=== PATIENT | female | born 1950 | race Caucasian/White ===

== ENCOUNTER 2022-07-01 07:57 | Emergency (ER) | payer OTHER ==
--- OUTSIDE RECORDS SUMMARY | 2022-07-01 08:31 | XMS REPORT | Continuity of Care Document ---
:1950 Author Organization [facility] t Address [address] [place] [address] Care Team Providers Name Role Phone SILVIO PRICE Attending Clinician Unavailable Ike Sawyer Attending Clinician IKE SAWYER Attending Clinician Unavailable Silvio Price Jr Attending Clinician Hamlet Nance Attending Clinician [phone] Ervin Delcid Attending Clinician Ike Sawyer Admitting Clinician IKE SAWYER Admitting Clinician Unavailable Silvio Price Jr Admitting Clinician Hamlet Nance Admitting Clinician [phone] Ervin Delcid Admitting Clinician Problems Condition Condition Condition Status Onset Resolution Last Treating Co mments Source Name Details Category Date Date Treatment Clinician Date Z01.818 - Z01.818 - Diagnosis Active 2021-01-08 Memoria ENCOUNTER ENCOUNTER - 14:43:00 l FOR OTHER FOR OTHER 00:01: Tiarra collins PREPROCEDU PREPROCEDU 00 Active 01/08/2021 TRACEE Velázquez CAROTID CAROTID Diagnosis Active 2021-01-17 Memlou STENOSIS STENOSIS - 21:38:00 l Active 00:00: Jesús 12/15/2020 00 [facility] N/A N/A Diagnosis Active 2021-01-13 Mem oria Active 12-15 06:56:00 l 12/15/2020 00:00: Kishore rubio 00 [facility] I10 - I10 - Diagnosis Active 2020-10-24 Mem oria ESSENTIAL ESSENTIAL 10-24 14:46:00 l (PRIMARY) (PRIMARY) 00:01: Herm karina HYPERTENSI HYPERTENSI 00 Active 10/24/2020 OPID [facility] PICC LINE PICC LINE Diagnosis Active 2020-09-18 Memoria INSERTION INSERTION 15 11:38:00 l /// 25.118 /// 25.118 00:00: He rmann Active 00 09/08/2020 [facility] Z95.820 Z95.820 Diagnosis Active 2019-10-14 Memoria PERIPHERAL PERIPHERAL 3-04 15:20:00 l VASCULAR VASCULAR 00:00: Kishore rubio ANGIOPLAST ANGIOPLAST 00 Y Y Active 08/29/2019 [facility] Z95.820 Z95.820 Diagnosis Active 2017-062018-06-13 Memoria Active 08-09 11:29:00 l 06/08/2018 00:00: Kishore rubio 00 [facility] ATHEROSCLE Diagnosis Active 2017-11-16 Memoria ROSIS OF ATHEROSCLE 11-11 16:01:00 l LONE PINE ROSIS OF 00:00: [place] ARTERIES LONE PINE 00 OF EX ARTERIES OF EX Active 11/11/2017 [facility] ABDOMINAL ABDOMINAL Diagnosis Active 2017-11-04 Memoria PAIN PAIN 07 09:15:00 l Active 00:00: Jesús 10/31/2017 00 [facility] 789.0 - 789.0 - Diagnosis Active 2017-12-14 Memoria ABDOMINAL ABDOMINAL 5- 09:38:00 l PAIN PAIN 00:01: Jesús Active 00 10/28/2017 [facility] [place] Z95.820 - Z95.820 - Diagnosis Active 2016-12-13 Memoria PERIPHERAL PERIPHERAL 5-12 16:13:00 l VASCULAR VASCULAR 00:01: Kishore rubio ANGIOPLAST ANGIOPLAST 00 Active 11/05/2016 [facility]ID [place] Z45.2 Z45.2 Diagnosis Active 2015-12-08 Mem oria Active 12-02 08:55:00 l 12/03/2015 00:00: Kishore n 00 [facility] Z00.00 - Z00.00 - Diagnosis Active 2016-01-01 Memoria ENCNTR FOR ENCNTR FOR 11-27 16:15:00 l GENERAL GENERAL 00:01: [place] ADULT ADULT 00 MEDIC MEDIC Active 11/28/2015 [facility] [place] Z00 - Z00 - Diagnosis Active 2016-01-01 Mem oria ENCNTR FOR ENCNTR FOR 11-18 16:25:00 l GENERAL GENERAL 00:01: [place] EXAM W/O EXAM W/O 00 CO CO Active 11/19/2015 OPID [facility] Femoral-po Femoral-p Problem Active 2021-01-16 Memoria pliteal opliteal 02-06 22:15:47 l artery artery 00:00: [place] bypass bypass 00 graft graft (procedure (procedure ) ) Active 02/06/2014 Problem 01/16/2021 OPID [facility] 443.9 443.9 Diagnosis Active 2014-02-20 Mem oria Active 01-09 21:44:00 l 01/09/2014 00:00: Kishore n [address] 443.9, 443.9, Diagnosis Active 2013-12-12 Me moria 440.20 440.20 12-10 08:00:00 l Active 00:00: [place] 12/10/2013 00 [facility] 447.1, 447.1, Diagnosis Active 2013-11-08 M emoria 433.10 433.10 10-23 15:38:00 l ATTN : ATTN : 00:00: Jesús SUBCLAVIAN SUBCLAVIAN 00 / / Active 10/23/2013 [facility] Incision Incision Problem Active 2021-01-16 Memoria of of 02-21 22:15:47 l mediastinu mediastinu 00:00: Jonas simmons m m 00 (procedure (procedure ) ) Active 02/21/2013 Problem 01/16/2021 OPID [facility] Mediastino Mediastin Problem Active 2013-03-04 Memoria faheem otomy 02-21 20:24:16 l Active 00:00: [place] 02/21/2013 00 Problem 03/04/2013 [facility] SUBCLAVIAN SUBCLAVIA Diagnosis Active 2013-03-[facility] STENOSIS N STENOSIS 02-01 21:51:00 l Active 00:00: [place] 02/01/2013 00 [facility] SUPLAVIAN SUPLAVIAN Diagnosis [facility], 01-02 08:49:00 l DX- DX- 00:00: [place] SUBCLAVIAN SUBCLAVIAN 00 S STNOSI S STNOSI Active 01/02/2013 [facility] Bronchiect Bronchiec Problem 2019-01-01 Memoria asis, tasis, 11:17:24 l uncomplica uncomplica He rmann matteo matteo 01/01/2019 [facility] Peripheral Periphera Problem 2019-01-01 Memoria vascular l vascular 11:17:24 l disease, disease, Kishore n unspecifie unspecifie d d 01/01/2019 [facility] Atheroscle Atheroscl Problem 2017-11-21 [facility] ro[facility] of erosis of 01:08:22 l [place]well cantwell [address] arteries arteries of of [facility] s with s with intermitte intermitte nt nt claudicati claudicati on, on, bilateral bilateral legs legs 11/21/2017 [facility] Thyroid Thyroid Problem Inactiv 2013-03-04 [facility] disease disease e 20:24:16 l Inactive [place] Problem 03/04/2013 [facility] Anemia Anemia Problem Resolve 2021-01-16 Mem oria (disorder) (disorder) d 22:15:47 l Resolved [place] Problem 01/16/2021 H/O BLOOD TRANSFUSIO N OPID [facility] Angina Angina Problem Resolve 2021-01-16 Mem oria (disorder) (disorder) d 22:15:47 l Resolved Jesús Problem 01/16/2021 OPID [facility] Coronary Coronary Problem Resolve 2021-01-16 Memoria arterioscl arterioscl d 22:15:47 l erosis erosis Jesús (disorder) (disorder) Resolved Problem [facility] 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 Memoria tumor of tumor of d 22:15:47 l cervix cervix Jesús (disorder) (disorder) Resolved Problem 01/16/2021 [facility] Disorder Disorder Problem Resolve 2021-01-16 Memoria of carotid of carotid d 22:15:47 l artery artery Jesús (disorder) (disorder) Resolved Problem 01/16/2021 OPID [facility] Fracture Fracture Problem Resolve 2021-01-16 Memoria of bone of bone d 22:15:47 l (disorder) (disorder) He rmann Resolved Problem 01/16/2021 [facility] Cerebrovas Cerebrova Problem Resolve 2021-01-16 Memoria cular scular d 22:15:47 l accident accident Kishore n (disorder) (disorder) [facility] of Disease Problem Resolve 2021-01-16 Memoria thyroid of thyroid d 22:15:47 l gland gland [place] (disorder) (disorder) Resolved Problem 01/16/2021 [facility] Myocardial Myocardia Problem Resolve 2021-01-16 Memoria infarction l d 22:15:47 l (disorder) infarction He rmann (disorder) Resolved Problem 01/16/2021 [facility]ID [facility] Anemia Anemia Problem Resolve 2013-03-04 Mem oria Resolved d 20:24:16 l Problem [place] 03/04/2013 <sup>1</durham p>H/O BLOOD TRANSFUSIO N [facility] Angina Angina Problem Resolve 2013-03-04 Mem oria Resolved d 20:24:16 l Problem Jesús 03/04/2013 [facility] CAD - CAD - Problem Resolve 2013-03-04 Hossein diana Coronary Coronary d 20:24:16 l artery artery [place] disease disease Resolved Problem 03/04/2013 [facility] Cancer of Cancer of Problem Resolve 2013-03-04 Memoria cervix cervix d 20:24:16 l Resolved [place] Problem 03/04/2013 OPID [facility] Carotid Carotid Problem Resolve 2013-03-04 M emoria artery artery d 20:24:16 l disease disease [place] Resolved Problem 03/04/2013 OPID [facility] Fracture Fracture Problem Resolve 2013-03-04 Memoria Resolved d 20:24:16 l Problem Jesús 03/04/2013 OPID [facility] Hyperchole Hyperchol Problem Active 2021-01-16 Memoria sterolemia esterolemi 22:15:47 l (disorder) a Kishore n (disorder) Active Problem 01/16/2021 [facility] Dyspnea on Dyspnea Problem Active 2021-01-16 Memoria exertion on 22:15:47 l (finding) exertion Lilian nn (finding) Active Problem 01/16/2021 [facility] Subclavian Subclavia Problem Active 2021-01-16 Memoria artery n artery 22:15:47 l stenosis stenosis Kishore n (disorder) (disorder) Active Problem 01/16/2021 [facility] Peripheral Periphera Problem Active 2021-01-16 Memoria vascular l vascular 22:15:47 l disease disease Jesús (disorder) (disorder) Active Problem 01/16/2021 [facility] HYPOTENSIO HYPOTENSI Problem Active 2014-02-12 Memoria N(Confirme ON(Confirm 18:26:32 l d) ed) Active Kishore n Problem 02/12/2014 [facility] Hyperchole Problem Active 2013-03-04 M emoria sterolemia Hyperchole 20:24:16 l sterolemia Kishore n Active Problem 03/04/2013 [facility] HYPOTENSIO HYPOTENSI Problem Active 2013-03-04 Memoria N ON Active 20:24:16 l Problem Jesús 03/04/2013 [facility] SOBOE - SOBOE - Problem Active 2013-03-04 Me moria Shortness Shortness 20:24:16 l of breath of breath Herm karina on on exertion exertion Active Problem 03/04/2013 OPID [facility] Subclavian Subclavia Problem Active 2013-03-04 Memoria artery n artery 20:24:16 l stenosis stenosis Kishore n Active Problem 03/04/2013 [facility] OCCLUSION OCCLUSION Diagnosis Active 2021-01-17 Memoria AND AND 21:38:00 l STENOSIS STENOSIS Kishore n OF OF BILATERAL BILATERAL XIAO XIAO Active [facility] SUBCLAVIAN SUBCLAVIA Diagnosis Active 2013-03-06 Memoria ANEURYSM N ANEURYSM 21:51:00 l Active Kishore rubio [facility] PERIPH PERIPH Diagnosis Active 2014-02-20 Me moria VASCULAR VASCULAR 21:44:00 l DIS NOS DIS NOS Jesús Active [facility] ATHSCL ATHSCL Diagnosis Active 2017-11-16 M emoria LONE PINE LONE PINE 16:01:00 l ARTERIES ARTERIES Kishore n OF EXTRM W OF EXTRM W INTRMT INTRMT Active [facility] History of Past Illness Condition Condition Condition Status Onset Resolution Last Treating Co mments Source Name Details Category Date Date Treatment Clinician Date Peripheral Periphera Problem 2017-062019-01-01 2019-01-01 Memoria vascular l vascular 08-19 11:17:24 11:17:24 l angioplast angioplast 03:45: He rmann y status y status 24 with with implants implants and grafts and grafts 06/18/2018 01/01/2019 [facility] Allergies, Adverse Reactions, Alerts Allergy Allergy Status Severity Reaction(s) Onset Inactive Treating Comm ents Source Name Type Date Date Clinician lavaquin lavaquin Active 2002-06 Memori a and and 1-07 l deriviti deriviti 00:00: Kishore n ves ves 00 codeine codeine Active 2002-06 Memoria 1-07 l 00:00: Jesús 00 morphine morphine Active 2002-06 Memori a 1-07 l 00:00: Jesús 00 Propacet Propacet Active 2002-06 Memori a 1-07 l 00:00: [place] 00 Adhesive Adhesive Active Memori a Tape Tape l Jesús Social History Social Habit Start Date Stop Date Quantity Comments Source Social History 2020-10-22 2020-10-22 [place] 19:48:47 19:48:47 Medications Ordered Filled Start Stop Current Ordering Indication Dosage Frequency Signature Comments Components Source Medication Medication Date Date Medication? Clinician (SIG) Name Name amLODIPine Yes 5 mg = 1 Mem oria 5 mg oral 7-21 tab, PO, l tablet 17:59: Daily, # [place] 00 30 tab, 0 Refill(s) amLODIPine Yes 5 mg = 1 Mem oria 5 mg oral 7-21 tab, PO, l tablet 17:59: Daily, # [place] 00 30 tab, 0 Refill(s) Aspirin 81 No Notes: Do Me moria MG Enteric 7-21 not crush l Coated 17:37: or chew. Jesús Tablet 00 (Same As: Ecotrin) clopidogrel No Notes: Hossein diana 7-21 (Same As: l 17:37: Plavix) [place] 00 Aspirin 81 No Notes: Do Me moria MG Enteric 7-21 not crush l Coated 17:37: or chew. Jesús Tablet 00 (Same As: Ecotrin) clopidogrel No Notes: Hossein diana 7-21 (Same As: l 17:37: Plavix) cephalexin Yes 500 mg = 1 M emoria 500 mg oral 7-21 cap, PO, l capsule 17:08: TID, X 5 Kishore n 00 day, # 15 cap, 0 Refill(s) cephalexin Yes 500 mg = 1 M emoria 500 mg oral 7-21 cap, PO, l capsule 17:08: TID, X 5 Kishore n 00 day, # 15 cap, 0 Refill(s) Amlodipine No Notes: Memor ia 7-21 (Same as: l 14:35: Norvasc) Amlodipine No Notes: Memor ia 7-21 (Same as: l 14:35: Norvasc) POLYETHYLEN No Notes: Hossein diana E GLYCOL 7-21 Dissolve l 3350 14:00: in 8 oz of [place] 00 water or juice. (Same as: Miralax) POLYETHYLEN No Notes: Hossein diana E GLYCOL 7-21 Dissolve l 3350 14:00: in 8 oz of Jesús 00 water or juice. (Same as: Miralax) clopidogrel Yes 75 mg = 1 M emoria 75 MG Oral 7-21 tab, PO, l Tablet 12:55: Daily, # [place] [Plavix] 00 90 tab, 0 Refill(s), Pharmacy: [id number], 149.86, cm, 01/08/21 13:20:00 CDT, Height, 62.091, kg, 01/08/21 13:20:00 CDT, Weight tramadol Yes 50 mg = 1 Hossein diana hydrochlori 7-21 tab, PO, l de 50 MG 12:55: Q6H, PRN Lilian nn Oral Tablet 00 Pain, X 5 day, # 18 tab, 0 Refill(s), Pharmacy: [facility] #[id number], 149.86, cm, 01/08/21 13:20:00 CDT, Height, 62.091, kg, 01/08/21 13:20:00 CDT, Weight clopidogrel Yes 75 mg = 1 M emoria 75 MG Oral 7-21 tab, PO, l Tablet 12:55: Daily, # Jesús [Plavix] 00 90 tab, 0 Refill(s), Pharmacy: [facility] #[id number], 149.86, cm, 01/08/21 13:20:00 CDT, Height, 62.091, kg, 01/08/21 13:20:00 CDT, Weight tramadol Yes 50 mg = 1 Hossein diana hydrochlori 7-21 tab, PO, l de 50 MG 12:55: Q6H, PRN Lilian nn Oral Tablet 00 Pain, X 5 day, # 18 tab, 0 Refill(s), Pharmacy: [facility] #[id number], 149.86, cm, 01/08/21 13:20:00 CDT, Height, 62.091, kg, 01/08/21 13:20:00 CDT, Weight Thyroxine No Notes: Memori a 7-21 Take 1 l 11:30: hour [place] 00 before or 2 hours after meal; Enteral feeds may interefere with the absorption of this medication . (Same as:Synthro id, Levothroid ) Thyroxine No Notes: Memori a 7-21 Take 1 l 11:30: hour [place] 00 before or 2 hours after meal; Enteral feeds may interefere with the absorption of this medication . (Same as:Synthro id, Levothroid ) Simvastatin No Notes: Hossein diana 7-21 (Same as: l 02:00: Zocor) [place] Famotidine No Notes: Memor ia 7-21 (Same as: l 02:00: Pepcid) Saline No Notes: Memoria Flush 0.9% 7-21 Same as: l 02:00: BD [place] Posiflush Sterile gabapentin No Notes: Memor ia 7-21 (Same as: l 02:00: Neurontin) Jesús Melatonin No Notes: Memori a 7-21 (Same as: l 02:00: Melatonin) Simvastatin No Notes: Hossein diana 7-21 (Same as: l 02:00: Zocor) Famotidine No Notes: Memor ia 7-21 (Same as: l 02:00: Pepcid) Saline No Notes: Memoria Flush 0.9% 7-21 Same as: l 02:00: BD Posiflush Sterile gabapentin No Notes: Memor ia 7-21 (Same as: l 02:00: Neurontin) Melatonin No Notes: Memori a 7-21 (Same as: l 02:00: Melatonin) Labetalol No Notes: Memori a 7-20 (Same as: l 23:21: Normodyne, [place] Trandate) Push over 2 minutes Give bolus over 2-3 minutes. Labetalol No Notes: Memori a 7-20 (Same as: l 23:21: Normodyne, Jesús 00 Trandate) Push over 2 minutes Give bolus over 2-3 minutes. Hydralazine No Notes: Hossein diana 7-20 (Same as: l 21:17: Apresoline ) Push over 5 minutes Hydralazine No Notes: Hossein diana 7-20 (Same as: l 21:17: Apresoline ) Push over 5 minutes Hydralazine No Notes: Hossein diana 7-20 (Same as: l 21:11: Apresoline ) May interfere w/enteral feedings. Take With Food Amlodipine No Notes: Memor ia 7-20 (Same as: l 21:11: Norvasc) Hydralazine No Notes: Hossein diana 7-20 (Same as: l 21:11: Apresoline ) May interfere w/enteral feedings. Take With Food Amlodipine No Notes: Memor ia 7-20 (Same as: l 21:11: Norvasc) ceFAZolin + No Notes: Hossein diana sterile 7-20 (Same As: l water 20 mL 21:00: Ancef, Herm karina 00 Kefzol) MEDICATION WASTE Product Size: 1000 mg Product Wasted: ___ mg ceFAZolin + No Notes: Hossein diana sterile 7-20 (Same As: l water 20 mL 21:00: Ancef, Herm karina 00 Kefzol) MEDICATION WASTE Product Size: 1000 mg Product Wasted: ___ mg Acetaminoph No Notes: Hossein diana en 325 MG / 7-20 (Same as: l Hydrocodone 16:57: Bard Lilian nn Bitartrate 00 325/5) Do 5 MG Oral not exceed Tablet 4gm/day of [Bard acetaminop 5/325] hen. Acetaminoph No Notes: Hossein diana en 325 MG / 7-20 (Same as: l Hydrocodone 16:57: Bard Lilian nn Bitartrate 00 325/5) Do 5 MG Oral not exceed Tablet 4gm/day of [Bard acetaminop 5/325] hen. Sodium No 1,000 mL, Memori a Chloride 7-20 Rate: 125 l 0.45% IV 16:55: ml/hr, Jesús 1,000 mL 00 Infuse over: 8 hr, Route: IV, Dosing Weight 62.091 kg, Total Volume: 1,000, Start date: 01/13/21 11:55:00 CDT, Duration: 12 hr, Stop date: 01/13/21 23:54:00 CDT, BSA: 1.63 m2, 0 Sodium No 1,000 mL, Memori a Chloride 7-20 Rate: 125 l 0.45% IV 16:55: ml/hr, [place] 1,000 mL 00 Infuse over: 8 hr, Route: IV, Dosing Weight 62.091 kg, Total Volume: 1,000, Start date: 01/13/21 11:55:00 CDT, Duration: 12 hr, Stop date: 01/13/21 23:54:00 CDT, BSA: 1.63 m2, 0 gabapentin 2021-0 No Notes: Memor ia 7-20 (Same as: l 16:54: Neurontin) Tramadol No Notes: Not Mem oria 7-20 to exceed l 16:54: 400mg/day. (Same As: Ultram) gabapentin No Notes: Memor ia 7-20 (Same as: l 16:54: Neurontin) Tramadol No Notes: Not Mem oria 7-20 to exceed l 16:54: 400mg/day. (Same As: Ultram) Acetaminoph No Notes: Do M emoria en 7-20 not exceed l 16:53: 4 gm/day. (Same as: Tylenol) Acetaminoph No Notes: Do M emoria en 7-20 not exceed l 16:53: 4 gm/day. (Same as: Tylenol) Acetaminoph No 100.4 F, M emoria en 7-20 Start l 16:51: date: 01/13/21 11:51:00 CDT, Duration: 30 day, Stop date: 02/12/21 11:50:00 CDT Albuterol No Notes: Memori a 0.833 MG/ML 7-20 (Same as: l / 16:51: Duoneb) Ipratropium 00 [place] 0.167 MG/ML Inhalant Solution Saline No Notes: Memoria Flush 0.9% 7-20 Same as: l 16:51: BD Posiflush Sterile Potassium No Notes: Memori a Chloride 7-20 (Same as: l 16:51: KCL) 10 mEq/100ml product recommende d for peripheral line administra tion. Infuse no faster than 10 mEq/hr if given peripheral ly. sodium No Notes: Memoria phosphate 7-20 Infuse l 16:51: over 4 [place] 00 hour. Do not infuse phosphorou s concurrent ly in the same line as TPN or IVF that contains calcium. For double lumen central lines, phosphorou s may be infused in a separate lumen from TPN. potassium 2021-0 No Notes: Memori a phosphate 7-20 (Same as: l 16:51: K Phosphate. ) Do not infuse phosphorou s concurrent ly in the same line as TPN or IVF that contains calcium. For double lumen central lines, phosphorou s may be infused in a separate lumen from TPN. 1 mMol phoshate has 1.47 mEq potassium Infuse over 4 hours potassium No Notes: Memori a phosphate-s 7-20 (Same as: l odium 16:51: Phos-NaK) Jesús phosphate 00 Each 1.5 250 mg-280 gm pkt has mg-160 mg 250mg oral powder phosphorou for s. Mix reconstitut w/2.5oz ion water and stir. Magnesium No Notes: Memori a Sulfate - WASTE: F/P l 16:51: - Sink; E - Municipal Trash Bin Magnesium No Notes: Memori a Oxide 7-20 (Same as: l 16:51: Mag-Ox 00 400) Magnesium oxide [id number] g elemental magnesium Dose=____m g magnesium oxide (___mg elemental magnesium) Calcium No Notes: Memoria Gluconate -20 WASTE: F/P l 16:51: - Sink; E - Municipal Trash Bin calcium No Notes: Memoria carbonate -20 (Same As: l 500 mg (200 16:51: Tums) Lilian nn mg 00 Calcium elemental Carbonate calcium) 500 mg = oral tablet 200 mg elemental calcium Dose = mg calcium carbonate ( mg elemental calcium) Acetaminoph No 100.4 F, M emoria en 7-20 Start l 16:51: date: 01/13/21 11:51:00 CDT, Duration: 30 day, Stop date: 02/12/21 11:50:00 CDT Albuterol No Notes: Memori a 0.833 MG/ML -20 (Same as: l / 16:51: Duoneb) Ipratropium 00 [place] 0.167 MG/ML Inhalant Solution Saline No Notes: Memoria Flush 0.9% 7-20 Same as: l 16:51: BD [place] 00 Posiflush Sterile Potassium No Notes: Memori a Chloride 7-20 (Same as: l 16:51: KCL) 10 Jesús 00 mEq/100ml product recommende d for peripheral line administra tion. Infuse no faster than 10 mEq/hr if given peripheral ly. sodium No Notes: Memoria phosphate 7-20 Infuse l 16:51: over 4 [place] 00 hour. Do not infuse phosphorou s concurrent ly in the same line as TPN or IVF that contains calcium. For double lumen central lines, phosphorou s may be infused in a separate lumen from TPN. potassium No Notes: Memori a phosphate 7-20 (Same as: l 16:51: K Phosphate. ) Do not infuse phosphorou s concurrent ly in the same line as TPN or IVF that contains calcium. For double lumen central lines, phosphorou s may be infused in a separate lumen from TPN. 1 mMol phoshate has 1.47 mEq potassium Infuse over 4 hours potassium No Notes: Memori a phosphate-s 7-20 (Same as: l odium 16:51: Phos-NaK) [place] phosphate 00 Each 1.5 250 mg-280 gm pkt has mg-160 mg 250mg oral powder phosphorou for s. Mix reconstitut w/2.5oz ion water and stir. Magnesium No Notes: Memori a Sulfate 7-20 WASTE: F/P l 16:51: - Sink; E - Municipal Trash Bin Magnesium No Notes: Memori a Oxide 7-20 (Same as: l 16:51: Mag-Ox Jesús 00 400) Magnesium oxide 260cb=351l g elemental magnesium Dose=____m g magnesium oxide (___mg elemental magnesium) Calcium No Notes: Memoria Gluconate 7-20 WASTE: F/P l 16:51: - Sink; E [place] 00 - Municipal Trash Bin calcium No Notes: Memoria carbonate 7-20 (Same As: l 500 mg (200 16:51: Tums) Lilian nn mg 00 Calcium elemental Carbonate calcium) 500 mg = oral tablet 200 mg elemental calcium Dose = mg calcium carbonate ( mg elemental calcium) Dilaudid 2020-0 No 0.5 mg, Memori a 7-20 Route: l 16:43: IVP, ONCE, Dosing Weight 62.091, kg, Priority: STAT, Start date: 01/13/21 11:43:00 CDT, Stop date: 01/13/21 11:43:00 CDT Dilaudid 2020-0 No 0.5 mg, Memori a 01-13 Route: l 16:43: IVP, ONCE, Dosing Weight 62.091, kg, Priority: STAT, Start date: 01/13/21 11:43:00 CDT, Stop date: 01/13/21 11:43:00 CDT norepinephr 2020-0 No Route: IV, Memoria ine (ANES) 7- Drug form: l 16:08: INJ, ONCE, Stop date: 01/13/21 11:08:00 CDT niCARdipine 2020-0 No Route: IV, Memoria (ANES) 7- Drug form: l 16:08: INJ, ONCE, Stop date: 01/13/21 11:08:00 CDT neostigmine 2020-0 No Route: IV, Memoria (ANES) 7-20 Drug form: l 16:08: INJ, ONCE, Stop date: 01/13/21 11:08:00 CDT ondansetron 2020-0 No Route: IV, Memoria (ANES) 7-20 Drug form: l 16:08: INJ, ONCE, Stop date: 01/13/21 11:08:00 CDT norepinephr 2020-0 No Route: IV, Memoria ine (ANES) 7-20 Drug form: l 16:08: INJ, ONCE, Stop date: 01/13/21 11:08:00 CDT niCARdipine 2020-0 No Route: IV, Memoria (ANES) 7-20 Drug form: l 16:08: INJ, ONCE, Stop date: 01/13/21 11:08:00 CDT neostigmine 2020-0 No Route: IV, Memoria (ANES) 7-20 Drug form: l 16:08: INJ, ONCE, Stop date: 01/13/21 11:08:00 CDT ondansetron No Route: IV, Memoria (ANES) 7- Drug form: l 16:08: INJ, ONCE, Stop date: 01/13/21 11:08:00 CDT protamine No Route: IV, Me moria (ANES) 7- Drug form: l 15:42: INJ, ONCE, Stop date: 01/13/21 10:42:00 CDT protamine No Route: IV, Me moria (ANES) 7- Drug form: l 15:42: INJ, ONCE, Stop date: 01/13/21 10:42:00 CDT niCARdipine No Route: IV, Memoria (ANES) 7- Drug form: l 14:41: INJ, ONCE, Stop date: 01/13/21 9:41:00 CDT niCARdipine No Route: IV, Memoria (ANES) 7- Drug form: l 14:41: INJ, ONCE, Stop date: 01/13/21 9:41:00 CDT heparin No Route: IV, Hossein diana (ANES) - Drug form: l 14:21: INJ, ONCE, Stop date: 01/13/21 9:21:00 CDT heparin 0 No Route: IV, Hossein diana (ANES) - Drug form: l 14:21: INJ, ONCE, Stop date: 01/13/21 9:21:00 CDT glycopyrrol No Route: IV, Memoria ate (ANES) - Drug form: l 14:06: INJ, ONCE, Stop date: 01/13/21 9:06:00 CDT ePHEDrine No Route: IV, Me moria (ANES) 7- Drug form: l 14:06: INJ, ONCE, Stop date: 01/13/21 9:06:00 CDT glycopyrrol No Route: IV, Memoria ate (ANES) 7-20 Drug form: l 14:06: INJ, ONCE, Stop date: 01/13/21 9:06:00 CDT ePHEDrine No Route: IV, Me moria (ANES) 7-20 Drug form: l 14:06: INJ, ONCE, Stop date: 01/13/21 9:06:00 CDT Vitamin C No Notes: Memori a 7-20 (Same as: l 14:00: Vitamin C) Vitamin B12 No Notes: Hossein diana 7-20 (Same As: l 14:00: Vitamin B12) Labetalol No Notes: Memori a 7-20 With food. l 14:00: (Same as:Trandat e, Normodyne) Fish Oil No Notes: Memoria 7-20 (Same as: l 14:00: MaxEPA, [place] 3 fish oil ) Vitamin C No Notes: Memori a 7-20 (Same as: l 14:00: Vitamin C) Vitamin B12 No Notes: Hossein diana 7-20 (Same As: l 14:00: Vitamin B12) Labetalol No Notes: Memori a 7-20 With food. l 14:00: (Same as:Trandat e, Normodyne) Fish Oil No Notes: Memoria 7-20 (Same as: l 14:00: MaxEPA, [place] 3 fish oil ) fentaNYL No Route: IV, Mem oria (ANES) 7-20 Drug form: l 13:45: INJ, ONCE, Stop date: 01/13/21 8:45:00 CDT propofol No Route: IV, Mem oria (ANES) 7-20 Drug form: l 13:45: INJ, ONCE, Stop date: 01/13/21 8:45:00 CDT rocuronium No Route: IV, M emoria (ANES) 7-20 Drug form: l 13:45: INJ, ONCE, Stop date: 01/13/21 8:45:00 CDT lidocaine 0 No Route: IV, Me moria (ANES) 7- Drug form: l 13:45: INJ, ONCE, Stop date: 01/13/21 8:45:00 CDT phenylephri 0 No Route: IV, Memoria ne (ANES) 7- Drug form: l 13:45: INJ, ONCE, Stop date: 01/13/21 8:45:00 CDT fentaNYL 2020-0 No Route: IV, Mem oria (ANES) 7- Drug form: l 13:45: INJ, ONCE, Stop date: 01/13/21 8:45:00 CDT propofol 0 No Route: IV, Mem oria (ANES) 01-13 Drug form: l 13:45: INJ, ONCE, Stop date: 01/13/21 8:45:00 CDT rocuronium No Route: IV, M emoria (ANES) - Drug form: l 13:45: INJ, ONCE, Stop date: 01/13/21 8:45:00 CDT lidocaine 0 No Route: IV, Me moria (ANES) 7- Drug form: l 13:45: INJ, ONCE, Stop date: 01/13/21 8:45:00 CDT phenylephri 0 No Route: IV, Memoria ne (ANES) - Drug form: l 13:45: INJ, ONCE, Stop date: 01/13/21 8:45:00 CDT ceFAZolin 0 No Route: IV, Me moria (ANES) 7- Drug form: l 13:40: INJ, ONCE, Stop date: 01/13/21 8:40:00 CDT ceFAZolin 2020-0 No Route: IV, Me moria (ANES) 7- Drug form: l 13:40: INJ, ONCE, Stop date: 01/13/21 8:40:00 CDT remifentani 0 No Route: IV, Memoria l (ANES) 1 7-20 Drug form: l mg 13:36: INJ, Start Jesús 00 date: 01/13/21 8:36:00 CDT, Stop date: 01/13/21 9:36:00 CDT remifentani No Route: IV, Memoria l (ANES) 1 7-20 Drug form: l mg 13:36: INJ, Start [place] date: 01/13/21 8:36:00 CDT, Stop date: 01/13/21 9:36:00 CDT norepinephr No Route: IV, Memoria ine (ANES) 7-20 Drug form: l 10 13:07: INJ, Start [place] microgram date: 01/13/21 8:07:00 CDT, Stop date: 01/13/21 9:07:00 CDT norepinephr No Route: IV, Memoria ine (ANES) 7-20 Drug form: l 10 13:07: INJ, Start Jesús microgram date: 01/13/21 8:07:00 CDT, Stop date: 01/13/21 9:07:00 CDT Hydralazine No Notes: Hossein diana Hydrochlori 7-20 (Same as: l de 50 MG 12:58: Apresoline Her mckee Oral Tablet 00 ) May interfere w/enteral feedings Take With Food Hydralazine No Notes: Hossein diana Hydrochlori 7-20 (Same as: l de 50 MG 12:58: Apresoline Her mckee Oral Tablet 00 ) May interfere w/enteral feedings Take With Food Sodium No 1,000 mL, Memori a Chloride 7-20 Rate: 125 l 0.45% IV 12:51: ml/hr, Jesús 1,000 mL 00 Infuse over: 8 hr, Route: IV, Dosing Weight 62.091 kg, Total Volume: 1,000, Start date: 01/13/21 7:51:00 CDT, Duration: 30 day, Stop date: 02/12/21 7:50:00 CDT, BSA: 1.63 m2, 0 Saline No Notes: Memoria Flush 0.9% 7-20 (Same as: l 12:51: BD Jesús 00 Posiflush) Sodium No 1,000 mL, Memori a Chloride 7-20 Rate: 125 l 0.45% IV 12:51: ml/hr, Jesús 1,000 mL 00 Infuse over: 8 hr, Route: IV, Dosing Weight 62.091 kg, Total Volume: 1,000, Start date: 01/13/21 7:51:00 CDT, Duration: 30 day, Stop date: 02/12/21 7:50:00 CDT, BSA: 1.63 m2, 0 Saline No Notes: Memoria Flush 0.9% 7-20 (Same as: l 12:51: BD Jesús 00 Posiflush) Isolyte S No Route: IV, Me moria PH 7.4 7-20 Total l (ANES) 1000 12:47: Volume: Her mckee mL 00 1,000, Start date: 01/13/21 7:47:00 CDT, Stop date: 01/13/21 8:47:00 CDT Isolyte S No Route: IV, Me moria PH 7.4 7-20 Total l (ANES) 1000 12:47: Volume: Her mckee mL 00 1,000, Start date: 01/13/21 7:47:00 CDT, Stop date: 01/13/21 8:47:00 CDT Sodium No Route: IV, Memor ia Chloride 7-20 Total l 0.9% IV 12:46: Volume: [place]lin (ANES) 500 00 500, Start mL date: 01/13/21 7:46:00 CDT, Stop date: 01/13/21 8:46:00 CDT Sodium No Route: IV, Memor ia Chloride 7-20 Total l 0.9% IV 12:46: Volume: Jesús (ANES) 500 00 500, Start mL date: 01/13/21 7:46:00 CDT, Stop date: 01/13/21 8:46:00 CDT Cefazolin No Notes: Memori a 7-15 (Same As: l 19:00: Ancef, [place] 00 Kefzol) MEDICATION WASTE Product Size: 1000 mg Product Wasted: ___ mg Cefazolin No Notes: Memori a 7-15 (Same As: l 19:00: AncefJesús Kefzol) MEDICATION WASTE Product Size: 1000 mg Product Wasted: ___ mg Restoril No Notes: Memoria 7-15 (Same As: l 18:19: Restoril) Hazardous Drug Group 3:Reproduc tive risk Hazardous Drug -- Refer to safe handling procedure PPE Matrix Sodium No 250 mL, Memoria Chloride 7-15 Rate: To l 0.9% 18:19: prime line Jesús (titrate) 00 and flush 250 mL remaining blood products., Dosing Weight 63.364, kg, Route: IV, Total Volume: 250, Priority: Routine, Start Date: 01/08/21 13:19:00 CDT, Duration: 1 day, Stop date: 01/09/21 13:18:00 CDT, Replace Every: 24 hr, 0 Restoril No Notes: Memoria 7-15 (Same As: l 18:19: Restoril) Hazardous Drug Group 3:Reproduc tive risk Hazardous Drug -- Refer to safe handling procedure PPE Matrix Sodium No 250 mL, Memoria Chloride 7-15 Rate: To l 0.9% 18:19: prime line Conklin (titrate) 00 and flush 250 mL remaining blood products., Dosing Weight 63.364, kg, Route: IV, Total Volume: 250, Priority: Routine, Start Date: 01/08/21 13:19:00 CDT, Duration: 1 day, Stop date: 01/09/21 13:18:00 CDT, Replace Every: 24 hr, 0 levothyroxi Yes 75 Memori a ne 75 mcg 7-14 microgram l (0.075 mg) 20:47: = 1 tab, Her mckee oral tablet 00 PO, Daily levothyroxi Yes 75 Memori a ne 75 mcg 7-14 microgram l (0.075 mg) 20:47: = 1 tab, Her mckee oral tablet 00 PO, Daily Vitamin B12 No Notes: Hossein diana 5-06 (Same As: l 14:00: Vitamin Jesús 00 B12) Vitamin B12 No Notes: Hossein diana 5-06 (Same As: l 14:00: Vitamin B12) Labetalol No 100 mg, 1 Mem oria 5-06 tab, l 02:00: Route: PO, Jesús 00 Drug form: TAB, Q12H, Dosing Weight 63.364, kg, Start date: 10/29/20 21:00:00 CDT, Duration: 30 day, Stop date: 11/28/20 9:00:00 CDT Labetalol No 100 mg, 1 Mem oria 5-06 tab, l 02:00: Route: PO, [place] 00 Drug form: TAB, Q12H, Dosing Weight 63.364, kg, Start date: 10/29/20 21:00:00 CDT, Duration: 30 day, Stop date: 11/28/20 9:00:00 CDT Vitamin C No Notes: Memori a 5-05 (Same as: l 22:00: Vitamin C) Fish Oil No Notes: Memoria 5-05 (Same as: l 22:00: MaxEPA, [place] 00 [place] 3 fish oil ) Vitamin C No Notes: Memori a 5-05 (Same as: l 22:00: Vitamin C) Fish Oil No Notes: Memoria 5-05 (Same as: l 22:00: MaxEPA, Jesús 00 [place] 3 fish oil ) tramadol Yes 50 mg = 1 Hossein diana hydrochlori 5-05 tab, PO, l de 50 MG 19:36: Q6H, PRN Lilian nn Oral Tablet 00 Pain, X 5 day, # 18 tab, 0 Refill(s), Pharmacy: [facility] #[id number], 149.86, cm, 10/24/20 13:06:00 CDT, Height, 63.364, kg, 10/24/20 13:06:00 CDT, Weight tramadol Yes 50 mg = 1 Hossein diana hydrochlori 5-05 tab, PO, l de 50 MG 19:36: Q6H, PRN Lilian nn Oral Tablet 00 Pain, X 5 day, # 18 tab, 0 Refill(s), Pharmacy: [facility] #[id number], 149.86, cm, 10/24/20 13:06:00 CDT, Height, 63.364, kg, 10/24/20 13:06:00 CDT, Weight clopidogrel No Notes: Hossein diana 5-05 (Same As: l 14:00: Plavix) Hydralazine No Notes: Hossein diana Hydrochlori 5-05 (Same as: l de 50 MG 14:00: Apresoline Her mckee Oral Tablet ) May interfere w/enteral feedings Take With Food Aspirin No Notes: Do Memor ia 5-05 not crush l 14:00: or chew. Jesús 00 (Same As: Ecotrin) clopidogrel No Notes: Hossein diana 5-05 (Same As: l 14:00: Plavix) Hydralazine No Notes: Hossein diana Hydrochlori 5-05 (Same as: l de 50 MG 14:00: Apresoline Her mckee Oral Tablet 00 ) May interfere w/enteral feedings Take With Food Aspirin No Notes: Do Memor ia 5-05 not crush l 14:00: or chew. Jesús 00 (Same As: Ecotrin) Thyroxine No Notes: Memori a 5-05 Take 1 l 11:30: hour [place] 00 before or 2 hours after meal; Enteral feeds may interefere with the absorption of this medication .(Same as:Levothr oid, Synthroid) Thyroxine No Notes: Memori a 5-05 Take 1 l 11:30: hour [place] 00 before or 2 hours after meal; Enteral feeds may interefere with the absorption of this medication .(Same as:Levothr oid, Synthroid) Labetalol No Notes: Memori a 5-05 With food. l 02:00: (Same as:Trandat e, Normodyne) Simvastatin No Notes: Hossein diana 5-05 (Same as: l 02:00: Zocor) Labetalol No Notes: Memori a 5-05 With food. l 02:00: (Same as:Trandat e, Normodyne) Simvastatin No Notes: Hossein diana 5-05 (Same as: l 02:00: Zocor) Ondansetron 0 No 4 mg, Memor ia 5-04 Route: IV, l 23:04: ONCE, Dosing Weight 63.364, kg, Start date: 10/28/20 18:04:00 CDT, Stop date: 10/28/20 18:04:00 CDT Ondansetron No 4 mg, Memor ia 5-04 Route: IV, l 23:04: ONCE, Dosing Weight 63.364, kg, Start date: 10/28/20 18:04:00 CDT, Stop date: 10/28/20 18:04:00 CDT ceFAZolin + No Notes: Hossein idana sterile 5-04 (Same As: l water 20 mL 23:00: Ancef, Herm karina Kefzol) MEDICATION WASTE Product Size: 1000 mg Product Wasted: ___ mg Tylenol No Notes: Max Hossein diana 5-04 acetaminop l 23:00: hen 4000 Jesús 00 mg/day (4 gm/day). (Same as: Tylenol Extra Strength) ceFAZolin + No Notes: Hossein diana sterile 5-04 (Same As: l water 20 mL 23:00: Ancef, Herm karina 00 Kefzol) MEDICATION WASTE Product Size: 1000 mg Product Wasted: ___ mg Tylenol No Notes: Max Hossein diana 5-04 acetaminop l 23:00: hen 4000 Jesús 00 mg/day (4 gm/day). (Same as: Tylenol Extra Strength) Hydralazine No Notes: Hossein diana 5-04 (Same as: l 22:00: Apresoline ) Push over 5 minutes Hydralazine No Notes: Hossein diana 5-04 (Same as: l 22:00: Apresoline ) Push over 5 minutes Sodium 2020-0 No 250 mL, Memoria Chloride 5-04 Route: l 0.9% IV 20:47: IVPB, Start date: 10/28/20 15:47:00 CDT, Duration: 30 day, Stop date: 11/27/20 15:46:00 CDT, PRN Line Flush, 0 Sodium No 250 mL, Memoria Chloride 5-04 Route: l 0.9% IV 20:47: IVPB, Start date: 10/28/20 15:47:00 CDT, Duration: 30 day, Stop date: 11/27/20 15:46:00 CDT, PRN Line Flush, 0 Oxycodone No Notes: Memori a Hydrochlori 5-04 (Same as: l de 5 MG 20:17: Roxicodone Herm karina Oral Tablet ) Tramadol No Notes: Not Mem oria 5-04 to exceed l 20:17: 400mg/day. [place] 00 (Same As: Ultram) Oxycodone No Notes: Memori a Hydrochlori 5-04 (Same as: l de 5 MG 20:17: Roxicodone Herm karina Oral Tablet ) Tramadol No Notes: Not Mem oria 5-04 to exceed l 20:17: 400mg/day. [place] 00 (Same As: Ultram) Temazepam No Notes: Memori a 5-04 (Same As: l 18:31: Restoril) Hazardous Drug Group 3:Reproduc tive risk Hazardous Drug -- Refer to safe handling procedure PPE Matrix Temazepam No Notes: Memori a 5-04 (Same As: l 18:31: Restoril) Hazardous Drug Group 3:Reproduc tive risk Hazardous Drug -- Refer to safe handling procedure PPE Matrix Potassium No Notes: Memori a Chloride 5-04 (Same as: l 18:23: KCL) 10 00 mEq/100ml product recommende d for peripheral line administra tion. Infuse no faster than 10 mEq/hr if given peripheral ly. sodium No Notes: Memoria phosphate 5-04 Infuse l 18:23: over 4 Jesús 00 hour. Do not infuse phosphorou s concurrent ly in the same line as TPN or IVF that contains calcium. For double lumen central lines, phosphorou s may be infused in a separate lumen from TPN. potassium No Notes: Memori a phosphate - (Same as: l 18:23: K Jesús 00 Phosphate. ) Do not infuse phosphorou s concurrent ly in the same line as TPN or IVF that contains calcium. For double lumen central lines, phosphorou s may be infused in a separate lumen from TPN. 1 mMol phoshate has 1.47 mEq potassium Infuse over 4 hours potassium No Notes: Memori a phosphate-s - (Same as: l odium 18:23: Phos-NaK) Jesús phosphate 00 Each 1.5 250 mg-280 gm pkt has mg-160 mg 250mg oral powder phosphorou for s. Mix reconstitut w/2.5oz ion water and stir. Magnesium No Notes: Memori a Sulfate 10-28 WASTE: F/P l 18:23: - Sink; E [place] - Municipal Trash Bin Magnesium No Notes: Memori a Oxide - (Same as: l 18:23: Mag-Ox [place] 00 400) Magnesium oxide [id number] g elemental magnesium Dose=____m g magnesium oxide (___mg elemental magnesium) Calcium No Notes: Memoria Gluconate - WASTE: F/P l 18:23: - Sink; E Jesús - [facility] Trash Bin calcium No Notes: Memoria carbonate - (Same As: l 500 mg (200 18:23: Tums) Lilian nn mg 00 Calcium elemental Carbonate calcium) 500 mg = oral tablet 200 mg elemental calcium Dose = mg calcium carbonate ( mg elemental calcium) Potassium No Notes: Memori a Chloride - (Same as: l 18:23: KCL) 10 [place] 00 mEq/100ml product recommende d for peripheral line administra tion. Infuse no faster than 10 mEq/hr if given peripheral ly. sodium No Notes: Memoria phosphate 5-04 Infuse l 18:23: over 4 [place] 00 hour. Do not infuse phosphorou s concurrent ly in the same line as TPN or IVF that contains calcium. For double lumen central lines, phosphorou s may be infused in a separate lumen from TPN. potassium No Notes: Memori a phosphate 10-28 (Same as: l 18:23: K Jesús 00 Phosphate. ) Do not infuse phosphorou s concurrent ly in the same line as TPN or IVF that contains calcium. For double lumen central lines, phosphorou s may be infused in a separate lumen from TPN. 1 mMol phoshate has 1.47 mEq potassium Infuse over 4 hours potassium No Notes: Memori a phosphate-s 10-28 (Same as: l odium 18:23: Phos-NaK) [place] phosphate 00 Each 1.5 250 mg-280 gm pkt has mg-160 mg 250mg oral powder phosphorou for s. Mix reconstitut w/2.5oz ion water and stir. Magnesium No Notes: Memori a Sulfate 10-28 WASTE: F/P l 18:23: - Sink; E Jesús 00 - [facility] Trash Bin Magnesium No Notes: Memori a Oxide 10-28 (Same as: l 18:23: Mag-Ox [place] 00 400) Magnesium oxide 633mg=770k g elemental magnesium Dose=____m g magnesium oxide (___mg elemental magnesium) Calcium No Notes: Memoria Gluconate 10-28 WASTE: F/P l 18:23: - Sink; E [place] - [facility] Trash Bin calcium No Notes: Memoria carbonate 10-28 (Same As: l 500 mg (200 18:23: Tums) Lilian nn mg 00 Calcium elemental Carbonate calcium) 500 mg = oral tablet 200 mg elemental calcium Dose = mg calcium carbonate ( mg elemental calcium) Acetaminoph No Notes: Max Memoria en - acetaminop l 18:22: hen 4000 [place] 00 mg/day (4 gm/day). (Same as: Tylenol Extra Strength) Acetaminoph No Notes: Max Memoria en -04 acetaminop l 18:22: hen 4000 Jesús 00 mg/day (4 gm/day). (Same as: Tylenol Extra Strength) ondansetron No Route: IV, Memoria (ANES) 5-04 Drug form: l 17:48: INJ, ONCE, Stop date: 10/28/20 12:48:00 CDT neostigmine No Route: IV, Memoria (ANES) 5-04 Drug form: l 17:48: INJ, ONCE, Stop date: 10/28/20 12:48:00 CDT ondansetron No Route: IV, Memoria (ANES) 5-04 Drug form: l 17:48: INJ, ONCE, Stop date: 10/28/20 12:48:00 CDT neostigmine No Route: IV, Memoria (ANES) 5-04 Drug form: l 17:48: INJ, ONCE, Stop date: 10/28/20 12:48:00 CDT protamine No Route: IV, Me moria (ANES) 5-04 Drug form: l 17:41: INJ, ONCE, Stop date: 10/28/20 12:41:00 CDT protamine No Route: IV, Me moria (ANES) 5-04 Drug form: l 17:41: INJ, ONCE, Stop date: 10/28/20 12:41:00 CDT heparin No Route: IV, Hossein diana (ANES) 5-04 Drug form: l 16:45: INJ, ONCE, Stop date: 10/28/20 11:45:00 CDT heparin No Route: IV, Hossein diana (ANES) 5-04 Drug form: l 16:45: INJ, ONCE, Stop date: 10/28/20 11:45:00 CDT lidocaine 0 No Route: IV, Me moria (ANES) 5-04 Drug form: l 16:25: INJ, ONCE, Stop date: 10/28/20 11:25:00 CDT glycopyrrol No Route: IV, Memoria ate (ANES) 5-04 Drug form: l 16:25: INJ, ONCE, Stop date: 10/28/20 11:25:00 CDT lidocaine No Route: IV, Me moria (ANES) 5- Drug form: l 16:25: INJ, ONCE, Stop date: 10/28/20 11:25:00 CDT glycopyrrol 0 No Route: IV, Memoria ate (ANES) 5- Drug form: l 16:25: INJ, ONCE, Stop date: 10/28/20 11:25:00 CDT phenylephri 2020-0 No Route: IV, Memoria ne (ANES) 5- Drug form: l 16:20: INJ, ONCE, Stop date: 10/28/20 11:20:00 CDT ePHEDrine 0 No Route: IV, Me moria (ANES) 5- Drug form: l 16:20: INJ, ONCE, Stop date: 10/28/20 11:20:00 CDT phenylephri 0 No Route: IV, Memoria ne (ANES) 5- Drug form: l 16:20: INJ, ONCE, Stop date: 10/28/20 11:20:00 CDT ePHEDrine 2020-0 No Route: IV, Me moria (ANES) 5- Drug form: l 16:20: INJ, ONCE, Stop date: 10/28/20 11:20:00 CDT fentaNYL 2020-0 No Route: IV, Mem oria (ANES) 5- Drug form: l 16:09: INJ, ONCE, Stop date: 10/28/20 11:09:00 CDT propofol 2020-0 No Route: IV, Mem oria (ANES) 5- Drug form: l 16:09: INJ, ONCE, Stop date: 10/28/20 11:09:00 CDT rocuronium 2020-0 No Route: IV, M emoria (ANES) 5- Drug form: l 16:09: INJ, ONCE, Stop date: 10/28/20 11:09:00 CDT succinylcho 2020-0 No Route: IV, Memoria line (ANES) 5- Drug form: l 16:09: INJ, ONCE, Stop date: 10/28/20 11:09:00 CDT fentaNYL 2020-0 No Route: IV, Mem oria (ANES) 5- Drug form: l 16:09: INJ, ONCE, Stop date: 10/28/20 11:09:00 CDT propofol 2020-0 No Route: IV, Mem oria (ANES) 5- Drug form: l 16:09: INJ, ONCE, Stop date: 10/28/20 11:09:00 CDT rocuronium 2020-0 No Route: IV, M emoria (ANES) 5- Drug form: l 16:09: INJ, ONCE, Stop date: 10/28/20 11:09:00 CDT succinylcho 2020-0 No Route: IV, Memoria line (ANES) 5- Drug form: l 16:09: INJ, ONCE, Stop date: 10/28/20 11:09:00 CDT dexamethaso 2020-0 No Route: IV, Memoria ne (ANES) 5- Drug form: l 16:04: INJ, ONCE, Stop date: 10/28/20 11:04:00 CDT ceFAZolin 2020-0 No Route: IV, Me moria (ANES) 5-04 Drug form: l 16:04: INJ, ONCE, Stop date: 10/28/20 11:04:00 CDT dexamethaso 2020-0 No Route: IV, Memoria ne (ANES) 5-04 Drug form: l 16:04: INJ, ONCE, Stop date: 10/28/20 11:04:00 CDT ceFAZolin 2020-0 No Route: IV, Me moria (ANES) 5-04 Drug form: l 16:04: INJ, ONCE, Stop date: 10/28/20 11:04:00 CDT phenylephri 2020-0 No Route: IV, Memoria ne (ANES) 5-04 Drug form: l 100 15:40: INJ, Start [place] 00 date: 10/28/20 10:40:00 CDT, Stop date: 10/28/20 11:40:00 CDT phenylephri 2020-0 No Route: IV, Memoria ne (ANES) 5-04 Drug form: l 100 15:40: INJ, Start Jesús microgram 00 date: 10/28/20 10:40:00 CDT, Stop date: 10/28/20 11:40:00 CDT Sodium 0 No 1,000 mL, Memori a Chloride 5-04 Rate: 125 l 0.45% IV 15:33: ml/hr, Jesús 1,000 mL 00 Infuse over: 8 hr, Route: IV, Dosing Weight 63.364 kg, Total Volume: 1,000, Start date: 10/28/20 10:33:00 CDT, Duration: 30 day, Stop date: 11/27/20 10:32:00 CDT, 1.65, m2, 0 Saline No Notes: Memoria Flush 0.9% 5-04 (Same as: l 15:33: BD Jesús 00 Posiflush) Sodium No 1,000 mL, Memori a Chloride 5-04 Rate: 125 l 0.45% IV 15:33: ml/hr, Jesús 1,000 mL 00 Infuse over: 8 hr, Route: IV, Dosing Weight 63.364 kg, Total Volume: 1,000, Start date: 10/28/20 10:33:00 CDT, Duration: 30 day, Stop date: 11/27/20 10:32:00 CDT, 1.65, m2, 0 Saline No Notes: Memoria Flush 0.9% 5-04 (Same as: l 15:33: BD Jesús 00 Posiflush) Lactated No Route: IV, Mem oria Ringers 5-04 Total l Injection 15:14: Volume: Lilian nn IV (ANES) 00 1,000, 1000 mL Start date: 10/28/20 10:14:00 CDT, Stop date: 10/28/20 11:14:00 CDT Lactated No Route: IV, Mem oria Ringers 5-04 Total l Injection 15:14: Volume: Lilian nn IV (ANES) 00 1,000, 1000 mL Start date: 10/28/20 10:14:00 CDT, Stop date: 10/28/20 11:14:00 CDT Cefazolin No Notes: Memori a 4-30 (Same As: l 18:00: Ancef, Jesús 00 Kefzol) MEDICATION WASTE Product Size: 1000 mg Product Wasted: ___ mg Cefazolin No Notes: Memori a 4-30 (Same As: l 18:00: Ancef, Jesús 00 Kefzol) MEDICATION WASTE Product Size: 1000 mg Product Wasted: ___ mg Restoril No Notes: Memoria 4-30 (Same As: l 17:47: Restoril) [place] 00 Hazardous Drug Group 3:Reproduc tive risk Hazardous Drug -- Refer to safe handling procedure PPE Matrix Sodium No 250 mL, Memoria Chloride 4-30 Rate: To l 0.9% 17:47: prime line Jesús (titrate) 00 and flush 250 mL remaining blood products., Dosing Weight 63.636, kg, Route: IV, Total Volume: 250, Priority: Routine, Start Date: 10/24/20 12:47:00 CDT, Duration: 1 day, Stop date: 10/25/20 12:46:00 CDT, Replace Every: 24 hr, 0 Restoril No Notes: Memoria 4-30 (Same As: l 17:47: Restoril) Hazardous Drug Group 3:Reproduc tive risk Hazardous Drug -- Refer to safe handling procedure PPE Matrix Sodium No 250 mL, Memoria Chloride 4-30 Rate: To l 0.9% 17:47: prime line Jesús (titrate) 00 and flush 250 mL remaining blood products., Dosing Weight 63.636, kg, Route: IV, Total Volume: 250, Priority: Routine, Start Date: 10/24/20 12:47:00 CDT, Duration: 1 day, Stop date: 10/25/20 12:46:00 CDT, Replace Every: 24 hr, 0 temazepam Yes 30 mg = 1 Mem oria 30 mg oral 4-28 cap, PO, l capsule 20:07: Bedtime, Kishore n 00 PRN Sleep temazepam Yes 30 mg = 1 Mem oria 30 mg oral 4-28 cap, PO, l capsule 20:07: Bedtime, Kishore n 00 PRN Sleep Hydralazine Yes 50 mg = 1 M emoria Hydrochlori 4-28 tab, PO, l de 50 MG 20:04: Daily, OR Herm karina Oral Tablet 00 PRN Hydralazine Yes 50 mg = 1 M emoria Hydrochlori 4-28 tab, PO, l de 50 MG 20:04: Daily, OR Herm karina Oral Tablet 00 PRN simvastatin Yes 20 mg = 1 M emoria 20 mg oral 4-28 tab, PO, l tablet 20:02: Bedtime [place] simvastatin Yes 20 mg = 1 M emoria 20 mg oral 4-28 tab, PO, l tablet 20:02: Bedtime Jesús 00 Omnipaque No Notes: Memori a 350 3-25 (Same l injectable 16:57: as:Omnipaq H ermann solution 00 ue 350) WASTE: F/P - Black; E - Municipal Trash Bin Omnipaque No Notes: Memori a 350 3-25 (Same l injectable 16:57: as:Omnipaq H ermann solution 00 ue 350) WASTE: F/P - Black; E - [facility] Trash Bin Omnipaque 2017-06 No Notes: Memori a 350 2-18 (same l injectable 19:30: as:Omnipaq H ermann solution 00 ue 350). WASTE: F/P - Black; E - [facility] Trash Bin Omnipaque 2017-06 No Notes: Memori a 350 2-18 (same l injectable 19:30: as:Omnipaq H ermann solution 00 ue 350). WASTE: F/P - Black; E - Municipal Trash Bin carvedilol No Notes: Memor ia 5-26 Give with l 02:00: food. (Same As: Coreg) carvedilol No Notes: Memor ia 5-26 Give with l 02:00: food. (Same As: Coreg) lisinopril Yes 20 mg = 1 Me moria 20 mg oral 5-25 tab, PO, l tablet 21:54: Daily, # Conklin 00 30 tab, 0 Refill(s), [id number] labetalol Yes 100 mg = 1 Me moria 100 mg oral 5-25 tab, PO, l tablet 21:54: Q12H, # 60 Lilian nn 00 tab, 0 Refill(s), [facility]: [id number] lisinopril Yes 20 mg = 1 Me moria 20 mg oral 5-25 tab, PO, l tablet 21:54: Daily, # Conklin 00 30 tab, 0 Refill(s), [facility]: [id number] labetalol Yes 100 mg = 1 Me moria 100 mg oral 5-25 tab, PO, l tablet 21:54: Q12H, # 60 Lilian nn 00 tab, 0 Refill(s), [facility]acy: [facility] #[id number] Labetalol No Notes: Memori a 5-25 With food. l 20:55: (Same Ejsús 00 as:Trandat e, Normodyne) Lisinopril No Notes: Memor ia 5-25 (Same as: l 20:55: Prinivil, Jesús 00 Zestril) Labetalol No Notes: Memori a 5-25 With food. l 20:55: (Same Conklin 00 as:Trandat e, Normodyne) Lisinopril No Notes: Memor ia 5-25 (Same as: l 20:55: Prinivil, Jesús 00 Zestril) carvedilol No 12.5 mg, Mem oria 12.5 mg 5-25 PO, Q12H, l oral tablet 16:55: # 60 tab, H ermann 00 0 Refill(s), [facility]: [id number] carvedilol No 12.5 mg, Mem oria 12.5 mg 5-25 PO, Q12H, l oral tablet 16:55: # 60 tab, H ermann 00 0 Refill(s), Pharmacy: [facility] #[id number] Lovenox No Notes: Memoria 5-24 (Same as: l 22:00: Lovenox) Jesús 00 pharmacy re-entry for dosing time adjustment Lovenox No Notes: Memoria 5-24 (Same as: l 22:00: Lovenox) Jesús 00 pharmacy re-entry for dosing time adjustment Trazodone 2017- No Notes: Memori a 5-24 (Same As: l 02:00: Desyrel) Trazodone No Notes: Memori a 5-24 (Same As: l 02:00: Desyrel) Streptococc No Notes: Hossein diana us 5-23 Shake well l pneumoniae 21:23: prior to Her [place]ckee serotype 1 25 use (Same capsular as: antigen Prevnar diphtheria 13) [id number] protein conjugate vaccine / Streptococc us pneumoniae serotype 14 capsular antigen diphtheria [id number] protein conjugate vaccine / Streptococc us pneumoniae serotype 18C capsular antigen d Streptococc No Notes: Hossein diana us 5-23 Shake well l pneumoniae 21:23: prior to Her [place] serotype 1 25 use (Same capsular as: antigen Prevnar diphtheria 13) [id number] protein conjugate vaccine / Streptococc us pneumoniae serotype 14 capsular antigen diphtheria [id number] protein conjugate vaccine / Streptococc us pneumoniae serotype 18C capsular antigen d Omnipaque No 45 Memoria 350 5-23 mL/min, l injectable 17:01: STAT, Kishore n solution 00 Start date: 11/16/17 12:01:00 CDT, Duration: 1 doses or times Omnipaque No 45 Memoria 350 5-23 mL/min, l injectable 17:01: STAT, Kishore n solution 00 Start date: 11/16/17 12:01:00 CDT, Duration: 1 doses or times Lovenox No Notes: Memoria 5-22 (Same as: l 22:00: Lovenox) [place] 00 pharmacy re-entry for dosing time adjustment Lovenox No Notes: Memoria 5-22 (Same as: l 22:00: Lovenox) [place] 00 pharmacy re-entry for dosing time adjustment pantoprazol No Notes: Hossein diana e 5-22 Tablet l 21:30: should not Jesús 00 be chewed or crushed. (Same as: Protonix) pantoprazol No Notes: Hossein diana e 5-22 Tablet l 21:30: should not Jesús 00 be chewed or crushed. (Same as: Protonix) Lasix No Notes: Memoria 5-22 (Same as: l 14:40: Lasix) Jesús 00 MEDICATION WASTE Product Size: 40 mg Product Wasted: ___ mg Lasix No Notes: Memoria 5-22 (Same as: l 14:40: Lasix) Jesús 00 MEDICATION WASTE Product Size: 40 mg Product Wasted: ___ mg Vitamin B12 2017- No 2,500 Memor ia 5-22 microgram, l 14:00: Route: SL, Drug form: TAB, Daily, Dosing Weight 61.818, kg, Start date: 11/15/17 9:00:00 CDT, Duration: 30 day, Stop date: 12/14/17 9:00:00 CDT celecoxib No Notes: Memori a 5-22 NSAID. l 14:00: Please Jesús 00 check indication . Not for seizure. (Same As: CeleBREX) Aspirin No Notes: Memoria 5-22 Take with l 14:00: food. Vitamin B12 No 2,500 Memor ia 5-22 microgram, l 14:00: Route: Drug form: TAB, Daily, Dosing Weight 61.818, kg, Start date: 11/15/17 9:00:00 CDT, Duration: 30 day, Stop date: 12/14/17 9:00:00 CDT celecoxib No Notes: Memori a 5-22 NSAID. l 14:00: Please [place] 00 check indication . Not for seizure. (Same As: CeleBREX) Aspirin No Notes: Memoria 5-22 Take with l 14:00: food. Jesús 00 Thyroxine No Notes: Memori a 5-22 Take 1 l 11:30: hour [place] 00 before or 2 hours after meal; Enteral feeds may interefere with the absorption of this medication .(Same as:Levothr oid, Synthroid) Thyroxine No Notes: Memori a 5-22 Take 1 l 11:30: hour Jesús 00 before or 2 hours after meal; Enteral feeds may interefere with the absorption of this medication .(Same as:Levothr oid, Synthroid) Phenergan No Notes: Do Mem oria 5-22 not give l 07:25: IV push. Jesús (Same as: Phenergan) Phenergan No Notes: Do Mem oria 5-22 not give l 07:25: IV push. [place] 00 (Same as: Phenergan) Albuterol No Notes: Memori a 0.833 MG/ML 5-22 (Same as: 07:00: Duoneb) [place] Ipratropium 00 [place] 0.167 MG/ML Inhalant Solution [DuoNeb] Albuterol No Notes: Memori a 0.833 MG/ML 5-22 (Same as: 07:00: Duoneb) Jesús Ipratropium 00 [place] 0.167 MG/ML Inhalant Solution [DuoNeb] cefuroxime No Notes: Memor ia + sterile 5-22 (Same As: l water 20 mL 06:00: [facility] Zinacef) MEDICATION WASTE Product Size: 1500 mg Product Wasted: _0__ mg cefuroxime No Notes: Memor ia + sterile 5-22 (Same As: l water 20 mL 06:00: [facility] Zinacef) MEDICATION WASTE Product Size: 1500 mg Product Wasted: _0__ mg ocular No Notes: Memoria lubricant 5-22 (Same as: l 05:00: Lacri-Lube [place] 00 , Duratears Naturale, Artificial Tears, and Tears Again ) ocular No Notes: Memoria lubricant 5-22 (Same as: l 05:00: Lacri-Lube Jesús 00 , Duratears Naturale, Artificial Tears, and Tears Again ) Norepinephr No Notes: Hossein diana ine - Same as: l 02:27: Levophed. Administer by either central venous catheter or peripheral ly-inserte d central catheter (PICC) line. Concentrat ion: 0.032 mg / mL Norepinephr No Notes: Hossein diana ine -22 Same as: l 02:27: Levophed. Jesús 00 Administer by either central venous catheter or peripheral ly-inserte d central catheter (PICC) line. Concentrat ion: 0.032 mg / mL famotidine No Notes: Memor ia 5-22 (Same as: l 02:00: Pepcid) Jesús 00 Can be dilute in 5-10cc NS IVP: Slow IV push over at least 2 minutes. chlorhexidi No Notes: Hossein diana ne 5-22 (Same As: l gluconate 02:00: Peridex) Herm karina 1.2 MG/ML 00 Mouthwash Famotidine No 20 mg, Memor ia 5-22 Route: l 02:00: IVP, Q12H, [place] 00 Dosing Weight 61.818, kg, Start date: 11/14/17 21:00:00 CDT, Duration: 30 day, Stop date: 12/14/17 9:00:00 CDT Saline No Notes: Memoria Flush 0.9% 5-22 (Same as: l 02:00: BD Jesús 00 Posiflush) Labetalol No Notes: Memori a 5-22 With food. l 02:00: (Same [place] 00 as:Trandat e, Normodyne) Simvastatin No Notes: Hossein diana 5-22 (Same as: l 02:00: Zocor) Jesús famotidine No Notes: Memor ia 5-22 (Same as: l 02:00: Pepcid) [place] 00 Can be dilute in 5-10cc NS IVP: Slow IV push over at least 2 minutes. chlorhexidi No Notes: Hossein diana ne 5-22 (Same As: l gluconate 02:00: Peridex) Herm karina 1.2 MG/ML 00 Mouthwash Famotidine No 20 mg, Memor ia 5-22 Route: l 02:00: IVP, Q12H, [place] 00 Dosing Weight 61.818, kg, Start date: 11/14/17 21:00:00 CDT, Duration: 30 day, Stop date: 12/14/17 9:00:00 CDT Saline No Notes: Memoria Flush 0.9% 5-22 (Same as: l 02:00: BD [place] 00 Posiflush) Labetalol No Notes: Memori a 11-15 With food. l 02:00: (Same [place] 00 as:Trandat e, Normodyne) Simvastatin No Notes: Hossein diana 11-15 (Same as: l 02:00: Zocor) glucagon 2017-0 No 1 mg, Memoria 11-15 Route: l 01:29: INJ, Drug [place] 00 form: PDR/INJ, PRN, PRN Blood Glucose Results, Start date: 11/14/17 20:29:00 CDT, Duration: 30 day, Stop date: 12/14/17 20:28:00 CDT glucagon No 1 mg, Memoria 11-15 Route: l 01:29: INJ, Drug form: PDR/INJ, PRN, PRN Blood Glucose Results, Start date: 11/14/17 20:29:00 CDT, Duration: 30 day, Stop date: 12/14/17 20:28:00 CDT Dextrose No 50 mL, Memoria 50% in 11-15 Route: l Water IV 01:28: IVP, Start Her mckee date: 11/14/17 20:28:00 CDT, Duration: 30 day, Stop date: 12/14/17 20:27:00 CDT, PRN Blood Glucose Results Humalog No Notes: Memoria 11-15 (Same as: l :: Humalog ) Roll in palms of hands gently; Do not shake `vigorousl y. "Single Patient Use Only " WASTE: F/P - Black; E - Municipal Trash Bin Stable for 28 days at room temperatur e. Expires in days from ____Date Dextrose 0 No 50 mL, Memoria 50% in 11-15 Route: l Water IV 01:28: IVP, Start Her mckee 00 date: 11/14/17 20:28:00 CDT, Duration: 30 day, Stop date: 12/14/17 20:27:00 CDT, PRN Blood Glucose Results Humalog No Notes: Memoria 5-22 (Same as: l :: Humalog ) [place] 00 Roll in palms of hands gently; Do not shake `vigorousl y. "Single Patient Use Only " WASTE: F/P - Black; E - Municipal Trash Bin Stable for 28 days at room temperatur e. Expires in days from ____Date Humalog No Notes: Memoria 5-22 (Same as: l : Humalog ) [place] 00 Roll in palms of hands gently; Do not shake `vigorousl y. "Single Patient Use Only " WASTE: F/P - Black; E - Municipal Trash Bin Stable for 28 days at room temperatur e. Expires in days from ____Date Humalog No Notes: Memoria 5- (Same as: l : Humalog ) [place] 00 Roll in palms of hands gently; Do not shake `vigorousl y. "Single Patient Use Only " WASTE: F/P - Black; E - Municipal Trash Bin Stable for 28 days at room temperatur e. Expires in days from ____Date chlorhexidi No Notes: Hossein diana ne - (Same As: l gluconate 01:10: Peridex) Herm karina 1.2 MG/ML 00 Mouthwash Potassium No Notes: Memori a Chloride -22 (Same as: l 01:10: Potassium Jesús Chloride) potassium No Notes: Memori a phosphate 5-22 (Same as: l 01:10: K [place] Phosphate. ) 1 mMol phoshate has 1.47 mEq potassium Infuse over 4 hours sodium No 30 mmol, Memoria phosphate 5-22 10 mL, l 01:10: Route: Jesús 00 IVPB, PRN, Dosing Weight 61.818, kg, PRN Abnormal Lab Result, Start date: 11/14/17 20:10:00 CDT, Duration: 30 day, Stop date: 12/14/17 20:09:00 CDT, FOR ICU USE ONLY Calcium No Notes: Memoria Carbonate 11-15 (Same As: l 500 MG 01:10: Tums) [place] Chewable 00 Calcium Tablet Carbonate 500 mg = 200 mg elemental calcium Dose = mg calcium carbonate ( mg elemental calcium) Magnesium No Notes: Memori a Oxide 11-15 (Same as: l 01:10: Mag-Ox Jesús 00 400) Magnesium oxide [id number] g elemental magnesium Dose=____m g magnesium oxide (___mg elemental magnesium) Calcium No Notes: Memoria Gluconate 11-15 WASTE: F/P l 01:10: - Sink; E [place] - Municipal Trash Bin Magnesium No Notes: Memori a Sulfate 11-15 WASTE: F/P l 01:10: - Sink; E [place] - Municipal Trash Bin potassium No Notes: Memori a phosphate-s 11-15 (Same as: l odium 01:10: Phos-NaK) Jesús phosphate 00 Each 1.5 250 mg-280 gm pkt has mg-160 mg 250mg oral powder phosphorou for s. Mix reconstitut w/2.5oz ion water and stir. Fentanyl No Notes: Memoria 11-15 Concentrat l 01:10: ion: 5 Jesús 00 microgram / ml Saline No Notes: Memoria Flush 0.9% 11-15 (Same as: l 01:10: BD Jesús 00 Posiflush) chlorhexidi No Notes: Hossein diana ne 11-15 (Same As: l gluconate 01:10: Peridex) Herm karina 1.2 MG/ML 00 Mouthwash Potassium No Notes: Memori a Chloride 11-15 (Same as: l 01:10: Potassium Jesús 00 Chloride) potassium No Notes: Memori a phosphate 11-15 (Same as: l 01:10: K Jesús 00 Phosphate. ) 1 mMol phoshate has 1.47 mEq potassium Infuse over 4 hours sodium No 30 mmol, Memoria phosphate 5-22 10 mL, l 01:10: Route: [place] 00 IVPB, PRN, Dosing Weight 61.818, kg, PRN Abnormal Lab Result, Start date: 11/14/17 20:10:00 CDT, Duration: 30 day, Stop date: 12/14/17 20:09:00 CDT, FOR ICU USE ONLY Calcium No Notes: Memoria Carbonate 11-15 (Same As: l 500 MG 01:10: Tums) [place] Chewable 00 Calcium Tablet Carbonate 500 mg = 200 mg elemental calcium Dose = mg calcium carbonate ( mg elemental calcium) Magnesium No Notes: Memori a Oxide 11-15 (Same as: l 01:10: Mag-Ox [place] 00 400) Magnesium oxide 213on=537d g elemental magnesium Dose=____m g magnesium oxide (___mg elemental magnesium) Calcium No Notes: Memoria Gluconate 11-15 WASTE: F/P l 01:10: - Sink; E Jesús 00 - Municipal Trash Bin Magnesium No Notes: Memori a Sulfate 11-15 WASTE: F/P l 01:10: - Sink; E - Municipal Trash Bin potassium No Notes: Memori a phosphate-s 11-15 (Same as: l odium 01:10: Phos-NaK) phosphate 00 Each 1.5 250 mg-280 gm pkt has mg-160 mg 250mg oral powder phosphorou for s. Mix reconstitut w/2.5oz ion water and stir. Fentanyl No Notes: Memoria -22 Concentrat l 01:10: ion: 5 [place] 00 microgram / ml Saline No Notes: Memoria Flush 0.9% 11-15 (Same as: l 01:10: BD Jesús 00 Posiflush) sodium No Route: IV, Memor ia bicarbonate 11-15 Drug form: l (ANES) 01:02: INJ, ONCE, Lilian nn Stop date: 11/14/17 20:02:00 CDT calcium No Route: IV, Hossein diana chloride 11-15 Drug form: l (ANES) 01:02: INJ, ONCE, Lilian nn Stop date: 11/14/17 20:02:00 CDT rocuronium No Route: IV, M emoria (ANES) 11-15 Drug form: l 01:02: INJ, ONCE, Jesús 00 Stop date: 11/14/17 20:02:00 CDT midazolam 0 No Route: IV, Me moria (ANES) - Drug form: l 01:02: SOLN, ONCE, Stop date: 11/14/17 20:02:00 CDT fentaNYL 0 No Route: IV, Mem oria (ANES) 11-15 Drug form: l 01:02: INJ, ONCE, Stop date: 11/14/17 20:02:00 CDT sodium No Route: IV, Memor ia bicarbonate 11-15 Drug form: l (ANES) 01:02: INJ, ONCE, Lilian Stop date: 11/14/17 20:02:00 CDT calcium No Route: IV, Hossein diana chloride 11-15 Drug form: l (ANES) 01:02: INJ, ONCE, Lilian Stop date: 11/14/17 20:02:00 CDT rocuronium 0 No Route: IV, M emoria (ANES) 11-15 Drug form: l 01:02: INJ, ONCE, Stop date: 11/14/17 20:02:00 CDT midazolam 0 No Route: IV, Me moria (ANES) - Drug form: l 01:02: SOLN ONCE, Stop date: 11/14/17 20:02:00 CDT fentaNYL 0 No Route: IV, Mem oria (ANES) 11-15 Drug form: l 01:02: INJ, ONCE, Stop date: 11/14/17 20:02:00 CDT protamine 0 No Route: IV, Me moria (ANES) 10 11-14 Drug form: l mg 23:55: INJ, Start date: 11/14/17 18:55:00 CDT, Stop date: 11/14/17 19:55:00 CDT protamine 2017-0 No Route: IV, Me moria (ANES) 10 11-14 Drug form: l mg 23:55: INJ, Start date: 11/14/17 18:55:00 CDT, Stop date: 11/14/17 19:55:00 CDT heparin No Route: IV, Hossein diana (ANES) 5- Drug form: l 23:08: INJ, ONCE, [place] Stop date: 11/14/17 18:08:00 CDT heparin No Route: IV, Hossein diana (ANES) 5 Drug form: l 23:08: INJ, ONCE, Jesús Stop date: 11/14/17 18:08:00 CDT cefuroxime No Route: IV, M emoria (ANES) + 5-21 Drug form: l sterile 22:33: INJ, ONCE, Herm karina water Stop date: (ANES) 10 11/14/17 mL 17:33:00 CDT cefuroxime No Route: IV, M emoria (ANES) + 5-21 Drug form: l sterile 22:33: INJ, ONCE, Herm karina water Stop date: (ANES) 10 11/14/17 mL 17:33:00 CDT DOPamine No Route: IV, Mem oria (ANES) 3.2 5-21 Drug form: l mg 22:14: INJ, Start date: 11/14/17 17:14:00 CDT, Stop date: 11/14/17 18:14:00 CDT DOPamine No Route: IV, Mem oria (ANES) 3.2 5-21 Drug form: l mg 22:14: INJ, Start date: 11/14/17 17:14:00 CDT, Stop date: 11/14/17 18:14:00 CDT Enoxaparin 0 No 40 mg, Memor ia 11-14 Route: l 22:00: SUB-Q, Drug form: INJ, [id number], Dosing Weight 61.818, kg, Start date: 11/14/17 17:00:00 CDT, Stop date: 12/13/17 17:00:00 CDT Dipyridamol 0 No 75 mg, Hossein diana e 11-14 Route: PO, l 22:00: Drug form: [place] 00 TAB, BID, Dosing Weight 61.818, kg, Start date: 11/14/17 17:00:00 CDT, Duration: 30 day, Stop date: 12/14/17 9:00:00 CDT cilostazol 0 No Notes: Memor ia 5-21 Non-Formul l 22:00: david Drug. (Same As: Pletal) Vitamin C No Route: PO, Me moria 5-21 BID, l 22:00: Dosing Weight 61.818, kg, Start date: 11/14/17 17:00:00 CDT, Duration: 30 day, Stop date: 12/14/17 9:00:00 CDT Docusate No Notes: Memoria Sodium 100 -21 (Same as: l MG Oral 22:00: Colace) Jesús Capsule (Do Not Crush) Fish Oil No Route: PO, Mem oria 5-21 BID, l 22:00: Dosing Weight 61.818, kg, Start date: 11/14/17 17:00:00 CDT, Duration: 30 day, Stop date: 12/14/17 9:00:00 CDT Enoxaparin No 40 mg, Memor ia 5-21 Route: l 22:00: SUB-Q, Drug form: INJ, [id number], Dosing Weight 61.818, kg, Start date: 11/14/17 17:00:00 CDT, Stop date: 12/13/17 17:00:00 CDT Dipyridamol No 75 mg, Hossein diana e -21 Route: PO, l 22:00: Drug form: TAB, BID, Dosing Weight 61.818, kg, Start date: 11/14/17 17:00:00 CDT, Duration: 30 day, Stop date: 12/14/17 9:00:00 CDT cilostazol No Notes: Memor ia 5-21 Non-Formul l 22:00: david Drug. (Same As: Pletal) Vitamin C No Route: PO, Me moria 5-21 BID, l 22:00: Dosing Weight 61.818, kg, Start date: 11/14/17 17:00:00 CDT, Duration: 30 day, Stop date: 12/14/17 9:00:00 CDT Docusate 2017- No Notes: Memoria Sodium 100 5-21 (Same as: l MG Oral 22:00: Colace) Jesús Capsule (Do Not Crush) Fish Oil No Route: PO, Mem oria 5-21 BID, l 22:00: Dosing Jesús 00 Weight 61.818, kg, Start date: 11/14/17 17:00:00 CDT, Duration: 30 day, Stop date: 12/14/17 9:00:00 CDT norepinephr No Route: IV, Memoria ine (ANES) 5-21 Drug form: l 32 21:53: INJ, Start Jesús microgram date: 11/14/17 16:53:00 CDT, Stop date: 11/14/17 17:53:00 CDT norepinephr No Route: IV, Memoria ine (ANES) 5-21 Drug form: l 32 21:53: INJ, Start [place] microgram date: 11/14/17 16:53:00 CDT, Stop date: 11/14/17 17:53:00 CDT midazolam No Route: IV, Me moria (ANES) 5-21 Drug form: l 21:52: SOLN, Jesús ONCE, Stop date: 11/14/17 16:52:00 CDT lidocaine 2017-0 No Route: IV, Me moria (ANES) 5-21 Drug form: l 21:52: INJ, ONCE, Jesús Stop date: 11/14/17 16:52:00 CDT fentaNYL 2017-0 No Route: IV, Mem oria (ANES) 5-21 Drug form: l 21:52: INJ, ONCE, [place] Stop date: 11/14/17 16:52:00 CDT rocuronium 2017- No Route: IV, M emoria (ANES) 5-21 Drug form: l 21:52: INJ, ONCE, [place] 00 Stop date: 11/14/17 16:52:00 CDT Amidate No Route: IV, Hossein diana (ANES) 5-21 Drug form: l 21:52: INJ, ONCE, Jesús 00 Stop date: 11/14/17 16:52:00 CDT midazolam 2018-0 No Route: IV, Me moria (ANES) 5-21 Drug form: l 21:52: SOLN, 00 ONCE, Stop date: 11/14/17 16:52:00 CDT lidocaine 2017-0 No Route: IV, Me moria (ANES) 5-21 Drug form: l 21:52: INJ, ONCE, Stop date: 11/14/17 16:52:00 CDT fentaNYL 2017- No Route: IV, Mem oria (ANES) 5-21 Drug form: l 21:52: INJ, ONCE, Stop date: 11/14/17 16:52:00 CDT rocuronium 2017- No Route: IV, M emoria (ANES) 5-21 Drug form: l 21:52: INJ, ONCE, Stop date: 11/14/17 16:52:00 CDT Amidate No Route: IV, Hossein diana (ANES) 5-21 Drug form: l 21:52: INJ, ONCE, Stop date: 11/14/17 16:52:00 CDT Saline No Notes: Memoria Flush 0.9% 5-21 (Same as: l 21:49: BD Posiflush) POLYETHYLEN No Notes: Hossein diana E GLYCOL 5-21 Dissolve l 3350 21:49: in 8 oz of water or juice. (Same as: Miralax) Dulcolax No Notes: Memoria Laxative 5-21 (Same As: l 21:49: Dulcolax, Correctol) (Do Not Crush) "Do Not Crush" Ondansetron No Notes: Hossein diana 5-21 (Same as: l 21:49: Zofran) MEDICATION WASTE Product Size: 4 mg Product Wasted: __0_ mg Acetaminoph No Notes: Do M emoria en 5-21 not exceed l 21:49: 4 gm/day. (Same as: Tylenol) Morphine No Notes: Memoria 5-21 (Same l 21:49: as:MORPhin [place] 00 e Sulfate) Acetaminoph No Notes: Hossein diana en 325 MG / 5-21 (Same as: l Hydrocodone 21:49: Bard Lilian nn Bitartrate 00 325/5) Do 5 MG Oral not exceed Tablet 4gm/day of acetaminop hen. acetaminoph No Notes: Do M emoria en-codeine 5-21 not exceed l #3 21:49: 4gm/day of Jesús acetaminop hen. (Same as: Tylenol with Codeine # 3) Saline No Notes: Memoria Flush 0.9% 5-21 (Same as: l 21:49: BD Jesús 00 Posiflush) POLYETHYLEN No Notes: Hossein diana E GLYCOL 5-21 Dissolve l 3350 21:49: in 8 oz of [place] 00 water or juice. (Same as: Miralax) Dulcolax No Notes: Memoria Laxative 5-21 (Same As: l 21:49: Dulcolax, Jesús 00 Correctol) (Do Not Crush) "Do Not Crush" Ondansetron No Notes: Hossein diana 5-21 (Same as: l 21:49: Zofran) [place] 00 MEDICATION WASTE Product Size: 4 mg Product Wasted: __0_ mg Acetaminoph No Notes: Do M emoria en 5-21 not exceed l 21:49: 4 gm/day. Jesús 00 (Same as: Tylenol) Morphine No Notes: Memoria 5-21 (Same l 21:49: as:MORPhin [place] 00 e Sulfate) Acetaminoph No Notes: Hossein diana en 325 MG / 5-21 (Same as: l Hydrocodone 21:49: Bard Lilian nn Bitartrate 00 325/5) Do 5 MG Oral not exceed Tablet 4gm/day of acetaminop hen. acetaminoph No Notes: Do M emoria en-codeine 5-21 not exceed l #3 21:49: 4gm/day of Jesús 00 acetaminop hen. (Same as: Tylenol with Codeine # 3) Isolyte S No Route: IV, Me moria PH 7.4 5-21 Total l (ANES) 1000 21:15: Volume: Her cmkee mL 00 1,000, Start date: 11/14/17 16:15:00 CDT, Stop date: 11/14/17 17:15:00 CDT Isolyte S 2018-0 No Route: IV, Me moria PH 7.4 5-21 Total l (ANES) 1000 21:15: Volume: Her mckee mL 00 1,000, Start date: 11/14/17 16:15:00 CDT, Stop date: 11/14/17 17:15:00 CDT DOPamine No Route: IV, Mem oria (ANES) 3.2 5-21 Drug form: l mg 21:08: INJ, Start date: 11/14/17 16:08:00 CDT, Stop date: 11/14/17 17:08:00 CDT DOPamine No Route: IV, Mem oria (ANES) 3.2 5-21 Drug form: l mg 21:08: INJ, Start date: 11/14/17 16:08:00 CDT, Stop date: 11/14/17 17:08:00 CDT Dopamine No Notes: Memoria 5-21 (Same as: l 20:57: Intropin) Administer by either central venous catheter or peripheral ly-inserte d central catheter (PICC) line. Final conc = 3.2 mg/ml. Premix solution. Dopamine No Notes: Memoria 5-21 (Same as: l 20:57: Intropin) Administer by either central venous catheter or peripheral ly-inserte d central catheter (PICC) line. Final conc = 3.2 mg/ml. Premix solution. Sodium 2018- No 250 mL, Memoria Chloride 5-21 Route: l 0.9% IV 19:58: IVPB Start date: 11/14/17 14:58:00 CDT, Duration: 30 day, Stop date: 12/14/17 14:57:00 CDT, PRN Line Flush BD Normal No Notes: Memori a Saline 5-21 (Same as: l Flush 19:58: BD Jesús 00 Posiflush) Sodium No 250 mL, Memoria Chloride 5-21 Route: l 0.9% IV 19:58: IVPB, [place] 00 Start date: 11/14/17 14:58:00 CDT, Duration: 30 day, Stop date: 12/14/17 14:57:00 CDT, PRN Line Flush BD Normal No Notes: Memori a Saline 5-21 (Same as: l Flush 19:58: BD Jesús 00 Posiflush) Sodium No 750 mL, Memoria Chloride 5-21 Rate: 75 l 0.9% IV 750 18:02: ml/hr, Herm karina mL 00 Infuse over: 10 hr, Route: IV, Dosing Weight 61.818 kg, Total Volume: 750, Start date: 11/14/17 13:02:00 CDT, Duration: 10 hr, Stop date: 11/14/17 23:01:00 CDT, 1.63, m2 Ondansetron No Notes: Hossein diana 5-21 (Same as: l 18:02: Zofran) MEDICATION WASTE Product Size: 4 mg Product Wasted: _0__ mg Acetaminoph No Notes: Do M emoria en 5-21 not exceed l 18:02: 4 gm/day. (Same as: Tylenol) acetaminoph No Notes: Do M emoria en-codeine 5-21 not exceed l #3 18:02: 4gm/day of acetaminop hen. (Same as: Tylenol with Codeine # 3) Morphine No Notes: Memoria 5-21 (Same l 18:02: as:MORPhin e Sulfate) Sodium No 750 mL, Memoria Chloride 5-21 Rate: 75 l 0.9% IV 750 18:02: ml/hr, Herm karina mL 00 Infuse over: 10 hr, Route: IV, Dosing Weight 61.818 kg, Total Volume: 750, Start date: 11/14/17 13:02:00 CDT, Duration: 10 hr, Stop date: 11/14/17 23:01:00 CDT, 1.63, m2 Ondansetron No Notes: Hossein diana 5-21 (Same as: l 18:02: Zofran) MEDICATION WASTE Product Size: 4 mg Product Wasted: _0__ mg Acetaminoph No Notes: Do M emoria en 5-21 not exceed l 18:02: 4 gm/day. (Same as: Tylenol) acetaminoph No Notes: Do M emoria en-codeine 5-21 not exceed l #3 18:02: 4gm/day of acetaminop hen. (Same as: Tylenol with Codeine # 3) Morphine No Notes: Memoria 5-21 (Same l 18:02: as:MORPhin e Sulfate) Sodium No 1,000 mL, Memori a Chloride 5-21 Rate: 100 l 0.9% IV 15:20: ml/hr, [place] 1,000 mL 00 Infuse over: 10 hr, Route: IV, Dosing Weight 61.818 kg, Total Volume: 1,000, Start date: 11/14/17 10:20:00 CDT, Duration: 30 day, Stop date: 12/14/17 10:19:00 CDT, 1.63, m2 Sodium No 1,000 mL, Memori a Chloride 5-21 Rate: 100 l 0.9% IV 15:20: ml/hr, Jesús 1,000 mL 00 Infuse over: 10 hr, Route: IV, Dosing Weight 61.818 kg, Total Volume: 1,000, Start date: 11/14/17 10:20:00 CDT, Duration: 30 day, Stop date: 12/14/17 10:19:00 CDT, 1.63, m2 Vitamin B12 Yes 2,500 Memor ia 2500 mcg 5-21 microgram l sublingual 14:55: = 1 tab, Her mckee tablet 00 SL, Daily, 0 Refill(s) Vitamin B12 Yes 2,500 Memor ia 2500 mcg 5-21 microgram l sublingual 14:55: = 1 tab, Her mckee tablet 00 SL, Daily, 0 Refill(s) Lidocaine Yes 1 patch, Hossein diana 0.05 MG/MG 5-21 TOP, PRN, l Transdermal 14:54: 0 Kishore n Patch 00 Refill(s) Lidocaine Yes 1 patch, Hossein diana 0.05 MG/MG 5-21 TOP, PRN, l Transdermal 14:54: 0 Kishore n Patch 00 Refill(s) celecoxib No 200 mg = 1 Me moria 200 mg oral 5-21 cap, PO, l capsule 14:52: Daily, 0 Kishore n 00 Refill(s) celecoxib No 200 mg = 1 Me moria 200 mg oral 5-21 cap, PO, l capsule 14:52: Daily, 0 Kishore n 00 Refill(s) labetalol No 1/2 tab, Hossein diana 100 mg oral 5-21 PO, BID, 0 l tablet 14:51: Refill(s) Kishore n 00 labetalol No 1/2 tab, Hosseni diana 100 mg oral 5-21 PO, BID, 0 l tablet 14:51: Refill(s) Kishore n 00 Omnipaque No Notes: Memori a 350 5-11 (Same l injectable 17:18: as:Omnipaq H ermann solution 00 ue 300). WASTE: F/P - Black; E - Municipal Trash Bin Omnipaque No Notes: Memori a 350 5-11 (Same l injectable 17:18: as:Omnipaq H ermann solution 00 ue 300). WASTE: F/P - Black; E - Municipal Trash Bin Alendronate 0 No 70 mg, Hossein diana 8-18 Route: PO, l 14:00: Drug form: Jesús 00 EFTAB, QMon, Dosing Weight 65.909, kg, Start date: 02/11/14 9:00:00, Duration: 30 day, Stop date: 03/11/14 9:00:00 Alendronate 2013-0 No 70 mg, Hossein diana 8-18 Route: PO, l 14:00: Drug form: Jesús 00 EFTAB, QMon, Dosing Weight 65.909, kg, Start date: 02/11/14 9:00:00, Duration: 30 day, Stop date: 03/11/14 9:00:00 Fosamax 2013-0 No Notes: Memoria 8-18 Give 30 l 11:30: min before Conklin 00 breakfast w/6oz water. Sit upright for 30 min after dose. "Do Not Crush" (Same as: Fosamax) Fosamax No Notes: Memoria 8-18 Give 30 l 11:30: min before Jesús 00 breakfast w/6oz water. Sit upright for 30 min after dose. "Do Not Crush" (Same as: Fosamax) Lidocaine Yes Special Memor ia Hydrochlori 8-17 Instructio l de 0.05 13:32: ns: Remove Herm karina MG/MG 00 after 12 Transdermal hours Patch [Lidoderm] Acetaminoph Yes 1 tab, PO, Memoria en 325 MG / 8-17 Q4H, Pain l Hydrocodone 13:32: Score 4-6, Conklin Bitartrate 00 # 24 tab, 5 MG Oral 0 Tablet Refill(s) Lidocaine Yes Special Memor ia Hydrochlori 8-17 Instructio l de 0.05 13:32: ns: Remove Herm karina MG/MG 00 after 12 Transdermal hours Patch [Lidoderm] Acetaminoph Yes 1 tab, PO, Memoria en 325 MG / 8-17 Q4H, Pain l Hydrocodone 13:32: Score 4-6, Conklin Bitartrate 00 # 24 tab, 5 MG Oral 0 Tablet Refill(s) Magnesium No 2 gm, 50 Hossein diana Sulfate 8-17 mL, Route: l 12:59: IVPB, Drug form: INJ, ONCE, Dosing Weight 65.909, kg, Start date: 02/10/14 7:59:00, Duration: 2 hr, Stop date: 02/10/14 7:59:00 Magnesium No 2 gm, 50 Hossein diana Sulfate 8-17 mL, Route: l 12:59: IVPB, Drug form: INJ, ONCE, Dosing Weight 65.909, kg, Start date: 02/10/14 7:59:00, Duration: 2 hr, Stop date: 02/10/14 7:59:00 Atenolol 50 No Notes: Hossein diana MG Oral 8-16 (Same l Tablet 14:07: As:Tenormi Lilian nn 00 n) Lisinopril No Notes: Memor ia 8-16 (Same as: l 14:07: Prinivil, Jesús 00 Zestril) Atenolol 50 No Notes: Hossein diana MG Oral 8-16 (Same l Tablet 14:07: As:Tenormi Lilian nn 00 n) Lisinopril No Notes: Memor ia 8-16 (Same as: l 14:07: Prinivil, Conklin 00 Zestril) Lidocaine No Notes: Memori a Hydrochlori 8-15 Apply only l de 0.05 20:00: once for Kishore n MG/MG 00 up to 12 Transdermal hours in a Patch 24-hour [Lidoderm] period (12 hours on and 12 hours off). (Same as: Lidoderm) "Remove old patch before applicatio n of new patch" Lidocaine No Notes: Memori a Hydrochlori 8-15 Apply only l de 0.05 20:00: once for Kishore n MG/MG 00 up to 12 Transdermal hours in a Patch 24-hour [Lidoderm] period (12 hours on and 12 hours off). (Same as: Lidoderm) "Remove old patch before applicatio n of new patch" Sodium No 250 mL, Memoria Chloride 8-14 Route: l 0.9% IV 21:19: IVPB, Jesús 00 Start date: 02/07/14 16:19:00, Duration: 30 day, Stop date: 03/09/14 16:18:00, PRN Line Flush BD Normal No Notes: Memori a Saline 8-14 (Same as: l Flush 21:19: BD Conklin 00 Posiflush) Sodium No 250 mL, Memoria Chloride 8-14 Route: l 0.9% IV 21:19: IVPB, Conklin 00 Start date: 02/07/14 16:19:00, Duration: 30 day, Stop date: 03/09/14 16:18:00, PRN Line Flush BD Normal No Notes: Memori a Saline 8-14 (Same as: l Flush 21:19: BD Jesús 00 Posiflush) Flexeril No Notes: Memoria 8-14 (Same As: l 21:12: Flexeril) Jesús Flexeril No Notes: Memoria 8-14 (Same As: l 21:12: Flexeril) Enoxaparin No Notes: Memor ia 8-14 (Same as: l 17:00: Lovenox) Jesús 00 Enoxaparin No Notes: Memor ia 8-14 (Same as: l 17:00: Lovenox) Jessú Sodium No 500 mL, Memoria Chloride 8-14 500 ml/hr, l 0.154 16:06: Infuse Conklin MEQ/ML 00 Over: 1 Injectable hr, Route: Solution IV, 500, Drug form: INJ, ONCE, Priority: STAT, Dosing Weight 65.909 kg, Start date: 02/07/14 11:06:00, Duration: 1 doses or times, Stop date: 02/07/14 11:06:00 Sodium No 500 mL, Memoria Chloride 8-14 500 ml/hr, l 0.154 16:06: Infuse Jesús MEQ/ML 00 Over: 1 Injectable hr, Route: Solution IV, 500, Drug form: INJ, ONCE, Priority: STAT, Dosing Weight 65.909 kg, Start date: 02/07/14 11:06:00, Duration: 1 doses or times, Stop date: 02/07/14 11:06:00 Ketorolac No 4 days Memor ia 8-14 l 16:03: Jesús 00 Ketorolac No 4 days Memor ia 8-14 l 16:03: Conklin 00 Ascorbic No Notes: Memoria Acid / 8-14 (Same as: maryuri ROLON'S 14:00: Vitamin C) He rmann BROOM 00 Preparation / Diosmin / Hesperidin Aspirin / No Notes: Do Mem oria Calcium -14 not crush l Carbonate 14:00: or chew. Herm karina 00 (Same As: Ecotrin) Thyroxine No Notes: Memori a 8-14 Take 1 l 14:00: hour Jesús 00 before or 2 hours after meal; Enteral feeds may interefere with the absorption of this medication .(Same as:Levothr oid, Synthroid) Ascorbic No Notes: Memoria Acid / 14 (Same as: l LEATHER STRETCHER'S 14:00: Vitamin C) He rmann BROOM 00 Preparation / Diosmin / Hesperidin Aspirin / No Notes: Do Mem oria Calcium 8-14 not crush l Carbonate 14:00: or chew. Herm karina 00 (Same As: Ecotrin) Thyroxine No Notes: Memori a 8-14 Take 1 l 14:00: hour Jesús 00 before or 2 hours after meal; Enteral feeds may interefere with the absorption of this medication .(Same as:Levothr oid, Synthroid) Protonix No Notes: For Mem oria 8-14 IV push l 12:30: reconstitu Jesús 00 te with 10 ml 0.9% sodium chloride and push over 2 minutes. (Same as: Protonix) pantoprazol No Notes: Hossein diana e 8-14 Tablet l 12:30: should not Conklin 00 be chewed or crushed. (Same as: Protonix) Protonix No Notes: For Mem oria 8-14 IV push l 12:30: reconstitu Jesús 00 te with 10 ml 0.9% sodium chloride and push over 2 minutes. (Same as: Protonix) pantoprazol No Notes: Hossein diana e 8-14 Tablet l 12:30: should not Conklin 00 be chewed or crushed. (Same as: Protonix) Magnesium 2013- No 2 gm, 50 Hossein diana Sulfate 8-14 mL, Route: l 10:48: IVPB, Drug Jesús 00 form: INJ, ONCE, Dosing Weight 65.909, kg, Start date: 02/07/14 5:48:00, Duration: 2 hr, Stop date: 02/07/14 5:48:00 Magnesium 2013-0 No 2 gm, 50 Hossein diana Sulfate 8-14 mL, Route: l 10:48: IVPB, Drug Jesús 00 form: INJ, ONCE, Dosing Weight 65.909, kg, Start date: 02/07/14 5:48:00, Duration: 2 hr, Stop date: 02/07/14 5:48:00 Magnesium 2013-0 No 2 gm, 50 Hossein diana Sulfate 8-14 mL, Route: l 10:47: IVPB, Drug Conklin 00 form: INJ, ONCE, Dosing Weight 65.909, kg, Start date: 02/07/14 5:47:00, Duration: 2 hr, Stop date: 02/07/14 5:47:00 Magnesium 2013- No 2 gm, 50 Hossein diana Sulfate 8-14 mL, Route: l 10:47: IVPB, Drug form: INJ, ONCE, Dosing Weight 65.909, kg, Start date: 02/07/14 5:47:00, Duration: 2 hr, Stop date: 02/07/14 5:47:00 Hydralazine No Notes: Hossein diana 8-14 (Same as: l 04:27: Apresoline Conklin 00 ) Push over 5 minutes Hydralazine No Notes: Hossein diana 8-14 (Same as: l 04:27: Apresoline Conklin 00 ) Push over 5 minutes Phenergan No 12.5 mg, Hossein diana 8-14 Route: l 04:21: IVPB, Conklin 00 ONCE, Dosing Weight 65.909, kg, PRN Nausea & Vomiting, Start date: 02/06/14 23:21:00, Stop date: 03/08/14 23:20:00 Phenergan 2013- No 12.5 mg, Hossein diana 8-14 Route: l 04:21: IVPB, Jesús 00 ONCE, Dosing Weight 65.909, kg, PRN Nausea & Vomiting, Start date: 02/06/14 23:21:00, Stop date: 03/08/14 23:20:00 Zinacef + No Notes: Memori a Sodium 8-14 (Same As: l Chloride 02:11: Kefurox, Lilian nn 0.9% IV 100 00 Zinacef) mL Zinacef + No Notes: Memori a Sodium 8-14 (Same As: l Chloride 02:11: Kefurox, Lilian nn 0.9% IV 100 00 Zinacef) mL Simvastatin No Notes: Hossein diana 8-14 (Same as: l 02:00: Zocor) Conklin Simvastatin No Notes: Hossein diana 8-14 (Same as: l 02:00: Zocor) Jesús 00 Fentanyl No Notes: Memoria 8-13 (Same as: l 22:36: Sublimaze) Jesús 00 Preservati ve free. Fentanyl No Notes: Memoria 8-13 (Same as: l 22:36: Sublimaze) Jessú Preservati ve free. Fentanyl No Notes: Memoria 8-13 (Same as: l 22:35: Sublimaze) Jesús Preservati ve free. Fentanyl No Notes: Memoria 8-13 (Same as: l 22:35: Sublimaze) Jesús Preservati ve free. cilostazol No Notes: Memor ia 8-13 Non-Formul l 22:00: david Drug. (Same As: Pletal) Fish Oil No Route: PO, Mem oria 8-13 BID, l 22:00: Dosing Weight 65.909, kg, Start date: 02/06/14 17:00:00, Duration: 30 day, Stop date: 03/08/14 9:00:00 Docusate No Notes: Memoria Sodium 100 8-13 (Same as: l MG Oral 22:00: Colace) Conklin Capsule 00 (Do Not Crush) Vitamin C No Route: PO, Me moria 8-13 BID, l 22:00: Dosing Weight 65.909, kg, Start date: 02/06/14 17:00:00, Duration: 30 day, Stop date: 03/08/14 9:00:00 cilostazol No Notes: Memor ia 8-13 Non-Formul l 22:00: david Drug. (Same As: Pletal) Fish Oil No Route: PO, Mem oria 8-13 BID, l 22:00: Dosing Weight 65.909, kg, Start date: 02/06/14 17:00:00, Duration: 30 day, Stop date: 03/08/14 9:00:00 Docusate No Notes: Memoria Sodium 100 8-13 (Same as: l MG Oral 22:00: Colace) Conklin Capsule 00 (Do Not Crush) Vitamin C No Route: PO, Me moria 02-06 BID, l 22:00: Dosing Weight 65.909, kg, Start date: 02/06/14 17:00:00, Duration: 30 day, Stop date: 03/08/14 9:00:00 Albumin No Notes: SANDY Ceja 02-06 LOT#: l 50 MG/ML 20:51: Her mckee Injectable 00 ___ Solution Mfg: (Same as: Albuminar) "blood product derivative " Albumin No Notes: SANDY Ceja 02-06 LOT#: l 50 MG/ML 20:51: Her mckee Injectable 00 ___ Solution Mfg: (Same as: Albuminar) "blood product derivative " Zofran No Notes: Memoria 02-06 (Same as: l 20:50: Zofran) Norepinephr No Notes: Hossein diana ine 02-06 Same as: l 20:50: Levophed. Administer by either central venous catheter or peripheral ly-inserte d central catheter (PICC) line. Concentrat ion: 0.032 mg / mL Zofran No Notes: Memoria 02-06 (Same as: l 20:50: Zofran) Norepinephr No Notes: Hossein diana ine 02-06 Same as: l 20:50: Levophed. Administer by either central venous catheter or peripheral ly-inserte d central catheter (PICC) line. Concentrat ion: 0.032 mg / mL Albumin No Notes: SANDY Ceja 02-06 LOT#: l 50 MG/ML 19:58: Her mckee Injectable 00 ___ Solution Mfg: (Same as: Albuminar) "blood product derivative " Albumin No Notes: SANDY Ceja 02-06 LOT#: l 50 MG/ML 19:58: Her mckee Injectable 00 ___ Solution Mfg: (Same as: Albuminar) "blood product derivative " Calcium 2013-0 No 1,000 mg, Memor ia Gluconate 8-13 50 mL, l 19:57: Route: Jesús 00 IVPB, Drug form: INJ, ONCE, Dosing Weight 65.909, kg, Start date: 02/06/14 14:57:00, Stop date: 02/06/14 14:57:00 Calcium 2013-0 No 1,000 mg, Memor ia Gluconate 8-13 50 mL, l 19:57: Route: Conklin 00 IVPB, Drug form: INJ, ONCE, Dosing Weight 65.909, kg, Start date: 02/06/14 14:57:00, Stop date: 02/06/14 14:57:00 Dextrose 2013-0 No 50 mL, Memoria 50% in 02-06 Route: l Water IV 19:22: IVP, Start Her mckee 00 date: 02/06/14 14:22:00, Duration: 30 day, Stop date: 03/08/14 14:21:00, PRN See Nurse's Notes Dextrose 2013-0 No 50 mL, Memoria 50% in 02-06 Route: l Water IV 19:22: IVP, Start Her mckee 00 date: 02/06/14 14:22:00, Duration: 30 day, Stop date: 03/08/14 14:21:00, PRN See Nurse's Notes Insulin 2013-0 No 60 units) Hossein diana regular 100 8- Stable for l unit + 19:21: 28 days at [facility] nn Sodium 00 room Chloride temperatur 0.9% IV 99 e Expires mL in days from ____Date Insulin 2013-0 No 60 units) Hossein diana regular 100 8-13 Stable for l unit + 19:21: 28 days at Lilian nn Sodium 00 room Chloride temperatur 0.9% IV 99 e Expires mL in days from ____Date Saline 2013-0 No Notes: Memoria Flush 0.9% 8-13 (Same as: l 19:14: BD Jesús 00 Posiflush) D5W 1/2NS + No Notes: Hossein diana KCL 20mEq/L 8-13 PREMIX IV l 1000ml 19:14: - Do Not Conklin (Premix) 00 Alter 1,000 mL Acetaminoph No Notes: Do M emoria en 325 MG / 8- not exceed l Hydrocodone 19:14: 4gm/day of Conklin Bitartrate 00 acetaminop 10 MG Oral hen. (Same Tablet as: Bard 325/10) Morphine No Notes: Memoria 8-13 (Same l 19:14: as:MORPhin Conklin 00 e Sulfate) Acetaminoph No Notes: Do M emoria en 8-13 not exceed l 19:14: 4 gm/day. Jesús 00 (Same as: Tylenol) acetaminoph No Notes: Do M emoria en-codeine 8- not exceed l #3 19:14: 4gm/day of Jesús 00 acetaminop hen. (Same as: Tylenol with Codeine # 3) Acetaminoph No Notes: Hossein diana en 325 MG / 8-13 (Same as: l Hydrocodone 19:14: Bard Lilian nn Bitartrate 00 325/5) Do 5 MG Oral not exceed Tablet 4gm/day of acetaminop hen. Saline No Notes: Memoria Flush 0.9% 8-13 (Same as: l 19:14: BD Conklin 00 Posiflush) D5W 1/2NS + No Notes: Hossein diana KCL 20mEq/L 8-13 PREMIX IV l 1000ml 19:14: - Do Not Conklin (Premix) 00 Alter 1,000 mL Acetaminoph No Notes: Do M emoria en 325 MG / 8-13 not exceed l Hydrocodone 19:14: 4gm/day of Conklin Bitartrate 00 acetaminop 10 MG Oral hen. (Same Tablet as: Bard 325/10) Morphine No Notes: Memoria 8-13 (Same l 19:14: as:MORPhin Conklin 00 e Sulfate) Acetaminoph No Notes: Do M emoria en 02-06 not exceed l 19:14: 4 gm/day. Conklin 00 (Same as: Tylenol) acetaminoph No Notes: Do M emoria en-codeine 02-06 not exceed l #3 19:14: 4gm/day of Conklin 00 acetaminop hen. (Same as: Tylenol with Codeine # 3) Acetaminoph No Notes: Hossein diana en 325 MG / 02-06 (Same as: l Hydrocodone 19:14: Bard Lilian nn Bitartrate 00 325/5) Do 5 MG Oral not exceed Tablet 4gm/day of acetaminop hen. levothyroxi Yes Daily, 0 Me moria ne 50 mcg 808 Refill(s) l (0.05 mg) 16:02: Conklin oral tablet 00 Nitroglycer Yes 1 inch, Mem oria in 0.02 8-08 Daily, 0 l MG/MG 16:02: Refill(s) Conklin Topical 00 Ointment simvastatin Yes 10 mg = 1 M emoria 10 mg oral 8-08 tab, PO, l tablet 16:02: Bedtime, # Lilian nn 00 30 tab, 0 Refill(s) Aspirin Low Yes PO, Daily, Memoria Dose 81 mg 808 0 l oral tablet 16:02: Refill(s) H ermann 00 Atenolol 50 Yes 50 mg = 1 M emoria MG Oral 8-08 tab, l Tablet 16:02: Daily, 0 Jesús 00 Refill(s) dipyridamol Yes 75 mg = 1 M emoria e 75 mg 8-08 tab, PO, l oral tablet 16:02: BID, 0 Herm karina 00 Refill(s) cilostazol Yes 100 mg = 1 M emoria 100 mg oral 8-08 tab, PO, l tablet 16:02: BID, 0 Jesús 00 Refill(s) lisinopril Yes 10 mg = 1 Me moria 10 mg oral 8-08 tab, PO, l tablet 16:02: Bedtime, 0 Lilian nn 00 Refill(s) levothyroxi 2014-0 Yes Daily, 0 Me moria ne 50 mcg 08 Refill(s) l (0.05 mg) 16:02: Jesús oral tablet 00 Nitroglycer Yes 1 inch, Mem oria in 0.02 8-08 Daily, 0 l MG/MG 16:02: Refill(s) Jesús Topical 00 Ointment simvastatin Yes 10 mg = 1 M emoria 10 mg oral 808 tab, PO, l tablet 16:02: Bedtime, # Lilian nn 00 30 tab, 0 Refill(s) Aspirin Low Yes PO, Daily, Memoria Dose 81 mg 808 0 l oral tablet 16:02: Refill(s) H ermann 00 Atenolol 50 Yes 50 mg = 1 M emoria MG Oral 808 tab, l Tablet 16:02: Daily, 0 Jesús 00 Refill(s) dipyridamol Yes 75 mg = 1 M emoria e 75 mg 02-01 tab, PO, l oral tablet 16:02: BID, 0 Herm karina 00 Refill(s) cilostazol Yes 100 mg = 1 M emoria 100 mg oral 08 tab, PO, l tablet 16:02: BID, 0 Conklin 00 Refill(s) lisinopril Yes 10 mg = 1 Me moria 10 mg oral 08 tab, PO, l tablet 16:02: Bedtime, 0 Lilian nn 00 Refill(s) Cefuroxime No Notes: Memor ia 02-01 (Same As: l 15:00: Kefurox, Jesús 00 Zinacef) Cefuroxime No Notes: Memor ia 02-01 (Same As: l 15:00: Kefurox, Conklin 00 Zinacef) predniSONE Yes Liana 20 mg, 1 Memoria 20 mg oral 03-02 Ahmed tab, PO, l tablet 18:39: Badar Daily, Jesús 38 Please Take One Tab po for 3 days, Then 1/2 Tab PO for 3 days then stop taking, 6 tab, Substituti on AllowedPle ase Take One Tab po for 3 days, Then 1/2 Tab PO for 3 days then stop taking predniSONE Yes Liana 20 mg, 1 Memoria 20 mg oral 906 Ahmed tab, PO, l tablet 18:39: Badar Daily, Jesús 38 Please Take One Tab po for 3 days, Then 1/2 Tab PO for 3 days then stop taking, 6 tab, Substituti on AllowedPle ase Take One Tab po for 3 days, Then 1/2 Tab PO for 3 days then stop taking tramadol 50 Yes Liana 1-2, PO, Memoria mg oral 03-02 Ahmed Q4H, 50 l tablet 17:57: Badar tabJesús 09 Substituti on Allowed tramadol 50 Yes Liana 1-2, PO, Memoria mg oral 03-02 Ahmed Q4H, 50 l tablet 17:57: Badar tab, Jesús 09 Substituti on Allowed predniSONE No Liana 1 mg, 1 M emoria taper daily 03-02 Ahmed tab, PO, l 17:56: Badar Daily, 3 Jesús 51 tab, Substituti on Allowed, Please Take 1 Tab for Three Days then 1/2 Tab for 3 days then stopPlease Take 1 Tab for Three Days then 1/2 Tab for 3 days then stop predniSONE No Liana 1 mg, 1 M emoria taper daily 03-02 Ahmed tab, PO, l 17:56: Badar Daily, 3 Jesús 51 tab, Substituti on Allowed, Please Take 1 Tab for Three Days then 1/2 Tab for 3 days then stopPlease Take 1 Tab for Three Days then 1/2 Tab for 3 days then stop ipratropium Yes Liana 0.5 mg, Memoria 0.02% 03-02 Ahmed NEB, Q8H, l inhalation 17:56: Badar PRN, 25 Her mckee solution 31 ea, wheezing, Substituti on Allowed ipratropium Yes Liana 0.5 mg, Memoria 0.02% 03-02 Ahmed NEB, Q8H, l inhalation 17:56: Badar PRN, 25 Her mckee solution 31 ea, wheezing, Substituti on Allowed Xopenex Yes Liana 1.25, NEB, M emoria 1.25 mg/3 03-02 Ahmed Q8H, 2 l mL 17:53: Badar inhalation Kishore n inhalation 39 , solution Substituti on Allowed Xopenex Yes Liana 1.25, NEB, M emoria 1.25 mg/3 - Ahmed Q8H, 2 l mL 17:53: Badar inhalation Kishore n inhalation 39 , solution Substituti on Allowed predniSONE No See Memoria 20 mg oral 03-02 Special l tablet 17:06: Yoselin loving 12 ns, PO, Daily, 12 day regimen: Days 1-4 - 40 mg (2 tabs) daily Days 5-8 - 20 mg (1 tab) daily Days 9-12 - 10 mg (1/2 tab) daily, 12 tab, Substituti on [id number] day regimen: Days 1-4 - 40 mg (2 tabs) daily Days 5-8 - 20 mg (1 tab) daily Days 9-12 - 10 mg (1/2 tab) daily predniSONE No See Memoria 20 mg oral 03-02 Special l tablet 17:06: Yoselin loving 12 ns, PO, Daily, 12 day regimen: Days 1-4 - 40 mg (2 tabs) daily Days 5-8 - 20 mg (1 tab) daily Days 9-12 - 10 mg (1/2 tab) daily, 12 tab, Substituti on [id number] day regimen: Days 1-4 - 40 mg (2 tabs) daily Days 5-8 - 20 mg (1 tab) daily Days 9-12 - 10 mg (1/2 tab) daily potassium No Liana 20 mEq, 1 Memoria chloride 20 03-02 Ahmed tab, l mEq oral 14:00: Badar Route: PO, Jonas rmann tablet, 00 Drug form: extended ERTAB, release Daily, Dosing Weight 65, kg, Start date: 03/02/13 9:00:00, Duration: 30 day, Stop date: 03/31/13 9:00:00 predniSONE No Liana 40 mg, 2 Memoria - Ahmed tab, l 14:00: Badar Route: PO, Kishore n 00 Drug form: TAB, Daily, Dosing Weight 65, kg, Start date: 03/02/13 9:00:00, Duration: 30 day, Stop date: 03/31/13 9:00:00 potassium 2013-0 No Liana 20 mEq, 1 Memoria chloride 20 -06 Ahmed tab, l mEq oral 14:00: Badar Route: PO, He iris tablet, 00 Drug form: extended ERTAB, release Daily, Dosing Weight 65, kg, Start date: 03/02/13 9:00:00, Duration: 30 day, Stop date: 03/31/13 9:00:00 predniSONE 2012-0 No Liana 40 mg, 2 Memoria 9-06 Ahmed tab, l 14:00: Badar Route: PO, Kishore n 00 Drug form: TAB, Daily, Dosing Weight 65, kg, Start date: 03/02/13 9:00:00, Duration: 30 day, Stop date: 03/31/13 9:00:00 Lasix 2012-0 No Jeff 40 mg, 1 Memori a 9-05 Barbara tab, l 22:00: Jr Route: PO, Jesús Drug form: TAB, BID, Start date: 03/01/13 17:00:00, Duration: 30 day, Stop date: 03/31/13 9:00:00 Lasix 2012-0 No Jeff 40 mg, 1 Memori a 9-05 Barbara tab, l 22:00: Jr Route: PO, Conklin Drug form: TAB, BID, Start date: 03/01/13 17:00:00, Duration: 30 day, Stop date: 03/31/13 9:00:00 K-Dur 20 2012-0 No Jeff 20 mEq, 1 Me moria 9-05 Barbara tab, l 17:04: Jr Route: PO, Jesús Drug form: ERTAB, BID, Start date: 03/01/13 12:04:00, Duration: 30 day, Stop date: 03/31/13 9:00:00 K-Dur 20 2012-0 No Jeff 20 mEq, 1 Me moria 9-05 Barbara tab, l 17:04: Jr Route: PO, Conklin Drug form: ERTAB, BID, Start date: 03/01/13 12:04:00, Duration: 30 day, Stop date: 03/31/13 9:00:00 Lopressor 2012-0 No Jeff 25 mg, 1 Me moria 9-05 Barbara tab, l 17:03: Jr Route: PO, Jesús Drug form: TAB, Q12H, Start date: 03/01/13 12:03:00, Duration: 30 day, Stop date: 03/31/13 9:00:00 Lopressor 2012- No Jeff 25 mg, 1 Me moria 03-01 Barbara tab, l 17:03: Jr Route: PO, Drug form: TAB, Q12H, Start date: 03/01/13 12:03:00, Duration: 30 day, Stop date: 03/31/13 9:00:00 potassium Yes Anna 20 mEq, 1 Memoria chloride 20 03-01 Kita tab, PO, l mEq oral 15:18: BID, 60 Kishore n tablet, 37 tab, 5, 5, extended Substituti release on Allowed potassium Yes Anna 20 mEq, 1 Memoria chloride 20 03-01 Kita tab, PO, l mEq oral 15:18: BID, 60 Kishore n tablet, 37 tab, 5, 5, extended Substituti release on Allowed aspirin 81 Yes Anna 81 mg, 1 Memoria mg tablet, 03-01 Kita tab, PO, l chewable 15:12: Daily, 30 Herm karina 34 tab, Substituti on Allowed, CHEWTAB aspirin 81 Yes Anna 81 mg, 1 Memoria mg tablet, 03-01 Kita tab, PO, l chewable 15:12: Daily, 30 Herm karina 34 tab, Substituti on Allowed, CHEWTAB Lasix 40 mg Yes Anna 40 mg, 1 Memoria oral tablet 03-01 Kita tab, PO, l 15:01: BID, 60 Jesús 12 tab, 5, 5, Substituti on Allowed, TAB Lasix 40 mg Yes Anna 40 mg, 1 Memoria oral tablet 03-01 Kita tab, PO, l 15:01: BID, 60 Jesús 12 tab, 5, 5, Substituti on Allowed, TAB metoprolol Yes Anna 25 mg, 1 Memoria tartrate 25 03-01 Kita tab, PO, l mg oral 15:00: BID, 60 Jesús tablet 06 tab, 5, 5, Substituti on Allowed, TAB metoprolol 2013-0 Yes Anna 25 mg, 1 Memoria tartrate 25 9-05 Kita tab, PO, l mg oral 15:00: BID, 60 Conklin tablet 06 tab, 5, 5, Substituti on Allowed, TAB simvastatin Yes Anna 20 mg, 1 Memoria 20 mg oral 9-05 Kita tab, PO, l tablet 14:58: Bedtime, Jesús 35 30 tab, 5, 5, Substituti on Allowed, TAB simvastatin Yes Anna 20 mg, 1 Memoria 20 mg oral 9-05 Kita tab, PO, l tablet 14:58: Bedtime, Conklin 35 30 tab, 5, 5, Substituti on Allowed, TAB levothyroxi Yes Anna 50 Mem oria ne 50 mcg 9-05 Kita microgram, l (0.05 mg) 14:58: 1 tab, PO, He rmann oral tablet 30 Daily, 30 tab, 5, 5, Substituti on Allowed, TAB levothyroxi Yes Anna 50 Mem oria ne 50 mcg 9-05 Kita microgram, l (0.05 mg) 14:58: 1 tab, PO, He rmann oral tablet 30 Daily, 30 tab, 5, 5, Substituti on Allowed, TAB dipyridamol Yes Anna 75 mg, 1 Memoria e 75 mg 9-05 Kita tab, PO, l oral tablet 14:58: BID, 60 Her mckee 28 tab, 5, 5, Substituti on Allowed, TAB dipyridamol Yes Anna 75 mg, 1 Memoria e 75 mg 9-05 Kita tab, PO, l oral tablet 14:58: BID, 60 Her mckee 28 tab, 5, 5, Substituti on Allowed, TAB cilostazol Yes Anna 100 mg, 1 Memoria 100 mg oral 9-05 Kita tab, PO, l tablet 14:58: BID, 60 Conklin 25 tab, 5, 5, Substituti on Allowed, TAB cilostazol Yes Anna 100 mg, 1 Memoria 100 mg oral 9-05 Kita tab, PO, l tablet 14:58: BID, 60 Conklin 25 tab, 5, 5, Substituti on Allowed, TAB amLODipine Yes Anna 5 mg, 1 M emoria 5 mg oral 03-01 Kita tab, PO, l tablet 14:57: Daily, 30 Kishore n 30 tab, 5, 5, Substituti on Allowed, TAB amLODipine Yes Anna 5 mg, 1 M emoria 5 mg oral 03-01 Kita tab, PO, l tablet 14:57: Daily, 30 Kishore n 30 tab, 5, 5, Substituti on Allowed, TAB predniSONE No Liana 30 mg, 3 Memoria -05 Ahmed tab, l 14:00: Badar Route: PO, Kishore n 00 Drug form: TAB, Daily, Dosing Weight 65, kg, Start date: 03/01/13 9:00:00, Duration: 30 day, Stop date: 03/30/13 9:00:00 predniSONE No Liana 30 mg, 3 Memoria -05 Ahmed tab, l 14:00: Badar Route: PO, Kishore n 00 Drug form: TAB, Daily, Dosing Weight 65, kg, Start date: 03/01/13 9:00:00, Duration: 30 day, Stop date: 03/30/13 9:00:00 simvastatin No Anna 20 mg, 1 Memoria -05 Kita tab, l 02:00: Route: PO, Jesús 00 Drug form: TAB, Bedtime, Dosing Weight 65, kg, Start date: 02/28/13 21:00:00, Duration: 30 day, Stop date: 03/29/13 21:00:00 simvastatin 0 No Anna 20 mg, 1 Memoria -05 Kita tab, l 02:00: Route: PO, Conklin 00 Drug form: TAB, Bedtime, Dosing Weight 65, kg, Start date: 02/28/13 21:00:00, Duration: 30 day, Stop date: 03/29/13 21:00:00 Pletal No Ike 100 mg, 1 Mem oria 02-28 Danny tab, l 22:00: Silverio Route: PO, He rmann 00 Drug form: TAB, BID, Start date: 02/28/13 17:00:00, Duration: 30 day, Stop date: 03/30/13 9:00:00 Pletal 2013-0 No Ike 100 mg, 1 Mem oria 02-28 Danny tab, l 22:00: Silverio Route: PO, He Drug form: TAB, BID, Start date: 02/28/13 17:00:00, Duration: 30 day, Stop date: 03/30/13 9:00:00 insulin 2012-0 No Franky 6 unit, Memor ia aspart 02-28s 0.06 mL, l 18:36: Route: Jesús 00 SUB-Q, Drug form: SOLN, TID-Before Meals, Dosing Weight 65, kg, PRN Blood Glucose Results, Start date: 02/28/13 13:36:00, Duration: 30 day, Stop date: 03/30/13 13:35:00 Dextrose 2012-0 No Franky 12.5 gm, Mem oria 50% Syringe 02-28s 25 mL, l 18:36: Route: IVP, Drug Form: INJ, Dosing Weight 65, kg, PRN, PRN Blood Glucose Results, Start date: 02/28/13 13:36:00, Duration: 30 day, Stop date: 03/30/13 13:35:00 glucagon 2012-0 No Franky 1 mg, Memori a 02-28 Route: IM, l 18:36: Drug form: Conklin 00 PDR/INJ, PRN, Dosing Weight 65, kg, PRN Blood Glucose Results, Start date: 02/28/13 13:36:00, Duration: 30 day, Stop date: 03/30/13 13:35:00 insulin 2012-0 No Franky 6 unit, Memor ia aspart 02-28s 0.06 mL, l 18:36: Route: SUB-Q, Drug form: SOLN, TID-Before Meals, Dosing Weight 65, kg, PRN Blood Glucose Results, Start date: 02/28/13 13:36:00, Duration: 30 day, Stop date: 03/30/13 13:35:00 Dextrose 2012-0 No Franky 12.5 gm, Mem oria 50% Syringe 02-28s 25 mL, l 18:36: Route: IVP, Drug Form: INJ, Dosing Weight 65, kg, PRN, PRN Blood Glucose Results, Start date: 02/28/13 13:36:00, Duration: 30 day, Stop date: 03/30/13 13:35:00 glucagon 2012-0 No Franky 1 mg, Memori a 02-28 Route: IM, l 18:36: Drug form: Jesús 00 PDR/INJ, PRN, Dosing Weight 65, kg, PRN Blood Glucose Results, Start date: 02/28/13 13:36:00, Duration: 30 day, Stop date: 03/30/13 13:35:00 K-Dur 20 2012-0 No Ike 40 mEq, 2 M emoria 02-28 Danny tab, l 18:00: Silverio Route: PO, He rmann 00 Drug form: ERTAB, ONCE, Start date: 02/28/13 13:00:00, Stop date: 02/28/13 13:00:00 K-Dur 20 2012-0 No Ike 40 mEq, 2 M emoria 02-28 Danny tab, l 18:00: Silverio Route: PO, He rmann Drug form: ERTAB, ONCE, Start date: 02/28/13 13:00:00, Stop date: 02/28/13 13:00:00 potassium 2012-0 No Liana 40 mEq, 2 Memoria chloride 9-04 Ahmed pkt, l 16:00: Badar Route: PO, Kishore n 00 Drug form: PDR/REC, ONCE, Dosing Weight 65, kg, Start date: 02/28/13 11:00:00, Stop date: 02/28/13 11:00:00 potassium 2012-0 No Liana 40 mEq, 2 Memoria chloride 9-04 Ahmed pkt, l 16:00: Badar Route: PO, Kishore n 00 Drug form: PDR/REC, ONCE, Dosing Weight 65, kg, Start date: 02/28/13 11:00:00, Stop date: 02/28/13 11:00:00 SoluMedrol 2012-0 No Liana 60 mg, Me moria 9-04 Ahmed 0.96 mL, l 02:00: Badar Route: Conklin 00 IVP, Drug form: INJ, Q12H, Dosing Weight 65, kg, Start date: 02/27/13 21:00:00, Duration: 30 day, Stop date: 03/29/13 9:00:00 SoluMedrol 2012-0 No Liana 60 mg, Me moria 9-04 Ahmed 0.96 mL, l 02:00: Badar Route: Conklin 00 IVP, Drug form: INJ, Q12H, Dosing Weight 65, kg, Start date: 02/27/13 21:00:00, Duration: 30 day, Stop date: 03/29/13 9:00:00 K-Dur 20 2012-0 No Hamzah 40 mEq, 2 Mem oria 9-04 Jacobo tab, l 01:00: Matthews Route: PO, Kishore n 00 Drug form: ERTAB, ONCE, Start date: 02/27/13 20:00:00, Stop date: 02/27/13 20:00:00 Zaroxolyn 2012-0 No Hamzah 5 mg, 2 Hossein diana 9-04 Jacobo tab, l 01:00: Matthews Route: PO, Kishore n 00 Drug form: TAB, ONCE, Start date: 02/27/13 20:00:00, Stop date: 02/27/13 20:00:00 Lasix 2012-0 No Hamzah 40 mg, 4 Memoria 9-04 Jacobo mL, Route: l 01:00: Matthews IV, Drug Jesús form: INJ, BID, Start date: 02/27/13 20:00:00, Duration: 30 day, Stop date: 03/29/13 17:00:00 K-Dur 20 2012-0 No Hamzah 40 mEq, 2 Mem oria 9-04 Jacobo tab, l 01:00: Matthews Route: PO, Kishore n 00 Drug form: ERTAB, ONCE, Start date: 02/27/13 20:00:00, Stop date: 02/27/13 20:00:00 Zaroxolyn 2012-0 No Hamzah 5 mg, 2 Hossein diana 9-04 Jacobo tab, l 01:00: Matthews Route: PO, Kishore n 00 Drug form: TAB, ONCE, Start date: 02/27/13 20:00:00, Stop date: 02/27/13 20:00:00 Lasix 2012-0 No Hamzah 40 mg, 4 Memoria 9-04 Jacobo mL, Route: l 01:00: Matthews IV, Drug Conklin 00 form: INJ, BID, Start date: 02/27/13 20:00:00, Duration: 30 day, Stop date: 03/29/13 17:00:00 Lasix 0 No Liana 40 mg, 4 Memor ia 02-27 Ahmed mL, Route: l 14:22: Badar IV, Drug Jesús 00 form: INJ, QAM, Start date: 02/27/13 9:22:00, Duration: 30 day, Stop date: 03/29/13 9:00:00 Lasix No Liana 40 mg, 4 Memor ia 02-27 Ahmed mL, Route: l 14:22: Badar IV, Drug Conklin 00 form: INJ, QAM, Start date: 02/27/13 9:22:00, Duration: 30 day, Stop date: 03/29/13 9:00:00 glucagon No Franky 1 mg, Memori a 02-27 Route: l 05:20: INJ, Drug Jesús form: PDR/INJ, PRN, PRN Blood Glucose Results, Start date: 02/27/13 0:20:00, Duration: 30 day, Stop date: 03/29/13 0:19:00 NovoLog No Franky 14 unit, Hossein diana FlexPen 02-27 0.14 mL, l 05:20: Route: Jesús 00 SUB-Q, Drug form: SOLN, Sliding Scale, PRN Blood Glucose Results, Start date: 02/27/13 0:20:00, Duration: 30 day, Stop date: 03/29/13 0:19:00 Dextrose 0 No Franky 50 mL, Memor ia 50% in 02-27 Route: l Water IV 05:20: IVP, Start Her mckee 00 date: 02/27/13 0:20:00, Duration: 30 day, Stop date: 03/29/13 0:19:00, PRN Blood Glucose Results glucagon No Franky 1 mg, Memori a 02-27 Route: l 05:20: INJ, Drug Jesús 00 form: PDR/INJ, PRN, PRN Blood Glucose Results, Start date: 02/27/13 0:20:00, Duration: 30 day, Stop date: 03/29/13 0:19:00 NovoLog 2012-0 No Franky 14 unit, Hossein diana FlexPen 02-27 0.14 mL, l 05:20: Route: Conklin 00 SUB-Q, Drug form: SOLN, Sliding Scale, PRN Blood Glucose Results, Start date: 02/27/13 0:20:00, Duration: 30 day, Stop date: 03/29/13 0:19:00 Dextrose 2012- No Franky 50 mL, Memor ia 50% in 02-27 Route: l Water IV 05:20: IVP, Start Her mckee 00 date: 02/27/13 0:20:00, Duration: 30 day, Stop date: 03/29/13 0:19:00, PRN Blood Glucose Results Trandate No Ike 20 mg, 4 Me moria 02-27 Danny mL, Route: l 00:00: Silverio IV, Drug Herm karina 00 form: INJ, Q6H, PRN See Nurse's Notes, Start date: 02/26/13 19:00:00, Duration: 30 day, Stop date: 03/28/13 18:59:00 Trandate No Ike 20 mg, 4 Me moria 02-27 Danny mL, Route: l 00:00: Silverio IV, Drug Herm karina 00 form: INJ, Q6H, PRN See Nurse's Notes, Start date: 02/26/13 19:00:00, Duration: 30 day, Stop date: 03/28/13 18:59:00 Protonix 2012-0 No Ike 40 mg, 1 Me moria 02-26 Danny tab, l 23:00: Silverio Route: PO, He rmann 00 Drug form: ECTAB, Before Dinner, Start date: 02/26/13 18:00:00, Duration: 30 day, Stop date: 03/28/13 16:30:00 Protonix 2012-0 No Ike 40 mg, 1 Me moria 02-26 Danny tab, l 23:00: Silverio Route: PO, He rmann 00 Drug form: ECTAB, Before Dinner, Start date: 02/26/13 18:00:00, Duration: 30 day, Stop date: 03/28/13 16:30:00 Trandate 2012-0 No Silvio L 10 mg, 2 Mem oria 02-26 Mangin Jr mL, Route: l 22:49: IV, Drug Conklin 00 form: INJ, Q6H, PRN See Nurse's Notes, Start date: 02/26/13 17:49:00, Duration: 30 day, Stop date: 03/28/13 17:48:00 Trandate 2012-0 No Silvio L 10 mg, 2 Mem oria 02-26 Mangin Jr mL, Route: l 22:49: IV, Drug Jesús 00 form: INJ, Q6H, PRN See Nurse's Notes, Start date: 02/26/13 17:49:00, Duration: 30 day, Stop date: 03/28/13 17:48:00 Trandate 2012-0 No Ike 20 mg, 4 Me moria - Danny mL, Route: l 18:01: Silverio IV, Drug Herm karina 00 form: INJ, ONCE, Start date: 02/26/13 13:01:00, Stop date: 02/26/13 13:01:00 Trandate 2012-0 No Ike 20 mg, 4 Me moria - Danny mL, Route: l 18:01: Silverio IV, Drug Herm karina 00 form: INJ, ONCE, Start date: 02/26/13 13:01:00, Stop date: 02/26/13 13:01:00 Xanax 2012-0 No Ck 0.5 mg, 1 Memor ia 02-26 Dylon tab, l 18:00: Xie Route: Tiarra ALFORD karina 00 Drug form: TAB, Q12H, Start date: 02/26/13 13:00:00, Duration: 4 doses or times, Stop date: 02/27/13 21:00:00 Xanax 2012-0 No Ck 0.5 mg, 1 Memor ia 02-26 Dylon tab, l 18:00: Xie Route: NGTiarra karina 00 Drug form: TAB, Q12H, Start date: 02/26/13 13:00:00, Duration: 4 doses or times, Stop date: 02/27/13 21:00:00 GoLYTELY 2012-0 No Nadim Carlos A 4,000 ml, Memoria 02-26 Shoaib Route: PO, l 14:19: Drug Form: Jesús 00 PDR/REC, Dosing Weight 65, kg, ONCE, Start date: 02/26/13 9:19:00, Duration: 1 doses or times, Stop date: 02/26/13 9:19:00 GoLYTELY 2012-0 No Nadim Carlos A 4,000 ml, Memoria 02-26 Shoaib Route: PO, l 14:19: Drug Form: Conklin 00 PDR/REC, Dosing Weight 65, kg, ONCE, Start date: 02/26/13 9:19:00, Duration: 1 doses or times, Stop date: 02/26/13 9:19:00 Fosamax 2012-0 No Ike 10 mg, 1 Mem oria 02-26 Danny tab, l 11:30: Silverio Route: PO, He rm Drug form: TAB, Q630AM, Start date: 02/26/13 6:30:00, Duration: 30 day, Stop date: 03/27/13 6:30:00 Fosamax 2012-0 No Ike 10 mg, 1 Mem oria 02-26 Danny tab, l 11:30: Silverio Route: PO, He rm Drug form: TAB, Q630AM, Start date: 02/26/13 6:30:00, Duration: 30 day, Stop date: 03/27/13 6:30:00 Insulin 2012-0 No Nancy-Ye 99 mL, Memor ia regular 100 9-02 Irlanda Sameer Rate: l unit + 04:27: titrate, Jesús Sodium 00 Route: IV, Chloride Dosing 0.9% IV 99 Weight 65 mL kg, Total Volume: 100, Start date: 02/25/13 23:27:00, Duration: 30 day, Stop date: 03/27/13 23:26:00 Insulin 2012-0 No Nancy-Ye 99 mL, Memor ia regular 100 9-02 Irlanda Sameer Rate: l unit + 04:27: titrate, Jesús Sodium 00 Route: IV, Chloride Dosing 0.9% IV 99 Weight 65 mL kg, Total Volume: 100, Start date: 02/25/13 23:27:00, Duration: 30 day, Stop date: 03/27/13 23:26:00 calcium 2012-0 No Ike 1,000 mg, Me moria gluconate + 9-02 Danny 10 mL, l Dextrose 5% 03:30: Silverio Route: IV, Conklin in Water IV 00 Drug form: 100 mL INJ, ONCE, Start date: 02/25/13 22:30:00, Stop date: 02/25/13 22:30:00 calcium 2012-0 No Ike 1,000 mg, Me moria gluconate + 9-02 Danny 10 mL, l Dextrose 5% 03:30: Silverio Route: IV, Jesús in Water IV 00 Drug form: 100 mL INJ, ONCE, Start date: 02/25/13 22:30:00, Stop date: 02/25/13 22:30:00 calcium 2012-0 No Ike 1 gm, 50 Mem oria gluconate -02 Danny mL, Route: l 01:50: Silverio IV, Drug Herm karina 00 form: INJ, ONCE, Start date: 02/25/13 20:50:00, Stop date: 02/25/13 20:50:00 calcium 2012-0 No Ike 1 gm, 50 Mem oria gluconate -02 Danny mL, Route: l 01:50: Silverio IV, Drug Herm karina 00 form: INJ, ONCE, Start date: 02/25/13 20:50:00, Stop date: 02/25/13 20:50:00 Insulin 2012-0 No Nancy-Ye 99 mL, Memor ia regular 100 02-25 Irlanda Sameer Rate: l unit + 21:22: titrate, Conklin Sodium 00 Route: IV, Chloride Dosing 0.9% IV 99 Weight 65 mL kg, Total Volume: 100, Start date: 02/25/13 16:22:00, Duration: 30 day, Stop date: 03/27/13 16:21:00 Insulin 2012-0 No Nancy-Ye 99 mL, Memor ia regular 100 02-25 Irlanda Sameer Rate: l unit + 21:22: titrate, Conklin Sodium 00 Route: IV, Chloride Dosing 0.9% IV 99 Weight 65 mL kg, Total Volume: 100, Start date: 02/25/13 16:22:00, Duration: 30 day, Stop date: 03/27/13 16:21:00 Dextrose 5% 0 No Nancy-Ye 1,000 mL, Memoria in Water IV 02-25 Irlanda Sameer Rate: 50 l 1,000 mL 17:39: ml/hr, Jesús 00 Infuse over: 20 hr, Route: IV, Dosing Weight 65 kg, Total Volume: 1,000, Start date: 02/25/13 12:39:00, Duration: 30 day, Stop date: 03/27/13 12:38:00 Dextrose 5% 2012- No Nancy-Ye 1,000 mL, Memoria in Water IV 02-25 Irlanda Sameer Rate: 50 l 1,000 mL 17:39: ml/hr, Conklin 00 Infuse over: 20 hr, Route: IV, Dosing Weight 65 kg, Total Volume: 1,000, Start date: 02/25/13 12:39:00, Duration: 30 day, Stop date: 03/27/13 12:38:00 SoluMedrol 2012-0 No Liana 60 mg, 1.5 Memoria - Ahmed mL, Route: l 17:00: Badar IV, Drug Conklin 00 form: INJ, Q8H, Dosing Weight 65, kg, Start date: 02/25/13 12:00:00, Duration: 30 day, Stop date: 03/27/13 6:30:00 SoluMedrol 2012-0 No Liana 60 mg, 1.5 Memoria - Ahmed mL, Route: l 17:00: Badar IV, Drug Conklin 00 form: INJ, Q8H, Dosing Weight 65, kg, Start date: 02/25/13 12:00:00, Duration: 30 day, Stop date: 03/27/13 6:30:00 Lasix 2012-0 No Marbin M 20 mg, 2 Mem oria 02-25 Sanderson mL, Route: l 14:00: IVP, Drug Conklin 00 form: INJ, Daily, Dosing Weight 65, kg, Start date: 02/25/13 9:00:00, Duration: 30 day, Stop date: 03/26/13 9:00:00 Lasix 2012-0 No Marbin M 20 mg, 2 Mem oria - Sanderson mL, Route: l 14:00: IVP, Drug Conklin 00 form: INJ, Daily, Dosing Weight 65, kg, Start date: 02/25/13 9:00:00, Duration: 30 day, Stop date: 03/26/13 9:00:00 normal No Westley A 85 mL, Memor ia saline 0.9% 02-25 Marnie Rate: 42.5 l IV 85 mL + 12:12: ml/hr, Lilian nn potassium 00 Infuse chloride 20 over: 2.4 mEq + hr, Route: sodium IVPB, bicarbonate Dosing 4% (Neut) 5 Weight 65 mL kg, Total Volume: 100 mL, Priority: STAT, Start date: 02/25/13 7:12:00, Duration: 1 doses or times, Stop date: 02/25/13 9:35:00 normal No Westley A 85 mL, Memor ia saline 0.9% 02-25 Marnie Rate: 42.5 l IV 85 mL + 12:12: ml/hr, Lilian nn potassium 00 Infuse chloride 20 over: 2.4 mEq + hr, Route: sodium IVPB, bicarbonate Dosing 4% (Neut) 5 Weight 65 mL kg, Total Volume: 100 mL, Priority: STAT, Start date: 02/25/13 7:12:00, Duration: 1 doses or times, Stop date: 02/25/13 9:35:00 calcium No Westley A 2 gm, 20 Me moria gluconate + 9- Marnie mL, Route: l Sodium 12:11: IVPB, Conklin Chloride 00 ONCE, 0.9% IV 100 Dosing mL Weight 65, kg, Start date: 02/25/13 7:11:00, Stop date: 02/25/13 7:11:00 calcium No Westley A 2 gm, 20 Me moria gluconate + 9-01 Marnie mL, Route: l Sodium 12:11: IVPB, Jesús Chloride 00 ONCE, 0.9% IV 100 Dosing mL Weight 65, kg, Start date: 02/25/13 7:11:00, Stop date: 02/25/13 7:11:00 glucagon No Franky 1 mg, Memori a 02-24 Route: IV, l 21:25: Drug form: Conklin 00 PDR/INJ, PRN, PRN Blood Glucose Results, Start date: 02/24/13 16:25:00, Duration: 30 day, Stop date: 03/26/13 16:24:00 Dextrose 2013-0 No Franky 50 mL, Memor ia 50% in 02-24 Route: l Water IV 21:25: IVP, Start Her mckee 00 date: 02/24/13 16:25:00, Duration: 30 day, Stop date: 03/26/13 16:24:00, PRN Blood Glucose Results NovoLog 2012-0 No Franky 10 unit, Hossein diana FlexPen 02-24s 0.1 mL, l 21:25: Route: Jesús 00 SUB-Q, Drug form: SOLN, Sliding Scale, PRN Blood Glucose Results, Start date: 02/24/13 16:25:00, Duration: 30 day, Stop date: 03/26/13 16:24:00 glucagon 2012-0 No Franky 1 mg, Memori a 02-24 Route: IV, l 21:25: Drug form: Jesús 00 PDR/INJ, PRN, PRN Blood Glucose Results, Start date: 02/24/13 16:25:00, Duration: 30 day, Stop date: 03/26/13 16:24:00 Dextrose 2012-0 No Franky 50 mL, Memor ia 50% in 02-24 Route: l Water IV 21:25: IVP, Start Her mckee 00 date: 02/24/13 16:25:00, Duration: 30 day, Stop date: 03/26/13 16:24:00, PRN Blood Glucose Results NovoLog 2012-0 No Franky 10 unit, Hossein diana FlexPen 02-24 0.1 mL, l 21:25: Route: Jesús SUB-Q, Drug form: SOLN, Sliding Scale, PRN Blood Glucose Results, Start date: 02/24/13 16:25:00, Duration: 30 day, Stop date: 03/26/13 16:24:00 NovoLog 2012-0 No Franky 6 unit, Memor ia FlexPen 02-24s 0.06 mL, l 21:24: Route: Jesús 00 SUB-Q, Drug form: SOLN, Sliding Scale, PRN Blood Glucose Results, Start date: 02/24/13 16:24:00, Duration: 30 day, Stop date: 03/26/13 16:23:00 NovoLog 2012-0 No Franky 6 unit, Memor ia FlexPen 02-24 Avendaño 0.06 mL, l 21:24: Route: Conklin 00 SUB-Q, Drug form: SOLN, Sliding Scale, PRN Blood Glucose Results, Start date: 02/24/13 16:24:00, Duration: 30 day, Stop date: 03/26/13 16:23:00 ipratropium 2012-0 No Ike 0.5 mg, Memoria 0.02% 8-31 Danny 2.5 mL, l inhalation 20:00: Silverio Route: Conklin solution 00 NEB, Drug form: SOLN, RQ4H, Start date: 02/24/13 15:00:00, Duration: 30 day, Stop date: 03/26/13 11:00:00 Mucomyst-20 2012-0 No Liana 600 mg, 3 Memoria inhalation 8-31 Ahmed mL, Route: l solution 20:00: Rob NEB, Drug Her mckee 00 Form: SOLN, Dosing Weight 65, kg, RQ4H, Start date: 02/24/13 15:00:00, Duration: 30 day, Stop date: 03/26/13 11:00:00 ipratropium 2012-0 No Ike 0.5 mg, Memoria 0.02% 8-31 Danny 2.5 mL, l inhalation 20:00: Silverio Route: Jesús solution NEB, Drug form: SOLN, RQ4H, Start date: 02/24/13 15:00:00, Duration: 30 day, Stop date: 03/26/13 11:00:00 Mucomyst-20 2012-0 No Liana 600 mg, 3 Memoria inhalation 8-31 Ahmed mL, Route: l solution 20:00: Badar NEB, Drug Her mckee 00 Form: SOLN, Dosing Weight 65, kg, RQ4H, Start date: 02/24/13 15:00:00, Duration: 30 day, Stop date: 03/26/13 11:00:00 Lopressor 2012-0 No Jeff 5 mg, 5 Mem oria 8-31 Barbara mL, Route: l 17:00: Jr IV, Drug Conklin 00 form: INJ, Q6H, Start date: 02/24/13 12:00:00, Duration: 30 day, Stop date: 03/26/13 6:00:00 Lopressor 2012-0 No Jeff 5 mg, 5 Mem oria 8-31 Barbara mL, Route: l 17:00: Jr IV, Drug Jesús 00 form: INJ, Q6H, Start date: 02/24/13 12:00:00, Duration: 30 day, Stop date: 03/26/13 6:00:00 potassium 2012-0 No Ike 20 mEq, 10 Memoria chloride + 8-31 Danny mL, Route: l Sodium 16:30: Silverio IV, Drug He rmann Chloride 00 form: INJ, 0.9% IV 50 QAM, Start mL date: 02/24/13 11:30:00, Duration: 30 day, Stop date: 03/26/13 9:00:00 potassium 2012-0 No Ike 20 mEq, 10 Memoria chloride + 8-31 Danny mL, Route: l Sodium 16:30: Silverio IV, Drug He rmann Chloride 00 form: INJ, 0.9% IV 50 QAM, Start mL date: 02/24/13 11:30:00, Duration: 30 day, Stop date: 03/26/13 9:00:00 Lasix 2012-0 No Ike 40 mg, 4 Memor ia 8-31 Danny mL, Route: l 16:03: Silverio IV, Drug Herm karina 00 form: INJ, QAM, Start date: 02/24/13 11:03:00, Duration: 30 day, Stop date: 03/26/13 9:00:00 Lasix 2012-0 No Ike 40 mg, 4 Memor ia 8-31 Danny mL, Route: l 16:03: Silverio IV, Drug Herm karina 00 form: INJ, QAM, Start date: 02/24/13 11:03:00, Duration: 30 day, Stop date: 03/26/13 9:00:00 Lasix 2012-0 No Westley A 20 mg, 2 Hossein diana 8-31 Marnie mL, Route: l 14:08: IVP, Drug Conklin 00 form: INJ, ONCE, Dosing Weight 65, kg, Start date: 02/24/13 9:08:00, Stop date: 02/24/13 9:08:00 Lasix 2012-0 No Westley A 20 mg, 2 Hossein diana 8-31 Marnie mL, Route: l 14:08: IVP, Drug Jesús 00 form: INJ, ONCE, Dosing Weight 65, kg, Start date: 02/24/13 9:08:00, Stop date: 02/24/13 9:08:00 protamine + 2012-0 No Ike 50 mg, 5 Memoria Sodium 8-31 Danny mL, Route: l Chloride 06:15: Silverio IV, Drug Jesús 0.9% IV 100 00 form: INJ, mL ONCE, Start date: 02/24/13 1:15:00, Stop date: 02/24/13 1:15:00 protamine + 2012-0 No Ike 50 mg, 5 Memoria Sodium 8-31 Danny mL, Route: l Chloride 06:15: Silverio IV, Drug Jesús 0.9% IV 100 00 form: INJ, mL ONCE, Start date: 02/24/13 1:15:00, Stop date: 02/24/13 1:15:00 phytonadion 2012-0 No Devan 10 mg, 1 Memoria e + Sodium 8-31 A. Loyd mL, Route: l Chloride 05:08: IVPB, Jesús 0.9% IV 50 00 ONCE, mL Start date: 02/24/13 0:08:00, Stop date: 02/24/13 0:08:00 phytonadion 2013-0 No Devan 10 mg, 1 Memoria e + Sodium 8-31 A. Loyd mL, Route: l Chloride 05:08: IVPB, Jesús 0.9% IV 50 00 ONCE, mL Start date: 02/24/13 0:08:00, Stop date: 02/24/13 0:08:00 phytonadion 2013-0 No Devan 10 mg, 1 Memoria e 8-31 A. Loyd mL, Route: l 04:32: IV, Drug Conklin 00 form: INJ, ONCE, Start date: 02/23/13 23:32:00, Stop date: 02/23/13 23:32:00 phytonadion 2013-0 No Devan 10 mg, 1 Memoria e 8-31 A. Loyd mL, Route: l 04:32: IV, Drug Jesús 00 form: INJ, ONCE, Start date: 02/23/13 23:32:00, Stop date: 02/23/13 23:32:00 calcium 2012-0 No Ike 1 gm, 50 Mem oria gluconate 8-31 Danny mL, Route: l 01:00: Silverio IV, Drug Herm karina 00 form: INJ, ONCE, Start date: 02/23/13 20:00:00, Stop date: 02/23/13 20:00:00 calcium 2012-0 No Ike 1 gm, 50 Mem oria gluconate 8-31 Danny mL, Route: l 01:00: Silverio IV, Drug Herm karina 00 form: INJ, ONCE, Start date: 02/23/13 20:00:00, Stop date: 02/23/13 20:00:00 budesonide 2013-0 No Liana 1 mg, 4 M emoria 8-30 Ahmed mL, Route: l 22:00: Badar NEB, Drug Conklin 00 form: LUKE, RQ12H, Dosing Weight 65, kg, Start date: 02/23/13 17:00:00, Stop date: 03/25/13 4:00:00 budesonide 2012-0 No Liana 1 mg, 4 M emoria 8-30 Ahmed mL, Route: l 22:00: Badar NEB, Drug Jesús 00 form: SOLN, RQ12H, Dosing Weight 65, kg, Start date: 02/23/13 17:00:00, Stop date: 03/25/13 4:00:00 Prevacid 2012-0 No Ike 30 mg, 10 M emoria 8-30 Danny mL, Route: l 21:30: Silverio PO, Drug Herm karina 00 form: SUSP, Before Dinner, Start date: 02/23/13 16:30:00, Duration: 30 day, Stop date: 03/24/13 16:30:00 Prevacid 2012-0 No Ike 30 mg, 10 M emoria 8-30 Danny mL, Route: l 21:30: Silverio PO, Drug Herm karina 00 form: SUSP, Before Dinner, Start date: 02/23/13 16:30:00, Duration: 30 day, Stop date: 03/24/13 16:30:00 morphine 2013-0 No Nancy-Ye IV, Start M emoria Sulfate 30 8-30 Irlanda Sameer date: l mg 18:58: 02/23/13 Conklin 13:58:00, Duration: 30, 30 ml, 65 morphine 2012-0 No Nancy-Jesus IV, Start M emoria Sulfate 30 8-30 Irlandahenry Estrella date: l mg 18:58: 02/23/13 Conklin 13:58:00, Duration: 30, 30 ml, 65 morphine 2012-0 No Iek 2 mg, 1 Mem oria Sulfate 8-30 Danny mL, Route: l 18:57: Silverio IV, Drug Herm karina form: INJ, Q2H, PRN Pain, Start date: 02/23/13 13:57:00, Duration: 30 day, Stop date: 03/25/13 13:56:00 morphine 2012-0 No Ike 2 mg, 1 Mem oria Sulfate 8-30 Danny mL, Route: l 18:57: Silverio IV, Drug Herm karina form: INJ, Q2H, PRN Pain, Start date: 02/23/13 13:57:00, Duration: 30 day, Stop date: 03/25/13 13:56:00 ipratropium 2012-0 No Liana 0.5 mg, Memoria 8-30 Ahmed 2.5 mL, l 18:06: Badar Route: Jesús NEB, Drug form: SOLN, Q4H, Dosing Weight 65, kg, PRN Respirator y Protocol, Start date: 02/23/13 13:06:00, Duration: 30 day, Stop date: 03/25/13 13:05:00 ipratropium 2013-0 No Liana 0.5 mg, Memoria 8-30 Ahmed 2.5 mL, l 18:06: Badar Route: Jesús NEB, Drug form: SOLN, Q4H, Dosing Weight 65, kg, PRN Respirator y Protocol, Start date: 02/23/13 13:06:00, Duration: 30 day, Stop date: 03/25/13 13:05:00 Xopenex 2013-0 No Liana 1.25 mg, 3 M emoria 8-30 Ahmed mL, Route: l 18:05: Badar NEB, Drug Jesús 00 form: SOLN, RQ8H, Dosing Weight 65, kg, Start date: 02/23/13 13:05:00, Duration: 30 day, Stop date: 03/25/13 7:00:00 Ativan 2012-0 No Liana 1 mg, 0.5 Mem oria 8-30 Ahmed mL, Route: l 18:05: Badar IV, Drug Jesús 00 form: INJ, Q3H, Dosing Weight 65, kg, PRN Anxiety, Start date: 02/23/13 13:05:00, Duration: 30 day, Stop date: 03/25/13 13:04:00 Xopenex 2012-0 No Liana 1.25 mg, 3 M emoria 8-30 Ahmed mL, Route: l 18:05: Badar NEB, Drug Conklin 00 form: SOLN, RQ8H, Dosing Weight 65, kg, Start date: 02/23/13 13:05:00, Duration: 30 day, Stop date: 03/25/13 7:00:00 Ativan 2012-0 No Liana 1 mg, 0.5 Mem oria 8-30 Ahmed mL, Route: l 18:05: Badar IV, Drug Jesús 00 form: INJ, Q3H, Dosing Weight 65, kg, PRN Anxiety, Start date: 02/23/13 13:05:00, Duration: 30 day, Stop date: 03/25/13 13:04:00 Lopressor 2012-0 No Jeff 2.5 mg, Mem oria 8-30 Barbara 2.5 mL, l 14:00: Jr Route: IV, Jesús 00 Drug form: INJ, Q12H, Start date: 02/23/13 9:00:00, Duration: 30 day, Stop date: 03/24/13 21:00:00 Lopressor 2012-0 No Jeff 2.5 mg, Mem oria 8-30 Barbara 2.5 mL, l 14:00: Jr Route: IV, Conklin 00 Drug form: INJ, Q12H, Start date: 02/23/13 9:00:00, Duration: 30 day, Stop date: 03/24/13 21:00:00 albumin 2013-0 No Ike 25 gm, 100 M emoria human 8-30 Danny mL, Route: l 11:01: Silverio IV, Drug Herm karina 00 form: INJ, ONCE, Start date: 02/23/13 6:01:00, Stop date: 02/23/13 6:01:00 albumin 2012-0 No Ike 25 gm, 100 M emoria human 8-30 Danny mL, Route: l 11:01: Silverio IV, Drug Herm karina 00 form: INJ, ONCE, Start date: 02/23/13 6:01:00, Stop date: 02/23/13 6:01:00 Lasix 2012-0 No Ike 20 mg, 2 Memor ia 8-30 Danny mL, Route: l 04:32: Silverio IV, Drug Herm karina 00 form: INJ, ONCE, Start date: 02/22/13 23:32:00, Stop date: 02/22/13 23:32:00 Lasix 2012-0 No Ike 20 mg, 2 Memor ia 8-30 Danny mL, Route: l 04:32: Silverio IV, Drug Herm karina 00 form: INJ, ONCE, Start date: 02/22/13 23:32:00, Stop date: 02/22/13 23:32:00 albumin 2012-0 No Ike 12.5 gm, Mem oria human 5% 8-30 Danny 250 mL, l intravenous 03:00: Silverio Route: IV, Conklin solution 00 Drug form: INJ, ONCE, Start date: 02/22/13 22:00:00, Stop date: 02/22/13 22:00:00 Sodium 2012-0 No Ike IV, 0 Memoria Chloride 8-30 Danny ml/hr, l 0.9% IV 03:00: Silverio PRN, PRN H ermann 00 See Nurse's Notes, Start date: 02/22/13 22:00:00, 250 ml albumin 2012-0 No Ike 12.5 gm, Mem oria human 5% 8-30 Danny 250 mL, l intravenous 03:00: Silverio Route: IV, Jesús solution 00 Drug form: INJ, ONCE, Start date: 02/22/13 22:00:00, Stop date: 02/22/13 22:00:00 Sodium 2012-0 No Ike IV, 0 Memoria Chloride 8-30 Danny ml/hr, l 0.9% IV 03:00: Silverio PRN, PRN H ermann 00 See Nurse's Notes, Start date: 02/22/13 22:00:00, 250 ml Lovenox 2013-0 No Liana 40 mg, 0.4 M emoria 02-22 Ahmed mL, Route: l 23:00: Badar SUB-Q, Conklin 00 Drug form: INJ, [id number], Start date: 02/22/13 18:00:00, Duration: 30 day, Stop date: 03/23/13 18:00:00 Lovenox 2012-0 No Liana 40 mg, 0.4 M emoria 02-22 Ahmed mL, Route: l 23:00: Badar SUB-Q, Jesús 00 Drug form: INJ, [id number], Start date: 02/22/13 18:00:00, Duration: 30 day, Stop date: 03/23/13 18:00:00 vancomycin 2012-0 No Liana 1.25 gm, Memoria + Dextrose 02-22 Ahmed Route: l 5% in Water 18:00: Badar IVPB, Drug Conklin IV 250 mL 00 form: INJ, [id number], Dosing Weight 65, kg, Start date: 02/22/13 13:00:00, Stop date: 03/24/13 1:00:00 vancomycin 2012-0 No Liana 1.25 gm, Memoria + Dextrose 02-22 Ahmed Route: l 5% in Water 18:00: Badar IVPB, Drug Conklin IV 250 mL 00 form: INJ, [id number], Dosing Weight 65, kg, Start date: 02/22/13 13:00:00, Stop date: 03/24/13 1:00:00 fentanyl 2012-0 No Nancy-Ye 250 mL, Mem oria 1,250 02-22 Irlanda Sameer Rate: l microgram 17:18: Titrate, Herm karina Dosing Weight 65, kg, Route: IV, Total Volume: 250, Duration: 30 day, Stop date: 03/24/13 12:17:00, Replace Every: 24 hr fentanyl 2012-0 No Nancy-Ye 250 mL, Mem oria 1,250 02-22 Irlanda Sameer Rate: l microgram 17:18: Titrate, Herm karina Dosing Weight 65, kg, Route: IV, Total Volume: 250, Duration: 30 day, Stop date: 03/24/13 12:17:00, Replace Every: 24 hr sodium 2012-0 No Liana 10 mmol, Hossein diana phosphate + 8-29 Ahmed 3.33 mL, l Sodium 17:09: Badar Route: Conklin Chloride 00 IVPB, 0.9% IV 250 ONCE, mL Dosing Weight 65, kg, PRN Abnormal Lab Result, Start date: 02/22/13 12:09:00, Stop date: 03/24/13 12:08:00 sodium 2012-0 No Liana 10 mmol, Hossein diana phosphate + 02-22 Ahmed 3.33 mL, l Sodium 17:09: Badar Route: Jesús Chloride 00 IVPB, 0.9% IV 250 ONCE, mL Dosing Weight 65, kg, PRN Abnormal Lab Result, Start date: 02/22/13 12:09:00, Stop date: 03/24/13 12:08:00 Lovenox 2012-0 No Liana 70 mg, 0.7 M emoria -29 Ahmed mL, Route: l 17:08: Badar SUB-Q, Conklin 00 Drug form: INJ, [id number], Dosing Weight 65, kg, Priority: NOW, Start date: 02/22/13 12:08:00, Duration: 30 day, Stop date: 03/24/13 0:08:00 Lovenox 2012-0 No Liana 70 mg, 0.7 M emoria - Ahmed mL, Route: l 17:08: Badar SUB-Q, Jesús 00 Drug form: INJ, [id number], Dosing Weight 65, kg, Priority: NOW, Start date: 02/22/13 12:08:00, Duration: 30 day, Stop date: 03/24/13 0:08:00 Zosyn + 2012-0 No Liana 3.375 gm, Me moria Dextrose 5% 02-22 Ahmed Route: l in Water IV 17:07: Rob IVPB, Drug Jesús 100 mL 00 form: PDR/INJ, [id number], Dosing Weight 65, kg, CrCl >= 20 ml/min infuse over 4 hours, Priority: NOW, Start date: 02/22/13 12:07:00, Stop date: 03/24/13 4:07:00 Zosyn + 2012-0 No Liana 3.375 gm, Me moria Dextrose 5% 02-22 Ahmed Route: l in Water IV 17:07: Badar IVPB, Drug Conklin 100 mL 00 form: PDR/INJ, [id number], Dosing Weight 65, kg, CrCl >= 20 ml/min infuse over 4 hours, Priority: NOW, Start date: 02/22/13 12:07:00, Stop date: 03/24/13 4:07:00 Norvasc No Jeff 5 mg, 1 Memor ia 8-29 Barbara tab, l 16:24: Jr Route: PO, Conklin 00 Drug form: TAB, Daily, Start date: 02/22/13 11:24:00, Duration: 30 day, Stop date: 03/24/13 9:00:00 Norvasc No Jeff 5 mg, 1 Memor ia 8-29 Barbara tab, l 16:24: Jr Route: PO, Jesús Drug form: TAB, Daily, Start date: 02/22/13 11:24:00, Duration: 30 day, Stop date: 03/24/13 9:00:00 aspirin No Ike 81 mg, 1 Mem oria - Danny tab, l 14:00: Silverio Route: PO, He rmann Drug form: CHEWTAB, Daily, Dosing Weight 65, kg, Start date: 02/22/13 9:00:00, Duration: 30 day, Stop date: 03/23/13 9:00:00 Fish Oil No Ike Route: PO, Memoria 8-29 Danny BID, l 14:00: Silverio Dosing Kishore n Weight 65, kg, Start date: 02/22/13 9:00:00, Duration: 30 day, Stop date: 03/23/13 17:00:00 levothyroxi No Ike 50 Mem oria ne 8- Danny microgram, l 14:00: Silverio 1 tab, Kishore n 00 Route: PO, Drug form: TAB, Daily, Dosing Weight 65, kg, Start date: 02/22/13 9:00:00, Duration: 30 day, Stop date: 03/23/13 9:00:00 dipyridamol No Ike 75 mg, 1 Memoria e 8-29 Danny tab, l 14:00: Silverio Route: PO, He rm Drug form: TAB, BID, Dosing Weight 65, kg, Start date: 02/22/13 9:00:00, Duration: 30 day, Stop date: 03/23/13 17:00:00 Vitamin C 2012-0 No Ike Route: PO, Memoria 8-29 Danny BID, l 14:00: Silverio Dosing Kishore n Weight 65, kg, Start date: 02/22/13 9:00:00, Duration: 30 day, Stop date: 03/23/13 17:00:00 clopidogrel 2012-0 No Ike 75 mg, 1 Memoria 8-29 Danny tab, l 14:00: Silverio Route: PO, rm Drug form: TAB, Daily, Dosing Weight 65, kg, Start date: 02/22/13 9:00:00, Duration: 30 day, Stop date: 03/23/13 9:00:00 cilostazol 2012-0 No Ike 100 mg, 2 Memoria 8- Danny tab, l 14:00: Silverio Route: PO, rm Drug form: TAB, BID, Dosing Weight 65, kg, Start date: 02/22/13 9:00:00, Duration: 30 day, Stop date: 03/23/13 17:00:00 alendronate 2012-0 No Ike 10 mg, 1 Memoria -29 Danny tab, l 14:00: Silverio Route: PO, rm Drug form: TAB, Daily, Dosing Weight 65, kg, Start date: 02/22/13 9:00:00, Duration: 30 day, Stop date: 03/23/13 9:00:00 aspirin 2012-0 No Ike 81 mg, 1 Mem oria 8-29 Danny tab, l 14:00: Silverio Route: PO, rm Drug form: CHEWTAB, Daily, Dosing Weight 65, kg, Start date: 02/22/13 9:00:00, Duration: 30 day, Stop date: 03/23/13 9:00:00 Fish Oil 2012-0 No Ike Route: PO, Memoria 8-29 Danny BID, l 14:00: Silverio Dosing Kishore n Weight 65, kg, Start date: 02/22/13 9:00:00, Duration: 30 day, Stop date: 03/23/13 17:00:00 levothyroxi 2012-0 No Ike 50 Mem oria ne - Danny microgram, l 14:00: Silverio 1 tab, Kishore n 00 Route: PO, Drug form: TAB, Daily, Dosing Weight 65, kg, Start date: 02/22/13 9:00:00, Duration: 30 day, Stop date: 03/23/13 9:00:00 dipyridamol 2012-0 No Ike 75 mg, 1 Memoria e - Danny tab, l 14:00: Silverio Route: PO, rmann Drug form: TAB, BID, Dosing Weight 65, kg, Start date: 02/22/13 9:00:00, Duration: 30 day, Stop date: 03/23/13 17:00:00 Vitamin C 2012-0 No Ike Route: PO, Memoria - Danny BID, l 14:00: Silverio Dosing Kishore n 00 Weight 65, kg, Start date: 02/22/13 9:00:00, Duration: 30 day, Stop date: 03/23/13 17:00:00 clopidogrel 2012-0 No Ike 75 mg, 1 Memoria - Danny tab, l 14:00: Silverio Route: PO, He rmann 00 Drug form: TAB, Daily, Dosing Weight 65, kg, Start date: 02/22/13 9:00:00, Duration: 30 day, Stop date: 03/23/13 9:00:00 cilostazol 2012-0 No Ike 100 mg, 2 Memoria - Danny tab, l 14:00: Silverio Route: PO, He rmann Drug form: TAB, BID, Dosing Weight 65, kg, Start date: 02/22/13 9:00:00, Duration: 30 day, Stop date: 03/23/13 17:00:00 alendronate 2012-0 No Ike 10 mg, 1 Memoria -29 Danny tab, l 14:00: Silverio Route: PO, He rmann 00 Drug form: TAB, Daily, Dosing Weight 65, kg, Start date: 02/22/13 9:00:00, Duration: 30 day, Stop date: 03/23/13 9:00:00 Zinacef + 2012-0 No Liana 1.5 gm, Me moria Sodium 02-22 Ahmed Route: l Chloride 05:00: Badar IVPB, Conklin 0.9% IV 100 00 [id number], mL Start date: 02/22/13 0:00:00, Duration: 1 day, Stop date: 02/22/13 16:00:00 chlorhexidi 0 No Ike 15 mL, M emoria ne topical 02-22 Danny Route: l 0.12% 05:00: Silverio S&SPIT, Herm karina liquid 00 Q6H, Drug form: LIQ, Start date: 02/22/13 0:00:00, Duration: 30 day, Stop date: 03/23/13 18:00:00 Pulmicort 2012-0 No Ike 0.5 mg, 2 Memoria Respules 02-22 Danny mL, Route: l 05:00: Silverio SANCHEZ, Drug Her mckee 00 form: SOLN, Q6H, Start date: 02/22/13 0:00:00, Duration: 30 day, Stop date: 03/23/13 18:00:00 DuoNeb 2012-0 No Liana 3 mL, Memoria inhalation 02-22 Ahmed Route: l solution 05:00: Rob SANCHEZ, Drug Her mckee 00 Form: SOLN, Q6H, Start date: 02/22/13 0:00:00, Duration: 30 day, Stop date: 03/23/13 18:00:00 Zinacef + 2012-0 No Liana 1.5 gm, Me moria Sodium 02-22 Ahmed Route: l Chloride 05:00: Badar IVPB, Jesús 0.9% IV 100 00 [id number], mL Start date: 02/22/13 0:00:00, Duration: 1 day, Stop date: 02/22/13 16:00:00 chlorhexidi 2012-0 No Ike 15 mL, M emoria ne topical 02-22 Danny Route: l 0.12% 05:00: Silverio S&SPIT, Herm karina liquid 00 Q6H, Drug form: LIQ, Start date: 02/22/13 0:00:00, Duration: 30 day, Stop date: 03/23/13 18:00:00 Pulmicort No Ike 0.5 mg, 2 Memoria Respules 02-22 Danny mL, Route: l 05:00: Silverio NEB, Drug Her mckee 00 form: SOLN, Q6H, Start date: 02/22/13 0:00:00, Duration: 30 day, Stop date: 03/23/13 18:00:00 DuoNeb No Liana 3 mL, Memoria inhalation 02-22 Ahmed Route: l solution 05:00: Badar NEB, Drug Her mckee 00 Form: SOLN, Q6H, Start date: 02/22/13 0:00:00, Duration: 30 day, Stop date: 03/23/13 18:00:00 propofol 10 No Ilana IV, Start Memoria mg/ml 02-22 Ahmed date: l (titrate) 03:29: Badar 02/21/13 Her mckee 1,000 mg 00 22:29:00, Duration: 30, 100 ml, 65 propofol 10 No Liana IV, Start Memoria mg/ml 02-22 Ahmed date: l (titrate) 03:29: Badar 02/21/13 Her mckee 1,000 mg 00 22:29:00, Duration: 30, 100 ml, 65 Sublimaze No Liana 25 Memor ia 02-22 Ahmed microgram, l 02:46: Badar 0.5 mL, Jesús 00 Route: IV, Drug form: INJ, Q1H, PRN Pain, Start date: 02/21/13 21:46:00, Duration: 30 day, Stop date: 03/23/13 21:45:00 Sublimaze No Liana 25 Memor ia 02-22 Ahmed microgram, l 02:46: Badar 0.5 mL, Conklin 00 Route: IV, Drug form: INJ, Q1H, PRN Pain, Start date: 02/21/13 21:46:00, Duration: 30 day, Stop date: 03/23/13 21:45:00 Dextrose No Devan 50 mL, Mem oria 50% in 02-22 A. Loyd Route: l Water IV 02:43: IVP, Start Her mckee 00 date: 02/21/13 21:43:00, Duration: 30 day, Stop date: 03/23/13 21:42:00, PRN Blood Glucose Results Dextrose 2012- No Devan 50 mL, Mem oria 50% in 02-22 A. Evert Route: l Water IV 02:43: IVP, Start Her mckee date: 02/21/13 21:43:00, Duration: 30 day, Stop date: 03/23/13 21:42:00, PRN Blood Glucose Results Insulin No Devan 99 mL, Hossein diana regular 100 02-22. Evert Rate: l unit + 02:42: titrate, Jesús Sodium 00 Route: IV, Chloride Dosing 0.9% IV 99 Weight 65 mL kg, Total Volume: 100, Start date: 02/21/13 21:42:00, Duration: 30 day, Stop date: 03/23/13 21:41:00 Insulin No Devan 99 mL, Hossein diana regular 100 02-22. Evert Rate: l unit + 02:42: titrate, Jesús Sodium 00 Route: IV, Chloride Dosing 0.9% IV 99 Weight 65 mL kg, Total Volume: 100, Start date: 02/21/13 21:42:00, Duration: 30 day, Stop date: 03/23/13 21:41:00 simvastatin 2012- No Ike 10 mg, 1 Memoria 02-22 Danny tab, l 02:00: Silverio Route: PO, He rm Drug form: TAB, Bedtime, Dosing Weight 65, kg, Start date: 02/21/13 21:00:00, Duration: 30 day, Stop date: 03/22/13 21:00:00 Protonix No Franky 40 mg, Memor ia 02-22 Route: l 02:00: IVP, Drug Conklin 00 form: INJ, Before Dinner, Start date: 02/21/13 21:00:00, Duration: 30 day, Stop date: 03/23/13 16:30:00 simvastatin 2012- No Ike 10 mg, 1 Memoria 02-22 Danny tab, l 02:00: Silverio Route: PO, He rm Drug form: TAB, Bedtime, Dosing Weight 65, kg, Start date: 02/21/13 21:00:00, Duration: 30 day, Stop date: 03/22/13 21:00:00 Protonix No Franky 40 mg, Memor ia 02-22 Route: l 02:00: IVP, Drug Conklin 00 form: INJ, Before Dinner, Start date: 02/21/13 21:00:00, Duration: 30 day, Stop date: 03/23/13 16:30:00 Sublimaze No Franky 25 Memori a 02-22s microgram, l 01:06: 0.5 mL, Conklin 00 Route: IV, Drug form: INJ, ONCE, Start date: 02/21/13 20:06:00, Stop date: 02/21/13 20:06:00 Sublimaze No Franky 25 Memori a 02-22s microgram, l 01:06: 0.5 mL, Conklin 00 Route: IV, Drug form: INJ, ONCE, Start date: 02/21/13 20:06:00, Stop date: 02/21/13 20:06:00 acetaminoph No Ike Route: PO, Memoria en 02-21 Danny Drug form: l 23:16: Silverio TAB, Q4H, Her mckee 00 Dosing Weight 65, kg, PRN Pain/Fever , Start date: 02/21/13 18:16:00, Stop date: 03/23/13 18:15:00, as needed for pain or fever acetaminoph No Ike Route: PO, Memoria en 02-21 Danny Drug form: l 23:16: Silverio TAB, Q4H, Her mckee 00 Dosing Weight 65, kg, PRN Pain/Fever , Start date: 02/21/13 18:16:00, Stop date: 03/23/13 18:15:00, as needed for pain or fever Xopenex No Ike 1.25 mg, 3 M emoria 02-21 Danny mL, Route: l 23:00: Silverio NEB, Drug Her mckee 00 form: SOLN, ONCALL, Start date: 02/21/13 18:00:00, Duration: 1 day, Stop date: 02/22/13 17:59:00 Xopenex 2013-0 No Ike 1.25 mg, 3 M emoria 02-21 Danny mL, Route: l 23:00: Silverio SANCHEZ, Drug Her mckee 00 form: LUKE, REFUGIO, Start date: 02/21/13 18:00:00, Duration: 1 day, Stop date: 02/22/13 17:59:00 Cordarone 2012-0 No Nancy-Ye 482 mL, Me moria 900 mg + 02-21 Irlanda Estrella Rate: l Dextrose 5% 22:54: titrate, He rmann in Water IV 00 Route: IV, 482 mL Dosing Weight 65 kg, Total Volume: 500, Start date: 02/21/13 17:54:00, Duration: 30 day, Stop date: 03/23/13 17:53:00 Cordarone + 0 No Franky 150 mg, 3 Memoria Dextrose 5% 02-21 Avendaño mL, Route: l in Water IV 22:54: IV, PRN, He rmann 100 mL 00 PRN See Nurse's Notes, Start date: 02/21/13 17:54:00, Duration: 30 day, Stop date: 03/23/13 17:53:00 milrinone 2012-0 No Nancy-Ye IV, Start Memoria in D5W 02-21 Irlanda Estrella date: l Premix 20 22:54: 02/21/13 Herm karina mg 00 17:54:00, Duration: 30, 100 ml, 65 Cordarone No Nancy-Ye 482 mL, Me moria 900 mg + 02-21 Irlanda Estrella Rate: l Dextrose 5% 22:54: titrate, He rmann in Water IV 00 Route: IV, 482 mL Dosing Weight 65 kg, Total Volume: 500, Start date: 02/21/13 17:54:00, Duration: 30 day, Stop date: 03/23/13 17:53:00 Cordarone + 2012-0 No Franky 150 mg, 3 Memoria Dextrose 5% 02-21 Avendaño mL, Route: l in Water IV 22:54: IV, PRN, He rmann 100 mL 00 PRN See Nurse's Notes, Start date: 02/21/13 17:54:00, Duration: 30 day, Stop date: 03/23/13 17:53:00 milrinone No Nancy-Ye IV, Start Memoria in D5W 02-21 Irlanda Sameer date: l Premix 20 22:54: 02/21/13 Herm karina mg 00 17:54:00, Duration: 30, 100 ml, 65 DOBUTamine No Nancy-Ye IV, Start Memoria in D5W 02-21 Irlanda Sameer date: l Premix 22:53: 02/21/13 Conklin 1,000 mg 00 17:53:00, Duration: 30, 250 ml, 65 epinephrine No Nancy-Ye 250 mL, Memoria 5 mg + 02-21 Irlanda Sameer Rate: l Dextrose 5% 22:53: titrate, He rmann in Water IV 00 Route: IV, 250 mL Dosing Weight 65 kg, Total Volume: 255, Start date: 02/21/13 17:53:00, Duration: 30 day, Stop date: 03/23/13 17:52:00 DOPamine in No Ike 800 mg, Memoria D5W Premix 02-21 Danny 250 mL, l 800 mg 22:53: Silverio Rate: Lilian nn 00 titrate, Dosing Weight 65, kg, Route: IV, Total Volume: 250, Start date: 02/21/13 17:53:00, Duration: 30 day, Stop date: 03/23/13 17:52:00, Replace Every: 24 hr nitroglycer No Nancy-Ye 50 mg, 125 Memoria in 50 mg 02-21 Irlanda Sameer mL, Route: l 22:53: IV, Drug Jesús 00 form: INJ, Dosing Weight 65, kg, Start date: 02/21/13 17:53:00, Duration: 30 day, Stop date: 03/23/13 17:52:00 Nitropress No Nancy-Ye 250 mL, M emoria 50 mg + 02-21 Irlanda Sameer Rate: l Dextrose 5% 22:53: titrate, He rmann in Water IV 00 Route: IV, 250 mL Dosing Weight 65 kg, Total Volume: 252, Start date: 02/21/13 17:53:00, Duration: 30 day, Stop date: 03/23/13 17:52:00 niCARdipine No Nancy-Ye IV, Start Memoria 02-21 Irlanda Sameer date: l 22:53: 02/21/13 Jesús 00 17:53:00, 200 ml, 65 DOBUTamine No Nancy-Ye IV, Start Memoria in D5W 02-21 Irlanda Sameer date: l Premix 22:53: 02/21/13 Jesús 1,000 mg 00 17:53:00, Duration: 30, 250 ml, 65 epinephrine No Nancy-Ye 250 mL, Memoria 5 mg + 02-21 Irlanda Sameer Rate: l Dextrose 5% 22:53: titrate, He rmann in Water IV 00 Route: IV, 250 mL Dosing Weight 65 kg, Total Volume: 255, Start date: 02/21/13 17:53:00, Duration: 30 day, Stop date: 03/23/13 17:52:00 DOPamine in No Ike 800 mg, Memoria D5W Premix 02-21 Danny 250 mL, l 800 mg 22:53: Silverio Rate: Lilian nn 00 titrate, Dosing Weight 65, kg, Route: IV, Total Volume: 250, Start date: 02/21/13 17:53:00, Duration: 30 day, Stop date: 03/23/13 17:52:00, Replace Every: 24 hr nitroglycer No Nancy-Ye 50 mg, 125 Memoria in 50 mg 02-21 Irlanda Sameer mL, Route: l 22:53: IV, Drug Jesús 00 form: INJ, Dosing Weight 65, kg, Start date: 02/21/13 17:53:00, Duration: 30 day, Stop date: 03/23/13 17:52:00 Nitropress No Nancy-Ye 250 mL, M emoria 50 mg + 02-21 Irlanda Sameer Rate: l Dextrose 5% 22:53: titrate, He rmann in Water IV 00 Route: IV, 250 mL Dosing Weight 65 kg, Total Volume: 252, Start date: 02/21/13 17:53:00, Duration: 30 day, Stop date: 03/23/13 17:52:00 niCARdipine No Nancy-Ye IV, Start Memoria 02-21 Irlanda Sameer date: l 22:53: 02/21/13 Conklin 00 17:53:00, 200 ml, 65 Dulcolax 2012-0 No Ike 10 mg, 1 Me moria Laxative 02-21 Danny supp, l 22:52: Silverio Route: ND, He rm Drug form: SUPP, Daily, PRN Constipati on, Start date: 02/21/13 17:52:00, Duration: 30 day, Stop date: 03/23/13 17:51:00 Zofran 2012-0 No Ike 8 mg, 4 Memor ia 02-21 Danny mL, Route: l 22:52: Silverio IVP, Drug Her mckee form: INJ, Q8H, PRN Nausea, Start date: 02/21/13 17:52:00, Duration: 30 day, Stop date: 03/23/13 17:51:00 Vistaril 2012- No Frakny 25 mg, 0.5 M emoria 02-21 Avendaño mL, Route: l 22:52: IM, Drug Jesús 00 form: INJ, Q3H, PRN Pain, Start date: 02/21/13 17:52:00, Duration: 30 day, Stop date: 03/23/13 17:51:00 morphine 2012-0 No Liana 8 mg, 1 Mem oria Sulfate 02-21 Ahmed mL, Route: l 22:52: Badar IM, Drug Jesús 00 form: INJ, Q3H, PRN Pain Score 7-10, Start date: 02/21/13 17:52:00, Duration: 30 day, Stop date: 03/23/13 17:51:00 acetaminoph 0 No Ike 2 tab, M emoria en-hydrocod 02-21 Danny Route: PO, l one 325 22:52: Silverio Drug Form: Conklin mg-5 mg 00 TAB, Q3H, oral tablet PRN Pain Score 4-6, Start date: 02/21/13 17:52:00, Duration: 30 day, Stop date: 03/23/13 17:51:00 tramadol 50 2012-0 No Ike 50 mg, 1 Memoria mg oral 02-21 Danny tab, l tablet 22:52: Silverio Route: PO, Conklin Drug form: TAB, Q6H, PRN Pain Score 4-6, Start date: 02/21/13 17:52:00, Duration: 30 day, Stop date: 03/23/13 17:51:00 Dulcolax 2012-0 No Ike 10 mg, 1 Me moria Laxative 02-21 Danny supp, l 22:52: Silverio Route: ND, He rmann 00 Drug form: SUPP, Daily, PRN Constipati on, Start date: 02/21/13 17:52:00, Duration: 30 day, Stop date: 03/23/13 17:51:00 Zofran 2012-0 No Ike 8 mg, 4 Memor ia 02-21 Danny mL, Route: l 22:52: Silverio IVP, Drug Her mckee form: INJ, Q8H, PRN Nausea, Start date: 02/21/13 17:52:00, Duration: 30 day, Stop date: 03/23/13 17:51:00 Vistaril 2012-0 No Franky 25 mg, 0.5 M emoria 02-21 Avendaño mL, Route: l 22:52: IM, Drug Conklin 00 form: INJ, Q3H, PRN Pain, Start date: 02/21/13 17:52:00, Duration: 30 day, Stop date: 03/23/13 17:51:00 morphine 2012-0 No Liana 8 mg, 1 Mem oria Sulfate 02-21 Ahmed mL, Route: l 22:52: Badar IM, Drug Conklin 00 form: INJ, Q3H, PRN Pain Score 7-10, Start date: 02/21/13 17:52:00, Duration: 30 day, Stop date: 03/23/13 17:51:00 acetaminoph 2012-0 No Ike 2 tab, M emoria en-hydrocod 02-21 Danny Route: PO, l one 325 22:52: Silverio Drug Form: Jesús mg-5 mg 00 TAB, Q3H, oral tablet PRN Pain Score 4-6, Start date: 02/21/13 17:52:00, Duration: 30 day, Stop date: 03/23/13 17:51:00 tramadol 50 2012-0 No Ike 50 mg, 1 Memoria mg oral 02-21 Danny tab, l tablet 22:52: Silverio Route: PO, Conklin 00 Drug form: TAB, Q6H, PRN Pain Score 4-6, Start date: 02/21/13 17:52:00, Duration: 30 day, Stop date: 03/23/13 17:51:00 morphine 2012-0 No Liana 2 mg, 1 Mem oria Sulfate 8-28 Ahmed mL, Route: l 22:51: Badar IV, Drug Jesús 00 form: INJ, Q1H, PRN Pain Score 4-6, Start date: 02/21/13 17:51:00, Duration: 30 day, Stop date: 03/23/13 17:50:00 Tylenol 2012-0 No Ike 650 mg, 1 Me moria 8-28 Danny supp, l 22:51: Silverio Route: ND, He rmann Drug form: SUPP, Q4H, PRN Fever, Start date: 02/21/13 17:51:00, Duration: 30 day, Stop date: 03/23/13 17:50:00 sodium 2012-0 No Franky 15 mmol, 5 Mem oria phosphate + 8-28 Avendaño mL, Route: l Sodium 22:51: IV, PRN, Jesús Chloride 00 PRN 0.9% IV 250 Abnormal mL Lab Result, Start date: 02/21/13 17:51:00, Duration: 30 day, Stop date: 03/23/13 17:50:00 potassium 2013-0 No Franky 15 mmol, 5 Memoria phosphate + 8-28 Avendaño mL, Route: l Sodium 22:51: IV, PRN, Jesús Chloride 00 PRN 0.9% IV 250 Abnormal mL Lab Result, Start date: 02/21/13 17:51:00, Duration: 30 day, Stop date: 03/23/13 17:50:00 morphine 2012-0 No Liana 2 mg, 1 Mem oria Sulfate 8-28 Ahmed mL, Route: l 22:51: Badar IV, Drug Conklin 00 form: INJ, Q1H, PRN Pain Score 4-6, Start date: 02/21/13 17:51:00, Duration: 30 day, Stop date: 03/23/13 17:50:00 Tylenol 2012-0 No Ike 650 mg, 1 Me moria 8-28 Danny supp, l 22:51: Silverio Route: ND, He rmann Drug form: SUPP, Q4H, PRN Fever, Start date: 02/21/13 17:51:00, Duration: 30 day, Stop date: 03/23/13 17:50:00 sodium 2012-0 No Franky 15 mmol, 5 Mem oria phosphate + 8-28 Avendaño mL, Route: l Sodium 22:51: IV, PRN, Jesús Chloride 00 PRN 0.9% IV 250 Abnormal mL Lab Result, Start date: 02/21/13 17:51:00, Duration: 30 day, Stop date: 03/23/13 17:50:00 potassium 2012-0 No Franky 15 mmol, 5 Memoria phosphate + 8-28 Avendaño mL, Route: l Sodium 22:51: IV, PRN, Conklin Chloride 00 PRN 0.9% IV 250 Abnormal mL Lab Result, Start date: 02/21/13 17:51:00, Duration: 30 day, Stop date: 03/23/13 17:50:00 calcium 2012-0 No Ike 2,000 mg, Me moria gluconate + 02-21 Danny 20 mL, l Sodium 22:50: Silverio Route: Herm karina Chloride 00 IVPB, PRN, 0.9% IV 100 PRN mL Abnormal Lab Result, Start date: 02/21/13 17:50:00, Duration: 30 day, Stop date: 03/23/13 17:49:00 magnesium 2012-0 No Franky 3 gm, 6 Mem oria sulfate + 8- Avendaño mL, Route: l Sodium 22:50: IVPB, PRN, Lilian nn Chloride 00 PRN 0.9% IV 50 Abnormal mL Lab Result, Start date: 02/21/13 17:50:00, Duration: 30 day, Stop date: 03/23/13 17:49:00 magnesium 2012-0 No Franky 50 mL, Hossein diana sulfate 02-21s Rate: 50 l 22:50: ml/hr, Jesús 00 Infuse over: 60 minutes, Route: IVPB, Total Volume: 50, Start date: 02/21/13 17:50:00, Duration: 30 day, Stop date: 03/23/13 17:49:00, PRN Abnormal Lab Result calcium 2012-0 No Ike 2,000 mg, Me moria gluconate + 02-21 Danny 20 mL, l Sodium 22:50: Silverio Route: Herm karina Chloride 00 IVPB, PRN, 0.9% IV 100 PRN mL Abnormal Lab Result, Start date: 02/21/13 17:50:00, Duration: 30 day, Stop date: 03/23/13 17:49:00 magnesium 2012-0 No Franky 3 gm, 6 Mem oria sulfate + 8- Avendaño mL, Route: l Sodium 22:50: IVPB, PRN, Lilian nn Chloride 00 PRN 0.9% IV 50 Abnormal mL Lab Result, Start date: 02/21/13 17:50:00, Duration: 30 day, Stop date: 03/23/13 17:49:00 magnesium 2012-0 No Franky 50 mL, Hossein diana sulfate 8- Rate: 50 l 22:50: ml/hr, Jesús 00 Infuse over: 60 minutes, Route: IVPB, Total Volume: 50, Start date: 02/21/13 17:50:00, Duration: 30 day, Stop date: 03/23/13 17:49:00, PRN Abnormal Lab Result potassium 2012- No Ike 20 mEq, Me moria chloride 8-28 Danny 100 mL, l 22:49: Silverio Route: Kishore n 00 IVPB, Drug form: INJ, PRN, PRN Abnormal Lab Result, Start date: 02/21/13 17:49:00, Duration: 30 day, Stop date: 03/23/13 17:48:00 potassium 2012-0 No Ike 20 mEq, Me moria chloride 8-28 Danny 100 mL, l 22:49: Silverio Route: Kishore n 00 IVPB, Drug form: INJ, PRN, PRN Abnormal Lab Result, Start date: 02/21/13 17:49:00, Duration: 30 day, Stop date: 03/23/13 17:48:00 morphine 2012-0 No Ike IV, Start M emoria Sulfate 30 8- Danny date: l mg 22:40: Silverio 02/21/13 Herm karina 00 17:40:00, Duration: 30, 30 ml, 65 morphine 2012-0 No Ike IV, Start M emoria Sulfate 30 8- Danny date: l mg 22:40: Silverio 02/21/13 Herm karina 00 17:40:00, Duration: 30, 30 ml, 65 D5W 1/2NS + 2012-0 No Ike 1,000 mL, Memoria KCL 20mEq/L - Danny Rate: 125 l 1000ml 22:38: Silverio ml/hr, Herm karina (Premix) 00 Infuse 1,000 mL over: 8 hr, Route: IV, Dosing Weight 65 kg, Total Volume: 1,000, Start date: 02/21/13 17:38:00, Stop date: 03/23/13 17:37:00 Sodium 2012-0 No Ike 250 mL, Memor ia Chloride 8- Danny Route: l 0.9% IV 22:38: Silverio IVPB, Herm karina 00 Start date: 02/21/13 17:38:00, Duration: 30 day, Stop date: 03/23/13 17:37:00, PRN Line Flush BD Normal 2012-0 No Ike 10 mL, Mem oria Saline - Danny Route: l Flush 22:38: Silverio IVP, Drug He rm Form: INJ, PRN, PRN Line Flush, Start date: 02/21/13 17:38:00, Duration: 30 day, Stop date: 03/23/13 17:37:00 D5W 1/2NS + 0 No Ike 1,000 mL, Memoria KCL 20mEq/L 02-21 Danny Rate: 125 l 1000ml 22:38: Silverio ml/hr, Herm karina (Premix) 00 Infuse 1,000 mL over: 8 hr, Route: IV, Dosing Weight 65 kg, Total Volume: 1,000, Start date: 02/21/13 17:38:00, Stop date: 03/23/13 17:37:00 Sodium 2012-0 No Ike 250 mL, Memor ia Chloride - Danny Route: l 0.9% IV 22:38: Silverio IVPB, Herm karina 00 Start date: 02/21/13 17:38:00, Duration: 30 day, Stop date: 03/23/13 17:37:00, PRN Line Flush BD Normal 2012-0 No Ike 10 mL, Mem oria Saline - Danny Route: l Flush 22:38: Silverio IVP, Drug He rm Form: INJ, PRN, PRN Line Flush, Start date: 02/21/13 17:38:00, Duration: 30 day, Stop date: 03/23/13 17:37:00 Vitamin C 2012- Yes 240MG, 1 Hossein diana 8-27 TAB, PO, l 18:47: BID, Jesús 03 Substituti on Allowed Vitamin C Yes 240MG, 1 Hossein diana 8-27 TAB, PO, l 18:47: BID, Jesús 03 Substituti on Allowed Fish Oil Yes 600mg, 1 Memor ia 8-27 tab, PO, l 18:45: BID, with Jesús 38 300mg OMEGA 2, Substituti on Allowedwit h 300mg OMEGA 2 Fish Oil Yes 600mg, 1 Memor ia 8-27 tab, PO, l 18:45: BID, with Jesús 38 300mg OMEGA 2, Substituti on Allowedwit h 300mg OMEGA 2 Calcium 600 Yes 1 tab, PO, Memoria +D oral 8-27 BID, l tablet 18:44: Substituti Lilian nn 57 on Allowed, Maintenanc e Calcium 600 Yes 1 tab, PO, Memoria +D oral 8-27 BID, l tablet 18:44: Substituti Lilian nn 57 on Allowed, Maintenanc e acetaminoph No 500mg, 2 Me moria en 8-27 tabs, PO, l 18:44: PRN, Jesús 02 Substituti on Allowed acetaminoph No 500mg, 2 Me moria en 8-27 tabs, PO, l 18:44: PRN, Jesús 02 Substituti on Allowed alendronate Yes 70 mg, 1 Me moria 70 mg oral 8-27 tab, PO, l tablet, 18:42: Jesús Pelayo effervescen 50 Substituti t on Allowed alendronate Yes 70 mg, 1 Me moria 70 mg oral 8-27 tab, PO, l tablet, 18:42: QMJesús hayes effervescen 50 Substituti t on Allowed Aspirin Low 2012- No 81 mg, 1 Me moria Dose 81 mg 8-27 tab, PO, l oral tablet 18:41: Daily, Tiarra collins 41 Substituti on Allowed Aspirin Low No 81 mg, 1 Me moria Dose 81 mg 8-27 tab, PO, l oral tablet 18:41: Daily, Herm karina 41 Substituti on Allowed levothyroxi No 50 Memori a ne 50 mcg 8-27 microgram, l (0.05 mg) 18:41: 1 tab, PO, He rmann oral tablet 14 Daily, before breakfast, 30 tab, Substituti on Allowed, TABbefore breakfast levothyroxi No 50 Memori a ne 50 mcg 8-27 microgram, l (0.05 mg) 18:41: 1 tab, PO, He rmann oral tablet 14 Daily, before breakfast, 30 tab, Substituti on Allowed, TABbefore breakfast clopidogrel 2012-0 Yes 75 mg, 1 Me moria 75 mg oral 8-27 tab, PO, l tablet 18:40: Daily, 30 Kishore n 08 tab, Substituti on Allowed, TAB clopidogrel 2012- Yes 75 mg, 1 Me moria 75 mg oral 8-27 tab, PO, l tablet 18:40: Daily, 30 Kishore n 08 tab, Substituti on Allowed, TAB simvastatin No 0, 1 tab, M emoria 10 mg oral 8-27 PO, l tablet 18:39: Bedtime, Jesús 49 30 tab, Substituti on Allowed simvastatin 0 No 0, 1 tab, M emoria 10 mg oral 8-27 PO, l tablet 18:39: Bedtime, Jesús 49 30 tab, Substituti on Allowed cilostazol 0 No 100 mg, 1 Me moria 100 mg oral 8-27 tab, PO, l tablet 18:39: BID, 180 Conklin 38 tab, Substituti on Allowed, TAB cilostazol 2012-0 No 100 mg, 1 Me moria 100 mg oral 8-27 tab, PO, l tablet 18:39: BID, 180 Jesús 38 tab, Substituti on Allowed, TAB dipyridamol 2012-0 No 75 mg, 1 Me moria e 75 mg 8-27 tab, PO, l oral tablet 18:38: BID, Kishore rubio 50 Substituti on Allowed dipyridamol 2012-0 No 75 mg, 1 Me moria e 75 mg 8-27 tab, PO, l oral tablet 18:38: BID, Kishore n 50 [employer] on Allowed Immunizations Ordered Immunization Filled Immunization Date Status Commen ts Source Name Name [id number] 2020-08-27 Completed Hossein rial [id number] 00:00:00 Herm karina WNQT-DyJ-[id number]-19mR 2020-08-27 Completed Hossein rial NABNT-[id number] 00:00:00 Herm karina TMQB-KrC-[id number]-19mR 2020-08-06 Completed Hossein rial NABNT-[id number] 00:00:00 Herm karina DCBS-AzJ-5EYMBE-19mR 2020-08-06 Completed Hossein rial NABNT-[id number] 00:00:00 Herm karina Vital Signs Vital Name Observation Time Observation Value Comments Source Respitory Rate 2021-01-14 17:00:00 [facility] Systolic (mm Hg) 2021-01-14 17:00:00 Hossein rial [place] Diastolic (mm Hg) 2021-01-14 17:00:00 Mem orial [place] Respitory Rate 2021-01-14 16:00:00 [facility] al [place] Systolic (mm Hg) 2021-01-14 16:00:00 Hossein rial Jesús Diastolic (mm Hg) 2021-01-14 16:00:00 Mem orial [place] Respitory Rate 2021-01-14 15:00:00 Memori al Jesús Systolic (mm Hg) 2021-01-14 15:00:00 Hossein rial [place] Diastolic (mm Hg) 2021-01-14 15:00:00 Mem orial Jesús Temperature Oral (F) 2021-01-13 12:20:[address] [facility] Height 2021-01-08 18:20:[address] [facility] Weight 2021-01-08 18:20:00 [facility] [place] BMI Calculated 2021-01-08 18:20:00 Memori al Jesús Heart Rate 2021-01-08 18:20:00 [facility] Respitory Rate 2020-10-29 17:00:00 Memori al Jesús Systolic (mm Hg) 2020-10-29 17:00:00 Hossein rial [place] Diastolic (mm Hg) 2020-10-29 17:00:00 Mem orial Jesús Respitory Rate 2020-10-29 16:00:00 [facility]ori al [place] Systolic (mm Hg) 2020-10-29 16:00:00 Hossein rial Jesús Diastolic (mm Hg) 2020-10-29 16:00:00 Mem orial Jesús Respitory Rate 2020-10-29 15:00:00 [facility] [place] Systolic (mm Hg) 2020-10-29 15:00:00 Hossein rial Jesús Diastolic (mm Hg) 2020-10-29 15:00:00 Mem orial Jesús Temperature Oral (F) 2020-10-28 14:24:00 97.5 F [facility] Height 2020-10-24 18:06:00 149.86 cm [facility] Weight 2020-10-24 18:06:00 [facility] BMI Calculated 2020-10-24 18:06:00 [facility] [place] Heart Rate 2020-10-24 18:06:00 [facility] Respitory Rate 2020-10-24 18:06:00 [facility] al Jesús Systolic (mm Hg) 2020-10-24 18:06:00 Hossein rial [place] Diastolic (mm Hg) 2020-10-24 18:06:00 Mem o[facility] [place] Height 2020-09-18 15:59:00 149.86 cm [facility] Weight 2020-09-18 15:59:00 [facility] BMI Calculated 2020-09-18 15:59:00 [facility] Height 2018-06-13 18:53:00 149.86 cm [facility] BMI Calculated 2018-06-13 18:53:00 [facility] Weight 2018-06-13 18:53:00 [facility] Respitory Rate 2017-11-18 19:45:00 [facility] [place] Systolic (mm Hg) 2017-11-18 19:45:00 Hossein rial Jesús Diastolic (mm Hg) 2017-11-18 19:45:00 Mem orial Jesús Heart Rate 2017-11-18 19:45:00 [facility] Systolic (mm Hg) 2017-11-18 15:40:00 Hossein rial Jesús Diastolic (mm Hg) 2017-11-18 15:40:00 Mem orial Jesús Heart Rate 2017-11-18 15:40:00 [facility] Respitory Rate 2017-11-18 15:40:00 Memori al Jesús Heart Rate 2017-11-18 12:00:00 [facility] Respitory Rate 2017-11-18 12:00:00 Memori al Jesús Systolic (mm Hg) 2017-11-18 12:00:00 Hossein rial [place] Diastolic (mm Hg) 2017-11-18 12:00:00 Mem orial [place] Weight 2017-11-18 10:00:00 [facility] Weight 2017-11-17 10:00:00 [facility] Height 2017-11-15 13:11:00 149.86 cm [facility] Height 2017-11-15 09:35:00 149.86 cm [facility] Height 2017-11-15 05:00:00 149.86 cm [facility] BMI Calculated 2017-11-14 14:18:00 [facility] [place] Weight 2017-11-14 14:18:00 [facility] Temperature Oral (F) 2017-11-14 14:15:00 97.5 F [facility] Height 2015-12-08 15:46:00 149.86 cm [facility] BMI Calculated 2015-12-08 15:46:00 [facility] Weight 2015-12-08 15:46:00 [facility] Respitory Rate 2014-02-10 20:25:00 [facility] Jesús Temperature Oral (F) 2014-02-10 17:00:00 98 F [facility] Systolic (mm Hg) 2014-02-10 17:00:00 Hossein rial [place] Diastolic (mm Hg) 2014-02-10 17:00:00 Mem orial [place] Respitory Rate 2014-02-10 17:00:00 [facility] [place] Heart Rate 2014-02-10 17:00:00 [facility] Temperature Oral (F) 2014-02-10 12:47:00 97.8 F [facility] Diastolic (mm Hg) 2014-02-10 12:47:00 Mem orial [place] Systolic (mm Hg) 2014-02-10 12:47:00 Hossein rial [place] Heart Rate 2014-02-10 12:47:00 [facility] Respitory Rate 2014-02-10 12:47:00 Memori al Jesús Diastolic (mm Hg) 2014-02-10 09:00:00 Mem orial [place] Systolic (mm Hg) 2014-02-10 09:00:00 Hossein rial [place] Heart Rate 2014-02-10 09:00:00 [facility] Temperature Oral (F) 2014-02-10 09:00:00 97.8 F [facility] Height 2014-02-01 14:50:00 149.86 cm [facility] BMI Calculated 2014-02-01 14:50:00 [facility] Weight 2014-02-01 14:50:00 [facility] Heart Rate 2013-03-02 17:23:00 [facility] Temperature Oral (F) 2013-03-02 17:23:00 98.4 F [facility] Systolic (mm Hg) 2013-03-02 17:23:00 Hossein rial [place] Diastolic (mm Hg) 2013-03-02 17:23:00 Mem orial Jesús Respitory Rate 2013-03-02 17:23:00 Memori al [place] Diastolic (mm Hg) 2013-03-02 13:07:00 Mem orial Jesús Systolic (mm Hg) 2013-03-02 13:07:00 Hossein rial [place] Respitory Rate 2013-03-02 13:07:00 [facility] al [place] Temperature Oral (F) 2013-03-02 13:07:00 98.0 F [facility] Heart Rate 2013-03-02 13:07:00 [facility] Weight 2013-03-02 10:19:00 [facility] Respitory Rate 2013-03-02 10:18:00 Mem[facility] al [place] Systolic (mm Hg) 2013-03-02 10:18:00 Hossein rial [place] Diastolic (mm Hg) 2013-03-02 10:18:00 Mem orial Jesús Temperature Oral (F) 2013-03-02 10:18:00 98.7 F [facility] Heart Rate 2013-03-02 10:18:00 [facility] Weight 2013-03-01 09:00:00 [facility] Height 2013-02-20 18:23:00 149.86 cm [facility] Weight 2013-02-20 18:23:00 [facility] Procedures Procedure Date / Time Performed Performing Clinician Sourc e Placement of stent, RIGHT 2012-06-02 06:00:00 Me morial Jesús GROIN<sup>1</sup> Placement of stent, RIGHT 2012-06-02 06:00:00 Me morial Jesús GROIN <sup>4</sup> Diagnostic arteriogram, 2004-11-12 05:00:00 Hossein rial [place] RENAL, CAROTID SUBCLAVIAN-SUBCLAVIAN GRAFT & RIGHT BRACHIAL Diagnostic arteriogram, 2004-11-12 05:00:00 Silvio Price Hossein rial [place] RENAL, CAROTID SUBCLAVIAN-SUBCLAVIAN GRAFT & RIGHT BRACHIAL Insertion of coronary 1995-07-07 06:00:00 Memori al Jesús artery stent, LEFT, ANGIOPLASTY Insertion of coronary 1995-07-07 06:00:00 Memori al [place] artery stent, LEFT, ANGIOPLASTY Angioplasty, RIGHT 1995-07-04 06:00:00 [facility] CORONARY Angioplasty, RIGHT 1995-07-04 06:00:00 [facility] CORONARY Subclavian-subclavian 1995-06-30 06:00:00 Memori al Jesús artery bypass graft with vein Subclavian-subclavian 1995-06-30 06:00:00 Memori al [place] artery bypass graft with vein Carotid endarterectomy, 1995-06-09 06:00:00 Hossein rial [place] RIGHT Carotid endarterectomy, 1995-06-09 06:00:00 Hossein rial Jesús RIGHT Miscellaneous 1995-06-06 06:00:00 [facility] rafi operations<sup>4</sup> Miscellaneous operations 1995-06-06 06:00:00 [facility] orial Jesús <sup>2</sup> Leg repair<sup>3</sup> [facility] Leg repair <sup>1</sup> [facility] Encounters Start End Encounter Admission Attending Care Care Encounter Source Date/Time Date/Time Type Type Clinicians Facility Department ID 2019-08-29 Outpatient SURI PRICE CAR [address] [facility] 15:17:49 SILVIO 2021-01-13 2021-01-14 Inpatient [facility] [id number] Fidelina 11:56:00 18:45:00 wilmer Carroll l [facility] 2021-01-13 2021-01-14 Inpatient nullFlavo [facility] [id number] Memoria 11:56:00 18:45:00 r Jesús 12 l [facility] 2021-01-13 2021-01-14 Outpatient Silverio, [facility] [id number] 06:56:00 13:45:00 Ike Carly Delgado 2021-01-13 2021-01-14 Inpatient U SILVERIO [facility] 75[address] [facility] 06:56:00 13:45:00 IKE 2021-01-08 2021-01-09 Outpt Diag nullFlavo [facility] [id number] Memoria 19:33:00 04:59:00 Services r Outpatient 07 l Imaging [facility] 2021-01-08 2021-01-09 Outpt Diag nullFlavo [facility] [id number] Memoria 19:33:00 04:59:00 Services r Outpatient 07 l [facility] 2021-01-08 2021-01-08 Outpatient Silverio, 2.16.840. 2.16.840.1 . [id number] 14:33:00 23:59:00 Ike [id number] Danny 3.615.36 5.36 2020-10-28 2020-10-29 Inpatient nullFlavo [facility] [id number] Memoria 10:55:00 19:00:[address] [facility] 2020-10-28 2020-10-29 Inpatient nullFlavo [facility] [id number] Memoria 10:55:00 19:00:[address] [facility] 2020-10-28 2020-10-29 Outpatient Silverio, [facility] [id number] 05:55:00 14:00:00 Ike Jules Danny 2020-10-28 2020-10-29 Inpatient SILVERIO [facility] 75[address] [facility] 05:55:00 14:00:00 IKE 2020-10-28 2020-10-28 Outpatient Silverio, [facility] [id number] 07:30:00 07:30:00 Ike Delgado 2020-10-24 2020-10-25 Outpt Diag nullFlavo [facility] [id number] Memoria 19:35:00 04:59:00 Services r Outpatient 06 l Imaging [facility] 2020-10-24 2020-10-25 Outpt Diag nullFlavo [facility] [id number] Memoria 19:35:00 04:59:00 Services r Outpatient 06 l Imaging [facility] 2020-10-24 2020-10-24 Outpatient Silverio, 2.16.840. 2.16.840.1 . [id number] 14:35:00 23:59:00 Ike [id number] 06 Danny 3.615.36 5.36 2020-09-18 2020-09-19 Outpatient nullFlavo [facility] [id number] Memoria 14:47:00 04:59:00 r Conklin 10 l [facility] 2020-09-18 2020-09-19 Outpatient nullFlavo [facility] [id number] Memoria 14:47:00 04:59:00 r Jesús 10 l [facility] 2020-09-18 2020-09-18 Outpatient Mangin, [facility] [id number] 09:47:00 23:59:00 Silvio L 10 2020-09-18 2020-09-18 Outpatient MANGIN, [facility] 75[address] [facility] 09:47:00 23:59:00 SILVIO 2018-06-13 2018-06-14 Outpatient nullFlavo [facility] [id number] Memoria 17:21:00 05:59:00 r Jesús 08 l [facility] 2018-06-13 2018-06-14 Outpatient nullFlavo [facility] [id number] Memoria 17:21:00 05:59:00 r Conklin 08 l [facility] 2018-06-13 2018-06-13 Outpatient Mangin, [facility] [id number] 11:21:00 23:59:00 Silvio L 08 2017-11-15 2017-11-18 Inpatient nullFlavo [facility] [id number] Memoria 12:16:00 22:45:00 r Jesús 07 l [facility] 2017-11-15 2017-11-18 Inpatient nullFlavo [facility] [id number] Memoria 12:16:00 22:45:[address] [facility] 2017-11-15 2017-11-18 Outpatient Goyo, [facility] [id number] 07:16:00 17:45:00 Hamlet Paulino 2017-11-04 2017-11-05 Outpatient nullFlavo [facility] [id number] Memoria 14:00:00 04:59:00 r Jesús 06 l [facility] 2017-11-04 2017-11-05 Outpatient nullFlavo [facility] [id number] Memoria 14:00:00 04:59:00 r Conklin 06 l [facility] 2017-11-04 2017-11-04 Outpatient Mangin, [facility] [id number] 09:00:00 23:59:00 Silvio L 06 2017-11-04 2017-11-04 Outpatient Mangin, [facility] [id number] 09:00:00 23:59:00 Silvio L 06 2015-12-08 2015-12-09 Outpatient nullFlavo [facility] [id number] Memoria 13:55:00 04:59:00 r Conklin 05 l [facility] 2015-12-08 2015-12-09 Outpatient nullFlavo [facility] [id number] Memoria 13:55:00 04:59:00 r Jesús 05 l [facility] 2015-12-08 2015-12-08 Outpatient Mangin, [facility] [id number] 08:55:00 23:59:00 Silvio L 05 2014-02-06 2014-02-10 Inpatient nullFlavo [facility] [id number] Memoria 10:56:00 20:45:00 r Conklin 04 l [facility] 2014-02-06 2014-02-10 Inpatient nullFlavo [facility] [id number] Memoria 10:56:00 20:45:[address] [facility] 2014-02-06 2014-02-10 Outpatient Delcid, 2.16.840. 2.16.840.1. 3 [id number] 05:56:00 15:45:00 Ervin [id number] 04 [facility] Ila 3.615.0.1 [id number] [id number] 6310-08-08 2014-02-02 Outpt Diag nullFlavo [facility] [id number] Memoria 14:54:00 04:59:00 Services r Outpatient 01 l [facility] 2014-02-01 2014-02-02 Outpt Diag nullFlavo [facility] [id number] Memoria 14:54:00 04:59:00 Services r Outpatient 01 l [facility] 2014-02-01 2014-02-01 Outpatient Silverio, 2.16.840. 2.16.840.1 . [id number] 09:54:00 23:59:00 Ike [id number] 01 Danny 3.615.0.1 [id number] [id number] 2770-06-16 2013-12-11 Outpatient nullFlavo [place] [id number] Memoria 18:00:00 04:59:[address] [facility] 2013-12-10 2013-12-11 Outpatient nullFlavo [place] [id number] Memoria 18:00:00 04:59:[address] [facility] 2013-12-10 2013-12-10 Outpatient Mangin, 2.16.840. 2.16.840.1. 3 [id number] 13:00:00 23:59:00 Silvio L [id number] [id number] [id number] 0839-05-15 2013-11-09 Outpatient nullFlavo [place] [id number] Memoria 12:00:00 04:59:[address] [facility] 2013-11-08 2013-11-09 Outpatient nullFlavo [place] [id number] Memoria 12:00:00 04:59:[address] [facility] 2013-11-08 2013-11-08 Outpatient Silverio, 2.16.840. 2.16.840.1 . [id number] 07:00:00 23:59:00 Ike [id number]. [id number] 02 Danny 3.615.0.1 [id number] 09 7891-08-28 2013-03-02 Inpatient nullFlavo [id number] Memoria 05:43:00 15:23:00 [facility] 2013-02-21 2013-03-02 Inpatient nullFlavo [id number] Memoria 05:43:00 15:23:00 r [facility] l Con[place] 2013-01-05 2013-01-05 Outpatient nullFlavo [id number] Memoria 08:00:00 08:00:00 r [facility] l [place] 2013-01-05 2013-01-05 Outpatient nullFlavo [id number] Memoria 08:00:00 08:00:00 r [facility] Results Test Description Test Time Test Comments Results Result Comments Source CHEM PANEL 2021-01-14 09:22:00 Test Item Value Reference Range Interpretation Comme nts Glucose Lvl (test code = Glucose Lvl) 93 70-99 [facility] [employer] [id number] 09:22:00 Test Item Value Reference Range Interpretation Comments BUN (test code = BUN) 22 7-22 [facility] [id number] 09:22:00 Test Item Value Reference Range Interpretation Comments Creatinine Lvl (test code = Creatinine 0.70 0.50-1.40 Lvl) [facility] [id number] 09:22:00 Test Item Value Reference Range Interpretation Comments Sodium Lvl (test code = Sodium Lvl) 137 135-145 [facility] [employer] [id number] 09:22:00 Test Item Value Reference Range Interpretation Comments Potassium Lvl (test code = Potassium 4.0 3.5-5.1 Lvl) [facility] [employer] [id number] 09:22:00 Test Item Value Reference Range Interpretation Comments Chloride Lvl (test code = Chloride Lvl) 106 95-109 [facility] [employer] [id number] 09:22:00 Test Item Value Reference Range Interpretation Comments CO2 (test code = CO2) 26 24-32 [facility] [employer] [id number] 09:22:00 Test Item Value Reference Range Interpretation Comments AGAP (test code = AGAP) 9.0 10.0-20.0 [facility] [employer] [id number] 09:22:00 Test Item Value Reference Range Interpretation Comments Calcium Lvl (test code = Calcium Lvl) 8.0 8.5-10.5 [facility] [employer] [id number] 09:22:00 Test Item Value Reference Range Interpretation Comments eGFR (test code = eGFR) 89 [facility]2021-07-21 09:22:00 Test Item Value Reference Range Interpretation Comments Magnesium Lvl (test code = Magnesium 2.2 1.8-2.4 Lvl) [place] [id number] 09:22:00 Test Item Value Reference Range Interpretation Comments Phosphorus (test code = Phosphorus) 3.3 2.5-4.5 [place] 605121-07-21 09:22:00 Test Item Value Reference Range Interpretation Comments PTT (test code = PTT) 31.9 s 22.9-35.8 [place] 605121-07-21 09:22:00 Test Item Value Reference Range Interpretation Comments PT (test code = PT) 14.0 s 12.0-14.7 [place] [address]-07-21 09:22:00 Test Item Value Reference Range Interpretation Comments INR (test code = INR) 1.09 1 0.85-1.17 [place] 605121-07-21 09:22:00 Test Item Value Reference Range Interpretation Comments WBC X 10x3 (test code = WBC X 10x3) 7.2 3.7-10.4 [place] 605121-07-21 09:22:00 Test Item Value Reference Range Interpretation Comments RBC X 10x6 (test code = RBC X 10x6) 3.44 4.20-5.40 [place] [address]-07-21 09:22:00 Test Item Value Reference Range Interpretation Comments Hgb (test code = Hgb) 10.9 12.0-16.0 [place] 605121-07-21 09:22:00 Test Item Value Reference Range Interpretation Comments Hct (test code = Hct) 31.9 36.0-48.0 [place] [address]-07-21 09:22:00 Test Item Value Reference Range Interpretation Comments MCV (test code = MCV) 92.7 80.0-98.0 [place] [address]-07-21 09:22:00 Test Item Value Reference Range Interpretation Comments MCH (test code = MCH) 31.6 pg 27.0-31.0 [place] [address]-07-21 09:22:00 Test Item Value Reference Range Interpretation Comments MCHC (test code = MCHC) 34.1 32.0-36.0 [facility] Al[id number] 09:22:00 Test Item Value Reference Range Interpretation Comments RDW (test code = RDW) 12.9 11.5-14.5 [facility] AllianceVkfnwqvNMFRMKQNYP9591-37-97 09:22:00 Test Item Value Reference Range Interpretation Comments Platelet (test code = Platelet) 220 133-450 [facility] AllianceTihtancXROCNAWUJO4082-26-42 09:22:00 Test Item Value Reference Range Interpretation Comments MPV (test code = MPV) 8.1 7.4-10.4 [facility] AllianceTxqeuvfUCRVKXNPDC1316-78-19 09:22:00 Test Item Value Reference Range Interpretation Comments Segs (test code = Segs) 76.8 45.0-75.0 [facility] AllianceAlqjeqgNKNKVPVPYW2391-10-11 09:22:00 Test Item Value Reference Range Interpretation Comments Lymphocytes (test code = Lymphocytes) 13.4 20.0-40.0 [facility] AllianceMosbpnrYPMRUEXUUZ9319-32-50 09:22:00 Test Item Value Reference Range Interpretation Comments Monocytes (test code = Monocytes) 5.8 2.0-12.0 [facility] AllianceWavxqwmSWVLAHPJLH1677-83-78 09:22:00 Test Item Value Reference Range Interpretation Comments Eosinophils (test code = 3.2 See_Comment [A utomated message] The Eosinophils) system which ge nerated this result tra nsmitted reference range : <=4.0. The reference r katie was not used to int erpret this result as normal/abnormal . [facility] AllianceYapobvdLOVLNRKIGW4536-04-57 09:22:00 Test Item Value Reference Range Interpretation Comments Basophils (test code = 0.8 See_Comment [Aut omated message] The Basophils) system which ge nerated this result tra nsmitted reference range : <=1.0. The reference r katie was not used to int erpret this result as normal/abnormal . [facility] AllianceKpcwjnjNPGZGWAYGC2349-29-84 09:22:00 Test Item Value Reference Range Interpretation Comments Neutrophils # (test code = Neutrophils 5.6 1.5-8.1 #) [facility] AllianceBskzaxpIUHYDIMCXZ1123-94-99 09:22:00 Test Item Value Reference Range Interpretation Comments Lymphocytes # (test code = Lymphocytes 1.0 1.0-5.5 #) [place] 605121-07-21 09:22:00 Test Item Value Reference Range Interpretation Comments Monocytes # (test code 0.4 See_Comment [Aut omated message] The = Monocytes #) system which generated this result tra nsmitted reference range : <=0.8. The reference r katie was not used to int erpret this result as normal/abnormal . [place] 605121-07-21 09:22:00 Test Item Value Reference Range Interpretation Comments Eosinophils # (test code 0.2 See_Comment [A utomated message] The = Eosinophils #) system whic h generated this result tra nsmitted reference range : <=0.5. The reference r katie was not used to int erpret this result as normal/abnormal . [place] 605121-07-21 09:22:00 Test Item Value Reference Range Interpretation Comments Basophils # (test code 0.1 See_Comment [Aut omated message] The = Basophils #) system which generated this result tra nsmitted reference range : <=0.2. The reference r katie was not used to int erpret this result as normal/abnormal . [facility]2021-07-21 09:22:00 Test Item Value Reference Range Interpretation Comments Ca Ion WB (test code = Ca Ion WB) 1.06 1.05-1.25 [facility] [id number] 09:22:00 Test Item Value Reference Range Interpretation Comments Glucose Lvl (test code = Glucose Lvl) 93 70-99 [facility] [id number] 09:22:00 Test Item Value Reference Range Interpretation Comments BUN (test code = BUN) 22 7-22 [facility] [id number] 09:22:00 Test Item Value Reference Range Interpretation Comments Creatinine Lvl (test code = Creatinine 0.70 0.50-1.40 Lvl) [place] [id number] 09:22:00 Test Item Value Reference Range Interpretation Comments Ca Norm WB (test code = Ca Norm WB) 1.06 1.05-1.25 [facility] [id number] 09:22:00 Test Item Value Reference Range Interpretation Comments Sodium Lvl (test code = Sodium Lvl) 137 135-145 [facility] [id number] 09:22:00 Test Item Value Reference Range Interpretation Comments Potassium Lvl (test code = Potassium 4.0 3.5-5.1 Lvl) [place] 699391-07-21 09:22:00 Test Item Value Reference Range Interpretation Comments Chloride Lvl (test code = Chloride Lvl) 106 95-109 [place] 699391-07-21 09:22:00 Test Item Value Reference Range Interpretation Comments CO2 (test code = CO2) 26 24-32 [place] 699391-07-21 09:22:00 Test Item Value Reference Range Interpretation Comments AGAP (test code = AGAP) 9.0 10.0-20.0 [place] 699391-07-21 09:22:00 Test Item Value Reference Range Interpretation Comments Calcium Lvl (test code = Calcium Lvl) 8.0 8.5-10.5 [place] 699391-07-21 09:22:00 Test Item Value Reference Range Interpretation Comments eGFR (test code = eGFR) 89 [place] 699391-07-21 09:22:00 Test Item Value Reference Range Interpretation Comments Magnesium Lvl (test code = Magnesium 2.2 1.8-2.4 Lvl) [place] 699391-07-21 09:22:00 Test Item Value Reference Range Interpretation Comments Phosphorus (test code = Phosphorus) 3.3 2.5-4.5 [place] 605121-07-21 09:22:00 Test Item Value Reference Range Interpretation Comments PTT (test code = PTT) 31.9 s 22.9-35.8 [place] [address]-07-21 09:22:00 Test Item Value Reference Range Interpretation Comments PT (test code = PT) 14.0 s 12.0-14.7 [place] [address]-07-21 09:22:00 Test Item Value Reference Range Interpretation Comments INR (test code = INR) 1.09 1 0.85-1.17 [place] [address]-07-21 09:22:00 Test Item Value Reference Range Interpretation Comments WBC X 10x3 (test code = WBC X 10x3) 7.2 3.7-10.4 [place] 605121-07-21 09:22:00 Test Item Value Reference Range Interpretation Comments RBC X 10x6 (test code = RBC X 10x6) 3.44 4.20-5.40 [place] 605121-07-21 09:22:00 Test Item Value Reference Range Interpretation Comments Hgb (test code = Hgb) 10.9 12.0-16.0 [place] 605121-07-21 09:22:00 Test Item Value Reference Range Interpretation Comments Hct (test code = Hct) 31.9 36.0-48.0 [place] 605121-07-21 09:22:00 Test Item Value Reference Range Interpretation Comments MCV (test code = MCV) 92.7 80.0-98.0 [place] 605121-07-21 09:22:00 Test Item Value Reference Range Interpretation Comments MCH (test code = MCH) 31.6 pg 27.0-31.0 [place] 605121-07-21 09:22:00 Test Item Value Reference Range Interpretation Comments MCHC (test code = MCHC) 34.1 32.0-36.0 [place] 605121-07-21 09:22:00 Test Item Value Reference Range Interpretation Comments RDW (test code = RDW) 12.9 11.5-14.5 [facility] [facility]YhikdxoWXRSHPMJCY0268-68-33 09:22:00 Test Item Value Reference Range Interpretation Comments Platelet (test code = Platelet) 220 133-450 [facility] AlliancePjxupgcXNAKMXKDBK4647-93-34 09:22:00 Test Item Value Reference Range Interpretation Comments MPV (test code = MPV) 8.1 7.4-10.4 [place] 605121-07-21 09:22:00 Test Item Value Reference Range Interpretation Comments Segs (test code = Segs) 76.8 45.0-75.0 [facility] AllianceBsgsbyrCLNJKKSIND8027-79-74 09:22:00 Test Item Value Reference Range Interpretation Comments Lymphocytes (test code = Lymphocytes) 13.4 20.0-40.0 [place] 605121-07-21 09:22:00 Test Item Value Reference Range Interpretation Comments Monocytes (test code = Monocytes) 5.8 2.0-12.0 [place] 605121-07-21 09:22:00 Test Item Value Reference Range Interpretation Comments Eosinophils (test code = 3.2 See_Comment [A utomated message] The Eosinophils) system which ge nerated this result tra nsmitted reference range : <=4.0. The reference r katie was not used to int erpret this result as normal/abnormal . [facility] AllianceKwypdhjJEWHKFPBJV4678-77-31 09:22:00 Test Item Value Reference Range Interpretation Comments Basophils (test code = 0.8 See_Comment [Aut omated message] The Basophils) system which ge nerated this result tra nsmitted reference range : <=1.0. The reference r katie was not used to int erpret this result as normal/abnormal . [facility] AllianceCjxqaawVAJWGZHDGE4847-77-44 09:22:00 Test Item Value Reference Range Interpretation Comments Neutrophils # (test code = Neutrophils 5.6 1.5-8.1 #) [facility] AllianceXqhxqchRHYGKOVSLC0013-87-56 09:22:00 Test Item Value Reference Range Interpretation Comments Lymphocytes # (test code = Lymphocytes 1.0 1.0-5.5 #) [facility] AlliancePpasbzdYAHBQVXUFI2462-51-95 09:22:00 Test Item Value Reference Range Interpretation Comments Monocytes # (test code 0.4 See_Comment [Aut omated message] The = Monocytes #) system which generated this result tra nsmitted reference range : <=0.8. The reference r katie was not used to int erpret this result as normal/abnormal . [facility] AllianceWdyrlqoKLWEBTOZAH5273-89-69 09:22:00 Test Item Value Reference Range Interpretation Comments Eosinophils # (test code 0.2 See_Comment [A utomated message] The = Eosinophils #) system [facility] h generated this result tra nsmitted reference range : <=0.5. The reference r katie was not used to int erpret this result as normal/abnormal . [facility] AllianceLerpzlzUQDOSLQZXP4128-60-03 09:22:00 Test Item Value Reference Range Interpretation Comments Basophils # (test code 0.1 See_Comment [Aut omated message] The = Basophils #) system which generated this result tra nsmitted reference range : <=0.2. The reference r katie was not used to int erpret this result as normal/abnormal . [facility]2021-07-21 09:22:00 Test Item Value Reference Range Interpretation Comments Ca Ion WB (test code = Ca Ion WB) 1.06 1.05-1.25 [facility] [id number] 09:22:00 Test Item Value Reference Range Interpretation Comments Ca Norm WB (test code = Ca Norm WB) 1.06 1.05-1.25 [facility]2021-07-20 16:03:00 Test Item Value Reference Range Interpretation Comments Glucose Lvl (test code = Glucose Lvl) 112 70-99 [facility]2021-07-20 16:03:00 Test Item Value Reference Range Interpretation Comments BUN (test code = BUN) 39 7-22 [facility]2021-07-20 16:03:00 Test Item Value Reference Range Interpretation Comments Creatinine Lvl (test code = Creatinine 1.00 0.50-1.40 Lvl) [facility]2021-07-20 16:03:00 Test Item Value Reference Range Interpretation Comments Glucose Lvl (test code = Glucose Lvl) 112 70-99 [facility]2021-07-20 16:03:00 Test Item Value Reference Range Interpretation Comments BUN (test code = BUN) 39 7-22 [facility]2021-07-20 16:03:00 Test Item Value Reference Range Interpretation Comments Creatinine Lvl (test code = Creatinine 1.00 0.50-1.40 Lvl) [facility]2021-07-20 16:03:00 Test Item Value Reference Range Interpretation Comments Sodium Lvl (test code = Sodium Lvl) 139 135-145 [facility]2021-07-20 16:03:00 Test Item Value Reference Range Interpretation Comments Potassium Lvl (test code = Potassium 4.1 3.5-5.1 Lvl) [facility]2021-07-20 16:03:00 Test Item Value Reference Range Interpretation Comments Chloride Lvl (test code = Chloride Lvl) 109 95-109 [facility]2021-07-20 16:03:00 Test Item Value Reference Range Interpretation Comments Sodium Lvl (test code = Sodium Lvl) 139 135-145 [facility]2021-07-20 16:03:00 Test Item Value Reference Range Interpretation Comments CO2 (test code = CO2) 26 24-32 [facility]2021-07-20 16:03:00 Test Item Value Reference Range Interpretation Comments Calcium Lvl (test code = Calcium Lvl) 8.2 8.5-10.5 [place] 699391-07-20 16:03:00 Test Item Value Reference Range Interpretation Comments AGAP (test code = AGAP) 8.1 10.0-20.0 [place] 699391-07-20 16:03:00 Test Item Value Reference Range Interpretation Comments eGFR (test code = eGFR) 58 [place] 699391-07-20 16:03:00 Test Item Value Reference Range Interpretation Comments Magnesium Lvl (test code = Magnesium 2.1 1.8-2.4 Lvl) [place] 699391-07-20 16:03:00 Test Item Value Reference Range Interpretation Comments Phosphorus (test code = Phosphorus) 3.8 2.5-4.5 [place] 605121-07-20 16:03:00 Test Item Value Reference Range Interpretation Comments WBC X 10x3 (test code = WBC X 10x3) 6.7 3.7-10.4 [place] 605121-07-20 16:03:00 Test Item Value Reference Range Interpretation Comments RBC X 10x6 (test code = RBC X 10x6) 3.06 4.20-5.40 [place] 605121-07-20 16:03:00 Test Item Value Reference Range Interpretation Comments Hgb (test code = Hgb) 9.6 12.0-16.0 [place] 605121-07-20 16:03:00 Test Item Value Reference Range Interpretation Comments Hct (test code = Hct) 29.1 36.0-48.0 [facility]2021-07-20 16:03:00 Test Item Value Reference Range Interpretation Comments Potassium Lvl (test code = Potassium 4.1 3.5-5.1 Lvl) [facility] AlliancePcseyvkGOLPNSMYUS4727-45-48 16:03:00 Test Item Value Reference Range Interpretation Comments MCV (test code = MCV) 95.2 80.0-98.0 [place] 605121-07-20 16:03:00 Test Item Value Reference Range Interpretation Comments MCH (test code = MCH) 31.3 pg 27.0-31.0 [place] 605121-07-20 16:03:00 Test Item Value Reference Range Interpretation Comments MCHC (test code = MCHC) 32.9 32.0-36.0 [facility] AllianceDuajgcaVCPAWLRIFG1276-01-52 16:03:00 Test Item Value Reference Range Interpretation Comments RDW (test code = RDW) 12.4 11.5-14.5 [facility] AllianceSgvyfblEDIJHWFLFA3221-60-59 16:03:00 Test Item Value Reference Range Interpretation Comments Platelet (test code = Platelet) 182 133-450 [facility] AllianceWjezxauFPXMAFFIXU3319-93-87 16:03:00 Test Item Value Reference Range Interpretation Comments MPV (test code = MPV) 7.6 7.4-10.4 [facility] AllianceWhhfliqIEKLQMUCUM4401-29-26 16:03:00 Test Item Value Reference Range Interpretation Comments PT (test code = PT) 13.2 s 12.0-14.7 [facility] AllianceCwkwmxmHHKLBKSPWR5305-34-38 16:03:00 Test Item Value Reference Range Interpretation Comments INR (test code = INR) 1.01 1 0.85-1.17 [facility] AllianceTpljpxoSUJHUWENFX2533-23-79 16:03:00 Test Item Value Reference Range Interpretation Comments PTT (test code = PTT) 36.4 s 22.9-35.8 [facility] AllianceMukcflzWSHMLBEHFR5716-00-63 16:03:00 Test Item Value Reference Range Interpretation Comments Segs (test code = Segs) 55.4 45.0-75.0 [facility]2021-07-20 16:03:00 Test Item Value Reference Range Interpretation Comments Chloride Lvl (test code = Chloride Lvl) 109 95-109 [facility] AllianceJogqeaeDUEFDWAZGK6193-19-40 16:03:00 Test Item Value Reference Range Interpretation Comments Lymphocytes (test code = Lymphocytes) 33.2 20.0-40.0 [facility] AllianceQvgwgkyMFCZZRLGBT3775-54-07 16:03:00 Test Item Value Reference Range Interpretation Comments Monocytes (test code = Monocytes) 3.6 2.0-12.0 [facility] AllianceMuwsfwrMZPCSIBRJX1483-77-23 16:03:00 Test Item Value Reference Range Interpretation Comments Eosinophils (test code = 6.3 See_Comment [A utomated message] The Eosinophils) system which ge nerated this result tra nsmitted reference range : <=4.0. The reference r katie was not used to int erpret this result as normal/abnormal . [facility] AllianceNtjlptxHXMSDUNOCX3949-00-10 16:03:00 Test Item Value Reference Range Interpretation Comments Basophils (test code = 1.5 See_Comment [Aut omated message] The Basophils) system which ge nerated this result tra nsmitted reference range : <=1.0. The reference r katie was not used to int erpret this result as normal/abnormal . [facility] AllianceQshmneuMQMWNUMPFL5286-53-33 16:03:00 Test Item Value Reference Range Interpretation Comments Neutrophils # (test code = Neutrophils 3.7 1.5-8.1 #) [facility] AllianceZdgafhuLMDIBCJYAV7966-93-44 16:03:00 Test Item Value Reference Range Interpretation Comments Lymphocytes # (test code = Lymphocytes 2.2 1.0-5.5 #) [facility] AllianceWjgausiTGEQWQZBDL8219-36-79 16:03:00 Test Item Value Reference Range Interpretation Comments Monocytes # (test code 0.2 See_Comment [Aut omated message] The = Monocytes #) system which generated this result tra nsmitted reference range : <=0.8. The reference r katie was not used to int erpret this result as normal/abnormal . [facility] AllianceBgzuazyGVBIPNACKW9577-43-24 16:03:00 Test Item Value Reference Range Interpretation Comments Eosinophils # (test code 0.4 See_Comment [A utomated message] The = Eosinophils #) system whic h generated this result tra nsmitted reference range : <=0.5. The reference r katie was not used to int erpret this result as normal/abnormal . [facility] AllianceNpbfgdwFFNBAPXREW4680-21-49 16:03:00 Test Item Value Reference Range Interpretation Comments Basophils # (test code 0.1 See_Comment [Aut omated message] The = Basophils #) system which generated this result tra nsmitted reference range : <=0.2. The reference r katie was not used to int erpret this result as normal/abnormal . [facility]QfqzapnBHJTXO4397-34-93 16:03:00 Test Item Value Reference Range Interpretation Comments Trig (test code = Trig) 64 [facility]2021-07-20 16:03:00 Test Item Value Reference Range Interpretation Comments CO2 (test code = CO2) 26 24-32 [facility] HospitalNeraqutRWFKYU0842-57-26 16:03:00 Test Item Value Reference Range Interpretation Comments Chol (test code = Chol) 135 [facility]JslgcctNBJIRH4477-40-65 16:03:00 Test Item Value Reference Range Interpretation Comments HDL (test code = HDL) 33 [facility] CenterSxxkctxGOJQSS2855-53-33 16:03:00 Test Item Value Reference Range Interpretation Comments CHD Risk (test code = CHD Risk) 4.09 1 3.90-5.80 [facility] CenterWdukdieJJMKFT4121-24-18 16:03:00 Test Item Value Reference Range Interpretation Comments LDL (Calculated) (test code = LDL 89 (Calculated)) [facility] CenterBpwempsMIOBHN0061-43-82 16:03:00 Test Item Value Reference Range Interpretation Comments VLDL (test code = VLDL) [address] CenterannPARATHYROID QPXBABB4279-46-68 16:03:00 Test Item Value Reference Range Interpretation Comments Ca Ion WB (test code = Ca Ion WB) 1.13 1.05-1.25 [facility] CenterannPARATHYROID EIPPYXS5222-80-59 16:03:00 Test Item Value Reference Range Interpretation Comments Ca Norm WB (test code = Ca Norm WB) 1.10 1.05-1.25 [facility] CenterCHEM MXFEN2773-19-56 16:03:00 Test Item Value Reference Range Interpretation Comments Calcium Lvl (test code = Calcium Lvl) 8.2 8.5-10.5 [facility] [id number] 16:03:00 Test Item Value Reference Range Interpretation Comments AGAP (test code = AGAP) 8.1 10.0-20.0 [facility] CenterSoWeTrip [id number] 16:03:00 Test Item Value Reference Range Interpretation Comments eGFR (test code = eGFR) 58 [facility]So[facility] IVMGV6176-23-14 16:03:00 Test Item Value Reference Range Interpretation Comments Magnesium Lvl (test code = Magnesium 2.1 1.8-2.4 Lvl) [facility] [id number] 16:03:00 Test Item Value Reference Range Interpretation Comments Phosphorus (test code = Phosphorus) 3.8 2.5-4.5 [facility] CenterSfixifiGEHYCKVQRQ6392-94-52 16:03:00 Test Item Value Reference Range Interpretation Comments WBC X 10x3 (test code = WBC X 10x3) 6.7 3.7-10.4 [facility] CenterUggofkrFCWOACCPZX8882-46-22 16:03:00 Test Item Value Reference Range Interpretation Comments RBC X 10x6 (test code = RBC X 10x6) 3.06 4.20-5.40 [facility] AllianceNfarcywKIISUTIJLL5035-50-15 16:03:00 Test Item Value Reference Range Interpretation Comments Hgb (test code = Hgb) 9.6 12.0-16.0 [facility] AllianceXgqzidhAQTBBHLEVF7379-69-50 16:03:00 Test Item Value Reference Range Interpretation Comments Hct (test code = Hct) 29.1 36.0-48.0 [facility] AllianceIxhrutwADMXALNWXZ2954-70-12 16:03:00 Test Item Value Reference Range Interpretation Comments MCV (test code = MCV) 95.2 80.0-98.0 [facility] AllianceIleggvpZEOKENEWBP3106-50-85 16:03:00 Test Item Value Reference Range Interpretation Comments MCH (test code = MCH) 31.3 pg 27.0-31.0 [facility] AllianceKpazcrtBNCBCXUZBS8788-62-69 16:03:00 Test Item Value Reference Range Interpretation Comments MCHC (test code = MCHC) 32.9 32.0-36.0 [facility] AllianceXpluarlAKEZDWCZRP5908-36-30 16:03:00 Test Item Value Reference Range Interpretation Comments RDW (test code = RDW) 12.4 11.5-14.5 [facility] AllianceSlnbeeyCDYHYWIMCP9697-96-90 16:03:00 Test Item Value Reference Range Interpretation Comments Platelet (test code = Platelet) 182 133-450 [facility] AllianceIftjnvjIYPSESDXQP2614-10-12 16:03:00 Test Item Value Reference Range Interpretation Comments MPV (test code = MPV) 7.6 7.4-10.4 [facility] AllianceBjufemuZEIKVRLBML1140-57-13 16:03:00 Test Item Value Reference Range Interpretation Comments PT (test code = PT) 13.2 s 12.0-14.7 [facility] AllianceSlgibsgTMOKLFHCII9096-39-22 16:03:00 Test Item Value Reference Range Interpretation Comments INR (test code = INR) 1.01 1 0.85-1.17 [place] 605121-07-20 16:03:00 Test Item Value Reference Range Interpretation Comments PTT (test code = PTT) 36.4 s 22.9-35.8 [facility] AllianceEwtgkiqQDXGTMAWLR9024-40-65 16:03:00 Test Item Value Reference Range Interpretation Comments Segs (test code = Segs) 55.4 45.0-75.0 [facility] AllianceHcheyeoGEJFXVZNWZ2967-79-56 16:03:00 Test Item Value Reference Range Interpretation Comments Lymphocytes (test code = Lymphocytes) 33.2 20.0-40.0 [place] 605121-07-20 16:03:00 Test Item Value Reference Range Interpretation Comments Monocytes (test code = Monocytes) 3.6 2.0-12.0 [place] 605121-07-20 16:03:00 Test Item Value Reference Range Interpretation Comments Eosinophils (test code = 6.3 See_Comment [A utomated message] The Eosinophils) system which ge nerated this result tra nsmitted reference range : <=4.0. The reference r katie was not used to int erpret this result as normal/abnormal . [place] 605121-07-20 16:03:00 Test Item Value Reference Range Interpretation Comments Basophils (test code = 1.5 See_Comment [Aut omated message] The Basophils) system which ge nerated this result tra nsmitted reference range : <=1.0. The reference r katie was not used to int erpret this result as normal/abnormal . [facility] AllianceShpwpvrBOGIFVIZWV1947-67-08 16:03:00 Test Item Value Reference Range Interpretation Comments Neutrophils # (test code = Neutrophils 3.7 1.5-8.1 #) [facility] AllianceYksdmdfBHLWXXLXOC7342-07-21 16:03:00 Test Item Value Reference Range Interpretation Comments Lymphocytes # (test code = Lymphocytes 2.2 1.0-5.5 #) [facility] AllianceVwlglyaFWBRCHUJMF0792-32-77 16:03:00 Test Item Value Reference Range Interpretation Comments Monocytes # (test code 0.2 See_Comment [Aut omated message] The = Monocytes #) system which generated this result tra nsmitted reference range : <=0.8. The reference r katie was not used to int erpret this result as normal/abnormal . [place] 605121-07-20 16:03:00 Test Item Value Reference Range Interpretation Comments Eosinophils # (test code 0.4 See_Comment [A utomated message] The = Eosinophils #) system whic h generated this result tra nsmitted reference range : <=0.5. The reference r katie was not used to int erpret this result as normal/abnormal . [facility] CenterPbrjjibJAOLNSPMHC0667-16-23 16:03:00 Test Item Value Reference Range Interpretation Comments Basophils # (test code 0.1 See_Comment [Aut omated message] The = Basophils #) system which generated this result tra nsmitted reference range : <=0.2. The reference r katie was not used to int erpret this result as normal/abnormal . [facility] CenterKjqapajJYEFPM1473-98-56 16:03:00 Test Item Value Reference Range Interpretation Comments Trig (test code = Trig) 64 [facility] CenterQkbsvadBHEYNM3313-36-46 16:03:00 Test Item Value Reference Range Interpretation Comments Chol (test code = Chol) 135 [facility] CenterBimdrnmHIPHUB9609-75-02 16:03:00 Test Item Value Reference Range Interpretation Comments HDL (test code = HDL) 33 [facility] CenterUfuxwuzWUPTWZ5190-92-29 16:03:00 Test Item Value Reference Range Interpretation Comments CHD Risk (test code = CHD Risk) 4.09 1 3.90-5.80 [facility] CenterNwcfkamXRRBOS8558-35-29 16:03:00 Test Item Value Reference Range Interpretation Comments LDL (Calculated) (test code = LDL 89 (Calculated)) [facility] CenterFhvtqniZQRZJW2760-66-64 16:03:00 Test Item Value Reference Range Interpretation Comments VLDL (test code = VLDL) [address] [facility] CenterannPARATHYROID [id number] 16:03:00 Test Item Value Reference Range Interpretation Comments Ca Ion WB (test code = Ca Ion WB) 1.13 1.05-1.25 [facility] CenterannPARATHYROID FDJZRHR0518-06-24 16:03:00 Test Item Value Reference Range Interpretation Comments Ca Norm WB (test code = Ca Norm WB) 1.10 1.05-1.25 [facility] CenterannBACTERIAL - [id number] 18:31:00 Test Item Value Reference Range Interpretation Comments MRSA by PCR (test Negative (01/08/21 1:31 code = MRSA by PCR) PM) [facility] [employer] [id number] 18:31:00 Test Item Value Reference Range Interpretation Comments ABO/Rh (test code = ABO/Rh) A POS [facility] [employer] [id number] 18:31:00 Test Item Value Reference Range Interpretation Comments Antibody Scrn (test Negative (01/08/21 1:31 code = Antibody Scrn) PM) [facility]BACT[facility] - [id number] 18:31:00 Test Item Value Reference Range Interpretation Comments MRSA by PCR (test Negative (01/08/21 1:31 code = MRSA by PCR) PM) [facility] [employer] [id number] 18:31:00 Test Item Value Reference Range Interpretation Comments ABO/Rh (test code = ABO/Rh) A POS [facility] [place] [facility] [id number] 18:31:00 Test Item Value Reference Range Interpretation Comments Antibody Scrn (test Negative (01/08/21 1:31 code = Antibody Scrn) PM) [facility] [place] [facility] [id number] 18:19:00 Test Item Value Reference Range Interpretation Comments RBC product (test code Product available = RBC product) (01/08/21 1:19 PM) [facility] [employer] [id number] 18:19:00 Test Item Value Reference Range Interpretation Comments Glucose Lvl (test code = Glucose Lvl) 106 70-99 [facility] [employer] [id number] 18:19:00 Test Item Value Reference Range Interpretation Comments BUN (test code = BUN) 37 7-22 [facility] [employer] [id number] 18:19:00 Test Item Value Reference Range Interpretation Comments Creatinine Lvl (test code = Creatinine 1.00 0.50-1.40 Lvl) [facility] [employer] [id number] 18:19:00 Test Item Value Reference Range Interpretation Comments Sodium Lvl (test code = Sodium Lvl) 140 135-145 [facility] [employer] [id number] 18:19:00 Test Item Value Reference Range Interpretation Comments Potassium Lvl (test code = Potassium 4.4 3.5-5.1 Lvl) [facility] [employer] [id number] 18:19:00 Test Item Value Reference Range Interpretation Comments Chloride Lvl (test code = Chloride Lvl) 104 95-109 [facility] [employer] [id number] 18:19:00 Test Item Value Reference Range Interpretation Comments CO2 (test code = CO2) 32 24-32 [facility] [employer] [id number] 18:19:00 Test Item Value Reference Range Interpretation Comments Calcium Lvl (test code = Calcium Lvl) 10.8 8.5-10.5 [facility]2021-07-15 18:19:00 Test Item Value Reference Range Interpretation Comments AGAP (test code = AGAP) 8.4 10.0-20.0 [facility]2021-07-15 18:19:00 Test Item Value Reference Range Interpretation Comments eGFR (test code = eGFR) 58 [facility] CenterannERTAPENEM:SUSC:PT:ISOLATE:ORDQN:[id number] 18:19:00 Test Item Value Reference Range Interpretation Comments Culture: Urine (test >100,000 CFU/mL code = Culture: Escherichia coli <10,000 Urine) CFU/mL Skin [facility] CenterannERTAPENEM:SUSC:PT:ISOLATE:ORDQN:[id number] 18:19:00 Test Item Value Reference Range Interpretation Comments Escherichia coli (test code Escherichia coli = Escherichia coli) [facility] AllianceCziajnqQGTAGMQNSD1054-89-01 18:19:00 Test Item Value Reference Range Interpretation Comments WBC X 10x3 (test code = WBC X 10x3) 8.2 3.7-10.4 [facility] AllianceDxeuzexREKZFPBODK8261-54-91 18:19:00 Test Item Value Reference Range Interpretation Comments RBC X 10x6 (test code = RBC X 10x6) 3.81 4.20-5.40 [facility] AllianceDakszetNOVLBKMTFE2673-17-09 18:19:00 Test Item Value Reference Range Interpretation Comments Hgb (test code = Hgb) 12.0 12.0-16.0 [facility] AllianceThbpwutCCVHIUVXLZ6542-84-94 18:19:00 Test Item Value Reference Range Interpretation Comments Hct (test code = Hct) 36.2 36.0-48.0 [facility] AllianceSyipsgqHGBQWZHVBC5131-69-42 18:19:00 Test Item Value Reference Range Interpretation Comments MCV (test code = MCV) 95.2 80.0-98.0 [facility] AllianceIwhyrbhOJQALRSEGK6373-67-10 18:19:00 Test Item Value Reference Range Interpretation Comments MCH (test code = MCH) 31.5 pg 27.0-31.0 [facility] AllianceWmozsvnGLDWHKZSLI8698-67-47 18:19:00 Test Item Value Reference Range Interpretation Comments MCHC (test code = MCHC) 33.1 32.0-36.0 [facility] AllianceSxbqhcbWUNDQXSLZL3722-90-85 18:19:00 Test Item Value Reference Range Interpretation Comments RDW (test code = RDW) 13.0 11.5-14.5 [facility] AllianceEvknxscLZIQLVKDMT0367-31-29 18:19:00 Test Item Value Reference Range Interpretation Comments Platelet (test code = Platelet) 239 133-450 [facility] AllianceKiumdvpACAFQNXPUY5812-02-01 18:19:00 Test Item Value Reference Range Interpretation Comments MPV (test code = MPV) 7.8 7.4-10.4 [place] 605121-07-15 18:19:00 Test Item Value Reference Range Interpretation Comments PT (test code = PT) 13.9 s 12.0-14.7 [facility] AllianceCateotsMSHRBTKATP8774-97-76 18:19:00 Test Item Value Reference Range Interpretation Comments INR (test code = INR) 1.08 1 0.85-1.17 [facility] AllianceCwnjmmcLFLHOPFDQD8886-25-59 18:19:00 Test Item Value Reference Range Interpretation Comments PTT (test code = PTT) 29.2 s 22.9-35.8 [facility] AllianceTbppwwzUPPXCKXDTU9299-35-89 18:19:00 Test Item Value Reference Range Interpretation Comments Segs (test code = Segs) 63.1 45.0-75.0 [facility] AllianceOkfbykrSWEKRZXXWG1815-12-95 18:19:00 Test Item Value Reference Range Interpretation Comments Lymphocytes (test code = Lymphocytes) 23.0 20.0-40.0 [facility] AllianceCncjtenIQRAWPXBPQ6090-15-95 18:19:00 Test Item Value Reference Range Interpretation Comments Monocytes (test code = Monocytes) 7.5 2.0-12.0 [place] 605121-07-15 18:19:00 Test Item Value Reference Range Interpretation Comments Eosinophils (test code = 5.0 See_Comment [A utomated message] The Eosinophils) system which ge nerated this result tra nsmitted reference range : <=4.0. The reference r katie was not used to int erpret this result as normal/abnormal . [facility] AlliancePvcygccEKGOXKMVVW1642-66-16 18:19:00 Test Item Value Reference Range Interpretation Comments Basophils (test code = 1.4 See_Comment [Aut omated message] The Basophils) system which ge nerated this result tra nsmitted reference range : <=1.0. The reference r katie was not used to int erpret this result as normal/abnormal . [facility] AllianceSpzxlarFKUQKLHQJB3437-22-68 18:19:00 Test Item Value Reference Range Interpretation Comments Neutrophils # (test code = Neutrophils 5.2 1.5-8.1 #) [facility] AllianceVsxiptcRGZCUJQTHN9941-13-22 18:19:00 Test Item Value Reference Range Interpretation Comments Lymphocytes # (test code = Lymphocytes 1.9 1.0-5.5 #) [facility] AlliancePecaxxsUJVGJTEDYP8013-06-27 18:19:00 Test Item Value Reference Range Interpretation Comments Monocytes # (test code 0.6 See_Comment [Aut omated message] The = Monocytes #) system which generated this result tra nsmitted reference range : <=0.8. The reference r katie was not used to int erpret this result as normal/abnormal . [facility] AllianceCxpuufxWZMZTSTGBJ9182-99-76 18:19:00 Test Item Value Reference Range Interpretation Comments Eosinophils # (test code 0.4 See_Comment [A utomated message] The = Eosinophils #) system whic h generated this result tra nsmitted reference range : <=0.5. The reference r katie was not used to int erpret this result as normal/abnormal . [facility] AllianceRcwsccjODVRZSISOD1668-26-52 18:19:00 Test Item Value Reference Range Interpretation Comments Basophils # (test code 0.1 See_Comment [Aut omated message] The = Basophils #) system which generated this result tra nsmitted reference range : <=0.2. The reference r katie was not used to int erpret this result as normal/abnormal . [facility] AND [id number] 18:19:00 Test Item Value Reference Range Interpretation Comments UA Turbidity (test code Slight *ABN*(01/08/21 = UA Turbidity) 1:19 PM) [facility] AND [id number] 18:19:00 Test Item Value Reference Range Interpretation Comments UA Spec Grav (test code = UA Spec 1.019 1 Grav) [facility] AND [id number] 18:19:00 Test Item Value Reference Range Interpretation Comments UA pH (test code = UA pH) 5.0 1 5.0-8.0 [facility] AND [id number] 18:19:00 Test Item Value Reference Range Interpretation Comments UA Protein (test code = UA Negative mg/dL Protein) [facility] AND [id number] 18:19:00 Test Item Value Reference Range Interpretation Comments UA Glucose (test code = UA Negative mg/dL Glucose) [facility] AND [id number] 18:19:00 Test Item Value Reference Range Interpretation Comments UA Ketones (test code = UA Negative mg/dL Ketones) [facility] AND [id number] 18:19:00 Test Item Value Reference Range Interpretation Comments UA Bili (test code = Negative *NA*(01/08/21 UA Bili) 1:19 PM) [facility] AND [id number] 18:19:00 Test Item Value Reference Range Interpretation Comments UA Blood (test code = Negative (01/08/21 1:19 UA Blood) PM) [facility] AND [id number] 18:19:00 Test Item Value Reference Range Interpretation Comments UA Nitrite (test code Positive *ABN*(01/08/21 = UA Nitrite) 1:19 PM) [facility] AND [id number] 18:19:00 Test Item Value Reference Range Interpretation Comments UA Leuk Est (test code Large *ABN*(01/08/21 = UA Leuk Est) 1:19 PM) [facility] AND [id number] 18:19:00 Test Item Value Reference Range Interpretation Comments UA Sq Epi (test code = UA Sq Occasional /LPF Epi) [facility] AND [id number] 18:19:00 Test Item Value Reference Range Interpretation Comments UA WBC (test code = 47 See_Comment [Automa matteo message] The UA WBC) system which ge nerated this result transmit matteo reference range : <=5. The reference range was not used to interpr et this result as miesha l/abnormal. [facility] AND [id number] 18:19:00 Test Item Value Reference Range Interpretation Comments UA RBC (test code = 2 See_Comment [Automa matteo message] The UA RBC) system which ge nerated this result transmit matteo reference range : <=2. The reference range was not used to interpr et this result as miesha l/abnormal. [facility] AND [id number] 18:19:00 Test Item Value Reference Range Interpretation Comments UA Bacteria (test code = UA Moderate /HPF Bacteria) [facility] AND [id number] 18:19:00 Test Item Value Reference Range Interpretation Comments UA Mucus (test code = UA Mucus) Few /LPF [facility] AND [id number] 18:19:00 Test Item Value Reference Range Interpretation Comments UA Color (test code = UA Color) Yellow [facility] AND [id number] 18:19:00 Test Item Value Reference Range Interpretation Comments UA Urobilinogen (test code = UA no gt 0.1-1.0 Urobilinogen) [facility] [id number] 18:19:00 Test Item Value Reference Range Interpretation Comments RBC product (test code Product available = RBC product) (01/08/21 1:19 PM) [facility]2021-07-15 18:19:00 Test Item Value Reference Range Interpretation Comments Glucose Lvl (test code = Glucose Lvl) 106 70-99 [facility]2021-07-15 18:19:00 Test Item Value Reference Range Interpretation Comments BUN (test code = BUN) 37 7-22 [facility]2021-07-15 18:19:00 Test Item Value Reference Range Interpretation Comments Creatinine Lvl (test code = Creatinine 1.00 0.50-1.40 Lvl) [facility]2021-07-15 18:19:00 Test Item Value Reference Range Interpretation Comments Sodium Lvl (test code = Sodium Lvl) 140 135-145 [facility] [id number] 18:19:00 Test Item Value Reference Range Interpretation Comments Potassium Lvl (test code = Potassium 4.4 3.5-5.1 Lvl) [facility] [id number] 18:19:00 Test Item Value Reference Range Interpretation Comments Chloride Lvl (test code = Chloride Lvl) 104 95-109 [facility]2021-07-15 18:19:00 Test Item Value Reference Range Interpretation Comments CO2 (test code = CO2) 32 24-32 [facility]2021-07-15 18:19:00 Test Item Value Reference Range Interpretation Comments Calcium Lvl (test code = Calcium Lvl) 10.8 8.5-10.5 [facility] [id number] 18:19:00 Test Item Value Reference Range Interpretation Comments AGAP (test code = AGAP) 8.4 10.0-20.0 [facility] [id number] 18:19:00 Test Item Value Reference Range Interpretation Comments eGFR (test code = eGFR) 58 [facility]PT:ISOLATE:ORDQN:[id number] 18:19:00 Test Item Value Reference Range Interpretation Comments Culture: Urine (test >100,000 CFU/mL code = Culture: Escherichia coli <10,000 Urine) CFU/mL [facility]:PT:ISOLATE:ORDQN:[id number] 18:19:00 Test Item Value Reference Range Interpretation Comments Escherichia coli (test code Escherichia coli = Escherichia coli) [facility] AllianceMcfvnblDFBAGPTFMQ7970-20-68 18:19:00 Test Item Value Reference Range Interpretation Comments WBC X 10x3 (test code = WBC X 10x3) 8.2 3.7-10.4 [facility] AllianceOghdbaeOCNXUURXZN7267-93-14 18:19:00 Test Item Value Reference Range Interpretation Comments RBC X 10x6 (test code = RBC X 10x6) 3.81 4.20-5.40 [facility] AllianceLceieklWIDZOXOAXP7210-39-01 18:19:00 Test Item Value Reference Range Interpretation Comments Hgb (test code = Hgb) 12.0 12.0-16.0 [facility] AllianceIfccrceDTDTMCWMTM1814-96-00 18:19:00 Test Item Value Reference Range Interpretation Comments Hct (test code = Hct) 36.2 36.0-48.0 [facility] AllianceUqnoufqCSEVTZDLFY5478-03-62 18:19:00 Test Item Value Reference Range Interpretation Comments MCV (test code = MCV) 95.2 80.0-98.0 [facility] AllianceUbcrcltNBWZNSEDOS0792-00-89 18:19:00 Test Item Value Reference Range Interpretation Comments MCH (test code = MCH) 31.5 pg 27.0-31.0 [facility] AllianceQygnqykGTAEBMSPEU8105-58-00 18:19:00 Test Item Value Reference Range Interpretation Comments MCHC (test code = MCHC) 33.1 32.0-36.0 [place] [address]-07-15 18:19:00 Test Item Value Reference Range Interpretation Comments RDW (test code = RDW) 13.0 11.5-14.5 [place] [address]-07-15 18:19:00 Test Item Value Reference Range Interpretation Comments Platelet (test code = Platelet) 239 133-450 [place] 605121-07-15 18:19:00 Test Item Value Reference Range Interpretation Comments MPV (test code = MPV) 7.8 7.4-10.4 [place] [address]-07-15 18:19:00 Test Item Value Reference Range Interpretation Comments PT (test code = PT) 13.9 s 12.0-14.7 [place] [address]-07-15 18:19:00 Test Item Value Reference Range Interpretation Comments INR (test code = INR) 1.08 1 0.85-1.17 [place] [address]-07-15 18:19:00 Test Item Value Reference Range Interpretation Comments PTT (test code = PTT) 29.2 s 22.9-35.8 [place] [address]-07-15 18:19:00 Test Item Value Reference Range Interpretation Comments Segs (test code = Segs) 63.1 45.0-75.0 [place] [address]-07-15 18:19:00 Test Item Value Reference Range Interpretation Comments Lymphocytes (test code = Lymphocytes) 23.0 20.0-40.0 [place] [address]-07-15 18:19:00 Test Item Value Reference Range Interpretation Comments Monocytes (test code = Monocytes) 7.5 2.0-12.0 [place] [address]-07-15 18:19:00 Test Item Value Reference Range Interpretation Comments Eosinophils (test code = 5.0 See_Comment [A utomated message] The Eosinophils) system which ge nerated this result tra nsmitted reference range : <=4.0. The reference r katie was not used to int erpret this result as normal/abnormal . [place] [address]-07-15 18:19:00 Test Item Value Reference Range Interpretation Comments Basophils (test code = 1.4 See_Comment [Aut omated message] The Basophils) system which ge nerated this result tra nsmitted reference range : <=1.0. The reference r katie was not used to int erpret this result as normal/abnormal . [facility] Allian[id number] 18:19:00 Test Item Value Reference Range Interpretation Comments Neutrophils # (test code = Neutrophils 5.2 1.5-8.1 #) [facility] AllianceYxsrumlDWWOHMKKJK3498-03-68 18:19:00 Test Item Value Reference Range Interpretation Comments Lymphocytes # (test code = Lymphocytes 1.9 1.0-5.5 #) [facility] AllianceXjoxxwfGZSGVHIGQV7493-67-61 18:19:00 Test Item Value Reference Range Interpretation Comments Monocytes # (test code 0.6 See_Comment [Aut omated message] The = Monocytes #) system which generated this result tra nsmitted reference range : <=0.8. The reference r katie was not used to int erpret this result as normal/abnormal . [facility] AlliancePwapjpvQRCCILKDUI4037-71-39 18:19:00 Test Item Value Reference Range Interpretation Comments Eosinophils # (test code 0.4 See_Comment [A utomated message] The = Eosinophils #) system whic h generated this result tra nsmitted reference range : <=0.5. The reference r katie was not used to int erpret this result as normal/abnormal . [facility] AllianceOniqsusXIYQSNEXPM0870-55-17 18:19:00 Test Item Value Reference Range Interpretation Comments Basophils # (test code 0.1 See_Comment [Aut omated message] The = Basophils #) system which generated this result tra nsmitted reference range : <=0.2. The reference r katie was not used to int erpret this result as normal/abnormal . [facility] AND [id number] 18:19:00 Test Item Value Reference Range Interpretation Comments UA Turbidity (test code Slight *ABN*(01/08/21 = UA Turbidity) 1:19 PM) [facility] AND [id number] 18:19:00 Test Item Value Reference Range Interpretation Comments UA Spec Grav (test code = UA Spec 1.019 1 Grav) [facility] AND [id number] 18:19:00 Test Item Value Reference Range Interpretation Comments UA pH (test code = UA pH) 5.0 1 5.0-8.0 [facility] AND [id number] 18:19:00 Test Item Value Reference Range Interpretation Comments UA Protein (test code = UA Negative mg/dL Protein) [facility] [id number] 18:19:00 Test Item Value Reference Range Interpretation Comments UA Glucose (test code = UA Negative mg/dL Glucose) [facility] AND [id number] 18:19:00 Test Item Value Reference Range Interpretation Comments UA Ketones (test code = UA Negative mg/dL Ketones) [facility] AND [id number] 18:19:00 Test Item Value Reference Range Interpretation Comments UA Bili (test code = Negative *NA*(01/08/21 UA Bili) 1:19 PM) [facility] AND [id number] 18:19:00 Test Item Value Reference Range Interpretation Comments UA Blood (test code = Negative (01/08/21 1:19 UA Blood) PM) [facility] AND [id number] 18:19:00 Test Item Value Reference Range Interpretation Comments UA Nitrite (test code Positive *ABN*(01/08/21 = UA Nitrite) 1:19 PM) [facility] AND [id number] 18:19:00 Test Item Value Reference Range Interpretation Comments UA Leuk Est (test code Large *ABN*(01/08/21 = UA Leuk Est) 1:19 PM) [facility] AND [id number] 18:19:00 Test Item Value Reference Range Interpretation Comments UA Sq Epi (test code = UA Sq Occasional /LPF Epi) [facility] AND [id number] 18:19:00 Test Item Value Reference Range Interpretation Comments UA WBC (test code = 47 See_Comment [Automa matteo message] The UA WBC) system which ge nerated this result transmit matteo reference range : <=5. The reference range was not used to interpr et this result as miesha l/abnormal. [facility] AND [id number] 18:19:00 Test Item Value Reference Range Interpretation Comments UA RBC (test code = 2 See_Comment [Automa matteo message] The UA RBC) system which ge nerated this result transmit mateto reference range : <=2. The reference range was not used to interpr et this result as miesha l/abnormal. [facility] AND [id number] 18:19:00 Test Item Value Reference Range Interpretation Comments UA Bacteria (test code = UA Moderate /HPF Bacteria) [facility] AND [id number] 18:19:00 Test Item Value Reference Range Interpretation Comments UA Mucus (test code = UA Mucus) Few /LPF [facility] AND [id number] 18:19:00 Test Item Value Reference Range Interpretation Comments UA Color (test code = UA Color) Yellow [facility] AND [id number] 18:19:00 Test Item Value Reference Range Interpretation Comments UA Urobilinogen (test code = UA no gt 0.1-1.0 Urobilinogen) [facility]2021-05-05 08:06:00 Test Item Value Reference Range Interpretation Comments Glucose Lvl (test code = Glucose Lvl) 112 70-99 [place] 699391-05-05 08:06:00 Test Item Value Reference Range Interpretation Comments BUN (test code = BUN) 21 7-22 [place] 699391-05-05 08:06:00 Test Item Value Reference Range Interpretation Comments Creatinine Lvl (test code = Creatinine 0.70 0.50-1.40 Lvl) [facility]2021-05-05 08:06:00 Test Item Value Reference Range Interpretation Comments Sodium Lvl (test code = Sodium Lvl) 139 135-145 [facility]2021-05-05 08:06:00 Test Item Value Reference Range Interpretation Comments Potassium Lvl (test code = Potassium 4.3 3.5-5.1 Lvl) [facility]2021-05-05 08:06:00 Test Item Value Reference Range Interpretation Comments Chloride Lvl (test code = Chloride Lvl) 105 95-109 [facility]2021-05-05 08:06:00 Test Item Value Reference Range Interpretation Comments CO2 (test code = CO2) 26 24-32 [place] 699391-05-05 08:06:00 Test Item Value Reference Range Interpretation Comments Calcium Lvl (test code = Calcium Lvl) 8.6 8.5-10.5 [place] 699391-05-05 08:06:00 Test Item Value Reference Range Interpretation Comments AGAP (test code = AGAP) 12.3 10.0-20.0 [place] 699391-05-05 08:06:00 Test Item Value Reference Range Interpretation Comments eGFR (test code = eGFR) 89 [facility]2021-05-05 08:06:00 Test Item Value Reference Range Interpretation Comments Magnesium Lvl (test code = Magnesium 2.2 1.8-2.4 Lvl) [facility]2021-05-05 08:06:00 Test Item Value Reference Range Interpretation Comments Phosphorus (test code = Phosphorus) 3.0 2.5-4.5 [facility] AllianceRmsxzxrFVGRQRPCIH7698-42-07 08:06:00 Test Item Value Reference Range Interpretation Comments WBC X 10x3 (test code = WBC X 10x3) 11.2 3.7-10.4 [place] 605121-05-05 08:06:00 Test Item Value Reference Range Interpretation Comments RBC X 10x6 (test code = RBC X 10x6) 3.22 4.20-5.40 [place] 605121-05-05 08:06:00 Test Item Value Reference Range Interpretation Comments Hgb (test code = Hgb) 10.3 12.0-16.0 [facility] AllianceMzsjwptMQVSDYAWOV3705-97-16 08:06:00 Test Item Value Reference Range Interpretation Comments Hct (test code = Hct) 30.6 36.0-48.0 [facility] AllianceCgkdsssLHDPATCRHD1644-85-97 08:06:00 Test Item Value Reference Range Interpretation Comments MCV (test code = MCV) 94.8 80.0-98.0 [facility] AllianceGukampgFQLXGEWQFF0997-73-01 08:06:00 Test Item Value Reference Range Interpretation Comments MCH (test code = MCH) 31.9 pg 27.0-31.0 [place] 605121-05-05 08:06:00 Test Item Value Reference Range Interpretation Comments MCHC (test code = MCHC) 33.6 32.0-36.0 [place] 605121-05-05 08:06:00 Test Item Value Reference Range Interpretation Comments RDW (test code = RDW) 12.7 11.5-14.5 [facility] AllianceMjyiowuNTESCQFCEM2880-10-67 08:06:00 Test Item Value Reference Range Interpretation Comments Platelet (test code = Platelet) 179 133-450 [place] 605121-05-05 08:06:00 Test Item Value Reference Range Interpretation Comments MPV (test code = MPV) 7.5 7.4-10.4 [facility] AllianceUtxovejKSJLTARBTL2861-96-03 08:06:00 Test Item Value Reference Range Interpretation Comments PT (test code = PT) 13.2 s 12.0-14.7 [facility] AllianceHmwklwpHITBMXYKXJ4433-20-23 08:06:00 Test Item Value Reference Range Interpretation Comments INR (test code = INR) 1.01 1 0.85-1.17 [facility] AllianceVprfoqeUDGECOXVVD8114-23-49 08:06:00 Test Item Value Reference Range Interpretation Comments PTT (test code = PTT) 29.1 s 22.9-35.8 [facility] AllianceNddwqqaWEACEFSXXE3596-03-54 08:06:00 Test Item Value Reference Range Interpretation Comments Segs (test code = Segs) 88.3 45.0-75.0 [facility] AllianceCceuqgiSPJBWZBGBH2806-15-96 08:06:00 Test Item Value Reference Range Interpretation Comments Lymphocytes (test code = Lymphocytes) 7.7 20.0-40.0 [facility] AllianceRkgawbxXVJWXYYVGW3693-86-03 08:06:00 Test Item Value Reference Range Interpretation Comments Monocytes (test code = Monocytes) 3.7 2.0-12.0 [facility] AllianceVdcwggxCVERYGMNXC9150-35-70 08:06:00 Test Item Value Reference Range Interpretation Comments Basophils (test code = 0.3 See_Comment [Aut omated message] The Basophils) system which ge nerated this result tra nsmitted reference range : <=1.0. The reference r katie was not used to int erpret this result as normal/abnormal . [facility] AllianceFrprboxFLEMVRBBQG7078-53-07 08:06:00 Test Item Value Reference Range Interpretation Comments Neutrophils # (test code = Neutrophils 9.9 1.5-8.1 #) [facility] AlliancePxbotcyZVFHDZBNZB0888-63-13 08:06:00 Test Item Value Reference Range Interpretation Comments Lymphocytes # (test code = Lymphocytes 0.9 1.0-5.5 #) [facility] AllianceUjggpefVADFQDSEDH7980-17-08 08:06:00 Test Item Value Reference Range Interpretation Comments Monocytes # (test code 0.4 See_Comment [Aut omated message] The = Monocytes #) system which generated this result tra nsmitted reference range : <=0.8. The reference r katie was not used to int erpret this result as normal/abnormal . [facility] HLUADWM5007-78-13 08:06:00 Test Item Value Reference Range Interpretation Comments Ca Ion WB (test code = Ca Ion WB) 1.08 1.05-1.25 [facility] SOSDGCW9605-13-16 08:06:00 Test Item Value Reference Range Interpretation Comments Ca Norm WB (test code = Ca Norm WB) 1.12 1.05-1.25 [facility]2021-05-05 08:06:00 Test Item Value Reference Range Interpretation Comments Glucose Lvl (test code = Glucose Lvl) 112 70-99 [facility]2021-05-05 08:06:00 Test Item Value Reference Range Interpretation Comments BUN (test code = BUN) 21 7-22 [facility]2021-05-05 08:06:00 Test Item Value Reference Range Interpretation Comments Creatinine Lvl (test code = Creatinine 0.70 0.50-1.40 Lvl) [facility]2021-05-05 08:06:00 Test Item Value Reference Range Interpretation Comments Sodium Lvl (test code = Sodium Lvl) 139 135-145 [facility]2021-05-05 08:06:00 Test Item Value Reference Range Interpretation Comments Potassium Lvl (test code = Potassium 4.3 3.5-5.1 Lvl) [facility]2021-05-05 08:06:00 Test Item Value Reference Range Interpretation Comments Chloride Lvl (test code = Chloride Lvl) 105 95-109 [facility]2021-05-05 08:06:00 Test Item Value Reference Range Interpretation Comments CO2 (test code = CO2) 26 24-32 [facility]2021-05-05 08:06:00 Test Item Value Reference Range Interpretation Comments Calcium Lvl (test code = Calcium Lvl) 8.6 8.5-10.5 [facility]2021-05-05 08:06:00 Test Item Value Reference Range Interpretation Comments AGAP (test code = AGAP) 12.3 10.0-20.0 [facility]2021-05-05 08:06:00 Test Item Value Reference Range Interpretation Comments eGFR (test code = eGFR) 89 [facility]2021-05-05 08:06:00 Test Item Value Reference Range Interpretation Comments Magnesium Lvl (test code = Magnesium 2.2 1.8-2.4 Lvl) [facility]2021-05-05 08:06:00 Test Item Value Reference Range Interpretation Comments Phosphorus (test code = Phosphorus) 3.0 2.5-4.5 [facility] AllianceWyygulhOFDZGXLCQN0676-38-01 08:06:00 Test Item Value Reference Range Interpretation Comments WBC X 10x3 (test code = WBC X 10x3) 11.2 3.7-10.4 [facility] AlliancePezcnwjNPGOYOXDZU7479-27-52 08:06:00 Test Item Value Reference Range Interpretation Comments RBC X 10x6 (test code = RBC X 10x6) 3.22 4.20-5.40 [place] 605121-05-05 08:06:00 Test Item Value Reference Range Interpretation Comments Hgb (test code = Hgb) 10.3 12.0-16.0 [place] 605121-05-05 08:06:00 Test Item Value Reference Range Interpretation Comments Hct (test code = Hct) 30.6 36.0-48.0 [facility] AllianceXujczqjMPKSBYXTOR5763-60-96 08:06:00 Test Item Value Reference Range Interpretation Comments MCV (test code = MCV) 94.8 80.0-98.0 [facility] AllianceWaglwqcQGOQEQTPEH6337-75-13 08:06:00 Test Item Value Reference Range Interpretation Comments MCH (test code = MCH) 31.9 pg 27.0-31.0 [facility] AllianceMbvqpkuVGBVHZEWEB0978-30-47 08:06:00 Test Item Value Reference Range Interpretation Comments MCHC (test code = MCHC) 33.6 32.0-36.0 [place] 605121-05-05 08:06:00 Test Item Value Reference Range Interpretation Comments RDW (test code = RDW) 12.7 11.5-14.5 [place] 605121-05-05 08:06:00 Test Item Value Reference Range Interpretation Comments Platelet (test code = Platelet) 179 133-450 [facility] AllianceIikeukrJVVQBKIAHJ2445-78-20 08:06:00 Test Item Value Reference Range Interpretation Comments MPV (test code = MPV) 7.5 7.4-10.4 [facility] HospitalBhynajaLXOESSAXFX3305-02-75 08:06:00 Test Item Value Reference Range Interpretation Comments PT (test code = PT) 13.2 s 12.0-14.7 [facility] AllianceThicpdhYODJYLEEHF4195-00-02 08:06:00 Test Item Value Reference Range Interpretation Comments INR (test code = INR) 1.01 1 0.85-1.17 [facility] AllianceLykkdorPCSTWNETYQ1807-68-37 08:06:00 Test Item Value Reference Range Interpretation Comments PTT (test code = PTT) 29.1 s 22.9-35.8 [facility] HospitalOxjgfcwELOZUESZNP3326-94-43 08:06:00 Test Item Value Reference Range Interpretation Comments Segs (test code = Segs) 88.3 45.0-75.0 [facility] AllianceFpowjuiBNVTSVARHL7149-41-54 08:06:00 Test Item Value Reference Range Interpretation Comments Lymphocytes (test code = Lymphocytes) 7.7 20.0-40.0 [facility] AllianceOphollqKYYPSKQEUX7006-22-68 08:06:00 Test Item Value Reference Range Interpretation Comments Monocytes (test code = Monocytes) 3.7 2.0-12.0 [facility] AllianceBnwowldOFDYHGQLJW1367-74-29 08:06:00 Test Item Value Reference Range Interpretation Comments Basophils (test code = 0.3 See_Comment [Aut omated message] The Basophils) system which ge nerated this result tra nsmitted reference range : <=1.0. The reference r katie was not used to int erpret this result as normal/abnormal . [facility] AllianceUdqgcnuDDDOCGQZCK4189-34-85 08:06:00 Test Item Value Reference Range Interpretation Comments Neutrophils # (test code = Neutrophils 9.9 1.5-8.1 #) [facility] AllianceWmycvwtMASFTRXWCH5531-51-16 08:06:00 Test Item Value Reference Range Interpretation Comments Lymphocytes # (test code = Lymphocytes 0.9 1.0-5.5 #) [facility] AllianceQgdubxrZPTFCQXKXE3515-49-00 08:06:00 Test Item Value Reference Range Interpretation Comments Monocytes # (test code 0.4 See_Comment [Aut omated message] The = Monocytes #) system which generated this result tra nsmitted reference range : <=0.8. The reference r katie was not used to int erpret this result as normal/abnormal . [facility]2021-05-05 08:06:00 Test Item Value Reference Range Interpretation Comments Ca Ion WB (test code = Ca Ion WB) 1.08 1.05-1.25 [facility] FMPPFXA8418-76-99 08:06:00 Test Item Value Reference Range Interpretation Comments Ca Norm WB (test code = Ca Norm WB) 1.12 1.05-1.25 [place] 699391-05-04 17:52:00 Test Item Value Reference Range Interpretation Comments Magnesium Lvl (test code = Magnesium 2.1 1.8-2.4 Lvl) [place] 699391-05-04 17:52:00 Test Item Value Reference Range Interpretation Comments Phosphorus (test code = Phosphorus) 2.5 2.5-4.5 [place] 699391-05-04 17:52:00 Test Item Value Reference Range Interpretation Comments Glucose Lvl (test code = Glucose Lvl) 158 70-99 [place] 699391-05-04 17:52:00 Test Item Value Reference Range Interpretation Comments BUN (test code = BUN) 26 7-22 [place] 699391-05-04 17:52:00 Test Item Value Reference Range Interpretation Comments Creatinine Lvl (test code = Creatinine 0.90 0.50-1.40 Lvl) [facility]2021-05-04 17:52:00 Test Item Value Reference Range Interpretation Comments Sodium Lvl (test code = Sodium Lvl) 141 135-145 [place] 699391-05-04 17:52:00 Test Item Value Reference Range Interpretation Comments Potassium Lvl (test code = Potassium 4.1 3.5-5.1 Lvl) [facility]2021-05-04 17:52:00 Test Item Value Reference Range Interpretation Comments Chloride Lvl (test code = Chloride Lvl) 107 95-109 [place] 699391-05-04 17:52:00 Test Item Value Reference Range Interpretation Comments CO2 (test code = CO2) 29 24-32 [place] 699391-05-04 17:52:00 Test Item Value Reference Range Interpretation Comments Calcium Lvl (test code = Calcium Lvl) 8.0 8.5-10.5 [place] 699391-05-04 17:52:00 Test Item Value Reference Range Interpretation Comments AGAP (test code = AGAP) 9.1 10.0-20.0 [facility]2021-05-04 17:52:00 Test Item Value Reference Range Interpretation Comments eGFR (test code = eGFR) 66 [facility] AllianceYapzfhqEQLNTTQGFD5983-76-39 17:52:00 Test Item Value Reference Range Interpretation Comments PT (test code = PT) 14.8 s 12.0-14.7 [place] 605121-05-04 17:52:00 Test Item Value Reference Range Interpretation Comments INR (test code = INR) 1.18 1 0.85-1.17 [place] 605121-05-04 17:52:00 Test Item Value Reference Range Interpretation Comments PTT (test code = PTT) 30.8 s 22.9-35.8 [facility] AllianceVtzegtdJRWYYRQHPK2852-18-59 17:52:00 Test Item Value Reference Range Interpretation Comments Fibrinogen Lvl (test code = Fibrinogen 209 230-510 Lvl) [facility] AllianceMxctbtsGFUNUARGLL7583-36-91 17:52:00 Test Item Value Reference Range Interpretation Comments Segs (test code = Segs) 76.6 45.0-75.0 [place] 605121-05-04 17:52:00 Test Item Value Reference Range Interpretation Comments Lymphocytes (test code = Lymphocytes) 17.6 20.0-40.0 [place] 605121-05-04 17:52:00 Test Item Value Reference Range Interpretation Comments Monocytes (test code = Monocytes) 2.4 2.0-12.0 [place] [address]-05-04 17:52:00 Test Item Value Reference Range Interpretation Comments Eosinophils (test code = 2.5 See_Comment [A utomated message] The Eosinophils) system which ge nerated this result tra nsmitted reference range : <=4.0. The reference r katie was not used to int erpret this result as normal/abnormal . [place] 605121-05-04 17:52:00 Test Item Value Reference Range Interpretation Comments Basophils (test code = 0.9 See_Comment [Aut omated message] The Basophils) system which ge nerated this result tra nsmitted reference range : <=1.0. The reference r katie was not used to int erpret this result as normal/abnormal . [place] [address]-05-04 17:52:00 Test Item Value Reference Range Interpretation Comments Neutrophils # (test code = Neutrophils 5.3 1.5-8.1 #) [place] 605121-05-04 17:52:00 Test Item Value Reference Range Interpretation Comments Lymphocytes # (test code = Lymphocytes 1.2 1.0-5.5 #) [place] 605121-05-04 17:52:00 Test Item Value Reference Range Interpretation Comments Monocytes # (test code 0.2 See_Comment [Aut omated message] The = Monocytes #) system which generated this result tra nsmitted reference range : <=0.8. The reference r katie was not used to int erpret this result as normal/abnormal . [place] [address]-05-04 17:52:00 Test Item Value Reference Range Interpretation Comments Eosinophils # (test code 0.2 See_Comment [A utomated message] The = Eosinophils #) system whic h generated this result tra nsmitted reference range : <=0.5. The reference r katie was not used to int erpret this result as normal/abnormal . [place] [address]-05-04 17:52:00 Test Item Value Reference Range Interpretation Comments Basophils # (test code 0.1 See_Comment [Aut omated message] The = Basophils #) system which generated this result tra nsmitted reference range : <=0.2. The reference r katie was not used to int erpret this result as normal/abnormal . [facility] AllianceJzvusmtXKWQNPFHDY8334-32-13 17:52:00 Test Item Value Reference Range Interpretation Comments WBC X 10x3 (test code = WBC X 10x3) 6.9 3.7-10.4 [place] 605121-05-04 17:52:00 Test Item Value Reference Range Interpretation Comments RBC X 10x6 (test code = RBC X 10x6) 3.02 4.20-5.40 [place] [address]-05-04 17:52:00 Test Item Value Reference Range Interpretation Comments Hgb (test code = Hgb) 9.6 12.0-16.0 [place] [address]-05-04 17:52:00 Test Item Value Reference Range Interpretation Comments Hct (test code = Hct) 28.6 36.0-48.0 [facility] CenterYjjjhruHNJDOHPFMG0103-02-17 17:52:00 Test Item Value Reference Range Interpretation Comments MCV (test code = MCV) 94.8 80.0-98.0 [facility] CenterBcjbuhkRLPCDVKGJX4207-98-98 17:52:00 Test Item Value Reference Range Interpretation Comments MCH (test code = MCH) 31.9 pg 27.0-31.0 [facility] CenterZdkabseUKCELLJYIJ3228-35-93 17:52:00 Test Item Value Reference Range Interpretation Comments MCHC (test code = MCHC) 33.7 32.0-36.0 [facility] CenterYbfijndMXPNPRBFQO5251-85-13 17:52:00 Test Item Value Reference Range Interpretation Comments RDW (test code = RDW) 12.6 11.5-14.5 [facility] CenterUazvzuqCCRLRNCOUD8996-63-97 17:52:00 Test Item Value Reference Range Interpretation Comments Platelet (test code = Platelet) 170 133-450 [facility] CenterRwytgraRYHWUMKXMK2403-29-90 17:52:00 Test Item Value Reference Range Interpretation Comments MPV (test code = MPV) 7.8 7.4-10.4 [facility] CenterYvgilclRXLXRJ5533-37-46 17:52:00 Test Item Value Reference Range Interpretation Comments Trig (test code = Trig) 58 [facility] CenterRbevdxcAPNSLW4362-27-35 17:52:00 Test Item Value Reference Range Interpretation Comments Chol (test code = Chol) 146 [facility] CenterTgcmitrIFQDKE3645-68-64 17:52:00 Test Item Value Reference Range Interpretation Comments HDL (test code = HDL) 44 [facility] CenterAagfatfKZBASL8335-38-41 17:52:00 Test Item Value Reference Range Interpretation Comments CHD Risk (test code = CHD Risk) 3.32 1 3.90-5.80 [facility] CenterJwgymixDGRPDW4409-15-42 17:52:00 Test Item Value Reference Range Interpretation Comments LDL (Calculated) (test code = LDL 90 (Calculated)) [facility] CenterHbdjhqlDTUHMO8035-16-46 17:52:00 Test Item Value Reference Range Interpretation Comments VLDL (test code = VLDL) [address] CenterannPARATHYROID WEDIRLI4546-20-43 17:52:00 Test Item Value Reference Range Interpretation Comments Ca Ion WB (test code = Ca Ion WB) 1.03 1.05-1.25 [facility] CenterPARATHYROID WGFQLWN9937-52-73 17:52:00 Test Item Value Reference Range Interpretation Comments Ca Norm WB (test code = Ca Norm WB) 1.04 1.05-1.25 [facility]2021-05-04 17:52:00 Test Item Value Reference Range Interpretation Comments Magnesium Lvl (test code = Magnesium 2.1 1.8-2.4 Lvl) [facility]2021-05-04 17:52:00 Test Item Value Reference Range Interpretation Comments Phosphorus (test code = Phosphorus) 2.5 2.5-4.5 [facility]2021-05-04 17:52:00 Test Item Value Reference Range Interpretation Comments Glucose Lvl (test code = Glucose Lvl) 158 70-99 [facility]2021-05-04 17:52:00 Test Item Value Reference Range Interpretation Comments BUN (test code = BUN) 26 7-22 [facility]2021-05-04 17:52:00 Test Item Value Reference Range Interpretation Comments Creatinine Lvl (test code = Creatinine 0.90 0.50-1.40 Lvl) [facility]2021-05-04 17:52:00 Test Item Value Reference Range Interpretation Comments Sodium Lvl (test code = Sodium Lvl) 141 135-145 [facility]2021-05-04 17:52:00 Test Item Value Reference Range Interpretation Comments Potassium Lvl (test code = Potassium 4.1 3.5-5.1 Lvl) [facility]2021-05-04 17:52:00 Test Item Value Reference Range Interpretation Comments Chloride Lvl (test code = Chloride Lvl) 107 95-109 [facility]2021-05-04 17:52:00 Test Item Value Reference Range Interpretation Comments CO2 (test code = CO2) 29 24-32 [facility]2021-05-04 17:52:00 Test Item Value Reference Range Interpretation Comments Calcium Lvl (test code = Calcium Lvl) 8.0 8.5-10.5 [facility]2021-05-04 17:52:00 Test Item Value Reference Range Interpretation Comments AGAP (test code = AGAP) 9.1 10.0-20.0 [facility]2021-05-04 17:52:00 Test Item Value Reference Range Interpretation Comments eGFR (test code = eGFR) 66 [facility] AllianceYqunzdbYQGGISPDAC7624-86-08 17:52:00 Test Item Value Reference Range Interpretation Comments PT (test code = PT) 14.8 s 12.0-14.7 [place] [address]-05-04 17:52:00 Test Item Value Reference Range Interpretation Comments INR (test code = INR) 1.18 1 0.85-1.17 [place] [address]-05-04 17:52:00 Test Item Value Reference Range Interpretation Comments PTT (test code = PTT) 30.8 s 22.9-35.8 [place] [address]-05-04 17:52:00 Test Item Value Reference Range Interpretation Comments Fibrinogen Lvl (test code = Fibrinogen 209 230-510 Lvl) [place] 605121-05-04 17:52:00 Test Item Value Reference Range Interpretation Comments Segs (test code = Segs) 76.6 45.0-75.0 [place] [address]-05-04 17:52:00 Test Item Value Reference Range Interpretation Comments Lymphocytes (test code = Lymphocytes) 17.6 20.0-40.0 [place] [address]-05-04 17:52:00 Test Item Value Reference Range Interpretation Comments Monocytes (test code = Monocytes) 2.4 2.0-12.0 [place] 605121-05-04 17:52:00 Test Item Value Reference Range Interpretation Comments Eosinophils (test code = 2.5 See_Comment [A utomated message] The Eosinophils) system which ge nerated this result tra nsmitted reference range : <=4.0. The reference r katie was not used to int erpret this result as normal/abnormal . [place] 605121-05-04 17:52:00 Test Item Value Reference Range Interpretation Comments Basophils (test code = 0.9 See_Comment [Aut omated message] The Basophils) system which ge nerated this result tra nsmitted reference range : <=1.0. The reference r katie was not used to int erpret this result as normal/abnormal . [facility] AllianceYxuhwpiSRXGOVVUAU3053-47-75 17:52:00 Test Item Value Reference Range Interpretation Comments Neutrophils # (test code = Neutrophils 5.3 1.5-8.1 #) [place] [address]-05-04 17:52:00 Test Item Value Reference Range Interpretation Comments Lymphocytes # (test code = Lymphocytes 1.2 1.0-5.5 #) [place] 605121-05-04 17:52:00 Test Item Value Reference Range Interpretation Comments Monocytes # (test code 0.2 See_Comment [Aut omated message] The = Monocytes #) system which generated this result tra nsmitted reference range : <=0.8. The reference r katie was not used to int erpret this result as normal/abnormal . [place] [address]-05-04 17:52:00 Test Item Value Reference Range Interpretation Comments Eosinophils # (test code 0.2 See_Comment [A utomated message] The = Eosinophils #) system whic h generated this result tra nsmitted reference range : <=0.5. The reference r katie was not used to int erpret this result as normal/abnormal . [place] 605121-05-04 17:52:00 Test Item Value Reference Range Interpretation Comments Basophils # (test code 0.1 See_Comment [Aut omated message] The = Basophils #) system which generated this result tra nsmitted reference range : <=0.2. The reference r katie was not used to int erpret this result as normal/abnormal . [place] 605121-05-04 17:52:00 Test Item Value Reference Range Interpretation Comments WBC X 10x3 (test code = WBC X 10x3) 6.9 3.7-10.4 [place] 605121-05-04 17:52:00 Test Item Value Reference Range Interpretation Comments RBC X 10x6 (test code = RBC X 10x6) 3.02 4.20-5.40 [place] [address]-05-04 17:52:00 Test Item Value Reference Range Interpretation Comments Hgb (test code = Hgb) 9.6 12.0-16.0 [place] [address]-05-04 17:52:00 Test Item Value Reference Range Interpretation Comments Hct (test code = Hct) 28.6 36.0-48.0 [place] [address]-05-04 17:52:00 Test Item Value Reference Range Interpretation Comments MCV (test code = MCV) 94.8 80.0-98.0 [facility] HospitalYoumdliOQQXMQBPKF6152-44-67 17:52:00 Test Item Value Reference Range Interpretation Comments MCH (test code = MCH) 31.9 pg 27.0-31.0 [facility] HospitalLxfmtcxUIEHAEEHTH0302-52-00 17:52:00 Test Item Value Reference Range Interpretation Comments MCHC (test code = MCHC) 33.7 32.0-36.0 [facility] HospitalPhprvedSDOHLZGTEX7605-71-31 17:52:00 Test Item Value Reference Range Interpretation Comments RDW (test code = RDW) 12.6 11.5-14.5 [facility] HospitalAlznldwVDLQTECZSE1609-70-71 17:52:00 Test Item Value Reference Range Interpretation Comments Platelet (test code = Platelet) 170 133-450 [facility] HospitalFzrdltsOPZKYOWSGN2395-35-05 17:52:00 Test Item Value Reference Range Interpretation Comments MPV (test code = MPV) 7.8 7.4-10.4 [facility] CenterQhezkvlYWRDHT4241-11-34 17:52:00 Test Item Value Reference Range Interpretation Comments Trig (test code = Trig) 58 [facility] CenterGhzkyjdAOXQAZ4643-58-54 17:52:00 Test Item Value Reference Range Interpretation Comments Chol (test code = Chol) 146 [facility] CenterTznczmiTDZMRU3862-62-64 17:52:00 Test Item Value Reference Range Interpretation Comments HDL (test code = HDL) 44 [facility] CenterPwjzzenHJIFXP8113-08-97 17:52:00 Test Item Value Reference Range Interpretation Comments CHD Risk (test code = CHD Risk) 3.32 1 3.90-5.80 [facility] CenterCjmtaikUCLXAT3701-45-81 17:52:00 Test Item Value Reference Range Interpretation Comments LDL (Calculated) (test code = LDL 90 (Calculated)) [facility] CenterBoncihgTHFDUL1255-31-83 17:52:00 Test Item Value Reference Range Interpretation Comments VLDL (test code = VLDL) [address] [facility] CenterannPARATHYROID [id number] 17:52:00 Test Item Value Reference Range Interpretation Comments Ca Ion WB (test code = Ca Ion WB) 1.03 1.05-1.25 [facility] CenterannPARATHYROID TSMIRYJ1195-59-16 17:52:00 Test Item Value Reference Range Interpretation Comments Ca Norm WB (test code = Ca Norm WB) 1.04 1.05-1.[address] [facility]OLATE:ORDQN:[id number] 19:50:00 Test Item Value Reference Range Interpretation Comments Culture: Urine (test >100,000 CFU/mL code = Culture: Escherichia coli Urine) [facility]:ISOLATE:ORDQN:[id number] 19:50:00 Test Item Value Reference Range Interpretation Comments Escherichia coli (test code Escherichia coli = Escherichia coli) [facility]: [id number] 19:50:00 Test Item Value Reference Range Interpretation Comments Culture: Urine (test >100,000 CFU/mL code = Culture: Escherichia coli , Urine) Sensitivity Pending [facility]:ISOLATE:ORDQN:[id number] 19:50:00 Test Item Value Reference Range Interpretation Comments Culture: Urine (test >100,000 CFU/mL code = Culture: Escherichia coli Urine) [facility]PT:ISOLATE:ORDQN:[id number] 19:50:00 Test Item Value Reference Range Interpretation Comments Escherichia coli (test code Escherichia coli = Escherichia coli) [facility]: [id number] 19:50:00 Test Item Value Reference Range Interpretation Comments Culture: Urine (test >100,000 CFU/mL code = Culture: Escherichia coli , Urine) Sensitivity Pending [facility]BA[facility] - [id number] 18:18:00 Test Item Value Reference Range Interpretation Comments MRSA by PCR (test Negative (10/24/20 1:18 code = MRSA by PCR) PM) [facility] [id number] 18:18:00 Test Item Value Reference Range Interpretation Comments ABO/Rh (test code = ABO/Rh) A POS [facility] [id number] 18:18:00 Test Item Value Reference Range Interpretation Comments Antibody Scrn (test Negative (10/24/20 1:18 code = Antibody Scrn) PM) [facility] CenterEuhswhgWEQPLHLHWK6799-25-52 18:18:00 Test Item Value Reference Range Interpretation Comments Coronavirus (COVID-19) Not Detected (10/24/20 LUIZ (test code = 1:18 PM) Coronavirus (COVID-19) LUIZ) [facility] CenterBestimators LLCBACTERIAL - [id number] 18:18:00 Test Item Value Reference Range Interpretation Comments MRSA by PCR (test Negative (10/24/20 1:18 code = MRSA by PCR) PM) [facility] [employer] [id number] 18:18:00 Test Item Value Reference Range Interpretation Comments ABO/Rh (test code = ABO/Rh) A POS [facility] [employer] [id number] 18:18:00 Test Item Value Reference Range Interpretation Comments Antibody Scrn (test Negative (10/24/20 1:18 code = Antibody Scrn) PM) [facility] CenterZxzjiljQEMHNOGPES8262-40-40 18:18:00 Test Item Value Reference Range Interpretation Comments Coronavirus (COVID-19) Not Detected (10/24/20 LUIZ (test code = 1:18 PM) Coronavirus (COVID-19) LUIZ) [facility] [employer] [id number] 17:47:00 Test Item Value Reference Range Interpretation Comments RBC product (test code Product available = RBC product) (10/24/20 12:47 PM) [facility] [employer] [id number] 17:47:00 Test Item Value Reference Range Interpretation Comments Glucose Lvl (test code = Glucose Lvl) 110 70-99 [facility] [employer] [id number] 17:47:00 Test Item Value Reference Range Interpretation Comments BUN (test code = BUN) 42 7-22 [facility] [employer] [id number] 17:47:00 Test Item Value Reference Range Interpretation Comments Creatinine Lvl (test code = Creatinine 1.00 0.50-1.40 Lvl) [facility] [employer] [id number] 17:47:00 Test Item Value Reference Range Interpretation Comments Sodium Lvl (test code = Sodium Lvl) 139 135-145 [facility] [employer] [id number] 17:47:00 Test Item Value Reference Range Interpretation Comments Potassium Lvl (test code = Potassium 4.2 3.5-5.1 Lvl) [facility] [employer] [id number] 17:47:00 Test Item Value Reference Range Interpretation Comments Chloride Lvl (test code = Chloride Lvl) 103 95-109 [facility] [employer] [id number] 17:47:00 Test Item Value Reference Range Interpretation Comments CO2 (test code = CO2) 28 24-32 [place] 699391-04-30 17:47:00 Test Item Value Reference Range Interpretation Comments Calcium Lvl (test code = Calcium Lvl) 9.6 8.5-10.5 [place] 699391-04-30 17:47:00 Test Item Value Reference Range Interpretation Comments AGAP (test code = AGAP) 12.2 10.0-20.0 [place] 699391-04-30 17:47:00 Test Item Value Reference Range Interpretation Comments eGFR (test code = eGFR) 58 [place] 605121-04-30 17:47:00 Test Item Value Reference Range Interpretation Comments Segs (test code = Segs) 61.5 45.0-75.0 [place] 605121-04-30 17:47:00 Test Item Value Reference Range Interpretation Comments Lymphocytes (test code = Lymphocytes) 26.7 20.0-40.0 [place] 605121-04-30 17:47:00 Test Item Value Reference Range Interpretation Comments Monocytes (test code = Monocytes) 7.3 2.0-12.0 [place] 605121-04-30 17:47:00 Test Item Value Reference Range Interpretation Comments Eosinophils (test code = 3.1 See_Comment [A utomated message] The Eosinophils) system which ge nerated this result tra nsmitted reference range : <=4.0. The reference r katie was not used to int erpret this result as normal/abnormal . [place] 605121-04-30 17:47:00 Test Item Value Reference Range Interpretation Comments Basophils (test code = 1.4 See_Comment [Aut omated message] The Basophils) system which ge nerated this result tra nsmitted reference range : <=1.0. The reference r katie was not used to int erpret this result as normal/abnormal . [place] 605121-04-30 17:47:00 Test Item Value Reference Range Interpretation Comments Neutrophils # (test code = Neutrophils 4.1 1.5-8.1 #) [place] 605121-04-30 17:47:00 Test Item Value Reference Range Interpretation Comments Lymphocytes # (test code = Lymphocytes 1.8 1.0-5.5 #) [place] 605121-04-30 17:47:00 Test Item Value Reference Range Interpretation Comments Monocytes # (test code 0.5 See_Comment [Aut omated message] The = Monocytes #) system which generated this result tra nsmitted reference range : <=0.8. The reference r katie was not used to int erpret this result as normal/abnormal . [place] 605121-04-30 17:47:00 Test Item Value Reference Range Interpretation Comments Eosinophils # (test code 0.2 See_Comment [A utomated message] The = Eosinophils #) system whic h generated this result tra nsmitted reference range : <=0.5. The reference r katie was not used to int erpret this result as normal/abnormal . [place] 605121-04-30 17:47:00 Test Item Value Reference Range Interpretation Comments Basophils # (test code 0.1 See_Comment [Aut omated message] The = Basophils #) system which generated this result tra nsmitted reference range : <=0.2. The reference r kaite was not used to int erpret this result as normal/abnormal . [facility] AlliancePtewaljEWEIUSHFFM8291-83-75 17:47:00 Test Item Value Reference Range Interpretation Comments WBC X 10x3 (test code = WBC X 10x3) 6.6 3.7-10.4 [place] 605121-04-30 17:47:00 Test Item Value Reference Range Interpretation Comments RBC X 10x6 (test code = RBC X 10x6) 3.46 4.20-5.40 [place] 605121-04-30 17:47:00 Test Item Value Reference Range Interpretation Comments Hgb (test code = Hgb) 11.0 12.0-16.0 [place] [address]-04-30 17:47:00 Test Item Value Reference Range Interpretation Comments Hct (test code = Hct) 32.7 36.0-48.0 [place] 605121-04-30 17:47:00 Test Item Value Reference Range Interpretation Comments MCV (test code = MCV) 94.6 80.0-98.0 [place] 605121-04-30 17:47:00 Test Item Value Reference Range Interpretation Comments MCH (test code = MCH) 31.8 pg 27.0-31.0 [facility] AllianceTdljwyjAAOHAAZVRH8000-32-74 17:47:00 Test Item Value Reference Range Interpretation Comments MCHC (test code = MCHC) 33.7 32.0-36.0 [facility] AllianceTrfrofqXPTYMDRSZW0881-40-45 17:47:00 Test Item Value Reference Range Interpretation Comments RDW (test code = RDW) 12.4 11.5-14.5 [facility] AllianceUnjchebMLCGIRATDI9441-77-76 17:47:00 Test Item Value Reference Range Interpretation Comments Platelet (test code = Platelet) 201 133-450 [facility] AllianceVdeirkwKYIZOYXCIR6649-72-53 17:47:00 Test Item Value Reference Range Interpretation Comments MPV (test code = MPV) 7.9 7.4-10.4 [facility] AllianceFgqppxfYZVSQATPVU3557-96-04 17:47:00 Test Item Value Reference Range Interpretation Comments PT (test code = PT) 13.5 s 12.0-14.7 [facility] AllianceWbdtdziMPMXJEGDUT6439-25-35 17:47:00 Test Item Value Reference Range Interpretation Comments INR (test code = INR) 1.04 1 0.85-1.17 [facility] AllianceVactjpnXXFNSWLDSE7246-41-04 17:47:00 Test Item Value Reference Range Interpretation Comments PTT (test code = PTT) 27.3 s 22.9-35.8 [facility] AND [id number] 17:47:00 Test Item Value Reference Range Interpretation Comments UA Turbidity (test code Slight *ABN*(10/24/20 = UA Turbidity) 12:47 PM) [facility] AND [id number] 17:47:00 Test Item Value Reference Range Interpretation Comments UA Spec Grav (test code = UA Spec 1.012 1 Grav) [facility] AND [id number] 17:47:00 Test Item Value Reference Range Interpretation Comments UA pH (test code = UA pH) 6.0 1 5.0-8.0 [facility] AND [id number] 17:47:00 Test Item Value Reference Range Interpretation Comments UA Protein (test code = UA Negative mg/dL Protein) [facility] AND [id number] 17:47:00 Test Item Value Reference Range Interpretation Comments UA Glucose (test code = UA Negative mg/dL Glucose) [facility] AND [id number] 17:47:00 Test Item Value Reference Range Interpretation Comments UA Ketones (test code = UA Negative mg/dL Ketones) [facility] [id number] 17:47:00 Test Item Value Reference Range Interpretation Comments UA Bili (test code = Negative *NA*(10/24/20 UA Bili) 12:47 PM) [facility] [id number] 17:47:00 Test Item Value Reference Range Interpretation Comments UA Blood (test code = Negative (10/24/20 12:47 UA Blood) PM) [facility] AND [id number] 17:47:00 Test Item Value Reference Range Interpretation Comments UA Nitrite (test code Positive *ABN*(10/24/20 = UA Nitrite) 12:47 PM) [facility] AND [id number] 17:47:00 Test Item Value Reference Range Interpretation Comments UA Leuk Est (test code Large *ABN*(10/24/20 = UA Leuk Est) 12:47 PM) [facility] AND [id number] 17:47:00 Test Item Value Reference Range Interpretation Comments UA Sq Epi (test code = UA Sq Occasional /LPF Epi) [facility] AND [id number] 17:47:00 Test Item Value Reference Range Interpretation Comments UA WBC (test code = 70 See_Comment [Automa matteo message] The UA WBC) system which ge nerated this result transmit matteo reference range : <=5. The reference range was not used to interpr et this result as miesha l/abnormal. [facility] [id number] 17:47:00 Test Item Value Reference Range Interpretation Comments UA RBC (test code = 1 See_Comment [Automa matteo message] The UA RBC) system which ge nerated this result transmit matteo reference range : <=2. The reference range was not used to interpr et this result as miesha l/abnormal. [facility] [id number] 17:47:00 Test Item Value Reference Range Interpretation Comments UA Bacteria (test code = UA Many /HPF Bacteria) [facility] AND [id number] 17:47:00 Test Item Value Reference Range Interpretation Comments UA Color (test code = UA Color) Ltyellow [facility] AND [id number] 17:47:00 Test Item Value Reference Range Interpretation Comments UA Urobilinogen (test code = UA no gt 0.1-1.0 Urobilinogen) [facility] [id number] 17:47:00 Test Item Value Reference Range Interpretation Comments RBC product (test code Product available = RBC product) (10/24/20 12:47 PM) [facility]2021-04-30 17:47:00 Test Item Value Reference Range Interpretation Comments Glucose Lvl (test code = Glucose Lvl) 110 70-99 [facility]2021-04-30 17:47:00 Test Item Value Reference Range Interpretation Comments BUN (test code = BUN) 42 7-22 [facility]2021-04-30 17:47:00 Test Item Value Reference Range Interpretation Comments Creatinine Lvl (test code = Creatinine 1.00 0.50-1.40 Lvl) [facility]2021-04-30 17:47:00 Test Item Value Reference Range Interpretation Comments Sodium Lvl (test code = Sodium Lvl) 139 135-145 [facility]2021-04-30 17:47:00 Test Item Value Reference Range Interpretation Comments Potassium Lvl (test code = Potassium 4.2 3.5-5.1 Lvl) [facility]2021-04-30 17:47:00 Test Item Value Reference Range Interpretation Comments Chloride Lvl (test code = Chloride Lvl) 103 95-109 [facility]2021-04-30 17:47:00 Test Item Value Reference Range Interpretation Comments CO2 (test code = CO2) 28 24-32 [facility]2021-04-30 17:47:00 Test Item Value Reference Range Interpretation Comments Calcium Lvl (test code = Calcium Lvl) 9.6 8.5-10.5 [facility]2021-04-30 17:47:00 Test Item Value Reference Range Interpretation Comments AGAP (test code = AGAP) 12.2 10.0-20.0 [facility]2021-04-30 17:47:00 Test Item Value Reference Range Interpretation Comments eGFR (test code = eGFR) 58 [facility] AllianceRgazrohWKCBJVHXIB2239-48-76 17:47:00 Test Item Value Reference Range Interpretation Comments Segs (test code = Segs) 61.5 45.0-75.0 [place] 605121-04-30 17:47:00 Test Item Value Reference Range Interpretation Comments Lymphocytes (test code = Lymphocytes) 26.7 20.0-40.0 [place] [address]-04-30 17:47:00 Test Item Value Reference Range Interpretation Comments Monocytes (test code = Monocytes) 7.3 2.0-12.0 [place] [address]-04-30 17:47:00 Test Item Value Reference Range Interpretation Comments Eosinophils (test code = 3.1 See_Comment [A utomated message] The Eosinophils) system which ge nerated this result tra nsmitted reference range : <=4.0. The reference r katie was not used to int erpret this result as normal/abnormal . [place] [address]-04-30 17:47:00 Test Item Value Reference Range Interpretation Comments Basophils (test code = 1.4 See_Comment [Aut omated message] The Basophils) system which ge nerated this result tra nsmitted reference range : <=1.0. The reference r katie was not used to int erpret this result as normal/abnormal . [place] 605121-04-30 17:47:00 Test Item Value Reference Range Interpretation Comments Neutrophils # (test code = Neutrophils 4.1 1.5-8.1 #) [place] 605121-04-30 17:47:00 Test Item Value Reference Range Interpretation Comments Lymphocytes # (test code = Lymphocytes 1.8 1.0-5.5 #) [place] 605121-04-30 17:47:00 Test Item Value Reference Range Interpretation Comments Monocytes # (test code 0.5 See_Comment [Aut omated message] The = Monocytes #) system which generated this result tra nsmitted reference range : <=0.8. The reference r katie was not used to int erpret this result as normal/abnormal . [place] 605121-04-30 17:47:00 Test Item Value Reference Range Interpretation Comments Eosinophils # (test code 0.2 See_Comment [A utomated message] The = Eosinophils #) system whic h generated this result tra nsmitted reference range : <=0.5. The reference r katie was not used to int erpret this result as normal/abnormal . [facility] AllianceIwcdleeZFYPLVYBQP3081-30-48 17:47:00 Test Item Value Reference Range Interpretation Comments Basophils # (test code 0.1 See_Comment [Aut omated message] The = Basophils #) system which generated this result tra nsmitted reference range : <=0.2. The reference r katie was not used to int erpret this result as normal/abnormal . [facility] AllianceRhxfmmzKRTJEOHBAD4186-53-23 17:47:00 Test Item Value Reference Range Interpretation Comments WBC X 10x3 (test code = WBC X 10x3) 6.6 3.7-10.4 [facility] AllianceLtupyxkKTSOUIMULO6699-27-75 17:47:00 Test Item Value Reference Range Interpretation Comments RBC X 10x6 (test code = RBC X 10x6) 3.46 4.20-5.40 [place] 605121-04-30 17:47:00 Test Item Value Reference Range Interpretation Comments Hgb (test code = Hgb) 11.0 12.0-16.0 [facility] AllianceLxywizcEEDGNNVHXZ6126-98-80 17:47:00 Test Item Value Reference Range Interpretation Comments Hct (test code = Hct) 32.7 36.0-48.0 [facility] AllianceNbaeissCOQMWVTMMR0990-79-86 17:47:00 Test Item Value Reference Range Interpretation Comments MCV (test code = MCV) 94.6 80.0-98.0 [facility] AllianceDwhvbnmUOXFNZNTRV4521-72-05 17:47:00 Test Item Value Reference Range Interpretation Comments MCH (test code = MCH) 31.8 pg 27.0-31.0 [facility] AllianceOnayxxgXFMFAELQXC0712-50-63 17:47:00 Test Item Value Reference Range Interpretation Comments MCHC (test code = MCHC) 33.7 32.0-36.0 [place] 605121-04-30 17:47:00 Test Item Value Reference Range Interpretation Comments RDW (test code = RDW) 12.4 11.5-14.5 [facility] AllianceAxeimccLPODSENNLT7395-69-52 17:47:00 Test Item Value Reference Range Interpretation Comments Platelet (test code = Platelet) 201 133-450 [facility] AllianceEfilntnEFXKJXJXVD7869-97-97 17:47:00 Test Item Value Reference Range Interpretation Comments MPV (test code = MPV) 7.9 7.4-10.4 [facility] AllianceQaltjfeLUQBPBAKLY9654-32-97 17:47:00 Test Item Value Reference Range Interpretation Comments PT (test code = PT) 13.5 s 12.0-14.7 [facility] AllianceAtdkttgRFZFSORUAF1922-67-46 17:47:00 Test Item Value Reference Range Interpretation Comments INR (test code = INR) 1.04 1 0.85-1.17 [facility] AllianceLciteqgPHWRYKQXHR1092-78-55 17:47:00 Test Item Value Reference Range Interpretation Comments PTT (test code = PTT) 27.3 s 22.9-35.8 [facility] AND [id number] 17:47:00 Test Item Value Reference Range Interpretation Comments UA Turbidity (test code Slight *ABN*(10/24/20 = UA Turbidity) 12:47 PM) [facility] AND [id number] 17:47:00 Test Item Value Reference Range Interpretation Comments UA Spec Grav (test code = UA Spec 1.012 1 Grav) [facility] AND [id number] 17:47:00 Test Item Value Reference Range Interpretation Comments UA pH (test code = UA pH) 6.0 1 5.0-8.0 [facility] AND [id number] 17:47:00 Test Item Value Reference Range Interpretation Comments UA Protein (test code = UA Negative mg/dL Protein) [facility] AND [id number] 17:47:00 Test Item Value Reference Range Interpretation Comments UA Glucose (test code = UA Negative mg/dL Glucose) [facility] AND [id number] 17:47:00 Test Item Value Reference Range Interpretation Comments UA Ketones (test code = UA Negative mg/dL Ketones) [facility] AND [id number] 17:47:00 Test Item Value Reference Range Interpretation Comments UA Bili (test code = Negative *NA*(10/24/20 UA Bili) 12:47 PM) [facility] AND [id number] 17:47:00 Test Item Value Reference Range Interpretation Comments UA Blood (test code = Negative (10/24/20 12:47 UA Blood) PM) [facility] AND [id number] 17:47:00 Test Item Value Reference Range Interpretation Comments UA Nitrite (test code Positive *ABN*(10/24/20 = UA Nitrite) 12:47 PM) [facility] AND [id number] 17:47:00 Test Item Value Reference Range Interpretation Comments UA Leuk Est (test code Large *ABN*(10/24/20 = UA Leuk Est) 12:47 PM) [facility] AND [id number] 17:47:00 Test Item Value Reference Range Interpretation Comments UA Sq Epi (test code = UA Sq Occasional /LPF Epi) [facility] AND [id number] 17:47:00 Test Item Value Reference Range Interpretation Comments UA WBC (test code = 70 See_Comment [Automa matteo message] The UA WBC) system which ge nerated this result transmit matteo reference range : <=5. The reference range was not used to interpr et this result as miesha l/abnormal. [facility] AND [id number] 17:47:00 Test Item Value Reference Range Interpretation Comments UA RBC (test code = 1 See_Comment [Automa matteo message] The UA RBC) system which ge nerated this result transmit matteo reference range : <=2. The reference range was not used to interpr et this result as miesha l/abnormal. [facility] AND [id number] 17:47:00 Test Item Value Reference Range Interpretation Comments UA Bacteria (test code = UA Many /HPF Bacteria) [facility] AND [id number] 17:47:00 Test Item Value Reference Range Interpretation Comments UA Color (test code = UA Color) Ltyellow [facility] AND [id number] 17:47:00 Test Item Value Reference Range Interpretation Comments UA Urobilinogen (test code = UA no gt 0.1-1.0 Urobilinogen) [facility] [id number] 16:20:00 Test Item Value Reference Range Interpretation Comments POC Creatinine (test code = POC 1.1 0.5-1.4 Creatinine) [facility] [id number] 16:20:00 Test Item Value Reference Range Interpretation Comments eGFR (test code = eGFR) 52 [facility]2021-03-25 16:20:00 Test Item Value Reference Range Interpretation Comments POC Creatinine (test code = POC 1.1 0.5-1.4 Creatinine) [facility]2021-03-25 16:20:00 Test Item Value Reference Range Interpretation Comments eGFR (test code = eGFR) 52 [facility]2018-12-18 19:26:00 Test Item Value Reference Range Interpretation Comments eGFR (test code = eGFR) 67 [place] 532628-12-18 19:26:00 Test Item Value Reference Range Interpretation Comments POC Creatinine (test code = POC 0.9 0.5-1.4 Creatinine) [place] 532628-12-18 19:26:00 Test Item Value Reference Range Interpretation Comments eGFR (test code = eGFR) 67 [facility]2018-12-18 19:26:00 Test Item Value Reference Range Interpretation Comments POC Creatinine (test code = POC 0.9 0.5-1.4 Creatinine) [facility] AllianceJiylfhoIHTRXSHLKV8922-99-19 13:59:00 Test Item Value Reference Range Interpretation Comments Hgb (test code = Hgb) 8.2 12.0-16.0 [facility] AllianceIqvyvlwARFRVACOYV4334-56-52 13:59:00 Test Item Value Reference Range Interpretation Comments Hct (test code = Hct) 23.6 36.0-48.0 [facility] AllianceHttacvuWIAABXQYNI2057-73-51 13:59:00 Test Item Value Reference Range Interpretation Comments Hgb (test code = Hgb) 8.2 12.0-16.0 [facility] AllianceVgsbqrtPEJHBPTCSV4467-93-76 13:59:00 Test Item Value Reference Range Interpretation Comments Hct (test code = Hct) 23.6 36.0-48.0 [facility]2018-05-23 07:58:00 Test Item Value Reference Range Interpretation Comments eGFR (test code = eGFR) 78 [place] 532628-05-23 07:58:00 Test Item Value Reference Range Interpretation Comments AST (test code = AST) 29 See_Comment [Auto mated message] The system which ge nerated this result transmit matteo reference range : <=37. The reference range was not used to interpr et this result as miesha l/abnormal. [facility]2018-05-23 07:58:00 Test Item Value Reference Range Interpretation Comments ALT (test code = ALT) 22 See_Comment [Auto mated message] The system which ge nerated this result transmit matteo reference range : <=65. The reference range was not used to interpr et this result as miesha l/abnormal. [facility]2018-05-23 07:58:00 Test Item Value Reference Range Interpretation Comments Alk Phos (test code = Alk Phos) 41 39-136 [facility]2018-05-23 07:58:00 Test Item Value Reference Range Interpretation Comments Bili Total (test code = Bili Total) 0.5 0.2-1.3 [place] 532628-05-23 07:58:00 Test Item Value Reference Range Interpretation Comments Calcium Lvl (test code = Calcium Lvl) 7.3 8.5-10.5 [facility]2018-05-23 07:58:00 Test Item Value Reference Range Interpretation Comments CO2 (test code = CO2) 28 24-32 [place] 532628-05-23 07:58:00 Test Item Value Reference Range Interpretation Comments Total Protein (test code = Total 5.4 6.4-8.4 Protein) [facility]2018-05-23 07:58:00 Test Item Value Reference Range Interpretation Comments Albumin Lvl (test code = Albumin Lvl) 2.7 3.5-5.0 [facility]2018-05-23 07:58:00 Test Item Value Reference Range Interpretation Comments Glucose Lvl (test code = Glucose Lvl) 98 70-99 [facility]2018-05-23 07:58:00 Test Item Value Reference Range Interpretation Comments Potassium Lvl (test code = Potassium 3.5 3.5-5.1 Lvl) [facility]2018-05-23 07:58:00 Test Item Value Reference Range Interpretation Comments Sodium Lvl (test code = Sodium Lvl) 140 135-145 [facility]2018-05-23 07:58:00 Test Item Value Reference Range Interpretation Comments Chloride Lvl (test code = Chloride Lvl) 103 95-109 [facility]2018-05-23 07:58:00 Test Item Value Reference Range Interpretation Comments BUN (test code = BUN) 16 7-22 [facility]2018-05-23 07:58:00 Test Item Value Reference Range Interpretation Comments Creatinine Lvl (test code = Creatinine 0.80 0.50-1.40 Lvl) [facility]2018-05-23 07:58:00 Test Item Value Reference Range Interpretation Comments A/G Ratio (test code = A/G Ratio) 1.0 1 0.7-1.6 [place] 532628-05-23 07:58:00 Test Item Value Reference Range Interpretation Comments Globulin (test code = Globulin) 2.7 2.7-4.2 [place] 532628-05-23 07:58:00 Test Item Value Reference Range Interpretation Comments B/C Ratio (test code = B/C Ratio) 20 1 6-[address]05-23 07:58:00 Test Item Value Reference Range Interpretation Comments AGAP (test code = AGAP) 12.5 10.0-20.0 [place] 532628-05-23 07:58:00 Test Item Value Reference Range Interpretation Comments Phosphorus (test code = Phosphorus) 3.5 2.5-4.5 [place] 532628-05-23 07:58:00 Test Item Value Reference Range Interpretation Comments Magnesium Lvl (test code = Magnesium 2.1 1.8-2.4 Lvl) [address]05-23 07:58:00 Test Item Value Reference Range Interpretation Comments Platelet (test code = Platelet) 144 133-450 [facility] AllianceCwlapaoUIVTWDJQAC7957-68-58 07:58:00 Test Item Value Reference Range Interpretation Comments MCHC (test code = MCHC) 35.5 32.0-36.0 [place] [address]-05-23 07:58:00 Test Item Value Reference Range Interpretation Comments MPV (test code = MPV) 8.0 7.4-10.4 [place] [address]-05-23 07:58:00 Test Item Value Reference Range Interpretation Comments RDW (test code = RDW) 15.1 11.5-14.5 [place] [address]-05-23 07:58:00 Test Item Value Reference Range Interpretation Comments Hct (test code = Hct) 23.5 36.0-48.0 [place] [address]-05-23 07:58:00 Test Item Value Reference Range Interpretation Comments Hgb (test code = Hgb) 8.3 12.0-16.0 [facility]ty[facility]etoQASPSGFJMH3354-57-93 07:58:00 Test Item Value Reference Range Interpretation Comments MCH (test code = MCH) 32.2 pg 27.0-31.0 [facility] HospitalFpckdliAAOGGOBTNE4867-28-11 07:58:00 Test Item Value Reference Range Interpretation Comments MCV (test code = MCV) 90.8 80.0-98.0 [facility] HospitalRezsarjRYYGIFKQFJ0432-30-92 07:58:00 Test Item Value Reference Range Interpretation Comments RBC (test code = RBC) 2.59 4.20-5.40 [facility] HospitalQbqvtkpOZURSTQHHE0300-72-56 07:58:00 Test Item Value Reference Range Interpretation Comments WBC (test code = WBC) 9.8 3.7-10.4 [facility] WWTFGIQ9337-68-11 07:58:00 Test Item Value Reference Range Interpretation Comments Ca Ion WB (test code = Ca Ion WB) 0.94 1.05-1.25 [facility] [id number] 07:58:00 Test Item Value Reference Range Interpretation Comments Ca Norm WB (test code = Ca Norm WB) 0.98 1.05-1.25 [facility] HVWFSDEGB3913-22-54 07:58:00 Test Item Value Reference Range Interpretation Comments Hgb A1C (test code = Hgb A1C) 4.9 [facility] CenterSoWe[facility] [id number] 07:58:00 Test Item Value Reference Range Interpretation Comments eGFR (test code = eGFR) 78 [facility] WJMKN2608-77-42 07:58:00 Test Item Value Reference Range Interpretation Comments AST (test code = AST) 29 See_Comment [Auto mated message] The system which ge nerated this result transmit matteo reference range : <=37. The reference range was not used to interpr et this result as miesha l/abnormal. [facility] CenterMicrolaunchers [id number] 07:58:00 Test Item Value Reference Range Interpretation Comments ALT (test code = ALT) 22 See_Comment [Auto mated message] The system which ge nerated this result transmit matteo reference range : <=65. The reference range was not used to interpr et this result as miesha l/abnormal. [facility] CenterMicrolaunc[facility] [id number] 07:58:00 Test Item Value Reference Range Interpretation Comments Alk Phos (test code = Alk Phos) 41 39-136 [facility]2018-05-23 07:58:00 Test Item Value Reference Range Interpretation Comments Bili Total (test code = Bili Total) 0.5 0.2-1.3 [facility]2018-05-23 07:58:00 Test Item Value Reference Range Interpretation Comments Calcium Lvl (test code = Calcium Lvl) 7.3 8.5-10.5 [facility]2018-05-23 07:58:00 Test Item Value Reference Range Interpretation Comments CO2 (test code = CO2) 28 24-32 [facility]2018-05-23 07:58:00 Test Item Value Reference Range Interpretation Comments Total Protein (test code = Total 5.4 6.4-8.4 Protein) [facility]2018-05-23 07:58:00 Test Item Value Reference Range Interpretation Comments Albumin Lvl (test code = Albumin Lvl) 2.7 3.5-5.0 [facility]2018-05-23 07:58:00 Test Item Value Reference Range Interpretation Comments Glucose Lvl (test code = Glucose Lvl) 98 70-99 [facility]2018-05-23 07:58:00 Test Item Value Reference Range Interpretation Comments Potassium Lvl (test code = Potassium 3.5 3.5-5.1 Lvl) [facility]2018-05-23 07:58:00 Test Item Value Reference Range Interpretation Comments Sodium Lvl (test code = Sodium Lvl) 140 135-145 [facility]2018-05-23 07:58:00 Test Item Value Reference Range Interpretation Comments Chloride Lvl (test code = Chloride Lvl) 103 95-109 [facility]2018-05-23 07:58:00 Test Item Value Reference Range Interpretation Comments BUN (test code = BUN) 16 7-22 [facility]2018-05-23 07:58:00 Test Item Value Reference Range Interpretation Comments Creatinine Lvl (test code = Creatinine 0.80 0.50-1.40 Lvl) [facility]2018-05-23 07:58:00 Test Item Value Reference Range Interpretation Comments A/G Ratio (test code = A/G Ratio) 1.0 1 0.7-1.6 [facility]2018-05-23 07:58:00 Test Item Value Reference Range Interpretation Comments Globulin (test code = Globulin) 2.7 2.7-4.2 [facility]2018-05-23 07:58:00 Test Item Value Reference Range Interpretation Comments B/C Ratio (test code = B/C Ratio) 20 1 6-25 [facility]2018-05-23 07:58:00 Test Item Value Reference Range Interpretation Comments AGAP (test code = AGAP) 12.5 10.0-20.0 [facility]2018-05-23 07:58:00 Test Item Value Reference Range Interpretation Comments Phosphorus (test code = Phosphorus) 3.5 2.5-4.5 [facility]2018-05-23 07:58:00 Test Item Value Reference Range Interpretation Comments Magnesium Lvl (test code = Magnesium 2.1 1.8-2.4 Lvl) [facility] AllianceLklolonKEUCLOEZJE2571-63-31 07:58:00 Test Item Value Reference Range Interpretation Comments Platelet (test code = Platelet) 144 133-450 [facility] AllianceEwugqwsYXEEDLEKMZ8434-82-97 07:58:00 Test Item Value Reference Range Interpretation Comments MCHC (test code = MCHC) 35.5 32.0-36.0 [facility] AllianceWhmpjfqMOTBTLODYJ4051-61-54 07:58:00 Test Item Value Reference Range Interpretation Comments MPV (test code = MPV) 8.0 7.4-10.4 [facility] AllianceGyrjvoeQQSRHYOWEW0346-90-54 07:58:00 Test Item Value Reference Range Interpretation Comments RDW (test code = RDW) 15.1 11.5-14.5 [facility] AllianceJhquywmHSPEYSRMKW2599-91-53 07:58:00 Test Item Value Reference Range Interpretation Comments Hct (test code = Hct) 23.5 36.0-48.0 [facility] AllianceHbtzsybYPZQKNNDEY7358-79-52 07:58:00 Test Item Value Reference Range Interpretation Comments Hgb (test code = Hgb) 8.3 12.0-16.0 [facility] AllianceLnyrrjjVWPLILFUDI8890-04-38 07:58:00 Test Item Value Reference Range Interpretation Comments MCH (test code = MCH) 32.2 pg 27.0-31.0 [facility] AllianceCyzizedIIFGHJZQFU6964-62-88 07:58:00 Test Item Value Reference Range Interpretation Comments MCV (test code = MCV) 90.8 80.0-98.0 [facility] AllianceNwmpfjdRXPCLOLMZB6406-24-19 07:58:00 Test Item Value Reference Range Interpretation Comments RBC (test code = RBC) 2.59 4.20-5.40 [facility] AllianceUbsgntiTAHOGYTERB4330-68-92 07:58:00 Test Item Value Reference Range Interpretation Comments WBC (test code = WBC) 9.8 3.7-10.4 [facility]2018-05-23 07:58:00 Test Item Value Reference Range Interpretation Comments Ca Ion WB (test code = Ca Ion WB) 0.94 1.05-1.25 [facility]2018-05-23 07:58:00 Test Item Value Reference Range Interpretation Comments Ca Norm WB (test code = Ca Norm WB) 0.98 1.05-1.25 [facility] SXQFNPHGR3042-53-45 07:58:00 Test Item Value Reference Range Interpretation Comments Hgb A1C (test code = Hgb A1C) 4.9 [facility] AllianceFgmbmqgFEGLZZAGSN7361-28-45 19:26:00 Test Item Value Reference Range Interpretation Comments Hgb (test code = Hgb) 9.7 12.0-16.0 [facility] AllianceCqhegddXTNOJJYFMO9339-01-82 19:26:00 Test Item Value Reference Range Interpretation Comments Hgb (test code = Hgb) 9.7 12.0-16.0 [facility] KTOWHXG5448-76-17 10:31:00 Test Item Value Reference Range Interpretation Comments RBC product (test code Product available = RBC product) (11/15/17 5:31 AM) [facility] [id number] 10:31:00 Test Item Value Reference Range Interpretation Comments RBC product (test code Product available = RBC product) (11/15/17 5:31 AM) [facility] AllianceDaxucsyZSPPOWRHEY0792-53-67 09:42:00 Test Item Value Reference Range Interpretation Comments Segs-Bands # (test code = Segs-Bands #) 6.1 1.5-8.1 [facility] AllianceWengtzhFEGDTMFJOT1592-70-33 09:42:00 Test Item Value Reference Range Interpretation Comments Basophils # (test code 0.0 See_Comment [Aut omated message] The = Basophils #) system which generated this result tra nsmitted reference range : <=0.2. The reference r katie was not used to int erpret this result as normal/abnormal . [facility] AllianceFsgwmkgNLGAHYRZFP1049-28-16 09:42:00 Test Item Value Reference Range Interpretation Comments Eosinophils # (test code 0.0 See_Comment [A utomated message] The = Eosinophils #) system whic h generated this result tra nsmitted reference range : <=0.5. The reference r katie was not used to int erpret this result as normal/abnormal . [facility] AllianceIosntafEWQNVMPKGT8321-12-43 09:42:00 Test Item Value Reference Range Interpretation Comments Monocytes # (test code 0.5 See_Comment [Aut omated message] The = Monocytes #) system which generated this result tra nsmitted reference range : <=0.8. The reference r katie was not used to int erpret this result as normal/abnormal . [facility] AllianceMztgnmtZNNSIDQCOR6574-98-54 09:42:00 Test Item Value Reference Range Interpretation Comments Lymphocytes # (test code = Lymphocytes 0.9 1.0-5.5 #) [facility] AllianceYlnduigIMIDJPTAXM6706-69-75 09:42:00 Test Item Value Reference Range Interpretation Comments Eosinophils (test code = 0.6 See_Comment [A utomated message] The Eosinophils) system which ge nerated this result tra nsmitted reference range : <=4.0. The reference r katie was not used to int erpret this result as normal/abnormal . [facility] AllianceNwoyzwmACFVNEZIFQ5578-70-61 09:42:00 Test Item Value Reference Range Interpretation Comments Monocytes (test code = Monocytes) 6.4 2.0-12.0 [facility] AllianceBpoftmoNSFQWDXGRG8395-35-76 09:42:00 Test Item Value Reference Range Interpretation Comments Segs (test code = Segs) 81.3 45.0-75.0 [facility] AllianceRvrvoyrWREFMFGEWU3376-05-85 09:42:00 Test Item Value Reference Range Interpretation Comments Lymphocytes (test code = Lymphocytes) 11.6 20.0-40.0 [facility] AllianceIcapiaaCJLLNTKSDR3027-95-60 09:42:00 Test Item Value Reference Range Interpretation Comments Plt Morph (test code = Normal (11/15/17 4:42 Plt Morph) AM) [facility] AlliancePeryjwpXRTXQKTONN3839-77-91 09:42:00 Test Item Value Reference Range Interpretation Comments RBC Morph (test code = Normal (11/15/17 4:42 RBC Morph) AM) [facility] AllianceKgtqumgKUEMEBYUDL0415-82-31 09:42:00 Test Item Value Reference Range Interpretation Comments Basophils (test code = 0.1 See_Comment [Aut omated message] The Basophils) system which ge nerated this result tra nsmitted reference range : <=1.0. The reference r katie was not used to int erpret this result as normal/abnormal . [facility] AllianceOjjdleaSRBBKHUMOB7352-61-70 09:42:00 Test Item Value Reference Range Interpretation Comments WBC (test code = WBC) 7.5 3.7-10.4 [facility] AllianceYuhdyqiMVKHWNEQAP7878-46-31 09:42:00 Test Item Value Reference Range Interpretation Comments RDW (test code = RDW) 13.1 11.5-14.5 [facility] AllianceDqzsrjuUESYFDCHTP7113-32-86 09:42:00 Test Item Value Reference Range Interpretation Comments MCH (test code = MCH) 33.1 pg 27.0-31.0 [facility] AllianceDzhkdkiLJKWRNXNXE7255-55-33 09:42:00 Test Item Value Reference Range Interpretation Comments MCHC (test code = MCHC) 35.9 32.0-36.0 [facility] AllianceVytatezLXDWQLMDAM2214-22-80 09:42:00 Test Item Value Reference Range Interpretation Comments MCV (test code = MCV) 92.4 80.0-98.0 [facility] AllianceTnzlejqAZJQHCOBND9283-24-11 09:42:00 Test Item Value Reference Range Interpretation Comments Hct (test code = Hct) 16.7 36.0-48.0 [facility] AllianceRtlcpvcJOLXWNXTIP4886-05-55 09:42:00 Test Item Value Reference Range Interpretation Comments RBC (test code = RBC) 1.81 4.20-5.40 [facility] AllianceSqdwqasUZVFANFGLI3354-53-34 09:42:00 Test Item Value Reference Range Interpretation Comments Platelet (test code = Platelet) 168 133-450 [facility] AllianceLgzifocDFUXUADIJC2711-34-31 09:42:00 Test Item Value Reference Range Interpretation Comments MPV (test code = MPV) 7.6 7.4-10.4 [facility] AlliancePnjthxhJKDICRGLGU1373-54-54 09:42:00 Test Item Value Reference Range Interpretation Comments Segs-Bands # (test code = Segs-Bands #) 6.1 1.5-8.1 [facility] AllianceGgnlflfYSULKLJHWE6650-09-18 09:42:00 Test Item Value Reference Range Interpretation Comments Basophils # (test code 0.0 See_Comment [Aut omated message] The = Basophils #) system which generated this result tra nsmitted reference range : <=0.2. The reference r katie was not used to int erpret this result as normal/abnormal . [facility] AllianceMsoldffEUVGHMIANJ4108-01-39 09:42:00 Test Item Value Reference Range Interpretation Comments Eosinophils # (test code 0.0 See_Comment [A utomated message] The = Eosinophils #) system whic h generated this result tra nsmitted reference range : <=0.5. The reference r katie was not used to int erpret this result as normal/abnormal . [facility] AllianceGdrwlopVWRUHVORAC8483-85-01 09:42:00 Test Item Value Reference Range Interpretation Comments Monocytes # (test code 0.5 See_Comment [Aut omated message] The = Monocytes #) system which generated this result tra nsmitted reference range : <=0.8. The reference r katie was not used to int erpret this result as normal/abnormal . [facility] AllianceZgucryoBZGIZKDQOU7599-30-74 09:42:00 Test Item Value Reference Range Interpretation Comments Lymphocytes # (test code = Lymphocytes 0.9 1.0-5.5 #) [facility] AlliancePkcmbaaALXUWFGIVL7601-92-51 09:42:00 Test Item Value Reference Range Interpretation Comments Eosinophils (test code = 0.6 See_Comment [A utomated message] The Eosinophils) system which ge nerated this result tra nsmitted reference range : <=4.0. The reference r katie was not used to int erpret this result as normal/abnormal . [facility] AllianceOyqdxkwMQDBBQZNQI2371-94-11 09:42:00 Test Item Value Reference Range Interpretation Comments Monocytes (test code = Monocytes) 6.4 2.0-12.0 [facility] AllianceEmxtewkRAGVEQEMRW8559-28-37 09:42:00 Test Item Value Reference Range Interpretation Comments Segs (test code = Segs) 81.3 45.0-75.0 [place] 351958-05-22 09:42:00 Test Item Value Reference Range Interpretation Comments Lymphocytes (test code = Lymphocytes) 11.6 20.0-40.0 [facility] AllianceMqzxsblEMLFFUURBQ9515-97-53 09:42:00 Test Item Value Reference Range Interpretation Comments Plt Morph (test code = Normal (11/15/17 4:42 Plt Morph) AM) [facility] AllianceUnaljamWUMBFBWCLX1449-68-47 09:42:00 Test Item Value Reference Range Interpretation Comments RBC Morph (test code = Normal (11/15/17 4:42 RBC Morph) AM) [facility] AllianceGfizofuRSXSOOJSSX0938-56-54 09:42:00 Test Item Value Reference Range Interpretation Comments Basophils (test code = 0.1 See_Comment [Aut omated message] The Basophils) system which ge nerated this result tra nsmitted reference range : <=1.0. The reference r katie was not used to int erpret this result as normal/abnormal . [facility] AllianceEdsvyeuRUZZUDRKVW4219-87-45 09:42:00 Test Item Value Reference Range Interpretation Comments WBC (test code = WBC) 7.5 3.7-10.4 [place] [address]-05-22 09:42:00 Test Item Value Reference Range Interpretation Comments RDW (test code = RDW) 13.1 11.5-14.5 [facility] AllianceNxicrtvKVDKSYEITR8740-49-09 09:42:00 Test Item Value Reference Range Interpretation Comments MCH (test code = MCH) 33.1 pg 27.0-31.0 [facility] AllianceTxeyopjYZUBVUBUIK6804-26-35 09:42:00 Test Item Value Reference Range Interpretation Comments MCHC (test code = MCHC) 35.9 32.0-36.0 [place] [address]-05-22 09:42:00 Test Item Value Reference Range Interpretation Comments MCV (test code = MCV) 92.4 80.0-98.0 [facility] AllianceBblypzvWUZSTYXAWX2251-30-09 09:42:00 Test Item Value Reference Range Interpretation Comments Hct (test code = Hct) 16.7 36.0-48.0 [facility] AllianceWbmftciXGZMYQOFLY1491-20-13 09:42:00 Test Item Value Reference Range Interpretation Comments RBC (test code = RBC) 1.81 4.20-5.40 [place] [address]-05-22 09:42:00 Test Item Value Reference Range Interpretation Comments Platelet (test code = Platelet) 168 133-450 [facility] HospitalKueysirKGTWLLACMW3078-29-41 09:42:00 Test Item Value Reference Range Interpretation Comments MPV (test code = MPV) 7.6 7.4-10.4 [facility]2018-05-22 07:50:00 Test Item Value Reference Range Interpretation Comments Phosphorus (test code = Phosphorus) 0.6 2.5-4.5 [facility]2018-05-22 07:50:00 Test Item Value Reference Range Interpretation Comments Magnesium Lvl (test code = Magnesium 2.8 1.8-2.4 Lvl) [facility]2018-05-22 07:50:00 Test Item Value Reference Range Interpretation Comments eGFR (test code = eGFR) 48 [facility]2018-05-22 07:50:00 Test Item Value Reference Range Interpretation Comments AGAP (test code = AGAP) 15.3 10.0-20.0 [facility]2018-05-22 07:50:00 Test Item Value Reference Range Interpretation Comments Calcium Lvl (test code = Calcium Lvl) 9.1 8.5-10.5 [facility]2018-05-22 07:50:00 Test Item Value Reference Range Interpretation Comments Creatinine Lvl (test code = Creatinine 1.20 0.50-1.40 Lvl) [facility]2018-05-22 07:50:00 Test Item Value Reference Range Interpretation Comments Sodium Lvl (test code = Sodium Lvl) 143 135-145 [facility]2018-05-22 07:50:00 Test Item Value Reference Range Interpretation Comments Chloride Lvl (test code = Chloride Lvl) 108 95-109 [facility]2018-05-22 07:50:00 Test Item Value Reference Range Interpretation Comments Potassium Lvl (test code = Potassium 3.3 3.5-5.1 Lvl) [facility]2018-05-22 07:50:00 Test Item Value Reference Range Interpretation Comments CO2 (test code = CO2) 23 24-32 [facility]2018-05-22 07:50:00 Test Item Value Reference Range Interpretation Comments BUN (test code = BUN) 18 7-22 [facility]2018-05-22 07:50:00 Test Item Value Reference Range Interpretation Comments Glucose Lvl (test code = Glucose Lvl) 114 70-99 [facility] HospitalJmavuzvOSRHYSYLDQ3476-30-42 07:50:00 Test Item Value Reference Range Interpretation Comments Fibrinogen Lvl (test code = Fibrinogen 397 230-510 Lvl) [facility] AllianceSiysbuaXUAUAHXDYP0452-77-57 07:50:00 Test Item Value Reference Range Interpretation Comments PT (test code = PT) 15.7 s 12.0-14.7 [facility] HospitalUzqrkoxLQTHUFSSRX8666-36-50 07:50:00 Test Item Value Reference Range Interpretation Comments INR (test code = INR) 1.24 1 0.85-1.17 [facility] AllianceLbrlvbqEMQLJIBXQV1327-46-99 07:50:00 Test Item Value Reference Range Interpretation Comments PTT (test code = PTT) 30.3 s 22.9-35.8 [facility]PAR[facility] DXNZOAQ6866-65-31 07:50:00 Test Item Value Reference Range Interpretation Comments Ca Norm WB (test code = Ca Norm WB) 1.22 1.05-1.25 [facility] AZYLDZM1961-69-62 07:50:00 Test Item Value Reference Range Interpretation Comments Ca Ion WB (test code = Ca Ion WB) 1.13 1.05-1.25 [facility] AIDULUHFK6116-96-76 07:50:00 Test Item Value Reference Range Interpretation Comments Hgb A1C (test code = Hgb A1C) <3.5 % [facility] XSKYX7789-72-86 07:50:00 Test Item Value Reference Range Interpretation Comments Phosphorus (test code = Phosphorus) 0.6 2.5-4.5 [facility] WZWBR1442-52-64 07:50:00 Test Item Value Reference Range Interpretation Comments Magnesium Lvl (test code = Magnesium 2.8 1.8-2.4 Lvl) [facility]2018-05-22 07:50:00 Test Item Value Reference Range Interpretation Comments eGFR (test code = eGFR) 48 [facility]2018-05-22 07:50:00 Test Item Value Reference Range Interpretation Comments AGAP (test code = AGAP) 15.3 10.0-20.0 [facility]2018-05-22 07:50:00 Test Item Value Reference Range Interpretation Comments Calcium Lvl (test code = Calcium Lvl) 9.1 8.5-10.5 [facility]2018-05-22 07:50:00 Test Item Value Reference Range Interpretation Comments Creatinine Lvl (test code = Creatinine 1.20 0.50-1.40 Lvl) [facility]2018-05-22 07:50:00 Test Item Value Reference Range Interpretation Comments Sodium Lvl (test code = Sodium Lvl) 143 135-145 [facility]2018-05-22 07:50:00 Test Item Value Reference Range Interpretation Comments Chloride Lvl (test code = Chloride Lvl) 108 95-109 [facility]2018-05-22 07:50:00 Test Item Value Reference Range Interpretation Comments Potassium Lvl (test code = Potassium 3.3 3.5-5.1 Lvl) [facility]2018-05-22 07:50:00 Test Item Value Reference Range Interpretation Comments CO2 (test code = CO2) 23 24-32 [facility]2018-05-22 07:50:00 Test Item Value Reference Range Interpretation Comments BUN (test code = BUN) 18 7-22 [facility]2018-05-22 07:50:00 Test Item Value Reference Range Interpretation Comments Glucose Lvl (test code = Glucose Lvl) 114 70-99 [facility] AllianceMdyiyfgHOXEVUVICW6984-95-18 07:50:00 Test Item Value Reference Range Interpretation Comments Fibrinogen Lvl (test code = Fibrinogen 397 230-510 Lvl) [facility] AllianceSnqipdoIKYVCMEXVP0673-74-54 07:50:00 Test Item Value Reference Range Interpretation Comments PT (test code = PT) 15.7 s 12.0-14.7 [facility] AllianceAkeeurgRHLFONTEMC7849-47-87 07:50:00 Test Item Value Reference Range Interpretation Comments INR (test code = INR) 1.24 1 0.85-1.17 [facility] AllianceUxpbvemHETMEZTZCA8291-66-31 07:50:00 Test Item Value Reference Range Interpretation Comments PTT (test code = PTT) 30.3 s 22.9-35.8 [facility]PAR[facility]YROID [id number] 07:50:00 Test Item Value Reference Range Interpretation Comments Ca Norm WB (test code = Ca Norm WB) 1.22 1.05-1.25 [facility] CenterPARATHYROID SATLKRQ8782-00-11 07:50:00 Test Item Value Reference Range Interpretation Comments Ca Ion WB (test code = Ca Ion WB) 1.13 1.05-1.25 [facility] STMJVXVCN4660-92-43 07:50:00 Test Item Value Reference Range Interpretation Comments Hgb A1C (test code = Hgb A1C) <3.5 % [facility] AFPJOKH7813-31-56 04:43:00 Test Item Value Reference Range Interpretation Comments Cryo product (test Product available code = Cryo product) 1(11/14/17 11:43 PM) [facility] CenterBestimators LLCEarlyDoc [facility] [id number] 04:43:00 Test Item Value Reference Range Interpretation Comments Cryo product (test Product available code = Cryo product) 1(11/14/17 11:43 PM) [facility] CenterBestimators LLCEarlyDoc [facility] [id number] 01:57:00 Test Item Value Reference Range Interpretation Comments FFP product (test code Product available = FFP product) 2(11/14/17 8:57 PM) [facility] CenterBestimators LLCEarlyDoc [facility] [id number] 01:57:00 Test Item Value Reference Range Interpretation Comments FFP product (test code Product available = FFP product) 2(11/14/17 8:57 PM) [facility] CenterMicrolaunchers [id number] 01:21:00 Test Item Value Reference Range Interpretation Comments Lactic Acid Lvl (test code = Lactic 1.8 0.5-2.2 Acid Lvl) [facility] CenterChitdjrOPLVANXISD4627-80-36 01:21:00 Test Item Value Reference Range Interpretation Comments Fibrinogen Lvl (test code = Fibrinogen 136 230-510 Lvl) [facility] [employer] [id number] 01:21:00 Test Item Value Reference Range Interpretation Comments Lactic Acid Lvl (test code = Lactic 1.8 0.5-2.2 Acid Lvl) [facility] CenterTmtfivmTWLDSLOXDA4278-33-62 01:21:00 Test Item Value Reference Range Interpretation Comments Fibrinogen Lvl (test code = Fibrinogen 136 230-510 [address]vl) [facility] CenterMicrolaunchers [id number] 00:52:00 Test Item Value Reference Range Interpretation Comments Phosphorus (test code = Phosphorus) 3.4 2.5-4.5 [facility] [employer] [id number] 00:52:00 Test Item Value Reference Range Interpretation Comments Magnesium Lvl (test code = Magnesium 2.1 1.8-2.4 Lvl) [facility]2018-05-22 00:52:00 Test Item Value Reference Range Interpretation Comments Phosphorus (test code = Phosphorus) 3.4 2.5-4.5 [facility]2018-05-22 00:52:00 Test Item Value Reference Range Interpretation Comments Magnesium Lvl (test code = Magnesium 2.1 1.8-2.4 Lvl) [facility] [id number] 00:50:00 Test Item Value Reference Range Interpretation Comments MRSA by PCR (test Negative (11/14/17 7:50 code = MRSA by PCR) PM) [facility]2018-05-22 00:50:00 Test Item Value Reference Range Interpretation Comments eGFR (test code = eGFR) 78 [facility]2018-05-22 00:50:00 Test Item Value Reference Range Interpretation Comments Chloride Lvl (test code = Chloride Lvl) 109 95-109 [facility]2018-05-22 00:50:00 Test Item Value Reference Range Interpretation Comments Potassium Lvl (test code = Potassium 5.2 3.5-5.1 Lvl) [facility]2018-05-22 00:50:00 Test Item Value Reference Range Interpretation Comments CO2 (test code = CO2) 23 24-32 [facility]2018-05-22 00:50:00 Test Item Value Reference Range Interpretation Comments Calcium Lvl (test code = Calcium Lvl) 7.5 8.5-10.5 [facility]2018-05-22 00:50:00 Test Item Value Reference Range Interpretation Comments Glucose Lvl (test code = Glucose Lvl) 209 70-99 [facility]2018-05-22 00:50:00 Test Item Value Reference Range Interpretation Comments Sodium Lvl (test code = Sodium Lvl) 141 135-145 [facility]2018-05-22 00:50:00 Test Item Value Reference Range Interpretation Comments Creatinine Lvl (test code = Creatinine 0.80 0.50-1.40 Lvl) [facility]2018-05-22 00:50:00 Test Item Value Reference Range Interpretation Comments BUN (test code = BUN) 13 7-22 [facility]2018-05-22 00:50:00 Test Item Value Reference Range Interpretation Comments AGAP (test code = AGAP) 14.2 10.0-20.0 [facility] AllianceKlhlzexWLDSFSUMYL9751-29-66 00:50:00 Test Item Value Reference Range Interpretation Comments INR (test code = INR) 1.54 1 0.85-1.17 [facility] AllianceEbfsijzZEBLCFKJAF4622-63-62 00:50:00 Test Item Value Reference Range Interpretation Comments PT (test code = PT) 18.6 s 12.0-14.7 [facility] AllianceXkjhcyjZYSAZZASKB1830-31-79 00:50:00 Test Item Value Reference Range Interpretation Comments PTT (test code = PTT) 34.6 s 22.9-35.8 [facility] AllianceUanorqyELXEKGMTPY4472-79-53 00:50:00 Test Item Value Reference Range Interpretation Comments Platelet (test code = Platelet) 267 680-098 [facility] AllianceSidyvniFWYNFTMMGM2035-85-80 00:50:00 Test Item Value Reference Range Interpretation Comments RDW (test code = RDW) 13.0 11.5-14.5 [facility] AllianceNtbvwqgCKGMEGYNMR4381-94-48 00:50:00 Test Item Value Reference Range Interpretation Comments MPV (test code = MPV) 8.1 7.4-10.4 [facility] AllianceTcpxqiaAUSOJVKHLV5912-31-04 00:50:00 Test Item Value Reference Range Interpretation Comments RBC (test code = RBC) 3.56 4.20-5.40 [facility] AllianceNhibiltDDMLEVJNFD2312-25-25 00:50:00 Test Item Value Reference Range Interpretation Comments WBC (test code = WBC) 22.5 3.7-10.4 [facility] AllianceZqvqgcnGKSSMPVMSV3254-70-04 00:50:00 Test Item Value Reference Range Interpretation Comments MCHC (test code = MCHC) 33.8 32.0-36.0 [facility] AllianceLbbdpbcEMUTVYVMZY5466-51-39 00:50:00 Test Item Value Reference Range Interpretation Comments MCV (test code = MCV) 94.4 80.0-98.0 [facility] AllianceMecjiuzQKFPHWZQOD0122-21-09 00:50:00 Test Item Value Reference Range Interpretation Comments MCH (test code = MCH) 32.0 pg 27.0-31.0 [facility] AllianceVkhtjskPPVYDCMDPF9940-18-23 00:50:00 Test Item Value Reference Range Interpretation Comments Eosinophils (test code = 2.0 See_Comment [A utomated message] The Eosinophils) system which ge nerated this result tra nsmitted reference range : <=4.0. The reference r katie was not used to int erpret this result as normal/abnormal . [facility] AllianceMivipwxIVFTFSATBC4082-12-49 00:50:00 Test Item Value Reference Range Interpretation Comments Plt Morph (test code = Normal (11/14/17 7:50 Plt Morph) PM) [facility] AllianceXaactwgORHVEZGJWX3824-32-52 00:50:00 Test Item Value Reference Range Interpretation Comments Atypical Lymphs (test code = Atypical 0.0 Lymphs) [facility] AllianceXtesifeXTOMDZMUCC4254-73-01 00:50:00 Test Item Value Reference Range Interpretation Comments RBC Morph (test code = Normal (11/14/17 7:50 RBC Morph) PM) [facility] AllianceAlxldwgPUZHVIEAPY1230-37-20 00:50:00 Test Item Value Reference Range Interpretation Comments Lymphocytes # (test code = Lymphocytes 2.2 1.0-5.5 #) [facility] AllianceMeiaplmDELKXDAIAM9997-17-69 00:50:00 Test Item Value Reference Range Interpretation Comments Segs-Bands # (test code = Segs-Bands #) 19.1 1.5-8.1 [facility] AllianceSgeypukHYUSJHXEEM9235-45-26 00:50:00 Test Item Value Reference Range Interpretation Comments Monocytes (test code = Monocytes) 3.0 2.0-12.0 [facility] AllianceSiergcfFJHUSNKEOR0084-95-08 00:50:00 Test Item Value Reference Range Interpretation Comments Lymphocytes (test code = Lymphocytes) 10.0 20.0-40.0 [facility] AllianceIqglbtaBZAULBHESI7683-91-32 00:50:00 Test Item Value Reference Range Interpretation Comments Bands (test code = 12.0 See_Comment [Automat ed message] The Bands) system which ge nerated this result transmit matteo reference range : <=11.0. The reference r katie was not used to interpr et this result as miesha l/abnormal. [facility] AllianceCozgjtuQYHHTLVAXJ9101-86-91 00:50:00 Test Item Value Reference Range Interpretation Comments Segs (test code = Segs) 73.0 45.0-75.0 [facility] CenterHrvhlswCRHUQYPNTK9602-53-76 00:50:00 Test Item Value Reference Range Interpretation Comments Monocytes # (test code 0.7 See_Comment [Aut omated message] The = Monocytes #) system which generated this result tra nsmitted reference range : <=0.8. The reference r katie was not used to int erpret this result as normal/abnormal . [facility]ATHYROID UCQOGAM9079-76-22 00:50:00 Test Item Value Reference Range Interpretation Comments Ca Ion WB (test code = Ca Ion WB) 0.96 1.05-1.25 [facility] PVAODUT8292-38-45 00:50:00 Test Item Value Reference Range Interpretation Comments Ca Norm WB (test code = Ca Norm WB) 0.97 1.05-1.25 [facility] CenterBACT[facility] - ANPCDJAW2064-41-33 00:50:00 Test Item Value Reference Range Interpretation Comments MRSA by PCR (test Negative (11/14/17 7:50 code = MRSA by PCR) PM) [facility] CenterSoWeTrip [id number] 00:50:00 Test Item Value Reference Range Interpretation Comments eGFR (test code = eGFR) 78 [facility]2018-05-22 00:50:00 Test Item Value Reference Range Interpretation Comments Chloride Lvl (test code = Chloride Lvl) 109 95-109 [facility]2018-05-22 00:50:00 Test Item Value Reference Range Interpretation Comments Potassium Lvl (test code = Potassium 5.2 3.5-5.1 Lvl) [facility]2018-05-22 00:50:00 Test Item Value Reference Range Interpretation Comments CO2 (test code = CO2) 23 24-32 [facility] CenterSoWe[facility] [id number] 00:50:00 Test Item Value Reference Range Interpretation Comments Calcium Lvl (test code = Calcium Lvl) 7.5 8.5-10.5 [facility] CenterSoWe[facility] [id number] 00:50:00 Test Item Value Reference Range Interpretation Comments Glucose Lvl (test code = Glucose Lvl) 209 70-99 [facility]2018-05-22 00:50:00 Test Item Value Reference Range Interpretation Comments Sodium Lvl (test code = Sodium Lvl) 141 135-145 [facility] CenterannCRAWLEY MEMORIAL HOSPITALRSSQY2460-90-04 00:50:00 Test Item Value Reference Range Interpretation Comments Creatinine Lvl (test code = Creatinine 0.80 0.50-1.40 Lvl) [facility]2018-05-22 00:50:00 Test Item Value Reference Range Interpretation Comments BUN (test code = BUN) 13 7-22 [facility]2018-05-22 00:50:00 Test Item Value Reference Range Interpretation Comments AGAP (test code = AGAP) 14.2 10.0-20.0 [facility] AllianceHcafpbqZGCCLUIRHZ7208-09-17 00:50:00 Test Item Value Reference Range Interpretation Comments INR (test code = INR) 1.54 1 0.85-1.17 [facility] AllianceDsmttitUMKEJNZYRJ9207-07-32 00:50:00 Test Item Value Reference Range Interpretation Comments PT (test code = PT) 18.6 s 12.0-14.7 [facility] AllianceTibmforGOEQNZBSYI1749-80-25 00:50:00 Test Item Value Reference Range Interpretation Comments PTT (test code = PTT) 34.6 s 22.9-35.8 [facility] AllianceQfeclifSGDGQPOHJC6543-59-58 00:50:00 Test Item Value Reference Range Interpretation Comments Platelet (test code = Platelet) 267 133-450 [facility] AllianceNoipdmgTFNNKDUIVN1261-40-47 00:50:00 Test Item Value Reference Range Interpretation Comments RDW (test code = RDW) 13.0 11.5-14.5 [facility] AllianceAegiqzeGCBPJKDIAD2862-85-57 00:50:00 Test Item Value Reference Range Interpretation Comments MPV (test code = MPV) 8.1 7.4-10.4 [facility] AllianceBijfkvqIJSKKEKVNG1482-27-53 00:50:00 Test Item Value Reference Range Interpretation Comments RBC (test code = RBC) 3.56 4.20-5.40 [facility] AllianceCuqroihLBRBYAMXJQ2863-98-77 00:50:00 Test Item Value Reference Range Interpretation Comments WBC (test code = WBC) 22.5 3.7-10.4 [facility] AllianceFoosrpcFMMXTSRVMZ3620-50-71 00:50:00 Test Item Value Reference Range Interpretation Comments MCHC (test code = MCHC) 33.8 32.0-36.0 [facility] AllianceBrzqgpeTCNCUDYJDE1417-14-47 00:50:00 Test Item Value Reference Range Interpretation Comments MCV (test code = MCV) 94.4 80.0-98.0 [facility] AllianceIhesktiECYKDCCJHL6925-76-71 00:50:00 Test Item Value Reference Range Interpretation Comments MCH (test code = MCH) 32.0 pg 27.0-31.0 [facility] AllianceSjtkpkiLCSAKGVHWU1236-60-99 00:50:00 Test Item Value Reference Range Interpretation Comments Eosinophils (test code = 2.0 See_Comment [A utomated message] The Eosinophils) system which ge nerated this result tra nsmitted reference range : <=4.0. The reference r katie was not used to int erpret this result as normal/abnormal . [facility] AllianceApdrupjBYLFDEUIGI2958-28-62 00:50:00 Test Item Value Reference Range Interpretation Comments Plt Morph (test code = Normal (11/14/17 7:50 Plt Morph) PM) [facility] AllianceFjsrywuTCDYHRUJTA7212-10-16 00:50:00 Test Item Value Reference Range Interpretation Comments Atypical Lymphs (test code = Atypical 0.0 Lymphs) [facility] AllianceLayrhtaHURGNCCSGH0926-17-43 00:50:00 Test Item Value Reference Range Interpretation Comments RBC Morph (test code = Normal (11/14/17 7:50 RBC Morph) PM) [facility] AllianceAjnsbtrVWVXEGVKEL5726-43-20 00:50:00 Test Item Value Reference Range Interpretation Comments Lymphocytes # (test code = Lymphocytes 2.2 1.0-5.5 #) [facility] AllianceKoztiedLMQHJQEBCX8527-89-53 00:50:00 Test Item Value Reference Range Interpretation Comments Segs-Bands # (test code = Segs-Bands #) 19.1 1.5-8.1 [facility] AllianceByofvedTXFJZIGUEW2997-10-65 00:50:00 Test Item Value Reference Range Interpretation Comments Monocytes (test code = Monocytes) 3.0 2.0-12.0 [facility] AllianceZwwgsxuRDKDEMXTFP2574-16-59 00:50:00 Test Item Value Reference Range Interpretation Comments Lymphocytes (test code = Lymphocytes) 10.0 20.0-40.0 [facility] AllianceEygsvlyVBIAJJTCEH2267-71-66 00:50:00 Test Item Value Reference Range Interpretation Comments Bands (test code = 12.0 See_Comment [Automat ed message] The Bands) system which ge nerated this result transmit matteo reference range : <=11.0. The reference r katie was not used to interpr et this result as miesha l/abnormal. [facility]EuvwujfFUTQSGFKPL8893-96-37 00:50:00 Test Item Value Reference Range Interpretation Comments Segs (test code = Segs) 73.0 45.0-75.0 [facility] HospitalGghamwtAMAVLMQRAY3148-28-38 00:50:00 Test Item Value Reference Range Interpretation Comments Monocytes # (test code 0.7 See_Comment [Aut omated message] The = Monocytes #) system which generated this result tra nsmitted reference range : <=0.8. The reference r katie was not used to int erpret this result as normal/abnormal . [facility]RO[facility] OPFMLLB9906-82-22 00:50:00 Test Item Value Reference Range Interpretation Comments Ca Ion WB (test code = Ca Ion WB) 0.96 1.05-1.25 [facility]RO[facility] WFEPOKJ9833-45-17 00:50:00 Test Item Value Reference Range Interpretation Comments Ca Norm WB (test code = Ca Norm WB) 0.97 1.05-1.25 [facility] FARVCAX2267-12-52 23:32:00 Test Item Value Reference Range Interpretation Comments RBC product (test code Product available = RBC product) (11/14/17 6:32 PM) [facility] BANK [id number] 23:32:00 Test Item Value Reference Range Interpretation Comments RBC product (test code Product available = RBC product) (11/14/17 6:32 PM) [facility] LQLYUJK7404-47-27 22:14:00 Test Item Value Reference Range Interpretation Comments Platelet product (test Product available code = Platelet (11/14/17 5:14 PM) product) [facility] BANK SMBLEWT8915-02-79 22:14:00 Test Item Value Reference Range Interpretation Comments Platelet product (test Product available code = Platelet (11/14/17 5:14 PM) product) [facility] BANK [id number] 20:51:00 Test Item Value Reference Range Interpretation Comments RBC product (test code Product available = RBC product) 3(11/14/17 3:51 PM) [facility] BANK TBGQFGG4914-56-62 20:51:00 Test Item Value Reference Range Interpretation Comments RBC product (test code Product available = RBC product) 3(11/14/17 3:51 PM) [facility] SDAKWYW9690-78-49 19:48:00 Test Item Value Reference Range Interpretation Comments Antibody Scrn (test Negative (11/14/17 2:48 code = Antibody Scrn) PM) [facility] [id number] 19:48:00 Test Item Value Reference Range Interpretation Comments ABO/Rh (test code = ABO/Rh) A POS [facility] AllianceJxcaudkUHATOPQWOP1303-76-32 19:48:00 Test Item Value Reference Range Interpretation Comments Lymphocytes # (test code = Lymphocytes 2.6 1.0-5.5 #) [facility] AllianceZaxkrfeRVYMGKPULV2709-64-45 19:48:00 Test Item Value Reference Range Interpretation Comments Segs-Bands # (test code = Segs-Bands #) 3.5 1.5-8.1 [facility] AllianceAzctllrCVVQEDRXLZ8936-93-20 19:48:00 Test Item Value Reference Range Interpretation Comments Basophils (test code = 0.5 See_Comment [Aut omated message] The Basophils) system which ge nerated this result tra nsmitted reference range : <=1.0. The reference r katie was not used to int erpret this result as normal/abnormal . [facility] AllianceShtewchFPWGJCNNGQ5369-94-67 19:48:00 Test Item Value Reference Range Interpretation Comments Eosinophils (test code = 3.9 See_Comment [A utomated message] The Eosinophils) system which ge nerated this result tra nsmitted reference range : <=4.0. The reference r katie was not used to int erpret this result as normal/abnormal . [facility] AllianceSgfcabgBAAIYFFRAR9913-49-44 19:48:00 Test Item Value Reference Range Interpretation Comments Monocytes # (test code 0.3 See_Comment [Aut omated message] The = Monocytes #) system which generated this result tra nsmitted reference range : <=0.8. The reference r katie was not used to int erpret this result as normal/abnormal . [facility] AllianceHttstoiFTLMMXRZSZ6857-90-89 19:48:00 Test Item Value Reference Range Interpretation Comments Basophils # (test code 0.0 See_Comment [Aut omated message] The = Basophils #) system which generated this result tra nsmitted reference range : <=0.2. The reference r katie was not used to int erpret this result as normal/abnormal . [facility] AllianceMhrnwegSVVPJBQTTJ6204-80-11 19:48:00 Test Item Value Reference Range Interpretation Comments Eosinophils # (test code 0.3 See_Comment [A utomated message] The = Eosinophils #) system whic h generated this result tra nsmitted reference range : <=0.5. The reference r katie was not used to int erpret this result as normal/abnormal . [facility] AllianceAbeodhuJIYQIYQDIU5015-69-86 19:48:00 Test Item Value Reference Range Interpretation Comments Plt Morph (test code = Normal (11/14/17 2:48 Plt Morph) PM) [facility] AllianceLrszhqdOIHVZPFIIQ4214-92-12 19:48:00 Test Item Value Reference Range Interpretation Comments RBC Morph (test code = Normal (11/14/17 2:48 RBC Morph) PM) [facility]PkztrcmONNUNTHJHX6018-07-00 19:48:00 Test Item Value Reference Range Interpretation Comments Monocytes (test code = Monocytes) 4.9 2.0-12.0 [facility] CenterYwxgynlEQCPGMMLAM6154-61-68 19:48:00 Test Item Value Reference Range Interpretation Comments Lymphocytes (test code = Lymphocytes) 38.1 20.0-40.0 [facility] CenterVvgmlnzYYVGCHUXOT6743-35-53 19:48:00 Test Item Value Reference Range Interpretation Comments Segs (test code = Segs) 52.6 45.0-75.0 [facility] CenterTow Choice AXUKXMO9299-50-81 19:48:00 Test Item Value Reference Range Interpretation Comments Antibody Scrn (test Negative (11/14/17 2:48 code = Antibody Scrn) PM) [facility] [employer] WYXJIPB6004-24-52 19:48:00 Test Item Value Reference Range Interpretation Comments ABO/Rh (test code = ABO/Rh) A POS [facility] CenterSlzmannRPMYJGDYJN7758-26-31 19:48:00 Test Item Value Reference Range Interpretation Comments Lymphocytes # (test code = Lymphocytes 2.6 1.0-5.5 #) [facility] AllianceOegiiwzZTAGKVJCDD4779-64-56 19:48:00 Test Item Value Reference Range Interpretation Comments Segs-Bands # (test code = Segs-Bands #) 3.5 1.5-8.1 [facility] CenterMadirhoWKAOVHAWEL2899-42-80 19:48:00 Test Item Value Reference Range Interpretation Comments Basophils (test code = 0.5 See_Comment [Aut omated message] The Basophils) system which ge nerated this result tra nsmitted reference range : <=1.0. The reference r katie was not used to int erpret this result as normal/abnormal . [facility] AllianceVsewhcdRGHHIZASHO3385-80-35 19:48:00 Test Item Value Reference Range Interpretation Comments Eosinophils (test code = 3.9 See_Comment [A utomated message] The Eosinophils) system which ge nerated this result tra nsmitted reference range : <=4.0. The reference r katie was not used to int erpret this result as normal/abnormal . [facility] AllianceFfauwmcEIHGHBUFRS2821-37-65 19:48:00 Test Item Value Reference Range Interpretation Comments Monocytes # (test code 0.3 See_Comment [Aut omated message] The = Monocytes #) system which generated this result tra nsmitted reference range : <=0.8. The reference r katie was not used to int erpret this result as normal/abnormal . [facility] AllianceFdpjsjmLKIDURAAZU7202-24-56 19:48:00 Test Item Value Reference Range Interpretation Comments Basophils # (test code 0.0 See_Comment [Aut omated message] The = Basophils #) system which generated this result tra nsmitted reference range : <=0.2. The reference r katie was not used to int erpret this result as normal/abnormal . [facility] AllianceFtxvoapYHCTZBPIDE8752-45-99 19:48:00 Test Item Value Reference Range Interpretation Comments Eosinophils # (test code 0.3 See_Comment [A utomated message] The = Eosinophils #) system wh h generated this result tra nsmitted reference range : <=0.5. The reference r katie was not used to int erpret this result as normal/abnormal . [facility] AllianceNfaotgyROKCHXWSFA6147-47-07 19:48:00 Test Item Value Reference Range Interpretation Comments Plt Morph (test code = Normal (11/14/17 2:48 Plt Morph) PM) [facility] AllianceCwjwmjhAVVETYSZNF9826-16-56 19:48:00 Test Item Value Reference Range Interpretation Comments RBC Morph (test code = Normal (11/14/17 2:48 RBC Morph) PM) [facility] AllianceAwzgblmVNWGZQOMHO0731-24-11 19:48:00 Test Item Value Reference Range Interpretation Comments Monocytes (test code = Monocytes) 4.9 2.0-12.0 [facility] AllianceYbsgvtcWKIBKOUFWX7707-91-47 19:48:00 Test Item Value Reference Range Interpretation Comments Lymphocytes (test code = Lymphocytes) 38.1 20.0-40.0 [facility] AllianceJltidhoYTBEWXIPWN1991-71-34 19:48:00 Test Item Value Reference Range Interpretation Comments Segs (test code = Segs) 52.6 45.0-75.0 [facility] AllianceSlmssdgQZOVNGDDOU6537-02-03 18:39:00 Test Item Value Reference Range Interpretation Comments INR (test code = INR) 1.07 1 0.85-1.17 [facility] AllianceLyvushrAIYSMFCRRJ9888-68-15 18:39:00 Test Item Value Reference Range Interpretation Comments PT (test code = PT) 13.9 s 12.0-14.7 [facility] HospitalFrjvnqsUPKZKC6889-45-53 18:39:00 Test Item Value Reference Range Interpretation Comments CHD Risk (test code = CHD Risk) 3.19 1 3.90-5.80 [facility] HospitalEacuefqFDSBSO5881-86-40 18:39:00 Test Item Value Reference Range Interpretation Comments VLDL (test code = VLDL) 24 1 [facility] HospitalYczlihcNYTYXQ9709-80-69 18:39:00 Test Item Value Reference Range Interpretation Comments LDL (Calculated) (test code = LDL 68 (Calculated)) [facility] HospitalUjfudieGWLEHZ9052-23-33 18:39:00 Test Item Value Reference Range Interpretation Comments Trig (test code = Trig) 119 [facility] HospitalSmbwlhnRXWQPJ2950-14-35 18:39:00 Test Item Value Reference Range Interpretation Comments HDL (test code = HDL) 42 [facility] HospitalImenlbeLMBYVR9988-26-72 18:39:00 Test Item Value Reference Range Interpretation Comments Chol (test code = Chol) 134 [facility] AllianceXlomcwmRRUFMGNFRA2851-34-36 18:39:00 Test Item Value Reference Range Interpretation Comments INR (test code = INR) 1.07 1 0.85-1.17 [facility] AllianceMxvzbuxNCKIFYPLPC7180-59-07 18:39:00 Test Item Value Reference Range Interpretation Comments PT (test code = PT) 13.9 s 12.0-14.7 [facility] HospitalHdhipdpNACRKF2110-69-11 18:39:00 Test Item Value Reference Range Interpretation Comments CHD Risk (test code = CHD Risk) 3.19 1 3.90-5.80 [facility] HospitalCfqwrmgXCOYSE4800-64-62 18:39:00 Test Item Value Reference Range Interpretation Comments VLDL (test code = VLDL) 24 1 [facility] HospitalJnreggfNPJZRA5955-41-18 18:39:00 Test Item Value Reference Range Interpretation Comments LDL (Calculated) (test code = LDL 68 (Calculated)) [facility] HospitalIvyvfgxFYQTZX3654-10-95 18:39:00 Test Item Value Reference Range Interpretation Comments Trig (test code = Trig) 119 [facility] HospitalQfufmtePCIFRV4875-42-12 18:39:00 Test Item Value Reference Range Interpretation Comments HDL (test code = HDL) 42 [facility] HospitalMwjijapSAGZDA1907-40-74 18:39:00 Test Item Value Reference Range Interpretation Comments Chol (test code = Chol) 134 [facility] AlliancePlhpapiGNDAVVCPVL0896-37-45 14:20:00 Test Item Value Reference Range Interpretation Comments Basophils # (test code 0.1 See_Comment [Aut omated message] The = Basophils #) system which generated this result tra nsmitted reference range : <=0.2. The reference r katie was not used to int erpret this result as normal/abnormal . [facility] AllianceMbziomqOQQMNHHZIQ1637-52-46 14:20:00 Test Item Value Reference Range Interpretation Comments Eosinophils # (test code 0.3 See_Comment [A utomated message] The = Eosinophils #) system whic h generated this result tra nsmitted reference range : <=0.5. The reference r katie was not used to int erpret this result as normal/abnormal . [facility] AllianceNioxpygJDONPNHWLT4404-96-82 14:20:00 Test Item Value Reference Range Interpretation Comments Basophils (test code = 1.0 See_Comment [Aut omated message] The Basophils) system which ge nerated this result tra nsmitted reference range : <=1.0. The reference r katie was not used to int erpret this result as normal/abnormal . [facility] AllianceSxbzfwsLOCAODDGCW5875-10-68 14:20:00 Test Item Value Reference Range Interpretation Comments Basophils # (test code 0.1 See_Comment [Aut omated message] The = Basophils #) system which generated this result tra nsmitted reference range : <=0.2. The reference r katie was not used to int erpret this result as normal/abnormal . [facility] AlliancePcnmktpIUUKYHVPHI0280-03-60 14:20:00 Test Item Value Reference Range Interpretation Comments Eosinophils # (test code 0.3 See_Comment [A utomated message] The = Eosinophils #) system whic h generated this result tra nsmitted reference range : <=0.5. The reference r katie was not used to int erpret this result as normal/abnormal . [facility] AllianceSawbsfjKKUHPQUEJZ3565-02-08 14:20:00 Test Item Value Reference Range Interpretation Comments Basophils (test code = 1.0 See_Comment [Aut omated message] The Basophils) system which ge nerated this result tra nsmitted reference range : <=1.0. The reference r katie was not used to int erpret this result as normal/abnormal . [facility] AllianceYkbqlavHNWIYCCKUN6163-53-89 14:18:00 Test Item Value Reference Range Interpretation Comments POC Hemoglobin (test code = POC 10.2 12.0-16.0 Hemoglobin) [facility] AllianceVueocfoNXFTYSWKEO0848-60-04 14:18:00 Test Item Value Reference Range Interpretation Comments POC AGAP (test code = POC AGAP) 15.0 10.0-20.0 [facility] AllianceIxsngcoIDCGVITIVZ1526-42-64 14:18:00 Test Item Value Reference Range Interpretation Comments POC Creatinine (test code = POC 1.1 0.5-1.4 Creatinine) [facility] AllianceJoqjdowWQBNILYDJX7043-80-31 14:18:00 Test Item Value Reference Range Interpretation Comments POC BUN (test code = POC BUN) 18 7-22 [facility] AllianceKjimblhRLNTEQARWA8362-58-32 14:18:00 Test Item Value Reference Range Interpretation Comments POC Carbon Dioxide (test code = POC 27 24-32 Carbon Dioxide) [facility] AllianceVfziegpMOJYCKMYMC4037-63-44 14:18:00 Test Item Value Reference Range Interpretation Comments POC Glucose (test code = POC Glucose) 101 70-99 [facility] AllianceYqksdopQJWKNHUOEK9419-25-02 14:18:00 Test Item Value Reference Range Interpretation Comments POC Ion Ca (test code = POC Ion Ca) 1.29 1.05-1.25 [facility] AllianceFbbqubcRZZJPDSXCR6275-49-44 14:18:00 Test Item Value Reference Range Interpretation Comments POC Hematocrit (test code = POC 30.0 36.0-48.0 Hematocrit) [facility] AllianceLtnzerxSZBUTHTAXQ0256-45-36 14:18:00 Test Item Value Reference Range Interpretation Comments POC Chloride (test code = POC Chloride) 103 95-109 [facility] AllianceMayugacBZTVWZIKSP7146-96-19 14:18:00 Test Item Value Reference Range Interpretation Comments POC Sodium (test code = POC Sodium) 139 135-145 [facility] AllianceBumklehGIUYTJIOBF8861-85-45 14:18:00 Test Item Value Reference Range Interpretation Comments POC Potassium (test code = POC 4.1 3.5-5.1 Potassium) [facility] AllianceHpmsmclHOKVINBQCL9202-38-59 14:18:00 Test Item Value Reference Range Interpretation Comments POC Hemoglobin (test code = POC 10.2 12.0-16.0 Hemoglobin) [facility] AllianceBsjtbymVEYZDHEOOP0878-04-02 14:18:00 Test Item Value Reference Range Interpretation Comments POC AGAP (test code = POC AGAP) 15.0 10.0-20.0 [facility] AllianceYwegbspXEESSCSXVG1748-70-91 14:18:00 Test Item Value Reference Range Interpretation Comments POC Creatinine (test code = POC 1.1 0.5-1.4 Creatinine) [facility] AllianceHbgaflxQYBQMVAEGQ4300-14-08 14:18:00 Test Item Value Reference Range Interpretation Comments POC BUN (test code = POC BUN) 18 7-22 [facility] AllianceZofbwheMDRELWWLTJ4054-79-93 14:18:00 Test Item Value Reference Range Interpretation Comments POC Carbon Dioxide (test code = POC 27 24-32 Carbon Dioxide) [facility] AllianceHpgtlzkIIMOODIAUV3602-22-41 14:18:00 Test Item Value Reference Range Interpretation Comments POC Glucose (test code = POC Glucose) 101 70-99 [facility] AllianceUfffkxrDTACIROKZE7060-41-13 14:18:00 Test Item Value Reference Range Interpretation Comments POC Ion Ca (test code = POC Ion Ca) 1.29 1.05-1.25 [facility] AllianceMbgmtdwSCNMXFIAER9554-94-96 14:18:00 Test Item Value Reference Range Interpretation Comments POC Hematocrit (test code = POC 30.0 36.0-48.0 Hematocrit) [facility] AllianceHyshkutCYVJWBAQJB4983-57-64 14:18:00 Test Item Value Reference Range Interpretation Comments POC Chloride (test code = POC Chloride) 103 95-109 [facility] AllianceTddgguaJOIGGUOMCL2583-61-26 14:18:00 Test Item Value Reference Range Interpretation Comments POC Sodium (test code = POC Sodium) 139 135-145 [facility]CtbpfebUDUIOCTRGO0006-43-16 14:18:00 Test Item Value Reference Range Interpretation Comments POC Potassium (test code = POC 4.1 3.5-5.1 Potassium) [facility]DcxyftePJTHFCSFYXIE2054-47-80 14:05:00 Test Item Value Reference Range Interpretation Comments POC Sodium (test code = POC Sodium) 138 135-145 [facility] HealthQquwbyjQZUZDHWNEPUM0429-23-77 14:05:00 Test Item Value Reference Range Interpretation Comments POC Hemoglobin (test code = POC 7.8 12.0-16.0 Hemoglobin) [facility] HealthDrbedxnHLEEHTPMMNTX5205-22-21 14:05:00 Test Item Value Reference Range Interpretation Comments POC Glucose (test code = POC Glucose) 101 70-99 [facility] HealthRqwusefRACQCLVYIQAT3330-58-53 14:05:00 Test Item Value Reference Range Interpretation Comments POC Ion Ca (test code = POC Ion Ca) 1.30 1.05-1.25 [facility] HealthNykzmvuSCSWTYCKPTJK2273-83-67 14:05:00 Test Item Value Reference Range Interpretation Comments POC Hematocrit (test code = POC 23.0 36.0-48.0 Hematocrit) [facility] HealthLjitsxdFQENNEBCRINQ3024-71-15 14:05:00 Test Item Value Reference Range Interpretation Comments POC Creatinine (test code = POC 1.0 0.5-1.4 Creatinine) [facility] HealthHetxnqrTRYFIWIFFKAH9787-55-21 14:05:00 Test Item Value Reference Range Interpretation Comments POC BUN (test code = POC BUN) 21 7-22 [facility] HealthAdloynuQDPHXMPLAWJG0107-91-99 14:05:00 Test Item Value Reference Range Interpretation Comments POC Carbon Dioxide (test code = POC 29 24-32 Carbon Dioxide) [facility] HealthCzkwvpkIBOJTSVMWXTN9094-94-03 14:05:00 Test Item Value Reference Range Interpretation Comments POC AGAP (test code = POC AGAP) 11.0 10.0-20.0 [facility] HealthBkxeybxUQVVAJKJBQPS0673-34-49 14:05:00 Test Item Value Reference Range Interpretation Comments POC Chloride (test code = POC Chloride) 104 95-109 [facility] HealthRnkomrcSPYTSWSRBLMD1445-88-17 14:05:00 Test Item Value Reference Range Interpretation Comments POC Potassium (test code = POC 4.6 3.5-5.1 Potassium) [facility] HealthRktzqozZAECKBVBEXTF9023-31-30 14:05:00 Test Item Value Reference Range Interpretation Comments POC Sodium (test code = POC Sodium) 138 135-145 [facility] HealthBstorbeGGIUOJGSOBQS2650-37-98 14:05:00 Test Item Value Reference Range Interpretation Comments POC Hemoglobin (test code = POC 7.8 12.0-16.0 Hemoglobin) [facility] HealthCemkmmdTIUHCGVTGWNX1021-41-39 14:05:00 Test Item Value Reference Range Interpretation Comments POC Glucose (test code = POC Glucose) 101 70-99 [facility] HealthLnovjwaWKVIIIMEVEAX4055-25-19 14:05:00 Test Item Value Reference Range Interpretation Comments POC Ion Ca (test code = POC Ion Ca) 1.30 1.05-1.25 [facility] HealthHkshinfCLMSKWJODSXP0336-68-31 14:05:00 Test Item Value Reference Range Interpretation Comments POC Hematocrit (test code = POC 23.0 36.0-48.0 Hematocrit) [facility] HealthAnuxsfgOZJQJPWHNWBC7185-57-03 14:05:00 Test Item Value Reference Range Interpretation Comments POC Creatinine (test code = POC 1.0 0.5-1.4 Creatinine) [facility] HealthZldnuxtSMWTMEBGDDWE3750-61-92 14:05:00 Test Item Value Reference Range Interpretation Comments POC BUN (test code = POC BUN) 21 7-22 [facility] HealthNyiycszIOQJTGXJWIFV3781-19-08 14:05:00 Test Item Value Reference Range Interpretation Comments POC Carbon Dioxide (test code = POC 29 24-32 Carbon Dioxide) [facility] HealthAmezqqxVOHUYKJJSWBB2683-80-68 14:05:00 Test Item Value Reference Range Interpretation Comments POC AGAP (test code = POC AGAP) 11.0 10.0-20.0 [facility] HealthWzrsxiiDJGMEKBJWLVS8824-90-50 14:05:00 Test Item Value Reference Range Interpretation Comments POC Chloride (test code = POC Chloride) 104 95-109 [facility] HealthJlbkrjqQBDDDAWWCYOL3245-12-21 14:05:00 Test Item Value Reference Range Interpretation Comments POC Potassium (test code = POC 4.6 3.5-5.1 Potassium) [facility] CenterMicrolaunchers OHXHY2102-53-39 17:08:00 Test Item Value Reference Range Interpretation Comments eGFR (test code = eGFR) 59 [facility] ZDVPJ9311-58-35 17:08:00 Test Item Value Reference Range Interpretation Comments POC Creatinine (test code = POC 1.0 0.5-1.4 Creatinine) [facility]2018-05-11 17:08:00 Test Item Value Reference Range Interpretation Comments eGFR (test code = eGFR) 59 [facility]2018-05-11 17:08:00 Test Item Value Reference Range Interpretation Comments POC Creatinine (test code = POC 1.0 0.5-1.4 Creatinine) [facility]2016-06-13 17:32:00 Test Item Value Reference Range Interpretation Comments eGFR (test code = eGFR) 60 [facility]2016-06-13 17:32:00 Test Item Value Reference Range Interpretation Comments POC Creatinine (test code = POC 1.0 0.5-1.4 Creatinine) [facility]2016-06-13 17:32:00 Test Item Value Reference Range Interpretation Comments eGFR (test code = eGFR) 60 [facility]2016-06-13 17:32:00 Test Item Value Reference Range Interpretation Comments POC Creatinine (test code = POC 1.0 0.5-1.4 Creatinine) [facility]2014-08-17 10:00:00 Test Item Value Reference Range Interpretation Comments eGFR (test code = eGFR) 69 [facility]2014-08-17 10:00:00 Test Item Value Reference Range Interpretation Comments Sodium Lvl (test code = Sodium Lvl) 137 135-145 [facility]2014-08-17 10:00:00 Test Item Value Reference Range Interpretation Comments Potassium Lvl (test code = Potassium 4.2 3.5-5.1 Lvl) [facility]2014-08-17 10:00:00 Test Item Value Reference Range Interpretation Comments Chloride Lvl (test code = Chloride Lvl) 105 95-109 [facility]2014-08-17 10:00:00 Test Item Value Reference Range Interpretation Comments BUN (test code = BUN) 9 7-22 [facility]2014-08-17 10:00:00 Test Item Value Reference Range Interpretation Comments Creatinine Lvl (test code = Creatinine 0.9 0.5-1.4 Lvl) [facility]2014-08-17 10:00:00 Test Item Value Reference Range Interpretation Comments Glucose Lvl (test code = Glucose Lvl) 144 70-99 [facility]2014-08-17 10:00:00 Test Item Value Reference Range Interpretation Comments CO2 (test code = CO2) 25 24-32 [facility]2014-08-17 10:00:00 Test Item Value Reference Range Interpretation Comments Calcium Lvl (test code = Calcium Lvl) 8.4 8.5-10.5 [facility]2014-08-17 10:00:00 Test Item Value Reference Range Interpretation Comments AGAP (test code = AGAP) 11.2 10.0-20.0 [facility]2014-08-17 10:00:00 Test Item Value Reference Range Interpretation Comments Magnesium Lvl (test code = Magnesium 1.6 1.8-2.4 Lvl) [facility] AllianceCjudsilKZMUPDTHPA7166-58-34 10:00:00 Test Item Value Reference Range Interpretation Comments INR (test code = INR) 0.99 0.85-1.17 [facility] AllianceLntkpawOMOVEKAAUT4957-83-66 10:00:00 Test Item Value Reference Range Interpretation Comments PT (test code = PT) 13.0 s 12.0-14.7 [facility] AllianceKrwakukUFBIZZIOFB2782-57-01 10:00:00 Test Item Value Reference Range Interpretation Comments PTT (test code = PTT) 32.2 s 22.9-35.8 [facility] AllianceVjmhqizFQKNKEPFWG2775-22-10 10:00:00 Test Item Value Reference Range Interpretation Comments Platelet (test code = Platelet) 156 133-450 [facility] AllianceLzgjxsmGLXEOZXYYH2872-26-88 10:00:00 Test Item Value Reference Range Interpretation Comments RDW (test code = RDW) 18.5 11.5-14.5 [facility] AllianceQzzoktaPBYXAHCXVZ1280-91-55 10:00:00 Test Item Value Reference Range Interpretation Comments MPV (test code = MPV) 7.4 7.4-10.4 [facility] AllianceSbtjteoMGTFYXISWA7987-03-94 10:00:00 Test Item Value Reference Range Interpretation Comments WBC (test code = WBC) 8.5 3.7-10.4 [facility] AllianceOlmceljAGTBZMNFUJ2337-22-07 10:00:00 Test Item Value Reference Range Interpretation Comments RBC (test code = RBC) 3.09 4.20-5.40 [facility] AllianceIsppomwRKKUGMKDDI4902-59-15 10:00:00 Test Item Value Reference Range Interpretation Comments Hct (test code = Hct) 28.3 36.0-48.0 [facility] AllianceKrdpptwWRDEMTZRUT1286-53-17 10:00:00 Test Item Value Reference Range Interpretation Comments MCH (test code = MCH) 31.4 pg 27.0-31.0 [facility] AllianceKzkqgqyMIWYZATNTW1654-37-58 10:00:00 Test Item Value Reference Range Interpretation Comments MCV (test code = MCV) 91.6 81.0-99.0 [facility] AllianceYhosorjMMNWBTFATF5739-30-23 10:00:00 Test Item Value Reference Range Interpretation Comments MCHC (test code = MCHC) 34.3 32.0-36.0 [facility] AllianceRfvansyZZIDMGPGJV7605-24-64 10:00:00 Test Item Value Reference Range Interpretation Comments Hgb (test code = Hgb) 9.7 12.0-16.0 [facility] AllianceGakuhxxMVVJOSWMWM5350-58-71 10:00:00 Test Item Value Reference Range Interpretation Comments Lymphocytes (test code = Lymphocytes) 22.6 20.0-40.0 [facility] AllianceFlprqbaHSGQWMHDEJ5458-52-70 10:00:00 Test Item Value Reference Range Interpretation Comments Segs (test code = Segs) 66.9 45.0-75.0 [facility] AllianceXwfcbemKXTGFLYNIR1240-49-10 10:00:00 Test Item Value Reference Range Interpretation Comments Monocytes (test code = Monocytes) 7.0 2.0-12.0 [facility] AllianceZnuhiblUICIOVLSDW7976-25-01 10:00:00 Test Item Value Reference Range Interpretation Comments Basophils (test code = 0.5 See_Comment [Aut omated message] The Basophils) system which ge nerated this result tra nsmitted reference range : <=1.0. The reference r katie was not used to int erpret this result as normal/abnormal . [facility] AllianceMvnrqnvKFNGMYXVYR5915-33-19 10:00:00 Test Item Value Reference Range Interpretation Comments Eosinophils (test code = 3.0 See_Comment [A utomated message] The Eosinophils) system which ge nerated this result tra nsmitted reference range : <=4.0. The reference r katie was not used to int erpret this result as normal/abnormal . [facility] AlliancePpujxnzUNHVFBFYUE8729-25-21 10:00:00 Test Item Value Reference Range Interpretation Comments Segs-Bands # (test code = Segs-Bands #) 5.7 1.5-8.1 [facility] AllianceAiwwlfwVSFPEMNBWC9326-21-17 10:00:00 Test Item Value Reference Range Interpretation Comments Basophils # (test code 0.0 See_Comment [Aut omated message] The = Basophils #) system which generated this result tra nsmitted reference range : <=0.2. The reference r katie was not used to int erpret this result as normal/abnormal . [facility] AllianceMzdderyQSVGUGTBGT6091-85-94 10:00:00 Test Item Value Reference Range Interpretation Comments Eosinophils # (test code 0.3 See_Comment [A utomated message] The = Eosinophils #) system whic h generated this result tra nsmitted reference range : <=0.5. The reference r katie was not used to int erpret this result as normal/abnormal . [facility] AllianceNtcdbuaYURJVTHYLW9374-60-55 10:00:00 Test Item Value Reference Range Interpretation Comments Lymphocytes # (test code = Lymphocytes 1.9 1.0-5.5 #) [facility] AllianceUqqostePOAZAOOUPG5953-14-38 10:00:00 Test Item Value Reference Range Interpretation Comments Monocytes # (test code 0.6 See_Comment [Aut omated message] The = Monocytes #) system which generated this result tra nsmitted reference range : <=0.8. The reference r katie was not used to int erpret this result as normal/abnormal . [facility]2014-08-17 10:00:00 Test Item Value Reference Range Interpretation Comments eGFR (test code = eGFR) 69 [facility]2014-08-17 10:00:00 Test Item Value Reference Range Interpretation Comments Sodium Lvl (test code = Sodium Lvl) 137 135-145 [facility]2014-08-17 10:00:00 Test Item Value Reference Range Interpretation Comments Potassium Lvl (test code = Potassium 4.2 3.5-5.1 Lvl) [facility]2014-08-17 10:00:00 Test Item Value Reference Range Interpretation Comments Chloride Lvl (test code = Chloride Lvl) 105 95-109 [facility]2014-08-17 10:00:00 Test Item Value Reference Range Interpretation Comments BUN (test code = BUN) 9 7-22 [place] 532624-08-17 10:00:00 Test Item Value Reference Range Interpretation Comments Creatinine Lvl (test code = Creatinine 0.9 0.5-1.4 Lvl) [facility]2014-08-17 10:00:00 Test Item Value Reference Range Interpretation Comments Glucose Lvl (test code = Glucose Lvl) 144 70-99 [facility]2014-08-17 10:00:00 Test Item Value Reference Range Interpretation Comments CO2 (test code = CO2) 25 24-32 [facility]2014-08-17 10:00:00 Test Item Value Reference Range Interpretation Comments Calcium Lvl (test code = Calcium Lvl) 8.4 8.5-10.5 [facility]2014-08-17 10:00:00 Test Item Value Reference Range Interpretation Comments AGAP (test code = AGAP) 11.2 10.0-20.0 [facility]2014-08-17 10:00:00 Test Item Value Reference Range Interpretation Comments Magnesium Lvl (test code = Magnesium 1.6 1.8-2.4 Lvl) [facility] AllianceUeypohiDDJEIKJIRZ7125-95-89 10:00:00 Test Item Value Reference Range Interpretation Comments INR (test code = INR) 0.99 0.85-1.17 [facility] AllianceZiwtwcnWXIAROJECG4312-89-27 10:00:00 Test Item Value Reference Range Interpretation Comments PT (test code = PT) 13.0 s 12.0-14.7 [facility] AllianceCpgoaroFLJBKMQTMV5108-22-08 10:00:00 Test Item Value Reference Range Interpretation Comments PTT (test code = PTT) 32.2 s 22.9-35.8 [facility] AllianceJsidabnGYXQBSSSXS8279-44-07 10:00:00 Test Item Value Reference Range Interpretation Comments Platelet (test code = Platelet) 156 133-450 [facility] AllianceTzciwgkGCEHZCXZHM5043-78-23 10:00:00 Test Item Value Reference Range Interpretation Comments RDW (test code = RDW) 18.5 11.5-14.5 [facility] AllianceEhbwhocHPOZBWTGRU8804-02-43 10:00:00 Test Item Value Reference Range Interpretation Comments MPV (test code = MPV) 7.4 7.4-10.4 [facility] AllianceTacssmqKBDIOPHADS3376-13-65 10:00:00 Test Item Value Reference Range Interpretation Comments WBC (test code = WBC) 8.5 3.7-10.4 [facility] AllianceCvhgkpbVYXAGHJVHT8429-13-06 10:00:00 Test Item Value Reference Range Interpretation Comments RBC (test code = RBC) 3.09 4.20-5.40 [facility] AllianceQxltooxOQQQYHPIDV4792-91-59 10:00:00 Test Item Value Reference Range Interpretation Comments Hct (test code = Hct) 28.3 36.0-48.0 [facility] AllianceMqzlwidDYHOHMYFKX1849-28-45 10:00:00 Test Item Value Reference Range Interpretation Comments MCH (test code = MCH) 31.4 pg 27.0-31.0 [facility] AllianceTdrrerePRBTTHOVYR3655-84-77 10:00:00 Test Item Value Reference Range Interpretation Comments MCV (test code = MCV) 91.6 81.0-99.0 [facility] AllianceUeeiwojFGSBCHHQBV4735-94-99 10:00:00 Test Item Value Reference Range Interpretation Comments MCHC (test code = MCHC) 34.3 32.0-36.0 [facility] AllianceJqdumucCYAKECAZUA4879-17-05 10:00:00 Test Item Value Reference Range Interpretation Comments Hgb (test code = Hgb) 9.7 12.0-16.0 [facility] AllianceAfydopqGZGJIDXRWZ8322-65-59 10:00:00 Test Item Value Reference Range Interpretation Comments Lymphocytes (test code = Lymphocytes) 22.6 20.0-40.0 [facility] AllianceSioychuIYHSRERYXD7659-74-49 10:00:00 Test Item Value Reference Range Interpretation Comments Segs (test code = Segs) 66.9 45.0-75.0 [facility] AllianceEuacnbvBPWZJXOABC0264-53-15 10:00:00 Test Item Value Reference Range Interpretation Comments Monocytes (test code = Monocytes) 7.0 2.0-12.0 [facility] AllianceDsmuqopSCIQHHUETZ9307-24-68 10:00:00 Test Item Value Reference Range Interpretation Comments Basophils (test code = 0.5 See_Comment [Aut omated message] The Basophils) system which ge nerated this result tra nsmitted reference range : <=1.0. The reference r katie was not used to int erpret this result as normal/abnormal . [facility] AllianceTmnymftYJMHCJTXRH8016-33-41 10:00:00 Test Item Value Reference Range Interpretation Comments Eosinophils (test code = 3.0 See_Comment [A utomated message] The Eosinophils) system which ge nerated this result tra nsmitted reference range : <=4.0. The reference r katie was not used to int erpret this result as normal/abnormal . [facility] AllianceCgnsxteHSTMLWQZRR7500-62-91 10:00:00 Test Item Value Reference Range Interpretation Comments Segs-Bands # (test code = Segs-Bands #) 5.7 1.5-8.1 [facility] AllianceWvtauxjURLBGLXQPA3742-99-82 10:00:00 Test Item Value Reference Range Interpretation Comments Basophils # (test code 0.0 See_Comment [Aut omated message] The = Basophils #) system which generated this result tra nsmitted reference range : <=0.2. The reference r katie was not used to int erpret this result as normal/abnormal . [facility] AllianceQnfzksiMEZKZPCKWK3251-51-72 10:00:00 Test Item Value Reference Range Interpretation Comments Eosinophils # (test code 0.3 See_Comment [A utomated message] The = Eosinophils #) system whic h generated this result tra nsmitted reference range : <=0.5. The reference r katie was not used to int erpret this result as normal/abnormal . [facility] AllianceOyijqmwQLWJTWEXSE6976-25-41 10:00:00 Test Item Value Reference Range Interpretation Comments Lymphocytes # (test code = Lymphocytes 1.9 1.0-5.5 #) [facility] AllianceVrrplouUXBWREAGDZ0090-89-61 10:00:00 Test Item Value Reference Range Interpretation Comments Monocytes # (test code 0.6 See_Comment [Aut omated message] The = Monocytes #) system which generated this result tra nsmitted reference range : <=0.8. The reference r katie was not used to int erpret this result as normal/abnormal . [facility] AllianceMjixvbuVFQZPYHRWJ9200-63-86 15:10:33 Test Item Value Reference Range Interpretation Comments Pos CO Value (test code = Pos CO 0.443 1 Value) [facility] AllianceNeqafqbTARMZDKDAT1256-41-96 15:10:33 Test Item Value Reference Range Interpretation Comments Pat Od Value (test code = Pat Od 0.221 1 Value) [facility] AllianceXqmdoguCKZIXXZXKG8504-64-56 15:10:33 Test Item Value Reference Range Interpretation Comments Heparin Ab(NERI) Negative (02/09/14 10:10 (test code = Heparin AM) Ab(NERI)) [facility] AllianceFgoqirsKQYHIANBVK8278-73-86 15:10:33 Test Item Value Reference Range Interpretation Comments Pos CO Value (test code = Pos CO 0.443 1 Value) [facility] AlliancePjvqkoiGBSGKOVXEF7709-41-74 15:10:33 Test Item Value Reference Range Interpretation Comments Pat Od Value (test code = Pat Od 0.221 1 Value) [facility] AlliancePnxwfcmUGTSQQFPJW8184-16-67 15:10:33 Test Item Value Reference Range Interpretation Comments Heparin Ab(NERI) Negative (02/09/14 10:10 (test code = Heparin AM) Ab(NERI)) [facility]2014-08-15 23:40:50 Test Item Value Reference Range Interpretation Comments % Satur Fe (test code = % Satur Fe) [facility]2014-08-15 23:40:50 Test Item Value Reference Range Interpretation Comments UIBC (test code = UIBC) 140 110-370 [facility]2014-08-15 23:40:50 Test Item Value Reference Range Interpretation Comments TIBC (test code = TIBC) 188 228-428 [facility]2014-08-15 23:40:50 Test Item Value Reference Range Interpretation Comments Iron (test code = Iron) 48 30-160 [facility]2014-08-15 23:40:50 Test Item Value Reference Range Interpretation Comments % Satur Fe (test code = % Satur Fe) [facility]2014-08-15 23:40:50 Test Item Value Reference Range Interpretation Comments UIBC (test code = UIBC) 140 110-370 [facility]2014-08-15 23:40:50 Test Item Value Reference Range Interpretation Comments TIBC (test code = TIBC) 188 228-428 [facility]2014-08-15 23:40:50 Test Item Value Reference Range Interpretation Comments Iron (test code = Iron) 48 30-160 [facility] AllianceBysniooXTILODDOWE3117-06-47 10:00:00 Test Item Value Reference Range Interpretation Comments Monocytes # (test code 0.7 See_Comment [Aut omated message] The = Monocytes #) system which generated this result tra nsmitted reference range : <=0.8. The reference r katie was not used to int erpret this result as normal/abnormal . [facility] AllianceSksdthgCXGBJPRMPX7624-47-79 10:00:00 Test Item Value Reference Range Interpretation Comments Lymphocytes # (test code = Lymphocytes 2.2 1.0-5.5 #) [facility] AllianceEkgsvziBRUKSXZJSO5859-28-79 10:00:00 Test Item Value Reference Range Interpretation Comments Eosinophils # (test code 0.1 See_Comment [A utomated message] The = Eosinophils #) system whic h generated this result tra nsmitted reference range : <=0.5. The reference r katie was not used to int erpret this result as normal/abnormal . [facility] AllianceLdrqulwVZQSNMXKSV0812-01-52 10:00:00 Test Item Value Reference Range Interpretation Comments Basophils # (test code 0.0 See_Comment [Aut omated message] The = Basophils #) system which generated this result tra nsmitted reference range : <=0.2. The reference r katie was not used to int erpret this result as normal/abnormal . [facility] AllianceXblaeybPVMULQTKPL0503-57-67 10:00:00 Test Item Value Reference Range Interpretation Comments Segs (test code = Segs) 63.5 45.0-75.0 [facility] AllianceRjavmtnCAOARPRMGZ4571-61-40 10:00:00 Test Item Value Reference Range Interpretation Comments Monocytes (test code = Monocytes) 8.5 2.0-12.0 [facility] AllianceUaxdfphBQSLLNJMFR9212-64-89 10:00:00 Test Item Value Reference Range Interpretation Comments Lymphocytes (test code = Lymphocytes) 25.9 20.0-40.0 [facility] AllianceKzkqcoiAFMWEUHZES6303-88-22 10:00:00 Test Item Value Reference Range Interpretation Comments Segs-Bands # (test code = Segs-Bands #) 5.3 1.5-8.1 [facility] AllianceHdensebILUOCMJOZP8365-87-58 10:00:00 Test Item Value Reference Range Interpretation Comments Basophils (test code = 0.3 See_Comment [Aut omated message] The Basophils) system which ge nerated this result tra nsmitted reference range : <=1.0. The reference r katie was not used to int erpret this result as normal/abnormal . [facility] AllianceXcjwgxxHIZCDWIUNK1956-87-07 10:00:00 Test Item Value Reference Range Interpretation Comments Eosinophils (test code = 1.8 See_Comment [A utomated message] The Eosinophils) system which ge nerated this result tra nsmitted reference range : <=4.0. The reference r katie was not used to int erpret this result as normal/abnormal . [facility] HospitalGnmiupfXVIGET4870-14-90 10:00:00 Test Item Value Reference Range Interpretation Comments CHD Risk (test code = CHD Risk) 3.00 3.90-5.80 [facility]YevnzroOVAAIQ3981-89-09 10:00:00 Test Item Value Reference Range Interpretation Comments VLDL (test code = VLDL) 24 [facility] HospitalJpgnrjdJTEKDH5118-82-76 10:00:00 Test Item Value Reference Range Interpretation Comments LDL (Calculated) (test code = LDL 28 (Calculated)) [facility] HospitalImqmexjZJPGJW4950-76-05 10:00:00 Test Item Value Reference Range Interpretation Comments HDL (test code = HDL) 26 [facility] HospitalFwsddigRCFATW8727-98-10 10:00:00 Test Item Value Reference Range Interpretation Comments Trig (test code = Trig) 122 [facility] CenterAgybrhnGCCEAM9037-05-10 10:00:00 Test Item Value Reference Range Interpretation Comments Chol (test code = Chol) 78 [facility] CenterannTHYROID GREBC7366-61-56 10:00:00 Test Item Value Reference Range Interpretation Comments T4 (test code = T4) 7.9 4.7-13.3 [facility] CenterannTHYROID KNNGD4252-13-27 10:00:00 Test Item Value Reference Range Interpretation Comments T3 Uptake (test code = T3 Uptake) 40 31-39 [facility] CenterannTHYROID XNFKV2514-30-49 10:00:00 Test Item Value Reference Range Interpretation Comments TSH (test code = TSH) 3.360 0.360-3.740 [facility] CenterannTHYROID JLACC4056-30-72 10:00:00 Test Item Value Reference Range Interpretation Comments FTI (test code = FTI) 3.2 [facility] CenterannCHEM ZBUUC6205-42-35 10:00:00 Test Item Value Reference Range Interpretation Comments Phosphorus (test code = Phosphorus) 2.5 2.5-4.5 [facility] CenterannCHEM LGWAY3589-02-57 10:00:00 Test Item Value Reference Range Interpretation Comments Magnesium Lvl (test code = Magnesium 1.9 1.8-2.4 Lvl) [facility] HealthWdyxxtoATLFTQTBRDEG1321-29-48 10:00:00 Test Item Value Reference Range Interpretation Comments AGAP (test code = AGAP) 9.9 10.0-20.0 [facility] HealthVzcysjpLIXWRBYGMAXC1429-48-21 10:00:00 Test Item Value Reference Range Interpretation Comments eGFR (test code = eGFR) 61 [facility] HealthTvxebigAOGWYJGXAMDI2256-33-15 10:00:00 Test Item Value Reference Range Interpretation Comments BUN (test code = BUN) 9 7-22 [facility] HealthRakmochSGKUTDFXGOSL5330-10-08 10:00:00 Test Item Value Reference Range Interpretation Comments Glucose Lvl (test code = Glucose Lvl) 102 70-99 [facility] HealthGhbnuqyAJRLBGJYPYJD7477-13-00 10:00:00 Test Item Value Reference Range Interpretation Comments Potassium Lvl (test code = Potassium 3.9 3.5-5.1 Lvl) [facility] HealthVjaossnQCXXFNTFBANU0636-66-22 10:00:00 Test Item Value Reference Range Interpretation Comments Creatinine Lvl (test code = Creatinine 1.0 0.5-1.4 Lvl) [facility] HealthVmgcrsuYROZOHLLFJTO3831-41-72 10:00:00 Test Item Value Reference Range Interpretation Comments Sodium Lvl (test code = Sodium Lvl) 141 135-145 [facility] HealthWutqqnjJIWYKJYARQTU1554-36-91 10:00:00 Test Item Value Reference Range Interpretation Comments Calcium Lvl (test code = Calcium Lvl) 8.1 8.5-10.5 [facility] HealthGjtzyuiESZTIJLYYYJA9820-98-98 10:00:00 Test Item Value Reference Range Interpretation Comments CO2 (test code = CO2) 26 24-32 [facility] HealthMmyfkprYKPYSMFTDTOV3058-30-09 10:00:00 Test Item Value Reference Range Interpretation Comments Chloride Lvl (test code = Chloride Lvl) 109 95-109 [facility] CenterLmksisnQASETJQUGWSPC9235-15-25 10:00:00 Test Item Value Reference Range Interpretation Comments FSH (test code = FSH) 33.9 [facility] AllianceRipdlfrHHCDWRXQBM2129-14-25 10:00:00 Test Item Value Reference Range Interpretation Comments MPV (test code = MPV) 6.9 7.4-10.4 [facility] AllianceJqbdjhkOGUDJTNSRF5353-35-04 10:00:00 Test Item Value Reference Range Interpretation Comments Hct (test code = Hct) 28.4 36.0-48.0 [facility] AllianceUixaswoHLLMLXGQQA6898-52-24 10:00:00 Test Item Value Reference Range Interpretation Comments Hgb (test code = Hgb) 9.8 12.0-16.0 [facility] AllianceJkqslyfKHWTNLTWZO2715-10-02 10:00:00 Test Item Value Reference Range Interpretation Comments RBC (test code = RBC) 3.15 4.20-5.40 [facility] AllianceBtwhnteDAQQOKMSTJ3075-47-50 10:00:00 Test Item Value Reference Range Interpretation Comments WBC (test code = WBC) 8.4 3.7-10.4 [facility] AllianceCbezrquCOKXCBFYCK6566-97-16 10:00:00 Test Item Value Reference Range Interpretation Comments Platelet (test code = Platelet) 118 133-450 [facility] AllianceNdjdbnmSGQGQVRERB2261-87-35 10:00:00 Test Item Value Reference Range Interpretation Comments RDW (test code = RDW) 19.9 11.5-14.5 [facility] AllianceZzecjjxFZDJFEQHBH9746-53-90 10:00:00 Test Item Value Reference Range Interpretation Comments MCHC (test code = MCHC) 34.6 32.0-36.0 [facility] AlliancePyuzwyoSWEDNAHIIE3105-09-03 10:00:00 Test Item Value Reference Range Interpretation Comments MCH (test code = MCH) 31.2 pg 27.0-31.0 [facility] AllianceHnjknxeROPVCADOXC9676-63-61 10:00:00 Test Item Value Reference Range Interpretation Comments MCV (test code = MCV) 90.2 81.0-99.0 [facility] AllianceVghvmtjQOOJKZUPLN8589-93-12 10:00:00 Test Item Value Reference Range Interpretation Comments Basophils # (test code 0.0 See_Comment [Aut omated message] The = Basophils #) system which generated this result tra nsmitted reference range : <=0.2. The reference r katie was not used to int erpret this result as normal/abnormal . [facility] AllianceDjiixruGQWRMDECXF8240-48-37 10:00:00 Test Item Value Reference Range Interpretation Comments Segs (test code = Segs) 63.5 45.0-75.0 [facility] AllianceKemuiscIHIPMBRNVU2156-71-78 10:00:00 Test Item Value Reference Range Interpretation Comments Monocytes (test code = Monocytes) 8.5 2.0-12.0 [facility] AllianceKqlvovsMGIKWVQFPI6778-68-51 10:00:00 Test Item Value Reference Range Interpretation Comments Lymphocytes (test code = Lymphocytes) 25.9 20.0-40.0 [facility] AllianceYluvmkiHLUMSIDBIM9648-72-97 10:00:00 Test Item Value Reference Range Interpretation Comments Segs-Bands # (test code = Segs-Bands #) 5.3 1.5-8.1 [facility] AllianceVvcfhjgZUOZSCBVYU9563-32-34 10:00:00 Test Item Value Reference Range Interpretation Comments Basophils (test code = 0.3 See_Comment [Aut omated message] The Basophils) system which ge nerated this result tra nsmitted reference range : <=1.0. The reference r katie was not used to int erpret this result as normal/abnormal . [facility] AllianceOzgbniaVBZDXZJLCN7654-86-25 10:00:00 Test Item Value Reference Range Interpretation Comments Eosinophils (test code = 1.8 See_Comment [A utomated message] The Eosinophils) system which ge nerated this result tra nsmitted reference range : <=4.0. The reference r katie was not used to int erpret this result as normal/abnormal . [facility]CxaburdDFACRR6505-21-54 10:00:00 Test Item Value Reference Range Interpretation Comments CHD Risk (test code = CHD Risk) 3.00 3.90-5.80 [facility] CenterYvtlzhyHCKSDI0563-29-09 10:00:00 Test Item Value Reference Range Interpretation Comments VLDL (test code = VLDL) 24 [facility] HospitalOdqilxuYQBQEG6325-90-49 10:00:00 Test Item Value Reference Range Interpretation Comments LDL (Calculated) (test code = LDL 28 (Calculated)) [facility] CenterJqxgxymMVCWDW0976-50-26 10:00:00 Test Item Value Reference Range Interpretation Comments HDL (test code = HDL) 26 [facility] CenterHlqtvofHLDLDS7346-45-22 10:00:00 Test Item Value Reference Range Interpretation Comments Trig (test code = Trig) 122 [facility] CenterRryvsmtSUGHNP4912-35-71 10:00:00 Test Item Value Reference Range Interpretation Comments Chol (test code = Chol) 78 [facility] CenterTHYROID ZLAWT3655-59-53 10:00:00 Test Item Value Reference Range Interpretation Comments T4 (test code = T4) 7.9 4.7-13.3 [facility] CenterannTHYROID FMBIG3584-69-23 10:00:00 Test Item Value Reference Range Interpretation Comments T3 Uptake (test code = T3 Uptake) 40 31-39 [facility] CenterannTHYROID SAIRN1851-25-73 10:00:00 Test Item Value Reference Range Interpretation Comments TSH (test code = TSH) 3.360 0.360-3.740 [facility] CenterannTHYROID TVYBM6198-64-32 10:00:00 Test Item Value Reference Range Interpretation Comments FTI (test code = FTI) 3.2 [facility] CenterCHE[facility] HHVES1393-41-27 10:00:00 Test Item Value Reference Range Interpretation Comments Phosphorus (test code = Phosphorus) 2.5 2.5-4.5 [facility] CenterannCHEM ZEAQB4263-90-70 10:00:00 Test Item Value Reference Range Interpretation Comments Magnesium Lvl (test code = Magnesium 1.9 1.8-2.4 Lvl) [facility] HealthAhevypuPOYTRDWDYTMF1638-29-95 10:00:00 Test Item Value Reference Range Interpretation Comments AGAP (test code = AGAP) 9.9 10.0-20.0 [facility] HealthGwafvdtKGPVFWWOVMKR6435-83-60 10:00:00 Test Item Value Reference Range Interpretation Comments eGFR (test code = eGFR) 61 [facility] HealthBbhskdnTMAUCLXQJJUO4763-06-22 10:00:00 Test Item Value Reference Range Interpretation Comments BUN (test code = BUN) 9 7-22 [facility] HealthFxmldhkBOWJMRFRUUAQ8059-71-77 10:00:00 Test Item Value Reference Range Interpretation Comments Glucose Lvl (test code = Glucose Lvl) 102 70-99 [facility] HealthJwotqzvEQMJZKSWJDSE0026-54-87 10:00:00 Test Item Value Reference Range Interpretation Comments Potassium Lvl (test code = Potassium 3.9 3.5-5.1 Lvl) [facility] HealthIxgvcifXMRYSRXMCTCC9247-11-98 10:00:00 Test Item Value Reference Range Interpretation Comments Creatinine Lvl (test code = Creatinine 1.0 0.5-1.4 Lvl) [facility] HealthKnzlqryBXAMUDPWONTJ6673-78-06 10:00:00 Test Item Value Reference Range Interpretation Comments Sodium Lvl (test code = Sodium Lvl) 141 135-145 [facility] HealthRhnuddjWQIRTDBMCACX8422-70-85 10:00:00 Test Item Value Reference Range Interpretation Comments Calcium Lvl (test code = Calcium Lvl) 8.1 8.5-10.5 [facility]xapqnrIGWUFFFKKLYQ0194-29-44 10:00:00 Test Item Value Reference Range Interpretation Comments CO2 (test code = CO2) 26 24-32 [facility]AzuroimZZPJHYYNEHHU7918-72-52 10:00:00 Test Item Value Reference Range Interpretation Comments Chloride Lvl (test code = Chloride Lvl) 109 95-109 [facility] CenterVecmmbqKUNXBWWRSKJLO8908-35-07 10:00:00 Test Item Value Reference Range Interpretation Comments FSH (test code = FSH) 33.9 [facility]AkyxlfgRLIWGGFYES4635-35-56 10:00:00 Test Item Value Reference Range Interpretation Comments MPV (test code = MPV) 6.9 7.4-10.4 [facility] AllianceMxtsunuECGCNATBPJ9318-16-49 10:00:00 Test Item Value Reference Range Interpretation Comments Hct (test code = Hct) 28.4 36.0-48.0 [facility] AllianceRkpjcajYNJQCUYWLI3538-45-78 10:00:00 Test Item Value Reference Range Interpretation Comments Hgb (test code = Hgb) 9.8 12.0-16.0 [facility] HospitalMaxajtgTNSRPKXGUD8440-30-15 10:00:00 Test Item Value Reference Range Interpretation Comments RBC (test code = RBC) 3.15 4.20-5.40 [facility] AllianceQfzfqdrKPVVRMIXKS5947-29-24 10:00:00 Test Item Value Reference Range Interpretation Comments WBC (test code = WBC) 8.4 3.7-10.4 [facility] AllianceQscttamEHYFMEJYRG3870-48-06 10:00:00 Test Item Value Reference Range Interpretation Comments Platelet (test code = Platelet) 118 133-450 [facility] HospitalWdltewsSGWQBEGZUS0472-86-25 10:00:00 Test Item Value Reference Range Interpretation Comments RDW (test code = RDW) 19.9 11.5-14.5 [facility] HospitalLuywipzDWTBQFYEOR0536-52-43 10:00:00 Test Item Value Reference Range Interpretation Comments MCHC (test code = MCHC) 34.6 32.0-36.0 [facility] AllianceBaznrqeCVQMYBSZSI7350-15-96 10:00:00 Test Item Value Reference Range Interpretation Comments MCH (test code = MCH) 31.2 pg 27.0-31.0 [facility] AllianceIgkouyxJGAVHRMPXP3185-55-01 10:00:00 Test Item Value Reference Range Interpretation Comments MCV (test code = MCV) 90.2 81.0-99.0 [facility] AllianceQzsbyzbZRTRBXVQCP0528-25-54 10:00:00 Test Item Value Reference Range Interpretation Comments Monocytes # (test code 0.7 See_Comment [Aut omated message] The = Monocytes #) system which generated this result tra nsmitted reference range : <=0.8. The reference r katie was not used to int erpret this result as normal/abnormal . [facility] AllianceZdrjjksOFMXMZKHQL7941-20-97 10:00:00 Test Item Value Reference Range Interpretation Comments Lymphocytes # (test code = Lymphocytes 2.2 1.0-5.5 #) [facility] AllianceNnlrrqbLMVZRDFCJA9544-89-86 10:00:00 Test Item Value Reference Range Interpretation Comments Eosinophils # (test code 0.1 See_Comment [A utomated message] The = Eosinophils #) system whic h generated this result tra nsmitted reference range : <=0.5. The reference r katie was not used to int erpret this result as normal/abnormal . [facility]2014-08-14 09:24:00 Test Item Value Reference Range Interpretation Comments Phosphorus (test code = Phosphorus) 2.5 2.5-4.5 [facility]2014-08-14 09:24:00 Test Item Value Reference Range Interpretation Comments Magnesium Lvl (test code = Magnesium 1.4 1.8-2.4 Lvl) [facility] HealthRbqndaeABDQEUEGSRIP0340-91-49 09:24:00 Test Item Value Reference Range Interpretation Comments AGAP (test code = AGAP) 10.1 10.0-20.0 [facility] HealthWenkfdjNQBWCEMMKDFG7932-39-79 09:24:00 Test Item Value Reference Range Interpretation Comments BUN (test code = BUN) 12 7-22 [facility] HealthGhmmijbWYIYVPMVYNGZ6538-88-52 09:24:00 Test Item Value Reference Range Interpretation Comments Glucose Lvl (test code = Glucose Lvl) 103 70-99 [facility] HealthBllwdejPZXOZLPSXVRU0139-23-90 09:24:00 Test Item Value Reference Range Interpretation Comments Sodium Lvl (test code = Sodium Lvl) 138 135-145 [facility] HealthCmsytkjTVDKVPHPHLNI2059-64-82 09:24:00 Test Item Value Reference Range Interpretation Comments Creatinine Lvl (test code = Creatinine 1.1 0.5-1.4 Lvl) [facility] HealthJfhwhhyXIZQGZTGJTEF5108-01-32 09:24:00 Test Item Value Reference Range Interpretation Comments Chloride Lvl (test code = Chloride Lvl) 107 95-109 [facility] HealthQwjzmrcYETVXNKXHUDL7242-56-39 09:24:00 Test Item Value Reference Range Interpretation Comments Potassium Lvl (test code = Potassium 4.1 3.5-5.1 Lvl) [facility] HealthQcopdnvHJZORCDFXOCW0044-91-39 09:24:00 Test Item Value Reference Range Interpretation Comments CO2 (test code = CO2) 25 24-32 [facility] HealthXpajwlaBRTUOQGATUOQ1050-93-99 09:24:00 Test Item Value Reference Range Interpretation Comments Calcium Lvl (test code = Calcium Lvl) 8.3 8.5-10.5 [facility] HealthBjynmdgSLGDXBSOMCEY7836-48-43 09:24:00 Test Item Value Reference Range Interpretation Comments eGFR (test code = eGFR) 54 [facility] AlliancePgffchuFHLZLMUILZ7912-75-24 09:24:00 Test Item Value Reference Range Interpretation Comments INR (test code = INR) 1.24 0.85-1.17 [facility] AlliancePkjhzjtJWTINPELYH9908-18-36 09:24:00 Test Item Value Reference Range Interpretation Comments PT (test code = PT) 15.5 s 12.0-14.7 [facility] AllianceBbnetelUGCHVRLUOQ6173-05-08 09:24:00 Test Item Value Reference Range Interpretation Comments PTT (test code = PTT) 31.2 s 22.9-35.8 [facility] AllianceMyxqelbEOCWPCDIRT5562-61-00 09:24:00 Test Item Value Reference Range Interpretation Comments MPV (test code = MPV) 7.0 7.4-10.4 [facility] AllianceSjffmnbLFFZXETMHR1804-95-98 09:24:00 Test Item Value Reference Range Interpretation Comments RDW (test code = RDW) 19.0 11.5-14.5 [facility] AllianceZtsxunvLBKCBSKXUX4379-35-00 09:24:00 Test Item Value Reference Range Interpretation Comments MCH (test code = MCH) 31.0 pg 27.0-31.0 [facility] AllianceNjeethaPMRJOYGVWN9728-66-45 09:24:00 Test Item Value Reference Range Interpretation Comments MCHC (test code = MCHC) 34.2 32.0-36.0 [facility] AllianceHditeikAJRRQGZYZF7149-91-95 09:24:00 Test Item Value Reference Range Interpretation Comments WBC (test code = WBC) 8.6 3.7-10.4 [facility] AlliancePukubuqXRUOINMWBP7382-90-49 09:24:00 Test Item Value Reference Range Interpretation Comments Platelet (test code = Platelet) 116 133-450 [facility] AllianceOjcqetpUHVIDLPWSB3959-94-72 09:24:00 Test Item Value Reference Range Interpretation Comments Hgb (test code = Hgb) 10.3 12.0-16.0 [facility] AllianceAbplbbcJRZFYOSGLQ7686-36-92 09:24:00 Test Item Value Reference Range Interpretation Comments RBC (test code = RBC) 3.34 4.20-5.40 [facility] AllianceWquuwhjOOLWJLVYPU1070-38-20 09:24:00 Test Item Value Reference Range Interpretation Comments Hct (test code = Hct) 30.2 36.0-48.0 [facility] AllianceOqifpzlJYPWUOZLXT5370-73-16 09:24:00 Test Item Value Reference Range Interpretation Comments MCV (test code = MCV) 90.6 81.0-99.0 [facility] AllianceHtefasuRZSJBBMOGQ7290-65-66 09:24:00 Test Item Value Reference Range Interpretation Comments Basophils # (test code 0.0 See_Comment [Aut omated message] The = Basophils #) system which generated this result tra nsmitted reference range : <=0.2. The reference r katie was not used to int erpret this result as normal/abnormal . [facility] AllianceZfkgwmdVAGEKKMJBD9657-27-76 09:24:00 Test Item Value Reference Range Interpretation Comments Eosinophils # (test code 0.0 See_Comment [A utomated message] The = Eosinophils #) system whic h generated this result tra nsmitted reference range : <=0.5. The reference r katie was not used to int erpret this result as normal/abnormal . [facility] AllianceDzjihmdTAFGETLQGJ5961-97-36 09:24:00 Test Item Value Reference Range Interpretation Comments Lymphocytes # (test code = Lymphocytes 1.3 1.0-5.5 #) [facility] AllianceCtyeyflJDDRPMKXWU8510-71-13 09:24:00 Test Item Value Reference Range Interpretation Comments Segs-Bands # (test code = Segs-Bands #) 6.7 1.5-8.1 [facility] AllianceNgngobfOFMVFNSNVO9036-16-39 09:24:00 Test Item Value Reference Range Interpretation Comments Monocytes # (test code 0.5 See_Comment [Aut omated message] The = Monocytes #) system which generated this result tra nsmitted reference range : <=0.8. The reference r katie was not used to int erpret this result as normal/abnormal . [facility] AllianceWhpopgbIWVDLBSURE3598-33-51 09:24:00 Test Item Value Reference Range Interpretation Comments Eosinophils (test code = 0.2 See_Comment [A utomated message] The Eosinophils) system which ge nerated this result tra nsmitted reference range : <=4.0. The reference r katie was not used to int erpret this result as normal/abnormal . [facility] AllianceCywsvqdHOGHWAHLKH7749-63-01 09:24:00 Test Item Value Reference Range Interpretation Comments Monocytes (test code = Monocytes) 6.4 2.0-12.0 [facility] AllianceYabfhuuDRYTRKALUO7318-49-17 09:24:00 Test Item Value Reference Range Interpretation Comments Basophils (test code = 0.2 See_Comment [Aut omated message] The Basophils) system which ge nerated this result tra nsmitted reference range : <=1.0. The reference r katie was not used to int erpret this result as normal/abnormal . [facility] AllianceNnuziygMCGDCFYYTI8855-70-47 09:24:00 Test Item Value Reference Range Interpretation Comments Segs (test code = Segs) 77.6 45.0-75.0 [facility] AlliancePgbojvpXHBUYOADRR5092-26-34 09:24:00 Test Item Value Reference Range Interpretation Comments Lymphocytes (test code = Lymphocytes) 15.6 20.0-40.0 [facility] HNTUH0763-58-11 09:24:00 Test Item Value Reference Range Interpretation Comments Phosphorus (test code = Phosphorus) 2.5 2.5-4.5 [facility]2014-08-14 09:24:00 Test Item Value Reference Range Interpretation Comments Magnesium Lvl (test code = Magnesium 1.4 1.8-2.4 Lvl) [facility]bzz[facility]ulZHJPBVZNORNW4607-18-76 09:24:00 Test Item Value Reference Range Interpretation Comments AGAP (test code = AGAP) 10.1 10.0-20.0 [facility] HealthCyhabhdBXTROADWCMDD7358-56-12 09:24:00 Test Item Value Reference Range Interpretation Comments BUN (test code = BUN) 12 7-22 [facility] HealthBdjnztqOTXPGBLNKZQA2688-46-74 09:24:00 Test Item Value Reference Range Interpretation Comments Glucose Lvl (test code = Glucose Lvl) 103 70-99 [facility] HealthBqsfafhTZLEGSUIHFCJ5057-04-33 09:24:00 Test Item Value Reference Range Interpretation Comments Sodium Lvl (test code = Sodium Lvl) 138 135-145 [facility] HealthPfjbcjzACOQDKVTSZSG2111-99-68 09:24:00 Test Item Value Reference Range Interpretation Comments Creatinine Lvl (test code = Creatinine 1.1 0.5-1.4 Lvl) [facility] HealthTetraqlEOMYGFZDSTVF9890-96-83 09:24:00 Test Item Value Reference Range Interpretation Comments Chloride Lvl (test code = Chloride Lvl) 107 95-109 [facility] HealthQgpdyloNGYGMQWLUDDU8765-86-63 09:24:00 Test Item Value Reference Range Interpretation Comments Potassium Lvl (test code = Potassium 4.1 3.5-5.1 Lvl) [facility] HealthFpbfdytRVSIIAZHDWGX1783-12-42 09:24:00 Test Item Value Reference Range Interpretation Comments CO2 (test code = CO2) 25 24-32 [facility] HealthHuxsvqjKPISEOKZTQJJ8204-44-03 09:24:00 Test Item Value Reference Range Interpretation Comments Calcium Lvl (test code = Calcium Lvl) 8.3 8.5-10.5 [facility] HealthOdlvqdeDHNFYHPQIXGM2314-49-25 09:24:00 Test Item Value Reference Range Interpretation Comments eGFR (test code = eGFR) 54 [facility] AllianceHblpineKEMKHZWZCU6554-02-79 09:24:00 Test Item Value Reference Range Interpretation Comments INR (test code = INR) 1.24 0.85-1.17 [facility] AllianceIknmeprMPAQJYWFFY5929-95-72 09:24:00 Test Item Value Reference Range Interpretation Comments PT (test code = PT) 15.5 s 12.0-14.7 [facility] AllianceFsvubzqNTUVNZUZZX7401-97-48 09:24:00 Test Item Value Reference Range Interpretation Comments PTT (test code = PTT) 31.2 s 22.9-35.8 [facility] AllianceDoozezvCLGYYWYUNK9165-91-42 09:24:00 Test Item Value Reference Range Interpretation Comments MPV (test code = MPV) 7.0 7.4-10.4 [facility] AllianceAwurewpDGUWWXBZQS8845-08-35 09:24:00 Test Item Value Reference Range Interpretation Comments RDW (test code = RDW) 19.0 11.5-14.5 [facility] AlliancePbgkoecEYIYYXQFVG1723-80-46 09:24:00 Test Item Value Reference Range Interpretation Comments MCH (test code = MCH) 31.0 pg 27.0-31.0 [facility] AllianceJnfmnlfMONBRBNMCN8681-61-67 09:24:00 Test Item Value Reference Range Interpretation Comments MCHC (test code = MCHC) 34.2 32.0-36.0 [facility] AllianceGrqzsuaGVKSAIICFH8919-54-04 09:24:00 Test Item Value Reference Range Interpretation Comments WBC (test code = WBC) 8.6 3.7-10.4 [facility] AllianceWbnkxueJOTYYJSKCL7763-99-31 09:24:00 Test Item Value Reference Range Interpretation Comments Platelet (test code = Platelet) 116 133-450 [facility] AllianceCeeimxeSYDXXVEHBH5800-30-50 09:24:00 Test Item Value Reference Range Interpretation Comments Hgb (test code = Hgb) 10.3 12.0-16.0 [facility] AllianceToldyocFFWENAIWMW8369-95-69 09:24:00 Test Item Value Reference Range Interpretation Comments RBC (test code = RBC) 3.34 4.20-5.40 [facility] AllianceHglmtpwLTDPWIZMNT9738-87-71 09:24:00 Test Item Value Reference Range Interpretation Comments Hct (test code = Hct) 30.2 36.0-48.0 [facility] AllianceMatnupxDGRAVZDMAN6736-87-22 09:24:00 Test Item Value Reference Range Interpretation Comments MCV (test code = MCV) 90.6 81.0-99.0 [facility] AllianceHexcyvkJLYXNOQHXF7085-54-35 09:24:00 Test Item Value Reference Range Interpretation Comments Basophils # (test code 0.0 See_Comment [Aut omated message] The = Basophils #) system which generated this result tra nsmitted reference range : <=0.2. The reference r katie was not used to int erpret this result as normal/abnormal . [facility] AllianceMqjleghLRADVJVAVU3014-03-14 09:24:00 Test Item Value Reference Range Interpretation Comments Eosinophils # (test code 0.0 See_Comment [A utomated message] The = Eosinophils #) system whic h generated this result tra nsmitted reference range : <=0.5. The reference r katie was not used to int erpret this result as normal/abnormal . [facility] AllianceFuhdlfpNYOBXNXIKF7801-42-09 09:24:00 Test Item Value Reference Range Interpretation Comments Lymphocytes # (test code = Lymphocytes 1.3 1.0-5.5 #) [facility] AllianceUxovrknJIIKOAXKKE5683-89-23 09:24:00 Test Item Value Reference Range Interpretation Comments Segs-Bands # (test code = Segs-Bands #) 6.7 1.5-8.1 [facility] AllianceIjblmybGOPYLRXGDN4521-16-10 09:24:00 Test Item Value Reference Range Interpretation Comments Monocytes # (test code 0.5 See_Comment [Aut omated message] The = Monocytes #) system which generated this result tra nsmitted reference range : <=0.8. The reference r katie was not used to int erpret this result as normal/abnormal . [facility] AllianceTixndefKIAEPXDBJD5937-11-58 09:24:00 Test Item Value Reference Range Interpretation Comments Eosinophils (test code = 0.2 See_Comment [A utomated message] The Eosinophils) system which ge nerated this result tra nsmitted reference range : <=4.0. The reference r katie was not used to int erpret this result as normal/abnormal . [facility] AllianceBduttlcCEWQLKKIJZ2820-14-89 09:24:00 Test Item Value Reference Range Interpretation Comments Monocytes (test code = Monocytes) 6.4 2.0-12.0 [facility] AllianceNqupnqvXXUNARCLRH0232-59-08 09:24:00 Test Item Value Reference Range Interpretation Comments Basophils (test code = 0.2 See_Comment [Aut omated message] The Basophils) system which ge nerated this result tra nsmitted reference range : <=1.0. The reference r katie was not used to int erpret this result as normal/abnormal . [facility] AllianceKsltjnxIBNXHINGJA5874-93-34 09:24:00 Test Item Value Reference Range Interpretation Comments Segs (test code = Segs) 77.6 45.0-75.0 [facility] AllianceSyjvilwRSHVDAKLMR9384-88-27 09:24:00 Test Item Value Reference Range Interpretation Comments Lymphocytes (test code = Lymphocytes) 15.6 20.0-40.0 [facility] CXAXZHV9432-11-96 21:53:00 Test Item Value Reference Range Interpretation Comments RBC product (test code Product available = RBC product) (02/06/14 4:53 PM) [facility] [id number] 21:53:00 Test Item Value Reference Range Interpretation Comments RBC product (test code Product available = RBC product) (02/06/14 4:53 PM) [facility] [id number] 18:45:23 Test Item Value Reference Range Interpretation Comments MRSA by PCR (test Negative 15(02/06/14 1:45 code = MRSA by PCR) PM) [facility] [id number] 18:45:23 Test Item Value Reference Range Interpretation Comments MRSA by PCR (test Negative 15(02/06/14 1:45 code = MRSA by PCR) PM) [facility] AllianceVtanimySQJQTCKDDL9698-70-05 18:45:00 Test Item Value Reference Range Interpretation Comments INR (test code = INR) 1.60 0.85-1.17 [facility] AllianceWmyynklSBQJQXICCV7068-15-96 18:45:00 Test Item Value Reference Range Interpretation Comments PT (test code = PT) 18.8 s 12.0-14.7 [facility] AllianceFaqebzfXEPDATVDTW5190-63-86 18:45:00 Test Item Value Reference Range Interpretation Comments PTT (test code = PTT) 31.1 s 22.9-35.8 [facility] AllianceXpkfzaoUVRNGPNLGO8655-56-36 18:45:00 Test Item Value Reference Range Interpretation Comments INR (test code = INR) 1.60 0.85-1.17 [facility] AllianceWxclkdkKGKUSNUWEA5075-68-73 18:45:00 Test Item Value Reference Range Interpretation Comments PT (test code = PT) 18.8 s 12.0-14.7 [facility] AllianceAtxdkcfTJWOLSJBFC9922-87-07 18:45:00 Test Item Value Reference Range Interpretation Comments PTT (test code = PTT) 31.1 s 22.9-35.8 [facility] KDJDBYC7589-36-36 12:15:00 Test Item Value Reference Range Interpretation Comments Antibody Scrn (test Negative (02/06/14 7:15 code = Antibody Scrn) AM) [facility] FQUHYPJ6062-04-72 12:15:00 Test Item Value Reference Range Interpretation Comments ABO/Rh (test code = ABO/Rh) A POS [facility] BANK TXPJWPZ3595-64-05 12:15:00 Test Item Value Reference Range Interpretation Comments RBC product (test code Product available = RBC product) (02/06/14 7:15 AM) [facility] [id number] 12:15:00 Test Item Value Reference Range Interpretation Comments Antibody Scrn (test Negative (02/06/14 7:15 code = Antibody Scrn) AM) [facility] [id number] 12:15:00 Test Item Value Reference Range Interpretation Comments ABO/Rh (test code = ABO/Rh) A POS [facility] SUFGGWW5867-15-56 12:15:00 Test Item Value Reference Range Interpretation Comments RBC product (test code Product available = RBC product) (02/06/14 7:15 AM) [facility] AllianceHinhwvkEYUXVMLVEI9580-76-13 15:23:34 Test Item Value Reference Range Interpretation Comments Plav Effect Plt (test code = Plav 98 Effect Plt) [facility] AllianceNlzhsidQPSKWBZKCH0740-37-25 15:23:34 Test Item Value Reference Range Interpretation Comments Plav Effect Plt (test code = Plav 98 Effect Plt) [facility] BMNDUOQ5743-04-13 15:23:00 Test Item Value Reference Range Interpretation Comments ABO/Rh (test code = ABO/Rh) A POS [facility] KJLQIXZ0525-97-06 15:23:00 Test Item Value Reference Range Interpretation Comments Antibody Scrn (test Negative (02/01/14 10:23 code = Antibody Scrn) AM) [facility] [id number] 15:23:00 Test Item Value Reference Range Interpretation Comments ABO/Rh (test code = ABO/Rh) A POS [facility] [id number] 15:23:00 Test Item Value Reference Range Interpretation Comments Antibody Scrn (test Negative (02/01/14 10:23 code = Antibody Scrn) AM) [facility] [id number] 15:03:00 Test Item Value Reference Range Interpretation Comments RBC product (test code Product available = RBC product) (02/01/14 10:03 AM) [facility] [id number] 15:03:00 Test Item Value Reference Range Interpretation Comments RBC product (test code Product available = RBC product) (02/01/14 10:03 AM) [facility] [id number] 19:37:00 Test Item Value Reference Range Interpretation Comments eGFR (test code = eGFR) 54 [facility] [id number] 19:37:00 Test Item Value Reference Range Interpretation Comments POC Creatinine (test code = POC 1.1 0.5-1.4 Creatinine) [facility] [id number] 19:37:00 Test Item Value Reference Range Interpretation Comments eGFR (test code = eGFR) 54 [facility] [id number] 19:37:00 Test Item Value Reference Range Interpretation Comments POC Creatinine (test code = POC 1.1 0.5-1.4 Creatinine) [facility] GLUCOSE [id number] 16:57:00 Test Item Value Reference Range Interpretation Comments Gluc POC Lifscn (test code = Gluc POC 193 70-99 H Lifscn) [facility] GLUCOSE [id number] 16:57:00 Test Item Value Reference Range Interpretation Comments Comment1 (test code = Comment1) Notify RN/ [facility] GLUCOSE [id number] 16:57:00 Test Item Value Reference Range Interpretation Comments Gluc POC Lifscn (test code = Gluc POC 193 70-99 H Lifscn) [facility] GLUCOSE IGHQZKE7220-30-64 16:57:00 Test Item Value Reference Range Interpretation Comments Comment1 (test code = Comment1) Notify RN/ [facility] GLUCOSE [id number] 12:14:00 Test Item Value Reference Range Interpretation Comments Gluc POC Lifscn (test code = Gluc POC 138 70-99 H Lifscn) [facility] GLUCOSE [id number] 12:14:00 Test Item Value Reference Range Interpretation Comments Comment1 (test code = Comment1) Notify RN/ [facility] GLUCOSE [id number] 12:14:00 Test Item Value Reference Range Interpretation Comments Gluc POC Lifscn (test code = Gluc POC 138 70-99 H Lifscn) [facility] GLUCOSE [id number] 12:14:00 Test Item Value Reference Range Interpretation Comments Comment1 (test code = Comment1) Notify RN/ [facility] GLUCOSE [id number] 01:24:00 Test Item Value Reference Range Interpretation Comments Comment1 (test code = Comment1) Notify RN/ [facility] GLUCOSE [id number] 01:24:00 Test Item Value Reference Range Interpretation Comments Gluc POC Lifscn (test code = Gluc POC 182 70-99 H Lifscn) [facility] GLUCOSE [id number] 01:24:00 Test Item Value Reference Range Interpretation Comments Comment2 (test code = Assess Patient Comment2) [facility] GLUCOSE [id number] 01:24:00 Test Item Value Reference Range Interpretation Comments Comment1 (test code = Comment1) Notify RAMIREZ/ [facility] GLUCOSE [id number] 01:24:00 Test Item Value Reference Range Interpretation Comments Gluc POC Lifscn (test code = Gluc POC 182 70-99 H Lifscn) [facility] GLUCOSE [id number] 01:24:00 Test Item Value Reference Range Interpretation Comments Comment2 (test code = Assess Patient Comment2) [facility]0013[facility] 10:40:00 Test Item Value Reference Range Interpretation Comments Trig (test code = Trig) [facility] HospitalSiqebqwGTMDSBLRJ5272-30-82 10:40:00 Test Item Value Reference Range Interpretation Comments HDL (test code = HDL) 39 L [facility] HospitalTkzkhdnXLXRTCUQC3826-05-69 10:40:00 Test Item Value Reference Range Interpretation Comments CHD Risk (test code = CHD Risk) 4.38 3.90-5.80 [facility]soeenhVWAULCBLV2227-49-47 10:40:00 Test Item Value Reference Range Interpretation Comments Chol (test code = Chol) [address] [facility] CenterFcxbfuuRFWIZCGLS7207-33-41 10:40:00 Test Item Value Reference Range Interpretation Comments LDL (test code = LDL) [address] [facility] CenterHgmrlcdGHRGZZEEH8658-55-69 10:40:00 Test Item Value Reference Range Interpretation Comments Trig (test code = Trig) [address] [facility] HospitalHxlkcbeYWDRNPEKI3931-61-06 10:40:00 Test Item Value Reference Range Interpretation Comments HDL (test code = HDL) 39 L [facility] HospitalRdconujRZKPAVQKM2708-28-11 10:40:00 Test Item Value Reference Range Interpretation Comments CHD Risk (test code = CHD Risk) 4.38 3.90-5.80 N [facility] HospitalAixeewwJPCEHGOGT1646-27-21 10:40:00 Test Item Value Reference Range Interpretation Comments Chol (test code = Chol) [address] [facility] HospitalZugknedWGMIHIILS8228-45-08 10:40:00 Test Item Value Reference Range Interpretation Comments LDL (test code = LDL) [address] [facility] GLUCOSE [id number] 01:51:00 Test Item Value Reference Range Interpretation Comments Comment2 (test code = Assess Patient Comment2) [facility] GLUCOSE [id number] 01:51:00 Test Item Value Reference Range Interpretation Comments Comment2 (test code = Assess Patient Comment2) [facility] GLUCOSE [id number] 16:28:00 Test Item Value Reference Range Interpretation Comments Comment2 (test code = Assess Patient Comment2) [facility] GLUCOSE [id number] 16:28:00 Test Item Value Reference Range Interpretation Comments Comment2 (test code = Assess Patient Comment2) [facility] HospitalMhmdhylMQCUIIKZM8856-91-22 07:45:00 Test Item Value Reference Range Interpretation Comments Phosphorus (test code = Phosphorus) 3.2 2.5-4.5 N [facility] HospitalTwivyprQXIRFNEGL8476-85-86 07:45:00 Test Item Value Reference Range Interpretation Comments Magnesium Lvl (test code = Magnesium 2.0 1.8-2.4 N Lvl) [facility] HospitalMrkaspiAYYHTSOVA4752-85-55 07:45:00 Test Item Value Reference Range Interpretation Comments eGFR (test code = eGFR) 55 [facility] HospitalLxyczfuEBAZSIYFW8685-62-27 07:45:00 Test Item Value Reference Range Interpretation Comments Glucose Lvl (test code = Glucose Lvl) 98 70-99 N [facility] HospitalJsvihqhXMUSIMYJZ8292-13-71 07:45:00 Test Item Value Reference Range Interpretation Comments Creatinine Lvl (test code = Creatinine 1.1 0.5-1.4 N Lvl) [facility] HospitalPwabkooBFFEXQEAO5544-84-67 07:45:00 Test Item Value Reference Range Interpretation Comments Sodium Lvl (test code = Sodium Lvl) 137 135-145 N [facility] HospitalEmhwbgkRMJAYQBQI0348-78-50 07:45:00 Test Item Value Reference Range Interpretation Comments BUN (test code = BUN) 24 7-22 H [facility] HospitalCplwodtAMTAWFSJR5295-72-85 07:45:00 Test Item Value Reference Range Interpretation Comments Calcium Lvl (test code = Calcium Lvl) 8.2 8.5-10.5 L [facility] HospitalWoswsofMWFHHVMOX4151-52-21 07:45:00 Test Item Value Reference Range Interpretation Comments AGAP (test code = AGAP) 14.2 10.0-20.0 N [facility] HospitalTgmvsjjIWOOYUWIW3394-62-52 07:45:00 Test Item Value Reference Range Interpretation Comments Chloride Lvl (test code = Chloride Lvl) 94 95-109 L [facility] HospitalKjcjhteXBQDRPGPW1130-97-37 07:45:00 Test Item Value Reference Range Interpretation Comments CO2 (test code = CO2) 32 24-32 N [facility] HospitalWhhytavLWAFHXYED2485-76-59 07:45:00 Test Item Value Reference Range Interpretation Comments Potassium Lvl (test code = Potassium 3.2 3.5-5.1 L Lvl) [facility] AllianceYbbsmveKJFSSNMODF2722-01-89 07:45:00 Test Item Value Reference Range Interpretation Comments Basophils # (test code 0.0 See_Comment N [Aut omated message] The = Basophils #) system which generated this result tra nsmitted reference range : <=0.2. The reference r katie was not used to int erpret this result as normal/abnormal . [facility] AllianceXznhdtyKGQCIKWDGV1177-18-09 07:45:00 Test Item Value Reference Range Interpretation Comments Eosinophils # (test code 0.0 See_Comment N [A utomated message] The = Eosinophils #) system whic h generated this result tra nsmitted reference range : <=0.5. The reference r katie was not used to int erpret this result as normal/abnormal . [facility] AllianceWuwctakUAZHFPOAMA8569-97-27 07:45:00 Test Item Value Reference Range Interpretation Comments Monocytes # (test code 0.6 See_Comment N [Aut omated message] The = Monocytes #) system which generated this result tra nsmitted reference range : <=0.8. The reference r katie was not used to int erpret this result as normal/abnormal . [facility] AllianceCmkwzpyYOWYOIJLHB4279-87-59 07:45:00 Test Item Value Reference Range Interpretation Comments Lymphocytes # (test code = Lymphocytes 1.3 1.0-5.5 N #) [facility] AllianceNmfdajeIVYDOQKYQL2669-94-81 07:45:00 Test Item Value Reference Range Interpretation Comments Basophils (test code = 0.0 See_Comment N [Aut omated message] The Basophils) system which ge nerated this result tra nsmitted reference range : <=1.0. The reference r katie was not used to int erpret this result as normal/abnormal . [facility] AllianceYnrgzayZPWOWWUVKD3014-47-11 07:45:00 Test Item Value Reference Range Interpretation Comments Segs-Bands # (test code = Segs-Bands #) 12.6 1.5-8.1 H [facility] AllianceHiniivvXFZVNFCNXC6669-81-38 07:45:00 Test Item Value Reference Range Interpretation Comments Monocytes (test code = Monocytes) 4.4 2.0-12.0 N [facility] AllianceOqbmlgpYMBLMPTXUX7448-65-46 07:45:00 Test Item Value Reference Range Interpretation Comments Eosinophils (test code = 0.0 See_Comment N [A utomated message] The Eosinophils) system which ge nerated this result tra nsmitted reference range : <=4.0. The reference r katie was not used to int erpret this result as normal/abnormal . [facility] AllianceQhdwlzqWUGZNCQMEI6236-88-44 07:45:00 Test Item Value Reference Range Interpretation Comments Segs (test code = Segs) 86.5 45.0-75.0 H [facility] AllianceWmwkqyoMPFJOBJIFM7083-45-28 07:45:00 Test Item Value Reference Range Interpretation Comments Lymphocytes (test code = Lymphocytes) 9.1 20.0-40.0 L [facility] AllianceIeslxhvMTPPKNVUUK4576-17-20 07:45:00 Test Item Value Reference Range Interpretation Comments MCV (test code = MCV) 92.9 81.0-99.0 N [facility] AllianceAmptmsnUHWTUIZNIP0478-52-16 07:45:00 Test Item Value Reference Range Interpretation Comments MCH (test code = MCH) 32.0 pg 27.0-31.0 H [facility] AllianceQqpypzqSRMSXNBJCG4349-43-85 07:45:00 Test Item Value Reference Range Interpretation Comments Hct (test code = Hct) 29.0 36.0-48.0 L [facility] AllianceYafdxckXLZGWDLGVU8776-52-86 07:45:00 Test Item Value Reference Range Interpretation Comments Hgb (test code = Hgb) 10.0 12.0-16.0 L [facility] AllianceTewmyslNQMLJCJZJW9386-40-31 07:45:00 Test Item Value Reference Range Interpretation Comments Platelet (test code = Platelet) 286 133-450 N [facility] AllianceTixkhhdYNRSXYWOWM4029-49-91 07:45:00 Test Item Value Reference Range Interpretation Comments MPV (test code = MPV) 7.2 7.4-10.4 L [facility] AllianceKplxuigLQOQMOUCRU2301-27-98 07:45:00 Test Item Value Reference Range Interpretation Comments RDW (test code = RDW) 16.8 11.5-14.5 H [facility] AllianceVdqpnslHHNHQWDTMP7606-03-42 07:45:00 Test Item Value Reference Range Interpretation Comments MCHC (test code = MCHC) 34.5 32.0-36.0 N [facility] AllianceOcwcvktLZKCLILXWW7544-34-39 07:45:00 Test Item Value Reference Range Interpretation Comments RBC (test code = RBC) 3.12 4.20-5.40 L [facility] AllianceSvjtaqtOGZPSJPEEK0535-19-26 07:45:00 Test Item Value Reference Range Interpretation Comments WBC (test code = WBC) 14.5 3.7-10.4 [facility]kiescz[facility]XYGGVFKUV3371-37-04 07:45:00 Test Item Value Reference Range Interpretation Comments Prealbumin (test code = Prealbumin) 16.1 18.0-45.0 L [facility]HkqzzanTJLXWRAAT4312-03-88 07:45:00 Test Item Value Reference Range Interpretation Comments Phosphorus (test code = Phosphorus) 3.2 2.5-4.5 N [facility] HospitalHgmwxsuIHMBSBNXO9905-54-69 07:45:00 Test Item Value Reference Range Interpretation Comments Magnesium Lvl (test code = Magnesium 2.0 1.8-2.4 N Lvl) [facility] HospitalXnszmfbPYEVVYXAF6789-07-05 07:45:00 Test Item Value Reference Range Interpretation Comments eGFR (test code = eGFR) 55 [facility] HospitalUzbrrhtWKPGQBCSX0133-88-92 07:45:00 Test Item Value Reference Range Interpretation Comments Glucose Lvl (test code = Glucose Lvl) 98 70-99 N [facility] HospitalAikhuflHZRMSVNGH9814-49-30 07:45:00 Test Item Value Reference Range Interpretation Comments Creatinine Lvl (test code = Creatinine 1.1 0.5-1.4 N Lvl) [facility] HospitalUhfmpujBRGJNIGFF6635-04-78 07:45:00 Test Item Value Reference Range Interpretation Comments Sodium Lvl (test code = Sodium Lvl) 137 135-145 N [facility] HospitalObmrhecQHOPBLEFY5630-35-73 07:45:00 Test Item Value Reference Range Interpretation Comments BUN (test code = BUN) 24 7-22 H [facility] HospitalYuopjqkLDTPZJUBW8238-58-26 07:45:00 Test Item Value Reference Range Interpretation Comments Calcium Lvl (test code = Calcium Lvl) 8.2 8.5-10.5 L [facility] HospitalPpknwzmVHLCJKQHV8033-39-28 07:45:00 Test Item Value Reference Range Interpretation Comments AGAP (test code = AGAP) 14.2 10.0-20.0 N [facility] HospitalJgepvwzHWLYKWRTA0762-58-79 07:45:00 Test Item Value Reference Range Interpretation Comments Chloride Lvl (test code = Chloride Lvl) 94 95-109 L [facility] HospitalMdinnucRRSFUPJKC9783-50-37 07:45:00 Test Item Value Reference Range Interpretation Comments CO2 (test code = CO2) 32 24-32 N [facility] HospitalNmilrwbLWINPVYPL4328-09-98 07:45:00 Test Item Value Reference Range Interpretation Comments Potassium Lvl (test code = Potassium 3.2 3.5-5.1 L Lvl) [facility] AllianceGhplcfgAGIUJIOLKG2280-70-08 07:45:00 Test Item Value Reference Range Interpretation Comments Basophils # (test code 0.0 See_Comment N [Aut omated message] The = Basophils #) system which generated this result tra nsmitted reference range : <=0.2. The reference r katie was not used to int erpret this result as normal/abnormal . [facility] AllianceAngsnxwIPEVIOCYCQ4952-79-43 07:45:00 Test Item Value Reference Range Interpretation Comments Eosinophils # (test code 0.0 See_Comment N [A utomated message] The = Eosinophils #) system whic h generated this result tra nsmitted reference range : <=0.5. The reference r katie was not used to int erpret this result as normal/abnormal . [facility] AllianceGbkokpaVRQISRHJDV5626-30-47 07:45:00 Test Item Value Reference Range Interpretation Comments Monocytes # (test code 0.6 See_Comment N [Aut omated message] The = Monocytes #) system which generated this result tra nsmitted reference range : <=0.8. The reference r katie was not used to int erpret this result as normal/abnormal . [facility] AllianceIguqyajZVDWFRVVPJ9639-69-59 07:45:00 Test Item Value Reference Range Interpretation Comments Lymphocytes # (test code = Lymphocytes 1.3 1.0-5.5 N #) [facility] AllianceYpklxwsVAFSXDHGZX7882-43-30 07:45:00 Test Item Value Reference Range Interpretation Comments Basophils (test code = 0.0 See_Comment N [Aut omated message] The Basophils) system which ge nerated this result tra nsmitted reference range : <=1.0. The reference r katie was not used to int erpret this result as normal/abnormal . [facility] AllianceWstcysrIGOJQWDXZK2706-29-19 07:45:00 Test Item Value Reference Range Interpretation Comments Segs-Bands # (test code = Segs-Bands #) 12.6 1.5-8.1 H [facility] AllianceFvvqzzcABTZNAEUMV7630-34-17 07:45:00 Test Item Value Reference Range Interpretation Comments Monocytes (test code = Monocytes) 4.4 2.0-12.0 N [facility] AllianceJrcefhuFKDFKNSXIU4215-86-96 07:45:00 Test Item Value Reference Range Interpretation Comments Eosinophils (test code = 0.0 See_Comment N [A utomated message] The Eosinophils) system which ge nerated this result tra nsmitted reference range : <=4.0. The reference r katie was not used to int erpret this result as normal/abnormal . [facility] AllianceTxcrofzXQRIJACSQX2011-16-73 07:45:00 Test Item Value Reference Range Interpretation Comments Segs (test code = Segs) 86.5 45.0-75.0 H [facility] AllianceHriwcdkZAZZXJYIKD2129-18-83 07:45:00 Test Item Value Reference Range Interpretation Comments Lymphocytes (test code = Lymphocytes) 9.1 20.0-40.0 L [facility] AllianceEessrhrYZQPYSGLJB4840-61-44 07:45:00 Test Item Value Reference Range Interpretation Comments MCV (test code = MCV) 92.9 81.0-99.0 N [facility] AllianceJlluyriYWMXSIRVSU3463-11-70 07:45:00 Test Item Value Reference Range Interpretation Comments MCH (test code = MCH) 32.0 pg 27.0-31.0 H [facility] AllianceMhpkwimWCLGNNVISG6622-77-45 07:45:00 Test Item Value Reference Range Interpretation Comments Hct (test code = Hct) 29.0 36.0-48.0 L [facility] AllianceXecifttOJLCCIKDSU3104-40-38 07:45:00 Test Item Value Reference Range Interpretation Comments Hgb (test code = Hgb) 10.0 12.0-16.0 L [facility] AllianceYsmszvgLIDGRPETVF4358-65-23 07:45:00 Test Item Value Reference Range Interpretation Comments Platelet (test code = Platelet) 286 133-450 N [facility] AlliancePyouyvbVRTDAKTTRA1871-89-91 07:45:00 Test Item Value Reference Range Interpretation Comments MPV (test code = MPV) 7.2 7.4-10.4 L [facility] AllianceJshcncyLNEYTMSVNC3036-00-22 07:45:00 Test Item Value Reference Range Interpretation Comments RDW (test code = RDW) 16.8 11.5-14.5 H [facility] AllianceWdakhzhTPPVMVSSZG1271-47-00 07:45:00 Test Item Value Reference Range Interpretation Comments MCHC (test code = MCHC) 34.5 32.0-36.0 N [facility] AllianceYeqobxaHFUSRGEDTQ5241-39-39 07:45:00 Test Item Value Reference Range Interpretation Comments RBC (test code = RBC) 3.12 4.20-5.40 L [facility] AllianceSqbjttlUZGIGLZIET6892-25-71 07:45:00 Test Item Value Reference Range Interpretation Comments WBC (test code = WBC) 14.5 3.7-10.4 H [facility]XpzumhpIOEWBVBRVR3333-32-17 07:45:00 Test Item Value Reference Range Interpretation Comments Prealbumin (test code = Prealbumin) 16.1 18.0-45.0 L [facility] HospitalSyjfgmaVPKGOKGKP0396-93-35 07:55:00 Test Item Value Reference Range Interpretation Comments eGFR (test code = eGFR) 61 [facility] HospitalTixrsrdDRDNDQSVB2749-30-05 07:55:00 Test Item Value Reference Range Interpretation Comments Calcium Lvl (test code = Calcium Lvl) 8.1 8.5-10.5 L [facility] HospitalIxwfrhmECMMBNCAW9854-39-88 07:55:00 Test Item Value Reference Range Interpretation Comments AGAP (test code = AGAP) 17.4 10.0-20.0 N [facility] HospitalXzbcuueTSWYVOUPF4505-05-10 07:55:00 Test Item Value Reference Range Interpretation Comments Sodium Lvl (test code = Sodium Lvl) 147 135-145 H [facility] HospitalEaarwvbJJZMUCNJH2628-80-28 07:55:00 Test Item Value Reference Range Interpretation Comments Potassium Lvl (test code = Potassium 3.4 3.5-5.1 L Lvl) [facility] HospitalEliyhxhDPNXDVWAI2443-43-76 07:55:00 Test Item Value Reference Range Interpretation Comments Creatinine Lvl (test code = Creatinine 1.0 0.5-1.4 N Lvl) [facility] HospitalDsrvydoVEYUBNWLT4865-23-22 07:55:00 Test Item Value Reference Range Interpretation Comments Chloride Lvl (test code = Chloride Lvl) 104 95-109 N [facility] HospitalLangozzPKWEDWALV3111-05-62 07:55:00 Test Item Value Reference Range Interpretation Comments CO2 (test code = CO2) 29 24-32 N [facility] HospitalMsthboqDCCJCZRMR4616-77-53 07:55:00 Test Item Value Reference Range Interpretation Comments BUN (test code = BUN) 25 7-22 H [facility] HospitalPfqbxqaFRVYYQGPL7734-56-35 07:55:00 Test Item Value Reference Range Interpretation Comments Glucose Lvl (test code = Glucose Lvl) 96 70-99 N [facility] AllianceTsbxkanWNYIULCUOK5819-92-53 07:55:00 Test Item Value Reference Range Interpretation Comments RDW (test code = RDW) 17.3 11.5-14.5 H [facility] AllianceBhbmyfmRPBTTYDATT5480-35-54 07:55:00 Test Item Value Reference Range Interpretation Comments Platelet (test code = Platelet) 249 133-450 N [facility] AllianceDognxjgPUITOYMCKE8487-90-15 07:55:00 Test Item Value Reference Range Interpretation Comments MPV (test code = MPV) 7.4 7.4-10.4 N [facility] AllianceRhgumixVHPFFYWCVA6264-99-87 07:55:00 Test Item Value Reference Range Interpretation Comments MCHC (test code = MCHC) 33.8 32.0-36.0 N [facility] AllianceEseqxsaXNKKCJVAAI8954-50-00 07:55:00 Test Item Value Reference Range Interpretation Comments Hct (test code = Hct) 27.3 36.0-48.0 L [facility] AllianceZmwjuxeRKUGVCUWEC8694-93-70 07:55:00 Test Item Value Reference Range Interpretation Comments MCV (test code = MCV) 93.3 81.0-99.0 N [facility] AllianceCvfdndqTNRUJESOPD5420-54-26 07:55:00 Test Item Value Reference Range Interpretation Comments MCH (test code = MCH) 31.6 pg 27.0-31.0 H [facility] AllianceEthjprxFNDLYCEFSU3013-12-82 07:55:00 Test Item Value Reference Range Interpretation Comments Hgb (test code = Hgb) 9.3 12.0-16.0 L [facility] AllianceLyemdbcUZOEXZKWQU9883-69-02 07:55:00 Test Item Value Reference Range Interpretation Comments WBC (test code = WBC) 14.3 3.7-10.4 H [facility] AllianceOlhaohnBWFNZYXYEZ2122-31-64 07:55:00 Test Item Value Reference Range Interpretation Comments RBC (test code = RBC) 2.93 4.20-5.40 L [facility] AllianceHqoxnmzCEVSTXDKBJ4473-19-52 07:55:00 Test Item Value Reference Range Interpretation Comments Large Plt (test code = Slight *ABN*(02/27/2013 A Large Plt) 02:55:00) [facility] AllianceHmwspvmPUREUEYXXD2765-53-11 07:55:00 Test Item Value Reference Range Interpretation Comments Hypochrom (test code = Slight (02/27/2013 N Hypochrom) 02:55:00) [facility] AllianceUekjucwFJNZVDBNHC2426-59-86 07:55:00 Test Item Value Reference Range Interpretation Comments Polychrom (test code = Slight (02/27/2013 N Polychrom) 02:55:00) [facility] AllianceYbvmqzoCSFOGLUPHY8529-71-41 07:55:00 Test Item Value Reference Range Interpretation Comments Anisocyte (test code = 1+ *ABN*(02/27/2013 A Anisocyte) 02:55:00) [facility] AllianceAomcudcRSJSYCPDLY4562-04-37 07:55:00 Test Item Value Reference Range Interpretation Comments Plt Morph (test code = Normal (02/27/2013 N Plt Morph) 02:55:00) [facility] AllianceSryypomGXZFDZORKB8755-76-42 07:55:00 Test Item Value Reference Range Interpretation Comments Macrocyte (test code = 1+ *ABN*(02/27/2013 A Macrocyte) 02:55:00) [facility] AllianceWwrdjsrQISGKNACBA1177-53-69 07:55:00 Test Item Value Reference Range Interpretation Comments Segs (test code = Segs) 72.0 45.0-75.0 N [facility] AllianceVshhtvvUEHEQGXABR2564-66-92 07:55:00 Test Item Value Reference Range Interpretation Comments Monocytes (test code = Monocytes) 6.0 2.0-12.0 N [facility] AllianceErmrljaTXXIJEMFNT2202-64-97 07:55:00 Test Item Value Reference Range Interpretation Comments Bands (test code = 10.0 See_Comment N [Automat ed message] The Bands) system which ge nerated this result transmit matteo reference range : <=11.0. The reference r katie was not used to interpr et this result as miesha l/abnormal. [facility] AllianceFgdbipnTUBMORANWB6230-52-16 07:55:00 Test Item Value Reference Range Interpretation Comments Atypical Lymphs (test code = Atypical 0.0 N Lymphs) [facility] AllianceKukiluuDLAOAERMSK8627-42-67 07:55:00 Test Item Value Reference Range Interpretation Comments Lymphocytes (test code = Lymphocytes) 12.0 20.0-40.0 L [facility] AllianceAsyrjeaWWIQTMXJGW5111-58-15 07:55:00 Test Item Value Reference Range Interpretation Comments Lymphocytes # (test code = Lymphocytes 1.7 1.0-5.5 N #) [facility] AllianceZpnctgdGHZTBMBKMS7026-81-74 07:55:00 Test Item Value Reference Range Interpretation Comments Monocytes # (test code 0.9 See_Comment H [Aut omated message] The = Monocytes #) system which generated this result tra nsmitted reference range : <=0.8. The reference r katie was not used to int erpret this result as normal/abnormal . [facility] AllianceUfdhonzHXVFWDVCGH7091-98-88 07:55:00 Test Item Value Reference Range Interpretation Comments Segs-Bands # (test code = Segs-Bands #) 11.7 1.5-8.1 H [facility] HospitalEoocyfuZMQFGNPUA5362-43-29 07:55:00 Test Item Value Reference Range Interpretation Comments eGFR (test code = eGFR) 61 [facility] HospitalRituohtEOLKYYLAC1721-05-36 07:55:00 Test Item Value Reference Range Interpretation Comments Calcium Lvl (test code = Calcium Lvl) 8.1 8.5-10.5 L [facility] HospitalQyqpotmZRGMRGIBH3588-51-94 07:55:00 Test Item Value Reference Range Interpretation Comments AGAP (test code = AGAP) 17.4 10.0-20.0 N [facility] HospitalKdtoeprHGSHWIUVW4330-45-37 07:55:00 Test Item Value Reference Range Interpretation Comments Sodium Lvl (test code = Sodium Lvl) 147 135-145 H [facility] HospitalTnzephjJAKWADVJB5038-76-56 07:55:00 Test Item Value Reference Range Interpretation Comments Potassium Lvl (test code = Potassium 3.4 3.5-5.1 L Lvl) [facility] HospitalPnpcqjcVQOGEEJIS9004-02-41 07:55:00 Test Item Value Reference Range Interpretation Comments Creatinine Lvl (test code = Creatinine 1.0 0.5-1.4 N Lvl) [facility] HospitalMtndevcJDIPAMHZO8467-43-86 07:55:00 Test Item Value Reference Range Interpretation Comments Chloride Lvl (test code = Chloride Lvl) 104 95-109 N [facility] HospitalBkukhexFQSWVEKCC1639-66-32 07:55:00 Test Item Value Reference Range Interpretation Comments CO2 (test code = CO2) 29 24-32 N [facility] HospitalOwpcqgfVZEROGAMT9462-20-25 07:55:00 Test Item Value Reference Range Interpretation Comments BUN (test code = BUN) 25 7-22 H [facility] HospitalPsckxfwNHAVSQSTD1356-85-06 07:55:00 Test Item Value Reference Range Interpretation Comments Glucose Lvl (test code = Glucose Lvl) 96 70-99 N [facility] AllianceJftksoqUTXGISVBSJ7509-21-38 07:55:00 Test Item Value Reference Range Interpretation Comments RDW (test code = RDW) 17.3 11.5-14.5 H [facility] AllianceWmvovhpYJWPBOSAKO6063-63-94 07:55:00 Test Item Value Reference Range Interpretation Comments Platelet (test code = Platelet) 249 133-450 N [facility] AllianceMkktbauXUNIWEMQXP5666-96-45 07:55:00 Test Item Value Reference Range Interpretation Comments MPV (test code = MPV) 7.4 7.4-10.4 N [facility] AllianceIzqezpoFRIMOLVDTX4113-41-23 07:55:00 Test Item Value Reference Range Interpretation Comments MCHC (test code = MCHC) 33.8 32.0-36.0 N [facility] AllianceRmnyqqiJSCBKGOZBW1444-97-27 07:55:00 Test Item Value Reference Range Interpretation Comments Hct (test code = Hct) 27.3 36.0-48.0 L [facility] AllianceSgogvfaKZSCZZRBCV9365-43-80 07:55:00 Test Item Value Reference Range Interpretation Comments MCV (test code = MCV) 93.3 81.0-99.0 N [facility] AllianceVybercaMRWFJTKPCK3656-91-17 07:55:00 Test Item Value Reference Range Interpretation Comments MCH (test code = MCH) 31.6 pg 27.0-31.0 H [facility] AllianceWodqclnYSTDSDNNCG5645-99-76 07:55:00 Test Item Value Reference Range Interpretation Comments Hgb (test code = Hgb) 9.3 12.0-16.0 L [facility] AllianceWongyphYZJPXBBRYE9268-50-71 07:55:00 Test Item Value Reference Range Interpretation Comments WBC (test code = WBC) 14.3 3.7-10.4 H [facility] AllianceLyqiakuEKPDVRMNZH9303-41-22 07:55:00 Test Item Value Reference Range Interpretation Comments RBC (test code = RBC) 2.93 4.20-5.40 L [facility] AllianceTjiwbhcXPXNLLJQTP9593-71-59 07:55:00 Test Item Value Reference Range Interpretation Comments Large Plt (test code = Slight *ABN*(02/27/2013 A Large Plt) 02:55:00) [facility] AllianceBkusdoeQZGBGCDTKP0986-23-70 07:55:00 Test Item Value Reference Range Interpretation Comments Hypochrom (test code = Slight (02/27/2013 N Hypochrom) 02:55:00) [facility] AllianceNtxljrwAEOZVKZHPU5879-67-32 07:55:00 Test Item Value Reference Range Interpretation Comments Polychrom (test code = Slight (02/27/2013 N Polychrom) 02:55:00) [facility] AllianceNqiakxkLIDKGXWMFU0542-60-87 07:55:00 Test Item Value Reference Range Interpretation Comments Anisocyte (test code = 1+ *ABN*(02/27/2013 A Anisocyte) 02:55:00) [facility] AllianceQttwwguAMEKHIOJLB1332-05-89 07:55:00 Test Item Value Reference Range Interpretation Comments Plt Morph (test code = Normal (02/27/2013 N Plt Morph) 02:55:00) [facility] AllianceMqephchOKGUXCLDTS8518-80-95 07:55:00 Test Item Value Reference Range Interpretation Comments Macrocyte (test code = 1+ *ABN*(02/27/2013 A Macrocyte) 02:55:00) [facility] AllianceXndljjgXVMJVHIXMV7911-46-30 07:55:00 Test Item Value Reference Range Interpretation Comments Segs (test code = Segs) 72.0 45.0-75.0 N [facility] AllianceNuwrhcaMZDTMIMJGT5490-23-36 07:55:00 Test Item Value Reference Range Interpretation Comments Monocytes (test code = Monocytes) 6.0 2.0-12.0 N [facility] AllianceHtopyarTZHVCRVIEO5911-10-41 07:55:00 Test Item Value Reference Range Interpretation Comments Bands (test code = 10.0 See_Comment N [Automat ed message] The Bands) system which ge nerated this result transmit matteo reference range : <=11.0. The reference r katie was not used to interpr et this result as miesha l/abnormal. [facility] AllianceRlhtprpBARQUYVVOL5116-40-86 07:55:00 Test Item Value Reference Range Interpretation Comments Atypical Lymphs (test code = Atypical 0.0 N Lymphs) [facility] AllianceTnznvjkKPARGWUIKD5337-17-60 07:55:00 Test Item Value Reference Range Interpretation Comments Lymphocytes (test code = Lymphocytes) 12.0 20.0-40.0 L [facility] AllianceYbbaybeRVLXLVEIQK7965-65-98 07:55:00 Test Item Value Reference Range Interpretation Comments Lymphocytes # (test code = Lymphocytes 1.7 1.0-5.5 N #) [facility] AllianceXmxghoxPXOBFZCUYG8247-39-13 07:55:00 Test Item Value Reference Range Interpretation Comments Monocytes # (test code 0.9 See_Comment H [Aut omated message] The = Monocytes #) system which generated this result tra nsmitted reference range : <=0.8. The reference r katie was not used to int erpret this result as normal/abnormal . [facility] AllianceZsigeakKJQZHZGNRH2687-56-38 07:55:00 Test Item Value Reference Range Interpretation Comments Segs-Bands # (test code = Segs-Bands #) 11.7 1.5-8.1 H [facility]EefwenxSqrsorqeenix1689-85-51 03:00:26 Test Item Value Reference Range Interpretation Comments Culture: Catheter Tip (test code = Culture: Catheter Tip) [facility]ressVwzsjbdLuzkmnrjunxx5732-75-53 03:00:26 Test Item Value Reference Range Interpretation Comments Culture: Catheter Tip (test code = Culture: Catheter Tip) [facility]WeoizsuByupxbqdiknc5780-15-74 03:00:00 Test Item Value Reference Range Interpretation Comments Culture: Catheter Tip (test code = Culture: Catheter Tip) [facility]ressGshgerjZlnaaegdwmyo4063-97-88 03:00:00 Test Item Value Reference Range Interpretation Comments Culture: Catheter Tip (test code = Culture: Catheter Tip) [facility]PriqzdhGHAKMPWAZ7598-08-18 20:10:15 Test Item Value Reference Range Interpretation Comments Vanco Tr TND (test code = Vanco Tr TND) 1400 [facility] HospitalZpkguvyDKACPMMUH9935-59-68 20:10:15 Test Item Value Reference Range Interpretation Comments Vanco Tr (test code = Vanco Tr) 18.9 [facility] HospitalHkdcugjKOKSLJZTD3977-11-44 20:10:15 Test Item Value Reference Range Interpretation Comments Vanco Tr TND (test code = Vanco Tr TND) 1400 [facility] HospitalKrlpvrfRLQPNRUKQ6245-37-64 20:10:15 Test Item Value Reference Range Interpretation Comments Vanco Tr (test code = Vanco Tr) 18.9 [facility] HospitalXiamawtBPYXSIADH9386-97-41 18:40:32 Test Item Value Reference Range Interpretation Comments PS Art (test code = PS Art) 12 [facility] HospitalAapdngnFFDXOXJWG3992-24-24 18:40:32 Test Item Value Reference Range Interpretation Comments pH Art (test code = pH Art) 7.51 7.35-7.45 H [facility] HospitalCvkapwqQWJUSTQKS2088-04-86 18:40:32 Test Item Value Reference Range Interpretation Comments pCO2 Art (test code = pCO2 Art) 33 35-45 L [facility] HospitalTgwqzoxUSVJKETRF1300-79-40 18:40:32 Test Item Value Reference Range Interpretation Comments pO2 Art (test code = pO2 Art) 79 80-100 L [facility] HospitalLyqhxqcQBJHDBQHO8401-89-16 18:40:32 Test Item Value Reference Range Interpretation Comments HCO3 Art (test code = HCO3 Art) 26 22-26 N [facility] HospitalWegdrdcDZLQSLAQP8735-54-57 18:40:32 Test Item Value Reference Range Interpretation Comments BE Art (test code = 4 See_Comment H [Automa matteo message] The BE Art) system which ge nerated this result transmit matteo reference range : <=2. The reference range was not used to interpr et this result as miesha l/abnormal. [facility] HospitalSrxmubdIMYHXVMXZ2800-49-00 18:40:32 Test Item Value Reference Range Interpretation Comments O2 Sat Art (test code = O2 Sat Art) 97.0 95.0-100.0 N [facility] HospitalOyvbhnpASIVCUPCM2180-38-10 18:40:32 Test Item Value Reference Range Interpretation Comments Site Art (test code = Right Ra (02/26/2013 N Site Art) 13:40:32) [facility] HospitalOysyinpVDDKLYBCH5471-34-39 18:40:32 Test Item Value Reference Range Interpretation Comments Temp Art (test code = Temp Art) 37.0 [facility] HospitalTnkjawrSOYPVBYBI7321-12-52 18:40:32 Test Item Value Reference Range Interpretation Comments Allens Art (test code Positive (02/26/2013 N = Allens Art) 13:40:32) [facility] HospitalSqhlonuYBARJBKDN0527-56-96 18:40:32 Test Item Value Reference Range Interpretation Comments Mode Art (test code = Cpap (02/26/2013 N Mode Art) 13:40:32) [facility] HospitalHsqgvuaJFAKXKZWD8797-40-58 18:40:32 Test Item Value Reference Range Interpretation Comments FiO2 Art (test code = FiO2 Art) 40.0 [facility] HospitalYerfzudUCDUVRDFQ5594-03-92 18:40:32 Test Item Value Reference Range Interpretation Comments PEEP Art (test code = PEEP Art) 7.0 [facility] HospitalMblhwfsWXKXAFLTF1191-58-91 18:40:32 Test Item Value Reference Range Interpretation Comments PS Art (test code = PS Art) 12 [facility] HospitalDzkthwwGJSZYALXB9973-76-25 18:40:32 Test Item Value Reference Range Interpretation Comments pH Art (test code = pH Art) 7.51 7.35-7.45 H [facility] HospitalCqfndxdRUNPYTHYX1795-85-98 18:40:32 Test Item Value Reference Range Interpretation Comments pCO2 Art (test code = pCO2 Art) 33 35-45 L [facility] HospitalGxxicooAVAUQJARD3344-38-22 18:40:32 Test Item Value Reference Range Interpretation Comments pO2 Art (test code = pO2 Art) 79 80-100 L [facility] HospitalUfrfavtWCZUKECFH8177-40-40 18:40:32 Test Item Value Reference Range Interpretation Comments HCO3 Art (test code = HCO3 Art) 26 22-26 N [facility] HospitalMfoqobjWVXSFBHRA2552-16-62 18:40:32 Test Item Value Reference Range Interpretation Comments BE Art (test code = 4 See_Comment H [Automa matteo message] The BE Art) system which ge nerated this result transmit matteo reference range : <=2. The reference range was not used to interpr et this result as miesha l/abnormal. [facility] EwagrouYRWKSMEVB6677-37-40 18:40:32 Test Item Value Reference Range Interpretation Comments O2 Sat Art (test code = O2 Sat Art) 97.0 95.0-100.0 N [facility] NkbfnzaSSYZIHVUR5909-56-09 18:40:32 Test Item Value Reference Range Interpretation Comments Site Art (test code = Right Ra (02/26/2013 N Site Art) 13:40:32) [facility] CenterUrxiiztQZFZZTUOS0847-61-50 18:40:32 Test Item Value Reference Range Interpretation Comments Temp Art (test code = Temp Art) 37.0 [facility] CenterWjnbnmyNQDWINROZ4602-12-53 18:40:32 Test Item Value Reference Range Interpretation Comments Allens Art (test code Positive (02/26/2013 N = Allens Art) 13:40:32) [facility] CenterKawtbqnBMYYVLJFY1128-87-15 18:40:32 Test Item Value Reference Range Interpretation Comments Mode Art (test code = Cpap (02/26/2013 N Mode Art) 13:40:32) [facility] CenterCagkavrCQVRYFPGN5126-52-94 18:40:32 Test Item Value Reference Range Interpretation Comments FiO2 Art (test code = FiO2 Art) 40.0 [facility] CenterLfqqosfRDKXAYSTW2624-07-75 18:40:32 Test Item Value Reference Range Interpretation Comments PEEP Art (test code = PEEP Art) 7.0 [facility] CenterQnzqdfyPAGMRVJAH5359-50-55 10:10:26 Test Item Value Reference Range Interpretation Comments BE Art (test code = 0 See_Comment N [Automa matteo message] The BE Art) system which ge nerated this result transmit matteo reference range : <=2. The reference range was not used to interpr et this result as miesha l/abnormal. [facility] CenterAxpblalPYSHHAZVA4942-14-25 10:10:26 Test Item Value Reference Range Interpretation Comments HCO3 Art (test code = HCO3 Art) 23 22-[address] [facility] CenterJlopnjeGYBZZAWQO6071-83-53 10:10:26 Test Item Value Reference Range Interpretation Comments Temp Art (test code = Temp Art) 37.0 [facility] CenterPpbpbdpGPMZORWFB6792-13-34 10:10:26 Test Item Value Reference Range Interpretation Comments O2 Sat Art (test code = O2 Sat Art) 97.8 95.0-100.0 N [facility] HospitalVrdfrkzUYUZWRKHG8339-62-98 10:10:26 Test Item Value Reference Range Interpretation Comments Site Art (test code = A Line (02/26/2013 N Site Art) 05:10:26) [facility] HospitalYpesiejMGSGCJFXW9374-26-69 10:10:26 Test Item Value Reference Range Interpretation Comments Rate Art (test code = Rate Art) 12 [facility] HospitalZvbdicxWYKYESAFC9486-53-29 10:10:26 Test Item Value Reference Range Interpretation Comments Mode Art (test code = A/C (02/26/2013 N Mode Art) 05:10:26) [facility] HospitalSsdcwuzPADBTKDGW6133-05-06 10:10:26 Test Item Value Reference Range Interpretation Comments Vt Art (test code = Vt Art) 400 [facility] HospitalRtngcscTSUOGXYVZ2120-30-49 10:10:26 Test Item Value Reference Range Interpretation Comments pH Art (test code = pH Art) 7.46 7.35-7.45 H [facility] HospitalEtxsqxxFAHTBBBVY6416-34-16 10:10:26 Test Item Value Reference Range Interpretation Comments pCO2 Art (test code = pCO2 Art) 32 35-45 L [facility] HospitalEzjejikFOVCQZRDO1028-81-78 10:10:26 Test Item Value Reference Range Interpretation Comments pO2 Art (test code = pO2 Art) 96 80-100 N [facility] HospitalMjgnoarZKQWYAUTA3589-86-48 10:10:26 Test Item Value Reference Range Interpretation Comments FiO2 Art (test code = FiO2 Art) 40.0 [facility] HospitalAelrttaQMNQAHVMS6788-85-07 10:10:26 Test Item Value Reference Range Interpretation Comments PEEP Art (test code = PEEP Art) 10.0 [facility] HospitalFhycmfwDDHRYWIKM5839-02-70 10:10:26 Test Item Value Reference Range Interpretation Comments BE Art (test code = 0 See_Comment N [Automa matteo message] The BE Art) system which ge nerated this result transmit matteo reference range : <=2. The reference range was not used to interpr et this result as miesha l/abnormal. [facility] HospitalYyzdumuZCAQLJTIC8327-62-48 10:10:26 Test Item Value Reference Range Interpretation Comments HCO3 Art (test code = HCO3 Art) 23 22-26 N [facility] HospitalVjulgjlSZETRWHWT0201-61-00 10:10:26 Test Item Value Reference Range Interpretation Comments Temp Art (test code = Temp Art) 37.0 [facility] HospitalPqibjurXHCSCKIOX5417-49-95 10:10:26 Test Item Value Reference Range Interpretation Comments O2 Sat Art (test code = O2 Sat Art) 97.8 95.0-100.0 N [facility] HospitalRuvlgwzIJZYSCHJD0865-76-66 10:10:26 Test Item Value Reference Range Interpretation Comments Site Art (test code = A Line (02/26/2013 N Site Art) 05:10:26) [facility] HospitalYyaapibFRLJJTEOE1675-97-71 10:10:26 Test Item Value Reference Range Interpretation Comments Rate Art (test code = Rate Art) 12 [facility] HospitalTjpoanqVZICJRMFE0223-58-33 10:10:26 Test Item Value Reference Range Interpretation Comments Mode Art (test code = A/C (02/26/2013 N Mode Art) 05:10:26) [facility] HospitalLnmmtmaEDYGWOGOZ8355-33-92 10:10:26 Test Item Value Reference Range Interpretation Comments Vt Art (test code = Vt Art) 400 [facility] HospitalKjewkuoYSIYVWMJE4764-93-91 10:10:26 Test Item Value Reference Range Interpretation Comments pH Art (test code = pH Art) 7.46 7.35-7.45 H [facility] HospitalNpjvunpJBUFSNHRH9396-15-80 10:10:26 Test Item Value Reference Range Interpretation Comments pCO2 Art (test code = pCO2 Art) 32 35-45 L [facility] HospitalFheuoasZTWSDWSJJ6603-04-09 10:10:26 Test Item Value Reference Range Interpretation Comments pO2 Art (test code = pO2 Art) 96 80-100 N [facility] HospitalUxiwpopCRNARHLKY1414-01-25 10:10:26 Test Item Value Reference Range Interpretation Comments FiO2 Art (test code = FiO2 Art) 40.0 [facility] HospitalExynnuwGCOJQCPPU0593-94-54 10:10:26 Test Item Value Reference Range Interpretation Comments PEEP Art (test code = PEEP Art) 10.0 [facility] HospitalEwomsqkEYZNYWAFV2181-43-07 10:00:55 Test Item Value Reference Range Interpretation Comments Vanco Lvl (test code = Vanco Lvl) 33.3 [facility] HospitalYkbcmpsWTLNTTGPH2353-54-28 10:00:55 Test Item Value Reference Range Interpretation Comments Vanco Lvl (test code = Vanco Lvl) 33.3 [facility] HospitalIpczjezETDPBQLAM8422-03-74 10:00:34 Test Item Value Reference Range Interpretation Comments eGFR (test code = eGFR) 61 [facility] HospitalNuqqrohLJLOPXVKN0906-05-42 10:00:34 Test Item Value Reference Range Interpretation Comments Calcium Lvl (test code = Calcium Lvl) 9.1 8.5-10.5 N [facility] HospitalRnxahdyINLIXMNIW0128-82-63 10:00:34 Test Item Value Reference Range Interpretation Comments Sodium Lvl (test code = Sodium Lvl) 147 135-145 H [facility] HospitalCqjxpctBFSTCDOLX9584-88-27 10:00:34 Test Item Value Reference Range Interpretation Comments Potassium Lvl (test code = Potassium 3.7 3.5-5.1 N Lvl) [facility] HospitalOzcoejvOTDXMTWPS0192-73-84 10:00:34 Test Item Value Reference Range Interpretation Comments Chloride Lvl (test code = Chloride Lvl) 113 95-109 H [facility] HospitalMinmfdwHDIKJPGHI1280-55-50 10:00:34 Test Item Value Reference Range Interpretation Comments CO2 (test code = CO2) 24 24-32 N [facility] HospitalFtsyqntPZKIHGLKX4257-35-87 10:00:34 Test Item Value Reference Range Interpretation Comments Glucose Lvl (test code = Glucose Lvl) 136 70-99 H [facility] HospitalTpzewulKFAUAXOXM2201-01-22 10:00:34 Test Item Value Reference Range Interpretation Comments BUN (test code = BUN) 25 7-22 H [facility] HospitalVhlxnowOSLDQUKHN4652-87-40 10:00:34 Test Item Value Reference Range Interpretation Comments Creatinine Lvl (test code = Creatinine 1.0 0.5-1.4 N Lvl) [facility] HospitalJgefktyHUKRNMEAO0632-08-46 10:00:34 Test Item Value Reference Range Interpretation Comments AGAP (test code = AGAP) 13.7 10.0-20.0 N [facility] HospitalDcsegseXQATONSTT3601-43-91 10:00:34 Test Item Value Reference Range Interpretation Comments Ca Norm WB (test code = Ca Norm WB) 1.22 1.05-1.25 N [facility] HospitalKyyfgfaHEEIZPYIZ5221-45-15 10:00:34 Test Item Value Reference Range Interpretation Comments Ca Ion WB (test code = Ca Ion WB) 1.20 1.05-1.25 N [facility] HospitalMjpgbqkFIQMFQHGN2851-82-12 10:00:34 Test Item Value Reference Range Interpretation Comments eGFR (test code = eGFR) 61 [facility] HospitalNyeiqcnVXNKEBDHG6817-24-32 10:00:34 Test Item Value Reference Range Interpretation Comments Calcium Lvl (test code = Calcium Lvl) 9.1 8.5-10.5 N [facility] HospitalUzddwgnBBYNJDGWD4444-55-43 10:00:34 Test Item Value Reference Range Interpretation Comments Sodium Lvl (test code = Sodium Lvl) 147 135-145 H [facility] HospitalJskzxtaUXDSQOEXL8248-84-70 10:00:34 Test Item Value Reference Range Interpretation Comments Potassium Lvl (test code = Potassium 3.7 3.5-5.1 N Lvl) [facility] HospitalArjukcsZJGNGPPII0296-21-14 10:00:34 Test Item Value Reference Range Interpretation Comments Chloride Lvl (test code = Chloride Lvl) 113 95-109 H [facility] HospitalXmqmfnrRZNDOYAER1312-95-65 10:00:34 Test Item Value Reference Range Interpretation Comments CO2 (test code = CO2) 24 24-32 N [facility] HospitalUmyifkePYXASXZLU9214-73-55 10:00:34 Test Item Value Reference Range Interpretation Comments Glucose Lvl (test code = Glucose Lvl) 136 70-99 H [facility] HospitalDzsgzcgZBSBBSLRG5653-84-28 10:00:34 Test Item Value Reference Range Interpretation Comments BUN (test code = BUN) 25 7-22 H [facility] HospitalUylvvxkHDMHOEZES0259-38-27 10:00:34 Test Item Value Reference Range Interpretation Comments Creatinine Lvl (test code = Creatinine 1.0 0.5-1.4 N Lvl) [facility] HospitalWleuyisFBWNSCQPA0762-51-51 10:00:34 Test Item Value Reference Range Interpretation Comments AGAP (test code = AGAP) 13.7 10.0-20.0 N [facility] HospitalUwdkudeHEPVRCPCF8250-24-36 10:00:34 Test Item Value Reference Range Interpretation Comments Ca Norm WB (test code = Ca Norm WB) 1.22 1.05-1.25 N [facility] HospitalFzfcxxaTNCUNHMVG5510-50-31 10:00:34 Test Item Value Reference Range Interpretation Comments Ca Ion WB (test code = Ca Ion WB) 1.20 1.05-1.25 N [facility] AllianceUullkhbLSRBIYEKYY2652-47-84 10:00:00 Test Item Value Reference Range Interpretation Comments Atypical Lymphs (test code = Atypical 0.0 N Lymphs) [facility] AllianceCdhdsllDGPDUIXJVW9802-47-49 10:00:00 Test Item Value Reference Range Interpretation Comments NRBC (test code = NRBC) 1 [facility] AllianceJhxlqmsOTQKITFKFE2596-19-33 10:00:00 Test Item Value Reference Range Interpretation Comments Myelocytes (test code = Myelocytes) 2.0 H [facility] AllianceGaamgykVMJQXVNCQR0912-35-94 10:00:00 Test Item Value Reference Range Interpretation Comments Lymphocytes (test code = Lymphocytes) 13.0 20.0-40.0 L [facility] AllianceZaagyelLHFQXWTXIP6156-25-19 10:00:00 Test Item Value Reference Range Interpretation Comments Monocytes (test code = Monocytes) 0.0 2.0-12.0 L [facility] AllianceQxowrmhUZZPINSEOC2340-06-55 10:00:00 Test Item Value Reference Range Interpretation Comments Elliptocyte (test code = Slight A Elliptocyte) *ABN*(02/26/2013 05:00:00) [facility] AllianceUzymaejRQQWFETKMR7786-80-91 10:00:00 Test Item Value Reference Range Interpretation Comments Large Plt (test code = Slight *ABN*(02/26/2013 A Large Plt) 05:00:00) [facility] AllianceUpppvywTUZUBHGICG6572-37-87 10:00:00 Test Item Value Reference Range Interpretation Comments Tot Cell Ct (test code = Tot Cell Ct) 100 1 [facility] AllianceTjdjqwoZHRXWQDTKR9716-82-65 10:00:00 Test Item Value Reference Range Interpretation Comments Anisocyte (test code = 1+ *ABN*(02/26/2013 A Anisocyte) 05:00:00) [facility] AllianceKsjcereGQVMPFXCMI9209-84-78 10:00:00 Test Item Value Reference Range Interpretation Comments Polychrom (test code = Slight (02/26/2013 N Polychrom) 05:00:00) [facility] AllianceWfnlsyzWXFGKXQDIN8821-34-84 10:00:00 Test Item Value Reference Range Interpretation Comments Segs-Bands # (test code = Segs-Bands #) 10.5 1.5-8.1 H [facility] AllianceJhwolsbQPLDEMHMXP7101-77-51 10:00:00 Test Item Value Reference Range Interpretation Comments Lymphocytes # (test code = Lymphocytes 1.6 1.0-5.5 N #) [facility] AllianceOlesmfnEGKOHGWPGA8843-22-32 10:00:00 Test Item Value Reference Range Interpretation Comments Monocytes # (test code 0.0 See_Comment N [Aut omated message] The = Monocytes #) system which generated this result tra nsmitted reference range : <=0.8. The reference r katie was not used to int erpret this result as normal/abnormal . [facility] AllianceGkhrmlkZTWPMEEJGS7482-39-44 10:00:00 Test Item Value Reference Range Interpretation Comments Bands (test code = 7.0 See_Comment N [Automat ed message] The Bands) system which ge nerated this result transmit matteo reference range : <=11.0. The reference r katie was not used to interpr et this result as miesha l/abnormal. [facility] AllianceLalshseBOHBIEWIRB2585-64-51 10:00:00 Test Item Value Reference Range Interpretation Comments Segs (test code = Segs) 78.0 45.0-75.0 H [facility] AllianceUewsdraKPTPWRTBJS8330-11-62 10:00:00 Test Item Value Reference Range Interpretation Comments RDW (test code = RDW) 17.6 11.5-14.5 H [facility] AllianceEdvwpkqMDZLMWMPJA4843-12-37 10:00:00 Test Item Value Reference Range Interpretation Comments MCHC (test code = MCHC) 35.0 32.0-36.0 N [facility] AllianceMubnmccNWQVDDSOGF3247-83-13 10:00:00 Test Item Value Reference Range Interpretation Comments MCH (test code = MCH) 32.2 pg 27.0-31.0 H [facility] AllianceZsydiwlCROIWQRMBC9318-43-28 10:00:00 Test Item Value Reference Range Interpretation Comments Hct (test code = Hct) 27.4 36.0-48.0 L [facility] AllianceTintlgiHAZRFUYEYJ7341-35-25 10:00:00 Test Item Value Reference Range Interpretation Comments Hgb (test code = Hgb) 9.6 12.0-16.0 L [facility] AllianceRootbqtLUUKBDSGJM5758-47-19 10:00:00 Test Item Value Reference Range Interpretation Comments MCV (test code = MCV) 91.8 81.0-99.0 N [facility] AllianceRxdtmlvTJYBMRLUSH9964-52-69 10:00:00 Test Item Value Reference Range Interpretation Comments WBC (test code = WBC) 12.4 3.7-10.4 H [facility] AllianceTwmysmjOQNZDGIYFL8789-65-54 10:00:00 Test Item Value Reference Range Interpretation Comments RBC (test code = RBC) 2.98 4.20-5.40 L [facility] AllianceBxuqwqfUUSBRXPPOM7201-85-04 10:00:00 Test Item Value Reference Range Interpretation Comments MPV (test code = MPV) 7.1 7.4-10.4 L [facility] AllianceTxvspyiKKMKNCYMWC3443-13-53 10:00:00 Test Item Value Reference Range Interpretation Comments Platelet (test code = Platelet) 221 133-450 N [facility] AllianceEulhpsaUXCSUPXVBW3039-57-65 10:00:00 Test Item Value Reference Range Interpretation Comments Atypical Lymphs (test code = Atypical 0.0 N Lymphs) [facility] AllianceTmxnssgGAPARZHVZL5559-04-16 10:00:00 Test Item Value Reference Range Interpretation Comments NRBC (test code = NRBC) 1 [facility] AllianceJwymgnbFSJJELKXZM3489-76-15 10:00:00 Test Item Value Reference Range Interpretation Comments Myelocytes (test code = Myelocytes) 2.0 H [facility] AllianceGlchjpcVEBECKZYGG3173-94-80 10:00:00 Test Item Value Reference Range Interpretation Comments Lymphocytes (test code = Lymphocytes) 13.0 20.0-40.0 L [facility] AllianceRqdsoyoOOJOARJXGN7574-81-80 10:00:00 Test Item Value Reference Range Interpretation Comments Monocytes (test code = Monocytes) 0.0 2.0-12.0 L [facility] AlliancePbeyjsxBFPVGGNLXC2845-72-75 10:00:00 Test Item Value Reference Range Interpretation Comments Elliptocyte (test code = Slight A Elliptocyte) *ABN*(02/26/2013 05:00:00) [facility] AllianceDrbqvivPNDJNMAKJA8575-08-37 10:00:00 Test Item Value Reference Range Interpretation Comments Large Plt (test code = Slight *ABN*(02/26/2013 A Large Plt) 05:00:00) [facility] AllianceMeruujqJKQFQWTEGS6084-08-21 10:00:00 Test Item Value Reference Range Interpretation Comments Tot Cell Ct (test code = Tot Cell Ct) 100 1 [facility] AllianceEpwjfqyIDRVPEHXHL9806-00-78 10:00:00 Test Item Value Reference Range Interpretation Comments Anisocyte (test code = 1+ *ABN*(02/26/2013 A Anisocyte) 05:00:00) [facility] AllianceSucxtoiQFMYGNZUBC0375-26-12 10:00:00 Test Item Value Reference Range Interpretation Comments Polychrom (test code = Slight (02/26/2013 N Polychrom) 05:00:00) [facility] AllianceBzxgxvjUZUFGNJVRV1550-92-51 10:00:00 Test Item Value Reference Range Interpretation Comments Segs-Bands # (test code = Segs-Bands #) 10.5 1.5-8.1 H [facility] AllianceRycvpejBCCWSRDFFH7773-83-69 10:00:00 Test Item Value Reference Range Interpretation Comments Lymphocytes # (test code = Lymphocytes 1.6 1.0-5.5 N #) [facility] AllianceRpoioelYJPZDONEQZ7876-67-27 10:00:00 Test Item Value Reference Range Interpretation Comments Monocytes # (test code 0.0 See_Comment N [Aut omated message] The = Monocytes #) system which generated this result tra nsmitted reference range : <=0.8. The reference r katie was not used to int erpret this result as normal/abnormal . [facility] AlliancePcekpfzXYAKRZLJXP7792-24-31 10:00:00 Test Item Value Reference Range Interpretation Comments Bands (test code = 7.0 See_Comment N [Automat ed message] The Bands) system which ge nerated this result transmit matteo reference range : <=11.0. The reference r katie was not used to interpr et this result as miesha l/abnormal. [facility] AllianceBqqabguVJCGHOUBGH1951-21-79 10:00:00 Test Item Value Reference Range Interpretation Comments Segs (test code = Segs) 78.0 45.0-75.0 H [facility] AllianceNucvomkXNNLXTKCHU8365-71-79 10:00:00 Test Item Value Reference Range Interpretation Comments RDW (test code = RDW) 17.6 11.5-14.5 H [facility] AlliancePowonqtARPMOYADOL9036-45-18 10:00:00 Test Item Value Reference Range Interpretation Comments MCHC (test code = MCHC) 35.0 32.0-36.0 N [facility] AllianceCcyvjgsCAEAAKUVPD9228-98-51 10:00:00 Test Item Value Reference Range Interpretation Comments MCH (test code = MCH) 32.2 pg 27.0-31.0 H [facility] AllianceOgtztahOKBIAMJZDQ5692-86-62 10:00:00 Test Item Value Reference Range Interpretation Comments Hct (test code = Hct) 27.4 36.0-48.0 L [facility] AllianceQshqdxfSEWTASJMVA2598-98-33 10:00:00 Test Item Value Reference Range Interpretation Comments Hgb (test code = Hgb) 9.6 12.0-16.0 L [facility] AllianceGxwetpnTPBOCNEEZT2017-40-67 10:00:00 Test Item Value Reference Range Interpretation Comments MCV (test code = MCV) 91.8 81.0-99.0 N [facility] AllianceThamymoUDWGLJRSYM5803-30-68 10:00:00 Test Item Value Reference Range Interpretation Comments WBC (test code = WBC) 12.4 3.7-10.4 H [facility] AllianceNpzgmvzBUKJCUJJCI1495-85-29 10:00:00 Test Item Value Reference Range Interpretation Comments RBC (test code = RBC) 2.98 4.20-5.40 L [facility] AllianceMfinidqKAJUHNZAFY9821-88-16 10:00:00 Test Item Value Reference Range Interpretation Comments MPV (test code = MPV) 7.1 7.4-10.4 L [facility] AllianceSjjpbrzEVHCVDAYYG2360-49-55 10:00:00 Test Item Value Reference Range Interpretation Comments Platelet (test code = Platelet) 221 133-450 N [facility]WqdsylbIKPZLYURZ6760-13-46 20:11:00 Test Item Value Reference Range Interpretation Comments Vanco Tr TND (test code = Vanco Tr TND) 1:00 [facility] HospitalEjfheeeFKTRQFOSK6818-95-33 20:11:00 Test Item Value Reference Range Interpretation Comments Vanco Tr (test code = Vanco Tr) 20.1 [facility] HospitalIkybydcNYBPKPOHN3221-46-28 20:11:00 Test Item Value Reference Range Interpretation Comments Vanco Tr TND (test code = Vanco Tr TND) 1:00 [facility] HospitalQacvdlfSMEKWOPPU4748-85-57 20:11:00 Test Item Value Reference Range Interpretation Comments Vanco Tr (test code = Vanco Tr) 20.1 [facility] HospitalHmfeekoQJAZEGKHR2785-65-44 19:00:00 Test Item Value Reference Range Interpretation Comments Ca Norm WB (test code = Ca Norm WB) 1.14 1.05-1.25 N [facility] HospitalRrzgmxqVKSAKKTGY5532-52-92 19:00:00 Test Item Value Reference Range Interpretation Comments Ca Ion WB (test code = Ca Ion WB) 1.10 1.05-1.25 N [facility] HospitalVyekikzJOSQQIIXF9407-69-50 19:00:00 Test Item Value Reference Range Interpretation Comments Ca Norm WB (test code = Ca Norm WB) 1.14 1.05-1.25 N [facility] HospitalHeoiulnIIWVCYUWS8120-29-07 19:00:00 Test Item Value Reference Range Interpretation Comments Ca Ion WB (test code = Ca Ion WB) 1.10 1.05-1.25 N [facility] HospitalBgubgthINRVZTNVW4295-15-34 14:10:18 Test Item Value Reference Range Interpretation Comments Mode Art (test code = A/C (02/25/2013 N Mode Art) 09:10:18) [facility] HospitalFrvwxsgPBKFFNTDZ9252-97-62 14:10:18 Test Item Value Reference Range Interpretation Comments Allens Art (test code = N/A (02/25/2013 N Allens Art) 09:10:18) [facility] HospitalUidmbkzUSPCMLTJM3170-72-39 14:10:18 Test Item Value Reference Range Interpretation Comments Temp Art (test code = Temp Art) 37.0 [facility] HospitalSwdglkxSKOLKVJNI3436-02-29 14:10:18 Test Item Value Reference Range Interpretation Comments Site Art (test code = A Line (02/25/2013 N Site Art) 09:10:18) [facility] HospitalVuejwujCCYDGGFQI7049-84-22 14:10:18 Test Item Value Reference Range Interpretation Comments O2 Sat Art (test code = O2 Sat Art) 94.6 95.0-100.0 L [facility] HospitalIagcivyMKRFSUYNH6096-67-59 14:10:18 Test Item Value Reference Range Interpretation Comments BE Art (test code = 0 See_Comment N [Automa matteo message] The BE Art) system which ge nerated this result transmit matteo reference range : <=2. The reference range was not used to interpr et this result as miesha l/abnormal. [facility] HospitalMfoyrsbXGITSZJKN0324-11-35 14:10:18 Test Item Value Reference Range Interpretation Comments HCO3 Art (test code = HCO3 Art) 23 22-26 N [facility] HospitalThfehttRUXOVONZD6977-82-76 14:10:18 Test Item Value Reference Range Interpretation Comments pO2 Art (test code = pO2 Art) 67 80-100 L [facility] HospitalWvgkucsDESTLYQEQ7809-82-61 14:10:18 Test Item Value Reference Range Interpretation Comments pCO2 Art (test code = pCO2 Art) 30 35-45 A [facility] HospitalUsvhvwdJEEVUEJRY7293-67-85 14:10:18 Test Item Value Reference Range Interpretation Comments pH Art (test code = pH Art) 7.49 7.35-7.45 H [facility] HospitalBlvfvqhQSFWHWOHX0735-05-03 14:10:18 Test Item Value Reference Range Interpretation Comments PEEP Art (test code = PEEP Art) 10.0 [facility] HospitalIdwoswzTGFIBRRCN2167-15-52 14:10:18 Test Item Value Reference Range Interpretation Comments FiO2 Art (test code = FiO2 Art) 40.0 [facility] HospitalJjlhwckMMTHEXHEA8196-62-80 14:10:18 Test Item Value Reference Range Interpretation Comments Rate Art (test code = Rate Art) 12 [facility] HospitalPkovlztUNEAIAEPM4707-13-50 14:10:18 Test Item Value Reference Range Interpretation Comments Vt Art (test code = Vt Art) 400 [facility] HospitalMdlfmqrOGDUVHMGJ4222-95-87 14:10:18 Test Item Value Reference Range Interpretation Comments Mode Art (test code = A/C (02/25/2013 N Mode Art) 09:10:18) [facility] HospitalRwvoengJNFXQTGKG2709-11-72 14:10:18 Test Item Value Reference Range Interpretation Comments Allens Art (test code = N/A (02/25/2013 N Allens Art) 09:10:18) [facility] HospitalWqgrysyKBDOXPKEL3138-28-24 14:10:18 Test Item Value Reference Range Interpretation Comments Temp Art (test code = Temp Art) 37.0 [facility] HospitalNsejqvhMCMAKRRNT2019-28-80 14:10:18 Test Item Value Reference Range Interpretation Comments Site Art (test code = A Line (02/25/2013 N Site Art) 09:10:18) [facility] HospitalUakrzlqZZJMUYXHJ3871-35-51 14:10:18 Test Item Value Reference Range Interpretation Comments O2 Sat Art (test code = O2 Sat Art) 94.6 95.0-100.0 L [facility] HospitalGczmlhcDCPSTLHJE5590-67-13 14:10:18 Test Item Value Reference Range Interpretation Comments BE Art (test code = 0 See_Comment N [Automa matteo message] The BE Art) system which ge nerated this result transmit matteo reference range : <=2. The reference range was not used to interpr et this result as miesha l/abnormal. [facility] HospitalGyzhplbZVVVVPMLU0244-20-91 14:10:18 Test Item Value Reference Range Interpretation Comments HCO3 Art (test code = HCO3 Art) 23 22-[address] [facility] CenterYeqqkouCTGTSMHDI0475-04-76 14:10:18 Test Item Value Reference Range Interpretation Comments pO2 Art (test code = pO2 Art) 67 80-100 [facility]BmmwwvjAZJQCTJXD7780-85-88 14:10:18 Test Item Value Reference Range Interpretation Comments pCO2 Art (test code = pCO2 Art) 30 35-[address] [address] [facility] CenterAzptcbnCVRODDKFW3868-16-24 14:10:18 Test Item Value Reference Range Interpretation Comments pH Art (test code = pH Art) 7.49 7.35-7.[address] [facility] CenterEtvchgaEIEGJDOHN7540-52-46 14:10:18 Test Item Value Reference Range Interpretation Comments PEEP Art (test code = PEEP Art) 10.0 [facility] CenterXbwpqkvFWCHIUTCV5219-05-48 14:10:18 Test Item Value Reference Range Interpretation Comments FiO2 Art (test code = FiO2 Art) 40.0 [facility] CenterPvuaisbLXVVWDMJR2086-86-08 14:10:18 Test Item Value Reference Range Interpretation Comments Rate Art (test code = Rate Art) 12 [facility] CenterOccfneuVENSNCKAN7507-42-06 14:10:18 Test Item Value Reference Range Interpretation Comments Vt Art (test code = Vt Art) 400 [facility] [employer] NHLKPZI0889-35-87 12:55:00 Test Item Value Reference Range Interpretation Comments Antibody Scrn (test Negative (02/25/2013 N code = Antibody Scrn) 07:55:00) [facility] [employer] PTLHSKF5695-98-21 12:55:00 Test Item Value Reference Range Interpretation Comments ABO/Rh (test code = ABO/Rh) A POS [facility] [employer] [id number] 12:55:00 Test Item Value Reference Range Interpretation Comments Antibody Scrn (test Negative (02/25/2013 N code = Antibody Scrn) 07:55:00) [facility] [employer] LVNZJZS9620-15-40 12:55:00 Test Item Value Reference Range Interpretation Comments ABO/Rh (test code = ABO/Rh) A POS [facility] [employer] [id number] 12:16:00 Test Item Value Reference Range Interpretation Comments RBC product (test code Product available N = RBC product) (02/25/2013 07:16:00) [facility] IBQEBKZ5913-39-25 12:16:00 Test Item Value Reference Range Interpretation Comments RBC product (test code Product available N = RBC product) (02/25/2013 07:16:00) [facility] AllianceClcfsgdHZWLWCIYBH1295-94-34 09:30:00 Test Item Value Reference Range Interpretation Comments Eosinophils (test code = 0.4 See_Comment N [A utomated message] The Eosinophils) system which ge nerated this result tra nsmitted reference range : <=4.0. The reference r katie was not used to int erpret this result as normal/abnormal . [facility] AlliancePpocsjoMAYXBDKIVX7768-99-44 09:30:00 Test Item Value Reference Range Interpretation Comments Basophils (test code = 0.3 See_Comment N [Aut omated message] The Basophils) system which ge nerated this result tra nsmitted reference range : <=1.0. The reference r katie was not used to int erpret this result as normal/abnormal . [facility] AllianceMtiypoiNHXBLCZSNH1953-71-56 09:30:00 Test Item Value Reference Range Interpretation Comments Eosinophils (test code = 0.4 See_Comment N [A utomated message] The Eosinophils) system which ge nerated this result tra nsmitted reference range : <=4.0. The reference r katie was not used to int erpret this result as normal/abnormal . [facility] AllianceBdnmohhJUNREYZKFW2238-09-26 09:30:00 Test Item Value Reference Range Interpretation Comments Basophils (test code = 0.3 See_Comment N [Aut omated message] The Basophils) system which ge nerated this result tra nsmitted reference range : <=1.0. The reference r katie was not used to int erpret this result as normal/abnormal . [facility] HospitalNpoqxkuVCGWDZBPA2475-67-61 19:56:06 Test Item Value Reference Range Interpretation Comments Rate Art (test code = Rate Art) 12 [facility] HospitalEytgjvsWAUZMXSJK5987-91-17 19:56:06 Test Item Value Reference Range Interpretation Comments Vt Art (test code = Vt Art) 400 [facility] HospitalNivkdckTRJOAMODP8072-34-96 19:56:06 Test Item Value Reference Range Interpretation Comments Rate Art (test code = Rate Art) 12 [facility] HospitalLxjmixlIVAHBJFGU3590-50-57 19:56:06 Test Item Value Reference Range Interpretation Comments Vt Art (test code = Vt Art) 400 [facility] HospitalQenmwlnSBSUQFLGF9407-32-09 18:00:00 Test Item Value Reference Range Interpretation Comments Phosphorus (test code = Phosphorus) 3.2 2.5-4.5 N [facility] HospitalBpuzizpSVNJTKAEG6699-00-60 18:00:00 Test Item Value Reference Range Interpretation Comments Phosphorus (test code = Phosphorus) 3.2 2.5-4.5 N [facility] AllianceMxhmvpcPLQUAUOTOK5270-95-83 08:30:29 Test Item Value Reference Range Interpretation Comments Plav Effect Plt (test code = Plav 232 Effect Plt) [facility] AllianceJrwuletOURLNLOVNR7042-05-91 08:30:29 Test Item Value Reference Range Interpretation Comments Plav Effect Plt (test code = Plav 232 Effect Plt) [facility] HospitalMdkqoogTMBJRBOGZ1095-79-00 07:55:00 Test Item Value Reference Range Interpretation Comments CK MB Index (test 0.6 See_Comment N [Automate d message] The code = CK MB Index) system w [facility] generated this result transmit matteo reference range : <=2.5. The reference range was not used to interpr et this result as miesha l/abnormal. [facility] HospitalEzcakoiCNNRZFKDG5048-86-75 07:55:00 Test Item Value Reference Range Interpretation Comments Ca Norm WB (test code = Ca Norm WB) 0.99 1.05-1.25 L [facility] HospitalYnveukcABSBVQGFK1361-85-26 07:55:00 Test Item Value Reference Range Interpretation Comments Ca Ion WB (test code = Ca Ion WB) 0.97 1.05-1.25 L [facility] HospitalXsybwniCMMLLGOWP7962-89-07 07:55:00 Test Item Value Reference Range Interpretation Comments Magnesium Lvl (test code = Magnesium 2.1 1.8-2.4 N Lvl) [facility] HospitalEiukffeCLECPEEFF0829-08-62 07:55:00 Test Item Value Reference Range Interpretation Comments Phosphorus (test code = Phosphorus) 1.4 2.5-4.5 A [facility] HospitalKlonywbYBLBTCHCA8086-27-61 07:55:00 Test Item Value Reference Range Interpretation Comments CK MB (test code = CK MB) 6.0 0.5-3.6 H [facility] HospitalUqzmsoaAZMGIDHPQ1940-96-15 07:55:00 Test Item Value Reference Range Interpretation Comments Total CK (test code = Total CK) 960 12-191 H [facility] HospitalAfuqyecRVLEHYWBP7006-27-40 07:55:00 Test Item Value Reference Range Interpretation Comments Troponin-I (test code 1.11 See_Comment A [Auto mated message] The = Troponin-I) system which g enerated this result transmit matteo reference range : <=0.40. The reference r katie was not used to interpr et this result as miesha l/abnormal. [facility] AllianceAajqywcPODLDFBMMO1330-11-85 07:55:00 Test Item Value Reference Range Interpretation Comments Basophils (test code = 0.1 See_Comment N [Aut omated message] The Basophils) system which ge nerated this result tra nsmitted reference range : <=1.0. The reference r katie was not used to int erpret this result as normal/abnormal . [facility] AllianceCmdicjsWDPPFFRTOD1308-98-70 07:55:00 Test Item Value Reference Range Interpretation Comments Eosinophils (test code = 0.1 See_Comment N [A utomated message] The Eosinophils) system which ge nerated this result tra nsmitted reference range : <=4.0. The reference r katie was not used to int erpret this result as normal/abnormal . [facility] AllianceVkvsnpxWPGDBBTUED7358-63-32 07:55:00 Test Item Value Reference Range Interpretation Comments Eosinophils # (test code 0.0 See_Comment N [A utomated message] The = Eosinophils #) system whic h generated this result tra nsmitted reference range : <=0.5. The reference r katie was not used to int erpret this result as normal/abnormal . [facility] AllianceQyqkvrsKCHHSDMNTQ6259-74-14 07:55:00 Test Item Value Reference Range Interpretation Comments Basophils # (test code 0.0 See_Comment N [Aut omated message] The = Basophils #) system which generated this result tra nsmitted reference range : <=0.2. The reference r katie was not used to int erpret this result as normal/abnormal . [facility] AllianceVdqkegpNXMSYNSZKU0739-16-81 07:55:00 Test Item Value Reference Range Interpretation Comments INR (test code = INR) 1.38 0.85-1.17 H [facility] AllianceZgshyseLQVXXLVRSK0113-82-88 07:55:00 Test Item Value Reference Range Interpretation Comments PT (test code = PT) 16.8 s 12.0-14.7 H [facility] AllianceSpcldfsJUMTELFNEQ9896-37-71 07:55:00 Test Item Value Reference Range Interpretation Comments PTT (test code = PTT) 35.5 s 22.9-35.8 N [facility] HospitalHveansjSWWFLXRBP3489-29-74 07:55:00 Test Item Value Reference Range Interpretation Comments CK MB Index (test 0.6 See_Comment N [Automate d message] The code = CK MB Index) system w [facility] generated this result transmit matteo reference range : <=2.5. The reference range was not used to interpr et this result as miesha l/abnormal. [facility] HospitalZybkwyvQSKYJXZUV4733-83-68 07:55:00 Test Item Value Reference Range Interpretation Comments Ca Norm WB (test code = Ca Norm WB) 0.99 1.05-1.25 L [facility] HospitalWrxagynDISBQSGIT5419-05-26 07:55:00 Test Item Value Reference Range Interpretation Comments Ca Ion WB (test code = Ca Ion WB) 0.97 1.05-1.25 L [facility] HospitalEvizpjoLRTJCASBQ8148-84-13 07:55:00 Test Item Value Reference Range Interpretation Comments Magnesium Lvl (test code = Magnesium 2.1 1.8-2.4 N Lvl) [facility] HospitalRfdhdesBMHWDGTSL7662-84-43 07:55:00 Test Item Value Reference Range Interpretation Comments Phosphorus (test code = Phosphorus) 1.4 2.5-4.5 A [facility] HospitalXqkautqTQKPKKMWI1233-06-56 07:55:00 Test Item Value Reference Range Interpretation Comments CK MB (test code = CK MB) 6.0 0.5-3.6 H [facility] HospitalJpvsuxrBZIVTKVQT5986-77-52 07:55:00 Test Item Value Reference Range Interpretation Comments Total CK (test code = Total CK) 960 12-191 H [facility] HospitalBofwtgrIYDCBMTRI5380-91-11 07:55:00 Test Item Value Reference Range Interpretation Comments Troponin-I (test code 1.11 See_Comment A [Auto mated message] The = Troponin-I) system which g enerated this result transmit matteo reference range : <=0.40. The reference r katie was not used to interpr et this result as miesha l/abnormal. [facility] AllianceMdadsohJSLNQFFFSE9711-17-49 07:55:00 Test Item Value Reference Range Interpretation Comments Basophils (test code = 0.1 See_Comment N [Aut omated message] The Basophils) system which ge nerated this result tra nsmitted reference range : <=1.0. The reference r katie was not used to int erpret this result as normal/abnormal . [facility] AllianceBedjbudPWYJWWBZGJ7318-15-75 07:55:00 Test Item Value Reference Range Interpretation Comments Eosinophils (test code = 0.1 See_Comment N [A utomated message] The Eosinophils) system which ge nerated this result tra nsmitted reference range : <=4.0. The reference r katie was not used to int erpret this result as normal/abnormal . [facility] AllianceSbsdkzxZHQJVBNJRT1629-34-49 07:55:00 Test Item Value Reference Range Interpretation Comments Eosinophils # (test code 0.0 See_Comment N [A utomated message] The = Eosinophils #) system whic h generated this result tra nsmitted reference range : <=0.5. The reference r katie was not used to int erpret this result as normal/abnormal . [facility] AllianceHfzjjulLZRBJJLPAC6874-93-15 07:55:00 Test Item Value Reference Range Interpretation Comments Basophils # (test code 0.0 See_Comment N [Aut omated message] The = Basophils #) system which generated this result tra nsmitted reference range : <=0.2. The reference r katie was not used to int erpret this result as normal/abnormal . [facility] AllianceHoijmmlFAGVYUXNVC6067-20-65 07:55:00 Test Item Value Reference Range Interpretation Comments INR (test code = INR) 1.38 0.85-1.17 [facility]BjzqndbFWZMHDITLI2119-19-20 07:55:00 Test Item Value Reference Range Interpretation Comments PT (test code = PT) 16.8 s 12.0-14.7 H [facility] AllianceKrtsconLJTQZKAEEK6539-11-19 07:55:00 Test Item Value Reference Range Interpretation Comments PTT (test code = PTT) 35.5 s 22.9-35.8 N [facility] [employer] GBZYHAL0859-57-18 05:54:00 Test Item Value Reference Range Interpretation Comments RBC product (test code Product available N = RBC product) (02/24/2013 00:54:00) [facility] [employer] [id number] 05:54:00 Test Item Value Reference Range Interpretation Comments RBC product (test code Product available N = RBC product) (02/24/2013 00:54:00) [facility] AllianceGftjxndDWKZIJYFBA2908-92-37 01:45:00 Test Item Value Reference Range Interpretation Comments PTT (test code = PTT) 44.0 s 22.9-35.8 H [facility] AllianceFldvqrtHGMZQDHWOC0984-90-78 01:45:00 Test Item Value Reference Range Interpretation Comments INR (test code = INR) 1.34 0.85-1.17 H [facility] AllianceZqidickKRTJZITWLH8457-09-68 01:45:00 Test Item Value Reference Range Interpretation Comments PT (test code = PT) 16.4 s 12.0-14.7 H [facility] AllianceKihjttxPCOXZPHYOI4461-51-82 01:45:00 Test Item Value Reference Range Interpretation Comments PTT (test code = PTT) 44.0 s 22.9-35.8 H [facility] CenterWpzfnxbFKKNYIUSMD7691-16-45 01:45:00 Test Item Value Reference Range Interpretation Comments INR (test code = INR) 1.34 0.85-1.17 H [facility] CenterOxudilcKCEZJFIMEY4381-47-86 01:45:00 Test Item Value Reference Range Interpretation Comments PT (test code = PT) 16.4 s 12.0-14.7 H [facility] HospitalBwmqqnaBLUIUHDWM5222-57-23 18:10:00 Test Item Value Reference Range Interpretation Comments Vanco Tr (test code = Vanco Tr) 11.7 [facility] CenterMuuoyzmLOQMPKAWK8001-20-84 18:10:00 Test Item Value Reference Range Interpretation Comments Vanco Tr TND (test code = Vanco Tr TND) [facility]xfekrHZWBVGYXG9884-[facility]-66 18:10:00 Test Item Value Reference Range Interpretation Comments Vanco Tr (test code = Vanco Tr) 11.7 [facility] CenterFtjargdALHSTBDFA6307-07-55 18:10:00 Test Item Value Reference Range Interpretation Comments Vanco Tr TND (test code = Vanco Tr TND) [facility] [employer] CFTKNJN8712-27-95 18:07:00 Test Item Value Reference Range Interpretation Comments RBC product (test code Product available N = RBC product) (02/23/2013 13:07:00) [facility]ANK XMFJLFB8114-79-12 18:07:00 Test Item Value Reference Range Interpretation Comments RBC product (test code Product available N = RBC product) (02/23/2013 13:07:00) [facility] HospitalHsefbojMTMTWXFLT2396-75-30 10:45:19 Test Item Value Reference Range Interpretation Comments CK MB (test code = CK MB) 12.5 0.5-3.6 H [facility] HospitalSofxqbxFIDGKRPKE7399-98-32 10:45:19 Test Item Value Reference Range Interpretation Comments CK MB (test code = CK MB) 12.5 0.5-3.6 H [facility] HospitalMocodvuVGWATBJDY0809-00-94 10:45:00 Test Item Value Reference Range Interpretation Comments Troponin-I (test code 1.34 See_Comment A [Auto mated message] The = Troponin-I) system which g enerated this result transmit matteo reference range : <=0.40. The reference r katie was not used to interpr et this result as miesha l/abnormal. [facility] HospitalVhmeronAMNCMUDFR7816-45-40 10:45:00 Test Item Value Reference Range Interpretation Comments Total CK (test code = Total CK) 1727 12-191 H [facility] HospitalLudnxfgPLHFKFDAQ4112-37-38 10:45:00 Test Item Value Reference Range Interpretation Comments CK MB Index (test 0.7 See_Comment N [Automate d message] The code = CK MB Index) system w [facility] generated this result transmit matteo reference range : <=2.5. The reference range was not used to interpr et this result as miesha l/abnormal. [facility] HospitalLvexkcwKTJNPCHGX0861-34-63 10:45:00 Test Item Value Reference Range Interpretation Comments Troponin-I (test code 1.34 See_Comment A [Auto mated message] The = Troponin-I) system which g enerated this result transmit matteo reference range : <=0.40. The reference r katie was not used to interpr et this result as miesha l/abnormal. [facility] HospitalFynmmseBPHJSHGCL3784-08-17 10:45:00 Test Item Value Reference Range Interpretation Comments Total CK (test code = Total CK) 1727 12-191 H [facility] HospitalHktdjtxCUTXIFELB8736-13-53 10:45:00 Test Item Value Reference Range Interpretation Comments CK MB Index (test 0.7 See_Comment N [Automate d message] The code = CK MB Index) system w [facility] generated this result transmit matteo reference range : <=2.5. The reference range was not used to interpr et this result as miesha l/abnormal. [facility] [facility]ryMGEMYWEDG7464-39-11 09:00:00 Test Item Value Reference Range Interpretation Comments TSH (test code = TSH) 0.581 0.360-3.740 N [facility]RfdzyugDKROJRZDH8905-42-21 09:00:00 Test Item Value Reference Range Interpretation Comments Hgb A1C (test code = Hgb A1C) 5.0 N [facility] AlliancePmadretCWYNQHHZXW4072-25-29 09:00:00 Test Item Value Reference Range Interpretation Comments Basophils # (test code 0.0 See_Comment N [Aut omated message] The = Basophils #) system which generated this result tra nsmitted reference range : <=0.2. The reference r katie was not used to int erpret this result as normal/abnormal . [facility] AllianceGcvsxskPTOFEFBFKT3620-08-11 09:00:00 Test Item Value Reference Range Interpretation Comments Eosinophils # (test code 0.0 See_Comment N [A utomated message] The = Eosinophils #) system whic h generated this result tra nsmitted reference range : <=0.5. The reference r katie was not used to int erpret this result as normal/abnormal . [facility]ZisrauaRUAGIBIUX1975-[facility] 09:00:00 Test Item Value Reference Range Interpretation Comments TSH (test code = TSH) 0.581 0.360-3.740 N [facility] HospitalBpszvoqEPFCVNWQQ9632-23-34 09:00:00 Test Item Value Reference Range Interpretation Comments Hgb A1C (test code = Hgb A1C) 5.0 N [facility] AllianceHcsjcnqAJEAXQQGJA8811-53-24 09:00:00 Test Item Value Reference Range Interpretation Comments Basophils # (test code 0.0 See_Comment N [Aut omated message] The = Basophils #) system which generated this result tra nsmitted reference range : <=0.2. The reference r katie was not used to int erpret this result as normal/abnormal . [facility] AllianceCuipcpcXCASUICKXS1015-09-80 09:00:00 Test Item Value Reference Range Interpretation Comments Eosinophils # (test code 0.0 See_Comment N [A utomated message] The = Eosinophils #) system whic h generated this result tra nsmitted reference range : <=0.5. The reference r katie was not used to int erpret this result as normal/abnormal . [facility] CenterMqsdzheNRLQYCDOK4822-11-83 04:00:00 Test Item Value Reference Range Interpretation Comments Troponin-I (test code 2.07 See_Comment A [Auto mated message] The = Troponin-I) system which g enerated this result transmit matteo reference range : <=0.40. The reference r katie was not used to interpr et this result as miesha l/abnormal. [facility] CenterXldnziuDSLODFTLJ2141-48-75 04:00:00 Test Item Value Reference Range Interpretation Comments Total CK (test code = Total CK) 2251191 H [facility] HospitalFuribuwWUUBQXCQY2716-90-97 04:00:00 Test Item Value Reference Range Interpretation Comments Total CK (test code = Total CK) 2251191 H [facility] HospitalHfgfvbuGAMJVQIRP3608-38-95 04:00:00 Test Item Value Reference Range Interpretation Comments CK MB Index (test 0.9 See_Comment N [Automate d message] The code = CK MB Index) system w [facility] generated this result transmit matteo reference range : <=2.5. The reference range was not used to interpr et this result as miesha l/abnormal. [facility] CenterTkdwftfJOYAMEOHG6442-20-74 04:00:00 Test Item Value Reference Range Interpretation Comments CK MB (test code = CK MB) 20.3 0.5-3.6 H [facility] HospitalTimtqcuMIBQICNCX4929-57-98 04:00:00 Test Item Value Reference Range Interpretation Comments Troponin-I (test code 2.07 See_Comment A [Auto mated message] The = Troponin-I) system which g enerated this result transmit matteo reference range : <=0.40. The reference r katie was not used to interpr et this result as miesha l/abnormal. [facility] CenterZcblxbsDMSJAALJI4684-27-45 04:00:00 Test Item Value Reference Range Interpretation Comments Total CK (test code = Total CK) 2251191 H [facility] HospitalLwnhlnaAZSVGUAMR6790-23-89 04:00:00 Test Item Value Reference Range Interpretation Comments Total CK (test code = Total CK) 2251191 H [facility] HospitalZmjsfvwRDWTMBPHE6197-89-68 04:00:00 Test Item Value Reference Range Interpretation Comments CK MB Index (test 0.9 See_Comment N [Automate d message] The code = CK MB Index) system w [facility] generated this result transmit matteo reference range : <=2.5. The reference range was not used to interpr et this result as miesha l/abnormal. [facility] HospitalLscviupUIJXMWNPW0079-78-01 04:00:00 Test Item Value Reference Range Interpretation Comments CK MB (test code = CK MB) 20.3 0.5-3.6 H [facility]OdprxazCuhjhatzqrul0832-57-57 18:55:35 Test Item Value Reference Range Interpretation Comments Culture: Respiratory w/Gram Stain (test code = Culture: Respiratory w/Gram Stain) [facility]ressPveqhemRvsgcsmavwrd6359-58-84 18:55:35 Test Item Value Reference Range Interpretation Comments Culture: Respiratory w/Gram Stain (test code = Culture: Respiratory w/Gram Stain) [facility] CypressIdbikcbIyfmyzzxdmnq5249-58-09 18:15:35 Test Item Value Reference Range Interpretation Comments Culture: Blood (test code = Culture: Blood) [facility] CypressFztjryzYkpffmhcgvzt0763-79-14 18:15:35 Test Item Value Reference Range Interpretation Comments Culture: Blood (test code = Culture: Blood) [facility] CypressGratzhaJuudugvmklrd4053-34-37 18:05:30 Test Item Value Reference Range Interpretation Comments Culture: Blood (test code = Culture: Blood) [facility] CypressRynwrwvIuvczgvcnuxc4362-56-11 18:05:30 Test Item Value Reference Range Interpretation Comments Culture: Blood (test code = Culture: Blood) [facility] CypressEnxjvnsWujzeipdtvei8719-30-02 17:25:47 Test Item Value Reference Range Interpretation Comments Culture: Urine (test code = Culture: Urine) [facility] CypressNdiumxkJbhpeyqtvmak2498-17-94 17:25:47 Test Item Value Reference Range Interpretation Comments Culture: Urine (test code = Culture: Urine) [facility] HospitalBogixdeEPZLUCKJA7341-74-27 07:00:00 Test Item Value Reference Range Interpretation Comments Magnesium Lvl (test code = Magnesium 1.6 1.8-2.4 L Lvl) [facility] HospitalQprjfwdXFFZDJXLF5157-25-17 07:00:00 Test Item Value Reference Range Interpretation Comments ALT (test code = ALT) 23 See_Comment N [Auto mated message] The system which ge nerated this result transmit matteo reference range : <=65. The reference range was not used to interpr et this result as miesha l/abnormal. [facility] HospitalHdwgubnGUQMTAEIG0218-10-57 07:00:00 Test Item Value Reference Range Interpretation Comments Alk Phos (test code = Alk Phos) 45 39-136 N [facility] HospitalNczfuolMLEQSOQQQ9923-59-07 07:00:00 Test Item Value Reference Range Interpretation Comments Albumin Lvl (test code = Albumin Lvl) 3.4 3.5-5.0 L [facility] HospitalRgaygjxDRAZWWFIB3009-83-87 07:00:00 Test Item Value Reference Range Interpretation Comments B/C Ratio (test code = B/C Ratio) 10 6-25 N [facility] HospitalCspurcbOQORUBOHP4594-69-75 07:00:00 Test Item Value Reference Range Interpretation Comments Total Protein (test code = Total 5.9 6.4-8.4 L Protein) [facility] HospitalXiehvysVSHVKPLBU7144-06-71 07:00:00 Test Item Value Reference Range Interpretation Comments Globulin (test code = Globulin) 2.5 2.0-4.0 N [facility] HospitalUfvdqtqNYKKDDERX4646-02-20 07:00:00 Test Item Value Reference Range Interpretation Comments Bili Total (test code = Bili Total) 0.7 0.2-1.3 N [facility] HospitalCbjhbuzSZYOANSCT6657-31-85 07:00:00 Test Item Value Reference Range Interpretation Comments A/G Ratio (test code = A/G Ratio) 1.4 0.7-1.6 N [facility] HospitalCejutcoYTIJKDZQQ8249-27-91 07:00:00 Test Item Value Reference Range Interpretation Comments AST (test code = AST) 62 See_Comment H [Auto mated message] The system which ge nerated this result transmit matteo reference range : <=37. The reference range was not used to interpr et this result as miesha l/abnormal. [facility] AllianceLyvcrfpCPBUSYLXOY1321-39-87 07:00:00 Test Item Value Reference Range Interpretation Comments Polychrom (test code = Slight (02/22/2013 N Polychrom) 02:00:00) [facility] AllianceEemwlnrFGZBMXOZKN6218-44-27 07:00:00 Test Item Value Reference Range Interpretation Comments Plt Morph (test code = Normal (02/22/2013 N Plt Morph) 02:00:00) [facility] HospitalOfbbpyvLYCLFJIAB0197-50-26 07:00:00 Test Item Value Reference Range Interpretation Comments Magnesium Lvl (test code = Magnesium 1.6 1.8-2.4 L Lvl) [facility] HospitalYircirySJELOWPEW7509-63-44 07:00:00 Test Item Value Reference Range Interpretation Comments ALT (test code = ALT) 23 See_Comment N [Auto mated message] The system which ge nerated this result transmit matteo reference range : <=65. The reference range was not used to interpr et this result as miesha l/abnormal. [facility] HospitalWmaigqnGIOZPYDIP3468-22-88 07:00:00 Test Item Value Reference Range Interpretation Comments Alk Phos (test code = Alk Phos) 45 39-136 N [facility] HospitalOqacgreJATMSWUFX6309-91-37 07:00:00 Test Item Value Reference Range Interpretation Comments Albumin Lvl (test code = Albumin Lvl) 3.4 3.5-5.0 L [facility] HospitalSwuzkohHWTIVFMEC3563-09-41 07:00:00 Test Item Value Reference Range Interpretation Comments B/C Ratio (test code = B/C Ratio) 10 6-25 N [facility] HospitalZkevwouWWGZWAHDV7390-23-67 07:00:00 Test Item Value Reference Range Interpretation Comments Total Protein (test code = Total 5.9 6.4-8.4 L Protein) [facility] HospitalUjksivzLFMOWHYOP4393-52-86 07:00:00 Test Item Value Reference Range Interpretation Comments Globulin (test code = Globulin) 2.5 2.0-4.0 N [facility] HospitalFusburpRXSYXMUWL4651-90-24 07:00:00 Test Item Value Reference Range Interpretation Comments Bili Total (test code = Bili Total) 0.7 0.2-1.3 N [facility] HospitalWyiwmowFWVUIIJVV3125-78-17 07:00:00 Test Item Value Reference Range Interpretation Comments A/G Ratio (test code = A/G Ratio) 1.4 0.7-1.6 N [facility] HospitalVnvrbcuYDHPGLMLW0656-70-37 07:00:00 Test Item Value Reference Range Interpretation Comments AST (test code = AST) 62 See_Comment H [Auto mated message] The system which ge nerated this result transmit matteo reference range : <=37. The reference range was not used to interpr et this result as miesha l/abnormal. [facility] AllianceZgnwfddNWGWBPVPNW8458-13-32 07:00:00 Test Item Value Reference Range Interpretation Comments Polychrom (test code = Slight (02/22/2013 N Polychrom) 02:00:00) [facility] AllianceEloxmlgVVNOKHFUWB6016-33-50 07:00:00 Test Item Value Reference Range Interpretation Comments Plt Morph (test code = Normal (02/22/2013 N Plt Morph) 02:00:00) [facility] HospitalOsqjjvfLHFCKHGQN7531-44-86 00:49:09 Test Item Value Reference Range Interpretation Comments Allens Art (test code = N/A (02/21/2013 N Allens Art) 19:49:09) [facility] HospitalGwgatnbEWUMLZNLR4376-61-43 00:49:09 Test Item Value Reference Range Interpretation Comments Allens Art (test code = N/A (02/21/2013 N Allens Art) 19:49:09) [facility] AllianceMmitfazSVFABRXOCF3578-67-82 22:20:00 Test Item Value Reference Range Interpretation Comments Fibrinogen Lvl (test code = Fibrinogen 241 230-510 N Lvl) [facility] AllianceOwsraohXOREEQLFVY7018-31-50 22:20:00 Test Item Value Reference Range Interpretation Comments INR (test code = INR) 1.10 0.85-1.17 N [facility] AllianceQnpyedxTBTADLOSKL0379-04-77 22:20:00 Test Item Value Reference Range Interpretation Comments PT (test code = PT) 14.1 s 12.0-14.7 N [facility] AllianceWzmrtopHUWDLYDMSI8059-85-96 22:20:00 Test Item Value Reference Range Interpretation Comments PTT (test code = PTT) 31.5 s 22.9-35.8 N [facility] AllianceRidkuskFOCFJTWTWO9080-67-50 22:20:00 Test Item Value Reference Range Interpretation Comments Fibrinogen Lvl (test code = Fibrinogen 241 230-510 N Lvl) [facility] AllianceGwacfmmRDVKULLCAS1135-88-04 22:20:00 Test Item Value Reference Range Interpretation Comments INR (test code = INR) 1.10 0.85-1.17 N [facility] AllianceJjnvwtuZTZZHHQSLW9292-33-90 22:20:00 Test Item Value Reference Range Interpretation Comments PT (test code = PT) 14.1 s 12.0-14.7 N [facility] AllianceBalfiegGEQZCXXXIY0126-85-76 22:20:00 Test Item Value Reference Range Interpretation Comments PTT (test code = PTT) 31.5 s 22.9-35.8 N [facility] HospitalWfiqqbpHHMGFWXXZ6889-26-45 21:41:00 Test Item Value Reference Range Interpretation Comments POC A Glu (test code = POC A Glu) 169 70-99 H [facility] HospitalMtwwzbbEMVLTWEEV9642-68-37 21:41:00 Test Item Value Reference Range Interpretation Comments POC A Ca Ion (test code = POC A Ca Ion) 1.48 1.05-1.25 H [facility] HospitalAjvoynpGPBUWAKWB7577-74-73 21:41:00 Test Item Value Reference Range Interpretation Comments POC A Hct (test code = POC A Hct) 25.0 36.0-48.0 L [facility] HospitalXxbryniFYQUTRMBD1047-34-52 21:41:00 Test Item Value Reference Range Interpretation Comments POC A K (test code = POC A K) 3.4 3.5-5.1 L [facility] HospitalDufewsgJEUGFGRQD3543-31-14 21:41:00 Test Item Value Reference Range Interpretation Comments POC A Na (test code = POC A Na) 139 135-145 N [facility] HospitalCgbnnqjBQTHSKWSS1276-41-85 21:41:00 Test Item Value Reference Range Interpretation Comments POC A PO2 (test code = POC A PO2) 182 80-100 H [facility] HospitalEfsbhjyZFGQWLQGR6979-09-69 21:41:00 Test Item Value Reference Range Interpretation Comments POC A pH (test code = POC A pH) 7.39 7.35-7.45 N [facility] HospitalWthcdceKVUXSRZRC9294-67-21 21:41:00 Test Item Value Reference Range Interpretation Comments POC A PCO2 (test code = POC A PCO2) 45 35-45 N [facility] HospitalVsbygjiPCEZRXBNO2782-62-58 21:41:00 Test Item Value Reference Range Interpretation Comments POC A HCO3 (test code = POC A HCO3) 27 22-26 H [facility] HospitalPhwzmjkCUDUWPRQW8520-74-18 21:41:00 Test Item Value Reference Range Interpretation Comments POC A Source (test code = POC A Source) ART [facility] HospitalKiwtybxXELTCEWAT3868-17-73 21:41:00 Test Item Value Reference Range Interpretation Comments POC A Temp (test code = POC A Temp) 37.0 [facility] HospitalHpswocxBDUSDUJAA4294-91-11 21:41:00 Test Item Value Reference Range Interpretation Comments POC A O2 Sat (test code = POC A O2 Sat) 100.0 95.0-100.0 N [facility] HospitalIpfpndkCSGMHXDHK5484-61-15 21:41:00 Test Item Value Reference Range Interpretation Comments POC A BE (test code = 2 See_Comment N [Auto mated message] The POC A BE) system which ge nerated this result transmit matteo reference range : <=2. The reference range was not used to interpr et this result as miesha l/abnormal. [facility] HospitalVvcypolGVAMUUZOB8076-06-72 21:41:00 Test Item Value Reference Range Interpretation Comments POC A Glu (test code = POC A Glu) 169 70-99 H [facility] HospitalDruvdyiBMQXTZAEX4899-78-96 21:41:00 Test Item Value Reference Range Interpretation Comments POC A Ca Ion (test code = POC A Ca Ion) 1.48 1.05-1.25 H [facility] HospitalBymimcpFIOKCSORT6543-77-44 21:41:00 Test Item Value Reference Range Interpretation Comments POC A Hct (test code = POC A Hct) 25.0 36.0-48.0 L [facility] HospitalBvnckzrCJNBINXHC3302-33-50 21:41:00 Test Item Value Reference Range Interpretation Comments POC A K (test code = POC A K) 3.4 3.5-5.1 L [facility] HospitalHprlpitFCDWOZWWV1044-18-99 21:41:00 Test Item Value Reference Range Interpretation Comments POC A Na (test code = POC A Na) 139 135-145 N [facility] HospitalIpoeiiyVKMWHRFIL3243-17-44 21:41:00 Test Item Value Reference Range Interpretation Comments POC A PO2 (test code = POC A PO2) 182 80-100 H [facility] HospitalIpfdkzzOFUAEVXWM0917-05-18 21:41:00 Test Item Value Reference Range Interpretation Comments POC A pH (test code = POC A pH) 7.39 7.35-7.45 N [facility] HospitalTruahibBINTZOICJ3058-50-52 21:41:00 Test Item Value Reference Range Interpretation Comments POC A PCO2 (test code = POC A PCO2) 45 35-45 N [facility] HospitalEigwfshVZUBJBIGW7926-49-89 21:41:00 Test Item Value Reference Range Interpretation Comments POC A HCO3 (test code = POC A HCO3) 27 22-26 H [facility] HospitalTjsigndKACXDKOMP6384-07-73 21:41:00 Test Item Value Reference Range Interpretation Comments POC A Source (test code = POC A Source) ART [facility] HospitalPxzrrbgMERXRRLOU7207-08-55 21:41:00 Test Item Value Reference Range Interpretation Comments POC A Temp (test code = POC A Temp) 37.0 [facility] HospitalAzoqoztBZJOTGGDQ4318-47-09 21:41:00 Test Item Value Reference Range Interpretation Comments POC A O2 Sat (test code = POC A O2 Sat) 100.0 95.0-100.0 N [facility] HospitalAyfaknhQSMVJBCMM7391-61-04 21:41:00 Test Item Value Reference Range Interpretation Comments POC A BE (test code = 2 See_Comment N [Auto mated message] The POC A BE) system which ge nerated this result transmit matteo reference range : <=2. The reference range was not used to interpr et this result as miesha l/abnormal. [facility] HospitalFbrszzxPCGSIQQMZ6455-18-90 21:10:00 Test Item Value Reference Range Interpretation Comments POC A Glu (test code = POC A Glu) 152 70-99 H [facility] HospitalJstfpskWHDTUUKGQ7841-87-24 21:10:00 Test Item Value Reference Range Interpretation Comments POC A Ca Ion (test code = POC A Ca Ion) 1.54 1.05-1.25 H [facility] HospitalPwocxdoJAWIRKSYU1052-66-86 21:10:00 Test Item Value Reference Range Interpretation Comments POC A PO2 (test code = POC A PO2) 312 80-100 H [facility] HospitalVawpwvbYDWYREHAP7141-42-28 21:10:00 Test Item Value Reference Range Interpretation Comments POC A PCO2 (test code = POC A PCO2) 49 35-45 H [facility] HospitalAwlctosQBXZURBQG7516-43-42 21:10:00 Test Item Value Reference Range Interpretation Comments POC A HCO3 (test code = POC A HCO3) 28 22-26 H [facility] HospitalKomckioAOGFVJPOO6603-44-53 21:10:00 Test Item Value Reference Range Interpretation Comments POC A Temp (test code = POC A Temp) 37.0 [facility] HospitalIwdngeoZDXCIWZNC1027-61-80 21:10:00 Test Item Value Reference Range Interpretation Comments POC A Hct (test code = POC A Hct) 25.0 36.0-48.0 L [facility] HospitalFeyxbraXJOZERWDH7373-60-18 21:10:00 Test Item Value Reference Range Interpretation Comments POC A Na (test code = POC A Na) 138 135-145 N [facility] HospitalXvxxmcdZOMTOMFFV3289-78-55 21:10:00 Test Item Value Reference Range Interpretation Comments POC A K (test code = POC A K) 4.0 3.5-5.1 N [facility] HospitalBdshkisNWTWFEPSC3116-36-43 21:10:00 Test Item Value Reference Range Interpretation Comments POC A BE (test code = 3 See_Comment H [Auto mated message] The POC A BE) system which ge nerated this result transmit matteo reference range : <=2. The reference range was not used to interpr et this result as miesha l/abnormal. [facility] HospitalPstaedcVEOTPOJHL3749-45-03 21:10:00 Test Item Value Reference Range Interpretation Comments POC A O2 Sat (test code = POC A O2 Sat) 100.0 95.0-100.0 N [facility] HospitalDltgonwCRPSYLOYE4083-68-70 21:10:00 Test Item Value Reference Range Interpretation Comments POC A pH (test code = POC A pH) 7.37 7.35-7.45 N [facility] HospitalQmoditmBOHCLIKAS2794-95-07 21:10:00 Test Item Value Reference Range Interpretation Comments POC A Source (test code = POC A Source) ART [facility] HospitalPqfsfczYSXHZETIL5106-74-98 21:10:00 Test Item Value Reference Range Interpretation Comments POC A Glu (test code = POC A Glu) 152 70-99 H [facility] HospitalTrdylryQNWFAYCOQ2973-76-77 21:10:00 Test Item Value Reference Range Interpretation Comments POC A Ca Ion (test code = POC A Ca Ion) 1.54 1.05-1.25 H [facility] HospitalCldqstbMQAPWVZKK2942-31-82 21:10:00 Test Item Value Reference Range Interpretation Comments POC A PO2 (test code = POC A PO2) 312 80-100 H [facility] HospitalCobijifFJMRBCNNP5826-30-35 21:10:00 Test Item Value Reference Range Interpretation Comments POC A PCO2 (test code = POC A PCO2) 49 35-45 H [facility] HospitalEqedpmrJQJJQBWEX2127-12-84 21:10:00 Test Item Value Reference Range Interpretation Comments POC A HCO3 (test code = POC A HCO3) 28 22-26 H [facility] HospitalDxvkzxaOHEQTBGEE6183-14-08 21:10:00 Test Item Value Reference Range Interpretation Comments POC A Temp (test code = POC A Temp) 37.0 [facility] HospitalIgmbqzbBOUGTDKRT5983-05-39 21:10:00 Test Item Value Reference Range Interpretation Comments POC A Hct (test code = POC A Hct) 25.0 36.0-48.0 L [facility] HospitalUypqhsmOVULRVCQJ8037-15-96 21:10:00 Test Item Value Reference Range Interpretation Comments POC A Na (test code = POC A Na) 138 135-145 N [facility] HospitalMkznwzlUOJCWIPIT9164-84-22 21:10:00 Test Item Value Reference Range Interpretation Comments POC A K (test code = POC A K) 4.0 3.5-5.1 N [facility] HospitalWgaikwvOURUHJKGL1215-59-25 21:10:00 Test Item Value Reference Range Interpretation Comments POC A BE (test code = 3 See_Comment H [Auto mated message] The POC A BE) system which ge nerated this result transmit matteo reference range : <=2. The reference range was not used to interpr et this result as miesha l/abnormal. [facility] HospitalFduuxscJKIQPPYWZ5472-00-56 21:10:00 Test Item Value Reference Range Interpretation Comments POC A O2 Sat (test code = POC A O2 Sat) 100.0 95.0-100.0 N [facility] HospitalVhnubhiUGJBVGAFI3053-44-27 21:10:00 Test Item Value Reference Range Interpretation Comments POC A pH (test code = POC A pH) 7.37 7.35-7.45 N [facility]DdydvoeZYMCDECVX6327-54-33 21:10:00 Test Item Value Reference Range Interpretation Comments POC A Source (test code = POC A Source) ART [facility] CenterTow Choice [id number] 21:07:00 Test Item Value Reference Range Interpretation Comments FFP product (test code Product available N = FFP product) (02/21/2013 16:07:00) [facility] CenterGeneNewsOOD BANK [id number] 21:07:00 Test Item Value Reference Range Interpretation Comments FFP product (test code Product available N = FFP product) (02/21/2013 16:07:00) [facility] CenterKicknote.com BANK [id number] 21:05:00 Test Item Value Reference Range Interpretation Comments Platelet product (test Product available N code = Platelet (02/21/2013 16:05:00) product) [facility] CenterTow Choice [id number] 21:05:00 Test Item Value Reference Range Interpretation Comments Platelet product (test Product available N code = Platelet (02/21/2013 16:05:00) product) [facility] HospitalYhtunoxIDSPXUDBB4669-83-08 20:52:00 Test Item Value Reference Range Interpretation Comments POC A PO2 (test code = POC A PO2) 362 80-100 H [facility] HospitalTraoavzWMMQAQRMV2159-80-88 20:52:00 Test Item Value Reference Range Interpretation Comments POC A pH (test code = POC A pH) 7.40 7.35-7.45 N [facility] HospitalUolsbuuFHIRUNQQL0118-18-93 20:52:00 Test Item Value Reference Range Interpretation Comments POC A BE (test code = 3 See_Comment H [Auto mated message] The POC A BE) system which ge nerated this result transmit matteo reference range : <=2. The reference range was not used to interpr et this result as miesha l/abnormal. [facility]XtjaufnUOJURIARY3403-74-88 20:52:00 Test Item Value Reference Range Interpretation Comments POC A PCO2 (test code = POC A PCO2) 45 35-45 N [facility]PhrtgxxHBQVXRZUK4210-92-12 20:52:00 Test Item Value Reference Range Interpretation Comments POC A HCO3 (test code = POC A HCO3) 28 22-26 H [facility] HospitalCbxkomwTHUSGUIUF7742-70-91 20:52:00 Test Item Value Reference Range Interpretation Comments POC A Hct (test code = POC A Hct) 24.0 36.0-48.0 L [facility] HospitalGdnzttiTFURNKIST1894-08-16 20:52:00 Test Item Value Reference Range Interpretation Comments POC A Na (test code = POC A Na) 139 135-145 N [facility] HospitalMcejnbmJNXQAUTMA7953-38-98 20:52:00 Test Item Value Reference Range Interpretation Comments POC A Temp (test code = POC A Temp) 37.0 [facility] HospitalSwuwxicGYKTPGNDR0788-58-30 20:52:00 Test Item Value Reference Range Interpretation Comments POC A O2 Sat (test code = POC A O2 Sat) 100.0 95.0-100.0 N [facility] HospitalMdzpeoiLVFUWCZRP0592-43-73 20:52:00 Test Item Value Reference Range Interpretation Comments POC A Source (test code = POC A Source) ART [facility] HospitalGwxhqlkGEOAPRMXB1883-56-56 20:52:00 Test Item Value Reference Range Interpretation Comments POC A K (test code = POC A K) 3.8 3.5-5.1 N [facility] HospitalNpsrkvfYHYGAKZRO5980-63-91 20:52:00 Test Item Value Reference Range Interpretation Comments POC A Ca Ion (test code = POC A Ca Ion) 0.97 1.05-1.25 L [facility] HospitalKlpmmamAFDRHHRGP5141-53-39 20:52:00 Test Item Value Reference Range Interpretation Comments POC A Glu (test code = POC A Glu) 150 70-99 H [facility] HospitalWawyhytCUMPNDWOK7581-81-05 20:52:00 Test Item Value Reference Range Interpretation Comments POC A PO2 (test code = POC A PO2) 362 80-100 H [facility] HospitalAwyhxwkYBBXTFBRQ8832-53-12 20:52:00 Test Item Value Reference Range Interpretation Comments POC A pH (test code = POC A pH) 7.40 7.35-7.45 N [facility] HospitalNnmazkwEVBMYGGCT7870-10-45 20:52:00 Test Item Value Reference Range Interpretation Comments POC A BE (test code = 3 See_Comment H [Auto mated message] The POC A BE) system which ge nerated this result transmit matteo reference range : <=2. The reference range was not used to interpr et this result as miesha l/abnormal. [facility] HospitalZhsupsmUILBWYABH3793-15-18 20:52:00 Test Item Value Reference Range Interpretation Comments POC A PCO2 (test code = POC A PCO2) 45 35-45 N [facility] HospitalRcgzqhxEGIQGPVYH2407-73-51 20:52:00 Test Item Value Reference Range Interpretation Comments POC A HCO3 (test code = POC A HCO3) 28 22-26 H [facility] HospitalXxiqbfiYUXGERNCC0818-93-07 20:52:00 Test Item Value Reference Range Interpretation Comments POC A Hct (test code = POC A Hct) 24.0 36.0-48.0 L [facility] HospitalJcbndzjPXGBQDKZM3818-88-09 20:52:00 Test Item Value Reference Range Interpretation Comments POC A Na (test code = POC A Na) 139 135-145 N [facility] HospitalVzgmifdAQHPJTPOP1778-04-72 20:52:00 Test Item Value Reference Range Interpretation Comments POC A Temp (test code = POC A Temp) 37.0 [facility] HospitalScuyqzxLUCUZDIXT9485-88-75 20:52:00 Test Item Value Reference Range Interpretation Comments POC A O2 Sat (test code = POC A O2 Sat) 100.0 95.0-100.0 N [facility] HospitalLnuhgmbITFOLZNJV2444-90-30 20:52:00 Test Item Value Reference Range Interpretation Comments POC A Source (test code = POC A Source) ART [facility] HospitalTfjqhkyBMSNJVMLV7734-53-82 20:52:00 Test Item Value Reference Range Interpretation Comments POC A K (test code = POC A K) 3.8 3.5-5.1 N [facility] HospitalUfmihvsUGESHZZRB9038-11-83 20:52:00 Test Item Value Reference Range Interpretation Comments POC A Ca Ion (test code = POC A Ca Ion) 0.97 1.05-1.25 L [facility] HospitalFbrihosKCLAUIPTK3016-56-06 20:52:00 Test Item Value Reference Range Interpretation Comments POC A Glu (test code = POC A Glu) 150 70-99 H [facility] WKBNQFK9450-78-84 20:20:00 Test Item Value Reference Range Interpretation Comments FFP product (test code Product available N = FFP product) (02/21/2013 15:20:00) [facility] [id number] 20:20:00 Test Item Value Reference Range Interpretation Comments Platelet product (test Product available N code = Platelet (02/21/2013 15:20:00) product) [facility] [id number] 20:20:00 Test Item Value Reference Range Interpretation Comments FFP product (test code Product available N = FFP product) (02/21/2013 15:20:00) [facility] [id number] 20:20:00 Test Item Value Reference Range Interpretation Comments Platelet product (test Product available N code = Platelet (02/21/2013 15:20:00) product) [facility] [id number] 20:06:00 Test Item Value Reference Range Interpretation Comments Platelet product (test Product available N code = Platelet (02/21/2013 15:06:00) product) [facility] [id number] 20:06:00 Test Item Value Reference Range Interpretation Comments Platelet product (test Product available N code = Platelet (02/21/2013 15:06:00) product) [facility] [id number] 15:46:00 Test Item Value Reference Range Interpretation Comments FFP product (test code Product available N = FFP product) (02/21/2013 10:46:00) [facility] BANK [id number] 15:46:00 Test Item Value Reference Range Interpretation Comments FFP product (test code Product available N = FFP product) (02/21/2013 10:46:00) [facility]dv[facility]lxQPQEWYNMYV8488-24-58 19:43:34 Test Item Value Reference Range Interpretation Comments UA Color (test code = Colorless UA Color) *NA*(02/20/2013 14:43:34) [facility]ballBwnhpqpSXVHDAKYUQ8480-79-87 19:43:34 Test Item Value Reference Range Interpretation Comments UA Urobilinogen (test code = UA no gt 0.1-1.0 Urobilinogen) [facility]ou[facility]wyuNKNRMJDTDL5597-28-24 19:43:34 Test Item Value Reference Range Interpretation Comments UA Leuk Est (test Negative (02/20/2013 N code = UA Leuk Est) 14:43:34) [facility] HospitalAotnxdqYRNVDFWLON5926-08-61 19:43:34 Test Item Value Reference Range Interpretation Comments UA Nitrite (test code Negative (02/20/2013 N = UA Nitrite) 14:43:34) [facility]ballBhcbhssRJFPEAIKVU6981-13-34 19:43:34 Test Item Value Reference Range Interpretation Comments UA Glucose (test code Negative mg/dL = UA Glucose) *NA*(02/20/2013 14:43:34) [facility] HospitalFpqypnoMYQIXNEJOL7229-70-18 19:43:34 Test Item Value Reference Range Interpretation Comments UA Protein (test code Negative mg/dL N = UA Protein) (02/20/2013 14:43:34) [facility]ballKtdpsslKDVTDSAHXG5991-39-21 19:43:34 Test Item Value Reference Range Interpretation Comments UA Blood (test code = Trace *ABN*(02/20/2013 A UA Blood) 14:43:34) [facility]ballOwwivapGRZZJQIQMK1492-71-22 19:43:34 Test Item Value Reference Range Interpretation Comments UA Bili (test code = Negative *NA*(02/20/2013 UA Bili) 14:43:34) [facility]ballGjceweqYPKEPOVUPO6830-41-19 19:43:34 Test Item Value Reference Range Interpretation Comments UA Spec Grav (test code = UA Spec Grav) 1.009 N [facility]ballVolihydNMIAGWNGWV1040-17-64 19:43:34 Test Item Value Reference Range Interpretation Comments UA Turbidity (test code = Clear (02/20/2013 N UA Turbidity) 14:43:34) [facility] HospitalSfibimqUZWKQSZUTE2299-01-24 19:43:34 Test Item Value Reference Range Interpretation Comments UA pH (test code = UA pH) 6.0 5.0-8.0 N [facility]ballMflzhojEGQWHJIKDD1410-11-23 19:43:34 Test Item Value Reference Range Interpretation Comments UA Ketones (test code Negative mg/dL = UA Ketones) *NA*(02/20/2013 14:43:34) [facility] HospitalXwxxkjhJOOOVWLSXS7901-23-19 19:43:34 Test Item Value Reference Range Interpretation Comments UA RBC (test code = 1 See_Comment N [Automa matteo message] The UA RBC) system which ge nerated this result transmit matteo reference range : <=2. The reference range was not used to interpr et this result as miesha l/abnormal. [facility] HospitalYafidciTGSEYEIIVN1711-14-99 19:43:34 Test Item Value Reference Range Interpretation Comments UA Sq Epi (test code = Few /LPF UA Sq Epi) *NA*(02/20/2013 14:43:34) [facility] HospitalPrsegwvGUGPUCKXZL4054-97-22 19:43:34 Test Item Value Reference Range Interpretation Comments UA Bacteria (test code Occasional /HPF = UA Bacteria) *NA*(02/20/2013 14:43:34) [facility] HospitalExathvlOXAATDVPEO7544-30-91 19:43:34 Test Item Value Reference Range Interpretation Comments UA Color (test code = Colorless UA Color) *NA*(02/20/2013 14:43:34) [facility] HospitalAoplbooLFGQPLPWFJ9257-78-04 19:43:34 Test Item Value Reference Range Interpretation Comments UA Urobilinogen (test code = UA no gt 0.1-1.0 Urobilinogen) [facility] HospitalVoygouvEKNNPYMWSG5269-30-50 19:43:34 Test Item Value Reference Range Interpretation Comments UA Leuk Est (test Negative (02/20/2013 N code = UA Leuk Est) 14:43:34) [facility] HospitalEztaxylECAKPUYTQV5811-12-56 19:43:34 Test Item Value Reference Range Interpretation Comments UA Nitrite (test code Negative (02/20/2013 N = UA Nitrite) 14:43:34) [facility] HospitalZpkaxxmMVDIPIJJKC7732-19-04 19:43:34 Test Item Value Reference Range Interpretation Comments UA Glucose (test code Negative mg/dL = UA Glucose) *NA*(02/20/2013 14:43:34) [facility] HospitalWezxppaKSYIQHRXMJ8394-55-78 19:43:34 Test Item Value Reference Range Interpretation Comments UA Protein (test code Negative mg/dL N = UA Protein) (02/20/2013 14:43:34) [facility] HospitalHmwaiylYMRDZQOCUI1962-78-84 19:43:34 Test Item Value Reference Range Interpretation Comments UA Blood (test code = Trace *ABN*(02/20/2013 A UA Blood) 14:43:34) [facility] HospitalPnrgnkxQLDRPUQMAL4862-32-68 19:43:34 Test Item Value Reference Range Interpretation Comments UA Bili (test code = Negative *NA*(02/20/2013 UA Bili) 14:43:34) [facility] HospitalAfashbaACBEONEZUT5565-19-04 19:43:34 Test Item Value Reference Range Interpretation Comments UA Spec Grav (test code = UA Spec Grav) 1.009 N [facility] HospitalLihiazvDSRKPIFQKB1706-51-13 19:43:34 Test Item Value Reference Range Interpretation Comments UA Turbidity (test code = Clear (02/20/2013 N UA Turbidity) 14:43:34) [facility] HospitalRwvbwdyNJXMAAVPHK8687-69-66 19:43:34 Test Item Value Reference Range Interpretation Comments UA pH (test code = UA pH) 6.0 5.0-8.0 N [facility] HospitalRflkhptBLBSVBRNLG4102-12-35 19:43:34 Test Item Value Reference Range Interpretation Comments UA Ketones (test code Negative mg/dL = UA Ketones) *NA*(02/20/2013 14:43:34) [facility] HospitalUfyfsyePGVURGGXJV1572-94-31 19:43:34 Test Item Value Reference Range Interpretation Comments UA RBC (test code = 1 See_Comment N [Automa matteo message] The UA RBC) system which ge nerated this result transmit matteo reference range : <=2. The reference range was not used to interpr et this result as miesha l/abnormal. [facility] HospitalWqsuiuhYLCHYZPWVO5661-88-68 19:43:34 Test Item Value Reference Range Interpretation Comments UA Sq Epi (test code = Few /LPF UA Sq Epi) *NA*(02/20/2013 14:43:34) [facility]McfvtfuORQYMNUPZH2268-25-64 19:43:34 Test Item Value Reference Range Interpretation Comments UA Bacteria (test code Occasional /HPF = UA Bacteria) *NA*(02/20/2013 14:43:34) [facility] [id number] 19:11:48 Test Item Value Reference Range Interpretation Comments MRSA by PCR (test Negative 1(02/20/2013 N code = MRSA by PCR) 14:11:48) [facility] FXIGOWRE6061-26-31 19:11:48 Test Item Value Reference Range Interpretation Comments MRSA by PCR (test Negative 1(02/20/2013 N code = MRSA by PCR) 14:11:48) [facility] AllianceNpyzihcZSZAEFJABW5535-94-07 19:11:39 Test Item Value Reference Range Interpretation Comments Plav Effect Plt (test code = Plav 303 Effect Plt) [facility] AllianceMdoandpWGAIIZPRZB0087-66-91 19:11:39 Test Item Value Reference Range Interpretation Comments Plav Effect Plt (test code = Plav 303 Effect Plt) [facility] OTRBFIG7654-69-33 19:11:00 Test Item Value Reference Range Interpretation Comments Antibody Scrn (test Negative (02/20/2013 N code = Antibody Scrn) 14:11:00) [facility] [id number] 19:11:00 Test Item Value Reference Range Interpretation Comments ABO/Rh (test code = ABO/Rh) A POS [facility] AllianceUnszgvmSDZVHAVEOF8098-36-88 19:11:00 Test Item Value Reference Range Interpretation Comments Macrocyte (test code = 1+ *ABN*(02/20/2013 A Macrocyte) 14:11:00) [facility] [id number] 19:11:00 Test Item Value Reference Range Interpretation Comments Antibody Scrn (test Negative (02/20/2013 N code = Antibody Scrn) 14:11:00) [facility] VDWVJCK2546-07-31 19:11:00 Test Item Value Reference Range Interpretation Comments ABO/Rh (test code = ABO/Rh) A POS [facility] AllianceKjzzodhFWBTTLOGAV8166-39-31 19:11:00 Test Item Value Reference Range Interpretation Comments Macrocyte (test code = 1+ *ABN*(02/20/2013 A Macrocyte) 14:11:00) [facility]
[2022-07-01 09:16] LABS: Hematocrit 32.7 % (36.0-45.0); MPV 7.1 fL (7.6-11.3); RBC Red Blood Cell Count 3.44 M/uL (3.86-4.86)
[2022-07-01 09:31] LABS: Albumin 3.9 g/dL (3.4-5.0); Bilirubin Total 0.3 mg/dL (0.2-1.0); Potassium 3.3 mmol/L (3.5-5.1); Protein, Total 7.3 g/dL (6.4-8.2)
--- NOTE | 2022-07-01 10:05 | RAD REPORT ---
EXAM DESCRIPTION: CTAbdomen Pelvis W Contrast - 07/01/2022 9:49 am CLINICAL HISTORY: Diffuse abdominal pain COMPARISON: CT ABD PELVIS W CONTRAST dated 06/18/2010; CT ABD PELVIS W CONTRAST dated 01/06/2010 TECHNIQUE: CT of the abdomen and pelvis was performed with IV contrast. All CT scans are performed using dose optimization technique as appropriate and may include automated exposure control or mA/KV adjustment according to patient size. FINDINGS: Lower chest: No acute abnormality. Liver: No acute abnormality or suspicious lesions. Biliary: Cholelithiasis. Stomach: No significant focal abnormality. Duodenum: No significant focal abnormality. Pancreas: No significant abnormality. Spleen: No significant abnormality. Adrenal: No suspicious lesions. Kidney/ureter: No hydronephrosis. Too small to characterize and/or benign appearing renal lesions are noted. Retroperitoneum: No retroperitoneal adenopathy. Vascular: No aneurysm. Heavily calcified abdominal aorta with severe stenosis below the renal arterie s. Occluded right SFA stent. There is likely either occlusion or high-grade stenosis of the left exte rnal iliac artery stent. The right common iliac artery is likely severely narrowed. Right axillary fe moral bypass. Left femoral bypass partially imaged in the left. Bowel: Air-fluid levels are present throughout the colon consistent with diarrheal disease. No bowel obstruction. A few colonic diverticular noted. No evidence of acute diverticulitis. No appendicitis.. Peritoneum: No ascites or free air. Bladder: Calcifications in the region of the urethra may be from a urethral diverticulum. This was pr esent previously. Reproductive: No adnexal masses. Bones: No acute fracture. Other: n/a IMPRESSION: No acute intra-abdominal or pelvic finding. Air-fluid levels in the colon likely reflect ing diarrheal disease. No bowel obstruction.
[2022-07-01 12:35] LABS: C.diff Antigen/Toxin Ag neg : Tox neg (NEG : NEG)
--- NOTE | 2022-07-01 12:45 | EDPHYS ---
Physician Documentation [facility] Name: Cassie Huang Age: 72 yrs Sex: Female : 1950 Arrival Date: 07/01/2022 Time: 08:02 Bed 4 Private MD: Sumeet Brody ED Physician Ricki Keene HPI: 07/01 09:20 This 72 yrs old Female presents to ER via Ambulatory with complaints of Abdominal Pain, ms3 Diarrhea. 09:20 The patient presents to the emergency department with diarrhea, abdominal pain. Onset: ms3 The symptoms/episode began/occurred 2 month(s) ago. Possible causes: unknown. The symptoms are aggravated by nothing. The symptoms are alleviated by nothing. Associated signs and symptoms: Pertinent positives: diarrhea. Severity of symptoms: At their worst the symptoms were severe in the emergency department the symptoms have improved Pain is currently a 5 / 10. Historical: - Allergies: 08:08 Levaquin; ll1 08:09 lactose (bulk); ll1 - PMHx: 08:08 CHF; High Cholesterol; Hypertension; ll1 08:10 Hypothyroidism; ll1 - PSHx: 08:10 Carotid endarterectomy; cataract repair; ll1 - Immunization history:: Client reports receiving the 2nd dose of the Covid vaccine. - Social history:: Smoking status: Patient denies any tobacco usage or history of. ROS: 09:20 Constitutional: Negative for fever, and chills. Neck: Negative for injury, pain, and ms3 swelling, Cardiovascular: Negative for chest pain, and palpitations. Respiratory: Negative for shortness of breath, cough, wheezing, and pleuritic chest pain. 09:20 Abdomen/GI: Positive for abdominal pain, diarrhea. Exam: 09:20 Constitutional: This is a well developed, well nourished patient who is awake, alert, ms3 and in no acute distress. Head/Face: Normocephalic, atraumatic. Chest/axilla: Normal chest wall appearance and motion. Nontender with no deformity. Cardiovascular: Regular rate and rhythm with a normal S1 and S2. No gallops, murmurs, or rubs. Normal PMI, no JVD. No pulse deficits. Respiratory: Lungs have equal breath sounds bilaterally, clear to auscultation and percussion. No rales, rhonchi or wheezes noted. No increased work of breathing, no retractions or nasal flaring. 09:20 Skin: Warm, dry with normal turgor. Normal color with no rashes, no lesions, and no evidence of cellulitis. MS/ Extremity: Pulses equal, no cyanosis. Neurovascular intact. Full, normal range of motion. 09:20 Abdomen/GI: Inspection: abdomen appears normal, Bowel sounds: normal, Palpation: moderate abdominal tenderness, in all quadrants. Vital Signs: 08:10 BP 121 / 56; Pulse 56; Resp 17; Temp 98.2; Pulse Ox 100% ; Weight 56.25 kg; Height 4 ll1 ft. 10 in. (147.32 cm); Pain 5/10; 12:17 BP 178 / 60; Pulse 57; Resp 18; Pulse Ox 97% on R/A; ld1 13:07 BP 165 / 63; Pulse 61; Resp 18; Pulse Ox 98% on R/A; ld1 08:10 Body Mass Index 25.92 (56.25 kg, 147.32 cm) ll1 MDM: 08:45 Patient medically screened. ms3 12:45 Data reviewed: vital signs, nurses notes, radiologic studies, CT scan, and as a result, ms3 I will discharge patient. Counseling: I had a detailed discussion with the patient and/or guardian regarding: the historical points, exam findings, and any diagnostic results supporting the discharge/admit diagnosis, lab results, radiology results, the need for outpatient follow up, to return to the emergency department if symptoms worsen or persist or if there are any questions or concerns that arise at home. ED course: Discussed patient's labs and CT with patient and her . Discussed with patient hemoglobin slightly low indicating anemia. Patient instructed to continue with her current home medications. Admission not indicated at this time. Patient to follow Dr. Villarreal in 2 to 3 days. Patient stands agrees with plan. All questions were answered. Return precautions discussed include worsening symptoms, or any other concerns.. 07/01 08:21 Order name: CBC with Diff; Complete Time: 09:40 ms3 07/01 08:21 Order name: CMP; Complete Time: 09:40 ms3 07/01 08:21 Order name: Lipase; Complete Time: 09:40 ms3 07/01 08:21 Order name: IV Saline Lock; Complete Time: 08:38 ms3 07/01 08:46 Order name: CT Abd/Pelvis - IV Contrast Only; Complete Time: 10:06 ms3 07/01 10:27 Order name: C.difficile; Complete Time: 12:43 ms3 07/01 08:21 Order name: Labs collected and sent; Complete Time: 08:38 ms3 07/01 08:42 Order name: Labs - recollect needed: recollect green and lavender top; Complete Time: bd 09:14 Administered Medications: No medications were administered Disposition Summary: 07/01/22 12:45 Discharge Ordered Location: Home ms3 Condition: Stable ms3 Diagnosis - Anemia, unspecified ms3 - Abdominal pain, unspecified ms3 - Diarrhea, unspecified ms3 Followup: ms3 - With: Ervin David MD - When: 2 - 3 days - Reason: Recheck today's complaints Discharge Instructions: - Discharge Summary Sheet ms3 - Abdominal Pain, Adult ms3 - Anemia ms3 - Diarrhea, Adult ms3 Forms: - Medication Reconciliation Form ms3 - Thank You Letter ms3 - Antibiotic Education ms3 - Prescription Opioid Use ms3 Signatures: Dispatcher [employer] Cassie Dos Santos Lynsay RN RN ll1 Ricki Keene DO DO ms3
--- NOTE | 2022-07-01 12:45 | ER ---
Nurse's Notes [facility] Ron Name: Cassie Huang Age: 72 yrs Sex: Female : 1950 Arrival Date: 07/01/2022 Time: 08:02 Bed 4 Private MD: Sumeet Brody Diagnosis: Anemia, unspecified;Abdominal pain, unspecified;Diarrhea, unspecified Presentation: 07/01 08:10 Chief complaint: Patient states: Diarrhea for 3-[address] David, but not ll1 getting better. Coronavirus screen: Vaccine status: Patient reports receiving the 2nd dose of the covid vaccine. Client denies travel out of the [place] in the last 14 days. At this time, the client does not indicate any symptoms associated with coronavirus-19. Ebola Screen: Patient denies travel to an Ebola-affected area in the 21 days before illness onset. Initial Sepsis Screen: Does the patient meet any 2 criteria? No. Patient's initial sepsis screen is negative. Does the patient have a suspected source of infection? Yes: Acute abdominal pain. Risk Assessment: Do you want to hurt yourself or someone else? Patient reports no desire to harm self or others. Onset of symptoms was June 01, 2022. 08:10 Method Of Arrival: Ambulatory ll1 08:10 Acuity: ELIANE 3 ll1 Historical: - Allergies: 08:08 Levaquin; ll1 08:09 lactose (bulk); ll1 - PMHx: 08:08 CHF; High Cholesterol; Hypertension; ll1 08:10 Hypothyroidism; ll1 - PSHx: 08:10 Carotid endarterectomy; cataract repair; ll1 - Immunization history:: Client reports receiving the 2nd dose of the Covid vaccine. - Social history:: Smoking status: Patient denies any tobacco usage or history of. Screenin:18 [facility] ED Fall Risk Assessment (Adult). Abuse screen: Denies threats or abuse. Denies ph injuries from another. Nutritional screening: No deficits noted. Tuberculosis screening: No symptoms or risk factors identified. Assessment: 08:39 General: Appears in no apparent distress. comfortable, well groomed, Behavior is calm, ph cooperative, appropriate for age, Denies fever. Pain: Complains of pain in abdomen. Neuro: Level of Consciousness is awake, alert, obeys commands, Oriented to person, place, time, situation. Cardiovascular: Capillary refill < 3 seconds in bilateral fingers Patient's skin is warm and dry. Respiratory: Airway is patent Respiratory effort is even, unlabored. GI: Abdomen is non-distended, Bowel sounds present X 4 quads. Reports lower abdominal pain, upper abdominal pain, diarrhea, nausea. Derm: Skin is pink, warm \T\ dry. 10:17 Reassessment: Patient appears in no apparent distress at this time. Patient and/or ld1 family updated on plan of care and expected duration. Pain level reassessed. Patient is alert, oriented x 3, equal unlabored respirations, skin warm/dry/pink. 13:07 Reassessment: Patient appears in no apparent distress at this time. Patient and/or ld1 family updated on plan of care and expected duration. Pain level reassessed. Patient is alert, oriented x 3, equal unlabored respirations, skin warm/dry/pink. Vital Signs: 08:10 BP 121 / 56; Pulse 56; Resp 17; Temp 98.2; Pulse Ox 100% ; Weight 56.25 kg; Height 4 ll1 ft. 10 in. (147.32 cm); Pain 5/10; 12:17 BP 178 / 60; Pulse 57; Resp 18; Pulse Ox 97% on R/A; ld1 13:07 BP 165 / 63; Pulse 61; Resp 18; Pulse Ox 98% on R/A; ld1 08:10 Body Mass Index 25.92 (56.25 kg, 147.32 cm) ll1 ED Course: 08:02 Patient arrived in ED. mr 08:02 Sumeet Brody MD is Private Physician. mr 08:08 Arm band placed on. ll1 08:12 Ricki Keene DO is Attending Physician. ms3 08:13 Triage completed. ll1 08:18 Peyton Reed, RN is Primary Nurse. ph 08:18 Patient has correct armband on for positive identification. Bed in low position. Call ph light in reach. Side rails up X 1. Pulse ox on. NIBP on. 08:25 Inserted saline lock: 22 gauge in left antecubital area, using aseptic technique. ph ,using aseptic technique. per KJ, ED-T Blood collected. 09:09 Lab(s) recollected, by me, sent to lab. Inserted saline lock: 22 gauge in right ph antecubital area, using aseptic technique. Blood collected. 09:51 CT Abd/Pelvis - IV Contrast Only In Process Unspecified. EDMS 10:17 No provider procedures requiring assistance completed. ld1 12:44 Ervin David MD is Referral Physician. ms3 13:08 IV discontinued, intact, bleeding controlled, No redness/swelling at site. ld1 Administered Medications: No medications were administered Medication: 08:19 VIS not applicable for this client. ph Outcome: 12:45 Discharge ordered by . ms3 13:08 Discharged to home ambulatory. ld1 13:08 Condition: stable 13:08 Discharge instructions given to patient, Instructed on discharge instructions, follow up and referral plans. Demonstrated understanding of instructions, follow-up care. 13:08 Patient left the ED. ld1 Signatures: Dispatcher [employer] EDDE RussellJayne tobias mr ReedPeyton, RN RN Cesar Hernández RN RN ll1 Ricki Keene DO DO ms3 Oliva Fuchs RN RN ld1 Corrections: (The following items were deleted from the chart) 08:13 08:10 BP 121 / 56; Resp 17bpm; Temp 98.2F; 56.25 kg; Height 4 ft. 10 in.; BMI: 25.9; ll1 Pain 5/10; ll1
[2022-07-01 13:34] VITALS: TEMP 98.2
[2022-07-01 13:36] VITALS: BP 165/63; O2SAT 98
== END 2022-07-01 13:08 | disposition home or self-care (01) ==
LOC: ER 07:57
DX: D64.9 Anemia, unspecified (principal); R19.7 Diarrhea, unspecified; I10 Essential (primary) hypertension; I50.9 Heart failure, unspecified; Z88.1 Allergy status to other antibiotic agents; Z91.011 Allergy to milk products
CPT/HCPCS: 85025; 36415; 87324; 83690; 80053; 74177; 99284; Q9967

== ENCOUNTER 2022-08-06 11:43 | Observation (INO) | payer OTHER ==
--- OUTSIDE RECORDS SUMMARY | 2022-08-06 12:48 | XMS REPORT | Continuity of Care Document ---
:1950 Author Organization [facility] t Address [address] [place] [address] Care Team Providers Name Role Phone SILVIO PRICE Attending Clinician Unavailable IEK SAWYER Attending Clinician Unavailable Ike Sawyer Attending Clinician Silvio Price Jr Attending Clinician Hamlet Nance Attending Clinician Ervin Delcid Attending Clinician IKE SAWYER Admitting Clinician Unavailable Ike Sawyer Admitting Clinician Silvio Price Jr Admitting Clinician Hamlet Nance Admitting Clinician [phone] Ervin Delcid Admitting Clinician Problems Condition Condition Condition Status Onset Resolution Last Treating Co mments Source Name Details Category Date Date Treatment Clinician Date Z01.818 - Z01.818 - Diagnosis Active 2021-01-08 Memoria ENCOUNTER ENCOUNTER - 14:43:00 l FOR OTHER FOR OTHER 00:01: Tiarra collins PREPROCEDU PREPROCEDU 00 Active 01/08/2021 TRACEE Velázquez CAROTID CAROTID Diagnosis Active 2021-01-17 Memoria STENOSIS STENOSIS - 21:38:00 l Active 00:00: Jesús 12/15/2020 00 [facility] N/A N/A Diagnosis Active 2021-01-13 Mem oria Active 12-15 06:56:00 l 12/15/2020 00:00: Kishore rubio 00 [facility] I10 - I10 - Diagnosis Active 2020-10-24 Mem oria ESSENTIAL ESSENTIAL 10-24 14:46:00 l (PRIMARY) (PRIMARY) 00:01: Herm karina HYPERTENSI HYPERTENSI 00 Active 10/24/2020 [facility] PICC LINE PICC LINE Diagnosis Active 2020-09-18 Memoria INSERTION INSERTION 15 11:38:00 l /// 25.118 /// 25.118 00:00: He rmann Active 00 09/08/2020 [facility] Z95.820 Z95.820 Diagnosis Active 2019-10-14 Memoria PERIPHERAL PERIPHERAL 3-04 15:20:00 l VASCULAR VASCULAR 00:00: Kishore rubio ANGIOPLAST ANGIOPLAST 00 Y Y Active 08/29/2019 [facility] Z95.820 Z95.820 Diagnosis Active 2017-062018-06-13 Memoria Active 08-09 11:29:00 l 06/08/2018 00:00: Kishore rubio 00 [facility] ATHEROSCLE Diagnosis Active 2017-11-16 Memoria ROSIS OF ATHEROSCLE 11-11 16:01:00 l [place] ROSIS OF 00:00: Jes[place]s ARTERIES [place] 00 OF EX ARTERIES OF EX Active 11/11/2017 [facility] ABDOMINAL ABDOMINAL Diagnosis Active 2017-11-04 Memoria PAIN PAIN 07 09:15:00 l Active 00:00: [place] 10/31/2017 00 [facility] 789.0 - 789.0 - Diagnosis Active 2017-12-14 Memoria ABDOMINAL ABDOMINAL 5- 09:38:00 l PAIN PAIN 00:01: [place] Active 00 10/28/2017 [facility] [place] Z95.820 - Z95.820 - Diagnosis Active 2016-12-13 Memoria PERIPHERAL PERIPHERAL 5-12 16:13:00 l VASCULAR VASCULAR 00:01: Kishore rubio ANGIOPLAST ANGIOPLAST 00 Active 11/05/2016 [facility] [place] Z45.2 Z45.2 Diagnosis Active 2015-12-08 Mem oria Active 12-02 08:55:00 l 12/03/2015 00:00: Kishore n 00 [facility] Z00.00 - Z00.00 - Diagnosis Active 2016-01-01 Memoria ENCNTR FOR ENCNTR FOR 11-27 16:15:00 l GENERAL GENERAL 00:01: Jesús ADULT ADULT 00 MEDIC MEDIC Active 11/28/2015 [facility] [place] Z00 - Z00 - Diagnosis Active 2016-01-01 Mem oria ENCNTR FOR ENCNTR FOR 11-18 16:25:00 l GENERAL GENERAL 00:01: [place] EXAM W/O EXAM W/O 00 CO CO Active 11/19/2015 [facility] Femoral-po Femoral-p Problem Active 2021-01-16 Memoria pliteal opliteal 02-06 22:15:47 l artery artery 00:00: Jesús bypass bypass 00 graft graft (procedure (procedure ) ) Active 02/06/2014 Problem 01/16/2021 [facility] 443.9 443.9 Diagnosis Active 2014-02-20 Mem oria Active 01-09 21:44:00 l 01/09/2014 00:00: Kishore n [address] 443.9, 443.9, Diagnosis Active 2013-12-12 Me moria 440.20 440.20 12-10 08:00:00 l Active 00:00: Jesús 12/10/2013 00 [facility] 447.1, 447.1, Diagnosis Active 2013-11-08 M emoria 433.10 433.10 10-23 15:38:00 l ATTN : ATTN : 00:00: Jesús SUBCLAVIAN SUBCLAVIAN 00 / / Active 10/23/2013 [facility] Incision Incision Problem Active 2021-01-16 Memoria of of 02-21 22:15:47 l mediastinu mediastinu 00:00: Jonas simmons m m 00 (procedure (procedure ) ) Active 02/21/2013 Problem 01/16/2021 [facility] Mediastino Mediastin Problem Active 2013-03-04 Memoria faheem otomy 02-21 20:24:16 l Active 00:00: [place] 02/21/2013 00 Problem 03/04/2013 [facility] SUBCLAVIAN SUBCLAVIA Diagnosis Active 2013-03-06 [facility] STENOSIS N STENOSIS 02-01 21:51:00 l Active 00:00: [place] 02/01/2013 00 [facility] SUPLAVIAN SUPLAVIAN Diagnosis [facility], 01-02 08:49:00 l DX- DX- 00:00: Jesús SUBCLAVIAN SUBCLAVIAN 00 S STNOSI S STNOSI Active 01/02/2013 [facility] Bronchiect Bronchiec Problem 2019-01-01 Memoria asis, tasis, 11:17:24 l uncomplica uncomplica He rmann matteo matteo 01/01/2019 [facility] Peripheral Periphera Problem 2019-01-01 Memoria vascular l vascular 11:17:24 l disease, disease, Kishore n unspecifie unspecifie d d 01/01/2019 [facility] Atheroscle Atheroscl Problem 2017-11-21 [facility] erosis of 01:08:22 l agdaagux agdaagux [place] arteries arteries of of [facility] s with s with intermitte intermitte nt nt claudicati claudicati on, on, bilateral bilateral legs legs 11/21/2017 [facility] Thyroid Thyroid Problem Inactiv 2013-03-04 [facility] disease disease e 20:24:16 l Inactive [place]s Problem 03/04/2013 [facility] Anemia Anemia Problem Resolve 2021-01-16 Mem oria (disorder) (disorder) d 22:15:47 l Resolved [place] Problem 01/16/2021 H/O BLOOD TRANSFUSIO N [facility] Angina Angina Problem Resolve 2021-01-16 Mem oria (disorder) (disorder) d 22:15:47 l Resolved [place] Problem 01/16/2021 [facility] Coronary Coronary Problem Resolve 2021-01-16 Memoria arterioscl arterioscl d 22:15:47 l erosis erosis [place] (disorder) (disorder) Resolved Problem 01/16/2021 [facility] 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 Memoria tumor of tumor of d 22:15:47 l cervix cervix [place] (disorder) (disorder) Resolved Problem 01/16/2021 [facility] Disorder Disorder Problem Resolve 2021-01-16 Memoria of carotid of carotid d 22:15:47 l artery artery [place] (disorder) (disorder) Resolved Problem 01/16/2021 [facility] Fracture Fracture Problem Resolve 2021-01-16 Memoria of bone of bone d 22:15:47 l (disorder) (disorder) He rmann Resolved Problem 01/16/2021 [facility] Cerebrovas Cerebrova Problem Resolve 2021-01-16 Memoria cular scular d 22:15:47 l accident accident Kishore n (disorder) (disorder) [facility] Disease of Disease Problem Resolve 2021-01-16 Memoria thyroid of thyroid d 22:15:47 l gland gland [place] (disorder) (disorder) Resolved Problem 01/16/2021 [facility] Myocardial Myocardia Problem Resolve 2021-01-16 Memoria infarction l d 22:15:47 l (disorder) infarction He rmann (disorder) Resolved Problem 01/16/2021 [facility] Anemia Anemia Problem Resolve 2013-03-04 Mem oria Resolved d 20:24:16 l Problem [place] 03/04/2013 <sup>1</durham p>H/O BLOOD TRANSFUSIO N [facility] Angina Angina Problem Resolve 2013-03-04 Mem oria Resolved d 20:24:16 l Problem Jesús 03/04/2013 [facility] CAD - CAD - Problem Resolve 2013-03-04 Hossein diana Coronary Coronary d 20:24:16 l artery artery Jesús disease disease Resolved Problem 03/04/2013 [facility] Cancer of Cancer of Problem Resolve 2013-03-04 Memoria cervix cervix d 20:24:16 l Resolved [place] Problem 03/04/2013 [facility] Carotid Carotid Problem Resolve 2013-03-04 M emoria artery artery d 20:24:16 l disease disease Jesús Resolved Problem 03/04/2013 [facility] Fracture Fracture Problem Resolve 2013-03-04 Memoria Resolved d 20:24:16 l Problem Jesús 03/04/2013 [facility] Hyperchole Hyperchol Problem Active 2021-01-16 Memoria sterolemia esterolemi 22:15:47 l (disorder) a Kishore n (disorder) Active Problem 01/16/2021 [facility] Dyspnea on Dyspnea Problem Active 2021-01-16 Memoria exertion on 22:15:47 l (finding) exertion Lilian nn (finding) Active Problem 01/16/2021 [facility] Subclavian Subclavia Problem Active 2021-01-16 Memoria artery n artery 22:15:47 l stenosis stenosis Kishore n (disorder) (disorder) Active Problem 01/16/2021 [facility] Peripheral Periphera Problem Active 2021-01-16 Memoria vascular l vascular 22:15:47 l disease disease [place] (disorder) (disorder) Active Problem 01/16/2021 [facility] HYPOTENSIO HYPOTENSI Problem Active 2014-02-12 Memoria N(Confirme ON(Confirm 18:26:32 l d) ed) Active Kishore n Problem 02/12/2014 [facility] Hyperchole Problem Active 2013-03-04 M emoria sterolemia Hyperchole 20:24:16 l sterolemia Kishore n Active Problem 03/04/2013 [facility] HYPOTENSIO HYPOTENSI Problem Active 2013-03-04 Memoria N ON Active 20:24:16 l Problem Jesús 03/04/2013 [facility] SOBOE - SOBOE - Problem Active 2013-03-04 Me moria Shortness Shortness 20:24:16 l of breath of breath Herm karina on on exertion exertion Active Problem 03/04/2013 [facility] Subclavian Subclavia Problem Active 2013-03-04 Memoria artery n artery 20:24:16 l stenosis stenosis Kishore n Active Problem 03/04/2013 [facility] OCCLUSION OCCLUSION Diagnosis Active 2021-01-17 Memoria AND AND 21:38:00 l STENOSIS STENOSIS Kishore n OF OF BILATERAL BILATERAL XIAO XIAO Active [facility] SUBCLAVIAN SUBCLAVIA Diagnosis Active 2013-03-06 Memoria ANEURYSM N ANEURYSM 21:51:00 l Active Kishore rubio [facility] PERIPH PERIPH Diagnosis Active 2014-02-20 Me moria VASCULAR VASCULAR 21:44:00 l DIS NOS DIS NOS Jesús Active [facility] ATHSCL ATHSCL Diagnosis Active 2017-11-16 M emoria [place] 16:01:00 l ARTERIES ARTERIES Kishore n OF EXTRM W OF EXTRM W INTRMT INTRMT Active [facility] History of Past Illness Condition Condition Condition Status Onset Resolution Last Treating Co mments Source Name Details Category Date Date Treatment Clinician Date Peripheral Periphera Problem 2017-062019-01-01 2019-01-01 Memoria vascular l vascular 08-19 11:17:24 11:17:24 l angioplast angioplast 03:45: He rmann y status y status 24 with with implants implants and grafts and grafts 06/18/2018 01/01/2019 [facility] Allergies, Adverse Reactions, Alerts Allergy Allergy Status Severity Reaction(s) Onset Inactive Treating Comm ents Source Name Type Date Date Clinician eddy torresaquin Active 2002-06 Memori a and and 1-07 l deriviti deriviti 00:00: Kishore n ves ves 00 codeine codeine Active 2002-06 Memoria 1-07 l 00:00: Jesús 00 morphine morphine Active 2002-06 Memori a 1-07 l 00:00: [place] 00 Propacet Propacet Active 2002-06 Memori a 1-07 l 00:00: [place] 00 Adhesive Adhesive Active Memori a Tape Tape l [place] Social History Social Habit Start Date Stop Date Quantity Comments Source Social History 2020-10-22 2020-10-22 [facility] [place] 19:48:47 19:48:47 Medications Ordered Filled Start Stop Current Ordering Indication Dosage Frequency Signature Comments Components Source Medication Medication Date Date Medication? Clinician (SIG) Name Name amLODIPine Yes 5 mg = 1 Mem oria 5 mg oral 7-21 tab, PO, l tablet 17:59: Daily, # [place] 00 30 tab, 0 Refill(s) amLODIPine Yes 5 mg = 1 Mem oria 5 mg oral 7-21 tab, PO, l tablet 17:59: Daily, # Jes[place]s 00 30 tab, 0 Refill(s) amLODIPine Yes 5 mg = 1 Mem oria 5 mg oral 7-21 tab, PO, l tablet 17:59: Daily, # [place] 00 30 tab, 0 Refill(s) amLODIPine Yes 5 mg = 1 Mem oria 5 mg oral 7-21 tab, PO, l tablet 17:59: Daily, # [place] 00 30 tab, 0 Refill(s) amLODIPine Yes 5 mg = 1 Mem oria 5 mg oral 7-21 tab, PO, l tablet 17:59: Daily, # Jes[place]s 00 30 tab, 0 Refill(s) amLODIPine Yes 5 mg = 1 Mem oria 5 mg oral 7-21 tab, PO, l tablet 17:59: Daily, # [place] 00 30 tab, 0 Refill(s) Aspirin 81 No Notes: Do Me moria MG Enteric 7-21 not crush l Coated 17:37: or chew. Jesús Tablet 00 (Same As: Ecotrin) clopidogrel No Notes: Hossein diana 7-21 (Same As: l 17:37: Plavix) [place] Aspirin 81 No Notes: Do Me moria MG Enteric 7-21 not crush l Coated 17:37: or chew. Jesús Tablet 00 (Same As: Ecotrin) clopidogrel No Notes: Hossein diana 7-21 (Same As: l 17:37: Plavix) Jesús Aspirin 81 No Notes: Do Me moria MG Enteric 7-21 not crush l Coated 17:37: or chew. [place] Tablet 00 (Same As: Ecotrin) clopidogrel No Notes: Hossein diana 7-21 (Same As: l 17:37: Plavix) [place] Aspirin 81 No Notes: Do Me moria MG Enteric 7-21 not crush l Coated 17:37: or chew. [place] Tablet 00 (Same As: Ecotrin) clopidogrel No Notes: Hossein diana 7-21 (Same As: l 17:37: Plavix) Jesús Aspirin 81 No Notes: Do Me moria MG Enteric 7-21 not crush l Coated 17:37: or chew. [place] Tablet 00 (Same As: Ecotrin) clopidogrel No Notes: Hossein diana 7-21 (Same As: l 17:37: Plavix) Jesús Aspirin 81 No Notes: Do Me moria MG Enteric 7-21 not crush l Coated 17:37: or chew. Jesús Tablet 00 (Same As: Ecotrin) clopidogrel No Notes: Hossein diana 7-21 (Same As: l 17:37: Plavix) cephalexin 2020-0 Yes 500 mg = 1 M emoria 500 mg oral 7-21 cap, PO, l capsule 17:08: TID, X 5 Kishore n 00 day, # 15 cap, 0 Refill(s) cephalexin 2020-0 Yes 500 mg = 1 M emoria 500 mg oral 7-21 cap, PO, l capsule 17:08: TID, X 5 Kishore n 00 day, # 15 cap, 0 Refill(s) cephalexin 2020-0 Yes 500 mg = 1 M emoria 500 mg oral 7-21 cap, PO, l capsule 17:08: TID, X 5 Kishore n 00 day, # 15 cap, 0 Refill(s) cephalexin 2020-0 Yes 500 mg = 1 M emoria 500 mg oral 7-21 cap, PO, l capsule 17:08: TID, X 5 Kishore n 00 day, # 15 cap, 0 Refill(s) cephalexin 2020-0 Yes 500 mg = 1 M emoria 500 mg oral 7-21 cap, PO, l capsule 17:08: TID, X 5 Kishore n 00 day, # 15 cap, 0 Refill(s) cephalexin 2020-0 Yes 500 mg = 1 M emoria [...] ia 7-21 (Same as: l 14:35: Norvasc) Jesús POLYETHYLEN No Notes: Hossein diana E GLYCOL 7-21 Dissolve l 3350 14:00: in 8 oz of [place] 00 water or juice. (Same as: Miralax) POLYETHYLEN No Notes: Hossein diana E GLYCOL 7-21 Dissolve l 3350 14:00: in 8 oz of [place] 00 water or juice. (Same as: Miralax) POLYETHYLEN No Notes: Hossein diana E GLYCOL 7-21 Dissolve l 3350 14:00: in 8 oz of [place] 00 water or juice. (Same as: Miralax) POLYETHYLEN No Notes: Hossein diana E GLYCOL 7-21 Dissolve l 3350 14:00: in 8 oz of Jesús 00 water or juice. (Same as: Miralax) POLYETHYLEN No Notes: Hossein diana E GLYCOL 7-21 Dissolve l 3350 14:00: in 8 oz of [place] 00 water or juice. (Same as: Miralax) POLYETHYLEN No Notes: Hossein diana E GLYCOL 7-21 Dissolve l 3350 14:00: in 8 oz of Jesús 00 water or juice. (Same as: Miralax) clopidogrel Yes 75 mg = 1 M emoria 75 MG Oral 7-21 tab, PO, l Tablet 12:55: Daily, # [place] [Plavix] 00 90 tab, 0 Refill(s), Pharmacy: [facility] #[id number], 149.86, cm, 01/08/21 13:20:00 CDT, Height, 62.091, kg, 01/08/21 13:20:00 CDT, Weight tramadol Yes 50 mg = 1 Hossein diana hydrochlori 7-21 tab, PO, l de 50 MG 12:55: Q6H, PRN Lilian nn Oral Tablet 00 Pain, X 5 day, # 18 tab, 0 Refill(s), Pharmacy: [facility] #[id number], 149.86, cm, 01/08/21 13:20:00 CDT, Height, 62.091, kg, 01/08/21 13:20:00 CDT, Weight clopidogrel 1-0 Yes 75 mg = 1 M emoria 75 MG Oral 7-21 tab, PO, l Tablet 12:55: Daily, # Jesús [Plavix] 00 90 tab, 0 Refill(s), Pharmacy: [facility] ([facility] #[id number], 149.86, cm, 01/08/21 13:20:00 CDT, Height, 62.091, kg, 01/08/21 13:20:00 CDT, Weight tramadol 1-0 Yes 50 mg = 1 Hossein diana hydrochlori 7-21 tab, PO, l de 50 MG 12:55: Q6H, PRN Lilian nn Oral Tablet 00 Pain, X 5 day, # 18 tab, 0 Refill(s), Pharmacy: [facility] ([facility] #[id number], 149.86, cm, 01/08/21 13:20:00 CDT, Height, 62.091, kg, 01/08/21 13:20:00 CDT, Weight clopidogrel 1-0 Yes 75 mg = 1 M emoria 75 MG Oral 7-21 tab, PO, l Tablet 12:55: Daily, # Jesús [Plavix] 00 90 tab, 0 Refill(s), Pharmacy: [facility] ([facility] #[id number], 149.86, cm, 01/08/21 13:20:00 CDT, Height, 62.091, kg, 01/08/21 13:20:00 CDT, Weight tramadol 1-0 Yes 50 mg = 1 Hossein diana hydrochlori 7-21 tab, PO, l de 50 MG 12:55: Q6H, PRN Lilian nn Oral Tablet 00 Pain, X 5 day, # 18 tab, 0 Refill(s), Pharmacy: [facility] ([facility] #[id number], 149.86, cm, 01/08/21 13:20:00 CDT, Height, 62.091, kg, 01/08/21 13:20:00 CDT, Weight clopidogrel 2021-0 Yes 75 mg = 1 M emoria 75 MG Oral 7-21 tab, PO, l Tablet 12:55: Daily, # Jesús [Plavix] 00 90 tab, 0 Refill(s), Pharmacy: [facility] ([facility] #[id number], 149.86, cm, 01/08/21 13:20:00 CDT, Height, 62.091, kg, 01/08/21 13:20:00 CDT, Weight tramadol 1-0 Yes 50 mg = 1 Hossein diana hydrochlori 7-21 tab, PO, l de 50 MG 12:55: Q6H, PRN Lilian nn Oral Tablet 00 Pain, X 5 day, # 18 tab, 0 Refill(s), Pharmacy: [facility] ([facility] #[id number], 149.86, cm, 01/08/21 13:20:00 CDT, Height, 62.091, kg, 01/08/21 13:20:00 CDT, Weight clopidogrel 1-0 Yes 75 mg = 1 M emoria 75 MG Oral 7-21 tab, PO, l Tablet 12:55: Daily, # Jesús [Plavix] 00 90 tab, 0 Refill(s), Pharmacy: [facility] ([facility] #[id number], 149.86, cm, 01/08/21 13:20:00 CDT, Height, 62.091, kg, 01/08/21 13:20:00 CDT, Weight tramadol 1-0 Yes 50 mg = 1 Hossein diana hydrochlori 7-21 tab, PO, l de 50 MG 12:55: Q6H, PRN Lilian nn Oral Tablet 00 Pain, X 5 day, # 18 tab, 0 Refill(s), Pharmacy: [facility] ([facility] #[id number], 149.86, cm, 01/08/21 13:20:00 CDT, Height, 62.091, kg, 01/08/21 13:20:00 CDT, Weight clopidogrel 2021-0 Yes 75 mg = 1 M emoria 75 MG Oral 7-21 tab, PO, l Tablet 12:55: Daily, # Jesús [Plavix] 00 90 tab, 0 Refill(s), Pharmacy: [facility] ([facility] #[id number], 149.86, cm, 01/08/21 13:20:00 CDT, Height, 62.091, kg, 01/08/21 13:20:00 CDT, Weight tramadol 2021-0 Yes 50 mg = 1 Hossein diana hydrochlori 7-21 tab, PO, l de 50 MG 12:55: Q6H, PRN Lilian nn Oral Tablet 00 Pain, X 5 day, # 18 tab, 0 Refill(s), Pharmacy: [facility] #[id number], 149.86, cm, 01/08/21 13:20:00 CDT, Height, 62.091, kg, 01/08/21 13:20:00 CDT, Weight Thyroxine No Notes: Memori a 7-21 Take 1 l 11:30: hour Jesús 00 before or 2 hours after meal; Enteral feeds may interefere with the absorption of this medication . (Same as:Synthro id, Levothroid ) Thyroxine No Notes: Memori a 7-21 Take 1 l 11:30: hour [place] 00 before or 2 hours after meal; Enteral feeds may interefere with the absorption of this medication . (Same as:Synthro id, Levothroid ) Thyroxine No Notes: Memori a 7-21 Take 1 l 11:30: hour [place] 00 before or 2 hours after meal; Enteral feeds may interefere with the absorption of this medication . (Same as:Synthro id, Levothroid ) Thyroxine No Notes: Memori a 7-21 Take 1 l 11:30: hour Jesús 00 before or 2 hours after meal; Enteral feeds may interefere with the absorption of this medication . (Same as:Synthro id, Levothroid ) Thyroxine No Notes: Memori a 7-21 Take 1 l 11:30: hour Jesús 00 before or 2 hours after meal; Enteral feeds may interefere with the absorption of this medication . (Same as:Synthro id, Levothroid ) Thyroxine No Notes: Memori a 7-21 Take 1 l 11:30: hour [place] 00 before or 2 hours after meal; Enteral feeds may interefere with the absorption of this medication . (Same as:Synthro id, Levothroid ) Simvastatin No Notes: Hossein diana 7-21 (Same as: l 02:00: Zocor) Jesús 00 Famotidine No Notes: Memor ia 7- (Same as: l 02:00: Pepcid) [place] 00 Saline No Notes: Memoria Flush 0.9% 7-21 Same as: l 02:00: BD Jesús Posiflush Sterile gabapentin No Notes: Memor ia 7-21 (Same as: l 02:00: Neurontin) Melatonin No Notes: Memori a 7-21 (Same as: l 02:00: Melatonin) Simvastatin No Notes: Hossein diana 7-21 (Same as: l 02:00: Zocor) Famotidine No Notes: Memor ia 7-21 (Same as: l 02:00: Pepcid) Saline No Notes: Memoria Flush 0.9% 7-21 Same as: l 02:00: BD Jesús Posiflush Sterile gabapentin No Notes: Memor ia 7-21 (Same as: l 02:00: Neurontin) Melatonin No Notes: Memori a 7-21 (Same as: l 02:00: Melatonin) Simvastatin No Notes: Hossein diana 7-21 (Same as: l 02:00: Zocor) Famotidine No Notes: Memor ia 7-21 (Same as: l 02:00: Pepcid) Saline No Notes: Memoria Flush 0.9% 7-21 Same as: l 02:00: BD Jesús Posiflush Sterile gabapentin No Notes: Memor ia 7-21 (Same as: l 02:00: Neurontin) Melatonin No Notes: Memori a 7-21 (Same as: l 02:00: Melatonin) Simvastatin No Notes: Hossein diana 7-21 (Same as: l 02:00: Zocor) Famotidine No Notes: Memor ia 7-21 (Same as: l 02:00: Pepcid) Jesús 00 Saline No Notes: Memoria Flush 0.9% 7-21 Same as: l 02:00: BD [place] 00 Posiflush Sterile gabapentin No Notes: Memor ia 7-21 (Same as: l 02:00: Neurontin) Melatonin No Notes: Memori a 7-21 (Same as: l 02:00: Melatonin) Simvastatin No Notes: Hossein diana 7-21 (Same as: l 02:00: Zocor) Famotidine No Notes: Memor ia 7-21 (Same as: l 02:00: Pepcid) Saline No Notes: Memoria Flush 0.9% 7-21 Same as: l 02:00: BD Jesús 00 Posiflush Sterile gabapentin No Notes: Memor ia [...] a 7-20 (Same as: l 23:21: Normodyne, [place] 00 Trandate) Push over 2 minutes Give bolus over 2-3 minutes. Labetalol No Notes: Memori a 7-20 (Same as: l 23:21: Normodyne, [place] 00 Trandate) Push over 2 minutes Give bolus over 2-3 minutes. Labetalol No Notes: Memori a 7-20 (Same as: l 23:21: Normodyne, [place] 00 Trandate) Push over 2 minutes Give bolus over 2-3 minutes. Labetalol No Notes: Memori a 7-20 (Same as: l 23:21: Normodyne, [place] 00 Trandate) Push over 2 minutes Give bolus over 2-3 minutes. Labetalol No Notes: Memori a 7-20 (Same as: l 23:21: Normodyne, [place] 00 Trandate) Push over 2 minutes Give bolus over 2-3 minutes. Labetalol No Notes: Memori a 7-20 (Same as: l 23:21: Normodyne, Jesús 00 Trandate) Push over 2 minutes Give bolus over 2-3 minutes. Hydralazine No Notes: Hossein diana 7-20 (Same as: l 21:17: Apresoline Jesús ) Push over 5 minutes Hydralazine No Notes: Hossein diana 7-20 (Same as: l 21:17: Apresoline [place] ) Push over 5 minutes Hydralazine No Notes: Hossein diana 7-20 (Same as: l 21:17: Apresoline [place] 00 ) Push over 5 minutes Hydralazine No Notes: Hossein diana 7-20 (Same as: l 21:17: Apresoline Jesús 00 ) Push over 5 minutes Hydralazine No Notes: Hossein diana 7-20 (Same as: l 21:17: Apresoline Jesús 00 ) Push over 5 minutes Hydralazine No Notes: Hossein diana 7-20 (Same as: l 21:17: Apresoline [place] 00 ) Push over 5 minutes Hydralazine No Notes: Hossein diana 7-20 (Same as: l 21:11: Apresoline Jesús 00 ) May interfere w/enteral feedings. Take With Food Amlodipine No Notes: Memor ia 7-20 (Same as: l 21:11: Norvasc) [place] 00 Hydralazine No Notes: Hossein diana 7-20 (Same as: l 21:11: Apresoline [place] ) May interfere w/enteral feedings. Take With Food Amlodipine No Notes: Memor ia 7-20 (Same as: l 21:11: Norvasc) Jesús 00 Hydralazine 2020-0 No Notes: Hossein diana 7-20 (Same as: l 21:11: Apresoline [place] 00 ) May interfere w/enteral feedings. Take With Food Amlodipine 2020-0 No Notes: Memor ia 7-20 (Same as: l 21:11: Norvasc) Jesús Hydralazine 2020-0 No Notes: Hossein diana 7-20 (Same as: l 21:11: Apresoline Jesús 00 ) May interfere w/enteral feedings. Take With Food Amlodipine 2020-0 No Notes: Memor ia 7-20 (Same as: l 21:11: Norvasc) Jesús Hydralazine 0 No Notes: Hossein diana 7-20 (Same as: l 21:11: Apresoline Jesús ) May interfere w/enteral feedings. Take With Food Amlodipine 2020-0 No Notes: Memor ia 7-20 (Same as: l 21:11: Norvasc) Jes[place]s Hydralazine 0 No Notes: Hossein diana 7-20 (Same as: l 21:11: Apresoline [place] ) May interfere w/enteral feedings. Take With Food Amlodipine 2020-0 No Notes: Memor ia 7-20 (Same as: l 21:11: Norvasc) [place] ceFAZolin + 2020-0 No Notes: Hossein diana sterile 7-20 (Same As: l water 20 mL 21:00: Ancef, Herm karina 00 Kefzol) MEDICATION WASTE Product Size: 1000 mg Product Wasted: ___ mg ceFAZolin + 2020-0 No Notes: Hossein diana sterile 7-20 (Same As: l water 20 mL 21:00: Ancef, Herm karina 00 Kefzol) MEDICATION WASTE Product Size: 1000 mg Product Wasted: ___ mg ceFAZolin + 2020-0 No Notes: Hossein diana sterile 7-20 (Same [...] Notes: Hossein diana en 325 MG / 20 (Same as: l Hydrocodone 16:57: Mifflin Lilian nn Bitartrate 00 325/5) Do 5 MG Oral not exceed Tablet 4gm/day of [[place] acetaminop 5/325] hen. Acetaminoph No Notes: Hossein diana en 325 MG / 20 (Same as: l Hydrocodone 16:57: [place] Lilian nn Bitartrate 00 325/5) Do 5 MG Oral not exceed Tablet 4gm/day of [[place] acetaminop 5/325] hen. Acetaminoph No Notes: Hossein diana en 325 MG / 20 (Same as: l Hydrocodone 16:57: [place]if[place] Lilian nn Bitartrate 00 325/5) Do 5 MG Oral not exceed Tablet 4gm/day of [[place] acetaminop 5/325] hen. Acetaminoph No Notes: Hossein diana en 325 MG / -20 (Same as: l Hydrocodone 16:57: [place]if[place] Lilian nn Bitartrate 00 325/5) Do 5 MG Oral not exceed Tablet 4gm/day of [[place] acetaminop 5/325] hen. Acetaminoph No Notes: Hossein diana en 325 MG / -20 (Same as: l Hydrocodone 16:57: [place] Lilian nn Bitartrate 00 325/5) Do 5 MG Oral not exceed Tablet 4gm/day of [[place] acetaminop 5/325] hen. Acetaminoph 2020-0 No Notes: Hossein diana en 325 MG / 7-20 (Same as: l Hydrocodone 16:57: [place] Lilian nn Bitartrate 00 325/5) Do 5 MG Oral not exceed Tablet 4gm/day of [[place] acetaminop 5/325] hen. Sodium 2020-0 No 1,000 mL, Memori a Chloride 7-20 Rate: 125 l 0.45% IV 16:55: ml/hr, Jesús 1,000 mL 00 Infuse over: 8 hr, Route: IV, Dosing Weight 62.091 kg, Total Volume: 1,000, Start date: 01/13/21 11:55:00 CDT, Duration: 12 hr, Stop date: 01/13/21 23:54:00 CDT, BSA: 1.63 m2, 0 Sodium 2020-0 No 1,000 mL, Memori a Chloride 7-20 Rate: 125 l 0.45% IV 16:55: ml/hr, Jesús 1,000 mL 00 Infuse over: 8 hr, Route: IV, Dosing Weight 62.091 kg, Total Volume: 1,000, Start date: 01/13/21 11:55:00 CDT, Duration: 12 hr, Stop date: 01/13/21 23:54:00 CDT, BSA: 1.63 m2, 0 Sodium 2020-0 No 1,000 mL, Memori a Chloride 7-20 Rate: 125 l 0.45% IV 16:55: ml/hr, Jesús 1,000 mL 00 Infuse over: 8 hr, Route: IV, Dosing Weight 62.091 kg, Total Volume: 1,000, Start date: 01/13/21 11:55:00 CDT, Duration: 12 hr, Stop date: 01/13/21 23:54:00 CDT, BSA: 1.63 m2, 0 Sodium 1-0 No 1,000 mL, Memori a Chloride 7-20 Rate: 125 l 0.45% IV 16:55: ml/hr, Jesús 1,000 mL 00 Infuse over: 8 hr, Route: IV, Dosing Weight 62.091 kg, Total Volume: 1,000, Start date: 01/13/21 11:55:00 CDT, Duration: 12 hr, Stop date: 01/13/21 23:54:00 CDT, BSA: 1.63 m2, 0 Sodium No 1,000 mL, Memori a Chloride 7-20 Rate: 125 l 0.45% IV 16:55: ml/hr, [place] 1,000 mL 00 Infuse over: 8 hr, [...] 23:54:00 CDT, BSA: 1.63 m2, 0 gabapentin No Notes: Memor ia 7-20 (Same as: l 16:54: Neurontin) Tramadol No Notes: Not Mem oria 7-20 to exceed l 16:54: 400mg/day. Jesús (Same As: Ultram) gabapentin No Notes: Memor ia 7-20 (Same as: l 16:54: Neurontin) Tramadol No Notes: Not Mem oria 7-20 to exceed l 16:54: 400mg/day. [place] (Same As: Ultram) gabapentin No Notes: Memor ia 7-20 (Same as: l 16:54: Neurontin) Tramadol No Notes: Not Mem oria 7-20 to exceed l 16:54: 400mg/day. Jesús (Same As: Ultram) gabapentin No Notes: Memor [...] 7-20 (Same as: l / 16:51: Duoneb) [place] Ipratropium 00 [place] 0.167 MG/ML Inhalant Solution Saline No Notes: Memoria Flush 0.9% 7-20 Same as: l 16:51: BD Jesús 00 Posiflush Sterile Potassium No Notes: Memori a Chloride 7-20 (Same as: l 16:51: KCL) 10 Jesús 00 mEq/100ml product recommende d for peripheral line administra tion. Infuse no faster than 10 mEq/hr if given peripheral ly. sodium No Notes: Memoria phosphate 7-20 Infuse l 16:51: over 4 Jesús 00 hour. Do not [...] 7-20 (Same as: l odium 16:51: Phos-NaK) [place] phosphate 00 Each 1.5 250 mg-280 gm pkt has mg-160 mg 250mg oral powder phosphorou for s. Mix reconstitut w/2.5oz ion water and stir. Magnesium No Notes: Memori a Sulfate 7-20 WASTE: F/P l 16:51: - Sink; E - Municipal Trash Bin Magnesium No Notes: Memori a Oxide 7-20 (Same as: l 16:51: Mag-Ox Jesús 00 400) Magnesium oxide 048vo=952k g elemental magnesium Dose=____m g magnesium oxide (___mg elemental magnesium) Calcium No Notes: Memoria Gluconate 7-20 WASTE: F/P l 16:51: - Sink; E [place] [facility] Trash Bin calcium No Notes: Memoria carbonate 7-20 (Same As: l 500 mg (200 16:51: Tums) Lilian nn mg 00 Calcium elemental Carbonate calcium) 500 mg = oral tablet 200 mg elemental calcium Dose = mg calcium carbonate ( mg elemental calcium) Acetaminoph No 100.4 F, M emoria en 7-20 Start l 16:51: date: Jesús 00 01/13/21 11:51:00 CDT, Duration: 30 day, Stop date: 02/12/21 11:50:00 CDT Albuterol No Notes: Memori a 0.833 MG/ML 7-20 (Same as: l / 16:51: Duoneb) Ipratropium 00 [place] 0.167 MG/ML Inhalant Solution Saline No Notes: Memoria Flush 0.9% 7-20 Same as: l 16:51: BD Posiflush Sterile Potassium No Notes: Memori a Chloride 7-20 (Same as: l 16:51: KCL) 10 [place] 00 mEq/100ml product recommende d for peripheral line administra tion. Infuse no faster than 10 mEq/hr if given peripheral ly. sodium No Notes: Memoria phosphate 7-20 Infuse l 16:51: over 4 [place] 00 hour. Do not infuse phosphorou s concurrent ly in the same line as TPN or IVF that contains calcium. For double lumen central lines, phosphorou s may be infused in a separate lumen from TPN. potassium No Notes: Memori a phosphate 7-20 (Same as: l 16:51: K Jesús 00 Phosphate. ) Do not [...] Oxide 7-20 (Same as: l 16:51: Mag-Ox [place] 00 400) Magnesium oxide 674lt=619d g elemental magnesium Dose=____m g magnesium oxide [...] as: l / 16:51: Duoneb) Ipratropium 00 [place] 0.167 MG/ML Inhalant Solution Saline No Notes: Memoria Flush 0.9% 7-20 Same as: l 16:51: BD [place] 00 Posiflush Sterile Potassium No Notes: Memori a Chloride 7-20 (Same as: l 16:51: KCL) 10 00 mEq/100ml product recommende d for peripheral line administra tion. Infuse no faster than 10 mEq/hr if given peripheral ly. sodium No Notes: Memoria phosphate 7-20 Infuse l 16:51: over 4 [place] 00 hour. Do not infuse phosphorou s concurrent ly in the same line as TPN or IVF that contains calcium. For double lumen central lines, phosphorou s may be infused in a separate lumen from TPN. potassium No Notes: Memori a phosphate 7-20 (Same as: l 16:51: K Jesús 00 Phosphate. ) Do not infuse phosphorou s concurrent ly in the same line as TPN or IVF that contains calcium. For double lumen central lines, phosphorou s may be infused in a separate lumen from TPN. 1 mMol phoshate has 1.47 mEq potassium Infuse over 4 hours potassium No Notes: Memori a phosphate-s 7-20 (Same as: l odium 16:51: Phos-NaK) [place] phosphate 00 Each 1.5 250 mg-280 gm pkt has mg-160 mg 250mg oral powder phosphorou for s. Mix reconstitut w/2.5oz ion water and stir. Magnesium No Notes: Memori a Sulfate 01-13 WASTE: F/P l 16:51: - Sink; E - Municipal Trash Bin Magnesium No Notes: Memori a Oxide 7-20 (Same as: l 16:51: Mag-Ox 400) Magnesium oxide 216oo=967g g elemental magnesium Dose=____m g magnesium oxide [...] -20 (Same as: l / 16:51: Duoneb) [place] Ipratropium 00 [place] 0.167 MG/ML Inhalant Solution Saline No Notes: Memoria Flush 0.9% 7-20 Same as: l 16:51: BD Jesús 00 Posiflush Sterile Potassium No Notes: Memori a Chloride 7-20 (Same as: l 16:51: KCL) 10 [place] 00 mEq/100ml product recommende d for peripheral line administra tion. Infuse no faster than 10 mEq/hr if given peripheral ly. sodium No Notes: Memoria phosphate 7-20 Infuse l 16:51: over 4 [place] 00 hour. Do not infuse phosphorou s concurrent ly in the same line as TPN or IVF that contains calcium. For double lumen central lines, phosphorou s may be infused in a separate lumen from TPN. potassium No Notes: Memori a phosphate 7-20 (Same as: l 16:51: K Jesús 00 Phosphate. ) Do not infuse phosphorou s concurrent ly in the same line as TPN or IVF that contains calcium. For double lumen central lines, phosphorou s may be infused in a separate lumen from TPN. 1 mMol phoshate has 1.47 mEq potassium Infuse over 4 hours potassium No Notes: Memori a phosphate-s 7-20 (Same as: l odium 16:51: Phos-NaK) [place] phosphate 00 Each 1.5 250 mg-280 gm pkt has mg-160 mg 250mg oral powder phosphorou for s. Mix reconstitut w/2.5oz ion water and stir. Magnesium No Notes: Memori a Sulfate 7-20 WASTE: F/P l 16:51: - Sink; E - [facility] Trash Bin Magnesium No Notes: Memori a Oxide 7-20 (Same as: l 16:51: Mag-Ox [place] 00 400) Magnesium oxide 245ey=119t g elemental magnesium Dose=____m g magnesium oxide (___mg elemental magnesium) Calcium No Notes: Memoria Gluconate 7-20 WASTE: F/P l 16:51: - Sink; E Jesús 00 - [facility] Trash Bin calcium No Notes: Memoria carbonate 7-20 (Same As: l 500 mg (200 16:51: Tums) Lilian nn mg 00 Calcium elemental Carbonate calcium) 500 mg = oral tablet 200 mg elemental calcium Dose = mg calcium carbonate ( mg elemental calcium) Acetaminoph No 100.4 F, Lauren larkin en 7-20 Start l 16:51: date: 01/13/21 11:51:00 CDT, Duration: 30 day, Stop date: 02/12/21 11:50:00 CDT Albuterol No Notes: Memori a 0.833 MG/ML 7-20 (Same as: l / 16:51: Duoneb) Ipratropium 00 [place] 0.167 MG/ML Inhalant Solution Saline No Notes: Memoria Flush 0.9% 7-20 Same as: l 16:51: BD Posiflush Sterile Potassium No Notes: Memori a Chloride 7-20 (Same as: l 16:51: KCL) 10 Jesús 00 mEq/100ml product recommende d for peripheral line administra tion. Infuse no faster than 10 mEq/hr if given peripheral ly. sodium No Notes: Memoria phosphate 7-20 Infuse l 16:51: over 4 [place] 00 hour. Do not infuse phosphorou s concurrent ly in the same line as TPN or IVF that contains calcium. For double lumen central lines, phosphorou s may be infused in a separate lumen from TPN. potassium No Notes: Memori a phosphate 7-20 (Same as: l 16:51: K [place] 00 Phosphate. ) Do not infuse phosphorou s concurrent ly in the same line as TPN or IVF that contains calcium. For double lumen central lines, phosphorou s may be infused in a separate lumen from TPN. 1 mMol phoshate has 1.47 mEq potassium Infuse over 4 hours potassium No Notes: Memori a phosphate-s 7-20 (Same as: l odium 16:51: Phos-NaK) [place] phosphate 00 Each 1.5 250 mg-280 gm pkt has mg-160 mg 250mg oral powder phosphorou for s. Mix reconstitut w/2.5oz ion water and stir. Magnesium No Notes: Memori a Sulfate 7-20 WASTE: F/P l 16:51: - Sink; E - [facility] Trash Bin Magnesium No Notes: Memori a Oxide 7-20 (Same as: l 16:51: Mag-Ox [place] 00 400) Magnesium oxide 874an=987h g elemental magnesium Dose=____m g magnesium oxide (___mg elemental magnesium) Calcium No Notes: Memoria Gluconate 7-20 WASTE: F/P l 16:51: - Sink; E [place] 00 - [facility] Trash Bin calcium No [...] a 0.833 MG/ML 7-20 (Same as: l 16:51: Duoneb) Ipratropium 00 [place] 0.167 MG/ML Inhalant Solution Saline No Notes: Memoria Flush 0.9% 7-20 Same as: l 16:51: BD Posiflush Sterile Potassium No Notes: Memori a Chloride 7-20 (Same as: l 16:51: KCL) 10 Jesús 00 mEq/100ml product recommende d for peripheral line administra tion. Infuse no faster than 10 mEq/hr if given peripheral ly. sodium No Notes: Memoria phosphate 7-20 Infuse l 16:51: over 4 [place] 00 hour. Do not infuse phosphorou s concurrent ly in the same line as TPN or IVF that contains calcium. For double lumen central lines, phosphorou s may be infused in a separate lumen from TPN. potassium No Notes: Memori a phosphate 7-20 (Same as: l 16:51: K Jes[place] 00 Phosphate. ) Do not infuse phosphorou s concurrent ly in the same line as TPN or IVF that contains calcium. For double lumen central lines, phosphorou s may be infused in a separate lumen from TPN. 1 mMol phoshate has 1.47 mEq potassium Infuse over 4 hours potassium No Notes: Memori a phosphate-s -20 (Same as: l odium 16:51: Phos-NaK) [place] phosphate 00 Each 1.5 250 mg-280 gm pkt has mg-160 mg 250mg oral powder phosphorou for s. Mix reconstitut w/2.5oz ion water and stir. Magnesium No Notes: Memori a Sulfate 01-13 WASTE: F/P l 16:51: - Sink; E - [facility] Trash Bin Magnesium No Notes: Memori a Oxide 01-13 (Same as: l 16:51: Mag-Ox [place] 00 400) Magnesium oxide 539ps=240g g elemental magnesium Dose=____m g magnesium oxide (___mg elemental magnesium) Calcium No Notes: Memoria Gluconate 01-13 WASTE: F/P l 16:51: - Sink; E - [facility] Trash Bin calcium No Notes: Memoria carbonate 01-13 (Same As: l 500 mg (200 16:51: Tums) Lilian nn mg 00 Calcium elemental Carbonate calcium) 500 mg = oral tablet 200 mg elemental calcium Dose = mg calcium carbonate ( mg elemental calcium) Dilaudid No 0.5 mg, Memori a 01-13 Route: l 16:43: IVP, ONCE, Dosing Weight 62.091, kg, Priority: STAT, Start date: 01/13/21 11:43:00 CDT, Stop date: 01/13/21 11:43:00 CDT Dilaudid No 0.5 mg, Memori a 720 Route: l 16:43: IVP, ONCE, Dosing Weight [...] CDT, Stop date: 01/13/21 11:43:00 CDT norepinephr 0 No Route: IV, Memoria ine (ANES) 7-20 Drug form: l 16:08: INJ, ONCE, Stop date: 01/13/21 11:08:00 CDT niCARdipine 0 No Route: IV, Memoria (ANES) 7-20 Drug form: l 16:08: INJ, ONCE, Stop date: 01/13/21 11:08:00 CDT neostigmine 0 No Route: IV, Memoria (ANES) 7-20 Drug [...] neostigmine 2020-0 No Route: IV, Memoria (ANES) 7- Drug form: l 16:08: INJ, ONCE, Stop date: 01/13/21 11:08:00 CDT ondansetron 2020-0 No Route: IV, Memoria (ANES) 7- Drug form: l 16:08: INJ, ONCE, Stop date: 01/13/21 11:08:00 CDT norepinephr 2020-0 No Route: IV, Memoria ine (ANES) - Drug form: l 16:08: INJ, ONCE, Stop date: 01/13/21 11:08:00 CDT niCARdipine 2020-0 No Route: IV, Memoria (ANES) 7- Drug form: l 16:08: INJ, ONCE, Stop date: 01/13/21 11:08:00 CDT neostigmine 2020-0 No Route: IV, Memoria (ANES) 7- Drug form: l 16:08: INJ, ONCE, Stop date: 01/13/21 11:08:00 CDT ondansetron 2020-0 No Route: IV, Memoria (ANES) 7- [...] neostigmine 2020-0 No Route: IV, Memoria (ANES) 7- Drug form: l 16:08: INJ, ONCE, Stop date: 01/13/21 11:08:00 CDT ondansetron 2020-0 No Route: IV, Memoria (ANES) 7- [...] neostigmine 2020-0 No Route: IV, Memoria (ANES) 7- Drug form: l 16:08: INJ, ONCE, Stop date: 01/13/21 11:08:00 CDT ondansetron 2020-0 No Route: IV, Memoria (ANES) 7- Drug form: l 16:08: INJ, ONCE, Stop date: 01/13/21 11:08:00 CDT norepinephr 2020-0 No Route: IV, Memoria ine (ANES) - Drug form: l 16:08: INJ, ONCE, Stop date: 01/13/21 11:08:00 CDT niCARdipine 2020-0 No Route: IV, Memoria (ANES) 7- Drug form: l 16:08: INJ, ONCE, Stop date: 01/13/21 11:08:00 CDT neostigmine 2020-0 No Route: IV, Memoria (ANES) 7- Drug form: l 16:08: INJ, ONCE, Stop date: 01/13/21 11:08:00 CDT ondansetron No Route: IV, Memoria (ANES) 7-20 Drug form: l 16:08: INJ, ONCE, Stop date: 01/13/21 11:08:00 CDT protamine No Route: IV, Me moria (ANES) 7-20 Drug form: l 15:42: INJ, ONCE, Stop date: 01/13/21 10:42:00 CDT protamine No Route: IV, Me moria (ANES) 7-20 Drug form: l 15:42: INJ, ONCE, Stop date: 01/13/21 10:42:00 CDT protamine No Route: IV, Me moria (ANES) 7-20 Drug form: l 15:42: INJ, ONCE, Stop date: 01/13/21 10:42:00 CDT protamine No Route: IV, Me moria (ANES) 7-20 Drug form: l 15:42: INJ, ONCE, Stop date: 01/13/21 10:42:00 CDT protamine No Route: IV, Me moria (ANES) 7-20 Drug form: l 15:42: INJ, ONCE, Stop date: 01/13/21 10:42:00 CDT protamine No Route: IV, Me moria (ANES) 7-20 Drug form: l 15:42: INJ, ONCE, Stop date: 01/13/21 10:42:00 CDT niCARdipine No Route: IV, Memoria (ANES) 7-20 Drug form: l 14:41: INJ, ONCE, Stop date: 01/13/21 9:41:00 CDT niCARdipine 2020-0 No Route: IV, Memoria (ANES) 7-20 Drug form: l 14:41: INJ, ONCE, Stop date: 01/13/21 9:41:00 CDT niCARdipine No Route: IV, Memoria (ANES) 7-20 Drug form: l 14:41: INJ, ONCE, Stop date: 01/13/21 9:41:00 CDT niCARdipine 0 No Route: IV, Memoria (ANES) 7-20 Drug form: l 14:41: INJ, ONCE, Stop date: 01/13/21 9:41:00 CDT niCARdipine 0 No Route: IV, Memoria (ANES) 7-20 Drug form: l 14:41: INJ, ONCE, Stop date: 01/13/21 9:41:00 CDT niCARdipine 0 No Route: IV, Memoria (ANES) 7-20 Drug form: l 14:41: INJ, ONCE, Stop date: 01/13/21 9:41:00 CDT heparin 0 No Route: IV, Hossein diana (ANES) 7-20 Drug form: l 14:21: INJ, ONCE, Stop date: 01/13/21 9:21:00 CDT heparin 0 No Route: IV, Hossein diana (ANES) 7-20 Drug form: l 14:21: INJ, ONCE, Stop date: 01/13/21 9:21:00 CDT heparin 0 No Route: IV, Hossein diana (ANES) 7-20 Drug form: l 14:21: INJ, ONCE, Stop date: 01/13/21 9:21:00 CDT heparin 0 No Route: IV, Hossein diana (ANES) 7-20 Drug form: l 14:21: INJ, ONCE, Stop date: 01/13/21 9:21:00 CDT heparin 2020-0 No Route: IV, Hossein diana (ANES) 7-20 Drug form: l 14:21: INJ, ONCE, Stop date: 01/13/21 9:21:00 CDT heparin 2020-0 No Route: IV, Hossein diana (ANES) 7-20 Drug form: l 14:21: INJ, ONCE, Stop date: 01/13/21 9:21:00 CDT glycopyrrol 0 No Route: IV, Memoria ate (ANES) 7-20 Drug form: l 14:06: INJ, ONCE, Stop date: 01/13/21 9:06:00 CDT ePHEDrine 2020-0 No Route: IV, Me moria (ANES) 7-20 Drug form: l 14:06: INJ, ONCE, Stop date: 01/13/21 9:06:00 CDT glycopyrrol 2020-0 No Route: IV, Memoria ate (ANES) 7-20 Drug form: l 14:06: INJ, ONCE, Stop date: 01/13/21 9:06:00 CDT ePHEDrine 2020-0 No Route: IV, Me moria (ANES) 7-20 Drug form: l 14:06: INJ, ONCE, Stop date: 01/13/21 9:06:00 CDT glycopyrrol 2020-0 No Route: IV, Memoria ate (ANES) 7-20 Drug form: l 14:06: INJ, ONCE, Stop date: 01/13/21 9:06:00 CDT ePHEDrine 2020-0 No Route: IV, Me moria (ANES) 7-20 Drug form: l 14:06: INJ, ONCE, Stop date: 01/13/21 9:06:00 CDT glycopyrrol 2020-0 No Route: IV, Memoria ate (ANES) 7-20 Drug form: l 14:06: INJ, ONCE, Stop date: 01/13/21 9:06:00 CDT ePHEDrine 2020-0 No Route: IV, Me moria (ANES) 7-20 Drug form: l 14:06: INJ, ONCE, Stop date: 01/13/21 9:06:00 CDT glycopyrrol 2020-0 No Route: IV, Memoria ate (ANES) 7-20 Drug form: l 14:06: INJ, ONCE, Stop date: 01/13/21 9:06:00 CDT ePHEDrine 2020-0 No Route: IV, Me moria (ANES) 7-20 Drug form: l 14:06: INJ, ONCE, Stop date: 01/13/21 9:06:00 CDT glycopyrrol 2021-0 No Route: IV, Memoria ate (ANES) 7-20 [...] Memoria 7-20 (Same as: l 14:00: MaxEPA, [place] 3 fish oil ) Vitamin C No Notes: Memori a 7-20 (Same as: l 14:00: Vitamin C) Vitamin B12 No Notes: Hossein diana 7-20 (Same As: l 14:00: Vitamin B12) Labetalol No Notes: Memori a 7-20 With food. l 14:00: (Same as:Trandat e, Normodyne) Fish Oil No Notes: Memoria 7-20 (Same as: l 14:00: MaxEPA, [place] 3 fish oil ) Vitamin C No Notes: Memori a 7-20 (Same as: l 14:00: Vitamin C) Vitamin B12 No Notes: Hossein diana 7-20 (Same As: l 14:00: Vitamin B12) Labetalol No Notes: Memori a 7-20 With food. l 14:00: (Same as:Trandat e, Normodyne) Fish Oil No Notes: Memoria 7-20 (Same as: l 14:00: MaxEPA, [place] 3 fish oil ) Vitamin C No Notes: Memori a 7-20 (Same as: l 14:00: Vitamin C) Vitamin B12 No Notes: Hossein diana 7-20 (Same As: l 14:00: Vitamin B12) Labetalol No Notes: Memori a 7-20 With food. l 14:00: (Same as:Trandat e, Normodyne) Fish Oil No Notes: Memoria 7-20 (Same as: l 14:00: MaxEPA, [place] 3 fish oil ) Vitamin C No Notes: Memori a 7-20 (Same as: l 14:00: Vitamin C) Vitamin B12 No Notes: Hossein diana 7-20 (Same As: l 14:00: Vitamin B12) Labetalol No Notes: Memori a 7-20 With food. l 14:00: (Same as:Trandat e, Normodyne) Fish Oil No Notes: Memoria 7-20 (Same as: l 14:00: MaxEPA, [place] 3 fish oil ) Vitamin C No Notes: Memori a 7-20 (Same as: l 14:00: Vitamin C) Vitamin B12 No Notes: Hossein diana 7-20 (Same As: l 14:00: Vitamin B12) Labetalol No Notes: Memori a 7-20 With food. l 14:00: (Same as:Trandat e, Normodyne) Fish Oil No Notes: Memoria 7-20 (Same as: l 14:00: MaxEPA, [place] 3 fish oil ) fentaNYL No Route: IV, Mem oria (ANES) 7-20 Drug form: l 13:45: INJ, ONCE, Stop date: 01/13/21 8:45:00 CDT propofol No Route: IV, Mem oria (ANES) 7-20 Drug form: l 13:45: INJ, ONCE, Stop date: 01/13/21 8:45:00 CDT rocuronium 2020-0 No Route: IV, M emoria (ANES) 7-20 Drug form: l 13:45: INJ, ONCE, Stop date: 01/13/21 8:45:00 CDT lidocaine 2020-0 No Route: IV, Me moria (ANES) 7-20 Drug form: l 13:45: INJ, ONCE, Stop date: 01/13/21 8:45:00 CDT phenylephri 2020-0 No Route: IV, Memoria ne (ANES) 7-20 Drug form: l 13:45: INJ, ONCE, Stop date: 01/13/21 8:45:00 CDT fentaNYL 2020-0 No Route: IV, Mem oria (ANES) 7-20 Drug form: l 13:45: INJ, ONCE, Stop date: 01/13/21 8:45:00 CDT propofol 2020-0 No Route: IV, Mem oria (ANES) 7-20 Drug form: l 13:45: INJ, ONCE, Stop date: 01/13/21 8:45:00 CDT rocuronium 2020-0 No Route: IV, M emoria (ANES) 7-20 Drug form: l 13:45: INJ, ONCE, Stop date: 01/13/21 8:45:00 CDT lidocaine 2020-0 No Route: IV, Me moria (ANES) 7-20 Drug form: l 13:45: INJ, ONCE, Stop date: 01/13/21 8:45:00 CDT phenylephri 2020-0 No Route: IV, Memoria ne (ANES) 7-20 Drug form: l 13:45: INJ, ONCE, Stop date: 01/13/21 8:45:00 CDT fentaNYL 2020-0 No Route: IV, Mem oria (ANES) 7-20 Drug form: l 13:45: INJ, ONCE, Stop date: 01/13/21 8:45:00 CDT propofol 2020-0 No Route: IV, Mem oria (ANES) 7-20 Drug form: l 13:45: INJ, ONCE, Stop date: 01/13/21 8:45:00 CDT rocuronium 2020-0 No Route: IV, M emoria (ANES) 7-20 Drug form: l 13:45: INJ, ONCE, Stop date: 01/13/21 8:45:00 CDT lidocaine 2020-0 No Route: IV, Me moria (ANES) 7-20 Drug form: l 13:45: INJ, ONCE, Stop date: 01/13/21 8:45:00 CDT phenylephri 0 No Route: IV, Memoria ne (ANES) 7-20 Drug form: l 13:45: INJ, ONCE, Stop date: 01/13/21 8:45:00 CDT fentaNYL 2020-0 No Route: IV, Mem oria (ANES) 7-20 Drug form: l 13:45: INJ, ONCE, Stop date: 01/13/21 8:45:00 CDT propofol 2020-0 No Route: IV, Mem oria (ANES) 7-20 Drug form: l 13:45: INJ, ONCE, Stop date: 01/13/21 8:45:00 CDT rocuronium 2020-0 No Route: IV, M emoria (ANES) 7-20 Drug form: l 13:45: INJ, ONCE, Stop date: 01/13/21 8:45:00 CDT lidocaine 2020-0 No Route: IV, Me moria (ANES) 7-20 Drug form: l 13:45: INJ, ONCE, Stop date: 01/13/21 8:45:00 CDT phenylephri 2020-0 No Route: IV, Memoria ne (ANES) 7-20 Drug form: l 13:45: INJ, ONCE, Stop date: 01/13/21 8:45:00 CDT fentaNYL 2020-0 No Route: IV, Mem oria (ANES) 7-20 Drug form: l 13:45: INJ, ONCE, Stop date: 01/13/21 8:45:00 CDT propofol 2020-0 No Route: IV, Mem oria (ANES) 7-20 Drug form: l 13:45: INJ, ONCE, Stop date: 01/13/21 8:45:00 CDT rocuronium 2020-0 No Route: IV, M emoria (ANES) 7-20 Drug form: l 13:45: INJ, ONCE, Stop date: 01/13/21 8:45:00 CDT lidocaine 2020-0 No Route: IV, Me moria (ANES) 7-20 Drug form: l 13:45: INJ, ONCE, Stop date: 01/13/21 8:45:00 CDT phenylephri 2020-0 No Route: IV, Memoria ne (ANES) 7- Drug form: l 13:45: INJ, ONCE, Stop date: 01/13/21 8:45:00 CDT fentaNYL 2020-0 No Route: IV, Mem oria (ANES) 7-20 Drug form: l 13:45: INJ, ONCE, Stop date: 01/13/21 8:45:00 CDT propofol 2020-0 No Route: IV, Mem oria (ANES) 7-20 Drug form: l 13:45: INJ, ONCE, Stop date: 01/13/21 8:45:00 CDT rocuronium 2020-0 No Route: IV, M emoria (ANES) 7-20 Drug form: l 13:45: INJ, ONCE, Stop date: 01/13/21 8:45:00 CDT lidocaine 2020-0 No Route: IV, Me moria (ANES) 7-20 Drug form: l 13:45: INJ, ONCE, Stop date: 01/13/21 8:45:00 CDT phenylephri 2020-0 No Route: IV, Memoria ne (ANES) 7-20 Drug form: l 13:45: INJ, ONCE, Stop date: 01/13/21 8:45:00 CDT ceFAZolin 2020-0 No Route: IV, Me moria (ANES) 7-20 Drug form: l 13:40: INJ, ONCE, Stop date: 01/13/21 8:40:00 CDT ceFAZolin 2020-0 No Route: IV, Me moria (ANES) 7-20 Drug form: l 13:40: INJ, ONCE, Stop date: 01/13/21 8:40:00 CDT ceFAZolin No Route: IV, Me moria (ANES) 7-20 Drug form: l 13:40: INJ, ONCE, Stop date: 01/13/21 8:40:00 CDT ceFAZolin No Route: IV, Me moria (ANES) 7- Drug form: l 13:40: INJ, ONCE, Stop date: 01/13/21 8:40:00 CDT ceFAZolin No Route: IV, Me moria (ANES) 7-20 Drug form: l 13:40: INJ, ONCE, Stop date: 01/13/21 8:40:00 CDT ceFAZolin No Route: IV, Me moria (ANES) 7- Drug form: l 13:40: INJ, ONCE, Stop date: 01/13/21 8:40:00 CDT remifentani No Route: IV, Memoria l (ANES) 1 01-13 Drug form: l mg 13:36: INJ, date: 01/13/21 8:36:00 CDT, Stop date: 01/13/21 9:36:00 CDT remifentani No Route: IV, Memoria l (ANES) 1 01-13 Drug form: l mg 13:36: INJ, date: 01/13/21 8:36:00 CDT, Stop date: 01/13/21 9:36:00 CDT remifentani No Route: IV, Memoria l (ANES) 1 01-13 Drug form: l mg 13:36: INJ, Start date: 01/13/21 8:36:00 CDT, Stop date: 01/13/21 9:36:00 CDT remifentani No Route: IV, Memoria l (ANES) 1 01-13 Drug form: l mg 13:36: INJ, date: 01/13/21 8:36:00 CDT, Stop date: 01/13/21 9:36:00 CDT remifentani 0 No Route: IV, Memoria l (ANES) 1 7-20 Drug form: l mg 13:36: INJ, Start [place] 00 date: 01/13/21 8:36:00 CDT, Stop date: 01/13/21 9:36:00 CDT remifentani No Route: IV, Memoria l (ANES) 1 7-20 Drug form: l mg 13:36: INJ, Start [place] 00 date: 01/13/21 8:36:00 CDT, Stop date: 01/13/21 9:36:00 CDT norepinephr 0 No Route: IV, Memoria ine (ANES) 7-20 Drug form: l 10 13:07: INJ, Start [place] microgram date: 01/13/21 8:07:00 CDT, Stop date: 01/13/21 9:07:00 CDT norepinephr 0 No Route: IV, Memoria ine (ANES) 7-20 Drug form: l 10 13:07: INJ, Start [place] microgram date: 01/13/21 8:07:00 CDT, Stop date: 01/13/21 9:07:00 CDT norepinephr 0 No Route: IV, Memoria ine (ANES) 7-20 Drug form: l 10 13:07: INJ, Start [place] microgram date: 01/13/21 8:07:00 CDT, Stop date: 01/13/21 9:07:00 CDT norepinephr 0 No Route: IV, Memoria ine (ANES) 7-20 Drug form: l 10 13:07: INJ, Start [place] microgram 00 date: 01/13/21 8:07:00 CDT, Stop date: 01/13/21 9:07:00 CDT norepinephr 2020-0 No Route: IV, Memoria ine (ANES) 7-20 Drug form: l 10 13:07: INJ, Start [place] microgram 00 date: 01/13/21 8:07:00 CDT, Stop date: 01/13/21 9:07:00 CDT norepinephr No Route: IV, Memoria ine (ANES) 7-20 Drug form: l 10 13:07: INJ, Start [place] microgram 00 date: 01/13/21 8:07:00 CDT, Stop date: 01/13/21 [...] Rate: 125 l 0.45% IV 12:51: ml/hr, [place] 1,000 mL 00 Infuse over: 8 hr, Route: IV, Dosing Weight 62.091 kg, Total Volume: 1,000, Start date: 01/13/21 7:51:00 CDT, Duration: 30 day, Stop date: 02/12/21 7:50:00 CDT, BSA: 1.63 m2, 0 Saline No Notes: Memoria Flush 0.9% 7-20 (Same as: l 12:51: BD [place] 00 Posiflush) Sodium 0 No 1,000 mL, Memori a Chloride 7-20 Rate: 125 l 0.45% IV 12:51: ml/hr, [place] 1,000 mL 00 Infuse over: 8 hr, Route: IV, Dosing Weight 62.091 kg, Total Volume: 1,000, Start date: 01/13/21 7:51:00 CDT, Duration: 30 day, Stop date: 02/12/21 7:50:00 CDT, BSA: 1.63 m2, 0 Saline 0 No Notes: Memoria Flush 0.9% 7-20 (Same as: l 12:51: BD [place] 00 Posiflush) Sodium 0 No 1,000 mL, Memori a Chloride 7-20 Rate: 125 l 0.45% IV 12:51: ml/hr, [place] 1,000 mL 00 Infuse over: 8 hr, Route: IV, Dosing Weight 62.091 kg, Total Volume: 1,000, Start date: 01/13/21 7:51:00 CDT, Duration: 30 day, Stop date: 02/12/21 7:50:00 CDT, BSA: 1.63 m2, 0 Saline 0 No Notes: Memoria Flush 0.9% 7-20 (Same as: l 12:51: BD [place] 00 Posiflush) Sodium 0 No 1,000 mL, Memori a Chloride 7-20 Rate: 125 l 0.45% IV 12:51: ml/hr, [place] 1,000 mL 00 Infuse over: 8 hr, Route: IV, Dosing Weight 62.091 kg, Total Volume: 1,000, Start date: 01/13/21 7:51:00 CDT, Duration: 30 day, Stop date: 02/12/21 7:50:00 CDT, BSA: 1.63 m2, 0 Saline 0 No Notes: Memoria Flush 0.9% 7-20 (Same as: l 12:51: BD [place] 00 Posiflush) Sodium 0 No 1,000 mL, Memori a Chloride 7-20 Rate: 125 l 0.45% IV 12:51: ml/hr, [place] 1,000 mL 00 Infuse over: 8 hr, Route: IV, Dosing Weight 62.091 kg, Total Volume: 1,000, Start date: 01/13/21 7:51:00 CDT, Duration: 30 day, Stop date: 02/12/21 7:50:00 CDT, BSA: 1.63 m2, 0 Saline No Notes: Memoria Flush 0.9% 7-20 (Same as: l 12:51: BD [place] 00 Posiflush) Sodium No 1,000 mL, Memori a Chloride 7-20 Rate: 125 l 0.45% IV 12:51: ml/hr, [place] 1,000 mL 00 Infuse over: 8 hr, Route: IV, Dosing Weight 62.091 kg, Total Volume: 1,000, Start date: 01/13/21 7:51:00 CDT, Duration: 30 day, Stop date: 02/12/21 7:50:00 CDT, BSA: 1.63 m2, 0 Saline No Notes: Memoria Flush 0.9% 7-20 (Same as: l 12:51: BD [place] 00 Posiflush) Isolyte S No Route: IV, [...] Stop date: 01/13/21 8:47:00 CDT Isolyte S 2021-0 No Route: IV, Me moria PH 7.4 7-20 Total l (ANES) 1000 12:47: Volume: Her mckee mL 00 1,000, Start date: 01/13/21 7:47:00 CDT, Stop date: 01/13/21 8:47:00 CDT Isolyte S 2020-0 No Route: IV, Me moria PH 7.4 7-20 Total l (ANES) 1000 12:47: Volume: Her mckee mL 00 1,000, Start date: 01/13/21 7:47:00 CDT, Stop date: 01/13/21 8:47:00 CDT Sodium 2020-0 No Route: IV, Memor ia Chloride 7-20 Total l 0.9% IV 12:46: Volume: [place] (ANES) 500 00 500, Start mL date: 01/13/21 7:46:00 CDT, Stop date: 01/13/21 8:46:00 CDT Sodium 1-0 No Route: IV, Memor ia Chloride 7-20 Total l 0.9% IV 12:46: Volume: [place] (ANES) 500 00 500, Start mL date: 01/13/21 7:46:00 CDT, Stop date: 01/13/21 8:46:00 CDT Sodium 1-0 No Route: IV, Memor ia Chloride 7-20 Total l 0.9% IV 12:46: Volume: [place] (ANES) 500 00 500, Start mL date: 01/13/21 7:46:00 CDT, Stop date: 01/13/21 8:46:00 CDT Sodium 2020-0 No Route: IV, Memor ia Chloride 7-20 Total l 0.9% IV 12:46: Volume: [place] (ANES) 500 00 500, Start mL date: 01/13/21 7:46:00 CDT, Stop date: 01/13/21 8:46:00 CDT Sodium 2021-0 No Route: IV, Memor ia Chloride 7-20 Total l 0.9% IV 12:46: Volume: [place] (ANES) 500 00 500, Start mL date: 01/13/21 7:46:00 CDT, Stop date: 01/13/21 8:46:00 CDT Sodium 2021-0 No Route: IV, Memor ia Chloride 7-20 Total l 0.9% IV 12:46: Volume: [place] (ANES) 500 00 500, Start mL date: 01/13/21 7:46:00 CDT, Stop date: 01/13/21 8:46:00 CDT Cefazolin 2020-0 No Notes: Memori a 7-15 (Same As: l 19:00: Ancef, [place] 00 Kefzol) MEDICATION WASTE Product Size: 1000 mg Product Wasted: ___ mg Cefazolin 202-0 No Notes: Memori a 7-15 (Same As: l 19:00: Ancef, [place] 00 Kefzol) MEDICATION WASTE Product Size: 1000 mg Product Wasted: ___ mg Cefazolin 2020-0 No Notes: Memori a 7-15 (Same As: l 19:00: Ancef, [place] 00 Kefzol) MEDICATION WASTE Product Size: 1000 mg Product Wasted: ___ mg Cefazolin 2020-0 No Notes: Memori a 7-15 (Same As: l 19:00: Ancef, [place] 00 Kefzol) MEDICATION WASTE Product Size: 1000 mg Product Wasted: ___ mg Cefazolin 2021-0 No Notes: Memori a 7-15 (Same As: l 19:00: Ancef, [place] 00 Kefzol) MEDICATION WASTE Product Size: 1000 mg Product Wasted: ___ mg Cefazolin 202-0 No Notes: Memori a 7-15 (Same As: l 19:00: Ancef, [place] 00 Kefzol) MEDICATION WASTE Product Size: 1000 mg Product Wasted: ___ mg Restoril 2020-0 No Notes: Memoria 7-15 (Same As: l 18:19: Restoril) [place] 00 [facility] 3:Reproduc tive risk Hazardous Drug -- Refer to safe handling procedure PPE Matrix Sodium No 250 mL, Memoria Chloride 7-15 Rate: To l 0.9% 18:19: prime line [place] (titrate) 00 and flush 250 mL remaining blood products., Dosing Weight 63.364, kg, Route: IV, Total Volume: 250, Priority: Routine, Start Date: 01/08/21 13:19:00 CDT, Duration: 1 day, Stop date: 01/09/21 13:18:00 CDT, Replace Every: 24 hr, 0 Restoril No Notes: Memoria 7-15 (Same As: l 18:19: Restoril) [place] 00 Haz[facility]ous Drug Group 3:Reproduc tive risk Hazardous Drug -- Refer to safe handling procedure PPE Matrix Sodium No 250 mL, Memoria Chloride 7-15 Rate: To l 0.9% 18:19: prime line [place] (titrate) 00 and flush 250 mL remaining blood products., Dosing Weight 63.364, kg, Route: IV, Total Volume: 250, Priority: Routine, Start Date: 01/08/21 13:19:00 CDT, Duration: 1 day, Stop date: 01/09/21 13:18:00 CDT, Replace Every: 24 hr, 0 Restoril No Notes: Memoria 7-15 (Same As: l 18:19: Restoril) [place] 00 [facility] Group 3:Reproduc tive risk Hazardous Drug -- Refer to safe handling procedure PPE Matrix Sodium No 250 mL, Memoria Chloride 7-15 Rate: To l 0.9% 18:19: prime line [place] (titrate) 00 and flush 250 mL remaining blood products., Dosing Weight 63.364, kg, Route: IV, Total Volume: 250, Priority: Routine, Start Date: 01/08/21 13:19:00 CDT, Duration: 1 day, Stop date: 01/09/21 13:18:00 CDT, Replace Every: 24 hr, 0 Restoril No Notes: Memoria 7-15 (Same As: l 18:19: Restoril) [place] 00 [facility] Group 3:Reproduc tive risk [...] Memoria 7-15 (Same As: l 18:19: Restoril) [place] 00 Hazardous Drug Group 3:Reproduc tive risk [...] Memoria 7-15 (Same As: l 18:19: Restoril) [place] Hazardous Drug Group 3:Reproduc tive risk Hazardous [...] diana 5-06 (Same As: l 14:00: Vitamin [place] 00 B12) Vitamin B12 No Notes: Hossein diana 5-06 (Same As: l 14:00: Vitamin [place] 00 B12) Vitamin B12 No Notes: Hossein diana 5-06 (Same As: l 14:00: Vitamin [place] 00 B12) Vitamin B12 No Notes: Hossein diana 5-06 (Same As: l 14:00: Vitamin [place] 00 B12) Vitamin B12 No Notes: Hossein diana 5-06 (Same As: l 14:00: Vitamin [place] 00 B12) Vitamin B12 No Notes: Hossein diana 5-06 (Same As: l 14:00: Vitamin [place] 00 B12) Labetalol 0 No 100 mg, 1 Mem oria 5-06 tab, l 02:00: Route: PO, [place] 00 Drug form: TAB, Q12H, Dosing Weight 63.364, kg, Start date: 10/29/20 21:00:00 CDT, Duration: 30 day, Stop date: 11/28/20 9:00:00 CDT Labetalol 0 No 100 mg, 1 Mem oria 5-06 tab, l 02:00: Route: PO, [place] 00 Drug form: TAB, Q12H, Dosing Weight 63.364, kg, Start date: 10/29/20 21:00:00 CDT, Duration: 30 day, Stop date: 11/28/20 9:00:00 CDT Labetalol 2021-0 No 100 mg, 1 Mem oria 5-06 tab, l 02:00: Route: PO, Drug form: TAB, Q12H, Dosing Weight 63.364, kg, Start date: 10/29/20 21:00:00 CDT, Duration: 30 day, Stop date: 11/28/20 9:00:00 CDT Labetalol 1-0 No 100 mg, 1 Mem oria 5-06 tab, l 02:00: Route: PO, Drug form: TAB, Q12H, Dosing Weight 63.364, kg, Start date: 10/29/20 21:00:00 CDT, Duration: 30 day, Stop date: 11/28/20 9:00:00 CDT Labetalol 1-0 No 100 mg, 1 Mem oria 5-06 tab, l 02:00: Route: PO, Drug form: TAB, Q12H, Dosing Weight 63.364, kg, Start date: 10/29/20 21:00:00 CDT, Duration: 30 day, Stop date: 11/28/20 9:00:00 CDT Labetalol 1-0 No 100 mg, 1 Mem oria 5-06 tab, l 02:00: Route: PO, Drug form: TAB, Q12H, Dosing Weight 63.364, kg, Start date: 10/29/20 21:00:00 CDT, Duration: 30 day, Stop date: 11/28/20 9:00:00 CDT Vitamin C No Notes: Memori a 5-05 (Same as: l 22:00: Vitamin C) Fish Oil No Notes: Memoria 5-05 (Same as: l 22:00: MaxEPA, [place] 3 fish oil ) Vitamin C No Notes: Memori a 5-05 (Same as: l 22:00: Vitamin C) Fish Oil No Notes: Memoria 5-05 (Same as: l 22:00: MaxEPA, [place] 3 fish oil ) Vitamin C No Notes: Memori a 5-05 (Same as: l 22:00: Vitamin C) [place] Fish Oil No Notes: Memoria 5-05 (Same as: l 22:00: MaxEPA, [place] 00 [place] 3 fish oil ) Vitamin C No Notes: Memori a 5-05 (Same as: l 22:00: Vitamin C) [place] Fish Oil No Notes: Memoria 5-05 (Same as: l 22:00: MaxEPA, [place] 00 [place] 3 fish oil ) Vitamin C No Notes: Memori a 5-05 (Same as: l 22:00: Vitamin C) [place] 00 Fish Oil No Notes: Memoria 5-05 (Same as: l 22:00: MaxEPA, [place] 00 [place] 3 fish oil ) Vitamin C No Notes: Memori a 5-05 (Same as: l 22:00: Vitamin C) Fish Oil No Notes: Memoria 5-05 (Same as: l 22:00: MaxEPA, [place] 00 [place] 3 fish oil ) tramadol Yes 50 mg = 1 Hossein diana hydrochlori 5-05 tab, PO, l de 50 MG 19:36: Q6H, PRN Lilian nn Oral Tablet 00 Pain, X 5 day, # 18 tab, 0 Refill(s), Pharmacy: [facility] #[id number], 149.86, cm, 10/24/20 13:06:00 CDT, Height, 63.364, kg, 10/24/20 13:06:00 CDT, Weight tramadol Yes 50 mg = 1 Hossein diana hydrochlori 5-05 tab, PO, l de 50 MG 19:36: Q6H, PRN Lilian nn Oral Tablet 00 Pain, X 5 day, # 18 tab, 0 Refill(s), Pharmacy: [facility] #[id number], 149.86, cm, 10/24/20 13:06:00 CDT, Height, 63.364, kg, 10/24/20 13:06:00 CDT, Weight tramadol 0 Yes 50 mg = 1 Hossein diana hydrochlori 5-05 tab, PO, l de 50 MG 19:36: Q6H, PRN Lilian nn Oral Tablet 00 Pain, X 5 day, # 18 tab, 0 Refill(s), Pharmacy: [facility] ([facility] #[id number], 149.86, cm, 10/24/20 13:06:00 CDT, Height, 63.364, kg, 10/24/20 13:06:00 CDT, Weight tramadol 0 Yes 50 mg = 1 Hossein diana hydrochlori 5-05 tab, PO, l de 50 MG 19:36: Q6H, PRN Lilian nn Oral Tablet 00 Pain, X 5 day, # 18 tab, 0 Refill(s), Pharmacy: [facility] #[id number], 149.86, cm, 10/24/20 13:06:00 CDT, Height, 63.364, kg, 10/24/20 13:06:00 CDT, Weight tramadol Yes 50 mg = 1 Hossein diana hydrochlori 5-05 tab, PO, l de 50 MG 19:36: Q6H, PRN Lilian nn Oral Tablet 00 Pain, X 5 day, # 18 tab, 0 Refill(s), Pharmacy: [facility] #[id number], 149.86, cm, 10/24/20 13:06:00 CDT, Height, 63.364, kg, 10/24/20 13:06:00 CDT, Weight tramadol 0 Yes 50 mg = 1 Hossein diana hydrochlori 5-05 tab, PO, l de 50 MG 19:36: Q6H, PRN Lilian nn Oral Tablet 00 Pain, X 5 day, # 18 tab, 0 Refill(s), Pharmacy: [facility] #[id number], 149.86, cm, 10/24/20 13:06:00 CDT, Height, 63.364, kg, 10/24/20 13:06:00 CDT, Weight clopidogrel No Notes: Hossein diana 5-05 (Same As: l 14:00: Plavix) [place] 00 Hydralazine No Notes: Hossein diana Hydrochlori 5-05 (Same as: l de 50 MG 14:00: Apresoline Her mckee Oral Tablet 00 ) May interfere w/enteral feedings Take With Food Aspirin No Notes: Do Memor ia 5-05 not crush l 14:00: or chew. [place] 00 (Same As: Ecotrin) clopidogrel No Notes: Hossein diana 5-05 (Same As: l 14:00: Plavix) Hydralazine No Notes: Hossein diana Hydrochlori 5-05 (Same as: l de 50 MG 14:00: Apresoline Her mckee Oral Tablet 00 ) May interfere w/enteral feedings Take With Food Aspirin No Notes: Do Memor ia 5-05 not crush l 14:00: or chew. (Same As: Ecotrin) clopidogrel No Notes: Hossein diana 5-05 (Same As: l 14:00: Plavix) Hydralazine No Notes: Hossein diana Hydrochlori 5-05 (Same as: l de 50 MG 14:00: Apresoline Her mckee Oral Tablet 00 ) May interfere w/enteral feedings Take With Food Aspirin No Notes: Do Memor ia 5-05 not crush l 14:00: or chew. (Same As: Ecotrin) clopidogrel No Notes: Hossein diana 5-05 (Same As: l 14:00: Plavix) Hydralazine No Notes: Hossein diana Hydrochlori 5-05 (Same as: l de 50 MG 14:00: Apresoline Her mckee Oral Tablet 00 ) May interfere w/enteral feedings Take With Food Aspirin No Notes: Do Memor ia 5-05 not crush l 14:00: or chew. (Same As: Ecotrin) clopidogrel No Notes: Hossein diana 5-05 (Same As: l 14:00: Plavix) Hydralazine No Notes: Hossein diana Hydrochlori 5-05 (Same as: l de 50 MG 14:00: Apresoline Her mckee Oral Tablet 00 ) May interfere w/enteral feedings Take With Food Aspirin No Notes: Do Memor ia 5-05 not crush l 14:00: or chew. [place] 00 (Same As: Ecotrin) clopidogrel No Notes: Hossein diana 5-05 (Same As: l 14:00: Plavix) [place] Hydralazine No Notes: Hossein diana Hydrochlori 5-05 (Same as: l de 50 MG 14:00: Apresoline Her mckee Oral Tablet ) May interfere w/enteral feedings Take With Food Aspirin No Notes: Do Memor ia 5-05 not crush l 14:00: or chew. [place] 00 (Same As: Ecotrin) Thyroxine No Notes: Memori a 5-05 Take 1 l 11:30: hour [place] 00 before or 2 hours after meal; Enteral feeds may interefere with the absorption of this medication .(Same as:Levothr oid, Synthroid) Thyroxine No Notes: Memori a 5-05 Take 1 l 11:30: hour [place] 00 before or 2 hours after meal; Enteral feeds may interefere with the absorption of this medication .(Same as:Levothr oid, Synthroid) Thyroxine No Notes: Memori a 5-05 Take 1 l 11:30: hour [place] 00 before or 2 hours after meal; Enteral feeds may interefere with the absorption of this medication .(Same as:Levothr oid, Synthroid) Thyroxine No Notes: Memori a 5-05 Take 1 l 11:30: hour [place] 00 before or 2 hours after meal; Enteral feeds may interefere with the absorption of this medication .(Same as:Levothr oid, Synthroid) Thyroxine No Notes: Memori a 5-05 Take 1 l 11:30: hour [place] 00 before or 2 hours after meal; Enteral feeds may interefere with the absorption of this medication .(Same as:Levothr oid, Synthroid) Thyroxine No Notes: Memori a 5-05 Take 1 l 11:30: hour [place] 00 before or 2 hours after meal; [...] 5-05 (Same as: l 02:00: Zocor) Ondansetron No 4 mg, Memor ia 5-04 Route: IV, l 23:04: ONCE, Dosing Weight 63.364, kg, Start date: 10/28/20 18:04:00 CDT, Stop date: 10/28/20 18:04:00 CDT Ondansetron No 4 mg, Memor ia 5-04 Route: IV, l 23:04: ONCE, Dosing Weight 63.364, kg, Start date: 10/28/20 18:04:00 CDT, Stop date: 10/28/20 18:04:00 CDT Ondansetron 2021-0 No 4 mg, Memor ia 5-04 Route: IV, l 23:04: ONCE, Dosing Weight 63.364, kg, Start date: 10/28/20 18:04:00 CDT, Stop date: 10/28/20 18:04:00 CDT Ondansetron 2021-0 No 4 mg, Memor ia 5-04 Route: IV, l 23:04: ONCE, Dosing Weight 63.364, kg, Start date: 10/28/20 18:04:00 CDT, Stop date: 10/28/20 18:04:00 CDT Ondansetron 2021-0 No 4 mg, Memor ia 5-04 Route: IV, l 23:04: ONCE, Dosing Weight 63.364, kg, Start date: 10/28/20 18:04:00 CDT, Stop date: 10/28/20 18:04:00 CDT Ondansetron 2021-0 No 4 mg, Memor ia 5-04 Route: IV, l 23:04: ONCE, Dosing Weight 63.364, kg, Start date: 10/28/20 18:04:00 CDT, Stop date: 10/28/20 18:04:00 CDT ceFAZolin + 2020-0 No Notes: Hossein diana sterile 5-04 (Same As: l water 20 mL 23:00: Ancef, Herm karina Kefzol) MEDICATION WASTE Product Size: 1000 mg Product Wasted: ___ mg ceFAZolin + 202-0 No Notes: Hossein diana sterile 5-04 (Same As: l water 20 mL 23:00: Ancef, Herm karina 00 Kefzol) MEDICATION WASTE Product Size: 1000 mg Product Wasted: ___ mg Tylenol 2020-0 No Notes: Max Hossein diana 5-04 acetaminop l 23:00: hen 4000 [place] 00 mg/day (4 gm/day). (Same as: Tylenol Extra Strength) Tylenol 2021-0 No Notes: Max Hossein diana 5-04 acetaminop l 23:00: hen 4000 [place] 00 mg/day (4 gm/day). (Same as: Tylenol Extra Strength) ceFAZolin + 2020-0 No Notes: Hossein diana sterile 5-04 (Same As: l water 20 mL 23:00: Ancef, Herm karina 00 Kefzol) MEDICATION WASTE Product Size: 1000 mg Product Wasted: ___ mg Tylenol 2020-0 No Notes: Max Hossein diana 5-04 acetaminop l 23:00: hen 4000 [place] 00 mg/day (4 gm/day). (Same as: Tylenol Extra Strength) ceFAZolin + 2020-0 No Notes: Hossein diana sterile 5-04 (Same As: l water 20 mL 23:00: Ancef, Herm karina 00 Kefzol) MEDICATION WASTE Product Size: 1000 mg Product Wasted: ___ mg Tylenol 2020-0 No Notes: Max Hossein diana 5-04 acetaminop l 23:00: hen 4000 [place] 00 mg/day (4 gm/day). (Same as: Tylenol Extra Strength) ceFAZolin + 2020-0 No Notes: Hossein diana sterile 5-04 (Same As: l water 20 mL 23:00: Ancef, Herm karina 00 Kefzol) MEDICATION WASTE Product Size: 1000 mg Product Wasted: ___ mg Tylenol 2020-0 No Notes: Max Hossein diana 5-04 acetaminop l 23:00: hen 4000 [place] 00 mg/day (4 gm/day). (Same as: Tylenol Extra Strength) ceFAZolin + 2020-0 No Notes: Hossein diana sterile 5-04 (Same As: l water 20 mL 23:00: Ancef, Herm karina 00 Kefzol) MEDICATION WASTE Product Size: 1000 mg Product Wasted: ___ mg Tylenol 2020-0 No Notes: Max Hossein diana 5-04 acetaminop l 23:00: hen 4000 [place] 00 mg/day (4 gm/day). (Same as: Tylenol Extra Strength) Hydralazine 2020-0 No Notes: Hossein diana 5-04 (Same as: l 22:00: Apresoline [place] ) Push over 5 minutes Hydralazine 2020-0 No Notes: Hossein idana 5-04 (Same as: l 22:00: Apresoline [place] ) Push over 5 minutes Hydralazine 2020-0 No Notes: Hossein diana 5-04 (Same as: l 22:00: Apresoline [place] ) Push over 5 minutes Hydralazine 2020-0 No Notes: Hossein diana 5-04 (Same as: l 22:00: Apresoline [place] ) Push over 5 minutes Hydralazine 2020-0 No Notes: Hossein diana 5-04 (Same as: l 22:00: Apresoline [place] ) Push over 5 minutes Hydralazine 2020-0 No Notes: Hossein diana 5-04 (Same as: l 22:00: Apresoline [place] ) Push over 5 minutes Sodium 1-0 No 250 mL, Memoria Chloride 5-04 Route: l 0.9% IV 20:47: IVPB, [place] 00 Start date: 10/28/20 15:47:00 CDT, Duration: 30 day, Stop date: 11/27/20 15:46:00 CDT, PRN Line Flush, 0 Sodium 2021-0 No 250 mL, Memoria Chloride 5-04 Route: l 0.9% IV 20:47: IVPB, [place] 00 Start date: 10/28/20 15:47:00 CDT, Duration: 30 day, Stop date: 11/27/20 15:46:00 CDT, PRN Line Flush, 0 Sodium 2021-0 No 250 mL, Memoria Chloride 5-04 Route: l 0.9% IV 20:47: IVPB, [place] 00 Start date: 10/28/20 15:47:00 CDT, Duration: 30 day, Stop date: 11/27/20 15:46:00 CDT, PRN Line Flush, 0 Sodium 2021-0 No 250 mL, Memoria Chloride 5-04 Route: l 0.9% IV 20:47: IVPB, [place] 00 Start date: 10/28/20 15:47:00 CDT, Duration: 30 day, Stop date: 11/27/20 15:46:00 CDT, PRN Line Flush, 0 Sodium 2020-0 No 250 mL, Memoria Chloride 5-04 Route: l 0.9% IV 20:47: IVPB, [place] Start date: 10/28/20 15:47:00 CDT, Duration: 30 day, Stop date: 11/27/20 15:46:00 CDT, PRN Line Flush, 0 Sodium 0 No 250 mL, Memoria Chloride 5-04 Route: l 0.9% IV 20:47: IVPB, [place] 00 Start date: 10/28/20 15:47:00 CDT, Duration: 30 day, Stop date: 11/27/20 15:46:00 CDT, PRN Line Flush, 0 Oxycodone No Notes: Memori a Hydrochlori 5-04 (Same as: l de 5 MG 20:17: Roxicodone Herm karina Oral Tablet 00 ) Tramadol No Notes: Not Mem oria 5-04 to exceed l 20:17: 400mg/day. [place] 00 (Same As: Ultram) Oxycodone No Notes: Memori a Hydrochlori 5-04 (Same as: l de 5 MG 20:17: Roxicodone Herm karina Oral Tablet 00 ) Tramadol No Notes: Not Mem oria 5-04 to exceed l 20:17: 400mg/day. [place] 00 (Same As: Ultram) Oxycodone No Notes: Memori a Hydrochlori 5-04 (Same as: l de 5 MG 20:17: Roxicodone Herm karina Oral Tablet 00 ) Tramadol No Notes: Not Mem oria 5-04 to exceed l 20:17: 400mg/day. [place] 00 (Same As: Ultram) Oxycodone No Notes: Memori a Hydrochlori 5-04 (Same as: l de 5 MG 20:17: Roxicodone Herm karina Oral Tablet 00 ) Tramadol No Notes: Not Mem oria 5-04 to exceed l 20:17: 400mg/day. [place] 00 (Same As: Ultram) Oxycodone No Notes: Memori a Hydrochlori 5-04 (Same as: l de 5 MG 20:17: Roxicodone Herm karina Oral Tablet 00 ) Tramadol No Notes: Not Mem oria 5-04 to exceed l 20:17: 400mg/day. [place] 00 (Same As: Ultram) Oxycodone No Notes: Memori a Hydrochlori 5-04 (Same as: l de 5 MG 20:17: Roxicodone Herm karina Oral Tablet 00 ) Tramadol No Notes: Not Mem oria 5-04 to exceed l 20:17: 400mg/day. [place] 00 (Same As: Ultram) Temazepam No Notes: [...] 5-04 (Same as: l 18:23: KCL) 10 mEq/100ml product recommende d for peripheral line administra tion. Infuse no faster than 10 mEq/hr if given peripheral ly. sodium No Notes: Memoria phosphate 5-04 Infuse l 18:23: over 4 [place] 00 hour. Do not infuse phosphorou s concurrent ly in the same line as TPN or IVF that contains calcium. For double lumen central lines, phosphorou s may be infused in a separate lumen from TPN. potassium No Notes: Memori a phosphate 5-04 (Same as: l 18:23: K [place] 00 Phosphate. ) Do not infuse phosphorou [...] WASTE: F/P l 18:23: - Sink; E [place] 00 - Municipal Trash Bin Magnesium No Notes: Memori a Oxide - (Same as: l 18:23: Mag-Ox Jesús 00 400) Magnesium oxide [id number] g elemental magnesium Dose=____m g magnesium oxide (___mg elemental magnesium) Calcium No Notes: Memoria Gluconate - WASTE: F/P l 18:23: - Sink; E [place] 00 - Municipal Trash Bin calcium No Notes: Memoria carbonate - (Same As: l 500 mg (200 18:23: Tums) Lilian nn mg 00 Calcium elemental Carbonate calcium) 500 mg = oral tablet 200 mg elemental calcium Dose = mg calcium carbonate ( mg elemental calcium) Potassium No Notes: Memori a Chloride - (Same as: l 18:23: KCL) 10 Jesús 00 mEq/100ml product recommende d for peripheral line administra tion. Infuse no faster than 10 mEq/hr if given peripheral ly. sodium No Notes: Memoria phosphate 5-04 Infuse l 18:23: over 4 [place] 00 hour. Do not infuse phosphorou s concurrent ly in the same line as TPN or IVF that contains calcium. For double lumen central lines, phosphorou s may be infused in a separate lumen from TPN. potassium No Notes: Memori a phosphate 5-04 (Same as: l 18:23: K [place] 00 [...] Oxide - (Same as: l 18:23: Mag-Ox Jesús 00 400) Magnesium oxide [id number] g elemental magnesium Dose=____m g magnesium oxide (___mg elemental magnesium) Calcium No Notes: Memoria Gluconate - WASTE: F/P l 18:23: - Sink; E [place] 00 - [facility] Trash Bin calcium No Notes: Memoria carbonate - (Same As: l 500 mg (200 18:23: Tums) Lilian nn mg 00 Calcium elemental Carbonate calcium) 500 mg = oral tablet 200 mg elemental calcium Dose = mg calcium carbonate ( mg elemental calcium) Potassium No Notes: Memori a Chloride - (Same as: l 18:23: KCL) 10 Jesú[place] 00 mEq/100ml product recommende [...] TPN. potassium No Notes: Memori a phosphate 5-04 (Same as: l 18:23: K [place] 00 [...] WASTE: F/P l 18:23: - Sink; E [place] 00 - Municipal Trash Bin Magnesium No Notes: Memori a Oxide - (Same as: l 18:23: Mag-Ox [place] 00 400) Magnesium oxide [id number] g elemental magnesium Dose=____m g magnesium oxide (___mg elemental magnesium) Calcium No Notes: Memoria Gluconate - WASTE: F/P l 18:23: - Sink; E [place] 00 - Municipal Trash Bin calcium No Notes: Memoria carbonate - (Same As: l 500 mg (200 18:23: Tums) Lilian nn mg 00 Calcium elemental Carbonate calcium) 500 mg = oral tablet 200 mg elemental calcium Dose = mg calcium carbonate ( mg elemental calcium) Potassium No Notes: Memori a Chloride - (Same as: l 18:23: KCL) 10 [place] 00 mEq/100ml product recommende d for peripheral line administra tion. Infuse no faster than 10 mEq/hr if given peripheral ly. sodium No Notes: Memoria phosphate 5-04 Infuse l 18:23: over 4 [place] 00 hour. Do not infuse phosphorou s concurrent ly in the same line as TPN or IVF that contains calcium. For double lumen central lines, phosphorou s may be infused in a separate lumen from TPN. potassium No Notes: Memori a phosphate 5-04 (Same as: l 18:23: K [place] 00 Phosphate. ) Do not infuse phosphorou [...] Oxide - (Same as: l 18:23: Mag-Ox [place] 00 400) Magnesium oxide [id number] g elemental magnesium Dose=____m g magnesium oxide (___mg elemental magnesium) Calcium No Notes: Memoria Gluconate - WASTE: F/P l 18:23: - Sink; E [place] 00 - Municipal Trash Bin calcium No Notes: Memoria carbonate - (Same As: l 500 mg (200 18:23: Tums) Lilian nn mg 00 Calcium elemental Carbonate calcium) 500 mg = oral tablet 200 mg elemental calcium Dose = mg calcium carbonate ( mg elemental calcium) Potassium No Notes: Memori a Chloride - (Same as: l 18:23: KCL) 10 [place] 00 mEq/100ml product recommende d for peripheral line administra tion. Infuse no faster than 10 mEq/hr if given peripheral ly. sodium No Notes: Memoria phosphate 5-04 Infuse l 18:23: over 4 [place] 00 hour. Do not infuse phosphorou s concurrent ly in the same line as TPN or IVF that contains calcium. For double lumen central lines, phosphorou s may be infused in a separate lumen from TPN. potassium No Notes: Memori a phosphate 5-04 (Same as: l 18:23: K [place] 00 [...] - (Same as: l odium 18:23: Phos-NaK) [place] phosphate 00 Each 1.5 250 mg-280 gm pkt has mg-160 mg 250mg oral powder phosphorou for s. Mix reconstitut w/2.5oz ion water and stir. Magnesium No Notes: Memori a Sulfate 10-28 WASTE: F/P l 18:23: - Sink; E [place] 00 - Municipal Trash Bin Magnesium No Notes: Memori a Oxide - (Same as: l 18:23: Mag-Ox [place] 00 400) Magnesium oxide [id number] g elemental magnesium Dose=____m g magnesium oxide (___mg elemental magnesium) Calcium No Notes: Memoria Gluconate - WASTE: F/P l 18:23: - Sink; E [place] 00 - Municipal Trash Bin calcium No Notes: Memoria carbonate - (Same As: l 500 mg (200 18:23: Tums) Lilian nn mg 00 Calcium elemental Carbonate calcium) 500 mg = oral tablet 200 mg elemental calcium Dose = mg calcium carbonate ( mg elemental calcium) Potassium No Notes: Memori a Chloride - (Same as: l 18:23: KCL) 10 [place] 00 mEq/100ml product recommende [...] TPN. potassium No Notes: Memori a phosphate 5-04 (Same as: l 18:23: K [place] 00 Phosphate. ) Do not infuse phosphorou [...] WASTE: F/P l 18:23: - Sink; E [place] 00 - Municipal Trash Bin Magnesium No Notes: Memori a Oxide - (Same as: l 18:23: Mag-Ox [place] 00 400) Magnesium oxide [id number] g elemental magnesium Dose=____m g magnesium oxide (___mg elemental magnesium) Calcium No Notes: Memoria Gluconate - WASTE: F/P l 18:23: - Sink; E [place] 00 - Municipal Trash Bin calcium No Notes: Memoria carbonate - (Same As: l 500 mg (200 18:23: Tums) Lilian nn mg 00 Calcium elemental Carbonate calcium) 500 mg = oral tablet 200 mg elemental calcium Dose = mg calcium carbonate ( mg elemental calcium) Acetaminoph No Notes: Max Memoria en - acetaminop l 18:22: hen 4000 [place] 00 mg/day (4 gm/day). (Same as: Tylenol Extra Strength) Acetaminoph No Notes: Max Memoria en 5-04 acetaminop l 18:22: hen 4000 [place] 00 mg/day (4 gm/day). (Same as: Tylenol Extra Strength) Acetaminoph No Notes: Max Memoria en 5-04 acetaminop l 18:22: hen 4000 [place] 00 mg/day (4 gm/day). (Same as: Tylenol Extra Strength) Acetaminoph No Notes: Max Memoria en 5-04 acetaminop l 18:22: hen 4000 [place] 00 mg/day (4 gm/day). (Same as: Tylenol Extra Strength) Acetaminoph No Notes: Max Memoria en 5-04 acetaminop l 18:22: hen 4000 [place] 00 mg/day (4 gm/day). (Same as: Tylenol Extra Strength) Acetaminoph No Notes: Max Memoria en 5-04 acetaminop l 18:22: hen 4000 [place] 00 mg/day (4 gm/day). (Same as: Tylenol Extra Strength) ondansetron No Route: IV, Memoria (ANES) 5-04 Drug form: l 17:48: INJ, ONCE, [place] 00 Stop date: 10/28/20 12:48:00 CDT neostigmine 0 No Route: IV, Memoria (ANES) 5-04 Drug form: l 17:48: INJ, ONCE, [place] 00 Stop date: 10/28/20 12:48:00 CDT ondansetron 0 No Route: IV, Memoria (ANES) 5-04 Drug form: l 17:48: INJ, ONCE, [place] Stop date: 10/28/20 12:48:00 CDT neostigmine 2020-0 No Route: IV, Memoria (ANES) 5-04 Drug form: l 17:48: INJ, ONCE, [place] Stop date: 10/28/20 12:48:00 CDT ondansetron 2020-0 No Route: IV, Memoria (ANES) 5-04 Drug form: l 17:48: INJ, ONCE, [place] Stop date: 10/28/20 12:48:00 CDT neostigmine 2020-0 No Route: IV, Memoria (ANES) 5-04 Drug form: l 17:48: INJ, ONCE, Stop date: 10/28/20 12:48:00 CDT ondansetron 2020-0 No Route: IV, Memoria (ANES) 5-04 Drug form: l 17:48: INJ, ONCE, Stop date: 10/28/20 12:48:00 CDT neostigmine 2020-0 No Route: IV, Memoria (ANES) 5-04 Drug form: l 17:48: INJ, ONCE, Stop date: 10/28/20 12:48:00 CDT ondansetron 2020-0 No Route: IV, Memoria (ANES) 5-04 Drug form: l 17:48: INJ, ONCE, Stop date: 10/28/20 12:48:00 CDT neostigmine 2020-0 No Route: IV, Memoria (ANES) 5-04 Drug form: l 17:48: INJ, ONCE, Stop date: 10/28/20 12:48:00 CDT ondansetron 2020-0 No Route: IV, Memoria (ANES) 5-04 Drug form: l 17:48: INJ, ONCE, Stop date: 10/28/20 12:48:00 CDT neostigmine 2020-0 No Route: IV, Memoria (ANES) 5-04 Drug form: l 17:48: INJ, ONCE, Stop date: 10/28/20 12:48:00 CDT protamine 2020-0 No Route: IV, Me moria (ANES) 5-04 Drug form: l 17:41: INJ, ONCE, Stop date: 10/28/20 12:41:00 CDT protamine 2020-0 No Route: IV, Me moria (ANES) 5-04 Drug form: l 17:41: INJ, ONCE, Stop date: 10/28/20 12:41:00 CDT protamine 2020-0 No Route: IV, Me moria (ANES) 5-04 Drug form: l 17:41: INJ, ONCE, Stop date: 10/28/20 12:41:00 CDT protamine 0 No Route: IV, Me moria (ANES) 5-04 Drug form: l 17:41: INJ, ONCE, Stop date: 10/28/20 12:41:00 CDT protamine 2020-0 No Route: IV, Me moria (ANES) 5-04 Drug form: l 17:41: INJ, ONCE, Stop date: 10/28/20 12:41:00 CDT protamine 2020-0 No Route: IV, Me moria (ANES) 5-04 Drug form: l 17:41: INJ, ONCE, Stop date: 10/28/20 12:41:00 CDT heparin 0 No Route: IV, Hossein diana (ANES) 5-04 Drug form: l 16:45: INJ, ONCE, Stop date: 10/28/20 11:45:00 CDT heparin 2020-0 No Route: IV, Hossein diana (ANES) 5-04 Drug form: l 16:45: INJ, ONCE, Stop date: 10/28/20 11:45:00 CDT heparin 2020-0 No Route: IV, Hossein diana (ANES) 5-04 Drug form: l 16:45: INJ, ONCE, Stop date: 10/28/20 11:45:00 CDT heparin 2020-0 No Route: IV, Hossein diana (ANES) 5-04 Drug form: l 16:45: INJ, ONCE, Stop date: 10/28/20 11:45:00 CDT heparin 2020-0 No Route: IV, Hossein diana (ANES) 5-04 Drug form: l 16:45: INJ, ONCE, [place] 00 Stop date: 10/28/20 11:45:00 CDT heparin 2020-0 No Route: IV, Hossein diana (ANES) 5-04 Drug form: l 16:45: INJ, ONCE, [place] 00 Stop date: 10/28/20 11:45:00 CDT lidocaine 2020-0 No Route: IV, Me moria (ANES) 5-04 Drug form: l 16:25: INJ, ONCE, Stop date: 10/28/20 11:25:00 CDT glycopyrrol 0 No Route: IV, Memoria ate (ANES) 5-04 Drug form: l 16:25: INJ, ONCE, Stop date: 10/28/20 11:25:00 CDT lidocaine 0 No Route: IV, Me moria (ANES) 5-04 Drug form: l 16:25: INJ, ONCE, Stop date: 10/28/20 11:25:00 CDT glycopyrrol 0 No Route: IV, Memoria ate (ANES) 5-04 Drug form: l 16:25: INJ, ONCE, Stop date: 10/28/20 11:25:00 CDT lidocaine 0 No Route: IV, Me moria (ANES) 5-04 Drug form: l 16:25: INJ, ONCE, Stop date: 10/28/20 11:25:00 CDT glycopyrrol 0 No Route: IV, Memoria ate (ANES) 5-04 Drug form: l 16:25: INJ, ONCE, Stop date: 10/28/20 11:25:00 CDT lidocaine 0 No Route: IV, Me moria (ANES) 5-04 Drug form: l 16:25: INJ, ONCE, Stop date: 10/28/20 11:25:00 CDT glycopyrrol 0 No Route: IV, Memoria ate (ANES) 5-04 Drug form: l 16:25: INJ, ONCE, Stop date: 10/28/20 11:25:00 CDT lidocaine 2020-0 No Route: IV, Me moria (ANES) 5-04 Drug form: l 16:25: INJ, ONCE, Stop date: 10/28/20 11:25:00 CDT glycopyrrol 0 No Route: IV, Memoria ate (ANES) 5-04 Drug form: l 16:25: INJ, ONCE, Stop date: 10/28/20 11:25:00 CDT lidocaine 2020-0 No Route: IV, Me moria (ANES) 5-04 Drug form: l 16:25: INJ, ONCE, Stop date: 10/28/20 11:25:00 CDT glycopyrrol 2020-0 No Route: IV, Memoria ate (ANES) 5- Drug form: l 16:25: INJ, ONCE, Stop date: 10/28/20 11:25:00 CDT phenylephri 2020-0 No Route: IV, Memoria ne (ANES) 5- Drug form: l 16:20: INJ, ONCE, Stop date: 10/28/20 11:20:00 CDT ePHEDrine 2020-0 No Route: IV, Me moria (ANES) 5- Drug form: l 16:20: INJ, ONCE, Stop date: 10/28/20 11:20:00 CDT phenylephri 2020-0 No Route: IV, Memoria ne (ANES) 5- Drug form: l 16:20: INJ, ONCE, Stop date: 10/28/20 11:20:00 CDT ePHEDrine 2020-0 No Route: IV, Me moria (ANES) 5- Drug form: l 16:20: INJ, ONCE, Stop date: 10/28/20 11:20:00 CDT phenylephri 2020-0 No Route: IV, Memoria ne (ANES) 5-04 Drug form: l 16:20: INJ, ONCE, Stop date: 10/28/20 11:20:00 CDT ePHEDrine 2020-0 No Route: IV, Me moria (ANES) 5-04 Drug form: l 16:20: INJ, ONCE, Stop date: 10/28/20 11:20:00 CDT phenylephri 2020-0 No Route: IV, Memoria ne (ANES) 5- Drug form: l 16:20: INJ, ONCE, Stop date: 10/28/20 11:20:00 CDT ePHEDrine 2020-0 No Route: IV, Me moria (ANES) 5-04 Drug form: l 16:20: INJ, ONCE, Stop date: 10/28/20 11:20:00 CDT phenylephri 2021-0 No Route: IV, Memoria ne (ANES) 5-04 Drug form: l 16:20: INJ, ONCE, Stop date: 10/28/20 11:20:00 CDT ePHEDrine 0 No Route: IV, Me moria (ANES) 5-04 Drug form: l 16:20: INJ, ONCE, Stop date: 10/28/20 11:20:00 CDT phenylephri 0 No Route: IV, Memoria ne (ANES) 5- Drug form: l 16:20: INJ, ONCE, Stop date: 10/28/20 11:20:00 CDT ePHEDrine 0 No Route: IV, Me moria (ANES) 5-04 Drug form: l 16:20: INJ, ONCE, Stop date: 10/28/20 11:20:00 CDT fentaNYL 2020-0 No Route: IV, Mem oria (ANES) 5- Drug form: l 16:09: INJ, ONCE, Stop date: 10/28/20 11:09:00 CDT propofol 2020-0 No Route: IV, Mem oria (ANES) 5-04 Drug form: l 16:09: INJ, ONCE, Stop date: 10/28/20 11:09:00 CDT rocuronium 2020-0 No Route: IV, M emoria (ANES) 5-04 Drug form: l 16:09: INJ, ONCE, Stop date: 10/28/20 11:09:00 CDT succinylcho 2020-0 No Route: IV, Memoria line (ANES) 5-04 Drug form: l 16:09: INJ, ONCE, Stop date: 10/28/20 11:09:00 CDT fentaNYL 2020-0 No Route: IV, Mem oria (ANES) 5-04 Drug form: l 16:09: INJ, ONCE, Stop date: 10/28/20 11:09:00 CDT propofol 2020-0 No Route: IV, Mem oria (ANES) 5-04 Drug form: l 16:09: INJ, ONCE, Stop date: 10/28/20 11:09:00 CDT rocuronium 2021-0 No Route: IV, M emoria (ANES) 5-04 Drug form: l 16:09: INJ, ONCE, Stop date: 10/28/20 11:09:00 CDT succinylcho 2021-0 No Route: IV, Memoria line (ANES) 5-04 Drug form: l 16:09: INJ, ONCE, Stop date: 10/28/20 11:09:00 CDT fentaNYL 2021-0 No Route: IV, Mem oria (ANES) 5-04 Drug form: l 16:09: INJ, ONCE, Stop date: 10/28/20 11:09:00 CDT propofol 2021-0 No Route: IV, Mem oria (ANES) 5-04 Drug form: l 16:09: INJ, ONCE, Stop date: 10/28/20 11:09:00 CDT rocuronium 2021-0 No Route: IV, M emoria (ANES) 5-04 Drug form: l 16:09: INJ, ONCE, Stop date: 10/28/20 11:09:00 CDT succinylcho 2021-0 No Route: IV, Memoria line (ANES) 5-04 Drug form: l 16:09: INJ, ONCE, Stop date: 10/28/20 11:09:00 CDT fentaNYL 2021-0 No Route: IV, Mem oria (ANES) 5-04 Drug form: l 16:09: INJ, ONCE, Stop date: 10/28/20 11:09:00 CDT propofol 2021-0 No Route: IV, Mem oria (ANES) 5-04 Drug form: l 16:09: INJ, ONCE, Stop date: 10/28/20 11:09:00 CDT rocuronium 2021-0 No Route: IV, M emoria (ANES) 5-04 Drug form: l 16:09: INJ, ONCE, Stop date: 10/28/20 11:09:00 CDT succinylcho 2021-0 No Route: IV, Memoria line (ANES) 5-04 Drug form: l 16:09: INJ, ONCE, Stop date: 10/28/20 11:09:00 CDT fentaNYL 2020-0 No Route: IV, Mem oria (ANES) 5- Drug form: l 16:09: INJ, ONCE, Stop date: 10/28/20 11:09:00 CDT propofol 2021-0 No Route: IV, Mem oria (ANES) 5- [...] Me moria (ANES) 5- Drug form: l 16:04: INJ, ONCE, Stop date: 10/28/20 11:04:00 CDT dexamethaso 2020-0 No Route: IV, Memoria ne (ANES) 5- Drug form: l 16:04: INJ, ONCE, Stop date: 10/28/20 11:04:00 CDT ceFAZolin 2020-0 No Route: IV, Me moria (ANES) 5- Drug form: l 16:04: INJ, ONCE, Stop date: 10/28/20 11:04:00 CDT dexamethaso 2020-0 No Route: IV, Memoria ne (ANES) 5- Drug form: l 16:04: INJ, ONCE, Stop date: 10/28/20 11:04:00 CDT ceFAZolin 2020-0 No Route: IV, Me moria (ANES) 5- Drug form: l 16:04: INJ, ONCE, Stop date: 10/28/20 11:04:00 CDT dexamethaso 2020-0 No Route: IV, Memoria ne (ANES) 5- Drug form: l 16:04: INJ, ONCE, Stop date: 10/28/20 11:04:00 CDT ceFAZolin 2020-0 No Route: IV, Me moria (ANES) 5- Drug form: l 16:04: INJ, ONCE, Stop date: 10/28/20 11:04:00 CDT dexamethaso 2020-0 No Route: IV, Memoria ne (ANES) 5- Drug form: l 16:04: INJ, ONCE, Stop date: 10/28/20 11:04:00 CDT ceFAZolin 2020-0 No Route: IV, Me moria (ANES) 5- Drug form: l 16:04: INJ, ONCE, Stop date: 10/28/20 11:04:00 CDT dexamethaso 2020-0 No Route: IV, Memoria ne (ANES) 5- Drug form: l 16:04: INJ, ONCE, Stop date: 10/28/20 11:04:00 CDT ceFAZolin 0 No Route: IV, Me moria (ANES) 5-04 Drug form: l 16:04: INJ, ONCE, [place] 00 Stop date: 10/28/20 11:04:00 CDT phenylephri 2020-0 No Route: IV, Memoria ne (ANES) 5-04 Drug form: l 100 15:40: INJ, Start Jesús microgram date: 10/28/20 10:40:00 CDT, Stop date: 10/28/20 11:40:00 CDT phenylephri 2020-0 No Route: IV, Memoria ne (ANES) 5-04 Drug form: l 100 15:40: INJ, Start [place] microgram date: 10/28/20 10:40:00 CDT, Stop date: 10/28/20 11:40:00 CDT phenylephri 2020-0 No Route: IV, Memoria ne (ANES) 5-04 Drug form: l 100 15:40: INJ, Start Jes[place] microgram date: 10/28/20 10:40:00 CDT, Stop date: 10/28/20 [...] Drug form: l 100 15:40: INJ, Start [place] microgram 00 date: 10/28/20 10:40:00 CDT, Stop date: 10/28/20 11:40:00 CDT Sodium 2020-0 No 1,000 mL, Memori a Chloride 5-04 Rate: 125 l 0.45% IV 15:33: ml/hr, Jes[place]s 1,000 mL 00 Infuse over: 8 hr, Route: IV, Dosing Weight 63.364 kg, Total Volume: 1,000, Start date: 10/28/20 10:33:00 CDT, Duration: 30 day, Stop date: 11/27/20 10:32:00 CDT, 1.65, m2, 0 Saline 2020-0 No Notes: Memoria Flush 0.9% 5-04 (Same as: l 15:33: BD [place] 00 Posiflush) Sodium 2020-0 No 1,000 mL, Memori a Chloride 5-04 Rate: 125 l 0.45% IV 15:33: ml/hr, [place] 1,000 mL 00 Infuse over: 8 hr, Route: IV, Dosing Weight 63.364 kg, Total Volume: 1,000, Start date: 10/28/20 10:33:00 CDT, Duration: 30 day, Stop date: 11/27/20 10:32:00 CDT, 1.65, m2, 0 Saline 2020-0 No Notes: Memoria Flush 0.9% 5-04 (Same as: l 15:33: BD [place] 00 Posiflush) Sodium 2020-0 No 1,000 mL, Memori a Chloride 5-04 Rate: 125 l 0.45% IV 15:33: ml/hr, [place] 1,000 mL 00 Infuse over: 8 hr, Route: IV, Dosing Weight 63.364 kg, Total Volume: 1,000, Start date: 10/28/20 10:33:00 CDT, Duration: 30 day, Stop date: 11/27/20 10:32:00 CDT, 1.65, m2, 0 Saline 2020-0 No Notes: Memoria Flush 0.9% 5-04 (Same as: l 15:33: BD [place] 00 Posiflush) Sodium 1-0 No 1,000 mL, Memori a Chloride 5-04 [...] Rate: 125 l 0.45% IV 15:33: ml/hr, [place] 1,000 mL 00 Infuse over: 8 hr, [...] 0.9% 5-04 (Same as: l 15:33: BD [place] 00 Posiflush) Lactated No Route: IV, Mem [...] CDT, Stop date: 10/28/20 11:14:00 CDT Lactated 2020-0 No Route: IV, Mem oria Ringers 5-04 Total l Injection 15:14: Volume: Lilian nn IV (ANES) 00 1,000, 1000 mL Start date: 10/28/20 10:14:00 CDT, Stop date: 10/28/20 11:14:00 CDT Lactated 2020-0 No Route: IV, Mem oria Ringers 5-04 Total l Injection 15:14: Volume: Lilian nn IV (ANES) 00 1,000, 1000 mL Start date: 10/28/20 10:14:00 CDT, Stop date: 10/28/20 11:14:00 CDT Lactated 2020-0 No Route: IV, Mem oria Ringers 5-04 Total l Injection 15:14: Volume: Lilian nn IV (ANES) 00 1,000, 1000 mL Start date: 10/28/20 10:14:00 CDT, Stop date: 10/28/20 11:14:00 CDT Lactated 2020-0 No Route: IV, Mem oria Ringers 5-04 Total l Injection 15:14: Volume: Lilian nn IV (ANES) 00 1,000, 1000 mL Start date: 10/28/20 10:14:00 CDT, Stop date: 10/28/20 11:14:00 CDT Cefazolin 2020-0 No Notes: Memori a 4-30 (Same As: l 18:00: Ancef, Jes[place] 00 Kefzol) MEDICATION WASTE Product Size: 1000 mg Product Wasted: ___ mg Cefazolin 2020-0 No Notes: Memori a 4-30 (Same As: l 18:00: Ancef, [place] 00 Kefzol) MEDICATION WASTE Product Size: 1000 mg Product Wasted: ___ mg Cefazolin 2020-0 No Notes: Memori a 4-30 (Same As: l 18:00: Ancef, [place] 00 Kefzol) MEDICATION WASTE Product Size: 1000 mg Product Wasted: ___ mg Cefazolin 2020-0 No Notes: Memori a 4-30 (Same As: l 18:00: Ancef, [place] 00 Kefzol) MEDICATION WASTE Product Size: 1000 mg Product Wasted: ___ mg Cefazolin No Notes: Memori a 4-30 (Same As: l 18:00: Ancef, Jes[place]s Kefzol) MEDICATION WASTE Product Size: 1000 mg Product Wasted: ___ mg Cefazolin No Notes: Memori a 4-30 (Same As: l 18:00: Ancef, [place] Kefzol) MEDICATION WASTE Product Size: 1000 mg [...] to safe handling procedure PPE Matrix Sodium 0 No 250 mL, Memoria Chloride 4-30 Rate: [...] to safe handling procedure PPE Matrix Sodium 0 No 250 mL, Memoria Chloride 4-30 Rate: To l 0.9% 17:47: prime line [place] (titrate) 00 and flush 250 mL remaining blood products., Dosing Weight 63.636, kg, Route: IV, Total Volume: 250, Priority: Routine, Start Date: 10/24/20 12:47:00 CDT, Duration: 1 day, Stop date: 10/25/20 12:46:00 CDT, Replace Every: 24 hr, 0 Restoril No Notes: Memoria 4-30 (Same As: l 17:47: Restoril) [place] 00 [facility]:Reproduc tive risk [...] Memoria 4-30 (Same As: l 17:47: Restoril) [place] 00 [facility] 3:Reproduc tive risk [...] CDT, Replace Every: 24 hr, 0 Restoril 0 No Notes: Memoria 4-30 (Same As: l 17:47: Restoril) Jesús [facility] 3:Reproduc tive risk [facility] -- Refer to safe handling procedure PPE Matrix Sodium 2021-0 No 250 mL, Memoria Chloride 4-30 Rate: To l 0.9% 17:47: prime line [place] (titrate) 00 and flush 250 mL remaining blood products., Dosing Weight 63.636, kg, Route: IV, Total Volume: 250, Priority: Routine, Start Date: 10/24/20 12:47:00 CDT, Duration: 1 day, Stop date: 10/25/20 12:46:00 CDT, Replace Every: 24 hr, 0 temazepam Yes 30 mg = 1 Mem oria 30 mg oral 4-28 cap, PO, l capsule 20:07: Bedtime, Kishore n 00 PRN Sleep temazepam 0 Yes 30 mg = 1 Mem oria 30 mg oral 4-28 cap, PO, l capsule 20:07: Bedtime, Kishore n 00 PRN Sleep temazepam 0 Yes 30 mg = 1 Mem oria 30 mg oral 4-28 cap, PO, l capsule 20:07: Bedtime, Kishore n 00 PRN Sleep temazepam 0 Yes 30 mg = 1 Mem oria 30 mg oral 4-28 cap, PO, l capsule 20:07: Bedtime, Kishore n 00 PRN Sleep temazepam 0 Yes 30 mg = 1 Mem oria 30 mg oral 4-28 cap, PO, l capsule 20:07: Bedtime, Kishore n 00 PRN Sleep temazepam 2020-0 Yes 30 mg = 1 Mem oria 30 mg oral 4-28 cap, PO, l capsule 20:07: Bedtime, Kishore n 00 PRN Sleep Hydralazine Yes 50 mg = 1 M emoria Hydrochlori 4-28 tab, PO, l de 50 MG 20:04: Daily, OR Herm karina Oral Tablet 00 PRN Hydralazine 2020-0 Yes 50 mg = 1 M emoria Hydrochlori 4-28 tab, PO, l de 50 MG 20:04: Daily, OR Herm karina Oral Tablet 00 PRN Hydralazine 2020-0 Yes 50 mg = 1 M emoria Hydrochlori 4-28 tab, PO, l de 50 MG 20:04: Daily, OR Herm karina Oral Tablet 00 PRN Hydralazine 2020- Yes 50 mg = 1 M emoria [...] 4-28 tab, PO, l tablet 20:02: Bedtime simvastatin Yes 20 mg = 1 M emoria 20 mg oral 4-28 tab, PO, l tablet 20:02: Bedtime simvastatin Yes 20 mg = 1 M emoria 20 mg oral 4-28 tab, PO, l tablet 20:02: Bedtime simvastatin Yes 20 mg = 1 M emoria 20 mg oral 4-28 tab, PO, l tablet 20:02: Bedtime simvastatin Yes 20 mg = 1 M emoria 20 mg oral 4-28 tab, PO, l tablet 20:02: Bedtime simvastatin Yes 20 mg = 1 M emoria 20 mg oral 4-28 tab, PO, l tablet 20:02: Bedtime Omnipaque No Notes: Memori a 350 3-25 [...] Trash Bin carvedilol No Notes: Memor ia 11-19 Give with l 02:00: food. Jesús 00 (Same As: Coreg) carvedilol 2018-0 No Notes: Memor ia 5-26 Give with l 02:00: food. (Same As: Coreg) carvedilol 2017-0 No Notes: Memor ia 5-26 Give with l 02:00: food. (Same As: Coreg) carvedilol 0 No Notes: Memor ia 5-26 Give with l 02:00: food. (Same As: Coreg) carvedilol No Notes: Memor ia 5-26 Give with l 02:00: food. (Same As: Coreg) carvedilol 0 No Notes: Memor ia 5-26 Give with l 02:00: food. (Same As: Coreg) lisinopril 2017-0 Yes 20 mg = 1 Me moria 20 mg oral 5-25 tab, PO, l tablet 21:54: Daily, # Jesú[place] 00 30 tab, 0 Refill(s), Pharmacy: [id number] labetalol 2018-0 Yes 100 mg = 1 Me moria 100 mg oral 5-25 tab, PO, l tablet 21:54: Q12H, # 60 Lilian nn 00 tab, 0 Refill(s), Pharmacy: [facility] #[id number] lisinopril 2018-0 Yes 20 mg = 1 Me moria 20 mg oral 5-25 tab, PO, l tablet 21:54: Daily, # [place] 00 30 tab, 0 Refill(s), Pharmacy: [facility] #[id number] labetalol 2018-0 Yes 100 mg = 1 Me moria 100 mg oral 5-25 tab, PO, l tablet 21:54: Q12H, # 60 Lilian nn 00 tab, 0 Refill(s), Pharmacy: [facility] #[id number] lisinopril 2018-0 Yes 20 mg = 1 Me moria 20 mg oral 5-25 tab, PO, l tablet 21:54: Daily, # [place] 00 30 tab, 0 Refill(s), Pharmacy: [facility] #[id number] labetalol 2018-0 Yes 100 mg = 1 Me moria 100 mg oral 5-25 tab, PO, l tablet 21:54: Q12H, # 60 Lilian nn 00 tab, 0 Refill(s), Pharmacy: [facility] #[id number] lisinopril 2018-0 Yes 20 mg = 1 Me moria 20 mg oral 5-25 tab, PO, l tablet 21:54: Daily, # [place] 00 30 tab, 0 Refill(s), Pharmacy: [facility] #[id number] labetalol 2018-0 Yes 100 mg = 1 Me moria 100 mg oral 5-25 tab, PO, l tablet 21:54: Q12H, # 60 Lilian nn 00 tab, 0 Refill(s), Pharmacy: [facility] #[id number] lisinopril 2018-0 Yes 20 mg = 1 Me moria 20 mg oral 5-25 tab, PO, l tablet 21:54: Daily, # Jesú[place] 00 30 tab, 0 Refill(s), Pharmacy: [facility] #[id number] labetalol 2018-0 Yes 100 mg = 1 Me moria 100 mg oral 5-25 tab, PO, l tablet 21:54: Q12H, # 60 Lilian nn 00 tab, 0 Refill(s), Pharmacy: [facility] #[id number] lisinopril 2018-0 Yes 20 mg = 1 Me moria 20 mg oral 5-25 tab, PO, l tablet 21:54: Daily, # [place] 00 30 tab, 0 Refill(s), Pharmacy: [facility] #[id number] labetalol 2018-0 Yes 100 mg = 1 Me moria 100 mg oral 5-25 tab, PO, l tablet 21:54: Q12H, # 60 Lilian nn 00 tab, 0 Refill(s), Pharmacy: [facility] #[id number] Labetalol 0 No Notes: Memori a 5-25 With food. l 20:55: (Same Jesús 00 as:Trandat e, Normodyne) Lisinopril 0 No Notes: Memor ia 5-25 (Same as: l 20:55: Prinivil, [place] 00 Zestril) Labetalol 0 No Notes: Memori a 5-25 With food. l 20:55: (Same [place] 00 as:Trandat e, Normodyne) Lisinopril 0 No Notes: Memor ia 5-25 (Same as: l 20:55: Prinivil, [place] 00 Zestril) Labetalol 0 No Notes: Memori a 5-25 With food. l 20:55: (Same Jesús 00 as:Trandat e, Normodyne) Lisinopril 0 No Notes: Memor ia 5-25 (Same as: l 20:55: Prinivil, [place] 00 Zestril) Labetalol 0 No Notes: Memori a 5-25 With food. l 20:55: (Same Jes[place] 00 as:Trandat e, Normodyne) Lisinopril 0 No Notes: Memor ia 5-25 (Same as: l 20:55: Prinivil, [place] 00 Zestril) Labetalol 0 No Notes: Memori a 5-25 With food. l 20:55: (Same [place] 00 as:Trandat e, Normodyne) Lisinopril 0 No Notes: Memor ia 5-25 (Same as: l 20:55: Prinivil, [place] 00 Zestril) Labetalol No Notes: Memori a 5-25 With food. l 20:55: (Same [place] 00 as:Trandat e, Normodyne) Lisinopril 0 No Notes: Memor ia 5-25 (Same as: l 20:55: Prinivil, [place] 00 Zestril) carvedilol 0 No 12.5 mg, Mem oria 12.5 mg 5-25 PO, Q12H, l oral tablet 16:55: # 60 tab, H [place] 00 0 Refill(s), Pharmacy: [facility] #[id number] carvedilol 2017-0 No 12.5 mg, Mem oria 12.5 mg 5-25 PO, Q12H, l oral tablet 16:55: # 60 tab, H [place] 00 0 Refill(s), Pharmacy: [facility] #[id number] carvedilol 2017-0 No 12.5 mg, Mem oria 12.5 mg 5-25 PO, Q12H, l oral tablet 16:55: # 60 tab, H ermann 00 0 Refill(s), Pharmacy: [facility] #[id number] carvedilol 2017-0 No 12.5 mg, Mem oria 12.5 mg 5-25 PO, Q12H, l oral tablet 16:55: # 60 tab, H ermann 00 0 Refill(s), Pharmacy: [facility] ([facility] cy #[id number] carvedilol 2018-0 No 12.5 mg, Mem oria 12.5 mg 5-25 PO, Q12H, l oral tablet 16:55: # 60 tab, H ermann 00 0 Refill(s), Pharmacy: [facility] ([facility]) cy #[id number] carvedilol 2017-0 No 12.5 mg, Mem oria 12.5 mg 5-25 PO, Q12H, l oral tablet 16:55: # 60 tab, H ermann 00 0 Refill(s), Pharmacy: [facility] ([facility]) cy #[id number] Lovenox 2017-0 No Notes: Memoria 5-24 (Same as: l 22:00: Lovenox) pharmacy re-entry for dosing time adjustment Lovenox 2017-0 No Notes: Memoria 5-24 (Same as: l 22:00: Lovenox) pharmacy re-entry for dosing time adjustment Lovenox 2017-0 No Notes: Memoria 5-24 (Same as: l 22:00: Lovenox) pharmacy re-entry for dosing time adjustment Lovenox 2017-0 No Notes: Memoria 5-24 (Same as: l 22:00: Lovenox) pharmacy re-entry for dosing time adjustment Lovenox 2017-0 No Notes: Memoria 5-24 (Same as: l 22:00: Lovenox) pharmacy re-entry for dosing time adjustment Lovenox 2017-0 No Notes: Memoria 5-24 (Same as: l 22:00: Lovenox) pharmacy re-entry for dosing time adjustment Trazodone 2017-0 No Notes: Memori a 5-24 (Same As: l 02:00: Desyrel) Trazodone 2017-0 No Notes: Memori a 5-24 (Same As: l 02:00: Desyrel) Trazodone 2017-0 No Notes: Memori a 5-24 (Same As: l 02:00: Desyrel) Trazodone 2017-0 No Notes: Memori a 5-24 (Same As: l 02:00: Desyrel) [place] Trazodone No Notes: Memori a 5-24 (Same As: l 02:00: Desyrel) [place] Trazodone No Notes: Memori a 5-24 (Same As: l 02:00: Desyrel) [place] 00 Streptococc No Notes: Hossein diana us 11-16 Shake well l pneumoniae 21:23: prior to Her [place]ckee serotype 1 25 use (Same capsular as: antigen Prevnar diphtheria 13) [id number] protein conjugate vaccine / Streptococc us pneumoniae serotype 14 capsular antigen diphtheria [id number] protein conjugate vaccine / Streptococc us pneumoniae serotype 18C capsular antigen d Streptococc No Notes: Hossein diana us 11-16 Shake well l pneumoniae 21:23: prior to Her [place] serotype 1 25 use (Same capsular as: antigen Prevnar diphtheria 13) [id number] protein conjugate vaccine / Streptococc us pneumoniae serotype 14 capsular antigen diphtheria [id number] protein conjugate vaccine / Streptococc us pneumoniae serotype 18C capsular antigen d Streptococc No Notes: Hossein diana us - Shake well l pneumoniae 21:23: prior to Her [place] serotype 1 25 use (Same capsular as: antigen Prevnar diphtheria 13) [id number] protein conjugate vaccine / Streptococc us pneumoniae serotype 14 capsular antigen diphtheria [id number] protein conjugate vaccine / Streptococc us pneumoniae serotype 18C capsular antigen d Streptococc No Notes: Hossein diana us 11-16 Shake well l pneumoniae 21:23: prior to Her [place] serotype 1 25 use (Same capsular as: antigen Prevnar diphtheria 13) [id number] protein conjugate vaccine / Streptococc us pneumoniae serotype 14 capsular antigen diphtheria [id number] protein conjugate vaccine / Streptococc us pneumoniae serotype 18C capsular antigen d Streptococc No Notes: Hossein diana us - Shake well l pneumoniae 21:23: prior to Her [place] serotype 1 25 use (Same capsular as: antigen Prevnar diphtheria 13) [id number] protein conjugate vaccine / Streptococc us pneumoniae serotype 14 capsular antigen diphtheria [id number] protein conjugate vaccine / Streptococc us pneumoniae serotype 18C capsular antigen d Streptococc No Notes: Hossein diana us - Shake well l pneumoniae 21:23: prior to Her [place] serotype 1 25 use (Same capsular as: antigen Prevnar diphtheria 13) [id number] protein conjugate vaccine / Streptococc us pneumoniae serotype 14 capsular antigen diphtheria [id number] protein conjugate vaccine / Streptococc us pneumoniae serotype 18C capsular antigen d Omnipaque 2018-0 No 45 Memoria 350 5-23 mL/min, l injectable 17:01: STAT, Kishore n solution 00 Start date: 11/16/17 12:01:00 CDT, Duration: 1 doses or times Omnipaque 2017-0 No 45 Memoria 350 5-23 mL/min, l injectable 17:01: STAT, Kishore n solution Start date: 11/16/17 12:01:00 CDT, Duration: 1 doses or times Omnipaque 2017-0 No 45 Memoria 350 5-23 mL/min, l injectable 17:01: STAT, Kishore n solution Start date: 11/16/17 12:01:00 CDT, Duration: 1 doses or times Omnipaque 2017-0 No 45 Memoria 350 5-23 mL/min, l injectable 17:01: STAT, Kishore n solution Start date: 11/16/17 12:01:00 CDT, Duration: 1 doses or times Omnipaque 2017-0 No 45 Memoria 350 5-23 mL/min, l injectable 17:01: STAT, Kishore n solution Start date: 11/16/17 12:01:00 CDT, Duration: 1 doses or times Omnipaque 2017-0 No 45 Memoria 350 5-23 mL/min, l injectable 17:01: STAT, Kishore n solution Start date: 11/16/17 12:01:00 CDT, Duration: 1 doses or times Lovenox 2017-0 No Notes: Memoria 5-22 (Same as: l 22:00: Lovenox) pharmacy re-entry for dosing time adjustment Lovenox 2017-0 No Notes: Memoria 5-22 (Same as: l 22:00: Lovenox) pharmacy re-entry for dosing time adjustment Lovenox 2018-0 No Notes: Memoria 5-22 (Same as: l 22:00: Lovenox) pharmacy re-entry for dosing time adjustment Lovenox 2018-0 No Notes: Memoria 5-22 (Same as: l 22:00: Lovenox) [place] 00 pharmacy re-entry for dosing time adjustment Lovenox 2017-0 No Notes: Memoria 5-22 (Same as: l 22:00: Lovenox) [place] 00 pharmacy re-entry for dosing time adjustment Lovenox 2017-0 No Notes: Memoria 5-22 (Same as: l 22:00: Lovenox) [place] 00 pharmacy re-entry for dosing time adjustment pantoprazol 0 No Notes: Hossein diana e 5-22 Tablet l 21:30: should not Jesús 00 be chewed or crushed. (Same as: Protonix) pantoprazol 0 No Notes: Hossein diana e 5-22 Tablet l 21:30: should not [place] 00 be chewed or crushed. (Same as: Protonix) pantoprazol 0 No Notes: Hossein diana e 5-22 Tablet l 21:30: should not [place] 00 be chewed or crushed. (Same as: Protonix) pantoprazol 0 No Notes: Hossein diana e 5-22 Tablet l 21:30: should not [place] 00 be chewed or crushed. (Same as: Protonix) pantoprazol 0 No Notes: Hossein diana e 5-22 Tablet l 21:30: should not [place] 00 be chewed or crushed. (Same as: Protonix) pantoprazol 0 No Notes: Hossein diana e 5-22 Tablet l 21:30: should not [place] 00 be chewed or crushed. (Same as: Protonix) Lasix No Notes: Memoria - (Same as: l 14:40: Lasix) Jes[place]s 00 MEDICATION WASTE Product Size: 40 mg Product Wasted: ___ mg Lasix 2017-0 No Notes: Memoria -22 (Same as: l 14:40: Lasix) [place] 00 MEDICATION WASTE Product Size: 40 mg Product Wasted: ___ mg Lasix 2017-0 No Notes: Memoria -22 (Same as: l 14:40: Lasix) [place] 00 MEDICATION WASTE Product Size: 40 mg Product Wasted: ___ mg Lasix 2017-0 No Notes: Memoria -22 (Same as: l 14:40: Lasix) [place] 00 MEDICATION WASTE Product Size: 40 mg Product Wasted: ___ mg Lasix 2017-0 No Notes: Memoria 5-22 (Same as: l 14:40: Lasix) MEDICATION WASTE Product Size: 40 mg Product Wasted: ___ mg Lasix 0 No Notes: Memoria 5-22 (Same as: l 14:40: Lasix) MEDICATION WASTE Product Size: 40 mg Product Wasted: ___ mg Vitamin B12 2017- No 2,500 Memor ia 5-22 microgram, l 14:00: Route: Drug form: TAB, Daily, Dosing Weight 61.818, kg, Start date: 11/15/17 9:00:00 CDT, Duration: 30 day, Stop date: 12/14/17 9:00:00 CDT celecoxib 0 No Notes: Memori a 5-22 NSAID. l 14:00: Please check indication . Not for seizure. (Same As: CeleBREX) Aspirin No Notes: Memoria 5-22 Take with l 14:00: food. Vitamin B12 No 2,500 Memor ia 5-22 microgram, l 14:00: Route: Drug form: TAB, Daily, Dosing Weight 61.818, kg, Start date: 11/15/17 9:00:00 CDT, Duration: 30 day, Stop date: 12/14/17 9:00:00 CDT celecoxib 0 No Notes: Memori a 5-22 NSAID. l 14:00: Please check indication . Not for seizure. (Same As: CeleBREX) Aspirin 0 No Notes: Memoria 5-22 Take with l 14:00: food. Vitamin B12 No 2,500 Memor ia 5-22 microgram, l 14:00: Route: Drug form: TAB, Daily, Dosing Weight 61.818, kg, Start date: 11/15/17 9:00:00 CDT, Duration: 30 day, Stop date: 12/14/17 9:00:00 CDT celecoxib 2018-0 No Notes: Memori a 5-22 NSAID. l 14:00: Please [place] 00 check indication . Not for seizure. [...] Memori a 5-22 NSAID. l 14:00: Please check indication . Not for seizure. (Same As: CeleBREX) Aspirin No Notes: Memoria 5-22 Take with l 14:00: food. Vitamin B12 No 2,500 Memor ia 5-22 microgram, l 14:00: Route: Drug form: TAB, Daily, Dosing Weight 61.818, kg, Start date: 11/15/17 9:00:00 CDT, Duration: 30 day, Stop date: 12/14/17 9:00:00 CDT celecoxib 20180 No Notes: Memori a 5-22 NSAID. l 14:00: Please [place] 00 check indication . Not for seizure. (Same As: CeleBREX) Aspirin No Notes: Memoria 5-22 Take with l 14:00: food. Thyroxine No Notes: Memori a 5-22 Take 1 l 11:30: hour [place] 00 before or 2 hours after meal; [...] a 5-22 Take 1 l 11:30: hour [place] 00 before or 2 hours after meal; [...] a 5-22 Take 1 l 11:30: hour [place] 00 before or 2 hours after meal; Enteral feeds may interefere with the absorption of this medication .(Same as:Levothr oid, Synthroid) Phenergan No Notes: Do Mem oria 5-22 not give l 07:25: IV push. Jesús (Same as: Phenergan) Phenergan No Notes: Do Mem oria 5-22 not give l 07:25: IV push. Jes[place]s 00 (Same as: Phenergan) Phenergan No Notes: Do Mem oria 5-22 not give l 07:25: IV push. [place] 00 (Same as: Phenergan) Phenergan No Notes: Do Mem oria 5-22 not give l 07:25: IV push. [place] 00 (Same as: Phenergan) Phenergan No Notes: Do Mem oria 5-22 not give l 07:25: IV push. [place] 00 (Same as: Phenergan) Phenergan No Notes: Do Mem oria 5-22 not give l 07:25: IV push. [place] 00 (Same as: Phenergan) Albuterol No Notes: Memori a 0.833 MG/ML 5-22 (Same as: 07:00: Duoneb) [place] Ipratropium 00 [place] 0.167 MG/ML Inhalant Solution [DuoNeb] Albuterol No Notes: Memori a 0.833 MG/ML 5-22 (Same as: :00: Duoneb) [place] Ipratropium 00 [place] 0.167 MG/ML Inhalant Solution [DuoNeb] Albuterol No Notes: Memori a 0.833 MG/ML 5-22 (Same as: :00: Duoneb) [place] Ipratropium 00 [place] 0.167 MG/ML Inhalant Solution [DuoNeb] Albuterol No Notes: Memori a 0.833 MG/ML 5-22 (Same as: :: Duoneb) [place] Ipratropium 00 [place] 0.167 MG/ML Inhalant Solution [DuoNeb] Albuterol No Notes: Memori a 0.833 MG/ML 5-22 (Same as: :: Duoneb) [place] Ipratropium 00 [place] 0.167 MG/ML Inhalant Solution [DuoNeb] Albuterol No Notes: Memori a 0.833 MG/ML 5-22 (Same as: :00: Duoneb) [place] Ipratropium 00 [place] 0.167 MG/ML Inhalant Solution [DuoNeb] cefuroxime No Notes: Memor ia + sterile 5-22 (Same As: l water 20 mL 06:00: Jonas Mcbride Zinacef) MEDICATION WASTE Product Size: 1500 mg Product Wasted: _0__ mg cefuroxime No Notes: Memor ia + sterile 5-22 (Same As: l water 20 mL 06:00: Jonas Mcbride Zinacef) MEDICATION WASTE Product Size: 1500 mg Product Wasted: _0__ mg cefuroxime No Notes: Memor ia + sterile 5-22 (Same As: l water 20 mL 06:00: [facility] nac) MEDICATION WASTE Product Size: 1500 mg Product Wasted: _0__ mg cefuroxime No Notes: Memor ia + sterile 5-22 (Same As: l water 20 mL 06:00: [facility] nac) MEDICATION WASTE Product Size: 1500 mg Product Wasted: _0__ mg cefuroxime No Notes: Memor ia + sterile 5-22 (Same As: l water 20 mL 06:00: [facility] nac) MEDICATION WASTE Product Size: 1500 mg Product Wasted: _0__ mg cefuroxime No Notes: Memor ia + sterile 5-22 (Same As: l water 20 mL 06:00: [facility] nac) MEDICATION WASTE Product Size: 1500 mg Product Wasted: _0__ mg ocular No Notes: Memoria lubricant 5-22 (Same as: l 05:00: Lacri-Lube Jesús 00 , Duratears Naturale, Artificial Tears, and Tears Again ) ocular No Notes: Memoria lubricant 5-22 (Same as: l 05:00: Lacri-Lube [place] 00 , Duratears [place], Artificial Tears, and Tears Again ) ocular No Notes: Memoria lubricant 5-22 (Same as: l 05:00: Lacri-Lube [place] 00 , Duratears [place], Artificial Tears, and Tears Again ) ocular No Notes: Memoria lubricant 5-22 (Same as: l 05:00: Lacri-Lube [place] 00 , Duratears [place], Artificial Tears, and Tears Again ) ocular No Notes: Memoria lubricant 5-22 (Same as: l 05:00: Lacri-Lube [place] 00 , Duratears [place], Artificial Tears, and Tears Again ) ocular No Notes: Memoria lubricant -22 (Same as: l 05:00: Lacri-Lube [place] 00 , Duratears Naturale, Artificial Tears, and Tears Again ) Norepinephr No Notes: Hossein diana ine 5-22 Same as: l 02:27: Levophed. [place] 00 Administer by either central venous catheter or peripheral ly-inserte d central catheter (PICC) line. Concentrat ion: 0.032 mg / mL Norepinephr No Notes: Hossein diana ine 5-22 Same as: l 02:27: Levophed. [place] 00 Administer by either central venous catheter or peripheral ly-inserte d central catheter (PICC) line. Concentrat ion: 0.032 mg / mL Norepinephr No Notes: Hossein diana ine 5-22 Same as: l 02:27: Levophed. [place] 00 Administer by either central venous catheter or peripheral ly-inserte d central catheter (PICC) line. Concentrat ion: 0.032 mg / mL Norepinephr No Notes: Hossein diana ine 5-22 Same as: l 02:27: Levophed. [place] 00 [...] mL Norepinephr No Notes: Hossein diana ine 5-22 Same as: l 02:27: Levophed. [place] 00 Administer by either central venous catheter or peripheral ly-inserte d central catheter (PICC) line. Concentrat ion: 0.032 mg / mL famotidine No Notes: Memor ia -22 (Same as: l 02:00: Pepcid) [place] 00 Can be dilute in 5-10cc NS IVP: Slow IV push over at least 2 minutes. chlorhexidi No Notes: Hossein diana ne -22 (Same As: l gluconate 02:00: Peridex) Herm karina 1.2 MG/ML 00 Mouthwash Famotidine No 20 mg, Memor ia 5-22 Route: l 02:00: IVP, Q12H, [place] Dosing Weight 61.818, kg, Start date: 11/14/17 21:00:00 CDT, Duration: 30 day, Stop date: 12/14/17 9:00:00 CDT Saline No Notes: Memoria Flush 0.9% 5-22 (Same as: l 02:00: BD [place] 00 Posiflush) Labetalol No Notes: Memori a 5-22 With food. l 02:00: (Same Jes[place] 00 as:Trandat e, Normodyne) Simvastatin No Notes: Hossein diana 5-22 (Same as: l 02:00: Zocor) [place] 00 famotidine No Notes: Memor ia 5-22 (Same as: l 02:00: Pepcid) [place] 00 Can be dilute in 5-10cc NS IVP: Slow IV push over at least 2 minutes. chlorhexidi No Notes: Hossein diana ne 5-22 (Same As: l gluconate 02:00: Peridex) Herm karina 1.2 MG/ML 00 Mouthwash Famotidine No 20 mg, Memor ia 5-22 Route: l 02:00: IVP, Q12H, [place] Dosing Weight 61.818, kg, Start date: 11/14/17 21:00:00 CDT, Duration: 30 day, Stop date: 12/14/17 9:00:00 CDT Saline No Notes: Memoria Flush 0.9% 5-22 (Same as: l 02:00: BD [place] 00 Posiflush) Labetalol No Notes: Memori a 5-22 With food. l 02:00: (Same [place] 00 as:Trandat e, Normodyne) Simvastatin No Notes: Hossein diana 5-22 (Same as: l 02:00: Zocor) [place] 00 famotidine No Notes: Memor ia 5-22 (Same as: l 02:00: Pepcid) [place] 00 Can be dilute in 5-10cc NS IVP: Slow IV push over at least 2 minutes. chlorhexidi No Notes: Hossein diana ne 5-22 (Same As: l gluconate 02:00: Peridex) Herm karina 1.2 MG/ML 00 Mouthwash Famotidine No 20 mg, Memor ia 5-22 Route: l 02:00: IVP, Q12H, [place] 00 Dosing Weight 61.818, kg, Start date: 11/14/17 21:00:00 CDT, Duration: 30 day, Stop date: 12/14/17 9:00:00 CDT Saline No Notes: Memoria Flush 0.9% 5-22 (Same as: l 02:00: BD Ejsús 00 Posiflush) Labetalol No Notes: Memori a 5-22 With food. l 02:00: (Same [place] 00 as:Trandat e, Normodyne) Simvastatin No Notes: Hossein diana 5-22 (Same as: l 02:00: Zocor) [place] famotidine No Notes: Memor ia 5-22 (Same as: l 02:00: Pepcid) [place] 00 Can be dilute in 5-10cc NS IVP: Slow IV push over at least 2 minutes. chlorhexidi No Notes: Hossein diana ne 5-22 (Same As: l gluconate 02:00: Peridex) Herm karina 1.2 MG/ML 00 Mouthwash Famotidine No 20 mg, Memor ia 5-22 Route: l 02:00: IVP, Q12H, Dosing Weight 61.818, kg, Start date: 11/14/17 21:00:00 CDT, Duration: 30 day, Stop date: 12/14/17 9:00:00 CDT Saline No Notes: Memoria Flush 0.9% 5-22 (Same as: l 02:00: BD [place] 00 Posiflush) Labetalol No Notes: Memori a 5-22 With food. l 02:00: (Same [place] 00 as:Trandat e, Normodyne) Simvastatin No Notes: Hossein diana 5-22 (Same as: l 02:00: Zocor) [place] 00 famotidine No Notes: Memor ia 5-22 (Same as: l 02:00: Pepcid) [place] 00 Can be dilute in 5-10cc NS IVP: Slow IV push over at least 2 minutes. chlorhexidi No Notes: Hossein diana ne 5-22 (Same As: l gluconate 02:00: Peridex) Herm karina 1.2 MG/ML 00 Mouthwash Famotidine No 20 mg, Memor ia 5-22 Route: l 02:00: IVP, Q12H, [place] Dosing Weight 61.818, kg, Start date: 11/14/17 21:00:00 CDT, Duration: 30 day, Stop date: 12/14/17 9:00:00 CDT Saline No Notes: Memoria Flush 0.9% 5-22 (Same as: l 02:00: BD [place] Posiflush) Labetalol No Notes: Memori a 5-22 With food. l 02:00: (Same [place] 00 as:Trandat e, Normodyne) Simvastatin No Notes: [...] Herm karina 1.2 MG/ML 00 Mouthwash Famotidine 0 No 20 mg, Memor ia 5-22 Route: l 02:00: IVP, Q12H, [place] Dosing Weight 61.818, kg, Start date: 11/14/17 21:00:00 CDT, Duration: 30 day, Stop date: 12/14/17 9:00:00 CDT Saline No Notes: Memoria Flush 0.9% 5-22 (Same as: l 02:00: BD [place] Posiflush) Labetalol 2018-0 No Notes: Memori a 11-15 With food. l 02:00: (Same [place] 00 as:Trandat e, Normodyne) Simvastatin 2017-0 No Notes: Hossein diana 11-15 (Same as: l 02:00: Zocor) [place] 00 glucagon 2018-0 No 1 mg, Memoria 11-15 Route: l 01:29: INJ, Drug Jesús form: PDR/INJ, PRN, PRN Blood Glucose Results, Start date: 11/14/17 20:29:00 CDT, Duration: 30 day, Stop date: 12/14/17 20:28:00 CDT glucagon 2017-0 No 1 mg, Memoria 11-15 Route: l 01:29: INJ, Drug Jesús form: PDR/INJ, PRN, PRN Blood Glucose Results, Start date: 11/14/17 20:29:00 CDT, Duration: 30 day, Stop date: 12/14/17 20:28:00 CDT glucagon 2017-0 No 1 mg, Memoria 11-15 Route: l 01:29: INJ, Drug Jesús form: PDR/INJ, PRN, PRN Blood Glucose Results, Start date: 11/14/17 20:29:00 CDT, Duration: 30 day, Stop date: 12/14/17 20:28:00 CDT glucagon 2018-0 No 1 mg, Memoria - Route: l 01:29: INJ, Drug Jes[place] 00 form: PDR/INJ, PRN, PRN Blood Glucose Results, Start date: 11/14/17 20:29:00 CDT, Duration: 30 day, Stop date: 12/14/17 20:28:00 CDT glucagon 2018-0 No 1 mg, Memoria 5- Route: l 01:29: INJ, Drug Jesú[place] 00 form: PDR/INJ, PRN, PRN Blood Glucose Results, Start date: 11/14/17 20:29:00 CDT, Duration: 30 day, Stop date: 12/14/17 20:28:00 CDT glucagon 2017-0 No 1 mg, Memoria 11-15 Route: l 01:29: INJ, Drug Jesú[place] 00 form: PDR/INJ, PRN, PRN Blood Glucose Results, Start date: 11/14/17 20:29:00 CDT, Duration: 30 day, Stop date: 12/14/17 20:28:00 CDT Dextrose 0 No 50 mL, Memoria 50% in 11-15 Route: l Water IV 01:28: IVP, Start Her [place] date: 11/14/17 20:28:00 CDT, Duration: 30 day, Stop date: 12/14/17 20:27:00 CDT, [facility]N [facility] Mem[facility] 11-15 (Same as: l : Humalog ) [place] 00 Roll in palms of hands gently; Do not shake `vigorousl y. "Single Patient Use Only " WASTE: F/P - Black; E - Municipal Trash Bin Stable for 28 days at room temperatur e. Expires in days from ____Date Dextrose 0 No 50 mL, Memoria 50% in 11-15 Route: l Water IV 01:28: IVP, Start Her date: 11/14/17 20:28:00 CDT, Duration: 30 day, Stop date: 12/14/17 20:27:00 CDT, PRN [facility]: Memoria 11-15 (Same as: l : alog ) [place] 00 Roll in palms of hands gently; Do not shake `vigorousl y. "Single Patient Use Only " WASTE: F/P - Black; E - Municipal Trash Bin Stable for 28 days at room temperatur e. Expires in days from ____Date Dextrose 0 No 50 mL, Memoria 50% in 11-15 Route: l Water IV 01:28: IVP, Start Her date: 11/14/17 20:28:00 CDT, Duration: 30 day, Stop date: 12/14/17 20:27:00 CDT, PRN Blood Glucose Results Humalog No Notes: Memoria 11-15 (Same as: l : Humalog ) [place] 00 Roll in palms of hands gently; [...] No Notes: Memoria 11-15 (Same as: l : Humalog ) [place] 00 Roll in palms of hands gently; Do not shake `vigorousl y. "Single Patient Use Only " WASTE: F/P - Black; E - Municipal Trash Bin Stable for 28 days at room temperatur e. Expires in days from ____Date Dextrose 0 No 50 mL, Memoria 50% in 11-15 Route: l Water IV :28: IVP, Start Her [place] date: 11/14/17 20:28:00 CDT, Duration: 30 day, Stop date: 12/14/17 20:27:00 CDT, PRN Blood Glucose Results Humalog No Notes: Memoria 11-15 (Same as: l : Humalog ) [place] 00 Roll in palms of hands gently; [...] No Notes: Memoria 11-15 (Same as: l : Humalog ) [place] 00 Roll in palms of hands gently; Do not shake `vigorousl y. "Single Patient Use Only " WASTE: F/P - Black; E - Municipal Trash Bin Stable for 28 days at room temperatur e. Expires in days from ____Date Humalog No Notes: Memoria 11-15 (Same as: : Humalog ) [place] 00 Roll in palms of hands gently; Do not shake `vigorousl y. "Single Patient Use Only " WASTE: F/P - Black; E - Municipal Trash Bin Stable for 28 days at room temperatur e. Expires in days from ____Date Humalog No Notes: Memoria 11-15 (Same as: : Humalog ) [place] 00 Roll in palms of hands gently; Do not shake `vigorousl y. "Single Patient Use Only " WASTE: F/P - Black; E - Municipal Trash Bin Stable for 28 days at room temperatur e. Expires in days from ____Date Humalog No Notes: Memoria 11-15 (Same as: : alog ) [place] 00 Roll in palms of hands gently; Do not shake `vigorousl y. "Single Patient Use Only " WASTE: F/P - Black; E - Municipal Trash Bin Stable for 28 days at room temperatur e. Expires in days from ____Date Humalog No Notes: Memoria 11-15 (Same as: : Humalog ) [place] 00 Roll in palms of hands gently; Do not shake `vigorousl y. "Single Patient Use Only " WASTE: F/P - Black; E - Municipal Trash Bin Stable for 28 days at room temperatur e. Expires in days from ____Date Humalog No Notes: Memoria 11-15 (Same as: : Humalog ) [place] 00 Roll in palms of hands gently; Do not shake `vigorousl y. "Single Patient Use Only " WASTE: F/P - Black; E - Municipal Trash Bin Stable for 28 days at room temperatur e. Expires in days from ____Date Humalog No Notes: Memoria 5-22 (Same as: l 01:27: Humalog ) [place] 00 Roll in palms of hands gently; [...] Mouthwash Potassium No Notes: Memori a Chloride - (Same as: l 01:10: Potassium [place] 00 Chloride) potassium No Notes: Memori a phosphate -22 (Same as: l 01:10: K [place] 00 Phosphate. ) 1 mMol phoshate has 1.47 mEq potassium Infuse over 4 hours sodium No 30 mmol, Memoria phosphate 5-22 10 mL, l 01:10: Route: [place] 00 IVPB, PRN, Dosing Weight 61.818, kg, PRN Abnormal Lab Result, Start date: 11/14/17 20:10:00 CDT, Duration: 30 day, Stop date: 12/14/17 20:09:00 CDT, FOR ICU USE ONLY Calcium No Notes: Memoria Carbonate -22 (Same As: l 500 MG 01:10: Tums) Jesús Chewable 00 Calcium Tablet Carbonate 500 mg = 200 mg elemental calcium Dose = mg calcium carbonate ( mg elemental calcium) Magnesium No Notes: Memori a Oxide -22 (Same as: l 01:10: Mag-Ox [place] 00 400) Magnesium oxide [id number] g elemental magnesium Dose=____m g magnesium oxide (___mg elemental magnesium) Calcium No Notes: Memoria Gluconate 11-15 WASTE: F/P l 01:10: - Sink; E [place] - Municipal Trash Bin Magnesium No Notes: Memori a Sulfate 11-15 WASTE: F/P l 01:10: - Sink; E [place] - Municipal Trash Bin potassium No Notes: Memori a phosphate-s 11-15 (Same as: l odium 01:10: Phos-NaK) Jesús phosphate 00 Each 1.5 250 mg-280 gm pkt has mg-160 mg 250mg oral powder phosphorou for s. Mix reconstitut w/2.5oz ion water and stir. Fentanyl No Notes: Memoria - Concentrat l 01:10: ion: 5 Jes[place] 00 microgram / ml Saline No Notes: Memoria Flush 0.9% 11-15 (Same as: l 01:10: BD Jes[place] Posiflush) chlorhexidi No Notes: Hossien diana ne 11-15 (Same As: l gluconate 01:10: Peridex) Herm karina 1.2 MG/ML 00 Mouthwash Potassium No Notes: Memori a Chloride 11-15 (Same as: l 01:10: Potassium Chloride) potassium No Notes: Memori a phosphate 11-15 (Same as: l 01:10: K [place] 00 Phosphate. ) 1 mMol phoshate has 1.47 mEq potassium Infuse over 4 hours sodium No 30 mmol, Memoria phosphate -22 10 mL, l 01:10: Route: [place] 00 IVPB, PRN, Dosing Weight 61.818, kg, PRN Abnormal Lab Result, Start date: 11/14/17 20:10:00 CDT, Duration: 30 day, Stop date: 12/14/17 20:09:00 CDT, FOR ICU USE ONLY Calcium No Notes: Memoria Carbonate - (Same As: l 500 MG 01:10: Tums) Jes[place]s Chewable 00 Calcium Tablet Carbonate 500 mg = 200 mg elemental calcium Dose = mg calcium carbonate ( mg elemental calcium) Magnesium No Notes: Memori a Oxide -22 (Same as: l 01:10: Mag-Ox [place] 00 400) Magnesium oxide [id number] g elemental magnesium Dose=____m g magnesium oxide (___mg elemental magnesium) Calcium No Notes: Memoria Gluconate 11-15 WASTE: F/P l 01:10: - Sink; E [place] - [facility] Trash Bin Magnesium No Notes: Memori a Sulfate 11-15 WASTE: F/P l 01:10: - Sink; E [place] - [facility] Trash Bin potassium No Notes: Memori a phosphate-s 11-15 (Same as: l odium 01:10: Phos-NaK) Jes[place]s phosphate 00 Each 1.5 250 mg-280 gm pkt has mg-160 mg 250mg oral powder phosphorou for s. Mix reconstitut w/2.5oz ion water and stir. Fentanyl No Notes: Memoria - Concentrat l 01:10: ion: 5 [place] 00 microgram / ml Saline No Notes: Memoria Flush 0.9% 11-15 (Same as: l 01:10: BD Jes[place]s 00 Posiflush) chlorhexidi No Notes: Hossein diana ne 11-15 (Same As: l gluconate 01:10: Peridex) Herm karina 1.2 MG/ML Mouthwash Potassium No Notes: Memori a Chloride 11-15 (Same as: l 01:10: Potassium Chloride) potassium No Notes: Memori a phosphate 11-15 (Same as: l 01:10: K Phosphate. ) 1 mMol phoshate has 1.47 mEq potassium Infuse over 4 hours sodium No 30 mmol, Memoria phosphate -22 10 mL, l 01:10: Route: Jes[place] 00 IVPB, PRN, Dosing Weight 61.818, kg, PRN Abnormal Lab Result, Start date: 11/14/17 20:10:00 CDT, Duration: 30 day, Stop date: 12/14/17 20:09:00 CDT, FOR ICU USE ONLY Calcium No Notes: Memoria Carbonate 11-15 (Same As: l 500 MG 01:10: Tums) Jesús Chewable 00 Calcium Tablet Carbonate 500 mg = 200 mg elemental calcium Dose = mg calcium carbonate ( mg elemental calcium) Magnesium No Notes: Memori a Oxide - (Same as: l 01:10: Mag-Ox [place] 00 400) Magnesium oxide [id number] g elemental magnesium Dose=____m g magnesium oxide (___mg elemental magnesium) Calcium No Notes: Memoria Gluconate 11-15 WASTE: F/P l 01:10: - Sink; E [place] - [facility] Trash Bin Magnesium No Notes: Memori a Sulfate 11-15 WASTE: F/P l 01:10: - Sink; E [place] - [facility] Trash Bin potassium No Notes: Memori a phosphate-s 11-15 (Same as: l odium 01:10: Phos-NaK) [place] phosphate 00 Each 1.5 250 mg-280 gm pkt has mg-160 mg 250mg oral powder phosphorou for s. Mix reconstitut w/2.5oz ion water and stir. Fentanyl No Notes: Memoria -22 Concentrat l 01:10: ion: 5 [place] 00 microgram / ml Saline No Notes: Memoria Flush 0.9% 11-15 (Same as: l 01:10: BD [place] 00 Posiflush) chlorhexidi No Notes: Hossein diana ne 11-15 (Same As: l gluconate 01:10: Peridex) Herm karina 1.2 MG/ML 00 Mouthwash Potassium No Notes: Memori a Chloride 11-15 (Same as: l 01:10: Potassium Chloride) potassium No Notes: Memori a phosphate -22 (Same as: l 01:10: K Phosphate. ) 1 mMol phoshate has 1.47 mEq potassium Infuse over 4 hours sodium No 30 mmol, Memoria phosphate -22 10 mL, l 01:10: Route: [place] 00 IVPB, PRN, Dosing Weight 61.818, kg, PRN Abnormal Lab Result, Start date: 11/14/17 20:10:00 CDT, Duration: 30 day, Stop date: 12/14/17 20:09:00 CDT, FOR ICU USE ONLY Calcium No Notes: Memoria Carbonate 11-15 (Same As: l 500 MG 01:10: Tums) Jesús Chewable 00 Calcium Tablet Carbonate 500 mg = 200 mg elemental calcium Dose = mg calcium carbonate ( mg elemental calcium) Magnesium No Notes: Memori a Oxide 11-15 (Same as: l 01:10: Mag-Ox [place] 00 400) Magnesium oxide [id number]=703k g elemental magnesium Dose=____m g magnesium oxide (___mg elemental magnesium) Calcium No Notes: Memoria Gluconate 11-15 WASTE: F/P l 01:10: - Sink; E [place] - [facility] Trash Bin Magnesium No Notes: Memori a Sulfate 11-15 WASTE: F/P l 01:10: - Sink; E [place] - [facility] Trash Bin potassium No Notes: Memori a phosphate-s 11-15 (Same as: l odium 01:10: Phos-NaK) [place] phosphate 00 Each 1.5 250 mg-280 gm pkt has mg-160 mg 250mg oral powder phosphorou for s. Mix reconstitut w/2.5oz ion water and stir. Fentanyl No Notes: Memoria 11-15 Concentrat l 01:10: ion: 5 [place] 00 microgram / ml Saline No Notes: Memoria Flush 0.9% 11-15 (Same as: l 01:10: BD [place] 00 Posiflush) chlorhexidi No Notes: Hossein diana ne 11-15 (Same As: l gluconate 01:10: Peridex) Herm karina 1.2 MG/ML 00 Mouthwash Potassium No Notes: Memori a Chloride 11-15 (Same as: l 01:10: Potassium [place] 00 Chloride) potassium No Notes: Memori a phosphate 11-15 (Same as: l 01:10: K [place] 00 Phosphate. ) 1 mMol phoshate has 1.47 mEq potassium Infuse over 4 hours sodium No 30 mmol, Memoria phosphate -22 10 mL, l 01:10: Route: [place] 00 IVPB, PRN, Dosing Weight 61.818, kg, PRN Abnormal Lab Result, Start date: 11/14/17 20:10:00 CDT, Duration: 30 day, Stop date: 12/14/17 20:09:00 CDT, FOR ICU USE ONLY Calcium No Notes: Memoria Carbonate - (Same As: l 500 MG 01:10: Tums) Jesús Chewable 00 Calcium Tablet Carbonate 500 mg = 200 mg elemental calcium Dose = mg calcium carbonate ( mg elemental calcium) Magnesium No Notes: Memori a Oxide - (Same as: l 01:10: Mag-Ox [place] 00 400) Magnesium oxide [id number] g elemental magnesium Dose=____m g magnesium oxide (___mg elemental magnesium) Calcium No Notes: Memoria Gluconate 11-15 WASTE: F/P l 01:10: - Sink; E [place] - [facility] Trash Bin Magnesium No Notes: Memori a Sulfate 11-15 WASTE: F/P l 01:10: - Sink; E - [facility] Trash Bin potassium No Notes: Memori a phosphate-s - (Same as: l odium 01:10: Phos-NaK) [place] phosphate 00 Each 1.5 250 mg-280 gm pkt has mg-160 mg 250mg oral powder phosphorou for s. Mix reconstitut w/2.5oz ion water and stir. Fentanyl No Notes: Memoria -22 Concentrat l 01:10: ion: 5 [place] 00 microgram / ml Saline No Notes: Memoria Flush 0.9% 11-15 (Same as: l 01:10: BD [place] 00 Posiflush) chlorhexidi No Notes: Hossein diana ne 11-15 (Same As: l gluconate 01:10: Peridex) Herm karina 1.2 MG/ML 00 Mouthwash Potassium No Notes: Memori a Chloride -22 (Same as: l 01:10: Potassium [place] 00 Chloride) potassium No Notes: Memori a phosphate -22 (Same as: l 01:10: K [place] 00 Phosphate. ) 1 mMol phoshate has 1.47 mEq potassium Infuse over 4 hours sodium No 30 mmol, Memoria phosphate 5-22 10 mL, l 01:10: Route: [place] 00 IVPB, PRN, Dosing Weight 61.818, kg, PRN Abnormal Lab Result, Start date: 11/14/17 20:10:00 CDT, Duration: 30 day, Stop date: 12/14/17 20:09:00 CDT, FOR ICU USE ONLY Calcium No Notes: Memoria Carbonate 5-22 (Same As: l 500 MG 01:10: Tums) [place] Chewable 00 Calcium Tablet Carbonate 500 mg = 200 mg elemental calcium Dose = mg calcium carbonate ( mg elemental calcium) Magnesium No Notes: Memori a Oxide -22 (Same as: l 01:10: Mag-Ox [place] 00 400) Magnesium oxide 729ye=760v g elemental magnesium Dose=____m g magnesium oxide (___mg elemental magnesium) Calcium No Notes: Memoria Gluconate - WASTE: F/P l 01:10: - Sink; E - [facility] Tr[facility] Bin Magnesium No Notes: Memori a Sulfate - WASTE: F/P l 01:10: - Sink; E [place] 00 - [facility] Trash Bin potassium No Notes: Memori a phosphate-s -22 (Same as: l odium 01:10: Phos-NaK) phosphate 00 Each 1.5 250 mg-280 gm pkt has mg-160 mg 250mg oral powder phosphorou for s. Mix reconstitut w/2.5oz ion water and stir. Fentanyl No Notes: Memoria 5-22 Concentrat l 01:10: ion: 5 microgram / ml Saline No Notes: Memoria Flush 0.9% -22 (Same as: l 01:10: BD [place] 00 Posiflush) sodium No Route: IV, Memor ia bicarbonate - Drug form: l (ANES) 01:02: INJ, ONCE, Lilian nn Stop date: 11/14/17 20:02:00 CDT calcium No Route: IV, Hossein diana chloride -22 Drug form: l (ANES) 01:02: INJ, ONCE, Lilian Stop date: 11/14/17 20:02:00 CDT rocuronium 2018-0 No Route: IV, M emoria (ANES) 5-22 Drug form: l 01:02: INJ, ONCE, [place] 00 Stop date: 11/14/17 20:02:00 CDT midazolam 2018-0 No Route: IV, Me moria (ANES) 5-22 Drug form: l 01:02: SOLN, ONCE, Stop date: 11/14/17 20:02:00 CDT fentaNYL 2018-0 No Route: IV, Mem oria (ANES) 5-22 Drug form: l 01:02: INJ, ONCE, [place] 00 Stop date: 11/14/17 20:02:00 CDT sodium 2018-0 No Route: IV, Memor ia bicarbonate 5-22 Drug form: l (ANES) 01:02: INJ, ONCE, Lilian Stop date: 11/14/17 20:02:00 CDT calcium 2018-0 No Route: IV, Hossein diana chloride 5-22 Drug form: l (ANES) 01:02: INJ, ONCE, Lilian Stop date: 11/14/17 20:02:00 CDT rocuronium 2018-0 No Route: IV, M emoria (ANES) 5-22 Drug form: l 01:02: INJ, ONCE, [place] 00 Stop date: 11/14/17 20:02:00 CDT midazolam 2018-0 No Route: IV, Me moria (ANES) 5-22 Drug form: l 01:02: SOLN, ONCE, Stop date: 11/14/17 20:02:00 CDT fentaNYL 2018-0 No Route: IV, Mem oria (ANES) 5-22 Drug form: l 01:02: INJ, ONCE, [place] 00 Stop date: 11/14/17 20:02:00 CDT sodium 2018-0 No Route: IV, Memor ia bicarbonate 5-22 Drug form: l (ANES) 01:02: INJ, ONCE, Lilian Stop date: 11/14/17 20:02:00 CDT calcium 2018-0 No Route: IV, Hossein diana chloride 5-22 Drug form: l (ANES) 01:02: INJ, ONCE, Lilian Stop date: 11/14/17 20:02:00 CDT rocuronium 2018-0 No Route: IV, M emoria (ANES) 5-22 Drug form: l 01:02: INJ, ONCE, [place] 00 Stop date: 11/14/17 20:02:00 CDT midazolam 2018-0 No Route: IV, Me moria (ANES) 5-22 Drug form: l 01:02: SOLN, ONCE, Stop date: 11/14/17 20:02:00 CDT fentaNYL 2018-0 No Route: IV, Mem oria (ANES) 5-22 Drug form: l 01:02: INJ, ONCE, Stop date: 11/14/17 20:02:00 CDT sodium 2018-0 No Route: IV, Memor ia bicarbonate 5-22 Drug form: l (ANES) 01:02: INJ, ONCE, Stop date: 11/14/17 20:02:00 CDT calcium 2018-0 No Route: IV, Hossein diana chloride 5-22 Drug form: l (ANES) 01:02: INJ, ONCE, Lilian Stop date: 11/14/17 20:02:00 CDT rocuronium 2018-0 No Route: IV, M emoria (ANES) 5-22 Drug form: l 01:02: INJ, ONCE, Stop date: 11/14/17 20:02:00 CDT midazolam 2018-0 No Route: IV, Me moria (ANES) 5-22 Drug form: l 01:02: SOLN, ONCE, Stop date: 11/14/17 20:02:00 CDT fentaNYL 2018-0 No Route: IV, Mem oria (ANES) 5-22 Drug form: l 01:02: INJ, ONCE, [place] 00 Stop date: 11/14/17 20:02:00 CDT sodium 2018-0 No Route: IV, Memor ia bicarbonate 5-22 Drug form: l (ANES) 01:02: INJ, ONCE, Lilian Stop date: 11/14/17 20:02:00 CDT calcium 2018-0 No Route: IV, Hossein diana chloride 5-22 Drug form: l (ANES) 01:02: INJ, ONCE, Lilian Stop date: 11/14/17 20:02:00 CDT rocuronium 2017-0 No Route: IV, M emoria (ANES) 11-15 Drug form: l 01:02: INJ, ONCE, [place] 00 Stop date: 11/14/17 20:02:00 CDT midazolam 2017-0 No Route: IV, Me moria (ANES) 11-15 Drug form: l 01:02: SOLN, ONCE, Stop date: 11/14/17 20:02:00 CDT fentaNYL 0 No Route: IV, Mem oria (ANES) 11-15 Drug form: l 01:02: INJ, ONCE, Stop date: 11/14/17 20:02:00 CDT sodium 0 No Route: IV, Memor ia bicarbonate 11-15 Drug form: l (ANES) 01:02: INJ, ONCE, Lilian Stop date: 11/14/17 20:02:00 CDT calcium 0 No Route: IV, Hossein diana chloride 11-15 Drug form: l (ANES) 01:02: INJ, ONCE, Lilian Stop date: 11/14/17 20:02:00 CDT rocuronium 0 No Route: IV, M emoria (ANES) 11-15 Drug form: l 01:02: INJ, ONCE, Stop date: 11/14/17 20:02:00 CDT midazolam 2017-0 No Route: IV, Me moria (ANES) 11-15 Drug form: l 01:02: SOLN ONCE, Stop date: 11/14/17 20:02:00 CDT fentaNYL 2017-0 No Route: IV, Mem oria (ANES) 11-15 Drug form: l 01:02: INJ, ONCE, Stop date: 11/14/17 20:02:00 CDT protamine 2017-0 No Route: IV, Me moria (ANES) 10 11-14 Drug form: l mg 23:55: INJ, Start date: 11/14/17 18:55:00 CDT, Stop date: 11/14/17 19:55:00 CDT protamine 0 No Route: IV, Me moria (ANES) 10 5-21 Drug form: l mg 23:55: INJ, Start date: 11/14/17 18:55:00 CDT, Stop date: 11/14/17 19:55:00 CDT protamine 0 No Route: IV, Me moria (ANES) 10 5- Drug form: l mg 23:55: INJ, Start date: 11/14/17 18:55:00 CDT, Stop date: 11/14/17 19:55:00 CDT protamine No Route: IV, Me moria (ANES) 10 - Drug form: l mg 23:55: INJ, Start date: 11/14/17 18:55:00 CDT, Stop date: 11/14/17 19:55:00 CDT protamine No Route: IV, Me moria (ANES) 10 5- Drug form: l mg 23:55: INJ, Start date: 11/14/17 18:55:00 CDT, Stop date: 11/14/17 19:55:00 CDT protamine No Route: IV, Me moria (ANES) 10 5- Drug form: l mg 23:55: INJ, Start date: 11/14/17 18:55:00 CDT, Stop date: 11/14/17 19:55:00 CDT heparin No Route: IV, Hossein diana (ANES) 5-21 Drug form: l 23:08: INJ, ONCE, Stop date: 11/14/17 18:08:00 CDT heparin 2017-0 No Route: IV, Hossein diana (ANES) 5-21 Drug form: l 23:08: INJ, ONCE, Stop date: 11/14/17 18:08:00 CDT heparin 2017-0 No Route: IV, Hossein diana (ANES) 5-21 Drug form: l 23:08: INJ, ONCE, Stop date: 11/14/17 18:08:00 CDT heparin 2018-0 No Route: IV, Hossein diana (ANES) 5-21 Drug form: l 23:08: INJ, ONCE, Stop date: 11/14/17 18:08:00 CDT heparin 2017-0 No Route: IV, Hossein diana (ANES) 5-21 Drug form: l 23:08: INJ, ONCE, [place] Stop date: 11/14/17 18:08:00 CDT heparin 2018-0 No Route: IV, Hossein diana (ANES) 5-21 Drug form: l 23:08: INJ, ONCE, [place] Stop date: 11/14/17 18:08:00 CDT cefuroxime 2017-0 No Route: IV, M emoria (ANES) + 5-21 Drug form: l sterile 22:33: INJ, ONCE, Herm karina water Stop date: (ANES) 11/14/17 mL 17:33:00 CDT cefuroxime 2018-0 No Route: IV, M emoria (ANES) + 5-21 Drug form: l sterile 22:33: INJ, ONCE, Herm karina water Stop date: (ANES) 11/14/17 mL 17:33:00 CDT cefuroxime 2017-0 No Route: IV, M emoria (ANES) + 5-21 Drug form: l sterile 22:33: INJ, ONCE, Herm karina water Stop date: (ANES) 11/14/17 mL 17:33:00 CDT cefuroxime 2018-0 No Route: IV, M emoria (ANES) + 5-21 Drug form: l sterile 22:33: INJ, ONCE, Herm karina water Stop date: (ANES) 11/14/17 mL 17:33:00 CDT cefuroxime 2018-0 No Route: IV, M emoria (ANES) + 5-21 Drug form: l sterile 22:33: INJ, ONCE, Herm karina water Stop date: (ANES) 11/14/17 mL 17:33:00 CDT cefuroxime 2018-0 No Route: IV, M emoria (ANES) + 5-21 Drug form: l sterile 22:33: INJ, ONCE, Herm karina water Stop date: (ANES) 11/14/17 mL 17:33:00 CDT DOPamine 2018-0 No Route: IV, Mem oria (ANES) 3.2 5-21 Drug form: l mg 22:14: INJ, Start date: 11/14/17 17:14:00 CDT, Stop date: 11/14/17 18:14:00 CDT DOPamine 0 No Route: IV, Mem oria (ANES) 3.2 5 Drug form: l mg 22:14: INJ, Start date: 11/14/17 17:14:00 CDT, Stop date: 11/14/17 18:14:00 CDT DOPamine 0 No Route: IV, Mem oria (ANES) 3.2 11-14 Drug form: l mg 22:14: INJ, date: 11/14/17 17:14:00 CDT, Stop date: 11/14/17 18:14:00 CDT DOPamine 0 No Route: IV, Mem oria (ANES) 3.2 11-14 Drug form: l mg 22:14: INJ, date: 11/14/17 17:14:00 CDT, Stop date: 11/14/17 18:14:00 CDT DOPamine 0 No Route: IV, Mem oria (ANES) 3.2 11-14 Drug form: l mg 22:14: INJ, date: 11/14/17 17:14:00 CDT, Stop date: 11/14/17 18:14:00 CDT DOPamine 0 No Route: IV, Mem oria (ANES) 3.2 11-14 Drug form: l mg 22:14: INJ, date: 11/14/17 17:14:00 CDT, Stop date: 11/14/17 18:14:00 CDT Enoxaparin 2018-0 No 40 mg, Memor ia 11-14 Route: l 22:00: SUB-Q, Drug form: INJ, [id number], Dosing Weight 61.818, kg, Start date: 11/14/17 17:00:00 CDT, Stop date: 12/13/17 17:00:00 CDT Dipyridamol 2017-0 No 75 mg, Hossein diana e 11-14 Route: PO, l 22:00: Drug form: [place] 00 TAB, BID, Dosing Weight 61.818, kg, [...] CDT Enoxaparin No 40 mg, Memor ia 21 Route: l 22:00: SUB-Q, Drug form: INJ, [id number], Dosing Weight 61.818, kg, Start date: 11/14/17 17:00:00 CDT, Stop date: 12/13/17 17:00:00 CDT Dipyridamol No 75 mg, Hossein diana e 21 Route: PO, l 22:00: Drug form: [place] TAB, BID, Dosing Weight 61.818, kg, Start [...] CDT Docusate No Notes: Memoria Sodium 100 5-21 (Same as: l MG Oral 22:00: Colace) [place] Capsule (Do Not Crush) Fish Oil No Route: PO, Mem oria 5-21 BID, l 22:00: Dosing Weight 61.818, kg, Start date: 11/14/17 17:00:00 CDT, Duration: 30 day, Stop date: 12/14/17 9:00:00 CDT Enoxaparin No 40 mg, Memor ia 5-21 Route: l 22:00: SUB-Q, Drug form: INJ, [id number], Dosing Weight 61.818, kg, Start date: 11/14/17 [...] CDT Docusate No Notes: Memoria Sodium 100 5-21 (Same as: l MG Oral 22:00: Colace) Jesús Capsule (Do Not Crush) Fish Oil No Route: PO, Mem oria 5-21 BID, l 22:00: Dosing Weight 61.818, kg, Start date: 11/14/17 17:00:00 CDT, Duration: 30 day, Stop date: 12/14/17 9:00:00 CDT Enoxaparin 2017- No 40 mg, Memor ia 5-21 Route: l 22:00: SUB-Q, Drug form: INJ, [id number], Dosing Weight 61.818, kg, Start date: 11/14/17 17:00:00 CDT, Stop date: 12/13/17 17:00:00 CDT Dipyridamol No 75 mg, Hossein diana e 11-14 Route: PO, l 22:00: Drug form: Jes[place] 00 TAB, BID, Dosing Weight 61.818, kg, Start date: 11/14/17 17:00:00 CDT, Duration: 30 day, Stop date: 12/14/17 9:00:00 CDT cilostazol No Notes: Memor ia 5-21 Non-Formul l 22:00: david Drug. Jesús (Same As: Pletal) Vitamin C No Route: [...] CDT Enoxaparin No 40 mg, Memor ia -21 Route: l 22:00: SUB-Q, Drug form: INJ, [id number], Dosing Weight 61.818, kg, Start date: 11/14/17 17:00:00 CDT, Stop date: 12/13/17 17:00:00 CDT Dipyridamol 2017-0 No 75 mg, Hossein diana e 5-21 Route: PO, l 22:00: Drug form: [place] 00 TAB, BID, Dosing Weight 61.818, kg, Start date: 11/14/17 17:00:00 CDT, Duration: 30 day, Stop date: 12/14/17 9:00:00 CDT cilostazol 2017-0 No Notes: Memor ia 5-21 Non-Formul l 22:00: david Drug. [place] (Same As: Pletal) Vitamin C No Route: PO, Me moria 5-21 BID, l 22:00: Dosing Weight 61.818, kg, Start date: 11/14/17 17:00:00 CDT, Duration: 30 day, Stop date: 12/14/17 9:00:00 CDT Docusate 2017-0 No Notes: Memoria Sodium 100 5-21 (Same as: l MG Oral 22:00: Colace) [place] Capsule (Do Not Crush) Fish Oil No Route: PO, Mem oria 5-21 BID, l 22:00: Dosing Weight 61.818, kg, Start date: 11/14/17 17:00:00 CDT, Duration: 30 day, Stop date: 12/14/17 9:00:00 CDT Enoxaparin 2017-0 No 40 mg, Memor ia 5-21 Route: l 22:00: SUB-Q, Drug form: INJ, [id number], Dosing Weight 61.818, kg, Start date: 11/14/17 17:00:00 CDT, Stop date: 12/13/17 17:00:00 CDT Dipyridamol 2018-0 No 75 mg, Hossein diana e 5-21 Route: PO, l 22:00: Drug form: [place] 00 TAB, BID, Dosing Weight 61.818, kg, Start date: 11/14/17 17:00:00 CDT, Duration: 30 day, Stop date: 12/14/17 9:00:00 CDT cilostazol 2017-0 No Notes: Memor ia 5-21 Non-Formul l 22:00: david Drug. [place] 00 (Same As: Pletal) Vitamin C No Route: PO, Me moria 5-21 BID, l 22:00: Dosing Jesús 00 Weight 61.818, kg, Start date: 11/14/17 17:00:00 CDT, Duration: 30 day, Stop date: 12/14/17 9:00:00 CDT Docusate No Notes: Memoria Sodium 100 5-21 (Same [...] Drug form: l 32 21:53: INJ, Start [place] microgram date: 11/14/17 16:53:00 CDT, Stop date: 11/14/17 17:53:00 CDT norepinephr No Route: IV, Memoria ine (ANES) 5-21 Drug form: l 32 21:53: INJ, Start Jesús microgram date: 11/14/17 16:53:00 CDT, Stop date: 11/14/17 17:53:00 CDT norepinephr 2017-0 No Route: IV, Memoria ine (ANES) 5-21 Drug form: l 32 21:53: INJ, Start [place] microgram 00 date: 11/14/17 16:53:00 CDT, Stop date: 11/14/17 17:53:00 CDT midazolam 2017-0 No Route: IV, Me moria (ANES) 5- Drug form: l 21:52: SOLN, [place] 00 ONCE, Stop date: 11/14/17 16:52:00 CDT lidocaine 2017-0 No Route: IV, Me moria (ANES) 5-21 Drug form: l 21:52: INJ, ONCE, Stop date: 11/14/17 16:52:00 CDT fentaNYL 2017-0 No Route: IV, Mem oria (ANES) 5- Drug form: l 21:52: INJ, ONCE, Stop date: 11/14/17 16:52:00 CDT rocuronium 2017-0 No Route: IV, M emoria (ANES) 5- Drug form: l 21:52: INJ, ONCE, Stop date: 11/14/17 16:52:00 CDT Amidate 2017- No Route: IV, Hossein diana (ANES) 5- Drug form: l 21:52: INJ, ONCE, Stop date: 11/14/17 16:52:00 CDT midazolam 2017-0 No Route: IV, Me moria (ANES) 5-21 Drug form: l 21:52: SOLN, [place] 00 ONCE, Stop date: 11/14/17 16:52:00 CDT lidocaine 2017-0 No Route: IV, Me moria (ANES) 5-21 Drug form: l 21:52: INJ, ONCE, Stop date: 11/14/17 16:52:00 CDT fentaNYL 2017-0 No Route: IV, Mem oria (ANES) 5-21 Drug form: l 21:52: INJ, ONCE, Stop date: 11/14/17 16:52:00 CDT rocuronium 2018-0 No Route: IV, M emoria (ANES) 5-21 Drug form: l 21:52: INJ, ONCE, Stop date: 11/14/17 16:52:00 CDT Amidate 2017-0 No Route: IV, Hossein diana (ANES) 5- Drug form: l 21:52: INJ, ONCE, Stop date: 11/14/17 16:52:00 CDT midazolam 2017-0 No Route: IV, Me moria (ANES) 5- Drug form: l 21:52: SOLN, ONCE, Stop date: 11/14/17 16:52:00 CDT lidocaine 2017-0 No Route: IV, Me moria (ANES) 5-21 Drug form: l 21:52: INJ, ONCE, Stop date: 11/14/17 16:52:00 CDT fentaNYL 2017-0 No Route: IV, Mem oria (ANES) 5- Drug form: l 21:52: INJ, ONCE, Stop date: 11/14/17 16:52:00 CDT rocuronium 2017-0 No Route: IV, M emoria (ANES) 5-21 Drug form: l 21:52: INJ, ONCE, Stop date: 11/14/17 16:52:00 CDT Amidate 2017-0 No Route: IV, Hossein diana (ANES) 5-21 Drug form: l 21:52: INJ, ONCE, Stop date: 11/14/17 16:52:00 CDT midazolam 2017-0 No Route: IV, Me moria (ANES) 5-21 Drug form: l 21:52: SOLN, ONCE, Stop date: 11/14/17 16:52:00 CDT lidocaine 2017-0 No Route: IV, Me moria (ANES) 5-21 Drug form: l 21:52: INJ, ONCE, Stop date: 11/14/17 16:52:00 CDT fentaNYL 2018-0 No Route: IV, Mem oria (ANES) 5-21 Drug form: l 21:52: INJ, ONCE, Stop date: 11/14/17 16:52:00 CDT rocuronium 2018-0 No Route: IV, M emoria (ANES) 5-21 Drug form: l 21:52: INJ, ONCE, Stop date: 11/14/17 16:52:00 CDT Amidate 2017-0 No Route: IV, Hossein diana (ANES) 5- Drug form: l 21:52: INJ, ONCE, Stop date: 11/14/17 16:52:00 CDT midazolam 2017-0 No Route: IV, Me moria (ANES) 5- Drug form: l 21:52: SOLN, ONCE, Stop date: 11/14/17 16:52:00 CDT lidocaine 2017-0 No Route: IV, Me moria (ANES) 5-21 Drug form: l 21:52: INJ, ONCE, Stop date: 11/14/17 16:52:00 CDT fentaNYL 2017-0 No Route: IV, Mem oria (ANES) 5- Drug form: l 21:52: INJ, ONCE, Stop date: 11/14/17 16:52:00 CDT rocuronium 2017-0 No Route: IV, M emoria (ANES) 5-21 Drug form: l 21:52: INJ, ONCE, Stop date: 11/14/17 16:52:00 CDT Amidate 2017-0 No Route: IV, Hossein diana (ANES) 5-21 Drug form: l 21:52: INJ, ONCE, Stop date: 11/14/17 16:52:00 CDT midazolam 2017-0 No Route: IV, Me moria (ANES) 5-21 Drug form: l 21:52: SOLN, ONCE, Stop date: 11/14/17 16:52:00 CDT lidocaine 2017-0 No Route: IV, Me moria (ANES) 5-21 Drug form: l 21:52: INJ, ONCE, Stop date: 11/14/17 16:52:00 CDT fentaNYL 2018-0 No Route: IV, Mem oria (ANES) 5-21 Drug form: l 21:52: INJ, ONCE, Stop date: 11/14/17 16:52:00 CDT rocuronium 2018-0 No Route: IV, M emoria (ANES) 5-21 Drug form: l 21:52: INJ, ONCE, Jesús 00 Stop date: 11/14/17 16:52:00 CDT Amidate [...] diana 5-21 (Same as: l 21:49: Zofran) [place] 00 MEDICATION WASTE Product Size: 4 mg Product Wasted: __0_ mg Acetaminoph No Notes: Do M emoria en 5-21 not exceed l 21:49: 4 gm/day. [place] (Same as: Tylenol) Morphine No Notes: Memoria 5-21 (Same l 21:49: as:MORPhin Jesús 00 e Sulfate) Acetaminoph No Notes: Hossein diana en 325 MG / 5-21 (Same as: l Hydrocodone 21:49: [place]if[place] Lilian nn Bitartrate 00 325/5) Do 5 MG Oral not exceed Tablet 4gm/day of acetaminop hen. acetaminoph No Notes: Do M emoria en-codeine 5-21 not exceed l #3 21:49: 4gm/day of Jesús acetaminop hen. (Same as: Tylenol with Codeine # 3) Saline No Notes: Memoria Flush 0.9% 5-21 (Same as: l 21:49: BD [place] 00 Posiflush) POLYETHYLEN No Notes: Hossein diana E GLYCOL 5-21 Dissolve l [id number] 21:49: in 8 oz of [place] 00 water or juice. (Same as: Miralax) Dulcolax No Notes: Memoria Laxative 5-21 (Same As: l 21:49: Dulcolax, [place] 00 Correctol) (Do Not Crush) "Do Not Crush" Ondansetron No Notes: Hossein diana 5-21 (Same as: l 21:49: Zofran) Jesús MEDICATION WASTE Product Size: 4 mg Product Wasted: __0_ mg Acetaminoph No Notes: Do M emoria en 5-21 not exceed l 21:49: 4 gm/day. [place] (Same as: Tylenol) Morphine No Notes: Memoria 5-21 (Same l 21:49: as:MORPhin [place] 00 e Sulfate) Acetaminoph No Notes: Hossein diana en 325 MG / 5-21 (Same as: l Hydrocodone 21:49: [place] Lilian nn Bitartrate 00 325/5) Do 5 MG Oral not exceed Tablet 4gm/day of acetaminop hen. acetaminoph No Notes: Do M emoria en-codeine 5-21 not exceed l #3 21:49: 4gm/day of [place] 00 acetaminop hen. (Same as: Tylenol with Codeine # 3) Saline No Notes: Memoria Flush 0.9% 5-21 (Same as: l 21:49: BD [place] 00 Posiflush) POLYETHYLEN No Notes: Hossein diana E GLYCOL 5-21 Dissolve l [id number] 21:49: in 8 oz of Jesús 00 water or juice. (Same as: Miralax) Dulcolax No Notes: Memoria Laxative 5-21 (Same As: l 21:49: Dulcolax, [place] 00 Correctol) (Do Not Crush) "Do Not Crush" Ondansetron No Notes: Hossein diana 5-21 (Same as: l 21:49: Zofran) [place] MEDICATION WASTE Product Size: 4 mg Product Wasted: __0_ mg Acetaminoph No Notes: Do M emoria en 5-21 not exceed l 21:49: 4 gm/day. Jesús 00 (Same as: Tylenol) Morphine No Notes: Memoria 5-21 (Same l 21:49: as:MORPhin [place] 00 e Sulfate) Acetaminoph No Notes: Hossein diana en 325 MG / 5-21 (Same as: l Hydrocodone 21:49: Mifflin Lilian nn Bitartrate 00 325/5) Do 5 MG Oral not exceed Tablet 4gm/day of acetaminop hen. acetaminoph No Notes: Do M emoria en-codeine 5-21 not exceed l #3 21:49: 4gm/day of Jesús acetaminop hen. (Same as: Tylenol with Codeine # 3) Saline No Notes: Memoria Flush 0.9% 5-21 (Same as: l 21:49: BD [place] 00 Posiflush) POLYETHYLEN No Notes: Hossein diana E GLYCOL 5-21 Dissolve l 3350 21:49: in 8 oz of Jes[place]s 00 water or juice. (Same as: Miralax) Dulcolax No Notes: Memoria Laxative 5-21 (Same As: l 21:49: Dulcolax, [place] 00 Correctol) (Do Not Crush) "Do Not Crush" Ondansetron No Notes: Hossein diana 5-21 (Same as: l 21:49: Zofran) [place] MEDICATION WASTE Product Size: 4 mg Product Wasted: __0_ mg Acetaminoph No Notes: Do M emoria en 5-21 not exceed l 21:49: 4 gm/day. [place] 00 (Same as: Tylenol) Morphine No Notes: Memoria 5-21 (Same l 21:49: as:MORPhin [place] 00 e Sulfate) Acetaminoph No Notes: Hossein diana en 325 MG / 5-21 (Same as: l Hydrocodone 21:49: Mifflin Lilian nn Bitartrate 00 325/5) Do 5 MG Oral not exceed Tablet 4gm/day of acetaminop hen. acetaminoph No Notes: Do M emoria en-codeine 5-21 not exceed l #3 21:49: 4gm/day of Jesús 00 acetaminop hen. (Same as: Tylenol with Codeine # 3) Saline No Notes: Memoria Flush 0.9% 5-21 (Same as: l 21:49: BD [place] Posiflush) POLYETHYLEN No Notes: Hossein diana E GLYCOL 5-21 Dissolve l 3350 21:49: in 8 oz of [place] 00 water or juice. (Same as: Miralax) Dulcolax No Notes: Memoria Laxative 5-21 (Same As: l 21:49: Dulcolax, [place] 00 Correctol) (Do Not Crush) "Do Not Crush" Ondansetron No Notes: Hossein diana 5-21 (Same as: l 21:49: Zofran) [place] 00 MEDICATION WASTE Product Size: 4 mg Product Wasted: __0_ mg Acetaminoph No Notes: Do M emoria en 5-21 not exceed l 21:49: 4 gm/day. [place] 00 (Same as: Tylenol) Morphine No Notes: Memoria 5-21 (Same l 21:49: as:MORPhin [place] 00 e Sulfate) Acetaminoph No Notes: Hosesin diana en 325 MG / 5-21 (Same as: l Hydrocodone 21:49: Mifflin Lilian nn Bitartrate 00 325/5) Do 5 MG Oral not exceed Tablet 4gm/day of acetaminop hen. acetaminoph No Notes: Do M emoria en-codeine 5-21 not exceed l #3 21:49: 4gm/day of [place] 00 acetaminop hen. (Same as: Tylenol with Codeine # 3) Saline No Notes: Memoria Flush 0.9% 5-21 (Same as: l 21:49: BD [place] 00 Posiflush) POLYETHYLEN No Notes: Hossein diana E GLYCOL 5-21 Dissolve l 3350 21:49: in 8 oz of [place] 00 water or juice. (Same as: Miralax) Dulcolax No Notes: Memoria Laxative 5-21 (Same As: l 21:49: Dulcolax, [place] 00 Correctol) (Do Not Crush) "Do Not Crush" Ondansetron No Notes: Hossein diana 5-21 (Same as: l 21:49: Zofran) [place] 00 MEDICATION WASTE Product Size: 4 mg Product Wasted: __0_ mg Acetaminoph No Notes: Do M emoria en 5-21 not exceed l 21:49: 4 gm/day. [place] (Same as: Tylenol) Morphine No Notes: Memoria 5-21 (Same l 21:49: as:MORPhin e Sulfate) Acetaminoph No Notes: Hossein diana en 325 MG / 5-21 (Same as: l Hydrocodone 21:49: Mifflin Lilian nn Bitartrate 00 325/5) Do 5 [...] Stop date: 11/14/17 17:15:00 CDT Isolyte S No Route: IV, Me moria PH 7.4 5-21 Total l (ANES) 1000 21:15: Volume: Her mckee mL 00 1,000, Start date: 11/14/17 16:15:00 CDT, Stop date: 11/14/17 17:15:00 CDT Isolyte S No Route: IV, Me moria PH 7.4 5-21 Total l (ANES) 1000 21:15: Volume: Her mckee mL 00 1,000, Start date: 11/14/17 16:15:00 CDT, Stop date: 11/14/17 17:15:00 CDT Isolyte S 0 No Route: IV, Me moria PH 7.4 5-21 Total l (ANES) 1000 21:15: Volume: Her mckee mL 00 1,000, Start date: 11/14/17 16:15:00 CDT, Stop date: 11/14/17 17:15:00 CDT Isolyte S No Route: IV, Me moria PH 7.4 5-21 Total l (ANES) 1000 21:15: Volume: Her mckee mL 00 1,000, Start date: 11/14/17 16:15:00 CDT, Stop date: 11/14/17 17:15:00 CDT Isolyte S 2017- No Route: IV, Me moria PH 7.4 5-21 Total l (ANES) 1000 21:15: Volume: Her mckee mL 00 1,000, Start date: 11/14/17 16:15:00 CDT, Stop date: 11/14/17 17:15:00 CDT DOPamine No Route: IV, Mem oria (ANES) 3.2 5-21 Drug form: l mg 21:08: INJ, date: 11/14/17 16:08:00 CDT, Stop date: 11/14/17 17:08:00 CDT DOPamine No Route: IV, Mem oria (ANES) 3.2 5-21 Drug form: l mg 21:08: INJ, date: 11/14/17 16:08:00 CDT, Stop date: 11/14/17 17:08:00 CDT DOPamine No Route: IV, Mem oria (ANES) 3.2 5-21 Drug form: l mg 21:08: INJ, date: 11/14/17 16:08:00 CDT, Stop date: 11/14/17 17:08:00 CDT DOPamine No Route: IV, Mem oria (ANES) 3.2 5-21 Drug form: l mg 21:08: INJ, date: 11/14/17 16:08:00 CDT, Stop date: 11/14/17 17:08:00 CDT DOPamine 0 No Route: IV, Mem oria (ANES) 3.2 5-21 Drug form: l mg 21:08: INJ, Start [place] 00 date: 11/14/17 16:08:00 CDT, Stop date: 11/14/17 17:08:00 CDT DOPamine 0 No Route: IV, Mem oria (ANES) 3.2 5-21 Drug form: l mg 21:08: INJ, Start [place] 00 date: 11/14/17 16:08:00 CDT, Stop date: 11/14/17 17:08:00 CDT Dopamine 0 No Notes: Memoria 5-21 (Same as: l 20:57: Intropin) [place] 00 Administer by either central venous catheter or peripheral ly-inserte d central catheter (PICC) line. Final conc = 3.2 mg/ml. Premix solution. Dopamine No Notes: Memoria 5-21 (Same as: l 20:57: Intropin) [place] Administer by either central venous catheter or peripheral ly-inserte d central catheter (PICC) line. Final conc = 3.2 mg/ml. Premix solution. Dopamine No Notes: Memoria 5-21 (Same as: l 20:57: Intropin) [place] Administer by either central venous catheter or peripheral ly-inserte d central catheter (PICC) line. Final conc = 3.2 mg/ml. Premix solution. Dopamine No Notes: Memoria 5-21 (Same as: l 20:57: Intropin) [place] Administer by either central venous catheter or peripheral ly-inserte d central catheter (PICC) line. Final conc = 3.2 mg/ml. Premix solution. Dopamine 0 No Notes: Memoria 5-21 (Same as: l 20:57: Intropin) [place] 00 Administer by either central venous catheter or peripheral ly-inserte d central catheter (PICC) line. Final conc = 3.2 mg/ml. Premix solution. Dopamine 0 No Notes: Memoria 5-21 (Same as: l 20:57: Intropin) [place] 00 Administer by either central venous catheter or peripheral ly-inserte d central catheter (PICC) line. Final conc = 3.2 mg/ml. Premix solution. Sodium 2018-0 No 250 mL, Memoria Chloride 5-21 Route: l 0.9% IV 19:58: IVPB, [place] 00 Start date: 11/14/17 14:58:00 CDT, Duration: 30 day, Stop date: 12/14/17 14:57:00 CDT, PRN Line Flush BD Normal 2018-0 No Notes: Memori a Saline 5-21 (Same as: l Flush 19:58: BD [place] Posiflush) Sodium 2018-0 No 250 mL, Memoria Chloride 5-21 Route: l 0.9% IV 19:58: IVPB, [place] 00 Start date: 11/14/17 14:58:00 CDT, Duration: 30 day, Stop date: 12/14/17 14:57:00 CDT, PRN Line Flush BD Normal 2018-0 No Notes: Memori a Saline 5-21 (Same as: l Flush 19:58: BD [place] Posiflush) Sodium 2018-0 No 250 mL, Memoria Chloride 5-21 Route: l 0.9% IV 19:58: IVPB, [place] 00 Start date: 11/14/17 14:58:00 CDT, Duration: 30 day, Stop date: 12/14/17 14:57:00 CDT, PRN Line Flush BD Normal 2018-0 No Notes: Memori a Saline 5-21 (Same as: l Flush 19:58: BD [place] Posiflush) Sodium 2018-0 No 250 mL, Memoria Chloride 5-21 Route: l 0.9% IV 19:58: IVPB, [place] 00 Start date: 11/14/17 14:58:00 CDT, Duration: 30 day, Stop date: 12/14/17 14:57:00 CDT, PRN Line Flush BD Normal 2018-0 No Notes: Memori a Saline 5-21 (Same as: l Flush 19:58: BD [place] Posiflush) Sodium 2018-0 No 250 mL, Memoria Chloride 5-21 Route: l 0.9% IV 19:58: IVPB, [place] 00 Start date: 11/14/17 14:58:00 CDT, Duration: 30 day, Stop date: 12/14/17 14:57:00 CDT, PRN Line Flush BD Normal No Notes: Memori a Saline 5-21 (Same as: l Flush 19:58: BD [place] Posiflush) Sodium No 250 mL, Memoria Chloride 5-21 Route: l 0.9% IV 19:58: IVPB, [place] 00 Start date: 11/14/17 14:58:00 CDT, Duration: 30 day, Stop date: 12/14/17 14:57:00 CDT, PRN Line Flush BD Normal 0 No Notes: Memori a Saline 5-21 (Same as: l Flush 19:58: BD [place] Posiflush) Sodium No 750 mL, Memoria Chloride [...] 5-21 not exceed l 18:02: 4 gm/day. Jes[place] 00 (Same as: Tylenol) acetaminoph No Notes: Do M emoria en-codeine 5-21 not exceed l #3 18:02: 4gm/day of Jesús 00 acetaminop hen. (Same [...] diana 5-21 (Same as: l 18:02: Zofran) [place] 00 MEDICATION WASTE Product Size: 4 mg Product Wasted: _0__ mg Acetaminoph No Notes: Do M emoria en 5-21 not exceed l 18:02: 4 gm/day. Jes[place]s (Same as: Tylenol) acetaminoph No Notes: Do M emoria en-codeine 5-21 not exceed l #3 18:02: 4gm/day of [place] acetaminop hen. (Same as: Tylenol with Codeine # 3) Morphine No Notes: Memoria 5-21 (Same l 18:02: as:MORPhin [place] 00 e Sulfate) Sodium No 750 mL, Memoria Chloride 5-21 Rate: 75 l 0.9% IV 750 18:02: ml/hr, Herm karina mL 00 Infuse over: 10 hr, Route: IV, Dosing Weight 61.818 kg, Total Volume: 750, Start date: 11/14/17 13:02:00 CDT, Duration: 10 hr, Stop date: 11/14/17 23:01:00 CDT, 1.63, m2 Ondansetron No Notes: Hossein diana 5-21 (Same as: l 18:02: Zofran) [place] 00 MEDICATION WASTE Product Size: 4 mg Product Wasted: _0__ mg Acetaminoph No Notes: Do M emoria en 5-21 not exceed l 18:02: 4 gm/day. [place] 00 (Same as: Tylenol) acetaminoph No Notes: Do M emoria en-codeine 5-21 not exceed l #3 18:02: 4gm/day of Jesús acetaminop hen. (Same as: Tylenol with Codeine # 3) Morphine No Notes: Memoria 5-21 (Same l 18:02: as:MORPhin [place] 00 e Sulfate) Sodium No 750 mL, Memoria [...] 5-21 not exceed l 18:02: 4 gm/day. [place] 00 (Same as: Tylenol) acetaminoph No Notes: Do M emoria en-codeine 5-21 not exceed l #3 18:02: 4gm/day of acetaminop hen. (Same as: Tylenol with Codeine # 3) Morphine No Notes: Memoria 5-21 (Same l 18:02: as:MORPhin e Sulfate) Sodium 2018 No 750 mL, Memoria Chloride 5-21 Rate: [...] 5-21 not exceed l 18:02: 4 gm/day. [place] 00 (Same as: Tylenol) acetaminoph No Notes: Do M emoria en-codeine 5-21 not exceed l #3 18:02: 4gm/day of [place] acetaminop hen. (Same as: Tylenol with Codeine # 3) Morphine No Notes: Memoria 5-21 (Same l 18:02: as:MORPhin [place] 00 e Sulfate) Sodium No 750 mL, Memoria [...] 5-21 not exceed l 18:02: 4 gm/day. Jesús (Same as: Tylenol) acetaminoph No Notes: Do M emoria en-codeine 5-21 not exceed l #3 18:02: 4gm/day of [place] acetaminop hen. (Same as: Tylenol with Codeine # 3) Morphine No Notes: Memoria 5-21 (Same l 18:02: as:MORPhin [place] 00 e Sulfate) Sodium No 1,000 mL, Memori a Chloride 5-21 Rate: 100 l 0.9% IV 15:20: ml/hr, [place] 1,000 mL 00 Infuse over: 10 hr, Route: IV, Dosing Weight 61.818 kg, Total Volume: 1,000, Start date: 11/14/17 10:20:00 CDT, Duration: 30 day, Stop date: 12/14/17 10:19:00 CDT, 1.63, m2 Sodium 2018-0 No 1,000 mL, Memori a Chloride 5-21 Rate: 100 l 0.9% IV 15:20: ml/hr, [place] 1,000 mL 00 Infuse over: 10 hr, Route: IV, Dosing Weight 61.818 kg, Total Volume: 1,000, Start date: 11/14/17 10:20:00 CDT, Duration: 30 day, Stop date: 12/14/17 10:19:00 CDT, 1.63, m2 Sodium 2018-0 No 1,000 mL, Memori a Chloride 5-21 Rate: 100 l 0.9% IV 15:20: ml/hr, [place] 1,000 mL 00 Infuse over: 10 hr, Route: IV, Dosing Weight 61.818 kg, Total Volume: 1,000, Start date: 11/14/17 10:20:00 CDT, Duration: 30 day, Stop date: 12/14/17 10:19:00 CDT, 1.63, m2 Sodium 2018-0 No 1,000 mL, Memori a Chloride 5-21 Rate: 100 l 0.9% IV 15:20: ml/hr, [place] 1,000 mL 00 Infuse over: 10 hr, Route: IV, Dosing Weight 61.818 kg, Total Volume: 1,000, Start date: 11/14/17 10:20:00 CDT, Duration: 30 day, Stop date: 12/14/17 10:19:00 CDT, 1.63, m2 Sodium 2018-0 No 1,000 mL, Memori a Chloride 5-21 Rate: 100 l 0.9% IV 15:20: ml/hr, [place] 1,000 mL 00 Infuse over: 10 hr, Route: IV, Dosing Weight 61.818 kg, Total Volume: 1,000, Start date: 11/14/17 10:20:00 CDT, Duration: 30 day, Stop date: 12/14/17 10:19:00 CDT, 1.63, m2 Sodium 2018-0 No 1,000 mL, Memori a Chloride 5-21 Rate: 100 l 0.9% IV 15:20: ml/hr, [place] 1,000 mL 00 Infuse over: 10 hr, Route: IV, Dosing Weight 61.818 kg, Total Volume: 1,000, Start date: 11/14/17 10:20:00 CDT, Duration: 30 day, Stop date: 12/14/17 10:19:00 CDT, 1.63, m2 Vitamin B12 2018-0 Yes 2,500 Memor ia 2500 mcg 5-21 [...] Daily, 0 Kishore n 00 Refill(s) celecoxib 0 No 200 mg = 1 Me moria [...] Daily, 0 Kishore n 00 Refill(s) labetalol 2017-0 No 1/2 tab, Hossein diana 100 mg oral 5-21 PO, BID, 0 l tablet 14:51: Refill(s) Kishore n 00 labetalol 2017-0 No 1/2 tab, Hossein diana 100 mg oral 5-21 PO, BID, 0 l tablet 14:51: Refill(s) Kishore n 00 labetalol 2017-0 No 1/2 tab, Hossein diana 100 mg oral 5-21 PO, BID, 0 l tablet 14:51: Refill(s) Kishore n 00 labetalol 2017-0 No 1/2 tab, Hossein diana 100 mg oral 5-21 PO, BID, 0 l tablet 14:51: Refill(s) Kishore n 00 labetalol 2018-0 No 1/2 tab, Hossein diana 100 mg oral 5-21 PO, BID, 0 l tablet 14:51: Refill(s) Kishore n 00 labetalol 2017-0 No 1/2 tab, Hossein diana 100 mg oral 5-21 PO, BID, 0 l tablet 14:51: Refill(s) Kishore n 00 Omnipaque 2017-0 No Notes: Memori a 350 5-11 (Same [...] Black; E - [employer] Trash Bin Alendronate 2013-0 No 70 mg, Hossein diana 8-18 Route: PO, l 14:00: Drug form: [place] 00 EFTAB, QMon, Dosing Weight 65.909, kg, Start date: 02/11/14 9:00:00, Duration: 30 day, Stop date: 03/11/14 9:00:00 Alendronate 2013-0 No 70 mg, Hossein diana 8-18 Route: PO, l 14:00: Drug form: [place] 00 EFTAB, QMon, Dosing Weight 65.909, kg, Start date: 02/11/14 9:00:00, Duration: 30 day, Stop date: 03/11/14 9:00:00 Alendronate 2013-0 No 70 mg, Hossein diana 8-18 Route: PO, l 14:00: Drug form: [place] 00 EFTAB, QMon, Dosing Weight 65.909, kg, Start date: 02/11/14 9:00:00, Duration: 30 day, Stop date: 03/11/14 9:00:00 Alendronate 2014-0 No 70 mg, Hossein diana 8-18 Route: PO, l 14:00: Drug form: [place] EFTAB, QMon, Dosing Weight 65.909, kg, Start date: 02/11/14 9:00:00, Duration: 30 day, Stop date: 03/11/14 9:00:00 Alendronate 2014-0 No 70 mg, Hossein diana 8-18 Route: PO, l 14:00: Drug form: [place] EFTAB, QMon, Dosing Weight 65.909, kg, Start date: 02/11/14 9:00:00, Duration: 30 day, Stop date: 03/11/14 9:00:00 Alendronate 2014-0 No 70 mg, Hossein diana 8-18 Route: PO, l 14:00: Drug form: [place] EFTAB, QMon, Dosing Weight 65.909, kg, Start date: 02/11/14 9:00:00, Duration: 30 day, Stop date: 03/11/14 9:00:00 Fosamax 2013-0 No Notes: Memoria 8-18 Give 30 l 11:30: min before [place] 00 breakfast w/6oz water. Sit upright for 30 min after dose. "Do Not Crush" (Same as: Fosamax) Fosamax No Notes: Memoria 8-18 Give 30 l 11:30: min before [place] 00 breakfast w/6oz water. Sit upright for 30 min after dose. "Do Not Crush" (Same as: Fosamax) Fosamax No Notes: Memoria 8-18 Give 30 l 11:30: min before [place] 00 breakfast w/6oz water. Sit upright for 30 min after dose. "Do Not Crush" (Same as: Fosamax) Fosamax No Notes: Memoria 8-18 Give 30 l 11:30: min before [place] 00 breakfast w/6oz water. Sit upright for 30 min after dose. "Do Not Crush" (Same as: Fosamax) Fosamax No Notes: Memoria 8-18 Give 30 l 11:30: min before [place] 00 breakfast w/6oz water. Sit upright for 30 min after dose. "Do Not Crush" (Same as: Fosamax) Fosamax No Notes: Memoria 8-18 Give 30 l 11:30: min before [place] 00 breakfast w/6oz water. Sit upright for 30 min after dose. "Do Not Crush" (Same as: Fosamax) Lidocaine Yes Special Memor ia Hydrochlori 8-17 Instructio l de 0.05 13:32: ns: Remove Herm karina MG/MG 00 after 12 Transdermal hours Patch [Lidoderm] Acetaminoph Yes 1 tab, PO, Memoria en 325 MG / 8-17 Q4H, Pain l Hydrocodone 13:32: Score 4-6, [place] Bitartrate 00 # 24 tab, 5 MG Oral 0 Tablet Refill(s) Lidocaine Yes Special Memor ia Hydrochlori 8-17 Instructio l de 0.05 13:32: ns: Remove Herm karina MG/MG 00 after 12 Transdermal hours Patch [Lidoderm] Acetaminoph Yes 1 tab, PO, Memoria en 325 MG / 8-17 Q4H, Pain l Hydrocodone 13:32: Score 4-6, [place] Bitartrate 00 # 24 tab, 5 MG Oral 0 Tablet Refill(s) Lidocaine Yes Special Memor ia Hydrochlori 8-17 Instructio l de 0.05 13:32: ns: Remove Herm karina MG/MG 00 after 12 Transdermal hours Patch [Lidoderm] Acetaminoph Yes 1 tab, PO, Memoria en 325 MG / 8-17 Q4H, Pain l Hydrocodone 13:32: Score 4-6, [place] Bitartrate 00 # 24 tab, 5 MG Oral 0 Tablet Refill(s) Lidocaine Yes Special Memor ia Hydrochlori 8-17 Instructio l de 0.05 13:32: ns: Remove Herm karina MG/MG 00 after 12 Transdermal hours Patch [Lidoderm] Acetaminoph Yes 1 tab, PO, Memoria en 325 MG / 8-17 Q4H, Pain l Hydrocodone 13:32: Score 4-6, [place] Bitartrate 00 # 24 tab, 5 MG Oral 0 Tablet Refill(s) Lidocaine Yes Special Memor ia Hydrochlori 8-17 Instructio l de 0.05 13:32: ns: Remove Herm karina MG/MG 00 after 12 Transdermal hours Patch [Lidoderm] Acetaminoph Yes 1 tab, PO, Memoria en 325 MG / 8-17 Q4H, Pain l Hydrocodone 13:32: Score 4-6, [place] Bitartrate 00 # 24 tab, 5 MG Oral 0 Tablet Refill(s) Lidocaine Yes Special Memor ia Hydrochlori 8-17 Instructio l de 0.05 13:32: ns: Remove Herm karina MG/MG 00 after 12 Transdermal hours Patch [Lidoderm] Acetaminoph Yes 1 tab, PO, Memoria en 325 MG / 8-17 Q4H, Pain l Hydrocodone 13:32: Score 4-6, [place] Bitartrate 00 # 24 tab, 5 MG Oral 0 Tablet Refill(s) Magnesium 2013-0 No 2 gm, 50 Hossein diana Sulfate 8-17 mL, Route: l 12:59: IVPB, Drug [place] 00 form: INJ, ONCE, Dosing Weight 65.909, kg, Start date: 02/10/14 7:59:00, Duration: 2 hr, Stop date: 02/10/14 7:59:00 Magnesium 2013-0 No 2 gm, 50 Hossein diana Sulfate 8-17 mL, Route: l 12:59: IVPB, Drug [place] 00 form: INJ, ONCE, Dosing Weight 65.909, kg, Start date: 02/10/14 7:59:00, Duration: 2 hr, Stop date: 02/10/14 7:59:00 Magnesium 2013-0 No 2 gm, 50 Hossein diana Sulfate 8-17 mL, Route: l 12:59: IVPB, Drug [place] 00 form: INJ, ONCE, Dosing Weight 65.909, kg, Start date: 02/10/14 7:59:00, Duration: 2 hr, Stop date: 02/10/14 7:59:00 Magnesium 2014-0 No 2 gm, 50 Hossein diana Sulfate 8-17 mL, Route: l 12:59: IVPB, Drug [place] 00 form: INJ, ONCE, Dosing Weight 65.909, kg, Start date: 02/10/14 7:59:00, Duration: 2 hr, Stop date: 02/10/14 7:59:00 Magnesium 2014-0 No 2 gm, 50 Hossein diana Sulfate 8-17 mL, Route: l 12:59: IVPB, Drug [place] 00 form: INJ, ONCE, Dosing Weight 65.909, kg, Start date: 02/10/14 7:59:00, Duration: 2 hr, Stop date: 02/10/14 7:59:00 Magnesium 2014-0 No 2 gm, 50 Hossein diana Sulfate 8-17 mL, Route: l 12:59: IVPB, Drug [place] 00 form: INJ, ONCE, [...] ia 8-16 (Same as: l 14:07: Prinivil, [place] 00 Zestril) Atenolol 50 No Notes: Hossein diana MG Oral 8-16 (Same l Tablet 14:07: As:Tenormi Lilian nn 00 n) Lisinopril No Notes: Memor ia 8-16 (Same as: l 14:07: Prinivil, [place] 00 Zestril) Atenolol 50 No Notes: Hossein diana MG Oral 8-16 (Same l Tablet 14:07: As:Tenormi Lilian nn 00 n) Lisinopril No Notes: Memor ia 8-16 (Same as: l 14:07: Prinivil, [place] 00 Zestril) Atenolol 50 No Notes: Hossein diana MG Oral 8-16 (Same l Tablet 14:07: As:Tenormi Lilian nn 00 n) Lisinopril No Notes: Memor ia 8-16 (Same as: l 14:07: Prinivil, [place] 00 Zestril) Lidocaine No Notes: Memori a [...] before applicatio n of new patch" Sodium 0 No 250 mL, Memoria Chloride 8-14 Route: l 0.9% IV 21:19: IVPB, [place] 00 Start date: 02/07/14 16:19:00, Duration: 30 day, Stop date: 03/09/14 16:18:00, PRN Line Flush BD Normal No Notes: Memori a Saline 8-14 (Same as: l Flush 21:19: BD [place] 00 Posiflush) Sodium 0 No 250 mL, Memoria Chloride 8-14 Route: l 0.9% IV 21:19: IVPB, [place] 00 Start date: 02/07/14 16:19:00, Duration: 30 day, Stop date: 03/09/14 16:18:00, PRN Line Flush BD Normal 0 No Notes: Memori a Saline 8-14 (Same as: l Flush 21:19: BD [place] 00 Posiflush) Sodium 0 No 250 mL, Memoria Chloride 8-14 Route: l 0.9% IV 21:19: IVPB, [place] 00 Start date: 02/07/14 16:19:00, Duration: 30 day, Stop date: 03/09/14 16:18:00, PRN Line Flush BD Normal 0 No Notes: Memori a Saline 8-14 (Same as: l Flush 21:19: BD [place] 00 Posiflush) Sodium 2013-0 No 250 mL, Memoria Chloride 8-14 Route: l 0.9% IV 21:19: IVPB, [place] 00 Start date: 02/07/14 16:19:00, Duration: 30 day, Stop date: 03/09/14 16:18:00, PRN Line Flush BD Normal No Notes: Memori a Saline 8-14 (Same as: l Flush 21:19: BD [place] 00 Posiflush) Sodium No 250 mL, Memoria Chloride 8-14 Route: l 0.9% IV 21:19: IVPB, Jesús Start date: 02/07/14 16:19:00, Duration: 30 day, Stop date: 03/09/14 16:18:00, PRN Line Flush BD Normal No Notes: Memori a Saline 8-14 (Same as: l Flush 21:19: BD [place] 00 Posiflush) Sodium No 250 mL, Memoria Chloride 8-14 Route: l 0.9% IV 21:19: IVPB, Jesús Start date: 02/07/14 16:19:00, Duration: 30 day, Stop date: 03/09/14 16:18:00, PRN Line Flush BD Normal No Notes: Memori a Saline 8-14 (Same as: l Flush 21:19: BD [place] 00 Posiflush) Flexeril No Notes: Memoria 8-14 (Same As: l 21:12: Flexeril) [place] Flexeril No Notes: Memoria 8-14 (Same As: l 21:12: Flexeril) [place] Flexeril No Notes: Memoria 8-14 (Same As: l 21:12: Flexeril) [place] Flexeril No Notes: Memoria 8-14 (Same As: l 21:12: Flexeril) [place] Flexeril No Notes: Memoria 8-14 (Same As: l 21:12: Flexeril) [place] Flexeril No Notes: Memoria 8-14 (Same As: l 21:12: Flexeril) [place] 00 Enoxaparin No Notes: Memor ia 8-14 (Same as: l 17:00: Lovenox) Enoxaparin No Notes: Memor ia 8-14 (Same as: l 17:00: Lovenox) [place] 00 Enoxaparin No Notes: Memor ia 8-14 (Same as: l 17:00: Lovenox) [place] Enoxaparin No Notes: Memor ia 8-14 (Same as: l 17:00: Lovenox) Jesús Enoxaparin No Notes: [facility] 8-14 (Same as: l 17:00: Lovenox) Jesús Enoxaparin No Notes: [facility] 8-14 (Same as: l 17:00: Lovenox) Sodium 2013-0 No 500 mL, [facility] Chloride 8-14 500 ml/hr, l 0.154 16:06: [facility] [place] MEQ/ML 00 Over: 1 Injectable hr, Route: Solution IV, 500, Drug form: INJ, ONCE, Priority: STAT, Dosing Weight 65.909 kg, Start date: 02/07/14 11:06:00, Duration: 1 doses or times, Stop date: 02/07/14 11:06:00 Sodium 2013-0 No 500 mL, [facility] Chloride 8-14 500 ml/hr, l 0.154 16:06: [facility] [place] MEQ/ML 00 Over: 1 Injectable hr, Route: Solution IV, 500, Drug form: INJ, ONCE, Priority: STAT, Dosing Weight 65.909 kg, Start date: 02/07/14 11:06:00, Duration: 1 doses or times, Stop date: 02/07/14 11:06:00 Sodium 2013-0 No 500 mL, [facility] Chloride 8-14 500 ml/hr, l 0.154 16:06: [facility] [place] MEQ/ML 00 Over: 1 Injectable hr, Route: Solution IV, 500, Drug form: INJ, ONCE, Priority: STAT, Dosing Weight 65.909 kg, Start date: 02/07/14 11:06:00, Duration: 1 doses or times, Stop date: 02/07/14 11:06:00 Sodium 2014-0 No 500 mL, [facility] Chloride 8-14 500 ml/hr, l 0.154 16:06: [facility] [place] MEQ/ML 00 Over: 1 Injectable hr, Route: Solution IV, 500, Drug form: INJ, ONCE, Priority: STAT, Dosing Weight 65.909 kg, Start date: 02/07/14 11:06:00, Duration: 1 doses or times, Stop date: 02/07/14 11:06:00 Sodium 2014-0 No 500 mL, [facility] Chloride 8-14 500 ml/hr, l 0.154 16:06: [facility] [place] MEQ/ML 00 Over: 1 Injectable hr, Route: Solution IV, 500, Drug form: INJ, ONCE, Priority: STAT, Dosing Weight 65.909 kg, Start date: 02/07/14 11:06:00, Duration: 1 doses or times, Stop date: 02/07/14 11:06:00 Sodium 2014-0 No 500 mL, [facility] Chloride 8-14 500 ml/hr, l 0.154 16:06: [facility] [place] MEQ/ML 00 Over: 1 Injectable hr, Route: Solution IV, 500, Drug form: INJ, ONCE, Priority: STAT, Dosing Weight 65.909 kg, Start date: 02/07/14 11:06:00, Duration: 1 doses or times, Stop date: 02/07/14 11:06:00 Ketorolac 2013-0 No 4 days [facility] 8-14 l 16:03: [place] 00 Ketorolac No 4 days [facility] 8-14 l 16:03: [place] 00 Ketorolac No 4 days [facility] 8-14 l 16:03: [place] 00 Ketorolac 0 No 4 days [facility] 8-14 l 16:03: [place] 00 Ketorolac No 4 days [facility] 8-14 l 16:03: [place] 00 Ketorolac 0 No 4 days [facility] 8-14 l 16:03: [place] 00 Ascorbic No Notes: [facility] Acid / 02-07 (Same as: l [employer] 14:00: Vitamin C) He rmann BROOM 00 [...] Synthroid) Ascorbic No Notes: [facility] Acid / 8-14 (Same as: l [employer] 14:00: Vitamin C) He rmann BROOM 00 Preparation / Diosmin / Hesperidin Aspirin / No Notes: Do Mem oria Calcium 8-14 not crush l Carbonate 14:00: or chew. Herm karina 00 (Same As: Ecotrin) Thyroxine No Notes: Memori a 8-14 Take 1 l 14:00: hour [place] 00 before or 2 hours after meal; Enteral feeds may interefere with the absorption of this medication .(Same as:Levothr oid, Synthroid) Ascorbic No Notes: Memoria Acid / 8-14 (Same as: l [employer]S 14:00: Vitamin C) He ann BROOM 00 Preparation / Diosmin / Hesperidin [...] Synthroid) Ascorbic No Notes: Memoria Acid / 8-14 (Same as: l YOU[employer]IN[employer]S 14:00: Vitamin C) He ann BROOM 00 Preparation / Diosmin / Hesperidin [...] Synthroid) Ascorbic No Notes: Memoria Acid / 8-14 (Same as: l YOU[employer]IN[employer]'S 14:00: Vitamin C) He rmann BROOM 00 Preparation / Diosmin / Hesperidin Aspirin / No Notes: Do Mem oria Calcium 8-14 not crush l Carbonate 14:00: or chew. Herm karina 00 (Same As: Ecotrin) Thyroxine No Notes: Memori a 8-14 Take 1 l 14:00: hour [place] 00 before or 2 hours after meal; Enteral feeds may interefere with the absorption of this medication .(Same as:Levothr oid, Synthroid) Ascorbic No Notes: Memoria Acid / 14 (Same as: l [employer]S 14:00: Vitamin C) He rmann BROOM 00 [...] oria 8-14 IV push l 12:30: reconstitu [place] 00 te with 10 ml 0.9% sodium chloride and push over 2 minutes. (Same as: Protonix) pantoprazol No Notes: Hossein diana e 8-14 Tablet l 12:30: should not [place] 00 be chewed or crushed. (Same as: Protonix) Protonix No Notes: For Mem oria 8-14 IV push l 12:30: reconstitu [place] 00 te with 10 ml 0.9% sodium chloride and push over 2 minutes. (Same as: Protonix) pantoprazol No Notes: Hossein diana e 8-14 Tablet l 12:30: should not [place] 00 be chewed or crushed. (Same as: Protonix) Protonix No Notes: For Mem oria 8-14 IV push l 12:30: reconstitu [place] 00 te with 10 ml 0.9% sodium chloride and push over 2 minutes. (Same as: Protonix) pantoprazol No Notes: Hossein diana e 8-14 Tablet l 12:30: should not [place] 00 be chewed or crushed. (Same as: Protonix) Protonix No Notes: For Mem oria 8-14 IV push l 12:30: reconstitu [place] 00 te with 10 ml 0.9% sodium chloride and push over 2 minutes. (Same as: Protonix) pantoprazol No Notes: Hossein diana e 8-14 Tablet l 12:30: should not [place] 00 be chewed or crushed. (Same as: Protonix) Protonix No Notes: For Mem oria 8-14 IV push l 12:30: reconstitu [place] 00 te with 10 ml 0.9% sodium chloride and push over 2 minutes. (Same as: Protonix) pantoprazol No Notes: Hossein diana e 8-14 Tablet l 12:30: should not [place] 00 be chewed or crushed. (Same as: Protonix) Protonix No Notes: For Mem oria 8-14 IV push l 12:30: reconstitu [place] 00 te with 10 ml 0.9% sodium chloride and push over 2 minutes. (Same as: Protonix) pantoprazol No Notes: Hossein diana e 8-14 Tablet l 12:30: should not [place] 00 be chewed or crushed. (Same as: Protonix) Magnesium 2013-0 No 2 gm, 50 Hossein diana Sulfate 8-14 mL, Route: l 10:48: IVPB, Drug [place] 00 form: INJ, ONCE, Dosing Weight 65.909, kg, Start date: 02/07/14 5:48:00, Duration: 2 hr, Stop date: 02/07/14 5:48:00 Magnesium 2014-0 No 2 gm, 50 Hossein diana Sulfate 8-14 mL, Route: l 10:48: IVPB, Drug [place] 00 form: INJ, ONCE, Dosing Weight 65.909, kg, Start date: 02/07/14 5:48:00, Duration: 2 hr, Stop date: 02/07/14 5:48:00 Magnesium 2014-0 No 2 gm, 50 Hossein diana Sulfate 8-14 mL, Route: l 10:48: IVPB, Drug [place] 00 form: INJ, ONCE, Dosing Weight 65.909, kg, Start date: 02/07/14 5:48:00, Duration: 2 hr, Stop date: 02/07/14 5:48:00 Magnesium 2014-0 No 2 gm, 50 Hossein diana Sulfate 8-14 mL, Route: l 10:48: IVPB, Drug [place] 00 form: INJ, ONCE, Dosing Weight 65.909, kg, Start date: 02/07/14 5:48:00, Duration: 2 hr, Stop date: 02/07/14 5:48:00 Magnesium 2014-0 No 2 gm, 50 Hosseni diana Sulfate 8-14 mL, Route: l 10:48: IVPB, Drug [place] 00 form: INJ, ONCE, Dosing Weight 65.909, kg, Start date: 02/07/14 5:48:00, Duration: 2 hr, Stop date: 02/07/14 5:48:00 Magnesium 2014-0 No 2 gm, 50 Hossein diana Sulfate 8-14 mL, Route: l 10:48: IVPB, Drug [place] 00 form: INJ, ONCE, Dosing Weight 65.909, kg, Start date: 02/07/14 5:48:00, Duration: 2 hr, Stop date: 02/07/14 5:48:00 Magnesium 2014-0 No 2 gm, 50 Hossein diana Sulfate 8-14 mL, Route: l 10:47: IVPB, Drug [place] 00 form: INJ, ONCE, Dosing Weight 65.909, kg, Start date: 02/07/14 5:47:00, Duration: 2 hr, Stop date: 02/07/14 5:47:00 Magnesium 2014-0 No 2 gm, 50 Hossein diana Sulfate 8-14 mL, Route: l 10:47: IVPB, Drug [place] 00 form: INJ, ONCE, Dosing Weight 65.909, kg, Start date: 02/07/14 5:47:00, Duration: 2 hr, Stop date: 02/07/14 5:47:00 Magnesium 2014-0 No 2 gm, 50 Hossein diana Sulfate 8-14 mL, Route: l 10:47: IVPB, Drug [place] 00 form: INJ, ONCE, Dosing Weight 65.909, kg, Start date: 02/07/14 5:47:00, Duration: 2 hr, Stop date: 02/07/14 5:47:00 Magnesium 2014-0 No 2 gm, 50 Hossein diana Sulfate 8-14 mL, Route: l 10:47: IVPB, Drug [place] 00 form: INJ, ONCE, Dosing Weight 65.909, kg, Start date: 02/07/14 5:47:00, Duration: 2 hr, Stop date: 02/07/14 5:47:00 Magnesium 2014-0 No 2 gm, 50 Hossein diana Sulfate 8-14 mL, Route: l 10:47: IVPB, Drug [place] 00 form: INJ, ONCE, Dosing Weight 65.909, kg, Start date: 02/07/14 5:47:00, Duration: 2 hr, Stop date: 02/07/14 5:47:00 Magnesium 2014-0 No 2 gm, 50 Hossein diana Sulfate 8-14 mL, Route: l 10:47: IVPB, Drug [place] 00 form: INJ, ONCE, Dosing Weight 65.909, kg, Start date: 02/07/14 5:47:00, Duration: 2 hr, Stop date: 02/07/14 5:47:00 Hydralazine No Notes: Hossein diana 8-14 (Same as: l 04:27: Apresoline [place] 00 ) Push over 5 minutes Hydralazine No Notes: Hossein diana 8-14 (Same as: l 04:27: Apresoline [place] 00 ) Push over 5 minutes Hydralazine No Notes: Hossein diana 8-14 (Same as: l 04:27: Apresoline [place] 00 ) Push over 5 minutes Hydralazine No Notes: Hossein diana 8-14 (Same as: l 04:27: Apresoline [place] 00 ) Push over 5 minutes Hydralazine No Notes: Hossein diana 8-14 (Same as: l 04:27: Apresoline [place] 00 ) Push over 5 minutes Hydralazine No Notes: Hossein diana 8-14 (Same as: l 04:27: Apresoline [place] 00 ) Push over 5 minutes Phenergan 2013-0 No 12.5 mg, Hossein diana 8-14 Route: l 04:21: IVPB, [place] 00 ONCE, Dosing Weight 65.909, kg, PRN Nausea & Vomiting, Start date: 02/06/14 23:21:00, Stop date: 03/08/14 23:20:00 Phenergan 2013-0 No 12.5 mg, Hossein diana 8-14 Route: l 04:21: IVPB, [place] 00 ONCE, Dosing Weight 65.909, kg, PRN Nausea & Vomiting, Start date: 02/06/14 23:21:00, Stop date: 03/08/14 23:20:00 Phenergan 2014-0 No 12.5 mg, Hossein diana 8-14 Route: l 04:21: IVPB, [place] 00 ONCE, Dosing Weight 65.909, kg, PRN Nausea & Vomiting, Start date: 02/06/14 23:21:00, Stop date: 03/08/14 23:20:00 Phenergan 2014-0 No 12.5 mg, Hossein diana 8-14 Route: l 04:21: IVPB, [place] 00 ONCE, Dosing Weight 65.909, kg, PRN Nausea & Vomiting, Start date: 02/06/14 23:21:00, Stop date: 03/08/14 23:20:00 Phenergan 2014-0 No 12.5 mg, Hossein diana 8-14 Route: l 04:21: IVPB, [place] 00 ONCE, Dosing Weight 65.909, kg, PRN Nausea & Vomiting, Start date: 02/06/14 23:21:00, Stop date: 03/08/14 23:20:00 Phenergan 2014-0 No 12.5 mg, Hossein diana 8-14 Route: l 04:21: IVPB, [place] 00 ONCE, Dosing Weight 65.909, kg, PRN Nausea & Vomiting, Start date: 02/06/14 23:21:00, Stop date: 03/08/14 23:20:00 Zinacef + 2014-0 No Notes: Memori a Sodium 8-14 (Same As: l Chloride 02:11: Kefurox, Lilian nn 0.9% IV 100 00 Zinacef) mL Zinacef + 2014-0 No Notes: Memori a Sodium 8-14 (Same As: l Chloride 02:11: Kefurox, Lilian nn 0.9% IV 100 00 Zinacef) mL Zinacef + 2014-0 No Notes: Memori a Sodium 8-14 (Same As: l Chloride 02:11: Kefurox, Lilian nn 0.9% IV 100 00 Zinacef) mL Zinacef + 2013-0 No Notes: Memori a Sodium 8-14 (Same As: l Chloride 02:11: Kefurox, Lilian nn 0.9% IV 100 00 Zinacef) mL Zinacef + 2013-0 No Notes: Memori a Sodium 8-14 (Same As: l Chloride 02:11: Kefurox, Lilian nn 0.9% IV 100 00 Zinacef) mL Zinacef + 2013-0 No Notes: Memori a Sodium 8-14 (Same As: l Chloride 02:11: Kefurox, Lilian nn 0.9% IV 100 00 Zinacef) mL Simvastatin 2013- No Notes: Hossein diana 8-14 (Same as: l 02:00: Zocor) [place] Simvastatin No Notes: Hossein diana 8-14 (Same as: l 02:00: Zocor) Simvastatin No Notes: Hossein diana 8-14 (Same as: l 02:00: Zocor) [place] 00 Simvastatin No Notes: Hossein diana 8-14 (Same as: l 02:00: Zocor) [place] 00 Simvastatin No Notes: Hossein diana 8-14 (Same as: l 02:00: Zocor) [place] Simvastatin No Notes: Hossein diana 8-14 (Same as: l 02:00: Zocor) Fentanyl No Notes: Memoria 8-13 (Same as: l 22:36: Sublimaze) Preservati ve free. Fentanyl No Notes: Memoria 8-13 (Same as: l 22:36: Sublimaze) [place] 00 Preservati ve free. Fentanyl No Notes: Memoria 8-13 (Same as: l 22:36: Sublimaze) [place] 00 Preservati ve free. Fentanyl No Notes: Memoria 8-13 (Same as: l 22:36: Sublimaze) [place] 00 Preservati ve free. Fentanyl No Notes: Memoria 8-13 (Same as: l 22:36: Sublimaze) [place] 00 Preservati ve free. Fentanyl No Notes: Memoria 8-13 (Same as: l 22:36: Sublimaze) [place] 00 Preservati ve free. Fentanyl No Notes: Memoria 8-13 (Same as: l 22:35: Sublimaze) [place] 00 Preservati ve free. Fentanyl No Notes: Memoria 8-13 (Same as: l 22:35: Sublimaze) [place] 00 Preservati ve free. Fentanyl No Notes: Memoria 8-13 (Same as: l 22:35: Sublimaze) [place] 00 Preservati ve free. Fentanyl No Notes: Memoria 8-13 (Same as: l 22:35: Sublimaze) [place] 00 Preservati ve free. Fentanyl No Notes: Memoria 8-13 (Same as: l 22:35: Sublimaze) [place] 00 Preservati ve free. Fentanyl No Notes: Memoria 8-13 (Same as: l 22:35: Sublimaze) [place] 00 Preservati ve free. cilostazol No Notes: Memor ia 8-13 Non-Formul l 22:00: david Drug. [place] 00 (Same As: Pletal) Fish Oil No Route: PO, Mem oria 8-13 BID, l 22:00: Dosing Weight 65.909, kg, Start date: 02/06/14 17:00:00, Duration: 30 day, Stop date: 03/08/14 9:00:00 Docusate No Notes: Memoria Sodium 100 8-13 (Same as: l MG Oral 22:00: Colace) [place] Capsule (Do Not Crush) Vitamin C No Route: PO, Me moria 8-13 BID, l 22:00: Dosing Weight 65.909, kg, Start date: 02/06/14 17:00:00, Duration: 30 day, Stop date: 03/08/14 9:00:00 cilostazol No Notes: Memor ia 8-13 Non-Formul l 22:00: david Drug. [place] 00 (Same As: Pletal) Fish Oil No Route: PO, Mem oria 8-13 BID, l 22:00: Dosing Weight 65.909, kg, Start date: 02/06/14 17:00:00, Duration: 30 day, Stop date: 03/08/14 9:00:00 Docusate No Notes: Memoria Sodium 100 8-13 (Same as: l MG Oral 22:00: Colace) [place] Capsule 00 (Do Not Crush) Vitamin C No Route: PO, Me moria 8-13 BID, l 22:00: Dosing Weight 65.909, kg, Start date: 02/06/14 17:00:00, Duration: 30 day, Stop date: 03/08/14 9:00:00 cilostazol No Notes: Memor ia 8-13 Non-Formul l 22:00: david Drug. [place] 00 (Same As: Pletal) Fish Oil No Route: PO, Mem oria 8-13 BID, l 22:00: Dosing Weight 65.909, kg, Start date: 02/06/14 17:00:00, Duration: 30 day, Stop date: 03/08/14 9:00:00 Docusate No Notes: Memoria Sodium 100 8-13 (Same as: l MG Oral 22:00: Colace) [place] Capsule 00 (Do Not Crush) Vitamin C No Route: PO, Me moria 8-13 BID, l 22:00: Dosing Weight 65.909, kg, Start date: 02/06/14 17:00:00, Duration: 30 day, Stop date: 03/08/14 9:00:00 cilostazol No Notes: Memor ia 8-13 Non-Formul l 22:00: david Drug. [place] 00 (Same As: Pletal) Fish Oil No Route: PO, Mem oria 8-13 BID, l 22:00: Dosing Weight 65.909, kg, Start date: 02/06/14 17:00:00, Duration: 30 day, Stop date: 03/08/14 9:00:00 Docusate No Notes: Memoria Sodium 100 8-13 (Same as: l MG Oral 22:00: Colace) [place] Capsule 00 (Do Not Crush) Vitamin C No Route: PO, Me moria 8-13 BID, l 22:00: Dosing Weight 65.909, kg, Start date: 02/06/14 17:00:00, Duration: 30 day, Stop date: 03/08/14 9:00:00 cilostazol No Notes: Memor ia 8-13 Non-Formul l 22:00: david Drug. [place] 00 (Same As: Pletal) Fish Oil No Route: PO, Mem oria 8-13 BID, l 22:00: Dosing Weight 65.909, kg, Start date: 02/06/14 17:00:00, Duration: 30 day, Stop date: 03/08/14 9:00:00 Docusate No Notes: Memoria Sodium 100 8-13 (Same as: l MG Oral 22:00: Colace) [place] Capsule (Do Not Crush) Vitamin C No Route: PO, Me moria 8-13 BID, l 22:00: Dosing Weight 65.909, kg, Start date: 02/06/14 17:00:00, Duration: 30 day, Stop date: 03/08/14 9:00:00 cilostazol No Notes: Memor ia 8-13 Non-Formul l 22:00: david Drug. (Same As: [place]) Fish Oil No Route: PO, Mem oria 8-13 BID, l 22:00: Dosing Weight 65.909, kg, Start date: 02/06/14 17:00:00, Duration: 30 day, Stop date: 03/08/14 9:00:00 Docusate No Notes: Memoria Sodium 100 8-13 (Same as: l MG Oral 22:00: Colace) [place] Capsule (Do Not Crush) Vitamin C No Route: PO, Me moria 8-13 BID, l 22:00: Dosing Weight 65.909, kg, Start date: 02/06/14 17:00:00, Duration: 30 day, Stop date: 03/08/14 9:00:00 Albumin No Notes: Memoria [facility] LOT#: l 50 MG/ML 20:51: Her mckee Injectable 00 ___ Solution Mfg: (Same as: Albuminar) "blood product derivative " Albumin No Notes: Fidelina Mcdermott, 02-06 LOT#: l 50 MG/ML 20:51: Her mckee Injectable 00 ___ Solution Mfg: (Same as: Albuminar) "blood product derivative " Albumin No Notes: Fidelina Mcdermott [facility] LOT#: l 50 MG/ML 20:51: Her mckee Injectable 00 ___ Solution Mfg: (Same as: Albuminar) "blood product derivative " Albumin No Notes: Fidelina Mcdermott, [facility] 02[facility] LOT#: l 50 MG/ML 20:51: Her mckee Injectable 00 ___ Solution Mfg: (Same as: Albuminar) "blood product derivative " Albumin No Notes: Fidelina Mcdermott, [facility] 02[facility] LOT#: l 50 MG/ML 20:51: Her mckee Injectable 00 ___ Solution Mfg: (Same as: Albuminar) "blood product derivative " Albumin No Notes: Fidelina Mcdermott, [facility] 02[facility] LOT#: l 50 MG/ML 20:51: Her mckee Injectable 00 ___ Solution Mfg: (Same as: Albuminar) "blood product derivative " Zofran No Notes: Memoria 02-06 (Same as: l 20:50: Zofran) [place] 00 Norepinephr No Notes: Hossein diana ine 02-06 Same as: l 20:50: Levophed. [place] Administer by either central venous catheter or peripheral ly-inserte d central catheter (PICC) line. Concentrat ion: 0.032 mg / mL Zofran No Notes: Memoria 8- (Same as: l 20:50: Zofran) [place] Norepinephr No Notes: Hossein diana ine 8- Same as: l 20:50: Levophed. [place] Administer by either central venous catheter or peripheral ly-inserte d central catheter (PICC) line. Concentrat ion: 0.032 mg / mL Zofran No Notes: Memoria 8- (Same as: l 20:50: Zofran) [place] Norepinephr No Notes: Hossein diana ine 8- Same as: l 20:50: Levophed. [place] 00 Administer by either central venous catheter or peripheral ly-inserte d central catheter (PICC) line. Concentrat ion: 0.032 mg / mL Zofran No Notes: Memoria 8- (Same as: l 20:50: Zofran) [place] 00 Norepinephr No Notes: Hossein diana ine 8- Same as: l 20:50: Levophed. [place] Administer by either central venous catheter or peripheral ly-inserte d central catheter (PICC) line. Concentrat ion: 0.032 mg / mL Zofran No Notes: Memoria 8- (Same as: l 20:50: Zofran) [place] Norepinephr No Notes: Hossein diana ine 8- Same as: l 20:50: Levophed. [place] Administer by either central venous catheter or peripheral ly-inserte d central catheter (PICC) line. Concentrat ion: 0.032 mg / mL Zofran No Notes: Memoria 8-13 (Same as: l 20:50: Zofran) [place] Norepinephr No Notes: Hossein diana ine 8-13 Same as: l 20:50: Levophed. [place] Administer by either central venous catheter or peripheral ly-inserte d central catheter (PICC) line. Concentrat ion: 0.032 mg / mL Albumin No Notes: Fidelina Mcdermott [facility] LOT#: l 50 MG/ML 19:58: Her mckee Injectable 00 ___ Solution Mfg: (Same as: Albuminar) "blood product derivative " Albumin No Notes: Fidelina Mcdermott [facility] 02[facility] LOT#: l 50 MG/ML 19:58: Her mckee Injectable 00 ___ Solution Mfg: (Same as: Albuminar) "blood product derivative " Albumin No Notes: Fidelina Mcdermott [facility] 02[facility] LOT#: l 50 MG/ML 19:58: Her mckee Injectable 00 ___ Solution Mfg: (Same as: Albuminar) "blood product derivative " Albumin No Notes: Fidelina Mcdermott [facility] 02[facility] LOT#: l 50 MG/ML 19:58: Her mckee Injectable 00 ___ Solution Mfg: (Same as: Albuminar) "blood product derivative " Albumin No Notes: Fidelina Mcdermott [facility] 02[facility] LOT#: l 50 MG/ML 19:58: Her mckee Injectable 00 ___ Solution Mfg: (Same as: Albuminar) "blood product derivative " Albumin No Notes: Fidelina Mcdermott [facility] LOT#: l 50 MG/ML 19:58: Her mckee Injectable 00 ___ Solution Mfg: (Same as: Albuminar) "blood product derivative " Calcium No 1,000 mg, Memor ia Gluconate 02-06 50 mL, l 19:57: Route: [place] 00 IVPB, Drug form: INJ, ONCE, Dosing Weight 65.909, kg, Start date: 02/06/14 14:57:00, Stop date: 02/06/14 14:57:00 Calcium 2014-0 No 1,000 mg, Memor ia Gluconate 8-13 50 mL, l 19:57: Route: [place] 00 IVPB, Drug form: INJ, ONCE, Dosing Weight 65.909, kg, Start date: 02/06/14 14:57:00, Stop date: 02/06/14 14:57:00 Calcium 2014-0 No 1,000 mg, Memor ia Gluconate 8-13 50 mL, l 19:57: Route: [place] 00 IVPB, Drug form: INJ, ONCE, Dosing Weight 65.909, kg, Start date: 02/06/14 14:57:00, Stop date: 02/06/14 14:57:00 Calcium 2014-0 No 1,000 mg, Memor ia Gluconate 8-13 50 mL, l 19:57: Route: [place] 00 IVPB, Drug form: INJ, ONCE, Dosing Weight 65.909, kg, Start date: 02/06/14 14:57:00, Stop date: 02/06/14 14:57:00 Calcium 2014-0 No 1,000 mg, Memor ia Gluconate 8-13 50 mL, l 19:57: Route: [place] 00 IVPB, Drug form: INJ, ONCE, Dosing Weight 65.909, kg, Start date: 02/06/14 14:57:00, Stop date: 02/06/14 14:57:00 Calcium 2014-0 No 1,000 mg, Memor ia Gluconate 8-13 50 mL, l 19:57: Route: [place] 00 IVPB, Drug form: INJ, ONCE, Dosing Weight 65.909, kg, Start date: 02/06/14 14:57:00, Stop date: 02/06/14 14:57:00 Dextrose 2014-0 No 50 mL, Memoria 50% in 02-06 Route: l Water IV 19:22: IVP, Start Her date: 02/06/14 14:22:00, Duration: 30 day, Stop date: 03/08/14 14:21:00, PRN See Nurse's Notes Dextrose 2014-0 No 50 mL, Memoria 50% in 02-06 Route: l Water IV 19:22: IVP, Start Her mckee 00 date: 02/06/14 14:22:00, Duration: 30 day, Stop date: 03/08/14 14:21:00, PRN See Nurse's Notes Dextrose 0 No 50 mL, Memoria 50% in 02-06 Route: l Water IV 19:22: IVP, Start Her mckee 00 date: 02/06/14 14:22:00, Duration: 30 day, Stop date: 03/08/14 14:21:00, PRN See Nurse's Notes Dextrose 0 No 50 mL, Memoria 50% in 02-06 Route: l Water IV 19:22: IVP, Start Her mckee 00 date: 02/06/14 14:22:00, Duration: 30 day, Stop date: 03/08/14 14:21:00, PRN See Nurse's Notes Dextrose 0 No 50 mL, Memoria 50% in 02-06 Route: l Water IV 19:22: IVP, Start Her mckee 00 date: 02/06/14 14:22:00, Duration: 30 day, Stop date: 03/08/14 14:21:00, PRN See Nurse's Notes Dextrose 0 No 50 mL, Memoria 50% in 02-06 Route: l Water IV 19:22: IVP, Start Her mckee 00 date: 02/06/14 14:22:00, Duration: 30 day, Stop date: 03/08/14 14:21:00, PRN See Nurse's Notes Insulin 2013-0 No 60 units) Hossein diana regular 100 02-06 Stable for l unit + 19:21: 28 days at [facility] nn Sodium 00 room Chloride temperatur 0.9% IV 99 e Expires mL in days from ____Date Insulin 2013-0 No 60 units) Hossein diana regular 100 8 Stable for l unit + 19:21: 28 days at [facility] nn Sodium 00 room Chloride temperatur 0.9% IV 99 e Expires mL in days from ____Date Insulin 2014-0 No 60 units) Hossein diana regular 100 [...] Expires mL in days from ____Date Insulin 2013- No 60 units) Hossein diana regular 100 8-13 Stable for l unit + 19:21: 28 days at [facility] nn Sodium 00 room Chloride temperatur 0.9% IV 99 e Expires mL in days from ____Date Insulin 2013- No 60 units) Hossein diana regular 100 8-13 Stable for l unit + 19:21: 28 days at [place] nn Sodium 00 room Chloride temperatur 0.9% IV 99 e Expires mL in days from ____Date Saline No Notes: Memoria Flush 0.9% 02-06 (Same as: l 19:14: BD [place] 00 Posiflush) D5W 1/2NS + No Notes: Hossein diana KCL 20mEq/L 02-06 PREMIX IV l 1000ml 19:14: - Do Not Jes[place]s (Premix) 00 Alter 1,000 mL Acetaminoph No Notes: Do M emoria en 325 MG / 02-06 not exceed l Hydrocodone 19:14: 4gm/day of Jes[place] Bitartrate 00 acetaminop 10 MG Oral hen. (Same Tablet as: Mifflin 325/10) Morphine No Notes: Memoria - (Same l 19:14: as:MORPhin [place] 00 e Sulfate) Acetaminoph No Notes: Do M emoria en - not exceed l 19:14: 4 gm/day. Jes[place] 00 (Same as: Tylenol) acetaminoph No Notes: Do M emoria en-codeine 8- not exceed l #3 19:14: 4gm/day of [place] 00 acetaminop hen. (Same as: Tylenol with Codeine # 3) Acetaminoph No Notes: Hossein diana en 325 MG / 8 (Same as: l Hydrocodone 19:14: Mifflin [place] nn Bitartrate 00 325/5) Do 5 MG Oral not exceed Tablet 4gm/day of acetaminop hen. Saline No Notes: Memoria Flush 0.9% 8-13 (Same as: l 19:14: BD [place] 00 Posiflush) D5W 1/2NS + No Notes: Hossein diana KCL 20mEq/L 8- PREMIX IV l 1000ml 19:14: - Do Not Jes[place] (Premix) 00 Alter 1,000 mL Acetaminoph No Notes: Do M emoria en 325 MG / 02-06 not exceed l Hydrocodone 19:14: 4gm/day of [place] Bitartrate 00 acetaminop 10 MG Oral hen. (Same Tablet as: Mifflin 325/10) Morphine No Notes: Memoria 8-13 (Same l 19:14: as:MORPhin [place] 00 e Sulfate) Acetaminoph No Notes: Do M emoria en 8-13 not exceed l 19:14: 4 gm/day. Jes[place] 00 (Same as: Tylenol) acetaminoph No Notes: Do M emoria en-codeine 8- not exceed l #3 19:14: 4gm/day of [place] 00 acetaminop hen. (Same as: Tylenol with Codeine # 3) Acetaminoph No Notes: Hossein diana en 325 MG / 02-06 (Same as: l Hydrocodone 19:14: Mifflin [place] nn Bitartrate 00 325/5) Do 5 MG Oral not exceed Tablet 4gm/day of acetaminop hen. Saline No Notes: Memoria Flush 0.9% 8-13 (Same as: l 19:14: BD [place] 00 Posiflush) D5W 1/2NS + No Notes: Hossein diana KCL 20mEq/L 8-13 PREMIX IV l 1000ml 19:14: - Do Not [place] (Premix) 00 Alter 1,000 mL Acetaminoph No Notes: Do M emoria en 325 MG / 02-06 not exceed l Hydrocodone 19:14: 4gm/day of [place] Bitartrate 00 acetaminop 10 MG Oral hen. (Same Tablet as: Mifflin 325/10) Morphine No Notes: Memoria - (Same l 19:14: as:MORPhin [place] 00 e Sulfate) Acetaminoph No Notes: Do M emoria en 02-06 not exceed l 19:14: 4 gm/day. [place] 00 (Same as: Tylenol) acetaminoph No Notes: Do M emoria en-codeine 02-06 not exceed l #3 19:14: 4gm/day of Jesús 00 acetaminop hen. (Same as: Tylenol with Codeine # 3) Acetaminoph No Notes: Hossein diana en 325 MG / 02-06 (Same as: l Hydrocodone 19:14: Mifflin Lilian nn Bitartrate 00 325/5) Do 5 MG Oral not exceed Tablet 4gm/day of acetaminop hen. Saline No Notes: Memoria Flush 0.9% 02-06 (Same as: l 19:14: BD [place] 00 Posiflush) D5W 1/2NS + No Notes: Hossein diana KCL 20mEq/L 02-06 PREMIX IV l 1000ml 19:14: - Do Not [place] (Premix) 00 Alter 1,000 mL Acetaminoph No Notes: Do M emoria en 325 MG / 02-06 not exceed l Hydrocodone 19:14: 4gm/day of Jesús Bitartrate 00 acetaminop 10 MG Oral hen. (Same Tablet as: [place]if[place] 325/10) Morphine No Notes: Memoria - (Same l 19:14: as:MORPhin [place] 00 e Sulfate) Acetaminoph No Notes: Do M emoria en 02-06 not exceed l 19:14: 4 gm/day. [place] 00 (Same as: Tylenol) acetaminoph No Notes: Do M emoria en-codeine 8- not exceed l #3 19:14: 4gm/day of [place] 00 acetaminop hen. (Same as: Tylenol with Codeine # 3) Acetaminoph No Notes: Hossein diana en 325 MG / 8-13 (Same as: l Hydrocodone 19:14: Mifflin Lilian nn Bitartrate 00 325/5) Do 5 MG Oral not exceed Tablet 4gm/day of acetaminop hen. Saline No Notes: Memoria Flush 0.9% 8-13 (Same as: l 19:14: BD [place] 00 Posiflush) D5W 1/2NS + No Notes: Hossein diana KCL 20mEq/L 8-13 PREMIX IV l 1000ml 19:14: - Do Not [place] (Premix) 00 Alter 1,000 mL Acetaminoph No Notes: Do M emoria en 325 MG / 8 not exceed l Hydrocodone 19:14: 4gm/day of Jes[place] Bitartrate 00 acetaminop 10 MG Oral hen. (Same Tablet as: Mif[place] 325/10) Morphine No Notes: Memoria 8-13 (Same l 19:14: as:MORPhin [place] 00 e Sulfate) Acetaminoph No Notes: Do M emoria en 8-13 not exceed l 19:14: 4 gm/day. [place] 00 (Same as: Tylenol) acetaminoph No Notes: Do M emoria en-codeine 8- not exceed l #3 19:14: 4gm/day of Jesús 00 acetaminop hen. (Same as: Tylenol with Codeine # 3) Acetaminoph No Notes: Hossein diana en 325 MG / 8 (Same as: l Hydrocodone 19:14: Mifflin Lilian nn Bitartrate 00 325/5) Do 5 MG Oral not exceed Tablet 4gm/day of acetaminop hen. Saline No Notes: Memoria Flush 0.9% 8-13 (Same as: l 19:14: BD Jesús 00 Posiflush) D5W 1/2NS + No Notes: Hossein diana KCL 20mEq/L 8-13 PREMIX IV l 1000ml 19:14: - Do Not [place] (Premix) 00 Alter 1,000 mL Acetaminoph No Notes: Do M emoria en 325 MG / 02-06 not exceed l Hydrocodone 19:14: 4gm/day of Jesús Bitartrate 00 acetaminop 10 MG Oral hen. (Same Tablet as: Mifflin 325/10) Morphine No Notes: Memoria 02-06 (Same l 19:14: as:MORPhin Jesús 00 e Sulfate) Acetaminoph No Notes: Do M emoria en 02-06 not exceed l 19:14: 4 gm/day. [place] 00 (Same as: Tylenol) acetaminoph No Notes: Do M emoria en-codeine 02-06 not exceed l #3 19:14: 4gm/day of [place] 00 acetaminop hen. (Same as: Tylenol with Codeine # 3) Acetaminoph No Notes: Hossein diana en 325 MG / 02-06 (Same as: l Hydrocodone 19:14: Mifflin Lilian nn Bitartrate 00 325/5) Do 5 MG Oral not exceed Tablet 4gm/day of acetaminop hen. levothyroxi Yes Daily, 0 Me moria ne 50 mcg 808 Refill(s) l (0.05 mg) 16:02: Jesús oral tablet 00 Nitroglycer Yes 1 inch, Mem oria in 0.02 8-08 Daily, 0 l MG/MG 16:02: Refill(s) [place] Topical 00 Ointment simvastatin Yes 10 mg = 1 M emoria 10 mg oral 08 tab, PO, l tablet 16:02: Bedtime, # [...] = 1 M emoria e 75 mg 808 tab, PO, l oral tablet 16:02: BID, 0 Herm karina 00 Refill(s) cilostazol Yes 100 mg = 1 M emoria 100 mg oral 8-08 tab, PO, l tablet 16:02: BID, 0 Jesús 00 Refill(s) lisinopril Yes 10 mg = 1 Me moria 10 mg oral 8-08 tab, PO, l tablet 16:02: Bedtime, 0 Lilian nn 00 Refill(s) levothyroxi Yes Daily, 0 Me moria ne 50 mcg 8-08 Refill(s) l (0.05 mg) 16:02: Jesús oral [...] 8-08 tab, l Tablet 16:02: Daily, 0 [place] 00 Refill(s) dipyridamol Yes 75 mg = 1 M emoria e 75 mg 8-08 tab, PO, l oral tablet 16:02: BID, 0 Herm karina 00 Refill(s) cilostazol Yes 100 mg = 1 M emoria 100 mg oral 8-08 tab, PO, l tablet 16:02: BID, 0 [place] 00 Refill(s) lisinopril Yes 10 mg = 1 Me moria 10 mg oral 8-08 tab, PO, l tablet 16:02: Bedtime, 0 Lilian nn 00 Refill(s) levothyroxi 2013-0 Yes Daily, 0 Me moria ne 50 mcg 8-08 Refill(s) l (0.05 mg) 16:02: Jesús oral tablet 00 Nitroglycer Yes 1 inch, Mem oria in 0.02 8-08 Daily, 0 l MG/MG 16:02: Refill(s) Jesús Topical 00 Ointment simvastatin Yes 10 mg = 1 M emoria 10 mg oral 8-08 tab, PO, l tablet 16:02: Bedtime, # Lilian nn 00 30 tab, 0 Refill(s) Aspirin Low Yes PO, Daily, Memoria Dose 81 mg 8-08 0 l oral tablet 16:02: Refill(s) H erm Atenolol 50 Yes 50 mg = 1 M emoria MG Oral 8-08 tab, l Tablet 16:02: Daily, 0 [place] 00 Refill(s) dipyridamol Yes 75 mg = 1 M emoria e 75 mg 8-08 tab, PO, l oral tablet 16:02: BID, 0 Herm karina 00 Refill(s) cilostazol Yes 100 mg = 1 M emoria 100 mg oral 8-08 tab, PO, l tablet 16:02: BID, 0 [place] 00 Refill(s) lisinopril Yes 10 mg = 1 Me moria 10 mg oral 808 tab, PO, l tablet 16:02: Bedtime, 0 Lilian nn 00 Refill(s) levothyroxi Yes Daily, 0 Me moria ne 50 mcg 808 Refill(s) l (0.05 mg) 16:02: Jesús oral tablet 00 Nitroglycer Yes 1 inch, Mem oria in 0.02 808 Daily, 0 l MG/MG 16:02: Refill(s) Jesús Topical 00 Ointment simvastatin Yes 10 mg = 1 M emoria 10 mg oral 8-08 tab, PO, l tablet 16:02: Bedtime, # Lilian nn 00 30 tab, 0 Refill(s) Aspirin Low 0 Yes PO, Daily, Memoria Dose 81 mg 8-08 0 l oral tablet 16:02: Refill(s) H ermann Atenolol 50 Yes 50 mg = 1 M emoria MG Oral 8-08 tab, l Tablet 16:02: Daily, 0 [place] 00 Refill(s) dipyridamol Yes 75 mg = [...] Bedtime, 0 Lilian nn 00 Refill(s) levothyroxi Yes Daily, 0 Me moria ne 50 mcg 8-08 Refill(s) l (0.05 mg) 16:02: [place] oral tablet 00 Nitroglycer Yes 1 inch, Mem oria in 0.02 8-08 Daily, 0 l MG/MG 16:02: Refill(s) [place] Topical 00 Ointment simvastatin Yes 10 mg = 1 M emoria 10 mg oral 8-08 tab, PO, l tablet 16:02: Bedtime, # Lilian nn 00 30 tab, 0 Refill(s) Aspirin Low Yes PO, Daily, Memoria Dose 81 mg 8-08 0 l oral tablet 16:02: Refill(s) H [...] Bedtime, 0 Lilian nn 00 Refill(s) levothyroxi 0 Yes Daily, 0 Me moria ne 50 mcg 8-08 Refill(s) l (0.05 mg) 16:02: [place] oral tablet 00 Nitroglycer Yes 1 inch, Mem oria in 0.02 8-08 Daily, 0 l MG/MG 16:02: Refill(s) Jesús Topical 00 Ointment simvastatin Yes 10 mg = 1 M emoria 10 mg oral 8-08 tab, PO, l tablet 16:02: Bedtime, # Lilian nn 00 30 tab, 0 Refill(s) Aspirin Low Yes PO, Daily, Memoria Dose 81 mg 8-08 0 l oral tablet 16:02: Refill(s) H ermann 00 Atenolol 50 Yes 50 mg = 1 M emoria MG Oral 8-08 tab, l Tablet 16:02: Daily, 0 [place] 00 Refill(s) dipyridamol Yes 75 mg = 1 M emoria e 75 mg 8-08 tab, PO, l oral tablet 16:02: BID, 0 Herm karina 00 Refill(s) cilostazol Yes 100 mg = 1 M emoria 100 mg oral 8-08 tab, PO, l tablet 16:02: BID, 0 Jesús 00 Refill(s) lisinopril Yes 10 mg = 1 Me moria 10 mg oral 808 tab, PO, l tablet 16:02: Bedtime, 0 Lilian nn 00 Refill(s) Cefuroxime No Notes: Memor ia 8-08 (Same As: l 15:00: Kefurox, Jesús 00 Zinacef) Cefuroxime No Notes: Memor ia 8-08 (Same As: l 15:00: Kefurox, Jesús 00 Zinacef) Cefuroxime No Notes: Memor ia 8-08 (Same As: l 15:00: Kefurox, [place] 00 Zinacef) Cefuroxime No Notes: Memor ia 8-08 (Same As: l 15:00: Kefurox, [place] 00 Zinacef) Cefuroxime No Notes: Memor ia 8-08 (Same As: l 15:00: Kefurox, [place] 00 Zinacef) Cefuroxime No Notes: Memor ia 8-08 (Same As: l 15:00: Kefurox, Jesús 00 Zinacef) predniSONE Yes Liana 20 mg, [...] Yes Liana 1-2, PO, Memoria mg oral 9-06 Ahmed Q4H, 50 l tablet 17:57: Badar tabJesús 09 Substituti on Allowed tramadol 50 Yes Liana 1-2, PO, Memoria mg oral 9-06 Ahmed Q4H, 50 l tablet 17:57: Badar tabJesús 09 Substituti on Allowed tramadol 50 Yes Liana 1-2, PO, Memoria mg oral 9-06 Ahmed Q4H, 50 l tablet 17:57: Badar tabJesús 09 Substituti on Allowed tramadol 50 Yes Liana 1-2, PO, Memoria mg oral 9-06 Ahmed Q4H, 50 l tablet 17:57: Badar tabJesús 09 Substituti on Allowed tramadol 50 Yes Liana 1-2, PO, Memoria mg oral 9-06 Ahmed Q4H, 50 l tablet 17:57: Badar tabJesús 09 Substituti on Allowed tramadol 50 Yes Liana 1-2, PO, Memoria mg oral 9-06 Ahmed Q4H, 50 l tablet 17:57: Badar tabJesús 09 Substituti on Allowed predniSONE No Liana [...] tab, PO, l 17:56: Badar Daily, 3 [place] 51 tab, Substituti on Allowed, Please Take 1 Tab for Three Days then 1/2 Tab for 3 days then stopPlease Take 1 Tab for Three Days then 1/2 Tab for 3 days then stop predniSONE No Liana 1 mg, 1 M emoria taper daily 03-02 Ahmed tab, PO, l 17:56: Badar Daily, 3 [place] 51 tab, Substituti on Allowed, Please Take [...] ipratropium Yes Liana 0.5 mg, Memoria 0.02% 9-06 Ahmed NEB, Q8H, l inhalation 17:56: Badar PRN, 25 Her mckee solution 31 ea, wheezing, Substituti on Allowed ipratropium Yes Liana 0.5 mg, Memoria 0.02% 906 Ahmed NEB, Q8H, l inhalation 17:56: Badar PRN, 25 Her [place] solution 31 ea, wheezing, Substituti on Allowed ipratropium Yes Liana 0.5 mg, Memoria 0.02% 03-02 Ahmed NEB, Q8H, l inhalation 17:56: Badar PRN, 25 Her [place] solution 31 ea, wheezing, Substituti on Allowed Xopenex Yes Liana 1.25, NEB, M emoria 1.25 mg/3 9-06 Ahmed Q8H, 2 l mL 17:53: Badar inhalation Kishore n inhalation 39 , solution Substituti on Allowed Xopenex Yes Liana 1.25, NEB, M emoria 1.25 mg/3 9-06 Ahmed Q8H, 2 l mL 17:53: Badar inhalation Kishore n inhalation 39 , solution Substituti on Allowed Xopenex Yes Liana 1.25, NEB, M emoria 1.25 mg/3 9-06 Ahmed Q8H, 2 l mL 17:53: Badar inhalation Kishore n inhalation 39 , solution Substituti on Allowed Xopenex Yes Liana 1.25, NEB, M emoria 1.25 mg/3 9-06 Ahmed Q8H, 2 l mL 17:53: Badar inhalation Kishore n inhalation 39 , solution Substituti on Allowed Xopenex Yes Liana 1.25, NEB, M emoria 1.25 mg/3 9-06 Ahmed Q8H, 2 l mL 17:53: Badar inhalation Kishore n inhalation 39 , solution Substituti on Allowed Xopenex Yes Liana 1.25, NEB, M emoria 1.25 mg/3 9-06 Ahmed Q8H, 2 l mL 17:53: Badar [...] (1/2 tab) daily, 12 tab, Substituti on [id number] day regimen: Days 1-4 - 40 mg [...] (1/2 tab) daily, 12 tab, Substituti on [id number] day regimen: Days 1-4 - 40 mg [...] (1/2 tab) daily, 12 tab, Substituti on [id number] day regimen: Days 1-4 - 40 mg [...] (1/2 tab) daily, 12 tab, Substituti on [id number] day regimen: Days 1-4 - 40 mg (2 tabs) daily Days 5-8 - 20 mg (1 tab) daily Days 9-12 - 10 mg (1/2 tab) daily predniSONE No See Memoria 20 mg oral - Special l tablet 17:06: Yoselin loving 12 ns, PO, Daily, 12 day regimen: Days 1-4 - 40 mg (2 tabs) daily Days 5-8 - 20 mg (1 tab) daily Days 9-12 - 10 mg (1/2 tab) daily, 12 tab, Substituti on [id number] day regimen: Days 1-4 - 40 mg (2 tabs) daily Days 5-8 - 20 mg (1 tab) daily Days 9-12 - 10 mg (1/2 tab) daily predniSONE No See Memoria 20 mg oral - Special l tablet 17:06: Yoselin Quintana nn 12 ns, PO, Daily, 12 day regimen: Days 1-4 - 40 mg (2 tabs) daily Days 5-8 - 20 mg (1 tab) daily Days 9-12 - 10 mg (1/2 tab) daily, 12 tab, Substituti on [id number] day regimen: Days 1-4 - 40 mg (2 tabs) daily Days 5-8 - 20 mg (1 tab) daily Days 9-12 - 10 mg (1/2 tab) daily potassium No Liana 20 mEq, 1 Memoria chloride 20 9-06 Ahmed tab, l mEq oral 14:00: Badar Route: PO, He rmann tablet, 00 Drug form: extended ERTAB, release Daily, Dosing Weight 65, kg, Start date: 03/02/13 9:00:00, Duration: 30 day, Stop date: 03/31/13 9:00:00 predniSONE No Liana 40 mg, 2 Memoria 9-06 Ahmed tab, l 14:00: Badar Route: PO, Kishore n 00 Drug form: TAB, Daily, Dosing Weight 65, kg, Start date: 03/02/13 9:00:00, Duration: 30 day, Stop date: 03/31/13 9:00:00 potassium 2012-0 No Liana 20 mEq, 1 Memoria chloride 20 9-06 Ahmed tab, l mEq oral 14:00: Badar Route: PO, He rmann tablet, 00 Drug form: extended ERTAB, release Daily, Dosing Weight 65, kg, Start date: 03/02/13 9:00:00, Duration: 30 day, Stop date: 03/31/13 9:00:00 predniSONE 2013-0 No Liana 40 mg, 2 Memoria 9-06 Ahmed tab, l 14:00: Badar Route: PO, Kishore n 00 Drug form: TAB, Daily, Dosing Weight 65, kg, Start date: 03/02/13 9:00:00, Duration: 30 day, Stop date: 03/31/13 9:00:00 potassium 2013-0 No Liana 20 mEq, 1 Memoria chloride 20 9-06 Ahmed tab, l mEq oral 14:00: Badar Route: PO, He rmann tablet, 00 Drug form: extended ERTAB, [...] Liana 20 mEq, 1 Memoria chloride 20 9-06 Ahmed tab, l mEq oral 14:00: Badar Route: PO, He rmann tablet, 00 Drug form: extended ERTAB, release Daily, Dosing Weight 65, kg, Start date: 03/02/13 9:00:00, Duration: 30 day, Stop date: 03/31/13 9:00:00 predniSONE 2013-0 No Liana 40 mg, 2 Memoria 9-06 Ahmed tab, l 14:00: Badar Route: PO, Kishore n 00 Drug form: TAB, Daily, Dosing Weight 65, kg, Start date: 03/02/13 9:00:00, Duration: 30 day, Stop date: 03/31/13 9:00:00 potassium 2013-0 No Liana 20 mEq, 1 Memoria chloride 20 9-06 Ahmed tab, l mEq oral 14:00: Badar Route: PO, He rmann tablet, 00 Drug form: extended ERTAB, [...] Liana 20 mEq, 1 Memoria chloride 20 9-06 Ahmed tab, l mEq oral 14:00: Badar Route: PO, Jonas rmann tablet, 00 Drug form: extended ERTAB, release Daily, Dosing Weight 65, kg, Start date: 03/02/13 9:00:00, Duration: 30 day, Stop date: 03/31/13 9:00:00 predniSONE 2012-0 No Liana 40 mg, 2 Memoria -06 Ahmed tab, l 14:00: Badar Route: PO, Kishore n 00 Drug form: TAB, Daily, Dosing Weight 65, kg, Start date: 03/02/13 9:00:00, Duration: 30 day, Stop date: 03/31/13 9:00:00 Lasix 2012-0 No Jeff 40 mg, 1 Memori a 9-05 Barbara tab, l 22:00: Jr Route: PO, Jesús 00 Drug form: TAB, BID, Start date: 03/01/13 17:00:00, Duration: 30 day, Stop date: 03/31/13 9:00:00 Lasix 2012-0 No Jeff 40 mg, 1 Memori a 9-05 Barbara tab, l 22:00: Jr Route: PO, [place] Drug form: TAB, BID, Start date: 03/01/13 17:00:00, Duration: 30 day, Stop date: 03/31/13 9:00:00 Lasix 2012-0 No Jeff 40 mg, 1 Memori a 9-05 Barbara tab, l 22:00: Jr Route: PO, [place] Drug form: TAB, BID, Start date: 03/01/13 17:00:00, Duration: 30 day, Stop date: 03/31/13 9:00:00 Lasix 2012-0 No Jeff 40 mg, 1 Memori a 9-05 Barbara tab, l 22:00: Jr Route: PO, Jesús 00 Drug form: TAB, BID, Start date: 03/01/13 17:00:00, Duration: 30 day, Stop date: 03/31/13 9:00:00 Lasix 2012-0 No Jeff 40 mg, 1 Memori a 9-05 Barbara tab, l 22:00: Jr Route: PO, Jesús 00 Drug form: TAB, BID, Start date: 03/01/13 17:00:00, Duration: 30 day, Stop date: 03/31/13 9:00:00 Lasix 2012-0 No Jeff 40 mg, 1 Memori a 9-05 Barbara tab, l 22:00: Jr Route: PO, [place] Drug form: TAB, BID, Start date: 03/01/13 17:00:00, Duration: 30 day, Stop date: 03/31/13 9:00:00 K-Dur 20 0 No Jeff 20 mEq, 1 Me moria 9-05 Barbara tab, l 17:04: Jr Route: PO, Jesús 00 Drug form: ERTAB, BID, Start date: 03/01/13 12:04:00, Duration: 30 day, Stop date: 03/31/13 9:00:00 K-Dur 20 2012-0 No Jeff 20 mEq, 1 Me moria 9-05 Barbara tab, l 17:04: Jr Route: PO, Jesús 00 Drug form: ERTAB, BID, Start date: 03/01/13 12:04:00, Duration: 30 day, Stop date: 03/31/13 9:00:00 K-Dur 20 2012-0 No Jeff 20 mEq, 1 Me moria 9-05 Barbara tab, l 17:04: Jr Route: PO, [place] 00 Drug form: ERTAB, BID, Start date: 03/01/13 12:04:00, Duration: 30 day, Stop date: 03/31/13 9:00:00 K-Dur 20 2012-0 No Jeff 20 mEq, 1 Me moria 9-05 Barbara tab, l 17:04: Jr Route: PO, Jesús 00 Drug form: ERTAB, BID, Start date: 03/01/13 12:04:00, Duration: 30 day, Stop date: 03/31/13 9:00:00 K-Dur 20 2012-0 No Jeff 20 mEq, 1 Me moria 9-05 Barbara tab, l 17:04: Jr Route: PO, Jesús 00 Drug form: ERTAB, BID, Start date: 03/01/13 12:04:00, Duration: 30 day, Stop date: 03/31/13 9:00:00 K-Dur 20 2012-0 No Ejff 20 mEq, 1 Me moria 9-05 Barbara tab, l 17:04: Jr Route: PO, [place] 00 Drug form: ERTAB, BID, Start date: 03/01/13 12:04:00, Duration: 30 day, Stop date: 03/31/13 9:00:00 Lopressor 2012-0 No Jeff 25 mg, 1 Me moria 9-05 Barbara tab, l 17:03: Jr Route: PO, Jesús 00 Drug form: TAB, Q12H, Start date: 03/01/13 12:03:00, Duration: 30 day, Stop date: 03/31/13 9:00:00 Lopressor 2012-0 No Jeff 25 mg, 1 Me moria 9-05 Barbara tab, l 17:03: Jr Route: PO, Jesús 00 Drug form: TAB, Q12H, Start date: 03/01/13 12:03:00, Duration: 30 day, Stop date: 03/31/13 9:00:00 Lopressor 2012-0 No Jeff 25 mg, 1 Me moria 9-05 Barbara tab, l 17:03: Jr Route: PO, [place] 00 Drug form: TAB, Q12H, Start date: 03/01/13 12:03:00, Duration: 30 day, Stop date: 03/31/13 9:00:00 Lopressor 2012-0 No Jeff 25 mg, 1 Me moria 9-05 Barbara tab, l 17:03: Jr Route: PO, [place] 00 Drug form: TAB, Q12H, Start date: 03/01/13 12:03:00, Duration: 30 day, Stop date: 03/31/13 9:00:00 Lopressor 2013-0 No Jeff 25 mg, 1 Me moria 9-05 Barbara tab, l 17:03: Jr Route: PO, [place] 00 Drug form: TAB, Q12H, Start date: 03/01/13 12:03:00, Duration: 30 day, Stop date: 03/31/13 9:00:00 Lopressor 2013-0 No Jeff 25 mg, 1 Me moria 9-05 Barbara tab, l 17:03: Jr Route: PO, [place] 00 Drug form: TAB, Q12H, Start date: 03/01/13 12:03:00, Duration: 30 day, Stop date: 03/31/13 9:00:00 potassium 2012-0 Yes Anna 20 mEq, 1 Memoria chloride 20 9-05 Kita tab, PO, l mEq oral 15:18: BID, 60 Kishore n tablet, 37 tab, 5, 5, extended Substituti release on Allowed potassium 2012-0 Yes Anna 20 mEq, 1 Memoria chloride 20 9-05 Kita tab, PO, l mEq oral 15:18: BID, 60 Kishore n tablet, 37 tab, 5, 5, extended Substituti release on Allowed potassium 2012-0 Yes Anna 20 mEq, 1 Memoria chloride 20 9-05 Kita tab, PO, l mEq oral 15:18: BID, 60 Kishore n tablet, 37 tab, 5, 5, extended Substituti release on Allowed potassium 2012-0 Yes Anna 20 mEq, 1 Memoria chloride 20 9-05 Kita tab, PO, l mEq oral 15:18: BID, 60 Kishore n tablet, 37 tab, 5, 5, extended Substituti release on Allowed potassium 2012-0 Yes Anna 20 mEq, 1 Memoria chloride 20 9-05 Kita tab, PO, l mEq oral 15:18: BID, 60 Kishore n tablet, 37 tab, 5, 5, extended Substituti release on Allowed potassium 2012-0 Yes Anna 20 mEq, 1 Memoria chloride 20 9-05 Kita tab, PO, l mEq oral 15:18: BID, 60 Kishore n tablet, 37 tab, 5, 5, extended Substituti release on Allowed aspirin 81 2013-0 Yes Anna 81 mg, 1 Memoria mg [...] Kita tab, PO, l 15:01: BID, 60 [place] 12 tab, 5, 5, Substituti on Allowed, TAB Lasix 40 mg Yes Anna 40 mg, 1 Memoria oral tablet 03-01 Kita tab, PO, l 15:01: BID, 60 [place] 12 tab, 5, 5, Substituti on Allowed, TAB Lasix 40 mg Yes Anna 40 mg, 1 Memoria oral tablet 03-01 Kita tab, PO, l 15:01: BID, 60 [place] 12 tab, 5, 5, Substituti on Allowed, TAB Lasix 40 mg Yes Anna 40 mg, 1 Memoria oral tablet 9-05 Kita tab, PO, l 15:01: BID, 60 Jesús 12 tab, 5, 5, Substituti on Allowed, TAB Lasix 40 mg Yes Anna 40 mg, 1 Memoria oral tablet 9-05 Kita tab, PO, l 15:01: BID, 60 [...] PO, l mg oral 15:00: BID, 60 [place] tablet 06 tab, 5, 5, Substituti on Allowed, TAB metoprolol Yes Anna 25 mg, 1 Memoria tartrate 25 9-05 Kita tab, PO, l mg oral 15:00: BID, 60 Jesús tablet 06 tab, 5, 5, Substituti on Allowed, TAB simvastatin Yes Anna 20 mg, 1 Memoria 20 mg oral 905 Kita tab, PO, l tablet 14:58: Bedtime, [place] 35 30 tab, 5, 5, Substituti on Allowed, TAB simvastatin 2013-0 Yes Anna 20 mg, 1 Memoria 20 [...] Kita tab, PO, l tablet 14:58: Bedtime, [place] 35 30 tab, 5, 5, Substituti on Allowed, TAB simvastatin Yes Anna 20 mg, 1 Memoria 20 mg oral 9-05 Kita tab, PO, l tablet 14:58: Bedtime, [place] 35 30 tab, 5, 5, Substituti on [...] 50 Mem oria ne 50 mcg 9-05 Kiat microgram, l (0.05 mg) 14:58: 1 tab, [...] tab, PO, l tablet 14:58: BID, 60 [place] 25 tab, 5, 5, Substituti on Allowed, TAB cilostazol 2013-0 Yes Anna 100 mg, 1 Memoria 100 mg oral 9-05 Kita tab, PO, l tablet 14:58: BID, 60 Jesús 25 tab, 5, 5, Substituti on Allowed, TAB cilostazol 2013-0 Yes Anna 100 mg, 1 Memoria 100 mg oral 9-05 Ktia tab, PO, l tablet 14:58: BID, 60 [place] 25 tab, 5, 5, Substituti on Allowed, TAB cilostazol 2013-0 Yes Anna 100 mg, 1 Memoria 100 mg oral 9-05 Kita tab, PO, l tablet 14:58: BID, 60 Jesús 25 tab, 5, 5, Substituti on Allowed, TAB cilostazol 2013-0 Yes Anna 100 mg, 1 Memoria 100 mg oral 9-05 Kita tab, PO, l tablet 14:58: BID, 60 [place] 25 tab, 5, 5, Substituti on Allowed, TAB cilostazol 2013-0 Yes Anna 100 mg, 1 Memoria 100 mg oral 9-05 Kita tab, PO, l tablet 14:58: BID, 60 [place] 25 tab, 5, 5, Substituti on Allowed, TAB amLODipine 2013-0 Yes Anna 5 mg, 1 M emoria 5 mg oral 9-05 Kita tab, PO, l tablet 14:57: Daily, 30 Kishore n 30 tab, 5, 5, Substituti on Allowed, TAB amLODipine 2013-0 Yes Anna 5 mg, 1 M emoria 5 mg oral 9-05 Kita tab, PO, l tablet 14:57: Daily, 30 Kishore n 30 tab, 5, 5, Substituti on Allowed, TAB amLODipine 2013-0 Yes Anna 5 mg, 1 M emoria 5 mg oral 9-05 Kita tab, PO, l tablet 14:57: Daily, 30 Kishore n 30 tab, 5, 5, Substituti on Allowed, TAB amLODipine 2013-0 Yes Anna 5 mg, 1 M emoria 5 mg oral 9-05 Kita tab, PO, l tablet 14:57: Daily, [...] predniSONE No Liana 30 mg, 3 Memoria 9-05 Ahmed tab, l 14:00: Badar Route: PO, Kishore n 00 Drug form: TAB, Daily, Dosing Weight 65, kg, Start date: 03/01/13 9:00:00, Duration: 30 day, Stop date: 03/30/13 9:00:00 predniSONE No Linaa 30 mg, 3 Memoria 9-05 Ahmed tab, l 14:00: Badar Route: PO, Kishore n 00 Drug form: TAB, Daily, Dosing Weight 65, kg, Start date: 03/01/13 9:00:00, Duration: 30 day, Stop date: 03/30/13 9:00:00 predniSONE 0 No Liana 30 mg, 3 Memoria 9-05 Ahmed tab, l 14:00: Badar Route: PO, Kishore n 00 Drug form: TAB, Daily, Dosing Weight 65, kg, Start date: 03/01/13 9:00:00, Duration: 30 day, Stop date: 03/30/13 9:00:00 predniSONE 0 No Liana 30 mg, 3 Memoria 9-05 Ahmed tab, l 14:00: Badar Route: PO, Kishore n 00 Drug form: TAB, Daily, Dosing Weight 65, kg, Start date: 03/01/13 9:00:00, Duration: 30 day, Stop date: 03/30/13 9:00:00 predniSONE 0 No Liana 30 mg, 3 Memoria 9-05 Ahmed tab, l 14:00: Badar Route: PO, Kishore n 00 Drug form: TAB, Daily, Dosing Weight 65, kg, Start date: 03/01/13 9:00:00, Duration: 30 day, Stop date: 03/30/13 9:00:00 predniSONE 2013-0 No Liana 30 mg, 3 Memoria 9-05 Ahmed tab, l 14:00: Badar Route: PO, Kishore n 00 Drug form: TAB, Daily, Dosing Weight 65, kg, Start date: 03/01/13 9:00:00, Duration: 30 day, Stop date: 03/30/13 9:00:00 simvastatin 2012-0 No Anna 20 mg, 1 Memoria 9-05 Kita tab, l 02:00: Route: PO, [place] 00 Drug form: TAB, Bedtime, Dosing Weight 65, kg, Start date: 02/28/13 21:00:00, Duration: 30 day, Stop date: 03/29/13 21:00:00 simvastatin 2012-0 No Anna 20 mg, 1 Memoria 9-05 Kita tab, l 02:00: Route: PO, Jesús 00 Drug form: TAB, Bedtime, Dosing Weight 65, kg, Start date: 02/28/13 21:00:00, Duration: 30 day, Stop date: 03/29/13 21:00:00 simvastatin 2012-0 No Anna 20 mg, 1 Memoria 9-05 Kita tab, l 02:00: Route: PO, [place] 00 Drug form: TAB, Bedtime, Dosing Weight 65, kg, Start date: 02/28/13 21:00:00, Duration: 30 day, Stop date: 03/29/13 21:00:00 simvastatin 2012-0 No Anna 20 mg, 1 Memoria 9-05 Kita tab, l 02:00: Route: PO, [place] 00 Drug form: TAB, Bedtime, Dosing Weight 65, kg, Start date: 02/28/13 21:00:00, Duration: 30 day, Stop date: 03/29/13 21:00:00 simvastatin 2012-0 No Anna 20 mg, 1 Memoria 9-05 Kita tab, l 02:00: Route: PO, Jesús 00 Drug form: TAB, Bedtime, Dosing Weight 65, kg, Start date: 02/28/13 21:00:00, Duration: 30 day, Stop date: 03/29/13 21:00:00 simvastatin 2012-0 No Anna 20 mg, 1 Memoria 9-05 Kita tab, l 02:00: Route: PO, Jesús 00 Drug form: TAB, Bedtime, Dosing Weight 65, kg, Start date: 02/28/13 21:00:00, Duration: 30 day, Stop date: 03/29/13 21:00:00 Pletal 2012-0 No Ike 100 mg, 1 Mem oria 9-04 Danny tab, l 22:00: Silverio Route: PO, He rmann 00 Drug form: TAB, BID, Start date: 02/28/13 17:00:00, Duration: 30 day, Stop date: 03/30/13 9:00:00 Pletal 2012-0 No Ike 100 mg, 1 Mem oria 9-04 Danny tab, l 22:00: Silverio Route: PO, He rmann 00 Drug form: TAB, BID, Start date: 02/28/13 17:00:00, Duration: 30 day, Stop date: 03/30/13 9:00:00 Pletal 2012-0 No Ike 100 mg, 1 Mem oria 9-04 Danny tab, l 22:00: Silverio Route: PO, He rmann 00 Drug form: TAB, BID, Start date: 02/28/13 17:00:00, Duration: 30 day, Stop date: 03/30/13 9:00:00 Pletal 2012-0 No Ike 100 mg, 1 Mem oria 9-04 Danny tab, l 22:00: Silverio Route: PO, He rmann 00 Drug form: TAB, BID, Start date: 02/28/13 17:00:00, Duration: 30 day, Stop date: 03/30/13 9:00:00 Pletal 2012-0 No Ike 100 mg, 1 Mem oria 9-04 Danny tab, l 22:00: Silverio Route: PO, He rmann 00 Drug form: TAB, BID, Start date: 02/28/13 17:00:00, Duration: 30 day, Stop date: 03/30/13 9:00:00 Pletal 2012-0 No Ike 100 mg, 1 Mem oria 9-04 Danny tab, l 22:00: Silverio Route: PO, He rmann 00 Drug form: TAB, BID, Start date: 02/28/13 17:00:00, Duration: 30 day, Stop date: 03/30/13 9:00:00 insulin 2012-0 No Franky 6 unit, Memor ia aspart 02-28 0.06 mL, l 18:36: Route: [place] 00 SUB-Q, Drug form: SOLN, TID-Before Meals, Dosing Weight 65, kg, PRN Blood Glucose Results, Start date: 02/28/13 13:36:00, Duration: 30 day, Stop date: 03/30/13 13:35:00 Dextrose 2012-0 No Franky 12.5 gm, Mem oria 50% Syringe 02-28s 25 mL, l 18:36: Route: [place] 00 IVP, Drug Form: INJ, Dosing Weight 65, [...] No Franky 6 unit, Memor ia aspart 02-28 0.06 mL, l 18:36: Route: [place] 00 SUB-Q, Drug form: SOLN, TID-Before Meals, Dosing Weight 65, kg, PRN Blood Glucose Results, Start date: 02/28/13 13:36:00, Duration: 30 day, Stop date: 03/30/13 13:35:00 Dextrose 2012-0 No Franky 12.5 gm, Mem oria 50% Syringe 02-28s 25 mL, l 18:36: Route: [place] 00 IVP, Drug Form: INJ, Dosing Weight 65, kg, PRN, PRN Blood Glucose Results, Start date: 02/28/13 13:36:00, Duration: 30 day, Stop date: 03/30/13 13:35:00 glucagon 2013-0 No Franky 1 mg, Memori a 9-04 [place]ño Route: IM, l 18:36: Drug form: [place] 00 PDR/INJ, PRN, Dosing Weight 65, kg, PRN Blood Glucose Results, Start date: 02/28/13 13:36:00, Duration: 30 day, Stop date: 03/30/13 13:35:00 insulin 2012-0 No Franky 6 unit, Memor ia aspart 02-28s 0.06 mL, l 18:36: Route: [place] 00 SUB-Q, Drug form: SOLN, TID-Before Meals, Dosing Weight 65, kg, PRN Blood Glucose Results, Start date: 02/28/13 13:36:00, Duration: 30 day, Stop date: 03/30/13 13:35:00 Dextrose 2012-0 No Franky 12.5 gm, Mem oria 50% Syringe 02-28s 25 mL, l 18:36: Route: [place] 00 IVP, Drug Form: INJ, Dosing Weight 65, kg, PRN, PRN Blood Glucose Results, Start date: 02/28/13 13:36:00, Duration: 30 day, Stop date: 03/30/13 13:35:00 glucagon 2012-0 No Franky 1 mg, Memori a 02-28 Route: IM, l 18:36: Drug form: [place] 00 PDR/INJ, PRN, Dosing Weight 65, kg, PRN Blood Glucose Results, Start date: 02/28/13 13:36:00, Duration: 30 day, Stop date: 03/30/13 13:35:00 insulin 2012-0 No Franky 6 unit, Memor ia aspart 02-28s 0.06 mL, l 18:36: Route: [place] 00 SUB-Q, Drug form: SOLN, TID-Before Meals, Dosing Weight 65, kg, PRN Blood Glucose Results, Start date: 02/28/13 13:36:00, Duration: 30 day, Stop date: 03/30/13 13:35:00 Dextrose 2012-0 No Franky 12.5 gm, Mem oria 50% Syringe 02-28s 25 mL, l 18:36: Route: [place] 00 IVP, Drug Form: INJ, Dosing Weight 65, [...] No Franky 6 unit, Memor ia aspart 02-28 0.06 mL, l 18:36: Route: Jesús 00 SUB-Q, Drug form: SOLN, TID-Before Meals, Dosing Weight 65, kg, PRN Blood Glucose Results, Start date: 02/28/13 13:36:00, Duration: 30 day, Stop date: 03/30/13 13:35:00 Dextrose 2012-0 No Franky 12.5 gm, Mem oria 50% Syringe 02-28s 25 mL, l 18:36: Route: [place] 00 IVP, Drug Form: INJ, Dosing Weight 65, kg, PRN, PRN Blood Glucose Results, Start date: 02/28/13 13:36:00, Duration: 30 day, Stop date: 03/30/13 13:35:00 glucagon 2012-0 No Franky 1 mg, Memori a 02-28 Route: IM, l 18:36: Drug form: [place] 00 PDR/INJ, PRN, Dosing Weight 65, kg, PRN Blood Glucose Results, Start date: 02/28/13 13:36:00, Duration: 30 day, Stop date: 03/30/13 13:35:00 insulin 2012-0 No Franky 6 unit, Memor ia aspart 02-28 0.06 mL, l 18:36: Route: Jesús 00 SUB-Q, Drug form: SOLN, TID-Before Meals, Dosing Weight 65, kg, PRN Blood Glucose Results, Start date: 02/28/13 13:36:00, Duration: 30 day, Stop date: 03/30/13 13:35:00 Dextrose 2012-0 No Frakny 12.5 gm, Mem oria 50% Syringe 02-28s 25 mL, l 18:36: Route: [place] 00 IVP, Drug Form: INJ, Dosing Weight 65, kg, PRN, PRN Blood Glucose Results, Start date: 02/28/13 13:36:00, Duration: 30 day, Stop date: 03/30/13 13:35:00 glucagon 2012- No Franky 1 mg, Memori a 02-28 Route: IM, l 18:36: Drug form: [place] 00 PDR/INJ, PRN, Dosing Weight 65, kg, PRN Blood Glucose Results, Start date: 02/28/13 13:36:00, Duration: 30 day, Stop date: 03/30/13 13:35:00 K-Dur 20 No Ike 40 mEq, 2 M emoria 9-04 Danny tab, l 18:00: Silverio Route: PO, He rmann 00 Drug form: ERTAB, ONCE, Start date: 02/28/13 13:00:00, Stop date: 02/28/13 13:00:00 K-Dur 20 No Ike 40 mEq, 2 M emoria -04 Danny tab, l 18:00: Silverio Route: PO, He rmann 00 Drug form: ERTAB, ONCE, Start date: 02/28/13 13:00:00, Stop date: 02/28/13 13:00:00 K-Dur 20 0 No Ike 40 mEq, 2 M emoria 9-04 Danny tab, l 18:00: Silverio Route: PO, He rmann 00 Drug form: ERTAB, ONCE, Start date: 02/28/13 13:00:00, Stop date: 02/28/13 13:00:00 K-Dur 20 0 No Ike 40 mEq, 2 M emoria 9-04 Danny tab, l 18:00: Silverio Route: PO, He rmann 00 Drug form: ERTAB, ONCE, Start date: 02/28/13 13:00:00, Stop date: 02/28/13 13:00:00 K-Dur 20 0 No Ike 40 mEq, 2 M emoria 9-04 Danny tab, l 18:00: Silverio Route: PO, He rmann 00 Drug form: ERTAB, ONCE, Start date: 02/28/13 13:00:00, Stop date: 02/28/13 13:00:00 K-Dur 20 2012-0 No Ike 40 mEq, 2 M emoria 9-04 Danny tab, l 18:00: Silverio Route: PO, iris Drug form: ERTAB, ONCE, Start date: 02/28/13 13:00:00, Stop date: 02/28/13 13:00:00 potassium 2012-0 No Liana 40 mEq, 2 Memoria chloride 9-04 Ahmed pkt, l 16:00: Badar Route: PO, Kishore n Drug form: PDR/REC, ONCE, Dosing Weight 65, kg, Start date: 02/28/13 11:00:00, Stop date: 02/28/13 11:00:00 potassium 2012-0 No Liana 40 mEq, 2 Memoria chloride 9-04 Ahmed pkt, l 16:00: Badar Route: PO, Kishore n Drug form: PDR/REC, ONCE, Dosing Weight 65, kg, Start date: 02/28/13 11:00:00, Stop date: 02/28/13 11:00:00 potassium 2012-0 No Liana 40 mEq, 2 Memoria chloride 9-04 Ahmed pkt, l 16:00: Badar Route: PO, Kishore n Drug form: PDR/REC, ONCE, Dosing Weight 65, [...] 02/28/13 11:00:00, Stop date: 02/28/13 11:00:00 SoluMedrol 2013-0 No Liana 60 mg, Me moria 9-04 Ahmed 0.96 mL, l 02:00: Badar Route: Jesús IVP, Drug form: INJ, Q12H, Dosing Weight 65, kg, Start date: 02/27/13 21:00:00, Duration: 30 day, Stop date: 03/29/13 9:00:00 SoluMedrol 2013-0 No Liana 60 mg, Me moria 9-04 Ahmed 0.96 mL, l 02:00: Badar Route: [place] 00 IVP, Drug form: INJ, Q12H, Dosing Weight 65, kg, Start date: 02/27/13 21:00:00, Duration: 30 day, Stop date: 03/29/13 9:00:00 SoluMedrol 2013-0 No Liana 60 mg, Me moria 9-04 Ahmed 0.96 mL, l 02:00: Badar Route: Jesús 00 IVP, Drug form: INJ, Q12H, Dosing Weight 65, kg, Start date: 02/27/13 21:00:00, Duration: 30 day, Stop date: 03/29/13 9:00:00 SoluMedrol 2013-0 No Liana 60 mg, Me moria 9-04 Ahmed 0.96 mL, l 02:00: Badar Route: [place] 00 IVP, Drug form: INJ, Q12H, Dosing Weight 65, kg, Start date: 02/27/13 21:00:00, Duration: 30 day, Stop date: 03/29/13 9:00:00 SoluMedrol 2013-0 No Liana 60 mg, Me moria 9-04 Ahmed 0.96 mL, l 02:00: Badar Route: [place] 00 IVP, Drug form: INJ, Q12H, Dosing Weight 65, kg, Start date: 02/27/13 21:00:00, Duration: 30 day, Stop date: 03/29/13 9:00:00 SoluMedrol 2012-0 No Liana 60 mg, Me moria 9-04 Ahmed 0.96 mL, l 02:00: Badar Route: [place] 00 IVP, Drug form: INJ, Q12H, Dosing [...] mL, Route: l 01:00: Matthews IV, Drug [place] 00 form: INJ, BID, Start date: 02/27/13 [...] Route: l 01:00: Matthews IV, Drug Jesús 00 form: INJ, BID, Start date: 02/27/13 [...] Route: l 01:00: Matthews IV, Drug Jesús 00 form: INJ, BID, Start date: 02/27/13 [...] Route: l 01:00: Matthews IV, Drug Jesús 00 form: INJ, BID, Start date: 02/27/13 [...] mL, Route: l 01:00: Matthews IV, Drug [place] 00 form: INJ, BID, Start date: 02/27/13 20:00:00, Duration: 30 day, Stop date: 03/29/13 17:00:00 Lasix 2012-0 No Liana 40 mg, 4 Memor ia 9-03 Ahmed mL, Route: l 14:22: Badar IV, Drug [place] 00 form: INJ, QAM, Start date: 02/27/13 9:22:00, Duration: 30 day, Stop date: 03/29/13 9:00:00 Lasix 2012-0 No Liana 40 mg, 4 Memor ia -03 Ahmed mL, Route: l 14:22: Badar IV, Drug [place] 00 form: INJ, QAM, Start date: 02/27/13 9:22:00, Duration: 30 day, Stop date: 03/29/13 9:00:00 Lasix 2012-0 No Liana 40 mg, 4 Memor ia - Ahmed mL, Route: l 14:22: Badar IV, Drug [place] 00 form: INJ, QAM, Start date: 02/27/13 9:22:00, Duration: 30 day, Stop date: 03/29/13 9:00:00 Lasix 2012-0 No Liana 40 mg, 4 Memor ia - Ahmed mL, Route: l 14:22: Badar IV, Drug Jesús 00 form: INJ, QAM, Start date: 02/27/13 9:22:00, Duration: 30 day, Stop date: 03/29/13 9:00:00 Lasix 2012-0 No Liana 40 mg, 4 Memor ia -03 Ahmed mL, Route: l 14:22: Badar IV, Drug Jesús 00 form: INJ, QAM, Start date: 02/27/13 9:22:00, Duration: 30 day, Stop date: 03/29/13 9:00:00 Lasix 2012-0 No Liana 40 mg, 4 Memor ia -03 Ahmed mL, Route: l 14:22: Badar IV, Drug Jesús 00 form: INJ, QAM, Start date: 02/27/13 9:22:00, Duration: 30 day, Stop date: 03/29/13 9:00:00 glucagon 2012-0 No Franky 1 mg, Memori a 02-27 [...] 30 day, Stop date: 03/29/13 0:19:00 Dextrose No Franky 50 mL, Memor ia 50% in 02-27 Route: l Water IV 05:20: IVP, Start Her mckee date: 02/27/13 0:20:00, Duration: 30 day, Stop [...] 30 day, Stop date: 03/29/13 0:19:00 Dextrose No Franky 50 mL, Memor ia 50% in 02-27 Route: l Water IV 05:20: IVP, Start Her mckee date: 02/27/13 0:20:00, Duration: 30 day, Stop date: 03/29/13 0:19:00, PRN Blood Glucose Results glucagon No Franky 1 mg, Memori a 02-27 Route: l 05:20: INJ, Drug [place] 00 form: PDR/INJ, PRN, PRN Blood Glucose Results, Start date: 02/27/13 0:20:00, Duration: 30 day, Stop date: 03/29/13 0:19:00 NovoLog No Franky 14 unit, Hossein diana FlexPen 02-27 0.14 mL, l 05:20: Route: [place] 00 SUB-Q, Drug form: SOLN, Sliding Scale, PRN Blood Glucose Results, Start date: 02/27/13 0:20:00, Duration: 30 day, Stop date: 03/29/13 0:19:00 Dextrose No Franky 50 mL, Memor ia 50% in 02-27 Route: l Water IV 05:20: IVP, Start Her mckee 00 date: 02/27/13 0:20:00, Duration: 30 day, Stop date: 03/29/13 0:19:00, PRN Blood Glucose Results glucagon No Franky 1 mg, Memori a 02-27 Route: l 05:20: INJ, Drug [place] 00 form: PDR/INJ, PRN, PRN Blood Glucose Results, Start date: 02/27/13 0:20:00, Duration: 30 day, Stop date: 03/29/13 0:19:00 NovoLog No Franky 14 unit, Hossein diana FlexPen 02-27 0.14 mL, l 05:20: Route: [place] 00 SUB-Q, Drug form: SOLN, Sliding Scale, PRN Blood Glucose Results, Start date: 02/27/13 0:20:00, Duration: 30 day, Stop date: 03/29/13 0:19:00 Dextrose No Franky 50 mL, Memor ia 50% [...] 30 day, Stop date: 03/29/13 0:19:00 NovoLog 0 No Franky 14 unit, Hossein diana FlexPen 02-27 0.14 mL, l 05:20: Route: [place] 00 SUB-Q, Drug form: SOLN, Sliding Scale, PRN Blood Glucose Results, Start date: 02/27/13 0:20:00, Duration: 30 day, Stop date: 03/29/13 0:19:00 Dextrose No Franky 50 mL, Memor ia 50% [...] FlexPen 02-27 0.14 mL, l 05:20: Route: [place] 00 SUB-Q, Drug form: SOLN, Sliding Scale, PRN Blood Glucose Results, Start date: 02/27/13 0:20:00, Duration: 30 day, Stop date: 03/29/13 0:19:00 Dextrose No Franky 50 mL, Memor ia 50% [...] 30 day, Stop date: 03/28/13 18:59:00 Trandate 0 No Ike 20 mg, 4 Me moria 9- Danny mL, Route: l 00:00: Silverio IV, Drug Herm karina 00 form: INJ, Q6H, PRN See Nurse's Notes, Start date: 02/26/13 19:00:00, Duration: 30 day, Stop date: 03/28/13 18:59:00 Trandate 2013-0 No Ike 20 mg, 4 Me moria - Danny mL, Route: l 00:00: Silverio IV, Drug Herm karina 00 form: INJ, Q6H, PRN See Nurse's Notes, Start date: 02/26/13 19:00:00, Duration: 30 day, Stop date: 03/28/13 18:59:00 Trandate 2013-0 No Ike 20 mg, 4 Me franklina - Danny mL, Route: l 00:00: Silverio IV, Drug Herm karina 00 form: INJ, Q6H, PRN See Nurse's Notes, Start date: 02/26/13 19:00:00, Duration: 30 day, Stop date: 03/28/13 18:59:00 Trandate 2013-0 No Ike 20 mg, 4 Me franklina - Danny mL, Route: l 00:00: Silverio IV, Drug Herm karina 00 form: INJ, Q6H, PRN See Nurse's Notes, Start date: 02/26/13 19:00:00, Duration: 30 day, Stop date: 03/28/13 18:59:00 Protonix 2012-0 No Ike 40 mg, 1 moria - Danny tab, l 23:00: Silverio Route: PO, Jonas rmann 00 Drug form: ECTAB, Before Dinner, Start date: 02/26/13 18:00:00, Duration: 30 day, Stop date: 03/28/13 16:30:00 Protonix 2013-0 No Ike 40 mg, 1 Me moria - Dnany tab, l 23:00: Silverio Route: PO, He rmann 00 Drug form: ECTAB, Before Dinner, Start date: 02/26/13 18:00:00, Duration: 30 day, Stop date: 03/28/13 16:30:00 Protonix 2012-0 No Ike 40 mg, 1 Me moria 9-02 Danny tab, l 23:00: Silverio Route: PO, He rmann 00 Drug form: ECTAB, Before Dinner, Start date: 02/26/13 18:00:00, Duration: 30 day, Stop date: 03/28/13 16:30:00 Protonix 2013-0 No Ike 40 mg, 1 Me ulloa 9-02 Danny tab, l 23:00: Silverio Route: PO, He rmann 00 Drug form: ECTAB, Before Dinner, Start date: 02/26/13 18:00:00, Duration: 30 day, Stop date: 03/28/13 16:30:00 Protonix 2013-0 No Ike 40 mg, 1 Me ulloa 9- Danny tab, l 23:00: Silverio Route: PO, He rmann 00 Drug form: ECTAB, Before Dinner, Start date: 02/26/13 18:00:00, Duration: 30 day, Stop date: 03/28/13 16:30:00 Protonix 2012-0 No Ike 40 mg, 1 Me ulloa - Danny tab, l 23:00: Silverio Route: PO, He rmann 00 Drug form: ECTAB, Before Dinner, Start date: 02/26/13 18:00:00, Duration: 30 day, Stop date: 03/28/13 16:30:00 Trandate 2012-0 No Silvio L 10 mg, 2 Mem oria - Mangin Jr mL, Route: l 22:49: IV, Drug [place] 00 form: INJ, Q6H, PRN See Nurse's Notes, Start date: 02/26/13 17:49:00, Duration: 30 day, Stop date: 03/28/13 17:48:00 Trandate 2013-0 No Silvio L 10 mg, 2 Mem oria -02 Mangin Jr mL, Route: l 22:49: IV, Drug Jesús 00 form: INJ, Q6H, PRN See Nurse's Notes, Start date: 02/26/13 17:49:00, Duration: 30 day, Stop date: 03/28/13 17:48:00 Trandate 2013-0 No Silvio L 10 mg, 2 Mem oria -02 Mangin Jr mL, Route: l 22:49: IV, Drug Jesús 00 form: INJ, Q6H, PRN See Nurse's Notes, Start date: 02/26/13 17:49:00, Duration: 30 day, Stop date: 03/28/13 17:48:00 Trandate 2012-0 No Silvio L 10 mg, 2 Mem oria - Mangin Jr mL, Route: l 22:49: IV, Drug [place] 00 form: INJ, Q6H, PRN See Nurse's Notes, Start date: 02/26/13 17:49:00, Duration: 30 day, Stop date: 03/28/13 17:48:00 Trandate 2012-0 No Silvio L 10 mg, 2 Mem oria - Mangin Jr mL, Route: l 22:49: IV, Drug [place] 00 form: INJ, Q6H, PRN See Nurse's Notes, Start date: 02/26/13 17:49:00, Duration: 30 day, Stop date: 03/28/13 17:48:00 Trandate 2012-0 No Silvio L 10 mg, 2 Mem oria - Mangin Jr mL, Route: l 22:49: IV, Drug [place] 00 form: INJ, Q6H, PRN See Nurse's Notes, Start date: 02/26/13 17:49:00, Duration: 30 day, Stop date: 03/28/13 17:48:00 Trandate 2012-0 No Ike 20 mg, 4 Me moria 9-02 Danny mL, Route: l 18:01: Silverio IV, Drug Herm karina 00 form: INJ, ONCE, Start date: 02/26/13 13:01:00, Stop date: 02/26/13 13:01:00 Trandate 2012-0 No Ike 20 mg, 4 Me moria 9-02 Danny mL, Route: l 18:01: Silverio IV, Drug Herm karina 00 form: INJ, ONCE, Start date: 02/26/13 13:01:00, Stop date: 02/26/13 13:01:00 Trandate 2012-0 No Ike 20 mg, 4 Me moria 9-02 Danny mL, Route: l 18:01: Silverio IV, Drug Herm karina 00 form: INJ, ONCE, Start date: 02/26/13 13:01:00, Stop date: 02/26/13 13:01:00 Trandate 2013-0 No Ike 20 mg, 4 Me moria 9-02 Danny mL, Route: l 18:01: Silverio IV, Drug Herm karina 00 form: INJ, ONCE, Start date: 02/26/13 13:01:00, Stop date: 02/26/13 13:01:00 Trandate 2013-0 No Ike 20 mg, 4 Me moria - Danny mL, Route: l 18:01: Silverio IV, Drug Herm karina 00 form: INJ, ONCE, Start date: 02/26/13 13:01:00, Stop date: 02/26/13 13:01:00 Trandate 2013-0 No Ike 20 mg, 4 Me rigobertoa - Danny mL, Route: l 18:01: Silverio IV, Drug Herm karina 00 form: INJ, ONCE, Start date: 02/26/13 13:01:00, Stop date: 02/26/13 13:01:00 Xanax 2013-0 No Ck 0.5 mg, 1 Memor ia -02 Dylon tab, l 18:00: Xie Route: NG, Herm karina 00 Drug form: TAB, Q12H, Start date: 02/26/13 13:00:00, Duration: 4 doses or times, Stop date: 02/27/13 21:00:00 Xanax 2013-0 No Ck 0.5 mg, 1 Memor ia -02 Dylon tab, l 18:00: Xie Route: NG, Herm karina 00 Drug form: TAB, Q12H, Start date: 02/26/13 13:00:00, Duration: 4 doses or times, Stop date: 02/27/13 21:00:00 Xanax 2013-0 No Ck 0.5 mg, 1 Memor ia 9-02 Dylon tab, l 18:00: Xie Route: NG, Herm karina 00 Drug form: TAB, Q12H, Start date: 02/26/13 13:00:00, Duration: 4 doses or times, Stop date: 02/27/13 21:00:00 Xanax 2013-0 No Ck 0.5 mg, 1 Memor ia 9-02 Dylon tab, l 18:00: Xie Route: NG, Herm karina 00 Drug form: TAB, Q12H, Start date: 02/26/13 13:00:00, Duration: 4 doses or times, Stop date: 02/27/13 21:00:00 Xanax 2013-0 No Ck 0.5 mg, 1 Memor ia 02-26 Dylon tab, l 18:00: Xie Route: NG, Herm karina 00 Drug form: TAB, Q12H, Start date: 02/26/13 13:00:00, Duration: 4 doses or times, Stop date: 02/27/13 21:00:00 Xanax 2013-0 No Ck 0.5 mg, 1 Memor ia 02-26 Dylon tab, l 18:00: Xie Route: NG, Herm karina 00 Drug form: TAB, Q12H, Start date: 02/26/13 13:00:00, Duration: 4 doses or times, Stop date: 02/27/13 21:00:00 GoLYTELY 2013-0 No Nadim Carlos A 4,000 ml, Memoria 02-26 Shoaib Route: PO, l 14:19: Drug Form: Jesús PDR/REC, Dosing Weight 65, kg, ONCE, Start date: 02/26/13 9:19:00, Duration: 1 doses or times, Stop date: 02/26/13 9:19:00 GoLYTELY 2013-0 No Nadim Carlos A 4,000 ml, Memoria - Shoaib Route: PO, l 14:19: Drug Form: Jesús PDR/REC, Dosing Weight 65, kg, ONCE, Start date: 02/26/13 9:19:00, Duration: 1 doses or times, Stop date: 02/26/13 9:19:00 GoLYTELY 2012-0 No Nadim Carlos A 4,000 ml, Memoria - Shoaib Route: PO, l 14:19: Drug Form: Jesús PDR/REC, Dosing Weight 65, kg, ONCE, Start date: 02/26/13 9:19:00, Duration: 1 doses or times, Stop date: 02/26/13 9:19:00 GoLYTELY 2012-0 No Nadim Carlos A 4,000 ml, Memoria - Shoaib Route: PO, l 14:19: Drug Form: [place] PDR/REC, Dosing Weight 65, kg, ONCE, Start date: 02/26/13 9:19:00, Duration: 1 doses or times, Stop date: 02/26/13 9:19:00 GoLYTELY 2013-0 No Nadim Carlos A 4,000 ml, Memoria 02-26 Shoaib Route: PO, l 14:19: Drug Form: [place] 00 PDR/REC, Dosing Weight 65, kg, ONCE, Start date: 02/26/13 9:19:00, Duration: 1 doses or times, Stop date: 02/26/13 9:19:00 GoLYTELY 2012-0 No Nadim Carlos A 4,000 ml, Memoria 02-26 Shoaib Route: PO, l 14:19: Drug Form: [place] 00 PDR/REC, Dosing Weight 65, kg, ONCE, Start date: 02/26/13 9:19:00, Duration: 1 doses or times, Stop date: 02/26/13 9:19:00 Fosamax 2013-0 No Ike 10 mg, 1 Mem oria 9-02 Danny tab, l 11:30: Silverio Route: PO, He rmann 00 Drug form: TAB, Q630AM, Start date: 02/26/13 6:30:00, Duration: 30 day, Stop date: 03/27/13 6:30:00 Fosamax 2013-0 No Ike 10 mg, 1 Mem oria 9-02 Danny tab, l 11:30: Silverio Route: PO, rm Drug form: TAB, [id number], Start date: 02/26/13 6:30:00, Duration: 30 day, Stop date: 03/27/13 6:30:00 Fosamax 2013-0 No Ike 10 mg, 1 Mem oria 9-02 Dnany tab, l 11:30: Silverio Route: PO, He rmann 00 Drug form: TAB, [id number], Start date: 02/26/13 6:30:00, Duration: 30 day, Stop date: 03/27/13 6:30:00 Fosamax 2013-0 No Ike 10 mg, 1 Mem oria 9-02 Danny tab, l 11:30: Silverio Route: PO, He rmann 00 Drug form: TAB, [id number], Start date: 02/26/13 6:30:00, Duration: 30 day, Stop date: 03/27/13 6:30:00 Fosamax 2012-0 No Ike 10 mg, 1 Mem oria 02-26 Danny tab, l 11:30: Silverio Route: PO, rm Drug form: TAB, [id number], Start date: 02/26/13 6:30:00, Duration: 30 day, Stop date: 03/27/13 6:30:00 Fosamax 2012-0 No Ike 10 mg, 1 Mem oria 02-26 Danny tab, l 11:30: Silverio Route: PO, Drug form: TAB, [id number], Start date: 02/26/13 6:30:00, Duration: 30 day, Stop date: 03/27/13 6:30:00 Insulin 2012-0 No Nancy-Ye 99 mL, Memor ia regular 100 02-26 Irlanda Sameer Rate: l unit + 04:27: titrate, Jesús Sodium 00 Route: IV, Chloride Dosing 0.9% IV 99 Weight 65 mL kg, Total Volume: 100, Start date: 02/25/13 23:27:00, Duration: 30 day, Stop date: 03/27/13 23:26:00 Insulin 2012-0 No Nancy-Ye 99 mL, Memor ia regular 100 02-26 Irlanda Sameer Rate: l unit + 04:27: titrate, [place] Sodium 00 Route: IV, Chloride Dosing 0.9% IV 99 Weight 65 mL kg, Total Volume: 100, Start date: 02/25/13 23:27:00, Duration: 30 day, Stop date: 03/27/13 23:26:00 Insulin 2012-0 No Nancy-Ye 99 mL, Memor ia regular 100 02-26 Irlanda Sameer Rate: l unit + 04:27: titrate, Jesús Sodium 00 Route: IV, Chloride Dosing 0.9% IV 99 Weight 65 mL kg, Total Volume: 100, Start date: 02/25/13 23:27:00, Duration: 30 day, Stop date: 03/27/13 23:26:00 Insulin 2012-0 No Nancy-Ye 99 mL, Memor ia regular 100 9-02 Irlanda Sameer Rate: l unit + 04:27: titrate, [place] Sodium 00 Route: IV, Chloride Dosing 0.9% IV 99 Weight 65 mL kg, Total Volume: 100, Start date: 02/25/13 23:27:00, Duration: 30 day, Stop date: 03/27/13 23:26:00 Insulin 2013-0 No Nancy-Ye 99 mL, Memor ia regular 100 9-02 Iralnda Sameer Rate: l unit + 04:27: titrate, [place] Sodium 00 Route: IV, Chloride Dosing 0.9% IV 99 Weight 65 mL kg, Total Volume: 100, Start date: 02/25/13 23:27:00, Duration: 30 day, Stop date: 03/27/13 23:26:00 Insulin 2012-0 No Nanyc-Ye 99 mL, Memor ia regular 100 9- Irlanda Sameer Rate: l unit + 04:27: titrate, [place] Sodium 00 Route: IV, Chloride Dosing 0.9% IV 99 Weight 65 mL kg, Total Volume: 100, Start date: 02/25/13 23:27:00, Duration: 30 day, Stop date: 03/27/13 23:26:00 calcium 2012-0 No Ike 1,000 mg, Me moria gluconate + 9-02 Danny 10 mL, l Dextrose 5% 03:30: Silverio Route: IV, [place] in Water IV 00 Drug form: 100 mL INJ, ONCE, Start date: 02/25/13 22:30:00, Stop date: 02/25/13 22:30:00 calcium 2012-0 No Ike 1,000 mg, Me moria gluconate + 9-02 Danny 10 mL, l Dextrose 5% 03:30: Silverio Route: IV, [place] in Water IV 00 Drug form: 100 mL INJ, ONCE, Start date: 02/25/13 22:30:00, Stop date: 02/25/13 22:30:00 calcium 2012-0 No Ike 1,000 mg, Me moria gluconate + 9-02 Danny 10 mL, l Dextrose 5% 03:30: Silverio Route: IV, [place] in Water IV 00 Drug form: 100 [...] l Dextrose 5% 03:30: Silverio Route: IV, [place] in Water IV 00 Drug form: 100 [...] Ike 1 gm, 50 Mem oria gluconate 9-02 Danny mL, Route: l 01:50: Silverio IV, Drug Herm karina 00 form: INJ, ONCE, Start date: 02/25/13 20:50:00, Stop date: 02/25/13 20:50:00 calcium 2012-0 No Ike 1 gm, 50 Mem oria gluconate 9-02 Danny mL, Route: l 01:50: Silverio IV, Drug Herm karina 00 form: INJ, ONCE, Start date: 02/25/13 20:50:00, Stop date: 02/25/13 20:50:00 calcium 2012-0 No Ike 1 gm, 50 Mem oria gluconate 9-02 Danny mL, Route: l 01:50: Silverio IV, Drug Herm karina 00 form: INJ, ONCE, Start date: 02/25/13 20:50:00, Stop date: 02/25/13 20:50:00 calcium 2012-0 No Ike 1 gm, 50 Mem oria gluconate 9-02 Danny mL, Route: l 01:50: Silverio IV, Drug Herm karina 00 form: INJ, ONCE, Start date: 02/25/13 20:50:00, Stop date: 02/25/13 20:50:00 calcium 2012-0 No Ike 1 gm, 50 Mem oria gluconate - Danny mL, Route: l 01:50: Silverio IV, Drug Herm karina 00 form: INJ, ONCE, Start date: 02/25/13 20:50:00, Stop date: 02/25/13 20:50:00 calcium 2012-0 No Ike 1 gm, 50 Mem oria gluconate - Danny mL, Route: l 01:50: Silverio IV, Drug Herm karina 00 form: INJ, ONCE, Start date: 02/25/13 20:50:00, Stop date: 02/25/13 20:50:00 Insulin No Nancy-Ye 99 mL, Memor ia regular 100 02-25 Irlanda Sameer Rate: l unit + 21:22: titrate, Jesús Sodium 00 Route: IV, Chloride Dosing 0.9% IV 99 Weight 65 mL kg, Total Volume: 100, Start date: 02/25/13 16:22:00, Duration: 30 day, Stop date: 03/27/13 16:21:00 Insulin 0 No Nancy-Ye 99 mL, Mem[facility] regular 100 02-25 Irlanda Sameer Rate: l unit + 21:22: titrate, Jesús Sodium 00 Route: IV, Chloride Dosing 0.9% IV 99 Weight 65 mL kg, Total Volume: 100, Start date: 02/25/13 16:22:00, Duration: 30 day, Stop date: 03/27/13 16:21:00 Insulin 2012-0 No Nancy-Ye 99 mL, Mem[facility] ia regular 100 02-25 Irlanda Sameer Rate: l unit + 21:22: titrate, [place] Sodium 00 Route: IV, Chloride Dosing 0.9% IV 99 Weight 65 mL kg, Total Volume: 100, Start date: 02/25/13 16:22:00, Duration: 30 day, Stop date: 03/27/13 16:21:00 Insulin 2012-0 No Nancy-Ye 99 mL, Mem[facility] regular 100 02-25 Irlanda Sameer Rate: l unit + 21:22: titrate, [place] Sodium 00 Route: IV, Chloride Dosing 0.9% IV 99 Weight 65 mL kg, Total Volume: 100, Start date: 02/25/13 16:22:00, Duration: 30 day, Stop date: 03/27/13 16:21:00 Insulin 2012-0 No Nancy-Ye 99 mL, [facility] regular 100 02-25 Irlanda Sameer Rate: l unit + 21:22: titrate, [place] Sodium 00 Route: IV, Chloride Dosing 0.9% IV 99 Weight 65 mL kg, Total Volume: 100, Start date: 02/25/13 16:22:00, Duration: 30 day, Stop date: 03/27/13 16:21:00 Insulin 2012-0 No Nancy-Ye 99 mL, [facility] regular 100 02-25 Irlanda Sameer Rate: l unit + 21:22: titrate, [place] Sodium 00 Route: IV, Chloride Dosing 0.9% IV 99 Weight 65 mL kg, Total Volume: 100, Start date: 02/25/13 16:22:00, Duration: 30 day, Stop date: 03/27/13 16:21:00 Dextrose 5% 2012-0 No Nancy-Ye 1,000 mL, [facility] in Water IV 02-25 Irlanda Sameer Rate: 50 l 1,000 mL 17:39: ml/hr, Jesús 00 Infuse over: 20 hr, Route: IV, Dosing Weight 65 kg, Total Volume: 1,000, Start date: 02/25/13 12:39:00, Duration: 30 day, Stop date: 03/27/13 12:38:00 Dextrose 5% 2012-0 No Nancy-Ye 1,000 mL, [facility] in Water IV 02-25 Irlanda Sameer Rate: 50 l 1,000 mL 17:39: ml/hr, [place] 00 Infuse over: 20 hr, Route: IV, Dosing Weight 65 kg, Total Volume: 1,000, Start date: 02/25/13 12:39:00, Duration: 30 day, Stop date: 03/27/13 12:38:00 Dextrose 5% 2012-0 No Nancy-Ye 1,000 mL, [facility] in Water IV 02-25 Irlanda Sameer Rate: 50 l 1,000 mL 17:39: ml/hr, [place] 00 Infuse over: 20 hr, Route: IV, Dosing Weight 65 kg, Total Volume: 1,000, Start date: 02/25/13 12:39:00, Duration: 30 day, Stop date: 03/27/13 12:38:00 Dextrose 5% 2012-0 No Nancy-Ye 1,000 mL, [facility] in [place] IV 02-25 Irlanda Sameer Rate: 50 l 1,000 mL 17:39: ml/hr, Jesús 00 Infuse over: 20 hr, Route: IV, Dosing Weight 65 kg, Total Volume: 1,000, Start date: 02/25/13 12:39:00, Duration: 30 day, Stop date: 03/27/13 12:38:00 Dextrose 5% 2012-0 No Nancy-Ye 1,000 mL, [facility] in [place] IV 02-25 Irlanda Sameer Rate: 50 l 1,000 mL 17:39: ml/hr, Jesús 00 Infuse over: 20 hr, Route: IV, Dosing Weight 65 kg, Total Volume: 1,000, Start date: 02/25/13 12:39:00, Duration: 30 day, Stop date: 03/27/13 12:38:00 Dextrose 5% 2012-0 No Nancy-Ye 1,000 mL, [facility] in [place] IV 02-25 Irlanda Sameer Rate: 50 l 1,000 mL 17:39: ml/hr, [place] 00 Infuse over: 20 hr, Route: IV, Dosing Weight 65 kg, Total Volume: 1,000, Start date: 02/25/13 12:39:00, Duration: 30 day, Stop date: 03/27/13 12:38:00 SoluMedrol 2012-0 No Liana 60 mg, 1.5 Memoria -01 Ahmed mL, Route: l 17:00: Badar IV, Drug Jesús 00 form: INJ, Q8H, Dosing Weight 65, kg, Start date: 02/25/13 12:00:00, Duration: 30 day, Stop date: 03/27/13 6:30:00 SoluMedrol 2013-0 No Liana 60 mg, 1.5 Memoria 9-01 Ahmed mL, Route: l 17:00: Badar IV, Drug Jesús 00 form: INJ, Q8H, Dosing Weight 65, kg, Start date: 02/25/13 12:00:00, Duration: 30 day, Stop date: 03/27/13 6:30:00 SoluMedrol 2013-0 No Liana 60 mg, 1.5 Memoria 9-01 Ahmed mL, Route: l 17:00: Badar IV, Drug Jesús 00 form: INJ, Q8H, Dosing Weight 65, kg, Start date: 02/25/13 12:00:00, Duration: 30 day, Stop date: 03/27/13 6:30:00 SoluMedrol 2013-0 No Liana 60 mg, 1.5 Memoria 9-01 Ahmed mL, Route: l 17:00: Badar IV, Drug Jesús 00 form: INJ, Q8H, Dosing Weight 65, kg, Start date: 02/25/13 12:00:00, Duration: 30 day, Stop date: 03/27/13 6:30:00 SoluMedrol 2013-0 No Liana 60 mg, 1.5 Memoria 9-01 Ahmed mL, Route: l 17:00: Badar IV, Drug Jesús 00 form: INJ, Q8H, Dosing Weight 65, kg, Start date: 02/25/13 12:00:00, Duration: 30 day, Stop date: 03/27/13 6:30:00 SoluMedrol 2013-0 No Liana 60 mg, 1.5 Memoria 9-01 Ahmed mL, Route: l 17:00: Badar IV, Drug [place] 00 form: INJ, Q8H, Dosing Weight 65, kg, Start date: 02/25/13 12:00:00, Duration: 30 day, Stop date: 03/27/13 6:30:00 Lasix 2012-0 No Marbin M 20 mg, 2 Mem oria -01 Sanderson mL, Route: l 14:00: IVP, Drug [place] 00 form: INJ, Daily, Dosing Weight 65, kg, Start date: 02/25/13 9:00:00, Duration: 30 day, Stop date: 03/26/13 9:00:00 Lasix 2013-0 No Marbin M 20 mg, 2 Mem oria -01 Sanderson mL, Route: l 14:00: IVP, Drug [place] 00 form: INJ, Daily, Dosing Weight 65, kg, Start date: 02/25/13 9:00:00, Duration: 30 day, Stop date: 03/26/13 9:00:00 Lasix No Marbin M 20 mg, 2 Mem oria 02-25 Sanderson mL, Route: l 14:00: IVP, Drug [place] 00 form: INJ, Daily, Dosing Weight 65, kg, Start date: 02/25/13 9:00:00, Duration: 30 day, Stop date: 03/26/13 9:00:00 Lasix No Marbin M 20 mg, 2 Mem oria 02-25 Sanderson mL, Route: l 14:00: IVP, Drug Jesús 00 form: INJ, Daily, Dosing Weight 65, kg, Start date: 02/25/13 9:00:00, Duration: 30 day, Stop date: 03/26/13 9:00:00 Lasix No Marbin M 20 mg, 2 Mem oria 02-25 Sanderson mL, Route: l 14:00: IVP, Drug Jesús 00 form: INJ, Daily, Dosing Weight 65, kg, Start date: 02/25/13 9:00:00, Duration: 30 day, Stop date: 03/26/13 9:00:00 Lasix No Marbin M 20 mg, 2 Mem oria 02-25 Sanderson mL, Route: l 14:00: IVP, Drug Jesús 00 form: INJ, Daily, Dosing Weight 65, [...] Marnie mL, Route: l Sodium 12:11: IVPB, [place] Chloride 00 ONCE, 0.9% IV 100 Dosing [...] Marnie mL, Route: l Sodium 12:11: IVPB, [place] Chloride 00 ONCE, 0.9% IV 100 Dosing mL Weight 65, kg, Start date: 02/25/13 7:11:00, Stop date: 02/25/13 7:11:00 calcium No Westley A 2 gm, 20 Me moria gluconate + 9-01 Marnie mL, Route: l Sodium 12:11: IVPB, [place] Chloride 00 ONCE, 0.9% IV 100 Dosing [...] 02-24 Route: IV, l 21:25: Drug form: [place] 00 PDR/INJ, PRN, PRN Blood Glucose Results, Start date: 02/24/13 16:25:00, Duration: 30 day, Stop date: 03/26/13 16:24:00 Dextrose No Franky 50 mL, Memor ia 50% in 02-24 Route: l Water IV 21:25: IVP, Start [facility] date: 02/24/13 16:25:00, Duration: 30 day, Stop date: 03/26/13 16:24:00, PRN Blood Glucose Results NovoLog No Franky 10 unit, Hossein diana FlexPen 02-24 0.1 mL, l 21:25: Route: Jesús 00 SUB-Q, Drug form: SOLN, Sliding Scale, PRN Blood Glucose Results, Start date: 02/24/13 16:25:00, Duration: 30 day, Stop date: 03/26/13 16:24:00 glucagon No Franky 1 mg, Memori a 02-24 Route: IV, l 21:25: Drug form: Jesús 00 PDR/INJ, PRN, PRN Blood Glucose Results, Start date: 02/24/13 16:25:00, Duration: 30 day, Stop date: 03/26/13 16:24:00 Dextrose No Franky 50 mL, Memor ia 50% in 02-24 Route: l Water IV 21:25: IVP, Start [facility] date: 02/24/13 16:25:00, Duration: 30 day, Stop date: 03/26/13 16:24:00, PRN Blood Glucose Results NovoLog No Franky 10 unit, Hossein diana FlexPen 02-24 0.1 mL, l 21:25: Route: [place] 00 SUB-Q, Drug form: SOLN, Sliding Scale, PRN Blood Glucose Results, Start date: 02/24/13 16:25:00, Duration: 30 day, Stop date: 03/26/13 16:24:00 glucagon 2012-0 No Franky 1 mg, Memori a 02-24 Route: IV, l 21:25: Drug form: [place] 00 PDR/INJ, PRN, PRN Blood Glucose Results, Start date: 02/24/13 16:25:00, Duration: 30 day, Stop date: 03/26/13 16:24:00 Dextrose 2012-0 No Franky 50 mL, Memor ia 50% in 02-24 Route: l Water IV 21:25: IVP, Start [facility] date: 02/24/13 16:25:00, Duration: 30 day, Stop date: 03/26/13 16:24:00, PRN Blood Glucose Results NovoLog 2012-0 No Franky 10 unit, Hossein diana FlexPen 02-24s 0.1 mL, l 21:25: Route: Jesús SUB-Q, [...] Water IV 21:25: IVP, Start [facility] date: 02/24/13 16:25:00, Duration: 30 day, Stop date: 03/26/13 16:24:00, PRN Blood Glucose Results NovoLog 2012-0 No Franky 10 unit, Hossein diana FlexPen 02-24s 0.1 mL, l 21:25: Route: [place] SUB-Q, Drug form: SOLN, Sliding Scale, PRN [...] 02-24 0.1 mL, l 21:25: Route: Jesús 00 [...] 02-24 0.1 mL, l 21:25: Route: Jesús 00 SUB-Q, Drug form: SOLN, Sliding Scale, PRN Blood Glucose Results, Start date: 02/24/13 16:25:00, Duration: 30 day, Stop date: 03/26/13 16:24:00 NovoLog 2012-0 No Franky 6 unit, Memor ia FlexPen 8-31 Avendaño 0.06 mL, l 21:24: Route: [place] 00 SUB-Q, Drug form: SOLN, Sliding Scale, PRN Blood Glucose Results, Start date: 02/24/13 16:24:00, Duration: 30 day, Stop date: 03/26/13 16:23:00 NovoLog 2012-0 No Franky 6 unit, Memor ia FlexPen 8-31 Avendaño 0.06 mL, l 21:24: Route: [place] 00 SUB-Q, Drug form: SOLN, Sliding Scale, PRN Blood Glucose Results, Start date: 02/24/13 16:24:00, Duration: 30 day, Stop date: 03/26/13 16:23:00 NovoLog 2012-0 No Franky 6 unit, Memor ia FlexPen 8-31 Avendaño 0.06 mL, l 21:24: Route: [place] 00 SUB-Q, Drug form: SOLN, Sliding Scale, PRN Blood Glucose Results, Start date: 02/24/13 16:24:00, Duration: 30 day, Stop date: 03/26/13 16:23:00 NovoLog 2012-0 No Franky 6 unit, Memor ia FlexPen 8- Avendaño 0.06 mL, l 21:24: Route: [place] 00 SUB-Q, Drug form: SOLN, Sliding Scale, PRN Blood Glucose Results, Start date: 02/24/13 16:24:00, Duration: 30 day, Stop date: 03/26/13 16:23:00 NovoLog 2012-0 No Franky 6 unit, Memor ia FlexPen 8-31 Avendaño 0.06 mL, l 21:24: Route: Jesús 00 SUB-Q, Drug form: SOLN, Sliding Scale, PRN Blood Glucose Results, Start date: 02/24/13 16:24:00, Duration: 30 day, Stop date: 03/26/13 16:23:00 NovoLog 2012-0 No Franky 6 unit, Memor ia FlexPen 8-31 Avendaño 0.06 mL, l 21:24: Route: [place] 00 SUB-Q, Drug form: SOLN, Sliding Scale, PRN Blood Glucose Results, Start date: 02/24/13 16:24:00, Duration: 30 day, Stop date: 03/26/13 16:23:00 ipratropium 2013-0 No Ike 0.5 mg, Memoria 0.02% 8-31 Danny 2.5 mL, l inhalation 20:00: Silverio Route: Jesús solution 00 NEB, Drug form: SOLN, RQ4H, [...] 30 day, Stop date: 03/26/13 11:00:00 Mucomyst-20 2013-0 No Liana 600 mg, 3 Memoria inhalation 8-31 Ahmed mL, Route: l solution 20:00: Badar NEB, Drug [place] 00 Form: SOLN, Dosing Weight 65, kg, RQ4H, Start date: 02/24/13 15:00:00, Duration: 30 day, Stop date: 03/26/13 11:00:00 ipratropium 2012-0 No Ike 0.5 mg, Memoria 0.02% 8-31 Danny 2.5 mL, l inhalation 20:00: Silverio Route: [place] solution NEB, Drug form: SOLN, RQ4H, Start date: 02/24/13 15:00:00, Duration: 30 day, Stop date: 03/26/13 11:00:00 Mucomyst-20 2012-0 No Liana 600 mg, 3 Memoria inhalation 8-31 Ahmed mL, Route: l solution 20:00: Rob SANCHEZ, Drug Her [place] 00 Form: SOLN, Dosing Weight 65, kg, RQ4H, Start date: 02/24/13 15:00:00, Duration: 30 day, Stop date: 03/26/13 11:00:00 ipratropium 2012-0 No Ike 0.5 mg, Memoria 0.02% 8-31 Danny 2.5 mL, l inhalation 20:00: Silverio Route: [place] solution NEB, Drug form: SOLN, RQ4H, Start date: 02/24/13 15:00:00, Duration: 30 day, Stop date: 03/26/13 11:00:00 Mucomyst-20 2012-0 No Liana 600 mg, 3 Memoria inhalation 8-31 Ahmed mL, Route: l solution 20:00: Rob SANCHEZ Drug Her [place] 00 Form: SOLN, Dosing Weight 65, kg, RQ4H, Start date: 02/24/13 15:00:00, Duration: 30 day, Stop date: 03/26/13 11:00:00 ipratropium 2012-0 No Ike 0.5 mg, Memoria 0.02% 8-31 Danny 2.5 mL, l inhalation 20:00: Silverio Route: Jesús solution NEB, Drug form: SOLN, RQ4H, Start date: 02/24/13 15:00:00, Duration: 30 day, Stop date: 03/26/13 11:00:00 Mucomyst-20 2013-0 No Liana 600 mg, 3 Memoria inhalation 8-31 Ahmed mL, Route: l solution 20:00: Rob SANCHEZ, Drug Her [place] 00 Form: SOLN, Dosing [...] mL, Route: l 17:00: Jr IV, Drug [place] 00 form: INJ, Q6H, Start date: 02/24/13 [...] mL, Route: l 17:00: Jr IV, Drug [place] 00 form: INJ, Q6H, Start date: 02/24/13 [...] 30 day, Stop date: 03/26/13 9:00:00 Lasix 2013-0 No Ike 40 mg, 4 Memor ia 8-31 Danny mL, Route: l 16:03: Silverio IV, Drug Herm karina 00 form: INJ, QAM, Start date: 02/24/13 11:03:00, Duration: 30 day, Stop date: 03/26/13 9:00:00 Lasix No Westley A 20 mg, 2 Hossein diana 8-31 Marnie mL, Route: l 14:08: IVP, Drug [place] 00 form: INJ, ONCE, Dosing Weight 65, kg, Start date: 02/24/13 9:08:00, Stop date: 02/24/13 9:08:00 Lasix No Westley A 20 mg, 2 Hossein diana 8-31 Marnie mL, Route: l 14:08: IVP, Drug Jesús 00 form: INJ, ONCE, Dosing Weight 65, kg, Start date: 02/24/13 9:08:00, Stop date: 02/24/13 9:08:00 Lasix No Westley A 20 mg, 2 Hossein diana 8-31 Marnie mL, Route: l 14:08: IVP, Drug Jesús 00 form: INJ, ONCE, Dosing Weight 65, kg, Start date: 02/24/13 9:08:00, Stop date: 02/24/13 9:08:00 Lasix No Westley A 20 mg, 2 Hossein diana 8-31 Marnie mL, Route: l 14:08: IVP, Drug [place] 00 form: INJ, ONCE, Dosing Weight 65, kg, Start date: 02/24/13 9:08:00, Stop date: 02/24/13 9:08:00 Lasix No Westley A 20 mg, 2 Hossein diana 8-31 Marnie mL, Route: l 14:08: IVP, Drug [place] 00 form: INJ, ONCE, Dosing Weight 65, kg, Start date: 02/24/13 9:08:00, Stop date: 02/24/13 9:08:00 Lasix No Westley A 20 mg, 2 Hossein diana 8-31 Marnie mL, Route: l 14:08: IVP, Drug [place] 00 form: INJ, ONCE, Dosing Weight 65, kg, Start date: 02/24/13 9:08:00, Stop date: 02/24/13 9:08:00 protamine + No Ike 50 mg, 5 Memoria Sodium 8-31 Danny mL, Route: l Chloride 06:15: Silverio IV, Drug [place] 0.9% IV 100 00 form: INJ, mL ONCE, Start date: 02/24/13 1:15:00, Stop date: 02/24/13 1:15:00 protamine + 2013-0 No Ike 50 mg, 5 Memoria Sodium 8-31 Danny mL, Route: l Chloride 06:15: Silverio IV, Drug [place] 0.9% IV 100 00 form: INJ, mL ONCE, Start date: 02/24/13 1:15:00, Stop date: 02/24/13 1:15:00 protamine + 2012-0 No Ike 50 mg, 5 Memoria Sodium 8-31 Danny mL, Route: l Chloride 06:15: Silverio IV, Drug [place] 0.9% IV 100 00 form: INJ, mL ONCE, Start date: 02/24/13 1:15:00, Stop date: 02/24/13 1:15:00 protamine + 2012-0 No Ike 50 mg, 5 Memoria Sodium 8-31 Danny mL, Route: l Chloride 06:15: Silverio IV, Drug [place] 0.9% IV 100 00 form: INJ, mL ONCE, Start date: 02/24/13 1:15:00, Stop date: 02/24/13 1:15:00 protamine + 2012-0 No Ike 50 mg, 5 Memoria Sodium 8-31 Danyn mL, Route: l Chloride 06:15: Silverio IV, [...] 02/24/13 0:08:00, Stop date: 02/24/13 0:08:00 phytonadion 2012-0 No Devan 10 mg, 1 Memoria e + Sodium 8-31 A. Loyd mL, Route: l Chloride 05:08: IVPB, Jesús 0.9% IV 50 00 ONCE, mL Start date: 02/24/13 0:08:00, Stop date: 02/24/13 0:08:00 phytonadion 2012-0 No Devan 10 mg, 1 Memoria e + Sodium 8-31 A. Loyd mL, Route: l Chloride 05:08: IVPB, [place] 0.9% IV 50 00 ONCE, mL Start date: 02/24/13 0:08:00, Stop date: 02/24/13 0:08:00 phytonadion 2012-0 No Devan 10 mg, 1 Memoria e + Sodium 8-31 A. Loyd mL, Route: l Chloride 05:08: IVPB, [place] 0.9% IV 50 00 ONCE, mL Start date: 02/24/13 0:08:00, Stop date: 02/24/13 0:08:00 phytonadion 2012-0 No Devan 10 mg, 1 Memoria e + Sodium 8-31 A. Loyd mL, Route: l Chloride 05:08: IVPB, Jseús 0.9% IV 50 00 ONCE, mL Start date: 02/24/13 0:08:00, Stop date: 02/24/13 0:08:00 phytonadion 2012-0 No Devan 10 mg, 1 Memoria e + Sodium 8-31 A. Loyd mL, Route: l Chloride 05:08: IVPB, Jesús 0.9% IV 50 00 ONCE, mL Start date: 02/24/13 0:08:00, Stop date: 02/24/13 0:08:00 phytonadion 2012-0 No Devan 10 mg, 1 Memoria e 8-31 A. Loyd mL, Route: l 04:32: IV, Drug [place] 00 form: INJ, ONCE, Start date: 02/23/13 23:32:00, Stop date: 02/23/13 23:32:00 phytonadion 2012-0 No Devan 10 mg, 1 Memoria e 8-31 A. Loyd mL, Route: l 04:32: IV, Drug [place] 00 form: INJ, ONCE, Start date: 02/23/13 23:32:00, Stop date: 02/23/13 23:32:00 phytonadion 2012-0 No Devan 10 mg, 1 Memoria e 8-31 A. Loyd mL, Route: l 04:32: IV, Drug [place] 00 form: INJ, ONCE, Start date: 02/23/13 23:32:00, Stop date: 02/23/13 23:32:00 phytonadion 2012-0 No Devan 10 mg, 1 Memoria e 8-31 A. Loyd mL, Route: l 04:32: IV, Drug Jesús 00 form: INJ, ONCE, Start date: 02/23/13 23:32:00, Stop date: 02/23/13 23:32:00 phytonadion 2012-0 No Devan 10 mg, 1 Memoria e 8-31 A. Loyd mL, Route: l 04:32: IV, Drug Jesús 00 form: INJ, ONCE, Start date: 02/23/13 23:32:00, Stop date: 02/23/13 23:32:00 phytonadion 2012-0 No Devan 10 mg, 1 Memoria e 8-31 A. Loyd mL, Route: l 04:32: IV, Drug Jesús form: INJ, ONCE, Start date: 02/23/13 23:32:00, [...] 02/23/13 20:00:00, Stop date: 02/23/13 20:00:00 calcium 2013-0 No Ike 1 gm, 50 Mem oria gluconate 8-31 Danny mL, Route: l 01:00: Silverio IV, Drug Herm karnia 00 form: INJ, ONCE, Start date: 02/23/13 20:00:00, Stop date: 02/23/13 20:00:00 calcium 2012-0 No Ike 1 gm, 50 Mem oria gluconate 8-31 Danny mL, Route: l 01:00: Sliverio IV, Drug Herm karina 00 form: INJ, ONCE, Start date: 02/23/13 20:00:00, Stop date: 02/23/13 20:00:00 calcium 2012-0 No Ike 1 gm, 50 Mem oria gluconate 8-31 Danny mL, Route: l 01:00: Silverio IV, Drug Herm karina 00 form: INJ, ONCE, Start date: 02/23/13 20:00:00, Stop date: 02/23/13 20:00:00 budesonide 2012-0 No Liana 1 mg, 4 M emoria 8-30 Ahmed mL, Route: l 22:00: Rob SANCHEZ, Drug Jesús 00 form: LUKE RQ12H, Dosing Weight 65, kg, Start date: 02/23/13 17:00:00, Stop date: 03/25/13 4:00:00 budesonide 2012-0 No Liana 1 mg, 4 M emoria 8-30 Ahmed mL, Route: l 22:00: Rob SANCHEZ, Drug [place] 00 form: LUKE, RQ12H, Dosing Weight 65, kg, Start date: 02/23/13 17:00:00, Stop date: 03/25/13 4:00:00 budesonide 2012-0 No Liana 1 mg, 4 M emoria 8-30 Ahmed mL, Route: l 22:00: Rob SANCHEZ, Drug Jesús 00 form: LUKE RQ12H, Dosing Weight 65, kg, Start date: 02/23/13 17:00:00, Stop date: 03/25/13 4:00:00 budesonide 2012-0 No Liana 1 mg, 4 M emoria 8-30 Ahmed mL, Route: l 22:00: Badar NEB, Drug [place] 00 form: DEANAN, RQ12H, Dosing Weight 65, kg, Start date: [...] 22:00: Badar NEB, Drug Jesús 00 form: DEANAN, RQ12H, Dosing Weight 65, kg, Start date: [...] 30 day, Stop date: 03/24/13 16:30:00 Prevacid 2013-0 No Ike 30 mg, 10 M emoria 8-30 Danny mL, Route: l 21:30: Silverio PO, Drug Herm karina 00 form: SUSP, Before Dinner, Start date: 02/23/13 16:30:00, Duration: 30 day, Stop date: 03/24/13 16:30:00 Prevacid 2013-0 No Ike 30 mg, 10 M emoria 8-30 Danny mL, Route: l 21:30: Silverio PO, Drug Herm karina 00 form: SUSP, Before Dinner, Start date: 02/23/13 16:30:00, Duration: 30 day, Stop date: 03/24/13 16:30:00 morphine 2012-0 No Nancy-Ye IV, Start M emoria Sulfate 30 8-30 Irlanda Sameer date: l mg 18:58: 02/23/13 13:58:00, Duration: 30, 30 ml, 65 morphine 2012-0 No Nancy-Ye IV, Start M emoria Sulfate 30 8-30 Irlanda Sameer date: l mg 18:58: 02/23/13 13:58:00, Duration: 30, 30 ml, 65 morphine 2012-0 No Nancy-Ye IV, Start M emoria Sulfate 30 8-30 Irlanda Sameer date: l mg 18:58: 02/23/13 13:58:00, Duration: 30, 30 ml, 65 morphine 2012-0 No Nancy-Ye IV, Start M emoria Sulfate 30 8-30 Irlanda Sameer date: l mg 18:58: 02/23/13 13:58:00, Duration: 30, 30 ml, 65 morphine 2012-0 No Nancy-Ye IV, Start M emoria Sulfate 30 8-30 Irlanda Sameer date: l mg 18:58: 02/23/13 13:58:00, Duration: 30, 30 ml, 65 morphine 2012-0 No Nancy-Ye IV, Start M emoria Sulfate 30 8-30 Irlanda Sameer date: l mg 18:58: 02/23/13 Jesús 00 13:58:00, Duration: 30, 30 ml, 65 morphine 2012-0 No Ike 2 mg, 1 Mem oria Sulfate 8-30 Danny mL, Route: l 18:57: Silverio IV, Drug Herm karina 00 form: INJ, Q2H, PRN Pain, Start date: 02/23/13 13:57:00, Duration: 30 day, Stop date: 03/25/13 13:56:00 morphine 2012-0 No Ike 2 mg, 1 Mem oria Sulfate 8-30 Danny mL, Route: l 18:57: Silverio IV, Drug Herm karina 00 form: INJ, Q2H, PRN Pain, Start date: 02/23/13 13:57:00, Duration: 30 day, Stop date: 03/25/13 13:56:00 morphine 2012-0 No Ike 2 mg, 1 Mem oria Sulfate 8-30 Danny mL, Route: l 18:57: Silverio IV, Drug Herm karina 00 form: INJ, Q2H, PRN Pain, Start date: 02/23/13 13:57:00, Duration: 30 day, Stop date: 03/25/13 13:56:00 morphine 2012-0 No Ike 2 mg, 1 Mem oria Sulfate 8-30 Danny mL, Route: l 18:57: Silverio IV, Drug Herm karina 00 form: INJ, Q2H, PRN Pain, Start date: 02/23/13 13:57:00, Duration: 30 day, Stop date: 03/25/13 13:56:00 morphine 2012-0 No Ike 2 mg, 1 Mem oria Sulfate 8-30 Danny mL, Route: l 18:57: Silverio IV, Drug Herm karina 00 form: INJ, Q2H, PRN Pain, Start date: 02/23/13 13:57:00, Duration: 30 day, Stop date: 03/25/13 13:56:00 morphine 2012-0 No Ike 2 mg, 1 Mem oria Sulfate 8-30 Danny mL, Route: l 18:57: Silverio IV, Drug Herm karina 00 form: INJ, Q2H, PRN Pain, Start date: 02/23/13 13:57:00, Duration: 30 day, Stop date: 03/25/13 13:56:00 ipratropium 2013-0 No Liana 0.5 mg, Memoria 8-30 Ahmed 2.5 mL, l 18:06: Badar Route: [place] NEB, Drug form: SOLN, Q4H, Dosing Weight 65, kg, PRN Respirator y Protocol, Start date: 02/23/13 13:06:00, Duration: 30 day, Stop date: 03/25/13 13:05:00 ipratropium 2013-0 No Liana 0.5 mg, Memoria 8-30 Ahmed 2.5 mL, l 18:06: Badar Route: [place] NEB, Drug form: SOLN, Q4H, Dosing Weight [...] Ahmed 2.5 mL, l 18:06: Badar Route: [place] NEB, Drug form: SOLN, Q4H, Dosing Weight [...] Ahmed 2.5 mL, l 18:06: Badar Route: [place] 00 NEB, Drug form: SOLN, Q4H, Dosing Weight [...] mL, Route: l 18:05: Badar NEB, Drug [place] 00 form: SOLN, RQ8H, Dosing Weight 65, kg, Start date: 02/23/13 13:05:00, Duration: 30 day, Stop date: 03/25/13 7:00:00 Ativan 2013-0 No Liana 1 mg, 0.5 Mem oria 8-30 Ahmed mL, Route: l 18:05: Badar IV, Drug [place] 00 form: INJ, Q3H, Dosing Weight 65, kg, PRN Anxiety, Start date: 02/23/13 13:05:00, Duration: 30 day, Stop date: 03/25/13 13:04:00 Xopenex 2013-0 No Liana 1.25 mg, 3 M emoria 8-30 Ahmed mL, Route: l 18:05: Badar NEB, Drug Jesús 00 form: SOLN, RQ8H, Dosing Weight 65, kg, Start date: 02/23/13 13:05:00, Duration: 30 day, Stop date: 03/25/13 7:00:00 Ativan 2013-0 No Liana 1 mg, 0.5 Mem oria 8-30 Ahmed mL, Route: l 18:05: Badar IV, Drug Jesús 00 form: INJ, Q3H, Dosing Weight 65, kg, PRN Anxiety, Start date: 02/23/13 13:05:00, Duration: 30 day, Stop date: 03/25/13 13:04:00 Xopenex 2013-0 No Liana 1.25 mg, 3 M emoria 8-30 Ahmed mL, Route: l 18:05: Badar NEB, Drug [place] 00 form: SOLN, RQ8H, Dosing Weight 65, kg, Start date: 02/23/13 13:05:00, Duration: 30 day, Stop date: 03/25/13 7:00:00 Ativan 2012-0 No Liana 1 mg, 0.5 Mem oria 8-30 Ahmed mL, Route: l 18:05: Badar IV, Drug Jesús 00 form: INJ, Q3H, Dosing Weight 65, kg, PRN Anxiety, Start date: 02/23/13 13:05:00, Duration: 30 day, Stop date: 03/25/13 13:04:00 Xopenex 2013-0 No Liana 1.25 mg, 3 M emoria 8-30 Ahmed mL, Route: l 18:05: Badar NEB, Drug [place] 00 form: SOLN, RQ8H, Dosing Weight 65, kg, Start date: 02/23/13 13:05:00, Duration: 30 day, Stop date: 03/25/13 7:00:00 Ativan 2012-0 No Liana 1 mg, 0.5 Mem oria 8-30 Ahmed mL, Route: l 18:05: Badar IV, Drug [place] 00 form: INJ, Q3H, Dosing Weight 65, kg, PRN Anxiety, Start date: 02/23/13 13:05:00, Duration: 30 day, Stop date: 03/25/13 13:04:00 Xopenex 2013-0 No Liana 1.25 mg, 3 M emoria 8-30 Ahmed mL, Route: l 18:05: Badar NEB, Drug Jesús 00 form: SOLN, RQ8H, Dosing Weight 65, kg, Start date: 02/23/13 13:05:00, Duration: 30 day, Stop date: 03/25/13 7:00:00 Ativan 2013-0 No Liana 1 mg, 0.5 Mem oria 8-30 Ahmed mL, Route: l 18:05: Badar IV, Drug form: INJ, Q3H, Dosing Weight 65, kg, PRN Anxiety, Start date: 02/23/13 13:05:00, Duration: 30 day, Stop date: 03/25/13 13:04:00 Lopressor 2012-0 No Jeff 2.5 mg, Mem oria 8-30 Barbara 2.5 mL, l 14:00: Jr Route: IV, [place] 00 Drug form: INJ, Q12H, Start date: 02/23/13 9:00:00, Duration: 30 day, Stop date: 03/24/13 21:00:00 Lopressor 2012-0 No Jeff 2.5 mg, Mem oria 8-30 Barbara 2.5 mL, l 14:00: Jr Route: IV, Drug form: INJ, Q12H, Start date: 02/23/13 [...] 2.5 mL, l 14:00: Jr Route: IV, [place] Drug form: INJ, Q12H, Start date: 02/23/13 9:00:00, Duration: 30 day, Stop date: 03/24/13 21:00:00 Lopressor 2012-0 No Jeff 2.5 mg, Mem oria 8-30 Barbara 2.5 mL, l 14:00: Jr Route: IV, [place] Drug form: INJ, Q12H, Start date: 02/23/13 9:00:00, Duration: 30 day, Stop date: 03/24/13 21:00:00 albumin No Ike 25 gm, 100 M emoria human 8-30 Danny mL, Route: l 11:01: Silverio IV, Drug Herm karina 00 form: INJ, ONCE, Start date: 02/23/13 6:01:00, Stop date: 02/23/13 6:01:00 albumin No Ike 25 gm, 100 M emoria human 8-30 Danny mL, Route: l 11:01: Silverio IV, Drug Herm karina 00 form: INJ, ONCE, Start date: 02/23/13 6:01:00, Stop date: 02/23/13 6:01:00 albumin No Ike 25 gm, 100 M emoria human 8-30 Danny mL, Route: l 11:01: Silverio IV, Drug Herm karina 00 form: INJ, ONCE, Start date: 02/23/13 6:01:00, Stop date: 02/23/13 6:01:00 albumin No Ike 25 gm, 100 M emoria human 8-30 Danny mL, Route: l 11:01: Silverio IV, Drug Herm karina 00 form: INJ, ONCE, Start date: 02/23/13 6:01:00, Stop date: 02/23/13 6:01:00 albumin No Ike 25 gm, 100 M emoria human 8-30 Danny mL, Route: l 11:01: Silverio IV, Drug Herm karina 00 form: INJ, ONCE, Start date: 02/23/13 6:01:00, Stop date: 02/23/13 6:01:00 albumin No Ike 25 gm, 100 M emoria [...] mL, l intravenous 03:00: Silverio Route: IV, [place] solution 00 Drug form: INJ, ONCE, Start date: 02/22/13 22:00:00, Stop date: 02/22/13 22:00:00 Sodium 2013-0 No Ike IV, 0 Memoria Chloride 8-30 Danny ml/hr, l 0.9% IV 03:00: Silverio PRN, PRN H ermann 00 See Nurse's Notes, Start date: 02/22/13 22:00:00, 250 ml albumin 2012-0 No Ike 12.5 gm, Mem oria human 5% 8-30 Danny 250 mL, l intravenous 03:00: Silverio Route: IV, [place] solution 00 Drug form: INJ, ONCE, Start [...] Start date: 02/22/13 22:00:00, 250 ml albumin 2013-0 No Ike 12.5 gm, Mem oria human 5% 8-30 Danny 250 mL, l intravenous 03:00: Silverio Route: IV, [place] solution 00 Drug form: INJ, ONCE, Start date: 02/22/13 22:00:00, Stop date: 02/22/13 22:00:00 Sodium 2012-0 No Ike IV, 0 Memoria Chloride 8-30 Danny ml/hr, l 0.9% IV 03:00: Silverio PRN, PRN H ermann 00 See Nurse's Notes, Start date: 02/22/13 22:00:00, 250 ml albumin 2013-0 No Ike 12.5 gm, Mem oria human 5% 8-30 Danny 250 mL, l intravenous 03:00: Silverio Route: IV, Jesús solution 00 Drug form: INJ, ONCE, Start date: 02/22/13 22:00:00, Stop date: 02/22/13 22:00:00 Sodium 2013-0 No Ike IV, 0 Memoria Chloride 8-30 Danny ml/hr, l 0.9% IV 03:00: Silverio PRN, PRN H ermann 00 See Nurse's Notes, Start date: 02/22/13 22:00:00, 250 ml albumin 2013-0 No Ike 12.5 gm, Mem oria human 5% 8-30 Danny 250 mL, l intravenous 03:00: Silverio Route: IV, Jesús solution 00 Drug form: INJ, ONCE, Start date: 02/22/13 22:00:00, Stop date: 02/22/13 22:00:00 Sodium 2013-0 No Ike IV, 0 Memoria Chloride 8-30 Danny ml/hr, l 0.9% IV 03:00: Silverio ARIASN, PRN H ermann 00 See Nurse's Notes, Start date: 02/22/13 22:00:00, 250 ml Lovenox 2013-0 No Liana 40 mg, 0.4 M emoria 8-29 Ahmed mL, Route: l 23:00: Badar SUB-Q, [place] Drug form: INJ, [id number], Start date: 02/22/13 18:00:00, Duration: 30 day, Stop date: 03/23/13 18:00:00 Lovenox 2013-0 No Liana 40 mg, 0.4 M emoria 8-29 Ahmed mL, Route: l 23:00: Badar SUB-Q, Jesús 00 Drug form: INJ, [id number], Start date: 02/22/13 18:00:00, Duration: 30 day, Stop date: 03/23/13 18:00:00 Lovenox 2013-0 No Liana 40 mg, 0.4 M emoria 8-29 Ahmed mL, Route: l 23:00: Badar SUB-Q, [place] Drug form: INJ, [id number], Start date: 02/22/13 18:00:00, Duration: 30 day, Stop date: 03/23/13 18:00:00 Lovenox 2012-0 No Liana 40 mg, 0.4 M emoria 8-29 Ahmed mL, Route: l 23:00: Badar SUB-Q, [place] Drug form: INJ, [id number], Start date: 02/22/13 18:00:00, Duration: 30 day, Stop date: 03/23/13 18:00:00 Lovenox 2012-0 No Liana 40 mg, 0.4 M emoria - Ahmed mL, Route: l 23:00: Badar SUB-Q, [place] Drug form: INJ, [id number], Start date: 02/22/13 18:00:00, Duration: 30 day, Stop date: 03/23/13 18:00:00 Lovenox 2012-0 No Liana 40 mg, 0.4 M emoria 02-22 Ahmed mL, Route: l 23:00: Badar SUB-Q, [place] Drug form: INJ, [id number], Start date: 02/22/13 18:00:00, Duration: 30 day, Stop date: 03/23/13 18:00:00 vancomycin 2012-0 No Liana 1.25 gm, Memoria + Dextrose 02-22 Ahmed Route: l 5% in Water 18:00: Badar IVPB, Drug Jesús IV 250 mL 00 form: INJ, [id number], Dosing Weight 65, kg, Start date: 02/22/13 13:00:00, Stop date: 03/24/13 1:00:00 vancomycin 2012-0 No Liana 1.25 gm, Memoria + Dextrose - Ahmed Route: l 5% in Water 18:00: Badar IVPB, Drug [place] IV 250 mL 00 form: INJ, [id number], Dosing Weight 65, kg, Start date: 02/22/13 13:00:00, Stop date: 03/24/13 1:00:00 vancomycin 2013-0 No Liana 1.25 gm, Memoria + Dextrose 8-29 Ahmed Route: l 5% in Water 18:00: Badar IVPB, Drug Jesús IV 250 mL 00 form: INJ, [id number], Dosing Weight 65, kg, Start date: 02/22/13 13:00:00, Stop date: 03/24/13 1:00:00 vancomycin No Liana 1.25 gm, Memoria + Dextrose 8-29 Ahmed Route: l 5% in Water 18:00: Badar IVPB, Drug [place] IV 250 mL 00 form: INJ, [id number], Dosing Weight 65, kg, Start date: 02/22/13 13:00:00, Stop date: 03/24/13 1:00:00 vancomycin No Liana 1.25 gm, Memoria + Dextrose 8-29 Ahmed Route: l 5% in Water 18:00: Badar IVPB, Drug [place] IV 250 mL 00 form: INJ, [id number], Dosing Weight 65, kg, Start date: 02/22/13 13:00:00, Stop date: 03/24/13 1:00:00 vancomycin No Liana 1.25 gm, Memoria + Dextrose 8-29 Ahmed Route: l 5% in Water 18:00: Badar IVPB, Drug Jesús IV 250 mL 00 form: INJ, [id number], Dosing Weight 65, kg, Start date: 02/22/13 13:00:00, Stop date: 03/24/13 1:00:00 fentanyl No Nancy-Ye 250 mL, Mem oria 1,250 02-22 Irlanda Sameer Rate: l microgram 17:18: Titrate, Herm karina Dosing Weight 65, kg, Route: IV, Total Volume: 250, Duration: 30 day, Stop date: 03/24/13 12:17:00, Replace Every: 24 hr fentanyl No Nancy-Ye 250 mL, Mem oria 1,250 02-22 Irlanda Sameer Rate: l microgram 17:18: Titrate, Herm karina Dosing Weight 65, kg, Route: IV, Total Volume: 250, Duration: 30 day, Stop date: 03/24/13 12:17:00, Replace Every: 24 hr fentanyl 2012-0 No Nancy-Ye 250 mL, Mem oria 1,250 8-29 Irlanda Sameer Rate: l microgram 17:18: Titrate, Herm karina 00 Dosing Weight 65, kg, Route: IV, Total Volume: 250, Duration: 30 day, Stop date: 03/24/13 12:17:00, Replace Every: 24 hr fentanyl 2012-0 No Nancy-Ye 250 mL, Mem oria 1,250 8-29 Irlanda Sameer Rate: l microgram 17:18: Titrate, Herm karina 00 Dosing Weight 65, kg, Route: IV, Total Volume: 250, Duration: 30 day, Stop date: 03/24/13 12:17:00, Replace Every: 24 hr fentanyl 0 No Nancy-Ye 250 mL, Mem oria 1,250 8-29 Irlanda Sameer Rate: l microgram 17:18: Titrate, Herm karina Dosing Weight 65, kg, Route: IV, Total Volume: 250, Duration: 30 day, Stop date: 03/24/13 12:17:00, Replace Every: 24 hr fentanyl 0 No Nancy-Ye 250 mL, Mem oria 1,250 8-29 Irlanda Sameer Rate: l microgram 17:18: Titrate, Herm karina Dosing Weight 65, kg, Route: IV, Total Volume: 250, Duration: 30 day, Stop date: 03/24/13 12:17:00, Replace Every: 24 hr sodium 2012-0 No Liana 10 mmol, Hossein diana phosphate + 8-29 Ahmed 3.33 mL, l Sodium 17:: Rob Route: [place] Chloride 00 IVPB, 0.9% IV 250 ONCE, mL Dosing Weight 65, kg, PRN Abnormal Lab Result, Start date: 02/22/13 12:09:00, Stop date: 03/24/13 12:08:00 sodium 2012-0 No Liana 10 mmol, Hossein diana phosphate + 8-29 Ahmed 3.33 mL, l Sodium 17:: Brianar Route: [place] Chloride 00 IVPB, 0.9% IV 250 ONCE, mL Dosing Weight 65, kg, PRN Abnormal Lab Result, Start date: 02/22/13 12:09:00, Stop date: 03/24/13 12:08:00 sodium 2012-0 No Liana 10 mmol, Hossein diana phosphate + 8-29 Ahmed 3.33 mL, l Sodium 17:09: Badar Route: [place] Chloride 00 IVPB, 0.9% IV 250 ONCE, mL Dosing Weight 65, kg, PRN Abnormal Lab Result, Start date: 02/22/13 12:09:00, Stop date: 03/24/13 12:08:00 sodium 2013-0 No Liana 10 mmol, Hossein diana phosphate + 8-29 Ahmed 3.33 mL, l Sodium 17:09: Badar Route: [place] Chloride 00 IVPB, 0.9% IV 250 ONCE, mL Dosing Weight 65, kg, PRN Abnormal Lab Result, Start date: 02/22/13 12:09:00, Stop date: 03/24/13 12:08:00 sodium 2012-0 No Liana 10 mmol, Hossein diana phosphate + 8-29 Ahmed 3.33 mL, l Sodium 17:09: Badar Route: [place] Chloride 00 IVPB, 0.9% IV 250 ONCE, mL Dosing Weight 65, kg, PRN Abnormal Lab Result, Start date: 02/22/13 12:09:00, Stop date: 03/24/13 12:08:00 sodium 2012-0 No Liana 10 mmol, Hossein diana phosphate + 8-29 Ahmed 3.33 mL, l Sodium 17:09: Badar Route: [place] Chloride 00 IVPB, 0.9% IV 250 ONCE, mL Dosing Weight 65, kg, PRN Abnormal Lab Result, Start date: 02/22/13 12:09:00, Stop date: 03/24/13 12:08:00 Lovenox 2013-0 No Liana 70 mg, 0.7 M emoria 8-29 Ahmed mL, Route: l 17:08: Badar SUB-Q, [place] 00 Drug form: INJ, [id number], Dosing Weight 65, kg, Priority: NOW, Start date: 02/22/13 12:08:00, Duration: 30 day, Stop date: 03/24/13 0:08:00 Lovenox 2013-0 No Liana 70 mg, 0.7 M emoria 8-29 Ahmed mL, Route: l 17:08: Badar SUB-Q, [place] 00 Drug form: INJ, [id number], Dosing Weight 65, kg, Priority: NOW, Start date: 02/22/13 12:08:00, Duration: 30 day, Stop date: 03/24/13 0:08:00 Lovenox 2012-0 No Liana 70 mg, 0.7 M emoria -29 Ahmed mL, Route: l 17:08: Badar SUB-Q, [place] Drug form: INJ, [id number], Dosing Weight 65, kg, Priority: NOW, Start date: 02/22/13 12:08:00, Duration: 30 day, Stop date: 03/24/13 0:08:00 Lovenox 2012-0 No Liana 70 mg, 0.7 M emoria 02-22 Ahmed mL, Route: l 17:08: Badar SUB-Q, [place] 00 Drug form: INJ, [id number], Dosing Weight 65, kg, Priority: NOW, Start date: 02/22/13 12:08:00, Duration: 30 day, Stop date: 03/24/13 0:08:00 Lovenox 2012-0 No Liana 70 mg, 0.7 M emoria 02-22 Ahmed mL, Route: l 17:08: Badar SUB-Q, [place] 00 Drug form: INJ, [id number], Dosing Weight 65, kg, Priority: NOW, Start date: 02/22/13 12:08:00, Duration: 30 day, Stop date: 03/24/13 0:08:00 Lovenox 2012-0 No Liana 70 mg, 0.7 M emoria 02-22 Ahmed mL, Route: l 17:08: Badar SUB-Q, [place] Drug form: INJ, [id number], Dosing Weight 65, kg, Priority: NOW, Start [...] 12:07:00, Stop date: 03/24/13 4:07:00 Zosyn + 2013-0 No Liana 3.375 gm, Me moria Dextrose 5% 8-29 Ahmed Route: l in Water IV 17:07: Badar IVPB, Drug Jesús 100 mL 00 form: PDR/INJ, [id number], Dosing Weight 65, kg, CrCl >= 20 ml/min infuse over 4 hours, Priority: NOW, Start date: 02/22/13 12:07:00, Stop date: 03/24/13 4:07:00 Zosyn + 2013-0 No Liana 3.375 gm, Me moria Dextrose 5% 8-29 Ahmed Route: l in Water IV 17:07: Badar IVPB, Drug Jesús 100 mL 00 form: PDR/INJ, [id number], Dosing Weight 65, kg, CrCl >= 20 ml/min infuse over 4 hours, Priority: NOW, Start date: 02/22/13 12:07:00, Stop date: 03/24/13 4:07:00 Zosyn + 2013-0 No Liana 3.375 gm, Me moria Dextrose 5% 8-29 Ahmed Route: l in Water IV 17:07: Badar IVPB, Drug Jesús 100 mL 00 form: PDR/INJ, [id number], Dosing Weight 65, kg, CrCl >= 20 ml/min infuse over 4 hours, Priority: NOW, Start date: 02/22/13 12:07:00, Stop date: 03/24/13 4:07:00 Zosyn + 2013-0 No Liana 3.375 gm, Me moria Dextrose 5% 8-29 Ahmed Route: l in Water IV 17:07: Badar IVPB, Drug Jesús 100 mL 00 form: PDR/INJ, [id number], Dosing Weight 65, kg, CrCl >= 20 ml/min infuse over 4 hours, Priority: NOW, Start date: 02/22/13 12:07:00, Stop date: 03/24/13 4:07:00 Zosyn + 2013-0 No Liana 3.375 gm, Me moria Dextrose 5% 02-22 Ahmed Route: l in Water IV 17:07: Badar IVPB, Drug Jesús 100 mL 00 form: PDR/INJ, [id number], Dosing Weight 65, kg, CrCl >= 20 ml/min infuse over 4 hours, Priority: NOW, Start date: 02/22/13 12:07:00, Stop date: 03/24/13 4:07:00 Norvasc No Jeff 5 mg, 1 Memor ia 8-29 Barbara tab, l 16:24: Jr Route: PO, [place] 00 Drug form: TAB, Daily, Start date: [...] Barbara tab, l 16:24: Jr Route: PO, [place] 00 Drug form: TAB, Daily, Start date: 02/22/13 11:24:00, Duration: 30 day, Stop date: 03/24/13 9:00:00 Norvasc 0 No Jeff 5 mg, 1 Memor ia 8-29 Barbara tab, l 16:24: Jr Route: PO, [place] 00 Drug form: TAB, Daily, Start date: 02/22/13 11:24:00, Duration: 30 day, Stop date: 03/24/13 9:00:00 Norvasc 0 No Jeff 5 mg, 1 Memor ia 8-29 Barbara tab, l 16:24: Jr Route: PO, [place] 00 Drug form: TAB, Daily, Start date: 02/22/13 11:24:00, Duration: 30 day, Stop date: 03/24/13 9:00:00 Norvasc 0 No Jeff 5 mg, 1 Memor ia 8-29 Barbara tab, l 16:24: Jr Route: PO, Jesús 00 Drug form: TAB, Daily, Start date: 02/22/13 11:24:00, Duration: 30 day, Stop date: 03/24/13 9:00:00 aspirin 2012- No Ike 81 mg, 1 Mem oria 8-29 Dnany tab, l 14:00: Islverio Route: PO, He rm Drug form: CHEWTAB, Daily, Dosing Weight 65, kg, Start date: 02/22/13 9:00:00, Duration: 30 day, Stop date: 03/23/13 9:00:00 Fish Oil 2012- No Ike Route: PO, Memoria 8-29 Danny BID, l 14:00: Silverio Dosing Kishore n Weight 65, kg, Start date: 02/22/13 9:00:00, Duration: 30 day, Stop date: 03/23/13 17:00:00 levothyroxi No Ike 50 Mem oria ne 8-29 Danny microgram, l 14:00: Silverio 1 tab, Kishore n 00 Route: PO, Drug form: TAB, Daily, Dosing Weight 65, kg, Start date: 02/22/13 9:00:00, Duration: 30 day, Stop date: 03/23/13 9:00:00 dipyridamol 2012- No Ike 75 mg, 1 Memoria e [...] Route: PO, He rm Drug form: TAB, Daily, Dosing Weight 65, kg, Start date: 02/22/13 9:00:00, Duration: 30 day, Stop date: 03/23/13 9:00:00 cilostazol 2012-0 No Ike 100 mg, 2 Memoria 8-29 Danny tab, l 14:00: Silverio [...] Oil 2012-0 No Ike Route: PO, Memoria -29 Danny BID, l 14:00: Silverio Dosing Kishore n Weight 65, kg, Start date: 02/22/13 9:00:00, Duration: 30 day, Stop date: 03/23/13 17:00:00 levothyroxi 0 No Ike 50 Mem oria ne - [...] 2012-0 No Ike 100 mg, 2 Memoria 8-29 Danny tab, l 14:00: Silverio Route: PO, He rm Drug form: TAB, BID, Dosing Weight 65, kg, Start date: 02/22/13 9:00:00, Duration: 30 day, Stop date: 03/23/13 17:00:00 alendronate 0 No Ike 10 mg, 1 Memoria 8-29 Danny tab, l [...] 2012-0 No Ike 50 Mem oria ne 8-29 Danny microgram, l 14:00: Silverio 1 tab, [...] 2012-0 No Ike 100 mg, 2 Memoria 8-29 Danny tab, l 14:00: Silverio Route: PO, rm Drug form: TAB, BID, Dosing Weight 65, kg, Start date: 02/22/13 9:00:00, Duration: 30 day, Stop date: 03/23/13 17:00:00 alendronate 2012-0 No Ike 10 mg, 1 Memoria 8-29 Danny tab, l [...] Oil 2012-0 No Ike Route: PO, Memoria 8- Danny BID, l 14:00: Silverio Dosing Kishore [...] Danny tab, l 14:00: Silverio Route: PO, [place] rm Drug form: TAB, BID, Dosing Weight 65, kg, Start date: 02/22/13 9:00:00, Duration: 30 day, Stop date: 03/23/13 17:00:00 Vitamin C 2012-0 No Ike Route: PO, Memoria 8- Danny BID, l 14:00: Silverio Dosing Kishore n Weight 65, kg, Start date: 02/22/13 9:00:00, Duration: 30 day, Stop date: 03/23/13 17:00:00 clopidogrel 2012-0 No Ike 75 mg, 1 Memoria - Danny tab, l 14:00: Silverio Route: PO, [place] rm Drug form: TAB, Daily, Dosing Weight 65, kg, Start date: 02/22/13 9:00:00, Duration: 30 day, Stop date: 03/23/13 9:00:00 cilostazol 2012-0 No Ike 100 mg, 2 Memoria - Danny tab, l 14:00: Sliverio Route: PO, [place] rm Drug form: TAB, BID, Dosing Weight 65, kg, Start date: 02/22/13 9:00:00, Duration: 30 day, Stop date: 03/23/13 17:00:00 alendronate 2012-0 No Ike 10 mg, 1 Memoria 8-29 Danny tab, l [...] day, Stop date: 03/23/13 9:00:00 Fish Oil 2012- No Ike Route: PO, Memoria 8-29 Danny BID, l 14:00: Silverio Dosing Kishore n Weight 65, kg, Start date: 02/22/13 9:00:00, Duration: 30 day, Stop date: 03/23/13 17:00:00 levothyroxi No Ike 50 Mem oria ne 8-29 Danny microgram, l 14:00: Silverio 1 tab, Kishore n 00 Route: PO, Drug form: TAB, Daily, Dosing Weight 65, kg, Start date: 02/22/13 9:00:00, Duration: 30 day, Stop date: 03/23/13 9:00:00 dipyridamol No Ike 75 mg, 1 Memoria e 8-29 Danny tab, l 14:00: Silverio Route: PO, [facility] Drug form: TAB, BID, Dosing Weight 65, [...] 30 day, Stop date: 03/23/13 17:00:00 alendronate 2012- No Ike 10 mg, 1 Memoria -29 Danny tab, l 14:00: Silverio Route: PO, rm Drug form: TAB, Daily, Dosing Weight 65, kg, Start date: 02/22/13 9:00:00, Duration: 30 day, Stop date: 03/23/13 9:00:00 aspirin 2012- No Ike 81 mg, 1 Mem oria - Danny tab, l 14:00: Silverio Route: PO, [facility] Drug form: CHEWTAB, Daily, Dosing Weight 65, kg, Start date: 02/22/13 9:00:00, Duration: 30 day, Stop date: 03/23/13 9:00:00 Fish Oil 2012-0 No Ike Route: PO, Memoria - Danny BID, l 14:00: Silverio Dosing Kishore n 00 Weight 65, kg, Start date: 02/22/13 9:00:00, Duration: 30 day, Stop date: 03/23/13 17:00:00 levothyroxi No Ike 50 Mem oria ne - [...] day, Stop date: 03/23/13 17:00:00 Vitamin C 2012- No Ike Route: PO, Memoria 02-22 Danny BID, l 14:00: Silverio Dosing Kishore n 00 Weight 65, kg, Start date: 02/22/13 9:00:00, Duration: 30 day, Stop date: 03/23/13 17:00:00 clopidogrel 2012-0 No Ike 75 mg, 1 Memoria 02-22 Danny tab, l 14:00: Silverio Route: PO, rmann 00 Drug form: TAB, Daily, Dosing Weight 65, kg, Start date: 02/22/13 9:00:00, Duration: 30 day, Stop date: 03/23/13 9:00:00 cilostazol 2012- No Ike 100 mg, 2 Memoria - Danny tab, l 14:00: Silverio Route: PO, He rmann 00 Drug form: TAB, BID, Dosing Weight 65, kg, Start date: 02/22/13 9:00:00, Duration: 30 day, Stop date: 03/23/13 17:00:00 alendronate No Ike 10 mg, 1 Memoria 02-22 Danny tab, l 14:00: Silverio Route: PO, rmann Drug form: TAB, Daily, Dosing Weight 65, kg, Start date: 02/22/13 9:00:00, Duration: 30 day, Stop date: 03/23/13 9:00:00 Zinacef + No Liana 1.5 gm, Me moria Sodium 02-22 Ahmed Route: l Chloride 05:00: Brianar IVPB, Jesús 0.9% IV 100 00 [id number], [...] Sodium 02-22 Ahmed Route: l Chloride 05:00: Rob IVPB, Jesús 0.9% IV 100 00 [id number], mL Start date: 02/22/13 0:00:00, Duration: 1 day, Stop date: 02/22/13 16:00:00 chlorhexidi No Ike 15 mL, M emoria ne topical 02-22 Danny Route: l 0.12% 05:00: Silverio S&PRANEETH, Herm karina liquid 00 Q6H, Drug form: LIQ, Start date: 02/22/13 0:00:00, Duration: 30 day, Stop date: 03/23/13 18:00:00 Pulmicort No Ike 0.5 mg, 2 Memoria Respules 02-22 Danny mL, Route: l 05:00: Silverio SANCHEZ, Drug Her mckee 00 form: SOLN, Q6H, Start date: 02/22/13 0:00:00, Duration: 30 day, Stop date: 03/23/13 18:00:00 DuoNeb 0 No Liana 3 mL, Memoria inhalation 02-22 Ahmed Route: l solution 05:00: Rob SANCHEZ, Drug Her mckee 00 Form: SOLN, Q6H, Start date: 02/22/13 0:00:00, Duration: 30 day, Stop date: 03/23/13 18:00:00 Zinacef + 0 No Liana 1.5 gm, Me moria Sodium [...] No Ike 0.5 mg, 2 Memoria Respules 8-29 Danny mL, Route: l 05:00: Silverio SANCHEZ, Drug Her mckee 00 form: SOLN, Q6H, Start date: 02/22/13 0:00:00, Duration: 30 day, Stop date: 03/23/13 18:00:00 DuoNeb No Liana 3 mL, Memoria inhalation 02-22 Ahmed Route: l solution 05:00: Rob SANCHEZ, Drug Her mckee 00 Form: SOLN, Q6H, Start date: 02/22/13 0:00:00, Duration: 30 day, Stop date: 03/23/13 18:00:00 Zinacef + No Liana 1.5 gm, Me moria Sodium 02-22 Ahmed Route: l Chloride 05:00: Rob IVPB, Jesús 0.9% IV 100 00 [id number], mL Start date: 02/22/13 0:00:00, Duration: 1 day, Stop date: 02/22/13 16:00:00 chlorhexidi No Ike 15 mL, M emoria ne topical 02-22 Danny Route: l 0.12% 05:00: Silverio S&PRANEETH, Herm karina liquid 00 Q6H, Drug form: LIQ, Start date: 02/22/13 0:00:00, Duration: 30 day, Stop date: 03/23/13 18:00:00 Pulmicort 2012-0 No Ike 0.5 mg, 2 Memoria Respules - Danny mL, Route: l 05:00: Silverio SANCHEZ, Drug Her mckee 00 form: SOLN, Q6H, Start date: 02/22/13 0:00:00, Duration: 30 day, Stop date: 03/23/13 18:00:00 DuoNeb 0 No Liana 3 mL, Memoria inhalation 02-22 Ahmed Route: l solution 05:00: Rob SANCHEZ, Drug Her mckee 00 Form: SOLN, Q6H, Start date: 02/22/13 0:00:00, Duration: 30 day, Stop date: 03/23/13 18:00:00 Zinacef + 0 No Liaan 1.5 gm, Me moria Sodium 02-22 Ahmed Route: l Chloride 05:00: Badar IVPB, [place] 0.9% IV 100 00 [id number], mL Start date: 02/22/13 0:00:00, Duration: 1 day, Stop date: 02/22/13 16:00:00 chlorhexidi No Ike 15 mL, M emoria ne topical 02-22 Danny Route: l 0.12% 05:00: Silverio S&MONSET, Herm karina liquid 00 Q6H, Drug form: [...] 02-22 Ahmed Route: l solution 05:00: Rob NEB, Drug Her mckee 00 Form: SOLN, Q6H, Start date: 02/22/13 0:00:00, Duration: 30 day, Stop date: 03/23/13 18:00:00 propofol 10 No Liana IV, Start Memoria [...] 10 No Liana IV, Start Memoria mg/ml 8-29 Ahmed date: l (titrate) 03:29: Badar 02/21/13 Her mckee 1,000 mg 00 22:29:00, Duration: 30, 100 ml, 65 propofol 10 No Liana IV, Start Memoria mg/ml 8- Ahmed date: l (titrate) 03:29: Badar 02/21/13 Her mckee 1,000 mg 00 22:29:00, Duration: 30, 100 ml, 65 propofol 10 No Liana IV, Start Memoria mg/ml 8- Ahmed date: l (titrate) 03:29: Badar 02/21/13 Her mckee 1,000 mg 00 22:29:00, Duration: 30, 100 ml, 65 Sublimaze No Liana 25 Memor ia 8-29 Ahmed microgram, l 02:46: Badar 0.5 mL, Jesús 00 Route: IV, Drug form: INJ, Q1H, PRN Pain, Start date: 02/21/13 21:46:00, Duration: 30 day, Stop date: 03/23/13 21:45:00 Sublimaze No Liana 25 Memor ia 8-29 Ahmed microgram, l 02:46: Badar 0.5 mL, [place] 00 Route: IV, Drug form: INJ, Q1H, PRN Pain, Start date: 02/21/13 21:46:00, Duration: 30 day, Stop date: 03/23/13 21:45:00 Sublimaze No Liana 25 Memor ia 8-29 Ahmed microgram, l 02:46: Badar 0.5 mL, Jesús 00 Route: IV, Drug form: INJ, Q1H, PRN Pain, Start date: 02/21/13 21:46:00, Duration: 30 day, Stop date: 03/23/13 21:45:00 Sublimaze No Liana 25 Memor ia 8-29 Ahmed microgram, l 02:46: Badar 0.5 mL, Jesús 00 Route: IV, Drug form: INJ, Q1H, PRN Pain, Start date: 02/21/13 21:46:00, Duration: 30 day, Stop date: 03/23/13 21:45:00 Sublimaze 2012-0 No Liana 25 Memor ia - Ahmed microgram, l 02:46: Badar 0.5 mL, [place] 00 Route: IV, Drug form: INJ, Q1H, PRN Pain, Start date: 02/21/13 21:46:00, Duration: 30 day, Stop date: 03/23/13 21:45:00 Sublimaze 2012-0 No Liana 25 Memor ia 02-22 Ahmed microgram, l 02:46: Badar 0.5 mL, Jesús 00 Route: IV, Drug form: INJ, Q1H, PRN Pain, Start date: 02/21/13 21:46:00, Duration: 30 day, Stop date: 03/23/13 21:45:00 Dextrose No Devan 50 mL, Mem oria 50% in 02-22. Evert Route: l Water IV 02:43: IVP, Start Her mckee date: 02/21/13 21:43:00, Duration: 30 day, Stop date: 03/23/13 21:42:00, PRN Blood Glucose Results Dextrose No Devan 50 mL, Mem oria 50% in 02-22 Evert Route: l Water IV 02:43: IVP, Start Her mckee 00 date: 02/21/13 21:43:00, Duration: 30 day, Stop date: 03/23/13 21:42:00, PRN Blood Glucose Results Dextrose No Devan 50 mL, Mem oria 50% in 02-22. Evert Route: l Water IV 02:43: IVP, Start Her mckee 00 date: 02/21/13 21:43:00, Duration: 30 day, Stop date: 03/23/13 21:42:00, PRN Blood Glucose Results Dextrose No Devan 50 mL, Mem oria 50% in 02-22. Evert Route: l Water IV 02:43: IVP, Start Her mckee 00 date: 02/21/13 21:43:00, Duration: 30 day, Stop date: 03/23/13 21:42:00, PRN Blood Glucose Results Dextrose No Devan 50 mL, Mem oria 50% in 02-22 A. Evert Route: l Water IV 02:43: IVP, Start Her mckee 00 date: 02/21/13 21:43:00, Duration: 30 day, Stop date: 03/23/13 21:42:00, PRN Blood Glucose Results Dextrose No Devan 50 mL, Mem oria [...] Devan 99 mL, Hossein diana regular 100 02-22 A. Evert Rate: l unit + 02:42: titrate, Jesús Sodium 00 Route: IV, Chloride Dosing 0.9% IV 99 Weight 65 mL kg, Total Volume: 100, Start date: 02/21/13 21:42:00, Duration: 30 day, Stop date: 03/23/13 21:41:00 Insulin 2012- No Devan 99 mL, Hossein diana regular 100 02-22. Evert Rate: l unit + 02:42: titrate, [place] Sodium 00 Route: IV, Chloride Dosing 0.9% IV 99 Weight 65 mL kg, Total Volume: 100, Start date: 02/21/13 21:42:00, Duration: 30 day, Stop date: 03/23/13 21:41:00 Insulin 2012-0 No Devan 99 mL, Hossein diana regular 100 02-22 A. Evert Rate: l unit + 02:42: titrate, [place] Sodium 00 Route: IV, Chloride Dosing 0.9% IV 99 Weight 65 mL kg, Total Volume: 100, Start date: 02/21/13 21:42:00, Duration: 30 day, Stop date: 03/23/13 21:41:00 Insulin 2012-0 No Devan 99 mL, Hossein diana regular 100 8 A. Loyd Rate: l unit + 02:42: titrate, Jesús Sodium 00 Route: IV, Chloride Dosing 0.9% IV 99 Weight 65 mL kg, Total Volume: 100, Start date: 02/21/13 21:42:00, Duration: 30 day, Stop date: 03/23/13 21:41:00 Insulin 2012-0 No Devan 99 mL, Hossein diana regular 100 8- A. Loyd Rate: l unit + 02:42: titrate, [place] Sodium 00 Route: IV, Chloride Dosing 0.9% IV 99 Weight 65 mL kg, Total Volume: 100, Start date: 02/21/13 21:42:00, Duration: 30 day, Stop date: 03/23/13 21:41:00 simvastatin 2012-0 No Ike 10 mg, 1 Memoria 02-22 Danny tab, l 02:00: Silverio Route: PO, He rmann 00 Drug form: TAB, Bedtime, Dosing Weight 65, kg, Start date: 02/21/13 21:00:00, Duration: 30 day, Stop date: 03/22/13 21:00:00 Protonix 2012-0 No Franky 40 mg, Memor ia 02-22 Route: l 02:00: IVP, Drug Jesús 00 form: INJ, Before Dinner, Start date: 02/21/13 21:00:00, Duration: 30 day, Stop date: 03/23/13 16:30:00 simvastatin 2012-0 No Ike 10 mg, 1 Memoria - Danny tab, l 02:00: Silverio Route: PO, He rmann 00 Drug form: TAB, Bedtime, Dosing Weight 65, kg, Start date: 02/21/13 21:00:00, Duration: 30 day, Stop date: 03/22/13 21:00:00 Protonix 2012-0 No Franky 40 mg, Memor ia 02-22 Route: l 02:00: IVP, Drug Jesús 00 form: INJ, Before Dinner, Start date: 02/21/13 21:00:00, Duration: 30 day, Stop date: 03/23/13 16:30:00 simvastatin 2012-0 No Ike 10 mg, 1 Memoria 8-29 Danny tab, l 02:00: Silverio Route: PO, He rmann Drug form: TAB, Bedtime, Dosing Weight 65, kg, Start date: 02/21/13 21:00:00, Duration: 30 day, Stop date: 03/22/13 21:00:00 Protonix 2012-0 No Franky 40 mg, Memor ia 02-22s Route: l 02:00: IVP, Drug [place] 00 form: INJ, Before Dinner, Start date: 02/21/13 21:00:00, Duration: 30 day, Stop date: 03/23/13 16:30:00 simvastatin 2012-0 No Ike 10 mg, 1 Memoria 8-29 Danny tab, l 02:00: Silverio Route: PO, He rm Drug form: TAB, Bedtime, Dosing Weight 65, kg, Start date: 02/21/13 21:00:00, Duration: 30 day, Stop date: 03/22/13 21:00:00 Protonix 2012-0 No Franky 40 mg, Memor ia 02-22s Route: l 02:00: IVP, Drug Jesús 00 form: INJ, Before Dinner, Start date: 02/21/13 21:00:00, Duration: 30 day, Stop date: 03/23/13 16:30:00 simvastatin 2012-0 No Ike 10 mg, 1 Memoria 8-29 Danny tab, l 02:00: Silverio Route: PO, Jonas rm Drug form: TAB, Bedtime, Dosing Weight 65, kg, Start date: 02/21/13 21:00:00, Duration: 30 day, Stop date: 03/22/13 21:00:00 Protonix 2012-0 No Franky 40 mg, Memor ia 02-22s Route: l 02:00: IVP, Drug [place] 00 form: INJ, Before Dinner, Start date: 02/21/13 21:00:00, Duration: 30 day, Stop date: 03/23/13 16:30:00 simvastatin 2012-0 No Ike 10 mg, 1 Memoria 8-29 Danny tab, l 02:00: Silverio Route: PO, He rmann 00 Drug form: TAB, Bedtime, Dosing Weight 65, kg, Start date: 02/21/13 21:00:00, Duration: 30 day, Stop date: 03/22/13 21:00:00 Protonix 2012- No Franky 40 mg, Memor ia 02-22s Route: l 02:00: IVP, Drug form: INJ, Before Dinner, Start date: 02/21/13 21:00:00, Duration: 30 day, Stop date: 03/23/13 16:30:00 Sublimaze No Franky 25 Memori a 8-29 [place] microgram, l 01:06: 0.5 mL, Route: IV, Drug form: INJ, ONCE, Start date: 02/21/13 20:06:00, Stop date: 02/21/13 20:06:00 Sublimaze No Franky 25 Memori a 8-29 [place] microgram, l 01:06: 0.5 mL, Route: IV, Drug form: INJ, ONCE, Start date: 02/21/13 20:06:00, Stop date: 02/21/13 20:06:00 Sublimaze No Franky 25 Memori a 8-29 [place] microgram, l 01:06: 0.5 mL, Route: IV, Drug form: INJ, ONCE, Start date: 02/21/13 20:06:00, Stop date: 02/21/13 20:06:00 Sublimaze No Franky 25 Memori a 8-29 [place] microgram, l 01:06: 0.5 mL, Route: IV, Drug form: INJ, ONCE, Start date: 02/21/13 20:06:00, Stop date: 02/21/13 20:06:00 Sublimaze No Franky 25 Memori a 8-29 [place] microgram, l 01:06: 0.5 mL, Route: IV, Drug form: INJ, ONCE, Start date: 02/21/13 20:06:00, Stop date: 02/21/13 20:06:00 Sublimaze No Franky 25 Memori a 8-29 [place] microgram, l 01:06: 0.5 mL, Jesús 00 Route: IV, Drug form: INJ, ONCE, Start date: 02/21/13 20:06:00, Stop date: 02/21/13 20:06:00 acetaminoph No Ike Route: PO, Memoria 02-21 Danny Drug form: l 23:16: Silverio [...] fever acetaminoph No Ike Route: PO, Memoria 02-21 Danny Drug form: l 23:16: Silverio TAB, Q4H, Her mckee 00 Dosing Weight 65, kg, PRN Pain/Fever , Start date: 02/21/13 18:16:00, Stop date: 03/23/13 18:15:00, as needed for pain or fever acetaminoph No Ike Route: PO, Memoria 02-21 Danny Drug form: l 23:16: Silverio TAB, Q4H, Her mckee 00 Dosing Weight 65, kg, PRN Pain/Fever , Start date: 02/21/13 18:16:00, Stop date: 03/23/13 18:15:00, as needed for pain or fever acetaminoph No Ike Route: PO, Memoria 02-21 Danny Drug form: l 23:16: Silverio TAB, Q4H, Her mckee 00 Dosing Weight 65, kg, PRN Pain/Fever , Start date: 02/21/13 18:16:00, Stop date: 03/23/13 18:15:00, as needed for pain or fever acetaminoph No Ike Route: PO, Memoria 02-21 Danny Drug form: l 23:16: Silverio TAB, Q4H, Her mckee 00 Dosing Weight 65, kg, PRN Pain/Fever , Start date: 02/21/13 18:16:00, Stop date: 03/23/13 18:15:00, as needed for pain or fever Xopenex 2012-0 No Ike 1.25 mg, 3 M emoria 8-28 Danny mL, Route: l 23:00: Silverio SANCHEZ, Drug Her mc[place] 00 form: REFUGIO BUTLER, Start date: 02/21/13 18:00:00, Duration: 1 day, Stop date: 02/22/13 17:59:00 Xopenex 2012-0 No Ike 1.25 mg, 3 M emoria 8-28 Danny mL, Route: l 23:00: Silverio SANCHEZ, Drug Her mckee 00 form: REFUGIO BUTLER, Start date: 02/21/13 18:00:00, Duration: 1 day, Stop date: 02/22/13 17:59:00 Xopenex 2012-0 No Ike 1.25 mg, 3 M emoria 8-28 Danny mL, Route: l 23:00: Silverio SANCHEZ, Drug Her mckee 00 form: REFUGIO BUTLER, Start date: 02/21/13 18:00:00, Duration: 1 day, Stop date: 02/22/13 17:59:00 Xopenex 2012-0 No Ike 1.25 mg, 3 M emoria 8-28 Danny mL, Route: l 23:00: Silverio SANCHEZ, Drug Her mckee 00 form: REFUGIO BUTLER, Start date: 02/21/13 18:00:00, Duration: 1 day, Stop date: 02/22/13 17:59:00 Xopenex 2012-0 No Ike 1.25 mg, 3 M emoria 8-28 Danny mL, Route: l 23:00: Silverio SANCHEZ, Drug Her mckee 00 form: REFUGIO BUTLER, Start date: 02/21/13 18:00:00, Duration: 1 day, Stop date: 02/22/13 17:59:00 Xopenex 2012-0 No Ike 1.25 mg, 3 M emoria 8-28 Danny mL, Route: l 23:00: Silverio SANCHEZ, Drug Her mckee 00 form: REFUGIO BUTLER, Start date: 02/21/13 18:00:00, Duration: 1 day, Stop date: 02/22/13 17:59:00 Cordarone 2012-0 No Nancy-Ye 482 mL, Me moria 900 mg + 02-21 Irlanda Sameer Rate: l Dextrose 5% 22:54: titrate, He [...] Stop date: 03/23/13 17:53:00 milrinone 2012-0 No Nnacy-Ye IV, Start Memoria in D5W 02-21 Irlanda Sameer date: l Premix 20 22:54: 02/21/13 Herm karina mg 00 17:54:00, Duration: 30, 100 ml, 65 Cordarone 0 No Nancy-Ye 482 mL, Me moria 900 mg + 02-21 Irlanda Sameer Rate: l Dextrose 5% 22:54: titrate, He [...] 17:54:00, Duration: 30, 100 ml, 65 Cordarone 0 No Nancy-Ye 482 mL, Me moria 900 mg + 02-21 Irlanda Sameer Rate: l Dextrose 5% 22:54: titrate, He [...] 17:54:00, Duration: 30, 100 ml, 65 Cordarone 0 No Nancy-Ye 482 mL, Me moria 900 mg + 02-21 Irlanda Sameer Rate: l Dextrose 5% 22:54: titrate, He [...] 17:54:00, Duration: 30, 100 ml, 65 Cordarone 0 No Nancy-Ye 482 mL, Me moria 900 mg + 02-21 Irlanda Sameer Rate: l Dextrose 5% 22:54: titrate, He [...] 17:54:00, Duration: 30, 100 ml, 65 Cordarone 0 No Nancy-Ye 482 mL, Me moria 900 mg + 02-21 Irlanda Sameer Rate: l Dextrose 5% 22:54: titrate, He [...] 17:54:00, Duration: 30, 100 ml, 65 DOBUTamine 2012-0 No Nancy-Ye IV, Start Memoria in D5W 02-21 Irlanda Sameer date: l Premix 22:53: 02/21/13 [place] 1,000 mg 00 17:53:00, Duration: 30, 250 [...] 02-21 Irlanda Sameer date: l 22:53: 02/21/13 [place] 00 17:53:00, 200 ml, 65 DOBUTamine No [...] Sameer mL, Route: l 22:53: IV, Drug [place] 00 form: INJ, Dosing Weight 65, kg, [...] 02-21 Irlanda Sameer date: l 22:53: 02/21/13 [place] 00 17:53:00, 200 ml, 65 DOBUTamine No Nancy-Ye IV, Start Memoria in D5W 02-21 Irlanda Sameer date: l Premix 22:53: 02/21/13 Jesús 1,000 mg 00 17:53:00, Duration: 30, 250 ml, 65 epinephrine 2013-0 No Nancy-Ye 250 mL, Memoria 5 mg [...] 02-21 Irlanda Sameer date: l 22:53: 02/21/13 [place] 00 17:53:00, 200 ml, 65 DOBUTamine No Nancy-Ye IV, Start Memoria in D5W 02-21 Irlanda Sameer date: l Premix 22:53: 02/21/13 [place] 1,000 mg 00 17:53:00, Duration: 30, 250 [...] 02-21 Irlanda Sameer date: l 22:53: 02/21/13 [place] 00 17:53:00, 200 ml, 65 DOBUTamine No [...] Irlanda Sameer date: l Premix 22:53: 02/21/13 [place] 1,000 mg 00 17:53:00, Duration: 30, 250 ml, 65 epinephrine No Nancy-Ye 250 mL, Memoria 5 mg + 02-21 Irlanda Sameer Rate: l Dextrose 5% 22:53: titrate, He rmann in Water IV 00 Route: IV, 250 mL Dosing Weight 65 kg, Total Volume: 255, Start date: 02/21/13 17:53:00, Duration: 30 day, Stop date: 03/23/13 17:52:00 DOPamine in No Iek 800 mg, Memoria D5W Premix 02-21 Danny 250 mL, l 800 mg 22:53: Silverio Rate: Lilian nn 00 titrate, Dosing Weight 65, kg, Route: IV, Total Volume: 250, Start date: 02/21/13 17:53:00, Duration: 30 day, Stop date: 03/23/13 17:52:00, Replace Every: 24 hr nitroglycer No Nancy-Ye 50 mg, 125 Memoria in 50 mg 02-21 Irlanda Sameer mL, Route: l 22:53: IV, Drug [place] form: INJ, Dosing Weight 65, kg, Start [...] 02/21/13 Jesús 00 17:53:00, 200 ml, 65 Dulcolax No Ike 10 mg, 1 Me moria Laxative 02-21 Danny supp, l 22:52: Silverio Route: [place], He rmann Drug form: SUPP, Daily, PRN Constipati on, Start date: 02/21/13 17:52:00, Duration: 30 day, Stop date: 03/23/13 17:51:00 Zofran No Ike 8 mg, 4 Memor ia 02-21 Danny mL, Route: l 22:52: Silverio IVP, Drug Her mckee form: INJ, Q8H, PRN Nausea, Start date: 02/21/13 17:52:00, Duration: 30 day, Stop date: 03/23/13 17:51:00 Vistaril No Franky 25 mg, 0.5 M emoria 02-21 Avendaño mL, Route: l 22:52: IM, Drug [place] form: INJ, Q3H, PRN Pain, Start date: 02/21/13 17:52:00, Duration: 30 day, Stop date: 03/23/13 17:51:00 morphine No Liana 8 mg, 1 Mem oria Sulfate 02-21 Ahmed mL, Route: l 22:52: Badar IM, Drug Jesús form: INJ, Q3H, PRN Pain Score 7-10, Start date: 02/21/13 17:52:00, Duration: 30 day, Stop date: 03/23/13 17:51:00 acetaminoph No Ike 2 tab, M emoria en-hydrocod 02-21 Danny Route: PO, l one 325 22:52: Silverio Drug Form: Jesús mg-5 mg 00 TAB, Q3H, oral tablet PRN Pain Score 4-6, Start date: 02/21/13 17:52:00, Duration: 30 day, Stop date: 03/23/13 17:51:00 tramadol 50 No Ike 50 mg, 1 Memoria mg oral 02-21 Danny tab, l tablet 22:52: Silverio Route: PO, [place] 00 Drug form: TAB, Q6H, PRN Pain Score 4-6, Start date: 02/21/13 17:52:00, Duration: 30 day, Stop date: 03/23/13 17:51:00 Dulcolax No Ike 10 mg, 1 Me moria Laxative 02-21 Danny supp, l 22:52: Silverio Route: [place], He rmann 00 Drug form: SUPP, Daily, PRN Constipati on, Start date: 02/21/13 17:52:00, Duration: 30 day, Stop date: 03/23/13 17:51:00 Zofran 2012-0 No Ike 8 mg, 4 Memor ia 02-21 Danny mL, Route: l 22:52: Silverio IVP, Drug Her mc[place] form: INJ, Q8H, PRN Nausea, Start date: 02/21/13 17:52:00, Duration: 30 day, Stop date: 03/23/13 17:51:00 Vistaril 2012- No Franky 25 mg, 0.5 M emoria 02-21 Avendaño mL, Route: l 22:52: IM, Drug [place] form: INJ, Q3H, PRN Pain, Start date: 02/21/13 17:52:00, Duration: 30 day, Stop date: 03/23/13 17:51:00 morphine 2012-0 No Liana 8 mg, 1 Mem oria Sulfate 02-21 Ahmed mL, Route: l 22:52: Badar IM, Drug Jesús form: INJ, Q3H, PRN Pain Score 7-10, Start date: 02/21/13 17:52:00, Duration: 30 day, Stop date: 03/23/13 17:51:00 acetaminoph No Ike 2 tab, M emoria en-hydrocod 02-21 Danny Route: PO, l one 325 22:52: Silverio Drug Form: [place] mg-5 mg 00 TAB, Q3H, oral tablet PRN Pain Score 4-6, Start date: 02/21/13 17:52:00, Duration: 30 day, Stop date: 03/23/13 17:51:00 tramadol 50 2012-0 No Ike 50 mg, 1 Memoria mg oral 02-21 Danny tab, l tablet 22:52: Silverio Route: PO, Jesús 00 Drug form: TAB, Q6H, PRN Pain Score 4-6, Start date: 02/21/13 17:52:00, Duration: 30 day, Stop date: 03/23/13 17:51:00 Dulcolax 2012-0 No Ike 10 mg, 1 Me moria Laxative 02-21 Danny supp, l 22:52: Silverio Route: [place], He r[place] 00 Drug form: SUPP, Daily, PRN Constipati on, Start date: 02/21/13 17:52:00, Duration: 30 day, Stop date: 03/23/13 17:51:00 Zofran 2012-0 No Ike 8 mg, 4 Memor ia 02-21 Danny mL, Route: l 22:52: Silverio IVP, Drug Her mckee form: INJ, Q8H, PRN Nausea, Start date: 02/21/13 17:52:00, Duration: 30 day, Stop date: 03/23/13 17:51:00 Vistaril 2012- No Franky 25 mg, 0.5 M emoria 02-21 Avendaño mL, Route: l 22:52: IM, Drug [place] form: INJ, Q3H, PRN Pain, Start date: 02/21/13 17:52:00, Duration: 30 day, Stop date: 03/23/13 17:51:00 morphine 2012-0 No Liana 8 mg, 1 Mem oria Sulfate 02-21 Ahmed mL, Route: l 22:52: Badar IM, Drug Jesús form: INJ, Q3H, PRN Pain Score 7-10, Start date: 02/21/13 17:52:00, Duration: 30 day, Stop date: 03/23/13 17:51:00 acetaminoph No Ike 2 tab, M emoria en-hydrocod 02-21 Danny Route: PO, l one 325 22:52: Silverio Drug Form: Jesús mg-5 mg 00 TAB, Q3H, oral tablet PRN Pain Score 4-6, Start date: 02/21/13 17:52:00, Duration: 30 day, Stop date: 03/23/13 17:51:00 tramadol 50 2012-0 No Ike 50 mg, 1 Memoria mg oral 02-21 Danny tab, l tablet 22:52: Silverio Route: PO, Jesús 00 Drug form: TAB, Q6H, PRN Pain Score 4-6, Start date: 02/21/13 17:52:00, Duration: 30 day, Stop date: 03/23/13 17:51:00 Dulcolax 2012-0 No Ike 10 mg, 1 Me moria Laxative 02-21 Danny supp, l 22:52: Silverio Route: [place], He r[place] 00 Drug form: SUPP, Daily, PRN Constipati on, Start date: 02/21/13 17:52:00, Duration: 30 day, Stop date: 03/23/13 17:51:00 Zofran 2012-0 No Ike 8 mg, 4 Memor ia 02-21 Danny mL, Route: l 22:52: Silverio IVP, Drug Her mckee 00 form: INJ, Q8H, PRN Nausea, Start date: 02/21/13 17:52:00, Duration: 30 day, Stop date: 03/23/13 17:51:00 Vistaril 2012-0 No Franky 25 mg, 0.5 M emoria 02-21 Avendaño mL, Route: l 22:52: IM, Drug Jesús form: INJ, Q3H, PRN Pain, Start date: 02/21/13 17:52:00, Duration: 30 day, Stop date: 03/23/13 17:51:00 morphine 2012-0 No Liana 8 mg, 1 Mem oria Sulfate 02-21 Ahmed mL, Route: l 22:52: Badar IM, Drug Jesús 00 form: INJ, Q3H, PRN Pain Score 7-10, Start date: 02/21/13 17:52:00, Duration: 30 day, Stop date: 03/23/13 17:51:00 acetaminoph No Ike 2 tab, M emoria en-hydrocod 02-21 Danny Route: PO, l one 325 22:52: Silverio Drug Form: [place] mg-5 mg 00 TAB, Q3H, oral tablet PRN Pain Score 4-6, Start date: 02/21/13 17:52:00, Duration: 30 day, Stop date: 03/23/13 17:51:00 tramadol 50 0 No Ike 50 mg, 1 Memoria mg oral 02-21 Danny tab, l tablet 22:52: Silverio Route: PO, Jesús 00 Drug form: TAB, Q6H, PRN Pain Score 4-6, Start date: 02/21/13 17:52:00, Duration: 30 day, Stop date: 03/23/13 17:51:00 Dulcolax 2012-0 No Ike 10 mg, 1 Me moria Laxative 02-21 Danny supp, l 22:52: Silverio Route: [place], He r[place] 00 Drug form: SUPP, Daily, PRN Constipati on, Start date: 02/21/13 17:52:00, Duration: 30 day, Stop date: 03/23/13 17:51:00 Zofran 2012-0 No Ike 8 mg, 4 Memor ia 02-21 Danny mL, Route: l 22:52: Silverio IVP, Drug Her mc[place] form: INJ, Q8H, PRN Nausea, Start date: 02/21/13 17:52:00, Duration: 30 day, Stop date: 03/23/13 17:51:00 Vistaril 2012- No Franky 25 mg, 0.5 M emoria 02-21 Avendaño mL, Route: l 22:52: IM, Drug [place] form: INJ, Q3H, PRN Pain, Start date: 02/21/13 17:52:00, Duration: 30 day, Stop date: 03/23/13 17:51:00 morphine No Liana 8 mg, 1 Mem oria Sulfate 02-21 Ahmed mL, Route: l 22:52: Badar IM, Drug [place] 00 form: INJ, Q3H, PRN Pain Score 7-10, Start date: 02/21/13 17:52:00, Duration: 30 day, Stop date: 03/23/13 17:51:00 acetaminoph No Ike 2 tab, M emoria en-hydrocod 02-21 Danny Route: PO, l one 325 22:52: Silverio Drug Form: [place] mg-5 mg 00 TAB, Q3H, oral tablet PRN Pain Score 4-6, Start date: 02/21/13 17:52:00, Duration: 30 day, Stop date: 03/23/13 17:51:00 tramadol 50 No Ike 50 mg, 1 Memoria mg oral 02-21 Danny tab, l tablet 22:52: Silverio Route: PO, [place] 00 Drug form: TAB, Q6H, PRN Pain Score 4-6, Start date: 02/21/13 17:52:00, Duration: 30 day, Stop date: 03/23/13 17:51:00 Dulcolax 0 No Ike 10 mg, 1 Me moria Laxative 02-21 Danny supp, l 22:52: Silverio Route: [place], He rmann 00 Drug form: SUPP, Daily, PRN Constipati on, Start date: 02/21/13 17:52:00, Duration: 30 day, Stop date: 03/23/13 17:51:00 Zofran No Ike 8 mg, 4 Memor ia 02-21 Danny mL, Route: l 22:52: Silverio IVP, Drug Her mckee form: INJ, Q8H, PRN Nausea, Start date: 02/21/13 17:52:00, Duration: 30 day, Stop date: 03/23/13 17:51:00 Vistaril No Franky 25 mg, 0.5 M emoria 02-21 Avendaño mL, Route: l 22:52: IM, Drug [place] form: INJ, Q3H, PRN Pain, Start date: 02/21/13 17:52:00, Duration: 30 day, Stop date: 03/23/13 17:51:00 morphine No Liana 8 mg, 1 Mem oria Sulfate 02-21 Ahmed mL, Route: l 22:52: Badar IM, Drug [place] form: INJ, Q3H, PRN Pain Score 7-10, Start date: 02/21/13 17:52:00, Duration: 30 day, Stop date: 03/23/13 17:51:00 acetaminoph No Ike 2 tab, M emoria en-hydrocod 02-21 Danny Route: PO, l one 325 22:52: Silverio Drug Form: Jesús mg-5 mg 00 TAB, Q3H, oral tablet PRN Pain Score 4-6, Start date: 02/21/13 17:52:00, Duration: 30 day, Stop date: 03/23/13 17:51:00 tramadol 50 No Ike 50 mg, 1 Memoria mg oral 02-21 Danny tab, l tablet 22:52: Silverio Route: PO, [place] 00 Drug form: TAB, Q6H, PRN Pain Score 4-6, Start date: 02/21/13 17:52:00, Duration: 30 day, Stop date: 03/23/13 17:51:00 morphine No Liana 2 mg, 1 Mem oria Sulfate 02-21 Ahmed mL, Route: l 22:51: Badar IV, Drug [place] form: INJ, Q1H, PRN Pain Score 4-6, Start date: 02/21/13 17:51:00, Duration: 30 day, Stop date: 03/23/13 17:50:00 Tylenol 2012-0 No Ike 650 mg, 1 Me moria 8-28 Danny supp, l 22:51: Silverio Route: [place], He rmann Drug form: SUPP, Q4H, PRN Fever, Start date: 02/21/13 17:51:00, Duration: 30 day, Stop date: 03/23/13 17:50:00 sodium 2013-0 No Franky 15 mmol, 5 Mem oria phosphate + 8-28 Avendaño mL, Route: l Sodium 22:51: IV, PRN, Jesús Chloride 00 PRN 0.9% IV 250 Abnormal mL Lab Result, Start date: 02/21/13 17:51:00, Duration: 30 day, Stop date: 03/23/13 17:50:00 potassium 2013-0 No Franky 15 mmol, 5 Memoria phosphate + 8- Avendaño mL, Route: l Sodium 22:51: IV, PRN, [place] Chloride 00 PRN 0.9% IV 250 Abnormal mL Lab Result, Start date: 02/21/13 17:51:00, Duration: 30 day, Stop date: 03/23/13 17:50:00 morphine 2013-0 No Liana 2 mg, 1 Mem oria Sulfate 8- Ahmed mL, Route: l 22:51: Badar IV, Drug Jesús 00 form: INJ, Q1H, PRN Pain Score 4-6, Start date: 02/21/13 17:51:00, Duration: 30 day, Stop date: 03/23/13 17:50:00 Tylenol 2012-0 No Ike 650 mg, 1 Me moria 8- Danny supp, l 22:51: Silverio Route: [place], rmann 00 Drug form: SUPP, Q4H, PRN Fever, Start [...] Liana 2 mg, 1 Mem oria Sulfate 8- Ahmed mL, Route: l 22:51: Badar IV, Drug [place] 00 form: INJ, Q1H, PRN Pain Score 4-6, Start date: 02/21/13 17:51:00, Duration: 30 day, Stop date: 03/23/13 17:50:00 Tylenol 2012-0 No Ike 650 mg, 1 Me moria 02-21 Danny supp, l 22:51: Silverio Route: [place], He rmann 00 Drug form: SUPP, Q4H, PRN Fever, Start [...] mL, Route: l 22:51: Badar IV, Drug [place] 00 form: INJ, Q1H, PRN Pain Score 4-6, Start date: 02/21/13 17:51:00, Duration: 30 day, Stop date: 03/23/13 17:50:00 Tylenol 2012-0 No Ike 650 mg, 1 Me moria 8-28 Danny supp, l 22:51: Silverio Route: [place], He rmann 00 Drug form: SUPP, Q4H, PRN Fever, Start [...] mL, Route: l Sodium 22:51: IV, PRN, [place] Chloride 00 PRN 0.9% IV 250 Abnormal mL Lab Result, Start date: 02/21/13 17:51:00, Duration: 30 day, Stop date: 03/23/13 17:50:00 morphine 2012-0 No Liana 2 mg, 1 Mem oria Sulfate 8- Ahmed mL, Route: l 22:51: Badar IV, Drug [place] 00 form: INJ, Q1H, PRN Pain Score 4-6, Start date: 02/21/13 17:51:00, Duration: 30 day, Stop date: 03/23/13 17:50:00 Tylenol 2012-0 No Ike 650 mg, 1 Me moria 8-28 Danny supp, l 22:51: Silverio Route: [place], He rmann 00 Drug form: SUPP, Q4H, PRN Fever, Start date: 02/21/13 17:51:00, Duration: 30 day, Stop date: 03/23/13 17:50:00 sodium 2012-0 No Franky 15 mmol, 5 Mem oria phosphate + 8-28 Avendaño mL, Route: l Sodium 22:51: IV, PRN, [place] Chloride 00 PRN 0.9% IV 250 Abnormal mL Lab Result, Start date: 02/21/13 17:51:00, Duration: 30 day, Stop date: 03/23/13 17:50:00 potassium 2012-0 No Franky 15 mmol, 5 Memoria phosphate + 8 Avendaño mL, Route: l Sodium 22:51: IV, PRN, Jesús Chloride 00 PRN 0.9% IV 250 Abnormal mL Lab Result, Start date: 02/21/13 17:51:00, Duration: 30 day, Stop date: 03/23/13 17:50:00 morphine 2012-0 No Liana 2 mg, 1 Mem oria Sulfate 02-21 Ahmed mL, Route: l 22:51: Badar IV, Drug Jesús 00 form: INJ, Q1H, PRN Pain Score 4-6, Start date: 02/21/13 17:51:00, Duration: 30 day, Stop date: 03/23/13 17:50:00 Tylenol 2012- No Ike 650 mg, 1 Me moria 02-21 Danny supp, l 22:51: Silverio Route: [place], He r[place] 00 Drug form: SUPP, Q4H, PRN Fever, Start date: 02/21/13 17:51:00, Duration: 30 day, Stop date: 03/23/13 17:50:00 sodium 2012-0 No Franky 15 mmol, 5 Mem oria phosphate + 02-21 Avendaño mL, Route: l Sodium 22:51: IV, PRN, Jesús Chloride 00 PRN 0.9% IV 250 Abnormal mL Lab Result, Start date: 02/21/13 17:51:00, Duration: 30 day, Stop date: 03/23/13 17:50:00 potassium 2012-0 No Franky 15 mmol, 5 Memoria phosphate + 8 Avendaño mL, Route: l Sodium 22:51: IV, PRN, [place] Chloride 00 PRN 0.9% IV 250 Abnormal [...] 3 gm, 6 Mem oria sulfate + 8-28 Avendaño mL, Route: l Sodium 22:50: IVPB, PRN, Lilian nn Chloride 00 PRN 0.9% IV 50 Abnormal mL Lab Result, Start date: 02/21/13 17:50:00, Duration: 30 day, Stop date: 03/23/13 17:49:00 magnesium 2012-0 No Franky 50 mL, Hossein diana sulfate 02-21s Rate: 50 l 22:50: ml/hr, [place] 00 Infuse over: 60 minutes, Route: IVPB, Total Volume: 50, Start date: 02/21/13 17:50:00, Duration: 30 day, Stop date: 03/23/13 17:49:00, PRN Abnormal Lab Result calcium No Ike 2,000 mg, Me moria gluconate + 02-21 Danny 20 mL, l Sodium 22:50: Silverio Route: Herm karina Chloride 00 IVPB, PRN, 0.9% IV 100 PRN mL Abnormal Lab Result, Start date: 02/21/13 17:50:00, Duration: 30 day, Stop date: 03/23/13 17:49:00 magnesium 2012-0 No Franky 3 gm, 6 Mem oria sulfate + 8-28 Avendaño mL, Route: l Sodium 22:50: IVPB, PRN, Lilian nn Chloride 00 PRN 0.9% IV 50 Abnormal mL Lab Result, Start date: 02/21/13 17:50:00, Duration: 30 day, Stop date: 03/23/13 17:49:00 magnesium 2012-0 No Franky 50 mL, Hossein diana sulfate 02-21s Rate: 50 l 22:50: ml/hr, [place] 00 Infuse over: 60 minutes, Route: IVPB, Total Volume: 50, Start date: 02/21/13 17:50:00, Duration: 30 day, Stop date: 03/23/13 17:49:00, PRN Abnormal Lab Result calcium No Ike 2,000 mg, Me moria gluconate + 8 Danny 20 mL, l Sodium 22:50: Silverio Route: Herm karina Chloride 00 IVPB, PRN, 0.9% IV 100 PRN mL Abnormal Lab Result, Start date: 02/21/13 17:50:00, Duration: 30 day, Stop date: 03/23/13 17:49:00 magnesium 2012- No Franky 3 gm, 6 Mem oria sulfate + 02-21 Avendaño mL, Route: l Sodium 22:50: IVPB, PRN, Lilian nn Chloride 00 PRN 0.9% IV 50 Abnormal mL Lab Result, Start date: 02/21/13 17:50:00, Duration: 30 day, Stop date: 03/23/13 17:49:00 magnesium No Franky 50 mL, Hossein daina sulfate 02-21 Rate: 50 l 22:50: ml/hr, [place] 00 Infuse over: 60 minutes, Route: IVPB, Total Volume: 50, Start date: 02/21/13 17:50:00, Duration: 30 day, Stop date: 03/23/13 17:49:00, PRN Abnormal Lab Result calcium No Ike 2,000 mg, Me moria gluconate + 02-21 Danny 20 mL, l Sodium 22:50: Silverio Route: Herm karina Chloride 00 IVPB, PRN, 0.9% IV 100 PRN mL Abnormal Lab Result, Start date: 02/21/13 17:50:00, Duration: 30 day, Stop date: 03/23/13 17:49:00 magnesium No Franky 3 gm, 6 Mem oria sulfate + 02-21 Avendaño mL, Route: l Sodium 22:50: IVPB, PRN, Lilian nn Chloride 00 PRN 0.9% IV 50 Abnormal mL Lab Result, Start date: 02/21/13 17:50:00, Duration: 30 day, Stop date: 03/23/13 17:49:00 magnesium No Franky 50 mL, Hossein diana sulfate 02-21 Rate: 50 l 22:50: ml/hr, [place] 00 Infuse over: 60 minutes, Route: IVPB, Total Volume: 50, Start date: 02/21/13 17:50:00, Duration: 30 day, Stop date: 03/23/13 17:49:00, PRN Abnormal Lab Result calcium No Ike 2,000 mg, Me moria gluconate + 02-21 Danny 20 mL, l Sodium 22:50: Silverio Route: Herm karina Chloride 00 IVPB, PRN, 0.9% IV 100 PRN mL Abnormal Lab Result, Start date: 02/21/13 17:50:00, Duration: 30 day, Stop date: 03/23/13 17:49:00 magnesium 2012- No Franky 3 gm, 6 Mem oria sulfate + 8 Avendaño mL, Route: l Sodium 22:50: IVPB, PRN, Lilian nn Chloride 00 PRN 0.9% IV 50 Abnormal mL Lab Result, Start date: 02/21/13 17:50:00, Duration: 30 day, Stop date: 03/23/13 17:49:00 magnesium 2012- No Franky 50 mL, Hossein diana sulfate 02-21 Rate: 50 l 22:50: ml/hr, Jesús 00 Infuse over: 60 minutes, Route: IVPB, Total Volume: 50, Start date: 02/21/13 17:50:00, Duration: 30 day, Stop date: 03/23/13 17:49:00, PRN Abnormal Lab Result calcium No Ike 2,000 mg, Me moria gluconate + 02-21 Danny 20 mL, l Sodium 22:50: Silverio Route: Herm karina Chloride 00 IVPB, PRN, 0.9% IV 100 PRN mL Abnormal Lab Result, Start date: 02/21/13 17:50:00, Duration: 30 day, Stop date: 03/23/13 17:49:00 magnesium 2012- No Franky 3 gm, 6 Mem oria sulfate + 8 Avendaño mL, Route: l Sodium 22:50: IVPB, [...] 03/23/13 17:49:00, PRN Abnormal Lab Result potassium 2013-0 No Ike 20 mEq, Me moria chloride 8-28 Danny 100 mL, l 22:49: Silverio Route: Kishore n 00 IVPB, Drug form: INJ, PRN, PRN Abnormal Lab Result, Start date: 02/21/13 17:49:00, Duration: 30 day, Stop date: 03/23/13 17:48:00 potassium 2013-0 No Ike 20 mEq, Me moria chloride 8-28 Danny 100 mL, l 22:49: Silverio Route: Kishore n 00 IVPB, Drug form: INJ, PRN, PRN Abnormal Lab Result, Start date: 02/21/13 17:49:00, Duration: 30 day, Stop date: 03/23/13 17:48:00 potassium 2013-0 No Ike 20 mEq, Me moria chloride 8-28 Danny 100 mL, l 22:49: Silverio Route: Kishore n 00 IVPB, Drug form: INJ, PRN, PRN Abnormal Lab Result, Start date: 02/21/13 17:49:00, Duration: 30 day, Stop date: 03/23/13 17:48:00 potassium 2013-0 No Ike 20 mEq, Me moria chloride 8-28 Danny 100 mL, l 22:49: Silverio Route: Kishore n 00 IVPB, Drug form: INJ, PRN, PRN Abnormal Lab Result, Start date: 02/21/13 17:49:00, Duration: 30 day, Stop date: 03/23/13 17:48:00 potassium 2013-0 No Ike 20 mEq, Me moria chloride 8-28 Danny 100 mL, l 22:49: Silverio Route: Kishore n 00 IVPB, Drug form: INJ, PRN, PRN Abnormal Lab Result, Start date: 02/21/13 17:49:00, Duration: 30 day, Stop date: 03/23/13 17:48:00 potassium 2013-0 No Ike 20 mEq, Me moria chloride 8-28 Danny 100 mL, l 22:49: Silverio Route: Kishore n 00 IVPB, Drug form: INJ, PRN, PRN Abnormal Lab Result, Start date: 02/21/13 17:49:00, Duration: 30 day, Stop date: 03/23/13 17:48:00 morphine 2012-0 No Ike IV, Start M emoria Sulfate 30 02-21 Danny date: l mg 22:40: Silverio 02/21/13 Herm karina 00 17:40:00, Duration: 30, 30 ml, 65 morphine 2012-0 No Ike IV, Start M emoria Sulfate 30 02-21 Danny date: l mg 22:40: Silverio 02/21/13 Herm karina 00 17:40:00, Duration: 30, 30 ml, 65 morphine 2012- No Ike IV, Start M emoria Sulfate 30 02-21 Danny date: l mg 22:40: Silverio 02/21/13 Herm karina 00 17:40:00, Duration: 30, 30 ml, 65 morphine 2012-0 No Ike IV, Start M emoria Sulfate 30 02-21 Danny date: l mg 22:40: Silverio 02/21/13 Herm karina 17:40:00, Duration: 30, 30 ml, 65 morphine 2012-0 No Ike IV, Start M emoria Sulfate 30 02-21 Danny date: l mg 22:40: Silverio 02/21/13 Herm karina 00 17:40:00, Duration: 30, 30 ml, 65 morphine 2012-0 No Ike IV, Start M emoria Sulfate 30 02-21 Danny date: l mg 22:40: Silverio 02/21/13 Herm karina 00 17:40:00, Duration: 30, 30 ml, 65 D5W 1/2NS + No Ike 1,000 mL, Memoria KCL 20mEq/L 02-21 Danny Rate: 125 l 1000ml 22:38: Silverio ml/hr, Herm karina (Premix) 00 Infuse 1,000 mL over: 8 hr, Route: IV, Dosing Weight 65 kg, Total Volume: 1,000, Start date: 02/21/13 17:38:00, Stop date: 03/23/13 17:37:00 Sodium 2012-0 No Ike 250 mL, Memor ia Chloride 02-21 Danny Route: l 0.9% IV 22:38: Silverio IVPB, Herm karina 00 Start date: 02/21/13 17:38:00, Duration: 30 day, Stop date: 03/23/13 17:37:00, PRN Line Flush BD Normal 2012- No Ike 10 mL, Mem oria Saline - Danny Route: l Flush 22:38: Silverio IVP, Drug He rm 00 Form: INJ, PRN, PRN Line Flush, Start date: 02/21/13 17:38:00, Duration: 30 day, Stop date: 03/23/13 17:37:00 D5W 1/2NS + No Ike 1,000 mL, Memoria KCL 20mEq/L 02-21 Danny Rate: 125 l 1000ml 22:38: Silverio ml/hr, Herm karina (Premix) 00 Infuse 1,000 mL over: 8 hr, Route: IV, Dosing Weight 65 kg, Total Volume: 1,000, Start date: 02/21/13 17:38:00, Stop date: 03/23/13 17:37:00 Sodium 2012- No Ike 250 mL, Memor ia Chloride - Danny Route: l 0.9% IV 22:38: Silverio IVPB, Herm karina 00 Start date: 02/21/13 17:38:00, Duration: 30 day, Stop date: 03/23/13 17:37:00, PRN Line Flush BD Normal No Ike 10 mL, Mem oria Saline - Danny Route: l Flush 22:38: Silverio IVP, Drug He rm Form: INJ, PRN, PRN Line Flush, Start date: 02/21/13 17:38:00, Duration: 30 day, Stop date: 03/23/13 17:37:00 D5W 1/2NS + No Ike 1,000 mL, Memoria KCL 20mEq/L [...] Stop date: 03/23/13 17:37:00 D5W 1/2NS + 2012- No Ike 1,000 mL, Memoria KCL 20mEq/L 02-21 Danny Rate: 125 l 1000ml 22:38: Silverio ml/hr, Herm karina (Premix) 00 Infuse 1,000 mL over: 8 hr, Route: IV, Dosing Weight 65 kg, Total Volume: 1,000, Start date: 02/21/13 17:38:00, Stop date: 03/23/13 17:37:00 Sodium 2012- No Ike 250 mL, Memor ia Chloride 02-21 Danny Route: l 0.9% IV 22:38: Silverio IVPB, Herm karina 00 Start date: 02/21/13 17:38:00, Duration: 30 day, Stop date: 03/23/13 17:37:00, PRN Line Flush BD Normal 2012-0 No Ike 10 mL, Mem oria Saline 02-21 Danny Route: l Flush 22:38: Silverio IVP, Drug He rm Form: INJ, PRN, PRN Line Flush, Start date: 02/21/13 17:38:00, Duration: 30 day, Stop date: 03/23/13 17:37:00 D5W 1/2NS + 2012-0 No Ike 1,000 mL, Memoria KCL 20mEq/L 02-21 Danny Rate: 125 l 1000ml 22:38: Silverio ml/hr, Herm karina (Premix) 00 Infuse 1,000 mL over: 8 hr, Route: IV, Dosing Weight 65 kg, Total Volume: 1,000, Start date: 02/21/13 17:38:00, Stop date: 03/23/13 17:37:00 Sodium 2012- No Ike 250 mL, Memor ia Chloride 02-21 Danny Route: l 0.9% IV 22:38: Silverio IVPB, Herm karina 00 Start date: 02/21/13 17:38:00, Duration: 30 day, Stop date: 03/23/13 17:37:00, PRN Line Flush BD Normal No Ike 10 mL, Mem oria Saline 02-21 Danny Route: l Flush 22:38: Silverio IVP, Drug He rmann Form: INJ, PRN, PRN Line Flush, Start date: 02/21/13 17:38:00, Duration: 30 day, Stop date: 03/23/13 17:37:00 D5W 1/2NS + No Ike 1,000 mL, Memoria KCL 20mEq/L 02-21 Danny Rate: 125 l 1000ml 22:38: Silverio ml/hr, Herm karina (Premix) 00 Infuse 1,000 mL over: 8 hr, Route: IV, Dosing Weight 65 kg, Total Volume: 1,000, Start date: 02/21/13 17:38:00, Stop date: 03/23/13 17:37:00 Sodium No Ike 250 mL, Memor ia Chloride 02-21 Danny Route: l 0.9% IV 22:38: Silverio IVPB, Herm karina 00 Start date: 02/21/13 17:38:00, Duration: 30 day, Stop date: 03/23/13 17:37:00, PRN Line Flush BD Normal No Ike 10 mL, Mem oria Saline 02-21 Danny Route: l Flush 22:38: Silverio IVP, Drug He rm 00 Form: INJ, PRN, PRN Line Flush, Start date: 02/21/13 17:38:00, Duration: 30 day, Stop date: 03/23/13 17:37:00 Vitamin C Yes 240MG, 1 Hossein diana 8-27 TAB, PO, l 18:47: BID, Jesús Substituti on Allowed Vitamin C Yes 240MG, 1 Hossein diana 8-27 TAB, PO, l 18:47: BID, Jesús 03 Substituti on Allowed Vitamin C 2013-0 Yes 240MG, 1 Hossein diana 8-27 TAB, PO, l 18:47: BID, Jesús Substituti on Allowed Vitamin C 2012-0 Yes 240MG, 1 Hossein diana 8-27 TAB, PO, l 18:47: BID, Jesús Substituti on Allowed Vitamin C 2012-0 Yes 240MG, 1 Hossein diana 8-27 TAB, PO, l 18:47: BID, Jesús Substituti on Allowed Vitamin C 2013-0 Yes 240MG, 1 Hossein diana 8-27 TAB, PO, l 18:47: BID, Jesús Substituti on Allowed Fish Oil 0 Yes 600mg, 1 Memor ia 8-27 tab, PO, l 18:45: BID, with Jesús 38 300mg OMEGA 2, Substituti on Allowedwit h 300mg OMEGA 2 Fish Oil 0 Yes 600mg, 1 Memor ia 8-27 tab, PO, l 18:45: BID, with Jesús 38 300mg OMEGA 2, Substituti on Allowedwit h 300mg OMEGA 2 Fish Oil 2012-0 Yes 600mg, 1 Memor ia 8-27 tab, PO, l 18:45: BID, with [place] 38 300mg OMEGA 2, Substituti on Allowedwit h 300mg OMEGA 2 Fish Oil 2012-0 Yes 600mg, 1 Memor ia 8-27 tab, PO, l 18:45: BID, with [place] 38 300mg OMEGA 2, Substituti on Allowedwit h 300mg OMEGA 2 Fish Oil 2012-0 Yes 600mg, 1 Memor ia 8- tab, PO, l 18:45: BID, with [place] 38 300mg OMEGA 2, Substituti on Allowedwit h 300mg OMEGA 2 Fish Oil 2012-0 Yes 600mg, 1 Memor ia 8-27 tab, PO, l 18:45: BID, with [place] 38 300mg OMEGA 2, Substituti on Allowedwit h 300mg OMEGA 2 Calcium 600 2013-0 Yes 1 tab, PO, Memoria +D oral 8- BID, l tablet 18:44: Substituti Lilian nn 57 on Allowed, Maintenanc e Calcium 600 2012-0 Yes 1 tab, PO, Memoria +D oral 8- BID, l tablet 18:44: Substituti Lilian nn [...] moria en 8-27 tabs, PO, l 18:44: PRNJesús Substituti on Allowed acetaminoph No 500mg, 2 Me moria en 8-27 tabs, PO, l 18:44: PRNJesús Substituti on Allowed acetaminoph No 500mg, 2 Me moria en 8-27 tabs, PO, l 18:44: PRNJesús Substituti on Allowed acetaminoph No 500mg, 2 Me moria en 8-27 tabs, PO, l 18:44: PRNJesús Substituti on Allowed acetaminoph No 500mg, 2 Me moria en 8-27 tabs, PO, l 18:44: PRNJesús 02 Substituti on Allowed acetaminoph No 500mg, 2 Me moria en 8-27 tabs, PO, l 18:44: PRNJesús Substituti on Allowed alendronate Yes 70 mg, 1 Me moria 70 mg oral 8-27 tab, PO, l tablet, 18:42: QMJesús hayes effervescen 50 Substituti t on Allowed alendronate Yes 70 mg, 1 Me moria 70 mg oral 8-27 tab, PO, l tablet, 18:42: Jesús Pelayo effervescen 50 Substituti t on Allowed alendronate 2012-0 Yes 70 mg, 1 Me moria 70 mg oral 8-27 tab, PO, l tablet, 18:42: Jesús Pelayo effervescen 50 Substituti t on Allowed alendronate 2012-0 Yes 70 mg, 1 Me moria 70 mg oral 8-27 tab, PO, l tablet, 18:42: QMJesús hayes effervescen 50 Substituti t on Allowed alendronate 2012-0 Yes 70 mg, 1 Me moria 70 mg oral 8-27 tab, PO, l tablet, 18:42: Tiarra Pelayoann effervescen 50 Substituti t on Allowed alendronate 2012-0 Yes 70 mg, 1 Me moria 70 mg oral 8-27 tab, PO, l tablet, 18:42: Jesús Pelayo effervescen 50 Substituti t on Allowed Aspirin Low 2012-0 No 81 mg, 1 Me moria Dose 81 mg 8-27 tab, PO, l oral tablet 18:41: Daily, Tiarra Florez Substituti on Allowed Aspirin Low 2012-0 No 81 mg, 1 Me moria Dose 81 mg 8-27 tab, PO, l oral tablet 18:41: Daily, Tiarra collins 41 Substituti on Allowed Aspirin Low 2012-0 No 81 mg, 1 Me moria Dose 81 mg 8-27 tab, PO, l oral tablet 18:41: Daily, Tiarra collins 41 Substituti on Allowed Aspirin Low 2012-0 No 81 mg, 1 Me moria Dose 81 mg 8-27 tab, PO, l oral tablet 18:41: Daily, Tiarra collins 41 Substituti on Allowed Aspirin Low 2012-0 No 81 mg, 1 Me moria Dose 81 mg 8-27 tab, PO, l oral tablet 18:41: Daily, Tiarra collins 41 Substituti on Allowed Aspirin Low 0 No 81 mg, 1 Me moria Dose 81 mg 8-27 tab, PO, l oral tablet 18:41: Daily, Tiarra collins 41 Substituti on Allowed levothyroxi No 50 [...] tab, Substituti on Allowed, TABbefore breakfast clopidogrel 2013-0 Yes 75 mg, 1 Me moria 75 mg oral 8-27 tab, PO, l tablet 18:40: Daily, 30 Kishore n 08 tab, Substituti on Allowed, TAB clopidogrel 2013-0 Yes 75 mg, 1 Me moria 75 mg oral 8-27 tab, PO, l tablet 18:40: Daily, 30 Kishore n 08 tab, Substituti on Allowed, TAB clopidogrel 2013-0 Yes 75 mg, 1 Me moria 75 mg oral 8-27 tab, PO, l tablet 18:40: Daily, 30 Kishore n 08 tab, Substituti on Allowed, TAB clopidogrel 2013-0 Yes 75 mg, 1 Me moria 75 mg oral 8-27 tab, PO, l tablet 18:40: Daily, 30 Kishore n 08 tab, Substituti on Allowed, TAB clopidogrel 2013-0 Yes 75 mg, 1 Me moria 75 mg oral 8-27 tab, PO, l tablet 18:40: Daily, 30 Kishore n 08 tab, Substituti on Allowed, TAB clopidogrel 2013-0 Yes 75 mg, 1 Me moria 75 mg oral 8-27 tab, PO, l tablet 18:40: Daily, 30 Kishore n 08 tab, Substituti on Allowed, TAB simvastatin 2012-0 No 0, 1 tab, M emoria 10 mg oral 8-27 PO, l tablet 18:39: Bedtime, Jesús 49 30 tab, Substituti on Allowed simvastatin 0 No 0, 1 tab, M emoria 10 mg oral 8-27 PO, l tablet 18:39: Bedtime, [place] 49 30 tab, Substituti on Allowed simvastatin 0 No 0, 1 tab, M emoria 10 mg oral 8-27 PO, l tablet 18:39: Bedtime, Jesús 49 30 tab, Substituti on Allowed simvastatin 2012-0 No 0, 1 tab, M emoria 10 mg oral 8-27 PO, l tablet 18:39: Bedtime, [place] 49 30 tab, Substituti on Allowed simvastatin 0 No 0, 1 tab, M emoria 10 mg oral 8-27 PO, l tablet 18:39: Bedtime, Jesús 49 30 tab, Substituti on Allowed simvastatin 2012-0 No 0, 1 tab, M emoria 10 mg oral 8-27 PO, l tablet 18:39: Bedtime, [place] 49 30 tab, Substituti on Allowed cilostazol 2012-0 No 100 mg, 1 Me moria 100 mg oral 8-27 tab, PO, l tablet 18:39: BID, 180 Jesús 38 tab, Substituti on Allowed, TAB cilostazol 2012-0 No 100 mg, 1 Me moria 100 mg oral 8-27 tab, PO, l tablet 18:39: BID, 180 Jesús 38 tab, Substituti on Allowed, TAB cilostazol 2012-0 No 100 mg, 1 Me moria 100 mg oral 8-27 tab, PO, l tablet 18:39: BID, 180 Jesús 38 tab, Substituti on Allowed, TAB cilostazol 2012-0 No 100 mg, 1 Me moria 100 mg oral 8-27 tab, PO, l tablet 18:39: BID, 180 [place] 38 tab, Substituti on Allowed, TAB cilostazol 2012-0 No 100 mg, 1 Me moria 100 mg oral 8-27 tab, PO, l tablet 18:39: BID, 180 Jesús 38 tab, Substituti on Allowed, TAB cilostazol 2013-0 No 100 mg, 1 Me moria 100 mg oral 8-27 tab, PO, l tablet 18:39: BID, 180 [place] 38 tab, Substituti on Allowed, TAB dipyridamol 2013-0 No 75 mg, 1 Me moria e 75 mg 8-27 tab, PO, l oral tablet 18:38: BID, Kishore rubio 50 Substituti on Allowed dipyridamol 2013-0 No 75 mg, 1 Me moria e 75 mg 8-27 tab, PO, l oral tablet 18:38: BID, Kishore rubio 50 Substituti on Allowed dipyridamol 2013-0 No 75 mg, 1 Me moria e 75 mg 8-27 tab, PO, l oral tablet 18:38: BID, Kishore rubio 50 Substituti on Allowed dipyridamol 2013-0 No 75 mg, 1 Me moria e 75 mg 8-27 tab, PO, l oral tablet 18:38: BID, Kishore rubio 50 Substituti on Allowed dipyridamol 2013-0 No 75 mg, 1 Me moria e 75 mg 8-27 tab, PO, l oral tablet 18:38: BID, Kishore rubio 50 Substituti on Allowed dipyridamol 2013-0 No 75 mg, 1 Me moria e 75 mg 8-27 tab, PO, l oral tablet 18:38: BID, Kishore Cisse Substituti on Allowed Immunizations Ordered Immunization Filled Immunization Date Status Commen ts Source Name Name [id number] 2020-08-27 Completed Hossein rial [id number] 00:00:00 [facility] karina [id number] 2020-08-27 Completed Hossein rial [id number] 00:00:00 [facility] karina [id number] 2020-08-27 Completed Hossein rial [id number] 00:00:00 [facility] karina [id number] 2020-08-27 Completed Hossein rial [id number] 00:00:00 [facility] karina [id number] 2020-08-27 Completed Hossein rial [id number] 00:00:00 Herm karina [id number] 2020-08-27 Completed Hossein rial [id number] 00:00:00 Herm karina [id number] 2020-08-06 Completed Hossein rial [id number] 00:00:00 Herm karina [id number] 2020-08-06 Completed Hossein rial NABNT-[id number] 00:00:00 Herm karina [id number] 2020-08-06 Completed Hossein rial [id number] 00:00:00 Herm karina [id number] 2020-08-06 Completed Hossein rial [id number]-[id number] 00:00:00 Herm karina [id number]-[id number] 2020-08-06 Completed Hossein rial [id number] 00:00:00 Herm karina [id number]-[id number] 2020-08-06 Completed Hossein rial [id number] 00:00:00 Herm karina Vital Signs Vital Name Observation Time Observation Value Comments Source Respitory Rate 2021-01-14 17:00:00 Memori al Jesús Systolic (mm Hg) 2021-01-14 17:00:00 Hossein rial Jesús Diastolic (mm Hg) 2021-01-14 17:00:00 Mem orial Jesús Respitory Rate 2021-01-14 16:00:00 Memori al [place] Systolic (mm Hg) 2021-01-14 16:00:00 Hossein rial [place] Diastolic (mm Hg) 2021-01-14 16:00:00 Mem orial Jesús Respitory Rate 2021-01-14 15:00:00 Memori al Jesús Systolic (mm Hg) 2021-01-14 15:00:00 Hossein rial [place] Diastolic (mm Hg) 2021-01-14 15:00:00 Mem orial Jesús Temperature Oral (F) 2021-01-13 12:20:00 97.6 F [facility] [place] Height 2021-01-08 18:20:00 149.86 cm [facility] Jesús Weight 2021-01-08 18:20:00 [facility]s BMI Calculated 2021-01-08 18:20:00 Memori al Jesús Heart Rate 2021-01-08 18:20:00 [facility] [place] Respitory Rate 2020-10-29 17:00:00 Memori al Jesús Systolic (mm Hg) 2020-10-29 17:00:00 Hossein rial Jesús Diastolic (mm Hg) 2020-10-29 17:00:00 Mem orial [place] Respitory Rate 2020-10-29 16:00:00 Memori al [place] Systolic (mm Hg) 2020-10-29 16:00:00 Hossein rial [place] Diastolic (mm Hg) 2020-10-29 16:00:00 Mem orial [place] Respitory Rate 2020-10-29 15:00:00 Memori al Jesús Systolic (mm Hg) 2020-10-29 15:00:00 Hossein rial [place] Diastolic (mm Hg) 2020-10-29 15:00:00 Mem orial Jesús Temperature Oral (F) 2020-10-28 14:24:00 97.5 F [facility] [place] Height 2020-10-24 18:06:00 149.86 cm [facility] [place] Weight 2020-10-24 18:06:00 [facility]s BMI Calculated 2020-10-24 18:06:00 Memori al [place] Heart Rate 2020-10-24 18:06:00 [facility] [place] Respitory Rate 2020-10-24 18:06:00 Memori al [place] Systolic (mm Hg) 2020-10-24 18:06:00 Hossein rial [place] Diastolic (mm Hg) 2020-10-24 18:06:00 Mem orial [place] Height 2020-09-18 15:59:00 149.86 cm [facility] [place] Weight 2020-09-18 15:59:00 [facility] [place] BMI Calculated 2020-09-18 15:59:00 Memori al [place] Height 2018-06-13 18:53:00 149.86 cm [facility] Jesús BMI Calculated 2018-06-13 18:53:00 Memori al [place] Weight 2018-06-13 18:53:00 [facility] [place] Respitory Rate 2017-11-18 19:45:00 Memori al [place] Systolic (mm Hg) 2017-11-18 19:45:00 Hossein rial [place] Diastolic (mm Hg) 2017-11-18 19:45:00 Mem orial [place] Heart Rate 2017-11-18 19:45:00 [facility] [place] Systolic (mm Hg) 2017-11-18 15:40:00 Hossein rial [place] Diastolic (mm Hg) 2017-11-18 15:40:00 Mem orial [place] Heart Rate 2017-11-18 15:40:00 [facility] Jes[facility]s Respitory Rate 2017-11-18 15:40:00 Memori al Jesús Heart Rate 2017-11-18 12:00:00 [facility] [place] Respitory Rate 2017-11-18 12:00:00 Memori al Jesús Systolic (mm Hg) 2017-11-18 12:00:00 Hossein rial Jesús Diastolic (mm Hg) 2017-11-18 12:00:00 Mem orial Jesús Weight 2017-11-18 10:00:00 [facility] [place] Weight 2017-11-17 10:00:00 [facility] [place] Height 2017-11-15 13:11:00 149.86 cm [facility] Jes[facility]s Height 2017-11-15 09:35:00 149.86 cm [facility] Height 2017-11-15 05:00:00 149.86 cm [facility] BMI Calculated 2017-11-14 14:18:00 Mem[facility] al [facility] Weight 2017-11-14 14:18:00 [facility] Temperature Oral (F) 2017-11-14 14:15:00 97.5 F [facility] Height 2015-12-08 15:46:00 149.86 cm [facility] [place] BMI Calculated 2015-12-08 15:46:00 Memori al [place] Weight 2015-12-08 15:46:00 [facility] [place] Respitory Rate 2014-02-10 20:25:00 [facility] al [place] Temperature Oral (F) 2014-02-10 17:00:00 98 F [facility] Jes[facility]s Systolic (mm Hg) 2014-02-10 17:00:00 Hossein rial [place] Diastolic (mm Hg) 2014-02-10 17:00:00 Mem orial [place] Respitory Rate 2014-02-10 17:00:00 Memori al Jesús Heart Rate 2014-02-10 17:00:00 [facility] [place] Temperature Oral (F) 2014-02-10 12:47:00 97.8 F [facility] [place] Diastolic (mm Hg) 2014-02-10 12:47:00 Mem orial Jesús Systolic (mm Hg) 2014-02-10 12:47:00 Hossein rial Jesús Heart Rate 2014-02-10 12:47:00 [facility] Respitory Rate 2014-02-10 12:47:00 Memori al Jesús Diastolic (mm Hg) 2014-02-10 09:00:00 Mem orial [place] Systolic (mm Hg) 2014-02-10 09:00:00 Hossein rial [place] Heart Rate 2014-02-10 09:00:00 [facility] Temperature Oral (F) 2014-02-10 09:00:00 97.8 F [facility] Height 2014-02-01 14:50:00 149.86 cm [facility] BMI Calculated 2014-02-01 14:50:00 Memori al Jeúss Weight 2014-02-01 14:50:00 [facility] Heart Rate 2013-03-02 17:23:00 [facility] Temperature Oral (F) 2013-03-02 17:23:00 98.4 F [facility] Systolic (mm Hg) 2013-03-02 17:23:00 Hossein rial Jesús Diastolic (mm Hg) 2013-03-02 17:23:00 Mem orial Jesús Respitory Rate 2013-03-02 17:23:00 Memori al [place] Diastolic (mm Hg) 2013-03-02 13:07:00 Mem orial [place] Systolic (mm Hg) 2013-03-02 13:07:00 Hossein rial [place] Respitory Rate 2013-03-02 13:07:00 Memori al [place] Temperature Oral (F) 2013-03-02 13:07:00 98.0 F [facility] [place] Heart Rate 2013-03-02 13:07:00 [facility] [place] Weight 2013-03-02 10:19:00 [facility] Respitory Rate 2013-03-02 10:18:00 Memori al Jesús Systolic (mm Hg) 2013-03-02 10:18:00 Hossein rial [place] Diastolic (mm Hg) 2013-03-02 10:18:00 Mem orial [place] Temperature Oral (F) 2013-03-02 10:18:00 98.7 F [facility] Jes[facility]s Heart Rate 2013-03-02 10:18:00 [facility] Weight 2013-03-01 09:00:00 [facility] [place] Height 2013-02-20 18:23:00 149.86 cm [facility] [place] Weight 2013-02-20 18:23:00 [facility] Jesús Procedures Procedure Date / Time Performed Performing Clinician [facility] e Placement of stent, RIGHT 2012-06-02 06:00:00 Me morial [place] GROIN<sup>1</sup> Placement of stent, RIGHT 2012-06-02 06:00:00 Me morial [place] GROIN <sup>4</sup> Diagnostic arteriogram, 2004-11-12 05:00:00 Hossein rial Jesús RENAL, CAROTID SUBCLAVIAN-SUBCLAVIAN GRAFT & RIGHT BRACHIAL Diagnostic arteriogram, 2004-11-12 05:00:00 Silvio Price Hossein rial [place] RENAL, CAROTID SUBCLAVIAN-SUBCLAVIAN GRAFT & RIGHT BRACHIAL Insertion of coronary 1995-07-07 06:00:00 Memori al [place] artery stent, LEFT, ANGIOPLASTY Insertion of coronary 1995-07-07 06:00:00 Memori al Jesús artery stent, LEFT, ANGIOPLASTY Angioplasty, RIGHT 1995-07-04 06:00:00 [facility] [place] CORONARY Angioplasty, RIGHT 1995-07-04 06:00:00 [facility] [place] CORONARY Subclavian-subclavian 1995-06-30 06:00:00 Memori al [place] artery bypass graft with vein Subclavian-subclavian 1995-06-30 06:00:00 Memori al Jesús artery bypass graft with vein Carotid endarterectomy, 1995-06-09 06:00:00 Hossein rial Jesús RIGHT Carotid endarterectomy, 1995-06-09 06:00:00 Hossein rial Jesús RIGHT Miscellaneous 1995-06-06 06:00:00 Hoang Her mckee operations<sup>4</sup> Miscellaneous operations 1995-06-06 06:00:00 Mem orial [place] <sup>2</sup> Leg repair<sup>3</sup> Hoang Espinosa Leg repair <sup>1</sup> Hoang Espinosa Encounters Start End Encounter Admission Attending Care Care Encounter Source Date/Time Date/Time Type Type Clinicians Facility Department ID 2019-08-29 Outpatient DANISH [id number] 15:17:49 SILVIO 2021-01-13 2021-01-14 Inpatient nullFlavo [facility] [id number] Memoria 11:56:00 18:45:00 r Jesús 12 [facility] 2021-01-13 2021-01-14 Inpatient nullFlavo [facility] [id number] Memoria 11:56:00 18:45:00 r [place] 12 [facility] 2021-01-13 2021-01-14 Inpatient U SILVERIO [id number] [facility] 06:56:00 13:45:00 IKE 2021-01-13 2021-01-14 Outpatient Silverio [facility] [id number] 06:56:00 13:45:00 Ike Delgado 2021-01-08 2021-01-09 Outpt Diag nullFlavo [facility] [id number] Memoria 19:33:00 04:59:00 Services r Outpatient 07 l [facility] 2021-01-08 2021-01-09 Outpt Diag nullFlavo [facility] [id number] Memoria 19:33:00 04:59:00 Services r Outpatient 07 l [facility] 2021-01-08 2021-01-08 Outpatient Silverio [id number] . [id number] 14:33:00 23:59:00 Ike [id number] Danny [id number] 2020-10-28 2020-10-29 [facility] [id number] Memoria 10:55:00 19:00:00 douglas [place] [address] [place] [address] 2020-10-28 2020-10-29 Inpatient [facility] [id number] Memoria 10:55:00 19:00:00 r Jesús [address] [place] [address] 2020-10-28 2020-10-29 Inpatient SILVERIO, [facility] [id number] [facility] 05:55:00 14:00:00 IKE 2020-10-28 2020-10-29 Outpatient Silverio, [facility] [id number] 05:55:00 14:00:00 Ike Delgado 2020-10-28 2020-10-28 Outpatient Silverio, [facility] [id number] 07:30:00 07:30:00 Ike Delgado 2020-10-24 2020-10-25 Outpt Diag nullFlavo [facility] [id number] Memoria 19:35:00 04:59:00 Services r Outpatient 06 l [facility] 2020-10-24 2020-10-25 Outpt Diag nullFlavo [facility] [id number] Memoria 19:35:00 04:59:00 Services r Outpatient 06 l [facility] 2020-10-24 2020-10-24 Outpatient Silverio, [id number] . [id number] 14:35:00 23:59:00 Ike [id number] Danny [id number] 2020-09-18 2020-09-19 Outpatient nullFlavo [facility] [id number] Memoria 14:47:00 04:59:00 r Jesús 10 l [facility] 2020-09-18 2020-09-19 Outpatient nullFlavo [facility] [id number] Memoria 14:47:00 04:59:00 r Jesús 10 l [facility] 2020-09-18 2020-09-18 Outpatient MANGIN, [facility] [id number] [facility] 09:47:00 23:59:00 SILVIO 2020-09-18 2020-09-18 Outpatient Mangin, [facility] [id number] 09:47:00 23:59:00 Silvio Caridad [place] 2018-06-13 2018-06-14 Outpatient nullFlavo [facility] [id number] Memoria 17:21:00 05:59:00 r Jesús 08 l [facility] 2018-06-13 2018-06-14 Outpatient nullFlavo [place] [id number] Memoria 17:21:00 05:59:00 r Jesús 08 l [facility] 2018-06-13 2018-06-13 Outpatient Mangin, [facility] [id number] 11:21:00 23:59:00 Silvio L 08 2017-11-15 2017-11-18 Inpatient nullFlavo [facility] [id number] Memoria 12:16:00 22:45:00 r Jesús 07 l [facility] 2017-11-15 2017-11-18 Inpatient nullFlavo [facility] [id number] Memoria 12:16:00 22:45:00 r Jesús 07 l [facility] 2017-11-15 2017-11-18 Outpatient Goyo, [facility] [id number] 07:16:00 17:45:00 [place] Rohan Paulino 2017-11-04 2017-11-05 Outpatient nullFlavo [facility] [id number] Memoria 14:00:00 04:59:00 r [place] 06 l [facility] 2017-11-04 2017-11-05 Outpatient nullFlavo [facility] [id number] Memoria 14:00:00 04:59:00 r [place] 06 l [facility] 2017-11-04 2017-11-04 Outpatient Mangin, [facility] [id number] 09:00:00 23:59:00 Silvio L 06 2017-11-04 2017-11-04 Outpatient Mangin, [facility] [id number] 09:00:00 23:59:00 Silvio L 06 2015-12-08 2015-12-09 Outpatient nullFlavo [facility] [id number] Memoria 13:55:00 04:59:00 r Jesús 05 l [facility] 2015-12-08 2015-12-09 [facility] [id number] [facility] 13:55:00 04:59:00 r [place] 05 l [facility] 2015-12-08 2015-12-08 Outpatient Mangin, [facility] [id number] 08:55:00 23:59:00 Silvio L 05 2014-02-06 2014-02-10 [facility] [id number] Memoria 10:56:00 20:45:00 r [place] 04 l [facility] 2014-02-06 2014-02-10 [facility] [id number] Memoria 10:56:00 20:45:00 r Jesús 04 l [facility] 2014-02-06 2014-02-10 Outpatient Farhana, [id number]. [id number]. [id number] 05:56:00 15:45:00 Ervin [id number] [facility] Ila [id number] 2794-08-08 2014-02-02 Outpt Diag nullFlavo [facility] [id number] Memoria 14:54:00 04:59:00 Services r Outpatient 01 l [facility] 2014-02-01 2014-02-02 Outpt Diag nullFlavo [facility] [id number] Memoria 14:54:00 04:59:00 Services r Outpatient 01 l [facility] 2014-02-01 2014-02-01 Outpatient Silverio, [id number]. [id number] . [id number] 09:54:00 23:59:00 Ike [id number] Danny [id number] 02 5631-06-16 2013-12-11 Outpatient [facility]Fl[facility] [id number] Memoria 18:00:00 04:59:00 r Jesús 03 l [facility] 2013-12-10 2013-12-11 Outpatient [facility] [id number] Memoria 18:00:00 04:59:00 r Jesús 03 l [facility] 2013-12-10 2013-12-10 Outpatient Mangin, [id number]. [id number]. 3 [id number] 13:00:00 23:59:00 Silvio L [id number] 2013-11-09 [id number] [facility] 12:00:00 04:59:00 r Jesús 02 l [facility] 2013-11-08 2013-11-09 [facility] [id number] Memoria 12:00:00 04:59:00 r Jesús 02 l [facility] 2013-11-08 2013-11-08 Outpatient Silverio [id number] . [id number] 07:00:00 23:59:00 Ike [id number]. [id number] Danny [id number] 24 7814-08-28 2013-03-02 Inpatient [facility] [id number] [facility] 05:43:00 15:23:00 r [facility] 2013-02-21 2013-03-02 Inpatient [facility] [id number] Memoria 05:43:00 15:23:00 r [facility] [place] 2013-01-05 2013-01-05 Outpatient [facility] [id number] Memoria 08:00:00 08:00:00 r [facility] 2013-01-05 2013-01-05 Outpatient [facility] [id number] Memoria 08:00:00 08:00:00 r [facility] Results Test Description Test Time Test Comments Results Result Comments Source CHEM PANEL 2021-01-14 09:22:00 Test Item Value Reference Range Interpretation Comme nts Glucose Lvl (test code = Glucose Lvl) 93 70-99 [facility]2021-07-21 09:22:00 Test Item Value Reference Range Interpretation Comments BUN (test code = BUN) 22 7-22 [facility]2021-07-21 09:22:00 Test Item Value Reference Range Interpretation Comments Creatinine Lvl (test code = Creatinine 0.70 0.50-1.40 Lvl) [facility]Bring[facility]ThatN[facility]ITALJDDUD1589-44-90 09:22:00 Test Item Value Reference Range Interpretation Comments Sodium Lvl (test code = Sodium Lvl) 137 135-145 [facility] [place] [id number] 09:22:00 Test Item Value Reference Range Interpretation Comments Potassium Lvl (test code = Potassium 4.0 3.5-5.1 Lvl) [facility]2021-07-21 09:22:00 Test Item Value Reference Range Interpretation Comments Chloride Lvl (test code = Chloride Lvl) 106 95-109 [facility] [place] 047311-07-21 09:22:00 Test Item Value Reference Range Interpretation Comments CO2 (test code = CO2) 26 24-32 [place] 831881-07-21 09:22:00 Test Item Value Reference Range Interpretation Comments AGAP (test code = AGAP) 9.0 10.0-20.0 [place] [address]-07-21 09:22:00 Test Item Value Reference Range Interpretation Comments Calcium Lvl (test code = Calcium Lvl) 8.0 8.5-10.5 [place] 831881-07-21 09:22:00 Test Item Value Reference Range Interpretation Comments eGFR (test code = eGFR) 89 [place] 831881-07-21 09:22:00 Test Item Value Reference Range Interpretation Comments Magnesium Lvl (test code = Magnesium 2.2 1.8-2.4 Lvl) [place] 831881-07-21 09:22:00 Test Item Value Reference Range Interpretation Comments Phosphorus (test code = Phosphorus) 3.3 2.5-4.5 [place] 362701-07-21 09:22:00 Test Item Value Reference Range Interpretation Comments PTT (test code = PTT) 31.9 s 22.9-35.8 [place] [address]-07-21 09:22:00 Test Item Value Reference Range Interpretation Comments PT (test code = PT) 14.0 s 12.0-14.7 [place] [address]-07-21 09:22:00 Test Item Value Reference Range Interpretation Comments INR (test code = INR) 1.09 1 0.85-1.17 [place] 362701-07-21 09:22:00 Test Item Value Reference Range Interpretation Comments WBC X 10x3 (test code = WBC X 10x3) 7.2 3.7-10.4 [place] [address]-07-21 09:22:00 Test Item Value Reference Range Interpretation Comments RBC X 10x6 (test code = RBC X 10x6) 3.44 4.20-5.40 [place] [address]-07-21 09:22:00 Test Item Value Reference Range Interpretation Comments Hgb (test code = Hgb) 10.9 12.0-16.0 [place] 362701-07-21 09:22:00 Test Item Value Reference Range Interpretation Comments Hct (test code = Hct) 31.9 36.0-48.0 [place] 362701-07-21 09:22:00 Test Item Value Reference Range Interpretation Comments MCV (test code = MCV) 92.7 80.0-98.0 [place] 362701-07-21 09:22:00 Test Item Value Reference Range Interpretation Comments MCH (test code = MCH) 31.6 pg 27.0-31.0 [place] 362701-07-21 09:22:00 Test Item Value Reference Range Interpretation Comments MCHC (test code = MCHC) 34.1 32.0-36.0 [place] 362701-07-21 09:22:00 Test Item Value Reference Range Interpretation Comments RDW (test code = RDW) 12.9 11.5-14.5 [place] 362701-07-21 09:22:00 Test Item Value Reference Range Interpretation Comments Platelet (test code = Platelet) 220 133-450 [place] 362701-07-21 09:22:00 Test Item Value Reference Range Interpretation Comments MPV (test code = MPV) 8.1 7.4-10.4 [place] 362701-07-21 09:22:00 Test Item Value Reference Range Interpretation Comments Segs (test code = Segs) 76.8 45.0-75.0 [place] 362701-07-21 09:22:00 Test Item Value Reference Range Interpretation Comments Lymphocytes (test code = Lymphocytes) 13.4 20.0-40.0 [place] 362701-07-21 09:22:00 Test Item Value Reference Range Interpretation Comments Monocytes (test code = Monocytes) 5.8 2.0-12.0 [place] 362701-07-21 09:22:00 Test Item Value Reference Range Interpretation Comments Eosinophils (test code = 3.2 See_Comment [A utomated message] The Eosinophils) system which ge nerated this result tra nsmitted reference range : <=4.0. The reference r katie was not used to int erpret this result as normal/abnormal . [place] 362701-07-21 09:22:00 Test Item Value Reference Range Interpretation Comments Basophils (test code = 0.8 See_Comment [Aut omated message] The Basophils) system which ge nerated this result tra nsmitted reference range : <=1.0. The reference r katie was not used to int erpret this result as normal/abnormal . [facility] HospitalTclbrylEHKBKPJDXL1641-88-98 09:22:00 Test Item Value Reference Range Interpretation Comments Neutrophils # (test code = Neutrophils 5.6 1.5-8.1 #) [facility] HospitalZqmbyyfRGHGERLWZX7695-38-19 09:22:00 Test Item Value Reference Range Interpretation Comments Lymphocytes # (test code = Lymphocytes 1.0 1.0-5.5 #) [facility] HospitalDsnrxjtINUHAVXRTW3052-18-17 09:22:00 Test Item Value Reference Range Interpretation Comments Monocytes # (test code 0.4 See_Comment [Aut omated message] The = Monocytes #) system which generated this result tra nsmitted reference range : <=0.8. The reference r katie was not used to int erpret this result as normal/abnormal . [facility] HospitalErarqahPHPNAZKDTX0387-80-49 09:22:00 Test Item Value Reference Range Interpretation Comments Eosinophils # (test code 0.2 See_Comment [A utomated message] The = Eosinophils #) system whic h generated this result tra nsmitted reference range : <=0.5. The reference r katie was not used to int erpret this result as normal/abnormal . [facility] HospitalDatzbtbPNBVJDJLXH8785-31-16 09:22:00 Test Item Value Reference Range Interpretation Comments Basophils # (test code 0.1 See_Comment [Aut omated message] The = Basophils #) system which generated this result tra nsmitted reference range : <=0.2. The reference r katie was not used to int erpret this result as normal/abnormal . [facility]RO[facility] FFRKZPB2410-24-86 09:22:00 Test Item Value Reference Range Interpretation Comments Ca Ion WB (test code = Ca Ion WB) 1.06 1.05-1.25 [facility]RO[facility] [id number] 09:22:00 Test Item Value Reference Range Interpretation Comments Ca Norm WB (test code = Ca Norm WB) 1.06 1.05-1.25 [facility] JKZYY4923-46-35 09:22:00 Test Item Value Reference Range Interpretation Comments Glucose Lvl (test code = Glucose Lvl) 93 70-99 [place] 831881-07-21 09:22:00 Test Item Value Reference Range Interpretation Comments BUN (test code = BUN) 22 7-22 [place] 831881-07-21 09:22:00 Test Item Value Reference Range Interpretation Comments Creatinine Lvl (test code = Creatinine 0.70 0.50-1.40 Lvl) [place] 831881-07-21 09:22:00 Test Item Value Reference Range Interpretation Comments Sodium Lvl (test code = Sodium Lvl) 137 135-145 [place] 831881-07-21 09:22:00 Test Item Value Reference Range Interpretation Comments Potassium Lvl (test code = Potassium 4.0 3.5-5.1 Lvl) [place] 831881-07-21 09:22:00 Test Item Value Reference Range Interpretation Comments Chloride Lvl (test code = Chloride Lvl) 106 95-109 [place] 831881-07-21 09:22:00 Test Item Value Reference Range Interpretation Comments CO2 (test code = CO2) 26 24-32 [place] 831881-07-21 09:22:00 Test Item Value Reference Range Interpretation Comments AGAP (test code = AGAP) 9.0 10.0-20.0 [place] 831881-07-21 09:22:00 Test Item Value Reference Range Interpretation Comments Calcium Lvl (test code = Calcium Lvl) 8.0 8.5-10.5 [place] 831881-07-21 09:22:00 Test Item Value Reference Range Interpretation Comments eGFR (test code = eGFR) 89 [place] 831881-07-21 09:22:00 Test Item Value Reference Range Interpretation Comments Magnesium Lvl (test code = Magnesium 2.2 1.8-2.4 Lvl) [place] 831881-07-21 09:22:00 Test Item Value Reference Range Interpretation Comments Phosphorus (test code = Phosphorus) 3.3 2.5-4.5 [place] 362701-07-21 09:22:00 Test Item Value Reference Range Interpretation Comments PTT (test code = PTT) 31.9 s 22.9-35.8 [place] 362701-07-21 09:22:00 Test Item Value Reference Range Interpretation Comments PT (test code = PT) 14.0 s 12.0-14.7 [facility] HospitalMyripgdICPIQZDYZR1426-60-87 09:22:00 Test Item Value Reference Range Interpretation Comments INR (test code = INR) 1.09 1 0.85-1.17 [place] 362701-07-21 09:22:00 Test Item Value Reference Range Interpretation Comments WBC X 10x3 (test code = WBC X 10x3) 7.2 3.7-10.4 [facility] HospitalJdcwnkmZTZLLKUSZW0158-53-28 09:22:00 Test Item Value Reference Range Interpretation Comments RBC X 10x6 (test code = RBC X 10x6) 3.44 4.20-5.40 [place] 362701-07-21 09:22:00 Test Item Value Reference Range Interpretation Comments Hgb (test code = Hgb) 10.9 12.0-16.0 [place] 362701-07-21 09:22:00 Test Item Value Reference Range Interpretation Comments Hct (test code = Hct) 31.9 36.0-48.0 [facility] HospitalOwijnoaAJHAXXCSTT4900-33-33 09:22:00 Test Item Value Reference Range Interpretation Comments MCV (test code = MCV) 92.7 80.0-98.0 [facility] HospitalKdexpxhJKSIHBFYRQ7654-17-36 09:22:00 Test Item Value Reference Range Interpretation Comments MCH (test code = MCH) 31.6 pg 27.0-31.0 [facility] HospitalMkkecnfSIDGLODFVR9321-71-95 09:22:00 Test Item Value Reference Range Interpretation Comments MCHC (test code = MCHC) 34.1 32.0-36.0 [facility] HospitalEsqkyqvKIBBPLAWCN4494-51-06 09:22:00 Test Item Value Reference Range Interpretation Comments RDW (test code = RDW) 12.9 11.5-14.5 [place] 362701-07-21 09:22:00 Test Item Value Reference Range Interpretation Comments Platelet (test code = Platelet) 220 133-450 [facility] HospitalYxfgchxNFJKPBJHEQ3272-12-99 09:22:00 Test Item Value Reference Range Interpretation Comments MPV (test code = MPV) 8.1 7.4-10.4 [place] 362701-07-21 09:22:00 Test Item Value Reference Range Interpretation Comments Segs (test code = Segs) 76.8 45.0-75.0 [place] 362701-07-21 09:22:00 Test Item Value Reference Range Interpretation Comments Lymphocytes (test code = Lymphocytes) 13.4 20.0-40.0 [place] 362701-07-21 09:22:00 Test Item Value Reference Range Interpretation Comments Monocytes (test code = Monocytes) 5.8 2.0-12.0 [place] 362701-07-21 09:22:00 Test Item Value Reference Range Interpretation Comments Eosinophils (test code = 3.2 See_Comment [A utomated message] The Eosinophils) system which ge nerated this result tra nsmitted reference range : <=4.0. The reference r katie was not used to int erpret this result as normal/abnormal . [place] 362701-07-21 09:22:00 Test Item Value Reference Range Interpretation Comments Basophils (test code = 0.8 See_Comment [Aut omated message] The Basophils) system which ge nerated this result tra nsmitted reference range : <=1.0. The reference r katie was not used to int erpret this result as normal/abnormal . [place] 362701-07-21 09:22:00 Test Item Value Reference Range Interpretation Comments Neutrophils # (test code = Neutrophils 5.6 1.5-8.1 #) [place] 362701-07-21 09:22:00 Test Item Value Reference Range Interpretation Comments Lymphocytes # (test code = Lymphocytes 1.0 1.0-5.5 #) [place] 362701-07-21 09:22:00 Test Item Value Reference Range Interpretation Comments Monocytes # (test code 0.4 See_Comment [Aut omated message] The = Monocytes #) system which generated this result tra nsmitted reference range : <=0.8. The reference r katie was not used to int erpret this result as normal/abnormal . [place] 362701-07-21 09:22:00 Test Item Value Reference Range Interpretation Comments Eosinophils # (test code 0.2 See_Comment [A utomated message] The = Eosinophils #) system whic h generated this result tra nsmitted reference range : <=0.5. The reference r katie was not used to int erpret this result as normal/abnormal . [facility]UleefvqJGUWTGLMSD7174-54-69 09:22:00 Test Item Value Reference Range Interpretation Comments Basophils # (test code 0.1 See_Comment [Aut omated message] The = Basophils #) system which generated this result tra nsmitted reference range : <=0.2. The reference r katie was not used to int erpret this result as normal/abnormal . [facility]2021-07-21 09:22:00 Test Item Value Reference Range Interpretation Comments Ca Ion WB (test code = Ca Ion WB) 1.06 1.05-1.25 [place] 245431-07-21 09:22:00 Test Item Value Reference Range Interpretation Comments Ca Norm WB (test code = Ca Norm WB) 1.06 1.05-1.25 [place] 831881-07-21 09:22:00 Test Item Value Reference Range Interpretation Comments Glucose Lvl (test code = Glucose Lvl) 93 70-99 [place] 831881-07-21 09:22:00 Test Item Value Reference Range Interpretation Comments BUN (test code = BUN) 22 7-22 [place] 831881-07-21 09:22:00 Test Item Value Reference Range Interpretation Comments Creatinine Lvl (test code = Creatinine 0.70 0.50-1.40 Lvl) [place] 831881-07-21 09:22:00 Test Item Value Reference Range Interpretation Comments Sodium Lvl (test code = Sodium Lvl) 137 135-145 [place] 831881-07-21 09:22:00 Test Item Value Reference Range Interpretation Comments Potassium Lvl (test code = Potassium 4.0 3.5-5.1 Lvl) [place] 831881-07-21 09:22:00 Test Item Value Reference Range Interpretation Comments Chloride Lvl (test code = Chloride Lvl) 106 95-109 [place] 831881-07-21 09:22:00 Test Item Value Reference Range Interpretation Comments CO2 (test code = CO2) 26 24-32 [place] 831881-07-21 09:22:00 Test Item Value Reference Range Interpretation Comments AGAP (test code = AGAP) 9.0 10.0-20.0 [place] 831881-07-21 09:22:00 Test Item Value Reference Range Interpretation Comments Calcium Lvl (test code = Calcium Lvl) 8.0 8.5-10.5 [place] 831881-07-21 09:22:00 Test Item Value Reference Range Interpretation Comments eGFR (test code = eGFR) 89 [place] 831881-07-21 09:22:00 Test Item Value Reference Range Interpretation Comments Magnesium Lvl (test code = Magnesium 2.2 1.8-2.4 Lvl) [place] 831881-07-21 09:22:00 Test Item Value Reference Range Interpretation Comments Phosphorus (test code = Phosphorus) 3.3 2.5-4.5 [place] [address]-07-21 09:22:00 Test Item Value Reference Range Interpretation Comments PTT (test code = PTT) 31.9 s 22.9-35.8 [place] 362701-07-21 09:22:00 Test Item Value Reference Range Interpretation Comments PT (test code = PT) 14.0 s 12.0-14.7 [place] 362701-07-21 09:22:00 Test Item Value Reference Range Interpretation Comments INR (test code = INR) 1.09 1 0.85-1.17 [place] 362701-07-21 09:22:00 Test Item Value Reference Range Interpretation Comments WBC X 10x3 (test code = WBC X 10x3) 7.2 3.7-10.4 [place] 362701-07-21 09:22:00 Test Item Value Reference Range Interpretation Comments RBC X 10x6 (test code = RBC X 10x6) 3.44 4.20-5.40 [place] 362701-07-21 09:22:00 Test Item Value Reference Range Interpretation Comments Hgb (test code = Hgb) 10.9 12.0-16.0 [place] [address]-07-21 09:22:00 Test Item Value Reference Range Interpretation Comments Hct (test code = Hct) 31.9 36.0-48.0 [place] [address]-07-21 09:22:00 Test Item Value Reference Range Interpretation Comments MCV (test code = MCV) 92.7 80.0-98.0 [place] [address]-07-21 09:22:00 Test Item Value Reference Range Interpretation Comments MCH (test code = MCH) 31.6 pg 27.0-31.0 [place] 362701-07-21 09:22:00 Test Item Value Reference Range Interpretation Comments MCHC (test code = MCHC) 34.1 32.0-36.0 [place] 362701-07-21 09:22:00 Test Item Value Reference Range Interpretation Comments RDW (test code = RDW) 12.9 11.5-14.5 [place] 362701-07-21 09:22:00 Test Item Value Reference Range Interpretation Comments Platelet (test code = Platelet) 220 133-450 [place] 362701-07-21 09:22:00 Test Item Value Reference Range Interpretation Comments MPV (test code = MPV) 8.1 7.4-10.4 [place] 362701-07-21 09:22:00 Test Item Value Reference Range Interpretation Comments Segs (test code = Segs) 76.8 45.0-75.0 [place] 362701-07-21 09:22:00 Test Item Value Reference Range Interpretation Comments Lymphocytes (test code = Lymphocytes) 13.4 20.0-40.0 [place] 362701-07-21 09:22:00 Test Item Value Reference Range Interpretation Comments Monocytes (test code = Monocytes) 5.8 2.0-12.0 [facility] HospitalJtmvgxsBSBCKNBOEN6345-43-94 09:22:00 Test Item Value Reference Range Interpretation Comments Eosinophils (test code = 3.2 See_Comment [A utomated message] The Eosinophils) system which ge nerated this result tra nsmitted reference range : <=4.0. The reference r katie was not used to int erpret this result as normal/abnormal . [place] 362701-07-21 09:22:00 Test Item Value Reference Range Interpretation Comments Basophils (test code = 0.8 See_Comment [Aut omated message] The Basophils) system which ge nerated this result tra nsmitted reference range : <=1.0. The reference r katie was not used to int erpret this result as normal/abnormal . [place] 362701-07-21 09:22:00 Test Item Value Reference Range Interpretation Comments Neutrophils # (test code = Neutrophils 5.6 1.5-8.1 #) [place] 362701-07-21 09:22:00 Test Item Value Reference Range Interpretation Comments Lymphocytes # (test code = Lymphocytes 1.0 1.0-5.5 #) [place] 362701-07-21 09:22:00 Test Item Value Reference Range Interpretation Comments Monocytes # (test code 0.4 See_Comment [Aut omated message] The = Monocytes #) system which generated this result tra nsmitted reference range : <=0.8. The reference r katie was not used to int erpret this result as normal/abnormal . [place] 362701-07-21 09:22:00 Test Item Value Reference Range Interpretation Comments Eosinophils # (test code 0.2 See_Comment [A utomated message] The = Eosinophils #) system whic h generated this result tra nsmitted reference range : <=0.5. The reference r katie was not used to int erpret this result as normal/abnormal . [place] 362701-07-21 09:22:00 Test Item Value Reference Range Interpretation Comments Basophils # (test code 0.1 See_Comment [Aut omated message] The = Basophils #) system which generated this result tra nsmitted reference range : <=0.2. The reference r katie was not used to int erpret this result as normal/abnormal . [facility]2021-07-21 09:22:00 Test Item Value Reference Range Interpretation Comments Ca Ion WB (test code = Ca Ion WB) 1.06 1.05-1.25 [place] 245431-07-21 09:22:00 Test Item Value Reference Range Interpretation Comments Ca Norm WB (test code = Ca Norm WB) 1.06 1.05-1.25 [place] 831881-07-21 09:22:00 Test Item Value Reference Range Interpretation Comments Glucose Lvl (test code = Glucose Lvl) 93 70-99 [place] 831881-07-21 09:22:00 Test Item Value Reference Range Interpretation Comments BUN (test code = BUN) 22 7-22 [place] 831881-07-21 09:22:00 Test Item Value Reference Range Interpretation Comments Creatinine Lvl (test code = Creatinine 0.70 0.50-1.40 Lvl) [place] 831881-07-21 09:22:00 Test Item Value Reference Range Interpretation Comments Sodium Lvl (test code = Sodium Lvl) 137 135-145 [place] 831881-07-21 09:22:00 Test Item Value Reference Range Interpretation Comments Potassium Lvl (test code = Potassium 4.0 3.5-5.1 Lvl) [place] 831881-07-21 09:22:00 Test Item Value Reference Range Interpretation Comments Chloride Lvl (test code = Chloride Lvl) 106 95-109 [place] 831881-07-21 09:22:00 Test Item Value Reference Range Interpretation Comments CO2 (test code = CO2) 26 24-32 [place] 831881-07-21 09:22:00 Test Item Value Reference Range Interpretation Comments AGAP (test code = AGAP) 9.0 10.0-20.0 [place] 831881-07-21 09:22:00 Test Item Value Reference Range Interpretation Comments Calcium Lvl (test code = Calcium Lvl) 8.0 8.5-10.5 [place] 831881-07-21 09:22:00 Test Item Value Reference Range Interpretation Comments eGFR (test code = eGFR) 89 [place] 831881-07-21 09:22:00 Test Item Value Reference Range Interpretation Comments Magnesium Lvl (test code = Magnesium 2.2 1.8-2.4 Lvl) [place] 831881-07-21 09:22:00 Test Item Value Reference Range Interpretation Comments Phosphorus (test code = Phosphorus) 3.3 2.5-4.5 [place] 362701-07-21 09:22:00 Test Item Value Reference Range Interpretation Comments PTT (test code = PTT) 31.9 s 22.9-35.8 [place] [address]-07-21 09:22:00 Test Item Value Reference Range Interpretation Comments PT (test code = PT) 14.0 s 12.0-14.7 [place] [address]-07-21 09:22:00 Test Item Value Reference Range Interpretation Comments INR (test code = INR) 1.09 1 0.85-1.17 [facility] HospitalAtuoeslSRVDOAKEBT3748-33-16 09:22:00 Test Item Value Reference Range Interpretation Comments WBC X 10x3 (test code = WBC X 10x3) 7.2 3.7-10.4 [facility] HospitalKswjxxnKMLRVXPMJW7693-74-40 09:22:00 Test Item Value Reference Range Interpretation Comments RBC X 10x6 (test code = RBC X 10x6) 3.44 4.20-5.40 [facility] HospitalBohsomgNVUSLOPCKZ0851-55-04 09:22:00 Test Item Value Reference Range Interpretation Comments Hgb (test code = Hgb) 10.9 12.0-16.0 [facility] HospitalEsticrpJIROAGINAO4653-93-26 09:22:00 Test Item Value Reference Range Interpretation Comments Hct (test code = Hct) 31.9 36.0-48.0 [facility] HospitalQeszklfORMPILJNHC6193-11-50 09:22:00 Test Item Value Reference Range Interpretation Comments MCV (test code = MCV) 92.7 80.0-98.0 [facility] HospitalOrwwewpBXDDFNTYSY1920-45-18 09:22:00 Test Item Value Reference Range Interpretation Comments MCH (test code = MCH) 31.6 pg 27.0-31.0 [facility] HospitalGlplptpQRUCWVYRTS7006-27-50 09:22:00 Test Item Value Reference Range Interpretation Comments MCHC (test code = MCHC) 34.1 32.0-36.0 [facility] HospitalAbljcqzCKKMXNAULN1650-79-47 09:22:00 Test Item Value Reference Range Interpretation Comments RDW (test code = RDW) 12.9 11.5-14.5 [facility] HospitalBodlqtpXPVVNPALWW0865-46-73 09:22:00 Test Item Value Reference Range Interpretation Comments Platelet (test code = Platelet) 220 133-450 [facility] HospitalTviapflIUHKTMPLNS6383-06-24 09:22:00 Test Item Value Reference Range Interpretation Comments MPV (test code = MPV) 8.1 7.4-10.4 [facility] HospitalSwboyfkNZXQWYZSZW3344-64-02 09:22:00 Test Item Value Reference Range Interpretation Comments Segs (test code = Segs) 76.8 45.0-75.0 [facility] HospitalZsuklzuSBQRNSZBYK2431-71-31 09:22:00 Test Item Value Reference Range Interpretation Comments Lymphocytes (test code = Lymphocytes) 13.4 20.0-40.0 [place] 362701-07-21 09:22:00 Test Item Value Reference Range Interpretation Comments Monocytes (test code = Monocytes) 5.8 2.0-12.0 [place] 362701-07-21 09:22:00 Test Item Value Reference Range Interpretation Comments Eosinophils (test code = 3.2 See_Comment [A utomated message] The Eosinophils) system which ge nerated this result tra nsmitted reference range : <=4.0. The reference r katie was not used to int erpret this result as normal/abnormal . [place] 362701-07-21 09:22:00 Test Item Value Reference Range Interpretation Comments Basophils (test code = 0.8 See_Comment [Aut omated message] The Basophils) system which ge nerated this result tra nsmitted reference range : <=1.0. The reference r katie was not used to int erpret this result as normal/abnormal . [place] 362701-07-21 09:22:00 Test Item Value Reference Range Interpretation Comments Neutrophils # (test code = Neutrophils 5.6 1.5-8.1 #) [place] 362701-07-21 09:22:00 Test Item Value Reference Range Interpretation Comments Lymphocytes # (test code = Lymphocytes 1.0 1.0-5.5 #) [place] 362701-07-21 09:22:00 Test Item Value Reference Range Interpretation Comments Monocytes # (test code 0.4 See_Comment [Aut omated message] The = Monocytes #) system which generated this result tra nsmitted reference range : <=0.8. The reference r ktaie was not used to int erpret this result as normal/abnormal . [place] 362701-07-21 09:22:00 Test Item Value Reference Range Interpretation Comments Eosinophils # (test code 0.2 See_Comment [A utomated message] The = Eosinophils #) system whic h generated this result tra nsmitted reference range : <=0.5. The reference r katie was not used to int erpret this result as normal/abnormal . [place] 362701-07-21 09:22:00 Test Item Value Reference Range Interpretation Comments Basophils # (test code 0.1 See_Comment [Aut omated message] The = Basophils #) system which generated this result tra nsmitted reference range : <=0.2. The reference r katie was not used to int erpret this result as normal/abnormal . [id number] Test Item Value Reference Range Interpretation Comments Ca Ion WB (test code = Ca Ion WB) 1.06 1.05-1.25 [facility] [id number] 09:22:00 Test Item Value Reference Range Interpretation Comments Ca Norm WB (test code = Ca Norm WB) 1.06 1.05-1.25 [place] 831881-07-21 09:22:00 Test Item Value Reference Range Interpretation Comments Glucose Lvl (test code = Glucose Lvl) 93 70-99 [place] 831881-07-21 09:22:00 Test Item Value Reference Range Interpretation Comments BUN (test code = BUN) 22 7-22 [place] 831881-07-21 09:22:00 Test Item Value Reference Range Interpretation Comments Creatinine Lvl (test code = Creatinine 0.70 0.50-1.40 Lvl) [place] 831881-07-21 09:22:00 Test Item Value Reference Range Interpretation Comments Sodium Lvl (test code = Sodium Lvl) 137 135-145 [place] 831881-07-21 09:22:00 Test Item Value Reference Range Interpretation Comments Potassium Lvl (test code = Potassium 4.0 3.5-5.1 Lvl) [place] 831881-07-21 09:22:00 Test Item Value Reference Range Interpretation Comments Chloride Lvl (test code = Chloride Lvl) 106 95-109 [place] 831881-07-21 09:22:00 Test Item Value Reference Range Interpretation Comments CO2 (test code = CO2) 26 24-32 [place] 831881-07-21 09:22:00 Test Item Value Reference Range Interpretation Comments AGAP (test code = AGAP) 9.0 10.0-20.0 [place] 831881-07-21 09:22:00 Test Item Value Reference Range Interpretation Comments Calcium Lvl (test code = Calcium Lvl) 8.0 8.5-10.5 [place] 831881-07-21 09:22:00 Test Item Value Reference Range Interpretation Comments eGFR (test code = eGFR) 89 [facility]2021-07-21 09:22:00 Test Item Value Reference Range Interpretation Comments Magnesium Lvl (test code = Magnesium 2.2 1.8-2.4 Lvl) [place] 831881-07-21 09:22:00 Test Item Value Reference Range Interpretation Comments Phosphorus (test code = Phosphorus) 3.3 2.5-4.5 [place] 362701-07-21 09:22:00 Test Item Value Reference Range Interpretation Comments PTT (test code = PTT) 31.9 s 22.9-35.8 [place] 362701-07-21 09:22:00 Test Item Value Reference Range Interpretation Comments PT (test code = PT) 14.0 s 12.0-14.7 [place] [address]-07-21 09:22:00 Test Item Value Reference Range Interpretation Comments INR (test code = INR) 1.09 1 0.85-1.17 [place] 362701-07-21 09:22:00 Test Item Value Reference Range Interpretation Comments WBC X 10x3 (test code = WBC X 10x3) 7.2 3.7-10.4 [place] 362701-07-21 09:22:00 Test Item Value Reference Range Interpretation Comments RBC X 10x6 (test code = RBC X 10x6) 3.44 4.20-5.40 [place] [address]-07-21 09:22:00 Test Item Value Reference Range Interpretation Comments Hgb (test code = Hgb) 10.9 12.0-16.0 [place] 362701-07-21 09:22:00 Test Item Value Reference Range Interpretation Comments Hct (test code = Hct) 31.9 36.0-48.0 [place] [address]-07-21 09:22:00 Test Item Value Reference Range Interpretation Comments MCV (test code = MCV) 92.7 80.0-98.0 [place] [address]-07-21 09:22:00 Test Item Value Reference Range Interpretation Comments MCH (test code = MCH) 31.6 pg 27.0-31.0 [place] [address]-07-21 09:22:00 Test Item Value Reference Range Interpretation Comments MCHC (test code = MCHC) 34.1 32.0-36.0 [facility]ExkdarbFXSCKPWSLB5566-80-14 09:22:00 Test Item Value Reference Range Interpretation Comments RDW (test code = RDW) 12.9 11.5-14.5 [facility] HospitalKvmcbwtHXQJSUBDIC2738-97-04 09:22:00 Test Item Value Reference Range Interpretation Comments Platelet (test code = Platelet) 220 133-450 [facility] HospitalDfajvtkHRZBUSIVTR0469-81-31 09:22:00 Test Item Value Reference Range Interpretation Comments MPV (test code = MPV) 8.1 7.4-10.4 [facility] HospitalUqrjfwiYNRMUGDKRC3551-83-04 09:22:00 Test Item Value Reference Range Interpretation Comments Segs (test code = Segs) 76.8 45.0-75.0 [facility] HospitalHlsrkleLJPGAOTKON6987-22-50 09:22:00 Test Item Value Reference Range Interpretation Comments Lymphocytes (test code = Lymphocytes) 13.4 20.0-40.0 [facility] HospitalCnjezasNTULGXJZZI3185-27-64 09:22:00 Test Item Value Reference Range Interpretation Comments Monocytes (test code = Monocytes) 5.8 2.0-12.0 [facility] HospitalOcmdchpHKKIQDGAMQ4711-30-14 09:22:00 Test Item Value Reference Range Interpretation Comments Eosinophils (test code = 3.2 See_Comment [A utomated message] The Eosinophils) system which ge nerated this result tra nsmitted reference range : <=4.0. The reference r katie was not used to int erpret this result as normal/abnormal . [facility] HospitalWnvdqidNRRRIEWRXP4784-54-78 09:22:00 Test Item Value Reference Range Interpretation Comments Basophils (test code = 0.8 See_Comment [Aut omated message] The Basophils) system which ge nerated this result tra nsmitted reference range : <=1.0. The reference r katie was not used to int erpret this result as normal/abnormal . [facility] HospitalJcqankaIGETDSQKPA7398-15-83 09:22:00 Test Item Value Reference Range Interpretation Comments Neutrophils # (test code = Neutrophils 5.6 1.5-8.1 #) [facility] HospitalLjbjkgwLALEVVLMJF6456-79-14 09:22:00 Test Item Value Reference Range Interpretation Comments Lymphocytes # (test code = Lymphocytes 1.0 1.0-5.5 #) [place] 362701-07-21 09:22:00 Test Item Value Reference Range Interpretation Comments Monocytes # (test code 0.4 See_Comment [Aut omated message] The = Monocytes #) system which generated this result tra nsmitted reference range : <=0.8. The reference r katie was not used to int erpret this result as normal/abnormal . [facility] HospitalTnjzaivEUZWWWSJCZ3463-92-86 09:22:00 Test Item Value Reference Range Interpretation Comments Eosinophils # (test code 0.2 See_Comment [A utomated message] The = Eosinophils #) system whic h generated this result tra nsmitted reference range : <=0.5. The reference r katie was not used to int erpret this result as normal/abnormal . [facility] HospitalTllovkiUQLHBROTML3432-59-24 09:22:00 Test Item Value Reference Range Interpretation Comments Basophils # (test code 0.1 See_Comment [Aut omated message] The = Basophils #) system which generated this result tra nsmitted reference range : <=0.2. The reference r katie was not used to int erpret this result as normal/abnormal . [place] 245431-07-21 09:22:00 Test Item Value Reference Range Interpretation Comments Ca Ion WB (test code = Ca Ion WB) 1.06 1.05-1.25 [facility]EconothermJULIE [facility] [address]67BNHCLRG5611-36-04 09:22:00 Test Item Value Reference Range Interpretation Comments Ca Norm WB (test code = Ca Norm WB) 1.06 1.05-1.25 [facility]Princ[facility] [id number] 09:22:00 Test Item Value Reference Range Interpretation Comments Glucose Lvl (test code = Glucose Lvl) 93 70-99 [facility]Princ[facility] [id number] 09:22:00 Test Item Value Reference Range Interpretation Comments BUN (test code = BUN) 22 7-22 [facility] [id number] 09:22:00 Test Item Value Reference Range Interpretation Comments Creatinine Lvl (test code = Creatinine 0.70 0.50-1.40 Lvl) [place] 831881-07-21 09:22:00 Test Item Value Reference Range Interpretation Comments Sodium Lvl (test code = Sodium Lvl) 137 135-145 [facility] CenterJESSICA [facility] 8[address]77RKGZJ4751-58-92 09:22:00 Test Item Value Reference Range Interpretation Comments Potassium Lvl (test code = Potassium 4.0 3.5-5.1 Lvl) [place] 831881-07-21 09:22:00 Test Item Value Reference Range Interpretation Comments Chloride Lvl (test code = Chloride Lvl) 106 95-109 [place] 831881-07-21 09:22:00 Test Item Value Reference Range Interpretation Comments CO2 (test code = CO2) 26 24-32 [place] 831881-07-21 09:22:00 Test Item Value Reference Range Interpretation Comments AGAP (test code = AGAP) 9.0 10.0-20.0 [place] 831881-07-21 09:22:00 Test Item Value Reference Range Interpretation Comments Calcium Lvl (test code = Calcium Lvl) 8.0 8.5-10.5 [place] 831881-07-21 09:22:00 Test Item Value Reference Range Interpretation Comments eGFR (test code = eGFR) 89 [place] 831881-07-21 09:22:00 Test Item Value Reference Range Interpretation Comments Magnesium Lvl (test code = Magnesium 2.2 1.8-2.4 Lvl) [place] 831881-07-21 09:22:00 Test Item Value Reference Range Interpretation Comments Phosphorus (test code = Phosphorus) 3.3 2.5-4.5 [place] 362701-07-21 09:22:00 Test Item Value Reference Range Interpretation Comments PTT (test code = PTT) 31.9 s 22.9-35.8 [place] [address]-07-21 09:22:00 Test Item Value Reference Range Interpretation Comments PT (test code = PT) 14.0 s 12.0-14.7 [place] [address]-07-21 09:22:00 Test Item Value Reference Range Interpretation Comments INR (test code = INR) 1.09 1 0.85-1.17 [place] [address]-07-21 09:22:00 Test Item Value Reference Range Interpretation Comments WBC X 10x3 (test code = WBC X 10x3) 7.2 3.7-10.4 [place] 362701-07-21 09:22:00 Test Item Value Reference Range Interpretation Comments RBC X 10x6 (test code = RBC X 10x6) 3.44 4.20-5.40 [place] 362701-07-21 09:22:00 Test Item Value Reference Range Interpretation Comments Hgb (test code = Hgb) 10.9 12.0-16.0 [place] 362701-07-21 09:22:00 Test Item Value Reference Range Interpretation Comments Hct (test code = Hct) 31.9 36.0-48.0 [place] 362701-07-21 09:22:00 Test Item Value Reference Range Interpretation Comments MCV (test code = MCV) 92.7 80.0-98.0 [place] 362701-07-21 09:22:00 Test Item Value Reference Range Interpretation Comments MCH (test code = MCH) 31.6 pg 27.0-31.0 [place] 362701-07-21 09:22:00 Test Item Value Reference Range Interpretation Comments MCHC (test code = MCHC) 34.1 32.0-36.0 [place] 362701-07-21 09:22:00 Test Item Value Reference Range Interpretation Comments RDW (test code = RDW) 12.9 11.5-14.5 [facility] HospitalMvujtxxXNXEHUBZQH6176-97-69 09:22:00 Test Item Value Reference Range Interpretation Comments Platelet (test code = Platelet) 220 133-450 [facility] HospitalDjncpdsDINSFOKYBP2364-12-97 09:22:00 Test Item Value Reference Range Interpretation Comments MPV (test code = MPV) 8.1 7.4-10.4 [place] 362701-07-21 09:22:00 Test Item Value Reference Range Interpretation Comments Segs (test code = Segs) 76.8 45.0-75.0 [facility] HospitalOpnctzvUGVTWUIUYZ8495-80-21 09:22:00 Test Item Value Reference Range Interpretation Comments Lymphocytes (test code = Lymphocytes) 13.4 20.0-40.0 [place] 362701-07-21 09:22:00 Test Item Value Reference Range Interpretation Comments Monocytes (test code = Monocytes) 5.8 2.0-12.0 [place] 362701-07-21 09:22:00 Test Item Value Reference Range Interpretation Comments Eosinophils (test code = 3.2 See_Comment [A utomated message] The Eosinophils) system which ge nerated this result tra nsmitted reference range : <=4.0. The reference r katie was not used to int erpret this result as normal/abnormal . [facility] HospitalBwebrqxCHNGWKTZQH4716-02-15 09:22:00 Test Item Value Reference Range Interpretation Comments Basophils (test code = 0.8 See_Comment [Aut omated message] The Basophils) system which ge nerated this result tra nsmitted reference range : <=1.0. The reference r katie was not used to int erpret this result as normal/abnormal . [facility] HospitalNwwhifbPSECMRLIIM0685-48-55 09:22:00 Test Item Value Reference Range Interpretation Comments Neutrophils # (test code = Neutrophils 5.6 1.5-8.1 #) [facility] HospitalMwmakajVYHXLYWAZN3272-74-81 09:22:00 Test Item Value Reference Range Interpretation Comments Lymphocytes # (test code = Lymphocytes 1.0 1.0-5.5 #) [facility] HospitalXarmsnfZKOFZVTBOA3491-56-69 09:22:00 Test Item Value Reference Range Interpretation Comments Monocytes # (test code 0.4 See_Comment [Aut omated message] The = Monocytes #) system which generated this result tra nsmitted reference range : <=0.8. The reference r katie was not used to int erpret this result as normal/abnormal . [facility] HospitalVqbjityBOJKPQRSTH5396-98-75 09:22:00 Test Item Value Reference Range Interpretation Comments Eosinophils # (test code 0.2 See_Comment [A utomated message] The = Eosinophils #) system [facility] h generated this result tra nsmitted reference range : <=0.5. The reference r katie was not used to int erpret this result as normal/abnormal . [facility] HospitalHmwcdyaGAEPBZMDTZ2651-85-57 09:22:00 Test Item Value Reference Range Interpretation Comments Basophils # (test code 0.1 See_Comment [Aut omated message] The = Basophils #) system which generated this result tra nsmitted reference range : <=0.2. The reference r katie was not used to int erpret this result as normal/abnormal . [facility]2021-07-21 09:22:00 Test Item Value Reference Range Interpretation Comments Ca Ion WB (test code = Ca Ion WB) 1.06 1.05-1.25 [facility] CenterPARATHYROID FXJESND5216-34-08 09:22:00 Test Item Value Reference Range Interpretation Comments Ca Norm WB (test code = Ca Norm WB) 1.06 1.05-1.25 [facility]2021-07-20 16:03:00 Test Item Value Reference Range Interpretation Comments Glucose Lvl (test code = Glucose Lvl) 112 70-99 [facility]2021-07-20 16:03:00 Test Item Value Reference Range Interpretation Comments BUN (test code = BUN) 39 7-22 [facility]2021-07-20 16:03:00 Test Item Value Reference Range Interpretation Comments Creatinine Lvl (test code = Creatinine 1.00 0.50-1.40 Lvl) [facility]2021-07-20 16:03:00 Test Item Value Reference Range Interpretation Comments Sodium Lvl (test code = Sodium Lvl) 139 135-145 [facility]2021-07-20 16:03:00 Test Item Value Reference Range Interpretation Comments Potassium Lvl (test code = Potassium 4.1 3.5-5.1 Lvl) [facility]2021-07-20 16:03:00 Test Item Value Reference Range Interpretation Comments Chloride Lvl (test code = Chloride Lvl) 109 95-109 [facility]2021-07-20 16:03:00 Test Item Value Reference Range Interpretation Comments CO2 (test code = CO2) 26 24-32 [facility]2021-07-20 16:03:00 Test Item Value Reference Range Interpretation Comments Calcium Lvl (test code = Calcium Lvl) 8.2 8.5-10.5 [facility]2021-07-20 16:03:00 Test Item Value Reference Range Interpretation Comments AGAP (test code = AGAP) 8.1 10.0-20.0 [facility]2021-07-20 16:03:00 Test Item Value Reference Range Interpretation Comments eGFR (test code = eGFR) 58 [facility]2021-07-20 16:03:00 Test Item Value Reference Range Interpretation Comments Magnesium Lvl (test code = Magnesium 2.1 1.8-2.4 Lvl) [facility]2021-07-20 16:03:00 Test Item Value Reference Range Interpretation Comments Phosphorus (test code = Phosphorus) 3.8 2.5-4.5 [facility] HospitalKqygeicMRGATFUXKU2785-98-60 16:03:00 Test Item Value Reference Range Interpretation Comments WBC X 10x3 (test code = WBC X 10x3) 6.7 3.7-10.4 [facility] HospitalHokndklHBTSHUWPZH5979-48-16 16:03:00 Test Item Value Reference Range Interpretation Comments RBC X 10x6 (test code = RBC X 10x6) 3.06 4.20-5.40 [facility] HospitalYxzraypUMCZKTCXAY6562-28-10 16:03:00 Test Item Value Reference Range Interpretation Comments Hgb (test code = Hgb) 9.6 12.0-16.0 [facility] HospitalPzkrieuDTWGQCKLQB2087-66-27 16:03:00 Test Item Value Reference Range Interpretation Comments Hct (test code = Hct) 29.1 36.0-48.0 [facility] HospitalEwvelmhYHEUJACGSH5708-51-75 16:03:00 Test Item Value Reference Range Interpretation Comments MCV (test code = MCV) 95.2 80.0-98.0 [facility] HospitalUehnshkDPUTGSNFEQ2174-53-88 16:03:00 Test Item Value Reference Range Interpretation Comments MCH (test code = MCH) 31.3 pg 27.0-31.0 [facility] HospitalLunykdyKGEEWNOJTF6763-84-08 16:03:00 Test Item Value Reference Range Interpretation Comments MCHC (test code = MCHC) 32.9 32.0-36.0 [facility] HospitalBlgyftpVNZGBKLKFE8318-86-04 16:03:00 Test Item Value Reference Range Interpretation Comments RDW (test code = RDW) 12.4 11.5-14.5 [facility] HospitalNpjgnnqUZSYYEKIRY7591-71-43 16:03:00 Test Item Value Reference Range Interpretation Comments Platelet (test code = Platelet) 182 133-450 [facility] HospitalXdvzladDQXVPXQHUQ6232-12-49 16:03:00 Test Item Value Reference Range Interpretation Comments MPV (test code = MPV) 7.6 7.4-10.4 [facility] HospitalDrpgjwtTXDMCAUELI0198-61-82 16:03:00 Test Item Value Reference Range Interpretation Comments PT (test code = PT) 13.2 s 12.0-14.7 [facility] HospitalPwehkfjACNYKXWOXY9631-57-42 16:03:00 Test Item Value Reference Range Interpretation Comments INR (test code = INR) 1.01 1 0.85-1.17 [place] 362701-07-20 16:03:00 Test Item Value Reference Range Interpretation Comments PTT (test code = PTT) 36.4 s 22.9-35.8 [place] 362701-07-20 16:03:00 Test Item Value Reference Range Interpretation Comments Segs (test code = Segs) 55.4 45.0-75.0 [facility] HospitalWihcwdzBRSLKDWNYE8142-75-95 16:03:00 Test Item Value Reference Range Interpretation Comments Lymphocytes (test code = Lymphocytes) 33.2 20.0-40.0 [place] 362701-07-20 16:03:00 Test Item Value Reference Range Interpretation Comments Monocytes (test code = Monocytes) 3.6 2.0-12.0 [place] 362701-07-20 16:03:00 Test Item Value Reference Range Interpretation Comments Eosinophils (test code = 6.3 See_Comment [A utomated message] The Eosinophils) system which ge nerated this result tra nsmitted reference range : <=4.0. The reference r katie was not used to int erpret this result as normal/abnormal . [facility] HospitalJmtnsbjZMFDMOQVZY4725-97-59 16:03:00 Test Item Value Reference Range Interpretation Comments Basophils (test code = 1.5 See_Comment [Aut omated message] The Basophils) system which ge nerated this result tra nsmitted reference range : <=1.0. The reference r katie was not used to int erpret this result as normal/abnormal . [facility] HospitalZcoazfaHQPWRBIZNN7232-61-33 16:03:00 Test Item Value Reference Range Interpretation Comments Neutrophils # (test code = Neutrophils 3.7 1.5-8.1 #) [facility] HospitalHrutsnqCAMYAYUNHZ1153-38-34 16:03:00 Test Item Value Reference Range Interpretation Comments Lymphocytes # (test code = Lymphocytes 2.2 1.0-5.5 #) [facility] HospitalIivwmiqERVACTCEBK4774-12-74 16:03:00 Test Item Value Reference Range Interpretation Comments Monocytes # (test code 0.2 See_Comment [Aut omated message] The = Monocytes #) system which generated this result tra nsmitted reference range : <=0.8. The reference r katie was not used to int erpret this result as normal/abnormal . [facility] CenterIqxlhazAHACLBUFOS5209-65-89 16:03:00 Test Item Value Reference Range Interpretation Comments Eosinophils # (test code 0.4 See_Comment [A utomated message] The = Eosinophils #) system whic h generated this result tra nsmitted reference range : <=0.5. The reference r katie was not used to int erpret this result as normal/abnormal . [facility] CenterAzptkahBMLPJREIMS3357-02-06 16:03:00 Test Item Value Reference Range Interpretation Comments Basophils # (test code 0.1 See_Comment [Aut omated message] The = Basophils #) system which generated this result tra nsmitted reference range : <=0.2. The reference r katie was not used to int erpret this result as normal/abnormal . [facility] HospitalDchkhaxXKWKQI9441-84-85 16:03:00 Test Item Value Reference Range Interpretation Comments Trig (test code = Trig) 64 [facility] HospitalSbjvwhkQPXXYC6089-51-18 16:03:00 Test Item Value Reference Range Interpretation Comments Chol (test code = Chol) 135 [facility] HospitalLvsvzpgNHPVAV3906-14-24 16:03:00 Test Item Value Reference Range Interpretation Comments HDL (test code = HDL) 33 [facility] HospitalXmnrgrqVGERTW0423-20-04 16:03:00 Test Item Value Reference Range Interpretation Comments CHD Risk (test code = CHD Risk) 4.09 1 3.90-5.80 [facility] HospitalKwhxxrhAUOFRF6844-01-83 16:03:00 Test Item Value Reference Range Interpretation Comments LDL (Calculated) (test code = LDL 89 (Calculated)) [facility] HospitalEfjbhnnMNBWLN8164-41-35 16:03:00 Test Item Value Reference Range Interpretation Comments VLDL (test code = VLDL) 13 1 [facility] HospitalannPARATHYROID LDKGYDV0249-14-63 16:03:00 Test Item Value Reference Range Interpretation Comments Ca Ion WB (test code = Ca Ion WB) 1.13 1.05-1.25 [facility] HospitalannPARATHYROID JAXWSGZ7938-78-32 16:03:00 Test Item Value Reference Range Interpretation Comments Ca Norm WB (test code = Ca Norm WB) 1.10 1.05-1.25 [facility] HospitalannCHEM IWREI0519-59-13 16:03:00 Test Item Value Reference Range Interpretation Comments Glucose Lvl (test code = Glucose Lvl) 112 70-99 [facility]2021-07-20 16:03:00 Test Item Value Reference Range Interpretation Comments BUN (test code = BUN) 39 7-22 [facility]2021-07-20 16:03:00 Test Item Value Reference Range Interpretation Comments Creatinine Lvl (test code = Creatinine 1.00 0.50-1.40 Lvl) [facility]2021-07-20 16:03:00 Test Item Value Reference Range Interpretation Comments Sodium Lvl (test code = Sodium Lvl) 139 135-145 [facility]2021-07-20 16:03:00 Test Item Value Reference Range Interpretation Comments Potassium Lvl (test code = Potassium 4.1 3.5-5.1 Lvl) [facility]2021-07-20 16:03:00 Test Item Value Reference Range Interpretation Comments Chloride Lvl (test code = Chloride Lvl) 109 95-109 [facility]2021-07-20 16:03:00 Test Item Value Reference Range Interpretation Comments CO2 (test code = CO2) 26 24-32 [facility]2021-07-20 16:03:00 Test Item Value Reference Range Interpretation Comments Calcium Lvl (test code = Calcium Lvl) 8.2 8.5-10.5 [facility]2021-07-20 16:03:00 Test Item Value Reference Range Interpretation Comments AGAP (test code = AGAP) 8.1 10.0-20.0 [facility]2021-07-20 16:03:00 Test Item Value Reference Range Interpretation Comments eGFR (test code = eGFR) 58 [facility]2021-07-20 16:03:00 Test Item Value Reference Range Interpretation Comments Magnesium Lvl (test code = Magnesium 2.1 1.8-2.4 Lvl) [facility]2021-07-20 16:03:00 Test Item Value Reference Range Interpretation Comments Phosphorus (test code = Phosphorus) 3.8 2.5-4.5 [place] 362701-07-20 16:03:00 Test Item Value Reference Range Interpretation Comments WBC X 10x3 (test code = WBC X 10x3) 6.7 3.7-10.4 [place] 362701-07-20 16:03:00 Test Item Value Reference Range Interpretation Comments RBC X 10x6 (test code = RBC X 10x6) 3.06 4.20-5.40 [facility]OqujboeOIRJRPOOUZ0233-45-89 16:03:00 Test Item Value Reference Range Interpretation Comments Hgb (test code = Hgb) 9.6 12.0-16.0 [facility] HospitalGvphfhsWNCFUDLFBL5588-18-16 16:03:00 Test Item Value Reference Range Interpretation Comments Hct (test code = Hct) 29.1 36.0-48.0 [facility] HospitalCedbflwOGOABPQGHC7385-77-56 16:03:00 Test Item Value Reference Range Interpretation Comments MCV (test code = MCV) 95.2 80.0-98.0 [facility] HospitalMbhhcqjVZOUTDOCEN8492-07-74 16:03:00 Test Item Value Reference Range Interpretation Comments MCH (test code = MCH) 31.3 pg 27.0-31.0 [facility] HospitalVazpwbtBRSDATPSLB3805-33-97 16:03:00 Test Item Value Reference Range Interpretation Comments MCHC (test code = MCHC) 32.9 32.0-36.0 [facility] HospitalXtqtjzsKXWZSAUGSU3954-28-50 16:03:00 Test Item Value Reference Range Interpretation Comments RDW (test code = RDW) 12.4 11.5-14.5 [facility] HospitalBhrpjpgAHCYANQSRI5691-15-08 16:03:00 Test Item Value Reference Range Interpretation Comments Platelet (test code = Platelet) 182 133-450 [facility] HospitalUmutkxxRECHFZHCUD3540-25-54 16:03:00 Test Item Value Reference Range Interpretation Comments MPV (test code = MPV) 7.6 7.4-10.4 [facility] HospitalWukiukhYBWWKTPZLP5377-96-03 16:03:00 Test Item Value Reference Range Interpretation Comments PT (test code = PT) 13.2 s 12.0-14.7 [facility] HospitalJtsydrzNNNZJYPCZY6363-81-54 16:03:00 Test Item Value Reference Range Interpretation Comments INR (test code = INR) 1.01 1 0.85-1.17 [place] 362701-07-20 16:03:00 Test Item Value Reference Range Interpretation Comments PTT (test code = PTT) 36.4 s 22.9-35.8 [facility] HospitalRcqsncjJQHSUDJKKX4989-13-38 16:03:00 Test Item Value Reference Range Interpretation Comments Segs (test code = Segs) 55.4 45.0-75.0 [facility] HospitalRdyononCOLNXAQESO1636-99-83 16:03:00 Test Item Value Reference Range Interpretation Comments Lymphocytes (test code = Lymphocytes) 33.2 20.0-40.0 [place] 362701-07-20 16:03:00 Test Item Value Reference Range Interpretation Comments Monocytes (test code = Monocytes) 3.6 2.0-12.0 [place] 362701-07-20 16:03:00 Test Item Value Reference Range Interpretation Comments Eosinophils (test code = 6.3 See_Comment [A utomated message] The Eosinophils) system which ge nerated this result tra nsmitted reference range : <=4.0. The reference r katie was not used to int erpret this result as normal/abnormal . [place] 362701-07-20 16:03:00 Test Item Value Reference Range Interpretation Comments Basophils (test code = 1.5 See_Comment [Aut omated message] The Basophils) system which ge nerated this result tra nsmitted reference range : <=1.0. The reference r katie was not used to int erpret this result as normal/abnormal . [facility] HospitalItbmlylCOGRNWXTUF7221-30-43 16:03:00 Test Item Value Reference Range Interpretation Comments Neutrophils # (test code = Neutrophils 3.7 1.5-8.1 #) [facility] HospitalFhhedhnLUCJHOQOEF6024-18-25 16:03:00 Test Item Value Reference Range Interpretation Comments Lymphocytes # (test code = Lymphocytes 2.2 1.0-5.5 #) [facility] HospitalGoqtdcjDIXNQHWMYS0261-36-67 16:03:00 Test Item Value Reference Range Interpretation Comments Monocytes # (test code 0.2 See_Comment [Aut omated message] The = Monocytes #) system which generated this result tra nsmitted reference range : <=0.8. The reference r katie was not used to int erpret this result as normal/abnormal . [place] 362701-07-20 16:03:00 Test Item Value Reference Range Interpretation Comments Eosinophils # (test code 0.4 See_Comment [A utomated message] The = Eosinophils #) system whic h generated this result tra nsmitted reference range : <=0.5. The reference r katie was not used to int erpret this result as normal/abnormal . [facility] CenterZdwyfxxSPGSWCJQTN1566-08-16 16:03:00 Test Item Value Reference Range Interpretation Comments Basophils # (test code 0.1 See_Comment [Aut omated message] The = Basophils #) system which generated this result tra nsmitted reference range : <=0.2. The reference r katie was not used to int erpret this result as normal/abnormal . [facility] CenterDtnruafVEAYIB3683-14-55 16:03:00 Test Item Value Reference Range Interpretation Comments Trig (test code = Trig) 64 [facility] CenterEuyulfxXCSASU4668-85-32 16:03:00 Test Item Value Reference Range Interpretation Comments Chol (test code = Chol) 135 [facility] CenterRskladkMUWYSK7233-97-52 16:03:00 Test Item Value Reference Range Interpretation Comments HDL (test code = HDL) 33 [facility] CenterJnywsqvJXESJU1614-29-72 16:03:00 Test Item Value Reference Range Interpretation Comments CHD Risk (test code = CHD Risk) 4.09 1 3.90-5.80 [facility] CenterDkzhvzpIZTKRA8148-91-10 16:03:00 Test Item Value Reference Range Interpretation Comments LDL (Calculated) (test code = LDL 89 (Calculated)) [facility] CenterMupbsgnURIRMQ3083-42-63 16:03:00 Test Item Value Reference Range Interpretation Comments VLDL (test code = VLDL) 13 1 [facility]BringMeThatPARATHYROID VPQCOGY5314-27-34 16:03:00 Test Item Value Reference Range Interpretation Comments Ca Ion WB (test code = Ca Ion WB) 1.13 1.05-1.25 [facility] HospitalBringMeThatPARATHYROID ESQIAIW2469-22-84 16:03:00 Test Item Value Reference Range Interpretation Comments Ca Norm WB (test code = Ca Norm WB) 1.10 1.05-1.25 [facility] [id number] 16:03:00 Test Item Value Reference Range Interpretation Comments Glucose Lvl (test code = Glucose Lvl) 112 70-99 [facility] [id number] 16:03:00 Test Item Value Reference Range Interpretation Comments BUN (test code = BUN) 39 7-22 [facility] [id number] 16:03:00 Test Item Value Reference Range Interpretation Comments Creatinine Lvl (test code = Creatinine 1.00 0.50-1.40 Lvl) [place] 831881-07-20 16:03:00 Test Item Value Reference Range Interpretation Comments Sodium Lvl (test code = Sodium Lvl) 139 135-145 [place] 831881-07-20 16:03:00 Test Item Value Reference Range Interpretation Comments Potassium Lvl (test code = Potassium 4.1 3.5-5.1 Lvl) [place] 831881-07-20 16:03:00 Test Item Value Reference Range Interpretation Comments Chloride Lvl (test code = Chloride Lvl) 109 95-109 [place] 831881-07-20 16:03:00 Test Item Value Reference Range Interpretation Comments CO2 (test code = CO2) 26 24-32 [place] 831881-07-20 16:03:00 Test Item Value Reference Range Interpretation Comments Calcium Lvl (test code = Calcium Lvl) 8.2 8.5-10.5 [place] 831881-07-20 16:03:00 Test Item Value Reference Range Interpretation Comments AGAP (test code = AGAP) 8.1 10.0-20.0 [place] 831881-07-20 16:03:00 Test Item Value Reference Range Interpretation Comments eGFR (test code = eGFR) 58 [place] 831881-07-20 16:03:00 Test Item Value Reference Range Interpretation Comments Magnesium Lvl (test code = Magnesium 2.1 1.8-2.4 Lvl) [facility]2021-07-20 16:03:00 Test Item Value Reference Range Interpretation Comments Phosphorus (test code = Phosphorus) 3.8 2.5-4.5 [place] 362701-07-20 16:03:00 Test Item Value Reference Range Interpretation Comments WBC X 10x3 (test code = WBC X 10x3) 6.7 3.7-10.4 [place] 362701-07-20 16:03:00 Test Item Value Reference Range Interpretation Comments RBC X 10x6 (test code = RBC X 10x6) 3.06 4.20-5.40 [place] 362701-07-20 16:03:00 Test Item Value Reference Range Interpretation Comments Hgb (test code = Hgb) 9.6 12.0-16.0 [facility] HospitalPcirswnUCLVYVKHXW4822-04-12 16:03:00 Test Item Value Reference Range Interpretation Comments Hct (test code = Hct) 29.1 36.0-48.0 [facility] HospitalOsblepkMJODXFARUC0571-75-21 16:03:00 Test Item Value Reference Range Interpretation Comments MCV (test code = MCV) 95.2 80.0-98.0 [facility] HospitalFbanoxzFPMGHTBOAO4417-69-38 16:03:00 Test Item Value Reference Range Interpretation Comments MCH (test code = MCH) 31.3 pg 27.0-31.0 [facility] HospitalXfexmtaBOFCECHSSP3776-50-52 16:03:00 Test Item Value Reference Range Interpretation Comments MCHC (test code = MCHC) 32.9 32.0-36.0 [facility] HospitalGizodphFYHGGQCOZX9940-99-76 16:03:00 Test Item Value Reference Range Interpretation Comments RDW (test code = RDW) 12.4 11.5-14.5 [facility] HospitalAhazttvXOWIVOAJYH2320-43-55 16:03:00 Test Item Value Reference Range Interpretation Comments Platelet (test code = Platelet) 182 133-450 [facility] HospitalZzfqbipOANVIBWNLX2279-63-50 16:03:00 Test Item Value Reference Range Interpretation Comments MPV (test code = MPV) 7.6 7.4-10.4 [facility] HospitalJrjqfbmZQGGETWJYO3645-21-94 16:03:00 Test Item Value Reference Range Interpretation Comments PT (test code = PT) 13.2 s 12.0-14.7 [facility] HospitalQuriozcKHIUGXUNIC5372-13-79 16:03:00 Test Item Value Reference Range Interpretation Comments INR (test code = INR) 1.01 1 0.85-1.17 [facility] HospitalIvlfmtpRDGOQNDINB7857-85-68 16:03:00 Test Item Value Reference Range Interpretation Comments PTT (test code = PTT) 36.4 s 22.9-35.8 [facility] HospitalBjrpfrdAHZXTWPNYA0303-89-72 16:03:00 Test Item Value Reference Range Interpretation Comments Segs (test code = Segs) 55.4 45.0-75.0 [facility] HospitalJuqpnmnQOIWGVGYTJ2230-07-73 16:03:00 Test Item Value Reference Range Interpretation Comments Lymphocytes (test code = Lymphocytes) 33.2 20.0-40.0 [facility] HospitalMilaharMPXUNOETSX3589-37-94 16:03:00 Test Item Value Reference Range Interpretation Comments Monocytes (test code = Monocytes) 3.6 2.0-12.0 [place] 362701-07-20 16:03:00 Test Item Value Reference Range Interpretation Comments Eosinophils (test code = 6.3 See_Comment [A utomated message] The Eosinophils) system which ge nerated this result tra nsmitted reference range : <=4.0. The reference r katie was not used to int erpret this result as normal/abnormal . [place] 362701-07-20 16:03:00 Test Item Value Reference Range Interpretation Comments Basophils (test code = 1.5 See_Comment [Aut omated message] The Basophils) system which ge nerated this result tra nsmitted reference range : <=1.0. The reference r katie was not used to int erpret this result as normal/abnormal . [place] 362701-07-20 16:03:00 Test Item Value Reference Range Interpretation Comments Neutrophils # (test code = Neutrophils 3.7 1.5-8.1 #) [place] 362701-07-20 16:03:00 Test Item Value Reference Range Interpretation Comments Lymphocytes # (test code = Lymphocytes 2.2 1.0-5.5 #) [place] 362701-07-20 16:03:00 Test Item Value Reference Range Interpretation Comments Monocytes # (test code 0.2 See_Comment [Aut omated message] The = Monocytes #) system which generated this result tra nsmitted reference range : <=0.8. The reference r katie was not used to int erpret this result as normal/abnormal . [place] 362701-07-20 16:03:00 Test Item Value Reference Range Interpretation Comments Eosinophils # (test code 0.4 See_Comment [A utomated message] The = Eosinophils #) system whic h generated this result tra nsmitted reference range : <=0.5. The reference r katie was not used to int erpret this result as normal/abnormal . [place] 362701-07-20 16:03:00 Test Item Value Reference Range Interpretation Comments Basophils # (test code 0.1 See_Comment [Aut omated message] The = Basophils #) system which generated this result tra nsmitted reference range : <=0.2. The reference r katie was not used to int erpret this result as normal/abnormal . [facility] CenterSrpktaxEDGXMY7864-45-41 16:03:00 Test Item Value Reference Range Interpretation Comments Trig (test code = Trig) 64 [facility] CenterZuswvefEOLHCV7294-50-23 16:03:00 Test Item Value Reference Range Interpretation Comments Chol (test code = Chol) 135 [facility] CenterLwclgdpZJQEYT5273-12-35 16:03:00 Test Item Value Reference Range Interpretation Comments HDL (test code = HDL) 33 [facility] CenterCjadqxyTOVQUP7591-80-89 16:03:00 Test Item Value Reference Range Interpretation Comments CHD Risk (test code = CHD Risk) 4.09 1 3.90-5.80 [facility] CenterWjlzzhuPSZBYP2023-66-64 16:03:00 Test Item Value Reference Range Interpretation Comments LDL (Calculated) (test code = LDL 89 (Calculated)) [facility] CenterVmjgphgECYNQW7451-15-33 16:03:00 Test Item Value Reference Range Interpretation Comments VLDL (test code = VLDL) 13 1 [facility] CenterPARATHYROID MRPGRDV7516-83-60 16:03:00 Test Item Value Reference Range Interpretation Comments Ca Ion WB (test code = Ca Ion WB) 1.13 1.05-1.25 [facility] CenterPARATHYROID NFUITPJ5508-50-13 16:03:00 Test Item Value Reference Range Interpretation Comments Ca Norm WB (test code = Ca Norm WB) 1.10 1.05-1.25 [facility] CenterPrinc[facility] Power System,[employer] [id number] 16:03:00 Test Item Value Reference Range Interpretation Comments Glucose Lvl (test code = Glucose Lvl) 112 70-99 [facility] CenterPrinc[facility],[employer] LAPNY6730-25-31 16:03:00 Test Item Value Reference Range Interpretation Comments BUN (test code = BUN) 39 7-22 [facility]2021-07-20 16:03:00 Test Item Value Reference Range Interpretation Comments Creatinine Lvl (test code = Creatinine 1.00 0.50-1.40 Lvl) [facility]2021-07-20 16:03:00 Test Item Value Reference Range Interpretation Comments Sodium Lvl (test code = Sodium Lvl) 139 135-145 [facility] CenterPrinc[facility],[employer] [id number] 16:03:00 Test Item Value Reference Range Interpretation Comments Potassium Lvl (test code = Potassium 4.1 3.5-5.1 Lvl) [facility]2021-07-20 16:03:00 Test Item Value Reference Range Interpretation Comments Chloride Lvl (test code = Chloride Lvl) 109 95-109 [facility]2021-07-20 16:03:00 Test Item Value Reference Range Interpretation Comments CO2 (test code = CO2) 26 24-32 [place] 831881-07-20 16:03:00 Test Item Value Reference Range Interpretation Comments Calcium Lvl (test code = Calcium Lvl) 8.2 8.5-10.5 [place] 831881-07-20 16:03:00 Test Item Value Reference Range Interpretation Comments AGAP (test code = AGAP) 8.1 10.0-20.0 [facility]2021-07-20 16:03:00 Test Item Value Reference Range Interpretation Comments eGFR (test code = eGFR) 58 [facility]2021-07-20 16:03:00 Test Item Value Reference Range Interpretation Comments Magnesium Lvl (test code = Magnesium 2.1 1.8-2.4 Lvl) [facility]2021-07-20 16:03:00 Test Item Value Reference Range Interpretation Comments Phosphorus (test code = Phosphorus) 3.8 2.5-4.5 [facility] HospitalIggegjcVLAQJYRUDH2866-22-75 16:03:00 Test Item Value Reference Range Interpretation Comments WBC X 10x3 (test code = WBC X 10x3) 6.7 3.7-10.4 [place] 362701-07-20 16:03:00 Test Item Value Reference Range Interpretation Comments RBC X 10x6 (test code = RBC X 10x6) 3.06 4.20-5.40 [place] 362701-07-20 16:03:00 Test Item Value Reference Range Interpretation Comments Hgb (test code = Hgb) 9.6 12.0-16.0 [place] 362701-07-20 16:03:00 Test Item Value Reference Range Interpretation Comments Hct (test code = Hct) 29.1 36.0-48.0 [place] 362701-07-20 16:03:00 Test Item Value Reference Range Interpretation Comments MCV (test code = MCV) 95.2 80.0-98.0 [facility] HospitalAxolansMKODXBFZYH5564-36-64 16:03:00 Test Item Value Reference Range Interpretation Comments MCH (test code = MCH) 31.3 pg 27.0-31.0 [facility] HospitalNefeudoQFJLXYMFME6633-00-32 16:03:00 Test Item Value Reference Range Interpretation Comments MCHC (test code = MCHC) 32.9 32.0-36.0 [facility] HospitalXsakfeaBMDLQIPHXL7144-25-62 16:03:00 Test Item Value Reference Range Interpretation Comments RDW (test code = RDW) 12.4 11.5-14.5 [facility] HospitalTgnpldfBPYZHHGYZU9854-26-99 16:03:00 Test Item Value Reference Range Interpretation Comments Platelet (test code = Platelet) 182 133-450 [facility] HospitalJrkvtltSPGFFESBUH6951-12-13 16:03:00 Test Item Value Reference Range Interpretation Comments MPV (test code = MPV) 7.6 7.4-10.4 [facility] HospitalOgmsdfjMKKWMPUEBK0996-04-51 16:03:00 Test Item Value Reference Range Interpretation Comments PT (test code = PT) 13.2 s 12.0-14.7 [facility] HospitalHdmaudoJTRNMYUYIW8323-01-34 16:03:00 Test Item Value Reference Range Interpretation Comments INR (test code = INR) 1.01 1 0.85-1.17 [facility] HospitalZqxlpfpYRHXREGWLN6773-31-15 16:03:00 Test Item Value Reference Range Interpretation Comments PTT (test code = PTT) 36.4 s 22.9-35.8 [facility] HospitalFksiekzPWSOMMECBJ0780-99-86 16:03:00 Test Item Value Reference Range Interpretation Comments Segs (test code = Segs) 55.4 45.0-75.0 [facility] HospitalZpadkloMHPOBOTRFV9100-11-52 16:03:00 Test Item Value Reference Range Interpretation Comments Lymphocytes (test code = Lymphocytes) 33.2 20.0-40.0 [facility] HospitalQoqctzbDVTQNWFNPC4461-87-83 16:03:00 Test Item Value Reference Range Interpretation Comments Monocytes (test code = Monocytes) 3.6 2.0-12.0 [facility] HospitalCxibdsxQDOUXUJXRB6965-77-38 16:03:00 Test Item Value Reference Range Interpretation Comments Eosinophils (test code = 6.3 See_Comment [A utomated message] The Eosinophils) system which ge nerated this result tra nsmitted reference range : <=4.0. The reference r katie was not used to int erpret this result as normal/abnormal . [facility] HospitalSlrcjbqWQWBSGMNVG2720-79-31 16:03:00 Test Item Value Reference Range Interpretation Comments Basophils (test code = 1.5 See_Comment [Aut omated message] The Basophils) system which ge nerated this result tra nsmitted reference range : <=1.0. The reference r katie was not used to int erpret this result as normal/abnormal . [facility] HospitalKnaitayFUEZKRQNFF3205-13-65 16:03:00 Test Item Value Reference Range Interpretation Comments Neutrophils # (test code = Neutrophils 3.7 1.5-8.1 #) [facility] HospitalRrquxboMKHCDKXRUT7374-05-97 16:03:00 Test Item Value Reference Range Interpretation Comments Lymphocytes # (test code = Lymphocytes 2.2 1.0-5.5 #) [facility] HospitalZkxfoquEJJXJCUOFV1275-68-12 16:03:00 Test Item Value Reference Range Interpretation Comments Monocytes # (test code 0.2 See_Comment [Aut omated message] The = Monocytes #) system which generated this result tra nsmitted reference range : <=0.8. The reference r katie was not used to int erpret this result as normal/abnormal . [facility] HospitalOlbbdgwLCTDTLEHYX2578-74-68 16:03:00 Test Item Value Reference Range Interpretation Comments Eosinophils # (test code 0.4 See_Comment [A utomated message] The = Eosinophils #) system whic h generated this result tra nsmitted reference range : <=0.5. The reference r katie was not used to int erpret this result as normal/abnormal . [facility] HospitalFqcciovHWQHNEBDJX1958-57-25 16:03:00 Test Item Value Reference Range Interpretation Comments Basophils # (test code 0.1 See_Comment [Aut omated message] The = Basophils #) system which generated this result tra nsmitted reference range : <=0.2. The reference r katie was not used to int erpret this result as normal/abnormal . [place] 349751-07-20 16:03:00 Test Item Value Reference Range Interpretation Comments Trig (test code = Trig) 64 [place] 349751-07-20 16:03:00 Test Item Value Reference Range Interpretation Comments Chol (test code = Chol) 135 [facility] CenterMcglxkwHEYJZN4232-40-20 16:03:00 Test Item Value Reference Range Interpretation Comments HDL (test code = HDL) 33 [facility] CenterBfuixviCYUVGG7224-62-64 16:03:00 Test Item Value Reference Range Interpretation Comments CHD Risk (test code = CHD Risk) 4.09 1 3.90-5.80 [facility] CenterWzyqdkfNDZDIC0909-09-04 16:03:00 Test Item Value Reference Range Interpretation Comments LDL (Calculated) (test code = LDL 89 (Calculated)) [facility] CenterDmgomwrDVRYZC2511-16-99 16:03:00 Test Item Value Reference Range Interpretation Comments VLDL (test code = VLDL) 13 1 [facility] CenterPARATHYROID XTMCLZM2736-97-00 16:03:00 Test Item Value Reference Range Interpretation Comments Ca Ion WB (test code = Ca Ion WB) 1.13 1.05-1.25 [facility] HJYYCJR0644-83-38 16:03:00 Test Item Value Reference Range Interpretation Comments Ca Norm WB (test code = Ca Norm WB) 1.10 1.05-1.25 [facility]2021-07-20 16:03:00 Test Item Value Reference Range Interpretation Comments Glucose Lvl (test code = Glucose Lvl) 112 70-99 [facility]2021-07-20 16:03:00 Test Item Value Reference Range Interpretation Comments BUN (test code = BUN) 39 7-22 [facility]2021-07-20 16:03:00 Test Item Value Reference Range Interpretation Comments Creatinine Lvl (test code = Creatinine 1.00 0.50-1.40 Lvl) [facility]2021-07-20 16:03:00 Test Item Value Reference Range Interpretation Comments Sodium Lvl (test code = Sodium Lvl) 139 135-145 [facility]2021-07-20 16:03:00 Test Item Value Reference Range Interpretation Comments Potassium Lvl (test code = Potassium 4.1 3.5-5.1 Lvl) [facility]2021-07-20 16:03:00 Test Item Value Reference Range Interpretation Comments Chloride Lvl (test code = Chloride Lvl) 109 95-109 [facility]2021-07-20 16:03:00 Test Item Value Reference Range Interpretation Comments CO2 (test code = CO2) 26 24-32 [facility]2021-07-20 16:03:00 Test Item Value Reference Range Interpretation Comments Calcium Lvl (test code = Calcium Lvl) 8.2 8.5-10.5 [place] 831881-07-20 16:03:00 Test Item Value Reference Range Interpretation Comments AGAP (test code = AGAP) 8.1 10.0-20.0 [place] 831881-07-20 16:03:00 Test Item Value Reference Range Interpretation Comments eGFR (test code = eGFR) 58 [place] 831881-07-20 16:03:00 Test Item Value Reference Range Interpretation Comments Magnesium Lvl (test code = Magnesium 2.1 1.8-2.4 Lvl) [place] 831881-07-20 16:03:00 Test Item Value Reference Range Interpretation Comments Phosphorus (test code = Phosphorus) 3.8 2.5-4.5 [place] 362701-07-20 16:03:00 Test Item Value Reference Range Interpretation Comments WBC X 10x3 (test code = WBC X 10x3) 6.7 3.7-10.4 [place] 362701-07-20 16:03:00 Test Item Value Reference Range Interpretation Comments RBC X 10x6 (test code = RBC X 10x6) 3.06 4.20-5.40 [place] 362701-07-20 16:03:00 Test Item Value Reference Range Interpretation Comments Hgb (test code = Hgb) 9.6 12.0-16.0 [place] 362701-07-20 16:03:00 Test Item Value Reference Range Interpretation Comments Hct (test code = Hct) 29.1 36.0-48.0 [place] 362701-07-20 16:03:00 Test Item Value Reference Range Interpretation Comments MCV (test code = MCV) 95.2 80.0-98.0 [place] 362701-07-20 16:03:00 Test Item Value Reference Range Interpretation Comments MCH (test code = MCH) 31.3 pg 27.0-31.0 [place] 362701-07-20 16:03:00 Test Item Value Reference Range Interpretation Comments MCHC (test code = MCHC) 32.9 32.0-36.0 [place] 362701-07-20 16:03:00 Test Item Value Reference Range Interpretation Comments RDW (test code = RDW) 12.4 11.5-14.5 [place] 362701-07-20 16:03:00 Test Item Value Reference Range Interpretation Comments Platelet (test code = Platelet) 182 133-450 [id number] 16:03:00 Test Item Value Reference Range Interpretation Comments MPV (test code = MPV) 7.6 7.4-10.4 [place] 362701-07-20 16:03:00 Test Item Value Reference Range Interpretation Comments PT (test code = PT) 13.2 s 12.0-14.7 [place] 362701-07-20 16:03:00 Test Item Value Reference Range Interpretation Comments INR (test code = INR) 1.01 1 0.85-1.17 [facility] HospitalHyakitjRYGHXCDNWP5131-02-39 16:03:00 Test Item Value Reference Range Interpretation Comments PTT (test code = PTT) 36.4 s 22.9-35.8 [place] 362701-07-20 16:03:00 Test Item Value Reference Range Interpretation Comments Segs (test code = Segs) 55.4 45.0-75.0 [facility] HospitalObonvrmTVLWEKQHZW4805-52-34 16:03:00 Test Item Value Reference Range Interpretation Comments Lymphocytes (test code = Lymphocytes) 33.2 20.0-40.0 [facility] HospitalOnjpenhHBOZQIDKWI3044-19-76 16:03:00 Test Item Value Reference Range Interpretation Comments Monocytes (test code = Monocytes) 3.6 2.0-12.0 [place] 362701-07-20 16:03:00 Test Item Value Reference Range Interpretation Comments Eosinophils (test code = 6.3 See_Comment [A utomated message] The Eosinophils) system which ge nerated this result tra nsmitted reference range : <=4.0. The reference r katie was not used to int erpret this result as normal/abnormal . [place] 362701-07-20 16:03:00 Test Item Value Reference Range Interpretation Comments Basophils (test code = 1.5 See_Comment [Aut omated message] The Basophils) system which ge nerated this result tra nsmitted reference range : <=1.0. The reference r katie was not used to int erpret this result as normal/abnormal . [facility] HospitalIxhrtyfHRCMLVLROT9548-10-78 16:03:00 Test Item Value Reference Range Interpretation Comments Neutrophils # (test code = Neutrophils 3.7 1.5-8.1 #) [facility] HospitalBengukoVUWNXJGILP1029-19-50 16:03:00 Test Item Value Reference Range Interpretation Comments Lymphocytes # (test code = Lymphocytes 2.2 1.0-5.5 #) [facility] HospitalAudybusFRCVYVRJFI4551-65-83 16:03:00 Test Item Value Reference Range Interpretation Comments Monocytes # (test code 0.2 See_Comment [Aut omated message] The = Monocytes #) system which generated this result tra nsmitted reference range : <=0.8. The reference r katie was not used to int erpret this result as normal/abnormal . [facility] HospitalYfespunTPNTGTXTRB7396-19-85 16:03:00 Test Item Value Reference Range Interpretation Comments Eosinophils # (test code 0.4 See_Comment [A utomated message] The = Eosinophils #) system whic h generated this result tra nsmitted reference range : <=0.5. The reference r katie was not used to int erpret this result as normal/abnormal . [facility] HospitalUvnbykhLIFICMQOOJ6489-69-81 16:03:00 Test Item Value Reference Range Interpretation Comments Basophils # (test code 0.1 See_Comment [Aut omated message] The = Basophils #) system which generated this result tra nsmitted reference range : <=0.2. The reference r katie was not used to int erpret this result as normal/abnormal . [facility]GfjmuxgSDHGQK9627-68-67 16:03:00 Test Item Value Reference Range Interpretation Comments Trig (test code = Trig) 64 [facility] CenterTavxoepTHUVJS4212-85-22 16:03:00 Test Item Value Reference Range Interpretation Comments Chol (test code = Chol) 135 [facility] CenterHpadubiNWGWND4716-78-06 16:03:00 Test Item Value Reference Range Interpretation Comments HDL (test code = HDL) 33 [facility] CenterAxqcobcXNKQIZ8411-60-62 16:03:00 Test Item Value Reference Range Interpretation Comments CHD Risk (test code = CHD Risk) 4.09 1 3.90-5.80 [place] 349751-07-20 16:03:00 Test Item Value Reference Range Interpretation Comments LDL (Calculated) (test code = LDL 89 (Calculated)) [facility] CenterZyofzulQJEAOI7932-57-49 16:03:00 Test Item Value Reference Range Interpretation Comments VLDL (test code = VLDL) 13 1 [facility] [id number] 16:03:00 Test Item Value Reference Range Interpretation Comments Ca Ion WB (test code = Ca Ion WB) 1.13 1.05-1.25 [facility]RO[facility] [id number] 16:03:00 Test Item Value Reference Range Interpretation Comments Ca Norm WB (test code = Ca Norm WB) 1.10 1.05-1.25 [facility]2021-07-20 16:03:00 Test Item Value Reference Range Interpretation Comments Glucose Lvl (test code = Glucose Lvl) 112 70-99 [facility]2021-07-20 16:03:00 Test Item Value Reference Range Interpretation Comments BUN (test code = BUN) 39 7-22 [facility]2021-07-20 16:03:00 Test Item Value Reference Range Interpretation Comments Creatinine Lvl (test code = Creatinine 1.00 0.50-1.40 Lvl) [facility]2021-07-20 16:03:00 Test Item Value Reference Range Interpretation Comments Sodium Lvl (test code = Sodium Lvl) 139 135-145 [facility]2021-07-20 16:03:00 Test Item Value Reference Range Interpretation Comments Potassium Lvl (test code = Potassium 4.1 3.5-5.1 Lvl) [facility]2021-07-20 16:03:00 Test Item Value Reference Range Interpretation Comments Chloride Lvl (test code = Chloride Lvl) 109 95-109 [facility]2021-07-20 16:03:00 Test Item Value Reference Range Interpretation Comments CO2 (test code = CO2) 26 24-32 [facility]2021-07-20 16:03:00 Test Item Value Reference Range Interpretation Comments Calcium Lvl (test code = Calcium Lvl) 8.2 8.5-10.5 [facility]2021-07-20 16:03:00 Test Item Value Reference Range Interpretation Comments AGAP (test code = AGAP) 8.1 10.0-20.0 [facility]2021-07-20 16:03:00 Test Item Value Reference Range Interpretation Comments eGFR (test code = eGFR) 58 [facility]2021-07-20 16:03:00 Test Item Value Reference Range Interpretation Comments Magnesium Lvl (test code = Magnesium 2.1 1.8-2.4 Lvl) [facility]2021-07-20 16:03:00 Test Item Value Reference Range Interpretation Comments Phosphorus (test code = Phosphorus) 3.8 2.5-4.5 [facility] HospitalVihvemqMJMCGVGIXD1057-83-91 16:03:00 Test Item Value Reference Range Interpretation Comments WBC X 10x3 (test code = WBC X 10x3) 6.7 3.7-10.4 [facility] HospitalYhpmigjRLXEOZZARN3049-11-40 16:03:00 Test Item Value Reference Range Interpretation Comments RBC X 10x6 (test code = RBC X 10x6) 3.06 4.20-5.40 [facility] HospitalPsdrldxXXWJSJPAII1936-49-27 16:03:00 Test Item Value Reference Range Interpretation Comments Hgb (test code = Hgb) 9.6 12.0-16.0 [facility] HospitalIxksqdsYYLNLGGLJR5283-05-72 16:03:00 Test Item Value Reference Range Interpretation Comments Hct (test code = Hct) 29.1 36.0-48.0 [facility] HospitalTfpmtcfGFSFZSWHVI8745-57-08 16:03:00 Test Item Value Reference Range Interpretation Comments MCV (test code = MCV) 95.2 80.0-98.0 [facility] HospitalQeduaazGEGJCOOOPZ1954-85-54 16:03:00 Test Item Value Reference Range Interpretation Comments MCH (test code = MCH) 31.3 pg 27.0-31.0 [facility] HospitalXierfxqNLCVUEYXYD9665-75-54 16:03:00 Test Item Value Reference Range Interpretation Comments MCHC (test code = MCHC) 32.9 32.0-36.0 [facility] HospitalHsqqaifGLUVXSOQLZ2607-17-10 16:03:00 Test Item Value Reference Range Interpretation Comments RDW (test code = RDW) 12.4 11.5-14.5 [place] 362701-07-20 16:03:00 Test Item Value Reference Range Interpretation Comments Platelet (test code = Platelet) 182 133-450 [facility] HospitalUgjtibrVBPIUITBXK4215-12-31 16:03:00 Test Item Value Reference Range Interpretation Comments MPV (test code = MPV) 7.6 7.4-10.4 [facility] HospitalTyjirprTUPXGXVTGA6196-19-07 16:03:00 Test Item Value Reference Range Interpretation Comments PT (test code = PT) 13.2 s 12.0-14.7 [facility] HospitalYkngceqYSPUDFMXOX3428-52-24 16:03:00 Test Item Value Reference Range Interpretation Comments INR (test code = INR) 1.01 1 0.85-1.17 [facility] HospitalJrmimckCDOTHKBWKV5884-13-03 16:03:00 Test Item Value Reference Range Interpretation Comments PTT (test code = PTT) 36.4 s 22.9-35.8 [facility] HospitalMtljtspHKXLKFTPIP4609-86-55 16:03:00 Test Item Value Reference Range Interpretation Comments Segs (test code = Segs) 55.4 45.0-75.0 [facility] HospitalXpohyuwZHOZTAGAWF3604-82-23 16:03:00 Test Item Value Reference Range Interpretation Comments Lymphocytes (test code = Lymphocytes) 33.2 20.0-40.0 [facility] HospitalOkmojroPXPLXIWBIP9117-11-56 16:03:00 Test Item Value Reference Range Interpretation Comments Monocytes (test code = Monocytes) 3.6 2.0-12.0 [facility] HospitalPfmymdkMEMDQPHZDL5672-43-63 16:03:00 Test Item Value Reference Range Interpretation Comments Eosinophils (test code = 6.3 See_Comment [A utomated message] The Eosinophils) system which ge nerated this result tra nsmitted reference range : <=4.0. The reference r katie was not used to int erpret this result as normal/abnormal . [facility] HospitalCcinkqbFUWDMMZJRP3945-88-23 16:03:00 Test Item Value Reference Range Interpretation Comments Basophils (test code = 1.5 See_Comment [Aut omated message] The Basophils) system which ge nerated this result tra nsmitted reference range : <=1.0. The reference r katie was not used to int erpret this result as normal/abnormal . [facility] HospitalJzawvbhUGDLCMXWYH9863-08-26 16:03:00 Test Item Value Reference Range Interpretation Comments Neutrophils # (test code = Neutrophils 3.7 1.5-8.1 #) [facility] HospitalChkqxhvGRBRYNNYHH1892-12-21 16:03:00 Test Item Value Reference Range Interpretation Comments Lymphocytes # (test code = Lymphocytes 2.2 1.0-5.5 #) [facility] HospitalZopylcbHHJDFQLRNX3996-34-26 16:03:00 Test Item Value Reference Range Interpretation Comments Monocytes # (test code 0.2 See_Comment [Aut omated message] The = Monocytes #) system which generated this result tra nsmitted reference range : <=0.8. The reference r katie was not used to int erpret this result as normal/abnormal . [facility] HospitalYhhesvyQDBOKNLCNF0287-24-79 16:03:00 Test Item Value Reference Range Interpretation Comments Eosinophils # (test code 0.4 See_Comment [A utomated message] The = Eosinophils #) system whic h generated this result tra nsmitted reference range : <=0.5. The reference r katie was not used to int erpret this result as normal/abnormal . [facility] HospitalMceimkeGVQEICUPRS1790-43-28 16:03:00 Test Item Value Reference Range Interpretation Comments Basophils # (test code 0.1 See_Comment [Aut omated message] The = Basophils #) system which generated this result tra nsmitted reference range : <=0.2. The reference r katie was not used to int erpret this result as normal/abnormal . [facility] CenterNygblxgVYVQXS5877-79-50 16:03:00 Test Item Value Reference Range Interpretation Comments Trig (test code = Trig) 64 [facility] CenterUbijjquBVPCRY9043-05-78 16:03:00 Test Item Value Reference Range Interpretation Comments Chol (test code = Chol) 135 [facility] CenterBdufegzOMKBCL8843-02-64 16:03:00 Test Item Value Reference Range Interpretation Comments HDL (test code = HDL) 33 [facility] CenterWgzsefyVVUEPO7361-73-44 16:03:00 Test Item Value Reference Range Interpretation Comments CHD Risk (test code = CHD Risk) 4.09 1 3.90-5.80 [facility] CenterBkisfvbANUQMF2500-72-32 16:03:00 Test Item Value Reference Range Interpretation Comments LDL (Calculated) (test code = LDL 89 (Calculated)) [facility] CenterZrmtymnBWHNGQ5928-93-33 16:03:00 Test Item Value Reference Range Interpretation Comments VLDL (test code = VLDL) 13 1 [facility] CenterPARATHYROID [id number] 16:03:00 Test Item Value Reference Range Interpretation Comments Ca Ion WB (test code = Ca Ion WB) 1.13 1.05-1.25 [facility] HermannPARATHYROID [id number] 16:03:00 Test Item Value Reference Range Interpretation Comments Ca Norm WB (test code = Ca Norm WB) 1.10 1.05-1.25 [facility] CenterBACTERIAL - [id number] 18:31:00 Test Item Value Reference Range Interpretation Comments MRSA by PCR (test Negative (01/08/21 1:31 code = MRSA by PCR) PM) [facility] [id number] 18:31:00 Test Item Value Reference Range Interpretation Comments ABO/Rh (test code = ABO/Rh) A POS [facility] HospitalMementoSA[facility] [id number] 18:31:00 Test Item Value Reference Range Interpretation Comments Antibody Scrn (test Negative (01/08/21 1:31 code = Antibody Scrn) PM) [facility] [id number] 18:31:00 Test Item Value Reference Range Interpretation Comments MRSA by PCR (test Negative (01/08/21 1:31 code = MRSA by PCR) PM) [facility] [id number] 18:31:00 Test Item Value Reference Range Interpretation Comments ABO/Rh (test code = ABO/Rh) A POS [facility]oSA[facility] [id number] 18:31:00 Test Item Value Reference Range Interpretation Comments Antibody Scrn (test Negative (01/08/21 1:31 code = Antibody Scrn) PM) [facility] - [id number] 18:31:00 Test Item Value Reference Range Interpretation Comments MRSA by PCR (test Negative (01/08/21 1:31 code = MRSA by PCR) PM) [facility] [id number] 18:31:00 Test Item Value Reference Range Interpretation Comments ABO/Rh (test code = ABO/Rh) A POS [facility] HospitalMetaLINCS [facility] [id number] 18:31:00 Test Item Value Reference Range Interpretation Comments Antibody Scrn (test Negative (01/08/21 1:31 code = Antibody Scrn) PM) [facility] - [id number] 18:31:00 Test Item Value Reference Range Interpretation Comments MRSA by PCR (test Negative (01/08/21 1:31 code = MRSA by PCR) PM) [facility] [id number] 18:31:00 Test Item Value Reference Range Interpretation Comments ABO/Rh (test code = ABO/Rh) A POS [facility] [id number] 18:31:00 Test Item Value Reference Range Interpretation Comments Antibody Scrn (test Negative (01/08/21 1:31 code = Antibody Scrn) PM) [facility] [id number] 18:31:00 Test Item Value Reference Range Interpretation Comments MRSA by PCR (test Negative (01/08/21 1:31 code = MRSA by PCR) PM) [facility] [id number] 18:31:00 Test Item Value Reference Range Interpretation Comments ABO/Rh (test code = ABO/Rh) A POS [facility] [id number] 18:31:00 Test Item Value Reference Range Interpretation Comments Antibody Scrn (test Negative (01/08/21 1:31 code = Antibody Scrn) PM) [facility] [id number] 18:31:00 Test Item Value Reference Range Interpretation Comments MRSA by PCR (test Negative (01/08/21 1:31 code = MRSA by PCR) PM) [facility] [id number] 18:31:00 Test Item Value Reference Range Interpretation Comments ABO/Rh (test code = ABO/Rh) A POS [facility] [id number] 18:31:00 Test Item Value Reference Range Interpretation Comments Antibody Scrn (test Negative (01/08/21 1:31 code = Antibody Scrn) PM) [facility] [id number] 18:19:00 Test Item Value Reference Range Interpretation Comments RBC product (test code Product available = RBC product) (01/08/21 1:19 PM) [facility] [employer] [id number] 18:19:00 Test Item Value Reference Range Interpretation Comments Glucose Lvl (test code = Glucose Lvl) 106 70-99 [facility] [id number] 18:19:00 Test Item Value Reference Range Interpretation Comments BUN (test code = BUN) 37 7-22 [facility]2021-07-15 18:19:00 Test Item Value Reference Range Interpretation Comments Creatinine Lvl (test code = Creatinine 1.00 0.50-1.40 Lvl) [facility]2021-07-15 18:19:00 Test Item Value Reference Range Interpretation Comments Sodium Lvl (test code = Sodium Lvl) 140 135-145 [facility]2021-07-15 18:19:00 Test Item Value Reference Range Interpretation Comments Potassium Lvl (test code = Potassium 4.4 3.5-5.1 Lvl) [facility]2021-07-15 18:19:00 Test Item Value Reference Range Interpretation Comments Chloride Lvl (test code = Chloride Lvl) 104 95-109 [facility]2021-07-15 18:19:00 Test Item Value Reference Range Interpretation Comments CO2 (test code = CO2) 32 24-32 [facility]2021-07-15 18:19:00 Test Item Value Reference Range Interpretation Comments Calcium Lvl (test code = Calcium Lvl) 10.8 8.5-10.5 [facility]2021-07-15 18:19:00 Test Item Value Reference Range Interpretation Comments AGAP (test code = AGAP) 8.4 10.0-20.0 [facility]2021-07-15 18:19:00 Test Item Value Reference Range Interpretation Comments eGFR (test code = eGFR) 58 [facility] CenterERTAPENEM:SUSC:PT:ISOLATE:ORDQN:[id number] 18:19:00 Test Item Value Reference Range Interpretation Comments Culture: Urine (test >100,000 CFU/mL code = Culture: Escherichia coli <10,000 Urine) CFU/mL Skin Kimberly [facility]APENEM:SUSC:PT:ISOLATE:ORDQN:[id number] 18:19:00 Test Item Value Reference Range Interpretation Comments Escherichia coli (test code Escherichia coli = Escherichia coli) [place] 362701-07-15 18:19:00 Test Item Value Reference Range Interpretation Comments WBC X 10x3 (test code = WBC X 10x3) 8.2 3.7-10.4 [place] 362701-07-15 18:19:00 Test Item Value Reference Range Interpretation Comments RBC X 10x6 (test code = RBC X 10x6) 3.81 4.20-5.40 [facility] HospitalAmvoxpbYGFOYMNEBV6624-51-02 18:19:00 Test Item Value Reference Range Interpretation Comments Hgb (test code = Hgb) 12.0 12.0-16.0 [facility] HospitalPibnbysJVKZUTKMMH9667-97-75 18:19:00 Test Item Value Reference Range Interpretation Comments Hct (test code = Hct) 36.2 36.0-48.0 [facility] HospitalYcrirtfXBESQANDKR2425-55-01 18:19:00 Test Item Value Reference Range Interpretation Comments MCV (test code = MCV) 95.2 80.0-98.0 [facility] HospitalZohzbftEXQSQMEIFN0998-75-64 18:19:00 Test Item Value Reference Range Interpretation Comments MCH (test code = MCH) 31.5 pg 27.0-31.0 [facility] HospitalVkbenweBZJGXKSGDP3132-72-06 18:19:00 Test Item Value Reference Range Interpretation Comments MCHC (test code = MCHC) 33.1 32.0-36.0 [facility] HospitalQjloqpkVIWYQRBAFU2430-38-43 18:19:00 Test Item Value Reference Range Interpretation Comments RDW (test code = RDW) 13.0 11.5-14.5 [facility] HospitalMziyqzcHPIPQRYPVX6091-00-19 18:19:00 Test Item Value Reference Range Interpretation Comments Platelet (test code = Platelet) 239 133-450 [facility] HospitalEwxfeoxQUPDMRKRSP7928-16-83 18:19:00 Test Item Value Reference Range Interpretation Comments MPV (test code = MPV) 7.8 7.4-10.4 [facility] HospitalXvciqfrBSZNDGXAYP1774-22-96 18:19:00 Test Item Value Reference Range Interpretation Comments PT (test code = PT) 13.9 s 12.0-14.7 [facility] HospitalMfncwkyYKZKPERZPG6488-33-28 18:19:00 Test Item Value Reference Range Interpretation Comments INR (test code = INR) 1.08 1 0.85-1.17 [place] 362701-07-15 18:19:00 Test Item Value Reference Range Interpretation Comments PTT (test code = PTT) 29.2 s 22.9-35.8 [facility] HospitalFtakqtrSPYJDZRIVU1119-34-53 18:19:00 Test Item Value Reference Range Interpretation Comments Segs (test code = Segs) 63.1 45.0-75.0 [place] 362701-07-15 18:19:00 Test Item Value Reference Range Interpretation Comments Lymphocytes (test code = Lymphocytes) 23.0 20.0-40.0 [place] 362701-07-15 18:19:00 Test Item Value Reference Range Interpretation Comments Monocytes (test code = Monocytes) 7.5 2.0-12.0 [place] 362701-07-15 18:19:00 Test Item Value Reference Range Interpretation Comments Eosinophils (test code = 5.0 See_Comment [A utomated message] The Eosinophils) system which ge nerated this result tra nsmitted reference range : <=4.0. The reference r katie was not used to int erpret this result as normal/abnormal . [place] [address]-07-15 18:19:00 Test Item Value Reference Range Interpretation Comments Basophils (test code = 1.4 See_Comment [Aut omated message] The Basophils) system which ge nerated this result tra nsmitted reference range : <=1.0. The reference r katie was not used to int erpret this result as normal/abnormal . [facility] HospitalUniynphMUZFABRSES9693-45-62 18:19:00 Test Item Value Reference Range Interpretation Comments Neutrophils # (test code = Neutrophils 5.2 1.5-8.1 #) [place] 362701-07-15 18:19:00 Test Item Value Reference Range Interpretation Comments Lymphocytes # (test code = Lymphocytes 1.9 1.0-5.5 #) [place] 362701-07-15 18:19:00 Test Item Value Reference Range Interpretation Comments Monocytes # (test code 0.6 See_Comment [Aut omated message] The = Monocytes #) system which generated this result tra nsmitted reference range : <=0.8. The reference r katie was not used to int erpret this result as normal/abnormal . [place] 362701-07-15 18:19:00 Test Item Value Reference Range Interpretation Comments Eosinophils # (test code 0.4 See_Comment [A utomated message] The = Eosinophils #) system whic h generated this result tra nsmitted reference range : <=0.5. The reference r katie was not used to int erpret this result as normal/abnormal . [facility] CenterAnqabchBFBCDTBPMX0307-38-08 18:19:00 Test Item Value Reference Range Interpretation Comments Basophils # (test code 0.1 See_Comment [Aut omated message] The = Basophils #) system which generated this result tra nsmitted reference range : <=0.2. The reference r katie was not used to int erpret this result as normal/abnormal . [facility] AND [id number] 18:19:00 Test Item Value Reference Range Interpretation Comments UA Turbidity (test code Slight *ABN*(01/08/21 = UA Turbidity) 1:19 PM) [facility] AND [id number] 18:19:00 Test Item Value Reference Range Interpretation Comments UA Spec Grav (test code = UA Spec 1.019 1 Grav) [facility] AND [id number] 18:19:00 Test Item Value Reference Range Interpretation Comments UA pH (test code = UA pH) 5.0 1 5.0-8.0 [facility] AND [id number] 18:19:00 Test Item Value Reference Range Interpretation Comments UA Protein (test code = UA Negative mg/dL Protein) [facility] AND [id number] 18:19:00 Test Item Value Reference Range Interpretation Comments UA Glucose (test code = UA Negative mg/dL Glucose) [facility] AND [id number] 18:19:00 Test Item Value Reference Range Interpretation Comments UA Ketones (test code = UA Negative mg/dL Ketones) [facility] AND [id number] 18:19:00 Test Item Value Reference Range Interpretation Comments UA Bili (test code = Negative *NA*(01/08/21 UA Bili) 1:19 PM) [facility] AND [id number] 18:19:00 Test Item Value Reference Range Interpretation Comments UA Blood (test code = Negative (01/08/21 1:19 UA Blood) PM) [facility] AND [id number] 18:19:00 Test Item Value Reference Range Interpretation Comments UA Nitrite (test code Positive *ABN*(01/08/21 = UA Nitrite) 1:19 PM) [facility] AND [id number] 18:19:00 Test Item Value Reference Range Interpretation Comments UA Leuk Est (test code Large *ABN*(01/08/21 = UA Leuk Est) 1:19 PM) [facility] [id number] 18:19:00 Test Item Value Reference Range Interpretation Comments UA Sq Epi (test code = UA Sq Occasional /LPF Epi) [facility] AND [id number] 18:19:00 Test Item Value Reference Range Interpretation Comments UA WBC (test code = 47 See_Comment [Automa matteo message] The UA WBC) system which ge nerated this result transmit matteo reference range : <=5. The reference range was not used to interpr et this result as miesha l/abnormal. [facility] [id number] 18:19:00 Test Item Value Reference Range Interpretation Comments UA RBC (test code = 2 See_Comment [Automa matteo message] The UA RBC) system which ge nerated this result transmit matteo reference range : <=2. The reference range was not used to interpr et this result as miesha l/abnormal. [facility] AND [id number] 18:19:00 Test Item Value Reference Range Interpretation Comments UA Bacteria (test code = UA Moderate /HPF Bacteria) [facility] AND [id number] 18:19:00 Test Item Value Reference Range Interpretation Comments UA Mucus (test code = UA Mucus) Few /LPF [facility] AND [id number] 18:19:00 Test Item Value Reference Range Interpretation Comments UA Color (test code = UA Color) Yellow [facility] AND [id number] 18:19:00 Test Item Value Reference Range Interpretation Comments UA Urobilinogen (test code = UA no gt 0.1-1.0 Urobilinogen) [facility] [id number] 18:19:00 Test Item Value Reference Range Interpretation Comments RBC product (test code Product available = RBC product) (01/08/21 1:19 PM) [facility] [place] [id number] 18:19:00 Test Item Value Reference Range Interpretation Comments Glucose Lvl (test code = Glucose Lvl) 106 70-99 [facility] [id number] 18:19:00 Test Item Value Reference Range Interpretation Comments BUN (test code = BUN) 37 -22 [facility]2021-07-15 18:19:00 Test Item Value Reference Range Interpretation Comments Creatinine Lvl (test code = Creatinine 1.00 0.50-1.40 Lvl) [facility]2021-07-15 18:19:00 Test Item Value Reference Range Interpretation Comments Sodium Lvl (test code = Sodium Lvl) 140 135-145 [facility]2021-07-15 18:19:00 Test Item Value Reference Range Interpretation Comments Potassium Lvl (test code = Potassium 4.4 3.5-5.1 Lvl) [facility]2021-07-15 18:19:00 Test Item Value Reference Range Interpretation Comments Chloride Lvl (test code = Chloride Lvl) 104 95-109 [facility]2021-07-15 18:19:00 Test Item Value Reference Range Interpretation Comments CO2 (test code = CO2) 32 24-32 [facility]2021-07-15 18:19:00 Test Item Value Reference Range Interpretation Comments Calcium Lvl (test code = Calcium Lvl) 10.8 8.5-10.5 [facility]2021-07-15 18:19:00 Test Item Value Reference Range Interpretation Comments AGAP (test code = AGAP) 8.4 10.0-20.0 [facility]2021-07-15 18:19:00 Test Item Value Reference Range Interpretation Comments eGFR (test code = eGFR) 58 [facility]PT:ISOLATE:ORDQN:[id number] 18:19:00 Test Item Value Reference Range Interpretation Comments Culture: Urine (test >100,000 CFU/mL code = Culture: Escherichia coli <10,000 Urine) CFU/mL Skin Kimberly [facility]C:PT:ISOLATE:ORDQN:[id number] 18:19:00 Test Item Value Reference Range Interpretation Comments Escherichia coli (test code Escherichia coli = Escherichia coli) [id number] 18:19:00 Test Item Value Reference Range Interpretation Comments WBC X 10x3 (test code = WBC X 10x3) 8.2 3.7-10.4 [facility] Hospit[id number] 18:19:00 Test Item Value Reference Range Interpretation Comments RBC X 10x6 (test code = RBC X 10x6) 3.81 4.20-5.40 [facility] HospitalDtgyftuPJYRPPUYEO8727-21-14 18:19:00 Test Item Value Reference Range Interpretation Comments Hgb (test code = Hgb) 12.0 12.0-16.0 [place] 362701-07-15 18:19:00 Test Item Value Reference Range Interpretation Comments Hct (test code = Hct) 36.2 36.0-48.0 [facility] HospitalBsgofdxIEOBHJCYIL2951-05-25 18:19:00 Test Item Value Reference Range Interpretation Comments MCV (test code = MCV) 95.2 80.0-98.0 [facility] HospitalTlhyoeyBMUYZIGPJX1803-25-45 18:19:00 Test Item Value Reference Range Interpretation Comments MCH (test code = MCH) 31.5 pg 27.0-31.0 [facility] HospitalLvbaohrRSWBFCQBLW6890-76-85 18:19:00 Test Item Value Reference Range Interpretation Comments MCHC (test code = MCHC) 33.1 32.0-36.0 [facility] Hospit[id number] 18:19:00 Test Item Value Reference Range Interpretation Comments RDW (test code = RDW) 13.0 11.5-14.5 [facility] Hospit[id number] 18:19:00 Test Item Value Reference Range Interpretation Comments Platelet (test code = Platelet) 239 133-450 [facility] HospitalXqhypydYELCGOQJJB3649-62-99 18:19:00 Test Item Value Reference Range Interpretation Comments MPV (test code = MPV) 7.8 7.4-10.4 [facility] HospitalYsscytcMVXWMASOQM6176-00-28 18:19:00 Test Item Value Reference Range Interpretation Comments PT (test code = PT) 13.9 s 12.0-14.7 [facility] HospitalOoaptqtBAAEVZCLCR1444-79-90 18:19:00 Test Item Value Reference Range Interpretation Comments INR (test code = INR) 1.08 1 0.85-1.17 [facility] Hospit[id number] 18:19:00 Test Item Value Reference Range Interpretation Comments PTT (test code = PTT) 29.2 s 22.9-35.8 [facility] HospitalItwrpvkHGXTKOLBKW9535-29-09 18:19:00 Test Item Value Reference Range Interpretation Comments Segs (test code = Segs) 63.1 45.0-75.0 [facility] HospitalMfxrqwtDQSIXIWYWZ1309-34-53 18:19:00 Test Item Value Reference Range Interpretation Comments Lymphocytes (test code = Lymphocytes) 23.0 20.0-40.0 [facility] Hospit[id number] 18:19:00 Test Item Value Reference Range Interpretation Comments Monocytes (test code = Monocytes) 7.5 2.0-12.0 [facility] HospitalNqqqmsgOKFCTKZSYR1729-53-89 18:19:00 Test Item Value Reference Range Interpretation Comments Eosinophils (test code = 5.0 See_Comment [A utomated message] The Eosinophils) system which ge nerated this result tra nsmitted reference range : <=4.0. The reference r katie was not used to int erpret this result as normal/abnormal . [facility] HospitalVebxqiyQKGJGJJTKZ5943-82-25 18:19:00 Test Item Value Reference Range Interpretation Comments Basophils (test code = 1.4 See_Comment [Aut omated message] The Basophils) system which ge nerated this result tra nsmitted reference range : <=1.0. The reference r katie was not used to int erpret this result as normal/abnormal . [facility] HospitalQhzfqwcXENOYDTRRW4129-50-70 18:19:00 Test Item Value Reference Range Interpretation Comments Neutrophils # (test code = Neutrophils 5.2 1.5-8.1 #) [facility] HospitalArtybnvVROETMHAWJ3599-24-17 18:19:00 Test Item Value Reference Range Interpretation Comments Lymphocytes # (test code = Lymphocytes 1.9 1.0-5.5 #) [place] 362701-07-15 18:19:00 Test Item Value Reference Range Interpretation Comments Monocytes # (test code 0.6 See_Comment [Aut omated message] The = Monocytes #) system which generated this result tra nsmitted reference range : <=0.8. The reference r katie was not used to int erpret this result as normal/abnormal . [facility] HospitalWsidbcwPNOVYKBZNK7101-87-72 18:19:00 Test Item Value Reference Range Interpretation Comments Eosinophils # (test code 0.4 See_Comment [A utomated message] The = Eosinophils #) system [facility] h generated this result tra nsmitted reference range : <=0.5. The reference r katie was not used to int erpret this result as normal/abnormal . [facility] CenterGlhbxvmNIAUFLGETA5508-46-26 18:19:00 Test Item Value Reference Range Interpretation Comments Basophils # (test code 0.1 See_Comment [Aut omated message] The = Basophils #) system which generated this result tra nsmitted reference range : <=0.2. The reference r katie was not used to int erpret this result as normal/abnormal . [facility] AND [id number] 18:19:00 Test Item Value Reference Range Interpretation Comments UA Turbidity (test code Slight *ABN*(01/08/21 = UA Turbidity) 1:19 PM) [facility] AND [id number] 18:19:00 Test Item Value Reference Range Interpretation Comments UA Spec Grav (test code = UA Spec 1.019 1 Grav) [facility] AND [id number] 18:19:00 Test Item Value Reference Range Interpretation Comments UA pH (test code = UA pH) 5.0 1 5.0-8.0 [facility] AND [id number] 18:19:00 Test Item Value Reference Range Interpretation Comments UA Protein (test code = UA Negative mg/dL Protein) [facility] AND [id number] 18:19:00 Test Item Value Reference Range Interpretation Comments UA Glucose (test code = UA Negative mg/dL Glucose) [facility] AND [id number] 18:19:00 Test Item Value Reference Range Interpretation Comments UA Ketones (test code = UA Negative mg/dL Ketones) [facility] AND [id number] 18:19:00 Test Item Value Reference Range Interpretation Comments UA Bili (test code = Negative *NA*(01/08/21 UA Bili) 1:19 PM) [facility] AND [id number] 18:19:00 Test Item Value Reference Range Interpretation Comments UA Blood (test code = Negative (01/08/21 1:19 UA Blood) PM) [facility] AND [id number] 18:19:00 Test Item Value Reference Range Interpretation Comments UA Nitrite (test code Positive *ABN*(01/08/21 = UA Nitrite) 1:19 PM) [facility] AND [id number] 18:19:00 Test Item Value Reference Range Interpretation Comments UA Leuk Est (test code Large *ABN*(01/08/21 = UA Leuk Est) 1:19 PM) [facility] AND [id number] 18:19:00 Test Item Value Reference Range Interpretation Comments UA Sq Epi (test code = UA Sq Occasional /LPF Epi) [facility] [id number] 18:19:00 Test Item Value Reference Range Interpretation Comments UA WBC (test code = 47 See_Comment [Automa matteo message] The UA WBC) system which ge nerated this result transmit matteo reference range : <=5. The reference range was not used to interpr et this result as miesha l/abnormal. [facility] [id number] 18:19:00 Test Item Value Reference Range Interpretation Comments UA RBC (test code = 2 See_Comment [Automa matteo message] The UA RBC) system which ge nerated this result transmit matteo reference range : <=2. The reference range was not used to interpr et this result as miesha l/abnormal. [facility] AND [id number] 18:19:00 Test Item Value Reference Range Interpretation Comments UA Bacteria (test code = UA Moderate /HPF Bacteria) [facility] AND [id number] 18:19:00 Test Item Value Reference Range Interpretation Comments UA Mucus (test code = UA Mucus) Few /LPF [facility] AND [id number] 18:19:00 Test Item Value Reference Range Interpretation Comments UA Color (test code = UA Color) Yellow [facility] AND [id number] 18:19:00 Test Item Value Reference Range Interpretation Comments UA Urobilinogen (test code = UA no gt 0.1-1.0 Urobilinogen) [facility] [id number] 18:19:00 Test Item Value Reference Range Interpretation Comments RBC product (test code Product available = RBC product) (01/08/21 1:19 PM) [facility] [place] [id number] 18:19:00 Test Item Value Reference Range Interpretation Comments Glucose Lvl (test code = Glucose Lvl) 106 70-99 [facility] [place] [id number] 18:19:00 Test Item Value Reference Range Interpretation Comments BUN (test code = BUN) 37 7-22 [facility]2021-07-15 18:19:00 Test Item Value Reference Range Interpretation Comments Creatinine Lvl (test code = Creatinine 1.00 0.50-1.40 Lvl) [facility]2021-07-15 18:19:00 Test Item Value Reference Range Interpretation Comments Sodium Lvl (test code = Sodium Lvl) 140 135-145 [facility]2021-07-15 18:19:00 Test Item Value Reference Range Interpretation Comments Potassium Lvl (test code = Potassium 4.4 3.5-5.1 Lvl) [facility]2021-07-15 18:19:00 Test Item Value Reference Range Interpretation Comments Chloride Lvl (test code = Chloride Lvl) 104 95-109 [facility]2021-07-15 18:19:00 Test Item Value Reference Range Interpretation Comments CO2 (test code = CO2) 32 24-32 [facility]2021-07-15 18:19:00 Test Item Value Reference Range Interpretation Comments Calcium Lvl (test code = Calcium Lvl) 10.8 8.5-10.5 [facility]2021-07-15 18:19:00 Test Item Value Reference Range Interpretation Comments AGAP (test code = AGAP) 8.4 10.0-20.0 [facility]2021-07-15 18:19:00 Test Item Value Reference Range Interpretation Comments eGFR (test code = eGFR) 58 [facility]PT:ISOLATE:ORDQN:[id number] 18:19:00 Test Item Value Reference Range Interpretation Comments Culture: Urine (test >100,000 CFU/mL code = Culture: Escherichia coli <10,000 Urine) CFU/mL Skin Kimberly [facility]USC:PT:ISOLATE:ORDQN:[id number] 18:19:00 Test Item Value Reference Range Interpretation Comments Escherichia coli (test code Escherichia coli = Escherichia coli) [facility] Ho[id number] 18:19:00 Test Item Value Reference Range Interpretation Comments WBC X 10x3 (test code = WBC X 10x3) 8.2 3.7-10.4 [facility] HospitalNgwvxwuQQJXDTYAJD7973-53-02 18:19:00 Test Item Value Reference Range Interpretation Comments RBC X 10x6 (test code = RBC X 10x6) 3.81 4.20-5.40 [facility] HospitalInfmeyzERUCJSKJFR4107-21-35 18:19:00 Test Item Value Reference Range Interpretation Comments Hgb (test code = Hgb) 12.0 12.0-16.0 [facility] HospitalUfbxamgDYXOPFEQAV4279-52-98 18:19:00 Test Item Value Reference Range Interpretation Comments Hct (test code = Hct) 36.2 36.0-48.0 [facility] HospitalYhkwinuHAWULKPRBR5875-40-01 18:19:00 Test Item Value Reference Range Interpretation Comments MCV (test code = MCV) 95.2 80.0-98.0 [facility] HospitalIpucyzmDFDCHRIIOX5963-18-83 18:19:00 Test Item Value Reference Range Interpretation Comments MCH (test code = MCH) 31.5 pg 27.0-31.0 [facility] HospitalOjmpvemOXOQLVDLMJ2028-25-58 18:19:00 Test Item Value Reference Range Interpretation Comments MCHC (test code = MCHC) 33.1 32.0-36.0 [facility] HospitalTsrzoozNFQSVCIFWC9339-07-77 18:19:00 Test Item Value Reference Range Interpretation Comments RDW (test code = RDW) 13.0 11.5-14.5 [facility] Hospit[id number] 18:19:00 Test Item Value Reference Range Interpretation Comments Platelet (test code = Platelet) 239 133-450 [facility] Hospit[id number] 18:19:00 Test Item Value Reference Range Interpretation Comments MPV (test code = MPV) 7.8 7.4-10.4 [facility] HospitalLbpqkeaIOONSNPSBO0043-08-27 18:19:00 Test Item Value Reference Range Interpretation Comments PT (test code = PT) 13.9 s 12.0-14.7 [facility] HospitalEdcpydhQMVXHCTLLV8586-08-11 18:19:00 Test Item Value Reference Range Interpretation Comments INR (test code = INR) 1.08 1 0.85-1.17 [facility] HospitalImucjeyMDINLKFOJA3257-88-92 18:19:00 Test Item Value Reference Range Interpretation Comments PTT (test code = PTT) 29.2 s 22.9-35.8 [facility] HospitalXvpuydhLGSLPYJZKW6897-20-90 18:19:00 Test Item Value Reference Range Interpretation Comments Segs (test code = Segs) 63.1 45.0-75.0 [place] 362701-07-15 18:19:00 Test Item Value Reference Range Interpretation Comments Lymphocytes (test code = Lymphocytes) 23.0 20.0-40.0 [facility] Hospit[id number] 18:19:00 Test Item Value Reference Range Interpretation Comments Monocytes (test code = Monocytes) 7.5 2.0-12.0 [facility] HospitalUufvogoDAQMSWKOHM5505-74-89 18:19:00 Test Item Value Reference Range Interpretation Comments Eosinophils (test code = 5.0 See_Comment [A utomated message] The Eosinophils) system which ge nerated this result tra nsmitted reference range : <=4.0. The reference r katie was not used to int erpret this result as normal/abnormal . [facility] Hospit[id number] 18:19:00 Test Item Value Reference Range Interpretation Comments Basophils (test code = 1.4 See_Comment [Aut omated message] The Basophils) system which ge nerated this result tra nsmitted reference range : <=1.0. The reference r katie was not used to int erpret this result as normal/abnormal . [facility] HospitalOvxtejuCYCEXZSVIV9682-01-89 18:19:00 Test Item Value Reference Range Interpretation Comments Neutrophils # (test code = Neutrophils 5.2 1.5-8.1 #) [facility] HospitalKqlfjsbCDZLAJRHIK4484-66-28 18:19:00 Test Item Value Reference Range Interpretation Comments Lymphocytes # (test code = Lymphocytes 1.9 1.0-5.5 #) [facility] HospitalCktqsmjFAEQTXNUFG6035-48-33 18:19:00 Test Item Value Reference Range Interpretation Comments Monocytes # (test code 0.6 See_Comment [Aut omated message] The = Monocytes #) system which generated this result tra nsmitted reference range : <=0.8. The reference r katie was not used to int erpret this result as normal/abnormal . [facility] HospitalIsmvbbyJCZIXMUJVM4315-80-80 18:19:00 Test Item Value Reference Range Interpretation Comments Eosinophils # (test code 0.4 See_Comment [A utomated message] The = Eosinophils #) system whic h generated this result tra nsmitted reference range : <=0.5. The reference r katie was not used to int erpret this result as normal/abnormal . [place] 362701-07-15 18:19:00 Test Item Value Reference Range Interpretation Comments Basophils # (test code 0.1 See_Comment [Aut omated message] The = Basophils #) system which generated this result tra nsmitted reference range : <=0.2. The reference r katie was not used to int erpret this result as normal/abnormal . [facility] AND [id number] 18:19:00 Test Item Value Reference Range Interpretation Comments UA Turbidity (test code Slight *ABN*(01/08/21 = UA Turbidity) 1:19 PM) [facility] AND [id number] 18:19:00 Test Item Value Reference Range Interpretation Comments UA Spec Grav (test code = UA Spec 1.019 1 Grav) [facility] AND [id number] 18:19:00 Test Item Value Reference Range Interpretation Comments UA pH (test code = UA pH) 5.0 1 5.0-8.0 [facility] AND [id number] 18:19:00 Test Item Value Reference Range Interpretation Comments UA Protein (test code = UA Negative mg/dL Protein) [facility] AND [id number] 18:19:00 Test Item Value Reference Range Interpretation Comments UA Glucose (test code = UA Negative mg/dL Glucose) [facility] AND [id number] 18:19:00 Test Item Value Reference Range Interpretation Comments UA Ketones (test code = UA Negative mg/dL Ketones) [facility] AND [id number] 18:19:00 Test Item Value Reference Range Interpretation Comments UA Bili (test code = Negative *NA*(01/08/21 UA Bili) 1:19 PM) [facility] AND [id number] 18:19:00 Test Item Value Reference Range Interpretation Comments UA Blood (test code = Negative (01/08/21 1:19 UA Blood) PM) [facility] [id number] 18:19:00 Test Item Value Reference Range Interpretation Comments RBC product (test code Product available = RBC product) (01/08/21 1:19 PM) [facility] [id number] 18:19:00 Test Item Value Reference Range Interpretation Comments Glucose Lvl (test code = Glucose Lvl) 106 70-99 [facility]2021-07-15 18:19:00 Test Item Value Reference Range Interpretation Comments BUN (test code = BUN) 37 7-22 [facility]2021-07-15 18:19:00 Test Item Value Reference Range Interpretation Comments Creatinine Lvl (test code = Creatinine 1.00 0.50-1.40 Lvl) [facility]2021-07-15 18:19:00 Test Item Value Reference Range Interpretation Comments Sodium Lvl (test code = Sodium Lvl) 140 135-145 [facility]2021-07-15 18:19:00 Test Item Value Reference Range Interpretation Comments Potassium Lvl (test code = Potassium 4.4 3.5-5.1 Lvl) [facility] AND [id number] 18:19:00 Test Item Value Reference Range Interpretation Comments UA Nitrite (test code Positive *ABN*(01/08/21 = UA Nitrite) 1:19 PM) [facility]2021-07-15 18:19:00 Test Item Value Reference Range Interpretation Comments Chloride Lvl (test code = Chloride Lvl) 104 95-109 [facility]2021-07-15 18:19:00 Test Item Value Reference Range Interpretation Comments CO2 (test code = CO2) 32 24-32 [facility]2021-07-15 18:19:00 Test Item Value Reference Range Interpretation Comments Calcium Lvl (test code = Calcium Lvl) 10.8 8.5-10.5 [facility]2021-07-15 18:19:00 Test Item Value Reference Range Interpretation Comments AGAP (test code = AGAP) 8.4 10.0-20.0 [facility]2021-07-15 18:19:00 Test Item Value Reference Range Interpretation Comments eGFR (test code = eGFR) 58 [facility]C:PT:ISOLATE:ORDQN:[id number] 18:19:00 Test Item Value Reference Range Interpretation Comments Culture: Urine (test >100,000 CFU/mL code = Culture: Escherichia coli <10,000 Urine) CFU/mL Skin [facility]ly [facility]annERT[facility]ENEM:SUSC:PT:ISOLATE:ORDQN:[id number] 18:19:00 Test Item Value Reference Range Interpretation Comments Escherichia coli (test code Escherichia coli = Escherichia coli) [facility] HospitalQtvxkunZLGXQYOBAQ1753-43-41 18:19:00 Test Item Value Reference Range Interpretation Comments WBC X 10x3 (test code = WBC X 10x3) 8.2 3.7-10.4 [facility] HospitalSogwlexTIOIIBWOYG4708-65-20 18:19:00 Test Item Value Reference Range Interpretation Comments RBC X 10x6 (test code = RBC X 10x6) 3.81 4.20-5.40 [facility] HospitalQzpfookJQHWANYXZY2632-92-69 18:19:00 Test Item Value Reference Range Interpretation Comments Hgb (test code = Hgb) 12.0 12.0-16.0 [facility]2021-07-15 18:19:00 Test Item Value Reference Range Interpretation Comments UA Leuk Est (test code Large *ABN*(01/08/21 = UA Leuk Est) 1:19 PM) [facility] HospitalHxzzreiLWFDGHIGFD3290-29-47 18:19:00 Test Item Value Reference Range Interpretation Comments Hct (test code = Hct) 36.2 36.0-48.0 [facility] HospitalGopkajjXSZLHDWCPW6540-68-77 18:19:00 Test Item Value Reference Range Interpretation Comments MCV (test code = MCV) 95.2 80.0-98.0 [facility] HospitalQpxhqdiCFURJGMGUX1744-34-29 18:19:00 Test Item Value Reference Range Interpretation Comments MCH (test code = MCH) 31.5 pg 27.0-31.0 [facility] HospitalJoqnufzKZODFPLZRN7481-49-53 18:19:00 Test Item Value Reference Range Interpretation Comments MCHC (test code = MCHC) 33.1 32.0-36.0 [facility] Hospit[id number] 18:19:00 Test Item Value Reference Range Interpretation Comments RDW (test code = RDW) 13.0 11.5-14.5 [facility] HospitalNoinmspHAWMRGTWJT4987-53-01 18:19:00 Test Item Value Reference Range Interpretation Comments Platelet (test code = Platelet) 239 133-450 [facility] H[id number] 18:19:00 Test Item Value Reference Range Interpretation Comments MPV (test code = MPV) 7.8 7.4-10.4 [facility] HospitalVmkzaoaFUCAHOMVAZ9730-91-43 18:19:00 Test Item Value Reference Range Interpretation Comments PT (test code = PT) 13.9 s 12.0-14.7 [facility] HospitalFmuaephBKUOTIUZTR7637-99-45 18:19:00 Test Item Value Reference Range Interpretation Comments INR (test code = INR) 1.08 1 0.85-1.17 [facility] HospitalQxuyldjZAYBKCMGJR4202-80-14 18:19:00 Test Item Value Reference Range Interpretation Comments PTT (test code = PTT) 29.2 s 22.9-35.8 [facility]2021-07-15 18:19:00 Test Item Value Reference Range Interpretation Comments UA Sq Epi (test code = UA Sq Occasional /LPF Epi) [facility] HospitalLwylbsyEDGUGIQEJC3512-10-32 18:19:00 Test Item Value Reference Range Interpretation Comments Segs (test code = Segs) 63.1 45.0-75.0 [facility] HospitalKqhzcuxYJZMPLANAJ2156-15-71 18:19:00 Test Item Value Reference Range Interpretation Comments Lymphocytes (test code = Lymphocytes) 23.0 20.0-40.0 [id number] 18:19:00 Test Item Value Reference Range Interpretation Comments Monocytes (test code = Monocytes) 7.5 2.0-12.0 [facility] [id number] 18:19:00 Test Item Value Reference Range Interpretation Comments Eosinophils (test code = 5.0 See_Comment [A utomated message] The Eosinophils) system which ge nerated this result tra nsmitted reference range : <=4.0. The reference r katie was not used to int erpret this result as normal/abnormal . [facility] H[id number] 18:19:00 Test Item Value Reference Range Interpretation Comments Basophils (test code = 1.4 See_Comment [Aut omated message] The Basophils) system which ge nerated this result tra nsmitted reference range : <=1.0. The reference r katie was not used to int erpret this result as normal/abnormal . [facility] Ho[id number] 18:19:00 Test Item Value Reference Range Interpretation Comments Neutrophils # (test code = Neutrophils 5.2 1.5-8.1 #) [facility] H[id number] 18:19:00 Test Item Value Reference Range Interpretation Comments Lymphocytes # (test code = Lymphocytes 1.9 1.0-5.5 #) [facility] Hospit[id number] 18:19:00 Test Item Value Reference Range Interpretation Comments Monocytes # (test code 0.6 See_Comment [Aut omated message] The = Monocytes #) system which generated this result tra nsmitted reference range : <=0.8. The reference r katie was not used to int erpret this result as normal/abnormal . [facility] H[id number] 18:19:00 Test Item Value Reference Range Interpretation Comments Eosinophils # (test code 0.4 See_Comment [A utomated message] The = Eosinophils #) system whic h generated this result tra nsmitted reference range : <=0.5. The reference r katie was not used to int erpret this result as normal/abnormal . [facility] [id number] 18:19:00 Test Item Value Reference Range Interpretation Comments Basophils # (test code 0.1 See_Comment [Aut omated message] The = Basophils #) system which generated this result tra nsmitted reference range : <=0.2. The reference r katie was not used to int erpret this result as normal/abnormal . [facility] AND [id number] 18:19:00 Test Item Value Reference Range Interpretation Comments UA WBC (test code = 47 See_Comment [Automa matteo message] The UA WBC) system which ge nerated this result transmit matteo reference range : <=5. The reference range was not used to interpr et this result as miesha l/abnormal. [facility] AND [id number] 18:19:00 Test Item Value Reference Range Interpretation Comments UA Turbidity (test code Slight *ABN*(01/08/21 = UA Turbidity) 1:19 PM) [facility] AND [id number] 18:19:00 Test Item Value Reference Range Interpretation Comments UA Spec Grav (test code = UA Spec 1.019 1 Grav) [facility] AND [id number] 18:19:00 Test Item Value Reference Range Interpretation Comments UA pH (test code = UA pH) 5.0 1 5.0-8.0 [facility] AND [id number] 18:19:00 Test Item Value Reference Range Interpretation Comments UA Protein (test code = UA Negative mg/dL Protein) [facility] AND [id number] 18:19:00 Test Item Value Reference Range Interpretation Comments UA Glucose (test code = UA Negative mg/dL Glucose) [facility] [id number] 18:19:00 Test Item Value Reference Range Interpretation Comments UA Ketones (test code = UA Negative mg/dL Ketones) [facility] [id number] 18:19:00 Test Item Value Reference Range Interpretation Comments UA Bili (test code = Negative *NA*(01/08/21 UA Bili) 1:19 PM) [facility] AND [id number] 18:19:00 Test Item Value Reference Range Interpretation Comments UA Blood (test code = Negative (01/08/21 1:19 UA Blood) PM) [facility] AND [id number] 18:19:00 Test Item Value Reference Range Interpretation Comments UA Nitrite (test code Positive *ABN*(01/08/21 = UA Nitrite) 1:19 PM) [facility] AND [id number] 18:19:00 Test Item Value Reference Range Interpretation Comments UA Leuk Est (test code Large *ABN*(01/08/21 = UA Leuk Est) 1:19 PM) [facility] AND [id number] 18:19:00 Test Item Value Reference Range Interpretation Comments UA RBC (test code = 2 See_Comment [Automa matteo message] The UA RBC) system which ge nerated this result transmit matteo reference range : <=2. The reference range was not used to interpr et this result as miesha l/abnormal. [facility] [id number] 18:19:00 Test Item Value Reference Range Interpretation Comments UA Sq Epi (test code = UA Sq Occasional /LPF Epi) [facility] AND [id number] 18:19:00 Test Item Value Reference Range Interpretation Comments UA WBC (test code = 47 See_Comment [Automa matteo message] The UA WBC) system which ge nerated this result transmit matteo reference range : <=5. The reference range was not used to interpr et this result as miesha l/abnormal. [facility] [id number] 18:19:00 Test Item Value Reference Range Interpretation Comments UA RBC (test code = 2 See_Comment [Automa matteo message] The UA RBC) system which ge nerated this result transmit matteo reference range : <=2. The reference range was not used to interpr et this result as miesha l/abnormal. [facility] AND [id number] 18:19:00 Test Item Value Reference Range Interpretation Comments UA Bacteria (test code = UA Moderate /HPF Bacteria) [facility] AND [id number] 18:19:00 Test Item Value Reference Range Interpretation Comments UA Mucus (test code = UA Mucus) Few /LPF [facility] AND [id number] 18:19:00 Test Item Value Reference Range Interpretation Comments UA Color (test code = UA Color) Yellow [facility] AND [id number] 18:19:00 Test Item Value Reference Range Interpretation Comments UA Urobilinogen (test code = UA no gt 0.1-1.0 Urobilinogen) [facility] AND [id number] 18:19:00 Test Item Value Reference Range Interpretation Comments UA Bacteria (test code = UA Moderate /HPF Bacteria) [facility] AND [id number] 18:19:00 Test Item Value Reference Range Interpretation Comments UA Mucus (test code = UA Mucus) Few /LPF [facility] AND [id number] 18:19:00 Test Item Value Reference Range Interpretation Comments UA Color (test code = UA Color) Yellow [facility] AND [id number] 18:19:00 Test Item Value Reference Range Interpretation Comments UA Urobilinogen (test code = UA no gt 0.1-1.0 Urobilinogen) [facility] [id number] 18:19:00 Test Item Value Reference Range Interpretation Comments RBC product (test code Product available = RBC product) (01/08/21 1:19 PM) [facility] [id number] 18:19:00 Test Item Value Reference Range Interpretation Comments Glucose Lvl (test code = Glucose Lvl) 106 70-99 [facility] [id number] 18:19:00 Test Item Value Reference Range Interpretation Comments BUN (test code = BUN) 37 7-22 [facility] [id number] 18:19:00 Test Item Value Reference Range Interpretation Comments Creatinine Lvl (test code = Creatinine 1.00 0.50-1.40 Lvl) [facility]2021-07-15 18:19:00 Test Item Value Reference Range Interpretation Comments Sodium Lvl (test code = Sodium Lvl) 140 135-145 [facility]2021-07-15 18:19:00 Test Item Value Reference Range Interpretation Comments Potassium Lvl (test code = Potassium 4.4 3.5-5.1 Lvl) [facility]2021-07-15 18:19:00 Test Item Value Reference Range Interpretation Comments Chloride Lvl (test code = Chloride Lvl) 104 95-109 [facility]2021-07-15 18:19:00 Test Item Value Reference Range Interpretation Comments CO2 (test code = CO2) 32 24-32 [facility]2021-07-15 18:19:00 Test Item Value Reference Range Interpretation Comments Calcium Lvl (test code = Calcium Lvl) 10.8 8.5-10.5 [facility]2021-07-15 18:19:00 Test Item Value Reference Range Interpretation Comments AGAP (test code = AGAP) 8.4 10.0-20.0 [facility]2021-07-15 18:19:00 Test Item Value Reference Range Interpretation Comments eGFR (test code = eGFR) 58 [facility] CenterERTAPENEM:SUSC:PT:ISOLATE:ORDQN:[id number] 18:19:00 Test Item Value Reference Range Interpretation Comments Culture: Urine (test >100,000 CFU/mL code = Culture: Escherichia coli <10,000 Urine) CFU/mL Skin Kimberly [facility] CenterERTAPENEM:SUSC:PT:ISOLATE:ORDQN:[id number] 18:19:00 Test Item Value Reference Range Interpretation Comments Escherichia coli (test code Escherichia coli = Escherichia coli) [facility] [id number] 18:19:00 Test Item Value Reference Range Interpretation Comments WBC X 10x3 (test code = WBC X 10x3) 8.2 3.7-10.4 [facility] [id number] 18:19:00 Test Item Value Reference Range Interpretation Comments RBC X 10x6 (test code = RBC X 10x6) 3.81 4.20-5.40 [facility] [id number] 18:19:00 Test Item Value Reference Range Interpretation Comments RBC product (test code Product available = RBC product) (01/08/21 1:19 PM) [facility]2021-07-15 18:19:00 Test Item Value Reference Range Interpretation Comments Glucose Lvl (test code = Glucose Lvl) 106 70-99 [facility]2021-07-15 18:19:00 Test Item Value Reference Range Interpretation Comments BUN (test code = BUN) 37 7-22 [facility]2021-07-15 18:19:00 Test Item Value Reference Range Interpretation Comments Creatinine Lvl (test code = Creatinine 1.00 0.50-1.40 Lvl) [facility]2021-07-15 18:19:00 Test Item Value Reference Range Interpretation Comments Sodium Lvl (test code = Sodium Lvl) 140 135-145 [facility] Hospit[id number] 18:19:00 Test Item Value Reference Range Interpretation Comments Hgb (test code = Hgb) 12.0 12.0-16.0 [facility]2021-07-15 18:19:00 Test Item Value Reference Range Interpretation Comments Potassium Lvl (test code = Potassium 4.4 3.5-5.1 Lvl) [facility]2021-07-15 18:19:00 Test Item Value Reference Range Interpretation Comments Chloride Lvl (test code = Chloride Lvl) 104 95-109 [facility]2021-07-15 18:19:00 Test Item Value Reference Range Interpretation Comments CO2 (test code = CO2) 32 24-32 [facility]2021-07-15 18:19:00 Test Item Value Reference Range Interpretation Comments Calcium Lvl (test code = Calcium Lvl) 10.8 8.5-10.5 [facility]2021-07-15 18:19:00 Test Item Value Reference Range Interpretation Comments AGAP (test code = AGAP) 8.4 10.0-20.0 [facility]2021-07-15 18:19:00 Test Item Value Reference Range Interpretation Comments eGFR (test code = eGFR) 58 [facility] CenterERTAPENEM:SUSC:PT:ISOLATE:ORDQN:[id number] 18:19:00 Test Item Value Reference Range Interpretation Comments Culture: Urine (test >100,000 CFU/mL code = Culture: Escherichia coli <10,000 Urine) CFU/mL Skin Kimberly [facility] CenterERTAPENEM:SUSC:PT:ISOLATE:ORDQN:[id number] 18:19:00 Test Item Value Reference Range Interpretation Comments Escherichia coli (test code Escherichia coli = Escherichia coli) [facility] H[id number] 18:19:00 Test Item Value Reference Range Interpretation Comments WBC X 10x3 (test code = WBC X 10x3) 8.2 3.7-10.4 [facility] H[id number] 18:19:00 Test Item Value Reference Range Interpretation Comments RBC X 10x6 (test code = RBC X 10x6) 3.81 4.20-5.40 [facility] HospitalImczcubKPEASJTRMN5754-68-08 18:19:00 Test Item Value Reference Range Interpretation Comments Hct (test code = Hct) 36.2 36.0-48.0 [facility] HospitalPvcnyamZHKNNTAJGC5675-20-04 18:19:00 Test Item Value Reference Range Interpretation Comments Hgb (test code = Hgb) 12.0 12.0-16.0 [facility] Hospit[id number] 18:19:00 Test Item Value Reference Range Interpretation Comments Hct (test code = Hct) 36.2 36.0-48.0 [facility] Ho[id number] 18:19:00 Test Item Value Reference Range Interpretation Comments MCV (test code = MCV) 95.2 80.0-98.0 [facility] Hospit[id number] 18:19:00 Test Item Value Reference Range Interpretation Comments MCH (test code = MCH) 31.5 pg 27.0-31.0 [facility] H[id number] 18:19:00 Test Item Value Reference Range Interpretation Comments MCHC (test code = MCHC) 33.1 32.0-36.0 [facility] Ho[id number] 18:19:00 Test Item Value Reference Range Interpretation Comments RDW (test code = RDW) 13.0 11.5-14.5 [id number] 18:19:00 Test Item Value Reference Range Interpretation Comments Platelet (test code = Platelet) 239 133-450 [place] 362701-07-15 18:19:00 Test Item Value Reference Range Interpretation Comments MPV (test code = MPV) 7.8 7.4-10.4 [place] [address]-07-15 18:19:00 Test Item Value Reference Range Interpretation Comments PT (test code = PT) 13.9 s 12.0-14.7 [place] [address]-07-15 18:19:00 Test Item Value Reference Range Interpretation Comments INR (test code = INR) 1.08 1 0.85-1.17 [place] [address]-07-15 18:19:00 Test Item Value Reference Range Interpretation Comments MCV (test code = MCV) 95.2 80.0-98.0 [place] [address]-07-15 18:19:00 Test Item Value Reference Range Interpretation Comments PTT (test code = PTT) 29.2 s 22.9-35.8 [place] [address]-07-15 18:19:00 Test Item Value Reference Range Interpretation Comments Segs (test code = Segs) 63.1 45.0-75.0 [place] [address]-07-15 18:19:00 Test Item Value Reference Range Interpretation Comments Lymphocytes (test code = Lymphocytes) 23.0 20.0-40.0 [place] [address]-07-15 18:19:00 Test Item Value Reference Range Interpretation Comments Monocytes (test code = Monocytes) 7.5 2.0-12.0 [place] 362701-07-15 18:19:00 Test Item Value Reference Range Interpretation Comments Eosinophils (test code = 5.0 See_Comment [A utomated message] The Eosinophils) system which ge nerated this result tra nsmitted reference range : <=4.0. The reference r katie was not used to int erpret this result as normal/abnormal . [place] [address]-07-15 18:19:00 Test Item Value Reference Range Interpretation Comments Basophils (test code = 1.4 See_Comment [Aut omated message] The Basophils) system which ge nerated this result tra nsmitted reference range : <=1.0. The reference r katie was not used to int erpret this result as normal/abnormal . [place] [address]-07-15 18:19:00 Test Item Value Reference Range Interpretation Comments Neutrophils # (test code = Neutrophils 5.2 1.5-8.1 #) [facility] H[id number] 18:19:00 Test Item Value Reference Range Interpretation Comments Lymphocytes # (test code = Lymphocytes 1.9 1.0-5.5 #) [facility] H[id number] 18:19:00 Test Item Value Reference Range Interpretation Comments Monocytes # (test code 0.6 See_Comment [Aut omated message] The = Monocytes #) system which generated this result tra nsmitted reference range : <=0.8. The reference r katie was not used to int erpret this result as normal/abnormal . [facility] Ho[id number] 18:19:00 Test Item Value Reference Range Interpretation Comments Eosinophils # (test code 0.4 See_Comment [A utomated message] The = Eosinophils #) system whic h generated this result tra nsmitted reference range : <=0.5. The reference r katie was not used to int erpret this result as normal/abnormal . [facility] HospitalExsstozWDOAQPRDXY1878-10-67 18:19:00 Test Item Value Reference Range Interpretation Comments MCH (test code = MCH) 31.5 pg 27.0-31.0 [facility] HospitalNrihxwqGVCFDASSGE1387-27-61 18:19:00 Test Item Value Reference Range Interpretation Comments Basophils # (test code 0.1 See_Comment [Aut omated message] The = Basophils #) system which generated this result tra nsmitted reference range : <=0.2. The reference r katie was not used to int erpret this result as normal/abnormal . [facility] AND [id number] 18:19:00 Test Item Value Reference Range Interpretation Comments UA Turbidity (test code Slight *ABN*(01/08/21 = UA Turbidity) 1:19 PM) [facility] AND [id number] 18:19:00 Test Item Value Reference Range Interpretation Comments UA Spec Grav (test code = UA Spec 1.019 1 Grav) [facility] AND [id number] 18:19:00 Test Item Value Reference Range Interpretation Comments UA pH (test code = UA pH) 5.0 1 5.0-8.0 [facility] AND [id number] 18:19:00 Test Item Value Reference Range Interpretation Comments UA Protein (test code = UA Negative mg/dL Protein) [facility] [id number] 18:19:00 Test Item Value Reference Range Interpretation Comments UA Glucose (test code = UA Negative mg/dL Glucose) [facility] AND [id number] 18:19:00 Test Item Value Reference Range Interpretation Comments UA Ketones (test code = UA Negative mg/dL Ketones) [facility] AND [id number] 18:19:00 Test Item Value Reference Range Interpretation Comments UA Bili (test code = Negative *NA*(01/08/21 UA Bili) 1:19 PM) [facility] AND [id number] 18:19:00 Test Item Value Reference Range Interpretation Comments UA Blood (test code = Negative (01/08/21 1:19 UA Blood) PM) [facility] AND [id number] 18:19:00 Test Item Value Reference Range Interpretation Comments UA Nitrite (test code Positive *ABN*(01/08/21 = UA Nitrite) 1:19 PM) [facility] VrtozgwOOLBYJKXPU4491-18-26 18:19:00 Test Item Value Reference Range Interpretation Comments MCHC (test code = MCHC) 33.1 32.0-36.0 [facility] AND [id number] 18:19:00 Test Item Value Reference Range Interpretation Comments UA Leuk Est (test code Large *ABN*(01/08/21 = UA Leuk Est) 1:19 PM) [facility] AND [id number] 18:19:00 Test Item Value Reference Range Interpretation Comments UA Sq Epi (test code = UA Sq Occasional /LPF Epi) [facility] AND [id number] 18:19:00 Test Item Value Reference Range Interpretation Comments UA WBC (test code = 47 See_Comment [Automa matteo message] The UA WBC) system which ge nerated this result transmit matteo reference range : <=5. The reference range was not used to interpr et this result as miesha l/abnormal. [facility] AND [id number] 18:19:00 Test Item Value Reference Range Interpretation Comments UA RBC (test code = 2 See_Comment [Automa matteo message] The UA RBC) system which ge nerated this result transmit matteo reference range : <=2. The reference range was not used to interpr et this result as miesha l/abnormal. [facility] AND [id number] 18:19:00 Test Item Value Reference Range Interpretation Comments UA Bacteria (test code = UA Moderate /HPF Bacteria) [facility] AND [id number] 18:19:00 Test Item Value Reference Range Interpretation Comments UA Mucus (test code = UA Mucus) Few /LPF [facility] AND [id number] 18:19:00 Test Item Value Reference Range Interpretation Comments UA Color (test code = UA Color) Yellow [facility] AND [id number] 18:19:00 Test Item Value Reference Range Interpretation Comments UA Urobilinogen (test code = UA no gt 0.1-1.0 Urobilinogen) [facility] H[id number] 18:19:00 Test Item Value Reference Range Interpretation Comments RDW (test code = RDW) 13.0 11.5-14.5 [facility] [id number] 18:19:00 Test Item Value Reference Range Interpretation Comments Platelet (test code = Platelet) 239 133-450 [facility] [id number] 18:19:00 Test Item Value Reference Range Interpretation Comments MPV (test code = MPV) 7.8 7.4-10.4 [facility] H[id number] 18:19:00 Test Item Value Reference Range Interpretation Comments PT (test code = PT) 13.9 s 12.0-14.7 [facility] H[id number] 18:19:00 Test Item Value Reference Range Interpretation Comments INR (test code = INR) 1.08 1 0.85-1.17 [facility] HospitalBeqyezkETDVROYWFE7977-29-86 18:19:00 Test Item Value Reference Range Interpretation Comments PTT (test code = PTT) 29.2 s 22.9-35.8 [facility] HospitalZvurmgmLVWURLUXZO0151-88-98 18:19:00 Test Item Value Reference Range Interpretation Comments Segs (test code = Segs) 63.1 45.0-75.0 [facility] HospitalHpvztbbUGOZEEGUPI6529-52-64 18:19:00 Test Item Value Reference Range Interpretation Comments Lymphocytes (test code = Lymphocytes) 23.0 20.0-40.0 [place] 362701-07-15 18:19:00 Test Item Value Reference Range Interpretation Comments Monocytes (test code = Monocytes) 7.5 2.0-12.0 [facility] Hos[id number] 18:19:00 Test Item Value Reference Range Interpretation Comments Eosinophils (test code = 5.0 See_Comment [A utomated message] The Eosinophils) system which ge nerated this result tra nsmitted reference range : <=4.0. The reference r katie was not used to int erpret this result as normal/abnormal . [facility] HospitalXqxwnejFXZIUHSRKM4442-89-01 18:19:00 Test Item Value Reference Range Interpretation Comments Basophils (test code = 1.4 See_Comment [Aut omated message] The Basophils) system which ge nerated this result tra nsmitted reference range : <=1.0. The reference r katie was not used to int erpret this result as normal/abnormal . [facility] HospitalRgyxcmaVFELEBOWCS1437-04-21 18:19:00 Test Item Value Reference Range Interpretation Comments Neutrophils # (test code = Neutrophils 5.2 1.5-8.1 #) [facility] Hos[id number] 18:19:00 Test Item Value Reference Range Interpretation Comments Lymphocytes # (test code = Lymphocytes 1.9 1.0-5.5 #) [facility] H[id number] 18:19:00 Test Item Value Reference Range Interpretation Comments Monocytes # (test code 0.6 See_Comment [Aut omated message] The = Monocytes #) system which generated this result tra nsmitted reference range : <=0.8. The reference r katie was not used to int erpret this result as normal/abnormal . [facility] HospitalVtmpwiqOWFXRMECPV7230-86-27 18:19:00 Test Item Value Reference Range Interpretation Comments Eosinophils # (test code 0.4 See_Comment [A utomated message] The = Eosinophils #) system whic h generated this result tra nsmitted reference range : <=0.5. The reference r katie was not used to int erpret this result as normal/abnormal . [facility] HospitalVhxiaixPLYZVCODGY5666-06-01 18:19:00 Test Item Value Reference Range Interpretation Comments Basophils # (test code 0.1 See_Comment [Aut omated message] The = Basophils #) system which generated this result tra nsmitted reference range : <=0.2. The reference r katie was not used to int erpret this result as normal/abnormal . [facility] AND [id number] 18:19:00 Test Item Value Reference Range Interpretation Comments UA Turbidity (test code Slight *ABN*(01/08/21 = UA Turbidity) 1:19 PM) [facility] AND [id number] 18:19:00 Test Item Value Reference Range Interpretation Comments UA Spec Grav (test code = UA Spec 1.019 1 Grav) [facility] AND [id number] 18:19:00 Test Item Value Reference Range Interpretation Comments UA pH (test code = UA pH) 5.0 1 5.0-8.0 [facility] AND [id number] 18:19:00 Test Item Value Reference Range Interpretation Comments UA Protein (test code = UA Negative mg/dL Protein) [facility] AND [id number] 18:19:00 Test Item Value Reference Range Interpretation Comments UA Glucose (test code = UA Negative mg/dL Glucose) [facility] AND [id number] 18:19:00 Test Item Value Reference Range Interpretation Comments UA Ketones (test code = UA Negative mg/dL Ketones) [facility] AND [id number] 18:19:00 Test Item Value Reference Range Interpretation Comments UA Bili (test code = Negative *NA*(01/08/21 UA Bili) 1:19 PM) [facility] AND [id number] 18:19:00 Test Item Value Reference Range Interpretation Comments UA Blood (test code = Negative (01/08/21 1:19 UA Blood) PM) [facility] AND [id number] 18:19:00 Test Item Value Reference Range Interpretation Comments UA Nitrite (test code Positive *ABN*(01/08/21 = UA Nitrite) 1:19 PM) [facility] AND [id number] 18:19:00 Test Item Value Reference Range Interpretation Comments UA Leuk Est (test code Large *ABN*(01/08/21 = UA Leuk Est) 1:19 PM) [facility] AND [id number] 18:19:00 Test Item Value Reference Range Interpretation Comments UA Sq Epi (test code = UA Sq Occasional /LPF Epi) [facility] AND [id number] 18:19:00 Test Item Value Reference Range Interpretation Comments UA WBC (test code = 47 See_Comment [Automa matteo message] The UA WBC) system which ge nerated this result transmit matteo reference range : <=5. The reference range was not used to interpr et this result as miesha l/abnormal. [facility] AND [id number] 18:19:00 Test Item Value Reference Range Interpretation Comments UA RBC (test code = 2 See_Comment [Automa matteo message] The UA RBC) system which ge nerated this result transmit matteo reference range : <=2. The reference range was not used to interpr et this result as miesha l/abnormal. [facility] AND [id number] 18:19:00 Test Item Value Reference Range Interpretation Comments UA Bacteria (test code = UA Moderate /HPF Bacteria) [facility] AND [id number] 18:19:00 Test Item Value Reference Range Interpretation Comments UA Mucus (test code = UA Mucus) Few /LPF [facility] AND [id number] 18:19:00 Test Item Value Reference Range Interpretation Comments UA Color (test code = UA Color) Yellow [facility] AND [id number] 18:19:00 Test Item Value Reference Range Interpretation Comments UA Urobilinogen (test code = UA no gt 0.1-1.0 [facility]ilinogen) [facility] [id number] 08:06:00 Test Item Value Reference Range Interpretation Comments Glucose Lvl (test code = Glucose Lvl) 112 70-99 [facility] [id number] 08:06:00 Test Item Value Reference Range Interpretation Comments BUN (test code = BUN) 21 7-22 [facility] [id number] 08:06:00 Test Item Value Reference Range Interpretation Comments Creatinine Lvl (test code = Creatinine 0.70 0.50-1.40 Lvl) [facility] [id number] 08:06:00 Test Item Value Reference Range Interpretation Comments Sodium Lvl (test code = Sodium Lvl) 139 135-145 [facility] [id number] 08:06:00 Test Item Value Reference Range Interpretation Comments Potassium Lvl (test code = Potassium 4.3 3.5-5.1 Lvl) [place] 831881-05-05 08:06:00 Test Item Value Reference Range Interpretation Comments Chloride Lvl (test code = Chloride Lvl) 105 95-109 [facility]2021-05-05 08:06:00 Test Item Value Reference Range Interpretation Comments CO2 (test code = CO2) 26 24-32 [place] 831881-05-05 08:06:00 Test Item Value Reference Range Interpretation Comments Calcium Lvl (test code = Calcium Lvl) 8.6 8.5-10.5 [place] 831881-05-05 08:06:00 Test Item Value Reference Range Interpretation Comments AGAP (test code = AGAP) 12.3 10.0-20.0 [facility]2021-05-05 08:06:00 Test Item Value Reference Range Interpretation Comments eGFR (test code = eGFR) 89 [place] 831881-05-05 08:06:00 Test Item Value Reference Range Interpretation Comments Magnesium Lvl (test code = Magnesium 2.2 1.8-2.4 Lvl) [facility]2021-05-05 08:06:00 Test Item Value Reference Range Interpretation Comments Phosphorus (test code = Phosphorus) 3.0 2.5-4.5 [id number] 08:06:00 Test Item Value Reference Range Interpretation Comments WBC X 10x3 (test code = WBC X 10x3) 11.2 3.7-10.4 [place] 362701-05-05 08:06:00 Test Item Value Reference Range Interpretation Comments RBC X 10x6 (test code = RBC X 10x6) 3.22 4.20-5.40 [place] 362701-05-05 08:06:00 Test Item Value Reference Range Interpretation Comments Hgb (test code = Hgb) 10.3 12.0-16.0 [place] 362701-05-05 08:06:00 Test Item Value Reference Range Interpretation Comments Hct (test code = Hct) 30.6 36.0-48.0 [place] 362701-05-05 08:06:00 Test Item Value Reference Range Interpretation Comments MCV (test code = MCV) 94.8 80.0-98.0 [facility]QzshyxbMDDJTULVYO2827-33-88 08:06:00 Test Item Value Reference Range Interpretation Comments MCH (test code = MCH) 31.9 pg 27.0-31.0 [facility] HospitalIbtbzviBWNNFHUPNY7405-86-94 08:06:00 Test Item Value Reference Range Interpretation Comments MCHC (test code = MCHC) 33.6 32.0-36.0 [facility] HospitalTvpidwgZVDPDSJPTC2716-46-16 08:06:00 Test Item Value Reference Range Interpretation Comments RDW (test code = RDW) 12.7 11.5-14.5 [facility] Hospit[id number] 08:06:00 Test Item Value Reference Range Interpretation Comments Platelet (test code = Platelet) 179 133-450 [facility] HospitalQgafcpdBFOZTFIFDA2973-54-49 08:06:00 Test Item Value Reference Range Interpretation Comments MPV (test code = MPV) 7.5 7.4-10.4 [facility] HospitalMnbaopyOTREKPMULI1280-52-14 08:06:00 Test Item Value Reference Range Interpretation Comments PT (test code = PT) 13.2 s 12.0-14.7 [facility] HospitalZnbnopvJCQBLBATOF8002-95-26 08:06:00 Test Item Value Reference Range Interpretation Comments INR (test code = INR) 1.01 1 0.85-1.17 [facility] HospitalN[id number] 08:06:00 Test Item Value Reference Range Interpretation Comments PTT (test code = PTT) 29.1 s 22.9-35.8 [facility] HospitalXyogrhfITYVADHLXU7413-19-87 08:06:00 Test Item Value Reference Range Interpretation Comments Segs (test code = Segs) 88.3 45.0-75.0 [facility] HospitalVdvqdgpGPHXVFZVXJ7284-80-56 08:06:00 Test Item Value Reference Range Interpretation Comments Lymphocytes (test code = Lymphocytes) 7.7 20.0-40.0 [facility] HospitalKtuxqoaWLJKFSUVDB5002-86-25 08:06:00 Test Item Value Reference Range Interpretation Comments Monocytes (test code = Monocytes) 3.7 2.0-12.0 [facility] HospitalDwdrmffBPLZPHQTGP3281-66-59 08:06:00 Test Item Value Reference Range Interpretation Comments Basophils (test code = 0.3 See_Comment [Aut omated message] The Basophils) system which ge nerated this result tra nsmitted reference range : <=1.0. The reference r katie was not used to int erpret this result as normal/abnormal . [place] 362701-05-05 08:06:00 Test Item Value Reference Range Interpretation Comments Neutrophils # (test code = Neutrophils 9.9 1.5-8.1 #) [place] 362701-05-05 08:06:00 Test Item Value Reference Range Interpretation Comments Lymphocytes # (test code = Lymphocytes 0.9 1.0-5.5 #) [place] 362701-05-05 08:06:00 Test Item Value Reference Range Interpretation Comments Monocytes # (test code 0.4 See_Comment [Aut omated message] The = Monocytes #) system which generated this result tra nsmitted reference range : <=0.8. The reference r katie was not used to int erpret this result as normal/abnormal . [place] 245431-05-05 08:06:00 Test Item Value Reference Range Interpretation Comments Ca Ion WB (test code = Ca Ion WB) 1.08 1.05-1.25 [place] 245431-05-05 08:06:00 Test Item Value Reference Range Interpretation Comments Ca Norm WB (test code = Ca Norm WB) 1.12 1.05-1.25 [place] 831881-05-05 08:06:00 Test Item Value Reference Range Interpretation Comments Glucose Lvl (test code = Glucose Lvl) 112 70-99 [facility] [id number] 08:06:00 Test Item Value Reference Range Interpretation Comments BUN (test code = BUN) 21 7-22 [place] 831881-05-05 08:06:00 Test Item Value Reference Range Interpretation Comments Creatinine Lvl (test code = Creatinine 0.70 0.50-1.40 Lvl) [place] 831881-05-05 08:06:00 Test Item Value Reference Range Interpretation Comments Sodium Lvl (test code = Sodium Lvl) 139 135-145 [place] 831881-05-05 08:06:00 Test Item Value Reference Range Interpretation Comments Potassium Lvl (test code = Potassium 4.3 3.5-5.1 Lvl) [place] 831881-05-05 08:06:00 Test Item Value Reference Range Interpretation Comments Chloride Lvl (test code = Chloride Lvl) 105 95-109 [place] 831881-05-05 08:06:00 Test Item Value Reference Range Interpretation Comments CO2 (test code = CO2) 26 24-32 [place] 831881-05-05 08:06:00 Test Item Value Reference Range Interpretation Comments Calcium Lvl (test code = Calcium Lvl) 8.6 8.5-10.5 [place] 831881-05-05 08:06:00 Test Item Value Reference Range Interpretation Comments AGAP (test code = AGAP) 12.3 10.0-20.0 [place] 831881-05-05 08:06:00 Test Item Value Reference Range Interpretation Comments eGFR (test code = eGFR) 89 [place] 831881-05-05 08:06:00 Test Item Value Reference Range Interpretation Comments Magnesium Lvl (test code = Magnesium 2.2 1.8-2.4 Lvl) [place] 831881-05-05 08:06:00 Test Item Value Reference Range Interpretation Comments Phosphorus (test code = Phosphorus) 3.0 2.5-4.5 [place] 362701-05-05 08:06:00 Test Item Value Reference Range Interpretation Comments WBC X 10x3 (test code = WBC X 10x3) 11.2 3.7-10.4 [place] 362701-05-05 08:06:00 Test Item Value Reference Range Interpretation Comments RBC X 10x6 (test code = RBC X 10x6) 3.22 4.20-5.40 [place] 362701-05-05 08:06:00 Test Item Value Reference Range Interpretation Comments Hgb (test code = Hgb) 10.3 12.0-16.0 [place] [address]-05-05 08:06:00 Test Item Value Reference Range Interpretation Comments Hct (test code = Hct) 30.6 36.0-48.0 [place] [address]-05-05 08:06:00 Test Item Value Reference Range Interpretation Comments MCV (test code = MCV) 94.8 80.0-98.0 [place] 362701-05-05 08:06:00 Test Item Value Reference Range Interpretation Comments MCH (test code = MCH) 31.9 pg 27.0-31.0 [facility] HospitalSgywaqhUKLVZRCIHB1424-01-57 08:06:00 Test Item Value Reference Range Interpretation Comments MCHC (test code = MCHC) 33.6 32.0-36.0 [facility] HospitalFzjgvkyMNEIZQMHWO6826-33-00 08:06:00 Test Item Value Reference Range Interpretation Comments RDW (test code = RDW) 12.7 11.5-14.5 [facility] HospitalTbbahncAGAAPYMULJ5795-63-63 08:06:00 Test Item Value Reference Range Interpretation Comments Platelet (test code = Platelet) 179 133-450 [facility] HospitalRdptjtuHJNLMJZYBM6398-86-00 08:06:00 Test Item Value Reference Range Interpretation Comments MPV (test code = MPV) 7.5 7.4-10.4 [facility] HospitalVjlpklrDJAFGXCADT8617-32-95 08:06:00 Test Item Value Reference Range Interpretation Comments PT (test code = PT) 13.2 s 12.0-14.7 [facility] HospitalMmkaxyvYZWDHNNYBK2531-43-56 08:06:00 Test Item Value Reference Range Interpretation Comments INR (test code = INR) 1.01 1 0.85-1.17 [facility] HospitalImserixDDFNDHHQWE1065-09-92 08:06:00 Test Item Value Reference Range Interpretation Comments PTT (test code = PTT) 29.1 s 22.9-35.8 [facility] HospitalRvgqreuFOXFEOIXZY9071-68-48 08:06:00 Test Item Value Reference Range Interpretation Comments Segs (test code = Segs) 88.3 45.0-75.0 [facility] HospitalJasafhbZURLSBRTWZ1625-96-44 08:06:00 Test Item Value Reference Range Interpretation Comments Lymphocytes (test code = Lymphocytes) 7.7 20.0-40.0 [facility] HospitalJvuooidTIQKDSUZLY7723-83-83 08:06:00 Test Item Value Reference Range Interpretation Comments Monocytes (test code = Monocytes) 3.7 2.0-12.0 [facility] HospitalDtcsxyzYVIGTUPHWN9796-08-34 08:06:00 Test Item Value Reference Range Interpretation Comments Basophils (test code = 0.3 See_Comment [Aut omated message] The Basophils) system which ge nerated this result tra nsmitted reference range : <=1.0. The reference r katie was not used to int erpret this result as normal/abnormal . [place] 362701-05-05 08:06:00 Test Item Value Reference Range Interpretation Comments Neutrophils # (test code = Neutrophils 9.9 1.5-8.1 #) [place] 362701-05-05 08:06:00 Test Item Value Reference Range Interpretation Comments Lymphocytes # (test code = Lymphocytes 0.9 1.0-5.5 #) [place] 362701-05-05 08:06:00 Test Item Value Reference Range Interpretation Comments Monocytes # (test code 0.4 See_Comment [Aut omated message] The = Monocytes #) system which generated this result tra nsmitted reference range : <=0.8. The reference r katie was not used to int erpret this result as normal/abnormal . [place] 245431-05-05 08:06:00 Test Item Value Reference Range Interpretation Comments Ca Ion WB (test code = Ca Ion WB) 1.08 1.05-1.25 [place] [address]-05-05 08:06:00 Test Item Value Reference Range Interpretation Comments Ca Norm WB (test code = Ca Norm WB) 1.12 1.05-1.25 [place] 831881-05-05 08:06:00 Test Item Value Reference Range Interpretation Comments Glucose Lvl (test code = Glucose Lvl) 112 70-99 [place] 831881-05-05 08:06:00 Test Item Value Reference Range Interpretation Comments BUN (test code = BUN) 21 7-22 [place] 831881-05-05 08:06:00 Test Item Value Reference Range Interpretation Comments Creatinine Lvl (test code = Creatinine 0.70 0.50-1.40 Lvl) [place] 831881-05-05 08:06:00 Test Item Value Reference Range Interpretation Comments Sodium Lvl (test code = Sodium Lvl) 139 135-145 [place] 831881-05-05 08:06:00 Test Item Value Reference Range Interpretation Comments Potassium Lvl (test code = Potassium 4.3 3.5-5.1 Lvl) [place] 831881-05-05 08:06:00 Test Item Value Reference Range Interpretation Comments Chloride Lvl (test code = Chloride Lvl) 105 95-109 [facility]2021-05-05 08:06:00 Test Item Value Reference Range Interpretation Comments CO2 (test code = CO2) 26 24-32 [place] 831881-05-05 08:06:00 Test Item Value Reference Range Interpretation Comments Calcium Lvl (test code = Calcium Lvl) 8.6 8.5-10.5 [place] 831881-05-05 08:06:00 Test Item Value Reference Range Interpretation Comments AGAP (test code = AGAP) 12.3 10.0-20.0 [place] 831881-05-05 08:06:00 Test Item Value Reference Range Interpretation Comments eGFR (test code = eGFR) 89 [place] 831881-05-05 08:06:00 Test Item Value Reference Range Interpretation Comments Magnesium Lvl (test code = Magnesium 2.2 1.8-2.4 Lvl) [place] 831881-05-05 08:06:00 Test Item Value Reference Range Interpretation Comments Phosphorus (test code = Phosphorus) 3.0 2.5-4.5 [place] 362701-05-05 08:06:00 Test Item Value Reference Range Interpretation Comments WBC X 10x3 (test code = WBC X 10x3) 11.2 3.7-10.4 [place] 362701-05-05 08:06:00 Test Item Value Reference Range Interpretation Comments RBC X 10x6 (test code = RBC X 10x6) 3.22 4.20-5.40 [place] 362701-05-05 08:06:00 Test Item Value Reference Range Interpretation Comments Hgb (test code = Hgb) 10.3 12.0-16.0 [place] 362701-05-05 08:06:00 Test Item Value Reference Range Interpretation Comments Hct (test code = Hct) 30.6 36.0-48.0 [place] 362701-05-05 08:06:00 Test Item Value Reference Range Interpretation Comments MCV (test code = MCV) 94.8 80.0-98.0 [place] 362701-05-05 08:06:00 Test Item Value Reference Range Interpretation Comments MCH (test code = MCH) 31.9 pg 27.0-31.0 [facility] HospitalQslwmwxNMBZPQUVBL2881-53-85 08:06:00 Test Item Value Reference Range Interpretation Comments MCHC (test code = MCHC) 33.6 32.0-36.0 [facility] HospitalVvtkimvJMQIPKHWUD7117-17-60 08:06:00 Test Item Value Reference Range Interpretation Comments RDW (test code = RDW) 12.7 11.5-14.5 [facility] HospitalZzeptfkOWVFVVUNZM0284-67-56 08:06:00 Test Item Value Reference Range Interpretation Comments Platelet (test code = Platelet) 179 133-450 [facility] HospitalEbgydggUHRMDWEXEY3282-67-70 08:06:00 Test Item Value Reference Range Interpretation Comments MPV (test code = MPV) 7.5 7.4-10.4 [facility] HospitalYbqjzmvYOUWRGKDED5755-80-43 08:06:00 Test Item Value Reference Range Interpretation Comments PT (test code = PT) 13.2 s 12.0-14.7 [facility] HospitalOuqvjulHMCZBEGTXS1672-67-57 08:06:00 Test Item Value Reference Range Interpretation Comments INR (test code = INR) 1.01 1 0.85-1.17 [facility] HospitalGtmwltdTUXUIIDPNE5566-73-00 08:06:00 Test Item Value Reference Range Interpretation Comments PTT (test code = PTT) 29.1 s 22.9-35.8 [facility] HospitalKsveibjITPPRJCTNV6125-20-22 08:06:00 Test Item Value Reference Range Interpretation Comments Segs (test code = Segs) 88.3 45.0-75.0 [facility] HospitalPquhvemLOLXNNKOWS3224-19-64 08:06:00 Test Item Value Reference Range Interpretation Comments Lymphocytes (test code = Lymphocytes) 7.7 20.0-40.0 [place] 362701-05-05 08:06:00 Test Item Value Reference Range Interpretation Comments Monocytes (test code = Monocytes) 3.7 2.0-12.0 [place] 362701-05-05 08:06:00 Test Item Value Reference Range Interpretation Comments Basophils (test code = 0.3 See_Comment [Aut omated message] The Basophils) system which ge nerated this result tra nsmitted reference range : <=1.0. The reference r katie was not used to int erpret this result as normal/abnormal . [facility] HospitalSmgmmxaSFUIHJDMVF3363-48-67 08:06:00 Test Item Value Reference Range Interpretation Comments Neutrophils # (test code = Neutrophils 9.9 1.5-8.1 #) [facility] HospitalYqelsdyGBBMXZVCUR5358-96-07 08:06:00 Test Item Value Reference Range Interpretation Comments Lymphocytes # (test code = Lymphocytes 0.9 1.0-5.5 #) [place] 362701-05-05 08:06:00 Test Item Value Reference Range Interpretation Comments Monocytes # (test code 0.4 See_Comment [Aut omated message] The = Monocytes #) system which generated this result tra nsmitted reference range : <=0.8. The reference r katie was not used to int erpret this result as normal/abnormal . [place] 245431-05-05 08:06:00 Test Item Value Reference Range Interpretation Comments Ca Ion WB (test code = Ca Ion WB) 1.08 1.05-1.25 [place] 245431-05-05 08:06:00 Test Item Value Reference Range Interpretation Comments Ca Norm WB (test code = Ca Norm WB) 1.12 1.05-1.25 [place] 831881-05-05 08:06:00 Test Item Value Reference Range Interpretation Comments Glucose Lvl (test code = Glucose Lvl) 112 70-99 [place] 831881-05-05 08:06:00 Test Item Value Reference Range Interpretation Comments BUN (test code = BUN) 21 7-22 [place] 831881-05-05 08:06:00 Test Item Value Reference Range Interpretation Comments Creatinine Lvl (test code = Creatinine 0.70 0.50-1.40 Lvl) [place] 831881-05-05 08:06:00 Test Item Value Reference Range Interpretation Comments Sodium Lvl (test code = Sodium Lvl) 139 135-145 [place] 831881-05-05 08:06:00 Test Item Value Reference Range Interpretation Comments Potassium Lvl (test code = Potassium 4.3 3.5-5.1 Lvl) [place] 831881-05-05 08:06:00 Test Item Value Reference Range Interpretation Comments Chloride Lvl (test code = Chloride Lvl) 105 95-109 [place] 831881-05-05 08:06:00 Test Item Value Reference Range Interpretation Comments CO2 (test code = CO2) 26 24-32 [place] 831881-05-05 08:06:00 Test Item Value Reference Range Interpretation Comments Calcium Lvl (test code = Calcium Lvl) 8.6 8.5-10.5 [place] 831881-05-05 08:06:00 Test Item Value Reference Range Interpretation Comments AGAP (test code = AGAP) 12.3 10.0-20.0 [place] 831881-05-05 08:06:00 Test Item Value Reference Range Interpretation Comments eGFR (test code = eGFR) 89 [place] 831881-05-05 08:06:00 Test Item Value Reference Range Interpretation Comments Magnesium Lvl (test code = Magnesium 2.2 1.8-2.4 Lvl) [place] 831881-05-05 08:06:00 Test Item Value Reference Range Interpretation Comments Phosphorus (test code = Phosphorus) 3.0 2.5-4.5 [place] 362701-05-05 08:06:00 Test Item Value Reference Range Interpretation Comments WBC X 10x3 (test code = WBC X 10x3) 11.2 3.7-10.4 [place] 362701-05-05 08:06:00 Test Item Value Reference Range Interpretation Comments RBC X 10x6 (test code = RBC X 10x6) 3.22 4.20-5.40 [place] 362701-05-05 08:06:00 Test Item Value Reference Range Interpretation Comments Hgb (test code = Hgb) 10.3 12.0-16.0 [place] [address]-05-05 08:06:00 Test Item Value Reference Range Interpretation Comments Hct (test code = Hct) 30.6 36.0-48.0 [place] [address]-05-05 08:06:00 Test Item Value Reference Range Interpretation Comments MCV (test code = MCV) 94.8 80.0-98.0 [place] 362701-05-05 08:06:00 Test Item Value Reference Range Interpretation Comments MCH (test code = MCH) 31.9 pg 27.0-31.0 [place] 362701-05-05 08:06:00 Test Item Value Reference Range Interpretation Comments MCHC (test code = MCHC) 33.6 32.0-36.0 [facility] HospitalFlwfewtNEZWNMLJWZ3992-66-71 08:06:00 Test Item Value Reference Range Interpretation Comments RDW (test code = RDW) 12.7 11.5-14.5 [facility] HospitalWqfaxllWBXYQKNJEO7232-03-22 08:06:00 Test Item Value Reference Range Interpretation Comments Platelet (test code = Platelet) 179 133-450 [facility] HospitalIaxrhwfRQHFKIXSCZ1513-93-56 08:06:00 Test Item Value Reference Range Interpretation Comments MPV (test code = MPV) 7.5 7.4-10.4 [facility] HospitalNwjivrvKZNPBEPJKU1127-95-81 08:06:00 Test Item Value Reference Range Interpretation Comments PT (test code = PT) 13.2 s 12.0-14.7 [facility] HospitalWwlkmoiNMCZHBZOTI3942-71-08 08:06:00 Test Item Value Reference Range Interpretation Comments INR (test code = INR) 1.01 1 0.85-1.17 [facility] HospitalLtarekqSOVOHKTXPT2579-19-84 08:06:00 Test Item Value Reference Range Interpretation Comments PTT (test code = PTT) 29.1 s 22.9-35.8 [facility] HospitalHenvkdmZDFVGRXDGS4290-56-32 08:06:00 Test Item Value Reference Range Interpretation Comments Segs (test code = Segs) 88.3 45.0-75.0 [facility] HospitalPslerklUPLFLEYQQM0323-57-64 08:06:00 Test Item Value Reference Range Interpretation Comments Lymphocytes (test code = Lymphocytes) 7.7 20.0-40.0 [facility] HospitalWwupsocDMPYQXHQDM3166-31-14 08:06:00 Test Item Value Reference Range Interpretation Comments Monocytes (test code = Monocytes) 3.7 2.0-12.0 [facility] HospitalAmuazhrUUATCUHSCC2806-02-36 08:06:00 Test Item Value Reference Range Interpretation Comments Basophils (test code = 0.3 See_Comment [Aut omated message] The Basophils) system which ge nerated this result tra nsmitted reference range : <=1.0. The reference r katie was not used to int erpret this result as normal/abnormal . [facility] HospitalFqfysltQCCFQSKQQC4153-06-74 08:06:00 Test Item Value Reference Range Interpretation Comments Neutrophils # (test code = Neutrophils 9.9 1.5-8.1 #) [place] 362701-05-05 08:06:00 Test Item Value Reference Range Interpretation Comments Lymphocytes # (test code = Lymphocytes 0.9 1.0-5.5 #) [place] 362701-05-05 08:06:00 Test Item Value Reference Range Interpretation Comments Monocytes # (test code 0.4 See_Comment [Aut omated message] The = Monocytes #) system which generated this result tra nsmitted reference range : <=0.8. The reference r katie was not used to int erpret this result as normal/abnormal . [facility]2021-05-05 08:06:00 Test Item Value Reference Range Interpretation Comments Ca Ion WB (test code = Ca Ion WB) 1.08 1.05-1.25 [place] 245431-05-05 08:06:00 Test Item Value Reference Range Interpretation Comments Ca Norm WB (test code = Ca Norm WB) 1.12 1.05-1.25 [place] 831881-05-05 08:06:00 Test Item Value Reference Range Interpretation Comments Glucose Lvl (test code = Glucose Lvl) 112 70-99 [place] 831881-05-05 08:06:00 Test Item Value Reference Range Interpretation Comments BUN (test code = BUN) 21 7-22 [place] 831881-05-05 08:06:00 Test Item Value Reference Range Interpretation Comments Creatinine Lvl (test code = Creatinine 0.70 0.50-1.40 Lvl) [facility]2021-05-05 08:06:00 Test Item Value Reference Range Interpretation Comments Sodium Lvl (test code = Sodium Lvl) 139 135-145 [place] 831881-05-05 08:06:00 Test Item Value Reference Range Interpretation Comments Potassium Lvl (test code = Potassium 4.3 3.5-5.1 Lvl) [place] 831881-05-05 08:06:00 Test Item Value Reference Range Interpretation Comments Chloride Lvl (test code = Chloride Lvl) 105 95-109 [place] 831881-05-05 08:06:00 Test Item Value Reference Range Interpretation Comments CO2 (test code = CO2) 26 24-32 [place] 831881-05-05 08:06:00 Test Item Value Reference Range Interpretation Comments Calcium Lvl (test code = Calcium Lvl) 8.6 8.5-10.5 [facility]2021-05-05 08:06:00 Test Item Value Reference Range Interpretation Comments AGAP (test code = AGAP) 12.3 10.0-20.0 [place] 831881-05-05 08:06:00 Test Item Value Reference Range Interpretation Comments eGFR (test code = eGFR) 89 [place] 831881-05-05 08:06:00 Test Item Value Reference Range Interpretation Comments Magnesium Lvl (test code = Magnesium 2.2 1.8-2.4 Lvl) [place] 831881-05-05 08:06:00 Test Item Value Reference Range Interpretation Comments Phosphorus (test code = Phosphorus) 3.0 2.5-4.5 [place] 362701-05-05 08:06:00 Test Item Value Reference Range Interpretation Comments WBC X 10x3 (test code = WBC X 10x3) 11.2 3.7-10.4 [place] 362701-05-05 08:06:00 Test Item Value Reference Range Interpretation Comments RBC X 10x6 (test code = RBC X 10x6) 3.22 4.20-5.40 [place] 362701-05-05 08:06:00 Test Item Value Reference Range Interpretation Comments Hgb (test code = Hgb) 10.3 12.0-16.0 [place] 362701-05-05 08:06:00 Test Item Value Reference Range Interpretation Comments Hct (test code = Hct) 30.6 36.0-48.0 [place] 362701-05-05 08:06:00 Test Item Value Reference Range Interpretation Comments MCV (test code = MCV) 94.8 80.0-98.0 [place] 362701-05-05 08:06:00 Test Item Value Reference Range Interpretation Comments MCH (test code = MCH) 31.9 pg 27.0-31.0 [place] 362701-05-05 08:06:00 Test Item Value Reference Range Interpretation Comments MCHC (test code = MCHC) 33.6 32.0-36.0 [place] 362701-05-05 08:06:00 Test Item Value Reference Range Interpretation Comments RDW (test code = RDW) 12.7 11.5-14.5 [facility]ep[facility]zoOAWZUOMNSL2016-13-[facility] 08:06:00 Test Item Value Reference Range Interpretation Comments Platelet (test code = Platelet) 179 133-450 [place] 362701-05-05 08:06:00 Test Item Value Reference Range Interpretation Comments MPV (test code = MPV) 7.5 7.4-10.4 [place] 362701-05-05 08:06:00 Test Item Value Reference Range Interpretation Comments PT (test code = PT) 13.2 s 12.0-14.7 [facility]LwupyjjREAOFQGGFA4326-88-57 08:06:00 Test Item Value Reference Range Interpretation Comments INR (test code = INR) 1.01 1 0.85-1.17 [place] 362701-05-05 08:06:00 Test Item Value Reference Range Interpretation Comments PTT (test code = PTT) 29.1 s 22.9-35.8 [place] 362701-05-05 08:06:00 Test Item Value Reference Range Interpretation Comments Segs (test code = Segs) 88.3 45.0-75.0 [facility] HospitalMfkkrhmJYBXUPELLM5865-65-48 08:06:00 Test Item Value Reference Range Interpretation Comments Lymphocytes (test code = Lymphocytes) 7.7 20.0-40.0 [facility] HospitalRkdxxlkSKLFWVSTWO4995-87-92 08:06:00 Test Item Value Reference Range Interpretation Comments Monocytes (test code = Monocytes) 3.7 2.0-12.0 [place] 362701-05-05 08:06:00 Test Item Value Reference Range Interpretation Comments Basophils (test code = 0.3 See_Comment [Aut omated message] The Basophils) system which ge nerated this result tra nsmitted reference range : <=1.0. The reference r katie was not used to int erpret this result as normal/abnormal . [facility] HospitalBuyhepkQKTRHPLLOQ4925-14-34 08:06:00 Test Item Value Reference Range Interpretation Comments Neutrophils # (test code = Neutrophils 9.9 1.5-8.1 #) [facility] HospitalMqvkcmmEDZPDRPRIJ9458-41-72 08:06:00 Test Item Value Reference Range Interpretation Comments Lymphocytes # (test code = Lymphocytes 0.9 1.0-5.5 #) [facility]HzjujpaIRZBAHHLCH2629-25-40 08:06:00 Test Item Value Reference Range Interpretation Comments Monocytes # (test code 0.4 See_Comment [Aut omated message] The = Monocytes #) system which generated this result tra nsmitted reference range : <=0.8. The reference r katie was not used to int erpret this result as normal/abnormal . [facility] MGORWGU9779-88-94 08:06:00 Test Item Value Reference Range Interpretation Comments Ca Ion WB (test code = Ca Ion WB) 1.08 1.05-1.25 [facility]RO[facility] YSTZXHA3933-70-28 08:06:00 Test Item Value Reference Range Interpretation Comments Ca Norm WB (test code = Ca Norm WB) 1.12 1.05-1.25 [place] 831881-05-05 08:06:00 Test Item Value Reference Range Interpretation Comments Glucose Lvl (test code = Glucose Lvl) 112 70-99 [facility]2021-05-05 08:06:00 Test Item Value Reference Range Interpretation Comments BUN (test code = BUN) 21 7-22 [facility]2021-05-05 08:06:00 Test Item Value Reference Range Interpretation Comments Creatinine Lvl (test code = Creatinine 0.70 0.50-1.40 Lvl) [facility]2021-05-05 08:06:00 Test Item Value Reference Range Interpretation Comments Sodium Lvl (test code = Sodium Lvl) 139 135-145 [facility]2021-05-05 08:06:00 Test Item Value Reference Range Interpretation Comments Potassium Lvl (test code = Potassium 4.3 3.5-5.1 Lvl) [facility]2021-05-05 08:06:00 Test Item Value Reference Range Interpretation Comments Chloride Lvl (test code = Chloride Lvl) 105 95-109 [facility]2021-05-05 08:06:00 Test Item Value Reference Range Interpretation Comments CO2 (test code = CO2) 26 24-32 [facility]2021-05-05 08:06:00 Test Item Value Reference Range Interpretation Comments Calcium Lvl (test code = Calcium Lvl) 8.6 8.5-10.5 [place] 831881-05-05 08:06:00 Test Item Value Reference Range Interpretation Comments AGAP (test code = AGAP) 12.3 10.0-20.0 [place] 831881-05-05 08:06:00 Test Item Value Reference Range Interpretation Comments eGFR (test code = eGFR) 89 [place] 831881-05-05 08:06:00 Test Item Value Reference Range Interpretation Comments Magnesium Lvl (test code = Magnesium 2.2 1.8-2.4 Lvl) [place] [address]1881-05-05 08:06:00 Test Item Value Reference Range Interpretation Comments Phosphorus (test code = Phosphorus) 3.0 2.5-4.5 [place] [address]2701-05-05 08:06:00 Test Item Value Reference Range Interpretation Comments WBC X 10x3 (test code = WBC X 10x3) 11.2 3.7-10.4 [place] 362701-05-05 08:06:00 Test Item Value Reference Range Interpretation Comments RBC X 10x6 (test code = RBC X 10x6) 3.22 4.20-5.40 [place] 362701-05-05 08:06:00 Test Item Value Reference Range Interpretation Comments Hgb (test code = Hgb) 10.3 12.0-16.0 [place] 362701-05-05 08:06:00 Test Item Value Reference Range Interpretation Comments Hct (test code = Hct) 30.6 36.0-48.0 [place] [address]2701-05-05 08:06:00 Test Item Value Reference Range Interpretation Comments MCV (test code = MCV) 94.8 80.0-98.0 [place] 362701-05-05 08:06:00 Test Item Value Reference Range Interpretation Comments MCH (test code = MCH) 31.9 pg 27.0-31.0 [place] [address]2701-05-05 08:06:00 Test Item Value Reference Range Interpretation Comments MCHC (test code = MCHC) 33.6 32.0-36.0 [place] 362701-05-05 08:06:00 Test Item Value Reference Range Interpretation Comments RDW (test code = RDW) 12.7 11.5-14.5 [place] [address]2701-05-05 08:06:00 Test Item Value Reference Range Interpretation Comments Platelet (test code = Platelet) 179 133-450 [facility] HospitalYdpovmrTFVGKLIZVE5925-68-07 08:06:00 Test Item Value Reference Range Interpretation Comments MPV (test code = MPV) 7.5 7.4-10.4 [facility] HospitalKwsdstwZLEWYRSBKO2782-50-30 08:06:00 Test Item Value Reference Range Interpretation Comments PT (test code = PT) 13.2 s 12.0-14.7 [facility] HospitalWkfwphsFKJRMDWTGJ2433-40-61 08:06:00 Test Item Value Reference Range Interpretation Comments INR (test code = INR) 1.01 1 0.85-1.17 [facility] HospitalWqowsurZCDQDBKBSF4707-52-87 08:06:00 Test Item Value Reference Range Interpretation Comments PTT (test code = PTT) 29.1 s 22.9-35.8 [facility] HospitalEzcoteqCXWLEJJEMN7987-08-37 08:06:00 Test Item Value Reference Range Interpretation Comments Segs (test code = Segs) 88.3 45.0-75.0 [facility] HospitalZgfloskZLAJXETIAH9640-21-79 08:06:00 Test Item Value Reference Range Interpretation Comments Lymphocytes (test code = Lymphocytes) 7.7 20.0-40.0 [facility] HospitalBcijuxwSXPJSLMYFT6124-18-64 08:06:00 Test Item Value Reference Range Interpretation Comments Monocytes (test code = Monocytes) 3.7 2.0-12.0 [facility] HospitalBnqmiqaNFVRWPQQOJ2766-48-72 08:06:00 Test Item Value Reference Range Interpretation Comments Basophils (test code = 0.3 See_Comment [Aut omated message] The Basophils) system which ge nerated this result tra nsmitted reference range : <=1.0. The reference r katie was not used to int erpret this result as normal/abnormal . [facility] HospitalHiaktftMMCELGFNIC7345-99-30 08:06:00 Test Item Value Reference Range Interpretation Comments Neutrophils # (test code = Neutrophils 9.9 1.5-8.1 #) [facility] HospitalAmuudryZGICVXJGAS4051-61-40 08:06:00 Test Item Value Reference Range Interpretation Comments Lymphocytes # (test code = Lymphocytes 0.9 1.0-5.5 #) [facility] HospitalFppudsfDMEQERAABB4796-99-67 08:06:00 Test Item Value Reference Range Interpretation Comments Monocytes # (test code 0.4 See_Comment [Aut omated message] The = Monocytes #) system which generated this result tra nsmitted reference range : <=0.8. The reference r katie was not used to int erpret this result as normal/abnormal . [place] 245431-05-05 08:06:00 Test Item Value Reference Range Interpretation Comments Ca Ion WB (test code = Ca Ion WB) 1.08 1.05-1.25 [place] 245431-05-05 08:06:00 Test Item Value Reference Range Interpretation Comments Ca Norm WB (test code = Ca Norm WB) 1.12 1.05-1.25 [place] 362701-05-04 17:52:00 Test Item Value Reference Range Interpretation Comments Lymphocytes # (test code = Lymphocytes 1.2 1.0-5.5 #) [facility] HospitalRrtzkjvUICXGMYXVF7189-66-27 17:52:00 Test Item Value Reference Range Interpretation Comments Monocytes # (test code 0.2 See_Comment [Aut omated message] The = Monocytes #) system which generated this result tra nsmitted reference range : <=0.8. The reference r katie was not used to int erpret this result as normal/abnormal . [facility] HospitalOywojnzAFCAEAWDAV6448-34-77 17:52:00 Test Item Value Reference Range Interpretation Comments Eosinophils # (test code 0.2 See_Comment [A utomated message] The = Eosinophils #) system whic h generated this result tra nsmitted reference range : <=0.5. The reference r katie was not used to int erpret this result as normal/abnormal . [place] [address]2701-05-04 17:52:00 Test Item Value Reference Range Interpretation Comments Basophils # (test code 0.1 See_Comment [Aut omated message] The = Basophils #) system which generated this result tra nsmitted reference range : <=0.2. The reference r katie was not used to int erpret this result as normal/abnormal . [facility] HospitalDmobmtmXJLHFRHCVX0010-63-74 17:52:00 Test Item Value Reference Range Interpretation Comments WBC X 10x3 (test code = WBC X 10x3) 6.9 3.7-10.4 [place] [address]2701-05-04 17:52:00 Test Item Value Reference Range Interpretation Comments RBC X 10x6 (test code = RBC X 10x6) 3.02 4.20-5.40 [facility] HospitalNeikpyoDNDAIPTVNG8355-79-44 17:52:00 Test Item Value Reference Range Interpretation Comments Hgb (test code = Hgb) 9.6 12.0-16.0 [facility] HospitalXupqsqwMFXISRPWTL2688-52-13 17:52:00 Test Item Value Reference Range Interpretation Comments Hct (test code = Hct) 28.6 36.0-48.0 [facility] HospitalGedqwtkOPRMYKVUDN7298-48-42 17:52:00 Test Item Value Reference Range Interpretation Comments MCV (test code = MCV) 94.8 80.0-98.0 [facility] HospitalGeekkakDTRQTTHGZJ6381-75-94 17:52:00 Test Item Value Reference Range Interpretation Comments MCH (test code = MCH) 31.9 pg 27.0-31.0 [facility] HospitalJuetyfcCZJCCACAOM8250-70-67 17:52:00 Test Item Value Reference Range Interpretation Comments MCHC (test code = MCHC) 33.7 32.0-36.0 [facility] HospitalSsplvaxOPFYCLMUKS7981-36-99 17:52:00 Test Item Value Reference Range Interpretation Comments RDW (test code = RDW) 12.6 11.5-14.5 [facility] HospitalVzmfrfgFKCTDSFHDE4520-99-09 17:52:00 Test Item Value Reference Range Interpretation Comments Platelet (test code = Platelet) 170 133-450 [facility] HospitalJehawjyBLSJRTJPEB6245-01-65 17:52:00 Test Item Value Reference Range Interpretation Comments MPV (test code = MPV) 7.8 7.4-10.4 [facility] CenterIvgttdoLTRBIQ1075-34-29 17:52:00 Test Item Value Reference Range Interpretation Comments Trig (test code = Trig) 58 [facility] CenterCepuqubSDJONU1991-34-94 17:52:00 Test Item Value Reference Range Interpretation Comments Chol (test code = Chol) 146 [facility] CenterXafwkpqPFGNVN6275-73-02 17:52:00 Test Item Value Reference Range Interpretation Comments HDL (test code = HDL) 44 [facility] CenterPnwykttXCSAVN6839-46-71 17:52:00 Test Item Value Reference Range Interpretation Comments CHD Risk (test code = CHD Risk) 3.32 1 3.90-5.80 [facility] CenterQvfzfbjGGJRDB3967-55-39 17:52:00 Test Item Value Reference Range Interpretation Comments LDL (Calculated) (test code = LDL 90 (Calculated)) [facility] CenterNdnqopsJQOQHJ9306-79-15 17:52:00 Test Item Value Reference Range Interpretation Comments VLDL (test code = VLDL) 12 1 [facility]ATH[facility] CWJDKDI7052-30-10 17:52:00 Test Item Value Reference Range Interpretation Comments Ca Ion WB (test code = Ca Ion WB) 1.03 1.05-1.25 [facility]RO[facility] PGXLPGR3088-96-93 17:52:00 Test Item Value Reference Range Interpretation Comments Ca Norm WB (test code = Ca Norm WB) 1.04 1.05-1.25 [place] [address]1881-05-04 17:52:00 Test Item Value Reference Range Interpretation Comments Magnesium Lvl (test code = Magnesium 2.1 1.8-2.4 Lvl) [facility]2021-05-04 17:52:00 Test Item Value Reference Range Interpretation Comments Phosphorus (test code = Phosphorus) 2.5 2.5-4.5 [facility]2021-05-04 17:52:00 Test Item Value Reference Range Interpretation Comments Glucose Lvl (test code = Glucose Lvl) 158 70-99 [place]1881-05-04 17:52:00 Test Item Value Reference Range Interpretation Comments BUN (test code = BUN) 26 7-22 [place] [address]-05-04 17:52:00 Test Item Value Reference Range Interpretation Comments Creatinine Lvl (test code = Creatinine 0.90 0.50-1.40 Lvl) [place]1881-05-04 17:52:00 Test Item Value Reference Range Interpretation Comments Sodium Lvl (test code = Sodium Lvl) 141 135-145 [place] 831881-05-04 17:52:00 Test Item Value Reference Range Interpretation Comments Potassium Lvl (test code = Potassium 4.1 3.5-5.1 Lvl) [facility]2021-05-04 17:52:00 Test Item Value Reference Range Interpretation Comments Chloride Lvl (test code = Chloride Lvl) 107 95-109 [place]1881-05-04 17:52:00 Test Item Value Reference Range Interpretation Comments CO2 (test code = CO2) 29 24-32 [place] 831881-05-04 17:52:00 Test Item Value Reference Range Interpretation Comments Calcium Lvl (test code = Calcium Lvl) 8.0 8.5-10.5 [place] 831881-05-04 17:52:00 Test Item Value Reference Range Interpretation Comments AGAP (test code = AGAP) 9.1 10.0-20.[address]05-04 17:52:00 Test Item Value Reference Range Interpretation Comments eGFR (test code = eGFR) 66 [place] [address]-05-04 17:52:00 Test Item Value Reference Range Interpretation Comments PT (test code = PT) 14.8 s 12.0-14.[address]05-04 17:52:00 Test Item Value Reference Range Interpretation Comments INR (test code = INR) 1.18 1 0.85-1.17 [place] [address]-05-04 17:52:00 Test Item Value Reference Range Interpretation Comments PTT (test code = PTT) 30.8 s 22.9-35.8 [place] [address]-05-04 17:52:00 Test Item Value Reference Range Interpretation Comments Fibrinogen Lvl (test code = Fibrinogen 209 230-510 Lvl) [place] 362701-05-04 17:52:00 Test Item Value Reference Range Interpretation Comments Segs (test code = Segs) 76.6 45.0-75.0 [place] [address]-05-04 17:52:00 Test Item Value Reference Range Interpretation Comments Lymphocytes (test code = Lymphocytes) 17.6 20.0-40.0 [place] [address]-05-04 17:52:00 Test Item Value Reference Range Interpretation Comments Monocytes (test code = Monocytes) 2.4 2.0-12.0 [place] [address]-05-04 17:52:00 Test Item Value Reference Range Interpretation Comments Eosinophils (test code = 2.5 See_Comment [A utomated message] The Eosinophils) system which ge nerated this result tra nsmitted reference range : <=4.0. The reference r katie was not used to int erpret this result as normal/abnormal . [place]2701-05-04 17:52:00 Test Item Value Reference Range Interpretation Comments Basophils (test code = 0.9 See_Comment [Aut omated message] The Basophils) system which ge nerated this result tra nsmitted reference range : <=1.0. The reference r katie was not used to int erpret this result as normal/abnormal . [place] [address]-05-04 17:52:00 Test Item Value Reference Range Interpretation Comments Neutrophils # (test code = Neutrophils 5.3 1.5-8.1 #) [place]2701-05-04 17:52:00 Test Item Value Reference Range Interpretation Comments Lymphocytes # (test code = Lymphocytes 1.2 1.0-5.5 #) [place]2701-05-04 17:52:00 Test Item Value Reference Range Interpretation Comments Monocytes # (test code 0.2 See_Comment [Aut omated message] The = Monocytes #) system which generated this result tra nsmitted reference range : <=0.8. The reference r katie was not used to int erpret this result as normal/abnormal . [place] 362701-05-04 17:52:00 Test Item Value Reference Range Interpretation Comments Eosinophils # (test code 0.2 See_Comment [A utomated message] The = Eosinophils #) system whic h generated this result tra nsmitted reference range : <=0.5. The reference r katie was not used to int erpret this result as normal/abnormal . [facility] HospitalLqsgarwQYDAHVGSYJ1605-24-36 17:52:00 Test Item Value Reference Range Interpretation Comments Basophils # (test code 0.1 See_Comment [Aut omated message] The = Basophils #) system which generated this result tra nsmitted reference range : <=0.2. The reference r katie was not used to int erpret this result as normal/abnormal . [facility] HospitalTkjsoxnHWCETILCIO5976-09-74 17:52:00 Test Item Value Reference Range Interpretation Comments WBC X 10x3 (test code = WBC X 10x3) 6.9 3.7-10.4 [place] 362701-05-04 17:52:00 Test Item Value Reference Range Interpretation Comments RBC X 10x6 (test code = RBC X 10x6) 3.02 4.20-5.40 [place] 362701-05-04 17:52:00 Test Item Value Reference Range Interpretation Comments Hgb (test code = Hgb) 9.6 12.0-16.0 [facility] HospitalUxdmsgrHNKBWOTMQY7511-83-74 17:52:00 Test Item Value Reference Range Interpretation Comments Hct (test code = Hct) 28.6 36.0-48.0 [facility] HospitalKybcxplIDSBQOXQJU4297-44-04 17:52:00 Test Item Value Reference Range Interpretation Comments MCV (test code = MCV) 94.8 80.0-98.0 [facility] HospitalJlrixnlMIKHYLXAMB7526-99-87 17:52:00 Test Item Value Reference Range Interpretation Comments MCH (test code = MCH) 31.9 pg 27.0-31.0 [facility] HospitalNvvfqygFKGCJNKAIY4138-44-92 17:52:00 Test Item Value Reference Range Interpretation Comments MCHC (test code = MCHC) 33.7 32.0-36.0 [facility] HospitalCritvdxNREKIEVJAF0870-92-67 17:52:00 Test Item Value Reference Range Interpretation Comments RDW (test code = RDW) 12.6 11.5-14.5 [facility] HospitalQhkaaxuXPUNBCAQVZ9456-13-52 17:52:00 Test Item Value Reference Range Interpretation Comments Platelet (test code = Platelet) 170 133-450 [facility] HospitalLfgrssgPHPOMETMIS1148-50-37 17:52:00 Test Item Value Reference Range Interpretation Comments MPV (test code = MPV) 7.8 7.4-10.4 [facility] CenterJttaabtDDOIOZ3052-65-14 17:52:00 Test Item Value Reference Range Interpretation Comments Trig (test code = Trig) 58 [facility] CenterWademumZKFBNL4792-17-54 17:52:00 Test Item Value Reference Range Interpretation Comments Chol (test code = Chol) 146 [facility] CenterPefdydlFYQCGK2040-53-00 17:52:00 Test Item Value Reference Range Interpretation Comments HDL (test code = HDL) 44 [facility] CenterUznlzukKUKLSH0479-79-70 17:52:00 Test Item Value Reference Range Interpretation Comments CHD Risk (test code = CHD Risk) 3.32 1 3.90-5.80 [facility] CenterYydoxwuMJFNBL0920-31-88 17:52:00 Test Item Value Reference Range Interpretation Comments LDL (Calculated) (test code = LDL 90 (Calculated)) [facility] CenterBsmvgijRVGRTW0643-95-98 17:52:00 Test Item Value Reference Range Interpretation Comments VLDL (test code = VLDL) 12 1 [facility]RO[facility] PCIBAEN2091-45-73 17:52:00 Test Item Value Reference Range Interpretation Comments Ca Ion WB (test code = Ca Ion WB) 1.03 1.05-1.25 [facility]ATHY[facility]ID TYDZHIX6294-71-59 17:52:00 Test Item Value Reference Range Interpretation Comments Ca Norm WB (test code = Ca Norm WB) 1.04 1.05-1.25 [place]18[place]-05-04 17:52:00 Test Item Value Reference Range Interpretation Comments Magnesium Lvl (test code = Magnesium 2.1 1.8-2.4 Lvl) [place]1881-05-04 17:52:00 Test Item Value Reference Range Interpretation Comments Phosphorus (test code = Phosphorus) 2.5 2.5-4.5 [place] 831881-05-04 17:52:00 Test Item Value Reference Range Interpretation Comments Glucose Lvl (test code = Glucose Lvl) 158 70-99 [place] 831881-05-04 17:52:00 Test Item Value Reference Range Interpretation Comments BUN (test code = BUN) 26 7-22 [place] 831881-05-04 17:52:00 Test Item Value Reference Range Interpretation Comments Creatinine Lvl (test code = Creatinine 0.90 0.50-1.40 Lvl) [place] 831881-05-04 17:52:00 Test Item Value Reference Range Interpretation Comments Sodium Lvl (test code = Sodium Lvl) 141 135-145 [place] 831881-05-04 17:52:00 Test Item Value Reference Range Interpretation Comments Potassium Lvl (test code = Potassium 4.1 3.5-5.1 Lvl) [place]18[place]-05-04 17:52:00 Test Item Value Reference Range Interpretation Comments Chloride Lvl (test code = Chloride Lvl) 107 95-109 [place] 831881-05-04 17:52:00 Test Item Value Reference Range Interpretation Comments CO2 (test code = CO2) 29 24-32 [place] 831881-05-04 17:52:00 Test Item Value Reference Range Interpretation Comments Calcium Lvl (test code = Calcium Lvl) 8.0 8.5-10.5 [place] 831881-05-04 17:52:00 Test Item Value Reference Range Interpretation Comments AGAP (test code = AGAP) 9.1 10.0-20.0 [place] 831881-05-04 17:52:00 Test Item Value Reference Range Interpretation Comments eGFR (test code = eGFR) [address]05-04 17:52:00 Test Item Value Reference Range Interpretation Comments PT (test code = PT) 14.8 s 12.0-14.[address]05-04 17:52:00 Test Item Value Reference Range Interpretation Comments INR (test code = INR) 1.18 1 0.85-1.[address]05-04 17:52:00 Test Item Value Reference Range Interpretation Comments PTT (test code = PTT) 30.8 s 22.9-35.[address]05-04 17:52:00 Test Item Value Reference Range Interpretation Comments Fibrinogen Lvl (test code = Fibrinogen 209 230-510 Lvl) [place] [address]-05-04 17:52:00 Test Item Value Reference Range Interpretation Comments Segs (test code = Segs) 76.6 45.0-75.[address]05-04 17:52:00 Test Item Value Reference Range Interpretation Comments Lymphocytes (test code = Lymphocytes) 17.6 20.0-40.0 [place] [address]-05-04 17:52:00 Test Item Value Reference Range Interpretation Comments Monocytes (test code = Monocytes) 2.4 2.0-12.[address]05-04 17:52:00 Test Item Value Reference Range Interpretation Comments Eosinophils (test code = 2.5 See_Comment [A utomated message] The Eosinophils) system which ge nerated this result tra nsmitted reference range : <=4.0. The reference r katie was not used to int erpret this result as normal/abnormal . [address]05-04 17:52:00 Test Item Value Reference Range Interpretation Comments Basophils (test code = 0.9 See_Comment [Aut omated message] The Basophils) system which ge nerated this result tra nsmitted reference range : <=1.0. The reference r katie was not used to int erpret this result as normal/abnormal . [place] [address]-05-04 17:52:00 Test Item Value Reference Range Interpretation Comments Neutrophils # (test code = Neutrophils 5.3 1.5-8.1 #) [facility]CTGTFTXWYS4659[facility]57[facility]37 17:52:00 Test Item Value Reference Range Interpretation Comments Lymphocytes # (test code = Lymphocytes 1.2 1.0-5.5 #) [place] 362701-05-04 17:52:00 Test Item Value Reference Range Interpretation Comments Monocytes # (test code 0.2 See_Comment [Aut omated message] The = Monocytes #) system which generated this result tra nsmitted reference range : <=0.8. The reference r katie was not used to int erpret this result as normal/abnormal . [place] [address]-05-04 17:52:00 Test Item Value Reference Range Interpretation Comments Eosinophils # (test code 0.2 See_Comment [A utomated message] The = Eosinophils #) system whic h generated this result tra nsmitted reference range : <=0.5. The reference r katie was not used to int erpret this result as normal/abnormal . [facility]OjkhjwqDVKFOMADDZ5027-44-10 17:52:00 Test Item Value Reference Range Interpretation Comments Basophils # (test code 0.1 See_Comment [Aut omated message] The = Basophils #) system which generated this result tra nsmitted reference range : <=0.2. The reference r katie was not used to int erpret this result as normal/abnormal . [facility]FikcemkXKBSFHHOOW6225-06-19 17:52:00 Test Item Value Reference Range Interpretation Comments WBC X 10x3 (test code = WBC X 10x3) 6.9 3.7-10.4 [place] 362701-05-04 17:52:00 Test Item Value Reference Range Interpretation Comments RBC X 10x6 (test code = RBC X 10x6) 3.02 4.20-5.40 [place] 362701-05-04 17:52:00 Test Item Value Reference Range Interpretation Comments Hgb (test code = Hgb) 9.6 12.0-16.0 [place] 362701-05-04 17:52:00 Test Item Value Reference Range Interpretation Comments Hct (test code = Hct) 28.6 36.0-48.0 [facility]JwdczjlLKSUONPMOI8337-19-02 17:52:00 Test Item Value Reference Range Interpretation Comments MCV (test code = MCV) 94.8 80.0-98.0 [facility] HospitalBknlzbpAUUVDFXFRP4473-13-72 17:52:00 Test Item Value Reference Range Interpretation Comments MCH (test code = MCH) 31.9 pg 27.0-31.0 [facility] HospitalMmxafutFRILTKMCMI7043-35-36 17:52:00 Test Item Value Reference Range Interpretation Comments MCHC (test code = MCHC) 33.7 32.0-36.0 [facility] HospitalJvqhnvcWYYUARYDQT6991-41-99 17:52:00 Test Item Value Reference Range Interpretation Comments RDW (test code = RDW) 12.6 11.5-14.5 [facility]ZejzuexYCHYUONAMG7302-57-68 17:52:00 Test Item Value Reference Range Interpretation Comments Platelet (test code = Platelet) 170 133-450 [facility] CenterGcxuyrcMAIIOPXSYS0397-79-49 17:52:00 Test Item Value Reference Range Interpretation Comments MPV (test code = MPV) 7.8 7.4-10.4 [facility] HospitalJcnjvlbFFDMSL4378-11-45 17:52:00 Test Item Value Reference Range Interpretation Comments Trig (test code = Trig) 58 [facility] HospitalUzqywswRYFYCL3018-52-24 17:52:00 Test Item Value Reference Range Interpretation Comments Chol (test code = Chol) 146 [facility] HospitalQfvyrxoDMDDPB4945-62-06 17:52:00 Test Item Value Reference Range Interpretation Comments HDL (test code = HDL) 44 [facility] HospitalXfclrppQKTMNE7581-80-96 17:52:00 Test Item Value Reference Range Interpretation Comments CHD Risk (test code = CHD Risk) 3.32 1 3.90-5.80 [facility] HospitalQfmzteqGTJTTN6449-86-04 17:52:00 Test Item Value Reference Range Interpretation Comments LDL (Calculated) (test code = LDL 90 (Calculated)) [facility] HospitalMrylpbdZFQPUU9793-45-91 17:52:00 Test Item Value Reference Range Interpretation Comments VLDL (test code = VLDL) 12 1 [facility] CenterPARATHYROID ZPQYXRK9973-52-21 17:52:00 Test Item Value Reference Range Interpretation Comments Ca Ion WB (test code = Ca Ion WB) 1.03 1.05-1.25 [facility] CenterPARATHYROID TBULQYE6882-01-31 17:52:00 Test Item Value Reference Range Interpretation Comments Ca Norm WB (test code = Ca Norm WB) 1.04 1.05-1.25 [facility] CenterCHEM KEDWP0794-64-83 17:52:00 Test Item Value Reference Range Interpretation Comments Magnesium Lvl (test code = Magnesium 2.1 1.8-2.4 Lvl) [facility]2021-05-04 17:52:00 Test Item Value Reference Range Interpretation Comments Phosphorus (test code = Phosphorus) 2.5 2.5-4.5 [facility]2021-05-04 17:52:00 Test Item Value Reference Range Interpretation Comments Glucose Lvl (test code = Glucose Lvl) 158 70-99 [facility]2021-05-04 17:52:00 Test Item Value Reference Range Interpretation Comments BUN (test code = BUN) 26 7-22 [facility]2021-05-04 17:52:00 Test Item Value Reference Range Interpretation Comments Creatinine Lvl (test code = Creatinine 0.90 0.50-1.40 Lvl) [facility]2021-05-04 17:52:00 Test Item Value Reference Range Interpretation Comments Sodium Lvl (test code = Sodium Lvl) 141 135-145 [facility]2021-05-04 17:52:00 Test Item Value Reference Range Interpretation Comments Potassium Lvl (test code = Potassium 4.1 3.5-5.1 Lvl) [facility]2021-05-04 17:52:00 Test Item Value Reference Range Interpretation Comments Chloride Lvl (test code = Chloride Lvl) 107 95-109 [facility]2021-05-04 17:52:00 Test Item Value Reference Range Interpretation Comments CO2 (test code = CO2) 29 24-32 [facility]2021-05-04 17:52:00 Test Item Value Reference Range Interpretation Comments Calcium Lvl (test code = Calcium Lvl) 8.0 8.5-10.5 [facility]2021-05-04 17:52:00 Test Item Value Reference Range Interpretation Comments AGAP (test code = AGAP) 9.1 10.0-20.0 [facility]2021-05-04 17:52:00 Test Item Value Reference Range Interpretation Comments eGFR (test code = eGFR) 66 [facility] HospitalDrmoocxBQFDFWZXDR8392-04-30 17:52:00 Test Item Value Reference Range Interpretation Comments PT (test code = PT) 14.8 s 12.0-14.7 [place] [address]-05-04 17:52:00 Test Item Value Reference Range Interpretation Comments INR (test code = INR) 1.18 1 0.85-1.17 [place] [address]-05-04 17:52:00 Test Item Value Reference Range Interpretation Comments PTT (test code = PTT) 30.8 s 22.9-35.8 [place] [address]-05-04 17:52:00 Test Item Value Reference Range Interpretation Comments Fibrinogen Lvl (test code = Fibrinogen 209 230-510 Lvl) [facility] HospitalHujprdvECXOJSNLYW7808-04-05 17:52:00 Test Item Value Reference Range Interpretation Comments Segs (test code = Segs) 76.6 45.0-75.0 [place] 362701-05-04 17:52:00 Test Item Value Reference Range Interpretation Comments Lymphocytes (test code = Lymphocytes) 17.6 20.0-40.0 [place] [address]-05-04 17:52:00 Test Item Value Reference Range Interpretation Comments Monocytes (test code = Monocytes) 2.4 2.0-12.0 [place] [address]-05-04 17:52:00 Test Item Value Reference Range Interpretation Comments Eosinophils (test code = 2.5 See_Comment [A utomated message] The Eosinophils) system which ge nerated this result tra nsmitted reference range : <=4.0. The reference r katie was not used to int erpret this result as normal/abnormal . [place] [address]2701-05-04 17:52:00 Test Item Value Reference Range Interpretation Comments Basophils (test code = 0.9 See_Comment [Aut omated message] The Basophils) system which ge nerated this result tra nsmitted reference range : <=1.0. The reference r katie was not used to int erpret this result as normal/abnormal . [place] 362701-05-04 17:52:00 Test Item Value Reference Range Interpretation Comments Neutrophils # (test code = Neutrophils 5.3 1.5-8.1 #) [facility] HospitalGtipfdwRIOXKJZOAJ0193-94-36 17:52:00 Test Item Value Reference Range Interpretation Comments Lymphocytes # (test code = Lymphocytes 1.2 1.0-5.5 #) [facility] HospitalFhppfasCCXSGDAXMF8509-21-03 17:52:00 Test Item Value Reference Range Interpretation Comments Monocytes # (test code 0.2 See_Comment [Aut omated message] The = Monocytes #) system which generated this result tra nsmitted reference range : <=0.8. The reference r katie was not used to int erpret this result as normal/abnormal . [facility] HospitalXxwzgmgNSJDRTGJYZ1683-68-77 17:52:00 Test Item Value Reference Range Interpretation Comments Eosinophils # (test code 0.2 See_Comment [A utomated message] The = Eosinophils #) system whic h generated this result tra nsmitted reference range : <=0.5. The reference r katie was not used to int erpret this result as normal/abnormal . [facility] HospitalJbgdcwjWTOYLTKBFG9185-02-90 17:52:00 Test Item Value Reference Range Interpretation Comments Basophils # (test code 0.1 See_Comment [Aut omated message] The = Basophils #) system which generated this result tra nsmitted reference range : <=0.2. The reference r katie was not used to int erpret this result as normal/abnormal . [facility] HospitalAjsitnzCBGSJIMNLX6056-50-96 17:52:00 Test Item Value Reference Range Interpretation Comments WBC X 10x3 (test code = WBC X 10x3) 6.9 3.7-10.4 [facility] HospitalEkapqnxFXRPFUHCLW4914-56-11 17:52:00 Test Item Value Reference Range Interpretation Comments RBC X 10x6 (test code = RBC X 10x6) 3.02 4.20-5.40 [place] 362701-05-04 17:52:00 Test Item Value Reference Range Interpretation Comments Hgb (test code = Hgb) 9.6 12.0-16.0 [place] [address]2701-05-04 17:52:00 Test Item Value Reference Range Interpretation Comments Hct (test code = Hct) 28.6 36.0-48.0 [place] [address]2701-05-04 17:52:00 Test Item Value Reference Range Interpretation Comments MCV (test code = MCV) 94.8 80.0-98.0 [facility]fksdZPRAZPBMTO9579[facility]68[facility] 17:52:00 Test Item Value Reference Range Interpretation Comments MCH (test code = MCH) 31.9 pg 27.0-31.0 [facility] RegionXhitkyaBBCVGMQPDL6581-68-25 17:52:00 Test Item Value Reference Range Interpretation Comments MCHC (test code = MCHC) 33.7 32.0-36.0 [facility]NfpbezlZLQAOHXBRD9948-87-02 17:52:00 Test Item Value Reference Range Interpretation Comments RDW (test code = RDW) 12.6 11.5-14.5 [facility] HospitalQthyioxCCYVZKLFQM0228-36-85 17:52:00 Test Item Value Reference Range Interpretation Comments Platelet (test code = Platelet) 170 133-450 [facility] HospitalDwtfouwEMTNQJZHYI2355-59-51 17:52:00 Test Item Value Reference Range Interpretation Comments MPV (test code = MPV) 7.8 7.4-10.4 [facility] CenterSwfgrnmCEFHXF5266-72-37 17:52:00 Test Item Value Reference Range Interpretation Comments Trig (test code = Trig) 58 [facility] CenterFpakzhwNZTUGL2872-02-44 17:52:00 Test Item Value Reference Range Interpretation Comments Chol (test code = Chol) 146 [facility] CenterWinxtnxBFZPAE0808-81-00 17:52:00 Test Item Value Reference Range Interpretation Comments HDL (test code = HDL) 44 [facility] CenterTakhkdhRQXBMO9669-56-52 17:52:00 Test Item Value Reference Range Interpretation Comments CHD Risk (test code = CHD Risk) 3.32 1 3.90-5.80 [facility] CenterXstpfsbKLFGYW8278-53-85 17:52:00 Test Item Value Reference Range Interpretation Comments LDL (Calculated) (test code = LDL 90 (Calculated)) [facility] CenterXnqirumYIEGWS3539-60-38 17:52:00 Test Item Value Reference Range Interpretation Comments VLDL (test code = VLDL) 12 1 [facility] CenterPARATHYROID BBEMLIL2948-89-49 17:52:00 Test Item Value Reference Range Interpretation Comments Ca Ion WB (test code = Ca Ion WB) 1.03 1.05-1.25 [facility] HospitalannPARATHYROID CCPLVVB6447-19-53 17:52:00 Test Item Value Reference Range Interpretation Comments Ca Norm WB (test code = Ca Norm WB) 1.04 1.05-1.25 [facility]2021-05-04 17:52:00 Test Item Value Reference Range Interpretation Comments Magnesium Lvl (test code = Magnesium 2.1 1.8-2.4 Lvl) [facility]2021-05-04 17:52:00 Test Item Value Reference Range Interpretation Comments Phosphorus (test code = Phosphorus) 2.5 2.5-4.5 [facility]2021-05-04 17:52:00 Test Item Value Reference Range Interpretation Comments Glucose Lvl (test code = Glucose Lvl) 158 70-99 [place] 831881-05-04 17:52:00 Test Item Value Reference Range Interpretation Comments BUN (test code = BUN) 26 7-22 [facility]2021-05-04 17:52:00 Test Item Value Reference Range Interpretation Comments Creatinine Lvl (test code = Creatinine 0.90 0.50-1.40 Lvl) [facility]2021-05-04 17:52:00 Test Item Value Reference Range Interpretation Comments Sodium Lvl (test code = Sodium Lvl) 141 135-145 [facility]2021-05-04 17:52:00 Test Item Value Reference Range Interpretation Comments Potassium Lvl (test code = Potassium 4.1 3.5-5.1 Lvl) [facility]2021-05-04 17:52:00 Test Item Value Reference Range Interpretation Comments Chloride Lvl (test code = Chloride Lvl) 107 95-109 [facility]2021-05-04 17:52:00 Test Item Value Reference Range Interpretation Comments CO2 (test code = CO2) 29 24-32 [facility]2021-05-04 17:52:00 Test Item Value Reference Range Interpretation Comments Calcium Lvl (test code = Calcium Lvl) 8.0 8.5-10.5 [facility]2021-05-04 17:52:00 Test Item Value Reference Range Interpretation Comments AGAP (test code = AGAP) 9.1 10.0-20.0 [place] 831881-05-04 17:52:00 Test Item Value Reference Range Interpretation Comments eGFR (test code = eGFR) 66 [place] 362701-05-04 17:52:00 Test Item Value Reference Range Interpretation Comments PT (test code = PT) 14.8 s 12.0-14.7 [place] [address]-05-04 17:52:00 Test Item Value Reference Range Interpretation Comments INR (test code = INR) 1.18 1 0.85-1.17 [place] [address]-05-04 17:52:00 Test Item Value Reference Range Interpretation Comments PTT (test code = PTT) 30.8 s 22.9-35.8 [place] [address]-05-04 17:52:00 Test Item Value Reference Range Interpretation Comments Fibrinogen Lvl (test code = Fibrinogen 209 230-510 Lvl) [place] [address]-05-04 17:52:00 Test Item Value Reference Range Interpretation Comments Segs (test code = Segs) 76.6 45.0-75.0 [place] [address]-05-04 17:52:00 Test Item Value Reference Range Interpretation Comments Lymphocytes (test code = Lymphocytes) 17.6 20.0-40.0 [place] 362701-05-04 17:52:00 Test Item Value Reference Range Interpretation Comments Monocytes (test code = Monocytes) 2.4 2.0-12.0 [place] [address]-05-04 17:52:00 Test Item Value Reference Range Interpretation Comments Eosinophils (test code = 2.5 See_Comment [A utomated message] The Eosinophils) system which ge nerated this result tra nsmitted reference range : <=4.0. The reference r katie was not used to int erpret this result as normal/abnormal . [place] 362701-05-04 17:52:00 Test Item Value Reference Range Interpretation Comments Basophils (test code = 0.9 See_Comment [Aut omated message] The Basophils) system which ge nerated this result tra nsmitted reference range : <=1.0. The reference r katie was not used to int erpret this result as normal/abnormal . [place] [address]-05-04 17:52:00 Test Item Value Reference Range Interpretation Comments Neutrophils # (test code = Neutrophils 5.3 1.5-8.1 #) [place] 362701-05-04 17:52:00 Test Item Value Reference Range Interpretation Comments Lymphocytes # (test code = Lymphocytes 1.2 1.0-5.5 #) [facility] HospitalOclcwrxDYBJHGBCKU6353-63-80 17:52:00 Test Item Value Reference Range Interpretation Comments Monocytes # (test code 0.2 See_Comment [Aut omated message] The = Monocytes #) system which generated this result tra nsmitted reference range : <=0.8. The reference r katie was not used to int erpret this result as normal/abnormal . [facility] HospitalBabcpicDIJMVZWLRX1175-60-50 17:52:00 Test Item Value Reference Range Interpretation Comments Eosinophils # (test code 0.2 See_Comment [A utomated message] The = Eosinophils #) system whic h generated this result tra nsmitted reference range : <=0.5. The reference r katie was not used to int erpret this result as normal/abnormal . [facility] HospitalLukakzgHKVOSOGPAH6248-28-85 17:52:00 Test Item Value Reference Range Interpretation Comments Basophils # (test code 0.1 See_Comment [Aut omated message] The = Basophils #) system which generated this result tra nsmitted reference range : <=0.2. The reference r katie was not used to int erpret this result as normal/abnormal . [facility] HospitalIjacfrzJBSHPADWKA8658-48-12 17:52:00 Test Item Value Reference Range Interpretation Comments WBC X 10x3 (test code = WBC X 10x3) 6.9 3.7-10.4 [facility] HospitalMcjefmhTTBESVYCPC1029-16-28 17:52:00 Test Item Value Reference Range Interpretation Comments RBC X 10x6 (test code = RBC X 10x6) 3.02 4.20-5.40 [place] 362701-05-04 17:52:00 Test Item Value Reference Range Interpretation Comments Hgb (test code = Hgb) 9.6 12.0-16.0 [place] [address]-05-04 17:52:00 Test Item Value Reference Range Interpretation Comments Hct (test code = Hct) 28.6 36.0-48.0 [place] [address]-05-04 17:52:00 Test Item Value Reference Range Interpretation Comments MCV (test code = MCV) 94.8 80.0-98.0 [place] 362701-05-04 17:52:00 Test Item Value Reference Range Interpretation Comments MCH (test code = MCH) 31.9 pg 27.0-31.0 [facility] HospitalRpibapnCVCAUGSWQW8509-80-93 17:52:00 Test Item Value Reference Range Interpretation Comments MCHC (test code = MCHC) 33.7 32.0-36.0 [facility] RqamffdOCERXABUJI7959-82-77 17:52:00 Test Item Value Reference Range Interpretation Comments RDW (test code = RDW) 12.6 11.5-14.5 [facility] GwadsfbHTFBFZRASP7121-63-43 17:52:00 Test Item Value Reference Range Interpretation Comments Platelet (test code = Platelet) 170 133-450 [facility] HospitalBfigdviFVVJQAKMUT8253-60-68 17:52:00 Test Item Value Reference Range Interpretation Comments MPV (test code = MPV) 7.8 7.4-10.4 [facility] VkobrjzCGCRLT6320-62-48 17:52:00 Test Item Value Reference Range Interpretation Comments Trig (test code = Trig) 58 [facility] OuxointCKVMSE3012-23-54 17:52:00 Test Item Value Reference Range Interpretation Comments Chol (test code = Chol) 146 [facility] ZluxqjiLNXIZB4664-93-91 17:52:00 Test Item Value Reference Range Interpretation Comments HDL (test code = HDL) 44 [facility] OmudgnkZVAZEB8804-72-22 17:52:00 Test Item Value Reference Range Interpretation Comments CHD Risk (test code = CHD Risk) 3.32 1 3.90-5.80 [facility] NqhmdkxPGSTXL9541-64-84 17:52:00 Test Item Value Reference Range Interpretation Comments LDL (Calculated) (test code = LDL 90 (Calculated)) [facility] HospitalFfkpgcuDIOIMG7940-18-21 17:52:00 Test Item Value Reference Range Interpretation Comments VLDL (test code = VLDL) 12 1 [facility] ECBUFPW7085-25-56 17:52:00 Test Item Value Reference Range Interpretation Comments Ca Ion WB (test code = Ca Ion WB) 1.03 1.05-1.25 [facility] HermannPARATHYROID QHSVPAN8589-80-55 17:52:00 Test Item Value Reference Range Interpretation Comments Ca Norm WB (test code = Ca Norm WB) 1.04 1.05-1.25 [facility] HospitalannCHEM SIKCM4142-46-35 17:52:00 Test Item Value Reference Range Interpretation Comments Magnesium Lvl (test code = Magnesium 2.1 1.8-2.4 Lvl) [facility]2021-05-04 17:52:00 Test Item Value Reference Range Interpretation Comments Phosphorus (test code = Phosphorus) 2.5 2.5-4.5 [place] 831881-05-04 17:52:00 Test Item Value Reference Range Interpretation Comments Glucose Lvl (test code = Glucose Lvl) 158 70-99 [place] 831881-05-04 17:52:00 Test Item Value Reference Range Interpretation Comments BUN (test code = BUN) 26 7-22 [facility]2021-05-04 17:52:00 Test Item Value Reference Range Interpretation Comments Creatinine Lvl (test code = Creatinine 0.90 0.50-1.40 Lvl) [facility]2021-05-04 17:52:00 Test Item Value Reference Range Interpretation Comments Sodium Lvl (test code = Sodium Lvl) 141 135-145 [facility]2021-05-04 17:52:00 Test Item Value Reference Range Interpretation Comments Potassium Lvl (test code = Potassium 4.1 3.5-5.1 Lvl) [facility]2021-05-04 17:52:00 Test Item Value Reference Range Interpretation Comments Chloride Lvl (test code = Chloride Lvl) 107 95-109 [facility]2021-05-04 17:52:00 Test Item Value Reference Range Interpretation Comments CO2 (test code = CO2) 29 24-32 [facility]2021-05-04 17:52:00 Test Item Value Reference Range Interpretation Comments Calcium Lvl (test code = Calcium Lvl) 8.0 8.5-10.5 [facility]2021-05-04 17:52:00 Test Item Value Reference Range Interpretation Comments AGAP (test code = AGAP) 9.1 10.0-20.0 [place] 831881-05-04 17:52:00 Test Item Value Reference Range Interpretation Comments eGFR (test code = eGFR) 66 [place] 362701-05-04 17:52:00 Test Item Value Reference Range Interpretation Comments PT (test code = PT) 14.8 s 12.0-14.7 [place] [address]-05-04 17:52:00 Test Item Value Reference Range Interpretation Comments INR (test code = INR) 1.18 1 0.85-1.17 [place] 362701-05-04 17:52:00 Test Item Value Reference Range Interpretation Comments PTT (test code = PTT) 30.8 s 22.9-35.8 [place] [address]-05-04 17:52:00 Test Item Value Reference Range Interpretation Comments Fibrinogen Lvl (test code = Fibrinogen 209 230-510 Lvl) [facility] HospitalNovvuuxKGGCFZKGUJ0929-54-11 17:52:00 Test Item Value Reference Range Interpretation Comments Segs (test code = Segs) 76.6 45.0-75.0 [place] [address]-05-04 17:52:00 Test Item Value Reference Range Interpretation Comments Lymphocytes (test code = Lymphocytes) 17.6 20.0-40.0 [place] 362701-05-04 17:52:00 Test Item Value Reference Range Interpretation Comments Monocytes (test code = Monocytes) 2.4 2.0-12.0 [place] 362701-05-04 17:52:00 Test Item Value Reference Range Interpretation Comments Eosinophils (test code = 2.5 See_Comment [A utomated message] The Eosinophils) system which ge nerated this result tra nsmitted reference range : <=4.0. The reference r katie was not used to int erpret this result as normal/abnormal . [facility] HospitalTuzekywVKPZALKOVE3410-23-27 17:52:00 Test Item Value Reference Range Interpretation Comments Basophils (test code = 0.9 See_Comment [Aut omated message] The Basophils) system which ge nerated this result tra nsmitted reference range : <=1.0. The reference r katie was not used to int erpret this result as normal/abnormal . [facility] HospitalQkppjboCXKLBECQYD6238-58-04 17:52:00 Test Item Value Reference Range Interpretation Comments Neutrophils # (test code = Neutrophils 5.3 1.5-8.1 #) [place] 362701-05-04 17:52:00 Test Item Value Reference Range Interpretation Comments Lymphocytes # (test code = Lymphocytes 1.2 1.0-5.5 #) [facility] HospitalRfzejcvZVJEYFSXFV0315-69-84 17:52:00 Test Item Value Reference Range Interpretation Comments Monocytes # (test code 0.2 See_Comment [Aut omated message] The = Monocytes #) system which generated this result tra nsmitted reference range : <=0.8. The reference r katie was not used to int erpret this result as normal/abnormal . [id number] 17:52:00 Test Item Value Reference Range Interpretation Comments Eosinophils # (test code 0.2 See_Comment [A utomated message] The = Eosinophils #) system whic h generated this result tra nsmitted reference range : <=0.5. The reference r katie was not used to int erpret this result as normal/abnormal . [facility] Hospit[id number] 17:52:00 Test Item Value Reference Range Interpretation Comments Basophils # (test code 0.1 See_Comment [Aut omated message] The = Basophils #) system which generated this result tra nsmitted reference range : <=0.2. The reference r katie was not used to int erpret this result as normal/abnormal . [facility] HospitalGpetdpkZFTVMXEKXK9920-61-25 17:52:00 Test Item Value Reference Range Interpretation Comments WBC X 10x3 (test code = WBC X 10x3) 6.9 3.7-10.4 [facility] HospitalWgpdsmpCCEBNWUYEO0611-76-50 17:52:00 Test Item Value Reference Range Interpretation Comments RBC X 10x6 (test code = RBC X 10x6) 3.02 4.20-5.40 [facility] HospitalBkowxfwPUYAXMUZGK2326-38-45 17:52:00 Test Item Value Reference Range Interpretation Comments Hgb (test code = Hgb) 9.6 12.0-16.0 [place] 362701-05-04 17:52:00 Test Item Value Reference Range Interpretation Comments Hct (test code = Hct) 28.6 36.0-48.0 [place] 362701-05-04 17:52:00 Test Item Value Reference Range Interpretation Comments MCV (test code = MCV) 94.8 80.0-98.0 [place] 362701-05-04 17:52:00 Test Item Value Reference Range Interpretation Comments MCH (test code = MCH) 31.9 pg 27.0-31.0 [facility] HospitalFdiskhmPEZCNHLRYL6177-05-31 17:52:00 Test Item Value Reference Range Interpretation Comments MCHC (test code = MCHC) 33.7 32.0-36.0 [facility] HospitalZndrotnKBXJWAUQOE2763-18-09 17:52:00 Test Item Value Reference Range Interpretation Comments RDW (test code = RDW) 12.6 11.5-14.5 [facility] HospitalJyedjdyBTBDYYABXG4433-41-09 17:52:00 Test Item Value Reference Range Interpretation Comments Platelet (test code = Platelet) 170 133-450 [facility] HospitalKuzlpzcQEXAYQDUWM8802-38-25 17:52:00 Test Item Value Reference Range Interpretation Comments MPV (test code = MPV) 7.8 7.4-10.4 [facility] HospitalAjuxdcmWJEHYJ2624-31-85 17:52:00 Test Item Value Reference Range Interpretation Comments Trig (test code = Trig) 58 [facility] HospitalSswczufSHBCGG0337-78-72 17:52:00 Test Item Value Reference Range Interpretation Comments Chol (test code = Chol) 146 [facility] CenterBfaofinMCXHXQ6306-98-43 17:52:00 Test Item Value Reference Range Interpretation Comments HDL (test code = HDL) 44 [facility] HospitalUmlppwdVFBLMP6935-32-03 17:52:00 Test Item Value Reference Range Interpretation Comments CHD Risk (test code = CHD Risk) 3.32 1 3.90-5.80 [facility] HospitalJnyztfzCMORVO5694-17-59 17:52:00 Test Item Value Reference Range Interpretation Comments LDL (Calculated) (test code = LDL 90 (Calculated)) [facility] HospitalEmojbtxFCFEWJ8319-22-35 17:52:00 Test Item Value Reference Range Interpretation Comments VLDL (test code = VLDL) 12 1 [facility] HospitalannPARATHYROID [id number] 17:52:00 Test Item Value Reference Range Interpretation Comments Ca Ion WB (test code = Ca Ion WB) 1.03 1.05-1.25 [facility] HospitalannPARATHYROID [id number] 17:52:00 Test Item Value Reference Range Interpretation Comments Ca Norm WB (test code = Ca Norm WB) 1.04 1.05-1.25 [facility] HospitalannCHEM [id number] 17:52:00 Test Item Value Reference Range Interpretation Comments Magnesium Lvl (test code = Magnesium 2.1 1.8-2.4 Lvl) [facility] HospitalannPrinceton Power System,[employer] [id number] 17:52:00 Test Item Value Reference Range Interpretation Comments Phosphorus (test code = Phosphorus) 2.5 2.5-4.5 [place] 831881-05-04 17:52:00 Test Item Value Reference Range Interpretation Comments Glucose Lvl (test code = Glucose Lvl) 158 70-99 [place] [address]-05-04 17:52:00 Test Item Value Reference Range Interpretation Comments BUN (test code = BUN) 26 7-22 [place] 831881-05-04 17:52:00 Test Item Value Reference Range Interpretation Comments Creatinine Lvl (test code = Creatinine 0.90 0.50-1.40 Lvl) [place] 831881-05-04 17:52:00 Test Item Value Reference Range Interpretation Comments Sodium Lvl (test code = Sodium Lvl) 141 135-145 [place] 831881-05-04 17:52:00 Test Item Value Reference Range Interpretation Comments Potassium Lvl (test code = Potassium 4.1 3.5-5.1 Lvl) [place] 831881-05-04 17:52:00 Test Item Value Reference Range Interpretation Comments Chloride Lvl (test code = Chloride Lvl) 107 95-109 [place] 831881-05-04 17:52:00 Test Item Value Reference Range Interpretation Comments CO2 (test code = CO2) 29 24-32 [place] 831881-05-04 17:52:00 Test Item Value Reference Range Interpretation Comments Calcium Lvl (test code = Calcium Lvl) 8.0 8.5-10.5 [place] 831881-05-04 17:52:00 Test Item Value Reference Range Interpretation Comments AGAP (test code = AGAP) 9.1 10.0-20.0 [place] 831881-05-04 17:52:00 Test Item Value Reference Range Interpretation Comments eGFR (test code = eGFR) 66 [place] 362701-05-04 17:52:00 Test Item Value Reference Range Interpretation Comments PT (test code = PT) 14.8 s 12.0-14.7 [place] [address]-05-04 17:52:00 Test Item Value Reference Range Interpretation Comments INR (test code = INR) 1.18 1 0.85-1.17 [place] [address]-05-04 17:52:00 Test Item Value Reference Range Interpretation Comments PTT (test code = PTT) 30.8 s 22.9-35.8 [place] [address]-05-04 17:52:00 Test Item Value Reference Range Interpretation Comments Fibrinogen Lvl (test code = Fibrinogen 209 230-510 Lvl) [place] 362701-05-04 17:52:00 Test Item Value Reference Range Interpretation Comments Segs (test code = Segs) 76.6 45.0-75.0 [place] [address]-05-04 17:52:00 Test Item Value Reference Range Interpretation Comments Lymphocytes (test code = Lymphocytes) 17.6 20.0-40.0 [place] [address]-05-04 17:52:00 Test Item Value Reference Range Interpretation Comments Monocytes (test code = Monocytes) 2.4 2.0-12.0 [place] [address]-05-04 17:52:00 Test Item Value Reference Range Interpretation Comments Eosinophils (test code = 2.5 See_Comment [A utomated message] The Eosinophils) system which ge nerated this result tra nsmitted reference range : <=4.0. The reference r katie was not used to int erpret this result as normal/abnormal . [place] [address]-05-04 17:52:00 Test Item Value Reference Range Interpretation Comments Basophils (test code = 0.9 See_Comment [Aut omated message] The Basophils) system which ge nerated this result tra nsmitted reference range : <=1.0. The reference r katie was not used to int erpret this result as normal/abnormal . [facility] HospitalFocdqbsJSKHKDHHXO9855-21-98 17:52:00 Test Item Value Reference Range Interpretation Comments Neutrophils # (test code = Neutrophils 5.3 1.5-8.1 #) [facility] CenterJEAN CARLOS:SUSC:PT:ISOLATE:ORDQN:[id number] 19:50:00 Test Item Value Reference Range Interpretation Comments Culture: Urine (test >100,000 CFU/mL code = Culture: Escherichia coli Urine) [facility] CenterJE[facility] CARLOS:SUSC:PT:ISOLATE:ORDQN:[id number] 19:50:00 Test Item Value Reference Range Interpretation Comments Escherichia coli (test code Escherichia coli = Escherichia coli) [facility]: [id number] 19:50:00 Test Item Value Reference Range Interpretation Comments Culture: Urine (test >100,000 CFU/mL code = Culture: Escherichia coli , Urine) Sensitivity Pending [facility]:SUSC:PT:ISOLATE:ORDQN:[id number] 19:50:00 Test Item Value Reference Range Interpretation Comments Culture: Urine (test >100,000 CFU/mL code = Culture: Escherichia coli Urine) [facility]:SUSC:PT:ISOLATE:ORDQN:[id number] 19:50:00 Test Item Value Reference Range Interpretation Comments Escherichia coli (test code Escherichia coli = Escherichia coli) [facility]: [id number] 19:50:00 Test Item Value Reference Range Interpretation Comments Culture: Urine (test >100,000 CFU/mL code = Culture: Escherichia coli , Urine) Sensitivity Pending [facility]:SUSC:PT:ISOLATE:ORDQN:[id number] 19:50:00 Test Item Value Reference Range Interpretation Comments Culture: Urine (test >100,000 CFU/mL code = Culture: Escherichia coli Urine) [facility]:SUSC:PT:ISOLATE:ORDQN:[id number] 19:50:00 Test Item Value Reference Range Interpretation Comments Escherichia coli (test code Escherichia coli = Escherichia coli) [facility]: [id number] 19:50:00 Test Item Value Reference Range Interpretation Comments Culture: Urine (test >100,000 CFU/mL code = Culture: Escherichia coli , Urine) Sensitivity Pending [facility]:SUSC:PT:ISOLATE:ORDQN:[id number] 19:50:00 Test Item Value Reference Range Interpretation Comments Culture: Urine (test >100,000 CFU/mL code = Culture: Escherichia coli Urine) [facility]:SUSC:PT:ISOLATE:ORDQN:[id number] 19:50:00 Test Item Value Reference Range Interpretation Comments Escherichia coli (test code Escherichia coli = Escherichia coli) [facility]: [id number] 19:50:00 Test Item Value Reference Range Interpretation Comments Culture: Urine (test >100,000 CFU/mL code = Culture: Escherichia coli , Urine) Sensitivity Pending [facility]:SUSC:PT:ISOLATE:ORDQN:[id number] 19:50:00 Test Item Value Reference Range Interpretation Comments Culture: Urine (test >100,000 CFU/mL code = Culture: Escherichia coli Urine) [facility]:SUSC:PT:ISOLATE:ORDQN:[id number] 19:50:00 Test Item Value Reference Range Interpretation Comments Escherichia coli (test code Escherichia coli = Escherichia coli) [facility]: [id number] 19:50:00 Test Item Value Reference Range Interpretation Comments Culture: Urine (test >100,000 CFU/mL code = Culture: Escherichia coli , Urine) Sensitivity Pending [facility]:SUSC:PT:ISOLATE:ORDQN:[id number] 19:50:00 Test Item Value Reference Range Interpretation Comments Culture: Urine (test >100,000 CFU/mL code = Culture: Escherichia coli Urine) [facility]:SUSC:PT:ISOLATE:ORDQN:[id number] 19:50:00 Test Item Value Reference Range Interpretation Comments Escherichia coli (test code Escherichia coli = Escherichia coli) [facility]: [id number] 19:50:00 Test Item Value Reference Range Interpretation Comments Culture: Urine (test >100,000 CFU/mL code = Culture: Escherichia coli , Urine) Sensitivity Pending [facility] CenterBACTERIAL - [id number] 18:18:00 Test Item Value Reference Range Interpretation Comments MRSA by PCR (test Negative (10/24/20 1:18 code = MRSA by PCR) PM) [facility] [id number] 18:18:00 Test Item Value Reference Range Interpretation Comments ABO/Rh (test code = ABO/Rh) A [facility] [id number] 18:18:00 Test Item Value Reference Range Interpretation Comments Antibody Scrn (test Negative (10/24/20 1:18 code = Antibody Scrn) PM) [facility] [id number] 18:18:00 Test Item Value Reference Range Interpretation Comments Coronavirus (COVID-19) Not Detected (10/24/20 LUIZ (test code = 1:18 PM) Coronavirus (COVID-19) LUIZ) [facility] [id number] 18:18:00 Test Item Value Reference Range Interpretation Comments MRSA by PCR (test Negative (10/24/20 1:18 code = MRSA by PCR) PM) [facility] [id number] 18:18:00 Test Item Value Reference Range Interpretation Comments ABO/Rh (test code = ABO/Rh) A POS [facility] [id number] 18:18:00 Test Item Value Reference Range Interpretation Comments Antibody Scrn (test Negative (10/24/20 1:18 code = Antibody Scrn) PM) [id number] 18:18:00 Test Item Value Reference Range Interpretation Comments Coronavirus (COVID-19) Not Detected (10/24/20 LUIZ (test code = 1:18 PM) Coronavirus (COVID-19) LUIZ) [facility] [id number] 18:18:00 Test Item Value Reference Range Interpretation Comments MRSA by PCR (test Negative (10/24/20 1:18 code = MRSA by PCR) PM) [facility] [id number] 18:18:00 Test Item Value Reference Range Interpretation Comments ABO/Rh (test code = ABO/Rh) A POS [facility] [id number] 18:18:00 Test Item Value Reference Range Interpretation Comments Antibody Scrn (test Negative (10/24/20 1:18 code = Antibody Scrn) PM) [facility] [id number] 18:18:00 Test Item Value Reference Range Interpretation Comments Coronavirus (COVID-19) Not Detected (10/24/20 LUIZ (test code = 1:18 PM) Coronavirus (COVID-19) LUIZ) [facility] [id number] 18:18:00 Test Item Value Reference Range Interpretation Comments MRSA by PCR (test Negative (10/24/20 1:18 code = MRSA by PCR) PM) [facility] [id number] 18:18:00 Test Item Value Reference Range Interpretation Comments ABO/Rh (test code = ABO/Rh) A POS [facility] [id number] 18:18:00 Test Item Value Reference Range Interpretation Comments Antibody Scrn (test Negative (10/24/20 1:18 code = Antibody Scrn) PM) [facility] [id number] 18:18:00 Test Item Value Reference Range Interpretation Comments Coronavirus (COVID-19) Not Detected (10/24/20 LUIZ (test code = 1:18 PM) Coronavirus (COVID-19) LUIZ) [facility] [id number] 18:18:00 Test Item Value Reference Range Interpretation Comments MRSA by PCR (test Negative (10/24/20 1:18 code = MRSA by PCR) PM) [facility] [id number] 18:18:00 Test Item Value Reference Range Interpretation Comments ABO/Rh (test code = ABO/Rh) A [facility] [id number] 18:18:00 Test Item Value Reference Range Interpretation Comments Antibody Scrn (test Negative (10/24/20 1:18 code = Antibody Scrn) PM) [facility] [id number] 18:18:00 Test Item Value Reference Range Interpretation Comments Coronavirus (COVID-19) Not Detected (10/24/20 LUIZ (test code = 1:18 PM) Coronavirus (COVID-19) LUIZ) [facility] [id number] 18:18:00 Test Item Value Reference Range Interpretation Comments MRSA by PCR (test Negative (10/24/20 1:18 code = MRSA by PCR) PM) [facility] [id number] 18:18:00 Test Item Value Reference Range Interpretation Comments ABO/Rh (test code = ABO/Rh) A [facility] [id number] 18:18:00 Test Item Value Reference Range Interpretation Comments Antibody Scrn (test Negative (10/24/20 1:18 code = Antibody Scrn) PM) [facility] [id number] 18:18:00 Test Item Value Reference Range Interpretation Comments Coronavirus (COVID-19) Not Detected (4/30/21 LUIZ (test code = 1:18 PM) Coronavirus (COVID-19) LUIZ) [facility] BANK [id number] 17:47:00 Test Item Value Reference Range Interpretation Comments RBC product (test code Product available = RBC product) (10/24/20 12:47 PM) [facility]2021-04-30 17:47:00 Test Item Value Reference Range Interpretation Comments Glucose Lvl (test code = Glucose Lvl) 110 70-99 [facility]2021-04-30 17:47:00 Test Item Value Reference Range Interpretation Comments BUN (test code = BUN) 42 7-22 [facility]2021-04-30 17:47:00 Test Item Value Reference Range Interpretation Comments Creatinine Lvl (test code = Creatinine 1.00 0.50-1.40 Lvl) [facility]2021-04-30 17:47:00 Test Item Value Reference Range Interpretation Comments Sodium Lvl (test code = Sodium Lvl) 139 135-145 [facility]2021-04-30 17:47:00 Test Item Value Reference Range Interpretation Comments Potassium Lvl (test code = Potassium 4.2 3.5-5.1 Lvl) [facility]2021-04-30 17:47:00 Test Item Value Reference Range Interpretation Comments Chloride Lvl (test code = Chloride Lvl) 103 95-109 [facility]2021-04-30 17:47:00 Test Item Value Reference Range Interpretation Comments CO2 (test code = CO2) 28 24-32 [facility]2021-04-30 17:47:00 Test Item Value Reference Range Interpretation Comments Calcium Lvl (test code = Calcium Lvl) 9.6 8.5-10.5 [facility]2021-04-30 17:47:00 Test Item Value Reference Range Interpretation Comments AGAP (test code = AGAP) 12.2 10.0-20.0 [facility]2021-04-30 17:47:00 Test Item Value Reference Range Interpretation Comments eGFR (test code = eGFR) 58 [facility] [id number] 17:47:00 Test Item Value Reference Range Interpretation Comments Segs (test code = Segs) 61.5 45.0-75.0 [facility] HospitalCkcumcmJLMEIAORUL5423-17-87 17:47:00 Test Item Value Reference Range Interpretation Comments Lymphocytes (test code = Lymphocytes) 26.7 20.0-40.0 [place] 362701-04-30 17:47:00 Test Item Value Reference Range Interpretation Comments Monocytes (test code = Monocytes) 7.3 2.0-12.0 [place] 362701-04-30 17:47:00 Test Item Value Reference Range Interpretation Comments Eosinophils (test code = 3.1 See_Comment [A utomated message] The Eosinophils) system which ge nerated this result tra nsmitted reference range : <=4.0. The reference r katie was not used to int erpret this result as normal/abnormal . [place] 362701-04-30 17:47:00 Test Item Value Reference Range Interpretation Comments Basophils (test code = 1.4 See_Comment [Aut omated message] The Basophils) system which ge nerated this result tra nsmitted reference range : <=1.0. The reference r katie was not used to int erpret this result as normal/abnormal . [facility] Hos[id number] 17:47:00 Test Item Value Reference Range Interpretation Comments Neutrophils # (test code = Neutrophils 4.1 1.5-8.1 #) [place] 362701-04-30 17:47:00 Test Item Value Reference Range Interpretation Comments Lymphocytes # (test code = Lymphocytes 1.8 1.0-5.5 #) [place] 362701-04-30 17:47:00 Test Item Value Reference Range Interpretation Comments Monocytes # (test code 0.5 See_Comment [Aut omated message] The = Monocytes #) system which generated this result tra nsmitted reference range : <=0.8. The reference r katie was not used to int erpret this result as normal/abnormal . [place] [address]-04-30 17:47:00 Test Item Value Reference Range Interpretation Comments Eosinophils # (test code 0.2 See_Comment [A utomated message] The = Eosinophils #) system whic h generated this result tra nsmitted reference range : <=0.5. The reference r katie was not used to int erpret this result as normal/abnormal . [place] 362701-04-30 17:47:00 Test Item Value Reference Range Interpretation Comments Basophils # (test code 0.1 See_Comment [Aut omated message] The = Basophils #) system which generated this result tra nsmitted reference range : <=0.2. The reference r katie was not used to int erpret this result as normal/abnormal . [facility] H[id number] 17:47:00 Test Item Value Reference Range Interpretation Comments WBC X 10x3 (test code = WBC X 10x3) 6.6 3.7-10.4 [facility] H[id number] 17:47:00 Test Item Value Reference Range Interpretation Comments RBC X 10x6 (test code = RBC X 10x6) 3.46 4.20-5.40 [place] 362701-04-30 17:47:00 Test Item Value Reference Range Interpretation Comments Hgb (test code = Hgb) 11.0 12.0-16.0 [facility] Hos[id number] 17:47:00 Test Item Value Reference Range Interpretation Comments Hct (test code = Hct) 32.7 36.0-48.0 [facility] HospitalReogcvuLUQMNMZRQL3078-38-84 17:47:00 Test Item Value Reference Range Interpretation Comments MCV (test code = MCV) 94.6 80.0-98.0 [facility] HospitalJcykzmeDSMPLAPPKO4030-75-39 17:47:00 Test Item Value Reference Range Interpretation Comments MCH (test code = MCH) 31.8 pg 27.0-31.0 [facility] HospitalDrmsulgXDOFXUAANL3034-06-47 17:47:00 Test Item Value Reference Range Interpretation Comments MCHC (test code = MCHC) 33.7 32.0-36.0 [facility] HospitalQrqyxbzCDTCXXAANA2669-40-30 17:47:00 Test Item Value Reference Range Interpretation Comments RDW (test code = RDW) 12.4 11.5-14.5 [place] 362701-04-30 17:47:00 Test Item Value Reference Range Interpretation Comments Platelet (test code = Platelet) 201 133-450 [facility] HospitalWfqzkyyXAJXWEWBOH9564-23-58 17:47:00 Test Item Value Reference Range Interpretation Comments MPV (test code = MPV) 7.9 7.4-10.4 [facility] HospitalJkgxqruXNBWEEBWTC0723-37-10 17:47:00 Test Item Value Reference Range Interpretation Comments PT (test code = PT) 13.5 s 12.0-14.7 [facility] HospitalNsyectwPUQMEHAUVX9502-91-99 17:47:00 Test Item Value Reference Range Interpretation Comments INR (test code = INR) 1.04 1 0.85-1.17 [facility] HospitalRjcozvyOTYQYULOSI2142-16-80 17:47:00 Test Item Value Reference Range Interpretation Comments PTT (test code = PTT) 27.3 s 22.9-35.8 [facility] AND [id number] 17:47:00 Test Item Value Reference Range Interpretation Comments UA Turbidity (test code Slight *ABN*(10/24/20 = UA Turbidity) 12:47 PM) [facility] AND [id number] 17:47:00 Test Item Value Reference Range Interpretation Comments UA Spec Grav (test code = UA Spec 1.012 1 Grav) [facility] AND [id number] 17:47:00 Test Item Value Reference Range Interpretation Comments UA pH (test code = UA pH) 6.0 1 5.0-8.0 [facility] AND [id number] 17:47:00 Test Item Value Reference Range Interpretation Comments UA Protein (test code = UA Negative mg/dL Protein) [facility] AND [id number] 17:47:00 Test Item Value Reference Range Interpretation Comments UA Glucose (test code = UA Negative mg/dL Glucose) [facility] AND [id number] 17:47:00 Test Item Value Reference Range Interpretation Comments UA Ketones (test code = UA Negative mg/dL Ketones) [facility] AND [id number] 17:47:00 Test Item Value Reference Range Interpretation Comments UA Bili (test code = Negative *NA*(10/24/20 UA Bili) 12:47 PM) [facility] AND [id number] 17:47:00 Test Item Value Reference Range Interpretation Comments UA Blood (test code = Negative (10/24/20 12:47 UA Blood) PM) [facility] AND [id number] 17:47:00 Test Item Value Reference Range Interpretation Comments UA Nitrite (test code Positive *ABN*(10/24/20 = UA Nitrite) 12:47 PM) [facility] AND [id number] 17:47:00 Test Item Value Reference Range Interpretation Comments UA Leuk Est (test code Large *ABN*(10/24/20 = UA Leuk Est) 12:47 PM) [facility] AND [id number] 17:47:00 Test Item Value Reference Range Interpretation Comments UA Sq Epi (test code = UA Sq Occasional /LPF Epi) [facility] AND [id number] 17:47:00 Test Item Value Reference Range Interpretation Comments UA WBC (test code = 70 See_Comment [Automa matteo message] The UA WBC) system which ge nerated this result transmit matteo reference range : <=5. The reference range was not used to interpr et this result as miesha l/abnormal. [facility] AND [id number] 17:47:00 Test Item Value Reference Range Interpretation Comments UA RBC (test code = 1 See_Comment [Automa matteo message] The UA RBC) system which ge nerated this result transmit matteo reference range : <=2. The reference range was not used to interpr et this result as miesha l/abnormal. [facility] AND [id number] 17:47:00 Test Item Value Reference Range Interpretation Comments UA Bacteria (test code = UA Many /HPF Bacteria) [facility] AND [id number] 17:47:00 Test Item Value Reference Range Interpretation Comments UA Color (test code = UA Color) Ltyellow [facility] AND [id number] 17:47:00 Test Item Value Reference Range Interpretation Comments UA Urobilinogen (test code = UA no gt 0.1-1.0 Urobilinogen) [facility] [id number] 17:47:00 Test Item Value Reference Range Interpretation Comments RBC product (test code Product available = RBC product) (10/24/20 12:47 PM) [facility] [id number] 17:47:00 Test Item Value Reference Range Interpretation Comments Glucose Lvl (test code = Glucose Lvl) 110 70-99 [facility] [id number] 17:47:00 Test Item Value Reference Range Interpretation Comments BUN (test code = BUN) 42 7-22 [facility] [id number] 17:47:00 Test Item Value Reference Range Interpretation Comments Creatinine Lvl (test code = Creatinine 1.00 0.50-1.40 Lvl) [place] 831881-04-30 17:47:00 Test Item Value Reference Range Interpretation Comments Sodium Lvl (test code = Sodium Lvl) 139 135-145 [place] 831881-04-30 17:47:00 Test Item Value Reference Range Interpretation Comments Potassium Lvl (test code = Potassium 4.2 3.5-5.1 Lvl) [place] 831881-04-30 17:47:00 Test Item Value Reference Range Interpretation Comments Chloride Lvl (test code = Chloride Lvl) 103 95-109 [place] 831881-04-30 17:47:00 Test Item Value Reference Range Interpretation Comments CO2 (test code = CO2) 28 24-32 [place] 831881-04-30 17:47:00 Test Item Value Reference Range Interpretation Comments Calcium Lvl (test code = Calcium Lvl) 9.6 8.5-10.5 [place] 831881-04-30 17:47:00 Test Item Value Reference Range Interpretation Comments AGAP (test code = AGAP) 12.2 10.0-20.0 [place] 831881-04-30 17:47:00 Test Item Value Reference Range Interpretation Comments eGFR (test code = eGFR) 58 [place] 362701-04-30 17:47:00 Test Item Value Reference Range Interpretation Comments Segs (test code = Segs) 61.5 45.0-75.0 [place] 362701-04-30 17:47:00 Test Item Value Reference Range Interpretation Comments Lymphocytes (test code = Lymphocytes) 26.7 20.0-40.0 [place] [address]-04-30 17:47:00 Test Item Value Reference Range Interpretation Comments Monocytes (test code = Monocytes) 7.3 2.0-12.0 [place] [address]-04-30 17:47:00 Test Item Value Reference Range Interpretation Comments Eosinophils (test code = 3.1 See_Comment [A utomated message] The Eosinophils) system which ge nerated this result tra nsmitted reference range : <=4.0. The reference r katie was not used to int erpret this result as normal/abnormal . [address]04-30 17:47:00 Test Item Value Reference Range Interpretation Comments Basophils (test code = 1.4 See_Comment [Aut omated message] The Basophils) system which ge nerated this result tra nsmitted reference range : <=1.0. The reference r katie was not used to int erpret this result as normal/abnormal . [id number] 17:47:00 Test Item Value Reference Range Interpretation Comments Neutrophils # (test code = Neutrophils 4.1 1.5-8.1 #) [facility] HospitalEonofbjBCRXNRXLYD7250-32-50 17:47:00 Test Item Value Reference Range Interpretation Comments Lymphocytes # (test code = Lymphocytes 1.8 1.0-5.5 #) [facility] HospitalXqqxaekXXPWDVWZRU1194-38-66 17:47:00 Test Item Value Reference Range Interpretation Comments Monocytes # (test code 0.5 See_Comment [Aut omated message] The = Monocytes #) system which generated this result tra nsmitted reference range : <=0.8. The reference r katie was not used to int erpret this result as normal/abnormal . [facility] HospitalAubwfrnXKSKRKQCAJ2073-75-28 17:47:00 Test Item Value Reference Range Interpretation Comments Eosinophils # (test code 0.2 See_Comment [A utomated message] The = Eosinophils #) system whic h generated this result tra nsmitted reference range : <=0.5. The reference r katie was not used to int erpret this result as normal/abnormal . [facility] HospitalWxvtdmwMBNGXHMMOC8331-62-65 17:47:00 Test Item Value Reference Range Interpretation Comments Basophils # (test code 0.1 See_Comment [Aut omated message] The = Basophils #) system which generated this result tra nsmitted reference range : <=0.2. The reference r katie was not used to int erpret this result as normal/abnormal . [facility] HospitalQabjufuYGTFHTAXQF3289-68-85 17:47:00 Test Item Value Reference Range Interpretation Comments WBC X 10x3 (test code = WBC X 10x3) 6.6 3.7-10.4 [place] 362701-04-30 17:47:00 Test Item Value Reference Range Interpretation Comments RBC X 10x6 (test code = RBC X 10x6) 3.46 4.20-5.40 [place] 362701-04-30 17:47:00 Test Item Value Reference Range Interpretation Comments Hgb (test code = Hgb) 11.0 12.0-16.0 [facility] HospitalYdwnjmtIDRPXWJMUG8017-41-04 17:47:00 Test Item Value Reference Range Interpretation Comments Hct (test code = Hct) 32.7 36.0-48.0 [facility] HospitalCfzakkqHKPAMKWTAV3101-49-18 17:47:00 Test Item Value Reference Range Interpretation Comments MCV (test code = MCV) 94.6 80.0-98.0 [facility] HospitalTkqupxrPDBFONDONL8915-87-89 17:47:00 Test Item Value Reference Range Interpretation Comments MCH (test code = MCH) 31.8 pg 27.0-31.0 [facility] HospitalPcnvkwtIZSSXAQWEW6387-44-30 17:47:00 Test Item Value Reference Range Interpretation Comments MCHC (test code = MCHC) 33.7 32.0-36.0 [facility] HospitalTdbbkvpOBFEKMPTZG8877-28-04 17:47:00 Test Item Value Reference Range Interpretation Comments RDW (test code = RDW) 12.4 11.5-14.5 [facility] HospitalLteyqlhHAMZRHWTNT1532-21-64 17:47:00 Test Item Value Reference Range Interpretation Comments Platelet (test code = Platelet) 201 133-450 [facility] HospitalNgvyvdvSCFQPFJVUT1162-78-86 17:47:00 Test Item Value Reference Range Interpretation Comments MPV (test code = MPV) 7.9 7.4-10.4 [facility] HospitalYaienkrUKEVSYIRXU7856-84-20 17:47:00 Test Item Value Reference Range Interpretation Comments PT (test code = PT) 13.5 s 12.0-14.7 [facility] HospitalXxdlgncADJJFPJUVG3217-76-68 17:47:00 Test Item Value Reference Range Interpretation Comments INR (test code = INR) 1.04 1 0.85-1.17 [facility] HospitalQqywxtzLMTVSQAJZW0532-63-61 17:47:00 Test Item Value Reference Range Interpretation Comments PTT (test code = PTT) 27.3 s 22.9-35.8 [facility]2021-04-30 17:47:00 Test Item Value Reference Range Interpretation Comments UA Turbidity (test code Slight *ABN*(10/24/20 = UA Turbidity) 12:47 PM) [facility] [id number] 17:47:00 Test Item Value Reference Range Interpretation Comments UA Spec Grav (test code = UA Spec 1.012 1 Grav) [facility] AND [id number] 17:47:00 Test Item Value Reference Range Interpretation Comments UA pH (test code = UA pH) 6.0 1 5.0-8.0 [facility] AND [id number] 17:47:00 Test Item Value Reference Range Interpretation Comments UA Protein (test code = UA Negative mg/dL Protein) [facility] AND [id number] 17:47:00 Test Item Value Reference Range Interpretation Comments UA Glucose (test code = UA Negative mg/dL Glucose) [facility] AND [id number] 17:47:00 Test Item Value Reference Range Interpretation Comments UA Ketones (test code = UA Negative mg/dL Ketones) [facility] AND [id number] 17:47:00 Test Item Value Reference Range Interpretation Comments UA Bili (test code = Negative *NA*(10/24/20 UA Bili) 12:47 PM) [facility] AND [id number] 17:47:00 Test Item Value Reference Range Interpretation Comments UA Blood (test code = Negative (10/24/20 12:47 UA Blood) PM) [facility] AND [id number] 17:47:00 Test Item Value Reference Range Interpretation Comments UA Nitrite (test code Positive *ABN*(10/24/20 = UA Nitrite) 12:47 PM) [facility] AND [id number] 17:47:00 Test Item Value Reference Range Interpretation Comments UA Leuk Est (test code Large *ABN*(10/24/20 = UA Leuk Est) 12:47 PM) [facility] AND [id number] 17:47:00 Test Item Value Reference Range Interpretation Comments UA Sq Epi (test code = UA Sq Occasional /LPF Epi) [facility] AND [id number] 17:47:00 Test Item Value Reference Range Interpretation Comments UA WBC (test code = 70 See_Comment [Automa matteo message] The UA WBC) system which ge nerated this result transmit matteo reference range : <=5. The reference range was not used to interpr et this result as miesha l/abnormal. [facility] AND [id number] 17:47:00 Test Item Value Reference Range Interpretation Comments UA RBC (test code = 1 See_Comment [Automa matteo message] The UA RBC) system which ge nerated this result transmit matteo reference range : <=2. The reference range was not used to interpr et this result as miesha l/abnormal. [facility] AND [id number] 17:47:00 Test Item Value Reference Range Interpretation Comments UA Bacteria (test code = UA Many /HPF Bacteria) [facility] AND [id number] 17:47:00 Test Item Value Reference Range Interpretation Comments UA Color (test code = UA Color) Ltyellow [facility] AND [id number] 17:47:00 Test Item Value Reference Range Interpretation Comments UA Urobilinogen (test code = UA no gt 0.1-1.0 Urobilinogen) [facility] [id number] 17:47:00 Test Item Value Reference Range Interpretation Comments RBC product (test code Product available = RBC product) (10/24/20 12:47 PM) [facility] [id number] 17:47:00 Test Item Value Reference Range Interpretation Comments Glucose Lvl (test code = Glucose Lvl) 110 70-99 [facility] [id number] 17:47:00 Test Item Value Reference Range Interpretation Comments BUN (test code = BUN) 42 7-22 [facility] [id number] 17:47:00 Test Item Value Reference Range Interpretation Comments Creatinine Lvl (test code = Creatinine 1.00 0.50-1.40 Lvl) [facility] [id number] 17:47:00 Test Item Value Reference Range Interpretation Comments Sodium Lvl (test code = Sodium Lvl) 139 135-145 [facility] [id number] 17:47:00 Test Item Value Reference Range Interpretation Comments Potassium Lvl (test code = Potassium 4.2 3.5-5.1 Lvl) [facility] [id number] 17:47:00 Test Item Value Reference Range Interpretation Comments Chloride Lvl (test code = Chloride Lvl) 103 95-109 [facility] [id number] 17:47:00 Test Item Value Reference Range Interpretation Comments CO2 (test code = CO2) 28 24-32 [place] 831881-04-30 17:47:00 Test Item Value Reference Range Interpretation Comments Calcium Lvl (test code = Calcium Lvl) 9.6 8.5-10.5 [place] 831881-04-30 17:47:00 Test Item Value Reference Range Interpretation Comments AGAP (test code = AGAP) 12.2 10.0-20.0 [place] 831881-04-30 17:47:00 Test Item Value Reference Range Interpretation Comments eGFR (test code = eGFR) 58 [place] 362701-04-30 17:47:00 Test Item Value Reference Range Interpretation Comments Segs (test code = Segs) 61.5 45.0-75.0 [place] 362701-04-30 17:47:00 Test Item Value Reference Range Interpretation Comments Lymphocytes (test code = Lymphocytes) 26.7 20.0-40.0 [place] 362701-04-30 17:47:00 Test Item Value Reference Range Interpretation Comments Monocytes (test code = Monocytes) 7.3 2.0-12.0 [facility] Hospit[id number] 17:47:00 Test Item Value Reference Range Interpretation Comments Eosinophils (test code = 3.1 See_Comment [A utomated message] The Eosinophils) system which nerated this result tra nsmitted reference range : <=4.0. The reference r katie was not used to int erpret this result as normal/abnormal . [facility] HospitalKecpnwjPTTMLFNTWR3750-81-00 17:47:00 Test Item Value Reference Range Interpretation Comments Basophils (test code = 1.4 See_Comment [Aut omated message] The Basophils) system which ge nerated this result tra nsmitted reference range : <=1.0. The reference r katie was not used to int erpret this result as normal/abnormal . [place] 362701-04-30 17:47:00 Test Item Value Reference Range Interpretation Comments Neutrophils # (test code = Neutrophils 4.1 1.5-8.1 #) [place] 362701-04-30 17:47:00 Test Item Value Reference Range Interpretation Comments Lymphocytes # (test code = Lymphocytes 1.8 1.0-5.5 #) [place] 362701-04-30 17:47:00 Test Item Value Reference Range Interpretation Comments Monocytes # (test code 0.5 See_Comment [Aut omated message] The = Monocytes #) system which generated this result tra nsmitted reference range : <=0.8. The reference r katie was not used to int erpret this result as normal/abnormal . [place] 362701-04-30 17:47:00 Test Item Value Reference Range Interpretation Comments Eosinophils # (test code 0.2 See_Comment [A utomated message] The = Eosinophils #) system whic h generated this result tra nsmitted reference range : <=0.5. The reference r katie was not used to int erpret this result as normal/abnormal . [place] 362701-04-30 17:47:00 Test Item Value Reference Range Interpretation Comments Basophils # (test code 0.1 See_Comment [Aut omated message] The = Basophils #) system which generated this result tra nsmitted reference range : <=0.2. The reference r katie was not used to int erpret this result as normal/abnormal . [facility] Hospit[id number] 17:47:00 Test Item Value Reference Range Interpretation Comments WBC X 10x3 (test code = WBC X 10x3) 6.6 3.7-10.4 [place] 362701-04-30 17:47:00 Test Item Value Reference Range Interpretation Comments RBC X 10x6 (test code = RBC X 10x6) 3.46 4.20-5.40 [place] 362701-04-30 17:47:00 Test Item Value Reference Range Interpretation Comments Hgb (test code = Hgb) 11.0 12.0-16.0 [place] 362701-04-30 17:47:00 Test Item Value Reference Range Interpretation Comments Hct (test code = Hct) 32.7 36.0-48.0 [place] 362701-04-30 17:47:00 Test Item Value Reference Range Interpretation Comments MCV (test code = MCV) 94.6 80.0-98.0 [place] 362701-04-30 17:47:00 Test Item Value Reference Range Interpretation Comments MCH (test code = MCH) 31.8 pg 27.0-31.0 [facility] H[id number] 17:47:00 Test Item Value Reference Range Interpretation Comments MCHC (test code = MCHC) 33.7 32.0-36.0 [facility] Hos[id number] 17:47:00 Test Item Value Reference Range Interpretation Comments RDW (test code = RDW) 12.4 11.5-14.5 [facility] Ho[id number] 17:47:00 Test Item Value Reference Range Interpretation Comments Platelet (test code = Platelet) 201 133-450 [facility] HospitalSmwrkkjCLCHDDEMEP7645-96-52 17:47:00 Test Item Value Reference Range Interpretation Comments MPV (test code = MPV) 7.9 7.4-10.4 [facility] HospitalOkhehckHOXTQIAAGR1722-98-58 17:47:00 Test Item Value Reference Range Interpretation Comments PT (test code = PT) 13.5 s 12.0-14.7 [facility] HospitalXzdsxrcRQUPOBWOPK8658-77-42 17:47:00 Test Item Value Reference Range Interpretation Comments INR (test code = INR) 1.04 1 0.85-1.17 [facility] Hospit[id number] 17:47:00 Test Item Value Reference Range Interpretation Comments PTT (test code = PTT) 27.3 s 22.9-35.8 [facility] AND [id number] 17:47:00 Test Item Value Reference Range Interpretation Comments UA Turbidity (test code Slight *ABN*(10/24/20 = UA Turbidity) 12:47 PM) [facility] AND [id number] 17:47:00 Test Item Value Reference Range Interpretation Comments UA Spec Grav (test code = UA Spec 1.012 1 Grav) [facility] AND [id number] 17:47:00 Test Item Value Reference Range Interpretation Comments UA pH (test code = UA pH) 6.0 1 5.0-8.0 [facility] AND [id number] 17:47:00 Test Item Value Reference Range Interpretation Comments UA Protein (test code = UA Negative mg/dL Protein) [facility] AND [id number] 17:47:00 Test Item Value Reference Range Interpretation Comments UA Glucose (test code = UA Negative mg/dL Glucose) [facility] AND [id number] 17:47:00 Test Item Value Reference Range Interpretation Comments UA Ketones (test code = UA Negative mg/dL Ketones) [facility] [id number] 17:47:00 Test Item Value Reference Range Interpretation Comments UA Bili (test code = Negative *NA*(10/24/20 UA Bili) 12:47 PM) [facility] [id number] 17:47:00 Test Item Value Reference Range Interpretation Comments UA Blood (test code = Negative (10/24/20 12:47 UA Blood) PM) [facility] AND [id number] 17:47:00 Test Item Value Reference Range Interpretation Comments UA Nitrite (test code Positive *ABN*(10/24/20 = UA Nitrite) 12:47 PM) [facility] AND [id number] 17:47:00 Test Item Value Reference Range Interpretation Comments UA Leuk Est (test code Large *ABN*(10/24/20 = UA Leuk Est) 12:47 PM) [facility] AND [id number] 17:47:00 Test Item Value Reference Range Interpretation Comments UA Sq Epi (test code = UA Sq Occasional /LPF Epi) [facility] AND [id number] 17:47:00 Test Item Value Reference Range Interpretation Comments UA WBC (test code = 70 See_Comment [Automa matteo message] The UA WBC) system which ge nerated this result transmit matteo reference range : <=5. The reference range was not used to interpr et this result as miesha l/abnormal. [facility] [id number] 17:47:00 Test Item Value Reference Range Interpretation Comments UA RBC (test code = 1 See_Comment [Automa matteo message] The UA RBC) system which ge nerated this result transmit matteo reference range : <=2. The reference range was not used to interpr et this result as miesha l/abnormal. [facility] [id number] 17:47:00 Test Item Value Reference Range Interpretation Comments UA Bacteria (test code = UA Many /HPF Bacteria) [facility] AND [id number] 17:47:00 Test Item Value Reference Range Interpretation Comments UA Color (test code = UA Color) Ltyellow [facility] AND [id number] 17:47:00 Test Item Value Reference Range Interpretation Comments UA Urobilinogen (test code = UA no gt 0.1-1.0 Urobilinogen) [facility] [id number] 17:47:00 Test Item Value Reference Range Interpretation Comments RBC product (test code Product available = RBC product) (10/24/20 12:47 PM) [facility]2021-04-30 17:47:00 Test Item Value Reference Range Interpretation Comments Glucose Lvl (test code = Glucose Lvl) 110 70-99 [facility]2021-04-30 17:47:00 Test Item Value Reference Range Interpretation Comments BUN (test code = BUN) 42 7-22 [facility]2021-04-30 17:47:00 Test Item Value Reference Range Interpretation Comments Creatinine Lvl (test code = Creatinine 1.00 0.50-1.40 Lvl) [facility]2021-04-30 17:47:00 Test Item Value Reference Range Interpretation Comments Sodium Lvl (test code = Sodium Lvl) 139 135-145 [facility]2021-04-30 17:47:00 Test Item Value Reference Range Interpretation Comments Potassium Lvl (test code = Potassium 4.2 3.5-5.1 Lvl) [facility]2021-04-30 17:47:00 Test Item Value Reference Range Interpretation Comments Chloride Lvl (test code = Chloride Lvl) 103 95-109 [facility]2021-04-30 17:47:00 Test Item Value Reference Range Interpretation Comments CO2 (test code = CO2) 28 24-32 [facility]2021-04-30 17:47:00 Test Item Value Reference Range Interpretation Comments Calcium Lvl (test code = Calcium Lvl) 9.6 8.5-10.5 [facility]2021-04-30 17:47:00 Test Item Value Reference Range Interpretation Comments AGAP (test code = AGAP) 12.2 10.0-20.0 [facility]2021-04-30 17:47:00 Test Item Value Reference Range Interpretation Comments eGFR (test code = eGFR) 58 [facility]AareaqoXIVSZPVWGW9526-22-65 17:47:00 Test Item Value Reference Range Interpretation Comments Segs (test code = Segs) 61.5 45.0-75.0 [place] 362701-04-30 17:47:00 Test Item Value Reference Range Interpretation Comments Lymphocytes (test code = Lymphocytes) 26.7 20.0-40.0 [place] 362701-04-30 17:47:00 Test Item Value Reference Range Interpretation Comments Monocytes (test code = Monocytes) 7.3 2.0-12.0 [place] 362701-04-30 17:47:00 Test Item Value Reference Range Interpretation Comments Eosinophils (test code = 3.1 See_Comment [A utomated message] The Eosinophils) system which ge nerated this result tra nsmitted reference range : <=4.0. The reference r katie was not used to int erpret this result as normal/abnormal . [place] [address]-04-30 17:47:00 Test Item Value Reference Range Interpretation Comments Basophils (test code = 1.4 See_Comment [Aut omated message] The Basophils) system which ge nerated this result tra nsmitted reference range : <=1.0. The reference r katie was not used to int erpret this result as normal/abnormal . [facility] HospitalYwpokndBNXNAHTJVB8585-64-05 17:47:00 Test Item Value Reference Range Interpretation Comments Neutrophils # (test code = Neutrophils 4.1 1.5-8.1 #) [place] 362701-04-30 17:47:00 Test Item Value Reference Range Interpretation Comments Lymphocytes # (test code = Lymphocytes 1.8 1.0-5.5 #) [place] 362701-04-30 17:47:00 Test Item Value Reference Range Interpretation Comments Monocytes # (test code 0.5 See_Comment [Aut omated message] The = Monocytes #) system which generated this result tra nsmitted reference range : <=0.8. The reference r katie was not used to int erpret this result as normal/abnormal . [place] 362701-04-30 17:47:00 Test Item Value Reference Range Interpretation Comments Eosinophils # (test code 0.2 See_Comment [A utomated message] The = Eosinophils #) system ic h generated this result tra nsmitted reference range : <=0.5. The reference r katie was not used to int erpret this result as normal/abnormal . [facility] Hos[id number] 17:47:00 Test Item Value Reference Range Interpretation Comments Basophils # (test code 0.1 See_Comment [Aut omated message] The = Basophils #) system which generated this result tra nsmitted reference range : <=0.2. The reference r katie was not used to int erpret this result as normal/abnormal . [facility] HospitalAtvwkryXXZVMXTGHA7418-75-66 17:47:00 Test Item Value Reference Range Interpretation Comments WBC X 10x3 (test code = WBC X 10x3) 6.6 3.7-10.4 [facility] HospitalIgpomkzCLVMKKWBQP9062-34-35 17:47:00 Test Item Value Reference Range Interpretation Comments RBC X 10x6 (test code = RBC X 10x6) 3.46 4.20-5.40 [facility] HospitalSxjfcgsPXHDHOJUNS7171-37-16 17:47:00 Test Item Value Reference Range Interpretation Comments Hgb (test code = Hgb) 11.0 12.0-16.0 [facility] HospitalRspouxnDKQIOHCAYW2569-40-11 17:47:00 Test Item Value Reference Range Interpretation Comments Hct (test code = Hct) 32.7 36.0-48.0 [facility] HospitalPmigscrNJPTSYWQDO8501-67-59 17:47:00 Test Item Value Reference Range Interpretation Comments MCV (test code = MCV) 94.6 80.0-98.0 [facility] HospitalKajsdxeVOGUWKKOOJ9975-08-85 17:47:00 Test Item Value Reference Range Interpretation Comments MCH (test code = MCH) 31.8 pg 27.0-31.0 [facility] HospitalXdhpbcwFNYRKWVSCP3592-23-38 17:47:00 Test Item Value Reference Range Interpretation Comments MCHC (test code = MCHC) 33.7 32.0-36.0 [place] 362701-04-30 17:47:00 Test Item Value Reference Range Interpretation Comments RDW (test code = RDW) 12.4 11.5-14.5 [place] 362701-04-30 17:47:00 Test Item Value Reference Range Interpretation Comments Platelet (test code = Platelet) 201 133-450 [id number] 17:47:00 Test Item Value Reference Range Interpretation Comments MPV (test code = MPV) 7.9 7.4-10.4 [facility] HospitalKildpxvHLKCXGGAUX6380-10-49 17:47:00 Test Item Value Reference Range Interpretation Comments PT (test code = PT) 13.5 s 12.0-14.7 [facility] HospitalKllnmcgVCFBIQSFUW8354-89-07 17:47:00 Test Item Value Reference Range Interpretation Comments INR (test code = INR) 1.04 1 0.85-1.17 [facility] HospitalHqskimrHUFHGMPQEZ6693-03-59 17:47:00 Test Item Value Reference Range Interpretation Comments PTT (test code = PTT) 27.3 s 22.9-35.8 [facility] [id number] 17:47:00 Test Item Value Reference Range Interpretation Comments UA Turbidity (test code Slight *ABN*(10/24/20 = UA Turbidity) 12:47 PM) [facility] [id number] 17:47:00 Test Item Value Reference Range Interpretation Comments UA Spec Grav (test code = UA Spec 1.012 1 Grav) [facility] [id number] 17:47:00 Test Item Value Reference Range Interpretation Comments UA pH (test code = UA pH) 6.0 1 5.0-8.0 [facility] [id number] 17:47:00 Test Item Value Reference Range Interpretation Comments UA Protein (test code = UA Negative mg/dL Protein) [facility] [id number] 17:47:00 Test Item Value Reference Range Interpretation Comments UA Glucose (test code = UA Negative mg/dL Glucose) [facility] [id number] 17:47:00 Test Item Value Reference Range Interpretation Comments UA Ketones (test code = UA Negative mg/dL Ketones) [facility] [id number] 17:47:00 Test Item Value Reference Range Interpretation Comments UA Bili (test code = Negative *NA*(10/24/20 UA Bili) 12:47 PM) [facility] [id number] 17:47:00 Test Item Value Reference Range Interpretation Comments UA Blood (test code = Negative (10/24/20 12:47 UA Blood) PM) [facility] [id number] 17:47:00 Test Item Value Reference Range Interpretation Comments UA Nitrite (test code Positive *ABN*(10/24/20 = UA Nitrite) 12:47 PM) [facility] [id number] 17:47:00 Test Item Value Reference Range Interpretation Comments UA Leuk Est (test code Large *ABN*(10/24/20 = UA Leuk Est) 12:47 PM) [facility] [id number] 17:47:00 Test Item Value Reference Range Interpretation Comments UA Sq Epi (test code = UA Sq Occasional /LPF Epi) [facility] [id number] 17:47:00 Test Item Value Reference Range Interpretation Comments UA WBC (test code = 70 See_Comment [Automa matteo message] The UA WBC) system which ge nerated this result transmit matteo reference range : <=5. The reference range was not used to interpr et this result as miesha l/abnormal. [facility] [id number] 17:47:00 Test Item Value Reference Range Interpretation Comments UA RBC (test code = 1 See_Comment [Automa matteo message] The UA RBC) system which ge nerated this result transmit matteo reference range : <=2. The reference range was not used to interpr et this result as miesha l/abnormal. [facility] [id number] 17:47:00 Test Item Value Reference Range Interpretation Comments UA Bacteria (test code = UA Many /HPF Bacteria) [facility] [id number] 17:47:00 Test Item Value Reference Range Interpretation Comments UA Color (test code = UA Color) Ltyellow [facility] [id number] 17:47:00 Test Item Value Reference Range Interpretation Comments UA Urobilinogen (test code = UA no gt 0.1-1.0 Urobilinogen) [facility] [id number] 17:47:00 Test Item Value Reference Range Interpretation Comments RBC product (test code Product available = RBC product) (10/24/20 12:47 PM) [facility] [id number] 17:47:00 Test Item Value Reference Range Interpretation Comments Glucose Lvl (test code = Glucose Lvl) 110 70-99 [facility] [id number] 17:47:00 Test Item Value Reference Range Interpretation Comments BUN (test code = BUN) 42 7-22 [place] 831881-04-30 17:47:00 Test Item Value Reference Range Interpretation Comments Creatinine Lvl (test code = Creatinine 1.00 0.50-1.40 Lvl) [place] 831881-04-30 17:47:00 Test Item Value Reference Range Interpretation Comments Sodium Lvl (test code = Sodium Lvl) 139 135-145 [place] 831881-04-30 17:47:00 Test Item Value Reference Range Interpretation Comments Potassium Lvl (test code = Potassium 4.2 3.5-5.1 Lvl) [place] 831881-04-30 17:47:00 Test Item Value Reference Range Interpretation Comments Chloride Lvl (test code = Chloride Lvl) 103 95-109 [place] 831881-04-30 17:47:00 Test Item Value Reference Range Interpretation Comments CO2 (test code = CO2) 28 24-32 [place] 831881-04-30 17:47:00 Test Item Value Reference Range Interpretation Comments Calcium Lvl (test code = Calcium Lvl) 9.6 8.5-10.5 [place] 831881-04-30 17:47:00 Test Item Value Reference Range Interpretation Comments AGAP (test code = AGAP) 12.2 10.0-20.0 [place] 831881-04-30 17:47:00 Test Item Value Reference Range Interpretation Comments eGFR (test code = eGFR) 58 [place] 362701-04-30 17:47:00 Test Item Value Reference Range Interpretation Comments Segs (test code = Segs) 61.5 45.0-75.0 [place] 362701-04-30 17:47:00 Test Item Value Reference Range Interpretation Comments Lymphocytes (test code = Lymphocytes) 26.7 20.0-40.0 [place] [address]-04-30 17:47:00 Test Item Value Reference Range Interpretation Comments Monocytes (test code = Monocytes) 7.3 2.0-12.0 [place] [address]-04-30 17:47:00 Test Item Value Reference Range Interpretation Comments Eosinophils (test code = 3.1 See_Comment [A utomated message] The Eosinophils) system which ge nerated this result tra nsmitted reference range : <=4.0. The reference r katie was not used to int erpret this result as normal/abnormal . [facility]MrnqiixJWRGYKTCKX0021-06-49 17:47:00 Test Item Value Reference Range Interpretation Comments Basophils (test code = 1.4 See_Comment [Aut omated message] The Basophils) system which ge nerated this result tra nsmitted reference range : <=1.0. The reference r katie was not used to int erpret this result as normal/abnormal . [place] 362701-04-30 17:47:00 Test Item Value Reference Range Interpretation Comments Neutrophils # (test code = Neutrophils 4.1 1.5-8.1 #) [facility] HospitalOziurznGFSWUPXEUL0451-19-73 17:47:00 Test Item Value Reference Range Interpretation Comments Lymphocytes # (test code = Lymphocytes 1.8 1.0-5.5 #) [place] 362701-04-30 17:47:00 Test Item Value Reference Range Interpretation Comments Monocytes # (test code 0.5 See_Comment [Aut omated message] The = Monocytes #) system which generated this result tra nsmitted reference range : <=0.8. The reference r katie was not used to int erpret this result as normal/abnormal . [facility] HospitalEdrrxqxDMDMHQMINO0558-94-55 17:47:00 Test Item Value Reference Range Interpretation Comments Eosinophils # (test code 0.2 See_Comment [A utomated message] The = Eosinophils #) system whic h generated this result tra nsmitted reference range : <=0.5. The reference r katie was not used to int erpret this result as normal/abnormal . [facility] HospitalVlwkejjUQIKCSZYCL2215-19-82 17:47:00 Test Item Value Reference Range Interpretation Comments Basophils # (test code 0.1 See_Comment [Aut omated message] The = Basophils #) system which generated this result tra nsmitted reference range : <=0.2. The reference r katie was not used to int erpret this result as normal/abnormal . [facility] HospitalLhswoxnNTQTFNNZYN0132-31-78 17:47:00 Test Item Value Reference Range Interpretation Comments WBC X 10x3 (test code = WBC X 10x3) 6.6 3.7-10.4 [place] 362701-04-30 17:47:00 Test Item Value Reference Range Interpretation Comments RBC X 10x6 (test code = RBC X 10x6) 3.46 4.20-5.40 [facility]XdvwkqgSIJVQBRHJH7338-33-18 17:47:00 Test Item Value Reference Range Interpretation Comments Hgb (test code = Hgb) 11.0 12.0-16.0 [facility]WN7352-93-53 17:47:00 Test Item Value Reference Range Interpretation Comments Hct (test code = Hct) 32.7 36.0-48.0 [facility] CenterHkbmwpbRZAOJOJVMM4578-48-17 17:47:00 Test Item Value Reference Range Interpretation Comments MCV (test code = MCV) 94.6 80.0-98.0 [facility] CenterNadxoqyXSXLOZDZUI5691-34-48 17:47:00 Test Item Value Reference Range Interpretation Comments MCH (test code = MCH) 31.8 pg 27.0-31.0 [facility] RegionSrahpmpPENARVVXWC4701-80-81 17:47:00 Test Item Value Reference Range Interpretation Comments MCHC (test code = MCHC) 33.7 32.0-36.0 [facility] RegionGftwtmmCZDKYQQALW2624-84-06 17:47:00 Test Item Value Reference Range Interpretation Comments RDW (test code = RDW) 12.4 11.5-14.5 [facility] CenterDprjcaiWJATUPIRSR0861-18-46 17:47:00 Test Item Value Reference Range Interpretation Comments Platelet (test code = Platelet) 201 133-450 [facility] CenterVszfgauMRGSPGGSKD4185-44-21 17:47:00 Test Item Value Reference Range Interpretation Comments MPV (test code = MPV) 7.9 7.4-10.4 [facility] CenterRbgstbnESJFOBPDOJ2736-64-08 17:47:00 Test Item Value Reference Range Interpretation Comments PT (test code = PT) 13.5 s 12.0-14.7 [facility] CenterUxnhikbEOTLMZHMSQ1607-71-71 17:47:00 Test Item Value Reference Range Interpretation Comments INR (test code = INR) 1.04 1 0.85-1.17 [facility] CenterRcwpzgqSILPJBZWPJ3290-04-40 17:47:00 Test Item Value Reference Range Interpretation Comments PTT (test code = PTT) 27.3 s 22.9-35.8 [facility] [id number] 17:47:00 Test Item Value Reference Range Interpretation Comments UA Turbidity (test code Slight *ABN*(10/24/20 = UA Turbidity) 12:47 PM) [facility] [id number] 17:47:00 Test Item Value Reference Range Interpretation Comments UA Spec Grav (test code = UA Spec 1.012 1 Grav) [facility] [id number] 17:47:00 Test Item Value Reference Range Interpretation Comments UA pH (test code = UA pH) 6.0 1 5.0-8.0 [facility] [id number] 17:47:00 Test Item Value Reference Range Interpretation Comments UA Protein (test code = UA Negative mg/dL Protein) [facility] [id number] 17:47:00 Test Item Value Reference Range Interpretation Comments UA Glucose (test code = UA Negative mg/dL Glucose) [facility] [id number] 17:47:00 Test Item Value Reference Range Interpretation Comments UA Ketones (test code = UA Negative mg/dL Ketones) [facility] [id number] 17:47:00 Test Item Value Reference Range Interpretation Comments UA Bili (test code = Negative *NA*(10/24/20 UA Bili) 12:47 PM) [facility] [id number] 17:47:00 Test Item Value Reference Range Interpretation Comments UA Blood (test code = Negative (10/24/20 12:47 UA Blood) PM) [facility] [id number] 17:47:00 Test Item Value Reference Range Interpretation Comments UA Nitrite (test code Positive *ABN*(10/24/20 = UA Nitrite) 12:47 PM) [facility] [id number] 17:47:00 Test Item Value Reference Range Interpretation Comments UA Leuk Est (test code Large *ABN*(10/24/20 = UA Leuk Est) 12:47 PM) [facility] [id number] 17:47:00 Test Item Value Reference Range Interpretation Comments UA Sq Epi (test code = UA Sq Occasional /LPF Epi) [facility] [id number] 17:47:00 Test Item Value Reference Range Interpretation Comments UA WBC (test code = 70 See_Comment [Automa matteo message] The UA WBC) system which ge nerated this result transmit matteo reference range : <=5. The reference range was not used to interpr et this result as miesha l/abnormal. [facility] [id number] 17:47:00 Test Item Value Reference Range Interpretation Comments UA RBC (test code = 1 See_Comment [Automa matteo message] The UA RBC) system which ge nerated this result transmit matteo reference range : <=2. The reference range was not used to interpr et this result as miesha l/abnormal. [facility] [id number] 17:47:00 Test Item Value Reference Range Interpretation Comments UA Bacteria (test code = UA Many /HPF Bacteria) [facility] [id number] 17:47:00 Test Item Value Reference Range Interpretation Comments UA Color (test code = UA Color) Ltyellow [facility] [id number] 17:47:00 Test Item Value Reference Range Interpretation Comments UA Urobilinogen (test code = UA no gt 0.1-1.0 Urobilinogen) [facility] [id number] 17:47:00 Test Item Value Reference Range Interpretation Comments RBC product (test code Product available = RBC product) (10/24/20 12:47 PM) [facility]2021-04-30 17:47:00 Test Item Value Reference Range Interpretation Comments Glucose Lvl (test code = Glucose Lvl) 110 70-99 [facility]2021-04-30 17:47:00 Test Item Value Reference Range Interpretation Comments BUN (test code = BUN) 42 7-22 [facility]2021-04-30 17:47:00 Test Item Value Reference Range Interpretation Comments Creatinine Lvl (test code = Creatinine 1.00 0.50-1.40 Lvl) [facility]2021-04-30 17:47:00 Test Item Value Reference Range Interpretation Comments Sodium Lvl (test code = Sodium Lvl) 139 135-145 [facility]2021-04-30 17:47:00 Test Item Value Reference Range Interpretation Comments Potassium Lvl (test code = Potassium 4.2 3.5-5.1 Lvl) [facility]2021-04-30 17:47:00 Test Item Value Reference Range Interpretation Comments Chloride Lvl (test code = Chloride Lvl) 103 95-109 [place] 831881-04-30 17:47:00 Test Item Value Reference Range Interpretation Comments CO2 (test code = CO2) 28 24-32 [place] 831881-04-30 17:47:00 Test Item Value Reference Range Interpretation Comments Calcium Lvl (test code = Calcium Lvl) 9.6 8.5-10.5 [place] 831881-04-30 17:47:00 Test Item Value Reference Range Interpretation Comments AGAP (test code = AGAP) 12.2 10.0-20.0 [place] 831881-04-30 17:47:00 Test Item Value Reference Range Interpretation Comments eGFR (test code = eGFR) 58 [place] 362701-04-30 17:47:00 Test Item Value Reference Range Interpretation Comments Segs (test code = Segs) 61.5 45.0-75.0 [place] 362701-04-30 17:47:00 Test Item Value Reference Range Interpretation Comments Lymphocytes (test code = Lymphocytes) 26.7 20.0-40.0 [place] 362701-04-30 17:47:00 Test Item Value Reference Range Interpretation Comments Monocytes (test code = Monocytes) 7.3 2.0-12.0 [place] 362701-04-30 17:47:00 Test Item Value Reference Range Interpretation Comments Eosinophils (test code = 3.1 See_Comment [A utomated message] The Eosinophils) system which ge nerated this result tra nsmitted reference range : <=4.0. The reference r katie was not used to int erpret this result as normal/abnormal . [place] 362701-04-30 17:47:00 Test Item Value Reference Range Interpretation Comments Basophils (test code = 1.4 See_Comment [Aut omated message] The Basophils) system which ge nerated this result tra nsmitted reference range : <=1.0. The reference r katie was not used to int erpret this result as normal/abnormal . [place] [address]-04-30 17:47:00 Test Item Value Reference Range Interpretation Comments Neutrophils # (test code = Neutrophils 4.1 1.5-8.1 #) [place] 362701-04-30 17:47:00 Test Item Value Reference Range Interpretation Comments Lymphocytes # (test code = Lymphocytes 1.8 1.0-5.5 #) [facility]MofplxiBBEJVPOEOH4974-94-18 17:47:00 Test Item Value Reference Range Interpretation Comments Monocytes # (test code 0.5 See_Comment [Aut omated message] The = Monocytes #) system which generated this result tra nsmitted reference range : <=0.8. The reference r katie was not used to int erpret this result as normal/abnormal . [facility] HospitalSurdlgqMBMBBVGEIQ6566-61-23 17:47:00 Test Item Value Reference Range Interpretation Comments Eosinophils # (test code 0.2 See_Comment [A utomated message] The = Eosinophils #) system whic h generated this result tra nsmitted reference range : <=0.5. The reference r katie was not used to int erpret this result as normal/abnormal . [place] 362701-04-30 17:47:00 Test Item Value Reference Range Interpretation Comments Basophils # (test code 0.1 See_Comment [Aut omated message] The = Basophils #) system which generated this result tra nsmitted reference range : <=0.2. The reference r katie was not used to int erpret this result as normal/abnormal . [facility] HospitalZccnfgsRETTSSEBQV9080-79-50 17:47:00 Test Item Value Reference Range Interpretation Comments WBC X 10x3 (test code = WBC X 10x3) 6.6 3.7-10.4 [place] 362701-04-30 17:47:00 Test Item Value Reference Range Interpretation Comments RBC X 10x6 (test code = RBC X 10x6) 3.46 4.20-5.40 [place] 362701-04-30 17:47:00 Test Item Value Reference Range Interpretation Comments Hgb (test code = Hgb) 11.0 12.0-16.0 [place] 362701-04-30 17:47:00 Test Item Value Reference Range Interpretation Comments Hct (test code = Hct) 32.7 36.0-48.0 [place] 362701-04-30 17:47:00 Test Item Value Reference Range Interpretation Comments MCV (test code = MCV) 94.6 80.0-98.0 [place] 362701-04-30 17:47:00 Test Item Value Reference Range Interpretation Comments MCH (test code = MCH) 31.8 pg 27.0-31.0 [facility]OmkqjxoXDFZAHUMLK6027-56-61 17:47:00 Test Item Value Reference Range Interpretation Comments MCHC (test code = MCHC) 33.7 32.0-36.0 [facility] RegionHnogkcnDOXJIOPFTS6452-16-02 17:47:00 Test Item Value Reference Range Interpretation Comments RDW (test code = RDW) 12.4 11.5-14.5 [facility] HospitalTwwinukHGDSGUFPMN0850-18-57 17:47:00 Test Item Value Reference Range Interpretation Comments Platelet (test code = Platelet) 201 133-450 [facility] HospitalRipylrrNSYUEGGKIL2028-05-12 17:47:00 Test Item Value Reference Range Interpretation Comments MPV (test code = MPV) 7.9 7.4-10.4 [facility] HospitalDpujsznMVOWDSVEKF7647-04-85 17:47:00 Test Item Value Reference Range Interpretation Comments PT (test code = PT) 13.5 s 12.0-14.7 [facility] HospitalIaicjcdRVALHOHPLI6710-20-72 17:47:00 Test Item Value Reference Range Interpretation Comments INR (test code = INR) 1.04 1 0.85-1.17 [facility] HospitalMdbjgurBLIQFIBXGT7278-14-86 17:47:00 Test Item Value Reference Range Interpretation Comments PTT (test code = PTT) 27.3 s 22.9-35.8 [facility] [id number] 17:47:00 Test Item Value Reference Range Interpretation Comments UA Turbidity (test code Slight *ABN*(10/24/20 = UA Turbidity) 12:47 PM) [facility] [id number] 17:47:00 Test Item Value Reference Range Interpretation Comments UA Spec Grav (test code = UA Spec 1.012 1 Grav) [facility] [id number] 17:47:00 Test Item Value Reference Range Interpretation Comments UA pH (test code = UA pH) 6.0 1 5.0-8.0 [facility] [id number] 17:47:00 Test Item Value Reference Range Interpretation Comments UA Protein (test code = UA Negative mg/dL Protein) [facility] [id number] 17:47:00 Test Item Value Reference Range Interpretation Comments UA Glucose (test code = UA Negative mg/dL Glucose) [facility] [id number] 17:47:00 Test Item Value Reference Range Interpretation Comments UA Ketones (test code = UA Negative mg/dL Ketones) [facility] [id number] 17:47:00 Test Item Value Reference Range Interpretation Comments UA Bili (test code = Negative *NA*(10/24/20 UA Bili) 12:47 PM) [facility] [id number] 17:47:00 Test Item Value Reference Range Interpretation Comments UA Blood (test code = Negative (10/24/20 12:47 UA Blood) PM) [facility] [id number] 17:47:00 Test Item Value Reference Range Interpretation Comments UA Nitrite (test code Positive *ABN*(10/24/20 = UA Nitrite) 12:47 PM) [facility] [id number] 17:47:00 Test Item Value Reference Range Interpretation Comments UA Leuk Est (test code Large *ABN*(10/24/20 = UA Leuk Est) 12:47 PM) [facility] AND [id number] 17:47:00 Test Item Value Reference Range Interpretation Comments UA Sq Epi (test code = UA Sq Occasional /LPF Epi) [facility] [id number] 17:47:00 Test Item Value Reference Range Interpretation Comments UA WBC (test code = 70 See_Comment [Automa matteo message] The UA WBC) system which ge nerated this result transmit matteo reference range : <=5. The reference range was not used to interpr et this result as miesha l/abnormal. [facility] [id number] 17:47:00 Test Item Value Reference Range Interpretation Comments UA RBC (test code = 1 See_Comment [Automa matteo message] The UA RBC) system which ge nerated this result transmit matteo reference range : <=2. The reference range was not used to interpr et this result as miesha l/abnormal. [facility] [id number] 17:47:00 Test Item Value Reference Range Interpretation Comments UA Bacteria (test code = UA Many /HPF Bacteria) [facility] [id number] 17:47:00 Test Item Value Reference Range Interpretation Comments UA Color (test code = UA Color) Ltyellow [facility] [id number] 17:47:00 Test Item Value Reference Range Interpretation Comments UA Urobilinogen (test code = UA no gt 0.1-1.0 Urobilinogen) [facility]2021-03-25 16:20:00 Test Item Value Reference Range Interpretation Comments POC Creatinine (test code = POC 1.1 0.5-1.4 Creatinine) [facility]2021-03-25 16:20:00 Test Item Value Reference Range Interpretation Comments eGFR (test code = eGFR) 52 [facility]2021-03-25 16:20:00 Test Item Value Reference Range Interpretation Comments POC Creatinine (test code = POC 1.1 0.5-1.4 Creatinine) [facility]2021-03-25 16:20:00 Test Item Value Reference Range Interpretation Comments eGFR (test code = eGFR) 52 [facility]2021-03-25 16:20:00 Test Item Value Reference Range Interpretation Comments POC Creatinine (test code = POC 1.1 0.5-1.4 Creatinine) [facility]2021-03-25 16:20:00 Test Item Value Reference Range Interpretation Comments eGFR (test code = eGFR) 52 [facility]2021-03-25 16:20:00 Test Item Value Reference Range Interpretation Comments POC Creatinine (test code = POC 1.1 0.5-1.4 Creatinine) [facility]2021-03-25 16:20:00 Test Item Value Reference Range Interpretation Comments eGFR (test code = eGFR) 52 [facility]2021-03-25 16:20:00 Test Item Value Reference Range Interpretation Comments POC Creatinine (test code = POC 1.1 0.5-1.4 Creatinine) [facility]2021-03-25 16:20:00 Test Item Value Reference Range Interpretation Comments eGFR (test code = eGFR) 52 [facility]2021-03-25 16:20:00 Test Item Value Reference Range Interpretation Comments POC Creatinine (test code = POC 1.1 0.5-1.4 Creatinine) [facility]2021-03-25 16:20:00 Test Item Value Reference Range Interpretation Comments eGFR (test code = eGFR) 52 [place] [address]-12-18 19:26:00 Test Item Value Reference Range Interpretation Comments eGFR (test code = eGFR) 67 [place] [address]-12-18 19:26:00 Test Item Value Reference Range Interpretation Comments POC Creatinine (test code = POC 0.9 0.5-1.4 Creatinine) [place] [address]-12-18 19:26:00 Test Item Value Reference Range Interpretation Comments eGFR (test code = eGFR) 67 [place] [address]-12-18 19:26:00 Test Item Value Reference Range Interpretation Comments POC Creatinine (test code = POC 0.9 0.5-1.4 Creatinine) [place] [address]-12-18 19:26:00 Test Item Value Reference Range Interpretation Comments eGFR (test code = eGFR) [address]12-18 19:26:00 Test Item Value Reference Range Interpretation Comments POC Creatinine (test code = POC 0.9 0.5-1.4 Creatinine) [facility]2018-12-18 19:26:00 Test Item Value Reference Range Interpretation Comments eGFR (test code = eGFR) 67 [place] [address]-12-18 19:26:00 Test Item Value Reference Range Interpretation Comments POC Creatinine (test code = POC 0.9 0.5-1.4 Creatinine) [place] [address]-12-18 19:26:00 Test Item Value Reference Range Interpretation Comments eGFR (test code = eGFR) 67 [place] [address]-12-18 19:26:00 Test Item Value Reference Range Interpretation Comments POC Creatinine (test code = POC 0.9 0.5-1.4 Creatinine) [place] [address]-12-18 19:26:00 Test Item Value Reference Range Interpretation Comments eGFR (test code = eGFR) 67 [place] [address]-12-18 19:26:00 Test Item Value Reference Range Interpretation Comments POC Creatinine (test code = POC 0.9 0.5-1.4 Creatinine) [facility]KSXSCJFXJ1909[facility]30-[facility] 13:59:00 Test Item Value Reference Range Interpretation Comments Hgb (test code = Hgb) 8.2 12.0-16.0 [facility]QitpnugNKBYBMVEGN2073-28-82 13:59:00 Test Item Value Reference Range Interpretation Comments Hct (test code = Hct) 23.6 36.0-48.0 [facility] HospitalUrxruuiWHJFJMKBOY2893-63-03 13:59:00 Test Item Value Reference Range Interpretation Comments Hgb (test code = Hgb) 8.2 12.0-16.0 [facility] HospitalEqhkpveIWJZVBUUUN9847-51-34 13:59:00 Test Item Value Reference Range Interpretation Comments Hct (test code = Hct) 23.6 36.0-48.0 [facility] HospitalNvstokfSONRPACOYJ9432-73-51 13:59:00 Test Item Value Reference Range Interpretation Comments Hgb (test code = Hgb) 8.2 12.0-16.0 [facility] HospitalBspnqsnGRNECZRUNM3141-91-34 13:59:00 Test Item Value Reference Range Interpretation Comments Hct (test code = Hct) 23.6 36.0-48.0 [facility] HospitalNcbuhjjYHQBACJZEJ4269-84-92 13:59:00 Test Item Value Reference Range Interpretation Comments Hgb (test code = Hgb) 8.2 12.0-16.0 [facility] HospitalSwbyjgoTMYXXZHBGJ3119-21-56 13:59:00 Test Item Value Reference Range Interpretation Comments Hct (test code = Hct) 23.6 36.0-48.0 [facility] HospitalXbgfebrPEOXOOENYH6653-73-65 13:59:00 Test Item Value Reference Range Interpretation Comments Hgb (test code = Hgb) 8.2 12.0-16.0 [facility] HospitalUwlvpiuSPEXQXRAOA3116-07-54 13:59:00 Test Item Value Reference Range Interpretation Comments Hct (test code = Hct) 23.6 36.0-48.0 [facility] HospitalPoqkxkqIDZPRNXXTI6843-79-24 13:59:00 Test Item Value Reference Range Interpretation Comments Hgb (test code = Hgb) 8.2 12.0-16.0 [facility] HospitalQpjpnjlIHJSGIWNNK8314-61-41 13:59:00 Test Item Value Reference Range Interpretation Comments Hct (test code = Hct) 23.6 36.0-48.0 [facility]2018-05-23 07:58:00 Test Item Value Reference Range Interpretation Comments eGFR (test code = eGFR) 78 [facility] UGZBD4057-22-99 07:58:00 Test Item Value Reference Range Interpretation Comments AST (test code = AST) 29 See_Comment [Auto mated message] The system which ge nerated this result transmit matteo reference range : <=37. The reference range was not used to interpr et this result as miesha l/abnormal. [facility]2018-05-23 07:58:00 Test Item Value Reference Range Interpretation Comments ALT (test code = ALT) 22 See_Comment [Auto mated message] The system which ge nerated this result transmit matteo reference range : <=65. The reference range was not used to interpr et this result as miesha l/abnormal. [facility]2018-05-23 07:58:00 Test Item Value Reference Range Interpretation Comments Alk Phos (test code = Alk Phos) 41 39-136 [place] 937618-05-23 07:58:00 Test Item Value Reference Range Interpretation Comments Bili Total (test code = Bili Total) 0.5 0.2-1.3 [place] 937618-05-23 07:58:00 Test Item Value Reference Range Interpretation Comments Calcium Lvl (test code = Calcium Lvl) 7.3 8.5-10.5 [facility]2018-05-23 07:58:00 Test Item Value Reference Range Interpretation Comments CO2 (test code = CO2) 28 24-32 [facility]2018-05-23 07:58:00 Test Item Value Reference Range Interpretation Comments Total Protein (test code = Total 5.4 6.4-8.4 Protein) [facility]2018-05-23 07:58:00 Test Item Value Reference Range Interpretation Comments Albumin Lvl (test code = Albumin Lvl) 2.7 3.5-5.0 [facility]2018-05-23 07:58:00 Test Item Value Reference Range Interpretation Comments Glucose Lvl (test code = Glucose Lvl) 98 70-99 [place] 937618-05-23 07:58:00 Test Item Value Reference Range Interpretation Comments Potassium Lvl (test code = Potassium 3.5 3.5-5.1 Lvl) [facility]2018-05-23 07:58:00 Test Item Value Reference Range Interpretation Comments Sodium Lvl (test code = Sodium Lvl) 140 135-145 [facility]2018-05-23 07:58:00 Test Item Value Reference Range Interpretation Comments Chloride Lvl (test code = Chloride Lvl) 103 95-109 [facility]2018-05-23 07:58:00 Test Item Value Reference Range Interpretation Comments BUN (test code = BUN) 16 7-22 [facility]2018-05-23 07:58:00 Test Item Value Reference Range Interpretation Comments Creatinine Lvl (test code = Creatinine 0.80 0.50-1.40 Lvl) [facility]2018-05-23 07:58:00 Test Item Value Reference Range Interpretation Comments A/G Ratio (test code = A/G Ratio) 1.0 1 0.7-1.6 [place] [address]-05-23 07:58:00 Test Item Value Reference Range Interpretation Comments Globulin (test code = Globulin) 2.7 2.7-4.2 [facility]2018-05-23 07:58:00 Test Item Value Reference Range Interpretation Comments B/C Ratio (test code = B/C Ratio) 20 1 6-25 [place] 937618-05-23 07:58:00 Test Item Value Reference Range Interpretation Comments AGAP (test code = AGAP) 12.5 10.0-20.0 [facility]2018-05-23 07:58:00 Test Item Value Reference Range Interpretation Comments Phosphorus (test code = Phosphorus) 3.5 2.5-4.5 [facility]2018-05-23 07:58:00 Test Item Value Reference Range Interpretation Comments Magnesium Lvl (test code = Magnesium 2.1 1.8-2.4 Lvl) [facility] HospitalEyiijciJUGIIGOKYF2119-17-77 07:58:00 Test Item Value Reference Range Interpretation Comments Platelet (test code = Platelet) 144 133-450 [facility] HospitalPicsjqtTNVGIRPVQL2325-24-70 07:58:00 Test Item Value Reference Range Interpretation Comments MCHC (test code = MCHC) 35.5 32.0-36.0 [facility] HospitalRbneyneYXEFNSJKWK2103-22-14 07:58:00 Test Item Value Reference Range Interpretation Comments MPV (test code = MPV) 8.0 7.4-10.4 [facility] HospitalAthyzzlNHTOEIXKXG6054-23-73 07:58:00 Test Item Value Reference Range Interpretation Comments RDW (test code = RDW) 15.1 11.5-14.5 [facility] CenterRsbosapKEJOMZPDES0875-09-18 07:58:00 Test Item Value Reference Range Interpretation Comments Hct (test code = Hct) 23.5 36.0-48.0 [facility]EghadqvFNGGGNPSBU6656-17-23 07:58:00 Test Item Value Reference Range Interpretation Comments Hgb (test code = Hgb) 8.3 12.0-16.0 [facility] RegionWfourszIYOJXZLYPQ6681-01-90 07:58:00 Test Item Value Reference Range Interpretation Comments MCH (test code = MCH) 32.2 pg 27.0-31.0 [facility] RegionDlyaccjVURLXWVJIF1209-65-18 07:58:00 Test Item Value Reference Range Interpretation Comments MCV (test code = MCV) 90.8 80.0-98.0 [facility] RegionSdkigfyQSACKPJHNN5021-71-33 07:58:00 Test Item Value Reference Range Interpretation Comments RBC (test code = RBC) 2.59 4.20-5.40 [facility] RegionXgckvbhZOGSDATDYM7209-21-81 07:58:00 Test Item Value Reference Range Interpretation Comments WBC (test code = WBC) 9.8 3.7-10.4 [facility] CenterPARATHYROID RVYDOLF9470-40-25 07:58:00 Test Item Value Reference Range Interpretation Comments Ca Ion WB (test code = Ca Ion WB) 0.94 1.05-1.25 [facility] CenterPARATHYROID ZTVNLLS0870-28-70 07:58:00 Test Item Value Reference Range Interpretation Comments Ca Norm WB (test code = Ca Norm WB) 0.98 1.05-1.25 [facility]IAL GDDBALJAY8492-47-09 07:58:00 Test Item Value Reference Range Interpretation Comments Hgb A1C (test code = Hgb A1C) 4.9 [facility] CenterCHEM CSTFU6251-26-00 07:58:00 Test Item Value Reference Range Interpretation Comments eGFR (test code = eGFR) 78 [facility] CenterCHEM RZAJW8889-65-38 07:58:00 Test Item Value Reference Range Interpretation Comments AST (test code = AST) 29 See_Comment [Auto mated message] The system which ge nerated this result transmit matteo reference range : <=37. The reference range was not used to interpr et this result as miesha l/abnormal. [facility] CenterPrinceton Power System,[employer] [id number] 07:58:00 Test Item Value Reference Range Interpretation Comments ALT (test code = ALT) 22 See_Comment [Auto mated message] The system which ge nerated this result transmit matteo reference range : <=65. The reference range was not used to interpr et this result as miesha l/abnormal. [facility]2018-05-23 07:58:00 Test Item Value Reference Range Interpretation Comments Alk Phos (test code = Alk Phos) 41 39-136 [facility]2018-05-23 07:58:00 Test Item Value Reference Range Interpretation Comments Bili Total (test code = Bili Total) 0.5 0.2-1.3 [facility]2018-05-23 07:58:00 Test Item Value Reference Range Interpretation Comments Calcium Lvl (test code = Calcium Lvl) 7.3 8.5-10.5 [facility]2018-05-23 07:58:00 Test Item Value Reference Range Interpretation Comments CO2 (test code = CO2) 28 24-32 [facility]2018-05-23 07:58:00 Test Item Value Reference Range Interpretation Comments Total Protein (test code = Total 5.4 6.4-8.4 Protein) [facility]2018-05-23 07:58:00 Test Item Value Reference Range Interpretation Comments Albumin Lvl (test code = Albumin Lvl) 2.7 3.5-5.0 [facility]2018-05-23 07:58:00 Test Item Value Reference Range Interpretation Comments Glucose Lvl (test code = Glucose Lvl) 98 70-99 [facility]2018-05-23 07:58:00 Test Item Value Reference Range Interpretation Comments Potassium Lvl (test code = Potassium 3.5 3.5-5.1 Lvl) [facility]2018-05-23 07:58:00 Test Item Value Reference Range Interpretation Comments Sodium Lvl (test code = Sodium Lvl) 140 135-145 [facility]2018-05-23 07:58:00 Test Item Value Reference Range Interpretation Comments Chloride Lvl (test code = Chloride Lvl) 103 95-109 [facility]2018-05-23 07:58:00 Test Item Value Reference Range Interpretation Comments BUN (test code = BUN) 16 7-22 [place] 937618-05-23 07:58:00 Test Item Value Reference Range Interpretation Comments Creatinine Lvl (test code = Creatinine 0.80 0.50-1.40 Lvl) [facility]2018-05-23 07:58:00 Test Item Value Reference Range Interpretation Comments A/G Ratio (test code = A/G Ratio) 1.0 1 0.7-1.6 [facility]2018-05-23 07:58:00 Test Item Value Reference Range Interpretation Comments Globulin (test code = Globulin) 2.7 2.7-4.2 [facility]2018-05-23 07:58:00 Test Item Value Reference Range Interpretation Comments B/C Ratio (test code = B/C Ratio) 20 1 6-25 [facility]2018-05-23 07:58:00 Test Item Value Reference Range Interpretation Comments AGAP (test code = AGAP) 12.5 10.0-20.0 [facility]2018-05-23 07:58:00 Test Item Value Reference Range Interpretation Comments Phosphorus (test code = Phosphorus) 3.5 2.5-4.5 [facility]2018-05-23 07:58:00 Test Item Value Reference Range Interpretation Comments Magnesium Lvl (test code = Magnesium 2.1 1.8-2.4 Lvl) [facility] HospitalDtntnapNKDYPRDOTH5147-61-54 07:58:00 Test Item Value Reference Range Interpretation Comments Platelet (test code = Platelet) 144 133-450 [facility] HospitalPalzxppQSUODWAKMV1735-34-03 07:58:00 Test Item Value Reference Range Interpretation Comments MCHC (test code = MCHC) 35.5 32.0-36.0 [facility] HospitalKrayrpyHVHGQQUPYR4090-68-16 07:58:00 Test Item Value Reference Range Interpretation Comments MPV (test code = MPV) 8.0 7.4-10.4 [facility] HospitalCmaxkwvCPAJWUJFAY2728-20-30 07:58:00 Test Item Value Reference Range Interpretation Comments RDW (test code = RDW) 15.1 11.5-14.5 [facility] HospitalHmwtzcfQNGHXBHSQC3248-18-86 07:58:00 Test Item Value Reference Range Interpretation Comments Hct (test code = Hct) 23.5 36.0-48.0 [facility] HospitalZdmjgvtGFXCOYVHYL9915-56-40 07:58:00 Test Item Value Reference Range Interpretation Comments Hgb (test code = Hgb) 8.3 12.0-16.0 [facility] RegionGnamdoiLGOFVLVGFF6753-48-97 07:58:00 Test Item Value Reference Range Interpretation Comments MCH (test code = MCH) 32.2 pg 27.0-31.0 [facility] HospitalOqgelryJTWUHNWTAC6809-42-57 07:58:00 Test Item Value Reference Range Interpretation Comments MCV (test code = MCV) 90.8 80.0-98.0 [facility] RegionRvvlcqyGMFBBUGVAH9885-48-27 07:58:00 Test Item Value Reference Range Interpretation Comments RBC (test code = RBC) 2.59 4.20-5.40 [facility] HospitalKytttdtRAUIFJCWUB7772-89-64 07:58:00 Test Item Value Reference Range Interpretation Comments WBC (test code = WBC) 9.8 3.7-10.4 [facility]RO[facility] [id number] 07:58:00 Test Item Value Reference Range Interpretation Comments Ca Ion WB (test code = Ca Ion WB) 0.94 1.05-1.25 [facility] HospitalROID EOJRTHE5060-68-21 07:58:00 Test Item Value Reference Range Interpretation Comments Ca Norm WB (test code = Ca Norm WB) 0.98 1.05-1.25 [facility] BKGZYTJKX0596-35-30 07:58:00 Test Item Value Reference Range Interpretation Comments Hgb A1C (test code = Hgb A1C) 4.9 [facility] [id number] 07:58:00 Test Item Value Reference Range Interpretation Comments eGFR (test code = eGFR) 78 [facility] VVMML1867-00-32 07:58:00 Test Item Value Reference Range Interpretation Comments AST (test code = AST) 29 See_Comment [Auto mated message] The system which ge nerated this result transmit matteo reference range : <=37. The reference range was not used to interpr et this result as miesha l/abnormal. [facility]2018-05-23 07:58:00 Test Item Value Reference Range Interpretation Comments ALT (test code = ALT) 22 See_Comment [Auto mated message] The system which ge nerated this result transmit matteo reference range : <=65. The reference range was not used to interpr et this result as miesha l/abnormal. [facility]2018-05-23 07:58:00 Test Item Value Reference Range Interpretation Comments Alk Phos (test code = Alk Phos) 41 39-136 [facility]2018-05-23 07:58:00 Test Item Value Reference Range Interpretation Comments Bili Total (test code = Bili Total) 0.5 0.2-1.3 [facility]2018-05-23 07:58:00 Test Item Value Reference Range Interpretation Comments Calcium Lvl (test code = Calcium Lvl) 7.3 8.5-10.5 [facility]2018-05-23 07:58:00 Test Item Value Reference Range Interpretation Comments CO2 (test code = CO2) 28 24-32 [facility]2018-05-23 07:58:00 Test Item Value Reference Range Interpretation Comments Total Protein (test code = Total 5.4 6.4-8.4 Protein) [facility]2018-05-23 07:58:00 Test Item Value Reference Range Interpretation Comments Albumin Lvl (test code = Albumin Lvl) 2.7 3.5-5.0 [facility]2018-05-23 07:58:00 Test Item Value Reference Range Interpretation Comments Glucose Lvl (test code = Glucose Lvl) 98 70-99 [facility]2018-05-23 07:58:00 Test Item Value Reference Range Interpretation Comments Potassium Lvl (test code = Potassium 3.5 3.5-5.1 Lvl) [facility]2018-05-23 07:58:00 Test Item Value Reference Range Interpretation Comments Sodium Lvl (test code = Sodium Lvl) 140 135-145 [facility]2018-05-23 07:58:00 Test Item Value Reference Range Interpretation Comments Chloride Lvl (test code = Chloride Lvl) 103 95-109 [facility]2018-05-23 07:58:00 Test Item Value Reference Range Interpretation Comments BUN (test code = BUN) 16 7-22 [facility]2018-05-23 07:58:00 Test Item Value Reference Range Interpretation Comments Creatinine Lvl (test code = Creatinine 0.80 0.50-1.40 Lvl) [facility]2018-05-23 07:58:00 Test Item Value Reference Range Interpretation Comments A/G Ratio (test code = A/G Ratio) 1.0 1 0.7-1.6 [facility]2018-05-23 07:58:00 Test Item Value Reference Range Interpretation Comments Globulin (test code = Globulin) 2.7 2.7-4.2 [facility]2018-05-23 07:58:00 Test Item Value Reference Range Interpretation Comments B/C Ratio (test code = B/C Ratio) 20 1 6-25 [place] [address]-05-23 07:58:00 Test Item Value Reference Range Interpretation Comments AGAP (test code = AGAP) 12.5 10.0-20.0 [place] 937618-05-23 07:58:00 Test Item Value Reference Range Interpretation Comments Phosphorus (test code = Phosphorus) 3.5 2.5-4.5 [place] 937618-05-23 07:58:00 Test Item Value Reference Range Interpretation Comments Magnesium Lvl (test code = Magnesium 2.1 1.8-2.4 Lvl) [place] 464978-05-23 07:58:00 Test Item Value Reference Range Interpretation Comments Platelet (test code = Platelet) 144 133-450 [facility] HospitalHwnfuouNEXCBUHYJW5123-38-01 07:58:00 Test Item Value Reference Range Interpretation Comments MCHC (test code = MCHC) 35.5 32.0-36.0 [facility] HospitalZajqgvrRPXAZAMHHP0840-46-13 07:58:00 Test Item Value Reference Range Interpretation Comments MPV (test code = MPV) 8.0 7.4-10.4 [place] [address]-05-23 07:58:00 Test Item Value Reference Range Interpretation Comments RDW (test code = RDW) 15.1 11.5-14.5 [place] [address]-05-23 07:58:00 Test Item Value Reference Range Interpretation Comments Hct (test code = Hct) 23.5 36.0-48.0 [place] 464978-05-23 07:58:00 Test Item Value Reference Range Interpretation Comments Hgb (test code = Hgb) 8.3 12.0-16.0 [place] [address]-05-23 07:58:00 Test Item Value Reference Range Interpretation Comments MCH (test code = MCH) 32.2 pg 27.0-31.0 [facility] CenterWcunnpkVWYQBMVVCQ3728-31-67 07:58:00 Test Item Value Reference Range Interpretation Comments MCV (test code = MCV) 90.8 80.0-98.0 [facility] RegionLtgmqrrUEPFNHJOQU7056-71-18 07:58:00 Test Item Value Reference Range Interpretation Comments RBC (test code = RBC) 2.59 4.20-5.40 [facility] RegionSobehjeGOAZQSSGJD9146-84-63 07:58:00 Test Item Value Reference Range Interpretation Comments WBC (test code = WBC) 9.8 3.7-10.4 [facility] CenterPARATHYROID JMBYRFL9687-88-46 07:58:00 Test Item Value Reference Range Interpretation Comments Ca Ion WB (test code = Ca Ion WB) 0.94 1.05-1.25 [facility]RO[facility] IACSOQK3513-18-34 07:58:00 Test Item Value Reference Range Interpretation Comments Ca Norm WB (test code = Ca Norm WB) 0.98 1.05-1.25 [facility] HospitalIAL JRUDQGSKV6240-91-63 07:58:00 Test Item Value Reference Range Interpretation Comments Hgb A1C (test code = Hgb A1C) 4.9 [facility] CenterPrinc[facility],[employer] [id number] 07:58:00 Test Item Value Reference Range Interpretation Comments eGFR (test code = eGFR) 78 [facility]2018-05-23 07:58:00 Test Item Value Reference Range Interpretation Comments AST (test code = AST) 29 See_Comment [Auto mated message] The system which ge nerated this result transmit matteo reference range : <=37. The reference range was not used to interpr et this result as miesha l/abnormal. [facility] [id number] 07:58:00 Test Item Value Reference Range Interpretation Comments ALT (test code = ALT) 22 See_Comment [Auto mated message] The system which ge nerated this result transmit matteo reference range : <=65. The reference range was not used to interpr et this result as miesha l/abnormal. [facility] [id number] 07:58:00 Test Item Value Reference Range Interpretation Comments Alk Phos (test code = Alk Phos) 41 39-136 [facility]2018-05-23 07:58:00 Test Item Value Reference Range Interpretation Comments Bili Total (test code = Bili Total) 0.5 0.2-1.3 [facility]2018-05-23 07:58:00 Test Item Value Reference Range Interpretation Comments Calcium Lvl (test code = Calcium Lvl) 7.3 8.5-10.5 [facility]2018-05-23 07:58:00 Test Item Value Reference Range Interpretation Comments CO2 (test code = CO2) 28 24-32 [facility]2018-05-23 07:58:00 Test Item Value Reference Range Interpretation Comments Total Protein (test code = Total 5.4 6.4-8.4 Protein) [facility]2018-05-23 07:58:00 Test Item Value Reference Range Interpretation Comments Albumin Lvl (test code = Albumin Lvl) 2.7 3.5-5.0 [facility]2018-05-23 07:58:00 Test Item Value Reference Range Interpretation Comments Glucose Lvl (test code = Glucose Lvl) 98 70-99 [facility]2018-05-23 07:58:00 Test Item Value Reference Range Interpretation Comments Potassium Lvl (test code = Potassium 3.5 3.5-5.1 Lvl) [facility]2018-05-23 07:58:00 Test Item Value Reference Range Interpretation Comments Sodium Lvl (test code = Sodium Lvl) 140 135-145 [facility]2018-05-23 07:58:00 Test Item Value Reference Range Interpretation Comments Chloride Lvl (test code = Chloride Lvl) 103 95-109 [facility]2018-05-23 07:58:00 Test Item Value Reference Range Interpretation Comments BUN (test code = BUN) 16 7-22 [facility]2018-05-23 07:58:00 Test Item Value Reference Range Interpretation Comments Creatinine Lvl (test code = Creatinine 0.80 0.50-1.40 Lvl) [facility]2018-05-23 07:58:00 Test Item Value Reference Range Interpretation Comments A/G Ratio (test code = A/G Ratio) 1.0 1 0.7-1.6 [facility]2018-05-23 07:58:00 Test Item Value Reference Range Interpretation Comments Globulin (test code = Globulin) 2.7 2.7-4.2 [facility]2018-05-23 07:58:00 Test Item Value Reference Range Interpretation Comments B/C Ratio (test code = B/C Ratio) 20 1 6-25 [facility]2018-05-23 07:58:00 Test Item Value Reference Range Interpretation Comments AGAP (test code = AGAP) 12.5 10.0-20.0 [facility]2018-05-23 07:58:00 Test Item Value Reference Range Interpretation Comments Phosphorus (test code = Phosphorus) 3.5 2.5-4.5 [facility]2018-05-23 07:58:00 Test Item Value Reference Range Interpretation Comments Magnesium Lvl (test code = Magnesium 2.1 1.8-2.4 Lvl) [facility] HospitalJcoqprvXWRHHJLWVK3150-45-52 07:58:00 Test Item Value Reference Range Interpretation Comments Platelet (test code = Platelet) 144 133-450 [facility] HospitalBjpyltvMNOBQQPWKV5190-38-13 07:58:00 Test Item Value Reference Range Interpretation Comments MCHC (test code = MCHC) 35.5 32.0-36.0 [facility] HospitalJnsmmsqSJJSPFUBIS0001-53-83 07:58:00 Test Item Value Reference Range Interpretation Comments MPV (test code = MPV) 8.0 7.4-10.4 [facility] HospitalWnhvekbYFRTWFMQKZ3215-56-24 07:58:00 Test Item Value Reference Range Interpretation Comments RDW (test code = RDW) 15.1 11.5-14.5 [facility] HospitalRlabuuwVLXTZOUCIH3557-92-12 07:58:00 Test Item Value Reference Range Interpretation Comments Hct (test code = Hct) 23.5 36.0-48.0 [facility] HospitalInovfacVZQKMFWMEC5561-30-77 07:58:00 Test Item Value Reference Range Interpretation Comments Hgb (test code = Hgb) 8.3 12.0-16.0 [facility] HospitalYdiysmjXNBMIZTAPO1919-92-28 07:58:00 Test Item Value Reference Range Interpretation Comments MCH (test code = MCH) 32.2 pg 27.0-31.0 [facility] HospitalWmnacorNPIMDONKHZ3799-17-20 07:58:00 Test Item Value Reference Range Interpretation Comments MCV (test code = MCV) 90.8 80.0-98.0 [facility] CenterHadzexiUSJPELJITV1128-80-57 07:58:00 Test Item Value Reference Range Interpretation Comments RBC (test code = RBC) 2.59 4.20-5.40 [facility] CenterRxsovuqSQLMVBUHXX6276-70-65 07:58:00 Test Item Value Reference Range Interpretation Comments WBC (test code = WBC) 9.8 3.7-10.4 [facility]ATHY[facility] [id number] 07:58:00 Test Item Value Reference Range Interpretation Comments Ca Ion WB (test code = Ca Ion WB) 0.94 1.05-1.25 [facility] CenterPARARNOT OGDEN MEDICAL CENTERROID [id number] 07:58:00 Test Item Value Reference Range Interpretation Comments Ca Norm WB (test code = Ca Norm WB) 0.98 1.05-1.25 [facility] [id number] 07:58:00 Test Item Value Reference Range Interpretation Comments Hgb A1C (test code = Hgb A1C) 4.9 [facility] [id number] 07:58:00 Test Item Value Reference Range Interpretation Comments eGFR (test code = eGFR) 78 [facility] [id number] 07:58:00 Test Item Value Reference Range Interpretation Comments AST (test code = AST) 29 See_Comment [Auto mated message] The system which ge nerated this result transmit matteo reference range : <=37. The reference range was not used to interpr et this result as miesha l/abnormal. [facility] [id number] 07:58:00 Test Item Value Reference Range Interpretation Comments ALT (test code = ALT) 22 See_Comment [Auto mated message] The system which ge nerated this result transmit matteo reference range : <=65. The reference range was not used to interpr et this result as miesha l/abnormal. [facility] [id number] 07:58:00 Test Item Value Reference Range Interpretation Comments Alk Phos (test code = Alk Phos) 41 39-136 [facility]2018-05-23 07:58:00 Test Item Value Reference Range Interpretation Comments Bili Total (test code = Bili Total) 0.5 0.2-1.3 [facility] [id number] 07:58:00 Test Item Value Reference Range Interpretation Comments Calcium Lvl (test code = Calcium Lvl) 7.3 8.5-10.5 [facility]2018-05-23 07:58:00 Test Item Value Reference Range Interpretation Comments CO2 (test code = CO2) 28 24-32 [place] [id number] 07:58:00 Test Item Value Reference Range Interpretation Comments Total Protein (test code = Total 5.4 6.4-8.4 Protein) [place] [id number] 07:58:00 Test Item Value Reference Range Interpretation Comments Albumin Lvl (test code = Albumin Lvl) 2.7 3.5-5.0 [place] 937618-05-23 07:58:00 Test Item Value Reference Range Interpretation Comments Glucose Lvl (test code = Glucose Lvl) 98 70-99 [place] 937618-05-23 07:58:00 Test Item Value Reference Range Interpretation Comments Potassium Lvl (test code = Potassium 3.5 3.5-5.1 Lvl) [place] 937618-05-23 07:58:00 Test Item Value Reference Range Interpretation Comments Sodium Lvl (test code = Sodium Lvl) 140 135-145 [place] 937618-05-23 07:58:00 Test Item Value Reference Range Interpretation Comments Chloride Lvl (test code = Chloride Lvl) 103 95-109 [facility]2018-05-23 07:58:00 Test Item Value Reference Range Interpretation Comments BUN (test code = BUN) 16 7-22 [place] 937618-05-23 07:58:00 Test Item Value Reference Range Interpretation Comments Creatinine Lvl (test code = Creatinine 0.80 0.50-1.40 Lvl) [place] 937618-05-23 07:58:00 Test Item Value Reference Range Interpretation Comments A/G Ratio (test code = A/G Ratio) 1.0 1 0.7-1.6 [place] 937618-05-23 07:58:00 Test Item Value Reference Range Interpretation Comments Globulin (test code = Globulin) 2.7 2.7-4.2 [place] 937618-05-23 07:58:00 Test Item Value Reference Range Interpretation Comments B/C Ratio (test code = B/C Ratio) 20 1 6-25 [facility]2018-05-23 07:58:00 Test Item Value Reference Range Interpretation Comments AGAP (test code = AGAP) 12.5 10.0-20.0 [facility]2018-05-23 07:58:00 Test Item Value Reference Range Interpretation Comments Phosphorus (test code = Phosphorus) 3.5 2.5-4.5 [facility]2018-05-23 07:58:00 Test Item Value Reference Range Interpretation Comments Magnesium Lvl (test code = Magnesium 2.1 1.8-2.4 Lvl) [facility]XerjnssOHRKQEZTTP3223-91-97 07:58:00 Test Item Value Reference Range Interpretation Comments Platelet (test code = Platelet) 144 133-450 [facility] HospitalLeefqyvIGETWSGKSQ0484-56-74 07:58:00 Test Item Value Reference Range Interpretation Comments MCHC (test code = MCHC) 35.5 32.0-36.0 [facility] HospitalMmeederMGLZJMUGHC9309-83-82 07:58:00 Test Item Value Reference Range Interpretation Comments MPV (test code = MPV) 8.0 7.4-10.4 [facility] HospitalTebuwqiXSKLWOYDEW3833-14-53 07:58:00 Test Item Value Reference Range Interpretation Comments RDW (test code = RDW) 15.1 11.5-14.5 [facility] HospitalHlrakvrOGYDOUQFYI1439-02-12 07:58:00 Test Item Value Reference Range Interpretation Comments Hct (test code = Hct) 23.5 36.0-48.0 [facility] HospitalEfuvmvePRYKDXJEST4931-78-90 07:58:00 Test Item Value Reference Range Interpretation Comments Hgb (test code = Hgb) 8.3 12.0-16.0 [facility] HospitalVopcvlsTOASOSATGN9369-32-43 07:58:00 Test Item Value Reference Range Interpretation Comments MCH (test code = MCH) 32.2 pg 27.0-31.0 [facility] HospitalAtoqhfsUMVZJSXHMZ8670-34-26 07:58:00 Test Item Value Reference Range Interpretation Comments MCV (test code = MCV) 90.8 80.0-98.0 [facility] HospitalNwnijaqKAHLNDOGVN9873-88-61 07:58:00 Test Item Value Reference Range Interpretation Comments RBC (test code = RBC) 2.59 4.20-5.40 [facility] CenterSmqqwfwLYUBEXKUQA2807-02-07 07:58:00 Test Item Value Reference Range Interpretation Comments WBC (test code = WBC) 9.8 3.7-10.4 [facility] [id number] 07:58:00 Test Item Value Reference Range Interpretation Comments Ca Ion WB (test code = Ca Ion WB) 0.94 1.05-1.25 [facility] [id number] 07:58:00 Test Item Value Reference Range Interpretation Comments Ca Norm WB (test code = Ca Norm WB) 0.98 1.05-1.25 [facility] OZEHEPTNN7475-50-34 07:58:00 Test Item Value Reference Range Interpretation Comments Hgb A1C (test code = Hgb A1C) 4.9 [facility]2018-05-23 07:58:00 Test Item Value Reference Range Interpretation Comments eGFR (test code = eGFR) 78 [facility]2018-05-23 07:58:00 Test Item Value Reference Range Interpretation Comments AST (test code = AST) 29 See_Comment [Auto mated message] The system which ge nerated this result transmit matteo reference range : <=37. The reference range was not used to interpr et this result as miesha l/abnormal. [facility]2018-05-23 07:58:00 Test Item Value Reference Range Interpretation Comments ALT (test code = ALT) 22 See_Comment [Auto mated message] The system which ge nerated this result transmit matteo reference range : <=65. The reference range was not used to interpr et this result as miesha l/abnormal. [facility]2018-05-23 07:58:00 Test Item Value Reference Range Interpretation Comments Alk Phos (test code = Alk Phos) 41 39-136 [facility]2018-05-23 07:58:00 Test Item Value Reference Range Interpretation Comments Bili Total (test code = Bili Total) 0.5 0.2-1.3 [facility]2018-05-23 07:58:00 Test Item Value Reference Range Interpretation Comments Calcium Lvl (test code = Calcium Lvl) 7.3 8.5-10.5 [facility]2018-05-23 07:58:00 Test Item Value Reference Range Interpretation Comments CO2 (test code = CO2) 28 24-32 [facility]2018-05-23 07:58:00 Test Item Value Reference Range Interpretation Comments Total Protein (test code = Total 5.4 6.4-8.4 Protein) [facility]2018-05-23 07:58:00 Test Item Value Reference Range Interpretation Comments Albumin Lvl (test code = Albumin Lvl) 2.7 3.5-5.0 [place] 937618-05-23 07:58:00 Test Item Value Reference Range Interpretation Comments Glucose Lvl (test code = Glucose Lvl) 98 70-99 [facility]2018-05-23 07:58:00 Test Item Value Reference Range Interpretation Comments Potassium Lvl (test code = Potassium 3.5 3.5-5.1 Lvl) [facility]2018-05-23 07:58:00 Test Item Value Reference Range Interpretation Comments Sodium Lvl (test code = Sodium Lvl) 140 135-145 [facility]2018-05-23 07:58:00 Test Item Value Reference Range Interpretation Comments Chloride Lvl (test code = Chloride Lvl) 103 95-109 [facility]2018-05-23 07:58:00 Test Item Value Reference Range Interpretation Comments BUN (test code = BUN) 16 7-22 [facility]2018-05-23 07:58:00 Test Item Value Reference Range Interpretation Comments Creatinine Lvl (test code = Creatinine 0.80 0.50-1.40 Lvl) [facility]2018-05-23 07:58:00 Test Item Value Reference Range Interpretation Comments A/G Ratio (test code = A/G Ratio) 1.0 1 0.7-1.6 [facility]2018-05-23 07:58:00 Test Item Value Reference Range Interpretation Comments Globulin (test code = Globulin) 2.7 2.7-4.2 [facility]2018-05-23 07:58:00 Test Item Value Reference Range Interpretation Comments B/C Ratio (test code = B/C Ratio) 20 1 6-25 [place] 937618-05-23 07:58:00 Test Item Value Reference Range Interpretation Comments AGAP (test code = AGAP) 12.5 10.0-20.0 [facility] [id number] 07:58:00 Test Item Value Reference Range Interpretation Comments Phosphorus (test code = Phosphorus) 3.5 2.5-4.5 [facility] [id number] 07:58:00 Test Item Value Reference Range Interpretation Comments Magnesium Lvl (test code = Magnesium 2.1 1.8-2.4 Lvl) [facility] HospitalRlhapfoWQWTQOKPBL8301-57-72 07:58:00 Test Item Value Reference Range Interpretation Comments Platelet (test code = Platelet) 144 133-450 [facility] HospitalGjctakgSQJYXBTVLY5843-04-72 07:58:00 Test Item Value Reference Range Interpretation Comments MCHC (test code = MCHC) 35.5 32.0-36.0 [facility] HospitalUdoxtfgISLWHYTICB7792-13-26 07:58:00 Test Item Value Reference Range Interpretation Comments MPV (test code = MPV) 8.0 7.4-10.4 [facility] HospitalZnhrdygAKQHGICRCL0902-98-52 07:58:00 Test Item Value Reference Range Interpretation Comments RDW (test code = RDW) 15.1 11.5-14.5 [facility] HospitalWvaiwrwJSKGNQUTTH7072-49-80 07:58:00 Test Item Value Reference Range Interpretation Comments Hct (test code = Hct) 23.5 36.0-48.0 [facility] HospitalUqgvsxgRTUSGPLVCE0712-01-27 07:58:00 Test Item Value Reference Range Interpretation Comments Hgb (test code = Hgb) 8.3 12.0-16.0 [facility] HospitalKnmjgerNLRPQABXNI2846-64-18 07:58:00 Test Item Value Reference Range Interpretation Comments MCH (test code = MCH) 32.2 pg 27.0-31.0 [facility] HospitalToilxiuDVHOBSEIZR7031-87-92 07:58:00 Test Item Value Reference Range Interpretation Comments MCV (test code = MCV) 90.8 80.0-98.0 [facility] HospitalXqfncaaWFCIQNXNZV6495-98-20 07:58:00 Test Item Value Reference Range Interpretation Comments RBC (test code = RBC) 2.59 4.20-5.40 [facility] HospitalZaqmygoHLNHEEEWFB0743-26-83 07:58:00 Test Item Value Reference Range Interpretation Comments WBC (test code = WBC) 9.8 3.7-10.4 [facility] JSXSVMO4597-15-10 07:58:00 Test Item Value Reference Range Interpretation Comments Ca Ion WB (test code = Ca Ion WB) 0.94 1.05-1.25 [facility] [id number] 07:58:00 Test Item Value Reference Range Interpretation Comments Ca Norm WB (test code = Ca Norm WB) 0.98 1.05-1.25 [facility] CGMGYZNPZ2605-91-70 07:58:00 Test Item Value Reference Range Interpretation Comments Hgb A1C (test code = Hgb A1C) 4.9 [facility]JWJLMPGWL4642-38-43 19:26:00 Test Item Value Reference Range Interpretation Comments Hgb (test code = Hgb) 9.7 12.0-16.0 [facility]JkmgvflTGKCVVNLFK8154-27-28 19:26:00 Test Item Value Reference Range Interpretation Comments Hgb (test code = Hgb) 9.7 12.0-16.0 [facility] RegionXzockcvNWZQFBKMLM0360-37-63 19:26:00 Test Item Value Reference Range Interpretation Comments Hgb (test code = Hgb) 9.7 12.0-16.0 [facility]UwzmuypTKRTEISUZG0799-30-94 19:26:00 Test Item Value Reference Range Interpretation Comments Hgb (test code = Hgb) 9.7 12.0-16.0 [facility]WvwiozxNPJSDGNBGX6090-46-92 19:26:00 Test Item Value Reference Range Interpretation Comments Hgb (test code = Hgb) 9.7 12.0-16.0 [facility] RegionTcsikoxKRSNLHWOTV7293-23-46 19:26:00 Test Item Value Reference Range Interpretation Comments Hgb (test code = Hgb) 9.7 12.0-16.0 [facility] BHBJIJK0849-86-43 10:31:00 Test Item Value Reference Range Interpretation Comments RBC product (test code Product available = RBC product) (11/15/17 5:31 AM) [facility] [id number] 10:31:00 Test Item Value Reference Range Interpretation Comments RBC product (test code Product available = RBC product) (11/15/17 5:31 AM) [facility] [id number] 10:31:00 Test Item Value Reference Range Interpretation Comments RBC product (test code Product available = RBC product) (11/15/17 5:31 AM) [facility] BANK [id number] 10:31:00 Test Item Value Reference Range Interpretation Comments RBC product (test code Product available = RBC product) (11/15/17 5:31 AM) [facility] [id number] 10:31:00 Test Item Value Reference Range Interpretation Comments RBC product (test code Product available = RBC product) (11/15/17 5:31 AM) [facility] [id number] 10:31:00 Test Item Value Reference Range Interpretation Comments RBC product (test code Product available = RBC product) (11/15/17 5:31 AM) [facility] HospitalOzihrrqOGNSAJOEYO0695-25-18 09:42:00 Test Item Value Reference Range Interpretation Comments Segs-Bands # (test code = Segs-Bands #) 6.1 1.5-8.1 [facility] HospitalOucsjcdTMZYMHLQXJ2747-55-70 09:42:00 Test Item Value Reference Range Interpretation Comments Basophils # (test code 0.0 See_Comment [Aut omated message] The = Basophils #) system which generated this result tra nsmitted reference range : <=0.2. The reference r katie was not used to int erpret this result as normal/abnormal . [facility] HospitalKbgybtgWILQAXOHHE2636-76-06 09:42:00 Test Item Value Reference Range Interpretation Comments Eosinophils # (test code 0.0 See_Comment [A utomated message] The = Eosinophils #) system wh h generated this result tra nsmitted reference range : <=0.5. The reference r ktaie was not used to int erpret this result as normal/abnormal . [facility] HospitalXusxuyjGQBRXACQWH8758-03-92 09:42:00 Test Item Value Reference Range Interpretation Comments Monocytes # (test code 0.5 See_Comment [Aut omated message] The = Monocytes #) system which generated this result tra nsmitted reference range : <=0.8. The reference r katie was not used to int erpret this result as normal/abnormal . [facility] HospitalGrhxduwXJZAZHPBYX5467-69-70 09:42:00 Test Item Value Reference Range Interpretation Comments Lymphocytes # (test code = Lymphocytes 0.9 1.0-5.5 #) [facility] HospitalKpluwfuWWDYFRLDUK3433-49-96 09:42:00 Test Item Value Reference Range Interpretation Comments Eosinophils (test code = 0.6 See_Comment [A utomated message] The Eosinophils) system which ge nerated this result tra nsmitted reference range : <=4.0. The reference r katie was not used to int erpret this result as normal/abnormal . [facility] HospitalZcpaczxVZWGAGKWHU9269-39-75 09:42:00 Test Item Value Reference Range Interpretation Comments Monocytes (test code = Monocytes) 6.4 2.0-12.0 [facility] HospitalOqpcsmpQOTNLTKEFW9938-01-50 09:42:00 Test Item Value Reference Range Interpretation Comments Segs (test code = Segs) 81.3 45.0-75.0 [facility] HospitalTuwyrmxBWKJHTFWGH5058-02-78 09:42:00 Test Item Value Reference Range Interpretation Comments Lymphocytes (test code = Lymphocytes) 11.6 20.0-40.0 [facility] HospitalUgebcrzXQEMLLJQYD3637-21-96 09:42:00 Test Item Value Reference Range Interpretation Comments Plt Morph (test code = Normal (11/15/17 4:42 Plt Morph) AM) [facility] HospitalLilnzfdIWYPZPXAIH8183-95-46 09:42:00 Test Item Value Reference Range Interpretation Comments RBC Morph (test code = Normal (11/15/17 4:42 RBC Morph) AM) [facility] HospitalGqpzzmdHUMEWYKBKQ6175-52-68 09:42:00 Test Item Value Reference Range Interpretation Comments Basophils (test code = 0.1 See_Comment [Aut omated message] The Basophils) system which ge nerated this result tra nsmitted reference range : <=1.0. The reference r katie was not used to int erpret this result as normal/abnormal . [facility] HospitalZvmtoinKWYMLWUPZM0342-32-50 09:42:00 Test Item Value Reference Range Interpretation Comments WBC (test code = WBC) 7.5 3.7-10.4 [facility] HospitalDkqexdnKJBZHFKQWM7434-22-30 09:42:00 Test Item Value Reference Range Interpretation Comments RDW (test code = RDW) 13.1 11.5-14.5 [facility] HospitalMoexqhiUNVUNVSXYV5289-45-35 09:42:00 Test Item Value Reference Range Interpretation Comments MCH (test code = MCH) 33.1 pg 27.0-31.0 [facility] HospitalFutfrogNSEHEGPGJW1607-33-72 09:42:00 Test Item Value Reference Range Interpretation Comments MCHC (test code = MCHC) 35.9 32.0-36.0 [facility] HospitalSusnylyIWOYBAUGLC9777-93-12 09:42:00 Test Item Value Reference Range Interpretation Comments MCV (test code = MCV) 92.4 80.0-98.0 [facility] HospitalHibaeayFEJGBAECUM7516-77-15 09:42:00 Test Item Value Reference Range Interpretation Comments Hct (test code = Hct) 16.7 36.0-48.0 [facility] HospitalDirkiwaNBIIUMZJEX4662-22-42 09:42:00 Test Item Value Reference Range Interpretation Comments RBC (test code = RBC) 1.81 4.20-5.40 [facility] HospitalCaaletkHVSVMQTWDS6883-21-17 09:42:00 Test Item Value Reference Range Interpretation Comments Platelet (test code = Platelet) 168 133-450 [facility] HospitalIfeydklGHDUODFXNB3100-55-43 09:42:00 Test Item Value Reference Range Interpretation Comments MPV (test code = MPV) 7.6 7.4-10.4 [facility] HospitalXwnspdpZATDUQKZUF1151-55-78 09:42:00 Test Item Value Reference Range Interpretation Comments Segs-Bands # (test code = Segs-Bands #) 6.1 1.5-8.1 [place] [id number] 09:42:00 Test Item Value Reference Range Interpretation Comments Basophils # (test code 0.0 See_Comment [Aut omated message] The = Basophils #) system which generated this result tra nsmitted reference range : <=0.2. The reference r katie was not used to int erpret this result as normal/abnormal . [facility] HospitalLnhrzhtBBWIZYHMRR6234-78-91 09:42:00 Test Item Value Reference Range Interpretation Comments Eosinophils # (test code 0.0 See_Comment [A utomated message] The = Eosinophils #) system whic h generated this result tra nsmitted reference range : <=0.5. The reference r katie was not used to int erpret this result as normal/abnormal . [facility] HospitalLnwszkrCCHXDVQVYJ4034-90-24 09:42:00 Test Item Value Reference Range Interpretation Comments Monocytes # (test code 0.5 See_Comment [Aut omated message] The = Monocytes #) system which generated this result tra nsmitted reference range : <=0.8. The reference r katie was not used to int erpret this result as normal/abnormal . [facility] HospitalEqlvrsqCJYNUPKHVD3072-18-47 09:42:00 Test Item Value Reference Range Interpretation Comments Lymphocytes # (test code = Lymphocytes 0.9 1.0-5.5 #) [facility] HospitalTufifkvGAOCWRQCAI5657-12-77 09:42:00 Test Item Value Reference Range Interpretation Comments Eosinophils (test code = 0.6 See_Comment [A utomated message] The Eosinophils) system which ge nerated this result tra nsmitted reference range : <=4.0. The reference r katie was not used to int erpret this result as normal/abnormal . [facility] HospitalGdxjoooFVOKRFIJXE3211-03-43 09:42:00 Test Item Value Reference Range Interpretation Comments Monocytes (test code = Monocytes) 6.4 2.0-12.0 [facility] HospitalOimtravHZNEUNREKQ2204-75-38 09:42:00 Test Item Value Reference Range Interpretation Comments Segs (test code = Segs) 81.3 45.0-75.0 [facility] HospitalPhocbiqXATYEKPPHX4295-07-43 09:42:00 Test Item Value Reference Range Interpretation Comments Lymphocytes (test code = Lymphocytes) 11.6 20.0-40.0 [facility] HospitalKirzthiNAOEALNULB8047-81-84 09:42:00 Test Item Value Reference Range Interpretation Comments Plt Morph (test code = Normal (11/15/17 4:42 Plt Morph) AM) [facility] HospitalBnokhrfBYCQLXZJYY1267-67-80 09:42:00 Test Item Value Reference Range Interpretation Comments RBC Morph (test code = Normal (11/15/17 4:42 RBC Morph) AM) [facility] HospitalGssktfdMFMNPQUSEI2275-13-72 09:42:00 Test Item Value Reference Range Interpretation Comments Basophils (test code = 0.1 See_Comment [Aut omated message] The Basophils) system which ge nerated this result tra nsmitted reference range : <=1.0. The reference r katie was not used to int erpret this result as normal/abnormal . [facility] HospitalDycheubZIDYKXIBZS9561-54-41 09:42:00 Test Item Value Reference Range Interpretation Comments WBC (test code = WBC) 7.5 3.7-10.4 [facility] HospitalWflpzxaBVXFAKASDE6832-10-93 09:42:00 Test Item Value Reference Range Interpretation Comments RDW (test code = RDW) 13.1 11.5-14.5 [facility] HospitalEhaftqbNQHIHRYXXM3293-62-01 09:42:00 Test Item Value Reference Range Interpretation Comments MCH (test code = MCH) 33.1 pg 27.0-31.0 [facility] HospitalEixjumrVISEZPLUNS3107-47-82 09:42:00 Test Item Value Reference Range Interpretation Comments MCHC (test code = MCHC) 35.9 32.0-36.0 [facility] HospitalLonxtpvXHOOUATKRB6265-47-98 09:42:00 Test Item Value Reference Range Interpretation Comments MCV (test code = MCV) 92.4 80.0-98.0 [facility] HospitalYeraznaAESRBEGLAF2498-03-32 09:42:00 Test Item Value Reference Range Interpretation Comments Hct (test code = Hct) 16.7 36.0-48.0 [facility] HospitalVxprbtsVDUFWLVVNJ0213-48-44 09:42:00 Test Item Value Reference Range Interpretation Comments RBC (test code = RBC) 1.81 4.20-5.40 [facility] HospitalCwjzgbzVUYKCWFJKA3290-40-27 09:42:00 Test Item Value Reference Range Interpretation Comments Platelet (test code = Platelet) 168 133-450 [facility] HospitalHupvxbbOXADSGALRN3937-31-98 09:42:00 Test Item Value Reference Range Interpretation Comments MPV (test code = MPV) 7.6 7.4-10.4 [facility] HospitalMtilzdmRLGMXZFUVB0770-31-28 09:42:00 Test Item Value Reference Range Interpretation Comments Segs-Bands # (test code = Segs-Bands #) 6.1 1.5-8.1 [facility] HospitalCnklsqaJLTXIWKCNY3261-08-92 09:42:00 Test Item Value Reference Range Interpretation Comments Basophils # (test code 0.0 See_Comment [Aut omated message] The = Basophils #) system which generated this result tra nsmitted reference range : <=0.2. The reference r katie was not used to int erpret this result as normal/abnormal . [facility] HospitalMcqmeaeMKXXTNIFXN8152-36-71 09:42:00 Test Item Value Reference Range Interpretation Comments Eosinophils # (test code 0.0 See_Comment [A utomated message] The = Eosinophils #) system whic h generated this result tra nsmitted reference range : <=0.5. The reference r katie was not used to int erpret this result as normal/abnormal . [facility] HospitalJqhshebYOXAJYJJQC4136-17-56 09:42:00 Test Item Value Reference Range Interpretation Comments Monocytes # (test code 0.5 See_Comment [Aut omated message] The = Monocytes #) system which generated this result tra nsmitted reference range : <=0.8. The reference r katie was not used to int erpret this result as normal/abnormal . [facility] HospitalSakndlxWCAZBALJQU3570-17-30 09:42:00 Test Item Value Reference Range Interpretation Comments Lymphocytes # (test code = Lymphocytes 0.9 1.0-5.5 #) [facility] HospitalDbimsjkMNGDHFPYEO8557-59-39 09:42:00 Test Item Value Reference Range Interpretation Comments Eosinophils (test code = 0.6 See_Comment [A utomated message] The Eosinophils) system which ge nerated this result tra nsmitted reference range : <=4.0. The reference r katie was not used to int erpret this result as normal/abnormal . [facility] HospitalYhrofwgQWQQORNNKA1490-71-82 09:42:00 Test Item Value Reference Range Interpretation Comments Monocytes (test code = Monocytes) 6.4 2.0-12.0 [facility] HospitalXpmrmygUMROJGFQRC9082-78-26 09:42:00 Test Item Value Reference Range Interpretation Comments Segs (test code = Segs) 81.3 45.0-75.0 [facility]UzdwsvpKUMURGPFBX1585-17-74 09:42:00 Test Item Value Reference Range Interpretation Comments Lymphocytes (test code = Lymphocytes) 11.6 20.0-40.0 [facility] HospitalZffzopxKKZMVGKASS9790-45-76 09:42:00 Test Item Value Reference Range Interpretation Comments Plt Morph (test code = Normal (11/15/17 4:42 Plt Morph) AM) [facility] HospitalWisviayTFTUXRBTCP8573-63-21 09:42:00 Test Item Value Reference Range Interpretation Comments RBC Morph (test code = Normal (11/15/17 4:42 RBC Morph) AM) [facility] HospitalFtwtvxjOOZGUUEHCK3124-48-93 09:42:00 Test Item Value Reference Range Interpretation Comments Basophils (test code = 0.1 See_Comment [Aut omated message] The Basophils) system which ge nerated this result tra nsmitted reference range : <=1.0. The reference r katie was not used to int erpret this result as normal/abnormal . [facility] HospitalEdektmqRAQNPHTCLS4255-22-44 09:42:00 Test Item Value Reference Range Interpretation Comments WBC (test code = WBC) 7.5 3.7-10.4 [facility] HospitalBkfdasvBCCYHMIUPD2939-47-51 09:42:00 Test Item Value Reference Range Interpretation Comments RDW (test code = RDW) 13.1 11.5-14.5 [facility] HospitalFhzkdnlKXFKFXSBWR2683-70-00 09:42:00 Test Item Value Reference Range Interpretation Comments MCH (test code = MCH) 33.1 pg 27.0-31.0 [facility] HospitalSzkpobxCGLEPKAOGD5864-75-84 09:42:00 Test Item Value Reference Range Interpretation Comments MCHC (test code = MCHC) 35.9 32.0-36.0 [facility] HospitalYeaqlezNNHRMBQDSC7610-97-25 09:42:00 Test Item Value Reference Range Interpretation Comments MCV (test code = MCV) 92.4 80.0-98.0 [facility] HospitalBcngudhKVRQTHUZVQ9931-00-77 09:42:00 Test Item Value Reference Range Interpretation Comments Hct (test code = Hct) 16.7 36.0-48.0 [facility] HospitalMtztwbuLQEQWUPUQC4919-03-27 09:42:00 Test Item Value Reference Range Interpretation Comments RBC (test code = RBC) 1.81 4.20-5.40 [facility] HospitalZlrbtnoNPOUBCNJRF7298-70-60 09:42:00 Test Item Value Reference Range Interpretation Comments Platelet (test code = Platelet) 168 133-450 [facility] HospitalSdizybaRGPBDMYVOK6493-13-54 09:42:00 Test Item Value Reference Range Interpretation Comments MPV (test code = MPV) 7.6 7.4-10.4 [facility] HospitalAoeqalxKWOOISYOSS1466-33-11 09:42:00 Test Item Value Reference Range Interpretation Comments Segs-Bands # (test code = Segs-Bands #) 6.1 1.5-8.1 [facility] HospitalTplfbzeRINOEBUXED2129-90-15 09:42:00 Test Item Value Reference Range Interpretation Comments Basophils # (test code 0.0 See_Comment [Aut omated message] The = Basophils #) system which generated this result tra nsmitted reference range : <=0.2. The reference r katie was not used to int erpret this result as normal/abnormal . [facility] HospitalHxhfxzaRUGBKXHPCP1600-90-46 09:42:00 Test Item Value Reference Range Interpretation Comments Eosinophils # (test code 0.0 See_Comment [A utomated message] The = Eosinophils #) system whic h generated this result tra nsmitted reference range : <=0.5. The reference r katie was not used to int erpret this result as normal/abnormal . [facility] HospitalOrvardhWOGHSLYSQQ0210-85-90 09:42:00 Test Item Value Reference Range Interpretation Comments Monocytes # (test code 0.5 See_Comment [Aut omated message] The = Monocytes #) system which generated this result tra nsmitted reference range : <=0.8. The reference r katie was not used to int erpret this result as normal/abnormal . [facility] HospitalKgvlvrgNYVKLOADDH6281-02-91 09:42:00 Test Item Value Reference Range Interpretation Comments Lymphocytes # (test code = Lymphocytes 0.9 1.0-5.5 #) [facility] HospitalCyoapogPIWASTEMRS9550-71-33 09:42:00 Test Item Value Reference Range Interpretation Comments Eosinophils (test code = 0.6 See_Comment [A utomated message] The Eosinophils) system which ge nerated this result tra nsmitted reference range : <=4.0. The reference r katie was not used to int erpret this result as normal/abnormal . [facility] HospitalKracdinHBDTGUJGLA8861-93-36 09:42:00 Test Item Value Reference Range Interpretation Comments Monocytes (test code = Monocytes) 6.4 2.0-12.0 [facility] HospitalMircezgGLSSVFWOZT0794-51-22 09:42:00 Test Item Value Reference Range Interpretation Comments Segs (test code = Segs) 81.3 45.0-75.0 [facility] HospitalWwciscvWKDUQQYPYS5169-15-68 09:42:00 Test Item Value Reference Range Interpretation Comments Lymphocytes (test code = Lymphocytes) 11.6 20.0-40.0 [facility] HospitalXmmpaynGTNTGDZLKP7833-39-46 09:42:00 Test Item Value Reference Range Interpretation Comments Plt Morph (test code = Normal (11/15/17 4:42 Plt Morph) AM) [facility] HospitalAkiculcKXEVBYSMUD9613-16-92 09:42:00 Test Item Value Reference Range Interpretation Comments RBC Morph (test code = Normal (11/15/17 4:42 RBC Morph) AM) [facility] HospitalAtpypqcYSBSBDPWYB4423-74-49 09:42:00 Test Item Value Reference Range Interpretation Comments Basophils (test code = 0.1 See_Comment [Aut omated message] The Basophils) system which ge nerated this result tra nsmitted reference range : <=1.0. The reference r katie was not used to int erpret this result as normal/abnormal . [facility] HospitalYhzzgifKKHDXJITVU6780-59-05 09:42:00 Test Item Value Reference Range Interpretation Comments WBC (test code = WBC) 7.5 3.7-10.4 [facility] HospitalXcpjysmMCWJUHNGEI1550-90-51 09:42:00 Test Item Value Reference Range Interpretation Comments RDW (test code = RDW) 13.1 11.5-14.5 [facility] HospitalLqppuaqGOAGAENJMV6018-52-43 09:42:00 Test Item Value Reference Range Interpretation Comments MCH (test code = MCH) 33.1 pg 27.0-31.0 [facility] HospitalKohrrxoYDFRDGDXYK7453-64-73 09:42:00 Test Item Value Reference Range Interpretation Comments MCHC (test code = MCHC) 35.9 32.0-36.0 [facility] HospitalQwsahabHFLTRIXZIH9854-93-65 09:42:00 Test Item Value Reference Range Interpretation Comments MCV (test code = MCV) 92.4 80.0-98.0 [facility] HospitalSuttklmKRTLMNBKTG8597-33-98 09:42:00 Test Item Value Reference Range Interpretation Comments Hct (test code = Hct) 16.7 36.0-48.0 [facility] HospitalTmbsncwZUTLJSKDKZ2239-83-68 09:42:00 Test Item Value Reference Range Interpretation Comments RBC (test code = RBC) 1.81 4.20-5.40 [facility] HospitalDribbwzPVEHSVHFAR6423-93-08 09:42:00 Test Item Value Reference Range Interpretation Comments Platelet (test code = Platelet) 168 133-450 [facility] HospitalMidwfnzDLVTJTFJXG7509-25-48 09:42:00 Test Item Value Reference Range Interpretation Comments MPV (test code = MPV) 7.6 7.4-10.4 [facility] HospitalUaaxentWQMJAUQGFH8566-95-89 09:42:00 Test Item Value Reference Range Interpretation Comments Segs-Bands # (test code = Segs-Bands #) 6.1 1.5-8.1 [facility] HospitalVqepgflZENCPNBWON4195-20-42 09:42:00 Test Item Value Reference Range Interpretation Comments Basophils # (test code 0.0 See_Comment [Aut omated message] The = Basophils #) system which generated this result tra nsmitted reference range : <=0.2. The reference r katie was not used to int erpret this result as normal/abnormal . [facility] HospitalJetrrzeEEXVFTVVZR9446-91-10 09:42:00 Test Item Value Reference Range Interpretation Comments Eosinophils # (test code 0.0 See_Comment [A utomated message] The = Eosinophils #) system whic h generated this result tra nsmitted reference range : <=0.5. The reference r katie was not used to int erpret this result as normal/abnormal . [facility] HospitalGgpkjssKZNDPHEWIK2895-53-96 09:42:00 Test Item Value Reference Range Interpretation Comments Monocytes # (test code 0.5 See_Comment [Aut omated message] The = Monocytes #) system which generated this result tra nsmitted reference range : <=0.8. The reference r katie was not used to int erpret this result as normal/abnormal . [facility] HospitalKybbzatUDYKGLVGUX1007-47-01 09:42:00 Test Item Value Reference Range Interpretation Comments Lymphocytes # (test code = Lymphocytes 0.9 1.0-5.5 #) [facility] HospitalSvtuefoRATVWAYVQL5047-79-55 09:42:00 Test Item Value Reference Range Interpretation Comments Eosinophils (test code = 0.6 See_Comment [A utomated message] The Eosinophils) system which ge nerated this result tra nsmitted reference range : <=4.0. The reference r katie was not used to int erpret this result as normal/abnormal . [facility] HospitalZrgphieUAATMBREEN3838-60-12 09:42:00 Test Item Value Reference Range Interpretation Comments Monocytes (test code = Monocytes) 6.4 2.0-12.0 [facility] HospitalTwfgofqQFKMZOLBQA2354-61-78 09:42:00 Test Item Value Reference Range Interpretation Comments Segs (test code = Segs) 81.3 45.0-75.0 [facility] HospitalBxtnexjCNVHKSMAIU9727-07-70 09:42:00 Test Item Value Reference Range Interpretation Comments Lymphocytes (test code = Lymphocytes) 11.6 20.0-40.0 [facility] HospitalWjksklrXFHOMZNFAC8034-61-52 09:42:00 Test Item Value Reference Range Interpretation Comments Plt Morph (test code = Normal (11/15/17 4:42 Plt Morph) AM) [facility] HospitalXnisbsqOBQAYXQXBT3671-33-84 09:42:00 Test Item Value Reference Range Interpretation Comments RBC Morph (test code = Normal (11/15/17 4:42 RBC Morph) AM) [facility] HospitalCtdsmbfODVLBSOLVN2646-29-88 09:42:00 Test Item Value Reference Range Interpretation Comments Basophils (test code = 0.1 See_Comment [Aut omated message] The Basophils) system which ge nerated this result tra nsmitted reference range : <=1.0. The reference r katie was not used to int erpret this result as normal/abnormal . [facility] HospitalChregybRHQZRGZSSL3264-00-90 09:42:00 Test Item Value Reference Range Interpretation Comments WBC (test code = WBC) 7.5 3.7-10.4 [facility] HospitalUcbhtxgYQRQBLWJXC3028-76-10 09:42:00 Test Item Value Reference Range Interpretation Comments RDW (test code = RDW) 13.1 11.5-14.5 [facility] HospitalIzcdvhzHQEEGWVGTD1718-20-47 09:42:00 Test Item Value Reference Range Interpretation Comments MCH (test code = MCH) 33.1 pg 27.0-31.0 [facility] HospitalIvzhmjjTUQBBSJZQG5460-27-04 09:42:00 Test Item Value Reference Range Interpretation Comments MCHC (test code = MCHC) 35.9 32.0-36.0 [facility] HospitalDiymcnvMDGUYUKISV3775-27-35 09:42:00 Test Item Value Reference Range Interpretation Comments MCV (test code = MCV) 92.4 80.0-98.0 [facility] HospitalJoczluoUTEKPNVBLE3831-80-90 09:42:00 Test Item Value Reference Range Interpretation Comments Hct (test code = Hct) 16.7 36.0-48.0 [facility] HospitalDqogxctKMOTILYXNB6985-39-66 09:42:00 Test Item Value Reference Range Interpretation Comments RBC (test code = RBC) 1.81 4.20-5.40 [facility] HospitalPwyipoeBIXDHTFRZC2954-88-70 09:42:00 Test Item Value Reference Range Interpretation Comments Platelet (test code = Platelet) 168 133-450 [facility] HospitalEoeyabiINYURGHVNP6136-64-99 09:42:00 Test Item Value Reference Range Interpretation Comments MPV (test code = MPV) 7.6 7.4-10.4 [facility] HospitalTgqzaduSBMDATUXUL8950-41-89 09:42:00 Test Item Value Reference Range Interpretation Comments Segs-Bands # (test code = Segs-Bands #) 6.1 1.5-8.1 [facility] HospitalBiawufeQCIMYFCAWI0051-36-00 09:42:00 Test Item Value Reference Range Interpretation Comments Basophils # (test code 0.0 See_Comment [Aut omated message] The = Basophils #) system which generated this result tra nsmitted reference range : <=0.2. The reference r katie was not used to int erpret this result as normal/abnormal . [facility] HospitalPhmgrgtKIXHJJHBKW8348-31-09 09:42:00 Test Item Value Reference Range Interpretation Comments Eosinophils # (test code 0.0 See_Comment [A utomated message] The = Eosinophils #) system whic h generated this result tra nsmitted reference range : <=0.5. The reference r katie was not used to int erpret this result as normal/abnormal . [facility] HospitalOavucaaSAVUYWZKMZ2692-43-31 09:42:00 Test Item Value Reference Range Interpretation Comments Monocytes # (test code 0.5 See_Comment [Aut omated message] The = Monocytes #) system which generated this result tra nsmitted reference range : <=0.8. The reference r katie was not used to int erpret this result as normal/abnormal . [facility] HospitalBwlttgwNOJXKFNWQZ8294-97-80 09:42:00 Test Item Value Reference Range Interpretation Comments Lymphocytes # (test code = Lymphocytes 0.9 1.0-5.5 #) [facility] HospitalGocsyjpREGDCJIXHO1448-47-09 09:42:00 Test Item Value Reference Range Interpretation Comments Eosinophils (test code = 0.6 See_Comment [A utomated message] The Eosinophils) system which ge nerated this result tra nsmitted reference range : <=4.0. The reference r katie was not used to int erpret this result as normal/abnormal . [facility] HospitalEnjaoviOXGKEPSBAY4191-31-72 09:42:00 Test Item Value Reference Range Interpretation Comments Monocytes (test code = Monocytes) 6.4 2.0-12.0 [facility] HospitalZizguxxOYOQNLNMQG6751-94-16 09:42:00 Test Item Value Reference Range Interpretation Comments Segs (test code = Segs) 81.3 45.0-75.0 [facility] HospitalJikmipsVJWZIPADRJ9930-42-14 09:42:00 Test Item Value Reference Range Interpretation Comments Lymphocytes (test code = Lymphocytes) 11.6 20.0-40.0 [facility] HospitalVftooicCCYIWHQTIJ9337-67-95 09:42:00 Test Item Value Reference Range Interpretation Comments Plt Morph (test code = Normal (11/15/17 4:42 Plt Morph) AM) [facility] HospitalRavvvctFCEBIISMEP4143-22-98 09:42:00 Test Item Value Reference Range Interpretation Comments RBC Morph (test code = Normal (11/15/17 4:42 RBC Morph) AM) [facility] HospitalDjjnbjhKZTUFWZTUD3325-57-43 09:42:00 Test Item Value Reference Range Interpretation Comments Basophils (test code = 0.1 See_Comment [Aut omated message] The Basophils) system which ge nerated this result tra nsmitted reference range : <=1.0. The reference r katie was not used to int erpret this result as normal/abnormal . [facility] HospitalWtimpzuIPPKBGVPKF8104-78-47 09:42:00 Test Item Value Reference Range Interpretation Comments WBC (test code = WBC) 7.5 3.7-10.4 [facility] HospitalFuuvkutVUODRPNAWY9265-73-50 09:42:00 Test Item Value Reference Range Interpretation Comments RDW (test code = RDW) 13.1 11.5-14.5 [facility] HospitalQdrysvcUDJVOZRDRF3517-26-64 09:42:00 Test Item Value Reference Range Interpretation Comments MCH (test code = MCH) 33.1 pg 27.0-31.0 [facility] HospitalFgaqsjnRCSOFESYVN9468-49-57 09:42:00 Test Item Value Reference Range Interpretation Comments MCHC (test code = MCHC) 35.9 32.0-36.0 [facility] HospitalHxxamsiQTUZJWQPNX4490-73-34 09:42:00 Test Item Value Reference Range Interpretation Comments MCV (test code = MCV) 92.4 80.0-98.0 [facility] HospitalHrwqtvhHQGNANSDPY1281-03-90 09:42:00 Test Item Value Reference Range Interpretation Comments Hct (test code = Hct) 16.7 36.0-48.0 [facility] HospitalHtcxbwfIRASKTFFVA7776-70-68 09:42:00 Test Item Value Reference Range Interpretation Comments RBC (test code = RBC) 1.81 4.20-5.40 [facility] HospitalRjvmkamIZJTVMHSPH8715-90-55 09:42:00 Test Item Value Reference Range Interpretation Comments Platelet (test code = Platelet) 168 133-450 [facility] HospitalPzumgpnNCVJIVOYJT0378-67-41 09:42:00 Test Item Value Reference Range Interpretation Comments MPV (test code = MPV) 7.6 7.4-10.4 [facility]2018-05-22 07:50:00 Test Item Value Reference Range Interpretation Comments Phosphorus (test code = Phosphorus) 0.6 2.5-4.5 [place] 937618-05-22 07:50:00 Test Item Value Reference Range Interpretation Comments Magnesium Lvl (test code = Magnesium 2.8 1.8-2.4 Lvl) [facility]2018-05-22 07:50:00 Test Item Value Reference Range Interpretation Comments eGFR (test code = eGFR) 48 [facility]2018-05-22 07:50:00 Test Item Value Reference Range Interpretation Comments AGAP (test code = AGAP) 15.3 10.0-20.0 [facility]2018-05-22 07:50:00 Test Item Value Reference Range Interpretation Comments Calcium Lvl (test code = Calcium Lvl) 9.1 8.5-10.5 [facility]2018-05-22 07:50:00 Test Item Value Reference Range Interpretation Comments Creatinine Lvl (test code = Creatinine 1.20 0.50-1.40 Lvl) [facility]2018-05-22 07:50:00 Test Item Value Reference Range Interpretation Comments Sodium Lvl (test code = Sodium Lvl) 143 135-145 [facility]2018-05-22 07:50:00 Test Item Value Reference Range Interpretation Comments Chloride Lvl (test code = Chloride Lvl) 108 95-109 [facility]2018-05-22 07:50:00 Test Item Value Reference Range Interpretation Comments Potassium Lvl (test code = Potassium 3.3 3.5-5.1 Lvl) [facility]2018-05-22 07:50:00 Test Item Value Reference Range Interpretation Comments CO2 (test code = CO2) 23 24-32 [facility]2018-05-22 07:50:00 Test Item Value Reference Range Interpretation Comments BUN (test code = BUN) 18 7-22 [facility] VYJCQ4700-74-11 07:50:00 Test Item Value Reference Range Interpretation Comments Glucose Lvl (test code = Glucose Lvl) 114 70-99 [facility]VLKRWBJNQ0675-49-69 07:50:00 Test Item Value Reference Range Interpretation Comments Fibrinogen Lvl (test code = Fibrinogen 397 230-510 Lvl) [facility] HospitalTqlqewhATCARJMZIV8419-46-50 07:50:00 Test Item Value Reference Range Interpretation Comments PT (test code = PT) 15.7 s 12.0-14.7 [facility] HospitalDjelepfDAVCIBGVLI2635-97-96 07:50:00 Test Item Value Reference Range Interpretation Comments INR (test code = INR) 1.24 1 0.85-1.17 [facility] HospitalAllolrdLJEVEAJQUY0459-74-63 07:50:00 Test Item Value Reference Range Interpretation Comments PTT (test code = PTT) 30.3 s 22.9-35.8 [facility] DAOJEIE3255-19-50 07:50:00 Test Item Value Reference Range Interpretation Comments Ca Norm WB (test code = Ca Norm WB) 1.22 1.05-1.25 [facility] EQVUWKS9343-97-86 07:50:00 Test Item Value Reference Range Interpretation Comments Ca Ion WB (test code = Ca Ion WB) 1.13 1.05-1.25 [facility] CQZBEBMZW9243-81-78 07:50:00 Test Item Value Reference Range Interpretation Comments Hgb A1C (test code = Hgb A1C) <3.5 % [facility] RNRZZ1673-57-34 07:50:00 Test Item Value Reference Range Interpretation Comments Phosphorus (test code = Phosphorus) 0.6 2.5-4.5 [facility] KSDAK9776-28-68 07:50:00 Test Item Value Reference Range Interpretation Comments Magnesium Lvl (test code = Magnesium 2.8 1.8-2.4 Lvl) [facility]2018-05-22 07:50:00 Test Item Value Reference Range Interpretation Comments eGFR (test code = eGFR) 48 [facility]2018-05-22 07:50:00 Test Item Value Reference Range Interpretation Comments AGAP (test code = AGAP) 15.3 10.0-20.0 [facility]2018-05-22 07:50:00 Test Item Value Reference Range Interpretation Comments Calcium Lvl (test code = Calcium Lvl) 9.1 8.5-10.5 [facility]2018-05-22 07:50:00 Test Item Value Reference Range Interpretation Comments Creatinine Lvl (test code = Creatinine 1.20 0.50-1.40 Lvl) [facility]2018-05-22 07:50:00 Test Item Value Reference Range Interpretation Comments Sodium Lvl (test code = Sodium Lvl) 143 135-145 [facility]2018-05-22 07:50:00 Test Item Value Reference Range Interpretation Comments Chloride Lvl (test code = Chloride Lvl) 108 95-109 [facility]2018-05-22 07:50:00 Test Item Value Reference Range Interpretation Comments Potassium Lvl (test code = Potassium 3.3 3.5-5.1 Lvl) [facility]2018-05-22 07:50:00 Test Item Value Reference Range Interpretation Comments CO2 (test code = CO2) 23 24-32 [facility]2018-05-22 07:50:00 Test Item Value Reference Range Interpretation Comments BUN (test code = BUN) 18 7-22 [facility]2018-05-22 07:50:00 Test Item Value Reference Range Interpretation Comments Glucose Lvl (test code = Glucose Lvl) 114 70-99 [facility] HospitalAtfesefUWVJGZDPLX7525-19-84 07:50:00 Test Item Value Reference Range Interpretation Comments Fibrinogen Lvl (test code = Fibrinogen 397 230-510 Lvl) [facility] HospitalDgaxjrwQCVNIJYQBU3354-34-34 07:50:00 Test Item Value Reference Range Interpretation Comments PT (test code = PT) 15.7 s 12.0-14.7 [facility] HospitalMxopyspMSBMDIYYBH7800-55-25 07:50:00 Test Item Value Reference Range Interpretation Comments INR (test code = INR) 1.24 1 0.85-1.17 [facility] HospitalXugoezfYPIYCNPKFB0895-57-13 07:50:00 Test Item Value Reference Range Interpretation Comments PTT (test code = PTT) 30.3 s 22.9-35.8 [facility]PAR[facility] AQKOHFQ2363-53-61 07:50:00 Test Item Value Reference Range Interpretation Comments Ca Norm WB (test code = Ca Norm WB) 1.22 1.05-1.25 [facility] CenterPARATHYROID KZWLDWB6463-87-51 07:50:00 Test Item Value Reference Range Interpretation Comments Ca Ion WB (test code = Ca Ion WB) 1.13 1.05-1.25 [facility] ZOHCQSVGP3930-23-88 07:50:00 Test Item Value Reference Range Interpretation Comments Hgb A1C (test code = Hgb A1C) <3.5 % [facility]2018-05-22 07:50:00 Test Item Value Reference Range Interpretation Comments Phosphorus (test code = Phosphorus) 0.6 2.5-4.5 [facility]2018-05-22 07:50:00 Test Item Value Reference Range Interpretation Comments Magnesium Lvl (test code = Magnesium 2.8 1.8-2.4 Lvl) [facility]2018-05-22 07:50:00 Test Item Value Reference Range Interpretation Comments eGFR (test code = eGFR) 48 [facility]2018-05-22 07:50:00 Test Item Value Reference Range Interpretation Comments AGAP (test code = AGAP) 15.3 10.0-20.0 [facility]2018-05-22 07:50:00 Test Item Value Reference Range Interpretation Comments Calcium Lvl (test code = Calcium Lvl) 9.1 8.5-10.5 [facility]2018-05-22 07:50:00 Test Item Value Reference Range Interpretation Comments Creatinine Lvl (test code = Creatinine 1.20 0.50-1.40 Lvl) [facility]2018-05-22 07:50:00 Test Item Value Reference Range Interpretation Comments Sodium Lvl (test code = Sodium Lvl) 143 135-145 [facility]2018-05-22 07:50:00 Test Item Value Reference Range Interpretation Comments Chloride Lvl (test code = Chloride Lvl) 108 95-109 [facility]2018-05-22 07:50:00 Test Item Value Reference Range Interpretation Comments Potassium Lvl (test code = Potassium 3.3 3.5-5.1 Lvl) [facility]2018-05-22 07:50:00 Test Item Value Reference Range Interpretation Comments CO2 (test code = CO2) 23 24-32 [facility] [id number] 07:50:00 Test Item Value Reference Range Interpretation Comments BUN (test code = BUN) 18 7-22 [facility] [id number] 07:50:00 Test Item Value Reference Range Interpretation Comments Glucose Lvl (test code = Glucose Lvl) 114 70-99 [facility]AveylxgBIABJIOXDX3831-88-91 07:50:00 Test Item Value Reference Range Interpretation Comments Fibrinogen Lvl (test code = Fibrinogen 397 230-510 Lvl) [facility] RegionVznceokHQNYIWUEVA9408-40-15 07:50:00 Test Item Value Reference Range Interpretation Comments PT (test code = PT) 15.7 s 12.0-14.7 [facility] HospitalLwnfvcwLQSZSFFNRD8536-63-33 07:50:00 Test Item Value Reference Range Interpretation Comments INR (test code = INR) 1.24 1 0.85-1.17 [facility] HospitalDtrvoeiQJHXLWIJVN7164-03-55 07:50:00 Test Item Value Reference Range Interpretation Comments PTT (test code = PTT) 30.3 s 22.9-35.8 [facility] CenterPARATHYROID YTOOKXS2176-11-58 07:50:00 Test Item Value Reference Range Interpretation Comments Ca Norm WB (test code = Ca Norm WB) 1.22 1.05-1.25 [facility]RO[facility] [id number] 07:50:00 Test Item Value Reference Range Interpretation Comments Ca Ion WB (test code = Ca Ion WB) 1.13 1.05-1.25 [facility] [facility] [id number] 07:50:00 Test Item Value Reference Range Interpretation Comments Hgb A1C (test code = Hgb A1C) <3.5 % [facility] [id number] 07:50:00 Test Item Value Reference Range Interpretation Comments Phosphorus (test code = Phosphorus) 0.6 2.5-4.5 [facility] [id number] 07:50:00 Test Item Value Reference Range Interpretation Comments Magnesium Lvl (test code = Magnesium 2.8 1.8-2.4 Lvl) [facility]2018-05-22 07:50:00 Test Item Value Reference Range Interpretation Comments eGFR (test code = eGFR) 48 [facility] [id number] 07:50:00 Test Item Value Reference Range Interpretation Comments AGAP (test code = AGAP) 15.3 10.0-20.0 [facility]2018-05-22 07:50:00 Test Item Value Reference Range Interpretation Comments Calcium Lvl (test code = Calcium Lvl) 9.1 8.5-10.5 [facility]2018-05-22 07:50:00 Test Item Value Reference Range Interpretation Comments Creatinine Lvl (test code = Creatinine 1.20 0.50-1.40 Lvl) [facility]2018-05-22 07:50:00 Test Item Value Reference Range Interpretation Comments Sodium Lvl (test code = Sodium Lvl) 143 135-145 [facility]2018-05-22 07:50:00 Test Item Value Reference Range Interpretation Comments Chloride Lvl (test code = Chloride Lvl) 108 95-109 [facility]2018-05-22 07:50:00 Test Item Value Reference Range Interpretation Comments Potassium Lvl (test code = Potassium 3.3 3.5-5.1 Lvl) [place] [id number] 07:50:00 Test Item Value Reference Range Interpretation Comments CO2 (test code = CO2) 23 24-32 [place] [id number] 07:50:00 Test Item Value Reference Range Interpretation Comments BUN (test code = BUN) 18 7-22 [place] 937618-05-22 07:50:00 Test Item Value Reference Range Interpretation Comments Glucose Lvl (test code = Glucose Lvl) 114 70-99 [facility]gcryYVKJOESKFH1811-26-09 07:50:00 Test Item Value Reference Range Interpretation Comments Fibrinogen Lvl (test code = Fibrinogen 397 230-510 Lvl) [facility] HospitalKoxptdnBUGAUFAMKF7182-49-57 07:50:00 Test Item Value Reference Range Interpretation Comments PT (test code = PT) 15.7 s 12.0-14.7 [place] [address]-05-22 07:50:00 Test Item Value Reference Range Interpretation Comments INR (test code = INR) 1.24 1 0.85-1.17 [place] [id number] 07:50:00 Test Item Value Reference Range Interpretation Comments PTT (test code = PTT) 30.3 s 22.9-35.8 [facility] [id number] 07:50:00 Test Item Value Reference Range Interpretation Comments Ca Norm WB (test code = Ca Norm WB) 1.22 1.05-1.25 [facility] [id number] 07:50:00 Test Item Value Reference Range Interpretation Comments Ca Ion WB (test code = Ca Ion WB) 1.13 1.05-1.25 [facility] HospitalIAL [id number] 07:50:00 Test Item Value Reference Range Interpretation Comments Hgb A1C (test code = Hgb A1C) <3.5 % [facility]2018-05-22 07:50:00 Test Item Value Reference Range Interpretation Comments Phosphorus (test code = Phosphorus) 0.6 2.5-4.5 [facility]2018-05-22 07:50:00 Test Item Value Reference Range Interpretation Comments Magnesium Lvl (test code = Magnesium 2.8 1.8-2.4 Lvl) [facility]2018-05-22 07:50:00 Test Item Value Reference Range Interpretation Comments eGFR (test code = eGFR) 48 [facility]2018-05-22 07:50:00 Test Item Value Reference Range Interpretation Comments AGAP (test code = AGAP) 15.3 10.0-20.0 [facility]2018-05-22 07:50:00 Test Item Value Reference Range Interpretation Comments Calcium Lvl (test code = Calcium Lvl) 9.1 8.5-10.5 [facility]2018-05-22 07:50:00 Test Item Value Reference Range Interpretation Comments Creatinine Lvl (test code = Creatinine 1.20 0.50-1.40 Lvl) [facility]2018-05-22 07:50:00 Test Item Value Reference Range Interpretation Comments Sodium Lvl (test code = Sodium Lvl) 143 135-145 [facility]2018-05-22 07:50:00 Test Item Value Reference Range Interpretation Comments Chloride Lvl (test code = Chloride Lvl) 108 95-109 [facility]2018-05-22 07:50:00 Test Item Value Reference Range Interpretation Comments Potassium Lvl (test code = Potassium 3.3 3.5-5.1 Lvl) [facility]2018-05-22 07:50:00 Test Item Value Reference Range Interpretation Comments CO2 (test code = CO2) 23 24-32 [facility] [id number] 07:50:00 Test Item Value Reference Range Interpretation Comments BUN (test code = BUN) 18 7-22 [facility] [id number] 07:50:00 Test Item Value Reference Range Interpretation Comments Glucose Lvl (test code = Glucose Lvl) 114 70-99 [facility] HospitalDcetmmsOPDKTVHCWJ0059-73-78 07:50:00 Test Item Value Reference Range Interpretation Comments Fibrinogen Lvl (test code = Fibrinogen 397 230-510 Lvl) [facility] HospitalWpejrteJLQVNBHOTC5053-40-88 07:50:00 Test Item Value Reference Range Interpretation Comments PT (test code = PT) 15.7 s 12.0-14.7 [facility] HospitalHwmeuonASGQNXPODR6212-02-51 07:50:00 Test Item Value Reference Range Interpretation Comments INR (test code = INR) 1.24 1 0.85-1.17 [facility] HospitalYoaooetITFPPKKFUP1367-05-22 07:50:00 Test Item Value Reference Range Interpretation Comments PTT (test code = PTT) 30.3 s 22.9-35.8 [facility]PAR[facility] [id number] 07:50:00 Test Item Value Reference Range Interpretation Comments Ca Norm WB (test code = Ca Norm WB) 1.22 1.05-1.25 [facility]ATH[facility] [id number] 07:50:00 Test Item Value Reference Range Interpretation Comments Ca Ion WB (test code = Ca Ion WB) 1.13 1.05-1.25 [facility] HospitalIAL [id number] 07:50:00 Test Item Value Reference Range Interpretation Comments Hgb A1C (test code = Hgb A1C) <3.5 % [facility] [id number] 07:50:00 Test Item Value Reference Range Interpretation Comments Phosphorus (test code = Phosphorus) 0.6 2.5-4.5 [facility]2018-05-22 07:50:00 Test Item Value Reference Range Interpretation Comments Magnesium Lvl (test code = Magnesium 2.8 1.8-2.4 Lvl) [facility]2018-05-22 07:50:00 Test Item Value Reference Range Interpretation Comments eGFR (test code = eGFR) 48 [facility]2018-05-22 07:50:00 Test Item Value Reference Range Interpretation Comments AGAP (test code = AGAP) 15.3 10.0-20.0 [place] 937618-05-22 07:50:00 Test Item Value Reference Range Interpretation Comments Calcium Lvl (test code = Calcium Lvl) 9.1 8.5-10.5 [facility]2018-05-22 07:50:00 Test Item Value Reference Range Interpretation Comments Creatinine Lvl (test code = Creatinine 1.20 0.50-1.40 Lvl) [facility]2018-05-22 07:50:00 Test Item Value Reference Range Interpretation Comments Sodium Lvl (test code = Sodium Lvl) 143 135-145 [place] 937618-05-22 07:50:00 Test Item Value Reference Range Interpretation Comments Chloride Lvl (test code = Chloride Lvl) 108 95-109 [facility]2018-05-22 07:50:00 Test Item Value Reference Range Interpretation Comments Potassium Lvl (test code = Potassium 3.3 3.5-5.1 Lvl) [facility]2018-05-22 07:50:00 Test Item Value Reference Range Interpretation Comments CO2 (test code = CO2) 23 24-32 [facility]2018-05-22 07:50:00 Test Item Value Reference Range Interpretation Comments BUN (test code = BUN) 18 7-22 [facility]2018-05-22 07:50:00 Test Item Value Reference Range Interpretation Comments Glucose Lvl (test code = Glucose Lvl) 114 70-99 [facility] HospitalGugkfjvQYPUSDFHYZ6488-52-87 07:50:00 Test Item Value Reference Range Interpretation Comments Fibrinogen Lvl (test code = Fibrinogen 397 230-510 Lvl) [facility] HospitalOoalzbqDVSQVSGMNS6949-05-05 07:50:00 Test Item Value Reference Range Interpretation Comments PT (test code = PT) 15.7 s 12.0-14.7 [facility] HospitalMaweletVWXHXPTAEF1003-93-04 07:50:00 Test Item Value Reference Range Interpretation Comments INR (test code = INR) 1.24 1 0.85-1.[address]05-22 07:50:00 Test Item Value Reference Range Interpretation Comments PTT (test code = PTT) 30.3 s 22.9-35.8 [facility]annPARATHYROID [id number] 07:50:00 Test Item Value Reference Range Interpretation Comments Ca Norm WB (test code = Ca Norm WB) 1.22 1.05-1.25 [facility] HospitalannPARATHYROID [id number] 07:50:00 Test Item Value Reference Range Interpretation Comments Ca Ion WB (test code = Ca Ion WB) 1.13 1.05-1.25 [facility] HospitalIAL [id number] 07:50:00 Test Item Value Reference Range Interpretation Comments Hgb A1C (test code = Hgb A1C) <3.5 % [facility] [id number] 04:43:00 Test Item Value Reference Range Interpretation Comments Cryo product (test Product available code = Cryo product) 1(11/14/17 11:43 PM) [facility] [id number] 04:43:00 Test Item Value Reference Range Interpretation Comments Cryo product (test Product available code = Cryo product) 1(11/14/17 11:43 PM) [facility] [id number] 04:43:00 Test Item Value Reference Range Interpretation Comments Cryo product (test Product available code = Cryo product) 1(11/14/17 11:43 PM) [facility] [id number] 04:43:00 Test Item Value Reference Range Interpretation Comments Cryo product (test Product available code = Cryo product) 1(11/14/17 11:43 PM) [facility] [id number] 04:43:00 Test Item Value Reference Range Interpretation Comments Cryo product (test Product available code = Cryo product) 1(11/14/17 11:43 PM) [facility] [id number] 04:43:00 Test Item Value Reference Range Interpretation Comments Cryo product (test Product available code = Cryo product) 1(11/14/17 11:43 PM) [facility] [id number] 01:57:00 Test Item Value Reference Range Interpretation Comments FFP product (test code Product available = FFP product) 2(11/14/17 8:57 PM) [facility] [id number] 01:57:00 Test Item Value Reference Range Interpretation Comments FFP product (test code Product available = FFP product) 2(11/14/17 8:57 PM) [facility] [id number] 01:57:00 Test Item Value Reference Range Interpretation Comments FFP product (test code Product available = FFP product) 2(11/14/17 8:57 PM) [facility] [id number] 01:57:00 Test Item Value Reference Range Interpretation Comments FFP product (test code Product available = FFP product) 2(11/14/17 8:57 PM) [facility] [id number] 01:57:00 Test Item Value Reference Range Interpretation Comments FFP product (test code Product available = FFP product) 2(11/14/17 8:57 PM) [facility] [id number] 01:57:00 Test Item Value Reference Range Interpretation Comments FFP product (test code Product available = FFP product) 2(11/14/17 8:57 PM) [facility]2018-05-22 01:21:00 Test Item Value Reference Range Interpretation Comments Lactic Acid Lvl (test code = Lactic 1.8 0.5-2.2 Acid Lvl) [facility] H[id number] 01:21:00 Test Item Value Reference Range Interpretation Comments Fibrinogen Lvl (test code = Fibrinogen 136 230-510 Lvl) [facility]2018-05-22 01:21:00 Test Item Value Reference Range Interpretation Comments Lactic Acid Lvl (test code = Lactic 1.8 0.5-2.2 Acid Lvl) [facility] HospitalAokkwayPBRPRFGFRB7220-97-40 01:21:00 Test Item Value Reference Range Interpretation Comments Fibrinogen Lvl (test code = Fibrinogen 136 230-510 Lvl) [facility] [id number] 01:21:00 Test Item Value Reference Range Interpretation Comments Lactic Acid Lvl (test code = Lactic 1.8 0.5-2.2 Acid Lvl) [facility] HospitalNoxgtteBBQHOXQJRZ0888-09-08 01:21:00 Test Item Value Reference Range Interpretation Comments Fibrinogen Lvl (test code = Fibrinogen 136 230-510 Lvl) [facility]2018-05-22 01:21:00 Test Item Value Reference Range Interpretation Comments Lactic Acid Lvl (test code = Lactic 1.8 0.5-2.2 Acid Lvl) [facility] HospitalRniisyzNNBPNMZSZX0603-96-64 01:21:00 Test Item Value Reference Range Interpretation Comments Fibrinogen Lvl (test code = Fibrinogen 136 230-510 Lvl) [facility]2018-05-22 01:21:00 Test Item Value Reference Range Interpretation Comments Lactic Acid Lvl (test code = Lactic 1.8 0.5-2.2 Acid Lvl) [facility] HospitalGusyofjVYHTRXMFWJ7128-19-33 01:21:00 Test Item Value Reference Range Interpretation Comments Fibrinogen Lvl (test code = Fibrinogen 136 230-510 Lvl) [facility]2018-05-22 01:21:00 Test Item Value Reference Range Interpretation Comments Lactic Acid Lvl (test code = Lactic 1.8 0.5-2.2 Acid Lvl) [facility] HospitalSptalnzCQICZNSMDD7533-72-96 01:21:00 Test Item Value Reference Range Interpretation Comments Fibrinogen Lvl (test code = Fibrinogen 136 230-510 Lvl) [facility]2018-05-22 00:52:00 Test Item Value Reference Range Interpretation Comments Phosphorus (test code = Phosphorus) 3.4 2.5-4.5 [facility]2018-05-22 00:52:00 Test Item Value Reference Range Interpretation Comments Magnesium Lvl (test code = Magnesium 2.1 1.8-2.4 Lvl) [facility]2018-05-22 00:52:00 Test Item Value Reference Range Interpretation Comments Phosphorus (test code = Phosphorus) 3.4 2.5-4.5 [facility]2018-05-22 00:52:00 Test Item Value Reference Range Interpretation Comments Magnesium Lvl (test code = Magnesium 2.1 1.8-2.4 Lvl) [facility]2018-05-22 00:52:00 Test Item Value Reference Range Interpretation Comments Phosphorus (test code = Phosphorus) 3.4 2.5-4.5 [facility]2018-05-22 00:52:00 Test Item Value Reference Range Interpretation Comments Magnesium Lvl (test code = Magnesium 2.1 1.8-2.4 Lvl) [facility]2018-05-22 00:52:00 Test Item Value Reference Range Interpretation Comments Phosphorus (test code = Phosphorus) 3.4 2.5-4.5 [facility]2018-05-22 00:52:00 Test Item Value Reference Range Interpretation Comments Magnesium Lvl (test code = Magnesium 2.1 1.8-2.4 Lvl) [facility]2018-05-22 00:52:00 Test Item Value Reference Range Interpretation Comments Phosphorus (test code = Phosphorus) 3.4 2.5-4.5 [facility]2018-05-22 00:52:00 Test Item Value Reference Range Interpretation Comments Magnesium Lvl (test code = Magnesium 2.1 1.8-2.4 Lvl) [facility]2018-05-22 00:52:00 Test Item Value Reference Range Interpretation Comments Phosphorus (test code = Phosphorus) 3.4 2.5-4.5 [facility]2018-05-22 00:52:00 Test Item Value Reference Range Interpretation Comments Magnesium Lvl (test code = Magnesium 2.1 1.8-2.4 Lvl) [facility]BACT[facility] - [id number] 00:50:00 Test Item Value Reference Range Interpretation Comments MRSA by PCR (test Negative (11/14/17 7:50 code = MRSA by PCR) PM) [facility]2018-05-22 00:50:00 Test Item Value Reference Range Interpretation Comments eGFR (test code = eGFR) 78 [facility]2018-05-22 00:50:00 Test Item Value Reference Range Interpretation Comments Chloride Lvl (test code = Chloride Lvl) 109 95-109 [facility]2018-05-22 00:50:00 Test Item Value Reference Range Interpretation Comments Potassium Lvl (test code = Potassium 5.2 3.5-5.1 Lvl) [facility]2018-05-22 00:50:00 Test Item Value Reference Range Interpretation Comments CO2 (test code = CO2) 23 24-32 [facility]2018-05-22 00:50:00 Test Item Value Reference Range Interpretation Comments Calcium Lvl (test code = Calcium Lvl) 7.5 8.5-10.5 [facility]2018-05-22 00:50:00 Test Item Value Reference Range Interpretation Comments Glucose Lvl (test code = Glucose Lvl) 209 70-99 [facility]2018-05-22 00:50:00 Test Item Value Reference Range Interpretation Comments Sodium Lvl (test code = Sodium Lvl) 141 135-145 [facility]2018-05-22 00:50:00 Test Item Value Reference Range Interpretation Comments Creatinine Lvl (test code = Creatinine 0.80 0.50-1.40 Lvl) [facility]2018-05-22 00:50:00 Test Item Value Reference Range Interpretation Comments BUN (test code = BUN) 13 7-22 [facility]2018-05-22 00:50:00 Test Item Value Reference Range Interpretation Comments AGAP (test code = AGAP) 14.2 10.0-20.0 [facility] HospitalFkwgjokCBDOYOONCB6237-40-80 00:50:00 Test Item Value Reference Range Interpretation Comments INR (test code = INR) 1.54 1 0.85-1.17 [facility] HospitalEdkduchALDCFEBZQR5257-92-24 00:50:00 Test Item Value Reference Range Interpretation Comments PT (test code = PT) 18.6 s 12.0-14.7 [facility] HospitalCcgwkkjZWRSLLADHM4301-05-13 00:50:00 Test Item Value Reference Range Interpretation Comments PTT (test code = PTT) 34.6 s 22.9-35.8 [facility] HospitalUsigruhSLAASVNHMZ9910-27-03 00:50:00 Test Item Value Reference Range Interpretation Comments Platelet (test code = Platelet) 267 133-450 [facility] HospitalOnbfokqINZAHHJABB0309-56-70 00:50:00 Test Item Value Reference Range Interpretation Comments RDW (test code = RDW) 13.0 11.5-14.5 [facility] HospitalWmfoehcUVDSGISACU8647-27-41 00:50:00 Test Item Value Reference Range Interpretation Comments MPV (test code = MPV) 8.1 7.4-10.4 [facility] HospitalHuvzdtjJRZKBNQMKV7541-58-96 00:50:00 Test Item Value Reference Range Interpretation Comments RBC (test code = RBC) 3.56 4.20-5.40 [facility] HospitalOyqyhqbIKGXOHHAPR0210-14-38 00:50:00 Test Item Value Reference Range Interpretation Comments WBC (test code = WBC) 22.5 3.7-10.4 [facility] HospitalPjttykxKBFSQUBMIV2686-90-92 00:50:00 Test Item Value Reference Range Interpretation Comments MCHC (test code = MCHC) 33.8 32.0-36.0 [facility] HospitalIfbqzbyYWENZZTBFP7688-42-04 00:50:00 Test Item Value Reference Range Interpretation Comments MCV (test code = MCV) 94.4 80.0-98.0 [facility] HospitalAbysgjzJCBQCKNADF0085-97-46 00:50:00 Test Item Value Reference Range Interpretation Comments MCH (test code = MCH) 32.0 pg 27.0-31.0 [facility] HospitalEmwkudvSWLTYWYDIH4033-51-89 00:50:00 Test Item Value Reference Range Interpretation Comments Eosinophils (test code = 2.0 See_Comment [A utomated message] The Eosinophils) system which ge nerated this result tra nsmitted reference range : <=4.0. The reference r katie was not used to int erpret this result as normal/abnormal . [facility] HospitalUeglrzfQRPIHAYVAR1808-60-07 00:50:00 Test Item Value Reference Range Interpretation Comments Plt Morph (test code = Normal (11/14/17 7:50 Plt Morph) PM) [facility] HospitalPsclbzzKRCMUWJYVQ3556-66-24 00:50:00 Test Item Value Reference Range Interpretation Comments Atypical Lymphs (test code = Atypical 0.0 Lymphs) [facility] HospitalSrpeugkIQKNQLRDWE8857-34-91 00:50:00 Test Item Value Reference Range Interpretation Comments RBC Morph (test code = Normal (11/14/17 7:50 RBC Morph) PM) [facility] HospitalFoxflebWIENHCIUZO7642-18-86 00:50:00 Test Item Value Reference Range Interpretation Comments Lymphocytes # (test code = Lymphocytes 2.2 1.0-5.5 #) [facility] HospitalSusqxpvMOXIKPRPTE2114-04-77 00:50:00 Test Item Value Reference Range Interpretation Comments Segs-Bands # (test code = Segs-Bands #) 19.1 1.5-8.1 [facility] HospitalSvrwfmmFXYJJLWCKZ1530-09-52 00:50:00 Test Item Value Reference Range Interpretation Comments Monocytes (test code = Monocytes) 3.0 2.0-12.0 [facility] HospitalVyxbpmvAMFHDLZPTQ5411-81-82 00:50:00 Test Item Value Reference Range Interpretation Comments Lymphocytes (test code = Lymphocytes) 10.0 20.0-40.0 [facility] CenterPpztkevQHPKCJOWSS5597-92-96 00:50:00 Test Item Value Reference Range Interpretation Comments Bands (test code = 12.0 See_Comment [Automat ed message] The Bands) system which ge nerated this result transmit matteo reference range : <=11.0. The reference r katie was not used to interpr et this result as miesha l/abnormal. [facility]YxaldyhLAJCRRIAQD1299-16-18 00:50:00 Test Item Value Reference Range Interpretation Comments Segs (test code = Segs) 73.0 45.0-75.0 [facility] RegionZifsbrqOQPRDZDRGQ4679-57-02 00:50:00 Test Item Value Reference Range Interpretation Comments Monocytes # (test code 0.7 See_Comment [Aut omated message] The = Monocytes #) system which generated this result tra nsmitted reference range : <=0.8. The reference r katie was not used to int erpret this result as normal/abnormal . [facility] HospitalATHYROID NFBHYPW6207-05-00 00:50:00 Test Item Value Reference Range Interpretation Comments Ca Ion WB (test code = Ca Ion WB) 0.96 1.05-1.25 [facility] HospitalATHYROID PBOEYPF8921-75-29 00:50:00 Test Item Value Reference Range Interpretation Comments Ca Norm WB (test code = Ca Norm WB) 0.97 1.05-1.25 [facility] CenterBACTERIAL - [id number] 00:50:00 Test Item Value Reference Range Interpretation Comments MRSA by PCR (test Negative (11/14/17 7:50 code = MRSA by PCR) PM) [facility] HospitalBringMeThatCHEM [id number] 00:50:00 Test Item Value Reference Range Interpretation Comments eGFR (test code = eGFR) 78 [facility] CenterPrinc[facility] Power System,[employer] [id number] 00:50:00 Test Item Value Reference Range Interpretation Comments Chloride Lvl (test code = Chloride Lvl) 109 95-109 [facility] CenterPrinc[facility] [id number] 00:50:00 Test Item Value Reference Range Interpretation Comments Potassium Lvl (test code = Potassium 5.2 3.5-5.1 Lvl) [facility] CenterPrinc[facility] [id number] 00:50:00 Test Item Value Reference Range Interpretation Comments CO2 (test code = CO2) 23 24-32 [facility]2018-05-22 00:50:00 Test Item Value Reference Range Interpretation Comments Calcium Lvl (test code = Calcium Lvl) 7.5 8.5-10.5 [facility]2018-05-22 00:50:00 Test Item Value Reference Range Interpretation Comments Glucose Lvl (test code = Glucose Lvl) 209 70-99 [facility]2018-05-22 00:50:00 Test Item Value Reference Range Interpretation Comments Sodium Lvl (test code = Sodium Lvl) 141 135-145 [facility]2018-05-22 00:50:00 Test Item Value Reference Range Interpretation Comments Creatinine Lvl (test code = Creatinine 0.80 0.50-1.40 Lvl) [facility]2018-05-22 00:50:00 Test Item Value Reference Range Interpretation Comments BUN (test code = BUN) 13 - [facility]2018-05-22 00:50:00 Test Item Value Reference Range Interpretation Comments AGAP (test code = AGAP) 14.2 10.0-20.0 [facility] HospitalWiyqznhCRQPYTGHRT4070-31-70 00:50:00 Test Item Value Reference Range Interpretation Comments INR (test code = INR) 1.54 1 0.85-1.17 [facility] HospitalXtqehwwCPVSMOMHNH3101-39-81 00:50:00 Test Item Value Reference Range Interpretation Comments PT (test code = PT) 18.6 s 12.0-14.7 [facility] HospitalVsektetDCIXQXQAAS1167-14-81 00:50:00 Test Item Value Reference Range Interpretation Comments PTT (test code = PTT) 34.6 s 22.9-35.8 [facility] HospitalMyvydnqIOUPIDWITG1755-71-89 00:50:00 Test Item Value Reference Range Interpretation Comments Platelet (test code = Platelet) 267 133-450 [facility] HospitalNtkbcrtGHGKBXYMGF5924-44-58 00:50:00 Test Item Value Reference Range Interpretation Comments RDW (test code = RDW) 13.0 11.5-14.5 [facility] HospitalWhraxcrORPIXFQCET2258-92-72 00:50:00 Test Item Value Reference Range Interpretation Comments MPV (test code = MPV) 8.1 7.4-10.4 [facility] HospitalBhfjoyzCWWNVOGYRK2380-32-24 00:50:00 Test Item Value Reference Range Interpretation Comments RBC (test code = RBC) 3.56 4.20-5.40 [facility] HospitalEqneshfBSSPHXIYWV8484-88-74 00:50:00 Test Item Value Reference Range Interpretation Comments WBC (test code = WBC) 22.5 3.7-10.4 [facility] HospitalYbwhrgaPIYSRSSGNO5656-51-36 00:50:00 Test Item Value Reference Range Interpretation Comments MCHC (test code = MCHC) 33.8 32.0-36.0 [facility]OjydcwrQMHBFWDYGI0028-84-74 00:50:00 Test Item Value Reference Range Interpretation Comments MCV (test code = MCV) 94.4 80.0-98.0 [facility] HospitalVhiokziYDPSOCQLSM8658-45-17 00:50:00 Test Item Value Reference Range Interpretation Comments MCH (test code = MCH) 32.0 pg 27.0-31.0 [facility] HospitalFpjgragGNYVZOQUZH4325-99-93 00:50:00 Test Item Value Reference Range Interpretation Comments Eosinophils (test code = 2.0 See_Comment [A utomated message] The Eosinophils) system which ge nerated this result tra nsmitted reference range : <=4.0. The reference r katie was not used to int erpret this result as normal/abnormal . [facility] HospitalTzzfxysLYJGARGZUR0763-87-80 00:50:00 Test Item Value Reference Range Interpretation Comments Plt Morph (test code = Normal (11/14/17 7:50 Plt Morph) PM) [facility] HospitalAiokrylNGGNXWUXVM3612-55-90 00:50:00 Test Item Value Reference Range Interpretation Comments Atypical Lymphs (test code = Atypical 0.0 Lymphs) [facility] HospitalOttvtanLORPEYGSLF9658-50-65 00:50:00 Test Item Value Reference Range Interpretation Comments RBC Morph (test code = Normal (11/14/17 7:50 RBC Morph) PM) [facility] HospitalAclqyvhAKKNXJWTOG0921-88-90 00:50:00 Test Item Value Reference Range Interpretation Comments Lymphocytes # (test code = Lymphocytes 2.2 1.0-5.5 #) [facility] HospitalLagkpdrBBQBJTFBBM9793-06-16 00:50:00 Test Item Value Reference Range Interpretation Comments Segs-Bands # (test code = Segs-Bands #) 19.1 1.5-8.1 [facility] HospitalKcpvxjeLULGOGVLTR1921-00-56 00:50:00 Test Item Value Reference Range Interpretation Comments Monocytes (test code = Monocytes) 3.0 2.0-12.0 [facility]PvzmsqdYINBITHLID2990-65-21 00:50:00 Test Item Value Reference Range Interpretation Comments Lymphocytes (test code = Lymphocytes) 10.0 20.0-40.0 [facility] RegionVuyuwgzFASYNBLTSE1765-93-52 00:50:00 Test Item Value Reference Range Interpretation Comments Bands (test code = 12.0 See_Comment [Automat ed message] The Bands) system which ge nerated this result transmit matteo reference range : <=11.0. The reference r katie was not used to interpr et this result as miesha l/abnormal. [facility] RegionErbmjghACRRZLBICM4657-73-60 00:50:00 Test Item Value Reference Range Interpretation Comments Segs (test code = Segs) 73.0 45.0-75.0 [facility] RegionGqnhllkIPQTROVYXS8087-40-11 00:50:00 Test Item Value Reference Range Interpretation Comments Monocytes # (test code 0.7 See_Comment [Aut omated message] The = Monocytes #) system which generated this result tra nsmitted reference range : <=0.8. The reference r katie was not used to int erpret this result as normal/abnormal . [facility]PARATHYROID WMETLWC9120-43-01 00:50:00 Test Item Value Reference Range Interpretation Comments Ca Ion WB (test code = Ca Ion WB) 0.96 1.05-1.25 [facility] CenterPARATHYROID LWUQMAF4380-44-64 00:50:00 Test Item Value Reference Range Interpretation Comments Ca Norm WB (test code = Ca Norm WB) 0.97 1.05-1.25 [facility] CenterBACTERIAL - [id number] 00:50:00 Test Item Value Reference Range Interpretation Comments MRSA by PCR (test Negative (11/14/17 7:50 code = MRSA by PCR) PM) [facility] CenterCHEM [id number] 00:50:00 Test Item Value Reference Range Interpretation Comments eGFR (test code = eGFR) 78 [facility] CenterPrinceton Power System,Inc[employer] PDTSQ2874-52-77 00:50:00 Test Item Value Reference Range Interpretation Comments Chloride Lvl (test code = Chloride Lvl) 109 95-109 [facility] QBWCQ2955-68-98 00:50:00 Test Item Value Reference Range Interpretation Comments Potassium Lvl (test code = Potassium 5.2 3.5-5.1 Lvl) [facility]2018-05-22 00:50:00 Test Item Value Reference Range Interpretation Comments CO2 (test code = CO2) 23 24-32 [facility]2018-05-22 00:50:00 Test Item Value Reference Range Interpretation Comments Calcium Lvl (test code = Calcium Lvl) 7.5 8.5-10.5 [facility]2018-05-22 00:50:00 Test Item Value Reference Range Interpretation Comments Glucose Lvl (test code = Glucose Lvl) 209 70-99 [facility]2018-05-22 00:50:00 Test Item Value Reference Range Interpretation Comments Sodium Lvl (test code = Sodium Lvl) 141 135-145 [facility]2018-05-22 00:50:00 Test Item Value Reference Range Interpretation Comments Creatinine Lvl (test code = Creatinine 0.80 0.50-1.40 Lvl) [facility]2018-05-22 00:50:00 Test Item Value Reference Range Interpretation Comments BUN (test code = BUN) 13 7-22 [facility]2018-05-22 00:50:00 Test Item Value Reference Range Interpretation Comments AGAP (test code = AGAP) 14.2 10.0-20.0 [facility] HospitalObnsmgmJABEXHVCMD1270-62-84 00:50:00 Test Item Value Reference Range Interpretation Comments INR (test code = INR) 1.54 1 0.85-1.17 [facility] HospitalXraazzgNYZRWZNMTW1482-10-99 00:50:00 Test Item Value Reference Range Interpretation Comments PT (test code = PT) 18.6 s 12.0-14.7 [facility] HospitalVamfzieMHTHKOFQXS6460-26-28 00:50:00 Test Item Value Reference Range Interpretation Comments PTT (test code = PTT) 34.6 s 22.9-35.8 [facility] HospitalWhyqpagVPFOCDRLQU8929-41-46 00:50:00 Test Item Value Reference Range Interpretation Comments Platelet (test code = Platelet) 267 133-450 [facility] HospitalYfdaqkfVRRILRCCLR6665-28-58 00:50:00 Test Item Value Reference Range Interpretation Comments RDW (test code = RDW) 13.0 11.5-14.5 [place] [id number] 00:50:00 Test Item Value Reference Range Interpretation Comments MPV (test code = MPV) 8.1 7.4-10.4 [facility] HospitalEefrodpLOUDCVOFSM5237-82-34 00:50:00 Test Item Value Reference Range Interpretation Comments RBC (test code = RBC) 3.56 4.20-5.40 [facility] HospitalFgmaygtXOVSXOUBLQ1237-75-62 00:50:00 Test Item Value Reference Range Interpretation Comments WBC (test code = WBC) 22.5 3.7-10.4 [facility] HospitalUklbaonDUIFSKFCXH2812-13-79 00:50:00 Test Item Value Reference Range Interpretation Comments MCHC (test code = MCHC) 33.8 32.0-36.0 [facility] HospitalPjzaogeAFFSPGCLPB5750-28-91 00:50:00 Test Item Value Reference Range Interpretation Comments MCV (test code = MCV) 94.4 80.0-98.0 [facility] HospitalXbhlwwhVSDJWUIQCK7826-76-57 00:50:00 Test Item Value Reference Range Interpretation Comments MCH (test code = MCH) 32.0 pg 27.0-31.0 [facility] HospitalXkjhrpwBMAUASTEPU8610-10-19 00:50:00 Test Item Value Reference Range Interpretation Comments Eosinophils (test code = 2.0 See_Comment [A utomated message] The Eosinophils) system which ge nerated this result tra nsmitted reference range : <=4.0. The reference r katie was not used to int erpret this result as normal/abnormal . [facility] HospitalKeufdmhDZVESGLMXS9093-68-01 00:50:00 Test Item Value Reference Range Interpretation Comments Plt Morph (test code = Normal (11/14/17 7:50 Plt Morph) PM) [facility] HospitalJlqoyhlSXXMWUKNOR3264-45-45 00:50:00 Test Item Value Reference Range Interpretation Comments Atypical Lymphs (test code = Atypical 0.0 Lymphs) [facility] HospitalZceuopzIJLEZCHGKC0472-54-13 00:50:00 Test Item Value Reference Range Interpretation Comments RBC Morph (test code = Normal (11/14/17 7:50 RBC Morph) PM) [facility] HospitalQejjpvcWHXNHXSPWW5732-93-96 00:50:00 Test Item Value Reference Range Interpretation Comments Lymphocytes # (test code = Lymphocytes 2.2 1.0-5.5 #) [facility] HospitalGaosfvaOPRLOJGHQJ1386-00-90 00:50:00 Test Item Value Reference Range Interpretation Comments Segs-Bands # (test code = Segs-Bands #) 19.1 1.5-8.1 [facility] HospitalBeytgwgLFRZWVKUPX5195-69-67 00:50:00 Test Item Value Reference Range Interpretation Comments Monocytes (test code = Monocytes) 3.0 2.0-12.0 [facility] HospitalDhzsfcbOPGDEGANLE3531-67-68 00:50:00 Test Item Value Reference Range Interpretation Comments Lymphocytes (test code = Lymphocytes) 10.0 20.0-40.0 [facility] HospitalKnzdnohILQDUCGFBL9938-81-21 00:50:00 Test Item Value Reference Range Interpretation Comments Bands (test code = 12.0 See_Comment [Automat ed message] The Bands) system which ge nerated this result transmit matteo reference range : <=11.0. The reference r katie was not used to interpr et this result as miesha l/abnormal. [facility] HospitalQfwybczKODRVFYFGD4129-55-99 00:50:00 Test Item Value Reference Range Interpretation Comments Segs (test code = Segs) 73.0 45.0-75.0 [facility] HospitalKuqnxecUDFGFRAZQQ9507-55-63 00:50:00 Test Item Value Reference Range Interpretation Comments Monocytes # (test code 0.7 See_Comment [Aut omated message] The = Monocytes #) system which generated this result tra nsmitted reference range : <=0.8. The reference r katie was not used to int erpret this result as normal/abnormal . [facility]ATHYROID AMUKOKV9729-13-90 00:50:00 Test Item Value Reference Range Interpretation Comments Ca Ion WB (test code = Ca Ion WB) 0.96 1.05-1.25 [facility] CenterPARATHYROID [id number] 00:50:00 Test Item Value Reference Range Interpretation Comments Ca Norm WB (test code = Ca Norm WB) 0.97 1.05-1.25 [facility] CenterBACTERIAL - [id number] 00:50:00 Test Item Value Reference Range Interpretation Comments MRSA by PCR (test Negative (11/14/17 7:50 code = MRSA by PCR) PM) [facility] CenterCHEM [id number] 00:50:00 Test Item Value Reference Range Interpretation Comments eGFR (test code = eGFR) 78 [facility]2018-05-22 00:50:00 Test Item Value Reference Range Interpretation Comments Chloride Lvl (test code = Chloride Lvl) 109 95-109 [facility]2018-05-22 00:50:00 Test Item Value Reference Range Interpretation Comments Potassium Lvl (test code = Potassium 5.2 3.5-5.1 Lvl) [facility]2018-05-22 00:50:00 Test Item Value Reference Range Interpretation Comments CO2 (test code = CO2) 23 24-32 [facility]2018-05-22 00:50:00 Test Item Value Reference Range Interpretation Comments Calcium Lvl (test code = Calcium Lvl) 7.5 8.5-10.5 [facility]2018-05-22 00:50:00 Test Item Value Reference Range Interpretation Comments Glucose Lvl (test code = Glucose Lvl) 209 70-99 [facility]2018-05-22 00:50:00 Test Item Value Reference Range Interpretation Comments Sodium Lvl (test code = Sodium Lvl) 141 135-145 [facility]2018-05-22 00:50:00 Test Item Value Reference Range Interpretation Comments Creatinine Lvl (test code = Creatinine 0.80 0.50-1.40 Lvl) [facility]2018-05-22 00:50:00 Test Item Value Reference Range Interpretation Comments BUN (test code = BUN) 13 7-22 [facility]2018-05-22 00:50:00 Test Item Value Reference Range Interpretation Comments AGAP (test code = AGAP) 14.2 10.0-20.0 [facility] HospitalSqeeaqkIQNQZCHVGT0689-12-56 00:50:00 Test Item Value Reference Range Interpretation Comments INR (test code = INR) 1.54 1 0.85-1.17 [place] [id number] 00:50:00 Test Item Value Reference Range Interpretation Comments PT (test code = PT) 18.6 s 12.0-14.7 [facility] HospitalRvzweugTQTNQSUMQE5328-78-86 00:50:00 Test Item Value Reference Range Interpretation Comments PTT (test code = PTT) 34.6 s 22.9-35.8 [place] 464978-05-22 00:50:00 Test Item Value Reference Range Interpretation Comments Platelet (test code = Platelet) 267 133450 [facility] HospitalJvuvfxrHFGIIWPGLA1816-86-40 00:50:00 Test Item Value Reference Range Interpretation Comments RDW (test code = RDW) 13.0 11.5-14.5 [facility] HospitalLqmlslhZVHQZUBWHN3062-60-58 00:50:00 Test Item Value Reference Range Interpretation Comments MPV (test code = MPV) 8.1 7.4-10.4 [facility] HospitalYxyeusrEIHILQFXHV5543-64-34 00:50:00 Test Item Value Reference Range Interpretation Comments RBC (test code = RBC) 3.56 4.20-5.40 [facility] HospitalZndxvxlKHVIPDVSTC7218-24-08 00:50:00 Test Item Value Reference Range Interpretation Comments WBC (test code = WBC) 22.5 3.7-10.4 [facility] HospitalQhhqwseMVHCIIZDJD5639-90-23 00:50:00 Test Item Value Reference Range Interpretation Comments MCHC (test code = MCHC) 33.8 32.0-36.0 [facility] HospitalXndxpnrCJDKRSJTBB7623-69-30 00:50:00 Test Item Value Reference Range Interpretation Comments MCV (test code = MCV) 94.4 80.0-98.0 [facility] HospitalTzpiexzCMYUZBGTYJ3001-37-07 00:50:00 Test Item Value Reference Range Interpretation Comments MCH (test code = MCH) 32.0 pg 27.0-31.0 [facility] HospitalZdywstcISHYPTPMID7442-03-01 00:50:00 Test Item Value Reference Range Interpretation Comments Eosinophils (test code = 2.0 See_Comment [A utomated message] The Eosinophils) system which ge nerated this result tra nsmitted reference range : <=4.0. The reference r katie was not used to int erpret this result as normal/abnormal . [facility] HospitalZimliduDUJJFDUCNF3187-57-12 00:50:00 Test Item Value Reference Range Interpretation Comments Plt Morph (test code = Normal (11/14/17 7:50 Plt Morph) PM) [facility] HospitalTqikzgvKNDDUMKZNY8099-91-02 00:50:00 Test Item Value Reference Range Interpretation Comments Atypical Lymphs (test code = Atypical 0.0 Lymphs) [facility] HospitalIaqyewnTSTUZHGTXV7553-11-25 00:50:00 Test Item Value Reference Range Interpretation Comments RBC Morph (test code = Normal (5/21/18 7:50 RBC Morph) PM) [facility] HospitalOwrlbflPGCQRTHNQX7109-67-93 00:50:00 Test Item Value Reference Range Interpretation Comments Lymphocytes # (test code = Lymphocytes 2.2 1.0-5.5 #) [facility] HospitalLjuaidnMGTOLQZLRY3220-48-21 00:50:00 Test Item Value Reference Range Interpretation Comments Segs-Bands # (test code = Segs-Bands #) 19.1 1.5-8.1 [facility] HospitalFgwdqphFDUKWRTFMO8815-87-55 00:50:00 Test Item Value Reference Range Interpretation Comments Monocytes (test code = Monocytes) 3.0 2.0-12.0 [facility]RmrgkewMGYOVTFSSZ2586-23-28 00:50:00 Test Item Value Reference Range Interpretation Comments Lymphocytes (test code = Lymphocytes) 10.0 20.0-40.0 [facility] HospitalIltqulyCQIWLIDLGP0517-86-48 00:50:00 Test Item Value Reference Range Interpretation Comments Bands (test code = 12.0 See_Comment [Automat ed message] The Bands) system which ge nerated this result transmit matteo reference range : <=11.0. The reference r katie was not used to interpr et this result as miesha l/abnormal. [facility] HospitalPlrteyyWYDSMTMAER5299-74-37 00:50:00 Test Item Value Reference Range Interpretation Comments Segs (test code = Segs) 73.0 45.0-75.0 [facility] HospitalZiygjsrFSJLWPYLCJ2352-65-93 00:50:00 Test Item Value Reference Range Interpretation Comments Monocytes # (test code 0.7 See_Comment [Aut omated message] The = Monocytes #) system which generated this result tra nsmitted reference range : <=0.8. The reference r katie was not used to int erpret this result as normal/abnormal . [facility] HospitalATHYROID AYNTEUH7034-97-17 00:50:00 Test Item Value Reference Range Interpretation Comments Ca Ion WB (test code = Ca Ion WB) 0.96 1.05-1.25 [facility]RO[facility] HPDQRDE4721-92-01 00:50:00 Test Item Value Reference Range Interpretation Comments Ca Norm WB (test code = Ca Norm WB) 0.97 1.05-1.25 [facility] CenterBACTERIAL - DMOZIQJS8001-75-89 00:50:00 Test Item Value Reference Range Interpretation Comments MRSA by PCR (test Negative (11/14/17 7:50 code = MRSA by PCR) PM) [facility]2018-05-22 00:50:00 Test Item Value Reference Range Interpretation Comments eGFR (test code = eGFR) 78 [facility]2018-05-22 00:50:00 Test Item Value Reference Range Interpretation Comments Chloride Lvl (test code = Chloride Lvl) 109 95-109 [facility]2018-05-22 00:50:00 Test Item Value Reference Range Interpretation Comments Potassium Lvl (test code = Potassium 5.2 3.5-5.1 Lvl) [facility]2018-05-22 00:50:00 Test Item Value Reference Range Interpretation Comments CO2 (test code = CO2) 23 24-32 [facility]2018-05-22 00:50:00 Test Item Value Reference Range Interpretation Comments Calcium Lvl (test code = Calcium Lvl) 7.5 8.5-10.5 [facility]2018-05-22 00:50:00 Test Item Value Reference Range Interpretation Comments Glucose Lvl (test code = Glucose Lvl) 209 70-99 [facility]2018-05-22 00:50:00 Test Item Value Reference Range Interpretation Comments Sodium Lvl (test code = Sodium Lvl) 141 135-145 [facility]2018-05-22 00:50:00 Test Item Value Reference Range Interpretation Comments Creatinine Lvl (test code = Creatinine 0.80 0.50-1.40 Lvl) [facility]2018-05-22 00:50:00 Test Item Value Reference Range Interpretation Comments BUN (test code = BUN) 13 -22 [facility]2018-05-22 00:50:00 Test Item Value Reference Range Interpretation Comments AGAP (test code = AGAP) 14.2 10.0-20.0 [facility] HospitalBrdrctgARPWQAAPDJ8806-24-96 00:50:00 Test Item Value Reference Range Interpretation Comments INR (test code = INR) 1.54 1 0.85-1.17 [facility] HospitalYwuraqsWYUGFAGSWO7453-87-68 00:50:00 Test Item Value Reference Range Interpretation Comments PT (test code = PT) 18.6 s 12.0-14.7 [facility] HospitalNvohvttSHBSNMCRQF9407-67-45 00:50:00 Test Item Value Reference Range Interpretation Comments PTT (test code = PTT) 34.6 s 22.9-35.8 [facility] HospitalPtywrojBOSJBZMHNC8601-86-26 00:50:00 Test Item Value Reference Range Interpretation Comments Platelet (test code = Platelet) 267 133-450 [facility] HospitalSjibznbYVJGIWDLEK1976-49-58 00:50:00 Test Item Value Reference Range Interpretation Comments RDW (test code = RDW) 13.0 11.5-14.5 [facility] HospitalCgvnhxpVQREYSPQOP4187-92-55 00:50:00 Test Item Value Reference Range Interpretation Comments MPV (test code = MPV) 8.1 7.4-10.4 [facility] HospitalQsqupsoUYSQGWWEVL9756-84-79 00:50:00 Test Item Value Reference Range Interpretation Comments RBC (test code = RBC) 3.56 4.20-5.40 [facility] HospitalMubnsmhLOXPQIZSNI5186-74-97 00:50:00 Test Item Value Reference Range Interpretation Comments WBC (test code = WBC) 22.5 3.7-10.4 [facility] HospitalZwcwqsqYADPNHUJCT1429-70-24 00:50:00 Test Item Value Reference Range Interpretation Comments MCHC (test code = MCHC) 33.8 32.0-36.0 [facility] HospitalDekctnuXJRICSQKHP8588-66-71 00:50:00 Test Item Value Reference Range Interpretation Comments MCV (test code = MCV) 94.4 80.0-98.0 [facility] HospitalGgnazxzQJARNWZTIE5806-17-30 00:50:00 Test Item Value Reference Range Interpretation Comments MCH (test code = MCH) 32.0 pg 27.0-31.0 [facility] HospitalHwmxrnxTJIBVDXTMF3409-75-35 00:50:00 Test Item Value Reference Range Interpretation Comments Eosinophils (test code = 2.0 See_Comment [A utomated message] The Eosinophils) system which ge nerated this result tra nsmitted reference range : <=4.0. The reference r katie was not used to int erpret this result as normal/abnormal . [facility] HospitalTkpakmlHMWTJKOJUZ2906-57-28 00:50:00 Test Item Value Reference Range Interpretation Comments Plt Morph (test code = Normal (11/14/17 7:50 Plt Morph) PM) [facility] HospitalVnyplyiWMXIDJDUKP7251-52-16 00:50:00 Test Item Value Reference Range Interpretation Comments Atypical Lymphs (test code = Atypical 0.0 Lymphs) [facility] HospitalKvaerreQISXTSBVII0743-91-26 00:50:00 Test Item Value Reference Range Interpretation Comments RBC Morph (test code = Normal (11/14/17 7:50 RBC Morph) PM) [facility] HospitalCscmrvpKVDSFUNLLW3086-27-07 00:50:00 Test Item Value Reference Range Interpretation Comments Lymphocytes # (test code = Lymphocytes 2.2 1.0-5.5 #) [facility] HospitalXtljtbeGQZXFAECRF8168-05-70 00:50:00 Test Item Value Reference Range Interpretation Comments Segs-Bands # (test code = Segs-Bands #) 19.1 1.5-8.1 [place] [id number] 00:50:00 Test Item Value Reference Range Interpretation Comments Monocytes (test code = Monocytes) 3.0 2.0-12.0 [facility] HospitalQnpltfyAYHVBHVRRW3338-77-97 00:50:00 Test Item Value Reference Range Interpretation Comments Lymphocytes (test code = Lymphocytes) 10.0 20.0-40.0 [facility] HospitalXbkuejmVTAHZVIDDK7208-10-38 00:50:00 Test Item Value Reference Range Interpretation Comments Bands (test code = 12.0 See_Comment [Automat ed message] The Bands) system which ge nerated this result transmit matteo reference range : <=11.0. The reference r katie was not used to interpr et this result as miesha l/abnormal. [facility] HospitalVyitughBHBOQTTEZF0125-01-29 00:50:00 Test Item Value Reference Range Interpretation Comments Segs (test code = Segs) 73.0 45.0-75.0 [facility] HospitalEqkxrbuIFVRITTVTQ8551-04-33 00:50:00 Test Item Value Reference Range Interpretation Comments Monocytes # (test code 0.7 See_Comment [Aut omated message] The = Monocytes #) system which generated this result tra nsmitted reference range : <=0.8. The reference r katie was not used to int erpret this result as normal/abnormal . [facility] HospitalROID HSOABFL3433-92-32 00:50:00 Test Item Value Reference Range Interpretation Comments Ca Ion WB (test code = Ca Ion WB) 0.96 1.05-1.25 [facility]2018-05-22 00:50:00 Test Item Value Reference Range Interpretation Comments Ca Norm WB (test code = Ca Norm WB) 0.97 1.05-1.25 [facility] CenterBACT[facility] - XRWFIJKE6648-04-80 00:50:00 Test Item Value Reference Range Interpretation Comments MRSA by PCR (test Negative (11/14/17 7:50 code = MRSA by PCR) PM) [facility]2018-05-22 00:50:00 Test Item Value Reference Range Interpretation Comments eGFR (test code = eGFR) 78 [facility]2018-05-22 00:50:00 Test Item Value Reference Range Interpretation Comments Chloride Lvl (test code = Chloride Lvl) 109 95-109 [facility]2018-05-22 00:50:00 Test Item Value Reference Range Interpretation Comments Potassium Lvl (test code = Potassium 5.2 3.5-5.1 Lvl) [facility]2018-05-22 00:50:00 Test Item Value Reference Range Interpretation Comments CO2 (test code = CO2) 23 24-32 [facility]2018-05-22 00:50:00 Test Item Value Reference Range Interpretation Comments Calcium Lvl (test code = Calcium Lvl) 7.5 8.5-10.5 [facility]2018-05-22 00:50:00 Test Item Value Reference Range Interpretation Comments Glucose Lvl (test code = Glucose Lvl) 209 70-99 [facility]2018-05-22 00:50:00 Test Item Value Reference Range Interpretation Comments Sodium Lvl (test code = Sodium Lvl) 141 135-145 [facility]2018-05-22 00:50:00 Test Item Value Reference Range Interpretation Comments Creatinine Lvl (test code = Creatinine 0.80 0.50-1.40 Lvl) [facility]2018-05-22 00:50:00 Test Item Value Reference Range Interpretation Comments BUN (test code = BUN) 13 7-22 [facility]2018-05-22 00:50:00 Test Item Value Reference Range Interpretation Comments AGAP (test code = AGAP) 14.2 10.0-20.0 [facility] CenterYngvitxOWTLCLHOJR3687-67-17 00:50:00 Test Item Value Reference Range Interpretation Comments INR (test code = INR) 1.54 1 0.85-1.17 [facility] HospitalDnywqdeMKQDURBLCJ9989-33-41 00:50:00 Test Item Value Reference Range Interpretation Comments PT (test code = PT) 18.6 s 12.0-14.7 [facility] HospitalMpwyeldLIGIADIBBJ5775-50-80 00:50:00 Test Item Value Reference Range Interpretation Comments PTT (test code = PTT) 34.6 s 22.9-35.8 [facility] HospitalQkeemxyFXZIQDJLIH0412-25-05 00:50:00 Test Item Value Reference Range Interpretation Comments Platelet (test code = Platelet) 267 133-450 [facility] HospitalEeeiabeMZONNMTXPQ0317-94-78 00:50:00 Test Item Value Reference Range Interpretation Comments RDW (test code = RDW) 13.0 11.5-14.5 [facility] HospitalKmwgdsjHEMYKDOTLT2544-12-43 00:50:00 Test Item Value Reference Range Interpretation Comments MPV (test code = MPV) 8.1 7.4-10.4 [facility] HospitalPhrzlwsCTNZMBXYJA8461-52-94 00:50:00 Test Item Value Reference Range Interpretation Comments RBC (test code = RBC) 3.56 4.20-5.40 [facility]AxznqesCYNUWJYXES8881-76-95 00:50:00 Test Item Value Reference Range Interpretation Comments WBC (test code = WBC) 22.5 3.7-10.4 [facility]PpuzvbvEVQKQZAGKG1398-40-94 00:50:00 Test Item Value Reference Range Interpretation Comments MCHC (test code = MCHC) 33.8 32.0-36.0 [facility] HospitalGwiyenyPPPZBOWRDI3479-99-02 00:50:00 Test Item Value Reference Range Interpretation Comments MCV (test code = MCV) 94.4 80.0-98.0 [facility] HospitalVuzekzwRUXFPKNKQA2266-65-49 00:50:00 Test Item Value Reference Range Interpretation Comments MCH (test code = MCH) 32.0 pg 27.0-31.0 [facility] HospitalDpaatcaGDIIETFUWK8561-33-96 00:50:00 Test Item Value Reference Range Interpretation Comments Eosinophils (test code = 2.0 See_Comment [A utomated message] The Eosinophils) system which ge nerated this result tra nsmitted reference range : <=4.0. The reference r katie was not used to int erpret this result as normal/abnormal . [facility] HospitalZnzbairWOFAOMSLVR9666-26-66 00:50:00 Test Item Value Reference Range Interpretation Comments Plt Morph (test code = Normal (11/14/17 7:50 Plt Morph) PM) [facility] HospitalVoyoesnKSPWSAWWOZ7918-86-93 00:50:00 Test Item Value Reference Range Interpretation Comments Atypical Lymphs (test code = Atypical 0.0 Lymphs) [facility] HospitalYybrnlgTKFHVNAVBT9269-75-06 00:50:00 Test Item Value Reference Range Interpretation Comments RBC Morph (test code = Normal (11/14/17 7:50 RBC Morph) PM) [facility] HospitalXmzqbjrFMMPFKIBLN1427-49-83 00:50:00 Test Item Value Reference Range Interpretation Comments Lymphocytes # (test code = Lymphocytes 2.2 1.0-5.5 #) [facility] HospitalGrzzaaeYLBAYGTHYV4230-32-16 00:50:00 Test Item Value Reference Range Interpretation Comments Segs-Bands # (test code = Segs-Bands #) 19.1 1.5-8.1 [facility] HospitalMtdwjtnBYJYTHWSKH9863-91-25 00:50:00 Test Item Value Reference Range Interpretation Comments Monocytes (test code = Monocytes) 3.0 2.0-12.0 [facility] HospitalEkafhniQQNXMTEUPP5430-71-10 00:50:00 Test Item Value Reference Range Interpretation Comments Lymphocytes (test code = Lymphocytes) 10.0 20.0-40.0 [facility] HospitalLcnlcspVYZVPILOLG2693-78-66 00:50:00 Test Item Value Reference Range Interpretation Comments Bands (test code = 12.0 See_Comment [Automat ed message] The Bands) system which ge nerated this result transmit matteo reference range : <=11.0. The reference r katie was not used to interpr et this result as miesha l/abnormal. [facility] HospitalCevjohwSWGSELZEKC7972-79-63 00:50:00 Test Item Value Reference Range Interpretation Comments Segs (test code = Segs) 73.0 45.0-75.0 [facility] HospitalVzwgwwwTDXUIZBKQR2392-63-85 00:50:00 Test Item Value Reference Range Interpretation Comments Monocytes # (test code 0.7 See_Comment [Aut omated message] The = Monocytes #) system which generated this result tra nsmitted reference range : <=0.8. The reference r katie was not used to int erpret this result as normal/abnormal . [facility]PARATHYROID YDMLWOE4103-62-09 00:50:00 Test Item Value Reference Range Interpretation Comments Ca Ion WB (test code = Ca Ion WB) 0.96 1.05-1.25 [facility] [id number] 00:50:00 Test Item Value Reference Range Interpretation Comments Ca Norm WB (test code = Ca Norm WB) 0.97 1.05-1.25 [facility] [id number] 23:32:00 Test Item Value Reference Range Interpretation Comments RBC product (test code Product available = RBC product) (11/14/17 6:32 PM) [facility] [id number] 23:32:00 Test Item Value Reference Range Interpretation Comments RBC product (test code Product available = RBC product) (11/14/17 6:32 PM) [facility] [id number] 23:32:00 Test Item Value Reference Range Interpretation Comments RBC product (test code Product available = RBC product) (11/14/17 6:32 PM) [facility] [id number] 23:32:00 Test Item Value Reference Range Interpretation Comments RBC product (test code Product available = RBC product) (11/14/17 6:32 PM) [facility] [id number] 23:32:00 Test Item Value Reference Range Interpretation Comments RBC product (test code Product available = RBC product) (11/14/17 6:32 PM) [facility] [id number] 23:32:00 Test Item Value Reference Range Interpretation Comments RBC product (test code Product available = RBC product) (11/14/17 6:32 PM) [facility] [id number] 22:14:00 Test Item Value Reference Range Interpretation Comments Platelet product (test Product available code = Platelet (11/14/17 5:14 PM) product) [facility] [id number] 22:14:00 Test Item Value Reference Range Interpretation Comments Platelet product (test Product available code = Platelet (11/14/17 5:14 PM) product) [facility] [id number] 22:14:00 Test Item Value Reference Range Interpretation Comments Platelet product (test Product available code = Platelet (11/14/17 5:14 PM) product) [facility] [id number] 22:14:00 Test Item Value Reference Range Interpretation Comments Platelet product (test Product available code = Platelet (11/14/17 5:14 PM) product) [facility] [id number] 22:14:00 Test Item Value Reference Range Interpretation Comments Platelet product (test Product available code = Platelet (11/14/17 5:14 PM) product) [facility] [id number] 22:14:00 Test Item Value Reference Range Interpretation Comments Platelet product (test Product available code = Platelet (11/14/17 5:14 PM) product) [facility] [id number] 20:51:00 Test Item Value Reference Range Interpretation Comments RBC product (test code Product available = RBC product) 3(11/14/17 3:51 PM) [facility] [id number] 20:51:00 Test Item Value Reference Range Interpretation Comments RBC product (test code Product available = RBC product) 3(11/14/17 3:51 PM) [facility] [id number] 20:51:00 Test Item Value Reference Range Interpretation Comments RBC product (test code Product available = RBC product) 3(11/14/17 3:51 PM) [facility] [id number] 20:51:00 Test Item Value Reference Range Interpretation Comments RBC product (test code Product available = RBC product) 3(11/14/17 3:51 PM) [facility] [id number] 20:51:00 Test Item Value Reference Range Interpretation Comments RBC product (test code Product available = RBC product) 3(11/14/17 3:51 PM) [facility] [id number] 20:51:00 Test Item Value Reference Range Interpretation Comments RBC product (test code Product available = RBC product) 3(11/14/17 3:51 PM) [facility] [id number] 19:48:00 Test Item Value Reference Range Interpretation Comments Antibody Scrn (test Negative (11/14/17 2:48 code = Antibody Scrn) PM) [facility] [id number] 19:48:00 Test Item Value Reference Range Interpretation Comments ABO/Rh (test code = ABO/Rh) A POS [facility] H[id number] 19:48:00 Test Item Value Reference Range Interpretation Comments Lymphocytes # (test code = Lymphocytes 2.6 1.0-5.5 #) [facility] HospitalSgixgerZPMRRMOUSG4786-19-06 19:48:00 Test Item Value Reference Range Interpretation Comments Segs-Bands # (test code = Segs-Bands #) 3.5 1.5-8.1 [facility] HospitalUbncvmxCGWGVBOYDE6883-05-18 19:48:00 Test Item Value Reference Range Interpretation Comments Basophils (test code = 0.5 See_Comment [Aut omated message] The Basophils) system which ge nerated this result tra nsmitted reference range : <=1.0. The reference r katie was not used to int erpret this result as normal/abnormal . [facility] HospitalByyiifvJBGKIWHMHL5938-56-40 19:48:00 Test Item Value Reference Range Interpretation Comments Eosinophils (test code = 3.9 See_Comment [A utomated message] The Eosinophils) system which ge nerated this result tra nsmitted reference range : <=4.0. The reference r katie was not used to int erpret this result as normal/abnormal . [facility] HospitalIavcwnjOYICDOJRDF3602-30-05 19:48:00 Test Item Value Reference Range Interpretation Comments Monocytes # (test code 0.3 See_Comment [Aut omated message] The = Monocytes #) system which generated this result tra nsmitted reference range : <=0.8. The reference r katie was not used to int erpret this result as normal/abnormal . [facility] HospitalFdbghqsWSWXJZUCNQ0204-24-73 19:48:00 Test Item Value Reference Range Interpretation Comments Basophils # (test code 0.0 See_Comment [Aut omated message] The = Basophils #) system which generated this result tra nsmitted reference range : <=0.2. The reference r katie was not used to int erpret this result as normal/abnormal . [facility] Hospit[id number] 19:48:00 Test Item Value Reference Range Interpretation Comments Eosinophils # (test code 0.3 See_Comment [A utomated message] The = Eosinophils #) system [facility] h generated this result tra nsmitted reference range : <=0.5. The reference r katie was not used to int erpret this result as normal/abnormal . [facility] HospitalHycsjwcVFHENYWYSB8765-92-54 19:48:00 Test Item Value Reference Range Interpretation Comments Plt Morph (test code = Normal (11/14/17 2:48 Plt Morph) PM) [facility] HospitalDswdjzyYJEABDYNLS2811-86-07 19:48:00 Test Item Value Reference Range Interpretation Comments RBC Morph (test code = Normal (11/14/17 2:48 RBC Morph) PM) [facility] HospitalWnurscbQJBIQMGCGY3536-12-93 19:48:00 Test Item Value Reference Range Interpretation Comments Monocytes (test code = Monocytes) 4.9 2.0-12.0 [facility] HospitalTtgkrsbZVDQUNQVFQ0101-18-75 19:48:00 Test Item Value Reference Range Interpretation Comments Lymphocytes (test code = Lymphocytes) 38.1 20.0-40.0 [facility] Hospit[id number] 19:48:00 Test Item Value Reference Range Interpretation Comments Segs (test code = Segs) 52.6 45.0-75.0 [facility] HospitalMetaLINCS [facility] [id number] 19:48:00 Test Item Value Reference Range Interpretation Comments Antibody Scrn (test Negative (11/14/17 2:48 code = Antibody Scrn) PM) [facility] HospitalwiMAN [id number] 19:48:00 Test Item Value Reference Range Interpretation Comments ABO/Rh (test code = ABO/Rh) A POS [facility] Hospit[id number] 19:48:00 Test Item Value Reference Range Interpretation Comments Lymphocytes # (test code = Lymphocytes 2.6 1.0-5.5 #) [facility] HospitalRtmdoalIWIAUUEGYG0474-62-48 19:48:00 Test Item Value Reference Range Interpretation Comments Segs-Bands # (test code = Segs-Bands #) 3.5 1.5-8.1 [facility] CenterUjpjnkmXOINLKWNLD0655-80-78 19:48:00 Test Item Value Reference Range Interpretation Comments Basophils (test code = 0.5 See_Comment [Aut omated message] The Basophils) system which ge nerated this result tra nsmitted reference range : <=1.0. The reference r katie was not used to int erpret this result as normal/abnormal . [facility] Hospit[id number] 19:48:00 Test Item Value Reference Range Interpretation Comments Eosinophils (test code = 3.9 See_Comment [A utomated message] The Eosinophils) system which ge nerated this result tra nsmitted reference range : <=4.0. The reference r katie was not used to int erpret this result as normal/abnormal . [facility] HospitalRrrzmioMGSBIKIOMK3805-88-73 19:48:00 Test Item Value Reference Range Interpretation Comments Monocytes # (test code 0.3 See_Comment [Aut omated message] The = Monocytes #) system which generated this result tra nsmitted reference range : <=0.8. The reference r katie was not used to int erpret this result as normal/abnormal . [facility] HospitalNcytuqcDTJTQGIDNT9111-38-26 19:48:00 Test Item Value Reference Range Interpretation Comments Basophils # (test code 0.0 See_Comment [Aut omated message] The = Basophils #) system which generated this result tra nsmitted reference range : <=0.2. The reference r katie was not used to int erpret this result as normal/abnormal . [facility] HospitalIwhkxhgMDRMEDAYPX3359-24-27 19:48:00 Test Item Value Reference Range Interpretation Comments Eosinophils # (test code 0.3 See_Comment [A utomated message] The = Eosinophils #) system whic h generated this result tra nsmitted reference range : <=0.5. The reference r katie was not used to int erpret this result as normal/abnormal . [facility] HospitalPfsiqxpVZCAQYMBSI0942-03-22 19:48:00 Test Item Value Reference Range Interpretation Comments Plt Morph (test code = Normal (11/14/17 2:48 Plt Morph) PM) [facility] HospitalKmvlnrhSQXXSQKBFN7768-45-59 19:48:00 Test Item Value Reference Range Interpretation Comments RBC Morph (test code = Normal (11/14/17 2:48 RBC Morph) PM) [facility] HospitalBpustahOUWYQBFVDB0354-52-49 19:48:00 Test Item Value Reference Range Interpretation Comments Monocytes (test code = Monocytes) 4.9 2.0-12.0 [facility] HospitalFhtajjgVAWVFYCNUT8524-67-05 19:48:00 Test Item Value Reference Range Interpretation Comments Lymphocytes (test code = Lymphocytes) 38.1 20.0-40.0 [facility] HospitalIrsuxmgPVMXNRXFRX1281-05-26 19:48:00 Test Item Value Reference Range Interpretation Comments Segs (test code = Segs) 52.6 45.0-75.0 [facility] [id number] 19:48:00 Test Item Value Reference Range Interpretation Comments Antibody Scrn (test Negative (11/14/17 2:48 code = Antibody Scrn) PM) [facility] [id number] 19:48:00 Test Item Value Reference Range Interpretation Comments ABO/Rh (test code = ABO/Rh) A POS [facility] HospitalGbmfwibCFYUCHWXLJ8739-16-25 19:48:00 Test Item Value Reference Range Interpretation Comments Lymphocytes # (test code = Lymphocytes 2.6 1.0-5.5 #) [facility] HospitalDqkcyleNRUUNWQWVM5600-40-20 19:48:00 Test Item Value Reference Range Interpretation Comments Segs-Bands # (test code = Segs-Bands #) 3.5 1.5-8.1 [facility] HospitalCkqjqfyEXWJNMPKFV8800-46-87 19:48:00 Test Item Value Reference Range Interpretation Comments Basophils (test code = 0.5 See_Comment [Aut omated message] The Basophils) system which ge nerated this result tra nsmitted reference range : <=1.0. The reference r katie was not used to int erpret this result as normal/abnormal . [facility] HospitalYbvgingTSLCVHMUJE2457-72-91 19:48:00 Test Item Value Reference Range Interpretation Comments Eosinophils (test code = 3.9 See_Comment [A utomated message] The Eosinophils) system which ge nerated this result tra nsmitted reference range : <=4.0. The reference r katie was not used to int erpret this result as normal/abnormal . [facility] HospitalLjdwsneEGQZNJZQAC6977-25-21 19:48:00 Test Item Value Reference Range Interpretation Comments Monocytes # (test code 0.3 See_Comment [Aut omated message] The = Monocytes #) system which generated this result tra nsmitted reference range : <=0.8. The reference r katie was not used to int erpret this result as normal/abnormal . [facility] HospitalNzsyjiyODZUFPTFBV5363-48-95 19:48:00 Test Item Value Reference Range Interpretation Comments Basophils # (test code 0.0 See_Comment [Aut omated message] The = Basophils #) system which generated this result tra nsmitted reference range : <=0.2. The reference r katie was not used to int erpret this result as normal/abnormal . [facility] CenterWudhoudBETOCNQIJZ8820-27-89 19:48:00 Test Item Value Reference Range Interpretation Comments Eosinophils # (test code 0.3 See_Comment [A utomated message] The = Eosinophils #) system whic h generated this result tra nsmitted reference range : <=0.5. The reference r katie was not used to int erpret this result as normal/abnormal . [facility] CenterHjtnffmUXYPZBKWKK1831-32-60 19:48:00 Test Item Value Reference Range Interpretation Comments Plt Morph (test code = Normal (11/14/17 2:48 Plt Morph) PM) [facility] HospitalSsdlpieYYGGGHBGVM7433-32-58 19:48:00 Test Item Value Reference Range Interpretation Comments RBC Morph (test code = Normal (11/14/17 2:48 RBC Morph) PM) [facility] CenterHvgkafrQXKJCUGPCF9908-79-89 19:48:00 Test Item Value Reference Range Interpretation Comments Monocytes (test code = Monocytes) 4.9 2.0-12.0 [facility] HospitalUvavsxxYWNERNLOCX3785-34-83 19:48:00 Test Item Value Reference Range Interpretation Comments Lymphocytes (test code = Lymphocytes) 38.1 20.0-40.0 [facility] HospitalXzhnbajUPRFJFCDBU9307-44-45 19:48:00 Test Item Value Reference Range Interpretation Comments Segs (test code = Segs) 52.6 45.0-75.0 [facility] [employer] AYIRHEQ2851-03-29 19:48:00 Test Item Value Reference Range Interpretation Comments Antibody Scrn (test Negative (11/14/17 2:48 code = Antibody Scrn) PM) [facility] HospitalwiMAN [id number] 19:48:00 Test Item Value Reference Range Interpretation Comments ABO/Rh (test code = ABO/Rh) A POS [facility] HospitalRecbnkyYUNPXPXBLQ5941-67-01 19:48:00 Test Item Value Reference Range Interpretation Comments Lymphocytes # (test code = Lymphocytes 2.6 1.0-5.5 #) [facility] HospitalNmdgllxNWUTOOUHFF8811-86-64 19:48:00 Test Item Value Reference Range Interpretation Comments Segs-Bands # (test code = Segs-Bands #) 3.5 1.5-8.1 [facility] HospitalQpfzlisGCFPEDQQLY8673-08-07 19:48:00 Test Item Value Reference Range Interpretation Comments Basophils (test code = 0.5 See_Comment [Aut omated message] The Basophils) system which ge nerated this result tra nsmitted reference range : <=1.0. The reference r katie was not used to int erpret this result as normal/abnormal . [facility] HospitalItqjipfMCNBGHGTQX6910-53-01 19:48:00 Test Item Value Reference Range Interpretation Comments Eosinophils (test code = 3.9 See_Comment [A utomated message] The Eosinophils) system which ge nerated this result tra nsmitted reference range : <=4.0. The reference r katie was not used to int erpret this result as normal/abnormal . [facility] HospitalFwrwvxsXRBOOKTMUX5571-26-97 19:48:00 Test Item Value Reference Range Interpretation Comments Monocytes # (test code 0.3 See_Comment [Aut omated message] The = Monocytes #) system which generated this result tra nsmitted reference range : <=0.8. The reference r katie was not used to int erpret this result as normal/abnormal . [facility] HospitalJigbyxsYUGTLSFYGO0294-15-62 19:48:00 Test Item Value Reference Range Interpretation Comments Basophils # (test code 0.0 See_Comment [Aut omated message] The = Basophils #) system which generated this result tra nsmitted reference range : <=0.2. The reference r katie was not used to int erpret this result as normal/abnormal . [facility] HospitalGxqkshrJJZZYQGVZB7981-44-19 19:48:00 Test Item Value Reference Range Interpretation Comments Eosinophils # (test code 0.3 See_Comment [A utomated message] The = Eosinophils #) system whic h generated this result tra nsmitted reference range : <=0.5. The reference r katie was not used to int erpret this result as normal/abnormal . [facility] HospitalSuzienrVPOEADIXGY7236-78-76 19:48:00 Test Item Value Reference Range Interpretation Comments Plt Morph (test code = Normal (11/14/17 2:48 Plt Morph) PM) [facility] HospitalOjoliicUOFKZSHYSM9823-84-05 19:48:00 Test Item Value Reference Range Interpretation Comments RBC Morph (test code = Normal (11/14/17 2:48 RBC Morph) PM) [facility] HospitalEdduyfkZFGSGHITQY0606-23-65 19:48:00 Test Item Value Reference Range Interpretation Comments Monocytes (test code = Monocytes) 4.9 2.0-12.0 [facility] HospitalLiycblpJBCQBKUFIU0827-72-28 19:48:00 Test Item Value Reference Range Interpretation Comments Lymphocytes (test code = Lymphocytes) 38.1 20.0-40.0 [facility] HospitalHeormzfQGTOKJRYUY8213-93-60 19:48:00 Test Item Value Reference Range Interpretation Comments Segs (test code = Segs) 52.6 45.0-75.0 [facility] [id number] 19:48:00 Test Item Value Reference Range Interpretation Comments Antibody Scrn (test Negative (11/14/17 2:48 code = Antibody Scrn) PM) [facility] QWNEUJA5184-18-18 19:48:00 Test Item Value Reference Range Interpretation Comments ABO/Rh (test code = ABO/Rh) A POS [facility] HospitalBknfcvmYIZEJZZMYD4155-11-73 19:48:00 Test Item Value Reference Range Interpretation Comments Lymphocytes # (test code = Lymphocytes 2.6 1.0-5.5 #) [facility] HospitalJzxgedjOUKVGEDVSS4399-23-54 19:48:00 Test Item Value Reference Range Interpretation Comments Segs-Bands # (test code = Segs-Bands #) 3.5 1.5-8.1 [facility] HospitalEvmykeiTMUNECRRFB7855-29-77 19:48:00 Test Item Value Reference Range Interpretation Comments Basophils (test code = 0.5 See_Comment [Aut omated message] The Basophils) system which ge nerated this result tra nsmitted reference range : <=1.0. The reference r katie was not used to int erpret this result as normal/abnormal . [facility] HospitalFlxucvjSMDZWGFZCF0601-07-82 19:48:00 Test Item Value Reference Range Interpretation Comments Eosinophils (test code = 3.9 See_Comment [A utomated message] The Eosinophils) system which ge nerated this result tra nsmitted reference range : <=4.0. The reference r katie was not used to int erpret this result as normal/abnormal . [facility] HospitalOagkxuhZWYSTHXGNF1552-64-89 19:48:00 Test Item Value Reference Range Interpretation Comments Monocytes # (test code 0.3 See_Comment [Aut omated message] The = Monocytes #) system which generated this result tra nsmitted reference range : <=0.8. The reference r katie was not used to int erpret this result as normal/abnormal . [facility] HospitalZnyoxzmSUXJGRKWXM7547-79-22 19:48:00 Test Item Value Reference Range Interpretation Comments Basophils # (test code 0.0 See_Comment [Aut omated message] The = Basophils #) system which generated this result tra nsmitted reference range : <=0.2. The reference r katie was not used to int erpret this result as normal/abnormal . [facility] HospitalTfzfgbiCAOCLWOEJT6325-36-18 19:48:00 Test Item Value Reference Range Interpretation Comments Eosinophils # (test code 0.3 See_Comment [A utomated message] The = Eosinophils #) system whic h generated this result tra nsmitted reference range : <=0.5. The reference r katie was not used to int erpret this result as normal/abnormal . [facility] HospitalLmfwylaFXLBUXQKYT2363-14-49 19:48:00 Test Item Value Reference Range Interpretation Comments Plt Morph (test code = Normal (11/14/17 2:48 Plt Morph) PM) [facility] HospitalQnuxktzROCZKQOFCM0188-81-97 19:48:00 Test Item Value Reference Range Interpretation Comments RBC Morph (test code = Normal (11/14/17 2:48 RBC Morph) PM) [facility] HospitalMsbcykoNZEMUXSXRA3937-43-67 19:48:00 Test Item Value Reference Range Interpretation Comments Monocytes (test code = Monocytes) 4.9 2.0-12.0 [facility] HospitalVsmqreqYBRYTCPNXS3635-13-16 19:48:00 Test Item Value Reference Range Interpretation Comments Lymphocytes (test code = Lymphocytes) 38.1 20.0-40.0 [facility] HospitalLpfsunsRBMKAIDVLT7475-96-50 19:48:00 Test Item Value Reference Range Interpretation Comments Segs (test code = Segs) 52.6 45.0-75.0 [facility]wi[facility] NJNDVMZ5111-49-07 19:48:00 Test Item Value Reference Range Interpretation Comments Antibody Scrn (test Negative (11/14/17 2:48 code = Antibody Scrn) PM) [facility]wi[facility] WRKTDUT2446-35-31 19:48:00 Test Item Value Reference Range Interpretation Comments ABO/Rh (test code = ABO/Rh) A POS [facility] HospitalGytxqilPVEELQKRYJ9159-73-55 19:48:00 Test Item Value Reference Range Interpretation Comments Lymphocytes # (test code = Lymphocytes 2.6 1.0-5.5 #) [facility]ZtptrwzCRABAEWBAG0281-51-13 19:48:00 Test Item Value Reference Range Interpretation Comments Segs-Bands # (test code = Segs-Bands #) 3.5 1.5-8.1 [facility] HospitalXwwcjyrVDVGHLLZEW3839-22-21 19:48:00 Test Item Value Reference Range Interpretation Comments Basophils (test code = 0.5 See_Comment [Aut omated message] The Basophils) system which ge nerated this result tra nsmitted reference range : <=1.0. The reference r katie was not used to int erpret this result as normal/abnormal . [facility] HospitalXuuklsrSQGLCABGCT9001-95-98 19:48:00 Test Item Value Reference Range Interpretation Comments Eosinophils (test code = 3.9 See_Comment [A utomated message] The Eosinophils) system which ge nerated this result tra nsmitted reference range : <=4.0. The reference r katie was not used to int erpret this result as normal/abnormal . [facility] HospitalKjbdlioQCSFTFGTXW6765-00-71 19:48:00 Test Item Value Reference Range Interpretation Comments Monocytes # (test code 0.3 See_Comment [Aut omated message] The = Monocytes #) system which generated this result tra nsmitted reference range : <=0.8. The reference r katie was not used to int erpret this result as normal/abnormal . [facility] HospitalElfaizbYQXHDPEFPG3941-84-70 19:48:00 Test Item Value Reference Range Interpretation Comments Basophils # (test code 0.0 See_Comment [Aut omated message] The = Basophils #) system which generated this result tra nsmitted reference range : <=0.2. The reference r katie was not used to int erpret this result as normal/abnormal . [facility] HospitalZdykrdmIBSBKOWPCR1950-16-14 19:48:00 Test Item Value Reference Range Interpretation Comments Eosinophils # (test code 0.3 See_Comment [A utomated message] The = Eosinophils #) system whic h generated this result tra nsmitted reference range : <=0.5. The reference r katie was not used to int erpret this result as normal/abnormal . [facility] HospitalOhmqvpqWAVJMMMOPI7265-85-45 19:48:00 Test Item Value Reference Range Interpretation Comments Plt Morph (test code = Normal (11/14/17 2:48 Plt Morph) PM) [facility] HospitalMhvofusDKHMXMHDTA9526-74-86 19:48:00 Test Item Value Reference Range Interpretation Comments RBC Morph (test code = Normal (11/14/17 2:48 RBC Morph) PM) [facility] HospitalHmcsiccTKLKKGAPFW2508-28-23 19:48:00 Test Item Value Reference Range Interpretation Comments Monocytes (test code = Monocytes) 4.9 2.0-12.0 [facility] HospitalHuoplmcAGXOXBVCNV5625-48-22 19:48:00 Test Item Value Reference Range Interpretation Comments Lymphocytes (test code = Lymphocytes) 38.1 20.0-40.0 [facility] HospitalYaovcdqEFCLUGNCPV4091-58-39 19:48:00 Test Item Value Reference Range Interpretation Comments Segs (test code = Segs) 52.6 45.0-75.0 [facility] HospitalRnuqhcfFMWLMYDTUD3173-73-42 18:39:00 Test Item Value Reference Range Interpretation Comments INR (test code = INR) 1.07 1 0.85-1.17 [facility] HospitalSufvkbpUFLWVVCXOY8674-96-07 18:39:00 Test Item Value Reference Range Interpretation Comments PT (test code = PT) 13.9 s 12.0-14.7 [facility]TdbypclCYIBIC9337-00-90 18:39:00 Test Item Value Reference Range Interpretation Comments CHD Risk (test code = CHD Risk) 3.19 1 3.90-5.80 [facility] CenterRsivghtQJLUDX3566-90-83 18:39:00 Test Item Value Reference Range Interpretation Comments VLDL (test code = VLDL) 24 1 [facility] CenterSxkqsdkACVODV9030-08-08 18:39:00 Test Item Value Reference Range Interpretation Comments LDL (Calculated) (test code = LDL 68 (Calculated)) [facility] CenterAhxdasfXDEUFK1458-85-93 18:39:00 Test Item Value Reference Range Interpretation Comments Trig (test code = Trig) 119 [facility] CenterKqsgnwsEIPJMU2144-65-94 18:39:00 Test Item Value Reference Range Interpretation Comments HDL (test code = HDL) 42 [facility] CenterVhciozzDZZVYV2426-72-61 18:39:00 Test Item Value Reference Range Interpretation Comments Chol (test code = Chol) 134 [facility] HospitalOugjcfuUMNPMWLBXR2922-04-65 18:39:00 Test Item Value Reference Range Interpretation Comments INR (test code = INR) 1.07 1 0.85-1.17 [facility] HospitalEpmoobcYCSQBJCUWG8165-94-49 18:39:00 Test Item Value Reference Range Interpretation Comments PT (test code = PT) 13.9 s 12.0-14.7 [facility] CenterOmhloutZKNWJU9957-63-87 18:39:00 Test Item Value Reference Range Interpretation Comments CHD Risk (test code = CHD Risk) 3.19 1 3.90-5.80 [facility] CenterGoxkgczRQLMSP8001-67-27 18:39:00 Test Item Value Reference Range Interpretation Comments VLDL (test code = VLDL) 24 1 [facility] CenterNocldwyYVVLNA1714-22-20 18:39:00 Test Item Value Reference Range Interpretation Comments LDL (Calculated) (test code = LDL 68 (Calculated)) [facility] CenterMtljpdqRDLLJT7253-25-45 18:39:00 Test Item Value Reference Range Interpretation Comments Trig (test code = Trig) 119 [facility] CenterEbsdmbkEBJKSS7980-25-38 18:39:00 Test Item Value Reference Range Interpretation Comments HDL (test code = HDL) 42 [facility] CenterOsmfnwtKDXNKS0822-12-02 18:39:00 Test Item Value Reference Range Interpretation Comments Chol (test code = Chol) 134 [facility] HospitalYghimdpCJZOMJJORL0945-63-11 18:39:00 Test Item Value Reference Range Interpretation Comments INR (test code = INR) 1.07 1 0.85-1.17 [facility] HospitalGdcvkwhHVRGGKBORJ2707-00-33 18:39:00 Test Item Value Reference Range Interpretation Comments PT (test code = PT) 13.9 s 12.0-14.7 [facility] CenterAeunkgkLJSTLW7479-71-39 18:39:00 Test Item Value Reference Range Interpretation Comments CHD Risk (test code = CHD Risk) 3.19 1 3.90-5.80 [facility] CenterQkwrcxtRRTGHH6827-73-99 18:39:00 Test Item Value Reference Range Interpretation Comments VLDL (test code = VLDL) 24 1 [facility] CenterGhdntqyUZWDKA4413-93-46 18:39:00 Test Item Value Reference Range Interpretation Comments LDL (Calculated) (test code = LDL 68 (Calculated)) [facility] CenterOjrqugeVJFBIN7711-47-51 18:39:00 Test Item Value Reference Range Interpretation Comments Trig (test code = Trig) 119 [facility] CenterGjfyrcoHJSKOY9575-79-26 18:39:00 Test Item Value Reference Range Interpretation Comments HDL (test code = HDL) 42 [facility] CenterUvnvjpmFBYNKE3006-87-66 18:39:00 Test Item Value Reference Range Interpretation Comments Chol (test code = Chol) 134 [facility] HospitalWxclvefHFSGIDORFQ8648-78-32 18:39:00 Test Item Value Reference Range Interpretation Comments INR (test code = INR) 1.07 1 0.85-1.17 [facility] HospitalNxwctbkVAHUCFYBWQ6876-06-03 18:39:00 Test Item Value Reference Range Interpretation Comments PT (test code = PT) 13.9 s 12.0-14.7 [facility] CenterEozgspuFYDRTL5694-84-91 18:39:00 Test Item Value Reference Range Interpretation Comments CHD Risk (test code = CHD Risk) 3.19 1 3.90-5.80 [facility] CenterMdqmdmhKXKPQB9837-06-08 18:39:00 Test Item Value Reference Range Interpretation Comments VLDL (test code = VLDL) 24 1 [facility] CenterWfvftskZTOCPT8022-87-80 18:39:00 Test Item Value Reference Range Interpretation Comments LDL (Calculated) (test code = LDL 68 (Calculated)) [facility] CenterKfdblizETFWGS6705-27-09 18:39:00 Test Item Value Reference Range Interpretation Comments Trig (test code = Trig) 119 [facility] CenterPrqdbzfHAJOOZ3757-82-05 18:39:00 Test Item Value Reference Range Interpretation Comments HDL (test code = HDL) 42 [facility] CenterDwjgvieZDDYAH0214-31-96 18:39:00 Test Item Value Reference Range Interpretation Comments Chol (test code = Chol) 134 [facility] HospitalDyuzswqJUEKAMSBND6233-22-27 18:39:00 Test Item Value Reference Range Interpretation Comments INR (test code = INR) 1.07 1 0.85-1.17 [facility] HospitalOahqiwiMYRJDOTKTB7291-49-88 18:39:00 Test Item Value Reference Range Interpretation Comments PT (test code = PT) 13.9 s 12.0-14.7 [facility] CenterZnipwdgOJKHUA3788-05-79 18:39:00 Test Item Value Reference Range Interpretation Comments CHD Risk (test code = CHD Risk) 3.19 1 3.90-5.80 [facility] CenterEjixpygVGCXCY3606-63-49 18:39:00 Test Item Value Reference Range Interpretation Comments VLDL (test code = VLDL) 24 1 [facility] CenterBiuzlxySQKWIT9168-75-80 18:39:00 Test Item Value Reference Range Interpretation Comments LDL (Calculated) (test code = LDL 68 (Calculated)) [facility] CenterPaocfnhDHOVWU5243-35-08 18:39:00 Test Item Value Reference Range Interpretation Comments Trig (test code = Trig) 119 [facility] CenterFpafbewIWNZVS7362-15-82 18:39:00 Test Item Value Reference Range Interpretation Comments HDL (test code = HDL) 42 [facility] CenterLcnhgamZAIOYS4474-78-20 18:39:00 Test Item Value Reference Range Interpretation Comments Chol (test code = Chol) 134 [facility] HospitalFucckefSVTCCKUITB8728-26-50 18:39:00 Test Item Value Reference Range Interpretation Comments INR (test code = INR) 1.07 1 0.85-1.17 [facility] HospitalBfnzoivHWSZJUUTBW0384-00-70 18:39:00 Test Item Value Reference Range Interpretation Comments PT (test code = PT) 13.9 s 12.0-14.7 [facility] CenterVbvricvIIOKTA3164-86-91 18:39:00 Test Item Value Reference Range Interpretation Comments CHD Risk (test code = CHD Risk) 3.19 1 3.90-5.80 [facility] CenterWecqwppRIUUMO5296-91-40 18:39:00 Test Item Value Reference Range Interpretation Comments VLDL (test code = VLDL) 24 1 [facility] CenterJckwjahUQMPOL6893-93-61 18:39:00 Test Item Value Reference Range Interpretation Comments LDL (Calculated) (test code = LDL 68 (Calculated)) [facility] CenterEvazsioGHHMIO8955-44-55 18:39:00 Test Item Value Reference Range Interpretation Comments Trig (test code = Trig) 119 [facility] CenterMegndofCZJPKX5504-78-01 18:39:00 Test Item Value Reference Range Interpretation Comments HDL (test code = HDL) 42 [facility] CenterMnbpwuyZUSZNS9844-02-78 18:39:00 Test Item Value Reference Range Interpretation Comments Chol (test code = Chol) 134 [facility] HospitalPezouikZROZKKOEFQ3565-30-91 14:20:00 Test Item Value Reference Range Interpretation Comments Basophils # (test code 0.1 See_Comment [Aut omated message] The = Basophils #) system which generated this result tra nsmitted reference range : <=0.2. The reference r katie was not used to int erpret this result as normal/abnormal . [facility] HospitalMkbejqdBMHROZPQNL7041-56-21 14:20:00 Test Item Value Reference Range Interpretation Comments Eosinophils # (test code 0.3 See_Comment [A utomated message] The = Eosinophils #) system [facility] generated this result tra nsmitted reference range : <=0.5. The reference r katie was not used to int erpret this result as normal/abnormal . [facility] HospitalUfggfazTHVPETXQAK9208-49-02 14:20:00 Test Item Value Reference Range Interpretation Comments Basophils (test code = 1.0 See_Comment [Aut omated message] The Basophils) system which ge nerated this result tra nsmitted reference range : <=1.0. The reference r katie was not used to int erpret this result as normal/abnormal . [facility] HospitalDgnvjnvUIGLGTXXZJ0499-37-16 14:20:00 Test Item Value Reference Range Interpretation Comments Basophils # (test code 0.1 See_Comment [Aut omated message] The = Basophils #) system which generated this result tra nsmitted reference range : <=0.2. The reference r katie was not used to int erpret this result as normal/abnormal . [facility] HospitalPvktyayRYWRQWWUOF9184-81-39 14:20:00 Test Item Value Reference Range Interpretation Comments Eosinophils # (test code 0.3 See_Comment [A utomated message] The = Eosinophils #) system [facility] generated this result tra nsmitted reference range : <=0.5. The reference r katie was not used to int erpret this result as normal/abnormal . [facility] HospitalVihacegVZRFITHQAC3534-55-60 14:20:00 Test Item Value Reference Range Interpretation Comments Basophils (test code = 1.0 See_Comment [Aut omated message] The Basophils) system which ge nerated this result tra nsmitted reference range : <=1.0. The reference r katie was not used to int erpret this result as normal/abnormal . [facility] HospitalWhongmtQCTGTMFAYC7443-69-88 14:20:00 Test Item Value Reference Range Interpretation Comments Basophils # (test code 0.1 See_Comment [Aut omated message] The = Basophils #) system which generated this result tra nsmitted reference range : <=0.2. The reference r katie was not used to int erpret this result as normal/abnormal . [facility] HospitalSzbtojpOWWTHSBNSP2685-62-82 14:20:00 Test Item Value Reference Range Interpretation Comments Eosinophils # (test code 0.3 See_Comment [A utomated message] The = Eosinophils #) system [facility] [employer] generated this result tra nsmitted reference range : <=0.5. The reference r katie was not used to int erpret this result as normal/abnormal . [facility] HospitalRzeoabxEYJRNCWUCE4163-59-62 14:20:00 Test Item Value Reference Range Interpretation Comments Basophils (test code = 1.0 See_Comment [Aut omated message] The Basophils) system which ge nerated this result tra nsmitted reference range : <=1.0. The reference r katie was not used to int erpret this result as normal/abnormal . [facility] HospitalSjgswpcWARRJULNXT1035-51-50 14:20:00 Test Item Value Reference Range Interpretation Comments Basophils # (test code 0.1 See_Comment [Aut omated message] The = Basophils #) system which generated this result tra nsmitted reference range : <=0.2. The reference r katie was not used to int erpret this result as normal/abnormal . [facility] HospitalFthawquVVBMLOWMBB5743-93-74 14:20:00 Test Item Value Reference Range Interpretation Comments Eosinophils # (test code 0.3 See_Comment [A utomated message] The = Eosinophils #) system [facility] [employer] generated this result tra nsmitted reference range : <=0.5. The reference r katie was not used to int erpret this result as normal/abnormal . [facility] HospitalIzhrcstVZEXFGNRCX1139-53-58 14:20:00 Test Item Value Reference Range Interpretation Comments Basophils (test code = 1.0 See_Comment [Aut omated message] The Basophils) system which ge nerated this result tra nsmitted reference range : <=1.0. The reference r katie was not used to int erpret this result as normal/abnormal . [facility] HospitalFywxsylTVXBFJFDAJ5454-15-34 14:20:00 Test Item Value Reference Range Interpretation Comments Basophils # (test code 0.1 See_Comment [Aut omated message] The = Basophils #) system which generated this result tra nsmitted reference range : <=0.2. The reference r katie was not used to int erpret this result as normal/abnormal . [facility] HospitalEwzkibaVWEESRKMBM5480-72-20 14:20:00 Test Item Value Reference Range Interpretation Comments Eosinophils # (test code 0.3 See_Comment [A utomated message] The = Eosinophils #) system [facility] [employer] generated this result tra nsmitted reference range : <=0.5. The reference r katie was not used to int erpret this result as normal/abnormal . [facility] HospitalQdjkpxoOPNIRRBADG8721-12-70 14:20:00 Test Item Value Reference Range Interpretation Comments Basophils (test code = 1.0 See_Comment [Aut omated message] The Basophils) system which ge nerated this result tra nsmitted reference range : <=1.0. The reference r katie was not used to int erpret this result as normal/abnormal . [facility] HospitalLirhwimPYNIFXPARB2646-78-11 14:20:00 Test Item Value Reference Range Interpretation Comments Basophils # (test code 0.1 See_Comment [Aut omated message] The = Basophils #) system which generated this result tra nsmitted reference range : <=0.2. The reference r katie was not used to int erpret this result as normal/abnormal . [facility] HospitalBwbxfvwOKFHNWGKAU3404-13-56 14:20:00 Test Item Value Reference Range Interpretation Comments Eosinophils # (test code 0.3 See_Comment [A utomated message] The = Eosinophils #) system [facility] [employer] generated this result tra nsmitted reference range : <=0.5. The reference r katie was not used to int erpret this result as normal/abnormal . [facility] HospitalKypfugqFTNUMBWVJE8109-83-95 14:20:00 Test Item Value Reference Range Interpretation Comments Basophils (test code = 1.0 See_Comment [Aut omated message] The Basophils) system which ge nerated this result tra nsmitted reference range : <=1.0. The reference r katie was not used to int erpret this result as normal/abnormal . [facility] HospitalShbpwflOHGURZYBJP4590-48-57 14:18:00 Test Item Value Reference Range Interpretation Comments POC Hemoglobin (test code = POC 10.2 12.0-16.0 Hemoglobin) [facility] HospitalOtkcmhbFXXQIWQNWB2638-45-03 14:18:00 Test Item Value Reference Range Interpretation Comments POC AGAP (test code = POC AGAP) 15.0 10.0-20.0 [facility] HospitalWoypkhkCXBOVZHNSG0272-74-36 14:18:00 Test Item Value Reference Range Interpretation Comments POC Creatinine (test code = POC 1.1 0.5-1.4 Creatinine) [facility] HospitalTzxhhmqCGLWGCJBXQ0728-70-91 14:18:00 Test Item Value Reference Range Interpretation Comments POC BUN (test code = POC BUN) 01-15 [facility] HospitalQuvdtpvZHAALWMQSJ4311-89-13 14:18:00 Test Item Value Reference Range Interpretation Comments POC Carbon Dioxide (test code = POC 27 24-32 Carbon Dioxide) [facility] HospitalSxhrpkgMWZSTDEIXA8985-18-86 14:18:00 Test Item Value Reference Range Interpretation Comments POC Glucose (test code = POC Glucose) 101 70-99 [facility] HospitalOwnetveOGSBKEDFEQ4987-26-03 14:18:00 Test Item Value Reference Range Interpretation Comments POC Ion Ca (test code = POC Ion Ca) 1.29 1.05-1.25 [facility] HospitalKlsvevrFXPDILBGDW7518-97-45 14:18:00 Test Item Value Reference Range Interpretation Comments POC Hematocrit (test code = POC 30.0 36.0-48.0 Hematocrit) [facility] HospitalBcdzdkyKDSLOJRUQX2392-67-09 14:18:00 Test Item Value Reference Range Interpretation Comments POC Chloride (test code = POC Chloride) 103 95-109 [facility] HospitalEluldkxBUVMZNCHOT6900-92-00 14:18:00 Test Item Value Reference Range Interpretation Comments POC Sodium (test code = POC Sodium) 139 135-145 [facility] HospitalRuowjaiCEMRVTHGSA0271-61-70 14:18:00 Test Item Value Reference Range Interpretation Comments POC Potassium (test code = POC 4.1 3.5-5.1 Potassium) [facility] HospitalAbjkmtoTQGGXNVATO7036-61-88 14:18:00 Test Item Value Reference Range Interpretation Comments POC Hemoglobin (test code = POC 10.2 12.0-16.0 Hemoglobin) [facility] HospitalKarmgzcXPWDWUSSYC4157-24-87 14:18:00 Test Item Value Reference Range Interpretation Comments POC AGAP (test code = POC AGAP) 15.0 10.0-20.0 [facility] HospitalPgdjcaqRLQRFPQLLN8921-07-20 14:18:00 Test Item Value Reference Range Interpretation Comments POC Creatinine (test code = POC 1.1 0.5-1.4 Creatinine) [facility] HospitalOkiuoejOIYGFYADDJ6092-50-76 14:18:00 Test Item Value Reference Range Interpretation Comments POC BUN (test code = POC BUN) 01-15 [facility] HospitalRyfbqmeKJLYZXAPSJ9060-92-22 14:18:00 Test Item Value Reference Range Interpretation Comments POC Carbon Dioxide (test code = POC 27 24-32 Carbon Dioxide) [facility] HospitalIiueafgJQAQWWIXIG2541-46-58 14:18:00 Test Item Value Reference Range Interpretation Comments POC Glucose (test code = POC Glucose) 101 70-99 [facility] HospitalMcyirbjMASFRHQEPT9849-48-11 14:18:00 Test Item Value Reference Range Interpretation Comments POC Ion Ca (test code = POC Ion Ca) 1.29 1.05-1.25 [facility] HospitalLojgertGJZODOIPGY9641-54-05 14:18:00 Test Item Value Reference Range Interpretation Comments POC Hematocrit (test code = POC 30.0 36.0-48.0 Hematocrit) [facility] HospitalSzqqbcuNUYBGLCNQO0453-65-60 14:18:00 Test Item Value Reference Range Interpretation Comments POC Chloride (test code = POC Chloride) 103 95-109 [facility] HospitalLlkjqgqPCOGQIVKXY7584-42-55 14:18:00 Test Item Value Reference Range Interpretation Comments POC Sodium (test code = POC Sodium) 139 135-145 [facility] HospitalRizmonhXVZOPKXHKH4512-41-28 14:18:00 Test Item Value Reference Range Interpretation Comments POC Potassium (test code = POC 4.1 3.5-5.1 Potassium) [facility] HospitalRmmzchbTGFBMQIIFC9475-04-35 14:18:00 Test Item Value Reference Range Interpretation Comments POC Hemoglobin (test code = POC 10.2 12.0-16.0 Hemoglobin) [facility] HospitalVkjdutkRUOFVCTVQC1766-50-28 14:18:00 Test Item Value Reference Range Interpretation Comments POC AGAP (test code = POC AGAP) 15.0 10.0-20.0 [facility] HospitalNpcqmgeRYCTLAPIGU4560-72-45 14:18:00 Test Item Value Reference Range Interpretation Comments POC Creatinine (test code = POC 1.1 0.5-1.4 Creatinine) [facility] HospitalGdkpfkoWLEXSMESVW2912-76-32 14:18:00 Test Item Value Reference Range Interpretation Comments POC BUN (test code = POC BUN) 01-15 [facility] HospitalOfivbydWFEZGFPCOU3175-97-55 14:18:00 Test Item Value Reference Range Interpretation Comments POC Carbon Dioxide (test code = POC 27 24-32 Carbon Dioxide) [facility] HospitalAogajpiEFCNNNMCFQ4117-49-68 14:18:00 Test Item Value Reference Range Interpretation Comments POC Glucose (test code = POC Glucose) 101 70-99 [facility] HospitalVgdwsveBDVOPIYWCI8031-38-46 14:18:00 Test Item Value Reference Range Interpretation Comments POC Ion Ca (test code = POC Ion Ca) 1.29 1.05-1.25 [facility] HospitalWybkbszTGBCAWPNCZ5363-63-91 14:18:00 Test Item Value Reference Range Interpretation Comments POC Hematocrit (test code = POC 30.0 36.0-48.0 Hematocrit) [facility] HospitalSwtxhwcZMMEEEXTMR9163-12-97 14:18:00 Test Item Value Reference Range Interpretation Comments POC Chloride (test code = POC Chloride) 103 95-109 [facility] HospitalIxsfqkzWRTCOEGTZH4716-81-81 14:18:00 Test Item Value Reference Range Interpretation Comments POC Sodium (test code = POC Sodium) 139 135-145 [facility] HospitalVwghdkjKAZFLVKSIF6187-42-67 14:18:00 Test Item Value Reference Range Interpretation Comments POC Potassium (test code = POC 4.1 3.5-5.1 Potassium) [facility] HospitalTlaicsvTACHSRJEVE8937-34-18 14:18:00 Test Item Value Reference Range Interpretation Comments POC Hemoglobin (test code = POC 10.2 12.0-16.0 Hemoglobin) [facility] HospitalWzwlhxgQAOESAEGBX6030-82-26 14:18:00 Test Item Value Reference Range Interpretation Comments POC AGAP (test code = POC AGAP) 15.0 10.0-20.0 [facility] HospitalFfuepsnDLOVEHYUAJ7304-37-54 14:18:00 Test Item Value Reference Range Interpretation Comments POC Creatinine (test code = POC 1.1 0.5-1.4 Creatinine) [facility] HospitalCddqfanUDUOFWEEWQ6471-62-26 14:18:00 Test Item Value Reference Range Interpretation Comments POC BUN (test code = POC BUN) 18 7-22 [facility] HospitalSitjvlaKEYBPJDIMI2101-98-16 14:18:00 Test Item Value Reference Range Interpretation Comments POC Carbon Dioxide (test code = POC 27 24-32 Carbon Dioxide) [facility] HospitalWlbadvrSMUUGVZXKX1085-67-90 14:18:00 Test Item Value Reference Range Interpretation Comments POC Glucose (test code = POC Glucose) 101 70-99 [facility] HospitalHlrkoxzCDHJOUVITM8173-50-33 14:18:00 Test Item Value Reference Range Interpretation Comments POC Ion Ca (test code = POC Ion Ca) 1.29 1.05-1.25 [facility] HospitalJrfsjldMWNAEIXGPX8429-23-08 14:18:00 Test Item Value Reference Range Interpretation Comments POC Hematocrit (test code = POC 30.0 36.0-48.0 Hematocrit) [facility] HospitalDigzjxlFPHLCTCVAA2380-92-23 14:18:00 Test Item Value Reference Range Interpretation Comments POC Chloride (test code = POC Chloride) 103 95-109 [facility]OfngpvfBLCYZXDSHM3529-90-21 14:18:00 Test Item Value Reference Range Interpretation Comments POC Sodium (test code = POC Sodium) 139 135-145 [facility] HospitalGumozbePXNOEXEKZV1044-68-63 14:18:00 Test Item Value Reference Range Interpretation Comments POC Potassium (test code = POC 4.1 3.5-5.1 Potassium) [facility] HospitalGjvbtyqUDIPWCDWHN4303-83-85 14:18:00 Test Item Value Reference Range Interpretation Comments POC Hemoglobin (test code = POC 10.2 12.0-16.0 Hemoglobin) [facility] HospitalRxhuvztFMSPQRPDAN9713-86-01 14:18:00 Test Item Value Reference Range Interpretation Comments POC AGAP (test code = POC AGAP) 15.0 10.0-20.0 [facility] HospitalHggjhefOSYTIOCOXH7352-13-91 14:18:00 Test Item Value Reference Range Interpretation Comments POC Creatinine (test code = POC 1.1 0.5-1.4 Creatinine) [facility] HospitalPzpoldxTCGDQGKJUZ9208-88-43 14:18:00 Test Item Value Reference Range Interpretation Comments POC BUN (test code = POC BUN) 18 7-22 [facility] HospitalBzvckfmGWLTVCRIXX3198-21-57 14:18:00 Test Item Value Reference Range Interpretation Comments POC Carbon Dioxide (test code = POC 27 24-32 Carbon Dioxide) [facility] HospitalXricriiXTFPGRMKIQ4209-55-32 14:18:00 Test Item Value Reference Range Interpretation Comments POC Glucose (test code = POC Glucose) 101 70-99 [facility] HospitalPkpwfajCLGITQJGOL8414-64-13 14:18:00 Test Item Value Reference Range Interpretation Comments POC Ion Ca (test code = POC Ion Ca) 1.29 1.05-1.25 [facility] HospitalIxabuejCSHOQYOHVZ9536-36-47 14:18:00 Test Item Value Reference Range Interpretation Comments POC Hematocrit (test code = POC 30.0 36.0-48.0 Hematocrit) [facility] HospitalJibhuyuTZIXERLYKT5912-75-31 14:18:00 Test Item Value Reference Range Interpretation Comments POC Chloride (test code = POC Chloride) 103 95-109 [facility] HospitalXbelatwIEKRMEFKRN3007-57-23 14:18:00 Test Item Value Reference Range Interpretation Comments POC Sodium (test code = POC Sodium) 139 135-145 [facility] HospitalTjisctrGSLSSZVJWT8936-24-72 14:18:00 Test Item Value Reference Range Interpretation Comments POC Potassium (test code = POC 4.1 3.5-5.1 Potassium) [facility] HospitalTbopmycHRVRURDBJZ7331-14-30 14:18:00 Test Item Value Reference Range Interpretation Comments POC Hemoglobin (test code = POC 10.2 12.0-16.0 Hemoglobin) [facility] HospitalYfqsbdjHMPIMGSCYZ1199-22-53 14:18:00 Test Item Value Reference Range Interpretation Comments POC AGAP (test code = POC AGAP) 15.0 10.0-20.0 [facility] HospitalYmwcelqFTTYOGYHPC5566-79-95 14:18:00 Test Item Value Reference Range Interpretation Comments POC Creatinine (test code = POC 1.1 0.5-1.4 Creatinine) [facility] HospitalQivtbmnPOTUIVNARB5208-75-91 14:18:00 Test Item Value Reference Range Interpretation Comments POC BUN (test code = POC BUN) 18 7-22 [facility] HospitalZkxfarxGZEMLSKKES2514-47-46 14:18:00 Test Item Value Reference Range Interpretation Comments POC Carbon Dioxide (test code = POC 27 24-32 Carbon Dioxide) [facility] HospitalXrfmbnsJJPDSORTAF7041-09-90 14:18:00 Test Item Value Reference Range Interpretation Comments POC Glucose (test code = POC Glucose) 101 70-99 [facility] HospitalRxjopguEUXEZDFCWE2452-77-77 14:18:00 Test Item Value Reference Range Interpretation Comments POC Ion Ca (test code = POC Ion Ca) 1.29 1.05-1.25 [facility] HospitalAfvrxbiUBCCSHUUWK6295-47-66 14:18:00 Test Item Value Reference Range Interpretation Comments POC Hematocrit (test code = POC 30.0 36.0-48.0 Hematocrit) [facility] HospitalKhqbodfRHPDHHBMFG9047-54-54 14:18:00 Test Item Value Reference Range Interpretation Comments POC Chloride (test code = POC Chloride) 103 95-109 [facility] HospitalSsjosxiIXBTBDWKCE2834-56-88 14:18:00 Test Item Value Reference Range Interpretation Comments POC Sodium (test code = POC Sodium) 139 135-145 [facility] HospitalBhoecfrFELOWTALNR6808-21-46 14:18:00 Test Item Value Reference Range Interpretation Comments POC Potassium (test code = POC 4.1 3.5-5.1 Potassium) [facility]YxpiikmAYHJBZKCMZQL6244-64-41 14:05:00 Test Item Value Reference Range Interpretation Comments POC Sodium (test code = POC Sodium) 138 135-145 [facility] HospitalRpknqdbKHVPBSRWXZJZ2395-58-07 14:05:00 Test Item Value Reference Range Interpretation Comments POC Hemoglobin (test code = POC 7.8 12.0-16.0 Hemoglobin) [facility] HospitalJuixovuRPCFDRZRLAJT6991-68-94 14:05:00 Test Item Value Reference Range Interpretation Comments POC Glucose (test code = POC Glucose) 101 70-99 [facility] HospitalAdhfhqqDIPZTKVANKBW5997-29-71 14:05:00 Test Item Value Reference Range Interpretation Comments POC Ion Ca (test code = POC Ion Ca) 1.30 1.05-1.25 [facility] HospitalIlulffdZABDIUMUVAFA7029-26-59 14:05:00 Test Item Value Reference Range Interpretation Comments POC Hematocrit (test code = POC 23.0 36.0-48.0 Hematocrit) [facility] HospitalZfdohmdELMRATEGFROB7012-08-88 14:05:00 Test Item Value Reference Range Interpretation Comments POC Creatinine (test code = POC 1.0 0.5-1.4 Creatinine) [facility] HospitalEuxwedcPLBZEBGAEGAC0765-09-77 14:05:00 Test Item Value Reference Range Interpretation Comments POC BUN (test code = POC BUN) 21 7-22 [facility] HospitalPmitdqpLKOOREESMFUI7838-31-55 14:05:00 Test Item Value Reference Range Interpretation Comments POC Carbon Dioxide (test code = POC 29 24-32 Carbon Dioxide) [facility] HospitalVhqipxoEKEZQIDEJXPO7620-32-96 14:05:00 Test Item Value Reference Range Interpretation Comments POC AGAP (test code = POC AGAP) 11.0 10.0-20.0 [facility] HospitalQkcfzffQZCNHXSVEAAI1333-34-00 14:05:00 Test Item Value Reference Range Interpretation Comments POC Chloride (test code = POC Chloride) 104 95-109 [facility] HospitalPuzlapwVRMKVBDTTEQG4761-81-11 14:05:00 Test Item Value Reference Range Interpretation Comments POC Potassium (test code = POC 4.6 3.5-5.1 Potassium) [facility] HospitalBwmgkswPCIFODMPEZZR1608-28-29 14:05:00 Test Item Value Reference Range Interpretation Comments POC Sodium (test code = POC Sodium) 138 135-145 [facility] HospitalDcqxeefSDLSVYLFNRLI2819-98-54 14:05:00 Test Item Value Reference Range Interpretation Comments POC Hemoglobin (test code = POC 7.8 12.0-16.0 Hemoglobin) [facility] HospitalJroxlimNWHPZYTZWXTK9352-56-44 14:05:00 Test Item Value Reference Range Interpretation Comments POC Glucose (test code = POC Glucose) 101 70-99 [facility] HospitalPwhycnvYKXPLXCLSFXJ0080-03-28 14:05:00 Test Item Value Reference Range Interpretation Comments POC Ion Ca (test code = POC Ion Ca) 1.30 1.05-1.25 [facility] HospitalUisjmxlMRVZAYGOCMHN2698-09-68 14:05:00 Test Item Value Reference Range Interpretation Comments POC Hematocrit (test code = POC 23.0 36.0-48.0 Hematocrit) [facility] HospitalBnjkocoFSBYJCFEUTFV1228-78-30 14:05:00 Test Item Value Reference Range Interpretation Comments POC Creatinine (test code = POC 1.0 0.5-1.4 Creatinine) [facility] HospitalAewqdqpAXYHEESALDRU1941-65-99 14:05:00 Test Item Value Reference Range Interpretation Comments POC BUN (test code = POC BUN) 21 7-22 [facility] HospitalKrqjsdlRXJMAIZWUOUX8443-60-51 14:05:00 Test Item Value Reference Range Interpretation Comments POC Carbon Dioxide (test code = POC 29 24-32 Carbon Dioxide) [facility] HospitalXuxntwlUVKWZDWSYNAJ3546-85-41 14:05:00 Test Item Value Reference Range Interpretation Comments POC AGAP (test code = POC AGAP) 11.0 10.0-20.0 [facility] HospitalUrdljsuCHMQFLRCGBSR2454-04-12 14:05:00 Test Item Value Reference Range Interpretation Comments POC Chloride (test code = POC Chloride) 104 95-109 [facility] HospitalPsgrcyaHWIUJDGTXSBZ9371-77-21 14:05:00 Test Item Value Reference Range Interpretation Comments POC Potassium (test code = POC 4.6 3.5-5.1 Potassium) [facility] HospitalXnbextiLQJPRCNDRPKT6092-27-07 14:05:00 Test Item Value Reference Range Interpretation Comments POC Sodium (test code = POC Sodium) 138 135-145 [facility] HospitalSrlncnfKYSFVGVPEHMV2956-57-60 14:05:00 Test Item Value Reference Range Interpretation Comments POC Hemoglobin (test code = POC 7.8 12.0-16.0 Hemoglobin) [facility] HospitalGtbmcyxAYNDJAVPABEA5964-01-01 14:05:00 Test Item Value Reference Range Interpretation Comments POC Glucose (test code = POC Glucose) 101 70-99 [facility] HospitalNavylrtYSUQDNVQWOIF8154-59-03 14:05:00 Test Item Value Reference Range Interpretation Comments POC Ion Ca (test code = POC Ion Ca) 1.30 1.05-1.25 [facility] HospitalUibobsmPPYCSKNZCGGK0021-25-11 14:05:00 Test Item Value Reference Range Interpretation Comments POC Hematocrit (test code = POC 23.0 36.0-48.0 Hematocrit) [facility] HospitalPhurcjuBGRELTRTCELA1823-37-38 14:05:00 Test Item Value Reference Range Interpretation Comments POC Creatinine (test code = POC 1.0 0.5-1.4 Creatinine) [facility] HospitalPilpqmsJUKSZLXMTAKT2110-52-63 14:05:00 Test Item Value Reference Range Interpretation Comments POC BUN (test code = POC BUN) 21 7-22 [facility] HospitalFwfvjheRAWLAIHOHYAF7473-76-08 14:05:00 Test Item Value Reference Range Interpretation Comments POC Carbon Dioxide (test code = POC 29 24-32 Carbon Dioxide) [facility] HospitalVyohyofXJLVNWNCUWMU9088-19-61 14:05:00 Test Item Value Reference Range Interpretation Comments POC AGAP (test code = POC AGAP) 11.0 10.0-20.0 [facility] HospitalGcpnqwoIYSCOMGLDSIF3493-53-58 14:05:00 Test Item Value Reference Range Interpretation Comments POC Chloride (test code = POC Chloride) 104 95-109 [facility] HospitalPrcyszzFTEKPKSLCUJO8523-19-57 14:05:00 Test Item Value Reference Range Interpretation Comments POC Potassium (test code = POC 4.6 3.5-5.1 Potassium) [facility] HospitalUoarxlrWSUNKCDYXGBQ6790-79-87 14:05:00 Test Item Value Reference Range Interpretation Comments POC Sodium (test code = POC Sodium) 138 135-145 [facility] HospitalIzseostQSESBGZDRHVC6407-44-97 14:05:00 Test Item Value Reference Range Interpretation Comments POC Hemoglobin (test code = POC 7.8 12.0-16.0 Hemoglobin) [facility] HospitalGfaqwyqLJYDEPEHXCFK1457-00-89 14:05:00 Test Item Value Reference Range Interpretation Comments POC Glucose (test code = POC Glucose) 101 70-99 [facility] HospitalZxnexlbVKGGEMCDWTYH3853-79-63 14:05:00 Test Item Value Reference Range Interpretation Comments POC Ion Ca (test code = POC Ion Ca) 1.30 1.05-1.25 [facility] HospitalXrmdfsgUDLENRYLDZZH9670-32-95 14:05:00 Test Item Value Reference Range Interpretation Comments POC Hematocrit (test code = POC 23.0 36.0-48.0 Hematocrit) [facility] HospitalFbiuarzSNHNNPSIVSZW9141-63-57 14:05:00 Test Item Value Reference Range Interpretation Comments POC Creatinine (test code = POC 1.0 0.5-1.4 Creatinine) [facility] HospitalPtemdnqGYNSPYEOHSNF5346-67-03 14:05:00 Test Item Value Reference Range Interpretation Comments POC BUN (test code = POC BUN) 14 01- [facility] HospitalPwdosyqWPQRCDQDTMFD5890-22-84 14:05:00 Test Item Value Reference Range Interpretation Comments POC Carbon Dioxide (test code = POC 29 24-32 Carbon Dioxide) [facility] HospitalJpsveywXHBTZGHRSHUC7846-79-18 14:05:00 Test Item Value Reference Range Interpretation Comments POC AGAP (test code = POC AGAP) 11.0 10.0-20.0 [facility] HospitalBbhnadgWXVYGJSOGUNX2824-09-35 14:05:00 Test Item Value Reference Range Interpretation Comments POC Chloride (test code = POC Chloride) 104 95-109 [facility] HospitalVvrymmpCPLJGXHIRWEV7873-32-79 14:05:00 Test Item Value Reference Range Interpretation Comments POC Potassium (test code = POC 4.6 3.5-5.1 Potassium) [facility] HospitalVtkaxeoPOCSWPEUMONL5389-09-58 14:05:00 Test Item Value Reference Range Interpretation Comments POC Sodium (test code = POC Sodium) 138 135-145 [facility] HospitalXlffdtyYOPDIINUJOIA1668-82-11 14:05:00 Test Item Value Reference Range Interpretation Comments POC Hemoglobin (test code = POC 7.8 12.0-16.0 Hemoglobin) [facility] HospitalDacvsveFHFLVHFTZVWC4599-97-50 14:05:00 Test Item Value Reference Range Interpretation Comments POC Glucose (test code = POC Glucose) 101 70-99 [facility] HospitalGroujtuOUIEIGLYFITX6857-80-40 14:05:00 Test Item Value Reference Range Interpretation Comments POC Ion Ca (test code = POC Ion Ca) 1.30 1.05-1.25 [facility] HospitalXbskvpuJNBZUYQQNJNV6492-81-61 14:05:00 Test Item Value Reference Range Interpretation Comments POC Hematocrit (test code = POC 23.0 36.0-48.0 Hematocrit) [facility] HospitalGqehiesXKTPKHZLTVLV2609-63-41 14:05:00 Test Item Value Reference Range Interpretation Comments POC Creatinine (test code = POC 1.0 0.5-1.4 Creatinine) [facility] HospitalDlwivxmSYLXLHFEQBFR1214-19-02 14:05:00 Test Item Value Reference Range Interpretation Comments POC BUN (test code = POC BUN) 21 7-22 [facility] HospitalPjlqmwiXLPEZNMWTWYZ9858-80-81 14:05:00 Test Item Value Reference Range Interpretation Comments POC Carbon Dioxide (test code = POC 29 24-32 Carbon Dioxide) [facility] HospitalRajfqvzEHGBFKAPNNKA1118-19-43 14:05:00 Test Item Value Reference Range Interpretation Comments POC AGAP (test code = POC AGAP) 11.0 10.0-20.0 [facility] HospitalDjyjrtjWFRBMXLZYVDW3762-11-24 14:05:00 Test Item Value Reference Range Interpretation Comments POC Chloride (test code = POC Chloride) 104 95-109 [facility] HospitalMmfpxayGLFOUFSRZFEY2202-84-80 14:05:00 Test Item Value Reference Range Interpretation Comments POC Potassium (test code = POC 4.6 3.5-5.1 Potassium) [facility] HospitalEvkyshhMFNENKEJCELX5974-64-56 14:05:00 Test Item Value Reference Range Interpretation Comments POC Sodium (test code = POC Sodium) 138 135-145 [facility] HospitalObljdouIOPCKNQYHSWN6862-24-93 14:05:00 Test Item Value Reference Range Interpretation Comments POC Hemoglobin (test code = POC 7.8 12.0-16.0 Hemoglobin) [facility] HospitalVfqcqoxVDZRDGYDJLKU5118-42-60 14:05:00 Test Item Value Reference Range Interpretation Comments POC Glucose (test code = POC Glucose) 101 70-99 [facility] HospitalQvjcohaGIPQJQWPGVMI2791-19-35 14:05:00 Test Item Value Reference Range Interpretation Comments POC Ion Ca (test code = POC Ion Ca) 1.30 1.05-1.25 [facility] HospitalTljhiukXHTLRWXMSVQS3777-32-82 14:05:00 Test Item Value Reference Range Interpretation Comments POC Hematocrit (test code = POC 23.0 36.0-48.0 Hematocrit) [facility] HospitalKgieeqpFSPLBPJGMLNB3249-90-26 14:05:00 Test Item Value Reference Range Interpretation Comments POC Creatinine (test code = POC 1.0 0.5-1.4 Creatinine) [facility] HospitalSlyqheoVXETSZXNNVIH1280-92-06 14:05:00 Test Item Value Reference Range Interpretation Comments POC BUN (test code = POC BUN) 21 7-22 [facility] HospitalNcjjunuGQJBGAZDTPGL2677-89-84 14:05:00 Test Item Value Reference Range Interpretation Comments POC Carbon Dioxide (test code = POC 29 24-32 Carbon Dioxide) [facility] HospitalYqfeyegXSEPKGNTRZGC8886-80-45 14:05:00 Test Item Value Reference Range Interpretation Comments POC AGAP (test code = POC AGAP) 11.0 10.0-20.0 [facility] HospitalOrkkydrPNCQBEEXQNAE8491-39-15 14:05:00 Test Item Value Reference Range Interpretation Comments POC Chloride (test code = POC Chloride) 104 95-109 [facility] HospitalRjrkvarVXHLCLTTQGOB2955-60-52 14:05:00 Test Item Value Reference Range Interpretation Comments POC Potassium (test code = POC 4.6 3.5-5.1 Potassium) [facility]2018-05-11 17:08:00 Test Item Value Reference Range Interpretation Comments eGFR (test code = eGFR) 59 [facility]2018-05-11 17:08:00 Test Item Value Reference Range Interpretation Comments POC Creatinine (test code = POC 1.0 0.5-1.4 Creatinine) [facility]2018-05-11 17:08:00 Test Item Value Reference Range Interpretation Comments eGFR (test code = eGFR) 59 [facility]2018-05-11 17:08:00 Test Item Value Reference Range Interpretation Comments POC Creatinine (test code = POC 1.0 0.5-1.4 Creatinine) [facility]2018-05-11 17:08:00 Test Item Value Reference Range Interpretation Comments eGFR (test code = eGFR) 59 [facility]2018-05-11 17:08:00 Test Item Value Reference Range Interpretation Comments POC Creatinine (test code = POC 1.0 0.5-1.4 Creatinine) [facility]2018-05-11 17:08:00 Test Item Value Reference Range Interpretation Comments eGFR (test code = eGFR) 59 [facility]2018-05-11 17:08:00 Test Item Value Reference Range Interpretation Comments POC Creatinine (test code = POC 1.0 0.5-1.4 Creatinine) [facility]2018-05-11 17:08:00 Test Item Value Reference Range Interpretation Comments eGFR (test code = eGFR) 59 [facility]2018-05-11 17:08:00 Test Item Value Reference Range Interpretation Comments POC Creatinine (test code = POC 1.0 0.5-1.4 Creatinine) [facility]2018-05-11 17:08:00 Test Item Value Reference Range Interpretation Comments eGFR (test code = eGFR) 59 [place] 937618-05-11 17:08:00 Test Item Value Reference Range Interpretation Comments POC Creatinine (test code = POC 1.0 0.5-1.4 Creatinine) [facility]2016-06-13 17:32:00 Test Item Value Reference Range Interpretation Comments eGFR (test code = eGFR) 60 [facility]2016-06-13 17:32:00 Test Item Value Reference Range Interpretation Comments POC Creatinine (test code = POC 1.0 0.5-1.4 Creatinine) [facility]2016-06-13 17:32:00 Test Item Value Reference Range Interpretation Comments eGFR (test code = eGFR) 60 [facility]2016-06-13 17:32:00 Test Item Value Reference Range Interpretation Comments POC Creatinine (test code = POC 1.0 0.5-1.4 Creatinine) [facility]2016-06-13 17:32:00 Test Item Value Reference Range Interpretation Comments eGFR (test code = eGFR) 60 [facility]2016-06-13 17:32:00 Test Item Value Reference Range Interpretation Comments POC Creatinine (test code = POC 1.0 0.5-1.4 Creatinine) [facility]2016-06-13 17:32:00 Test Item Value Reference Range Interpretation Comments eGFR (test code = eGFR) 60 [facility]2016-06-13 17:32:00 Test Item Value Reference Range Interpretation Comments POC Creatinine (test code = POC 1.0 0.5-1.4 Creatinine) [facility]2016-06-13 17:32:00 Test Item Value Reference Range Interpretation Comments eGFR (test code = eGFR) 60 [facility]2016-06-13 17:32:00 Test Item Value Reference Range Interpretation Comments POC Creatinine (test code = POC 1.0 0.5-1.4 Creatinine) [facility]2016-06-13 17:32:00 Test Item Value Reference Range Interpretation Comments eGFR (test code = eGFR) 60 [facility]2016-06-13 17:32:00 Test Item Value Reference Range Interpretation Comments POC Creatinine (test code = POC 1.0 0.5-1.4 Creatinine) [facility]2014-08-17 10:00:00 Test Item Value Reference Range Interpretation Comments eGFR (test code = eGFR) 69 [facility]2014-08-17 10:00:00 Test Item Value Reference Range Interpretation Comments Sodium Lvl (test code = Sodium Lvl) 137 135-145 [facility]2014-08-17 10:00:00 Test Item Value Reference Range Interpretation Comments Potassium Lvl (test code = Potassium 4.2 3.5-5.1 Lvl) [facility]2014-08-17 10:00:00 Test Item Value Reference Range Interpretation Comments Chloride Lvl (test code = Chloride Lvl) 105 95-109 [facility]2014-08-17 10:00:00 Test Item Value Reference Range Interpretation Comments BUN (test code = BUN) 9 7-22 [facility]2014-08-17 10:00:00 Test Item Value Reference Range Interpretation Comments Creatinine Lvl (test code = Creatinine 0.9 0.5-1.4 Lvl) [facility]2014-08-17 10:00:00 Test Item Value Reference Range Interpretation Comments Glucose Lvl (test code = Glucose Lvl) 144 70-99 [facility]2014-08-17 10:00:00 Test Item Value Reference Range Interpretation Comments CO2 (test code = CO2) 25 24-32 [facility]2014-08-17 10:00:00 Test Item Value Reference Range Interpretation Comments Calcium Lvl (test code = Calcium Lvl) 8.4 8.5-10.5 [facility]2014-08-17 10:00:00 Test Item Value Reference Range Interpretation Comments AGAP (test code = AGAP) 11.2 10.0-20.0 [facility]2014-08-17 10:00:00 Test Item Value Reference Range Interpretation Comments Magnesium Lvl (test code = Magnesium 1.6 1.8-2.4 Lvl) [facility]PfsbnhrWDJPLGLDQI2036-67-90 10:00:00 Test Item Value Reference Range Interpretation Comments INR (test code = INR) 0.99 0.85-1.17 [facility] HospitalSrigwclWZBDUPSQMY4711-07-01 10:00:00 Test Item Value Reference Range Interpretation Comments PT (test code = PT) 13.0 s 12.0-14.7 [facility] HospitalPzzufpgGSJVLHMRNY6273-00-41 10:00:00 Test Item Value Reference Range Interpretation Comments PTT (test code = PTT) 32.2 s 22.9-35.8 [facility] HospitalXfzcypfYFAQBAIPBT4075-46-85 10:00:00 Test Item Value Reference Range Interpretation Comments Platelet (test code = Platelet) 156 133-450 [facility] HospitalPubugerXYWKUDTYHG3240-55-76 10:00:00 Test Item Value Reference Range Interpretation Comments RDW (test code = RDW) 18.5 11.5-14.5 [facility] HospitalReizqseKTWXMJEGXD9793-84-00 10:00:00 Test Item Value Reference Range Interpretation Comments MPV (test code = MPV) 7.4 7.4-10.4 [facility] HospitalLmquggkHYAGUBTGMS2029-61-78 10:00:00 Test Item Value Reference Range Interpretation Comments WBC (test code = WBC) 8.5 3.7-10.4 [facility] HospitalUmtysisUAAHSLXOPK0627-23-95 10:00:00 Test Item Value Reference Range Interpretation Comments RBC (test code = RBC) 3.09 4.20-5.40 [facility] HospitalQyuapdhZIIHVCJZPG9792-04-68 10:00:00 Test Item Value Reference Range Interpretation Comments Hct (test code = Hct) 28.3 36.0-48.0 [facility] HospitalEcynpsoCLLQVCTUPS9453-84-01 10:00:00 Test Item Value Reference Range Interpretation Comments MCH (test code = MCH) 31.4 pg 27.0-31.0 [facility] HospitalHxqdghqZRISTHOAKO8849-56-47 10:00:00 Test Item Value Reference Range Interpretation Comments MCV (test code = MCV) 91.6 81.0-99.0 [facility] HospitalKnjistcEXVNWGAKGL7550-43-85 10:00:00 Test Item Value Reference Range Interpretation Comments MCHC (test code = MCHC) 34.3 32.0-36.0 [facility] HospitalUlikmfqCMJRDJBZRO8109-49-43 10:00:00 Test Item Value Reference Range Interpretation Comments Hgb (test code = Hgb) 9.7 12.0-16.0 [facility] HospitalSadbnshIBLOCPLXCO9716-30-58 10:00:00 Test Item Value Reference Range Interpretation Comments Lymphocytes (test code = Lymphocytes) 22.6 20.0-40.0 [facility] HospitalCsbgoztAAZMAYULGO0276-90-05 10:00:00 Test Item Value Reference Range Interpretation Comments Segs (test code = Segs) 66.9 45.0-75.0 [facility] HospitalHecwqjzFLPASLPMWK3417-96-39 10:00:00 Test Item Value Reference Range Interpretation Comments Monocytes (test code = Monocytes) 7.0 2.0-12.0 [facility] HospitalKzonghhNDFAXCDWJV5157-53-43 10:00:00 Test Item Value Reference Range Interpretation Comments Basophils (test code = 0.5 See_Comment [Aut omated message] The Basophils) system which ge nerated this result tra nsmitted reference range : <=1.0. The reference r katie was not used to int erpret this result as normal/abnormal . [facility] HospitalPuzirkrGDGONPYRXI7543-68-71 10:00:00 Test Item Value Reference Range Interpretation Comments Eosinophils (test code = 3.0 See_Comment [A utomated message] The Eosinophils) system which ge nerated this result tra nsmitted reference range : <=4.0. The reference r katie was not used to int erpret this result as normal/abnormal . [facility] HospitalNgyzairXOAZSEARHS6009-76-84 10:00:00 Test Item Value Reference Range Interpretation Comments Segs-Bands # (test code = Segs-Bands #) 5.7 1.5-8.1 [facility] HospitalDqpmbflHGMEODWSVN2304-37-05 10:00:00 Test Item Value Reference Range Interpretation Comments Basophils # (test code 0.0 See_Comment [Aut omated message] The = Basophils #) system which generated this result tra nsmitted reference range : <=0.2. The reference r katie was not used to int erpret this result as normal/abnormal . [facility]DuxgxbmVGDVQDPFTM7804-98-38 10:00:00 Test Item Value Reference Range Interpretation Comments Eosinophils # (test code 0.3 See_Comment [A utomated message] The = Eosinophils #) system whic h generated this result tra nsmitted reference range : <=0.5. The reference r katie was not used to int erpret this result as normal/abnormal . [facility] HospitalBeyafwrLPSGGPMBWR3962-18-92 10:00:00 Test Item Value Reference Range Interpretation Comments Lymphocytes # (test code = Lymphocytes 1.9 1.0-5.5 #) [facility] HospitalMchuautSURWHPSLSI7894-13-78 10:00:00 Test Item Value Reference Range Interpretation Comments Monocytes # (test code 0.6 See_Comment [Aut omated message] The = Monocytes #) system which generated this result tra nsmitted reference range : <=0.8. The reference r katie was not used to int erpret this result as normal/abnormal . [facility]2014-08-17 10:00:00 Test Item Value Reference Range Interpretation Comments eGFR (test code = eGFR) 69 [facility]2014-08-17 10:00:00 Test Item Value Reference Range Interpretation Comments Sodium Lvl (test code = Sodium Lvl) 137 135-145 [facility]2014-08-17 10:00:00 Test Item Value Reference Range Interpretation Comments Potassium Lvl (test code = Potassium 4.2 3.5-5.1 Lvl) [facility]2014-08-17 10:00:00 Test Item Value Reference Range Interpretation Comments Chloride Lvl (test code = Chloride Lvl) 105 95-109 [facility]2014-08-17 10:00:00 Test Item Value Reference Range Interpretation Comments BUN (test code = BUN) 9 7-22 [facility]2014-08-17 10:00:00 Test Item Value Reference Range Interpretation Comments Creatinine Lvl (test code = Creatinine 0.9 0.5-1.4 Lvl) [facility]2014-08-17 10:00:00 Test Item Value Reference Range Interpretation Comments Glucose Lvl (test code = Glucose Lvl) 144 70-99 [facility]2014-08-17 10:00:00 Test Item Value Reference Range Interpretation Comments CO2 (test code = CO2) 25 24-32 [facility]2014-08-17 10:00:00 Test Item Value Reference Range Interpretation Comments Calcium Lvl (test code = Calcium Lvl) 8.4 8.5-10.5 [facility]2014-08-17 10:00:00 Test Item Value Reference Range Interpretation Comments AGAP (test code = AGAP) 11.2 10.0-20.0 [facility]2014-08-17 10:00:00 Test Item Value Reference Range Interpretation Comments Magnesium Lvl (test code = Magnesium 1.6 1.8-2.4 Lvl) [facility] HospitalHgasfmjXUNJYKEMFW2845-59-53 10:00:00 Test Item Value Reference Range Interpretation Comments INR (test code = INR) 0.99 0.85-1.17 [facility] HospitalHwebxbhHXNLOBWHLC5505-90-36 10:00:00 Test Item Value Reference Range Interpretation Comments PT (test code = PT) 13.0 s 12.0-14.7 [facility] HospitalMqedcbvJNDYOOXZSX5231-41-79 10:00:00 Test Item Value Reference Range Interpretation Comments PTT (test code = PTT) 32.2 s 22.9-35.8 [facility] HospitalImxpfjmEKZBLKBLRC0114-72-60 10:00:00 Test Item Value Reference Range Interpretation Comments Platelet (test code = Platelet) 156 133-450 [facility] HospitalMqexvihOXKVMBJWPS9406-20-34 10:00:00 Test Item Value Reference Range Interpretation Comments RDW (test code = RDW) 18.5 11.5-14.5 [facility] HospitalXyhfcesTFSTWKOAXS6185-37-00 10:00:00 Test Item Value Reference Range Interpretation Comments MPV (test code = MPV) 7.4 7.4-10.4 [facility] HospitalDoerregOOAVHOBSMC4963-27-92 10:00:00 Test Item Value Reference Range Interpretation Comments WBC (test code = WBC) 8.5 3.7-10.4 [facility] HospitalBwyordwCHVULOPPEG4828-42-12 10:00:00 Test Item Value Reference Range Interpretation Comments RBC (test code = RBC) 3.09 4.20-5.40 [facility] HospitalLgqixtlCGKXHURESJ3347-18-59 10:00:00 Test Item Value Reference Range Interpretation Comments Hct (test code = Hct) 28.3 36.0-48.0 [facility] HospitalWwatphpELYHMKJTAF8840-67-93 10:00:00 Test Item Value Reference Range Interpretation Comments MCH (test code = MCH) 31.4 pg 27.0-31.0 [facility] HospitalKdpjfksUFHRIRCCUK9795-29-75 10:00:00 Test Item Value Reference Range Interpretation Comments MCV (test code = MCV) 91.6 81.0-99.0 [facility] HospitalMxdomrjAURQXEBMXM8399-23-78 10:00:00 Test Item Value Reference Range Interpretation Comments MCHC (test code = MCHC) 34.3 32.0-36.0 [facility] HospitalBygxqkpQXUARJRJTE2206-32-27 10:00:00 Test Item Value Reference Range Interpretation Comments Hgb (test code = Hgb) 9.7 12.0-16.0 [facility] HospitalRvhoeeyJSNCFOVFCJ3587-75-43 10:00:00 Test Item Value Reference Range Interpretation Comments Lymphocytes (test code = Lymphocytes) 22.6 20.0-40.0 [facility] HospitalBkopfufFXCJDOLDJA6802-57-83 10:00:00 Test Item Value Reference Range Interpretation Comments Segs (test code = Segs) 66.9 45.0-75.0 [facility] HospitalPwfasicHVXOMXOJBM5805-82-27 10:00:00 Test Item Value Reference Range Interpretation Comments Monocytes (test code = Monocytes) 7.0 2.0-12.0 [facility] HospitalNxgivanEECGPVCCFZ0918-41-91 10:00:00 Test Item Value Reference Range Interpretation Comments Basophils (test code = 0.5 See_Comment [Aut omated message] The Basophils) system which ge nerated this result tra nsmitted reference range : <=1.0. The reference r katie was not used to int erpret this result as normal/abnormal . [facility] HospitalNwnbdxvAMPIVOWOJL3459-68-15 10:00:00 Test Item Value Reference Range Interpretation Comments Eosinophils (test code = 3.0 See_Comment [A utomated message] The Eosinophils) system which ge nerated this result tra nsmitted reference range : <=4.0. The reference r katie was not used to int erpret this result as normal/abnormal . [facility] HospitalQlqetmgLUPEZHBJLD7869-34-77 10:00:00 Test Item Value Reference Range Interpretation Comments Segs-Bands # (test code = Segs-Bands #) 5.7 1.5-8.1 [facility] HospitalClosvwuGFYDVWTPPX9366-57-05 10:00:00 Test Item Value Reference Range Interpretation Comments Basophils # (test code 0.0 See_Comment [Aut omated message] The = Basophils #) system which generated this result tra nsmitted reference range : <=0.2. The reference r katie was not used to int erpret this result as normal/abnormal . [facility] HospitalGjsivgqHCXGBIIRBC8159-19-78 10:00:00 Test Item Value Reference Range Interpretation Comments Eosinophils # (test code 0.3 See_Comment [A utomated message] The = Eosinophils #) system whic h generated this result tra nsmitted reference range : <=0.5. The reference r katie was not used to int erpret this result as normal/abnormal . [facility] HospitalDtlboodBGPJANIBXZ2157-89-40 10:00:00 Test Item Value Reference Range Interpretation Comments Lymphocytes # (test code = Lymphocytes 1.9 1.0-5.5 #) [facility] HospitalJmrwstrYXNDFALSBE4979-83-44 10:00:00 Test Item Value Reference Range Interpretation Comments Monocytes # (test code 0.6 See_Comment [Aut omated message] The = Monocytes #) system which generated this result tra nsmitted reference range : <=0.8. The reference r katie was not used to int erpret this result as normal/abnormal . [facility]2014-08-17 10:00:00 Test Item Value Reference Range Interpretation Comments eGFR (test code = eGFR) 69 [facility]2014-08-17 10:00:00 Test Item Value Reference Range Interpretation Comments Sodium Lvl (test code = Sodium Lvl) 137 135-145 [facility]2014-08-17 10:00:00 Test Item Value Reference Range Interpretation Comments Potassium Lvl (test code = Potassium 4.2 3.5-5.1 Lvl) [facility]2014-08-17 10:00:00 Test Item Value Reference Range Interpretation Comments Chloride Lvl (test code = Chloride Lvl) 105 95-109 [facility]2014-08-17 10:00:00 Test Item Value Reference Range Interpretation Comments BUN (test code = BUN) 9 7-22 [facility]2014-08-17 10:00:00 Test Item Value Reference Range Interpretation Comments Creatinine Lvl (test code = Creatinine 0.9 0.5-1.4 Lvl) [facility]2014-08-17 10:00:00 Test Item Value Reference Range Interpretation Comments Glucose Lvl (test code = Glucose Lvl) 144 70-99 [facility]2014-08-17 10:00:00 Test Item Value Reference Range Interpretation Comments CO2 (test code = CO2) 25 24-32 [facility]2014-08-17 10:00:00 Test Item Value Reference Range Interpretation Comments Calcium Lvl (test code = Calcium Lvl) 8.4 8.5-10.5 [facility]2014-08-17 10:00:00 Test Item Value Reference Range Interpretation Comments AGAP (test code = AGAP) 11.2 10.0-20.0 [facility]2014-08-17 10:00:00 Test Item Value Reference Range Interpretation Comments Magnesium Lvl (test code = Magnesium 1.6 1.8-2.4 Lvl) [facility] HospitalJimgggyTZXEQREGIF7510-46-40 10:00:00 Test Item Value Reference Range Interpretation Comments INR (test code = INR) 0.99 0.85-1.17 [facility] HospitalLdcgoxtBGPTIUHTDW6697-04-74 10:00:00 Test Item Value Reference Range Interpretation Comments PT (test code = PT) 13.0 s 12.0-14.7 [facility] HospitalHwpnptqPOMCVCTQJB2674-15-65 10:00:00 Test Item Value Reference Range Interpretation Comments PTT (test code = PTT) 32.2 s 22.9-35.8 [facility] HospitalMuhnoyvUJYRLNDCRR8305-02-85 10:00:00 Test Item Value Reference Range Interpretation Comments Platelet (test code = Platelet) 156 133-450 [facility] HospitalQhoebvaATZTTWGOLE3951-86-58 10:00:00 Test Item Value Reference Range Interpretation Comments RDW (test code = RDW) 18.5 11.5-14.5 [facility] HospitalLhojvraRPMWUNOVIG5014-24-85 10:00:00 Test Item Value Reference Range Interpretation Comments MPV (test code = MPV) 7.4 7.4-10.4 [facility] HospitalNgnnwcyBJTSEXZPHD9756-13-34 10:00:00 Test Item Value Reference Range Interpretation Comments WBC (test code = WBC) 8.5 3.7-10.4 [facility] HospitalOulgpwfPQNIHAKTVZ4762-31-32 10:00:00 Test Item Value Reference Range Interpretation Comments RBC (test code = RBC) 3.09 4.20-5.40 [facility] HospitalYukmwjiUWCSVKJRST1924-59-79 10:00:00 Test Item Value Reference Range Interpretation Comments Hct (test code = Hct) 28.3 36.0-48.0 [facility] HospitalDmseqfeRELSWUHXGL5586-43-23 10:00:00 Test Item Value Reference Range Interpretation Comments MCH (test code = MCH) 31.4 pg 27.0-31.0 [facility] HospitalLputljfMPICDNQNAL8085-21-57 10:00:00 Test Item Value Reference Range Interpretation Comments MCV (test code = MCV) 91.6 81.0-99.0 [facility] HospitalDkhamcpWASNDILLWG8237-66-25 10:00:00 Test Item Value Reference Range Interpretation Comments MCHC (test code = MCHC) 34.3 32.0-36.0 [facility] HospitalPuboigiQYUPSQCGQC0276-20-82 10:00:00 Test Item Value Reference Range Interpretation Comments Hgb (test code = Hgb) 9.7 12.0-16.0 [facility] HospitalDzyfgnyFMVTXYTZLF4050-86-40 10:00:00 Test Item Value Reference Range Interpretation Comments Lymphocytes (test code = Lymphocytes) 22.6 20.0-40.0 [facility] HospitalEritftkKUZJMOTQPK0360-22-28 10:00:00 Test Item Value Reference Range Interpretation Comments Segs (test code = Segs) 66.9 45.0-75.0 [facility] HospitalCemvrkuVHVSLRFDDP1516-26-02 10:00:00 Test Item Value Reference Range Interpretation Comments Monocytes (test code = Monocytes) 7.0 2.0-12.0 [facility] HospitalPlycpwfADIFSDYWCA7029-41-96 10:00:00 Test Item Value Reference Range Interpretation Comments Basophils (test code = 0.5 See_Comment [Aut omated message] The Basophils) system which ge nerated this result tra nsmitted reference range : <=1.0. The reference r katie was not used to int erpret this result as normal/abnormal . [facility] HospitalDzvffwvYXZKICIIBK5544-32-01 10:00:00 Test Item Value Reference Range Interpretation Comments Eosinophils (test code = 3.0 See_Comment [A utomated message] The Eosinophils) system which ge nerated this result tra nsmitted reference range : <=4.0. The reference r katie was not used to int erpret this result as normal/abnormal . [facility] HospitalMsvadcoHVWMPMZFTR5815-94-25 10:00:00 Test Item Value Reference Range Interpretation Comments Segs-Bands # (test code = Segs-Bands #) 5.7 1.5-8.1 [facility] HospitalUbrkfecISWMWZRAFE7706-78-12 10:00:00 Test Item Value Reference Range Interpretation Comments Basophils # (test code 0.0 See_Comment [Aut omated message] The = Basophils #) system which generated this result tra nsmitted reference range : <=0.2. The reference r katie was not used to int erpret this result as normal/abnormal . [facility] HospitalLcrkjefHAIRMERFMJ3336-83-54 10:00:00 Test Item Value Reference Range Interpretation Comments Eosinophils # (test code 0.3 See_Comment [A utomated message] The = Eosinophils #) system whic h generated this result tra nsmitted reference range : <=0.5. The reference r katie was not used to int erpret this result as normal/abnormal . [facility] HospitalFtbwrgrPQYKCKPIPU8504-80-38 10:00:00 Test Item Value Reference Range Interpretation Comments Lymphocytes # (test code = Lymphocytes 1.9 1.0-5.5 #) [facility] HospitalPkmmbrbPNIPLFCBGT3119-69-94 10:00:00 Test Item Value Reference Range Interpretation Comments Monocytes # (test code 0.6 See_Comment [Aut omated message] The = Monocytes #) system which generated this result tra nsmitted reference range : <=0.8. The reference r katie was not used to int erpret this result as normal/abnormal . [facility]2014-08-17 10:00:00 Test Item Value Reference Range Interpretation Comments eGFR (test code = eGFR) 69 [facility]2014-08-17 10:00:00 Test Item Value Reference Range Interpretation Comments Sodium Lvl (test code = Sodium Lvl) 137 135-145 [facility]2014-08-17 10:00:00 Test Item Value Reference Range Interpretation Comments Potassium Lvl (test code = Potassium 4.2 3.5-5.1 Lvl) [facility]2014-08-17 10:00:00 Test Item Value Reference Range Interpretation Comments Chloride Lvl (test code = Chloride Lvl) 105 95-109 [facility]2014-08-17 10:00:00 Test Item Value Reference Range Interpretation Comments BUN (test code = BUN) 9 7-22 [facility]2014-08-17 10:00:00 Test Item Value Reference Range Interpretation Comments Creatinine Lvl (test code = Creatinine 0.9 0.5-1.4 Lvl) [facility]2014-08-17 10:00:00 Test Item Value Reference Range Interpretation Comments Glucose Lvl (test code = Glucose Lvl) 144 70-99 [facility]2014-08-17 10:00:00 Test Item Value Reference Range Interpretation Comments CO2 (test code = CO2) 25 24-32 [facility]2014-08-17 10:00:00 Test Item Value Reference Range Interpretation Comments Calcium Lvl (test code = Calcium Lvl) 8.4 8.5-10.5 [facility]2014-08-17 10:00:00 Test Item Value Reference Range Interpretation Comments AGAP (test code = AGAP) 11.2 10.0-20.0 [facility]2014-08-17 10:00:00 Test Item Value Reference Range Interpretation Comments Magnesium Lvl (test code = Magnesium 1.6 1.8-2.4 Lvl) [facility] HospitalKnuiinkSJHLIEILHF9506-83-40 10:00:00 Test Item Value Reference Range Interpretation Comments INR (test code = INR) 0.99 0.85-1.17 [facility] HospitalVyhltyqFSEUCBBNOU2809-54-16 10:00:00 Test Item Value Reference Range Interpretation Comments PT (test code = PT) 13.0 s 12.0-14.7 [facility] HospitalDjbqjtxBRHWLSKQDE7516-11-99 10:00:00 Test Item Value Reference Range Interpretation Comments PTT (test code = PTT) 32.2 s 22.9-35.8 [facility] HospitalGbuscjbJMLMAQDNZK3380-70-68 10:00:00 Test Item Value Reference Range Interpretation Comments Platelet (test code = Platelet) 156 133-450 [facility] HospitalAkitzkxTTCXKIGGCQ1353-76-08 10:00:00 Test Item Value Reference Range Interpretation Comments RDW (test code = RDW) 18.5 11.5-14.5 [facility] HospitalVbvjqtyTDMCQASRVV2227-15-00 10:00:00 Test Item Value Reference Range Interpretation Comments MPV (test code = MPV) 7.4 7.4-10.4 [facility] HospitalFxjerphAPLUKAOAPK2161-86-73 10:00:00 Test Item Value Reference Range Interpretation Comments WBC (test code = WBC) 8.5 3.7-10.4 [facility] HospitalDfsehbnZPXBEZCZSZ8610-38-01 10:00:00 Test Item Value Reference Range Interpretation Comments RBC (test code = RBC) 3.09 4.20-5.40 [facility] HospitalGiiuthwCNQXGSIURQ8436-09-92 10:00:00 Test Item Value Reference Range Interpretation Comments Hct (test code = Hct) 28.3 36.0-48.0 [facility] HospitalLslcccsMNLPKKTNQL6249-26-20 10:00:00 Test Item Value Reference Range Interpretation Comments MCH (test code = MCH) 31.4 pg 27.0-31.0 [facility] HospitalPobuxoyTMEVMMNJKH1575-95-60 10:00:00 Test Item Value Reference Range Interpretation Comments MCV (test code = MCV) 91.6 81.0-99.0 [facility] HospitalNjqfalkENDYGVNJHU2186-55-39 10:00:00 Test Item Value Reference Range Interpretation Comments MCHC (test code = MCHC) 34.3 32.0-36.0 [facility] HospitalYmvhfgiNDBOECOJNR4749-86-79 10:00:00 Test Item Value Reference Range Interpretation Comments Hgb (test code = Hgb) 9.7 12.0-16.0 [facility] HospitalRlzryudMDWVWTOVIT9248-16-35 10:00:00 Test Item Value Reference Range Interpretation Comments Lymphocytes (test code = Lymphocytes) 22.6 20.0-40.0 [facility] HospitalByodhnfMECAVCRNFX0547-14-08 10:00:00 Test Item Value Reference Range Interpretation Comments Segs (test code = Segs) 66.9 45.0-75.0 [facility] HospitalDjamhfdIIBSOIPWLU5460-59-88 10:00:00 Test Item Value Reference Range Interpretation Comments Monocytes (test code = Monocytes) 7.0 2.0-12.0 [facility] HospitalGuhycgyZMCHSBIQKM0572-33-96 10:00:00 Test Item Value Reference Range Interpretation Comments Basophils (test code = 0.5 See_Comment [Aut omated message] The Basophils) system which ge nerated this result tra nsmitted reference range : <=1.0. The reference r katie was not used to int erpret this result as normal/abnormal . [facility] HospitalBceszylGWXFKVPYYI9822-06-72 10:00:00 Test Item Value Reference Range Interpretation Comments Eosinophils (test code = 3.0 See_Comment [A utomated message] The Eosinophils) system which ge nerated this result tra nsmitted reference range : <=4.0. The reference r katie was not used to int erpret this result as normal/abnormal . [facility] HospitalBwmjvmpXYLKTFWZVF8830-07-96 10:00:00 Test Item Value Reference Range Interpretation Comments Segs-Bands # (test code = Segs-Bands #) 5.7 1.5-8.1 [facility] HospitalKetkmngJAGMIFNHWI5824-70-52 10:00:00 Test Item Value Reference Range Interpretation Comments Basophils # (test code 0.0 See_Comment [Aut omated message] The = Basophils #) system which generated this result tra nsmitted reference range : <=0.2. The reference r katie was not used to int erpret this result as normal/abnormal . [facility] HospitalQrqmkmdDIITUKWPER0393-58-40 10:00:00 Test Item Value Reference Range Interpretation Comments Eosinophils # (test code 0.3 See_Comment [A utomated message] The = Eosinophils #) system whic h generated this result tra nsmitted reference range : <=0.5. The reference r katie was not used to int erpret this result as normal/abnormal . [facility] HospitalDxsuaqpUXMYLMEVHX0308-08-06 10:00:00 Test Item Value Reference Range Interpretation Comments Lymphocytes # (test code = Lymphocytes 1.9 1.0-5.5 #) [facility] HospitalTgtmoxiMMYKNAUXYM9050-03-78 10:00:00 Test Item Value Reference Range Interpretation Comments Monocytes # (test code 0.6 See_Comment [Aut omated message] The = Monocytes #) system which generated this result tra nsmitted reference range : <=0.8. The reference r katie was not used to int erpret this result as normal/abnormal . [facility]2014-08-17 10:00:00 Test Item Value Reference Range Interpretation Comments eGFR (test code = eGFR) 69 [facility]2014-08-17 10:00:00 Test Item Value Reference Range Interpretation Comments Sodium Lvl (test code = Sodium Lvl) 137 135-145 [facility]2014-08-17 10:00:00 Test Item Value Reference Range Interpretation Comments Potassium Lvl (test code = Potassium 4.2 3.5-5.1 Lvl) [facility]2014-08-17 10:00:00 Test Item Value Reference Range Interpretation Comments Chloride Lvl (test code = Chloride Lvl) 105 95-109 [facility]2014-08-17 10:00:00 Test Item Value Reference Range Interpretation Comments BUN (test code = BUN) 9 7-22 [facility]2014-08-17 10:00:00 Test Item Value Reference Range Interpretation Comments Creatinine Lvl (test code = Creatinine 0.9 0.5-1.4 Lvl) [facility]2014-08-17 10:00:00 Test Item Value Reference Range Interpretation Comments Glucose Lvl (test code = Glucose Lvl) 144 70-99 [facility]2014-08-17 10:00:00 Test Item Value Reference Range Interpretation Comments CO2 (test code = CO2) 25 24-32 [facility]2014-08-17 10:00:00 Test Item Value Reference Range Interpretation Comments Calcium Lvl (test code = Calcium Lvl) 8.4 8.5-10.5 [facility]2014-08-17 10:00:00 Test Item Value Reference Range Interpretation Comments AGAP (test code = AGAP) 11.2 10.0-20.0 [facility]2014-08-17 10:00:00 Test Item Value Reference Range Interpretation Comments Magnesium Lvl (test code = Magnesium 1.6 1.8-2.4 Lvl) [facility] HospitalSjvcgjiTAQDHCKMCZ4485-90-80 10:00:00 Test Item Value Reference Range Interpretation Comments INR (test code = INR) 0.99 0.85-1.17 [facility] HospitalBtznjpcTOIFVRQOCJ7265-84-09 10:00:00 Test Item Value Reference Range Interpretation Comments PT (test code = PT) 13.0 s 12.0-14.7 [facility] HospitalCzpeyfyQRZXNHHJWS9792-09-67 10:00:00 Test Item Value Reference Range Interpretation Comments PTT (test code = PTT) 32.2 s 22.9-35.8 [facility] HospitalTnfsoxiQAWXQTTVSH1095-87-33 10:00:00 Test Item Value Reference Range Interpretation Comments Platelet (test code = Platelet) 156 133-450 [place] 464974-08-17 10:00:00 Test Item Value Reference Range Interpretation Comments RDW (test code = RDW) 18.5 11.5-14.5 [facility] HospitalTrswzyoTZSNBWZRJQ5469-80-99 10:00:00 Test Item Value Reference Range Interpretation Comments MPV (test code = MPV) 7.4 7.4-10.4 [facility] HospitalBpxoaotZALSKFSETJ7795-25-28 10:00:00 Test Item Value Reference Range Interpretation Comments WBC (test code = WBC) 8.5 3.7-10.4 [facility] HospitalWmzcqcvGBQHDQKFXW7200-58-93 10:00:00 Test Item Value Reference Range Interpretation Comments RBC (test code = RBC) 3.09 4.20-5.40 [facility] HospitalBaezqgtCSTAFYJHNI0079-59-97 10:00:00 Test Item Value Reference Range Interpretation Comments Hct (test code = Hct) 28.3 36.0-48.0 [facility] HospitalMwjbysmRTBGTUIFST5792-40-63 10:00:00 Test Item Value Reference Range Interpretation Comments MCH (test code = MCH) 31.4 pg 27.0-31.0 [facility] HospitalVesjvzxSDSIEFVUMN3232-53-86 10:00:00 Test Item Value Reference Range Interpretation Comments MCV (test code = MCV) 91.6 81.0-99.0 [facility] HospitalQabuignGWOSHRMXOB8254-54-75 10:00:00 Test Item Value Reference Range Interpretation Comments MCHC (test code = MCHC) 34.3 32.0-36.0 [facility] HospitalYhpfloxFDRPPYVSMI8056-75-97 10:00:00 Test Item Value Reference Range Interpretation Comments Hgb (test code = Hgb) 9.7 12.0-16.0 [facility] HospitalUbspelgDJREBDRVCI7482-85-48 10:00:00 Test Item Value Reference Range Interpretation Comments Lymphocytes (test code = Lymphocytes) 22.6 20.0-40.0 [facility] HospitalMxrsxmwFRSMZRJBBD8692-76-85 10:00:00 Test Item Value Reference Range Interpretation Comments Segs (test code = Segs) 66.9 45.0-75.0 [facility] HospitalHoqvkcgECQXKZPDDA7248-88-90 10:00:00 Test Item Value Reference Range Interpretation Comments Monocytes (test code = Monocytes) 7.0 2.0-12.0 [facility] HospitalQzmbdziUUSWKEPRKE5679-14-48 10:00:00 Test Item Value Reference Range Interpretation Comments Basophils (test code = 0.5 See_Comment [Aut omated message] The Basophils) system which ge nerated this result tra nsmitted reference range : <=1.0. The reference r katie was not used to int erpret this result as normal/abnormal . [facility] HospitalZhewqscXPSMKWKZJW8149-38-31 10:00:00 Test Item Value Reference Range Interpretation Comments Eosinophils (test code = 3.0 See_Comment [A utomated message] The Eosinophils) system which ge nerated this result tra nsmitted reference range : <=4.0. The reference r katie was not used to int erpret this result as normal/abnormal . [facility] HospitalOoxecicQBQIKIWDOS5031-92-36 10:00:00 Test Item Value Reference Range Interpretation Comments Segs-Bands # (test code = Segs-Bands #) 5.7 1.5-8.1 [facility] HospitalViiwphaDBOHETIWCF9254-54-67 10:00:00 Test Item Value Reference Range Interpretation Comments Basophils # (test code 0.0 See_Comment [Aut omated message] The = Basophils #) system which generated this result tra nsmitted reference range : <=0.2. The reference r katie was not used to int erpret this result as normal/abnormal . [facility] HospitalHdlteeuBQTBLSBJWV8198-63-60 10:00:00 Test Item Value Reference Range Interpretation Comments Eosinophils # (test code 0.3 See_Comment [A utomated message] The = Eosinophils #) system [facility] h generated this result tra nsmitted reference range : <=0.5. The reference r katie was not used to int erpret this result as normal/abnormal . [facility] HospitalZxnvwhwNJPZIZJKUR3167-81-50 10:00:00 Test Item Value Reference Range Interpretation Comments Lymphocytes # (test code = Lymphocytes 1.9 1.0-5.5 #) [facility] HospitalMsfkansQJXGUBHGKN0191-97-43 10:00:00 Test Item Value Reference Range Interpretation Comments Monocytes # (test code 0.6 See_Comment [Aut omated message] The = Monocytes #) system which generated this result tra nsmitted reference range : <=0.8. The reference r katie was not used to int erpret this result as normal/abnormal . [facility]2014-08-17 10:00:00 Test Item Value Reference Range Interpretation Comments eGFR (test code = eGFR) 69 [facility]2014-08-17 10:00:00 Test Item Value Reference Range Interpretation Comments Sodium Lvl (test code = Sodium Lvl) 137 135-145 [facility]2014-08-17 10:00:00 Test Item Value Reference Range Interpretation Comments Potassium Lvl (test code = Potassium 4.2 3.5-5.1 Lvl) [facility]2014-08-17 10:00:00 Test Item Value Reference Range Interpretation Comments Chloride Lvl (test code = Chloride Lvl) 105 95-109 [facility]2014-08-17 10:00:00 Test Item Value Reference Range Interpretation Comments BUN (test code = BUN) 9 7-22 [facility]2014-08-17 10:00:00 Test Item Value Reference Range Interpretation Comments Creatinine Lvl (test code = Creatinine 0.9 0.5-1.4 Lvl) [facility]2014-08-17 10:00:00 Test Item Value Reference Range Interpretation Comments Glucose Lvl (test code = Glucose Lvl) 144 70-99 [facility]2014-08-17 10:00:00 Test Item Value Reference Range Interpretation Comments CO2 (test code = CO2) 25 24-32 [facility]2014-08-17 10:00:00 Test Item Value Reference Range Interpretation Comments Calcium Lvl (test code = Calcium Lvl) 8.4 8.5-10.5 [facility]2014-08-17 10:00:00 Test Item Value Reference Range Interpretation Comments AGAP (test code = AGAP) 11.2 10.0-20.0 [facility]2014-08-17 10:00:00 Test Item Value Reference Range Interpretation Comments Magnesium Lvl (test code = Magnesium 1.6 1.8-2.4 Lvl) [facility] HospitalHtlsjceAYVGKYWDUN3214-31-39 10:00:00 Test Item Value Reference Range Interpretation Comments INR (test code = INR) 0.99 0.85-1.17 [facility] HospitalYvjskarKWLSETZVAD0552-91-73 10:00:00 Test Item Value Reference Range Interpretation Comments PT (test code = PT) 13.0 s 12.0-14.7 [facility] HospitalDkebswhRJKVRCOJRC3022-68-08 10:00:00 Test Item Value Reference Range Interpretation Comments PTT (test code = PTT) 32.2 s 22.9-35.8 [facility] HospitalTstjxjjAAJOJUIJAK9984-09-82 10:00:00 Test Item Value Reference Range Interpretation Comments Platelet (test code = Platelet) 156 133-450 [facility] HospitalNyzisrgXJEXNQOCIJ1757-05-46 10:00:00 Test Item Value Reference Range Interpretation Comments RDW (test code = RDW) 18.5 11.5-14.5 [facility] HospitalPnnyqwaRJUXRYXNUT1668-61-48 10:00:00 Test Item Value Reference Range Interpretation Comments MPV (test code = MPV) 7.4 7.4-10.4 [facility] HospitalAiodshzZWUJJAQWHT1473-09-23 10:00:00 Test Item Value Reference Range Interpretation Comments WBC (test code = WBC) 8.5 3.7-10.4 [facility] HospitalXybtidbONAEJCQWXY3521-53-87 10:00:00 Test Item Value Reference Range Interpretation Comments RBC (test code = RBC) 3.09 4.20-5.40 [facility] HospitalCpnzealRDFCNTEJOU0245-56-75 10:00:00 Test Item Value Reference Range Interpretation Comments Hct (test code = Hct) 28.3 36.0-48.0 [facility] HospitalZktelxeJPJOFNBLGK0178-71-79 10:00:00 Test Item Value Reference Range Interpretation Comments MCH (test code = MCH) 31.4 pg 27.0-31.0 [facility] HospitalArlxbykPXFUJLWLDU7932-16-71 10:00:00 Test Item Value Reference Range Interpretation Comments MCV (test code = MCV) 91.6 81.0-99.0 [facility] HospitalZucwxndCCECINAQZN8321-20-19 10:00:00 Test Item Value Reference Range Interpretation Comments MCHC (test code = MCHC) 34.3 32.0-36.0 [facility] HospitalYmbkdlhJGVDOFVCRM8993-03-41 10:00:00 Test Item Value Reference Range Interpretation Comments Hgb (test code = Hgb) 9.7 12.0-16.0 [facility] HospitalDhbddwkFFAWGSLDSR7390-96-86 10:00:00 Test Item Value Reference Range Interpretation Comments Lymphocytes (test code = Lymphocytes) 22.6 20.0-40.0 [facility] HospitalUorpqkoDKEUSRRZVL7965-10-43 10:00:00 Test Item Value Reference Range Interpretation Comments Segs (test code = Segs) 66.9 45.0-75.0 [facility] HospitalHiqwblwMILPPTATOK2403-12-31 10:00:00 Test Item Value Reference Range Interpretation Comments Monocytes (test code = Monocytes) 7.0 2.0-12.0 [facility] HospitalQmdjkevWCWHOGVOCK4297-01-12 10:00:00 Test Item Value Reference Range Interpretation Comments Basophils (test code = 0.5 See_Comment [Aut omated message] The Basophils) system which ge nerated this result tra nsmitted reference range : <=1.0. The reference r katie was not used to int erpret this result as normal/abnormal . [facility] HospitalTwgrkdbQOOEDVMWJJ0570-83-78 10:00:00 Test Item Value Reference Range Interpretation Comments Eosinophils (test code = 3.0 See_Comment [A utomated message] The Eosinophils) system which ge nerated this result tra nsmitted reference range : <=4.0. The reference r katie was not used to int erpret this result as normal/abnormal . [facility] HospitalJyklzebYVNISOAUWE1120-82-49 10:00:00 Test Item Value Reference Range Interpretation Comments Segs-Bands # (test code = Segs-Bands #) 5.7 1.5-8.1 [facility] HospitalMdnsrpeZVXUMAUVNR3104-18-39 10:00:00 Test Item Value Reference Range Interpretation Comments Basophils # (test code 0.0 See_Comment [Aut omated message] The = Basophils #) system which generated this result tra nsmitted reference range : <=0.2. The reference r katie was not used to int erpret this result as normal/abnormal . [facility] HospitalQlktvksDOUXOVMGTC4653-80-41 10:00:00 Test Item Value Reference Range Interpretation Comments Eosinophils # (test code 0.3 See_Comment [A utomated message] The = Eosinophils #) system whic h generated this result tra nsmitted reference range : <=0.5. The reference r katie was not used to int erpret this result as normal/abnormal . [facility] HospitalGsyxoywNLWNIAORET8493-35-71 10:00:00 Test Item Value Reference Range Interpretation Comments Lymphocytes # (test code = Lymphocytes 1.9 1.0-5.5 #) [facility] HospitalYuqhkygNAKDPGTDWT0310-79-11 10:00:00 Test Item Value Reference Range Interpretation Comments Monocytes # (test code 0.6 See_Comment [Aut omated message] The = Monocytes #) system which generated this result tra nsmitted reference range : <=0.8. The reference r katie was not used to int erpret this result as normal/abnormal . [facility] HospitalGzlkbkwPCDRHXEJEV8527-46-52 15:10:33 Test Item Value Reference Range Interpretation Comments Pos CO Value (test code = Pos CO 0.443 1 Value) [facility] HospitalXkmwxolEICHMVXSQZ0374-90-64 15:10:33 Test Item Value Reference Range Interpretation Comments Pat Od Value (test code = Pat Od 0.221 1 Value) [facility] HospitalXwyxqgrMNKHESOSIA1047-24-11 15:10:33 Test Item Value Reference Range Interpretation Comments Heparin Ab(NERI) Negative (02/09/14 10:10 (test code = Heparin AM) Ab(NERI)) [facility] HospitalSrfcjeoWWAUGXZKPR2814-08-88 15:10:33 Test Item Value Reference Range Interpretation Comments Pos CO Value (test code = Pos CO 0.443 1 Value) [facility] HospitalNiexpraUFJPSLYIVU2235-23-73 15:10:33 Test Item Value Reference Range Interpretation Comments Pat Od Value (test code = Pat Od 0.221 1 Value) [facility] HospitalJauoznnHFTUFNWUXX8064-14-54 15:10:33 Test Item Value Reference Range Interpretation Comments Heparin Ab(NERI) Negative (02/09/14 10:10 (test code = Heparin AM) Ab(NERI)) [facility] HospitalVjghsjlNBSPUHSIOB4931-53-87 15:10:33 Test Item Value Reference Range Interpretation Comments Pos CO Value (test code = Pos CO 0.443 1 Value) [facility] HospitalHgtmoguPCAPUSRMQQ5168-17-55 15:10:33 Test Item Value Reference Range Interpretation Comments Pat Od Value (test code = Pat Od 0.221 1 Value) [facility] HospitalMjvfryaSLABGJBYML1472-52-70 15:10:33 Test Item Value Reference Range Interpretation Comments Heparin Ab(NERI) Negative (02/09/14 10:10 (test code = Heparin AM) Ab(NERI)) [facility] HospitalFrugfhuACEDCVBBZT0750-90-92 15:10:33 Test Item Value Reference Range Interpretation Comments Pos CO Value (test code = Pos CO 0.443 1 Value) [facility] HospitalSdswazzFOKFLKVWBH3401-77-02 15:10:33 Test Item Value Reference Range Interpretation Comments Pat Od Value (test code = Pat Od 0.221 1 Value) [facility] HospitalNudilghYHSZFWZGPR6067-38-46 15:10:33 Test Item Value Reference Range Interpretation Comments Heparin Ab(NERI) Negative (02/09/14 10:10 (test code = Heparin AM) Ab(NERI)) [facility] HospitalXjhtwqrPETTXNEGST2462-18-68 15:10:33 Test Item Value Reference Range Interpretation Comments Pos CO Value (test code = Pos CO 0.443 1 Value) [facility] HospitalJtydhyvRVMSXQCUNF0045-13-71 15:10:33 Test Item Value Reference Range Interpretation Comments Pat Od Value (test code = Pat Od 0.221 1 Value) [facility] HospitalOxmpbblVLLXZORJIS5360-86-76 15:10:33 Test Item Value Reference Range Interpretation Comments Heparin Ab(NERI) Negative (02/09/14 10:10 (test code = Heparin AM) Ab(NERI)) [facility] HospitalLpbtqoiYIBFUSHAOC9690-50-78 15:10:33 Test Item Value Reference Range Interpretation Comments Pos CO Value (test code = Pos CO 0.443 1 Value) [facility] HospitalJcztcsbDCYGAQHWTW5571-01-30 15:10:33 Test Item Value Reference Range Interpretation Comments Pat Od Value (test code = Pat Od 0.221 1 Value) [facility] HospitalVfytobkTTEVLAIPDM9274-79-98 15:10:33 Test Item Value Reference Range Interpretation Comments Heparin Ab(NERI) Negative (02/09/14 10:10 (test code = Heparin AM) Ab(NERI)) [facility]2014-08-15 23:40:50 Test Item Value Reference Range Interpretation Comments % Satur Fe (test code = % Satur Fe) 26 12-[address] [facility]2014-08-15 23:40:50 Test Item Value Reference Range Interpretation Comments UIBC (test code = UIBC) 140 110-[address] [facility]2014-08-15 23:40:50 Test Item Value Reference Range Interpretation Comments TIBC (test code = TIBC) 188 228-[address] [facility]2014-08-15 23:40:50 Test Item Value Reference Range Interpretation Comments Iron (test code = Iron) 48 30-[address] [facility]2014-08-15 23:40:50 Test Item Value Reference Range Interpretation Comments % Satur Fe (test code = % Satur Fe) [facility] PBGAE5035-14-45 23:40:50 Test Item Value Reference Range Interpretation Comments UIBC (test code = UIBC) 140 110-370 [facility] QULRI8939-97-70 23:40:50 Test Item Value Reference Range Interpretation Comments TIBC (test code = TIBC) 188 228-428 [facility] OWQOX4352-95-18 23:40:50 Test Item Value Reference Range Interpretation Comments Iron (test code = Iron) 48 30-160 [facility] NIOVO1965-02-27 23:40:50 Test Item Value Reference Range Interpretation Comments % Satur Fe (test code = % Satur Fe) [facility] JJWMU8670-55-44 23:40:50 Test Item Value Reference Range Interpretation Comments UIBC (test code = UIBC) 140 110-370 [facility] [id number] 23:40:50 Test Item Value Reference Range Interpretation Comments TIBC (test code = TIBC) 188 228-428 [facility] RRBRI0950-53-22 23:40:50 Test Item Value Reference Range Interpretation Comments Iron (test code = Iron) 48 -160 [facility] TMFCJ4644-09-52 23:40:50 Test Item Value Reference Range Interpretation Comments % Satur Fe (test code = % Satur Fe) [facility] HPOVZ9092-33-00 23:40:50 Test Item Value Reference Range Interpretation Comments UIBC (test code = UIBC) 140 110-370 [facility] [id number] 23:40:50 Test Item Value Reference Range Interpretation Comments TIBC (test code = TIBC) 188 228-428 [facility] AFNXD1092-05-73 23:40:50 Test Item Value Reference Range Interpretation Comments Iron (test code = Iron) 48 30-160 [facility] KTLYG0855-99-08 23:40:50 Test Item Value Reference Range Interpretation Comments % Satur Fe (test code = % Satur Fe) [facility] ECUKD4464-67-66 23:40:50 Test Item Value Reference Range Interpretation Comments UIBC (test code = UIBC) 140 110-370 [facility] OISLB0758-69-08 23:40:50 Test Item Value Reference Range Interpretation Comments TIBC (test code = TIBC) 188 228-[address] [facility]2014-08-15 23:40:50 Test Item Value Reference Range Interpretation Comments Iron (test code = Iron) 48 30-[address] [facility]2014-08-15 23:40:50 Test Item Value Reference Range Interpretation Comments % Satur Fe (test code = % Satur Fe) 26 12-[address] [facility]2014-08-15 23:40:50 Test Item Value Reference Range Interpretation Comments UIBC (test code = UIBC) 140 110-[address] [facility]2014-08-15 23:40:50 Test Item Value Reference Range Interpretation Comments TIBC (test code = TIBC) 188 228-[address] [facility]2014-08-15 23:40:50 Test Item Value Reference Range Interpretation Comments Iron (test code = Iron) 48 30-160 [facility] HospitalObmaqpdFAAQZOEXZW8700-43-07 10:00:00 Test Item Value Reference Range Interpretation Comments Basophils # (test code 0.0 See_Comment [Aut omated message] The = Basophils #) system which generated this result tra nsmitted reference range : <=0.2. The reference r katie was not used to int erpret this result as normal/abnormal . [facility] HospitalHztxmaoSSSZDCEUNJ8199-25-31 10:00:00 Test Item Value Reference Range Interpretation Comments Segs (test code = Segs) 63.5 45.0-75.0 [facility] HospitalYhotatwFQXXDBUBGM9007-87-39 10:00:00 Test Item Value Reference Range Interpretation Comments Monocytes (test code = Monocytes) 8.5 2.0-12.0 [facility] HospitalMwljlhlIZPFOWTLCX5322-47-79 10:00:00 Test Item Value Reference Range Interpretation Comments Lymphocytes (test code = Lymphocytes) 25.9 20.0-40.0 [facility] HospitalOeofxyyWWRKEDHHWO0861-51-92 10:00:00 Test Item Value Reference Range Interpretation Comments Segs-Bands # (test code = Segs-Bands #) 5.3 1.5-8.1 [facility] HospitalWwgqgzfSPPGBSJPFL2718-08-36 10:00:00 Test Item Value Reference Range Interpretation Comments Basophils (test code = 0.3 See_Comment [Aut omated message] The Basophils) system which ge nerated this result tra nsmitted reference range : <=1.0. The reference r katie was not used to int erpret this result as normal/abnormal . [facility]RbrvzujOXDNUXJYYA9171-70-41 10:00:00 Test Item Value Reference Range Interpretation Comments Eosinophils (test code = 1.8 See_Comment [A utomated message] The Eosinophils) system which ge nerated this result tra nsmitted reference range : <=4.0. The reference r katie was not used to int erpret this result as normal/abnormal . [facility]PvadygcOLJDNM2785-15-73 10:00:00 Test Item Value Reference Range Interpretation Comments CHD Risk (test code = CHD Risk) 3.00 3.90-5.80 [facility] HospitalMgnomrkWGWNXV0817-91-21 10:00:00 Test Item Value Reference Range Interpretation Comments VLDL (test code = VLDL) 24 [facility] HospitalUhexxkmCYEKHO0309-37-30 10:00:00 Test Item Value Reference Range Interpretation Comments LDL (Calculated) (test code = LDL 28 (Calculated)) [facility] HospitalQwbxmyeXGFPWD2386-03-08 10:00:00 Test Item Value Reference Range Interpretation Comments HDL (test code = HDL) 26 [facility] HospitalRtxdvvuZNPGBL9378-96-33 10:00:00 Test Item Value Reference Range Interpretation Comments Trig (test code = Trig) 122 [facility] HospitalVrkyjuvNRYGRV0354-97-09 10:00:00 Test Item Value Reference Range Interpretation Comments Chol (test code = Chol) 78 [facility] HospitalannTHYROID IBTDT5630-82-92 10:00:00 Test Item Value Reference Range Interpretation Comments T4 (test code = T4) 7.9 4.7-13.3 [facility] HospitalannTHYROID [id number] 10:00:00 Test Item Value Reference Range Interpretation Comments T3 Uptake (test code = T3 Uptake) 40 31-39 [facility] HospitalannTHYROID [id number] 10:00:00 Test Item Value Reference Range Interpretation Comments TSH (test code = TSH) 3.360 0.360-3.740 [facility] HospitalannTHYROID UHHHJ0096-27-11 10:00:00 Test Item Value Reference Range Interpretation Comments FTI (test code = FTI) 3.2 [facility]annCHE[facility] LBODK9124-29-32 10:00:00 Test Item Value Reference Range Interpretation Comments Phosphorus (test code = Phosphorus) 2.5 2.5-4.5 [facility]CHE[facility] [id number] 10:00:00 Test Item Value Reference Range Interpretation Comments Magnesium Lvl (test code = Magnesium 1.9 1.8-2.4 Lvl) [facility]WgdoegqEICTHEREKOIK3635-46-82 10:00:00 Test Item Value Reference Range Interpretation Comments AGAP (test code = AGAP) 9.9 10.0-20.0 [facility] HospitalNwpklndBMOPSIIBPDDT8310-53-43 10:00:00 Test Item Value Reference Range Interpretation Comments eGFR (test code = eGFR) 61 [facility] HospitalZeuzlxkJVYTMBMBQSVT2296-09-06 10:00:00 Test Item Value Reference Range Interpretation Comments BUN (test code = BUN) 9 7-22 [facility]JsffmkeVTELXYCJYKHU4392-43-27 10:00:00 Test Item Value Reference Range Interpretation Comments Glucose Lvl (test code = Glucose Lvl) 102 70-99 [facility] HospitalGaewxqhZACHHVYQBCOM3039-15-00 10:00:00 Test Item Value Reference Range Interpretation Comments Potassium Lvl (test code = Potassium 3.9 3.5-5.1 Lvl) [facility] HospitalDiomyuiSZVRPJJWAVVL7133-23-20 10:00:00 Test Item Value Reference Range Interpretation Comments Creatinine Lvl (test code = Creatinine 1.0 0.5-1.4 Lvl) [facility] HospitalDgutbhxNMKNENPCTMAG7791-57-91 10:00:00 Test Item Value Reference Range Interpretation Comments Sodium Lvl (test code = Sodium Lvl) 141 135-145 [facility] HospitalQoeqlwcGVOPEWSAFRCS2932-19-82 10:00:00 Test Item Value Reference Range Interpretation Comments Calcium Lvl (test code = Calcium Lvl) 8.1 8.5-10.5 [facility] HospitalZzyltjiPAOSAEDXHROS9150-01-15 10:00:00 Test Item Value Reference Range Interpretation Comments CO2 (test code = CO2) 26 24-32 [facility] HospitalFkdjnprCSMRRJMZHSHQ2243-70-47 10:00:00 Test Item Value Reference Range Interpretation Comments Chloride Lvl (test code = Chloride Lvl) 109 95-109 [facility]SAJPJURTJU3562-52-40 10:00:00 Test Item Value Reference Range Interpretation Comments FSH (test code = FSH) 33.9 [facility] HospitalYcobjqhUQEEWQDSXP8952-84-34 10:00:00 Test Item Value Reference Range Interpretation Comments MPV (test code = MPV) 6.9 7.4-10.4 [facility] HospitalUkvhmbmCBOCMOYCPX4252-67-22 10:00:00 Test Item Value Reference Range Interpretation Comments Hct (test code = Hct) 28.4 36.0-48.0 [facility] HospitalQedhockZLXVEYPXFA4194-03-14 10:00:00 Test Item Value Reference Range Interpretation Comments Hgb (test code = Hgb) 9.8 12.0-16.0 [facility] HospitalWqookcsASDRJCKLEC7756-43-45 10:00:00 Test Item Value Reference Range Interpretation Comments RBC (test code = RBC) 3.15 4.20-5.40 [facility] HospitalYmeshfjYKGZSNFOHA9346-07-18 10:00:00 Test Item Value Reference Range Interpretation Comments WBC (test code = WBC) 8.4 3.7-10.4 [facility] HospitalMnkpvwuHZATIDOOTW3272-59-56 10:00:00 Test Item Value Reference Range Interpretation Comments Platelet (test code = Platelet) 118 133-450 [facility] HospitalAwolulbFVULOYKQNT1128-53-01 10:00:00 Test Item Value Reference Range Interpretation Comments RDW (test code = RDW) 19.9 11.5-14.5 [facility] HospitalNwfhdmdFNLJJALIVJ7251-00-32 10:00:00 Test Item Value Reference Range Interpretation Comments MCHC (test code = MCHC) 34.6 32.0-36.0 [facility] HospitalTtcxkpaOVPBOBLFGV0095-71-69 10:00:00 Test Item Value Reference Range Interpretation Comments MCH (test code = MCH) 31.2 pg 27.0-31.0 [facility] HospitalMlqjlhrFXEZQXOMAR7400-13-29 10:00:00 Test Item Value Reference Range Interpretation Comments MCV (test code = MCV) 90.2 81.0-99.0 [facility] HospitalOolwfdmEFEACAJMYC5665-68-04 10:00:00 Test Item Value Reference Range Interpretation Comments Monocytes # (test code 0.7 See_Comment [Aut omated message] The = Monocytes #) system which generated this result tra nsmitted reference range : <=0.8. The reference r katie was not used to int erpret this result as normal/abnormal . [facility] HospitalDdnlsmkMGRBOTEXSP7791-10-75 10:00:00 Test Item Value Reference Range Interpretation Comments Lymphocytes # (test code = Lymphocytes 2.2 1.0-5.5 #) [facility] HospitalOrpmdfgSTDNOXXRXW3747-72-17 10:00:00 Test Item Value Reference Range Interpretation Comments Eosinophils # (test code 0.1 See_Comment [A utomated message] The = Eosinophils #) system whic h generated this result tra nsmitted reference range : <=0.5. The reference r katie was not used to int erpret this result as normal/abnormal . [facility] HospitalVwmxjblEMSUCVMIXB2813-94-01 10:00:00 Test Item Value Reference Range Interpretation Comments Basophils # (test code 0.0 See_Comment [Aut omated message] The = Basophils #) system which generated this result tra nsmitted reference range : <=0.2. The reference r katie was not used to int erpret this result as normal/abnormal . [facility] HospitalTejyokqMXRIUFAZXG6005-49-30 10:00:00 Test Item Value Reference Range Interpretation Comments Segs (test code = Segs) 63.5 45.0-75.0 [facility] HospitalRanvbucWLDNHFGXNR9769-25-42 10:00:00 Test Item Value Reference Range Interpretation Comments Monocytes (test code = Monocytes) 8.5 2.0-12.0 [facility] HospitalMbcjvfgCGRFTCSILL5215-78-34 10:00:00 Test Item Value Reference Range Interpretation Comments Lymphocytes (test code = Lymphocytes) 25.9 20.0-40.0 [facility] HospitalIhnhsxyNREPKASTQJ4888-19-47 10:00:00 Test Item Value Reference Range Interpretation Comments Segs-Bands # (test code = Segs-Bands #) 5.3 1.5-8.1 [facility] HospitalYpqwkzwHRLTTYQGQQ3009-08-28 10:00:00 Test Item Value Reference Range Interpretation Comments Basophils (test code = 0.3 See_Comment [Aut omated message] The Basophils) system which ge nerated this result tra nsmitted reference range : <=1.0. The reference r katie was not used to int erpret this result as normal/abnormal . [facility]ZvhxietWASODKCSGA0213-47-04 10:00:00 Test Item Value Reference Range Interpretation Comments Eosinophils (test code = 1.8 See_Comment [A utomated message] The Eosinophils) system which ge nerated this result tra nsmitted reference range : <=4.0. The reference r katie was not used to int erpret this result as normal/abnormal . [facility]GpljqedCUQBRM8844-08-74 10:00:00 Test Item Value Reference Range Interpretation Comments CHD Risk (test code = CHD Risk) 3.00 3.90-5.80 [facility] HospitalQylrudnMZPCHM2108-24-84 10:00:00 Test Item Value Reference Range Interpretation Comments VLDL (test code = VLDL) 24 [facility] HospitalJbhrdmzYAREXH9770-32-79 10:00:00 Test Item Value Reference Range Interpretation Comments LDL (Calculated) (test code = LDL 28 (Calculated)) [facility] HospitalWbrcqbeKQXMAQ5531-30-96 10:00:00 Test Item Value Reference Range Interpretation Comments HDL (test code = HDL) 26 [facility] HospitalOxofomkCMHCKR3183-07-91 10:00:00 Test Item Value Reference Range Interpretation Comments Trig (test code = Trig) 122 [facility] HospitalGjhmzdoHTIBRH1125-33-40 10:00:00 Test Item Value Reference Range Interpretation Comments Chol (test code = Chol) 78 [facility] HospitalannTHYROID YPDHB1159-86-10 10:00:00 Test Item Value Reference Range Interpretation Comments T4 (test code = T4) 7.9 4.7-13.3 [facility] HermannTHYROID CGVGE1904-28-61 10:00:00 Test Item Value Reference Range Interpretation Comments T3 Uptake (test code = T3 Uptake) 40 31-39 [facility] HermannTHYROID [id number] 10:00:00 Test Item Value Reference Range Interpretation Comments TSH (test code = TSH) 3.360 0.360-3.740 [facility] HospitalannTHYROID MHOGY9968-73-66 10:00:00 Test Item Value Reference Range Interpretation Comments FTI (test code = FTI) 3.2 [facility] HermannCHEM KAPRF3293-19-92 10:00:00 Test Item Value Reference Range Interpretation Comments Phosphorus (test code = Phosphorus) 2.5 2.5-4.5 [facility] VPDLN2414-27-79 10:00:00 Test Item Value Reference Range Interpretation Comments Magnesium Lvl (test code = Magnesium 1.9 1.8-2.4 Lvl) [facility] HospitalXdqufmxNVIMNQSBIDXT8866-71-00 10:00:00 Test Item Value Reference Range Interpretation Comments AGAP (test code = AGAP) 9.9 10.0-20.0 [facility]XwkbylkRXMVTATLKTSZ9010-64-58 10:00:00 Test Item Value Reference Range Interpretation Comments eGFR (test code = eGFR) 61 [facility] HospitalXdptnsdYCAYHZHMYSTE0175-82-84 10:00:00 Test Item Value Reference Range Interpretation Comments BUN (test code = BUN) 9 7-22 [facility] HospitalJdavrpiKXYROJUJZYYI4169-33-97 10:00:00 Test Item Value Reference Range Interpretation Comments Glucose Lvl (test code = Glucose Lvl) 102 70-99 [facility] HospitalAziwzzuHZTYWDTONRJM2558-82-95 10:00:00 Test Item Value Reference Range Interpretation Comments Potassium Lvl (test code = Potassium 3.9 3.5-5.1 Lvl) [facility] HospitalFrmhfmgWIWTSZKXYTLH2451-96-58 10:00:00 Test Item Value Reference Range Interpretation Comments Creatinine Lvl (test code = Creatinine 1.0 0.5-1.4 Lvl) [facility] HospitalXhatlfeLYQYGXEFBIEL3863-24-47 10:00:00 Test Item Value Reference Range Interpretation Comments Sodium Lvl (test code = Sodium Lvl) 141 135-145 [facility] HospitalNwygtebIUFOQNWLPPQR2837-58-33 10:00:00 Test Item Value Reference Range Interpretation Comments Calcium Lvl (test code = Calcium Lvl) 8.1 8.5-10.5 [facility] HospitalYsjnhkpKMOFPIXVOATT2357-57-25 10:00:00 Test Item Value Reference Range Interpretation Comments CO2 (test code = CO2) 26 24-32 [facility] HospitalAcwxrycSTBLOUMWALEU1179-76-76 10:00:00 Test Item Value Reference Range Interpretation Comments Chloride Lvl (test code = Chloride Lvl) 109 95-109 [facility]enqmtrDTUMGIHWQAPSP1109-94-97 10:00:00 Test Item Value Reference Range Interpretation Comments FSH (test code = FSH) 33.9 [facility] HospitalBsymkleEQEUOSALJO1816-30-95 10:00:00 Test Item Value Reference Range Interpretation Comments MPV (test code = MPV) 6.9 7.4-10.4 [facility] HospitalVwybyxsKYHBVDJAHR3139-72-16 10:00:00 Test Item Value Reference Range Interpretation Comments Hct (test code = Hct) 28.4 36.0-48.0 [facility] HospitalQybnuwuYNPLVHVRLD2188-24-28 10:00:00 Test Item Value Reference Range Interpretation Comments Hgb (test code = Hgb) 9.8 12.0-16.0 [facility] HospitalHzdyljaJRARWEHMUR9729-27-26 10:00:00 Test Item Value Reference Range Interpretation Comments RBC (test code = RBC) 3.15 4.20-5.40 [facility] HospitalEynltkaOGGOCMRKPX3410-77-15 10:00:00 Test Item Value Reference Range Interpretation Comments WBC (test code = WBC) 8.4 3.7-10.4 [facility] HospitalKacjgfqEECBWZENFW0749-17-33 10:00:00 Test Item Value Reference Range Interpretation Comments Platelet (test code = Platelet) 118 133-450 [facility] HospitalQccrozzYUFWOPAZJE2943-66-41 10:00:00 Test Item Value Reference Range Interpretation Comments RDW (test code = RDW) 19.9 11.5-14.5 [facility] HospitalUbztnwmMKCMZWWAWS0313-86-47 10:00:00 Test Item Value Reference Range Interpretation Comments MCHC (test code = MCHC) 34.6 32.0-36.0 [facility] HospitalIxhhnnzMVAKDFITRH5474-01-10 10:00:00 Test Item Value Reference Range Interpretation Comments MCH (test code = MCH) 31.2 pg 27.0-31.0 [facility] HospitalGqnrgotRUUSXSVVTI2008-97-99 10:00:00 Test Item Value Reference Range Interpretation Comments MCV (test code = MCV) 90.2 81.0-99.0 [facility] HospitalWbizhmyPSHTJKUSZJ1304-65-32 10:00:00 Test Item Value Reference Range Interpretation Comments Monocytes # (test code 0.7 See_Comment [Aut omated message] The = Monocytes #) system which generated this result tra nsmitted reference range : <=0.8. The reference r katie was not used to int erpret this result as normal/abnormal . [facility] HospitalQnnmxusVKGDGSHZBZ0602-42-18 10:00:00 Test Item Value Reference Range Interpretation Comments Lymphocytes # (test code = Lymphocytes 2.2 1.0-5.5 #) [facility] HospitalCzmiejdYXNCBJGNJL0504-28-85 10:00:00 Test Item Value Reference Range Interpretation Comments Eosinophils # (test code 0.1 See_Comment [A utomated message] The = Eosinophils #) system whic h generated this result tra nsmitted reference range : <=0.5. The reference r katie was not used to int erpret this result as normal/abnormal . [facility] HospitalSpchrutJCTFUKWEZL2546-75-23 10:00:00 Test Item Value Reference Range Interpretation Comments Basophils # (test code 0.0 See_Comment [Aut omated message] The = Basophils #) system which generated this result tra nsmitted reference range : <=0.2. The reference r katie was not used to int erpret this result as normal/abnormal . [facility] HospitalGdbsjpbSSUBWGBDQG8287-17-57 10:00:00 Test Item Value Reference Range Interpretation Comments Segs (test code = Segs) 63.5 45.0-75.0 [facility] HospitalXyfvvgaQWURUMYBUM2751-13-79 10:00:00 Test Item Value Reference Range Interpretation Comments Monocytes (test code = Monocytes) 8.5 2.0-12.0 [facility] HospitalBhpuosdTAHXVZZQJK4427-73-84 10:00:00 Test Item Value Reference Range Interpretation Comments Lymphocytes (test code = Lymphocytes) 25.9 20.0-40.0 [facility] HospitalKebuvwbLFTCYARCJU9379-98-42 10:00:00 Test Item Value Reference Range Interpretation Comments Segs-Bands # (test code = Segs-Bands #) 5.3 1.5-8.1 [facility] HospitalReuafckKFJINHYPAW9462-91-69 10:00:00 Test Item Value Reference Range Interpretation Comments Basophils (test code = 0.3 See_Comment [Aut omated message] The Basophils) system which ge nerated this result tra nsmitted reference range : <=1.0. The reference r katie was not used to int erpret this result as normal/abnormal . [facility] HospitalMeunbefGAEBAZSWXK8262-85-38 10:00:00 Test Item Value Reference Range Interpretation Comments Eosinophils (test code = 1.8 See_Comment [A utomated message] The Eosinophils) system which ge nerated this result tra nsmitted reference range : <=4.0. The reference r katie was not used to int erpret this result as normal/abnormal . [facility]KzgvcarXOQNDI8973-79-08 10:00:00 Test Item Value Reference Range Interpretation Comments CHD Risk (test code = CHD Risk) 3.00 3.90-5.80 [facility] CenterRqjxmhkBFFXRG0628-08-02 10:00:00 Test Item Value Reference Range Interpretation Comments VLDL (test code = VLDL) 24 [facility] CenterBoxuhxdQPKKLC5906-73-01 10:00:00 Test Item Value Reference Range Interpretation Comments LDL (Calculated) (test code = LDL 28 (Calculated)) [facility] HospitalBlalmdsSAWXVH4823-85-23 10:00:00 Test Item Value Reference Range Interpretation Comments HDL (test code = HDL) 26 [facility] HospitalOxmcbglIOAMOP3640-42-78 10:00:00 Test Item Value Reference Range Interpretation Comments Trig (test code = Trig) 122 [facility] HospitalYokajmwQMAZYW0248-14-29 10:00:00 Test Item Value Reference Range Interpretation Comments Chol (test code = Chol) 78 [facility] HospitalannTHYROID MBCRE0255-65-88 10:00:00 Test Item Value Reference Range Interpretation Comments T4 (test code = T4) 7.9 4.7-13.3 [facility]annTHYROID RJTTV8642-17-32 10:00:00 Test Item Value Reference Range Interpretation Comments T3 Uptake (test code = T3 Uptake) 40 31-39 [facility]annTHYROID MSOTJ7127-62-69 10:00:00 Test Item Value Reference Range Interpretation Comments TSH (test code = TSH) 3.360 0.360-3.740 [facility]annTHYROID EYCOW2648-73-58 10:00:00 Test Item Value Reference Range Interpretation Comments FTI (test code = FTI) 3.2 [facility]annCHEM NCXYN1165-06-51 10:00:00 Test Item Value Reference Range Interpretation Comments Phosphorus (test code = Phosphorus) 2.5 2.5-4.5 [facility]annCHEM CVJNY5916-35-49 10:00:00 Test Item Value Reference Range Interpretation Comments Magnesium Lvl (test code = Magnesium 1.9 1.8-2.4 Lvl) [facility] HospitalRltvtfoFKXGXSJAZLGF8853-76-40 10:00:00 Test Item Value Reference Range Interpretation Comments AGAP (test code = AGAP) 9.9 10.0-20.0 [facility] HospitalRzkwvgePJLOWPQBKQUD2249-49-87 10:00:00 Test Item Value Reference Range Interpretation Comments eGFR (test code = eGFR) 61 [facility] HospitalQccrsysZOHGUQRVFKZK8833-79-20 10:00:00 Test Item Value Reference Range Interpretation Comments BUN (test code = BUN) 9 7-22 [facility] HospitalVgvzuzaMFZHEOPQTMTK6060-63-48 10:00:00 Test Item Value Reference Range Interpretation Comments Glucose Lvl (test code = Glucose Lvl) 102 70-99 [facility] HospitalQbmbkcwWBZSQKEZVVQV0432-55-50 10:00:00 Test Item Value Reference Range Interpretation Comments Potassium Lvl (test code = Potassium 3.9 3.5-5.1 Lvl) [facility] HospitalZgkxmqcEDHALOHUYNQE5167-28-25 10:00:00 Test Item Value Reference Range Interpretation Comments Creatinine Lvl (test code = Creatinine 1.0 0.5-1.4 Lvl) [facility] HospitalLmjlzaxJRUAZZRMJMDB0420-88-13 10:00:00 Test Item Value Reference Range Interpretation Comments Sodium Lvl (test code = Sodium Lvl) 141 135-145 [facility] HospitalCtnlvpvUFGAZNYIQYIB1947-24-33 10:00:00 Test Item Value Reference Range Interpretation Comments Calcium Lvl (test code = Calcium Lvl) 8.1 8.5-10.5 [facility] HospitalGlqjrbaGYDDILLNTPDY9398-61-79 10:00:00 Test Item Value Reference Range Interpretation Comments CO2 (test code = CO2) 26 24-32 [facility] HospitalWcfqnboDURXOPGLKNCM0718-77-53 10:00:00 Test Item Value Reference Range Interpretation Comments Chloride Lvl (test code = Chloride Lvl) 109 95-109 [facility]UawhcppEOZEDRDXQZLKF5605-23-90 10:00:00 Test Item Value Reference Range Interpretation Comments FSH (test code = FSH) 33.9 [facility] HospitalQlrrdvqWZOLXRSFVP9216-21-79 10:00:00 Test Item Value Reference Range Interpretation Comments MPV (test code = MPV) 6.9 7.4-10.4 [facility] HospitalTwamydtDBJNMCAIZO3485-47-53 10:00:00 Test Item Value Reference Range Interpretation Comments Hct (test code = Hct) 28.4 36.0-48.0 [facility] HospitalWzqdbyxOEYEUHZUJB5511-26-73 10:00:00 Test Item Value Reference Range Interpretation Comments Hgb (test code = Hgb) 9.8 12.0-16.0 [facility] HospitalIdqiizxJSUCFUKFWH0990-16-49 10:00:00 Test Item Value Reference Range Interpretation Comments RBC (test code = RBC) 3.15 4.20-5.40 [facility] HospitalQbvmtkoDQLNIVVKIS7007-67-77 10:00:00 Test Item Value Reference Range Interpretation Comments WBC (test code = WBC) 8.4 3.7-10.4 [facility] HospitalHomsdhsSELPYVPYUT0008-84-94 10:00:00 Test Item Value Reference Range Interpretation Comments Platelet (test code = Platelet) 118 133-450 [facility] HospitalDshkslxOAFHNSOPVD7385-50-04 10:00:00 Test Item Value Reference Range Interpretation Comments RDW (test code = RDW) 19.9 11.5-14.5 [facility] HospitalAodbcpcBMEILWWYSQ8135-05-20 10:00:00 Test Item Value Reference Range Interpretation Comments MCHC (test code = MCHC) 34.6 32.0-36.0 [facility] HospitalFdjzalwYYZNTALYDW6285-04-66 10:00:00 Test Item Value Reference Range Interpretation Comments MCH (test code = MCH) 31.2 pg 27.0-31.0 [facility] HospitalLglevzvLEYJKIIETX5032-52-47 10:00:00 Test Item Value Reference Range Interpretation Comments MCV (test code = MCV) 90.2 81.0-99.0 [facility] HospitalVvclxptSNOHFTYOKM6949-22-25 10:00:00 Test Item Value Reference Range Interpretation Comments Monocytes # (test code 0.7 See_Comment [Aut omated message] The = Monocytes #) system which generated this result tra nsmitted reference range : <=0.8. The reference r katie was not used to int erpret this result as normal/abnormal . [facility] HospitalXbsonufAQXQQGZJSP7315-20-48 10:00:00 Test Item Value Reference Range Interpretation Comments Lymphocytes # (test code = Lymphocytes 2.2 1.0-5.5 #) [facility] HospitalYinrrtbVSWMTUVBIY1525-57-21 10:00:00 Test Item Value Reference Range Interpretation Comments Eosinophils # (test code 0.1 See_Comment [A utomated message] The = Eosinophils #) system whic h generated this result tra nsmitted reference range : <=0.5. The reference r katie was not used to int erpret this result as normal/abnormal . [facility] HospitalZrwhproNFEFBBRTSP8564-80-45 10:00:00 Test Item Value Reference Range Interpretation Comments Basophils # (test code 0.0 See_Comment [Aut omated message] The = Basophils #) system which generated this result tra nsmitted reference range : <=0.2. The reference r katie was not used to int erpret this result as normal/abnormal . [facility] HospitalAivzdxnFLRJEPLCSX7696-96-37 10:00:00 Test Item Value Reference Range Interpretation Comments Segs (test code = Segs) 63.5 45.0-75.0 [facility] HospitalMvjrnuqNYCDEZUTQA6083-02-71 10:00:00 Test Item Value Reference Range Interpretation Comments Monocytes (test code = Monocytes) 8.5 2.0-12.0 [facility] HospitalOjxpnhpGNJWHBQKZY7850-91-01 10:00:00 Test Item Value Reference Range Interpretation Comments Lymphocytes (test code = Lymphocytes) 25.9 20.0-40.0 [facility] HospitalJvyzvcyWXYLGJDGER2155-30-96 10:00:00 Test Item Value Reference Range Interpretation Comments Segs-Bands # (test code = Segs-Bands #) 5.3 1.5-8.1 [facility] HospitalErqyokkLKCVJCCOZI2502-90-12 10:00:00 Test Item Value Reference Range Interpretation Comments Basophils (test code = 0.3 See_Comment [Aut omated message] The Basophils) system which nerated this result tra nsmitted reference range : <=1.0. The reference r katie was not used to int erpret this result as normal/abnormal . [facility] HospitalOmgzgxbHRMZDQVTKA7365-05-84 10:00:00 Test Item Value Reference Range Interpretation Comments Eosinophils (test code = 1.8 See_Comment [A utomated message] The Eosinophils) system which ge nerated this result tra nsmitted reference range : <=4.0. The reference r katie was not used to int erpret this result as normal/abnormal . [facility] CenterLvtilnuRWUREP0806-92-31 10:00:00 Test Item Value Reference Range Interpretation Comments CHD Risk (test code = CHD Risk) 3.00 3.90-5.80 [facility] CenterVomixskWLGCOE4638-23-01 10:00:00 Test Item Value Reference Range Interpretation Comments VLDL (test code = VLDL) 24 [facility] CenterAdystonMCEFZO6923-67-29 10:00:00 Test Item Value Reference Range Interpretation Comments LDL (Calculated) (test code = LDL 28 (Calculated)) [facility] CenterVtugqbdGUKFPV7810-77-58 10:00:00 Test Item Value Reference Range Interpretation Comments HDL (test code = HDL) 26 [facility] CenterKtriytrKPJHOA4290-11-42 10:00:00 Test Item Value Reference Range Interpretation Comments Trig (test code = Trig) 122 [place] 986694-08-15 10:00:00 Test Item Value Reference Range Interpretation Comments Chol (test code = Chol) 78 [facility]annTHYROID HKSVD3918-40-96 10:00:00 Test Item Value Reference Range Interpretation Comments T4 (test code = T4) 7.9 4.7-13.3 [facility]annTHYROID MHEBX8522-44-94 10:00:00 Test Item Value Reference Range Interpretation Comments T3 Uptake (test code = T3 Uptake) 40 31-39 [facility]annTHYROID TBZSQ3840-63-08 10:00:00 Test Item Value Reference Range Interpretation Comments TSH (test code = TSH) 3.360 0.360-3.740 [facility]annTHYROID HSXZK0840-44-27 10:00:00 Test Item Value Reference Range Interpretation Comments FTI (test code = FTI) 3.2 [facility]annCHEM FXLOI8510-54-98 10:00:00 Test Item Value Reference Range Interpretation Comments Phosphorus (test code = Phosphorus) 2.5 2.5-4.5 [facility]annCHEM WPOBI5051-11-44 10:00:00 Test Item Value Reference Range Interpretation Comments Magnesium Lvl (test code = Magnesium 1.9 1.8-2.4 Lvl) [facility] HospitalAlghabuTGVOHQYLPOIN4730-00-85 10:00:00 Test Item Value Reference Range Interpretation Comments AGAP (test code = AGAP) 9.9 10.0-20.0 [facility] HospitalCweutduEHZNVPJDPHRE5719-30-79 10:00:00 Test Item Value Reference Range Interpretation Comments eGFR (test code = eGFR) 61 [facility] CenterJryaamcOFOECUZIXQQK1568-75-38 10:00:00 Test Item Value Reference Range Interpretation Comments BUN (test code = BUN) 9 7-22 [facility] CenterGdguguzQMSZIKTPDVTP0979-96-70 10:00:00 Test Item Value Reference Range Interpretation Comments Glucose Lvl (test code = Glucose Lvl) 102 70-99 [facility] CenterRzrpfdfFYLNIIRVJSIS7738-78-84 10:00:00 Test Item Value Reference Range Interpretation Comments Potassium Lvl (test code = Potassium 3.9 3.5-5.1 Lvl) [facility] HospitalAxvlmeuTXBDMWEHFELY3766-78-67 10:00:00 Test Item Value Reference Range Interpretation Comments Creatinine Lvl (test code = Creatinine 1.0 0.5-1.4 Lvl) [facility]QmptxzwKGJEJBWUPBJN8119-98-29 10:00:00 Test Item Value Reference Range Interpretation Comments Sodium Lvl (test code = Sodium Lvl) 141 135-145 [facility] HospitalTjyzlxvZTGTKJOLLOMD0190-08-93 10:00:00 Test Item Value Reference Range Interpretation Comments Calcium Lvl (test code = Calcium Lvl) 8.1 8.5-10.5 [facility] HospitalCgefdtfFMRRYYOPYHDL2017-99-01 10:00:00 Test Item Value Reference Range Interpretation Comments CO2 (test code = CO2) 26 24-32 [facility] HospitalJklksweUTNVUPYGWFVK5692-61-80 10:00:00 Test Item Value Reference Range Interpretation Comments Chloride Lvl (test code = Chloride Lvl) 109 95-109 [place] [id number] 10:00:00 Test Item Value Reference Range Interpretation Comments FSH (test code = FSH) 33.9 [facility] HospitalErhggscMGSJYNSHML4353-16-35 10:00:00 Test Item Value Reference Range Interpretation Comments MPV (test code = MPV) 6.9 7.4-10.4 [facility] HospitalShhjanqULYJLZJULR8310-74-74 10:00:00 Test Item Value Reference Range Interpretation Comments Hct (test code = Hct) 28.4 36.0-48.0 [facility] HospitalQlwrllhPVIKYQPQDG0155-73-88 10:00:00 Test Item Value Reference Range Interpretation Comments Hgb (test code = Hgb) 9.8 12.0-16.0 [facility] HospitalPjvaztrLUZJNAXJUD2004-82-26 10:00:00 Test Item Value Reference Range Interpretation Comments RBC (test code = RBC) 3.15 4.20-5.40 [facility] HospitalAcxkpprZHRABCJTJN5332-70-88 10:00:00 Test Item Value Reference Range Interpretation Comments WBC (test code = WBC) 8.4 3.7-10.4 [facility] HospitalHenqmnkHMXBAYUJLA9519-94-42 10:00:00 Test Item Value Reference Range Interpretation Comments Platelet (test code = Platelet) 118 133-450 [facility] HospitalUkraotlBYRDFVWNRI8513-51-86 10:00:00 Test Item Value Reference Range Interpretation Comments RDW (test code = RDW) 19.9 11.5-14.5 [facility] HospitalAerqkcdQEUSGSUYSK2481-54-56 10:00:00 Test Item Value Reference Range Interpretation Comments MCHC (test code = MCHC) 34.6 32.0-36.0 [facility] HospitalLavfsyyMUDXYAEADJ0806-18-34 10:00:00 Test Item Value Reference Range Interpretation Comments MCH (test code = MCH) 31.2 pg 27.0-31.0 [facility] HospitalFoxwccbDLAMFTBMXP2509-11-88 10:00:00 Test Item Value Reference Range Interpretation Comments MCV (test code = MCV) 90.2 81.0-99.0 [facility] HospitalBmanglkWLKTZECBYJ1958-24-82 10:00:00 Test Item Value Reference Range Interpretation Comments Monocytes # (test code 0.7 See_Comment [Aut omated message] The = Monocytes #) system which generated this result tra nsmitted reference range : <=0.8. The reference r katie was not used to int erpret this result as normal/abnormal . [facility] HospitalBuxkqvuMWZTKEIRXE7696-02-58 10:00:00 Test Item Value Reference Range Interpretation Comments Lymphocytes # (test code = Lymphocytes 2.2 1.0-5.5 #) [facility] HospitalAsoaiciICAIZAVZIA3165-58-93 10:00:00 Test Item Value Reference Range Interpretation Comments Eosinophils # (test code 0.1 See_Comment [A utomated message] The = Eosinophils #) system whic h generated this result tra nsmitted reference range : <=0.5. The reference r katie was not used to int erpret this result as normal/abnormal . [facility] HospitalUoarigxVWSFLGTSWV6130-81-77 10:00:00 Test Item Value Reference Range Interpretation Comments Basophils # (test code 0.0 See_Comment [Aut omated message] The = Basophils #) system which generated this result tra nsmitted reference range : <=0.2. The reference r katie was not used to int erpret this result as normal/abnormal . [facility] HospitalLtwvsciNYOFSEDUOT5542-99-92 10:00:00 Test Item Value Reference Range Interpretation Comments Segs (test code = Segs) 63.5 45.0-75.0 [facility] HospitalHlsiwbvDWVGMVMFVQ3827-98-07 10:00:00 Test Item Value Reference Range Interpretation Comments Monocytes (test code = Monocytes) 8.5 2.0-12.0 [facility] HospitalDendurgVDRLYXOIZA2604-63-37 10:00:00 Test Item Value Reference Range Interpretation Comments Lymphocytes (test code = Lymphocytes) 25.9 20.0-40.0 [facility] HospitalFumemitDOJQKJRVJG2562-61-18 10:00:00 Test Item Value Reference Range Interpretation Comments Segs-Bands # (test code = Segs-Bands #) 5.3 1.5-8.1 [facility] HospitalFfzriwxWLNXHHDXAK1971-14-49 10:00:00 Test Item Value Reference Range Interpretation Comments Basophils (test code = 0.3 See_Comment [Aut omated message] The Basophils) system which ge nerated this result tra nsmitted reference range : <=1.0. The reference r katie was not used to int erpret this result as normal/abnormal . [facility] [facility]IT[facility]ZZZ1875-78-65 10:00:00 Test Item Value Reference Range Interpretation Comments Eosinophils (test code = 1.8 See_Comment [A utomated message] The Eosinophils) system which ge nerated this result tra nsmitted reference range : <=4.0. The reference r katie was not used to int erpret this result as normal/abnormal . [facility] CenterMutkbrmOMYQGP9621-78-26 10:00:00 Test Item Value Reference Range Interpretation Comments CHD Risk (test code = CHD Risk) 3.00 3.90-5.80 [facility] CenterRjwvqpaXTYLEB4586-21-47 10:00:00 Test Item Value Reference Range Interpretation Comments VLDL (test code = VLDL) 24 [facility]EsxmbdjDADPAD0512-44-85 10:00:00 Test Item Value Reference Range Interpretation Comments LDL (Calculated) (test code = LDL 28 (Calculated)) [facility] CenterYxbujekOKGUWN0766-06-13 10:00:00 Test Item Value Reference Range Interpretation Comments HDL (test code = HDL) 26 [facility] CenterOjtzbftBCPJUO1527-89-16 10:00:00 Test Item Value Reference Range Interpretation Comments Trig (test code = Trig) 122 [facility] CenterSyapwpfXTWYBN8586-81-24 10:00:00 Test Item Value Reference Range Interpretation Comments Chol (test code = Chol) 78 [facility] CenterTHYROID SZTMT0455-89-32 10:00:00 Test Item Value Reference Range Interpretation Comments T4 (test code = T4) 7.9 4.7-13.3 [facility] CenterTHY[facility] ARQEM8874-34-84 10:00:00 Test Item Value Reference Range Interpretation Comments T3 Uptake (test code = T3 Uptake) 40 31-39 [facility] CenterTHY[facility]ID ZQTZD7541-35-03 10:00:00 Test Item Value Reference Range Interpretation Comments TSH (test code = TSH) 3.360 0.360-3.740 [facility] CenterTHY[facility] BJJMV7528-30-93 10:00:00 Test Item Value Reference Range Interpretation Comments FTI (test code = FTI) 3.2 [facility] CenterCHEM DLRHF6257-01-12 10:00:00 Test Item Value Reference Range Interpretation Comments Phosphorus (test code = Phosphorus) 2.5 2.5-4.5 [facility] CenterCHEM [id number] 10:00:00 Test Item Value Reference Range Interpretation Comments Magnesium Lvl (test code = Magnesium 1.9 1.8-2.4 Lvl) [facility] HospitalBoashepNANZFGYOSLTB0121-46-54 10:00:00 Test Item Value Reference Range Interpretation Comments AGAP (test code = AGAP) 9.9 10.0-20.0 [facility] HospitalBcaqwmnNIYFGEUMFONF3307-26-62 10:00:00 Test Item Value Reference Range Interpretation Comments eGFR (test code = eGFR) 61 [facility] HospitalLbegprzBJGAGQFGWWBT1128-21-59 10:00:00 Test Item Value Reference Range Interpretation Comments BUN (test code = BUN) 9 7-22 [facility] HospitalAnovjblHUANZKWABOFV9629-17-97 10:00:00 Test Item Value Reference Range Interpretation Comments Glucose Lvl (test code = Glucose Lvl) 102 70-99 [facility] HospitalFtumvusPAIOZRBCFYMV3904-87-14 10:00:00 Test Item Value Reference Range Interpretation Comments Potassium Lvl (test code = Potassium 3.9 3.5-5.1 Lvl) [facility] HospitalGfzfnyxIVOXTKAKPFDE1199-81-55 10:00:00 Test Item Value Reference Range Interpretation Comments Creatinine Lvl (test code = Creatinine 1.0 0.5-1.4 Lvl) [facility] HospitalXqxpaldKEXCROUOJUMO8183-97-36 10:00:00 Test Item Value Reference Range Interpretation Comments Sodium Lvl (test code = Sodium Lvl) 141 135-145 [facility] HospitalUrzdmliZDUGZKCLXYPL1977-50-69 10:00:00 Test Item Value Reference Range Interpretation Comments Calcium Lvl (test code = Calcium Lvl) 8.1 8.5-10.5 [facility] HospitalTudqahnBXMQRXQUGCOG3277-16-21 10:00:00 Test Item Value Reference Range Interpretation Comments CO2 (test code = CO2) 26 24-32 [facility] HospitalBogcvhvPUBHXZRYAJXL4038-54-90 10:00:00 Test Item Value Reference Range Interpretation Comments Chloride Lvl (test code = Chloride Lvl) 109 95-109 [facility]VasksmpAVIJHZTWWZXHQ4591-23-33 10:00:00 Test Item Value Reference Range Interpretation Comments FSH (test code = FSH) 33.9 [facility]YvsfaflKZUQNMFIMF5868-77-89 10:00:00 Test Item Value Reference Range Interpretation Comments MPV (test code = MPV) 6.9 7.4-10.4 [facility] HospitalPiiuedeZNFEPQTIJS9860-30-29 10:00:00 Test Item Value Reference Range Interpretation Comments Hct (test code = Hct) 28.4 36.0-48.0 [facility] HospitalRgqhyhgJXCBARCOHT7945-97-48 10:00:00 Test Item Value Reference Range Interpretation Comments Hgb (test code = Hgb) 9.8 12.0-16.0 [facility] HospitalJuxlrwzKIVUPQMBAZ3310-01-84 10:00:00 Test Item Value Reference Range Interpretation Comments RBC (test code = RBC) 3.15 4.20-5.40 [facility] HospitalPmbebdsOIPVHQQJBZ8911-40-95 10:00:00 Test Item Value Reference Range Interpretation Comments WBC (test code = WBC) 8.4 3.7-10.4 [facility] HospitalMpsxdirAUELITFLOS2973-39-57 10:00:00 Test Item Value Reference Range Interpretation Comments Platelet (test code = Platelet) 118 133-450 [facility] HospitalBkystnmPUBNXVKJBH3538-20-92 10:00:00 Test Item Value Reference Range Interpretation Comments RDW (test code = RDW) 19.9 11.5-14.5 [facility] HospitalLopsbglTFPLHLMSBT7270-27-06 10:00:00 Test Item Value Reference Range Interpretation Comments MCHC (test code = MCHC) 34.6 32.0-36.0 [facility] HospitalFwqfnkcNGQTPFXYCN6221-68-85 10:00:00 Test Item Value Reference Range Interpretation Comments MCH (test code = MCH) 31.2 pg 27.0-31.0 [facility] HospitalLpcvganQRNMJNWIFN3602-48-49 10:00:00 Test Item Value Reference Range Interpretation Comments MCV (test code = MCV) 90.2 81.0-99.0 [facility] HospitalHqttexxETJQFQSVKC4554-88-22 10:00:00 Test Item Value Reference Range Interpretation Comments Monocytes # (test code 0.7 See_Comment [Aut omated message] The = Monocytes #) system which generated this result tra nsmitted reference range : <=0.8. The reference r katie was not used to int erpret this result as normal/abnormal . [facility] HospitalRlamqhjCHXYHLRJXD2840-25-76 10:00:00 Test Item Value Reference Range Interpretation Comments Lymphocytes # (test code = Lymphocytes 2.2 1.0-5.5 #) [facility] HospitalVjhxosaFZFKXGYWXW0557-17-44 10:00:00 Test Item Value Reference Range Interpretation Comments Eosinophils # (test code 0.1 See_Comment [A utomated message] The = Eosinophils #) system [employer] generated this result tra nsmitted reference range : <=0.5. The reference r katie was not used to int erpret this result as normal/abnormal . [facility] HospitalFqcrozwIFMZIZUYTR0431-92-19 10:00:00 Test Item Value Reference Range Interpretation Comments Monocytes # (test code 0.7 See_Comment [Aut omated message] The = Monocytes #) system which generated this result tra nsmitted reference range : <=0.8. The reference r katie was not used to int erpret this result as normal/abnormal . [facility] HospitalHvbiuumOZWGXGUENY8270-48-44 10:00:00 Test Item Value Reference Range Interpretation Comments Lymphocytes # (test code = Lymphocytes 2.2 1.0-5.5 #) [facility] HospitalJnsvxlbIJSJBJNXBG6904-53-16 10:00:00 Test Item Value Reference Range Interpretation Comments Eosinophils # (test code 0.1 See_Comment [A utomated message] The = Eosinophils #) system [employer] generated this result tra nsmitted reference range : <=0.5. The reference r katie was not used to int erpret this result as normal/abnormal . [facility] HospitalNlglaeaXEISQOHWWD1680-23-37 10:00:00 Test Item Value Reference Range Interpretation Comments Basophils # (test code 0.0 See_Comment [Aut omated message] The = Basophils #) system which generated this result tra nsmitted reference range : <=0.2. The reference r katie was not used to int erpret this result as normal/abnormal . [facility] HospitalDaxgkpwPFDFHTUYFW2016-72-66 10:00:00 Test Item Value Reference Range Interpretation Comments Segs (test code = Segs) 63.5 45.0-75.0 [facility] HospitalJsskczhZFNZKITPLH3091-96-77 10:00:00 Test Item Value Reference Range Interpretation Comments Monocytes (test code = Monocytes) 8.5 2.0-12.0 [facility] HospitalQliyltkWFGPUOFYSH6988-21-14 10:00:00 Test Item Value Reference Range Interpretation Comments Lymphocytes (test code = Lymphocytes) 25.9 20.0-40.0 [facility] HospitalCecowzwZLTXHZHHUJ3034-06-30 10:00:00 Test Item Value Reference Range Interpretation Comments Segs-Bands # (test code = Segs-Bands #) 5.3 1.5-8.1 [facility] HospitalJtbrscjJSTOHNZPOY8825-82-99 10:00:00 Test Item Value Reference Range Interpretation Comments Basophils (test code = 0.3 See_Comment [Aut omated message] The Basophils) system which nerated this result tra nsmitted reference range : <=1.0. The reference r katie was not used to int erpret this result as normal/abnormal . [facility] HospitalGtqefseKEEOFZCLHO6507-06-75 10:00:00 Test Item Value Reference Range Interpretation Comments Eosinophils (test code = 1.8 See_Comment [A utomated message] The Eosinophils) system which ge nerated this result tra nsmitted reference range : <=4.0. The reference r katie was not used to int erpret this result as normal/abnormal . [facility] CenterWdrjpriJHHZSI7372-14-78 10:00:00 Test Item Value Reference Range Interpretation Comments CHD Risk (test code = CHD Risk) 3.00 3.90-5.80 [facility] CenterRamvlryYJIVKH2490-28-51 10:00:00 Test Item Value Reference Range Interpretation Comments VLDL (test code = VLDL) 24 [facility] CenterGilmgtiDVLLIJ1781-96-65 10:00:00 Test Item Value Reference Range Interpretation Comments LDL (Calculated) (test code = LDL 28 (Calculated)) [facility] CenterFznrochKYLDDP6057-45-70 10:00:00 Test Item Value Reference Range Interpretation Comments HDL (test code = HDL) 26 [facility] CenterDomcrhpQTHCXU1508-51-76 10:00:00 Test Item Value Reference Range Interpretation Comments Trig (test code = Trig) 122 [facility] HospitalMiybelyQKTNMU3568-51-30 10:00:00 Test Item Value Reference Range Interpretation Comments Chol (test code = Chol) 78 [facility] HospitalannTHYROID KTICP8409-06-76 10:00:00 Test Item Value Reference Range Interpretation Comments T4 (test code = T4) 7.9 4.7-13.3 [facility] HospitalannTHYROID SIQRP2933-53-59 10:00:00 Test Item Value Reference Range Interpretation Comments T3 Uptake (test code = T3 Uptake) 40 31-39 [facility] HospitalannTHYROID WWULI2746-11-69 10:00:00 Test Item Value Reference Range Interpretation Comments TSH (test code = TSH) 3.360 0.360-3.740 [facility] HospitalannTHYROID BBBOK0878-88-10 10:00:00 Test Item Value Reference Range Interpretation Comments FTI (test code = FTI) 3.2 [facility] HospitalannCHEM DJFJU2900-83-15 10:00:00 Test Item Value Reference Range Interpretation Comments Phosphorus (test code = Phosphorus) 2.5 2.5-4.5 [facility] HospitalannCHEM HRMEL5668-00-89 10:00:00 Test Item Value Reference Range Interpretation Comments Magnesium Lvl (test code = Magnesium 1.9 1.8-2.4 Lvl) [facility] CenterSryvfufKHQCVRWTMIPF6922-31-84 10:00:00 Test Item Value Reference Range Interpretation Comments AGAP (test code = AGAP) 9.9 10.0-20.0 [facility] CenterXdhwxdbCBFKQZIRUXVZ1675-21-37 10:00:00 Test Item Value Reference Range Interpretation Comments eGFR (test code = eGFR) 61 [facility] CenterBbppiwaUYIASKZHHYNI1617-95-67 10:00:00 Test Item Value Reference Range Interpretation Comments BUN (test code = BUN) 9 7-22 [facility] CenterUcahymsDHCJGPIFTBLE7092-59-01 10:00:00 Test Item Value Reference Range Interpretation Comments Glucose Lvl (test code = Glucose Lvl) 102 70-99 [facility] CenterBeljtywFTRBGTZEEIQI9644-71-89 10:00:00 Test Item Value Reference Range Interpretation Comments Potassium Lvl (test code = Potassium 3.9 3.5-5.1 Lvl) [facility] HospitalKznvqqzTVDYRCLIBXVD3143-67-43 10:00:00 Test Item Value Reference Range Interpretation Comments Creatinine Lvl (test code = Creatinine 1.0 0.5-1.4 Lvl) [facility] HospitalKombyjfFHAJCEWONMVX0167-56-29 10:00:00 Test Item Value Reference Range Interpretation Comments Sodium Lvl (test code = Sodium Lvl) 141 135-145 [facility] HospitalGoilouuPUOZCCHFACHK6376-03-71 10:00:00 Test Item Value Reference Range Interpretation Comments Calcium Lvl (test code = Calcium Lvl) 8.1 8.5-10.5 [facility] HospitalTooblehSKMDFEAKLFOB9770-72-12 10:00:00 Test Item Value Reference Range Interpretation Comments CO2 (test code = CO2) 26 24-32 [facility] HospitalWavdmssKLAIVAFPEEKE0937-60-21 10:00:00 Test Item Value Reference Range Interpretation Comments Chloride Lvl (test code = Chloride Lvl) 109 95-109 [place] [id number] 10:00:00 Test Item Value Reference Range Interpretation Comments FSH (test code = FSH) 33.9 [facility] HospitalFgwpheyTATPHQLPST6692-43-16 10:00:00 Test Item Value Reference Range Interpretation Comments MPV (test code = MPV) 6.9 7.4-10.4 [facility] HospitalFufonucFPYCSMIRYL6562-81-08 10:00:00 Test Item Value Reference Range Interpretation Comments Hct (test code = Hct) 28.4 36.0-48.0 [facility] HospitalRuzoaysUOJZYDCFPP9832-56-49 10:00:00 Test Item Value Reference Range Interpretation Comments Hgb (test code = Hgb) 9.8 12.0-16.0 [facility] HospitalGehxkciTNPMTPGYNS4757-93-61 10:00:00 Test Item Value Reference Range Interpretation Comments RBC (test code = RBC) 3.15 4.20-5.40 [facility] HospitalJnmkmrpDQHMLKHZQV8521-12-06 10:00:00 Test Item Value Reference Range Interpretation Comments WBC (test code = WBC) 8.4 3.7-10.4 [facility] HospitalTfblldeMQBIYKKYEM3456-89-04 10:00:00 Test Item Value Reference Range Interpretation Comments Platelet (test code = Platelet) 118 133-450 [facility] HospitalVrkvuvtPHMLKWCPIG8555-33-51 10:00:00 Test Item Value Reference Range Interpretation Comments RDW (test code = RDW) 19.9 11.5-14.5 [facility] HospitalSkkztykUWEESTRQLF8911-79-39 10:00:00 Test Item Value Reference Range Interpretation Comments MCHC (test code = MCHC) 34.6 32.0-36.0 [facility] RegionDfkwaulSXLXFRUCJD4282-81-08 10:00:00 Test Item Value Reference Range Interpretation Comments MCH (test code = MCH) 31.2 pg 27.0-31.0 [facility] HospitalJzdzqosFPEQDNDJMN5030-54-27 10:00:00 Test Item Value Reference Range Interpretation Comments MCV (test code = MCV) 90.2 81.0-99.0 [facility] CenterPrinc[facility] [employer] System,[employer] JAMDQ0074-02-49 09:24:00 Test Item Value Reference Range Interpretation Comments Phosphorus (test code = Phosphorus) 2.5 2.5-4.5 [facility] CenterPrinc[facility],[employer] FJOPC1526-01-27 09:24:00 Test Item Value Reference Range Interpretation Comments Magnesium Lvl (test code = Magnesium 1.4 1.8-2.4 Lvl) [facility] HospitalXrrxdfaGPGJNIYBRBLF1324-71-13 09:24:00 Test Item Value Reference Range Interpretation Comments AGAP (test code = AGAP) 10.1 10.0-20.0 [facility] HospitalOfwdovkCBAAKPKXEQIV6081-50-72 09:24:00 Test Item Value Reference Range Interpretation Comments BUN (test code = BUN) 12 7-22 [facility] HospitalLebcspbZTWDLXRISDFI5446-21-76 09:24:00 Test Item Value Reference Range Interpretation Comments Glucose Lvl (test code = Glucose Lvl) 103 70-99 [facility] HospitalRdwdefmSJXCDOLNIPOP7194-02-09 09:24:00 Test Item Value Reference Range Interpretation Comments Sodium Lvl (test code = Sodium Lvl) 138 135-145 [facility] HospitalPgkicerMLWARIIXIQEY3860-03-70 09:24:00 Test Item Value Reference Range Interpretation Comments Creatinine Lvl (test code = Creatinine 1.1 0.5-1.4 Lvl) [facility] HospitalFfcwtxoUVEPLWXPQVTP5628-23-61 09:24:00 Test Item Value Reference Range Interpretation Comments Chloride Lvl (test code = Chloride Lvl) 107 95-109 [facility] HospitalFtcvobqRYABJBLSHKAS3035-23-74 09:24:00 Test Item Value Reference Range Interpretation Comments Potassium Lvl (test code = Potassium 4.1 3.5-5.1 Lvl) [facility] HospitalFkcktzwSLLVTPAKKWLD4520-40-03 09:24:00 Test Item Value Reference Range Interpretation Comments CO2 (test code = CO2) 25 24-32 [facility] HospitalJhqtvomKFZWSHTNSSPV2291-13-40 09:24:00 Test Item Value Reference Range Interpretation Comments Calcium Lvl (test code = Calcium Lvl) 8.3 8.5-10.5 [facility] HospitalXstbgvzLWMDMBQQXKJJ5047-27-78 09:24:00 Test Item Value Reference Range Interpretation Comments eGFR (test code = eGFR) 54 [facility] HospitalQsqqquaYBGANDKRMP8549-89-12 09:24:00 Test Item Value Reference Range Interpretation Comments INR (test code = INR) 1.24 0.85-1.17 [facility] HospitalHpeiigePYMDVEAQXJ2211-95-97 09:24:00 Test Item Value Reference Range Interpretation Comments PT (test code = PT) 15.5 s 12.0-14.7 [facility] HospitalKzrgsbjRYUJJPOSGM4891-90-55 09:24:00 Test Item Value Reference Range Interpretation Comments PTT (test code = PTT) 31.2 s 22.9-35.8 [facility] HospitalHofznlnYQWCEUSOFY4572-88-43 09:24:00 Test Item Value Reference Range Interpretation Comments MPV (test code = MPV) 7.0 7.4-10.4 [facility] HospitalJebkigxNBXWWAWWFP9784-87-62 09:24:00 Test Item Value Reference Range Interpretation Comments RDW (test code = RDW) 19.0 11.5-14.5 [facility] HospitalRdmgtkkCQWOAJENDF9573-90-88 09:24:00 Test Item Value Reference Range Interpretation Comments MCH (test code = MCH) 31.0 pg 27.0-31.0 [facility] HospitalJrzwuegIRICJSIANW6325-27-38 09:24:00 Test Item Value Reference Range Interpretation Comments MCHC (test code = MCHC) 34.2 32.0-36.0 [facility] HospitalPqixocmYCBUOZTYSH9518-24-82 09:24:00 Test Item Value Reference Range Interpretation Comments WBC (test code = WBC) 8.6 3.7-10.4 [facility] HospitalRsiadftEXUENFLXRN4606-31-37 09:24:00 Test Item Value Reference Range Interpretation Comments Platelet (test code = Platelet) 116 133-450 [facility] HospitalRnphixnGCEADNDNRR4677-86-91 09:24:00 Test Item Value Reference Range Interpretation Comments Hgb (test code = Hgb) 10.3 12.0-16.0 [facility] HospitalRorqkwcZOPBMAAPGU8654-39-95 09:24:00 Test Item Value Reference Range Interpretation Comments RBC (test code = RBC) 3.34 4.20-5.40 [facility] HospitalMlkwewsYXWMFIMEVH8231-55-78 09:24:00 Test Item Value Reference Range Interpretation Comments Hct (test code = Hct) 30.2 36.0-48.0 [facility] HospitalJouhbeyUEZTWLQHTA1879-26-42 09:24:00 Test Item Value Reference Range Interpretation Comments MCV (test code = MCV) 90.6 81.0-99.0 [facility] HospitalTjcnsamKMCEZBKTFM4160-69-83 09:24:00 Test Item Value Reference Range Interpretation Comments Basophils # (test code 0.0 See_Comment [Aut omated message] The = Basophils #) system which generated this result tra nsmitted reference range : <=0.2. The reference r katie was not used to int erpret this result as normal/abnormal . [facility] HospitalIjvxpyoYRMZUVRLLX9561-11-46 09:24:00 Test Item Value Reference Range Interpretation Comments Eosinophils # (test code 0.0 See_Comment [A utomated message] The = Eosinophils #) system whic h generated this result tra nsmitted reference range : <=0.5. The reference r katie was not used to int erpret this result as normal/abnormal . [facility] HospitalExurdapFTBUMFDWZY0525-39-26 09:24:00 Test Item Value Reference Range Interpretation Comments Lymphocytes # (test code = Lymphocytes 1.3 1.0-5.5 #) [facility] HospitalMqxihfbISHZNTRYPL7165-07-59 09:24:00 Test Item Value Reference Range Interpretation Comments Segs-Bands # (test code = Segs-Bands #) 6.7 1.5-8.1 [facility] HospitalOmpifniLZSMFJAAAA0436-25-50 09:24:00 Test Item Value Reference Range Interpretation Comments Monocytes # (test code 0.5 See_Comment [Aut omated message] The = Monocytes #) system which generated this result tra nsmitted reference range : <=0.8. The reference r katie was not used to int erpret this result as normal/abnormal . [facility] HospitalMbbxxngJSYPLJTANW2033-15-89 09:24:00 Test Item Value Reference Range Interpretation Comments Eosinophils (test code = 0.2 See_Comment [A utomated message] The Eosinophils) system which ge nerated this result tra nsmitted reference range : <=4.0. The reference r katie was not used to int erpret this result as normal/abnormal . [facility] HospitalJhkyoyaNQLQPIBNBK4844-17-59 09:24:00 Test Item Value Reference Range Interpretation Comments Monocytes (test code = Monocytes) 6.4 2.0-12.0 [facility] HospitalUtlecjpKAFCNYQFWH6415-98-95 09:24:00 Test Item Value Reference Range Interpretation Comments Basophils (test code = 0.2 See_Comment [Aut omated message] The Basophils) system which ge nerated this result tra nsmitted reference range : <=1.0. The reference r katie was not used to int erpret this result as normal/abnormal . [facility] HospitalJqcyjeqEKIIEWCHCW6290-91-94 09:24:00 Test Item Value Reference Range Interpretation Comments Segs (test code = Segs) 77.6 45.0-75.0 [facility] HospitalFlfvnunMYSLHRPWSE4464-04-10 09:24:00 Test Item Value Reference Range Interpretation Comments Lymphocytes (test code = Lymphocytes) 15.6 20.0-40.0 [facility]2014-08-14 09:24:00 Test Item Value Reference Range Interpretation Comments Phosphorus (test code = Phosphorus) 2.5 2.5-4.5 [facility]2014-08-14 09:24:00 Test Item Value Reference Range Interpretation Comments Magnesium Lvl (test code = Magnesium 1.4 1.8-2.4 Lvl) [facility] HospitalNvorriyFAKJWTASBJOP7823-67-71 09:24:00 Test Item Value Reference Range Interpretation Comments AGAP (test code = AGAP) 10.1 10.0-20.0 [facility] HospitalGplthreHGKIBAVRLBZS0296-08-00 09:24:00 Test Item Value Reference Range Interpretation Comments BUN (test code = BUN) 12 7-22 [facility] HospitalYfytuauMVCDPIWBOWWN9235-28-09 09:24:00 Test Item Value Reference Range Interpretation Comments Glucose Lvl (test code = Glucose Lvl) 103 70-99 [facility] HospitalVtrsfiyPIYNNNPRMRAQ3515-44-95 09:24:00 Test Item Value Reference Range Interpretation Comments Sodium Lvl (test code = Sodium Lvl) 138 135-145 [facility] HospitalCnqgfsdCRVHOZCLXIYU6731-95-37 09:24:00 Test Item Value Reference Range Interpretation Comments Creatinine Lvl (test code = Creatinine 1.1 0.5-1.4 Lvl) [facility] HospitalOkwfzdmKXTBYLJOEVAE2539-22-38 09:24:00 Test Item Value Reference Range Interpretation Comments Chloride Lvl (test code = Chloride Lvl) 107 95-109 [facility] HospitalMvcjcahOWKBFTJTSCZM7496-04-60 09:24:00 Test Item Value Reference Range Interpretation Comments Potassium Lvl (test code = Potassium 4.1 3.5-5.1 Lvl) [facility] HospitalCkgphdvRNHPCNHBOFSZ1284-04-34 09:24:00 Test Item Value Reference Range Interpretation Comments CO2 (test code = CO2) 25 24-32 [facility] HospitalKaujmeiSTHXQKEPGYFC4973-17-49 09:24:00 Test Item Value Reference Range Interpretation Comments Calcium Lvl (test code = Calcium Lvl) 8.3 8.5-10.5 [facility] HospitalGjaxqgmETBJPKOCBTKD0352-91-72 09:24:00 Test Item Value Reference Range Interpretation Comments eGFR (test code = eGFR) 54 [facility] HospitalEfqsfiiOINMSXWVTL6754-25-97 09:24:00 Test Item Value Reference Range Interpretation Comments INR (test code = INR) 1.24 0.85-1.17 [facility] HospitalVacwmeaQHCXWFLNPL8208-36-45 09:24:00 Test Item Value Reference Range Interpretation Comments PT (test code = PT) 15.5 s 12.0-14.7 [facility] HospitalSltktutCCOPVKXPJW9333-86-13 09:24:00 Test Item Value Reference Range Interpretation Comments PTT (test code = PTT) 31.2 s 22.9-35.8 [facility] HospitalXidqoyoNZZLEKXIHJ3484-42-09 09:24:00 Test Item Value Reference Range Interpretation Comments MPV (test code = MPV) 7.0 7.4-10.4 [facility] HospitalYtxknodTJOXWLTYBF8972-99-56 09:24:00 Test Item Value Reference Range Interpretation Comments RDW (test code = RDW) 19.0 11.5-14.5 [facility] HospitalZpzupczEIGWMESYWK8649-10-45 09:24:00 Test Item Value Reference Range Interpretation Comments MCH (test code = MCH) 31.0 pg 27.0-31.0 [facility] HospitalDuvmaomNKXVVNNSRW8599-11-31 09:24:00 Test Item Value Reference Range Interpretation Comments MCHC (test code = MCHC) 34.2 32.0-36.0 [facility] HospitalWghgczlJCBZAAFPPE3652-59-14 09:24:00 Test Item Value Reference Range Interpretation Comments WBC (test code = WBC) 8.6 3.7-10.4 [facility] HospitalAilttrcBRBNPEPILJ8733-16-24 09:24:00 Test Item Value Reference Range Interpretation Comments Platelet (test code = Platelet) 116 133-450 [facility] HospitalFpsrhhnBUEEAMCHMI7914-94-92 09:24:00 Test Item Value Reference Range Interpretation Comments Hgb (test code = Hgb) 10.3 12.0-16.0 [facility] HospitalGpbfigsUEPFHFIYPF6152-79-04 09:24:00 Test Item Value Reference Range Interpretation Comments RBC (test code = RBC) 3.34 4.20-5.40 [facility] HospitalXmbaonxZGGAHVIPBB0346-34-84 09:24:00 Test Item Value Reference Range Interpretation Comments Hct (test code = Hct) 30.2 36.0-48.0 [facility] HospitalNxzaeqrUIVHYQTXFZ0959-40-36 09:24:00 Test Item Value Reference Range Interpretation Comments MCV (test code = MCV) 90.6 81.0-99.0 [facility] HospitalPtfslecKJVXOCJJDB5185-58-70 09:24:00 Test Item Value Reference Range Interpretation Comments Basophils # (test code 0.0 See_Comment [Aut omated message] The = Basophils #) system which generated this result tra nsmitted reference range : <=0.2. The reference r katie was not used to int erpret this result as normal/abnormal . [facility] HospitalAqshwmfMPTPPLNVUS4082-03-63 09:24:00 Test Item Value Reference Range Interpretation Comments Eosinophils # (test code 0.0 See_Comment [A utomated message] The = Eosinophils #) system whic h generated this result tra nsmitted reference range : <=0.5. The reference r katie was not used to int erpret this result as normal/abnormal . [facility] HospitalBlqkntxWBQWHVWTGX8502-38-22 09:24:00 Test Item Value Reference Range Interpretation Comments Lymphocytes # (test code = Lymphocytes 1.3 1.0-5.5 #) [facility] HospitalMiyegftDZKKHQNWQA9377-97-76 09:24:00 Test Item Value Reference Range Interpretation Comments Segs-Bands # (test code = Segs-Bands #) 6.7 1.5-8.1 [facility] HospitalObhcjvlXEEWTMMEQE4168-26-11 09:24:00 Test Item Value Reference Range Interpretation Comments Monocytes # (test code 0.5 See_Comment [Aut omated message] The = Monocytes #) system which generated this result tra nsmitted reference range : <=0.8. The reference r katie was not used to int erpret this result as normal/abnormal . [facility] HospitalWysnlywFWAVGQFDLS7461-36-67 09:24:00 Test Item Value Reference Range Interpretation Comments Eosinophils (test code = 0.2 See_Comment [A utomated message] The Eosinophils) system which ge nerated this result tra nsmitted reference range : <=4.0. The reference r katie was not used to int erpret this result as normal/abnormal . [facility] HospitalGykygsrJQAVRSHIPZ9223-27-39 09:24:00 Test Item Value Reference Range Interpretation Comments Monocytes (test code = Monocytes) 6.4 2.0-12.0 [facility] HospitalVqnqzscMBQFAWZLHF3223-10-85 09:24:00 Test Item Value Reference Range Interpretation Comments Basophils (test code = 0.2 See_Comment [Aut omated message] The Basophils) system which ge nerated this result tra nsmitted reference range : <=1.0. The reference r katie was not used to int erpret this result as normal/abnormal . [facility] HospitalBuhkpvkYQOHDQGZKP3705-18-53 09:24:00 Test Item Value Reference Range Interpretation Comments Segs (test code = Segs) 77.6 45.0-75.0 [facility] HospitalGhlpgsgKYDUHYEOKO6265-72-70 09:24:00 Test Item Value Reference Range Interpretation Comments Lymphocytes (test code = Lymphocytes) 15.6 20.0-40.0 [facility] VOUGN1715-03-51 09:24:00 Test Item Value Reference Range Interpretation Comments Phosphorus (test code = Phosphorus) 2.5 2.5-4.5 [facility] FHYQM0125-00-96 09:24:00 Test Item Value Reference Range Interpretation Comments Magnesium Lvl (test code = Magnesium 1.4 1.8-2.4 Lvl) [facility]ByggrfrJTOQGQQULSDA7598-43-28 09:24:00 Test Item Value Reference Range Interpretation Comments AGAP (test code = AGAP) 10.1 10.0-20.0 [facility] HospitalLhudsfvMQSIVDIOOGCB3005-34-51 09:24:00 Test Item Value Reference Range Interpretation Comments BUN (test code = BUN) 12 7-22 [facility] HospitalYhpsvybPJRHDVXUWTBT8750-85-21 09:24:00 Test Item Value Reference Range Interpretation Comments Glucose Lvl (test code = Glucose Lvl) 103 70-99 [facility] HospitalZbienwgJKBUEWXKYZLG3025-97-21 09:24:00 Test Item Value Reference Range Interpretation Comments Sodium Lvl (test code = Sodium Lvl) 138 135-145 [facility] HospitalFlpajkqYGFNSIATXEFC2665-69-49 09:24:00 Test Item Value Reference Range Interpretation Comments Creatinine Lvl (test code = Creatinine 1.1 0.5-1.4 Lvl) [facility] HospitalPjaviveBNUQOSMPWCKZ4009-23-79 09:24:00 Test Item Value Reference Range Interpretation Comments Chloride Lvl (test code = Chloride Lvl) 107 95-109 [facility] HospitalIhookbwPRONFKLIAPZV0319-03-45 09:24:00 Test Item Value Reference Range Interpretation Comments Potassium Lvl (test code = Potassium 4.1 3.5-5.1 Lvl) [facility] HospitalPcuossvIWQFRKRVWXSL6779-76-57 09:24:00 Test Item Value Reference Range Interpretation Comments CO2 (test code = CO2) 25 24-32 [facility] HospitalKkiilciVVTXDCNQLCRU4542-71-53 09:24:00 Test Item Value Reference Range Interpretation Comments Calcium Lvl (test code = Calcium Lvl) 8.3 8.5-10.5 [facility] HospitalCqmxbaoAGMFQKDNFZMR7620-17-06 09:24:00 Test Item Value Reference Range Interpretation Comments eGFR (test code = eGFR) 54 [facility] HospitalAxhtnzaBZBYNHKXBR9072-15-05 09:24:00 Test Item Value Reference Range Interpretation Comments INR (test code = INR) 1.24 0.85-1.17 [facility] HospitalNxoqztuGNPOXDZZIL3774-55-67 09:24:00 Test Item Value Reference Range Interpretation Comments PT (test code = PT) 15.5 s 12.0-14.7 [facility] HospitalVhnlworDWICASPCCA7534-43-31 09:24:00 Test Item Value Reference Range Interpretation Comments PTT (test code = PTT) 31.2 s 22.9-35.8 [facility] HospitalCscazavEVIIZFFDKS2451-90-58 09:24:00 Test Item Value Reference Range Interpretation Comments MPV (test code = MPV) 7.0 7.4-10.4 [facility] HospitalOkskiraUVOIZYRZOK1456-62-93 09:24:00 Test Item Value Reference Range Interpretation Comments RDW (test code = RDW) 19.0 11.5-14.5 [facility] HospitalJldjyfpNVYZPAPPTS5131-76-39 09:24:00 Test Item Value Reference Range Interpretation Comments MCH (test code = MCH) 31.0 pg 27.0-31.0 [facility] HospitalUidrsobQZPZVPZFYW9548-56-24 09:24:00 Test Item Value Reference Range Interpretation Comments MCHC (test code = MCHC) 34.2 32.0-36.0 [facility] HospitalExxfjkfJMENFPZTWE4084-86-41 09:24:00 Test Item Value Reference Range Interpretation Comments WBC (test code = WBC) 8.6 3.7-10.4 [facility] HospitalJqksythMPQRCSGFOS5676-77-97 09:24:00 Test Item Value Reference Range Interpretation Comments Platelet (test code = Platelet) 116 133-450 [facility] HospitalRxcsjfnTUEEZKMPQX6318-16-30 09:24:00 Test Item Value Reference Range Interpretation Comments Hgb (test code = Hgb) 10.3 12.0-16.0 [facility] HospitalZgqfggtUUKWQVODNL8940-58-43 09:24:00 Test Item Value Reference Range Interpretation Comments RBC (test code = RBC) 3.34 4.20-5.40 [facility] HospitalXldnvsyNGDUDYZHPE6896-85-32 09:24:00 Test Item Value Reference Range Interpretation Comments Hct (test code = Hct) 30.2 36.0-48.0 [facility] HospitalVuoshpsSJKNXGKODU6739-14-70 09:24:00 Test Item Value Reference Range Interpretation Comments MCV (test code = MCV) 90.6 81.0-99.0 [facility] HospitalFzsfbhcQGPCBKIFSJ4785-65-64 09:24:00 Test Item Value Reference Range Interpretation Comments Basophils # (test code 0.0 See_Comment [Aut omated message] The = Basophils #) system which generated this result tra nsmitted reference range : <=0.2. The reference r katie was not used to int erpret this result as normal/abnormal . [facility] HospitalAzxngmqXGARLLNUDF7831-28-16 09:24:00 Test Item Value Reference Range Interpretation Comments Eosinophils # (test code 0.0 See_Comment [A utomated message] The = Eosinophils #) system whic h generated this result tra nsmitted reference range : <=0.5. The reference r katie was not used to int erpret this result as normal/abnormal . [facility] HospitalKyisuitBDSMAMMXAP8610-61-84 09:24:00 Test Item Value Reference Range Interpretation Comments Lymphocytes # (test code = Lymphocytes 1.3 1.0-5.5 #) [facility] HospitalSguoqkeDNZWKAJGNP7949-14-35 09:24:00 Test Item Value Reference Range Interpretation Comments Segs-Bands # (test code = Segs-Bands #) 6.7 1.5-8.1 [facility] HospitalYcqruraZCSQFBPYOJ8308-46-92 09:24:00 Test Item Value Reference Range Interpretation Comments Monocytes # (test code 0.5 See_Comment [Aut omated message] The = Monocytes #) system which generated this result tra nsmitted reference range : <=0.8. The reference r katie was not used to int erpret this result as normal/abnormal . [facility] HospitalSvdhgulVDDKSRXOGU7881-48-74 09:24:00 Test Item Value Reference Range Interpretation Comments Eosinophils (test code = 0.2 See_Comment [A utomated message] The Eosinophils) system which ge nerated this result tra nsmitted reference range : <=4.0. The reference r katie was not used to int erpret this result as normal/abnormal . [facility] HospitalHadfrgfDYCJXACMXQ0781-43-56 09:24:00 Test Item Value Reference Range Interpretation Comments Monocytes (test code = Monocytes) 6.4 2.0-12.0 [facility] HospitalEifbbawWPHTLHIYOH1195-26-22 09:24:00 Test Item Value Reference Range Interpretation Comments Basophils (test code = 0.2 See_Comment [Aut omated message] The Basophils) system which ge nerated this result tra nsmitted reference range : <=1.0. The reference r katie was not used to int erpret this result as normal/abnormal . [facility] HospitalDzphdvhKPZAYLMXXK8573-29-42 09:24:00 Test Item Value Reference Range Interpretation Comments Segs (test code = Segs) 77.6 45.0-75.0 [facility] HospitalMsaevpnBIPJMNOBJD8158-49-28 09:24:00 Test Item Value Reference Range Interpretation Comments Lymphocytes (test code = Lymphocytes) 15.6 20.0-40.0 [facility]2014-08-14 09:24:00 Test Item Value Reference Range Interpretation Comments Phosphorus (test code = Phosphorus) 2.5 2.5-4.5 [facility] CenterCHEM APITN3702-62-10 09:24:00 Test Item Value Reference Range Interpretation Comments Magnesium Lvl (test code = Magnesium 1.4 1.8-2.4 Lvl) [facility] HospitalUeusyuiOEGHMDHIIBJI4893-85-66 09:24:00 Test Item Value Reference Range Interpretation Comments AGAP (test code = AGAP) 10.1 10.0-20.0 [facility] HospitalXnhfcqnRXIHIPPNPLZW3231-04-53 09:24:00 Test Item Value Reference Range Interpretation Comments BUN (test code = BUN) 12 7-22 [facility] HospitalTsrorepBDGACMPJVDFU2733-22-53 09:24:00 Test Item Value Reference Range Interpretation Comments Glucose Lvl (test code = Glucose Lvl) 103 70-99 [facility] HospitalOtabifxXFVNKWBIBBLI1083-36-96 09:24:00 Test Item Value Reference Range Interpretation Comments Sodium Lvl (test code = Sodium Lvl) 138 135-145 [facility] HospitalSzoxipaFCBZCXJTKPQB3570-04-49 09:24:00 Test Item Value Reference Range Interpretation Comments Creatinine Lvl (test code = Creatinine 1.1 0.5-1.4 Lvl) [facility] HospitalLzhgaghHQFLULGKCKGB5127-18-46 09:24:00 Test Item Value Reference Range Interpretation Comments Chloride Lvl (test code = Chloride Lvl) 107 95-109 [facility] HospitalEjvzdkfRAVBJRYEHCPF9150-67-87 09:24:00 Test Item Value Reference Range Interpretation Comments Potassium Lvl (test code = Potassium 4.1 3.5-5.1 Lvl) [facility] HospitalIsoodqwPZHRGKWRKWIW4537-27-00 09:24:00 Test Item Value Reference Range Interpretation Comments CO2 (test code = CO2) 25 24-32 [facility] HospitalNvibckmIQXMPMALEOBH2221-38-95 09:24:00 Test Item Value Reference Range Interpretation Comments Calcium Lvl (test code = Calcium Lvl) 8.3 8.5-10.5 [facility] HospitalYtmxnhjQLSMAWXMYZZS7211-15-77 09:24:00 Test Item Value Reference Range Interpretation Comments eGFR (test code = eGFR) 54 [facility]LllmlgmKZXFCKPLXZ1892-78-07 09:24:00 Test Item Value Reference Range Interpretation Comments INR (test code = INR) 1.24 0.85-1.17 [facility] HospitalJbxxwnrXUPGVGDQZB9602-33-93 09:24:00 Test Item Value Reference Range Interpretation Comments PT (test code = PT) 15.5 s 12.0-14.7 [facility] HospitalJfsfnwqWUMHXEEVRN6810-64-38 09:24:00 Test Item Value Reference Range Interpretation Comments PTT (test code = PTT) 31.2 s 22.9-35.8 [facility] HospitalPghheqlMBPKJWQRKH8201-14-74 09:24:00 Test Item Value Reference Range Interpretation Comments MPV (test code = MPV) 7.0 7.4-10.4 [facility] HospitalWjixusaSBBKKGONEA5289-87-73 09:24:00 Test Item Value Reference Range Interpretation Comments RDW (test code = RDW) 19.0 11.5-14.5 [facility] HospitalVjqqbvlMPAKKDHCZJ2200-52-28 09:24:00 Test Item Value Reference Range Interpretation Comments MCH (test code = MCH) 31.0 pg 27.0-31.0 [facility] HospitalMmlryzkYYMXBCXTBL1671-90-32 09:24:00 Test Item Value Reference Range Interpretation Comments MCHC (test code = MCHC) 34.2 32.0-36.0 [facility] HospitalImuypgaCIDPIDEPSH2734-66-03 09:24:00 Test Item Value Reference Range Interpretation Comments WBC (test code = WBC) 8.6 3.7-10.4 [facility] HospitalPqdpmahMZPKQQXCBS2163-37-55 09:24:00 Test Item Value Reference Range Interpretation Comments Platelet (test code = Platelet) 116 133-450 [facility] HospitalHnljlxhPSJFTTMICO5002-83-84 09:24:00 Test Item Value Reference Range Interpretation Comments Hgb (test code = Hgb) 10.3 12.0-16.0 [facility] HospitalIlodxidEUKAIWGPGT5718-33-73 09:24:00 Test Item Value Reference Range Interpretation Comments RBC (test code = RBC) 3.34 4.20-5.40 [facility] HospitalRjkdrnmQSMXPOHTGR6212-23-41 09:24:00 Test Item Value Reference Range Interpretation Comments Hct (test code = Hct) 30.2 36.0-48.0 [facility] HospitalIyqvxsvWMZNBZCGVW7284-86-37 09:24:00 Test Item Value Reference Range Interpretation Comments MCV (test code = MCV) 90.6 81.0-99.0 [facility] HospitalJhqgvdrWKJBGTWQMB2721-61-95 09:24:00 Test Item Value Reference Range Interpretation Comments Basophils # (test code 0.0 See_Comment [Aut omated message] The = Basophils #) system which generated this result tra nsmitted reference range : <=0.2. The reference r katie was not used to int erpret this result as normal/abnormal . [facility] HospitalOkfckeoUVZLKCSNEC8812-50-71 09:24:00 Test Item Value Reference Range Interpretation Comments Eosinophils # (test code 0.0 See_Comment [A utomated message] The = Eosinophils #) system whic h generated this result tra nsmitted reference range : <=0.5. The reference r katie was not used to int erpret this result as normal/abnormal . [facility] HospitalAjavqizZHVPVSFWNB7967-17-60 09:24:00 Test Item Value Reference Range Interpretation Comments Lymphocytes # (test code = Lymphocytes 1.3 1.0-5.5 #) [facility] HospitalTkuwufzDLFUOUKDJO9060-87-86 09:24:00 Test Item Value Reference Range Interpretation Comments Segs-Bands # (test code = Segs-Bands #) 6.7 1.5-8.1 [facility] HospitalNwylfpsXNCXDEIBIU7559-07-02 09:24:00 Test Item Value Reference Range Interpretation Comments Monocytes # (test code 0.5 See_Comment [Aut omated message] The = Monocytes #) system which generated this result tra nsmitted reference range : <=0.8. The reference r katie was not used to int erpret this result as normal/abnormal . [facility] HospitalHglpaqyGQGEVFOVOF8857-32-64 09:24:00 Test Item Value Reference Range Interpretation Comments Eosinophils (test code = 0.2 See_Comment [A utomated message] The Eosinophils) system which ge nerated this result tra nsmitted reference range : <=4.0. The reference r katie was not used to int erpret this result as normal/abnormal . [facility] HospitalSzifndsZVIVBHDXPK9793-87-22 09:24:00 Test Item Value Reference Range Interpretation Comments Monocytes (test code = Monocytes) 6.4 2.0-12.0 [facility] HospitalLqjxzlkLFJYWAKFOA3796-03-89 09:24:00 Test Item Value Reference Range Interpretation Comments Basophils (test code = 0.2 See_Comment [Aut omated message] The Basophils) system which ge nerated this result tra nsmitted reference range : <=1.0. The reference r katie was not used to int erpret this result as normal/abnormal . [facility] HospitalBgrtopaFBRVCCPMIQ8050-74-84 09:24:00 Test Item Value Reference Range Interpretation Comments Segs (test code = Segs) 77.6 45.0-75.0 [facility] HospitalWjvyydjNDSKVOQIRQ7992-58-25 09:24:00 Test Item Value Reference Range Interpretation Comments Lymphocytes (test code = Lymphocytes) 15.6 20.0-40.0 [facility] [id number] 09:24:00 Test Item Value Reference Range Interpretation Comments Phosphorus (test code = Phosphorus) 2.5 2.5-4.5 [facility] [id number] 09:24:00 Test Item Value Reference Range Interpretation Comments Magnesium Lvl (test code = Magnesium 1.4 1.8-2.4 Lvl) [facility] HospitalPefmszvSXDDQOGFKSIS2587-75-33 09:24:00 Test Item Value Reference Range Interpretation Comments AGAP (test code = AGAP) 10.1 10.0-20.0 [facility] HospitalQqdcaciLUHJRPVSYPFY8339-55-84 09:24:00 Test Item Value Reference Range Interpretation Comments BUN (test code = BUN) 12 7-22 [facility] HospitalTwlcrdpQCEEJGYFHBPL1168-12-34 09:24:00 Test Item Value Reference Range Interpretation Comments Glucose Lvl (test code = Glucose Lvl) 103 70-99 [facility] HospitalFzvrslmAIVQPDTRUHFD0123-43-11 09:24:00 Test Item Value Reference Range Interpretation Comments Sodium Lvl (test code = Sodium Lvl) 138 135-145 [facility] HospitalPianuxxMJWPPCXKEQWF6428-96-39 09:24:00 Test Item Value Reference Range Interpretation Comments Creatinine Lvl (test code = Creatinine 1.1 0.5-1.4 Lvl) [facility] HospitalErenpsmKMYTRHKPEDQR1286-53-48 09:24:00 Test Item Value Reference Range Interpretation Comments Chloride Lvl (test code = Chloride Lvl) 107 95-109 [facility] HospitalLpmetvbCJZPTFPZRTZD0975-94-66 09:24:00 Test Item Value Reference Range Interpretation Comments Potassium Lvl (test code = Potassium 4.1 3.5-5.1 Lvl) [facility] HospitalDtxincjEPFDHNYMYBNK0667-84-57 09:24:00 Test Item Value Reference Range Interpretation Comments CO2 (test code = CO2) 25 24-32 [facility] HospitalKeotnpgZVBPEUDZHCJL7889-07-59 09:24:00 Test Item Value Reference Range Interpretation Comments Calcium Lvl (test code = Calcium Lvl) 8.3 8.5-10.5 [facility] HospitalOsrfvrsWIXBUICIQLQX0782-55-16 09:24:00 Test Item Value Reference Range Interpretation Comments eGFR (test code = eGFR) 54 [facility] HospitalZzipkidDRPHWSNWAC7398-74-46 09:24:00 Test Item Value Reference Range Interpretation Comments INR (test code = INR) 1.24 0.85-1.17 [facility] HospitalGburnlkZAMQBJBCPG2055-67-41 09:24:00 Test Item Value Reference Range Interpretation Comments PT (test code = PT) 15.5 s 12.0-14.7 [facility] HospitalWcdtyegDXZXIHSXPS5254-30-76 09:24:00 Test Item Value Reference Range Interpretation Comments PTT (test code = PTT) 31.2 s 22.9-35.8 [facility] HospitalZxzohqgRSHKHAWFEX6755-79-79 09:24:00 Test Item Value Reference Range Interpretation Comments MPV (test code = MPV) 7.0 7.4-10.4 [facility] HospitalSqowhvjNIFNDUCPYP0657-75-15 09:24:00 Test Item Value Reference Range Interpretation Comments RDW (test code = RDW) 19.0 11.5-14.5 [facility] HospitalXvaqlpgYGZMIKLZPA4886-41-89 09:24:00 Test Item Value Reference Range Interpretation Comments MCH (test code = MCH) 31.0 pg 27.0-31.0 [facility] HospitalXxukntyDUNAYNUXBS0517-14-03 09:24:00 Test Item Value Reference Range Interpretation Comments MCHC (test code = MCHC) 34.2 32.0-36.0 [facility] HospitalMtqoayzTUDCHHKGDS4993-13-66 09:24:00 Test Item Value Reference Range Interpretation Comments WBC (test code = WBC) 8.6 3.7-10.4 [facility] HospitalZfvgmcqIIJDYDJGRB5317-97-30 09:24:00 Test Item Value Reference Range Interpretation Comments Platelet (test code = Platelet) 116 133-450 [facility] HospitalOliricdSVBZDWXTHG7050-68-05 09:24:00 Test Item Value Reference Range Interpretation Comments Hgb (test code = Hgb) 10.3 12.0-16.0 [facility] HospitalYoievhfXRCNSKMXZX4469-49-92 09:24:00 Test Item Value Reference Range Interpretation Comments RBC (test code = RBC) 3.34 4.20-5.40 [facility] HospitalMxlyfliCERRXJBVRX0376-55-80 09:24:00 Test Item Value Reference Range Interpretation Comments Hct (test code = Hct) 30.2 36.0-48.0 [facility] HospitalAxtbjebGOAYERSBRF1625-43-73 09:24:00 Test Item Value Reference Range Interpretation Comments MCV (test code = MCV) 90.6 81.0-99.0 [facility] HospitalHhmnaozFKJZBSJJTN4473-24-49 09:24:00 Test Item Value Reference Range Interpretation Comments Basophils # (test code 0.0 See_Comment [Aut omated message] The = Basophils #) system which generated this result tra nsmitted reference range : <=0.2. The reference r katie was not used to int erpret this result as normal/abnormal . [facility] HospitalCvjtnkhVHBEMAVQBC1929-25-14 09:24:00 Test Item Value Reference Range Interpretation Comments Eosinophils # (test code 0.0 See_Comment [A utomated message] The = Eosinophils #) system whic h generated this result tra nsmitted reference range : <=0.5. The reference r katie was not used to int erpret this result as normal/abnormal . [facility] HospitalKvtmhdqADWRNEVHQX1912-74-48 09:24:00 Test Item Value Reference Range Interpretation Comments Lymphocytes # (test code = Lymphocytes 1.3 1.0-5.5 #) [facility] HospitalOikvijyQMVFEANWEL6572-30-80 09:24:00 Test Item Value Reference Range Interpretation Comments Segs-Bands # (test code = Segs-Bands #) 6.7 1.5-8.1 [facility] HospitalCucgvxgUVXFMJSKBM1992-16-88 09:24:00 Test Item Value Reference Range Interpretation Comments Monocytes # (test code 0.5 See_Comment [Aut omated message] The = Monocytes #) system which generated this result tra nsmitted reference range : <=0.8. The reference r katie was not used to int erpret this result as normal/abnormal . [facility] HospitalFbkndzfEBLZHBCEVZ1761-43-21 09:24:00 Test Item Value Reference Range Interpretation Comments Eosinophils (test code = 0.2 See_Comment [A utomated message] The Eosinophils) system which ge nerated this result tra nsmitted reference range : <=4.0. The reference r katie was not used to int erpret this result as normal/abnormal . [facility] HospitalDlxiyigRGQUKXYNTH7545-82-59 09:24:00 Test Item Value Reference Range Interpretation Comments Monocytes (test code = Monocytes) 6.4 2.0-12.0 [facility] HospitalHvcsdroQKZEOLCJXN2141-84-74 09:24:00 Test Item Value Reference Range Interpretation Comments Basophils (test code = 0.2 See_Comment [Aut omated message] The Basophils) system which ge nerated this result tra nsmitted reference range : <=1.0. The reference r katie was not used to int erpret this result as normal/abnormal . [facility] HospitalFpzdthgAQUJPTTHYT8648-20-59 09:24:00 Test Item Value Reference Range Interpretation Comments Segs (test code = Segs) 77.6 45.0-75.0 [facility] HospitalDgopfgoSPWIZPUYYL0699-92-49 09:24:00 Test Item Value Reference Range Interpretation Comments Lymphocytes (test code = Lymphocytes) 15.6 20.0-40.0 [facility] [id number] 09:24:00 Test Item Value Reference Range Interpretation Comments Phosphorus (test code = Phosphorus) 2.5 2.5-4.5 [facility] [id number] 09:24:00 Test Item Value Reference Range Interpretation Comments Magnesium Lvl (test code = Magnesium 1.4 1.8-2.4 Lvl) [facility] HospitalRiypkxjGFHVAQFWSIBT0609-29-23 09:24:00 Test Item Value Reference Range Interpretation Comments AGAP (test code = AGAP) 10.1 10.0-20.0 [facility]fq[id number] 09:24:00 Test Item Value Reference Range Interpretation Comments BUN (test code = BUN) 12 7-22 [facility]ZwzdwbbPICXQYHTOVVB3624-62-68 09:24:00 Test Item Value Reference Range Interpretation Comments Glucose Lvl (test code = Glucose Lvl) 103 70-99 [facility] HospitalMluogxrCYNODUVCRYNX5160-65-45 09:24:00 Test Item Value Reference Range Interpretation Comments Sodium Lvl (test code = Sodium Lvl) 138 135-145 [facility] HospitalPmgtljrZJJUHFYOPNXM6206-26-02 09:24:00 Test Item Value Reference Range Interpretation Comments Creatinine Lvl (test code = Creatinine 1.1 0.5-1.4 Lvl) [facility] HospitalLlejrzlMGHEWKGSVCVI2547-88-03 09:24:00 Test Item Value Reference Range Interpretation Comments Chloride Lvl (test code = Chloride Lvl) 107 95-109 [facility] HospitalObshbchRFDGXKRWUQZR4878-94-43 09:24:00 Test Item Value Reference Range Interpretation Comments Potassium Lvl (test code = Potassium 4.1 3.5-5.1 Lvl) [facility] HospitalMxdvuflVRZEOBFWXLGD3454-49-58 09:24:00 Test Item Value Reference Range Interpretation Comments CO2 (test code = CO2) 25 24-32 [facility] HospitalTpthxayEOWZFVNDOPGP1987-26-43 09:24:00 Test Item Value Reference Range Interpretation Comments Calcium Lvl (test code = Calcium Lvl) 8.3 8.5-10.5 [facility] HospitalUnldpnqYOWYAQPODUUY8414-16-93 09:24:00 Test Item Value Reference Range Interpretation Comments eGFR (test code = eGFR) 54 [facility]LvsappzXSEEKJBAPA2562-33-89 09:24:00 Test Item Value Reference Range Interpretation Comments INR (test code = INR) 1.24 0.85-1.17 [facility] HospitalNghamaqCWQHUWXQAA1575-17-00 09:24:00 Test Item Value Reference Range Interpretation Comments PT (test code = PT) 15.5 s 12.0-14.7 [facility] HospitalQqmlcaeDBRKFEOQZK7157-46-86 09:24:00 Test Item Value Reference Range Interpretation Comments PTT (test code = PTT) 31.2 s 22.9-35.8 [facility] HospitalKiuymciSEZFQIMEAV0121-86-14 09:24:00 Test Item Value Reference Range Interpretation Comments MPV (test code = MPV) 7.0 7.4-10.4 [facility] HospitalQxlhbaaGYMWNVQMVM7883-48-12 09:24:00 Test Item Value Reference Range Interpretation Comments RDW (test code = RDW) 19.0 11.5-14.5 [facility] HospitalJegyxxfFMAXETOTXR7574-65-85 09:24:00 Test Item Value Reference Range Interpretation Comments MCH (test code = MCH) 31.0 pg 27.0-31.0 [facility] HospitalEfmdrwrXLDTJUMPJF6516-92-84 09:24:00 Test Item Value Reference Range Interpretation Comments MCHC (test code = MCHC) 34.2 32.0-36.0 [facility] HospitalJrkscdeJJGAMKBIKF2486-48-83 09:24:00 Test Item Value Reference Range Interpretation Comments WBC (test code = WBC) 8.6 3.7-10.4 [facility] HospitalEhgrzciDOAFNPACAK8468-92-27 09:24:00 Test Item Value Reference Range Interpretation Comments Platelet (test code = Platelet) 116 133-450 [facility] HospitalSlputanXXFQIKEGVJ4951-17-91 09:24:00 Test Item Value Reference Range Interpretation Comments Hgb (test code = Hgb) 10.3 12.0-16.0 [facility] HospitalRlshtxwITSQXXRUKZ1523-84-44 09:24:00 Test Item Value Reference Range Interpretation Comments RBC (test code = RBC) 3.34 4.20-5.40 [facility] HospitalKchermtRBSYNPDDUO7106-27-60 09:24:00 Test Item Value Reference Range Interpretation Comments Hct (test code = Hct) 30.2 36.0-48.0 [facility] HospitalZrtpxoeQTSPNNXZLP7795-64-59 09:24:00 Test Item Value Reference Range Interpretation Comments MCV (test code = MCV) 90.6 81.0-99.0 [facility] HospitalGesfwalJKGVGLUKKN9248-36-64 09:24:00 Test Item Value Reference Range Interpretation Comments Basophils # (test code 0.0 See_Comment [Aut omated message] The = Basophils #) system which generated this result tra nsmitted reference range : <=0.2. The reference r katie was not used to int erpret this result as normal/abnormal . [facility] HospitalCrwpgadBEDQAIEJNY7865-34-36 09:24:00 Test Item Value Reference Range Interpretation Comments Eosinophils # (test code 0.0 See_Comment [A utomated message] The = Eosinophils #) system whic h generated this result tra nsmitted reference range : <=0.5. The reference r katie was not used to int erpret this result as normal/abnormal . [facility] HospitalHijgbuyEFNEWPWJTL7758-32-53 09:24:00 Test Item Value Reference Range Interpretation Comments Lymphocytes # (test code = Lymphocytes 1.3 1.0-5.5 #) [facility] HospitalPdhbbseLQWNDITPQM5390-53-21 09:24:00 Test Item Value Reference Range Interpretation Comments Segs-Bands # (test code = Segs-Bands #) 6.7 1.5-8.1 [facility] HospitalIvloetgHLZZBMGLPZ2784-38-54 09:24:00 Test Item Value Reference Range Interpretation Comments Monocytes # (test code 0.5 See_Comment [Aut omated message] The = Monocytes #) system which generated this result tra nsmitted reference range : <=0.8. The reference r katie was not used to int erpret this result as normal/abnormal . [facility] HospitalMizazcwKSTYHOAEIU8971-92-23 09:24:00 Test Item Value Reference Range Interpretation Comments Eosinophils (test code = 0.2 See_Comment [A utomated message] The Eosinophils) system which ge nerated this result tra nsmitted reference range : <=4.0. The reference r katie was not used to int erpret this result as normal/abnormal . [facility] HospitalOrkelovXWYJBDMYAH0722-54-76 09:24:00 Test Item Value Reference Range Interpretation Comments Monocytes (test code = Monocytes) 6.4 2.0-12.0 [facility] HospitalFmsbllxWRLHMGTGEU6499-29-19 09:24:00 Test Item Value Reference Range Interpretation Comments Basophils (test code = 0.2 See_Comment [Aut omated message] The Basophils) system which ge nerated this result tra nsmitted reference range : <=1.0. The reference r katie was not used to int erpret this result as normal/abnormal . [facility] HospitalOyauekhCHPXSHKVSA0508-35-58 09:24:00 Test Item Value Reference Range Interpretation Comments Segs (test code = Segs) 77.6 45.0-75.0 [facility] HospitalZzaolivONSRXGLUCD4443-39-33 09:24:00 Test Item Value Reference Range Interpretation Comments Lymphocytes (test code = Lymphocytes) 15.6 20.0-40.0 [facility] KKXKKPY1915-68-32 21:53:00 Test Item Value Reference Range Interpretation Comments RBC product (test code Product available = RBC product) (02/06/14 4:53 PM) [facility]FUEL[facility] [id number] 21:53:00 Test Item Value Reference Range Interpretation Comments RBC product (test code Product available = RBC product) (02/06/14 4:53 PM) [facility] [id number] 21:53:00 Test Item Value Reference Range Interpretation Comments RBC product (test code Product available = RBC product) (02/06/14 4:53 PM) [facility] [id number] 21:53:00 Test Item Value Reference Range Interpretation Comments RBC product (test code Product available = RBC product) (02/06/14 4:53 PM) [facility] [id number] 21:53:00 Test Item Value Reference Range Interpretation Comments RBC product (test code Product available = RBC product) (02/06/14 4:53 PM) [facility] [id number] 21:53:00 Test Item Value Reference Range Interpretation Comments RBC product (test code Product available = RBC product) (02/06/14 4:53 PM) [facility] [id number] 18:45:23 Test Item Value Reference Range Interpretation Comments MRSA by PCR (test Negative 15(02/06/14 1:45 code = MRSA by PCR) PM) [facility] [id number] 18:45:23 Test Item Value Reference Range Interpretation Comments MRSA by PCR (test Negative 15(02/06/14 1:45 code = MRSA by PCR) PM) [facility] [id number] 18:45:23 Test Item Value Reference Range Interpretation Comments MRSA by PCR (test Negative 15(02/06/14 1:45 code = MRSA by PCR) PM) [facility] [id number] 18:45:23 Test Item Value Reference Range Interpretation Comments MRSA by PCR (test Negative 15(02/06/14 1:45 code = MRSA by PCR) PM) [facility] [id number] 18:45:23 Test Item Value Reference Range Interpretation Comments MRSA by PCR (test Negative 15(02/06/14 1:45 code = MRSA by PCR) PM) [facility] [id number] 18:45:23 Test Item Value Reference Range Interpretation Comments MRSA by PCR (test Negative 15(02/06/14 1:45 code = MRSA by PCR) PM) [facility] HospitalXqhfudrBCQWSWZGLG2052-96-61 18:45:00 Test Item Value Reference Range Interpretation Comments INR (test code = INR) 1.60 0.85-1.17 [facility] HospitalQdlpwgrJOJCQVCSOW9919-29-81 18:45:00 Test Item Value Reference Range Interpretation Comments PT (test code = PT) 18.8 s 12.0-14.7 [facility] HospitalJvwuljrJUTGVWYCQH0427-67-72 18:45:00 Test Item Value Reference Range Interpretation Comments PTT (test code = PTT) 31.1 s 22.9-35.8 [facility] HospitalUmjysbqJKHGIXVKYX0837-41-95 18:45:00 Test Item Value Reference Range Interpretation Comments INR (test code = INR) 1.60 0.85-1.17 [facility] HospitalGcjivpgCNJLDIAFZS4595-19-99 18:45:00 Test Item Value Reference Range Interpretation Comments PT (test code = PT) 18.8 s 12.0-14.7 [facility] HospitalOpzhwxrGXHRHYUVUT6453-53-70 18:45:00 Test Item Value Reference Range Interpretation Comments PTT (test code = PTT) 31.1 s 22.9-35.8 [facility] HospitalFgedoveHUXJNHXUXI0009-33-37 18:45:00 Test Item Value Reference Range Interpretation Comments INR (test code = INR) 1.60 0.85-1.17 [facility] HospitalNlmbzwcWYUPFBNRRQ2761-86-99 18:45:00 Test Item Value Reference Range Interpretation Comments PT (test code = PT) 18.8 s 12.0-14.7 [facility] HospitalVffehfxSDEHVPGXPA9624-84-33 18:45:00 Test Item Value Reference Range Interpretation Comments PTT (test code = PTT) 31.1 s 22.9-35.8 [facility] HospitalZkphjynMRFXTYPAVC4935-43-16 18:45:00 Test Item Value Reference Range Interpretation Comments INR (test code = INR) 1.60 0.85-1.17 [facility] HospitalOkwydzsVUKKMBEERY1191-51-20 18:45:00 Test Item Value Reference Range Interpretation Comments PT (test code = PT) 18.8 s 12.0-14.7 [facility] HospitalKvrancbMYLBNKPKFH5146-34-95 18:45:00 Test Item Value Reference Range Interpretation Comments PTT (test code = PTT) 31.1 s 22.9-35.8 [facility] HospitalEqxhiooAEKAGZLJMC2212-42-13 18:45:00 Test Item Value Reference Range Interpretation Comments INR (test code = INR) 1.60 0.85-1.17 [facility] HospitalDvilfmsPGRPKXGMFJ9184-73-21 18:45:00 Test Item Value Reference Range Interpretation Comments PT (test code = PT) 18.8 s 12.0-14.7 [facility] CenterSnafuyvSQMGFADQBJ3313-23-08 18:45:00 Test Item Value Reference Range Interpretation Comments PTT (test code = PTT) 31.1 s 22.9-35.8 [facility] HospitalUpyjfhxNTHPFEXYXT7621-48-73 18:45:00 Test Item Value Reference Range Interpretation Comments INR (test code = INR) 1.60 0.85-1.17 [facility] CenterUgilpwsBMWPFCHDXF9353-72-20 18:45:00 Test Item Value Reference Range Interpretation Comments PT (test code = PT) 18.8 s 12.0-14.7 [facility] HospitalFyzhjiuAFZCZICFXG2248-32-96 18:45:00 Test Item Value Reference Range Interpretation Comments PTT (test code = PTT) 31.1 s 22.9-35.8 [facility] [id number] 12:15:00 Test Item Value Reference Range Interpretation Comments Antibody Scrn (test Negative (02/06/14 7:15 code = Antibody Scrn) AM) [facility] HospitalBringMeThatHalton [id number] 12:15:00 Test Item Value Reference Range Interpretation Comments ABO/Rh (test code = ABO/Rh) A POS [facility] [employer] [id number] 12:15:00 Test Item Value Reference Range Interpretation Comments RBC product (test code Product available = RBC product) (02/06/14 7:15 AM) [facility]wiMAN [id number] 12:15:00 Test Item Value Reference Range Interpretation Comments Antibody Scrn (test Negative (02/06/14 7:15 code = Antibody Scrn) AM) [facility]wi[facility] [id number] 12:15:00 Test Item Value Reference Range Interpretation Comments ABO/Rh (test code = ABO/Rh) A POS [facility] [employer] [id number] 12:15:00 Test Item Value Reference Range Interpretation Comments RBC product (test code Product available = RBC product) (02/06/14 7:15 AM) [facility] [employer] [id number] 12:15:00 Test Item Value Reference Range Interpretation Comments Antibody Scrn (test Negative (02/06/14 7:15 code = Antibody Scrn) AM) [facility] [id number] 12:15:00 Test Item Value Reference Range Interpretation Comments ABO/Rh (test code = ABO/Rh) A POS [facility] BANK [id number] 12:15:00 Test Item Value Reference Range Interpretation Comments RBC product (test code Product available = RBC product) (02/06/14 7:15 AM) [facility] BANK [id number] 12:15:00 Test Item Value Reference Range Interpretation Comments Antibody Scrn (test Negative (02/06/14 7:15 code = Antibody Scrn) AM) [facility] BANK [id number] 12:15:00 Test Item Value Reference Range Interpretation Comments ABO/Rh (test code = ABO/Rh) A POS [facility] BANK [id number] 12:15:00 Test Item Value Reference Range Interpretation Comments RBC product (test code Product available = RBC product) (02/06/14 7:15 AM) [facility] BANK [id number] 12:15:00 Test Item Value Reference Range Interpretation Comments Antibody Scrn (test Negative (02/06/14 7:15 code = Antibody Scrn) AM) [facility] BANK [id number] 12:15:00 Test Item Value Reference Range Interpretation Comments ABO/Rh (test code = ABO/Rh) A [facility] [id number] 12:15:00 Test Item Value Reference Range Interpretation Comments RBC product (test code Product available = RBC product) (02/06/14 7:15 AM) [facility] BANK [id number] 12:15:00 Test Item Value Reference Range Interpretation Comments Antibody Scrn (test Negative (02/06/14 7:15 code = Antibody Scrn) AM) [facility] BANK [id number] 12:15:00 Test Item Value Reference Range Interpretation Comments ABO/Rh (test code = ABO/Rh) A [facility] [id number] 12:15:00 Test Item Value Reference Range Interpretation Comments RBC product (test code Product available = RBC product) (02/06/14 7:15 AM) [facility] CenterUcpbrsjHKJMPMLMXA4038-97-02 15:23:34 Test Item Value Reference Range Interpretation Comments Plav Effect Plt (test code = Plav 98 Effect Plt) [facility] HospitalKklisblWNQWKQCTLR0617-40-12 15:23:34 Test Item Value Reference Range Interpretation Comments Plav Effect Plt (test code = Plav 98 Effect Plt) [facility] HospitalAfrodamMFBYVOXYCK9698-44-78 15:23:34 Test Item Value Reference Range Interpretation Comments Plav Effect Plt (test code = Plav 98 Effect Plt) [facility] Ho[id number] 15:23:34 Test Item Value Reference Range Interpretation Comments Plav Effect Plt (test code = Plav 98 Effect Plt) [facility] HospitalEihjzalOWJLYOQSWK3087-85-26 15:23:34 Test Item Value Reference Range Interpretation Comments Plav Effect Plt (test code = Plav 98 Effect Plt) [facility] HospitalLjhiudjIHJCSXQETD0654-79-71 15:23:34 Test Item Value Reference Range Interpretation Comments Plav Effect Plt (test code = Plav 98 Effect Plt) [facility] [id number] 15:23:00 Test Item Value Reference Range Interpretation Comments ABO/Rh (test code = ABO/Rh) [facility] [id number] 15:23:00 Test Item Value Reference Range Interpretation Comments Antibody Scrn (test Negative (02/01/14 10:23 code = Antibody Scrn) AM) [facility] [id number] 15:23:00 Test Item Value Reference Range Interpretation Comments ABO/Rh (test code = ABO/Rh) [facility] [id number] 15:23:00 Test Item Value Reference Range Interpretation Comments Antibody Scrn (test Negative (02/01/14 10:23 code = Antibody Scrn) AM) [facility] [id number] 15:23:00 Test Item Value Reference Range Interpretation Comments ABO/Rh (test code = ABO/Rh) A [facility] [id number] 15:23:00 Test Item Value Reference Range Interpretation Comments Antibody Scrn (test Negative (02/01/14 10:23 code = Antibody Scrn) AM) [facility] [id number] 15:23:00 Test Item Value Reference Range Interpretation Comments ABO/Rh (test code = ABO/Rh) A POS [facility] [id number] 15:23:00 Test Item Value Reference Range Interpretation Comments Antibody Scrn (test Negative (02/01/14 10:23 code = Antibody Scrn) AM) [facility] [id number] 15:23:00 Test Item Value Reference Range Interpretation Comments ABO/Rh (test code = ABO/Rh) A POS [facility] [id number] 15:23:00 Test Item Value Reference Range Interpretation Comments Antibody Scrn (test Negative (02/01/14 10:23 code = Antibody Scrn) AM) [facility] [id number] 15:23:00 Test Item Value Reference Range Interpretation Comments ABO/Rh (test code = ABO/Rh) A POS [facility] [id number] 15:23:00 Test Item Value Reference Range Interpretation Comments Antibody Scrn (test Negative (02/01/14 10:23 code = Antibody Scrn) AM) [facility] [id number] 15:03:00 Test Item Value Reference Range Interpretation Comments RBC product (test code Product available = RBC product) (02/01/14 10:03 AM) [facility] [id number] 15:03:00 Test Item Value Reference Range Interpretation Comments RBC product (test code Product available = RBC product) (02/01/14 10:03 AM) [facility] [id number] 15:03:00 Test Item Value Reference Range Interpretation Comments RBC product (test code Product available = RBC product) (02/01/14 10:03 AM) [facility] [id number] 15:03:00 Test Item Value Reference Range Interpretation Comments RBC product (test code Product available = RBC product) (02/01/14 10:03 AM) [facility] [id number] 15:03:00 Test Item Value Reference Range Interpretation Comments RBC product (test code Product available = RBC product) (02/01/14 10:03 AM) [facility] [id number] 15:03:00 Test Item Value Reference Range Interpretation Comments RBC product (test code Product available = RBC product) (02/01/14 10:03 AM) [facility]2014-06-16 19:37:00 Test Item Value Reference Range Interpretation Comments eGFR (test code = eGFR) 54 [facility]2014-06-16 19:37:00 Test Item Value Reference Range Interpretation Comments POC Creatinine (test code = POC 1.1 0.5-1.4 Creatinine) [facility]2014-06-16 19:37:00 Test Item Value Reference Range Interpretation Comments eGFR (test code = eGFR) 54 [facility]2014-06-16 19:37:00 Test Item Value Reference Range Interpretation Comments POC Creatinine (test code = POC 1.1 0.5-1.4 Creatinine) [facility]2014-06-16 19:37:00 Test Item Value Reference Range Interpretation Comments eGFR (test code = eGFR) 54 [facility]2014-06-16 19:37:00 Test Item Value Reference Range Interpretation Comments POC Creatinine (test code = POC 1.1 0.5-1.4 Creatinine) [facility]2014-06-16 19:37:00 Test Item Value Reference Range Interpretation Comments eGFR (test code = eGFR) 54 [facility]2014-06-16 19:37:00 Test Item Value Reference Range Interpretation Comments POC Creatinine (test code = POC 1.1 0.5-1.4 Creatinine) [facility]2014-06-16 19:37:00 Test Item Value Reference Range Interpretation Comments eGFR (test code = eGFR) 54 [facility]2014-06-16 19:37:00 Test Item Value Reference Range Interpretation Comments POC Creatinine (test code = POC 1.1 0.5-1.4 Creatinine) [facility]2014-06-16 19:37:00 Test Item Value Reference Range Interpretation Comments eGFR (test code = eGFR) 54 [facility]2014-06-16 19:37:00 Test Item Value Reference Range Interpretation Comments POC Creatinine (test code = POC 1.1 0.5-1.4 Creatinine) [facility] GLUCOSE [id number] 16:57:00 Test Item Value Reference Range Interpretation Comments Gluc POC Lifscn (test code = Gluc POC 193 70-99 H Lifscn) [facility] GLUCOSE [id number] 16:57:00 Test Item Value Reference Range Interpretation Comments Comment1 (test code = Comment1) Notify RN/ [facility] GLUCOSE [id number] 16:57:00 Test Item Value Reference Range Interpretation Comments Gluc POC Lifscn (test code = Gluc POC 193 70-99 H Lifscn) [facility] GLUCOSE [id number] 16:57:00 Test Item Value Reference Range Interpretation Comments Comment1 (test code = Comment1) Notify RN/ [facility] GLUCOSE [id number] 16:57:00 Test Item Value Reference Range Interpretation Comments Gluc POC Lifscn (test code = Gluc POC 193 70-99 H Lifscn) [facility] GLUCOSE [id number] 16:57:00 Test Item Value Reference Range Interpretation Comments Comment1 (test code = Comment1) Notify RN/ [facility] GLUCOSE [id number] 16:57:00 Test Item Value Reference Range Interpretation Comments Gluc POC Lifscn (test code = Gluc POC 193 70-99 H Lifscn) [facility] GLUCOSE [id number] 16:57:00 Test Item Value Reference Range Interpretation Comments Comment1 (test code = Comment1) Notify RN/ [facility] GLUCOSE [id number] 16:57:00 Test Item Value Reference Range Interpretation Comments Gluc POC Lifscn (test code = Gluc POC 193 70-99 H Lifscn) [facility] GLUCOSE [id number] 16:57:00 Test Item Value Reference Range Interpretation Comments Comment1 (test code = Comment1) Notify RN/ [facility] GLUCOSE [id number] 16:57:00 Test Item Value Reference Range Interpretation Comments Gluc POC Lifscn (test code = Gluc POC 193 70-99 H Lifscn) [facility] GLUCOSE [id number] 16:57:00 Test Item Value Reference Range Interpretation Comments Comment1 (test code = Comment1) Notify RN/ [facility] GLUCOSE [id number] 12:14:00 Test Item Value Reference Range Interpretation Comments Gluc POC Lifscn (test code = Gluc POC 138 70-99 H Lifscn) [facility] GLUCOSE [id number] 12:14:00 Test Item Value Reference Range Interpretation Comments Comment1 (test code = Comment1) Notify RN/ [facility] GLUCOSE [id number] 12:14:00 Test Item Value Reference Range Interpretation Comments Gluc POC Lifscn (test code = Gluc POC 138 70-99 H Lifscn) [facility] GLUCOSE [id number] 12:14:00 Test Item Value Reference Range Interpretation Comments Comment1 (test code = Comment1) Notify RN/ [facility] GLUCOSE [id number] 12:14:00 Test Item Value Reference Range Interpretation Comments Gluc POC Lifscn (test code = Gluc POC 138 70-99 H Lifscn) [facility] GLUCOSE [id number] 12:14:00 Test Item Value Reference Range Interpretation Comments Comment1 (test code = Comment1) Notify RN/ [facility] GLUCOSE [id number] 12:14:00 Test Item Value Reference Range Interpretation Comments Gluc POC Lifscn (test code = Gluc POC 138 70-99 H Lifscn) [facility] GLUCOSE [id number] 12:14:00 Test Item Value Reference Range Interpretation Comments Comment1 (test code = Comment1) Notify RN/ [facility] GLUCOSE [id number] 12:14:00 Test Item Value Reference Range Interpretation Comments Gluc POC Lifscn (test code = Gluc POC 138 70-99 H Lifscn) [facility] GLUCOSE [id number] 12:14:00 Test Item Value Reference Range Interpretation Comments Comment1 (test code = Comment1) Notify RN/ [facility] GLUCOSE [id number] 12:14:00 Test Item Value Reference Range Interpretation Comments Gluc POC Lifscn (test code = Gluc POC 138 70-99 H Lifscn) [facility] GLUCOSE [id number] 12:14:00 Test Item Value Reference Range Interpretation Comments Comment1 (test code = Comment1) Notify RN/ [facility] GLUCOSE [id number] 01:24:00 Test Item Value Reference Range Interpretation Comments Comment1 (test code = Comment1) Notify RN/ [facility] GLUCOSE [id number] 01:24:00 Test Item Value Reference Range Interpretation Comments Gluc POC Lifscn (test code = Gluc POC 182 70-99 H Lifscn) [facility] GLUCOSE [id number] 01:24:00 Test Item Value Reference Range Interpretation Comments Comment2 (test code = Assess Patient Comment2) [facility] GLUCOSE [id number] 01:24:00 Test Item Value Reference Range Interpretation Comments Comment1 (test code = Comment1) Notify RN/ [facility] GLUCOSE [id number] 01:24:00 Test Item Value Reference Range Interpretation Comments Gluc POC Lifscn (test code = Gluc POC 182 70-99 H Lifscn) [facility] GLUCOSE [id number] 01:24:00 Test Item Value Reference Range Interpretation Comments Comment2 (test code = Assess Patient Comment2) [facility] GLUCOSE [id number] 01:24:00 Test Item Value Reference Range Interpretation Comments Comment1 (test code = Comment1) Notify RN/ [facility] GLUCOSE [id number] 01:24:00 Test Item Value Reference Range Interpretation Comments Gluc POC Lifscn (test code = Gluc POC 182 70-99 H Lifscn) [facility] GLUCOSE [id number] 01:24:00 Test Item Value Reference Range Interpretation Comments Comment2 (test code = Assess Patient Comment2) [facility] GLUCOSE [id number] 01:24:00 Test Item Value Reference Range Interpretation Comments Comment1 (test code = Comment1) Notify RN/ [facility] GLUCOSE [id number] 01:24:00 Test Item Value Reference Range Interpretation Comments Gluc POC Lifscn (test code = Gluc POC 182 70-99 H Lifscn) [facility] GLUCOSE [id number] 01:24:00 Test Item Value Reference Range Interpretation Comments Comment2 (test code = Assess Patient Comment2) [facility] GLUCOSE [id number] 01:24:00 Test Item Value Reference Range Interpretation Comments Comment1 (test code = Comment1) Notify RN/ [facility] GLUCOSE [id number] 01:24:00 Test Item Value Reference Range Interpretation Comments Gluc POC Lifscn (test code = Gluc POC 182 70-99 H Lifscn) [facility] GLUCOSE [id number] 01:24:00 Test Item Value Reference Range Interpretation Comments Comment2 (test code = Assess Patient Comment2) [facility] GLUCOSE [id number] 01:24:00 Test Item Value Reference Range Interpretation Comments Comment1 (test code = Comment1) Notify RN/MD [facility] GLUCOSE [id number] 01:24:00 Test Item Value Reference Range Interpretation Comments Gluc POC Lifscn (test code = Gluc POC 182 70-99 H Lifscn) [facility] GLUCOSE [id number] 01:24:00 Test Item Value Reference Range Interpretation Comments Comment2 (test code = Assess Patient Comment2) [facility]xlw[facility]WKOUQHGE5262-88-60 10:40:00 Test Item Value Reference Range Interpretation Comments Trig (test code = Trig) 255 H [facility] HospitalXdwhxsxQADYWSQRI3178-43-02 10:40:00 Test Item Value Reference Range Interpretation Comments HDL (test code = HDL) 39 L [facility] HospitalQtquofzAMIFIUWBN8607-86-83 10:40:00 Test Item Value Reference Range Interpretation Comments CHD Risk (test code = CHD Risk) 4.38 3.90-5.80 N [facility] HospitalIjwvavuBCQOKAGQY6135-98-90 10:40:00 Test Item Value Reference Range Interpretation Comments Chol (test code = Chol) 171 N [facility] HospitalBvnmpdxZGZZTWGSW5918-61-75 10:40:00 Test Item Value Reference Range Interpretation Comments LDL (test code = LDL) [facility] [address] [facility]ThormvqBBVTFLEFF7672-48-35 10:40:00 Test Item Value Reference Range Interpretation Comments Trig (test code = Trig) 255 H [facility] HospitalRkqcrciNBUZXNZFT8795-18-19 10:40:00 Test Item Value Reference Range Interpretation Comments HDL (test code = HDL) 39 L [facility] HospitalIhbhberWILJQKFKH2315-62-46 10:40:00 Test Item Value Reference Range Interpretation Comments CHD Risk (test code = CHD Risk) 4.38 3.90-5.80 N [facility] HospitalWgifhwrPMPZBHBVO4022-60-64 10:40:00 Test Item Value Reference Range Interpretation Comments Chol (test code = Chol) 171 N [facility] HospitalDhrjvzfFZCBUWTET4648-93-81 10:40:00 Test Item Value Reference Range Interpretation Comments LDL (test code = LDL) 81 N [facility] HospitalIorcrlrHMHFXNRSB3704-76-19 10:40:00 Test Item Value Reference Range Interpretation Comments Trig (test code = Trig) 255 H [facility] HospitalAnvbdarAUVGMLQIN4546-28-09 10:40:00 Test Item Value Reference Range Interpretation Comments HDL (test code = HDL) 39 L [facility] HospitalNvzmnkgKSZBJNDQN7684-12-71 10:40:00 Test Item Value Reference Range Interpretation Comments CHD Risk (test code = CHD Risk) 4.38 3.90-5.80 N [facility] HospitalBvywrxsIWBXPAVBI5119-95-25 10:40:00 Test Item Value Reference Range Interpretation Comments Chol (test code = Chol) 171 [address] [facility] HospitalJggigogDZUOHLFXL6342-58-07 10:40:00 Test Item Value Reference Range Interpretation Comments LDL (test code = LDL) 81 N [facility] HospitalSnaqxpaNBQHBJTTP2382-93-62 10:40:00 Test Item Value Reference Range Interpretation Comments Trig (test code = Trig) 255 H [facility] HospitalKoiysyoTUCHVUBZV3537-84-37 10:40:00 Test Item Value Reference Range Interpretation Comments HDL (test code = HDL) 39 L [facility] HospitalPfvxuzaSMYOIDNGS8272-84-86 10:40:00 Test Item Value Reference Range Interpretation Comments CHD Risk (test code = CHD Risk) 4.38 3.90-5.80 N [facility] HospitalKgsudswYICXSYOQU5152-30-87 10:40:00 Test Item Value Reference Range Interpretation Comments Chol (test code = Chol) 171 [address] [facility] HospitalAczyxroZFDMXOFMV2761-97-82 10:40:00 Test Item Value Reference Range Interpretation Comments LDL (test code = LDL) 81 N [facility] HospitalOwqqgzrOHKWIXMQO4662-33-08 10:40:00 Test Item Value Reference Range Interpretation Comments Trig (test code = Trig) 255 H [facility] HospitalMvbqxkrOBOQTMHUP2692-29-36 10:40:00 Test Item Value Reference Range Interpretation Comments HDL (test code = HDL) 39 L [facility] HospitalWewnscjMBYJOQOSD4533-62-96 10:40:00 Test Item Value Reference Range Interpretation Comments CHD Risk (test code = CHD Risk) 4.38 3.90-5.80 N [facility] HospitalPprlrabDCABIQYYB7800-43-40 10:40:00 Test Item Value Reference Range Interpretation Comments Chol (test code = Chol) [address] [facility]FkncspbFPRFVNUQB9243-47-33 10:40:00 Test Item Value Reference Range Interpretation Comments LDL (test code = LDL) [address] [facility] HospitalMpqqbwoRMMTDLQGG3368-21-56 10:40:00 Test Item Value Reference Range Interpretation Comments Trig (test code = Trig) [address] [facility] HospitalQukboxbWRUUWMGVZ7136-13-38 10:40:00 Test Item Value Reference Range Interpretation Comments HDL (test code = HDL) 39 L [facility] HospitalIhghonjDKMQPVIXB8526-84-79 10:40:00 Test Item Value Reference Range Interpretation Comments CHD Risk (test code = CHD Risk) 4.38 3.90-5.80 N [facility] HospitalGwaczmiECZWSYPGQ5782-21-14 10:40:00 Test Item Value Reference Range Interpretation Comments Chol (test code = Chol) 171 [address] [facility] HospitalXnjyrhpLUYANQFFK5093-35-98 10:40:00 Test Item Value Reference Range Interpretation Comments LDL (test code = LDL) 81 [address] [facility] GLUCOSE LCFCXHN4515-62-20 01:51:00 Test Item Value Reference Range Interpretation Comments Comment2 (test code = Assess Patient Comment2) [facility] GLUCOSE [id number] 01:51:00 Test Item Value Reference Range Interpretation Comments Comment2 (test code = Assess Patient Comment2) [facility] GLUCOSE [id number] 01:51:00 Test Item Value Reference Range Interpretation Comments Comment2 (test code = Assess Patient Comment2) [facility] GLUCOSE [id number] 01:51:00 Test Item Value Reference Range Interpretation Comments Comment2 (test code = Assess Patient Comment2) [facility] [id number] 01:51:00 Test Item Value Reference Range Interpretation Comments Comment2 (test code = Assess Patient Comment2) [facility] [id number] 01:51:00 Test Item Value Reference Range Interpretation Comments Comment2 (test code = Assess Patient Comment2) [facility] GLUCOSE [id number] 16:28:00 Test Item Value Reference Range Interpretation Comments Comment2 (test code = Assess Patient Comment2) [facility] GLUCOSE [id number] 16:28:00 Test Item Value Reference Range Interpretation Comments Comment2 (test code = Assess Patient Comment2) [facility] GLUCOSE [id number] 16:28:00 Test Item Value Reference Range Interpretation Comments Comment2 (test code = Assess Patient Comment2) [facility] GLUCOSE [id number] 16:28:00 Test Item Value Reference Range Interpretation Comments Comment2 (test code = Assess Patient Comment2) [facility] GLUCOSE [id number] 16:28:00 Test Item Value Reference Range Interpretation Comments Comment2 (test code = Assess Patient Comment2) [facility] GLUCOSE [id number] 16:28:00 Test Item Value Reference Range Interpretation Comments Comment2 (test code = Assess Patient Comment2) [facility] HospitalUhdxxapSJSTPBQSM7747-90-84 07:45:00 Test Item Value Reference Range Interpretation Comments Phosphorus (test code = Phosphorus) 3.2 2.5-4.5 N [facility] HospitalRbgifuhOVWMPGTTN6113-93-68 07:45:00 Test Item Value Reference Range Interpretation Comments Magnesium Lvl (test code = Magnesium 2.0 1.8-2.4 N Lvl) [facility] HospitalQbhfbgaRHJHZMIIU4527-63-01 07:45:00 Test Item Value Reference Range Interpretation Comments eGFR (test code = eGFR) 55 [facility] HospitalQurmpcsIRTONFWQW0412-04-36 07:45:00 Test Item Value Reference Range Interpretation Comments Glucose Lvl (test code = Glucose Lvl) 98 70-99 N [facility] HospitalThadkqqOXOTSAOJQ1566-73-90 07:45:00 Test Item Value Reference Range Interpretation Comments Creatinine Lvl (test code = Creatinine 1.1 0.5-1.4 N Lvl) [facility] HospitalLaredldXZWQSXPCB3011-46-36 07:45:00 Test Item Value Reference Range Interpretation Comments Sodium Lvl (test code = Sodium Lvl) 137 135-145 N [facility] HospitalXqrxixjURKEUJIUN5840-39-37 07:45:00 Test Item Value Reference Range Interpretation Comments BUN (test code = BUN) 24 7-22 H [facility] HospitalMfffltrQLBJHGUJG5057-24-91 07:45:00 Test Item Value Reference Range Interpretation Comments Calcium Lvl (test code = Calcium Lvl) 8.2 8.5-10.5 L [facility] HospitalZvagzdmSJTUIIJRV2310-81-67 07:45:00 Test Item Value Reference Range Interpretation Comments AGAP (test code = AGAP) 14.2 10.0-20.0 N [facility] HospitalPbokiayPUPHHYDTK6170-18-49 07:45:00 Test Item Value Reference Range Interpretation Comments Chloride Lvl (test code = Chloride Lvl) 94 95-109 L [facility] HospitalVycixsjMOVXKZADD6314-73-32 07:45:00 Test Item Value Reference Range Interpretation Comments CO2 (test code = CO2) 32 24-32 N [facility] HospitalPeaytulKFODBIUMH4516-50-07 07:45:00 Test Item Value Reference Range Interpretation Comments Potassium Lvl (test code = Potassium 3.2 3.5-5.1 L Lvl) [facility]Dqvs[facility]ryBPUSAQCAOU3018-82-60 07:45:00 Test Item Value Reference Range Interpretation Comments Basophils # (test code 0.0 See_Comment N [Aut omated message] The = Basophils #) system which generated this result tra nsmitted reference range : <=0.2. The reference r katie was not used to int erpret this result as normal/abnormal . [facility] HospitalJfhjdvpSLRZTGLZRV5977-69-84 07:45:00 Test Item Value Reference Range Interpretation Comments Eosinophils # (test code 0.0 See_Comment N [A utomated message] The = Eosinophils #) system whic h generated this result tra nsmitted reference range : <=0.5. The reference r katie was not used to int erpret this result as normal/abnormal . [facility] HospitalDpbjlyjZAEFZRVJMW9714-43-47 07:45:00 Test Item Value Reference Range Interpretation Comments Monocytes # (test code 0.6 See_Comment N [Aut omated message] The = Monocytes #) system which generated this result tra nsmitted reference range : <=0.8. The reference r katie was not used to int erpret this result as normal/abnormal . [facility] HospitalBctbjnrIEXQENNWAC0570-76-64 07:45:00 Test Item Value Reference Range Interpretation Comments Lymphocytes # (test code = Lymphocytes 1.3 1.0-5.5 N #) [facility] HospitalNywpdnbQBFLMTAEYK9144-39-35 07:45:00 Test Item Value Reference Range Interpretation Comments Basophils (test code = 0.0 See_Comment N [Aut omated message] The Basophils) system which ge nerated this result tra nsmitted reference range : <=1.0. The reference r katie was not used to int erpret this result as normal/abnormal . [facility] HospitalOuibszmTLALIJODQN5442-47-39 07:45:00 Test Item Value Reference Range Interpretation Comments Segs-Bands # (test code = Segs-Bands #) 12.6 1.5-8.1 H [facility] HospitalDtidfikJUSHFCDIDZ4069-67-77 07:45:00 Test Item Value Reference Range Interpretation Comments Monocytes (test code = Monocytes) 4.4 2.0-12.0 N [facility] HospitalRzunkjzJBEBGYADGN8118-76-36 07:45:00 Test Item Value Reference Range Interpretation Comments Eosinophils (test code = 0.0 See_Comment N [A utomated message] The Eosinophils) system which ge nerated this result tra nsmitted reference range : <=4.0. The reference r katie was not used to int erpret this result as normal/abnormal . [facility] HospitalJdymujcGRTSDEPSRJ8123-89-99 07:45:00 Test Item Value Reference Range Interpretation Comments Segs (test code = Segs) 86.5 45.0-75.0 H [facility] HospitalWzafvbjADCWJTLZNV8669-26-30 07:45:00 Test Item Value Reference Range Interpretation Comments Lymphocytes (test code = Lymphocytes) 9.1 20.0-40.0 L [facility] HospitalSwbycusLVWRAUTJVM0308-74-12 07:45:00 Test Item Value Reference Range Interpretation Comments MCV (test code = MCV) 92.9 81.0-99.0 N [facility] HospitalXkntljuYEBMBHMUGI4990-05-15 07:45:00 Test Item Value Reference Range Interpretation Comments MCH (test code = MCH) 32.0 pg 27.0-31.0 H [facility] HospitalUyjyithHXAEUAUOSQ9588-75-54 07:45:00 Test Item Value Reference Range Interpretation Comments Hct (test code = Hct) 29.0 36.0-48.0 L [facility] HospitalTugaqfhASCTJYBQCT3026-23-63 07:45:00 Test Item Value Reference Range Interpretation Comments Hgb (test code = Hgb) 10.0 12.0-16.0 L [facility] HospitalBaokdpcUQLEMFDCAS5117-38-33 07:45:00 Test Item Value Reference Range Interpretation Comments Platelet (test code = Platelet) 286 133-450 N [facility] HospitalBrxgyqxYLXBMPGQQO2727-16-74 07:45:00 Test Item Value Reference Range Interpretation Comments MPV (test code = MPV) 7.2 7.4-10.4 L [facility] HospitalFuzxtwoYZCCLYOZYQ6647-72-64 07:45:00 Test Item Value Reference Range Interpretation Comments RDW (test code = RDW) 16.8 11.5-14.5 H [facility] HospitalTcmavmyGZWTIPIIWP0063-12-30 07:45:00 Test Item Value Reference Range Interpretation Comments MCHC (test code = MCHC) 34.5 32.0-36.0 N [facility] HospitalHgitfauKVOVMNXTRU9211-38-08 07:45:00 Test Item Value Reference Range Interpretation Comments RBC (test code = RBC) 3.12 4.20-5.40 L [facility] HospitalMfqzgwtEFUEYCPMPR9459-91-91 07:45:00 Test Item Value Reference Range Interpretation Comments WBC (test code = WBC) 14.5 3.7-10.4 [facility]YlahzajBPRZIVGMFD5845-24-65 07:45:00 Test Item Value Reference Range Interpretation Comments Prealbumin (test code = Prealbumin) 16.1 18.0-45.0 L [facility] HospitalOamiqrjLCHHTNUGQ2525-41-31 07:45:00 Test Item Value Reference Range Interpretation Comments Phosphorus (test code = Phosphorus) 3.2 2.5-4.5 N [facility] HospitalTxairjqKFDHMKCMA7640-90-07 07:45:00 Test Item Value Reference Range Interpretation Comments Magnesium Lvl (test code = Magnesium 2.0 1.8-2.4 N Lvl) [facility] HospitalGspcttnBDZQBYAHW5761-88-15 07:45:00 Test Item Value Reference Range Interpretation Comments eGFR (test code = eGFR) 55 [facility] HospitalUlndevuGDJZOTOAG4306-22-89 07:45:00 Test Item Value Reference Range Interpretation Comments Glucose Lvl (test code = Glucose Lvl) 98 70-99 N [facility] HospitalNnhumfkOHLIIXEKE3698-48-74 07:45:00 Test Item Value Reference Range Interpretation Comments Creatinine Lvl (test code = Creatinine 1.1 0.5-1.4 N Lvl) [facility] HospitalBzgdlwvHRKFCJIJR9545-51-97 07:45:00 Test Item Value Reference Range Interpretation Comments Sodium Lvl (test code = Sodium Lvl) 137 135-145 N [facility] HospitalEghvhfdOWVODKNPP8208-01-02 07:45:00 Test Item Value Reference Range Interpretation Comments BUN (test code = BUN) 24 7-22 H [facility] HospitalLgpeeebANIZNPMUX2673-20-52 07:45:00 Test Item Value Reference Range Interpretation Comments Calcium Lvl (test code = Calcium Lvl) 8.2 8.5-10.5 L [facility] HospitalIccwzyrGUCPOIWMF2114-97-20 07:45:00 Test Item Value Reference Range Interpretation Comments AGAP (test code = AGAP) 14.2 10.0-20.0 N [facility] HospitalCaiqnzfEHFUBRDTC4712-51-03 07:45:00 Test Item Value Reference Range Interpretation Comments Chloride Lvl (test code = Chloride Lvl) 94 95-109 L [facility] HospitalPlfrccxSMUOUFIGI2513-48-05 07:45:00 Test Item Value Reference Range Interpretation Comments CO2 (test code = CO2) 32 24-32 N [facility] HospitalKdqskixPHIBIOWHI4044-87-76 07:45:00 Test Item Value Reference Range Interpretation Comments Potassium Lvl (test code = Potassium 3.2 3.5-5.1 L Lvl) [facility] HospitalKnwprhbJDCPZLNAXZ1615-60-24 07:45:00 Test Item Value Reference Range Interpretation Comments Basophils # (test code 0.0 See_Comment N [Aut omated message] The = Basophils #) system which generated this result tra nsmitted reference range : <=0.2. The reference r katie was not used to int erpret this result as normal/abnormal . [facility] HospitalDvennigJZLXWDIGIM6755-73-05 07:45:00 Test Item Value Reference Range Interpretation Comments Eosinophils # (test code 0.0 See_Comment N [A utomated message] The = Eosinophils #) system whic h generated this result tra nsmitted reference range : <=0.5. The reference r katie was not used to int erpret this result as normal/abnormal . [facility] HospitalMlhbzoqRZWABZZDIZ0980-32-46 07:45:00 Test Item Value Reference Range Interpretation Comments Monocytes # (test code 0.6 See_Comment N [Aut omated message] The = Monocytes #) system which generated this result tra nsmitted reference range : <=0.8. The reference r katie was not used to int erpret this result as normal/abnormal . [facility] HospitalQhmfsghDVTDFDMQSN2471-65-85 07:45:00 Test Item Value Reference Range Interpretation Comments Lymphocytes # (test code = Lymphocytes 1.3 1.0-5.5 N #) [facility] HospitalPletfncCAOQTVIADH1941-89-92 07:45:00 Test Item Value Reference Range Interpretation Comments Basophils (test code = 0.0 See_Comment N [Aut omated message] The Basophils) system which ge nerated this result tra nsmitted reference range : <=1.0. The reference r katie was not used to int erpret this result as normal/abnormal . [facility] HospitalMfeizvsJWZDZPHPCN1460-27-26 07:45:00 Test Item Value Reference Range Interpretation Comments Segs-Bands # (test code = Segs-Bands #) 12.6 1.5-8.1 H [facility] HospitalNfjcrxbOLSSICAFRW2197-54-20 07:45:00 Test Item Value Reference Range Interpretation Comments Monocytes (test code = Monocytes) 4.4 2.0-12.0 N [facility] HospitalUcvhxxyLXBIFAEDOA9705-92-63 07:45:00 Test Item Value Reference Range Interpretation Comments Eosinophils (test code = 0.0 See_Comment N [A utomated message] The Eosinophils) system which ge nerated this result tra nsmitted reference range : <=4.0. The reference r katie was not used to int erpret this result as normal/abnormal . [facility] HospitalCkydpjjADDWVGFDQZ9810-03-01 07:45:00 Test Item Value Reference Range Interpretation Comments Segs (test code = Segs) 86.5 45.0-75.0 H [facility] HospitalNzdeycqHIKKBBRMGY7792-52-30 07:45:00 Test Item Value Reference Range Interpretation Comments Lymphocytes (test code = Lymphocytes) 9.1 20.0-40.0 L [facility] HospitalCebxwlyOOENIYNTTG5367-65-34 07:45:00 Test Item Value Reference Range Interpretation Comments MCV (test code = MCV) 92.9 81.0-99.0 N [facility] HospitalVoqesjjUDWEUXWFYB9219-49-41 07:45:00 Test Item Value Reference Range Interpretation Comments MCH (test code = MCH) 32.0 pg 27.0-31.0 H [facility] HospitalBdoydyeTSBERMPCKY8888-01-23 07:45:00 Test Item Value Reference Range Interpretation Comments Hct (test code = Hct) 29.0 36.0-48.0 L [facility] HospitalXwevcnmKHQLUSDQPG6673-16-94 07:45:00 Test Item Value Reference Range Interpretation Comments Hgb (test code = Hgb) 10.0 12.0-16.0 L [facility] HospitalTpyryegRQTQQBYDAT0184-18-32 07:45:00 Test Item Value Reference Range Interpretation Comments Platelet (test code = Platelet) 286 133-450 N [facility] HospitalWptwwkfMUDWQGLVBX9465-03-25 07:45:00 Test Item Value Reference Range Interpretation Comments MPV (test code = MPV) 7.2 7.4-10.4 L [facility] HospitalRylxdgrKCAJKZMVEF7133-76-95 07:45:00 Test Item Value Reference Range Interpretation Comments RDW (test code = RDW) 16.8 11.5-14.5 H [facility] HospitalLcjkwrzMHMRDYJPND4884-62-89 07:45:00 Test Item Value Reference Range Interpretation Comments MCHC (test code = MCHC) 34.5 32.0-36.0 N [facility] HospitalKgvnijnGMIGJHTWNX6628-77-56 07:45:00 Test Item Value Reference Range Interpretation Comments RBC (test code = RBC) 3.12 4.20-5.40 L [facility] HospitalNyemujdCBQASPTLEH7074-67-35 07:45:00 Test Item Value Reference Range Interpretation Comments WBC (test code = WBC) 14.5 3.7-10.4 [facility]ZzlcvpcNROFWAZFJU9260-73-83 07:45:00 Test Item Value Reference Range Interpretation Comments Prealbumin (test code = Prealbumin) 16.1 18.0-45.0 L [facility] HospitalMvwjcukYMZSUMKHX8186-30-30 07:45:00 Test Item Value Reference Range Interpretation Comments Phosphorus (test code = Phosphorus) 3.2 2.5-4.5 N [facility] HospitalHaimqtrIHSEOWFIX3846-30-82 07:45:00 Test Item Value Reference Range Interpretation Comments Magnesium Lvl (test code = Magnesium 2.0 1.8-2.4 N Lvl) [facility]ftgagwWYERGXQOO9575-32-98 07:45:00 Test Item Value Reference Range Interpretation Comments eGFR (test code = eGFR) 55 [facility] HospitalFikwawoKKREGVKJD6379-47-04 07:45:00 Test Item Value Reference Range Interpretation Comments Glucose Lvl (test code = Glucose Lvl) 98 70-99 N [facility] HospitalDqxlyrxAYOFOTONQ4483-24-35 07:45:00 Test Item Value Reference Range Interpretation Comments Creatinine Lvl (test code = Creatinine 1.1 0.5-1.4 N Lvl) [facility] HospitalTxcubaiXOQDZOSIC0546-92-98 07:45:00 Test Item Value Reference Range Interpretation Comments Sodium Lvl (test code = Sodium Lvl) 137 135-145 N [facility] HospitalNfdieakQDGQEURYL5913-69-76 07:45:00 Test Item Value Reference Range Interpretation Comments BUN (test code = BUN) 24 7-22 H [facility] HospitalMjpcfunFPKBANBTS6789-44-30 07:45:00 Test Item Value Reference Range Interpretation Comments Calcium Lvl (test code = Calcium Lvl) 8.2 8.5-10.5 L [facility] HospitalNuujiykATNBGCTSZ0488-69-35 07:45:00 Test Item Value Reference Range Interpretation Comments AGAP (test code = AGAP) 14.2 10.0-20.0 N [facility] HospitalBcrtfzrZQPBGIHUP6333-28-58 07:45:00 Test Item Value Reference Range Interpretation Comments Chloride Lvl (test code = Chloride Lvl) 94 95-109 L [facility] HospitalUrskihvYMOQVJCSA9087-05-34 07:45:00 Test Item Value Reference Range Interpretation Comments CO2 (test code = CO2) 32 24-32 N [facility] HospitalOnexpnyBCJEACLKG2373-06-68 07:45:00 Test Item Value Reference Range Interpretation Comments Potassium Lvl (test code = Potassium 3.2 3.5-5.1 L Lvl) [facility]BtrevozRJSSIBVRVD1019-91-93 07:45:00 Test Item Value Reference Range Interpretation Comments Basophils # (test code 0.0 See_Comment N [Aut omated message] The = Basophils #) system which generated this result tra nsmitted reference range : <=0.2. The reference r katie was not used to int erpret this result as normal/abnormal . [facility] HospitalWmaoxaaDPENNTSYBO4781-61-16 07:45:00 Test Item Value Reference Range Interpretation Comments Eosinophils # (test code 0.0 See_Comment N [A utomated message] The = Eosinophils #) system whic h generated this result tra nsmitted reference range : <=0.5. The reference r katie was not used to int erpret this result as normal/abnormal . [facility] HospitalOxsiujdEIEABBQOJX0080-02-14 07:45:00 Test Item Value Reference Range Interpretation Comments Monocytes # (test code 0.6 See_Comment N [Aut omated message] The = Monocytes #) system which generated this result tra nsmitted reference range : <=0.8. The reference r katie was not used to int erpret this result as normal/abnormal . [facility] HospitalBhckbobLHQXYFPVZL1694-77-77 07:45:00 Test Item Value Reference Range Interpretation Comments Lymphocytes # (test code = Lymphocytes 1.3 1.0-5.5 N #) [facility] HospitalBppspwuJFANATFAOS2851-15-04 07:45:00 Test Item Value Reference Range Interpretation Comments Basophils (test code = 0.0 See_Comment N [Aut omated message] The Basophils) system which ge nerated this result tra nsmitted reference range : <=1.0. The reference r katie was not used to int erpret this result as normal/abnormal . [facility] HospitalJzmbcezBKEJAZAOFQ2219-97-07 07:45:00 Test Item Value Reference Range Interpretation Comments Segs-Bands # (test code = Segs-Bands #) 12.6 1.5-8.1 H [facility] HospitalVnvlcmzMJSEIGMMGO9522-57-17 07:45:00 Test Item Value Reference Range Interpretation Comments Monocytes (test code = Monocytes) 4.4 2.0-12.0 N [facility] HospitalOrmpvjeCAIJXNCNQF7889-35-01 07:45:00 Test Item Value Reference Range Interpretation Comments Eosinophils (test code = 0.0 See_Comment N [A utomated message] The Eosinophils) system which ge nerated this result tra nsmitted reference range : <=4.0. The reference r katie was not used to int erpret this result as normal/abnormal . [facility] HospitalHnsewvnRCDCGRFSZL1934-95-19 07:45:00 Test Item Value Reference Range Interpretation Comments Segs (test code = Segs) 86.5 45.0-75.0 H [facility] HospitalEmrommzUXUQVUBEKS5142-89-89 07:45:00 Test Item Value Reference Range Interpretation Comments Lymphocytes (test code = Lymphocytes) 9.1 20.0-40.0 L [facility] HospitalDxvcpwpDKUICXZDXC9001-06-48 07:45:00 Test Item Value Reference Range Interpretation Comments MCV (test code = MCV) 92.9 81.0-99.0 N [facility] HospitalGfpxubqMHXXDMVNOQ5704-45-46 07:45:00 Test Item Value Reference Range Interpretation Comments MCH (test code = MCH) 32.0 pg 27.0-31.0 H [facility] HospitalCopkfjtVQYBIWRQTB0419-38-23 07:45:00 Test Item Value Reference Range Interpretation Comments Hct (test code = Hct) 29.0 36.0-48.0 L [facility]SfdszmhPBRHXMYBRQ1277-38-16 07:45:00 Test Item Value Reference Range Interpretation Comments Hgb (test code = Hgb) 10.0 12.0-16.0 L [facility] HospitalZuvwdxnCGHWEFUYTW7612-34-38 07:45:00 Test Item Value Reference Range Interpretation Comments Platelet (test code = Platelet) 286 133-450 N [facility] HospitalAqbnwqfQTEXEYIUMH1984-64-02 07:45:00 Test Item Value Reference Range Interpretation Comments MPV (test code = MPV) 7.2 7.4-10.4 L [facility] HospitalHbuflulRNZEGSAJXK8981-15-86 07:45:00 Test Item Value Reference Range Interpretation Comments RDW (test code = RDW) 16.8 11.5-14.5 H [facility] HospitalGpihdriITLESISGUE6379-55-50 07:45:00 Test Item Value Reference Range Interpretation Comments MCHC (test code = MCHC) 34.5 32.0-36.0 N [facility] HospitalCsxclzbAFAXLMOHJJ3926-48-12 07:45:00 Test Item Value Reference Range Interpretation Comments RBC (test code = RBC) 3.12 4.20-5.40 L [facility]HqirwwkHMCFAEHPKK4408-26-00 07:45:00 Test Item Value Reference Range Interpretation Comments WBC (test code = WBC) 14.5 3.7-10.4 [facility]BoqbpjxBFMGEQALWK3703-01-83 07:45:00 Test Item Value Reference Range Interpretation Comments Prealbumin (test code = Prealbumin) 16.1 18.0-45.0 L [facility] CenterVxoyzeoDAJEZJCFV1953-57-52 07:45:00 Test Item Value Reference Range Interpretation Comments Phosphorus (test code = Phosphorus) 3.2 2.5-4.5 N [facility] HospitalAwrwdzyFVPBRMREH2449-68-98 07:45:00 Test Item Value Reference Range Interpretation Comments Magnesium Lvl (test code = Magnesium 2.0 1.8-2.4 N Lvl) [facility] HospitalSxgzfrlGGNFWZVFV8620-01-35 07:45:00 Test Item Value Reference Range Interpretation Comments eGFR (test code = eGFR) 55 [facility] HospitalQpzfhisQBZGBILRH0541-38-43 07:45:00 Test Item Value Reference Range Interpretation Comments Glucose Lvl (test code = Glucose Lvl) 98 70-99 N [facility] HospitalQhhpccdJJVSHCTFK4857-58-57 07:45:00 Test Item Value Reference Range Interpretation Comments Creatinine Lvl (test code = Creatinine 1.1 0.5-1.4 N Lvl) [facility] HospitalVrqtgwmVUPGSVMGE7217-91-76 07:45:00 Test Item Value Reference Range Interpretation Comments Sodium Lvl (test code = Sodium Lvl) 137 135-145 N [facility] HospitalBowqpikFNPMDIQNO2720-95-22 07:45:00 Test Item Value Reference Range Interpretation Comments BUN (test code = BUN) 24 7-22 H [facility] HospitalEhxxuhiELWNMCHCT4340-18-68 07:45:00 Test Item Value Reference Range Interpretation Comments Calcium Lvl (test code = Calcium Lvl) 8.2 8.5-10.5 L [facility] HospitalFiivphsETLKQNBUD3002-37-77 07:45:00 Test Item Value Reference Range Interpretation Comments AGAP (test code = AGAP) 14.2 10.0-20.0 N [facility] HospitalQbxzmvzEVXLYWWSD8511-89-02 07:45:00 Test Item Value Reference Range Interpretation Comments Chloride Lvl (test code = Chloride Lvl) 94 95-109 L [facility] HospitalBzfqyxhGAHSMBRNS8957-46-80 07:45:00 Test Item Value Reference Range Interpretation Comments CO2 (test code = CO2) 32 24-32 N [facility] HospitalHbqotijMZNXBPXAX1986-83-38 07:45:00 Test Item Value Reference Range Interpretation Comments Potassium Lvl (test code = Potassium 3.2 3.5-5.1 L Lvl) [facility] HospitalVukwuxoDGPIONLAOQ8775-49-99 07:45:00 Test Item Value Reference Range Interpretation Comments Basophils # (test code 0.0 See_Comment N [Aut omated message] The = Basophils #) system which generated this result tra nsmitted reference range : <=0.2. The reference r katie was not used to int erpret this result as normal/abnormal . [facility] HospitalJdicluaTXSFYAIOAR3640-27-96 07:45:00 Test Item Value Reference Range Interpretation Comments Eosinophils # (test code 0.0 See_Comment N [A utomated message] The = Eosinophils #) system whic h generated this result tra nsmitted reference range : <=0.5. The reference r katie was not used to int erpret this result as normal/abnormal . [facility] HospitalIoqcjqpBCWOUZWOMT9531-41-07 07:45:00 Test Item Value Reference Range Interpretation Comments Monocytes # (test code 0.6 See_Comment N [Aut omated message] The = Monocytes #) system which generated this result tra nsmitted reference range : <=0.8. The reference r katie was not used to int erpret this result as normal/abnormal . [facility] HospitalAytgpjxIVOVAGHVCH2090-14-96 07:45:00 Test Item Value Reference Range Interpretation Comments Lymphocytes # (test code = Lymphocytes 1.3 1.0-5.5 N #) [facility] HospitalHnycndwEHIEOBTJWW9127-53-73 07:45:00 Test Item Value Reference Range Interpretation Comments Basophils (test code = 0.0 See_Comment N [Aut omated message] The Basophils) system which ge nerated this result tra nsmitted reference range : <=1.0. The reference r katie was not used to int erpret this result as normal/abnormal . [facility] HospitalKdgajreKEDBVGDIDN8327-85-13 07:45:00 Test Item Value Reference Range Interpretation Comments Segs-Bands # (test code = Segs-Bands #) 12.6 1.5-8.1 H [facility] HospitalQxkgevtKYZHKBDMZV3873-68-90 07:45:00 Test Item Value Reference Range Interpretation Comments Monocytes (test code = Monocytes) 4.4 2.0-12.0 N [facility] HospitalDqzetyySSIWTGZSBT2522-49-24 07:45:00 Test Item Value Reference Range Interpretation Comments Eosinophils (test code = 0.0 See_Comment N [A utomated message] The Eosinophils) system which ge nerated this result tra nsmitted reference range : <=4.0. The reference r katie was not used to int erpret this result as normal/abnormal . [facility] HospitalRgydxmnGSTMSFBUTN6786-66-89 07:45:00 Test Item Value Reference Range Interpretation Comments Segs (test code = Segs) 86.5 45.0-75.0 H [facility] HospitalPectmjjLWWBEMOFQZ7415-52-33 07:45:00 Test Item Value Reference Range Interpretation Comments Lymphocytes (test code = Lymphocytes) 9.1 20.0-40.0 L [facility] HospitalDrtwgpkNDEVUXTSTJ5394-32-03 07:45:00 Test Item Value Reference Range Interpretation Comments MCV (test code = MCV) 92.9 81.0-99.0 N [facility] HospitalKhwbuttZHWFCBFBLI4288-69-37 07:45:00 Test Item Value Reference Range Interpretation Comments MCH (test code = MCH) 32.0 pg 27.0-31.0 H [facility] HospitalIzfxdetPVXKQXLUZQ9186-82-28 07:45:00 Test Item Value Reference Range Interpretation Comments Hct (test code = Hct) 29.0 36.0-48.0 L [facility] HospitalShmbvsyUHLLVRHZTN7150-12-06 07:45:00 Test Item Value Reference Range Interpretation Comments Hgb (test code = Hgb) 10.0 12.0-16.0 L [facility] HospitalRgjlryhCUGQVMFZNA5852-93-95 07:45:00 Test Item Value Reference Range Interpretation Comments Platelet (test code = Platelet) 286 133-450 N [facility] HospitalAmefpbyCPATEQQLTJ7840-48-28 07:45:00 Test Item Value Reference Range Interpretation Comments MPV (test code = MPV) 7.2 7.4-10.4 L [facility] HospitalKzobozaDUMZJHQVJL3189-52-07 07:45:00 Test Item Value Reference Range Interpretation Comments RDW (test code = RDW) 16.8 11.5-14.5 H [facility] HospitalIfnyzfbFOAKWHMAAI8509-75-86 07:45:00 Test Item Value Reference Range Interpretation Comments MCHC (test code = MCHC) 34.5 32.0-36.0 N [facility] HospitalBvkzymgXJNKKEYUNH9772-25-59 07:45:00 Test Item Value Reference Range Interpretation Comments RBC (test code = RBC) 3.12 4.20-5.40 L [facility] CenterBbkokkcITZUWFVUKS1675-31-18 07:45:00 Test Item Value Reference Range Interpretation Comments WBC (test code = WBC) 14.5 3.7-10.4 H [facility] CenterCbxnictIXBQWWIEMX8559-36-92 07:45:00 Test Item Value Reference Range Interpretation Comments Prealbumin (test code = Prealbumin) 16.1 18.0-45.0 L [facility] HospitalPmwtwugHIHSTCCOK3886-40-44 07:45:00 Test Item Value Reference Range Interpretation Comments Phosphorus (test code = Phosphorus) 3.2 2.5-4.5 N [facility] HospitalYswtpmjRZKGQDWRO4339-71-69 07:45:00 Test Item Value Reference Range Interpretation Comments Magnesium Lvl (test code = Magnesium 2.0 1.8-2.4 N Lvl) [facility] HospitalDxahamiFBIMHKWIC7467-64-76 07:45:00 Test Item Value Reference Range Interpretation Comments eGFR (test code = eGFR) 55 [facility] HospitalVjntcxiOLXZPXRON0593-76-68 07:45:00 Test Item Value Reference Range Interpretation Comments Glucose Lvl (test code = Glucose Lvl) 98 70-99 N [facility] HospitalNzmavpfYYYPCWTFH0354-62-75 07:45:00 Test Item Value Reference Range Interpretation Comments Creatinine Lvl (test code = Creatinine 1.1 0.5-1.4 N Lvl) [facility] HospitalAyyvfdoJHFLIFWAN9742-27-96 07:45:00 Test Item Value Reference Range Interpretation Comments Sodium Lvl (test code = Sodium Lvl) 137 135-145 N [facility] HospitalMavirqqQBKVLWZFX1174-80-34 07:45:00 Test Item Value Reference Range Interpretation Comments BUN (test code = BUN) 24 7-22 H [facility] HospitalNzjiwfzMXVJLTOQQ5641-05-27 07:45:00 Test Item Value Reference Range Interpretation Comments Calcium Lvl (test code = Calcium Lvl) 8.2 8.5-10.5 L [facility] HospitalJqwwdehZJSMMORXG6781-79-63 07:45:00 Test Item Value Reference Range Interpretation Comments AGAP (test code = AGAP) 14.2 10.0-20.0 N [facility] HospitalNdrjxkbCJIBXMBTW4780-14-56 07:45:00 Test Item Value Reference Range Interpretation Comments Chloride Lvl (test code = Chloride Lvl) 94 95-109 L [facility] HospitalUjfofrgVWGGBMBIR7287-13-15 07:45:00 Test Item Value Reference Range Interpretation Comments CO2 (test code = CO2) 32 24-32 N [facility] HospitalYlrnthkETUNVZMUF2805-59-41 07:45:00 Test Item Value Reference Range Interpretation Comments Potassium Lvl (test code = Potassium 3.2 3.5-5.1 L Lvl) [facility] HospitalOijsltgAVFXFZFHAQ9931-15-06 07:45:00 Test Item Value Reference Range Interpretation Comments Basophils # (test code 0.0 See_Comment N [Aut omated message] The = Basophils #) system which generated this result tra nsmitted reference range : <=0.2. The reference r katie was not used to int erpret this result as normal/abnormal . [facility] HospitalColufshUZALDCAZAM4424-83-67 07:45:00 Test Item Value Reference Range Interpretation Comments Eosinophils # (test code 0.0 See_Comment N [A utomated message] The = Eosinophils #) system whic h generated this result tra nsmitted reference range : <=0.5. The reference r katie was not used to int erpret this result as normal/abnormal . [facility] HospitalGlkscacHTBIUADUXA0320-56-26 07:45:00 Test Item Value Reference Range Interpretation Comments Monocytes # (test code 0.6 See_Comment N [Aut omated message] The = Monocytes #) system which generated this result tra nsmitted reference range : <=0.8. The reference r katie was not used to int erpret this result as normal/abnormal . [facility] HospitalBzkzfwfPLUBWTEQAU9786-59-87 07:45:00 Test Item Value Reference Range Interpretation Comments Lymphocytes # (test code = Lymphocytes 1.3 1.0-5.5 N #) [facility] HospitalBlcenjmHXKJCOITWK5429-45-66 07:45:00 Test Item Value Reference Range Interpretation Comments Basophils (test code = 0.0 See_Comment N [Aut omated message] The Basophils) system which ge nerated this result tra nsmitted reference range : <=1.0. The reference r katie was not used to int erpret this result as normal/abnormal . [facility] HospitalJsogpafHBSZNBHIHE1321-00-84 07:45:00 Test Item Value Reference Range Interpretation Comments Segs-Bands # (test code = Segs-Bands #) 12.6 1.5-8.1 H [facility] HospitalYnobfkfOZLXTFWCVL9313-91-29 07:45:00 Test Item Value Reference Range Interpretation Comments Monocytes (test code = Monocytes) 4.4 2.0-12.0 N [facility] HospitalLxmvllbIIYEKKWZYQ3989-74-00 07:45:00 Test Item Value Reference Range Interpretation Comments Eosinophils (test code = 0.0 See_Comment N [A utomated message] The Eosinophils) system which ge nerated this result tra nsmitted reference range : <=4.0. The reference r katie was not used to int erpret this result as normal/abnormal . [facility] HospitalMbimwlbCUYRZXWAAA6776-90-99 07:45:00 Test Item Value Reference Range Interpretation Comments Segs (test code = Segs) 86.5 45.0-75.0 H [facility] HospitalPeefoqtUYHYCIZVPL4774-97-90 07:45:00 Test Item Value Reference Range Interpretation Comments Lymphocytes (test code = Lymphocytes) 9.1 20.0-40.0 L [facility] HospitalRvrexkwKMHWWSMXTJ2975-80-94 07:45:00 Test Item Value Reference Range Interpretation Comments MCV (test code = MCV) 92.9 81.0-99.0 N [facility] HospitalDyawbjeXUDVJIPKVU3015-40-67 07:45:00 Test Item Value Reference Range Interpretation Comments MCH (test code = MCH) 32.0 pg 27.0-31.0 H [facility] HospitalDdmzrliDIOBGHZOCL9607-92-47 07:45:00 Test Item Value Reference Range Interpretation Comments Hct (test code = Hct) 29.0 36.0-48.0 L [facility] HospitalMqseukcMSTODJAEEE4805-96-71 07:45:00 Test Item Value Reference Range Interpretation Comments Hgb (test code = Hgb) 10.0 12.0-16.0 L [facility] HospitalKsuaacyGRTPESADOC1400-81-50 07:45:00 Test Item Value Reference Range Interpretation Comments Platelet (test code = Platelet) 286 133-450 N [facility] HospitalNhluchfJYBNNTHBHL7402-85-72 07:45:00 Test Item Value Reference Range Interpretation Comments MPV (test code = MPV) 7.2 7.4-10.4 L [facility] HospitalHzziazfNCDVGWHYTH8514-80-76 07:45:00 Test Item Value Reference Range Interpretation Comments RDW (test code = RDW) 16.8 11.5-14.5 H [facility] HospitalPavjhtcALKEWJAASL0744-03-78 07:45:00 Test Item Value Reference Range Interpretation Comments MCHC (test code = MCHC) 34.5 32.0-36.0 N [facility] HospitalRooozuqSMLQETTUBZ9788-69-46 07:45:00 Test Item Value Reference Range Interpretation Comments RBC (test code = RBC) 3.12 4.20-5.40 L [facility] HospitalKtnctwzCNPQUAHHQS2182-81-92 07:45:00 Test Item Value Reference Range Interpretation Comments WBC (test code = WBC) 14.5 3.7-10.4 [facility] CenterGvtaovkAIVCDAMHGC8314-96-53 07:45:00 Test Item Value Reference Range Interpretation Comments Prealbumin (test code = Prealbumin) 16.1 18.0-45.0 L [facility] HospitalDjyrhmjOWDLDFSBD8603-30-91 07:45:00 Test Item Value Reference Range Interpretation Comments Phosphorus (test code = Phosphorus) 3.2 2.5-4.5 N [facility] HospitalLgyqusmBOESMSKAB6138-32-77 07:45:00 Test Item Value Reference Range Interpretation Comments Magnesium Lvl (test code = Magnesium 2.0 1.8-2.4 N Lvl) [facility] HospitalHxybzkkOWBNVHYTI2800-33-71 07:45:00 Test Item Value Reference Range Interpretation Comments eGFR (test code = eGFR) 55 [facility] HospitalPglbzqtMOYTXJLKG2602-01-96 07:45:00 Test Item Value Reference Range Interpretation Comments Glucose Lvl (test code = Glucose Lvl) 98 70-99 N [facility] HospitalKrmhgtvLWBTXIDYJ9682-97-79 07:45:00 Test Item Value Reference Range Interpretation Comments Creatinine Lvl (test code = Creatinine 1.1 0.5-1.4 N Lvl) [facility] HospitalKufmidbUCGKZSGTV8207-50-04 07:45:00 Test Item Value Reference Range Interpretation Comments Sodium Lvl (test code = Sodium Lvl) 137 135-145 N [facility] HospitalFrzfvvfEVGREWXBI7906-04-50 07:45:00 Test Item Value Reference Range Interpretation Comments BUN (test code = BUN) 24 7-22 H [facility] HospitalUcmhzsjLMRNNUCLV4880-17-33 07:45:00 Test Item Value Reference Range Interpretation Comments Calcium Lvl (test code = Calcium Lvl) 8.2 8.5-10.5 L [facility] HospitalOnkxkicCAZPXSNZK9703-77-76 07:45:00 Test Item Value Reference Range Interpretation Comments AGAP (test code = AGAP) 14.2 10.0-20.0 N [facility] HospitalLggazrnZAWGCCAQX4675-38-66 07:45:00 Test Item Value Reference Range Interpretation Comments Chloride Lvl (test code = Chloride Lvl) 94 95-109 L [facility] HospitalYxwuahmCAFGBBBGY8680-13-14 07:45:00 Test Item Value Reference Range Interpretation Comments CO2 (test code = CO2) 32 24-32 N [facility] HospitalMkapfysICLRJXMSF9158-21-15 07:45:00 Test Item Value Reference Range Interpretation Comments Potassium Lvl (test code = Potassium 3.2 3.5-5.1 L Lvl) [facility]LweskbiGEFJGXJBNM8419-42-04 07:45:00 Test Item Value Reference Range Interpretation Comments Basophils # (test code 0.0 See_Comment N [Aut omated message] The = Basophils #) system which generated this result tra nsmitted reference range : <=0.2. The reference r katie was not used to int erpret this result as normal/abnormal . [facility] HospitalGemwvcmNUFDYAOOEC1408-28-87 07:45:00 Test Item Value Reference Range Interpretation Comments Eosinophils # (test code 0.0 See_Comment N [A utomated message] The = Eosinophils #) system whic h generated this result tra nsmitted reference range : <=0.5. The reference r katie was not used to int erpret this result as normal/abnormal . [facility] HospitalWwzwqcsPGKHXRXQUP4663-13-76 07:45:00 Test Item Value Reference Range Interpretation Comments Monocytes # (test code 0.6 See_Comment N [Aut omated message] The = Monocytes #) system which generated this result tra nsmitted reference range : <=0.8. The reference r katie was not used to int erpret this result as normal/abnormal . [facility] HospitalJwppvojKCTPDGZUGM6845-93-17 07:45:00 Test Item Value Reference Range Interpretation Comments Lymphocytes # (test code = Lymphocytes 1.3 1.0-5.5 N #) [facility] HospitalSliuzmaBTIHSLXAIP0570-68-91 07:45:00 Test Item Value Reference Range Interpretation Comments Basophils (test code = 0.0 See_Comment N [Aut omated message] The Basophils) system which ge nerated this result tra nsmitted reference range : <=1.0. The reference r katie was not used to int erpret this result as normal/abnormal . [facility] HospitalQphoxilQOYOJGQAYL8727-58-35 07:45:00 Test Item Value Reference Range Interpretation Comments Segs-Bands # (test code = Segs-Bands #) 12.6 1.5-8.1 H [facility] HospitalGvrepcnKRTFABAWUN9176-43-06 07:45:00 Test Item Value Reference Range Interpretation Comments Monocytes (test code = Monocytes) 4.4 2.0-12.0 N [facility] HospitalJlpbqdhHOZELNOZAO6458-95-12 07:45:00 Test Item Value Reference Range Interpretation Comments Eosinophils (test code = 0.0 See_Comment N [A utomated message] The Eosinophils) system which ge nerated this result tra nsmitted reference range : <=4.0. The reference r katie was not used to int erpret this result as normal/abnormal . [facility] HospitalElqdasdTZXMOXDRXK0637-96-46 07:45:00 Test Item Value Reference Range Interpretation Comments Segs (test code = Segs) 86.5 45.0-75.0 H [facility] HospitalPhnpoynQIPLSIANPK0581-69-94 07:45:00 Test Item Value Reference Range Interpretation Comments Lymphocytes (test code = Lymphocytes) 9.1 20.0-40.0 L [facility] HospitalNrsblhyADEEAHDMRG4063-59-28 07:45:00 Test Item Value Reference Range Interpretation Comments MCV (test code = MCV) 92.9 81.0-99.0 N [facility] HospitalZvcibyaYJZMPDAHEA6011-75-24 07:45:00 Test Item Value Reference Range Interpretation Comments MCH (test code = MCH) 32.0 pg 27.0-31.0 [facility] HospitalQpokzohQPYNFQSMUA6504-56-78 07:45:00 Test Item Value Reference Range Interpretation Comments Hct (test code = Hct) 29.0 36.0-48.0 L [facility] HospitalZblgaroKKGZVKWETK1042-21-13 07:45:00 Test Item Value Reference Range Interpretation Comments Hgb (test code = Hgb) 10.0 12.0-16.0 L [facility] HospitalHbrzcvsUJGWNDUYRX8938-07-54 07:45:00 Test Item Value Reference Range Interpretation Comments Platelet (test code = Platelet) 286 133-450 N [facility] HospitalRadffcyPBHDKDXTZT8817-20-91 07:45:00 Test Item Value Reference Range Interpretation Comments MPV (test code = MPV) 7.2 7.4-10.4 L [facility] HospitalWioczdiCFNLSMYVYL2618-35-27 07:45:00 Test Item Value Reference Range Interpretation Comments RDW (test code = RDW) 16.8 11.5-14.5 H [facility] HospitalScohqybXQOMUECZEA8858-77-39 07:45:00 Test Item Value Reference Range Interpretation Comments MCHC (test code = MCHC) 34.5 32.0-36.0 N [facility] HospitalSmvuojmQIKQJWPBAK3031-13-97 07:45:00 Test Item Value Reference Range Interpretation Comments RBC (test code = RBC) 3.12 4.20-5.40 L [facility] HospitalTngvvanRSBLVCJQAZ8118-57-74 07:45:00 Test Item Value Reference Range Interpretation Comments WBC (test code = WBC) 14.5 3.7-10.4 [facility]LlugvexATIRQQWPXE6785-94-77 07:45:00 Test Item Value Reference Range Interpretation Comments Prealbumin (test code = Prealbumin) 16.1 18.0-45.0 L [facility] HospitalAqqostaGMAEBKSEY0518-00-36 07:55:00 Test Item Value Reference Range Interpretation Comments eGFR (test code = eGFR) 61 [facility] HospitalGywyinoRRVJMFAKZ5840-48-24 07:55:00 Test Item Value Reference Range Interpretation Comments Calcium Lvl (test code = Calcium Lvl) 8.1 8.5-10.5 L [facility] HospitalQtohfnxEGOGQQWAL7489-39-38 07:55:00 Test Item Value Reference Range Interpretation Comments AGAP (test code = AGAP) 17.4 10.0-20.0 N [facility] HospitalYjoqvkhFKWGWYQNI3979-57-73 07:55:00 Test Item Value Reference Range Interpretation Comments Sodium Lvl (test code = Sodium Lvl) 147 135-145 H [facility] HospitalGsaglcqPKPKFXEMS7883-90-99 07:55:00 Test Item Value Reference Range Interpretation Comments Potassium Lvl (test code = Potassium 3.4 3.5-5.1 L Lvl) [facility] HospitalQrifipbESHGKQRLM9740-57-12 07:55:00 Test Item Value Reference Range Interpretation Comments Creatinine Lvl (test code = Creatinine 1.0 0.5-1.4 N Lvl) [facility] HospitalGigcsbuCSFNAFAFJ5826-41-38 07:55:00 Test Item Value Reference Range Interpretation Comments Chloride Lvl (test code = Chloride Lvl) 104 95-109 N [facility] HospitalXoifiknYBIHIYLHK1459-91-96 07:55:00 Test Item Value Reference Range Interpretation Comments CO2 (test code = CO2) 29 24-32 N [facility] HospitalAmsqpymVHGOTEHIW7004-50-41 07:55:00 Test Item Value Reference Range Interpretation Comments BUN (test code = BUN) 25 7-22 H [facility] HospitalBwobvmpGDAWPUVWG7370-67-96 07:55:00 Test Item Value Reference Range Interpretation Comments Glucose Lvl (test code = Glucose Lvl) 96 70-99 N [facility] HospitalUdfdupiEWVZOYJCQR5487-63-79 07:55:00 Test Item Value Reference Range Interpretation Comments RDW (test code = RDW) 17.3 11.5-14.5 H [facility] HospitalCwtkznhZSRNYMDZHM1327-67-75 07:55:00 Test Item Value Reference Range Interpretation Comments Platelet (test code = Platelet) 249 133-450 N [facility] HospitalXolefsgLMIFKBOLQS3274-53-15 07:55:00 Test Item Value Reference Range Interpretation Comments MPV (test code = MPV) 7.4 7.4-10.4 N [facility] HospitalTmpnmeeIRBILAEJAE2878-25-50 07:55:00 Test Item Value Reference Range Interpretation Comments MCHC (test code = MCHC) 33.8 32.0-36.0 N [facility] HospitalMyuwhgpRFUNGYGNLT0651-40-13 07:55:00 Test Item Value Reference Range Interpretation Comments Hct (test code = Hct) 27.3 36.0-48.0 L [facility] HospitalNgkbgwrKPLKXYPVJO5812-84-66 07:55:00 Test Item Value Reference Range Interpretation Comments MCV (test code = MCV) 93.3 81.0-99.0 N [facility] HospitalUxqcouaCDIAJAZBOE6468-72-88 07:55:00 Test Item Value Reference Range Interpretation Comments MCH (test code = MCH) 31.6 pg 27.0-31.0 H [facility] HospitalOudzxupXLOBINDCCL6338-92-55 07:55:00 Test Item Value Reference Range Interpretation Comments Hgb (test code = Hgb) 9.3 12.0-16.0 L [facility] HospitalCygiyhbXARSDCNMBA1843-91-60 07:55:00 Test Item Value Reference Range Interpretation Comments WBC (test code = WBC) 14.3 3.7-10.4 H [facility] HospitalCrquhtdWIQBPNTKUE1123-68-44 07:55:00 Test Item Value Reference Range Interpretation Comments RBC (test code = RBC) 2.93 4.20-5.40 L [facility] HospitalJtybihhAWRXRYPTWD7386-40-82 07:55:00 Test Item Value Reference Range Interpretation Comments Large Plt (test code = Slight *ABN*(02/27/2013 A Large Plt) 02:55:00) [facility] HospitalBcoulqwWAJRDKSPGJ7978-44-62 07:55:00 Test Item Value Reference Range Interpretation Comments Hypochrom (test code = Slight (02/27/2013 N Hypochrom) 02:55:00) [facility] HospitalNrzlnoxFRUHKUWBEU1686-41-49 07:55:00 Test Item Value Reference Range Interpretation Comments Polychrom (test code = Slight (02/27/2013 N Polychrom) 02:55:00) [facility] HospitalVmmbtbmFFPWFQYUAW1413-43-09 07:55:00 Test Item Value Reference Range Interpretation Comments Anisocyte (test code = 1+ *ABN*(02/27/2013 A Anisocyte) 02:55:00) [facility] HospitalPdiummkLOKQEHINEV4161-91-91 07:55:00 Test Item Value Reference Range Interpretation Comments Plt Morph (test code = Normal (02/27/2013 N Plt Morph) 02:55:00) [facility] HospitalBvanxmkHDWDBGFZDF2400-31-77 07:55:00 Test Item Value Reference Range Interpretation Comments Macrocyte (test code = 1+ *ABN*(02/27/2013 A Macrocyte) 02:55:00) [facility] HospitalPoxjbjaJSKBUNWIRH9765-52-32 07:55:00 Test Item Value Reference Range Interpretation Comments Segs (test code = Segs) 72.0 45.0-75.0 N [facility] HospitalDdbclxgMXCCJNBEDP1202-92-28 07:55:00 Test Item Value Reference Range Interpretation Comments Monocytes (test code = Monocytes) 6.0 2.0-12.0 N [facility] HospitalCnjhwrlGHKIVXLUCI4776-82-62 07:55:00 Test Item Value Reference Range Interpretation Comments Bands (test code = 10.0 See_Comment N [Automat ed message] The Bands) system which ge nerated this result transmit matteo reference range : <=11.0. The reference r katie was not used to interpr et this result as miesha l/abnormal. [facility] HospitalRcufgjbKMTVAEMPLH5140-19-81 07:55:00 Test Item Value Reference Range Interpretation Comments Atypical Lymphs (test code = Atypical 0.0 N Lymphs) [facility] HospitalDbtccywYVCNHPFYSR8297-69-90 07:55:00 Test Item Value Reference Range Interpretation Comments Lymphocytes (test code = Lymphocytes) 12.0 20.0-40.0 L [facility] HospitalZiexeqnXMCNSSPVZH6435-76-16 07:55:00 Test Item Value Reference Range Interpretation Comments Lymphocytes # (test code = Lymphocytes 1.7 1.0-5.5 N #) [facility] HospitalMjchhteCFOJJOPVCS4444-49-82 07:55:00 Test Item Value Reference Range Interpretation Comments Monocytes # (test code 0.9 See_Comment H [Aut omated message] The = Monocytes #) system which generated this result tra nsmitted reference range : <=0.8. The reference r katie was not used to int erpret this result as normal/abnormal . [facility] HospitalTllmtggGBXLYHVHKV4714-41-89 07:55:00 Test Item Value Reference Range Interpretation Comments Segs-Bands # (test code = Segs-Bands #) 11.7 1.5-8.1 H [facility] HospitalWymisfkLDBKGRRAN8794-27-00 07:55:00 Test Item Value Reference Range Interpretation Comments eGFR (test code = eGFR) 61 [facility] HospitalJiwyuvuVEIDTZXOP7111-28-72 07:55:00 Test Item Value Reference Range Interpretation Comments Calcium Lvl (test code = Calcium Lvl) 8.1 8.5-10.5 L [facility] HospitalUsqgnilHIOEIHQLE0979-38-77 07:55:00 Test Item Value Reference Range Interpretation Comments AGAP (test code = AGAP) 17.4 10.0-20.0 N [facility] HospitalOtuwnzaPOVRWGOEG9517-24-71 07:55:00 Test Item Value Reference Range Interpretation Comments Sodium Lvl (test code = Sodium Lvl) 147 135-145 H [facility] HospitalKpechwmJELXWRIUB9426-00-51 07:55:00 Test Item Value Reference Range Interpretation Comments Potassium Lvl (test code = Potassium 3.4 3.5-5.1 L Lvl) [facility] HospitalOblrnmqNGWMWLYML8341-34-16 07:55:00 Test Item Value Reference Range Interpretation Comments Creatinine Lvl (test code = Creatinine 1.0 0.5-1.4 N Lvl) [facility] HospitalChomxwvYEMGQBQVB7360-98-48 07:55:00 Test Item Value Reference Range Interpretation Comments Chloride Lvl (test code = Chloride Lvl) 104 95-109 N [facility] HospitalXtdvtppYVQCIXLGJ3482-24-21 07:55:00 Test Item Value Reference Range Interpretation Comments CO2 (test code = CO2) 29 24-32 N [facility] HospitalNcbskjeHGDCCBMQJ6117-87-78 07:55:00 Test Item Value Reference Range Interpretation Comments BUN (test code = BUN) 25 7-22 H [facility] HospitalUrvylovAFXNYEDDH0740-66-08 07:55:00 Test Item Value Reference Range Interpretation Comments Glucose Lvl (test code = Glucose Lvl) 96 70-99 N [facility] HospitalJkiswnlFMYBRURIEF1387-10-86 07:55:00 Test Item Value Reference Range Interpretation Comments RDW (test code = RDW) 17.3 11.5-14.5 H [facility] HospitalIvrmhqxEGTYLWAMNK7172-99-43 07:55:00 Test Item Value Reference Range Interpretation Comments Platelet (test code = Platelet) 249 133-450 N [facility] HospitalRvoxfbgTQTYSIECRT8023-85-73 07:55:00 Test Item Value Reference Range Interpretation Comments MPV (test code = MPV) 7.4 7.4-10.4 N [facility] HospitalWtdmbesDXDAMQBMYX0083-98-13 07:55:00 Test Item Value Reference Range Interpretation Comments MCHC (test code = MCHC) 33.8 32.0-36.0 N [facility] HospitalPfszdyiGNVRPOQDUR2251-57-62 07:55:00 Test Item Value Reference Range Interpretation Comments Hct (test code = Hct) 27.3 36.0-48.0 L [facility] HospitalSstpatuQEQVVAUCRG9627-11-41 07:55:00 Test Item Value Reference Range Interpretation Comments MCV (test code = MCV) 93.3 81.0-99.0 N [facility] HospitalSpleqnuYLCDRSDTOE6745-28-72 07:55:00 Test Item Value Reference Range Interpretation Comments MCH (test code = MCH) 31.6 pg 27.0-31.0 H [facility] HospitalSpdweleUFFDJSQZOZ0077-56-98 07:55:00 Test Item Value Reference Range Interpretation Comments Hgb (test code = Hgb) 9.3 12.0-16.0 L [facility] HospitalSuajnqxAIVALAUXAS7876-22-70 07:55:00 Test Item Value Reference Range Interpretation Comments WBC (test code = WBC) 14.3 3.7-10.4 H [facility] HospitalVxjxkrrJDBBQFMDDN9361-54-54 07:55:00 Test Item Value Reference Range Interpretation Comments RBC (test code = RBC) 2.93 4.20-5.40 L [facility] HospitalHmcsidoPVNMIRRJZS6901-10-99 07:55:00 Test Item Value Reference Range Interpretation Comments Large Plt (test code = Slight *ABN*(02/27/2013 A Large Plt) 02:55:00) [facility] HospitalUbjbtbfQZASUYGTQM6659-50-65 07:55:00 Test Item Value Reference Range Interpretation Comments Hypochrom (test code = Slight (02/27/2013 N Hypochrom) 02:55:00) [facility] HospitalZritvdzYJPYYCHGAZ6940-17-52 07:55:00 Test Item Value Reference Range Interpretation Comments Polychrom (test code = Slight (02/27/2013 N Polychrom) 02:55:00) [facility] HospitalRxqfdhdKKTRJPSMWF6335-19-41 07:55:00 Test Item Value Reference Range Interpretation Comments Anisocyte (test code = 1+ *ABN*(02/27/2013 A Anisocyte) 02:55:00) [facility] HospitalDsoqnbyIXBOVJXUXW9591-60-30 07:55:00 Test Item Value Reference Range Interpretation Comments Plt Morph (test code = Normal (02/27/2013 N Plt Morph) 02:55:00) [facility] HospitalDpxtucmTXZHVILEHX7929-29-30 07:55:00 Test Item Value Reference Range Interpretation Comments Macrocyte (test code = 1+ *ABN*(02/27/2013 A Macrocyte) 02:55:00) [facility] HospitalNmegpayOKGERQRMWQ7273-24-65 07:55:00 Test Item Value Reference Range Interpretation Comments Segs (test code = Segs) 72.0 45.0-75.0 N [facility] HospitalNkgxnkqXZVTLKBTXT8968-15-31 07:55:00 Test Item Value Reference Range Interpretation Comments Monocytes (test code = Monocytes) 6.0 2.0-12.0 N [facility] HospitalUbxzaroDYCUNWBAJY6589-37-19 07:55:00 Test Item Value Reference Range Interpretation Comments Bands (test code = 10.0 See_Comment N [Automat ed message] The Bands) system which ge nerated this result transmit matteo reference range : <=11.0. The reference r katie was not used to interpr et this result as miesha l/abnormal. [facility] HospitalBjovoqiQLBIHBVSJZ5572-87-22 07:55:00 Test Item Value Reference Range Interpretation Comments Atypical Lymphs (test code = Atypical 0.0 N Lymphs) [facility] HospitalJayufpvKSLUWGHJIU0508-60-80 07:55:00 Test Item Value Reference Range Interpretation Comments Lymphocytes (test code = Lymphocytes) 12.0 20.0-40.0 L [facility] HospitalDcntpsaXJYOZMIFTC6334-57-11 07:55:00 Test Item Value Reference Range Interpretation Comments Lymphocytes # (test code = Lymphocytes 1.7 1.0-5.5 N #) [facility] HospitalEkpoldsZYZHDXKQSK5864-74-28 07:55:00 Test Item Value Reference Range Interpretation Comments Monocytes # (test code 0.9 See_Comment H [Aut omated message] The = Monocytes #) system which generated this result tra nsmitted reference range : <=0.8. The reference r katie was not used to int erpret this result as normal/abnormal . [facility] HospitalSihbvxzDEWWCZVBKB5753-34-48 07:55:00 Test Item Value Reference Range Interpretation Comments Segs-Bands # (test code = Segs-Bands #) 11.7 1.5-8.1 H [facility] HospitalFmqshfxXMZSGAJJK4928-71-28 07:55:00 Test Item Value Reference Range Interpretation Comments eGFR (test code = eGFR) 61 [facility] HospitalKhhilbjCOWRPOIKR5107-10-93 07:55:00 Test Item Value Reference Range Interpretation Comments Calcium Lvl (test code = Calcium Lvl) 8.1 8.5-10.5 L [facility] HospitalUmkaiucNMJIRUYYI8130-18-87 07:55:00 Test Item Value Reference Range Interpretation Comments AGAP (test code = AGAP) 17.4 10.0-20.0 N [facility] HospitalSxwerimKAVDDFSKB4419-63-45 07:55:00 Test Item Value Reference Range Interpretation Comments Sodium Lvl (test code = Sodium Lvl) 147 135-145 H [facility] HospitalXcgbtcvDHXHNPQBC8286-14-75 07:55:00 Test Item Value Reference Range Interpretation Comments Potassium Lvl (test code = Potassium 3.4 3.5-5.1 L Lvl) [facility] HospitalHlhxbrbQREJWCFXE1146-75-95 07:55:00 Test Item Value Reference Range Interpretation Comments Creatinine Lvl (test code = Creatinine 1.0 0.5-1.4 N Lvl) [facility] HospitalJptnhvwAMLNJLRTI6792-40-36 07:55:00 Test Item Value Reference Range Interpretation Comments Chloride Lvl (test code = Chloride Lvl) 104 95-109 N [facility] HospitalGgpvkkyMRTBPFTIP8535-46-07 07:55:00 Test Item Value Reference Range Interpretation Comments CO2 (test code = CO2) 29 24-32 N [facility] HospitalRbxnhjqCVLCEKMYL1817-36-00 07:55:00 Test Item Value Reference Range Interpretation Comments BUN (test code = BUN) 25 7-22 H [facility] HospitalDqcbauwNUYYDDZEA1550-18-29 07:55:00 Test Item Value Reference Range Interpretation Comments Glucose Lvl (test code = Glucose Lvl) 96 70-99 N [facility] HospitalQqhjezeJJGURDQMWK5217-16-06 07:55:00 Test Item Value Reference Range Interpretation Comments RDW (test code = RDW) 17.3 11.5-14.5 H [facility] HospitalUngghxoQTFSRGDOQL8893-05-78 07:55:00 Test Item Value Reference Range Interpretation Comments Platelet (test code = Platelet) 249 133-450 N [facility] HospitalBdqpbzwTAICIQILPG6777-87-08 07:55:00 Test Item Value Reference Range Interpretation Comments MPV (test code = MPV) 7.4 7.4-10.4 N [facility] HospitalVfilmhiHFDJLGOJXK9625-09-79 07:55:00 Test Item Value Reference Range Interpretation Comments MCHC (test code = MCHC) 33.8 32.0-36.0 N [facility] HospitalShqkoqmRPMOZRVGIZ8504-49-09 07:55:00 Test Item Value Reference Range Interpretation Comments Hct (test code = Hct) 27.3 36.0-48.0 L [facility] HospitalKatakuvHJMVMLGPQR6926-14-72 07:55:00 Test Item Value Reference Range Interpretation Comments MCV (test code = MCV) 93.3 81.0-99.0 N [facility] HospitalSxwaxtrPIIQEWVRBA8529-46-68 07:55:00 Test Item Value Reference Range Interpretation Comments MCH (test code = MCH) 31.6 pg 27.0-31.0 H [facility] HospitalYnwjhtzTHMOFWCKLF4233-23-41 07:55:00 Test Item Value Reference Range Interpretation Comments Hgb (test code = Hgb) 9.3 12.0-16.0 L [facility] HospitalFuuyuvbZEXVWFHASE8497-57-48 07:55:00 Test Item Value Reference Range Interpretation Comments WBC (test code = WBC) 14.3 3.7-10.4 H [facility] HospitalWdhurckDBGESOYAQO5738-65-83 07:55:00 Test Item Value Reference Range Interpretation Comments RBC (test code = RBC) 2.93 4.20-5.40 L [facility] HospitalZhegiwnKITAQYFEOB4323-70-86 07:55:00 Test Item Value Reference Range Interpretation Comments Large Plt (test code = Slight *ABN*(02/27/2013 A Large Plt) 02:55:00) [facility] HospitalCblmeyrTPEBFXBYQR4336-63-41 07:55:00 Test Item Value Reference Range Interpretation Comments Hypochrom (test code = Slight (02/27/2013 N Hypochrom) 02:55:00) [facility] HospitalRdaciahZWVFAEGFWO9876-44-65 07:55:00 Test Item Value Reference Range Interpretation Comments Polychrom (test code = Slight (02/27/2013 N Polychrom) 02:55:00) [facility] HospitalOevaxoqIMDICNJANV9731-32-99 07:55:00 Test Item Value Reference Range Interpretation Comments Anisocyte (test code = 1+ *ABN*(02/27/2013 A Anisocyte) 02:55:00) [facility] HospitalBexebszYHCPAIHDJV3818-78-60 07:55:00 Test Item Value Reference Range Interpretation Comments Plt Morph (test code = Normal (02/27/2013 N Plt Morph) 02:55:00) [facility] HospitalOiyznyjEFIQCPOYEI0336-76-78 07:55:00 Test Item Value Reference Range Interpretation Comments Macrocyte (test code = 1+ *ABN*(02/27/2013 A Macrocyte) 02:55:00) [facility] HospitalWxmhvjzIDNIXPTZKW2853-67-37 07:55:00 Test Item Value Reference Range Interpretation Comments Segs (test code = Segs) 72.0 45.0-75.0 N [facility] HospitalIsoocgoNBLDEANKCC3329-85-83 07:55:00 Test Item Value Reference Range Interpretation Comments Monocytes (test code = Monocytes) 6.0 2.0-12.0 N [facility] HospitalMzltfblAXSRCOLQNW0623-62-05 07:55:00 Test Item Value Reference Range Interpretation Comments Bands (test code = 10.0 See_Comment N [Automat ed message] The Bands) system which ge nerated this result transmit matteo reference range : <=11.0. The reference r katie was not used to interpr et this result as miesha l/abnormal. [facility] HospitalPuxfnyaBCEBASHPVZ4556-26-21 07:55:00 Test Item Value Reference Range Interpretation Comments Atypical Lymphs (test code = Atypical 0.0 N Lymphs) [facility] HospitalUnqphovRZTOQGUIFU8676-65-32 07:55:00 Test Item Value Reference Range Interpretation Comments Lymphocytes (test code = Lymphocytes) 12.0 20.0-40.0 L [facility] HospitalYvwjeueNFNAFCNHKE0055-62-70 07:55:00 Test Item Value Reference Range Interpretation Comments Lymphocytes # (test code = Lymphocytes 1.7 1.0-5.5 N #) [facility] HospitalUeiftwcMKBYEKTOKR2551-87-88 07:55:00 Test Item Value Reference Range Interpretation Comments Monocytes # (test code 0.9 See_Comment H [Aut omated message] The = Monocytes #) system which generated this result tra nsmitted reference range : <=0.8. The reference r katie was not used to int erpret this result as normal/abnormal . [facility] HospitalNprwqliVAAQOQREWR9652-62-05 07:55:00 Test Item Value Reference Range Interpretation Comments Segs-Bands # (test code = Segs-Bands #) 11.7 1.5-8.1 H [facility] HospitalXnqqpvmXKFLRJZUE0856-33-32 07:55:00 Test Item Value Reference Range Interpretation Comments eGFR (test code = eGFR) 61 [facility] HospitalDglpchoIKTHDXNGY5723-26-19 07:55:00 Test Item Value Reference Range Interpretation Comments Calcium Lvl (test code = Calcium Lvl) 8.1 8.5-10.5 L [facility] HospitalPmzydusNPWNWPEXG9311-04-04 07:55:00 Test Item Value Reference Range Interpretation Comments AGAP (test code = AGAP) 17.4 10.0-20.0 N [facility] HospitalRfjuhegAESWYUJVW8088-76-46 07:55:00 Test Item Value Reference Range Interpretation Comments Sodium Lvl (test code = Sodium Lvl) 147 135-145 H [facility] HospitalQnkpbplKJYMHPBZH7970-84-73 07:55:00 Test Item Value Reference Range Interpretation Comments Potassium Lvl (test code = Potassium 3.4 3.5-5.1 L Lvl) [facility] HospitalDcvrqzjNHJURUNZX3710-17-00 07:55:00 Test Item Value Reference Range Interpretation Comments Creatinine Lvl (test code = Creatinine 1.0 0.5-1.4 N Lvl) [facility] HospitalAswvvkiITMJELFTB3744-63-44 07:55:00 Test Item Value Reference Range Interpretation Comments Chloride Lvl (test code = Chloride Lvl) 104 95-109 N [facility] HospitalWlayqblXEAQJKJTF7099-30-26 07:55:00 Test Item Value Reference Range Interpretation Comments CO2 (test code = CO2) 29 24-32 N [facility] HospitalEazlstwAJCMOPXEW9488-79-37 07:55:00 Test Item Value Reference Range Interpretation Comments BUN (test code = BUN) 25 7-22 H [facility] HospitalRdfhbprQJHJMIVGC9792-03-43 07:55:00 Test Item Value Reference Range Interpretation Comments Glucose Lvl (test code = Glucose Lvl) 96 70-99 N [facility] HospitalCbskwcmUVNGMKDPJB4966-61-78 07:55:00 Test Item Value Reference Range Interpretation Comments RDW (test code = RDW) 17.3 11.5-14.5 H [facility] HospitalDeksguuGCOZQTKTGJ2479-65-03 07:55:00 Test Item Value Reference Range Interpretation Comments Platelet (test code = Platelet) 249 133-450 N [facility] HospitalPmbehfuTXQJTXBWBW8312-19-61 07:55:00 Test Item Value Reference Range Interpretation Comments MPV (test code = MPV) 7.4 7.4-10.4 N [facility] HospitalBqrokvjMRECKZXVHF1640-20-01 07:55:00 Test Item Value Reference Range Interpretation Comments MCHC (test code = MCHC) 33.8 32.0-36.0 N [facility] HospitalEyiofcvXGPSQAEBTS4042-52-78 07:55:00 Test Item Value Reference Range Interpretation Comments Hct (test code = Hct) 27.3 36.0-48.0 L [facility] HospitalVcgzcqxINLGCVWPPV9722-46-92 07:55:00 Test Item Value Reference Range Interpretation Comments MCV (test code = MCV) 93.3 81.0-99.0 N [facility] HospitalTmkzewfHLASCYQCDF0238-56-10 07:55:00 Test Item Value Reference Range Interpretation Comments MCH (test code = MCH) 31.6 pg 27.0-31.0 H [facility] HospitalPousttzFRDRXJYPEZ9275-43-69 07:55:00 Test Item Value Reference Range Interpretation Comments Hgb (test code = Hgb) 9.3 12.0-16.0 L [facility] HospitalFpfpxquTJIDQEIJZF8223-00-95 07:55:00 Test Item Value Reference Range Interpretation Comments WBC (test code = WBC) 14.3 3.7-10.4 H [facility] HospitalPszlafdQFPKMKBMLV2137-06-55 07:55:00 Test Item Value Reference Range Interpretation Comments RBC (test code = RBC) 2.93 4.20-5.40 L [facility] HospitalLrhyoqrZWDRSORFGE9626-08-15 07:55:00 Test Item Value Reference Range Interpretation Comments Large Plt (test code = Slight *ABN*(02/27/2013 A Large Plt) 02:55:00) [facility] HospitalZotwhijTEGQEDGBOZ7239-81-60 07:55:00 Test Item Value Reference Range Interpretation Comments Hypochrom (test code = Slight (02/27/2013 N Hypochrom) 02:55:00) [facility] HospitalAtdarxqORIBDCXAYJ5261-97-98 07:55:00 Test Item Value Reference Range Interpretation Comments Polychrom (test code = Slight (02/27/2013 N Polychrom) 02:55:00) [facility] HospitalCoudifnQMWZFJEVIN9607-92-19 07:55:00 Test Item Value Reference Range Interpretation Comments Anisocyte (test code = 1+ *ABN*(02/27/2013 A Anisocyte) 02:55:00) [facility] HospitalAboqvpzZFVPGJVEHM1014-59-44 07:55:00 Test Item Value Reference Range Interpretation Comments Plt Morph (test code = Normal (02/27/2013 N Plt Morph) 02:55:00) [facility] HospitalEbtxqtlTSGBPNKQKK9457-81-51 07:55:00 Test Item Value Reference Range Interpretation Comments Macrocyte (test code = 1+ *ABN*(02/27/2013 A Macrocyte) 02:55:00) [facility]OzmzbinGRFLDDDDUA6521-61-53 07:55:00 Test Item Value Reference Range Interpretation Comments Segs (test code = Segs) 72.0 45.0-75.0 N [facility] HospitalIchejatVZUWKJXHTL9164-70-98 07:55:00 Test Item Value Reference Range Interpretation Comments Monocytes (test code = Monocytes) 6.0 2.0-12.0 N [facility] HospitalSfpseooRPEUVOEUSJ4377-21-40 07:55:00 Test Item Value Reference Range Interpretation Comments Bands (test code = 10.0 See_Comment N [Automat ed message] The Bands) system which ge nerated this result transmit matteo reference range : <=11.0. The reference r katie was not used to interpr et this result as miesha l/abnormal. [facility] HospitalWdolrrlIIUOYHWTPJ9562-86-74 07:55:00 Test Item Value Reference Range Interpretation Comments Atypical Lymphs (test code = Atypical 0.0 N Lymphs) [facility] HospitalHvnqmyrAGIUFNVUUZ8110-02-23 07:55:00 Test Item Value Reference Range Interpretation Comments Lymphocytes (test code = Lymphocytes) 12.0 20.0-40.0 L [facility] HospitalIvslkfoWIVEZLTKDH8100-36-17 07:55:00 Test Item Value Reference Range Interpretation Comments Lymphocytes # (test code = Lymphocytes 1.7 1.0-5.5 N #) [facility] HospitalVecwigrNRTDQHCLTS9383-16-21 07:55:00 Test Item Value Reference Range Interpretation Comments Monocytes # (test code 0.9 See_Comment H [Aut omated message] The = Monocytes #) system which generated this result tra nsmitted reference range : <=0.8. The reference r katie was not used to int erpret this result as normal/abnormal . [facility] HospitalBwgezwtQYSXWPIQEY9278-44-16 07:55:00 Test Item Value Reference Range Interpretation Comments Segs-Bands # (test code = Segs-Bands #) 11.7 1.5-8.1 [facility] HospitalVubvmigACAGPVIBH7405-52-50 07:55:00 Test Item Value Reference Range Interpretation Comments eGFR (test code = eGFR) 61 [facility] HospitalQtdzpqhSKJOBHWEF3067-60-28 07:55:00 Test Item Value Reference Range Interpretation Comments Calcium Lvl (test code = Calcium Lvl) 8.1 8.5-10.5 L [facility] HospitalHskvemvSCHJOKMYW5635-27-40 07:55:00 Test Item Value Reference Range Interpretation Comments AGAP (test code = AGAP) 17.4 10.0-20.0 N [facility] HospitalQgqrrpxGMDIQKIBM1012-24-97 07:55:00 Test Item Value Reference Range Interpretation Comments Sodium Lvl (test code = Sodium Lvl) 147 135-145 H [facility] HospitalBsmhzdiGLQANJMHV9319-30-08 07:55:00 Test Item Value Reference Range Interpretation Comments Potassium Lvl (test code = Potassium 3.4 3.5-5.1 L Lvl) [facility] HospitalSgkzhkrJTIPSZEFR1472-91-46 07:55:00 Test Item Value Reference Range Interpretation Comments Creatinine Lvl (test code = Creatinine 1.0 0.5-1.4 N Lvl) [facility] HospitalKqgsqeiXGJTBAMKF3595-64-53 07:55:00 Test Item Value Reference Range Interpretation Comments Chloride Lvl (test code = Chloride Lvl) 104 95-109 N [facility] HospitalVsystuvNSOWDOEIX7482-94-65 07:55:00 Test Item Value Reference Range Interpretation Comments CO2 (test code = CO2) 29 24-32 N [facility] HospitalJonlwbtUQXEHDUIR2928-63-03 07:55:00 Test Item Value Reference Range Interpretation Comments BUN (test code = BUN) 25 7-22 H [facility] HospitalNlaoifvXNLGVQMFL8283-18-36 07:55:00 Test Item Value Reference Range Interpretation Comments Glucose Lvl (test code = Glucose Lvl) 96 70-99 N [facility] HospitalHrgxvtzUPMXTXZJHJ0370-06-62 07:55:00 Test Item Value Reference Range Interpretation Comments RDW (test code = RDW) 17.3 11.5-14.5 H [facility] HospitalGigruuzCPLYNWALHA5361-18-00 07:55:00 Test Item Value Reference Range Interpretation Comments Platelet (test code = Platelet) 249 133-450 N [facility] HospitalYekckpjNOZAPAASJN7300-31-00 07:55:00 Test Item Value Reference Range Interpretation Comments MPV (test code = MPV) 7.4 7.4-10.4 N [facility] HospitalNgxvlmcFJJJRZYUJI3964-92-75 07:55:00 Test Item Value Reference Range Interpretation Comments MCHC (test code = MCHC) 33.8 32.0-36.0 N [facility] HospitalXmuoxvhNUGPCETUOM0752-56-34 07:55:00 Test Item Value Reference Range Interpretation Comments Hct (test code = Hct) 27.3 36.0-48.0 L [facility] HospitalHrquivhNZKGIFOMNW1932-57-94 07:55:00 Test Item Value Reference Range Interpretation Comments MCV (test code = MCV) 93.3 81.0-99.0 N [facility] HospitalFsakpnaFCPITCWYQU2382-91-88 07:55:00 Test Item Value Reference Range Interpretation Comments MCH (test code = MCH) 31.6 pg 27.0-31.0 H [facility] HospitalLfsnnanWTAIPALIUD3186-54-07 07:55:00 Test Item Value Reference Range Interpretation Comments Hgb (test code = Hgb) 9.3 12.0-16.0 L [facility] HospitalQqyznhwAWAXHYELRL5719-68-03 07:55:00 Test Item Value Reference Range Interpretation Comments WBC (test code = WBC) 14.3 3.7-10.4 H [facility] HospitalRlnmarpNQIRZGNYWP4139-77-56 07:55:00 Test Item Value Reference Range Interpretation Comments RBC (test code = RBC) 2.93 4.20-5.40 L [facility] HospitalFcznokxKNKKZWMUJX6904-93-84 07:55:00 Test Item Value Reference Range Interpretation Comments Large Plt (test code = Slight *ABN*(02/27/2013 A Large Plt) 02:55:00) [facility] HospitalUhodqykMLLFSKDPPH3745-97-79 07:55:00 Test Item Value Reference Range Interpretation Comments Hypochrom (test code = Slight (02/27/2013 N Hypochrom) 02:55:00) [facility] HospitalDkcdgriAMMISJVDUH6767-39-01 07:55:00 Test Item Value Reference Range Interpretation Comments Polychrom (test code = Slight (02/27/2013 N Polychrom) 02:55:00) [facility] HospitalXnockovLTHDQZETWK1956-06-84 07:55:00 Test Item Value Reference Range Interpretation Comments Anisocyte (test code = 1+ *ABN*(02/27/2013 A Anisocyte) 02:55:00) [facility] HospitalBlcgiymNMRYQEIFGJ3536-92-95 07:55:00 Test Item Value Reference Range Interpretation Comments Plt Morph (test code = Normal (02/27/2013 N Plt Morph) 02:55:00) [facility] HospitalTnwabilLFCWNWYQJG4085-32-02 07:55:00 Test Item Value Reference Range Interpretation Comments Macrocyte (test code = 1+ *ABN*(02/27/2013 A Macrocyte) 02:55:00) [facility] HospitalBcgbcxdFSFRZAOSDK8990-13-54 07:55:00 Test Item Value Reference Range Interpretation Comments Segs (test code = Segs) 72.0 45.0-75.0 N [facility] HospitalMcepzvlQUEQOEVXUZ9147-20-63 07:55:00 Test Item Value Reference Range Interpretation Comments Monocytes (test code = Monocytes) 6.0 2.0-12.0 N [facility] HospitalSeijvhpAUQFYGMXWZ6181-16-94 07:55:00 Test Item Value Reference Range Interpretation Comments Bands (test code = 10.0 See_Comment N [Automat ed message] The Bands) system which ge nerated this result transmit matteo reference range : <=11.0. The reference r katie was not used to interpr et this result as miesha l/abnormal. [facility] HospitalHwpdhrhIRYBMKUPMD4074-48-34 07:55:00 Test Item Value Reference Range Interpretation Comments Atypical Lymphs (test code = Atypical 0.0 N Lymphs) [facility] HospitalDpavrheLCRUDUBAJR5175-89-50 07:55:00 Test Item Value Reference Range Interpretation Comments Lymphocytes (test code = Lymphocytes) 12.0 20.0-40.0 L [facility] HospitalSpgsrcuYEJQEATDEC9076-87-58 07:55:00 Test Item Value Reference Range Interpretation Comments Lymphocytes # (test code = Lymphocytes 1.7 1.0-5.5 N #) [facility] HospitalOeetxvvPNPLPATSDZ8044-62-13 07:55:00 Test Item Value Reference Range Interpretation Comments Monocytes # (test code 0.9 See_Comment H [Aut omated message] The = Monocytes #) system which generated this result tra nsmitted reference range : <=0.8. The reference r katie was not used to int erpret this result as normal/abnormal . [facility] HospitalIsevvybABAASMPQFN1687-72-49 07:55:00 Test Item Value Reference Range Interpretation Comments Segs-Bands # (test code = Segs-Bands #) 11.7 1.5-8.1 H [facility] HospitalEplpegwVEFOZIDRC0940-42-19 07:55:00 Test Item Value Reference Range Interpretation Comments eGFR (test code = eGFR) 61 [facility] HospitalZnavjxjSSVMVOSGH4844-91-58 07:55:00 Test Item Value Reference Range Interpretation Comments Calcium Lvl (test code = Calcium Lvl) 8.1 8.5-10.5 L [facility] HospitalBstqeltVZJYMRDHV0150-63-85 07:55:00 Test Item Value Reference Range Interpretation Comments AGAP (test code = AGAP) 17.4 10.0-20.0 N [facility] HospitalTmqlnppVAXELINJX0085-03-76 07:55:00 Test Item Value Reference Range Interpretation Comments Sodium Lvl (test code = Sodium Lvl) 147 135-145 H [facility] HospitalJxmcxbzWDMWBAFUL6649-76-51 07:55:00 Test Item Value Reference Range Interpretation Comments Potassium Lvl (test code = Potassium 3.4 3.5-5.1 L Lvl) [facility] HospitalYbfhgvqUEFZZXGBW9085-74-23 07:55:00 Test Item Value Reference Range Interpretation Comments Creatinine Lvl (test code = Creatinine 1.0 0.5-1.4 N Lvl) [facility] HospitalOieeiebODNKORFFP9005-52-08 07:55:00 Test Item Value Reference Range Interpretation Comments Chloride Lvl (test code = Chloride Lvl) 104 95-109 N [facility] HospitalHsufblwJIMEZYZTT3601-90-99 07:55:00 Test Item Value Reference Range Interpretation Comments CO2 (test code = CO2) 29 24-32 N [facility] HospitalKehcodwJNTLTJQVZ9536-74-93 07:55:00 Test Item Value Reference Range Interpretation Comments BUN (test code = BUN) 25 7-22 H [facility] HospitalXcifdzzWWOWNSUOT0324-16-11 07:55:00 Test Item Value Reference Range Interpretation Comments Glucose Lvl (test code = Glucose Lvl) 96 70-99 N [facility] HospitalDbhhdmcXXDPZUFQZQ4269-46-24 07:55:00 Test Item Value Reference Range Interpretation Comments RDW (test code = RDW) 17.3 11.5-14.5 H [facility] HospitalMjfxhqlFHIXVQOADL8899-94-68 07:55:00 Test Item Value Reference Range Interpretation Comments Platelet (test code = Platelet) 249 133-450 N [facility] HospitalCnainzzKXEXWWGOQX2453-86-11 07:55:00 Test Item Value Reference Range Interpretation Comments MPV (test code = MPV) 7.4 7.4-10.4 N [facility] HospitalJoaspwzMHEZFUVRWW1324-39-54 07:55:00 Test Item Value Reference Range Interpretation Comments MCHC (test code = MCHC) 33.8 32.0-36.0 N [facility] HospitalCweyqpeUWZMEDKTPT3229-22-84 07:55:00 Test Item Value Reference Range Interpretation Comments Hct (test code = Hct) 27.3 36.0-48.0 L [facility] HospitalKjkcyhmTWALLSEWJD2310-82-65 07:55:00 Test Item Value Reference Range Interpretation Comments MCV (test code = MCV) 93.3 81.0-99.0 N [facility] HospitalHejkrsuUXULAVZRZC9204-48-92 07:55:00 Test Item Value Reference Range Interpretation Comments MCH (test code = MCH) 31.6 pg 27.0-31.0 H [facility] HospitalIhbizveWMTJQODURE1639-74-31 07:55:00 Test Item Value Reference Range Interpretation Comments Hgb (test code = Hgb) 9.3 12.0-16.0 L [facility] HospitalGmcxvdeULXHMIMIRQ0602-58-57 07:55:00 Test Item Value Reference Range Interpretation Comments WBC (test code = WBC) 14.3 3.7-10.4 H [facility] HospitalDcpjstjUXYBERQSEX9475-77-52 07:55:00 Test Item Value Reference Range Interpretation Comments RBC (test code = RBC) 2.93 4.20-5.40 L [facility] HospitalTzdvofaPSJRSWMZRR7448-10-14 07:55:00 Test Item Value Reference Range Interpretation Comments Large Plt (test code = Slight *ABN*(02/27/2013 A Large Plt) 02:55:00) [place] 464973-09-03 07:55:00 Test Item Value Reference Range Interpretation Comments Hypochrom (test code = Slight (02/27/2013 N Hypochrom) 02:55:00) [facility] HospitalZqfdxtmAZSKRXAWMH3139-89-95 07:55:00 Test Item Value Reference Range Interpretation Comments Polychrom (test code = Slight (02/27/2013 N Polychrom) 02:55:00) [facility] HospitalMbejayfXNDZENYQED2099-82-08 07:55:00 Test Item Value Reference Range Interpretation Comments Anisocyte (test code = 1+ *ABN*(02/27/2013 A Anisocyte) 02:55:00) [facility] HospitalCzoorhqRZQRMEJODX4710-93-66 07:55:00 Test Item Value Reference Range Interpretation Comments Plt Morph (test code = Normal (02/27/2013 N Plt Morph) 02:55:00) [facility] HospitalAuljchhCAGBVXSYKB8152-16-59 07:55:00 Test Item Value Reference Range Interpretation Comments Macrocyte (test code = 1+ *ABN*(02/27/2013 A Macrocyte) 02:55:00) [facility] HospitalNahraehRGLUYRBGJN5296-03-33 07:55:00 Test Item Value Reference Range Interpretation Comments Segs (test code = Segs) 72.0 45.0-75.0 N [facility] HospitalAnjuouxYGUSRVANUC9107-71-79 07:55:00 Test Item Value Reference Range Interpretation Comments Monocytes (test code = Monocytes) 6.0 2.0-12.0 N [facility] HospitalLbwpybsOSQKZXWJCK1673-71-03 07:55:00 Test Item Value Reference Range Interpretation Comments Bands (test code = 10.0 See_Comment N [Automat ed message] The Bands) system which ge nerated this result transmit matteo reference range : <=11.0. The reference r katie was not used to interpr et this result as miesha l/abnormal. [facility] HospitalQxluxykEYYMRXQFSO3220-12-37 07:55:00 Test Item Value Reference Range Interpretation Comments Atypical Lymphs (test code = Atypical 0.0 N Lymphs) [facility] HospitalAsjwsavOZUINBRVIV9856-39-65 07:55:00 Test Item Value Reference Range Interpretation Comments Lymphocytes (test code = Lymphocytes) 12.0 20.0-40.0 L [facility] HospitalZvfdtriWEJAVCFPMT7007-28-71 07:55:00 Test Item Value Reference Range Interpretation Comments Lymphocytes # (test code = Lymphocytes 1.7 1.0-5.5 N #) [facility] HospitalHiibtkrSPWBATUPCM4608-49-69 07:55:00 Test Item Value Reference Range Interpretation Comments Monocytes # (test code 0.9 See_Comment H [Aut omated message] The = Monocytes #) system which generated this result tra nsmitted reference range : <=0.8. The reference r katie was not used to int erpret this result as normal/abnormal . [facility] HospitalVyilvhgFSLJDLTJEB6299-44-63 07:55:00 Test Item Value Reference Range Interpretation Comments Segs-Bands # (test code = Segs-Bands #) 11.7 1.5-8.[address] [facility]BywzogrJopfgedpditl2538-41-25 03:00:26 Test Item Value Reference Range Interpretation Comments Culture: Catheter Tip (test code = Culture: Catheter Tip) [facility] CenterMpuxmsuGgqaaznxmsac4852-47-40 03:00:26 Test Item Value Reference Range Interpretation Comments Culture: Catheter Tip (test code = Culture: Catheter Tip) [facility] CenterPezdfzqPoyndfefdlmt9981-17-01 03:00:26 Test Item Value Reference Range Interpretation Comments Culture: Catheter Tip (test code = Culture: Catheter Tip) [facility] CenterJvynckiYyerjhjimwmh6927-81-21 03:00:26 Test Item Value Reference Range Interpretation Comments Culture: Catheter Tip (test code = Culture: Catheter Tip) [facility] CenterQlbiluhIjpdwydnzhof1548-36-41 03:00:26 Test Item Value Reference Range Interpretation Comments Culture: Catheter Tip (test code = Culture: Catheter Tip) [facility] CenterNxsqjuaNdvggkztiqpf7618-38-01 03:00:26 Test Item Value Reference Range Interpretation Comments Culture: Catheter Tip (test code = Culture: Catheter Tip) [facility] CenterJweuymgXazfziirxhnp6638-17-63 03:00:00 Test Item Value Reference Range Interpretation Comments Culture: Catheter Tip (test code = Culture: Catheter Tip) [facility] CenterSlwkkdwIkyqddrabltm3162-91-49 03:00:00 Test Item Value Reference Range Interpretation Comments Culture: Catheter Tip (test code = Culture: Catheter Tip) [facility] CenterEoryxdzUzzwnvlagyac8541-87-85 03:00:00 Test Item Value Reference Range Interpretation Comments Culture: Catheter Tip (test code = Culture: Catheter Tip) [facility] CenterEbslokoZwlxgczzhrge0523-41-84 03:00:00 Test Item Value Reference Range Interpretation Comments Culture: Catheter Tip (test code = Culture: Catheter Tip) [facility] CenterSiedsszDzwoolcldfys4223-41-45 03:00:00 Test Item Value Reference Range Interpretation Comments Culture: Catheter Tip (test code = Culture: Catheter Tip) [facility] CenterYlhmgwaZaijpzohlenx8498-18-63 03:00:00 Test Item Value Reference Range Interpretation Comments Culture: Catheter Tip (test code = Culture: Catheter Tip) [facility]RbseoroQXXSGRRIR7338-91-04 20:10:15 Test Item Value Reference Range Interpretation Comments Vanco Tr TND (test code = Vanco Tr TND) 1400 [facility] HospitalVeefcfnRIEAWUGKU1677-40-56 20:10:15 Test Item Value Reference Range Interpretation Comments Vanco Tr (test code = Vanco Tr) 18.9 [facility] HospitalXmunfipELDGYEUVJ5061-71-10 20:10:15 Test Item Value Reference Range Interpretation Comments Vanco Tr TND (test code = Vanco Tr TND) 1400 [facility] HospitalTsevkjxBZSSTKBMI5346-67-62 20:10:15 Test Item Value Reference Range Interpretation Comments Vanco Tr (test code = Vanco Tr) 18.9 [facility] HospitalJrpytgiXYVHRKORL7717-13-43 20:10:15 Test Item Value Reference Range Interpretation Comments Vanco Tr TND (test code = Vanco Tr TND) 1400 [facility] HospitalNsexgesLAINCIFCL6592-27-60 20:10:15 Test Item Value Reference Range Interpretation Comments Vanco Tr (test code = Vanco Tr) 18.9 [facility] HospitalWmtgfneEYUQITOXL3954-23-10 20:10:15 Test Item Value Reference Range Interpretation Comments Vanco Tr TND (test code = Vanco Tr TND) 1400 [facility] HospitalQszoifvCJNGOVPZX6564-40-92 20:10:15 Test Item Value Reference Range Interpretation Comments Vanco Tr (test code = Vanco Tr) 18.9 [facility] HospitalGcntehjBIJOAIAQW2309-51-54 20:10:15 Test Item Value Reference Range Interpretation Comments Vanco Tr TND (test code = Vanco Tr TND) 1400 [facility] HospitalZouigssGGAUCPPOC3179-90-26 20:10:15 Test Item Value Reference Range Interpretation Comments Vanco Tr (test code = Vanco Tr) 18.9 [facility] HospitalCzcvemaKRMODXLOS5867-58-25 20:10:15 Test Item Value Reference Range Interpretation Comments Vanco Tr TND (test code = Vanco Tr TND) 1400 [facility] HospitalPtaavoaONPVHSSHI8538-69-23 20:10:15 Test Item Value Reference Range Interpretation Comments Vanco Tr (test code = Vanco Tr) 18.9 [facility]FpdkgehABMKVNYKN9061-13-78 18:40:32 Test Item Value Reference Range Interpretation Comments PS Art (test code = PS Art) 12 [facility] HospitalQpusekkOIERQCOYP3503-32-89 18:40:32 Test Item Value Reference Range Interpretation Comments pH Art (test code = pH Art) 7.51 7.35-7.45 H [facility] HospitalHqylizcGXSZBLSDU0230-94-72 18:40:32 Test Item Value Reference Range Interpretation Comments pCO2 Art (test code = pCO2 Art) 33 35-45 L [facility] HospitalWytykrqDHPUXYGXK1450-32-13 18:40:32 Test Item Value Reference Range Interpretation Comments pO2 Art (test code = pO2 Art) 79 80-100 L [facility] HospitalZewucmyORFIIXCAT1465-03-35 18:40:32 Test Item Value Reference Range Interpretation Comments HCO3 Art (test code = HCO3 Art) 26 22-26 N [facility] HospitalHegnsmzSSXLFMWJN9235-94-92 18:40:32 Test Item Value Reference Range Interpretation Comments BE Art (test code = 4 See_Comment H [Automa matteo message] The BE Art) system which ge nerated this result transmit matteo reference range : <=2. The reference range was not used to interpr et this result as miesha l/abnormal. [facility] HospitalSbbuwubBVUKBYFKV6749-66-31 18:40:32 Test Item Value Reference Range Interpretation Comments O2 Sat Art (test code = O2 Sat Art) 97.0 95.0-100.0 N [facility] HospitalDadvuxaGBOSGVOVZ5406-84-93 18:40:32 Test Item Value Reference Range Interpretation Comments Site Art (test code = Right Ra (02/26/2013 N Site Art) 13:40:32) [facility] HospitalMihhchyIEZAUBWLV9122-84-09 18:40:32 Test Item Value Reference Range Interpretation Comments Temp Art (test code = Temp Art) 37.0 [facility] HospitalUwxjnitZDNKUAVDA9996-04-15 18:40:32 Test Item Value Reference Range Interpretation Comments Allens Art (test code Positive (02/26/2013 N = Allens Art) 13:40:32) [facility] HospitalKzripujPHCFMCXLT0562-75-21 18:40:32 Test Item Value Reference Range Interpretation Comments Mode Art (test code = Cpap (02/26/2013 N Mode Art) 13:40:32) [facility] HospitalUjikwksBAPUFRXDB6845-33-75 18:40:32 Test Item Value Reference Range Interpretation Comments FiO2 Art (test code = FiO2 Art) 40.0 [facility] HospitalBwtxcmvAKNBDVTBY5111-06-94 18:40:32 Test Item Value Reference Range Interpretation Comments PEEP Art (test code = PEEP Art) 7.0 [facility] HospitalOuxghskLCKXBOBZX9108-95-70 18:40:32 Test Item Value Reference Range Interpretation Comments PS Art (test code = PS Art) 12 [facility] HospitalLmgmfdcDQSOBAUFF0626-23-53 18:40:32 Test Item Value Reference Range Interpretation Comments pH Art (test code = pH Art) 7.51 7.35-7.45 H [facility] HospitalMebmramFGUQJMWNA8508-13-56 18:40:32 Test Item Value Reference Range Interpretation Comments pCO2 Art (test code = pCO2 Art) 33 35-45 L [facility] HospitalJtpgoghZFYKCXLCV3944-15-03 18:40:32 Test Item Value Reference Range Interpretation Comments pO2 Art (test code = pO2 Art) 79 80-100 L [facility] HospitalFzokuznGXNLZHHHB3039-51-78 18:40:32 Test Item Value Reference Range Interpretation Comments HCO3 Art (test code = HCO3 Art) 26 22-26 N [facility] HospitalHkdwzdfMUYAWATKI9811-73-02 18:40:32 Test Item Value Reference Range Interpretation Comments BE Art (test code = 4 See_Comment H [Automa matteo message] The BE Art) system which ge nerated this result transmit matteo reference range : <=2. The reference range was not used to interpr et this result as miesha l/abnormal. [facility] HospitalMywjzoaVZMRHTOAM4483-22-75 18:40:32 Test Item Value Reference Range Interpretation Comments O2 Sat Art (test code = O2 Sat Art) 97.0 95.0-100.0 N [facility] HospitalZmyjxopQFJFRZCBC6817-45-60 18:40:32 Test Item Value Reference Range Interpretation Comments Site Art (test code = Right Ra (02/26/2013 N Site Art) 13:40:32) [facility] HospitalOobdevyRXWVWYLIX3379-99-67 18:40:32 Test Item Value Reference Range Interpretation Comments Temp Art (test code = Temp Art) 37.0 [facility] HospitalKbbkxasXWAPFUQLT5786-31-10 18:40:32 Test Item Value Reference Range Interpretation Comments Allens Art (test code Positive (02/26/2013 N = Allens Art) 13:40:32) [facility] HospitalIjlvkupFUJIOJCTJ5597-55-90 18:40:32 Test Item Value Reference Range Interpretation Comments Mode Art (test code = Cpap (02/26/2013 N Mode Art) 13:40:32) [facility] HospitalHfklaufVPTILJPEI7706-84-52 18:40:32 Test Item Value Reference Range Interpretation Comments FiO2 Art (test code = FiO2 Art) 40.0 [facility] HospitalBwzwconGYJHSSLHT6243-41-44 18:40:32 Test Item Value Reference Range Interpretation Comments PEEP Art (test code = PEEP Art) 7.0 [facility] HospitalUithpauUWSZGPZZD2742-85-02 18:40:32 Test Item Value Reference Range Interpretation Comments PS Art (test code = PS Art) 12 [facility] HospitalOonqrpsNFXNNFSPR7581-30-86 18:40:32 Test Item Value Reference Range Interpretation Comments pH Art (test code = pH Art) 7.51 7.35-7.45 H [facility] HospitalBqldnhnJBPLQDEZO4508-04-69 18:40:32 Test Item Value Reference Range Interpretation Comments pCO2 Art (test code = pCO2 Art) 33 35-45 L [facility] HospitalVormfzkLWIRNTXPM8881-62-38 18:40:32 Test Item Value Reference Range Interpretation Comments pO2 Art (test code = pO2 Art) 79 80-100 L [facility] HospitalMzixwoxMCNLHZKPO2557-76-85 18:40:32 Test Item Value Reference Range Interpretation Comments HCO3 Art (test code = HCO3 Art) 26 22-26 N [facility] HospitalLvkplslBRNTKBXOL8425-54-09 18:40:32 Test Item Value Reference Range Interpretation Comments BE Art (test code = 4 See_Comment H [Automa matteo message] The BE Art) system which ge nerated this result transmit matteo reference range : <=2. The reference range was not used to interpr et this result as miesha l/abnormal. [facility]DselmkxOHWJLXBMJ1755-37-79 18:40:32 Test Item Value Reference Range Interpretation Comments O2 Sat Art (test code = O2 Sat Art) 97.0 95.0-100.0 N [facility] HospitalLmfgohfEKVOKILQS3320-97-02 18:40:32 Test Item Value Reference Range Interpretation Comments Site Art (test code = Right Ra (02/26/2013 N Site Art) 13:40:32) [facility]AccehblLUPQKLEIU8125-36-06 18:40:32 Test Item Value Reference Range Interpretation Comments Temp Art (test code = Temp Art) 37.0 [facility] CulfdxmIQESYPZAH7858-77-41 18:40:32 Test Item Value Reference Range Interpretation Comments Allens Art (test code Positive (02/26/2013 N = Allens Art) 13:40:32) [facility] HospitalRfjatpaKKUTOVAEF9313-94-92 18:40:32 Test Item Value Reference Range Interpretation Comments Mode Art (test code = Cpap (02/26/2013 N Mode Art) 13:40:32) [facility] HospitalAlonllsXMRZNVWSP6243-86-53 18:40:32 Test Item Value Reference Range Interpretation Comments FiO2 Art (test code = FiO2 Art) 40.0 [facility] UsgpdyvAOEEUVDYE9007-17-36 18:40:32 Test Item Value Reference Range Interpretation Comments PEEP Art (test code = PEEP Art) 7.0 [facility] EytwwtcUTYTFSSEO4737-39-56 18:40:32 Test Item Value Reference Range Interpretation Comments PS Art (test code = PS Art) 12 [facility] HospitalJrsthzmCVTPLEODJ7442-81-49 18:40:32 Test Item Value Reference Range Interpretation Comments pH Art (test code = pH Art) 7.51 7.35-7.45 H [facility] HospitalGmqjzqnURUDROWPO9853-15-16 18:40:32 Test Item Value Reference Range Interpretation Comments pCO2 Art (test code = pCO2 Art) 33 35-45 L [facility] HospitalGotpwfcTFBUHJPJM7972-23-58 18:40:32 Test Item Value Reference Range Interpretation Comments pO2 Art (test code = pO2 Art) 79 80-100 L [facility] HospitalDdcjqpyXKAHIJSZR1319-90-13 18:40:32 Test Item Value Reference Range Interpretation Comments HCO3 Art (test code = HCO3 Art) 26 22-26 N [facility] HospitalQlmqxfuNUGOEOMXL6861-56-99 18:40:32 Test Item Value Reference Range Interpretation Comments BE Art (test code = 4 See_Comment H [Automa matteo message] The BE Art) system which ge nerated this result transmit matteo reference range : <=2. The reference range was not used to interpr et this result as miesha l/abnormal. [facility] HospitalTadtjnjDHHONMTEK7748-00-12 18:40:32 Test Item Value Reference Range Interpretation Comments O2 Sat Art (test code = O2 Sat Art) 97.0 95.0-100.0 N [facility] HospitalGgnqwcqCUAXMFYUZ0288-23-05 18:40:32 Test Item Value Reference Range Interpretation Comments Site Art (test code = Right Ra (02/26/2013 N Site Art) 13:40:32) [facility] HospitalWwrrrmzPVMOKKEYS2904-82-34 18:40:32 Test Item Value Reference Range Interpretation Comments Temp Art (test code = Temp Art) 37.0 [facility] HospitalUtmxagfMVNAAARJG4085-23-33 18:40:32 Test Item Value Reference Range Interpretation Comments Allens Art (test code Positive (02/26/2013 N = Allens Art) 13:40:32) [facility] HospitalUjuhutkNTTJOPIPN3696-89-29 18:40:32 Test Item Value Reference Range Interpretation Comments Mode Art (test code = Cpap (02/26/2013 N Mode Art) 13:40:32) [facility] HospitalMkfuoynXHPQMXHPV7192-51-82 18:40:32 Test Item Value Reference Range Interpretation Comments FiO2 Art (test code = FiO2 Art) 40.0 [facility] HospitalHutkwijXKENREKEM6833-68-84 18:40:32 Test Item Value Reference Range Interpretation Comments PEEP Art (test code = PEEP Art) 7.0 [facility] HospitalXfbesdzIREDTJJIF2412-32-41 18:40:32 Test Item Value Reference Range Interpretation Comments PS Art (test code = PS Art) 12 [facility] HospitalJiumwrsJQXWTACGU2359-61-61 18:40:32 Test Item Value Reference Range Interpretation Comments pH Art (test code = pH Art) 7.51 7.35-7.45 H [facility] HospitalOlvtoiwCESZDYRVK8879-65-94 18:40:32 Test Item Value Reference Range Interpretation Comments pCO2 Art (test code = pCO2 Art) 33 35-45 L [facility] HospitalDwrniguXBTZVENAY8164-04-57 18:40:32 Test Item Value Reference Range Interpretation Comments pO2 Art (test code = pO2 Art) 79 80-100 L [facility] HospitalFemceyjEMXUCWPAT3693-59-69 18:40:32 Test Item Value Reference Range Interpretation Comments HCO3 Art (test code = HCO3 Art) 26 22-26 N [facility] HospitalStqiuieJHULIBBOI1422-15-04 18:40:32 Test Item Value Reference Range Interpretation Comments BE Art (test code = 4 See_Comment H [Automa matteo message] The BE Art) system which ge nerated this result transmit matteo reference range : <=2. The reference range was not used to interpr et this result as miesha l/abnormal. [facility] HospitalNhwepsiKPCGOXTKT7881-86-74 18:40:32 Test Item Value Reference Range Interpretation Comments O2 Sat Art (test code = O2 Sat Art) 97.0 95.0-100.0 N [facility]YiyieatYOBRJKCXT5236-79-05 18:40:32 Test Item Value Reference Range Interpretation Comments Site Art (test code = Right Ra (02/26/2013 N Site Art) 13:40:32) [facility] HospitalUspdlquPOCRXGZYO8785-74-96 18:40:32 Test Item Value Reference Range Interpretation Comments Temp Art (test code = Temp Art) 37.0 [facility] HospitalLkqcmmhOVLQFYRAZ2523-82-08 18:40:32 Test Item Value Reference Range Interpretation Comments Allens Art (test code Positive (02/26/2013 N = Allens Art) 13:40:32) [facility] CenterFjwhcwrIDJSZLVWL2023-28-41 18:40:32 Test Item Value Reference Range Interpretation Comments Mode Art (test code = Cpap (02/26/2013 N Mode Art) 13:40:32) [facility] HospitalFqpgscdWVDIHWVLJ8296-63-19 18:40:32 Test Item Value Reference Range Interpretation Comments FiO2 Art (test code = FiO2 Art) 40.0 [facility] HospitalEknzprcDGLQKRAYD4001-70-53 18:40:32 Test Item Value Reference Range Interpretation Comments PEEP Art (test code = PEEP Art) 7.0 [facility] HospitalVwdyexmCXNNBHODQ1292-36-37 18:40:32 Test Item Value Reference Range Interpretation Comments PS Art (test code = PS Art) 12 [facility] HospitalJxhvrosANHDCQYUQ9838-10-34 18:40:32 Test Item Value Reference Range Interpretation Comments pH Art (test code = pH Art) 7.51 7.35-7.45 H [facility] HospitalOozecbsQVJIJPAVY5521-65-79 18:40:32 Test Item Value Reference Range Interpretation Comments pCO2 Art (test code = pCO2 Art) 33 35-45 L [facility] HospitalKtpirfyQARVDDYEM4740-40-19 18:40:32 Test Item Value Reference Range Interpretation Comments pO2 Art (test code = pO2 Art) 79 80-100 L [facility] WhhcjujPBVXHRUAT8405-92-72 18:40:32 Test Item Value Reference Range Interpretation Comments HCO3 Art (test code = HCO3 Art) 26 22-26 N [facility] HospitalIxjbngjUZDQIGEEF4329-91-53 18:40:32 Test Item Value Reference Range Interpretation Comments BE Art (test code = 4 See_Comment H [Automa matteo message] The BE Art) system which ge nerated this result transmit matteo reference range : <=2. The reference range was not used to interpr et this result as miesha l/abnormal. [facility] HospitalOjuluprZVADKFDSR5852-23-37 18:40:32 Test Item Value Reference Range Interpretation Comments O2 Sat Art (test code = O2 Sat Art) 97.0 95.0-100.0 N [facility] HospitalErlrddgQMDOJESXK9407-31-56 18:40:32 Test Item Value Reference Range Interpretation Comments Site Art (test code = Right Ra (02/26/2013 N Site Art) 13:40:32) [facility] HospitalQuwlfiqGMLJTDDOS5438-91-20 18:40:32 Test Item Value Reference Range Interpretation Comments Temp Art (test code = Temp Art) 37.0 [facility] HospitalKunrzolJDCETODUP2553-92-67 18:40:32 Test Item Value Reference Range Interpretation Comments Allens Art (test code Positive (02/26/2013 N = Allens Art) 13:40:32) [facility] HospitalEfuroikJPAIKPAGZ5180-90-40 18:40:32 Test Item Value Reference Range Interpretation Comments Mode Art (test code = Cpap (02/26/2013 N Mode Art) 13:40:32) [facility] HospitalDdtalwvERXIOYBCX5287-99-79 18:40:32 Test Item Value Reference Range Interpretation Comments FiO2 Art (test code = FiO2 Art) 40.0 [facility] HospitalFbcbtygOBJTDITUD4057-71-97 18:40:32 Test Item Value Reference Range Interpretation Comments PEEP Art (test code = PEEP Art) 7.0 [facility] HospitalWccicguXYNZNXHCS2496-88-52 10:10:26 Test Item Value Reference Range Interpretation Comments BE Art (test code = 0 See_Comment N [Automa matteo message] The BE Art) system which ge nerated this result transmit matteo reference range : <=2. The reference range was not used to interpr et this result as miesha l/abnormal. [facility] HospitalAhfezphALGIWMUGO1596-18-34 10:10:26 Test Item Value Reference Range Interpretation Comments HCO3 Art (test code = HCO3 Art) 23 22-26 N [facility] HospitalNogszjxWWMKZWNIH2141-94-73 10:10:26 Test Item Value Reference Range Interpretation Comments Temp Art (test code = Temp Art) 37.0 [facility] HospitalQcrkkbkOZLQYPHJO0438-81-09 10:10:26 Test Item Value Reference Range Interpretation Comments O2 Sat Art (test code = O2 Sat Art) 97.8 95.0-100.0 N [facility] HospitalBiyrnpkXFSFWOEYL6786-34-41 10:10:26 Test Item Value Reference Range Interpretation Comments Site Art (test code = A Line (02/26/2013 N Site Art) 05:10:26) [facility] HospitalMskfeaqAOWXHKYUT1110-86-04 10:10:26 Test Item Value Reference Range Interpretation Comments Rate Art (test code = Rate Art) 12 [facility] HospitalNtakavmRRIZIOEFQ1396-18-39 10:10:26 Test Item Value Reference Range Interpretation Comments Mode Art (test code = A/C (02/26/2013 N Mode Art) 05:10:26) [facility] HospitalOpzwpdwKBPTSTQRM4059-22-15 10:10:26 Test Item Value Reference Range Interpretation Comments Vt Art (test code = Vt Art) 400 [facility] HospitalDlrtjgsTKQIBNMVQ7772-40-14 10:10:26 Test Item Value Reference Range Interpretation Comments pH Art (test code = pH Art) 7.46 7.35-7.45 H [facility] HospitalUrdopcmPXXTBPGBW8962-18-10 10:10:26 Test Item Value Reference Range Interpretation Comments pCO2 Art (test code = pCO2 Art) 32 35-45 L [facility] HospitalWuvegauAGCWWJIZQ4231-17-71 10:10:26 Test Item Value Reference Range Interpretation Comments pO2 Art (test code = pO2 Art) 96 80-100 N [facility] HospitalOsqhrjeMVHTGYHES9863-36-85 10:10:26 Test Item Value Reference Range Interpretation Comments FiO2 Art (test code = FiO2 Art) 40.0 [facility] HospitalQlpazvjVTGPGCEQW3958-50-77 10:10:26 Test Item Value Reference Range Interpretation Comments PEEP Art (test code = PEEP Art) 10.0 [facility] HospitalFumtahnPECOSHZWA6355-79-89 10:10:26 Test Item Value Reference Range Interpretation Comments BE Art (test code = 0 See_Comment N [Automa matteo message] The BE Art) system which ge nerated this result transmit matteo reference range : <=2. The reference range was not used to interpr et this result as miesha l/abnormal. [facility] HospitalLykrpmsQPMTTNWIO3970-94-34 10:10:26 Test Item Value Reference Range Interpretation Comments HCO3 Art (test code = HCO3 Art) 23 22-26 N [facility] HospitalOseqdpkKSLKCGOLC3959-92-79 10:10:26 Test Item Value Reference Range Interpretation Comments Temp Art (test code = Temp Art) 37.0 [facility] HospitalScflzbqUBOYIERKN2824-66-28 10:10:26 Test Item Value Reference Range Interpretation Comments O2 Sat Art (test code = O2 Sat Art) 97.8 95.0-100.0 N [facility] HospitalPsqmyopXOILXWSWF0521-90-10 10:10:26 Test Item Value Reference Range Interpretation Comments Site Art (test code = A Line (02/26/2013 N Site Art) 05:10:26) [facility] HospitalZbgvsoaKEQZYIDOC4120-71-99 10:10:26 Test Item Value Reference Range Interpretation Comments Rate Art (test code = Rate Art) 12 [facility] HospitalLcgnfpnNZEYFTWIB8752-52-64 10:10:26 Test Item Value Reference Range Interpretation Comments Mode Art (test code = A/C (02/26/2013 N Mode Art) 05:10:26) [facility] HospitalRmqdxscUXAIZUTLB7554-12-32 10:10:26 Test Item Value Reference Range Interpretation Comments Vt Art (test code = Vt Art) 400 [facility] HospitalKxjmaphVZVVTIJTB8253-23-29 10:10:26 Test Item Value Reference Range Interpretation Comments pH Art (test code = pH Art) 7.46 7.35-7.45 H [facility] HospitalAazqtaxYIMSKAVOR4223-32-31 10:10:26 Test Item Value Reference Range Interpretation Comments pCO2 Art (test code = pCO2 Art) 32 35-45 L [facility] HospitalQmlpbuaWXKRJLRZH6688-38-69 10:10:26 Test Item Value Reference Range Interpretation Comments pO2 Art (test code = pO2 Art) 96 80-100 N [facility] HospitalItuebfxGSGJAYTQJ7269-38-98 10:10:26 Test Item Value Reference Range Interpretation Comments FiO2 Art (test code = FiO2 Art) 40.0 [facility] HospitalUufnbedKDGFUOUHV5147-46-07 10:10:26 Test Item Value Reference Range Interpretation Comments PEEP Art (test code = PEEP Art) 10.0 [facility] HospitalAfcuasuHGKUEWQHJ8645-39-07 10:10:26 Test Item Value Reference Range Interpretation Comments BE Art (test code = 0 See_Comment N [Automa matteo message] The BE Art) system which ge nerated this result transmit matteo reference range : <=2. The reference range was not used to interpr et this result as miesha l/abnormal. [facility] HospitalUkhjpwyPJLBTBQHL2294-42-49 10:10:26 Test Item Value Reference Range Interpretation Comments HCO3 Art (test code = HCO3 Art) 23 22-26 N [facility] HospitalJhdchgeBJZCBICER6585-71-48 10:10:26 Test Item Value Reference Range Interpretation Comments Temp Art (test code = Temp Art) 37.0 [facility] HospitalRaijlsdGEQCDYNRB3424-18-63 10:10:26 Test Item Value Reference Range Interpretation Comments O2 Sat Art (test code = O2 Sat Art) 97.8 95.0-100.0 N [facility] HospitalKgcpunwOLUTWRKAR7147-62-04 10:10:26 Test Item Value Reference Range Interpretation Comments Site Art (test code = A Line (02/26/2013 N Site Art) 05:10:26) [facility] HospitalWnekdmpKIBAZQZGZ9343-83-30 10:10:26 Test Item Value Reference Range Interpretation Comments Rate Art (test code = Rate Art) 12 [facility] HospitalOpzpgkzQGNRMSASW5650-79-06 10:10:26 Test Item Value Reference Range Interpretation Comments Mode Art (test code = A/C (02/26/2013 N Mode Art) 05:10:26) [facility] HospitalUmeeugkJHXYXNCAW2294-76-00 10:10:26 Test Item Value Reference Range Interpretation Comments Vt Art (test code = Vt Art) 400 [facility] HospitalUisbjfaCLVFTADEC0308-60-00 10:10:26 Test Item Value Reference Range Interpretation Comments pH Art (test code = pH Art) 7.46 7.35-7.45 H [facility] HospitalWrucemjQMKIZZAMB9287-89-04 10:10:26 Test Item Value Reference Range Interpretation Comments pCO2 Art (test code = pCO2 Art) 32 35-45 L [facility] HospitalYjmouweRNSCHIDYV2066-97-99 10:10:26 Test Item Value Reference Range Interpretation Comments pO2 Art (test code = pO2 Art) 96 80-100 N [facility] HospitalQvwkdxsPCHHHXZWV4674-99-14 10:10:26 Test Item Value Reference Range Interpretation Comments FiO2 Art (test code = FiO2 Art) 40.0 [facility] HospitalCyewsweASOEIKHAG2660-63-13 10:10:26 Test Item Value Reference Range Interpretation Comments PEEP Art (test code = PEEP Art) 10.0 [facility] HospitalMwtfceiUKHNZSGTH1103-74-66 10:10:26 Test Item Value Reference Range Interpretation Comments BE Art (test code = 0 See_Comment N [Automa matteo message] The BE Art) system which ge nerated this result transmit matteo reference range : <=2. The reference range was not used to interpr et this result as miesha l/abnormal. [facility] HospitalFugxnbaVIZYBRYXT5755-49-44 10:10:26 Test Item Value Reference Range Interpretation Comments HCO3 Art (test code = HCO3 Art) 23 22-26 N [facility] HospitalKxumuwcKRNUKIBFY3179-52-79 10:10:26 Test Item Value Reference Range Interpretation Comments Temp Art (test code = Temp Art) 37.0 [facility] HospitalGjncdxjCGGWECJKF6499-30-39 10:10:26 Test Item Value Reference Range Interpretation Comments O2 Sat Art (test code = O2 Sat Art) 97.8 95.0-100.0 N [facility] HospitalQxijezsFRAPVIVMD8196-30-49 10:10:26 Test Item Value Reference Range Interpretation Comments Site Art (test code = A Line (02/26/2013 N Site Art) 05:10:26) [facility] HospitalSntietbWFDACKVVJ3503-64-02 10:10:26 Test Item Value Reference Range Interpretation Comments Rate Art (test code = Rate Art) 12 [facility] HospitalUdabfhdXVJCMUFVT8379-47-24 10:10:26 Test Item Value Reference Range Interpretation Comments Mode Art (test code = A/C (02/26/2013 N Mode Art) 05:10:26) [facility] HospitalIhmdbcvKYUVECOXB9213-35-85 10:10:26 Test Item Value Reference Range Interpretation Comments Vt Art (test code = Vt Art) 400 [facility] HospitalMpitkcjEVXNDYFJH5036-09-40 10:10:26 Test Item Value Reference Range Interpretation Comments pH Art (test code = pH Art) 7.46 7.35-7.45 H [facility] HospitalBgkublyJWKUBPYKP4743-15-86 10:10:26 Test Item Value Reference Range Interpretation Comments pCO2 Art (test code = pCO2 Art) 32 35-45 L [facility] HospitalHutymojVWDKPZDNA2242-14-74 10:10:26 Test Item Value Reference Range Interpretation Comments pO2 Art (test code = pO2 Art) 96 80-100 N [facility] HospitalYymuelwJHRIJIOGE2736-10-34 10:10:26 Test Item Value Reference Range Interpretation Comments FiO2 Art (test code = FiO2 Art) 40.0 [facility] HospitalEpijzwpXVVUYPJHC5092-62-06 10:10:26 Test Item Value Reference Range Interpretation Comments PEEP Art (test code = PEEP Art) 10.0 [facility] HospitalSqltauaQDVQXUMVA8177-11-30 10:10:26 Test Item Value Reference Range Interpretation Comments BE Art (test code = 0 See_Comment N [Automa matteo message] The BE Art) system which ge nerated this result transmit matteo reference range : <=2. The reference range was not used to interpr et this result as miesha l/abnormal. [facility] HospitalZyqtwpvYBCKWXLXD8149-00-09 10:10:26 Test Item Value Reference Range Interpretation Comments HCO3 Art (test code = HCO3 Art) 23 22-26 N [facility] HospitalHnifrucVJWCNOMXX2954-81-72 10:10:26 Test Item Value Reference Range Interpretation Comments Temp Art (test code = Temp Art) 37.0 [facility] HospitalTehjjjaFFTQJTUUZ7818-65-97 10:10:26 Test Item Value Reference Range Interpretation Comments O2 Sat Art (test code = O2 Sat Art) 97.8 95.0-100.0 N [facility] HospitalXxszmchMIFJSBDBS9568-94-04 10:10:26 Test Item Value Reference Range Interpretation Comments Site Art (test code = A Line (02/26/2013 N Site Art) 05:10:26) [facility] HospitalPshkbbdOCAZCTNRE3608-86-39 10:10:26 Test Item Value Reference Range Interpretation Comments Rate Art (test code = Rate Art) 12 [facility] HospitalHfkbcyhJPFIDARVL6986-15-36 10:10:26 Test Item Value Reference Range Interpretation Comments Mode Art (test code = A/C (02/26/2013 N Mode Art) 05:10:26) [facility] HospitalGooshtcEFLNEJJKR4716-70-84 10:10:26 Test Item Value Reference Range Interpretation Comments Vt Art (test code = Vt Art) 400 [facility] HospitalOmcutepFJYKUTPYA5904-25-90 10:10:26 Test Item Value Reference Range Interpretation Comments pH Art (test code = pH Art) 7.46 7.35-7.45 H [facility] HospitalHhssnbjHZHPIFZIQ4913-38-83 10:10:26 Test Item Value Reference Range Interpretation Comments pCO2 Art (test code = pCO2 Art) 32 35-45 L [facility] HospitalDjjewdyDIEWXDHMJ4159-59-18 10:10:26 Test Item Value Reference Range Interpretation Comments pO2 Art (test code = pO2 Art) 96 80-100 N [facility] HospitalAynkanaTVTVQNTHL4711-10-75 10:10:26 Test Item Value Reference Range Interpretation Comments FiO2 Art (test code = FiO2 Art) 40.0 [facility] HospitalOmmfpkyDCFZROUDF7290-81-90 10:10:26 Test Item Value Reference Range Interpretation Comments PEEP Art (test code = PEEP Art) 10.0 [facility] HospitalYjotpjdZQMDULWXK1002-76-25 10:10:26 Test Item Value Reference Range Interpretation Comments BE Art (test code = 0 See_Comment N [Automa matteo message] The BE Art) system which ge nerated this result transmit matteo reference range : <=2. The reference range was not used to interpr et this result as miesha l/abnormal. [facility] HospitalLvkzdicDLJGLNYEU2793-58-79 10:10:26 Test Item Value Reference Range Interpretation Comments HCO3 Art (test code = HCO3 Art) 23 22-26 N [facility] HospitalRenocxqFAVRIJJYC0111-19-49 10:10:26 Test Item Value Reference Range Interpretation Comments Temp Art (test code = Temp Art) 37.0 [facility] HospitalXodxqyqFQNFGYJZZ6020-02-76 10:10:26 Test Item Value Reference Range Interpretation Comments O2 Sat Art (test code = O2 Sat Art) 97.8 95.0-100.0 N [facility] HospitalOlankrfOIGSHLDNR0622-42-11 10:10:26 Test Item Value Reference Range Interpretation Comments Site Art (test code = A Line (02/26/2013 N Site Art) 05:10:26) [facility] HospitalNbbswheRRIVFAZZC9733-00-97 10:10:26 Test Item Value Reference Range Interpretation Comments Rate Art (test code = Rate Art) 12 [facility] HospitalXibpyxrKPJLUIAKZ4506-99-35 10:10:26 Test Item Value Reference Range Interpretation Comments Mode Art (test code = A/C (02/26/2013 N Mode Art) 05:10:26) [facility] HospitalXgqblkmHHZSWPKMX5055-72-17 10:10:26 Test Item Value Reference Range Interpretation Comments Vt Art (test code = Vt Art) 400 [facility] HospitalDvossikZIEBEMLBO4664-19-12 10:10:26 Test Item Value Reference Range Interpretation Comments pH Art (test code = pH Art) 7.46 7.35-7.45 H [facility] HospitalNebnwhyVBIOIZDRF9054-41-23 10:10:26 Test Item Value Reference Range Interpretation Comments pCO2 Art (test code = pCO2 Art) 32 35-45 L [facility] HospitalBbtlasrFJWGUAVGL8951-32-59 10:10:26 Test Item Value Reference Range Interpretation Comments pO2 Art (test code = pO2 Art) 96 80-100 N [facility] HospitalNncbitfGBXKKJPCX0505-54-57 10:10:26 Test Item Value Reference Range Interpretation Comments FiO2 Art (test code = FiO2 Art) 40.0 [facility] HospitalOwmojzvNAFEEGRLX3708-76-32 10:10:26 Test Item Value Reference Range Interpretation Comments PEEP Art (test code = PEEP Art) 10.0 [facility] HospitalOinhpwdLFWCQNEXB2468-95-33 10:00:55 Test Item Value Reference Range Interpretation Comments Vanco Lvl (test code = Vanco Lvl) 33.3 [facility] HospitalXrmcetqTIGISLUSO8105-92-52 10:00:55 Test Item Value Reference Range Interpretation Comments Vanco Lvl (test code = Vanco Lvl) 33.3 [facility] HospitalJnynunmICYAUMLAO5387-38-70 10:00:55 Test Item Value Reference Range Interpretation Comments Vanco Lvl (test code = Vanco Lvl) 33.3 [facility] HospitalWmsionoBQMCSHBWI0794-46-43 10:00:55 Test Item Value Reference Range Interpretation Comments Vanco Lvl (test code = Vanco Lvl) 33.3 [facility] HospitalFntveydNEXLQKXWS4259-39-57 10:00:55 Test Item Value Reference Range Interpretation Comments Vanco Lvl (test code = Vanco Lvl) 33.3 [facility] HospitalUhhxzubQHEPKOMGM8759-63-04 10:00:55 Test Item Value Reference Range Interpretation Comments Vanco Lvl (test code = Vanco Lvl) 33.3 [facility]KihwippPACYMNFON2792-34-57 10:00:34 Test Item Value Reference Range Interpretation Comments eGFR (test code = eGFR) 61 [facility] HospitalDmhnbusIPSPVLOSX1917-64-62 10:00:34 Test Item Value Reference Range Interpretation Comments Calcium Lvl (test code = Calcium Lvl) 9.1 8.5-10.5 N [facility] HospitalSftdmixLHFZQPZDV8028-38-59 10:00:34 Test Item Value Reference Range Interpretation Comments Sodium Lvl (test code = Sodium Lvl) 147 135-145 H [facility] HospitalBitngveQYHGCGQFZ7161-26-74 10:00:34 Test Item Value Reference Range Interpretation Comments Potassium Lvl (test code = Potassium 3.7 3.5-5.1 N Lvl) [facility] HospitalCkouxqpDZFHFUCNE1077-73-13 10:00:34 Test Item Value Reference Range Interpretation Comments Chloride Lvl (test code = Chloride Lvl) 113 95-109 H [facility] HospitalDqwpazxVOCUYPCEC3902-98-68 10:00:34 Test Item Value Reference Range Interpretation Comments CO2 (test code = CO2) 24 24-32 N [facility] HospitalLtbxxdgUZHSCKYEF1504-53-29 10:00:34 Test Item Value Reference Range Interpretation Comments Glucose Lvl (test code = Glucose Lvl) 136 70-99 H [facility] HospitalSuanuofVDYQYSPRN6021-33-74 10:00:34 Test Item Value Reference Range Interpretation Comments BUN (test code = BUN) 25 7-22 H [facility] HospitalAbdbqijUXOCHFJCK4409-58-53 10:00:34 Test Item Value Reference Range Interpretation Comments Creatinine Lvl (test code = Creatinine 1.0 0.5-1.4 N Lvl) [facility] HospitalBvvxtyxPYTPBSUTM2257-15-99 10:00:34 Test Item Value Reference Range Interpretation Comments AGAP (test code = AGAP) 13.7 10.0-20.0 N [facility] HospitalVoabbnmHLULIBQNF5205-05-70 10:00:34 Test Item Value Reference Range Interpretation Comments Ca Norm WB (test code = Ca Norm WB) 1.22 1.05-1.25 N [facility] HospitalKifplzcOGUJSGTIH2187-39-72 10:00:34 Test Item Value Reference Range Interpretation Comments Ca Ion WB (test code = Ca Ion WB) 1.20 1.05-1.25 N [facility] HospitalPieozheLDHBAVZSU0166-86-50 10:00:34 Test Item Value Reference Range Interpretation Comments eGFR (test code = eGFR) 61 [facility] HospitalOvwmyniZFWQDXLEG4597-47-49 10:00:34 Test Item Value Reference Range Interpretation Comments Calcium Lvl (test code = Calcium Lvl) 9.1 8.5-10.5 N [facility] HospitalRdluohfLNBKYEYAC5853-84-95 10:00:34 Test Item Value Reference Range Interpretation Comments Sodium Lvl (test code = Sodium Lvl) 147 135-145 H [facility] HospitalWdtuvqqTPYDHPZPZ6550-23-88 10:00:34 Test Item Value Reference Range Interpretation Comments Potassium Lvl (test code = Potassium 3.7 3.5-5.1 N Lvl) [facility] HospitalNhfzjxoEMBHSYEFW9770-43-24 10:00:34 Test Item Value Reference Range Interpretation Comments Chloride Lvl (test code = Chloride Lvl) 113 95-109 H [facility] HospitalEvracafNBIGCNSIT5506-96-31 10:00:34 Test Item Value Reference Range Interpretation Comments CO2 (test code = CO2) 24 24-32 N [facility] HospitalWksjqhhNUUASDCSG9645-91-94 10:00:34 Test Item Value Reference Range Interpretation Comments Glucose Lvl (test code = Glucose Lvl) 136 70-99 H [facility] HospitalElevzwuAAXTJGCHH4799-51-54 10:00:34 Test Item Value Reference Range Interpretation Comments BUN (test code = BUN) 25 7-22 H [facility] HospitalKtmkozwNPBNKLNZV4919-60-16 10:00:34 Test Item Value Reference Range Interpretation Comments Creatinine Lvl (test code = Creatinine 1.0 0.5-1.4 N Lvl) [facility] HospitalCjeodgaUGUVJLXWE3523-38-80 10:00:34 Test Item Value Reference Range Interpretation Comments AGAP (test code = AGAP) 13.7 10.0-20.0 N [facility] HospitalHbtwihxATCJKXYIH0841-60-51 10:00:34 Test Item Value Reference Range Interpretation Comments Ca Norm WB (test code = Ca Norm WB) 1.22 1.05-1.25 N [facility] HospitalRxvmtlhLXORJKOIC9443-83-10 10:00:34 Test Item Value Reference Range Interpretation Comments Ca Ion WB (test code = Ca Ion WB) 1.20 1.05-1.25 N [facility] HospitalPcfuuqgEULUZFPCJ6957-16-78 10:00:34 Test Item Value Reference Range Interpretation Comments eGFR (test code = eGFR) 61 [facility] HospitalQoxnewlOSDJHJBJA1805-26-77 10:00:34 Test Item Value Reference Range Interpretation Comments Calcium Lvl (test code = Calcium Lvl) 9.1 8.5-10.5 N [facility] HospitalFvqaenhZAIHHLSMB8274-08-06 10:00:34 Test Item Value Reference Range Interpretation Comments Sodium Lvl (test code = Sodium Lvl) 147 135-145 H [facility] HospitalHuasemnHUARIPXKU8924-16-80 10:00:34 Test Item Value Reference Range Interpretation Comments Potassium Lvl (test code = Potassium 3.7 3.5-5.1 N Lvl) [facility] HospitalQactbtgEJNFKSQIS3213-39-29 10:00:34 Test Item Value Reference Range Interpretation Comments Chloride Lvl (test code = Chloride Lvl) 113 95-109 H [facility] HospitalYbulgjwEHTYRJUUZ4228-68-86 10:00:34 Test Item Value Reference Range Interpretation Comments CO2 (test code = CO2) 24 24-32 N [facility] HospitalOvtggwwLWXSJZOGH6714-21-88 10:00:34 Test Item Value Reference Range Interpretation Comments Glucose Lvl (test code = Glucose Lvl) 136 70-99 H [facility] HospitalLnnmzuxJBAEPMWOK0084-85-18 10:00:34 Test Item Value Reference Range Interpretation Comments BUN (test code = BUN) 25 7-22 H [facility] HospitalIhsyrhwOAFXNQTUH7046-87-37 10:00:34 Test Item Value Reference Range Interpretation Comments Creatinine Lvl (test code = Creatinine 1.0 0.5-1.4 N Lvl) [facility] HospitalXykizasUHNTERAEE7975-82-17 10:00:34 Test Item Value Reference Range Interpretation Comments AGAP (test code = AGAP) 13.7 10.0-20.0 N [facility] HospitalJghfcalFIXKNZCOK2517-94-84 10:00:34 Test Item Value Reference Range Interpretation Comments Ca Norm WB (test code = Ca Norm WB) 1.22 1.05-1.25 N [facility] HospitalUlgxhidNONEIKAXI5454-36-84 10:00:34 Test Item Value Reference Range Interpretation Comments Ca Ion WB (test code = Ca Ion WB) 1.20 1.05-1.25 N [facility] HospitalGzaiucfKIWKEYZMD6487-74-37 10:00:34 Test Item Value Reference Range Interpretation Comments eGFR (test code = eGFR) 61 [facility] HospitalClhfiioKFWJMVXVA8330-78-49 10:00:34 Test Item Value Reference Range Interpretation Comments Calcium Lvl (test code = Calcium Lvl) 9.1 8.5-10.5 N [facility] HospitalFlomiodRQLOTYWUV7890-22-33 10:00:34 Test Item Value Reference Range Interpretation Comments Sodium Lvl (test code = Sodium Lvl) 147 135-145 H [facility] HospitalOrlyxudJNTCMVTGT9901-79-37 10:00:34 Test Item Value Reference Range Interpretation Comments Potassium Lvl (test code = Potassium 3.7 3.5-5.1 N Lvl) [facility] HospitalWipczbqFRRHEMRNZ6028-23-25 10:00:34 Test Item Value Reference Range Interpretation Comments Chloride Lvl (test code = Chloride Lvl) 113 95-109 H [facility] HospitalHluwxgsCLFRUNCEH2131-10-33 10:00:34 Test Item Value Reference Range Interpretation Comments CO2 (test code = CO2) 24 24-32 N [facility] HospitalSkktdvgCIGEOSSPK5168-84-71 10:00:34 Test Item Value Reference Range Interpretation Comments Glucose Lvl (test code = Glucose Lvl) 136 70-99 H [facility] HospitalYqnsfbhTQMEYTTSW8985-60-42 10:00:34 Test Item Value Reference Range Interpretation Comments BUN (test code = BUN) 25 7-22 H [facility] HospitalLfevixlGEEWKEHSB2148-25-92 10:00:34 Test Item Value Reference Range Interpretation Comments Creatinine Lvl (test code = Creatinine 1.0 0.5-1.4 N Lvl) [facility] HospitalJtyfgnpFTDSRMAAR0432-05-44 10:00:34 Test Item Value Reference Range Interpretation Comments AGAP (test code = AGAP) 13.7 10.0-20.0 N [facility] HospitalIeqeiehQIQLGDSZQ6398-49-10 10:00:34 Test Item Value Reference Range Interpretation Comments Ca Norm WB (test code = Ca Norm WB) 1.22 1.05-1.25 N [facility] HospitalBgaannkPDOHEHUIV1163-72-80 10:00:34 Test Item Value Reference Range Interpretation Comments Ca Ion WB (test code = Ca Ion WB) 1.20 1.05-1.25 N [facility] HospitalYwohaqaRRLWGBPTC7720-29-73 10:00:34 Test Item Value Reference Range Interpretation Comments eGFR (test code = eGFR) 61 [facility] HospitalWjmpbqnTCIMPGRYS1252-91-82 10:00:34 Test Item Value Reference Range Interpretation Comments Calcium Lvl (test code = Calcium Lvl) 9.1 8.5-10.5 N [facility] HospitalZlrugudMVPWNITTJ0655-46-22 10:00:34 Test Item Value Reference Range Interpretation Comments Sodium Lvl (test code = Sodium Lvl) 147 135-145 H [facility] HospitalFrdfmwkDIIADXDOJ0072-02-10 10:00:34 Test Item Value Reference Range Interpretation Comments Potassium Lvl (test code = Potassium 3.7 3.5-5.1 N Lvl) [facility] HospitalTvqbfawLWFJAPDWY4511-57-21 10:00:34 Test Item Value Reference Range Interpretation Comments Chloride Lvl (test code = Chloride Lvl) 113 95-109 H [facility] HospitalWwrazveOHCRQVULQ5593-15-77 10:00:34 Test Item Value Reference Range Interpretation Comments CO2 (test code = CO2) 24 24-32 N [facility] HospitalXlpsfhqJMACJNMLS6796-69-08 10:00:34 Test Item Value Reference Range Interpretation Comments Glucose Lvl (test code = Glucose Lvl) 136 70-99 H [facility] HospitalBufrvcoAOKHFRTJI6515-41-79 10:00:34 Test Item Value Reference Range Interpretation Comments BUN (test code = BUN) 25 7-22 H [facility] HospitalKbvvqqwQLBINCDQT2057-81-30 10:00:34 Test Item Value Reference Range Interpretation Comments Creatinine Lvl (test code = Creatinine 1.0 0.5-1.4 N Lvl) [facility] HospitalNuinzygMUOHKZLQO7677-89-44 10:00:34 Test Item Value Reference Range Interpretation Comments AGAP (test code = AGAP) 13.7 10.0-20.0 N [facility] HospitalTyedyyaFPXSKRTFO0601-21-76 10:00:34 Test Item Value Reference Range Interpretation Comments Ca Norm WB (test code = Ca Norm WB) 1.22 1.05-1.25 N [facility] HospitalGnrlttnJACWKEZMT5089-62-01 10:00:34 Test Item Value Reference Range Interpretation Comments Ca Ion WB (test code = Ca Ion WB) 1.20 1.05-1.25 N [facility] HospitalKhbwzkvWGGUOEPAX6576-64-57 10:00:34 Test Item Value Reference Range Interpretation Comments eGFR (test code = eGFR) 61 [facility] HospitalJzouldhSPNMABAOK3495-51-71 10:00:34 Test Item Value Reference Range Interpretation Comments Calcium Lvl (test code = Calcium Lvl) 9.1 8.5-10.5 N [facility] HospitalPtigfblTNGIJQZFO1982-80-25 10:00:34 Test Item Value Reference Range Interpretation Comments Sodium Lvl (test code = Sodium Lvl) 147 135-145 H [facility] HospitalTgptdfsCYJLZMWKW1855-52-15 10:00:34 Test Item Value Reference Range Interpretation Comments Potassium Lvl (test code = Potassium 3.7 3.5-5.1 N Lvl) [facility] HospitalFzrstzpFACNSKESN2912-94-35 10:00:34 Test Item Value Reference Range Interpretation Comments Chloride Lvl (test code = Chloride Lvl) 113 95-109 H [facility] HospitalEiqggklRUXMFEZFL6199-50-10 10:00:34 Test Item Value Reference Range Interpretation Comments CO2 (test code = CO2) 24 24-32 N [facility] HospitalUdlxpknDISPQUURV8943-00-12 10:00:34 Test Item Value Reference Range Interpretation Comments Glucose Lvl (test code = Glucose Lvl) 136 70-99 H [facility] HospitalBssktmnMZWEIAIUJ2448-26-76 10:00:34 Test Item Value Reference Range Interpretation Comments BUN (test code = BUN) 25 7-22 H [facility] HospitalCqabcpxYWFBWAQVZ0050-56-73 10:00:34 Test Item Value Reference Range Interpretation Comments Creatinine Lvl (test code = Creatinine 1.0 0.5-1.4 N Lvl) [facility] HospitalSojmbfyEBDURHGRD4504-38-81 10:00:34 Test Item Value Reference Range Interpretation Comments AGAP (test code = AGAP) 13.7 10.0-20.0 N [facility] HospitalJuymwdkVWWFRRSYF0027-02-96 10:00:34 Test Item Value Reference Range Interpretation Comments Ca Norm WB (test code = Ca Norm WB) 1.22 1.05-1.25 N [facility] HospitalBbzuollUDNEZWUDJ4070-45-99 10:00:34 Test Item Value Reference Range Interpretation Comments Ca Ion WB (test code = Ca Ion WB) 1.20 1.05-1.25 N [facility] HospitalDdkthiaEFSACXWVZE6839-14-54 10:00:00 Test Item Value Reference Range Interpretation Comments Atypical Lymphs (test code = Atypical 0.0 N Lymphs) [facility] HospitalArxlbngIPRPEWHVYY4650-05-69 10:00:00 Test Item Value Reference Range Interpretation Comments NRBC (test code = NRBC) 1 [facility] HospitalMcmlutxZJCHEHKPSB8409-31-53 10:00:00 Test Item Value Reference Range Interpretation Comments Myelocytes (test code = Myelocytes) 2.0 H [facility] HospitalXdabkhxQHOWLRJXDJ5957-47-55 10:00:00 Test Item Value Reference Range Interpretation Comments Lymphocytes (test code = Lymphocytes) 13.0 20.0-40.0 L [facility] HospitalCqqvlitOWYQZXTZOK7179-39-70 10:00:00 Test Item Value Reference Range Interpretation Comments Monocytes (test code = Monocytes) 0.0 2.0-12.0 L [facility] HospitalNditxpoGWWHUPPLHW6961-26-58 10:00:00 Test Item Value Reference Range Interpretation Comments Elliptocyte (test code = Slight A Elliptocyte) *ABN*(02/26/2013 05:00:00) [facility] HospitalAklklwaAAUUYEAHEQ1421-85-70 10:00:00 Test Item Value Reference Range Interpretation Comments Large Plt (test code = Slight *ABN*(02/26/2013 A Large Plt) 05:00:00) [facility] HospitalKhgowvnJIFVSYTHRR1198-18-60 10:00:00 Test Item Value Reference Range Interpretation Comments Tot Cell Ct (test code = Tot Cell Ct) 100 1 [facility] HospitalZnjudkvUBOBINJTCL4863-41-91 10:00:00 Test Item Value Reference Range Interpretation Comments Anisocyte (test code = 1+ *ABN*(02/26/2013 A Anisocyte) 05:00:00) [facility] HospitalSlsrkedMQGMBQPIYE8869-23-38 10:00:00 Test Item Value Reference Range Interpretation Comments Polychrom (test code = Slight (02/26/2013 N Polychrom) 05:00:00) [facility] HospitalHkorinuUWFEQRLHTV6374-36-53 10:00:00 Test Item Value Reference Range Interpretation Comments Segs-Bands # (test code = Segs-Bands #) 10.5 1.5-8.1 H [facility] HospitalHjzvmkzVEBHPFVIED2065-15-64 10:00:00 Test Item Value Reference Range Interpretation Comments Lymphocytes # (test code = Lymphocytes 1.6 1.0-5.5 N #) [facility] HospitalYfagdcqZZZSNDVBKX3315-45-92 10:00:00 Test Item Value Reference Range Interpretation Comments Monocytes # (test code 0.0 See_Comment N [Aut omated message] The = Monocytes #) system which generated this result tra nsmitted reference range : <=0.8. The reference r katie was not used to int erpret this result as normal/abnormal . [facility] HospitalAprjfywYBBBDRTNKH7993-62-05 10:00:00 Test Item Value Reference Range Interpretation Comments Bands (test code = 7.0 See_Comment N [Automat ed message] The Bands) system which ge nerated this result transmit matteo reference range : <=11.0. The reference r katie was not used to interpr et this result as miesha l/abnormal. [facility] HospitalXpeoxntLYDTLGMRPK8405-16-63 10:00:00 Test Item Value Reference Range Interpretation Comments Segs (test code = Segs) 78.0 45.0-75.0 H [facility] HospitalLgtmrirMYVPOFUYRD2051-46-47 10:00:00 Test Item Value Reference Range Interpretation Comments RDW (test code = RDW) 17.6 11.5-14.5 H [facility] HospitalWtiyjduGBBEXVFKXC0647-03-92 10:00:00 Test Item Value Reference Range Interpretation Comments MCHC (test code = MCHC) 35.0 32.0-36.0 N [facility] HospitalPjdvobmLYLWYOHUWW2881-73-75 10:00:00 Test Item Value Reference Range Interpretation Comments MCH (test code = MCH) 32.2 pg 27.0-31.0 H [facility] HospitalNzzmclfLIRKKXPQNW5894-34-11 10:00:00 Test Item Value Reference Range Interpretation Comments Hct (test code = Hct) 27.4 36.0-48.0 L [facility] HospitalMgpkizeTFCZKWISYX1760-41-04 10:00:00 Test Item Value Reference Range Interpretation Comments Hgb (test code = Hgb) 9.6 12.0-16.0 L [facility] HospitalJagpzanEBBHWHCESV4480-37-72 10:00:00 Test Item Value Reference Range Interpretation Comments MCV (test code = MCV) 91.8 81.0-99.0 N [facility] HospitalKjemwftFWAZASGWLX4645-13-14 10:00:00 Test Item Value Reference Range Interpretation Comments WBC (test code = WBC) 12.4 3.7-10.4 H [facility] HospitalQagbjkzNXXKCGRCJR5471-04-73 10:00:00 Test Item Value Reference Range Interpretation Comments RBC (test code = RBC) 2.98 4.20-5.40 L [facility] HospitalWskbcouRIITMPUGCS5343-44-31 10:00:00 Test Item Value Reference Range Interpretation Comments MPV (test code = MPV) 7.1 7.4-10.4 L [facility] HospitalTnalwepHPRJPWKHHL1220-89-92 10:00:00 Test Item Value Reference Range Interpretation Comments Platelet (test code = Platelet) 221 133-450 N [facility] HospitalNxkixgaUUWUDKEEIQ0689-07-46 10:00:00 Test Item Value Reference Range Interpretation Comments Atypical Lymphs (test code = Atypical 0.0 N Lymphs) [facility] HospitalUoidpciWLORIYDXNV6752-06-64 10:00:00 Test Item Value Reference Range Interpretation Comments NRBC (test code = NRBC) 1 [facility] HospitalMoacnnhYNSZOTNHPT5316-54-14 10:00:00 Test Item Value Reference Range Interpretation Comments Myelocytes (test code = Myelocytes) 2.0 H [facility] HospitalFippmpeNSNPQOEZJD8858-89-85 10:00:00 Test Item Value Reference Range Interpretation Comments Lymphocytes (test code = Lymphocytes) 13.0 20.0-40.0 L [facility] HospitalLsaybplVCFZIWDBGB4985-48-45 10:00:00 Test Item Value Reference Range Interpretation Comments Monocytes (test code = Monocytes) 0.0 2.0-12.0 L [facility] HospitalHnnwhckZWTFIZADPQ6240-01-09 10:00:00 Test Item Value Reference Range Interpretation Comments Elliptocyte (test code = Slight A Elliptocyte) *ABN*(02/26/2013 05:00:00) [facility] HospitalHqcxvrwDJJQYVPBSR0052-01-74 10:00:00 Test Item Value Reference Range Interpretation Comments Large Plt (test code = Slight *ABN*(02/26/2013 A Large Plt) 05:00:00) [facility] HospitalBtuaxulEYFVMHVCWW5993-62-52 10:00:00 Test Item Value Reference Range Interpretation Comments Tot Cell Ct (test code = Tot Cell Ct) 100 1 [facility] HospitalIxlshtcSYBRESQMYY1087-99-82 10:00:00 Test Item Value Reference Range Interpretation Comments Anisocyte (test code = 1+ *ABN*(02/26/2013 A Anisocyte) 05:00:00) [facility] HospitalFhbqmkmXYABRNIGOX1639-40-26 10:00:00 Test Item Value Reference Range Interpretation Comments Polychrom (test code = Slight (02/26/2013 N Polychrom) 05:00:00) [facility] HospitalYonobizEGIKHWTPHL9379-82-79 10:00:00 Test Item Value Reference Range Interpretation Comments Segs-Bands # (test code = Segs-Bands #) 10.5 1.5-8.1 H [facility] HospitalBeygvonKGIIIQXELU5134-23-43 10:00:00 Test Item Value Reference Range Interpretation Comments Lymphocytes # (test code = Lymphocytes 1.6 1.0-5.5 N #) [facility] HospitalBzehjcmFEUQPWJJDS5614-31-47 10:00:00 Test Item Value Reference Range Interpretation Comments Monocytes # (test code 0.0 See_Comment N [Aut omated message] The = Monocytes #) system which generated this result tra nsmitted reference range : <=0.8. The reference r katie was not used to int erpret this result as normal/abnormal . [facility] HospitalWwbwlxaMRLNUTENSA7286-17-35 10:00:00 Test Item Value Reference Range Interpretation Comments Bands (test code = 7.0 See_Comment N [Automat ed message] The Bands) system which ge nerated this result transmit matteo reference range : <=11.0. The reference r katie was not used to interpr et this result as miesha l/abnormal. [facility] HospitalKysmtfePHGPWAQCBO4912-01-87 10:00:00 Test Item Value Reference Range Interpretation Comments Segs (test code = Segs) 78.0 45.0-75.0 H [facility] HospitalJvbhcsqRSRIGNRONC4043-32-65 10:00:00 Test Item Value Reference Range Interpretation Comments RDW (test code = RDW) 17.6 11.5-14.5 H [facility] HospitalCmcpcswNHJJQNQKJE2616-96-73 10:00:00 Test Item Value Reference Range Interpretation Comments MCHC (test code = MCHC) 35.0 32.0-36.0 N [facility] HospitalBkkswjzEUUEWHQUOT3355-30-04 10:00:00 Test Item Value Reference Range Interpretation Comments MCH (test code = MCH) 32.2 pg 27.0-31.0 H [facility] HospitalOwritxtSWNBPNZZCV9891-83-93 10:00:00 Test Item Value Reference Range Interpretation Comments Hct (test code = Hct) 27.4 36.0-48.0 L [facility] HospitalElkismeXOVKLFZJBX2195-68-02 10:00:00 Test Item Value Reference Range Interpretation Comments Hgb (test code = Hgb) 9.6 12.0-16.0 L [facility] HospitalObmkbvvZUYWUCCIBL2040-15-55 10:00:00 Test Item Value Reference Range Interpretation Comments MCV (test code = MCV) 91.8 81.0-99.0 N [facility] HospitalBnmppexFQWLVYFVZO0723-98-79 10:00:00 Test Item Value Reference Range Interpretation Comments WBC (test code = WBC) 12.4 3.7-10.4 H [facility] HospitalAsgkgnwTVWHPQAUUC5423-55-98 10:00:00 Test Item Value Reference Range Interpretation Comments RBC (test code = RBC) 2.98 4.20-5.40 L [facility] HospitalKklqvzmSOVIYMYYUV2117-03-73 10:00:00 Test Item Value Reference Range Interpretation Comments MPV (test code = MPV) 7.1 7.4-10.4 L [facility] HospitalKpasldqVBMFBOODRN5276-48-24 10:00:00 Test Item Value Reference Range Interpretation Comments Platelet (test code = Platelet) 221 133-450 N [facility] HospitalDwrltciVLMMVGEVXS4261-39-91 10:00:00 Test Item Value Reference Range Interpretation Comments Atypical Lymphs (test code = Atypical 0.0 N Lymphs) [facility] HospitalPmmkpdaHEUYHDWZPP8554-22-60 10:00:00 Test Item Value Reference Range Interpretation Comments NRBC (test code = NRBC) 1 [facility] HospitalTbnrccgOLFXPAVOCX4017-24-46 10:00:00 Test Item Value Reference Range Interpretation Comments Myelocytes (test code = Myelocytes) 2.0 H [facility] HospitalKchoywcQDNMWEBYJG5532-79-87 10:00:00 Test Item Value Reference Range Interpretation Comments Lymphocytes (test code = Lymphocytes) 13.0 20.0-40.0 L [facility] HospitalHoxhewpRLFLLXFXPG6640-30-58 10:00:00 Test Item Value Reference Range Interpretation Comments Monocytes (test code = Monocytes) 0.0 2.0-12.0 L [facility] HospitalBxtokzkUBVNEFUWDH4463-16-05 10:00:00 Test Item Value Reference Range Interpretation Comments Elliptocyte (test code = Slight A Elliptocyte) *ABN*(02/26/2013 05:00:00) [facility] HospitalJdhchrwYQGMLPMBZC3743-83-00 10:00:00 Test Item Value Reference Range Interpretation Comments Large Plt (test code = Slight *ABN*(02/26/2013 A Large Plt) 05:00:00) [facility] HospitalKcqyjxjFLAEYUWGGC0131-84-64 10:00:00 Test Item Value Reference Range Interpretation Comments Tot Cell Ct (test code = Tot Cell Ct) 100 1 [facility] HospitalNihklukTCBYNQTTQP5723-37-95 10:00:00 Test Item Value Reference Range Interpretation Comments Anisocyte (test code = 1+ *ABN*(02/26/2013 A Anisocyte) 05:00:00) [facility] HospitalHlkxitxLZXKTZTKOP1958-03-07 10:00:00 Test Item Value Reference Range Interpretation Comments Polychrom (test code = Slight (02/26/2013 N Polychrom) 05:00:00) [facility] HospitalWypninpKTYEXQXZDQ2192-66-93 10:00:00 Test Item Value Reference Range Interpretation Comments Segs-Bands # (test code = Segs-Bands #) 10.5 1.5-8.1 H [facility] HospitalVkogtwxLUBOADCZVZ7649-90-58 10:00:00 Test Item Value Reference Range Interpretation Comments Lymphocytes # (test code = Lymphocytes 1.6 1.0-5.5 N #) [facility] HospitalRospskvMPJYSMVCJF4284-94-92 10:00:00 Test Item Value Reference Range Interpretation Comments Monocytes # (test code 0.0 See_Comment N [Aut omated message] The = Monocytes #) system which generated this result tra nsmitted reference range : <=0.8. The reference r katie was not used to int erpret this result as normal/abnormal . [facility] HospitalYrsccxoFBZFAGTXTA3839-20-91 10:00:00 Test Item Value Reference Range Interpretation Comments Bands (test code = 7.0 See_Comment N [Automat ed message] The Bands) system which ge nerated this result transmit matteo reference range : <=11.0. The reference r katie was not used to interpr et this result as miesha l/abnormal. [facility]ArlspybJDYYTRPAHY5110-53-78 10:00:00 Test Item Value Reference Range Interpretation Comments Segs (test code = Segs) 78.0 45.0-75.0 H [facility] HospitalKkbixznAGDJLHCBJM0241-29-87 10:00:00 Test Item Value Reference Range Interpretation Comments RDW (test code = RDW) 17.6 11.5-14.5 H [facility] HospitalXrcwyfsDFAYZZETWK3035-78-05 10:00:00 Test Item Value Reference Range Interpretation Comments MCHC (test code = MCHC) 35.0 32.0-36.0 N [facility] HospitalOibwsvcUKFKNLJONH4619-99-69 10:00:00 Test Item Value Reference Range Interpretation Comments MCH (test code = MCH) 32.2 pg 27.0-31.0 H [facility] HospitalMptungbZPUXWTCMEG6942-98-10 10:00:00 Test Item Value Reference Range Interpretation Comments Hct (test code = Hct) 27.4 36.0-48.0 L [facility] HospitalRmdkrnoAKQTJUUWNG1485-21-43 10:00:00 Test Item Value Reference Range Interpretation Comments Hgb (test code = Hgb) 9.6 12.0-16.0 L [facility] HospitalLyuotbsUTSMNRHLCF8967-11-28 10:00:00 Test Item Value Reference Range Interpretation Comments MCV (test code = MCV) 91.8 81.0-99.0 N [facility] HospitalYdcxgyhYBLQKRXSCC8242-38-46 10:00:00 Test Item Value Reference Range Interpretation Comments WBC (test code = WBC) 12.4 3.7-10.4 H [facility] HospitalKofgsoaTRDDVRTCPJ8401-46-35 10:00:00 Test Item Value Reference Range Interpretation Comments RBC (test code = RBC) 2.98 4.20-5.40 L [facility] HospitalVqlmjgzZQHOHRMHMQ1312-89-66 10:00:00 Test Item Value Reference Range Interpretation Comments MPV (test code = MPV) 7.1 7.4-10.4 L [facility] HospitalUbvrweoAMEKMRFYDM6460-85-61 10:00:00 Test Item Value Reference Range Interpretation Comments Platelet (test code = Platelet) 221 133-450 N [facility] HospitalQerouvxSMYMZHAOJP7834-82-20 10:00:00 Test Item Value Reference Range Interpretation Comments Atypical Lymphs (test code = Atypical 0.0 N Lymphs) [facility] HospitalSutwtflBBREPVNPQP4987-34-98 10:00:00 Test Item Value Reference Range Interpretation Comments NRBC (test code = NRBC) 1 [facility] HospitalMsqvgboWKRXFUAKVV2533-69-06 10:00:00 Test Item Value Reference Range Interpretation Comments Myelocytes (test code = Myelocytes) 2.0 H [facility] HospitalZwteradTJOGBTKNLF7802-19-90 10:00:00 Test Item Value Reference Range Interpretation Comments Lymphocytes (test code = Lymphocytes) 13.0 20.0-40.0 L [facility] HospitalAfjjgljYILEHQLCOY2224-01-70 10:00:00 Test Item Value Reference Range Interpretation Comments Monocytes (test code = Monocytes) 0.0 2.0-12.0 L [facility] HospitalVakaxdeFQQTJSVYAL3857-97-37 10:00:00 Test Item Value Reference Range Interpretation Comments Elliptocyte (test code = Slight A Elliptocyte) *ABN*(02/26/2013 05:00:00) [facility] HospitalEmknduaDOWTWSDPKJ9491-05-21 10:00:00 Test Item Value Reference Range Interpretation Comments Large Plt (test code = Slight *ABN*(02/26/2013 A Large Plt) 05:00:00) [facility] HospitalRnlbzyoSFNALMMEVU0187-62-59 10:00:00 Test Item Value Reference Range Interpretation Comments Tot Cell Ct (test code = Tot Cell Ct) 100 1 [facility] HospitalPjqqrxcSTJYIMDEQU8355-27-63 10:00:00 Test Item Value Reference Range Interpretation Comments Anisocyte (test code = 1+ *ABN*(02/26/2013 A Anisocyte) 05:00:00) [facility] HospitalCetuzlkJCKQCCESCK3747-76-17 10:00:00 Test Item Value Reference Range Interpretation Comments Polychrom (test code = Slight (02/26/2013 N Polychrom) 05:00:00) [facility] HospitalCyjhjfaSKCKFAPSFX2617-27-80 10:00:00 Test Item Value Reference Range Interpretation Comments Segs-Bands # (test code = Segs-Bands #) 10.5 1.5-8.1 H [facility] HospitalUnhpjkiPCFPOHYYLF7010-87-92 10:00:00 Test Item Value Reference Range Interpretation Comments Lymphocytes # (test code = Lymphocytes 1.6 1.0-5.5 N #) [facility] HospitalTgsvyunUBVWGVIPOR5613-26-76 10:00:00 Test Item Value Reference Range Interpretation Comments Monocytes # (test code 0.0 See_Comment N [Aut omated message] The = Monocytes #) system which generated this result tra nsmitted reference range : <=0.8. The reference r katie was not used to int erpret this result as normal/abnormal . [facility] HospitalOlvjccqABHLKJULXD7625-39-74 10:00:00 Test Item Value Reference Range Interpretation Comments Bands (test code = 7.0 See_Comment N [Automat ed message] The Bands) system which ge nerated this result transmit matteo reference range : <=11.0. The reference r katie was not used to interpr et this result as miesha l/abnormal. [facility] HospitalXxwdbblRKXDSYLSEM2410-01-31 10:00:00 Test Item Value Reference Range Interpretation Comments Segs (test code = Segs) 78.0 45.0-75.0 H [facility] HospitalJzhatyvDFXYCWOQGU9319-10-65 10:00:00 Test Item Value Reference Range Interpretation Comments RDW (test code = RDW) 17.6 11.5-14.5 H [facility] HospitalRfjltcdFSNUFFMPGB5072-42-20 10:00:00 Test Item Value Reference Range Interpretation Comments MCHC (test code = MCHC) 35.0 32.0-36.0 N [facility] HospitalFskkjcoXIXSJCEBET5896-38-01 10:00:00 Test Item Value Reference Range Interpretation Comments MCH (test code = MCH) 32.2 pg 27.0-31.0 H [facility] HospitalPgpuhabNMOXJBJNKC0388-87-66 10:00:00 Test Item Value Reference Range Interpretation Comments Hct (test code = Hct) 27.4 36.0-48.0 L [facility] HospitalIrcsfeaZWJZCSRNOG5752-89-58 10:00:00 Test Item Value Reference Range Interpretation Comments Hgb (test code = Hgb) 9.6 12.0-16.0 L [facility] HospitalCbasrjlXZCIASSLYT9887-17-57 10:00:00 Test Item Value Reference Range Interpretation Comments MCV (test code = MCV) 91.8 81.0-99.0 N [facility] HospitalMmtjcpvTMDUXCOAMM0766-41-15 10:00:00 Test Item Value Reference Range Interpretation Comments WBC (test code = WBC) 12.4 3.7-10.4 H [facility] HospitalPgahmvnWDTETDYAMM7927-87-54 10:00:00 Test Item Value Reference Range Interpretation Comments RBC (test code = RBC) 2.98 4.20-5.40 L [facility] HospitalJaceoqoSPFWIKVKKM1948-65-67 10:00:00 Test Item Value Reference Range Interpretation Comments MPV (test code = MPV) 7.1 7.4-10.4 L [facility] HospitalTfbcakrGVDJQEDSGT3666-69-31 10:00:00 Test Item Value Reference Range Interpretation Comments Platelet (test code = Platelet) 221 133-450 N [facility] HospitalBczgcluVUQVIRBKXE3698-17-08 10:00:00 Test Item Value Reference Range Interpretation Comments Atypical Lymphs (test code = Atypical 0.0 N Lymphs) [facility] HospitalCdmpglcFMPFMEDNAP3440-92-20 10:00:00 Test Item Value Reference Range Interpretation Comments NRBC (test code = NRBC) 1 [facility] HospitalCcgncgvRKAFDUXBZQ9020-00-51 10:00:00 Test Item Value Reference Range Interpretation Comments Myelocytes (test code = Myelocytes) 2.0 H [facility] HospitalOqbgokiFKBDOJULLD3131-46-34 10:00:00 Test Item Value Reference Range Interpretation Comments Lymphocytes (test code = Lymphocytes) 13.0 20.0-40.0 L [facility] HospitalEnklvfuVFMCBXXBSA5064-61-98 10:00:00 Test Item Value Reference Range Interpretation Comments Monocytes (test code = Monocytes) 0.0 2.0-12.0 L [facility] HospitalSkqegujWDGPCYHITJ9171-15-74 10:00:00 Test Item Value Reference Range Interpretation Comments Elliptocyte (test code = Slight A Elliptocyte) *ABN*(02/26/2013 05:00:00) [facility] HospitalEydzworQNOQVGMAOR4285-84-07 10:00:00 Test Item Value Reference Range Interpretation Comments Large Plt (test code = Slight *ABN*(02/26/2013 A Large Plt) 05:00:00) [facility] HospitalWrcpbmiHLVQIDETYJ7513-49-20 10:00:00 Test Item Value Reference Range Interpretation Comments Tot Cell Ct (test code = Tot Cell Ct) 100 1 [facility] HospitalNtntzgfVUUYSMCBJL0195-86-72 10:00:00 Test Item Value Reference Range Interpretation Comments Anisocyte (test code = 1+ *ABN*(02/26/2013 A Anisocyte) 05:00:00) [facility] HospitalWsahadyHOXFSWEFGE4124-27-36 10:00:00 Test Item Value Reference Range Interpretation Comments Polychrom (test code = Slight (02/26/2013 N Polychrom) 05:00:00) [facility] HospitalBrpiwmmIVLFUQAXYV5354-69-66 10:00:00 Test Item Value Reference Range Interpretation Comments Segs-Bands # (test code = Segs-Bands #) 10.5 1.5-8.1 H [facility] HospitalDlirynfRATTBKHPNQ3919-19-57 10:00:00 Test Item Value Reference Range Interpretation Comments Lymphocytes # (test code = Lymphocytes 1.6 1.0-5.5 N #) [facility] HospitalJruqyepFZPVBQLMRZ8603-66-47 10:00:00 Test Item Value Reference Range Interpretation Comments Monocytes # (test code 0.0 See_Comment N [Aut omated message] The = Monocytes #) system which generated this result tra nsmitted reference range : <=0.8. The reference r katie was not used to int erpret this result as normal/abnormal . [facility] HospitalQpeyfkaRTGJDQXLLL3140-59-49 10:00:00 Test Item Value Reference Range Interpretation Comments Bands (test code = 7.0 See_Comment N [Automat ed message] The Bands) system which ge nerated this result transmit matteo reference range : <=11.0. The reference r katie was not used to interpr et this result as miesha l/abnormal. [facility] HospitalBakinciFGNZLBUJXC6262-60-47 10:00:00 Test Item Value Reference Range Interpretation Comments Segs (test code = Segs) 78.0 45.0-75.0 H [facility] HospitalLwycfjpXPDPKMPPWY5807-48-80 10:00:00 Test Item Value Reference Range Interpretation Comments RDW (test code = RDW) 17.6 11.5-14.5 H [facility] HospitalBacqqdvNHMSQLNHNP7168-76-35 10:00:00 Test Item Value Reference Range Interpretation Comments MCHC (test code = MCHC) 35.0 32.0-36.0 N [facility] HospitalHcpsvaeACWAGSAQQB2745-77-16 10:00:00 Test Item Value Reference Range Interpretation Comments MCH (test code = MCH) 32.2 pg 27.0-31.0 H [facility] HospitalUuirelwIWFWQFZXZS4668-23-56 10:00:00 Test Item Value Reference Range Interpretation Comments Hct (test code = Hct) 27.4 36.0-48.0 L [facility] HospitalFtzdoipHLOINGSYZQ5179-10-95 10:00:00 Test Item Value Reference Range Interpretation Comments Hgb (test code = Hgb) 9.6 12.0-16.0 L [facility] HospitalZvnwndrBCEZLJAOSX3722-72-39 10:00:00 Test Item Value Reference Range Interpretation Comments MCV (test code = MCV) 91.8 81.0-99.0 N [facility] HospitalGcfdjbuQJRNMHWKFF2391-21-53 10:00:00 Test Item Value Reference Range Interpretation Comments WBC (test code = WBC) 12.4 3.7-10.4 H [facility] HospitalSlxyuzlKKYTXMLROB2740-44-01 10:00:00 Test Item Value Reference Range Interpretation Comments RBC (test code = RBC) 2.98 4.20-5.40 L [facility] HospitalOruvtviBNQYLFZJPI8509-06-24 10:00:00 Test Item Value Reference Range Interpretation Comments MPV (test code = MPV) 7.1 7.4-10.4 L [facility] HospitalIkeyeblYVOPTKUEAY7935-51-37 10:00:00 Test Item Value Reference Range Interpretation Comments Platelet (test code = Platelet) 221 133-450 N [facility] HospitalPzjvqzvOUMBOTPOXZ1820-79-61 10:00:00 Test Item Value Reference Range Interpretation Comments Atypical Lymphs (test code = Atypical 0.0 N Lymphs) [facility] HospitalWqvaelpPTHBWMEWUE0839-49-88 10:00:00 Test Item Value Reference Range Interpretation Comments NRBC (test code = NRBC) 1 [facility] HospitalOykxatfYXLQHTSBQH8416-72-99 10:00:00 Test Item Value Reference Range Interpretation Comments Myelocytes (test code = Myelocytes) 2.0 H [facility] HospitalEijlixmEHSJFZJCDM4207-18-49 10:00:00 Test Item Value Reference Range Interpretation Comments Lymphocytes (test code = Lymphocytes) 13.0 20.0-40.0 L [facility] HospitalVgpemjeCREMAIODZT7542-38-34 10:00:00 Test Item Value Reference Range Interpretation Comments Monocytes (test code = Monocytes) 0.0 2.0-12.0 L [facility] HospitalRmsuhxkKLZECULHUB2310-63-56 10:00:00 Test Item Value Reference Range Interpretation Comments Elliptocyte (test code = Slight A Elliptocyte) *ABN*(02/26/2013 05:00:00) [facility] HospitalFzfwyhgJNVHEZOEPB6230-96-93 10:00:00 Test Item Value Reference Range Interpretation Comments Large Plt (test code = Slight *ABN*(02/26/2013 A Large Plt) 05:00:00) [facility] HospitalXfbgtdzKTZNBHYZVE6805-85-02 10:00:00 Test Item Value Reference Range Interpretation Comments Tot Cell Ct (test code = Tot Cell Ct) 100 1 [facility] HospitalYtfhiaqZNTBXVXEKO7022-88-10 10:00:00 Test Item Value Reference Range Interpretation Comments Anisocyte (test code = 1+ *ABN*(02/26/2013 A Anisocyte) 05:00:00) [facility] HospitalIjsnrchUXIPSCMAJE9396-08-11 10:00:00 Test Item Value Reference Range Interpretation Comments Polychrom (test code = Slight (02/26/2013 N Polychrom) 05:00:00) [facility] HospitalKzqmzkzDXOOMGDLOQ2251-25-75 10:00:00 Test Item Value Reference Range Interpretation Comments Segs-Bands # (test code = Segs-Bands #) 10.5 1.5-8.1 H [facility] HospitalGtcinimGJFWAMAVZI3115-84-85 10:00:00 Test Item Value Reference Range Interpretation Comments Lymphocytes # (test code = Lymphocytes 1.6 1.0-5.5 N #) [facility] HospitalHuseqgaBZYPHJUGXS9692-26-00 10:00:00 Test Item Value Reference Range Interpretation Comments Monocytes # (test code 0.0 See_Comment N [Aut omated message] The = Monocytes #) system which generated this result tra nsmitted reference range : <=0.8. The reference r katie was not used to int erpret this result as normal/abnormal . [facility] HospitalPcdrfvyOIIWVSGATV1876-97-27 10:00:00 Test Item Value Reference Range Interpretation Comments Bands (test code = 7.0 See_Comment N [Automat ed message] The Bands) system which ge nerated this result transmit matteo reference range : <=11.0. The reference r katie was not used to interpr et this result as miesha l/abnormal. [facility] HospitalZslkddgELUFOCPEFZ4940-97-27 10:00:00 Test Item Value Reference Range Interpretation Comments Segs (test code = Segs) 78.0 45.0-75.0 H [facility] HospitalSvrvquqOHQNMXNSMK7906-75-32 10:00:00 Test Item Value Reference Range Interpretation Comments RDW (test code = RDW) 17.6 11.5-14.5 H [facility] HospitalPhotjmhAYWPVVLONM0368-20-75 10:00:00 Test Item Value Reference Range Interpretation Comments MCHC (test code = MCHC) 35.0 32.0-36.0 N [facility] HospitalJxenbkqAWEHGZWISU6716-67-33 10:00:00 Test Item Value Reference Range Interpretation Comments MCH (test code = MCH) 32.2 pg 27.0-31.0 H [facility] HospitalRqndztqGRVMMYWZRS5555-81-61 10:00:00 Test Item Value Reference Range Interpretation Comments Hct (test code = Hct) 27.4 36.0-48.0 L [facility] HospitalYbuxzboSYBDCRCHQQ8304-38-63 10:00:00 Test Item Value Reference Range Interpretation Comments Hgb (test code = Hgb) 9.6 12.0-16.0 L [facility] HospitalRzbqcocPSQTOPQJKL0377-86-26 10:00:00 Test Item Value Reference Range Interpretation Comments MCV (test code = MCV) 91.8 81.0-99.0 N [facility] HospitalGvvfnozLWWUSOWZLH1709-42-69 10:00:00 Test Item Value Reference Range Interpretation Comments WBC (test code = WBC) 12.4 3.7-10.4 H [facility] HospitalQxanftqKXRUSQGFHR8648-48-37 10:00:00 Test Item Value Reference Range Interpretation Comments RBC (test code = RBC) 2.98 4.20-5.40 L [facility] HospitalQuiufqeOZVSDWYZFK6744-11-36 10:00:00 Test Item Value Reference Range Interpretation Comments MPV (test code = MPV) 7.1 7.4-10.4 L [facility] HospitalKrrpcjcDVTCLYEDLK5642-96-25 10:00:00 Test Item Value Reference Range Interpretation Comments Platelet (test code = Platelet) 221 133-450 N [facility]GyoaxpsZYFBMFGWI0023-91-26 20:11:00 Test Item Value Reference Range Interpretation Comments Vanco Tr TND (test code = Vanco Tr TND) 1:00 [facility] HospitalAwtbqipHLGIFIVWH7936-45-60 20:11:00 Test Item Value Reference Range Interpretation Comments Vanco Tr (test code = Vanco Tr) 20.1 [facility] HospitalIyzzipfFPTOZNIHE7086-07-92 20:11:00 Test Item Value Reference Range Interpretation Comments Vanco Tr TND (test code = Vanco Tr TND) 1:00 [facility] HospitalXpkrtewAKKJIRJMQ3476-44-46 20:11:00 Test Item Value Reference Range Interpretation Comments Vanco Tr (test code = Vanco Tr) 20.1 [facility] HospitalVrnbbyvIQWBWVPJR9857-11-00 20:11:00 Test Item Value Reference Range Interpretation Comments Vanco Tr TND (test code = Vanco Tr TND) 1:00 [facility] HospitalVolddhvVEMQEDHLC4783-33-31 20:11:00 Test Item Value Reference Range Interpretation Comments Vanco Tr (test code = Vanco Tr) 20.1 [facility] HospitalSjwsigxEIUKUUFBH2505-36-28 20:11:00 Test Item Value Reference Range Interpretation Comments Vanco Tr TND (test code = Vanco Tr TND) 1:00 [facility] HospitalXaodcdkLZUCYCEZI8245-25-62 20:11:00 Test Item Value Reference Range Interpretation Comments Vanco Tr (test code = Vanco Tr) 20.1 [facility] HospitalBlubqgfVQROYFGPI9731-05-02 20:11:00 Test Item Value Reference Range Interpretation Comments Vanco Tr TND (test code = Vanco Tr TND) 1:00 [facility] HospitalButnhapYVSGONTRM4005-52-46 20:11:00 Test Item Value Reference Range Interpretation Comments Mauryo Tr (test code = Vanco Tr) 20.1 [facility] HospitalEbnztgtLLSLHFDUO4658-47-97 20:11:00 Test Item Value Reference Range Interpretation Comments Vanco Tr TND (test code = Vanco Tr TND) 1:00 [facility] HospitalBbyaztiNOYLLEFHT2806-30-15 20:11:00 Test Item Value Reference Range Interpretation Comments Vanco Tr (test code = Vanco Tr) 20.1 [facility] HospitalZnhlazaBVHQBDQSO5191-67-39 19:00:00 Test Item Value Reference Range Interpretation Comments Ca Norm WB (test code = Ca Norm WB) 1.14 1.05-1.25 N [facility] HospitalEcvtpkcXAEMSXRHI4567-56-29 19:00:00 Test Item Value Reference Range Interpretation Comments Ca Ion WB (test code = Ca Ion WB) 1.10 1.05-1.25 N [facility] HospitalQnhyannBHDSOROAT1049-78-80 19:00:00 Test Item Value Reference Range Interpretation Comments Ca Norm WB (test code = Ca Norm WB) 1.14 1.05-1.25 N [facility] HospitalVbjqaktAWGRNVDHO5602-49-48 19:00:00 Test Item Value Reference Range Interpretation Comments Ca Ion WB (test code = Ca Ion WB) 1.10 1.05-1.25 N [facility] HospitalLfgieuyNUFALXULB1300-94-10 19:00:00 Test Item Value Reference Range Interpretation Comments Ca Norm WB (test code = Ca Norm WB) 1.14 1.05-1.25 N [facility] HospitalYbhxicnSCWGRSKEP1974-93-20 19:00:00 Test Item Value Reference Range Interpretation Comments Ca Ion WB (test code = Ca Ion WB) 1.10 1.05-1.25 N [facility] HospitalXmvrrgoSYROYCYUD5122-61-01 19:00:00 Test Item Value Reference Range Interpretation Comments Ca Norm WB (test code = Ca Norm WB) 1.14 1.05-1.25 N [facility] HospitalBjfwxqvDDSJWVAYV0834-92-61 19:00:00 Test Item Value Reference Range Interpretation Comments Ca Ion WB (test code = Ca Ion WB) 1.10 1.05-1.25 N [facility] HospitalQdoagfnMCEUTLLLA7365-60-04 19:00:00 Test Item Value Reference Range Interpretation Comments Ca Norm WB (test code = Ca Norm WB) 1.14 1.05-1.25 N [facility] HospitalHreozszKULRZXAGF6771-92-34 19:00:00 Test Item Value Reference Range Interpretation Comments Ca Ion WB (test code = Ca Ion WB) 1.10 1.05-1.25 N [facility] HospitalUdilytlSZLKZMJXS4214-44-64 19:00:00 Test Item Value Reference Range Interpretation Comments Ca Norm WB (test code = Ca Norm WB) 1.14 1.05-1.25 N [facility] HospitalKjhvmhsMVKYSHDFT3318-49-91 19:00:00 Test Item Value Reference Range Interpretation Comments Ca Ion WB (test code = Ca Ion WB) 1.10 1.05-1.25 N [facility] HospitalQktswlrBKLILIMLG8184-57-49 14:10:18 Test Item Value Reference Range Interpretation Comments Mode Art (test code = A/C (02/25/2013 N Mode Art) 09:10:18) [facility] HospitalLuoypchXUBWMTVEC9064-60-77 14:10:18 Test Item Value Reference Range Interpretation Comments Allens Art (test code = N/A (02/25/2013 N Allens Art) 09:10:18) [facility] HospitalGhqavtzXOKABCUOD0287-76-86 14:10:18 Test Item Value Reference Range Interpretation Comments Temp Art (test code = Temp Art) 37.0 [facility] HospitalZfqqirdNKWWZCBYN0992-22-62 14:10:18 Test Item Value Reference Range Interpretation Comments Site Art (test code = A Line (02/25/2013 N Site Art) 09:10:18) [facility] HospitalOxxouiiNSNOZDASU9057-80-99 14:10:18 Test Item Value Reference Range Interpretation Comments O2 Sat Art (test code = O2 Sat Art) 94.6 95.0-100.0 L [facility] HospitalCymvhybCGBPRUIKN1625-77-35 14:10:18 Test Item Value Reference Range Interpretation Comments BE Art (test code = 0 See_Comment N [Automa matteo message] The BE Art) system which ge nerated this result transmit matteo reference range : <=2. The reference range was not used to interpr et this result as miesha l/abnormal. [facility] HospitalFpwnawdBLNOJILKV0878-61-13 14:10:18 Test Item Value Reference Range Interpretation Comments HCO3 Art (test code = HCO3 Art) 23 22-26 N [facility] HospitalKxfvbjzRBSNWBAKO9929-54-33 14:10:18 Test Item Value Reference Range Interpretation Comments pO2 Art (test code = pO2 Art) 67 80-100 L [facility] HospitalCsajtlnIYGYMPOER8742-97-72 14:10:18 Test Item Value Reference Range Interpretation Comments pCO2 Art (test code = pCO2 Art) 30 35-45 A [facility] HospitalBogirirUYODUMXTS2697-41-55 14:10:18 Test Item Value Reference Range Interpretation Comments pH Art (test code = pH Art) 7.49 7.35-7.45 H [facility] HospitalBdxhzdpHYKAIKAAB1616-90-98 14:10:18 Test Item Value Reference Range Interpretation Comments PEEP Art (test code = PEEP Art) 10.0 [facility] HospitalHfasaoaAKMNNKLYZ3552-88-19 14:10:18 Test Item Value Reference Range Interpretation Comments FiO2 Art (test code = FiO2 Art) 40.0 [facility] HospitalMfqizhhCNCJNCZUN7070-09-98 14:10:18 Test Item Value Reference Range Interpretation Comments Rate Art (test code = Rate Art) 12 [facility] HospitalYxeixklERWXYTXVK6669-77-83 14:10:18 Test Item Value Reference Range Interpretation Comments Vt Art (test code = Vt Art) 400 [facility] HospitalHgsqlosHGJQDUWDF1734-92-01 14:10:18 Test Item Value Reference Range Interpretation Comments Mode Art (test code = A/C (02/25/2013 N Mode Art) 09:10:18) [facility] HospitalBxwhckeNYMVBDWXZ5670-49-45 14:10:18 Test Item Value Reference Range Interpretation Comments Allens Art (test code = N/A (02/25/2013 N Allens Art) 09:10:18) [facility] HospitalFcyiyvgFJZOSXWVA8186-96-00 14:10:18 Test Item Value Reference Range Interpretation Comments Temp Art (test code = Temp Art) 37.0 [facility] HospitalPmyyfhkJYCSZUHBY9774-77-28 14:10:18 Test Item Value Reference Range Interpretation Comments Site Art (test code = A Line (02/25/2013 N Site Art) 09:10:18) [facility] HospitalCamnqgtGXDUXEPEQ0699-54-20 14:10:18 Test Item Value Reference Range Interpretation Comments O2 Sat Art (test code = O2 Sat Art) 94.6 95.0-100.0 L [facility] HospitalOmjfavqZQMBUIBPI0949-11-85 14:10:18 Test Item Value Reference Range Interpretation Comments BE Art (test code = 0 See_Comment N [Automa matteo message] The BE Art) system which ge nerated this result transmit matteo reference range : <=2. The reference range was not used to interpr et this result as miesha l/abnormal. [facility] HospitalUqxqqhpZVLSSYZUP3535-46-54 14:10:18 Test Item Value Reference Range Interpretation Comments HCO3 Art (test code = HCO3 Art) 23 22-26 N [facility] HospitalRmqfqfrZUIXSHEWE1029-54-64 14:10:18 Test Item Value Reference Range Interpretation Comments pO2 Art (test code = pO2 Art) 67 80-100 L [facility] HospitalMlnhrzpANDBHFMLS3163-07-54 14:10:18 Test Item Value Reference Range Interpretation Comments pCO2 Art (test code = pCO2 Art) 30 35-45 A [facility] HospitalMwomlgjDCNBHRUID2901-27-50 14:10:18 Test Item Value Reference Range Interpretation Comments pH Art (test code = pH Art) 7.49 7.35-7.45 H [facility] HospitalHvcmtdjEWQSYUKVX8585-17-04 14:10:18 Test Item Value Reference Range Interpretation Comments PEEP Art (test code = PEEP Art) 10.0 [facility]AzhmdxvENMHCRGNH6318-29-61 14:10:18 Test Item Value Reference Range Interpretation Comments FiO2 Art (test code = FiO2 Art) 40.0 [facility] HospitalNwehohcNLUTMFOBJ3178-11-66 14:10:18 Test Item Value Reference Range Interpretation Comments Rate Art (test code = Rate Art) 12 [facility] HospitalOynlpftVBHXXEGRM9799-68-88 14:10:18 Test Item Value Reference Range Interpretation Comments Vt Art (test code = Vt Art) 400 [facility] HospitalMbvkwkcOVRJIHBYM0659-61-89 14:10:18 Test Item Value Reference Range Interpretation Comments Mode Art (test code = A/C (02/25/2013 N Mode Art) 09:10:18) [facility] HospitalFeguqlsTRAUCTOWJ8721-12-61 14:10:18 Test Item Value Reference Range Interpretation Comments Allens Art (test code = N/A (02/25/2013 N Allens Art) 09:10:18) [facility] HospitalWduxnjlAKCFJXLRB0947-53-52 14:10:18 Test Item Value Reference Range Interpretation Comments Temp Art (test code = Temp Art) 37.0 [facility] HospitalChxuyzcDRDRIEBZX1689-18-44 14:10:18 Test Item Value Reference Range Interpretation Comments Site Art (test code = A Line (02/25/2013 N Site Art) 09:10:18) [facility] HospitalUdymexsEOMSZVMJX9436-00-99 14:10:18 Test Item Value Reference Range Interpretation Comments O2 Sat Art (test code = O2 Sat Art) 94.6 95.0-100.0 L [facility] HospitalZjsiiobOJJXMMDUR9234-05-82 14:10:18 Test Item Value Reference Range Interpretation Comments BE Art (test code = 0 See_Comment N [Automa matteo message] The BE Art) system which ge nerated this result transmit matteo reference range : <=2. The reference range was not used to interpr et this result as miesha l/abnormal. [facility] HospitalBudawvsBIZSORXHR3281-21-63 14:10:18 Test Item Value Reference Range Interpretation Comments HCO3 Art (test code = HCO3 Art) 23 22-26 N [facility] HospitalExlmrnlKWCZQIEHS5163-17-76 14:10:18 Test Item Value Reference Range Interpretation Comments pO2 Art (test code = pO2 Art) 67 80-100 L [facility] HospitalAusnkewHOAEVJQUI4899-80-46 14:10:18 Test Item Value Reference Range Interpretation Comments pCO2 Art (test code = pCO2 Art) 30 35-45 A [facility] HospitalWpclcouLLVJTCOYX8140-65-08 14:10:18 Test Item Value Reference Range Interpretation Comments pH Art (test code = pH Art) 7.49 7.35-7.45 H [facility] HospitalDgzspyrKVHEPILCU2930-40-73 14:10:18 Test Item Value Reference Range Interpretation Comments PEEP Art (test code = PEEP Art) 10.0 [facility] HospitalDrquxiaSIYQJFTSC5154-78-89 14:10:18 Test Item Value Reference Range Interpretation Comments FiO2 Art (test code = FiO2 Art) 40.0 [facility] HospitalZqdraksTDDZQOXHM8654-50-17 14:10:18 Test Item Value Reference Range Interpretation Comments Rate Art (test code = Rate Art) 12 [facility] HospitalNxihnosGMPPWJKRB9142-02-83 14:10:18 Test Item Value Reference Range Interpretation Comments Vt Art (test code = Vt Art) 400 [facility] HospitalZdsgiuhAEKKAGXVP7775-18-52 14:10:18 Test Item Value Reference Range Interpretation Comments Mode Art (test code = A/C (02/25/2013 N Mode Art) 09:10:18) [facility] HospitalCxplmxeAKCPLHNUD3324-32-05 14:10:18 Test Item Value Reference Range Interpretation Comments Allens Art (test code = N/A (02/25/2013 N Allens Art) 09:10:18) [facility] HospitalHrrkamyWFKMGZCPF1734-93-77 14:10:18 Test Item Value Reference Range Interpretation Comments Temp Art (test code = Temp Art) 37.0 [facility] HospitalYfefadeLRYURERXG9036-81-35 14:10:18 Test Item Value Reference Range Interpretation Comments Site Art (test code = A Line (02/25/2013 N Site Art) 09:10:18) [facility] HospitalNxniwxrFSMLCDYMX9740-70-97 14:10:18 Test Item Value Reference Range Interpretation Comments O2 Sat Art (test code = O2 Sat Art) 94.6 95.0-100.0 L [facility] HospitalVwshpdhQTHMVICXK3961-80-82 14:10:18 Test Item Value Reference Range Interpretation Comments BE Art (test code = 0 See_Comment N [Automa matteo message] The BE Art) system which ge nerated this result transmit matteo reference range : <=2. The reference range was not used to interpr et this result as miesha l/abnormal. [facility] HospitalQkoysgxSJLEUJTSX8524-31-89 14:10:18 Test Item Value Reference Range Interpretation Comments HCO3 Art (test code = HCO3 Art) 23 22-26 N [facility] HospitalFdkfcuvGYPSOMUBE3779-57-27 14:10:18 Test Item Value Reference Range Interpretation Comments pO2 Art (test code = pO2 Art) 67 80-100 L [facility] HospitalHevxqmvUEHYUXIDR0551-47-76 14:10:18 Test Item Value Reference Range Interpretation Comments pCO2 Art (test code = pCO2 Art) 30 35-45 A [facility] HospitalZzxqhftYFBQLGYON6885-84-14 14:10:18 Test Item Value Reference Range Interpretation Comments pH Art (test code = pH Art) 7.49 7.35-7.45 H [facility] HospitalSjkgdoxQDHQFPQWG7288-72-91 14:10:18 Test Item Value Reference Range Interpretation Comments PEEP Art (test code = PEEP Art) 10.0 [facility] HospitalZkvpfabEXFNODDXM1420-85-20 14:10:18 Test Item Value Reference Range Interpretation Comments FiO2 Art (test code = FiO2 Art) 40.0 [facility] HospitalNrnhbxzKZZDVDURZ8949-19-51 14:10:18 Test Item Value Reference Range Interpretation Comments Rate Art (test code = Rate Art) 12 [facility] HospitalTskvtfjHXJPCVZSL5525-17-98 14:10:18 Test Item Value Reference Range Interpretation Comments Vt Art (test code = Vt Art) 400 [facility] HospitalJfafggaWCWTEELJX9422-22-06 14:10:18 Test Item Value Reference Range Interpretation Comments Mode Art (test code = A/C (02/25/2013 N Mode Art) 09:10:18) [facility] HospitalApflejjRWJLQLKAQ6187-21-89 14:10:18 Test Item Value Reference Range Interpretation Comments Allens Art (test code = N/A (02/25/2013 N Allens Art) 09:10:18) [facility] HospitalSxdosqiJVKVGBHEP1343-89-39 14:10:18 Test Item Value Reference Range Interpretation Comments Temp Art (test code = Temp Art) 37.0 [facility] HospitalWzldwyyOKQSJWTLH6743-24-03 14:10:18 Test Item Value Reference Range Interpretation Comments Site Art (test code = A Line (02/25/2013 N Site Art) 09:10:18) [facility] HospitalNavzhfeHJWUYLXTT6695-29-39 14:10:18 Test Item Value Reference Range Interpretation Comments O2 Sat Art (test code = O2 Sat Art) 94.6 95.0-100.0 L [facility] HospitalRjapuxaKMXTLEGLY4415-56-65 14:10:18 Test Item Value Reference Range Interpretation Comments BE Art (test code = 0 See_Comment N [Automa matteo message] The BE Art) system which ge nerated this result transmit matteo reference range : <=2. The reference range was not used to interpr et this result as miesha l/abnormal. [facility] HospitalWnwwfakOPMWRQCEK0578-80-66 14:10:18 Test Item Value Reference Range Interpretation Comments HCO3 Art (test code = HCO3 Art) 23 22-26 N [facility] HospitalUavnzzsXIFUOKGLP3970-61-30 14:10:18 Test Item Value Reference Range Interpretation Comments pO2 Art (test code = pO2 Art) 67 80-100 L [facility] HospitalPwujxfvSKGREQYHD4027-72-14 14:10:18 Test Item Value Reference Range Interpretation Comments pCO2 Art (test code = pCO2 Art) 30 35-45 A [facility] HospitalJklccoyIOCAIDRFW0265-49-37 14:10:18 Test Item Value Reference Range Interpretation Comments pH Art (test code = pH Art) 7.49 7.35-7.45 H [facility] HospitalNpljtrtHIQRHTHHU2777-53-08 14:10:18 Test Item Value Reference Range Interpretation Comments PEEP Art (test code = PEEP Art) 10.0 [facility] HospitalUqgoqgyOUUEHHGRB5059-19-39 14:10:18 Test Item Value Reference Range Interpretation Comments FiO2 Art (test code = FiO2 Art) 40.0 [facility] HospitalNzmjsajOXBLLVKQW6438-66-80 14:10:18 Test Item Value Reference Range Interpretation Comments Rate Art (test code = Rate Art) 12 [facility] HospitalKiqfghiZOHHGDZNZ8278-10-74 14:10:18 Test Item Value Reference Range Interpretation Comments Vt Art (test code = Vt Art) 400 [facility] HospitalDkpyjexATSORJTWE9814-31-62 14:10:18 Test Item Value Reference Range Interpretation Comments Mode Art (test code = A/C (02/25/2013 N Mode Art) 09:10:18) [facility] HospitalOlrigueHLPDFUJQD2366-05-26 14:10:18 Test Item Value Reference Range Interpretation Comments Allens Art (test code = N/A (02/25/2013 N Allens Art) 09:10:18) [facility] HospitalSikipdfVKMQZMMWM7564-63-25 14:10:18 Test Item Value Reference Range Interpretation Comments Temp Art (test code = Temp Art) 37.0 [facility] HospitalHdjiuktCJIZTUFNE2625-52-14 14:10:18 Test Item Value Reference Range Interpretation Comments Site Art (test code = A Line (02/25/2013 N Site Art) 09:10:18) [facility] HospitalQizrvqxTBDPSPWZO6819-68-65 14:10:18 Test Item Value Reference Range Interpretation Comments O2 Sat Art (test code = O2 Sat Art) 94.6 95.0-100.0 L [facility] HospitalMhcpczkPSSCSQHMQ5809-15-07 14:10:18 Test Item Value Reference Range Interpretation Comments BE Art (test code = 0 See_Comment N [Automa matteo message] The BE Art) system which ge nerated this result transmit matteo reference range : <=2. The reference range was not used to interpr et this result as miesha l/abnormal. [facility] HospitalQutcwsvLZKPQPNMU8701-15-95 14:10:18 Test Item Value Reference Range Interpretation Comments HCO3 Art (test code = HCO3 Art) 23 22-26 N [facility] HospitalFsuszhdQUMVTLDPA0780-85-37 14:10:18 Test Item Value Reference Range Interpretation Comments pO2 Art (test code = pO2 Art) 67 80-100 L [facility] HospitalKbnvrxjSGDSEQQYU9050-16-74 14:10:18 Test Item Value Reference Range Interpretation Comments pCO2 Art (test code = pCO2 Art) 30 35-45 A [facility] HospitalGkwfuupDMNZMOQIE6667-78-33 14:10:18 Test Item Value Reference Range Interpretation Comments pH Art (test code = pH Art) 7.49 7.35-7.45 H [facility]CqsospnLFEHDPUTA2629-93-27 14:10:18 Test Item Value Reference Range Interpretation Comments PEEP Art (test code = PEEP Art) 10.0 [facility]QygiofoPPEYIZLCD0315-92-61 14:10:18 Test Item Value Reference Range Interpretation Comments FiO2 Art (test code = FiO2 Art) 40.0 [facility] HospitalBqelpqnLCGVPIGKE6992-96-93 14:10:18 Test Item Value Reference Range Interpretation Comments Rate Art (test code = Rate Art) 12 [facility] CenterHcccbvbPILBITUPB2940-79-37 14:10:18 Test Item Value Reference Range Interpretation Comments Vt Art (test code = Vt Art) 400 [facility] [employer] [facility] FVTSLRL0017-84-50 12:55:00 Test Item Value Reference Range Interpretation Comments Antibody Scrn (test Negative (02/25/2013 N code = Antibody Scrn) 07:55:00) [facility] [employer] WKUEBVM0508-36-06 12:55:00 Test Item Value Reference Range Interpretation Comments ABO/Rh (test code = ABO/Rh) A POS [facility] [employer] BPDSYPD5064-26-27 12:55:00 Test Item Value Reference Range Interpretation Comments Antibody Scrn (test Negative (02/25/2013 N code = Antibody Scrn) 07:55:00) [facility] [employer] BGSVSLL4754-63-28 12:55:00 Test Item Value Reference Range Interpretation Comments ABO/Rh (test code = ABO/Rh) A POS [facility] [employer] KBNEVVX8561-51-20 12:55:00 Test Item Value Reference Range Interpretation Comments Antibody Scrn (test Negative (02/25/2013 N code = Antibody Scrn) 07:55:00) [facility] [employer] IDJSLQK8579-81-94 12:55:00 Test Item Value Reference Range Interpretation Comments ABO/Rh (test code = ABO/Rh) A POS [facility] [employer] NetworksBLO[employer] RDFNAHI3103-03-82 12:55:00 Test Item Value Reference Range Interpretation Comments Antibody Scrn (test Negative (02/25/2013 N code = Antibody Scrn) 07:55:00) [facility] NNCJRUA5381-06-67 12:55:00 Test Item Value Reference Range Interpretation Comments ABO/Rh (test code = ABO/Rh) A [facility] WEOAWZP7238-64-57 12:55:00 Test Item Value Reference Range Interpretation Comments Antibody Scrn (test Negative (02/25/2013 N code = Antibody Scrn) 07:55:00) [facility] [id number] 12:55:00 Test Item Value Reference Range Interpretation Comments ABO/Rh (test code = ABO/Rh) A [facility] [id number] 12:55:00 Test Item Value Reference Range Interpretation Comments Antibody Scrn (test Negative (02/25/2013 N code = Antibody Scrn) 07:55:00) [facility] GCEZIII9592-03-09 12:55:00 Test Item Value Reference Range Interpretation Comments ABO/Rh (test code = ABO/Rh) A [facility] JDRBFRP9824-68-63 12:16:00 Test Item Value Reference Range Interpretation Comments RBC product (test code Product available N = RBC product) (02/25/2013 07:16:00) [facility] [id number] 12:16:00 Test Item Value Reference Range Interpretation Comments RBC product (test code Product available N = RBC product) (02/25/2013 07:16:00) [facility] [id number] 12:16:00 Test Item Value Reference Range Interpretation Comments RBC product (test code Product available N = RBC product) (02/25/2013 07:16:00) [facility] [id number] 12:16:00 Test Item Value Reference Range Interpretation Comments RBC product (test code Product available N = RBC product) (02/25/2013 07:16:00) [facility] [id number] 12:16:00 Test Item Value Reference Range Interpretation Comments RBC product (test code Product available N = RBC product) (02/25/2013 07:16:00) [facility] BANK [id number] 12:16:00 Test Item Value Reference Range Interpretation Comments RBC product (test code Product available N = RBC product) (02/25/2013 07:16:00) [facility]HpelwhyUIPBQLFHDB2543-78-36 09:30:00 Test Item Value Reference Range Interpretation Comments Eosinophils (test code = 0.4 See_Comment N [A utomated message] The Eosinophils) system which ge nerated this result tra nsmitted reference range : <=4.0. The reference r katie was not used to int erpret this result as normal/abnormal . [facility] HospitalFwcywgeZDUKOKBIFY4521-43-08 09:30:00 Test Item Value Reference Range Interpretation Comments Basophils (test code = 0.3 See_Comment N [Aut omated message] The Basophils) system which ge nerated this result tra nsmitted reference range : <=1.0. The reference r katie was not used to int erpret this result as normal/abnormal . [facility] HospitalOtdfgctAOQJLSZWWG7589-17-87 09:30:00 Test Item Value Reference Range Interpretation Comments Eosinophils (test code = 0.4 See_Comment N [A utomated message] The Eosinophils) system which ge nerated this result tra nsmitted reference range : <=4.0. The reference r katie was not used to int erpret this result as normal/abnormal . [facility] HospitalRwtlhchLEGAVLXEZA8695-89-49 09:30:00 Test Item Value Reference Range Interpretation Comments Basophils (test code = 0.3 See_Comment N [Aut omated message] The Basophils) system which ge nerated this result tra nsmitted reference range : <=1.0. The reference r katie was not used to int erpret this result as normal/abnormal . [facility] HospitalEpltqvzRDIANPSMQF9609-27-75 09:30:00 Test Item Value Reference Range Interpretation Comments Eosinophils (test code = 0.4 See_Comment N [A utomated message] The Eosinophils) system which ge nerated this result tra nsmitted reference range : <=4.0. The reference r katie was not used to int erpret this result as normal/abnormal . [facility] HospitalUwfeenzGBMQYUVAXR6636-37-26 09:30:00 Test Item Value Reference Range Interpretation Comments Basophils (test code = 0.3 See_Comment N [Aut omated message] The Basophils) system which ge nerated this result tra nsmitted reference range : <=1.0. The reference r katie was not used to int erpret this result as normal/abnormal . [facility] HospitalTfzxapuKSKDTOELNS6145-35-24 09:30:00 Test Item Value Reference Range Interpretation Comments Eosinophils (test code = 0.4 See_Comment N [A utomated message] The Eosinophils) system which ge nerated this result tra nsmitted reference range : <=4.0. The reference r katie was not used to int erpret this result as normal/abnormal . [facility] HospitalSprfsjoIROGQSBFCD3234-36-14 09:30:00 Test Item Value Reference Range Interpretation Comments Basophils (test code = 0.3 See_Comment N [Aut omated message] The Basophils) system which ge nerated this result tra nsmitted reference range : <=1.0. The reference r katie was not used to int erpret this result as normal/abnormal . [facility] HospitalFutibbiMTJORVYRDO6337-61-22 09:30:00 Test Item Value Reference Range Interpretation Comments Eosinophils (test code = 0.4 See_Comment N [A utomated message] The Eosinophils) system which ge nerated this result tra nsmitted reference range : <=4.0. The reference r katie was not used to int erpret this result as normal/abnormal . [facility] HospitalYrbweaqKZVOGRBNIT1066-97-47 09:30:00 Test Item Value Reference Range Interpretation Comments Basophils (test code = 0.3 See_Comment N [Aut omated message] The Basophils) system which ge nerated this result tra nsmitted reference range : <=1.0. The reference r katie was not used to int erpret this result as normal/abnormal . [facility] HospitalYmmjcwgZQNFOFAVOS3220-96-39 09:30:00 Test Item Value Reference Range Interpretation Comments Eosinophils (test code = 0.4 See_Comment N [A utomated message] The Eosinophils) system which ge nerated this result tra nsmitted reference range : <=4.0. The reference r katie was not used to int erpret this result as normal/abnormal . [facility] HospitalPcqsmuoTDUFSUAKEF7321-60-77 09:30:00 Test Item Value Reference Range Interpretation Comments Basophils (test code = 0.3 See_Comment N [Aut omated message] The Basophils) system which ge nerated this result tra nsmitted reference range : <=1.0. The reference r katie was not used to int erpret this result as normal/abnormal . [facility] HospitalNhlvzpxAMDXGCRIO6447-60-37 19:56:06 Test Item Value Reference Range Interpretation Comments Rate Art (test code = Rate Art) 12 [facility] HospitalEtxomznQFMQQFYMF2674-33-50 19:56:06 Test Item Value Reference Range Interpretation Comments Vt Art (test code = Vt Art) 400 [facility] HospitalSigxbtiWPDNWJFXG5400-83-63 19:56:06 Test Item Value Reference Range Interpretation Comments Rate Art (test code = Rate Art) 12 [facility] HospitalWbmclwsRYLGYLXPL1469-80-40 19:56:06 Test Item Value Reference Range Interpretation Comments Vt Art (test code = Vt Art) 400 [facility] HospitalKrofqauNZPMOICRK1353-73-87 19:56:06 Test Item Value Reference Range Interpretation Comments Rate Art (test code = Rate Art) 12 [facility] HospitalJceogiyFHTKKMYLU6684-86-40 19:56:06 Test Item Value Reference Range Interpretation Comments Vt Art (test code = Vt Art) 400 [facility] HospitalTzqzzhyUCVZNFISB7354-27-46 19:56:06 Test Item Value Reference Range Interpretation Comments Rate Art (test code = Rate Art) 12 [facility] HospitalFirnhlpCOIMIPSKD3481-45-80 19:56:06 Test Item Value Reference Range Interpretation Comments Vt Art (test code = Vt Art) 400 [facility] HospitalMgbkuorWPUDIEQDM4123-93-76 19:56:06 Test Item Value Reference Range Interpretation Comments Rate Art (test code = Rate Art) 12 [facility] HospitalWveqdqpZBHJJFSQR4070-52-49 19:56:06 Test Item Value Reference Range Interpretation Comments Vt Art (test code = Vt Art) 400 [facility] HospitalCuipbyjXQMIVUAXM2311-63-81 19:56:06 Test Item Value Reference Range Interpretation Comments Rate Art (test code = Rate Art) [address] [place], [place] [address]-08-31 19:56:06 Test Item Value Reference Range Interpretation Comments Vt Art (test code = Vt Art) 400 [facility] HospitalUxsggjxTBVTQYRMD1629-43-03 18:00:00 Test Item Value Reference Range Interpretation Comments Phosphorus (test code = Phosphorus) 3.2 2.5-4.5 N [facility] HospitalQnbglbaNBVSFRBDG4262-31-01 18:00:00 Test Item Value Reference Range Interpretation Comments Phosphorus (test code = Phosphorus) 3.2 2.5-4.5 N [facility] HospitalQflqmfxNYSVHKRZU2928-17-50 18:00:00 Test Item Value Reference Range Interpretation Comments Phosphorus (test code = Phosphorus) 3.2 2.5-4.5 N [facility] HospitalYoptceiMWOBKAOVS7754-61-26 18:00:00 Test Item Value Reference Range Interpretation Comments Phosphorus (test code = Phosphorus) 3.2 2.5-4.5 N [facility] HospitalKefycwqPSXFTKNPI8624-03-22 18:00:00 Test Item Value Reference Range Interpretation Comments Phosphorus (test code = Phosphorus) 3.2 2.5-4.5 N [facility] HospitalEjwgtlhKJIQCEUQI3184-13-76 18:00:00 Test Item Value Reference Range Interpretation Comments Phosphorus (test code = Phosphorus) 3.2 2.5-4.5 N [facility] HospitalMwtizmcLSNBHBNCNL1640-94-37 08:30:29 Test Item Value Reference Range Interpretation Comments Plav Effect Plt (test code = Plav 232 Effect Plt) [facility] HospitalHixttslIPODFKTFSO9732-31-57 08:30:29 Test Item Value Reference Range Interpretation Comments Plav Effect Plt (test code = Plav 232 Effect Plt) [facility] HospitalBvbbevyVMPGYKPOVR5442-18-18 08:30:29 Test Item Value Reference Range Interpretation Comments Plav Effect Plt (test code = Plav 232 Effect Plt) [facility] HospitalLprvnzkADHLMCMHZW3345-61-63 08:30:29 Test Item Value Reference Range Interpretation Comments Plav Effect Plt (test code = Plav 232 Effect Plt) [facility] HospitalDevymdnYIXXPRLVFL7770-52-77 08:30:29 Test Item Value Reference Range Interpretation Comments Plav Effect Plt (test code = Plav 232 Effect Plt) [facility] HospitalTbocjhrLYBQGCSGEU6492-83-05 08:30:29 Test Item Value Reference Range Interpretation Comments Plav Effect Plt (test code = Plav 232 Effect Plt) [facility] HospitalNndjdqlYAASFMSDO7274-73-79 07:55:00 Test Item Value Reference Range Interpretation Comments CK MB Index (test 0.6 See_Comment N [Automate d message] The code = CK MB Index) system w [facility] generated this result transmit matteo reference range : <=2.5. The reference range was not used to interpr et this result as miesha l/abnormal. [place] 785993-08-31 07:55:00 Test Item Value Reference Range Interpretation Comments Ca Norm WB (test code = Ca Norm WB) 0.99 1.05-1.25 L [facility] HospitalOcwnffjALPMNSMIE0843-98-00 07:55:00 Test Item Value Reference Range Interpretation Comments Ca Ion WB (test code = Ca Ion WB) 0.97 1.05-1.25 L [facility] HospitalPiogwzxIJJMUWSKD1970-80-83 07:55:00 Test Item Value Reference Range Interpretation Comments Magnesium Lvl (test code = Magnesium 2.1 1.8-2.4 N Lvl) [facility] HospitalLhqmckdWIYURTQPM7357-76-46 07:55:00 Test Item Value Reference Range Interpretation Comments Phosphorus (test code = Phosphorus) 1.4 2.5-4.5 A [facility] HospitalWpdggmiNWNNAZHQU9519-80-41 07:55:00 Test Item Value Reference Range Interpretation Comments CK MB (test code = CK MB) 6.0 0.5-3.6 H [facility] HospitalOzguiohLHMXSOSSN6834-47-98 07:55:00 Test Item Value Reference Range Interpretation Comments Total CK (test code = Total CK) 960 12-191 H [facility] HospitalAumippcDJFAGPAWC3725-97-61 07:55:00 Test Item Value Reference Range Interpretation Comments Troponin-I (test code 1.11 See_Comment A [Auto mated message] The = Troponin-I) system which g enerated this result transmit matteo reference range : <=0.40. The reference r katie was not used to interpr et this result as miesha l/abnormal. [facility] HospitalPeldepgUTFTGADMQB9876-32-72 07:55:00 Test Item Value Reference Range Interpretation Comments Basophils (test code = 0.1 See_Comment N [Aut omated message] The Basophils) system which ge nerated this result tra nsmitted reference range : <=1.0. The reference r katie was not used to int erpret this result as normal/abnormal . [facility]LexpieiXBWZZYKRHK0156-46-39 07:55:00 Test Item Value Reference Range Interpretation Comments Eosinophils (test code = 0.1 See_Comment N [A utomated message] The Eosinophils) system which ge nerated this result tra nsmitted reference range : <=4.0. The reference r katie was not used to int erpret this result as normal/abnormal . [facility] HospitalUikfatjEGRNHXUWAC2251-75-38 07:55:00 Test Item Value Reference Range Interpretation Comments Eosinophils # (test code 0.0 See_Comment N [A utomated message] The = Eosinophils #) system whic h generated this result tra nsmitted reference range : <=0.5. The reference r katie was not used to int erpret this result as normal/abnormal . [facility] HospitalCaoenlkMCXBOVQPNO1187-91-71 07:55:00 Test Item Value Reference Range Interpretation Comments Basophils # (test code 0.0 See_Comment N [Aut omated message] The = Basophils #) system which generated this result tra nsmitted reference range : <=0.2. The reference r katie was not used to int erpret this result as normal/abnormal . [facility] HospitalFjsrvukWXAFNIXIWS6720-78-80 07:55:00 Test Item Value Reference Range Interpretation Comments INR (test code = INR) 1.38 0.85-1.17 H [facility] HospitalKbthhguFAJUNEZMRC2533-60-12 07:55:00 Test Item Value Reference Range Interpretation Comments PT (test code = PT) 16.8 s 12.0-14.7 H [facility] HospitalNzmmzqkBKTBUPNWPQ2515-72-25 07:55:00 Test Item Value Reference Range Interpretation Comments PTT (test code = PTT) 35.5 s 22.9-35.8 N [facility] HospitalWvhsohuPSNYGAFZW0632-51-46 07:55:00 Test Item Value Reference Range Interpretation Comments CK MB Index (test 0.6 See_Comment N [Automate d message] The code = CK MB Index) system w [facility] generated this result transmit matteo reference range : <=2.5. The reference range was not used to interpr et this result as miesha l/abnormal. [facility] HospitalGyuwqwrTOMSSDTCD0438-89-78 07:55:00 Test Item Value Reference Range Interpretation Comments Ca Norm WB (test code = Ca Norm WB) 0.99 1.05-1.25 L [facility] HospitalMpmsgyuRMYYWMZZY2189-64-63 07:55:00 Test Item Value Reference Range Interpretation Comments Ca Ion WB (test code = Ca Ion WB) 0.97 1.05-1.25 L [facility] HospitalQtamwghPCAICMTFI8770-30-16 07:55:00 Test Item Value Reference Range Interpretation Comments Magnesium Lvl (test code = Magnesium 2.1 1.8-2.4 N Lvl) [facility] HospitalVcuhbrtFNUJBOBYZ3859-89-24 07:55:00 Test Item Value Reference Range Interpretation Comments Phosphorus (test code = Phosphorus) 1.4 2.5-4.5 A [facility] HospitalRiybabhSHTAMEOIZ2350-73-98 07:55:00 Test Item Value Reference Range Interpretation Comments CK MB (test code = CK MB) 6.0 0.5-3.6 H [facility] HospitalPjyplonTXNUGCJUJ7090-10-16 07:55:00 Test Item Value Reference Range Interpretation Comments Total CK (test code = Total CK) 960 12-191 H [facility] HospitalAxifmjyBFWFZUVFW7098-33-93 07:55:00 Test Item Value Reference Range Interpretation Comments Troponin-I (test code 1.11 See_Comment A [Auto mated message] The = Troponin-I) system which g enerated this result transmit matteo reference range : <=0.40. The reference r katie was not used to interpr et this result as miesha l/abnormal. [facility] HospitalZunvcjkDBQTIXEUGS6263-72-12 07:55:00 Test Item Value Reference Range Interpretation Comments Basophils (test code = 0.1 See_Comment N [Aut omated message] The Basophils) system which ge nerated this result tra nsmitted reference range : <=1.0. The reference r katie was not used to int erpret this result as normal/abnormal . [facility] HospitalCntxojfOEFEHBNLNK5767-68-68 07:55:00 Test Item Value Reference Range Interpretation Comments Eosinophils (test code = 0.1 See_Comment N [A utomated message] The Eosinophils) system which ge nerated this result tra nsmitted reference range : <=4.0. The reference r katie was not used to int erpret this result as normal/abnormal . [facility] HospitalPmhyxqwMUFTVEQHHU8184-78-47 07:55:00 Test Item Value Reference Range Interpretation Comments Eosinophils # (test code 0.0 See_Comment N [A utomated message] The = Eosinophils #) system whic h generated this result tra nsmitted reference range : <=0.5. The reference r katie was not used to int erpret this result as normal/abnormal . [facility] HospitalKnoelvuIESFZISDGG9892-79-59 07:55:00 Test Item Value Reference Range Interpretation Comments Basophils # (test code 0.0 See_Comment N [Aut omated message] The = Basophils #) system which generated this result tra nsmitted reference range : <=0.2. The reference r katie was not used to int erpret this result as normal/abnormal . [facility] HospitalGwhucgnJGERCHHEHD6371-07-14 07:55:00 Test Item Value Reference Range Interpretation Comments INR (test code = INR) 1.38 0.85-1.17 H [facility] HospitalTbehgjgHMGCKPJZUV4872-36-30 07:55:00 Test Item Value Reference Range Interpretation Comments PT (test code = PT) 16.8 s 12.0-14.7 H [facility] HospitalSuqzakfJYIZFYDFHG7340-84-91 07:55:00 Test Item Value Reference Range Interpretation Comments PTT (test code = PTT) 35.5 s 22.9-35.8 N [facility] HospitalObitsleLPHITXYRB3619-36-10 07:55:00 Test Item Value Reference Range Interpretation Comments CK MB Index (test 0.6 See_Comment N [Automate d message] The code = CK MB Index) system w [facility] generated this result transmit matteo reference range : <=2.5. The reference range was not used to interpr et this result as miesha l/abnormal. [facility] HospitalYvgjcayRUTRBURLA7301-00-78 07:55:00 Test Item Value Reference Range Interpretation Comments Ca Norm WB (test code = Ca Norm WB) 0.99 1.05-1.25 L [facility] HospitalJmclusbJMZEZQDYY1075-39-74 07:55:00 Test Item Value Reference Range Interpretation Comments Ca Ion WB (test code = Ca Ion WB) 0.97 1.05-1.25 L [facility] HospitalIsnjflkVWSQUIQRM4173-37-59 07:55:00 Test Item Value Reference Range Interpretation Comments Magnesium Lvl (test code = Magnesium 2.1 1.8-2.4 N Lvl) [facility] HospitalHwwjgjkAWTWSFDQR3277-42-48 07:55:00 Test Item Value Reference Range Interpretation Comments Phosphorus (test code = Phosphorus) 1.4 2.5-4.5 A [facility] HospitalRbgsqxvBEWFMEPAT6733-60-27 07:55:00 Test Item Value Reference Range Interpretation Comments CK MB (test code = CK MB) 6.0 0.5-3.6 H [facility] HospitalIgmtuapNUVIEOMZQ0881-93-38 07:55:00 Test Item Value Reference Range Interpretation Comments Total CK (test code = Total CK) 960 12-191 H [facility] HospitalXdhulvhRHDFMZEHG9269-46-17 07:55:00 Test Item Value Reference Range Interpretation Comments Troponin-I (test code 1.11 See_Comment A [Auto mated message] The = Troponin-I) system which g enerated this result transmit matteo reference range : <=0.40. The reference r katie was not used to interpr et this result as miesha l/abnormal. [facility] HospitalMszsllpFRDVDVIEUP2769-11-06 07:55:00 Test Item Value Reference Range Interpretation Comments Basophils (test code = 0.1 See_Comment N [Aut omated message] The Basophils) system which ge nerated this result tra nsmitted reference range : <=1.0. The reference r katie was not used to int erpret this result as normal/abnormal . [facility] HospitalFkedhpdXCDFAARIPF5915-29-78 07:55:00 Test Item Value Reference Range Interpretation Comments Eosinophils (test code = 0.1 See_Comment N [A utomated message] The Eosinophils) system which ge nerated this result tra nsmitted reference range : <=4.0. The reference r katie was not used to int erpret this result as normal/abnormal . [facility] HospitalUorclnyJDWKJEBCLB1326-61-96 07:55:00 Test Item Value Reference Range Interpretation Comments Eosinophils # (test code 0.0 See_Comment N [A utomated message] The = Eosinophils #) system whic h generated this result tra nsmitted reference range : <=0.5. The reference r katie was not used to int erpret this result as normal/abnormal . [facility] HospitalCqdkdaoEYGZWXDZWZ4740-46-08 07:55:00 Test Item Value Reference Range Interpretation Comments Basophils # (test code 0.0 See_Comment N [Aut omated message] The = Basophils #) system which generated this result tra nsmitted reference range : <=0.2. The reference r katie was not used to int erpret this result as normal/abnormal . [facility] HospitalVsahdxsHPSEDLGTQR1758-31-03 07:55:00 Test Item Value Reference Range Interpretation Comments INR (test code = INR) 1.38 0.85-1.17 H [facility] HospitalXgimhmeYNLBLBUPJM8078-26-91 07:55:00 Test Item Value Reference Range Interpretation Comments PT (test code = PT) 16.8 s 12.0-14.7 H [facility] HospitalVfuyafzMCVWQNAHWJ6460-82-99 07:55:00 Test Item Value Reference Range Interpretation Comments PTT (test code = PTT) 35.5 s 22.9-35.8 N [facility] HospitalIpeayuvUYGLQIJXE0440-02-72 07:55:00 Test Item Value Reference Range Interpretation Comments CK MB Index (test 0.6 See_Comment N [Automate d message] The code = CK MB Index) system w [facility] generated this result transmit matteo reference range : <=2.5. The reference range was not used to interpr et this result as miesha l/abnormal. [facility] HospitalGygwoxpJFSTRJZIM6842-98-32 07:55:00 Test Item Value Reference Range Interpretation Comments Ca Norm WB (test code = Ca Norm WB) 0.99 1.05-1.25 L [facility] HospitalSnnzrfnUBZTRMLAA1558-27-39 07:55:00 Test Item Value Reference Range Interpretation Comments Ca Ion WB (test code = Ca Ion WB) 0.97 1.05-1.25 L [facility] HospitalWmkpmgrUEYLKVJSS5363-15-97 07:55:00 Test Item Value Reference Range Interpretation Comments Magnesium Lvl (test code = Magnesium 2.1 1.8-2.4 N Lvl) [facility] HospitalWxydbdjHHDEYHJEZ9230-76-22 07:55:00 Test Item Value Reference Range Interpretation Comments Phosphorus (test code = Phosphorus) 1.4 2.5-4.5 A [facility] HospitalYsxeknqVWVJEIMFC1839-40-88 07:55:00 Test Item Value Reference Range Interpretation Comments CK MB (test code = CK MB) 6.0 0.5-3.6 H [facility] HospitalDnuxcslLDWQARHTM0843-67-32 07:55:00 Test Item Value Reference Range Interpretation Comments Total CK (test code = Total CK) 960 12-191 H [facility] HospitalLufvrbrPJXLDQZNY5066-16-20 07:55:00 Test Item Value Reference Range Interpretation Comments Troponin-I (test code 1.11 See_Comment A [Auto mated message] The = Troponin-I) system which g enerated this result transmit matteo reference range : <=0.40. The reference r katie was not used to interpr et this result as miesha l/abnormal. [facility] HospitalYbhzqqmDWHVNTASII4420-32-32 07:55:00 Test Item Value Reference Range Interpretation Comments Basophils (test code = 0.1 See_Comment N [Aut omated message] The Basophils) system which ge nerated this result tra nsmitted reference range : <=1.0. The reference r katie was not used to int erpret this result as normal/abnormal . [facility] HospitalHgzwkjtLDNZRYDDYN3965-49-71 07:55:00 Test Item Value Reference Range Interpretation Comments Eosinophils (test code = 0.1 See_Comment N [A utomated message] The Eosinophils) system which ge nerated this result tra nsmitted reference range : <=4.0. The reference r katie was not used to int erpret this result as normal/abnormal . [facility] HospitalPprfheuYUDXUIUJFD6274-96-11 07:55:00 Test Item Value Reference Range Interpretation Comments Eosinophils # (test code 0.0 See_Comment N [A utomated message] The = Eosinophils #) system whic h generated this result tra nsmitted reference range : <=0.5. The reference r katie was not used to int erpret this result as normal/abnormal . [facility] HospitalPbydxtmTIKLMAMZCP7342-44-26 07:55:00 Test Item Value Reference Range Interpretation Comments Basophils # (test code 0.0 See_Comment N [Aut omated message] The = Basophils #) system which generated this result tra nsmitted reference range : <=0.2. The reference r katie was not used to int erpret this result as normal/abnormal . [facility] HospitalPwhbsseAYSUKMPDKE9563-18-37 07:55:00 Test Item Value Reference Range Interpretation Comments INR (test code = INR) 1.38 0.85-1.17 H [facility] HospitalBaxrswbQUHQLHNSIM7929-19-08 07:55:00 Test Item Value Reference Range Interpretation Comments PT (test code = PT) 16.8 s 12.0-14.7 H [facility] HospitalQnmtzcbTKDNXIOBCA5068-11-38 07:55:00 Test Item Value Reference Range Interpretation Comments PTT (test code = PTT) 35.5 s 22.9-35.8 N [facility] HospitalLgwpezpWILRXVWYQ8620-00-02 07:55:00 Test Item Value Reference Range Interpretation Comments CK MB Index (test 0.6 See_Comment N [Automate d message] The code = CK MB Index) system w [facility] generated this result transmit matteo reference range : <=2.5. The reference range was not used to interpr et this result as miesha l/abnormal. [facility] HospitalMlkjbmzQOFRVKGJY6629-31-71 07:55:00 Test Item Value Reference Range Interpretation Comments Ca Norm WB (test code = Ca Norm WB) 0.99 1.05-1.25 L [facility] HospitalKoaqgypNMIUUZDMW1911-15-74 07:55:00 Test Item Value Reference Range Interpretation Comments Ca Ion WB (test code = Ca Ion WB) 0.97 1.05-1.25 L [facility] HospitalZdcwfolELJWRAFKF2439-11-98 07:55:00 Test Item Value Reference Range Interpretation Comments Magnesium Lvl (test code = Magnesium 2.1 1.8-2.4 N Lvl) [facility] HospitalYhgzazsTKRDEQKJM1828-92-22 07:55:00 Test Item Value Reference Range Interpretation Comments Phosphorus (test code = Phosphorus) 1.4 2.5-4.5 A [facility] HospitalAwyrgiuUKXKYWFCF8069-51-20 07:55:00 Test Item Value Reference Range Interpretation Comments CK MB (test code = CK MB) 6.0 0.5-3.6 H [facility] HospitalCvrqhpwGLPVKNDGW8541-36-62 07:55:00 Test Item Value Reference Range Interpretation Comments Total CK (test code = Total CK) 960 12-191 H [facility] HospitalOhyuqomCOIGHGMSB0998-12-49 07:55:00 Test Item Value Reference Range Interpretation Comments Troponin-I (test code 1.11 See_Comment A [Auto mated message] The = Troponin-I) system which g enerated this result transmit matteo reference range : <=0.40. The reference r katie was not used to interpr et this result as miesha l/abnormal. [facility] HospitalOqmropyWMUXYFZOJV8072-74-25 07:55:00 Test Item Value Reference Range Interpretation Comments Basophils (test code = 0.1 See_Comment N [Aut omated message] The Basophils) system which ge nerated this result tra nsmitted reference range : <=1.0. The reference r katie was not used to int erpret this result as normal/abnormal . [facility] HospitalDeglikkHGOIDWGTFL7488-11-47 07:55:00 Test Item Value Reference Range Interpretation Comments Eosinophils (test code = 0.1 See_Comment N [A utomated message] The Eosinophils) system which ge nerated this result tra nsmitted reference range : <=4.0. The reference r katie was not used to int erpret this result as normal/abnormal . [facility] HospitalOlpgfpkFPIUOXRSEQ1068-26-70 07:55:00 Test Item Value Reference Range Interpretation Comments Eosinophils # (test code 0.0 See_Comment N [A utomated message] The = Eosinophils #) system whic h generated this result tra nsmitted reference range : <=0.5. The reference r katie was not used to int erpret this result as normal/abnormal . [facility] HospitalSfzforkCEEFLZRAAG7449-36-44 07:55:00 Test Item Value Reference Range Interpretation Comments Basophils # (test code 0.0 See_Comment N [Aut omated message] The = Basophils #) system which generated this result tra nsmitted reference range : <=0.2. The reference r katie was not used to int erpret this result as normal/abnormal . [facility] HospitalAnxenzpPFAIIHWUYP2814-17-80 07:55:00 Test Item Value Reference Range Interpretation Comments INR (test code = INR) 1.38 0.85-1.17 H [facility] HospitalIqicgkcYYFZWZHLTU1964-78-63 07:55:00 Test Item Value Reference Range Interpretation Comments PT (test code = PT) 16.8 s 12.0-14.7 H [facility] HospitalSizvrwySQIRDRQCKI5998-97-33 07:55:00 Test Item Value Reference Range Interpretation Comments PTT (test code = PTT) 35.5 s 22.9-35.8 N [facility] HospitalKcgmsjfJTCRRTDXB3834-24-87 07:55:00 Test Item Value Reference Range Interpretation Comments CK MB Index (test 0.6 See_Comment N [Automate d message] The code = CK MB Index) system w [facility] generated this result transmit matteo reference range : <=2.5. The reference range was not used to interpr et this result as miesha l/abnormal. [facility] HospitalErnxmepWCMHYTNIB3529-15-40 07:55:00 Test Item Value Reference Range Interpretation Comments Ca Norm WB (test code = Ca Norm WB) 0.99 1.05-1.25 L [facility] HospitalUabkrdeNWYUOLENZ2284-72-55 07:55:00 Test Item Value Reference Range Interpretation Comments Ca Ion WB (test code = Ca Ion WB) 0.97 1.05-1.25 L [facility] HospitalVgvjzvnJIZHGOYNN4338-33-86 07:55:00 Test Item Value Reference Range Interpretation Comments Magnesium Lvl (test code = Magnesium 2.1 1.8-2.4 N Lvl) [facility] HospitalQmuattlNWMCLVOUX0797-35-04 07:55:00 Test Item Value Reference Range Interpretation Comments Phosphorus (test code = Phosphorus) 1.4 2.5-4.5 A [facility] HospitalIkajzowKENMUEPXY1194-35-78 07:55:00 Test Item Value Reference Range Interpretation Comments CK MB (test code = CK MB) 6.0 0.5-3.6 H [facility] HospitalKnknrtnYQWKUUVHI0041-30-32 07:55:00 Test Item Value Reference Range Interpretation Comments Total CK (test code = Total CK) 960 12-191 H [facility] HospitalUwhgnefCTBLFMJYO0378-83-60 07:55:00 Test Item Value Reference Range Interpretation Comments Troponin-I (test code 1.11 See_Comment A [Auto mated message] The = Troponin-I) system which g enerated this result transmit matteo reference range : <=0.40. The reference r katie was not used to interpr et this result as miesha l/abnormal. [facility] HospitalNlxgamsQWLCDEAIES5410-30-08 07:55:00 Test Item Value Reference Range Interpretation Comments Basophils (test code = 0.1 See_Comment N [Aut omated message] The Basophils) system which ge nerated this result tra nsmitted reference range : <=1.0. The reference r katie was not used to int erpret this result as normal/abnormal . [facility] HospitalXiufnlrILJVXVLSMU9859-53-23 07:55:00 Test Item Value Reference Range Interpretation Comments Eosinophils (test code = 0.1 See_Comment N [A utomated message] The Eosinophils) system which ge nerated this result tra nsmitted reference range : <=4.0. The reference r katie was not used to int erpret this result as normal/abnormal . [facility] HospitalMybjyueXCFTRHPUFK9711-52-70 07:55:00 Test Item Value Reference Range Interpretation Comments Eosinophils # (test code 0.0 See_Comment N [A utomated message] The = Eosinophils #) system wh h generated this result tra nsmitted reference range : <=0.5. The reference r katie was not used to int erpret this result as normal/abnormal . [facility] HospitalRglrzhyNNIXGFRVUC2676-25-62 07:55:00 Test Item Value Reference Range Interpretation Comments Basophils # (test code 0.0 See_Comment N [Aut omated message] The = Basophils #) system which generated this result tra nsmitted reference range : <=0.2. The reference r katie was not used to int erpret this result as normal/abnormal . [facility] HospitalHvnszuuFYCOJLIVWF0975-16-74 07:55:00 Test Item Value Reference Range Interpretation Comments INR (test code = INR) 1.38 0.85-1.17 H [facility] HospitalWbgcbugUDOQWENXLG1909-58-84 07:55:00 Test Item Value Reference Range Interpretation Comments PT (test code = PT) 16.8 s 12.0-14.7 H [facility] HospitalBuybdgtITGESLPSHH3581-82-63 07:55:00 Test Item Value Reference Range Interpretation Comments PTT (test code = PTT) 35.5 s 22.9-35.8 N [facility] RECIHXV6982-58-39 05:54:00 Test Item Value Reference Range Interpretation Comments RBC product (test code Product available N = RBC product) (02/24/2013 00:54:00) [facility] BKLXJQL7906-56-16 05:54:00 Test Item Value Reference Range Interpretation Comments RBC product (test code Product available N = RBC product) (02/24/2013 00:54:00) [facility] HDFPLZM7244-33-99 05:54:00 Test Item Value Reference Range Interpretation Comments RBC product (test code Product available N = RBC product) (02/24/2013 00:54:00) [facility] WZMJWRP4387-70-17 05:54:00 Test Item Value Reference Range Interpretation Comments RBC product (test code Product available N = RBC product) (02/24/2013 00:54:00) [facility] MUFFLQE3323-08-76 05:54:00 Test Item Value Reference Range Interpretation Comments RBC product (test code Product available N = RBC product) (02/24/2013 00:54:00) [facility] GUFGRVM9730-51-34 05:54:00 Test Item Value Reference Range Interpretation Comments RBC product (test code Product available N = RBC product) (02/24/2013 00:54:00) [facility] HospitalAasbzdaVDPJVPOCGG4930-99-90 01:45:00 Test Item Value Reference Range Interpretation Comments PTT (test code = PTT) 44.0 s 22.9-35.8 H [facility] HospitalBibuzdpWXDVBKHAGD8780-92-48 01:45:00 Test Item Value Reference Range Interpretation Comments INR (test code = INR) 1.34 0.85-1.17 H [facility] HospitalAnnxcdhSWELKFDYZQ1600-00-55 01:45:00 Test Item Value Reference Range Interpretation Comments PT (test code = PT) 16.4 s 12.0-14.7 H [facility] HospitalMywunxkMAHCJLSSMK4931-98-35 01:45:00 Test Item Value Reference Range Interpretation Comments PTT (test code = PTT) 44.0 s 22.9-35.8 H [facility] HospitalQdbqcdyBRFGKQJZPT5012-13-16 01:45:00 Test Item Value Reference Range Interpretation Comments INR (test code = INR) 1.34 0.85-1.17 H [facility] HospitalVdatmqwVQVEQNJEXA5427-87-42 01:45:00 Test Item Value Reference Range Interpretation Comments PT (test code = PT) 16.4 s 12.0-14.7 H [facility] HospitalAloediiUDAQNSARNW9631-84-87 01:45:00 Test Item Value Reference Range Interpretation Comments PTT (test code = PTT) 44.0 s 22.9-35.8 H [facility] HospitalPcfzxigUAYNTTUHPW2667-36-73 01:45:00 Test Item Value Reference Range Interpretation Comments INR (test code = INR) 1.34 0.85-1.17 H [facility] HospitalUgmxhksUMFVRODVQC0960-26-22 01:45:00 Test Item Value Reference Range Interpretation Comments PT (test code = PT) 16.4 s 12.0-14.7 H [facility] HospitalLsimfnbGSYZVXHQEG3798-13-61 01:45:00 Test Item Value Reference Range Interpretation Comments PTT (test code = PTT) 44.0 s 22.9-35.8 H [facility] HospitalBrvlazjQUFGZUNMLF4889-81-40 01:45:00 Test Item Value Reference Range Interpretation Comments INR (test code = INR) 1.34 0.85-1.17 H [facility] HospitalNwskebeUZICLAEYNN9287-53-34 01:45:00 Test Item Value Reference Range Interpretation Comments PT (test code = PT) 16.4 s 12.0-14.7 H [facility] HospitalTyxanqeVXHFFPQKXL8832-51-36 01:45:00 Test Item Value Reference Range Interpretation Comments PTT (test code = PTT) 44.0 s 22.9-35.8 H [facility] HospitalRapexuvAAOJGVJKWF8127-91-52 01:45:00 Test Item Value Reference Range Interpretation Comments INR (test code = INR) 1.34 0.85-1.17 H [facility] HospitalYqyjdvjQCGMYSAJSV0258-01-48 01:45:00 Test Item Value Reference Range Interpretation Comments PT (test code = PT) 16.4 s 12.0-14.7 H [facility] HospitalSpeedtgXIDUMQVOSQ1028-47-42 01:45:00 Test Item Value Reference Range Interpretation Comments PTT (test code = PTT) 44.0 s 22.9-35.8 [facility]JmfpirwSSVNLZLOCD6822-37-95 01:45:00 Test Item Value Reference Range Interpretation Comments INR (test code = INR) 1.34 0.85-1.17 [facility]NpuzxexHFVNEWKHOF1594-10-27 01:45:00 Test Item Value Reference Range Interpretation Comments PT (test code = PT) 16.4 s 12.0-14.7 [facility]LfgutlhQHUPYADFY3372-09-91 18:10:00 Test Item Value Reference Range Interpretation Comments Vanco Tr (test code = Vanco Tr) 11.7 [facility] HospitalNcfeakeKZRVLZNDQ8696-64-93 18:10:00 Test Item Value Reference Range Interpretation Comments Vanco Tr TND (test code = Vanco Tr TND) [facility]2013-08-30 18:10:00 Test Item Value Reference Range Interpretation Comments Vanco Tr (test code = Vanco Tr) 11.7 [facility] HospitalRxlilhfWSNYNZGTG7840-18-57 18:10:00 Test Item Value Reference Range Interpretation Comments Vanco Tr TND (test code = Vanco Tr TND) [facility]2013-08-30 18:10:00 Test Item Value Reference Range Interpretation Comments Vanco Tr (test code = Vanco Tr) 11.7 [facility] HospitalVtflatxETKOBJQRQ0376-70-58 18:10:00 Test Item Value Reference Range Interpretation Comments Vanco Tr TND (test code = Vanco Tr TND) [facility]2013-08-30 18:10:00 Test Item Value Reference Range Interpretation Comments Vanco Tr (test code = Vanco Tr) 11.7 [facility] HospitalJtzupnkGIXCKCITG4092-57-63 18:10:00 Test Item Value Reference Range Interpretation Comments Vanco Tr TND (test code = Vanco Tr TND) [facility]2013-08-30 18:10:00 Test Item Value Reference Range Interpretation Comments Vanco Tr (test code = Vanco Tr) 11.7 [facility] HospitalMdophovTCALXBNNP9046-59-69 18:10:00 Test Item Value Reference Range Interpretation Comments Vanco Tr TND (test code = Vanco Tr TND) [facility]UvprhkbQPGUEHSQW7661-68-03 18:10:00 Test Item Value Reference Range Interpretation Comments Vanco Tr (test code = Vanco Tr) 11.7 [facility] HospitalTcryvvuJZSTDWHNV3400-99-78 18:10:00 Test Item Value Reference Range Interpretation Comments Vanco Tr TND (test code = Vanco Tr TND) [facility] IHZQNVQ6492-99-18 18:07:00 Test Item Value Reference Range Interpretation Comments RBC product (test code Product available N = RBC product) (02/23/2013 13:07:00) [facility] HOQBVGJ8543-18-81 18:07:00 Test Item Value Reference Range Interpretation Comments RBC product (test code Product available N = RBC product) (02/23/2013 13:07:00) [facility] [id number] 18:07:00 Test Item Value Reference Range Interpretation Comments RBC product (test code Product available N = RBC product) (02/23/2013 13:07:00) [facility] YABIHEW6712-39-02 18:07:00 Test Item Value Reference Range Interpretation Comments RBC product (test code Product available N = RBC product) (02/23/2013 13:07:00) [facility] [id number] 18:07:00 Test Item Value Reference Range Interpretation Comments RBC product (test code Product available N = RBC product) (02/23/2013 13:07:00) [facility] QEFHGTT6612-02-23 18:07:00 Test Item Value Reference Range Interpretation Comments RBC product (test code Product available N = RBC product) (02/23/2013 13:07:00) [facility] HospitalCxxxuhcDSZQGCUVS6884-36-89 10:45:19 Test Item Value Reference Range Interpretation Comments CK MB (test code = CK MB) 12.5 0.5-3.6 H [facility] HospitalHextvgrKBDJUYGQY2036-80-11 10:45:19 Test Item Value Reference Range Interpretation Comments CK MB (test code = CK MB) 12.5 0.5-3.6 H [facility] HospitalGiohpvlURTVENXSQ0212-16-14 10:45:19 Test Item Value Reference Range Interpretation Comments CK MB (test code = CK MB) 12.5 0.5-3.6 H [facility] HospitalWovpwraITYROBEIG4395-26-54 10:45:19 Test Item Value Reference Range Interpretation Comments CK MB (test code = CK MB) 12.5 0.5-3.6 H [facility] HospitalGycvvntZLTGEMMES7081-78-43 10:45:19 Test Item Value Reference Range Interpretation Comments CK MB (test code = CK MB) 12.5 0.5-3.6 H [facility] HospitalVqaaqcwZUCDQERHH0128-19-44 10:45:19 Test Item Value Reference Range Interpretation Comments CK MB (test code = CK MB) 12.5 0.5-3.6 H [facility] HospitalQxammaxIBAWZULFT9622-60-32 10:45:00 Test Item Value Reference Range Interpretation Comments Troponin-I (test code 1.34 See_Comment A [Auto mated message] The = Troponin-I) system which g enerated this result transmit matteo reference range : <=0.40. The reference r katie was not used to interpr et this result as miesha l/abnormal. [facility] HospitalOhccaifHVRSMUGEB2025-87-06 10:45:00 Test Item Value Reference Range Interpretation Comments Total CK (test code = Total CK) 1727 12-191 H [facility] HospitalLlxaqwfXMFDRSUZQ3643-96-82 10:45:00 Test Item Value Reference Range Interpretation Comments CK MB Index (test 0.7 See_Comment N [Automate d message] The code = CK MB Index) system w [facility] generated this result transmit matteo reference range : <=2.5. The reference range was not used to interpr et this result as miesha l/abnormal. [facility] HospitalJxibzcxNKZOMGTSC4514-67-93 10:45:00 Test Item Value Reference Range Interpretation Comments Troponin-I (test code 1.34 See_Comment A [Auto mated message] The = Troponin-I) system which g enerated this result transmit matteo reference range : <=0.40. The reference r katie was not used to interpr et this result as miesha l/abnormal. [facility] HospitalHoyivzyGJIIQEXDU8170-63-37 10:45:00 Test Item Value Reference Range Interpretation Comments Total CK (test code = Total CK) 1726 12-191 H [facility] HospitalQlvdbznLWMEOOSBQ1450-26-64 10:45:00 Test Item Value Reference Range Interpretation Comments CK MB Index (test 0.7 See_Comment N [Automate d message] The code = CK MB Index) system w [facility] generated this result transmit matteo reference range : <=2.5. The reference range was not used to interpr et this result as miesha l/abnormal. [facility] HospitalPpjfitmGAJYERZZO0195-97-40 10:45:00 Test Item Value Reference Range Interpretation Comments Troponin-I (test code 1.34 See_Comment A [Auto mated message] The = Troponin-I) system which g enerated this result transmit matteo reference range : <=0.40. The reference r katie was not used to interpr et this result as miesha l/abnormal. [facility] HospitalTbihipwCHNHDSTTA1774-64-13 10:45:00 Test Item Value Reference Range Interpretation Comments Total CK (test code = Total CK) 1726 12-191 H [facility] HospitalLoryyaaJOYEPISAE2585-99-24 10:45:00 Test Item Value Reference Range Interpretation Comments CK MB Index (test 0.7 See_Comment N [Automate d message] The code = CK MB Index) system w [employer] generated this result transmit matteo reference range : <=2.5. The reference range was not used to interpr et this result as miesha l/abnormal. [facility] HospitalYdtzuipCUCHIWYLD1545-90-42 10:45:00 Test Item Value Reference Range Interpretation Comments Troponin-I (test code 1.34 See_Comment A [Auto mated message] The = Troponin-I) system which g enerated this result transmit matteo reference range : <=0.40. The reference r katie was not used to interpr et this result as miesha l/abnormal. [place] [id number] 10:45:00 Test Item Value Reference Range Interpretation Comments Total CK (test code = Total CK) 1726 H [facility] HospitalYreldyrATSUPXUHP1470-98-79 10:45:00 Test Item Value Reference Range Interpretation Comments CK MB Index (test 0.7 See_Comment N [Automate d message] The code = CK MB Index) system w [employer] generated this result transmit matteo reference range : <=2.5. The reference range was not used to interpr et this result as miesha l/abnormal. [facility] HospitalZxnrhlvFNABTRTGS7498-70-84 10:45:00 Test Item Value Reference Range Interpretation Comments Troponin-I (test code 1.34 See_Comment A [Auto mated message] The = Troponin-I) system which g enerated this result transmit matteo reference range : <=0.40. The reference r katie was not used to interpr et this result as miesha l/abnormal. [facility] HospitalYbarnhoTCNBDMHFX8971-66-38 10:45:00 Test Item Value Reference Range Interpretation Comments Total CK (test code = Total CK) 1726 H [facility] HospitalBzjclxtZXOPHDDLP3520-45-16 10:45:00 Test Item Value Reference Range Interpretation Comments CK MB Index (test 0.7 See_Comment N [Automate d message] The code = CK MB Index) system w [employer] generated this result transmit matteo reference range : <=2.5. The reference range was not used to interpr et this result as miesha l/abnormal. [facility] HospitalUjvzphvPFYYDQVCH4072-51-90 10:45:00 Test Item Value Reference Range Interpretation Comments Troponin-I (test code 1.34 See_Comment A [Auto mated message] The = Troponin-I) system which g enerated this result transmit matteo reference range : <=0.40. The reference r katie was not used to interpr et this result as miesha l/abnormal. [facility] HospitalGzgkypiTFLNFBJRK4598-94-54 10:45:00 Test Item Value Reference Range Interpretation Comments Total CK (test code = Total CK) 1726191 H [facility] HospitalSbnshiaLLBVRVSVH3348-36-00 10:45:00 Test Item Value Reference Range Interpretation Comments CK MB Index (test 0.7 See_Comment N [Automate d message] The code = CK MB Index) system w [facility] generated this result transmit matteo reference range : <=2.5. The reference range was not used to interpr et this result as miesha l/abnormal. [facility] HospitalDlasoqeTSZXIUVKV6597-65-89 09:00:00 Test Item Value Reference Range Interpretation Comments TSH (test code = TSH) 0.581 0.360-3.740 N [facility] HospitalCsjavtpXAHSPKRRV2410-29-76 09:00:00 Test Item Value Reference Range Interpretation Comments Hgb A1C (test code = Hgb A1C) 5.0 N [facility] HospitalZoptpziITKURSNWAY0877-17-39 09:00:00 Test Item Value Reference Range Interpretation Comments Basophils # (test code 0.0 See_Comment N [Aut omated message] The = Basophils #) system which generated this result tra nsmitted reference range : <=0.2. The reference r katie was not used to int erpret this result as normal/abnormal . [facility] HospitalTsqbxhiADRNYEITBM8720-67-71 09:00:00 Test Item Value Reference Range Interpretation Comments Eosinophils # (test code 0.0 See_Comment N [A utomated message] The = Eosinophils #) system [facility] [employer] generated this result tra nsmitted reference range : <=0.5. The reference r katie was not used to int erpret this result as normal/abnormal . [facility] HospitalXtmmzktEYEOKNEQG2960-95-01 09:00:00 Test Item Value Reference Range Interpretation Comments TSH (test code = TSH) 0.581 0.360-3.740 N [facility] HospitalKyicglfFIAEIHTKU5077-34-90 09:00:00 Test Item Value Reference Range Interpretation Comments Hgb A1C (test code = Hgb A1C) 5.0 N [facility] HospitalPpljzdaTWXBKWLFUL7177-62-92 09:00:00 Test Item Value Reference Range Interpretation Comments Basophils # (test code 0.0 See_Comment N [Aut omated message] The = Basophils #) system which generated this result tra nsmitted reference range : <=0.2. The reference r katie was not used to int erpret this result as normal/abnormal . [facility] HospitalMknsmjmCJGVHMSFCX1598-76-29 09:00:00 Test Item Value Reference Range Interpretation Comments Eosinophils # (test code 0.0 See_Comment N [A utomated message] The = Eosinophils #) system [facility] [employer] generated this result tra nsmitted reference range : <=0.5. The reference r katie was not used to int erpret this result as normal/abnormal . [facility] HospitalNdqeqnuJSDHVOTFV7802-51-65 09:00:00 Test Item Value Reference Range Interpretation Comments TSH (test code = TSH) 0.581 0.360-3.740 N [facility] HospitalNsblgjsBFNCAZTFC9892-14-19 09:00:00 Test Item Value Reference Range Interpretation Comments Hgb A1C (test code = Hgb A1C) 5.0 N [facility] HospitalRtfummsJBPNCSWIYS6338-57-15 09:00:00 Test Item Value Reference Range Interpretation Comments Basophils # (test code 0.0 See_Comment N [Aut omated message] The = Basophils #) system which generated this result tra nsmitted reference range : <=0.2. The reference r katie was not used to int erpret this result as normal/abnormal . [facility] HospitalFgzqhtiIJZLKMVQQI0657-19-05 09:00:00 Test Item Value Reference Range Interpretation Comments Eosinophils # (test code 0.0 See_Comment N [A utomated message] The = Eosinophils #) system [facility] [employer] generated this result tra nsmitted reference range : <=0.5. The reference r katie was not used to int erpret this result as normal/abnormal . [facility] HospitalPsixsxrDDHMPGBTW6245-54-92 09:00:00 Test Item Value Reference Range Interpretation Comments TSH (test code = TSH) 0.581 0.360-3.740 N [facility] HospitalDguzscoBKDVJTWRD2782-58-81 09:00:00 Test Item Value Reference Range Interpretation Comments Hgb A1C (test code = Hgb A1C) 5.0 N [facility] HospitalMgqmbaoQQQRYEPUGR1343-36-94 09:00:00 Test Item Value Reference Range Interpretation Comments Basophils # (test code 0.0 See_Comment N [Aut omated message] The = Basophils #) system which generated this result tra nsmitted reference range : <=0.2. The reference r katie was not used to int erpret this result as normal/abnormal . [facility] HospitalEtafsyjMHHVNHGGRV3121-75-35 09:00:00 Test Item Value Reference Range Interpretation Comments Eosinophils # (test code 0.0 See_Comment N [A utomated message] The = Eosinophils #) system [facility] [employer] generated this result tra nsmitted reference range : <=0.5. The reference r katie was not used to int erpret this result as normal/abnormal . [facility] HospitalVidurxiMRKWJYAQI0727-17-14 09:00:00 Test Item Value Reference Range Interpretation Comments TSH (test code = TSH) 0.581 0.360-3.740 N [facility] HospitalLuuhjizQXXMQYVUO4723-86-42 09:00:00 Test Item Value Reference Range Interpretation Comments Hgb A1C (test code = Hgb A1C) 5.0 N [facility] HospitalHvmbshrBNYMZLPJCM7440-80-74 09:00:00 Test Item Value Reference Range Interpretation Comments Basophils # (test code 0.0 See_Comment N [Aut omated message] The = Basophils #) system which generated this result tra nsmitted reference range : <=0.2. The reference r katie was not used to int erpret this result as normal/abnormal . [facility] HospitalIstkbtlTSKRJEIEYR1492-62-60 09:00:00 Test Item Value Reference Range Interpretation Comments Eosinophils # (test code 0.0 See_Comment N [A utomated message] The = Eosinophils #) system [employer] generated this result tra nsmitted reference range : <=0.5. The reference r katie was not used to int erpret this result as normal/abnormal . [facility] HospitalXoyckgoOAHPGTXOB4708-13-29 09:00:00 Test Item Value Reference Range Interpretation Comments TSH (test code = TSH) 0.581 0.360-3.740 N [facility] HospitalPdhwkgqVPKGOSXPJ1050-41-88 09:00:00 Test Item Value Reference Range Interpretation Comments Hgb A1C (test code = Hgb A1C) 5.0 N [facility] HospitalSxtxgwoNBCENRXYQG5179-54-33 09:00:00 Test Item Value Reference Range Interpretation Comments Basophils # (test code 0.0 See_Comment N [Aut omated message] The = Basophils #) system which generated this result tra nsmitted reference range : <=0.2. The reference r katie was not used to int erpret this result as normal/abnormal . [facility] HospitalEaggsdbQADDHNUKEH2537-47-75 09:00:00 Test Item Value Reference Range Interpretation Comments Eosinophils # (test code 0.0 See_Comment N [A utomated message] The = Eosinophils #) system [employer] generated this result tra nsmitted reference range : <=0.5. The reference r katie was not used to int erpret this result as normal/abnormal . [facility] HospitalOkydfywMSOUDSSFZ0452-29-26 04:00:00 Test Item Value Reference Range Interpretation Comments Troponin-I (test code 2.07 See_Comment A [Auto mated message] The = Troponin-I) system which g enerated this result transmit matteo reference range : <=0.40. The reference r katie was not used to interpr et this result as miesha l/abnormal. [facility] HospitalTiktojyDKMQLBLNG0313-30-07 04:00:00 Test Item Value Reference Range Interpretation Comments Total CK (test code = Total CK) 2251 H [facility] HospitalJlerntzLTACWUQRR6549-78-07 04:00:00 Test Item Value Reference Range Interpretation Comments Total CK (test code = Total CK) 2251 H [facility] HospitalQujktlmPJGHCGNBX1087-94-97 04:00:00 Test Item Value Reference Range Interpretation Comments CK MB Index (test 0.9 See_Comment N [Automate d message] The code = CK MB Index) system w [facility] generated this result transmit matteo reference range : <=2.5. The reference range was not used to interpr et this result as miesha l/abnormal. [facility] HospitalJyvjojrBQEJXMSMH7983-81-41 04:00:00 Test Item Value Reference Range Interpretation Comments CK MB (test code = CK MB) 20.3 0.5-3.6 H [facility] HospitalZypfahyERVNLEJGD9697-62-94 04:00:00 Test Item Value Reference Range Interpretation Comments Troponin-I (test code 2.07 See_Comment A [Auto mated message] The = Troponin-I) system which g enerated this result transmit matteo reference range : <=0.40. The reference r katie was not used to interpr et this result as miesha l/abnormal. [facility] HospitalJeuooolJYYYMBNEJ1052-99-50 04:00:00 Test Item Value Reference Range Interpretation Comments Total CK (test code = Total CK) 2251 H [facility] HospitalTqqunynTQIAVFMZL0541-18-27 04:00:00 Test Item Value Reference Range Interpretation Comments Total CK (test code = Total CK) 2251 H [facility] HospitalUuswbecVIAXQQQEA9072-80-17 04:00:00 Test Item Value Reference Range Interpretation Comments CK MB Index (test 0.9 See_Comment N [Automate d message] The code = CK MB Index) system w [employer] generated this result transmit matteo reference range : <=2.5. The reference range was not used to interpr et this result as miesha l/abnormal. [facility]KovihgjCLPOUGNAJ4086-46-30 04:00:00 Test Item Value Reference Range Interpretation Comments CK MB (test code = CK MB) 20.3 0.5-3.6 H [facility] HospitalUubrujxIZUNESCYY4953-60-18 04:00:00 Test Item Value Reference Range Interpretation Comments Troponin-I (test code 2.07 See_Comment A [Auto mated message] The = Troponin-I) system which g enerated this result transmit matteo reference range : <=0.40. The reference r katie was not used to interpr et this result as miesha l/abnormal. [facility] HospitalCubveajSUPWGHCUO9957-63-55 04:00:00 Test Item Value Reference Range Interpretation Comments Total CK (test code = Total CK) 2252 12-191 H [facility] HospitalEyncctzSOLUZQFRR0841-02-09 04:00:00 Test Item Value Reference Range Interpretation Comments Total CK (test code = Total CK) 2252 12-191 H [facility] HospitalFcotgpqRSNCMIQVB2793-99-77 04:00:00 Test Item Value Reference Range Interpretation Comments CK MB Index (test 0.9 See_Comment N [Automate d message] The code = CK MB Index) system w [employer] generated this result transmit matteo reference range : <=2.5. The reference range was not used to interpr et this result as miesha l/abnormal. [facility] HospitalBxhluxoZKQYELFUJ1968-13-95 04:00:00 Test Item Value Reference Range Interpretation Comments CK MB (test code = CK MB) 20.3 0.5-3.6 H [facility] HospitalPnpvsugZOWGHABJR6173-01-80 04:00:00 Test Item Value Reference Range Interpretation Comments Troponin-I (test code 2.07 See_Comment A [Auto mated message] The = Troponin-I) system which g enerated this result transmit matteo reference range : <=0.40. The reference r katie was not used to interpr et this result as miesha l/abnormal. [facility] HospitalSpkeatmMOEIMCBRA9212-37-25 04:00:00 Test Item Value Reference Range Interpretation Comments Total CK (test code = Total CK) 2251 H [facility] HospitalKxtakubHQMKIKHIJ8890-95-86 04:00:00 Test Item Value Reference Range Interpretation Comments Total CK (test code = Total CK) 2251 H [facility] HospitalSvrvawvYCZARQVUX5681-03-05 04:00:00 Test Item Value Reference Range Interpretation Comments CK MB Index (test 0.9 See_Comment N [Automate d message] The code = CK MB Index) system w [facility] generated this result transmit matteo reference range : <=2.5. The reference range was not used to interpr et this result as miesha l/abnormal. [facility] HospitalIehrfdsVETZYVCSU5494-65-43 04:00:00 Test Item Value Reference Range Interpretation Comments CK MB (test code = CK MB) 20.3 0.5-3.6 H [facility] HospitalLkhzmppBPCMVWCOZ6279-85-19 04:00:00 Test Item Value Reference Range Interpretation Comments Troponin-I (test code 2.07 See_Comment A [Auto mated message] The = Troponin-I) system which g enerated this result transmit matteo reference range : <=0.40. The reference r katie was not used to interpr et this result as miesha l/abnormal. [facility] HospitalVavhhouZWCYKFMYR3456-18-36 04:00:00 Test Item Value Reference Range Interpretation Comments Total CK (test code = Total CK) 2251 H [facility] HospitalPngsvkcVZLDETXUK3475-15-19 04:00:00 Test Item Value Reference Range Interpretation Comments Total CK (test code = Total CK) 2251 H [facility] HospitalWvrfoxeWQDLHADKL7122-96-26 04:00:00 Test Item Value Reference Range Interpretation Comments CK MB Index (test 0.9 See_Comment N [Automate d message] The code = CK MB Index) system w [facility] generated this result transmit matteo reference range : <=2.5. The reference range was not used to interpr et this result as miesha l/abnormal. [facility] HospitalCzruswuFMEQWNXRH7106-03-99 04:00:00 Test Item Value Reference Range Interpretation Comments CK MB (test code = CK MB) 20.3 0.5-3.6 H [facility] HospitalSwxmpkbTUVXPCYEP7536-88-05 04:00:00 Test Item Value Reference Range Interpretation Comments Troponin-I (test code 2.07 See_Comment A [Auto mated message] The = Troponin-I) system which g enerated this result transmit matteo reference range : <=0.40. The reference r katie was not used to interpr et this result as miesha l/abnormal. [facility] HospitalZtuletkWFHSHEXMR9909-55-32 04:00:00 Test Item Value Reference Range Interpretation Comments Total CK (test code = Total CK) 2 12-191 H [facility] HospitalUxionkoNBCDYLRUY1573-79-00 04:00:00 Test Item Value Reference Range Interpretation Comments Total CK (test code = Total CK) 2 12-191 H [facility] HospitalHznibmrXLXSDHQUO4520-85-14 04:00:00 Test Item Value Reference Range Interpretation Comments CK MB Index (test 0.9 See_Comment N [Automate d message] The code = CK MB Index) system w [facility] generated this result transmit matteo reference range : <=2.5. The reference range was not used to interpr et this result as miesha l/abnormal. [facility] HospitalAmxjsujBEUTJMRGF5744-94-92 04:00:00 Test Item Value Reference Range Interpretation Comments CK MB (test code = CK MB) 20.3 0.5-3.[address] [facility]UqtuabxAswvspfmsgau6039-24-43 18:55:35 Test Item Value Reference Range Interpretation Comments Culture: Respiratory w/Gram Stain (test code = Culture: Respiratory w/Gram Stain) [facility]VxuhzrnRxiwhrifcmve2022-14-58 18:55:35 Test Item Value Reference Range Interpretation Comments Culture: Respiratory w/Gram Stain (test code = Culture: Respiratory w/Gram Stain) [facility]KhecvxnIesfnytutpai0014-86-70 18:55:35 Test Item Value Reference Range Interpretation Comments Culture: Respiratory w/Gram Stain (test code = Culture: Respiratory w/Gram Stain) [facility] CenterEwpkbfcPvrtfrsglhxk3046-17-86 18:55:35 Test Item Value Reference Range Interpretation Comments Culture: Respiratory w/Gram Stain (test code = Culture: Respiratory w/Gram Stain) [facility] CenterVhyxlqcWbhquaudpgjc3649-31-65 18:55:35 Test Item Value Reference Range Interpretation Comments Culture: Respiratory w/Gram Stain (test code = Culture: Respiratory w/Gram Stain) [facility] CenterFrerzvyDpbcypmxirhq1195-11-68 18:55:35 Test Item Value Reference Range Interpretation Comments Culture: Respiratory w/Gram Stain (test code = Culture: Respiratory w/Gram Stain) [facility] CenterHvusxupThjchdsjuhhu8348-48-90 18:15:35 Test Item Value Reference Range Interpretation Comments Culture: Blood (test code = Culture: Blood) [facility] CenterQefnbdpEecxwxmlczjc7952-18-87 18:15:35 Test Item Value Reference Range Interpretation Comments Culture: Blood (test code = Culture: Blood) [facility] CenterIhhbupfGtgtmaoxewrd5796-43-95 18:15:35 Test Item Value Reference Range Interpretation Comments Culture: Blood (test code = Culture: Blood) [facility] CenterUvwobpzHtasgosdwcjw0652-91-11 18:15:35 Test Item Value Reference Range Interpretation Comments Culture: Blood (test code = Culture: Blood) [facility] CenterBsatfpaTnczslyflkym6548-72-41 18:15:35 Test Item Value Reference Range Interpretation Comments Culture: Blood (test code = Culture: Blood) [facility] CenterSarqjkpMfsctwqrxzxj9688-37-12 18:15:35 Test Item Value Reference Range Interpretation Comments Culture: Blood (test code = Culture: Blood) [facility] CenterAssoaqpZwlmrsuvozoz3623-87-28 18:05:30 Test Item Value Reference Range Interpretation Comments Culture: Blood (test code = Culture: Blood) [facility] CenterJphbhoqKnqoifsvvuih1302-48-31 18:05:30 Test Item Value Reference Range Interpretation Comments Culture: Blood (test code = Culture: Blood) [facility] CenterCnjuiyaPjmtpekdinor7101-86-74 18:05:30 Test Item Value Reference Range Interpretation Comments Culture: Blood (test code = Culture: Blood) [facility] CenterFebmnbbYtequgwzyiwg0602-28-09 18:05:30 Test Item Value Reference Range Interpretation Comments Culture: Blood (test code = Culture: Blood) [facility] CenterYbegzrjAmcwiswbspye4798-93-73 18:05:30 Test Item Value Reference Range Interpretation Comments Culture: Blood (test code = Culture: Blood) [facility] CenterTzunqxtAplgwrzrjdle3780-87-41 18:05:30 Test Item Value Reference Range Interpretation Comments Culture: Blood (test code = Culture: Blood) [facility] CenterWjrqtyfEulcganhfipc8915-81-63 17:25:47 Test Item Value Reference Range Interpretation Comments Culture: Urine (test code = Culture: Urine) [facility] CenterPdoenxsNxbnijkdmani7779-98-85 17:25:47 Test Item Value Reference Range Interpretation Comments Culture: Urine (test code = Culture: Urine) [facility] CenterRhfmsvcRytpxnfzqxsw4951-73-00 17:25:47 Test Item Value Reference Range Interpretation Comments Culture: Urine (test code = Culture: Urine) [facility] CenterUahsulzOruqcouedefc2836-58-63 17:25:47 Test Item Value Reference Range Interpretation Comments Culture: Urine (test code = Culture: Urine) [facility] CenterTssndpzFilpeoraqkzt5791-37-68 17:25:47 Test Item Value Reference Range Interpretation Comments Culture: Urine (test code = Culture: Urine) [facility] CenterNeyjjvjOstqmgcydcpq4842-20-33 17:25:47 Test Item Value Reference Range Interpretation Comments Culture: Urine (test code = Culture: Urine) [facility]YtneuvjGLTYHRWDA7853-00-12 07:00:00 Test Item Value Reference Range Interpretation Comments Magnesium Lvl (test code = Magnesium 1.6 1.8-2.4 L Lvl) [facility] HospitalCclqnngFHLWLQJCX7194-68-27 07:00:00 Test Item Value Reference Range Interpretation Comments ALT (test code = ALT) 23 See_Comment N [Auto mated message] The system which ge nerated this result transmit matteo reference range : <=65. The reference range was not used to interpr et this result as miesha l/abnormal. [facility] HospitalGqjnvzgEBTIGBVLP8534-81-12 07:00:00 Test Item Value Reference Range Interpretation Comments Alk Phos (test code = Alk Phos) 45 39-136 N [facility] HospitalGcdqeyfMMCOYSNAT5321-66-43 07:00:00 Test Item Value Reference Range Interpretation Comments Albumin Lvl (test code = Albumin Lvl) 3.4 3.5-5.0 L [facility] HospitalIplxmzjXDEYVHPTX3795-48-48 07:00:00 Test Item Value Reference Range Interpretation Comments B/C Ratio (test code = B/C Ratio) 10 6-25 N [facility] HospitalUisqqkbHRKZNUEQY7283-22-55 07:00:00 Test Item Value Reference Range Interpretation Comments Total Protein (test code = Total 5.9 6.4-8.4 L Protein) [facility] HospitalIislzldTXTESMIET2336-35-44 07:00:00 Test Item Value Reference Range Interpretation Comments Globulin (test code = Globulin) 2.5 2.0-4.0 N [facility] HospitalOqxmsncXAFRTHGTP3677-49-14 07:00:00 Test Item Value Reference Range Interpretation Comments Bili Total (test code = Bili Total) 0.7 0.2-1.3 N [facility]LygzhgvVSGPZSMDB8656-54-11 07:00:00 Test Item Value Reference Range Interpretation Comments A/G Ratio (test code = A/G Ratio) 1.4 0.7-1.6 N [facility] HospitalHreipgtFMJPIWUNK1216-21-94 07:00:00 Test Item Value Reference Range Interpretation Comments AST (test code = AST) 62 See_Comment H [Auto mated message] The system which ge nerated this result transmit matteo reference range : <=37. The reference range was not used to interpr et this result as miesha l/abnormal. [facility]DqhakltOOCXVQNTXH6008-45-95 07:00:00 Test Item Value Reference Range Interpretation Comments Polychrom (test code = Slight (02/22/2013 N Polychrom) 02:00:00) [facility] HospitalBbpkcpuDADDPWPKPU6317-29-48 07:00:00 Test Item Value Reference Range Interpretation Comments Plt Morph (test code = Normal (02/22/2013 N Plt Morph) 02:00:00) [facility] HospitalUryjwmqNLNVTADZS0848-73-11 07:00:00 Test Item Value Reference Range Interpretation Comments Magnesium Lvl (test code = Magnesium 1.6 1.8-2.4 L Lvl) [facility] HospitalGawyrsyOLPEWGDEX6582-54-36 07:00:00 Test Item Value Reference Range Interpretation Comments ALT (test code = ALT) 23 See_Comment N [Auto mated message] The system which ge nerated this result transmit matteo reference range : <=65. The reference range was not used to interpr et this result as miesha l/abnormal. [facility] HospitalAkxdwwwAZVCPEMXY9791-65-01 07:00:00 Test Item Value Reference Range Interpretation Comments Alk Phos (test code = Alk Phos) 45 39-136 N [facility] HospitalVnwbjixHWUZFYMDK9588-36-47 07:00:00 Test Item Value Reference Range Interpretation Comments Albumin Lvl (test code = Albumin Lvl) 3.4 3.5-5.0 L [facility] HospitalWigwmhrQPOQDZLDT0872-60-89 07:00:00 Test Item Value Reference Range Interpretation Comments B/C Ratio (test code = B/C Ratio) 10 6-25 N [facility] HospitalMneuhdkRRACIBUGB2954-27-40 07:00:00 Test Item Value Reference Range Interpretation Comments Total Protein (test code = Total 5.9 6.4-8.4 L Protein) [facility] HospitalUxqwbyaLFDWESQNJ6348-22-07 07:00:00 Test Item Value Reference Range Interpretation Comments Globulin (test code = Globulin) 2.5 2.0-4.0 N [facility] HospitalEpmqjquHIDMAYBDJ1135-57-15 07:00:00 Test Item Value Reference Range Interpretation Comments Bili Total (test code = Bili Total) 0.7 0.2-1.3 N [facility] HospitalNyfbiywPYVYZKNYQ5981-17-33 07:00:00 Test Item Value Reference Range Interpretation Comments A/G Ratio (test code = A/G Ratio) 1.4 0.7-1.6 N [facility] HospitalGjwacsiFGMWSZBUH9321-77-21 07:00:00 Test Item Value Reference Range Interpretation Comments AST (test code = AST) 62 See_Comment H [Auto mated message] The system which ge nerated this result transmit matteo reference range : <=37. The reference range was not used to interpr et this result as miesha l/abnormal. [facility] HospitalVwykwhoCTOECZBIMU9120-30-10 07:00:00 Test Item Value Reference Range Interpretation Comments Polychrom (test code = Slight (02/22/2013 N Polychrom) 02:00:00) [facility] HospitalKjctcluCSYBIDGUDB7622-11-71 07:00:00 Test Item Value Reference Range Interpretation Comments Plt Morph (test code = Normal (02/22/2013 N Plt Morph) 02:00:00) [facility] HospitalFhgnwrlVLWEVCLTW6187-55-57 07:00:00 Test Item Value Reference Range Interpretation Comments Magnesium Lvl (test code = Magnesium 1.6 1.8-2.4 L Lvl) [facility] HospitalVqcivokKULFYYGEO5217-02-52 07:00:00 Test Item Value Reference Range Interpretation Comments ALT (test code = ALT) 23 See_Comment N [Auto mated message] The system which ge nerated this result transmit matteo reference range : <=65. The reference range was not used to interpr et this result as miesha l/abnormal. [facility] HospitalUfzogijKVRVJNHYZ7036-50-47 07:00:00 Test Item Value Reference Range Interpretation Comments Alk Phos (test code = Alk Phos) 45 39-136 N [facility] HospitalTpfyrzrLSBXKIAPD6528-91-90 07:00:00 Test Item Value Reference Range Interpretation Comments Albumin Lvl (test code = Albumin Lvl) 3.4 3.5-5.0 L [facility] HospitalZkczvjhFMQLXLZEO3402-87-82 07:00:00 Test Item Value Reference Range Interpretation Comments B/C Ratio (test code = B/C Ratio) 10 6-25 N [facility] HospitalMcvcjpsTDTDSROYV6529-36-73 07:00:00 Test Item Value Reference Range Interpretation Comments Total Protein (test code = Total 5.9 6.4-8.4 L Protein) [facility] HospitalJdugnxdVEQAYHKTU9916-58-75 07:00:00 Test Item Value Reference Range Interpretation Comments Globulin (test code = Globulin) 2.5 2.0-4.0 N [facility] HospitalXbolzupHWZNFFVFW8754-50-90 07:00:00 Test Item Value Reference Range Interpretation Comments Bili Total (test code = Bili Total) 0.7 0.2-1.3 N [facility] HospitalCiebuwjPOQFOBRUS3005-31-82 07:00:00 Test Item Value Reference Range Interpretation Comments A/G Ratio (test code = A/G Ratio) 1.4 0.7-1.6 N [facility] HospitalYvejeixIKODCKXDI0178-06-72 07:00:00 Test Item Value Reference Range Interpretation Comments AST (test code = AST) 62 See_Comment H [Auto mated message] The system which ge nerated this result transmit matteo reference range : <=37. The reference range was not used to interpr et this result as miesha l/abnormal. [facility] HospitalXznzcuvOOUIJWJLMM0233-41-72 07:00:00 Test Item Value Reference Range Interpretation Comments Polychrom (test code = Slight (02/22/2013 N Polychrom) 02:00:00) [facility] HospitalHtavgpiPWLUGMMJSA5586-32-39 07:00:00 Test Item Value Reference Range Interpretation Comments Plt Morph (test code = Normal (02/22/2013 N Plt Morph) 02:00:00) [facility] HospitalDiejoujHDEMAKBRF0164-93-88 07:00:00 Test Item Value Reference Range Interpretation Comments Magnesium Lvl (test code = Magnesium 1.6 1.8-2.4 L Lvl) [facility] HospitalBnmqkebVMOWCSNOS8698-91-20 07:00:00 Test Item Value Reference Range Interpretation Comments ALT (test code = ALT) 23 See_Comment N [Auto mated message] The system which ge nerated this result transmit matteo reference range : <=65. The reference range was not used to interpr et this result as miesha l/abnormal. [facility] HospitalKwutnylUPNHABQBS4800-87-48 07:00:00 Test Item Value Reference Range Interpretation Comments Alk Phos (test code = Alk Phos) 45 39-136 N [facility] HospitalEhvdrsmFFBSEGITB2311-14-71 07:00:00 Test Item Value Reference Range Interpretation Comments Albumin Lvl (test code = Albumin Lvl) 3.4 3.5-5.0 L [facility] HospitalBgukykaHELNADNNQ5404-70-60 07:00:00 Test Item Value Reference Range Interpretation Comments B/C Ratio (test code = B/C Ratio) 10 6-25 N [facility] HospitalPonccnuHVPQAQDIW2635-68-09 07:00:00 Test Item Value Reference Range Interpretation Comments Total Protein (test code = Total 5.9 6.4-8.4 L Protein) [facility] HospitalUgokjhaLXHQVCXJV8088-02-42 07:00:00 Test Item Value Reference Range Interpretation Comments Globulin (test code = Globulin) 2.5 2.0-4.0 N [facility] HospitalZfjkdtpFLNBHGEWO8685-23-41 07:00:00 Test Item Value Reference Range Interpretation Comments Bili Total (test code = Bili Total) 0.7 0.2-1.3 N [facility] HospitalHargqzyEKRNGTLNT6520-69-85 07:00:00 Test Item Value Reference Range Interpretation Comments A/G Ratio (test code = A/G Ratio) 1.4 0.7-1.6 N [facility] HospitalFbbbgdvSCNSETNIU6921-44-29 07:00:00 Test Item Value Reference Range Interpretation Comments AST (test code = AST) 62 See_Comment H [Auto mated message] The system which ge nerated this result transmit matteo reference range : <=37. The reference range was not used to interpr et this result as miesha l/abnormal. [facility] HospitalCwlodwuJLKVHODVUW6857-75-70 07:00:00 Test Item Value Reference Range Interpretation Comments Polychrom (test code = Slight (02/22/2013 N Polychrom) 02:00:00) [facility] HospitalLlpwydvCHEGCOVFUX1296-07-73 07:00:00 Test Item Value Reference Range Interpretation Comments Plt Morph (test code = Normal (02/22/2013 N Plt Morph) 02:00:00) [facility] HospitalPdmcgxcPQRZXHFRI7824-26-09 07:00:00 Test Item Value Reference Range Interpretation Comments Magnesium Lvl (test code = Magnesium 1.6 1.8-2.4 L Lvl) [facility] HospitalYfrmyrbIKPFVKUSY5404-55-09 07:00:00 Test Item Value Reference Range Interpretation Comments ALT (test code = ALT) 23 See_Comment N [Auto mated message] The system which ge nerated this result transmit matteo reference range : <=65. The reference range was not used to interpr et this result as miesha l/abnormal. [facility] HospitalQzmsbxyJTITHKBGS6941-08-63 07:00:00 Test Item Value Reference Range Interpretation Comments Alk Phos (test code = Alk Phos) 45 39-136 N [facility] HospitalCvoaaoxCUZRAMZAN6852-01-13 07:00:00 Test Item Value Reference Range Interpretation Comments Albumin Lvl (test code = Albumin Lvl) 3.4 3.5-5.0 L [facility] HospitalSfnjzpmPPFLUNYKU2293-10-34 07:00:00 Test Item Value Reference Range Interpretation Comments B/C Ratio (test code = B/C Ratio) 10 6-25 N [facility] HospitalZptuzqdZAQYZEMUY2629-33-33 07:00:00 Test Item Value Reference Range Interpretation Comments Total Protein (test code = Total 5.9 6.4-8.4 L Protein) [facility] HospitalXjofpidVVBUQDBDB9930-33-40 07:00:00 Test Item Value Reference Range Interpretation Comments Globulin (test code = Globulin) 2.5 2.0-4.0 N [facility] HospitalUcmztzpWXOKMIHQS4158-05-44 07:00:00 Test Item Value Reference Range Interpretation Comments Bili Total (test code = Bili Total) 0.7 0.2-1.3 N [facility] HospitalLurnaywAMJUAIUBX3830-17-57 07:00:00 Test Item Value Reference Range Interpretation Comments A/G Ratio (test code = A/G Ratio) 1.4 0.7-1.6 N [facility] HospitalWdyauzaUMFTYRYVV6528-06-95 07:00:00 Test Item Value Reference Range Interpretation Comments AST (test code = AST) 62 See_Comment H [Auto mated message] The system which ge nerated this result transmit matteo reference range : <=37. The reference range was not used to interpr et this result as miesha l/abnormal. [facility] HospitalSszpggrQYOXPSFEXJ5640-77-57 07:00:00 Test Item Value Reference Range Interpretation Comments Polychrom (test code = Slight (02/22/2013 N Polychrom) 02:00:00) [facility] HospitalBnpyrqcXMQNIIXMZN5404-64-25 07:00:00 Test Item Value Reference Range Interpretation Comments Plt Morph (test code = Normal (02/22/2013 N Plt Morph) 02:00:00) [facility] HospitalUlxnjygZCGOZZUNT7855-41-97 07:00:00 Test Item Value Reference Range Interpretation Comments Magnesium Lvl (test code = Magnesium 1.6 1.8-2.4 L Lvl) [facility] HospitalQcprnlaBKGOCSEYX4880-22-10 07:00:00 Test Item Value Reference Range Interpretation Comments ALT (test code = ALT) 23 See_Comment N [Auto mated message] The system which ge nerated this result transmit matteo reference range : <=65. The reference range was not used to interpr et this result as miesha l/abnormal. [facility] HospitalNckgqnkYNKHRJRLY1983-95-83 07:00:00 Test Item Value Reference Range Interpretation Comments Alk Phos (test code = Alk Phos) 45 39-136 N [facility] HospitalOjkmunuUZWRYNZAI1667-79-16 07:00:00 Test Item Value Reference Range Interpretation Comments Albumin Lvl (test code = Albumin Lvl) 3.4 3.5-5.0 L [facility] HospitalMbuhmacFBJHTHNVU5240-75-42 07:00:00 Test Item Value Reference Range Interpretation Comments B/C Ratio (test code = B/C Ratio) 10 6-25 N [facility] HospitalTdtjzjjFZNUUNCSX0881-22-23 07:00:00 Test Item Value Reference Range Interpretation Comments Total Protein (test code = Total 5.9 6.4-8.4 L Protein) [facility] HospitalNnapnkiSHFRKTYPE7610-26-16 07:00:00 Test Item Value Reference Range Interpretation Comments Globulin (test code = Globulin) 2.5 2.0-4.0 N [facility] HospitalVthluyqADYRWZYHU8903-14-59 07:00:00 Test Item Value Reference Range Interpretation Comments Bili Total (test code = Bili Total) 0.7 0.2-1.3 N [facility] HospitalTbnuhpjMKBJEXNDH7527-58-98 07:00:00 Test Item Value Reference Range Interpretation Comments A/G Ratio (test code = A/G Ratio) 1.4 0.7-1.6 N [facility] HospitalTkjkiegUPIQZQRFM4160-57-21 07:00:00 Test Item Value Reference Range Interpretation Comments AST (test code = AST) 62 See_Comment H [Auto mated message] The system which ge nerated this result transmit matteo reference range : <=37. The reference range was not used to interpr et this result as miesha l/abnormal. [facility]FnsebcnKAXLFQFFBM3152-56-76 07:00:00 Test Item Value Reference Range Interpretation Comments Polychrom (test code = Slight (02/22/2013 N Polychrom) 02:00:00) [facility] CenterVneinbpCNICIRIWTI3829-43-62 07:00:00 Test Item Value Reference Range Interpretation Comments Plt Morph (test code = Normal (02/22/2013 N Plt Morph) 02:00:00) [facility] CenterIwyrogpMJKLYEKIS1981-67-83 00:49:09 Test Item Value Reference Range Interpretation Comments [employer] (test code = N/A (02/21/2013 N [employer]) 19:49:09) [facility] HospitalHjwhzthDANNOWFJE3200-30-41 00:49:09 Test Item Value Reference Range Interpretation Comments [employer] (test code = N/A (02/21/2013 N [employer]) 19:49:09) [facility] HospitalAdifwefMGGIXTVEH1291-69-73 00:49:09 Test Item Value Reference Range Interpretation Comments [employer] (test code = N/A (02/21/2013 N [employer]) 19:49:09) [facility] HospitalKgewaflEFRXWCCJV3968-43-63 00:49:09 Test Item Value Reference Range Interpretation Comments [employer] (test code = N/A (02/21/2013 N [employer]) 19:49:09) [facility] HospitalIrdtnswZVWOYQHSG0473-59-81 00:49:09 Test Item Value Reference Range Interpretation Comments [employer] (test code = N/A (02/21/2013 N [employer]) 19:49:09) [facility] HospitalUtgnkuhRUYORNSBR8226-96-04 00:49:09 Test Item Value Reference Range Interpretation Comments [employer] (test code = N/A (02/21/2013 N [employer]) 19:49:09) [facility] CenterLhxqvcnPJIHNCBFZG9034-65-67 22:20:00 Test Item Value Reference Range Interpretation Comments Fibrinogen Lvl (test code = Fibrinogen 241 230-510 N Lvl) [facility] HospitalTbboyijWLOKUGAZJI2816-23-41 22:20:00 Test Item Value Reference Range Interpretation Comments INR (test code = INR) 1.10 0.85-1.17 N [facility] HospitalUemuqinCFBJVNWWMH7829-81-14 22:20:00 Test Item Value Reference Range Interpretation Comments PT (test code = PT) 14.1 s 12.0-14.7 N [facility] HospitalHgjabgvBJQSJAMBRA9309-29-37 22:20:00 Test Item Value Reference Range Interpretation Comments PTT (test code = PTT) 31.5 s 22.9-35.8 N [facility] HospitalTqieemgSMZRXCJIBY7501-83-86 22:20:00 Test Item Value Reference Range Interpretation Comments Fibrinogen Lvl (test code = Fibrinogen 241 230-510 N Lvl) [facility] HospitalRjtfwejVEBWNFPQZV2975-72-30 22:20:00 Test Item Value Reference Range Interpretation Comments INR (test code = INR) 1.10 0.85-1.17 N [facility] HospitalIjrxxyqTARUYUMTZE8590-78-95 22:20:00 Test Item Value Reference Range Interpretation Comments PT (test code = PT) 14.1 s 12.0-14.7 N [facility] HospitalXjrlvrdWQGXYOETSM8586-51-71 22:20:00 Test Item Value Reference Range Interpretation Comments PTT (test code = PTT) 31.5 s 22.9-35.8 N [facility] HospitalWvnlkatOQDOQLIBJS8727-80-79 22:20:00 Test Item Value Reference Range Interpretation Comments Fibrinogen Lvl (test code = Fibrinogen 241 230-510 N Lvl) [facility] HospitalRfknksqXHUXASVLJH3789-05-20 22:20:00 Test Item Value Reference Range Interpretation Comments INR (test code = INR) 1.10 0.85-1.17 N [facility] HospitalCdmaqfsQCIUKQJYFO0937-35-37 22:20:00 Test Item Value Reference Range Interpretation Comments PT (test code = PT) 14.1 s 12.0-14.7 N [facility] HospitalEsyxfcrPGKMJUHKHE7506-38-67 22:20:00 Test Item Value Reference Range Interpretation Comments PTT (test code = PTT) 31.5 s 22.9-35.8 N [facility] HospitalGonseunYDVXZHRTRY4422-66-40 22:20:00 Test Item Value Reference Range Interpretation Comments Fibrinogen Lvl (test code = Fibrinogen 241 230-510 N Lvl) [facility] HospitalHnpanzmZHDKMHHHTW2693-34-73 22:20:00 Test Item Value Reference Range Interpretation Comments INR (test code = INR) 1.10 0.85-1.17 N [facility] HospitalLebzrdcZEKGIRJGVA5468-48-82 22:20:00 Test Item Value Reference Range Interpretation Comments PT (test code = PT) 14.1 s 12.0-14.7 N [facility] HospitalWcychxnKXLLGVWBUU7109-86-41 22:20:00 Test Item Value Reference Range Interpretation Comments PTT (test code = PTT) 31.5 s 22.9-35.8 N [facility] HospitalBkscpmtBOUCZCAVXH6212-26-98 22:20:00 Test Item Value Reference Range Interpretation Comments Fibrinogen Lvl (test code = Fibrinogen 241 230-510 N Lvl) [facility] HospitalVoileurXSCZYTJNWU9698-07-70 22:20:00 Test Item Value Reference Range Interpretation Comments INR (test code = INR) 1.10 0.85-1.17 N [facility] HospitalQojkhcdFAXCEZDDGY0535-19-27 22:20:00 Test Item Value Reference Range Interpretation Comments PT (test code = PT) 14.1 s 12.0-14.7 N [facility] HospitalVdqivmnBJUNQNOJUA5344-35-17 22:20:00 Test Item Value Reference Range Interpretation Comments PTT (test code = PTT) 31.5 s 22.9-35.8 N [facility] HospitalQkaynvcIUHWYUVNXH0766-62-17 22:20:00 Test Item Value Reference Range Interpretation Comments Fibrinogen Lvl (test code = Fibrinogen 241 230-510 N Lvl) [facility] HospitalDxhyghiVROOIVKWGB3269-02-36 22:20:00 Test Item Value Reference Range Interpretation Comments INR (test code = INR) 1.10 0.85-1.17 N [facility] HospitalZfgmsvrOMMCLDTTNP8281-70-52 22:20:00 Test Item Value Reference Range Interpretation Comments PT (test code = PT) 14.1 s 12.0-14.7 N [facility] HospitalQffonzvQVSDGTHHQU1776-85-76 22:20:00 Test Item Value Reference Range Interpretation Comments PTT (test code = PTT) 31.5 s 22.9-35.8 N [facility] HospitalWyweegyAMQUYRZZF6431-52-06 21:41:00 Test Item Value Reference Range Interpretation Comments POC A Glu (test code = POC A Glu) 169 70-99 [facility] Hospital[facility]xopbryJYMYTRIZH6365-95-74 21:41:00 Test Item Value Reference Range Interpretation Comments POC A Ca Ion (test code = POC A Ca Ion) 1.48 1.05-1.25 [facility]EegksiyWWMQGIIBY3048-91-92 21:41:00 Test Item Value Reference Range Interpretation Comments POC A Hct (test code = POC A Hct) 25.0 36.0-48.0 L [facility] HospitalGqfjwmpKICDFIWNH0066-33-19 21:41:00 Test Item Value Reference Range Interpretation Comments POC A K (test code = POC A K) 3.4 3.5-5.1 L [facility] HospitalIkhynaaWVPIEHSMX7461-00-21 21:41:00 Test Item Value Reference Range Interpretation Comments POC A Na (test code = POC A Na) 139 135-145 N [facility] HospitalSpaxieyOWYJSBYPD6827-30-35 21:41:00 Test Item Value Reference Range Interpretation Comments POC A PO2 (test code = POC A PO2) 182 80-100 H [facility] HospitalUnobpqnNMGGRNJRH5458-82-18 21:41:00 Test Item Value Reference Range Interpretation Comments POC A pH (test code = POC A pH) 7.39 7.35-7.45 N [facility] HospitalNhiwaygZZHAGCYYD6259-52-71 21:41:00 Test Item Value Reference Range Interpretation Comments POC A PCO2 (test code = POC A PCO2) 45 35-45 N [facility] HospitalLmgwqtyRHQAWSWJD4900-71-32 21:41:00 Test Item Value Reference Range Interpretation Comments POC A HCO3 (test code = POC A HCO3) 27 22-26 H [facility] HospitalIsxrjclMTZSQLBKU8684-45-43 21:41:00 Test Item Value Reference Range Interpretation Comments POC A Source (test code = POC A Source) ART [facility] HospitalJdamnawLVIRMZACN9984-61-65 21:41:00 Test Item Value Reference Range Interpretation Comments POC A Temp (test code = POC A Temp) 37.0 [facility] HospitalBuulgxsFXAGYRTMV3429-20-21 21:41:00 Test Item Value Reference Range Interpretation Comments POC A O2 Sat (test code = POC A O2 Sat) 100.0 95.0-100.0 N [facility] HospitalRidsoikRWLYSQDWR4102-02-02 21:41:00 Test Item Value Reference Range Interpretation Comments POC A BE (test code = 2 See_Comment N [Auto mated message] The POC A BE) system which ge nerated this result transmit matteo reference range : <=2. The reference range was not used to interpr et this result as miesha l/abnormal. [facility] HospitalHohuaaoQJYYKVUBJ5791-58-55 21:41:00 Test Item Value Reference Range Interpretation Comments POC A Glu (test code = POC A Glu) 169 70-99 H [facility] HospitalEwhokywPDBXIWFTQ5799-96-86 21:41:00 Test Item Value Reference Range Interpretation Comments POC A Ca Ion (test code = POC A Ca Ion) 1.48 1.05-1.25 H [facility] HospitalUuavwmeWWCMUNASN0753-25-21 21:41:00 Test Item Value Reference Range Interpretation Comments POC A Hct (test code = POC A Hct) 25.0 36.0-48.0 L [facility] HospitalXgtrteqOZOHLRKPH2476-08-13 21:41:00 Test Item Value Reference Range Interpretation Comments POC A K (test code = POC A K) 3.4 3.5-5.1 L [facility] HospitalWtwpwruDDBYHDFCL2146-87-48 21:41:00 Test Item Value Reference Range Interpretation Comments POC A Na (test code = POC A Na) 139 135-145 N [facility] HospitalZhfcyerPQSGFEBBI0408-04-58 21:41:00 Test Item Value Reference Range Interpretation Comments POC A PO2 (test code = POC A PO2) 182 80-100 H [facility] HospitalKjmjstiJPPSMSQPS4380-50-90 21:41:00 Test Item Value Reference Range Interpretation Comments POC A pH (test code = POC A pH) 7.39 7.35-7.45 N [facility] HospitalYqllagyWPUDIZWEL2373-67-65 21:41:00 Test Item Value Reference Range Interpretation Comments POC A PCO2 (test code = POC A PCO2) 45 35-45 N [facility] HospitalTpwdwftLAVGPJITY2010-81-17 21:41:00 Test Item Value Reference Range Interpretation Comments POC A HCO3 (test code = POC A HCO3) 27 22-26 H [facility] HospitalJmfzuqfFVWUUDKGY6516-38-77 21:41:00 Test Item Value Reference Range Interpretation Comments POC A Source (test code = POC A Source) ART [facility] HospitalPpavhthZMRVAMNOM2988-80-35 21:41:00 Test Item Value Reference Range Interpretation Comments POC A Temp (test code = POC A Temp) 37.0 [facility] HospitalIjacoshAVHYUBFII4015-45-75 21:41:00 Test Item Value Reference Range Interpretation Comments POC A O2 Sat (test code = POC A O2 Sat) 100.0 95.0-100.0 N [facility] HospitalAeupfimYDZEHAPJX3172-29-06 21:41:00 Test Item Value Reference Range Interpretation Comments POC A BE (test code = 2 See_Comment N [Auto mated message] The POC A BE) system which ge nerated this result transmit matteo reference range : <=2. The reference range was not used to interpr et this result as miesha l/abnormal. [facility] HospitalApaxnytFBZOMIFOY6204-78-56 21:41:00 Test Item Value Reference Range Interpretation Comments POC A Glu (test code = POC A Glu) 169 70-99 H [facility] HospitalIcdnmqvXXMAKFMFN8725-90-65 21:41:00 Test Item Value Reference Range Interpretation Comments POC A Ca Ion (test code = POC A Ca Ion) 1.48 1.05-1.25 H [facility] HospitalRygkamnZHNDXIMDO9975-31-90 21:41:00 Test Item Value Reference Range Interpretation Comments POC A Hct (test code = POC A Hct) 25.0 36.0-48.0 L [facility] HospitalSqnnlmxNFVNFTHWS3690-47-51 21:41:00 Test Item Value Reference Range Interpretation Comments POC A K (test code = POC A K) 3.4 3.5-5.1 L [facility] HospitalAjtufctMKNCXGHLQ8797-98-76 21:41:00 Test Item Value Reference Range Interpretation Comments POC A Na (test code = POC A Na) 139 135-145 N [facility] HospitalXwvagmxEQOWYAYVI7981-83-90 21:41:00 Test Item Value Reference Range Interpretation Comments POC A PO2 (test code = POC A PO2) 182 80-100 H [facility] HospitalDaocresWJQKXDMQG7035-10-82 21:41:00 Test Item Value Reference Range Interpretation Comments POC A pH (test code = POC A pH) 7.39 7.35-7.45 N [facility] HospitalQhndnplZZWVILXGU0635-69-88 21:41:00 Test Item Value Reference Range Interpretation Comments POC A PCO2 (test code = POC A PCO2) 45 35-45 N [facility] HospitalTfhtotxLAQPXOSDV8491-45-76 21:41:00 Test Item Value Reference Range Interpretation Comments POC A HCO3 (test code = POC A HCO3) 27 22-26 H [facility] HospitalBswsanmVSKIHDSWW8605-16-25 21:41:00 Test Item Value Reference Range Interpretation Comments POC A Source (test code = POC A Source) ART [facility] HospitalJmnebjpLGTPRLMOQ9613-90-42 21:41:00 Test Item Value Reference Range Interpretation Comments POC A Temp (test code = POC A Temp) 37.0 [facility] HospitalYgtfsspJTBFPMROI7560-58-86 21:41:00 Test Item Value Reference Range Interpretation Comments POC A O2 Sat (test code = POC A O2 Sat) 100.0 95.0-100.0 N [facility] HospitalLexwzkuSZFBBADCX1178-77-23 21:41:00 Test Item Value Reference Range Interpretation Comments POC A BE (test code = 2 See_Comment N [Auto mated message] The POC A BE) system which ge nerated this result transmit matteo reference range : <=2. The reference range was not used to interpr et this result as miesha l/abnormal. [facility] HospitalUlczjasSTAHRXKSM6143-93-98 21:41:00 Test Item Value Reference Range Interpretation Comments POC A Glu (test code = POC A Glu) 169 70-99 H [facility] HospitalCltxnajCILKZFBWE2108-54-30 21:41:00 Test Item Value Reference Range Interpretation Comments POC A Ca Ion (test code = POC A Ca Ion) 1.48 1.05-1.25 H [facility] HospitalPhmkidiSWRBDVUNG3701-98-80 21:41:00 Test Item Value Reference Range Interpretation Comments POC A Hct (test code = POC A Hct) 25.0 36.0-48.0 L [facility] HospitalQagddeeUSBYJZVZL5734-02-12 21:41:00 Test Item Value Reference Range Interpretation Comments POC A K (test code = POC A K) 3.4 3.5-5.1 L [facility] HospitalQhncvcvWGSSIMLGL1659-77-25 21:41:00 Test Item Value Reference Range Interpretation Comments POC A Na (test code = POC A Na) 139 135-145 N [facility] HospitalSvepnaaWEAALPCJA4198-77-51 21:41:00 Test Item Value Reference Range Interpretation Comments POC A PO2 (test code = POC A PO2) 182 80-100 H [facility] HospitalSfwhnrzHCFXNNTEG1713-50-67 21:41:00 Test Item Value Reference Range Interpretation Comments POC A pH (test code = POC A pH) 7.39 7.35-7.45 N [facility] HospitalSmyvkcdFYMTPQSKL6902-46-16 21:41:00 Test Item Value Reference Range Interpretation Comments POC A PCO2 (test code = POC A PCO2) 45 35-45 N [facility] HospitalVgwtgdtTTHAZEADA8834-80-00 21:41:00 Test Item Value Reference Range Interpretation Comments POC A HCO3 (test code = POC A HCO3) 27 22-26 H [facility] HospitalOlseoxjRRFAPVMML7652-55-93 21:41:00 Test Item Value Reference Range Interpretation Comments POC A Source (test code = POC A Source) ART [facility] HospitalErpezghPJXIXXBUZ3875-21-61 21:41:00 Test Item Value Reference Range Interpretation Comments POC A Temp (test code = POC A Temp) 37.0 [facility] HospitalEeibuwyKZFJHRQZW9510-83-38 21:41:00 Test Item Value Reference Range Interpretation Comments POC A O2 Sat (test code = POC A O2 Sat) 100.0 95.0-100.0 N [facility] HospitalBqhgnmpTDGEPONDD6016-58-18 21:41:00 Test Item Value Reference Range Interpretation Comments POC A BE (test code = 2 See_Comment N [Auto mated message] The POC A BE) system which ge nerated this result transmit matteo reference range : <=2. The reference range was not used to interpr et this result as miesha l/abnormal. [facility] HospitalUynwbujFMFWDZQNP4435-35-04 21:41:00 Test Item Value Reference Range Interpretation Comments POC A Glu (test code = POC A Glu) 169 70-99 H [facility] HospitalKnybctaWRTTSCKKK2583-55-40 21:41:00 Test Item Value Reference Range Interpretation Comments POC A Ca Ion (test code = POC A Ca Ion) 1.48 1.05-1.25 H [facility] HospitalUgprchaOKHHEKDXV6161-30-41 21:41:00 Test Item Value Reference Range Interpretation Comments POC A Hct (test code = POC A Hct) 25.0 36.0-48.0 L [facility] HospitalZaoupvuDMXIXWQKA5751-53-16 21:41:00 Test Item Value Reference Range Interpretation Comments POC A K (test code = POC A K) 3.4 3.5-5.1 L [facility] HospitalVratgzpTOSUVZOMS7561-94-79 21:41:00 Test Item Value Reference Range Interpretation Comments POC A Na (test code = POC A Na) 139 135-145 N [facility] HospitalQobltquBSWMBQQDU3413-90-76 21:41:00 Test Item Value Reference Range Interpretation Comments POC A PO2 (test code = POC A PO2) 182 80-100 H [facility] HospitalJplyouwZMEZQUGNY8094-02-42 21:41:00 Test Item Value Reference Range Interpretation Comments POC A pH (test code = POC A pH) 7.39 7.35-7.45 N [facility] HospitalLoxltzqRAFPAWUPH6452-68-85 21:41:00 Test Item Value Reference Range Interpretation Comments POC A PCO2 (test code = POC A PCO2) 45 35-45 N [facility] HospitalCozptsxQYTLTXRQG2875-11-28 21:41:00 Test Item Value Reference Range Interpretation Comments POC A HCO3 (test code = POC A HCO3) 27 22-26 H [facility] HospitalRiqohpaXVHQSDWWJ9512-77-25 21:41:00 Test Item Value Reference Range Interpretation Comments POC A Source (test code = POC A Source) ART [facility] HospitalNkqirngDNJLMVJXD4110-56-75 21:41:00 Test Item Value Reference Range Interpretation Comments POC A Temp (test code = POC A Temp) 37.0 [facility] HospitalZglzfabOJJLGWVAK5738-52-01 21:41:00 Test Item Value Reference Range Interpretation Comments POC A O2 Sat (test code = POC A O2 Sat) 100.0 95.0-100.0 N [facility] HospitalQyoizdeHSSETTAVD1359-38-90 21:41:00 Test Item Value Reference Range Interpretation Comments POC A BE (test code = 2 See_Comment N [Auto mated message] The POC A BE) system which ge nerated this result transmit matteo reference range : <=2. The reference range was not used to interpr et this result as miesha l/abnormal. [facility] HospitalBkwgdjjIYPCXMWDF7633-77-20 21:41:00 Test Item Value Reference Range Interpretation Comments POC A Glu (test code = POC A Glu) 169 70-99 H [facility] HospitalTejshhhBHOTXSEAH1770-64-51 21:41:00 Test Item Value Reference Range Interpretation Comments POC A Ca Ion (test code = POC A Ca Ion) 1.48 1.05-1.25 H [facility] HospitalYcvvijdHDWYHKPSH4143-08-16 21:41:00 Test Item Value Reference Range Interpretation Comments POC A Hct (test code = POC A Hct) 25.0 36.0-48.0 L [facility] HospitalAexdbwvNPKBAKNNG8053-35-31 21:41:00 Test Item Value Reference Range Interpretation Comments POC A K (test code = POC A K) 3.4 3.5-5.1 L [facility] HospitalYtqjulrIGQELPPEH5494-64-12 21:41:00 Test Item Value Reference Range Interpretation Comments POC A Na (test code = POC A Na) 139 135-145 N [facility] HospitalNhgbdflCRESXVJRQ2447-88-84 21:41:00 Test Item Value Reference Range Interpretation Comments POC A PO2 (test code = POC A PO2) 182 80-100 H [facility] HospitalTaucnroJZZTLKNEA4943-45-49 21:41:00 Test Item Value Reference Range Interpretation Comments POC A pH (test code = POC A pH) 7.39 7.35-7.45 N [facility] HospitalJpataprOYZLPBJIF0575-42-85 21:41:00 Test Item Value Reference Range Interpretation Comments POC A PCO2 (test code = POC A PCO2) 45 35-45 N [facility] HospitalCpvegtbOAMFIYFPH7212-15-36 21:41:00 Test Item Value Reference Range Interpretation Comments POC A HCO3 (test code = POC A HCO3) 27 22-26 H [facility] HospitalVdzalpjOLXAAKIGT6036-76-51 21:41:00 Test Item Value Reference Range Interpretation Comments POC A Source (test code = POC A Source) ART [facility] HospitalWyhrgjpIIUSUSBWB0843-07-34 21:41:00 Test Item Value Reference Range Interpretation Comments POC A Temp (test code = POC A Temp) 37.0 [facility] HospitalKdhfbqnRVJCBRKHY0419-75-06 21:41:00 Test Item Value Reference Range Interpretation Comments POC A O2 Sat (test code = POC A O2 Sat) 100.0 95.0-100.0 N [facility] HospitalNgfqisuPVPJFYHTG3652-32-42 21:41:00 Test Item Value Reference Range Interpretation Comments POC A BE (test code = 2 See_Comment N [Auto mated message] The POC A BE) system which ge nerated this result transmit matteo reference range : <=2. The reference range was not used to interpr et this result as miesha l/abnormal. [facility] HospitalGwesltnJRXZZYQJN4355-75-43 21:10:00 Test Item Value Reference Range Interpretation Comments POC A Glu (test code = POC A Glu) 152 70-99 H [facility] HospitalEjtdrhvOUOFLCNYH0650-44-47 21:10:00 Test Item Value Reference Range Interpretation Comments POC A Ca Ion (test code = POC A Ca Ion) 1.54 1.05-1.25 H [facility] HospitalTocozjcQCQRVMUMA8108-11-13 21:10:00 Test Item Value Reference Range Interpretation Comments POC A PO2 (test code = POC A PO2) 312 80-100 H [facility] HospitalPivtaupBWHWENPTH8984-21-61 21:10:00 Test Item Value Reference Range Interpretation Comments POC A PCO2 (test code = POC A PCO2) 49 35-45 H [facility] HospitalDnbwpuwRMWPCRTZE6521-04-32 21:10:00 Test Item Value Reference Range Interpretation Comments POC A HCO3 (test code = POC A HCO3) 28 22-26 H [facility] HospitalYlfavixFZUEQPLEY8059-20-93 21:10:00 Test Item Value Reference Range Interpretation Comments POC A Temp (test code = POC A Temp) 37.0 [facility] HospitalCnsciyzNLVYQFQQC6477-63-88 21:10:00 Test Item Value Reference Range Interpretation Comments POC A Hct (test code = POC A Hct) 25.0 36.0-48.0 L [facility] HospitalAjtbiuyFHDSISSYK8493-02-50 21:10:00 Test Item Value Reference Range Interpretation Comments POC A Na (test code = POC A Na) 138 135-145 N [facility] HospitalApfumlyPEFOXAXVB8946-01-36 21:10:00 Test Item Value Reference Range Interpretation Comments POC A K (test code = POC A K) 4.0 3.5-5.1 N [facility] HospitalDudjelqWTFEZHEXM0260-57-07 21:10:00 Test Item Value Reference Range Interpretation Comments POC A BE (test code = 3 See_Comment H [Auto mated message] The POC A BE) system which ge nerated this result transmit matteo reference range : <=2. The reference range was not used to interpr et this result as miesha l/abnormal. [facility] HospitalTajcvawBFMRUGHEC5224-24-77 21:10:00 Test Item Value Reference Range Interpretation Comments POC A O2 Sat (test code = POC A O2 Sat) 100.0 95.0-100.0 N [facility] HospitalZfxgonoTZHPEQRGE3106-07-42 21:10:00 Test Item Value Reference Range Interpretation Comments POC A pH (test code = POC A pH) 7.37 7.35-7.45 N [facility] HospitalBxvhnmbPXDYVQNYC2350-06-68 21:10:00 Test Item Value Reference Range Interpretation Comments POC A Source (test code = POC A Source) ART [facility] HospitalMmiwhhlHLLYDCJXJ3205-04-87 21:10:00 Test Item Value Reference Range Interpretation Comments POC A Glu (test code = POC A Glu) 152 70-99 H [facility] HospitalIyayhxxOOZDPUUSE7401-84-37 21:10:00 Test Item Value Reference Range Interpretation Comments POC A Ca Ion (test code = POC A Ca Ion) 1.54 1.05-1.25 H [facility] HospitalSevciqpKRAQQPBIN2446-14-46 21:10:00 Test Item Value Reference Range Interpretation Comments POC A PO2 (test code = POC A PO2) 312 80-100 H [facility] HospitalSbbgiuaMQICOFAND0528-94-17 21:10:00 Test Item Value Reference Range Interpretation Comments POC A PCO2 (test code = POC A PCO2) 49 35-45 H [facility] HospitalSrxpiofXXLUAOUZQ1046-49-31 21:10:00 Test Item Value Reference Range Interpretation Comments POC A HCO3 (test code = POC A HCO3) 28 22-26 H [facility] HospitalGayamccVJOCSSUMU2031-66-09 21:10:00 Test Item Value Reference Range Interpretation Comments POC A Temp (test code = POC A Temp) 37.0 [facility] HospitalJpmdwexFYWIUEHNG6880-28-06 21:10:00 Test Item Value Reference Range Interpretation Comments POC A Hct (test code = POC A Hct) 25.0 36.0-48.0 L [facility] HospitalIyjrqklMVBSBEOEL4273-35-24 21:10:00 Test Item Value Reference Range Interpretation Comments POC A Na (test code = POC A Na) 138 135-145 N [facility] HospitalPymfopgHDQSYGRQM7351-01-89 21:10:00 Test Item Value Reference Range Interpretation Comments POC A K (test code = POC A K) 4.0 3.5-5.1 N [facility] HospitalLegxsxfFIZOSGWVD2364-37-88 21:10:00 Test Item Value Reference Range Interpretation Comments POC A BE (test code = 3 See_Comment H [Auto mated message] The POC A BE) system which ge nerated this result transmit matteo reference range : <=2. The reference range was not used to interpr et this result as miesha l/abnormal. [facility] HospitalZyqpnexBZBVNTNTZ9889-13-59 21:10:00 Test Item Value Reference Range Interpretation Comments POC A O2 Sat (test code = POC A O2 Sat) 100.0 95.0-100.0 N [facility] HospitalQwnqzkiWCUWJWZXM5891-06-49 21:10:00 Test Item Value Reference Range Interpretation Comments POC A pH (test code = POC A pH) 7.37 7.35-7.45 N [facility] HospitalGjfrfqfBNOQPWPYQ3939-50-05 21:10:00 Test Item Value Reference Range Interpretation Comments POC A Source (test code = POC A Source) ART [facility] HospitalPqacjvsLZUTAARXR9129-86-16 21:10:00 Test Item Value Reference Range Interpretation Comments POC A Glu (test code = POC A Glu) 152 70-99 H [facility] HospitalKnubheuWTTCLWGWI9817-35-12 21:10:00 Test Item Value Reference Range Interpretation Comments POC A Ca Ion (test code = POC A Ca Ion) 1.54 1.05-1.25 H [facility] HospitalStvdwdtBRDFXQBZO5651-35-59 21:10:00 Test Item Value Reference Range Interpretation Comments POC A PO2 (test code = POC A PO2) 312 80-100 H [facility] HospitalTnucubqHMNPSFDOG6429-88-31 21:10:00 Test Item Value Reference Range Interpretation Comments POC A PCO2 (test code = POC A PCO2) 49 35-45 H [facility] HospitalJoboxwfEPDONTWXC9124-23-67 21:10:00 Test Item Value Reference Range Interpretation Comments POC A HCO3 (test code = POC A HCO3) 28 22-26 H [facility] HospitalMwedcnnRAZWWAWXN2401-85-10 21:10:00 Test Item Value Reference Range Interpretation Comments POC A Temp (test code = POC A Temp) 37.0 [facility] HospitalOifgttfUTGCRWRGA4841-66-03 21:10:00 Test Item Value Reference Range Interpretation Comments POC A Hct (test code = POC A Hct) 25.0 36.0-48.0 L [facility] HospitalQdilncnBHOIZWOFS9683-50-17 21:10:00 Test Item Value Reference Range Interpretation Comments POC A Na (test code = POC A Na) 138 135-145 N [facility] HospitalEnsjgboMTCSDDLTQ0466-40-28 21:10:00 Test Item Value Reference Range Interpretation Comments POC A K (test code = POC A K) 4.0 3.5-5.1 N [facility] HospitalZhhktndMLCJJLEUM6514-49-86 21:10:00 Test Item Value Reference Range Interpretation Comments POC A BE (test code = 3 See_Comment H [Auto mated message] The POC A BE) system which ge nerated this result transmit matteo reference range : <=2. The reference range was not used to interpr et this result as miesha l/abnormal. [facility] HospitalXmdjavqQRDQIMXSM2808-73-75 21:10:00 Test Item Value Reference Range Interpretation Comments POC A O2 Sat (test code = POC A O2 Sat) 100.0 95.0-100.0 N [facility] HospitalTcxelggTSLVZATKO5133-59-74 21:10:00 Test Item Value Reference Range Interpretation Comments POC A pH (test code = POC A pH) 7.37 7.35-7.45 N [facility] HospitalEscfirvWXMGPCEOS5677-31-33 21:10:00 Test Item Value Reference Range Interpretation Comments POC A Source (test code = POC A Source) ART [facility] HospitalDlfeompUNEAKUFVB2416-84-56 21:10:00 Test Item Value Reference Range Interpretation Comments POC A Glu (test code = POC A Glu) 152 70-99 H [facility] HospitalIgmjghxDXTBTPZFR8931-48-99 21:10:00 Test Item Value Reference Range Interpretation Comments POC A Ca Ion (test code = POC A Ca Ion) 1.54 1.05-1.25 H [facility] HospitalHpgsbfyRGRMEUPSN4664-36-67 21:10:00 Test Item Value Reference Range Interpretation Comments POC A PO2 (test code = POC A PO2) 312 80-100 H [facility] HospitalHnzlsgwJOAUPAYZX5062-36-24 21:10:00 Test Item Value Reference Range Interpretation Comments POC A PCO2 (test code = POC A PCO2) 49 35-45 H [facility] HospitalLpsiewyWNCVTQRSB4207-78-55 21:10:00 Test Item Value Reference Range Interpretation Comments POC A HCO3 (test code = POC A HCO3) 28 22-26 H [facility] HospitalFyithgnOOIDSXKUY5300-54-39 21:10:00 Test Item Value Reference Range Interpretation Comments POC A Temp (test code = POC A Temp) 37.0 [facility] HospitalNbsragzMXDZMSHZU6797-24-64 21:10:00 Test Item Value Reference Range Interpretation Comments POC A Hct (test code = POC A Hct) 25.0 36.0-48.0 L [facility] HospitalXthnyhuQVSRKFQMR4158-51-84 21:10:00 Test Item Value Reference Range Interpretation Comments POC A Na (test code = POC A Na) 138 135-145 N [facility] HospitalUbrnuxxCPHJTOEZC3370-00-20 21:10:00 Test Item Value Reference Range Interpretation Comments POC A K (test code = POC A K) 4.0 3.5-5.1 N [facility] HospitalDnvkihxELDQREWFR3348-46-32 21:10:00 Test Item Value Reference Range Interpretation Comments POC A BE (test code = 3 See_Comment H [Auto mated message] The POC A BE) system which ge nerated this result transmit matteo reference range : <=2. The reference range was not used to interpr et this result as miesha l/abnormal. [facility] HospitalHtqsoohZRIQRHGHG4950-81-83 21:10:00 Test Item Value Reference Range Interpretation Comments POC A O2 Sat (test code = POC A O2 Sat) 100.0 95.0-100.0 N [facility] HospitalNczaobbNVZAADTOX9839-23-62 21:10:00 Test Item Value Reference Range Interpretation Comments POC A pH (test code = POC A pH) 7.37 7.35-7.45 N [facility] HospitalVinatniHKPHPUWQC2647-12-33 21:10:00 Test Item Value Reference Range Interpretation Comments POC A Source (test code = POC A Source) ART [facility] HospitalHjoisqoOQNFWRXEE8193-48-56 21:10:00 Test Item Value Reference Range Interpretation Comments POC A Glu (test code = POC A Glu) 152 70-99 [facility]DciwdftTXLNLADAJ6359-15-33 21:10:00 Test Item Value Reference Range Interpretation Comments POC A Ca Ion (test code = POC A Ca Ion) 1.54 1.05-1.25 [facility] HospitalSqftwkiNGUYXQPLE4565-39-00 21:10:00 Test Item Value Reference Range Interpretation Comments POC A PO2 (test code = POC A PO2) 312 80-100 [facility] HospitalGnhwgweUBQGJJGMQ1590-02-57 21:10:00 Test Item Value Reference Range Interpretation Comments POC A PCO2 (test code = POC A PCO2) 49 35-45 H [facility] HospitalGveeqywNBINTEPNV4919-33-17 21:10:00 Test Item Value Reference Range Interpretation Comments POC A HCO3 (test code = POC A HCO3) 28 22-26 H [facility] HospitalPjphpkdEWMESFSMF5642-36-99 21:10:00 Test Item Value Reference Range Interpretation Comments POC A Temp (test code = POC A Temp) 37.0 [facility] HospitalLczuncwTSKASEQIX7049-16-73 21:10:00 Test Item Value Reference Range Interpretation Comments POC A Hct (test code = POC A Hct) 25.0 36.0-48.0 L [facility] HospitalBxcfdraRSMMTIIKG6705-34-26 21:10:00 Test Item Value Reference Range Interpretation Comments POC A Na (test code = POC A Na) 138 135-145 N [facility] HospitalCegoaxtETIHFDVKL1232-58-49 21:10:00 Test Item Value Reference Range Interpretation Comments POC A K (test code = POC A K) 4.0 3.5-5.1 N [facility] HospitalDendtcfKURPFXKKA4308-59-36 21:10:00 Test Item Value Reference Range Interpretation Comments POC A BE (test code = 3 See_Comment H [Auto mated message] The POC A BE) system which ge nerated this result transmit matteo reference range : <=2. The reference range was not used to interpr et this result as miesha l/abnormal. [facility] HospitalNoywpnoIFIFGUVAF1507-48-19 21:10:00 Test Item Value Reference Range Interpretation Comments POC A O2 Sat (test code = POC A O2 Sat) 100.0 95.0-100.0 N [facility] HospitalGzuifqdLUGSIOJMR1539-47-84 21:10:00 Test Item Value Reference Range Interpretation Comments POC A pH (test code = POC A pH) 7.37 7.35-7.45 N [facility] HospitalPfoebxqYMEGVPXLY9414-01-36 21:10:00 Test Item Value Reference Range Interpretation Comments POC A Source (test code = POC A Source) ART [facility] HospitalProqulbEVPOQIPEA1172-92-25 21:10:00 Test Item Value Reference Range Interpretation Comments POC A Glu (test code = POC A Glu) 152 70-99 H [facility] HospitalKbijiolDBGKWJBNN8716-71-13 21:10:00 Test Item Value Reference Range Interpretation Comments POC A Ca Ion (test code = POC A Ca Ion) 1.54 1.05-1.25 H [facility] HospitalIrykufsTAUHUTDCA9259-82-42 21:10:00 Test Item Value Reference Range Interpretation Comments POC A PO2 (test code = POC A PO2) 312 80-100 H [facility] HospitalBgmxgobCGLQIWLFG8366-31-35 21:10:00 Test Item Value Reference Range Interpretation Comments POC A PCO2 (test code = POC A PCO2) 49 35-45 H [facility] HospitalEpqdebxYJKGTFNUE4892-73-91 21:10:00 Test Item Value Reference Range Interpretation Comments POC A HCO3 (test code = POC A HCO3) 28 22-26 H [facility] HospitalPlroqdxDJHUXDWTF4389-02-21 21:10:00 Test Item Value Reference Range Interpretation Comments POC A Temp (test code = POC A Temp) 37.0 [facility]EnpkyovLCPTFZZWQ1441-75-50 21:10:00 Test Item Value Reference Range Interpretation Comments POC A Hct (test code = POC A Hct) 25.0 36.0-48.0 L [facility] HospitalIqqyzbbBTXMCBCDY4265-94-03 21:10:00 Test Item Value Reference Range Interpretation Comments POC A Na (test code = POC A Na) 138 135-145 N [facility] HospitalBsmionvZKXKYJPWO1510-87-13 21:10:00 Test Item Value Reference Range Interpretation Comments POC A K (test code = POC A K) 4.0 3.5-5.1 N [facility] HospitalUvbimdsNUPVORCAL0415-21-61 21:10:00 Test Item Value Reference Range Interpretation Comments POC A BE (test code = 3 See_Comment H [Auto mated message] The POC A BE) system which ge nerated this result transmit matteo reference range : <=2. The reference range was not used to interpr et this result as miesha l/abnormal. [facility] HospitalXlevdclFHCOKFYAJ5094-65-74 21:10:00 Test Item Value Reference Range Interpretation Comments POC A O2 Sat (test code = POC A O2 Sat) 100.0 95.0-100.0 N [facility] HospitalQvoayvgVPLXDFGNH5400-46-61 21:10:00 Test Item Value Reference Range Interpretation Comments POC A pH (test code = POC A pH) 7.37 7.35-7.45 N [facility] HospitalNjmusaqHUOMAVLTO5650-64-29 21:10:00 Test Item Value Reference Range Interpretation Comments POC A Source (test code = POC A Source) ART [facility] [employer] [id number] 21:07:00 Test Item Value Reference Range Interpretation Comments FFP product (test code Product available N = FFP product) (02/21/2013 16:07:00) [facility] [employer] [id number] 21:07:00 Test Item Value Reference Range Interpretation Comments FFP product (test code Product available N = FFP product) (02/21/2013 16:07:00) [facility] [id number] 21:07:00 Test Item Value Reference Range Interpretation Comments FFP product (test code Product available N = FFP product) (02/21/2013 16:07:00) [facility] [id number] 21:07:00 Test Item Value Reference Range Interpretation Comments FFP product (test code Product available N = FFP product) (02/21/2013 16:07:00) [facility] [id number] 21:07:00 Test Item Value Reference Range Interpretation Comments FFP product (test code Product available N = FFP product) (02/21/2013 16:07:00) [facility] [id number] 21:07:00 Test Item Value Reference Range Interpretation Comments FFP product (test code Product available N = FFP product) (02/21/2013 16:07:00) [facility] [id number] 21:05:00 Test Item Value Reference Range Interpretation Comments Platelet product (test Product available N code = Platelet (02/21/2013 16:05:00) product) [facility] [id number] 21:05:00 Test Item Value Reference Range Interpretation Comments Platelet product (test Product available N code = Platelet (02/21/2013 16:05:00) product) [facility] [id number] 21:05:00 Test Item Value Reference Range Interpretation Comments Platelet product (test Product available N code = Platelet (02/21/2013 16:05:00) product) [facility] [id number] 21:05:00 Test Item Value Reference Range Interpretation Comments Platelet product (test Product available N code = Platelet (02/21/2013 16:05:00) product) [facility] [id number] 21:05:00 Test Item Value Reference Range Interpretation Comments Platelet product (test Product available N code = Platelet (02/21/2013 16:05:00) product) [facility] [id number] 21:05:00 Test Item Value Reference Range Interpretation Comments Platelet product (test Product available N code = Platelet (02/21/2013 16:05:00) product) [facility]MlbobgdQXKHZRMMH6059-17-31 20:52:00 Test Item Value Reference Range Interpretation Comments POC A PO2 (test code = POC A PO2) 362 80-100 H [facility] HospitalTmgojjlFCIIDKINR6108-43-89 20:52:00 Test Item Value Reference Range Interpretation Comments POC A pH (test code = POC A pH) 7.40 7.35-7.45 N [facility] HospitalUfndbkqIPJPXXUEN4095-13-48 20:52:00 Test Item Value Reference Range Interpretation Comments POC A BE (test code = 3 See_Comment H [Auto mated message] The POC A BE) system which ge nerated this result transmit matteo reference range : <=2. The reference range was not used to interpr et this result as miesha l/abnormal. [facility] HospitalVulxycmLEDJKJNYM2473-22-82 20:52:00 Test Item Value Reference Range Interpretation Comments POC A PCO2 (test code = POC A PCO2) 45 35-45 N [facility] HospitalRlcvcuoEKDLWGLOR1105-52-39 20:52:00 Test Item Value Reference Range Interpretation Comments POC A HCO3 (test code = POC A HCO3) 28 22-26 H [facility] HospitalGwosaauLQJDRMOPZ4447-89-14 20:52:00 Test Item Value Reference Range Interpretation Comments POC A Hct (test code = POC A Hct) 24.0 36.0-48.0 L [facility] HospitalTktqqzkVZMQDRFUN4495-59-39 20:52:00 Test Item Value Reference Range Interpretation Comments POC A Na (test code = POC A Na) 139 135-145 N [facility] HospitalCtxcmizJDXVJANEF4504-77-29 20:52:00 Test Item Value Reference Range Interpretation Comments POC A Temp (test code = POC A Temp) 37.0 [facility] HospitalSfgcxbnSNLWQCJTA5717-19-08 20:52:00 Test Item Value Reference Range Interpretation Comments POC A O2 Sat (test code = POC A O2 Sat) 100.0 95.0-100.0 N [facility] HospitalPempiwxSFAWRWRLM1140-60-43 20:52:00 Test Item Value Reference Range Interpretation Comments POC A Source (test code = POC A Source) ART [facility] HospitalHlvazbvJLYQGBXRB8083-03-21 20:52:00 Test Item Value Reference Range Interpretation Comments POC A K (test code = POC A K) 3.8 3.5-5.1 N [facility] HospitalDeoscdlEGANFWGAM4779-75-58 20:52:00 Test Item Value Reference Range Interpretation Comments POC A Ca Ion (test code = POC A Ca Ion) 0.97 1.05-1.25 L [facility] HospitalPcpsqpkSKNUYKGMG8823-80-36 20:52:00 Test Item Value Reference Range Interpretation Comments POC A Glu (test code = POC A Glu) 150 70-99 H [facility] HospitalJflaskkFDIOGFUCU1184-79-47 20:52:00 Test Item Value Reference Range Interpretation Comments POC A PO2 (test code = POC A PO2) 362 80-100 H [facility] HospitalLeplhxmJTTQZRPVT6770-69-45 20:52:00 Test Item Value Reference Range Interpretation Comments POC A pH (test code = POC A pH) 7.40 7.35-7.45 N [facility] HospitalRpoipelHZHBCWXFB1164-72-83 20:52:00 Test Item Value Reference Range Interpretation Comments POC A BE (test code = 3 See_Comment H [Auto mated message] The POC A BE) system which ge nerated this result transmit matteo reference range : <=2. The reference range was not used to interpr et this result as miesha l/abnormal. [facility] HospitalHrncowoICFLGGESZ4010-10-20 20:52:00 Test Item Value Reference Range Interpretation Comments POC A PCO2 (test code = POC A PCO2) 45 35-45 N [facility] HospitalKjnhjcxDYLRYGEAN0195-25-51 20:52:00 Test Item Value Reference Range Interpretation Comments POC A HCO3 (test code = POC A HCO3) 28 22-26 H [facility] HospitalTxiixjaYRPLMLCJG1982-69-51 20:52:00 Test Item Value Reference Range Interpretation Comments POC A Hct (test code = POC A Hct) 24.0 36.0-48.0 L [facility] HospitalZtjgvblSPYBBRWYJ9415-76-73 20:52:00 Test Item Value Reference Range Interpretation Comments POC A Na (test code = POC A Na) 139 135-145 N [facility] HospitalEkolmakEDRXUNVIB9812-61-44 20:52:00 Test Item Value Reference Range Interpretation Comments POC A Temp (test code = POC A Temp) 37.0 [facility] HospitalYkdfquuIIAYNQTEG4679-96-85 20:52:00 Test Item Value Reference Range Interpretation Comments POC A O2 Sat (test code = POC A O2 Sat) 100.0 95.0-100.0 N [facility] HospitalDqenbieNLUSXLXJE0459-37-76 20:52:00 Test Item Value Reference Range Interpretation Comments POC A Source (test code = POC A Source) ART [facility] HospitalEhluwfgVFHODFRCT7902-35-16 20:52:00 Test Item Value Reference Range Interpretation Comments POC A K (test code = POC A K) 3.8 3.5-5.1 N [facility] HospitalQnxgjbbOMLEEVYGX7628-41-47 20:52:00 Test Item Value Reference Range Interpretation Comments POC A Ca Ion (test code = POC A Ca Ion) 0.97 1.05-1.25 L [facility] HospitalUffvkgtZRIFACROK0770-49-40 20:52:00 Test Item Value Reference Range Interpretation Comments POC A Glu (test code = POC A Glu) 150 70-99 H [facility] HospitalQtbovbaFYOKUOPKG4696-98-63 20:52:00 Test Item Value Reference Range Interpretation Comments POC A PO2 (test code = POC A PO2) 362 80-100 H [facility] HospitalEbzanxbMGDJOPDJS4728-99-51 20:52:00 Test Item Value Reference Range Interpretation Comments POC A pH (test code = POC A pH) 7.40 7.35-7.45 N [facility] HospitalUxrsfwoSKBIUZVFM8378-58-12 20:52:00 Test Item Value Reference Range Interpretation Comments POC A BE (test code = 3 See_Comment H [Auto mated message] The POC A BE) system which ge nerated this result transmit matteo reference range : <=2. The reference range was not used to interpr et this result as miesha l/abnormal. [facility] HospitalWdidntdKMZAJQJFQ3677-96-71 20:52:00 Test Item Value Reference Range Interpretation Comments POC A PCO2 (test code = POC A PCO2) 45 35-45 N [facility] HospitalDitrgqxHVMIKRZEU2188-71-63 20:52:00 Test Item Value Reference Range Interpretation Comments POC A HCO3 (test code = POC A HCO3) 28 22-26 H [facility] HospitalRmyfrniAECDEPUJL3310-89-53 20:52:00 Test Item Value Reference Range Interpretation Comments POC A Hct (test code = POC A Hct) 24.0 36.0-48.0 L [facility] HospitalZckufxzHALLBTQSO7759-73-75 20:52:00 Test Item Value Reference Range Interpretation Comments POC A Na (test code = POC A Na) 139 135-145 N [facility] HospitalGdnjddqGUCUJZJDU3579-54-94 20:52:00 Test Item Value Reference Range Interpretation Comments POC A Temp (test code = POC A Temp) 37.0 [facility] HospitalOfgcqahXAEOYFVLE4620-13-59 20:52:00 Test Item Value Reference Range Interpretation Comments POC A O2 Sat (test code = POC A O2 Sat) 100.0 95.0-100.0 N [facility] HospitalNslfftgLBNYVJLQH3997-35-59 20:52:00 Test Item Value Reference Range Interpretation Comments POC A Source (test code = POC A Source) ART [facility] HospitalXkitmuqZEPZKMDXX3451-44-61 20:52:00 Test Item Value Reference Range Interpretation Comments POC A K (test code = POC A K) 3.8 3.5-5.1 N [facility] HospitalTcideakTCUDRBIDS0640-76-38 20:52:00 Test Item Value Reference Range Interpretation Comments POC A Ca Ion (test code = POC A Ca Ion) 0.97 1.05-1.25 L [facility] HospitalAoymgsxDRIJMANKX3473-94-77 20:52:00 Test Item Value Reference Range Interpretation Comments POC A Glu (test code = POC A Glu) 150 70-99 H [facility] HospitalAfopkchQBYFAMXXD8547-49-31 20:52:00 Test Item Value Reference Range Interpretation Comments POC A PO2 (test code = POC A PO2) 362 80-100 H [facility] HospitalFsvaoitUHMSDWVRS5908-91-94 20:52:00 Test Item Value Reference Range Interpretation Comments POC A pH (test code = POC A pH) 7.40 7.35-7.45 N [facility] HospitalJqgdddwEPDJDYBPG1078-20-44 20:52:00 Test Item Value Reference Range Interpretation Comments POC A BE (test code = 3 See_Comment H [Auto mated message] The POC A BE) system which ge nerated this result transmit matteo reference range : <=2. The reference range was not used to interpr et this result as miesha l/abnormal. [facility] HospitalMtlbtdbGKZEQSCQA4892-56-43 20:52:00 Test Item Value Reference Range Interpretation Comments POC A PCO2 (test code = POC A PCO2) 45 35-45 N [facility] HospitalKcuiiprLZWTFITJQ6130-59-72 20:52:00 Test Item Value Reference Range Interpretation Comments POC A HCO3 (test code = POC A HCO3) 28 22-26 H [facility] HospitalHuccaxvWPHJYSHFH0412-81-76 20:52:00 Test Item Value Reference Range Interpretation Comments POC A Hct (test code = POC A Hct) 24.0 36.0-48.0 L [facility] HospitalPybdobmFKGSEYXJA4169-07-97 20:52:00 Test Item Value Reference Range Interpretation Comments POC A Na (test code = POC A Na) 139 135-145 N [facility] HospitalNknwcstMYZQLDSON0678-81-65 20:52:00 Test Item Value Reference Range Interpretation Comments POC A Temp (test code = POC A Temp) 37.0 [facility] HospitalVuutoxyELNMXJXLD6419-61-54 20:52:00 Test Item Value Reference Range Interpretation Comments POC A O2 Sat (test code = POC A O2 Sat) 100.0 95.0-100.0 N [facility] HospitalOlxbrgcVBDAVQQCE5475-76-75 20:52:00 Test Item Value Reference Range Interpretation Comments POC A Source (test code = POC A Source) ART [facility] HospitalSyzitqyDSJDWWMYQ0140-35-58 20:52:00 Test Item Value Reference Range Interpretation Comments POC A K (test code = POC A K) 3.8 3.5-5.1 N [facility] HospitalUmxyoqsYXVKNXGOY4235-84-80 20:52:00 Test Item Value Reference Range Interpretation Comments POC A Ca Ion (test code = POC A Ca Ion) 0.97 1.05-1.25 L [facility] HospitalSqcfhqvLBNAUXRVT3740-50-13 20:52:00 Test Item Value Reference Range Interpretation Comments POC A Glu (test code = POC A Glu) 150 70-99 H [facility] HospitalVbksqfyITFGXCPAY8894-32-86 20:52:00 Test Item Value Reference Range Interpretation Comments POC A PO2 (test code = POC A PO2) 362 80-100 H [facility] HospitalSkfeleqOUYUIXFQD5219-64-66 20:52:00 Test Item Value Reference Range Interpretation Comments POC A pH (test code = POC A pH) 7.40 7.35-7.45 N [facility] HospitalEyflqrmUWBKFDAHC0550-15-20 20:52:00 Test Item Value Reference Range Interpretation Comments POC A BE (test code = 3 See_Comment H [Auto mated message] The POC A BE) system which ge nerated this result transmit matteo reference range : <=2. The reference range was not used to interpr et this result as miesha l/abnormal. [facility] HospitalKjbpzcqGQGXMAFIJ2523-51-38 20:52:00 Test Item Value Reference Range Interpretation Comments POC A PCO2 (test code = POC A PCO2) 45 35-45 N [facility] HospitalFtztpkkGNJJFFYHL3555-80-80 20:52:00 Test Item Value Reference Range Interpretation Comments POC A HCO3 (test code = POC A HCO3) 28 22-26 H [facility] HospitalJrlrqphTROVKLKZL2328-15-87 20:52:00 Test Item Value Reference Range Interpretation Comments POC A Hct (test code = POC A Hct) 24.0 36.0-48.0 L [facility] HospitalDidkpctNLCUBXUNQ1254-32-99 20:52:00 Test Item Value Reference Range Interpretation Comments POC A Na (test code = POC A Na) 139 135-145 N [facility] HospitalVihwikoLCAZOZCDH2447-22-53 20:52:00 Test Item Value Reference Range Interpretation Comments POC A Temp (test code = POC A Temp) 37.0 [facility] HospitalFiuliisPYVYHLNRU2436-78-75 20:52:00 Test Item Value Reference Range Interpretation Comments POC A O2 Sat (test code = POC A O2 Sat) 100.0 95.0-100.0 N [facility] HospitalKqczaewKUVZGBBWH9140-85-46 20:52:00 Test Item Value Reference Range Interpretation Comments POC A Source (test code = POC A Source) ART [facility] HospitalXfljqqeLHXXKODMX6169-04-65 20:52:00 Test Item Value Reference Range Interpretation Comments POC A K (test code = POC A K) 3.8 3.5-5.1 N [facility] HospitalFscevpeSKYVICCZW3672-95-79 20:52:00 Test Item Value Reference Range Interpretation Comments POC A Ca Ion (test code = POC A Ca Ion) 0.97 1.05-1.25 L [facility] HospitalFwjldgxOBKLAUFNN7743-19-85 20:52:00 Test Item Value Reference Range Interpretation Comments POC A Glu (test code = POC A Glu) 150 70-99 H [facility] HospitalSwdwzvxMXASKUDLL6617-34-30 20:52:00 Test Item Value Reference Range Interpretation Comments POC A PO2 (test code = POC A PO2) 362 80-100 H [facility] HospitalZelgjcyZTBWZXEQL0582-60-75 20:52:00 Test Item Value Reference Range Interpretation Comments POC A pH (test code = POC A pH) 7.40 7.35-7.45 N [facility] HospitalKewrhguUCTVZUAQO1169-56-89 20:52:00 Test Item Value Reference Range Interpretation Comments POC A BE (test code = 3 See_Comment H [Auto mated message] The POC A BE) system which ge nerated this result transmit matteo reference range : <=2. The reference range was not used to interpr et this result as miesha l/abnormal. [facility] HospitalAewwswyQNMNPJSDF2190-65-41 20:52:00 Test Item Value Reference Range Interpretation Comments POC A PCO2 (test code = POC A PCO2) 45 35-45 N [facility] HospitalLtuxuakXRISDEWNA7199-18-41 20:52:00 Test Item Value Reference Range Interpretation Comments POC A HCO3 (test code = POC A HCO3) 28 22-26 H [facility] HospitalDlgybbvHFURBPZUB6618-41-47 20:52:00 Test Item Value Reference Range Interpretation Comments POC A Hct (test code = POC A Hct) 24.0 36.0-48.0 L [facility] HospitalIyehnbsNGVBDELAR6880-66-27 20:52:00 Test Item Value Reference Range Interpretation Comments POC A Na (test code = POC A Na) 139 135-145 N [facility] HospitalKspmlrySIGTUEVPQ6186-66-05 20:52:00 Test Item Value Reference Range Interpretation Comments POC A Temp (test code = POC A Temp) 37.0 [facility] HospitalDjvuhbmPXUNLAHMX8505-13-96 20:52:00 Test Item Value Reference Range Interpretation Comments POC A O2 Sat (test code = POC A O2 Sat) 100.0 95.0-100.0 N [facility] HospitalJiqqryxZTJVYYMOH4348-66-35 20:52:00 Test Item Value Reference Range Interpretation Comments POC A Source (test code = POC A Source) ART [facility] HospitalFicaxdeXVLKJYMNJ9279-29-89 20:52:00 Test Item Value Reference Range Interpretation Comments POC A K (test code = POC A K) 3.8 3.5-5.1 N [facility] HospitalBkdqgvnXSBSJCUKB8200-90-49 20:52:00 Test Item Value Reference Range Interpretation Comments POC A Ca Ion (test code = POC A Ca Ion) 0.97 1.05-1.25 L [facility] HospitalQfzeysoSWLYTZRLA7769-63-24 20:52:00 Test Item Value Reference Range Interpretation Comments POC A Glu (test code = POC A Glu) 150 70-99 [facility] VUZYXCW3622-40-39 20:20:00 Test Item Value Reference Range Interpretation Comments FFP product (test code Product available N = FFP product) (02/21/2013 15:20:00) [facility] [id number] 20:20:00 Test Item Value Reference Range Interpretation Comments Platelet product (test Product available N code = Platelet (02/21/2013 15:20:00) product) [facility] [id number] 20:20:00 Test Item Value Reference Range Interpretation Comments FFP product (test code Product available N = FFP product) (02/21/2013 15:20:00) [facility] [id number] 20:20:00 Test Item Value Reference Range Interpretation Comments Platelet product (test Product available N code = Platelet (02/21/2013 15:20:00) product) [facility] [id number] 20:20:00 Test Item Value Reference Range Interpretation Comments FFP product (test code Product available N = FFP product) (02/21/2013 15:20:00) [facility] [id number] 20:20:00 Test Item Value Reference Range Interpretation Comments Platelet product (test Product available N code = Platelet (02/21/2013 15:20:00) product) [facility] [id number] 20:20:00 Test Item Value Reference Range Interpretation Comments FFP product (test code Product available N = FFP product) (02/21/2013 15:20:00) [facility] [id number] 20:20:00 Test Item Value Reference Range Interpretation Comments Platelet product (test Product available N code = Platelet (02/21/2013 15:20:00) product) [facility] [id number] 20:20:00 Test Item Value Reference Range Interpretation Comments FFP product (test code Product available N = FFP product) (02/21/2013 15:20:00) [facility] [id number] 20:20:00 Test Item Value Reference Range Interpretation Comments Platelet product (test Product available N code = Platelet (02/21/2013 15:20:00) product) [facility] [id number] 20:20:00 Test Item Value Reference Range Interpretation Comments FFP product (test code Product available N = FFP product) (02/21/2013 15:20:00) [facility] [id number] 20:20:00 Test Item Value Reference Range Interpretation Comments Platelet product (test Product available N code = Platelet (02/21/2013 15:20:00) product) [facility] [id number] 20:06:00 Test Item Value Reference Range Interpretation Comments Platelet product (test Product available N code = Platelet (02/21/2013 15:06:00) product) [facility] [id number] 20:06:00 Test Item Value Reference Range Interpretation Comments Platelet product (test Product available N code = Platelet (02/21/2013 15:06:00) product) [facility] [id number] 20:06:00 Test Item Value Reference Range Interpretation Comments Platelet product (test Product available N code = Platelet (02/21/2013 15:06:00) product) [facility] [id number] 20:06:00 Test Item Value Reference Range Interpretation Comments Platelet product (test Product available N code = Platelet (02/21/2013 15:06:00) product) [facility] [id number] 20:06:00 Test Item Value Reference Range Interpretation Comments Platelet product (test Product available N code = Platelet (02/21/2013 15:06:00) product) [facility] [id number] 20:06:00 Test Item Value Reference Range Interpretation Comments Platelet product (test Product available N code = Platelet (02/21/2013 15:06:00) product) [facility] [id number] 15:46:00 Test Item Value Reference Range Interpretation Comments FFP product (test code Product available N = FFP product) (02/21/2013 10:46:00) [facility] [id number] 15:46:00 Test Item Value Reference Range Interpretation Comments FFP product (test code Product available N = FFP product) (02/21/2013 10:46:00) [facility] [id number] 15:46:00 Test Item Value Reference Range Interpretation Comments FFP product (test code Product available N = FFP product) (02/21/2013 10:46:00) [facility] [id number] 15:46:00 Test Item Value Reference Range Interpretation Comments FFP product (test code Product available N = FFP product) (02/21/2013 10:46:00) [facility] [id number] 15:46:00 Test Item Value Reference Range Interpretation Comments FFP product (test code Product available N = FFP product) (02/21/2013 10:46:00) [facility] [id number] 15:46:00 Test Item Value Reference Range Interpretation Comments FFP product (test code Product available N = FFP product) (02/21/2013 10:46:00) [id number] 19:43:34 Test Item Value Reference Range Interpretation Comments UA Urobilinogen (test code = UA no gt 0.1-1.0 Urobilinogen) [facility] [id number] 19:43:34 Test Item Value Reference Range Interpretation Comments UA Leuk Est (test Negative (02/20/2013 N code = UA Leuk Est) 14:43:34) [facility]VsdfdvrCQTYNZZYZX1512-21-14 19:43:34 Test Item Value Reference Range Interpretation Comments UA Nitrite (test code Negative (02/20/2013 N = UA Nitrite) 14:43:34) [facility] HospitalIrsqmqzFTKZKLABSB3536-30-01 19:43:34 Test Item Value Reference Range Interpretation Comments UA Glucose (test code Negative mg/dL = UA Glucose) *NA*(02/20/2013 14:43:34) [facility] Cent[id number] 19:43:34 Test Item Value Reference Range Interpretation Comments UA Protein (test code Negative mg/dL N = UA Protein) (02/20/2013 14:43:34) [facility] Hospit[id number] 19:43:34 Test Item Value Reference Range Interpretation Comments UA Blood (test code = Trace *ABN*(02/20/2013 A UA Blood) 14:43:34) [facility] CenterDgmndnlSOYLTZWPRV6082-67-13 19:43:34 Test Item Value Reference Range Interpretation Comments UA Bili (test code = Negative *NA*(02/20/2013 UA Bili) 14:43:34) [facility] Cent[id number] 19:43:34 Test Item Value Reference Range Interpretation Comments UA Spec Grav (test code = UA Spec Grav) 1.[address] [facility] Cent[id number] 19:43:34 Test Item Value Reference Range Interpretation Comments UA Turbidity (test code = Clear (02/20/2013 N UA Turbidity) 14:43:34) [facility] CenterYgizsqaXNAFHSKWQD8850-21-38 19:43:34 Test Item Value Reference Range Interpretation Comments UA pH (test code = UA pH) 6.0 5.0-8.[address] [facility] CenterRelsaxxKKFKBWSXGX7520-79-42 19:43:34 Test Item Value Reference Range Interpretation Comments UA Ketones (test code Negative mg/dL = UA Ketones) *NA*(02/20/2013 14:43:34) [facility] Cent[id number] 19:43:34 Test Item Value Reference Range Interpretation Comments UA RBC (test code = 1 See_Comment N [Automa matteo message] The UA RBC) system which ge nerated this result transmit matteo reference range : <=2. The reference range was not used to interpr et this result as miesha l/abnormal. [facility] CenterYqiesiaBLEATQIEXW5479-95-03 19:43:34 Test Item Value Reference Range Interpretation Comments UA Sq Epi (test code = Few /LPF UA Sq Epi) *NA*(02/20/2013 14:43:34) [facility] CenterPcpzwrlQLAETVGOMF7643-17-93 19:43:34 Test Item Value Reference Range Interpretation Comments UA Bacteria (test code Occasional /HPF = UA Bacteria) *NA*(02/20/2013 14:43:34) [facility] CenterMqvjqbsXUTGYJNYGD8276-29-23 19:43:34 Test Item Value Reference Range Interpretation Comments UA Color (test code = Colorless UA Color) *NA*(02/20/2013 14:43:34) [facility] Cent[id number] 19:43:34 Test Item Value Reference Range Interpretation Comments UA Urobilinogen (test code = UA no gt 0.1-1.0 Urobilinogen) [facility] Cent[id number] 19:43:34 Test Item Value Reference Range Interpretation Comments UA Leuk Est (test Negative (02/20/2013 N code = UA Leuk Est) 14:43:34) [facility] CenterIpxsblhPTSOZOTGJY2850-91-05 19:43:34 Test Item Value Reference Range Interpretation Comments UA Nitrite (test code Negative (02/20/2013 N = UA Nitrite) 14:43:34) [facility] CenterSrzudkkDJCREKQMSM3744-14-18 19:43:34 Test Item Value Reference Range Interpretation Comments UA Glucose (test code Negative mg/dL = UA Glucose) *NA*(02/20/2013 14:43:34) [facility] Cent[id number] 19:43:34 Test Item Value Reference Range Interpretation Comments UA Protein (test code Negative mg/dL N = UA Protein) (02/20/2013 14:43:34) [facility] CenterYjgquyaFGNLSHTXNT2623-97-71 19:43:34 Test Item Value Reference Range Interpretation Comments UA Blood (test code = Trace *ABN*(02/20/2013 A UA Blood) 14:43:34) [facility] CenterJuevnxnNCQDDCOINQ6936-63-48 19:43:34 Test Item Value Reference Range Interpretation Comments UA Bili (test code = Negative *NA*(02/20/2013 UA Bili) 14:43:34) [facility] CenterKfahbdaSIATLAOWZH9946-59-36 19:43:34 Test Item Value Reference Range Interpretation Comments UA Spec Grav (test code = UA Spec Grav) 1.[address] [facility] [facility] CenterBzucuoaCUAXODMZCH2264-01-11 19:43:34 Test Item Value Reference Range Interpretation Comments UA Turbidity (test code = Clear (02/20/2013 N UA Turbidity) 14:43:34) [facility] CenterYehtegpGIYFDHSEVR6708-95-99 19:43:34 Test Item Value Reference Range Interpretation Comments UA pH (test code = UA pH) 6.0 5.0-8.[address] CenterAfbolfsHFZCAAAMAX4280-99-03 19:43:34 Test Item Value Reference Range Interpretation Comments UA Ketones (test code Negative mg/dL = UA Ketones) *NA*(02/20/2013 14:43:34) [facility] CenterZvfanugXQXISCECRE5225-90-66 19:43:34 Test Item Value Reference Range Interpretation Comments UA RBC (test code = 1 See_Comment N [Automa matteo message] The UA RBC) system which ge nerated this result transmit matteo reference range : <=2. The reference range was not used to interpr et this result as miesha l/abnormal. [facility] CenterDyoaagrKOLYNLMNUL2863-63-20 19:43:34 Test Item Value Reference Range Interpretation Comments UA Sq Epi (test code = Few /LPF UA Sq Epi) *NA*(02/20/2013 14:43:34) [facility] CenterKpepeskUDZUZIAZGV8310-12-06 19:43:34 Test Item Value Reference Range Interpretation Comments UA Bacteria (test code Occasional /HPF = UA Bacteria) *NA*(02/20/2013 14:43:34) [facility] CenterFffbpoxVZDKRUEQGS4980-73-11 19:43:34 Test Item Value Reference Range Interpretation Comments UA Color (test code = Colorless UA Color) *NA*(02/20/2013 14:43:34) [facility] CenterResopjxDLQNQYSPKG2745-25-65 19:43:34 Test Item Value Reference Range Interpretation Comments UA Urobilinogen (test code = UA no gt 0.1-1.0 Urobilinogen) [facility] CenterZnfzuijIMHUVQFJVZ1326-17-57 19:43:34 Test Item Value Reference Range Interpretation Comments UA Leuk Est (test Negative (02/20/2013 N code = UA Leuk Est) 14:43:34) [facility] CenterCsqojucLVRSFMAGTA1388-73-91 19:43:34 Test Item Value Reference Range Interpretation Comments UA Nitrite (test code Negative (02/20/2013 N = UA Nitrite) 14:43:34) [facility] CenterJciaikuSUOUCXHGAW2590-06-58 19:43:34 Test Item Value Reference Range Interpretation Comments UA Glucose (test code Negative mg/dL = UA Glucose) *NA*(02/20/2013 14:43:34) [facility] CenterYxhtsykYTFHNQLTVH2955-15-90 19:43:34 Test Item Value Reference Range Interpretation Comments UA Protein (test code Negative mg/dL N = UA Protein) (02/20/2013 14:43:34) [facility] CenterJfdrqxrGLSCFRFAIU8593-40-46 19:43:34 Test Item Value Reference Range Interpretation Comments UA Blood (test code = Trace *ABN*(02/20/2013 A UA Blood) 14:43:34) [facility] Cent[id number] 19:43:34 Test Item Value Reference Range Interpretation Comments UA Bili (test code = Negative *NA*(02/20/2013 UA Bili) 14:43:34) [facility] HospitalIssztxdHTNPOTAJQX8462-33-40 19:43:34 Test Item Value Reference Range Interpretation Comments UA Spec Grav (test code = UA Spec Grav) 1.[address] [facility] CenterZdlwsuaWFOVXPZYMU0144-62-84 19:43:34 Test Item Value Reference Range Interpretation Comments UA Turbidity (test code = Clear (02/20/2013 N UA Turbidity) 14:43:34) [facility] CenterLmuksoyVEDYVNBFXF2063-28-62 19:43:34 Test Item Value Reference Range Interpretation Comments UA pH (test code = UA pH) 6.0 5.0-8.[address] CenterJlkhogjRAQCKYQRDN3375-57-54 19:43:34 Test Item Value Reference Range Interpretation Comments UA Ketones (test code Negative mg/dL = UA Ketones) *NA*(02/20/2013 14:43:34) [facility] CenterTprjewaOGNJWGXCWR6699-99-36 19:43:34 Test Item Value Reference Range Interpretation Comments UA RBC (test code = 1 See_Comment N [Automa matteo message] The UA RBC) system which ge nerated this result transmit matteo reference range : <=2. The reference range was not used to interpr et this result as miesha l/abnormal. [facility] CenterYklfmltBUQPBUNDME6969-65-08 19:43:34 Test Item Value Reference Range Interpretation Comments UA Sq Epi (test code = Few /LPF UA Sq Epi) *NA*(02/20/2013 14:43:34) [facility] CenterEbyhipgGPOYRQTGEM9972-15-17 19:43:34 Test Item Value Reference Range Interpretation Comments UA Bacteria (test code Occasional /HPF = UA Bacteria) *NA*(02/20/2013 14:43:34) [facility] CenterAzfuucrQFQSSUCIYR1536-56-82 19:43:34 Test Item Value Reference Range Interpretation Comments UA Color (test code = Colorless UA Color) *NA*(02/20/2013 14:43:34) [facility] CenterFjszljnGBVHOOMOCP9761-57-81 19:43:34 Test Item Value Reference Range Interpretation Comments UA Urobilinogen (test code = UA no gt 0.1-1.0 Urobilinogen) [facility] HospitalXnbtzbyWZZIVEUNNX0036-94-15 19:43:34 Test Item Value Reference Range Interpretation Comments UA Leuk Est (test Negative (02/20/2013 N code = UA Leuk Est) 14:43:34) [facility] CenterKtlzuafAXVJSTSZRB3181-05-10 19:43:34 Test Item Value Reference Range Interpretation Comments UA Nitrite (test code Negative (02/20/2013 N = UA Nitrite) 14:43:34) [facility] CenterMishidiURKVRPCPWU9327-09-87 19:43:34 Test Item Value Reference Range Interpretation Comments UA Glucose (test code Negative mg/dL = UA Glucose) *NA*(02/20/2013 14:43:34) [facility] CenterTaiegvgFAJDOEYAQN5443-46-57 19:43:34 Test Item Value Reference Range Interpretation Comments UA Protein (test code Negative mg/dL N = UA Protein) (02/20/2013 14:43:34) [facility] CenterQcjpwdhEGKEUOFGJO4411-65-62 19:43:34 Test Item Value Reference Range Interpretation Comments UA Blood (test code = Trace *ABN*(02/20/2013 A UA Blood) 14:43:34) [facility] CenterWvxxodvVDBNYZBWZM7406-71-59 19:43:34 Test Item Value Reference Range Interpretation Comments UA Bili (test code = Negative *NA*(02/20/2013 UA Bili) 14:43:34) [facility] CenterVhppcayKJTSOMABYE9863-36-84 19:43:34 Test Item Value Reference Range Interpretation Comments UA Spec Grav (test code = UA Spec Grav) 1.[address] CenterAdqjpstTEWPIZGUWI0967-95-44 19:43:34 Test Item Value Reference Range Interpretation Comments UA Turbidity (test code = Clear (02/20/2013 N UA Turbidity) 14:43:34) [facility] CenterTkinqbwJBMLKVENCK5358-10-31 19:43:34 Test Item Value Reference Range Interpretation Comments UA pH (test code = UA pH) 6.0 5.0-8.[address] [facility] CenterHqlpmwvJOOKDMSXTS5662-40-32 19:43:34 Test Item Value Reference Range Interpretation Comments UA Ketones (test code Negative mg/dL = UA Ketones) *NA*(02/20/2013 14:43:34) [facility] CenterUcstczaEQJIBUBCSU8627-61-55 19:43:34 Test Item Value Reference Range Interpretation Comments UA RBC (test code = 1 See_Comment N [Automa matteo message] The UA RBC) system which ge nerated this result transmit matteo reference range : <=2. The reference range was not used to interpr et this result as miesha l/abnormal. [facility] CenterTivyzfyHIXDFETAEA3025-45-96 19:43:34 Test Item Value Reference Range Interpretation Comments UA Sq Epi (test code = Few /LPF UA Sq Epi) *NA*(02/20/2013 14:43:34) [facility] CenterRanfpldKARIQIQBGH7114-34-79 19:43:34 Test Item Value Reference Range Interpretation Comments UA Bacteria (test code Occasional /HPF = UA Bacteria) *NA*(02/20/2013 14:43:34) [facility] CenterM[id number] 19:43:34 Test Item Value Reference Range Interpretation Comments UA Color (test code = Colorless UA Color) *NA*(02/20/2013 14:43:34) [facility] CenterLecrrpjHMDVKTDRCT1728-20-68 19:43:34 Test Item Value Reference Range Interpretation Comments UA Urobilinogen (test code = UA no gt 0.1-1.0 Urobilinogen) [facility] CenterFnnwkomVVBGBPEUUU6822-81-98 19:43:34 Test Item Value Reference Range Interpretation Comments UA Leuk Est (test Negative (02/20/2013 N code = UA Leuk Est) 14:43:34) [facility] CenterIpnbvumADZHYIEDZO2957-56-09 19:43:34 Test Item Value Reference Range Interpretation Comments UA Nitrite (test code Negative (02/20/2013 N = UA Nitrite) 14:43:34) [facility] CenterVhtaqzqWNNVFRQLXV9558-26-46 19:43:34 Test Item Value Reference Range Interpretation Comments UA Glucose (test code Negative mg/dL = UA Glucose) *NA*(02/20/2013 14:43:34) [facility] CenterKkpekdcUNXJRXNLBB1535-14-73 19:43:34 Test Item Value Reference Range Interpretation Comments UA Protein (test code Negative mg/dL N = UA Protein) (02/20/2013 14:43:34) [facility] CenterIddrqorHWRVITLUVE7868-04-12 19:43:34 Test Item Value Reference Range Interpretation Comments UA Blood (test code = Trace *ABN*(02/20/2013 A UA Blood) 14:43:34) [facility] CenterDfanzeaOJEJMLMAMZ5128-40-69 19:43:34 Test Item Value Reference Range Interpretation Comments UA Bili (test code = Negative *NA*(02/20/2013 UA Bili) 14:43:34) [facility] HospitalBkadeiaWTYQSXTRRN9939-38-27 19:43:34 Test Item Value Reference Range Interpretation Comments UA Spec Grav (test code = UA Spec Grav) 1.[address] CenterGuheizbXCJNRJEYXC1229-51-43 19:43:34 Test Item Value Reference Range Interpretation Comments UA Turbidity (test code = Clear (02/20/2013 N UA Turbidity) 14:43:34) [facility] CenterPaolmziUJCBTECVTK9981-38-12 19:43:34 Test Item Value Reference Range Interpretation Comments UA pH (test code = UA pH) 6.0 5.0-8.[address] CenterXsyzahlSSOQPVTQND6198-54-01 19:43:34 Test Item Value Reference Range Interpretation Comments UA Ketones (test code Negative mg/dL = UA Ketones) *NA*(02/20/2013 14:43:34) [facility] CenterVaqkyztCBIQXLDIMV5559-93-82 19:43:34 Test Item Value Reference Range Interpretation Comments UA RBC (test code = 1 See_Comment N [Automa matteo message] The UA RBC) system which ge nerated this result transmit matteo reference range : <=2. The reference range was not used to interpr et this result as miesha l/abnormal. [facility] CenterDbszornQLOFZZPCWR7054-37-37 19:43:34 Test Item Value Reference Range Interpretation Comments UA Sq Epi (test code = Few /LPF UA Sq Epi) *NA*(02/20/2013 14:43:34) [facility] CenterOntycjzIFTZHNSSVC4526-89-58 19:43:34 Test Item Value Reference Range Interpretation Comments UA Bacteria (test code Occasional /HPF = UA Bacteria) *NA*(02/20/2013 14:43:34) [facility] CenterUxlgbkgQJNELRJRJN7677-78-43 19:43:34 Test Item Value Reference Range Interpretation Comments UA Color (test code = Colorless UA Color) *NA*(02/20/2013 14:43:34) [facility] CenterYutakmxEFYCDIVTID4325-60-59 19:43:34 Test Item Value Reference Range Interpretation Comments UA Urobilinogen (test code = UA no gt 0.1-1.0 Urobilinogen) [facility] CenterFejvwsdWLJHOCQFJY3559-03-03 19:43:34 Test Item Value Reference Range Interpretation Comments UA Leuk Est (test Negative (02/20/2013 N code = UA Leuk Est) 14:43:34) [facility] CenterLqdjdlcUPDRLFQUKU3674-29-61 19:43:34 Test Item Value Reference Range Interpretation Comments UA Nitrite (test code Negative (02/20/2013 N = UA Nitrite) 14:43:34) [facility] CenterFuxtdlyTEMZCOAHXB6168-75-39 19:43:34 Test Item Value Reference Range Interpretation Comments UA Glucose (test code Negative mg/dL = UA Glucose) *NA*(02/20/2013 14:43:34) [facility] CenterDoqajhoDNBGYTQBSX3847-88-15 19:43:34 Test Item Value Reference Range Interpretation Comments UA Protein (test code Negative mg/dL N = UA Protein) (02/20/2013 14:43:34) [facility] CenterYnesnwbERIAXXTYKV7626-41-50 19:43:34 Test Item Value Reference Range Interpretation Comments UA Blood (test code = Trace *ABN*(02/20/2013 A UA Blood) 14:43:34) [facility] CenterOmlwnbvPECZSRXRKK1592-49-39 19:43:34 Test Item Value Reference Range Interpretation Comments UA Bili (test code = Negative *NA*(02/20/2013 UA Bili) 14:43:34) [facility] CenterQcellkhJARUJAFILO3881-49-70 19:43:34 Test Item Value Reference Range Interpretation Comments UA Spec Grav (test code = UA Spec Grav) 1.[address] CenterNpjothzAYIJDVSOQI3783-68-89 19:43:34 Test Item Value Reference Range Interpretation Comments UA Turbidity (test code = Clear (02/20/2013 N UA Turbidity) 14:43:34) [facility] CenterGbngxwpJBMEZIQJVW6055-66-04 19:43:34 Test Item Value Reference Range Interpretation Comments UA pH (test code = UA pH) 6.0 5.0-8.[address] [facility] CenterIaalfgnCJFKOXTRQG7939-97-42 19:43:34 Test Item Value Reference Range Interpretation Comments UA Ketones (test code Negative mg/dL = UA Ketones) *NA*(02/20/2013 14:43:34) [facility]AG[facility]ECSP8087[facility]-76 19:43:34 Test Item Value Reference Range Interpretation Comments UA RBC (test code = 1 See_Comment N [Automa matteo message] The UA RBC) system which ge nerated this result transmit matteo reference range : <=2. The reference range was not used to interpr et this result as miesha l/abnormal. [facility] HospitalTzfptrkVCCWXCVDLY3263-63-21 19:43:34 Test Item Value Reference Range Interpretation Comments UA Sq Epi (test code = Few /LPF UA Sq Epi) *NA*(02/20/2013 14:43:34) [facility] HospitalYrwmtoeNKKVQXISLX3008-85-20 19:43:34 Test Item Value Reference Range Interpretation Comments UA Bacteria (test code Occasional /HPF = UA Bacteria) *NA*(02/20/2013 14:43:34) [facility] HospitalFunjvsvGSZPISCXKN2767-17-50 19:43:34 Test Item Value Reference Range Interpretation Comments UA Color (test code = Colorless UA Color) *NA*(02/20/2013 14:43:34) [facility]BA[facility] - TEARTYZY7776-88-36 19:11:48 Test Item Value Reference Range Interpretation Comments MRSA by PCR (test Negative 1(02/20/2013 N code = MRSA by PCR) 14:11:48) [facility] - [id number] 19:11:48 Test Item Value Reference Range Interpretation Comments MRSA by PCR (test Negative 1(02/20/2013 N code = MRSA by PCR) 14:11:48) [facility]BA[facility] - [id number] 19:11:48 Test Item Value Reference Range Interpretation Comments MRSA by PCR (test Negative 1(02/20/2013 N code = MRSA by PCR) 14:11:48) [facility] - [id number] 19:11:48 Test Item Value Reference Range Interpretation Comments MRSA by PCR (test Negative 1(02/20/2013 N code = MRSA by PCR) 14:11:48) [facility]BA[facility] - [id number] 19:11:48 Test Item Value Reference Range Interpretation Comments MRSA by PCR (test Negative 1(02/20/2013 N code = MRSA by PCR) 14:11:48) [facility]BA[facility] - [id number] 19:11:48 Test Item Value Reference Range Interpretation Comments MRSA by PCR (test Negative 1(02/20/2013 N code = MRSA by PCR) 14:11:48) [facility]WuvtdahNAGXKXKLYU2554-87-87 19:11:39 Test Item Value Reference Range Interpretation Comments Plav Effect Plt (test code = Plav 303 Effect Plt) [facility] HospitalAarxzjwBLOAOFYQRC9930-20-15 19:11:39 Test Item Value Reference Range Interpretation Comments Plav Effect Plt (test code = Plav 303 Effect Plt) [facility] HospitalRcvrqevZEMKUORKQZ6427-80-48 19:11:39 Test Item Value Reference Range Interpretation Comments Plav Effect Plt (test code = Plav 303 Effect Plt) [facility] HospitalFimodyeTJGHLLYLAO3092-65-40 19:11:39 Test Item Value Reference Range Interpretation Comments Plav Effect Plt (test code = Plav 303 Effect Plt) [facility] HospitalYriaykdAXAEGSUGHS5388-85-24 19:11:39 Test Item Value Reference Range Interpretation Comments Plav Effect Plt (test code = Plav 303 Effect Plt) [facility] [id number] 19:11:39 Test Item Value Reference Range Interpretation Comments Plav Effect Plt (test code = Plav 303 Effect Plt) [facility] [id number] 19:11:00 Test Item Value Reference Range Interpretation Comments Antibody Scrn (test Negative (02/20/2013 N code = Antibody Scrn) 14:11:00) [facility] [id number] 19:11:00 Test Item Value Reference Range Interpretation Comments ABO/Rh (test code = ABO/Rh) A [id number] 19:11:00 Test Item Value Reference Range Interpretation Comments Macrocyte (test code = 1+ *ABN*(02/20/2013 A Macrocyte) 14:11:00) [facility] [id number] 19:11:00 Test Item Value Reference Range Interpretation Comments Antibody Scrn (test Negative (02/20/2013 N code = Antibody Scrn) 14:11:00) [facility] [id number] 19:11:00 Test Item Value Reference Range Interpretation Comments ABO/Rh (test code = ABO/Rh) A [id number] 19:11:00 Test Item Value Reference Range Interpretation Comments Macrocyte (test code = 1+ *ABN*(02/20/2013 A Macrocyte) 14:11:00) [facility] [id number] 19:11:00 Test Item Value Reference Range Interpretation Comments Antibody Scrn (test Negative (02/20/2013 N code = Antibody Scrn) 14:11:00) [facility] [id number] 19:11:00 Test Item Value Reference Range Interpretation Comments ABO/Rh (test code = ABO/Rh) A [facility]2013-08-27 19:11:00 Test Item Value Reference Range Interpretation Comments Macrocyte (test code = 1+ *ABN*(02/20/2013 A Macrocyte) 14:11:00) [facility] [id number] 19:11:00 Test Item Value Reference Range Interpretation Comments Antibody Scrn (test Negative (02/20/2013 N code = Antibody Scrn) 14:11:00) [facility] [id number] 19:11:00 Test Item Value Reference Range Interpretation Comments ABO/Rh (test code = ABO/Rh) A [facility]2013-08-27 19:11:00 Test Item Value Reference Range Interpretation Comments Macrocyte (test code = 1+ *ABN*(02/20/2013 A Macrocyte) 14:11:00) [facility] [id number] 19:11:00 Test Item Value Reference Range Interpretation Comments Antibody Scrn (test Negative (02/20/2013 N code = Antibody Scrn) 14:11:00) [facility] [id number] 19:11:00 Test Item Value Reference Range Interpretation Comments ABO/Rh (test code = ABO/Rh) A [facility]2013-08-27 19:11:00 Test Item Value Reference Range Interpretation Comments Macrocyte (test code = 1+ *ABN*(02/20/2013 A Macrocyte) 14:11:00) [facility] [id number] 19:11:00 Test Item Value Reference Range Interpretation Comments Antibody Scrn (test Negative (02/20/2013 N code = Antibody Scrn) 14:11:00) [facility] BANK [id number] 19:11:00 Test Item Value Reference Range Interpretation Comments ABO/Rh (test code = ABO/Rh) A [id number] 19:11:00 Test Item Value Reference Range Interpretation Comments Macrocyte (test code = 1+ *ABN*(02/20/2013 A Macrocyte) 14:11:00) [facility]
[2022-08-06] MEDS ORDERED: DICYCLOMINE HCL 20 MG/2 ML AMP IM ONE (12:58)
[2022-08-06] MEDS ORDERED: NA CHLORIDE 0.9% 1,000 ML ONE (12:58)
[2022-08-06 13:12] LABS: Absolute Lymphocytes (CBC) 1.1 K/uL (0.7-4.9); Hematocrit 26.6 % (36.0-45.0); Lymphocytes % 7.4 % (15.3-44.8); MCV 95.6 fL (80-100); MPV 8.1 fL (7.6-11.3); RBC Red Blood Cell Count 2.78 M/uL (3.86-4.86)
[2022-08-06 13:23] LABS: Bilirubin Total 0.4 mg/dL (0.2-1.0); Magnesium 2.4 mg/dL (1.6-2.4); Potassium 3.9 mmol/L (3.5-5.1); Protein, Total 6.6 g/dL (6.4-8.2)
--- NOTE | 2022-08-06 14:07 | RAD REPORT ---
EXAM DESCRIPTION: CTAbdomen Pelvis Wo Contrast - 08/06/2022 1:53 pm CLINICAL HISTORY: diarrhea COMPARISON: Abdomen Pelvis W Contrast dated 07/01/2022 TECHNIQUE: CT of the abdomen and pelvis was performed. All CT scans are performed using dose optimization technique as appropriate and may include automated exposure control or mA/KV adjustment according to patient size. FINDINGS: Lower chest: Right axillofemoral bypass. Right main coronary artery calcifications. Liver: No acute abnormality or suspicious lesions. Biliary: No biliary ductal dilatation. Stomach: No significant focal abnormality. Duodenum: No significant focal abnormality. Pancreas: No significant abnormality. Spleen: No significant abnormality. Adrenal: No suspicious lesions. Kidney/ureter: Bilateral perinephric stranding which is new from prior. Mild hydronephrosis bilateral ly. Right upper and lower pole renal cysts. Other too small to characterize renal lesions noted. Retroperitoneum: No retroperitoneal adenopathy. Vascular: No aneurysm. Severe atherosclerosis. Bowel: No significant focal abnormality. Diverticulosis without diverticulitis. Peritoneum: No ascites or free air. Bladder: Grossly unremarkable. Reproductive: Possible calcifications at in a urethral diverticulum. Bones: No acute fracture. Other: n/a IMPRESSION: Increased bilateral perinephric stranding and hydronephrosis could reflect infection (py elonephritis) or renal failure. Scattered air-fluid levels in the colon that may represent a mild ent erocolitis/ malabsorptive process.
[2022-08-06 14:48] LABS: Urine Blood 2+ (Negative); Urine Glucose Negative (Negative); Urine Protein 2+ (Negative)
[2022-08-06 14:58] LABS: Urine Bacteria 20-50 /HPF (<20); Urine RBC 21-50 /HPF (None Seen); Urine WBC Clump Occasional /HPF (None Seen)
[2022-08-06] MEDS ORDERED: CEFTRIAXONE 2000 MG/VIAL ONE (15:25)
[2022-08-06] MEDS ORDERED: NA CHLORIDE 0.9% 100 ML ONE (15:25)
--- NOTE | 2022-08-06 15:59 | EDPHYS ---
Physician Documentation [facility] Name: Cassie Huang Age: 72 yrs Sex: Female : 1950 Arrival Date: 08/06/2022 Time: 11:45 Bed 4 Private MD: ED Physician Rudi Orellana HPI: 08/06 13:20 This 72 yrs old Female presents to ER via Wheelchair with complaints of Diarrhea. rt 13:20 The patient presents to the emergency department with nausea, diarrhea. Onset: The rt symptoms/episode began/occurred 3 month(s) ago. Patient presents to the ED with 3 months of watery diarrhea. Waxes and wanes, she did have improvement of the symptoms yesterday with Imodium, however, today she has had profuse watery diarrhea. She denies any blood in her stool. The patient states that she had a fever up to 102 earlier. The patient reported some mild nausea and abdominal pain. She was going to have a GI series to be performed by gastroenterology today but could not do so due to the profuse diarrhea. She states that she feels weak and dizzy when she stands, believes that she is dehydrated. Symptoms are moderate in severity, no other aggravating or alleviating factors.. Historical: - Allergies: 12:10 lactose (bulk); aa5 12:10 Levaquin; aa5 - PMHx: 12:10 CHF; High Cholesterol; Hypertension; Hypothyroidism; aa5 - PSHx: 12:10 Carotid endarterectomy; cataract repair; aa5 12:10 leg bypass; aa5 - Immunization history:: Adult Immunizations unknown. - Social history:: Smoking status: Patient denies any tobacco usage or history of. - Family history:: not pertinent. ROS: 13:20 Cardiovascular: Negative for chest pain, palpitations, and edema, Respiratory: Negative rt for shortness of breath, cough, wheezing, and pleuritic chest pain, MS/Extremity: Negative for injury and deformity, Skin: Negative for injury, rash, and discoloration, Psych: Negative for depression, anxiety, suicide ideation, homicidal ideation, and hallucinations. 13:20 Constitutional: Positive for fatigue, fever. 13:20 Abdomen/GI: Positive for abdominal pain, diarrhea. 13:20 Neuro: Positive for dizziness, Negative for altered mental status. Exam: 13:20 Constitutional: This is a well developed, well nourished patient who is awake, alert, rt and in no acute distress. Head/Face: Normocephalic, atraumatic. Chest/axilla: Normal chest wall appearance and motion. Nontender with no deformity. No lesions are appreciated. Cardiovascular: Regular rate and rhythm with a normal S1 and S2. No gallops, murmurs, or rubs. Normal PMI, no JVD. No pulse deficits. Respiratory: Lungs have equal breath sounds bilaterally, clear to auscultation and percussion. No rales, rhonchi or wheezes noted. No increased work of breathing, no retractions or nasal flaring. Skin: Warm, dry with normal turgor. Normal color with no rashes, no lesions, and no evidence of cellulitis. MS/ Extremity: Pulses equal, no cyanosis. Neurovascular intact. Full, normal range of motion. Neuro: Awake and alert, GCS 15, oriented to person, place, time, and situation. Cranial nerves II-XII grossly intact. Motor strength 5/5 in all extremities. Sensory grossly intact. Cerebellar exam normal. Normal gait. Psych: Awake, alert, with orientation to person, place and time. Behavior, mood, and affect are within normal limits. 13:20 Eyes: Pale conjunctiva. 13:20 ENT: Dry mucous membranes. 13:20 ECG was reviewed by the Attending Physician. 13:20 Abdomen/GI: Mild abdominal tenderness diffusely without rebound, guarding, distention. Vital Signs: 12:07 BP 90 / 39; Pulse 70; Resp 22 S; Temp 97.2(TE); Pulse Ox 95% on R/A; Weight 54.43 kg aa5 (R); Height 4 ft. 10 in. (147.32 cm) (R); 12:39 BP 136 / 100; Pulse 73; Resp 20; ll1 14:34 BP 109 / 54; Pulse 75; ll1 18:04 BP 129 / 53; Pulse 85; Resp 19; Pulse Ox 95% ; Pain 10/10; ll1 12:07 Body Mass Index 25.08 (54.43 kg, 147.32 cm) aa5 MDM: 12:26 Patient medically screened. rt 15:58 Differential diagnosis: gastritis, diverticulitis, viral gastroenteritis, rt gastroenteritis. Data reviewed: vital signs, nurses notes, old medical records, lab test result(s), EKG, radiologic studies. Consideration of Admission/Observation Patient was admitted/placed on observation. Management of patient was discussed with the following: Hospitalist: Agrees to admit. I considered the following discharge prescriptions or medication management in the emergency department Medications were administered in the Emergency Department. See MAR. Independent interpretation of the following test(s) in the Emergency Department CT Scan: My interpretation is Reviewed imaging,. External Records Reviewed: Outpatient labs: New SAM. Care significantly affected by the following chronic conditions: Congestive Heart Failure. Counseling: I had a detailed discussion with the patient and/or guardian regarding: the historical points, exam findings, and any diagnostic results supporting the discharge/admit diagnosis, lab results, radiology results, the need for further work-up and treatment in the hospital. ED course: Initial documented blood pressure was hypotensive, however, believe that this is. Says immediate repeat shows a normotensive patient. She did meet SIRS criteria, ever, her initial presentation with vital signs were thought to be due to dehydration as compared to sepsis. Once UTI was diagnosed, antibiotics were given. Negative lactate, blood cultures drawn at arrival. Patient to be admitted for further care.. 08/06 12:40 Order name: CBC with Diff; Complete Time: 13:24 rt 08/06 12:40 Order name: CMP; Complete Time: 13:24 rt 08/06 12:40 Order name: Magnesium; Complete Time: 13:24 rt 08/06 12:40 Order name: Lipase; Complete Time: 13:24 rt 08/06 12:40 Order name: Lactate w/ 2H reflex if indic.; Complete Time: 13:24 rt 08/06 12:40 Order name: Blood Culture Adult (2) rt 08/06 14:24 Order name: Urine Microscopic Only; Complete Time: 14:59 rt 08/06 14:48 Order name: Urine Dipstick-Ancillary; Complete Time: 14:59 EDMS 08/06 15:07 Order name: Urine Culture EDMS 08/06 16:15 Order name: CBC with Automated Diff EDMS 08/06 16:15 Order name: CBC with Automated Diff EDMS 08/06 16:15 Order name: Comprehensive Metabolic Panel EDMS 08/06 16:15 Order name: Comprehensive Metabolic Panel EDWV 08/06 16:20 Order name: C-Reactive Protein; Complete Time: 17:39 EDMS 08/06 12:40 Order name: Urine Dipstick-Ancillary (obtain specimen); Complete Time: 14:33 rt 08/06 13:23 Order name: EKG; Complete Time: 13:23 ll1 08/06 13:23 Order name: EKG - Nurse/Tech; Complete Time: 13:23 ll1 08/06 13:50 Order name: Abdomen ; Complete Time: 14:11 EDMS 08/06 16:15 Order name: Clear Liquid EDMS 08/06 16:20 Order name: Celiac Disease Comp Panel EDMS 08/06 16:20 Order name: Thyroid Stimulating Hormone; Complete Time: 17:39 EDMS 08/06 16:44 Order name: SARS RAPID eb 08/06 17:15 Order name: SARS-COV-2 Antigen Rapid; Complete Time: 17:39 EDMS EC:20 Rate is 75 beats/min. Rhythm is regular, Normal Sinus Rhythm with No ectopy. QRS Webster rt is Normal. UT interval is normal. QRS interval is normal. QT interval is normal. Clinical impression: NSR w/ Non-specific ST/T Changes. Administered Medications: 13:00 Drug: NS 0.9% 1000 ml Route: IV; Rate: 1 bolus; Site: left antecubital; ll1 14:00 Follow up: Response: No adverse reaction; IV Status: Completed infusion; IV Intake: ll1 1000ml 13:00 Drug: Bentyl (dicyclomine) 20 mg Route: IM; Site: left gluteus; ll1 13:59 Follow up: Response: No adverse reaction; Pain is decreased; RASS: Alert and Calm (0) ll1 15:30 Drug: Rocephin - (cefTRIAXone) 2 grams Route: IVPB; Infused Over: 30 mins; Site: left ll1 antecubital; 16:15 Follow up: Response: No adverse reaction; IV Status: Completed infusion; IV Intake: ll1 100ml 18:04 Drug: fentaNYL (PF) 50 mcg {Note: RASS 0, pain 10/10.} Route: IVP; Site: left ll1 antecubital; 19:04 Follow up: Response: No adverse reaction; Pain is unchanged, physician notified; RASS: ll1 Alert and Calm (0) Disposition Summary: 08/06/22 15:58 Hospitalization Ordered Hospitalization Status: Inpatient Admission rt Provider: Julius Stephenson [facility] Condition: Fair rt Problem: new rt Symptoms: have improved rt Bed/Room Type: Standard rt Room Assignment: 230(08/06/22 18:31) dw Diagnosis - Other specified sepsis rt - Pyelonephritis acute rt - Acute kidney failure, unspecified rt Forms: - Medication Reconciliation Form rt - SBAR form rt Critical care time excluding procedures: 15:58 Critical care time: Bedside Care: 30 minutes, Consultation: 10 minutes. Total time: 40 rt minutes Signatures: Dispatcher [employer] EDMS Tara Eng RN RN dw Jeanna Kim RN RN aa5 Cesar Palumbo RN RN ll1 Rudi Orellana MD MD rt Corrections: (The following items were deleted from the chart) 13:50 12:41 Abdomen Pelvis W Con+CT.RAD.BRZ ordered. EDWV EDWV 18:31 15:58 rt dw
--- NOTE | 2022-08-06 15:59 | ER ---
Nurse's Notes [facility] Name: Cassie Huang Age: 72 yrs Sex: Female : 1950 Arrival Date: 08/06/2022 Time: 11:45 Bed 4 Private MD: Diagnosis: Other specified sepsis;Pyelonephritis acute;Acute kidney failure, unspecified Presentation: 08/06 12:07 Chief complaint: Patient states: diarrhea x 3 months ago. Pt also reports abd pain, aa5 chills x 2 days ago, and reports fever up to 102.0*F yesterday. Pt reports "I was supposed to have some barium test but I couldn't do it because the diarrhea is so bad". Coronavirus screen: chills. Ebola Screen: Patient denies travel to an Ebola-affected area in the 21 days before illness onset. Initial Sepsis Screen: Does the patient meet any 2 criteria? RR > 20 per min. Does the patient have a suspected source of infection? Yes:. Risk Assessment: Do you want to hurt yourself or someone else? Patient reports no desire to harm self or others. Onset of symptoms was July 2022. 12:07 Acuity: ELIANE 2 aa5 12:07 Method Of Arrival: Wheelchair aa5 Historical: - Allergies: 12:10 lactose (bulk); aa5 12:10 Levaquin; aa5 - PMHx: 12:10 CHF; High Cholesterol; Hypertension; Hypothyroidism; aa5 - PSHx: 12:10 Carotid endarterectomy; cataract repair; aa5 12:10 leg bypass; aa5 - Immunization history:: Adult Immunizations unknown. - Social history:: Smoking status: Patient denies any tobacco usage or history of. - Family history:: not pertinent. Screenin:04 [facility] ED Fall Risk Assessment (Adult) Score/Fall Risk Level 0 - 2 = Low Risk ll1 Oriented to surroundings, Maintained a safe environment, Educated pt \\T\\ family on fall prevention, incl call for assistance when getting out of bed, Hourly rounding (assess needs \\T\\ fall precautionary measures) done. Abuse screen: Denies threats or abuse. Nutritional screening: No deficits noted. Tuberculosis screening: No symptoms or risk factors identified. Assessment: 12:41 General: Appears uncomfortable, ill, Behavior is calm, cooperative, appropriate for ll1 age. Pain: Complains of pain in abdomen. GI: Reports lower abdominal pain, upper abdominal pain, diarrhea. 13:59 Reassessment: No changes from previously documented assessment. Patient and/or family ll1 updated on plan of care and expected duration. Pain level reassessed. back from CT. 14:34 Reassessment: No changes from previously documented assessment. Patient and/or family ll1 updated on plan of care and expected duration. Pain level reassessed. 14:55 Reassessment: No changes from previously documented assessment. ll1 15:25 Reassessment: No changes from previously documented assessment. Patient and/or family ll1 updated on plan of care and expected duration. Pain level reassessed. Patient is alert, oriented x 3, equal unlabored respirations, skin warm/dry/pink. 16:45 Reassessment: No changes from previously documented assessment. Patient and/or family ll1 updated on plan of care and expected duration. Pain level reassessed. Patient is alert, oriented x 3, equal unlabored respirations, skin warm/dry/pink. 18:05 Reassessment: No changes from previously documented assessment. Patient and/or family ll1 updated on plan of care and expected duration. Pain level reassessed. Patient is alert, oriented x 3, equal unlabored respirations, skin warm/dry/pink. 19:16 General: Appears uncomfortable, Behavior is cooperative, anxious. Pain: Complains of aa9 pain in lower and upper back pain Alleviated by heat application, Aggravated by increased activity, repositioning. Neuro: Level of Consciousness is awake, alert, obeys commands, Oriented to person, place, time, situation. Respiratory: Airway is patent Trachea midline Respiratory effort is even, unlabored. 20:12 Reassessment:. aa9 Vital Signs: 12:07 BP 90 / 39; Pulse 70; Resp 22 S; Temp 97.2(TE); Pulse Ox 95% on R/A; Weight 54.43 kg aa5 (R); Height 4 ft. 10 in. (147.32 cm) (R); 12:39 BP 136 / 100; Pulse 73; Resp 20; ll1 14:34 BP 109 / 54; Pulse 75; ll1 18:04 BP 129 / 53; Pulse 85; Resp 19; Pulse Ox 95% ; Pain 10/10; ll1 12:07 Body Mass Index 25.08 (54.43 kg, 147.32 cm) aa5 ED Course: 11:45 Patient arrived in ED. rg4 11:50 Rudi Orellana MD is Attending Physician. rt 12:07 Arm band placed on. aa5 12:09 Triage completed. aa5 12:14 Cesar Palumbo, RN is Primary Nurse. ll1 12:14 Patient placed in an exam room, on a stretcher. ll1 13:00 Lactate w/ 2H reflex if indic. Sent. bc6 13:00 Magnesium Sent. bc6 13:00 Lipase Sent. bc6 13:00 CMP Sent. bc6 13:00 CBC with Diff Sent. bc6 13:00 Inserted saline lock: 20 gauge in left antecubital area, using aseptic technique. bc6 13:05 Patient has correct armband on for positive identification. Bed in low position. Call ll1 light in reach. Side rails up X2. Client placed on continuous cardiac and pulse oximetry monitoring. NIBP monitoring applied. secured entrance monitor on. 13:55 Abdomen In Process Unspecified. EDMS 14:34 Urine Microscopic Only Sent. ll1 14:53 EKG done, by ED staff. tm3 15:19 Blood Culture Adult (2) Sent. ll1 15:58 Julius Stephenson MD is Hospitalizing Provider. rt 16:58 SARS RAPID Sent. ll1 16:58 Celiac Disease Comp Panel Sent. ll1 19:15 Pillow given. aa9 19:15 No provider procedures requiring assistance completed. Patient admitted, IV remains in aa9 place. 19:29 Primary Nurse role handed off by Cesar Palumbo, RAMIREZ wm Administered Medications: 13:00 Drug: NS 0.9% 1000 ml Route: IV; Rate: 1 bolus; Site: left antecubital; ll1 14:00 Follow up: Response: No adverse reaction; IV Status: Completed infusion; IV Intake: ll1 1000ml 13:00 Drug: Bentyl (dicyclomine) 20 mg Route: IM; Site: left gluteus; ll1 13:59 Follow up: Response: No adverse reaction; Pain is decreased; RASS: Alert and Calm (0) ll1 15:30 Drug: Rocephin - (cefTRIAXone) 2 grams Route: IVPB; Infused Over: 30 mins; Site: left ll1 antecubital; 16:15 Follow up: Response: No adverse reaction; IV Status: Completed infusion; IV Intake: ll1 100ml 18:04 Drug: fentaNYL (PF) 50 mcg {Note: RASS 0, pain 10/10.} Route: IVP; Site: left ll1 antecubital; 19:04 Follow up: Response: No adverse reaction; Pain is unchanged, physician notified; RASS: ll1 Alert and Calm (0) Medication: 17:32 VIS not applicable for this client. ll1 Intake: 14:00 IV: 1000ml; Total: 1000ml. ll1 16:15 IV: 100ml; Total: 1100ml. ll1 18:26 urinated x 2 to BS commode. Tolerated well. No diarrhea so far. ll1 Outcome: 15:58 Decision to Hospitalize by Provider. rt 19:44 Condition: stable aa9 19:51 Admitted to Med/surg accompanied by tech, via stretcher, room 230, with chart, Report aa9 called to Receiving nurse 19:51 Instructed on the need for admit. 20:17 Patient left the ED. aa9 Signatures: Dispatcher [employer] EDMS Gilmar Allison tm3 Jeanna Kim, RN RN aa5 Lia Culp rg4 Cesar Palumbo RN RN ll1 Mirella Dumont Aylin, RN RN aa9 Rudi Orellana MD MD rt Rosy Saenz bc6 Corrections: (The following items were deleted from the chart) 12:10 12:07 Initial Sepsis Screen: Does the patient meet any 2 criteria? No. Patient's aa5 initial sepsis screen is negative. Does the patient have a suspected source of infection? Yes: aa5 12:12 12:07 Chief complaint: Patient states: diarrhea x 3 months ago. Pt also reports abd aa5 pain, chills x 2 days ago, and reports fever up to 102.0*F yesterday. Pt reports "I was supposed to have a CT scan but I couldn't do it because the diarrhea is so bad" aa5 12:12 12:07 BP 90 / 39; Pulse 70bpm; Resp 22bpm; Spontaneous; Pulse Ox 95% RA; Temp 97.2F aa5 Temporal; aa5 14:54 14:53 Urine collected: tm3 tm3 19:17 19:16 Respiratory: Airway is patent Trachea midline Respiratory effort is even, aa9 labored, aa9
[2022-08-06] MEDS ORDERED: ONDANSETRON 4 MG/2 ML VIAL IV PRN (16:10)
[2022-08-06] MEDS ORDERED: LOPERAMIDE HCL 2 MG CAPSULE PO PRN (16:18)
--- NOTE | 2022-08-06 16:20 | P.HP ---
Certification for Inpatient Patient admitted to: Observation With expected LOS: <2 Midnights Practitioner: I am a practitioner with admitting privileges, knowledge of patient current condition, hospital course, and medical plan of care. Services: Services provided to patient in accordance with Admission requirements found in Title 42 Section 412.3 of the Code of Federal Regulations Patient History Date of Service: 08/06/22 Reason for admission: Watery diarrhea dehydration possible UTI History of Present Illness: Age 72 c/o diarhea. Evaluated for c diarhea for 3 months, watery worse today , mild nausea na d abdominal pain, fealing weak and dizzy, dehydrated Patient has been worked up for diarrhea for the past 3 months has seen GI Dr. Villarreal and he was scheduled to undergo a barium test for diverticulitis area got worse recently is predominantly at night has some stomach soreness came into the hospital because she felt very weak - Past Medical/Surgical History -: Congestive heart failure hyperlipidemia hypertension hypothyroidism -: Carotid endarterectomy cataract repair vascular lower extremity bypass - Social History Smoking Status: Never smoker Review of Systems 10-point ROS is otherwise unremarkable General: Weakness Gastrointestinal: Diarrhea Physical Examination - Vital Signs Temperature: 97.2 F Blood Pressure: 90/39 Pulse: 70 Respirations: 22 Pulse Ox (%): 95 (Room air) - Physical Exam General: Alert, In no apparent distress, Oriented x3 HEENT: Atraumatic Neck: Supple Respiratory: Clear to auscultation bilaterally Cardiovascular: No edema, Regular rate/rhythm Gastrointestinal: Normal bowel sounds, No masses, No rebound, No guarding, Tenderness (Very mild generalized tenderness no rebound or guarding) Integumentary: No rashes, No breakdown, No significant lesion Neurological: Normal speech, Normal strength at 5/5 x4 extr - Studies Laboratory Data (last 24 hrs) 08/06/22 12:55: Sodium 130 L, Potassium 3.9, BUN 28 H, Creatinine 1.54 H, Glucose 119 H, Magnesium 2.4, Total Bilirubin 0.4, AST 35, ALT 29, Alkaline Phosphatase 92, Lipase 65 L 08/06/22 12:55: WBC 15.30 H, Hgb 9.1 L, Hct 26.6 L, Plt Count 193 Assessment and Plan - Problems (Diagnosis) (1) Diarrhea Current Visit: Yes Status: Acute Plan: Patient is 72 years of age admitted with weakness following episode of profound diarrhea been worked up for diarrhea for the past [address] Villarreal scheduled to undergo barium test today denies any other cardiorespiratory problems. Seems to be mostly at night she is also got chronic burning in the urine patient's white count is elevated analysis suggestive of a UTI CT of the abdomenScattered air-fluid levels in the colon that may represent a mild enterocolitis/ malabsorptive process plan to admit patient rehydrate patient is volume depleted renal function is a little worse also blood pressure is low medication summary reviewed she took some sleeping pills at home blood pressure pills cholesterol pill need to be reconciled Qualifiers: Diarrhea type: unspecified type Qualified Code(s): R19.7 - Diarrhea, unspecified (2) Pyelonephritis Current Visit: Yes Status: Acute Plan: Possible urinary analysis suggestive of an infection CT of the abdomen Increased bilateral perinephric stranding and hydronephrosis could reflect infection (pyelonephritis) or renal failure. Scattered air-fluid levels in the colon that may represent a mild enterocolitis/ malabsorptive process trial of Rocephin - Advance Directives Does patient have a Living Will: No Does patient have a Durable POA for Healthcare: No
[2022-08-06] MEDS: POTASSIUM 25 MEQ EFFERV TAB PO SCH (16:30)
[2022-08-06 17:14] LABS: SARS-CoV-2 Antigen Rapid Res Negative (Negative)
[2022-08-06 17:31] LABS: Thyroid Stimulating Hormone 0.835 uIU/mL (0.358-3.740)
[2022-08-06] MEDS ORDERED: FENTANYL CITR 100 MCG/2 ML ONE (17:50)
[2022-08-06 21:56] VITALS: O2SAT 95
[2022-08-06] MEDS: NA CHLORIDE 0.9% 1,000 ML IV SCH (22:11)
[2022-08-06 22:28] VITALS: BMI 25.9
[2022-08-07] MEDS: TRAMADOL HCL 50 MG TAB PO PRN ×2 (02:31→10:01)
[2022-08-07] MEDS: NA CHLORIDE 0.9% 1,000 ML IV SCH (03:00)
[2022-08-07 03:39] LABS: Absolute Lymphocytes (CBC) 1.2 K/uL (0.7-4.9); Hematocrit 23.3 % (36.0-45.0); Lymphocytes % 9.5 % (15.3-44.8); MCV 96.3 fL (80-100); MPV 8.2 fL (7.6-11.3); RBC Red Blood Cell Count 2.42 M/uL (3.86-4.86)
[2022-08-07 04:03] LABS: Albumin 2.6 g/dL (3.4-5.0); Bilirubin Total 0.3 mg/dL (0.2-1.0); Potassium 3.4 mmol/L (3.5-5.1); Protein, Total 5.8 g/dL (6.4-8.2)
[2022-08-07] MEDS ORDERED: NA CHLORIDE 0.9% 250 ML IV ONE (04:34)
[2022-08-07] MEDS ORDERED: ALBUMIN HUMAN 25% 100 ML IV ONE (04:34)
[2022-08-07] MEDS: POTASSIUM 25 MEQ EFFERV TAB PO SCH (08:38)
[2022-08-07] MEDS ORDERED: CEFTRIAXONE 1,000 MG in NA CHLORIDE 0.9% 50 ML IVPB SCH (09:00)
[2022-08-07] MEDS ORDERED: LEVOTHYROXINE SOD 0.075 MG TAB PO SCH (09:00)
[2022-08-07] MEDS ORDERED: AMLODIPINE 5 MG TAB PO SCH (09:00)
[2022-08-07 14:14] LABS: Absolute Lymphocytes (CBC) 1.3 K/uL (0.7-4.9); Hematocrit 23.6 % (36.0-45.0); Lymphocytes % 12.9 % (15.3-44.8); MCV 96.7 fL (80-100); MPV 7.4 fL (7.6-11.3); RBC Red Blood Cell Count 2.44 M/uL (3.86-4.86)
[2022-08-07 15:15] LABS: Ferritin 198.6 ng/mL (8-388)
[2022-08-07 16:23] VITALS: BP 108/50; TEMP 97.4
[2022-08-07] MEDS ORDERED: TEMAZEPAM 15 MG CAP PO SCH (21:00)
[2022-08-07] MEDS ORDERED: FAMOTIDINE 20 MG TAB PO SCH (21:00)
[2022-08-07] MEDS ORDERED: ATORVASTATIN 10 MG TAB PO SCH (21:00)
== END 2022-08-07 17:57 | disposition home or self-care (01) ==
LOC: ER 11:43 → ERHOLD 16:10 → 2ND 19:30
PROVIDERS: ADMIT Internal Medicine Sleep Medicine; ATTEND Hospitalist
DX: R19.7 Diarrhea, unspecified (principal); N10 Acute pyelonephritis; R11.0 Nausea; R10.9 Unspecified abdominal pain; E86.0 Dehydration; E86.9 Volume depletion, unspecified; E03.9 Hypothyroidism, unspecified; I10 Essential (primary) hypertension; E78.5 Hyperlipidemia, unspecified; I50.9 Heart failure, unspecified; Z88.6 Allergy status to analgesic agent; Z20.822 Contact with and (suspected) exposure to COVID-19
CPT/HCPCS: 96365; 96361; 87040 ×2; 87088; 85025 ×3; 87086; 36415 ×2; 83735; 85044; 83605; 84443; 87077; 87186; 82728; 82607; 83690; 83540; 80053 ×2; 82747; 82784; 84466; 86140; 74176; 96375; 96372; 99285; 86364; 87811; J0500; J3010; P9047; J7050; J7030 ×3; J0696; 81003; 81015; 93005; G0378

== ENCOUNTER 2023-05-25 18:41 | Inpatient (IN) | payer OTHER ==
--- NOTE | 2023-05-25 19:15 | RAD REPORT ---
EXAM DESCRIPTION: CT - Ct Stroke Brain Wo Cont - 05/25/2023 7:02 pm CLINICAL HISTORY: STROKE ALERT COMPARISON: No comparisons TECHNIQUE: Noncontrast head CT images were obtained without IV contrast. Multiplanar reformats were generated and reviewed. All CT scans are performed using dose optimization technique as appropriate and may include automated exposure control or mA/KV adjustment according to patient size. FINDINGS: No intracranial hemorrhage, mass, or edema. Midline structures are unremarkable. Calcific focus along the right sylvian fissure anteriorly, suggestive of intracranial atherosclerotic disease no hyperdense vessel sign. Normal ventricular caliber for age. Mckoy-white matter differentiation is preserved, without evidence of acute infarct. No abnormal extra- axial fluid collections. Mastoid air cells show patchy opacification of the right. Visualized portions of the paranasal sinuse s are clear. No acute bony findings. IMPRESSION: No evidence of an acute intracranial process. Findings as above. The findings were communicated to Jean Palm on 05/25/2023 at 18:58 hours.
--- OUTSIDE RECORDS SUMMARY | 2023-05-25 19:31 | XMS REPORT | Continuity of Care Document ---
:1950 Author Organization [facility] t Address [address] [place] [address] [place] [id number] Care Team Providers Name Role Phone JOSE ALBERTO PRICE Attending Clinician Unavailable [email or web address] Attending Clinician Unavailable REGINA AL Attending Clinician Unavailable DANAE LIU Attending Clinician Unavailable IKE PRECIADO Attending Clinician Unavailable [email or web address] Admitting Clinician Unavailable IKE PRECIADO Admitting Clinician Unavailable Problems Condition Condition Condition Status Onset Resolution Last Treating Co mments Source Name Details Category Date Date Treatment Clinician Date Z.818 - Z01.818 - Diagnosis Active 2021-01-08 Memoria ENCOUNTER ENCOUNTER 01-08 14:43:00 l FOR OTHER FOR OTHER 00:01: Tiarra collins PREPROCEDU PREPROCEDU 00 Active 01/08/2021 [place]AC[place] OPID [facility] CAROTID CAROTID Diagnosis Active 2021-01-17 Memoria STENOSIS STENOSIS 12-15 21:38:00 l Active 00:00: Jesús 12/15/2020 00 MH [facility] N/A N/A Diagnosis Active 2021-01-13 Mem oria Active 12-15 06:56:00 l 12/15/2020 00:00: Kishore rubio MH 00 [facility] I10 - I10 - Diagnosis Active 2020-10-24 Me moria ESSENTIAL ESSENTIAL 10-24 14:46:00 l (PRIMARY) (PRIMARY) 00:01: Tiarra collins HYPERTENSI HYPERTENSI 00 Active 10/24/2020 OPID [facility] PICC LINE PICC LINE Diagnosis Active 2020-09-18 Memoria INSERTION INSERTION 3-15 11:38:00 l /// 25.118 /// 25.118 00:00: He rmann Active 00 09/08/2020 [facility] Z95.820 Z95.820 Diagnosis Active 2019-10-14 Memoria PERIPHERAL PERIPHERAL 3-04 15:20:00 l VASCULAR VASCULAR 00:00: Kishore rubio ANGIOPLAST ANGIOPLAST 00 Y Y Active 08/29/2019 [facility] Z95.820 Z95.820 Diagnosis Active 2017-062018-06-13 Memoria Active 08-09 11:29:00 l 06/08/2018 00:00: Kishore rubio 00 [facility] ATHEROSCLE ATHEROSCL Diagnosis Active 2017-11-16 Memoria ROSIS OF EROSIS OF 11-11 16:01:00 l TONAWANDA TONAWANDA 00:00: Jesús ARTERIES ARTERIES 00 OF EX OF EX Active 11/11/2017 [facility] ABDOMINAL Diagnosis Active 2017-11-04 Memoria PAIN ABDOMINAL 5-07 09:15:00 l PAIN 00:00: Jesús Active 00 10/31/2017 [facility] 789.0 - 789.0 - Diagnosis Active 2017-12-14 Memoria ABDOMINAL ABDOMINAL 5-04 09:38:00 l PAIN PAIN 00:01: [place] Active 00 10/28/2017 OPID Isabella Z95.820 - Z95.820 - Diagnosis Active 2016-12-13 Memoria PERIPHERAL PERIPHERAL 5-12 16:13:00 l VASCULAR VASCULAR 00:01: Kishore rubio ANGIOPLAST ANGIOPLAST 00 Active 11/05/2016 [facility] Isabella Z45.2 Z45.2 Diagnosis Active 2015-12-08 Mem oria Active 12-02 08:55:00 l 12/03/2015 00:00: Kishore rubio 00 [facility] Z00.00 - Z00.00 - Diagnosis Active 2016-01-01 Memoria ENCNTR FOR ENCNTR FOR 11-27 16:15:00 l GENERAL GENERAL 00:01: Jesús ADULT ADULT 00 MEDIC MEDIC Active 11/28/2015 [facility] Isabella Z00 - Z00 - Diagnosis Active 2016-01-01 Me laila ENCNTR FOR ENCNTR FOR 11-18 16:25:00 l GENERAL GENERAL 00:01: Jesús EXAM W/O EXAM W/O 00 CO CO Active 11/19/2015 OPID [facility] Femoral-po Problem Active 2021-01-16 M emoria pliteal Femoral-po 02-06 22:15:47 l artery pliteal 00:00: [place] bypass artery 00 graft bypass (procedure graft ) (procedure ) Active 02/06/2014 Problem 01/16/2021 OPID [facility] 443.9 443.9 Diagnosis Active 2014-02-20 Mem oria Active 01-09 21:44:00 l 01/09/2014 00:00: Kishore n 00 [facility] 443.9, 443.9, Diagnosis Active 2013-12-12 Me moria 440.20 440.20 6- 08:00:00 l Active 00:00: Jesús 12/10/2013 00 [facility] 447.1, 447.1, Diagnosis Active 2013-11-07 Me moria 433.10 433.10 10-23 13:18:00 l ATTN : ATTN : 00:00: [place] SUBCLAVIAN SUBCLAVIAN 00 Active 10/23/2013 [facility] Incision Incision Problem Active 2021-01-16 Memoria of of 02-21 22:15:47 l [facility]astinu [facility] ([facility] ) ) Active 02/21/2013 Problem 01/16/2021 OPID [facility] Mediastino Mediastin Problem Active 2013-03-04 Memoria faheem otomy 02-21 20:24:16 l Active 00:00: [place] 02/21/2013 00 Problem 03/04/2013 [facility] SUBCLAVIAN Diagnosis Active 2013-03-06 Memoria STENOSIS SUBCLAVIAN 02-01 21:51:00 l STENOSIS 00:00: Jesús Active 00 02/01/2013 [facility] SUPLAVIAN SUPLAVIAN Diagnosis Active 2013-01-05 Memoria BIPASS, BIPASS, 01-02 08:49:00 l DX- DX- 00:00: Jesús SUBCLAVIAN SUBCLAVIAN 00 S STNOSI S STNOSI Active 01/02/2013 [facility] Bronchiect Bronchiec Problem 2019-01-01 Memoria asis, tasis, 11:17:24 l uncomplica uncomplica He iris felipe matteo 01/01/2019 [facility] Peripheral Periphera Problem 2019-01-01 Memoria vascular l vascular 11:17:24 l disease, disease, Kishore n unspecifie unspecifie d d 01/01/2019 [facility] Atheroscle Atheroscl Problem 2017-11-21 Memoria rosis of erosis of 01:08:22 l kashia kashia [place] arteries arteries of of extremitie extremitie s with s with intermitte intermitte nt nt claudicati claudicati on, on, bilateral bilateral legs legs 11/21/2017 [facility] Thyroid Thyroid Problem Inactiv 2013-03-04 M emoria disease disease e 20:24:16 l Inactive [place] Problem 03/04/2013 [facility] Anemia Anemia Problem Resolve 2021-01-16 Mem oria (disorder) (disorder) d 22:15:47 l Resolved Jesús Problem 01/16/2021 H/O BLOOD TRANSFUSIO N [facility] Angina Angina Problem Resolve 2021-01-16 Mem oria (disorder) (disorder) d 22:15:47 l Resolved [place] Problem 01/16/2021 [facility] Coronary Coronary Problem Resolve 2021-01-16 Memoria arterioscl arterioscl d 22:15:47 l erosis erosis [place] (disorder) (disorder) Resolved Problem 01/16/2021 [facility] 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 Memoria tumor of tumor of d 22:15:47 l cervix cervix Jesús (disorder) (disorder) Resolved Problem 01/16/2021 [facility] Disorder Disorder Problem Resolve 2021-01-16 Memoria of carotid of carotid d 22:15:47 l artery artery [place] (disorder) (disorder) Resolved Problem 01/16/2021 [facility] Fracture Fracture Problem Resolve 2021-01-16 Memoria of bone of bone d 22:15:47 l (disorder) (disorder) He rmann Resolved Problem 01/16/2021 [facility] Cerebrovas Problem Resolve 2021-01-16 Memoria cular Cerebrovas d 22:15:47 l accident cular [place] (disorder) accident (disorder) Resolved Problem 01/16/2021 OPID [facility] Disease of Disease Problem Resolve 2021-01-16 Memoria thyroid of thyroid d 22:15:47 l gland gland [place] (disorder) (disorder) Resolved Problem 01/16/2021 [facility] Myocardial Myocardia Problem Resolve 2021-01-16 Memoria infarction l d 22:15:47 l (disorder) infarction He rmann (disorder) Resolved Problem 01/16/2021 OPID [facility] Anemia Anemia Problem Resolve 2013-03-04 Mem oria Resolved d 20:24:16 l Problem Jesús 03/04/2013 <sup>1</durham p>H/O BLOOD TRANSFUSIO N OPID [facility] Angina Angina Problem Resolve 2013-03-04 Mem oria Resolved d 20:24:16 l Problem [place] 03/04/2013 OPID [facility] CAD - CAD - Problem Resolve 2013-03-04 Hossein diana Coronary Coronary d 20:24:16 l artery artery [place] disease disease Resolved Problem 03/04/2013 [facility] Cancer of Cancer of Problem Resolve 2013-03-04 Memoria cervix cervix d 20:24:16 l Resolved Jesús Problem 03/04/2013 OPID [facility] Carotid Carotid Problem Resolve 2013-03-04 M emoria artery artery d 20:24:16 l disease disease [place] Resolved Problem 03/04/2013 OPID [facility] Fracture Fracture Problem Resolve 2013-03-04 Memoria Resolved d 20:24:16 l Problem [place] 03/04/2013 OP[facility] Hyperchole Problem Active 2021-01-16 M emoria sterolemia Hyperchole 22:15:47 l (disorder) sterolemia He rmann (disorder) Active Problem 01/16/2021 OPID [facility] Dyspnea on Dyspnea Problem Active 2021-01-16 Memoria exertion on 22:15:47 l (finding) exertion Lilian nn (finding) Active Problem 01/16/2021 [facility] Subclavian Subclavia Problem Active 2021-01-16 Memoria artery n artery 22:15:47 l stenosis stenosis Kishore n (disorder) (disorder) Active Problem 01/16/2021 [facility] Peripheral Periphera Problem Active 2021-01-16 Memoria vascular l vascular 22:15:47 l disease disease Jesús (disorder) (disorder) Active Problem 01/16/2021 [facility] HYPOTENSIO HYPOTENSI Problem Active 2014-02-12 Memoria N(Confirme ON(Confirm 18:26:32 l d) ed) Active Kishore n Problem 02/12/2014 [facility] Hyperchole Hyperchol Problem Active 2013-03-04 Memoria sterolemia esterolemi 20:24:16 l a Active [place] Problem 03/04/2013 [facility] HYPOTENSIO HYPOTENSI Problem Active 2013-03-04 Memoria N ON Active 20:24:16 l Problem Jesús 03/04/2013 [facility] SOBOE - SOBOE - Problem Active 2013-03-04 Me moria Shortness Shortness 20:24:16 l of breath of breath Herm karina on on exertion exertion Active Problem 03/04/2013 [facility] Subclavian Subclavia Problem Active 2013-03-04 Memoria artery n artery 20:24:16 l stenosis stenosis Kishore n Active Problem 03/04/2013 [facility] OCCLUSION OCCLUSION Diagnosis Active 2021-01-17 Memoria AND AND 21:38:00 l STENOSIS STENOSIS Kishore n OF OF BILATERAL BILATERAL XIAO XIAO Active [facility] SUBCLAVIAN Diagnosis Active 2013-03-06 Memoria ANEURYSM SUBCLAVIAN 21:51:00 l ANEURYSM [place] Active [facility] PERIPH PERIPH Diagnosis Active 2014-02-20 Me moria VASCULAR VASCULAR 21:44:00 l DIS NOS DIS NOS [place] Active [facility] ATHSCL ATHSCL Diagnosis Active 2017-11-16 Me moria TONAWANDA TONAWANDA 16:01:00 l ARTERIES ARTERIES Kishore n OF EXTRM W OF EXTRM W INTRMT INTRMT Active [facility] History of Past Illness Condition Condition Condition Status Onset Resolution Last Treating Co mments Source Name Details Category Date Date Treatment Clinician Date Peripheral Problem 2017-062019-01-01 2019-01-01 Memoria vascular Peripheral - 11:17:24 11:17:24 l angioplast vascular 03:45: Herm karina y status angioplast 24 with y status implants with and grafts implants and grafts 06/18/2018 01/01/2019 [facility] Allergies, Adverse Reactions, Alerts Allergy Allergy Status Severity Reaction(s) Onset Inactive Treating Comm ents Source Name Type Date Date Clinician eddy torresaqtammie Active 2002-06 Memori a and and 07 l deriviti deriviti 00:00: Kishore n ves ves 00 codeine codeine Active 2002-06 Memoria 07 l 00:00: Jesús 00 morphine morphine Active 2002-06 Memori a 07 l 00:00: Jesús 00 Propacet Propacet Active 2002-06 Memori a 07-03 l 00:00: [place] 00 Adhesive Adhesive Active Memori a Tape Tape l Jesús Social History Social Habit Start Date Stop Date Quantity Comments Source Social History 2020-10-22 2020-10-22 [facility] 19:48:47 19:48:47 Medications Ordered Filled Start Stop Current Ordering Indication Dosage Frequency Signature Comments Components Source Medication Medication Date Date Medication? Clinician (SIG) Name Name amLODIPine 2020-0 Yes 5 mg = 1 Mem oria 5 mg oral 7-21 tab, PO, l tablet 17:59: Daily, # Jesús 00 30 tab, 0 Refill(s) amLODIPine 2020-0 Yes 5 mg = 1 Mem oria 5 mg oral 7-21 tab, PO, l tablet 17:59: Daily, # Jesús 00 30 tab, 0 Refill(s) amLODIPine 2020-0 Yes 5 mg = 1 Mem oria 5 mg oral 7-21 tab, PO, l tablet 17:59: Daily, # Jesús 00 30 tab, 0 Refill(s) amLODIPine 2020-0 Yes 5 mg = 1 Mem oria 5 mg oral 7-21 tab, PO, l tablet 17:59: Daily, # [place] 00 30 tab, 0 Refill(s) amLODIPine 1-0 Yes 5 mg = 1 Mem oria 5 mg oral 7-21 tab, PO, l tablet 17:59: Daily, # [place] 00 30 tab, 0 Refill(s) amLODIPine 1-0 Yes 5 mg = 1 Mem oria 5 mg oral 7-21 tab, PO, l tablet 17:59: Daily, # [place] 00 30 tab, 0 Refill(s) Aspirin 81 No Notes: Do Me moria MG Enteric 7-21 not crush l Coated 17:37: or chew. [place] Tablet 00 (Same As: Ecotrin) clopidogrel No Notes: Hossein diana 7-21 (Same As: l 17:37: Plavix) Jesús Aspirin 81 No Notes: Do Me moria MG Enteric 7-21 not crush l Coated 17:37: or chew. [place] Tablet 00 (Same As: Ecotrin) clopidogrel No Notes: Hossein diana 7-21 (Same As: l 17:37: Plavix) [place] Aspirin 81 No Notes: Do Me moria MG Enteric 7-21 not crush l Coated 17:37: or chew. [place] Tablet 00 (Same As: Ecotrin) clopidogrel No Notes: Hossein diana 7-21 (Same As: l 17:37: Plavix) [place] Aspirin 81 No Notes: Do Me moria MG Enteric 7-21 not crush l Coated 17:37: or chew. [place] Tablet 00 (Same As: Ecotrin) clopidogrel No Notes: Hossein diana 7-21 (Same As: l 17:37: Plavix) Jesús Aspirin 81 No Notes: Do Me moria MG Enteric 7-21 not crush l Coated 17:37: or chew. [place] Tablet 00 (Same As: Ecotrin) clopidogrel No Notes: Hossein diana 7-21 (Same As: l 17:37: Plavix) Jesús Aspirin 81 No Notes: Do Me moria MG Enteric 7-21 not crush l Coated 17:37: or chew. [place] Tablet 00 (Same As: Ecotrin) clopidogrel No [...] l 3350 14:00: in 8 oz of [place] 00 water or juice. (Same as: Miralax) [...] l 3350 14:00: in 8 oz of [place] 00 water or juice. (Same as: Miralax) POLYETHYLEN No Notes: Hossein diana E GLYCOL 7-21 Dissolve l 3350 14:00: in 8 oz of [place] 00 water or juice. (Same as: Miralax) clopidogrel Yes 75 mg = 1 M emoria 75 MG Oral 7-21 tab, PO, l Tablet 12:55: Daily, # Jesús [Plavix] 00 90 tab, 0 Refill(s), Pharmacy: [facility] #[id number], 149.86, cm, 01/08/21 13:20:00 CDT, Height, 62.091, kg, 01/08/21 13:20:00 CDT, Weight tramadol Yes 50 mg = 1 Hossein diana hydrochlori 7-21 tab, PO, l de 50 MG 12:55: Q6H, PRN Lilian nn Oral Tablet 00 Pain, X 5 day, # 18 tab, 0 Refill(s), Pharmacy: [facility] #[id number], 149.86, cm, 01/08/21 13:20:00 CDT, Height, 62.091, kg, 01/08/21 13:20:00 CDT, Weight clopidogrel Yes 75 mg = 1 M emoria 75 MG Oral 7-21 tab, PO, l Tablet 12:55: Daily, # [place] [Plavix] 00 90 tab, 0 Refill(s), Pharmacy: [facility] #[id number], 149.86, cm, 01/08/21 13:20:00 CDT, Height, 62.091, kg, 01/08/21 13:20:00 CDT, Weight tramadol 1-0 Yes 50 mg = 1 Hossein diana hydrochlori 7-21 tab, PO, l de 50 MG 12:55: Q6H, PRN Lilian nn Oral Tablet 00 Pain, X 5 day, # 18 tab, 0 Refill(s), Pharmacy: [facility] #[id number], 149.86, cm, 01/08/21 13:20:00 CDT, Height, 62.091, kg, 01/08/21 13:20:00 CDT, Weight clopidogrel 1-0 Yes 75 mg = 1 M emoria 75 MG Oral 7-21 tab, PO, l Tablet 12:55: Daily, # [place] [Plavix] 00 90 tab, 0 Refill(s), Pharmacy: [facility] #[id number], 149.86, cm, 01/08/21 13:20:00 CDT, Height, 62.091, kg, 01/08/21 13:20:00 CDT, Weight tramadol 2020-0 Yes 50 mg = 1 Hossein diana hydrochlori 7-21 tab, PO, l de 50 MG 12:55: Q6H, PRN Lilian nn Oral Tablet 00 Pain, X 5 day, # 18 tab, 0 Refill(s), Pharmacy: [facility] #[id number], 149.86, cm, 01/08/21 13:20:00 CDT, Height, 62.091, kg, 01/08/21 13:20:00 CDT, Weight clopidogrel 1-0 Yes 75 mg = 1 M emoria 75 MG Oral 7-21 tab, PO, l Tablet 12:55: Daily, # [place] [Plavix] 00 90 tab, 0 Refill(s), Pharmacy: [facility] #[id number], 149.86, cm, 01/08/21 13:20:00 CDT, Height, 62.091, kg, 01/08/21 13:20:00 CDT, Weight tramadol 2021-0 Yes 50 mg = 1 Hossein diana hydrochlori 7-21 tab, PO, l de 50 MG 12:55: Q6H, PRN Lilian nn Oral Tablet 00 Pain, X 5 day, # 18 tab, 0 Refill(s), Pharmacy: [facility] #[id number], 149.86, cm, 01/08/21 13:20:00 CDT, Height, 62.091, kg, 01/08/21 13:20:00 CDT, Weight clopidogrel 2020-0 Yes 75 mg = 1 M emoria 75 MG Oral 7-21 tab, PO, l Tablet 12:55: Daily, # Jesús [Plavix] 00 90 tab, 0 Refill(s), Pharmacy: [facility] #[id number], 149.86, cm, 01/08/21 13:20:00 CDT, Height, 62.091, kg, 01/08/21 13:20:00 CDT, Weight tramadol 2020-0 Yes 50 mg = 1 Hossein diana hydrochlori 7-21 tab, PO, l de 50 MG 12:55: Q6H, PRN Lilian nn Oral Tablet 00 Pain, X 5 day, # 18 tab, 0 Refill(s), Pharmacy: [facility] #[id number], 149.86, cm, 01/08/21 13:20:00 CDT, Height, 62.091, kg, 01/08/21 13:20:00 CDT, Weight clopidogrel 2020-0 Yes 75 mg = 1 M emoria 75 MG Oral 7-21 tab, PO, l Tablet 12:55: Daily, # [place] [Plavix] 00 90 tab, 0 Refill(s), Pharmacy: [facility] #[id number], 149.86, cm, 01/08/21 13:20:00 CDT, Height, 62.091, kg, 01/08/21 13:20:00 CDT, Weight tramadol 2020-0 Yes 50 mg = 1 Hossein diana hydrochlori 7-21 tab, PO, l de 50 MG 12:55: Q6H, PRN Lilian nn Oral Tablet 00 Pain, X 5 day, # 18 tab, 0 Refill(s), Pharmacy: [facility] #[id number], 149.86, cm, 01/08/21 13:20:00 CDT, Height, 62.091, kg, 01/08/21 13:20:00 CDT, Weight Thyroxine 2021-0 No Notes: Memori a 7-21 Take 1 l 11:30: hour Jesús 00 before or 2 hours after meal; Enteral feeds may interefere with the absorption of this medication . (Same as:Synthro id, Levothroid ) Thyroxine No Notes: Memori a 7-21 Take 1 l 11:30: hour [place] 00 before or 2 hours after meal; [...] a 7-21 Take 1 l 11:30: hour [place] 00 before or 2 hours after meal; Enteral feeds may interefere with the absorption of this medication . (Same as:Synthro id, Levothroid ) Thyroxine No Notes: Memori a 7-21 Take 1 l 11:30: hour [place] 00 before or 2 hours after meal; [...] Pepcid) Saline No Notes: Memoria Flush 0.9% 7- Same as: l 02:00: BD Posiflush Sterile [...] 0.9% 7-21 Same as: l 02:00: BD [place] 00 Posiflush Sterile gabapentin No Notes: Memor ia 7-21 (Same as: l 02:00: Neurontin) Melatonin No Notes: Memori a 7-21 (Same as: l 02:00: Melatonin) Labetalol No Notes: Memori a 7-20 (Same as: l 23:21: Normodyne, [place] 00 Trandate) Push over 2 minutes Give bolus over 2-3 minutes. Labetalol No Notes: Memori a 7-20 (Same as: l 23:21: Normodyne, [place] 00 Trandate) Push over 2 minutes Give bolus over 2-3 minutes. Labetalol No Notes: Memori a 7-20 (Same as: l 23:21: Normodyne, [place] 00 Trandate) Push over 2 minutes Give bolus over 2-3 minutes. Labetalol No Notes: Memori a 7-20 (Same as: l 23:21: Normodyne, [place] 00 Trandate) Push over 2 minutes Give bolus over 2-3 minutes. Labetalol No Notes: Memori a 7-20 (Same as: l 23:21: Normodyne, [place] 00 Trandate) Push over 2 minutes Give bolus over 2-3 minutes. Labetalol No Notes: Memori a 7-20 (Same as: l 23:21: Normodyne, Jesús 00 Trandate) Push over 2 minutes Give bolus over 2-3 minutes. Hydralazine No Notes: Hossein diana 7-20 (Same as: l 21:17: Apresoline Jesús ) Push over 5 minutes Hydralazine No Notes: Hossein diana 7-20 (Same as: l 21:17: Apresoline [place] ) Push over 5 minutes Hydralazine No Notes: Hossein diana 7-20 (Same as: l 21:17: Apresoline Jesús ) Push over 5 minutes Hydralazine No Notes: Hossein diana 7-20 (Same as: l 21:17: Apresoline [place] ) Push over 5 minutes Hydralazine No Notes: Hossein diana 7-20 (Same as: l 21:17: Apresoline [place] ) Push over 5 minutes Hydralazine No Notes: Hossein diana 7-20 (Same as: l 21:17: Apresoline [place] ) Push over 5 minutes Hydralazine No Notes: Hossein diana 7-20 (Same as: l 21:11: Apresoline [place] ) May interfere w/enteral feedings. Take With Food Amlodipine No Notes: Memor ia 7-20 (Same as: l 21:11: Norvasc) [place] Hydralazine No Notes: Hossein diana 7-20 (Same as: l 21:11: Apresoline Jesús ) May interfere w/enteral feedings. Take With Food Amlodipine No Notes: Memor ia 7-20 (Same as: l 21:11: Norvasc) [place] Hydralazine No Notes: Hossein diana 7-20 (Same as: l 21:11: Apresoline Jesús ) May interfere w/enteral feedings. Take With Food Amlodipine No Notes: Memor ia 7-20 (Same as: l 21:11: Norvasc) Jesús Hydralazine No Notes: Hossein diana 7-20 (Same as: l 21:11: Apresoline Jesús ) May interfere w/enteral feedings. Take With Food Amlodipine 2020-0 No Notes: Memor ia 7-20 (Same as: l 21:11: Norvasc) Jesús 00 Hydralazine No Notes: Hossein diana 7-20 (Same as: l 21:11: Apresoline Jesús ) May interfere w/enteral feedings. Take With Food Amlodipine 2020-0 No Notes: Memor ia 7-20 (Same as: l 21:11: Norvasc) [place] 00 Hydralazine No Notes: Hossein diana 7-20 (Same as: l 21:11: Apresoline [place] ) May interfere w/enteral feedings. Take With Food Amlodipine 2020-0 No Notes: Memor ia 7-20 (Same as: l 21:11: Norvasc) ceFAZolin + No Notes: Hossein diana sterile 7-20 (Same As: l water 20 mL 21:00: Ancef, Herm karina Kefzol) MEDICATION WASTE Product Size: 1000 mg Product Wasted: ___ mg ceFAZolin + 2020-0 No Notes: Hossein diana sterile 7-20 (Same As: l water 20 mL 21:00: Ancef, Herm karina Kefzol) MEDICATION WASTE Product [...] ceFAZolin + No Notes: Hossein diana sterile 01-13 (Same As: l water 20 mL 21:00: Ancef, Herm karina 00 Kefzol) MEDICATION WASTE Product Size: 1000 mg Product Wasted: ___ mg Acetaminoph No Notes: Hossein diana en 325 MG / 01-13 (Same as: l Hydrocodone 16:57: Tram Lilian nn Bitartrate 00 325/5) Do 5 MG Oral not exceed Tablet 4gm/day of [Tram acetaminop 5/325] hen. Acetaminoph No Notes: Hossein diana en 325 MG / 01-13 (Same as: l Hydrocodone 16:57: Tram Lilian nn Bitartrate 00 325/5) Do 5 MG Oral not exceed Tablet 4gm/day of [Tram acetaminop 5/325] hen. Acetaminoph No Notes: Hossein diana en 325 MG / 01-13 (Same as: l Hydrocodone 16:57: Tram Lilian nn Bitartrate 00 325/5) Do 5 MG Oral not exceed Tablet 4gm/day of [Tram acetaminop 5/325] hen. Acetaminoph No Notes: Hossein diana en 325 MG / 20 (Same as: l Hydrocodone 16:57: Tram Lilian nn Bitartrate 00 325/5) Do 5 MG Oral not exceed Tablet 4gm/day of [Tram acetaminop 5/325] hen. Acetaminoph No Notes: Hossein diana en 325 MG / 20 (Same as: l Hydrocodone 16:57: Tram Lilian nn Bitartrate 00 325/5) Do 5 MG Oral not exceed Tablet 4gm/day of [Tram acetaminop 5/325] hen. Acetaminoph No Notes: Hossein diana en 325 MG / 20 (Same as: l Hydrocodone 16:57: Tram Lilian nn Bitartrate 00 325/5) Do 5 MG Oral not exceed Tablet 4gm/day of [Tram acetaminop 5/325] hen. Sodium 2021-0 No 1,000 mL, Memori a Chloride 7-20 Rate: 125 l 0.45% IV 16:55: ml/hr, [place] 1,000 mL 00 Infuse over: 8 hr, Route: IV, Dosing Weight 62.091 kg, Total Volume: 1,000, Start date: 01/13/21 11:55:00 CDT, Duration: 12 hr, Stop date: 01/13/21 23:54:00 CDT, BSA: 1.63 m2, 0 Sodium 2021-0 No 1,000 mL, Memori a Chloride 7-20 Rate: 125 l 0.45% IV 16:55: ml/hr, [place] 1,000 mL 00 Infuse over: 8 hr, Route: IV, Dosing Weight 62.091 kg, Total Volume: 1,000, Start date: 01/13/21 11:55:00 CDT, Duration: 12 hr, Stop date: 01/13/21 23:54:00 CDT, BSA: 1.63 m2, 0 Sodium 2021-0 No 1,000 mL, Memori a Chloride 7-20 Rate: 125 l 0.45% IV 16:55: ml/hr, [place] 1,000 mL 00 Infuse over: 8 hr, Route: IV, Dosing Weight 62.091 kg, Total Volume: 1,000, Start date: 01/13/21 11:55:00 CDT, Duration: 12 hr, Stop date: 01/13/21 23:54:00 CDT, BSA: 1.63 m2, 0 Sodium 2021-0 No 1,000 mL, Memori a Chloride 7-20 Rate: 125 l 0.45% IV 16:55: ml/hr, Jesús 1,000 mL 00 Infuse over: 8 hr, Route: IV, Dosing Weight 62.091 kg, Total Volume: 1,000, Start date: 01/13/21 11:55:00 CDT, Duration: 12 hr, Stop date: 01/13/21 23:54:00 CDT, BSA: 1.63 m2, 0 Sodium 2021-0 No 1,000 mL, Memori a Chloride 7-20 [...] oria 7-20 to exceed l 16:54: 400mg/day. [place] (Same As: Ultram) gabapentin No Notes: Memor ia 7-20 (Same as: l 16:54: Neurontin) Tramadol No Notes: Not Mem oria 7-20 to exceed l 16:54: 400mg/day. Jesús 00 (Same As: Ultram) gabapentin No Notes: Memor ia 7-20 (Same as: l 16:54: Neurontin) [place] 00 Tramadol No Notes: Not Mem oria 7-20 to exceed l 16:54: 400mg/day. [place] 00 (Same As: Ultram) gabapentin No Notes: Memor ia 7-20 (Same as: l 16:54: Neurontin) [place] 00 Tramadol No Notes: Not Mem oria 7-20 to exceed l 16:54: 400mg/day. [place] 00 (Same As: Ultram) gabapentin No Notes: Memor ia 7-20 (Same as: l 16:54: Neurontin) Jesús 00 Tramadol No Notes: Not Mem oria 7-20 to exceed l 16:54: 400mg/day. Jesús 00 (Same As: Ultram) gabapentin No Notes: Memor [...] Albuterol No Notes: Memori a 0.833 MG/ML 01-13 (Same as: l / 16:51: Duoneb) Ipratropium 00 [place] 0.167 MG/ML Inhalant Solution Saline No Notes: Memoria Flush 0.9% -20 Same as: l 16:51: BD Posiflush Sterile Potassium No Notes: Memori a Chloride -20 (Same as: l 16:51: KCL) 10 [place] 00 mEq/100ml product recommende d for peripheral line administra tion. Infuse no faster than 10 mEq/hr if given peripheral ly. sodium No Notes: Memoria phosphate 7-20 Infuse l 16:51: over 4 00 hour. Do not infuse phosphorou s [...] as: l 16:51: Mag-Ox 400) Magnesium oxide 590ce=883f g elemental magnesium Dose=____m g magnesium oxide [...] as: l / 16:51: Duoneb) Ipratropium 00 [place] 0.167 MG/ML Inhalant Solution Saline No Notes: [...] 7-20 (Same as: l odium 16:51: Phos-NaK) phosphate 00 Each 1.5 250 mg-280 gm pkt has mg-160 mg 250mg oral powder phosphorou for s. Mix reconstitut w/2.5oz ion water and stir. Magnesium No Notes: Memori a Sulfate 7-20 WASTE: F/P l 16:51: - Sink; E - Municipal Trash Bin Magnesium No Notes: Memori a Oxide 7-20 (Same as: l 16:51: Mag-Ox [place] 00 400) Magnesium oxide 136bf=916f g elemental magnesium Dose=____m g magnesium oxide (___mg elemental magnesium) Calcium No Notes: Memoria Gluconate 7-20 WASTE: F/P l 16:51: - Sink; E [place] - Municipal Trash Bin calcium No Notes: [...] as: l / 16:51: Duoneb) Ipratropium 00 [place] 0.167 MG/ML Inhalant Solution Saline No Notes: [...] -20 (Same as: l odium 16:51: Phos-NaK) phosphate 00 Each 1.5 250 mg-280 gm pkt has mg-160 mg 250mg oral powder phosphorou for s. Mix reconstitut w/2.5oz ion water and stir. Magnesium No Notes: Memori a Sulfate 01-13 WASTE: F/P l 16:51: - Sink; E - [facility] Trash Bin Magnesium No Notes: Memori a Oxide -20 (Same as: l 16:51: Mag-Ox 400) Magnesium oxide 945nc=992c g elemental magnesium Dose=____m g magnesium oxide (___mg elemental magnesium) Calcium No Notes: Memoria Gluconate 01-13 WASTE: F/P l 16:51: - Sink; E - [facility] Trash Bin calcium No Notes: Memoria carbonate - (Same As: l 500 mg (200 16:51: Tums) Lilian nn mg 00 Calcium elemental Carbonate calcium) 500 mg = oral tablet 200 mg elemental calcium Dose = mg calcium carbonate ( mg elemental calcium) Acetaminoph No 100.4 F, M emoria en - Start l 16:51: date: 01/13/21 11:51:00 CDT, Duration: 30 day, Stop date: 02/12/21 11:50:00 CDT Albuterol No Notes: Memori a 0.833 MG/ML - (Same as: l / 16:51: Duoneb) Ipratropium 00 [place] 0.167 MG/ML Inhalant Solution Saline No Notes: [...] stir. Magnesium No Notes: Memori a Sulfate 7- WASTE: F/P l 16:51: - Sink; E [place] - [facility] Trash Bin Magnesium No Notes: Memori a Oxide 7-20 (Same as: l 16:51: Mag-Ox [place] 00 400) Magnesium oxide 468qb=827g g elemental magnesium Dose=____m g magnesium oxide (___mg elemental magnesium) Calcium No Notes: Memoria Gluconate 7-20 WASTE: F/P l 16:51: - Sink; E [place] - [facility] Trash Bin calcium No Notes: Memoria carbonate 7-20 (Same As: l 500 mg (200 16:51: Tums) Lilian nn mg 00 Calcium elemental Carbonate calcium) 500 mg = oral tablet 200 mg elemental calcium Dose = mg calcium carbonate ( mg elemental calcium) Acetaminoph No 100.4 F, M emoria en 7-20 Start l 16:51: date: [place] 00 01/13/21 11:51:00 CDT, Duration: 30 day, Stop date: 02/12/21 11:50:00 CDT Albuterol No Notes: Memori a 0.833 MG/ML 7-20 (Same as: l / 16:51: Duoneb) Ipratropium 00 [place] 0.167 MG/ML Inhalant Solution Saline No Notes: Memoria Flush 0.9% 7-20 Same as: l 16:51: BD Posiflush Sterile Potassium No Notes: Memori a Chloride 7-20 (Same as: l 16:51: KCL) 10 mEq/100ml product recommende d for peripheral line administra tion. Infuse no faster than 10 mEq/hr if given peripheral ly. sodium No Notes: Memoria phosphate 7-20 Infuse l 16:51: over 4 hour. Do not infuse phosphorou s concurrent [...] 7-20 (Same as: l odium 16:51: Phos-NaK) [place] phosphate 00 Each 1.5 250 mg-280 gm pkt has mg-160 mg 250mg oral powder phosphorou for s. Mix reconstitut w/2.5oz ion water and stir. Magnesium No Notes: Memori a Sulfate 7-20 WASTE: F/P l 16:51: - Sink; E - [facility] Trash Bin Magnesium No Notes: Memori a Oxide 7-20 (Same as: l 16:51: Mag-Ox [place] 00 400) Magnesium oxide 321sw=323y g elemental magnesium Dose=____m g magnesium oxide [...] en 7-20 Start l 16:51: date: Jesús 01/13/21 11:51:00 CDT, Duration: 30 day, Stop date: 02/12/21 11:50:00 CDT Albuterol No Notes: Memori a 0.833 MG/ML 7-20 (Same as: l / 16:51: Duoneb) Jesús Ipratropium 00 [place] 0.167 MG/ML Inhalant Solution Saline No Notes: Memoria Flush 0.9% 7-20 Same as: l 16:51: BD [place] Posiflush Sterile Potassium No Notes: Memori a Chloride 7-20 (Same as: l 16:51: KCL) 10 Jesús 00 mEq/100ml product recommende d for peripheral line administra tion. Infuse no faster than 10 mEq/hr if given peripheral ly. sodium No Notes: Memoria phosphate 7-20 Infuse l 16:51: over 4 [place] 00 hour. Do not infuse phosphorou s concurrent ly in the same line as TPN or IVF that contains calcium. For double lumen central lines, phosphorou s may be infused in a separate lumen from TPN. potassium No Notes: Memori a phosphate 7-20 (Same as: l 16:51: K [place] Phosphate. ) Do not infuse phosphorou s concurrent ly in the same line as TPN or IVF that contains calcium. For double lumen central lines, phosphorou s may be infused in a separate lumen from TPN. 1 mMol phoshate has 1.47 mEq potassium Infuse over 4 hours potassium No Notes: Memori a phosphate-s 7-20 (Same as: l odium 16:51: Phos-NaK) [place] phosphate 00 Each 1.5 250 mg-280 gm pkt has mg-160 mg 250mg oral powder phosphorou for s. Mix reconstitut w/2.5oz ion water and stir. Magnesium No Notes: Memori a Sulfate 01-13 WASTE: F/P l 16:51: - Sink; E [place] 00 - [facility] Trash Bin Magnesium No Notes: Memori a Oxide 01-13 (Same as: l 16:51: Mag-Ox [place] 00 400) Magnesium oxide 079fn=389b g elemental magnesium Dose=____m g magnesium oxide (___mg elemental magnesium) Calcium No Notes: Memoria Gluconate 01-13 WASTE: F/P l 16:51: - Sink; E [place] 00 - [facility] Trash Bin calcium No Notes: Memoria carbonate 01-13 (Same As: l 500 mg (200 16:51: Tums) Lilian nn mg 00 Calcium elemental Carbonate calcium) 500 mg = oral tablet 200 mg elemental calcium Dose = mg calcium carbonate ( mg elemental calcium) Dilaudid No 0.5 mg, Memori a -20 Route: l 16:43: IVP, ONCE, Dosing Weight 62.091, kg, Priority: STAT, Start date: 01/13/21 11:43:00 CDT, Stop date: 01/13/21 11:43:00 CDT Dilaudid No 0.5 mg, Memori a 7-20 Route: l 16:43: IVP, ONCE, Dosing Weight 62.091, kg, Priority: STAT, Start date: 01/13/21 11:43:00 CDT, Stop date: 01/13/21 11:43:00 CDT Dilaudid No 0.5 mg, Memori a 7-20 Route: l 16:43: IVP, ONCE, Dosing Weight 62.091, kg, Priority: STAT, Start date: 01/13/21 11:43:00 CDT, Stop date: 01/13/21 11:43:00 CDT Dilaudid No 0.5 mg, Memori a 7-20 Route: [...] niCARdipine 2020-0 No Route: IV, Memoria (ANES) - Drug form: l 16:08: INJ, ONCE, Stop date: 01/13/21 11:08:00 CDT neostigmine 2020-0 No Route: IV, Memoria (ANES) - Drug form: l 16:08: INJ, ONCE, Stop date: 01/13/21 11:08:00 CDT ondansetron 2020-0 No Route: IV, Memoria (ANES) - Drug form: l 16:08: INJ, [...] niCARdipine 2020-0 No Route: IV, Memoria (ANES) - Drug form: l 16:08: INJ, ONCE, Stop date: 01/13/21 11:08:00 CDT neostigmine 2020-0 No Route: IV, Memoria (ANES) - Drug form: l 16:08: INJ, ONCE, Stop date: 01/13/21 11:08:00 CDT ondansetron 2020-0 No Route: IV, Memoria (ANES) - Drug form: l 16:08: INJ, ONCE, Stop date: 01/13/21 11:08:00 CDT norepinephr 2020-0 No Route: IV, Memoria ine (ANES) 01-13 Drug form: l 16:08: INJ, ONCE, Stop date: 01/13/21 11:08:00 CDT niCARdipine 2020-0 No Route: IV, Memoria (ANES) - Drug form: l 16:08: INJ, ONCE, Stop date: 01/13/21 11:08:00 CDT neostigmine 2020-0 No Route: IV, Memoria (ANES) - Drug form: l 16:08: INJ, ONCE, Stop date: 01/13/21 11:08:00 CDT ondansetron 2020-0 No Route: IV, Memoria (ANES) - Drug form: l 16:08: INJ, ONCE, Stop date: 01/13/21 11:08:00 CDT protamine 2020-0 No Route: IV, Me moria (ANES) - Drug form: l 15:42: INJ, ONCE, Stop date: 01/13/21 10:42:00 CDT protamine 0 No Route: IV, Me moria (ANES) 7-20 Drug form: l 15:42: INJ, ONCE, Stop date: 01/13/21 10:42:00 CDT protamine 0 No Route: IV, Me moria (ANES) 7-20 Drug form: l 15:42: INJ, ONCE, Stop date: 01/13/21 10:42:00 CDT protamine 0 No Route: IV, Me moria (ANES) 7-20 Drug form: l 15:42: INJ, ONCE, Stop date: 01/13/21 10:42:00 CDT protamine No Route: IV, Me moria (ANES) 7-20 Drug form: l 15:42: INJ, ONCE, Stop date: 01/13/21 10:42:00 CDT protamine 0 No Route: IV, Me moria (ANES) 7-20 Drug form: l 15:42: INJ, ONCE, Stop date: 01/13/21 10:42:00 CDT niCARdipine 0 No Route: IV, Memoria [...] heparin No Route: IV, Hossein diana (ANES) 7-20 Drug form: l 14:21: INJ, ONCE, Stop date: 01/13/21 9:21:00 CDT heparin No Route: IV, Hossein diana (ANES) 7-20 Drug form: l 14:21: INJ, ONCE, Stop date: 01/13/21 9:21:00 CDT heparin No Route: IV, Hossein diana (ANES) 7-20 Drug form: l 14:21: INJ, ONCE, Stop date: 01/13/21 9:21:00 CDT heparin No Route: IV, Hossein diana (ANES) 7-20 [...] ONCE, Stop date: 01/13/21 9:06:00 CDT glycopyrrol 0 No Route: IV, Memoria ate (ANES) 7-20 Drug form: l 14:06: INJ, ONCE, Stop date: 01/13/21 9:06:00 CDT ePHEDrine 2020-0 No Route: IV, Me moria (ANES) 7-20 Drug form: l 14:06: INJ, ONCE, Stop date: 01/13/21 9:06:00 CDT glycopyrrol 0 No Route: IV, Memoria ate (ANES) 7-20 Drug form: l 14:06: INJ, ONCE, Stop date: 01/13/21 9:06:00 CDT ePHEDrine 2020-0 No Route: IV, Me moria (ANES) 7-20 Drug form: l 14:06: INJ, ONCE, Stop date: 01/13/21 9:06:00 CDT glycopyrrol 2020-0 No Route: IV, Memoria ate (ANES) 7-20 Drug form: l 14:06: INJ, ONCE, Stop date: 01/13/21 9:06:00 CDT ePHEDrine 0 No Route: IV, Me moria (ANES) 7-20 Drug form: l 14:06: INJ, ONCE, Stop date: 01/13/21 9:06:00 CDT glycopyrrol 2020-0 No Route: IV, Memoria ate (ANES) 7-20 Drug form: l 14:06: INJ, ONCE, Stop date: 01/13/21 9:06:00 CDT ePHEDrine 2020-0 No Route: IV, Me moria (ANES) 7-20 Drug form: l 14:06: INJ, ONCE, Stop date: 01/13/21 9:06:00 CDT glycopyrrol 0 No Route: IV, Memoria ate (ANES) 7-20 Drug form: l 14:06: INJ, ONCE, Stop date: 01/13/21 9:06:00 CDT ePHEDrine 2020-0 No Route: IV, Me moria (ANES) 7-20 Drug form: l 14:06: INJ, ONCE, Stop date: 01/13/21 9:06:00 CDT Vitamin C 0 No Notes: Memori a 7-20 (Same as: l 14:00: Vitamin C) Jesús 00 Vitamin B12 No Notes: Hossein diana 7-20 (Same As: l 14:00: Vitamin B12) Labetalol No Notes: Memori a 7-20 With food. l 14:00: (Same as:Trandat e, Normodyne) Fish Oil No Notes: Memoria 7-20 (Same as: l 14:00: MaxEPA, [place] 3 fish oil ) Vitamin C No Notes: Memori a 7-20 (Same as: l 14:00: Vitamin C) Vitamin B12 No Notes: Hossein diana 7-20 (Same As: l 14:00: Vitamin B12) Labetalol No Notes: Memori a 7-20 With food. l 14:00: (Same as:Trandat e, Normodyne) Fish Oil No Notes: Memoria 7-20 (Same as: l 14:00: MaxEPA, [place] 3 fish oil ) Vitamin C No Notes: Memori a 7-20 (Same as: l 14:00: Vitamin C) Vitamin B12 No Notes: Hossein diana 7-20 (Same As: l 14:00: Vitamin B12) Labetalol No Notes: Memori a 7-20 With food. l 14:00: (Same as:Trandat e, Normodyne) Fish Oil No Notes: Memoria 7-20 (Same as: l 14:00: MaxEPA, [place] 3 fish oil ) Vitamin C No Notes: Memori a 7-20 (Same as: l 14:00: Vitamin C) Vitamin B12 No Notes: Hossein diana 7-20 (Same As: l 14:00: Vitamin B12) Labetalol No Notes: Memori a 7-20 With food. l 14:00: (Same as:Trandat e, Normodyne) Fish Oil No Notes: Memoria 7-20 (Same as: l 14:00: MaxEPA, [place] 3 fish oil ) Vitamin C No Notes: Memori a 7-20 (Same as: l 14:00: Vitamin C) Vitamin B12 No Notes: Hossein diana 7-20 (Same As: l 14:00: Vitamin B12) Labetalol No Notes: Memori a 7-20 With food. l 14:00: (Same as:Trandat e, Normodyne) Fish Oil No Notes: Memoria 7-20 (Same as: l 14:00: MaxEPA, [place] 3 fish oil ) Vitamin C No Notes: Memori a 7-20 (Same as: l 14:00: Vitamin C) Vitamin B12 No Notes: Hossein diana 7-20 (Same As: l 14:00: Vitamin B12) Labetalol No Notes: Memori a 7-20 With food. l 14:00: (Same as:Trandat e, Normodyne) Fish Oil No Notes: Memoria 7-20 (Same as: l 14:00: MaxEPA, [place] 3 fish oil ) fentaNYL No Route: IV, Mem oria (ANES) 7-20 Drug form: l 13:45: INJ, ONCE, Stop date: 01/13/21 8:45:00 CDT propofol No Route: IV, Mem oria (ANES) 7-20 Drug form: l 13:45: INJ, ONCE, Stop date: 01/13/21 8:45:00 CDT rocuronium No Route: IV, M emoria (ANES) 7-20 Drug form: l 13:45: INJ, ONCE, Stop date: 01/13/21 8:45:00 CDT lidocaine No Route: IV, Me moria (ANES) 7-20 [...] 2020-0 No Route: IV, M emoria (ANES) 7- Drug form: l 13:45: INJ, [...] ceFAZolin No Route: IV, Me moria (ANES) 01-13 Drug form: l 13:40: INJ, ONCE, Stop date: 01/13/21 8:40:00 CDT ceFAZolin No Route: IV, moria (ANES) 01-13 Drug form: l 13:40: INJ, ONCE, Stop [...] No Route: IV, Memoria l (ANES) 1 - Drug form: l mg 13:36: INJ, Start [place] 00 date: 01/13/21 8:36:00 CDT, Stop date: 01/13/21 9:36:00 CDT norepinephr 2020-0 No Route: IV, Memoria ine (ANES) - Drug form: l 10 13:07: INJ, Start Jesús microgram date: 01/13/21 8:07:00 CDT, Stop date: 01/13/21 9:07:00 CDT norepinephr 2020-0 No Route: IV, Memoria ine (ANES) 7- Drug form: l 10 13:07: INJ, Start Jesús microgram date: 01/13/21 8:07:00 CDT, Stop date: 01/13/21 9:07:00 CDT norepinephr 2020-0 No Route: IV, Memoria ine (ANES) 7- Drug form: l 10 13:07: INJ, Start [...] CDT, Stop date: 01/13/21 9:07:00 CDT Hydralazine 2020-0 No Notes: Hossein diana Hydrochlori - (Same as: l de 50 MG 12:58: [...] Rate: 125 l 0.45% IV 12:51: ml/hr, [place] 1,000 mL 00 Infuse over: 8 hr, Route: IV, Dosing Weight 62.091 kg, Total Volume: 1,000, Start date: 01/13/21 7:51:00 CDT, Duration: 30 day, Stop date: 02/12/21 7:50:00 CDT, BSA: 1.63 m2, 0 Saline No Notes: Memoria Flush 0.9% 7-20 (Same as: l 12:51: BD [place] 00 Posiflush) Sodium No 1,000 mL, Memori a Chloride 7-20 Rate: 125 l 0.45% IV 12:51: ml/hr, Jesús 1,000 mL 00 Infuse over: 8 hr, Route: IV, Dosing Weight 62.091 kg, Total Volume: 1,000, Start date: 01/13/21 7:51:00 CDT, Duration: 30 day, Stop date: 02/12/21 7:50:00 CDT, BSA: 1.63 m2, 0 Saline 2020-0 No Notes: Memoria Flush 0.9% 7-20 (Same as: l 12:51: BD [place] 00 Posiflush) Sodium 2020-0 No 1,000 mL, [...] 0.9% 7-20 (Same as: l 12:51: BD [place] 00 Posiflush) Sodium 0 No 1,000 mL, Memori a Chloride 7-20 Rate: 125 l 0.45% IV 12:51: ml/hr, Jesús 1,000 mL 00 Infuse over: 8 hr, Route: IV, Dosing Weight 62.091 kg, Total Volume: 1,000, Start date: 01/13/21 7:51:00 CDT, Duration: 30 day, Stop date: 02/12/21 7:50:00 CDT, BSA: 1.63 m2, 0 Saline 2020-0 No Notes: Memoria Flush 0.9% 7-20 (Same as: l 12:51: BD [place] 00 Posiflush) Sodium 0 No 1,000 mL, Memori a Chloride 7-20 Rate: 125 l 0.45% IV 12:51: ml/hr, [place] 1,000 mL 00 Infuse over: 8 hr, [...] 0.9% 7-20 (Same as: l 12:51: BD [place] 00 Posiflush) Isolyte S No Route: IV, [...] 7-20 Total l 0.9% IV 12:46: Volume: [place] (ANES) 500 00 500, Start mL date: 01/13/21 7:46:00 CDT, Stop date: 01/13/21 8:46:00 CDT Sodium 2020-0 No Route: IV, Memor ia Chloride 7-20 Total l 0.9% IV 12:46: Volume: [place] (ANES) 500 00 500, Start mL date: 01/13/21 7:46:00 CDT, Stop date: 01/13/21 8:46:00 CDT Sodium 202-0 No Route: IV, Memor ia Chloride 7-20 Total l 0.9% IV 12:46: Volume: [place] (ANES) 500 00 500, Start mL date: [...] mg Cefazolin 2020-0 No Notes: Memori a -15 (Same As: l 19:00: Ancef, Jesús 00 Kefzol) MEDICATION WASTE Product Size: 1000 mg Product Wasted: ___ mg Cefazolin 2020-0 No Notes: Memori a 01-08 (Same As: l 19:00: Ancef, [place] 00 Kefzol) MEDICATION WASTE Product Size: 1000 mg Product Wasted: ___ mg Cefazolin 2020-0 No Notes: Memori a 01-08 (Same As: l 19:00: Ancef, Jesús 00 Kefzol) MEDICATION WASTE Product Size: 1000 mg Product Wasted: ___ mg Cefazolin 2020-0 No Notes: Memori a 01-08 (Same As: l 19:00: Ancef, Jesús 00 Kefzol) MEDICATION WASTE Product Size: 1000 mg Product Wasted: ___ mg Cefazolin 2020-0 No Notes: Memori a 15 (Same As: l 19:00: Ancef, [place] 00 Kefzol) MEDICATION WASTE Product Size: 1000 mg Product Wasted: ___ mg Restoril 2020-0 No Notes: Memoria 01-08 (Same As: l 18:19: Restoril) [place] 00 [facility] 3:Reproduc tive risk Hazardous Drug -- Refer to safe handling procedure PPE Matrix Sodium No 250 mL, Memoria Chloride 01-08 Rate: To l 0.9% 18:19: prime line Jesús (titrate) 00 and flush 250 mL remaining blood products., Dosing Weight 63.364, kg, Route: IV, Total Volume: 250, Priority: Routine, Start Date: 01/08/21 13:19:00 CDT, Duration: 1 day, Stop date: 01/09/21 13:18:00 CDT, Replace Every: 24 hr, 0 Restoril No Notes: Memoria 7-15 (Same As: l 18:19: Restoril) [place] [facility] 3:Reproduc tive risk Hazardous [...] Sodium 0 No 250 mL, Memoria Chloride 7-15 Rate: To l 0.9% 18:19: prime line [place] (titrate) 00 and flush 250 mL remaining blood products., Dosing Weight 63.364, kg, Route: IV, Total Volume: 250, Priority: Routine, Start Date: 01/08/21 13:19:00 CDT, Duration: 1 day, Stop date: 01/09/21 13:18:00 CDT, Replace Every: 24 hr, 0 Restoril No Notes: Memoria 7-15 (Same As: l 18:19: Restoril) [place] [facility] 3:Reproduc tive risk Hazardous Drug -- Refer to safe handling procedure PPE Matrix Sodium 0 No 250 mL, Memoria Chloride 7-15 Rate: To l 0.9% 18:19: prime line Jesús (titrate) 00 and flush 250 mL remaining blood products., Dosing Weight 63.364, kg, Route: IV, Total Volume: 250, Priority: Routine, Start Date: 01/08/21 13:19:00 CDT, Duration: 1 day, Stop date: 01/09/21 13:18:00 CDT, Replace Every: 24 hr, 0 Restoril 2020-0 No Notes: Memoria 7-15 (Same As: l 18:19: Restoril) [place] [facility] 3:Reproduc tive risk Hazardous Drug -- Refer to safe handling procedure PPE Matrix Sodium 0 No 250 mL, Memoria Chloride 7-15 Rate: To l 0.9% 18:19: prime line [place] (titrate) 00 and flush 250 mL remaining blood products., Dosing Weight 63.364, kg, Route: IV, Total Volume: 250, Priority: Routine, Start Date: 01/08/21 13:19:00 CDT, Duration: 1 day, Stop date: 01/09/21 13:18:00 CDT, Replace Every: 24 hr, 0 Restoril 0 No Notes: Memoria 7-15 (Same As: l 18:19: Restoril) Jes[place] [facility] 3:Reproduc tive risk Hazardous Drug -- Refer to safe handling procedure PPE Matrix Sodium 0 No 250 mL, Memoria Chloride 7-15 Rate: [...] [place] oral tablet 00 PO, Daily levothyroxi 0 Yes 75 Memori a ne 75 mcg [...] diana 5-06 (Same As: l 14:00: Vitamin [place] B12) Vitamin B12 No Notes: Hossein diana 5-06 (Same As: l 14:00: Vitamin [place] 00 B12) Vitamin B12 No Notes: Hossein diana 5-06 (Same As: l 14:00: Vitamin [place] 00 B12) Vitamin B12 No Notes: Hossein diana 5-06 (Same As: l 14:00: Vitamin [place] 00 B12) Vitamin B12 No Notes: Hossein diana 5-06 (Same As: l 14:00: Vitamin [place] B12) Vitamin B12 No Notes: Hossein diana 5-06 (Same As: l 14:00: Vitamin [place] 00 B12) Labetalol 0 No 100 mg, 1 Mem oria 5-06 tab, l 02:00: Route: PO, Jesús 00 Drug form: TAB, Q12H, Dosing Weight 63.364, kg, Start date: 10/29/20 21:00:00 CDT, Duration: 30 day, Stop date: 11/28/20 9:00:00 CDT Labetalol 2020-0 No 100 mg, 1 Mem oria 5-06 tab, l 02:00: Route: PO, Jesús 00 Drug form: TAB, Q12H, Dosing Weight 63.364, kg, Start date: 10/29/20 21:00:00 CDT, Duration: 30 day, Stop date: 11/28/20 9:00:00 CDT Labetalol 2020-0 No 100 mg, 1 Mem oria 5-06 tab, l 02:00: Route: PO, [place] 00 Drug form: TAB, Q12H, Dosing Weight 63.364, kg, Start date: 10/29/20 21:00:00 CDT, Duration: 30 day, Stop date: 11/28/20 9:00:00 CDT Labetalol 2020-0 No 100 mg, 1 Mem oria 5-06 tab, l 02:00: Route: PO, Jesú[place] 00 Drug form: TAB, Q12H, Dosing Weight 63.364, kg, Start date: 10/29/20 21:00:00 CDT, Duration: 30 day, Stop date: 11/28/20 9:00:00 CDT Labetalol 2020-0 No 100 mg, 1 Mem oria 5-06 tab, l 02:00: Route: PO, [place] 00 Drug form: TAB, Q12H, Dosing Weight 63.364, kg, Start date: 10/29/20 21:00:00 CDT, Duration: 30 day, Stop date: 11/28/20 9:00:00 CDT Labetalol 2020-0 No 100 mg, 1 Mem oria 5-06 tab, l 02:00: Route: PO, Drug form: TAB, Q12H, Dosing Weight 63.364, kg, Start date: 10/29/20 21:00:00 CDT, Duration: 30 day, Stop date: 11/28/20 9:00:00 CDT Vitamin C No Notes: Memori a 5-05 (Same as: l 22:00: Vitamin C) Fish Oil No Notes: Memoria 5-05 (Same as: l 22:00: MaxEPA, [place] 3 fish oil ) Vitamin C No Notes: Memori a 5-05 (Same as: l 22:00: Vitamin C) Fish Oil No Notes: Memoria 5-05 (Same as: l 22:00: MaxEPA, [place] 3 fish oil ) Vitamin C No Notes: Memori a 5-05 (Same as: l 22:00: Vitamin C) Fish Oil No Notes: Memoria 5-05 (Same as: l 22:00: MaxEPA, [place] 3 fish oil ) Vitamin C No Notes: Memori a 5-05 (Same as: l 22:00: Vitamin C) Fish Oil No Notes: Memoria 5-05 (Same as: l 22:00: MaxEPA, [place] 3 fish oil ) Vitamin C No Notes: Memori a 5-05 (Same as: l 22:00: Vitamin C) Fish Oil No Notes: Memoria 5-05 (Same as: l 22:00: MaxEPA, [place] 3 fish oil ) Vitamin C No Notes: Memori a 5-05 (Same as: l 22:00: Vitamin C) Fish Oil No Notes: Memoria 5-05 (Same as: l 22:00: MaxEPA, [place] 3 fish oil ) tramadol Yes 50 mg = 1 Hossein diana hydrochlori 5-05 tab, PO, l de 50 MG 19:36: Q6H, PRN Lilian nn Oral Tablet 00 Pain, X 5 day, # 18 tab, 0 Refill(s), Pharmacy: [id number], 149.86, cm, 10/24/20 13:06:00 CDT, Height, 63.364, kg, 10/24/20 13:06:00 CDT, Weight tramadol Yes 50 mg = 1 Hossein diana hydrochlori 5-05 tab, PO, l de 50 MG 19:36: Q6H, PRN Lilian nn Oral Tablet 00 Pain, X 5 day, # 18 tab, 0 Refill(s), Pharmacy: [facility] #[id number], 149.86, cm, 10/24/20 13:06:00 CDT, Height, 63.364, kg, 10/24/20 13:06:00 CDT, Weight tramadol Yes 50 mg = 1 Hossein diana hydrochlori 5-05 tab, PO, l de 50 MG 19:36: Q6H, PRN Lilian nn Oral Tablet 00 Pain, X 5 day, # 18 tab, 0 Refill(s), Pharmacy: [facility] #[id number], 149.86, cm, 10/24/20 13:06:00 CDT, Height, 63.364, kg, 10/24/20 13:06:00 CDT, Weight tramadol Yes 50 mg = 1 Hossein diana hydrochlori 5-05 tab, PO, l de 50 MG 19:36: Q6H, PRN Lilian nn Oral Tablet 00 Pain, X 5 day, # 18 tab, 0 Refill(s), Pharmacy: [facility] #[id number], 149.86, cm, 10/24/20 13:06:00 CDT, Height, 63.364, kg, 10/24/20 13:06:00 CDT, Weight tramadol Yes 50 mg = 1 Hossein diana hydrochlori 5-05 tab, PO, l de 50 MG 19:36: Q6H, PRN Lilian nn Oral Tablet 00 Pain, X 5 day, # 18 tab, 0 Refill(s), Pharmacy: [facility] #[id number], 149.86, cm, 10/24/20 13:06:00 CDT, Height, 63.364, kg, 10/24/20 13:06:00 CDT, Weight tramadol Yes 50 mg = 1 Hossein diana hydrochlori 5-05 tab, PO, l de 50 MG 19:36: Q6H, PRN Lilian nn Oral Tablet 00 Pain, X 5 day, # 18 tab, 0 Refill(s), Pharmacy: [facility] #[id number], 149.86, cm, 10/24/20 13:06:00 CDT, Height, [...] 5-05 not crush l 14:00: or chew. [place] 00 (Same As: Ecotrin) clopidogrel No Notes: [...] a 5-05 Take 1 l 11:30: hour [place] 00 before or 2 hours after meal; Enteral feeds may interefere with the absorption of this medication .(Same as:Levothr oid, Synthroid) Thyroxine No Notes: Memori a 5-05 Take 1 l 11:30: hour [place] 00 before or 2 hours after meal; Enteral feeds may interefere with the absorption of this medication .(Same as:Levothr oid, Synthroid) Thyroxine No Notes: Memori a 5-05 Take 1 l 11:30: hour [place] 00 before or 2 hours after meal; Enteral feeds may interefere with the absorption of this medication .(Same as:Levothr oid, Synthroid) Thyroxine No Notes: Memori a 5-05 Take 1 l 11:30: hour [place] 00 before or 2 hours after meal; [...] a 5-05 With food. l 02:00: (Same [place] 00 as:Trandat e, Normodyne) Simvastatin No Notes: [...] 5-05 (Same as: l 02:00: Zocor) Ondansetron 2020-0 No 4 mg, Memor ia 5-04 Route: IV, l 23:04: ONCE, Dosing Weight 63.364, kg, Start date: 10/28/20 18:04:00 CDT, Stop date: 10/28/20 18:04:00 CDT Ondansetron 2020-0 No 4 mg, Memor ia 5-04 Route: IV, l 23:04: ONCE, Dosing Weight 63.364, kg, Start date: 10/28/20 18:04:00 CDT, Stop date: 10/28/20 18:04:00 CDT Ondansetron 2020-0 No 4 mg, [place]or [place] 5-04 Route: IV, l 23:04: ONCE, Dosing Weight 63.364, kg, Start date: 10/28/20 18:04:00 CDT, Stop date: 10/28/20 18:04:00 CDT Ondansetron 1-0 No 4 mg, Memor ia 5-04 Route: IV, l 23:04: ONCE, [place] 00 Dosing Weight 63.364, kg, Start date: 10/28/20 18:04:00 CDT, Stop date: 10/28/20 18:04:00 CDT Ondansetron 2021-0 No 4 mg, Memor ia 5-04 Route: IV, l 23:04: ONCE, [place] 00 Dosing Weight 63.364, kg, Start date: 10/28/20 18:04:00 CDT, Stop date: 10/28/20 18:04:00 CDT Ondansetron 1-0 No 4 mg, Memor ia 5-04 Route: IV, l 23:04: ONCE, [place] 00 Dosing Weight 63.364, kg, Start date: 10/28/20 [...] diana 5-04 acetaminop l 23:00: hen 4000 [place] 00 mg/day (4 gm/day). (Same as: Tylenol Extra Strength) Tylenol 2020-0 No Notes: Max Hossein diana 5-04 acetaminop l 23:00: hen 4000 [place] 00 mg/day (4 gm/day). (Same as: Tylenol Extra Strength) ceFAZolin + 2020-0 No Notes: Hossein diana sterile 5-04 (Same As: l water 20 mL 23:00: Ancef, Herm karina 00 Kefzol) MEDICATION WASTE Product Size: 1000 mg Product Wasted: ___ mg Tylenol 2021-0 No Notes: Max Hossein diana 5-04 acetaminop l 23:00: hen 4000 [place] 00 mg/day (4 gm/day). (Same as: Tylenol [...] 5-04 (Same as: l 22:00: Apresoline Jesús 00 ) Push over 5 minutes Hydralazine 2020-0 No Notes: Hossein diana 5-04 (Same as: l 22:00: Apresoline [place] 00 ) Push over 5 minutes Hydralazine 2020-0 No Notes: Hossein diana 5-04 (Same as: l 22:00: Apresoline [place] 00 ) Push over 5 minutes Hydralazine 2020-0 No Notes: Hossein diana 5-04 (Same as: l 22:00: Apresoline ) Push over 5 minutes Hydralazine 2020-0 No Notes: Hossein diana 5-04 (Same as: l 22:00: Apresoline ) Push over 5 minutes Hydralazine 2020-0 No Notes: Hossein diana 5-04 (Same as: l 22:00: Apresoline ) Push over 5 minutes Sodium 2021-0 No 250 mL, Memoria Chloride 5-04 Route: l 0.9% IV 20:47: IVPB, [place] 00 Start date: 10/28/20 15:47:00 CDT, Duration: [...] 5-04 Route: l 0.9% IV 20:47: IVPB, [place] 00 Start date: 10/28/20 15:47:00 CDT, Duration: 30 day, Stop date: 11/27/20 15:46:00 CDT, PRN Line Flush, 0 Sodium 2021-0 No 250 mL, Memoria Chloride 5-04 Route: l 0.9% IV 20:47: IVPB, Jesús Start date: 10/28/20 15:47:00 CDT, Duration: 30 [...] oria 5-04 to exceed l 20:17: 400mg/day. [place] 00 (Same As: Ultram) Temazepam No Notes: [...] phosphate 5-04 (Same as: l 18:23: K Phosphate. ) Do not infuse phosphorou [...] Memori a Sulfate - WASTE: F/P l 18:23: - Sink; E [place] - Municipal Trash Bin Magnesium No Notes: Memori a Oxide - (Same as: l 18:23: Mag-Ox [place] 00 400) Magnesium oxide 923bs=777n g elemental magnesium Dose=____m g magnesium oxide (___mg elemental magnesium) Calcium No Notes: Memoria Gluconate - WASTE: F/P l 18:23: - Sink; E [place] 00 - Municipal Trash Bin calcium No Notes: Memoria carbonate - (Same As: l 500 mg (200 18:23: Tums) Lilian nn mg 00 Calcium elemental Carbonate calcium) 500 mg = oral tablet 200 mg elemental calcium Dose = mg calcium carbonate ( mg elemental calcium) Potassium No Notes: Memori a Chloride - (Same as: l 18:23: KCL) 10 [place] 00 mEq/100ml product recommende d for peripheral line administra tion. Infuse no faster than 10 mEq/hr if given peripheral ly. sodium No Notes: Memoria phosphate 5-04 Infuse l 18:23: over 4 [place] 00 hour. Do not infuse phosphorou s [...] Memori a Sulfate - WASTE: F/P l 18:23: - Sink; E [place] - Municipal Trash Bin Magnesium No Notes: Memori a Oxide - (Same as: l 18:23: Mag-Ox [place] 00 400) Magnesium oxide 860gz=336t g elemental magnesium Dose=____m g magnesium oxide (___mg elemental magnesium) Calcium No Notes: Memoria Gluconate - WASTE: F/P l 18:23: - Sink; E [place] 00 - Municipal Trash Bin calcium No Notes: Memoria carbonate - (Same As: l 500 mg (200 18:23: Tums) Lilian nn mg 00 Calcium elemental Carbonate calcium) 500 mg = oral tablet 200 mg elemental calcium Dose = mg calcium carbonate ( mg elemental calcium) Potassium No Notes: Memori a Chloride - (Same as: l 18:23: KCL) 10 [place] 00 mEq/100ml product recommende d for peripheral [...] Memori a Sulfate - WASTE: F/P l 18:23: - Sink; E [place] - [facility] Trash Bin Magnesium No Notes: Memori a Oxide - (Same as: l 18:23: Mag-Ox [place] 00 400) Magnesium oxide 854bp=649l g elemental magnesium Dose=____m g magnesium oxide (___mg elemental magnesium) Calcium No Notes: Memoria Gluconate - WASTE: F/P l 18:23: - Sink; E [place] 00 - Municipal Trash Bin calcium No Notes: Memoria carbonate - (Same As: l 500 mg (200 18:23: Tums) Lilian nn mg 00 Calcium elemental Carbonate calcium) 500 mg = oral tablet 200 mg elemental calcium Dose = mg calcium carbonate ( mg elemental calcium) Potassium No Notes: Memori a Chloride - (Same as: l 18:23: KCL) 10 [place] 00 mEq/100ml product recommende d for peripheral line administra tion. Infuse no faster than 10 mEq/hr if given peripheral ly. sodium No Notes: Memoria phosphate 5-04 Infuse l 18:23: over 4 [place] 00 hour. Do not infuse phosphorou s concurrent ly in the same line as TPN or IVF that contains calcium. For double lumen central lines, phosphorou s may be infused in a separate lumen from TPN. potassium No Notes: Memori a phosphate 5-04 (Same as: l 18:23: K [place] 00 Phosphate. ) Do not infuse phosphorou [...] Memori a Sulfate - WASTE: F/P l 18:23: - Sink; E [place] - Municipal Trash Bin Magnesium No Notes: Memori a Oxide - (Same as: l 18:23: Mag-Ox [place] 00 400) Magnesium oxide 723rb=479g g elemental magnesium Dose=____m g magnesium oxide [...] - (Same as: l 18:23: KCL) 10 [place] 00 mEq/100ml product recommende d for peripheral line administra tion. Infuse no faster than 10 mEq/hr if given peripheral ly. sodium No Notes: Memoria phosphate 5-04 Infuse l 18:23: over 4 [place] 00 hour. Do not infuse phosphorou s [...] - (Same as: l odium 18:23: Phos-NaK) [place] phosphate 00 Each 1.5 250 mg-280 gm pkt has mg-160 mg 250mg oral powder phosphorou for s. Mix reconstitut w/2.5oz ion water and stir. Magnesium No Notes: Memori a Sulfate - WASTE: F/P l 18:23: - Sink; E [place] - Municipal Trash Bin Magnesium No Notes: Memori a Oxide - (Same as: l 18:23: Mag-Ox [place] 00 400) Magnesium oxide 178dc=171d g elemental magnesium Dose=____m g magnesium oxide [...] phosphate 5-04 (Same as: l 18:23: K [place] 00 Phosphate. ) Do not infuse phosphorou s concurrent ly in the same line as TPN or IVF that contains calcium. For double lumen central lines, phosphorou s may be infused in a separate lumen from TPN. 1 mMol phoshate has 1.47 mEq potassium Infuse over 4 hours potassium No Notes: Memori a phosphate-s 10-28 (Same as: l odium 18:23: Phos-NaK) [place] phosphate 00 Each 1.5 250 mg-280 gm pkt has mg-160 mg 250mg oral powder phosphorou for s. Mix reconstitut w/2.5oz ion water and stir. Magnesium No Notes: Memori a Sulfate 10-28 WASTE: F/P l 18:23: - Sink; E [place] 00 - Municipal Trash Bin Magnesium No Notes: Memori a Oxide 10-28 (Same as: l 18:23: Mag-Ox [place] 00 400) Magnesium oxide 097bt=843v g elemental magnesium Dose=____m g magnesium oxide [...] calcium) Acetaminoph No Notes: Max Memoria en -04 acetaminop l 18:22: hen 4000 [place] 00 mg/day (4 gm/day). (Same as: Tylenol Extra Strength) Acetaminoph No Notes: Max Memoria en 5-04 acetaminop l 18:22: hen 4000 [place] 00 mg/day (4 gm/day). (Same as: Tylenol Extra Strength) Acetaminoph No Notes: Max Memoria en 5-04 acetaminop l 18:22: hen 4000 [place] 00 mg/day (4 gm/day). (Same as: Tylenol Extra Strength) Acetaminoph No Notes: Max Memoria en 5-04 acetaminop l 18:22: hen 4000 [place] 00 mg/day (4 gm/day). (Same as: Tylenol Extra Strength) Acetaminoph 0 No Notes: Max Memoria en 5-04 acetaminop l 18:22: hen 4000 [place] 00 mg/day (4 gm/day). (Same as: Tylenol Extra Strength) Acetaminoph 0 No Notes: Max Memoria en 5-04 acetaminop [...] ONCE, Stop date: 10/28/20 12:48:00 CDT neostigmine 2021-0 No Route: IV, Memoria (ANES) 5-04 Drug [...] ONCE, Stop date: 10/28/20 12:41:00 CDT heparin 2020-0 No Route: IV, Hossein [...] ONCE, Stop date: 10/28/20 11:45:00 CDT lidocaine 2020-0 No Route: IV, Me moria (ANES) 5-04 Drug form: l 16:25: INJ, ONCE, Stop date: 10/28/20 11:25:00 CDT glycopyrrol 2020-0 No Route: IV, Memoria ate (ANES) 5-04 [...] 2020-0 No Route: IV, Memoria ate (ANES) 5-04 Drug form: l 16:25: INJ, ONCE, Stop date: 10/28/20 11:25:00 CDT lidocaine 2020-0 No Route: IV, Me moria (ANES) 5-04 Drug form: l 16:25: INJ, ONCE, Stop date: 10/28/20 11:25:00 CDT glycopyrrol 2020-0 No Route: IV, Memoria ate (ANES) 5-04 Drug form: l 16:25: INJ, ONCE, Stop date: 10/28/20 11:25:00 CDT lidocaine 2020-0 No Route: IV, Me moria (ANES) 5-04 Drug form: l 16:25: INJ, ONCE, Stop date: 10/28/20 11:25:00 CDT glycopyrrol 2020-0 No Route: IV, Memoria ate (ANES) 5-04 Drug form: l 16:25: INJ, ONCE, Stop date: 10/28/20 11:25:00 CDT lidocaine 2020-0 No Route: IV, Me moria (ANES) 5-04 Drug form: l 16:25: INJ, ONCE, Stop date: 10/28/20 11:25:00 CDT glycopyrrol 2020-0 No Route: IV, Memoria ate (ANES) 5-04 [...] 2020-0 No Route: IV, Memoria line (ANES) - Drug form: l 16:09: INJ, ONCE, Stop [...] Memoria ne (ANES) 5- Drug form: l 100 15:40: INJ, Start [place] 00 date: 10/28/20 10:40:00 CDT, Stop date: 10/28/20 11:40:00 CDT phenylephri 0 No Route: IV, Memoria ne (ANES) 5-04 Drug form: l 100 15:40: INJ, Start [place] microgram 00 date: 10/28/20 10:40:00 CDT, Stop date: 10/28/20 11:40:00 CDT phenylephri 2020-0 No Route: IV, Memoria ne (ANES) 5-04 Drug form: l 100 15:40: INJ, Start [place] microgram 00 date: 10/28/20 10:40:00 CDT, Stop date: 10/28/20 11:40:00 CDT phenylephri 2020-0 No Route: IV, Memoria ne (ANES) 5-04 Drug form: l 100 15:40: INJ, Start [place] microgram 00 date: 10/28/20 10:40:00 CDT, Stop date: 10/28/20 11:40:00 CDT phenylephri No Route: IV, Memoria ne (ANES) 5-04 Drug form: l 100 15:40: INJ, Start Jesús microgram 00 date: 10/28/20 10:40:00 CDT, Stop date: 10/28/20 11:40:00 CDT phenylephri 0 No Route: IV, Memoria ne (ANES) 5-04 Drug form: l 100 15:40: INJ, Start [place] microgram 00 date: 10/28/20 10:40:00 CDT, Stop date: 10/28/20 11:40:00 CDT Sodium 2020-0 No 1,000 mL, Memori a Chloride -04 Rate: 125 l 0.45% IV 15:33: ml/hr, [place] 1,000 mL 00 Infuse over: 8 hr, Route: IV, Dosing Weight 63.364 kg, Total Volume: 1,000, Start date: 10/28/20 10:33:00 CDT, Duration: 30 day, Stop date: 11/27/20 10:32:00 CDT, 1.65, m2, 0 Saline 0 No Notes: Memoria Flush 0.9% 5-04 (Same [...] 0.9% 5-04 (Same as: l 15:33: BD [place] 00 Posiflush) Sodium 2020-0 No 1,000 mL, Memori a Chloride 5-04 Rate: 125 l 0.45% IV 15:33: ml/hr, [place] 1,000 mL 00 Infuse over: 8 hr, Route: IV, Dosing Weight 63.364 kg, Total Volume: 1,000, Start date: 10/28/20 10:33:00 CDT, Duration: 30 day, Stop date: 11/27/20 10:32:00 CDT, 1.65, m2, 0 Saline 2020-0 No Notes: Memoria Flush 0.9% 5-04 (Same as: l 15:33: BD [place] 00 Posiflush) Sodium 2020-0 No 1,000 mL, Memori a Chloride 5-04 Rate: 125 l 0.45% IV 15:33: ml/hr, [place] 1,000 mL 00 Infuse over: 8 hr, [...] 11/27/20 10:32:00 CDT, 1.65, m2, 0 Saline 0 No Notes: Memoria Flush 0.9% 5-04 (Same as: l 15:33: BD [place] 00 Posiflush) Sodium 0 No 1,000 mL, Memori a Chloride 5-04 Rate: 125 l 0.45% IV 15:33: ml/hr, [place] 1,000 mL 00 Infuse over: 8 hr, Route: IV, Dosing Weight 63.364 kg, Total Volume: 1,000, Start date: 10/28/20 10:33:00 CDT, Duration: 30 day, Stop date: 11/27/20 10:32:00 CDT, 1.65, m2, 0 Saline 0 No Notes: Memoria Flush 0.9% 5-04 (Same [...] CDT, Stop date: 10/28/20 11:14:00 CDT Lactated 0 No Route: IV, Mem oria Ringers 5-04 Total l Injection 15:14: Volume: Lilian nn IV (ANES) 00 1,000, 1000 mL Start date: 10/28/20 10:14:00 CDT, Stop date: 10/28/20 11:14:00 CDT Lactated No Route: IV, Mem oria Ringers 5-04 Total l Injection 15:14: Volume: Lilian nn IV (ANES) 00 1,000, 1000 mL Start date: 10/28/20 10:14:00 CDT, Stop date: 10/28/20 11:14:00 CDT Lactated 1-0 No Route: IV, Mem oria Ringers 5-04 Total l Injection 15:14: Volume: Lilian nn IV (ANES) 00 1,000, 1000 mL Start date: 10/28/20 10:14:00 CDT, Stop date: 10/28/20 11:14:00 CDT Lactated 1-0 No Route: IV, Mem oria Ringers 5-04 Total l Injection 15:14: Volume: Lilian nn IV (ANES) 00 1,000, 1000 mL Start date: 10/28/20 10:14:00 CDT, Stop date: 10/28/20 11:14:00 CDT Cefazolin 2020-0 No Notes: Memori a 4-30 (Same As: l 18:00: Ancef, Jesús Kefzol) MEDICATION WASTE Product Size: 1000 mg Product Wasted: ___ mg Cefazolin 2021-0 No Notes: Memori a 4-30 (Same As: l 18:00: Ancef, [place] Kefzol) MEDICATION WASTE Product Size: 1000 mg Product Wasted: ___ mg Cefazolin 2021-0 No Notes: Memori a 4-30 (Same As: l 18:00: Ancef, [place] 00 Kefzol) MEDICATION WASTE Product Size: 1000 mg Product Wasted: ___ mg Cefazolin 2021-0 No Notes: Memori a 4-30 (Same As: l 18:00: Ancef, [place] 00 Kefzol) MEDICATION WASTE Product Size: 1000 mg Product Wasted: ___ mg Cefazolin 2021-0 No Notes: Memori a 4-30 (Same As: l 18:00: Ancef, [place] 00 Kefzol) MEDICATION WASTE Product Size: 1000 mg Product Wasted: ___ mg Cefazolin 2021-0 No Notes: Memori a 4-30 (Same As: [...] Rate: To l 0.9% 17:47: prime line [place] (titrate) 00 and flush 250 mL remaining blood products., Dosing Weight 63.636, kg, Route: IV, Total Volume: 250, Priority: Routine, Start Date: 10/24/20 12:47:00 CDT, Duration: 1 day, Stop date: 10/25/20 12:46:00 CDT, Replace Every: 24 hr, 0 Restoril No Notes: Memoria 4-30 (Same As: l 17:47: Restoril) [place] 00 [facility] 3:Reproduc tive risk [...] CDT, Replace Every: 24 hr, 0 Restoril 2020-0 No Notes: Memoria 4-30 (Same As: l [...] Memoria 4-30 (Same As: l 17:47: Restoril) [place] 00 [facility] 3:Reproduc tive risk [...] CDT, Replace Every: 24 hr, 0 temazepam 2021-0 Yes 30 mg = 1 Mem oria [...] 20:04: Daily, OR Herm karina Oral Tablet PRN Hydralazine Yes 50 mg = 1 M emoria Hydrochlori 4-28 tab, PO, l de 50 MG 20:04: Daily, OR Herm karina Oral Tablet PRN Hydralazine Yes 50 mg = 1 M emoria Hydrochlori 4-28 tab, PO, l de 50 MG 20:04: Daily, OR Herm karina Oral Tablet PRN Hydralazine Yes 50 mg = 1 M emoria Hydrochlori 4-28 tab, PO, l de 50 MG 20:04: Daily, OR Herm karina Oral Tablet PRN Hydralazine Yes 50 mg = 1 M emoria Hydrochlori 4-28 tab, PO, l de 50 MG 20:04: Daily, OR Herm karina Oral Tablet PRN Hydralazine Yes 50 mg = 1 [...] ia 5-26 Give with l 02:00: food. [place] 00 (Same As: Coreg) carvedilol No Notes: Memor ia 5-26 Give with l 02:00: food. [place] (Same As: Coreg) carvedilol No Notes: Memor ia 5-26 Give with l 02:00: food. [place] 00 (Same As: Coreg) carvedilol No Notes: Memor ia 5-26 Give with l 02:00: food. [place] (Same As: Coreg) carvedilol No Notes: Memor ia 5-26 Give with l 02:00: food. [place] 00 (Same As: Coreg) carvedilol 2018-0 No Notes: Memor ia - Give with l 02:00: food. [place] 00 (Same As: Coreg) lisinopril 2018-0 Yes 20 mg = 1 Me moria 20 mg oral 5-25 tab, PO, l tablet 21:54: Daily, # [place] 00 30 tab, 0 Refill(s), Pharmacy: [facility] #[id number] labetalol 2018-0 Yes 100 mg = 1 Me moria 100 mg oral 5-25 tab, PO, l tablet 21:54: Q12H, # 60 Lilian nn 00 tab, 0 Refill(s), Pharmacy: [facility] #[id number] lisinopril 2018-0 Yes 20 mg = 1 Me moria 20 mg oral 5-25 tab, PO, l tablet 21:54: Daily, # [place] 00 30 tab, 0 Refill(s), Pharmacy: [facility] #[id number] labetalol 2018-0 Yes 100 mg = 1 Me moria 100 mg oral 5-25 tab, PO, l tablet 21:54: Q12H, # 60 Lilian nn 00 tab, 0 Refill(s), Pharmacy: [facility] #[id number] lisinopril 2018-0 Yes 20 mg = 1 Me moria 20 mg oral 5-25 tab, PO, l tablet 21:54: Daily, # [place] 00 30 tab, 0 Refill(s), Pharmacy: [facility] #[id number] labetalol 2018-0 Yes 100 mg = 1 Me moria 100 mg oral 5-25 tab, PO, l tablet 21:54: Q12H, # 60 Lilian nn 00 tab, 0 Refill(s), Pharmacy: [facility] #[id number] lisinopril 2018-0 Yes 20 mg = 1 Me moria 20 mg oral 5-25 tab, PO, l tablet 21:54: Daily, # [place] 00 30 tab, 0 Refill(s), Pharmacy: [facility] #[id number] labetalol 2018-0 Yes 100 mg = 1 Me moria 100 mg oral 5-25 tab, PO, l tablet 21:54: Q12H, # 60 Lilian nn 00 tab, 0 Refill(s), Pharmacy: [facility] cy #[id number] lisinopril 2018-0 Yes 20 mg = 1 Me moria 20 mg oral 5-25 tab, PO, l tablet 21:54: Daily, # [place] 00 30 tab, 0 Refill(s), Pharmacy: [facility] #[id number] labetalol 0 Yes 100 mg = 1 Me moria 100 mg oral 5-25 tab, PO, l tablet 21:54: Q12H, # 60 Lilian nn 00 tab, 0 Refill(s), Pharmacy: [facility] #[id number] lisinopril 2017-0 Yes 20 mg = 1 Me moria 20 mg oral 5-25 tab, PO, l tablet 21:54: Daily, # [place] 00 30 tab, 0 Refill(s), Pharmacy: [facility] #[id number] labetalol 2017-0 Yes 100 mg = 1 Me moria 100 mg oral 5-25 tab, PO, l tablet 21:54: Q12H, # 60 Lilian nn 00 tab, 0 Refill(s), Pharmacy: [facility] #[id number] Labetalol 0 No Notes: Memori a 5-25 With food. l 20:55: (Same [place] 00 as:Trandat e, Normodyne) Lisinopril 2017-0 No Notes: Memor ia 5-25 (Same as: l 20:55: Prinivil, [place] 00 Zestril) Labetalol 2017-0 No Notes: Memori a 5-25 With food. l 20:55: (Same [place] 00 as:Trandat e, Normodyne) Lisinopril 2017-0 No Notes: Memor ia 5-25 (Same as: l 20:55: Prinivil, [place] 00 Zestril) Labetalol 2017-0 No Notes: Memori a 5-25 With food. l 20:55: (Same [place] 00 as:Trandat e, Normodyne) Lisinopril 2017-0 No Notes: Memor ia 5-25 (Same as: l 20:55: Prinivil, [place] 00 Zestril) Labetalol 0 No Notes: Memori a 5-25 With food. l 20:55: (Same [place] 00 as:Trandat e, Normodyne) Lisinopril 0 No Notes: Memor ia 5-25 (Same as: l 20:55: Prinivil, [place] 00 Zestril) Labetalol 0 No Notes: Memori a 5-25 With food. l 20:55: (Same [place] 00 as:Trandat e, Normodyne) Lisinopril 2017- No Notes: Memor ia 5-25 (Same as: l 20:55: Prinivil, [place] 00 Zestril) Labetalol 0 No Notes: Memori a 5-25 With food. l 20:55: (Same [place] 00 as:Trandat e, Normodyne) Lisinopril No Notes: Memor ia 5-25 (Same as: l 20:55: Prinivil, [place] 00 Zestril) carvedilol No 12.5 mg, Mem oria 12.5 mg 5-25 PO, Q12H, l oral tablet 16:55: # 60 tab, H ermann 00 0 Refill(s), Pharmacy: [facility] #[id number] carvedilol 2017-0 No 12.5 mg, Mem oria 12.5 mg 5-25 PO, Q12H, l oral tablet 16:55: # 60 tab, H ermann 00 0 Refill(s), Pharmacy: [facility] #[id number] carvedilol 2017-0 No 12.5 mg, Mem oria 12.5 mg 5-25 PO, Q12H, l oral tablet 16:55: # 60 tab, H ermann 00 0 Refill(s), Pharmacy: [facility] #[id number] carvedilol 2017-0 No 12.5 mg, Mem oria 12.5 mg 5-25 PO, Q12H, l oral tablet 16:55: # 60 tab, H ermann 00 0 Refill(s), Pharmacy: [facility] #[id number] carvedilol 2017-0 No 12.5 mg, Mem oria 12.5 mg 5-25 PO, Q12H, l oral tablet 16:55: # 60 tab, H ermann 00 0 Refill(s), Pharmacy: [facility] #[id number] carvedilol 2018-0 No 12.5 mg, Mem oria 12.5 mg 5-25 PO, Q12H, l oral tablet 16:55: # 60 tab, H ermann 0 Refill(s), Pharmacy: [facility] #[id number] Lovenox No Notes: Memoria 5-24 (Same [...] pharmacy re-entry for dosing time adjustment Trazodone No Notes: Memori a 5-24 (Same [...] (Same capsular as: antigen Prevnar diphtheria 13) [id number] protein conjugate vaccine / Streptococc us pneumoniae serotype 14 capsular antigen diphtheria [id number] protein conjugate vaccine / Streptococc us pneumoniae serotype 18C capsular antigen d Streptococc No Notes: Hossein diana us 5-23 Shake well l pneumoniae 21:23: prior to Her [place] serotype 1 25 use (Same capsular as: antigen Prevnar diphtheria 13) [id number] protein conjugate vaccine / Streptococc us pneumoniae serotype 14 capsular antigen diphtheria [id number] protein conjugate vaccine / Streptococc us pneumoniae serotype 18C capsular antigen d Streptococc No Notes: Hossein diana us 5-23 Shake well l pneumoniae 21:23: prior to Her [place] serotype 1 25 use (Same capsular as: antigen Prevnar diphtheria 13) [id number] protein conjugate vaccine / Streptococc us pneumoniae serotype 14 capsular antigen diphtheria [id number] protein conjugate vaccine / Streptococc us pneumoniae serotype 18C capsular antigen d Streptococc No Notes: Hossein diana us 5-23 Shake well l pneumoniae 21:23: prior to Her [place] serotype 1 25 use (Same capsular as: antigen Prevnar diphtheria 13) [id number] protein conjugate vaccine / Streptococc us pneumoniae serotype 14 capsular antigen diphtheria [id number] protein conjugate vaccine / Streptococc us pneumoniae serotype 18C capsular antigen d Streptococc No Notes: Hossein diana us 5-23 Shake well l pneumoniae 21:23: prior to Her [place] serotype 1 25 use (Same capsular as: antigen Prevnar diphtheria 13) [id number] protein conjugate vaccine / Streptococc us pneumoniae serotype 14 capsular antigen diphtheria [id number] protein conjugate vaccine / Streptococc us pneumoniae serotype 18C capsular antigen d Streptococc No Notes: Hossein diana us 5-23 Shake well l pneumoniae 21:23: prior to Her [place] serotype 1 25 use (Same capsular as: antigen Prevnar diphtheria 13) [id number] protein conjugate vaccine / Streptococc us pneumoniae serotype 14 capsular antigen diphtheria [id number] protein conjugate vaccine / Streptococc us pneumoniae serotype 18C capsular antigen d Omnipaque No 45 Memoria 350 5-23 mL/min, l injectable 17:01: STATKishore n solution 00 Start date: 11/16/17 12:01:00 CDT, Duration: 1 doses or times Omnipaque 0 No 45 Memoria 350 5-23 mL/min, l injectable 17:01: STAT, Kishore n solution 00 Start date: 11/16/17 12:01:00 CDT, Duration: 1 doses or times Omnipaque 2018-0 No 45 Memoria 350 5-23 mL/min, l injectable 17:01: STAT, Kishore n solution 00 Start date: 11/16/17 12:01:00 CDT, Duration: 1 doses or times Omnipaque 2018-0 No 45 Memoria 350 5-23 mL/min, l injectable 17:01: STAT, Kishore n solution Start date: 11/16/17 12:01:00 CDT, Duration: 1 doses or times Omnipaque 2017-0 No 45 Memoria 350 5-23 mL/min, l injectable 17:01: STAT, Kishore n solution Start date: 11/16/17 12:01:00 CDT, Duration: 1 doses or times Omnipaque 2018-0 No 45 Memoria 350 5-23 mL/min, l injectable 17:01: STAT, Kishore n solution Start date: 11/16/17 12:01:00 CDT, Duration: 1 doses or times Lovenox 2018-0 No Notes: Memoria 5-22 (Same [...] Lovenox) pharmacy re-entry for dosing time adjustment pantoprazol 2018-0 No Notes: Hossein diana e 5-22 Tablet l 21:30: should not be chewed or crushed. (Same as: Protonix) pantoprazol 0 No Notes: Hossein diana e 5-22 Tablet l 21:30: should not [place] 00 be chewed or crushed. (Same as: Protonix) pantoprazol 0 No Notes: Hossein diana e 5-22 Tablet l 21:30: should not [place] 00 be chewed or crushed. (Same as: Protonix) pantoprazol No Notes: Hossein diana e 5-22 Tablet l 21:30: should not [place] 00 be chewed or crushed. (Same as: Protonix) pantoprazol No Notes: Hossein diana e 5-22 Tablet l 21:30: should not [place] 00 be chewed or crushed. (Same as: Protonix) pantoprazol No Notes: Hossein diana e 5-22 Tablet l 21:30: should not [place] 00 be chewed or crushed. (Same as: Protonix) Lasix No Notes: Memoria 5-22 (Same as: l 14:40: Lasix) [place] 00 MEDICATION WASTE Product Size: 40 mg Product Wasted: ___ mg Lasix No Notes: Memoria -22 (Same as: l 14:40: Lasix) [place] 00 MEDICATION WASTE Product Size: 40 mg Product Wasted: ___ mg Lasix No Notes: Memoria -22 (Same as: l 14:40: Lasix) [place] 00 MEDICATION WASTE Product Size: 40 mg Product Wasted: ___ mg Lasix 0 No Notes: Memoria 5-22 (Same as: l 14:40: Lasix) [place] 00 MEDICATION WASTE Product Size: 40 mg Product Wasted: ___ mg Lasix 0 No Notes: Memoria 5-22 (Same as: l 14:40: Lasix) [place] 00 MEDICATION WASTE Product Size: 40 mg Product Wasted: ___ mg Lasix 0 No Notes: Memoria 5-22 (Same as: l 14:40: Lasix) [place] 00 MEDICATION WASTE Product Size: 40 mg Product Wasted: ___ mg Vitamin B12 No 2,500 Memor ia 5-22 [...] Memori a 5-22 NSAID. l 14:00: Please [place] 00 check indication . Not for seizure. (Same As: CeleBREX) Aspirin No Notes: Memoria 5-22 Take with l 14:00: food. Vitamin B12 No 2,500 Memor ia 5-22 microgram, l 14:00: Route: SL, Drug form: TAB, Daily, Dosing Weight 61.818, kg, Start date: 11/15/17 9:00:00 CDT, Duration: 30 day, Stop date: 12/14/17 9:00:00 CDT celecoxib No Notes: Memori a 5-22 NSAID. l 14:00: Please [place] 00 check indication . Not for seizure. (Same As: CeleBREX) Aspirin No Notes: Memoria 5-22 Take with l 14:00: food. Vitamin B12 No 2,500 Memor ia 5-22 microgram, l 14:00: Route: , Drug form: TAB, Daily, Dosing Weight 61.818, kg, Start date: 11/15/17 9:00:00 CDT, Duration: 30 day, Stop date: 12/14/17 9:00:00 CDT celecoxib [id number] No Notes: Memori a 5-22 NSAID. l 14:00: Please [place] 00 check indication . Not for seizure. (Same As: CeleBREX) Aspirin No Notes: Memoria 5-22 Take with l 14:00: food. Thyroxine No Notes: Memori a 5-22 Take 1 l 11:30: hour [place] 00 before or 2 hours after meal; Enteral feeds may interefere with the absorption of this medication .(Same as:Levothr oid, Synthroid) Thyroxine No Notes: Memori a 5-22 Take 1 l 11:30: hour [place] 00 before or 2 hours after meal; Enteral feeds may interefere with the absorption of this medication .(Same as:Levothr oid, Synthroid) Thyroxine No Notes: Memori a 5-22 Take 1 l 11:30: hour [place] 00 before or 2 hours after meal; Enteral feeds may interefere with the absorption of this medication .(Same as:Levothr oid, Synthroid) Thyroxine No Notes: Memori a 5-22 Take 1 l 11:30: hour [place] 00 before or 2 hours after meal; [...] 5-22 not give l 07:25: IV push. [place] 00 (Same as: Phenergan) Phenergan No Notes: Do Mem oria 5-22 not give l 07:25: IV push. [place] 00 (Same as: Phenergan) Phenergan No Notes: Do Mem oria 5-22 not give l 07:25: IV push. [place] 00 (Same as: Phenergan) Phenergan No Notes: Do Mem oria 5-22 not give l 07:25: IV push. [place] 00 (Same as: Phenergan) Phenergan No Notes: Do Mem oria 5-22 not give l 07:25: IV push. [place] 00 (Same as: Phenergan) Phenergan No Notes: Do Mem oria 5-22 not give l 07:25: IV push. [place] 00 (Same as: Phenergan) Albuterol No Notes: Memori a 0.833 MG/ML 11-15 (Same as: l / 07:00: Duoneb) [place] Ipratropium 00 [place] 0.167 MG/ML Inhalant Solution [DuoNeb] Albuterol No Notes: Memori a 0.833 MG/ML 5-22 (Same as: l 07:00: Duoneb) [place] Ipratropium 00 [place] 0.167 MG/ML Inhalant Solution [DuoNeb] Albuterol No Notes: Memori a 0.833 MG/ML 5-22 (Same as: l 07:00: Duoneb) [place] Ipratropium 00 [place] 0.167 MG/ML Inhalant Solution [DuoNeb] Albuterol No Notes: Memori a 0.833 MG/ML 5-22 (Same as: l 07:00: Duoneb) [place] Ipratropium 00 [place] 0.167 MG/ML Inhalant Solution [DuoNeb] Albuterol No Notes: Memori a 0.833 MG/ML 5-22 (Same as: 07:00: Duoneb) [place] Ipratropium 00 [place] 0.167 MG/ML Inhalant Solution [DuoNeb] Albuterol No Notes: Memori a 0.833 MG/ML 5-22 (Same as: 07:00: Duoneb) [place] Ipratropium 00 [place] 0.167 MG/ML Inhalant Solution [DuoNeb] cefuroxime No Notes: Memor ia + sterile 5-22 (Same As: l water 20 mL 06:00: [facility] 00 Zinacef) MEDICATION WASTE Product Size: 1500 mg Product Wasted: _0__ mg cefuroxime No Notes: Memor ia + sterile 5-22 (Same As: l water 20 mL 06:00: [facility] 00 Zinacef) MEDICATION WASTE Product Size: 1500 mg Product Wasted: _0__ mg cefuroxime No Notes: Memor ia + sterile 5-22 (Same As: l water 20 mL 06:00: [facility] Zinacef) MEDICATION WASTE Product Size: 1500 mg Product Wasted: _0__ mg cefuroxime No Notes: Memor ia + sterile 5-22 (Same As: l water 20 mL 06:00: [facility] Zinacef[facility] MEDICATION WASTE Product Size: 1500 mg Product Wasted: _0__ mg cefuroxime No Notes: Memor ia + sterile 5-22 (Same As: l water 20 mL 06:00: Kefurox, rmann Zinacef) MEDICATION WASTE Product Size: 1500 mg Product Wasted: _0__ mg cefuroxime No Notes: Memor ia + sterile 5-22 (Same As: l water 20 mL 06:00: Kefurox, rmann Zinacef) MEDICATION WASTE Product Size: 1500 mg Product Wasted: _0__ mg ocular No Notes: Memoria lubricant 5-22 (Same as: l 05:00: Lacri-Lube [place] 00 , Duratears Naturale, Artificial Tears, and Tears Again ) ocular No Notes: Memoria lubricant 5-22 (Same as: l 05:00: Lacri-Lube [place] 00 , Duratears [place]atur[place], Artificial Tears, and Tears Again ) ocular No Notes: Memoria lubricant 5-22 (Same as: l 05:00: Lacri-Lube [place] 00 , Duratears Naturale, Artificial Tears, and Tears Again ) ocular No Notes: Memoria lubricant 5-22 (Same as: l 05:00: Lacri-Lube [place] 00 , Duratears Naturale, Artificial Tears, and Tears Again ) ocular No Notes: Memoria lubricant 5-22 (Same as: l 05:00: Lacri-Lube [place] 00 , Duratears Naturale, Artificial Tears, and Tears Again ) ocular No Notes: Memoria lubricant 5-22 (Same as: l 05:00: Lacri-Lube [place] 00 , Duratears Naturale, Artificial Tears, and Tears Again ) Norepinephr No Notes: Hossein diana ine - Same as: l 02:27: Levophed. [place] 00 Administer by either central venous catheter [...] ine 5-22 Same as: l 02:27: Levophed. [place] 00 Administer by either central venous catheter [...] ine 5-22 Same as: l 02:27: Levophed. [place] 00 Administer by either central venous catheter [...] ia 5-22 Route: l 02:00: IVP, Q12H, [place] 00 Dosing Weight 61.818, kg, Start date: 11/14/17 21:00:00 CDT, Duration: 30 day, Stop date: 12/14/17 9:00:00 CDT Saline No Notes: Memoria Flush 0.9% 5-22 (Same as: l 02:00: BD [place] 00 Posiflush) Labetalol 0 No Notes: Memori a 5-22 With food. l 02:00: (Same [place] 00 as:Trandat e, Normodyne) Simvastatin No Notes: Hossein diana 5-22 (Same as: l 02:00: Zocor) [place] 00 famotidine No Notes: Memor ia 5-22 (Same as: l 02:00: Pepcid) [place] 00 Can be dilute in 5-10cc NS IVP: Slow IV push over at least 2 minutes. chlorhexidi No Notes: Hossein diana ne 5-22 (Same As: l gluconate 02:00: Peridex) Herm karina 1.2 MG/ML 00 Mouthwash Famotidine No 20 mg, Memor ia 5-22 Route: l 02:00: IVP, Q12H, [place] 00 Dosing Weight 61.818, kg, Start date: 11/14/17 21:00:00 CDT, Duration: 30 day, Stop date: 12/14/17 9:00:00 CDT Saline No Notes: Memoria Flush 0.9% 5-22 (Same as: l 02:00: BD [place] 00 Posiflush) Labetalol No Notes: Memori a 5-22 With food. l 02:00: (Same [place] 00 as:Trandat e, Normodyne) Simvastatin No Notes: Hossein diana 5-22 (Same as: l 02:00: Zocor) [place] famotidine No Notes: Memor ia 5-22 (Same as: l 02:00: Pepcid) [place] 00 Can be dilute in 5-10cc NS IVP: Slow IV push over at least 2 minutes. chlorhexidi No Notes: Hossein diana ne 5-22 (Same As: l gluconate 02:00: Peridex) Herm karina 1.2 MG/ML 00 Mouthwash Famotidine No 20 mg, Memor ia 5-22 Route: l 02:00: IVP, Q12H, Jesús Dosing Weight 61.818, kg, Start date: 11/14/17 21:00:00 CDT, Duration: 30 day, Stop date: 12/14/17 9:00:00 CDT Saline No Notes: Memoria Flush 0.9% 5-22 (Same as: l 02:00: BD [place] Posiflush) Labetalol No Notes: Memori a 5-22 With food. l 02:00: (Same [place] 00 as:Trandat e, Normodyne) Simvastatin No Notes: [...] ia 5-22 Route: l 02:00: IVP, Q12H, [place] 00 Dosing Weight 61.818, kg, Start date: 11/14/17 21:00:00 CDT, Duration: 30 day, Stop date: 12/14/17 9:00:00 CDT Saline No Notes: Memoria Flush 0.9% 5-22 (Same as: l 02:00: BD [place] Posiflush) Labetalol No Notes: Memori a 5-22 With food. l 02:00: (Same [place] 00 as:Trandat e, Normodyne) Simvastatin No Notes: [...] 0.9% 5-22 (Same as: l 02:00: BD [place] Posiflush) Labetalol No Notes: Memori a 5-22 With food. l 02:00: (Same as:Trandat e, Normodyne) Simvastatin No Notes: Hossein diana 5-22 (Same as: l 02:00: Zocor) famotidine No Notes: Memor ia 5-22 (Same as: l 02:00: Pepcid) Jesús Can be dilute in 5-10cc NS IVP: [...] 0.9% 5-22 (Same as: l 02:00: BD [place] 00 Posiflush) Labetalol No Notes: Memori a 5-22 With food. l 02:00: (Same as:Trandat e, Normodyne) Simvastatin No Notes: Hossein diana 5-22 (Same as: l 02:00: Zocor) glucagon No 1 mg, Memoria 5-22 Route: l 01:29: INJ, Drug form: PDR/INJ, PRN, PRN Blood Glucose Results, Start date: 11/14/17 20:29:00 CDT, Duration: 30 day, Stop date: 12/14/17 20:28:00 CDT glucagon 2018-0 No 1 mg, Memoria - Route: l 01:29: INJ, Drug [place] 00 form: PDR/INJ, PRN, PRN Blood Glucose Results, Start date: 11/14/17 20:29:00 CDT, Duration: 30 day, Stop date: 12/14/17 20:28:00 CDT glucagon 2018-0 No 1 mg, Memoria 11-15 Route: l 01:29: INJ, Drug [place] 00 form: PDR/INJ, PRN, PRN Blood Glucose Results, Start date: 11/14/17 20:29:00 CDT, Duration: 30 day, Stop date: 12/14/17 20:28:00 CDT glucagon 2018-0 No 1 mg, Memoria 11-15 Route: l 01:29: INJ, Drug [place] form: PDR/INJ, PRN, PRN Blood Glucose Results, Start date: 11/14/17 20:29:00 CDT, Duration: 30 day, Stop date: 12/14/17 20:28:00 CDT glucagon 2017-0 No 1 mg, Memoria 11-15 Route: l 01:29: INJ, Drug [place] form: PDR/INJ, PRN, PRN Blood Glucose Results, Start date: 11/14/17 20:29:00 CDT, Duration: 30 day, Stop date: 12/14/17 20:28:00 CDT glucagon 2018-0 No 1 mg, Memoria 11-15 Route: l 01:29: INJ, Drug [place] 00 form: PDR/INJ, PRN, PRN Blood Glucose Results, Start date: 11/14/17 20:29:00 CDT, Duration: 30 day, Stop date: 12/14/17 20:28:00 CDT Dextrose 2018-0 No 50 mL, Memoria 50% in 11-15 Route: l Water IV 01:28: IVP, Start Her [place] 00 date: 11/14/17 20:28:00 CDT, Duration: 30 day, Stop date: 12/14/17 20:27:00 CDT, PRN Blood Glucose Results Humalog 2017-0 No Notes: Memoria 5-22 (Same as: l : Humalog ) [place] 00 Roll in palms of hands gently; Do not shake `vigorousl y. "Single Patient Use Only " WASTE: F/P - Black; E - Municipal Trash Bin Stable for 28 days at room temperatur e. Expires in days from ____Date Dextrose No 50 mL, Memoria 50% in 11-15 Route: l Water IV 01:28: IVP, Start [place] 00 date: 11/14/17 20:28:00 CDT, Duration: 30 day, Stop date: 12/14/17 20:27:00 CDT, PRN Blood Glucose Results [facility] No Notes: Memoria 11-15 (Same as: l : Humalog ) [place] 00 Roll in palms of hands gently; Do not shake `vigorousl y. "Single Patient Use Only " WASTE: F/P - Black; E - Municipal Trash Bin Stable for 28 days at room temperatur e. Expires in days from ____Date Dextrose No 50 mL, Memoria 50% in 11-15 Route: l Water IV 01:28: IVP, Start [place] date: 11/14/17 20:28:00 CDT, Duration: 30 day, Stop date: 12/14/17 20:27:00 CDT, PRN Blood Glucose Results [facility] No Notes: Memoria 11-15 (Same as: l [...] 12/14/17 20:27:00 CDT, PRN [facility] Notes: Memoria 11-15 (Same as: l : Humalog ) [place] 00 Roll in palms of hands gently; Do not shake `vigorousl y. "Single Patient Use Only " WASTE: F/P - Black; E - Municipal Trash Bin Stable for 28 days at room temperatur e. Expires in days from ____Date Dextrose No 50 mL, Memoria 50% in 11-15 Route: l Water IV 01:28: IVP, Start [place] 00 date: 11/14/17 20:28:00 CDT, Duration: 30 day, Stop date: 12/14/17 20:27:00 CDT, PRN Blood Glucose Results [facility] No Notes: Memoria 11-15 (Same as: l : Humalog ) [place] 00 Roll in palms of hands gently; Do not shake `vigorousl y. "Single Patient Use Only " WASTE: F/P - Black; E - Municipal Trash Bin Stable for 28 days at room temperatur e. Expires in days from ____Date Dextrose No 50 mL, Memoria 50% in 11-15 Route: l Water IV 01:28: IVP, Start [place] 00 date: 11/14/17 20:28:00 CDT, Duration: 30 day, Stop date: 12/14/17 20:27:00 CDT, PRN Blood Glucose Results [facility] No Notes: Memoria 11-15 (Same as: l : Humalog ) [place] 00 Roll in palms of hands gently; Do not shake `vigorousl y. "Single Patient Use Only " WASTE: F/P - Black; E - Municipal Trash Bin Stable for 28 days at room temperatur e. Expires in days from ____Date Humalog No Notes: Memoria 11-15 (Same as: l : Humalog ) [place] 00 Roll in palms of hands gently; Do not shake `vigorousl y. "Single Patient Use Only " WASTE: F/P - Black; E - Municipal Trash Bin Stable for 28 days at room temperatur e. Expires in days from ____Date Humalog No Notes: Memoria 11-15 (Same as: : ) [place] 00 Roll in palms of hands gently; Do not shake `vigorousl y. "Single Patient Use Only " WASTE: F/P - Black; E - Municipal Trash Bin Stable for 28 days at room temperatur e. Expires in days from ____Date Humalog No Notes: Memoria 11-15 (Same as: : ) [place] 00 Roll in palms of hands gently; Do not shake `vigorousl y. "Single Patient Use Only " WASTE: F/P - Black; E - Municipal Trash Bin Stable for 28 days at room temperatur e. Expires in days from ____Date [facility] No Notes: Memoria 11-15 (Same as: : ) [place] 00 Roll in palms of hands gently; Do not shake `vigorousl y. "Single Patient Use Only " WASTE: F/P - Black; E - Municipal Trash Bin Stable for 28 days at room temperatur e. Expires in days from ____Date Humalog No Notes: Memoria 11-15 (Same as: : ) [place] 00 Roll in palms of hands gently; Do not shake `vigorousl y. "Single Patient Use Only " WASTE: F/P - Black; E - Municipal Trash Bin Stable for 28 days at room temperatur e. Expires in days from ____Date Humalog No Notes: Memoria 11-15 (Same as: : ) [place] 00 Roll in palms of [...] Chloride - (Same as: l 01:10: Potassium [place] 00 Chloride) potassium No Notes: Memori a phosphate -22 (Same as: l 01:10: K [place] Phosphate. ) 1 mMol phoshate has 1.47 mEq potassium Infuse over 4 hours sodium No 30 mmol, Memoria phosphate -22 10 mL, l 01:10: Route: [place] 00 IVPB, PRN, Dosing Weight 61.818, kg, [...] Oxide - (Same as: l 01:10: Mag-Ox [place] 00 400) Magnesium oxide 644ym=703l g elemental magnesium Dose=____m g magnesium oxide (___mg elemental magnesium) Calcium No Notes: Memoria Gluconate 11-15 WASTE: F/P l 01:10: - Sink; E [place] 00 - Municipal Trash Bin Magnesium No Notes: Memori a Sulfate 11-15 WASTE: F/P l 01:10: - Sink; E [place] 00 - Municipal Trash Bin potassium No Notes: Memori a phosphate-s -22 (Same as: l odium 01:10: Phos-NaK) [place] phosphate 00 Each 1.5 250 mg-280 gm pkt has mg-160 mg 250mg oral powder phosphorou for s. Mix reconstitut w/2.5oz ion water and stir. Fentanyl No Notes: Memoria -22 Concentrat l 01:10: ion: 5 [place] 00 [...] phosphate -22 10 mL, l 01:10: Route: IVPB, PRN, Dosing Weight 61.818, kg, PRN Abnormal Lab Result, Start date: 11/14/17 20:10:00 CDT, Duration: 30 day, Stop date: 12/14/17 20:09:00 CDT, FOR ICU USE ONLY Calcium No Notes: Memoria Carbonate 11-15 (Same As: l 500 MG 01:10: Tums) [place] Chewable 00 Calcium Tablet Carbonate 500 mg = 200 mg elemental calcium Dose = mg calcium carbonate ( mg elemental calcium) Magnesium No Notes: Memori a Oxide - (Same as: l 01:10: Mag-Ox [place] 00 400) Magnesium oxide 065ep=772l g elemental magnesium Dose=____m g magnesium oxide (___mg elemental magnesium) Calcium No Notes: Memoria Gluconate 11-15 WASTE: F/P l 01:10: - Sink; E [place] - Municipal Trash Bin Magnesium No Notes: Memori a Sulfate 11-15 WASTE: F/P l 01:10: - Sink; E [place] - Municipal Trash Bin potassium No Notes: Memori a phosphate-s - (Same as: l odium 01:10: Phos-NaK) phosphate 00 Each 1.5 250 mg-280 gm pkt has mg-160 mg 250mg oral powder phosphorou for s. Mix reconstitut w/2.5oz ion water and stir. Fentanyl No Notes: Memoria 5-22 Concentrat l 01:10: ion: 5 [place] 00 microgram / ml Saline No Notes: Memoria Flush 0.9% 11-15 (Same as: l 01:10: BD [place] 00 Posiflush) chlorhexidi No Notes: Hossein diana ne 11-15 (Same As: l gluconate 01:10: Peridex) Herm karina 1.2 MG/ML 00 Mouthwash Potassium No Notes: Memori a Chloride - (Same as: l 01:10: Potassium Chloride) potassium No Notes: Memori a phosphate - (Same as: l 01:10: K Phosphate. ) 1 mMol phoshate has 1.47 mEq potassium Infuse over 4 hours sodium No 30 mmol, Memoria phosphate -22 10 mL, l 01:10: Route: IVPB, PRN, Dosing Weight 61.818, kg, PRN [...] Oxide - (Same as: l 01:10: Mag-Ox [place] 400) Magnesium oxide 664ek=354y g elemental magnesium Dose=____m g magnesium oxide (___mg elemental magnesium) Calcium No Notes: Memoria Gluconate - WASTE: F/P l 01:10: - Sink; E [place] - Municipal Trash Bin Magnesium No Notes: Memori a Sulfate 11-15 WASTE: F/P l 01:10: - Sink; E [place] 00 - Municipal Trash Bin potassium No Notes: Memori a phosphate-s - (Same as: l odium 01:10: Phos-NaK) [place] phosphate 00 Each 1.5 250 mg-280 gm pkt has mg-160 mg 250mg oral powder phosphorou for s. Mix reconstitut w/2.5oz ion water and stir. Fentanyl No Notes: Memoria -22 Concentrat l 01:10: ion: 5 microgram / ml Saline No Notes: Memoria Flush 0.9% 11-15 (Same as: l 01:10: BD [place] 00 Posiflush) chlorhexidi No Notes: Hossein diana ne 11-15 (Same As: l gluconate 01:10: Peridex) Herm karina 1.2 MG/ML 00 Mouthwash Potassium No Notes: Memori a Chloride - (Same as: l 01:10: Potassium Chloride) potassium No Notes: Memori a phosphate - (Same as: l 01:10: K Phosphate. ) 1 mMol phoshate has 1.47 mEq potassium Infuse over 4 hours sodium No 30 mmol, Memoria phosphate -22 10 mL, l 01:10: Route: [place] 00 IVPB, PRN, Dosing Weight 61.818, kg, [...] Oxide -22 (Same as: l 01:10: Mag-Ox [place] 00 400) Magnesium oxide 151ee=205m g elemental magnesium Dose=____m g magnesium oxide (___mg elemental magnesium) Calcium No Notes: Memoria Gluconate 11-15 WASTE: F/P l 01:10: - Sink; E [place] - Municipal Trash Bin Magnesium No Notes: Memori a Sulfate 11-15 WASTE: F/P l 01:10: - Sink; E [place] - [facility] Trash Bin potassium No Notes: Memori a phosphate-s 11-15 (Same as: l odium 01:10: Phos-NaK) [place] phosphate 00 Each 1.5 250 mg-280 gm pkt has mg-160 mg 250mg oral powder phosphorou for s. Mix reconstitut w/2.5oz ion water and stir. Fentanyl No Notes: Memoria - Concentrat l 01:10: ion: 5 [place] 00 microgram / ml Saline No Notes: Memoria Flush 0.9% 11-15 (Same as: l 01:10: BD [place] 00 Posiflush) chlorhexidi No Notes: Hossein diana [...] (Same As: l 500 MG 01:10: Tums) [place] Chewable 00 Calcium Tablet Carbonate 500 mg = 200 mg elemental calcium Dose = mg calcium carbonate ( mg elemental calcium) Magnesium No Notes: Memori a Oxide - (Same as: l 01:10: Mag-Ox [place] 00 400) Magnesium oxide 653yo=783a g elemental magnesium Dose=____m g magnesium oxide (___mg elemental magnesium) Calcium No Notes: Memoria Gluconate 11-15 WASTE: F/P l 01:10: - Sink; E [place] - Municipal Trash Bin Magnesium No Notes: Memori a Sulfate 11-15 WASTE: F/P l 01:10: - Sink; E [place] - Municipal Trash Bin potassium No Notes: Memori a phosphate-s - (Same as: l odium 01:10: Phos-NaK) [place] phosphate 00 Each 1.5 250 mg-280 gm pkt has mg-160 mg 250mg oral powder phosphorou for s. Mix reconstitut w/2.5oz ion water and stir. Fentanyl No Notes: Memoria - Concentrat l 01:10: ion: 5 [place] 00 microgram / ml Saline No Notes: Memoria Flush 0.9% 11-15 (Same as: l 01:10: BD [place] Posiflush) chlorhexidi No Notes: Hossein diana ne 11-15 (Same As: l gluconate 01:10: Peridex) Herm karina 1.2 MG/ML 00 Mouthwash Potassium No Notes: Memori a Chloride - (Same as: l 01:10: Potassium Chloride) potassium No Notes: Memori a phosphate -22 (Same as: l 01:10: K Phosphate. ) 1 mMol phoshate has 1.47 mEq potassium Infuse over 4 hours sodium No 30 mmol, Memoria phosphate 5-22 10 mL, l 01:10: Route: [place] 00 IVPB, PRN, Dosing Weight 61.818, kg, [...] 01:10: Mag-Ox [place] 00 400) Magnesium oxide 990yj=548j g elemental magnesium Dose=____m g magnesium oxide [...] Memoria 11-15 Concentrat l 01:10: ion: 5 microgram / ml Saline No Notes: Memoria Flush 0.9% 11-15 (Same as: l 01:10: BD [place] 00 Posiflush) sodium No Route: IV, Memor ia bicarbonate 11-15 Drug form: l (ANES) 01:02: INJ, ONCE, Lilian Stop date: 11/14/17 20:02:00 CDT calcium No Route: IV, Hossein diana chloride 11-15 Drug form: l (ANES) 01:02: INJ, ONCE, Lilian nn Stop date: 11/14/17 20:02:00 CDT rocuronium No Route: IV, M emoria (ANES) 11-15 Drug form: l 01:02: INJ, ONCE, Jesús Stop date: 11/14/17 20:02:00 CDT midazolam No Route: IV, Me moria (ANES) 11-15 Drug form: l 01:02: SOLN, [place] 00 ONCE, Stop date: 11/14/17 20:02:00 CDT fentaNYL 2018-0 No Route: IV, Mem oria (ANES) 5-22 Drug form: l 01:02: INJ, ONCE, [place] Stop date: 11/14/17 20:02:00 CDT sodium 2018-0 [...] (ANES) 5-22 Drug form: l 01:02: SOLN, [place] 00 ONCE, Stop date: 11/14/17 20:02:00 CDT fentaNYL [...] 5-22 Drug form: l 01:02: INJ, ONCE, [place] 00 Stop date: 11/14/17 20:02:00 CDT midazolam 2018-0 No Route: IV, Me moria (ANES) 5-22 Drug form: l 01:02: SOLN, [place] 00 ONCE, Stop date: 11/14/17 20:02:00 CDT fentaNYL 2018-0 No Route: IV, Mem oria (ANES) 5-22 Drug form: l 01:02: INJ, ONCE, [place] 00 Stop date: 11/14/17 20:02:00 CDT sodium [...] 5-22 Drug form: l 01:02: INJ, ONCE, [place] 00 Stop date: 11/14/17 20:02:00 CDT midazolam 2018-0 No Route: IV, Me moria (ANES) 5-22 Drug form: l 01:02: SOLN, [place] 00 ONCE, Stop date: 11/14/17 20:02:00 CDT fentaNYL [...] (ANES) 5-22 Drug form: l 01:02: SOLN, [place] 00 ONCE, Stop date: 11/14/17 20:02:00 CDT fentaNYL 0 No Route: IV, Mem oria (ANES) 11-15 Drug form: l 01:02: INJ, ONCE, Stop date: 11/14/17 20:02:00 CDT sodium 0 No Route: IV, Memor ia bicarbonate 11-15 Drug form: l (ANES) 01:02: INJ, ONCE, Stop date: 11/14/17 20:02:00 CDT calcium 0 No Route: IV, Hossein diana chloride 11-15 Drug form: l (ANES) 01:02: INJ, ONCE, Lilian Stop date: 11/14/17 20:02:00 CDT rocuronium No Route: IV, M emoria (ANES) 11-15 Drug form: l 01:02: INJ, ONCE, Stop date: 11/14/17 20:02:00 CDT midazolam 0 No Route: IV, Me moria (ANES) 11-15 [...] CDT, Stop date: 11/14/17 19:55:00 CDT protamine 2018-0 No Route: IV, Me moria (ANES) 10 5-21 Drug form: l mg 23:55: INJ, Start date: 11/14/17 18:55:00 CDT, Stop date: 11/14/17 19:55:00 CDT protamine 2018-0 No Route: IV, Me moria (ANES) 10 5-21 Drug form: l mg 23:55: INJ, Start date: 11/14/17 18:55:00 CDT, Stop date: 11/14/17 19:55:00 CDT protamine 2018-0 No Route: IV, Me moria (ANES) 10 5-21 Drug form: l mg 23:55: INJ, Start date: 11/14/17 18:55:00 CDT, Stop date: 11/14/17 19:55:00 CDT heparin 2018-0 No Route: IV, Hossein [...] INJ, ONCE, Stop date: 11/14/17 18:08:00 CDT cefuroxime No Route: IV, M emoria (ANES) + 5-21 Drug form: l sterile 22:33: INJ, ONCE, Herm karina water Stop date: (ANES) 11/14/17 mL 17:33:00 CDT cefuroxime No Route: IV, M emoria (ANES) + 5-21 Drug form: l sterile 22:33: INJ, ONCE, Herm karina water Stop date: (ANES) 11/14/17 mL 17:33:00 CDT cefuroxime No Route: IV, M emoria (ANES) + 5-21 Drug form: l sterile 22:33: INJ, ONCE, Herm karina water Stop date: (ANES) 11/14/17 mL 17:33:00 CDT cefuroxime No Route: IV, M emoria (ANES) + 5-21 Drug form: l sterile 22:33: INJ, ONCE, Herm karina water Stop date: (ANES) 11/14/17 mL 17:33:00 CDT cefuroxime No Route: IV, M emoria (ANES) + 5-21 Drug form: l sterile 22:33: INJ, ONCE, Herm karina water Stop date: (ANES) 11/14/17 mL 17:33:00 CDT cefuroxime No Route: IV, M emoria (ANES) + 5-21 Drug form: l sterile 22:33: INJ, ONCE, Herm karina water Stop date: (ANES) 11/14/17 mL 17:33:00 CDT DOPamine No Route: IV, Mem oria (ANES) 3.2 5-21 Drug form: l mg 22:14: INJ, Start [place] date: 11/14/17 17:14:00 CDT, Stop date: 11/14/17 18:14:00 CDT DOPamine 0 No Route: IV, Mem oria (ANES) 3.2 5-21 Drug form: l mg 22:14: INJ, Start [place] date: 11/14/17 17:14:00 CDT, Stop date: 11/14/17 [...] CDT, Stop date: 11/14/17 18:14:00 CDT Enoxaparin No 40 mg, Memor ia 5-21 Route: l 22:00: SUB-Q, Drug form: INJ, [id number], Dosing Weight 61.818, kg, Start date: 11/14/17 17:00:00 CDT, Stop date: 12/13/17 17:00:00 CDT Dipyridamol No 75 mg, Hossein diana e 5-21 Route: PO, l 22:00: Drug form: TAB, BID, Dosing Weight 61.818, kg, Start date: 11/14/17 17:00:00 CDT, Duration: 30 day, Stop date: 12/14/17 9:00:00 CDT cilostazol No Notes: Memor ia 5-21 Non-Formul l 22:00: [facility]. (Same As: [place]) Vitamin C No Route: PO, Me moria 5-21 BID, l 22:00: Dosing Weight 61.818, kg, Start date: 11/14/17 17:00:00 CDT, Duration: 30 day, Stop date: 12/14/17 9:00:00 CDT Docusate No Notes: Memoria Sodium 100 5-21 (Same as: l MG Oral 22:00: Colace) [place] Capsule (Do Not Crush) Fish Oil No Route: PO, Mem oria 5-21 BID, l 22:00: Dosing Weight 61.818, kg, Start date: 11/14/17 17:00:00 CDT, Duration: 30 day, Stop date: 12/14/17 9:00:00 CDT Enoxaparin No 40 mg, Memor ia 5-21 Route: l 22:00: SUB-Q, Drug form: INJ, [id number], Dosing Weight 61.818, kg, Start date: 11/14/17 17:00:00 CDT, Stop date: 12/13/17 17:00:00 CDT Dipyridamol No 75 mg, Hossein diana e 5-21 Route: PO, l 22:00: Drug form: TAB, [...] (Same as: l MG Oral 22:00: Colace) [place] Capsule (Do Not Crush) Fish Oil No Route: PO, Mem oria 5-21 BID, l 22:00: Dosing Weight 61.818, kg, Start date: 11/14/17 17:00:00 CDT, Duration: 30 day, Stop date: 12/14/17 9:00:00 CDT Enoxaparin 2017-0 No 40 mg, Memor ia 5-21 Route: l 22:00: SUB-Q, [place] 00 Drug form: INJ, [id number], Dosing Weight 61.818, kg, Start date: 11/14/17 17:00:00 CDT, Stop date: 12/13/17 17:00:00 CDT Dipyridamol No 75 mg, Hossein diana e 11-14 Route: PO, l 22:00: Drug form: [place] TAB, BID, Dosing Weight 61.818, kg, Start [...] Route: l 22:00: SUB-Q, Drug form: INJ, [id number], Dosing Weight 61.818, kg, Start date: 11/14/17 17:00:00 CDT, Stop date: 12/13/17 17:00:00 CDT Dipyridamol 2018-0 No 75 mg, Hossein diana e 5-21 Route: PO, l 22:00: Drug form: [place] 00 TAB, BID, Dosing Weight 61.818, kg, [...] Docusate 2017-0 No Notes: Memoria Sodium 100 -21 (Same as: l MG Oral 22:00: Colace) [place] Capsule (Do Not Crush) Fish Oil No Route: PO, Mem oria 5-21 BID, l 22:00: Dosing Weight 61.818, kg, Start date: 11/14/17 17:00:00 CDT, Duration: 30 day, Stop date: 12/14/17 9:00:00 CDT Enoxaparin 2017-0 No 40 mg, Memor ia 5-21 Route: l 22:00: SUB-Q, Drug form: INJ, [id number], Dosing Weight 61.818, kg, Start date: 11/14/17 17:00:00 CDT, Stop date: 12/13/17 17:00:00 CDT Dipyridamol 2018-0 No 75 mg, Hossein diana e 5-21 Route: PO, l 22:00: Drug form: Jesús [...] Route: l 22:00: SUB-Q, Drug form: INJ, [id number], Dosing Weight 61.818, kg, Start date: 11/14/17 [...] Mem oria 5-21 BID, l 22:00: Dosing [place] 00 Weight 61.818, kg, Start date: 11/14/17 17:00:00 CDT, Duration: 30 day, Stop date: 12/14/17 9:00:00 CDT norepinephr No Route: IV, Memoria ine (ANES) 5-21 Drug form: l 32 21:53: INJ, Start Jesús microgram 00 date: 11/14/17 16:53:00 CDT, Stop date: 11/14/17 17:53:00 CDT norepinephr No Route: IV, Memoria ine (ANES) 5-21 Drug form: l 32 21:53: INJ, Start [place] microgram 00 date: 11/14/17 16:53:00 CDT, Stop date: 11/14/17 17:53:00 CDT norepinephr No Route: IV, Memoria ine (ANES) 5-21 Drug form: l 32 21:53: INJ, Start [place] microgram 00 date: 11/14/17 16:53:00 CDT, Stop date: 11/14/17 17:53:00 CDT norepinephr No Route: IV, Memoria ine (ANES) 5-21 Drug form: l 32 21:53: INJ, Start Jesú[place] microgram 00 date: 11/14/17 16:53:00 CDT, Stop date: 11/14/17 17:53:00 CDT norepinephr No Route: IV, Memoria ine (ANES) 5-21 Drug form: l 32 21:53: INJ, Start Jesús microgram 00 date: 11/14/17 16:53:00 CDT, Stop date: 11/14/17 17:53:00 CDT norepinephr No Route: IV, Memoria ine (ANES) 5-21 Drug form: l 32 21:53: INJ, Start Jesús microgram 00 date: 11/14/17 16:53:00 CDT, Stop date: 11/14/17 17:53:00 CDT midazolam No Route: IV, Me moria (ANES) 5-21 Drug form: l 21:52: SOLN, [place] 00 ONCE, Stop date: 11/14/17 16:52:00 CDT lidocaine 2018-0 No Route: IV, Me moria (ANES) 5-21 Drug form: l 21:52: INJ, ONCE, Stop date: 11/14/17 16:52:00 CDT fentaNYL 2018-0 No Route: IV, Mem oria (ANES) 5-21 Drug form: l 21:52: INJ, ONCE, Stop date: 11/14/17 16:52:00 CDT rocuronium 2018-0 No Route: IV, M emoria (ANES) 5- Drug form: l 21:52: INJ, ONCE, Stop date: 11/14/17 16:52:00 CDT Amidate 2018-0 No Route: IV, Hossein diana (ANES) 5- Drug form: l 21:52: INJ, ONCE, Stop date: 11/14/17 16:52:00 CDT midazolam 2018-0 No Route: IV, Me moria (ANES) 5-21 Drug form: l 21:52: SOLN, ONCE, Stop date: 11/14/17 16:52:00 CDT lidocaine 2018-0 No Route: IV, Me moria (ANES) 5-21 Drug form: l 21:52: INJ, ONCE, Stop date: 11/14/17 16:52:00 CDT fentaNYL 2018-0 No Route: IV, Mem oria (ANES) 5-21 Drug form: l 21:52: INJ, ONCE, Stop date: 11/14/17 16:52:00 CDT rocuronium 2018-0 No Route: IV, M emoria (ANES) 5-21 Drug form: l 21:52: INJ, ONCE, Stop date: 11/14/17 16:52:00 CDT Amidate 2018-0 No Route: IV, Hossein diana (ANES) 5-21 Drug form: l 21:52: INJ, ONCE, Stop date: 11/14/17 16:52:00 CDT midazolam 2018-0 No Route: IV, Me moria (ANES) 5-21 Drug form: l 21:52: SOLN, [place] 00 ONCE, Stop date: 11/14/17 16:52:00 CDT lidocaine 2018-0 No Route: IV, Me moria (ANES) 5-21 Drug form: l 21:52: INJ, ONCE, Stop date: 11/14/17 16:52:00 CDT fentaNYL 2018-0 No Route: IV, Mem oria (ANES) 5-21 Drug form: l 21:52: INJ, ONCE, Stop date: 11/14/17 16:52:00 CDT rocuronium 2018-0 No Route: IV, M emoria (ANES) 5- Drug form: l 21:52: INJ, ONCE, Stop date: 11/14/17 16:52:00 CDT Amidate 2018-0 No Route: IV, Hossein diana (ANES) 5- Drug form: l 21:52: INJ, ONCE, Stop date: 11/14/17 16:52:00 CDT midazolam 2018-0 No Route: IV, Me moria (ANES) 5-21 Drug form: l 21:52: SOLN, ONCE, Stop date: 11/14/17 16:52:00 CDT lidocaine 2018-0 No Route: IV, Me moria (ANES) 5-21 Drug form: l 21:52: INJ, ONCE, Stop date: 11/14/17 16:52:00 CDT fentaNYL 2018-0 No Route: IV, Mem oria (ANES) 5-21 Drug form: l 21:52: INJ, ONCE, Stop date: 11/14/17 16:52:00 CDT rocuronium 2018-0 No Route: IV, M emoria (ANES) 5-21 Drug form: l 21:52: INJ, ONCE, Stop date: 11/14/17 16:52:00 CDT Amidate 2018-0 No Route: IV, Hossein diana (ANES) 5-21 Drug form: l 21:52: INJ, ONCE, Stop date: 11/14/17 16:52:00 CDT midazolam 2018-0 No Route: IV, Me moria (ANES) 5- Drug form: l 21:52: SOLN, [place] 00 ONCE, Stop date: 11/14/17 16:52:00 CDT lidocaine 2018-0 No Route: IV, Me moria (ANES) 5- Drug form: l 21:52: INJ, ONCE, Stop date: 11/14/17 16:52:00 CDT fentaNYL 2018-0 No Route: IV, Mem oria (ANES) 5- Drug form: l 21:52: INJ, ONCE, Stop date: 11/14/17 16:52:00 CDT rocuronium 2017-0 No Route: IV, M emoria (ANES) 5- Drug form: l 21:52: INJ, ONCE, Stop date: 11/14/17 16:52:00 CDT Amidate 2017-0 No Route: IV, Hossein diana (ANES) 11-14 Drug form: l 21:52: INJ, ONCE, Stop date: 11/14/17 16:52:00 CDT midazolam 2017-0 No Route: IV, Me moria (ANES) 5- Drug form: l 21:52: SOLN, ONCE, Stop date: 11/14/17 16:52:00 CDT lidocaine 2017-0 No Route: IV, Me moria (ANES) 5- Drug form: l 21:52: INJ, ONCE, Stop date: 11/14/17 16:52:00 CDT fentaNYL 2018-0 No Route: IV, Mem oria (ANES) - Drug form: l 21:52: INJ, ONCE, Stop date: 11/14/17 16:52:00 CDT rocuronium 2018-0 No Route: IV, M emoria (ANES) 5- Drug form: l 21:52: INJ, ONCE, Stop date: 11/14/17 16:52:00 CDT Amidate 2017-0 No Route: IV, Hossein diana (ANES) - Drug form: l 21:52: INJ, ONCE, Stop date: 11/14/17 16:52:00 CDT Saline 2017-0 No Notes: Memoria Flush 0.9% 5-21 (Same as: l 21:49: BD [place] 00 Posiflush) POLYETHYLEN No Notes: Hossein diana E GLYCOL 5-21 Dissolve l 3350 21:49: in 8 oz of [place] 00 water or juice. (Same as: Miralax) Dulcolax No Notes: Memoria Laxative 5-21 (Same As: l 21:49: Dulcolax, [place] 00 Correctol) (Do Not Crush) "Do Not Crush" Ondansetron No Notes: Hossein diana 5-21 (Same as: l 21:49: Zofran) [place] 00 MEDICATION WASTE Product Size: 4 mg Product Wasted: __0_ mg Acetaminoph No Notes: Do M emoria en 5-21 not exceed l 21:49: 4 gm/day. [place] 00 (Same as: Tylenol) Morphine No Notes: Memoria 5-21 (Same l 21:49: as:MORPhin [place] 00 e Sulfate) Acetaminoph No Notes: Hossein diana en 325 MG / 5-21 (Same as: l Hydrocodone 21:49: Tram Lilian nn Bitartrate 00 325/5) Do 5 MG Oral not exceed Tablet 4gm/day of acetaminop hen. acetaminoph No Notes: Do M emoria en-codeine 5-21 not exceed l #3 21:49: 4gm/day of [place] 00 acetaminop hen. (Same as: Tylenol with Codeine # 3) Saline No Notes: Memoria Flush 0.9% 5-21 (Same as: l 21:49: BD [place] 00 Posiflush) POLYETHYLEN No Notes: Hossein diana E GLYCOL 5-21 Dissolve l 3350 21:49: in 8 oz of [place] 00 water or juice. (Same as: Miralax) Dulcolax No Notes: Memoria Laxative 5-21 (Same As: l 21:49: Dulcolax, [place] 00 Correctol) (Do Not Crush) "Do Not Crush" Ondansetron No Notes: Hossein diana 5-21 (Same as: l 21:49: Zofran) [place] 00 MEDICATION WASTE Product Size: 4 mg Product Wasted: __0_ mg Acetaminoph No Notes: Do M emoria en 5-21 not exceed l 21:49: 4 gm/day. [place] 00 (Same as: Tylenol) Morphine No Notes: Memoria 5-21 (Same l 21:49: as:MORPhin [place] 00 e Sulfate) Acetaminoph No Notes: Hossein diana en 325 MG / 5-21 (Same as: l Hydrocodone 21:49: Tram Lilian nn Bitartrate 00 325/5) Do 5 MG Oral not exceed Tablet 4gm/day of acetaminop hen. acetaminoph No Notes: Do M emoria en-codeine 5-21 not exceed l #3 21:49: 4gm/day of [place] acetaminop hen. (Same as: Tylenol with Codeine # 3) Saline No Notes: Memoria Flush 0.9% 5-21 (Same as: l 21:49: BD [place] Posiflush) POLYETHYLEN No Notes: Hossein diana E GLYCOL 5-21 Dissolve l 3350 21:49: in 8 oz of [place] 00 water or juice. (Same as: Miralax) [...] Notes: Memoria 5-21 (Same l 21:49: as:MORPhin [place] 00 e Sulfate) Acetaminoph No Notes: Hossein diana en 325 MG / 5-21 (Same as: l Hydrocodone 21:49: Tram Lilian nn Bitartrate 00 325/5) Do 5 MG Oral not exceed Tablet 4gm/day of acetaminop hen. acetaminoph No Notes: Do M emoria en-codeine 5-21 not exceed l #3 21:49: 4gm/day of [place] acetaminop hen. (Same as: Tylenol with Codeine # 3) Saline No Notes: Memoria Flush 0.9% 5-21 (Same as: l 21:49: BD [place] Posiflush) POLYETHYLEN No Notes: Hossein diana E GLYCOL 5-21 Dissolve l 3350 21:49: in 8 oz of [place] 00 water or juice. (Same as: Miralax) Dulcolax No Notes: Memoria Laxative 5-21 (Same As: l 21:49: Dulcolax, [place] 00 Correctol) (Do Not Crush) "Do Not Crush" Ondansetron No Notes: Hossein diana 5-21 (Same as: l 21:49: Zofran) [place] 00 MEDICATION WASTE Product Size: 4 mg Product Wasted: __0_ mg Acetaminoph No Notes: Do M emoria en 5-21 not exceed l 21:49: 4 gm/day. [place] (Same as: Tylenol) Morphine No Notes: Memoria 5-21 (Same l 21:49: as:MORPhin [place] 00 e Sulfate) Acetaminoph No Notes: Hossein diana en 325 MG / 5-21 (Same as: l Hydrocodone 21:49: Tram Lilian nn Bitartrate 00 325/5) Do 5 MG Oral not exceed Tablet 4gm/day of acetaminop hen. acetaminoph No Notes: Do M emoria en-codeine 5-21 not exceed l #3 21:49: 4gm/day of [place] acetaminop hen. (Same as: Tylenol with Codeine # 3) Saline No Notes: Memoria Flush 0.9% 5-21 (Same as: l 21:49: BD [place] Posiflush) POLYETHYLEN 2018-0 No Notes: Hossein diana E GLYCOL 5-21 Dissolve l 3350 21:49: in 8 oz of [place] water or juice. (Same as: Miralax) Dulcolax 2017- No Notes: Memoria Laxative 5-21 (Same As: l 21:49: Dulcolax, [place] Correctol) (Do Not Crush) "Do Not Crush" Ondansetron No Notes: Hossein diana 5-21 (Same as: l 21:49: Zofran) [place] 00 MEDICATION WASTE Product Size: 4 mg Product Wasted: __0_ mg Acetaminoph No Notes: Do M emoria en 5-21 not exceed l 21:49: 4 gm/day. [place] (Same as: Tylenol) Morphine No Notes: Memoria 5-21 (Same l 21:49: as:MORPhin [place] 00 e Sulfate) Acetaminoph No Notes: Hossein diana en 325 MG / 5-21 (Same as: l Hydrocodone 21:49: Tram Lilian nn Bitartrate 00 325/5) Do 5 MG Oral not exceed Tablet 4gm/day of acetaminop hen. acetaminoph No Notes: Do M emoria en-codeine 5-21 not exceed l #3 21:49: 4gm/day of [place] 00 acetaminop hen. (Same as: Tylenol with Codeine # 3) Saline No Notes: Memoria Flush 0.9% 5-21 (Same as: l 21:49: BD [place] 00 Posiflush) POLYETHYLEN No Notes: Hossein diana E GLYCOL 5-21 Dissolve l 3350 21:49: in 8 oz of [place] water or juice. (Same as: Miralax) Dulcolax No Notes: Memoria Laxative 5-21 (Same As: l 21:49: Dulcolax, [place] Correctol) (Do Not Crush) "Do Not Crush" [...] / 5-21 (Same as: l Hydrocodone 21:49: Tram Lilian nn Bitartrate 00 325/5) Do 5 MG Oral not exceed Tablet 4gm/day of acetaminop hen. acetaminoph No Notes: Do M emoria en-codeine 5-21 not exceed l #3 21:49: 4gm/day of [place] 00 acetaminop hen. (Same as: Tylenol with [...] CDT, Stop date: 11/14/17 17:15:00 CDT DOPamine 0 No Route: IV, Mem oria (ANES) 3.2 11-14 Drug form: l mg 21:08: INJ, date: 11/14/17 16:08:00 CDT, Stop date: 11/14/17 17:08:00 CDT DOPamine 0 No Route: IV, Mem oria (ANES) 3.2 11-14 Drug form: l mg 21:08: INJ, date: 11/14/17 16:08:00 CDT, Stop date: 11/14/17 17:08:00 CDT DOPamine 0 No Route: IV, Mem oria (ANES) 3.2 11-14 Drug form: l mg 21:08: INJ, date: 11/14/17 16:08:00 CDT, Stop date: 11/14/17 17:08:00 CDT DOPamine 0 No Route: IV, Mem oria (ANES) 3.2 - Drug form: l mg 21:08: INJ, date: 11/14/17 16:08:00 CDT, Stop date: 11/14/17 17:08:00 CDT DOPamine 0 No Route: IV, Mem oria (ANES) 3.2 5-21 Drug form: l mg 21:08: INJ, date: 11/14/17 16:08:00 CDT, Stop date: 11/14/17 17:08:00 CDT DOPamine 0 No Route: IV, Mem oria (ANES) 3.2 5- Drug form: l mg 21:08: INJ, date: 11/14/17 16:08:00 CDT, Stop date: 11/14/17 17:08:00 CDT Dopamine No Notes: Memoria 5-21 (Same as: l 20:57: Intropin) [place] 00 Administer by either central venous catheter [...] Memoria 5-21 (Same as: l 20:57: Intropin) [place] 00 Administer by either central venous catheter or peripheral ly-inserte d central catheter (PICC) line. Final conc = 3.2 mg/ml. Premix solution. Dopamine No Notes: Memoria 5-21 (Same as: l 20:57: Intropin) [place] 00 Administer by either central venous catheter or peripheral ly-inserte d central catheter (PICC) line. Final conc = 3.2 mg/ml. Premix solution. Dopamine No Notes: Memoria 5-21 (Same as: l 20:57: Intropin) [place] 00 Administer by either central venous catheter or peripheral ly-inserte d central catheter (PICC) line. Final conc = 3.2 mg/ml. Premix solution. Dopamine No Notes: Memoria 5-21 (Same as: l 20:57: Intropin) Administer by either central venous catheter or peripheral ly-inserte d central catheter (PICC) line. Final conc = 3.2 mg/ml. Premix solution. Sodium No 250 mL, Memoria Chloride 5-21 Route: l 0.9% IV 19:58: IVPB, Start date: 11/14/17 14:58:00 CDT, Duration: 30 day, Stop date: 12/14/17 14:57:00 CDT, PRN Line Flush BD Normal No Notes: Memori a Saline 5-21 (Same as: l Flush 19:58: BD [place] Posiflush) Sodium 2018-0 No 250 mL, Memoria Chloride 5-21 Route: l 0.9% IV 19:58: IVPB, [place] 00 Start date: 11/14/17 14:58:00 CDT, Duration: 30 day, Stop date: 12/14/17 14:57:00 CDT, PRN Line Flush BD Normal 2018-0 No Notes: Memori a Saline 5-21 (Same as: l Flush 19:58: BD [place] Posiflush) Sodium 2018-0 No 250 mL, Memoria Chloride 5-21 Route: l 0.9% IV 19:58: IVPB, [place] 00 Start date: 11/14/17 14:58:00 CDT, Duration: 30 day, Stop date: 12/14/17 14:57:00 CDT, PRN Line Flush BD Normal 2018-0 No Notes: Memori a Saline 5-21 (Same as: l Flush 19:58: BD [place] Posiflush) Sodium 2018-0 No 250 mL, Memoria Chloride 5-21 Route: l 0.9% IV 19:58: IVPB, [place] 00 Start date: 11/14/17 14:58:00 CDT, Duration: 30 day, Stop date: 12/14/17 14:57:00 CDT, PRN Line Flush BD Normal 2018-0 No Notes: Memori a Saline 5-21 (Same as: l Flush 19:58: BD [place] Posiflush) Sodium 2018-0 No 250 mL, Memoria Chloride 5-21 Route: l 0.9% IV 19:58: IVPB, [place] Start date: 11/14/17 14:58:00 CDT, Duration: 30 day, Stop date: 12/14/17 14:57:00 CDT, PRN Line Flush BD Normal 2018-0 No Notes: Memori a Saline 5-21 (Same as: l Flush 19:58: BD [place] Posiflush) Sodium 2018-0 No 250 mL, Memoria Chloride 5-21 Route: l 0.9% IV 19:58: IVPB, [place] 00 Start date: 11/14/17 14:58:00 CDT, Duration: 30 day, Stop date: 12/14/17 14:57:00 CDT, PRN Line Flush BD Normal No Notes: Memori a Saline 5-21 (Same as: l Flush 19:58: BD [place] Posiflush) Sodium No 750 mL, Memoria Chloride [...] 5-21 not exceed l 18:02: 4 gm/day. [place] (Same as: Tylenol) acetaminoph No Notes: Do M emoria en-codeine 5-21 not exceed l #3 18:02: 4gm/day of [place] 00 acetaminop hen. (Same as: Tylenol with Codeine # 3) Morphine No Notes: Memoria 5-21 (Same l 18:02: as:MORPhin [place] 00 e Sulfate) Sodium No 750 mL, Memoria Chloride 5-21 Rate: 75 l 0.9% IV 750 18:02: ml/hr, Herm karina mL 00 Infuse over: 10 hr, Route: IV, Dosing Weight 61.818 kg, Total Volume: 750, Start date: 11/14/17 13:02:00 CDT, Duration: 10 hr, Stop date: 11/14/17 23:01:00 CDT, 1.63, m2 Ondansetron No Notes: Hossein diana 5-21 (Same as: l 18:02: Zofran) [place] 00 MEDICATION WASTE Product Size: 4 mg Product Wasted: _0__ mg Acetaminoph No Notes: Do M emoria en 5-21 not exceed l 18:02: 4 gm/day. [place] (Same as: Tylenol) acetaminoph No Notes: Do M emoria en-codeine 5-21 not exceed l #3 18:02: 4gm/day of [place] 00 acetaminop hen. (Same as: Tylenol with Codeine # 3) Morphine No Notes: Memoria 5-21 (Same l 18:02: as:MORPhin [place] 00 e Sulfate) Sodium No 750 mL, [...] 5-21 not exceed l 18:02: 4 gm/day. [place] (Same as: Tylenol) acetaminoph No Notes: Do M emoria en-codeine 5-21 not exceed l #3 18:02: 4gm/day of acetaminop hen. (Same as: Tylenol with Codeine # 3) Morphine No Notes: Memoria 5-21 (Same l 18:02: as:MORPhin [place] 00 e Sulfate) Sodium No 750 mL, Memoria Chloride 5-21 Rate: 75 l 0.9% IV 750 18:02: ml/hr, Herm karina mL 00 Infuse over: 10 hr, Route: IV, Dosing Weight 61.818 kg, Total Volume: 750, Start date: 11/14/17 13:02:00 CDT, Duration: 10 hr, Stop date: 11/14/17 23:01:00 CDT, 1.63, m2 Ondansetron No Notes: Hossein diana 5-21 (Same as: l 18:02: Zofran) [place] MEDICATION WASTE Product Size: 4 mg Product Wasted: _0__ mg Acetaminoph No Notes: Do M emoria en 5-21 not exceed l 18:02: 4 gm/day. [place] (Same as: Tylenol) acetaminoph No Notes: Do M emoria en-codeine 5-21 not exceed l #3 18:02: 4gm/day of [place] acetaminop hen. (Same as: Tylenol with Codeine # 3) Morphine No Notes: Memoria 5-21 (Same l 18:02: as:MORPhin [place] 00 e Sulfate) Sodium No 750 mL, Memoria Chloride 5-21 Rate: 75 l 0.9% IV 750 18:02: ml/hr, Herm karina mL 00 Infuse over: 10 hr, Route: IV, Dosing Weight 61.818 kg, Total Volume: 750, Start date: 11/14/17 13:02:00 CDT, Duration: 10 hr, Stop date: 11/14/17 23:01:00 CDT, 1.63, m2 Ondansetron No Notes: Hossein diana 5-21 (Same as: l 18:02: Zofran) [place] 00 MEDICATION WASTE Product Size: 4 mg Product Wasted: _0__ mg Acetaminoph No Notes: Do M emoria en 5-21 not exceed l 18:02: 4 gm/day. [place] (Same as: Tylenol) acetaminoph No Notes: Do M emoria en-codeine 5-21 not exceed l #3 18:02: 4gm/day of [place] acetaminop hen. (Same as: Tylenol with Codeine # 3) Morphine No Notes: Memoria 5-21 (Same l 18:02: as:MORPhin [place] 00 e Sulfate) Sodium No 750 mL, [...] 5-21 not exceed l 18:02: 4 gm/day. [place] 00 (Same as: Tylenol) acetaminoph No Notes: Do M emoria en-codeine 5-21 not exceed l #3 18:02: 4gm/day of acetaminop hen. (Same as: Tylenol with Codeine # 3) Morphine No Notes: Memoria 5-21 (Same l 18:02: as:MORPhin e Sulfate) Sodium No 1,000 mL, Memori a Chloride 5-21 Rate: 100 l 0.9% IV 15:20: ml/hr, [place] 1,000 mL 00 Infuse over: 10 hr, Route: IV, Dosing Weight 61.818 kg, Total Volume: 1,000, Start date: 11/14/17 10:20:00 CDT, Duration: 30 day, Stop date: 12/14/17 10:19:00 CDT, 1.63, m2 Sodium 2017- No 1,000 mL, Memori a Chloride 5-21 [...] Rate: 100 l 0.9% IV 15:20: ml/hr, [place] 1,000 mL 00 Infuse over: 10 hr, Route: IV, Dosing Weight 61.818 kg, Total Volume: 1,000, Start date: 11/14/17 10:20:00 CDT, Duration: 30 day, Stop date: 12/14/17 10:19:00 CDT, 1.63, m2 Sodium 2018-0 No 1,000 mL, Memori a Chloride 5-21 Rate: 100 l 0.9% IV 15:20: ml/hr, [place] 1,000 mL 00 Infuse over: 10 hr, Route: IV, Dosing Weight 61.818 kg, Total Volume: 1,000, Start date: 11/14/17 10:20:00 CDT, Duration: 30 day, Stop date: 12/14/17 10:19:00 CDT, 1.63, m2 Vitamin B12 2018- Yes 2,500 Memor ia 2500 mcg 5-21 microgram l sublingual 14:55: = 1 tab, Her mckee tablet 00 SL, Daily, 0 Refill(s) Vitamin B12 2018- Yes 2,500 Memor ia 2500 mcg 5-21 microgram l sublingual 14:55: = 1 tab, Her [place] tablet 00 SL, Daily, 0 Refill(s) Vitamin B12 2018-0 Yes 2,500 Memor ia [...] Daily, 0 Kishore n 00 Refill(s) labetalol 0 No 1/2 tab, Hossein diana 100 mg oral 5-21 PO, BID, 0 l tablet 14:51: Refill(s) Kishore n 00 labetalol 2017- No 1/2 tab, Hossein diana 100 mg oral 5-21 PO, BID, 0 l tablet 14:51: Refill(s) Kishore n 00 labetalol No 1/2 tab, Hossein diana 100 mg oral 5-21 PO, BID, 0 l tablet 14:51: Refill(s) Kishore n 00 labetalol 0 No 1/2 tab, Hossein diana 100 mg [...] Black; E - Municipal Trash Bin Omnipaque 2017- No Notes: Memori a 350 5-11 (Same [...] 8-18 Route: PO, l 14:00: Drug form: [place] 00 EFTAB, QMon, Dosing Weight 65.909, kg, [...] 8-18 Route: PO, l 14:00: Drug form: [place] 00 EFTAB, QMon, Dosing Weight 65.909, kg, [...] 30 day, Stop date: 03/11/14 9:00:00 Fosamax 2013- No Notes: Memoria 8-18 Give 30 l 11:30: min before [place] 00 breakfast w/6oz water. Sit upright for 30 min after dose. "Do Not Crush" (Same as: Fosamax) Fosamax No Notes: Memoria 8-18 Give 30 l 11:30: min before [place] 00 breakfast w/6oz water. Sit upright for 30 min after dose. "Do Not Crush" (Same as: Fosamax) Fosamax No Notes: Memoria 8-18 Give 30 l 11:30: min before [place] 00 breakfast w/6oz water. Sit upright for 30 min after dose. "Do Not Crush" (Same as: Fosamax) Fosamax No Notes: Memoria 8-18 Give 30 l 11:30: min before [place] 00 breakfast w/6oz water. Sit upright for 30 min after dose. "Do Not Crush" (Same as: Fosamax) Fosamax No Notes: Memoria 8-18 Give 30 l 11:30: min before [place] 00 breakfast w/6oz water. Sit upright for [...] Q4H, Pain l Hydrocodone 13:32: Score 4-6, [place] Bitartrate 00 # 24 tab, 5 MG Oral 0 Tablet Refill(s) Lidocaine Yes Special Memor ia Hydrochlori 8-17 Instructio l de 0.05 13:32: ns: Remove Herm karina MG/MG 00 after 12 Transdermal hours Patch [Lidoderm] Acetaminoph Yes 1 tab, PO, Memoria en 325 MG / 8-17 Q4H, Pain l Hydrocodone 13:32: Score 4-6, [place] Bitartrate 00 # 24 tab, 5 MG Oral 0 Tablet Refill(s) Lidocaine Yes [facility] Hydrochlori 8-17 Instructio l de 0.05 13:32: ns: Remove Herm karina MG/MG 00 after 12 Transdermal hours Patch [Lidoderm] Acetaminoph Yes 1 tab, PO, Memoria en 325 MG / 8-17 Q4H, Pain l Hydrocodone 13:32: Score 4-6, [place] Bitartrate 00 # 24 tab, 5 MG Oral 0 Tablet Refill(s) Lidocaine Yes [facility] Hydrochlori 8-17 Instructio l de 0.05 13:32: ns: Remove Herm karina MG/MG 00 after 12 Transdermal hours Patch [Lidoderm] Acetaminoph Yes 1 tab, PO, Memoria en 325 MG / 8-17 Q4H, Pain l Hydrocodone 13:32: Score 4-6, [place] Bitartrate 00 # 24 tab, 5 MG [...] Refill(s) Lidocaine Yes [facility] Hydrochlori 17 Instructio l de 0.05 13:32: ns: Remove Herm karina MG/MG 00 after 12 Transdermal hours Patch [Lidoderm] Acetaminoph Yes 1 tab, PO, Memoria en 325 MG / 17 Q4H, Pain l Hydrocodone 13:32: Score 4-6, [place] Bitartrate 00 # 24 tab, 5 MG Oral 0 Tablet Refill(s) Magnesium 2013-0 No 2 gm, 50 Hossein diana Sulfate 8-17 mL, Route: l 12:59: IVPB, Drug Jesús 00 form: INJ, ONCE, Dosing Weight 65.909, kg, Start date: 02/10/14 7:59:00, Duration: 2 hr, Stop date: 02/10/14 7:59:00 Magnesium 2013-0 No 2 gm, 50 Hossein diana Sulfate 8-17 mL, Route: l 12:59: IVPB, Drug [place] 00 form: INJ, ONCE, Dosing Weight 65.909, [...] 2 hr, Stop date: 02/10/14 7:59:00 Magnesium 2013- No 2 gm, 50 Hossein diana Sulfate 8-17 mL, Route: l 12:59: IVPB, Drug form: INJ, ONCE, Dosing Weight 65.909, kg, Start date: 02/10/14 7:59:00, Duration: 2 hr, Stop date: 02/10/14 7:59:00 Atenolol 50 No Notes: Hossein diana MG Oral 8-16 (Same l Tablet 14:07: As:Tenormi Lilian nn 00 n) Lisinopril No Notes: [facility] 8-16 (Same as: l 14:07: Prinivil, [place] 00 Zestril) Atenolol 50 No Notes: Hossein diana MG Oral 8-16 (Same l Tablet 14:07: As:Tenormi Lilian nn 00 n) Lisinopril No Notes: [facility] 8-16 (Same as: l 14:07: Prinivil, Jesús 00 Zestril) Atenolol 50 No Notes: Hossein diana MG Oral 8-16 (Same l Tablet 14:07: As:Tenormi Lilian nn 00 n) Lisinopril No Notes: [facility] 8-16 (Same as: l 14:07: Prinivil, [place] 00 Zestril) Atenolol 50 No Notes: Hossein diana MG Oral 8-16 (Same l Tablet 14:07: As:Tenormi Lilian nn n) Lisinopril No Notes: [facility] 8-16 (Same as: l 14:07: Prinivil, [place] 00 Zestril) Atenolol 50 No Notes: Hossein diana MG Oral 8-16 (Same l Tablet 14:07: As:Tenormi Lilian nn 00 n) Lisinopril No Notes: [facility] 8-16 (Same as: l 14:07: Prinivil, [place] 00 Zestril) Atenolol 50 No Notes: Hossein diana MG Oral 8-16 (Same l Tablet 14:07: As:Tenormi Lilian nn 00 n) Lisinopril No Notes: [facility] 8-16 (Same as: l 14:07: Prinivil, [place] 00 Zestril) Lidocaine No Notes: Memori a [...] before applicatio n of new patch" Sodium 2014-0 No 250 mL, [facility] Chloride 8-14 Route: l 0.9% IV 21:19: IVPB, Jesús 00 Start date: 02/07/14 16:19:00, Duration: 30 day, Stop date: 03/09/14 16:18:00, PRN Line Flush BD Normal 2014-0 No Notes: Memori a Saline 8-14 (Same as: l Flush 21:19: BD [place] 00 Posiflush) Sodium 2014-0 No 250 mL, [facility]oria Chloride 8-14 Route: l 0.9% IV 21:19: IVPB, Jesús 00 Start date: 02/07/14 16:19:00, Duration: 30 day, Stop date: 03/09/14 16:18:00, PRN Line Flush BD Normal 2013-0 No Notes: Memori a Saline 8-14 (Same as: l Flush 21:19: BD Jesús 00 Posiflush) Sodium 2013-0 No 250 mL, Memoria Chloride 8-14 Route: l 0.9% IV 21:19: IVPB, [place] 00 Start date: 02/07/14 16:19:00, Duration: 30 day, Stop date: 03/09/14 16:18:00, PRN Line Flush BD Normal 2013-0 No Notes: Memori a Saline 8-14 (Same as: l Flush 21:19: BD [place] 00 Posiflush) Sodium 2014-0 No 250 mL, Memoria Chloride 8-14 Route: l 0.9% IV 21:19: IVPB, [place] 00 Start date: 02/07/14 16:19:00, Duration: 30 day, Stop date: 03/09/14 16:18:00, PRN Line Flush BD Normal 2013-0 No Notes: Memori a Saline 8-14 (Same as: l Flush 21:19: BD [place] 00 Posiflush) Sodium 2014-0 No 250 mL, Memoria Chloride 8-14 Route: l 0.9% IV 21:19: IVPB, [place] 00 Start date: 02/07/14 16:19:00, Duration: 30 day, Stop date: 03/09/14 16:18:00, PRN Line Flush BD Normal No Notes: Memori a Saline 8-14 (Same as: l Flush 21:19: BD [place] Posiflush) Sodium No 250 mL, Memoria Chloride 8 Route: l 0.9% IV 21:19: IVPB, [place] 00 Start date: 02/07/14 16:19:00, Duration: 30 day, Stop date: 03/09/14 16:18:00, PRN Line Flush BD Normal No Notes: Memori a Saline 8-14 (Same as: l Flush 21:19: BD [place] Posiflush) Flexeril No Notes: Memoria 8-14 (Same As: l 21:12: Flexeril) [place] 00 Flexeril No Notes: Memoria 8-14 (Same As: l 21:12: Flexeril) [place] 00 Flexeril No Notes: Memoria 8-14 (Same As: l 21:12: Flexeril) [place] 00 Flexeril No Notes: Memoria 8-14 (Same As: l 21:12: Flexeril) [place] 00 Flexeril No Notes: Memoria 8-14 (Same As: l 21:12: Flexeril) [place] 00 Flexeril No Notes: Memoria 8-14 (Same As: l 21:12: Flexeril) Enoxaparin No Notes: Memor ia 8-14 (Same as: l 17:00: Lovenox) [place] 00 Enoxaparin No Notes: Memor ia 8-14 (Same as: l 17:00: Lovenox) [place] 00 Enoxaparin No Notes: Memor ia 8-14 (Same as: l 17:00: Lovenox) [place] 00 Enoxaparin No Notes: Memor ia 8-14 (Same as: l 17:00: Lovenox) [place] 00 Enoxaparin No Notes: Memor ia 8-14 (Same as: l 17:00: Lovenox) [place] 00 Enoxaparin No Notes: Memor ia 8-14 (Same as: l 17:00: Lovenox) [place] 00 Sodium 2014-0 No 500 mL, Memoria Chloride 8-14 500 ml/hr, l 0.154 16:06: Infuse [place] MEQ/ML 00 Over: 1 Injectable hr, Route: Solution IV, 500, Drug form: INJ, ONCE, Priority: STAT, Dosing Weight 65.909 kg, Start date: 02/07/14 11:06:00, Duration: 1 doses or times, Stop date: 02/07/14 11:06:00 Sodium 2014-0 No 500 mL, Memoria Chloride 8-14 500 ml/hr, l 0.154 16:06: Infuse [place] MEQ/ML 00 Over: 1 Injectable hr, Route: Solution IV, 500, Drug form: INJ, ONCE, Priority: STAT, Dosing Weight 65.909 kg, Start date: 02/07/14 11:06:00, Duration: 1 doses or times, Stop date: 02/07/14 11:06:00 Sodium 2014-0 No 500 mL, Memoria Chloride 8-14 500 ml/hr, l 0.154 16:06: Infuse [place] MEQ/ML 00 Over: 1 Injectable hr, Route: [...] 8-14 500 ml/hr, l 0.154 16:06: Infuse [place] MEQ/ML 00 Over: 1 Injectable hr, Route: Solution IV, 500, Drug form: INJ, ONCE, Priority: STAT, Dosing Weight 65.909 kg, Start date: 02/07/14 11:06:00, Duration: 1 doses or times, Stop date: 02/07/14 11:06:00 Sodium 2013- No 500 mL, Memoria Chloride 8-14 500 ml/hr, l 0.154 16:06: Infuse [place] MEQ/ML 00 Over: 1 Injectable hr, Route: [...] 4 days Memor ia 8-14 l 16:03: [place] 00 Ketorolac No 4 days Memor ia 8-14 l 16:03: [place] 00 Ketorolac No 4 days Memor ia 8-14 l 16:03: [place] 00 Ketorolac No 4 days Memor ia 8-14 l 16:03: [place] 00 Ascorbic No Notes: Memoria Acid / 8-14 (Same as: l DELI/[employer] ASSOCIATE'S 14:00: Vitamin C) Jonas ann BROOM 00 Preparation / Diosmin / Hesperidin Aspirin / No Notes: Do Mem oria Calcium 8-14 not crush l Carbonate 14:00: or chew. Herm karina 00 (Same As: Ecotrin) Thyroxine No Notes: Memori a 8-14 Take 1 l 14:00: hour [place] 00 before or 2 hours after meal; Enteral feeds may interefere with the absorption of this medication .(Same as:Levothr oid, Synthroid) Ascorbic No Notes: Memoria Acid / 8-14 (Same as: l DELI/[employer]KERY ASSOCIATE'S 14:00: Vitamin C) He ann BROOM 00 Preparation / Diosmin / Hesperidin Aspirin / No Notes: Do Mem oria Calcium 8-14 not crush l Carbonate 14:00: or chew. Herm karina 00 (Same As: Ecotrin) Thyroxine No Notes: Memori a 8-14 Take 1 l 14:00: hour [place] 00 before or 2 hours after meal; Enteral feeds may interefere with the absorption of this medication .(Same as:Levothr oid, Synthroid) Ascorbic No Notes: Memoria Acid / 8-14 (Same as: l DELI/[employer] ASSOCIATE'S 14:00: Vitamin C) He rmann BROOM 00 [...] Memoria Acid / 8-14 (Same as: l DELI/[employer]ERY ASSOCIATE'S 14:00: Vitamin C) He ann BROOM 00 [...] Memoria Acid / 8-14 (Same as: l DELI/[employer] ASSOCIATE'S 14:00: Vitamin C) He ann BROOM 00 Preparation / Diosmin / Hesperidin Aspirin / No Notes: Do Mem oria Calcium 8-14 not crush l Carbonate 14:00: or chew. Herm karina 00 (Same As: Ecotrin) Thyroxine No Notes: Memori a 8-14 Take 1 l 14:00: hour [place] 00 before or 2 hours after meal; Enteral feeds may interefere with the absorption of this medication .(Same as:Levothr oid, Synthroid) Ascorbic No Notes: Memoria Acid / 8-14 (Same as: l DELI/[employer] ASSOCIATE[employer]S 14:00: Vitamin C) He rmann BROOM 00 [...] e 8-14 Tablet l 12:30: should not [place] 00 be chewed or crushed. (Same as: Protonix) Protonix No Notes: For Mem oria 8-14 IV push l 12:30: reconstitu [place] 00 te with 10 ml 0.9% sodium chloride and push over 2 minutes. (Same as: Protonix) pantoprazol No Notes: Hossein diana e 8-14 Tablet l 12:30: should not [place] 00 be chewed or crushed. (Same as: Protonix) Protonix No Notes: For Mem oria 8-14 IV push l 12:30: reconstitu [place] 00 te with 10 ml 0.9% sodium chloride and push over 2 minutes. (Same as: Protonix) pantoprazol No Notes: Hossein diana e 8-14 Tablet l 12:30: should not [place] 00 be chewed or crushed. (Same as: Protonix) Protonix No Notes: For Mem oria 8-14 IV push l 12:30: reconstitu [place] 00 te with 10 ml 0.9% sodium chloride and push over 2 minutes. (Same as: Protonix) pantoprazol No Notes: Hossein diana e 8-14 Tablet l 12:30: should not [place] 00 be chewed or crushed. (Same as: Protonix) Protonix No Notes: For Mem oria 8-14 IV push l 12:30: reconstitu [place] 00 te with 10 ml 0.9% sodium chloride and push over 2 minutes. (Same as: Protonix) pantoprazol 0 No Notes: Hossein diana e 8-14 Tablet l 12:30: should not [place] 00 be chewed or crushed. (Same as: Protonix) Protonix No Notes: For Mem oria 8-14 IV push l 12:30: reconstitu [place] 00 te with 10 ml 0.9% sodium chloride and push over 2 minutes. (Same as: Protonix) pantoprazol No Notes: Hossein diana e 8-14 Tablet l 12:30: should not [place] 00 be chewed or crushed. (Same as: Protonix) Magnesium 2014-0 No 2 gm, 50 Hossein diana Sulfate 8-14 mL, Route: l 10:48: IVPB, Drug [place] 00 form: INJ, ONCE, Dosing Weight 65.909, kg, Start date: 02/07/14 5:48:00, Duration: 2 hr, Stop date: 02/07/14 5:48:00 Magnesium 2014-0 No 2 gm, 50 Hossein diana Sulfate 8-14 mL, Route: l 10:48: IVPB, Drug [place] 00 form: INJ, ONCE, Dosing Weight 65.909, [...] 8-14 mL, Route: l 10:48: IVPB, Drug [place] 00 form: INJ, ONCE, Dosing Weight 65.909, [...] 8-14 mL, Route: l 10:47: IVPB, Drug [place] 00 form: INJ, ONCE, Dosing Weight 65.909, [...] 8-14 mL, Route: l 10:47: IVPB, Drug [place] 00 form: INJ, ONCE, Dosing Weight 65.909, kg, Start date: 02/07/14 5:47:00, Duration: 2 hr, Stop date: 02/07/14 5:47:00 Magnesium 2014-0 No 2 gm, 50 Hossein diana Sulfate 8-14 mL, Route: l 10:47: IVPB, Drug [place] 00 form: INJ, ONCE, Dosing Weight 65.909, [...] diana 8-14 (Same as: l 04:27: Apresoline [place] 00 ) Push over 5 minutes Hydralazine No Notes: Hossein diana 8-14 (Same as: l 04:27: Apresoline [place] 00 ) Push over 5 minutes Hydralazine No Notes: Hossein diana 8-14 (Same as: l 04:27: Apresoline [place] 00 ) Push over 5 minutes Hydralazine No Notes: Hossein diana 8-14 (Same as: l 04:27: Apresoline [place] 00 ) Push over 5 minutes Hydralazine No Notes: Hossein diana 8-14 (Same as: l 04:27: Apresoline [place] 00 ) Push over 5 minutes Hydralazine No Notes: Hossein diana 8-14 (Same as: l 04:27: Apresoline [place] 00 ) Push over 5 minutes Phenergan No 12.5 mg, Hossein diana 8-14 Route: l 04:21: IVPB, [place] 00 ONCE, Dosing Weight 65.909, kg, PRN Nausea & Vomiting, Start date: 02/06/14 23:21:00, Stop date: 03/08/14 23:20:00 Phenergan 2013-0 No 12.5 mg, Hossein diana 8-14 Route: l 04:21: IVPB, [place] 00 ONCE, Dosing Weight 65.909, kg, PRN Nausea & Vomiting, Start date: 02/06/14 23:21:00, Stop date: 03/08/14 23:20:00 Phenergan 2013-0 No 12.5 mg, Hossein diana 8-14 Route: l 04:21: IVPB, [place] 00 ONCE, Dosing Weight 65.909, kg, PRN Nausea & Vomiting, Start date: 02/06/14 23:21:00, Stop date: 03/08/14 23:20:00 Phenergan 2014-0 No 12.5 mg, Hossein diana 8-14 Route: l 04:21: IVPB, [place] 00 ONCE, Dosing Weight 65.909, kg, PRN Nausea & Vomiting, Start date: 02/06/14 23:21:00, Stop date: 03/08/14 23:20:00 Phenergan 2014-0 No 12.5 mg, Hossein diana 8-14 Route: l 04:21: IVPB, [place] 00 ONCE, Dosing Weight 65.909, kg, PRN Nausea & Vomiting, Start date: 02/06/14 23:21:00, Stop date: 03/08/14 23:20:00 Phenergan 2014-0 No 12.5 mg, Hossein diana 8-14 Route: l 04:21: IVPB, [place] 00 ONCE, Dosing Weight 65.909, kg, PRN Nausea & Vomiting, Start date: 02/06/14 23:21:00, Stop date: 03/08/14 23:20:00 Zinacef + 0 No Notes: Memori a Sodium 8-14 (Same As: l Chloride 02:11: Kefurox, Lilian nn 0.9% IV 100 00 Zinacef) mL Zinacef + 0 No Notes: Memori a Sodium 8-14 (Same As: l Chloride 02:11: Kefurox, Lilian nn 0.9% IV 100 00 Zinacef) mL Zinacef + 0 No Notes: Memori a Sodium 8-14 (Same As: l Chloride 02:11: Kefurox, Lilian nn 0.9% IV 100 00 Zinacef) mL Zinacef + 0 No Notes: Memori a Sodium 8-14 (Same As: l Chloride 02:11: Kefurox, Lilian nn 0.9% IV 100 00 Zinacef) mL Zinacef + 0 No Notes: Memori a Sodium 8-14 (Same As: l Chloride 02:11: Kefurox, Lilian nn 0.9% IV 100 00 Zinacef) mL Zinacef + 0 No Notes: Memori a Sodium 8-14 (Same [...] Memoria 8-13 (Same as: l 22:35: Sublimaze) [place] Preservati ve free. cilostazol No Notes: Memor ia 8-13 Non-Formul l 22:00: david Drug. [place] (Same As: Pletal) Fish Oil No Route: PO, Mem oria 8-13 BID, l 22:00: Dosing [place] 00 Weight 65.909, kg, Start date: 02/06/14 17:00:00, Duration: 30 day, Stop date: 03/08/14 9:00:00 Docusate No Notes: Memoria Sodium 100 8-13 (Same as: l MG Oral 22:00: Colace) [place] Capsule 00 (Do Not Crush) Vitamin C No Route: PO, Me moria 8-13 BID, l 22:00: Dosing Weight 65.909, kg, Start date: 02/06/14 17:00:00, Duration: 30 day, Stop date: 03/08/14 9:00:00 cilostazol No Notes: Memor ia 8-13 Non-Formul l 22:00: david Drug. [place] (Same As: Pletal) Fish Oil No Route: PO, Mem oria 8-13 BID, l 22:00: Dosing [place] 00 Weight 65.909, kg, Start date: 02/06/14 17:00:00, Duration: 30 day, Stop date: 03/08/14 9:00:00 Docusate No Notes: Memoria Sodium 100 8-13 (Same as: l MG Oral 22:00: Colace) [place] Capsule 00 (Do Not Crush) Vitamin C No Route: PO, Me moria 8-13 BID, l 22:00: Dosing [place] 00 Weight 65.909, kg, Start date: 02/06/14 17:00:00, [...] (Same as: l MG Oral 22:00: Colace) [place] Capsule 00 (Do Not Crush) Vitamin C No Route: PO, Me moria 8-13 BID, l 22:00: Dosing Weight 65.909, kg, Start date: 02/06/14 17:00:00, Duration: 30 day, Stop date: 03/08/14 9:00:00 cilostazol No Notes: Memor ia 8-13 Non-Formul l 22:00: david Drug. [place] 00 (Same As: Pletal) Fish Oil No Route: PO, Mem oria 8-13 BID, l 22:00: Dosing Weight 65.909, kg, Start date: 02/06/14 17:00:00, Duration: 30 day, Stop date: 03/08/14 9:00:00 Docusate No Notes: Memoria Sodium 100 8-13 (Same as: l MG Oral 22:00: Colace) [place] Capsule 00 (Do Not Crush) Vitamin C No Route: PO, Me moria 8-13 BID, l 22:00: Dosing Weight 65.909, kg, Start date: 02/06/14 17:00:00, Duration: 30 day, Stop date: 03/08/14 9:00:00 cilostazol No Notes: Memor ia 8-13 Non-Formul l 22:00: david Drug. [place] 00 (Same As: Pletal) Fish Oil No [...] 03/08/14 9:00:00 Albumin No Notes: Memoria Human, [facility] 02-06 LOT#: l 50 MG/ML 20:51: Her mckee Injectable 00 ___ Solution Mfg: (Same as: Albuminar) "blood product derivative " Albumin No Notes: Memoria Human, [facility] 02-06 LOT#: l 50 MG/ML 20:51: Her mckee Injectable 00 ___ Solution Mfg: (Same as: Albuminar) "blood product derivative " Albumin No Notes: Fidelina Mcdermott [facility] 02-06 LOT#: l 50 MG/ML 20:51: Her [...] derivative " Albumin No Notes: Fidelina Mcdermott [facility] 02-06 LOT#: l 50 MG/ML 20:51: Her mckee Injectable 00 ___ Solution Mfg: (Same as: Albuminar) "blood product derivative " Zofran No Notes: Memoria 02-06 (Same as: l 20:50: Zofran) [place] 00 Norepinephr No Notes: Hossein diana ine 02-06 Same as: l 20:50: Levophed. [place] 00 Administer by either central venous catheter or peripheral ly-inserte d central catheter (PICC) line. Concentrat ion: 0.032 mg / mL Zofran No Notes: Memoria 02-06 (Same as: l 20:50: Zofran) [place] 00 Norepinephr No Notes: Hossein diana ine 02-06 Same as: l 20:50: Levophed. [place] Administer by either central venous catheter or peripheral ly-inserte d central catheter (PICC) line. Concentrat ion: 0.032 mg / mL Zofran No Notes: Memoria 02-06 (Same as: l 20:50: Zofran) [place] 00 Norepinephr No Notes: Hossein diana ine 02-06 Same as: l 20:50: Levophed. [place] 00 Administer by either central venous catheter or peripheral ly-inserte d central catheter (PICC) line. Concentrat ion: 0.032 mg / mL Zofran No Notes: Memoria 02-06 (Same as: l 20:50: Zofran) [place] 00 Norepinephr No Notes: Hossein diana ine 02-06 Same as: l 20:50: Levophed. [place] 00 Administer by either central venous catheter or peripheral ly-inserte d central catheter (PICC) line. Concentrat ion: 0.032 mg / mL Zofran No Notes: Memoria 02-06 (Same as: l 20:50: Zofran) [place] 00 Norepinephr No Notes: Hossein diana ine 02-06 Same as: l 20:50: Levophed. [place] 00 Administer by either central venous catheter or peripheral ly-inserte d central catheter (PICC) line. Concentrat ion: 0.032 mg / mL Zofran No Notes: Memoria 02-06 (Same as: l 20:50: Zofran) Norepinephr No Notes: Hossein diana ine 02-06 Same as: l 20:50: Levophed. [place] 00 Administer by either central venous catheter or peripheral ly-inserte d central catheter (PICC) line. Concentrat ion: 0.032 mg / mL Albumin No Notes: Ummoria Human, [facility] 02-06 LOT#: l 50 MG/ML 19:58: Her mckee Injectable 00 ___ Solution Mfg: (Same as: Albuminar) "blood product derivative " Albumin No Notes: Memoria Human, [facility] 02-06 LOT#: l 50 MG/ML 19:58: Her mckee Injectable 00 ___ Solution Mfg: (Same as: Albuminar) "blood product derivative " Albumin No Notes: Fidelina Mcdermott, [facility] 02-06 LOT#: l 50 MG/ML 19:58: Her mckee Injectable 00 ___ Solution Mfg: (Same as: Albuminar) "blood product derivative " Albumin No Notes: Fidelina Mcdermott, 02-06 LOT#: l 50 MG/ML 19:58: Her mckee Injectable 00 ___ Solution Mfg: (Same as: Albuminar) "blood product derivative " Albumin No Notes: Fidelina Mcdermott, 02-06 LOT#: l 50 MG/ML 19:58: Her mckee Injectable 00 ___ Solution Mfg: (Same as: Albuminar) "blood product derivative " Albumin No Notes: Fidelina Mcdermott, [facility] 02-06 LOT#: l 50 MG/ML 19:58: Her mckee Injectable 00 ___ Solution Mfg: (Same as: Albuminar) "blood product derivative " Calcium 2013-0 No 1,000 mg, Memor ia Gluconate - 50 mL, l 19:57: Route: [place] IVPB, Drug form: INJ, ONCE, Dosing Weight 65.909, kg, Start date: 02/06/14 14:57:00, Stop date: 02/06/14 14:57:00 Calcium 2014-0 No 1,000 mg, Memor ia Gluconate 8- 50 mL, l 19:57: Route: [place] 00 [...] Gluconate 8-13 50 mL, l 19:57: Route: [place] 00 IVPB, Drug form: INJ, ONCE, Dosing Weight 65.909, kg, Start date: 02/06/14 14:57:00, Stop date: 02/06/14 14:57:00 Calcium 2014-0 No 1,000 mg, Memor ia Gluconate 8-13 50 mL, l 19:57: Route: [place] 00 IVPB, Drug form: INJ, ONCE, Dosing Weight 65.909, kg, Start date: 02/06/14 14:57:00, Stop date: 02/06/14 14:57:00 Calcium 2014-0 No 1,000 mg, Memor ia Gluconate 8-13 50 mL, l 19:57: Route: [place] 00 IVPB, Drug form: INJ, ONCE, Dosing Weight 65.909, kg, Start date: 02/06/14 14:57:00, Stop date: 02/06/14 14:57:00 Dextrose 2014-0 No 50 mL, Memoria 50% in 02-06 Route: l Water IV 19:22: IVP, Start Her mckee date: 02/06/14 14:22:00, Duration: 30 day, Stop date: 03/08/14 14:21:00, PRN See Nurse's Notes Dextrose 2014-0 No 50 mL, Memoria 50% in 02-06 Route: l Water IV 19:22: IVP, Start Her mckee date: 02/06/14 14:22:00, Duration: 30 day, Stop date: 03/08/14 14:21:00, PRN See Nurse's Notes Dextrose 2014-0 No 50 mL, Memoria 50% in 02-06 Route: l Water IV 19:22: IVP, Start Her mckee date: 02/06/14 14:22:00, Duration: 30 day, Stop date: 03/08/14 14:21:00, PRN See Nurse's Notes Dextrose 2013-0 No 50 mL, Memoria 50% in 8- Route: l Water IV 19:22: IVP, Start Her mckee 00 date: 02/06/14 14:22:00, Duration: 30 day, Stop date: 03/08/14 14:21:00, PRN See Nurse's Notes Dextrose 2013-0 No 50 mL, Memoria 50% in 8- Route: l Water IV 19:22: IVP, Start Her mckee 00 date: 02/06/14 14:22:00, Duration: 30 day, Stop date: 03/08/14 14:21:00, PRN See Nurse's Notes Dextrose 2013-0 No 50 mL, Memoria 50% in - Route: l Water IV 19:22: IVP, Start [...] from ____Date Insulin 2013-0 No 60 units) Ohssein diana regular 100 8-13 Stable for l unit + 19:21: 28 days at Lilian nn Sodium 00 room Chloride temperatur 0.9% IV 99 e Expires mL in days from ____Date Insulin No 60 units) Hossein diana regular 100 8-13 Stable for l unit + 19:21: 28 days at Lilian nn Sodium 00 room Chloride temperatur 0.9% IV 99 e Expires mL in days from ____Date Saline No Notes: Memoria Flush 0.9% 02-06 (Same as: l 19:14: BD [place] 00 Posiflush) D5W 1/2NS + No Notes: Hossein diana KCL 20mEq/L 02-06 PREMIX IV l 1000ml 19:14: - Do Not [place] (Premix) 00 Alter 1,000 mL Acetaminoph No Notes: Do M emoria en 325 MG / 02-06 not exceed l Hydrocodone 19:14: 4gm/day of [place] Bitartrate 00 acetaminop 10 MG Oral hen. (Same Tablet as: Tram 325/10) Morphine No Notes: Memoria 02-06 (Same l 19:14: as:MORPhin [place] 00 e Sulfate) Acetaminoph No Notes: Do M emoria en 02-06 not exceed l 19:14: 4 gm/day. [place] 00 (Same as: Tylenol) acetaminoph No Notes: Do M emoria en-codeine 02-06 not exceed l #3 19:14: 4gm/day of Jesús 00 acetaminop hen. (Same as: Tylenol with Codeine # 3) Acetaminoph No Notes: Hossein diana en 325 MG / 02-06 (Same as: l Hydrocodone 19:14: Tram Lilian nn Bitartrate 00 325/5) Do 5 MG Oral not exceed Tablet 4gm/day of acetaminop hen. Saline No Notes: Memoria Flush 0.9% 8-13 (Same as: l 19:14: BD [place] 00 Posiflush) D5W 1/2NS + No Notes: Hossein diana KCL 20mEq/L 8- PREMIX IV l 1000ml 19:14: - Do Not [place] (Premix) 00 Alter 1,000 mL Acetaminoph No Notes: Do M emoria en 325 MG / 8 not exceed l Hydrocodone 19:14: 4gm/day of [place] Bitartrate 00 acetaminop 10 MG Oral hen. (Same Tablet as: Tram 325/10) Morphine No Notes: Memoria 8-13 (Same l 19:14: as:MORPhin [place] 00 e Sulfate) Acetaminoph No Notes: Do M emoria en 8-13 not exceed l 19:14: 4 gm/day. [place] 00 (Same as: Tylenol) acetaminoph No Notes: Do M emoria en-codeine 8- not exceed l #3 19:14: 4gm/day of Jes[place] 00 acetaminop hen. (Same as: Tylenol with Codeine # 3) Acetaminoph No Notes: Hossein diana en 325 MG / 8- (Same as: l Hydrocodone 19:14: Tram Lilian nn Bitartrate 00 325/5) Do 5 MG Oral not exceed Tablet 4gm/day of acetaminop hen. Saline No Notes: Memoria Flush 0.9% 8-13 (Same as: l 19:14: BD [place] 00 Posiflush) D5W 1/2NS + No Notes: Hossein diana KCL 20mEq/L 8-13 PREMIX IV l 1000ml 19:14: - Do Not [place] (Premix) 00 Alter 1,000 mL Acetaminoph No Notes: Do M emoria en 325 MG / 8-13 not exceed l Hydrocodone 19:14: 4gm/day of [place] Bitartrate 00 acetaminop 10 MG Oral hen. (Same Tablet as: Tram 325/10) Morphine No Notes: Memoria 8-13 (Same l 19:14: as:MORPhin [place] 00 e Sulfate) Acetaminoph No Notes: Do M emoria en 02-06 not exceed l 19:14: 4 gm/day. [place] 00 (Same as: Tylenol) acetaminoph No Notes: Do M emoria en-codeine 02-06 not exceed l #3 19:14: 4gm/day of [place] 00 acetaminop hen. (Same as: Tylenol with Codeine # 3) Acetaminoph No Notes: Hossein diana en 325 MG / 02-06 (Same as: l Hydrocodone 19:14: Tram Lilian nn Bitartrate 00 325/5) Do 5 MG Oral not exceed Tablet 4gm/day of acetaminop hen. Saline No Notes: Memoria Flush 0.9% 02-06 (Same as: l 19:14: BD [place] 00 Posiflush) D5W 1/2NS + No Notes: Hossein diana KCL 20mEq/L 02-06 PREMIX IV l 1000ml 19:14: - Do Not [place] (Premix) 00 Alter 1,000 mL Acetaminoph No Notes: Do M emoria en 325 MG / 02-06 not exceed l Hydrocodone 19:14: 4gm/day of [place] Bitartrate 00 acetaminop 10 MG Oral hen. (Same Tablet as: Tram 325/10) Morphine No Notes: Memoria 02-06 (Same l 19:14: as:MORPhin [place] 00 e Sulfate) Acetaminoph No Notes: Do M emoria en 02-06 not exceed l 19:14: 4 gm/day. [place] 00 (Same as: Tylenol) acetaminoph No Notes: Do M emoria en-codeine 02-06 not exceed l #3 19:14: 4gm/day of [place] 00 acetaminop hen. (Same as: Tylenol with Codeine # 3) Acetaminoph No Notes: Hossein diana en 325 MG / 02-06 (Same as: l Hydrocodone 19:14: Tram Lilian nn Bitartrate 00 325/5) Do 5 MG Oral not exceed Tablet 4gm/day of acetaminop hen. Saline No Notes: Memoria Flush 0.9% 8-13 (Same as: l 19:14: BD [place] 00 Posiflush) D5W 1/2NS + No Notes: Hossein diana KCL 20mEq/L 8-13 PREMIX IV l 1000ml 19:14: - Do Not [place] (Premix) 00 Alter 1,000 mL Acetaminoph No Notes: Do M emoria en 325 MG / 8- not exceed l Hydrocodone 19:14: 4gm/day of Jes[place] Bitartrate 00 acetaminop 10 MG Oral hen. (Same Tablet as: Tram 325/10) Morphine No Notes: Memoria 8-13 (Same l 19:14: as:MORPhin [place] 00 e Sulfate) Acetaminoph No Notes: Do M emoria en 8-13 not exceed l 19:14: 4 gm/day. [place] 00 (Same as: Tylenol) acetaminoph No Notes: Do M emoria en-codeine 8- not exceed l #3 19:14: 4gm/day of [place] 00 acetaminop hen. (Same as: Tylenol with Codeine # 3) Acetaminoph No Notes: Hossein diana en 325 MG / 8-13 (Same as: l Hydrocodone 19:14: Tram Lilian nn Bitartrate 00 325/5) Do 5 [...] not exceed l Hydrocodone 19:14: 4gm/day of [place] Bitartrate 00 acetaminop 10 MG Oral hen. (Same Tablet as: Tram 325/10) Morphine No Notes: Memoria 8-13 (Same l 19:14: as:MORPhin Jesús 00 e Sulfate) Acetaminoph No Notes: Do M emoria en 02-06 not exceed l 19:14: 4 gm/day. Jesú[place] 00 (Same as: Tylenol) acetaminoph No Notes: Do M emoria en-codeine 02-06 not exceed l #3 19:14: 4gm/day of Jesús 00 acetaminop hen. (Same as: Tylenol with Codeine # 3) Acetaminoph No Notes: Hossein diana en 325 MG / 02-06 (Same as: l Hydrocodone 19:14: Tram Lilian nn Bitartrate 00 325/5) Do 5 MG Oral not exceed Tablet 4gm/day of acetaminop hen. levothyroxi Yes Daily, 0 Me moria ne 50 mcg 808 Refill(s) l (0.05 mg) 16:02: [place] oral tablet 00 Nitroglycer Yes 1 inch, [...] mcg 8-08 Refill(s) l (0.05 mg) 16:02: [place] oral tablet 00 Nitroglycer Yes 1 inch, [...] 8-08 tab, l Tablet 16:02: Daily, 0 [place] 00 Refill(s) dipyridamol Yes 75 mg = 1 M emoria e 75 mg 8-08 tab, PO, l oral tablet 16:02: BID, 0 Herm karina 00 Refill(s) cilostazol Yes 100 mg = 1 M emoria 100 mg oral 8-08 tab, PO, l tablet 16:02: BID, 0 [place] 00 Refill(s) lisinopril Yes 10 mg = 1 Me moria 10 mg oral 8-08 tab, PO, l tablet 16:02: Bedtime, 0 Lilian nn 00 Refill(s) levothyroxi Yes Daily, 0 Me moria ne 50 mcg 808 Refill(s) l (0.05 mg) 16:02: [place] oral tablet 00 Nitroglycer Yes 1 inch, Mem oria in 0.02 8-08 Daily, 0 l MG/MG 16:02: Refill(s) [place] Topical 00 Ointment simvastatin Yes 10 mg [...] 8-08 tab, l Tablet 16:02: Daily, 0 [place] 00 Refill(s) dipyridamol Yes 75 mg = 1 M emoria e 75 mg 8-08 tab, PO, l oral tablet 16:02: BID, 0 Herm karina 00 Refill(s) cilostazol Yes 100 mg = 1 M emoria 100 mg oral 8-08 tab, PO, l tablet 16:02: BID, 0 [place] 00 Refill(s) lisinopril Yes 10 mg = [...] 8-08 tab, l Tablet 16:02: Daily, 0 [place] 00 Refill(s) dipyridamol Yes 75 mg = [...] 8-08 tab, l Tablet 16:02: Daily, 0 [place] 00 Refill(s) dipyridamol Yes 75 mg = 1 M emoria e 75 mg 8-08 tab, PO, l oral tablet 16:02: BID, 0 Herm karina 00 Refill(s) cilostazol Yes 100 mg = 1 M emoria 100 mg oral 8-08 tab, PO, l tablet 16:02: BID, 0 [place] 00 Refill(s) lisinopril Yes 10 mg = 1 Me moria 10 mg oral 8-08 tab, PO, l tablet 16:02: Bedtime, 0 Lilian nn 00 Refill(s) levothyroxi Yes Daily, 0 Me moria ne 50 mcg 8-08 Refill(s) l (0.05 mg) 16:02: Jesús oral tablet 00 Nitroglycer Yes 1 inch, Mem oria in 0.02 8-08 Daily, 0 l MG/MG 16:02: Refill(s) [place] Topical 00 Ointment simvastatin Yes 10 mg = 1 M emoria 10 mg oral 8-08 tab, PO, l tablet 16:02: Bedtime, # Lilian nn 00 30 tab, 0 Refill(s) Aspirin Low Yes PO, Daily, Memoria Dose 81 mg 8-08 0 l oral tablet 16:02: Refill(s) H ermann 00 Atenolol 50 Yes 50 mg = 1 M emoria MG Oral 02-01 tab, l Tablet 16:02: Daily, 0 Jesús Refill(s) dipyridamol Yes 75 mg = 1 M emoria e 75 mg 808 tab, PO, l oral tablet 16:02: BID, 0 Herm karina Refill(s) cilostazol Yes 100 mg = 1 M emoria 100 mg oral 02-01 tab, PO, l tablet 16:02: BID, 0 Jesús Refill(s) lisinopril Yes 10 mg = 1 Me moria 10 mg oral 08 tab, PO, l tablet 16:02: Bedtime, 0 Lilian Refill(s) Cefuroxime No Notes: Memor ia 8-08 (Same As: l 15:00: Kefurox, Jesús 00 Zinacef) Cefuroxime No Notes: Memor ia 8-08 (Same As: l 15:00: Kefurox, Jesús 00 Zinacef) Cefuroxime No Notes: Memor ia 8-08 (Same As: l 15:00: Kefurox, Jesús 00 Zinacef) Cefuroxime No Notes: Memor ia 8-08 (Same As: l 15:00: Kefurox, [place] 00 Zinacef) Cefuroxime No Notes: Memor ia 8-08 (Same As: l 15:00: Kefurox, [place] 00 Zinacef) Cefuroxime No Notes: Memor ia 8-08 (Same As: l 15:00: Kefurox, Jesús 00 Zinacef) predniSONE Yes Liana 20 mg, 1 Memoria 20 mg oral 03-02 Ahmed tab, PO, l tablet 18:39: Badar Daily, [place] 38 Please Take One Tab po for [...] 03-02 Ahmed Q4H, 50 l tablet 17:57: Badching tabJesús 09 Substituti on Allowed tramadol 50 Yes Liana 1-2, PO, Memoria mg oral 9-06 Ahmed Q4H, 50 l tablet 17:57: Badar tabJesús 09 Substituti on Allowed tramadol 50 Yes Liana 1-2, PO, Memoria mg oral 9- Ahmed Q4H, 50 l tablet 17:57: Badar tabJesús 09 Substituti on Allowed tramadol 50 Yes Liana 1-2, PO, Memoria mg oral 9- Ahmed Q4H, 50 l tablet 17:57: Badar tabJesús 09 Substituti on Allowed tramadol 50 Yes Liana 1-2, PO, Memoria mg oral 9- Ahmed Q4H, 50 l tablet 17:57: Badar tabJesús 09 Substituti on Allowed tramadol 50 Yes Liana 1-2, PO, Memoria mg oral - Ahmed Q4H, 50 l tablet 17:57: Badar tabJesús 09 Substituti on Allowed predniSONE No Liana 1 mg, 1 M emoria taper daily 03-02 Ahmed tab, PO, l 17:56: Badar Daily, 3 [place] 51 tab, Substituti on Allowed, Please Take 1 Tab for Three Days then 1/2 Tab for 3 days then stopPlease Take 1 Tab for Three Days then 1/2 Tab for 3 days then stop predniSONE No Liana 1 mg, 1 M emoria taper daily 03-02 Ahmed tab, PO, l 17:56: Badar Daily, 3 [place] 51 tab, Substituti on Allowed, Please Take 1 Tab for Three Days then 1/2 Tab for 3 days then stopPlease Take 1 Tab for Three Days then 1/2 Tab for 3 days then stop predniSONE No Liana 1 mg, 1 M emoria taper daily 03-02 Ahmed tab, PO, l 17:56: Badar Daily, 3 [place] 51 tab, Substituti on Allowed, Please Take [...] tab, PO, l 17:56: Badar Daily, 3 [place] 51 tab, Substituti on Allowed, Please Take [...] ipratropium Yes Liana 0.5 mg, Memoria 0.02% 06 Ahmed NEB, Q8H, l inhalation 17:56: Badar PRN, 25 Her mckee solution 31 ea, wheezing, Substituti on Allowed ipratropium Yes Liana 0.5 mg, Memoria 0.02% 06 Ahmed NEB, Q8H, l inhalation 17:56: Badar [...] oral 03-02 Special l tablet 17:06: Yoselin Quintana nn 12 ns, PO, Daily, 12 day regimen: Days 1-4 - 40 mg (2 tabs) daily Days 5-8 - 20 mg (1 tab) daily Days 9-12 - 10 mg (1/2 tab) daily, 12 tab, Substituti on [id number] day regimen: Days 1-4 - 40 mg [...] (1/2 tab) daily, 12 tab, Substituti on [id number] day regimen: Days 1-4 - 40 mg [...] (1/2 tab) daily, 12 tab, Substituti on [id number] day regimen: Days 1-4 - 40 mg [...] (1/2 tab) daily, 12 tab, Substituti on [id number] day regimen: Days 1-4 - 40 mg [...] (1/2 tab) daily, 12 tab, Substituti on [id number] day regimen: Days 1-4 - 40 mg (2 tabs) daily Days 5-8 - 20 mg (1 tab) daily Days 9-12 - 10 mg (1/2 tab) daily predniSONE 0 No See Memoria 20 mg oral 03-02 Special l tablet 17:06: Yoselin loving 12 ns, PO, Daily, 12 day regimen: Days 1-4 - 40 mg (2 tabs) daily Days 5-8 - 20 mg (1 tab) daily Days 9-12 - 10 mg (1/2 tab) daily, 12 tab, Substituti on [id number] day regimen: Days 1-4 - 40 mg (2 tabs) daily Days 5-8 - 20 mg (1 tab) daily Days 9-12 - 10 mg (1/2 tab) daily potassium No Liana 20 mEq, 1 Memoria chloride 20 - Ahmed tab, l mEq oral 14:00: Badar [...] 30 day, Stop date: 03/31/13 9:00:00 potassium 0 No Liana 20 mEq, 1 Memoria chloride [...] Liana 20 mEq, 1 Memoria chloride 20 - Ahmed tab, l mEq oral 14:00: Badar Route: PO, Jonas rmann tablet, 00 Drug form: extended ERTAB, release Daily, Dosing Weight 65, kg, Start date: 03/02/13 9:00:00, Duration: 30 day, Stop date: 03/31/13 9:00:00 predniSONE 2012-0 No Liana 40 mg, 2 Memoria - [...] Liana 20 mEq, 1 Memoria chloride 20 - Ahmed tab, l mEq oral 14:00: Badar Route: PO, He rmann tablet, 00 Drug form: extended ERTAB, release Daily, Dosing Weight 65, kg, Start date: 03/02/13 9:00:00, Duration: 30 day, Stop date: 03/31/13 9:00:00 predniSONE 2012-0 No Liana 40 mg, 2 Memoria 03-02 Ahmed tab, l 14:00: Badar Route: PO, Kishore n 00 Drug form: TAB, Daily, Dosing Weight 65, kg, Start date: 03/02/13 9:00:00, Duration: 30 day, Stop date: 03/31/13 9:00:00 Lasix 2012-0 No Jeff 40 mg, 1 Memori a 9-05 Barbara tab, l 22:00: Jr Route: PO, [place] 00 Drug form: TAB, BID, Start date: [...] Barbara tab, l 22:00: Jr Route: PO, [place] 00 Drug form: TAB, BID, Start date: 03/01/13 17:00:00, Duration: 30 day, Stop date: 03/31/13 9:00:00 Lasix 2013-0 No Jeff 40 mg, 1 Memori a 9-05 Barbara tab, l 22:00: Jr Route: PO, Jesús 00 Drug form: TAB, BID, Start date: 03/01/13 17:00:00, Duration: 30 day, Stop date: 03/31/13 9:00:00 Lasix No Jeff 40 mg, 1 Memori a 9-05 Barbara tab, l 22:00: Jr Route: PO, Jesús 00 Drug form: TAB, BID, Start date: 03/01/13 17:00:00, Duration: 30 day, Stop date: 03/31/13 9:00:00 K-Dur 20 No Jeff 20 mEq, 1 Me moria 9-05 Barbara tab, l 17:04: Jr Route: PO, Jesús 00 Drug form: ERTAB, BID, Start date: 03/01/13 12:04:00, Duration: 30 day, Stop date: 03/31/13 9:00:00 K-Dur 20 No Jeff 20 mEq, 1 Me moria 9-05 Barbara tab, l 17:04: Jr Route: PO, Jesús 00 Drug form: ERTAB, BID, Start date: 03/01/13 12:04:00, Duration: 30 day, Stop date: 03/31/13 9:00:00 K-Dur 20 No Jeff 20 mEq, 1 Me moria 9-05 Barbara tab, l 17:04: Jr Route: PO, [place] 00 Drug form: ERTAB, BID, Start date: 03/01/13 12:04:00, Duration: 30 day, Stop date: 03/31/13 9:00:00 K-Dur 20 0 No Jeff 20 mEq, 1 Me moria 9-05 Barbara tab, l 17:04: Jr Route: PO, Jesús 00 Drug form: ERTAB, BID, Start date: 03/01/13 12:04:00, Duration: 30 day, Stop date: 03/31/13 9:00:00 K-Dur 20 No Jeff 20 mEq, 1 Me moria 9-05 Barbara tab, l 17:04: Jr Route: PO, [place] 00 Drug form: ERTAB, BID, Start date: 03/01/13 12:04:00, Duration: 30 day, Stop date: 03/31/13 9:00:00 K-Dur 20 2012-0 No Jeff 20 mEq, 1 Me moria 9-05 Barbara tab, l 17:04: Jr Route: PO, [place] 00 Drug form: ERTAB, BID, Start date: 03/01/13 12:04:00, Duration: 30 day, Stop date: 03/31/13 9:00:00 Lopressor 0 No Jeff 25 mg, 1 Me moria 9-05 Barbara tab, l 17:03: Jr Route: PO, [place] 00 Drug form: TAB, Q12H, Start date: 03/01/13 12:03:00, Duration: 30 day, Stop date: 03/31/13 9:00:00 Lopressor 0 No Jeff 25 mg, 1 Me moria 9-05 Barbara tab, l 17:03: Jr Route: PO, [place] 00 Drug form: TAB, Q12H, Start date: 03/01/13 12:03:00, Duration: 30 day, Stop date: 03/31/13 9:00:00 Lopressor 0 No Jeff 25 mg, 1 Me moria 9-05 Barbara tab, l 17:03: Jr Route: PO, [place] Drug form: TAB, Q12H, Start date: 03/01/13 12:03:00, Duration: 30 day, Stop date: 03/31/13 9:00:00 Lopressor 0 No Jeff 25 mg, 1 Me moria 9-05 Barbara tab, l 17:03: Jr Route: PO, Jesús Drug form: TAB, Q12H, Start date: 03/01/13 12:03:00, Duration: 30 day, Stop date: 03/31/13 9:00:00 Lopressor 0 No Jeff 25 mg, 1 Me moria 9-05 Barbara tab, l 17:03: Jr Route: PO, Jesús 00 Drug form: TAB, Q12H, Start date: 03/01/13 12:03:00, Duration: 30 day, Stop date: 03/31/13 9:00:00 Lopressor 0 No Jeff 25 mg, 1 Me moria 9-05 Barbara tab, l 17:03: Jr Route: PO, [place] 00 Drug form: TAB, Q12H, Start date: 03/01/13 12:03:00, Duration: 30 day, Stop date: 03/31/13 9:00:00 potassium 2012- Yes Anna 20 mEq, 1 Memoria chloride 20 -05 Kita tab, PO, l mEq oral 15:18: BID, 60 Kishore n tablet, 37 tab, 5, 5, extended Substituti release on Allowed potassium Yes Anna 20 mEq, 1 Memoria chloride 20 -05 Kita tab, PO, l mEq oral 15:18: BID, 60 Kishore n tablet, 37 tab, 5, 5, extended Substituti release on Allowed potassium Yes Anna 20 mEq, 1 Memoria chloride 20 -05 Kita tab, PO, l mEq oral 15:18: BID, 60 Kishore n tablet, 37 tab, 5, 5, extended Substituti release on Allowed potassium Yes Anna 20 mEq, 1 Memoria chloride 20 -05 Kita tab, PO, l mEq oral 15:18: BID, 60 Kishore n tablet, 37 tab, 5, 5, extended Substituti release on Allowed potassium Yes Anna 20 mEq, 1 Memoria chloride 20 -05 Kita tab, PO, l mEq oral 15:18: BID, 60 Kishore n tablet, 37 tab, 5, 5, extended Substituti release on Allowed potassium Yes Anna 20 mEq, 1 Memoria chloride 20 05 Kita tab, PO, l mEq oral 15:18: BID, 60 Kishore n tablet, 37 tab, 5, 5, extended Substituti release on Allowed aspirin 81 Yes Anna 81 mg, 1 Memoria mg tablet, 03-01 Kita tab, PO, l chewable 15:12: Daily, 30 Herm karina 34 tab, Substituti on Allowed, CHEWTAB aspirin 81 2012- Yes Anna 81 mg, 1 Memoria mg tablet, 03-01 Kita tab, PO, l chewable 15:12: Daily, 30 Herm karina 34 tab, Substituti on Allowed, CHEWTAB aspirin 81 2012- Yes Anna 81 mg, 1 Memoria mg tablet, 03-01 Kita tab, PO, l chewable 15:12: Daily, 30 Herm karina 34 tab, Substituti on Allowed, CHEWTAB aspirin 81 Yes Anna 81 mg, 1 Memoria mg tablet, 03-01 Kita tab, PO, l chewable 15:12: Daily, 30 Herm karina 34 tab, Substituti on Allowed, CHEWTAB aspirin 81 Yes Anan 81 mg, 1 Memoria mg tablet, 03-01 [...] Kita tab, PO, l 15:01: BID, 60 [place] 12 tab, 5, 5, Substituti on Allowed, TAB Lasix 40 mg Yes Anna 40 mg, 1 Memoria oral tablet 03-01 Kita tab, PO, l 15:01: BID, 60 [place] 12 tab, 5, 5, Substituti on Allowed, [...] Kita tab, PO, l 15:01: BID, 60 [place] 12 tab, 5, 5, Substituti on Allowed, TAB Lasix 40 mg Yes Anna 40 mg, 1 Memoria oral tablet 03-01 Kita tab, PO, l 15:01: BID, 60 [place] 12 tab, 5, 5, Substituti on Allowed, TAB metoprolol Yes Anna 25 mg, 1 Memoria tartrate 25 9-05 Kita tab, PO, l mg oral 15:00: BID, 60 [place] tablet 06 tab, 5, 5, Substituti on Allowed, TAB metoprolol Yes Anna 25 mg, 1 Memoria tartrate 25 9-05 Kita tab, PO, l mg oral 15:00: BID, 60 [place] tablet 06 tab, 5, 5, Substituti on Allowed, TAB metoprolol Yes Anna 25 mg, 1 Memoria tartrate 25 9-05 Kita tab, PO, l mg oral 15:00: BID, 60 [place] tablet 06 tab, 5, 5, Substituti on Allowed, TAB metoprolol Yes Anna 25 mg, 1 Memoria tartrate 25 9-05 Kita tab, PO, l mg oral 15:00: BID, 60 [place] tablet 06 tab, 5, 5, Substituti on Allowed, TAB metoprolol Yes Anna 25 mg, 1 Memoria tartrate 25 9-05 Kita tab, PO, l mg oral 15:00: BID, 60 Jesús tablet 06 tab, 5, 5, Substituti on Allowed, TAB metoprolol Yes Anna 25 mg, 1 Memoria tartrate 25 9-05 Kita tab, PO, l mg oral 15:00: BID, 60 [place] tablet 06 tab, 5, 5, Substituti on Allowed, TAB simvastatin Yes Anna 20 mg, 1 Memoria 20 mg oral 05 Kita tab, PO, l tablet 14:58: Bedtime, [place] 35 30 tab, 5, 5, Substituti on Allowed, TAB simvastatin Yes Anna 20 mg, 1 Memoria 20 mg oral 905 Kita tab, PO, l tablet 14:58: Bedtime, [place] 35 30 tab, 5, 5, Substituti on Allowed, TAB simvastatin Yes Anna 20 mg, 1 Memoria 20 mg oral 9-05 Kita tab, PO, l tablet 14:58: Bedtime, Jesús 35 30 tab, 5, 5, Substituti on Allowed, TAB simvastatin Yes Anna 20 mg, 1 Memoria 20 mg oral 9-05 Kita tab, PO, l tablet 14:58: Bedtime, [place] 35 30 tab, 5, 5, Substituti on Allowed, TAB simvastatin Yes Anna 20 mg, 1 Memoria 20 mg oral 9-05 Kita tab, PO, l tablet 14:58: Bedtime, [place] 35 30 tab, 5, 5, Substituti on [...] 5, 5, Substituti on Allowed, TAB dipyridamol 2012-0 Yes Anna 75 mg, 1 Memoria e 75 mg 9-05 Kita tab, PO, l oral tablet 14:58: BID, 60 Her mckee 28 tab, 5, 5, Substituti on Allowed, TAB dipyridamol 2012-0 Yes Anna 75 mg, 1 Memoria e 75 mg 9-05 Kita tab, PO, l oral tablet 14:58: BID, 60 Her mckee 28 tab, 5, 5, Substituti on Allowed, TAB dipyridamol 2012- Yes Anna 75 mg, 1 Memoria e 75 mg 9-05 Kita tab, PO, l oral tablet 14:58: BID, 60 Her mckee 28 tab, 5, 5, Substituti on Allowed, TAB dipyridamol 2012-0 Yes Anna 75 mg, 1 Memoria e 75 mg 9-05 Kita tab, PO, l oral tablet 14:58: BID, 60 Her mckee 28 tab, 5, 5, Substituti on Allowed, TAB dipyridamol 2012- Yes Anna 75 mg, 1 Memoria e 75 mg 9-05 Kita tab, PO, l oral tablet 14:58: BID, 60 Her mckee 28 tab, 5, 5, Substituti on Allowed, TAB dipyridamol 2012-0 Yes Anna 75 mg, 1 Memoria e 75 mg 9-05 Kita tab, PO, l oral tablet 14:58: BID, 60 Her mckee 28 tab, 5, 5, Substituti on Allowed, TAB cilostazol 2012-0 Yes Anna 100 mg, 1 Memoria 100 mg oral 9-05 Kita tab, PO, l tablet 14:58: BID, 60 Jseús 25 tab, 5, 5, Substituti on Allowed, TAB cilostazol 2013-0 Yes Anna 100 mg, 1 Memoria 100 mg oral 9-05 Kita tab, PO, l tablet 14:58: BID, 60 Jesús 25 tab, 5, 5, Substituti on Allowed, TAB cilostazol 2012-0 Yes Anna 100 mg, 1 Memoria 100 mg oral 9-05 Kita tab, PO, l tablet 14:58: BID, 60 [place] 25 tab, 5, 5, Substituti on Allowed, TAB cilostazol 2013-0 Yes Anna 100 mg, 1 Memoria 100 mg oral 9-05 Kita tab, PO, l tablet 14:58: BID, 60 Jesús 25 tab, 5, 5, Substituti on Allowed, TAB cilostazol 2013-0 Yes Anna 100 mg, 1 Memoria 100 mg oral 9-05 Kita tab, PO, l tablet 14:58: BID, 60 [place] 25 tab, 5, 5, Substituti on Allowed, TAB cilostazol 2012-0 Yes Anna 100 mg, 1 Memoria 100 mg oral 9-05 Kita tab, PO, l tablet 14:58: BID, 60 [place] 25 tab, 5, 5, Substituti on Allowed, TAB amLODipine 2012-0 Yes Anna 5 mg, 1 M emoria [...] 1 M emoria 5 mg oral 9-05 Ktia tab, PO, l tablet 14:57: Daily, 30 Kishore n 30 tab, 5, 5, Substituti on Allowed, TAB predniSONE 2012-0 No Liana 30 mg, 3 Memoria 9-05 Ahmed tab, l 14:00: Badar Route: PO, Kishore n 00 Drug form: TAB, Daily, Dosing Weight 65, kg, Start date: 03/01/13 9:00:00, Duration: 30 day, Stop date: 03/30/13 9:00:00 predniSONE 2012-0 No Liana 30 mg, 3 Memoria 9-05 Ahmed tab, l 14:00: Badar Route: PO, Kishore n 00 Drug form: TAB, Daily, Dosing Weight 65, kg, Start date: 03/01/13 9:00:00, Duration: 30 day, Stop date: 03/30/13 9:00:00 predniSONE 2012-0 No Liana 30 mg, 3 Memoria 9-05 Ahmed tab, l 14:00: Badar Route: PO, Kishore n 00 Drug form: TAB, Daily, Dosing Weight 65, kg, Start date: 03/01/13 9:00:00, Duration: 30 day, Stop date: 03/30/13 9:00:00 predniSONE 2012-0 No Liana 30 mg, 3 Memoria 9-05 Ahmed tab, l 14:00: Badar Route: PO, Kishore n 00 Drug form: TAB, Daily, Dosing Weight 65, kg, Start date: 03/01/13 9:00:00, Duration: 30 day, Stop date: 03/30/13 9:00:00 predniSONE 2012-0 No Liana 30 mg, 3 Memoria 9-05 Ahmed tab, l 14:00: Badar Route: PO, Kishore n 00 Drug form: TAB, Daily, Dosing Weight 65, kg, Start date: 03/01/13 9:00:00, Duration: 30 day, Stop date: 03/30/13 9:00:00 predniSONE 2012-0 No Liana 30 mg, 3 Memoria 9-05 Ahmed tab, l 14:00: Badar Route: PO, Kishore n 00 Drug form: TAB, Daily, Dosing Weight 65, kg, Start date: 03/01/13 9:00:00, Duration: 30 day, Stop date: 03/30/13 9:00:00 simvastatin 2012-0 No Anna 20 mg, 1 Memoria 9-05 Kita tab, l 02:00: Route: PO, [place] 00 Drug form: TAB, Bedtime, Dosing Weight [...] 9-05 Kita tab, l 02:00: Route: PO, [place] 00 Drug form: TAB, Bedtime, Dosing Weight 65, kg, Start date: 02/28/13 21:00:00, Duration: 30 day, Stop date: 03/29/13 21:00:00 simvastatin 2012-0 No Anna 20 mg, 1 Memoria 9-05 Kita tab, l 02:00: Route: PO, [place] 00 Drug form: TAB, Bedtime, Dosing Weight [...] No Ike 100 mg, 1 Mem oria -04 Danny tab, l 22:00: Silverio Route: PO, He rmann Drug form: TAB, BID, Start date: 02/28/13 17:00:00, Duration: 30 day, Stop date: 03/30/13 9:00:00 Pletal 2012-0 No Ike 100 mg, 1 Mem oria -04 Danny tab, l 22:00: Silverio Route: PO, rm Drug form: TAB, BID, Start date: 02/28/13 17:00:00, Duration: 30 day, Stop date: 03/30/13 9:00:00 Pletal 2012-0 No Ike 100 mg, 1 Mem oria -04 Danny tab, l 22:00: Silverio Route: PO, rm Drug form: TAB, BID, Start date: 02/28/13 17:00:00, Duration: 30 day, Stop date: 03/30/13 9:00:00 Pletal 2012-0 No Ike 100 mg, 1 Mem oria - Danny tab, l 22:00: Silverio Route: PO, rm Drug form: TAB, BID, Start date: 02/28/13 17:00:00, Duration: 30 day, Stop date: 03/30/13 9:00:00 insulin 2012-0 No Franky 6 unit, Memor ia aspart 02-28 Avendaño 0.06 mL, l 18:36: Route: Jesús 00 [...] 02-28 Route: IM, l 18:36: Drug form: [place] 00 PDR/INJ, PRN, Dosing Weight 65, kg, PRN Blood Glucose Results, Start date: 02/28/13 13:36:00, Duration: 30 day, Stop date: 03/30/13 13:35:00 insulin 2012-0 No Franky 6 unit, Memor ia aspart 02-28s 0.06 mL, l 18:36: Route: [place] 00 SUB-Q, Drug form: SOLN, TID-Before Meals, [...] 02-28 Route: IM, l 18:36: Drug form: [place] 00 PDR/INJ, PRN, Dosing Weight 65, kg, PRN Blood Glucose Results, Start date: 02/28/13 13:36:00, Duration: 30 day, Stop date: 03/30/13 13:35:00 insulin 2012-0 No Franky 6 unit, Memor ia aspart 02-28s 0.06 mL, l 18:36: Route: [place] 00 SUB-Q, Drug form: SOLN, TID-Before Meals, Dosing Weight 65, kg, PRN Blood Glucose Results, Start date: 02/28/13 13:36:00, Duration: 30 day, Stop date: 03/30/13 13:35:00 Dextrose 2012-0 No Franky 12.5 gm, Mem oria 50% Syringe 02-28s 25 mL, l 18:36: Route: [place] 00 IVP, Drug Form: INJ, Dosing Weight 65, kg, PRN, PRN Blood Glucose Results, Start date: 02/28/13 13:36:00, Duration: 30 day, Stop date: 03/30/13 13:35:00 glucagon 2012-0 No Franky 1 mg, Memori a 02-28 Route: IM, l 18:36: Drug form: [place] 00 PDR/INJ, PRN, Dosing Weight 65, kg, PRN Blood Glucose Results, Start date: 02/28/13 13:36:00, Duration: 30 day, Stop date: 03/30/13 13:35:00 insulin 2012-0 No Franky 6 unit, Memor ia aspart 02-28s 0.06 mL, l 18:36: Route: [place] 00 SUB-Q, Drug form: SOLN, TID-Before Meals, Dosing Weight 65, kg, PRN Blood Glucose Results, Start date: 02/28/13 13:36:00, Duration: 30 day, Stop date: 03/30/13 13:35:00 Dextrose 2012-0 No Franky 12.5 gm, Mem oria 50% Syringe 02-28s 25 mL, l 18:36: Route: [place] 00 IVP, Drug Form: INJ, Dosing Weight [...] aspart 02-28s 0.06 mL, l 18:36: Route: [place] 00 SUB-Q, Drug form: SOLN, TID-Before Meals, Dosing Weight 65, kg, PRN Blood Glucose Results, Start date: 02/28/13 13:36:00, Duration: 30 day, Stop date: 03/30/13 13:35:00 Dextrose 2012-0 No Franky 12.5 gm, Mem oria 50% Syringe 02-28s 25 mL, l 18:36: Route: [place] 00 IVP, Drug Form: INJ, Dosing Weight [...] aspart 02-28s 0.06 mL, l 18:36: Route: [place] 00 SUB-Q, Drug form: SOLN, TID-Before Meals, Dosing Weight 65, kg, PRN Blood Glucose Results, Start date: 02/28/13 13:36:00, Duration: 30 day, Stop date: 03/30/13 13:35:00 Dextrose 2012-0 No Franky 12.5 gm, Mem oria 50% Syringe 02-28s 25 mL, l 18:36: Route: [place] 00 IVP, Drug Form: INJ, Dosing Weight [...] 02/28/13 13:00:00, Stop date: 02/28/13 13:00:00 potassium No Liana 40 mEq, 2 Memoria chloride [...] Ahmed 0.96 mL, l 02:00: Badar Route: [place] IVP, Drug form: INJ, Q12H, Dosing Weight 65, kg, Start date: 02/27/13 21:00:00, Duration: 30 day, Stop date: 03/29/13 9:00:00 K-Dur 20 2012-0 No Hamzah 40 mEq, 2 Mem oria 9-04 Jacobo tab, l 01:00: Matthews Route: PO, Kishore n 00 Drug form: ERTAB, ONCE, Start date: 02/27/13 20:00:00, Stop date: 02/27/13 20:00:00 Zaroxolyn 2013-0 No Hamzah 5 mg, 2 Hossein diana 9-04 Jacobo tab, l 01:00: Matthews Route: PO, Kishore n 00 Drug form: TAB, ONCE, Start date: 02/27/13 20:00:00, Stop date: 02/27/13 20:00:00 Lasix 2012-0 No Hamzah 40 mg, 4 Memoria 9-04 Jacobo mL, Route: l 01:00: Matthews IV, Drug Jseús 00 form: INJ, BID, Start date: 02/27/13 [...] mL, Route: l 01:00: Matthews IV, Drug [place] 00 form: INJ, BID, Start date: 02/27/13 [...] 02/27/13 20:00:00, Stop date: 02/27/13 20:00:00 Zaroxolyn 2013-0 No Hamzah 5 mg, 2 Hossein diana 9-04 Jacobo tab, l 01:00: Matthews Route: PO, Kishore n 00 Drug form: TAB, ONCE, Start date: 02/27/13 20:00:00, Stop date: 02/27/13 20:00:00 Lasix 2012-0 No Hamzah 40 mg, 4 Memoria 9-04 Jacobo mL, Route: l 01:00: Matthews IV, Drug [place] 00 form: INJ, BID, Start date: 02/27/13 [...] mL, Route: l 01:00: Matthews IV, Drug [place] 00 form: INJ, BID, Start date: 02/27/13 20:00:00, Duration: 30 day, Stop date: 03/29/13 17:00:00 Lasix 2012-0 No Liana 40 mg, 4 Memor ia 9-03 Ahmed mL, Route: l 14:22: Badar IV, Drug [place] form: INJ, QAM, Start date: 02/27/13 9:22:00, Duration: 30 day, Stop date: 03/29/13 9:00:00 Lasix 2012-0 No Liana 40 mg, 4 Memor ia 9-03 Ahmed mL, Route: l 14:22: Badar IV, Drug [place] 00 form: INJ, QAM, Start date: 02/27/13 9:22:00, Duration: 30 day, Stop date: 03/29/13 9:00:00 Lasix 2012-0 No Liana 40 mg, 4 Memor ia 9-03 Ahmed mL, Route: l 14:22: Badar IV, Drug [place] 00 form: INJ, QAM, Start date: 02/27/13 [...] mL, Route: l 14:22: Badar IV, Drug [place] 00 form: INJ, QAM, Start date: 02/27/13 9:22:00, Duration: 30 day, Stop date: 03/29/13 9:00:00 Lasix 2012-0 No Liana 40 mg, 4 Memor ia 02-27 Ahmed mL, Route: l 14:22: Badar IV, Drug [place] 00 form: INJ, QAM, Start date: 02/27/13 [...] FlexPen 02-27 0.14 mL, l 05:20: Route: [place] 00 SUB-Q, Drug form: SOLN, Sliding Scale, PRN Blood Glucose Results, Start date: 02/27/13 0:20:00, Duration: 30 day, Stop date: 03/29/13 0:19:00 Dextrose 2012-0 No Franky 50 mL, Memor [...] 30 day, Stop date: 03/29/13 0:19:00 NovoLog 2012- No Franky 14 unit, Hossein diana FlexPen [...] a 02-27 Route: l 05:20: INJ, Drug form: PDR/INJ, PRN, PRN Blood [...] a 02-27 Route: l 05:20: INJ, Drug [place] form: PDR/INJ, PRN, PRN Blood Glucose Results, Start date: 02/27/13 0:20:00, Duration: 30 day, Stop date: 03/29/13 0:19:00 NovoLog 2012- No Franky 14 unit, Hossein diana FlexPen [...] FlexPen 02-27 0.14 mL, l 05:20: Route: [place] 00 SUB-Q, Drug form: SOLN, Sliding Scale, [...] a 02-27 Route: l 05:20: INJ, Drug [place] 00 form: PDR/INJ, PRN, PRN Blood Glucose Results, Start date: 02/27/13 0:20:00, Duration: 30 day, Stop date: 03/29/13 0:19:00 NovoLog 2012- No Franky 14 unit, Hossein diana FlexPen 02-27 0.14 mL, l 05:20: Route: [place] 00 SUB-Q, Drug form: SOLN, Sliding Scale, [...] No Ike 20 mg, 4 Me moria 9-03 Danny mL, Route: l 00:00: Silverio IV, Drug Herm karina 00 form: INJ, Q6H, PRN See Nurse's Notes, Start date: 02/26/13 19:00:00, Duration: 30 day, Stop date: 03/28/13 18:59:00 Trandate 2013-0 No Ike 20 mg, 4 Me moria 9-03 Danny mL, Route: l 00:00: Silverio IV, Drug Herm karina 00 form: INJ, Q6H, PRN See Nurse's Notes, Start date: 02/26/13 19:00:00, Duration: 30 day, Stop date: 03/28/13 18:59:00 Protonix 2013-0 No Ike 40 mg, 1 [...] Stop date: 03/28/13 16:30:00 Trandate 2012-0 No Jose Alberto L 10 mg, 2 Mem oria 02-26 Mangin Jr mL, Route: l 22:49: IV, Drug Jesús 00 form: INJ, Q6H, PRN See Nurse's Notes, Start date: 02/26/13 17:49:00, Duration: 30 day, Stop date: 03/28/13 17:48:00 Trandate 2012-0 No Jose Alberto L 10 mg, 2 Mem oria - Mangin Jr mL, Route: l 22:49: IV, Drug Jesús 00 form: INJ, Q6H, PRN See Nurse's Notes, Start date: 02/26/13 17:49:00, Duration: 30 day, Stop date: 03/28/13 17:48:00 Trandate 2012-0 No Jose Alberto L 10 mg, 2 Mem oria -02 Mangin Jr mL, Route: l 22:49: IV, Drug [place] 00 form: INJ, Q6H, PRN See Nurse's Notes, Start date: 02/26/13 17:49:00, Duration: 30 day, Stop date: 03/28/13 17:48:00 Trandate 2012-0 No Jose Alberto L 10 mg, 2 Mem oria -02 Mangin Jr mL, Route: l 22:49: IV, Drug Jesús 00 form: INJ, Q6H, PRN See Nurse's Notes, Start date: 02/26/13 17:49:00, Duration: 30 day, Stop date: 03/28/13 17:48:00 Trandate 2012-0 No Jose Alberto L 10 mg, 2 Mem oria - Mangin Jr mL, Route: l 22:49: IV, Drug [place] 00 form: INJ, Q6H, PRN See Nurse's Notes, Start date: 02/26/13 17:49:00, Duration: 30 day, Stop date: 03/28/13 17:48:00 Trandate 2012-0 No Jose Alberto L 10 mg, 2 Mem oria - Mangin Jr mL, Route: l 22:49: IV, Drug Jesús 00 form: INJ, Q6H, PRN See Nurse's Notes, Start date: 02/26/13 17:49:00, Duration: 30 day, Stop date: 03/28/13 17:48:00 Trandate 2012-0 No Ike 20 mg, 4 Me moria 9- Danny mL, Route: l 18:01: Silverio IV, [...] No Ike 20 mg, 4 Me moria 02-26 Danny mL, Route: l 18:01: Silverio IV, [...] No Ck 0.5 mg, 1 Memor ia 02 Dylon tab, l 18:00: Xie Route: Tiarra ALFORD karina 00 Drug form: TAB, Q12H, Start date: 02/26/13 13:00:00, Duration: 4 doses or times, Stop date: 02/27/13 21:00:00 Xanax 2012-0 No Ck 0.5 mg, 1 Memor ia 02 Dylon tab, l 18:00: Xie Route: NG Herm karina 00 Drug form: TAB, Q12H, Start date: 02/26/13 13:00:00, Duration: 4 doses or times, Stop date: 02/27/13 21:00:00 Xanax 2013-0 No Ck 0.5 mg, 1 Memor ia -02 Dylon tab, l 18:00: Xie Route: NGTiarra karina 00 Drug form: TAB, Q12H, Start date: 02/26/13 13:00:00, Duration: 4 doses or times, Stop date: 02/27/13 21:00:00 Xanax 2012-0 No Ck 0.5 mg, 1 Memor ia 02-26 Dylon tab, l 18:00: Xie Route: NG, Tiarra collins Drug form: TAB, Q12H, Start date: 02/26/13 13:00:00, Duration: 4 doses or times, Stop date: 02/27/13 21:00:00 GoLYTELY 2012-0 No Nadim Carlos A 4,000 ml, Memoria 02-26 Shoaib Route: PO, l 14:19: Drug Form: [place] 00 PDR/REC, Dosing Weight 65, kg, ONCE, Start date: 02/26/13 9:19:00, Duration: 1 doses or times, Stop date: 02/26/13 9:19:00 GoLYTELY 2012-0 No Nadim Carlos A 4,000 ml, Memoria 02-26 Shoaib Route: PO, l 14:19: Drug Form: [place] 00 PDR/REC, Dosing Weight 65, kg, ONCE, Start date: 02/26/13 9:19:00, Duration: 1 doses or times, Stop date: 02/26/13 9:19:00 GoLYTELY 2012-0 No Nadim Carlos A 4,000 ml, Memoria 02-26 Shoaib Route: PO, l 14:19: Drug Form: [place] 00 PDR/REC, Dosing Weight 65, kg, ONCE, [...] Shoaib Route: PO, l 14:19: Drug Form: [place] 00 PDR/REC, Dosing Weight 65, kg, ONCE, [...] No Ike 10 mg, 1 Mem oria -02 Danny tab, l 11:30: Silverio Route: PO, He rm Drug form: TAB, Q630AM, Start date: 02/26/13 6:30:00, Duration: 30 day, Stop date: 03/27/13 6:30:00 Fosamax 2012-0 No Ike 10 mg, 1 Mem oria -02 Danny tab, l 11:30: Silverio Route: PO, He rmann Drug form: TAB, Q630AM, Start date: 02/26/13 [...] Sameer Rate: l unit + 04:27: titrate, [place] Sodium 00 Route: IV, Chloride Dosing 0.9% [...] Sameer Rate: l unit + 04:27: titrate, [place] Sodium 00 Route: IV, Chloride Dosing 0.9% [...] Stop date: 03/27/13 23:26:00 Insulin 2012-0 No Nancy-Jesus 99 mL, Memor ia regular 100 02-26 Irlanda Sameer Rate: l unit + 04:27: titrate, [place] Sodium 00 Route: IV, Chloride Dosing 0.9% [...] l Dextrose 5% 03:30: Silverio Route: IV, [place] in Water IV 00 Drug form: 100 mL INJ, ONCE, Start date: 02/25/13 22:30:00, Stop date: 02/25/13 22:30:00 calcium 2013-0 No Ike 1,000 mg, Me moria gluconate [...] 02/25/13 20:50:00, Stop date: 02/25/13 20:50:00 calcium No Ike 1 gm, 50 Mem oria gluconate 9-02 Danny mL, Route: l 01:50: Silverio IV, Drug Herm karina 00 form: INJ, ONCE, Start date: 02/25/13 20:50:00, Stop date: 02/25/13 20:50:00 calcium 0 No Ike 1 gm, 50 Mem oria gluconate 9-02 Danny mL, Route: l 01:50: Silverio IV, Drug Herm karina 00 form: INJ, ONCE, Start date: 02/25/13 20:50:00, Stop date: 02/25/13 20:50:00 calcium 0 No Ike 1 gm, 50 Mem oria [...] 02/25/13 20:50:00, Stop date: 02/25/13 20:50:00 calcium 2013-0 No Ike 1 gm, 50 Mem oria gluconate 02-26 Danny mL, Route: l 01:50: Silverio IV, Drug Herm karina 00 form: INJ, ONCE, Start date: 02/25/13 20:50:00, Stop date: 02/25/13 20:50:00 Insulin No Nancy-Ye 99 mL, Memor ia regular 100 02-25 Irlanda Sameer Rate: l unit + 21:22: titrate, [place] Sodium 00 Route: IV, Chloride Dosing 0.9% IV 99 Weight 65 mL kg, Total Volume: 100, Start date: 02/25/13 16:22:00, Duration: 30 day, Stop date: 03/27/13 16:21:00 Insulin No Nancy-Ye 99 mL, Memor ia regular 100 02-25 Irlanda Sameer Rate: l unit + 21:22: titrate, Jesús Sodium 00 Route: IV, Chloride Dosing 0.9% IV 99 Weight 65 mL kg, Total Volume: 100, Start date: 02/25/13 16:22:00, Duration: 30 day, Stop date: 03/27/13 16:21:00 Insulin No Nancy-Ye 99 mL, Memor ia regular 100 02-25 Irlanda Sameer Rate: l unit + 21:22: titrate, Jesús Sodium 00 Route: IV, Chloride Dosing 0.9% IV 99 Weight 65 mL kg, Total Volume: 100, Start date: 02/25/13 16:22:00, Duration: 30 day, Stop date: 03/27/13 16:21:00 Insulin No Nancy-Ye 99 mL, Memor ia regular 100 02-25 Irlanda Sameer Rate: l unit + 21:22: titrate, [place] Sodium 00 Route: IV, Chloride Dosing 0.9% IV 99 Weight 65 mL kg, Total Volume: 100, Start date: 02/25/13 16:22:00, Duration: 30 day, Stop date: 03/27/13 16:21:00 Insulin No Nancy-Ye 99 mL, Memor ia [...] Sameer Rate: l unit + 21:22: titrate, [place] Sodium 00 Route: IV, Chloride Dosing 0.9% IV 99 Weight 65 mL kg, Total Volume: 100, Start date: 02/25/13 16:22:00, Duration: 30 day, Stop date: 03/27/13 16:21:00 Dextrose 5% 2012-0 No Nancy-Ye 1,000 mL, Memoria in Water IV 02-25 Irlanda Sameer Rate: 50 l 1,000 mL 17:39: ml/hr, [place] 00 Infuse over: 20 hr, Route: IV, Dosing Weight 65 kg, Total Volume: 1,000, Start date: 02/25/13 12:39:00, Duration: 30 day, Stop date: 03/27/13 12:38:00 Dextrose 5% 2012-0 No Nancy-Ye 1,000 mL, Memoria in Water IV 02-25 Irlanda Sameer Rate: 50 l 1,000 mL 17:39: ml/hr, [place] 00 Infuse over: 20 hr, Route: IV, [...] Rate: 50 l 1,000 mL 17:39: ml/hr, [place] 00 Infuse over: 20 hr, Route: IV, [...] 2012-0 No Liana 60 mg, 1.5 Memoria 9- Ahmed mL, Route: l 17:00: Badar IV, Drug Jesús 00 form: INJ, Q8H, Dosing Weight 65, kg, Start date: 02/25/13 12:00:00, Duration: 30 day, Stop date: 03/27/13 6:30:00 SoluMedrol 2012-0 No Liana 60 mg, 1.5 Memoria 9-01 [...] mL, Route: l 17:00: Badar IV, Drug [place] 00 form: INJ, Q8H, Dosing Weight 65, [...] mL, Route: l 17:00: Badar IV, Drug [place] 00 form: INJ, Q8H, Dosing Weight 65, [...] Sanderson mL, Route: l 14:00: IVP, Drug [place] 00 form: INJ, Daily, Dosing Weight 65, kg, Start date: 02/25/13 9:00:00, Duration: 30 day, Stop date: 03/26/13 9:00:00 Lasix 2013-0 No Marbin M 20 mg, 2 Mem oria 9-01 Sanderson mL, Route: l 14:00: IVP, Drug [place] 00 form: INJ, Daily, Dosing Weight 65, [...] Sanderson mL, Route: l 14:00: IVP, Drug [place] 00 form: INJ, Daily, Dosing Weight 65, kg, Start date: 02/25/13 9:00:00, Duration: 30 day, Stop date: 03/26/13 9:00:00 Lasix No Marbin M 20 mg, 2 Mem oria 02-25 Sanderson mL, Route: l 14:00: IVP, Drug [place] 00 form: INJ, Daily, Dosing Weight 65, [...] Marnie mL, Route: l Sodium 12:11: IVPB, [place] Chloride 00 ONCE, 0.9% IV 100 Dosing mL Weight 65, kg, Start date: 02/25/13 7:11:00, Stop date: 02/25/13 7:11:00 calcium No Westley A 2 gm, 20 Me moria gluconate + 9-01 Marnie mL, Route: l Sodium 12:11: IVPB, [place] Chloride 00 ONCE, 0.9% IV 100 Dosing [...] 02-24 Route: IV, l 21:25: Drug form: [place] 00 PDR/INJ, PRN, PRN Blood Glucose Results, [...] FlexPen 02-24 0.1 mL, l 21:25: Route: [place] 00 SUB-Q, Drug form: SOLN, Sliding Scale, PRN Blood Glucose Results, Start date: 02/24/13 16:25:00, Duration: 30 day, Stop date: 03/26/13 16:24:00 glucagon 2012-0 No Franky 1 mg, Memori a 02-24 Route: IV, l 21:25: Drug form: [place] 00 PDR/INJ, PRN, PRN Blood Glucose Results, [...] 02-24 Route: IV, l 21:25: Drug form: [place] 00 PDR/INJ, PRN, PRN Blood Glucose Results, [...] FlexPen 02-24 0.1 mL, l 21:25: Route: [place] 00 SUB-Q, Drug form: SOLN, Sliding Scale, [...] FlexPen 02-24 0.1 mL, l 21:25: Route: [place] 00 SUB-Q, Drug form: SOLN, Sliding Scale, PRN Blood Glucose Results, Start date: 02/24/13 16:25:00, Duration: 30 day, Stop date: 03/26/13 16:24:00 glucagon 2012-0 No Franky 1 mg, Memori a 02-24 Route: IV, l 21:25: Drug form: [place] 00 PDR/INJ, PRN, PRN Blood Glucose Results, [...] 02-24 Route: IV, l 21:25: Drug form: [place] 00 PDR/INJ, PRN, PRN Blood Glucose Results, [...] 8-31 Avendaño 0.06 mL, l 21:24: Route: [place] 00 SUB-Q, Drug form: SOLN, Sliding Scale, PRN Blood Glucose Results, Start date: 02/24/13 16:24:00, Duration: 30 day, Stop date: 03/26/13 16:23:00 NovoLog 2012-0 No Franky 6 unit, Memor ia FlexPen 02-24 Avendaño 0.06 mL, l 21:24: Route: Jesús SUB-Q, Drug form: SOLN, Sliding Scale, PRN Blood Glucose Results, Start date: 02/24/13 16:24:00, Duration: 30 day, Stop date: 03/26/13 16:23:00 NovoLog 2012-0 No Franky 6 unit, Memor ia FlexPen 02-24 Avendaño 0.06 mL, l 21:24: Route: Jesús 00 SUB-Q, Drug form: SOLN, Sliding Scale, PRN Blood Glucose Results, Start date: 02/24/13 16:24:00, Duration: 30 day, Stop date: 03/26/13 16:23:00 NovoLog 2012-0 No Franky 6 unit, Memor ia FlexPen 02-24 Avendaño 0.06 mL, l 21:24: Route: Jesús 00 SUB-Q, Drug form: SOLN, Sliding Scale, PRN Blood Glucose Results, Start date: 02/24/13 16:24:00, Duration: 30 day, Stop date: 03/26/13 16:23:00 NovoLog 2012-0 No Franky 6 unit, Memor ia FlexPen 02-24 Avendaño 0.06 mL, l 21:24: Route: [place] 00 SUB-Q, Drug form: SOLN, Sliding Scale, PRN Blood Glucose Results, Start date: 02/24/13 16:24:00, Duration: 30 day, Stop date: 03/26/13 16:23:00 ipratropium 2012-0 No Ike 0.5 mg, Memoria 0.02% 02-24 Danny 2.5 mL, l inhalation 20:00: Silverio Route: [place] solution 00 NEB, Drug form: SOLN, RQ4H, Start date: 02/24/13 15:00:00, Duration: 30 day, Stop date: 03/26/13 11:00:00 Mucomyst-20 2012-0 No Liana 600 mg, 3 Memoria inhalation 8-31 Ahmed mL, Route: l solution 20:00: Rob SANCHEZ, Drug [place] 00 Form: SOLN, Dosing Weight 65, kg, RQ4H, Start date: 02/24/13 15:00:00, Duration: 30 day, Stop date: 03/26/13 11:00:00 ipratropium 2012-0 No Ike 0.5 mg, Memoria 0.02% 8-31 Danny 2.5 mL, l inhalation 20:00: Silverio Route: [place] solution NEB, Drug form: SOLN, RQ4H, Start date: 02/24/13 15:00:00, Duration: 30 day, Stop date: 03/26/13 11:00:00 Mucomyst-20 2012-0 No Liana 600 mg, 3 Memoria inhalation 8-31 Ahmed mL, Route: l solution 20:00: Rob SANCHEZ, Drug [place] 00 Form: SOLN, Dosing Weight 65, kg, RQ4H, Start date: 02/24/13 15:00:00, Duration: 30 day, Stop date: 03/26/13 11:00:00 ipratropium 2012-0 No Ike 0.5 mg, Memoria 0.02% 8-31 Danny 2.5 mL, l inhalation 20:00: Silverio Route: [place] solution NEB, Drug form: SOLN, RQ4H, Start date: 02/24/13 15:00:00, Duration: 30 day, Stop date: 03/26/13 11:00:00 Mucomyst-20 2012-0 No Liana 600 mg, 3 Memoria inhalation 8-31 Ahmed mL, Route: l solution 20:00: Rob NEB, Drug [place] 00 Form: SOLN, Dosing [...] 8-31 Ahmed mL, Route: l solution 20:00: Brianar [facility], Drug Her [place] 00 Form: SOLN, Dosing Weight 65, kg, RQ4H, Start date: 02/24/13 15:00:00, Duration: 30 day, Stop date: 03/26/13 11:00:00 ipratropium 2012-0 No Ike 0.5 mg, Memoria 0.02% 8-31 Danny 2.5 mL, l inhalation 20:00: Silverio Route: [place] solution NEB, Drug form: SOLN, RQ4H, Start date: 02/24/13 15:00:00, Duration: 30 day, Stop date: 03/26/13 11:00:00 Mucomyst-20 2012-0 No Liana 600 mg, 3 Memoria inhalation 8-31 Ahmed mL, Route: l [facility] [place] [facility] Form: SOLN, Dosing Weight 65, kg, RQ4H, Start date: 02/24/13 15:00:00, Duration: 30 day, Stop date: 03/26/13 11:00:00 ipratropium 2012-0 No Ike 0.5 mg, Memoria 0.02% 8-31 Danny 2.5 mL, l inhalation 20:00: Silverio Route: [place] solution 00 NEB, Drug form: SOLN, RQ4H, Start date: 02/24/13 15:00:00, Duration: 30 day, Stop date: 03/26/13 11:00:00 Mucomyst-20 2012-0 No Liana 600 mg, 3 Memoria inhalation 8-31 Ahmed mL, Route: l solution 20:00: Badar [facility], Drug Her mckee 00 Form: SOLN, Dosing [...] mL, Route: l 17:00: Jr IV, Drug [place] 00 form: INJ, Q6H, Start date: 02/24/13 12:00:00, Duration: 30 day, Stop date: 03/26/13 6:00:00 Lopressor 0 No Jeff 5 mg, 5 Mem oria 8-31 Barbara mL, Route: l 17:00: Jr IV, Drug Jesús 00 form: INJ, Q6H, Start date: 02/24/13 12:00:00, Duration: 30 day, Stop date: 03/26/13 6:00:00 Lopressor 0 No Jeff 5 mg, 5 Mem oria 8-31 Barbara mL, Route: l 17:00: Jr IV, Drug [place] 00 form: INJ, Q6H, Start date: 02/24/13 [...] 30 day, Stop date: 03/26/13 9:00:00 potassium 2013-0 No Ike 20 mEq, 10 Memoria chloride [...] 30 day, Stop date: 03/26/13 9:00:00 potassium 2013-0 No Ike 20 mEq, 10 Memoria chloride [...] Marnie mL, Route: l 14:08: IVP, Drug [place] 00 form: INJ, ONCE, Dosing Weight 65, [...] Marnie mL, Route: l 14:08: IVP, Drug [place] 00 form: INJ, ONCE, Dosing Weight 65, kg, Start date: 02/24/13 9:08:00, Stop date: 02/24/13 9:08:00 Lasix 2012-0 No Westley A 20 mg, 2 Hossein diana 8-31 Marnie mL, Route: l 14:08: IVP, Drug Jesús 00 form: INJ, ONCE, Dosing Weight 65, kg, Start date: 02/24/13 9:08:00, Stop date: 02/24/13 9:08:00 protamine + 0 No Ike 50 mg, 5 Memoria Sodium 8-31 Danny mL, Route: l Chloride 06:15: Silverio IV, Drug [place] 0.9% IV 100 00 form: INJ, mL ONCE, Start date: 02/24/13 1:15:00, Stop date: 02/24/13 1:15:00 protamine + 2012-0 No Ike 50 mg, 5 Memoria Sodium 8-31 Danny mL, Route: l Chloride 06:15: Silverio IV, Drug [place] 0.9% IV 100 00 form: INJ, mL [...] Route: l Chloride 06:15: Silverio IV, Drug [place] 0.9% IV 100 00 form: INJ, mL [...] Route: l Chloride 06:15: Silverio IV, Drug [place] 0.9% IV 100 00 form: INJ, mL [...] Loyd mL, Route: l Chloride 05:08: IVPB, [place] 0.9% IV 50 00 ONCE, mL Start date: 02/24/13 0:08:00, Stop date: 02/24/13 0:08:00 phytonadion 2012-0 No Devan 10 mg, 1 Memoria e + Sodium 8-31 A. Loyd mL, Route: l Chloride 05:08: IVPB, [place] 0.9% IV 50 00 ONCE, mL Start date: 02/24/13 0:08:00, Stop date: 02/24/13 0:08:00 phytonadion 2012-0 No Devan 10 mg, 1 Memoria e + Sodium 8-31 A. Loyd mL, Route: l Chloride 05:08: IVPB, [place] 0.9% IV 50 00 ONCE, mL Start date: 02/24/13 0:08:00, Stop date: 02/24/13 0:08:00 phytonadion 2012-0 No Devan 10 mg, 1 Memoria e + Sodium 8-31 A. Loyd mL, Route: l Chloride 05:08: IVPB, [place] 0.9% IV 50 00 ONCE, mL Start date: 02/24/13 0:08:00, Stop date: 02/24/13 0:08:00 phytonadion 2012-0 No Devan 10 mg, 1 Memoria e + Sodium 8-31 A. Loyd mL, Route: l Chloride 05:08: IVPB, [place] 0.9% IV 50 00 ONCE, mL Start date: 02/24/13 0:08:00, Stop date: 02/24/13 0:08:00 phytonadion 2012-0 No Devan 10 mg, 1 Memoria e 8-31 A. Loyd mL, Route: l 04:32: IV, Drug [place] 00 form: INJ, ONCE, Start date: 02/23/13 23:32:00, Stop date: 02/23/13 23:32:00 phytonadion 2012-0 No Devan 10 mg, 1 Memoria e 8-31 A. Loyd mL, Route: l 04:32: IV, Drug [place] 00 form: INJ, ONCE, Start date: 02/23/13 23:32:00, Stop date: 02/23/13 23:32:00 phytonadion 2012-0 No Devan 10 mg, 1 Memoria e 8-31 A. Loyd mL, Route: l 04:32: IV, Drug [place] 00 form: INJ, ONCE, Start date: 02/23/13 23:32:00, Stop date: 02/23/13 23:32:00 phytonadion 2012-0 No Devan 10 mg, 1 Memoria e 8-31 A. Loyd mL, Route: l 04:32: IV, Drug [place] 00 form: INJ, ONCE, Start date: 02/23/13 [...] Route: l 22:00: Rob SANCHEZ, Drug Jesús form: LU[place], RQ12H, Dosing Weight 65, kg, Start date: 02/23/13 17:00:00, Stop date: 03/25/13 4:00:00 budesonide 2012-0 No Liana 1 mg, 4 M emoria 8-30 Ahmed mL, Route: l 22:00: Rob SANCHEZ, Drug Jesús form: [place]KE, RQ12H, Dosing Weight 65, kg, Start date: 02/23/13 17:00:00, Stop date: 03/25/13 4:00:00 budesonide 2012-0 No Liana 1 mg, 4 M emoria 8-30 Ahmed mL, Route: l 22:00: Rob SANCHEZ, Drug [place] form: LUKE, RQ12H, Dosing Weight 65, kg, Start date: 02/23/13 17:00:00, Stop date: 03/25/13 4:00:00 budesonide 2012-0 No Liana 1 mg, 4 M emoria 8-30 Ahmed mL, Route: l 22:00: Badching NEB, Drug Jesús form: LUKE, RQ12H, Dosing Weight 65, kg, Start date: 02/23/13 17:00:00, Stop date: 03/25/13 4:00:00 budesonide 2012-0 No Liana 1 mg, 4 M emoria 8-30 Ahmed mL, Route: l 22:00: Rob SANCHEZ, Drug Jesús 00 form: SOLN, RQ12H, Dosing Weight 65, kg, Start date: 02/23/13 17:00:00, Stop date: 03/25/13 4:00:00 budesonide 2012-0 No Liana 1 mg, 4 M emoria 8-30 Ahmed mL, Route: l 22:00: Brianar [facility], Drug [place] 00 form: SOLN, RQ12H, Dosing Weight 65, [...] l 21:30: Silverio PO, Drug Herm karina form: SUSP, Before Dinner, Start date: 02/23/13 16:30:00, Duration: 30 day, Stop date: 03/24/13 16:30:00 morphine 2012- No Nancy-Ye IV, Start M emoria Sulfate 30 8-30 Irlanda Sameer date: l mg 18:58: 02/23/13 [place] 00 13:58:00, Duration: 30, 30 ml, 65 morphine No Nancy-Ye IV, Start M emoria Sulfate 30 8-30 Irlanda Sameer date: l mg 18:58: 02/23/13 13:58:00, Duration: 30, 30 ml, 65 morphine No Nancy-Ye IV, Start M emoria Sulfate 30 8-30 Irlanda Sameer date: l mg 18:58: 02/23/13 13:58:00, Duration: 30, 30 ml, 65 morphine 0 No Nancy-Ye IV, Start M emoria Sulfate 30 8-30 Irlanda Sameer date: l mg 18:58: 02/23/13 13:58:00, Duration: 30, 30 ml, 65 morphine 2012-0 No Nancy-Ye IV, Start M emoria Sulfate 30 8-30 Irlanda Sameer date: l mg 18:58: 02/23/13 13:58:00, Duration: 30, 30 ml, 65 morphine 0 No Nancy-Ye IV, Start M emoria Sulfate 30 8-30 Irlanda Sameer date: l mg 18:58: 02/23/13 [place] 00 13:58:00, Duration: 30, 30 ml, 65 [...] 2.5 mL, l 18:06: Badar Route: Jesús 00 NEB, Drug form: SOLN, Q4H, Dosing Weight 65, kg, PRN Respirator y Protocol, Start date: 02/23/13 13:06:00, Duration: 30 day, Stop date: 03/25/13 13:05:00 ipratropium 2013-0 No Liana 0.5 mg, Memoria 8-30 Ahmed 2.5 mL, l 18:06: Badar Route: [place] NEB, Drug form: SOLN, Q4H, Dosing Weight 65, kg, PRN Respirator y Protocol, Start date: 02/23/13 13:06:00, Duration: 30 day, Stop date: 03/25/13 13:05:00 ipratropium 2013-0 No Liana 0.5 mg, Memoria 8-30 Ahmed 2.5 mL, l 18:06: Badar Route: [place] NEB, Drug form: SOLN, Q4H, Dosing Weight 65, kg, PRN Respirator y Protocol, Start date: 02/23/13 13:06:00, Duration: 30 day, Stop date: 03/25/13 13:05:00 ipratropium 2013-0 No Liana 0.5 mg, Memoria 8-30 Ahmed 2.5 mL, l 18:06: Badar Route: [place] NEB, Drug form: SOLN, Q4H, Dosing Weight 65, kg, PRN Respirator y Protocol, Start date: 02/23/13 13:06:00, Duration: 30 day, Stop date: 03/25/13 13:05:00 ipratropium 2013-0 No Liana 0.5 mg, Memoria 8-30 Ahmed 2.5 mL, l 18:06: Badar Route: [place] NEB, Drug form: SOLN, Q4H, Dosing Weight 65, kg, PRN Respirator y Protocol, Start date: 02/23/13 13:06:00, Duration: 30 day, Stop date: 03/25/13 13:05:00 ipratropium 2013-0 No Liana 0.5 mg, Memoria 8-30 Ahmed 2.5 mL, l 18:06: Badar Route: [place] NEB, Drug form: SOLN, Q4H, Dosing Weight 65, kg, PRN Respirator y Protocol, Start date: 02/23/13 13:06:00, Duration: 30 day, Stop date: 03/25/13 13:05:00 Xopenex 2013-0 No Liana 1.25 mg, 3 M emoria 8-30 Ahmed mL, Route: l 18:05: Badar NEB, Drug [place] 00 form: SOLN, RQ8H, Dosing Weight 65, kg, Start date: 02/23/13 13:05:00, Duration: 30 day, Stop date: 03/25/13 7:00:00 Ativan 2012-0 No Liana 1 mg, 0.5 Mem oria 8-30 Ahmed mL, Route: l 18:05: Badar IV, Drug [place] 00 form: INJ, Q3H, Dosing Weight 65, [...] mL, Route: l 18:05: Badar IV, Drug [place] 00 form: INJ, Q3H, Dosing Weight 65, kg, PRN Anxiety, Start date: 02/23/13 13:05:00, Duration: 30 day, Stop date: 03/25/13 13:04:00 Xopenex 2013-0 No Liana 1.25 mg, 3 M emoria 8-30 Ahmed mL, Route: l 18:05: Badar NEB, Drug [place] 00 form: SOLN, RQ8H, Dosing Weight 65, kg, Start date: 02/23/13 13:05:00, Duration: 30 day, Stop date: 03/25/13 7:00:00 Ativan 2012-0 No Liana 1 mg, 0.5 Mem oria 8-30 Ahmed mL, Route: l 18:05: Badar IV, Drug [place] 00 form: INJ, Q3H, Dosing Weight 65, kg, PRN Anxiety, Start date: 02/23/13 13:05:00, Duration: 30 day, Stop date: 03/25/13 13:04:00 Xopenex 2013-0 No Liana 1.25 mg, 3 M emoria 8-30 Ahmed mL, Route: l 18:05: Badar NEB, Drug [place] 00 form: SOLN, RQ8H, Dosing Weight 65, [...] 2.5 mL, l 14:00: Jr Route: IV, [place] 00 Drug form: INJ, Q12H, Start date: 02/23/13 9:00:00, Duration: 30 day, Stop date: 03/24/13 21:00:00 Lopressor 2012-0 No Jeff 2.5 mg, Mem oria 8-30 Barbara 2.5 mL, l 14:00: Jr Route: IV, [place] 00 Drug form: INJ, Q12H, Start date: 02/23/13 9:00:00, Duration: 30 day, Stop date: 03/24/13 21:00:00 Lopressor 2012-0 No Jeff 2.5 mg, Mem oria 8-30 Barbaar 2.5 mL, l 14:00: Jr Route: IV, [...] 02/23/13 6:01:00, Stop date: 02/23/13 6:01:00 Lasix 2012- No Ike 20 mg, 2 Memor ia [...] Ike 20 mg, 2 Memor ia 8-30 Adnny mL, Route: l 04:32: Silverio IV, Drug [...] mL, l intravenous 03:00: Silverio Route: IV, [place] solution 00 Drug form: INJ, ONCE, Start date: 02/22/13 22:00:00, Stop date: 02/22/13 22:00:00 Sodium 2012-0 No Ike IV, 0 Memoria Chloride 8-30 Danny ml/hr, l 0.9% IV 03:00: Silverio PRN, PRN H ermann 00 See Nurse's Notes, Start date: 02/22/13 22:00:00, 250 ml albumin 2012- No Ike 12.5 gm, Mem oria human [...] mL, l intravenous 03:00: Silverio Route: IV, [place] solution 00 Drug form: INJ, ONCE, Start date: 02/22/13 22:00:00, Stop date: 02/22/13 22:00:00 Sodium 2013-0 No Ike IV, 0 Memoria Chloride 8-30 Danny ml/hr, l 0.9% IV 03:00: Silverio ARIASN, PRN H ermann 00 See Nurse's Notes, Start date: 02/22/13 22:00:00, 250 ml Lovenox 2012-0 No Liana 40 mg, 0.4 M emoria 8-29 Ahmed mL, Route: l 23:00: Badar SUB-Q, [place] 00 Drug form: INJ, [id number], Start date: 02/22/13 18:00:00, Duration: 30 day, Stop date: 03/23/13 18:00:00 Lovenox 2012-0 No Liana 40 mg, 0.4 M emoria 8-29 Ahmed mL, Route: l 23:00: Badar SUB-Q, [place] 00 Drug form: INJ, [id number], Start date: 02/22/13 18:00:00, Duration: 30 day, Stop date: 03/23/13 18:00:00 Lovenox 2012-0 No Liana 40 mg, 0.4 M emoria 8-29 Ahmed mL, Route: l 23:00: Badar SUB-Q, [place] 00 Drug form: INJ, [id number], Start date: 02/22/13 18:00:00, Duration: 30 day, Stop date: 03/23/13 18:00:00 Lovenox 2012-0 No Liana 40 mg, 0.4 M emoria 8-29 Ahmed mL, Route: l 23:00: Badar SUB-Q, [place] 00 Drug form: INJ, [id number], Start date: 02/22/13 18:00:00, Duration: 30 day, Stop date: 03/23/13 18:00:00 Lovenox 2013-0 No Liana 40 mg, 0.4 M emoria 8-29 Ahmed mL, Route: l 23:00: Badar SUB-Q, [place] 00 Drug form: INJ, [id number], Start date: 02/22/13 18:00:00, Duration: 30 day, Stop date: 03/23/13 18:00:00 Lovenox 2012-0 No Liana 40 mg, 0.4 M emoria 8-29 Ahmed mL, Route: l 23:00: Badar SUB-Q, [place] 00 Drug form: INJ, [id number], Start date: 02/22/13 18:00:00, Duration: 30 day, Stop date: 03/23/13 18:00:00 vancomycin 2012-0 No Liana 1.25 gm, Memoria + Dextrose 8-29 Ahmed Route: l 5% in Water 18:00: Badar IVPB, Drug Jesús IV 250 mL 00 form: INJ, [id number], Dosing Weight 65, kg, Start date: 02/22/13 13:00:00, Stop date: 03/24/13 1:00:00 vancomycin 2012-0 No Liana 1.25 gm, Memoria + Dextrose 8-29 Ahmed Route: l 5% in Water 18:00: Badar IVPB, Drug [place] IV 250 mL 00 form: INJ, [id number], Dosing Weight 65, kg, Start date: 02/22/13 13:00:00, Stop date: 03/24/13 1:00:00 vancomycin 2012-0 No Liana 1.25 gm, Memoria + Dextrose 8-29 Ahmed Route: l 5% in Water 18:00: Badar IVPB, Drug [place] IV 250 mL 00 form: INJ, [id number], Dosing Weight 65, kg, Start date: 02/22/13 13:00:00, Stop date: 03/24/13 1:00:00 vancomycin 2012-0 No Liana 1.25 gm, Memoria + Dextrose 8-29 Ahmed Route: l 5% in Water 18:00: Badar IVPB, Drug Jesús IV 250 mL 00 form: INJ, [id number], Dosing Weight 65, kg, Start date: 02/22/13 13:00:00, Stop date: 03/24/13 1:00:00 vancomycin 2012-0 No Liana 1.25 gm, Memoria + Dextrose 8-29 Ahmed Route: l 5% in Water 18:00: Badar IVPB, Drug [place] IV 250 mL 00 form: INJ, [id number], Dosing Weight 65, kg, Start date: 02/22/13 13:00:00, Stop date: 03/24/13 1:00:00 vancomycin 2012-0 No Liana 1.25 gm, Memoria + Dextrose 8-29 Ahmed Route: l 5% in Water 18:00: Badar IVPB, Drug [place] IV 250 mL 00 form: INJ, [id number], Dosing Weight 65, kg, Start date: 02/22/13 [...] No Nancy-Ye 250 mL, Mem oria 1,250 8- Irlanda Sameer Rate: l microgram 17:18: Titrate, Herm karina 00 Dosing Weight 65, kg, Route: IV, Total Volume: 250, Duration: 30 day, Stop date: 03/24/13 12:17:00, Replace Every: 24 hr fentanyl 2012-0 No Nancy-Ye 250 mL, Mem oria 1,250 8 Irlanda Sameer Rate: l microgram 17:18: Titrate, Herm karina Dosing Weight 65, kg, Route: IV, Total Volume: 250, Duration: 30 day, Stop date: 03/24/13 12:17:00, Replace Every: 24 hr sodium 2012-0 No Liana 10 mmol, Hossein diana phosphate + 8-29 Ahmed 3.33 mL, l Sodium 17:: Rob Route: Jesús Chloride 00 IVPB, 0.9% IV 250 ONCE, mL Dosing Weight 65, kg, PRN Abnormal Lab Result, Start date: 02/22/13 12:09:00, Stop date: 03/24/13 12:08:00 sodium 2012-0 No Liana 10 mmol, Hossein diana phosphate + 8-29 Ahmed 3.33 mL, l Sodium 17:: Rob Route: [place] Chloride 00 IVPB, 0.9% IV 250 ONCE, mL Dosing Weight 65, kg, PRN Abnormal Lab Result, Start date: 02/22/13 12:09:00, Stop date: 03/24/13 12:08:00 sodium 2012-0 No Liana 10 mmol, Hossein diana phosphate + 8-29 Ahmed 3.33 mL, l Sodium 17:: Badar Route: Jesús Chloride 00 IVPB, 0.9% [...] 3.33 mL, l Sodium 17:09: Badar Route: [place] Chloride 00 IVPB, 0.9% IV 250 ONCE, mL Dosing Weight 65, kg, PRN Abnormal Lab Result, Start date: 02/22/13 12:09:00, Stop date: 03/24/13 12:08:00 sodium 2013-0 No Liana 10 mmol, Hossein diana phosphate + 8-29 Ahmed 3.33 mL, l Sodium 17:09: Badar Route: [place] Chloride 00 IVPB, 0.9% IV 250 ONCE, mL Dosing Weight 65, kg, PRN Abnormal Lab Result, Start date: 02/22/13 12:09:00, Stop date: 03/24/13 12:08:00 Lovenox 2013-0 No Liana 70 mg, 0.7 M emoria 8-29 Ahmed mL, Route: l 17:08: Badar SUB-Q, Jesús 00 Drug form: INJ, [id number], Dosing Weight 65, kg, Priority: NOW, Start date: 02/22/13 12:08:00, Duration: 30 day, Stop date: 03/24/13 0:08:00 Lovenox 2013-0 No Liana 70 mg, 0.7 M emoria 8-29 Ahmed mL, Route: l 17:08: Badar SUB-Q, Jesús 00 Drug form: INJ, [id number], Dosing Weight 65, kg, Priority: NOW, Start date: 02/22/13 12:08:00, Duration: 30 day, Stop date: 03/24/13 0:08:00 Lovenox 2013-0 No Liana 70 mg, 0.7 M emoria 8-29 Ahmed mL, Route: l 17:08: Badar SUB-Q, Jesús 00 Drug form: INJ, [id number], Dosing Weight 65, kg, Priority: NOW, Start date: 02/22/13 12:08:00, Duration: 30 day, Stop date: 03/24/13 0:08:00 Lovenox 2013-0 No Liana 70 mg, 0.7 M emoria 8-29 Ahmed mL, Route: l 17:08: Badar SUB-Q, Jesús 00 Drug form: INJ, [id number], Dosing Weight 65, kg, Priority: NOW, Start date: 02/22/13 12:08:00, Duration: 30 day, Stop date: 03/24/13 0:08:00 Lovenox 2013-0 No Liana 70 mg, 0.7 M emoria 8-29 Ahmed mL, Route: l 17:08: Badar SUB-Q, [place] 00 Drug form: INJ, [id number], Dosing Weight 65, kg, Priority: NOW, Start date: 02/22/13 12:08:00, Duration: 30 day, Stop date: 03/24/13 0:08:00 Lovenox 2013-0 No Liana 70 mg, 0.7 M emoria 8-29 Ahmed mL, Route: l 17:08: Badar SUB-Q, Jesús 00 Drug form: INJ, [id number], Dosing Weight 65, kg, Priority: NOW, Start date: 02/22/13 12:08:00, Duration: 30 day, Stop date: 03/24/13 0:08:00 Zosyn + 2012-0 No Liana 3.375 gm, Me moria Dextrose 5% 02-22 Ahmed Route: l in Water IV 17:07: Badar IVPB, Drug [place] 100 mL 00 form: PDR/INJ, [id number], Dosing [...] in Water IV 17:07: Badar IVPB, Drug [place] 100 mL 00 form: PDR/INJ, [id number], Dosing [...] in Water IV 17:07: Badar IVPB, Drug [place] 100 mL 00 form: PDR/INJ, [id number], Dosing Weight 65, kg, CrCl >= 20 ml/min infuse over 4 hours, Priority: NOW, Start date: 02/22/13 12:07:00, Stop date: 03/24/13 4:07:00 Zosyn + 2012-0 No Liana 3.375 gm, Me moria Dextrose 5% 8-29 Ahmed Route: l in Water IV 17:07: Badar IVPB, Drug [place] 100 mL 00 form: PDR/INJ, [id number], Dosing Weight 65, kg, CrCl >= 20 ml/min infuse over 4 hours, Priority: NOW, Start date: 02/22/13 12:07:00, Stop date: 03/24/13 4:07:00 Norvasc No Jeff 5 mg, 1 Memor ia 8-29 Barbara tab, l 16:24: Jr Route: PO, [place] Drug form: TAB, Daily, Start date: 02/22/13 11:24:00, Duration: 30 day, Stop date: 03/24/13 9:00:00 Norvasc No Jeff 5 mg, 1 Memor ia 8-29 Barbara tab, l 16:24: Jr Route: PO, [place] Drug form: TAB, Daily, Start date: 02/22/13 11:24:00, Duration: 30 day, Stop date: 03/24/13 9:00:00 Norvasc No Jeff 5 mg, 1 Memor ia 8-29 Barbara tab, l 16:24: Jr Route: PO, Jesús 00 Drug form: TAB, Daily, Start date: 02/22/13 11:24:00, Duration: 30 day, Stop date: 03/24/13 [facility] Memor ia 8-29 Barbara tab, l 16:24: Jr Route: PO, Jesús 00 Drug form: TAB, Daily, Start date: 02/22/13 11:24:00, Duration: 30 day, Stop date: 03/24/13 9:00:00 [facility], 1 Memor ia 8-29 Barbara tab, l 16:24: Jr Route: PO, [place] 00 Drug form: TAB, Daily, Start date: 02/22/13 11:24:00, Duration: 30 day, Stop date: 03/24/13 9:00:00 [facility], 1 Memor ia 8-29 Barbara tab, l 16:24: Jr Route: PO, Jesús 00 Drug form: TAB, Daily, Start date: 02/22/13 11:24:00, Duration: 30 day, Stop date: 03/24/13 9:00:00 aspirin 2012-0 No Ike 81 mg, 1 Mem oria 8-29 Danny tab, l 14:00: Silverio Route: PO, He rm Drug form: CHEWTAB, Daily, Dosing Weight 65, kg, Start date: 02/22/13 9:00:00, Duration: 30 day, Stop date: 03/23/13 9:00:00 Fish Oil 2012- No Ike Route: PO, Memoria - Danny BID, l 14:00: Silverio Dosing Kishore n 00 Weight 65, kg, Start date: 02/22/13 9:00:00, Duration: 30 day, Stop date: 03/23/13 17:00:00 levothyroxi No Ike 50 Mem oria ne 02-22 Danny microgram, l 14:00: Silverio 1 tab, Kishore n 00 Route: PO, Drug form: TAB, Daily, Dosing Weight 65, kg, Start date: 02/22/13 9:00:00, Duration: 30 day, Stop date: 03/23/13 9:00:00 dipyridamol 2012- No Ike 75 mg, 1 Memoria e 02-22 Danny tab, l 14:00: Silverio Route: PO, Jonas Drug form: TAB, BID, Dosing Weight 65, [...] 30 day, Stop date: 03/23/13 17:00:00 alendronate 2013-0 No Ike 10 mg, 1 Memoria 8-29 Danny tab, l 14:00: Silverio Route: PO, Jonas rm Drug form: TAB, Daily, Dosing Weight 65, kg, Start date: 02/22/13 9:00:00, Duration: 30 day, Stop date: 03/23/13 9:00:00 aspirin 2012- No Ike 81 mg, 1 Mem oria 8-29 Danny tab, l 14:00: Silverio Route: PO, Jonas rm Drug form: CHEWTAB, Daily, Dosing Weight [...] tab, l 14:00: Silverio Route: PO, Jonas rmann 00 Drug form: TAB, Daily, Dosing [...] No Ike 75 mg, 1 Memoria e -29 Danny tab, l 14:00: Silverio Route: [...] day, Stop date: 03/23/13 9:00:00 Fish Oil 0 No Ike Route: PO, Memoria 8-29 Danny BID, l 14:00: Silverio Dosing Kishore n Weight 65, kg, Start date: 02/22/13 9:00:00, Duration: 30 day, Stop date: 03/23/13 17:00:00 levothyroxi 0 No Ike 50 Mem oria ne 8-29 [...] Danny tab, l 14:00: Silverio Route: PO, Drug form: TAB, Daily, Dosing Weight 65, kg, Start date: 02/22/13 9:00:00, Duration: 30 day, Stop date: 03/23/13 9:00:00 cilostazol 2012-0 No Ike 100 mg, 2 Memoria 8-29 Danny tab, l 14:00: Silverio Route: PO, Drug form: TAB, BID, Dosing Weight 65, [...] No Ike 81 mg, 1 Mem oria -29 Danny tab, l 14:00: Silverio Route: PO, rmann 00 Drug form: CHEWTAB, Daily, Dosing Weight 65, kg, Start date: 02/22/13 9:00:00, Duration: 30 day, Stop date: 03/23/13 9:00:00 Fish Oil 2012- No Ike Route: PO, Memoria - Danny BID, l 14:00: Silverio Dosing Kishore n 00 Weight 65, kg, Start date: 02/22/13 9:00:00, Duration: 30 day, Stop date: 03/23/13 17:00:00 levothyroxi No Ike 50 Mem oria ne 02-22 Danny microgram, l 14:00: Silverio 1 tab, Kishore n 00 Route: PO, Drug form: TAB, Daily, Dosing Weight 65, kg, Start date: 02/22/13 9:00:00, Duration: 30 day, Stop date: 03/23/13 9:00:00 dipyridamol No Ike 75 mg, 1 Memoria e 02-22 Danny tab, l 14:00: Silverio Route: PO, Jonas rm Drug form: TAB, BID, Dosing Weight 65, kg, Start date: 02/22/13 9:00:00, Duration: 30 day, Stop date: 03/23/13 17:00:00 Vitamin C No Ike Route: PO, Memoria - Danny BID, l 14:00: Silverio Dosing Kishore n Weight 65, kg, Start date: 02/22/13 9:00:00, Duration: 30 day, Stop date: 03/23/13 17:00:00 clopidogrel 2012-0 No Ike 75 mg, 1 Memoria 02-22 Danny tab, l 14:00: Silverio Route: POJonas rm Drug form: TAB, Daily, Dosing Weight [...] Danny tab, l 14:00: Silverio Route: PO, [facility] Drug form: CHEWTAB, Daily, Dosing Weight 65, kg, Start date: 02/22/13 9:00:00, Duration: 30 day, Stop date: 03/23/13 9:00:00 Fish Oil 2012-0 No Ike Route: PO, Memoria 8-29 Danny BID, l 14:00: Silverio Dosing Kishore n Weight 65, kg, Start date: 02/22/13 9:00:00, Duration: 30 day, Stop date: 03/23/13 17:00:00 levothyroxi 0 No Ike 50 Mem oria ne 8-29 Danny microgram, l 14:00: Silverio 1 tab, Kishore n 00 Route: PO, Drug form: TAB, Daily, Dosing Weight 65, kg, Start date: 02/22/13 9:00:00, Duration: 30 day, Stop date: 03/23/13 9:00:00 dipyridamol 2012-0 No Ike 75 mg, 1 Memoria e 8-29 Danny tab, l 14:00: Silverio Route: PO, [facility] Drug form: TAB, BID, Dosing Weight 65, [...] 2012-0 No Ike 100 mg, 2 Memoria 02-22 Danny tab, l 14:00: Silverio [...] Stop date: 02/22/13 16:00:00 chlorhexidi 0 No Iek 15 mL, M emoria ne topical 02-22 [...] Ike 15 mL, M emoria ne topical - Danny Route: l 0.12% 05:00: Silverio S&SPIT, [...] No Liana 1.5 gm, Me moria Sodium - Ahmed Route: l Chloride 05:00: Badar IVPB, [place] 0.9% IV 100 00 [id number], mL Start date: 02/22/13 0:00:00, Duration: 1 day, Stop date: 02/22/13 16:00:00 chlorhexidi 2012-0 No Ike 15 mL, M emoria ne topical - Danny Route: l 0.12% 05:00: Silverio S&SPIT, Herm karina liquid 00 Q6H, Drug form: LIQ, Start date: 02/22/13 0:00:00, Duration: 30 day, Stop date: 03/23/13 18:00:00 Pulmicort 2012- No Ike 0.5 mg, 2 Memoria Respules [...] No Liana 1.5 gm, Me moria Sodium - Ahmed Route: l Chloride 05:00: Badar IVPB, [place] 0.9% IV 100 00 [id number], mL Start date: 02/22/13 0:00:00, Duration: 1 day, Stop date: 02/22/13 16:00:00 chlorhexidi No Ike 15 mL, M emoria ne topical - Danny Route: l 0.12% 05:00: Silverio S&SPIT, Herm karina liquid 00 Q6H, Drug form: LIQ, Start date: 02/22/13 0:00:00, Duration: 30 day, Stop date: 03/23/13 18:00:00 Pulmicort 2012-0 No Ike 0.5 mg, 2 Memoria Respules 02-22 Danny mL, Route: l 05:00: Silverio SANCHEZ, Drug mckee 00 form: SOLN, Q6H, Start date: 02/22/13 0:00:00, Duration: 30 day, Stop date: 03/23/13 18:00:00 DuoNeb 2012-0 No Liana 3 mL, Memoria inhalation 02-22 Ahmed Route: l solution 05:00: Rob SANCHEZ, Drug [place] 00 Form: SOLN, Q6H, Start date: 02/22/13 0:00:00, Duration: 30 day, Stop date: 03/23/13 18:00:00 Zinacef + 2012-0 No Liana 1.5 gm, Me moria Sodium - Ahmed Route: l Chloride 05:00: Badar IVPB, [place] 0.9% IV 100 00 [id number], mL Start date: 02/22/13 0:00:00, Duration: 1 day, Stop date: 02/22/13 16:00:00 chlorhexidi 2012-0 No Ike 15 mL, M emoria ne topical 8- Danny Route: l 0.12% 05:00: Silverio S&SPIT, Herm karina liquid 00 Q6H, Drug form: LIQ, Start date: 02/22/13 0:00:00, Duration: 30 day, Stop date: 03/23/13 18:00:00 Pulmicort 2012- No Ike 0.5 mg, 2 Memoria Respules 02-22 Danny mL, Route: l 05:00: Silverio NEB, Drug Her mckee 00 form: SOLN, Q6H, Start date: 02/22/13 0:00:00, Duration: 30 day, Stop date: 03/23/13 18:00:00 DuoNeb 2012- No Liana 3 mL, Memoria inhalation 02-22 Ahmed Route: l solution 05:00: Rob NEB, Drug Her mckee 00 Form: SOLN, Q6H, Start date: 02/22/13 0:00:00, Duration: 30 day, Stop date: 03/23/13 18:00:00 propofol 10 No Liana IV, Start Memoria mg/ml 02-22 Ahmed date: l (titrate) 03:29: [facility] 02/21/13 Her mckee 1,000 mg 00 22:29:00, Duration: 30, 100 ml, 65 propofol 10 No Liana IV, Start Memoria mg/ml 02-22 Ahmed date: l (titrate) 03:29: 02/21/13 Her mckee 1,000 mg 00 22:29:00, Duration: 30, 100 ml, 65 propofol 10 No Liana IV, Start Memoria mg/ml 02-22 Ahmed date: l (titrate) 03:29: [facility] 02/21/13 Her mckee 1,000 mg 00 22:29:00, Duration: 30, 100 ml, 65 propofol 10 No Liana IV, Start Memoria mg/ml 02-22 Ahmed date: l (titrate) 03:29: [facility] 02/21/13 Her mckee 1,000 mg 00 22:29:00, Duration: 30, 100 ml, 65 propofol 10 No Liana IV, Start Memoria mg/ml 02-22 Ahmed date: l (titrate) 03:29: [facility] 02/21/13 Her mckee 1,000 mg 00 22:29:00, [...] Ahmed microgram, l 02:46: Badar 0.5 mL, [place] 00 Route: IV, Drug form: INJ, Q1H, [...] Ahmed microgram, l 02:46: Badar 0.5 mL, [place] Route: IV, Drug form: INJ, Q1H, PRN Pain, Start date: 02/21/13 21:46:00, Duration: 30 day, Stop date: 03/23/13 21:45:00 Sublimaze No Liana 25 Memor ia 8-29 Ahmed microgram, l 02:46: Badar 0.5 mL, [place] Route: IV, Drug form: INJ, Q1H, PRN Pain, Start date: 02/21/13 21:46:00, Duration: 30 day, Stop date: 03/23/13 21:45:00 Sublimaze 2013-0 No Liana 25 Memor ia 02-22 Ahmed [...] 03/23/13 21:42:00, PRN Blood Glucose Results Insulin 2012-0 No Devan 99 mL, Hossein diana regular 100 8-29 A. Loyd Rate: l unit + 02:42: titrate, [place] Sodium 00 Route: IV, Chloride Dosing 0.9% IV 99 Weight 65 mL kg, Total Volume: 100, Start date: 02/21/13 21:42:00, Duration: 30 day, Stop date: 03/23/13 21:41:00 Insulin 2012-0 No Devan 99 mL, Hossein diana regular 100 8-29 A. Loyd Rate: l unit + 02:42: titrate, Jesús Sodium 00 Route: IV, Chloride Dosing 0.9% IV 99 Weight 65 mL kg, Total Volume: 100, Start date: 02/21/13 21:42:00, Duration: 30 day, Stop date: 03/23/13 21:41:00 Insulin 2012-0 No Devan 99 mL, Hossein diana regular 100 8-29 A. Loyd Rate: l unit + 02:42: titrate, [place] Sodium 00 Route: IV, Chloride Dosing 0.9% IV 99 Weight 65 mL kg, Total Volume: 100, Start date: 02/21/13 21:42:00, Duration: 30 day, Stop date: 03/23/13 21:41:00 Insulin 2012-0 No Devan 99 mL, Hossein diana regular 100 8-29 A. Loyd Rate: l unit + 02:42: titrate, [place] Sodium 00 Route: IV, Chloride Dosing 0.9% IV 99 Weight 65 mL kg, Total Volume: 100, Start date: 02/21/13 21:42:00, Duration: 30 day, Stop date: 03/23/13 21:41:00 Insulin 2012-0 No Devan 99 mL, Hossein diana regular 100 8-29 A. Loyd Rate: l unit + 02:42: titrate, Jesús Sodium 00 Route: IV, Chloride Dosing 0.9% IV 99 Weight 65 mL kg, Total Volume: 100, Start date: 02/21/13 21:42:00, Duration: 30 day, Stop date: 03/23/13 21:41:00 Insulin 2012-0 No Devan 99 mL, Hossein diana regular 100 8 A. Loyd Rate: l unit + 02:42: titrate, [place] Sodium 00 Route: IV, Chloride Dosing 0.9% [...] ia 02-22 Route: l 02:00: IVP, Drug [place] 00 form: INJ, Before Dinner, Start date: [...] mg, 1 Memoria -29 Danny tab, l 02:00: Silverio Route: PO, He rmann Drug form: TAB, Bedtime, Dosing Weight 65, kg, Start date: 02/21/13 21:00:00, Duration: 30 day, Stop date: 03/22/13 21:00:00 Protonix 2012-0 No Franky 40 mg, Memor ia 8-29 Avendaño Route: l 02:00: IVP, Drug Jesús 00 [...] ia 02-22 Route: l 02:00: IVP, Drug [place] 00 form: INJ, Before Dinner, Start date: [...] ia 02-22 Route: l 02:00: IVP, Drug [place] 00 form: INJ, Before Dinner, Start date: 02/21/13 21:00:00, Duration: 30 day, Stop date: 03/23/13 16:30:00 simvastatin 2012-0 No Ike 10 mg, 1 Memoria - Dnany tab, l 02:00: Silverio Route: PO, He rmann 00 Drug form: TAB, Bedtime, Dosing Weight 65, kg, Start date: 02/21/13 21:00:00, Duration: 30 day, Stop date: 03/22/13 21:00:00 Protonix 2012-0 No Franky 40 mg, Memor ia 02-22 Route: l 02:00: IVP, Drug [place] 00 form: INJ, Before Dinner, Start date: 02/21/13 21:00:00, Duration: 30 day, Stop date: 03/23/13 16:30:00 Sublimaze No Franky 25 Memori a 8-29 Avendaño microgram, l 01:06: 0.5 mL, [place] 00 Route: IV, Drug form: INJ, ONCE, Start date: 02/21/13 20:06:00, Stop date: 02/21/13 20:06:00 Sublimaze No Franky 25 Memori a 8-29 Avendaño microgram, l 01:06: 0.5 mL, [place] 00 Route: IV, Drug form: INJ, ONCE, [...] 02-21 Danny mL, Route: l 23:00: Silverio LAURA, Drug Her mckee 00 form: REFUGIO BUTLER, Start date: 02/21/13 18:00:00, Duration: 1 day, Stop date: 02/22/13 17:59:00 Xopenex 2012-0 No Ike 1.25 mg, 3 M emoria 02-21 Danny mL, Route: l 23:00: Silverio LAURA, Drug Her mckee 00 form: REFUGIO BUTLER, [...] 02-21 Danny mL, Route: l 23:00: Silverio LAURA, Drug Her mckee 00 form: REFUGIO BUTLER, [...] 17:54:00, Duration: 30, 100 ml, 65 Cordarone 2012-0 No Nancy-Ye 482 mL, Me moria 900 mg + 02-21 Irlanda Sameer Rate: l Dextrose 5% 22:54: titrate, He rmann in Water IV 00 Route: IV, 482 mL Dosing Weight 65 kg, Total Volume: 500, Start date: 02/21/13 17:54:00, Duration: 30 day, Stop date: 03/23/13 17:53:00 Cordarone + 2012-0 No Franky 150 mg, 3 Memoria Dextrose 5% 02-21s mL, Route: l in Water IV 22:54: [...] 30 day, Stop date: 03/23/13 17:53:00 milrinone 2012- No Nancy-Ye IV, Start Memoria in D5W 02-21 Irlanda Sameer date: l Premix 20 22:54: 02/21/13 Herm karina mg 00 17:54:00, Duration: 30, 100 ml, 65 DOBUTamine No Nancy-Ye IV, Start Memoria in D5W 02-21 Irlanda Sameer date: l Premix 22:53: 02/21/13 [place] 1,000 mg 00 17:53:00, Duration: 30, 250 [...] mL, Route: l 22:53: IV, Drug Jesús form: INJ, Dosing Weight 65, kg, Start [...] 02-21 Irlanda Sameer date: l 22:53: 02/21/13 [place] 00 17:53:00, 200 ml, 65 DOBUTamine No Nancy-Ye IV, Start Memoria in D5W 02-21 Irlanda Sameer date: l Premix 22:53: 02/21/13 [place] 1,000 mg 00 17:53:00, Duration: 30, 250 [...] 02-21 Irlanda Sameer date: l 22:53: 02/21/13 [place] 00 17:53:00, 200 ml, 65 DOBUTamine No Nancy-Ye IV, Start Memoria in D5W 02-21 Irlanda Sameer date: l Premix 22:53: 02/21/13 [place] 1,000 mg 00 17:53:00, Duration: 30, 250 [...] mL, Route: l 22:53: IV, Drug Jesús form: INJ, Dosing Weight 65, kg, Start date: 02/21/13 17:53:00, Duration: 30 day, Stop date: 03/23/13 17:52:00 Nitropress 2012- No Nancy-Ye 250 mL, M emoria 50 mg + 02-21 Irlanda Sameer Rate: l Dextrose 5% 22:53: titrate, He rmann in Water IV 00 Route: IV, 250 mL Dosing Weight 65 kg, Total Volume: 252, Start date: 02/21/13 17:53:00, Duration: 30 day, Stop date: 03/23/13 17:52:00 niCARdipine No Nancy-Ye IV, Start Memoria 02-21 Irlanda Sameer date: l 22:53: 02/21/13 [place] 00 17:53:00, 200 ml, 65 DOBUTamine No Nancy-Ye IV, Start Memoria in D5W 02-21 Irlanda Sameer date: l Premix 22:53: 02/21/13 [place] 1,000 mg 00 17:53:00, Duration: 30, 250 ml, 65 epinephrine No Nancy-Ye 250 mL, Memoria 5 mg + -28 Irlanda Sameer Rate: l Dextrose 5% 22:53: [...] 02-21 Irlanda Sameer date: l 22:53: 02/21/13 [place] 00 17:53:00, 200 ml, 65 DOBUTamine No Nancy-Ye IV, Start Memoria in D5W 02-21 Irlanda Sameer date: l Premix 22:53: 02/21/13 [place] 1,000 mg 00 17:53:00, Duration: 30, 250 [...] Sameer mL, Route: l 22:53: IV, Drug [place] 00 form: INJ, Dosing Weight 65, kg, [...] 02-21 Irlanda Sameer date: l 22:53: 02/21/13 [place] 00 17:53:00, 200 ml, 65 DOBUTamine No [...] Sameer mL, Route: l 22:53: IV, Drug [place] form: INJ, Dosing Weight 65, kg, Start date: 02/21/13 17:53:00, Duration: 30 day, Stop date: 03/23/13 17:52:00 Nitropress 2012- No Nancy-Ye 250 mL, M emoria 50 mg + 02-21 Irlanda Sameer Rate: l Dextrose 5% 22:53: titrate, He rmann in Water IV 00 Route: IV, 250 mL Dosing Weight 65 kg, Total Volume: 252, Start date: 02/21/13 17:53:00, Duration: 30 day, Stop date: 03/23/13 17:52:00 niCARdipine No Nancy-Ye IV, Start Memoria 02-21 Irlanda Sameer date: l 22:53: 02/21/13 [place] 00 17:53:00, 200 ml, 65 Dulcolax No Ike 10 mg, 1 Me moria Laxative 02-21 Danny supp, l 22:52: Silverio Route: [place], He rmann 00 Drug form: SUPP, Daily, [...] l one 325 22:52: Silverio Drug Form: [place] mg-5 mg 00 TAB, Q3H, oral tablet PRN Pain Score 4-6, Start date: 02/21/13 17:52:00, Duration: 30 day, Stop date: 03/23/13 17:51:00 tramadol 50 2012- No Ike 50 mg, 1 Memoria mg oral 02-21 Danny tab, l tablet 22:52: Silverio Route: PO, Jesús 00 Drug form: TAB, Q6H, PRN Pain Score 4-6, Start date: 02/21/13 17:52:00, Duration: 30 day, Stop date: 03/23/13 17:51:00 Dulcolax No Ike 10 mg, 1 Me moria Laxative 02-21 Danny supp, l 22:52: Silverio Route: [place], He rmann 00 Drug form: SUPP, Daily, PRN Constipati on, Start date: 02/21/13 17:52:00, Duration: 30 day, Stop date: 03/23/13 17:51:00 Zofran 2012- No Ike 8 mg, 4 Memor ia [...] 30 day, Stop date: 03/23/13 17:51:00 morphine 0 No Liana 8 mg, 1 Mem oria Sulfate 02-21 Ahmed mL, Route: l 22:52: Badar IM, Drug Jesús 00 form: INJ, Q3H, PRN Pain Score 7-10, Start date: 02/21/13 17:52:00, Duration: 30 day, Stop date: 03/23/13 17:51:00 acetaminoph 2012-0 No Ike 2 tab, M emoria en-hydrocod 02-21 Adnny Route: PO, l one 325 22:52: Silverio Drug Form: Jesús mg-5 mg 00 TAB, Q3H, oral tablet PRN Pain Score 4-6, Start date: 02/21/13 17:52:00, Duration: 30 day, Stop date: 03/23/13 17:51:00 tramadol 50 2012- No Ike 50 mg, 1 Memoria mg oral 02-21 Danny tab, l tablet 22:52: Silverio Route: PO, [place] 00 Drug form: TAB, Q6H, PRN Pain Score 4-6, Start date: 02/21/13 17:52:00, Duration: 30 day, Stop date: 03/23/13 17:51:00 Dulcolax 0 No Ike 10 mg, 1 Me moria Laxative 02-21 Danny supp, l 22:52: Silverio Route: [place], He rmann 00 Drug form: SUPP, Daily, [...] Avendaño mL, Route: l 22:52: IM, Drug [place] 00 form: INJ, Q3H, PRN Pain, Start date: 02/21/13 17:52:00, Duration: 30 day, Stop date: 03/23/13 17:51:00 morphine No Liana 8 mg, 1 Mem oria Sulfate 02-21 Ahmed mL, Route: l 22:52: Badar IM, Drug [place] 00 form: INJ, Q3H, PRN Pain Score 7-10, Start date: 02/21/13 17:52:00, Duration: 30 day, Stop date: 03/23/13 17:51:00 acetaminoph No Ike 2 tab, M emoria en-hydrocod 02-21 Danny Route: PO, l one 325 22:52: Silverio Drug Form: [place] mg-5 mg 00 TAB, Q3H, oral tablet [...] 02-21 Danny supp, l 22:52: Silverio Route: [place], He rmann 00 Drug form: SUPP, Daily, [...] tab, l tablet 22:52: Silverio Route: PO, [place] 00 Drug form: TAB, Q6H, PRN Pain Score 4-6, Start date: 02/21/13 17:52:00, Duration: 30 day, Stop date: 03/23/13 17:51:00 Dulcolax No Ike 10 mg, 1 Me moria Laxative 02-21 Danny supp, l 22:52: Silverio Route: MN, He rmann 00 Drug form: SUPP, Daily, [...] 30 day, Stop date: 03/23/13 17:51:00 morphine 2012- No Liana 8 mg, 1 Mem oria [...] 02-21 Danny supp, l 22:52: Silverio Route: MN, He rmann 00 Drug form: SUPP, Daily, [...] Avendaño mL, Route: l 22:52: IM, Drug [place] 00 form: INJ, Q3H, PRN Pain, Start [...] tab, l tablet 22:52: Silverio Route: PO, [place] 00 Drug form: TAB, Q6H, PRN Pain Score 4-6, Start date: 02/21/13 17:52:00, Duration: 30 day, Stop date: 03/23/13 17:51:00 morphine No Liana 2 mg, 1 Mem oria Sulfate 02-21 Ahmed mL, Route: l 22:51: Badar IV, Drug [place] 00 form: INJ, Q1H, PRN Pain Score 4-6, Start date: 02/21/13 17:51:00, Duration: 30 day, Stop date: 03/23/13 17:50:00 Tylenol 0 No Iek 650 mg, 1 Me moria 02-21 Danny supp, l 22:51: Silverio Route: [place], He rm Drug form: SUPP, Q4H, PRN Fever, Start date: 02/21/13 17:51:00, Duration: 30 day, Stop date: 03/23/13 17:50:00 sodium 2012- No Franky 15 mmol, 5 Mem oria phosphate + 02-21 Avendaño mL, Route: l Sodium 22:51: IV, PRN, Jesús Chloride 00 PRN 0.9% IV 250 Abnormal mL Lab Result, Start date: 02/21/13 17:51:00, Duration: 30 day, Stop date: 03/23/13 17:50:00 potassium 2012-0 No Franky 15 mmol, 5 Memoria phosphate + 02-21 Avendaño mL, Route: l Sodium 22:51: IV, PRN, Jesús Chloride 00 PRN 0.9% IV 250 Abnormal mL Lab Result, Start date: 02/21/13 17:51:00, Duration: 30 day, Stop date: 03/23/13 17:50:00 morphine 2012-0 No Liana 2 mg, 1 Mem oria Sulfate 02-21 Ahmed mL, Route: l 22:51: Badar IV, Drug [place] 00 form: INJ, Q1H, PRN Pain Score 4-6, Start date: 02/21/13 17:51:00, Duration: 30 day, Stop date: 03/23/13 17:50:00 Tylenol 2012-0 No Ike 650 mg, 1 Me moria 02-21 Danny supp, l 22:51: Silverio Route: [place], He rm 00 Drug form: SUPP, Q4H, PRN Fever, [...] mL, Route: l Sodium 22:51: IV, PRN, [place] Chloride 00 PRN 0.9% IV 250 Abnormal [...] 8-28 Danny supp, l 22:51: Silverio Route: [place], [facility] Drug form: SUPP, Q4H, PRN Fever, Start date: 02/21/13 17:51:00, Duration: 30 day, Stop date: 03/23/13 17:50:00 sodium 2012-0 No Franky 15 mmol, 5 Mem oria phosphate + 8- Avendaño mL, Route: l Sodium 22:51: IV, PRN, Jesús Chloride 00 PRN 0.9% IV 250 Abnormal mL Lab Result, Start date: 02/21/13 17:51:00, Duration: 30 day, Stop date: 03/23/13 17:50:00 potassium 2013-0 No Franky 15 mmol, 5 Memoria phosphate + 8- Avendaño mL, Route: l Sodium 22:51: IV, PRN, [place] Chloride 00 PRN 0.9% IV 250 Abnormal mL Lab Result, Start date: 02/21/13 17:51:00, Duration: 30 day, Stop date: 03/23/13 17:50:00 morphine 2013-0 No Liana 2 mg, 1 Mem oria Sulfate 8-28 Ahmed mL, Route: l 22:51: Badar IV, Drug [place] 00 form: INJ, Q1H, PRN Pain Score 4-6, Start date: 02/21/13 17:51:00, Duration: 30 day, Stop date: 03/23/13 17:50:00 Tylenol 2012-0 No Ike 650 mg, 1 Me moria 8-28 Danny supp, l 22:51: Silverio Route: [place], rm Drug form: SUPP, Q4H, PRN Fever, Start [...] Franky 15 mmol, 5 Memoria phosphate + 02-21 Avendaño mL, Route: l Sodium 22:51: IV, PRN, [place] Chloride 00 PRN 0.9% IV 250 Abnormal [...] 02-21 Danny supp, l 22:51: Silverio Route: [place], He rm 00 Drug form: SUPP, Q4H, PRN Fever, Start date: 02/21/13 17:51:00, Duration: 30 day, Stop date: 03/23/13 17:50:00 sodium 2012-0 No Franky 15 mmol, 5 Mem oria phosphate + 02-21 Avendaño mL, Route: l Sodium 22:51: IV, PRN, [place] Chloride 00 PRN 0.9% IV 250 Abnormal mL Lab Result, Start date: 02/21/13 17:51:00, Duration: 30 day, Stop date: 03/23/13 17:50:00 potassium 2012-0 No Franky 15 mmol, 5 Memoria phosphate + 02-21 Avendaño mL, Route: l Sodium 22:51: IV, PRN, [place] Chloride 00 PRN 0.9% IV 250 Abnormal mL Lab Result, Start date: 02/21/13 17:51:00, Duration: 30 day, Stop date: 03/23/13 17:50:00 morphine 2012-0 No Liana 2 mg, 1 Mem oria Sulfate 8-28 Ahmed mL, Route: l 22:51: Badar IV, Drug [place] 00 form: INJ, Q1H, PRN Pain Score 4-6, Start date: 02/21/13 17:51:00, Duration: 30 day, Stop date: 03/23/13 17:50:00 Tylenol 2012-0 No Ike 650 mg, 1 Me moria 8-28 Danny supp, l 22:51: Silverio Route: MN, He rmann 00 Drug form: SUPP, Q4H, [...] Ike 2,000 mg, Me moria gluconate + 8- Danny 20 mL, l Sodium 22:50: Silverio [...] sulfate 02-21 Rate: 50 l 22:50: ml/hr, [place] 00 Infuse over: 60 minutes, Route: IVPB, [...] sulfate 02-21s Rate: 50 l 22:50: ml/hr, [place] 00 Infuse over: 60 minutes, Route: IVPB, [...] sulfate 02-21 Rate: 50 l 22:50: ml/hr, [place] 00 Infuse over: 60 minutes, Route: IVPB, Total Volume: 50, Start date: 02/21/13 17:50:00, Duration: 30 day, Stop date: 03/23/13 17:49:00, PRN Abnormal Lab Result calcium 2012- No Ike 2,000 mg, Me moria gluconate [...] 03/23/13 17:49:00, PRN Abnormal Lab Result potassium 2012-0 No Ike 20 mEq, Me moria chloride 02-21 Danny 100 mL, l 22:49: Silverio Route: [...] Ike IV, Start M emoria Sulfate 30 - Danny date: l mg 22:40: Silverio 02/21/13 Herm karina 00 17:40:00, Duration: 30, 30 ml, 65 morphine 2012-0 No Ike IV, Start M emoria Sulfate 30 - Danny date: l mg 22:40: Silverio 02/21/13 Herm karina 00 17:40:00, Duration: 30, 30 ml, 65 morphine No Ike IV, Start M emoria Sulfate 30 02-21 Danny date: l mg 22:40: Silverio 02/21/13 Herm karina 00 17:40:00, Duration: 30, 30 ml, 65 morphine No Ike IV, Start M emoria Sulfate 30 02-21 Danny date: l mg 22:40: Silverio 02/21/13 Herm karina 00 17:40:00, Duration: 30, 30 ml, 65 morphine No Ike IV, Start M emoria Sulfate 30 02-21 Danny date: l mg 22:40: Silverio 02/21/13 Herm karina 17:40:00, Duration: 30, 30 ml, 65 morphine No Ike IV, Start M emoria Sulfate 30 02-21 Danny date: l mg 22:40: Silverio 02/21/13 Herm karina 17:40:00, Duration: 30, 30 ml, 65 D5W [...] 0.9% IV 22:38: Silverio IVPB, Herm karina Start date: 02/21/13 17:38:00, Duration: 30 day, Stop date: 03/23/13 17:37:00, PRN Line Flush BD Normal No Ike 10 mL, Mem oria Saline 02-21 Danny Route: l Flush 22:38: Silverio IVP, Drug He rmann 00 Form: INJ, PRN, PRN Line Flush, [...] Flush 22:38: Silverio IVP, Drug He rmann 00 Form: INJ, PRN, PRN Line Flush, [...] 03/23/13 17:37:00, PRN Line Flush BD Normal 0 No Ike 10 mL, Mem oria Saline [...] on Allowed Vitamin C Yes 240MG, 1 Hossien diana 8-27 TAB, PO, l 18:47: BID, [...] 8-27 tab, PO, l 18:45: BID, with [place] 38 300mg OMEGA 2, Substituti on Allowedwit h 300mg OMEGA 2 Fish Oil Yes 600mg, 1 Memor ia 8-27 tab, PO, l 18:45: BID, with [place] 38 300mg OMEGA 2, Substituti on Allowedwit h 300mg OMEGA 2 Fish Oil Yes 600mg, 1 Memor ia 8-27 tab, PO, l 18:45: BID, with [place] 38 300mg OMEGA 2, Substituti on Allowedwit h 300mg OMEGA 2 Fish Oil Yes 600mg, 1 Memor ia 8-27 tab, PO, l 18:45: BID, with [place] 38 300mg OMEGA 2, Substituti on Allowedwit h 300mg OMEGA 2 Fish Oil Yes 600mg, 1 Memor ia 8-27 tab, PO, l 18:45: BID, with [place] 38 300mg OMEGA 2, Substituti on Allowedwit [...] 57 on Allowed, Maintenanc e Calcium 600 2012- Yes 1 tab, PO, Memoria +D oral 8-27 BID, l tablet 18:44: Substituti Lilian nn 57 on Allowed, Maintenanc e acetaminoph No 500mg, 2 Me moria en 8-27 tabs, PO, l 18:44: PRN, Jesús Substituti on Allowed acetaminoph No 500mg, 2 Me moria en 8-27 tabs, PO, l 18:44: PRN, Jesús Substituti on Allowed acetaminoph No 500mg, 2 Me moria en 8-27 tabs, PO, l 18:44: PRN, Jesús Substituti on Allowed acetaminoph No 500mg, 2 Me moria en 8-27 tabs, PO, l 18:44: PRN, Jesús Substituti on Allowed acetaminoph No 500mg, 2 Me moria en 8-27 tabs, PO, l 18:44: PRN, Jesús Substituti on Allowed acetaminoph No 500mg, 2 Me moria en 8-27 tabs, PO, l 18:44: PRN, Jesús Substituti on Allowed alendronate Yes 70 mg, 1 Me moria 70 mg oral 8-27 tab, PO, l tablet, 18:42: QMTiarra hayesann effervescen 50 Substituti t on Allowed alendronate Yes 70 mg, 1 Me moria 70 mg oral 8-27 tab, PO, l tablet, 18:42: QMonTiarraJesús effervescen 50 Substituti t on Allowed alendronate Yes 70 mg, 1 Me moria 70 mg oral 8-27 tab, PO, l tablet, 18:42: QMon, Jesús effervescen 50 Substituti t on Allowed alendronate Yes 70 mg, 1 Me moria 70 mg oral 8-27 tab, PO, l tablet, 18:42: QMonTiarraJesús effervescen 50 Substituti t on Allowed alendronate Yes 70 mg, 1 Me moria 70 mg oral 8-27 tab, PO, l tablet, 18:42: QMJesús hayes effervescen 50 Substituti t on Allowed alendronate Yes 70 mg, 1 Me moria 70 mg oral 8-27 tab, PO, l tablet, 18:42: Jesús Pelayo effervescen 50 Substituti t on Allowed Aspirin Low No 81 mg, 1 Me moria Dose 81 mg 8-27 tab, PO, l oral tablet 18:41: Daily, Tiarra collins 41 Substituti on Allowed Aspirin Low No 81 mg, 1 Me moria Dose 81 mg 827 tab, PO, l oral tablet 18:41: Daily, [...] oral 8-27 PO, l tablet 18:39: Bedtime, [place] 49 30 tab, Substituti on Allowed simvastatin 2012-0 No 0, 1 tab, M emoria 10 mg oral 8-27 PO, l tablet 18:39: Bedtime, Jesús 49 30 tab, Substituti on Allowed simvastatin 2013-0 No 0, 1 tab, M emoria 10 mg oral 8-27 PO, l tablet 18:39: Bedtime, [place] 49 30 tab, Substituti on Allowed simvastatin 2013-0 No 0, 1 tab, M emoria 10 mg oral 8-27 PO, l tablet 18:39: Bedtime, [place] 49 30 tab, Substituti on Allowed simvastatin 2013-0 No 0, 1 tab, M emoria 10 mg oral 8-27 PO, l tablet 18:39: Bedtime, Jesús 49 30 tab, Substituti on Allowed simvastatin 2013-0 No 0, 1 tab, M emoria 10 mg oral 8-27 PO, l tablet 18:39: Bedtime, Jesús 49 30 tab, Substituti on Allowed cilostazol 2013-0 No 100 mg, 1 Me moria 100 mg oral 8-27 tab, PO, l tablet 18:39: BID, 180 Jesús 38 tab, Substituti on Allowed, TAB cilostazol 2013-0 No 100 mg, 1 Me moria 100 mg oral 8-27 tab, PO, l tablet 18:39: BID, 180 [place] 38 tab, Substituti on Allowed, TAB cilostazol [...] tab, PO, l tablet 18:39: BID, 180 [place] 38 tab, Substituti on Allowed, TAB cilostazol 2013-0 No 100 mg, 1 Me moria 100 mg oral 8-27 tab, PO, l tablet 18:39: BID, 180 Jesús 38 tab, Substituti on Allowed, TAB dipyridamol 2013-0 No 75 mg, 1 Me moria e 75 mg 8-27 tab, PO, l oral tablet 18:38: BID, Kishore n 50 Substituti on Allowed dipyridamol 2013-0 No 75 mg, 1 Me moria e 75 mg 8-27 tab, PO, l oral tablet 18:38: BID, Kishore n 50 Substituti on Allowed dipyridamol 2013-0 No 75 mg, 1 Me moria e 75 mg 8-27 tab, PO, l oral tablet 18:38: BID, Kishore n 50 Substituti on Allowed dipyridamol 2013-0 No 75 mg, 1 Me moria e 75 mg 8-27 tab, PO, l oral tablet 18:38: BID, Kishore n 50 Substituti on Allowed dipyridamol 2013-0 No 75 mg, 1 Me moria e 75 mg 8-27 tab, PO, l oral tablet 18:38: BID, Kishore n 50 Substituti on Allowed dipyridamol 2013-0 No 75 mg, 1 Me moria e 75 mg 8-27 tab, PO, l oral tablet 18:38: BID, Kishore n 50 Substituti on Allowed Vital Signs Vital Name Observation Time Observation Value Comments Source Respitory Rate 2021-01-14 17:00:00 Memori al Jesús Systolic (mm Hg) 2021-01-14 17:00:00 Hossein rial [place] Diastolic (mm Hg) 2021-01-14 17:00:00 Mem orial Jesús Respitory Rate 2021-01-14 16:00:00 Memori al [place] Systolic (mm Hg) 2021-01-14 16:00:00 Hossein rial Jesús Diastolic (mm Hg) 2021-01-14 16:00:00 Mem orial [place] Respitory Rate 2021-01-14 15:00:00 Memori al Jesús Systolic (mm Hg) 2021-01-14 15:00:00 Hossein rial Jesús Diastolic (mm Hg) 2021-01-14 15:00:00 Mem orial [place] Temperature Oral (F) 2021-01-13 12:20:[address] [facility] Height 2021-01-08 18:20:[address] [facility] Weight 2021-01-08 18:20:00 [facility] BMI Calculated 2021-01-08 18:20:00 Memori al Jesús Heart Rate 2021-01-08 18:20:00 [facility] Jesú[place] Respitory Rate 2020-10-29 17:00:00 Memori al [place] Systolic (mm Hg) 2020-10-29 17:00:00 Hossein rial [place] Diastolic (mm Hg) 2020-10-29 17:00:00 Mem orial Jesús Respitory Rate 2020-10-29 16:00:00 Memori al [place] Systolic (mm Hg) 2020-10-29 16:00:00 Hossein rial Jesús Diastolic (mm Hg) 2020-10-29 16:00:00 Mem orial [place] Respitory Rate 2020-10-29 15:00:00 Memori al [place] Systolic (mm Hg) 2020-10-29 15:00:00 Hossein rial Jesús Diastolic (mm Hg) 2020-10-29 15:00:00 Mem orial [place] Temperature Oral (F) 2020-10-28 14:24:00 97.5 F [facility] Jesús Height 2020-10-24 18:06:00 149.86 cm [facility] Weight 2020-10-24 18:06:00 [facility] BMI Calculated 2020-10-24 18:06:00 Memori al Jesús Heart Rate 2020-10-24 18:06:00 [facility] [place] Respitory Rate 2020-10-24 18:06:00 Memori al Jesús Systolic (mm Hg) 2020-10-24 18:06:00 Hossein rial [place] Diastolic (mm Hg) 2020-10-24 18:06:00 Mem orial [place] Height 2020-09-18 15:59:00 149.86 cm [facility] [place] Weight 2020-09-18 15:59:00 [facility] Jesús BMI Calculated 2020-09-18 15:59:00 Memori al Jesú[place] Height 2018-06-13 18:53:00 149.86 cm [facility] BMI Calculated 2018-06-13 18:53:00 Memori al [place] Weight 2018-06-13 18:53:00 [facility] [place] Respitory Rate 2017-11-18 19:45:00 Memori al Jesú[place] Systolic (mm Hg) 2017-11-18 19:45:00 Hossein rial Jesús Diastolic (mm Hg) 2017-11-18 19:45:00 Mem orial [place] Heart Rate 2017-11-18 19:45:00 [facility] [place] Systolic (mm Hg) 2017-11-18 15:40:00 Hossein rial Jesús Diastolic (mm Hg) 2017-11-18 15:40:00 Mem orial Jesús Heart Rate 2017-11-18 15:40:00 [facility] [place] Respitory Rate 2017-11-18 15:40:00 Memori al [place] Heart Rate 2017-11-18 12:00:00 [facility] Jesú[place] Respitory Rate 2017-11-18 12:00:00 Memori al Jesú[place] Systolic (mm Hg) 2017-11-18 12:00:00 Hossein rial Jesús Diastolic (mm Hg) 2017-11-18 12:00:00 Mem orial Jesús Weight 2017-11-18 10:00:00 [facility] [place] Weight 2017-11-17 10:00:00 [facility] [place] Height 2017-11-15 13:11:00 149.86 cm [facility] [place] Height 2017-11-15 09:35:00 149.86 cm [facility] [place] Height 2017-11-15 05:00:00 149.86 cm [facility] BMI Calculated 2017-11-14 14:18:00 Memori al [place] Weight 2017-11-14 14:18:00 [facility] Jesú[place] Temperature Oral (F) 2017-11-14 14:15:00 97.5 F [facility] [place] Height 2015-12-08 15:46:00 149.86 cm [facility] BMI Calculated 2015-12-08 15:46:00 Memori al Jesú[place] Weight 2015-12-08 15:46:00 [facility] [place] Respitory Rate 2014-02-10 20:25:00 Memori al Jesú[place] Temperature Oral (F) 2014-02-10 17:00:00 98 F [facility] [place] Systolic (mm Hg) 2014-02-10 17:00:00 Hossein rial Jesús Diastolic (mm Hg) 2014-02-10 17:00:00 Mem orial [place] Respitory Rate 2014-02-10 17:00:00 Memori al [place] Heart Rate 2014-02-10 17:00:00 [facility] Jesú[place] Temperature Oral (F) 2014-02-10 12:47:00 97.8 F [facility] Diastolic (mm Hg) 2014-02-10 12:47:00 Mem orial Jesú[place] Systolic (mm Hg) 2014-02-10 12:47:00 Hossein rial Jesús Heart Rate 2014-02-10 12:47:00 [facility] [place] Respitory Rate 2014-02-10 12:47:00 Memori al Jesús Diastolic (mm Hg) 2014-02-10 09:00:00 Mem orial Jesús Systolic (mm Hg) 2014-02-10 09:00:00 Hossein rial Jesús Heart Rate 2014-02-10 09:00:00 [facility] [place] Temperature Oral (F) 2014-02-10 09:00:00 97.8 F [facility] [place] Height 2014-02-01 14:50:00 149.86 cm [facility] [place] BMI Calculated 2014-02-01 14:50:00 Memori al [place] Weight 2014-02-01 14:50:00 [facility] [place] Heart Rate 2013-03-02 17:23:00 [facility] Jesús Temperature Oral (F) 2013-03-02 17:23:00 98.4 F [facility] Systolic (mm Hg) 2013-03-02 17:23:00 Hossein rial Jesús Diastolic (mm Hg) 2013-03-02 17:23:00 Mem orial Jesús Respitory Rate 2013-03-02 17:23:00 Memori al [place] Diastolic (mm Hg) 2013-03-02 13:07:00 Mem orial [place] Systolic (mm Hg) 2013-03-02 13:07:00 Hossein rial [place] Respitory Rate 2013-03-02 13:07:00 Memori al Jesús Temperature Oral (F) 2013-03-02 13:07:00 98.0 F [facility] Jes[facility] Heart Rate 2013-03-02 13:07:00 [facility] Weight 2013-03-02 10:19:00 [facility] Respitory Rate 2013-03-02 10:18:00 Memori al [place] Systolic (mm Hg) 2013-03-02 10:18:00 Hossein rial [place] Diastolic (mm Hg) 2013-03-02 10:18:00 Mem orial Jesús Temperature Oral (F) 2013-03-02 10:18:00 98.7 F [facility] [place] Heart Rate 2013-03-02 10:18:00 [facility] [place] Weight 2013-03-01 09:00:00 [facility] Height 2013-02-20 18:23:00 149.86 cm [facility] [place] Weight 2013-02-20 18:23:00 [facility] [place] Procedures Procedure Date / Time Performed Performing Clinician [facility] e Placement of stent, RIGHT 2012-06-02 06:00:00 Me morial [place] GROIN<sup>1</sup> Placement of stent, RIGHT 2012-06-02 06:00:00 Me morial [place] GROIN <sup>4</sup> Diagnostic arteriogram, 2004-11-12 05:00:00 Hossein rial [place] RENAL, CAROTID SUBCLAVIAN-SUBCLAVIAN GRAFT & RIGHT BRACHIAL Diagnostic arteriogram, 2004-11-12 05:00:00 Jose Alberto Price Hossein rial Jesús RENAL, CAROTID SUBCLAVIAN-SUBCLAVIAN GRAFT & RIGHT BRACHIAL Insertion of coronary 1995-07-07 06:00:00 Memori al [place] artery stent, LEFT, ANGIOPLASTY Insertion of coronary 1995-07-07 06:00:00 Memori al [place] artery stent, LEFT, ANGIOPLASTY Angioplasty, RIGHT 1995-07-04 06:00:00 [facility] CORONARY Angioplasty, RIGHT 1995-07-04 06:00:00 [facility] CORONARY Subclavian-subclavian 1995-06-30 06:00:00 Memori al [place] artery bypass graft with vein Subclavian-subclavian 1995-06-30 06:00:00 Memori al [place] artery bypass graft with vein Carotid endarterectomy, 1995-06-09 06:00:00 Hossein rial [place] RIGHT Carotid endarterectomy, 1995-06-09 06:00:00 Hossein rial Jesús RIGHT Miscellaneous 1995-06-06 06:00:00 [facility] [place] operations<sup>4</sup> Miscellaneous operations 1995-06-06 06:00:00 Mem orial [place] <sup>2</sup> Leg repair<sup>3</sup> [facility] Jesús Leg repair <sup>1</sup> [facility] Jes[facility]s Encounters Start End Encounter Admission Attending Care Care Encounter Source Date/Time Date/Time Type Type Clinicians Facility Department ID 2019-08-29 Outpatient SURI PRICE CAR [id number] [facility] 15:17:49 JOSE ALBERTO 2023-03-11 2023-03-11 Outpatient [id number] PRIV PRIV [id number] [facility] 00:00:00 00:00:00 [id number] Medic al 2023-01-11 2023-01-11 Outpatient SERVANDO [facility] [id number] [facility] 06:25:00 13:38:00 REGINA 2022-11-03 2022-11-03 Outpatient CATHI LIUIL [facility] JAYDEN [id number] [facility] 09:24:00 23:59:00 2021-01-13 2021-01-14 Inpatient nullFlavo [facility] [id number] Memoria 11:56:00 18:45:00 wilmer Espinosa 12 l [facility] 2021-01-13 2021-01-14 Inpatient U SILVERIO [facility] [id number] [facility] 06:56:00 13:45:00 IKE 2021-01-08 2021-01-09 Outpt Diag nullFlavo [facility] [id number] Memoria 19:33:00 04:59:00 Services r Outpatient 07 l [facility] 2020-10-28 2020-10-29 Inpatient nullFlavo [facility] [id number] Memoria 10:55:00 19:00:00 wilmer Espinosa 11 l [facility] 2020-10-28 2020-10-29 Inpatient SILVERIO [facility] [id number] [facility] 05:55:00 14:00:00 IKE 2020-10-24 2020-10-25 Outpt Diag nullFlavo [facility] [id number] Memoria 19:35:00 04:59:00 Services r Outpatient 06 l [facility] 2020-09-18 2020-09-19 Outpatient nullFlavo [facility] [id number] Memoria 14:47:00 04:59:00 wilmer Espinosa 10 l [facility] 2020-09-18 2020-09-18 Outpatient DANISH, [facility] CAR [id number] [facility] 09:47:00 23:59:00 JOSE ALBERTO 2018-06-13 2018-06-14 Outpatient nullFlavo [facility] [id number] Memoria 17:21:00 05:59:00 wilmer Espinosa 08 l [facility] 2017-11-15 2017-11-18 Inpatient nullFlavo [facility] [id number] Memoria 12:16:00 22:45:00 r Jesús 07 l [facility] 2017-11-04 2017-11-05 Outpatient nullFlavo [place] [id number] Memoria 14:00:00 04:59:00 r [place] 06 l [facility] 2015-12-08 2015-12-09 Outpatient nullFlavo [facility] [id number] Memoria 13:55:00 04:59:00 r Jesús 05 l [facility] 2014-02-06 2014-02-10 Inpatient nullFlavo [facility] [id number] Memoria 10:56:00 20:45:00 r Jesús 04 [facility] 2014-02-01 2014-02-02 Outpt Diag nullFlavo [facility] [id number] Memoria 14:54:00 04:59:00 Services r Outpatient 01 l [facility] 2013-12-10 2013-12-11 Outpatient nullFlavo [place] [id number] Memoria 18:00:00 04:59:00 r [place] 03 l [facility] 2013-11-08 2013-11-09 Outpatient nullFlavo [facility] [id number] Memoria 12:00:00 04:59:00 r Jesús 02 l [facility] 2013-02-21 2013-03-02 [id number] Memoria 05:43:00 15:23:00 r [facility] 01 l Jesús 2013-01-05 2013-01-05 Outpatient nullFlavo [id number] Memoria 08:00:00 08:00:00 r [facility] 00 l Jesús Results Test Description Test Time Test Comments Results Result Comments Source CHEM PANEL 2021-01-14 09:22:00 Test Item Value Reference Range Interpretation Comme nts Glucose Lvl (test code = Glucose Lvl) 93 70-[facility] [id number] 09:22:00 Test Item Value Reference Range Interpretation Comments BUN (test code = BUN) 01-15 [facility] [id number] 09:22:00 Test Item Value Reference Range Interpretation Comments Creatinine Lvl (test code = Creatinine 0.70 0.50-1.40 Lvl) [facility] [id number] 09:22:00 Test Item Value Reference Range Interpretation Comments Sodium Lvl (test code = Sodium Lvl) 137 135-145 [place] [id number] 09:22:00 Test Item Value Reference Range Interpretation Comments Potassium Lvl (test code = Potassium 4.0 3.5-5.1 Lvl) [place] [id number] 09:22:00 Test Item Value Reference Range Interpretation Comments Chloride Lvl (test code = Chloride Lvl) 106 95-109 [place] [id number] 09:22:00 Test Item Value Reference Range Interpretation Comments CO2 (test code = CO2) 26 24-32 [place] [id number] 09:22:00 Test Item Value Reference Range Interpretation Comments AGAP (test code = AGAP) 9.0 10.0-20.0 [place] [id number] 09:22:00 Test Item Value Reference Range Interpretation Comments Calcium Lvl (test code = Calcium Lvl) 8.0 8.5-10.5 [place] [id number] 09:22:00 Test Item Value Reference Range Interpretation Comments eGFR (test code = eGFR) 89 [place] [id number] 09:22:00 Test Item Value Reference Range Interpretation Comments Magnesium Lvl (test code = Magnesium 2.2 1.8-2.4 Lvl) [place] [id number] 09:22:00 Test Item Value Reference Range Interpretation Comments Phosphorus (test code = Phosphorus) 3.3 2.5-4.5 [place] [id number] 09:22:00 Test Item Value Reference Range Interpretation Comments PTT (test code = PTT) 31.9 s 22.9-35.8 [place] [id number] 09:22:00 Test Item Value Reference Range Interpretation Comments PT (test code = PT) 14.0 s 12.0-14.7 [place] [address]-07-21 09:22:00 Test Item Value Reference Range Interpretation Comments INR (test code = INR) 1.09 1 0.85-1.17 [place] [address]-07-21 09:22:00 Test Item Value Reference Range Interpretation Comments WBC X 10x3 (test code = WBC X 10x3) 7.2 3.7-10.4 [id number] 09:22:00 Test Item Value Reference Range Interpretation Comments RBC X 10x6 (test code = RBC X 10x6) 3.44 4.20-5.40 [facility] [id number] 09:22:00 Test Item Value Reference Range Interpretation Comments Hgb (test code = Hgb) 10.9 12.0-16.0 [facility] HospitalM[id number] 09:22:00 Test Item Value Reference Range Interpretation Comments Hct (test code = Hct) 31.9 36.0-48.0 [facility] Ho[id number] 09:22:00 Test Item Value Reference Range Interpretation Comments MCV (test code = MCV) 92.7 80.0-98.0 [facility] [id number] 09:22:00 Test Item Value Reference Range Interpretation Comments MCH (test code = MCH) 31.6 pg 27.0-31.0 [facility] HospitalCrcbatbFSCJSVVKIW8528-08-58 09:22:00 Test Item Value Reference Range Interpretation Comments MCHC (test code = MCHC) 34.1 32.0-36.0 [facility] H[id number] 09:22:00 Test Item Value Reference Range Interpretation Comments RDW (test code = RDW) 12.9 11.5-14.5 [facility] [id number] 09:22:00 Test Item Value Reference Range Interpretation Comments Platelet (test code = Platelet) 220 133-450 [facility] Hospit[id number] 09:22:00 Test Item Value Reference Range Interpretation Comments MPV (test code = MPV) 8.1 7.4-10.4 [facility] [id number] 09:22:00 Test Item Value Reference Range Interpretation Comments Segs (test code = Segs) 76.8 45.0-75.0 [facility] HospitalLzowuehNREYBZOVOZ3278-45-00 09:22:00 Test Item Value Reference Range Interpretation Comments Lymphocytes (test code = Lymphocytes) 13.4 20.0-40.0 [facility] [id number] 09:22:00 Test Item Value Reference Range Interpretation Comments Monocytes (test code = Monocytes) 5.8 2.0-12.0 [place] [id number] 09:22:00 Test Item Value Reference Range Interpretation Comments Eosinophils (test code = 3.2 See_Comment [A utomated message] The Eosinophils) system which ge nerated this result tra nsmitted reference range : <=4.0. The reference r katie was not used to int erpret this result as normal/abnormal . [facility] [id number] 09:22:00 Test Item Value Reference Range Interpretation Comments Basophils (test code = 0.8 See_Comment [Aut omated message] The Basophils) system which ge nerated this result tra nsmitted reference range : <=1.0. The reference r katie was not used to int erpret this result as normal/abnormal . [facility] HospitalDhbvabwVRYMRIRPWY6172-33-09 09:22:00 Test Item Value Reference Range Interpretation Comments Neutrophils # (test code = Neutrophils 5.6 1.5-8.1 #) [facility] Hos[id number] 09:22:00 Test Item Value Reference Range Interpretation Comments Lymphocytes # (test code = Lymphocytes 1.0 1.0-5.5 #) [facility] [id number] 09:22:00 Test Item Value Reference Range Interpretation Comments Monocytes # (test code 0.4 See_Comment [Aut omated message] The = Monocytes #) system which generated this result tra nsmitted reference range : <=0.8. The reference r katie was not used to int erpret this result as normal/abnormal . [facility] H[id number] 09:22:00 Test Item Value Reference Range Interpretation Comments Eosinophils # (test code 0.2 See_Comment [A utomated message] The = Eosinophils #) system whic h generated this result tra nsmitted reference range : <=0.5. The reference r katie was not used to int erpret this result as normal/abnormal . [facility] HospitalOnbxwqnVVVKUNTCQO0149-82-30 09:22:00 Test Item Value Reference Range Interpretation Comments Basophils # (test code 0.1 See_Comment [Aut omated message] The = Basophils #) system which generated this result tra nsmitted reference range : <=0.2. The reference r katie was not used to int erpret this result as normal/abnormal . [facility] HospitalPARATHYROID [id number] 09:22:00 Test Item Value Reference Range Interpretation Comments Ca Ion WB (test code = Ca Ion WB) 1.06 1.05-1.25 [facility] [id number] 09:22:00 Test Item Value Reference Range Interpretation Comments Ca Norm WB (test code = Ca Norm WB) 1.06 1.05-1.25 [place] 918531-07-21 09:22:00 Test Item Value Reference Range Interpretation Comments Glucose Lvl (test code = Glucose Lvl) 93 70-99 [place] 918531-07-21 09:22:00 Test Item Value Reference Range Interpretation Comments BUN (test code = BUN) 22 7-22 [place] 918531-07-21 09:22:00 Test Item Value Reference Range Interpretation Comments Creatinine Lvl (test code = Creatinine 0.70 0.50-1.40 Lvl) [place] 918531-07-21 09:22:00 Test Item Value Reference Range Interpretation Comments Sodium Lvl (test code = Sodium Lvl) 137 135-145 [place] 918531-07-21 09:22:00 Test Item Value Reference Range Interpretation Comments Potassium Lvl (test code = Potassium 4.0 3.5-5.1 Lvl) [place] 918531-07-21 09:22:00 Test Item Value Reference Range Interpretation Comments Chloride Lvl (test code = Chloride Lvl) 106 95-109 [place] 918531-07-21 09:22:00 Test Item Value Reference Range Interpretation Comments CO2 (test code = CO2) 26 24-32 [place] 918531-07-21 09:22:00 Test Item Value Reference Range Interpretation Comments AGAP (test code = AGAP) 9.0 10.0-20.0 [place] 918531-07-21 09:22:00 Test Item Value Reference Range Interpretation Comments Calcium Lvl (test code = Calcium Lvl) 8.0 8.5-10.5 [place] 918531-07-21 09:22:00 Test Item Value Reference Range Interpretation Comments eGFR (test code = eGFR) 89 [place] 918531-07-21 09:22:00 Test Item Value Reference Range Interpretation Comments Magnesium Lvl (test code = Magnesium 2.2 1.8-2.4 Lvl) [facility]2021-07-21 09:22:00 Test Item Value Reference Range Interpretation Comments Phosphorus (test code = Phosphorus) 3.3 2.5-4.5 [place] 824581-07-21 09:22:00 Test Item Value Reference Range Interpretation Comments PTT (test code = PTT) 31.9 s 22.9-35.8 [place] 824581-07-21 09:22:00 Test Item Value Reference Range Interpretation Comments PT (test code = PT) 14.0 s 12.0-14.7 [place] 824581-07-21 09:22:00 Test Item Value Reference Range Interpretation Comments INR (test code = INR) 1.09 1 0.85-1.17 [place] 824581-07-21 09:22:00 Test Item Value Reference Range Interpretation Comments WBC X 10x3 (test code = WBC X 10x3) 7.2 3.7-10.4 [place] 824581-07-21 09:22:00 Test Item Value Reference Range Interpretation Comments RBC X 10x6 (test code = RBC X 10x6) 3.44 4.20-5.40 [place] 824581-07-21 09:22:00 Test Item Value Reference Range Interpretation Comments Hgb (test code = Hgb) 10.9 12.0-16.0 [place] 824581-07-21 09:22:00 Test Item Value Reference Range Interpretation Comments Hct (test code = Hct) 31.9 36.0-48.0 [place] 824581-07-21 09:22:00 Test Item Value Reference Range Interpretation Comments MCV (test code = MCV) 92.7 80.0-98.0 [place] 824581-07-21 09:22:00 Test Item Value Reference Range Interpretation Comments MCH (test code = MCH) 31.6 pg 27.0-31.0 [place] 824581-07-21 09:22:00 Test Item Value Reference Range Interpretation Comments MCHC (test code = MCHC) 34.1 32.0-36.0 [place] 824581-07-21 09:22:00 Test Item Value Reference Range Interpretation Comments RDW (test code = RDW) 12.9 11.5-14.5 [place] 824581-07-21 09:22:00 Test Item Value Reference Range Interpretation Comments Platelet (test code = Platelet) 220 133-450 [place] 824581-07-21 09:22:00 Test Item Value Reference Range Interpretation Comments MPV (test code = MPV) 8.1 7.4-10.4 [place] 824581-07-21 09:22:00 Test Item Value Reference Range Interpretation Comments Segs (test code = Segs) 76.8 45.0-75.0 [place] 824581-07-21 09:22:00 Test Item Value Reference Range Interpretation Comments Lymphocytes (test code = Lymphocytes) 13.4 20.0-40.0 [place] 824581-07-21 09:22:00 Test Item Value Reference Range Interpretation Comments Monocytes (test code = Monocytes) 5.8 2.0-12.0 [place] 824581-07-21 09:22:00 Test Item Value Reference Range Interpretation Comments Eosinophils (test code = 3.2 See_Comment [A utomated message] The Eosinophils) system which ge nerated this result tra nsmitted reference range : <=4.0. The reference r katie was not used to int erpret this result as normal/abnormal . [place] 824581-07-21 09:22:00 Test Item Value Reference Range Interpretation Comments Basophils (test code = 0.8 See_Comment [Aut omated message] The Basophils) system which ge nerated this result tra nsmitted reference range : <=1.0. The reference r katie was not used to int erpret this result as normal/abnormal . [place] 824581-07-21 09:22:00 Test Item Value Reference Range Interpretation Comments Neutrophils # (test code = Neutrophils 5.6 1.5-8.1 #) [place] 824581-07-21 09:22:00 Test Item Value Reference Range Interpretation Comments Lymphocytes # (test code = Lymphocytes 1.0 1.0-5.5 #) [place] 824581-07-21 09:22:00 Test Item Value Reference Range Interpretation Comments Monocytes # (test code 0.4 See_Comment [Aut omated message] The = Monocytes #) system which generated this result tra nsmitted reference range : <=0.8. The reference r katie was not used to int erpret this result as normal/abnormal . [place] 824581-07-21 09:22:00 Test Item Value Reference Range Interpretation Comments Eosinophils # (test code 0.2 See_Comment [A utomated message] The = Eosinophils #) system whic h generated this result tra nsmitted reference range : <=0.5. The reference r katie was not used to int erpret this result as normal/abnormal . [id number] 09:22:00 Test Item Value Reference Range Interpretation Comments Basophils # (test code 0.1 See_Comment [Aut omated message] The = Basophils #) system which generated this result tra nsmitted reference range : <=0.2. The reference r katie was not used to int erpret this result as normal/abnormal . [facility]2021-07-21 09:22:00 Test Item Value Reference Range Interpretation Comments Ca Ion WB (test code = Ca Ion WB) 1.06 1.05-1.25 [facility] HospitalXelor SoftwareKENNETH VIL[facility] [id number] 09:22:00 Test Item Value Reference Range Interpretation Comments Ca Norm WB (test code = Ca Norm WB) 1.06 1.05-1.25 [facility] [id number] 09:22:00 Test Item Value Reference Range Interpretation Comments Glucose Lvl (test code = Glucose Lvl) 93 70-99 [facility] [id number] 09:22:00 Test Item Value Reference Range Interpretation Comments BUN (test code = BUN) 22 7-22 [facility] [id number] 09:22:00 Test Item Value Reference Range Interpretation Comments Creatinine Lvl (test code = Creatinine 0.70 0.50-1.40 Lvl) [facility] [id number] 09:22:00 Test Item Value Reference Range Interpretation Comments Sodium Lvl (test code = Sodium Lvl) 137 135-145 [facility] [id number] 09:22:00 Test Item Value Reference Range Interpretation Comments Potassium Lvl (test code = Potassium 4.0 3.5-5.1 Lvl) [place] 918531-07-21 09:22:00 Test Item Value Reference Range Interpretation Comments Chloride Lvl (test code = Chloride Lvl) 106 95-109 [place] [address]-07-21 09:22:00 Test Item Value Reference Range Interpretation Comments CO2 (test code = CO2) 26 24-32 [place] 22[address]-07-21 09:22:00 Test Item Value Reference Range Interpretation Comments AGAP (test code = AGAP) 9.0 10.0-20.0 [place] [address]-07-21 09:22:00 Test Item Value Reference Range Interpretation Comments Calcium Lvl (test code = Calcium Lvl) 8.0 8.5-10.5 [place] 918531-07-21 09:22:00 Test Item Value Reference Range Interpretation Comments eGFR (test code = eGFR) 89 [place] [address]-07-21 09:22:00 Test Item Value Reference Range Interpretation Comments Magnesium Lvl (test code = Magnesium 2.2 1.8-2.4 Lvl) [place] 918531-07-21 09:22:00 Test Item Value Reference Range Interpretation Comments Phosphorus (test code = Phosphorus) 3.3 2.5-4.5 [place] [address]-07-21 09:22:00 Test Item Value Reference Range Interpretation Comments PTT (test code = PTT) 31.9 s 22.9-35.8 [place] [address]-07-21 09:22:00 Test Item Value Reference Range Interpretation Comments PT (test code = PT) 14.0 s 12.0-14.7 [place] [address]-07-21 09:22:00 Test Item Value Reference Range Interpretation Comments INR (test code = INR) 1.09 1 0.85-1.17 [place] [address]-07-21 09:22:00 Test Item Value Reference Range Interpretation Comments WBC X 10x3 (test code = WBC X 10x3) 7.2 3.7-10.4 [place] [address]-07-21 09:22:00 Test Item Value Reference Range Interpretation Comments RBC X 10x6 (test code = RBC X 10x6) 3.44 4.20-5.40 [place] 824581-07-21 09:22:00 Test Item Value Reference Range Interpretation Comments Hgb (test code = Hgb) 10.9 12.0-16.0 [place] 824581-07-21 09:22:00 Test Item Value Reference Range Interpretation Comments Hct (test code = Hct) 31.9 36.0-48.0 [place] 824581-07-21 09:22:00 Test Item Value Reference Range Interpretation Comments MCV (test code = MCV) 92.7 80.0-98.0 [place] 824581-07-21 09:22:00 Test Item Value Reference Range Interpretation Comments MCH (test code = MCH) 31.6 pg 27.0-31.0 [place] 824581-07-21 09:22:00 Test Item Value Reference Range Interpretation Comments MCHC (test code = MCHC) 34.1 32.0-36.0 [place] 824581-07-21 09:22:00 Test Item Value Reference Range Interpretation Comments RDW (test code = RDW) 12.9 11.5-14.5 [place] 824581-07-21 09:22:00 Test Item Value Reference Range Interpretation Comments Platelet (test code = Platelet) 220 133-450 [facility] HospitalJupxcleUJOWXCPCSM4587-57-77 09:22:00 Test Item Value Reference Range Interpretation Comments MPV (test code = MPV) 8.1 7.4-10.4 [place] 824581-07-21 09:22:00 Test Item Value Reference Range Interpretation Comments Segs (test code = Segs) 76.8 45.0-75.0 [place] 824581-07-21 09:22:00 Test Item Value Reference Range Interpretation Comments Lymphocytes (test code = Lymphocytes) 13.4 20.0-40.0 [place] 824581-07-21 09:22:00 Test Item Value Reference Range Interpretation Comments Monocytes (test code = Monocytes) 5.8 2.0-12.0 [facility] HospitalYnvlswhTTOWHGCLDP4058-89-05 09:22:00 Test Item Value Reference Range Interpretation Comments Eosinophils (test code = 3.2 See_Comment [A utomated message] The Eosinophils) system which ge nerated this result tra nsmitted reference range : <=4.0. The reference r katie was not used to int erpret this result as normal/abnormal . [place] 824581-07-21 09:22:00 Test Item Value Reference Range Interpretation Comments Basophils (test code = 0.8 See_Comment [Aut omated message] The Basophils) system which ge nerated this result tra nsmitted reference range : <=1.0. The reference r katie was not used to int erpret this result as normal/abnormal . [facility] HospitalNjkpvjpQPPTEHERDV8833-23-14 09:22:00 Test Item Value Reference Range Interpretation Comments Neutrophils # (test code = Neutrophils 5.6 1.5-8.1 #) [facility] HospitalFopzrseADZSCBFOKQ8869-68-09 09:22:00 Test Item Value Reference Range Interpretation Comments Lymphocytes # (test code = Lymphocytes 1.0 1.0-5.5 #) [facility] HospitalXqrapelQVDGNJAWIC5498-77-69 09:22:00 Test Item Value Reference Range Interpretation Comments Monocytes # (test code 0.4 See_Comment [Aut omated message] The = Monocytes #) system which generated this result tra nsmitted reference range : <=0.8. The reference r katie was not used to int erpret this result as normal/abnormal . [facility] HospitalBjxvimpBIANRKHCHN4192-13-91 09:22:00 Test Item Value Reference Range Interpretation Comments Eosinophils # (test code 0.2 See_Comment [A utomated message] The = Eosinophils #) system whic h generated this result tra nsmitted reference range : <=0.5. The reference r katie was not used to int erpret this result as normal/abnormal . [facility] HospitalRozyqsvWXBEWWRNXG4472-55-68 09:22:00 Test Item Value Reference Range Interpretation Comments Basophils # (test code 0.1 See_Comment [Aut omated message] The = Basophils #) system which generated this result tra nsmitted reference range : <=0.2. The reference r katie was not used to int erpret this result as normal/abnormal . [facility]2021-07-21 09:22:00 Test Item Value Reference Range Interpretation Comments Ca Ion WB (test code = Ca Ion WB) 1.06 1.05-1.25 [place] 959111-07-21 09:22:00 Test Item Value Reference Range Interpretation Comments Ca Norm WB (test code = Ca Norm WB) 1.06 1.05-1.25 [place] 918531-07-21 09:22:00 Test Item Value Reference Range Interpretation Comments Glucose Lvl (test code = Glucose Lvl) 93 70-99 [place] 918531-07-21 09:22:00 Test Item Value Reference Range Interpretation Comments BUN (test code = BUN) 22 7-22 [place] 918531-07-21 09:22:00 Test Item Value Reference Range Interpretation Comments Creatinine Lvl (test code = Creatinine 0.70 0.50-1.40 Lvl) [place] 918531-07-21 09:22:00 Test Item Value Reference Range Interpretation Comments Sodium Lvl (test code = Sodium Lvl) 137 135-145 [place] 918531-07-21 09:22:00 Test Item Value Reference Range Interpretation Comments Potassium Lvl (test code = Potassium 4.0 3.5-5.1 Lvl) [place] 918531-07-21 09:22:00 Test Item Value Reference Range Interpretation Comments Chloride Lvl (test code = Chloride Lvl) 106 95-109 [place] 918531-07-21 09:22:00 Test Item Value Reference Range Interpretation Comments CO2 (test code = CO2) 26 24-32 [place] 918531-07-21 09:22:00 Test Item Value Reference Range Interpretation Comments AGAP (test code = AGAP) 9.0 10.0-20.0 [place] 918531-07-21 09:22:00 Test Item Value Reference Range Interpretation Comments Calcium Lvl (test code = Calcium Lvl) 8.0 8.5-10.5 [place] 918531-07-21 09:22:00 Test Item Value Reference Range Interpretation Comments eGFR (test code = eGFR) 89 [place] 918531-07-21 09:22:00 Test Item Value Reference Range Interpretation Comments Magnesium Lvl (test code = Magnesium 2.2 1.8-2.4 Lvl) [place] 918531-07-21 09:22:00 Test Item Value Reference Range Interpretation Comments Phosphorus (test code = Phosphorus) 3.3 2.5-4.5 [facility]fe[facility]jkDXGWHVUHYW3317-20-28 09:22:00 Test Item Value Reference Range Interpretation Comments PTT (test code = PTT) 31.9 s 22.9-35.8 [place] 824581-07-21 09:22:00 Test Item Value Reference Range Interpretation Comments PT (test code = PT) 14.0 s 12.0-14.7 [place] 824581-07-21 09:22:00 Test Item Value Reference Range Interpretation Comments INR (test code = INR) 1.09 1 0.85-1.17 [place] 824581-07-21 09:22:00 Test Item Value Reference Range Interpretation Comments WBC X 10x3 (test code = WBC X 10x3) 7.2 3.7-10.4 [facility] HospitalIlvvseiWQWYPQYIJR2310-51-15 09:22:00 Test Item Value Reference Range Interpretation Comments RBC X 10x6 (test code = RBC X 10x6) 3.44 4.20-5.40 [facility] HospitalAvjurnsUKABAXBJTX2272-55-85 09:22:00 Test Item Value Reference Range Interpretation Comments Hgb (test code = Hgb) 10.9 12.0-16.0 [facility] HospitalGcruzgvFFCQRNNYPZ7790-45-93 09:22:00 Test Item Value Reference Range Interpretation Comments Hct (test code = Hct) 31.9 36.0-48.0 [facility] HospitalJrypaekMFAFGMPSIG2833-86-07 09:22:00 Test Item Value Reference Range Interpretation Comments MCV (test code = MCV) 92.7 80.0-98.0 [place] 824581-07-21 09:22:00 Test Item Value Reference Range Interpretation Comments MCH (test code = MCH) 31.6 pg 27.0-31.0 [facility] HospitalGjqppvyQUWKWQETZQ6192-32-13 09:22:00 Test Item Value Reference Range Interpretation Comments MCHC (test code = MCHC) 34.1 32.0-36.0 [facility] HospitalCbffurcBWZKXKUPFN8308-94-39 09:22:00 Test Item Value Reference Range Interpretation Comments RDW (test code = RDW) 12.9 11.5-14.5 [place] 824581-07-21 09:22:00 Test Item Value Reference Range Interpretation Comments Platelet (test code = Platelet) 220 133-450 [facility] HospitalBfkulycPFPYWAZEWI7117-90-17 09:22:00 Test Item Value Reference Range Interpretation Comments MPV (test code = MPV) 8.1 7.4-10.4 [place] 824581-07-21 09:22:00 Test Item Value Reference Range Interpretation Comments Segs (test code = Segs) 76.8 45.0-75.0 [place] 824581-07-21 09:22:00 Test Item Value Reference Range Interpretation Comments Lymphocytes (test code = Lymphocytes) 13.4 20.0-40.0 [place] 824581-07-21 09:22:00 Test Item Value Reference Range Interpretation Comments Monocytes (test code = Monocytes) 5.8 2.0-12.0 [place] 824581-07-21 09:22:00 Test Item Value Reference Range Interpretation Comments Eosinophils (test code = 3.2 See_Comment [A utomated message] The Eosinophils) system which ge nerated this result tra nsmitted reference range : <=4.0. The reference r katie was not used to int erpret this result as normal/abnormal . [place] 824581-07-21 09:22:00 Test Item Value Reference Range Interpretation Comments Basophils (test code = 0.8 See_Comment [Aut omated message] The Basophils) system which ge nerated this result tra nsmitted reference range : <=1.0. The reference r katie was not used to int erpret this result as normal/abnormal . [place] 824581-07-21 09:22:00 Test Item Value Reference Range Interpretation Comments Neutrophils # (test code = Neutrophils 5.6 1.5-8.1 #) [facility] HospitalSaeydsbOPGNJMRMWG4257-79-41 09:22:00 Test Item Value Reference Range Interpretation Comments Lymphocytes # (test code = Lymphocytes 1.0 1.0-5.5 #) [place] 824581-07-21 09:22:00 Test Item Value Reference Range Interpretation Comments Monocytes # (test code 0.4 See_Comment [Aut omated message] The = Monocytes #) system which generated this result tra nsmitted reference range : <=0.8. The reference r katie was not used to int erpret this result as normal/abnormal . [place] 824581-07-21 09:22:00 Test Item Value Reference Range Interpretation Comments Eosinophils # (test code 0.2 See_Comment [A utomated message] The = Eosinophils #) system whic h generated this result tra nsmitted reference range : <=0.5. The reference r katie was not used to int erpret this result as normal/abnormal . [facility] HospitalJvfxszcMAPIRXISXH5842-65-67 09:22:00 Test Item Value Reference Range Interpretation Comments Basophils # (test code 0.1 See_Comment [Aut omated message] The = Basophils #) system which generated this result tra nsmitted reference range : <=0.2. The reference r katie was not used to int erpret this result as normal/abnormal . [facility]2021-07-21 09:22:00 Test Item Value Reference Range Interpretation Comments Ca Ion WB (test code = Ca Ion WB) 1.06 1.05-1.25 [place] 959111-07-21 09:22:00 Test Item Value Reference Range Interpretation Comments Ca Norm WB (test code = Ca Norm WB) 1.06 1.05-1.25 [place] 918531-07-21 09:22:00 Test Item Value Reference Range Interpretation Comments Glucose Lvl (test code = Glucose Lvl) 93 70-99 [place] 918531-07-21 09:22:00 Test Item Value Reference Range Interpretation Comments BUN (test code = BUN) 22 7-22 [place] 918531-07-21 09:22:00 Test Item Value Reference Range Interpretation Comments Creatinine Lvl (test code = Creatinine 0.70 0.50-1.40 Lvl) [place] 918531-07-21 09:22:00 Test Item Value Reference Range Interpretation Comments Sodium Lvl (test code = Sodium Lvl) 137 135-145 [place] 918531-07-21 09:22:00 Test Item Value Reference Range Interpretation Comments Potassium Lvl (test code = Potassium 4.0 3.5-5.1 Lvl) [place] 918531-07-21 09:22:00 Test Item Value Reference Range Interpretation Comments Chloride Lvl (test code = Chloride Lvl) 106 95-109 [facility] HospitalImpact[facility]ecnologias [id number] 09:22:00 Test Item Value Reference Range Interpretation Comments CO2 (test code = CO2) 26 24-32 [place] 918531-07-21 09:22:00 Test Item Value Reference Range Interpretation Comments AGAP (test code = AGAP) 9.0 10.0-20.0 [place] [address]-07-21 09:22:00 Test Item Value Reference Range Interpretation Comments Calcium Lvl (test code = Calcium Lvl) 8.0 8.5-10.5 [place] 918531-07-21 09:22:00 Test Item Value Reference Range Interpretation Comments eGFR (test code = eGFR) 89 [place] 918531-07-21 09:22:00 Test Item Value Reference Range Interpretation Comments Magnesium Lvl (test code = Magnesium 2.2 1.8-2.4 Lvl) [place] 918531-07-21 09:22:00 Test Item Value Reference Range Interpretation Comments Phosphorus (test code = Phosphorus) 3.3 2.5-4.5 [place] 824581-07-21 09:22:00 Test Item Value Reference Range Interpretation Comments PTT (test code = PTT) 31.9 s 22.9-35.8 [place] [address]-07-21 09:22:00 Test Item Value Reference Range Interpretation Comments PT (test code = PT) 14.0 s 12.0-14.7 [place] [address]-07-21 09:22:00 Test Item Value Reference Range Interpretation Comments INR (test code = INR) 1.09 1 0.85-1.17 [place] 824581-07-21 09:22:00 Test Item Value Reference Range Interpretation Comments WBC X 10x3 (test code = WBC X 10x3) 7.2 3.7-10.4 [place] [address]-07-21 09:22:00 Test Item Value Reference Range Interpretation Comments RBC X 10x6 (test code = RBC X 10x6) 3.44 4.20-5.40 [place] [address]-07-21 09:22:00 Test Item Value Reference Range Interpretation Comments Hgb (test code = Hgb) 10.9 12.0-16.0 [place] [address]-07-21 09:22:00 Test Item Value Reference Range Interpretation Comments Hct (test code = Hct) 31.9 36.0-48.0 [place] 824581-07-21 09:22:00 Test Item Value Reference Range Interpretation Comments MCV (test code = MCV) 92.7 80.0-98.0 [place] 824581-07-21 09:22:00 Test Item Value Reference Range Interpretation Comments MCH (test code = MCH) 31.6 pg 27.0-31.0 [place] 824581-07-21 09:22:00 Test Item Value Reference Range Interpretation Comments MCHC (test code = MCHC) 34.1 32.0-36.0 [place] 824581-07-21 09:22:00 Test Item Value Reference Range Interpretation Comments RDW (test code = RDW) 12.9 11.5-14.5 [place] 824581-07-21 09:22:00 Test Item Value Reference Range Interpretation Comments Platelet (test code = Platelet) 220 133-450 [place] 824581-07-21 09:22:00 Test Item Value Reference Range Interpretation Comments MPV (test code = MPV) 8.1 7.4-10.4 [place] 824581-07-21 09:22:00 Test Item Value Reference Range Interpretation Comments Segs (test code = Segs) 76.8 45.0-75.0 [place] 824581-07-21 09:22:00 Test Item Value Reference Range Interpretation Comments Lymphocytes (test code = Lymphocytes) 13.4 20.0-40.0 [place] 824581-07-21 09:22:00 Test Item Value Reference Range Interpretation Comments Monocytes (test code = Monocytes) 5.8 2.0-12.0 [place] 824581-07-21 09:22:00 Test Item Value Reference Range Interpretation Comments Eosinophils (test code = 3.2 See_Comment [A utomated message] The Eosinophils) system which ge nerated this result tra nsmitted reference range : <=4.0. The reference r katie was not used to int erpret this result as normal/abnormal . [place] 824581-07-21 09:22:00 Test Item Value Reference Range Interpretation Comments Basophils (test code = 0.8 See_Comment [Aut omated message] The Basophils) system which ge nerated this result tra nsmitted reference range : <=1.0. The reference r katie was not used to int erpret this result as normal/abnormal . [place] 824581-07-21 09:22:00 Test Item Value Reference Range Interpretation Comments Neutrophils # (test code = Neutrophils 5.6 1.5-8.1 #) [facility] HospitalPlmwvzxTXRWBWFMGV7921-44-18 09:22:00 Test Item Value Reference Range Interpretation Comments Lymphocytes # (test code = Lymphocytes 1.0 1.0-5.5 #) [place] 824581-07-21 09:22:00 Test Item Value Reference Range Interpretation Comments Monocytes # (test code 0.4 See_Comment [Aut omated message] The = Monocytes #) system which generated this result tra nsmitted reference range : <=0.8. The reference r katie was not used to int erpret this result as normal/abnormal . [place] 824581-07-21 09:22:00 Test Item Value Reference Range Interpretation Comments Eosinophils # (test code 0.2 See_Comment [A utomated message] The = Eosinophils #) system whic h generated this result tra nsmitted reference range : <=0.5. The reference r katie was not used to int erpret this result as normal/abnormal . [facility]JdtkoccGJLSDDHMEL1420-27-95 09:22:00 Test Item Value Reference Range Interpretation Comments Basophils # (test code 0.1 See_Comment [Aut omated message] The = Basophils #) system which generated this result tra nsmitted reference range : <=0.2. The reference r katie was not used to int erpret this result as normal/abnormal . [facility]2021-07-21 09:22:00 Test Item Value Reference Range Interpretation Comments Ca Ion WB (test code = Ca Ion WB) 1.06 1.05-1.25 [place] 959111-07-21 09:22:00 Test Item Value Reference Range Interpretation Comments Ca Norm WB (test code = Ca Norm WB) 1.06 1.05-1.25 [place] 918531-07-21 09:22:00 Test Item Value Reference Range Interpretation Comments Glucose Lvl (test code = Glucose Lvl) 93 70-99 [facility]2021-07-21 09:22:00 Test Item Value Reference Range Interpretation Comments BUN (test code = BUN) 22 7-22 [place] 918531-07-21 09:22:00 Test Item Value Reference Range Interpretation Comments Creatinine Lvl (test code = Creatinine 0.70 0.50-1.40 Lvl) [place] 918531-07-21 09:22:00 Test Item Value Reference Range Interpretation Comments Sodium Lvl (test code = Sodium Lvl) 137 135-145 [place] 918531-07-21 09:22:00 Test Item Value Reference Range Interpretation Comments Potassium Lvl (test code = Potassium 4.0 3.5-5.1 Lvl) [place] 918531-07-21 09:22:00 Test Item Value Reference Range Interpretation Comments Chloride Lvl (test code = Chloride Lvl) 106 95-109 [place] 918531-07-21 09:22:00 Test Item Value Reference Range Interpretation Comments CO2 (test code = CO2) 26 24-32 [place] 918531-07-21 09:22:00 Test Item Value Reference Range Interpretation Comments AGAP (test code = AGAP) 9.0 10.0-20.0 [place] 918531-07-21 09:22:00 Test Item Value Reference Range Interpretation Comments Calcium Lvl (test code = Calcium Lvl) 8.0 8.5-10.5 [place] 918531-07-21 09:22:00 Test Item Value Reference Range Interpretation Comments eGFR (test code = eGFR) 89 [place] 918531-07-21 09:22:00 Test Item Value Reference Range Interpretation Comments Magnesium Lvl (test code = Magnesium 2.2 1.8-2.4 Lvl) [place] 918531-07-21 09:22:00 Test Item Value Reference Range Interpretation Comments Phosphorus (test code = Phosphorus) 3.3 2.5-4.5 [place] 824581-07-21 09:22:00 Test Item Value Reference Range Interpretation Comments PTT (test code = PTT) 31.9 s 22.9-35.8 [place] 824581-07-21 09:22:00 Test Item Value Reference Range Interpretation Comments PT (test code = PT) 14.0 s 12.0-14.7 [facility]KvdnsgpQRLNACIFBC8080-10-94 09:22:00 Test Item Value Reference Range Interpretation Comments INR (test code = INR) 1.09 1 0.85-1.17 [facility] HospitalVlexbyxHXGNHZHZLT8640-38-60 09:22:00 Test Item Value Reference Range Interpretation Comments WBC X 10x3 (test code = WBC X 10x3) 7.2 3.7-10.4 [facility] HospitalRpwtbzcJISBUCVYDS1490-13-79 09:22:00 Test Item Value Reference Range Interpretation Comments RBC X 10x6 (test code = RBC X 10x6) 3.44 4.20-5.40 [facility] HospitalUfafzmeQZKSGHYEVW3129-93-66 09:22:00 Test Item Value Reference Range Interpretation Comments Hgb (test code = Hgb) 10.9 12.0-16.0 [facility] HospitalPlgwevrISXDSBFKSR0132-53-65 09:22:00 Test Item Value Reference Range Interpretation Comments Hct (test code = Hct) 31.9 36.0-48.0 [facility] HospitalTrouhphQPVCXUSSBX4549-87-75 09:22:00 Test Item Value Reference Range Interpretation Comments MCV (test code = MCV) 92.7 80.0-98.0 [facility] HospitalNkaspezSGNSWNLVBH8743-57-37 09:22:00 Test Item Value Reference Range Interpretation Comments MCH (test code = MCH) 31.6 pg 27.0-31.0 [facility] HospitalCvejkslTGCUSHPIYC7661-32-23 09:22:00 Test Item Value Reference Range Interpretation Comments MCHC (test code = MCHC) 34.1 32.0-36.0 [facility] HospitalGalytkhVDHMKYZXCR1707-35-41 09:22:00 Test Item Value Reference Range Interpretation Comments RDW (test code = RDW) 12.9 11.5-14.5 [facility] HospitalGnaxtdyBFVBEXVWHR5184-74-35 09:22:00 Test Item Value Reference Range Interpretation Comments Platelet (test code = Platelet) 220 133-450 [facility] HospitalLixlzrfVDQADXCSRG0346-29-57 09:22:00 Test Item Value Reference Range Interpretation Comments MPV (test code = MPV) 8.1 7.4-10.4 [facility] HospitalLeebmcmCRMJESEXSD3231-90-39 09:22:00 Test Item Value Reference Range Interpretation Comments Segs (test code = Segs) 76.8 45.0-75.0 [place] 824581-07-21 09:22:00 Test Item Value Reference Range Interpretation Comments Lymphocytes (test code = Lymphocytes) 13.4 20.0-40.0 [place] 824581-07-21 09:22:00 Test Item Value Reference Range Interpretation Comments Monocytes (test code = Monocytes) 5.8 2.0-12.0 [facility] HospitalUawwjwcTJVQVOVSRA2396-06-54 09:22:00 Test Item Value Reference Range Interpretation Comments Eosinophils (test code = 3.2 See_Comment [A utomated message] The Eosinophils) system which ge nerated this result tra nsmitted reference range : <=4.0. The reference r katie was not used to int erpret this result as normal/abnormal . [place] 824581-07-21 09:22:00 Test Item Value Reference Range Interpretation Comments Basophils (test code = 0.8 See_Comment [Aut omated message] The Basophils) system which ge nerated this result tra nsmitted reference range : <=1.0. The reference r katie was not used to int erpret this result as normal/abnormal . [facility] HospitalIugibydQJKMUXWNLG8996-89-52 09:22:00 Test Item Value Reference Range Interpretation Comments Neutrophils # (test code = Neutrophils 5.6 1.5-8.1 #) [facility] HospitalPujvfevDJXEFZMQZS7192-16-12 09:22:00 Test Item Value Reference Range Interpretation Comments Lymphocytes # (test code = Lymphocytes 1.0 1.0-5.5 #) [place] 824581-07-21 09:22:00 Test Item Value Reference Range Interpretation Comments Monocytes # (test code 0.4 See_Comment [Aut omated message] The = Monocytes #) system which generated this result tra nsmitted reference range : <=0.8. The reference r katie was not used to int erpret this result as normal/abnormal . [place] 824581-07-21 09:22:00 Test Item Value Reference Range Interpretation Comments Eosinophils # (test code 0.2 See_Comment [A utomated message] The = Eosinophils #) system whic h generated this result tra nsmitted reference range : <=0.5. The reference r katie was not used to int erpret this result as normal/abnormal . [place] 824581-07-21 09:22:00 Test Item Value Reference Range Interpretation Comments Basophils # (test code 0.1 See_Comment [Aut omated message] The = Basophils #) system which generated this result tra nsmitted reference range : <=0.2. The reference r katie was not used to int erpret this result as normal/abnormal . [facility]2021-07-21 09:22:00 Test Item Value Reference Range Interpretation Comments Ca Ion WB (test code = Ca Ion WB) 1.06 1.05-1.25 [facility] UIHLZTM9701[facility]78-48 09:22:00 Test Item Value Reference Range Interpretation Comments Ca Norm WB (test code = Ca Norm WB) 1.06 1.05-1.25 [facility]2021-07-20 16:03:00 Test Item Value Reference Range Interpretation Comments Glucose Lvl (test code = Glucose Lvl) 112 70-99 [facility]2021-07-20 16:03:00 Test Item Value Reference Range Interpretation Comments BUN (test code = BUN) 39 7-22 [facility]2021-07-20 16:03:00 Test Item Value Reference Range Interpretation Comments Creatinine Lvl (test code = Creatinine 1.00 0.50-1.40 Lvl) [facility]2021-07-20 16:03:00 Test Item Value Reference Range Interpretation Comments Sodium Lvl (test code = Sodium Lvl) 139 135-145 [facility]2021-07-20 16:03:00 Test Item Value Reference Range Interpretation Comments Potassium Lvl (test code = Potassium 4.1 3.5-5.1 Lvl) [facility]2021-07-20 16:03:00 Test Item Value Reference Range Interpretation Comments Chloride Lvl (test code = Chloride Lvl) 109 95-109 [place] 918531-07-20 16:03:00 Test Item Value Reference Range Interpretation Comments CO2 (test code = CO2) 26 24-32 [facility]2021-07-20 16:03:00 Test Item Value Reference Range Interpretation Comments Calcium Lvl (test code = Calcium Lvl) 8.2 8.5-10.5 [facility]2021-07-20 16:03:00 Test Item Value Reference Range Interpretation Comments AGAP (test code = AGAP) 8.1 10.0-20.0 [facility]2021-07-20 16:03:00 Test Item Value Reference Range Interpretation Comments eGFR (test code = eGFR) 58 [facility]2021-07-20 16:03:00 Test Item Value Reference Range Interpretation Comments Magnesium Lvl (test code = Magnesium 2.1 1.8-2.4 Lvl) [facility]2021-07-20 16:03:00 Test Item Value Reference Range Interpretation Comments Phosphorus (test code = Phosphorus) 3.8 2.5-4.5 [facility] HospitalZjsysofVMJDEIHBCG1441-34-85 16:03:00 Test Item Value Reference Range Interpretation Comments WBC X 10x3 (test code = WBC X 10x3) 6.7 3.7-10.4 [place] 824581-07-20 16:03:00 Test Item Value Reference Range Interpretation Comments RBC X 10x6 (test code = RBC X 10x6) 3.06 4.20-5.40 [facility] HospitalKorhmewXYQHOZKSYN2208-93-27 16:03:00 Test Item Value Reference Range Interpretation Comments Hgb (test code = Hgb) 9.6 12.0-16.0 [facility] HospitalHjxibqlWEUMLJRKGY8864-80-78 16:03:00 Test Item Value Reference Range Interpretation Comments Hct (test code = Hct) 29.1 36.0-48.0 [place] 824581-07-20 16:03:00 Test Item Value Reference Range Interpretation Comments MCV (test code = MCV) 95.2 80.0-98.0 [place] 824581-07-20 16:03:00 Test Item Value Reference Range Interpretation Comments MCH (test code = MCH) 31.3 pg 27.0-31.0 [place] 824581-07-20 16:03:00 Test Item Value Reference Range Interpretation Comments MCHC (test code = MCHC) 32.9 32.0-36.0 [facility] HospitalKktidwzAQLEOXMGRW1835-73-02 16:03:00 Test Item Value Reference Range Interpretation Comments RDW (test code = RDW) 12.4 11.5-14.5 [place] 824581-07-20 16:03:00 Test Item Value Reference Range Interpretation Comments Platelet (test code = Platelet) 182 133-450 [facility] HospitalXtuccosALZKLMKHRB5163-28-96 16:03:00 Test Item Value Reference Range Interpretation Comments MPV (test code = MPV) 7.6 7.4-10.4 [facility] HospitalGmdymrpANOQKZDLZS3487-55-99 16:03:00 Test Item Value Reference Range Interpretation Comments PT (test code = PT) 13.2 s 12.0-14.7 [facility] HospitalGjrrqwiWETCAJFBNN8804-47-11 16:03:00 Test Item Value Reference Range Interpretation Comments INR (test code = INR) 1.01 1 0.85-1.17 [facility] HospitalDfmtugeICKRJGZINR7297-85-54 16:03:00 Test Item Value Reference Range Interpretation Comments PTT (test code = PTT) 36.4 s 22.9-35.8 [facility] HospitalGeduaupLAQVHSYEWJ3224-75-27 16:03:00 Test Item Value Reference Range Interpretation Comments Segs (test code = Segs) 55.4 45.0-75.0 [facility] HospitalBbsswkuHFIEICVLCR8098-61-65 16:03:00 Test Item Value Reference Range Interpretation Comments Lymphocytes (test code = Lymphocytes) 33.2 20.0-40.0 [facility] HospitalZajqaqkIGKBCMOANJ7181-48-00 16:03:00 Test Item Value Reference Range Interpretation Comments Monocytes (test code = Monocytes) 3.6 2.0-12.0 [facility] HospitalAioibmaJWCRTZHJJO2653-86-81 16:03:00 Test Item Value Reference Range Interpretation Comments Eosinophils (test code = 6.3 See_Comment [A utomated message] The Eosinophils) system which ge nerated this result tra nsmitted reference range : <=4.0. The reference r katie was not used to int erpret this result as normal/abnormal . [facility] HospitalVelquyyNAFEHPLFDO2760-67-04 16:03:00 Test Item Value Reference Range Interpretation Comments Basophils (test code = 1.5 See_Comment [Aut omated message] The Basophils) system which ge nerated this result tra nsmitted reference range : <=1.0. The reference r katie was not used to int erpret this result as normal/abnormal . [facility] HospitalPqtojfvSQMMKIOYFC6413-59-24 16:03:00 Test Item Value Reference Range Interpretation Comments Neutrophils # (test code = Neutrophils 3.7 1.5-8.1 #) [facility] HospitalBzhpuznAJIDVGXLUA9170-25-78 16:03:00 Test Item Value Reference Range Interpretation Comments Lymphocytes # (test code = Lymphocytes 2.2 1.0-5.5 #) [facility] HospitalRpnrbiwWENIODPTFR3118-39-16 16:03:00 Test Item Value Reference Range Interpretation Comments Monocytes # (test code 0.2 See_Comment [Aut omated message] The = Monocytes #) system which generated this result tra nsmitted reference range : <=0.8. The reference r katie was not used to int erpret this result as normal/abnormal . [facility] HospitalCnquqylURAGUGNYPZ2643-90-57 16:03:00 Test Item Value Reference Range Interpretation Comments Eosinophils # (test code 0.4 See_Comment [A utomated message] The = Eosinophils #) system whic h generated this result tra nsmitted reference range : <=0.5. The reference r katie was not used to int erpret this result as normal/abnormal . [facility] HospitalUzuddgpYLPXDRINAA7188-71-34 16:03:00 Test Item Value Reference Range Interpretation Comments Basophils # (test code 0.1 See_Comment [Aut omated message] The = Basophils #) system which generated this result tra nsmitted reference range : <=0.2. The reference r katie was not used to int erpret this result as normal/abnormal . [facility] HospitalMtajfavUNZRPA7462-62-13 16:03:00 Test Item Value Reference Range Interpretation Comments Trig (test code = Trig) 64 [facility] HospitalVobalxhMAAECC0747-23-35 16:03:00 Test Item Value Reference Range Interpretation Comments Chol (test code = Chol) 135 [facility] HospitalTbravyeXBHFSN3896-82-10 16:03:00 Test Item Value Reference Range Interpretation Comments HDL (test code = HDL) 33 [facility] HospitalPltxuqqPXXHHI2817-23-04 16:03:00 Test Item Value Reference Range Interpretation Comments CHD Risk (test code = CHD Risk) 4.09 1 3.90-5.80 [facility] HospitalUfeczfrKJNCSF9594-77-80 16:03:00 Test Item Value Reference Range Interpretation Comments LDL (Calculated) (test code = LDL 89 (Calculated)) [facility] HospitalPnhfamwNZTARQ5700-48-36 16:03:00 Test Item Value Reference Range Interpretation Comments VLDL (test code = VLDL) 13 [facility] 16:03:00 Test Item Value Reference Range Interpretation Comments Ca Ion WB (test code = Ca Ion WB) 1.13 1.05-1.25 [facility] ZKBDQLN4113-26-70 16:03:00 Test Item Value Reference Range Interpretation Comments Ca Norm WB (test code = Ca Norm WB) 1.10 1.05-1.25 [place] 918531-07-20 16:03:00 Test Item Value Reference Range Interpretation Comments Glucose Lvl (test code = Glucose Lvl) 112 70-99 [facility]2021-07-20 16:03:00 Test Item Value Reference Range Interpretation Comments BUN (test code = BUN) 39 7-22 [facility]2021-07-20 16:03:00 Test Item Value Reference Range Interpretation Comments Creatinine Lvl (test code = Creatinine 1.00 0.50-1.40 Lvl) [facility]2021-07-20 16:03:00 Test Item Value Reference Range Interpretation Comments Sodium Lvl (test code = Sodium Lvl) 139 135-145 [facility]2021-07-20 16:03:00 Test Item Value Reference Range Interpretation Comments Potassium Lvl (test code = Potassium 4.1 3.5-5.1 Lvl) [facility]2021-07-20 16:03:00 Test Item Value Reference Range Interpretation Comments Chloride Lvl (test code = Chloride Lvl) 109 95-109 [facility]2021-07-20 16:03:00 Test Item Value Reference Range Interpretation Comments CO2 (test code = CO2) 26 24-32 [facility]2021-07-20 16:03:00 Test Item Value Reference Range Interpretation Comments Calcium Lvl (test code = Calcium Lvl) 8.2 8.5-10.5 [facility]2021-07-20 16:03:00 Test Item Value Reference Range Interpretation Comments AGAP (test code = AGAP) 8.1 10.0-20.0 [place] 918531-07-20 16:03:00 Test Item Value Reference Range Interpretation Comments eGFR (test code = eGFR) 58 [facility]2021-07-20 16:03:00 Test Item Value Reference Range Interpretation Comments Magnesium Lvl (test code = Magnesium 2.1 1.8-2.4 Lvl) [facility]2021-07-20 16:03:00 Test Item Value Reference Range Interpretation Comments Phosphorus (test code = Phosphorus) 3.8 2.5-4.5 [facility] HospitalZchljraTMUSNDYQDZ2876-93-21 16:03:00 Test Item Value Reference Range Interpretation Comments WBC X 10x3 (test code = WBC X 10x3) 6.7 3.7-10.4 [facility] HospitalWgglmgdRXYMAECGAU6838-44-60 16:03:00 Test Item Value Reference Range Interpretation Comments RBC X 10x6 (test code = RBC X 10x6) 3.06 4.20-5.40 [facility] HospitalAvjodqgWHDEUMMXVO8895-94-04 16:03:00 Test Item Value Reference Range Interpretation Comments Hgb (test code = Hgb) 9.6 12.0-16.0 [facility] HospitalHfwrqepRGDRXWZGJH5374-10-69 16:03:00 Test Item Value Reference Range Interpretation Comments Hct (test code = Hct) 29.1 36.0-48.0 [facility] HospitalAysdgqoOWFLJVBDHE5936-72-27 16:03:00 Test Item Value Reference Range Interpretation Comments MCV (test code = MCV) 95.2 80.0-98.0 [facility] HospitalTzhrejyWPQCXLJZYE8538-92-80 16:03:00 Test Item Value Reference Range Interpretation Comments MCH (test code = MCH) 31.3 pg 27.0-31.0 [facility] HospitalPruddctATOXDIPDJL0118-39-32 16:03:00 Test Item Value Reference Range Interpretation Comments MCHC (test code = MCHC) 32.9 32.0-36.0 [facility] HospitalQsnupkuCCWHQGNWAZ0174-62-99 16:03:00 Test Item Value Reference Range Interpretation Comments RDW (test code = RDW) 12.4 11.5-14.5 [facility] HospitalPljqodbVWOEPQNRPU3232-79-55 16:03:00 Test Item Value Reference Range Interpretation Comments Platelet (test code = Platelet) 182 133-450 [facility] HospitalNicednrZOKGYEXYRU5432-41-55 16:03:00 Test Item Value Reference Range Interpretation Comments MPV (test code = MPV) 7.6 7.4-10.4 [facility] HospitalLeqfcdaAPBXXGDQMR4712-53-66 16:03:00 Test Item Value Reference Range Interpretation Comments PT (test code = PT) 13.2 s 12.0-14.7 [facility] HospitalZuvuvfyMCWNDTEGHB2829-49-03 16:03:00 Test Item Value Reference Range Interpretation Comments INR (test code = INR) 1.01 1 0.85-1.17 [facility] HospitalIekcexuYMHYPBIJAV6930-59-39 16:03:00 Test Item Value Reference Range Interpretation Comments PTT (test code = PTT) 36.4 s 22.9-35.8 [facility] HospitalNwivypvREFVVBZTKE7191-06-65 16:03:00 Test Item Value Reference Range Interpretation Comments Segs (test code = Segs) 55.4 45.0-75.0 [facility] HospitalNdwlvxfJBMHMQZBAY6648-67-21 16:03:00 Test Item Value Reference Range Interpretation Comments Lymphocytes (test code = Lymphocytes) 33.2 20.0-40.0 [facility] HospitalQtilggyVHMFPFTNHO4430-79-07 16:03:00 Test Item Value Reference Range Interpretation Comments Monocytes (test code = Monocytes) 3.6 2.0-12.0 [facility] HospitalAlhkudcGCBEQZMSAB2103-62-40 16:03:00 Test Item Value Reference Range Interpretation Comments Eosinophils (test code = 6.3 See_Comment [A utomated message] The Eosinophils) system which ge nerated this result tra nsmitted reference range : <=4.0. The reference r katie was not used to int erpret this result as normal/abnormal . [facility] HospitalSzdobsjOCJVQLGXMP4806-71-71 16:03:00 Test Item Value Reference Range Interpretation Comments Basophils (test code = 1.5 See_Comment [Aut omated message] The Basophils) system which ge nerated this result tra nsmitted reference range : <=1.0. The reference r katie was not used to int erpret this result as normal/abnormal . [facility] HospitalWlvsxlhNJQOSJHPVK3531-80-59 16:03:00 Test Item Value Reference Range Interpretation Comments Neutrophils # (test code = Neutrophils 3.7 1.5-8.1 #) [facility] HospitalLefkwpeRFTSTMMNOU9422-33-37 16:03:00 Test Item Value Reference Range Interpretation Comments Lymphocytes # (test code = Lymphocytes 2.2 1.0-5.5 #) [facility] HospitalRpsbawnPAJQNFYUUK4717-09-81 16:03:00 Test Item Value Reference Range Interpretation Comments Monocytes # (test code 0.2 See_Comment [Aut omated message] The = Monocytes #) system which generated this result tra nsmitted reference range : <=0.8. The reference r katie was not used to int erpret this result as normal/abnormal . [facility] HospitalSjlpjylIVYSJCPEWY0441-41-17 16:03:00 Test Item Value Reference Range Interpretation Comments Eosinophils # (test code 0.4 See_Comment [A utomated message] The = Eosinophils #) system whic h generated this result tra nsmitted reference range : <=0.5. The reference r katie was not used to int erpret this result as normal/abnormal . [facility] HospitalPtafzbeFBDLLKKCVW3850-77-55 16:03:00 Test Item Value Reference Range Interpretation Comments Basophils # (test code 0.1 See_Comment [Aut omated message] The = Basophils #) system which generated this result tra nsmitted reference range : <=0.2. The reference r katie was not used to int erpret this result as normal/abnormal . [facility] HospitalGtfobbzLDOAEB3012-10-45 16:03:00 Test Item Value Reference Range Interpretation Comments Trig (test code = Trig) 64 [facility] HospitalZfsaofvRPAARC5442-04-16 16:03:00 Test Item Value Reference Range Interpretation Comments Chol (test code = Chol) 135 [facility] HospitalHpxibvlJKUAGH3422-59-26 16:03:00 Test Item Value Reference Range Interpretation Comments HDL (test code = HDL) 33 [facility] HospitalUcepyakCXSMAK7278-92-32 16:03:00 Test Item Value Reference Range Interpretation Comments CHD Risk (test code = CHD Risk) 4.09 1 3.90-5.80 [facility] HospitalPvbhkunYNOBKW4385-52-34 16:03:00 Test Item Value Reference Range Interpretation Comments LDL (Calculated) (test code = LDL 89 (Calculated)) [facility] HospitalPrmzayqCCPVEP7503-81-19 16:03:00 Test Item Value Reference Range Interpretation Comments VLDL (test code = VLDL) 13 1 [facility]PAR[facility] CLSRZRS4589-36-04 16:03:00 Test Item Value Reference Range Interpretation Comments Ca Ion WB (test code = Ca Ion WB) 1.13 1.05-1.25 [facility]PAR[facility]YROID LGPKHXQ9798-32-34 16:03:00 Test Item Value Reference Range Interpretation Comments Ca Norm WB (test code = Ca Norm WB) 1.10 1.05-1.25 [facility]2021-07-20 16:03:00 Test Item Value Reference Range Interpretation Comments Glucose Lvl (test code = Glucose Lvl) 112 70-99 [facility]2021-07-20 16:03:00 Test Item Value Reference Range Interpretation Comments BUN (test code = BUN) 39 7-22 [facility]2021-07-20 16:03:00 Test Item Value Reference Range Interpretation Comments Creatinine Lvl (test code = Creatinine 1.00 0.50-1.40 Lvl) [facility]2021-07-20 16:03:00 Test Item Value Reference Range Interpretation Comments Sodium Lvl (test code = Sodium Lvl) 139 135-145 [facility]2021-07-20 16:03:00 Test Item Value Reference Range Interpretation Comments Potassium Lvl (test code = Potassium 4.1 3.5-5.1 Lvl) [facility]2021-07-20 16:03:00 Test Item Value Reference Range Interpretation Comments Chloride Lvl (test code = Chloride Lvl) 109 95-109 [facility]2021-07-20 16:03:00 Test Item Value Reference Range Interpretation Comments CO2 (test code = CO2) 26 24-32 [facility]2021-07-20 16:03:00 Test Item Value Reference Range Interpretation Comments Calcium Lvl (test code = Calcium Lvl) 8.2 8.5-10.5 [facility]2021-07-20 16:03:00 Test Item Value Reference Range Interpretation Comments AGAP (test code = AGAP) 8.1 10.0-20.0 [facility]2021-07-20 16:03:00 Test Item Value Reference Range Interpretation Comments eGFR (test code = eGFR) 58 [facility]2021-07-20 16:03:00 Test Item Value Reference Range Interpretation Comments Magnesium Lvl (test code = Magnesium 2.1 1.8-2.4 Lvl) [facility]2021-07-20 16:03:00 Test Item Value Reference Range Interpretation Comments Phosphorus (test code = Phosphorus) 3.8 2.5-4.5 [facility]GST[facility]UV2074[facility] 16:03:00 Test Item Value Reference Range Interpretation Comments WBC X 10x3 (test code = WBC X 10x3) 6.7 3.7-10.4 [facility]JvhyyznMTDJCJBNMM2835-66-17 16:03:00 Test Item Value Reference Range Interpretation Comments RBC X 10x6 (test code = RBC X 10x6) 3.06 4.20-5.40 [facility] HospitalJvnjwbhWZPNGEXIKQ5791-17-17 16:03:00 Test Item Value Reference Range Interpretation Comments Hgb (test code = Hgb) 9.6 12.0-16.0 [facility] HospitalKhtnobbGDUCJTEBNY6537-74-32 16:03:00 Test Item Value Reference Range Interpretation Comments Hct (test code = Hct) 29.1 36.0-48.0 [facility] HospitalSseuqzhHRHBVJJLQC9150-20-96 16:03:00 Test Item Value Reference Range Interpretation Comments MCV (test code = MCV) 95.2 80.0-98.0 [facility] HospitalPixdbzcDQIJFIZKLB3197-38-12 16:03:00 Test Item Value Reference Range Interpretation Comments MCH (test code = MCH) 31.3 pg 27.0-31.0 [facility] HospitalUwmobhmUYPNLOCCZQ4394-07-08 16:03:00 Test Item Value Reference Range Interpretation Comments MCHC (test code = MCHC) 32.9 32.0-36.0 [facility] HospitalEsuyozyZHLTKHMWPN7370-31-49 16:03:00 Test Item Value Reference Range Interpretation Comments RDW (test code = RDW) 12.4 11.5-14.5 [facility] HospitalGubwexuFENFCFUMZO2846-13-05 16:03:00 Test Item Value Reference Range Interpretation Comments Platelet (test code = Platelet) 182 133-450 [facility] HospitalAzgoewiARSYSSSSJE5776-73-38 16:03:00 Test Item Value Reference Range Interpretation Comments MPV (test code = MPV) 7.6 7.4-10.4 [facility] HospitalUjvhvobLHCNJMPVKN9188-46-68 16:03:00 Test Item Value Reference Range Interpretation Comments PT (test code = PT) 13.2 s 12.0-14.7 [facility] HospitalIdmlmfvHAVJXXNZOM4939-95-11 16:03:00 Test Item Value Reference Range Interpretation Comments INR (test code = INR) 1.01 1 0.85-1.17 [facility] HospitalCvtcmatGUIVZMBHJE2097-26-11 16:03:00 Test Item Value Reference Range Interpretation Comments PTT (test code = PTT) 36.4 s 22.9-35.8 [facility] HospitalVhyqfxrFVYGKBGOWY4964-47-04 16:03:00 Test Item Value Reference Range Interpretation Comments Segs (test code = Segs) 55.4 45.0-75.0 [facility] HospitalZhvhvjfOMYLMBBIBH9230-33-02 16:03:00 Test Item Value Reference Range Interpretation Comments Lymphocytes (test code = Lymphocytes) 33.2 20.0-40.0 [facility] HospitalLypxazaCZDHYZETGQ6275-37-83 16:03:00 Test Item Value Reference Range Interpretation Comments Monocytes (test code = Monocytes) 3.6 2.0-12.0 [facility] HospitalHbnjgclXQCRKPLCUW9430-35-94 16:03:00 Test Item Value Reference Range Interpretation Comments Eosinophils (test code = 6.3 See_Comment [A utomated message] The Eosinophils) system which ge nerated this result tra nsmitted reference range : <=4.0. The reference r katie was not used to int erpret this result as normal/abnormal . [facility] HospitalCzqtyccACQVAZAPXZ4600-82-85 16:03:00 Test Item Value Reference Range Interpretation Comments Basophils (test code = 1.5 See_Comment [Aut omated message] The Basophils) system which ge nerated this result tra nsmitted reference range : <=1.0. The reference r katie was not used to int erpret this result as normal/abnormal . [facility] HospitalCdmzbkkXYSYCPVAZR0845-85-93 16:03:00 Test Item Value Reference Range Interpretation Comments Neutrophils # (test code = Neutrophils 3.7 1.5-8.1 #) [facility] HospitalCpijpdgZEOXTVOAVE9042-92-21 16:03:00 Test Item Value Reference Range Interpretation Comments Lymphocytes # (test code = Lymphocytes 2.2 1.0-5.5 #) [facility] HospitalFgrynaiJZMTCSNGTP8259-27-22 16:03:00 Test Item Value Reference Range Interpretation Comments Monocytes # (test code 0.2 See_Comment [Aut omated message] The = Monocytes #) system which generated this result tra nsmitted reference range : <=0.8. The reference r katie was not used to int erpret this result as normal/abnormal . [place] 824581-07-20 16:03:00 Test Item Value Reference Range Interpretation Comments Eosinophils # (test code 0.4 See_Comment [A utomated message] The = Eosinophils #) system whic h generated this result tra nsmitted reference range : <=0.5. The reference r katie was not used to int erpret this result as normal/abnormal . [facility]JrwbpkfYZBJEOFVWS3496-01-03 16:03:00 Test Item Value Reference Range Interpretation Comments Basophils # (test code 0.1 See_Comment [Aut omated message] The = Basophils #) system which generated this result tra nsmitted reference range : <=0.2. The reference r katie was not used to int erpret this result as normal/abnormal . [facility]TlybtuyXZZYDL8427-62-79 16:03:00 Test Item Value Reference Range Interpretation Comments Trig (test code = Trig) 64 [facility] ArlingtonYyxjxuxKVIBAX3563-14-35 16:03:00 Test Item Value Reference Range Interpretation Comments Chol (test code = Chol) 135 [facility] ArlingtonAulplheCAMYWX8620-56-71 16:03:00 Test Item Value Reference Range Interpretation Comments HDL (test code = HDL) 33 [facility] ArlingtonSdowhjlFKRTNC6545-97-17 16:03:00 Test Item Value Reference Range Interpretation Comments CHD Risk (test code = CHD Risk) 4.09 1 3.90-5.80 [facility] ArlingtonUhsmpcxVAEQMM7783-26-86 16:03:00 Test Item Value Reference Range Interpretation Comments LDL (Calculated) (test code = LDL 89 (Calculated)) [facility] ArlingtonDaorzzrFEPGZZ7119-08-13 16:03:00 Test Item Value Reference Range Interpretation Comments VLDL (test code = VLDL) 13 1 [facility] ArlingtonannPARATHYROID FPNQAMK7148-23-29 16:03:00 Test Item Value Reference Range Interpretation Comments Ca Ion WB (test code = Ca Ion WB) 1.13 1.05-1.[address] [facility] ScaliannPARATHYROID KRENFCP3596-74-54 16:03:00 Test Item Value Reference Range Interpretation Comments Ca Norm WB (test code = Ca Norm WB) 1.10 1.05-1.[address] [facility] [place] VPQUR7657-02-03 16:03:00 Test Item Value Reference Range Interpretation Comments Glucose Lvl (test code = Glucose Lvl) 112 70-[address] [facility] [place] UCVMH4530-83-72 16:03:00 Test Item Value Reference Range Interpretation Comments BUN (test code = BUN) 39 7-22 [place] 918531-07-20 16:03:00 Test Item Value Reference Range Interpretation Comments Creatinine Lvl (test code = Creatinine 1.00 0.50-1.40 Lvl) [place] 918531-07-20 16:03:00 Test Item Value Reference Range Interpretation Comments Sodium Lvl (test code = Sodium Lvl) 139 135-145 [place] 918531-07-20 16:03:00 Test Item Value Reference Range Interpretation Comments Potassium Lvl (test code = Potassium 4.1 3.5-5.1 Lvl) [facility]2021-07-20 16:03:00 Test Item Value Reference Range Interpretation Comments Chloride Lvl (test code = Chloride Lvl) 109 95-109 [facility]2021-07-20 16:03:00 Test Item Value Reference Range Interpretation Comments CO2 (test code = CO2) 26 24-32 [facility]2021-07-20 16:03:00 Test Item Value Reference Range Interpretation Comments Calcium Lvl (test code = Calcium Lvl) 8.2 8.5-10.5 [facility]2021-07-20 16:03:00 Test Item Value Reference Range Interpretation Comments AGAP (test code = AGAP) 8.1 10.0-20.0 [facility]2021-07-20 16:03:00 Test Item Value Reference Range Interpretation Comments eGFR (test code = eGFR) 58 [facility]2021-07-20 16:03:00 Test Item Value Reference Range Interpretation Comments Magnesium Lvl (test code = Magnesium 2.1 1.8-2.4 Lvl) [facility]2021-07-20 16:03:00 Test Item Value Reference Range Interpretation Comments Phosphorus (test code = Phosphorus) 3.8 2.5-4.5 [facility] HospitalNejthghSCCJPFTELU7515-31-23 16:03:00 Test Item Value Reference Range Interpretation Comments WBC X 10x3 (test code = WBC X 10x3) 6.7 3.7-10.4 [place] 824581-07-20 16:03:00 Test Item Value Reference Range Interpretation Comments RBC X 10x6 (test code = RBC X 10x6) 3.06 4.20-5.40 [place] 824581-07-20 16:03:00 Test Item Value Reference Range Interpretation Comments Hgb (test code = Hgb) 9.6 12.0-16.0 [facility] HospitalHcuhbzuQEWOTONBCY0325-60-72 16:03:00 Test Item Value Reference Range Interpretation Comments Hct (test code = Hct) 29.1 36.0-48.0 [facility] HospitalAnotfdeVPJCXATRIE1450-88-05 16:03:00 Test Item Value Reference Range Interpretation Comments MCV (test code = MCV) 95.2 80.0-98.0 [facility] HospitalFpydmkxLBAHSRSRWS1334-68-89 16:03:00 Test Item Value Reference Range Interpretation Comments MCH (test code = MCH) 31.3 pg 27.0-31.0 [facility] HospitalUilimugFMLQXENLBY0500-60-89 16:03:00 Test Item Value Reference Range Interpretation Comments MCHC (test code = MCHC) 32.9 32.0-36.0 [facility] HospitalXxfzydmEQOPAWBTDQ9135-03-35 16:03:00 Test Item Value Reference Range Interpretation Comments RDW (test code = RDW) 12.4 11.5-14.5 [facility] HospitalDstnxmxLZREFKWIEW6068-74-16 16:03:00 Test Item Value Reference Range Interpretation Comments Platelet (test code = Platelet) 182 133-450 [facility] HospitalZqdmwnxQUQNOUECBR2066-94-75 16:03:00 Test Item Value Reference Range Interpretation Comments MPV (test code = MPV) 7.6 7.4-10.4 [facility] HospitalXzrjfgbFXYYXMKFZF0414-90-48 16:03:00 Test Item Value Reference Range Interpretation Comments PT (test code = PT) 13.2 s 12.0-14.7 [facility] HospitalDjhmqefADZJZSLGCW5255-12-98 16:03:00 Test Item Value Reference Range Interpretation Comments INR (test code = INR) 1.01 1 0.85-1.17 [facility] HospitalQwyltfyTANRFDDQTH6633-76-44 16:03:00 Test Item Value Reference Range Interpretation Comments PTT (test code = PTT) 36.4 s 22.9-35.8 [facility] HospitalHktafvwVWJVLLSFTP8301-04-60 16:03:00 Test Item Value Reference Range Interpretation Comments Segs (test code = Segs) 55.4 45.0-75.0 [facility] HospitalNszdqxzJJDIQAPXGJ4689-77-39 16:03:00 Test Item Value Reference Range Interpretation Comments Lymphocytes (test code = Lymphocytes) 33.2 20.0-40.0 [facility] HospitalMirjhpzRMNUDPRIFG7599-45-76 16:03:00 Test Item Value Reference Range Interpretation Comments Monocytes (test code = Monocytes) 3.6 2.0-12.0 [place] 824581-07-20 16:03:00 Test Item Value Reference Range Interpretation Comments Eosinophils (test code = 6.3 See_Comment [A utomated message] The Eosinophils) system which ge nerated this result tra nsmitted reference range : <=4.0. The reference r katie was not used to int erpret this result as normal/abnormal . [facility] HospitalApeeyjxKVQPROLBAT5661-96-69 16:03:00 Test Item Value Reference Range Interpretation Comments Basophils (test code = 1.5 See_Comment [Aut omated message] The Basophils) system which ge nerated this result tra nsmitted reference range : <=1.0. The reference r katie was not used to int erpret this result as normal/abnormal . [facility] HospitalZorgyvuAQOUATNFOI0482-51-02 16:03:00 Test Item Value Reference Range Interpretation Comments Neutrophils # (test code = Neutrophils 3.7 1.5-8.1 #) [facility] HospitalIjoptmpDQZTCJZBLF1344-14-33 16:03:00 Test Item Value Reference Range Interpretation Comments Lymphocytes # (test code = Lymphocytes 2.2 1.0-5.5 #) [facility] HospitalHtsjheoUGPRNDASVC1547-20-91 16:03:00 Test Item Value Reference Range Interpretation Comments Monocytes # (test code 0.2 See_Comment [Aut omated message] The = Monocytes #) system which generated this result tra nsmitted reference range : <=0.8. The reference r katie was not used to int erpret this result as normal/abnormal . [facility] HospitalSqvklgkIGYGOAHURW0543-78-17 16:03:00 Test Item Value Reference Range Interpretation Comments Eosinophils # (test code 0.4 See_Comment [A utomated message] The = Eosinophils #) system whic h generated this result tra nsmitted reference range : <=0.5. The reference r katie was not used to int erpret this result as normal/abnormal . [facility] HospitalIxvcbakBYCXHSYVNI4174-12-61 16:03:00 Test Item Value Reference Range Interpretation Comments Basophils # (test code 0.1 See_Comment [Aut omated message] The = Basophils #) system which generated this result tra nsmitted reference range : <=0.2. The reference r katie was not used to int erpret this result as normal/abnormal . [facility] ArlingtonOzmtxcnZUWSIP4753-19-31 16:03:00 Test Item Value Reference Range Interpretation Comments Trig (test code = Trig) 64 [facility] ArlingtonOcmmwqjKMBRQW2595-46-73 16:03:00 Test Item Value Reference Range Interpretation Comments Chol (test code = Chol) 135 [facility] ArlingtonIyjjijhZZEBRF7146-77-78 16:03:00 Test Item Value Reference Range Interpretation Comments HDL (test code = HDL) 33 [facility] ArlingtonMmydrudOGIVQR4822-71-24 16:03:00 Test Item Value Reference Range Interpretation Comments CHD Risk (test code = CHD Risk) 4.09 1 3.90-5.80 [facility] ArlingtonLvrrfeoYBOKMM4131-37-68 16:03:00 Test Item Value Reference Range Interpretation Comments LDL (Calculated) (test code = LDL 89 (Calculated)) [facility] ArlingtonTwsnovvZAKQDD2787-06-75 16:03:00 Test Item Value Reference Range Interpretation Comments VLDL (test code = VLDL) [address] [facility] momondoPARATHYROID TAYBWFL7068-71-23 16:03:00 Test Item Value Reference Range Interpretation Comments Ca Ion WB (test code = Ca Ion WB) 1.13 1.05-1.[address] [facility] DietBetterATHYROID OOJFBQB3483-94-25 16:03:00 Test Item Value Reference Range Interpretation Comments Ca Norm WB (test code = Ca Norm WB) 1.10 1.05-1.[address] [facility] [place] PYJXZ0661-69-24 16:03:00 Test Item Value Reference Range Interpretation Comments Glucose Lvl (test code = Glucose Lvl) 112 70-[address] [facility] [place] OYQMN1675-34-92 16:03:00 Test Item Value Reference Range Interpretation Comments BUN (test code = BUN) 39 7-[address] [facility] [place] ALQVO0635-57-16 16:03:00 Test Item Value Reference Range Interpretation Comments Creatinine Lvl (test code = Creatinine 1.00 0.50-1.40 Lvl) [facility] [place] VPRLZ8583-25-33 16:03:00 Test Item Value Reference Range Interpretation Comments Sodium Lvl (test code = Sodium Lvl) 139 135-145 [place] 918531-07-20 16:03:00 Test Item Value Reference Range Interpretation Comments Potassium Lvl (test code = Potassium 4.1 3.5-5.1 Lvl) [place] 918531-07-20 16:03:00 Test Item Value Reference Range Interpretation Comments Chloride Lvl (test code = Chloride Lvl) 109 95-109 [place] 918531-07-20 16:03:00 Test Item Value Reference Range Interpretation Comments CO2 (test code = CO2) 26 24-32 [place] 918531-07-20 16:03:00 Test Item Value Reference Range Interpretation Comments Calcium Lvl (test code = Calcium Lvl) 8.2 8.5-10.5 [place] 918531-07-20 16:03:00 Test Item Value Reference Range Interpretation Comments AGAP (test code = AGAP) 8.1 10.0-20.0 [place] 918531-07-20 16:03:00 Test Item Value Reference Range Interpretation Comments eGFR (test code = eGFR) 58 [facility]2021-07-20 16:03:00 Test Item Value Reference Range Interpretation Comments Magnesium Lvl (test code = Magnesium 2.1 1.8-2.4 Lvl) [facility]2021-07-20 16:03:00 Test Item Value Reference Range Interpretation Comments Phosphorus (test code = Phosphorus) 3.8 2.5-4.5 [facility] HospitalFzngrxgPAKSELVKJQ9884-07-62 16:03:00 Test Item Value Reference Range Interpretation Comments WBC X 10x3 (test code = WBC X 10x3) 6.7 3.7-10.4 [place] 824581-07-20 16:03:00 Test Item Value Reference Range Interpretation Comments RBC X 10x6 (test code = RBC X 10x6) 3.06 4.20-5.40 [place] 824581-07-20 16:03:00 Test Item Value Reference Range Interpretation Comments Hgb (test code = Hgb) 9.6 12.0-16.0 [place] 824581-07-20 16:03:00 Test Item Value Reference Range Interpretation Comments Hct (test code = Hct) 29.1 36.0-48.0 [place] 824581-07-20 16:03:00 Test Item Value Reference Range Interpretation Comments MCV (test code = MCV) 95.2 80.0-98.0 [facility] HospitalWyluugmBHDVGKGTFZ6286-92-49 16:03:00 Test Item Value Reference Range Interpretation Comments MCH (test code = MCH) 31.3 pg 27.0-31.0 [facility] HospitalIignwprXGUYKPUKUD7953-60-90 16:03:00 Test Item Value Reference Range Interpretation Comments MCHC (test code = MCHC) 32.9 32.0-36.0 [facility] HospitalKtipbcwDXPYLOJSPE3500-38-45 16:03:00 Test Item Value Reference Range Interpretation Comments RDW (test code = RDW) 12.4 11.5-14.5 [facility] HospitalHhyfombOXBRSPOTHO6284-19-37 16:03:00 Test Item Value Reference Range Interpretation Comments Platelet (test code = Platelet) 182 133-450 [facility] HospitalJimearwFDJIDBKWWA8387-49-49 16:03:00 Test Item Value Reference Range Interpretation Comments MPV (test code = MPV) 7.6 7.4-10.4 [facility] HospitalCenhulsNERZTGZONL2511-20-70 16:03:00 Test Item Value Reference Range Interpretation Comments PT (test code = PT) 13.2 s 12.0-14.7 [facility] HospitalZtaiuxgQXIWRMSVXW8896-50-99 16:03:00 Test Item Value Reference Range Interpretation Comments INR (test code = INR) 1.01 1 0.85-1.17 [facility] HospitalRjmjsliOMEYUDLBQF3403-85-29 16:03:00 Test Item Value Reference Range Interpretation Comments PTT (test code = PTT) 36.4 s 22.9-35.8 [facility] HospitalYkajpjkAJFWDDLQIX4197-40-84 16:03:00 Test Item Value Reference Range Interpretation Comments Segs (test code = Segs) 55.4 45.0-75.0 [facility] HospitalXpbrnttITSLDINMET4644-85-25 16:03:00 Test Item Value Reference Range Interpretation Comments Lymphocytes (test code = Lymphocytes) 33.2 20.0-40.0 [facility] HospitalQkmulnrGZPNACFHSE2093-03-77 16:03:00 Test Item Value Reference Range Interpretation Comments Monocytes (test code = Monocytes) 3.6 2.0-12.0 [facility] HospitalUoorfyaOJROKRNGHG9149-13-92 16:03:00 Test Item Value Reference Range Interpretation Comments Eosinophils (test code = 6.3 See_Comment [A utomated message] The Eosinophils) system which ge nerated this result tra nsmitted reference range : <=4.0. The reference r katie was not used to int erpret this result as normal/abnormal . [facility] HospitalBvatygtIEVLZGVNFI4755-25-36 16:03:00 Test Item Value Reference Range Interpretation Comments Basophils (test code = 1.5 See_Comment [Aut omated message] The Basophils) system which ge nerated this result tra nsmitted reference range : <=1.0. The reference r katie was not used to int erpret this result as normal/abnormal . [facility] HospitalVdmpohrDLVYWBODNY9642-78-99 16:03:00 Test Item Value Reference Range Interpretation Comments Neutrophils # (test code = Neutrophils 3.7 1.5-8.1 #) [facility] HospitalKigqvsmDAWXSBSRYC2554-81-69 16:03:00 Test Item Value Reference Range Interpretation Comments Lymphocytes # (test code = Lymphocytes 2.2 1.0-5.5 #) [facility] HospitalWtqnowsUCFJBPXNJB0146-40-67 16:03:00 Test Item Value Reference Range Interpretation Comments Monocytes # (test code 0.2 See_Comment [Aut omated message] The = Monocytes #) system which generated this result tra nsmitted reference range : <=0.8. The reference r katie was not used to int erpret this result as normal/abnormal . [facility] HospitalYoaytceHBIHHKVMWM9457-24-39 16:03:00 Test Item Value Reference Range Interpretation Comments Eosinophils # (test code 0.4 See_Comment [A utomated message] The = Eosinophils #) system whic h generated this result tra nsmitted reference range : <=0.5. The reference r katie was not used to int erpret this result as normal/abnormal . [facility] HospitalXycjeriNUUNGOBUMX3367-31-67 16:03:00 Test Item Value Reference Range Interpretation Comments Basophils # (test code 0.1 See_Comment [Aut omated message] The = Basophils #) system which generated this result tra nsmitted reference range : <=0.2. The reference r katie was not used to int erpret this result as normal/abnormal . [facility] SystemBrjrphkBTTYUC8575-36-39 16:03:00 Test Item Value Reference Range Interpretation Comments Trig (test code = Trig) 64 [facility] HospitalCarvdgmCUTXOY6940-51-66 16:03:00 Test Item Value Reference Range Interpretation Comments Chol (test code = Chol) 135 [facility] HospitalOyspqkgKJKYUZ7324-79-14 16:03:00 Test Item Value Reference Range Interpretation Comments HDL (test code = HDL) 33 [facility] HospitalTojpnvbOUIWUE5323-42-53 16:03:00 Test Item Value Reference Range Interpretation Comments CHD Risk (test code = CHD Risk) 4.09 1 3.90-5.80 [facility] HospitalMgequpqHVVVZM2271-18-13 16:03:00 Test Item Value Reference Range Interpretation Comments LDL (Calculated) (test code = LDL 89 (Calculated)) [facility] SystemWaioyigYUVBOX0719-55-09 16:03:00 Test Item Value Reference Range Interpretation Comments VLDL (test code = VLDL) 13 1 [facility] HospitalATHYROID [id number] 16:03:00 Test Item Value Reference Range Interpretation Comments Ca Ion WB (test code = Ca Ion WB) 1.13 1.05-1.25 [facility] [id number] 16:03:00 Test Item Value Reference Range Interpretation Comments Ca Norm WB (test code = Ca Norm WB) 1.10 1.05-1.25 [facility]2021-07-20 16:03:00 Test Item Value Reference Range Interpretation Comments Glucose Lvl (test code = Glucose Lvl) 112 70-99 [facility]2021-07-20 16:03:00 Test Item Value Reference Range Interpretation Comments BUN (test code = BUN) 39 7-22 [facility]2021-07-20 16:03:00 Test Item Value Reference Range Interpretation Comments Creatinine Lvl (test code = Creatinine 1.00 0.50-1.40 Lvl) [facility]2021-07-20 16:03:00 Test Item Value Reference Range Interpretation Comments Sodium Lvl (test code = Sodium Lvl) 139 135-145 [facility]2021-07-20 16:03:00 Test Item Value Reference Range Interpretation Comments Potassium Lvl (test code = Potassium 4.1 3.5-5.1 Lvl) [facility]2021-07-20 16:03:00 Test Item Value Reference Range Interpretation Comments Chloride Lvl (test code = Chloride Lvl) 109 95-109 [place] [id number] 16:03:00 Test Item Value Reference Range Interpretation Comments CO2 (test code = CO2) 26 24-32 [place] [id number] 16:03:00 Test Item Value Reference Range Interpretation Comments Calcium Lvl (test code = Calcium Lvl) 8.2 8.5-10.5 [place] 918531-07-20 16:03:00 Test Item Value Reference Range Interpretation Comments AGAP (test code = AGAP) 8.1 10.0-20.0 [place] [id number] 16:03:00 Test Item Value Reference Range Interpretation Comments eGFR (test code = eGFR) 58 [facility]2021-07-20 16:03:00 Test Item Value Reference Range Interpretation Comments Magnesium Lvl (test code = Magnesium 2.1 1.8-2.4 Lvl) [facility]2021-07-20 16:03:00 Test Item Value Reference Range Interpretation Comments Phosphorus (test code = Phosphorus) 3.8 2.5-4.5 [place] 824581-07-20 16:03:00 Test Item Value Reference Range Interpretation Comments WBC X 10x3 (test code = WBC X 10x3) 6.7 3.7-10.4 [facility]PaqfjucDOVHQGWNTR3430-07-92 16:03:00 Test Item Value Reference Range Interpretation Comments RBC X 10x6 (test code = RBC X 10x6) 3.06 4.20-5.40 [facility] HospitalQecyucdZMRRBFSNYT0709-36-13 16:03:00 Test Item Value Reference Range Interpretation Comments Hgb (test code = Hgb) 9.6 12.0-16.0 [place] 824581-07-20 16:03:00 Test Item Value Reference Range Interpretation Comments Hct (test code = Hct) 29.1 36.0-48.0 [place] 824581-07-20 16:03:00 Test Item Value Reference Range Interpretation Comments MCV (test code = MCV) 95.2 80.0-98.0 [place] 824581-07-20 16:03:00 Test Item Value Reference Range Interpretation Comments MCH (test code = MCH) 31.3 pg 27.0-31.0 [place] 824581-07-20 16:03:00 Test Item Value Reference Range Interpretation Comments MCHC (test code = MCHC) 32.9 32.0-36.0 [facility] HospitalMgybpnkAHWBXLJWHT4610-61-96 16:03:00 Test Item Value Reference Range Interpretation Comments RDW (test code = RDW) 12.4 11.5-14.5 [facility] HospitalJ[id number] 16:03:00 Test Item Value Reference Range Interpretation Comments Platelet (test code = Platelet) 182 133-450 [facility] HospitalHogzhuiKVAONLGQBU5783-45-63 16:03:00 Test Item Value Reference Range Interpretation Comments MPV (test code = MPV) 7.6 7.4-10.4 [place] 824581-07-20 16:03:00 Test Item Value Reference Range Interpretation Comments PT (test code = PT) 13.2 s 12.0-14.7 [facility] HospitalGqpmolrEFZTZVIKKZ7386-49-33 16:03:00 Test Item Value Reference Range Interpretation Comments INR (test code = INR) 1.01 1 0.85-1.17 [facility] HospitalArwigbbVOWEIZKGPY7555-74-81 16:03:00 Test Item Value Reference Range Interpretation Comments PTT (test code = PTT) 36.4 s 22.9-35.8 [facility] HospitalPdwfowwIJHQDULTPV8826-48-70 16:03:00 Test Item Value Reference Range Interpretation Comments Segs (test code = Segs) 55.4 45.0-75.0 [facility] HospitalDapuqmyWHLDOIOHCC2929-54-84 16:03:00 Test Item Value Reference Range Interpretation Comments Lymphocytes (test code = Lymphocytes) 33.2 20.0-40.0 [facility] HospitalTfyshfmLRNNGQDTQF5389-96-81 16:03:00 Test Item Value Reference Range Interpretation Comments Monocytes (test code = Monocytes) 3.6 2.0-12.0 [place] 824581-07-20 16:03:00 Test Item Value Reference Range Interpretation Comments Eosinophils (test code = 6.3 See_Comment [A utomated message] The Eosinophils) system which ge nerated this result tra nsmitted reference range : <=4.0. The reference r katie was not used to int erpret this result as normal/abnormal . [facility] HospitalNqxpnmiHDPDSXWRME6226-90-29 16:03:00 Test Item Value Reference Range Interpretation Comments Basophils (test code = 1.5 See_Comment [Aut omated message] The Basophils) system which ge nerated this result tra nsmitted reference range : <=1.0. The reference r katie was not used to int erpret this result as normal/abnormal . [facility] HospitalKdsrpzxXEQDAHGZHM2760-91-90 16:03:00 Test Item Value Reference Range Interpretation Comments Neutrophils # (test code = Neutrophils 3.7 1.5-8.1 #) [facility] HospitalSlcdjzpKNGHZGHCEF9250-30-87 16:03:00 Test Item Value Reference Range Interpretation Comments Lymphocytes # (test code = Lymphocytes 2.2 1.0-5.5 #) [facility] HospitalMgmqdkrGYOPRLDUYQ6127-28-76 16:03:00 Test Item Value Reference Range Interpretation Comments Monocytes # (test code 0.2 See_Comment [Aut omated message] The = Monocytes #) system which generated this result tra nsmitted reference range : <=0.8. The reference r katie was not used to int erpret this result as normal/abnormal . [facility] HospitalQrrrrwoTNSQGOFGOB2827-48-46 16:03:00 Test Item Value Reference Range Interpretation Comments Eosinophils # (test code 0.4 See_Comment [A utomated message] The = Eosinophils #) system whic h generated this result tra nsmitted reference range : <=0.5. The reference r katie was not used to int erpret this result as normal/abnormal . [facility] Hospit[id number] 16:03:00 Test Item Value Reference Range Interpretation Comments Basophils # (test code 0.1 See_Comment [Aut omated message] The = Basophils #) system which generated this result tra nsmitted reference range : <=0.2. The reference r katie was not used to int erpret this result as normal/abnormal . [facility]xx[facility]AAFVMI[facility]253-39-[facility] 16:03:00 Test Item Value Reference Range Interpretation Comments Trig (test code = Trig) 64 [facility] SystemVbllsctXYQRWM4561-03-97 16:03:00 Test Item Value Reference Range Interpretation Comments Chol (test code = Chol) 135 [facility] SystemNgtwmjvQFVKVV3861-92-71 16:03:00 Test Item Value Reference Range Interpretation Comments HDL (test code = HDL) 33 [facility] SystemJnyqrvgASRZKR3606-98-79 16:03:00 Test Item Value Reference Range Interpretation Comments CHD Risk (test code = CHD Risk) 4.09 1 3.90-5.80 [facility] HospitalNryldzrGXLUIJ1685-97-46 16:03:00 Test Item Value Reference Range Interpretation Comments LDL (Calculated) (test code = LDL 89 (Calculated)) [facility] HospitalRbmltraZQCRDG9136-22-48 16:03:00 Test Item Value Reference Range Interpretation Comments VLDL (test code = VLDL) 13 1 [facility] [id number] 16:03:00 Test Item Value Reference Range Interpretation Comments Ca Ion WB (test code = Ca Ion WB) 1.13 1.05-1.25 [facility] [id number] 16:03:00 Test Item Value Reference Range Interpretation Comments Ca Norm WB (test code = Ca Norm WB) 1.10 1.05-1.25 [facility] HospitalReality JockeyKINDRED HEALTHCAREL [id number] 18:31:00 Test Item Value Reference Range Interpretation Comments MRSA by PCR (test Negative (01/08/21 1:31 code = MRSA by PCR) PM) [facility] [id number] 18:31:00 Test Item Value Reference Range Interpretation Comments ABO/Rh (test code = ABO/Rh) A POS [facility] [employer] [id number] 18:31:00 Test Item Value Reference Range Interpretation Comments Antibody Scrn (test Negative (01/08/21 1:31 code = Antibody Scrn) PM) [facility] HospitalReality JockeyKINDR[facility] HEALTHCAREL [id number] 18:31:00 Test Item Value Reference Range Interpretation Comments MRSA by PCR (test Negative (01/08/21 1:31 code = MRSA by PCR) PM) [facility] [id number] 18:31:00 Test Item Value Reference Range Interpretation Comments ABO/Rh (test code = ABO/Rh) A POS [facility] [employer] [id number] 18:31:00 Test Item Value Reference Range Interpretation Comments Antibody Scrn (test Negative (01/08/21 1:31 code = Antibody Scrn) PM) [facility] HospitalRe[facility] JockeyKINDR[facility]ALTHCAREL - [id number] 18:31:00 Test Item Value Reference Range Interpretation Comments MRSA by PCR (test Negative (01/08/21 1:31 code = MRSA by PCR) PM) [facility] [id number] 18:31:00 Test Item Value Reference Range Interpretation Comments ABO/Rh (test code = ABO/Rh) A POS [facility] [id number] 18:31:00 Test Item Value Reference Range Interpretation Comments Antibody Scrn (test Negative (01/08/21 1:31 code = Antibody Scrn) PM) [facility] [id number] 18:31:00 Test Item Value Reference Range Interpretation Comments MRSA by PCR (test Negative (01/08/21 1:31 code = MRSA by PCR) PM) [facility] [id number] 18:31:00 Test Item Value Reference Range Interpretation Comments ABO/Rh (test code = ABO/Rh) A POS [facility] [id number] 18:31:00 Test Item Value Reference Range Interpretation Comments Antibody Scrn (test Negative (01/08/21 1:31 code = Antibody Scrn) PM) [facility] [id number] 18:31:00 Test Item Value Reference Range Interpretation Comments MRSA by PCR (test Negative (01/08/21 1:31 code = MRSA by PCR) PM) [facility] [id number] 18:31:00 Test Item Value Reference Range Interpretation Comments ABO/Rh (test code = ABO/Rh) A POS [facility] [id number] 18:31:00 Test Item Value Reference Range Interpretation Comments Antibody Scrn (test Negative (01/08/21 1:31 code = Antibody Scrn) PM) [facility] [id number] 18:31:00 Test Item Value Reference Range Interpretation Comments MRSA by PCR (test Negative (01/08/21 1:31 code = MRSA by PCR) PM) [facility] [id number] 18:31:00 Test Item Value Reference Range Interpretation Comments ABO/Rh (test code = ABO/Rh) A POS [facility] [id number] 18:31:00 Test Item Value Reference Range Interpretation Comments Antibody Scrn (test Negative (01/08/21 1:31 code = Antibody Scrn) PM) [facility] BANK [id number] 18:19:00 Test Item Value Reference Range Interpretation Comments RBC product (test code Product available = RBC product) (01/08/21 1:19 PM) [facility]2021-07-15 18:19:00 Test Item Value Reference Range Interpretation Comments Glucose Lvl (test code = Glucose Lvl) 106 70-99 [facility]2021-07-15 18:19:00 Test Item Value Reference Range Interpretation Comments BUN (test code = BUN) 37 7-22 [facility]2021-07-15 18:19:00 Test Item Value Reference Range Interpretation Comments Creatinine Lvl (test code = Creatinine 1.00 0.50-1.40 Lvl) [facility]2021-07-15 18:19:00 Test Item Value Reference Range Interpretation Comments Sodium Lvl (test code = Sodium Lvl) 140 135-145 [facility]2021-07-15 18:19:00 Test Item Value Reference Range Interpretation Comments Potassium Lvl (test code = Potassium 4.4 3.5-5.1 Lvl) [facility]2021-07-15 18:19:00 Test Item Value Reference Range Interpretation Comments Chloride Lvl (test code = Chloride Lvl) 104 95-109 [facility]2021-07-15 18:19:00 Test Item Value Reference Range Interpretation Comments CO2 (test code = CO2) 32 24-32 [facility]2021-07-15 18:19:00 Test Item Value Reference Range Interpretation Comments Calcium Lvl (test code = Calcium Lvl) 10.8 8.5-10.5 [facility]2021-07-15 18:19:00 Test Item Value Reference Range Interpretation Comments AGAP (test code = AGAP) 8.4 10.0-20.0 [facility]2021-07-15 18:19:00 Test Item Value Reference Range Interpretation Comments eGFR (test code = eGFR) 58 [facility] HospitalERTAPENEM:SUSC:PT:ISOLATE:ORDQN:[id number] 18:19:00 Test Item Value Reference Range Interpretation Comments Culture: Urine (test >100,000 CFU/mL code = Culture: Escherichia coli <10,000 Urine) CFU/mL [facility]:PT:ISOLATE:ORDQN:[id number] 18:19:00 Test Item Value Reference Range Interpretation Comments Escherichia coli (test code Escherichia coli = Escherichia coli) [facility] HospitalAmbpgebUXOOQKRBNJ1749-47-53 18:19:00 Test Item Value Reference Range Interpretation Comments WBC X 10x3 (test code = WBC X 10x3) 8.2 3.7-10.4 [facility] HospitalOzqgaofDPRBAOMFUG6831-59-58 18:19:00 Test Item Value Reference Range Interpretation Comments RBC X 10x6 (test code = RBC X 10x6) 3.81 4.20-5.40 [facility] HospitalIkkikibYOTXIIUEXQ3137-35-12 18:19:00 Test Item Value Reference Range Interpretation Comments Hgb (test code = Hgb) 12.0 12.0-16.0 [facility] HospitalVecesajKJODYYUYQE1355-37-22 18:19:00 Test Item Value Reference Range Interpretation Comments Hct (test code = Hct) 36.2 36.0-48.0 [facility] Hospit[id number] 18:19:00 Test Item Value Reference Range Interpretation Comments MCV (test code = MCV) 95.2 80.0-98.0 [facility] Hospit[id number] 18:19:00 Test Item Value Reference Range Interpretation Comments MCH (test code = MCH) 31.5 pg 27.0-31.0 [facility] Hospit[id number] 18:19:00 Test Item Value Reference Range Interpretation Comments MCHC (test code = MCHC) 33.1 32.0-36.0 [facility] HospitalExpqbbtTQPFLAWJYP9369-35-95 18:19:00 Test Item Value Reference Range Interpretation Comments RDW (test code = RDW) 13.0 11.5-14.5 [facility] HospitalYosoefjNPUVERGXNR9871-94-91 18:19:00 Test Item Value Reference Range Interpretation Comments Platelet (test code = Platelet) 239 133-450 [facility] HospitalYvchumjKRPQGVJUAC3099-13-06 18:19:00 Test Item Value Reference Range Interpretation Comments MPV (test code = MPV) 7.8 7.4-10.4 [facility] HospitalLpjxqfyOHGAMCDEWB2449-87-04 18:19:00 Test Item Value Reference Range Interpretation Comments PT (test code = PT) 13.9 s 12.0-14.7 [facility] HospitalUippgokEQDGCMRTAS1064-96-35 18:19:00 Test Item Value Reference Range Interpretation Comments INR (test code = INR) 1.08 1 0.85-1.17 [facility] HospitalCqzrnwnEFMEGDGRJC2300-67-49 18:19:00 Test Item Value Reference Range Interpretation Comments PTT (test code = PTT) 29.2 s 22.9-35.8 [place] 824581-07-15 18:19:00 Test Item Value Reference Range Interpretation Comments Segs (test code = Segs) 63.1 45.0-75.0 [place] 824581-07-15 18:19:00 Test Item Value Reference Range Interpretation Comments Lymphocytes (test code = Lymphocytes) 23.0 20.0-40.0 [facility] HospitalIbwnrobBUXGOXKETO9023-22-31 18:19:00 Test Item Value Reference Range Interpretation Comments Monocytes (test code = Monocytes) 7.5 2.0-12.0 [facility] HospitalLpmzdlwQXLTXOGOMW1923-30-27 18:19:00 Test Item Value Reference Range Interpretation Comments Eosinophils (test code = 5.0 See_Comment [A utomated message] The Eosinophils) system which ge nerated this result tra nsmitted reference range : <=4.0. The reference r katie was not used to int erpret this result as normal/abnormal . [facility] HospitalVkpmfbzSVLWZFDCCF0117-24-29 18:19:00 Test Item Value Reference Range Interpretation Comments Basophils (test code = 1.4 See_Comment [Aut omated message] The Basophils) system which ge nerated this result tra nsmitted reference range : <=1.0. The reference r katie was not used to int erpret this result as normal/abnormal . [facility] HospitalPdardqaZUFHGOMBPN8401-47-31 18:19:00 Test Item Value Reference Range Interpretation Comments Neutrophils # (test code = Neutrophils 5.2 1.5-8.1 #) [place] 824581-07-15 18:19:00 Test Item Value Reference Range Interpretation Comments Lymphocytes # (test code = Lymphocytes 1.9 1.0-5.5 #) [facility] H[id number] 18:19:00 Test Item Value Reference Range Interpretation Comments Monocytes # (test code 0.6 See_Comment [Aut omated message] The = Monocytes #) system which generated this result tra nsmitted reference range : <=0.8. The reference r katie was not used to int erpret this result as normal/abnormal . [facility] HospitalXhdhxhfODFBOBVRPZ4902-29-23 18:19:00 Test Item Value Reference Range Interpretation Comments Eosinophils # (test code 0.4 See_Comment [A utomated message] The = Eosinophils #) system whic h generated this result tra nsmitted reference range : <=0.5. The reference r katie was not used to int erpret this result as normal/abnormal . [facility] HospitalUbkewbyQDZBTSZXKO9044-20-96 18:19:00 Test Item Value Reference Range Interpretation Comments Basophils # (test code 0.1 See_Comment [Aut omated message] The = Basophils #) system which generated this result tra nsmitted reference range : <=0.2. The reference r katie was not used to int erpret this result as normal/abnormal . [facility] AND [id number] 18:19:00 Test Item Value Reference Range Interpretation Comments UA Turbidity (test code Slight *ABN*(01/08/21 = UA Turbidity) 1:19 PM) [facility] AND [id number] 18:19:00 Test Item Value Reference Range Interpretation Comments UA Spec Grav (test code = UA Spec 1.019 1 Grav) [facility] AND [id number] 18:19:00 Test Item Value Reference Range Interpretation Comments UA pH (test code = UA pH) 5.0 1 5.0-8.0 [facility] AND [id number] 18:19:00 Test Item Value Reference Range Interpretation Comments UA Protein (test code = UA Negative mg/dL Protein) [facility] AND [id number] 18:19:00 Test Item Value Reference Range Interpretation Comments UA Glucose (test code = UA Negative mg/dL Glucose) [facility] AND [id number] 18:19:00 Test Item Value Reference Range Interpretation Comments UA Ketones (test code = UA Negative mg/dL Ketones) [facility] AND [id number] 18:19:00 Test Item Value Reference Range Interpretation Comments UA Bili (test code = Negative *NA*(01/08/21 UA Bili) 1:19 PM) [facility] [id number] 18:19:00 Test Item Value Reference Range Interpretation Comments UA Blood (test code = Negative (01/08/21 1:19 UA Blood) PM) [facility] [id number] 18:19:00 Test Item Value Reference Range Interpretation Comments UA Nitrite (test code Positive *ABN*(01/08/21 = UA Nitrite) 1:19 PM) [facility] [id number] 18:19:00 Test Item Value Reference Range Interpretation Comments UA Leuk Est (test code Large *ABN*(01/08/21 = UA Leuk Est) 1:19 PM) [facility] [id number] 18:19:00 Test Item Value Reference Range Interpretation Comments UA Sq Epi (test code = UA Sq Occasional /LPF Epi) [facility] [id number] 18:19:00 Test Item Value Reference Range Interpretation Comments UA WBC (test code = 47 See_Comment [Automa matteo message] The UA WBC) system which ge nerated this result transmit matteo reference range : <=5. The reference range was not used to interpr et this result as miesha l/abnormal. [facility] [id number] 18:19:00 Test Item Value Reference Range Interpretation Comments UA RBC (test code = 2 See_Comment [Automa matteo message] The UA RBC) system which ge nerated this result transmit matteo reference range : <=2. The reference range was not used to interpr et this result as miesha l/abnormal. [facility] [id number] 18:19:00 Test Item Value Reference Range Interpretation Comments UA Bacteria (test code = UA Moderate /HPF Bacteria) [facility] [id number] 18:19:00 Test Item Value Reference Range Interpretation Comments UA Mucus (test code = UA Mucus) Few /LPF [facility] [id number] 18:19:00 Test Item Value Reference Range Interpretation Comments UA Color (test code = UA Color) Yellow [facility] [id number] 18:19:00 Test Item Value Reference Range Interpretation Comments UA Urobilinogen (test code = UA no gt 0.1-1.0 Urobilinogen) [facility]ANK [id number] 18:19:00 Test Item Value Reference Range Interpretation Comments RBC product (test code Product available = RBC product) (01/08/21 1:19 PM) [facility]2021-07-15 18:19:00 Test Item Value Reference Range Interpretation Comments Glucose Lvl (test code = Glucose Lvl) 106 70-99 [facility]2021-07-15 18:19:00 Test Item Value Reference Range Interpretation Comments BUN (test code = BUN) 37 7-22 [facility]2021-07-15 18:19:00 Test Item Value Reference Range Interpretation Comments Creatinine Lvl (test code = Creatinine 1.00 0.50-1.40 Lvl) [facility]2021-07-15 18:19:00 Test Item Value Reference Range Interpretation Comments Sodium Lvl (test code = Sodium Lvl) 140 135-145 [facility]2021-07-15 18:19:00 Test Item Value Reference Range Interpretation Comments Potassium Lvl (test code = Potassium 4.4 3.5-5.1 Lvl) [facility]2021-07-15 18:19:00 Test Item Value Reference Range Interpretation Comments Chloride Lvl (test code = Chloride Lvl) 104 95-109 [facility]2021-07-15 18:19:00 Test Item Value Reference Range Interpretation Comments CO2 (test code = CO2) 32 24-32 [facility]2021-07-15 18:19:00 Test Item Value Reference Range Interpretation Comments Calcium Lvl (test code = Calcium Lvl) 10.8 8.5-10.5 [facility]2021-07-15 18:19:00 Test Item Value Reference Range Interpretation Comments AGAP (test code = AGAP) 8.4 10.0-20.0 [facility]2021-07-15 18:19:00 Test Item Value Reference Range Interpretation Comments eGFR (test code = eGFR) 58 [facility] HospitalMARSHAAPENEM:SUSC:PT:ISOLATE:ORDQN:[id number] 18:19:00 Test Item Value Reference Range Interpretation Comments Culture: Urine (test >100,000 CFU/mL code = Culture: Escherichia coli <10,000 Urine) CFU/mL Skin [facility]PT:ISOLATE:ORDQN:[id number] 18:19:00 Test Item Value Reference Range Interpretation Comments Escherichia coli (test code Escherichia coli = Escherichia coli) [facility] H[id number] 18:19:00 Test Item Value Reference Range Interpretation Comments WBC X 10x3 (test code = WBC X 10x3) 8.2 3.7-10.4 [facility] HospitalKvmndirHFYDTNNTKO9691-62-61 18:19:00 Test Item Value Reference Range Interpretation Comments RBC X 10x6 (test code = RBC X 10x6) 3.81 4.20-5.40 [facility] HospitalOcerggyDVNFQMGBBW5746-35-73 18:19:00 Test Item Value Reference Range Interpretation Comments Hgb (test code = Hgb) 12.0 12.0-16.0 [facility] HospitalZxnmzdbXCCYQORGQT7467-69-26 18:19:00 Test Item Value Reference Range Interpretation Comments Hct (test code = Hct) 36.2 36.0-48.0 [facility] Hospit[id number] 18:19:00 Test Item Value Reference Range Interpretation Comments MCV (test code = MCV) 95.2 80.0-98.0 [facility] HospitalGprfsvzFQRCWQWMRU7014-73-67 18:19:00 Test Item Value Reference Range Interpretation Comments MCH (test code = MCH) 31.5 pg 27.0-31.0 [facility] Hospit[id number] 18:19:00 Test Item Value Reference Range Interpretation Comments MCHC (test code = MCHC) 33.1 32.0-36.0 [facility] Hos[id number] 18:19:00 Test Item Value Reference Range Interpretation Comments RDW (test code = RDW) 13.0 11.5-14.5 [facility] Ho[id number] 18:19:00 Test Item Value Reference Range Interpretation Comments Platelet (test code = Platelet) 239 133-450 [facility] Hospit[id number] 18:19:00 Test Item Value Reference Range Interpretation Comments MPV (test code = MPV) 7.8 7.4-10.4 [facility] Hos[id number] 18:19:00 Test Item Value Reference Range Interpretation Comments PT (test code = PT) 13.9 s 12.0-14.7 [place] [id number] 18:19:00 Test Item Value Reference Range Interpretation Comments INR (test code = INR) 1.08 1 0.85-1.17 [place] [id number] 18:19:00 Test Item Value Reference Range Interpretation Comments PTT (test code = PTT) 29.2 s 22.9-35.8 [place] 824581-07-15 18:19:00 Test Item Value Reference Range Interpretation Comments Segs (test code = Segs) 63.1 45.0-75.0 [place] 824581-07-15 18:19:00 Test Item Value Reference Range Interpretation Comments Lymphocytes (test code = Lymphocytes) 23.0 20.0-40.0 [place] 824581-07-15 18:19:00 Test Item Value Reference Range Interpretation Comments Monocytes (test code = Monocytes) 7.5 2.0-12.0 [place] 824581-07-15 18:19:00 Test Item Value Reference Range Interpretation Comments Eosinophils (test code = 5.0 See_Comment [A utomated message] The Eosinophils) system which ge nerated this result tra nsmitted reference range : <=4.0. The reference r katie was not used to int erpret this result as normal/abnormal . [place] 824581-07-15 18:19:00 Test Item Value Reference Range Interpretation Comments Basophils (test code = 1.4 See_Comment [Aut omated message] The Basophils) system which ge nerated this result tra nsmitted reference range : <=1.0. The reference r katie was not used to int erpret this result as normal/abnormal . [place] 824581-07-15 18:19:00 Test Item Value Reference Range Interpretation Comments Neutrophils # (test code = Neutrophils 5.2 1.5-8.1 #) [place] 824581-07-15 18:19:00 Test Item Value Reference Range Interpretation Comments Lymphocytes # (test code = Lymphocytes 1.9 1.0-5.5 #) [place] 824581-07-15 18:19:00 Test Item Value Reference Range Interpretation Comments Monocytes # (test code 0.6 See_Comment [Aut omated message] The = Monocytes #) system which generated this result tra nsmitted reference range : <=0.8. The reference r katie was not used to int erpret this result as normal/abnormal . [facility] Hos[id number] 18:19:00 Test Item Value Reference Range Interpretation Comments Eosinophils # (test code 0.4 See_Comment [A utomated message] The = Eosinophils #) system whic h generated this result tra nsmitted reference range : <=0.5. The reference r katie was not used to int erpret this result as normal/abnormal . [facility] Hospit[id number] 18:19:00 Test Item Value Reference Range Interpretation Comments Basophils # (test code 0.1 See_Comment [Aut omated message] The = Basophils #) system which generated this result tra nsmitted reference range : <=0.2. The reference r katie was not used to int erpret this result as normal/abnormal . [facility] AND [id number] 18:19:00 Test Item Value Reference Range Interpretation Comments UA Turbidity (test code Slight *ABN*(01/08/21 = UA Turbidity) 1:19 PM) [facility] AND [id number] 18:19:00 Test Item Value Reference Range Interpretation Comments UA Spec Grav (test code = UA Spec 1.019 1 Grav) [facility] AND [id number] 18:19:00 Test Item Value Reference Range Interpretation Comments UA pH (test code = UA pH) 5.0 1 5.0-8.0 [facility] AND [id number] 18:19:00 Test Item Value Reference Range Interpretation Comments UA Protein (test code = UA Negative mg/dL Protein) [facility] AND [id number] 18:19:00 Test Item Value Reference Range Interpretation Comments UA Glucose (test code = UA Negative mg/dL Glucose) [facility] AND [id number] 18:19:00 Test Item Value Reference Range Interpretation Comments UA Ketones (test code = UA Negative mg/dL Ketones) [facility] AND [id number] 18:19:00 Test Item Value Reference Range Interpretation Comments UA Bili (test code = Negative *NA*(01/08/21 UA Bili) 1:19 PM) [facility] AND [id number] 18:19:00 Test Item Value Reference Range Interpretation Comments UA Blood (test code = Negative (01/08/21 1:19 UA Blood) PM) [facility] AND [id number] 18:19:00 Test Item Value Reference Range Interpretation Comments UA Nitrite (test code Positive *ABN*(01/08/21 = UA Nitrite) 1:19 PM) [facility] AND [id number] 18:19:00 Test Item Value Reference Range Interpretation Comments UA Leuk Est (test code Large *ABN*(01/08/21 = UA Leuk Est) 1:19 PM) [facility] AND [id number] 18:19:00 Test Item Value Reference Range Interpretation Comments UA Sq Epi (test code = UA Sq Occasional /LPF Epi) [facility] AND [id number] 18:19:00 Test Item Value Reference Range Interpretation Comments UA WBC (test code = 47 See_Comment [Automa matteo message] The UA WBC) system which ge nerated this result transmit matteo reference range : <=5. The reference range was not used to interpr et this result as miesha l/abnormal. [facility] AND [id number] 18:19:00 Test Item Value Reference Range Interpretation Comments UA RBC (test code = 2 See_Comment [Automa matteo message] The UA RBC) system which ge nerated this result transmit matteo reference range : <=2. The reference range was not used to interpr et this result as miesha l/abnormal. [facility] AND [id number] 18:19:00 Test Item Value Reference Range Interpretation Comments UA Bacteria (test code = UA Moderate /HPF Bacteria) [facility] AND [id number] 18:19:00 Test Item Value Reference Range Interpretation Comments UA Mucus (test code = UA Mucus) Few /LPF [facility] AND [id number] 18:19:00 Test Item Value Reference Range Interpretation Comments UA Color (test code = UA Color) Yellow [facility] AND [id number] 18:19:00 Test Item Value Reference Range Interpretation Comments UA Urobilinogen (test code = UA no gt 0.1-1.0 Urobilinogen) [facility] BANK [id number] 18:19:00 Test Item Value Reference Range Interpretation Comments RBC product (test code Product available = RBC product) (01/08/21 1:19 PM) [place] [id number] 18:19:00 Test Item Value Reference Range Interpretation Comments Glucose Lvl (test code = Glucose Lvl) 106 70-99 [place] [id number] 18:19:00 Test Item Value Reference Range Interpretation Comments BUN (test code = BUN) 37 7-22 [facility]2021-07-15 18:19:00 Test Item Value Reference Range Interpretation Comments Creatinine Lvl (test code = Creatinine 1.00 0.50-1.40 Lvl) [facility]2021-07-15 18:19:00 Test Item Value Reference Range Interpretation Comments Sodium Lvl (test code = Sodium Lvl) 140 135-145 [place] 918531-07-15 18:19:00 Test Item Value Reference Range Interpretation Comments Potassium Lvl (test code = Potassium 4.4 3.5-5.1 Lvl) [facility]2021-07-15 18:19:00 Test Item Value Reference Range Interpretation Comments Chloride Lvl (test code = Chloride Lvl) 104 95-109 [facility]2021-07-15 18:19:00 Test Item Value Reference Range Interpretation Comments CO2 (test code = CO2) 32 24-32 [facility]2021-07-15 18:19:00 Test Item Value Reference Range Interpretation Comments Calcium Lvl (test code = Calcium Lvl) 10.8 8.5-10.5 [facility]2021-07-15 18:19:00 Test Item Value Reference Range Interpretation Comments AGAP (test code = AGAP) 8.4 10.0-20.0 [facility]2021-07-15 18:19:00 Test Item Value Reference Range Interpretation Comments eGFR (test code = eGFR) 58 [facility]C:PT:ISOLATE:ORDQN:[id number] 18:19:00 Test Item Value Reference Range Interpretation Comments Culture: Urine (test >100,000 CFU/mL code = Culture: Escherichia coli <10,000 Urine) CFU/mL Skin Kimberly [facility]:SUSC:PT:ISOLATE:ORDQN:[id number] 18:19:00 Test Item Value Reference Range Interpretation Comments Escherichia coli (test code Escherichia coli = Escherichia coli) [facility] [id number] 18:19:00 Test Item Value Reference Range Interpretation Comments WBC X 10x3 (test code = WBC X 10x3) 8.2 3.7-10.4 [facility] Hos[id number] 18:19:00 Test Item Value Reference Range Interpretation Comments RBC X 10x6 (test code = RBC X 10x6) 3.81 4.20-5.40 [facility] Ho[id number] 18:19:00 Test Item Value Reference Range Interpretation Comments Hgb (test code = Hgb) 12.0 12.0-16.0 [facility] Hos[id number] 18:19:00 Test Item Value Reference Range Interpretation Comments Hct (test code = Hct) 36.2 36.0-48.0 [facility] Ho[id number] 18:19:00 Test Item Value Reference Range Interpretation Comments MCV (test code = MCV) 95.2 80.0-98.0 [facility] Hos[id number] 18:19:00 Test Item Value Reference Range Interpretation Comments MCH (test code = MCH) 31.5 pg 27.0-31.0 [facility] HospitalT[id number] 18:19:00 Test Item Value Reference Range Interpretation Comments MCHC (test code = MCHC) 33.1 32.0-36.0 [facility] H[id number] 18:19:00 Test Item Value Reference Range Interpretation Comments RDW (test code = RDW) 13.0 11.5-14.5 [facility] Hospit[id number] 18:19:00 Test Item Value Reference Range Interpretation Comments Platelet (test code = Platelet) 239 133-450 [facility] HospitalBrdelirTKVFFVHSJP5126-26-08 18:19:00 Test Item Value Reference Range Interpretation Comments MPV (test code = MPV) 7.8 7.4-10.4 [facility] H[id number] 18:19:00 Test Item Value Reference Range Interpretation Comments PT (test code = PT) 13.9 s 12.0-14.7 [facility] HospitalGlgqfzqZQXCIJUKXZ0720-15-32 18:19:00 Test Item Value Reference Range Interpretation Comments INR (test code = INR) 1.08 1 0.85-1.17 [facility] Hos[id number] 18:19:00 Test Item Value Reference Range Interpretation Comments PTT (test code = PTT) 29.2 s 22.9-35.8 [facility] HospitalSxezkffBEEUCSFUQT0686-41-17 18:19:00 Test Item Value Reference Range Interpretation Comments Segs (test code = Segs) 63.1 45.0-75.0 [facility] H[id number] 18:19:00 Test Item Value Reference Range Interpretation Comments Lymphocytes (test code = Lymphocytes) 23.0 20.0-40.0 [facility] HospitalOblmzyvYYEGDUZTZT9778-93-09 18:19:00 Test Item Value Reference Range Interpretation Comments Monocytes (test code = Monocytes) 7.5 2.0-12.0 [facility] Hospit[id number] 18:19:00 Test Item Value Reference Range Interpretation Comments Eosinophils (test code = 5.0 See_Comment [A utomated message] The Eosinophils) system which ge nerated this result tra nsmitted reference range : <=4.0. The reference r katie was not used to int erpret this result as normal/abnormal . [facility] HospitalXwnqxoxZOZWZSQTDJ5760-06-52 18:19:00 Test Item Value Reference Range Interpretation Comments Basophils (test code = 1.4 See_Comment [Aut omated message] The Basophils) system which ge nerated this result tra nsmitted reference range : <=1.0. The reference r katie was not used to int erpret this result as normal/abnormal . [facility] Ho[id number] 18:19:00 Test Item Value Reference Range Interpretation Comments Neutrophils # (test code = Neutrophils 5.2 1.5-8.1 #) [facility] Hospit[id number] 18:19:00 Test Item Value Reference Range Interpretation Comments Lymphocytes # (test code = Lymphocytes 1.9 1.0-5.5 #) [place] [id number] 18:19:00 Test Item Value Reference Range Interpretation Comments Monocytes # (test code 0.6 See_Comment [Aut omated message] The = Monocytes #) system which generated this result tra nsmitted reference range : <=0.8. The reference r katie was not used to int erpret this result as normal/abnormal . [facility] H[id number] 18:19:00 Test Item Value Reference Range Interpretation Comments Eosinophils # (test code 0.4 See_Comment [A utomated message] The = Eosinophils #) system whic h generated this result tra nsmitted reference range : <=0.5. The reference r katie was not used to int erpret this result as normal/abnormal . [facility] H[id number] 18:19:00 Test Item Value Reference Range Interpretation Comments Basophils # (test code 0.1 See_Comment [Aut omated message] The = Basophils #) system which generated this result tra nsmitted reference range : <=0.2. The reference r katie was not used to int erpret this result as normal/abnormal . [facility] AND [id number] 18:19:00 Test Item Value Reference Range Interpretation Comments UA Turbidity (test code Slight *ABN*(01/08/21 = UA Turbidity) 1:19 PM) [facility] AND [id number] 18:19:00 Test Item Value Reference Range Interpretation Comments UA Spec Grav (test code = UA Spec 1.019 1 Grav) [facility] AND [id number] 18:19:00 Test Item Value Reference Range Interpretation Comments UA pH (test code = UA pH) 5.0 1 5.0-8.0 [facility] AND [id number] 18:19:00 Test Item Value Reference Range Interpretation Comments UA Protein (test code = UA Negative mg/dL Protein) [facility] AND [id number] 18:19:00 Test Item Value Reference Range Interpretation Comments UA Glucose (test code = UA Negative mg/dL Glucose) [facility] AND [id number] 18:19:00 Test Item Value Reference Range Interpretation Comments UA Ketones (test code = UA Negative mg/dL Ketones) [facility] AND [id number] 18:19:00 Test Item Value Reference Range Interpretation Comments UA Bili (test code = Negative *NA*(01/08/21 UA Bili) 1:19 PM) [facility] AND [id number] 18:19:00 Test Item Value Reference Range Interpretation Comments UA Blood (test code = Negative (01/08/21 1:19 UA Blood) PM) [facility] [id number] 18:19:00 Test Item Value Reference Range Interpretation Comments UA Nitrite (test code Positive *ABN*(01/08/21 = UA Nitrite) 1:19 PM) [facility] [id number] 18:19:00 Test Item Value Reference Range Interpretation Comments UA Leuk Est (test code Large *ABN*(01/08/21 = UA Leuk Est) 1:19 PM) [facility] [id number] 18:19:00 Test Item Value Reference Range Interpretation Comments UA Sq Epi (test code = UA Sq Occasional /LPF Epi) [facility] AND [id number] 18:19:00 Test Item Value Reference Range Interpretation Comments UA WBC (test code = 47 See_Comment [Automa matteo message] The UA WBC) system which ge nerated this result transmit matteo reference range : <=5. The reference range was not used to interpr et this result as miesha l/abnormal. [facility] [id number] 18:19:00 Test Item Value Reference Range Interpretation Comments UA RBC (test code = 2 See_Comment [Automa matteo message] The UA RBC) system which ge nerated this result transmit matteo reference range : <=2. The reference range was not used to interpr et this result as miesha l/abnormal. [facility] [id number] 18:19:00 Test Item Value Reference Range Interpretation Comments UA Bacteria (test code = UA Moderate /HPF Bacteria) [facility] [id number] 18:19:00 Test Item Value Reference Range Interpretation Comments UA Mucus (test code = UA Mucus) Few /LPF [facility] [id number] 18:19:00 Test Item Value Reference Range Interpretation Comments UA Color (test code = UA Color) Yellow [facility] [id number] 18:19:00 Test Item Value Reference Range Interpretation Comments UA Urobilinogen (test code = UA no gt 0.1-1.0 Urobilinogen) [facility] [id number] 18:19:00 Test Item Value Reference Range Interpretation Comments RBC product (test code Product available = RBC product) (01/08/21 1:19 PM) [place] [id number] 18:19:00 Test Item Value Reference Range Interpretation Comments Glucose Lvl (test code = Glucose Lvl) 106 70-99 [place] [id number] 18:19:00 Test Item Value Reference Range Interpretation Comments BUN (test code = BUN) 37 7-22 [facility]2021-07-15 18:19:00 Test Item Value Reference Range Interpretation Comments Creatinine Lvl (test code = Creatinine 1.00 0.50-1.40 Lvl) [place] [id number] 18:19:00 Test Item Value Reference Range Interpretation Comments Sodium Lvl (test code = Sodium Lvl) 140 135-145 [facility]2021-07-15 18:19:00 Test Item Value Reference Range Interpretation Comments Potassium Lvl (test code = Potassium 4.4 3.5-5.1 Lvl) [facility]2021-07-15 18:19:00 Test Item Value Reference Range Interpretation Comments Chloride Lvl (test code = Chloride Lvl) 104 95-109 [facility]2021-07-15 18:19:00 Test Item Value Reference Range Interpretation Comments CO2 (test code = CO2) 32 24-32 [facility]2021-07-15 18:19:00 Test Item Value Reference Range Interpretation Comments Calcium Lvl (test code = Calcium Lvl) 10.8 8.5-10.5 [facility]2021-07-15 18:19:00 Test Item Value Reference Range Interpretation Comments AGAP (test code = AGAP) 8.4 10.0-20.0 [facility]2021-07-15 18:19:00 Test Item Value Reference Range Interpretation Comments eGFR (test code = eGFR) 58 [facility]ERT[facility]ENEM:SUSC:PT:ISOLATE:ORDQN:[id number] 18:19:00 Test Item Value Reference Range Interpretation Comments Culture: Urine (test >100,000 CFU/mL code = Culture: Escherichia coli <10,000 Urine) CFU/mL Skin Kimber[facility] HospitalMARSHAAPENEM:SUSC:PT:ISOLATE:ORDQN:[id number] 18:19:00 Test Item Value Reference Range Interpretation Comments Escherichia coli (test code Escherichia coli = Escherichia coli) [facility] [id number] 18:19:00 Test Item Value Reference Range Interpretation Comments WBC X 10x3 (test code = WBC X 10x3) 8.2 3.7-10.4 [facility] Hospit[id number] 18:19:00 Test Item Value Reference Range Interpretation Comments RBC X 10x6 (test code = RBC X 10x6) 3.81 4.20-5.40 [facility] [id number] 18:19:00 Test Item Value Reference Range Interpretation Comments RBC product (test code Product available = RBC product) (01/08/21 1:19 PM) [facility]2021-07-15 18:19:00 Test Item Value Reference Range Interpretation Comments Glucose Lvl (test code = Glucose Lvl) 106 70-99 [facility]2021-07-15 18:19:00 Test Item Value Reference Range Interpretation Comments BUN (test code = BUN) 37 7-22 [facility]2021-07-15 18:19:00 Test Item Value Reference Range Interpretation Comments Creatinine Lvl (test code = Creatinine 1.00 0.50-1.40 Lvl) [facility]2021-07-15 18:19:00 Test Item Value Reference Range Interpretation Comments Sodium Lvl (test code = Sodium Lvl) 140 135-145 [facility] Hos[id number] 18:19:00 Test Item Value Reference Range Interpretation Comments Hgb (test code = Hgb) 12.0 12.0-16.0 [facility]2021-07-15 18:19:00 Test Item Value Reference Range Interpretation Comments Potassium Lvl (test code = Potassium 4.4 3.5-5.1 Lvl) [facility]2021-07-15 18:19:00 Test Item Value Reference Range Interpretation Comments Chloride Lvl (test code = Chloride Lvl) 104 95-109 [facility]2021-07-15 18:19:00 Test Item Value Reference Range Interpretation Comments CO2 (test code = CO2) 32 24-32 [facility]2021-07-15 18:19:00 Test Item Value Reference Range Interpretation Comments Calcium Lvl (test code = Calcium Lvl) 10.8 8.5-10.5 [facility] [id number] 18:19:00 Test Item Value Reference Range Interpretation Comments AGAP (test code = AGAP) 8.4 10.0-20.0 [facility] [id number] 18:19:00 Test Item Value Reference Range Interpretation Comments eGFR (test code = eGFR) 58 [facility] HospitalERT[facility]ENEM:SUSC:PT:ISOLATE:ORDQN:[id number] 18:19:00 Test Item Value Reference Range Interpretation Comments Culture: Urine (test >100,000 CFU/mL code = Culture: Escherichia coli <10,000 Urine) CFU/mL Skin [facility] HospitalERT[facility]ENEM:SUSC:PT:ISOLATE:ORDQN:[id number] 18:19:00 Test Item Value Reference Range Interpretation Comments Escherichia coli (test code Escherichia coli = Escherichia coli) [facility] Hospit[id number] 18:19:00 Test Item Value Reference Range Interpretation Comments WBC X 10x3 (test code = WBC X 10x3) 8.2 3.7-10.4 [facility] HospitalPlbqwmiDBYYFFRBCT5944-66-17 18:19:00 Test Item Value Reference Range Interpretation Comments RBC X 10x6 (test code = RBC X 10x6) 3.81 4.20-5.40 [facility] HospitalOyvqtrfKUWPGDSSEG5059-93-08 18:19:00 Test Item Value Reference Range Interpretation Comments Hct (test code = Hct) 36.2 36.0-48.0 [facility] HospitalVxdkoyyVGXCRGMUMX2042-60-20 18:19:00 Test Item Value Reference Range Interpretation Comments Hgb (test code = Hgb) 12.0 12.0-16.0 [facility] HospitalGalnfdvLFWNBULZGF6521-31-26 18:19:00 Test Item Value Reference Range Interpretation Comments Hct (test code = Hct) 36.2 36.0-48.0 [facility] HospitalQtcprsqXYZBNFHITL4573-04-75 18:19:00 Test Item Value Reference Range Interpretation Comments MCV (test code = MCV) 95.2 80.0-98.0 [facility] HospitalNmsiccuWPVQGDUSQQ8043-55-71 18:19:00 Test Item Value Reference Range Interpretation Comments MCH (test code = MCH) 31.5 pg 27.0-31.0 [place] 824581-07-15 18:19:00 Test Item Value Reference Range Interpretation Comments MCHC (test code = MCHC) 33.1 32.0-36.0 [place] [address]-07-15 18:19:00 Test Item Value Reference Range Interpretation Comments RDW (test code = RDW) 13.0 11.5-14.5 [place] 824581-07-15 18:19:00 Test Item Value Reference Range Interpretation Comments Platelet (test code = Platelet) 239 133-450 [facility] HospitalLyzkbkgGMXDWKGGUX7409-71-35 18:19:00 Test Item Value Reference Range Interpretation Comments MPV (test code = MPV) 7.8 7.4-10.4 [place] [address]-07-15 18:19:00 Test Item Value Reference Range Interpretation Comments PT (test code = PT) 13.9 s 12.0-14.7 [place] 824581-07-15 18:19:00 Test Item Value Reference Range Interpretation Comments INR (test code = INR) 1.08 1 0.85-1.17 [place] 824581-07-15 18:19:00 Test Item Value Reference Range Interpretation Comments MCV (test code = MCV) 95.2 80.0-98.0 [place] [address]-07-15 18:19:00 Test Item Value Reference Range Interpretation Comments PTT (test code = PTT) 29.2 s 22.9-35.8 [place] 824581-07-15 18:19:00 Test Item Value Reference Range Interpretation Comments Segs (test code = Segs) 63.1 45.0-75.0 [place] 824581-07-15 18:19:00 Test Item Value Reference Range Interpretation Comments Lymphocytes (test code = Lymphocytes) 23.0 20.0-40.0 [place] [address]-07-15 18:19:00 Test Item Value Reference Range Interpretation Comments Monocytes (test code = Monocytes) 7.5 2.0-12.0 [place] [address]-07-15 18:19:00 Test Item Value Reference Range Interpretation Comments Eosinophils (test code = 5.0 See_Comment [A utomated message] The Eosinophils) system which ge nerated this result tra nsmitted reference range : <=4.0. The reference r katie was not used to int erpret this result as normal/abnormal . [facility] HospitalDxjikkwEAFCRYRMYD0658-83-30 18:19:00 Test Item Value Reference Range Interpretation Comments Basophils (test code = 1.4 See_Comment [Aut omated message] The Basophils) system which ge nerated this result tra nsmitted reference range : <=1.0. The reference r katie was not used to int erpret this result as normal/abnormal . [facility] HospitalJzfkwcpIJUPGOLRZT1293-57-30 18:19:00 Test Item Value Reference Range Interpretation Comments Neutrophils # (test code = Neutrophils 5.2 1.5-8.1 #) [facility] HospitalTkckusbZBRNVWMLNO7517-60-91 18:19:00 Test Item Value Reference Range Interpretation Comments Lymphocytes # (test code = Lymphocytes 1.9 1.0-5.5 #) [facility] HospitalAnimbsyNDFVFUVRAG1981-90-00 18:19:00 Test Item Value Reference Range Interpretation Comments Monocytes # (test code 0.6 See_Comment [Aut omated message] The = Monocytes #) system which generated this result tra nsmitted reference range : <=0.8. The reference r katie was not used to int erpret this result as normal/abnormal . [facility] HospitalEhssklaMWMPBGLQIO8691-51-55 18:19:00 Test Item Value Reference Range Interpretation Comments Eosinophils # (test code 0.4 See_Comment [A utomated message] The = Eosinophils #) system whic h generated this result tra nsmitted reference range : <=0.5. The reference r katie was not used to int erpret this result as normal/abnormal . [facility] HospitalPiwwlmkGFILTZMLIC5180-47-51 18:19:00 Test Item Value Reference Range Interpretation Comments MCH (test code = MCH) 31.5 pg 27.0-31.0 [facility] HospitalWgkaaykBUNEOTGMWX9246-19-89 18:19:00 Test Item Value Reference Range Interpretation Comments Basophils # (test code 0.1 See_Comment [Aut omated message] The = Basophils #) system which generated this result tra nsmitted reference range : <=0.2. The reference r katie was not used to int erpret this result as normal/abnormal . [facility] AND [id number] 18:19:00 Test Item Value Reference Range Interpretation Comments UA Turbidity (test code Slight *ABN*(01/08/21 = UA Turbidity) 1:19 PM) [facility] [id number] 18:19:00 Test Item Value Reference Range Interpretation Comments UA Spec Grav (test code = UA Spec 1.019 1 Grav) [facility] [id number] 18:19:00 Test Item Value Reference Range Interpretation Comments UA pH (test code = UA pH) 5.0 1 5.0-8.0 [facility] [id number] 18:19:00 Test Item Value Reference Range Interpretation Comments UA Protein (test code = UA Negative mg/dL Protein) [facility] [id number] 18:19:00 Test Item Value Reference Range Interpretation Comments UA Glucose (test code = UA Negative mg/dL Glucose) [facility] [id number] 18:19:00 Test Item Value Reference Range Interpretation Comments UA Ketones (test code = UA Negative mg/dL Ketones) [facility] [id number] 18:19:00 Test Item Value Reference Range Interpretation Comments UA Bili (test code = Negative *NA*(01/08/21 UA Bili) 1:19 PM) [facility] [id number] 18:19:00 Test Item Value Reference Range Interpretation Comments UA Blood (test code = Negative (01/08/21 1:19 UA Blood) PM) [facility] AND [id number] 18:19:00 Test Item Value Reference Range Interpretation Comments UA Nitrite (test code Positive *ABN*(01/08/21 = UA Nitrite) 1:19 PM) [facility] PvvkqwhRVLMGUUHBD9184-27-73 18:19:00 Test Item Value Reference Range Interpretation Comments MCHC (test code = MCHC) 33.1 32.0-36.0 [facility] [id number] 18:19:00 Test Item Value Reference Range Interpretation Comments UA Leuk Est (test code Large *ABN*(01/08/21 = UA Leuk Est) 1:19 PM) [facility] [id number] 18:19:00 Test Item Value Reference Range Interpretation Comments UA Sq Epi (test code = UA Sq Occasional /LPF Epi) [facility] [id number] 18:19:00 Test Item Value Reference Range Interpretation Comments UA WBC (test code = 47 See_Comment [Automa matteo message] The UA WBC) system which ge nerated this result transmit matteo reference range : <=5. The reference range was not used to interpr et this result as miesha l/abnormal. [facility] AND [id number] 18:19:00 Test Item Value Reference Range Interpretation Comments UA RBC (test code = 2 See_Comment [Automa matteo message] The UA RBC) system which ge nerated this result transmit matteo reference range : <=2. The reference range was not used to interpr et this result as miesha l/abnormal. [facility] AND [id number] 18:19:00 Test Item Value Reference Range Interpretation Comments UA Bacteria (test code = UA Moderate /HPF Bacteria) [facility] AND [id number] 18:19:00 Test Item Value Reference Range Interpretation Comments UA Mucus (test code = UA Mucus) Few /LPF [facility] AND [id number] 18:19:00 Test Item Value Reference Range Interpretation Comments UA Color (test code = UA Color) Yellow [facility] AND [id number] 18:19:00 Test Item Value Reference Range Interpretation Comments UA Urobilinogen (test code = UA no gt 0.1-1.0 Urobilinogen) [facility] HospitalPxyzibgFGXTZMHUNA7051-37-44 18:19:00 Test Item Value Reference Range Interpretation Comments RDW (test code = RDW) 13.0 11.5-14.5 [facility] HospitalR[id number] 18:19:00 Test Item Value Reference Range Interpretation Comments Platelet (test code = Platelet) 239 133-450 [facility] HospitalHiamrihWJRHJBMVVH7640-13-67 18:19:00 Test Item Value Reference Range Interpretation Comments MPV (test code = MPV) 7.8 7.4-10.4 [facility] HospitalKkjyyzoYFLKKCIQIT9327-91-21 18:19:00 Test Item Value Reference Range Interpretation Comments PT (test code = PT) 13.9 s 12.0-14.7 [facility]VfnrlddIAWIMSIJVW9404-36-79 18:19:00 Test Item Value Reference Range Interpretation Comments INR (test code = INR) 1.08 1 0.85-1.17 [facility] HospitalZiihbkzMEGZYYBILA8235-77-44 18:19:00 Test Item Value Reference Range Interpretation Comments PTT (test code = PTT) 29.2 s 22.9-35.8 [facility] HospitalGlisvduDOHBVNKGJM6475-83-90 18:19:00 Test Item Value Reference Range Interpretation Comments Segs (test code = Segs) 63.1 45.0-75.0 [facility] HospitalFvphvucMNGVALPLVK5827-09-13 18:19:00 Test Item Value Reference Range Interpretation Comments Lymphocytes (test code = Lymphocytes) 23.0 20.0-40.0 [facility] HospitalBjztgljNZGQUVTBOF9357-27-52 18:19:00 Test Item Value Reference Range Interpretation Comments Monocytes (test code = Monocytes) 7.5 2.0-12.0 [facility] HospitalOooapxpOXMVEPBJYY5188-95-53 18:19:00 Test Item Value Reference Range Interpretation Comments Eosinophils (test code = 5.0 See_Comment [A utomated message] The Eosinophils) system which ge nerated this result tra nsmitted reference range : <=4.0. The reference r katie was not used to int erpret this result as normal/abnormal . [facility] HospitalOckphfwRJVCSMURJS2951-45-29 18:19:00 Test Item Value Reference Range Interpretation Comments Basophils (test code = 1.4 See_Comment [Aut omated message] The Basophils) system which ge nerated this result tra nsmitted reference range : <=1.0. The reference r katie was not used to int erpret this result as normal/abnormal . [facility] Hospit[id number] 18:19:00 Test Item Value Reference Range Interpretation Comments Neutrophils # (test code = Neutrophils 5.2 1.5-8.1 #) [facility] HospitalGzougeiLEOMBEZZGN6861-55-29 18:19:00 Test Item Value Reference Range Interpretation Comments Lymphocytes # (test code = Lymphocytes 1.9 1.0-5.5 #) [facility] HospitalRubounlKTHXTKFJSK0717-14-36 18:19:00 Test Item Value Reference Range Interpretation Comments Monocytes # (test code 0.6 See_Comment [Aut omated message] The = Monocytes #) system which generated this result tra nsmitted reference range : <=0.8. The reference r katie was not used to int erpret this result as normal/abnormal . [facility] Ho[id number] 18:19:00 Test Item Value Reference Range Interpretation Comments Eosinophils # (test code 0.4 See_Comment [A utomated message] The = Eosinophils #) system whic h generated this result tra nsmitted reference range : <=0.5. The reference r katie was not used to int erpret this result as normal/abnormal . [facility] Hospit[id number] 18:19:00 Test Item Value Reference Range Interpretation Comments Basophils # (test code 0.1 See_Comment [Aut omated message] The = Basophils #) system which generated this result tra nsmitted reference range : <=0.2. The reference r katie was not used to int erpret this result as normal/abnormal . [facility] AND [id number] 18:19:00 Test Item Value Reference Range Interpretation Comments UA Turbidity (test code Slight *ABN*(01/08/21 = UA Turbidity) 1:19 PM) [facility] AND [id number] 18:19:00 Test Item Value Reference Range Interpretation Comments UA Spec Grav (test code = UA Spec 1.019 1 Grav) [facility] AND [id number] 18:19:00 Test Item Value Reference Range Interpretation Comments UA pH (test code = UA pH) 5.0 1 5.0-8.0 [facility] AND [id number] 18:19:00 Test Item Value Reference Range Interpretation Comments UA Protein (test code = UA Negative mg/dL Protein) [facility] AND [id number] 18:19:00 Test Item Value Reference Range Interpretation Comments UA Glucose (test code = UA Negative mg/dL Glucose) [facility] AND [id number] 18:19:00 Test Item Value Reference Range Interpretation Comments UA Ketones (test code = UA Negative mg/dL Ketones) [facility] AND [id number] 18:19:00 Test Item Value Reference Range Interpretation Comments UA Bili (test code = Negative *NA*(01/08/21 UA Bili) 1:19 PM) [facility] AND [id number] 18:19:00 Test Item Value Reference Range Interpretation Comments UA Blood (test code = Negative (01/08/21 1:19 UA Blood) PM) [facility] [id number] 18:19:00 Test Item Value Reference Range Interpretation Comments UA Nitrite (test code Positive *ABN*(01/08/21 = UA Nitrite) 1:19 PM) [facility] [id number] 18:19:00 Test Item Value Reference Range Interpretation Comments UA Leuk Est (test code Large *ABN*(01/08/21 = UA Leuk Est) 1:19 PM) [facility] [id number] 18:19:00 Test Item Value Reference Range Interpretation Comments UA Sq Epi (test code = UA Sq Occasional /LPF Epi) [facility] AND [id number] 18:19:00 Test Item Value Reference Range Interpretation Comments UA WBC (test code = 47 See_Comment [Automa matteo message] The UA WBC) system which ge nerated this result transmit matteo reference range : <=5. The reference range was not used to interpr et this result as miesha l/abnormal. [facility] [id number] 18:19:00 Test Item Value Reference Range Interpretation Comments UA RBC (test code = 2 See_Comment [Automa matteo message] The UA RBC) system which ge nerated this result transmit matteo reference range : <=2. The reference range was not used to interpr et this result as miesha l/abnormal. [facility] [id number] 18:19:00 Test Item Value Reference Range Interpretation Comments UA Bacteria (test code = UA Moderate /HPF Bacteria) [facility] AND [id number] 18:19:00 Test Item Value Reference Range Interpretation Comments UA Mucus (test code = UA Mucus) Few /LPF [facility] [id number] 18:19:00 Test Item Value Reference Range Interpretation Comments UA Color (test code = UA Color) Yellow [facility] AND [id number] 18:19:00 Test Item Value Reference Range Interpretation Comments UA Urobilinogen (test code = UA no gt 0.1-1.0 Urobilinogen) [facility] [id number] 18:19:00 Test Item Value Reference Range Interpretation Comments RBC product (test code Product available = RBC product) (01/08/21 1:19 PM) [place] [id number] 18:19:00 Test Item Value Reference Range Interpretation Comments Glucose Lvl (test code = Glucose Lvl) 106 70-99 [place] 918531-07-15 18:19:00 Test Item Value Reference Range Interpretation Comments BUN (test code = BUN) 37 7-22 [facility]2021-07-15 18:19:00 Test Item Value Reference Range Interpretation Comments Creatinine Lvl (test code = Creatinine 1.00 0.50-1.40 Lvl) [facility]2021-07-15 18:19:00 Test Item Value Reference Range Interpretation Comments Sodium Lvl (test code = Sodium Lvl) 140 135-145 [facility]2021-07-15 18:19:00 Test Item Value Reference Range Interpretation Comments Potassium Lvl (test code = Potassium 4.4 3.5-5.1 Lvl) [place] 918531-07-15 18:19:00 Test Item Value Reference Range Interpretation Comments Chloride Lvl (test code = Chloride Lvl) 104 95-109 [facility]2021-07-15 18:19:00 Test Item Value Reference Range Interpretation Comments CO2 (test code = CO2) 32 24-32 [facility]2021-07-15 18:19:00 Test Item Value Reference Range Interpretation Comments Calcium Lvl (test code = Calcium Lvl) 10.8 8.5-10.5 [facility]2021-07-15 18:19:00 Test Item Value Reference Range Interpretation Comments AGAP (test code = AGAP) 8.4 10.0-20.0 [facility]2021-07-15 18:19:00 Test Item Value Reference Range Interpretation Comments eGFR (test code = eGFR) 58 [facility] HospitalERTAPENEM:SUSC:PT:ISOLATE:ORDQN:[id number] 18:19:00 Test Item Value Reference Range Interpretation Comments Culture: Urine (test >100,000 CFU/mL code = Culture: Escherichia coli <10,000 Urine) CFU/mL [facility]:SUSC:PT:ISOLATE:ORDQN:[id number] 18:19:00 Test Item Value Reference Range Interpretation Comments Escherichia coli (test code Escherichia coli = Escherichia coli) [facility] HospitalWzuwssbDQEFCXQJUM6480-91-95 18:19:00 Test Item Value Reference Range Interpretation Comments WBC X 10x3 (test code = WBC X 10x3) 8.2 3.7-10.4 [facility] HospitalCiswtsgXGJYHUGPKS2331-49-43 18:19:00 Test Item Value Reference Range Interpretation Comments RBC X 10x6 (test code = RBC X 10x6) 3.81 4.20-5.40 [facility] HospitalBqzyxtdCNTVYQYNNL1856-02-31 18:19:00 Test Item Value Reference Range Interpretation Comments Hgb (test code = Hgb) 12.0 12.0-16.0 [facility] HospitalWmhzdbjEWNMJFBWVD5075-27-22 18:19:00 Test Item Value Reference Range Interpretation Comments Hct (test code = Hct) 36.2 36.0-48.0 [facility] HospitalGxpracxHSYPFBUAZL8446-89-32 18:19:00 Test Item Value Reference Range Interpretation Comments MCV (test code = MCV) 95.2 80.0-98.0 [facility] HospitalJyonqmqKXZMYJTKPC5676-86-39 18:19:00 Test Item Value Reference Range Interpretation Comments MCH (test code = MCH) 31.5 pg 27.0-31.0 [facility] HospitalPaldlnhGGVXGPDDKA4475-52-26 18:19:00 Test Item Value Reference Range Interpretation Comments MCHC (test code = MCHC) 33.1 32.0-36.0 [facility] HospitalDeeheomEWAJZKNXLJ2914-46-89 18:19:00 Test Item Value Reference Range Interpretation Comments RDW (test code = RDW) 13.0 11.5-14.5 [facility] Hos[id number] 18:19:00 Test Item Value Reference Range Interpretation Comments Platelet (test code = Platelet) 239 133-450 [facility] HospitalVioagrjDWJXDJGDBZ5133-54-28 18:19:00 Test Item Value Reference Range Interpretation Comments MPV (test code = MPV) 7.8 7.4-10.4 [place] 824581-07-15 18:19:00 Test Item Value Reference Range Interpretation Comments PT (test code = PT) 13.9 s 12.0-14.7 [facility] HospitalBdfjoswOGWIQENNDV8282-27-36 18:19:00 Test Item Value Reference Range Interpretation Comments INR (test code = INR) 1.08 1 0.85-1.17 [place] 824581-07-15 18:19:00 Test Item Value Reference Range Interpretation Comments PTT (test code = PTT) 29.2 s 22.9-35.8 [place] 824581-07-15 18:19:00 Test Item Value Reference Range Interpretation Comments Segs (test code = Segs) 63.1 45.0-75.0 [place] 824581-07-15 18:19:00 Test Item Value Reference Range Interpretation Comments Lymphocytes (test code = Lymphocytes) 23.0 20.0-40.0 [place] 824581-07-15 18:19:00 Test Item Value Reference Range Interpretation Comments Monocytes (test code = Monocytes) 7.5 2.0-12.0 [place] 824581-07-15 18:19:00 Test Item Value Reference Range Interpretation Comments Eosinophils (test code = 5.0 See_Comment [A utomated message] The Eosinophils) system which ge nerated this result tra nsmitted reference range : <=4.0. The reference r katie was not used to int erpret this result as normal/abnormal . [facility] HospitalEqxnkorROAIRYZKMP4502-86-18 18:19:00 Test Item Value Reference Range Interpretation Comments Basophils (test code = 1.4 See_Comment [Aut omated message] The Basophils) system which ge nerated this result tra nsmitted reference range : <=1.0. The reference r katie was not used to int erpret this result as normal/abnormal . [facility] Hospit[id number] 18:19:00 Test Item Value Reference Range Interpretation Comments Neutrophils # (test code = Neutrophils 5.2 1.5-8.1 #) [place] 824581-07-15 18:19:00 Test Item Value Reference Range Interpretation Comments Lymphocytes # (test code = Lymphocytes 1.9 1.0-5.5 #) [place] 824581-07-15 18:19:00 Test Item Value Reference Range Interpretation Comments Monocytes # (test code 0.6 See_Comment [Aut omated message] The = Monocytes #) system which generated this result tra nsmitted reference range : <=0.8. The reference r katie was not used to int erpret this result as normal/abnormal . [place] 824581-07-15 18:19:00 Test Item Value Reference Range Interpretation Comments Eosinophils # (test code 0.4 See_Comment [A utomated message] The = Eosinophils #) system whic h generated this result tra nsmitted reference range : <=0.5. The reference r katie was not used to int erpret this result as normal/abnormal . [facility] HospitalHoioatxRDJIIRCLUV9627-67-14 18:19:00 Test Item Value Reference Range Interpretation Comments Basophils # (test code 0.1 See_Comment [Aut omated message] The = Basophils #) system which generated this result tra nsmitted reference range : <=0.2. The reference r katie was not used to int erpret this result as normal/abnormal . [facility] AND [id number] 18:19:00 Test Item Value Reference Range Interpretation Comments UA Turbidity (test code Slight *ABN*(01/08/21 = UA Turbidity) 1:19 PM) [facility] AND [id number] 18:19:00 Test Item Value Reference Range Interpretation Comments UA Spec Grav (test code = UA Spec 1.019 1 Grav) [facility] AND [id number] 18:19:00 Test Item Value Reference Range Interpretation Comments UA pH (test code = UA pH) 5.0 1 5.0-8.0 [facility] AND [id number] 18:19:00 Test Item Value Reference Range Interpretation Comments UA Protein (test code = UA Negative mg/dL Protein) [facility] AND [id number] 18:19:00 Test Item Value Reference Range Interpretation Comments UA Glucose (test code = UA Negative mg/dL Glucose) [facility] AND [id number] 18:19:00 Test Item Value Reference Range Interpretation Comments UA Ketones (test code = UA Negative mg/dL Ketones) [facility] AND [id number] 18:19:00 Test Item Value Reference Range Interpretation Comments UA Bili (test code = Negative *NA*(01/08/21 UA Bili) 1:19 PM) [facility] AND [id number] 18:19:00 Test Item Value Reference Range Interpretation Comments UA Blood (test code = Negative (01/08/21 1:19 UA Blood) PM) [facility] AND [id number] 18:19:00 Test Item Value Reference Range Interpretation Comments UA Nitrite (test code Positive *ABN*(01/08/21 = UA Nitrite) 1:19 PM) [facility] [id number] 18:19:00 Test Item Value Reference Range Interpretation Comments UA Leuk Est (test code Large *ABN*(01/08/21 = UA Leuk Est) 1:19 PM) [facility] [id number] 18:19:00 Test Item Value Reference Range Interpretation Comments UA Sq Epi (test code = UA Sq Occasional /LPF Epi) [facility] AND [id number] 18:19:00 Test Item Value Reference Range Interpretation Comments UA WBC (test code = 47 See_Comment [Automa matteo message] The UA WBC) system which ge nerated this result transmit matteo reference range : <=5. The reference range was not used to interpr et this result as miesha l/abnormal. [facility] AND [id number] 18:19:00 Test Item Value Reference Range Interpretation Comments UA RBC (test code = 2 See_Comment [Automa matteo message] The UA RBC) system which ge nerated this result transmit matteo reference range : <=2. The reference range was not used to interpr et this result as miesha l/abnormal. [facility] [id number] 18:19:00 Test Item Value Reference Range Interpretation Comments UA Bacteria (test code = UA Moderate /HPF Bacteria) [facility] AND [id number] 18:19:00 Test Item Value Reference Range Interpretation Comments UA Mucus (test code = UA Mucus) Few /LPF [facility] AND [id number] 18:19:00 Test Item Value Reference Range Interpretation Comments UA Color (test code = UA Color) Yellow [facility] AND [id number] 18:19:00 Test Item Value Reference Range Interpretation Comments UA Urobilinogen (test code = UA no gt 0.1-1.0 Urobilinogen) [facility] [place] [id number] 08:06:00 Test Item Value Reference Range Interpretation Comments Glucose Lvl (test code = Glucose Lvl) 112 70-[address] [facility] [place] [id number] 08:06:00 Test Item Value Reference Range Interpretation Comments BUN (test code = BUN) 21 7-22 [facility]2021-05-05 08:06:00 Test Item Value Reference Range Interpretation Comments Creatinine Lvl (test code = Creatinine 0.70 0.50-1.40 Lvl) [place] 918531-05-05 08:06:00 Test Item Value Reference Range Interpretation Comments Sodium Lvl (test code = Sodium Lvl) 139 135-145 [place] 918531-05-05 08:06:00 Test Item Value Reference Range Interpretation Comments Potassium Lvl (test code = Potassium 4.3 3.5-5.1 Lvl) [place] 918531-05-05 08:06:00 Test Item Value Reference Range Interpretation Comments Chloride Lvl (test code = Chloride Lvl) 105 95-109 [place] 918531-05-05 08:06:00 Test Item Value Reference Range Interpretation Comments CO2 (test code = CO2) 26 24-32 [place] 918531-05-05 08:06:00 Test Item Value Reference Range Interpretation Comments Calcium Lvl (test code = Calcium Lvl) 8.6 8.5-10.5 [facility]2021-05-05 08:06:00 Test Item Value Reference Range Interpretation Comments AGAP (test code = AGAP) 12.3 10.0-20.0 [facility]2021-05-05 08:06:00 Test Item Value Reference Range Interpretation Comments eGFR (test code = eGFR) 89 [place] 918531-05-05 08:06:00 Test Item Value Reference Range Interpretation Comments Magnesium Lvl (test code = Magnesium 2.2 1.8-2.4 Lvl) [place] 918531-05-05 08:06:00 Test Item Value Reference Range Interpretation Comments Phosphorus (test code = Phosphorus) 3.0 2.5-4.5 [place] 824581-05-05 08:06:00 Test Item Value Reference Range Interpretation Comments WBC X 10x3 (test code = WBC X 10x3) 11.2 3.7-10.4 [place] 824581-05-05 08:06:00 Test Item Value Reference Range Interpretation Comments RBC X 10x6 (test code = RBC X 10x6) 3.22 4.20-5.40 [facility]BbbodmgSLCWHZUTHR2394-43-25 08:06:00 Test Item Value Reference Range Interpretation Comments Hgb (test code = Hgb) 10.3 12.0-16.0 [facility] HospitalUoioftfIWFJVUUKXP8715-14-61 08:06:00 Test Item Value Reference Range Interpretation Comments Hct (test code = Hct) 30.6 36.0-48.0 [facility] HospitalNjechzoFIEAUJGRKJ8335-60-92 08:06:00 Test Item Value Reference Range Interpretation Comments MCV (test code = MCV) 94.8 80.0-98.0 [facility] HospitalCkswyexQRLFKBXYNQ4589-89-88 08:06:00 Test Item Value Reference Range Interpretation Comments MCH (test code = MCH) 31.9 pg 27.0-31.0 [facility] HospitalZfgyblgUGSJEEYZGZ8670-43-64 08:06:00 Test Item Value Reference Range Interpretation Comments MCHC (test code = MCHC) 33.6 32.0-36.0 [facility] HospitalEhzwhhxNTVDPLZRSG2057-24-12 08:06:00 Test Item Value Reference Range Interpretation Comments RDW (test code = RDW) 12.7 11.5-14.5 [facility] HospitalWghjcahLFRJSNLLBG3564-97-20 08:06:00 Test Item Value Reference Range Interpretation Comments Platelet (test code = Platelet) 179 133-450 [facility] HospitalOlbsnysCASIYHNLZO9278-52-95 08:06:00 Test Item Value Reference Range Interpretation Comments MPV (test code = MPV) 7.5 7.4-10.4 [facility] HospitalMlfzeshNBHTPIEMMN1042-76-89 08:06:00 Test Item Value Reference Range Interpretation Comments PT (test code = PT) 13.2 s 12.0-14.7 [facility] HospitalApqklezBBHORLWVMB9635-15-21 08:06:00 Test Item Value Reference Range Interpretation Comments INR (test code = INR) 1.01 1 0.85-1.17 [facility] HospitalBsnvvhmIQBSZLTKEA7279-59-62 08:06:00 Test Item Value Reference Range Interpretation Comments PTT (test code = PTT) 29.1 s 22.9-35.8 [facility] HospitalIhbcitfUCDAIODKIE9580-31-34 08:06:00 Test Item Value Reference Range Interpretation Comments Segs (test code = Segs) 88.3 45.0-75.0 [place] 824581-05-05 08:06:00 Test Item Value Reference Range Interpretation Comments Lymphocytes (test code = Lymphocytes) 7.7 20.0-40.0 [place] 824581-05-05 08:06:00 Test Item Value Reference Range Interpretation Comments Monocytes (test code = Monocytes) 3.7 2.0-12.0 [facility] HospitalLnlhlslMVDSOLQMQB8485-50-45 08:06:00 Test Item Value Reference Range Interpretation Comments Basophils (test code = 0.3 See_Comment [Aut omated message] The Basophils) system which ge nerated this result tra nsmitted reference range : <=1.0. The reference r katie was not used to int erpret this result as normal/abnormal . [place] 824581-05-05 08:06:00 Test Item Value Reference Range Interpretation Comments Neutrophils # (test code = Neutrophils 9.9 1.5-8.1 #) [facility] HospitalGgoqehqQDYISVFBTJ2234-88-16 08:06:00 Test Item Value Reference Range Interpretation Comments Lymphocytes # (test code = Lymphocytes 0.9 1.0-5.5 #) [place] 824581-05-05 08:06:00 Test Item Value Reference Range Interpretation Comments Monocytes # (test code 0.4 See_Comment [Aut omated message] The = Monocytes #) system which generated this result tra nsmitted reference range : <=0.8. The reference r katie was not used to int erpret this result as normal/abnormal . [facility]2021-05-05 08:06:00 Test Item Value Reference Range Interpretation Comments Ca Ion WB (test code = Ca Ion WB) 1.08 1.05-1.25 [place] 959111-05-05 08:06:00 Test Item Value Reference Range Interpretation Comments Ca Norm WB (test code = Ca Norm WB) 1.12 1.05-1.25 [place] 918531-05-05 08:06:00 Test Item Value Reference Range Interpretation Comments Glucose Lvl (test code = Glucose Lvl) 112 70-99 [facility]2021-05-05 08:06:00 Test Item Value Reference Range Interpretation Comments BUN (test code = BUN) 21 7-22 [place] 918531-05-05 08:06:00 Test Item Value Reference Range Interpretation Comments Creatinine Lvl (test code = Creatinine 0.70 0.50-1.40 Lvl) [place] 918531-05-05 08:06:00 Test Item Value Reference Range Interpretation Comments Sodium Lvl (test code = Sodium Lvl) 139 135-145 [place] 918531-05-05 08:06:00 Test Item Value Reference Range Interpretation Comments Potassium Lvl (test code = Potassium 4.3 3.5-5.1 Lvl) [facility]2021-05-05 08:06:00 Test Item Value Reference Range Interpretation Comments Chloride Lvl (test code = Chloride Lvl) 105 95-109 [place] 918531-05-05 08:06:00 Test Item Value Reference Range Interpretation Comments CO2 (test code = CO2) 26 24-32 [place] 918531-05-05 08:06:00 Test Item Value Reference Range Interpretation Comments Calcium Lvl (test code = Calcium Lvl) 8.6 8.5-10.5 [place] 918531-05-05 08:06:00 Test Item Value Reference Range Interpretation Comments AGAP (test code = AGAP) 12.3 10.0-20.0 [place] 918531-05-05 08:06:00 Test Item Value Reference Range Interpretation Comments eGFR (test code = eGFR) 89 [facility]2021-05-05 08:06:00 Test Item Value Reference Range Interpretation Comments Magnesium Lvl (test code = Magnesium 2.2 1.8-2.4 Lvl) [place] 918531-05-05 08:06:00 Test Item Value Reference Range Interpretation Comments Phosphorus (test code = Phosphorus) 3.0 2.5-4.5 [place] 824581-05-05 08:06:00 Test Item Value Reference Range Interpretation Comments WBC X 10x3 (test code = WBC X 10x3) 11.2 3.7-10.4 [facility] HospitalBazzvlvIAHEANNTPS3896-47-37 08:06:00 Test Item Value Reference Range Interpretation Comments RBC X 10x6 (test code = RBC X 10x6) 3.22 4.20-5.40 [place] 824581-05-05 08:06:00 Test Item Value Reference Range Interpretation Comments Hgb (test code = Hgb) 10.3 12.0-16.0 [facility] HospitalEgnbcwfQAGJJVRNUG9937-62-76 08:06:00 Test Item Value Reference Range Interpretation Comments Hct (test code = Hct) 30.6 36.0-48.0 [facility] HospitalUbjnjwwKRBVHLXJOC9825-64-88 08:06:00 Test Item Value Reference Range Interpretation Comments MCV (test code = MCV) 94.8 80.0-98.0 [facility] HospitalAixboriMKBJEMZEKC0186-45-50 08:06:00 Test Item Value Reference Range Interpretation Comments MCH (test code = MCH) 31.9 pg 27.0-31.0 [facility] HospitalQpiainrADUYSKXAMK9602-91-06 08:06:00 Test Item Value Reference Range Interpretation Comments MCHC (test code = MCHC) 33.6 32.0-36.0 [facility] HospitalEiahonhIPNWLAWNDH7203-25-16 08:06:00 Test Item Value Reference Range Interpretation Comments RDW (test code = RDW) 12.7 11.5-14.5 [facility] HospitalFficeevKKAFSZNGHW1535-91-61 08:06:00 Test Item Value Reference Range Interpretation Comments Platelet (test code = Platelet) 179 133-450 [facility] HospitalHalkhzwMAJWMPYCVU8524-18-16 08:06:00 Test Item Value Reference Range Interpretation Comments MPV (test code = MPV) 7.5 7.4-10.4 [facility] HospitalJwydgjjOFLNDSZWMF1868-06-32 08:06:00 Test Item Value Reference Range Interpretation Comments PT (test code = PT) 13.2 s 12.0-14.7 [facility] HospitalKakvzeyVXIYRMMMSV0198-60-68 08:06:00 Test Item Value Reference Range Interpretation Comments INR (test code = INR) 1.01 1 0.85-1.17 [facility] HospitalRhbwjgrURMOIYSTEA4408-30-73 08:06:00 Test Item Value Reference Range Interpretation Comments PTT (test code = PTT) 29.1 s 22.9-35.8 [facility] HospitalXqlxnctNEBBTZALNI9329-80-10 08:06:00 Test Item Value Reference Range Interpretation Comments Segs (test code = Segs) 88.3 45.0-75.0 [facility] HospitalThstkzdOZXHOMVDVL0565-04-64 08:06:00 Test Item Value Reference Range Interpretation Comments Lymphocytes (test code = Lymphocytes) 7.7 20.0-40.0 [facility] HospitalLyrerthDAJPJYOCUI0469-15-56 08:06:00 Test Item Value Reference Range Interpretation Comments Monocytes (test code = Monocytes) 3.7 2.0-12.0 [facility] HospitalEjtotgyBUEIRLQSRV1540-38-18 08:06:00 Test Item Value Reference Range Interpretation Comments Basophils (test code = 0.3 See_Comment [Aut omated message] The Basophils) system which ge nerated this result tra nsmitted reference range : <=1.0. The reference r katie was not used to int erpret this result as normal/abnormal . [facility] HospitalBrobahnHCDTZVUIUX5744-26-51 08:06:00 Test Item Value Reference Range Interpretation Comments Neutrophils # (test code = Neutrophils 9.9 1.5-8.1 #) [facility] HospitalIbzywijOSPLBLNTNM2453-32-06 08:06:00 Test Item Value Reference Range Interpretation Comments Lymphocytes # (test code = Lymphocytes 0.9 1.0-5.5 #) [facility] HospitalVteejczPSQKONWJFF2931-88-00 08:06:00 Test Item Value Reference Range Interpretation Comments Monocytes # (test code 0.4 See_Comment [Aut omated message] The = Monocytes #) system which generated this result tra nsmitted reference range : <=0.8. The reference r katie was not used to int erpret this result as normal/abnormal . [facility]2021-05-05 08:06:00 Test Item Value Reference Range Interpretation Comments Ca Ion WB (test code = Ca Ion WB) 1.08 1.05-1.25 [facility]2021-05-05 08:06:00 Test Item Value Reference Range Interpretation Comments Ca Norm WB (test code = Ca Norm WB) 1.12 1.05-1.25 [facility]2021-05-05 08:06:00 Test Item Value Reference Range Interpretation Comments Glucose Lvl (test code = Glucose Lvl) 112 70-99 [facility]2021-05-05 08:06:00 Test Item Value Reference Range Interpretation Comments BUN (test code = BUN) 21 7-22 [facility]2021-05-05 08:06:00 Test Item Value Reference Range Interpretation Comments Creatinine Lvl (test code = Creatinine 0.70 0.50-1.40 Lvl) [place] 918531-05-05 08:06:00 Test Item Value Reference Range Interpretation Comments Sodium Lvl (test code = Sodium Lvl) 139 135-145 [place] 918531-05-05 08:06:00 Test Item Value Reference Range Interpretation Comments Potassium Lvl (test code = Potassium 4.3 3.5-5.1 Lvl) [place] 918531-05-05 08:06:00 Test Item Value Reference Range Interpretation Comments Chloride Lvl (test code = Chloride Lvl) 105 95-109 [place] 918531-05-05 08:06:00 Test Item Value Reference Range Interpretation Comments CO2 (test code = CO2) 26 24-32 [place] 918531-05-05 08:06:00 Test Item Value Reference Range Interpretation Comments Calcium Lvl (test code = Calcium Lvl) 8.6 8.5-10.5 [place] 918531-05-05 08:06:00 Test Item Value Reference Range Interpretation Comments AGAP (test code = AGAP) 12.3 10.0-20.0 [place] 918531-05-05 08:06:00 Test Item Value Reference Range Interpretation Comments eGFR (test code = eGFR) 89 [place] 918531-05-05 08:06:00 Test Item Value Reference Range Interpretation Comments Magnesium Lvl (test code = Magnesium 2.2 1.8-2.4 Lvl) [place] 918531-05-05 08:06:00 Test Item Value Reference Range Interpretation Comments Phosphorus (test code = Phosphorus) 3.0 2.5-4.5 [place] 824581-05-05 08:06:00 Test Item Value Reference Range Interpretation Comments WBC X 10x3 (test code = WBC X 10x3) 11.2 3.7-10.4 [place] 824581-05-05 08:06:00 Test Item Value Reference Range Interpretation Comments RBC X 10x6 (test code = RBC X 10x6) 3.22 4.20-5.40 [place] 824581-05-05 08:06:00 Test Item Value Reference Range Interpretation Comments Hgb (test code = Hgb) 10.3 12.0-16.0 [place] 824581-05-05 08:06:00 Test Item Value Reference Range Interpretation Comments Hct (test code = Hct) 30.6 36.0-48.0 [facility] HospitalXabyfgpAXSEMIYLQS4707-02-46 08:06:00 Test Item Value Reference Range Interpretation Comments MCV (test code = MCV) 94.8 80.0-98.0 [facility] HospitalBymbbasZCQDTAIPUM2920-99-32 08:06:00 Test Item Value Reference Range Interpretation Comments MCH (test code = MCH) 31.9 pg 27.0-31.0 [facility] HospitalOiiqdwzDYQTWATSHP6111-30-22 08:06:00 Test Item Value Reference Range Interpretation Comments MCHC (test code = MCHC) 33.6 32.0-36.0 [facility] HospitalOxtszmvWDSRXLTQPF6445-34-23 08:06:00 Test Item Value Reference Range Interpretation Comments RDW (test code = RDW) 12.7 11.5-14.5 [facility] HospitalBmlzajrHDPJQAIJVD4749-22-37 08:06:00 Test Item Value Reference Range Interpretation Comments Platelet (test code = Platelet) 179 133-450 [facility] HospitalZhdhyjdUWGAQZXVDT3410-56-75 08:06:00 Test Item Value Reference Range Interpretation Comments MPV (test code = MPV) 7.5 7.4-10.4 [facility] HospitalYdaljwbYEQALGYNTN4108-14-66 08:06:00 Test Item Value Reference Range Interpretation Comments PT (test code = PT) 13.2 s 12.0-14.7 [facility] HospitalKrehblxNETSUUXRVB3718-78-98 08:06:00 Test Item Value Reference Range Interpretation Comments INR (test code = INR) 1.01 1 0.85-1.17 [facility] HospitalFnovbviEFGVTDXRCL3610-66-80 08:06:00 Test Item Value Reference Range Interpretation Comments PTT (test code = PTT) 29.1 s 22.9-35.8 [facility] HospitalKqgudiyCRCTJYUWVZ0674-93-05 08:06:00 Test Item Value Reference Range Interpretation Comments Segs (test code = Segs) 88.3 45.0-75.0 [facility] HospitalIqtgmhcRYTBIGCUCV3840-57-75 08:06:00 Test Item Value Reference Range Interpretation Comments Lymphocytes (test code = Lymphocytes) 7.7 20.0-40.0 [facility] HospitalJfroptuPAPVPRMDHR3220-15-63 08:06:00 Test Item Value Reference Range Interpretation Comments Monocytes (test code = Monocytes) 3.7 2.0-12.0 [facility] HospitalOysvrbcJSPUZBIPTO8833-88-20 08:06:00 Test Item Value Reference Range Interpretation Comments Basophils (test code = 0.3 See_Comment [Aut omated message] The Basophils) system which ge nerated this result tra nsmitted reference range : <=1.0. The reference r katie was not used to int erpret this result as normal/abnormal . [facility] HospitalBoohxqiUMLEQJDQXD5452-52-20 08:06:00 Test Item Value Reference Range Interpretation Comments Neutrophils # (test code = Neutrophils 9.9 1.5-8.1 #) [facility] HospitalNynlbfrIZZOLBTZNJ6565-18-02 08:06:00 Test Item Value Reference Range Interpretation Comments Lymphocytes # (test code = Lymphocytes 0.9 1.0-5.5 #) [facility] HospitalMfynbigMEKQHZJDXY0911-06-12 08:06:00 Test Item Value Reference Range Interpretation Comments Monocytes # (test code 0.4 See_Comment [Aut omated message] The = Monocytes #) system which generated this result tra nsmitted reference range : <=0.8. The reference r katie was not used to int erpret this result as normal/abnormal . [facility]2021-05-05 08:06:00 Test Item Value Reference Range Interpretation Comments Ca Ion WB (test code = Ca Ion WB) 1.08 1.05-1.25 [place] 959111-05-05 08:06:00 Test Item Value Reference Range Interpretation Comments Ca Norm WB (test code = Ca Norm WB) 1.12 1.05-1.25 [facility]2021-05-05 08:06:00 Test Item Value Reference Range Interpretation Comments Glucose Lvl (test code = Glucose Lvl) 112 70-99 [place] 918531-05-05 08:06:00 Test Item Value Reference Range Interpretation Comments BUN (test code = BUN) 21 7-22 [facility]2021-05-05 08:06:00 Test Item Value Reference Range Interpretation Comments Creatinine Lvl (test code = Creatinine 0.70 0.50-1.40 Lvl) [place] 918531-05-05 08:06:00 Test Item Value Reference Range Interpretation Comments Sodium Lvl (test code = Sodium Lvl) 139 135-145 [place] 918531-05-05 08:06:00 Test Item Value Reference Range Interpretation Comments Potassium Lvl (test code = Potassium 4.3 3.5-5.1 Lvl) [place] 918531-05-05 08:06:00 Test Item Value Reference Range Interpretation Comments Chloride Lvl (test code = Chloride Lvl) 105 95-109 [place] 918531-05-05 08:06:00 Test Item Value Reference Range Interpretation Comments CO2 (test code = CO2) 26 24-32 [place] 918531-05-05 08:06:00 Test Item Value Reference Range Interpretation Comments Calcium Lvl (test code = Calcium Lvl) 8.6 8.5-10.5 [place] 918531-05-05 08:06:00 Test Item Value Reference Range Interpretation Comments AGAP (test code = AGAP) 12.3 10.0-20.0 [place] 918531-05-05 08:06:00 Test Item Value Reference Range Interpretation Comments eGFR (test code = eGFR) 89 [facility]2021-05-05 08:06:00 Test Item Value Reference Range Interpretation Comments Magnesium Lvl (test code = Magnesium 2.2 1.8-2.4 Lvl) [place] 918531-05-05 08:06:00 Test Item Value Reference Range Interpretation Comments Phosphorus (test code = Phosphorus) 3.0 2.5-4.5 [place] 824581-05-05 08:06:00 Test Item Value Reference Range Interpretation Comments WBC X 10x3 (test code = WBC X 10x3) 11.2 3.7-10.4 [place] 824581-05-05 08:06:00 Test Item Value Reference Range Interpretation Comments RBC X 10x6 (test code = RBC X 10x6) 3.22 4.20-5.40 [place] 824581-05-05 08:06:00 Test Item Value Reference Range Interpretation Comments Hgb (test code = Hgb) 10.3 12.0-16.0 [place] [address]-05-05 08:06:00 Test Item Value Reference Range Interpretation Comments Hct (test code = Hct) 30.6 36.0-48.0 [place] [address]-05-05 08:06:00 Test Item Value Reference Range Interpretation Comments MCV (test code = MCV) 94.8 80.0-98.0 [facility] HospitalNlcgwbrVBCLHXUAJE6772-34-93 08:06:00 Test Item Value Reference Range Interpretation Comments MCH (test code = MCH) 31.9 pg 27.0-31.0 [facility] HospitalMwbtzwoQMCMJYCPQJ9932-41-44 08:06:00 Test Item Value Reference Range Interpretation Comments MCHC (test code = MCHC) 33.6 32.0-36.0 [facility] HospitalXlxqbacEKLACLBRPB8492-06-63 08:06:00 Test Item Value Reference Range Interpretation Comments RDW (test code = RDW) 12.7 11.5-14.5 [facility] HospitalVkzdtoyZRTKMOIMTN7956-85-22 08:06:00 Test Item Value Reference Range Interpretation Comments Platelet (test code = Platelet) 179 133-450 [facility] HospitalQcuylsvMMKZIUVGNW2902-51-45 08:06:00 Test Item Value Reference Range Interpretation Comments MPV (test code = MPV) 7.5 7.4-10.4 [facility] HospitalImdwkktZBAGAIFACR5941-51-90 08:06:00 Test Item Value Reference Range Interpretation Comments PT (test code = PT) 13.2 s 12.0-14.7 [facility] HospitalDjucmdfQNCQMXQLUB1980-54-01 08:06:00 Test Item Value Reference Range Interpretation Comments INR (test code = INR) 1.01 1 0.85-1.17 [facility] HospitalHnawubgPYVIZTEUGG0188-27-09 08:06:00 Test Item Value Reference Range Interpretation Comments PTT (test code = PTT) 29.1 s 22.9-35.8 [facility] HospitalUbuhqmiTFNSDAKWEN6241-83-63 08:06:00 Test Item Value Reference Range Interpretation Comments Segs (test code = Segs) 88.3 45.0-75.0 [facility] HospitalUsramywTADZTXPVNJ7915-66-12 08:06:00 Test Item Value Reference Range Interpretation Comments Lymphocytes (test code = Lymphocytes) 7.7 20.0-40.0 [facility] HospitalEkfnungNJPFARGZAL7428-43-62 08:06:00 Test Item Value Reference Range Interpretation Comments Monocytes (test code = Monocytes) 3.7 2.0-12.0 [facility] HospitalXmcjuudIIUECQLGLO7332-51-54 08:06:00 Test Item Value Reference Range Interpretation Comments Basophils (test code = 0.3 See_Comment [Aut omated message] The Basophils) system which ge nerated this result tra nsmitted reference range : <=1.0. The reference r katie was not used to int erpret this result as normal/abnormal . [place] 824581-05-05 08:06:00 Test Item Value Reference Range Interpretation Comments Neutrophils # (test code = Neutrophils 9.9 1.5-8.1 #) [facility] HospitalWbosufjNKNAUZPXVT9249-32-74 08:06:00 Test Item Value Reference Range Interpretation Comments Lymphocytes # (test code = Lymphocytes 0.9 1.0-5.5 #) [facility] HospitalPgmtxcvRKGZBWRQAH2066-38-16 08:06:00 Test Item Value Reference Range Interpretation Comments Monocytes # (test code 0.4 See_Comment [Aut omated message] The = Monocytes #) system which generated this result tra nsmitted reference range : <=0.8. The reference r katie was not used to int erpret this result as normal/abnormal . [facility]ATHY[facility]ID RYWWOEP1317-20-57 08:06:00 Test Item Value Reference Range Interpretation Comments Ca Ion WB (test code = Ca Ion WB) 1.08 1.05-1.25 [place] 959111-05-05 08:06:00 Test Item Value Reference Range Interpretation Comments Ca Norm WB (test code = Ca Norm WB) 1.12 1.05-1.25 [facility]2021-05-05 08:06:00 Test Item Value Reference Range Interpretation Comments Glucose Lvl (test code = Glucose Lvl) 112 70-99 [facility]2021-05-05 08:06:00 Test Item Value Reference Range Interpretation Comments BUN (test code = BUN) 21 7-22 [place] 918531-05-05 08:06:00 Test Item Value Reference Range Interpretation Comments Creatinine Lvl (test code = Creatinine 0.70 0.50-1.40 Lvl) [facility]2021-05-05 08:06:00 Test Item Value Reference Range Interpretation Comments Sodium Lvl (test code = Sodium Lvl) 139 135-145 [place] 918531-05-05 08:06:00 Test Item Value Reference Range Interpretation Comments Potassium Lvl (test code = Potassium 4.3 3.5-5.1 Lvl) [place] 918531-05-05 08:06:00 Test Item Value Reference Range Interpretation Comments Chloride Lvl (test code = Chloride Lvl) 105 95-109 [place] 918531-05-05 08:06:00 Test Item Value Reference Range Interpretation Comments CO2 (test code = CO2) 26 24-32 [place] 918531-05-05 08:06:00 Test Item Value Reference Range Interpretation Comments Calcium Lvl (test code = Calcium Lvl) 8.6 8.5-10.5 [place] 918531-05-05 08:06:00 Test Item Value Reference Range Interpretation Comments AGAP (test code = AGAP) 12.3 10.0-20.0 [place] 918531-05-05 08:06:00 Test Item Value Reference Range Interpretation Comments eGFR (test code = eGFR) 89 [place] 918531-05-05 08:06:00 Test Item Value Reference Range Interpretation Comments Magnesium Lvl (test code = Magnesium 2.2 1.8-2.4 Lvl) [place] 918531-05-05 08:06:00 Test Item Value Reference Range Interpretation Comments Phosphorus (test code = Phosphorus) 3.0 2.5-4.5 [place] 824581-05-05 08:06:00 Test Item Value Reference Range Interpretation Comments WBC X 10x3 (test code = WBC X 10x3) 11.2 3.7-10.4 [place] 824581-05-05 08:06:00 Test Item Value Reference Range Interpretation Comments RBC X 10x6 (test code = RBC X 10x6) 3.22 4.20-5.40 [place] 824581-05-05 08:06:00 Test Item Value Reference Range Interpretation Comments Hgb (test code = Hgb) 10.3 12.0-16.0 [place] 824581-05-05 08:06:00 Test Item Value Reference Range Interpretation Comments Hct (test code = Hct) 30.6 36.0-48.0 [place] 824581-05-05 08:06:00 Test Item Value Reference Range Interpretation Comments MCV (test code = MCV) 94.8 80.0-98.0 [facility] HospitalHrfuicfVAHEIWYQJJ2404-36-01 08:06:00 Test Item Value Reference Range Interpretation Comments MCH (test code = MCH) 31.9 pg 27.0-31.0 [facility] HospitalLgbttgnZONSCRNEWL0376-43-09 08:06:00 Test Item Value Reference Range Interpretation Comments MCHC (test code = MCHC) 33.6 32.0-36.0 [facility] HospitalIgmljiuVIAHDISYOE2025-00-83 08:06:00 Test Item Value Reference Range Interpretation Comments RDW (test code = RDW) 12.7 11.5-14.5 [facility] HospitalGxezubxPXNQGHHBRI8990-65-15 08:06:00 Test Item Value Reference Range Interpretation Comments Platelet (test code = Platelet) 179 133-450 [facility] HospitalFkulphpLMDRTVGKWW3680-42-21 08:06:00 Test Item Value Reference Range Interpretation Comments MPV (test code = MPV) 7.5 7.4-10.4 [facility] HospitalUimaobqXSLOPGMGYU5836-50-53 08:06:00 Test Item Value Reference Range Interpretation Comments PT (test code = PT) 13.2 s 12.0-14.7 [facility] HospitalUzmrsvpQCLBWEBWPE9534-22-87 08:06:00 Test Item Value Reference Range Interpretation Comments INR (test code = INR) 1.01 1 0.85-1.17 [facility] HospitalZkotwlpMBZBUTWMRZ2482-43-55 08:06:00 Test Item Value Reference Range Interpretation Comments PTT (test code = PTT) 29.1 s 22.9-35.8 [facility] HospitalYvwhftcFUSOAARCXF9536-91-42 08:06:00 Test Item Value Reference Range Interpretation Comments Segs (test code = Segs) 88.3 45.0-75.0 [facility] HospitalBlhnkaoIAYPXRZOAA3034-46-04 08:06:00 Test Item Value Reference Range Interpretation Comments Lymphocytes (test code = Lymphocytes) 7.7 20.0-40.0 [facility] HospitalQsadmlcFMIDVVIMRI2149-63-77 08:06:00 Test Item Value Reference Range Interpretation Comments Monocytes (test code = Monocytes) 3.7 2.0-12.0 [facility] HospitalJefddvcLYENFLXKUI0028-23-64 08:06:00 Test Item Value Reference Range Interpretation Comments Basophils (test code = 0.3 See_Comment [Aut omated message] The Basophils) system which ge nerated this result tra nsmitted reference range : <=1.0. The reference r katie was not used to int erpret this result as normal/abnormal . [place] 824581-05-05 08:06:00 Test Item Value Reference Range Interpretation Comments Neutrophils # (test code = Neutrophils 9.9 1.5-8.1 #) [place] 824581-05-05 08:06:00 Test Item Value Reference Range Interpretation Comments Lymphocytes # (test code = Lymphocytes 0.9 1.0-5.5 #) [place] 824581-05-05 08:06:00 Test Item Value Reference Range Interpretation Comments Monocytes # (test code 0.4 See_Comment [Aut omated message] The = Monocytes #) system which generated this result tra nsmitted reference range : <=0.8. The reference r katie was not used to int erpret this result as normal/abnormal . [place] 959111-05-05 08:06:00 Test Item Value Reference Range Interpretation Comments Ca Ion WB (test code = Ca Ion WB) 1.08 1.05-1.25 [place] [address]-05-05 08:06:00 Test Item Value Reference Range Interpretation Comments Ca Norm WB (test code = Ca Norm WB) 1.12 1.05-1.25 [place] 918531-05-05 08:06:00 Test Item Value Reference Range Interpretation Comments Glucose Lvl (test code = Glucose Lvl) 112 70-99 [place] 918531-05-05 08:06:00 Test Item Value Reference Range Interpretation Comments BUN (test code = BUN) 21 7-22 [place] 918531-05-05 08:06:00 Test Item Value Reference Range Interpretation Comments Creatinine Lvl (test code = Creatinine 0.70 0.50-1.40 Lvl) [place] 918531-05-05 08:06:00 Test Item Value Reference Range Interpretation Comments Sodium Lvl (test code = Sodium Lvl) 139 135-145 [place] 918531-05-05 08:06:00 Test Item Value Reference Range Interpretation Comments Potassium Lvl (test code = Potassium 4.3 3.5-5.1 Lvl) [place] 918531-05-05 08:06:00 Test Item Value Reference Range Interpretation Comments Chloride Lvl (test code = Chloride Lvl) 105 95-109 [place] 918531-05-05 08:06:00 Test Item Value Reference Range Interpretation Comments CO2 (test code = CO2) 26 24-32 [place] 918531-05-05 08:06:00 Test Item Value Reference Range Interpretation Comments Calcium Lvl (test code = Calcium Lvl) 8.6 8.5-10.5 [place] 918531-05-05 08:06:00 Test Item Value Reference Range Interpretation Comments AGAP (test code = AGAP) 12.3 10.0-20.0 [place] 918531-05-05 08:06:00 Test Item Value Reference Range Interpretation Comments eGFR (test code = eGFR) 89 [place] 918531-05-05 08:06:00 Test Item Value Reference Range Interpretation Comments Magnesium Lvl (test code = Magnesium 2.2 1.8-2.4 Lvl) [place] 918531-05-05 08:06:00 Test Item Value Reference Range Interpretation Comments Phosphorus (test code = Phosphorus) 3.0 2.5-4.5 [place] 824581-05-05 08:06:00 Test Item Value Reference Range Interpretation Comments WBC X 10x3 (test code = WBC X 10x3) 11.2 3.7-10.4 [place] 824581-05-05 08:06:00 Test Item Value Reference Range Interpretation Comments RBC X 10x6 (test code = RBC X 10x6) 3.22 4.20-5.40 [place] 824581-05-05 08:06:00 Test Item Value Reference Range Interpretation Comments Hgb (test code = Hgb) 10.3 12.0-16.0 [place] [address]-05-05 08:06:00 Test Item Value Reference Range Interpretation Comments Hct (test code = Hct) 30.6 36.0-48.0 [place] 824581-05-05 08:06:00 Test Item Value Reference Range Interpretation Comments MCV (test code = MCV) 94.8 80.0-98.0 [place] 824581-05-05 08:06:00 Test Item Value Reference Range Interpretation Comments MCH (test code = MCH) 31.9 pg 27.0-31.0 [facility] HospitalZaolvrlFYDEJMERWN9940-75-39 08:06:00 Test Item Value Reference Range Interpretation Comments MCHC (test code = MCHC) 33.6 32.0-36.0 [facility] HospitalNoyamrtZQUCQOAXWM9307-80-85 08:06:00 Test Item Value Reference Range Interpretation Comments RDW (test code = RDW) 12.7 11.5-14.5 [facility] HospitalItbrskgYWCIBLIRMK5604-81-87 08:06:00 Test Item Value Reference Range Interpretation Comments Platelet (test code = Platelet) 179 133-450 [facility] HospitalBsjsximAHXJFSSMBY3502-89-77 08:06:00 Test Item Value Reference Range Interpretation Comments MPV (test code = MPV) 7.5 7.4-10.4 [facility] HospitalUdlkrzbDFNGTYXGQJ9098-61-51 08:06:00 Test Item Value Reference Range Interpretation Comments PT (test code = PT) 13.2 s 12.0-14.7 [facility] HospitalBvzkodhTVUHCDAUCA2923-91-90 08:06:00 Test Item Value Reference Range Interpretation Comments INR (test code = INR) 1.01 1 0.85-1.17 [facility] HospitalYztmpxiWJUSSXNRVV6597-07-43 08:06:00 Test Item Value Reference Range Interpretation Comments PTT (test code = PTT) 29.1 s 22.9-35.8 [facility] HospitalTvqkklvDOIDJIBVIX4227-51-14 08:06:00 Test Item Value Reference Range Interpretation Comments Segs (test code = Segs) 88.3 45.0-75.0 [facility] HospitalZoznwwwEXTCILFIRD9144-85-73 08:06:00 Test Item Value Reference Range Interpretation Comments Lymphocytes (test code = Lymphocytes) 7.7 20.0-40.0 [facility] HospitalLtuwkyiKTBQGEFFPE3338-62-69 08:06:00 Test Item Value Reference Range Interpretation Comments Monocytes (test code = Monocytes) 3.7 2.0-12.0 [facility] HospitalYotmwwyFQXMNEANLV7281-11-93 08:06:00 Test Item Value Reference Range Interpretation Comments Basophils (test code = 0.3 See_Comment [Aut omated message] The Basophils) system which ge nerated this result tra nsmitted reference range : <=1.0. The reference r katie was not used to int erpret this result as normal/abnormal . [place] [address]-05-05 08:06:00 Test Item Value Reference Range Interpretation Comments Neutrophils # (test code = Neutrophils 9.9 1.5-8.1 #) [place] 824581-05-05 08:06:00 Test Item Value Reference Range Interpretation Comments Lymphocytes # (test code = Lymphocytes 0.9 1.0-5.5 #) [place] 824581-05-05 08:06:00 Test Item Value Reference Range Interpretation Comments Monocytes # (test code 0.4 See_Comment [Aut omated message] The = Monocytes #) system which generated this result tra nsmitted reference range : <=0.8. The reference r katie was not used to int erpret this result as normal/abnormal . [facility]DA[facility]0-78-57 08:06:00 Test Item Value Reference Range Interpretation Comments Ca Ion WB (test code = Ca Ion WB) 1.08 1.05-1.25 [place] 959111-05-05 08:06:00 Test Item Value Reference Range Interpretation Comments Ca Norm WB (test code = Ca Norm WB) 1.12 1.05-1.25 [place] 918531-05-04 17:52:00 Test Item Value Reference Range Interpretation Comments Magnesium Lvl (test code = Magnesium 2.1 1.8-2.4 Lvl) [place] 918531-05-04 17:52:00 Test Item Value Reference Range Interpretation Comments Phosphorus (test code = Phosphorus) 2.5 2.5-4.5 [place] 918531-05-04 17:52:00 Test Item Value Reference Range Interpretation Comments Glucose Lvl (test code = Glucose Lvl) 158 70-99 [place] 918531-05-04 17:52:00 Test Item Value Reference Range Interpretation Comments BUN (test code = BUN) 26 7-22 [place] 918531-05-04 17:52:00 Test Item Value Reference Range Interpretation Comments Creatinine Lvl (test code = Creatinine 0.90 0.50-1.40 Lvl) [place] 918531-05-04 17:52:00 Test Item Value Reference Range Interpretation Comments Sodium Lvl (test code = Sodium Lvl) 141 135-145 [place] 918531-05-04 17:52:00 Test Item Value Reference Range Interpretation Comments Potassium Lvl (test code = Potassium 4.1 3.5-5.1 Lvl) [address]05-04 17:52:00 Test Item Value Reference Range Interpretation Comments Chloride Lvl (test code = Chloride Lvl) 107 95-109 [address]05-04 17:52:00 Test Item Value Reference Range Interpretation Comments CO2 (test code = CO2) 29 24-32 [address]05-04 17:52:00 Test Item Value Reference Range Interpretation Comments Calcium Lvl (test code = Calcium Lvl) 8.0 8.5-10.[address]05-04 17:52:00 Test Item Value Reference Range Interpretation Comments AGAP (test code = AGAP) 9.1 10.0-20.0 [address]05-04 17:52:00 Test Item Value Reference Range Interpretation Comments eGFR (test code = eGFR) 66 [place] [address]-05-04 17:52:00 Test Item Value Reference Range Interpretation Comments PT (test code = PT) 14.8 s 12.0-14.7 [address]05-04 17:52:00 Test Item Value Reference Range Interpretation Comments INR (test code = INR) 1.18 1 0.85-1.17 [place] [address]-05-04 17:52:00 Test Item Value Reference Range Interpretation Comments PTT (test code = PTT) 30.8 s 22.9-35.8 [address]05-04 17:52:00 Test Item Value Reference Range Interpretation Comments Fibrinogen Lvl (test code = Fibrinogen 209 230-510 Lvl) [place] [address]-05-04 17:52:00 Test Item Value Reference Range Interpretation Comments Segs (test code = Segs) 76.6 45.0-75.0 [place] [address]-05-04 17:52:00 Test Item Value Reference Range Interpretation Comments Lymphocytes (test code = Lymphocytes) 17.6 20.0-40.0 [place] [address]-05-04 17:52:00 Test Item Value Reference Range Interpretation Comments Monocytes (test code = Monocytes) 2.4 2.0-12.0 [place] [address]-05-04 17:52:00 Test Item Value Reference Range Interpretation Comments Eosinophils (test code = 2.5 See_Comment [A utomated message] The Eosinophils) system which ge nerated this result tra nsmitted reference range : <=4.0. The reference r katie was not used to int erpret this result as normal/abnormal . [place] [address]-05-04 17:52:00 Test Item Value Reference Range Interpretation Comments Basophils (test code = 0.9 See_Comment [Aut omated message] The Basophils) system which ge nerated this result tra nsmitted reference range : <=1.0. The reference r katie was not used to int erpret this result as normal/abnormal . [address]05-04 17:52:00 Test Item Value Reference Range Interpretation Comments Neutrophils # (test code = Neutrophils 5.3 1.5-8.1 #) [address]05-04 17:52:00 Test Item Value Reference Range Interpretation Comments Lymphocytes # (test code = Lymphocytes 1.2 1.0-5.5 #) [place] [address]-05-04 17:52:00 Test Item Value Reference Range Interpretation Comments Monocytes # (test code 0.2 See_Comment [Aut omated message] The = Monocytes #) system which generated this result tra nsmitted reference range : <=0.8. The reference r katie was not used to int erpret this result as normal/abnormal . [place] [address]-05-04 17:52:00 Test Item Value Reference Range Interpretation Comments Eosinophils # (test code 0.2 See_Comment [A utomated message] The = Eosinophils #) system whic h generated this result tra nsmitted reference range : <=0.5. The reference r katie was not used to int erpret this result as normal/abnormal . [place] [address]-05-04 17:52:00 Test Item Value Reference Range Interpretation Comments Basophils # (test code 0.1 See_Comment [Aut omated message] The = Basophils #) system which generated this result tra nsmitted reference range : <=0.2. The reference r katie was not used to int erpret this result as normal/abnormal . [facility] HospitalJocezlvUMYLIKVAYM9568-63-42 17:52:00 Test Item Value Reference Range Interpretation Comments WBC X 10x3 (test code = WBC X 10x3) 6.9 3.7-10.4 [place] 824581-05-04 17:52:00 Test Item Value Reference Range Interpretation Comments RBC X 10x6 (test code = RBC X 10x6) 3.02 4.20-5.40 [place] 824581-05-04 17:52:00 Test Item Value Reference Range Interpretation Comments Hgb (test code = Hgb) 9.6 12.0-16.0 [place] [address]-05-04 17:52:00 Test Item Value Reference Range Interpretation Comments Hct (test code = Hct) 28.6 36.0-48.0 [place] [address]-05-04 17:52:00 Test Item Value Reference Range Interpretation Comments MCV (test code = MCV) 94.8 80.0-98.0 [place] [address]-05-04 17:52:00 Test Item Value Reference Range Interpretation Comments MCH (test code = MCH) 31.9 pg 27.0-31.0 [place] [address]-05-04 17:52:00 Test Item Value Reference Range Interpretation Comments MCHC (test code = MCHC) 33.7 32.0-36.0 [facility] HospitalBysqupcEFGIWUFYWI4230-19-17 17:52:00 Test Item Value Reference Range Interpretation Comments RDW (test code = RDW) 12.6 11.5-14.5 [place] [address]-05-04 17:52:00 Test Item Value Reference Range Interpretation Comments Platelet (test code = Platelet) 170 133-450 [facility] HospitalCtpiwavSVSICNBNEQ4689-99-27 17:52:00 Test Item Value Reference Range Interpretation Comments MPV (test code = MPV) 7.8 7.4-10.4 [place] [address]-05-04 17:52:00 Test Item Value Reference Range Interpretation Comments Trig (test code = Trig) 58 [place] 667631-05-04 17:52:00 Test Item Value Reference Range Interpretation Comments Chol (test code = Chol) 146 [place] 667631-05-04 17:52:00 Test Item Value Reference Range Interpretation Comments HDL (test code = HDL) 44 [facility] HospitalKhfinqaKIJORD6713-97-45 17:52:00 Test Item Value Reference Range Interpretation Comments CHD Risk (test code = CHD Risk) 3.32 1 3.90-5.80 [facility] HospitalXrfozqjUYCZAN7952-94-40 17:52:00 Test Item Value Reference Range Interpretation Comments LDL (Calculated) (test code = LDL 90 (Calculated)) [place] [address]-05-04 17:52:00 Test Item Value Reference Range Interpretation Comments VLDL (test code = VLDL) 12 1 [facility]ATH[facility] CIQZEOR5050-80-00 17:52:00 Test Item Value Reference Range Interpretation Comments Ca Ion WB (test code = Ca Ion WB) 1.03 1.05-1.25 [facility] YJWNKXW8966-99-55 17:52:00 Test Item Value Reference Range Interpretation Comments Ca Norm WB (test code = Ca Norm WB) 1.04 1.05-1.25 [place] 918531-05-04 17:52:00 Test Item Value Reference Range Interpretation Comments Magnesium Lvl (test code = Magnesium 2.1 1.8-2.4 Lvl) [facility]2021-05-04 17:52:00 Test Item Value Reference Range Interpretation Comments Phosphorus (test code = Phosphorus) 2.5 2.5-4.5 [facility]2021-05-04 17:52:00 Test Item Value Reference Range Interpretation Comments Glucose Lvl (test code = Glucose Lvl) 158 70-99 [place] 918531-05-04 17:52:00 Test Item Value Reference Range Interpretation Comments BUN (test code = BUN) 26 7-22 [place] 918531-05-04 17:52:00 Test Item Value Reference Range Interpretation Comments Creatinine Lvl (test code = Creatinine 0.90 0.50-1.40 Lvl) [place] 918531-05-04 17:52:00 Test Item Value Reference Range Interpretation Comments Sodium Lvl (test code = Sodium Lvl) 141 135-145 [facility]2021-05-04 17:52:00 Test Item Value Reference Range Interpretation Comments Potassium Lvl (test code = Potassium 4.1 3.5-5.1 Lvl) [place] 918531-05-04 17:52:00 Test Item Value Reference Range Interpretation Comments Chloride Lvl (test code = Chloride Lvl) 107 95-109 [address]05-04 17:52:00 Test Item Value Reference Range Interpretation Comments CO2 (test code = CO2) 29 24-32 [address]05-04 17:52:00 Test Item Value Reference Range Interpretation Comments Calcium Lvl (test code = Calcium Lvl) 8.0 8.5-10.5 [place] 918531-05-04 17:52:00 Test Item Value Reference Range Interpretation Comments AGAP (test code = AGAP) 9.1 10.0-20.0 [address]05-04 17:52:00 Test Item Value Reference Range Interpretation Comments eGFR (test code = eGFR) [address]05-04 17:52:00 Test Item Value Reference Range Interpretation Comments PT (test code = PT) 14.8 s 12.0-14.7 [address]05-04 17:52:00 Test Item Value Reference Range Interpretation Comments INR (test code = INR) 1.18 1 0.85-1.[address]05-04 17:52:00 Test Item Value Reference Range Interpretation Comments PTT (test code = PTT) 30.8 s 22.9-35.[address]05-04 17:52:00 Test Item Value Reference Range Interpretation Comments Fibrinogen Lvl (test code = Fibrinogen 209 230-510 Lvl) [place] [address]-05-04 17:52:00 Test Item Value Reference Range Interpretation Comments Segs (test code = Segs) 76.6 45.0-75.0 [place] [address]-05-04 17:52:00 Test Item Value Reference Range Interpretation Comments Lymphocytes (test code = Lymphocytes) 17.6 20.0-40.0 [place] [address]-05-04 17:52:00 Test Item Value Reference Range Interpretation Comments Monocytes (test code = Monocytes) 2.4 2.0-12.0 [place] [address]-05-04 17:52:00 Test Item Value Reference Range Interpretation Comments Eosinophils (test code = 2.5 See_Comment [A utomated message] The Eosinophils) system which ge nerated this result tra nsmitted reference range : <=4.0. The reference r katie was not used to int erpret this result as normal/abnormal . [facility] HospitalCwizdkyNGJCMFHGZA8324-40-02 17:52:00 Test Item Value Reference Range Interpretation Comments Basophils (test code = 0.9 See_Comment [Aut omated message] The Basophils) system which ge nerated this result tra nsmitted reference range : <=1.0. The reference r katie was not used to int erpret this result as normal/abnormal . [facility] HospitalWgxkpqwKYOGOWFAHF4893-56-25 17:52:00 Test Item Value Reference Range Interpretation Comments Neutrophils # (test code = Neutrophils 5.3 1.5-8.1 #) [place] 824581-05-04 17:52:00 Test Item Value Reference Range Interpretation Comments Lymphocytes # (test code = Lymphocytes 1.2 1.0-5.5 #) [place] 824581-05-04 17:52:00 Test Item Value Reference Range Interpretation Comments Monocytes # (test code 0.2 See_Comment [Aut omated message] The = Monocytes #) system which generated this result tra nsmitted reference range : <=0.8. The reference r katie was not used to int erpret this result as normal/abnormal . [facility] HospitalDulfkniJIZIRMJOSA9336-33-48 17:52:00 Test Item Value Reference Range Interpretation Comments Eosinophils # (test code 0.2 See_Comment [A utomated message] The = Eosinophils #) system [facility] generated this result tra nsmitted reference range : <=0.5. The reference r katie was not used to int erpret this result as normal/abnormal . [facility] HospitalHbsjjoiXVUXELVJUS8900-88-14 17:52:00 Test Item Value Reference Range Interpretation Comments Basophils # (test code 0.1 See_Comment [Aut omated message] The = Basophils #) system which generated this result tra nsmitted reference range : <=0.2. The reference r katie was not used to int erpret this result as normal/abnormal . [place] 824581-05-04 17:52:00 Test Item Value Reference Range Interpretation Comments WBC X 10x3 (test code = WBC X 10x3) 6.9 3.7-10.4 [facility] HospitalMpyndjbEQHPEQWQVZ5226-86-44 17:52:00 Test Item Value Reference Range Interpretation Comments RBC X 10x6 (test code = RBC X 10x6) 3.02 4.20-5.40 [facility] HospitalLhckpogTCRBPWOANH8442-55-97 17:52:00 Test Item Value Reference Range Interpretation Comments Hgb (test code = Hgb) 9.6 12.0-16.0 [facility] HospitalJekzetwVXCMYTAALA1686-11-05 17:52:00 Test Item Value Reference Range Interpretation Comments Hct (test code = Hct) 28.6 36.0-48.0 [facility] HospitalOcliwirRSWOVRTNAS8328-29-70 17:52:00 Test Item Value Reference Range Interpretation Comments MCV (test code = MCV) 94.8 80.0-98.0 [facility] HospitalXlxrmpsDXWYPBTZQB8688-19-54 17:52:00 Test Item Value Reference Range Interpretation Comments MCH (test code = MCH) 31.9 pg 27.0-31.0 [facility] HospitalPwpnmtwFNIKVFESGO2583-70-00 17:52:00 Test Item Value Reference Range Interpretation Comments MCHC (test code = MCHC) 33.7 32.0-36.0 [facility] HospitalQkrwerwCJLFDJQGRK0275-79-68 17:52:00 Test Item Value Reference Range Interpretation Comments RDW (test code = RDW) 12.6 11.5-14.5 [facility] HospitalXdvxgerRIEGPEXKTV7271-32-48 17:52:00 Test Item Value Reference Range Interpretation Comments Platelet (test code = Platelet) 170 133-450 [facility] HospitalDhgaccsVFPOAOULBL6234-64-30 17:52:00 Test Item Value Reference Range Interpretation Comments MPV (test code = MPV) 7.8 7.4-10.4 [place] [address]-05-04 17:52:00 Test Item Value Reference Range Interpretation Comments Trig (test code = Trig) 58 [facility] SystemZjacvkeOGEQGL4075-18-54 17:52:00 Test Item Value Reference Range Interpretation Comments Chol (test code = Chol) 146 [place] 667631-05-04 17:52:00 Test Item Value Reference Range Interpretation Comments HDL (test code = HDL) 44 [facility] SystemGmtqnimVDYSAX2617-10-82 17:52:00 Test Item Value Reference Range Interpretation Comments CHD Risk (test code = CHD Risk) 3.32 1 3.90-5.80 [facility] HospitalLfgzloyBJQZVE6322-68-56 17:52:00 Test Item Value Reference Range Interpretation Comments LDL (Calculated) (test code = LDL 90 (Calculated)) [facility] HospitalRnvuxjoSLNZMO6880-12-85 17:52:00 Test Item Value Reference Range Interpretation Comments VLDL (test code = VLDL) 12 1 [facility]ATHY[facility] UZFHMYZ0362-64-19 17:52:00 Test Item Value Reference Range Interpretation Comments Ca Ion WB (test code = Ca Ion WB) 1.03 1.05-1.25 [facility] ZACFFEC4566-10-50 17:52:00 Test Item Value Reference Range Interpretation Comments Ca Norm WB (test code = Ca Norm WB) 1.04 1.05-1.25 [facility]2021-05-04 17:52:00 Test Item Value Reference Range Interpretation Comments Magnesium Lvl (test code = Magnesium 2.1 1.8-2.4 Lvl) [facility]2021-05-04 17:52:00 Test Item Value Reference Range Interpretation Comments Phosphorus (test code = Phosphorus) 2.5 2.5-4.5 [facility]2021-05-04 17:52:00 Test Item Value Reference Range Interpretation Comments Glucose Lvl (test code = Glucose Lvl) 158 70-99 [facility]2021-05-04 17:52:00 Test Item Value Reference Range Interpretation Comments BUN (test code = BUN) 26 7-22 [facility]2021-05-04 17:52:00 Test Item Value Reference Range Interpretation Comments Creatinine Lvl (test code = Creatinine 0.90 0.50-1.40 Lvl) [facility]2021-05-04 17:52:00 Test Item Value Reference Range Interpretation Comments Sodium Lvl (test code = Sodium Lvl) 141 135-145 [facility]2021-05-04 17:52:00 Test Item Value Reference Range Interpretation Comments Potassium Lvl (test code = Potassium 4.1 3.5-5.1 Lvl) [facility]2021-05-04 17:52:00 Test Item Value Reference Range Interpretation Comments Chloride Lvl (test code = Chloride Lvl) 107 95-109 [place] [address]-05-04 17:52:00 Test Item Value Reference Range Interpretation Comments CO2 (test code = CO2) 29 24-[address]05-04 17:52:00 Test Item Value Reference Range Interpretation Comments Calcium Lvl (test code = Calcium Lvl) 8.0 8.5-10.[address]05-04 17:52:00 Test Item Value Reference Range Interpretation Comments AGAP (test code = AGAP) 9.1 10.0-20.[address]05-04 17:52:00 Test Item Value Reference Range Interpretation Comments eGFR (test code = eGFR) [address]05-04 17:52:00 Test Item Value Reference Range Interpretation Comments PT (test code = PT) 14.8 s 12.0-14.[address]05-04 17:52:00 Test Item Value Reference Range Interpretation Comments INR (test code = INR) 1.18 1 0.85-1.17 [place] [address]-05-04 17:52:00 Test Item Value Reference Range Interpretation Comments PTT (test code = PTT) 30.8 s 22.9-35.[address]05-04 17:52:00 Test Item Value Reference Range Interpretation Comments Fibrinogen Lvl (test code = Fibrinogen 209 230-510 Lvl) [place] [address]-05-04 17:52:00 Test Item Value Reference Range Interpretation Comments Segs (test code = Segs) 76.6 45.0-75.0 [place] [address]-05-04 17:52:00 Test Item Value Reference Range Interpretation Comments Lymphocytes (test code = Lymphocytes) 17.6 20.0-40.0 [place] [address]-05-04 17:52:00 Test Item Value Reference Range Interpretation Comments Monocytes (test code = Monocytes) 2.4 2.0-12.0 [place] [address]-05-04 17:52:00 Test Item Value Reference Range Interpretation Comments Eosinophils (test code = 2.5 See_Comment [A utomated message] The Eosinophils) system which ge nerated this result tra nsmitted reference range : <=4.0. The reference r katie was not used to int erpret this result as normal/abnormal . [facility] HospitalQexxuxoTVSLGEZPIE1588-31-29 17:52:00 Test Item Value Reference Range Interpretation Comments Basophils (test code = 0.9 See_Comment [Aut omated message] The Basophils) system which ge nerated this result tra nsmitted reference range : <=1.0. The reference r katie was not used to int erpret this result as normal/abnormal . [facility] HospitalKyljofzFSMTNMAJZV4371-79-82 17:52:00 Test Item Value Reference Range Interpretation Comments Neutrophils # (test code = Neutrophils 5.3 1.5-8.1 #) [facility] HospitalIqzlmxrCXDVCYKSOI8262-21-58 17:52:00 Test Item Value Reference Range Interpretation Comments Lymphocytes # (test code = Lymphocytes 1.2 1.0-5.5 #) [place] 824581-05-04 17:52:00 Test Item Value Reference Range Interpretation Comments Monocytes # (test code 0.2 See_Comment [Aut omated message] The = Monocytes #) system which generated this result tra nsmitted reference range : <=0.8. The reference r katie was not used to int erpret this result as normal/abnormal . [facility] HospitalOctsnroJICRWQBBZB1488-73-73 17:52:00 Test Item Value Reference Range Interpretation Comments Eosinophils # (test code 0.2 See_Comment [A utomated message] The = Eosinophils #) system whic h generated this result tra nsmitted reference range : <=0.5. The reference r katie was not used to int erpret this result as normal/abnormal . [facility] HospitalOmhutoxOPGJJRWZFO4680-56-09 17:52:00 Test Item Value Reference Range Interpretation Comments Basophils # (test code 0.1 See_Comment [Aut omated message] The = Basophils #) system which generated this result tra nsmitted reference range : <=0.2. The reference r katie was not used to int erpret this result as normal/abnormal . [facility] HospitalDqffqizFAUDDRYXWL1874-88-20 17:52:00 Test Item Value Reference Range Interpretation Comments WBC X 10x3 (test code = WBC X 10x3) 6.9 3.7-10.4 [place] 824581-05-04 17:52:00 Test Item Value Reference Range Interpretation Comments RBC X 10x6 (test code = RBC X 10x6) 3.02 4.20-5.40 [facility] HospitalWiplaauQZAGWPICYT0406-33-22 17:52:00 Test Item Value Reference Range Interpretation Comments Hgb (test code = Hgb) 9.6 12.0-16.0 [place] [address]-05-04 17:52:00 Test Item Value Reference Range Interpretation Comments Hct (test code = Hct) 28.6 36.0-48.0 [place] 824581-05-04 17:52:00 Test Item Value Reference Range Interpretation Comments MCV (test code = MCV) 94.8 80.0-98.0 [place] [address]-05-04 17:52:00 Test Item Value Reference Range Interpretation Comments MCH (test code = MCH) 31.9 pg 27.0-31.0 [place] 824581-05-04 17:52:00 Test Item Value Reference Range Interpretation Comments MCHC (test code = MCHC) 33.7 32.0-36.0 [facility] HospitalFhniojdSKNTYOMWBN9805-68-21 17:52:00 Test Item Value Reference Range Interpretation Comments RDW (test code = RDW) 12.6 11.5-14.5 [facility] HospitalJyntjwzUMVJUDADYC9282-95-02 17:52:00 Test Item Value Reference Range Interpretation Comments Platelet (test code = Platelet) 170 133-450 [facility] HospitalSaeppqdNOYJHXFRKZ8712-63-03 17:52:00 Test Item Value Reference Range Interpretation Comments MPV (test code = MPV) 7.8 7.4-10.4 [place] 667631-05-04 17:52:00 Test Item Value Reference Range Interpretation Comments Trig (test code = Trig) 58 [facility] SystemBmoosnaEPFXZL8797-54-44 17:52:00 Test Item Value Reference Range Interpretation Comments Chol (test code = Chol) 146 [facility] HospitalHinmyutINYCRN3649-13-15 17:52:00 Test Item Value Reference Range Interpretation Comments HDL (test code = HDL) 44 [facility] HospitalKaxaicyALTYFS6182-09-68 17:52:00 Test Item Value Reference Range Interpretation Comments CHD Risk (test code = CHD Risk) 3.32 1 3.90-5.80 [facility] SystemIsmqmcaAHVEIU5993-21-59 17:52:00 Test Item Value Reference Range Interpretation Comments LDL (Calculated) (test code = LDL 90 (Calculated)) [facility] HospitalOmxwdccAZULKB3951-04-96 17:52:00 Test Item Value Reference Range Interpretation Comments VLDL (test code = VLDL) [address] [facility] HospitalPARATHYROID ZXCFTXC4369-50-30 17:52:00 Test Item Value Reference Range Interpretation Comments Ca Ion WB (test code = Ca Ion WB) 1.03 1.05-1.25 [facility] HospitalATHYROID MAPORMT6658-83-98 17:52:00 Test Item Value Reference Range Interpretation Comments Ca Norm WB (test code = Ca Norm WB) 1.04 1.05-1.25 [facility]2021-05-04 17:52:00 Test Item Value Reference Range Interpretation Comments Magnesium Lvl (test code = Magnesium 2.1 1.8-2.4 Lvl) [facility]2021-05-04 17:52:00 Test Item Value Reference Range Interpretation Comments Phosphorus (test code = Phosphorus) 2.5 2.5-4.5 [facility]2021-05-04 17:52:00 Test Item Value Reference Range Interpretation Comments Glucose Lvl (test code = Glucose Lvl) 158 70-99 [facility]2021-05-04 17:52:00 Test Item Value Reference Range Interpretation Comments BUN (test code = BUN) 26 7-22 [facility]2021-05-04 17:52:00 Test Item Value Reference Range Interpretation Comments Creatinine Lvl (test code = Creatinine 0.90 0.50-1.40 Lvl) [facility]2021-05-04 17:52:00 Test Item Value Reference Range Interpretation Comments Sodium Lvl (test code = Sodium Lvl) 141 135-145 [place] 918531-05-04 17:52:00 Test Item Value Reference Range Interpretation Comments Potassium Lvl (test code = Potassium 4.1 3.5-5.1 Lvl) [facility]2021-05-04 17:52:00 Test Item Value Reference Range Interpretation Comments Chloride Lvl (test code = Chloride Lvl) 107 95-109 [facility]2021-05-04 17:52:00 Test Item Value Reference Range Interpretation Comments CO2 (test code = CO2) 29 24-32 [place] 918531-05-04 17:52:00 Test Item Value Reference Range Interpretation Comments Calcium Lvl (test code = Calcium Lvl) 8.0 8.5-10.5 [facility] HospitalImpacto Tecnologias [id number] 17:52:00 Test Item Value Reference Range Interpretation Comments AGAP (test code = AGAP) 9.1 10.0-20.0 [facility] HospitalImpact[facility] Tecnologias [id number] 17:52:00 Test Item Value Reference Range Interpretation Comments eGFR (test code = eGFR) 66 [facility] HospitalIrsamudRBYCGOZYCC5320-61-60 17:52:00 Test Item Value Reference Range Interpretation Comments PT (test code = PT) 14.8 s 12.0-14.7 [place] 824581-05-04 17:52:00 Test Item Value Reference Range Interpretation Comments INR (test code = INR) 1.18 1 0.85-1.17 [place] 824581-05-04 17:52:00 Test Item Value Reference Range Interpretation Comments PTT (test code = PTT) 30.8 s 22.9-35.8 [place] 824581-05-04 17:52:00 Test Item Value Reference Range Interpretation Comments Fibrinogen Lvl (test code = Fibrinogen 209 230-510 Lvl) [facility] HospitalOkeapruZQRRBBZQLH7812-49-12 17:52:00 Test Item Value Reference Range Interpretation Comments Segs (test code = Segs) 76.6 45.0-75.0 [place] 824581-05-04 17:52:00 Test Item Value Reference Range Interpretation Comments Lymphocytes (test code = Lymphocytes) 17.6 20.0-40.0 [place] 824581-05-04 17:52:00 Test Item Value Reference Range Interpretation Comments Monocytes (test code = Monocytes) 2.4 2.0-12.0 [place] [address]-05-04 17:52:00 Test Item Value Reference Range Interpretation Comments Eosinophils (test code = 2.5 See_Comment [A utomated message] The Eosinophils) system which ge nerated this result tra nsmitted reference range : <=4.0. The reference r katie was not used to int erpret this result as normal/abnormal . [facility] HospitalJxdchvhTIUPUFFVAA6014-97-04 17:52:00 Test Item Value Reference Range Interpretation Comments Basophils (test code = 0.9 See_Comment [Aut omated message] The Basophils) system which ge nerated this result tra nsmitted reference range : <=1.0. The reference r katie was not used to int erpret this result as normal/abnormal . [facility] HospitalHipvxpcUJIFZLCWJI5514-65-52 17:52:00 Test Item Value Reference Range Interpretation Comments Neutrophils # (test code = Neutrophils 5.3 1.5-8.1 #) [facility] HospitalFunfkwrPGJOJWIXEA9124-23-51 17:52:00 Test Item Value Reference Range Interpretation Comments Lymphocytes # (test code = Lymphocytes 1.2 1.0-5.5 #) [place] [address]-05-04 17:52:00 Test Item Value Reference Range Interpretation Comments Monocytes # (test code 0.2 See_Comment [Aut omated message] The = Monocytes #) system which generated this result tra nsmitted reference range : <=0.8. The reference r katie was not used to int erpret this result as normal/abnormal . [facility] HospitalSnhulpyXZTSLDIUUN2620-89-14 17:52:00 Test Item Value Reference Range Interpretation Comments Eosinophils # (test code 0.2 See_Comment [A utomated message] The = Eosinophils #) system whic h generated this result tra nsmitted reference range : <=0.5. The reference r katie was not used to int erpret this result as normal/abnormal . [facility] HospitalVreortuKMWBBXCPZE8378-15-46 17:52:00 Test Item Value Reference Range Interpretation Comments Basophils # (test code 0.1 See_Comment [Aut omated message] The = Basophils #) system which generated this result tra nsmitted reference range : <=0.2. The reference r katie was not used to int erpret this result as normal/abnormal . [facility] HospitalVyaycpvAPLKQYMMCR8881-65-51 17:52:00 Test Item Value Reference Range Interpretation Comments WBC X 10x3 (test code = WBC X 10x3) 6.9 3.7-10.4 [place] 824581-05-04 17:52:00 Test Item Value Reference Range Interpretation Comments RBC X 10x6 (test code = RBC X 10x6) 3.02 4.20-5.40 [place] 824581-05-04 17:52:00 Test Item Value Reference Range Interpretation Comments Hgb (test code = Hgb) 9.6 12.0-16.0 [facility] HospitalJcsqhpxLLTYDMLHHB0725-67-41 17:52:00 Test Item Value Reference Range Interpretation Comments Hct (test code = Hct) 28.6 36.0-48.0 [place] 824581-05-04 17:52:00 Test Item Value Reference Range Interpretation Comments MCV (test code = MCV) 94.8 80.0-98.0 [place] [address]-05-04 17:52:00 Test Item Value Reference Range Interpretation Comments MCH (test code = MCH) 31.9 pg 27.0-31.0 [place] [address]-05-04 17:52:00 Test Item Value Reference Range Interpretation Comments MCHC (test code = MCHC) 33.7 32.0-36.0 [place] 824581-05-04 17:52:00 Test Item Value Reference Range Interpretation Comments RDW (test code = RDW) 12.6 11.5-14.5 [place] [address]-05-04 17:52:00 Test Item Value Reference Range Interpretation Comments Platelet (test code = Platelet) 170 133-450 [facility] HospitalXgbqhgjLELLHIFSMJ9690-93-21 17:52:00 Test Item Value Reference Range Interpretation Comments MPV (test code = MPV) 7.8 7.4-10.4 [place] [address]-05-04 17:52:00 Test Item Value Reference Range Interpretation Comments Trig (test code = Trig) 58 [place] [address]-05-04 17:52:00 Test Item Value Reference Range Interpretation Comments Chol (test code = Chol) 146 [place] [address]-05-04 17:52:00 Test Item Value Reference Range Interpretation Comments HDL (test code = HDL) 44 [place] [address]-05-04 17:52:00 Test Item Value Reference Range Interpretation Comments CHD Risk (test code = CHD Risk) 3.32 1 3.90-5.80 [place] [address]-05-04 17:52:00 Test Item Value Reference Range Interpretation Comments LDL (Calculated) (test code = LDL 90 (Calculated)) [place] 667631-05-04 17:52:00 Test Item Value Reference Range Interpretation Comments VLDL (test code = VLDL) 12 1 [place] 959111-05-04 17:52:00 Test Item Value Reference Range Interpretation Comments Ca Ion WB (test code = Ca Ion WB) 1.03 1.05-1.25 [facility] [id number] 17:52:00 Test Item Value Reference Range Interpretation Comments Ca Norm WB (test code = Ca Norm WB) 1.04 1.05-1.25 [place] 918531-05-04 17:52:00 Test Item Value Reference Range Interpretation Comments Magnesium Lvl (test code = Magnesium 2.1 1.8-2.4 Lvl) [place] 918531-05-04 17:52:00 Test Item Value Reference Range Interpretation Comments Phosphorus (test code = Phosphorus) 2.5 2.5-4.5 [facility]2021-05-04 17:52:00 Test Item Value Reference Range Interpretation Comments Glucose Lvl (test code = Glucose Lvl) 158 70-99 [place] 918531-05-04 17:52:00 Test Item Value Reference Range Interpretation Comments BUN (test code = BUN) 26 7-22 [place] 918531-05-04 17:52:00 Test Item Value Reference Range Interpretation Comments Creatinine Lvl (test code = Creatinine 0.90 0.50-1.40 Lvl) [facility]2021-05-04 17:52:00 Test Item Value Reference Range Interpretation Comments Sodium Lvl (test code = Sodium Lvl) 141 135-145 [facility]2021-05-04 17:52:00 Test Item Value Reference Range Interpretation Comments Potassium Lvl (test code = Potassium 4.1 3.5-5.1 Lvl) [place] 918531-05-04 17:52:00 Test Item Value Reference Range Interpretation Comments Chloride Lvl (test code = Chloride Lvl) 107 95-109 [place] 918531-05-04 17:52:00 Test Item Value Reference Range Interpretation Comments CO2 (test code = CO2) 29 24-32 [place] 918531-05-04 17:52:00 Test Item Value Reference Range Interpretation Comments Calcium Lvl (test code = Calcium Lvl) 8.0 8.5-10.5 [place] 918531-05-04 17:52:00 Test Item Value Reference Range Interpretation Comments AGAP (test code = AGAP) 9.1 10.0-20.[address]05-04 17:52:00 Test Item Value Reference Range Interpretation Comments eGFR (test code = eGFR) 66 [place] [address]-05-04 17:52:00 Test Item Value Reference Range Interpretation Comments PT (test code = PT) 14.8 s 12.0-14.7 [place] [address]-05-04 17:52:00 Test Item Value Reference Range Interpretation Comments INR (test code = INR) 1.18 1 0.85-1.[address]05-04 17:52:00 Test Item Value Reference Range Interpretation Comments PTT (test code = PTT) 30.8 s 22.9-35.[address]05-04 17:52:00 Test Item Value Reference Range Interpretation Comments Fibrinogen Lvl (test code = Fibrinogen 209 230-510 Lvl) [place] [address]-05-04 17:52:00 Test Item Value Reference Range Interpretation Comments Segs (test code = Segs) 76.6 45.0-75.0 [place] [address]-05-04 17:52:00 Test Item Value Reference Range Interpretation Comments Lymphocytes (test code = Lymphocytes) 17.6 20.0-40.0 [place] [address]-05-04 17:52:00 Test Item Value Reference Range Interpretation Comments Monocytes (test code = Monocytes) 2.4 2.0-12.0 [place] [address]-05-04 17:52:00 Test Item Value Reference Range Interpretation Comments Eosinophils (test code = 2.5 See_Comment [A utomated message] The Eosinophils) system which ge nerated this result tra nsmitted reference range : <=4.0. The reference r katie was not used to int erpret this result as normal/abnormal . [place] [address]-05-04 17:52:00 Test Item Value Reference Range Interpretation Comments Basophils (test code = 0.9 See_Comment [Aut omated message] The Basophils) system which ge nerated this result tra nsmitted reference range : <=1.0. The reference r katie was not used to int erpret this result as normal/abnormal . [place] [address]-05-04 17:52:00 Test Item Value Reference Range Interpretation Comments Neutrophils # (test code = Neutrophils 5.3 1.5-8.1 #) [place] 824581-05-04 17:52:00 Test Item Value Reference Range Interpretation Comments Lymphocytes # (test code = Lymphocytes 1.2 1.0-5.5 #) [place] [address]-05-04 17:52:00 Test Item Value Reference Range Interpretation Comments Monocytes # (test code 0.2 See_Comment [Aut omated message] The = Monocytes #) system which generated this result tra nsmitted reference range : <=0.8. The reference r katie was not used to int erpret this result as normal/abnormal . [place] [address]-05-04 17:52:00 Test Item Value Reference Range Interpretation Comments Eosinophils # (test code 0.2 See_Comment [A utomated message] The = Eosinophils #) system whic h generated this result tra nsmitted reference range : <=0.5. The reference r aktie was not used to int erpret this result as normal/abnormal . [place] [address]-05-04 17:52:00 Test Item Value Reference Range Interpretation Comments Basophils # (test code 0.1 See_Comment [Aut omated message] The = Basophils #) system which generated this result tra nsmitted reference range : <=0.2. The reference r katie was not used to int erpret this result as normal/abnormal . [facility] HospitalImkolhmKKDHAMMWPY8525-13-62 17:52:00 Test Item Value Reference Range Interpretation Comments WBC X 10x3 (test code = WBC X 10x3) 6.9 3.7-10.4 [place] [address]-05-04 17:52:00 Test Item Value Reference Range Interpretation Comments RBC X 10x6 (test code = RBC X 10x6) 3.02 4.20-5.40 [place] [address]-05-04 17:52:00 Test Item Value Reference Range Interpretation Comments Hgb (test code = Hgb) 9.6 12.0-16.0 [place] 824581-05-04 17:52:00 Test Item Value Reference Range Interpretation Comments Hct (test code = Hct) 28.6 36.0-48.0 [facility]fq[facility]zoqIJANOCALAJ4850-98-[facility] 17:52:00 Test Item Value Reference Range Interpretation Comments MCV (test code = MCV) 94.8 80.0-98.0 [facility] HospitalYpomcrwGHYFWKXYNL4665-26-56 17:52:00 Test Item Value Reference Range Interpretation Comments MCH (test code = MCH) 31.9 pg 27.0-31.0 [facility] HospitalSgatticIWYQTMCWGH5302-34-69 17:52:00 Test Item Value Reference Range Interpretation Comments MCHC (test code = MCHC) 33.7 32.0-36.0 [facility] HospitalXtufsibQVBAMJJDZA2053-27-86 17:52:00 Test Item Value Reference Range Interpretation Comments RDW (test code = RDW) 12.6 11.5-14.5 [facility] HospitalHaajvayLONCFRDEVT6680-92-33 17:52:00 Test Item Value Reference Range Interpretation Comments Platelet (test code = Platelet) 170 133-450 [facility]ZrvlrqhKKHUNTEBAL7615-03-50 17:52:00 Test Item Value Reference Range Interpretation Comments MPV (test code = MPV) 7.8 7.4-10.4 [facility] HospitalLdrkoifZUGTGC7156-62-62 17:52:00 Test Item Value Reference Range Interpretation Comments Trig (test code = Trig) 58 [facility] HospitalFljiggaALRYGO8803-56-26 17:52:00 Test Item Value Reference Range Interpretation Comments Chol (test code = Chol) 146 [facility] HospitalEmbshfdQCFWMF2347-16-44 17:52:00 Test Item Value Reference Range Interpretation Comments HDL (test code = HDL) 44 [facility]hhjpneNDIDXQ6782-31-92 17:52:00 Test Item Value Reference Range Interpretation Comments CHD Risk (test code = CHD Risk) 3.32 1 3.90-5.80 [facility] HospitalShrsajcELNFPZ2094-61-89 17:52:00 Test Item Value Reference Range Interpretation Comments LDL (Calculated) (test code = LDL 90 (Calculated)) [facility] HospitalCvnmdkwEQKSSK2484-57-10 17:52:00 Test Item Value Reference Range Interpretation Comments VLDL (test code = VLDL) [address] [facility] HospitalPARATHYROID [id number] 17:52:00 Test Item Value Reference Range Interpretation Comments Ca Ion WB (test code = Ca Ion WB) 1.03 1.05-1.25 [facility] HospitalPARATHYROID [id number] 17:52:00 Test Item Value Reference Range Interpretation Comments Ca Norm WB (test code = Ca Norm WB) 1.04 1.05-1.25 [facility]2021-05-04 17:52:00 Test Item Value Reference Range Interpretation Comments Magnesium Lvl (test code = Magnesium 2.1 1.8-2.4 Lvl) [facility]2021-05-04 17:52:00 Test Item Value Reference Range Interpretation Comments Phosphorus (test code = Phosphorus) 2.5 2.5-4.5 [facility]2021-05-04 17:52:00 Test Item Value Reference Range Interpretation Comments Glucose Lvl (test code = Glucose Lvl) 158 70-99 [facility]2021-05-04 17:52:00 Test Item Value Reference Range Interpretation Comments BUN (test code = BUN) 26 7-22 [facility]2021-05-04 17:52:00 Test Item Value Reference Range Interpretation Comments Creatinine Lvl (test code = Creatinine 0.90 0.50-1.40 Lvl) [facility]2021-05-04 17:52:00 Test Item Value Reference Range Interpretation Comments Sodium Lvl (test code = Sodium Lvl) 141 135-145 [facility]2021-05-04 17:52:00 Test Item Value Reference Range Interpretation Comments Potassium Lvl (test code = Potassium 4.1 3.5-5.1 Lvl) [facility]2021-05-04 17:52:00 Test Item Value Reference Range Interpretation Comments Chloride Lvl (test code = Chloride Lvl) 107 95-109 [place] 918531-05-04 17:52:00 Test Item Value Reference Range Interpretation Comments CO2 (test code = CO2) 29 24-32 [facility]2021-05-04 17:52:00 Test Item Value Reference Range Interpretation Comments Calcium Lvl (test code = Calcium Lvl) 8.0 8.5-10.5 [facility]2021-05-04 17:52:00 Test Item Value Reference Range Interpretation Comments AGAP (test code = AGAP) 9.1 10.0-20.0 [place] 918531-05-04 17:52:00 Test Item Value Reference Range Interpretation Comments eGFR (test code = eGFR) 66 [place] 824581-05-04 17:52:00 Test Item Value Reference Range Interpretation Comments PT (test code = PT) 14.8 s 12.0-14.7 [place] [address]-05-04 17:52:00 Test Item Value Reference Range Interpretation Comments INR (test code = INR) 1.18 1 0.85-1.17 [place] [address]-05-04 17:52:00 Test Item Value Reference Range Interpretation Comments PTT (test code = PTT) 30.8 s 22.9-35.8 [place] [address]-05-04 17:52:00 Test Item Value Reference Range Interpretation Comments Fibrinogen Lvl (test code = Fibrinogen 209 230-510 Lvl) [facility] HospitalPleznxkEZGIDFYRHD6144-47-11 17:52:00 Test Item Value Reference Range Interpretation Comments Segs (test code = Segs) 76.6 45.0-75.0 [place] [address]-05-04 17:52:00 Test Item Value Reference Range Interpretation Comments Lymphocytes (test code = Lymphocytes) 17.6 20.0-40.0 [place] [address]-05-04 17:52:00 Test Item Value Reference Range Interpretation Comments Monocytes (test code = Monocytes) 2.4 2.0-12.0 [place] [address]-05-04 17:52:00 Test Item Value Reference Range Interpretation Comments Eosinophils (test code = 2.5 See_Comment [A utomated message] The Eosinophils) system which ge nerated this result tra nsmitted reference range : <=4.0. The reference r katie was not used to int erpret this result as normal/abnormal . [place] [address]-05-04 17:52:00 Test Item Value Reference Range Interpretation Comments Basophils (test code = 0.9 See_Comment [Aut omated message] The Basophils) system which ge nerated this result tra nsmitted reference range : <=1.0. The reference r katie was not used to int erpret this result as normal/abnormal . [place] 824581-05-04 17:52:00 Test Item Value Reference Range Interpretation Comments Neutrophils # (test code = Neutrophils 5.3 1.5-8.1 #) [place] 824581-05-04 17:52:00 Test Item Value Reference Range Interpretation Comments Lymphocytes # (test code = Lymphocytes 1.2 1.0-5.5 #) [place] 824581-05-04 17:52:00 Test Item Value Reference Range Interpretation Comments Monocytes # (test code 0.2 See_Comment [Aut omated message] The = Monocytes #) system which generated this result tra nsmitted reference range : <=0.8. The reference r katie was not used to int erpret this result as normal/abnormal . [place] [address]-05-04 17:52:00 Test Item Value Reference Range Interpretation Comments Eosinophils # (test code 0.2 See_Comment [A utomated message] The = Eosinophils #) system whic h generated this result tra nsmitted reference range : <=0.5. The reference r katie was not used to int erpret this result as normal/abnormal . [place] [address]-05-04 17:52:00 Test Item Value Reference Range Interpretation Comments Basophils # (test code 0.1 See_Comment [Aut omated message] The = Basophils #) system which generated this result tra nsmitted reference range : <=0.2. The reference r katie was not used to int erpret this result as normal/abnormal . [place] 824581-05-04 17:52:00 Test Item Value Reference Range Interpretation Comments WBC X 10x3 (test code = WBC X 10x3) 6.9 3.7-10.4 [place] [address]-05-04 17:52:00 Test Item Value Reference Range Interpretation Comments RBC X 10x6 (test code = RBC X 10x6) 3.02 4.20-5.40 [place] [address]-05-04 17:52:00 Test Item Value Reference Range Interpretation Comments Hgb (test code = Hgb) 9.6 12.0-16.0 [place] [address]-05-04 17:52:00 Test Item Value Reference Range Interpretation Comments Hct (test code = Hct) 28.6 36.0-48.0 [place] 824581-05-04 17:52:00 Test Item Value Reference Range Interpretation Comments MCV (test code = MCV) 94.8 80.0-98.0 [facility] HospitalJuicglyUGJWBEEQJO2261-00-76 17:52:00 Test Item Value Reference Range Interpretation Comments MCH (test code = MCH) 31.9 pg 27.0-31.0 [facility] HospitalZzalegdFGTCSXGYDO4516-82-32 17:52:00 Test Item Value Reference Range Interpretation Comments MCHC (test code = MCHC) 33.7 32.0-36.0 [facility] HospitalSelzafjXFXLHYAZMJ4039-80-96 17:52:00 Test Item Value Reference Range Interpretation Comments RDW (test code = RDW) 12.6 11.5-14.5 [facility] HospitalXeelkvnXMDQKLRLCI4021-17-67 17:52:00 Test Item Value Reference Range Interpretation Comments Platelet (test code = Platelet) 170 133-450 [facility] HospitalZjzpjlqJBGCYEBNKM6853-73-33 17:52:00 Test Item Value Reference Range Interpretation Comments MPV (test code = MPV) 7.8 7.4-10.4 [facility] HospitalAxdhquzJINZSA8139-58-12 17:52:00 Test Item Value Reference Range Interpretation Comments Trig (test code = Trig) 58 [facility] HospitalHoicrfbEGRMRX0380-97-79 17:52:00 Test Item Value Reference Range Interpretation Comments Chol (test code = Chol) 146 [facility] HospitalKtrncmgYMQRET5254-92-57 17:52:00 Test Item Value Reference Range Interpretation Comments HDL (test code = HDL) 44 [facility] HospitalCvdushyPZXETC5478-15-56 17:52:00 Test Item Value Reference Range Interpretation Comments CHD Risk (test code = CHD Risk) 3.32 1 3.90-5.80 [facility]PiynsbgPFYBGG1196-11-22 17:52:00 Test Item Value Reference Range Interpretation Comments LDL (Calculated) (test code = LDL 90 (Calculated)) [facility] HospitalCpgxcosNUVEGA2146-92-23 17:52:00 Test Item Value Reference Range Interpretation Comments VLDL (test code = VLDL) 12 1 [facility] ArlingtonannPARATHYROID [id number] 17:52:00 Test Item Value Reference Range Interpretation Comments Ca Ion WB (test code = Ca Ion WB) 1.03 1.05-1.25 [facility]PAR[facility]YROID [id number] 17:52:00 Test Item Value Reference Range Interpretation Comments Ca Norm WB (test code = Ca Norm WB) 1.04 1.05-1.25 [facility]:SUSC:PT:ISOLATE:ORDQN:[id number] 19:50:00 Test Item Value Reference Range Interpretation Comments Culture: Urine (test >100,000 CFU/mL code = Culture: Escherichia coli Urine) [facility]:SUSC:PT:ISOLATE:ORDQN:[id number] 19:50:00 Test Item Value Reference Range Interpretation Comments Escherichia coli (test code Escherichia coli = Escherichia coli) [facility]: [id number] 19:50:00 Test Item Value Reference Range Interpretation Comments Culture: Urine (test >100,000 CFU/mL code = Culture: Escherichia coli , Urine) Sensitivity Pending [facility]:SUSC:PT:ISOLATE:ORDQN:[id number] 19:50:00 Test Item Value Reference Range Interpretation Comments Culture: Urine (test >100,000 CFU/mL code = Culture: Escherichia coli Urine) [facility]:SUSC:PT:ISOLATE:ORDQN:[id number] 19:50:00 Test Item Value Reference Range Interpretation Comments Escherichia coli (test code Escherichia coli = Escherichia coli) [facility]: [id number] 19:50:00 Test Item Value Reference Range Interpretation Comments Culture: Urine (test >100,000 CFU/mL code = Culture: Escherichia coli , Urine) Sensitivity Pending [facility]:SUSC:PT:ISOLATE:ORDQN:[id number] 19:50:00 Test Item Value Reference Range Interpretation Comments Culture: Urine (test >100,000 CFU/mL code = Culture: Escherichia coli Urine) [facility]:SUSC:PT:ISOLATE:ORDQN:[id number] 19:50:00 Test Item Value Reference Range Interpretation Comments Escherichia coli (test code Escherichia coli = Escherichia coli) [facility]: [id number] 19:50:00 Test Item Value Reference Range Interpretation Comments Culture: Urine (test >100,000 CFU/mL code = Culture: Escherichia coli , Urine) Sensitivity Pending [facility]:SUSC:PT:ISOLATE:ORDQN:[id number] 19:50:00 Test Item Value Reference Range Interpretation Comments Culture: Urine (test >100,000 CFU/mL code = Culture: Escherichia coli Urine) [facility]:JESICAC:PT:ISOLATE:ORDQN:[id number] 19:50:00 Test Item Value Reference Range Interpretation Comments Escherichia coli (test code Escherichia coli = Escherichia coli) [facility]: [id number] 19:50:00 Test Item Value Reference Range Interpretation Comments Culture: Urine (test >100,000 CFU/mL code = Culture: Escherichia coli , Urine) Sensitivity Pending [facility]:ORDQN:[id number] 19:50:00 Test Item Value Reference Range Interpretation Comments Culture: Urine (test >100,000 CFU/mL code = Culture: Escherichia coli Urine) [facility]ATE:ORDQN:[id number] 19:50:00 Test Item Value Reference Range Interpretation Comments Escherichia coli (test code Escherichia coli = Escherichia coli) [facility]: [id number] 19:50:00 Test Item Value Reference Range Interpretation Comments Culture: Urine (test >100,000 CFU/mL code = Culture: Escherichia coli , Urine) Sensitivity Pending [facility]ATE:ORDQN:[id number] 19:50:00 Test Item Value Reference Range Interpretation Comments Culture: Urine (test >100,000 CFU/mL code = Culture: Escherichia coli Urine) [facility]ATE:ORDQN:[id number] 19:50:00 Test Item Value Reference Range Interpretation Comments Escherichia coli (test code Escherichia coli = Escherichia coli) [facility]: [id number] 19:50:00 Test Item Value Reference Range Interpretation Comments Culture: Urine (test >100,000 CFU/mL code = Culture: Escherichia coli , Urine) Sensitivity Pending [facility] HospitalBACTERIAL - [id number] 18:18:00 Test Item Value Reference Range Interpretation Comments MRSA by PCR (test Negative (10/24/20 1:18 code = MRSA by PCR) PM) [facility] [id number] 18:18:00 Test Item Value Reference Range Interpretation Comments ABO/Rh (test code = ABO/Rh) A POS [facility] [id number] 18:18:00 Test Item Value Reference Range Interpretation Comments Antibody Scrn (test Negative (10/24/20 1:18 code = Antibody Scrn) PM) [facility]NztdgopSCBLXPZHWB8104-62-39 18:18:00 Test Item Value Reference Range Interpretation Comments Coronavirus (COVID-19) Not Detected (10/24/20 LUIZ (test code = 1:18 PM) Coronavirus (COVID-19) LUIZ) [facility] HospitalReality JockeyKINDR[facility] [id number] 18:18:00 Test Item Value Reference Range Interpretation Comments MRSA by PCR (test Negative (10/24/20 1:18 code = MRSA by PCR) PM) [facility] [id number] 18:18:00 Test Item Value Reference Range Interpretation Comments ABO/Rh (test code = ABO/Rh) A POS [facility] [id number] 18:18:00 Test Item Value Reference Range Interpretation Comments Antibody Scrn (test Negative (10/24/20 1:18 code = Antibody Scrn) PM) [facility] CenterFwrszitRMGLTLHWHR6203-31-58 18:18:00 Test Item Value Reference Range Interpretation Comments Coronavirus (COVID-19) Not Detected (10/24/20 LUIZ (test code = 1:18 PM) Coronavirus (COVID-19) LUIZ) [facility] HospitalReality JockeyCTERIAL [id number] 18:18:00 Test Item Value Reference Range Interpretation Comments MRSA by PCR (test Negative (10/24/20 1:18 code = MRSA by PCR) PM) [facility] [id number] 18:18:00 Test Item Value Reference Range Interpretation Comments ABO/Rh (test code = ABO/Rh) A POS [facility] [id number] 18:18:00 Test Item Value Reference Range Interpretation Comments Antibody Scrn (test Negative (10/24/20 1:18 code = Antibody Scrn) PM) [facility] CenterXbjjwlcAAHEMVXLLU3853-11-26 18:18:00 Test Item Value Reference Range Interpretation Comments Coronavirus (COVID-19) Not Detected (10/24/20 LUIZ (test code = 1:18 PM) Coronavirus (COVID-19) LUIZ) [facility] [id number] 18:18:00 Test Item Value Reference Range Interpretation Comments MRSA by PCR (test Negative (10/24/20 1:18 code = MRSA by PCR) PM) [facility] [id number] 18:18:00 Test Item Value Reference Range Interpretation Comments ABO/Rh (test code = ABO/Rh) A POS [facility] [id number] 18:18:00 Test Item Value Reference Range Interpretation Comments Antibody Scrn (test Negative (10/24/20 1:18 code = Antibody Scrn) PM) [facility] CenterWtvwmtoQPRXKULJXO3963-54-90 18:18:00 Test Item Value Reference Range Interpretation Comments Coronavirus (COVID-19) Not Detected (10/24/20 LUIZ (test code = 1:18 PM) Coronavirus (COVID-19) LUIZ) [facility] [id number] 18:18:00 Test Item Value Reference Range Interpretation Comments MRSA by PCR (test Negative (10/24/20 1:18 code = MRSA by PCR) PM) [facility] [id number] 18:18:00 Test Item Value Reference Range Interpretation Comments ABO/Rh (test code = ABO/Rh) A POS [facility] [id number] 18:18:00 Test Item Value Reference Range Interpretation Comments Antibody Scrn (test Negative (10/24/20 1:18 code = Antibody Scrn) PM) [facility] CenterBjjsjwiWONJJGFKZU1885-65-22 18:18:00 Test Item Value Reference Range Interpretation Comments Coronavirus (COVID-19) Not Detected (10/24/20 LUIZ (test code = 1:18 PM) Coronavirus (COVID-19) LUIZ) [facility] [id number] 18:18:00 Test Item Value Reference Range Interpretation Comments MRSA by PCR (test Negative (10/24/20 1:18 code = MRSA by PCR) PM) [facility] [id number] 18:18:00 Test Item Value Reference Range Interpretation Comments ABO/Rh (test code = ABO/Rh) A POS [facility] [employer] [id number] 18:18:00 Test Item Value Reference Range Interpretation Comments Antibody Scrn (test Negative (10/24/20 1:18 code = Antibody Scrn) PM) [facility]XielqtbYNSGCZQJIP0495-06-67 18:18:00 Test Item Value Reference Range Interpretation Comments Coronavirus (COVID-19) Not Detected (10/24/20 LUIZ (test code = 1:18 PM) Coronavirus (COVID-19) LUIZ) [facility] [employer] [id number] 17:47:00 Test Item Value Reference Range Interpretation Comments RBC product (test code Product available = RBC product) (10/24/20 12:47 PM) [facility] [employer] [id number] 17:47:00 Test Item Value Reference Range Interpretation Comments Glucose Lvl (test code = Glucose Lvl) 110 70-[address] [facility] [place] [id number] 17:47:00 Test Item Value Reference Range Interpretation Comments BUN (test code = BUN) 42 7-[address] [facility] [employer]2021-04-30 17:47:00 Test Item Value Reference Range Interpretation Comments Creatinine Lvl (test code = Creatinine 1.00 0.50-1.40 Lvl) [employer]2021-04-30 17:47:00 Test Item Value Reference Range Interpretation Comments Sodium Lvl (test code = Sodium Lvl) 139 135-[address] [facility] [place] [id number] 17:47:00 Test Item Value Reference Range Interpretation Comments Potassium Lvl (test code = Potassium 4.2 3.5-5.1 Lvl) [employer]2021-04-30 17:47:00 Test Item Value Reference Range Interpretation Comments Chloride Lvl (test code = Chloride Lvl) 103 95-109 [employer]2021-04-30 17:47:00 Test Item Value Reference Range Interpretation Comments CO2 (test code = CO2) 28 24-[address] [facility] [place] [id number] 17:47:00 Test Item Value Reference Range Interpretation Comments Calcium Lvl (test code = Calcium Lvl) 9.6 8.5-10.[address] [facility] [place] [id number] 17:47:00 Test Item Value Reference Range Interpretation Comments AGAP (test code = AGAP) 12.2 10.0-20.0 [facility]2021-04-30 17:47:00 Test Item Value Reference Range Interpretation Comments eGFR (test code = eGFR) 58 [facility] HospitalFrdlkpsJABDNOVABA2690-41-05 17:47:00 Test Item Value Reference Range Interpretation Comments Segs (test code = Segs) 61.5 45.0-75.0 [place] 824581-04-30 17:47:00 Test Item Value Reference Range Interpretation Comments Lymphocytes (test code = Lymphocytes) 26.7 20.0-40.0 [place] 824581-04-30 17:47:00 Test Item Value Reference Range Interpretation Comments Monocytes (test code = Monocytes) 7.3 2.0-12.0 [facility] Hos[id number] 17:47:00 Test Item Value Reference Range Interpretation Comments Eosinophils (test code = 3.1 See_Comment [A utomated message] The Eosinophils) system which ge nerated this result tra nsmitted reference range : <=4.0. The reference r katie was not used to int erpret this result as normal/abnormal . [place] 824581-04-30 17:47:00 Test Item Value Reference Range Interpretation Comments Basophils (test code = 1.4 See_Comment [Aut omated message] The Basophils) system which ge nerated this result tra nsmitted reference range : <=1.0. The reference r katie was not used to int erpret this result as normal/abnormal . [facility] HospitalSymeclvORFDZEDDVD2180-58-75 17:47:00 Test Item Value Reference Range Interpretation Comments Neutrophils # (test code = Neutrophils 4.1 1.5-8.1 #) [place] 824581-04-30 17:47:00 Test Item Value Reference Range Interpretation Comments Lymphocytes # (test code = Lymphocytes 1.8 1.0-5.5 #) [place] 824581-04-30 17:47:00 Test Item Value Reference Range Interpretation Comments Monocytes # (test code 0.5 See_Comment [Aut omated message] The = Monocytes #) system which generated this result tra nsmitted reference range : <=0.8. The reference r katie was not used to int erpret this result as normal/abnormal . [facility] HospitalGglagvwKGXUGNYJMJ4452-04-62 17:47:00 Test Item Value Reference Range Interpretation Comments Eosinophils # (test code 0.2 See_Comment [A utomated message] The = Eosinophils #) system whic h generated this result tra nsmitted reference range : <=0.5. The reference r katie was not used to int erpret this result as normal/abnormal . [facility] Hos[id number] 17:47:00 Test Item Value Reference Range Interpretation Comments Basophils # (test code 0.1 See_Comment [Aut omated message] The = Basophils #) system which generated this result tra nsmitted reference range : <=0.2. The reference r ktaie was not used to int erpret this result as normal/abnormal . [facility] HospitalIckhownIDUHGTTPLW1526-79-38 17:47:00 Test Item Value Reference Range Interpretation Comments WBC X 10x3 (test code = WBC X 10x3) 6.6 3.7-10.4 [place] 824581-04-30 17:47:00 Test Item Value Reference Range Interpretation Comments RBC X 10x6 (test code = RBC X 10x6) 3.46 4.20-5.40 [place] 824581-04-30 17:47:00 Test Item Value Reference Range Interpretation Comments Hgb (test code = Hgb) 11.0 12.0-16.0 [place] 824581-04-30 17:47:00 Test Item Value Reference Range Interpretation Comments Hct (test code = Hct) 32.7 36.0-48.0 [place] 824581-04-30 17:47:00 Test Item Value Reference Range Interpretation Comments MCV (test code = MCV) 94.6 80.0-98.0 [place] 824581-04-30 17:47:00 Test Item Value Reference Range Interpretation Comments MCH (test code = MCH) 31.8 pg 27.0-31.0 [facility] HospitalQohijskCGAGOAJEKV4300-75-56 17:47:00 Test Item Value Reference Range Interpretation Comments MCHC (test code = MCHC) 33.7 32.0-36.0 [place] 824581-04-30 17:47:00 Test Item Value Reference Range Interpretation Comments RDW (test code = RDW) 12.4 11.5-14.5 [facility] HospitalWsscqybWNMQDQTVSV0816-53-07 17:47:00 Test Item Value Reference Range Interpretation Comments Platelet (test code = Platelet) 201 133-450 [facility] HospitalEgpxthsXYHQZAAFCA5571-51-48 17:47:00 Test Item Value Reference Range Interpretation Comments MPV (test code = MPV) 7.9 7.4-10.4 [facility] HospitalVzrndtqODGYWRXWAE7075-84-30 17:47:00 Test Item Value Reference Range Interpretation Comments PT (test code = PT) 13.5 s 12.0-14.7 [facility] HospitalUxiefgzQZAUWQCURZ5581-17-45 17:47:00 Test Item Value Reference Range Interpretation Comments INR (test code = INR) 1.04 1 0.85-1.17 [place] 824581-04-30 17:47:00 Test Item Value Reference Range Interpretation Comments PTT (test code = PTT) 27.3 s 22.9-35.8 [facility] AND [id number] 17:47:00 Test Item Value Reference Range Interpretation Comments UA Turbidity (test code Slight *ABN*(10/24/20 = UA Turbidity) 12:47 PM) [facility] AND [id number] 17:47:00 Test Item Value Reference Range Interpretation Comments UA Spec Grav (test code = UA Spec 1.012 1 Grav) [facility] [facility] AND [id number] 17:47:00 Test Item Value Reference Range Interpretation Comments UA pH (test code = UA pH) 6.0 1 5.0-8.0 [facility] AND [id number] 17:47:00 Test Item Value Reference Range Interpretation Comments UA Protein (test code = UA Negative mg/dL Protein) [facility] AND [id number] 17:47:00 Test Item Value Reference Range Interpretation Comments UA Glucose (test code = UA Negative mg/dL Glucose) [facility] AND [id number] 17:47:00 Test Item Value Reference Range Interpretation Comments UA Ketones (test code = UA Negative mg/dL Ketones) [facility] AND [id number] 17:47:00 Test Item Value Reference Range Interpretation Comments UA Bili (test code = Negative *NA*(10/24/20 UA Bili) 12:47 PM) [facility] [id number] 17:47:00 Test Item Value Reference Range Interpretation Comments UA Blood (test code = Negative (10/24/20 12:47 [facility] Blood) PM) [facility] [id number] 17:47:00 Test Item Value Reference Range Interpretation Comments UA Nitrite (test code Positive *ABN*(10/24/20 = UA Nitrite) 12:47 PM) [facility] [id number] 17:47:00 Test Item Value Reference Range Interpretation Comments UA Leuk Est (test code Large *ABN*(10/24/20 = UA Leuk Est) 12:47 PM) [facility] [id number] 17:47:00 Test Item Value Reference Range Interpretation Comments UA Sq Epi (test code = UA Sq Occasional /LPF Epi) [facility] AND [id number] 17:47:00 Test Item Value Reference Range Interpretation Comments UA WBC (test code = 70 See_Comment [Automa matteo message] The UA WBC) system which ge nerated this result transmit matteo reference range : <=5. The reference range was not used to interpr et this result as miesha l/abnormal. [facility] AND [id number] 17:47:00 Test Item Value Reference Range Interpretation Comments UA RBC (test code = 1 See_Comment [Automa matteo message] The UA RBC) system which ge nerated this result transmit matteo reference range : <=2. The reference range was not used to interpr et this result as miesha l/abnormal. [facility] [id number] 17:47:00 Test Item Value Reference Range Interpretation Comments UA Bacteria (test code = UA Many /HPF Bacteria) [facility] AND [id number] 17:47:00 Test Item Value Reference Range Interpretation Comments UA Color (test code = UA Color) [facility] AND [id number] 17:47:00 Test Item Value Reference Range Interpretation Comments UA Urobilinogen (test code = UA no gt 0.1-1.0 Urobilinogen) [facility] [id number] 17:47:00 Test Item Value Reference Range Interpretation Comments RBC product (test code Product available = RBC product) (4/30/21 12:47 PM) [place] 918531-04-30 17:47:00 Test Item Value Reference Range Interpretation Comments Glucose Lvl (test code = Glucose Lvl) 110 70-99 [place] 918531-04-30 17:47:00 Test Item Value Reference Range Interpretation Comments BUN (test code = BUN) 42 7-22 [place] 918531-04-30 17:47:00 Test Item Value Reference Range Interpretation Comments Creatinine Lvl (test code = Creatinine 1.00 0.50-1.40 Lvl) [place] 918531-04-30 17:47:00 Test Item Value Reference Range Interpretation Comments Sodium Lvl (test code = Sodium Lvl) 139 135-145 [place] 918531-04-30 17:47:00 Test Item Value Reference Range Interpretation Comments Potassium Lvl (test code = Potassium 4.2 3.5-5.1 Lvl) [place] 918531-04-30 17:47:00 Test Item Value Reference Range Interpretation Comments Chloride Lvl (test code = Chloride Lvl) 103 95-109 [place] 918531-04-30 17:47:00 Test Item Value Reference Range Interpretation Comments CO2 (test code = CO2) 28 24-32 [place] 918531-04-30 17:47:00 Test Item Value Reference Range Interpretation Comments Calcium Lvl (test code = Calcium Lvl) 9.6 8.5-10.5 [place] 918531-04-30 17:47:00 Test Item Value Reference Range Interpretation Comments AGAP (test code = AGAP) 12.2 10.0-20.0 [place] 918531-04-30 17:47:00 Test Item Value Reference Range Interpretation Comments eGFR (test code = eGFR) 58 [place] 824581-04-30 17:47:00 Test Item Value Reference Range Interpretation Comments Segs (test code = Segs) 61.5 45.0-75.0 [place] 824581-04-30 17:47:00 Test Item Value Reference Range Interpretation Comments Lymphocytes (test code = Lymphocytes) 26.7 20.0-40.0 [place] 824581-04-30 17:47:00 Test Item Value Reference Range Interpretation Comments Monocytes (test code = Monocytes) 7.3 2.0-12.0 [place] [address]-04-30 17:47:00 Test Item Value Reference Range Interpretation Comments Eosinophils (test code = 3.1 See_Comment [A utomated message] The Eosinophils) system which ge nerated this result tra nsmitted reference range : <=4.0. The reference r katie was not used to int erpret this result as normal/abnormal . [place] [address]-04-30 17:47:00 Test Item Value Reference Range Interpretation Comments Basophils (test code = 1.4 See_Comment [Aut omated message] The Basophils) system which ge nerated this result tra nsmitted reference range : <=1.0. The reference r katie was not used to int erpret this result as normal/abnormal . [address]04-30 17:47:00 Test Item Value Reference Range Interpretation Comments Neutrophils # (test code = Neutrophils 4.1 1.5-8.1 #) [place] 824581-04-30 17:47:00 Test Item Value Reference Range Interpretation Comments Lymphocytes # (test code = Lymphocytes 1.8 1.0-5.5 #) [place] [address]-04-30 17:47:00 Test Item Value Reference Range Interpretation Comments Monocytes # (test code 0.5 See_Comment [Aut omated message] The = Monocytes #) system which generated this result tra nsmitted reference range : <=0.8. The reference r katie was not used to int erpret this result as normal/abnormal . [place] 824581-04-30 17:47:00 Test Item Value Reference Range Interpretation Comments Eosinophils # (test code 0.2 See_Comment [A utomated message] The = Eosinophils #) system whic h generated this result tra nsmitted reference range : <=0.5. The reference r katie was not used to int erpret this result as normal/abnormal . [place] [address]-04-30 17:47:00 Test Item Value Reference Range Interpretation Comments Basophils # (test code 0.1 See_Comment [Aut omated message] The = Basophils #) system which generated this result tra nsmitted reference range : <=0.2. The reference r katie was not used to int erpret this result as normal/abnormal . [id number] 17:47:00 Test Item Value Reference Range Interpretation Comments WBC X 10x3 (test code = WBC X 10x3) 6.6 3.7-10.4 [place] 824581-04-30 17:47:00 Test Item Value Reference Range Interpretation Comments RBC X 10x6 (test code = RBC X 10x6) 3.46 4.20-5.40 [place] 824581-04-30 17:47:00 Test Item Value Reference Range Interpretation Comments Hgb (test code = Hgb) 11.0 12.0-16.0 [place] 824581-04-30 17:47:00 Test Item Value Reference Range Interpretation Comments Hct (test code = Hct) 32.7 36.0-48.0 [place] 824581-04-30 17:47:00 Test Item Value Reference Range Interpretation Comments MCV (test code = MCV) 94.6 80.0-98.0 [facility] H[id number] 17:47:00 Test Item Value Reference Range Interpretation Comments MCH (test code = MCH) 31.8 pg 27.0-31.0 [facility] Hospit[id number] 17:47:00 Test Item Value Reference Range Interpretation Comments MCHC (test code = MCHC) 33.7 32.0-36.0 [facility] HospitalJucajecPAQMRLUBWV5907-48-98 17:47:00 Test Item Value Reference Range Interpretation Comments RDW (test code = RDW) 12.4 11.5-14.5 [facility] Ho[id number] 17:47:00 Test Item Value Reference Range Interpretation Comments Platelet (test code = Platelet) 201 133-450 [facility] HospitalYcylaogGTQORJQZET3282-10-84 17:47:00 Test Item Value Reference Range Interpretation Comments MPV (test code = MPV) 7.9 7.4-10.4 [facility] HospitalPawrexmNZLLJLRZVL8170-25-29 17:47:00 Test Item Value Reference Range Interpretation Comments PT (test code = PT) 13.5 s 12.0-14.7 [facility] HospitalGkwlmqrGNLWZQBRRP7816-94-45 17:47:00 Test Item Value Reference Range Interpretation Comments INR (test code = INR) 1.04 1 0.85-1.17 [facility] HospitalCvmstsgRFXEKRIPSY0322-74-91 17:47:00 Test Item Value Reference Range Interpretation Comments PTT (test code = PTT) 27.3 s 22.9-35.8 [facility] AND [id number] 17:47:00 Test Item Value Reference Range Interpretation Comments UA Turbidity (test code Slight *ABN*(10/24/20 = UA Turbidity) 12:47 PM) [facility] AND [id number] 17:47:00 Test Item Value Reference Range Interpretation Comments UA Spec Grav (test code = UA Spec 1.012 1 Grav) [facility] AND [id number] 17:47:00 Test Item Value Reference Range Interpretation Comments UA pH (test code = UA pH) 6.0 1 5.0-8.0 [facility] AND [id number] 17:47:00 Test Item Value Reference Range Interpretation Comments UA Protein (test code = UA Negative mg/dL Protein) [facility] AND [id number] 17:47:00 Test Item Value Reference Range Interpretation Comments UA Glucose (test code = UA Negative mg/dL Glucose) [facility] AND [id number] 17:47:00 Test Item Value Reference Range Interpretation Comments UA Ketones (test code = UA Negative mg/dL Ketones) [facility] AND [id number] 17:47:00 Test Item Value Reference Range Interpretation Comments UA Bili (test code = Negative *NA*(10/24/20 UA Bili) 12:47 PM) [facility] AND [id number] 17:47:00 Test Item Value Reference Range Interpretation Comments UA Blood (test code = Negative (10/24/20 12:47 UA Blood) PM) [facility] AND [id number] 17:47:00 Test Item Value Reference Range Interpretation Comments UA Nitrite (test code Positive *ABN*(10/24/20 = UA Nitrite) 12:47 PM) [facility] AND [id number] 17:47:00 Test Item Value Reference Range Interpretation Comments UA Leuk Est (test code Large *ABN*(10/24/20 = UA Leuk Est) 12:47 PM) [facility] AND [id number] 17:47:00 Test Item Value Reference Range Interpretation Comments UA Sq Epi (test code = UA Sq Occasional /LPF Epi) [facility] AND [id number] 17:47:00 Test Item Value Reference Range Interpretation Comments UA WBC (test code = 70 See_Comment [Automa matteo message] The UA WBC) system which ge nerated this result transmit matteo reference range : <=5. The reference range was not used to interpr et this result as miesha l/abnormal. [facility] AND [id number] 17:47:00 Test Item Value Reference Range Interpretation Comments UA RBC (test code = 1 See_Comment [Automa matteo message] The UA RBC) system which ge nerated this result transmit matteo reference range : <=2. The reference range was not used to interpr et this result as miesha l/abnormal. [facility] AND [id number] 17:47:00 Test Item Value Reference Range Interpretation Comments UA Bacteria (test code = UA Many /HPF Bacteria) [facility] AND [id number] 17:47:00 Test Item Value Reference Range Interpretation Comments UA Color (test code = UA Color) Ltyellow [facility] AND [id number] 17:47:00 Test Item Value Reference Range Interpretation Comments UA Urobilinogen (test code = UA no gt 0.1-1.0 Urobilinogen) [facility]Turn[facility] [id number] 17:47:00 Test Item Value Reference Range Interpretation Comments RBC product (test code Product available = RBC product) (10/24/20 12:47 PM) [facility] [place] [id number] 17:47:00 Test Item Value Reference Range Interpretation Comments Glucose Lvl (test code = Glucose Lvl) 110 70-[address] [facility] [place] [id number] 17:47:00 Test Item Value Reference Range Interpretation Comments BUN (test code = BUN) 42 7-22 [facility] [id number] 17:47:00 Test Item Value Reference Range Interpretation Comments Creatinine Lvl (test code = Creatinine 1.00 0.50-1.40 Lvl) [facility] [place] [id number] 17:47:00 Test Item Value Reference Range Interpretation Comments Sodium Lvl (test code = Sodium Lvl) 139 135-145 [place] 918531-04-30 17:47:00 Test Item Value Reference Range Interpretation Comments Potassium Lvl (test code = Potassium 4.2 3.5-5.1 Lvl) [place] 918531-04-30 17:47:00 Test Item Value Reference Range Interpretation Comments Chloride Lvl (test code = Chloride Lvl) 103 95-109 [place] 918531-04-30 17:47:00 Test Item Value Reference Range Interpretation Comments CO2 (test code = CO2) 28 24-32 [place] 918531-04-30 17:47:00 Test Item Value Reference Range Interpretation Comments Calcium Lvl (test code = Calcium Lvl) 9.6 8.5-10.5 [place] 918531-04-30 17:47:00 Test Item Value Reference Range Interpretation Comments AGAP (test code = AGAP) 12.2 10.0-20.0 [place] 918531-04-30 17:47:00 Test Item Value Reference Range Interpretation Comments eGFR (test code = eGFR) 58 [place] 824581-04-30 17:47:00 Test Item Value Reference Range Interpretation Comments Segs (test code = Segs) 61.5 45.0-75.0 [place] [address]-04-30 17:47:00 Test Item Value Reference Range Interpretation Comments Lymphocytes (test code = Lymphocytes) 26.7 20.0-40.0 [place] [address]-04-30 17:47:00 Test Item Value Reference Range Interpretation Comments Monocytes (test code = Monocytes) 7.3 2.0-12.0 [address]04-30 17:47:00 Test Item Value Reference Range Interpretation Comments Eosinophils (test code = 3.1 See_Comment [A utomated message] The Eosinophils) system which ge nerated this result tra nsmitted reference range : <=4.0. The reference r katie was not used to int erpret this result as normal/abnormal . [place] [address]-04-30 17:47:00 Test Item Value Reference Range Interpretation Comments Basophils (test code = 1.4 See_Comment [Aut omated message] The Basophils) system which ge nerated this result tra nsmitted reference range : <=1.0. The reference r katie was not used to int erpret this result as normal/abnormal . [place] 824581-04-30 17:47:00 Test Item Value Reference Range Interpretation Comments Neutrophils # (test code = Neutrophils 4.1 1.5-8.1 #) [facility] [id number] 17:47:00 Test Item Value Reference Range Interpretation Comments Lymphocytes # (test code = Lymphocytes 1.8 1.0-5.5 #) [place] 824581-04-30 17:47:00 Test Item Value Reference Range Interpretation Comments Monocytes # (test code 0.5 See_Comment [Aut omated message] The = Monocytes #) system which generated this result tra nsmitted reference range : <=0.8. The reference r katie was not used to int erpret this result as normal/abnormal . [facility] HospitalDvaouojMCVSIBIXJO8055-67-15 17:47:00 Test Item Value Reference Range Interpretation Comments Eosinophils # (test code 0.2 See_Comment [A utomated message] The = Eosinophils #) system whic h generated this result tra nsmitted reference range : <=0.5. The reference r katie was not used to int erpret this result as normal/abnormal . [facility] HospitalCpbjlorLNQEBLIESJ3562-11-04 17:47:00 Test Item Value Reference Range Interpretation Comments Basophils # (test code 0.1 See_Comment [Aut omated message] The = Basophils #) system which generated this result tra nsmitted reference range : <=0.2. The reference r katie was not used to int erpret this result as normal/abnormal . [facility] [id number] 17:47:00 Test Item Value Reference Range Interpretation Comments WBC X 10x3 (test code = WBC X 10x3) 6.6 3.7-10.4 [place] 824581-04-30 17:47:00 Test Item Value Reference Range Interpretation Comments RBC X 10x6 (test code = RBC X 10x6) 3.46 4.20-5.40 [place] 824581-04-30 17:47:00 Test Item Value Reference Range Interpretation Comments Hgb (test code = Hgb) 11.0 12.0-16.0 [place] 824581-04-30 17:47:00 Test Item Value Reference Range Interpretation Comments Hct (test code = Hct) 32.7 36.0-48.0 [facility] HospitalUeodqtzNYFXTOHOJI4806-40-57 17:47:00 Test Item Value Reference Range Interpretation Comments MCV (test code = MCV) 94.6 80.0-98.0 [facility] HospitalFzvhhvnYJAVNFAWTR4710-74-67 17:47:00 Test Item Value Reference Range Interpretation Comments MCH (test code = MCH) 31.8 pg 27.0-31.0 [facility] HospitalKwvtbupPISXVUSVJH7999-65-59 17:47:00 Test Item Value Reference Range Interpretation Comments MCHC (test code = MCHC) 33.7 32.0-36.0 [facility] HospitalXqjosdjYHXERNUGHI6652-00-99 17:47:00 Test Item Value Reference Range Interpretation Comments RDW (test code = RDW) 12.4 11.5-14.5 [facility] HospitalKrpfscpQUJUDTFMSK1696-62-42 17:47:00 Test Item Value Reference Range Interpretation Comments Platelet (test code = Platelet) 201 133-450 [facility] H[id number] 17:47:00 Test Item Value Reference Range Interpretation Comments MPV (test code = MPV) 7.9 7.4-10.4 [facility] HospitalIuvjtyyNSUOEILTPW0886-13-85 17:47:00 Test Item Value Reference Range Interpretation Comments PT (test code = PT) 13.5 s 12.0-14.7 [facility] HospitalUfblxdlEAKBOLUNCF7374-95-28 17:47:00 Test Item Value Reference Range Interpretation Comments INR (test code = INR) 1.04 1 0.85-1.17 [facility] HospitalTsbhcnnWTSVGGITPG7846-76-08 17:47:00 Test Item Value Reference Range Interpretation Comments PTT (test code = PTT) 27.3 s 22.9-35.8 [facility] AND [id number] 17:47:00 Test Item Value Reference Range Interpretation Comments UA Turbidity (test code Slight *ABN*(10/24/20 = UA Turbidity) 12:47 PM) [facility] AND [id number] 17:47:00 Test Item Value Reference Range Interpretation Comments UA Spec Grav (test code = UA Spec 1.012 1 Grav) [facility] AND [id number] 17:47:00 Test Item Value Reference Range Interpretation Comments UA pH (test code = UA pH) 6.0 1 5.0-8.0 [facility] AND [id number] 17:47:00 Test Item Value Reference Range Interpretation Comments UA Protein (test code = UA Negative mg/dL Protein) [facility] AND [id number] 17:47:00 Test Item Value Reference Range Interpretation Comments UA Glucose (test code = UA Negative mg/dL Glucose) [facility] AND [id number] 17:47:00 Test Item Value Reference Range Interpretation Comments UA Ketones (test code = UA Negative mg/dL Ketones) [facility] AND [id number] 17:47:00 Test Item Value Reference Range Interpretation Comments UA Bili (test code = Negative *NA*(10/24/20 UA Bili) 12:47 PM) [facility] AND [id number] 17:47:00 Test Item Value Reference Range Interpretation Comments UA Blood (test code = Negative (10/24/20 12:47 UA Blood) PM) [facility] AND [id number] 17:47:00 Test Item Value Reference Range Interpretation Comments UA Nitrite (test code Positive *ABN*(10/24/20 = UA Nitrite) 12:47 PM) [facility] AND [id number] 17:47:00 Test Item Value Reference Range Interpretation Comments UA Leuk Est (test code Large *ABN*(10/24/20 = UA Leuk Est) 12:47 PM) [facility] AND [id number] 17:47:00 Test Item Value Reference Range Interpretation Comments UA Sq Epi (test code = UA Sq Occasional /LPF Epi) [facility] AND [id number] 17:47:00 Test Item Value Reference Range Interpretation Comments UA WBC (test code = 70 See_Comment [Automa matteo message] The UA WBC) system which ge nerated this result transmit matteo reference range : <=5. The reference range was not used to interpr et this result as miesha l/abnormal. [facility] AND [id number] 17:47:00 Test Item Value Reference Range Interpretation Comments UA RBC (test code = 1 See_Comment [Automa matteo message] The UA RBC) system which ge nerated this result transmit matteo reference range : <=2. The reference range was not used to interpr et this result as miesha l/abnormal. [facility] AND [id number] 17:47:00 Test Item Value Reference Range Interpretation Comments UA Bacteria (test code = UA Many /HPF Bacteria) [facility] AND [id number] 17:47:00 Test Item Value Reference Range Interpretation Comments UA Color (test code = UA Color) Ltyellow [facility] AND [id number] 17:47:00 Test Item Value Reference Range Interpretation Comments UA Urobilinogen (test code = UA no gt 0.1-1.0 Urobilinogen) [facility] HospitalClear[facility] AudioOOD BANK [id number] 17:47:00 Test Item Value Reference Range Interpretation Comments RBC product (test code Product available = RBC product) (10/24/20 12:47 PM) [facility] HospitalImpacto Tecnologias [id number] 17:47:00 Test Item Value Reference Range Interpretation Comments Glucose Lvl (test code = Glucose Lvl) 110 70-99 [facility] HospitalImp[facility] Tecnolog[facility] [id number] 17:47:00 Test Item Value Reference Range Interpretation Comments BUN (test code = BUN) 42 7-22 [facility] [id number] 17:47:00 Test Item Value Reference Range Interpretation Comments Creatinine Lvl (test code = Creatinine 1.00 0.50-1.40 Lvl) [facility] [id number] 17:47:00 Test Item Value Reference Range Interpretation Comments Sodium Lvl (test code = Sodium Lvl) 139 135-145 [facility] [id number] 17:47:00 Test Item Value Reference Range Interpretation Comments Potassium Lvl (test code = Potassium 4.2 3.5-5.1 Lvl) [facility] [id number] 17:47:00 Test Item Value Reference Range Interpretation Comments Chloride Lvl (test code = Chloride Lvl) 103 95-109 [facility] [id number] 17:47:00 Test Item Value Reference Range Interpretation Comments CO2 (test code = CO2) 28 24-32 [facility] [id number] 17:47:00 Test Item Value Reference Range Interpretation Comments Calcium Lvl (test code = Calcium Lvl) 9.6 8.5-10.5 [place] 918531-04-30 17:47:00 Test Item Value Reference Range Interpretation Comments AGAP (test code = AGAP) 12.2 10.0-20.0 [place] 918531-04-30 17:47:00 Test Item Value Reference Range Interpretation Comments eGFR (test code = eGFR) 58 [place] 824581-04-30 17:47:00 Test Item Value Reference Range Interpretation Comments Segs (test code = Segs) 61.5 45.0-75.0 [place] 824581-04-30 17:47:00 Test Item Value Reference Range Interpretation Comments Lymphocytes (test code = Lymphocytes) 26.7 20.0-40.0 [place] 824581-04-30 17:47:00 Test Item Value Reference Range Interpretation Comments Monocytes (test code = Monocytes) 7.3 2.0-12.0 [place] 824581-04-30 17:47:00 Test Item Value Reference Range Interpretation Comments Eosinophils (test code = 3.1 See_Comment [A utomated message] The Eosinophils) system which ge nerated this result tra nsmitted reference range : <=4.0. The reference r katie was not used to int erpret this result as normal/abnormal . [place] 824581-04-30 17:47:00 Test Item Value Reference Range Interpretation Comments Basophils (test code = 1.4 See_Comment [Aut omated message] The Basophils) system which ge nerated this result tra nsmitted reference range : <=1.0. The reference r katie was not used to int erpret this result as normal/abnormal . [place] 824581-04-30 17:47:00 Test Item Value Reference Range Interpretation Comments Neutrophils # (test code = Neutrophils 4.1 1.5-8.1 #) [place] 824581-04-30 17:47:00 Test Item Value Reference Range Interpretation Comments Lymphocytes # (test code = Lymphocytes 1.8 1.0-5.5 #) [place] 824581-04-30 17:47:00 Test Item Value Reference Range Interpretation Comments Monocytes # (test code 0.5 See_Comment [Aut omated message] The = Monocytes #) system which generated this result tra nsmitted reference range : <=0.8. The reference r katie was not used to int erpret this result as normal/abnormal . [id number] 17:47:00 Test Item Value Reference Range Interpretation Comments Eosinophils # (test code 0.2 See_Comment [A utomated message] The = Eosinophils #) system whic h generated this result tra nsmitted reference range : <=0.5. The reference r katie was not used to int erpret this result as normal/abnormal . [facility] HospitalWxvbkaoWKFJUQDHZY8248-96-21 17:47:00 Test Item Value Reference Range Interpretation Comments Basophils # (test code 0.1 See_Comment [Aut omated message] The = Basophils #) system which generated this result tra nsmitted reference range : <=0.2. The reference r katie was not used to int erpret this result as normal/abnormal . [facility] HospitalFleocjfOEBWJMIVIG7129-96-52 17:47:00 Test Item Value Reference Range Interpretation Comments WBC X 10x3 (test code = WBC X 10x3) 6.6 3.7-10.4 [facility] HospitalArpaksmSPLFMAYIRU5027-83-17 17:47:00 Test Item Value Reference Range Interpretation Comments RBC X 10x6 (test code = RBC X 10x6) 3.46 4.20-5.40 [facility] HospitalVzgtxvjCTOOZRWOVQ4880-21-63 17:47:00 Test Item Value Reference Range Interpretation Comments Hgb (test code = Hgb) 11.0 12.0-16.0 [facility] HospitalNherzsqXRMCENPTZP1522-36-88 17:47:00 Test Item Value Reference Range Interpretation Comments Hct (test code = Hct) 32.7 36.0-48.0 [facility] HospitalPkpltvhOQVYDHOLDQ5987-19-21 17:47:00 Test Item Value Reference Range Interpretation Comments MCV (test code = MCV) 94.6 80.0-98.0 [facility] HospitalNwkcnwwXDPJCLPGCP5400-37-04 17:47:00 Test Item Value Reference Range Interpretation Comments MCH (test code = MCH) 31.8 pg 27.0-31.0 [facility] HospitalWtpumloVNCJTJFNJB7350-12-38 17:47:00 Test Item Value Reference Range Interpretation Comments MCHC (test code = MCHC) 33.7 32.0-36.0 [place] 824581-04-30 17:47:00 Test Item Value Reference Range Interpretation Comments RDW (test code = RDW) 12.4 11.5-14.5 [facility] HospitalYwohxujJFCEIDGCCR4288-24-66 17:47:00 Test Item Value Reference Range Interpretation Comments Platelet (test code = Platelet) 201 133-450 [facility] HospitalMgxjvwfMBEYBGEEAJ2966-73-25 17:47:00 Test Item Value Reference Range Interpretation Comments MPV (test code = MPV) 7.9 7.4-10.4 [facility] HospitalPhvzkajOHRSZDDGBD5702-89-92 17:47:00 Test Item Value Reference Range Interpretation Comments PT (test code = PT) 13.5 s 12.0-14.7 [facility] HospitalCshzmadQIJJUFFCZG3856-28-43 17:47:00 Test Item Value Reference Range Interpretation Comments INR (test code = INR) 1.04 1 0.85-1.17 [facility] HospitalSkwaiasOURNTYKYEB3959-59-53 17:47:00 Test Item Value Reference Range Interpretation Comments PTT (test code = PTT) 27.3 s 22.9-35.8 [facility]2021-04-30 17:47:00 Test Item Value Reference Range Interpretation Comments UA Turbidity (test code Slight *ABN*(10/24/20 = UA Turbidity) 12:47 PM) [facility] AND [id number] 17:47:00 Test Item Value Reference Range Interpretation Comments UA Spec Grav (test code = UA Spec 1.012 1 Grav) [facility] AND [id number] 17:47:00 Test Item Value Reference Range Interpretation Comments UA pH (test code = UA pH) 6.0 1 5.0-8.0 [facility] AND [id number] 17:47:00 Test Item Value Reference Range Interpretation Comments UA Protein (test code = UA Negative mg/dL Protein) [facility] AND [id number] 17:47:00 Test Item Value Reference Range Interpretation Comments UA Glucose (test code = UA Negative mg/dL Glucose) [facility] AND [id number] 17:47:00 Test Item Value Reference Range Interpretation Comments UA Ketones (test code = UA Negative mg/dL Ketones) [facility] AND [id number] 17:47:00 Test Item Value Reference Range Interpretation Comments UA Bili (test code = Negative *NA*(10/24/20 UA Bili) 12:47 PM) [facility] [id number] 17:47:00 Test Item Value Reference Range Interpretation Comments UA Blood (test code = Negative (10/24/20 12:47 UA Blood) PM) [facility] AND [id number] 17:47:00 Test Item Value Reference Range Interpretation Comments UA Nitrite (test code Positive *ABN*(10/24/20 = UA Nitrite) 12:47 PM) [facility] AND [id number] 17:47:00 Test Item Value Reference Range Interpretation Comments UA Leuk Est (test code Large *ABN*(10/24/20 = UA Leuk Est) 12:47 PM) [facility] AND [id number] 17:47:00 Test Item Value Reference Range Interpretation Comments UA Sq Epi (test code = UA Sq Occasional /LPF Epi) [facility] AND [id number] 17:47:00 Test Item Value Reference Range Interpretation Comments UA WBC (test code = 70 See_Comment [Automa matteo message] The UA WBC) system which ge nerated this result transmit matteo reference range : <=5. The reference range was not used to interpr et this result as miesha l/abnormal. [facility] AND [id number] 17:47:00 Test Item Value Reference Range Interpretation Comments UA RBC (test code = 1 See_Comment [Automa matteo message] The UA RBC) system which ge nerated this result transmit matteo reference range : <=2. The reference range was not used to interpr et this result as miesha l/abnormal. [facility] AND [id number] 17:47:00 Test Item Value Reference Range Interpretation Comments UA Bacteria (test code = UA Many /HPF Bacteria) [facility] AND [id number] 17:47:00 Test Item Value Reference Range Interpretation Comments UA Color (test code = UA Color) Ltyellow [facility] AND [id number] 17:47:00 Test Item Value Reference Range Interpretation Comments UA Urobilinogen (test code = UA no gt 0.1-1.0 Urobilinogen) [id number] 17:47:00 Test Item Value Reference Range Interpretation Comments RBC product (test code Product available = RBC product) (10/24/20 12:47 PM) [facility]2021-04-30 17:47:00 Test Item Value Reference Range Interpretation Comments Glucose Lvl (test code = Glucose Lvl) 110 70-99 [facility]2021-04-30 17:47:00 Test Item Value Reference Range Interpretation Comments BUN (test code = BUN) 42 7-22 [facility]2021-04-30 17:47:00 Test Item Value Reference Range Interpretation Comments Creatinine Lvl (test code = Creatinine 1.00 0.50-1.40 Lvl) [facility]2021-04-30 17:47:00 Test Item Value Reference Range Interpretation Comments Sodium Lvl (test code = Sodium Lvl) 139 135-145 [facility]2021-04-30 17:47:00 Test Item Value Reference Range Interpretation Comments Potassium Lvl (test code = Potassium 4.2 3.5-5.1 Lvl) [facility]2021-04-30 17:47:00 Test Item Value Reference Range Interpretation Comments Chloride Lvl (test code = Chloride Lvl) 103 95-109 [facility]2021-04-30 17:47:00 Test Item Value Reference Range Interpretation Comments CO2 (test code = CO2) 28 24-32 [facility]2021-04-30 17:47:00 Test Item Value Reference Range Interpretation Comments Calcium Lvl (test code = Calcium Lvl) 9.6 8.5-10.5 [facility]2021-04-30 17:47:00 Test Item Value Reference Range Interpretation Comments AGAP (test code = AGAP) 12.2 10.0-20.0 [facility]2021-04-30 17:47:00 Test Item Value Reference Range Interpretation Comments eGFR (test code = eGFR) 58 [facility] HospitalGcbsjjrMWBHELZOCC0926-52-71 17:47:00 Test Item Value Reference Range Interpretation Comments Segs (test code = Segs) 61.5 45.0-75.0 [facility] HospitalRzdxkdiBCSGRYOARB9350-27-27 17:47:00 Test Item Value Reference Range Interpretation Comments Lymphocytes (test code = Lymphocytes) 26.7 20.0-40.0 [facility] HospitalSronirwLZVEHNKQKW2339-97-71 17:47:00 Test Item Value Reference Range Interpretation Comments Monocytes (test code = Monocytes) 7.3 2.0-12.0 [facility] HospitalSfabyshLJKUJAYCFX5489-43-82 17:47:00 Test Item Value Reference Range Interpretation Comments Eosinophils (test code = 3.1 See_Comment [A utomated message] The Eosinophils) system which ge nerated this result tra nsmitted reference range : <=4.0. The reference r katie was not used to int erpret this result as normal/abnormal . [facility] HospitalWjsqgzpGIOOKYIAGR6443-23-11 17:47:00 Test Item Value Reference Range Interpretation Comments Basophils (test code = 1.4 See_Comment [Aut omated message] The Basophils) system which ge nerated this result tra nsmitted reference range : <=1.0. The reference r katie was not used to int erpret this result as normal/abnormal . [facility] HospitalAkcnwbdRDSNRNNXQY5564-82-50 17:47:00 Test Item Value Reference Range Interpretation Comments Neutrophils # (test code = Neutrophils 4.1 1.5-8.1 #) [facility] HospitalHnsdihiWNMUJVXVBG9100-80-74 17:47:00 Test Item Value Reference Range Interpretation Comments Lymphocytes # (test code = Lymphocytes 1.8 1.0-5.5 #) [facility] HospitalFsypmmbNFSVNKUQYT7045-57-99 17:47:00 Test Item Value Reference Range Interpretation Comments Monocytes # (test code 0.5 See_Comment [Aut omated message] The = Monocytes #) system which generated this result tra nsmitted reference range : <=0.8. The reference r katie was not used to int erpret this result as normal/abnormal . [facility] [id number] 17:47:00 Test Item Value Reference Range Interpretation Comments RBC product (test code Product available = RBC product) (10/24/20 12:47 PM) [facility] HospitalAreieyjEUMVBWNLWC5111-56-31 17:47:00 Test Item Value Reference Range Interpretation Comments Eosinophils # (test code 0.2 See_Comment [A utomated message] The = Eosinophils #) system ic h generated this result tra nsmitted reference range : <=0.5. The reference r katie was not used to int erpret this result as normal/abnormal . [place] 918531-04-30 17:47:00 Test Item Value Reference Range Interpretation Comments Glucose Lvl (test code = Glucose Lvl) 110 70-99 [place] 918531-04-30 17:47:00 Test Item Value Reference Range Interpretation Comments BUN (test code = BUN) 42 7-22 [place] 918531-04-30 17:47:00 Test Item Value Reference Range Interpretation Comments Creatinine Lvl (test code = Creatinine 1.00 0.50-1.40 Lvl) [place] 918531-04-30 17:47:00 Test Item Value Reference Range Interpretation Comments Sodium Lvl (test code = Sodium Lvl) 139 135-145 [place] 918531-04-30 17:47:00 Test Item Value Reference Range Interpretation Comments Potassium Lvl (test code = Potassium 4.2 3.5-5.1 Lvl) [place] 918531-04-30 17:47:00 Test Item Value Reference Range Interpretation Comments Chloride Lvl (test code = Chloride Lvl) 103 95-109 [place] 918531-04-30 17:47:00 Test Item Value Reference Range Interpretation Comments CO2 (test code = CO2) 28 24-32 [place] 918531-04-30 17:47:00 Test Item Value Reference Range Interpretation Comments Calcium Lvl (test code = Calcium Lvl) 9.6 8.5-10.5 [place] 918531-04-30 17:47:00 Test Item Value Reference Range Interpretation Comments AGAP (test code = AGAP) 12.2 10.0-20.0 [place] 918531-04-30 17:47:00 Test Item Value Reference Range Interpretation Comments eGFR (test code = eGFR) 58 [place] 824581-04-30 17:47:00 Test Item Value Reference Range Interpretation Comments Basophils # (test code 0.1 See_Comment [Aut omated message] The = Basophils #) system which generated this result tra nsmitted reference range : <=0.2. The reference r katie was not used to int erpret this result as normal/abnormal . [place] 824581-04-30 17:47:00 Test Item Value Reference Range Interpretation Comments Segs (test code = Segs) 61.5 45.0-75.0 [place] 824581-04-30 17:47:00 Test Item Value Reference Range Interpretation Comments Lymphocytes (test code = Lymphocytes) 26.7 20.0-40.0 [place] 824581-04-30 17:47:00 Test Item Value Reference Range Interpretation Comments Monocytes (test code = Monocytes) 7.3 2.0-12.0 [place] 824581-04-30 17:47:00 Test Item Value Reference Range Interpretation Comments Eosinophils (test code = 3.1 See_Comment [A utomated message] The Eosinophils) system which ge nerated this result tra nsmitted reference range : <=4.0. The reference r katie was not used to int erpret this result as normal/abnormal . [place] [address]-04-30 17:47:00 Test Item Value Reference Range Interpretation Comments Basophils (test code = 1.4 See_Comment [Aut omated message] The Basophils) system which ge nerated this result tra nsmitted reference range : <=1.0. The reference r katie was not used to int erpret this result as normal/abnormal . [facility] HospitalSqnbnpaKBURURBWCC8155-78-53 17:47:00 Test Item Value Reference Range Interpretation Comments Neutrophils # (test code = Neutrophils 4.1 1.5-8.1 #) [place] 824581-04-30 17:47:00 Test Item Value Reference Range Interpretation Comments Lymphocytes # (test code = Lymphocytes 1.8 1.0-5.5 #) [place] 824581-04-30 17:47:00 Test Item Value Reference Range Interpretation Comments Monocytes # (test code 0.5 See_Comment [Aut omated message] The = Monocytes #) system which generated this result tra nsmitted reference range : <=0.8. The reference r katie was not used to int erpret this result as normal/abnormal . [place] 824581-04-30 17:47:00 Test Item Value Reference Range Interpretation Comments Eosinophils # (test code 0.2 See_Comment [A utomated message] The = Eosinophils #) system ic h generated this result tra nsmitted reference range : <=0.5. The reference r katie was not used to int erpret this result as normal/abnormal . [facility] HospitalLgokbvhLMTFAPNWOR3237-73-33 17:47:00 Test Item Value Reference Range Interpretation Comments Basophils # (test code 0.1 See_Comment [Aut omated message] The = Basophils #) system which generated this result tra nsmitted reference range : <=0.2. The reference r katie was not used to int erpret this result as normal/abnormal . [facility] HospitalYuobugyBXDYXVJYEQ1932-29-51 17:47:00 Test Item Value Reference Range Interpretation Comments WBC X 10x3 (test code = WBC X 10x3) 6.6 3.7-10.4 [facility] HospitalNhijvyvNGNIFYOENL4562-11-23 17:47:00 Test Item Value Reference Range Interpretation Comments WBC X 10x3 (test code = WBC X 10x3) 6.6 3.7-10.4 [facility] HospitalGtgbobiLWGGLBPFXS2201-85-34 17:47:00 Test Item Value Reference Range Interpretation Comments RBC X 10x6 (test code = RBC X 10x6) 3.46 4.20-5.40 [facility] HospitalNmbpjuwRBPTAMQCJH7680-75-36 17:47:00 Test Item Value Reference Range Interpretation Comments Hgb (test code = Hgb) 11.0 12.0-16.0 [facility] HospitalQomcqliZJAPQUXOQE8394-61-27 17:47:00 Test Item Value Reference Range Interpretation Comments Hct (test code = Hct) 32.7 36.0-48.0 [facility] HospitalEijeqxmSXVCQDKAFN4649-23-50 17:47:00 Test Item Value Reference Range Interpretation Comments MCV (test code = MCV) 94.6 80.0-98.0 [facility] HospitalTeiiijfBJCLTKPYHX0358-80-01 17:47:00 Test Item Value Reference Range Interpretation Comments MCH (test code = MCH) 31.8 pg 27.0-31.0 [facility] HospitalWambrisPPGHOTRDUK8705-27-04 17:47:00 Test Item Value Reference Range Interpretation Comments MCHC (test code = MCHC) 33.7 32.0-36.0 [facility] HospitalVqimojxQLLKNEJJZA9170-68-25 17:47:00 Test Item Value Reference Range Interpretation Comments RDW (test code = RDW) 12.4 11.5-14.5 [facility] HospitalYfdgfptHBGNMCLYSB5971-56-82 17:47:00 Test Item Value Reference Range Interpretation Comments Platelet (test code = Platelet) 201 133-450 [facility] HospitalKupbtvkZLEIBYVCJL3927-70-89 17:47:00 Test Item Value Reference Range Interpretation Comments MPV (test code = MPV) 7.9 7.4-10.4 [facility] HospitalAtuiqyqBWRVRAWPYR5710-85-34 17:47:00 Test Item Value Reference Range Interpretation Comments RBC X 10x6 (test code = RBC X 10x6) 3.46 4.20-5.40 [facility] HospitalXeeipkqCMUJEPYIMI2549-77-76 17:47:00 Test Item Value Reference Range Interpretation Comments PT (test code = PT) 13.5 s 12.0-14.7 [facility] HospitalTpfcvzqXQHTZCBSDD1386-99-41 17:47:00 Test Item Value Reference Range Interpretation Comments INR (test code = INR) 1.04 1 0.85-1.17 [facility] HospitalTprlvwxGALDFKSRPX3151-38-46 17:47:00 Test Item Value Reference Range Interpretation Comments PTT (test code = PTT) 27.3 s 22.9-35.8 [facility] AND [id number] 17:47:00 Test Item Value Reference Range Interpretation Comments UA Turbidity (test code Slight *ABN*(10/24/20 = UA Turbidity) 12:47 PM) [facility] AND [id number] 17:47:00 Test Item Value Reference Range Interpretation Comments UA Spec Grav (test code = UA Spec 1.012 1 Grav) [facility] AND [id number] 17:47:00 Test Item Value Reference Range Interpretation Comments UA pH (test code = UA pH) 6.0 1 5.0-8.0 [facility] AND [id number] 17:47:00 Test Item Value Reference Range Interpretation Comments UA Protein (test code = UA Negative mg/dL Protein) [facility] AND [id number] 17:47:00 Test Item Value Reference Range Interpretation Comments UA Glucose (test code = UA Negative mg/dL Glucose) [facility] AND [id number] 17:47:00 Test Item Value Reference Range Interpretation Comments UA Ketones (test code = UA Negative mg/dL Ketones) [facility] AND [id number] 17:47:00 Test Item Value Reference Range Interpretation Comments UA Bili (test code = Negative *NA*(10/24/20 UA Bili) 12:47 PM) [facility] VpkvarkROOZUFTSPW6550-54-71 17:47:00 Test Item Value Reference Range Interpretation Comments Hgb (test code = Hgb) 11.0 12.0-16.0 [facility] AND [id number] 17:47:00 Test Item Value Reference Range Interpretation Comments UA Blood (test code = Negative (10/24/20 12:47 UA Blood) PM) [facility] AND [id number] 17:47:00 Test Item Value Reference Range Interpretation Comments UA Nitrite (test code Positive *ABN*(10/24/20 = UA Nitrite) 12:47 PM) [facility] AND [id number] 17:47:00 Test Item Value Reference Range Interpretation Comments UA Leuk Est (test code Large *ABN*(10/24/20 = UA Leuk Est) 12:47 PM) [facility] AND [id number] 17:47:00 Test Item Value Reference Range Interpretation Comments UA Sq Epi (test code = UA Sq Occasional /LPF Epi) [facility] AND [id number] 17:47:00 Test Item Value Reference Range Interpretation Comments UA WBC (test code = 70 See_Comment [Automa matteo message] The UA WBC) system which ge nerated this result transmit matteo reference range : <=5. The reference range was not used to interpr et this result as miesha l/abnormal. [facility] AND [id number] 17:47:00 Test Item Value Reference Range Interpretation Comments UA RBC (test code = 1 See_Comment [Automa matteo message] The UA RBC) system which ge nerated this result transmit matteo reference range : <=2. The reference range was not used to interpr et this result as miesha l/abnormal. [facility] AND [id number] 17:47:00 Test Item Value Reference Range Interpretation Comments UA Bacteria (test code = UA Many /HPF Bacteria) [facility] AND [id number] 17:47:00 Test Item Value Reference Range Interpretation Comments UA Color (test code = UA Color) Ltyellow [facility] AND [id number] 17:47:00 Test Item Value Reference Range Interpretation Comments UA Urobilinogen (test code = UA no gt 0.1-1.0 Urobilinogen) [facility] HospitalIhioncrYBKANYNRRJ0090-80-13 17:47:00 Test Item Value Reference Range Interpretation Comments Hct (test code = Hct) 32.7 36.0-48.0 [facility]WeowhjrUHWDYYUXMR4581-57-54 17:47:00 Test Item Value Reference Range Interpretation Comments MCV (test code = MCV) 94.6 80.0-98.0 [facility] HospitalXgyupmbXMGWOTWAFS6763-60-86 17:47:00 Test Item Value Reference Range Interpretation Comments MCH (test code = MCH) 31.8 pg 27.0-31.0 [facility] HospitalSwlxrrgBPBACJQCQY9469-74-93 17:47:00 Test Item Value Reference Range Interpretation Comments MCHC (test code = MCHC) 33.7 32.0-36.0 [facility] HospitalPgalfydXMUGZVQQFD7782-11-92 17:47:00 Test Item Value Reference Range Interpretation Comments RDW (test code = RDW) 12.4 11.5-14.5 [facility] HospitalRheaueoRCDQNAPEFH2761-21-85 17:47:00 Test Item Value Reference Range Interpretation Comments Platelet (test code = Platelet) 201 133-450 [facility] HospitalLfuhxkpYBTSDOZXHW0072-93-38 17:47:00 Test Item Value Reference Range Interpretation Comments MPV (test code = MPV) 7.9 7.4-10.4 [facility] HospitalPpvkxzoORUMODRUYW5488-10-81 17:47:00 Test Item Value Reference Range Interpretation Comments PT (test code = PT) 13.5 s 12.0-14.7 [facility] Hos[id number] 17:47:00 Test Item Value Reference Range Interpretation Comments INR (test code = INR) 1.04 1 0.85-1.17 [facility]TaowrrxGAMRNTTQAT8731-02-99 17:47:00 Test Item Value Reference Range Interpretation Comments PTT (test code = PTT) 27.3 s 22.9-35.8 [facility] AND [id number] 17:47:00 Test Item Value Reference Range Interpretation Comments UA Turbidity (test code Slight *ABN*(10/24/20 = UA Turbidity) 12:47 PM) [facility] AND [id number] 17:47:00 Test Item Value Reference Range Interpretation Comments UA Spec Grav (test code = UA Spec 1.012 1 Grav) [facility] AND [id number] 17:47:00 Test Item Value Reference Range Interpretation Comments UA pH (test code = UA pH) 6.0 1 5.0-8.0 [facility] AND [id number] 17:47:00 Test Item Value Reference Range Interpretation Comments UA Protein (test code = UA Negative mg/dL Protein) [facility] AND [id number] 17:47:00 Test Item Value Reference Range Interpretation Comments UA Glucose (test code = UA Negative mg/dL Glucose) [facility] AND [id number] 17:47:00 Test Item Value Reference Range Interpretation Comments UA Ketones (test code = UA Negative mg/dL Ketones) [facility] AND [id number] 17:47:00 Test Item Value Reference Range Interpretation Comments UA Bili (test code = Negative *NA*(10/24/20 UA Bili) 12:47 PM) [facility] AND [id number] 17:47:00 Test Item Value Reference Range Interpretation Comments UA Blood (test code = Negative (10/24/20 12:47 UA Blood) PM) [facility] AND [id number] 17:47:00 Test Item Value Reference Range Interpretation Comments UA Nitrite (test code Positive *ABN*(10/24/20 = UA Nitrite) 12:47 PM) [facility] AND [id number] 17:47:00 Test Item Value Reference Range Interpretation Comments UA Leuk Est (test code Large *ABN*(10/24/20 = UA Leuk Est) 12:47 PM) [facility] AND [id number] 17:47:00 Test Item Value Reference Range Interpretation Comments UA Sq Epi (test code = UA Sq Occasional /LPF Epi) [facility] AND [id number] 17:47:00 Test Item Value Reference Range Interpretation Comments UA WBC (test code = 70 See_Comment [Automa matteo message] The UA WBC) system which ge nerated this result transmit matteo reference range : <=5. The reference range was not used to interpr et this result as miesha l/abnormal. [facility] AND [id number] 17:47:00 Test Item Value Reference Range Interpretation Comments UA RBC (test code = 1 See_Comment [Automa matteo message] The UA RBC) system which ge nerated this result transmit matteo reference range : <=2. The reference range was not used to interpr et this result as miesha l/abnormal. [facility] AND [id number] 17:47:00 Test Item Value Reference Range Interpretation Comments UA Bacteria (test code = UA Many /HPF Bacteria) [facility] AND [id number] 17:47:00 Test Item Value Reference Range Interpretation Comments UA Color (test code = UA Color) Ltyellow [facility] AND [id number] 17:47:00 Test Item Value Reference Range Interpretation Comments UA Urobilinogen (test code = UA no gt 0.1-1.0 Urobilinogen) [facility]2021-03-25 16:20:00 Test Item Value Reference Range Interpretation Comments POC Creatinine (test code = POC 1.1 0.5-1.4 Creatinine) [place] 918531-03-25 16:20:00 Test Item Value Reference Range Interpretation Comments eGFR (test code = eGFR) 52 [place] 918531-03-25 16:20:00 Test Item Value Reference Range Interpretation Comments POC Creatinine (test code = POC 1.1 0.5-1.4 Creatinine) [place] 918531-03-25 16:20:00 Test Item Value Reference Range Interpretation Comments eGFR (test code = eGFR) 52 [place] 918531-03-25 16:20:00 Test Item Value Reference Range Interpretation Comments POC Creatinine (test code = POC 1.1 0.5-1.4 Creatinine) [place] 918531-03-25 16:20:00 Test Item Value Reference Range Interpretation Comments eGFR (test code = eGFR) 52 [place] [address]-03-25 16:20:00 Test Item Value Reference Range Interpretation Comments POC Creatinine (test code = POC 1.1 0.5-1.4 Creatinine) [place] 918531-03-25 16:20:00 Test Item Value Reference Range Interpretation Comments eGFR (test code = eGFR) 52 [place] 918531-03-25 16:20:00 Test Item Value Reference Range Interpretation Comments POC Creatinine (test code = POC 1.1 0.5-1.4 Creatinine) [facility]2021-03-25 16:20:00 Test Item Value Reference Range Interpretation Comments eGFR (test code = eGFR) 52 [place] 918531-03-25 16:20:00 Test Item Value Reference Range Interpretation Comments POC Creatinine (test code = POC 1.1 0.5-1.4 Creatinine) [facility]2021-03-25 16:20:00 Test Item Value Reference Range Interpretation Comments eGFR (test code = eGFR) 52 [place] 848658-12-18 19:26:00 Test Item Value Reference Range Interpretation Comments eGFR (test code = eGFR) 67 [place] [address]-12-18 19:26:00 Test Item Value Reference Range Interpretation Comments POC Creatinine (test code = POC 0.9 0.5-1.4 Creatinine) [facility]2018-12-18 19:26:00 Test Item Value Reference Range Interpretation Comments eGFR (test code = eGFR) 67 [facility]2018-12-18 19:26:00 Test Item Value Reference Range Interpretation Comments POC Creatinine (test code = POC 0.9 0.5-1.4 Creatinine) [facility]2018-12-18 19:26:00 Test Item Value Reference Range Interpretation Comments eGFR (test code = eGFR) 67 [facility]2018-12-18 19:26:00 Test Item Value Reference Range Interpretation Comments POC Creatinine (test code = POC 0.9 0.5-1.4 Creatinine) [facility]2018-12-18 19:26:00 Test Item Value Reference Range Interpretation Comments eGFR (test code = eGFR) 67 [place] [address]-12-18 19:26:00 Test Item Value Reference Range Interpretation Comments POC Creatinine (test code = POC 0.9 0.5-1.4 Creatinine) [place] 848658-12-18 19:26:00 Test Item Value Reference Range Interpretation Comments eGFR (test code = eGFR) 67 [facility]2018-12-18 19:26:00 Test Item Value Reference Range Interpretation Comments POC Creatinine (test code = POC 0.9 0.5-1.4 Creatinine) [facility]2018-12-18 19:26:00 Test Item Value Reference Range Interpretation Comments eGFR (test code = eGFR) 67 [facility]2018-12-18 19:26:00 Test Item Value Reference Range Interpretation Comments POC Creatinine (test code = POC 0.9 0.5-1.4 Creatinine) [facility]CDCSSZWQP3806[facility] 13:59:00 Test Item Value Reference Range Interpretation Comments Hgb (test code = Hgb) 8.2 12.0-16.0 [facility] HospitalFsvhwxbVLJYYGADJW7782-08-92 13:59:00 Test Item Value Reference Range Interpretation Comments Hct (test code = Hct) 23.6 36.0-48.0 [facility] HospitalLewtjfwJLMFZRAAKN8302-80-12 13:59:00 Test Item Value Reference Range Interpretation Comments Hgb (test code = Hgb) 8.2 12.0-16.0 [facility] HospitalUdhgwrpQSVQPNHLVU6372-09-62 13:59:00 Test Item Value Reference Range Interpretation Comments Hct (test code = Hct) 23.6 36.0-48.0 [facility] HospitalUaclzfzQEDQKTYEDX8035-80-89 13:59:00 Test Item Value Reference Range Interpretation Comments Hgb (test code = Hgb) 8.2 12.0-16.0 [facility] HospitalMycjlyyENHRHIOIGM9689-87-62 13:59:00 Test Item Value Reference Range Interpretation Comments Hct (test code = Hct) 23.6 36.0-48.0 [facility] HospitalIkcxzalQQMVXLTOVO9030-26-18 13:59:00 Test Item Value Reference Range Interpretation Comments Hgb (test code = Hgb) 8.2 12.0-16.0 [facility] HospitalOwithigMEGRRKPEMP9875-84-82 13:59:00 Test Item Value Reference Range Interpretation Comments Hct (test code = Hct) 23.6 36.0-48.0 [facility] HospitalLfyshjdSTVTNFDFXW0222-34-52 13:59:00 Test Item Value Reference Range Interpretation Comments Hgb (test code = Hgb) 8.2 12.0-16.0 [facility] HospitalZxjkiamIPAWBTNHYP3854-53-24 13:59:00 Test Item Value Reference Range Interpretation Comments Hct (test code = Hct) 23.6 36.0-48.0 [facility] HospitalEcxwryzQCRZNUSCFG9858-66-02 13:59:00 Test Item Value Reference Range Interpretation Comments Hgb (test code = Hgb) 8.2 12.0-16.0 [facility] HospitalJdkgvyoCELKEQRAJX8405-63-84 13:59:00 Test Item Value Reference Range Interpretation Comments Hct (test code = Hct) 23.6 36.0-48.0 [facility]2018-05-23 07:58:00 Test Item Value Reference Range Interpretation Comments eGFR (test code = eGFR) 78 [facility]2018-05-23 07:58:00 Test Item Value Reference Range Interpretation Comments AST (test code = AST) 29 See_Comment [Auto mated message] The system which ge nerated this result transmit matteo reference range : <=37. The reference range was not used to interpr et this result as miesha l/abnormal. [place] [address]-05-23 07:58:00 Test Item Value Reference Range Interpretation Comments ALT (test code = ALT) 22 See_Comment [Auto mated message] The system which ge nerated this result transmit matteo reference range : <=65. The reference range was not used to interpr et this result as miesha l/abnormal. [facility]2018-05-23 07:58:00 Test Item Value Reference Range Interpretation Comments Alk Phos (test code = Alk Phos) 41 39-136 [facility]2018-05-23 07:58:00 Test Item Value Reference Range Interpretation Comments Bili Total (test code = Bili Total) 0.5 0.2-1.3 [facility]2018-05-23 07:58:00 Test Item Value Reference Range Interpretation Comments Calcium Lvl (test code = Calcium Lvl) 7.3 8.5-10.5 [facility]2018-05-23 07:58:00 Test Item Value Reference Range Interpretation Comments CO2 (test code = CO2) 28 24-32 [facility]2018-05-23 07:58:00 Test Item Value Reference Range Interpretation Comments Total Protein (test code = Total 5.4 6.4-8.4 Protein) [facility]2018-05-23 07:58:00 Test Item Value Reference Range Interpretation Comments Albumin Lvl (test code = Albumin Lvl) 2.7 3.5-5.0 [facility]2018-05-23 07:58:00 Test Item Value Reference Range Interpretation Comments Glucose Lvl (test code = Glucose Lvl) 98 70-99 [facility]2018-05-23 07:58:00 Test Item Value Reference Range Interpretation Comments Potassium Lvl (test code = Potassium 3.5 3.5-5.1 Lvl) [facility]2018-05-23 07:58:00 Test Item Value Reference Range Interpretation Comments Sodium Lvl (test code = Sodium Lvl) 140 135-145 [facility]2018-05-23 07:58:00 Test Item Value Reference Range Interpretation Comments Chloride Lvl (test code = Chloride Lvl) 103 95-109 [facility]2018-05-23 07:58:00 Test Item Value Reference Range Interpretation Comments BUN (test code = BUN) 16 7-22 [facility]2018-05-23 07:58:00 Test Item Value Reference Range Interpretation Comments Creatinine Lvl (test code = Creatinine 0.80 0.50-1.40 Lvl) [facility]2018-05-23 07:58:00 Test Item Value Reference Range Interpretation Comments A/G Ratio (test code = A/G Ratio) 1.0 1 0.7-1.6 [facility]2018-05-23 07:58:00 Test Item Value Reference Range Interpretation Comments Globulin (test code = Globulin) 2.7 2.7-4.2 [facility]2018-05-23 07:58:00 Test Item Value Reference Range Interpretation Comments B/C Ratio (test code = B/C Ratio) 20 1 6-25 [facility]2018-05-23 07:58:00 Test Item Value Reference Range Interpretation Comments AGAP (test code = AGAP) 12.5 10.0-20.0 [facility]2018-05-23 07:58:00 Test Item Value Reference Range Interpretation Comments Phosphorus (test code = Phosphorus) 3.5 2.5-4.5 [facility]2018-05-23 07:58:00 Test Item Value Reference Range Interpretation Comments Magnesium Lvl (test code = Magnesium 2.1 1.8-2.4 Lvl) [facility] HospitalCnjbyulMEHDWZDHAY2988-03-73 07:58:00 Test Item Value Reference Range Interpretation Comments Platelet (test code = Platelet) 144 133-450 [facility] HospitalBosygmvJMSPHTWNXR5165-89-38 07:58:00 Test Item Value Reference Range Interpretation Comments MCHC (test code = MCHC) 35.5 32.0-36.0 [facility] HospitalOlbclecIAGNQGHXDH2098-06-03 07:58:00 Test Item Value Reference Range Interpretation Comments MPV (test code = MPV) 8.0 7.4-10.4 [facility]NaejkmiYTVKLCCRBD7310-96-42 07:58:00 Test Item Value Reference Range Interpretation Comments RDW (test code = RDW) 15.1 11.5-14.5 [facility] HospitalHrqojpzAIHWAPXBDC5349-47-57 07:58:00 Test Item Value Reference Range Interpretation Comments Hct (test code = Hct) 23.5 36.0-48.0 [facility] HospitalUzjmislZYPADSJBSG8760-67-13 07:58:00 Test Item Value Reference Range Interpretation Comments Hgb (test code = Hgb) 8.3 12.0-16.0 [facility] HospitalBzmxsqbVNBQIHXQTU4986-04-75 07:58:00 Test Item Value Reference Range Interpretation Comments MCH (test code = MCH) 32.2 pg 27.0-31.0 [facility] HospitalYermqliNWAANFFPSJ7817-65-27 07:58:00 Test Item Value Reference Range Interpretation Comments MCV (test code = MCV) 90.8 80.0-98.0 [facility] HospitalUuxovufWJVGOVUVTD5554-45-23 07:58:00 Test Item Value Reference Range Interpretation Comments RBC (test code = RBC) 2.59 4.20-5.40 [facility] HospitalWdbnsulEZSYPXHZSI7043-33-36 07:58:00 Test Item Value Reference Range Interpretation Comments WBC (test code = WBC) 9.8 3.7-10.4 [facility] HospitalPARATHYROID [id number] 07:58:00 Test Item Value Reference Range Interpretation Comments Ca Ion WB (test code = Ca Ion WB) 0.94 1.05-1.25 [facility] [id number] 07:58:00 Test Item Value Reference Range Interpretation Comments Ca Norm WB (test code = Ca Norm WB) 0.98 1.05-1.25 [facility] [id number] 07:58:00 Test Item Value Reference Range Interpretation Comments Hgb A1C (test code = Hgb A1C) 4.9 [facility] HospitalCHEM [id number] 07:58:00 Test Item Value Reference Range Interpretation Comments eGFR (test code = eGFR) 78 [facility]2018-05-23 07:58:00 Test Item Value Reference Range Interpretation Comments AST (test code = AST) 29 See_Comment [Auto mated message] The system which ge nerated this result transmit matteo reference range : <=37. The reference range was not used to interpr et this result as miesha l/abnormal. [facility]2018-05-23 07:58:00 Test Item Value Reference Range Interpretation Comments ALT (test code = ALT) 22 See_Comment [Auto mated message] The system which ge nerated this result transmit matteo reference range : <=65. The reference range was not used to interpr et this result as miesha l/abnormal. [facility]2018-05-23 07:58:00 Test Item Value Reference Range Interpretation Comments Alk Phos (test code = Alk Phos) 41 39-136 [facility]2018-05-23 07:58:00 Test Item Value Reference Range Interpretation Comments Bili Total (test code = Bili Total) 0.5 0.2-1.3 [place] 848658-05-23 07:58:00 Test Item Value Reference Range Interpretation Comments Calcium Lvl (test code = Calcium Lvl) 7.3 8.5-10.5 [facility]2018-05-23 07:58:00 Test Item Value Reference Range Interpretation Comments CO2 (test code = CO2) 28 24-32 [facility]2018-05-23 07:58:00 Test Item Value Reference Range Interpretation Comments Total Protein (test code = Total 5.4 6.4-8.4 Protein) [place] 848658-05-23 07:58:00 Test Item Value Reference Range Interpretation Comments Albumin Lvl (test code = Albumin Lvl) 2.7 3.5-5.0 [facility]2018-05-23 07:58:00 Test Item Value Reference Range Interpretation Comments Glucose Lvl (test code = Glucose Lvl) 98 70-99 [facility]2018-05-23 07:58:00 Test Item Value Reference Range Interpretation Comments Potassium Lvl (test code = Potassium 3.5 3.5-5.1 Lvl) [place] 848658-05-23 07:58:00 Test Item Value Reference Range Interpretation Comments Sodium Lvl (test code = Sodium Lvl) 140 135-145 [facility]2018-05-23 07:58:00 Test Item Value Reference Range Interpretation Comments Chloride Lvl (test code = Chloride Lvl) 103 95-109 [facility]2018-05-23 07:58:00 Test Item Value Reference Range Interpretation Comments BUN (test code = BUN) 16 7-22 [facility]2018-05-23 07:58:00 Test Item Value Reference Range Interpretation Comments Creatinine Lvl (test code = Creatinine 0.80 0.50-1.40 Lvl) [facility]2018-05-23 07:58:00 Test Item Value Reference Range Interpretation Comments A/G Ratio (test code = A/G Ratio) 1.0 1 0.7-1.6 [facility]2018-05-23 07:58:00 Test Item Value Reference Range Interpretation Comments Globulin (test code = Globulin) 2.7 2.7-4.2 [facility]2018-05-23 07:58:00 Test Item Value Reference Range Interpretation Comments B/C Ratio (test code = B/C Ratio) 20 1 6-25 [facility]2018-05-23 07:58:00 Test Item Value Reference Range Interpretation Comments AGAP (test code = AGAP) 12.5 10.0-20.0 [facility]2018-05-23 07:58:00 Test Item Value Reference Range Interpretation Comments Phosphorus (test code = Phosphorus) 3.5 2.5-4.5 [facility]2018-05-23 07:58:00 Test Item Value Reference Range Interpretation Comments Magnesium Lvl (test code = Magnesium 2.1 1.8-2.4 Lvl) [facility] HospitalMookrfmKYHKWLOUXQ3802-23-69 07:58:00 Test Item Value Reference Range Interpretation Comments Platelet (test code = Platelet) 144 133-450 [facility] HospitalBswbqguDUGANFVIBQ6512-23-79 07:58:00 Test Item Value Reference Range Interpretation Comments MCHC (test code = MCHC) 35.5 32.0-36.0 [facility] HospitalPmfsaqyHWBPMQGKRZ4220-99-46 07:58:00 Test Item Value Reference Range Interpretation Comments MPV (test code = MPV) 8.0 7.4-10.4 [facility] HospitalCrucxmyYFFRCBDUSB2318-64-04 07:58:00 Test Item Value Reference Range Interpretation Comments RDW (test code = RDW) 15.1 11.5-14.5 [facility] HospitalPmnstasIRQDGEJQBI3364-25-88 07:58:00 Test Item Value Reference Range Interpretation Comments Hct (test code = Hct) 23.5 36.0-48.0 [facility] HospitalOgegmhpODQXSDKOAC1746-57-97 07:58:00 Test Item Value Reference Range Interpretation Comments Hgb (test code = Hgb) 8.3 12.0-16.0 [facility] HospitalOdxgbxaXOQHJJBXYM1123-31-07 07:58:00 Test Item Value Reference Range Interpretation Comments MCH (test code = MCH) 32.2 pg 27.0-31.0 [facility] HospitalJuvbvgmQQHUPCVXMP9173-37-44 07:58:00 Test Item Value Reference Range Interpretation Comments MCV (test code = MCV) 90.8 80.0-98.0 [facility] HospitalZtyzxesCBUVVZKATJ1426-34-06 07:58:00 Test Item Value Reference Range Interpretation Comments RBC (test code = RBC) 2.59 4.20-5.40 [facility] HospitalFpnghfnTVNBTJHAXT7019-50-70 07:58:00 Test Item Value Reference Range Interpretation Comments WBC (test code = WBC) 9.8 3.7-10.4 [facility]PARATHYROID [id number] 07:58:00 Test Item Value Reference Range Interpretation Comments Ca Ion WB (test code = Ca Ion WB) 0.94 1.05-1.25 [facility]annPARATHYROID [id number] 07:58:00 Test Item Value Reference Range Interpretation Comments Ca Norm WB (test code = Ca Norm WB) 0.98 1.05-1.25 [facility]IAL [id number] 07:58:00 Test Item Value Reference Range Interpretation Comments Hgb A1C (test code = Hgb A1C) 4.9 [facility] HospitalCHEM [id number] 07:58:00 Test Item Value Reference Range Interpretation Comments eGFR (test code = eGFR) 78 [facility] HospitalCHE[facility] [id number] 07:58:00 Test Item Value Reference Range Interpretation Comments AST (test code = AST) 29 See_Comment [Auto mated message] The system which ge nerated this result transmit matteo reference range : <=37. The reference range was not used to interpr et this result as miesha l/abnormal. [facility]Source [place]ST[place] [id number] 07:58:00 Test Item Value Reference Range Interpretation Comments ALT (test code = ALT) 22 See_Comment [Auto mated message] The system which ge nerated this result transmit matteo reference range : <=65. The reference range was not used to interpr et this result as miesha l/abnormal. [facility]2018-05-23 07:58:00 Test Item Value Reference Range Interpretation Comments Alk Phos (test code = Alk Phos) 41 39-136 [facility] HospitalImpacto Tecnologias [id number] 07:58:00 Test Item Value Reference Range Interpretation Comments Bili Total (test code = Bili Total) 0.5 0.2-1.3 [facility] [place]ST[place] [address]NMVRR3486-86-10 07:58:00 Test Item Value Reference Range Interpretation Comments Calcium Lvl (test code = Calcium Lvl) 7.3 8.5-10.5 [facility] [place]ST[place] [id number] 07:58:00 Test Item Value Reference Range Interpretation Comments CO2 (test code = CO2) 28 24-32 [facility] ArlingtonStockpulse [id number] 07:58:00 Test Item Value Reference Range Interpretation Comments Total Protein (test code = Total 5.4 6.4-8.4 Protein) [facility] AudioATRI[facility] HEALTH SOUTHPARKJNVBJ3161-71-86 07:58:00 Test Item Value Reference Range Interpretation Comments Albumin Lvl (test code = Albumin Lvl) 2.7 3.5-5.0 [facility] ArlingtonStockpulse [id number] 07:58:00 Test Item Value Reference Range Interpretation Comments Glucose Lvl (test code = Glucose Lvl) 98 70-99 [facility] ArlingtonStock[facility] [id number] 07:58:00 Test Item Value Reference Range Interpretation Comments Potassium Lvl (test code = Potassium 3.5 3.5-5.1 Lvl) [facility]Source AudioATRIUM HEALTH SOUTHPARKQVUFJ1976-07-14 07:58:00 Test Item Value Reference Range Interpretation Comments Sodium Lvl (test code = Sodium Lvl) 140 135-145 [facility] ArlingtonStockpulse [id number] 07:58:00 Test Item Value Reference Range Interpretation Comments Chloride Lvl (test code = Chloride Lvl) 103 95-109 [facility]2018-05-23 07:58:00 Test Item Value Reference Range Interpretation Comments BUN (test code = BUN) 16 7-22 [facility]2018-05-23 07:58:00 Test Item Value Reference Range Interpretation Comments Creatinine Lvl (test code = Creatinine 0.80 0.50-1.40 Lvl) [facility]2018-05-23 07:58:00 Test Item Value Reference Range Interpretation Comments A/G Ratio (test code = A/G Ratio) 1.0 1 0.7-1.6 [place] [id number] 07:58:00 Test Item Value Reference Range Interpretation Comments Globulin (test code = Globulin) 2.7 2.7-4.2 [facility]2018-05-23 07:58:00 Test Item Value Reference Range Interpretation Comments B/C Ratio (test code = B/C Ratio) 20 1 6-25 [facility]2018-05-23 07:58:00 Test Item Value Reference Range Interpretation Comments AGAP (test code = AGAP) 12.5 10.0-20.0 [facility]2018-05-23 07:58:00 Test Item Value Reference Range Interpretation Comments Phosphorus (test code = Phosphorus) 3.5 2.5-4.5 [facility]2018-05-23 07:58:00 Test Item Value Reference Range Interpretation Comments Magnesium Lvl (test code = Magnesium 2.1 1.8-2.4 Lvl) [facility]LwqtnnxHXVGSLTQNP7613-35-69 07:58:00 Test Item Value Reference Range Interpretation Comments Platelet (test code = Platelet) 144 133-450 [facility] HospitalKfkcdjnHOXRNZZBXF0227-85-14 07:58:00 Test Item Value Reference Range Interpretation Comments MCHC (test code = MCHC) 35.5 32.0-36.0 [facility] HospitalBzexcujJTIUDBSFOO7437-10-65 07:58:00 Test Item Value Reference Range Interpretation Comments MPV (test code = MPV) 8.0 7.4-10.4 [facility] HospitalWqmcaptYPWDZZZVQN7801-23-79 07:58:00 Test Item Value Reference Range Interpretation Comments RDW (test code = RDW) 15.1 11.5-14.5 [facility] HospitalKgniknpLALNWLHRHR7314-68-94 07:58:00 Test Item Value Reference Range Interpretation Comments Hct (test code = Hct) 23.5 36.0-48.0 [facility] HospitalOnxindgKSHQGTERTO0574-98-01 07:58:00 Test Item Value Reference Range Interpretation Comments Hgb (test code = Hgb) 8.3 12.0-16.0 [facility]AxjsdhoGDKNBBQLZJ1914-85-93 07:58:00 Test Item Value Reference Range Interpretation Comments MCH (test code = MCH) 32.2 pg 27.0-31.0 [facility] HospitalOwpmxwfXXCDIUSJPF7825-47-80 07:58:00 Test Item Value Reference Range Interpretation Comments MCV (test code = MCV) 90.8 80.0-98.0 [facility] HospitalZhhmtsfXRFWOKOSNG1723-97-05 07:58:00 Test Item Value Reference Range Interpretation Comments RBC (test code = RBC) 2.59 4.20-5.40 [facility] HospitalVhydjbeRCBEIQXDCK4414-03-32 07:58:00 Test Item Value Reference Range Interpretation Comments WBC (test code = WBC) 9.8 3.7-10.4 [facility] HospitalPARATHYROID NEBKBJQ7773-51-01 07:58:00 Test Item Value Reference Range Interpretation Comments Ca Ion WB (test code = Ca Ion WB) 0.94 1.05-1.25 [facility] WTJSDOZ9812-78-23 07:58:00 Test Item Value Reference Range Interpretation Comments Ca Norm WB (test code = Ca Norm WB) 0.98 1.05-1.25 [facility] HospitalSPECIAL MINXBWLVH9648-25-94 07:58:00 Test Item Value Reference Range Interpretation Comments Hgb A1C (test code = Hgb A1C) 4.9 [facility] HospitalCHEM [id number] 07:58:00 Test Item Value Reference Range Interpretation Comments eGFR (test code = eGFR) 78 [facility] HospitalCHEM KPDBM1044-40-26 07:58:00 Test Item Value Reference Range Interpretation Comments AST (test code = AST) 29 See_Comment [Auto mated message] The system which ge nerated this result transmit matteo reference range : <=37. The reference range was not used to interpr et this result as miesha l/abnormal. [facility]2018-05-23 07:58:00 Test Item Value Reference Range Interpretation Comments ALT (test code = ALT) 22 See_Comment [Auto mated message] The system which ge nerated this result transmit matteo reference range : <=65. The reference range was not used to interpr et this result as miesha l/abnormal. [place] 848658-05-23 07:58:00 Test Item Value Reference Range Interpretation Comments Alk Phos (test code = Alk Phos) 41 39-136 [place] 848658-05-23 07:58:00 Test Item Value Reference Range Interpretation Comments Bili Total (test code = Bili Total) 0.5 0.2-1.3 [place] 848658-05-23 07:58:00 Test Item Value Reference Range Interpretation Comments Calcium Lvl (test code = Calcium Lvl) 7.3 8.5-10.5 [facility]2018-05-23 07:58:00 Test Item Value Reference Range Interpretation Comments CO2 (test code = CO2) 28 24-32 [facility]2018-05-23 07:58:00 Test Item Value Reference Range Interpretation Comments Total Protein (test code = Total 5.4 6.4-8.4 Protein) [facility]2018-05-23 07:58:00 Test Item Value Reference Range Interpretation Comments Albumin Lvl (test code = Albumin Lvl) 2.7 3.5-5.0 [facility]2018-05-23 07:58:00 Test Item Value Reference Range Interpretation Comments Glucose Lvl (test code = Glucose Lvl) 98 70-99 [facility]2018-05-23 07:58:00 Test Item Value Reference Range Interpretation Comments Potassium Lvl (test code = Potassium 3.5 3.5-5.1 Lvl) [facility]2018-05-23 07:58:00 Test Item Value Reference Range Interpretation Comments Sodium Lvl (test code = Sodium Lvl) 140 135-145 [facility]2018-05-23 07:58:00 Test Item Value Reference Range Interpretation Comments Chloride Lvl (test code = Chloride Lvl) 103 95-109 [facility]2018-05-23 07:58:00 Test Item Value Reference Range Interpretation Comments BUN (test code = BUN) 16 7-22 [facility]2018-05-23 07:58:00 Test Item Value Reference Range Interpretation Comments Creatinine Lvl (test code = Creatinine 0.80 0.50-1.40 Lvl) [facility]2018-05-23 07:58:00 Test Item Value Reference Range Interpretation Comments A/G Ratio (test code = A/G Ratio) 1.0 1 0.7-1.6 [facility]2018-05-23 07:58:00 Test Item Value Reference Range Interpretation Comments Globulin (test code = Globulin) 2.7 2.7-4.2 [facility]2018-05-23 07:58:00 Test Item Value Reference Range Interpretation Comments B/C Ratio (test code = B/C Ratio) 20 1 6-25 [place] 848658-05-23 07:58:00 Test Item Value Reference Range Interpretation Comments AGAP (test code = AGAP) 12.5 10.0-20.0 [facility]2018-05-23 07:58:00 Test Item Value Reference Range Interpretation Comments Phosphorus (test code = Phosphorus) 3.5 2.5-4.5 [facility]2018-05-23 07:58:00 Test Item Value Reference Range Interpretation Comments Magnesium Lvl (test code = Magnesium 2.1 1.8-2.4 Lvl) [facility] HospitalYucotwdCCZATARSRJ4285-69-39 07:58:00 Test Item Value Reference Range Interpretation Comments Platelet (test code = Platelet) 144 133-450 [facility] HospitalKzvkmbbWEFDPPBWHX3092-81-10 07:58:00 Test Item Value Reference Range Interpretation Comments MCHC (test code = MCHC) 35.5 32.0-36.0 [facility] HospitalAzmzyosDCZVRKVPNL1620-67-35 07:58:00 Test Item Value Reference Range Interpretation Comments MPV (test code = MPV) 8.0 7.4-10.4 [facility] HospitalEnqefkgFUTNSCLUJA8440-47-81 07:58:00 Test Item Value Reference Range Interpretation Comments RDW (test code = RDW) 15.1 11.5-14.5 [place] 287668-05-23 07:58:00 Test Item Value Reference Range Interpretation Comments Hct (test code = Hct) 23.5 36.0-48.0 [facility] HospitalEapdaaaOHEZDQQZEH9864-13-98 07:58:00 Test Item Value Reference Range Interpretation Comments Hgb (test code = Hgb) 8.3 12.0-16.0 [facility] HospitalQujqstdQBVOCJLRPA1250-92-01 07:58:00 Test Item Value Reference Range Interpretation Comments MCH (test code = MCH) 32.2 pg 27.0-31.0 [facility] HospitalImfgzxoYYAKHDAWMN2503-17-47 07:58:00 Test Item Value Reference Range Interpretation Comments MCV (test code = MCV) 90.8 80.0-98.0 [facility] HospitalTfrpfhkQEHOASSFKN6984-53-51 07:58:00 Test Item Value Reference Range Interpretation Comments RBC (test code = RBC) 2.59 4.20-5.40 [facility] HospitalFxkdsmnZYHKYGRCJW9715-10-82 07:58:00 Test Item Value Reference Range Interpretation Comments WBC (test code = WBC) 9.8 3.7-10.4 [facility]ATHY[facility]ID [id number] 07:58:00 Test Item Value Reference Range Interpretation Comments Ca Ion WB (test code = Ca Ion WB) 0.94 1.05-1.25 [facility] [id number] 07:58:00 Test Item Value Reference Range Interpretation Comments Ca Norm WB (test code = Ca Norm WB) 0.98 1.05-1.25 [facility] XLOOSMUBA1139-79-20 07:58:00 Test Item Value Reference Range Interpretation Comments Hgb A1C (test code = Hgb A1C) 4.9 [facility] [id number] 07:58:00 Test Item Value Reference Range Interpretation Comments eGFR (test code = eGFR) 78 [facility] [id number] 07:58:00 Test Item Value Reference Range Interpretation Comments AST (test code = AST) 29 See_Comment [Auto mated message] The system which ge nerated this result transmit matteo reference range : <=37. The reference range was not used to interpr et this result as miesha l/abnormal. [facility] DZSOX2806-37-12 07:58:00 Test Item Value Reference Range Interpretation Comments ALT (test code = ALT) 22 See_Comment [Auto mated message] The system which ge nerated this result transmit matteo reference range : <=65. The reference range was not used to interpr et this result as miesha l/abnormal. [facility]2018-05-23 07:58:00 Test Item Value Reference Range Interpretation Comments Alk Phos (test code = Alk Phos) 41 39-136 [facility]2018-05-23 07:58:00 Test Item Value Reference Range Interpretation Comments Bili Total (test code = Bili Total) 0.5 0.2-1.3 [facility]2018-05-23 07:58:00 Test Item Value Reference Range Interpretation Comments Calcium Lvl (test code = Calcium Lvl) 7.3 8.5-10.5 [place] 848658-05-23 07:58:00 Test Item Value Reference Range Interpretation Comments CO2 (test code = CO2) 28 24-32 [facility]2018-05-23 07:58:00 Test Item Value Reference Range Interpretation Comments Total Protein (test code = Total 5.4 6.4-8.4 Protein) [facility]2018-05-23 07:58:00 Test Item Value Reference Range Interpretation Comments Albumin Lvl (test code = Albumin Lvl) 2.7 3.5-5.0 [facility]2018-05-23 07:58:00 Test Item Value Reference Range Interpretation Comments Glucose Lvl (test code = Glucose Lvl) 98 70-99 [facility]2018-05-23 07:58:00 Test Item Value Reference Range Interpretation Comments Potassium Lvl (test code = Potassium 3.5 3.5-5.1 Lvl) [facility]2018-05-23 07:58:00 Test Item Value Reference Range Interpretation Comments Sodium Lvl (test code = Sodium Lvl) 140 135-145 [facility]2018-05-23 07:58:00 Test Item Value Reference Range Interpretation Comments Chloride Lvl (test code = Chloride Lvl) 103 95-109 [facility]2018-05-23 07:58:00 Test Item Value Reference Range Interpretation Comments BUN (test code = BUN) 16 7-22 [facility]2018-05-23 07:58:00 Test Item Value Reference Range Interpretation Comments Creatinine Lvl (test code = Creatinine 0.80 0.50-1.40 Lvl) [facility]2018-05-23 07:58:00 Test Item Value Reference Range Interpretation Comments A/G Ratio (test code = A/G Ratio) 1.0 1 0.7-1.6 [facility]2018-05-23 07:58:00 Test Item Value Reference Range Interpretation Comments Globulin (test code = Globulin) 2.7 2.7-4.2 [facility]2018-05-23 07:58:00 Test Item Value Reference Range Interpretation Comments B/C Ratio (test code = B/C Ratio) 20 1 6-25 [facility]2018-05-23 07:58:00 Test Item Value Reference Range Interpretation Comments AGAP (test code = AGAP) 12.5 10.0-20.0 [facility]2018-05-23 07:58:00 Test Item Value Reference Range Interpretation Comments Phosphorus (test code = Phosphorus) 3.5 2.5-4.5 [facility]2018-05-23 07:58:00 Test Item Value Reference Range Interpretation Comments Magnesium Lvl (test code = Magnesium 2.1 1.8-2.4 Lvl) [facility] HospitalPiwnvmzYIGXXHHYXH2315-74-08 07:58:00 Test Item Value Reference Range Interpretation Comments Platelet (test code = Platelet) 144 133-450 [facility] HospitalIdrhmewIJACXEXTKW3347-03-68 07:58:00 Test Item Value Reference Range Interpretation Comments MCHC (test code = MCHC) 35.5 32.0-36.0 [facility] HospitalHxqrgvfIFHJZHGSUD3934-92-77 07:58:00 Test Item Value Reference Range Interpretation Comments MPV (test code = MPV) 8.0 7.4-10.4 [facility] HospitalBzlsepiLTYOWNJXXC2274-51-42 07:58:00 Test Item Value Reference Range Interpretation Comments RDW (test code = RDW) 15.1 11.5-14.5 [facility] HospitalMqipvxlYBCOQGIRBY1322-65-12 07:58:00 Test Item Value Reference Range Interpretation Comments Hct (test code = Hct) 23.5 36.0-48.0 [facility] HospitalZvxwbjjZIRRJMAGLG1887-38-51 07:58:00 Test Item Value Reference Range Interpretation Comments Hgb (test code = Hgb) 8.3 12.0-16.0 [place] 287668-05-23 07:58:00 Test Item Value Reference Range Interpretation Comments MCH (test code = MCH) 32.2 pg 27.0-31.0 [facility] HospitalVjrarlvJDXEGQAXUV4292-13-13 07:58:00 Test Item Value Reference Range Interpretation Comments MCV (test code = MCV) 90.8 80.0-98.0 [facility] HospitalKnfwbowVDCVCJFWGZ7334-10-07 07:58:00 Test Item Value Reference Range Interpretation Comments RBC (test code = RBC) 2.59 4.20-5.40 [facility] HospitalParwmzkEJIUGNTHED9985-32-84 07:58:00 Test Item Value Reference Range Interpretation Comments WBC (test code = WBC) 9.8 3.7-10.4 [facility] HospitalPARATHYROID XOKMWAX7894-59-62 07:58:00 Test Item Value Reference Range Interpretation Comments Ca Ion WB (test code = Ca Ion WB) 0.94 1.05-1.25 [facility] [id number] 07:58:00 Test Item Value Reference Range Interpretation Comments Ca Norm WB (test code = Ca Norm WB) 0.98 1.05-1.25 [facility]IAL NHNXEMNWW8236-78-38 07:58:00 Test Item Value Reference Range Interpretation Comments Hgb A1C (test code = Hgb A1C) 4.9 [facility] HospitalImpacto Tecnologias [id number] 07:58:00 Test Item Value Reference Range Interpretation Comments eGFR (test code = eGFR) 78 [facility] HospitalImp[facility] [id number] 07:58:00 Test Item Value Reference Range Interpretation Comments AST (test code = AST) 29 See_Comment [Auto mated message] The system which ge nerated this result transmit matteo reference range : <=37. The reference range was not used to interpr et this result as miesha l/abnormal. [facility] DJGVL5422-19-09 07:58:00 Test Item Value Reference Range Interpretation Comments ALT (test code = ALT) 22 See_Comment [Auto mated message] The system which ge nerated this result transmit matteo reference range : <=65. The reference range was not used to interpr et this result as miesha l/abnormal. [facility] [id number] 07:58:00 Test Item Value Reference Range Interpretation Comments Alk Phos (test code = Alk Phos) 41 39-136 [facility]2018-05-23 07:58:00 Test Item Value Reference Range Interpretation Comments Bili Total (test code = Bili Total) 0.5 0.2-1.3 [facility]2018-05-23 07:58:00 Test Item Value Reference Range Interpretation Comments Calcium Lvl (test code = Calcium Lvl) 7.3 8.5-10.5 [facility]2018-05-23 07:58:00 Test Item Value Reference Range Interpretation Comments CO2 (test code = CO2) 28 24-32 [facility]2018-05-23 07:58:00 Test Item Value Reference Range Interpretation Comments Total Protein (test code = Total 5.4 6.4-8.4 Protein) [facility]2018-05-23 07:58:00 Test Item Value Reference Range Interpretation Comments Albumin Lvl (test code = Albumin Lvl) 2.7 3.5-5.0 [facility]2018-05-23 07:58:00 Test Item Value Reference Range Interpretation Comments Glucose Lvl (test code = Glucose Lvl) 98 70-99 [facility]2018-05-23 07:58:00 Test Item Value Reference Range Interpretation Comments Potassium Lvl (test code = Potassium 3.5 3.5-5.1 Lvl) [facility]2018-05-23 07:58:00 Test Item Value Reference Range Interpretation Comments Sodium Lvl (test code = Sodium Lvl) 140 135-145 [facility]2018-05-23 07:58:00 Test Item Value Reference Range Interpretation Comments Chloride Lvl (test code = Chloride Lvl) 103 95-109 [facility]2018-05-23 07:58:00 Test Item Value Reference Range Interpretation Comments BUN (test code = BUN) 16 7-22 [facility]2018-05-23 07:58:00 Test Item Value Reference Range Interpretation Comments Creatinine Lvl (test code = Creatinine 0.80 0.50-1.40 Lvl) [facility]2018-05-23 07:58:00 Test Item Value Reference Range Interpretation Comments A/G Ratio (test code = A/G Ratio) 1.0 1 0.7-1.6 [facility]2018-05-23 07:58:00 Test Item Value Reference Range Interpretation Comments Globulin (test code = Globulin) 2.7 2.7-4.2 [facility]2018-05-23 07:58:00 Test Item Value Reference Range Interpretation Comments B/C Ratio (test code = B/C Ratio) 20 1 6-25 [facility]2018-05-23 07:58:00 Test Item Value Reference Range Interpretation Comments AGAP (test code = AGAP) 12.5 10.0-20.0 [facility]2018-05-23 07:58:00 Test Item Value Reference Range Interpretation Comments Phosphorus (test code = Phosphorus) 3.5 2.5-4.5 [facility]2018-05-23 07:58:00 Test Item Value Reference Range Interpretation Comments Magnesium Lvl (test code = Magnesium 2.1 1.8-2.4 Lvl) [facility] HospitalOuftdypIZQCQSYBVN8068-50-03 07:58:00 Test Item Value Reference Range Interpretation Comments Platelet (test code = Platelet) 144 133-450 [facility] HospitalOgoptooSTBWPDNPWC5856-70-78 07:58:00 Test Item Value Reference Range Interpretation Comments MCHC (test code = MCHC) 35.5 32.0-36.0 [facility] HospitalYpmhnpmZRHYMNFTFK1503-89-94 07:58:00 Test Item Value Reference Range Interpretation Comments MPV (test code = MPV) 8.0 7.4-10.4 [facility] HospitalYqguofeRRKNTZJNJY9662-90-98 07:58:00 Test Item Value Reference Range Interpretation Comments RDW (test code = RDW) 15.1 11.5-14.5 [facility] HospitalWtxagoxJTPUPRSNFZ2893-08-40 07:58:00 Test Item Value Reference Range Interpretation Comments Hct (test code = Hct) 23.5 36.0-48.0 [facility] HospitalBqzaypqNIQQOQGZDY8598-02-38 07:58:00 Test Item Value Reference Range Interpretation Comments Hgb (test code = Hgb) 8.3 12.0-16.0 [facility] HospitalUeveapkYTMUCVLBDO9078-27-18 07:58:00 Test Item Value Reference Range Interpretation Comments MCH (test code = MCH) 32.2 pg 27.0-31.0 [facility] HospitalBjncucoOXGXHYEBLR8624-57-08 07:58:00 Test Item Value Reference Range Interpretation Comments MCV (test code = MCV) 90.8 80.0-98.0 [facility] HospitalEiibyhmMBWPQDSJPP4293-55-20 07:58:00 Test Item Value Reference Range Interpretation Comments RBC (test code = RBC) 2.59 4.20-5.40 [facility] HospitalGzsnwqhAMHPWZNSKW3151-93-78 07:58:00 Test Item Value Reference Range Interpretation Comments WBC (test code = WBC) 9.8 3.7-10.4 [facility] [id number] 07:58:00 Test Item Value Reference Range Interpretation Comments Ca Ion WB (test code = Ca Ion WB) 0.94 1.05-1.25 [facility] AFYUDKL5597-89-75 07:58:00 Test Item Value Reference Range Interpretation Comments Ca Norm WB (test code = Ca Norm WB) 0.98 1.05-1.25 [facility]IAL LDGAKDIET2275-04-99 07:58:00 Test Item Value Reference Range Interpretation Comments Hgb A1C (test code = Hgb A1C) 4.9 [facility] HospitalAfrwqtlVMFPTPVVVG4575-87-58 19:26:00 Test Item Value Reference Range Interpretation Comments Hgb (test code = Hgb) 9.7 12.0-16.0 [facility] HospitalJrduaasUBHQIGUKXD9799-58-90 19:26:00 Test Item Value Reference Range Interpretation Comments Hgb (test code = Hgb) 9.7 12.0-16.0 [facility] HospitalCvvklggCTOVNQAQFX4291-72-67 19:26:00 Test Item Value Reference Range Interpretation Comments Hgb (test code = Hgb) 9.7 12.0-16.0 [facility] HospitalMmreqxtKYKAKYGAUQ2456-32-06 19:26:00 Test Item Value Reference Range Interpretation Comments Hgb (test code = Hgb) 9.7 12.0-16.0 [facility] HospitalEvztfufPBODBSLRCF2194-63-50 19:26:00 Test Item Value Reference Range Interpretation Comments Hgb (test code = Hgb) 9.7 12.0-16.0 [facility] HospitalAevgkrvWSCRPRIXRQ6123-98-29 19:26:00 Test Item Value Reference Range Interpretation Comments Hgb (test code = Hgb) 9.7 12.0-16.0 [facility] BANK FCQGLXJ9148-05-78 10:31:00 Test Item Value Reference Range Interpretation Comments RBC product (test code Product available = RBC product) (11/15/17 5:31 AM) [facility] [id number] 10:31:00 Test Item Value Reference Range Interpretation Comments RBC product (test code Product available = RBC product) (11/15/17 5:31 AM) [facility] [id number] 10:31:00 Test Item Value Reference Range Interpretation Comments RBC product (test code Product available = RBC product) (11/15/17 5:31 AM) [facility] [id number] 10:31:00 Test Item Value Reference Range Interpretation Comments RBC product (test code Product available = RBC product) (11/15/17 5:31 AM) [facility] [id number] 10:31:00 Test Item Value Reference Range Interpretation Comments RBC product (test code Product available = RBC product) (11/15/17 5:31 AM) [facility] [id number] 10:31:00 Test Item Value Reference Range Interpretation Comments RBC product (test code Product available = RBC product) (11/15/17 5:31 AM) [facility] HospitalMkdnexnQGXYFRDZHT7450-05-89 09:42:00 Test Item Value Reference Range Interpretation Comments Segs-Bands # (test code = Segs-Bands #) 6.1 1.5-8.1 [facility] HospitalWhbbtzvAEZCMCRQRP2367-33-65 09:42:00 Test Item Value Reference Range Interpretation Comments Basophils # (test code 0.0 See_Comment [Aut omated message] The = Basophils #) system which generated this result tra nsmitted reference range : <=0.2. The reference r katie was not used to int erpret this result as normal/abnormal . [facility] HospitalObaswenMAWNVHMHHO7095-31-98 09:42:00 Test Item Value Reference Range Interpretation Comments Eosinophils # (test code 0.0 See_Comment [A utomated message] The = Eosinophils #) system whic h generated this result tra nsmitted reference range : <=0.5. The reference r katie was not used to int erpret this result as normal/abnormal . [facility] HospitalMepbrzwDULUZSYHPY0027-85-87 09:42:00 Test Item Value Reference Range Interpretation Comments Monocytes # (test code 0.5 See_Comment [Aut omated message] The = Monocytes #) system which generated this result tra nsmitted reference range : <=0.8. The reference r katie was not used to int erpret this result as normal/abnormal . [facility] HospitalDalncohQWDXBQRKMZ6747-13-19 09:42:00 Test Item Value Reference Range Interpretation Comments Lymphocytes # (test code = Lymphocytes 0.9 1.0-5.5 #) [facility] HospitalCixhckcUUSWHRFDJS4566-93-43 09:42:00 Test Item Value Reference Range Interpretation Comments Eosinophils (test code = 0.6 See_Comment [A utomated message] The Eosinophils) system which ge nerated this result tra nsmitted reference range : <=4.0. The reference r katie was not used to int erpret this result as normal/abnormal . [facility] HospitalFcikmufTJUQIYUPSC7307-43-58 09:42:00 Test Item Value Reference Range Interpretation Comments Monocytes (test code = Monocytes) 6.4 2.0-12.0 [facility] HospitalQgjzxvuWIQBBIWERK0292-34-21 09:42:00 Test Item Value Reference Range Interpretation Comments Segs (test code = Segs) 81.3 45.0-75.0 [facility] HospitalEtwwjrrFUJKWSHGJH9649-97-23 09:42:00 Test Item Value Reference Range Interpretation Comments Lymphocytes (test code = Lymphocytes) 11.6 20.0-40.0 [facility] HospitalUrsskbyVWADKLLXPZ1060-25-92 09:42:00 Test Item Value Reference Range Interpretation Comments Plt Morph (test code = Normal (11/15/17 4:42 Plt Morph) AM) [facility] HospitalWxpmuvbSLOSQMRIVI1722-02-78 09:42:00 Test Item Value Reference Range Interpretation Comments RBC Morph (test code = Normal (11/15/17 4:42 RBC Morph) AM) [facility] HospitalCesefhdMRJCVLXSBK2669-64-49 09:42:00 Test Item Value Reference Range Interpretation Comments Basophils (test code = 0.1 See_Comment [Aut omated message] The Basophils) system which ge nerated this result tra nsmitted reference range : <=1.0. The reference r katie was not used to int erpret this result as normal/abnormal . [facility] HospitalNkpgyfmRCEMJXGIRI3879-22-49 09:42:00 Test Item Value Reference Range Interpretation Comments WBC (test code = WBC) 7.5 3.7-10.4 [facility] HospitalUbvncvbLKDUNCWZXB5166-23-77 09:42:00 Test Item Value Reference Range Interpretation Comments RDW (test code = RDW) 13.1 11.5-14.5 [facility] HospitalLdwocttZCEKRQEFRM1116-90-27 09:42:00 Test Item Value Reference Range Interpretation Comments MCH (test code = MCH) 33.1 pg 27.0-31.0 [facility] HospitalGyvtouzPHKMYGPKCW7571-03-88 09:42:00 Test Item Value Reference Range Interpretation Comments MCHC (test code = MCHC) 35.9 32.0-36.0 [facility] HospitalCytxfkgGUOWYHOORQ7035-81-55 09:42:00 Test Item Value Reference Range Interpretation Comments MCV (test code = MCV) 92.4 80.0-98.0 [facility] HospitalEonhcayLUHYARCJEY1137-51-88 09:42:00 Test Item Value Reference Range Interpretation Comments Hct (test code = Hct) 16.7 36.0-48.0 [facility] HospitalDmwdmndYTBBPXXYZH8147-66-53 09:42:00 Test Item Value Reference Range Interpretation Comments RBC (test code = RBC) 1.81 4.20-5.40 [facility] HospitalQihnaqdPIRYLIOLSF3179-27-59 09:42:00 Test Item Value Reference Range Interpretation Comments Platelet (test code = Platelet) 168 133-450 [facility] HospitalJdpoogqAAYTOSOKQM6147-99-24 09:42:00 Test Item Value Reference Range Interpretation Comments MPV (test code = MPV) 7.6 7.4-10.4 [facility] HospitalHmldnvjTQADVXSYTH1435-20-68 09:42:00 Test Item Value Reference Range Interpretation Comments Segs-Bands # (test code = Segs-Bands #) 6.1 1.5-8.1 [facility] HospitalCgfujnbFPYYUOSZVA1657-42-58 09:42:00 Test Item Value Reference Range Interpretation Comments Basophils # (test code 0.0 See_Comment [Aut omated message] The = Basophils #) system which generated this result tra nsmitted reference range : <=0.2. The reference r katie was not used to int erpret this result as normal/abnormal . [facility] HospitalKgatccyZSUANQQXTO8069-36-89 09:42:00 Test Item Value Reference Range Interpretation Comments Eosinophils # (test code 0.0 See_Comment [A utomated message] The = Eosinophils #) system whic h generated this result tra nsmitted reference range : <=0.5. The reference r katie was not used to int erpret this result as normal/abnormal . [facility] HospitalVzeqeocEBYEMWEUQU8177-12-77 09:42:00 Test Item Value Reference Range Interpretation Comments Monocytes # (test code 0.5 See_Comment [Aut omated message] The = Monocytes #) system which generated this result tra nsmitted reference range : <=0.8. The reference r katie was not used to int erpret this result as normal/abnormal . [facility] HospitalCzdtjwjXDFSQSXKNU2205-38-31 09:42:00 Test Item Value Reference Range Interpretation Comments Lymphocytes # (test code = Lymphocytes 0.9 1.0-5.5 #) [facility] HospitalFbjkdrvNLCVWXDBRF9098-35-30 09:42:00 Test Item Value Reference Range Interpretation Comments Eosinophils (test code = 0.6 See_Comment [A utomated message] The Eosinophils) system which ge nerated this result tra nsmitted reference range : <=4.0. The reference r katie was not used to int erpret this result as normal/abnormal . [facility] HospitalVdjcwmqVTQEXPVBIV7176-69-47 09:42:00 Test Item Value Reference Range Interpretation Comments Monocytes (test code = Monocytes) 6.4 2.0-12.0 [facility] HospitalPalybqxBUDEJJHFCT5443-85-61 09:42:00 Test Item Value Reference Range Interpretation Comments Segs (test code = Segs) 81.3 45.0-75.0 [facility] HospitalCyaypsfCGAEFLCDWU0430-27-34 09:42:00 Test Item Value Reference Range Interpretation Comments Lymphocytes (test code = Lymphocytes) 11.6 20.0-40.0 [facility] HospitalVkmvlsrUSJHULJFTI7567-94-86 09:42:00 Test Item Value Reference Range Interpretation Comments Plt Morph (test code = Normal (11/15/17 4:42 Plt Morph) AM) [facility] HospitalBzyiywlABKKSXKIDW1095-41-15 09:42:00 Test Item Value Reference Range Interpretation Comments RBC Morph (test code = Normal (11/15/17 4:42 RBC Morph) AM) [facility] HospitalAajzjapYCXXBRFHUB9743-92-42 09:42:00 Test Item Value Reference Range Interpretation Comments Basophils (test code = 0.1 See_Comment [Aut omated message] The Basophils) system which ge nerated this result tra nsmitted reference range : <=1.0. The reference r katie was not used to int erpret this result as normal/abnormal . [facility] HospitalNifwtniPKTSGZUXXL1570-91-90 09:42:00 Test Item Value Reference Range Interpretation Comments WBC (test code = WBC) 7.5 3.7-10.4 [facility] HospitalBejowykXCXAPVICZJ5059-96-35 09:42:00 Test Item Value Reference Range Interpretation Comments RDW (test code = RDW) 13.1 11.5-14.5 [facility] HospitalWjtrosrGIUJYIAQBV6632-15-64 09:42:00 Test Item Value Reference Range Interpretation Comments MCH (test code = MCH) 33.1 pg 27.0-31.0 [facility] HospitalYvexfrmLQXSWRXEJQ6995-54-53 09:42:00 Test Item Value Reference Range Interpretation Comments MCHC (test code = MCHC) 35.9 32.0-36.0 [facility] HospitalHobwnejJVUPPIZODL6483-23-20 09:42:00 Test Item Value Reference Range Interpretation Comments MCV (test code = MCV) 92.4 80.0-98.0 [facility] HospitalHesiaiaGQTWKFBHOD2569-47-59 09:42:00 Test Item Value Reference Range Interpretation Comments Hct (test code = Hct) 16.7 36.0-48.0 [facility] HospitalFkckdfoTJUQKISVSX0675-63-00 09:42:00 Test Item Value Reference Range Interpretation Comments RBC (test code = RBC) 1.81 4.20-5.40 [facility] HospitalWjuykhaHEWSSKAHDV0398-13-26 09:42:00 Test Item Value Reference Range Interpretation Comments Platelet (test code = Platelet) 168 133-450 [facility] HospitalHwwqlgmIROSRGSUDQ4526-31-95 09:42:00 Test Item Value Reference Range Interpretation Comments MPV (test code = MPV) 7.6 7.4-10.4 [facility] HospitalBcikeotMQYHNUCTOO2407-11-21 09:42:00 Test Item Value Reference Range Interpretation Comments Segs-Bands # (test code = Segs-Bands #) 6.1 1.5-8.1 [facility] HospitalRfexwgtKEBCCDCZWP6530-65-64 09:42:00 Test Item Value Reference Range Interpretation Comments Basophils # (test code 0.0 See_Comment [Aut omated message] The = Basophils #) system which generated this result tra nsmitted reference range : <=0.2. The reference r katie was not used to int erpret this result as normal/abnormal . [facility] HospitalJuljyrhNNILKYLPKI5487-72-76 09:42:00 Test Item Value Reference Range Interpretation Comments Eosinophils # (test code 0.0 See_Comment [A utomated message] The = Eosinophils #) system whic h generated this result tra nsmitted reference range : <=0.5. The reference r katie was not used to int erpret this result as normal/abnormal . [facility] HospitalRvsoqukACJAAADTNR7214-98-85 09:42:00 Test Item Value Reference Range Interpretation Comments Monocytes # (test code 0.5 See_Comment [Aut omated message] The = Monocytes #) system which generated this result tra nsmitted reference range : <=0.8. The reference r katie was not used to int erpret this result as normal/abnormal . [facility] HospitalFtulokjABTEVIVKSD6387-01-69 09:42:00 Test Item Value Reference Range Interpretation Comments Lymphocytes # (test code = Lymphocytes 0.9 1.0-5.5 #) [facility] HospitalVowzznbGYFIMPMEKH3597-96-90 09:42:00 Test Item Value Reference Range Interpretation Comments Eosinophils (test code = 0.6 See_Comment [A utomated message] The Eosinophils) system which ge nerated this result tra nsmitted reference range : <=4.0. The reference r katie was not used to int erpret this result as normal/abnormal . [facility] HospitalCngkiifOFDGYFIDVL5111-17-74 09:42:00 Test Item Value Reference Range Interpretation Comments Monocytes (test code = Monocytes) 6.4 2.0-12.0 [facility] HospitalUsckkfjMLDCOKJTFV6680-32-91 09:42:00 Test Item Value Reference Range Interpretation Comments Segs (test code = Segs) 81.3 45.0-75.0 [facility] HospitalPghfaqcSKEYUZFLWY6340-61-14 09:42:00 Test Item Value Reference Range Interpretation Comments Lymphocytes (test code = Lymphocytes) 11.6 20.0-40.0 [facility] HospitalZcdaczuONLXHFBJVX3720-28-26 09:42:00 Test Item Value Reference Range Interpretation Comments Plt Morph (test code = Normal (11/15/17 4:42 Plt Morph) AM) [facility] HospitalQqghovjGCIJRWJQNG3690-10-10 09:42:00 Test Item Value Reference Range Interpretation Comments RBC Morph (test code = Normal (11/15/17 4:42 RBC Morph) AM) [facility] HospitalQomrjtrKQAFCTXVQL5364-46-77 09:42:00 Test Item Value Reference Range Interpretation Comments Basophils (test code = 0.1 See_Comment [Aut omated message] The Basophils) system which ge nerated this result tra nsmitted reference range : <=1.0. The reference r katie was not used to int erpret this result as normal/abnormal . [facility] HospitalEusrbsmOMZINEINCJ9031-78-51 09:42:00 Test Item Value Reference Range Interpretation Comments WBC (test code = WBC) 7.5 3.7-10.4 [facility] HospitalLqdznfpHZKWYXWQPG3738-78-60 09:42:00 Test Item Value Reference Range Interpretation Comments RDW (test code = RDW) 13.1 11.5-14.5 [facility] HospitalVmflegnHLVFFAFIHX6638-29-74 09:42:00 Test Item Value Reference Range Interpretation Comments MCH (test code = MCH) 33.1 pg 27.0-31.0 [facility] HospitalHaqppwaONIVJJOMUN2736-68-32 09:42:00 Test Item Value Reference Range Interpretation Comments MCHC (test code = MCHC) 35.9 32.0-36.0 [facility] HospitalDcwxhqbJTNPMOZUPN3669-49-17 09:42:00 Test Item Value Reference Range Interpretation Comments MCV (test code = MCV) 92.4 80.0-98.0 [facility] HospitalVlvuznfIENFAJBEUG2725-48-31 09:42:00 Test Item Value Reference Range Interpretation Comments Hct (test code = Hct) 16.7 36.0-48.0 [facility] HospitalNxtilbpMBYOZPKMMI5950-33-54 09:42:00 Test Item Value Reference Range Interpretation Comments RBC (test code = RBC) 1.81 4.20-5.40 [facility] HospitalLrnordrZPHECDHVCT8311-28-05 09:42:00 Test Item Value Reference Range Interpretation Comments Platelet (test code = Platelet) 168 133-450 [facility] HospitalTznzsudZSREYDNTSK1239-28-20 09:42:00 Test Item Value Reference Range Interpretation Comments MPV (test code = MPV) 7.6 7.4-10.4 [facility] HospitalLwqplecMHJBYBGXEJ9811-97-39 09:42:00 Test Item Value Reference Range Interpretation Comments Segs-Bands # (test code = Segs-Bands #) 6.1 1.5-8.1 [facility] HospitalHzvccliNUGJKXTNOW0576-43-60 09:42:00 Test Item Value Reference Range Interpretation Comments Basophils # (test code 0.0 See_Comment [Aut omated message] The = Basophils #) system which generated this result tra nsmitted reference range : <=0.2. The reference r katie was not used to int erpret this result as normal/abnormal . [facility] HospitalGlekqijJWMTEFHHFI5522-85-86 09:42:00 Test Item Value Reference Range Interpretation Comments Eosinophils # (test code 0.0 See_Comment [A utomated message] The = Eosinophils #) system whic h generated this result tra nsmitted reference range : <=0.5. The reference r katie was not used to int erpret this result as normal/abnormal . [facility] HospitalPcquewqPMWSQUDBEF2979-53-33 09:42:00 Test Item Value Reference Range Interpretation Comments Monocytes # (test code 0.5 See_Comment [Aut omated message] The = Monocytes #) system which generated this result tra nsmitted reference range : <=0.8. The reference r katie was not used to int erpret this result as normal/abnormal . [facility] HospitalPkmaivcCSBVMTVDGU4090-72-96 09:42:00 Test Item Value Reference Range Interpretation Comments Lymphocytes # (test code = Lymphocytes 0.9 1.0-5.5 #) [facility] HospitalJdttcttCLJMYMJDRZ5394-91-63 09:42:00 Test Item Value Reference Range Interpretation Comments Eosinophils (test code = 0.6 See_Comment [A utomated message] The Eosinophils) system which ge nerated this result tra nsmitted reference range : <=4.0. The reference r katie was not used to int erpret this result as normal/abnormal . [facility] HospitalRfqviatHDRWLYXRMU8375-85-66 09:42:00 Test Item Value Reference Range Interpretation Comments Monocytes (test code = Monocytes) 6.4 2.0-12.0 [facility] HospitalKijtmaaRUPONDRJNA6937-81-86 09:42:00 Test Item Value Reference Range Interpretation Comments Segs (test code = Segs) 81.3 45.0-75.0 [facility] HospitalNiisjpiINXOJYFVMZ0261-58-03 09:42:00 Test Item Value Reference Range Interpretation Comments Lymphocytes (test code = Lymphocytes) 11.6 20.0-40.0 [facility] HospitalZmkffbvWCQPOESEGR1714-24-90 09:42:00 Test Item Value Reference Range Interpretation Comments Plt Morph (test code = Normal (11/15/17 4:42 Plt Morph) AM) [facility] HospitalUzukrguIIMMWZEDDR9986-33-47 09:42:00 Test Item Value Reference Range Interpretation Comments RBC Morph (test code = Normal (11/15/17 4:42 RBC Morph) AM) [facility] HospitalIuwqmxeSSKXUZCWWF7236-39-58 09:42:00 Test Item Value Reference Range Interpretation Comments Basophils (test code = 0.1 See_Comment [Aut omated message] The Basophils) system which ge nerated this result tra nsmitted reference range : <=1.0. The reference r katie was not used to int erpret this result as normal/abnormal . [facility] HospitalBpdzmshRWABHPGLAD0792-72-01 09:42:00 Test Item Value Reference Range Interpretation Comments WBC (test code = WBC) 7.5 3.7-10.4 [facility] HospitalAejwcerVQVGFDFTTZ2904-84-52 09:42:00 Test Item Value Reference Range Interpretation Comments RDW (test code = RDW) 13.1 11.5-14.5 [facility] HospitalIsauwjeKHJNWYHDSA1333-78-92 09:42:00 Test Item Value Reference Range Interpretation Comments MCH (test code = MCH) 33.1 pg 27.0-31.0 [facility] HospitalXmrhnxcVNOTSFATGH7105-39-62 09:42:00 Test Item Value Reference Range Interpretation Comments MCHC (test code = MCHC) 35.9 32.0-36.0 [facility] HospitalWznaikrNSLMWCJVIM5990-30-73 09:42:00 Test Item Value Reference Range Interpretation Comments MCV (test code = MCV) 92.4 80.0-98.0 [facility] HospitalBzauvwzRFXTKNWKEE0825-06-15 09:42:00 Test Item Value Reference Range Interpretation Comments Hct (test code = Hct) 16.7 36.0-48.0 [facility] HospitalZplilktIIRDOOWPAH7318-59-00 09:42:00 Test Item Value Reference Range Interpretation Comments RBC (test code = RBC) 1.81 4.20-5.40 [facility] HospitalLwflvtaVYAUNIISRM5880-41-41 09:42:00 Test Item Value Reference Range Interpretation Comments Platelet (test code = Platelet) 168 133-450 [facility] HospitalFlikdyuPTGDMQFOIC5353-84-23 09:42:00 Test Item Value Reference Range Interpretation Comments MPV (test code = MPV) 7.6 7.4-10.4 [facility] HospitalPdtlucxQRGXCRNGXN4266-37-18 09:42:00 Test Item Value Reference Range Interpretation Comments Segs-Bands # (test code = Segs-Bands #) 6.1 1.5-8.1 [facility] HospitalNqscurwZBFOVQCPVP2897-46-34 09:42:00 Test Item Value Reference Range Interpretation Comments Basophils # (test code 0.0 See_Comment [Aut omated message] The = Basophils #) system which generated this result tra nsmitted reference range : <=0.2. The reference r katie was not used to int erpret this result as normal/abnormal . [facility] HospitalIjmmjomVKGDFWGCBA6777-32-05 09:42:00 Test Item Value Reference Range Interpretation Comments Eosinophils # (test code 0.0 See_Comment [A utomated message] The = Eosinophils #) system whic h generated this result tra nsmitted reference range : <=0.5. The reference r katie was not used to int erpret this result as normal/abnormal . [facility] HospitalHqzdpfhHVNTDETTRM1873-80-81 09:42:00 Test Item Value Reference Range Interpretation Comments Monocytes # (test code 0.5 See_Comment [Aut omated message] The = Monocytes #) system which generated this result tra nsmitted reference range : <=0.8. The reference r katie was not used to int erpret this result as normal/abnormal . [facility] HospitalYpfkixuBIZWOKRFWV8086-89-42 09:42:00 Test Item Value Reference Range Interpretation Comments Lymphocytes # (test code = Lymphocytes 0.9 1.0-5.5 #) [facility] HospitalRgnhvnwMOQMXTDZDR3574-65-09 09:42:00 Test Item Value Reference Range Interpretation Comments Eosinophils (test code = 0.6 See_Comment [A utomated message] The Eosinophils) system which ge nerated this result tra nsmitted reference range : <=4.0. The reference r katie was not used to int erpret this result as normal/abnormal . [facility] HospitalAerflorZHVRRQOVUW1315-29-87 09:42:00 Test Item Value Reference Range Interpretation Comments Monocytes (test code = Monocytes) 6.4 2.0-12.0 [facility] HospitalVeckoxiPZIFVUDQFD4594-27-89 09:42:00 Test Item Value Reference Range Interpretation Comments Segs (test code = Segs) 81.3 45.0-75.0 [facility] HospitalMturhxgERZOWHKVOI5559-66-28 09:42:00 Test Item Value Reference Range Interpretation Comments Lymphocytes (test code = Lymphocytes) 11.6 20.0-40.0 [facility] HospitalHtapgjqBQIQYVUHEN1123-86-14 09:42:00 Test Item Value Reference Range Interpretation Comments Plt Morph (test code = Normal (11/15/17 4:42 Plt Morph) AM) [facility] HospitalTtobrblQLJCTLEUFC5468-11-14 09:42:00 Test Item Value Reference Range Interpretation Comments RBC Morph (test code = Normal (11/15/17 4:42 RBC Morph) AM) [facility] HospitalWlanqfqVLBPGNWVKA4489-97-60 09:42:00 Test Item Value Reference Range Interpretation Comments Basophils (test code = 0.1 See_Comment [Aut omated message] The Basophils) system which ge nerated this result tra nsmitted reference range : <=1.0. The reference r katie was not used to int erpret this result as normal/abnormal . [facility] HospitalVvemkudKVLTLQFQQA7217-97-78 09:42:00 Test Item Value Reference Range Interpretation Comments WBC (test code = WBC) 7.5 3.7-10.4 [facility] HospitalTmodlwlUJGUMNTSYI3545-87-38 09:42:00 Test Item Value Reference Range Interpretation Comments RDW (test code = RDW) 13.1 11.5-14.5 [facility] HospitalMddkxnaVKCWBLFARB0347-80-15 09:42:00 Test Item Value Reference Range Interpretation Comments MCH (test code = MCH) 33.1 pg 27.0-31.0 [facility] HospitalMiytdvtNNPWBLSQVJ1256-67-74 09:42:00 Test Item Value Reference Range Interpretation Comments MCHC (test code = MCHC) 35.9 32.0-36.0 [facility] HospitalXkpupdgROVLQGPPLP3443-76-03 09:42:00 Test Item Value Reference Range Interpretation Comments MCV (test code = MCV) 92.4 80.0-98.0 [facility] HospitalMujstusHCAHTNJGWL4585-83-74 09:42:00 Test Item Value Reference Range Interpretation Comments Hct (test code = Hct) 16.7 36.0-48.0 [facility] HospitalOywyqaoQINKCGQMDX3778-02-18 09:42:00 Test Item Value Reference Range Interpretation Comments RBC (test code = RBC) 1.81 4.20-5.40 [facility] HospitalZruigidPIIKCBOLHB5546-81-60 09:42:00 Test Item Value Reference Range Interpretation Comments Platelet (test code = Platelet) 168 133-450 [facility] HospitalGmlkmuhJGLSMUDARU9469-90-39 09:42:00 Test Item Value Reference Range Interpretation Comments MPV (test code = MPV) 7.6 7.4-10.4 [place] 287668-05-22 09:42:00 Test Item Value Reference Range Interpretation Comments Segs-Bands # (test code = Segs-Bands #) 6.1 1.5-8.1 [place] 287668-05-22 09:42:00 Test Item Value Reference Range Interpretation Comments Basophils # (test code 0.0 See_Comment [Aut omated message] The = Basophils #) system which generated this result tra nsmitted reference range : <=0.2. The reference r katie was not used to int erpret this result as normal/abnormal . [facility] HospitalOqhdzkpWRREBECLHP3789-29-44 09:42:00 Test Item Value Reference Range Interpretation Comments Eosinophils # (test code 0.0 See_Comment [A utomated message] The = Eosinophils #) system whic h generated this result tra nsmitted reference range : <=0.5. The reference r katie was not used to int erpret this result as normal/abnormal . [facility] HospitalVnqhreeVOYRGWZAAF0969-88-73 09:42:00 Test Item Value Reference Range Interpretation Comments Monocytes # (test code 0.5 See_Comment [Aut omated message] The = Monocytes #) system which generated this result tra nsmitted reference range : <=0.8. The reference r katie was not used to int erpret this result as normal/abnormal . [facility] HospitalGrsvjxxWELKGFOBOU6917-54-13 09:42:00 Test Item Value Reference Range Interpretation Comments Lymphocytes # (test code = Lymphocytes 0.9 1.0-5.5 #) [facility] HospitalLufvjtqUDNIXFEZGZ9823-50-80 09:42:00 Test Item Value Reference Range Interpretation Comments Eosinophils (test code = 0.6 See_Comment [A utomated message] The Eosinophils) system which ge nerated this result tra nsmitted reference range : <=4.0. The reference r katie was not used to int erpret this result as normal/abnormal . [facility] HospitalDuaaewlSSRJLVWJKX0320-66-27 09:42:00 Test Item Value Reference Range Interpretation Comments Monocytes (test code = Monocytes) 6.4 2.0-12.0 [facility] HospitalDkstiwsIDWSCHCXSY5389-98-58 09:42:00 Test Item Value Reference Range Interpretation Comments Segs (test code = Segs) 81.3 45.0-75.0 [facility]HjgzqtsIQFYSGSMMI3662-19-66 09:42:00 Test Item Value Reference Range Interpretation Comments Lymphocytes (test code = Lymphocytes) 11.6 20.0-40.0 [facility] HospitalHnoifvlJDVCFCYDUR2342-82-60 09:42:00 Test Item Value Reference Range Interpretation Comments Plt Morph (test code = Normal (11/15/17 4:42 Plt Morph) AM) [facility] HospitalJggyoniTINTSPWMMZ3070-70-39 09:42:00 Test Item Value Reference Range Interpretation Comments RBC Morph (test code = Normal (11/15/17 4:42 RBC Morph) AM) [facility] HospitalNedpjibNFTQWDWKCA3856-22-26 09:42:00 Test Item Value Reference Range Interpretation Comments Basophils (test code = 0.1 See_Comment [Aut omated message] The Basophils) system which ge nerated this result tra nsmitted reference range : <=1.0. The reference r katie was not used to int erpret this result as normal/abnormal . [facility] HospitalZhbwdxpBMNAMBYQVO3548-47-94 09:42:00 Test Item Value Reference Range Interpretation Comments WBC (test code = WBC) 7.5 3.7-10.4 [facility] HospitalCkwstbpCXJCPFCHXM5995-96-72 09:42:00 Test Item Value Reference Range Interpretation Comments RDW (test code = RDW) 13.1 11.5-14.5 [facility] HospitalTtlhfyiTQTDLNQUSX7745-78-27 09:42:00 Test Item Value Reference Range Interpretation Comments MCH (test code = MCH) 33.1 pg 27.0-31.0 [facility] HospitalOrfagfnBYEHSWICZI3903-01-66 09:42:00 Test Item Value Reference Range Interpretation Comments MCHC (test code = MCHC) 35.9 32.0-36.0 [place] [id number] 09:42:00 Test Item Value Reference Range Interpretation Comments MCV (test code = MCV) 92.4 80.0-98.0 [place] 287668-05-22 09:42:00 Test Item Value Reference Range Interpretation Comments Hct (test code = Hct) 16.7 36.0-48.0 [place] 287668-05-22 09:42:00 Test Item Value Reference Range Interpretation Comments RBC (test code = RBC) 1.81 4.20-5.40 [facility] HospitalDcevjjfQVTGQBJGNZ4736-53-72 09:42:00 Test Item Value Reference Range Interpretation Comments Platelet (test code = Platelet) 168 133-450 [facility] HospitalSjyylnrTFMHUNOJUL3411-84-55 09:42:00 Test Item Value Reference Range Interpretation Comments MPV (test code = MPV) 7.6 7.4-10.4 [facility]2018-05-22 07:50:00 Test Item Value Reference Range Interpretation Comments Phosphorus (test code = Phosphorus) 0.6 2.5-4.5 [facility]2018-05-22 07:50:00 Test Item Value Reference Range Interpretation Comments Magnesium Lvl (test code = Magnesium 2.8 1.8-2.4 Lvl) [facility]2018-05-22 07:50:00 Test Item Value Reference Range Interpretation Comments eGFR (test code = eGFR) 48 [facility]2018-05-22 07:50:00 Test Item Value Reference Range Interpretation Comments AGAP (test code = AGAP) 15.3 10.0-20.0 [facility]2018-05-22 07:50:00 Test Item Value Reference Range Interpretation Comments Calcium Lvl (test code = Calcium Lvl) 9.1 8.5-10.5 [facility]2018-05-22 07:50:00 Test Item Value Reference Range Interpretation Comments Creatinine Lvl (test code = Creatinine 1.20 0.50-1.40 Lvl) [facility]2018-05-22 07:50:00 Test Item Value Reference Range Interpretation Comments Sodium Lvl (test code = Sodium Lvl) 143 135-145 [facility]2018-05-22 07:50:00 Test Item Value Reference Range Interpretation Comments Chloride Lvl (test code = Chloride Lvl) 108 95-109 [facility] [id number] 07:50:00 Test Item Value Reference Range Interpretation Comments Potassium Lvl (test code = Potassium 3.3 3.5-5.1 Lvl) [facility]2018-05-22 07:50:00 Test Item Value Reference Range Interpretation Comments CO2 (test code = CO2) 23 24-32 [facility]2018-05-22 07:50:00 Test Item Value Reference Range Interpretation Comments BUN (test code = BUN) 18 7-22 [facility]2018-05-22 07:50:00 Test Item Value Reference Range Interpretation Comments Glucose Lvl (test code = Glucose Lvl) 114 70-99 [facility] HospitalJrehaaxFVRHLNUMHX6998-02-65 07:50:00 Test Item Value Reference Range Interpretation Comments Fibrinogen Lvl (test code = Fibrinogen 397 230-510 Lvl) [facility] HospitalVnlsjefQBAHSJNRHL9258-14-37 07:50:00 Test Item Value Reference Range Interpretation Comments PT (test code = PT) 15.7 s 12.0-14.7 [facility]ZnkipyuMHICXCSQTF5487-34-93 07:50:00 Test Item Value Reference Range Interpretation Comments INR (test code = INR) 1.24 1 0.85-1.17 [facility] HospitalThsagarOAGESPMKAQ0333-87-13 07:50:00 Test Item Value Reference Range Interpretation Comments PTT (test code = PTT) 30.3 s 22.9-35.8 [facility] [id number] 07:50:00 Test Item Value Reference Range Interpretation Comments Ca Norm WB (test code = Ca Norm WB) 1.22 1.05-1.25 [facility] [id number] 07:50:00 Test Item Value Reference Range Interpretation Comments Ca Ion WB (test code = Ca Ion WB) 1.13 1.05-1.25 [facility] KZQQIIYEG9756-02-03 07:50:00 Test Item Value Reference Range Interpretation Comments Hgb A1C (test code = Hgb A1C) <3.5 % [facility] [id number] 07:50:00 Test Item Value Reference Range Interpretation Comments Phosphorus (test code = Phosphorus) 0.6 2.5-4.5 [place] 848658-05-22 07:50:00 Test Item Value Reference Range Interpretation Comments Magnesium Lvl (test code = Magnesium 2.8 1.8-2.4 Lvl) [facility]2018-05-22 07:50:00 Test Item Value Reference Range Interpretation Comments eGFR (test code = eGFR) 48 [facility]2018-05-22 07:50:00 Test Item Value Reference Range Interpretation Comments AGAP (test code = AGAP) 15.3 10.0-20.0 [place] 848658-05-22 07:50:00 Test Item Value Reference Range Interpretation Comments Calcium Lvl (test code = Calcium Lvl) 9.1 8.5-10.5 [facility]2018-05-22 07:50:00 Test Item Value Reference Range Interpretation Comments Creatinine Lvl (test code = Creatinine 1.20 0.50-1.40 Lvl) [facility]2018-05-22 07:50:00 Test Item Value Reference Range Interpretation Comments Sodium Lvl (test code = Sodium Lvl) 143 135-145 [facility]2018-05-22 07:50:00 Test Item Value Reference Range Interpretation Comments Chloride Lvl (test code = Chloride Lvl) 108 95-109 [facility]2018-05-22 07:50:00 Test Item Value Reference Range Interpretation Comments Potassium Lvl (test code = Potassium 3.3 3.5-5.1 Lvl) [facility]2018-05-22 07:50:00 Test Item Value Reference Range Interpretation Comments CO2 (test code = CO2) 23 24-32 [place] 848658-05-22 07:50:00 Test Item Value Reference Range Interpretation Comments BUN (test code = BUN) 18 7-22 [facility]2018-05-22 07:50:00 Test Item Value Reference Range Interpretation Comments Glucose Lvl (test code = Glucose Lvl) 114 70-99 [facility] HospitalQltumodBDEGARWEWB5902-43-56 07:50:00 Test Item Value Reference Range Interpretation Comments Fibrinogen Lvl (test code = Fibrinogen 397 230-510 Lvl) [facility] HospitalGsiwiwaKXGRWBJDQG9646-16-98 07:50:00 Test Item Value Reference Range Interpretation Comments PT (test code = PT) 15.7 s 12.0-14.7 [facility] HospitalPkpunycMLQMSRZLYJ0650-28-07 07:50:00 Test Item Value Reference Range Interpretation Comments INR (test code = INR) 1.24 1 0.85-1.17 [facility] HospitalHysuediXNZWZOXJAP9566-74-53 07:50:00 Test Item Value Reference Range Interpretation Comments PTT (test code = PTT) 30.3 s 22.9-35.8 [facility] HospitalPARATHYROID [id number] 07:50:00 Test Item Value Reference Range Interpretation Comments Ca Norm WB (test code = Ca Norm WB) 1.22 1.05-1.25 [facility] [id number] 07:50:00 Test Item Value Reference Range Interpretation Comments Ca Ion WB (test code = Ca Ion WB) 1.13 1.05-1.25 [facility] [id number] 07:50:00 Test Item Value Reference Range Interpretation Comments Hgb A1C (test code = Hgb A1C) <3.5 % [facility]2018-05-22 07:50:00 Test Item Value Reference Range Interpretation Comments Phosphorus (test code = Phosphorus) 0.6 2.5-4.5 [facility]2018-05-22 07:50:00 Test Item Value Reference Range Interpretation Comments Magnesium Lvl (test code = Magnesium 2.8 1.8-2.4 Lvl) [facility]2018-05-22 07:50:00 Test Item Value Reference Range Interpretation Comments eGFR (test code = eGFR) 48 [facility] [id number] 07:50:00 Test Item Value Reference Range Interpretation Comments AGAP (test code = AGAP) 15.3 10.0-20.0 [facility]2018-05-22 07:50:00 Test Item Value Reference Range Interpretation Comments Calcium Lvl (test code = Calcium Lvl) 9.1 8.5-10.5 [facility]2018-05-22 07:50:00 Test Item Value Reference Range Interpretation Comments Creatinine Lvl (test code = Creatinine 1.20 0.50-1.40 Lvl) [facility] [id number] 07:50:00 Test Item Value Reference Range Interpretation Comments Sodium Lvl (test code = Sodium Lvl) 143 135-145 [facility]2018-05-22 07:50:00 Test Item Value Reference Range Interpretation Comments Chloride Lvl (test code = Chloride Lvl) 108 95-109 [facility]2018-05-22 07:50:00 Test Item Value Reference Range Interpretation Comments Potassium Lvl (test code = Potassium 3.3 3.5-5.1 Lvl) [facility]2018-05-22 07:50:00 Test Item Value Reference Range Interpretation Comments CO2 (test code = CO2) 23 24-32 [facility] [id number] 07:50:00 Test Item Value Reference Range Interpretation Comments BUN (test code = BUN) 18 7-22 [facility]2018-05-22 07:50:00 Test Item Value Reference Range Interpretation Comments Glucose Lvl (test code = Glucose Lvl) 114 70-99 [facility] HospitalUfjqpnxZWMOYZGBXH3803-92-72 07:50:00 Test Item Value Reference Range Interpretation Comments Fibrinogen Lvl (test code = Fibrinogen 397 230-510 Lvl) [facility] HospitalXfmajixYGRDJSNYYP0263-11-84 07:50:00 Test Item Value Reference Range Interpretation Comments PT (test code = PT) 15.7 s 12.0-14.7 [facility] HospitalDhdtpizWRGXWHXSGB3527-48-74 07:50:00 Test Item Value Reference Range Interpretation Comments INR (test code = INR) 1.24 1 0.85-1.17 [facility] HospitalZpyjxksIVCMZWXBYA6107-14-05 07:50:00 Test Item Value Reference Range Interpretation Comments PTT (test code = PTT) 30.3 s 22.9-35.8 [facility]PAR[facility] [id number] 07:50:00 Test Item Value Reference Range Interpretation Comments Ca Norm WB (test code = Ca Norm WB) 1.22 1.05-1.25 [facility] HospitalPARATHYROID [id number] 07:50:00 Test Item Value Reference Range Interpretation Comments Ca Ion WB (test code = Ca Ion WB) 1.13 1.05-1.25 [facility] [id number] 07:50:00 Test Item Value Reference Range Interpretation Comments Hgb A1C (test code = Hgb A1C) <3.5 % [facility] [id number] 07:50:00 Test Item Value Reference Range Interpretation Comments Phosphorus (test code = Phosphorus) 0.6 2.5-4.5 [facility]2018-05-22 07:50:00 Test Item Value Reference Range Interpretation Comments Magnesium Lvl (test code = Magnesium 2.8 1.8-2.4 Lvl) [facility]2018-05-22 07:50:00 Test Item Value Reference Range Interpretation Comments eGFR (test code = eGFR) 48 [facility]2018-05-22 07:50:00 Test Item Value Reference Range Interpretation Comments AGAP (test code = AGAP) 15.3 10.0-20.0 [facility]2018-05-22 07:50:00 Test Item Value Reference Range Interpretation Comments Calcium Lvl (test code = Calcium Lvl) 9.1 8.5-10.5 [facility]2018-05-22 07:50:00 Test Item Value Reference Range Interpretation Comments Creatinine Lvl (test code = Creatinine 1.20 0.50-1.40 Lvl) [facility]2018-05-22 07:50:00 Test Item Value Reference Range Interpretation Comments Sodium Lvl (test code = Sodium Lvl) 143 135-145 [facility]2018-05-22 07:50:00 Test Item Value Reference Range Interpretation Comments Chloride Lvl (test code = Chloride Lvl) 108 95-109 [facility]2018-05-22 07:50:00 Test Item Value Reference Range Interpretation Comments Potassium Lvl (test code = Potassium 3.3 3.5-5.1 Lvl) [facility]2018-05-22 07:50:00 Test Item Value Reference Range Interpretation Comments CO2 (test code = CO2) 23 24-32 [facility]2018-05-22 07:50:00 Test Item Value Reference Range Interpretation Comments BUN (test code = BUN) 18 7-22 [facility]2018-05-22 07:50:00 Test Item Value Reference Range Interpretation Comments Glucose Lvl (test code = Glucose Lvl) 114 70-99 [facility] HospitalNhtsmgcIYWSJZULMF3710-99-10 07:50:00 Test Item Value Reference Range Interpretation Comments Fibrinogen Lvl (test code = Fibrinogen 397 230-510 Lvl) [place] 287668-05-22 07:50:00 Test Item Value Reference Range Interpretation Comments PT (test code = PT) 15.7 s 12.0-14.7 [facility] HospitalVqeofafAQKVIYURYR8553-32-57 07:50:00 Test Item Value Reference Range Interpretation Comments INR (test code = INR) 1.24 1 0.85-1.17 [facility] HospitalCmqfgwbBEBZJWBYSE9428-64-77 07:50:00 Test Item Value Reference Range Interpretation Comments PTT (test code = PTT) 30.3 s 22.9-35.8 [facility]PAR[facility] [id number] 07:50:00 Test Item Value Reference Range Interpretation Comments Ca Norm WB (test code = Ca Norm WB) 1.22 1.05-1.25 [facility] [id number] 07:50:00 Test Item Value Reference Range Interpretation Comments Ca Ion WB (test code = Ca Ion WB) 1.13 1.05-1.25 [facility] [id number] 07:50:00 Test Item Value Reference Range Interpretation Comments Hgb A1C (test code = Hgb A1C) <3.5 % [facility] [id number] 07:50:00 Test Item Value Reference Range Interpretation Comments Phosphorus (test code = Phosphorus) 0.6 2.5-4.5 [facility] [id number] 07:50:00 Test Item Value Reference Range Interpretation Comments Magnesium Lvl (test code = Magnesium 2.8 1.8-2.4 Lvl) [facility]2018-05-22 07:50:00 Test Item Value Reference Range Interpretation Comments eGFR (test code = eGFR) 48 [facility] [id number] 07:50:00 Test Item Value Reference Range Interpretation Comments AGAP (test code = AGAP) 15.3 10.0-20.0 [facility] [id number] 07:50:00 Test Item Value Reference Range Interpretation Comments Calcium Lvl (test code = Calcium Lvl) 9.1 8.5-10.5 [facility] [id number] 07:50:00 Test Item Value Reference Range Interpretation Comments Creatinine Lvl (test code = Creatinine 1.20 0.50-1.40 Lvl) [facility] [id number] 07:50:00 Test Item Value Reference Range Interpretation Comments Sodium Lvl (test code = Sodium Lvl) 143 135-145 [facility]2018-05-22 07:50:00 Test Item Value Reference Range Interpretation Comments Chloride Lvl (test code = Chloride Lvl) 108 95-109 [facility]2018-05-22 07:50:00 Test Item Value Reference Range Interpretation Comments Potassium Lvl (test code = Potassium 3.3 3.5-5.1 Lvl) [facility]2018-05-22 07:50:00 Test Item Value Reference Range Interpretation Comments CO2 (test code = CO2) 23 24-32 [facility]2018-05-22 07:50:00 Test Item Value Reference Range Interpretation Comments BUN (test code = BUN) 18 - [facility]2018-05-22 07:50:00 Test Item Value Reference Range Interpretation Comments Glucose Lvl (test code = Glucose Lvl) 114 70-99 [facility] HospitalJjsarwyAQPDCGIQJK5230-75-70 07:50:00 Test Item Value Reference Range Interpretation Comments Fibrinogen Lvl (test code = Fibrinogen 397 230-510 Lvl) [facility] H[id number] 07:50:00 Test Item Value Reference Range Interpretation Comments PT (test code = PT) 15.7 s 12.0-14.7 [facility] HospitalHrkuhroWTZTPFMBNF4491-16-04 07:50:00 Test Item Value Reference Range Interpretation Comments INR (test code = INR) 1.24 1 0.85-1.17 [facility] HospitalKrnoefuEUAXFXTLHP0223-35-89 07:50:00 Test Item Value Reference Range Interpretation Comments PTT (test code = PTT) 30.3 s 22.9-35.8 [facility]ATH[facility] [id number] 07:50:00 Test Item Value Reference Range Interpretation Comments Ca Norm WB (test code = Ca Norm WB) 1.22 1.05-1.25 [facility] [id number] 07:50:00 Test Item Value Reference Range Interpretation Comments Ca Ion WB (test code = Ca Ion WB) 1.13 1.05-1.25 [facility] [id number] 07:50:00 Test Item Value Reference Range Interpretation Comments Hgb A1C (test code = Hgb A1C) <3.5 % [facility]2018-05-22 07:50:00 Test Item Value Reference Range Interpretation Comments Phosphorus (test code = Phosphorus) 0.6 2.5-4.5 [facility]2018-05-22 07:50:00 Test Item Value Reference Range Interpretation Comments Magnesium Lvl (test code = Magnesium 2.8 1.8-2.4 Lvl) [facility]2018-05-22 07:50:00 Test Item Value Reference Range Interpretation Comments eGFR (test code = eGFR) 48 [facility]2018-05-22 07:50:00 Test Item Value Reference Range Interpretation Comments AGAP (test code = AGAP) 15.3 10.0-20.0 [facility]2018-05-22 07:50:00 Test Item Value Reference Range Interpretation Comments Calcium Lvl (test code = Calcium Lvl) 9.1 8.5-10.5 [facility]2018-05-22 07:50:00 Test Item Value Reference Range Interpretation Comments Creatinine Lvl (test code = Creatinine 1.20 0.50-1.40 Lvl) [facility]2018-05-22 07:50:00 Test Item Value Reference Range Interpretation Comments Sodium Lvl (test code = Sodium Lvl) 143 135-145 [facility]2018-05-22 07:50:00 Test Item Value Reference Range Interpretation Comments Chloride Lvl (test code = Chloride Lvl) 108 95-109 [facility]2018-05-22 07:50:00 Test Item Value Reference Range Interpretation Comments Potassium Lvl (test code = Potassium 3.3 3.5-5.1 Lvl) [facility]2018-05-22 07:50:00 Test Item Value Reference Range Interpretation Comments CO2 (test code = CO2) 23 24-32 [facility]2018-05-22 07:50:00 Test Item Value Reference Range Interpretation Comments BUN (test code = BUN) 18 7-22 [facility]2018-05-22 07:50:00 Test Item Value Reference Range Interpretation Comments Glucose Lvl (test code = Glucose Lvl) 114 70-99 [facility] HospitalBnxgbjrXOTKFVZLFD8050-27-40 07:50:00 Test Item Value Reference Range Interpretation Comments Fibrinogen Lvl (test code = Fibrinogen 397 230-510 Lvl) [facility] H[id number] 07:50:00 Test Item Value Reference Range Interpretation Comments PT (test code = PT) 15.7 s 12.0-14.7 [facility] HospitalGuwhfdxZCPDLLNCIN2808-32-68 07:50:00 Test Item Value Reference Range Interpretation Comments INR (test code = INR) 1.24 1 0.85-1.17 [facility] HospitalSrbbdmmXAHYJOYTHV4687-95-96 07:50:00 Test Item Value Reference Range Interpretation Comments PTT (test code = PTT) 30.3 s 22.9-35.8 [facility] [id number] 07:50:00 Test Item Value Reference Range Interpretation Comments Ca Norm WB (test code = Ca Norm WB) 1.22 1.05-1.25 [facility] [id number] 07:50:00 Test Item Value Reference Range Interpretation Comments Ca Ion WB (test code = Ca Ion WB) 1.13 1.05-1.25 [facility] [id number] 07:50:00 Test Item Value Reference Range Interpretation Comments Hgb A1C (test code = Hgb A1C) <3.5 % [facility] [id number] 04:43:00 Test Item Value Reference Range Interpretation Comments Cryo product (test Product available code = Cryo product) 1(11/14/17 11:43 PM) [facility] [id number] 04:43:00 Test Item Value Reference Range Interpretation Comments Cryo product (test Product available code = Cryo product) 1(11/14/17 11:43 PM) [facility] [id number] 04:43:00 Test Item Value Reference Range Interpretation Comments Cryo product (test Product available code = Cryo product) 1(11/14/17 11:43 PM) [facility] [id number] 04:43:00 Test Item Value Reference Range Interpretation Comments Cryo product (test Product available code = Cryo product) 1(11/14/17 11:43 PM) [facility] [id number] 04:43:00 Test Item Value Reference Range Interpretation Comments Cryo product (test Product available code = Cryo product) 1(11/14/17 11:43 PM) [facility] [id number] 04:43:00 Test Item Value Reference Range Interpretation Comments Cryo product (test Product available code = Cryo product) 1(11/14/17 11:43 PM) [facility] [id number] 01:57:00 Test Item Value Reference Range Interpretation Comments FFP product (test code Product available = FFP product) 2(11/14/17 8:57 PM) [facility] [id number] 01:57:00 Test Item Value Reference Range Interpretation Comments FFP product (test code Product available = FFP product) 2(11/14/17 8:57 PM) [facility] [id number] 01:57:00 Test Item Value Reference Range Interpretation Comments FFP product (test code Product available = FFP product) 2(11/14/17 8:57 PM) [facility] [id number] 01:57:00 Test Item Value Reference Range Interpretation Comments FFP product (test code Product available = FFP product) 2(11/14/17 8:57 PM) [facility] [id number] 01:57:00 Test Item Value Reference Range Interpretation Comments FFP product (test code Product available = FFP product) 2(11/14/17 8:57 PM) [facility] [id number] 01:57:00 Test Item Value Reference Range Interpretation Comments FFP product (test code Product available = FFP product) 2(11/14/17 8:57 PM) [facility]2018-05-22 01:21:00 Test Item Value Reference Range Interpretation Comments Lactic Acid Lvl (test code = Lactic 1.8 0.5-2.2 Acid Lvl) [facility]AhdncrmFEDSLBGAYQ8653-57-36 01:21:00 Test Item Value Reference Range Interpretation Comments Fibrinogen Lvl (test code = Fibrinogen 136 230-510 Lvl) [facility]2018-05-22 01:21:00 Test Item Value Reference Range Interpretation Comments Lactic Acid Lvl (test code = Lactic 1.8 0.5-2.2 Acid Lvl) [facility] HospitalBjhkkkfWLOIXOKLOV9925-00-49 01:21:00 Test Item Value Reference Range Interpretation Comments Fibrinogen Lvl (test code = Fibrinogen 136 230-510 Lvl) [facility]2018-05-22 01:21:00 Test Item Value Reference Range Interpretation Comments Lactic Acid Lvl (test code = Lactic 1.8 0.5-2.2 Acid Lvl) [facility] HospitalOlkgjlvHNCMHTTROM6423-81-95 01:21:00 Test Item Value Reference Range Interpretation Comments Fibrinogen Lvl (test code = Fibrinogen 136 230-510 Lvl) [facility]2018-05-22 01:21:00 Test Item Value Reference Range Interpretation Comments Lactic Acid Lvl (test code = Lactic 1.8 0.5-2.2 Acid Lvl) [facility] HospitalUrrofcqVYZZTUEIZF4554-30-12 01:21:00 Test Item Value Reference Range Interpretation Comments Fibrinogen Lvl (test code = Fibrinogen 136 230-510 Lvl) [facility]2018-05-22 01:21:00 Test Item Value Reference Range Interpretation Comments Lactic Acid Lvl (test code = Lactic 1.8 0.5-2.2 Acid Lvl) [facility] HospitalXkokrvkTUMHIQIMGX7887-70-15 01:21:00 Test Item Value Reference Range Interpretation Comments Fibrinogen Lvl (test code = Fibrinogen 136 230-510 Lvl) [facility]2018-05-22 01:21:00 Test Item Value Reference Range Interpretation Comments Lactic Acid Lvl (test code = Lactic 1.8 0.5-2.2 Acid Lvl) [facility] HospitalBrgvxlvIYCABSNFAY7293-39-88 01:21:00 Test Item Value Reference Range Interpretation Comments Fibrinogen Lvl (test code = Fibrinogen 136 230-510 Lvl) [facility]2018-05-22 00:52:00 Test Item Value Reference Range Interpretation Comments Phosphorus (test code = Phosphorus) 3.4 2.5-4.5 [facility]2018-05-22 00:52:00 Test Item Value Reference Range Interpretation Comments Magnesium Lvl (test code = Magnesium 2.1 1.8-2.4 Lvl) [facility]2018-05-22 00:52:00 Test Item Value Reference Range Interpretation Comments Phosphorus (test code = Phosphorus) 3.4 2.5-4.5 [facility]2018-05-22 00:52:00 Test Item Value Reference Range Interpretation Comments Magnesium Lvl (test code = Magnesium 2.1 1.8-2.4 Lvl) [facility] [id number] 00:52:00 Test Item Value Reference Range Interpretation Comments Phosphorus (test code = Phosphorus) 3.4 2.5-4.5 [facility]2018-05-22 00:52:00 Test Item Value Reference Range Interpretation Comments Magnesium Lvl (test code = Magnesium 2.1 1.8-2.4 Lvl) [facility]2018-05-22 00:52:00 Test Item Value Reference Range Interpretation Comments Phosphorus (test code = Phosphorus) 3.4 2.5-4.5 [facility]2018-05-22 00:52:00 Test Item Value Reference Range Interpretation Comments Magnesium Lvl (test code = Magnesium 2.1 1.8-2.4 Lvl) [facility]2018-05-22 00:52:00 Test Item Value Reference Range Interpretation Comments Phosphorus (test code = Phosphorus) 3.4 2.5-4.5 [facility]2018-05-22 00:52:00 Test Item Value Reference Range Interpretation Comments Magnesium Lvl (test code = Magnesium 2.1 1.8-2.4 Lvl) [facility]2018-05-22 00:52:00 Test Item Value Reference Range Interpretation Comments Phosphorus (test code = Phosphorus) 3.4 2.5-4.5 [facility]2018-05-22 00:52:00 Test Item Value Reference Range Interpretation Comments Magnesium Lvl (test code = Magnesium 2.1 1.8-2.4 Lvl) [facility] [id number] 00:50:00 Test Item Value Reference Range Interpretation Comments MRSA by PCR (test Negative (11/14/17 7:50 code = MRSA by PCR) PM) [facility]2018-05-22 00:50:00 Test Item Value Reference Range Interpretation Comments eGFR (test code = eGFR) 78 [facility]2018-05-22 00:50:00 Test Item Value Reference Range Interpretation Comments Chloride Lvl (test code = Chloride Lvl) 109 95-109 [facility]2018-05-22 00:50:00 Test Item Value Reference Range Interpretation Comments Potassium Lvl (test code = Potassium 5.2 3.5-5.1 Lvl) [facility]2018-05-22 00:50:00 Test Item Value Reference Range Interpretation Comments CO2 (test code = CO2) 23 24-32 [facility]2018-05-22 00:50:00 Test Item Value Reference Range Interpretation Comments Calcium Lvl (test code = Calcium Lvl) 7.5 8.5-10.5 [facility]2018-05-22 00:50:00 Test Item Value Reference Range Interpretation Comments Glucose Lvl (test code = Glucose Lvl) 209 70-99 [facility]2018-05-22 00:50:00 Test Item Value Reference Range Interpretation Comments Sodium Lvl (test code = Sodium Lvl) 141 135-145 [facility]2018-05-22 00:50:00 Test Item Value Reference Range Interpretation Comments Creatinine Lvl (test code = Creatinine 0.80 0.50-1.40 Lvl) [facility]2018-05-22 00:50:00 Test Item Value Reference Range Interpretation Comments BUN (test code = BUN) 13 7-22 [facility]2018-05-22 00:50:00 Test Item Value Reference Range Interpretation Comments AGAP (test code = AGAP) 14.2 10.0-20.0 [facility] HospitalZorxjiqANBFRVYBGV5051-54-64 00:50:00 Test Item Value Reference Range Interpretation Comments INR (test code = INR) 1.54 1 0.85-1.17 [facility] HospitalUunjurdLABOHBLWPB1468-18-74 00:50:00 Test Item Value Reference Range Interpretation Comments PT (test code = PT) 18.6 s 12.0-14.7 [facility] HospitalFyfswbjQYMHGBEFWU9838-56-37 00:50:00 Test Item Value Reference Range Interpretation Comments PTT (test code = PTT) 34.6 s 22.9-35.8 [facility] HospitalIheetsoDATHDVDFIY6002-31-22 00:50:00 Test Item Value Reference Range Interpretation Comments Platelet (test code = Platelet) 267 133-450 [facility] HospitalPrtmeebSVYBPTQWRP2924-97-90 00:50:00 Test Item Value Reference Range Interpretation Comments RDW (test code = RDW) 13.0 11.5-14.5 [place] [id number] 00:50:00 Test Item Value Reference Range Interpretation Comments MPV (test code = MPV) 8.1 7.4-10.4 [facility] HospitalFkbcexzXWYZUADPNM4895-68-59 00:50:00 Test Item Value Reference Range Interpretation Comments RBC (test code = RBC) 3.56 4.20-5.40 [facility] HospitalKuezmofMUYIQNUZMV9582-79-32 00:50:00 Test Item Value Reference Range Interpretation Comments WBC (test code = WBC) 22.5 3.7-10.4 [facility] HospitalKxtjxpuRAEORHOMRM0222-05-91 00:50:00 Test Item Value Reference Range Interpretation Comments MCHC (test code = MCHC) 33.8 32.0-36.0 [facility] HospitalYjfullaLVIMXLAHTF3309-74-64 00:50:00 Test Item Value Reference Range Interpretation Comments MCV (test code = MCV) 94.4 80.0-98.0 [facility] HospitalKbcvfdxGZXUHERRIL5745-76-10 00:50:00 Test Item Value Reference Range Interpretation Comments MCH (test code = MCH) 32.0 pg 27.0-31.0 [facility] HospitalJegjhuxQMLKQRCHZQ1249-58-62 00:50:00 Test Item Value Reference Range Interpretation Comments Eosinophils (test code = 2.0 See_Comment [A utomated message] The Eosinophils) system which ge nerated this result tra nsmitted reference range : <=4.0. The reference r katie was not used to int erpret this result as normal/abnormal . [facility] HospitalGmweyyyYATXLGCEOM0900-23-07 00:50:00 Test Item Value Reference Range Interpretation Comments Plt Morph (test code = Normal (11/14/17 7:50 Plt Morph) PM) [facility] HospitalKnhggbcKHOYTRBZZO8336-53-10 00:50:00 Test Item Value Reference Range Interpretation Comments Atypical Lymphs (test code = Atypical 0.0 Lymphs) [facility] HospitalMzfxeolZVOBEJZIHE7654-80-59 00:50:00 Test Item Value Reference Range Interpretation Comments RBC Morph (test code = Normal (11/14/17 7:50 RBC Morph) PM) [facility] HospitalFhptoaiUPCBTSGWIC9672-45-43 00:50:00 Test Item Value Reference Range Interpretation Comments Lymphocytes # (test code = Lymphocytes 2.2 1.0-5.5 #) [facility] HospitalZxeahmmAHLTGFCRST7197-22-11 00:50:00 Test Item Value Reference Range Interpretation Comments Segs-Bands # (test code = Segs-Bands #) 19.1 1.5-8.1 [facility] HospitalFvyuecpESDQZJTIDQ9584-56-40 00:50:00 Test Item Value Reference Range Interpretation Comments Monocytes (test code = Monocytes) 3.0 2.0-12.0 [facility] HospitalRcwiiffGWVYRPIBZC3097-19-32 00:50:00 Test Item Value Reference Range Interpretation Comments Lymphocytes (test code = Lymphocytes) 10.0 20.0-40.0 [facility] HospitalTnlqlcnLXKBGPENJS5229-28-97 00:50:00 Test Item Value Reference Range Interpretation Comments Bands (test code = 12.0 See_Comment [Automat ed message] The Bands) system which ge nerated this result transmit matteo reference range : <=11.0. The reference r katie was not used to interpr et this result as miesha l/abnormal. [facility] HospitalUzxsasvFLRYNWSVNY7065-29-61 00:50:00 Test Item Value Reference Range Interpretation Comments Segs (test code = Segs) 73.0 45.0-75.0 [facility] HospitalGhzgorsUMFDCNFXWI3447-92-24 00:50:00 Test Item Value Reference Range Interpretation Comments Monocytes # (test code 0.7 See_Comment [Aut omated message] The = Monocytes #) system which generated this result tra nsmitted reference range : <=0.8. The reference r katie was not used to int erpret this result as normal/abnormal . [facility] HospitalATHYROID LMHSDTZ3439-94-95 00:50:00 Test Item Value Reference Range Interpretation Comments Ca Ion WB (test code = Ca Ion WB) 0.96 1.05-1.25 [facility] HospitalPARATHYROID IDASWSA4491-53-40 00:50:00 Test Item Value Reference Range Interpretation Comments Ca Norm WB (test code = Ca Norm WB) 0.97 1.05-1.25 [facility]BA[facility] - [id number] 00:50:00 Test Item Value Reference Range Interpretation Comments MRSA by PCR (test Negative (11/14/17 7:50 code = MRSA by PCR) PM) [facility] HospitalCHEM [id number] 00:50:00 Test Item Value Reference Range Interpretation Comments eGFR (test code = eGFR) 78 [facility]2018-05-22 00:50:00 Test Item Value Reference Range Interpretation Comments Chloride Lvl (test code = Chloride Lvl) 109 95-109 [facility]2018-05-22 00:50:00 Test Item Value Reference Range Interpretation Comments Potassium Lvl (test code = Potassium 5.2 3.5-5.1 Lvl) [facility]2018-05-22 00:50:00 Test Item Value Reference Range Interpretation Comments CO2 (test code = CO2) 23 24-32 [facility]2018-05-22 00:50:00 Test Item Value Reference Range Interpretation Comments Calcium Lvl (test code = Calcium Lvl) 7.5 8.5-10.5 [facility]2018-05-22 00:50:00 Test Item Value Reference Range Interpretation Comments Glucose Lvl (test code = Glucose Lvl) 209 70-99 [facility]2018-05-22 00:50:00 Test Item Value Reference Range Interpretation Comments Sodium Lvl (test code = Sodium Lvl) 141 135-145 [facility]2018-05-22 00:50:00 Test Item Value Reference Range Interpretation Comments Creatinine Lvl (test code = Creatinine 0.80 0.50-1.40 Lvl) [facility]2018-05-22 00:50:00 Test Item Value Reference Range Interpretation Comments BUN (test code = BUN) 13 7-22 [facility]2018-05-22 00:50:00 Test Item Value Reference Range Interpretation Comments AGAP (test code = AGAP) 14.2 10.0-20.0 [facility] HospitalIqueycnKTPKNOBNBW2085-28-63 00:50:00 Test Item Value Reference Range Interpretation Comments INR (test code = INR) 1.54 1 0.85-1.17 [place] [id number] 00:50:00 Test Item Value Reference Range Interpretation Comments PT (test code = PT) 18.6 s 12.0-14.7 [facility] HospitalVgeqyttDOEUXBAOBZ8906-67-96 00:50:00 Test Item Value Reference Range Interpretation Comments PTT (test code = PTT) 34.6 s 22.9-35.8 [place] 287668-05-22 00:50:00 Test Item Value Reference Range Interpretation Comments Platelet (test code = Platelet) 267 133450 [facility] HospitalXnmrxbuVIRTDCIEMW5397-66-64 00:50:00 Test Item Value Reference Range Interpretation Comments RDW (test code = RDW) 13.0 11.5-14.5 [facility] HospitalBqjndnrTMKIDQPFKF7146-54-50 00:50:00 Test Item Value Reference Range Interpretation Comments MPV (test code = MPV) 8.1 7.4-10.4 [facility] HospitalUppfihyCTBWVSAOPR9555-25-45 00:50:00 Test Item Value Reference Range Interpretation Comments RBC (test code = RBC) 3.56 4.20-5.40 [facility] HospitalQewkgotUJAYNMLWXJ1272-78-34 00:50:00 Test Item Value Reference Range Interpretation Comments WBC (test code = WBC) 22.5 3.7-10.4 [facility] HospitalUaiperfKLKXOGNBHW1718-53-05 00:50:00 Test Item Value Reference Range Interpretation Comments MCHC (test code = MCHC) 33.8 32.0-36.0 [facility] HospitalCdhgamnVCXJKYSWNE2299-72-42 00:50:00 Test Item Value Reference Range Interpretation Comments MCV (test code = MCV) 94.4 80.0-98.0 [facility] HospitalRrlgotbAUZJNFWNTW2666-45-66 00:50:00 Test Item Value Reference Range Interpretation Comments MCH (test code = MCH) 32.0 pg 27.0-31.0 [facility] HospitalVsczlzhRVLIYBCDNJ8791-93-18 00:50:00 Test Item Value Reference Range Interpretation Comments Eosinophils (test code = 2.0 See_Comment [A utomated message] The Eosinophils) system which ge nerated this result tra nsmitted reference range : <=4.0. The reference r katie was not used to int erpret this result as normal/abnormal . [facility] HospitalDvxmnfaSGIDBOJYUD9807-68-35 00:50:00 Test Item Value Reference Range Interpretation Comments Plt Morph (test code = Normal (11/14/17 7:50 Plt Morph) PM) [facility] HospitalSotvvqpOEYLLIGLMD5934-61-63 00:50:00 Test Item Value Reference Range Interpretation Comments Atypical Lymphs (test code = Atypical 0.0 Lymphs) [facility] HospitalOjeyqfvNCHOYWBDRU1543-79-41 00:50:00 Test Item Value Reference Range Interpretation Comments RBC Morph (test code = Normal (5/21/18 7:50 RBC Morph) PM) [facility] HospitalAlvfdfsCVQNUVZSET0722-86-54 00:50:00 Test Item Value Reference Range Interpretation Comments Lymphocytes # (test code = Lymphocytes 2.2 1.0-5.5 #) [facility] HospitalUtddfukWWTVTTATKW9918-30-96 00:50:00 Test Item Value Reference Range Interpretation Comments Segs-Bands # (test code = Segs-Bands #) 19.1 1.5-8.1 [facility] HospitalOesylijTMDZNILKWC3182-87-02 00:50:00 Test Item Value Reference Range Interpretation Comments Monocytes (test code = Monocytes) 3.0 2.0-12.0 [facility]WptfmkzKZDVADBWGS5047-21-42 00:50:00 Test Item Value Reference Range Interpretation Comments Lymphocytes (test code = Lymphocytes) 10.0 20.0-40.0 [facility] HospitalSsfnahsROLXLRFDWP8721-95-23 00:50:00 Test Item Value Reference Range Interpretation Comments Bands (test code = 12.0 See_Comment [Automat ed message] The Bands) system which ge nerated this result transmit matteo reference range : <=11.0. The reference r katie was not used to interpr et this result as miesha l/abnormal. [facility] HospitalIcueuokPBEDFZIUDI9867-69-72 00:50:00 Test Item Value Reference Range Interpretation Comments Segs (test code = Segs) 73.0 45.0-75.0 [facility] HospitalXzobmfzOIZTAPDSHR4921-30-70 00:50:00 Test Item Value Reference Range Interpretation Comments Monocytes # (test code 0.7 See_Comment [Aut omated message] The = Monocytes #) system which generated this result tra nsmitted reference range : <=0.8. The reference r katie was not used to int erpret this result as normal/abnormal . [facility] HospitalATHYROID MUVUNKW2565-99-00 00:50:00 Test Item Value Reference Range Interpretation Comments Ca Ion WB (test code = Ca Ion WB) 0.96 1.05-1.25 [facility] [id number] 00:50:00 Test Item Value Reference Range Interpretation Comments Ca Norm WB (test code = Ca Norm WB) 0.97 1.05-1.25 [facility]BA[facility] - [id number] 00:50:00 Test Item Value Reference Range Interpretation Comments MRSA by PCR (test Negative (11/14/17 7:50 code = MRSA by PCR) PM) [facility]2018-05-22 00:50:00 Test Item Value Reference Range Interpretation Comments eGFR (test code = eGFR) 78 [facility]2018-05-22 00:50:00 Test Item Value Reference Range Interpretation Comments Chloride Lvl (test code = Chloride Lvl) 109 95-109 [facility]2018-05-22 00:50:00 Test Item Value Reference Range Interpretation Comments Potassium Lvl (test code = Potassium 5.2 3.5-5.1 Lvl) [facility]2018-05-22 00:50:00 Test Item Value Reference Range Interpretation Comments CO2 (test code = CO2) 23 24-32 [facility]2018-05-22 00:50:00 Test Item Value Reference Range Interpretation Comments Calcium Lvl (test code = Calcium Lvl) 7.5 8.5-10.5 [facility]2018-05-22 00:50:00 Test Item Value Reference Range Interpretation Comments Glucose Lvl (test code = Glucose Lvl) 209 70-99 [facility]2018-05-22 00:50:00 Test Item Value Reference Range Interpretation Comments Sodium Lvl (test code = Sodium Lvl) 141 135-145 [facility]2018-05-22 00:50:00 Test Item Value Reference Range Interpretation Comments Creatinine Lvl (test code = Creatinine 0.80 0.50-1.40 Lvl) [facility]2018-05-22 00:50:00 Test Item Value Reference Range Interpretation Comments BUN (test code = BUN) 13 -22 [facility]2018-05-22 00:50:00 Test Item Value Reference Range Interpretation Comments AGAP (test code = AGAP) 14.2 10.0-20.0 [facility] HospitalSknmkkjOENWGMLHTR9020-17-27 00:50:00 Test Item Value Reference Range Interpretation Comments INR (test code = INR) 1.54 1 0.85-1.17 [facility] HospitalQnytrzxUKOAMICPGA8986-77-52 00:50:00 Test Item Value Reference Range Interpretation Comments PT (test code = PT) 18.6 s 12.0-14.7 [facility] HospitalFcrzyoxZRFYEAXZSX6792-03-38 00:50:00 Test Item Value Reference Range Interpretation Comments PTT (test code = PTT) 34.6 s 22.9-35.8 [facility] HospitalNtagnwqRSYHJEVDHF4697-65-77 00:50:00 Test Item Value Reference Range Interpretation Comments Platelet (test code = Platelet) 267 133-450 [facility] HospitalUqvwnotGBPDEMNRNC0084-73-21 00:50:00 Test Item Value Reference Range Interpretation Comments RDW (test code = RDW) 13.0 11.5-14.5 [facility] HospitalEdzavexOGQLNOBPXT4376-01-66 00:50:00 Test Item Value Reference Range Interpretation Comments MPV (test code = MPV) 8.1 7.4-10.4 [facility] HospitalGnjtoilGNUMQFUPIP9051-90-37 00:50:00 Test Item Value Reference Range Interpretation Comments RBC (test code = RBC) 3.56 4.20-5.40 [facility] HospitalNbcmpqcEUTGFZODQD8152-73-21 00:50:00 Test Item Value Reference Range Interpretation Comments WBC (test code = WBC) 22.5 3.7-10.4 [facility] HospitalAtgwewwJHUYHPRPAU9194-37-88 00:50:00 Test Item Value Reference Range Interpretation Comments MCHC (test code = MCHC) 33.8 32.0-36.0 [facility] HospitalAamntsjXIZAEYKHHH8118-42-64 00:50:00 Test Item Value Reference Range Interpretation Comments MCV (test code = MCV) 94.4 80.0-98.0 [facility] HospitalXqexwibWMQCWCHKYA5510-62-76 00:50:00 Test Item Value Reference Range Interpretation Comments MCH (test code = MCH) 32.0 pg 27.0-31.0 [facility] HospitalDdizjyzTWZRKSAULQ8181-96-75 00:50:00 Test Item Value Reference Range Interpretation Comments Eosinophils (test code = 2.0 See_Comment [A utomated message] The Eosinophils) system which ge nerated this result tra nsmitted reference range : <=4.0. The reference r katie was not used to int erpret this result as normal/abnormal . [facility] HospitalSpwwbswFGUMKUKCTJ6558-96-97 00:50:00 Test Item Value Reference Range Interpretation Comments Plt Morph (test code = Normal (11/14/17 7:50 Plt Morph) PM) [facility] HospitalDocwohkDPRKWEWIOP3498-25-72 00:50:00 Test Item Value Reference Range Interpretation Comments Atypical Lymphs (test code = Atypical 0.0 Lymphs) [facility] HospitalUwgxksuFUZHQWWMDK5233-41-65 00:50:00 Test Item Value Reference Range Interpretation Comments RBC Morph (test code = Normal (11/14/17 7:50 RBC Morph) PM) [facility] HospitalCcuciljFFESYNPRMZ6934-20-42 00:50:00 Test Item Value Reference Range Interpretation Comments Lymphocytes # (test code = Lymphocytes 2.2 1.0-5.5 #) [facility] HospitalTwhhjhuRLCTIQXVEH2055-26-89 00:50:00 Test Item Value Reference Range Interpretation Comments Segs-Bands # (test code = Segs-Bands #) 19.1 1.5-8.1 [place] [id number] 00:50:00 Test Item Value Reference Range Interpretation Comments Monocytes (test code = Monocytes) 3.0 2.0-12.0 [facility] HospitalLqvqqbsDURYSWEPRZ3442-85-03 00:50:00 Test Item Value Reference Range Interpretation Comments Lymphocytes (test code = Lymphocytes) 10.0 20.0-40.0 [facility] HospitalFmcvdhwZUNVNSPVJT4975-72-49 00:50:00 Test Item Value Reference Range Interpretation Comments Bands (test code = 12.0 See_Comment [Automat ed message] The Bands) system which ge nerated this result transmit matteo reference range : <=11.0. The reference r katie was not used to interpr et this result as miesha l/abnormal. [facility] [facility]ig[facility]ODWM0713-76-21 00:50:00 Test Item Value Reference Range Interpretation Comments Segs (test code = Segs) 73.0 45.0-75.0 [facility] HospitalJtjkpubXERGTRWSIZ1359-91-19 00:50:00 Test Item Value Reference Range Interpretation Comments Monocytes # (test code 0.7 See_Comment [Aut omated message] The = Monocytes #) system which generated this result tra nsmitted reference range : <=0.8. The reference r katie was not used to int erpret this result as normal/abnormal . [facility] [id number] 00:50:00 Test Item Value Reference Range Interpretation Comments Ca Ion WB (test code = Ca Ion WB) 0.96 1.05-1.25 [facility]2018-05-22 00:50:00 Test Item Value Reference Range Interpretation Comments Ca Norm WB (test code = Ca Norm WB) 0.97 1.05-1.25 [facility] - [id number] 00:50:00 Test Item Value Reference Range Interpretation Comments MRSA by PCR (test Negative (11/14/17 7:50 code = MRSA by PCR) PM) [facility]2018-05-22 00:50:00 Test Item Value Reference Range Interpretation Comments eGFR (test code = eGFR) 78 [facility]2018-05-22 00:50:00 Test Item Value Reference Range Interpretation Comments Chloride Lvl (test code = Chloride Lvl) 109 95-109 [facility]2018-05-22 00:50:00 Test Item Value Reference Range Interpretation Comments Potassium Lvl (test code = Potassium 5.2 3.5-5.1 Lvl) [facility]2018-05-22 00:50:00 Test Item Value Reference Range Interpretation Comments CO2 (test code = CO2) 23 24-32 [facility]2018-05-22 00:50:00 Test Item Value Reference Range Interpretation Comments Calcium Lvl (test code = Calcium Lvl) 7.5 8.5-10.5 [facility]2018-05-22 00:50:00 Test Item Value Reference Range Interpretation Comments Glucose Lvl (test code = Glucose Lvl) 209 70-99 [facility]2018-05-22 00:50:00 Test Item Value Reference Range Interpretation Comments Sodium Lvl (test code = Sodium Lvl) 141 135-145 [facility]2018-05-22 00:50:00 Test Item Value Reference Range Interpretation Comments Creatinine Lvl (test code = Creatinine 0.80 0.50-1.40 Lvl) [facility]2018-05-22 00:50:00 Test Item Value Reference Range Interpretation Comments BUN (test code = BUN) 13 7-22 [facility]2018-05-22 00:50:00 Test Item Value Reference Range Interpretation Comments AGAP (test code = AGAP) 14.2 10.0-20.0 [facility] HospitalKaiprrdSBTSEFQSQC8716-20-09 00:50:00 Test Item Value Reference Range Interpretation Comments INR (test code = INR) 1.54 1 0.85-1.17 [facility] HospitalKoryugwJJUTBXQRLI0026-65-79 00:50:00 Test Item Value Reference Range Interpretation Comments PT (test code = PT) 18.6 s 12.0-14.7 [facility] HospitalUkgonvbCOGTIHKLQS4361-52-49 00:50:00 Test Item Value Reference Range Interpretation Comments PTT (test code = PTT) 34.6 s 22.9-35.8 [facility] HospitalGzsbkzjMUKHBJSOFQ1600-86-78 00:50:00 Test Item Value Reference Range Interpretation Comments Platelet (test code = Platelet) 267 133-450 [facility] HospitalWewxtqvRLCMUGWJUP7108-32-90 00:50:00 Test Item Value Reference Range Interpretation Comments RDW (test code = RDW) 13.0 11.5-14.5 [facility] HospitalMspwpgeUZYVEIUSAR3103-43-13 00:50:00 Test Item Value Reference Range Interpretation Comments MPV (test code = MPV) 8.1 7.4-10.4 [facility] HospitalPjvbjqrYGCMBDDBQM3816-51-88 00:50:00 Test Item Value Reference Range Interpretation Comments RBC (test code = RBC) 3.56 4.20-5.40 [facility] HospitalYxqrceoUJCJEYMLPC8739-90-72 00:50:00 Test Item Value Reference Range Interpretation Comments WBC (test code = WBC) 22.5 3.7-10.4 [facility] HospitalYpoljahRLZHVQKMGY5604-73-43 00:50:00 Test Item Value Reference Range Interpretation Comments MCHC (test code = MCHC) 33.8 32.0-36.0 [facility] HospitalGylkjkyRQNLONPDCC5976-22-81 00:50:00 Test Item Value Reference Range Interpretation Comments MCV (test code = MCV) 94.4 80.0-98.0 [facility] HospitalOqrludrCJHTJDLVBX4055-31-12 00:50:00 Test Item Value Reference Range Interpretation Comments MCH (test code = MCH) 32.0 pg 27.0-31.0 [facility] HospitalKifdcurJWEOONXKXL6449-38-78 00:50:00 Test Item Value Reference Range Interpretation Comments Eosinophils (test code = 2.0 See_Comment [A utomated message] The Eosinophils) system which ge nerated this result tra nsmitted reference range : <=4.0. The reference r katie was not used to int erpret this result as normal/abnormal . [facility] HospitalMnjrcqxZWIZIPBELN1342-95-50 00:50:00 Test Item Value Reference Range Interpretation Comments Plt Morph (test code = Normal (11/14/17 7:50 Plt Morph) PM) [facility] HospitalNgggtbuKWYHJNRWII2774-28-21 00:50:00 Test Item Value Reference Range Interpretation Comments Atypical Lymphs (test code = Atypical 0.0 Lymphs) [facility] HospitalTpemofeQZKNVIYDZY5526-51-24 00:50:00 Test Item Value Reference Range Interpretation Comments RBC Morph (test code = Normal (11/14/17 7:50 RBC Morph) PM) [facility] HospitalEksdraqMQCTPYGDHG6798-54-46 00:50:00 Test Item Value Reference Range Interpretation Comments Lymphocytes # (test code = Lymphocytes 2.2 1.0-5.5 #) [facility] HospitalMrvnqifRMCSVBVELX5665-79-76 00:50:00 Test Item Value Reference Range Interpretation Comments Segs-Bands # (test code = Segs-Bands #) 19.1 1.5-8.1 [facility] HospitalXfmntmrLKQDVXLOSF2230-30-23 00:50:00 Test Item Value Reference Range Interpretation Comments Monocytes (test code = Monocytes) 3.0 2.0-12.0 [facility] HospitalDpwdwuxTUPPGHDYWN8487-89-32 00:50:00 Test Item Value Reference Range Interpretation Comments Lymphocytes (test code = Lymphocytes) 10.0 20.0-40.0 [facility] HospitalRvbzxfkHDVPQTXVLE3702-78-71 00:50:00 Test Item Value Reference Range Interpretation Comments Bands (test code = 12.0 See_Comment [Automat ed message] The Bands) system which ge nerated this result transmit matteo reference range : <=11.0. The reference r katie was not used to interpr et this result as miesha l/abnormal. [facility] HospitalDyklpmtOAWPZYEILH6898-05-73 00:50:00 Test Item Value Reference Range Interpretation Comments Segs (test code = Segs) 73.0 45.0-75.0 [facility] HospitalIgohoeeLQOESVIXVY6538-13-81 00:50:00 Test Item Value Reference Range Interpretation Comments Monocytes # (test code 0.7 See_Comment [Aut omated message] The = Monocytes #) system which generated this result tra nsmitted reference range : <=0.8. The reference r katie was not used to int erpret this result as normal/abnormal . [facility] HospitalPARATHYROID KXBZYQD8566-20-28 00:50:00 Test Item Value Reference Range Interpretation Comments Ca Ion WB (test code = Ca Ion WB) 0.96 1.05-1.25 [facility] HospitalPARATHYROID [id number] 00:50:00 Test Item Value Reference Range Interpretation Comments Ca Norm WB (test code = Ca Norm WB) 0.97 1.05-1.25 [facility]BACT[facility] - [id number] 00:50:00 Test Item Value Reference Range Interpretation Comments MRSA by PCR (test Negative (11/14/17 7:50 code = MRSA by PCR) PM) [facility] [id number] 00:50:00 Test Item Value Reference Range Interpretation Comments eGFR (test code = eGFR) 78 [facility]2018-05-22 00:50:00 Test Item Value Reference Range Interpretation Comments Chloride Lvl (test code = Chloride Lvl) 109 95-109 [facility]2018-05-22 00:50:00 Test Item Value Reference Range Interpretation Comments Potassium Lvl (test code = Potassium 5.2 3.5-5.1 Lvl) [facility]2018-05-22 00:50:00 Test Item Value Reference Range Interpretation Comments CO2 (test code = CO2) 23 24-32 [facility]2018-05-22 00:50:00 Test Item Value Reference Range Interpretation Comments Calcium Lvl (test code = Calcium Lvl) 7.5 8.5-10.5 [facility]2018-05-22 00:50:00 Test Item Value Reference Range Interpretation Comments Glucose Lvl (test code = Glucose Lvl) 209 70-99 [facility]2018-05-22 00:50:00 Test Item Value Reference Range Interpretation Comments Sodium Lvl (test code = Sodium Lvl) 141 135-145 [facility]2018-05-22 00:50:00 Test Item Value Reference Range Interpretation Comments Creatinine Lvl (test code = Creatinine 0.80 0.50-1.40 Lvl) [facility]2018-05-22 00:50:00 Test Item Value Reference Range Interpretation Comments BUN (test code = BUN) 13 7-22 [facility]2018-05-22 00:50:00 Test Item Value Reference Range Interpretation Comments AGAP (test code = AGAP) 14.2 10.0-20.0 [facility] HospitalNgdbsnzEYZKTZAMRC3259-76-67 00:50:00 Test Item Value Reference Range Interpretation Comments INR (test code = INR) 1.54 1 0.85-1.17 [facility] HospitalMhsdfzjGCBJRRSXCZ1099-37-96 00:50:00 Test Item Value Reference Range Interpretation Comments PT (test code = PT) 18.6 s 12.0-14.7 [facility] HospitalJsayxvuFWTBPOTJBP7921-96-38 00:50:00 Test Item Value Reference Range Interpretation Comments PTT (test code = PTT) 34.6 s 22.9-35.8 [facility] HospitalQaupzlnGDNRTHPSMB9910-82-93 00:50:00 Test Item Value Reference Range Interpretation Comments Platelet (test code = Platelet) 267 133-450 [facility] HospitalCasjhpjGAJFDRGQWA9446-31-57 00:50:00 Test Item Value Reference Range Interpretation Comments RDW (test code = RDW) 13.0 11.5-14.5 [facility] HospitalHirszvjJQBDSVHMHK3952-64-92 00:50:00 Test Item Value Reference Range Interpretation Comments MPV (test code = MPV) 8.1 7.4-10.4 [facility] HospitalVggqwcsEKTCYPOZXO4947-21-12 00:50:00 Test Item Value Reference Range Interpretation Comments RBC (test code = RBC) 3.56 4.20-5.40 [facility] HospitalVdcononYCOGJMAPDN9182-94-69 00:50:00 Test Item Value Reference Range Interpretation Comments WBC (test code = WBC) 22.5 3.7-10.4 [facility] HospitalHhrctifSAAUSMGPNY7587-94-49 00:50:00 Test Item Value Reference Range Interpretation Comments MCHC (test code = MCHC) 33.8 32.0-36.0 [facility] HospitalYjtyjgrSUOEIKKTII3386-52-90 00:50:00 Test Item Value Reference Range Interpretation Comments MCV (test code = MCV) 94.4 80.0-98.0 [facility] HospitalMprrdwdHTLVNKLQGR3229-08-59 00:50:00 Test Item Value Reference Range Interpretation Comments MCH (test code = MCH) 32.0 pg 27.0-31.0 [facility] HospitalGfupuxeHWJVRCAWXX8403-27-75 00:50:00 Test Item Value Reference Range Interpretation Comments Eosinophils (test code = 2.0 See_Comment [A utomated message] The Eosinophils) system which ge nerated this result tra nsmitted reference range : <=4.0. The reference r katie was not used to int erpret this result as normal/abnormal . [facility] HospitalUcstednWLJPKBPVTD6176-73-75 00:50:00 Test Item Value Reference Range Interpretation Comments Plt Morph (test code = Normal (11/14/17 7:50 Plt Morph) PM) [facility] HospitalNppywisALCIDKDJSG0637-50-98 00:50:00 Test Item Value Reference Range Interpretation Comments Atypical Lymphs (test code = Atypical 0.0 Lymphs) [facility] HospitalKbbreheIUKPDYIICI7842-08-09 00:50:00 Test Item Value Reference Range Interpretation Comments RBC Morph (test code = Normal (11/14/17 7:50 RBC Morph) PM) [facility] HospitalJfmczdaAKZLDFKRPL8387-14-90 00:50:00 Test Item Value Reference Range Interpretation Comments Lymphocytes # (test code = Lymphocytes 2.2 1.0-5.5 #) [facility] HospitalPwqdtwoRFMLOBMCLA7713-04-26 00:50:00 Test Item Value Reference Range Interpretation Comments Segs-Bands # (test code = Segs-Bands #) 19.1 1.5-8.1 [facility] HospitalVgpwixwARLITEZHCH1246-59-94 00:50:00 Test Item Value Reference Range Interpretation Comments Monocytes (test code = Monocytes) 3.0 2.0-12.0 [facility] HospitalLneszmoWOPWWRLOYM0547-19-11 00:50:00 Test Item Value Reference Range Interpretation Comments Lymphocytes (test code = Lymphocytes) 10.0 20.0-40.0 [facility] HospitalQykooimRSHSJRGUMY5926-08-11 00:50:00 Test Item Value Reference Range Interpretation Comments Bands (test code = 12.0 See_Comment [Automat ed message] The Bands) system which ge nerated this result transmit matteo reference range : <=11.0. The reference r katie was not used to interpr et this result as miesha l/abnormal. [facility] HospitalWdsmzjtHIODQPMGQF8387-07-11 00:50:00 Test Item Value Reference Range Interpretation Comments Segs (test code = Segs) 73.0 45.0-75.0 [facility] HospitalEinvcxoFTGQRCYLLP4155-25-84 00:50:00 Test Item Value Reference Range Interpretation Comments Monocytes # (test code 0.7 See_Comment [Aut omated message] The = Monocytes #) system which generated this result tra nsmitted reference range : <=0.8. The reference r katie was not used to int erpret this result as normal/abnormal . [facility] HospitalPARATHYROID XNFOIST4928-50-57 00:50:00 Test Item Value Reference Range Interpretation Comments Ca Ion WB (test code = Ca Ion WB) 0.96 1.05-1.25 [facility] [id number] 00:50:00 Test Item Value Reference Range Interpretation Comments Ca Norm WB (test code = Ca Norm WB) 0.97 1.05-1.25 [facility]BA[facility] - [id number] 00:50:00 Test Item Value Reference Range Interpretation Comments MRSA by PCR (test Negative (11/14/17 7:50 code = MRSA by PCR) PM) [facility] [id number] 00:50:00 Test Item Value Reference Range Interpretation Comments eGFR (test code = eGFR) 78 [facility] [id number] 00:50:00 Test Item Value Reference Range Interpretation Comments Chloride Lvl (test code = Chloride Lvl) 109 95-109 [facility] [id number] 00:50:00 Test Item Value Reference Range Interpretation Comments Potassium Lvl (test code = Potassium 5.2 3.5-5.1 Lvl) [facility] [id number] 00:50:00 Test Item Value Reference Range Interpretation Comments CO2 (test code = CO2) 23 24-32 [facility] DHCSK5536-06-62 00:50:00 Test Item Value Reference Range Interpretation Comments Calcium Lvl (test code = Calcium Lvl) 7.5 8.5-10.5 [facility] [id number] 00:50:00 Test Item Value Reference Range Interpretation Comments Glucose Lvl (test code = Glucose Lvl) 209 70-99 [facility] RCBVI2403-75-53 00:50:00 Test Item Value Reference Range Interpretation Comments Sodium Lvl (test code = Sodium Lvl) 141 135-145 [facility] [id number] 00:50:00 Test Item Value Reference Range Interpretation Comments Creatinine Lvl (test code = Creatinine 0.80 0.50-1.40 Lvl) [facility]2018-05-22 00:50:00 Test Item Value Reference Range Interpretation Comments BUN (test code = BUN) 13 7-22 [facility]2018-05-22 00:50:00 Test Item Value Reference Range Interpretation Comments AGAP (test code = AGAP) 14.2 10.0-20.0 [facility] HospitalSjatfufEGEBCGCJNJ0173-16-62 00:50:00 Test Item Value Reference Range Interpretation Comments INR (test code = INR) 1.54 1 0.85-1.17 [facility] HospitalOtvwkgvFWFYUWQYXZ9945-64-11 00:50:00 Test Item Value Reference Range Interpretation Comments PT (test code = PT) 18.6 s 12.0-14.7 [facility] HospitalNgrpqmkWNBENALNRJ6418-27-22 00:50:00 Test Item Value Reference Range Interpretation Comments PTT (test code = PTT) 34.6 s 22.9-35.8 [facility] HospitalDcgsmeaAMXFWMZPNB3669-29-95 00:50:00 Test Item Value Reference Range Interpretation Comments Platelet (test code = Platelet) 267 133-450 [facility] HospitalEnkexxdBJDGLPXVHX4110-01-03 00:50:00 Test Item Value Reference Range Interpretation Comments RDW (test code = RDW) 13.0 11.5-14.5 [facility] HospitalWxxytzgBIDKPXNIVC6720-27-71 00:50:00 Test Item Value Reference Range Interpretation Comments MPV (test code = MPV) 8.1 7.4-10.4 [facility] HospitalRyexhqaBTLPJLZTIJ9714-15-74 00:50:00 Test Item Value Reference Range Interpretation Comments RBC (test code = RBC) 3.56 4.20-5.40 [facility] HospitalEwqjjdlPAHGJWHENX9541-03-42 00:50:00 Test Item Value Reference Range Interpretation Comments WBC (test code = WBC) 22.5 3.7-10.4 [facility] HospitalKphmudiOFWIMXMGHC5382-76-62 00:50:00 Test Item Value Reference Range Interpretation Comments MCHC (test code = MCHC) 33.8 32.0-36.0 [facility] HospitalTchlvbjQYBUKRPOQM2665-55-95 00:50:00 Test Item Value Reference Range Interpretation Comments MCV (test code = MCV) 94.4 80.0-98.0 [facility] HospitalIhomaiqCQEJWGKWBG9348-51-90 00:50:00 Test Item Value Reference Range Interpretation Comments MCH (test code = MCH) 32.0 pg 27.0-31.0 [facility] HospitalKxhozufFTZUOMNWRM3756-51-01 00:50:00 Test Item Value Reference Range Interpretation Comments Eosinophils (test code = 2.0 See_Comment [A utomated message] The Eosinophils) system which ge nerated this result tra nsmitted reference range : <=4.0. The reference r katie was not used to int erpret this result as normal/abnormal . [facility] HospitalXofylggWSANHCUDLD2722-91-43 00:50:00 Test Item Value Reference Range Interpretation Comments Plt Morph (test code = Normal (11/14/17 7:50 Plt Morph) PM) [facility] HospitalWpaxvnqRGIWGFKIGA0596-04-03 00:50:00 Test Item Value Reference Range Interpretation Comments Atypical Lymphs (test code = Atypical 0.0 Lymphs) [facility] HospitalQxbfkfkOCDUDCSZBJ0436-55-53 00:50:00 Test Item Value Reference Range Interpretation Comments RBC Morph (test code = Normal (11/14/17 7:50 RBC Morph) PM) [facility] HospitalQjikpsrMQIAZIBYVH7628-47-05 00:50:00 Test Item Value Reference Range Interpretation Comments Lymphocytes # (test code = Lymphocytes 2.2 1.0-5.5 #) [facility] HospitalSgzilfkHEPMZGTCBE8309-37-72 00:50:00 Test Item Value Reference Range Interpretation Comments Segs-Bands # (test code = Segs-Bands #) 19.1 1.5-8.1 [facility] HospitalHxsewpkVMIHMAVLXY9817-48-55 00:50:00 Test Item Value Reference Range Interpretation Comments Monocytes (test code = Monocytes) 3.0 2.0-12.0 [facility] HospitalXzlatrzRHWTKWQEMZ2780-55-46 00:50:00 Test Item Value Reference Range Interpretation Comments Lymphocytes (test code = Lymphocytes) 10.0 20.0-40.0 [facility] HospitalRaiaxxaUOCSNWMMMT5167-28-78 00:50:00 Test Item Value Reference Range Interpretation Comments Bands (test code = 12.0 See_Comment [Automat ed message] The Bands) system which ge nerated this result transmit matteo reference range : <=11.0. The reference r katie was not used to interpr et this result as miesha l/abnormal. [facility] HospitalSufloihZTQTQDUDTS4301-86-67 00:50:00 Test Item Value Reference Range Interpretation Comments Segs (test code = Segs) 73.0 45.0-75.0 [facility] HospitalEallklpKUZWBEAKGL9626-88-67 00:50:00 Test Item Value Reference Range Interpretation Comments Monocytes # (test code 0.7 See_Comment [Aut omated message] The = Monocytes #) system which generated this result tra nsmitted reference range : <=0.8. The reference r katie was not used to int erpret this result as normal/abnormal . [facility] HospitalPARATHYROID [id number] 00:50:00 Test Item Value Reference Range Interpretation Comments Ca Ion WB (test code = Ca Ion WB) 0.96 1.05-1.25 [facility]PAR[facility]ERROID HLWYEIM2627-21-18 00:50:00 Test Item Value Reference Range Interpretation Comments Ca Norm WB (test code = Ca Norm WB) 0.97 1.05-1.25 [facility] [id number] 23:32:00 Test Item Value Reference Range Interpretation Comments RBC product (test code Product available = RBC product) (11/14/17 6:32 PM) [facility] BANK [id number] 23:32:00 Test Item Value Reference Range Interpretation Comments RBC product (test code Product available = RBC product) (11/14/17 6:32 PM) [facility] BANK [id number] 23:32:00 Test Item Value Reference Range Interpretation Comments RBC product (test code Product available = RBC product) (11/14/17 6:32 PM) [facility] BANK [id number] 23:32:00 Test Item Value Reference Range Interpretation Comments RBC product (test code Product available = RBC product) (11/14/17 6:32 [facility] [id number] 23:32:00 Test Item Value Reference Range Interpretation Comments RBC product (test code Product available = RBC product) (11/14/17 6:32 PM) [facility] BANK [id number] 23:32:00 Test Item Value Reference Range Interpretation Comments RBC product (test code Product available = RBC product) (11/14/17 6:32 PM) [facility] BANK [id number] 22:14:00 Test Item Value Reference Range Interpretation Comments Platelet product (test Product available code = Platelet (11/14/17 5:14 PM) product) [facility] [id number] 22:14:00 Test Item Value Reference Range Interpretation Comments Platelet product (test Product available code = Platelet (11/14/17 5:14 PM) product) [facility] [id number] 22:14:00 Test Item Value Reference Range Interpretation Comments Platelet product (test Product available code = Platelet (11/14/17 5:14 PM) product) [facility] [id number] 22:14:00 Test Item Value Reference Range Interpretation Comments Platelet product (test Product available code = Platelet (11/14/17 5:14 PM) product) [facility] [id number] 22:14:00 Test Item Value Reference Range Interpretation Comments Platelet product (test Product available code = Platelet (11/14/17 5:14 PM) product) [facility] [id number] 22:14:00 Test Item Value Reference Range Interpretation Comments Platelet product (test Product available code = Platelet (11/14/17 5:14 PM) product) [facility] [id number] 20:51:00 Test Item Value Reference Range Interpretation Comments RBC product (test code Product available = RBC product) 3(11/14/17 3:51 PM) [facility] [id number] 20:51:00 Test Item Value Reference Range Interpretation Comments RBC product (test code Product available = RBC product) 3(11/14/17 3:51 PM) [facility] [id number] 20:51:00 Test Item Value Reference Range Interpretation Comments RBC product (test code Product available = RBC product) 3(11/14/17 3:51 PM) [facility] [id number] 20:51:00 Test Item Value Reference Range Interpretation Comments RBC product (test code Product available = RBC product) 3(11/14/17 3:51 PM) [facility] [id number] 20:51:00 Test Item Value Reference Range Interpretation Comments RBC product (test code Product available = RBC product) 3(11/14/17 3:51 PM) [facility] [id number] 20:51:00 Test Item Value Reference Range Interpretation Comments RBC product (test code Product available = RBC product) 3(11/14/17 3:51 PM) [facility] [id number] 19:48:00 Test Item Value Reference Range Interpretation Comments Antibody Scrn (test Negative (11/14/17 2:48 code = Antibody Scrn) PM) [facility] [id number] 19:48:00 Test Item Value Reference Range Interpretation Comments ABO/Rh (test code = ABO/Rh) A POS [facility]UnevjblSZFRYUNUBK6740-85-55 19:48:00 Test Item Value Reference Range Interpretation Comments Lymphocytes # (test code = Lymphocytes 2.6 1.0-5.5 #) [facility] HospitalAgsryktXUOWCNEGNU4457-99-60 19:48:00 Test Item Value Reference Range Interpretation Comments Segs-Bands # (test code = Segs-Bands #) 3.5 1.5-8.1 [facility] HospitalXwzhxubWPJWLQBKCX4979-99-58 19:48:00 Test Item Value Reference Range Interpretation Comments Basophils (test code = 0.5 See_Comment [Aut omated message] The Basophils) system which ge nerated this result tra nsmitted reference range : <=1.0. The reference r katie was not used to int erpret this result as normal/abnormal . [facility] HospitalLimidwoPUEJFUMUJC9912-73-23 19:48:00 Test Item Value Reference Range Interpretation Comments Eosinophils (test code = 3.9 See_Comment [A utomated message] The Eosinophils) system which ge nerated this result tra nsmitted reference range : <=4.0. The reference r katie was not used to int erpret this result as normal/abnormal . [facility] HospitalKltcjjyVXLHTCSBGB6803-86-99 19:48:00 Test Item Value Reference Range Interpretation Comments Monocytes # (test code 0.3 See_Comment [Aut omated message] The = Monocytes #) system which generated this result tra nsmitted reference range : <=0.8. The reference r katie was not used to int erpret this result as normal/abnormal . [facility] HospitalOdzetosAMFJTBCCHW1136-41-93 19:48:00 Test Item Value Reference Range Interpretation Comments Basophils # (test code 0.0 See_Comment [Aut omated message] The = Basophils #) system which generated this result tra nsmitted reference range : <=0.2. The reference r katie was not used to int erpret this result as normal/abnormal . [facility] HospitalUacuwlxZBAIYWKICR5399-56-52 19:48:00 Test Item Value Reference Range Interpretation Comments Eosinophils # (test code 0.3 See_Comment [A utomated message] The = Eosinophils #) system whic h generated this result tra nsmitted reference range : <=0.5. The reference r katie was not used to int erpret this result as normal/abnormal . [facility]NbeabwwFKUTWMULGZ1506-76-71 19:48:00 Test Item Value Reference Range Interpretation Comments Plt Morph (test code = Normal (11/14/17 2:48 Plt Morph) PM) [facility] HospitalNjyurrwQGGAXMMFXQ0546-07-14 19:48:00 Test Item Value Reference Range Interpretation Comments RBC Morph (test code = Normal (11/14/17 2:48 RBC Morph) PM) [facility]WgkpxlmEAWWKPJEQI8129-67-54 19:48:00 Test Item Value Reference Range Interpretation Comments Monocytes (test code = Monocytes) 4.9 2.0-12.0 [facility] ArlingtonVpvuaxaXXJGPWOSQZ6519-62-73 19:48:00 Test Item Value Reference Range Interpretation Comments Lymphocytes (test code = Lymphocytes) 38.1 20.0-40.0 [facility] ArlingtonCngafgsSYJIRKCLKP4575-42-07 19:48:00 Test Item Value Reference Range Interpretation Comments Segs (test code = Segs) 52.6 45.0-75.[address] [facility] [employer] [id number] 19:48:00 Test Item Value Reference Range Interpretation Comments Antibody Scrn (test Negative (11/14/17 2:48 code = Antibody Scrn) PM) [facility] [employer] [id number] 19:48:00 Test Item Value Reference Range Interpretation Comments ABO/Rh (test code = ABO/Rh) A POS [facility] ArlingtonJnknfxbFVCRMEQBPH8991-16-73 19:48:00 Test Item Value Reference Range Interpretation Comments Lymphocytes # (test code = Lymphocytes 2.6 1.0-5.5 #) [facility] ArlingtonUswfudcQCJYFOAJRP9940-83-26 19:48:00 Test Item Value Reference Range Interpretation Comments Segs-Bands # (test code = Segs-Bands #) 3.5 1.5-8.1 [facility] HospitalLqczckzRYWXXPDUWM0588-69-16 19:48:00 Test Item Value Reference Range Interpretation Comments Basophils (test code = 0.5 See_Comment [Aut omated message] The Basophils) system which ge nerated this result tra nsmitted reference range : <=1.0. The reference r katie was not used to int erpret this result as normal/abnormal . [facility] HospitalOllzkavTMUCNYOZQR8973-79-13 19:48:00 Test Item Value Reference Range Interpretation Comments Eosinophils (test code = 3.9 See_Comment [A utomated message] The Eosinophils) system which ge nerated this result tra nsmitted reference range : <=4.0. The reference r katie was not used to int erpret this result as normal/abnormal . [facility] HospitalKbwqemyJIQXNNSNUH6427-63-52 19:48:00 Test Item Value Reference Range Interpretation Comments Monocytes # (test code 0.3 See_Comment [Aut omated message] The = Monocytes #) system which generated this result tra nsmitted reference range : <=0.8. The reference r katie was not used to int erpret this result as normal/abnormal . [facility] HospitalKtmtbseUHBMXLCOBX9693-65-35 19:48:00 Test Item Value Reference Range Interpretation Comments Basophils # (test code 0.0 See_Comment [Aut omated message] The = Basophils #) system which generated this result tra nsmitted reference range : <=0.2. The reference r katie was not used to int erpret this result as normal/abnormal . [facility] HospitalSsbzbzmDTMKUQXKRP1527-43-96 19:48:00 Test Item Value Reference Range Interpretation Comments Eosinophils # (test code 0.3 See_Comment [A utomated message] The = Eosinophils #) system whic h generated this result tra nsmitted reference range : <=0.5. The reference r katie was not used to int erpret this result as normal/abnormal . [facility] HospitalOdmtaikIVRGUPXJMA6093-89-61 19:48:00 Test Item Value Reference Range Interpretation Comments Plt Morph (test code = Normal (11/14/17 2:48 Plt Morph) PM) [facility] HospitalCybvrjwGBJZPXWSQN2231-68-61 19:48:00 Test Item Value Reference Range Interpretation Comments RBC Morph (test code = Normal (11/14/17 2:48 RBC Morph) PM) [facility] HospitalBrvijmmQZUKMFXLFX3904-05-24 19:48:00 Test Item Value Reference Range Interpretation Comments Monocytes (test code = Monocytes) 4.9 2.0-12.0 [facility] HospitalAcnwdeqUDHMTGWTUS0238-01-35 19:48:00 Test Item Value Reference Range Interpretation Comments Lymphocytes (test code = Lymphocytes) 38.1 20.0-40.0 [facility] HospitalUzbyibaRZHFCPLNWK4543-99-88 19:48:00 Test Item Value Reference Range Interpretation Comments Segs (test code = Segs) 52.6 45.0-75.0 [facility] VMMSFZZ8145-73-63 19:48:00 Test Item Value Reference Range Interpretation Comments Antibody Scrn (test Negative (11/14/17 2:48 code = Antibody Scrn) PM) [facility] TBQJTEP6963-97-28 19:48:00 Test Item Value Reference Range Interpretation Comments ABO/Rh (test code = ABO/Rh) A POS [facility] HospitalOayfjsbJUXWTXJRTC6457-08-87 19:48:00 Test Item Value Reference Range Interpretation Comments Lymphocytes # (test code = Lymphocytes 2.6 1.0-5.5 #) [facility] HospitalPqziccoQNKOPXARYP1519-02-67 19:48:00 Test Item Value Reference Range Interpretation Comments Segs-Bands # (test code = Segs-Bands #) 3.5 1.5-8.1 [facility] HospitalRmzhkobZBDAUQTRUO4048-06-52 19:48:00 Test Item Value Reference Range Interpretation Comments Basophils (test code = 0.5 See_Comment [Aut omated message] The Basophils) system which ge nerated this result tra nsmitted reference range : <=1.0. The reference r katie was not used to int erpret this result as normal/abnormal . [facility] HospitalJegardaQCIKQLICPL7317-44-53 19:48:00 Test Item Value Reference Range Interpretation Comments Eosinophils (test code = 3.9 See_Comment [A utomated message] The Eosinophils) system which ge nerated this result tra nsmitted reference range : <=4.0. The reference r katie was not used to int erpret this result as normal/abnormal . [facility] HospitalFxylrfoMMVJKOIHUB6035-37-19 19:48:00 Test Item Value Reference Range Interpretation Comments Monocytes # (test code 0.3 See_Comment [Aut omated message] The = Monocytes #) system which generated this result tra nsmitted reference range : <=0.8. The reference r katie was not used to int erpret this result as normal/abnormal . [facility] HospitalIuginlzZUNXRQIRIB5020-65-06 19:48:00 Test Item Value Reference Range Interpretation Comments Basophils # (test code 0.0 See_Comment [Aut omated message] The = Basophils #) system which generated this result tra nsmitted reference range : <=0.2. The reference r katie was not used to int erpret this result as normal/abnormal . [facility] HospitalXdphkiiDEFQSPEWXD0113-93-33 19:48:00 Test Item Value Reference Range Interpretation Comments Eosinophils # (test code 0.3 See_Comment [A utomated message] The = Eosinophils #) system whic h generated this result tra nsmitted reference range : <=0.5. The reference r katie was not used to int erpret this result as normal/abnormal . [facility] HospitalGkwkuxzUWLAAMYUYG8274-25-27 19:48:00 Test Item Value Reference Range Interpretation Comments Plt Morph (test code = Normal (11/14/17 2:48 Plt Morph) PM) [facility] HospitalOpyudhnBQAMHIUVKU0874-97-11 19:48:00 Test Item Value Reference Range Interpretation Comments RBC Morph (test code = Normal (11/14/17 2:48 RBC Morph) PM) [facility] HospitalKqxxjsxEQGQCCPSYB5089-87-49 19:48:00 Test Item Value Reference Range Interpretation Comments Monocytes (test code = Monocytes) 4.9 2.0-12.0 [facility] HospitalWynxznpSFLXKACYUQ9378-20-70 19:48:00 Test Item Value Reference Range Interpretation Comments Lymphocytes (test code = Lymphocytes) 38.1 20.0-40.0 [facility]JzcftvaRQABHJIQXI0870-82-15 19:48:00 Test Item Value Reference Range Interpretation Comments Segs (test code = Segs) 52.6 45.0-75.0 [facility] GEOONOI9043-03-19 19:48:00 Test Item Value Reference Range Interpretation Comments Antibody Scrn (test Negative (11/14/17 2:48 code = Antibody Scrn) PM) [facility] HVCSQXR8842-55-05 19:48:00 Test Item Value Reference Range Interpretation Comments ABO/Rh (test code = ABO/Rh) A POS [facility] HospitalPnlgqpvVAFRMIKEKZ2463-45-87 19:48:00 Test Item Value Reference Range Interpretation Comments Lymphocytes # (test code = Lymphocytes 2.6 1.0-5.5 #) [facility] HospitalPbvykvqJPGDGEBEBO1374-68-11 19:48:00 Test Item Value Reference Range Interpretation Comments Segs-Bands # (test code = Segs-Bands #) 3.5 1.5-8.1 [facility] HospitalTzrjbrhTTGDOGEHLD8395-26-04 19:48:00 Test Item Value Reference Range Interpretation Comments Basophils (test code = 0.5 See_Comment [Aut omated message] The Basophils) system which ge nerated this result tra nsmitted reference range : <=1.0. The reference r katie was not used to int erpret this result as normal/abnormal . [facility] HospitalCvxfpagIPAFVAZPPF8605-81-58 19:48:00 Test Item Value Reference Range Interpretation Comments Eosinophils (test code = 3.9 See_Comment [A utomated message] The Eosinophils) system which ge nerated this result tra nsmitted reference range : <=4.0. The reference r katie was not used to int erpret this result as normal/abnormal . [facility] HospitalVdtbkvxBXJNOQOKLJ0017-40-69 19:48:00 Test Item Value Reference Range Interpretation Comments Monocytes # (test code 0.3 See_Comment [Aut omated message] The = Monocytes #) system which generated this result tra nsmitted reference range : <=0.8. The reference r katie was not used to int erpret this result as normal/abnormal . [facility] HospitalQstdyuzHGYYLQIFLL3760-99-73 19:48:00 Test Item Value Reference Range Interpretation Comments Basophils # (test code 0.0 See_Comment [Aut omated message] The = Basophils #) system which generated this result tra nsmitted reference range : <=0.2. The reference r katie was not used to int erpret this result as normal/abnormal . [facility] HospitalZdentvqWHALJCKGCZ2890-13-51 19:48:00 Test Item Value Reference Range Interpretation Comments Eosinophils # (test code 0.3 See_Comment [A utomated message] The = Eosinophils #) system whic h generated this result tra nsmitted reference range : <=0.5. The reference r katie was not used to int erpret this result as normal/abnormal . [facility] HospitalXxdiqvkWNDLGXAURY1791-29-85 19:48:00 Test Item Value Reference Range Interpretation Comments Plt Morph (test code = Normal (11/14/17 2:48 Plt Morph) PM) [facility] HospitalSmjqrecGJSNPYLGML5364-54-78 19:48:00 Test Item Value Reference Range Interpretation Comments RBC Morph (test code = Normal (11/14/17 2:48 RBC Morph) PM) [facility] HospitalUuubnrlHVSOTSYJRG5068-86-96 19:48:00 Test Item Value Reference Range Interpretation Comments Monocytes (test code = Monocytes) 4.9 2.0-12.0 [facility] HospitalJobwrlfYWEXRDWRQU7422-25-01 19:48:00 Test Item Value Reference Range Interpretation Comments Lymphocytes (test code = Lymphocytes) 38.1 20.0-40.0 [facility] HospitalKrmqgtvUVAZRGNAET4294-08-66 19:48:00 Test Item Value Reference Range Interpretation Comments Segs (test code = Segs) 52.6 45.0-75.[address] [facility] [employer] [id number] 19:48:00 Test Item Value Reference Range Interpretation Comments Antibody Scrn (test Negative (11/14/17 2:48 code = Antibody Scrn) PM) [facility] YLXMKCO2188-90-06 19:48:00 Test Item Value Reference Range Interpretation Comments ABO/Rh (test code = ABO/Rh) A POS [facility] HospitalIkhtcffNRPXMXXRVP0911-91-07 19:48:00 Test Item Value Reference Range Interpretation Comments Lymphocytes # (test code = Lymphocytes 2.6 1.0-5.5 #) [facility] HospitalMhbgmelNIHXYSGVZF5799-30-58 19:48:00 Test Item Value Reference Range Interpretation Comments Segs-Bands # (test code = Segs-Bands #) 3.5 1.5-8.1 [facility] ArlingtonPfswcytJEOSLYTRWS8004-80-49 19:48:00 Test Item Value Reference Range Interpretation Comments Basophils (test code = 0.5 See_Comment [Aut omated message] The Basophils) system which ge nerated this result tra nsmitted reference range : <=1.0. The reference r katie was not used to int erpret this result as normal/abnormal . [facility] HospitalDpsutxaZEMSTIEZPT4920-45-33 19:48:00 Test Item Value Reference Range Interpretation Comments Eosinophils (test code = 3.9 See_Comment [A utomated message] The Eosinophils) system which ge nerated this result tra nsmitted reference range : <=4.0. The reference r katie was not used to int erpret this result as normal/abnormal . [facility] HospitalRcgbavtVOVENUHANJ0268-99-72 19:48:00 Test Item Value Reference Range Interpretation Comments Monocytes # (test code 0.3 See_Comment [Aut omated message] The = Monocytes #) system which generated this result tra nsmitted reference range : <=0.8. The reference r katie was not used to int erpret this result as normal/abnormal . [facility] HospitalXwwsetfESPGMHHSUL0036-10-59 19:48:00 Test Item Value Reference Range Interpretation Comments Basophils # (test code 0.0 See_Comment [Aut omated message] The = Basophils #) system which generated this result tra nsmitted reference range : <=0.2. The reference r katie was not used to int erpret this result as normal/abnormal . [facility] HospitalAtiiuzyXNUQTESUDB9165-25-98 19:48:00 Test Item Value Reference Range Interpretation Comments Eosinophils # (test code 0.3 See_Comment [A utomated message] The = Eosinophils #) system whic h generated this result tra nsmitted reference range : <=0.5. The reference r katie was not used to int erpret this result as normal/abnormal . [facility] HospitalGuihyoaPNVXJVLRNC0840-50-96 19:48:00 Test Item Value Reference Range Interpretation Comments Plt Morph (test code = Normal (11/14/17 2:48 Plt Morph) PM) [facility] HospitalVkiudxlJJYHBMXLNV0514-33-95 19:48:00 Test Item Value Reference Range Interpretation Comments RBC Morph (test code = Normal (11/14/17 2:48 RBC Morph) PM) [facility] HospitalBmuklwgYNXZYYQMIH3989-22-95 19:48:00 Test Item Value Reference Range Interpretation Comments Monocytes (test code = Monocytes) 4.9 2.0-12.0 [facility] HospitalCjuvptdUZCYIFCGLB5066-66-06 19:48:00 Test Item Value Reference Range Interpretation Comments Lymphocytes (test code = Lymphocytes) 38.1 20.0-40.0 [facility] HospitalGfrgzxsDLBVOJIWAL3694-77-61 19:48:00 Test Item Value Reference Range Interpretation Comments Segs (test code = Segs) 52.6 45.0-75.0 [facility] KRJCUZB3088-39-93 19:48:00 Test Item Value Reference Range Interpretation Comments Antibody Scrn (test Negative (11/14/17 2:48 code = Antibody Scrn) PM) [facility] PQEMWGZ5782-23-55 19:48:00 Test Item Value Reference Range Interpretation Comments ABO/Rh (test code = ABO/Rh) A POS [facility] HospitalPuyljpkXHYGRFBGTR1651-32-93 19:48:00 Test Item Value Reference Range Interpretation Comments Lymphocytes # (test code = Lymphocytes 2.6 1.0-5.5 #) [facility] HospitalXpgtdciZHHOSLKVNM2499-23-01 19:48:00 Test Item Value Reference Range Interpretation Comments Segs-Bands # (test code = Segs-Bands #) 3.5 1.5-8.1 [facility] HospitalOnupxdcTCUVANBYDN0003-42-95 19:48:00 Test Item Value Reference Range Interpretation Comments Basophils (test code = 0.5 See_Comment [Aut omated message] The Basophils) system which ge nerated this result tra nsmitted reference range : <=1.0. The reference r katie was not used to int erpret this result as normal/abnormal . [facility] HospitalDoeemevQIAMKVSULJ3762-31-74 19:48:00 Test Item Value Reference Range Interpretation Comments Eosinophils (test code = 3.9 See_Comment [A utomated message] The Eosinophils) system which ge nerated this result tra nsmitted reference range : <=4.0. The reference r katie was not used to int erpret this result as normal/abnormal . [facility] HospitalDqwarpyTPUNPFBSCX0778-00-68 19:48:00 Test Item Value Reference Range Interpretation Comments Monocytes # (test code 0.3 See_Comment [Aut omated message] The = Monocytes #) system which generated this result tra nsmitted reference range : <=0.8. The reference r katie was not used to int erpret this result as normal/abnormal . [facility] HospitalKrxbtlwOIIMJWMRYM2135-10-00 19:48:00 Test Item Value Reference Range Interpretation Comments Basophils # (test code 0.0 See_Comment [Aut omated message] The = Basophils #) system which generated this result tra nsmitted reference range : <=0.2. The reference r katie was not used to int erpret this result as normal/abnormal . [facility] HospitalJjlurffQXRWUFDBKA8277-83-48 19:48:00 Test Item Value Reference Range Interpretation Comments Eosinophils # (test code 0.3 See_Comment [A utomated message] The = Eosinophils #) system [employer] generated this result tra nsmitted reference range : <=0.5. The reference r katie was not used to int erpret this result as normal/abnormal . [facility] HospitalNdhjiaoMCFPUYEKOU6097-05-58 19:48:00 Test Item Value Reference Range Interpretation Comments Plt Morph (test code = Normal (11/14/17 2:48 Plt Morph) PM) [facility] HospitalWqpvepxNYWCDQVPUH1699-37-13 19:48:00 Test Item Value Reference Range Interpretation Comments RBC Morph (test code = Normal (11/14/17 2:48 RBC Morph) PM) [facility] HospitalFjosfpjPQOUTUUYYO0391-75-80 19:48:00 Test Item Value Reference Range Interpretation Comments Monocytes (test code = Monocytes) 4.9 2.0-12.0 [facility] HospitalWxttclzUXWSTAPRVB0970-44-17 19:48:00 Test Item Value Reference Range Interpretation Comments Lymphocytes (test code = Lymphocytes) 38.1 20.0-40.0 [facility] HospitalLfiwmjoJDFOPBAMFQ6449-11-79 19:48:00 Test Item Value Reference Range Interpretation Comments Segs (test code = Segs) 52.6 45.0-75.0 [facility] HospitalUmzkunfQXWSHINNXD0056-40-68 18:39:00 Test Item Value Reference Range Interpretation Comments INR (test code = INR) 1.07 1 0.85-1.17 [facility] HospitalMnzqvpuMRIAWMSQPM2345-51-83 18:39:00 Test Item Value Reference Range Interpretation Comments PT (test code = PT) 13.9 s 12.0-14.7 [facility] HospitalLakmkrxXZRANL5710-38-14 18:39:00 Test Item Value Reference Range Interpretation Comments CHD Risk (test code = CHD Risk) 3.19 1 3.90-5.80 [facility] HospitalXvmvetsCBDSJA9891-85-44 18:39:00 Test Item Value Reference Range Interpretation Comments VLDL (test code = VLDL) [address] [facility] HospitalZnxivzdHAUIAU9573-64-18 18:39:00 Test Item Value Reference Range Interpretation Comments LDL (Calculated) (test code = LDL 68 (Calculated)) [facility]VqqledoLXNWGU0710-58-50 18:39:00 Test Item Value Reference Range Interpretation Comments Trig (test code = Trig) 119 [facility] SystemAsdxdxoPCETKX6726-01-07 18:39:00 Test Item Value Reference Range Interpretation Comments HDL (test code = HDL) 42 [facility] SystemPjzgizyULJMOS5184-01-93 18:39:00 Test Item Value Reference Range Interpretation Comments Chol (test code = Chol) 134 [facility] HospitalDbvtvzrIVVLXNRRGH3609-78-56 18:39:00 Test Item Value Reference Range Interpretation Comments INR (test code = INR) 1.07 1 0.85-1.17 [facility] HospitalLlnevlzNTIVTDQUIG8909-25-39 18:39:00 Test Item Value Reference Range Interpretation Comments PT (test code = PT) 13.9 s 12.0-14.7 [facility] SystemBgooqytEKKYKG7617-18-26 18:39:00 Test Item Value Reference Range Interpretation Comments CHD Risk (test code = CHD Risk) 3.19 1 3.90-5.80 [facility] SystemBtialjfJSTLLF3101-90-61 18:39:00 Test Item Value Reference Range Interpretation Comments VLDL (test code = VLDL) 24 1 [facility] SystemGphfhbmKXROTI2169-72-72 18:39:00 Test Item Value Reference Range Interpretation Comments LDL (Calculated) (test code = LDL 68 (Calculated)) [facility] SystemXonqxwoAGMSQL4856-12-79 18:39:00 Test Item Value Reference Range Interpretation Comments Trig (test code = Trig) 119 [facility] SystemDwyrjxmLIFFBW1413-87-54 18:39:00 Test Item Value Reference Range Interpretation Comments HDL (test code = HDL) 42 [facility] SystemFvtmmjhYRIEJV2160-59-68 18:39:00 Test Item Value Reference Range Interpretation Comments Chol (test code = Chol) 134 [facility] HospitalFnkexbyREKWEVXLUV6645-73-72 18:39:00 Test Item Value Reference Range Interpretation Comments INR (test code = INR) 1.07 1 0.85-1.17 [facility] HospitalIbllehbZIURCAFTVB6643-83-62 18:39:00 Test Item Value Reference Range Interpretation Comments PT (test code = PT) 13.9 s 12.0-14.7 [facility] SystemQmrcjzcXBMDPW1835-98-66 18:39:00 Test Item Value Reference Range Interpretation Comments CHD Risk (test code = CHD Risk) 3.19 1 3.90-5.80 [facility] SystemQwvushcKNWLPR9931-05-05 18:39:00 Test Item Value Reference Range Interpretation Comments VLDL (test code = VLDL) 24 1 [facility] SystemTquxisbONUPOC8585-39-74 18:39:00 Test Item Value Reference Range Interpretation Comments LDL (Calculated) (test code = LDL 68 (Calculated)) [facility]UwawsmdXYHUPT8236-45-07 18:39:00 Test Item Value Reference Range Interpretation Comments Trig (test code = Trig) 119 [facility] SystemClscbqgEWHMLT0523-48-84 18:39:00 Test Item Value Reference Range Interpretation Comments HDL (test code = HDL) 42 [facility] SystemMvfqbpoZZTVSG1970-96-32 18:39:00 Test Item Value Reference Range Interpretation Comments Chol (test code = Chol) 134 [facility] HospitalUfaghlrXESMABVMMI5099-06-97 18:39:00 Test Item Value Reference Range Interpretation Comments INR (test code = INR) 1.07 1 0.85-1.17 [facility] HospitalAqviffhQLUDVVFLCE6645-99-22 18:39:00 Test Item Value Reference Range Interpretation Comments PT (test code = PT) 13.9 s 12.0-14.7 [facility] SystemIsjlcudZJGUTU1575-40-45 18:39:00 Test Item Value Reference Range Interpretation Comments CHD Risk (test code = CHD Risk) 3.19 1 3.90-5.80 [facility] SystemJxwvforLLSSOG4409-40-93 18:39:00 Test Item Value Reference Range Interpretation Comments VLDL (test code = VLDL) 24 1 [facility] SystemVlkruuaPFONQW0834-31-08 18:39:00 Test Item Value Reference Range Interpretation Comments LDL (Calculated) (test code = LDL 68 (Calculated)) [place] [address]-05-21 18:39:00 Test Item Value Reference Range Interpretation Comments Trig (test code = Trig) 119 [facility] SystemYfbafrnLMQPJA6601-32-33 18:39:00 Test Item Value Reference Range Interpretation Comments HDL (test code = HDL) 42 [facility] SystemOvsabmuTPVUHC0249-35-89 18:39:00 Test Item Value Reference Range Interpretation Comments Chol (test code = Chol) 134 [facility] HospitalXujzoxcQEGQLJJDGE7233-76-52 18:39:00 Test Item Value Reference Range Interpretation Comments INR (test code = INR) 1.07 1 0.85-1.17 [facility] HospitalKusqccbVGTUNGYEOU1586-35-71 18:39:00 Test Item Value Reference Range Interpretation Comments PT (test code = PT) 13.9 s 12.0-14.7 [facility] SystemWlrzbmeMLBCMB6793-60-82 18:39:00 Test Item Value Reference Range Interpretation Comments CHD Risk (test code = CHD Risk) 3.19 1 3.90-5.80 [facility] SystemCgtmiuxCLKEYX9851-54-56 18:39:00 Test Item Value Reference Range Interpretation Comments VLDL (test code = VLDL) 24 1 [facility] SystemUssyqqaOMBQPI9495-34-37 18:39:00 Test Item Value Reference Range Interpretation Comments LDL (Calculated) (test code = LDL 68 (Calculated)) [facility] SystemHtogbzpKNYGAR7500-56-64 18:39:00 Test Item Value Reference Range Interpretation Comments Trig (test code = Trig) 119 [place] [address]-05-21 18:39:00 Test Item Value Reference Range Interpretation Comments HDL (test code = HDL) 42 [facility] SystemAzukizwTIWIHJ3736-28-44 18:39:00 Test Item Value Reference Range Interpretation Comments Chol (test code = Chol) 134 [facility] HospitalDhhxthgHRJCBRFUZQ0920-71-57 18:39:00 Test Item Value Reference Range Interpretation Comments INR (test code = INR) 1.07 1 0.85-1.17 [facility] HospitalQxjtfgwUFFRWMSCBQ4712-98-34 18:39:00 Test Item Value Reference Range Interpretation Comments PT (test code = PT) 13.9 s 12.0-14.7 [facility] SystemPolptekWOTUXM7221-53-24 18:39:00 Test Item Value Reference Range Interpretation Comments CHD Risk (test code = CHD Risk) 3.19 1 3.90-5.80 [facility] SystemTjifppbPCPXQF1195-03-66 18:39:00 Test Item Value Reference Range Interpretation Comments VLDL (test code = VLDL) 24 1 [facility] SystemXynihunCFLVGU9397-34-80 18:39:00 Test Item Value Reference Range Interpretation Comments LDL (Calculated) (test code = LDL 68 (Calculated)) [facility] SystemHyeqfucBPIRPC8215-39-86 18:39:00 Test Item Value Reference Range Interpretation Comments Trig (test code = Trig) 119 [facility] SystemQeztoquKDNEBT1197-40-80 18:39:00 Test Item Value Reference Range Interpretation Comments HDL (test code = HDL) 42 [facility] SystemDqnsksgSOVAVQ5808-76-15 18:39:00 Test Item Value Reference Range Interpretation Comments Chol (test code = Chol) 134 [facility] HospitalZlcezkuBXBJTLYNNR4759-75-65 14:20:00 Test Item Value Reference Range Interpretation Comments Basophils # (test code 0.1 See_Comment [Aut omated message] The = Basophils #) system which generated this result tra nsmitted reference range : <=0.2. The reference r katie was not used to int erpret this result as normal/abnormal . [facility] HospitalZtkmlngNUKATKRQZZ0126-90-02 14:20:00 Test Item Value Reference Range Interpretation Comments Eosinophils # (test code 0.3 See_Comment [A utomated message] The = Eosinophils #) system ic [employer] generated this result tra nsmitted reference range : <=0.5. The reference r katie was not used to int erpret this result as normal/abnormal . [facility] HospitalKftillaTWDVZMDKWO9124-91-08 14:20:00 Test Item Value Reference Range Interpretation Comments Basophils (test code = 1.0 See_Comment [Aut omated message] The Basophils) system which ge nerated this result tra nsmitted reference range : <=1.0. The reference r katie was not used to int erpret this result as normal/abnormal . [facility] HospitalXjqqeckHIWSVGSMWF9109-59-00 14:20:00 Test Item Value Reference Range Interpretation Comments Basophils # (test code 0.1 See_Comment [Aut omated message] The = Basophils #) system which generated this result tra nsmitted reference range : <=0.2. The reference r katie was not used to int erpret this result as normal/abnormal . [facility] HospitalPhqkavzEEPIDZKZVN5438-41-59 14:20:00 Test Item Value Reference Range Interpretation Comments Eosinophils # (test code 0.3 See_Comment [A utomated message] The = Eosinophils #) system ic [employer] generated this result tra nsmitted reference range : <=0.5. The reference r katie was not used to int erpret this result as normal/abnormal . [facility] HospitalUlyluxvSWNSOTJMLR7822-35-50 14:20:00 Test Item Value Reference Range Interpretation Comments Basophils (test code = 1.0 See_Comment [Aut omated message] The Basophils) system which ge nerated this result tra nsmitted reference range : <=1.0. The reference r katie was not used to int erpret this result as normal/abnormal . [facility] HospitalHskybtsDFLRMHYIHY0495-39-23 14:20:00 Test Item Value Reference Range Interpretation Comments Basophils # (test code 0.1 See_Comment [Aut omated message] The = Basophils #) system which generated this result tra nsmitted reference range : <=0.2. The reference r katie was not used to int erpret this result as normal/abnormal . [facility] HospitalDhsrcvhZXBWQZSYEV9391-62-41 14:20:00 Test Item Value Reference Range Interpretation Comments Eosinophils # (test code 0.3 See_Comment [A utomated message] The = Eosinophils #) system [employer] generated this result tra nsmitted reference range : <=0.5. The reference r katie was not used to int erpret this result as normal/abnormal . [facility] HospitalHannxizBARDSDXRSF5022-76-86 14:20:00 Test Item Value Reference Range Interpretation Comments Basophils (test code = 1.0 See_Comment [Aut omated message] The Basophils) system which ge nerated this result tra nsmitted reference range : <=1.0. The reference r katie was not used to int erpret this result as normal/abnormal . [facility] HospitalAgkedjvDKKROLVRGU7605-08-97 14:20:00 Test Item Value Reference Range Interpretation Comments Basophils # (test code 0.1 See_Comment [Aut omated message] The = Basophils #) system which generated this result tra nsmitted reference range : <=0.2. The reference r katie was not used to int erpret this result as normal/abnormal . [facility] HospitalEuhmzhpIQKDGJPXJH6910-69-94 14:20:00 Test Item Value Reference Range Interpretation Comments Eosinophils # (test code 0.3 See_Comment [A utomated message] The = Eosinophils #) system [employer] generated this result tra nsmitted reference range : <=0.5. The reference r katie was not used to int erpret this result as normal/abnormal . [facility] HospitalJazvymcLWJDILTWZS7481-46-40 14:20:00 Test Item Value Reference Range Interpretation Comments Basophils (test code = 1.0 See_Comment [Aut omated message] The Basophils) system which ge nerated this result tra nsmitted reference range : <=1.0. The reference r katie was not used to int erpret this result as normal/abnormal . [facility] HospitalWevhparEBKVCTWPYS7321-29-45 14:20:00 Test Item Value Reference Range Interpretation Comments Basophils # (test code 0.1 See_Comment [Aut omated message] The = Basophils #) system which generated this result tra nsmitted reference range : <=0.2. The reference r katie was not used to int erpret this result as normal/abnormal . [facility] HospitalUiarbxeYQZUDGUBWL8374-71-11 14:20:00 Test Item Value Reference Range Interpretation Comments Eosinophils # (test code 0.3 See_Comment [A utomated message] The = Eosinophils #) system [facility] [employer] generated this result tra nsmitted reference range : <=0.5. The reference r katie was not used to int erpret this result as normal/abnormal . [facility] HospitalNdebpirBWEZEPRCII5731-98-17 14:20:00 Test Item Value Reference Range Interpretation Comments Basophils (test code = 1.0 See_Comment [Aut omated message] The Basophils) system which ge nerated this result tra nsmitted reference range : <=1.0. The reference r katie was not used to int erpret this result as normal/abnormal . [facility] HospitalOrxwbluQULPQVUJRJ1227-09-80 14:20:00 Test Item Value Reference Range Interpretation Comments Basophils # (test code 0.1 See_Comment [Aut omated message] The = Basophils #) system which generated this result tra nsmitted reference range : <=0.2. The reference r katie was not used to int erpret this result as normal/abnormal . [facility] HospitalDfqeszgLLYRAZOIWY5820-59-88 14:20:00 Test Item Value Reference Range Interpretation Comments Eosinophils # (test code 0.3 See_Comment [A utomated message] The = Eosinophils #) system [facility] [employer] generated this result tra nsmitted reference range : <=0.5. The reference r katie was not used to int erpret this result as normal/abnormal . [facility] HospitalWasufiwMMMKFUEHWF0591-62-47 14:20:00 Test Item Value Reference Range Interpretation Comments Basophils (test code = 1.0 See_Comment [Aut omated message] The Basophils) system which ge nerated this result tra nsmitted reference range : <=1.0. The reference r katie was not used to int erpret this result as normal/abnormal . [facility] HospitalKqeyjavFUEGMJATGF3428-02-76 14:18:00 Test Item Value Reference Range Interpretation Comments POC Hemoglobin (test code = POC 10.2 12.0-16.0 Hemoglobin) [facility] HospitalVkjtdicPVFIOPPPWF2945-74-05 14:18:00 Test Item Value Reference Range Interpretation Comments POC AGAP (test code = POC AGAP) 15.0 10.0-20.0 [facility] HospitalBjfiirmSTAZROIYEY6440-07-13 14:18:00 Test Item Value Reference Range Interpretation Comments POC Creatinine (test code = POC 1.1 0.5-1.4 Creatinine) [facility] HospitalBpenzfgIAVHPCVAPT6795-09-88 14:18:00 Test Item Value Reference Range Interpretation Comments POC BUN (test code = POC BUN) 18 7-22 [facility] HospitalHfmmanaGAHZIWTUAN7476-39-17 14:18:00 Test Item Value Reference Range Interpretation Comments POC Carbon Dioxide (test code = POC 27 24-32 Carbon Dioxide) [facility] HospitalElcgxjaCDBKHDZFLI0933-52-06 14:18:00 Test Item Value Reference Range Interpretation Comments POC Glucose (test code = POC Glucose) 101 70-99 [facility] HospitalCsvdbxeDVYJUICAEP6219-97-34 14:18:00 Test Item Value Reference Range Interpretation Comments POC Ion Ca (test code = POC Ion Ca) 1.29 1.05-1.25 [facility] HospitalBqfwghgZHFLLYQAEX9737-89-57 14:18:00 Test Item Value Reference Range Interpretation Comments POC Hematocrit (test code = POC 30.0 36.0-48.0 Hematocrit) [facility] HospitalJbhoaquXCBMGIIYJU5434-43-53 14:18:00 Test Item Value Reference Range Interpretation Comments POC Chloride (test code = POC Chloride) 103 95-109 [facility] HospitalQbxcyujGEBCSYXPFV9588-36-06 14:18:00 Test Item Value Reference Range Interpretation Comments POC Sodium (test code = POC Sodium) 139 135-145 [facility] HospitalVuyjaixFRNKHHXFIS5665-31-72 14:18:00 Test Item Value Reference Range Interpretation Comments POC Potassium (test code = POC 4.1 3.5-5.1 Potassium) [facility] HospitalZihbadoOJPCHJFMNO2536-89-83 14:18:00 Test Item Value Reference Range Interpretation Comments POC Hemoglobin (test code = POC 10.2 12.0-16.0 Hemoglobin) [facility] HospitalVsvrtyeNPGXAQKZKI9031-05-37 14:18:00 Test Item Value Reference Range Interpretation Comments POC AGAP (test code = POC AGAP) 15.0 10.0-20.0 [facility] HospitalAnbrrneYSXTNFDKDI9267-17-08 14:18:00 Test Item Value Reference Range Interpretation Comments POC Creatinine (test code = POC 1.1 0.5-1.4 Creatinine) [facility] HospitalWfcmlmaLSTUUWMJON0280-64-88 14:18:00 Test Item Value Reference Range Interpretation Comments POC BUN (test code = POC BUN) 18 7-22 [facility] HospitalDhziqtxGBPEXEKPFW9578-83-80 14:18:00 Test Item Value Reference Range Interpretation Comments POC Carbon Dioxide (test code = POC 27 24-32 Carbon Dioxide) [facility] HospitalZeixbugXVFODCHFOJ7179-11-40 14:18:00 Test Item Value Reference Range Interpretation Comments POC Glucose (test code = POC Glucose) 101 70-99 [facility] HospitalOkdvxizZNHQSVPSCA6897-57-61 14:18:00 Test Item Value Reference Range Interpretation Comments POC Ion Ca (test code = POC Ion Ca) 1.29 1.05-1.25 [facility] HospitalIqsfmuvACNXMSITNX0410-11-62 14:18:00 Test Item Value Reference Range Interpretation Comments POC Hematocrit (test code = POC 30.0 36.0-48.0 Hematocrit) [facility] HospitalLjpdcsjUUPKDDFRHY3336-98-70 14:18:00 Test Item Value Reference Range Interpretation Comments POC Chloride (test code = POC Chloride) 103 95-109 [facility] HospitalCkwhezsULVREGSZCP4852-52-64 14:18:00 Test Item Value Reference Range Interpretation Comments POC Sodium (test code = POC Sodium) 139 135-145 [facility] HospitalEtrcataAYOLLLRNDF5030-62-46 14:18:00 Test Item Value Reference Range Interpretation Comments POC Potassium (test code = POC 4.1 3.5-5.1 Potassium) [facility] HospitalGtbsdmoEHACDSZYUT6853-02-70 14:18:00 Test Item Value Reference Range Interpretation Comments POC Hemoglobin (test code = POC 10.2 12.0-16.0 Hemoglobin) [facility] HospitalLjmbugiFNQIRAKSQH3598-15-71 14:18:00 Test Item Value Reference Range Interpretation Comments POC AGAP (test code = POC AGAP) 15.0 10.0-20.0 [facility] HospitalKmsmgtyZDVXOXCNAZ7079-90-68 14:18:00 Test Item Value Reference Range Interpretation Comments POC Creatinine (test code = POC 1.1 0.5-1.4 Creatinine) [facility] HospitalCghvienCBLNGJPWUM1359-26-51 14:18:00 Test Item Value Reference Range Interpretation Comments POC BUN (test code = POC BUN) 01-15 [facility] HospitalXgqtmgzPQXVZXQSVP8421-03-87 14:18:00 Test Item Value Reference Range Interpretation Comments POC Carbon Dioxide (test code = POC 27 24-32 Carbon Dioxide) [facility] HospitalAypjgotRXEOCWIGJB7220-73-70 14:18:00 Test Item Value Reference Range Interpretation Comments POC Glucose (test code = POC Glucose) 101 70-99 [facility] HospitalIwpwockTKTTZOZFPL3898-79-31 14:18:00 Test Item Value Reference Range Interpretation Comments POC Ion Ca (test code = POC Ion Ca) 1.29 1.05-1.25 [facility] HospitalLvatnhuUMCNZMUCHW3273-37-71 14:18:00 Test Item Value Reference Range Interpretation Comments POC Hematocrit (test code = POC 30.0 36.0-48.0 Hematocrit) [facility] HospitalNccgwzcNTCUBDNYYU3051-78-93 14:18:00 Test Item Value Reference Range Interpretation Comments POC Chloride (test code = POC Chloride) 103 95-109 [facility] HospitalGytjmldRIPPEDTGMA3226-97-70 14:18:00 Test Item Value Reference Range Interpretation Comments POC Sodium (test code = POC Sodium) 139 135-145 [facility] HospitalFlenfdnGUEIVMXJZU4507-09-37 14:18:00 Test Item Value Reference Range Interpretation Comments POC Potassium (test code = POC 4.1 3.5-5.1 Potassium) [facility] HospitalPdiigvvQPXQUEZGGX3879-38-43 14:18:00 Test Item Value Reference Range Interpretation Comments POC Hemoglobin (test code = POC 10.2 12.0-16.0 Hemoglobin) [facility] HospitalCexydqhPLOCCMCWSG9427-40-19 14:18:00 Test Item Value Reference Range Interpretation Comments POC AGAP (test code = POC AGAP) 15.0 10.0-20.0 [facility] HospitalLitlgirINLKLENNHO3489-63-84 14:18:00 Test Item Value Reference Range Interpretation Comments POC Creatinine (test code = POC 1.1 0.5-1.4 Creatinine) [facility] HospitalHvrktnmGTRWYZLSCL0643-09-89 14:18:00 Test Item Value Reference Range Interpretation Comments POC BUN (test code = POC BUN) 01-15 [facility] HospitalVdwiefgFEMTYBLPTT5757-37-27 14:18:00 Test Item Value Reference Range Interpretation Comments POC Carbon Dioxide (test code = POC 27 24-32 Carbon Dioxide) [facility] HospitalGqnrkuzHZKULEDPUQ9090-49-45 14:18:00 Test Item Value Reference Range Interpretation Comments POC Glucose (test code = POC Glucose) 101 70-99 [facility] HospitalEuyfvyjMBQOZWDHOI1116-92-52 14:18:00 Test Item Value Reference Range Interpretation Comments POC Ion Ca (test code = POC Ion Ca) 1.29 1.05-1.25 [facility] HospitalIgyrlygYNDJMOLPPV9004-85-42 14:18:00 Test Item Value Reference Range Interpretation Comments POC Hematocrit (test code = POC 30.0 36.0-48.0 Hematocrit) [facility] HospitalAcjfjxdIVUKEEIINK9953-84-62 14:18:00 Test Item Value Reference Range Interpretation Comments POC Chloride (test code = POC Chloride) 103 95-109 [facility] HospitalEuodzlsDUTHPVTFOU7257-95-43 14:18:00 Test Item Value Reference Range Interpretation Comments POC Sodium (test code = POC Sodium) 139 135-145 [facility] HospitalCivxrhcUKWAJYNLQD7298-76-95 14:18:00 Test Item Value Reference Range Interpretation Comments POC Potassium (test code = POC 4.1 3.5-5.1 Potassium) [facility] HospitalHwrlixwIKOCDWVFJP7251-13-87 14:18:00 Test Item Value Reference Range Interpretation Comments POC Hemoglobin (test code = POC 10.2 12.0-16.0 Hemoglobin) [facility] HospitalZywehgwGULUMBOJMP9898-30-73 14:18:00 Test Item Value Reference Range Interpretation Comments POC AGAP (test code = POC AGAP) 15.0 10.0-20.0 [facility] HospitalPlynapcXYEKDZOZEZ0825-18-08 14:18:00 Test Item Value Reference Range Interpretation Comments POC Creatinine (test code = POC 1.1 0.5-1.4 Creatinine) [facility] HospitalJidnigfNDAESNLOAV5118-62-31 14:18:00 Test Item Value Reference Range Interpretation Comments POC BUN (test code = POC BUN) 18 7-22 [facility] HospitalOckfclrQPZUEPVMPN6621-34-51 14:18:00 Test Item Value Reference Range Interpretation Comments POC Carbon Dioxide (test code = POC 27 24-32 Carbon Dioxide) [facility] HospitalNqhaooaOLBSOFAWOX3567-58-19 14:18:00 Test Item Value Reference Range Interpretation Comments POC Glucose (test code = POC Glucose) 101 70-99 [facility] HospitalOjnvnxeYZVDDWLYTH7921-41-59 14:18:00 Test Item Value Reference Range Interpretation Comments POC Ion Ca (test code = POC Ion Ca) 1.29 1.05-1.25 [facility] HospitalTvqfvzwWVHJUKUIUT6647-69-51 14:18:00 Test Item Value Reference Range Interpretation Comments POC Hematocrit (test code = POC 30.0 36.0-48.0 Hematocrit) [facility] HospitalEfcvtwaQLINCPDORT8095-48-94 14:18:00 Test Item Value Reference Range Interpretation Comments POC Chloride (test code = POC Chloride) 103 95-109 [facility] HospitalErmkebtDXXQGUSCXK4314-89-39 14:18:00 Test Item Value Reference Range Interpretation Comments POC Sodium (test code = POC Sodium) 139 135-145 [facility] HospitalSgdipaeAKXSWDJXAT5280-90-33 14:18:00 Test Item Value Reference Range Interpretation Comments POC Potassium (test code = POC 4.1 3.5-5.1 Potassium) [facility] HospitalKaovwnvVIWCKZHVWB3222-37-87 14:18:00 Test Item Value Reference Range Interpretation Comments POC Hemoglobin (test code = POC 10.2 12.0-16.0 Hemoglobin) [facility] HospitalKlghuozDQSUNBXWES3163-15-10 14:18:00 Test Item Value Reference Range Interpretation Comments POC AGAP (test code = POC AGAP) 15.0 10.0-20.0 [facility] HospitalUwnbdrdXDDYBDOAXQ0790-62-21 14:18:00 Test Item Value Reference Range Interpretation Comments POC Creatinine (test code = POC 1.1 0.5-1.4 Creatinine) [facility] HospitalVcxkublFSMBMRXJVV0679-89-59 14:18:00 Test Item Value Reference Range Interpretation Comments POC BUN (test code = POC BUN) 18 7-22 [facility] HospitalGywwimiCYKSGVGTDZ5992-48-46 14:18:00 Test Item Value Reference Range Interpretation Comments POC Carbon Dioxide (test code = POC 27 24-32 Carbon Dioxide) [facility] HospitalRaprpanTGKZDBXEBU5970-07-09 14:18:00 Test Item Value Reference Range Interpretation Comments POC Glucose (test code = POC Glucose) 101 70-99 [facility] HospitalGutnzrsSFTVIUQYXI4272-36-96 14:18:00 Test Item Value Reference Range Interpretation Comments POC Ion Ca (test code = POC Ion Ca) 1.29 1.05-1.25 [facility] HospitalAwhyplgFIGAKKJFRA3325-47-56 14:18:00 Test Item Value Reference Range Interpretation Comments POC Hematocrit (test code = POC 30.0 36.0-48.0 Hematocrit) [facility] HospitalWgsxkorAWNJLIJACY6600-28-84 14:18:00 Test Item Value Reference Range Interpretation Comments POC Chloride (test code = POC Chloride) 103 95-109 [facility] HospitalPyqjifmGNEZWUNIYS9750-54-20 14:18:00 Test Item Value Reference Range Interpretation Comments POC Sodium (test code = POC Sodium) 139 135-145 [facility] HospitalBfikovsCKOGZDWHPR2310-32-26 14:18:00 Test Item Value Reference Range Interpretation Comments POC Potassium (test code = POC 4.1 3.5-5.1 Potassium) [facility] HospitalJggemmxVMAPSCWZRXDA1900-36-84 14:05:00 Test Item Value Reference Range Interpretation Comments POC Sodium (test code = POC Sodium) 138 135-[address] [facility] HospitalAbngqnoIHANMNDKJQEO8818-18-08 14:05:00 Test Item Value Reference Range Interpretation Comments POC Hemoglobin (test code = POC 7.8 12.0-16.0 Hemoglobin) [facility] HospitalPmgmyjbFIUFRVONGPAJ9394-46-62 14:05:00 Test Item Value Reference Range Interpretation Comments POC Glucose (test code = POC Glucose) 101 70-[address] [facility] HospitalCorqxpjJDTTMHACNWSZ2111-70-35 14:05:00 Test Item Value Reference Range Interpretation Comments POC Ion Ca (test code = POC Ion Ca) 1.30 1.05-1.[address] [facility] HospitalEslormaBZMJYSIYPIOO4406-71-35 14:05:00 Test Item Value Reference Range Interpretation Comments POC Hematocrit (test code = POC 23.0 36.0-48.0 Hematocrit) [facility] HospitalOtobcwlQBHLVPVEIXJQ1217-43-61 14:05:00 Test Item Value Reference Range Interpretation Comments POC Creatinine (test code = POC 1.0 0.5-1.4 Creatinine) [facility] HospitalKivziwwSVAMKWBZFDPV7455-67-91 14:05:00 Test Item Value Reference Range Interpretation Comments POC BUN (test code = POC BUN) 21 7-[address] [facility] HospitalXzquhwyNFKLZAQWUMNA6679-94-59 14:05:00 Test Item Value Reference Range Interpretation Comments POC Carbon Dioxide (test code = POC 29 24-32 Carbon Dioxide) [facility] HospitalTsypjpoLARXACXMVAXB2928-04-94 14:05:00 Test Item Value Reference Range Interpretation Comments POC AGAP (test code = POC AGAP) 11.0 10.0-20.[address] [facility] HospitalVvohdwpKAYOISGYRGNV6321-64-92 14:05:00 Test Item Value Reference Range Interpretation Comments POC Chloride (test code = POC Chloride) 104 95-[address] [facility] HospitalXykjperPZNAHQAWDSZM8251-91-06 14:05:00 Test Item Value Reference Range Interpretation Comments POC Potassium (test code = POC 4.6 3.5-5.1 Potassium) [facility] HospitalYvixugvQEYUZWBFMJJJ6503-85-07 14:05:00 Test Item Value Reference Range Interpretation Comments POC Sodium (test code = POC Sodium) 138 135-[address] [facility] HospitalAudjdmyWTSQMSDTMAOR6433-77-98 14:05:00 Test Item Value Reference Range Interpretation Comments POC Hemoglobin (test code = POC 7.8 12.0-16.0 Hemoglobin) [facility] HospitalYpkqppyBWPUDQSZPJCB4104-67-28 14:05:00 Test Item Value Reference Range Interpretation Comments POC Glucose (test code = POC Glucose) 101 70-[address] [facility] HospitalGtewfrdKHHHUQRZGGPH7347-17-50 14:05:00 Test Item Value Reference Range Interpretation Comments POC Ion Ca (test code = POC Ion Ca) 1.30 1.05-1.[address] [facility] HospitalXpsffvzCIZNETYHMHPL7508-27-14 14:05:00 Test Item Value Reference Range Interpretation Comments POC Hematocrit (test code = POC 23.0 36.0-48.0 Hematocrit) [facility] HospitalWijthstOAIZHXRJDIXS9624-87-65 14:05:00 Test Item Value Reference Range Interpretation Comments POC Creatinine (test code = POC 1.0 0.5-1.4 Creatinine) [facility] HospitalRmalmaaFUQBZOPKKWRI4416-31-85 14:05:00 Test Item Value Reference Range Interpretation Comments POC BUN (test code = POC BUN) 21 7-[address] [facility] HospitalTcosqrdUOHHHTXRHTZK9550-40-04 14:05:00 Test Item Value Reference Range Interpretation Comments POC Carbon Dioxide (test code = POC 29 24-32 Carbon Dioxide) [facility] HospitalRdsubehWWALYVANERFG8942-69-15 14:05:00 Test Item Value Reference Range Interpretation Comments POC AGAP (test code = POC AGAP) 11.0 10.0-20.[address] [facility] HospitalIyzjhouVWANDPYFEOZF6688-26-04 14:05:00 Test Item Value Reference Range Interpretation Comments POC Chloride (test code = POC Chloride) 104 95-[address] [facility] HospitalOwcsghgWJPZCNPWCGXL6168-83-86 14:05:00 Test Item Value Reference Range Interpretation Comments POC Potassium (test code = POC 4.6 3.5-5.1 Potassium) [facility] HospitalZnvvrfqOLWNGMZFJPKE8109-85-46 14:05:00 Test Item Value Reference Range Interpretation Comments POC Sodium (test code = POC Sodium) 138 135-[address] [facility] HospitalLltkjbeFGDGNCSOLMSX3416-33-64 14:05:00 Test Item Value Reference Range Interpretation Comments POC Hemoglobin (test code = POC 7.8 12.0-16.0 Hemoglobin) [facility] HospitalSthzuxhHOKYWYHBGVLP5457-46-66 14:05:00 Test Item Value Reference Range Interpretation Comments POC Glucose (test code = POC Glucose) 101 70-[address] [facility] HospitalSgwkerbFLJGNVNNTRFV1869-88-40 14:05:00 Test Item Value Reference Range Interpretation Comments POC Ion Ca (test code = POC Ion Ca) 1.30 1.05-1.[address] [facility] HospitalWyqclovNUBIHWZOEXHK8625-68-86 14:05:00 Test Item Value Reference Range Interpretation Comments POC Hematocrit (test code = POC 23.0 36.0-48.0 Hematocrit) [facility] HospitalYywjzkkJXXEGPSQXFQN1708-21-43 14:05:00 Test Item Value Reference Range Interpretation Comments POC Creatinine (test code = POC 1.0 0.5-1.4 Creatinine) [facility] HospitalSsifjjkMBDSETDCZOZV5590-07-43 14:05:00 Test Item Value Reference Range Interpretation Comments POC BUN (test code = POC BUN) 21 7-[address] [facility] HospitalThwclbzHGLKFRQYADBX0035-02-16 14:05:00 Test Item Value Reference Range Interpretation Comments POC Carbon Dioxide (test code = POC 29 24-32 Carbon Dioxide) [facility] HospitalQrlfxtcFMQOUILJVNWQ0541-91-91 14:05:00 Test Item Value Reference Range Interpretation Comments POC AGAP (test code = POC AGAP) 11.0 10.0-20.[address] [facility] HospitalCmsljwtMWFDRRANJMAP2106-10-49 14:05:00 Test Item Value Reference Range Interpretation Comments POC Chloride (test code = POC Chloride) 104 95-[address] [facility] HospitalXiazgdgCEUNFYYOKYMI0632-62-65 14:05:00 Test Item Value Reference Range Interpretation Comments POC Potassium (test code = POC 4.6 3.5-5.1 Potassium) [facility] HospitalVkwvfyhJSJWABOFKNWB0118-90-13 14:05:00 Test Item Value Reference Range Interpretation Comments POC Sodium (test code = POC Sodium) 138 135-[address] [facility] HospitalVqmivklKGASYOPDYQZM4324-68-49 14:05:00 Test Item Value Reference Range Interpretation Comments POC Hemoglobin (test code = POC 7.8 12.0-16.0 Hemoglobin) [facility] HospitalRqyxnltDCLTITMZCOZP8264-70-94 14:05:00 Test Item Value Reference Range Interpretation Comments POC Glucose (test code = POC Glucose) 101 70-[address] [facility] HospitalUseqwvhXPFJFLNTXWJG7732-40-34 14:05:00 Test Item Value Reference Range Interpretation Comments POC Ion Ca (test code = POC Ion Ca) 1.30 1.05-1.[address] [facility] HospitalNazhoaaHYMZVTVGSECG9460-62-46 14:05:00 Test Item Value Reference Range Interpretation Comments POC Hematocrit (test code = POC 23.0 36.0-48.0 Hematocrit) [facility] HospitalRjcnazeAQLHSRGKVEVZ2260-67-87 14:05:00 Test Item Value Reference Range Interpretation Comments POC Creatinine (test code = POC 1.0 0.5-1.4 Creatinine) [facility] HospitalQyqgvupOJCKHUSWTMCY5642-10-43 14:05:00 Test Item Value Reference Range Interpretation Comments POC BUN (test code = POC BUN) 21 7-[address] [facility] HospitalKinnuqeALFNMSAAABXZ8463-52-85 14:05:00 Test Item Value Reference Range Interpretation Comments POC Carbon Dioxide (test code = POC 29 24-32 Carbon Dioxide) [facility] HospitalTaxmdeoSZDBHNMWMNYC7463-69-24 14:05:00 Test Item Value Reference Range Interpretation Comments POC AGAP (test code = POC AGAP) 11.0 10.0-20.[address] [facility] HospitalDozyploFTGWOHPSIPCM4094-71-46 14:05:00 Test Item Value Reference Range Interpretation Comments POC Chloride (test code = POC Chloride) 104 95-[address] [facility] HospitalMramjqyUMAMONSYXNRR4359-41-00 14:05:00 Test Item Value Reference Range Interpretation Comments POC Potassium (test code = POC 4.6 3.5-5.1 Potassium) [facility] HospitalDiullqxXNSSHFERZZOE9990-06-31 14:05:00 Test Item Value Reference Range Interpretation Comments POC Sodium (test code = POC Sodium) 138 135-[address] [facility] HospitalLaozeikFJNIKVUAXTXQ4097-31-93 14:05:00 Test Item Value Reference Range Interpretation Comments POC Hemoglobin (test code = POC 7.8 12.0-16.0 Hemoglobin) [facility] HospitalGszcwjkTNAGRTEZJKFN7398-58-89 14:05:00 Test Item Value Reference Range Interpretation Comments POC Glucose (test code = POC Glucose) 101 70-[address] [facility] HospitalMsfyshsSKARANYCWQCZ8590-68-10 14:05:00 Test Item Value Reference Range Interpretation Comments POC Ion Ca (test code = POC Ion Ca) 1.30 1.05-1.[address] [facility] HospitalZcdrnskFORJMASLEFJK5494-69-07 14:05:00 Test Item Value Reference Range Interpretation Comments POC Hematocrit (test code = POC 23.0 36.0-48.0 Hematocrit) [facility] HospitalIqplligTZQQQZKQRVRV2588-16-55 14:05:00 Test Item Value Reference Range Interpretation Comments POC Creatinine (test code = POC 1.0 0.5-1.4 Creatinine) [facility] HospitalYsofbmzAOLKAIIFOWCX9819-60-07 14:05:00 Test Item Value Reference Range Interpretation Comments POC BUN (test code = POC BUN) 01-[address] [facility] HospitalJweoeijQOXBWOLVMXPT3779-44-04 14:05:00 Test Item Value Reference Range Interpretation Comments POC Carbon Dioxide (test code = POC 29 24-32 Carbon Dioxide) [facility] HospitalRoevacbVHYEOBPPTLJQ6290-35-45 14:05:00 Test Item Value Reference Range Interpretation Comments POC AGAP (test code = POC AGAP) 11.0 10.0-20.[address] [facility] HospitalPsgpccbPNHEURAKJXHF8747-92-31 14:05:00 Test Item Value Reference Range Interpretation Comments POC Chloride (test code = POC Chloride) 104 95-[address] [facility] HospitalYlwzbslHTVVINKKZMLO7891-29-85 14:05:00 Test Item Value Reference Range Interpretation Comments POC Potassium (test code = POC 4.6 3.5-5.1 Potassium) [facility] HospitalOwzxvvpHTWLBZCZHGAI1369-74-65 14:05:00 Test Item Value Reference Range Interpretation Comments POC Sodium (test code = POC Sodium) 138 135-[address] [facility] HospitalLmbzvnpJOMNBIZSHPTY3757-19-96 14:05:00 Test Item Value Reference Range Interpretation Comments POC Hemoglobin (test code = POC 7.8 12.0-16.0 Hemoglobin) [facility] HospitalFncoubcGBGWEOWUCHDJ8572-23-04 14:05:00 Test Item Value Reference Range Interpretation Comments POC Glucose (test code = POC Glucose) 101 70-[address] [facility] HospitalKruktgoLWDAXOSOHJVS5415-36-11 14:05:00 Test Item Value Reference Range Interpretation Comments POC Ion Ca (test code = POC Ion Ca) 1.30 1.05-1.[address] [facility] HospitalOjwnmbyZXXIRTQFWOOB7380-68-12 14:05:00 Test Item Value Reference Range Interpretation Comments POC Hematocrit (test code = POC 23.0 36.0-48.0 Hematocrit) [facility] HospitalUtnbaeePCZHSNIWTFCM9686-47-54 14:05:00 Test Item Value Reference Range Interpretation Comments POC Creatinine (test code = POC 1.0 0.5-1.4 Creatinine) [facility] HospitalTwpefsyBYXZZJHGOKEQ7929-85-33 14:05:00 Test Item Value Reference Range Interpretation Comments POC BUN (test code = POC BUN) 21 7-[address] [facility] HospitalAwojmvoVPZWEYHMGBOL1943-69-42 14:05:00 Test Item Value Reference Range Interpretation Comments POC Carbon Dioxide (test code = POC 29 24-32 Carbon Dioxide) [facility] HospitalRjkfutmTAWEUMEHNGZO4799-17-85 14:05:00 Test Item Value Reference Range Interpretation Comments POC AGAP (test code = POC AGAP) 11.0 10.0-20.[address] [facility] HospitalIvnsmzuNZQVWEDKBWQB0007-88-99 14:05:00 Test Item Value Reference Range Interpretation Comments POC Chloride (test code = POC Chloride) 104 95-[address] [facility] HospitalIotgpiaKDCFYLMRMVRV7002-00-78 14:05:00 Test Item Value Reference Range Interpretation Comments POC Potassium (test code = POC 4.6 3.5-5.1 Potassium) [facility]2018-05-11 17:08:00 Test Item Value Reference Range Interpretation Comments eGFR (test code = eGFR) 59 [facility]2018-05-11 17:08:00 Test Item Value Reference Range Interpretation Comments POC Creatinine (test code = POC 1.0 0.5-1.4 Creatinine) [facility]2018-05-11 17:08:00 Test Item Value Reference Range Interpretation Comments eGFR (test code = eGFR) 59 [facility]2018-05-11 17:08:00 Test Item Value Reference Range Interpretation Comments POC Creatinine (test code = POC 1.0 0.5-1.4 Creatinine) [facility]2018-05-11 17:08:00 Test Item Value Reference Range Interpretation Comments eGFR (test code = eGFR) 59 [facility]2018-05-11 17:08:00 Test Item Value Reference Range Interpretation Comments POC Creatinine (test code = POC 1.0 0.5-1.4 Creatinine) [facility]2018-05-11 17:08:00 Test Item Value Reference Range Interpretation Comments eGFR (test code = eGFR) 59 [place] 848658-05-11 17:08:00 Test Item Value Reference Range Interpretation Comments POC Creatinine (test code = POC 1.0 0.5-1.4 Creatinine) [facility]2018-05-11 17:08:00 Test Item Value Reference Range Interpretation Comments eGFR (test code = eGFR) 59 [facility]2018-05-11 17:08:00 Test Item Value Reference Range Interpretation Comments POC Creatinine (test code = POC 1.0 0.5-1.4 Creatinine) [facility]2018-05-11 17:08:00 Test Item Value Reference Range Interpretation Comments eGFR (test code = eGFR) 59 [facility]2018-05-11 17:08:00 Test Item Value Reference Range Interpretation Comments POC Creatinine (test code = POC 1.0 0.5-1.4 Creatinine) [facility]2016-06-13 17:32:00 Test Item Value Reference Range Interpretation Comments eGFR (test code = eGFR) 60 [facility]2016-06-13 17:32:00 Test Item Value Reference Range Interpretation Comments POC Creatinine (test code = POC 1.0 0.5-1.4 Creatinine) [facility]2016-06-13 17:32:00 Test Item Value Reference Range Interpretation Comments eGFR (test code = eGFR) 60 [place] 848656-06-13 17:32:00 Test Item Value Reference Range Interpretation Comments POC Creatinine (test code = POC 1.0 0.5-1.4 Creatinine) [facility]2016-06-13 17:32:00 Test Item Value Reference Range Interpretation Comments eGFR (test code = eGFR) 60 [facility]2016-06-13 17:32:00 Test Item Value Reference Range Interpretation Comments POC Creatinine (test code = POC 1.0 0.5-1.4 Creatinine) [facility]2016-06-13 17:32:00 Test Item Value Reference Range Interpretation Comments eGFR (test code = eGFR) 60 [place] 848656-06-13 17:32:00 Test Item Value Reference Range Interpretation Comments POC Creatinine (test code = POC 1.0 0.5-1.4 Creatinine) [facility]2016-06-13 17:32:00 Test Item Value Reference Range Interpretation Comments eGFR (test code = eGFR) 60 [place] 848656-06-13 17:32:00 Test Item Value Reference Range Interpretation Comments POC Creatinine (test code = POC 1.0 0.5-1.4 Creatinine) [facility]2016-06-13 17:32:00 Test Item Value Reference Range Interpretation Comments eGFR (test code = eGFR) 60 [facility]2016-06-13 17:32:00 Test Item Value Reference Range Interpretation Comments POC Creatinine (test code = POC 1.0 0.5-1.4 Creatinine) [facility]2014-08-17 10:00:00 Test Item Value Reference Range Interpretation Comments eGFR (test code = eGFR) 69 [facility]2014-08-17 10:00:00 Test Item Value Reference Range Interpretation Comments Sodium Lvl (test code = Sodium Lvl) 137 135-145 [facility]2014-08-17 10:00:00 Test Item Value Reference Range Interpretation Comments Potassium Lvl (test code = Potassium 4.2 3.5-5.1 Lvl) [facility]2014-08-17 10:00:00 Test Item Value Reference Range Interpretation Comments Chloride Lvl (test code = Chloride Lvl) 105 95-109 [facility]2014-08-17 10:00:00 Test Item Value Reference Range Interpretation Comments BUN (test code = BUN) 9 7-22 [facility]2014-08-17 10:00:00 Test Item Value Reference Range Interpretation Comments Creatinine Lvl (test code = Creatinine 0.9 0.5-1.4 Lvl) [facility]2014-08-17 10:00:00 Test Item Value Reference Range Interpretation Comments Glucose Lvl (test code = Glucose Lvl) 144 70-99 [facility]2014-08-17 10:00:00 Test Item Value Reference Range Interpretation Comments CO2 (test code = CO2) 25 24-32 [facility]2014-08-17 10:00:00 Test Item Value Reference Range Interpretation Comments Calcium Lvl (test code = Calcium Lvl) 8.4 8.5-10.5 [facility]2014-08-17 10:00:00 Test Item Value Reference Range Interpretation Comments AGAP (test code = AGAP) 11.2 10.0-20.0 [facility]2014-08-17 10:00:00 Test Item Value Reference Range Interpretation Comments Magnesium Lvl (test code = Magnesium 1.6 1.8-2.4 Lvl) [facility]XvngrbdNFNVMLPLAA7784-91-34 10:00:00 Test Item Value Reference Range Interpretation Comments INR (test code = INR) 0.99 0.85-1.17 [facility] HospitalZrjjudhZQNFZRJYTA3534-85-71 10:00:00 Test Item Value Reference Range Interpretation Comments PT (test code = PT) 13.0 s 12.0-14.7 [facility] HospitalOnbtbvzBDLKMPJOAE5073-25-19 10:00:00 Test Item Value Reference Range Interpretation Comments PTT (test code = PTT) 32.2 s 22.9-35.8 [facility] HospitalTarullyTLFLCCKSKK4463-10-38 10:00:00 Test Item Value Reference Range Interpretation Comments Platelet (test code = Platelet) 156 133-450 [facility] HospitalJwggnelLFIGHASXUC4566-59-75 10:00:00 Test Item Value Reference Range Interpretation Comments RDW (test code = RDW) 18.5 11.5-14.5 [facility] HospitalAemzshrPHJCALMFPF2170-75-86 10:00:00 Test Item Value Reference Range Interpretation Comments MPV (test code = MPV) 7.4 7.4-10.4 [facility] HospitalJwqfynrQGBSOQNHPB1822-92-68 10:00:00 Test Item Value Reference Range Interpretation Comments WBC (test code = WBC) 8.5 3.7-10.4 [facility] HospitalLskxgtfUTZXDCURYG8704-92-26 10:00:00 Test Item Value Reference Range Interpretation Comments RBC (test code = RBC) 3.09 4.20-5.40 [facility] HospitalFrzeaxaZOXOFIQNWF2519-89-82 10:00:00 Test Item Value Reference Range Interpretation Comments Hct (test code = Hct) 28.3 36.0-48.0 [facility] HospitalLisxrkbAEFJYJTKBW7870-47-18 10:00:00 Test Item Value Reference Range Interpretation Comments MCH (test code = MCH) 31.4 pg 27.0-31.0 [facility] HospitalXgtyhnqOHOIKPYOMT2836-24-93 10:00:00 Test Item Value Reference Range Interpretation Comments MCV (test code = MCV) 91.6 81.0-99.0 [facility] HospitalQiriiskHHEZDGWRMA5458-09-26 10:00:00 Test Item Value Reference Range Interpretation Comments MCHC (test code = MCHC) 34.3 32.0-36.0 [facility] HospitalHlfpvuvELEIRVAWON1052-28-22 10:00:00 Test Item Value Reference Range Interpretation Comments Hgb (test code = Hgb) 9.7 12.0-16.0 [facility] HospitalIdnweflQMMZFYDWVN0832-68-34 10:00:00 Test Item Value Reference Range Interpretation Comments Lymphocytes (test code = Lymphocytes) 22.6 20.0-40.0 [facility] HospitalFodlxzoQFLTSCXWLR0349-03-32 10:00:00 Test Item Value Reference Range Interpretation Comments Segs (test code = Segs) 66.9 45.0-75.0 [facility] HospitalJglzqmtLERGAZCBXJ6593-53-99 10:00:00 Test Item Value Reference Range Interpretation Comments Monocytes (test code = Monocytes) 7.0 2.0-12.0 [facility] HospitalRfsjoejXGNAONMNYQ4138-42-15 10:00:00 Test Item Value Reference Range Interpretation Comments Basophils (test code = 0.5 See_Comment [Aut omated message] The Basophils) system which ge nerated this result tra nsmitted reference range : <=1.0. The reference r katie was not used to int erpret this result as normal/abnormal . [facility] HospitalGxcgtifXUHPQRIVBL1403-15-74 10:00:00 Test Item Value Reference Range Interpretation Comments Eosinophils (test code = 3.0 See_Comment [A utomated message] The Eosinophils) system which ge nerated this result tra nsmitted reference range : <=4.0. The reference r katie was not used to int erpret this result as normal/abnormal . [facility] HospitalEeqepykPLJYXRBZXW5269-30-73 10:00:00 Test Item Value Reference Range Interpretation Comments Segs-Bands # (test code = Segs-Bands #) 5.7 1.5-8.1 [facility] HospitalIwirliyZYXKVEZHHO3657-82-46 10:00:00 Test Item Value Reference Range Interpretation Comments Basophils # (test code 0.0 See_Comment [Aut omated message] The = Basophils #) system which generated this result tra nsmitted reference range : <=0.2. The reference r katie was not used to int erpret this result as normal/abnormal . [facility] HospitalYxoowhfSZICEYHART1905-34-69 10:00:00 Test Item Value Reference Range Interpretation Comments Eosinophils # (test code 0.3 See_Comment [A utomated message] The = Eosinophils #) system whic h generated this result tra nsmitted reference range : <=0.5. The reference r katie was not used to int erpret this result as normal/abnormal . [facility] HospitalAdsirmtTGQRUFBCBP7381-73-94 10:00:00 Test Item Value Reference Range Interpretation Comments Lymphocytes # (test code = Lymphocytes 1.9 1.0-5.5 #) [facility] HospitalUfhixoxDASQTEJVLN9405-03-06 10:00:00 Test Item Value Reference Range Interpretation Comments Monocytes # (test code 0.6 See_Comment [Aut omated message] The = Monocytes #) system which generated this result tra nsmitted reference range : <=0.8. The reference r katie was not used to int erpret this result as normal/abnormal . [facility]2014-08-17 10:00:00 Test Item Value Reference Range Interpretation Comments eGFR (test code = eGFR) 69 [facility]2014-08-17 10:00:00 Test Item Value Reference Range Interpretation Comments Sodium Lvl (test code = Sodium Lvl) 137 135-145 [facility]2014-08-17 10:00:00 Test Item Value Reference Range Interpretation Comments Potassium Lvl (test code = Potassium 4.2 3.5-5.1 Lvl) [facility]2014-08-17 10:00:00 Test Item Value Reference Range Interpretation Comments Chloride Lvl (test code = Chloride Lvl) 105 95-109 [facility]2014-08-17 10:00:00 Test Item Value Reference Range Interpretation Comments BUN (test code = BUN) 9 7-22 [facility]2014-08-17 10:00:00 Test Item Value Reference Range Interpretation Comments Creatinine Lvl (test code = Creatinine 0.9 0.5-1.4 Lvl) [facility]2014-08-17 10:00:00 Test Item Value Reference Range Interpretation Comments Glucose Lvl (test code = Glucose Lvl) 144 70-99 [facility]2014-08-17 10:00:00 Test Item Value Reference Range Interpretation Comments CO2 (test code = CO2) 25 24-32 [facility]2014-08-17 10:00:00 Test Item Value Reference Range Interpretation Comments Calcium Lvl (test code = Calcium Lvl) 8.4 8.5-10.5 [place] 848654-08-17 10:00:00 Test Item Value Reference Range Interpretation Comments AGAP (test code = AGAP) 11.2 10.0-20.0 [facility]2014-08-17 10:00:00 Test Item Value Reference Range Interpretation Comments Magnesium Lvl (test code = Magnesium 1.6 1.8-2.4 Lvl) [facility] HospitalMugwiahGLHXBSRPRL9984-25-26 10:00:00 Test Item Value Reference Range Interpretation Comments INR (test code = INR) 0.99 0.85-1.17 [facility] HospitalSvtoeljOPWBLJNFYT8605-44-70 10:00:00 Test Item Value Reference Range Interpretation Comments PT (test code = PT) 13.0 s 12.0-14.7 [facility] HospitalJhnzpawIZYWIEGJYO1078-56-77 10:00:00 Test Item Value Reference Range Interpretation Comments PTT (test code = PTT) 32.2 s 22.9-35.8 [facility] HospitalXozssyuNUGYGFIIKG4225-63-63 10:00:00 Test Item Value Reference Range Interpretation Comments Platelet (test code = Platelet) 156 133-450 [facility] HospitalCueanplIPAYEFLZDP4204-50-54 10:00:00 Test Item Value Reference Range Interpretation Comments RDW (test code = RDW) 18.5 11.5-14.5 [facility] HospitalEyadopnDHPESEWNKD8563-16-34 10:00:00 Test Item Value Reference Range Interpretation Comments MPV (test code = MPV) 7.4 7.4-10.4 [facility] [facility]QLMD6147-69-55 10:00:00 Test Item Value Reference Range Interpretation Comments WBC (test code = WBC) 8.5 3.7-10.4 [place] [id number] 10:00:00 Test Item Value Reference Range Interpretation Comments RBC (test code = RBC) 3.09 4.20-5.40 [facility] HospitalVocoqfuWTLFZNQCIH5946-53-86 10:00:00 Test Item Value Reference Range Interpretation Comments Hct (test code = Hct) 28.3 36.0-48.0 [facility] HospitalMojnlasZYBYVLTUSX8871-64-89 10:00:00 Test Item Value Reference Range Interpretation Comments MCH (test code = MCH) 31.4 pg 27.0-31.0 [facility] HospitalBsdaaayXPXXOWZXRY0539-26-22 10:00:00 Test Item Value Reference Range Interpretation Comments MCV (test code = MCV) 91.6 81.0-99.0 [facility] HospitalPyxnxloVOQCPFPELB8246-60-23 10:00:00 Test Item Value Reference Range Interpretation Comments MCHC (test code = MCHC) 34.3 32.0-36.0 [facility] HospitalJvwygirFMMYMZSMIJ5028-26-20 10:00:00 Test Item Value Reference Range Interpretation Comments Hgb (test code = Hgb) 9.7 12.0-16.0 [facility] HospitalHlslcflKWNYRXBHMS1450-66-13 10:00:00 Test Item Value Reference Range Interpretation Comments Lymphocytes (test code = Lymphocytes) 22.6 20.0-40.0 [facility] HospitalJmkniifRXDVVUNGAE1314-16-13 10:00:00 Test Item Value Reference Range Interpretation Comments Segs (test code = Segs) 66.9 45.0-75.0 [facility] HospitalTnabbfeQWOZOSSGOQ4173-17-55 10:00:00 Test Item Value Reference Range Interpretation Comments Monocytes (test code = Monocytes) 7.0 2.0-12.0 [facility] HospitalZlzjnqqHSEDEMYWXF2097-32-00 10:00:00 Test Item Value Reference Range Interpretation Comments Basophils (test code = 0.5 See_Comment [Aut omated message] The Basophils) system which ge nerated this result tra nsmitted reference range : <=1.0. The reference r katie was not used to int erpret this result as normal/abnormal . [facility] HospitalOujwzhmBOPANMCYOY5967-68-87 10:00:00 Test Item Value Reference Range Interpretation Comments Eosinophils (test code = 3.0 See_Comment [A utomated message] The Eosinophils) system which ge nerated this result tra nsmitted reference range : <=4.0. The reference r katie was not used to int erpret this result as normal/abnormal . [facility] HospitalMvgttavRBRABSJKHZ1793-14-81 10:00:00 Test Item Value Reference Range Interpretation Comments Segs-Bands # (test code = Segs-Bands #) 5.7 1.5-8.1 [facility] HospitalCqrxwrqWTTSDXMHOT0883-32-10 10:00:00 Test Item Value Reference Range Interpretation Comments Basophils # (test code 0.0 See_Comment [Aut omated message] The = Basophils #) system which generated this result tra nsmitted reference range : <=0.2. The reference r katie was not used to int erpret this result as normal/abnormal . [facility] HospitalPltsfnxWJZGWHFJRZ9769-04-66 10:00:00 Test Item Value Reference Range Interpretation Comments Eosinophils # (test code 0.3 See_Comment [A utomated message] The = Eosinophils #) system whic h generated this result tra nsmitted reference range : <=0.5. The reference r katie was not used to int erpret this result as normal/abnormal . [facility] HospitalGhbbftxEPCGMVLICM2219-90-36 10:00:00 Test Item Value Reference Range Interpretation Comments Lymphocytes # (test code = Lymphocytes 1.9 1.0-5.5 #) [facility] HospitalXyuasiqTIEIOUMWVI3039-04-43 10:00:00 Test Item Value Reference Range Interpretation Comments Monocytes # (test code 0.6 See_Comment [Aut omated message] The = Monocytes #) system which generated this result tra nsmitted reference range : <=0.8. The reference r katie was not used to int erpret this result as normal/abnormal . [facility]2014-08-17 10:00:00 Test Item Value Reference Range Interpretation Comments eGFR (test code = eGFR) 69 [facility]2014-08-17 10:00:00 Test Item Value Reference Range Interpretation Comments Sodium Lvl (test code = Sodium Lvl) 137 135-145 [facility]2014-08-17 10:00:00 Test Item Value Reference Range Interpretation Comments Potassium Lvl (test code = Potassium 4.2 3.5-5.1 Lvl) [facility]2014-08-17 10:00:00 Test Item Value Reference Range Interpretation Comments Chloride Lvl (test code = Chloride Lvl) 105 95-109 [facility]2014-08-17 10:00:00 Test Item Value Reference Range Interpretation Comments BUN (test code = BUN) 9 7-22 [facility]2014-08-17 10:00:00 Test Item Value Reference Range Interpretation Comments Creatinine Lvl (test code = Creatinine 0.9 0.5-1.4 Lvl) [facility]2014-08-17 10:00:00 Test Item Value Reference Range Interpretation Comments Glucose Lvl (test code = Glucose Lvl) 144 70-99 [facility]2014-08-17 10:00:00 Test Item Value Reference Range Interpretation Comments CO2 (test code = CO2) 25 24-32 [facility]2014-08-17 10:00:00 Test Item Value Reference Range Interpretation Comments Calcium Lvl (test code = Calcium Lvl) 8.4 8.5-10.5 [facility]2014-08-17 10:00:00 Test Item Value Reference Range Interpretation Comments AGAP (test code = AGAP) 11.2 10.0-20.0 [facility]2014-08-17 10:00:00 Test Item Value Reference Range Interpretation Comments Magnesium Lvl (test code = Magnesium 1.6 1.8-2.4 Lvl) [facility] HospitalIncrvilZRKYMWGBJY0442-48-58 10:00:00 Test Item Value Reference Range Interpretation Comments INR (test code = INR) 0.99 0.85-1.17 [facility] HospitalYrnitifRZVCRGRXAF4741-45-26 10:00:00 Test Item Value Reference Range Interpretation Comments PT (test code = PT) 13.0 s 12.0-14.7 [facility] HospitalSiqkzlkWZJGMRQMSE2508-95-14 10:00:00 Test Item Value Reference Range Interpretation Comments PTT (test code = PTT) 32.2 s 22.9-35.8 [facility] HospitalXlosplhIBZBVABDNZ8911-58-88 10:00:00 Test Item Value Reference Range Interpretation Comments Platelet (test code = Platelet) 156 133-450 [facility] HospitalWslaarbNVAWGJFOWS6615-54-94 10:00:00 Test Item Value Reference Range Interpretation Comments RDW (test code = RDW) 18.5 11.5-14.5 [facility] HospitalHzrsafjVUCPYOKJHU1778-28-36 10:00:00 Test Item Value Reference Range Interpretation Comments MPV (test code = MPV) 7.4 7.4-10.4 [facility] HospitalYbciyuvOUHXQKAEDI4738-40-85 10:00:00 Test Item Value Reference Range Interpretation Comments WBC (test code = WBC) 8.5 3.7-10.4 [facility] HospitalNnsrribMXHWBGNSFB0364-27-36 10:00:00 Test Item Value Reference Range Interpretation Comments RBC (test code = RBC) 3.09 4.20-5.40 [facility] HospitalVyqrwptRFAWWQVHCW4174-99-96 10:00:00 Test Item Value Reference Range Interpretation Comments Hct (test code = Hct) 28.3 36.0-48.0 [facility] HospitalHlbyhadVSNQABODJF2728-48-60 10:00:00 Test Item Value Reference Range Interpretation Comments MCH (test code = MCH) 31.4 pg 27.0-31.0 [facility] HospitalRcvbcinINVWSKRKUS3350-17-00 10:00:00 Test Item Value Reference Range Interpretation Comments MCV (test code = MCV) 91.6 81.0-99.0 [facility] HospitalJhpableWYSFKIKTTV9940-61-69 10:00:00 Test Item Value Reference Range Interpretation Comments MCHC (test code = MCHC) 34.3 32.0-36.0 [facility] HospitalYogbmvyNLHRMRYEAT1461-62-46 10:00:00 Test Item Value Reference Range Interpretation Comments Hgb (test code = Hgb) 9.7 12.0-16.0 [facility] HospitalTkphkzkATPGJMYMKV1183-58-23 10:00:00 Test Item Value Reference Range Interpretation Comments Lymphocytes (test code = Lymphocytes) 22.6 20.0-40.0 [facility] HospitalHwglyvnARASEBMPAX6787-53-01 10:00:00 Test Item Value Reference Range Interpretation Comments Segs (test code = Segs) 66.9 45.0-75.0 [facility] HospitalXuzsjzgJLPHGAYXUL5686-83-78 10:00:00 Test Item Value Reference Range Interpretation Comments Monocytes (test code = Monocytes) 7.0 2.0-12.0 [facility] HospitalMaxtjcxSBNAFWMIDJ6581-28-13 10:00:00 Test Item Value Reference Range Interpretation Comments Basophils (test code = 0.5 See_Comment [Aut omated message] The Basophils) system which ge nerated this result tra nsmitted reference range : <=1.0. The reference r katie was not used to int erpret this result as normal/abnormal . [facility] HospitalAcoigdcZAQMKXRAPY7480-78-64 10:00:00 Test Item Value Reference Range Interpretation Comments Eosinophils (test code = 3.0 See_Comment [A utomated message] The Eosinophils) system which ge nerated this result tra nsmitted reference range : <=4.0. The reference r katie was not used to int erpret this result as normal/abnormal . [facility] HospitalRoqdpljFAEZMOKWXO2111-74-55 10:00:00 Test Item Value Reference Range Interpretation Comments Segs-Bands # (test code = Segs-Bands #) 5.7 1.5-8.1 [facility] HospitalQpqmgfjOMFYLJJDGV5327-97-13 10:00:00 Test Item Value Reference Range Interpretation Comments Basophils # (test code 0.0 See_Comment [Aut omated message] The = Basophils #) system which generated this result tra nsmitted reference range : <=0.2. The reference r katie was not used to int erpret this result as normal/abnormal . [facility] HospitalHdyayilHWZQNQOZOC1278-18-31 10:00:00 Test Item Value Reference Range Interpretation Comments Eosinophils # (test code 0.3 See_Comment [A utomated message] The = Eosinophils #) system whic h generated this result tra nsmitted reference range : <=0.5. The reference r katie was not used to int erpret this result as normal/abnormal . [facility] HospitalUxupwfuHVCVKZBUJI2199-69-38 10:00:00 Test Item Value Reference Range Interpretation Comments Lymphocytes # (test code = Lymphocytes 1.9 1.0-5.5 #) [facility] HospitalVhetbzzSGWOZSTFIP9460-14-83 10:00:00 Test Item Value Reference Range Interpretation Comments Monocytes # (test code 0.6 See_Comment [Aut omated message] The = Monocytes #) system which generated this result tra nsmitted reference range : <=0.8. The reference r katie was not used to int erpret this result as normal/abnormal . [facility]2014-08-17 10:00:00 Test Item Value Reference Range Interpretation Comments eGFR (test code = eGFR) 69 [facility]2014-08-17 10:00:00 Test Item Value Reference Range Interpretation Comments Sodium Lvl (test code = Sodium Lvl) 137 135-145 [facility]2014-08-17 10:00:00 Test Item Value Reference Range Interpretation Comments Potassium Lvl (test code = Potassium 4.2 3.5-5.1 Lvl) [facility]2014-08-17 10:00:00 Test Item Value Reference Range Interpretation Comments Chloride Lvl (test code = Chloride Lvl) 105 95-109 [facility]2014-08-17 10:00:00 Test Item Value Reference Range Interpretation Comments BUN (test code = BUN) 9 7-22 [place] 848654-08-17 10:00:00 Test Item Value Reference Range Interpretation Comments Creatinine Lvl (test code = Creatinine 0.9 0.5-1.4 Lvl) [facility]2014-08-17 10:00:00 Test Item Value Reference Range Interpretation Comments Glucose Lvl (test code = Glucose Lvl) 144 70-99 [facility]2014-08-17 10:00:00 Test Item Value Reference Range Interpretation Comments CO2 (test code = CO2) 25 24-32 [facility]2014-08-17 10:00:00 Test Item Value Reference Range Interpretation Comments Calcium Lvl (test code = Calcium Lvl) 8.4 8.5-10.5 [facility]2014-08-17 10:00:00 Test Item Value Reference Range Interpretation Comments AGAP (test code = AGAP) 11.2 10.0-20.0 [facility]2014-08-17 10:00:00 Test Item Value Reference Range Interpretation Comments Magnesium Lvl (test code = Magnesium 1.6 1.8-2.4 Lvl) [facility] HospitalDobxmciTOXLVPTQKQ7335-09-15 10:00:00 Test Item Value Reference Range Interpretation Comments INR (test code = INR) 0.99 0.85-1.17 [facility] HospitalEpvhaxiIXQMJEOTTD4109-59-07 10:00:00 Test Item Value Reference Range Interpretation Comments PT (test code = PT) 13.0 s 12.0-14.7 [facility] HospitalTmhdbybPIXMSDERGI2636-48-10 10:00:00 Test Item Value Reference Range Interpretation Comments PTT (test code = PTT) 32.2 s 22.9-35.8 [place] 287664-08-17 10:00:00 Test Item Value Reference Range Interpretation Comments Platelet (test code = Platelet) 156 133-450 [facility] HospitalIwkaxtlHCZWGQXQDF9534-97-14 10:00:00 Test Item Value Reference Range Interpretation Comments RDW (test code = RDW) 18.5 11.5-14.5 [facility] HospitalHwrzgnxCXDJPLQQLW7038-02-36 10:00:00 Test Item Value Reference Range Interpretation Comments MPV (test code = MPV) 7.4 7.4-10.4 [facility] HospitalGawindnMYDJZIXQJB1241-17-13 10:00:00 Test Item Value Reference Range Interpretation Comments WBC (test code = WBC) 8.5 3.7-10.4 [facility] HospitalZlqwsizXJSMZTVTNW3166-16-97 10:00:00 Test Item Value Reference Range Interpretation Comments RBC (test code = RBC) 3.09 4.20-5.40 [facility] HospitalBjedixbAWKRGNWTGE9127-45-20 10:00:00 Test Item Value Reference Range Interpretation Comments Hct (test code = Hct) 28.3 36.0-48.0 [facility] HospitalKhfpgprKJIULTUUGE9631-77-34 10:00:00 Test Item Value Reference Range Interpretation Comments MCH (test code = MCH) 31.4 pg 27.0-31.0 [facility] HospitalWkjirozKMQFKWENJQ4799-00-22 10:00:00 Test Item Value Reference Range Interpretation Comments MCV (test code = MCV) 91.6 81.0-99.0 [facility] HospitalMkfaheeKDZBOCGHMV7203-17-37 10:00:00 Test Item Value Reference Range Interpretation Comments MCHC (test code = MCHC) 34.3 32.0-36.0 [facility] HospitalIbmkjlkAMYELBFBGV1654-11-23 10:00:00 Test Item Value Reference Range Interpretation Comments Hgb (test code = Hgb) 9.7 12.0-16.0 [facility] HospitalUrofvbqVXDSHQVDST8948-48-40 10:00:00 Test Item Value Reference Range Interpretation Comments Lymphocytes (test code = Lymphocytes) 22.6 20.0-40.0 [facility] HospitalTkcvjmdNEXUUYBBQU1729-97-29 10:00:00 Test Item Value Reference Range Interpretation Comments Segs (test code = Segs) 66.9 45.0-75.0 [facility] HospitalMmleveiTKNZVKFHCR3767-23-38 10:00:00 Test Item Value Reference Range Interpretation Comments Monocytes (test code = Monocytes) 7.0 2.0-12.0 [facility] HospitalZyveaidNDFYCYIWSB1725-68-63 10:00:00 Test Item Value Reference Range Interpretation Comments Basophils (test code = 0.5 See_Comment [Aut omated message] The Basophils) system which ge nerated this result tra nsmitted reference range : <=1.0. The reference r katie was not used to int erpret this result as normal/abnormal . [facility] HospitalSyahkvpRSYJPWRIZI8142-02-20 10:00:00 Test Item Value Reference Range Interpretation Comments Eosinophils (test code = 3.0 See_Comment [A utomated message] The Eosinophils) system which ge nerated this result tra nsmitted reference range : <=4.0. The reference r katie was not used to int erpret this result as normal/abnormal . [facility] HospitalEqbzioxAJCPGVDYQB1105-92-87 10:00:00 Test Item Value Reference Range Interpretation Comments Segs-Bands # (test code = Segs-Bands #) 5.7 1.5-8.1 [facility] HospitalLtgskvsAFPGXHYGDU7027-57-55 10:00:00 Test Item Value Reference Range Interpretation Comments Basophils # (test code 0.0 See_Comment [Aut omated message] The = Basophils #) system which generated this result tra nsmitted reference range : <=0.2. The reference r katie was not used to int erpret this result as normal/abnormal . [facility] HospitalPtrwsezNMIEZGJXWX7187-37-42 10:00:00 Test Item Value Reference Range Interpretation Comments Eosinophils # (test code 0.3 See_Comment [A utomated message] The = Eosinophils #) system [facility] generated this result tra nsmitted reference range : <=0.5. The reference r katie was not used to int erpret this result as normal/abnormal . [facility] HospitalTiooylpHVUWSIUZQE9877-22-05 10:00:00 Test Item Value Reference Range Interpretation Comments Lymphocytes # (test code = Lymphocytes 1.9 1.0-5.5 #) [facility] HospitalTlhxzvoRWSQGDYJLY2826-76-60 10:00:00 Test Item Value Reference Range Interpretation Comments Monocytes # (test code 0.6 See_Comment [Aut omated message] The = Monocytes #) system which generated this result tra nsmitted reference range : <=0.8. The reference r katie was not used to int erpret this result as normal/abnormal . [facility]2014-08-17 10:00:00 Test Item Value Reference Range Interpretation Comments eGFR (test code = eGFR) 69 [facility]2014-08-17 10:00:00 Test Item Value Reference Range Interpretation Comments Sodium Lvl (test code = Sodium Lvl) 137 135-145 [facility]2014-08-17 10:00:00 Test Item Value Reference Range Interpretation Comments Potassium Lvl (test code = Potassium 4.2 3.5-5.1 Lvl) [facility]2014-08-17 10:00:00 Test Item Value Reference Range Interpretation Comments Chloride Lvl (test code = Chloride Lvl) 105 95-109 [facility]2014-08-17 10:00:00 Test Item Value Reference Range Interpretation Comments BUN (test code = BUN) 9 7-22 [facility]2014-08-17 10:00:00 Test Item Value Reference Range Interpretation Comments Creatinine Lvl (test code = Creatinine 0.9 0.5-1.4 Lvl) [facility]2014-08-17 10:00:00 Test Item Value Reference Range Interpretation Comments Glucose Lvl (test code = Glucose Lvl) 144 70-99 [facility]2014-08-17 10:00:00 Test Item Value Reference Range Interpretation Comments CO2 (test code = CO2) 25 24-32 [facility]2014-08-17 10:00:00 Test Item Value Reference Range Interpretation Comments Calcium Lvl (test code = Calcium Lvl) 8.4 8.5-10.5 [facility]2014-08-17 10:00:00 Test Item Value Reference Range Interpretation Comments AGAP (test code = AGAP) 11.2 10.0-20.0 [facility]2014-08-17 10:00:00 Test Item Value Reference Range Interpretation Comments Magnesium Lvl (test code = Magnesium 1.6 1.8-2.4 Lvl) [facility] HospitalLfophnwTEPOIONADJ1295-37-65 10:00:00 Test Item Value Reference Range Interpretation Comments INR (test code = INR) 0.99 0.85-1.17 [facility] HospitalJdzcaugZXZRRLRVUZ2015-73-15 10:00:00 Test Item Value Reference Range Interpretation Comments PT (test code = PT) 13.0 s 12.0-14.7 [facility] HospitalGsojplnYXIBZSTZVH8414-08-68 10:00:00 Test Item Value Reference Range Interpretation Comments PTT (test code = PTT) 32.2 s 22.9-35.8 [facility] HospitalXbiulhoZYKRIAQWBJ5782-31-57 10:00:00 Test Item Value Reference Range Interpretation Comments Platelet (test code = Platelet) 156 133-450 [facility] HospitalIltfapfCZUYRJJALW3856-97-34 10:00:00 Test Item Value Reference Range Interpretation Comments RDW (test code = RDW) 18.5 11.5-14.5 [facility] HospitalHftfxiqGLIXJGKCYA9494-47-40 10:00:00 Test Item Value Reference Range Interpretation Comments MPV (test code = MPV) 7.4 7.4-10.4 [facility] HospitalVuyemctYZCBQVQHAF1928-16-78 10:00:00 Test Item Value Reference Range Interpretation Comments WBC (test code = WBC) 8.5 3.7-10.4 [facility] HospitalAijuwxlSTDMWOAXOZ9203-10-57 10:00:00 Test Item Value Reference Range Interpretation Comments RBC (test code = RBC) 3.09 4.20-5.40 [facility] HospitalDltvgqcYOHOYSQDKV0314-72-80 10:00:00 Test Item Value Reference Range Interpretation Comments Hct (test code = Hct) 28.3 36.0-48.0 [facility] HospitalJzrrxkuYWWJECLXKQ0273-88-77 10:00:00 Test Item Value Reference Range Interpretation Comments MCH (test code = MCH) 31.4 pg 27.0-31.0 [facility] HospitalLadsqbdUDUXSTHWER2301-40-56 10:00:00 Test Item Value Reference Range Interpretation Comments MCV (test code = MCV) 91.6 81.0-99.0 [facility] HospitalLzhldowKGEMPOFRHN0375-98-02 10:00:00 Test Item Value Reference Range Interpretation Comments MCHC (test code = MCHC) 34.3 32.0-36.0 [facility] HospitalWnbxzacISFTUPPSZE5241-15-22 10:00:00 Test Item Value Reference Range Interpretation Comments Hgb (test code = Hgb) 9.7 12.0-16.0 [facility] HospitalLdtdptwHTLEUSLFWE8274-85-89 10:00:00 Test Item Value Reference Range Interpretation Comments Lymphocytes (test code = Lymphocytes) 22.6 20.0-40.0 [facility] HospitalFqevoagAJZEIACEYX9653-49-42 10:00:00 Test Item Value Reference Range Interpretation Comments Segs (test code = Segs) 66.9 45.0-75.0 [facility] HospitalCwnkfraZPCADBGGKD3263-70-48 10:00:00 Test Item Value Reference Range Interpretation Comments Monocytes (test code = Monocytes) 7.0 2.0-12.0 [facility] HospitalEqgxlewELUERSEITK8455-87-15 10:00:00 Test Item Value Reference Range Interpretation Comments Basophils (test code = 0.5 See_Comment [Aut omated message] The Basophils) system which ge nerated this result tra nsmitted reference range : <=1.0. The reference r katie was not used to int erpret this result as normal/abnormal . [facility] HospitalPzybczpYWBLHIIKZW9657-54-12 10:00:00 Test Item Value Reference Range Interpretation Comments Eosinophils (test code = 3.0 See_Comment [A utomated message] The Eosinophils) system which ge nerated this result tra nsmitted reference range : <=4.0. The reference r katie was not used to int erpret this result as normal/abnormal . [facility] HospitalVbmvknsUYYZBYDJMV4936-70-72 10:00:00 Test Item Value Reference Range Interpretation Comments Segs-Bands # (test code = Segs-Bands #) 5.7 1.5-8.1 [facility] HospitalIbnorpzHISRCWCIRE8145-71-73 10:00:00 Test Item Value Reference Range Interpretation Comments Basophils # (test code 0.0 See_Comment [Aut omated message] The = Basophils #) system which generated this result tra nsmitted reference range : <=0.2. The reference r katie was not used to int erpret this result as normal/abnormal . [facility] HospitalSesixdsAPVFSWUFDX0992-37-08 10:00:00 Test Item Value Reference Range Interpretation Comments Eosinophils # (test code 0.3 See_Comment [A utomated message] The = Eosinophils #) system whic h generated this result tra nsmitted reference range : <=0.5. The reference r katie was not used to int erpret this result as normal/abnormal . [facility] HospitalIqcgsdkFVXQDMQJZU6841-60-62 10:00:00 Test Item Value Reference Range Interpretation Comments Lymphocytes # (test code = Lymphocytes 1.9 1.0-5.5 #) [facility]YxoecphJRYFXYRRCT8002-02-38 10:00:00 Test Item Value Reference Range Interpretation Comments Monocytes # (test code 0.6 See_Comment [Aut omated message] The = Monocytes #) system which generated this result tra nsmitted reference range : <=0.8. The reference r katie was not used to int erpret this result as normal/abnormal . [facility]2014-08-17 10:00:00 Test Item Value Reference Range Interpretation Comments eGFR (test code = eGFR) 69 [facility]2014-08-17 10:00:00 Test Item Value Reference Range Interpretation Comments Sodium Lvl (test code = Sodium Lvl) 137 135-145 [facility]2014-08-17 10:00:00 Test Item Value Reference Range Interpretation Comments Potassium Lvl (test code = Potassium 4.2 3.5-5.1 Lvl) [facility]2014-08-17 10:00:00 Test Item Value Reference Range Interpretation Comments Chloride Lvl (test code = Chloride Lvl) 105 95-109 [facility]2014-08-17 10:00:00 Test Item Value Reference Range Interpretation Comments BUN (test code = BUN) 9 7-22 [facility]2014-08-17 10:00:00 Test Item Value Reference Range Interpretation Comments Creatinine Lvl (test code = Creatinine 0.9 0.5-1.4 Lvl) [facility]2014-08-17 10:00:00 Test Item Value Reference Range Interpretation Comments Glucose Lvl (test code = Glucose Lvl) 144 70-99 [facility]2014-08-17 10:00:00 Test Item Value Reference Range Interpretation Comments CO2 (test code = CO2) 25 24-32 [facility]2014-08-17 10:00:00 Test Item Value Reference Range Interpretation Comments Calcium Lvl (test code = Calcium Lvl) 8.4 8.5-10.5 [facility]2014-08-17 10:00:00 Test Item Value Reference Range Interpretation Comments AGAP (test code = AGAP) 11.2 10.0-20.0 [facility]2014-08-17 10:00:00 Test Item Value Reference Range Interpretation Comments Magnesium Lvl (test code = Magnesium 1.6 1.8-2.4 Lvl) [facility]DqtagvzHUBFNKWMHH9209-61-44 10:00:00 Test Item Value Reference Range Interpretation Comments INR (test code = INR) 0.99 0.85-1.17 [facility] HospitalLwdgqzyGPOJIAQTOO8502-22-77 10:00:00 Test Item Value Reference Range Interpretation Comments PT (test code = PT) 13.0 s 12.0-14.7 [facility] HospitalBurxgnyDUJBUNLFWG3284-80-64 10:00:00 Test Item Value Reference Range Interpretation Comments PTT (test code = PTT) 32.2 s 22.9-35.8 [facility] HospitalKxpvwfeIKIOQPCBON2830-79-78 10:00:00 Test Item Value Reference Range Interpretation Comments Platelet (test code = Platelet) 156 133-450 [facility] HospitalDskwqceNDLPHAURZF5306-73-07 10:00:00 Test Item Value Reference Range Interpretation Comments RDW (test code = RDW) 18.5 11.5-14.5 [facility] HospitalSedexoqQASUUOMIFV1828-18-18 10:00:00 Test Item Value Reference Range Interpretation Comments MPV (test code = MPV) 7.4 7.4-10.4 [facility] HospitalSkozjulOHBITRQOMY3866-54-65 10:00:00 Test Item Value Reference Range Interpretation Comments WBC (test code = WBC) 8.5 3.7-10.4 [facility] HospitalYmmucawYUDAMIONRD2774-94-51 10:00:00 Test Item Value Reference Range Interpretation Comments RBC (test code = RBC) 3.09 4.20-5.40 [facility] HospitalDmffxjlFEIXZCKZUB2520-75-65 10:00:00 Test Item Value Reference Range Interpretation Comments Hct (test code = Hct) 28.3 36.0-48.0 [facility] HospitalIxwwaqsZGZEBHGHTU3732-45-02 10:00:00 Test Item Value Reference Range Interpretation Comments MCH (test code = MCH) 31.4 pg 27.0-31.0 [facility] HospitalFmltuaeKRTTIHTDBK3403-58-39 10:00:00 Test Item Value Reference Range Interpretation Comments MCV (test code = MCV) 91.6 81.0-99.0 [facility] HospitalDlprmhvPIUNJKZCQX8297-06-18 10:00:00 Test Item Value Reference Range Interpretation Comments MCHC (test code = MCHC) 34.3 32.0-36.0 [facility] HospitalEvedzufVURUYGCIMQ4253-76-14 10:00:00 Test Item Value Reference Range Interpretation Comments Hgb (test code = Hgb) 9.7 12.0-16.0 [facility] HospitalRoiepxzQAWQMIVUZF5074-33-97 10:00:00 Test Item Value Reference Range Interpretation Comments Lymphocytes (test code = Lymphocytes) 22.6 20.0-40.0 [facility] HospitalGtxurlwEFBBHYRPZY8275-56-77 10:00:00 Test Item Value Reference Range Interpretation Comments Segs (test code = Segs) 66.9 45.0-75.0 [facility] HospitalRsltwanNVGQLOQQWC5891-36-03 10:00:00 Test Item Value Reference Range Interpretation Comments Monocytes (test code = Monocytes) 7.0 2.0-12.0 [facility] HospitalAxkwbqeRAPKQRACGK6053-09-98 10:00:00 Test Item Value Reference Range Interpretation Comments Basophils (test code = 0.5 See_Comment [Aut omated message] The Basophils) system which ge nerated this result tra nsmitted reference range : <=1.0. The reference r katie was not used to int erpret this result as normal/abnormal . [facility] HospitalZrviioyYZUMOCKMYF9265-67-88 10:00:00 Test Item Value Reference Range Interpretation Comments Eosinophils (test code = 3.0 See_Comment [A utomated message] The Eosinophils) system which ge nerated this result tra nsmitted reference range : <=4.0. The reference r katie was not used to int erpret this result as normal/abnormal . [facility] HospitalQiqcsckRTCEKLJVPX3121-76-85 10:00:00 Test Item Value Reference Range Interpretation Comments Segs-Bands # (test code = Segs-Bands #) 5.7 1.5-8.1 [facility] HospitalYbtidliAPCWGBYHVQ3554-11-04 10:00:00 Test Item Value Reference Range Interpretation Comments Basophils # (test code 0.0 See_Comment [Aut omated message] The = Basophils #) system which generated this result tra nsmitted reference range : <=0.2. The reference r katie was not used to int erpret this result as normal/abnormal . [facility] HospitalLgznpjzKMQOPRZZQM4188-63-77 10:00:00 Test Item Value Reference Range Interpretation Comments Eosinophils # (test code 0.3 See_Comment [A utomated message] The = Eosinophils #) system whic h generated this result tra nsmitted reference range : <=0.5. The reference r katie was not used to int erpret this result as normal/abnormal . [facility] HospitalMqxqafsDOJMSRGAYW1457-82-04 10:00:00 Test Item Value Reference Range Interpretation Comments Lymphocytes # (test code = Lymphocytes 1.9 1.0-5.5 #) [facility] HospitalDqyrbnkACEHDOXTPD0982-46-82 10:00:00 Test Item Value Reference Range Interpretation Comments Monocytes # (test code 0.6 See_Comment [Aut omated message] The = Monocytes #) system which generated this result tra nsmitted reference range : <=0.8. The reference r katie was not used to int erpret this result as normal/abnormal . [facility] HospitalJurndedFRYSWSWPQH9051-90-11 15:10:33 Test Item Value Reference Range Interpretation Comments Pos CO Value (test code = Pos CO 0.443 1 Value) [facility] HospitalWhckwnxDEZPAHFZME9033-08-49 15:10:33 Test Item Value Reference Range Interpretation Comments Pat Od Value (test code = Pat Od 0.221 1 Value) [facility] HospitalTyqhapsCMRIRIDAUV9591-09-30 15:10:33 Test Item Value Reference Range Interpretation Comments Heparin Ab(NERI) Negative (02/09/14 10:10 (test code = Heparin AM) Ab(NERI)) [facility] HospitalClvaillXWWIHWNTYD0994-04-72 15:10:33 Test Item Value Reference Range Interpretation Comments Pos CO Value (test code = Pos CO 0.443 1 Value) [facility] HospitalDtsyrwyCMBFNUWWJH1633-97-59 15:10:33 Test Item Value Reference Range Interpretation Comments Pat Od Value (test code = Pat Od 0.221 1 Value) [facility] HospitalTfrzqppZPMNHKHHCX2634-49-09 15:10:33 Test Item Value Reference Range Interpretation Comments Heparin Ab(NERI) Negative (02/09/14 10:10 (test code = Heparin AM) Ab(NERI)) [facility] HospitalUusfevrWTUJQHFWQS8338-95-67 15:10:33 Test Item Value Reference Range Interpretation Comments Pos CO Value (test code = Pos CO 0.443 1 Value) [facility] HospitalJnvfnglMLMDZOXWQB4583-78-25 15:10:33 Test Item Value Reference Range Interpretation Comments Pat Od Value (test code = Pat Od 0.221 1 Value) [facility] HospitalMvznqnfFEEUBGGEMY6350-36-98 15:10:33 Test Item Value Reference Range Interpretation Comments Heparin Ab(NERI) Negative (02/09/14 10:10 (test code = Heparin AM) Ab(NERI)) [facility] HospitalOyqicipVTEYYGECPY1728-11-25 15:10:33 Test Item Value Reference Range Interpretation Comments Pos CO Value (test code = Pos CO 0.443 1 Value) [facility] HospitalMfljgdcZBXJYXZVPW5441-75-82 15:10:33 Test Item Value Reference Range Interpretation Comments Pat Od Value (test code = Pat Od 0.221 1 Value) [facility] HospitalXxdhykmSGRGRSPCGE7015-59-61 15:10:33 Test Item Value Reference Range Interpretation Comments Heparin Ab(NERI) Negative (02/09/14 10:10 (test code = Heparin AM) Ab(NERI)) [facility] HospitalMxabkpsECLRIQREQM3847-01-77 15:10:33 Test Item Value Reference Range Interpretation Comments Pos CO Value (test code = Pos CO 0.443 1 Value) [facility] HospitalVblaaosRDIXRFAHMZ1467-33-17 15:10:33 Test Item Value Reference Range Interpretation Comments Pat Od Value (test code = Pat Od 0.221 1 Value) [facility] HospitalQrmojuhXYCYBMEZJU1104-48-13 15:10:33 Test Item Value Reference Range Interpretation Comments Heparin Ab(NERI) Negative (02/09/14 10:10 (test code = Heparin AM) Ab(NERI)) [facility] HospitalSemrjpeLUZIAYPTTT5556-71-20 15:10:33 Test Item Value Reference Range Interpretation Comments Pos CO Value (test code = Pos CO 0.443 1 Value) [facility] HospitalSdralosDHXPMTCJWV6312-07-20 15:10:33 Test Item Value Reference Range Interpretation Comments Pat Od Value (test code = Pat Od 0.221 1 Value) [facility] HospitalHhxjxegTEBCTNSGFC3449-49-42 15:10:33 Test Item Value Reference Range Interpretation Comments Heparin Ab(NERI) Negative (02/09/14 10:10 (test code = Heparin AM) Ab(NERI)) [facility]2014-08-15 23:40:50 Test Item Value Reference Range Interpretation Comments % Satur Fe (test code = % Satur Fe) 26 12-57 [facility]2014-08-15 23:40:50 Test Item Value Reference Range Interpretation Comments UIBC (test code = UIBC) 140 110-370 [facility]2014-08-15 23:40:50 Test Item Value Reference Range Interpretation Comments TIBC (test code = TIBC) 188 228-428 [facility] FUXUG4977-88-75 23:40:50 Test Item Value Reference Range Interpretation Comments Iron (test code = Iron) 48 30-160 [facility] FYRIY3433-15-84 23:40:50 Test Item Value Reference Range Interpretation Comments % Satur Fe (test code = % Satur Fe) 26 [facility]2014-08-15 23:40:50 Test Item Value Reference Range Interpretation Comments UIBC (test code = UIBC) 140 110-370 [facility] LSQYL5777-77-03 23:40:50 Test Item Value Reference Range Interpretation Comments TIBC (test code = TIBC) 188 228-428 [facility] LTNXQ1117-54-86 23:40:50 Test Item Value Reference Range Interpretation Comments Iron (test code = Iron) 48 30-160 [facility] QQDMP8681-75-97 23:40:50 Test Item Value Reference Range Interpretation Comments % Satur Fe (test code = % Satur Fe) 26 [facility] WMQMT7831-53-52 23:40:50 Test Item Value Reference Range Interpretation Comments UIBC (test code = UIBC) 140 110-370 [facility] EKGVC0441-11-17 23:40:50 Test Item Value Reference Range Interpretation Comments TIBC (test code = TIBC) 188 228-428 [facility] CGUVB9937-44-48 23:40:50 Test Item Value Reference Range Interpretation Comments Iron (test code = Iron) 48 30-160 [facility] QMJBS4207-31-50 23:40:50 Test Item Value Reference Range Interpretation Comments % Satur Fe (test code = % Satur Fe) 26 [facility] NWPIJ4749-17-52 23:40:50 Test Item Value Reference Range Interpretation Comments UIBC (test code = UIBC) 140 110-370 [facility] CBZOF8542-67-29 23:40:50 Test Item Value Reference Range Interpretation Comments TIBC (test code = TIBC) 188 228-428 [facility]2014-08-15 23:40:50 Test Item Value Reference Range Interpretation Comments Iron (test code = Iron) 48 30-160 [facility]2014-08-15 23:40:50 Test Item Value Reference Range Interpretation Comments % Satur Fe (test code = % Satur Fe) 26 57 [facility]2014-08-15 23:40:50 Test Item Value Reference Range Interpretation Comments UIBC (test code = UIBC) 140 110-370 [facility]2014-08-15 23:40:50 Test Item Value Reference Range Interpretation Comments TIBC (test code = TIBC) 188 228-428 [facility]2014-08-15 23:40:50 Test Item Value Reference Range Interpretation Comments Iron (test code = Iron) 48 30-160 [facility] LTZGZ5802-62-41 23:40:50 Test Item Value Reference Range Interpretation Comments % Satur Fe (test code = % Satur Fe) 26 [facility]2014-08-15 23:40:50 Test Item Value Reference Range Interpretation Comments UIBC (test code = UIBC) 140 110-370 [facility]2014-08-15 23:40:50 Test Item Value Reference Range Interpretation Comments TIBC (test code = TIBC) 188 228-428 [facility]2014-08-15 23:40:50 Test Item Value Reference Range Interpretation Comments Iron (test code = Iron) 48 30-160 [facility] HospitalMrdvywqGUOVVDANAG1693-10-98 10:00:00 Test Item Value Reference Range Interpretation Comments Basophils # (test code 0.0 See_Comment [Aut omated message] The = Basophils #) system which generated this result tra nsmitted reference range : <=0.2. The reference r katie was not used to int erpret this result as normal/abnormal . [facility] HospitalDfvuekiNWFYTSTKML5482-68-65 10:00:00 Test Item Value Reference Range Interpretation Comments Segs (test code = Segs) 63.5 45.0-75.0 [facility] HospitalWoqqzsdBPMBFUSAOQ9398-18-17 10:00:00 Test Item Value Reference Range Interpretation Comments Monocytes (test code = Monocytes) 8.5 2.0-12.0 [facility] HospitalRlketqbSVGOKGEEKP1961-81-93 10:00:00 Test Item Value Reference Range Interpretation Comments Lymphocytes (test code = Lymphocytes) 25.9 20.0-40.0 [facility] HospitalQettgzeSTQSLHGDOS1124-09-49 10:00:00 Test Item Value Reference Range Interpretation Comments Segs-Bands # (test code = Segs-Bands #) 5.3 1.5-8.1 [facility] HospitalXhnqkecKAKCQZNCHV3643-73-92 10:00:00 Test Item Value Reference Range Interpretation Comments Basophils (test code = 0.3 See_Comment [Aut omated message] The Basophils) system which ge nerated this result tra nsmitted reference range : <=1.0. The reference r katie was not used to int erpret this result as normal/abnormal . [facility] HospitalRztnnitZYKQMLQFIG0913-82-41 10:00:00 Test Item Value Reference Range Interpretation Comments Eosinophils (test code = 1.8 See_Comment [A utomated message] The Eosinophils) system which ge nerated this result tra nsmitted reference range : <=4.0. The reference r katie was not used to int erpret this result as normal/abnormal . [facility]zpfrhaUHQJBY6352-27-48 10:00:00 Test Item Value Reference Range Interpretation Comments CHD Risk (test code = CHD Risk) 3.00 3.90-5.80 [facility] SystemPzlesltBQYAGE0306-78-98 10:00:00 Test Item Value Reference Range Interpretation Comments VLDL (test code = VLDL) 24 [facility] SystemRdvkezbXQUPVC2901-99-54 10:00:00 Test Item Value Reference Range Interpretation Comments LDL (Calculated) (test code = LDL 28 (Calculated)) [facility] SystemOsffbhxMZLBRT9093-84-73 10:00:00 Test Item Value Reference Range Interpretation Comments HDL (test code = HDL) 26 [facility]JrgocrkMXOSCP4445-06-43 10:00:00 Test Item Value Reference Range Interpretation Comments Trig (test code = Trig) 122 [facility] SystemMqxrxzxETMCZP2371-95-47 10:00:00 Test Item Value Reference Range Interpretation Comments Chol (test code = Chol) 78 [facility] HospitalTHYROID ILQGJ6434-89-09 10:00:00 Test Item Value Reference Range Interpretation Comments T4 (test code = T4) 7.9 4.7-13.3 [facility] HospitalTHYROID NKGVU9675-52-61 10:00:00 Test Item Value Reference Range Interpretation Comments T3 Uptake (test code = T3 Uptake) 40 31-39 [facility] ZRJRA4680-00-06 10:00:00 Test Item Value Reference Range Interpretation Comments TSH (test code = TSH) 3.360 0.360-3.740 [facility] HospitalTHY[facility]ID RMJWZ4348-69-00 10:00:00 Test Item Value Reference Range Interpretation Comments FTI (test code = FTI) 3.2 [facility] HospitalCHEM PFAZS5332-45-55 10:00:00 Test Item Value Reference Range Interpretation Comments Phosphorus (test code = Phosphorus) 2.5 2.5-4.5 [facility] MEROY0054-10-03 10:00:00 Test Item Value Reference Range Interpretation Comments Magnesium Lvl (test code = Magnesium 1.9 1.8-2.4 Lvl) [facility] HospitalXivcjotHQVERPPFYOZV3865-25-14 10:00:00 Test Item Value Reference Range Interpretation Comments AGAP (test code = AGAP) 9.9 10.0-20.[address] [facility] [facility] [facility] HospitalXjbhqmoVXLNDOLNMBBI0077-56-56 10:00:00 Test Item Value Reference Range Interpretation Comments eGFR (test code = eGFR) [address] [facility] HospitalDfvoedeKBAXUHNPXHQK3219-61-38 10:00:00 Test Item Value Reference Range Interpretation Comments BUN (test code = BUN) 9 7-[address] [facility] HospitalJjtmcwoSVJDUSNNSDPK3181-75-21 10:00:00 Test Item Value Reference Range Interpretation Comments Glucose Lvl (test code = Glucose Lvl) 102 70-[address] [facility] HospitalYjevznqJFWMPNLXDGNG9133-66-39 10:00:00 Test Item Value Reference Range Interpretation Comments Potassium Lvl (test code = Potassium 3.9 3.5-5.1 Lvl) [facility] HospitalUivenrfHXVMABIYMRUD6539-77-94 10:00:00 Test Item Value Reference Range Interpretation Comments Creatinine Lvl (test code = Creatinine 1.0 0.5-1.4 Lvl) [facility] HospitalSbfnszuFLNJHBKMQAVU2253-24-77 10:00:00 Test Item Value Reference Range Interpretation Comments Sodium Lvl (test code = Sodium Lvl) 141 135-[address] [facility] HospitalXnmwdneNAMTXYYBIIEH4405-44-15 10:00:00 Test Item Value Reference Range Interpretation Comments Calcium Lvl (test code = Calcium Lvl) 8.1 8.5-10.[address] [facility] HospitalYmilezkNKGLXWEMEKBV4451-28-06 10:00:00 Test Item Value Reference Range Interpretation Comments CO2 (test code = CO2) 26 24-[address] [facility] HospitalRbbtrmtOYQKJIODCMTO3913-52-93 10:00:00 Test Item Value Reference Range Interpretation Comments Chloride Lvl (test code = Chloride Lvl) 109 95-109 [facility]KfsyfyqIFOZKBQDRWNDO8310-99-05 10:00:00 Test Item Value Reference Range Interpretation Comments FSH (test code = FSH) 33.9 [facility] HospitalQibkosmHIBZWQKFSS7786-38-51 10:00:00 Test Item Value Reference Range Interpretation Comments MPV (test code = MPV) 6.9 7.4-10.4 [facility] HospitalRgdiyonVZPQEMWISW5221-89-93 10:00:00 Test Item Value Reference Range Interpretation Comments Hct (test code = Hct) 28.4 36.0-48.0 [facility] HospitalSluemnwZDYTXRXXGS0181-70-15 10:00:00 Test Item Value Reference Range Interpretation Comments Hgb (test code = Hgb) 9.8 12.0-16.0 [facility] HospitalTiedwgyTRYCVVFETT6716-08-05 10:00:00 Test Item Value Reference Range Interpretation Comments RBC (test code = RBC) 3.15 4.20-5.40 [facility] HospitalPkcdqjpGCPTVSLITC5392-90-53 10:00:00 Test Item Value Reference Range Interpretation Comments WBC (test code = WBC) 8.4 3.7-10.4 [facility] HospitalCamfajwFZIRQKNZKA2335-05-73 10:00:00 Test Item Value Reference Range Interpretation Comments Platelet (test code = Platelet) 118 133-450 [facility] HospitalQfgnjyxLYDGMUZHRD6346-69-59 10:00:00 Test Item Value Reference Range Interpretation Comments RDW (test code = RDW) 19.9 11.5-14.5 [facility] HospitalPdlscbgMBQFVLDLVI7858-14-12 10:00:00 Test Item Value Reference Range Interpretation Comments MCHC (test code = MCHC) 34.6 32.0-36.0 [facility] HospitalKhsmujsXTAMLZKULD7688-45-15 10:00:00 Test Item Value Reference Range Interpretation Comments MCH (test code = MCH) 31.2 pg 27.0-31.0 [facility] HospitalUpmjpmzKUPGVUNWHZ7267-43-14 10:00:00 Test Item Value Reference Range Interpretation Comments MCV (test code = MCV) 90.2 81.0-99.0 [facility] HospitalWilfvbqPXDMDCCLCP9952-18-44 10:00:00 Test Item Value Reference Range Interpretation Comments Monocytes # (test code 0.7 See_Comment [Aut omated message] The = Monocytes #) system which generated this result tra nsmitted reference range : <=0.8. The reference r katie was not used to int erpret this result as normal/abnormal . [facility] HospitalLopyzwlPMZINRVIRZ8268-08-26 10:00:00 Test Item Value Reference Range Interpretation Comments Lymphocytes # (test code = Lymphocytes 2.2 1.0-5.5 #) [facility] HospitalZafsbxhGVMKIBIHOM2846-61-49 10:00:00 Test Item Value Reference Range Interpretation Comments Eosinophils # (test code 0.1 See_Comment [A utomated message] The = Eosinophils #) system whic h generated this result tra nsmitted reference range : <=0.5. The reference r katie was not used to int erpret this result as normal/abnormal . [facility] HospitalZliutisWMLCQQAUIE3682-28-44 10:00:00 Test Item Value Reference Range Interpretation Comments Basophils # (test code 0.0 See_Comment [Aut omated message] The = Basophils #) system which generated this result tra nsmitted reference range : <=0.2. The reference r katie was not used to int erpret this result as normal/abnormal . [facility] HospitalHuzlgpaFPLWPTUFOP1487-17-92 10:00:00 Test Item Value Reference Range Interpretation Comments Segs (test code = Segs) 63.5 45.0-75.0 [facility] HospitalIoacsgjVYANYCLDIX9417-09-76 10:00:00 Test Item Value Reference Range Interpretation Comments Monocytes (test code = Monocytes) 8.5 2.0-12.0 [facility] HospitalDzjkxeyHHHZGJFJVU8657-26-52 10:00:00 Test Item Value Reference Range Interpretation Comments Lymphocytes (test code = Lymphocytes) 25.9 20.0-40.0 [facility] HospitalFbsruopSBCKEMSULL5393-59-39 10:00:00 Test Item Value Reference Range Interpretation Comments Segs-Bands # (test code = Segs-Bands #) 5.3 1.5-8.1 [facility] HospitalIwehduvDOTQNJUBSW8465-07-29 10:00:00 Test Item Value Reference Range Interpretation Comments Basophils (test code = 0.3 See_Comment [Aut omated message] The Basophils) system which ge nerated this result tra nsmitted reference range : <=1.0. The reference r katie was not used to int erpret this result as normal/abnormal . [facility]VrsytigMWKXRGVMMD3703-54-69 10:00:00 Test Item Value Reference Range Interpretation Comments Eosinophils (test code = 1.8 See_Comment [A utomated message] The Eosinophils) system which ge nerated this result tra nsmitted reference range : <=4.0. The reference r katie was not used to int erpret this result as normal/abnormal . [facility]IjvwbfcTNVDAZ7945-92-28 10:00:00 Test Item Value Reference Range Interpretation Comments CHD Risk (test code = CHD Risk) 3.00 3.90-5.80 [facility]FqulabvWOELVY5543-07-32 10:00:00 Test Item Value Reference Range Interpretation Comments VLDL (test code = VLDL) 24 [facility]XwjotdcMUPSRI2454-57-86 10:00:00 Test Item Value Reference Range Interpretation Comments LDL (Calculated) (test code = LDL 28 (Calculated)) [facility] [facility] [place]UllwshrDVJCSP0480-33-67 10:00:00 Test Item Value Reference Range Interpretation Comments HDL (test code = HDL) 26 [facility]AzlwrpaXUNHPU6412-83-38 10:00:00 Test Item Value Reference Range Interpretation Comments Trig (test code = Trig) 122 [facility] ArlingtonXabxgscBPTAUT2338-40-59 10:00:00 Test Item Value Reference Range Interpretation Comments Chol (test code = Chol) 78 [facility]annTHY[facility] [id number] 10:00:00 Test Item Value Reference Range Interpretation Comments T4 (test code = T4) 7.9 4.7-13.3 [facility] [id number] 10:00:00 Test Item Value Reference Range Interpretation Comments T3 Uptake (test code = T3 Uptake) 40 31-39 [facility] [id number] 10:00:00 Test Item Value Reference Range Interpretation Comments TSH (test code = TSH) 3.360 0.360-3.740 [facility] [id number] 10:00:00 Test Item Value Reference Range Interpretation Comments FTI (test code = FTI) 3.2 [facility] [id number] 10:00:00 Test Item Value Reference Range Interpretation Comments Phosphorus (test code = Phosphorus) 2.5 2.5-4.5 [facility] [id number] 10:00:00 Test Item Value Reference Range Interpretation Comments Magnesium Lvl (test code = Magnesium 1.9 1.8-2.4 Lvl) [facility] HospitalMlnjlcvUZHZCYUBYXHI6968-62-93 10:00:00 Test Item Value Reference Range Interpretation Comments AGAP (test code = AGAP) 9.9 10.0-20.[address] [facility] HospitalMtgozfsVZQCOTRNZPRK7482-14-20 10:00:00 Test Item Value Reference Range Interpretation Comments eGFR (test code = eGFR) [address] [facility] HospitalKohzgkoMRYNODWTLIAE6572-09-09 10:00:00 Test Item Value Reference Range Interpretation Comments BUN (test code = BUN) 9 7-[address] [facility] HospitalJerkegxFVHQJVCICEJG7384-02-62 10:00:00 Test Item Value Reference Range Interpretation Comments Glucose Lvl (test code = Glucose Lvl) 102 70-[address] [facility] HospitalUyoddnlKEJUNGERILXR4690-15-38 10:00:00 Test Item Value Reference Range Interpretation Comments Potassium Lvl (test code = Potassium 3.9 3.5-5.1 Lvl) [facility] HospitalKzjlccyTFCTUJEUOZTA0072-80-90 10:00:00 Test Item Value Reference Range Interpretation Comments Creatinine Lvl (test code = Creatinine 1.0 0.5-1.4 Lvl) [facility] HospitalYaafvjmWIEMATXSRRCB8072-61-74 10:00:00 Test Item Value Reference Range Interpretation Comments Sodium Lvl (test code = Sodium Lvl) 141 135-[address] [facility] HospitalDufcplrGTEDFIMHNIGA1989-84-74 10:00:00 Test Item Value Reference Range Interpretation Comments Calcium Lvl (test code = Calcium Lvl) 8.1 8.5-10.[address] [facility] HospitalQxikweuBUCGSKFZSTCG1413-35-66 10:00:00 Test Item Value Reference Range Interpretation Comments CO2 (test code = CO2) 26 24-[address] [facility] HospitalWnxnykkWYMTLSMZELYK4019-01-35 10:00:00 Test Item Value Reference Range Interpretation Comments Chloride Lvl (test code = Chloride Lvl) 109 95-109 [facility] CampusNipqnycWRPIXIVPCWFPR2923-22-90 10:00:00 Test Item Value Reference Range Interpretation Comments FSH (test code = FSH) 33.9 [facility] HospitalGeipujyKYZUWVJRIF0049-46-69 10:00:00 Test Item Value Reference Range Interpretation Comments MPV (test code = MPV) 6.9 7.4-10.4 [facility] HospitalMnstjvxQUFSCLHTIC4138-63-05 10:00:00 Test Item Value Reference Range Interpretation Comments Hct (test code = Hct) 28.4 36.0-48.0 [facility] HospitalQafdiylOOFAIWTDKT3196-45-10 10:00:00 Test Item Value Reference Range Interpretation Comments Hgb (test code = Hgb) 9.8 12.0-16.0 [facility] HospitalCyzswecOIOWHQEUJT4988-71-64 10:00:00 Test Item Value Reference Range Interpretation Comments RBC (test code = RBC) 3.15 4.20-5.40 [facility] HospitalWoqvebjBQRQIRCHWM7153-76-82 10:00:00 Test Item Value Reference Range Interpretation Comments WBC (test code = WBC) 8.4 3.7-10.4 [facility] HospitalQpsezjmVBAFSTQDHI1006-13-41 10:00:00 Test Item Value Reference Range Interpretation Comments Platelet (test code = Platelet) 118 133-450 [facility] HospitalFxegdyzAAKLNEERPX0229-03-09 10:00:00 Test Item Value Reference Range Interpretation Comments RDW (test code = RDW) 19.9 11.5-14.5 [facility] HospitalSlinrguYUOTDGAVMW8589-53-16 10:00:00 Test Item Value Reference Range Interpretation Comments MCHC (test code = MCHC) 34.6 32.0-36.0 [facility] HospitalObuzemsTITCUUCDMV3555-63-45 10:00:00 Test Item Value Reference Range Interpretation Comments MCH (test code = MCH) 31.2 pg 27.0-31.0 [facility] HospitalIphpkceJRSEWITXXC7171-83-41 10:00:00 Test Item Value Reference Range Interpretation Comments MCV (test code = MCV) 90.2 81.0-99.0 [facility] HospitalWvjnjjiLBVWAIAXFB1863-84-27 10:00:00 Test Item Value Reference Range Interpretation Comments Monocytes # (test code 0.7 See_Comment [Aut omated message] The = Monocytes #) system which generated this result tra nsmitted reference range : <=0.8. The reference r katie was not used to int erpret this result as normal/abnormal . [facility] HospitalIfbnkkvIQLJTUUHEA6986-89-49 10:00:00 Test Item Value Reference Range Interpretation Comments Lymphocytes # (test code = Lymphocytes 2.2 1.0-5.5 #) [facility] HospitalJuzayytTQRZOHUUOC3867-49-16 10:00:00 Test Item Value Reference Range Interpretation Comments Eosinophils # (test code 0.1 See_Comment [A utomated message] The = Eosinophils #) system whic h generated this result tra nsmitted reference range : <=0.5. The reference r katie was not used to int erpret this result as normal/abnormal . [facility] HospitalOsawpqyAAXLXGDZGG2598-32-13 10:00:00 Test Item Value Reference Range Interpretation Comments Basophils # (test code 0.0 See_Comment [Aut omated message] The = Basophils #) system which generated this result tra nsmitted reference range : <=0.2. The reference r katie was not used to int erpret this result as normal/abnormal . [facility] HospitalHffzusnWUGUUCVTUT5856-42-08 10:00:00 Test Item Value Reference Range Interpretation Comments Segs (test code = Segs) 63.5 45.0-75.0 [facility] HospitalXkuawwcTOCMKYYBYP7817-10-87 10:00:00 Test Item Value Reference Range Interpretation Comments Monocytes (test code = Monocytes) 8.5 2.0-12.0 [facility] HospitalPskqnxeYDLDVFYDWA3396-19-21 10:00:00 Test Item Value Reference Range Interpretation Comments Lymphocytes (test code = Lymphocytes) 25.9 20.0-40.0 [facility] HospitalCyivokxIPZMNXBQEH4586-54-37 10:00:00 Test Item Value Reference Range Interpretation Comments Segs-Bands # (test code = Segs-Bands #) 5.3 1.5-8.1 [facility] HospitalFaeveeyQFFEFQKXAM8317-17-37 10:00:00 Test Item Value Reference Range Interpretation Comments Basophils (test code = 0.3 See_Comment [Aut omated message] The Basophils) system which ge nerated this result tra nsmitted reference range : <=1.0. The reference r katie was not used to int erpret this result as normal/abnormal . [facility] HospitalZwqghidSXWADXDETE2993-27-19 10:00:00 Test Item Value Reference Range Interpretation Comments Eosinophils (test code = 1.8 See_Comment [A utomated message] The Eosinophils) system which ge nerated this result tra nsmitted reference range : <=4.0. The reference r katie was not used to int erpret this result as normal/abnormal . [facility]QzmqodpCOWCCR0900-82-44 10:00:00 Test Item Value Reference Range Interpretation Comments CHD Risk (test code = CHD Risk) 3.00 3.90-5.80 [facility] ArlingtonBylsbrfMNBEZC1931-29-51 10:00:00 Test Item Value Reference Range Interpretation Comments VLDL (test code = VLDL) 24 [facility] ArlingtonEsuqovrUPGDYR1694-27-01 10:00:00 Test Item Value Reference Range Interpretation Comments LDL (Calculated) (test code = LDL 28 (Calculated)) [facility] ArlingtonUfxpalqRHVJAB1755-38-66 10:00:00 Test Item Value Reference Range Interpretation Comments HDL (test code = HDL) 26 [facility] ArlingtonMiemolkIGIKSE6367-07-12 10:00:00 Test Item Value Reference Range Interpretation Comments Trig (test code = Trig) 122 [facility] ArlingtonZbiigiqWKOJRR0926-84-81 10:00:00 Test Item Value Reference Range Interpretation Comments Chol (test code = Chol) 78 [facility]annTHYROID GZZFJ7641-84-62 10:00:00 Test Item Value Reference Range Interpretation Comments T4 (test code = T4) 7.9 4.7-13.3 [facility]annTH[facility]ID QVOYZ7959-67-14 10:00:00 Test Item Value Reference Range Interpretation Comments T3 Uptake (test code = T3 Uptake) 40 31-39 [facility]annTHYROID STGSS2852-98-68 10:00:00 Test Item Value Reference Range Interpretation Comments TSH (test code = TSH) 3.360 0.360-3.740 [facility]annTHYROID FUQIC8193-00-04 10:00:00 Test Item Value Reference Range Interpretation Comments FTI (test code = FTI) 3.2 [facility]annCHEM AGJUH8617-40-54 10:00:00 Test Item Value Reference Range Interpretation Comments Phosphorus (test code = Phosphorus) 2.5 2.5-4.5 [facility]CHE[facility] ODAQA5338-53-75 10:00:00 Test Item Value Reference Range Interpretation Comments Magnesium Lvl (test code = Magnesium 1.9 1.8-2.4 Lvl) [facility] ArlingtonFranazgNKFNVZTSWAQL0500-74-55 10:00:00 Test Item Value Reference Range Interpretation Comments AGAP (test code = AGAP) 9.9 10.0-20.[address] [facility] HospitalNciwohqWNVXDHHKEXID4713-50-15 10:00:00 Test Item Value Reference Range Interpretation Comments eGFR (test code = eGFR) [address] [facility] HospitalAcjkdyiDCPQDOLIACEI3596-15-20 10:00:00 Test Item Value Reference Range Interpretation Comments BUN (test code = BUN) 9 7-[address] [facility] HospitalMsqosbkRIPRJQJUUYCX1111-98-27 10:00:00 Test Item Value Reference Range Interpretation Comments Glucose Lvl (test code = Glucose Lvl) 102 70-[address] [facility] HospitalIhqntqmYENCAFSNRIWZ8484-00-24 10:00:00 Test Item Value Reference Range Interpretation Comments Potassium Lvl (test code = Potassium 3.9 3.5-5.1 Lvl) [facility] HospitalZqfpsteSEUPAFNXGQLI8433-76-23 10:00:00 Test Item Value Reference Range Interpretation Comments Creatinine Lvl (test code = Creatinine 1.0 0.5-1.4 Lvl) [facility] HospitalVisuctmGWUZAPIQLXJM2467-86-52 10:00:00 Test Item Value Reference Range Interpretation Comments Sodium Lvl (test code = Sodium Lvl) 141 135-[address] [facility] HospitalSjzcgryHXTVHEGBNHYG8415-65-34 10:00:00 Test Item Value Reference Range Interpretation Comments Calcium Lvl (test code = Calcium Lvl) 8.1 8.5-10.[address] [facility] HospitalHnjyidbJMCKKUYHGEYN1024-80-79 10:00:00 Test Item Value Reference Range Interpretation Comments CO2 (test code = CO2) 26 24-[address] [facility] HospitalGcauvixCYNNTKKGTMNG0723-86-79 10:00:00 Test Item Value Reference Range Interpretation Comments Chloride Lvl (test code = Chloride Lvl) 109 95-109 [facility] CampusNtiqfuvSFXMSYHIOPAJP6912-69-43 10:00:00 Test Item Value Reference Range Interpretation Comments FSH (test code = FSH) 33.9 [facility] HospitalJuknxcwEONUGMVWLO5825-34-27 10:00:00 Test Item Value Reference Range Interpretation Comments MPV (test code = MPV) 6.9 7.4-10.4 [facility] HospitalJpijhlpWHJLNWDETM3318-69-42 10:00:00 Test Item Value Reference Range Interpretation Comments Hct (test code = Hct) 28.4 36.0-48.0 [facility] HospitalNoywjcbNDWDLWFJCK9373-93-17 10:00:00 Test Item Value Reference Range Interpretation Comments Hgb (test code = Hgb) 9.8 12.0-16.0 [facility] HospitalCtvhafeBKJZIOSTDM6845-87-11 10:00:00 Test Item Value Reference Range Interpretation Comments RBC (test code = RBC) 3.15 4.20-5.40 [facility] HospitalHkwmavcCHXHABERJA1745-28-50 10:00:00 Test Item Value Reference Range Interpretation Comments WBC (test code = WBC) 8.4 3.7-10.4 [facility] HospitalGhtgcooTPQXBYQMMQ2699-15-24 10:00:00 Test Item Value Reference Range Interpretation Comments Platelet (test code = Platelet) 118 133-450 [facility] HospitalPnvtazyQBLXFUPDCJ2048-20-18 10:00:00 Test Item Value Reference Range Interpretation Comments RDW (test code = RDW) 19.9 11.5-14.5 [facility] HospitalLgqrdhlAFRPXDFIOI3267-27-51 10:00:00 Test Item Value Reference Range Interpretation Comments MCHC (test code = MCHC) 34.6 32.0-36.0 [facility] HospitalVdljssfTKAHDOFCPB2117-43-09 10:00:00 Test Item Value Reference Range Interpretation Comments MCH (test code = MCH) 31.2 pg 27.0-31.0 [facility] HospitalFwdunyvKJAHXHJNNX3060-72-92 10:00:00 Test Item Value Reference Range Interpretation Comments MCV (test code = MCV) 90.2 81.0-99.0 [facility] HospitalLxgusdyXUCIBERHBI3278-27-02 10:00:00 Test Item Value Reference Range Interpretation Comments Monocytes # (test code 0.7 See_Comment [Aut omated message] The = Monocytes #) system which generated this result tra nsmitted reference range : <=0.8. The reference r katie was not used to int erpret this result as normal/abnormal . [facility] HospitalFhrczsoXORBABXNTF6367-40-75 10:00:00 Test Item Value Reference Range Interpretation Comments Lymphocytes # (test code = Lymphocytes 2.2 1.0-5.5 #) [facility] HospitalIpqwqkhETRKLBGOPH8770-72-43 10:00:00 Test Item Value Reference Range Interpretation Comments Eosinophils # (test code 0.1 See_Comment [A utomated message] The = Eosinophils #) system whic h generated this result tra nsmitted reference range : <=0.5. The reference r katie was not used to int erpret this result as normal/abnormal . [facility] HospitalVzqfyiiNKXDNBHUHM1125-15-89 10:00:00 Test Item Value Reference Range Interpretation Comments Basophils # (test code 0.0 See_Comment [Aut omated message] The = Basophils #) system which generated this result tra nsmitted reference range : <=0.2. The reference r katie was not used to int erpret this result as normal/abnormal . [facility] HospitalTftlzpdFUCHHNMPPH9445-86-62 10:00:00 Test Item Value Reference Range Interpretation Comments Segs (test code = Segs) 63.5 45.0-75.0 [facility] HospitalRusynwpBVXHKHKLGL6175-13-69 10:00:00 Test Item Value Reference Range Interpretation Comments Monocytes (test code = Monocytes) 8.5 2.0-12.0 [facility] HospitalDnmxpasEPBAJGDTOS6001-01-86 10:00:00 Test Item Value Reference Range Interpretation Comments Lymphocytes (test code = Lymphocytes) 25.9 20.0-40.0 [facility] HospitalQieohucWQYDVHOBSQ6577-27-94 10:00:00 Test Item Value Reference Range Interpretation Comments Segs-Bands # (test code = Segs-Bands #) 5.3 1.5-8.1 [facility] HospitalNmzpugmRDLXWEBMSU1424-27-82 10:00:00 Test Item Value Reference Range Interpretation Comments Basophils (test code = 0.3 See_Comment [Aut omated message] The Basophils) system which ge nerated this result tra nsmitted reference range : <=1.0. The reference r katie was not used to int erpret this result as normal/abnormal . [facility] HospitalAksotlgSMHCBQMVMV4061-24-50 10:00:00 Test Item Value Reference Range Interpretation Comments Eosinophils (test code = 1.8 See_Comment [A utomated message] The Eosinophils) system which ge nerated this result tra nsmitted reference range : <=4.0. The reference r katie was not used to int erpret this result as normal/abnormal . [facility] SystemHytkshdYDOKUE5382-72-17 10:00:00 Test Item Value Reference Range Interpretation Comments CHD Risk (test code = CHD Risk) 3.00 3.90-5.80 [facility] SystemNpltmtiJURAJJ1197-24-17 10:00:00 Test Item Value Reference Range Interpretation Comments VLDL (test code = VLDL) 24 [facility] ArlingtonVtfmkpgQCUXLH6592-03-26 10:00:00 Test Item Value Reference Range Interpretation Comments LDL (Calculated) (test code = LDL 28 (Calculated)) [facility] GircdbsJCHVDV8521-75-30 10:00:00 Test Item Value Reference Range Interpretation Comments HDL (test code = HDL) 26 [facility] ArlingtonLukzvdoNNAPCV9356-05-11 10:00:00 Test Item Value Reference Range Interpretation Comments Trig (test code = Trig) 122 [facility] ArlingtonGpqfrplAZYEZU1178-46-53 10:00:00 Test Item Value Reference Range Interpretation Comments Chol (test code = Chol) [address] [facility] HermannTHYROID LGBMA3035-82-19 10:00:00 Test Item Value Reference Range Interpretation Comments T4 (test code = T4) 7.9 4.7-13.3 [facility]TH[facility] PORXG8615-73-16 10:00:00 Test Item Value Reference Range Interpretation Comments T3 Uptake (test code = T3 Uptake) 40 31-39 [facility]THYROID SEUNU4061-22-59 10:00:00 Test Item Value Reference Range Interpretation Comments TSH (test code = TSH) 3.360 0.360-3.740 [facility]annTHYRO[facility] QCIFY1588-19-15 10:00:00 Test Item Value Reference Range Interpretation Comments FTI (test code = FTI) 3.2 [facility]annCHEM WDRNS1068-66-12 10:00:00 Test Item Value Reference Range Interpretation Comments Phosphorus (test code = Phosphorus) 2.5 2.5-4.5 [facility]annCHEM XPCQE1943-32-36 10:00:00 Test Item Value Reference Range Interpretation Comments Magnesium Lvl (test code = Magnesium 1.9 1.8-2.4 Lvl) [facility] ArlingtonLqclteaDIBJTYDSKXXL2837-78-56 10:00:00 Test Item Value Reference Range Interpretation Comments AGAP (test code = AGAP) 9.9 10.0-20.0 [facility] QrenspcGEAOOOXIMIZU4027-25-07 10:00:00 Test Item Value Reference Range Interpretation Comments eGFR (test code = eGFR) 61 [facility] ArlingtonOfpqlbfCNTDGRKYIUMF3812-93-99 10:00:00 Test Item Value Reference Range Interpretation Comments BUN (test code = BUN) 9 7-22 [facility] ZyglvbmNADZVKDINFPO4688-14-91 10:00:00 Test Item Value Reference Range Interpretation Comments Glucose Lvl (test code = Glucose Lvl) 102 70-[address] [facility] HospitalGekwuneLZSZJFYKKGLF5244-32-05 10:00:00 Test Item Value Reference Range Interpretation Comments Potassium Lvl (test code = Potassium 3.9 3.5-5.1 Lvl) [facility] HospitalEhsxqrfDYZMKTZAEJSS8732-81-55 10:00:00 Test Item Value Reference Range Interpretation Comments Creatinine Lvl (test code = Creatinine 1.0 0.5-1.4 Lvl) [facility] HospitalQyvjglfYZTSVNKISTDG8401-43-46 10:00:00 Test Item Value Reference Range Interpretation Comments Sodium Lvl (test code = Sodium Lvl) 141 135-[address] [facility] HospitalXwrtavyIWGMKPCFOLFU2885-38-04 10:00:00 Test Item Value Reference Range Interpretation Comments Calcium Lvl (test code = Calcium Lvl) 8.1 8.5-10.[address] [facility] HospitalMloxygdROODRIYPJPGZ5968-76-43 10:00:00 Test Item Value Reference Range Interpretation Comments CO2 (test code = CO2) 26 24-[address] [facility] HospitalDojlxioICCYYYNUKQSP1578-30-05 10:00:00 Test Item Value Reference Range Interpretation Comments Chloride Lvl (test code = Chloride Lvl) 109 95-109 [facility]wyqmoeJUKJCJKFZHBLF8490-20-72 10:00:00 Test Item Value Reference Range Interpretation Comments FSH (test code = FSH) 33.9 [facility] HospitalLolayjfGXAJPVEBKP1994-50-43 10:00:00 Test Item Value Reference Range Interpretation Comments MPV (test code = MPV) 6.9 7.4-10.4 [facility] HospitalHppnlitQHRUHXFXUY9589-92-77 10:00:00 Test Item Value Reference Range Interpretation Comments Hct (test code = Hct) 28.4 36.0-48.0 [facility] HospitalIcpdbcePHPQEIEIQS2479-22-68 10:00:00 Test Item Value Reference Range Interpretation Comments Hgb (test code = Hgb) 9.8 12.0-16.0 [facility] HospitalSlbyksmCDBXFXUAUG9143-08-38 10:00:00 Test Item Value Reference Range Interpretation Comments RBC (test code = RBC) 3.15 4.20-5.40 [facility] HospitalKksjiycFPJKFVPUKR5301-16-10 10:00:00 Test Item Value Reference Range Interpretation Comments WBC (test code = WBC) 8.4 3.7-10.4 [facility] HospitalMvvzsvuPPHQLHYMMF3530-27-66 10:00:00 Test Item Value Reference Range Interpretation Comments Platelet (test code = Platelet) 118 133-450 [facility] HospitalMchliopBWRQLXBUJP8246-29-92 10:00:00 Test Item Value Reference Range Interpretation Comments RDW (test code = RDW) 19.9 11.5-14.5 [facility] HospitalLrxsseyXFPFBUEWTW1257-00-78 10:00:00 Test Item Value Reference Range Interpretation Comments MCHC (test code = MCHC) 34.6 32.0-36.0 [facility] HospitalPtioogrKXHTWWDEQW1024-45-75 10:00:00 Test Item Value Reference Range Interpretation Comments MCH (test code = MCH) 31.2 pg 27.0-31.0 [facility] HospitalOaholmoTVBLIAAZZA4039-92-59 10:00:00 Test Item Value Reference Range Interpretation Comments MCV (test code = MCV) 90.2 81.0-99.0 [facility] HospitalCrsrndlJOUZZUPTKO4860-45-24 10:00:00 Test Item Value Reference Range Interpretation Comments Monocytes # (test code 0.7 See_Comment [Aut omated message] The = Monocytes #) system which generated this result tra nsmitted reference range : <=0.8. The reference r katie was not used to int erpret this result as normal/abnormal . [facility] HospitalPhxahcgSFFCPTERMG1386-24-24 10:00:00 Test Item Value Reference Range Interpretation Comments Lymphocytes # (test code = Lymphocytes 2.2 1.0-5.5 #) [facility] HospitalUsazqtsVHVZEBKGBB2473-46-46 10:00:00 Test Item Value Reference Range Interpretation Comments Eosinophils # (test code 0.1 See_Comment [A utomated message] The = Eosinophils #) system whic h generated this result tra nsmitted reference range : <=0.5. The reference r katie was not used to int erpret this result as normal/abnormal . [facility] HospitalSzdhrhbLLNXGOQRBQ0964-23-55 10:00:00 Test Item Value Reference Range Interpretation Comments Basophils # (test code 0.0 See_Comment [Aut omated message] The = Basophils #) system which generated this result tra nsmitted reference range : <=0.2. The reference r katie was not used to int erpret this result as normal/abnormal . [facility] HospitalSgrpqkaPJBNSMEABX1990-28-32 10:00:00 Test Item Value Reference Range Interpretation Comments Segs (test code = Segs) 63.5 45.0-75.0 [facility] HospitalCilaumpGSYATZNBRF7848-96-76 10:00:00 Test Item Value Reference Range Interpretation Comments Monocytes (test code = Monocytes) 8.5 2.0-12.0 [facility] HospitalGvvznpoROMEGKJAFD2506-78-19 10:00:00 Test Item Value Reference Range Interpretation Comments Lymphocytes (test code = Lymphocytes) 25.9 20.0-40.0 [facility] HospitalEivgrdtVLBZTHENVB0574-94-76 10:00:00 Test Item Value Reference Range Interpretation Comments Segs-Bands # (test code = Segs-Bands #) 5.3 1.5-8.1 [facility] HospitalLrdvapuDLHWYGPCDN4445-40-84 10:00:00 Test Item Value Reference Range Interpretation Comments Basophils (test code = 0.3 See_Comment [Aut omated message] The Basophils) system which nerated this result tra nsmitted reference range : <=1.0. The reference r katie was not used to int erpret this result as normal/abnormal . [facility] HospitalEsspwusXAEXNJNYWF8536-91-24 10:00:00 Test Item Value Reference Range Interpretation Comments Eosinophils (test code = 1.8 See_Comment [A utomated message] The Eosinophils) system which ge nerated this result tra nsmitted reference range : <=4.0. The reference r katie was not used to int erpret this result as normal/abnormal . [facility] SystemExkreldNMHXRD2235-16-79 10:00:00 Test Item Value Reference Range Interpretation Comments CHD Risk (test code = CHD Risk) 3.00 3.90-5.80 [facility] SystemGrabwafCDZVOU6023-45-38 10:00:00 Test Item Value Reference Range Interpretation Comments VLDL (test code = VLDL) 24 [facility] SystemBheffezANWPXZ5421-64-53 10:00:00 Test Item Value Reference Range Interpretation Comments LDL (Calculated) (test code = LDL 28 (Calculated)) [facility] SystemFvkvqpzRWXXGX7104-90-43 10:00:00 Test Item Value Reference Range Interpretation Comments HDL (test code = HDL) 26 [facility]TanthjqAXNZCE0548-40-73 10:00:00 Test Item Value Reference Range Interpretation Comments Trig (test code = Trig) 122 [facility]HefdxozXRVQYE4921-78-63 10:00:00 Test Item Value Reference Range Interpretation Comments Chol (test code = Chol) 78 [facility]TH[facility] [id number] 10:00:00 Test Item Value Reference Range Interpretation Comments T4 (test code = T4) 7.9 4.7-13.3 [facility] [id number] 10:00:00 Test Item Value Reference Range Interpretation Comments T3 Uptake (test code = T3 Uptake) 40 31-39 [facility] [id number] 10:00:00 Test Item Value Reference Range Interpretation Comments TSH (test code = TSH) 3.360 0.360-3.740 [facility] [id number] 10:00:00 Test Item Value Reference Range Interpretation Comments FTI (test code = FTI) 3.2 [facility] [id number] 10:00:00 Test Item Value Reference Range Interpretation Comments Phosphorus (test code = Phosphorus) 2.5 2.5-4.5 [facility] [id number] 10:00:00 Test Item Value Reference Range Interpretation Comments Magnesium Lvl (test code = Magnesium 1.9 1.8-2.4 Lvl) [facility] ArlingtonZllrdwgZOOWFCGGFXFC7831-64-62 10:00:00 Test Item Value Reference Range Interpretation Comments AGAP (test code = AGAP) 9.9 10.0-20.0 [facility] ArlingtonSvsqewvYWXJPJJJWSKD8845-05-10 10:00:00 Test Item Value Reference Range Interpretation Comments eGFR (test code = eGFR) 61 [facility] ArlingtonRviezufQOKXEKHKBEHC1666-89-95 10:00:00 Test Item Value Reference Range Interpretation Comments BUN (test code = BUN) 9 7-22 [facility] ArlingtonSoakxnpVSXBVIBSPSAC8411-38-32 10:00:00 Test Item Value Reference Range Interpretation Comments Glucose Lvl (test code = Glucose Lvl) 102 70-99 [facility]WpwyuxqWXMTXKSZMPFP3369-64-53 10:00:00 Test Item Value Reference Range Interpretation Comments Potassium Lvl (test code = Potassium 3.9 3.5-5.1 Lvl) [facility] ArlingtonJunqamdURTRUXCWVHOG2870-24-03 10:00:00 Test Item Value Reference Range Interpretation Comments Creatinine Lvl (test code = Creatinine 1.0 0.5-1.4 Lvl) [facility] HospitalAgdkeapFUKFARHZZQQW9358-38-59 10:00:00 Test Item Value Reference Range Interpretation Comments Sodium Lvl (test code = Sodium Lvl) 141 135-[address] [facility] HospitalFnyagugHLDGDFLWMOBT3813-27-95 10:00:00 Test Item Value Reference Range Interpretation Comments Calcium Lvl (test code = Calcium Lvl) 8.1 8.5-10.[address] [facility] HospitalAjawmlbQZOFQWWUWOAC1961-38-62 10:00:00 Test Item Value Reference Range Interpretation Comments CO2 (test code = CO2) 26 24-[address] [facility] HospitalMjmwceeCJOWKRJYJRDB3180-73-57 10:00:00 Test Item Value Reference Range Interpretation Comments Chloride Lvl (test code = Chloride Lvl) 109 95-109 [place] [id number] 10:00:00 Test Item Value Reference Range Interpretation Comments FSH (test code = FSH) 33.9 [facility] HospitalOntguotMOGKVDUKPZ8005-17-25 10:00:00 Test Item Value Reference Range Interpretation Comments MPV (test code = MPV) 6.9 7.4-10.4 [facility] HospitalSmlypsrMPIWCBHUUR6917-58-41 10:00:00 Test Item Value Reference Range Interpretation Comments Hct (test code = Hct) 28.4 36.0-48.0 [facility] HospitalFrtdeytMIHWBVFZDN0360-89-80 10:00:00 Test Item Value Reference Range Interpretation Comments Hgb (test code = Hgb) 9.8 12.0-16.0 [facility] HospitalFgujprqPDGRQAZOIA6095-48-93 10:00:00 Test Item Value Reference Range Interpretation Comments RBC (test code = RBC) 3.15 4.20-5.40 [facility] HospitalYrmhuobKSNMCRMRSK7863-20-99 10:00:00 Test Item Value Reference Range Interpretation Comments WBC (test code = WBC) 8.4 3.7-10.4 [facility] HospitalImfntwtHQWMULWDPF1370-26-95 10:00:00 Test Item Value Reference Range Interpretation Comments Platelet (test code = Platelet) 118 133-450 [facility] HospitalZruplbgECXWOXEAYW7863-45-70 10:00:00 Test Item Value Reference Range Interpretation Comments RDW (test code = RDW) 19.9 11.5-14.5 [facility] HospitalVkgnsdrIGSWBLEFYE7962-66-29 10:00:00 Test Item Value Reference Range Interpretation Comments MCHC (test code = MCHC) 34.6 32.0-36.0 [facility] HospitalWcywqgbGXCFCBVDOI5496-45-58 10:00:00 Test Item Value Reference Range Interpretation Comments MCH (test code = MCH) 31.2 pg 27.0-31.0 [facility] HospitalLusafriTIYLSWCNTI0402-95-02 10:00:00 Test Item Value Reference Range Interpretation Comments MCV (test code = MCV) 90.2 81.0-99.0 [facility] HospitalEkkmvenHIUEWSZENG5562-61-64 10:00:00 Test Item Value Reference Range Interpretation Comments Monocytes # (test code 0.7 See_Comment [Aut omated message] The = Monocytes #) system which generated this result tra nsmitted reference range : <=0.8. The reference r katie was not used to int erpret this result as normal/abnormal . [facility] HospitalKmficpjUGFCBQEPLY1084-00-00 10:00:00 Test Item Value Reference Range Interpretation Comments Lymphocytes # (test code = Lymphocytes 2.2 1.0-5.5 #) [facility] HospitalMqmtkzpMXNXXAOTZH9345-82-13 10:00:00 Test Item Value Reference Range Interpretation Comments Eosinophils # (test code 0.1 See_Comment [A utomated message] The = Eosinophils #) system whic h generated this result tra nsmitted reference range : <=0.5. The reference r katie was not used to int erpret this result as normal/abnormal . [facility] HospitalAechxinZJXKIEKCTY9649-90-09 10:00:00 Test Item Value Reference Range Interpretation Comments Basophils # (test code 0.0 See_Comment [Aut omated message] The = Basophils #) system which generated this result tra nsmitted reference range : <=0.2. The reference r katie was not used to int erpret this result as normal/abnormal . [facility] HospitalOrugrlyNJZFEAAAVV2197-71-00 10:00:00 Test Item Value Reference Range Interpretation Comments Segs (test code = Segs) 63.5 45.0-75.0 [facility] HospitalXdvyafzIIOVHIOSPD1306-97-07 10:00:00 Test Item Value Reference Range Interpretation Comments Monocytes (test code = Monocytes) 8.5 2.0-12.0 [facility] HospitalTasykgvFMDWPYADJU3962-38-12 10:00:00 Test Item Value Reference Range Interpretation Comments Lymphocytes (test code = Lymphocytes) 25.9 20.0-40.0 [facility] HospitalNverpqvMTSXKQYLKG5184-67-55 10:00:00 Test Item Value Reference Range Interpretation Comments Segs-Bands # (test code = Segs-Bands #) 5.3 1.5-8.1 [facility] HospitalPkqfbmrADDQDFTCKK4192-79-86 10:00:00 Test Item Value Reference Range Interpretation Comments Basophils (test code = 0.3 See_Comment [Aut omated message] The Basophils) system which ge nerated this result tra nsmitted reference range : <=1.0. The reference r katie was not used to int erpret this result as normal/abnormal . [facility] HospitalWtscdsuEFNWLRQQPU0801-58-21 10:00:00 Test Item Value Reference Range Interpretation Comments Eosinophils (test code = 1.8 See_Comment [A utomated message] The Eosinophils) system which ge nerated this result tra nsmitted reference range : <=4.0. The reference r katie was not used to int erpret this result as normal/abnormal . [facility] SystemGkinfloNSXENO2944-50-65 10:00:00 Test Item Value Reference Range Interpretation Comments CHD Risk (test code = CHD Risk) 3.00 3.90-5.80 [facility] SystemTeyzbytSLOSRA1332-81-66 10:00:00 Test Item Value Reference Range Interpretation Comments VLDL (test code = VLDL) 24 [facility] SystemBexittqQASSQF1866-11-81 10:00:00 Test Item Value Reference Range Interpretation Comments LDL (Calculated) (test code = LDL 28 (Calculated)) [facility] SystemLjaohppHYDRRJ7067-30-51 10:00:00 Test Item Value Reference Range Interpretation Comments HDL (test code = HDL) 26 [facility] HospitalMewakyzROZRPP4267-68-33 10:00:00 Test Item Value Reference Range Interpretation Comments Trig (test code = Trig) 122 [facility] SystemDsmezlwHQBXED5890-00-17 10:00:00 Test Item Value Reference Range Interpretation Comments Chol (test code = Chol) 78 [facility] HospitalTHYROID VNHZQ8711-98-17 10:00:00 Test Item Value Reference Range Interpretation Comments T4 (test code = T4) 7.9 4.7-13.3 [facility] HospitalTHYROID EXZUI7499-96-74 10:00:00 Test Item Value Reference Range Interpretation Comments T3 Uptake (test code = T3 Uptake) 40 31-39 [facility]TH[facility] [id number] 10:00:00 Test Item Value Reference Range Interpretation Comments TSH (test code = TSH) 3.360 0.360-3.740 [facility] HospitalTHYROID YZPWM3562-57-53 10:00:00 Test Item Value Reference Range Interpretation Comments FTI (test code = FTI) 3.2 [facility] HospitalCHEM CHKNV7263-62-93 10:00:00 Test Item Value Reference Range Interpretation Comments Phosphorus (test code = Phosphorus) 2.5 2.5-4.5 [facility]CHE[facility] [id number] 10:00:00 Test Item Value Reference Range Interpretation Comments Magnesium Lvl (test code = Magnesium 1.9 1.8-2.4 Lvl) [facility] HospitalAccahffVCFXQBAXUDVH7164-70-94 10:00:00 Test Item Value Reference Range Interpretation Comments AGAP (test code = AGAP) 9.9 10.0-20.[address] [facility] HospitalGhvlmfzEVHWYZCDCWEZ8188-61-21 10:00:00 Test Item Value Reference Range Interpretation Comments eGFR (test code = eGFR) [address] [facility] HospitalNlzjhbkZXPIBMLCJGBI8085-22-44 10:00:00 Test Item Value Reference Range Interpretation Comments BUN (test code = BUN) 9 7-[address] [facility] HospitalCxfamucIFENHUZLYXDA1684-22-43 10:00:00 Test Item Value Reference Range Interpretation Comments Glucose Lvl (test code = Glucose Lvl) 102 70-[address] [facility] HospitalQpkgcuzRNNIGMOHIEJX5001-03-57 10:00:00 Test Item Value Reference Range Interpretation Comments Potassium Lvl (test code = Potassium 3.9 3.5-5.1 Lvl) [facility] HospitalJvriofzJVPFDNJHUTGM9222-52-84 10:00:00 Test Item Value Reference Range Interpretation Comments Creatinine Lvl (test code = Creatinine 1.0 0.5-1.4 Lvl) [facility] HospitalKmsgfnvCQRXJBTSFVDW7871-29-79 10:00:00 Test Item Value Reference Range Interpretation Comments Sodium Lvl (test code = Sodium Lvl) 141 135-[address] [facility] HospitalHhxiukwGNTHCKSEHSJE6502-57-24 10:00:00 Test Item Value Reference Range Interpretation Comments Calcium Lvl (test code = Calcium Lvl) 8.1 8.5-10.[address] [facility] HospitalHeoephrMOPSTJHOTXGR0509-45-66 10:00:00 Test Item Value Reference Range Interpretation Comments CO2 (test code = CO2) 26 24-[address] [facility] HospitalUdxlmnkGBGXJUBPRXNG9499-01-67 10:00:00 Test Item Value Reference Range Interpretation Comments Chloride Lvl (test code = Chloride Lvl) 109 95-109 [facility]KymqfyjGUUCUBQYYEGYQ8363-94-02 10:00:00 Test Item Value Reference Range Interpretation Comments FSH (test code = FSH) 33.9 [facility] HospitalEkdllrcMKHDZSASXY4429-25-00 10:00:00 Test Item Value Reference Range Interpretation Comments MPV (test code = MPV) 6.9 7.4-10.4 [facility] HospitalBnfdzqoFLCDFWWXSJ4528-10-92 10:00:00 Test Item Value Reference Range Interpretation Comments Hct (test code = Hct) 28.4 36.0-48.0 [facility] HospitalIzononxPXHZOXLGOC8773-26-83 10:00:00 Test Item Value Reference Range Interpretation Comments Hgb (test code = Hgb) 9.8 12.0-16.0 [facility] HospitalRkojdigAKYNVBOOEQ5371-16-14 10:00:00 Test Item Value Reference Range Interpretation Comments RBC (test code = RBC) 3.15 4.20-5.40 [facility] HospitalHyslatmDVIXZHJMVS4734-56-52 10:00:00 Test Item Value Reference Range Interpretation Comments WBC (test code = WBC) 8.4 3.7-10.4 [facility] HospitalCwynscsIYUCOIHANC3069-28-57 10:00:00 Test Item Value Reference Range Interpretation Comments Platelet (test code = Platelet) 118 133-450 [facility] HospitalGdcykumFBSRKSCUIW7041-09-89 10:00:00 Test Item Value Reference Range Interpretation Comments RDW (test code = RDW) 19.9 11.5-14.5 [facility] HospitalBgfgkydTVWMMAFTCX1481-62-73 10:00:00 Test Item Value Reference Range Interpretation Comments MCHC (test code = MCHC) 34.6 32.0-36.0 [facility] HospitalQyrllezKBXAGAWEAP8896-98-61 10:00:00 Test Item Value Reference Range Interpretation Comments MCH (test code = MCH) 31.2 pg 27.0-31.0 [facility] HospitalRffbvfvUZYHJLYKFM5979-73-41 10:00:00 Test Item Value Reference Range Interpretation Comments MCV (test code = MCV) 90.2 81.0-99.0 [facility] HospitalYqgbefuHQNSWLLHZS6256-55-71 10:00:00 Test Item Value Reference Range Interpretation Comments Monocytes # (test code 0.7 See_Comment [Aut omated message] The = Monocytes #) system which generated this result tra nsmitted reference range : <=0.8. The reference r katie was not used to int erpret this result as normal/abnormal . [facility] HospitalYwkhnxiUUOQUWFXGY9682-33-40 10:00:00 Test Item Value Reference Range Interpretation Comments Lymphocytes # (test code = Lymphocytes 2.2 1.0-5.5 #) [facility] HospitalNzbgadsHLFDYZGRRL3599-39-66 10:00:00 Test Item Value Reference Range Interpretation Comments Eosinophils # (test code 0.1 See_Comment [A utomated message] The = Eosinophils #) system whic h generated this result tra nsmitted reference range : <=0.5. The reference r katie was not used to int erpret this result as normal/abnormal . [facility] HospitalImpacto Tecnologias BJUWJ1125-95-01 09:24:00 Test Item Value Reference Range Interpretation Comments Phosphorus (test code = Phosphorus) 2.5 2.5-4.5 [facility] HospitalCHEM [id number] 09:24:00 Test Item Value Reference Range Interpretation Comments Magnesium Lvl (test code = Magnesium 1.4 1.8-2.4 Lvl) [facility] HospitalMqfslwwTCUYIKTRHZXF9192-00-95 09:24:00 Test Item Value Reference Range Interpretation Comments AGAP (test code = AGAP) 10.1 10.0-20.[address] [facility] HospitalJomadsxZNLTZXJOJUOW9014-49-86 09:24:00 Test Item Value Reference Range Interpretation Comments BUN (test code = BUN) 12 7-[address] [facility] HospitalTvpkkqgAZOEHVRQRPJO8674-08-15 09:24:00 Test Item Value Reference Range Interpretation Comments Glucose Lvl (test code = Glucose Lvl) 103 70-[address] [facility] HospitalAqnwvgoPFELISZAYLCX8506-16-57 09:24:00 Test Item Value Reference Range Interpretation Comments Sodium Lvl (test code = Sodium Lvl) 138 135-[address] [facility] HospitalRjlcjniFMJZTUPPKBVB2683-44-24 09:24:00 Test Item Value Reference Range Interpretation Comments Creatinine Lvl (test code = Creatinine 1.1 0.5-1.4 Lvl) [facility] HospitalDjtolntFVAROCIFRNHJ3581-04-73 09:24:00 Test Item Value Reference Range Interpretation Comments Chloride Lvl (test code = Chloride Lvl) 107 95-[address] [facility] HospitalRhxddnnOODKHFMDOYLI7996-03-73 09:24:00 Test Item Value Reference Range Interpretation Comments Potassium Lvl (test code = Potassium 4.1 3.5-5.1 Lvl) [facility] HospitalPrmulpvQYIIGEGWIOMC1078-70-82 09:24:00 Test Item Value Reference Range Interpretation Comments CO2 (test code = CO2) 25 24-[address] [facility] HospitalTsghcetUAHTWZPARLUF0913-38-69 09:24:00 Test Item Value Reference Range Interpretation Comments Calcium Lvl (test code = Calcium Lvl) 8.3 8.5-10.[address] [facility] HospitalTarvqzqRYPZHFHCCCEX3360-13-32 09:24:00 Test Item Value Reference Range Interpretation Comments eGFR (test code = eGFR) 54 [facility] HospitalDiejzmiIRETSUOENI2806-70-67 09:24:00 Test Item Value Reference Range Interpretation Comments INR (test code = INR) 1.24 0.85-1.17 [facility] HospitalMubjxksUYYFGJYRKN3293-39-12 09:24:00 Test Item Value Reference Range Interpretation Comments PT (test code = PT) 15.5 s 12.0-14.7 [facility] HospitalTusttuvNCOVZHWLZU1001-65-67 09:24:00 Test Item Value Reference Range Interpretation Comments PTT (test code = PTT) 31.2 s 22.9-35.8 [facility] HospitalAhpffrkMAPXOPUGTI0971-48-01 09:24:00 Test Item Value Reference Range Interpretation Comments MPV (test code = MPV) 7.0 7.4-10.4 [facility] HospitalBczdajpYLJQTSZXRD4178-97-12 09:24:00 Test Item Value Reference Range Interpretation Comments RDW (test code = RDW) 19.0 11.5-14.5 [facility] HospitalCvgsmivSLXKSVYRUC6740-41-62 09:24:00 Test Item Value Reference Range Interpretation Comments MCH (test code = MCH) 31.0 pg 27.0-31.0 [facility] HospitalAbrmvomDLULJRYDSL8178-64-88 09:24:00 Test Item Value Reference Range Interpretation Comments MCHC (test code = MCHC) 34.2 32.0-36.0 [facility] HospitalCoilzmvMKZHFHEFCR3520-71-77 09:24:00 Test Item Value Reference Range Interpretation Comments WBC (test code = WBC) 8.6 3.7-10.4 [facility] HospitalTexscnhWPUJCRPEWE6829-85-08 09:24:00 Test Item Value Reference Range Interpretation Comments Platelet (test code = Platelet) 116 133-450 [facility] HospitalEhskxfiQBNFZKHVUF3903-21-92 09:24:00 Test Item Value Reference Range Interpretation Comments Hgb (test code = Hgb) 10.3 12.0-16.0 [facility] HospitalNuqhbibATFTBFBGWY0654-69-76 09:24:00 Test Item Value Reference Range Interpretation Comments RBC (test code = RBC) 3.34 4.20-5.40 [facility] HospitalNdqjlijGGQHCSKLWW5189-71-86 09:24:00 Test Item Value Reference Range Interpretation Comments Hct (test code = Hct) 30.2 36.0-48.0 [facility] HospitalXviilrfCVQHKWXVAG1891-77-74 09:24:00 Test Item Value Reference Range Interpretation Comments MCV (test code = MCV) 90.6 81.0-99.0 [facility] HospitalVqtrdydYYWBGMDBYL5327-73-17 09:24:00 Test Item Value Reference Range Interpretation Comments Basophils # (test code 0.0 See_Comment [Aut omated message] The = Basophils #) system which generated this result tra nsmitted reference range : <=0.2. The reference r katie was not used to int erpret this result as normal/abnormal . [facility] HospitalKqzdbmgLTRKXJKIWP1854-48-72 09:24:00 Test Item Value Reference Range Interpretation Comments Eosinophils # (test code 0.0 See_Comment [A utomated message] The = Eosinophils #) system whic h generated this result tra nsmitted reference range : <=0.5. The reference r katie was not used to int erpret this result as normal/abnormal . [facility] HospitalSwamqvzBQWFBKRJNH6070-93-10 09:24:00 Test Item Value Reference Range Interpretation Comments Lymphocytes # (test code = Lymphocytes 1.3 1.0-5.5 #) [facility] HospitalXywzghpUGUXHMEJQG6782-24-74 09:24:00 Test Item Value Reference Range Interpretation Comments Segs-Bands # (test code = Segs-Bands #) 6.7 1.5-8.1 [facility] HospitalIyqqlpuPWGTQCUVGV8709-83-11 09:24:00 Test Item Value Reference Range Interpretation Comments Monocytes # (test code 0.5 See_Comment [Aut omated message] The = Monocytes #) system which generated this result tra nsmitted reference range : <=0.8. The reference r katie was not used to int erpret this result as normal/abnormal . [facility] HospitalRpjnpfpUZOEMBABOV0194-84-95 09:24:00 Test Item Value Reference Range Interpretation Comments Eosinophils (test code = 0.2 See_Comment [A utomated message] The Eosinophils) system which ge nerated this result tra nsmitted reference range : <=4.0. The reference r katie was not used to int erpret this result as normal/abnormal . [facility] HospitalPldkzocQQAKUGYIWS4651-81-67 09:24:00 Test Item Value Reference Range Interpretation Comments Monocytes (test code = Monocytes) 6.4 2.0-12.0 [facility] HospitalVdhbnxbWBOQLTDQZN7181-53-74 09:24:00 Test Item Value Reference Range Interpretation Comments Basophils (test code = 0.2 See_Comment [Aut omated message] The Basophils) system which ge nerated this result tra nsmitted reference range : <=1.0. The reference r katie was not used to int erpret this result as normal/abnormal . [facility] HospitalFgftwtzBUEAIHHRYH5913-71-04 09:24:00 Test Item Value Reference Range Interpretation Comments Segs (test code = Segs) 77.6 45.0-75.0 [facility] HospitalMfsjtqpVITJGPNLJD3195-95-50 09:24:00 Test Item Value Reference Range Interpretation Comments Lymphocytes (test code = Lymphocytes) 15.6 20.0-40.0 [facility] HospitalImpacto Tecnologias IVNEP0972-52-45 09:24:00 Test Item Value Reference Range Interpretation Comments Phosphorus (test code = Phosphorus) 2.5 2.5-4.5 [facility] HospitalImpact[facility] Tecnologias NCBRV1721-19-47 09:24:00 Test Item Value Reference Range Interpretation Comments Magnesium Lvl (test code = Magnesium 1.4 1.8-2.4 Lvl) [facility] HospitalVoemmroLALFQGRZECHX0986-17-43 09:24:00 Test Item Value Reference Range Interpretation Comments AGAP (test code = AGAP) 10.1 10.0-20.[address] [facility] HospitalTnabvtqCXQPPBFCDMLM4436-03-69 09:24:00 Test Item Value Reference Range Interpretation Comments BUN (test code = BUN) 12 7-[address] [facility] HospitalMagstlgQMMTNDMNBSSL2902-21-36 09:24:00 Test Item Value Reference Range Interpretation Comments Glucose Lvl (test code = Glucose Lvl) 103 70-[address] [facility] HospitalNdpwuedBGTALMYSCUYW5141-51-67 09:24:00 Test Item Value Reference Range Interpretation Comments Sodium Lvl (test code = Sodium Lvl) 138 135-[address] [facility] HospitalTpjltvlRROONEQYHSUQ8077-57-27 09:24:00 Test Item Value Reference Range Interpretation Comments Creatinine Lvl (test code = Creatinine 1.1 0.5-1.4 Lvl) [facility] HospitalHhjndtwHZKIIHGESZFG3639-63-61 09:24:00 Test Item Value Reference Range Interpretation Comments Chloride Lvl (test code = Chloride Lvl) 107 95-[address] [facility] HospitalPueabgdSAUQSYRTWPOY5022-33-35 09:24:00 Test Item Value Reference Range Interpretation Comments Potassium Lvl (test code = Potassium 4.1 3.5-5.1 Lvl) [facility] HospitalQhplflaIHLNCCCJSARV3464-25-98 09:24:00 Test Item Value Reference Range Interpretation Comments CO2 (test code = CO2) 25 24-[address] [facility] HospitalZrzjrizKFTMEWRXWETD0416-07-84 09:24:00 Test Item Value Reference Range Interpretation Comments Calcium Lvl (test code = Calcium Lvl) 8.3 8.5-10.[address] [facility] HospitalOicvbqgVRBWIZDSTWOI2536-26-43 09:24:00 Test Item Value Reference Range Interpretation Comments eGFR (test code = eGFR) 54 [facility] HospitalVsrnfehWXXSBJEISB8338-46-40 09:24:00 Test Item Value Reference Range Interpretation Comments INR (test code = INR) 1.24 0.85-1.17 [facility] HospitalXldjzfjNLUOGZVHXY8926-51-00 09:24:00 Test Item Value Reference Range Interpretation Comments PT (test code = PT) 15.5 s 12.0-14.7 [facility] HospitalFiafmaaLRYUUFYZOU7810-18-75 09:24:00 Test Item Value Reference Range Interpretation Comments PTT (test code = PTT) 31.2 s 22.9-35.8 [facility] HospitalRuaeuzvOIHQFMYZPG0338-99-17 09:24:00 Test Item Value Reference Range Interpretation Comments MPV (test code = MPV) 7.0 7.4-10.4 [facility] HospitalZkkkwedMTXQBFXMZZ8844-80-87 09:24:00 Test Item Value Reference Range Interpretation Comments RDW (test code = RDW) 19.0 11.5-14.5 [facility] HospitalPnacyuaXRSQRNKOYJ5514-77-03 09:24:00 Test Item Value Reference Range Interpretation Comments MCH (test code = MCH) 31.0 pg 27.0-31.0 [facility] HospitalEuabsgoPEUDSPISUI9593-64-86 09:24:00 Test Item Value Reference Range Interpretation Comments MCHC (test code = MCHC) 34.2 32.0-36.0 [facility] HospitalWfgtfxiOWBQCSTLAW7222-09-59 09:24:00 Test Item Value Reference Range Interpretation Comments WBC (test code = WBC) 8.6 3.7-10.4 [facility] [facility]kPGDOHRTUVT8888-11-52 09:24:00 Test Item Value Reference Range Interpretation Comments Platelet (test code = Platelet) 116 133-450 [facility] HospitalRkfzkqpEXXEURQAUP1512-78-44 09:24:00 Test Item Value Reference Range Interpretation Comments Hgb (test code = Hgb) 10.3 12.0-16.0 [facility] HospitalTgeyrsrDEZJARUIZF4015-80-09 09:24:00 Test Item Value Reference Range Interpretation Comments RBC (test code = RBC) 3.34 4.20-5.40 [facility] HospitalSutqyblTWYLUQDKAB4233-47-87 09:24:00 Test Item Value Reference Range Interpretation Comments Hct (test code = Hct) 30.2 36.0-48.0 [facility] HospitalNcsahsaAJFXYQWWVE4458-15-44 09:24:00 Test Item Value Reference Range Interpretation Comments MCV (test code = MCV) 90.6 81.0-99.0 [facility] HospitalRlaqddbSIAEYAMDCS6201-98-08 09:24:00 Test Item Value Reference Range Interpretation Comments Basophils # (test code 0.0 See_Comment [Aut omated message] The = Basophils #) system which generated this result tra nsmitted reference range : <=0.2. The reference r katie was not used to int erpret this result as normal/abnormal . [facility] HospitalDvxsdxmRWNFUSVRTQ6306-43-94 09:24:00 Test Item Value Reference Range Interpretation Comments Eosinophils # (test code 0.0 See_Comment [A utomated message] The = Eosinophils #) system whic h generated this result tra nsmitted reference range : <=0.5. The reference r katie was not used to int erpret this result as normal/abnormal . [facility] HospitalBcczdkyTDGMOQUJYO8801-38-56 09:24:00 Test Item Value Reference Range Interpretation Comments Lymphocytes # (test code = Lymphocytes 1.3 1.0-5.5 #) [facility] HospitalBlbajshQSFUXWFFIJ9003-70-72 09:24:00 Test Item Value Reference Range Interpretation Comments Segs-Bands # (test code = Segs-Bands #) 6.7 1.5-8.1 [facility] HospitalDiqugxwKYQXLYNMVQ7982-91-77 09:24:00 Test Item Value Reference Range Interpretation Comments Monocytes # (test code 0.5 See_Comment [Aut omated message] The = Monocytes #) system which generated this result tra nsmitted reference range : <=0.8. The reference r katie was not used to int erpret this result as normal/abnormal . [facility] HospitalUzzcmcpBZLKLQZFML7014-77-96 09:24:00 Test Item Value Reference Range Interpretation Comments Eosinophils (test code = 0.2 See_Comment [A utomated message] The Eosinophils) system which ge nerated this result tra nsmitted reference range : <=4.0. The reference r katie was not used to int erpret this result as normal/abnormal . [facility] HospitalAcpdnamPFFBGFKUNY7816-85-76 09:24:00 Test Item Value Reference Range Interpretation Comments Monocytes (test code = Monocytes) 6.4 2.0-12.0 [facility] HospitalOfvovzyOPLVEBEIED2087-67-10 09:24:00 Test Item Value Reference Range Interpretation Comments Basophils (test code = 0.2 See_Comment [Aut omated message] The Basophils) system which ge nerated this result tra nsmitted reference range : <=1.0. The reference r katie was not used to int erpret this result as normal/abnormal . [facility] HospitalEasdqojSLTUFYGURP0161-77-82 09:24:00 Test Item Value Reference Range Interpretation Comments Segs (test code = Segs) 77.6 45.0-75.0 [facility] HospitalPezyyjjUXCQDYCAWU7576-83-84 09:24:00 Test Item Value Reference Range Interpretation Comments Lymphocytes (test code = Lymphocytes) 15.6 20.0-40.0 [facility]2014-08-14 09:24:00 Test Item Value Reference Range Interpretation Comments Phosphorus (test code = Phosphorus) 2.5 2.5-4.5 [facility] WGBIU5042-77-81 09:24:00 Test Item Value Reference Range Interpretation Comments Magnesium Lvl (test code = Magnesium 1.4 1.8-2.4 Lvl) [facility] HospitalVqtgritOUNHESHLUIVM7697-78-95 09:24:00 Test Item Value Reference Range Interpretation Comments AGAP (test code = AGAP) 10.1 10.0-20.[address] [facility] HospitalJcaomkfJUHCPGXPQBCC9455-53-51 09:24:00 Test Item Value Reference Range Interpretation Comments BUN (test code = BUN) 12 7-[address] [facility] HospitalHbkshjkXIGIBJFIPSLD7566-19-34 09:24:00 Test Item Value Reference Range Interpretation Comments Glucose Lvl (test code = Glucose Lvl) 103 70-[address] [facility] HospitalBoctegrPQSWWJTBVQLP6687-38-86 09:24:00 Test Item Value Reference Range Interpretation Comments Sodium Lvl (test code = Sodium Lvl) 138 135-[address] [facility] HospitalNukqweuYXFGLFPTKTAO5005-97-96 09:24:00 Test Item Value Reference Range Interpretation Comments Creatinine Lvl (test code = Creatinine 1.1 0.5-1.4 Lvl) [facility] HospitalNgjwoxwNAZTRAIWZSSM8988-55-42 09:24:00 Test Item Value Reference Range Interpretation Comments Chloride Lvl (test code = Chloride Lvl) 107 95-[address] [facility] HospitalYjimwjnWDHQYESRGQAK6645-44-20 09:24:00 Test Item Value Reference Range Interpretation Comments Potassium Lvl (test code = Potassium 4.1 3.5-5.1 Lvl) [facility] HospitalGnxbguiJYECXQKUIWUV6282-90-14 09:24:00 Test Item Value Reference Range Interpretation Comments CO2 (test code = CO2) 25 24-[address] [facility] HospitalBochqvxGPXSEDWBOUDF5165-34-64 09:24:00 Test Item Value Reference Range Interpretation Comments Calcium Lvl (test code = Calcium Lvl) 8.3 8.5-10.[address] [facility] HospitalYuucdlbHPBTWCZECPAN0304-60-05 09:24:00 Test Item Value Reference Range Interpretation Comments eGFR (test code = eGFR) 54 [facility] HospitalQeszmcdTCZANVIIZJ9592-19-82 09:24:00 Test Item Value Reference Range Interpretation Comments INR (test code = INR) 1.24 0.85-1.17 [facility] HospitalXuxadbuQRJQCTOPNI0660-40-51 09:24:00 Test Item Value Reference Range Interpretation Comments PT (test code = PT) 15.5 s 12.0-14.7 [facility] HospitalTefjvtsJKBGLRNVFK7222-66-38 09:24:00 Test Item Value Reference Range Interpretation Comments PTT (test code = PTT) 31.2 s 22.9-35.8 [facility] HospitalZykavekTYQQTTCBAY5179-44-78 09:24:00 Test Item Value Reference Range Interpretation Comments MPV (test code = MPV) 7.0 7.4-10.4 [facility] HospitalYyedhjzEHNCHKXTTH1120-66-62 09:24:00 Test Item Value Reference Range Interpretation Comments RDW (test code = RDW) 19.0 11.5-14.5 [facility] HospitalAovvouyPPEFROGRIA0954-90-83 09:24:00 Test Item Value Reference Range Interpretation Comments MCH (test code = MCH) 31.0 pg 27.0-31.0 [facility] HospitalIjycpvhVAXMLRLNTK4314-16-59 09:24:00 Test Item Value Reference Range Interpretation Comments MCHC (test code = MCHC) 34.2 32.0-36.0 [facility] HospitalUahrgyiAHKCBQGHUY7879-75-06 09:24:00 Test Item Value Reference Range Interpretation Comments WBC (test code = WBC) 8.6 3.7-10.4 [facility] HospitalYrnfqwyCXXKUHPNOX4008-52-29 09:24:00 Test Item Value Reference Range Interpretation Comments Platelet (test code = Platelet) 116 133-450 [facility] HospitalBsrveawYWWMEJRBNA5241-81-68 09:24:00 Test Item Value Reference Range Interpretation Comments Hgb (test code = Hgb) 10.3 12.0-16.0 [facility] HospitalZamflpkCQJAMTQEZQ0711-76-27 09:24:00 Test Item Value Reference Range Interpretation Comments RBC (test code = RBC) 3.34 4.20-5.40 [facility] HospitalQhcmzfaYCFRAXKMAB5866-63-72 09:24:00 Test Item Value Reference Range Interpretation Comments Hct (test code = Hct) 30.2 36.0-48.0 [facility] HospitalCiifrstXJBKLTEVMR0513-47-21 09:24:00 Test Item Value Reference Range Interpretation Comments MCV (test code = MCV) 90.6 81.0-99.0 [facility] HospitalQidubyzFUUYWTWYXZ2833-71-84 09:24:00 Test Item Value Reference Range Interpretation Comments Basophils # (test code 0.0 See_Comment [Aut omated message] The = Basophils #) system which generated this result tra nsmitted reference range : <=0.2. The reference r katie was not used to int erpret this result as normal/abnormal . [facility] HospitalCbneoniYCYQUTQFZL7303-92-07 09:24:00 Test Item Value Reference Range Interpretation Comments Eosinophils # (test code 0.0 See_Comment [A utomated message] The = Eosinophils #) system whic h generated this result tra nsmitted reference range : <=0.5. The reference r katie was not used to int erpret this result as normal/abnormal . [facility] HospitalVxqqymbSSWTTSXQNQ4683-80-96 09:24:00 Test Item Value Reference Range Interpretation Comments Lymphocytes # (test code = Lymphocytes 1.3 1.0-5.5 #) [facility] HospitalChoxniqZYTLRDNTWD3134-65-14 09:24:00 Test Item Value Reference Range Interpretation Comments Segs-Bands # (test code = Segs-Bands #) 6.7 1.5-8.1 [facility] HospitalBeygidvNJVNCMRZUL6508-32-07 09:24:00 Test Item Value Reference Range Interpretation Comments Monocytes # (test code 0.5 See_Comment [Aut omated message] The = Monocytes #) system which generated this result tra nsmitted reference range : <=0.8. The reference r katie was not used to int erpret this result as normal/abnormal . [facility] HospitalPzwptjcYTMMVYSOWM0637-79-95 09:24:00 Test Item Value Reference Range Interpretation Comments Eosinophils (test code = 0.2 See_Comment [A utomated message] The Eosinophils) system which ge nerated this result tra nsmitted reference range : <=4.0. The reference r katie was not used to int erpret this result as normal/abnormal . [facility] HospitalCqttvcwXKLUGBDXMS9660-97-74 09:24:00 Test Item Value Reference Range Interpretation Comments Monocytes (test code = Monocytes) 6.4 2.0-12.0 [facility] HospitalJwkqxyvOGBYNUCYPP8873-66-93 09:24:00 Test Item Value Reference Range Interpretation Comments Basophils (test code = 0.2 See_Comment [Aut omated message] The Basophils) system which ge nerated this result tra nsmitted reference range : <=1.0. The reference r katie was not used to int erpret this result as normal/abnormal . [facility] HospitalSfavrdaZTRLGCIWYI1348-60-26 09:24:00 Test Item Value Reference Range Interpretation Comments Segs (test code = Segs) 77.6 45.0-75.0 [facility] HospitalUjxwussRBFCLZDIHH5860-92-09 09:24:00 Test Item Value Reference Range Interpretation Comments Lymphocytes (test code = Lymphocytes) 15.6 20.0-40.0 [facility]2014-08-14 09:24:00 Test Item Value Reference Range Interpretation Comments Phosphorus (test code = Phosphorus) 2.5 2.5-4.5 [facility] YGDDI3582-92-16 09:24:00 Test Item Value Reference Range Interpretation Comments Magnesium Lvl (test code = Magnesium 1.4 1.8-2.4 Lvl) [facility] HospitalYdjwgauHCYVVCJZSVCJ0489-91-00 09:24:00 Test Item Value Reference Range Interpretation Comments AGAP (test code = AGAP) 10.1 10.0-20.[address] [facility] HospitalNdhtjxnHWJDXJSNODQJ7913-61-82 09:24:00 Test Item Value Reference Range Interpretation Comments BUN (test code = BUN) 12 7-[address] [facility] HospitalGjcsqpaFXIKGAHMPMJT8203-95-13 09:24:00 Test Item Value Reference Range Interpretation Comments Glucose Lvl (test code = Glucose Lvl) 103 70-[address] [facility] HospitalGysdjicXSWFYMPNTMRW9041-15-38 09:24:00 Test Item Value Reference Range Interpretation Comments Sodium Lvl (test code = Sodium Lvl) 138 135-[address] [facility] HospitalIgfegeeYAPKCHDHHVMK7485-62-60 09:24:00 Test Item Value Reference Range Interpretation Comments Creatinine Lvl (test code = Creatinine 1.1 0.5-1.4 Lvl) [facility] HospitalEjbhvftGHGCNPPFDGVS5933-46-60 09:24:00 Test Item Value Reference Range Interpretation Comments Chloride Lvl (test code = Chloride Lvl) 107 95-[address] [facility] HospitalXuopysaSHJGYJEZZNDM2102-22-23 09:24:00 Test Item Value Reference Range Interpretation Comments Potassium Lvl (test code = Potassium 4.1 3.5-5.1 Lvl) [facility] HospitalJaczagvLPWQSCBYTLVV5392-54-99 09:24:00 Test Item Value Reference Range Interpretation Comments CO2 (test code = CO2) 25 24-[address] [facility] HospitalJyuhrdlULNLHKRQICAW8111-31-55 09:24:00 Test Item Value Reference Range Interpretation Comments Calcium Lvl (test code = Calcium Lvl) 8.3 8.5-10.[address] [facility] HospitalFtilyolJUSCLEFWMVOS3771-73-72 09:24:00 Test Item Value Reference Range Interpretation Comments eGFR (test code = eGFR) 54 [facility] HospitalHpkikdgLTVCKDNXNA0866-44-59 09:24:00 Test Item Value Reference Range Interpretation Comments INR (test code = INR) 1.24 0.85-1.17 [facility] HospitalMmvlzcoPEFBNXPTCO9737-23-49 09:24:00 Test Item Value Reference Range Interpretation Comments PT (test code = PT) 15.5 s 12.0-14.7 [facility] HospitalFdmjslmGJVRPTNCFP1279-20-78 09:24:00 Test Item Value Reference Range Interpretation Comments PTT (test code = PTT) 31.2 s 22.9-35.8 [facility] HospitalPleohfwHNFVAQTPRN9456-08-14 09:24:00 Test Item Value Reference Range Interpretation Comments MPV (test code = MPV) 7.0 7.4-10.4 [facility] HospitalYqaosxdBIIFFKTKAN8563-57-11 09:24:00 Test Item Value Reference Range Interpretation Comments RDW (test code = RDW) 19.0 11.5-14.5 [facility] HospitalDojyqxaKZLFQTMJAJ4716-42-93 09:24:00 Test Item Value Reference Range Interpretation Comments MCH (test code = MCH) 31.0 pg 27.0-31.0 [facility] HospitalUcgcrcnESFPKRCIXB0344-66-51 09:24:00 Test Item Value Reference Range Interpretation Comments MCHC (test code = MCHC) 34.2 32.0-36.0 [facility] HospitalAebarozTNOMNRHZTO9634-80-51 09:24:00 Test Item Value Reference Range Interpretation Comments WBC (test code = WBC) 8.6 3.7-10.4 [facility] HospitalMlrwuavYBHERRIQST7742-74-11 09:24:00 Test Item Value Reference Range Interpretation Comments Platelet (test code = Platelet) 116 133-450 [facility] HospitalCrmbfmvRNHFQJQLIT4596-39-02 09:24:00 Test Item Value Reference Range Interpretation Comments Hgb (test code = Hgb) 10.3 12.0-16.0 [facility] HospitalOwvskfwAYGLQBEOEC2276-66-19 09:24:00 Test Item Value Reference Range Interpretation Comments RBC (test code = RBC) 3.34 4.20-5.40 [facility] HospitalLvssbijMNFFQPFVKD0499-51-22 09:24:00 Test Item Value Reference Range Interpretation Comments Hct (test code = Hct) 30.2 36.0-48.0 [facility] HospitalFhelipaYVFTDXTEQP1517-46-23 09:24:00 Test Item Value Reference Range Interpretation Comments MCV (test code = MCV) 90.6 81.0-99.0 [facility] HospitalFugtgrlJKITFUFYSB2423-08-50 09:24:00 Test Item Value Reference Range Interpretation Comments Basophils # (test code 0.0 See_Comment [Aut omated message] The = Basophils #) system which generated this result tra nsmitted reference range : <=0.2. The reference r katie was not used to int erpret this result as normal/abnormal . [facility] HospitalXhoyqazHMSMACDLLL2473-99-15 09:24:00 Test Item Value Reference Range Interpretation Comments Eosinophils # (test code 0.0 See_Comment [A utomated message] The = Eosinophils #) system whic h generated this result tra nsmitted reference range : <=0.5. The reference r katie was not used to int erpret this result as normal/abnormal . [facility] HospitalXsiabrzCFYWTBGPVY8525-19-28 09:24:00 Test Item Value Reference Range Interpretation Comments Lymphocytes # (test code = Lymphocytes 1.3 1.0-5.5 #) [facility] HospitalPuzlgmzSFHQPMOMUZ4863-67-75 09:24:00 Test Item Value Reference Range Interpretation Comments Segs-Bands # (test code = Segs-Bands #) 6.7 1.5-8.1 [facility] HospitalSnsdxtyUJXSHDTLGM4831-52-17 09:24:00 Test Item Value Reference Range Interpretation Comments Monocytes # (test code 0.5 See_Comment [Aut omated message] The = Monocytes #) system which generated this result tra nsmitted reference range : <=0.8. The reference r katie was not used to int erpret this result as normal/abnormal . [facility] HospitalXgdujijSFJDJRZMMH9655-10-15 09:24:00 Test Item Value Reference Range Interpretation Comments Eosinophils (test code = 0.2 See_Comment [A utomated message] The Eosinophils) system which ge nerated this result tra nsmitted reference range : <=4.0. The reference r katie was not used to int erpret this result as normal/abnormal . [facility] HospitalSfegjtyZUXRMFIJGL0816-10-60 09:24:00 Test Item Value Reference Range Interpretation Comments Monocytes (test code = Monocytes) 6.4 2.0-12.0 [facility] HospitalExkchomONXWBXSHGF9997-60-77 09:24:00 Test Item Value Reference Range Interpretation Comments Basophils (test code = 0.2 See_Comment [Aut omated message] The Basophils) system which ge nerated this result tra nsmitted reference range : <=1.0. The reference r katie was not used to int erpret this result as normal/abnormal . [facility] HospitalWztzyaiBGSECXUQHE0883-95-88 09:24:00 Test Item Value Reference Range Interpretation Comments Segs (test code = Segs) 77.6 45.0-75.0 [facility] HospitalQkiuwbdRERYPWAGTN4228-67-03 09:24:00 Test Item Value Reference Range Interpretation Comments Lymphocytes (test code = Lymphocytes) 15.6 20.0-40.0 [facility]2014-08-14 09:24:00 Test Item Value Reference Range Interpretation Comments Phosphorus (test code = Phosphorus) 2.5 2.5-4.5 [facility]2014-08-14 09:24:00 Test Item Value Reference Range Interpretation Comments Magnesium Lvl (test code = Magnesium 1.4 1.8-2.4 Lvl) [facility] HospitalWtivucqXNVFORCRXFFF1063-03-63 09:24:00 Test Item Value Reference Range Interpretation Comments AGAP (test code = AGAP) 10.1 10.0-20.[address] [facility] HospitalCmzkqgvRXAJOKGEHNUQ5730-23-47 09:24:00 Test Item Value Reference Range Interpretation Comments BUN (test code = BUN) 12 7-[address] [facility] HospitalKvupukwKKJVWBNHRCAN1629-24-05 09:24:00 Test Item Value Reference Range Interpretation Comments Glucose Lvl (test code = Glucose Lvl) 103 70-[address] [facility] HospitalBlugddjGDTYOPKIRNCI2791-21-37 09:24:00 Test Item Value Reference Range Interpretation Comments Sodium Lvl (test code = Sodium Lvl) 138 135-[address] [facility] HospitalEpywxotARPZXCCJSFJY2941-23-37 09:24:00 Test Item Value Reference Range Interpretation Comments Creatinine Lvl (test code = Creatinine 1.1 0.5-1.4 Lvl) [facility] HospitalTlabnslPBTCCHLMONXK0177-51-27 09:24:00 Test Item Value Reference Range Interpretation Comments Chloride Lvl (test code = Chloride Lvl) 107 95-[address] [facility] HospitalJmydweiDBMTNMQVVKPU0887-24-31 09:24:00 Test Item Value Reference Range Interpretation Comments Potassium Lvl (test code = Potassium 4.1 3.5-5.1 Lvl) [facility] HospitalSpthbbhXTQVSCHZZJFB1375-75-85 09:24:00 Test Item Value Reference Range Interpretation Comments CO2 (test code = CO2) 25 24-[address] [facility] HospitalXlkwrniKOAWCPSCJCHV8603-97-15 09:24:00 Test Item Value Reference Range Interpretation Comments Calcium Lvl (test code = Calcium Lvl) 8.3 8.5-10.[address] [facility] HospitalBbtqytpFHCQIMBHHOYP5022-31-05 09:24:00 Test Item Value Reference Range Interpretation Comments eGFR (test code = eGFR) 54 [facility] HospitalLjmqtafGYJCGAIYFD0830-01-46 09:24:00 Test Item Value Reference Range Interpretation Comments INR (test code = INR) 1.24 0.85-1.17 [facility] HospitalIqjsdyjBYRNRENXWP8584-38-63 09:24:00 Test Item Value Reference Range Interpretation Comments PT (test code = PT) 15.5 s 12.0-14.7 [facility] HospitalNicbbfgJDRVPMIENH3419-87-92 09:24:00 Test Item Value Reference Range Interpretation Comments PTT (test code = PTT) 31.2 s 22.9-35.8 [facility] HospitalCdjjyygMWTEIXMEGF0859-19-31 09:24:00 Test Item Value Reference Range Interpretation Comments MPV (test code = MPV) 7.0 7.4-10.4 [facility] HospitalOmntgpyHWJTEXNFAB7567-99-68 09:24:00 Test Item Value Reference Range Interpretation Comments RDW (test code = RDW) 19.0 11.5-14.5 [facility] HospitalLmdrjoiMBWMYLGJJQ5034-48-32 09:24:00 Test Item Value Reference Range Interpretation Comments MCH (test code = MCH) 31.0 pg 27.0-31.0 [facility] HospitalFzkbzaoJJLZJKXPEY1250-89-04 09:24:00 Test Item Value Reference Range Interpretation Comments MCHC (test code = MCHC) 34.2 32.0-36.0 [facility] HospitalQfnsbigRDVGUBVXMH0710-44-43 09:24:00 Test Item Value Reference Range Interpretation Comments WBC (test code = WBC) 8.6 3.7-10.4 [facility] HospitalYzrdgitWKEAILJQIM3519-97-35 09:24:00 Test Item Value Reference Range Interpretation Comments Platelet (test code = Platelet) 116 133-450 [facility] HospitalDennqrrYBWKBPDFWS2019-02-30 09:24:00 Test Item Value Reference Range Interpretation Comments Hgb (test code = Hgb) 10.3 12.0-16.0 [facility] HospitalWybosjyPKALFDOBFB0251-42-04 09:24:00 Test Item Value Reference Range Interpretation Comments RBC (test code = RBC) 3.34 4.20-5.40 [facility] HospitalNnmwthpTNQDCKEWZQ9420-37-75 09:24:00 Test Item Value Reference Range Interpretation Comments Hct (test code = Hct) 30.2 36.0-48.0 [facility] HospitalQpbrkwnCAXEONXGBS4496-86-76 09:24:00 Test Item Value Reference Range Interpretation Comments MCV (test code = MCV) 90.6 81.0-99.0 [facility] HospitalBqblerkQVCONTLRVY7372-57-97 09:24:00 Test Item Value Reference Range Interpretation Comments Basophils # (test code 0.0 See_Comment [Aut omated message] The = Basophils #) system which generated this result tra nsmitted reference range : <=0.2. The reference r katie was not used to int erpret this result as normal/abnormal . [facility] HospitalDhyhsbeJGXGGCYJQS8956-34-20 09:24:00 Test Item Value Reference Range Interpretation Comments Eosinophils # (test code 0.0 See_Comment [A utomated message] The = Eosinophils #) system whic h generated this result tra nsmitted reference range : <=0.5. The reference r katie was not used to int erpret this result as normal/abnormal . [facility] HospitalVvdgwnsBKWLKILTJW2625-43-80 09:24:00 Test Item Value Reference Range Interpretation Comments Lymphocytes # (test code = Lymphocytes 1.3 1.0-5.5 #) [facility] HospitalWszmzgzUWXCETHMWD2891-33-96 09:24:00 Test Item Value Reference Range Interpretation Comments Segs-Bands # (test code = Segs-Bands #) 6.7 1.5-8.1 [facility] HospitalPqbytfrBSEHMHTWNT2996-75-94 09:24:00 Test Item Value Reference Range Interpretation Comments Monocytes # (test code 0.5 See_Comment [Aut omated message] The = Monocytes #) system which generated this result tra nsmitted reference range : <=0.8. The reference r katie was not used to int erpret this result as normal/abnormal . [facility] HospitalNlbkunjINTWSLJLQS8951-21-83 09:24:00 Test Item Value Reference Range Interpretation Comments Eosinophils (test code = 0.2 See_Comment [A utomated message] The Eosinophils) system which ge nerated this result tra nsmitted reference range : <=4.0. The reference r katie was not used to int erpret this result as normal/abnormal . [facility] HospitalEkcisqxMJIPNDMOPA8093-45-70 09:24:00 Test Item Value Reference Range Interpretation Comments Monocytes (test code = Monocytes) 6.4 2.0-12.0 [facility] HospitalHsaxdjlOXMNVQXOUQ9770-16-04 09:24:00 Test Item Value Reference Range Interpretation Comments Basophils (test code = 0.2 See_Comment [Aut omated message] The Basophils) system which ge nerated this result tra nsmitted reference range : <=1.0. The reference r katie was not used to int erpret this result as normal/abnormal . [facility] HospitalRpalavpJVRLFFAVOP4165-16-65 09:24:00 Test Item Value Reference Range Interpretation Comments Segs (test code = Segs) 77.6 45.0-75.0 [facility] HospitalNdiodfxLEHCPVQYXV5984-61-55 09:24:00 Test Item Value Reference Range Interpretation Comments Lymphocytes (test code = Lymphocytes) 15.6 20.0-40.0 [facility]2014-08-14 09:24:00 Test Item Value Reference Range Interpretation Comments Phosphorus (test code = Phosphorus) 2.5 2.5-4.5 [facility]2014-08-14 09:24:00 Test Item Value Reference Range Interpretation Comments Magnesium Lvl (test code = Magnesium 1.4 1.8-2.4 Lvl) [id number] 09:24:00 Test Item Value Reference Range Interpretation Comments AGAP (test code = AGAP) 10.1 10.0-20.[address] [facility] HospitalDuykyafVIKJYMHIVPUQ9619-84-90 09:24:00 Test Item Value Reference Range Interpretation Comments BUN (test code = BUN) 12 7-[address] [facility] HospitalCaazgigVFVAJQGCJAKB0710-52-80 09:24:00 Test Item Value Reference Range Interpretation Comments Glucose Lvl (test code = Glucose Lvl) 103 70-[address] [facility] HospitalJxdxlzsCKDORNKVUNBO2326-98-75 09:24:00 Test Item Value Reference Range Interpretation Comments Sodium Lvl (test code = Sodium Lvl) 138 135-[address] [facility] HospitalAocdgqjNRYSNZZEJJJM0539-87-53 09:24:00 Test Item Value Reference Range Interpretation Comments Creatinine Lvl (test code = Creatinine 1.1 0.5-1.4 Lvl) [facility] HospitalKbcqqskPQTVICUHMSAT8771-62-82 09:24:00 Test Item Value Reference Range Interpretation Comments Chloride Lvl (test code = Chloride Lvl) 107 95-[address] [facility] HospitalOxuicokXFFKQKEYIPXX3554-78-74 09:24:00 Test Item Value Reference Range Interpretation Comments Potassium Lvl (test code = Potassium 4.1 3.5-5.1 Lvl) [facility] HospitalCjtbupdAWGYYXZZUHXW4707-68-08 09:24:00 Test Item Value Reference Range Interpretation Comments CO2 (test code = CO2) 25 24-[address] [facility] HospitalZzxwpuoSWAVZQEZYUNV2382-05-25 09:24:00 Test Item Value Reference Range Interpretation Comments Calcium Lvl (test code = Calcium Lvl) 8.3 8.5-10.[address] [facility] HospitalFlyqmiqGWMKAHLVGKFN5275-75-17 09:24:00 Test Item Value Reference Range Interpretation Comments eGFR (test code = eGFR) 54 [facility]WsveblgWEKOQZKBCH6136-16-14 09:24:00 Test Item Value Reference Range Interpretation Comments INR (test code = INR) 1.24 0.85-1.17 [facility] HospitalSbjrlboKUMGKPRVMJ4382-38-11 09:24:00 Test Item Value Reference Range Interpretation Comments PT (test code = PT) 15.5 s 12.0-14.7 [facility] HospitalGlzjrplJNZHVXOSYE0589-43-26 09:24:00 Test Item Value Reference Range Interpretation Comments PTT (test code = PTT) 31.2 s 22.9-35.8 [facility] HospitalBtvdrceUQAKFGIOII8796-65-56 09:24:00 Test Item Value Reference Range Interpretation Comments MPV (test code = MPV) 7.0 7.4-10.4 [facility] HospitalMvjsdcpRZYNPRJGHB1568-23-24 09:24:00 Test Item Value Reference Range Interpretation Comments RDW (test code = RDW) 19.0 11.5-14.5 [facility] HospitalBidipviPBBCMMVUUE1611-77-00 09:24:00 Test Item Value Reference Range Interpretation Comments MCH (test code = MCH) 31.0 pg 27.0-31.0 [facility] HospitalZolxglcUEDYCLHNZK2523-94-44 09:24:00 Test Item Value Reference Range Interpretation Comments MCHC (test code = MCHC) 34.2 32.0-36.0 [facility] HospitalDchqhtvIPXCKKYTTV8899-38-69 09:24:00 Test Item Value Reference Range Interpretation Comments WBC (test code = WBC) 8.6 3.7-10.4 [facility] HospitalZkpzmpzUEUOGLZQBH9784-82-15 09:24:00 Test Item Value Reference Range Interpretation Comments Platelet (test code = Platelet) 116 133-450 [facility] HospitalZevlwlzOEKBTLTDVS0986-75-37 09:24:00 Test Item Value Reference Range Interpretation Comments Hgb (test code = Hgb) 10.3 12.0-16.0 [facility] HospitalViehtzxQPJNDDAAJV3801-91-93 09:24:00 Test Item Value Reference Range Interpretation Comments RBC (test code = RBC) 3.34 4.20-5.40 [facility] HospitalCsfuqbbUVFPLNIMXZ5493-96-23 09:24:00 Test Item Value Reference Range Interpretation Comments Hct (test code = Hct) 30.2 36.0-48.0 [facility] HospitalHcijrygKQZVBBMWPZ9550-74-39 09:24:00 Test Item Value Reference Range Interpretation Comments MCV (test code = MCV) 90.6 81.0-99.0 [facility] HospitalBffstzeSPJXNGROQG5981-77-42 09:24:00 Test Item Value Reference Range Interpretation Comments Basophils # (test code 0.0 See_Comment [Aut omated message] The = Basophils #) system which generated this result tra nsmitted reference range : <=0.2. The reference r katie was not used to int erpret this result as normal/abnormal . [facility] HospitalBovqnzrPNMQPHXKYO8401-91-78 09:24:00 Test Item Value Reference Range Interpretation Comments Eosinophils # (test code 0.0 See_Comment [A utomated message] The = Eosinophils #) system whic h generated this result tra nsmitted reference range : <=0.5. The reference r katie was not used to int erpret this result as normal/abnormal . [facility] HospitalIzigwfnNKVSUFGXAQ4568-01-06 09:24:00 Test Item Value Reference Range Interpretation Comments Lymphocytes # (test code = Lymphocytes 1.3 1.0-5.5 #) [facility] HospitalEmqiuslNRYFKZGDFI7745-11-66 09:24:00 Test Item Value Reference Range Interpretation Comments Segs-Bands # (test code = Segs-Bands #) 6.7 1.5-8.1 [facility] HospitalQuvfajwMPNSKJVHWY7946-03-38 09:24:00 Test Item Value Reference Range Interpretation Comments Monocytes # (test code 0.5 See_Comment [Aut omated message] The = Monocytes #) system which generated this result tra nsmitted reference range : <=0.8. The reference r katie was not used to int erpret this result as normal/abnormal . [facility] HospitalSjwaocxKVVMNGYNIM7314-29-72 09:24:00 Test Item Value Reference Range Interpretation Comments Eosinophils (test code = 0.2 See_Comment [A utomated message] The Eosinophils) system which ge nerated this result tra nsmitted reference range : <=4.0. The reference r katie was not used to int erpret this result as normal/abnormal . [facility] HospitalYpofnhtPTHKAGEYKZ7979-88-37 09:24:00 Test Item Value Reference Range Interpretation Comments Monocytes (test code = Monocytes) 6.4 2.0-12.0 [facility] HospitalMwveenaVGBPHFOISH6578-71-40 09:24:00 Test Item Value Reference Range Interpretation Comments Basophils (test code = 0.2 See_Comment [Aut omated message] The Basophils) system which ge nerated this result tra nsmitted reference range : <=1.0. The reference r katie was not used to int erpret this result as normal/abnormal . [facility] HospitalSsyjjywYKCHXTWNRE9271-22-28 09:24:00 Test Item Value Reference Range Interpretation Comments Segs (test code = Segs) 77.6 45.0-75.0 [facility] HospitalRfwajvdBOEQGWCHZM0582-95-07 09:24:00 Test Item Value Reference Range Interpretation Comments Lymphocytes (test code = Lymphocytes) 15.6 20.0-40.0 [facility] IATCIJE1087-04-75 21:53:00 Test Item Value Reference Range Interpretation Comments RBC product (test code Product available = RBC product) (02/06/14 4:53 PM) [facility] [id number] 21:53:00 Test Item Value Reference Range Interpretation Comments RBC product (test code Product available = RBC product) (02/06/14 4:53 PM) [facility] [id number] 21:53:00 Test Item Value Reference Range Interpretation Comments RBC product (test code Product available = RBC product) (02/06/14 4:53 PM) [facility] [id number] 21:53:00 Test Item Value Reference Range Interpretation Comments RBC product (test code Product available = RBC product) (02/06/14 4:53 PM[facility] [id number] 21:53:00 Test Item Value Reference Range Interpretation Comments RBC product (test code Product available = RBC product) (02/06/14 4:53 PM) [facility] [id number] 21:53:00 Test Item Value Reference Range Interpretation Comments RBC product (test code Product available = RBC product) (02/06/14 4:53 PM) [facility] [id number] 18:45:23 Test Item Value Reference Range Interpretation Comments MRSA by PCR (test Negative 15(02/06/14 1:45 code = MRSA by PCR) PM) [facility] [id number] 18:45:23 Test Item Value Reference Range Interpretation Comments MRSA by PCR (test Negative 15(02/06/14 1:45 code = MRSA by PCR) PM) [facility] [id number] 18:45:23 Test Item Value Reference Range Interpretation Comments MRSA by PCR (test Negative 15(02/06/14 1:45 code = MRSA by PCR) PM) [facility] [id number] 18:45:23 Test Item Value Reference Range Interpretation Comments MRSA by PCR (test Negative 15(02/06/14 1:45 code = MRSA by PCR) PM) [facility] [id number] 18:45:23 Test Item Value Reference Range Interpretation Comments MRSA by PCR (test Negative 15(02/06/14 1:45 code = MRSA by PCR) PM[facility] [id number] 18:45:23 Test Item Value Reference Range Interpretation Comments MRSA by PCR (test Negative 15(02/06/14 1:45 code = MRSA by PCR) PM) [facility] HospitalUuftvwqMBBALQKMLM3280-83-87 18:45:00 Test Item Value Reference Range Interpretation Comments INR (test code = INR) 1.60 0.85-1.17 [facility] HospitalNtqmnjzCPHISMDYGM3414-51-67 18:45:00 Test Item Value Reference Range Interpretation Comments PT (test code = PT) 18.8 s 12.0-14.7 [facility] HospitalFozurzxIYBEBGCDBV5173-21-73 18:45:00 Test Item Value Reference Range Interpretation Comments PTT (test code = PTT) 31.1 s 22.9-35.8 [facility] HospitalUajywaoGECHKQTXOB3344-19-55 18:45:00 Test Item Value Reference Range Interpretation Comments INR (test code = INR) 1.60 0.85-1.17 [facility] HospitalFnrcmumKLOKMXCTEL5570-04-92 18:45:00 Test Item Value Reference Range Interpretation Comments PT (test code = PT) 18.8 s 12.0-14.7 [facility] HospitalXlsjkqbHOYKOZYNAM0201-57-18 18:45:00 Test Item Value Reference Range Interpretation Comments PTT (test code = PTT) 31.1 s 22.9-35.8 [facility] HospitalBhfokxqDORKYGXYGX5466-04-46 18:45:00 Test Item Value Reference Range Interpretation Comments INR (test code = INR) 1.60 0.85-1.17 [facility] HospitalWaxutgdZHIWTGHCOC1146-88-11 18:45:00 Test Item Value Reference Range Interpretation Comments PT (test code = PT) 18.8 s 12.0-14.7 [facility] HospitalItzychvIZYWGVVAAO7191-99-86 18:45:00 Test Item Value Reference Range Interpretation Comments PTT (test code = PTT) 31.1 s 22.9-35.8 [facility] HospitalNkyvoxeNCDOXIOJWV9943-41-91 18:45:00 Test Item Value Reference Range Interpretation Comments INR (test code = INR) 1.60 0.85-1.17 [facility] HospitalWdpojykSJXPJMQZTZ3223-08-97 18:45:00 Test Item Value Reference Range Interpretation Comments PT (test code = PT) 18.8 s 12.0-14.7 [facility] HospitalRlncymfXBRYIVKITW2738-74-90 18:45:00 Test Item Value Reference Range Interpretation Comments PTT (test code = PTT) 31.1 s 22.9-35.8 [facility] HospitalYrsikqsJKCITKKVDP2611-46-91 18:45:00 Test Item Value Reference Range Interpretation Comments INR (test code = INR) 1.60 0.85-1.17 [facility] HospitalNqbfpdySILYRAFZVA3822-19-30 18:45:00 Test Item Value Reference Range Interpretation Comments PT (test code = PT) 18.8 s 12.0-14.7 [facility] HospitalPciwrjyWDKBQFLGGZ0709-25-55 18:45:00 Test Item Value Reference Range Interpretation Comments PTT (test code = PTT) 31.1 s 22.9-35.8 [facility] HospitalYcylnciZCCITBDNED2038-26-98 18:45:00 Test Item Value Reference Range Interpretation Comments INR (test code = INR) 1.60 0.85-1.17 [facility] HospitalJgkjcytQZJPFXQRNP9300-73-68 18:45:00 Test Item Value Reference Range Interpretation Comments PT (test code = PT) 18.8 s 12.0-14.7 [facility] HospitalNtoqajvRVJJBCINTY4906-29-92 18:45:00 Test Item Value Reference Range Interpretation Comments PTT (test code = PTT) 31.1 s 22.9-35.8 [facility] [id number] 12:15:00 Test Item Value Reference Range Interpretation Comments Antibody Scrn (test Negative (02/06/14 7:15 code = Antibody Scrn) AM) [facility] [employer] [id number] 12:15:00 Test Item Value Reference Range Interpretation Comments ABO/Rh (test code = ABO/Rh) [facility] [id number] 12:15:00 Test Item Value Reference Range Interpretation Comments RBC product (test code Product available = RBC product) (02/06/14 7:15 AM) [facility] [employer] [id number] 12:15:00 Test Item Value Reference Range Interpretation Comments Antibody Scrn (test Negative (02/06/14 7:15 code = Antibody Scrn) AM) [facility] [employer] [id number] 12:15:00 Test Item Value Reference Range Interpretation Comments ABO/Rh (test code = ABO/Rh) A POS [facility] BANK [id number] 12:15:00 Test Item Value Reference Range Interpretation Comments RBC product (test code Product available = RBC product) (02/06/14 7:15 AM) [facility] BANK [id number] 12:15:00 Test Item Value Reference Range Interpretation Comments Antibody Scrn (test Negative (02/06/14 7:15 code = Antibody Scrn) AM) [facility] [id number] 12:15:00 Test Item Value Reference Range Interpretation Comments ABO/Rh (test code = ABO/Rh) A POS [facility] [id number] 12:15:00 Test Item Value Reference Range Interpretation Comments RBC product (test code Product available = RBC product) (02/06/14 7:15 AM) [facility] [id number] 12:15:00 Test Item Value Reference Range Interpretation Comments Antibody Scrn (test Negative (02/06/14 7:15 code = Antibody Scrn) AM) [facility] [id number] 12:15:00 Test Item Value Reference Range Interpretation Comments ABO/Rh (test code = ABO/Rh) A POS [facility] [id number] 12:15:00 Test Item Value Reference Range Interpretation Comments RBC product (test code Product available = RBC product) (02/06/14 7:15 AM) [facility] [id number] 12:15:00 Test Item Value Reference Range Interpretation Comments Antibody Scrn (test Negative (02/06/14 7:15 code = Antibody Scrn) AM) [facility] BANK [id number] 12:15:00 Test Item Value Reference Range Interpretation Comments ABO/Rh (test code = ABO/Rh) A POS [facility] BANK [id number] 12:15:00 Test Item Value Reference Range Interpretation Comments RBC product (test code Product available = RBC product) (02/06/14 7:15 AM) [facility] BANK [id number] 12:15:00 Test Item Value Reference Range Interpretation Comments Antibody Scrn (test Negative (02/06/14 7:15 code = Antibody Scrn) AM) [facility] [id number] 12:15:00 Test Item Value Reference Range Interpretation Comments ABO/Rh (test code = ABO/Rh) A POS [facility] [id number] 12:15:00 Test Item Value Reference Range Interpretation Comments RBC product (test code Product available = RBC product) (02/06/14 7:15 AM) [facility] H[id number] 15:23:34 Test Item Value Reference Range Interpretation Comments Plav Effect Plt (test code = Plav 98 Effect Plt) [facility] Hos[id number] 15:23:34 Test Item Value Reference Range Interpretation Comments Plav Effect Plt (test code = Plav 98 Effect Plt) [facility] HospitalTzrxbqsTNGBJDBEZW0765-03-07 15:23:34 Test Item Value Reference Range Interpretation Comments Plav Effect Plt (test code = Plav 98 Effect Plt) [facility] HospitalQmfnmthYZEFJGUFLU2565-12-15 15:23:34 Test Item Value Reference Range Interpretation Comments Plav Effect Plt (test code = Plav 98 Effect Plt) [facility] Hospit[id number] 15:23:34 Test Item Value Reference Range Interpretation Comments Plav Effect Plt (test code = Plav 98 Effect Plt) [facility] HospitalEqmzdnsHFXDVQLOEH2614-34-51 15:23:34 Test Item Value Reference Range Interpretation Comments Plav Effect Plt (test code = Plav 98 Effect Plt) [facility] [id number] 15:23:00 Test Item Value Reference Range Interpretation Comments ABO/Rh (test code = ABO/Rh) A POS [facility] [id number] 15:23:00 Test Item Value Reference Range Interpretation Comments Antibody Scrn (test Negative (02/01/14 10:23 code = Antibody Scrn) AM) [facility] [id number] 15:23:00 Test Item Value Reference Range Interpretation Comments ABO/Rh (test code = ABO/Rh) A POS [facility] [id number] 15:23:00 Test Item Value Reference Range Interpretation Comments Antibody Scrn (test Negative (02/01/14 10:23 code = Antibody Scrn) AM) [facility] [id number] 15:23:00 Test Item Value Reference Range Interpretation Comments ABO/Rh (test code = ABO/Rh) A POS [facility] [id number] 15:23:00 Test Item Value Reference Range Interpretation Comments Antibody Scrn (test Negative (02/01/14 10:23 code = Antibody Scrn) AM) [facility] [id number] 15:23:00 Test Item Value Reference Range Interpretation Comments ABO/Rh (test code = ABO/Rh) A POS [facility] [id number] 15:23:00 Test Item Value Reference Range Interpretation Comments Antibody Scrn (test Negative (02/01/14 10:23 code = Antibody Scrn) AM) [facility] [id number] 15:23:00 Test Item Value Reference Range Interpretation Comments ABO/Rh (test code = ABO/Rh) A [facility] [id number] 15:23:00 Test Item Value Reference Range Interpretation Comments Antibody Scrn (test Negative (02/01/14 10:23 code = Antibody Scrn) AM) [facility] [id number] 15:23:00 Test Item Value Reference Range Interpretation Comments ABO/Rh (test code = ABO/Rh) A [facility] [id number] 15:23:00 Test Item Value Reference Range Interpretation Comments Antibody Scrn (test Negative (02/01/14 10:23 code = Antibody Scrn) AM) [facility] [id number] 15:03:00 Test Item Value Reference Range Interpretation Comments RBC product (test code Product available = RBC product) (02/01/14 10:03 AM) [facility] [id number] 15:03:00 Test Item Value Reference Range Interpretation Comments RBC product (test code Product available = RBC product) (02/01/14 10:03 AM) [facility] [id number] 15:03:00 Test Item Value Reference Range Interpretation Comments RBC product (test code Product available = RBC product) (02/01/14 10:03 AM) [facility] [id number] 15:03:00 Test Item Value Reference Range Interpretation Comments RBC product (test code Product available = RBC product) (02/01/14 10:03 AM) [facility] [id number] 15:03:00 Test Item Value Reference Range Interpretation Comments RBC product (test code Product available = RBC product) (02/01/14 10:03 AM) [facility] [id number] 15:03:00 Test Item Value Reference Range Interpretation Comments RBC product (test code Product available = RBC product) (02/01/14 10:03 AM) [facility] [place] [id number] 19:37:00 Test Item Value Reference Range Interpretation Comments eGFR (test code = eGFR) [address] [facility] [place] [id number] 19:37:00 Test Item Value Reference Range Interpretation Comments POC Creatinine (test code = POC 1.1 0.5-1.4 Creatinine) [facility] [id number] 19:37:00 Test Item Value Reference Range Interpretation Comments eGFR (test code = eGFR) [address] [facility] [place] [id number] 19:37:00 Test Item Value Reference Range Interpretation Comments POC Creatinine (test code = POC 1.1 0.5-1.4 Creatinine) [facility] [place] [id number] 19:37:00 Test Item Value Reference Range Interpretation Comments eGFR (test code = eGFR) [address] [facility] [place] [id number] 19:37:00 Test Item Value Reference Range Interpretation Comments POC Creatinine (test code = POC 1.1 0.5-1.4 Creatinine) [facility] [id number] 19:37:00 Test Item Value Reference Range Interpretation Comments eGFR (test code = eGFR) [address] [facility] [place] [id number] 19:37:00 Test Item Value Reference Range Interpretation Comments POC Creatinine (test code = POC 1.1 0.5-1.4 Creatinine) [facility] [place] [id number] 19:37:00 Test Item Value Reference Range Interpretation Comments eGFR (test code = eGFR) [address] [facility] [place] [id number] 19:37:00 Test Item Value Reference Range Interpretation Comments POC Creatinine (test code = POC 1.1 0.5-1.4 Creatinine) [facility] [place] [id number] 19:37:00 Test Item Value Reference Range Interpretation Comments eGFR (test code = eGFR) [facility] [id number] 19:37:00 Test Item Value Reference Range Interpretation Comments POC Creatinine (test code = POC 1.1 0.5-1.4 Creatinine) [facility] GLUCOSE [id number] 16:57:00 Test Item Value Reference Range Interpretation Comments Gluc POC Lifscn (test code = Gluc POC 193 70-99 H Lifscn) [facility] GLUCOSE [id number] 16:57:00 Test Item Value Reference Range Interpretation Comments Comment1 (test code = Comment1) Notify RN/MD [facility] GLUCOSE [id number] 16:57:00 Test Item Value Reference Range Interpretation Comments Gluc POC Lifscn (test code = Gluc POC 193 70-99 H Lifscn) [facility] GLUCOSE [id number] 16:57:00 Test Item Value Reference Range Interpretation Comments Comment1 (test code = Comment1) Notify RN/ [facility] GLUCOSE [id number] 16:57:00 Test Item Value Reference Range Interpretation Comments Gluc POC Lifscn (test code = Gluc POC 193 70-99 H Lifscn) [facility] GLUCOSE [id number] 16:57:00 Test Item Value Reference Range Interpretation Comments Comment1 (test code = Comment1) Notify RN/ [facility] GLUCOSE [id number] 16:57:00 Test Item Value Reference Range Interpretation Comments Gluc POC Lifscn (test code = Gluc POC 193 70-99 H Lifscn) [facility] GLUCOSE [id number] 16:57:00 Test Item Value Reference Range Interpretation Comments Comment1 (test code = Comment1) Notify RN/MD [facility] GLUCOSE [id number] 16:57:00 Test Item Value Reference Range Interpretation Comments Gluc POC Lifscn (test code = Gluc POC 193 70-99 H Lifscn) [facility] GLUCOSE [id number] 16:57:00 Test Item Value Reference Range Interpretation Comments Comment1 (test code = Comment1) Notify RN/ [facility] GLUCOSE [id number] 16:57:00 Test Item Value Reference Range Interpretation Comments Gluc POC Lifscn (test code = Gluc POC 193 70-99 H Lifscn) [facility] GLUCOSE [id number] 16:57:00 Test Item Value Reference Range Interpretation Comments Comment1 (test code = Comment1) Notify RN/ [facility] GLUCOSE [id number] 12:14:00 Test Item Value Reference Range Interpretation Comments Gluc POC Lif[facility]n (test code = Gluc POC 138 70-99 H Lifscn) [facility] GLUCOSE [id number] 12:14:00 Test Item Value Reference Range Interpretation Comments Comment1 (test code = Comment1) Notify RN/MD [facility] GLUCOSE [id number] 12:14:00 Test Item Value Reference Range Interpretation Comments Gluc POC Lifscn (test code = Gluc POC 138 70-99 H Lifscn) [facility] GLUCOSE [id number] 12:14:00 Test Item Value Reference Range Interpretation Comments Comment1 (test code = Comment1) Notify RN/ [facility] GLUCOSE [id number] 12:14:00 Test Item Value Reference Range Interpretation Comments Gluc POC Lifscn (test code = Gluc POC 138 70-99 H Lifscn) [facility] GLUCOSE [id number] 12:14:00 Test Item Value Reference Range Interpretation Comments Comment1 (test code = Comment1) Notify RN/ [facility] GLUCOSE [id number] 12:14:00 Test Item Value Reference Range Interpretation Comments Gluc POC Lifscn (test code = Gluc POC 138 70-99 H Lifscn) [facility] GLUCOSE [id number] 12:14:00 Test Item Value Reference Range Interpretation Comments Comment1 (test code = Comment1) Notify RN/ [facility] GLUCOSE [id number] 12:14:00 Test Item Value Reference Range Interpretation Comments Gluc POC Lifscn (test code = Gluc POC 138 70-99 H Lifscn) [facility] GLUCOSE [id number] 12:14:00 Test Item Value Reference Range Interpretation Comments Comment1 (test code = Comment1) Notify RN/ [facility] GLUCOSE [id number] 12:14:00 Test Item Value Reference Range Interpretation Comments Gluc POC Lifscn (test code = Gluc POC 138 70-99 H Lifscn) [facility] GLUCOSE [id number] 12:14:00 Test Item Value Reference Range Interpretation Comments Comment1 (test code = Comment1) Notify RN/ [facility] GLUCOSE [id number] 01:24:00 Test Item Value Reference Range Interpretation Comments Comment1 (test code = Comment1) Notify RN/ [facility] GLUCOSE [id number] 01:24:00 Test Item Value Reference Range Interpretation Comments Gluc POC Lifscn (test code = Gluc POC 182 70-99 H Lifscn) [facility] GLUCOSE [id number] 01:24:00 Test Item Value Reference Range Interpretation Comments Comment2 (test code = Assess Patient Comment2) [facility] GLUCOSE [id number] 01:24:00 Test Item Value Reference Range Interpretation Comments Comment1 (test code = Comment1) Notify RN/ [facility] GLUCOSE [id number] 01:24:00 Test Item Value Reference Range Interpretation Comments Gluc POC Lifscn (test code = Gluc POC 182 70-99 H Lifscn) [facility] GLUCOSE [id number] 01:24:00 Test Item Value Reference Range Interpretation Comments Comment2 (test code = Assess Patient Comment2) [facility] GLUCOSE [id number] 01:24:00 Test Item Value Reference Range Interpretation Comments Comment1 (test code = Comment1) Notify RN/ [facility] GLUCOSE [id number] 01:24:00 Test Item Value Reference Range Interpretation Comments Gluc POC Lifscn (test code = Gluc POC 182 70-99 H Lifscn) [facility] GLUCOSE [id number] 01:24:00 Test Item Value Reference Range Interpretation Comments Comment2 (test code = Assess Patient Comment2) [facility] GLUCOSE [id number] 01:24:00 Test Item Value Reference Range Interpretation Comments Comment1 (test code = Comment1) Notify RN/ [facility] GLUCOSE [id number] 01:24:00 Test Item Value Reference Range Interpretation Comments Gluc POC Lifscn (test code = Gluc POC 182 70-99 H Lifscn) [facility] GLUCOSE [id number] 01:24:00 Test Item Value Reference Range Interpretation Comments Comment2 (test code = Assess Patient Comment2) [facility] GLUCOSE [id number] 01:24:00 Test Item Value Reference Range Interpretation Comments Comment1 (test code = Comment1) Notify RN/ [facility] GLUCOSE [id number] 01:24:00 Test Item Value Reference Range Interpretation Comments Gluc POC Lifscn (test code = Gluc POC 182 70-99 H Lifscn) [facility] GLUCOSE [id number] 01:24:00 Test Item Value Reference Range Interpretation Comments Comment2 (test code = Assess Patient Comment2) [facility] GLUCOSE [id number] 01:24:00 Test Item Value Reference Range Interpretation Comments Comment1 (test code = Comment1) Notify RN/ [facility] GLUCOSE [id number] 01:24:00 Test Item Value Reference Range Interpretation Comments Gluc POC Lif[facility]n (test code = Gluc POC 182 70-99 H Lifscn) [facility] GLUCOSE [id number] 01:24:00 Test Item Value Reference Range Interpretation Comments Comment2 (test code = Assess [facility] Comment2) [facility]ol[facility]PNZZAPYP0052[facility] 10:40:00 Test Item Value Reference Range Interpretation Comments Trig (test code = Trig) 255 H [facility] CenterKyqcaxqMAPJEXCFC1959-10-25 10:40:00 Test Item Value Reference Range Interpretation Comments HDL (test code = HDL) [facility]XvzzokvLQIZGNHGJ9199-28-26 10:40:00 Test Item Value Reference Range Interpretation Comments CHD Risk (test code = CHD Risk) 4.38 3.90-5.[address] [facility]EnstjppRSLKVLSYW9121-46-35 10:40:00 Test Item Value Reference Range Interpretation Comments Chol (test code = Chol) 171 N [facility] HospitalFzpcfvuDONIKUVYN4165-60-57 10:40:00 Test Item Value Reference Range Interpretation Comments LDL (test code = LDL) 81 N [facility]ouzqrbXWRLZMAVH0708-57-96 10:40:00 Test Item Value Reference Range Interpretation Comments Trig (test code = Trig) 255 H [facility] CenterAkaqjqeFVWQXTROH8870-28-34 10:40:00 Test Item Value Reference Range Interpretation Comments HDL (test code = HDL) 39 L [facility] CenterKgopkdcHYHCDANCH7073-88-09 10:40:00 Test Item Value Reference Range Interpretation Comments CHD Risk (test code = CHD Risk) 4.38 3.90-5.80 N [facility] CenterPhpmykkIUOTVDWJL4905-27-44 10:40:00 Test Item Value Reference Range Interpretation Comments Chol (test code = Chol) 171 N [facility] CenterWssucxjUDTIYZZQP7877-98-86 10:40:00 Test Item Value Reference Range Interpretation Comments LDL (test code = LDL) 81 N [facility] CenterFvttmngRMPPBYBGM5050-61-41 10:40:00 Test Item Value Reference Range Interpretation Comments Trig (test code = Trig) 255 H [facility] CenterMhwtjpwGJKDCDGQL3227-71-88 10:40:00 Test Item Value Reference Range Interpretation Comments HDL (test code = HDL) 39 L [facility] CenterDewfsacBHFLQFZNM4613-64-68 10:40:00 Test Item Value Reference Range Interpretation Comments CHD Risk (test code = CHD Risk) 4.38 3.90-5.80 N [facility] CenterUdghfbsDEUCBRFJF9849-97-63 10:40:00 Test Item Value Reference Range Interpretation Comments Chol (test code = Chol) 171 N [facility] CenterDvilmifHYTIJUHLV1008-77-18 10:40:00 Test Item Value Reference Range Interpretation Comments LDL (test code = LDL) 81 N [facility] CenterNctmhftCZEFNIUDK8864-34-93 10:40:00 Test Item Value Reference Range Interpretation Comments Trig (test code = Trig) 255 H [facility] CenterRiosgioLJUJBWTUI6164-20-14 10:40:00 Test Item Value Reference Range Interpretation Comments HDL (test code = HDL) 39 L [facility] CenterQryjgblLBHHNBPIZ7975-57-06 10:40:00 Test Item Value Reference Range Interpretation Comments CHD Risk (test code = CHD Risk) 4.38 3.90-5.80 N [facility] CenterYycympkGNLJSYMLJ7622-48-81 10:40:00 Test Item Value Reference Range Interpretation Comments Chol (test code = Chol) 171 N [facility] CenterPnlndsfRTXPZTBZI5976-29-87 10:40:00 Test Item Value Reference Range Interpretation Comments LDL (test code = LDL) 81 N [facility] CenterAfjiezdWVPCCWMET2184-79-02 10:40:00 Test Item Value Reference Range Interpretation Comments Trig (test code = Trig) 255 H [facility]UityalgHTBJKFFUD2999-50-65 10:40:00 Test Item Value Reference Range Interpretation Comments HDL (test code = HDL) 39 L [facility] ArlingtonSilwcidCMTCMBXBD4098-62-51 10:40:00 Test Item Value Reference Range Interpretation Comments CHD Risk (test code = CHD Risk) 4.38 3.90-5.80 N [facility] ArlingtonOnmmymdAQVLZECTZ0995-62-72 10:40:00 Test Item Value Reference Range Interpretation Comments Chol (test code = Chol) 171 N [facility] ArlingtonKtrvbpwLLFSDEAXG8802-77-68 10:40:00 Test Item Value Reference Range Interpretation Comments LDL (test code = LDL) 81 N [facility] ArlingtonOqsylcpLLGAYDMVK4956-41-00 10:40:00 Test Item Value Reference Range Interpretation Comments Trig (test code = Trig) 255 H [facility] CenterMorehppMXQHESKCV2963-66-84 10:40:00 Test Item Value Reference Range Interpretation Comments HDL (test code = HDL) 39 L [facility] ArlingtonCfwacfnWUMXOCZEA2100-48-53 10:40:00 Test Item Value Reference Range Interpretation Comments CHD Risk (test code = CHD Risk) 4.38 3.90-5.80 N [facility] ArlingtonMxzypvnKNRWJQUUF9925-76-39 10:40:00 Test Item Value Reference Range Interpretation Comments Chol (test code = Chol) 171 N [facility] ArlingtonZqiooxwRDXTMLVJT8639-26-80 10:40:00 Test Item Value Reference Range Interpretation Comments LDL (test code = LDL) 81 N [facility] GLUCOSE [id number] 01:51:00 Test Item Value Reference Range Interpretation Comments Comment2 (test code = Assess Patient Comment2) [facility] [id number] 01:51:00 Test Item Value Reference Range Interpretation Comments Comment2 (test code = Assess Patient Comment2) [facility] [id number] 01:51:00 Test Item Value Reference Range Interpretation Comments Comment2 (test code = Assess Patient Comment2) [facility] [id number] 01:51:00 Test Item Value Reference Range Interpretation Comments Comment2 (test code = Assess Patient Comment2) [facility] [id number] 01:51:00 Test Item Value Reference Range Interpretation Comments Comment2 (test code = Assess Patient Comment2) [facility] GLUCOSE [id number] 01:51:00 Test Item Value Reference Range Interpretation Comments Comment2 (test code = Assess Patient Comment2) [facility] GLUCOSE [id number] 16:28:00 Test Item Value Reference Range Interpretation Comments Comment2 (test code = Assess Patient Comment2) [facility] GLUCOSE [id number] 16:28:00 Test Item Value Reference Range Interpretation Comments Comment2 (test code = Assess Patient Comment2) [facility] GLUCOSE [id number] 16:28:00 Test Item Value Reference Range Interpretation Comments Comment2 (test code = Assess Patient Comment2) [facility] GLUCOSE [id number] 16:28:00 Test Item Value Reference Range Interpretation Comments Comment2 (test code = Assess Patient Comment2) [facility] GLUCOSE [id number] 16:28:00 Test Item Value Reference Range Interpretation Comments Comment2 (test code = Assess Patient Comment2) [facility] GLUCOSE [id number] 16:28:00 Test Item Value Reference Range Interpretation Comments Comment2 (test code = Assess Patient Comment2) [facility] CenterTiozoreGIPZQVLGJ4224-44-16 07:45:00 Test Item Value Reference Range Interpretation Comments Phosphorus (test code = Phosphorus) 3.2 2.5-4.5 N [facility] CenterWpdbnqbRIPBFKOUL1017-59-17 07:45:00 Test Item Value Reference Range Interpretation Comments Magnesium Lvl (test code = Magnesium 2.0 1.8-2.4 N Lvl) [facility] CenterIaeifupALSNPFINS3233-65-54 07:45:00 Test Item Value Reference Range Interpretation Comments eGFR (test code = eGFR) 55 [facility] CenterPdbabfrPLCEEYJXX6507-45-70 07:45:00 Test Item Value Reference Range Interpretation Comments Glucose Lvl (test code = Glucose Lvl) 98 70-99 N [facility] CenterXgumopmXVALSNIHD4839-06-68 07:45:00 Test Item Value Reference Range Interpretation Comments Creatinine Lvl (test code = Creatinine 1.1 0.5-1.4 N Lvl) [facility] CenterBydubscMBSAKFZJC0587-33-45 07:45:00 Test Item Value Reference Range Interpretation Comments Sodium Lvl (test code = Sodium Lvl) 137 135-145 N [facility] CenterEizugoyVLLWETBCI1713-02-60 07:45:00 Test Item Value Reference Range Interpretation Comments BUN (test code = BUN) 24 7-22 H [facility] CenterUhgmujfGSEFEHVGB7380-87-86 07:45:00 Test Item Value Reference Range Interpretation Comments Calcium Lvl (test code = Calcium Lvl) 8.2 8.5-10.5 L [facility] CenterXzrsaufDKVGZJQSJ8219-59-11 07:45:00 Test Item Value Reference Range Interpretation Comments AGAP (test code = AGAP) 14.2 10.0-20.0 N [facility] CenterMhqppwcFSGXZDIXP5816-00-39 07:45:00 Test Item Value Reference Range Interpretation Comments Chloride Lvl (test code = Chloride Lvl) 94 95-109 L [facility] CenterKwavuinEBTYADCWL7785-38-55 07:45:00 Test Item Value Reference Range Interpretation Comments CO2 (test code = CO2) 32 24-32 N [facility] CenterOqmlhkcUCZLWSFJZ9828-36-09 07:45:00 Test Item Value Reference Range Interpretation Comments Potassium Lvl (test code = Potassium 3.2 3.5-5.1 L Lvl) [facility]SzospnzCQGWYSYHVA8615-83-78 07:45:00 Test Item Value Reference Range Interpretation Comments Basophils # (test code 0.0 See_Comment N [Aut omated message] The = Basophils #) system which generated this result tra nsmitted reference range : <=0.2. The reference r katie was not used to int erpret this result as normal/abnormal . [facility] HospitalDwlksanUOOPOHGQWY0835-85-65 07:45:00 Test Item Value Reference Range Interpretation Comments Eosinophils # (test code 0.0 See_Comment N [A utomated message] The = Eosinophils #) system whic h generated this result tra nsmitted reference range : <=0.5. The reference r katie was not used to int erpret this result as normal/abnormal . [facility] HospitalBzbhmyrMAYSLROYXY1807-65-98 07:45:00 Test Item Value Reference Range Interpretation Comments Monocytes # (test code 0.6 See_Comment N [Aut omated message] The = Monocytes #) system which generated this result tra nsmitted reference range : <=0.8. The reference r katie was not used to int erpret this result as normal/abnormal . [facility] HospitalKlwtxodXRFQACEIUX0796-59-81 07:45:00 Test Item Value Reference Range Interpretation Comments Lymphocytes # (test code = Lymphocytes 1.3 1.0-5.5 N #) [facility] HospitalVtduxegXYNSWLFXCF4384-68-11 07:45:00 Test Item Value Reference Range Interpretation Comments Basophils (test code = 0.0 See_Comment N [Aut omated message] The Basophils) system which ge nerated this result tra nsmitted reference range : <=1.0. The reference r katie was not used to int erpret this result as normal/abnormal . [facility] HospitalUptjvalBHYCAZYPJI5415-72-45 07:45:00 Test Item Value Reference Range Interpretation Comments Segs-Bands # (test code = Segs-Bands #) 12.6 1.5-8.1 H [facility] HospitalDjizswqDPJUZLXHBF7228-34-76 07:45:00 Test Item Value Reference Range Interpretation Comments Monocytes (test code = Monocytes) 4.4 2.0-12.0 N [facility] HospitalBemuyvfDFFTDPMQXV1059-55-79 07:45:00 Test Item Value Reference Range Interpretation Comments Eosinophils (test code = 0.0 See_Comment N [A utomated message] The Eosinophils) system which ge nerated this result tra nsmitted reference range : <=4.0. The reference r katie was not used to int erpret this result as normal/abnormal . [facility] HospitalJcdmtvqKCCRCKZUQQ8587-86-16 07:45:00 Test Item Value Reference Range Interpretation Comments Segs (test code = Segs) 86.5 45.0-75.0 H [facility] HospitalRmivadqKTSQUIPKYM2927-78-06 07:45:00 Test Item Value Reference Range Interpretation Comments Lymphocytes (test code = Lymphocytes) 9.1 20.0-40.0 L [facility] HospitalPtwlsarTXZVRZPUIT3080-38-69 07:45:00 Test Item Value Reference Range Interpretation Comments MCV (test code = MCV) 92.9 81.0-99.0 N [facility] HospitalFqjwqlpPIXXSHIXRV3295-85-71 07:45:00 Test Item Value Reference Range Interpretation Comments MCH (test code = MCH) 32.0 pg 27.0-31.0 H [facility] HospitalDjzslzhTIEYQZAKKQ6364-49-81 07:45:00 Test Item Value Reference Range Interpretation Comments Hct (test code = Hct) 29.0 36.0-48.0 L [facility] HospitalXugumsnMBKEXBBBAW2893-08-51 07:45:00 Test Item Value Reference Range Interpretation Comments Hgb (test code = Hgb) 10.0 12.0-16.0 L [facility] HospitalFclflkhHNVMUOBERH8962-89-01 07:45:00 Test Item Value Reference Range Interpretation Comments Platelet (test code = Platelet) 286 133-450 N [facility] HospitalLcdjjguQAAWXDTNVY0029-62-51 07:45:00 Test Item Value Reference Range Interpretation Comments MPV (test code = MPV) 7.2 7.4-10.4 L [facility] HospitalErxrywiWCCDTWUZSS8711-60-86 07:45:00 Test Item Value Reference Range Interpretation Comments RDW (test code = RDW) 16.8 11.5-14.5 H [facility] HospitalUdajmqfKAZAMJSJKN3791-27-00 07:45:00 Test Item Value Reference Range Interpretation Comments MCHC (test code = MCHC) 34.5 32.0-36.0 N [facility] HospitalXpqnjodOIWGJOTAUS7471-45-07 07:45:00 Test Item Value Reference Range Interpretation Comments RBC (test code = RBC) 3.12 4.20-5.40 L [facility] HospitalDydcrozIKVSELZJLR9377-77-09 07:45:00 Test Item Value Reference Range Interpretation Comments WBC (test code = WBC) 14.5 3.7-10.[address] [facility] HospitalNkofwxiHNUYOVFYXQ6010-97-43 07:45:00 Test Item Value Reference Range Interpretation Comments Prealbumin (test code = Prealbumin) 16.1 18.0-45.0 L [facility] CenterUlvfjanMQQFCOMRC9189-45-78 07:45:00 Test Item Value Reference Range Interpretation Comments Phosphorus (test code = Phosphorus) 3.2 2.5-4.5 N [facility] CenterRqbrbewEVRQSGIIG6029-15-99 07:45:00 Test Item Value Reference Range Interpretation Comments Magnesium Lvl (test code = Magnesium 2.0 1.8-2.4 N Lvl) [facility] CenterHpfiiciWJLQXVHBD5091-96-45 07:45:00 Test Item Value Reference Range Interpretation Comments eGFR (test code = eGFR) 55 [facility] CenterMtbvzprICWOCBHXT0355-68-40 07:45:00 Test Item Value Reference Range Interpretation Comments Glucose Lvl (test code = Glucose Lvl) 98 70-99 N [facility] CenterUumgkrfOLVQDDBWX8687-16-62 07:45:00 Test Item Value Reference Range Interpretation Comments Creatinine Lvl (test code = Creatinine 1.1 0.5-1.4 N Lvl) [facility] CenterMuyeurjQFYMCZBTU6652-19-87 07:45:00 Test Item Value Reference Range Interpretation Comments Sodium Lvl (test code = Sodium Lvl) 137 135-145 N [facility] CenterUchkfcxXMZWSAXDN0904-10-00 07:45:00 Test Item Value Reference Range Interpretation Comments BUN (test code = BUN) 24 7-22 H [facility] CenterAbmmheiLKEFMLVAC2420-20-04 07:45:00 Test Item Value Reference Range Interpretation Comments Calcium Lvl (test code = Calcium Lvl) 8.2 8.5-10.5 L [facility] CenterCdfhunsKTHTHRQUG8342-29-09 07:45:00 Test Item Value Reference Range Interpretation Comments AGAP (test code = AGAP) 14.2 10.0-20.0 N [facility] CenterEcdgrttHCXLJFROS3481-01-63 07:45:00 Test Item Value Reference Range Interpretation Comments Chloride Lvl (test code = Chloride Lvl) 94 95-109 L [facility] CenterRushccxPVBSCNGFK8141-97-28 07:45:00 Test Item Value Reference Range Interpretation Comments CO2 (test code = CO2) 32 24-32 N [facility] CenterDlvywpnCBUGQHAQN9550-07-07 07:45:00 Test Item Value Reference Range Interpretation Comments Potassium Lvl (test code = Potassium 3.2 3.5-5.1 L Lvl) [facility] HospitalMackftlUYPLSEQYIR1493-69-73 07:45:00 Test Item Value Reference Range Interpretation Comments Basophils # (test code 0.0 See_Comment N [Aut omated message] The = Basophils #) system which generated this result tra nsmitted reference range : <=0.2. The reference r katie was not used to int erpret this result as normal/abnormal . [facility] HospitalOrxwdvdBUWQREPNTN1076-80-31 07:45:00 Test Item Value Reference Range Interpretation Comments Eosinophils # (test code 0.0 See_Comment N [A utomated message] The = Eosinophils #) system whic h generated this result tra nsmitted reference range : <=0.5. The reference r katie was not used to int erpret this result as normal/abnormal . [facility] HospitalWgaiauyCIZTIYBUDL2537-53-26 07:45:00 Test Item Value Reference Range Interpretation Comments Monocytes # (test code 0.6 See_Comment N [Aut omated message] The = Monocytes #) system which generated this result tra nsmitted reference range : <=0.8. The reference r katie was not used to int erpret this result as normal/abnormal . [facility] HospitalEhhdqbvDEZEPNHNPR4933-84-18 07:45:00 Test Item Value Reference Range Interpretation Comments Lymphocytes # (test code = Lymphocytes 1.3 1.0-5.5 N #) [facility] HospitalErurcllUPCEBNAXNQ9579-35-72 07:45:00 Test Item Value Reference Range Interpretation Comments Basophils (test code = 0.0 See_Comment N [Aut omated message] The Basophils) system which ge nerated this result tra nsmitted reference range : <=1.0. The reference r katie was not used to int erpret this result as normal/abnormal . [facility] HospitalXgrilnmQLUTUCGXKW7204-83-63 07:45:00 Test Item Value Reference Range Interpretation Comments Segs-Bands # (test code = Segs-Bands #) 12.6 1.5-8.1 H [facility] HospitalFfquxktFNIVMCKFXS3944-34-55 07:45:00 Test Item Value Reference Range Interpretation Comments Monocytes (test code = Monocytes) 4.4 2.0-12.0 N [facility] HospitalIjxttclRGEZERAOEE9960-25-79 07:45:00 Test Item Value Reference Range Interpretation Comments Eosinophils (test code = 0.0 See_Comment N [A utomated message] The Eosinophils) system which ge nerated this result tra nsmitted reference range : <=4.0. The reference r katie was not used to int erpret this result as normal/abnormal . [facility] HospitalHunymunIZJVWPGILW2140-59-60 07:45:00 Test Item Value Reference Range Interpretation Comments Segs (test code = Segs) 86.5 45.0-75.0 H [facility] HospitalOzvmlwzFLDXPEDKCW7143-17-61 07:45:00 Test Item Value Reference Range Interpretation Comments Lymphocytes (test code = Lymphocytes) 9.1 20.0-40.0 L [facility] HospitalStnnnrfGFPNWTBTCW4201-09-08 07:45:00 Test Item Value Reference Range Interpretation Comments MCV (test code = MCV) 92.9 81.0-99.0 N [facility] HospitalKfsacjcDGWRBJUSOJ9465-51-18 07:45:00 Test Item Value Reference Range Interpretation Comments MCH (test code = MCH) 32.0 pg 27.0-31.0 H [facility]NiowadjKGHRWJIFPH1413-44-75 07:45:00 Test Item Value Reference Range Interpretation Comments Hct (test code = Hct) 29.0 36.0-48.0 L [facility] HospitalGqrlwwjKTNQPIMTIW4547-85-10 07:45:00 Test Item Value Reference Range Interpretation Comments Hgb (test code = Hgb) 10.0 12.0-16.0 L [facility] HospitalDwjmedzZJUGNLPNHV2327-47-38 07:45:00 Test Item Value Reference Range Interpretation Comments Platelet (test code = Platelet) 286 133-450 N [facility] HospitalNuuclfjHWYDHPWOZM6607-25-52 07:45:00 Test Item Value Reference Range Interpretation Comments MPV (test code = MPV) 7.2 7.4-10.4 L [facility] HospitalSpugnwyQHCHCOLVWA7516-78-62 07:45:00 Test Item Value Reference Range Interpretation Comments RDW (test code = RDW) 16.8 11.5-14.5 H [facility] HospitalDxolsmxHYSMSPIJVX0026-74-77 07:45:00 Test Item Value Reference Range Interpretation Comments MCHC (test code = MCHC) 34.5 32.0-36.0 N [facility] HospitalFygxjykKYAGZRBAZI1180-60-13 07:45:00 Test Item Value Reference Range Interpretation Comments RBC (test code = RBC) 3.12 4.20-5.40 L [facility] HospitalGckugzdBPSDAUDDCN1962-76-59 07:45:00 Test Item Value Reference Range Interpretation Comments WBC (test code = WBC) 14.5 3.7-10.[address] [facility]SirrrywCGNXFSDDMV8165-22-66 07:45:00 Test Item Value Reference Range Interpretation Comments Prealbumin (test code = Prealbumin) 16.1 18.0-45.0 L [facility]GbyertrBLXXFUAPE8620-84-78 07:45:00 Test Item Value Reference Range Interpretation Comments Phosphorus (test code = Phosphorus) 3.2 2.5-4.5 N [facility] CenterLtzcgrrIEZTLQWGQ7235-46-11 07:45:00 Test Item Value Reference Range Interpretation Comments Magnesium Lvl (test code = Magnesium 2.0 1.8-2.4 N Lvl) [facility] CenterNmapuklDEJXPNZSA6410-19-98 07:45:00 Test Item Value Reference Range Interpretation Comments eGFR (test code = eGFR) 55 [facility] CenterHfxgwloUDRBQIWMS8009-07-47 07:45:00 Test Item Value Reference Range Interpretation Comments Glucose Lvl (test code = Glucose Lvl) 98 70-99 N [facility] CenterKlrjuawPVVKCVHLV8145-29-79 07:45:00 Test Item Value Reference Range Interpretation Comments Creatinine Lvl (test code = Creatinine 1.1 0.5-1.4 N Lvl) [facility] CenterJdflvriVQBWGMROI1560-90-61 07:45:00 Test Item Value Reference Range Interpretation Comments Sodium Lvl (test code = Sodium Lvl) 137 135-145 N [facility] CenterBhhbhefQIIMQNXOS2346-31-55 07:45:00 Test Item Value Reference Range Interpretation Comments BUN (test code = BUN) 24 7-22 H [facility] CenterSafnipuSNPFDNERW9826-22-07 07:45:00 Test Item Value Reference Range Interpretation Comments Calcium Lvl (test code = Calcium Lvl) 8.2 8.5-10.5 L [facility] CenterFmwlbaeRHBLNPCIQ5024-23-90 07:45:00 Test Item Value Reference Range Interpretation Comments AGAP (test code = AGAP) 14.2 10.0-20.0 N [facility] CenterUwpjhriJDZQGAPAV4729-67-60 07:45:00 Test Item Value Reference Range Interpretation Comments Chloride Lvl (test code = Chloride Lvl) 94 95-109 L [facility] CenterDwvytkwTJYADBWRZ2756-52-05 07:45:00 Test Item Value Reference Range Interpretation Comments CO2 (test code = CO2) 32 24-32 N [facility] CenterJogbfgiYNNQLBDGW6648-52-16 07:45:00 Test Item Value Reference Range Interpretation Comments Potassium Lvl (test code = Potassium 3.2 3.5-5.1 L Lvl) [facility] HospitalTjnsgonYAECKNIPFO1130-59-28 07:45:00 Test Item Value Reference Range Interpretation Comments Basophils # (test code 0.0 See_Comment N [Aut omated message] The = Basophils #) system which generated this result tra nsmitted reference range : <=0.2. The reference r katie was not used to int erpret this result as normal/abnormal . [facility] HospitalKqttifoTYFPOJVVJM1714-66-50 07:45:00 Test Item Value Reference Range Interpretation Comments Eosinophils # (test code 0.0 See_Comment N [A utomated message] The = Eosinophils #) system whic h generated this result tra nsmitted reference range : <=0.5. The reference r katie was not used to int erpret this result as normal/abnormal . [facility] HospitalQbjfaioAJGKCCDIDX4906-82-54 07:45:00 Test Item Value Reference Range Interpretation Comments Monocytes # (test code 0.6 See_Comment N [Aut omated message] The = Monocytes #) system which generated this result tra nsmitted reference range : <=0.8. The reference r katie was not used to int erpret this result as normal/abnormal . [facility] HospitalEdznhbhTYYSSBVBZV6572-00-12 07:45:00 Test Item Value Reference Range Interpretation Comments Lymphocytes # (test code = Lymphocytes 1.3 1.0-5.5 N #) [facility] HospitalHzcnkvtTHFZIYWVKR0990-82-19 07:45:00 Test Item Value Reference Range Interpretation Comments Basophils (test code = 0.0 See_Comment N [Aut omated message] The Basophils) system which ge nerated this result tra nsmitted reference range : <=1.0. The reference r katie was not used to int erpret this result as normal/abnormal . [facility] HospitalQjxrzpnIFRSUTBULQ9782-34-63 07:45:00 Test Item Value Reference Range Interpretation Comments Segs-Bands # (test code = Segs-Bands #) 12.6 1.5-8.1 H [facility] HospitalDpetrswEDQTPJPHPX7881-06-33 07:45:00 Test Item Value Reference Range Interpretation Comments Monocytes (test code = Monocytes) 4.4 2.0-12.0 N [facility] HospitalLdfpjspFCUJOJOBRM1730-94-20 07:45:00 Test Item Value Reference Range Interpretation Comments Eosinophils (test code = 0.0 See_Comment N [A utomated message] The Eosinophils) system which ge nerated this result tra nsmitted reference range : <=4.0. The reference r katie was not used to int erpret this result as normal/abnormal . [facility] HospitalCycskoyRFBSQDYHRB0392-90-87 07:45:00 Test Item Value Reference Range Interpretation Comments Segs (test code = Segs) 86.5 45.0-75.0 H [facility] HospitalVchfqktZJHPQOUDJM3092-56-78 07:45:00 Test Item Value Reference Range Interpretation Comments Lymphocytes (test code = Lymphocytes) 9.1 20.0-40.0 L [facility] HospitalKgejfshBZSWPJLZFK6178-81-41 07:45:00 Test Item Value Reference Range Interpretation Comments MCV (test code = MCV) 92.9 81.0-99.0 N [facility] HospitalUexmzuvKRKKXTDHKK9936-40-27 07:45:00 Test Item Value Reference Range Interpretation Comments MCH (test code = MCH) 32.0 pg 27.0-31.0 H [facility] HospitalUtvbirxNWLZEFGKCF6438-77-48 07:45:00 Test Item Value Reference Range Interpretation Comments Hct (test code = Hct) 29.0 36.0-48.0 L [facility] HospitalLnoyamhRIYHTDENIL7579-13-35 07:45:00 Test Item Value Reference Range Interpretation Comments Hgb (test code = Hgb) 10.0 12.0-16.0 L [facility] HospitalPufihazFYLDLOFFRB4004-35-03 07:45:00 Test Item Value Reference Range Interpretation Comments Platelet (test code = Platelet) 286 133-450 N [facility] HospitalOoaazyvVELYMKIGZV4835-52-72 07:45:00 Test Item Value Reference Range Interpretation Comments MPV (test code = MPV) 7.2 7.4-10.4 L [facility] HospitalNyquygeBVVCUJFEHW4550-72-54 07:45:00 Test Item Value Reference Range Interpretation Comments RDW (test code = RDW) 16.8 11.5-14.5 H [facility] HospitalUnucwvaASZLTEOSHN4781-35-73 07:45:00 Test Item Value Reference Range Interpretation Comments MCHC (test code = MCHC) 34.5 32.0-36.0 N [facility] HospitalVrgvklqDHNFZJNPTX6239-83-45 07:45:00 Test Item Value Reference Range Interpretation Comments RBC (test code = RBC) 3.12 4.20-5.40 L [facility] HospitalQgfoymcWWKGPHSIOE7696-09-46 07:45:00 Test Item Value Reference Range Interpretation Comments WBC (test code = WBC) 14.5 3.7-10.4 H [facility]IflwiwjDTMFLHTUUB4032-19-94 07:45:00 Test Item Value Reference Range Interpretation Comments Prealbumin (test code = Prealbumin) 16.1 18.0-45.0 L [facility] CenterRvxgtwiRNGBHNNRN5119-16-58 07:45:00 Test Item Value Reference Range Interpretation Comments Phosphorus (test code = Phosphorus) 3.2 2.5-4.5 N [facility] CenterKbkblkyFRGJYRYWA2380-86-71 07:45:00 Test Item Value Reference Range Interpretation Comments Magnesium Lvl (test code = Magnesium 2.0 1.8-2.4 N Lvl) [facility] CenterMqctbkfWHRQWRAQX0906-46-23 07:45:00 Test Item Value Reference Range Interpretation Comments eGFR (test code = eGFR) 55 [facility] CenterUxiwyyqVOFTNKSYT8230-46-07 07:45:00 Test Item Value Reference Range Interpretation Comments Glucose Lvl (test code = Glucose Lvl) 98 70-99 N [facility] CenterInbsqwgKDQGCGCBZ0833-75-86 07:45:00 Test Item Value Reference Range Interpretation Comments Creatinine Lvl (test code = Creatinine 1.1 0.5-1.4 N Lvl) [facility] CenterUhxgoedLIVAQBFUC5455-68-09 07:45:00 Test Item Value Reference Range Interpretation Comments Sodium Lvl (test code = Sodium Lvl) 137 135-145 N [facility] CenterSykwbjcNADAOITEU4307-27-27 07:45:00 Test Item Value Reference Range Interpretation Comments BUN (test code = BUN) 24 7-22 H [facility] CenterKmagtssSYVSTMKXF6511-72-92 07:45:00 Test Item Value Reference Range Interpretation Comments Calcium Lvl (test code = Calcium Lvl) 8.2 8.5-10.5 L [facility] CenterYlmveywFPQYQKJOI1273-30-38 07:45:00 Test Item Value Reference Range Interpretation Comments AGAP (test code = AGAP) 14.2 10.0-20.0 N [facility] CenterSllwuobVOVCWGLFP2600-19-16 07:45:00 Test Item Value Reference Range Interpretation Comments Chloride Lvl (test code = Chloride Lvl) 94 95-109 L [facility] CenterYtqgrdkYBCAVXFPU8466-52-88 07:45:00 Test Item Value Reference Range Interpretation Comments CO2 (test code = CO2) 32 24-32 N [facility] CenterOretehmPGFLDPWTX6746-45-63 07:45:00 Test Item Value Reference Range Interpretation Comments Potassium Lvl (test code = Potassium 3.2 3.5-5.1 L Lvl) [facility] HospitalSmnxdcpNCAXUYUQPZ1937-68-07 07:45:00 Test Item Value Reference Range Interpretation Comments Basophils # (test code 0.0 See_Comment N [Aut omated message] The = Basophils #) system which generated this result tra nsmitted reference range : <=0.2. The reference r katie was not used to int erpret this result as normal/abnormal . [facility] HospitalRgvyhfkHEZDAVPLLZ7803-22-70 07:45:00 Test Item Value Reference Range Interpretation Comments Eosinophils # (test code 0.0 See_Comment N [A utomated message] The = Eosinophils #) system whic h generated this result tra nsmitted reference range : <=0.5. The reference r katie was not used to int erpret this result as normal/abnormal . [facility] HospitalRmeivveNOSPJMYXNE7722-29-07 07:45:00 Test Item Value Reference Range Interpretation Comments Monocytes # (test code 0.6 See_Comment N [Aut omated message] The = Monocytes #) system which generated this result tra nsmitted reference range : <=0.8. The reference r katie was not used to int erpret this result as normal/abnormal . [facility] HospitalKunjuwbCEWQBTDOUK6530-49-93 07:45:00 Test Item Value Reference Range Interpretation Comments Lymphocytes # (test code = Lymphocytes 1.3 1.0-5.5 N #) [facility] HospitalMsqnlmvWMBFTFDPJD9530-00-54 07:45:00 Test Item Value Reference Range Interpretation Comments Basophils (test code = 0.0 See_Comment N [Aut omated message] The Basophils) system which ge nerated this result tra nsmitted reference range : <=1.0. The reference r katie was not used to int erpret this result as normal/abnormal . [facility] HospitalMxyyilvQGWNHMEUUD3693-50-12 07:45:00 Test Item Value Reference Range Interpretation Comments Segs-Bands # (test code = Segs-Bands #) 12.6 1.5-8.1 H [facility] HospitalJbtvacqZIXYNWLWBM2655-97-15 07:45:00 Test Item Value Reference Range Interpretation Comments Monocytes (test code = Monocytes) 4.4 2.0-12.0 N [facility] HospitalTpthnxjWDSWLYYVLE7762-90-94 07:45:00 Test Item Value Reference Range Interpretation Comments Eosinophils (test code = 0.0 See_Comment N [A utomated message] The Eosinophils) system which ge nerated this result tra nsmitted reference range : <=4.0. The reference r katie was not used to int erpret this result as normal/abnormal . [facility] HospitalApnqpmwLCYTIYZLZN5928-89-98 07:45:00 Test Item Value Reference Range Interpretation Comments Segs (test code = Segs) 86.5 45.0-75.0 H [facility] HospitalWtyicfsQCIUNUZOHP7877-73-04 07:45:00 Test Item Value Reference Range Interpretation Comments Lymphocytes (test code = Lymphocytes) 9.1 20.0-40.0 L [facility] HospitalJtdoklsGVKGFTVHJB0133-68-03 07:45:00 Test Item Value Reference Range Interpretation Comments MCV (test code = MCV) 92.9 81.0-99.0 N [facility] HospitalAqqzejcACSPPMZRFV0010-33-02 07:45:00 Test Item Value Reference Range Interpretation Comments MCH (test code = MCH) 32.0 pg 27.0-31.0 H [facility] HospitalEifehylXBKTGTDPTK5139-72-81 07:45:00 Test Item Value Reference Range Interpretation Comments Hct (test code = Hct) 29.0 36.0-48.0 L [facility] HospitalWzgbjdcVWPSRPFRZX0976-39-53 07:45:00 Test Item Value Reference Range Interpretation Comments Hgb (test code = Hgb) 10.0 12.0-16.0 L [facility] HospitalQpfnbckJKONNDGCKE5179-13-89 07:45:00 Test Item Value Reference Range Interpretation Comments Platelet (test code = Platelet) 286 133-450 N [facility] HospitalQrqvfdlUYWZEEBDJU8014-89-72 07:45:00 Test Item Value Reference Range Interpretation Comments MPV (test code = MPV) 7.2 7.4-10.4 L [facility] HospitalFhiepvnJREJQBISNS4551-00-16 07:45:00 Test Item Value Reference Range Interpretation Comments RDW (test code = RDW) 16.8 11.5-14.5 H [facility] HospitalGinxqhoOATINQLGVK5766-76-02 07:45:00 Test Item Value Reference Range Interpretation Comments MCHC (test code = MCHC) 34.5 32.0-36.0 N [facility] HospitalBhvzlgwOOMQFIBDMS5540-79-24 07:45:00 Test Item Value Reference Range Interpretation Comments RBC (test code = RBC) 3.12 4.20-5.40 L [facility] HospitalTlqjguaDMFRYRKHEW9694-03-93 07:45:00 Test Item Value Reference Range Interpretation Comments WBC (test code = WBC) 14.5 3.7-10.[address] [facility] HospitalChpydedOJMWUKWZYC9565-96-87 07:45:00 Test Item Value Reference Range Interpretation Comments Prealbumin (test code = Prealbumin) 16.1 18.0-45.0 L [facility] CenterOtojoqkRXWBUJFPV0145-46-34 07:45:00 Test Item Value Reference Range Interpretation Comments Phosphorus (test code = Phosphorus) 3.2 2.5-4.5 N [facility] CenterLmuqmtpOJZSSEHKU6773-45-44 07:45:00 Test Item Value Reference Range Interpretation Comments Magnesium Lvl (test code = Magnesium 2.0 1.8-2.4 N Lvl) [facility] CenterWybtzecDWOTJKFPY6421-49-46 07:45:00 Test Item Value Reference Range Interpretation Comments eGFR (test code = eGFR) 55 [facility] CenterHiukjejWCVTBVUTM9593-93-59 07:45:00 Test Item Value Reference Range Interpretation Comments Glucose Lvl (test code = Glucose Lvl) 98 70-99 N [facility] CenterPxuyqmmXMJLLYZTW1324-67-96 07:45:00 Test Item Value Reference Range Interpretation Comments Creatinine Lvl (test code = Creatinine 1.1 0.5-1.4 N Lvl) [facility] CenterIvizhxjCYBEBPXYO0398-42-11 07:45:00 Test Item Value Reference Range Interpretation Comments Sodium Lvl (test code = Sodium Lvl) 137 135-145 N [facility] CenterKozbshkIAURUKBIV2633-39-22 07:45:00 Test Item Value Reference Range Interpretation Comments BUN (test code = BUN) 24 7-22 H [facility] CenterApmqbqbJUJTOAKJQ8705-58-18 07:45:00 Test Item Value Reference Range Interpretation Comments Calcium Lvl (test code = Calcium Lvl) 8.2 8.5-10.5 L [facility] CenterGupthmnQRIBSELHB3816-92-26 07:45:00 Test Item Value Reference Range Interpretation Comments AGAP (test code = AGAP) 14.2 10.0-20.0 N [facility] CenterVqesyprTFLRDCQDW7894-86-91 07:45:00 Test Item Value Reference Range Interpretation Comments Chloride Lvl (test code = Chloride Lvl) 94 95-109 L [facility] CenterPqewqheNYBDKEQOS7098-73-95 07:45:00 Test Item Value Reference Range Interpretation Comments CO2 (test code = CO2) 32 24-32 N [facility] CenterRmbwegnIDUPEDWOE2138-07-03 07:45:00 Test Item Value Reference Range Interpretation Comments Potassium Lvl (test code = Potassium 3.2 3.5-5.1 L Lvl) [facility] HospitalPtxqozeOLSDQBZGQT3933-33-36 07:45:00 Test Item Value Reference Range Interpretation Comments Basophils # (test code 0.0 See_Comment N [Aut omated message] The = Basophils #) system which generated this result tra nsmitted reference range : <=0.2. The reference r katie was not used to int erpret this result as normal/abnormal . [facility] HospitalXbwyxirGFCJYLKFSQ3971-06-27 07:45:00 Test Item Value Reference Range Interpretation Comments Eosinophils # (test code 0.0 See_Comment N [A utomated message] The = Eosinophils #) system whic h generated this result tra nsmitted reference range : <=0.5. The reference r katie was not used to int erpret this result as normal/abnormal . [facility] HospitalZxezjylJUZRTBDLSE0949-27-91 07:45:00 Test Item Value Reference Range Interpretation Comments Monocytes # (test code 0.6 See_Comment N [Aut omated message] The = Monocytes #) system which generated this result tra nsmitted reference range : <=0.8. The reference r katie was not used to int erpret this result as normal/abnormal . [facility] HospitalBuwthyiXKJJXRBZZX6487-43-08 07:45:00 Test Item Value Reference Range Interpretation Comments Lymphocytes # (test code = Lymphocytes 1.3 1.0-5.5 N #) [facility] HospitalBgzsuwwIGXWXVGTTU6854-77-42 07:45:00 Test Item Value Reference Range Interpretation Comments Basophils (test code = 0.0 See_Comment N [Aut omated message] The Basophils) system which ge nerated this result tra nsmitted reference range : <=1.0. The reference r katie was not used to int erpret this result as normal/abnormal . [facility] HospitalSjtuupvXCDEFGWKPJ6571-00-81 07:45:00 Test Item Value Reference Range Interpretation Comments Segs-Bands # (test code = Segs-Bands #) 12.6 1.5-8.1 H [facility] HospitalGpyuiakVGYQHPWOPW3830-84-80 07:45:00 Test Item Value Reference Range Interpretation Comments Monocytes (test code = Monocytes) 4.4 2.0-12.0 N [facility] HospitalMkmhvtlNHAYXCEMJO1674-71-45 07:45:00 Test Item Value Reference Range Interpretation Comments Eosinophils (test code = 0.0 See_Comment N [A utomated message] The Eosinophils) system which ge nerated this result tra nsmitted reference range : <=4.0. The reference r katie was not used to int erpret this result as normal/abnormal . [facility] HospitalIyxrnqnQFGTLBCZCV6178-33-15 07:45:00 Test Item Value Reference Range Interpretation Comments Segs (test code = Segs) 86.5 45.0-75.0 H [facility] HospitalKxciyejXFZLQDNDEO0294-63-41 07:45:00 Test Item Value Reference Range Interpretation Comments Lymphocytes (test code = Lymphocytes) 9.1 20.0-40.0 L [facility] HospitalGhttvxsUUOHIXBPGI9729-57-00 07:45:00 Test Item Value Reference Range Interpretation Comments MCV (test code = MCV) 92.9 81.0-99.0 N [facility] HospitalVslnqalSIKCYQIRHN5153-38-18 07:45:00 Test Item Value Reference Range Interpretation Comments MCH (test code = MCH) 32.0 pg 27.0-31.0 H [facility] HospitalEtffmjgICUTEXMJCM6825-44-84 07:45:00 Test Item Value Reference Range Interpretation Comments Hct (test code = Hct) 29.0 36.0-48.0 L [facility] HospitalKwfimyxMHAYUTNOZA2133-16-41 07:45:00 Test Item Value Reference Range Interpretation Comments Hgb (test code = Hgb) 10.0 12.0-16.0 L [facility] HospitalWyuufuuFDHAPDNPTU6290-38-79 07:45:00 Test Item Value Reference Range Interpretation Comments Platelet (test code = Platelet) 286 133-450 N [facility] HospitalAnlzmwfTHTBRMVNIX8396-66-77 07:45:00 Test Item Value Reference Range Interpretation Comments MPV (test code = MPV) 7.2 7.4-10.4 L [facility] HospitalUryeuzkOZTNLZZJRG9718-87-39 07:45:00 Test Item Value Reference Range Interpretation Comments RDW (test code = RDW) 16.8 11.5-14.5 H [facility] HospitalXphrrnoNMXMUVQOMZ8510-62-75 07:45:00 Test Item Value Reference Range Interpretation Comments MCHC (test code = MCHC) 34.5 32.0-36.0 N [facility] HospitalMqolbzmCTODCTFAAU8706-08-06 07:45:00 Test Item Value Reference Range Interpretation Comments RBC (test code = RBC) 3.12 4.20-5.40 L [facility]BjwetkuQGZZXYODUC1568-16-17 07:45:00 Test Item Value Reference Range Interpretation Comments WBC (test code = WBC) 14.5 3.7-10.[address] [facility] HospitalVqwkiluRKZKDJETFQ2410-68-15 07:45:00 Test Item Value Reference Range Interpretation Comments Prealbumin (test code = Prealbumin) 16.1 18.0-45.0 L [facility]PsvpqmlTHPKIYZIL0851-66-92 07:45:00 Test Item Value Reference Range Interpretation Comments Phosphorus (test code = Phosphorus) 3.2 2.5-4.5 N [facility] CenterZriaboaRXTFKBZCD2433-92-10 07:45:00 Test Item Value Reference Range Interpretation Comments Magnesium Lvl (test code = Magnesium 2.0 1.8-2.4 N Lvl) [facility] CenterBnjmihzIBCWMIQRL2282-75-87 07:45:00 Test Item Value Reference Range Interpretation Comments eGFR (test code = eGFR) 55 [facility] CenterKpfeqvgPEWZMQNYC9190-60-12 07:45:00 Test Item Value Reference Range Interpretation Comments Glucose Lvl (test code = Glucose Lvl) 98 70-99 N [facility] CenterDegxhmrGTJLKYXDI8569-47-61 07:45:00 Test Item Value Reference Range Interpretation Comments Creatinine Lvl (test code = Creatinine 1.1 0.5-1.4 N Lvl) [facility] CenterPldzopdZWANKSZSD4507-82-07 07:45:00 Test Item Value Reference Range Interpretation Comments Sodium Lvl (test code = Sodium Lvl) 137 135-145 N [facility] CenterYkimvzvDWRNJMAJY3749-44-76 07:45:00 Test Item Value Reference Range Interpretation Comments BUN (test code = BUN) 24 7-22 H [facility] CenterEtifnctASUSBZHTB0786-15-72 07:45:00 Test Item Value Reference Range Interpretation Comments Calcium Lvl (test code = Calcium Lvl) 8.2 8.5-10.5 L [facility] CenterLdtzgecMDRMJYVUV0358-54-39 07:45:00 Test Item Value Reference Range Interpretation Comments AGAP (test code = AGAP) 14.2 10.0-20.0 N [facility] CenterXbvbxrnMQBDQDXLW4010-43-87 07:45:00 Test Item Value Reference Range Interpretation Comments Chloride Lvl (test code = Chloride Lvl) 94 95-109 L [facility] CenterHvpvhvhUVNAOALSR7670-14-03 07:45:00 Test Item Value Reference Range Interpretation Comments CO2 (test code = CO2) 32 24-32 N [facility] CenterQfieaycPKPIBSKPD3151-62-07 07:45:00 Test Item Value Reference Range Interpretation Comments Potassium Lvl (test code = Potassium 3.2 3.5-5.1 L Lvl) [facility] HospitalDklfainZEWWTGMYKX4342-28-21 07:45:00 Test Item Value Reference Range Interpretation Comments Basophils # (test code 0.0 See_Comment N [Aut omated message] The = Basophils #) system which generated this result tra nsmitted reference range : <=0.2. The reference r katie was not used to int erpret this result as normal/abnormal . [facility] HospitalHfpgvjqWUNZJYENXG5448-87-38 07:45:00 Test Item Value Reference Range Interpretation Comments Eosinophils # (test code 0.0 See_Comment N [A utomated message] The = Eosinophils #) system whic h generated this result tra nsmitted reference range : <=0.5. The reference r katie was not used to int erpret this result as normal/abnormal . [facility] HospitalIcvqrkvPHUGFNXXCS5042-08-62 07:45:00 Test Item Value Reference Range Interpretation Comments Monocytes # (test code 0.6 See_Comment N [Aut omated message] The = Monocytes #) system which generated this result tra nsmitted reference range : <=0.8. The reference r katie was not used to int erpret this result as normal/abnormal . [facility] HospitalNjbidiqVZJHQEPEJT4393-86-63 07:45:00 Test Item Value Reference Range Interpretation Comments Lymphocytes # (test code = Lymphocytes 1.3 1.0-5.5 N #) [facility] HospitalFypvofnHOJVXVFEWN4893-73-93 07:45:00 Test Item Value Reference Range Interpretation Comments Basophils (test code = 0.0 See_Comment N [Aut omated message] The Basophils) system which ge nerated this result tra nsmitted reference range : <=1.0. The reference r katie was not used to int erpret this result as normal/abnormal . [facility]PhnmnppXHGOCCSOMK5299-89-50 07:45:00 Test Item Value Reference Range Interpretation Comments Segs-Bands # (test code = Segs-Bands #) 12.6 1.5-8.1 H [facility] HospitalMjmcfazWGTGBZZCOM2278-40-11 07:45:00 Test Item Value Reference Range Interpretation Comments Monocytes (test code = Monocytes) 4.4 2.0-12.0 N [facility] HospitalMuihjswGCCGLYSLIQ6634-26-47 07:45:00 Test Item Value Reference Range Interpretation Comments Eosinophils (test code = 0.0 See_Comment N [A utomated message] The Eosinophils) system which ge nerated this result tra nsmitted reference range : <=4.0. The reference r katie was not used to int erpret this result as normal/abnormal . [facility] HospitalYkvgxhhWFIUITTGXU5006-69-59 07:45:00 Test Item Value Reference Range Interpretation Comments Segs (test code = Segs) 86.5 45.0-75.0 H [facility] HospitalIeflgtpHGKJNOPXIL5544-55-44 07:45:00 Test Item Value Reference Range Interpretation Comments Lymphocytes (test code = Lymphocytes) 9.1 20.0-40.0 L [facility] HospitalWcsomklDOMPUVXRHF9421-96-90 07:45:00 Test Item Value Reference Range Interpretation Comments MCV (test code = MCV) 92.9 81.0-99.0 N [facility] HospitalStzyqvmYPYARILNGZ5510-34-54 07:45:00 Test Item Value Reference Range Interpretation Comments MCH (test code = MCH) 32.0 pg 27.0-31.0 H [facility] HospitalXejbemcTCXTUQDAZI9834-57-90 07:45:00 Test Item Value Reference Range Interpretation Comments Hct (test code = Hct) 29.0 36.0-48.0 L [facility] HospitalZgugpxmHMXPDNEPJR5049-31-12 07:45:00 Test Item Value Reference Range Interpretation Comments Hgb (test code = Hgb) 10.0 12.0-16.0 L [facility] HospitalXnztvcoAOPCCHKHQC4710-84-02 07:45:00 Test Item Value Reference Range Interpretation Comments Platelet (test code = Platelet) 286 133-450 N [facility] HospitalTkezqeiYAHHUBXTKX8885-08-30 07:45:00 Test Item Value Reference Range Interpretation Comments MPV (test code = MPV) 7.2 7.4-10.4 L [facility] HospitalGldduimBPQDVAOBGP4472-04-95 07:45:00 Test Item Value Reference Range Interpretation Comments RDW (test code = RDW) 16.8 11.5-14.5 H [facility] HospitalBkjegqdGGNITYVLFL1540-01-34 07:45:00 Test Item Value Reference Range Interpretation Comments MCHC (test code = MCHC) 34.5 32.0-36.0 N [facility]UysyasnAYHXGFUTDN6826-18-89 07:45:00 Test Item Value Reference Range Interpretation Comments RBC (test code = RBC) 3.12 4.20-5.40 L [facility] HospitalEndpswhPLGHXBAPRJ4723-84-16 07:45:00 Test Item Value Reference Range Interpretation Comments WBC (test code = WBC) 14.5 3.7-10.[address] [facility]OyvqbbpPSOFYEUKHU1136-36-95 07:45:00 Test Item Value Reference Range Interpretation Comments Prealbumin (test code = Prealbumin) 16.1 18.0-45.0 L [facility]SqdfzalXXVTXVPRR9196-82-43 07:55:00 Test Item Value Reference Range Interpretation Comments eGFR (test code = eGFR) 61 [facility] CenterLupjnqlVUHVJUGZA8522-74-49 07:55:00 Test Item Value Reference Range Interpretation Comments Calcium Lvl (test code = Calcium Lvl) 8.1 8.5-10.5 L [facility] CenterOctfzudVTZFXVYHU5501-24-00 07:55:00 Test Item Value Reference Range Interpretation Comments AGAP (test code = AGAP) 17.4 10.0-20.0 N [facility] CenterYtqooouBLKCWGGDI9526-47-64 07:55:00 Test Item Value Reference Range Interpretation Comments Sodium Lvl (test code = Sodium Lvl) 147 135-145 H [facility] CenterToptsdcNCKKYLYOR2598-34-91 07:55:00 Test Item Value Reference Range Interpretation Comments Potassium Lvl (test code = Potassium 3.4 3.5-5.1 L Lvl) [facility] CenterXlmvzwcHWBYESHTT6448-95-32 07:55:00 Test Item Value Reference Range Interpretation Comments Creatinine Lvl (test code = Creatinine 1.0 0.5-1.4 N Lvl) [facility] CenterZnnahdeZYZSKCCJG6646-64-82 07:55:00 Test Item Value Reference Range Interpretation Comments Chloride Lvl (test code = Chloride Lvl) 104 95-109 N [facility] CenterQrfvlrgKHNBRMEKY9371-51-91 07:55:00 Test Item Value Reference Range Interpretation Comments CO2 (test code = CO2) 29 24-32 N [facility] CenterRqivhfpCJSBOVPUJ4520-07-85 07:55:00 Test Item Value Reference Range Interpretation Comments BUN (test code = BUN) 25 7-22 H [facility] CenterHdvttjpXDEBUKUIE4020-38-21 07:55:00 Test Item Value Reference Range Interpretation Comments Glucose Lvl (test code = Glucose Lvl) 96 70-99 N [facility] HospitalCcmedphTKQKNXKFUZ6167-73-96 07:55:00 Test Item Value Reference Range Interpretation Comments RDW (test code = RDW) 17.3 11.5-14.5 H [facility] HospitalLuprwolPFFHBFIPTV8881-13-59 07:55:00 Test Item Value Reference Range Interpretation Comments Platelet (test code = Platelet) 249 133-450 N [facility] HospitalYtjllulCZGNWVYBKQ7529-41-29 07:55:00 Test Item Value Reference Range Interpretation Comments MPV (test code = MPV) 7.4 7.4-10.4 N [facility] HospitalLocnitbVEFJRNHTPJ8592-67-82 07:55:00 Test Item Value Reference Range Interpretation Comments MCHC (test code = MCHC) 33.8 32.0-36.0 N [facility] HospitalTzvkbavTHGYRQXQQC8864-92-59 07:55:00 Test Item Value Reference Range Interpretation Comments Hct (test code = Hct) 27.3 36.0-48.0 L [facility] HospitalIxiuysfJZANCQQLSW4311-87-54 07:55:00 Test Item Value Reference Range Interpretation Comments MCV (test code = MCV) 93.3 81.0-99.0 N [facility] HospitalLymbbfuMCXLDSUZLS2084-99-06 07:55:00 Test Item Value Reference Range Interpretation Comments MCH (test code = MCH) 31.6 pg 27.0-31.0 H [facility] HospitalOnlgxiuCZLDKWLOPJ3479-00-42 07:55:00 Test Item Value Reference Range Interpretation Comments Hgb (test code = Hgb) 9.3 12.0-16.0 L [facility] HospitalSxuxslkAXDMBUDRXN7724-06-25 07:55:00 Test Item Value Reference Range Interpretation Comments WBC (test code = WBC) 14.3 3.7-10.4 H [facility] HospitalOolsailEUSFBBXMJI8753-47-75 07:55:00 Test Item Value Reference Range Interpretation Comments RBC (test code = RBC) 2.93 4.20-5.40 L [facility] HospitalKdfehoyFOMTNJKVVI1002-53-62 07:55:00 Test Item Value Reference Range Interpretation Comments Large Plt (test code = Slight *ABN*(02/27/2013 A Large Plt) 02:55:00) [facility] HospitalQdoowufAMSVHWNBMK6640-98-09 07:55:00 Test Item Value Reference Range Interpretation Comments Hypochrom (test code = Slight (02/27/2013 N Hypochrom) 02:55:00) [facility] HospitalCujbdjjLEJQLJMDKF1448-21-30 07:55:00 Test Item Value Reference Range Interpretation Comments Polychrom (test code = Slight (02/27/2013 N Polychrom) 02:55:00) [facility] HospitalIdtwflbUCELLKIQRE9381-21-13 07:55:00 Test Item Value Reference Range Interpretation Comments Anisocyte (test code = 1+ *ABN*(02/27/2013 A Anisocyte) 02:55:00) [facility] HospitalFapomugKAQEPJRARR5884-02-44 07:55:00 Test Item Value Reference Range Interpretation Comments Plt Morph (test code = Normal (02/27/2013 N Plt Morph) 02:55:00) [facility] HospitalWeeomufSFYMDLTUYM6119-56-62 07:55:00 Test Item Value Reference Range Interpretation Comments Macrocyte (test code = 1+ *ABN*(02/27/2013 A Macrocyte) 02:55:00) [facility] HospitalEcbhfycYYAVOGVSZN2707-21-15 07:55:00 Test Item Value Reference Range Interpretation Comments Segs (test code = Segs) 72.0 45.0-75.0 N [facility] HospitalOjhkblaOMIBESGLHB3211-91-54 07:55:00 Test Item Value Reference Range Interpretation Comments Monocytes (test code = Monocytes) 6.0 2.0-12.0 N [facility] HospitalCtyxcqvBSZKIVVSMT2521-52-17 07:55:00 Test Item Value Reference Range Interpretation Comments Bands (test code = 10.0 See_Comment N [Automat ed message] The Bands) system which ge nerated this result transmit matteo reference range : <=11.0. The reference r katie was not used to interpr et this result as miesha l/abnormal. [facility] HospitalPtihilpUUCDDVOKCO0387-10-49 07:55:00 Test Item Value Reference Range Interpretation Comments Atypical Lymphs (test code = Atypical 0.0 N Lymphs) [facility] HospitalYlzgauuFQWFIDEEFH1419-93-21 07:55:00 Test Item Value Reference Range Interpretation Comments Lymphocytes (test code = Lymphocytes) 12.0 20.0-40.0 L [facility] HospitalOkdvccvBQFMHNWIPU2029-64-82 07:55:00 Test Item Value Reference Range Interpretation Comments Lymphocytes # (test code = Lymphocytes 1.7 1.0-5.5 N #) [facility] HospitalFltgbfpQNGAWYPVSX6771-77-81 07:55:00 Test Item Value Reference Range Interpretation Comments Monocytes # (test code 0.9 See_Comment H [Aut omated message] The = Monocytes #) system which generated this result tra nsmitted reference range : <=0.8. The reference r katie was not used to int erpret this result as normal/abnormal . [facility] HospitalWnpfcdyVCVHBKFKJK4525-90-66 07:55:00 Test Item Value Reference Range Interpretation Comments Segs-Bands # (test code = Segs-Bands #) 11.7 1.5-8.1 H [facility] CenterBgmwbznQJHVCRFDA9294-38-46 07:55:00 Test Item Value Reference Range Interpretation Comments eGFR (test code = eGFR) 61 [facility] CenterIvixbotYSHSCVAAR0293-76-49 07:55:00 Test Item Value Reference Range Interpretation Comments Calcium Lvl (test code = Calcium Lvl) 8.1 8.5-10.5 L [facility] CenterAumbtnjCPUKUVEAM7450-07-12 07:55:00 Test Item Value Reference Range Interpretation Comments AGAP (test code = AGAP) 17.4 10.0-20.0 N [facility] CenterItpzyuvEPRNLCEMS7584-11-86 07:55:00 Test Item Value Reference Range Interpretation Comments Sodium Lvl (test code = Sodium Lvl) 147 135-145 H [facility] CenterKermnarVVYPTGPOU5940-74-47 07:55:00 Test Item Value Reference Range Interpretation Comments Potassium Lvl (test code = Potassium 3.4 3.5-5.1 L Lvl) [facility] CenterZsfogkaFDGSDKUMW6163-17-76 07:55:00 Test Item Value Reference Range Interpretation Comments Creatinine Lvl (test code = Creatinine 1.0 0.5-1.4 N Lvl) [facility] CenterDhmdbcsGNGTNTICD3418-44-90 07:55:00 Test Item Value Reference Range Interpretation Comments Chloride Lvl (test code = Chloride Lvl) 104 95-109 N [facility] CenterPqwxnzgSQGEOOFMO4856-44-84 07:55:00 Test Item Value Reference Range Interpretation Comments CO2 (test code = CO2) 29 24-32 N [facility] CenterHvlmqwuPRTLJIZDH7564-24-21 07:55:00 Test Item Value Reference Range Interpretation Comments BUN (test code = BUN) 25 7-22 H [facility] CenterDirdnhsCNFBHEWLO8753-02-37 07:55:00 Test Item Value Reference Range Interpretation Comments Glucose Lvl (test code = Glucose Lvl) 96 70-99 N [facility] HospitalDowcodhJJAZYCXKRJ3994-78-72 07:55:00 Test Item Value Reference Range Interpretation Comments RDW (test code = RDW) 17.3 11.5-14.5 H [facility] HospitalCzkerdgJJQZGSWICP7839-02-71 07:55:00 Test Item Value Reference Range Interpretation Comments Platelet (test code = Platelet) 249 133-450 N [facility] HospitalDhnmcymTHMFSGEAUY7426-97-43 07:55:00 Test Item Value Reference Range Interpretation Comments MPV (test code = MPV) 7.4 7.4-10.4 N [facility] HospitalAzyxtjcHRWGMVURJW1453-99-46 07:55:00 Test Item Value Reference Range Interpretation Comments MCHC (test code = MCHC) 33.8 32.0-36.0 N [facility] HospitalQflolntLGRWGJVHJH9863-62-44 07:55:00 Test Item Value Reference Range Interpretation Comments Hct (test code = Hct) 27.3 36.0-48.0 L [facility] HospitalTrniyjdZMGPUSEIJN3066-21-12 07:55:00 Test Item Value Reference Range Interpretation Comments MCV (test code = MCV) 93.3 81.0-99.0 N [facility] HospitalEzbfzwdFEZLHYDVNE2553-32-58 07:55:00 Test Item Value Reference Range Interpretation Comments MCH (test code = MCH) 31.6 pg 27.0-31.0 H [facility] HospitalLscshjbCFFTRDIWHK1704-92-63 07:55:00 Test Item Value Reference Range Interpretation Comments Hgb (test code = Hgb) 9.3 12.0-16.0 L [facility] HospitalYymzeihZWWATDDUTO5459-72-45 07:55:00 Test Item Value Reference Range Interpretation Comments WBC (test code = WBC) 14.3 3.7-10.4 H [facility] HospitalQurtqrxSEFVAODLZA5293-96-78 07:55:00 Test Item Value Reference Range Interpretation Comments RBC (test code = RBC) 2.93 4.20-5.40 L [facility] HospitalRrqobxmQYFXEKMXLB5029-59-27 07:55:00 Test Item Value Reference Range Interpretation Comments Large Plt (test code = Slight *ABN*(02/27/2013 A Large Plt) 02:55:00) [facility] HospitalBvggsddNWCWBWDNOS3421-70-75 07:55:00 Test Item Value Reference Range Interpretation Comments Hypochrom (test code = Slight (02/27/2013 N Hypochrom) 02:55:00) [facility] HospitalWkxhpuuHOINQHWAMC1293-63-91 07:55:00 Test Item Value Reference Range Interpretation Comments Polychrom (test code = Slight (02/27/2013 N Polychrom) 02:55:00) [facility] HospitalFwebcmdSGDBTKWKCY7479-72-84 07:55:00 Test Item Value Reference Range Interpretation Comments Anisocyte (test code = 1+ *ABN*(02/27/2013 A Anisocyte) 02:55:00) [facility] HospitalGkklqozWRYOFNCLSH9790-50-06 07:55:00 Test Item Value Reference Range Interpretation Comments Plt Morph (test code = Normal (02/27/2013 N Plt Morph) 02:55:00) [facility] HospitalKllournORXHTOKEYG1593-28-94 07:55:00 Test Item Value Reference Range Interpretation Comments Macrocyte (test code = 1+ *ABN*(02/27/2013 A Macrocyte) 02:55:00) [facility] HospitalOznibmvSEWCTHNDFW2478-03-80 07:55:00 Test Item Value Reference Range Interpretation Comments Segs (test code = Segs) 72.0 45.0-75.0 N [facility] HospitalHukoybiCYTRLFHETM5869-52-14 07:55:00 Test Item Value Reference Range Interpretation Comments Monocytes (test code = Monocytes) 6.0 2.0-12.0 N [facility] HospitalLepafsxGOLGNKUTKI5669-84-47 07:55:00 Test Item Value Reference Range Interpretation Comments Bands (test code = 10.0 See_Comment N [Automat ed message] The Bands) system which ge nerated this result transmit matteo reference range : <=11.0. The reference r katie was not used to interpr et this result as miesha l/abnormal. [facility] HospitalLubpmwdBFTVOZGBXO0879-72-39 07:55:00 Test Item Value Reference Range Interpretation Comments Atypical Lymphs (test code = Atypical 0.0 N Lymphs) [facility] HospitalQblxkzaIYCWNHANDI7918-00-55 07:55:00 Test Item Value Reference Range Interpretation Comments Lymphocytes (test code = Lymphocytes) 12.0 20.0-40.0 L [facility] HospitalGvbszsbAWBJUFFIHT1354-76-09 07:55:00 Test Item Value Reference Range Interpretation Comments Lymphocytes # (test code = Lymphocytes 1.7 1.0-5.5 N #) [facility] HospitalZymhuraFNHDLLSIGI9732-89-70 07:55:00 Test Item Value Reference Range Interpretation Comments Monocytes # (test code 0.9 See_Comment H [Aut omated message] The = Monocytes #) system which generated this result tra nsmitted reference range : <=0.8. The reference r katie was not used to int erpret this result as normal/abnormal . [facility] HospitalIgxhfybEPDAJJGGXD2504-38-26 07:55:00 Test Item Value Reference Range Interpretation Comments Segs-Bands # (test code = Segs-Bands #) 11.7 1.5-8.1 H [facility] CenterWiuzjngBGSFLHBSX5361-19-17 07:55:00 Test Item Value Reference Range Interpretation Comments eGFR (test code = eGFR) 61 [facility] CenterIyjyyrtXNWBHCLWC6332-24-76 07:55:00 Test Item Value Reference Range Interpretation Comments Calcium Lvl (test code = Calcium Lvl) 8.1 8.5-10.5 L [facility] CenterHfnpynoWIFIVGNKR3247-99-81 07:55:00 Test Item Value Reference Range Interpretation Comments AGAP (test code = AGAP) 17.4 10.0-20.0 N [facility] CenterRrbqrxnUJZAMIKMH2532-46-14 07:55:00 Test Item Value Reference Range Interpretation Comments Sodium Lvl (test code = Sodium Lvl) 147 135-145 H [facility] CenterGfftvvjVWCMWFDHN3311-13-62 07:55:00 Test Item Value Reference Range Interpretation Comments Potassium Lvl (test code = Potassium 3.4 3.5-5.1 L Lvl) [facility] CenterSuetdyeYBJOZFDVF8433-11-78 07:55:00 Test Item Value Reference Range Interpretation Comments Creatinine Lvl (test code = Creatinine 1.0 0.5-1.4 N Lvl) [facility] CenterAjixpnnUPGKVGCZG3769-03-22 07:55:00 Test Item Value Reference Range Interpretation Comments Chloride Lvl (test code = Chloride Lvl) 104 95-109 N [facility] CenterZcjtrueSJVDSIWWF9889-05-10 07:55:00 Test Item Value Reference Range Interpretation Comments CO2 (test code = CO2) 29 24-32 N [facility] CenterKzhsjxfYIGGQGFUQ6458-42-66 07:55:00 Test Item Value Reference Range Interpretation Comments BUN (test code = BUN) 25 7-22 H [facility] CenterOmgmfanDQDDFDIYJ6106-76-01 07:55:00 Test Item Value Reference Range Interpretation Comments Glucose Lvl (test code = Glucose Lvl) 96 70-99 N [facility] HospitalJagqdhjBWLLBHFGKJ9106-44-34 07:55:00 Test Item Value Reference Range Interpretation Comments RDW (test code = RDW) 17.3 11.5-14.5 H [facility] HospitalTwtlzamROYLRRKFDU1652-39-59 07:55:00 Test Item Value Reference Range Interpretation Comments Platelet (test code = Platelet) 249 133-450 N [facility] HospitalTwckdojJVSCWHAXRG2764-72-51 07:55:00 Test Item Value Reference Range Interpretation Comments MPV (test code = MPV) 7.4 7.4-10.4 N [facility] HospitalVzfgqweKKMROIDSKW4305-56-51 07:55:00 Test Item Value Reference Range Interpretation Comments MCHC (test code = MCHC) 33.8 32.0-36.0 N [facility] HospitalTrdklfgMKGSHQTOCI4924-14-56 07:55:00 Test Item Value Reference Range Interpretation Comments Hct (test code = Hct) 27.3 36.0-48.0 L [facility] HospitalXzrnqmjXINEQPXOIQ5060-20-91 07:55:00 Test Item Value Reference Range Interpretation Comments MCV (test code = MCV) 93.3 81.0-99.0 N [facility] HospitalSjtsytoODCTMAAMFE2720-81-14 07:55:00 Test Item Value Reference Range Interpretation Comments MCH (test code = MCH) 31.6 pg 27.0-31.0 H [facility] HospitalYybwdvvOQXYRBTEYU3175-79-68 07:55:00 Test Item Value Reference Range Interpretation Comments Hgb (test code = Hgb) 9.3 12.0-16.0 L [facility] HospitalIoxightKXEBAVAIXJ1113-70-01 07:55:00 Test Item Value Reference Range Interpretation Comments WBC (test code = WBC) 14.3 3.7-10.4 H [facility] HospitalMbmxtgbBNPOSHAOZQ1102-16-35 07:55:00 Test Item Value Reference Range Interpretation Comments RBC (test code = RBC) 2.93 4.20-5.40 L [facility] HospitalXhglfosZXOTHAQPAY2572-37-05 07:55:00 Test Item Value Reference Range Interpretation Comments Large Plt (test code = Slight *ABN*(02/27/2013 A Large Plt) 02:55:00) [facility] HospitalAocfhyoHOJCJJTTTQ6093-48-29 07:55:00 Test Item Value Reference Range Interpretation Comments Hypochrom (test code = Slight (02/27/2013 N Hypochrom) 02:55:00) [facility] HospitalKjsepvxWMXNEYDXLA1681-28-07 07:55:00 Test Item Value Reference Range Interpretation Comments Polychrom (test code = Slight (02/27/2013 N Polychrom) 02:55:00) [facility] HospitalYbphacpMWILFLRQCK1841-89-17 07:55:00 Test Item Value Reference Range Interpretation Comments Anisocyte (test code = 1+ *ABN*(02/27/2013 A Anisocyte) 02:55:00) [facility] HospitalDduylpaITZSBKDVFQ0918-46-08 07:55:00 Test Item Value Reference Range Interpretation Comments Plt Morph (test code = Normal (02/27/2013 N Plt Morph) 02:55:00) [facility] HospitalXstynrpGYBPRXDGBR9068-37-59 07:55:00 Test Item Value Reference Range Interpretation Comments Macrocyte (test code = 1+ *ABN*(02/27/2013 A Macrocyte) 02:55:00) [facility] HospitalOtzhogwBUMYGHHUCN4819-29-27 07:55:00 Test Item Value Reference Range Interpretation Comments Segs (test code = Segs) 72.0 45.0-75.0 N [facility] HospitalRpmwvtrVDUUATBDSH3073-89-11 07:55:00 Test Item Value Reference Range Interpretation Comments Monocytes (test code = Monocytes) 6.0 2.0-12.0 N [facility] HospitalTncrnyoGXWJBXOOLA6118-50-11 07:55:00 Test Item Value Reference Range Interpretation Comments Bands (test code = 10.0 See_Comment N [Automat ed message] The Bands) system which ge nerated this result transmit matteo reference range : <=11.0. The reference r katie was not used to interpr et this result as miesha l/abnormal. [facility] HospitalZwhhoiuYHUNXESELO7537-91-08 07:55:00 Test Item Value Reference Range Interpretation Comments Atypical Lymphs (test code = Atypical 0.0 N Lymphs) [facility] HospitalUwukfbtWVHLTKZOHL6735-08-23 07:55:00 Test Item Value Reference Range Interpretation Comments Lymphocytes (test code = Lymphocytes) 12.0 20.0-40.0 L [facility] HospitalObgdbaiUOEQJAHDQC7012-15-37 07:55:00 Test Item Value Reference Range Interpretation Comments Lymphocytes # (test code = Lymphocytes 1.7 1.0-5.5 N #) [facility] HospitalWxbpkroARMWJXGQQN8224-77-23 07:55:00 Test Item Value Reference Range Interpretation Comments Monocytes # (test code 0.9 See_Comment H [Aut omated message] The = Monocytes #) system which generated this result tra nsmitted reference range : <=0.8. The reference r katie was not used to int erpret this result as normal/abnormal . [facility] HospitalEweijexICLVTHYGOJ3910-93-82 07:55:00 Test Item Value Reference Range Interpretation Comments Segs-Bands # (test code = Segs-Bands #) 11.7 1.5-8.1 H [facility] CenterYmkkwsuQMUWZDVRL3181-48-74 07:55:00 Test Item Value Reference Range Interpretation Comments eGFR (test code = eGFR) 61 [facility] CenterQtdgzxwRORDKMMHE4748-02-13 07:55:00 Test Item Value Reference Range Interpretation Comments Calcium Lvl (test code = Calcium Lvl) 8.1 8.5-10.5 L [facility] CenterDspqgezNXYMFSYMJ7350-76-66 07:55:00 Test Item Value Reference Range Interpretation Comments AGAP (test code = AGAP) 17.4 10.0-20.0 N [facility] CenterEezaknoYGAOSHFUP5409-10-23 07:55:00 Test Item Value Reference Range Interpretation Comments Sodium Lvl (test code = Sodium Lvl) 147 135-145 H [facility] CenterRsrwovkAIKZSSRGW8937-04-67 07:55:00 Test Item Value Reference Range Interpretation Comments Potassium Lvl (test code = Potassium 3.4 3.5-5.1 L Lvl) [facility] CenterYoaidlwLCMPJCAJX2639-17-87 07:55:00 Test Item Value Reference Range Interpretation Comments Creatinine Lvl (test code = Creatinine 1.0 0.5-1.4 N Lvl) [facility] CenterGptoxtvNGVYPVSFK4441-99-61 07:55:00 Test Item Value Reference Range Interpretation Comments Chloride Lvl (test code = Chloride Lvl) 104 95-109 N [facility] CenterMbmgdcxWSDPPRCLY3381-13-95 07:55:00 Test Item Value Reference Range Interpretation Comments CO2 (test code = CO2) 29 24-32 N [facility] CenterDqwewpnPWXATAERL7153-96-91 07:55:00 Test Item Value Reference Range Interpretation Comments BUN (test code = BUN) 25 7-22 H [facility] CenterLezsgebJFZGMCZQK4870-48-21 07:55:00 Test Item Value Reference Range Interpretation Comments Glucose Lvl (test code = Glucose Lvl) 96 70-99 N [facility] HospitalSlzlksvRQQHOVIMNX7054-18-73 07:55:00 Test Item Value Reference Range Interpretation Comments RDW (test code = RDW) 17.3 11.5-14.5 H [facility] HospitalEgzflcmWQULOYNBVL7589-55-13 07:55:00 Test Item Value Reference Range Interpretation Comments Platelet (test code = Platelet) 249 133-450 N [facility] HospitalZsfohlkAQPPSPDNQZ1134-45-36 07:55:00 Test Item Value Reference Range Interpretation Comments MPV (test code = MPV) 7.4 7.4-10.4 N [facility] [facility]vdxsfhWMQQOOELUC1463-96-81 07:55:00 Test Item Value Reference Range Interpretation Comments MCHC (test code = MCHC) 33.8 32.0-36.0 N [facility] HospitalVnbcxvkNQZOBCQXFO5555-43-68 07:55:00 Test Item Value Reference Range Interpretation Comments Hct (test code = Hct) 27.3 36.0-48.0 L [facility] HospitalDgndhxfAJYZOAATFE1812-20-92 07:55:00 Test Item Value Reference Range Interpretation Comments MCV (test code = MCV) 93.3 81.0-99.0 N [facility] HospitalAfaxqpzEFNALAADYL3483-18-15 07:55:00 Test Item Value Reference Range Interpretation Comments MCH (test code = MCH) 31.6 pg 27.0-31.0 H [facility] HospitalNpdtuvmJBKNXYIRCR4310-68-53 07:55:00 Test Item Value Reference Range Interpretation Comments Hgb (test code = Hgb) 9.3 12.0-16.0 L [facility] HospitalRapxpwnKNLHAZWESI7617-42-31 07:55:00 Test Item Value Reference Range Interpretation Comments WBC (test code = WBC) 14.3 3.7-10.4 H [facility] HospitalHzpiugjKADKSGONFQ6527-77-62 07:55:00 Test Item Value Reference Range Interpretation Comments RBC (test code = RBC) 2.93 4.20-5.40 L [facility] HospitalYicepzwDATIHRAISS2166-09-95 07:55:00 Test Item Value Reference Range Interpretation Comments Large Plt (test code = Slight *ABN*(02/27/2013 A Large Plt) 02:55:00) [facility] HospitalSenwslmUUXLJRNWDD3274-19-67 07:55:00 Test Item Value Reference Range Interpretation Comments Hypochrom (test code = Slight (02/27/2013 N Hypochrom) 02:55:00) [facility] HospitalWozyppiPYJXSAPTRY0339-35-42 07:55:00 Test Item Value Reference Range Interpretation Comments Polychrom (test code = Slight (02/27/2013 N Polychrom) 02:55:00) [facility] HospitalYoohtbtHPDMGUCJMV0378-15-41 07:55:00 Test Item Value Reference Range Interpretation Comments Anisocyte (test code = 1+ *ABN*(02/27/2013 A Anisocyte) 02:55:00) [facility] HospitalMdavxvrELTQTHQOTA6719-72-67 07:55:00 Test Item Value Reference Range Interpretation Comments Plt Morph (test code = Normal (02/27/2013 N Plt Morph) 02:55:00) [facility] HospitalVnewgmjNHUGUOTKZE1885-60-81 07:55:00 Test Item Value Reference Range Interpretation Comments Macrocyte (test code = 1+ *ABN*(02/27/2013 A Macrocyte) 02:55:00) [facility] HospitalPatpgrtERBYXBWYPV8571-07-76 07:55:00 Test Item Value Reference Range Interpretation Comments Segs (test code = Segs) 72.0 45.0-75.0 N [facility] HospitalOoyapliLZOCEXOOWV8762-88-17 07:55:00 Test Item Value Reference Range Interpretation Comments Monocytes (test code = Monocytes) 6.0 2.0-12.0 N [facility] HospitalSciypuaSXCOHLUPNH2585-71-65 07:55:00 Test Item Value Reference Range Interpretation Comments Bands (test code = 10.0 See_Comment N [Automat ed message] The Bands) system which ge nerated this result transmit matteo reference range : <=11.0. The reference r katie was not used to interpr et this result as miesha l/abnormal. [facility] HospitalVbdxzevTBPKHGNUFG7956-47-19 07:55:00 Test Item Value Reference Range Interpretation Comments Atypical Lymphs (test code = Atypical 0.0 N Lymphs) [facility] HospitalQnrdvggAJZNCXAHYQ4702-00-43 07:55:00 Test Item Value Reference Range Interpretation Comments Lymphocytes (test code = Lymphocytes) 12.0 20.0-40.0 L [facility] HospitalKfyqetxTONYZQLAPC5991-00-32 07:55:00 Test Item Value Reference Range Interpretation Comments Lymphocytes # (test code = Lymphocytes 1.7 1.0-5.5 N #) [facility] HospitalAszenaoQZNYDQPNYM0630-41-36 07:55:00 Test Item Value Reference Range Interpretation Comments Monocytes # (test code 0.9 See_Comment H [Aut omated message] The = Monocytes #) system which generated this result tra nsmitted reference range : <=0.8. The reference r katie was not used to int erpret this result as normal/abnormal . [facility] HospitalPgvcvcbNKFAGVNHVF6253-48-11 07:55:00 Test Item Value Reference Range Interpretation Comments Segs-Bands # (test code = Segs-Bands #) 11.7 1.5-8.1 H [facility]HvnikfrNUCEMNOPZ8451-17-75 07:55:00 Test Item Value Reference Range Interpretation Comments eGFR (test code = eGFR) 61 [facility] CenterGezzusiPGXQQHAWQ3499-27-41 07:55:00 Test Item Value Reference Range Interpretation Comments Calcium Lvl (test code = Calcium Lvl) 8.1 8.5-10.5 L [facility] CenterBotafvpCMDSFCATZ2850-22-85 07:55:00 Test Item Value Reference Range Interpretation Comments AGAP (test code = AGAP) 17.4 10.0-20.0 N [facility] CenterVikvehxYCEKDHSHZ2206-03-14 07:55:00 Test Item Value Reference Range Interpretation Comments Sodium Lvl (test code = Sodium Lvl) 147 135-145 H [facility] CenterRfguqajVJGKPHCFS9850-36-51 07:55:00 Test Item Value Reference Range Interpretation Comments Potassium Lvl (test code = Potassium 3.4 3.5-5.1 L Lvl) [facility] CenterRktgqssVDHSLUCHA0691-87-40 07:55:00 Test Item Value Reference Range Interpretation Comments Creatinine Lvl (test code = Creatinine 1.0 0.5-1.4 N Lvl) [facility] CenterPzfthbqLNACHDRHI2138-73-91 07:55:00 Test Item Value Reference Range Interpretation Comments Chloride Lvl (test code = Chloride Lvl) 104 95-109 N [facility] CenterZojyqdrLVBAEHSFH6484-63-09 07:55:00 Test Item Value Reference Range Interpretation Comments CO2 (test code = CO2) 29 24-32 N [facility] CenterZmifscjTOCYBURVN7888-16-96 07:55:00 Test Item Value Reference Range Interpretation Comments BUN (test code = BUN) 25 7-22 H [facility] CenterTttpyefHXWLIQARN9394-92-84 07:55:00 Test Item Value Reference Range Interpretation Comments Glucose Lvl (test code = Glucose Lvl) 96 70-99 N [facility] HospitalKciosckUCOEQHTLWG6149-51-83 07:55:00 Test Item Value Reference Range Interpretation Comments RDW (test code = RDW) 17.3 11.5-14.5 H [facility] HospitalUhnsspuANPAMWPTIY3682-91-51 07:55:00 Test Item Value Reference Range Interpretation Comments Platelet (test code = Platelet) 249 133-450 N [facility] HospitalEymxxgkWVEZHUHYVH3873-47-65 07:55:00 Test Item Value Reference Range Interpretation Comments MPV (test code = MPV) 7.4 7.4-10.4 N [facility] HospitalYvluhgaPDTMAGNUIO0052-88-38 07:55:00 Test Item Value Reference Range Interpretation Comments MCHC (test code = MCHC) 33.8 32.0-36.0 N [facility] HospitalThigfgbFKXJSAMJWM6908-08-20 07:55:00 Test Item Value Reference Range Interpretation Comments Hct (test code = Hct) 27.3 36.0-48.0 L [facility] HospitalGzwlrzjCNOEZQENHO0864-39-79 07:55:00 Test Item Value Reference Range Interpretation Comments MCV (test code = MCV) 93.3 81.0-99.0 N [facility] HospitalOfbmikgBIIJGOHWPK5931-60-09 07:55:00 Test Item Value Reference Range Interpretation Comments MCH (test code = MCH) 31.6 pg 27.0-31.0 H [facility] HospitalNshtqymMRGZDNIQDN7301-83-07 07:55:00 Test Item Value Reference Range Interpretation Comments Hgb (test code = Hgb) 9.3 12.0-16.0 L [facility] HospitalKqppbrpKSLQYKLGUQ7091-00-09 07:55:00 Test Item Value Reference Range Interpretation Comments WBC (test code = WBC) 14.3 3.7-10.4 H [facility] HospitalRfczmemCJETJSCKKV0796-54-27 07:55:00 Test Item Value Reference Range Interpretation Comments RBC (test code = RBC) 2.93 4.20-5.40 L [facility] HospitalAbnybyfWOKIBTZWGC6406-27-88 07:55:00 Test Item Value Reference Range Interpretation Comments Large Plt (test code = Slight *ABN*(02/27/2013 A Large Plt) 02:55:00) [facility] HospitalWwwkeodXYUQGREJOW6727-36-23 07:55:00 Test Item Value Reference Range Interpretation Comments Hypochrom (test code = Slight (02/27/2013 N Hypochrom) 02:55:00) [facility] HospitalVtqyopeIVXGPYIBRU8468-13-21 07:55:00 Test Item Value Reference Range Interpretation Comments Polychrom (test code = Slight (02/27/2013 N Polychrom) 02:55:00) [facility] HospitalPlmygiaJDLCPGJRFG0292-87-20 07:55:00 Test Item Value Reference Range Interpretation Comments Anisocyte (test code = 1+ *ABN*(02/27/2013 A Anisocyte) 02:55:00) [facility] HospitalHiumgiaNPMUSYVTQO7182-46-67 07:55:00 Test Item Value Reference Range Interpretation Comments Plt Morph (test code = Normal (02/27/2013 N Plt Morph) 02:55:00) [facility] HospitalVxgnhttFVMBILCHLH4101-73-40 07:55:00 Test Item Value Reference Range Interpretation Comments Macrocyte (test code = 1+ *ABN*(02/27/2013 A Macrocyte) 02:55:00) [facility] HospitalEpaigypHTGRJXXSAM4880-12-08 07:55:00 Test Item Value Reference Range Interpretation Comments Segs (test code = Segs) 72.0 45.0-75.0 N [facility] HospitalPqglqsdVGQGCTSGLU6692-47-49 07:55:00 Test Item Value Reference Range Interpretation Comments Monocytes (test code = Monocytes) 6.0 2.0-12.0 N [facility] HospitalOczepeoWWALXEJIHP7394-10-58 07:55:00 Test Item Value Reference Range Interpretation Comments Bands (test code = 10.0 See_Comment N [Automat ed message] The Bands) system which ge nerated this result transmit matteo reference range : <=11.0. The reference r katie was not used to interpr et this result as miesha l/abnormal. [facility] HospitalVbbwpcxYAZWTSWLVA9226-62-52 07:55:00 Test Item Value Reference Range Interpretation Comments Atypical Lymphs (test code = Atypical 0.0 N Lymphs) [facility] HospitalOlnbearCZLLJFLWOA5630-63-52 07:55:00 Test Item Value Reference Range Interpretation Comments Lymphocytes (test code = Lymphocytes) 12.0 20.0-40.0 L [facility] HospitalJcfobxzMNIDUVEGGZ1182-12-69 07:55:00 Test Item Value Reference Range Interpretation Comments Lymphocytes # (test code = Lymphocytes 1.7 1.0-5.5 N #) [facility] HospitalMvrtexsZPPQDMEKMC2199-65-82 07:55:00 Test Item Value Reference Range Interpretation Comments Monocytes # (test code 0.9 See_Comment H [Aut omated message] The = Monocytes #) system which generated this result tra nsmitted reference range : <=0.8. The reference r katie was not used to int erpret this result as normal/abnormal . [facility] HospitalCtcskohVDYDBHYKKC9889-11-23 07:55:00 Test Item Value Reference Range Interpretation Comments Segs-Bands # (test code = Segs-Bands #) 11.7 1.5-8.1 H [facility] CenterPhosydvIKUXQZJCC4360-60-09 07:55:00 Test Item Value Reference Range Interpretation Comments eGFR (test code = eGFR) 61 [facility] CenterUewgtaiYHZQSLNZS8459-46-56 07:55:00 Test Item Value Reference Range Interpretation Comments Calcium Lvl (test code = Calcium Lvl) 8.1 8.5-10.5 L [facility] CenterPocckspQIQMVWHQH8483-24-40 07:55:00 Test Item Value Reference Range Interpretation Comments AGAP (test code = AGAP) 17.4 10.0-20.0 N [facility] CenterTlrjnlpWHRYPVTIN0046-24-76 07:55:00 Test Item Value Reference Range Interpretation Comments Sodium Lvl (test code = Sodium Lvl) 147 135-145 H [facility] CenterSxkijisGJQIXRDPU1771-84-99 07:55:00 Test Item Value Reference Range Interpretation Comments Potassium Lvl (test code = Potassium 3.4 3.5-5.1 L Lvl) [facility] CenterWyngcxlVQZBOIUGD0964-14-46 07:55:00 Test Item Value Reference Range Interpretation Comments Creatinine Lvl (test code = Creatinine 1.0 0.5-1.4 N Lvl) [place] 068323-09-03 07:55:00 Test Item Value Reference Range Interpretation Comments Chloride Lvl (test code = Chloride Lvl) 104 95-109 N [facility] CenterZmgiuumZPRMLJYRN3177-62-05 07:55:00 Test Item Value Reference Range Interpretation Comments CO2 (test code = CO2) 29 24-32 N [facility] CenterNdpholtAZRZFKILK6639-32-00 07:55:00 Test Item Value Reference Range Interpretation Comments BUN (test code = BUN) 25 7-22 H [facility] CenterTntqvehQKRSHGYDA5384-32-62 07:55:00 Test Item Value Reference Range Interpretation Comments Glucose Lvl (test code = Glucose Lvl) 96 70-99 N [facility] HospitalGqyublsRWARXCXHKB2942-11-82 07:55:00 Test Item Value Reference Range Interpretation Comments RDW (test code = RDW) 17.3 11.5-14.5 H [facility] HospitalAjcuofgEUYXYJSZFU3395-34-69 07:55:00 Test Item Value Reference Range Interpretation Comments Platelet (test code = Platelet) 249 133-450 N [facility] HospitalKdhmyqkCFELLDQYLI8474-87-51 07:55:00 Test Item Value Reference Range Interpretation Comments MPV (test code = MPV) 7.4 7.4-10.4 N [facility] HospitalRxiqxhzPEEQSXMCVA4530-63-62 07:55:00 Test Item Value Reference Range Interpretation Comments MCHC (test code = MCHC) 33.8 32.0-36.0 N [facility] HospitalFsxjrebLCDJQNBTES9812-28-63 07:55:00 Test Item Value Reference Range Interpretation Comments Hct (test code = Hct) 27.3 36.0-48.0 L [facility] HospitalAuoubipNPANQNRRVA9903-74-41 07:55:00 Test Item Value Reference Range Interpretation Comments MCV (test code = MCV) 93.3 81.0-99.0 N [facility] HospitalHxpslrxQHLDQHKPLK4356-46-91 07:55:00 Test Item Value Reference Range Interpretation Comments MCH (test code = MCH) 31.6 pg 27.0-31.0 H [facility] HospitalKpqbnffIGXBYASFVH5393-48-36 07:55:00 Test Item Value Reference Range Interpretation Comments Hgb (test code = Hgb) 9.3 12.0-16.0 L [facility] HospitalAbvidwuEAPAQWTKBK7882-57-95 07:55:00 Test Item Value Reference Range Interpretation Comments WBC (test code = WBC) 14.3 3.7-10.4 H [facility] HospitalRpusvjoVOBXJWDHQZ3554-38-73 07:55:00 Test Item Value Reference Range Interpretation Comments RBC (test code = RBC) 2.93 4.20-5.40 L [facility] HospitalAaumbhjQWTUHIZZSX9448-57-23 07:55:00 Test Item Value Reference Range Interpretation Comments Large Plt (test code = Slight *ABN*(02/27/2013 A Large Plt) 02:55:00) [facility] HospitalBrmbppwPZGFUACXIM1353-02-23 07:55:00 Test Item Value Reference Range Interpretation Comments Hypochrom (test code = Slight (02/27/2013 N Hypochrom) 02:55:00) [facility] HospitalTfjqvtzISAHXEURCF5019-75-95 07:55:00 Test Item Value Reference Range Interpretation Comments Polychrom (test code = Slight (02/27/2013 N Polychrom) 02:55:00) [facility] HospitalYhvdmydHSFCSCPHQS7113-59-98 07:55:00 Test Item Value Reference Range Interpretation Comments Anisocyte (test code = 1+ *ABN*(02/27/2013 A Anisocyte) 02:55:00) [facility] HospitalEewqrgzCVOAHQHNJA7412-91-91 07:55:00 Test Item Value Reference Range Interpretation Comments Plt Morph (test code = Normal (02/27/2013 N Plt Morph) 02:55:00) [facility] HospitalYljmaywIXZGOPFUHN6821-10-16 07:55:00 Test Item Value Reference Range Interpretation Comments Macrocyte (test code = 1+ *ABN*(02/27/2013 A Macrocyte) 02:55:00) [facility] HospitalCbbdncnJQYWOZFOZF1221-37-20 07:55:00 Test Item Value Reference Range Interpretation Comments Segs (test code = Segs) 72.0 45.0-75.0 N [facility] HospitalLsgfempVCNBSYGMEP7738-22-50 07:55:00 Test Item Value Reference Range Interpretation Comments Monocytes (test code = Monocytes) 6.0 2.0-12.0 N [facility] HospitalDmddsawGSQMQPJRNI4111-58-61 07:55:00 Test Item Value Reference Range Interpretation Comments Bands (test code = 10.0 See_Comment N [Automat ed message] The Bands) system which ge nerated this result transmit matteo reference range : <=11.0. The reference r katie was not used to interpr et this result as miesha l/abnormal. [facility] HospitalLtyrqaoQTSRHUOVOL7596-18-05 07:55:00 Test Item Value Reference Range Interpretation Comments Atypical Lymphs (test code = Atypical 0.0 N Lymphs) [facility] HospitalPwnptdjUMYNYMGBIR0932-02-14 07:55:00 Test Item Value Reference Range Interpretation Comments Lymphocytes (test code = Lymphocytes) 12.0 20.0-40.0 L [facility] HospitalHqyvlmgZSDUNEVGKE0620-76-24 07:55:00 Test Item Value Reference Range Interpretation Comments Lymphocytes # (test code = Lymphocytes 1.7 1.0-5.5 N #) [facility] HospitalPdcmzikESCIISHBRH0694-66-75 07:55:00 Test Item Value Reference Range Interpretation Comments Monocytes # (test code 0.9 See_Comment H [Aut omated message] The = Monocytes #) system which generated this result tra nsmitted reference range : <=0.8. The reference r katie was not used to int erpret this result as normal/abnormal . [facility] HospitalIugwrrnHXIIIAVXHW5199-29-11 07:55:00 Test Item Value Reference Range Interpretation Comments Segs-Bands # (test code = Segs-Bands #) 11.7 1.5-8.1 H [facility]JmobkniJuhijfdpatte9338-82-43 03:00:26 Test Item Value Reference Range Interpretation Comments Culture: Catheter Tip (test code = Culture: Catheter Tip) [facility] HospitalBvuypydCcpxezcytfja6897-34-68 03:00:26 Test Item Value Reference Range Interpretation Comments Culture: Catheter Tip (test code = Culture: Catheter Tip) [facility] HospitalZizegrwPfjlseaenkjg5515-32-75 03:00:26 Test Item Value Reference Range Interpretation Comments Culture: Catheter Tip (test code = Culture: Catheter Tip) [facility] HospitalEybndwkVokbwuahafda3497-18-89 03:00:26 Test Item Value Reference Range Interpretation Comments Culture: Catheter Tip (test code = Culture: Catheter Tip) [facility] HospitalSksdvtyNujcwchgyqfc1380-08-41 03:00:26 Test Item Value Reference Range Interpretation Comments Culture: Catheter Tip (test code = Culture: Catheter Tip) [facility] HospitalFhkifuiVoskiykqcqxu0055-40-73 03:00:26 Test Item Value Reference Range Interpretation Comments Culture: Catheter Tip (test code = Culture: Catheter Tip) [place] [address]-09-03 03:00:00 Test Item Value Reference Range Interpretation Comments Culture: Catheter Tip (test code = Culture: Catheter Tip) [facility] HospitalHvgzocgVweeupgegqoi0559-30-47 03:00:00 Test Item Value Reference Range Interpretation Comments Culture: Catheter Tip (test code = Culture: Catheter Tip) [facility] HospitalSniqkvzXhzhyrighkaa7146-77-28 03:00:00 Test Item Value Reference Range Interpretation Comments Culture: Catheter Tip (test code = Culture: Catheter Tip) [facility] HospitalUgdrkpmWajwugwgwdhk7064-23-51 03:00:00 Test Item Value Reference Range Interpretation Comments Culture: Catheter Tip (test code = Culture: Catheter Tip) [facility] HospitalViqbrytDhnhcqowsckd9198-01-98 03:00:00 Test Item Value Reference Range Interpretation Comments Culture: Catheter Tip (test code = Culture: Catheter Tip) [facility] HospitalVuircnuHzgpfapxemzb8856-41-53 03:00:00 Test Item Value Reference Range Interpretation Comments Culture: Catheter Tip (test code = Culture: Catheter Tip) [facility]KqyvsgjNRPUTNYEI3786-98-85 20:10:15 Test Item Value Reference Range Interpretation Comments Vanco Tr TND (test code = Vanco Tr TND) 1400 [facility] CenterBrekoftDACPYPNZN1681-15-59 20:10:15 Test Item Value Reference Range Interpretation Comments Vanco Tr (test code = Vanco Tr) 18.9 [facility] CenterXekofzzRTIWUYDDL8725-41-14 20:10:15 Test Item Value Reference Range Interpretation Comments Vanco Tr TND (test code = Vanco Tr TND) 1400 [facility] CenterDrevwpbHRFHXNFCH3361-79-21 20:10:15 Test Item Value Reference Range Interpretation Comments Vanco Tr (test code = Vanco Tr) 18.9 [facility] CenterXtbzzivDLOXTURKJ6193-61-05 20:10:15 Test Item Value Reference Range Interpretation Comments Vanco Tr TND (test code = Vanco Tr TND) 1400 [facility] CenterVamvwssKOQHMMZNB6804-52-70 20:10:15 Test Item Value Reference Range Interpretation Comments Vanco Tr (test code = Vanco Tr) 18.9 [facility] CenterCsftypgXHAECKQAF5023-44-46 20:10:15 Test Item Value Reference Range Interpretation Comments Vanco Tr TND (test code = Vanco Tr TND) 1399 [facility] CenterBbvsbxlBDYIJQMSJ3024-62-13 20:10:15 Test Item Value Reference Range Interpretation Comments Vanco Tr (test code = Vanco Tr) 18.9 [facility] CenterFhdhjzwANPZJXUAS3382-22-49 20:10:15 Test Item Value Reference Range Interpretation Comments Vanco Tr TND (test code = Vanco Tr TND) 1400 [facility] CenterBcmcmreNVBATTPJV0290-28-03 20:10:15 Test Item Value Reference Range Interpretation Comments Vanco Tr (test code = Vanco Tr) 18.9 [facility] CenterErufasuWXNXBHYSV3008-34-81 20:10:15 Test Item Value Reference Range Interpretation Comments Vanco Tr TND (test code = Vanco Tr TND) 1400 [facility] CenterVhakwtxXJIODTOSZ5185-92-55 20:10:15 Test Item Value Reference Range Interpretation Comments Vanco Tr (test code = Vanco Tr) 18.9 [facility] CenterKgsuvrvYBPSBIWUK3238-34-19 18:40:32 Test Item Value Reference Range Interpretation Comments PS Art (test code = PS Art) 12 [facility] CenterBcqimiwGFCMIRQPV4322-42-51 18:40:32 Test Item Value Reference Range Interpretation Comments pH Art (test code = pH Art) 7.51 7.35-7.45 H [facility] CenterSbeobvgGMMCXDRRD2245-46-43 18:40:32 Test Item Value Reference Range Interpretation Comments pCO2 Art (test code = pCO2 Art) 33 35-45 L [facility] CenterVpbdibuVOIIGCTIF9452-26-00 18:40:32 Test Item Value Reference Range Interpretation Comments pO2 Art (test code = pO2 Art) 79 80-100 L [facility] CenterYujvyjoEJKQUTKHD1560-94-67 18:40:32 Test Item Value Reference Range Interpretation Comments HCO3 Art (test code = HCO3 Art) 26 22-26 N [facility] CenterFwtfkdsRXAMINRKF0031-50-00 18:40:32 Test Item Value Reference Range Interpretation Comments BE Art (test code = 4 See_Comment H [Automa matteo message] The BE Art) system which ge nerated this result transmit matteo reference range : <=2. The reference range was not used to interpr et this result as miesha l/abnormal. [facility] CenterTlhomkfZNHSTVMHQ4250-68-98 18:40:32 Test Item Value Reference Range Interpretation Comments O2 Sat Art (test code = O2 Sat Art) 97.0 95.0-100.0 N [facility] CenterBelyrzhKFRYCDOTN8262-77-10 18:40:32 Test Item Value Reference Range Interpretation Comments Site Art (test code = Right Ra (02/26/2013 N Site Art) 13:40:32) [facility]QxfjzjfGOJDZATHZ0198-88-48 18:40:32 Test Item Value Reference Range Interpretation Comments Temp Art (test code = Temp Art) 37.0 [facility]NhdnpjbFSPIBVTCF8894-07-87 18:40:32 Test Item Value Reference Range Interpretation Comments Allens Art (test code Positive (02/26/2013 N = Allens Art) 13:40:32) [facility] CenterVtnmaqzMIPJTJFAG7736-13-79 18:40:32 Test Item Value Reference Range Interpretation Comments Mode Art (test code = Cpap (02/26/2013 N Mode Art) 13:40:32) [facility]EtfhqgtDIAAYYRCH4008-43-82 18:40:32 Test Item Value Reference Range Interpretation Comments FiO2 Art (test code = FiO2 Art) 40.0 [facility]UltnsxvTIANQYIWN6487-16-22 18:40:32 Test Item Value Reference Range Interpretation Comments PEEP Art (test code = PEEP Art) 7.0 [facility]PhgbednVDFTPRSXP1316-83-08 18:40:32 Test Item Value Reference Range Interpretation Comments PS Art (test code = PS Art) 12 [facility]VqgbrvfUWBPSJNPS4111-89-48 18:40:32 Test Item Value Reference Range Interpretation Comments pH Art (test code = pH Art) 7.51 7.35-7.45 H [facility] ArlingtonFyftdqkYZDDJMDCH4411-56-80 18:40:32 Test Item Value Reference Range Interpretation Comments pCO2 Art (test code = pCO2 Art) 33 35-45 L [facility] ArlingtonIystmdiGRYAHDJSA8076-86-29 18:40:32 Test Item Value Reference Range Interpretation Comments pO2 Art (test code = pO2 Art) 79 80-100 L [facility] ArlingtonVwzhjiwVPTACSTKP9433-36-93 18:40:32 Test Item Value Reference Range Interpretation Comments HCO3 Art (test code = HCO3 Art) 26 22-26 N [facility] CenterUimrnegXQVYAHEOW2651-56-36 18:40:32 Test Item Value Reference Range Interpretation Comments BE Art (test code = 4 See_Comment H [Automa matteo message] The BE Art) system which ge nerated this result transmit matteo reference range : <=2. The reference range was not used to interpr et this result as miesha l/abnormal. [facility] [place]vyZMN[place]IPE8356-[place]99 18:40:32 Test Item Value Reference Range Interpretation Comments O2 Sat Art (test code = O2 Sat Art) 97.0 95.0-100.0 N [facility]HznpvqhSAHULGASH6434-60-81 18:40:32 Test Item Value Reference Range Interpretation Comments Site Art (test code = Right Ra (02/26/2013 N Site Art) 13:40:32) [facility] CenterAraesqdJFYVLPRCO5359-48-31 18:40:32 Test Item Value Reference Range Interpretation Comments Temp Art (test code = Temp Art) 37.0 [facility] CenterGywniayVRKMEDUPP2565-03-90 18:40:32 Test Item Value Reference Range Interpretation Comments Allens Art (test code Positive (02/26/2013 N = Allens Art) 13:40:32) [facility] CenterBfodoxjXWQMLDOIT8767-76-10 18:40:32 Test Item Value Reference Range Interpretation Comments Mode Art (test code = Cpap (02/26/2013 N Mode Art) 13:40:32) [facility] CenterWpvhgbeWUCOFRMNZ5527-46-37 18:40:32 Test Item Value Reference Range Interpretation Comments FiO2 Art (test code = FiO2 Art) 40.0 [facility] CenterRoqxmebYZSUJFEYT6922-25-67 18:40:32 Test Item Value Reference Range Interpretation Comments PEEP Art (test code = PEEP Art) 7.0 [facility] CenterNdfrjyoBGBYUJJLT7598-11-06 18:40:32 Test Item Value Reference Range Interpretation Comments PS Art (test code = PS Art) 12 [facility] CenterVapdlqlWJJRETUDW9855-61-72 18:40:32 Test Item Value Reference Range Interpretation Comments pH Art (test code = pH Art) 7.51 7.35-7.45 H [facility] CenterSoyruphQJTOFFXZZ9131-60-11 18:40:32 Test Item Value Reference Range Interpretation Comments pCO2 Art (test code = pCO2 Art) 33 35-45 L [facility] CenterObbixjhCGAQTSXUN6082-46-25 18:40:32 Test Item Value Reference Range Interpretation Comments pO2 Art (test code = pO2 Art) 79 80-100 L [facility] CenterHjspvgiSQADWLYEG4377-69-86 18:40:32 Test Item Value Reference Range Interpretation Comments HCO3 Art (test code = HCO3 Art) 26 22-26 N [facility] CenterHsnhehdVASNTNGME4773-68-69 18:40:32 Test Item Value Reference Range Interpretation Comments BE Art (test code = 4 See_Comment H [Automa matteo message] The BE Art) system which ge nerated this result transmit matteo reference range : <=2. The reference range was not used to interpr et this result as miesha l/abnormal. [facility]SrrfaehNFVOMFQTP3002-52-00 18:40:32 Test Item Value Reference Range Interpretation Comments O2 Sat Art (test code = O2 Sat Art) 97.0 95.0-100.0 N [facility] ArlingtonUdsmtopFWVMIGNFN3532-73-40 18:40:32 Test Item Value Reference Range Interpretation Comments Site Art (test code = Right Ra (02/26/2013 N Site Art) 13:40:32) [facility] ArlingtonQlflhmzIGBSTZKSG1554-05-70 18:40:32 Test Item Value Reference Range Interpretation Comments Temp Art (test code = Temp Art) 37.0 [facility] ArlingtonWcmhqgoEKGUMGZCA3162-59-85 18:40:32 Test Item Value Reference Range Interpretation Comments Allens Art (test code Positive (02/26/2013 N = Allens Art) 13:40:32) [facility] ArlingtonFtgkharKINSVRWAK8812-97-03 18:40:32 Test Item Value Reference Range Interpretation Comments Mode Art (test code = Cpap (02/26/2013 N Mode Art) 13:40:32) [facility] ArlingtonAdoabiaJSIXDWFCN8116-94-85 18:40:32 Test Item Value Reference Range Interpretation Comments FiO2 Art (test code = FiO2 Art) 40.0 [facility] ArlingtonYbjlbmaBFNQMAXFP9479-59-96 18:40:32 Test Item Value Reference Range Interpretation Comments PEEP Art (test code = PEEP Art) 7.0 [facility] ArlingtonQzzhbodZDQLOVRHF5818-58-34 18:40:32 Test Item Value Reference Range Interpretation Comments PS Art (test code = PS Art) 12 [facility] ArlingtonTruclitGFJAEJDFI9567-54-33 18:40:32 Test Item Value Reference Range Interpretation Comments pH Art (test code = pH Art) 7.51 7.35-7.45 H [facility] ArlingtonYijdzvjACNCVJCUF9146-86-13 18:40:32 Test Item Value Reference Range Interpretation Comments pCO2 Art (test code = pCO2 Art) 33 35-[address] [facility] HospitalLsokodjPBFDYTHJT7776-63-46 18:40:32 Test Item Value Reference Range Interpretation Comments pO2 Art (test code = pO2 Art) 79 80-100 L [facility] CenterMstmzuwOBIBKMYTP0276-06-73 18:40:32 Test Item Value Reference Range Interpretation Comments HCO3 Art (test code = HCO3 Art) 26 22-26 N [facility] CenterQtohjroATYWLXJOL8083-92-05 18:40:32 Test Item Value Reference Range Interpretation Comments BE Art (test code = 4 See_Comment H [Automa matteo message] The BE Art) system which ge nerated this result transmit matteo reference range : <=2. The reference range was not used to interpr et this result as miesha l/abnormal. [facility] CenterFtyjtzyHKVMEBWUF3670-87-46 18:40:32 Test Item Value Reference Range Interpretation Comments O2 Sat Art (test code = O2 Sat Art) 97.0 95.0-100.0 N [facility] CenterLuynhqhGTMEOENXM1532-67-52 18:40:32 Test Item Value Reference Range Interpretation Comments Site Art (test code = Right Ra (02/26/2013 N Site Art) 13:40:32) [facility] CenterGzbdehuTNXWIXKNK7143-84-13 18:40:32 Test Item Value Reference Range Interpretation Comments Temp Art (test code = Temp Art) 37.0 [facility] CenterLfjmzsvPOKPFFQZC9314-52-45 18:40:32 Test Item Value Reference Range Interpretation Comments Allens Art (test code Positive (02/26/2013 N = Allens Art) 13:40:32) [facility] CenterUminwerHOWJEHSUK4187-65-29 18:40:32 Test Item Value Reference Range Interpretation Comments Mode Art (test code = Cpap (02/26/2013 N Mode Art) 13:40:32) [facility] CenterGbcbhisQFQGNGMFJ8358-89-79 18:40:32 Test Item Value Reference Range Interpretation Comments FiO2 Art (test code = FiO2 Art) 40.0 [facility] CenterVklxephYCURBWKGE3723-75-39 18:40:32 Test Item Value Reference Range Interpretation Comments PEEP Art (test code = PEEP Art) 7.0 [facility] CenterXevhjmfLUIXGYAMK8135-18-00 18:40:32 Test Item Value Reference Range Interpretation Comments PS Art (test code = PS Art) 12 [facility] CenterAdcicxtJFBOSMNAZ4803-70-16 18:40:32 Test Item Value Reference Range Interpretation Comments pH Art (test code = pH Art) 7.51 7.35-7.45 H [facility] CenterEjityjsRCTHVZACD6611-92-51 18:40:32 Test Item Value Reference Range Interpretation Comments pCO2 Art (test code = pCO2 Art) 33 35-45 L [facility] CenterMykodwyAKPOTQXNU2974-20-87 18:40:32 Test Item Value Reference Range Interpretation Comments pO2 Art (test code = pO2 Art) 79 80-100 L [facility] CenterVtvtkwoEEUTAJEAJ6496-00-37 18:40:32 Test Item Value Reference Range Interpretation Comments HCO3 Art (test code = HCO3 Art) 26 22-26 N [facility] CenterXzyamgzGELOJWJHR2167-26-14 18:40:32 Test Item Value Reference Range Interpretation Comments BE Art (test code = 4 See_Comment H [Automa matteo message] The BE Art) system which ge nerated this result transmit matteo reference range : <=2. The reference range was not used to interpr et this result as miesha l/abnormal. [facility] ArlingtonHdijtmoTDTCIGQTT6294-36-86 18:40:32 Test Item Value Reference Range Interpretation Comments O2 Sat Art (test code = O2 Sat Art) 97.0 95.0-100.[address] [facility] HospitalHmcfptyXXYSMAXVS0787-23-16 18:40:32 Test Item Value Reference Range Interpretation Comments Site Art (test code = Right Ra (02/26/2013 N Site Art) 13:40:32) [facility] CenterFijlqczWTCCGEDVH4581-02-24 18:40:32 Test Item Value Reference Range Interpretation Comments Temp Art (test code = Temp Art) 37.0 [facility] HospitalOygspdiWZSLQBAFD3390-27-65 18:40:32 Test Item Value Reference Range Interpretation Comments Allens Art (test code Positive (02/26/2013 N = Allens Art) 13:40:32) [facility] ArlingtonLszlwwcRXUYABMUF4299-66-90 18:40:32 Test Item Value Reference Range Interpretation Comments Mode Art (test code = Cpap (02/26/2013 N Mode Art) 13:40:32) [facility] ArlingtonUriynrrYYNQTDQYP2652-34-84 18:40:32 Test Item Value Reference Range Interpretation Comments FiO2 Art (test code = FiO2 Art) 40.0 [facility] ArlingtonHmkrwfxHZPZBIHFM4112-94-11 18:40:32 Test Item Value Reference Range Interpretation Comments PEEP Art (test code = PEEP Art) 7.0 [facility] ArlingtonTxutzneXSHALYPFN0867-59-31 18:40:32 Test Item Value Reference Range Interpretation Comments PS Art (test code = PS Art) 12 [facility] CenterGtngushLTOIYDWER5064-01-81 18:40:32 Test Item Value Reference Range Interpretation Comments pH Art (test code = pH Art) 7.51 7.35-7.45 H [facility] CenterIcbatuwYQXUHQITI0238-84-71 18:40:32 Test Item Value Reference Range Interpretation Comments pCO2 Art (test code = pCO2 Art) 33 35-45 L [facility] CenterQbnlfncUSFMODPYT5788-22-33 18:40:32 Test Item Value Reference Range Interpretation Comments pO2 Art (test code = pO2 Art) 79 80-100 L [facility] CenterTlolazoOUOEPUZUS5172-96-70 18:40:32 Test Item Value Reference Range Interpretation Comments HCO3 Art (test code = HCO3 Art) 26 22-26 N [facility] CenterEkplzxbKIUUYRKKB6210-93-83 18:40:32 Test Item Value Reference Range Interpretation Comments BE Art (test code = 4 See_Comment H [Automa matteo message] The BE Art) system which ge nerated this result transmit matteo reference range : <=2. The reference range was not used to interpr et this result as miesha l/abnormal. [facility] ArlingtonPimbopoULEHSPBUA2566-63-69 18:40:32 Test Item Value Reference Range Interpretation Comments O2 Sat Art (test code = O2 Sat Art) 97.0 95.0-100.0 N [facility] CenterQifztgfEAVKUWZIJ5316-41-48 18:40:32 Test Item Value Reference Range Interpretation Comments Site Art (test code = Right Ra (02/26/2013 N Site Art) 13:40:32) [facility] ArlingtonVfepptxEBMXRNCGK2282-10-17 18:40:32 Test Item Value Reference Range Interpretation Comments Temp Art (test code = Temp Art) 37.0 [facility] ArlingtonUaczbcrLFICUYCFN9330-61-29 18:40:32 Test Item Value Reference Range Interpretation Comments Allens Art (test code Positive (02/26/2013 N = Allens Art) 13:40:32) [facility] ArlingtonBhpgcatKOHEGHARO7113-02-75 18:40:32 Test Item Value Reference Range Interpretation Comments Mode Art (test code = Cpap (02/26/2013 N Mode Art) 13:40:32) [facility] ArlingtonIzzubueKJPMCLLAE6392-61-18 18:40:32 Test Item Value Reference Range Interpretation Comments FiO2 Art (test code = FiO2 Art) 40.0 [facility] HospitalScrbnuvYMVGIFZOI0016-69-84 18:40:32 Test Item Value Reference Range Interpretation Comments PEEP Art (test code = PEEP Art) 7.0 [facility] CenterLtpynbbFAPFLWHJE6989-17-99 10:10:26 Test Item Value Reference Range Interpretation Comments BE Art (test code = 0 See_Comment N [Automa matteo message] The BE Art) system which ge nerated this result transmit matteo reference range : <=2. The reference range was not used to interpr et this result as miesha l/abnormal. [facility] CenterBpaqticPZHTFCJHF1881-78-43 10:10:26 Test Item Value Reference Range Interpretation Comments HCO3 Art (test code = HCO3 Art) 23 22-26 N [facility] CenterBysmwnzFKLMKKAYB3266-99-68 10:10:26 Test Item Value Reference Range Interpretation Comments Temp Art (test code = Temp Art) 37.0 [facility] CenterWmtpeceTLYPMHYYE7839-84-62 10:10:26 Test Item Value Reference Range Interpretation Comments O2 Sat Art (test code = O2 Sat Art) 97.8 95.0-100.0 N [facility] CenterJmantvjRDMKJWWBB4584-38-28 10:10:26 Test Item Value Reference Range Interpretation Comments Site Art (test code = A Line (02/26/2013 N Site Art) 05:10:26) [facility] CenterWmshqefGIASQVNCS8798-40-78 10:10:26 Test Item Value Reference Range Interpretation Comments Rate Art (test code = Rate Art) 12 [facility] CenterNqjjdylINIJEYLZJ3063-56-21 10:10:26 Test Item Value Reference Range Interpretation Comments Mode Art (test code = A/C (02/26/2013 N Mode Art) 05:10:26) [facility] CenterNfagockGNLWZHWNO2312-89-89 10:10:26 Test Item Value Reference Range Interpretation Comments Vt Art (test code = Vt Art) 400 [facility] CenterBgefrcrINLOMULIX4214-04-82 10:10:26 Test Item Value Reference Range Interpretation Comments pH Art (test code = pH Art) 7.46 7.35-7.45 H [facility] CenterQfwhgxoAGNVLDNBV8879-99-10 10:10:26 Test Item Value Reference Range Interpretation Comments pCO2 Art (test code = pCO2 Art) 32 35-45 L [facility] CenterTcuikxlUFTWOMJBE6464-25-33 10:10:26 Test Item Value Reference Range Interpretation Comments pO2 Art (test code = pO2 Art) 96 80-100 N [place] 068323-09-02 10:10:26 Test Item Value Reference Range Interpretation Comments FiO2 Art (test code = FiO2 Art) 40.0 [facility] CenterUxjcttfKIXZXVTTP7494-08-23 10:10:26 Test Item Value Reference Range Interpretation Comments PEEP Art (test code = PEEP Art) 10.0 [facility] CenterHrqczjbUSQETAWSA4052-08-42 10:10:26 Test Item Value Reference Range Interpretation Comments BE Art (test code = 0 See_Comment N [Automa matteo message] The BE Art) system which ge nerated this result transmit matteo reference range : <=2. The reference range was not used to interpr et this result as miesha l/abnormal. [facility] CenterHlinslzZLAEJHTYK8640-18-74 10:10:26 Test Item Value Reference Range Interpretation Comments HCO3 Art (test code = HCO3 Art) 23 22-26 N [facility] CenterMjhjucyNKIURUDFY4513-18-39 10:10:26 Test Item Value Reference Range Interpretation Comments Temp Art (test code = Temp Art) 37.0 [facility] CenterSicclakFDIQOPYOL5779-76-79 10:10:26 Test Item Value Reference Range Interpretation Comments O2 Sat Art (test code = O2 Sat Art) 97.8 95.0-100.0 N [facility] CenterHzemcndHFEIXHZMO8386-97-85 10:10:26 Test Item Value Reference Range Interpretation Comments Site Art (test code = A Line (02/26/2013 N Site Art) 05:10:26) [facility] CenterSsowsnxKLLBXNBQZ8760-55-79 10:10:26 Test Item Value Reference Range Interpretation Comments Rate Art (test code = Rate Art) 12 [facility] CenterUwbqqkiJYRWKGHIC4335-54-28 10:10:26 Test Item Value Reference Range Interpretation Comments Mode Art (test code = A/C (02/26/2013 N Mode Art) 05:10:26) [facility] CenterEkoiokxQCLCTXSHV6772-43-77 10:10:26 Test Item Value Reference Range Interpretation Comments Vt Art (test code = Vt Art) 400 [facility] CenterFejyeqmFITRCNQDR7462-88-45 10:10:26 Test Item Value Reference Range Interpretation Comments pH Art (test code = pH Art) 7.46 7.35-7.45 H [facility] CenterWtqikwdUOPZJCTQE4710-71-73 10:10:26 Test Item Value Reference Range Interpretation Comments pCO2 Art (test code = pCO2 Art) 32 35-45 L [facility] CenterWjlanhrEUDFRHGLL2999-56-08 10:10:26 Test Item Value Reference Range Interpretation Comments pO2 Art (test code = pO2 Art) 96 80-100 N [facility] CenterHfljedqGFVSLCQPF7656-03-81 10:10:26 Test Item Value Reference Range Interpretation Comments FiO2 Art (test code = FiO2 Art) 40.0 [facility] CenterGmggpdvCVDMJSIGD7232-43-15 10:10:26 Test Item Value Reference Range Interpretation Comments PEEP Art (test code = PEEP Art) 10.0 [facility] CenterWpvuyogEWPNUMVDI4244-00-80 10:10:26 Test Item Value Reference Range Interpretation Comments BE Art (test code = 0 See_Comment N [Automa matteo message] The BE Art) system which ge nerated this result transmit matteo reference range : <=2. The reference range was not used to interpr et this result as miesha l/abnormal. [facility] CenterQfoicfxIKNPKATFS4663-57-37 10:10:26 Test Item Value Reference Range Interpretation Comments HCO3 Art (test code = HCO3 Art) 23 22-26 N [facility] CenterBoluqaeUXJVKPADM0324-59-36 10:10:26 Test Item Value Reference Range Interpretation Comments Temp Art (test code = Temp Art) 37.0 [facility] CenterAbkxatzKGPAJKJEB0047-11-09 10:10:26 Test Item Value Reference Range Interpretation Comments O2 Sat Art (test code = O2 Sat Art) 97.8 95.0-100.0 N [facility] CenterFsglscnJMBHTUIQP4277-67-29 10:10:26 Test Item Value Reference Range Interpretation Comments Site Art (test code = A Line (02/26/2013 N Site Art) 05:10:26) [facility] CenterQdvgkalQPFXSDTDX2759-84-77 10:10:26 Test Item Value Reference Range Interpretation Comments Rate Art (test code = Rate Art) 12 [facility] CenterRbjnsvdPBJOCAMTU3253-60-44 10:10:26 Test Item Value Reference Range Interpretation Comments Mode Art (test code = A/C (02/26/2013 N Mode Art) 05:10:26) [facility] CenterMgtlxyvLSRAHGOET9433-07-04 10:10:26 Test Item Value Reference Range Interpretation Comments Vt Art (test code = Vt Art) 400 [facility] CenterMunykpzPGXIJIFMP1757-12-86 10:10:26 Test Item Value Reference Range Interpretation Comments pH Art (test code = pH Art) 7.46 7.35-7.45 H [facility] CenterWyzedgnPCJXINMBH1277-20-31 10:10:26 Test Item Value Reference Range Interpretation Comments pCO2 Art (test code = pCO2 Art) 32 35-45 L [facility] CenterDblbfzhFYQHVPCHS5411-88-74 10:10:26 Test Item Value Reference Range Interpretation Comments pO2 Art (test code = pO2 Art) 96 80-100 N [facility] CenterAitrfncSSGAZIQEY7479-66-05 10:10:26 Test Item Value Reference Range Interpretation Comments FiO2 Art (test code = FiO2 Art) 40.0 [facility] CenterCnxcunkUYZXRZOAE4960-15-64 10:10:26 Test Item Value Reference Range Interpretation Comments PEEP Art (test code = PEEP Art) 10.0 [facility] CenterKdhxspbPUCFYGWIB2214-63-24 10:10:26 Test Item Value Reference Range Interpretation Comments BE Art (test code = 0 See_Comment N [Automa matteo message] The BE Art) system which ge nerated this result transmit matteo reference range : <=2. The reference range was not used to interpr et this result as miesha l/abnormal. [facility] CenterPaqagudQIIHPTXQY4811-10-45 10:10:26 Test Item Value Reference Range Interpretation Comments HCO3 Art (test code = HCO3 Art) 23 22-26 N [facility] CenterJphdnvzJNGRWYRWP6266-43-14 10:10:26 Test Item Value Reference Range Interpretation Comments Temp Art (test code = Temp Art) 37.0 [facility] CenterLssdbupMOEONGTLS5519-21-81 10:10:26 Test Item Value Reference Range Interpretation Comments O2 Sat Art (test code = O2 Sat Art) 97.8 95.0-100.0 N [facility] CenterCylgeipPKFLZWKTL2863-02-90 10:10:26 Test Item Value Reference Range Interpretation Comments Site Art (test code = A Line (02/26/2013 N Site Art) 05:10:26) [facility] CenterClksiqnYGXOFDMCH7727-73-68 10:10:26 Test Item Value Reference Range Interpretation Comments Rate Art (test code = Rate Art) 12 [facility] CenterAiubuzbFSOLZIXZR9552-50-78 10:10:26 Test Item Value Reference Range Interpretation Comments Mode Art (test code = A/C (02/26/2013 N Mode Art) 05:10:26) [facility] CenterGgjmwwoGYOKYVVTQ3466-31-75 10:10:26 Test Item Value Reference Range Interpretation Comments Vt Art (test code = Vt Art) 400 [facility] CenterDikllafOUSRGASVN2751-45-26 10:10:26 Test Item Value Reference Range Interpretation Comments pH Art (test code = pH Art) 7.46 7.35-7.45 H [facility] CenterUcsgnmnBWSNMFXSW3991-44-27 10:10:26 Test Item Value Reference Range Interpretation Comments pCO2 Art (test code = pCO2 Art) 32 35-45 L [facility] CenterNjudvkcMIQZTXBJX9542-55-25 10:10:26 Test Item Value Reference Range Interpretation Comments pO2 Art (test code = pO2 Art) 96 80-100 N [facility] CenterPuopehkBKFLZWOMV0483-94-25 10:10:26 Test Item Value Reference Range Interpretation Comments FiO2 Art (test code = FiO2 Art) 40.0 [facility] CenterZdjnuucQZEMMMAEA6041-27-54 10:10:26 Test Item Value Reference Range Interpretation Comments PEEP Art (test code = PEEP Art) 10.0 [facility] CenterQrgzvdcLQHWJGWRT7687-85-53 10:10:26 Test Item Value Reference Range Interpretation Comments BE Art (test code = 0 See_Comment N [Automa matteo message] The BE Art) system which ge nerated this result transmit matteo reference range : <=2. The reference range was not used to interpr et this result as miesha l/abnormal. [facility] CenterTuxaivdAHHXCUSIJ4598-28-69 10:10:26 Test Item Value Reference Range Interpretation Comments HCO3 Art (test code = HCO3 Art) 23 22-26 N [facility] CenterTjwbeupWCBKIHXRU6432-65-87 10:10:26 Test Item Value Reference Range Interpretation Comments Temp Art (test code = Temp Art) 37.0 [facility] CenterTtbdpxpVQSJCAANG5558-06-50 10:10:26 Test Item Value Reference Range Interpretation Comments O2 Sat Art (test code = O2 Sat Art) 97.8 95.0-100.0 N [facility] CenterIeycjcfRDYLMVTNK3852-40-79 10:10:26 Test Item Value Reference Range Interpretation Comments Site Art (test code = A Line (02/26/2013 N Site Art) 05:10:26) [facility] CenterYbacwiqGVQHSFDAQ1998-75-39 10:10:26 Test Item Value Reference Range Interpretation Comments Rate Art (test code = Rate Art) 12 [facility] CenterQmdacfjZTKYWWRKR1045-18-23 10:10:26 Test Item Value Reference Range Interpretation Comments Mode Art (test code = A/C (02/26/2013 N Mode Art) 05:10:26) [facility] CenterQdqrhteZLTDNWHXC7237-78-61 10:10:26 Test Item Value Reference Range Interpretation Comments Vt Art (test code = Vt Art) 400 [facility] CenterQeyfgqmSJIJVHFEI6539-60-97 10:10:26 Test Item Value Reference Range Interpretation Comments pH Art (test code = pH Art) 7.46 7.35-7.45 H [facility] CenterXendtlgVEKFSHGGH7297-82-15 10:10:26 Test Item Value Reference Range Interpretation Comments pCO2 Art (test code = pCO2 Art) 32 35-45 L [facility] CenterLiuefvnQVOQXLYDP5857-17-98 10:10:26 Test Item Value Reference Range Interpretation Comments pO2 Art (test code = pO2 Art) 96 80-100 N [facility] CenterCkukptgXUUMMQMCN0665-70-05 10:10:26 Test Item Value Reference Range Interpretation Comments FiO2 Art (test code = FiO2 Art) 40.0 [facility] CenterMsydwacYSVWSOIDW9035-22-66 10:10:26 Test Item Value Reference Range Interpretation Comments PEEP Art (test code = PEEP Art) 10.0 [facility] CenterEgoaybfEOZYQSOFA3033-40-33 10:10:26 Test Item Value Reference Range Interpretation Comments BE Art (test code = 0 See_Comment N [Automa matteo message] The BE Art) system which ge nerated this result transmit matteo reference range : <=2. The reference range was not used to interpr et this result as miesha l/abnormal. [facility] CenterXwehukjSPDIGKQYN0652-06-65 10:10:26 Test Item Value Reference Range Interpretation Comments HCO3 Art (test code = HCO3 Art) 23 22-26 N [facility] CenterNvogshxKYTTYNZYO9606-57-63 10:10:26 Test Item Value Reference Range Interpretation Comments Temp Art (test code = Temp Art) 37.0 [facility] CenterOzqdilpVWKAVMUMC3279-98-24 10:10:26 Test Item Value Reference Range Interpretation Comments O2 Sat Art (test code = O2 Sat Art) 97.8 95.0-100.0 N [facility] CenterZcaenmlRYSUXRNPH0418-99-22 10:10:26 Test Item Value Reference Range Interpretation Comments Site Art (test code = A Line (02/26/2013 N Site Art) 05:10:26) [facility] CenterKxxibjvQZSIAERUR3307-93-42 10:10:26 Test Item Value Reference Range Interpretation Comments Rate Art (test code = Rate Art) 12 [facility] CenterRqpboagMULCEIIAQ0152-08-03 10:10:26 Test Item Value Reference Range Interpretation Comments Mode Art (test code = A/C (02/26/2013 N Mode Art) 05:10:26) [facility] CenterGpvverrTHXDCTYBC4811-12-19 10:10:26 Test Item Value Reference Range Interpretation Comments Vt Art (test code = Vt Art) 400 [facility] CenterHsteojyTFUILWUAL9867-52-97 10:10:26 Test Item Value Reference Range Interpretation Comments pH Art (test code = pH Art) 7.46 7.35-7.45 H [facility] CenterRbtaoaeTWBMMUSPH1110-17-55 10:10:26 Test Item Value Reference Range Interpretation Comments pCO2 Art (test code = pCO2 Art) 32 35-45 L [facility] CenterWyiuiezBFYKIIUNS9461-60-71 10:10:26 Test Item Value Reference Range Interpretation Comments pO2 Art (test code = pO2 Art) 96 80-100 N [facility] CenterQcrefkbAWGHEPCCM8670-27-61 10:10:26 Test Item Value Reference Range Interpretation Comments FiO2 Art (test code = FiO2 Art) 40.0 [facility] CenterBwaxrwmNXSBVVFSQ5999-58-13 10:10:26 Test Item Value Reference Range Interpretation Comments PEEP Art (test code = PEEP Art) 10.0 [facility] CenterOcuxtikWPXWHXEFM2970-69-53 10:00:55 Test Item Value Reference Range Interpretation Comments Vanco Lvl (test code = Vanco Lvl) 33.3 [facility]KbsrakhFUBFTFJKR3294-52-55 10:00:55 Test Item Value Reference Range Interpretation Comments Vanco Lvl (test code = Vanco Lvl) 33.3 [facility] CenterYoxavnrHTMNAGGLP7268-31-31 10:00:55 Test Item Value Reference Range Interpretation Comments Vanco Lvl (test code = Vanco Lvl) 33.3 [facility] CenterQdqwfzuXHJGYPQJS0443-44-98 10:00:55 Test Item Value Reference Range Interpretation Comments Vanco Lvl (test code = Vanco Lvl) 33.3 [facility] CenterCkyxxksOCXYNXCCF5211-87-26 10:00:55 Test Item Value Reference Range Interpretation Comments Vanco Lvl (test code = Vanco Lvl) 33.3 [facility] CenterDlkspsnKODOSYPTM6774-10-21 10:00:55 Test Item Value Reference Range Interpretation Comments Vanco Lvl (test code = Vanco Lvl) 33.3 [facility] CenterKzswzkeMEJILNLDM2470-30-92 10:00:34 Test Item Value Reference Range Interpretation Comments eGFR (test code = eGFR) 61 [facility] CenterRiqdzfsYOFKCZRFR2092-07-19 10:00:34 Test Item Value Reference Range Interpretation Comments Calcium Lvl (test code = Calcium Lvl) 9.1 8.5-10.5 N [facility] CenterDjteibvFOSPMINLX2596-72-50 10:00:34 Test Item Value Reference Range Interpretation Comments Sodium Lvl (test code = Sodium Lvl) 147 135-145 H [facility] CenterTouwdmqWKHBTPZEJ9272-64-20 10:00:34 Test Item Value Reference Range Interpretation Comments Potassium Lvl (test code = Potassium 3.7 3.5-5.1 N Lvl) [facility] CenterNarfujhUBPEIXLMM4159-49-06 10:00:34 Test Item Value Reference Range Interpretation Comments Chloride Lvl (test code = Chloride Lvl) 113 95-109 H [facility] CenterAjfawmoUTCKMXUFW7148-56-89 10:00:34 Test Item Value Reference Range Interpretation Comments CO2 (test code = CO2) 24 24-32 N [facility] CenterLuxguxzTJXYWGCVO0054-23-71 10:00:34 Test Item Value Reference Range Interpretation Comments Glucose Lvl (test code = Glucose Lvl) 136 70-99 H [facility] CenterCjrzftlHDICHVAFV6251-24-99 10:00:34 Test Item Value Reference Range Interpretation Comments BUN (test code = BUN) 25 7-22 H [facility] CenterTedicstTAQOALIIT2498-19-85 10:00:34 Test Item Value Reference Range Interpretation Comments Creatinine Lvl (test code = Creatinine 1.0 0.5-1.4 N Lvl) [facility] CenterKucixakZCUGUAXVU0065-46-00 10:00:34 Test Item Value Reference Range Interpretation Comments AGAP (test code = AGAP) 13.7 10.0-20.0 N [facility] CenterSopxzftURFAMEQWH7011-37-85 10:00:34 Test Item Value Reference Range Interpretation Comments Ca Norm WB (test code = Ca Norm WB) 1.22 1.05-1.25 N [facility] CenterAvehscwKICOMDHMA1390-64-67 10:00:34 Test Item Value Reference Range Interpretation Comments Ca Ion WB (test code = Ca Ion WB) 1.20 1.05-1.25 N [facility] CenterYvzetbkHXHHZSLHA7405-36-52 10:00:34 Test Item Value Reference Range Interpretation Comments eGFR (test code = eGFR) 61 [facility] CenterDdvfonrIJDCZDLSQ1624-17-42 10:00:34 Test Item Value Reference Range Interpretation Comments Calcium Lvl (test code = Calcium Lvl) 9.1 8.5-10.5 N [facility] CenterLsehafsLJHSZSNDA2925-37-97 10:00:34 Test Item Value Reference Range Interpretation Comments Sodium Lvl (test code = Sodium Lvl) 147 135-145 H [facility] CenterByqplxcHWVDUBUCZ2104-15-32 10:00:34 Test Item Value Reference Range Interpretation Comments Potassium Lvl (test code = Potassium 3.7 3.5-5.1 N Lvl) [facility] CenterKxjoltaIKMWBTNJH1450-38-01 10:00:34 Test Item Value Reference Range Interpretation Comments Chloride Lvl (test code = Chloride Lvl) 113 95-109 H [facility] CenterLldccyeFRJFLJHBO7143-52-16 10:00:34 Test Item Value Reference Range Interpretation Comments CO2 (test code = CO2) 24 24-32 N [facility] CenterAotxmsbSCYLTZZRD0371-17-65 10:00:34 Test Item Value Reference Range Interpretation Comments Glucose Lvl (test code = Glucose Lvl) 136 70-99 H [facility] CenterAfjlvhsNSEDJXDCD6521-47-68 10:00:34 Test Item Value Reference Range Interpretation Comments BUN (test code = BUN) 25 7-22 H [facility] CenterTkbkqhfEZPUMXIRI2694-40-50 10:00:34 Test Item Value Reference Range Interpretation Comments Creatinine Lvl (test code = Creatinine 1.0 0.5-1.4 N Lvl) [facility] CenterYmdfjcvAJMLMBAUV2614-69-04 10:00:34 Test Item Value Reference Range Interpretation Comments AGAP (test code = AGAP) 13.7 10.0-20.0 N [facility] CenterBwgckzxVRJDOFQMQ6040-05-07 10:00:34 Test Item Value Reference Range Interpretation Comments Ca Norm WB (test code = Ca Norm WB) 1.22 1.05-1.25 N [facility] CenterRilmdotTUNEHUTBT7073-50-45 10:00:34 Test Item Value Reference Range Interpretation Comments Ca Ion WB (test code = Ca Ion WB) 1.20 1.05-1.25 N [facility] CenterVxpldifWEYSFCGRX3581-27-59 10:00:34 Test Item Value Reference Range Interpretation Comments eGFR (test code = eGFR) 61 [facility] CenterKpkqnacJJJONEKHM5130-09-09 10:00:34 Test Item Value Reference Range Interpretation Comments Calcium Lvl (test code = Calcium Lvl) 9.1 8.5-10.5 N [facility] CenterCoacsvsRASMRKWPD9777-33-72 10:00:34 Test Item Value Reference Range Interpretation Comments Sodium Lvl (test code = Sodium Lvl) 147 135-145 H [facility] CenterPhdrgaxZWVQOAVME3892-90-39 10:00:34 Test Item Value Reference Range Interpretation Comments Potassium Lvl (test code = Potassium 3.7 3.5-5.1 N Lvl) [facility] CenterHeopfpjFXUHHJOQR6906-54-29 10:00:34 Test Item Value Reference Range Interpretation Comments Chloride Lvl (test code = Chloride Lvl) 113 95-109 H [facility] CenterLllkzlrNITKHXXDI4017-64-79 10:00:34 Test Item Value Reference Range Interpretation Comments CO2 (test code = CO2) 24 24-32 N [facility] CenterBwiwrpoEQIVNPSAJ4052-65-25 10:00:34 Test Item Value Reference Range Interpretation Comments Glucose Lvl (test code = Glucose Lvl) 136 70-99 H [facility] CenterLntsumqVNVCGZPPP0713-18-24 10:00:34 Test Item Value Reference Range Interpretation Comments BUN (test code = BUN) 25 7-22 H [facility] CenterLvxmmtiGHIRIPTRN9923-35-35 10:00:34 Test Item Value Reference Range Interpretation Comments Creatinine Lvl (test code = Creatinine 1.0 0.5-1.4 N Lvl) [facility] CenterIskmwnqAODOLJGBO1651-35-57 10:00:34 Test Item Value Reference Range Interpretation Comments AGAP (test code = AGAP) 13.7 10.0-20.0 N [facility] CenterFherjxtNFCPRHAIK5375-20-45 10:00:34 Test Item Value Reference Range Interpretation Comments Ca Norm WB (test code = Ca Norm WB) 1.22 1.05-1.25 N [facility] CenterUgyzruqLESHJJYRY3338-70-13 10:00:34 Test Item Value Reference Range Interpretation Comments Ca Ion WB (test code = Ca Ion WB) 1.20 1.05-1.25 N [facility] CenterZyyoinaCYWOQBRBF2140-19-40 10:00:34 Test Item Value Reference Range Interpretation Comments eGFR (test code = eGFR) 61 [facility] CenterAcnecjnARRLBNLUT0694-47-07 10:00:34 Test Item Value Reference Range Interpretation Comments Calcium Lvl (test code = Calcium Lvl) 9.1 8.5-10.5 N [facility] CenterFasmcvyZBLOOGDVZ9841-04-60 10:00:34 Test Item Value Reference Range Interpretation Comments Sodium Lvl (test code = Sodium Lvl) 147 135-145 H [facility] CenterNmvriojEUCMRWUOB5824-98-35 10:00:34 Test Item Value Reference Range Interpretation Comments Potassium Lvl (test code = Potassium 3.7 3.5-5.1 N Lvl) [facility] CenterTqeppuvEACCMDWQF6706-20-11 10:00:34 Test Item Value Reference Range Interpretation Comments Chloride Lvl (test code = Chloride Lvl) 113 95-109 H [facility] CenterCnllmfdHXZJTXIBP9090-19-18 10:00:34 Test Item Value Reference Range Interpretation Comments CO2 (test code = CO2) 24 24-32 N [facility] CenterQwffwpxYVXZWDLRB5680-13-04 10:00:34 Test Item Value Reference Range Interpretation Comments Glucose Lvl (test code = Glucose Lvl) 136 70-99 H [facility] CenterArutfujGCPPJZLZG6852-70-45 10:00:34 Test Item Value Reference Range Interpretation Comments BUN (test code = BUN) 25 7-22 H [facility] CenterApecdxdENWXCQANP7851-31-97 10:00:34 Test Item Value Reference Range Interpretation Comments Creatinine Lvl (test code = Creatinine 1.0 0.5-1.4 N Lvl) [facility] CenterZvuliznLAWXAHSJT0869-85-60 10:00:34 Test Item Value Reference Range Interpretation Comments AGAP (test code = AGAP) 13.7 10.0-20.0 N [facility] CenterWkjozleSIPYSMIYC6188-86-82 10:00:34 Test Item Value Reference Range Interpretation Comments Ca Norm WB (test code = Ca Norm WB) 1.22 1.05-1.25 N [facility] CenterHbfqecyLAUXBUAFU3760-38-45 10:00:34 Test Item Value Reference Range Interpretation Comments Ca Ion WB (test code = Ca Ion WB) 1.20 1.05-1.25 N [facility] CenterOcihuktRJJGYCZWC9510-00-76 10:00:34 Test Item Value Reference Range Interpretation Comments eGFR (test code = eGFR) 61 [facility] CenterZctuqbyHRJSIMVZY9307-56-07 10:00:34 Test Item Value Reference Range Interpretation Comments Calcium Lvl (test code = Calcium Lvl) 9.1 8.5-10.5 N [facility] CenterFglzpjsMMXJXEUYK1311-34-59 10:00:34 Test Item Value Reference Range Interpretation Comments Sodium Lvl (test code = Sodium Lvl) 147 135-145 H [facility] CenterDgscnjhBFEQPOGXJ9039-47-27 10:00:34 Test Item Value Reference Range Interpretation Comments Potassium Lvl (test code = Potassium 3.7 3.5-5.1 N Lvl) [facility] CenterBhbjhzeSVATMXIQD8064-14-11 10:00:34 Test Item Value Reference Range Interpretation Comments Chloride Lvl (test code = Chloride Lvl) 113 95-109 H [facility] CenterRsysqfcTCWJYTKNT1503-29-93 10:00:34 Test Item Value Reference Range Interpretation Comments CO2 (test code = CO2) 24 24-32 N [facility] CenterEykxtokBJVNEGGJU3818-24-69 10:00:34 Test Item Value Reference Range Interpretation Comments Glucose Lvl (test code = Glucose Lvl) 136 70-99 H [facility] CenterGsltpjzOEIZYBGVM8530-07-83 10:00:34 Test Item Value Reference Range Interpretation Comments BUN (test code = BUN) 25 7-22 H [facility] CenterZjacdohHOKKDJMFM4886-87-22 10:00:34 Test Item Value Reference Range Interpretation Comments Creatinine Lvl (test code = Creatinine 1.0 0.5-1.4 N Lvl) [facility] CenterVowiulcNVDFWORAH6709-39-23 10:00:34 Test Item Value Reference Range Interpretation Comments AGAP (test code = AGAP) 13.7 10.0-20.0 N [facility] CenterUbxlpnkEWZFAHVFC6164-13-82 10:00:34 Test Item Value Reference Range Interpretation Comments Ca Norm WB (test code = Ca Norm WB) 1.22 1.05-1.25 N [facility] CenterWktcierFKPVPTWVQ0788-36-82 10:00:34 Test Item Value Reference Range Interpretation Comments Ca Ion WB (test code = Ca Ion WB) 1.20 1.05-1.25 N [facility] CenterUnceyekUOYCWAPPR1937-43-38 10:00:34 Test Item Value Reference Range Interpretation Comments eGFR (test code = eGFR) 61 [facility] CenterFeghjqoENYTBXVIR9357-12-46 10:00:34 Test Item Value Reference Range Interpretation Comments Calcium Lvl (test code = Calcium Lvl) 9.1 8.5-10.5 N [facility] CenterDfwbjgcXICGXTRTL1337-65-52 10:00:34 Test Item Value Reference Range Interpretation Comments Sodium Lvl (test code = Sodium Lvl) 147 135-145 H [facility] CenterDugepiqRSVLJISWJ7796-80-81 10:00:34 Test Item Value Reference Range Interpretation Comments Potassium Lvl (test code = Potassium 3.7 3.5-5.1 N Lvl) [facility] CenterZturbhyOWVZTMBLJ6379-58-29 10:00:34 Test Item Value Reference Range Interpretation Comments Chloride Lvl (test code = Chloride Lvl) 113 95-109 H [facility] CenterAybaglzUQUSEZYDW1562-88-56 10:00:34 Test Item Value Reference Range Interpretation Comments CO2 (test code = CO2) 24 24-32 N [facility] CenterFcoihmfKBNRXSAVU8082-00-12 10:00:34 Test Item Value Reference Range Interpretation Comments Glucose Lvl (test code = Glucose Lvl) 136 70-99 H [facility] CenterXjyjqsiSHUHERZVR7627-07-82 10:00:34 Test Item Value Reference Range Interpretation Comments BUN (test code = BUN) 25 7-22 H [facility] CenterNchkqdrXVMEVJUTD7130-04-42 10:00:34 Test Item Value Reference Range Interpretation Comments Creatinine Lvl (test code = Creatinine 1.0 0.5-1.4 N Lvl) [facility] CenterMsjnklvEBKLRIIJI1208-46-13 10:00:34 Test Item Value Reference Range Interpretation Comments AGAP (test code = AGAP) 13.7 10.0-20.0 N [facility] CenterSnzctesNHXXXEQRG1543-69-11 10:00:34 Test Item Value Reference Range Interpretation Comments Ca Norm WB (test code = Ca Norm WB) 1.22 1.05-1.25 N [facility] CenterFegfwdwLPGDVKCEN4267-75-80 10:00:34 Test Item Value Reference Range Interpretation Comments Ca Ion WB (test code = Ca Ion WB) 1.20 1.05-1.25 N [facility]AcbkffoAVPGSWCNZW3855-31-49 10:00:00 Test Item Value Reference Range Interpretation Comments Atypical Lymphs (test code = Atypical 0.0 N Lymphs) [facility] HospitalFrtudlvTKMELCEGQB2207-14-29 10:00:00 Test Item Value Reference Range Interpretation Comments NRBC (test code = NRBC) 1 [facility] HospitalLcucoyzYDWRMUJEZG2560-05-80 10:00:00 Test Item Value Reference Range Interpretation Comments Myelocytes (test code = Myelocytes) 2.0 H [facility] HospitalZqdvdwuWLGJXILEKI9855-37-80 10:00:00 Test Item Value Reference Range Interpretation Comments Lymphocytes (test code = Lymphocytes) 13.0 20.0-40.0 L [facility] HospitalDxscnqvEWFQRLLJAA6264-08-89 10:00:00 Test Item Value Reference Range Interpretation Comments Monocytes (test code = Monocytes) 0.0 2.0-12.0 L [facility] HospitalIgkfbghZHPCBLMTUE5522-97-48 10:00:00 Test Item Value Reference Range Interpretation Comments Elliptocyte (test code = Slight A Elliptocyte) *ABN*(02/26/2013 05:00:00) [facility] HospitalEzxpyxnMUFRQDJSMF5325-10-95 10:00:00 Test Item Value Reference Range Interpretation Comments Large Plt (test code = Slight *ABN*(02/26/2013 A Large Plt) 05:00:00) [facility] HospitalGwypuljUTJPDHTJCB7670-72-32 10:00:00 Test Item Value Reference Range Interpretation Comments Tot Cell Ct (test code = Tot Cell Ct) 100 1 [facility] HospitalFkxwcuwQIOVGCTRLY0048-82-53 10:00:00 Test Item Value Reference Range Interpretation Comments Anisocyte (test code = 1+ *ABN*(02/26/2013 A Anisocyte) 05:00:00) [facility] HospitalJanebjeBRYARPKKJG5580-98-49 10:00:00 Test Item Value Reference Range Interpretation Comments Polychrom (test code = Slight (02/26/2013 N Polychrom) 05:00:00) [facility] HospitalYvatuvvIQIWNCRPMG3844-80-64 10:00:00 Test Item Value Reference Range Interpretation Comments Segs-Bands # (test code = Segs-Bands #) 10.5 1.5-8.1 H [facility] HospitalQiyinzzXVXFLOYXHX4916-26-68 10:00:00 Test Item Value Reference Range Interpretation Comments Lymphocytes # (test code = Lymphocytes 1.6 1.0-5.5 N #) [facility] HospitalNpqtbxwOEKVVIEEXF7092-45-90 10:00:00 Test Item Value Reference Range Interpretation Comments Monocytes # (test code 0.0 See_Comment N [Aut omated message] The = Monocytes #) system which generated this result tra nsmitted reference range : <=0.8. The reference r katie was not used to int erpret this result as normal/abnormal . [facility] HospitalKxouoieRYWJRFYCKH0806-01-28 10:00:00 Test Item Value Reference Range Interpretation Comments Bands (test code = 7.0 See_Comment N [Automat ed message] The Bands) system which ge nerated this result transmit matteo reference range : <=11.0. The reference r katie was not used to interpr et this result as miesha l/abnormal. [facility] HospitalRosmorvCHIYESQMLY1325-63-00 10:00:00 Test Item Value Reference Range Interpretation Comments Segs (test code = Segs) 78.0 45.0-75.0 H [facility] HospitalRgbrxuoUGNPINIQLK7638-02-41 10:00:00 Test Item Value Reference Range Interpretation Comments RDW (test code = RDW) 17.6 11.5-14.5 H [facility] HospitalYreazexMJQMEKBECT4879-63-65 10:00:00 Test Item Value Reference Range Interpretation Comments MCHC (test code = MCHC) 35.0 32.0-36.0 N [facility] HospitalDmfwuzpPZXWQKSIYF2622-91-24 10:00:00 Test Item Value Reference Range Interpretation Comments MCH (test code = MCH) 32.2 pg 27.0-31.0 H [facility] HospitalExqnlekWKIOQZAQJI4047-25-63 10:00:00 Test Item Value Reference Range Interpretation Comments Hct (test code = Hct) 27.4 36.0-48.0 L [facility] HospitalNwyeqfzKVJQJXIPBD7452-88-17 10:00:00 Test Item Value Reference Range Interpretation Comments Hgb (test code = Hgb) 9.6 12.0-16.0 L [facility] HospitalAzjweftQCPHQSLMIL6346-57-86 10:00:00 Test Item Value Reference Range Interpretation Comments MCV (test code = MCV) 91.8 81.0-99.0 N [facility] HospitalEgfnixbJLJDDQRLYY3657-92-25 10:00:00 Test Item Value Reference Range Interpretation Comments WBC (test code = WBC) 12.4 3.7-10.4 H [facility] HospitalDfsmfmlXNVQHFWMNB5406-18-91 10:00:00 Test Item Value Reference Range Interpretation Comments RBC (test code = RBC) 2.98 4.20-5.40 L [facility] HospitalOprjioaJYGJEBQCHY1906-54-61 10:00:00 Test Item Value Reference Range Interpretation Comments MPV (test code = MPV) 7.1 7.4-10.4 L [facility] HospitalFsjmsnqMRKXYFDTJD9993-88-51 10:00:00 Test Item Value Reference Range Interpretation Comments Platelet (test code = Platelet) 221 133-450 N [facility] HospitalNrnlwuyDMLJITRGJX0725-79-57 10:00:00 Test Item Value Reference Range Interpretation Comments Atypical Lymphs (test code = Atypical 0.0 N Lymphs) [facility] HospitalXbsmhaqWKASCEBNRW1651-11-58 10:00:00 Test Item Value Reference Range Interpretation Comments NRBC (test code = NRBC) 1 [facility] HospitalFeiqdluRGEWBKIWIW6517-69-70 10:00:00 Test Item Value Reference Range Interpretation Comments Myelocytes (test code = Myelocytes) 2.0 H [facility] HospitalEjemmuxBGTNOSJNLT8113-23-28 10:00:00 Test Item Value Reference Range Interpretation Comments Lymphocytes (test code = Lymphocytes) 13.0 20.0-40.0 L [facility] HospitalJhllswoUSMYOYFIGK0711-12-44 10:00:00 Test Item Value Reference Range Interpretation Comments Monocytes (test code = Monocytes) 0.0 2.0-12.0 L [facility] HospitalIixxqvyRNOHSNGOQJ3992-72-67 10:00:00 Test Item Value Reference Range Interpretation Comments Elliptocyte (test code = Slight A Elliptocyte) *ABN*(02/26/2013 05:00:00) [facility] HospitalKqmpbihFFIGUMHHNG2256-75-58 10:00:00 Test Item Value Reference Range Interpretation Comments Large Plt (test code = Slight *ABN*(02/26/2013 A Large Plt) 05:00:00) [facility] HospitalDkbxxasFEJGOEXXIX0792-56-13 10:00:00 Test Item Value Reference Range Interpretation Comments Tot Cell Ct (test code = Tot Cell Ct) 100 1 [facility] HospitalDxfqhbhOBLKEKBEQU0026-13-62 10:00:00 Test Item Value Reference Range Interpretation Comments Anisocyte (test code = 1+ *ABN*(02/26/2013 A Anisocyte) 05:00:00) [facility] HospitalYwqmdlnWQMIRATRBD3298-44-84 10:00:00 Test Item Value Reference Range Interpretation Comments Polychrom (test code = Slight (02/26/2013 N Polychrom) 05:00:00) [facility] HospitalAotykmpDEDMWVTBIL0915-04-33 10:00:00 Test Item Value Reference Range Interpretation Comments Segs-Bands # (test code = Segs-Bands #) 10.5 1.5-8.1 H [facility] HospitalHfctnrjHDMVCJOLNW9131-62-79 10:00:00 Test Item Value Reference Range Interpretation Comments Lymphocytes # (test code = Lymphocytes 1.6 1.0-5.5 N #) [facility] HospitalLwpvsolSVHFAXAKHA1132-47-55 10:00:00 Test Item Value Reference Range Interpretation Comments Monocytes # (test code 0.0 See_Comment N [Aut omated message] The = Monocytes #) system which generated this result tra nsmitted reference range : <=0.8. The reference r katie was not used to int erpret this result as normal/abnormal . [facility] HospitalMjwpicoTVLRLRMSJM9274-34-37 10:00:00 Test Item Value Reference Range Interpretation Comments Bands (test code = 7.0 See_Comment N [Automat ed message] The Bands) system which ge nerated this result transmit matteo reference range : <=11.0. The reference r katie was not used to interpr et this result as miesha l/abnormal. [facility] HospitalWwzqqisBKRTLXPYOY5290-14-67 10:00:00 Test Item Value Reference Range Interpretation Comments Segs (test code = Segs) 78.0 45.0-75.0 H [facility] HospitalModwvirXIQZXVSINP5891-95-19 10:00:00 Test Item Value Reference Range Interpretation Comments RDW (test code = RDW) 17.6 11.5-14.5 H [facility] HospitalUlphwdxVPBPNLQDFN4503-74-54 10:00:00 Test Item Value Reference Range Interpretation Comments MCHC (test code = MCHC) 35.0 32.0-36.0 N [facility] HospitalKoowcgkZTUJXDIZJW8161-91-82 10:00:00 Test Item Value Reference Range Interpretation Comments MCH (test code = MCH) 32.2 pg 27.0-31.0 H [facility] HospitalCqmlekdQAXTVFYXRI4741-51-40 10:00:00 Test Item Value Reference Range Interpretation Comments Hct (test code = Hct) 27.4 36.0-48.0 L [facility] HospitalBxnswnqQGPQZZYOBS3464-88-98 10:00:00 Test Item Value Reference Range Interpretation Comments Hgb (test code = Hgb) 9.6 12.0-16.0 L [facility] HospitalXdihsiqQISHINPHPM4411-34-60 10:00:00 Test Item Value Reference Range Interpretation Comments MCV (test code = MCV) 91.8 81.0-99.0 N [facility] HospitalZaatpzsSRUSIPHQAI2266-66-43 10:00:00 Test Item Value Reference Range Interpretation Comments WBC (test code = WBC) 12.4 3.7-10.4 H [facility] HospitalGzsubknMWAVPDANGP7189-59-69 10:00:00 Test Item Value Reference Range Interpretation Comments RBC (test code = RBC) 2.98 4.20-5.40 L [facility] HospitalSojsmchZFHNUEBXVL4317-47-97 10:00:00 Test Item Value Reference Range Interpretation Comments MPV (test code = MPV) 7.1 7.4-10.4 L [facility] HospitalZbxtfasXXOFFGNCLB5640-19-72 10:00:00 Test Item Value Reference Range Interpretation Comments Platelet (test code = Platelet) 221 133-450 N [facility] HospitalSzndfiaAKQONVVNCV8584-86-89 10:00:00 Test Item Value Reference Range Interpretation Comments Atypical Lymphs (test code = Atypical 0.0 N Lymphs) [facility] HospitalDxaxlhvCXIUAMSSPH7206-04-96 10:00:00 Test Item Value Reference Range Interpretation Comments NRBC (test code = NRBC) 1 [facility] HospitalOzooashTFZETXIQRS7475-02-38 10:00:00 Test Item Value Reference Range Interpretation Comments Myelocytes (test code = Myelocytes) 2.0 H [facility] HospitalRgedzboHXTRAKGMMP4316-42-57 10:00:00 Test Item Value Reference Range Interpretation Comments Lymphocytes (test code = Lymphocytes) 13.0 20.0-40.0 L [facility] HospitalQrdparcSMMPRFXBQG1519-70-12 10:00:00 Test Item Value Reference Range Interpretation Comments Monocytes (test code = Monocytes) 0.0 2.0-12.0 L [facility] HospitalKbmrcfaTOIVOSLJXL9280-23-47 10:00:00 Test Item Value Reference Range Interpretation Comments Elliptocyte (test code = Slight A Elliptocyte) *ABN*(02/26/2013 05:00:00) [facility] HospitalExjbzcnUFNSUOIFIP9626-20-22 10:00:00 Test Item Value Reference Range Interpretation Comments Large Plt (test code = Slight *ABN*(02/26/2013 A Large Plt) 05:00:00) [facility] HospitalPokunqeUAYGVKWTNU1140-72-04 10:00:00 Test Item Value Reference Range Interpretation Comments Tot Cell Ct (test code = Tot Cell Ct) 100 1 [facility] HospitalPgmkrwaTSXVCRVUXX4665-82-02 10:00:00 Test Item Value Reference Range Interpretation Comments Anisocyte (test code = 1+ *ABN*(02/26/2013 A Anisocyte) 05:00:00) [facility] HospitalYrpraseZGPBVZIGRG0271-26-53 10:00:00 Test Item Value Reference Range Interpretation Comments Polychrom (test code = Slight (02/26/2013 N Polychrom) 05:00:00) [facility] HospitalLtvcncxEIXTVMGUXK0097-43-92 10:00:00 Test Item Value Reference Range Interpretation Comments Segs-Bands # (test code = Segs-Bands #) 10.5 1.5-8.1 H [facility] HospitalZjknlenYUVMFGFBNA4914-44-51 10:00:00 Test Item Value Reference Range Interpretation Comments Lymphocytes # (test code = Lymphocytes 1.6 1.0-5.5 N #) [facility]HdpswisYXNKLMPWOS9543-70-97 10:00:00 Test Item Value Reference Range Interpretation Comments Monocytes # (test code 0.0 See_Comment N [Aut omated message] The = Monocytes #) system which generated this result tra nsmitted reference range : <=0.8. The reference r katie was not used to int erpret this result as normal/abnormal . [facility] HospitalAednzvtOWQIXYKWCW9578-35-37 10:00:00 Test Item Value Reference Range Interpretation Comments Bands (test code = 7.0 See_Comment N [Automat ed message] The Bands) system which ge nerated this result transmit matteo reference range : <=11.0. The reference r katie was not used to interpr et this result as miesha l/abnormal. [facility] HospitalVfmtlkqOJHAOPDHLW5207-61-96 10:00:00 Test Item Value Reference Range Interpretation Comments Segs (test code = Segs) 78.0 45.0-75.0 H [facility] HospitalWkllkpuEZIOTYWVGV7281-49-76 10:00:00 Test Item Value Reference Range Interpretation Comments RDW (test code = RDW) 17.6 11.5-14.5 H [facility] HospitalDygnggsHFVNDDNMNN0382-75-54 10:00:00 Test Item Value Reference Range Interpretation Comments MCHC (test code = MCHC) 35.0 32.0-36.0 N [facility] HospitalOzrftjaICFLWUQCLQ1538-19-53 10:00:00 Test Item Value Reference Range Interpretation Comments MCH (test code = MCH) 32.2 pg 27.0-31.0 H [facility] HospitalDcfhxfgHQDUJMMOXM4344-32-43 10:00:00 Test Item Value Reference Range Interpretation Comments Hct (test code = Hct) 27.4 36.0-48.0 L [facility] HospitalGsoqxkeLAWXXYWNZK2708-56-82 10:00:00 Test Item Value Reference Range Interpretation Comments Hgb (test code = Hgb) 9.6 12.0-16.0 L [facility] HospitalUkppodqAWVLMNJFTZ0847-84-27 10:00:00 Test Item Value Reference Range Interpretation Comments MCV (test code = MCV) 91.8 81.0-99.0 N [facility] HospitalLidvhrsPPLSBSTLLP6585-11-01 10:00:00 Test Item Value Reference Range Interpretation Comments WBC (test code = WBC) 12.4 3.7-10.4 H [facility] HospitalRwbsrucDOSBGJFAPV7848-07-09 10:00:00 Test Item Value Reference Range Interpretation Comments RBC (test code = RBC) 2.98 4.20-5.40 L [facility] HospitalRowuzimWBGACOKHJM0319-48-92 10:00:00 Test Item Value Reference Range Interpretation Comments MPV (test code = MPV) 7.1 7.4-10.4 L [facility] HospitalJsuaszcMXRINBZFKB5967-09-34 10:00:00 Test Item Value Reference Range Interpretation Comments Platelet (test code = Platelet) 221 133-450 N [facility] HospitalLgeaiokVKTXVLBTHO7649-81-58 10:00:00 Test Item Value Reference Range Interpretation Comments Atypical Lymphs (test code = Atypical 0.0 N Lymphs) [facility] HospitalPlksdzhYNAKBTFVPX5635-07-63 10:00:00 Test Item Value Reference Range Interpretation Comments NRBC (test code = NRBC) 1 [facility] HospitalZmcxkzoVSDEXQIUSJ7565-21-57 10:00:00 Test Item Value Reference Range Interpretation Comments Myelocytes (test code = Myelocytes) 2.0 H [facility] HospitalWirpjmcVFEHKYUBIX5050-36-39 10:00:00 Test Item Value Reference Range Interpretation Comments Lymphocytes (test code = Lymphocytes) 13.0 20.0-40.0 L [facility] HospitalLlwaozcPDAURNXUFR2770-04-40 10:00:00 Test Item Value Reference Range Interpretation Comments Monocytes (test code = Monocytes) 0.0 2.0-12.0 L [facility] HospitalTbalodxTJICEDQMUM9822-07-37 10:00:00 Test Item Value Reference Range Interpretation Comments Elliptocyte (test code = Slight A Elliptocyte) *ABN*(02/26/2013 05:00:00) [facility] HospitalHyirovqMKTXUCKVIS3202-03-95 10:00:00 Test Item Value Reference Range Interpretation Comments Large Plt (test code = Slight *ABN*(02/26/2013 A Large Plt) 05:00:00) [facility] HospitalScydeiwYWHYLQQQCL0139-91-57 10:00:00 Test Item Value Reference Range Interpretation Comments Tot Cell Ct (test code = Tot Cell Ct) 100 1 [facility] HospitalUnfrzzjNCHCUOSVSA8730-75-68 10:00:00 Test Item Value Reference Range Interpretation Comments Anisocyte (test code = 1+ *ABN*(02/26/2013 A Anisocyte) 05:00:00) [facility] HospitalHnpfgnaHHODASQRTN6511-51-50 10:00:00 Test Item Value Reference Range Interpretation Comments Polychrom (test code = Slight (02/26/2013 N Polychrom) 05:00:00) [facility] HospitalMqcferyXPDDFIVNBH5502-33-06 10:00:00 Test Item Value Reference Range Interpretation Comments Segs-Bands # (test code = Segs-Bands #) 10.5 1.5-8.1 H [facility] HospitalTdvfataKVRVZJIDSU3241-38-77 10:00:00 Test Item Value Reference Range Interpretation Comments Lymphocytes # (test code = Lymphocytes 1.6 1.0-5.5 N #) [facility] HospitalLdgkyuwPKBGYSELWJ3859-13-38 10:00:00 Test Item Value Reference Range Interpretation Comments Monocytes # (test code 0.0 See_Comment N [Aut omated message] The = Monocytes #) system which generated this result tra nsmitted reference range : <=0.8. The reference r katie was not used to int erpret this result as normal/abnormal . [facility] HospitalEyvnjirZJBVSVMCLP5517-14-30 10:00:00 Test Item Value Reference Range Interpretation Comments Bands (test code = 7.0 See_Comment N [Automat ed message] The Bands) system which ge nerated this result transmit matteo reference range : <=11.0. The reference r katie was not used to interpr et this result as miesha l/abnormal. [facility] HospitalQpysexaYMTBMZJJLR3764-73-02 10:00:00 Test Item Value Reference Range Interpretation Comments Segs (test code = Segs) 78.0 45.0-75.0 H [facility] HospitalBybxtsuKQFYOWPVII4439-55-65 10:00:00 Test Item Value Reference Range Interpretation Comments RDW (test code = RDW) 17.6 11.5-14.5 H [facility] HospitalKtcibktCTUXBPETJW1424-36-74 10:00:00 Test Item Value Reference Range Interpretation Comments MCHC (test code = MCHC) 35.0 32.0-36.0 N [facility] HospitalUxmywqrVCQABQYITX8279-58-97 10:00:00 Test Item Value Reference Range Interpretation Comments MCH (test code = MCH) 32.2 pg 27.0-31.0 H [facility] HospitalOnrmggxYHZKJYTFME1490-67-39 10:00:00 Test Item Value Reference Range Interpretation Comments Hct (test code = Hct) 27.4 36.0-48.0 L [facility] HospitalTnzfrbdJSRMDQFCRO1515-83-48 10:00:00 Test Item Value Reference Range Interpretation Comments Hgb (test code = Hgb) 9.6 12.0-16.0 L [facility] HospitalHfyufumBELMOJCHTC2911-49-28 10:00:00 Test Item Value Reference Range Interpretation Comments MCV (test code = MCV) 91.8 81.0-99.0 N [facility] HospitalWuxxqknNZGPMSNIBN6748-37-28 10:00:00 Test Item Value Reference Range Interpretation Comments WBC (test code = WBC) 12.4 3.7-10.4 H [facility] HospitalOjbyafaHYUMYXNZIW1925-76-39 10:00:00 Test Item Value Reference Range Interpretation Comments RBC (test code = RBC) 2.98 4.20-5.40 L [facility] HospitalZiiulhyLVHYCNLWVU9593-40-28 10:00:00 Test Item Value Reference Range Interpretation Comments MPV (test code = MPV) 7.1 7.4-10.4 L [facility] HospitalGanffznKUHCEITZBL8836-01-88 10:00:00 Test Item Value Reference Range Interpretation Comments Platelet (test code = Platelet) 221 133-450 N [facility] HospitalWnkzpdwVKVPIKTYHX3407-90-10 10:00:00 Test Item Value Reference Range Interpretation Comments Atypical Lymphs (test code = Atypical 0.0 N Lymphs) [facility] HospitalRbogzwoEGYQEFPTVR2850-80-21 10:00:00 Test Item Value Reference Range Interpretation Comments NRBC (test code = NRBC) 1 [facility] HospitalKjbhbubAQJIULUIQR4280-97-87 10:00:00 Test Item Value Reference Range Interpretation Comments Myelocytes (test code = Myelocytes) 2.0 H [facility] HospitalYetrgtuFQQGMNZBZQ5813-04-31 10:00:00 Test Item Value Reference Range Interpretation Comments Lymphocytes (test code = Lymphocytes) 13.0 20.0-40.0 L [facility] HospitalSvrmwflNYVPLUXCWZ4207-85-74 10:00:00 Test Item Value Reference Range Interpretation Comments Monocytes (test code = Monocytes) 0.0 2.0-12.0 L [facility] HospitalAorjqgiYCSQVJZYDG0789-06-15 10:00:00 Test Item Value Reference Range Interpretation Comments Elliptocyte (test code = Slight A Elliptocyte) *ABN*(02/26/2013 05:00:00) [facility] HospitalSrjzzjuFWRKNTHAPP5017-23-03 10:00:00 Test Item Value Reference Range Interpretation Comments Large Plt (test code = Slight *ABN*(02/26/2013 A Large Plt) 05:00:00) [facility] HospitalAjyparoEJWFMBQVAM1688-41-25 10:00:00 Test Item Value Reference Range Interpretation Comments Tot Cell Ct (test code = Tot Cell Ct) 100 1 [facility] HospitalVtnzbbcUHGCLTBBCW6241-79-01 10:00:00 Test Item Value Reference Range Interpretation Comments Anisocyte (test code = 1+ *ABN*(02/26/2013 A Anisocyte) 05:00:00) [facility] HospitalYggkkpbTKBSYYKADA2521-30-90 10:00:00 Test Item Value Reference Range Interpretation Comments Polychrom (test code = Slight (02/26/2013 N Polychrom) 05:00:00) [facility] HospitalQepddefLFNICJFZOG2364-85-57 10:00:00 Test Item Value Reference Range Interpretation Comments Segs-Bands # (test code = Segs-Bands #) 10.5 1.5-8.1 H [facility] HospitalMlxnjzhBMODDUWRBS1576-67-41 10:00:00 Test Item Value Reference Range Interpretation Comments Lymphocytes # (test code = Lymphocytes 1.6 1.0-5.5 N #) [facility] HospitalLofvsuqTHOPLIEFTU8037-40-03 10:00:00 Test Item Value Reference Range Interpretation Comments Monocytes # (test code 0.0 See_Comment N [Aut omated message] The = Monocytes #) system which generated this result tra nsmitted reference range : <=0.8. The reference r katie was not used to int erpret this result as normal/abnormal . [facility] HospitalPgjqcyiLTWDLEXGRW7873-19-90 10:00:00 Test Item Value Reference Range Interpretation Comments Bands (test code = 7.0 See_Comment N [Automat ed message] The Bands) system which ge nerated this result transmit matteo reference range : <=11.0. The reference r katie was not used to interpr et this result as miesha l/abnormal. [facility] HospitalByarhsrOUXMYXIFDJ0451-22-59 10:00:00 Test Item Value Reference Range Interpretation Comments Segs (test code = Segs) 78.0 45.0-75.0 H [facility] HospitalEhsecumRHULTQMUNA5208-63-80 10:00:00 Test Item Value Reference Range Interpretation Comments RDW (test code = RDW) 17.6 11.5-14.5 H [facility] HospitalGgrhfrcRPBODBCHSI8809-91-34 10:00:00 Test Item Value Reference Range Interpretation Comments MCHC (test code = MCHC) 35.0 32.0-36.0 N [facility] HospitalSxgumkeTNVRMRUKVC9807-39-69 10:00:00 Test Item Value Reference Range Interpretation Comments MCH (test code = MCH) 32.2 pg 27.0-31.0 H [facility] HospitalUenturvNFSWQCGRGW4705-18-59 10:00:00 Test Item Value Reference Range Interpretation Comments Hct (test code = Hct) 27.4 36.0-48.0 L [facility] HospitalNzvrbtzQWTMQHMGMW5043-84-49 10:00:00 Test Item Value Reference Range Interpretation Comments Hgb (test code = Hgb) 9.6 12.0-16.0 L [facility] HospitalHdqplhiHHFMUQDSGA2307-60-66 10:00:00 Test Item Value Reference Range Interpretation Comments MCV (test code = MCV) 91.8 81.0-99.0 N [facility] HospitalBktpplwFEUFJABFZE9426-89-34 10:00:00 Test Item Value Reference Range Interpretation Comments WBC (test code = WBC) 12.4 3.7-10.4 H [facility] HospitalJnrrbcnQNHENLMRXS0722-53-58 10:00:00 Test Item Value Reference Range Interpretation Comments RBC (test code = RBC) 2.98 4.20-5.40 L [facility] HospitalPgegkyeMYZBVVCAAE9198-92-63 10:00:00 Test Item Value Reference Range Interpretation Comments MPV (test code = MPV) 7.1 7.4-10.4 L [facility] HospitalSctsahrCXLWPZEMIG5214-84-79 10:00:00 Test Item Value Reference Range Interpretation Comments Platelet (test code = Platelet) 221 133-450 N [facility] HospitalBmsmlceSNUMJPZTFT4021-44-55 10:00:00 Test Item Value Reference Range Interpretation Comments Atypical Lymphs (test code = Atypical 0.0 N Lymphs) [facility] HospitalQfxrkkpJJFZXAXMVG1796-03-72 10:00:00 Test Item Value Reference Range Interpretation Comments NRBC (test code = NRBC) 1 [facility] HospitalXztpqvfPCSXZGXXON8733-31-30 10:00:00 Test Item Value Reference Range Interpretation Comments Myelocytes (test code = Myelocytes) 2.0 H [facility] HospitalWnadmujPIGZJEJKKG2625-79-93 10:00:00 Test Item Value Reference Range Interpretation Comments Lymphocytes (test code = Lymphocytes) 13.0 20.0-40.0 L [facility] HospitalDlqikuxRUOHGFHLBD8505-58-20 10:00:00 Test Item Value Reference Range Interpretation Comments Monocytes (test code = Monocytes) 0.0 2.0-12.0 L [facility] HospitalEcjulnpIMBLMPYHNN5216-99-71 10:00:00 Test Item Value Reference Range Interpretation Comments Elliptocyte (test code = Slight A Elliptocyte) *ABN*(02/26/2013 05:00:00) [facility] HospitalUogbyrwGQLYMNUWMK0642-79-88 10:00:00 Test Item Value Reference Range Interpretation Comments Large Plt (test code = Slight *ABN*(02/26/2013 A Large Plt) 05:00:00) [facility] HospitalUvfhvksQIUWOIVXCQ1039-79-14 10:00:00 Test Item Value Reference Range Interpretation Comments Tot Cell Ct (test code = Tot Cell Ct) 100 1 [facility] HospitalFtpvsyiQCSIOAUQAR8541-85-86 10:00:00 Test Item Value Reference Range Interpretation Comments Anisocyte (test code = 1+ *ABN*(02/26/2013 A Anisocyte) 05:00:00) [facility] HospitalJusslwzTGUWRTNYBD4587-25-38 10:00:00 Test Item Value Reference Range Interpretation Comments Polychrom (test code = Slight (02/26/2013 N Polychrom) 05:00:00) [facility] HospitalOfufnelMONMMZZGBZ4702-20-66 10:00:00 Test Item Value Reference Range Interpretation Comments Segs-Bands # (test code = Segs-Bands #) 10.5 1.5-8.1 H [facility] HospitalUlcppenIADZTXXRWE8694-52-34 10:00:00 Test Item Value Reference Range Interpretation Comments Lymphocytes # (test code = Lymphocytes 1.6 1.0-5.5 N #) [facility] HospitalYhtmdtnMKTBOCAPCV5348-82-87 10:00:00 Test Item Value Reference Range Interpretation Comments Monocytes # (test code 0.0 See_Comment N [Aut omated message] The = Monocytes #) system which generated this result tra nsmitted reference range : <=0.8. The reference r katie was not used to int erpret this result as normal/abnormal . [facility] HospitalQzcwdwoSLPBDUJQCQ0822-11-72 10:00:00 Test Item Value Reference Range Interpretation Comments Bands (test code = 7.0 See_Comment N [Automat ed message] The Bands) system which ge nerated this result transmit matteo reference range : <=11.0. The reference r katie was not used to interpr et this result as miesha l/abnormal. [facility] HospitalKmirdjiNBQUAWDTCS6408-41-99 10:00:00 Test Item Value Reference Range Interpretation Comments Segs (test code = Segs) 78.0 45.0-75.0 H [facility] HospitalBfmjwabLAQPTJPTOC4396-71-55 10:00:00 Test Item Value Reference Range Interpretation Comments RDW (test code = RDW) 17.6 11.5-14.5 H [facility] HospitalCadqtrnUJMDPJRNHT1932-05-17 10:00:00 Test Item Value Reference Range Interpretation Comments MCHC (test code = MCHC) 35.0 32.0-36.0 N [facility] HospitalHfcjhwgNBFCWSAILX1444-50-73 10:00:00 Test Item Value Reference Range Interpretation Comments MCH (test code = MCH) 32.2 pg 27.0-31.0 H [facility] HospitalWzqpwrkSKEXWCHWSM7569-20-91 10:00:00 Test Item Value Reference Range Interpretation Comments Hct (test code = Hct) 27.4 36.0-48.0 L [facility] HospitalIafgocwTYOUYAULFN3671-05-78 10:00:00 Test Item Value Reference Range Interpretation Comments Hgb (test code = Hgb) 9.6 12.0-16.0 L [facility] HospitalGsrnxztCSNKTAHEKV0807-92-34 10:00:00 Test Item Value Reference Range Interpretation Comments MCV (test code = MCV) 91.8 81.0-99.0 N [facility] HospitalXhzynpkMUCGTPKVMR3861-53-26 10:00:00 Test Item Value Reference Range Interpretation Comments WBC (test code = WBC) 12.4 3.7-10.4 H [facility] HospitalHsdmuydJUHZGNWSXZ2306-00-52 10:00:00 Test Item Value Reference Range Interpretation Comments RBC (test code = RBC) 2.98 4.20-5.40 L [facility] HospitalPctspoxRTRSPRPUAY8513-64-28 10:00:00 Test Item Value Reference Range Interpretation Comments MPV (test code = MPV) 7.1 7.4-10.4 L [facility] HospitalKvszuuzMVOAWGCWTT0249-31-91 10:00:00 Test Item Value Reference Range Interpretation Comments Platelet (test code = Platelet) 221 133-450 N [facility]BzilpclVKIPIKOMV0979-17-89 20:11:00 Test Item Value Reference Range Interpretation Comments Vanco Tr TND (test code = Vanco Tr TND) 1:00 [facility] CenterEfninlkDRBXSPMAC3780-66-78 20:11:00 Test Item Value Reference Range Interpretation Comments Vanco Tr (test code = Vanco Tr) 20.1 [facility] CenterAdtvlawHAIDOTHOL0055-21-24 20:11:00 Test Item Value Reference Range Interpretation Comments Vanco Tr TND (test code = Vanco Tr TND) 1:00 [facility] CenterXppltfwNFRVICDUK8946-39-25 20:11:00 Test Item Value Reference Range Interpretation Comments Vanco Tr (test code = Vanco Tr) 20.1 [facility] CenterTmyaozqZENNKNNNC2898-63-67 20:11:00 Test Item Value Reference Range Interpretation Comments Vanco Tr TND (test code = Vanco Tr TND) 1:00 [facility] CenterTinevkbUVMOQJAPA0488-23-03 20:11:00 Test Item Value Reference Range Interpretation Comments Vanco Tr (test code = Vanco Tr) 20.1 [facility] CenterBlrjrpkLAVPZXCOW0759-50-15 20:11:00 Test Item Value Reference Range Interpretation Comments Vanco Tr TND (test code = Vanco Tr TND) 1:00 [facility] CenterMruyqzpGVCZDDAIE2906-36-12 20:11:00 Test Item Value Reference Range Interpretation Comments Vanco Tr (test code = Vanco Tr) 20.1 [facility] CenterCcjtoyuLEJZXUZUX3283-85-02 20:11:00 Test Item Value Reference Range Interpretation Comments Vanco Tr TND (test code = Vanco Tr TND) 1:00 [facility] CenterNcphfnjOLBWTTMZM8169-16-79 20:11:00 Test Item Value Reference Range Interpretation Comments Vanco Tr (test code = Vanco Tr) 20.1 [facility] CenterSjuavnpUXYDUWGFQ8370-87-30 20:11:00 Test Item Value Reference Range Interpretation Comments Vanco Tr TND (test code = Vanco Tr TND) 1:00 [facility] CenterEirxkwpSDKZHKIHZ8699-40-47 20:11:00 Test Item Value Reference Range Interpretation Comments Vanco Tr (test code = Vanco Tr) 20.1 [facility] CenterDjoykbaBZPHQBUKH7561-05-63 19:00:00 Test Item Value Reference Range Interpretation Comments Ca Norm WB (test code = Ca Norm WB) 1.14 1.05-1.25 N [facility] CenterVwhquqiGGPSMWMLZ7452-88-59 19:00:00 Test Item Value Reference Range Interpretation Comments Ca Ion WB (test code = Ca Ion WB) 1.10 1.05-1.25 N [facility] CenterIxviqnzFAEWRMFEM9480-88-34 19:00:00 Test Item Value Reference Range Interpretation Comments Ca Norm WB (test code = Ca Norm WB) 1.14 1.05-1.25 N [facility] CenterKirubptCRGNJYUQU0350-05-52 19:00:00 Test Item Value Reference Range Interpretation Comments Ca Ion WB (test code = Ca Ion WB) 1.10 1.05-1.25 N [facility] CenterPfchmenQWPWROHIN7816-43-69 19:00:00 Test Item Value Reference Range Interpretation Comments Ca Norm WB (test code = Ca Norm WB) 1.14 1.05-1.25 N [facility] CenterZriajolXFCWRZSQC0444-38-37 19:00:00 Test Item Value Reference Range Interpretation Comments Ca Ion WB (test code = Ca Ion WB) 1.10 1.05-1.25 N [facility] CenterIdtxrbzPWAAUMDAA0046-70-81 19:00:00 Test Item Value Reference Range Interpretation Comments Ca Norm WB (test code = Ca Norm WB) 1.14 1.05-1.25 N [facility] CenterZfodqhyMQQEGGNWC7063-52-56 19:00:00 Test Item Value Reference Range Interpretation Comments Ca Ion WB (test code = Ca Ion WB) 1.10 1.05-1.25 N [facility]MfddxivXDEYXLVFT3293-21-76 19:00:00 Test Item Value Reference Range Interpretation Comments Ca Norm WB (test code = Ca Norm WB) 1.14 1.05-1.25 N [facility] CenterFybxbijNZBMBQWPU8709-17-79 19:00:00 Test Item Value Reference Range Interpretation Comments Ca Ion WB (test code = Ca Ion WB) 1.10 1.05-1.25 N [facility] CenterJbxefsnLQCETKGAP6633-61-12 19:00:00 Test Item Value Reference Range Interpretation Comments Ca Norm WB (test code = Ca Norm WB) 1.14 1.05-1.25 N [facility] CenterXaumeyeFKSMGPEPK6883-21-65 19:00:00 Test Item Value Reference Range Interpretation Comments Ca Ion WB (test code = Ca Ion WB) 1.10 1.05-1.25 N [facility] CenterJtsrvzqSCMBXIHRH1867-26-75 14:10:18 Test Item Value Reference Range Interpretation Comments Mode Art (test code = A/C (02/25/2013 N Mode Art) 09:10:18) [facility] CenterKcrvwnmPTLFTLAHA3703-63-32 14:10:18 Test Item Value Reference Range Interpretation Comments Allens Art (test code = N/A (02/25/2013 N Allens Art) 09:10:18) [facility] CenterVcmtohfTUELCLXMI6085-25-51 14:10:18 Test Item Value Reference Range Interpretation Comments Temp Art (test code = Temp Art) 37.0 [facility]KetiichRHINJOFTO1991-55-29 14:10:18 Test Item Value Reference Range Interpretation Comments Site Art (test code = A Line (02/25/2013 N Site Art) 09:10:18) [facility] CenterBwacvjsCLGNFKUGW4584-63-27 14:10:18 Test Item Value Reference Range Interpretation Comments O2 Sat Art (test code = O2 Sat Art) 94.6 95.0-100.0 L [facility] CenterIjgexpdZZVAKFECB6517-39-69 14:10:18 Test Item Value Reference Range Interpretation Comments BE Art (test code = 0 See_Comment N [Automa matteo message] The BE Art) system which ge nerated this result transmit matteo reference range : <=2. The reference range was not used to interpr et this result as miesha l/abnormal. [facility] CenterJkmopkiEJFUDRUNP4963-72-60 14:10:18 Test Item Value Reference Range Interpretation Comments HCO3 Art (test code = HCO3 Art) 23 22-26 N [facility] CenterJyskelmWGPFEMJME0231-33-53 14:10:18 Test Item Value Reference Range Interpretation Comments pO2 Art (test code = pO2 Art) 67 80-100 L [facility] CenterLyxemgiDYJSWETCR6727-15-17 14:10:18 Test Item Value Reference Range Interpretation Comments pCO2 Art (test code = pCO2 Art) 30 35-45 A [facility] CenterOkzncvvIKPWCVZGV2828-90-38 14:10:18 Test Item Value Reference Range Interpretation Comments pH Art (test code = pH Art) 7.49 7.35-7.45 H [facility] CenterCaihspfBUIDTRLPJ1612-33-87 14:10:18 Test Item Value Reference Range Interpretation Comments PEEP Art (test code = PEEP Art) 10.0 [facility] CenterYqetoyxKWGAFWMSZ7840-06-50 14:10:18 Test Item Value Reference Range Interpretation Comments FiO2 Art (test code = FiO2 Art) 40.0 [facility] CenterUvsgxunBBBYZZJMI1793-21-09 14:10:18 Test Item Value Reference Range Interpretation Comments Rate Art (test code = Rate Art) 12 [facility] CenterNoudizpOZQJNNWBN5297-16-46 14:10:18 Test Item Value Reference Range Interpretation Comments Vt Art (test code = Vt Art) 400 [facility] CenterNstnwkkRDWPBHFFH1694-01-31 14:10:18 Test Item Value Reference Range Interpretation Comments Mode Art (test code = A/C (02/25/2013 N Mode Art) 09:10:18) [facility] CenterTcojgxaBZITBVHZZ2205-25-21 14:10:18 Test Item Value Reference Range Interpretation Comments Allens Art (test code = N/A (02/25/2013 N Allens Art) 09:10:18) [facility] CenterEkjdphzYFBAOXNOU2578-99-06 14:10:18 Test Item Value Reference Range Interpretation Comments Temp Art (test code = Temp Art) 37.0 [facility] CenterBhgvacjKPWRXDZER6266-76-50 14:10:18 Test Item Value Reference Range Interpretation Comments Site Art (test code = A Line (02/25/2013 N Site Art) 09:10:18) [facility] CenterXybgpteGKCFKPXGC6757-78-69 14:10:18 Test Item Value Reference Range Interpretation Comments O2 Sat Art (test code = O2 Sat Art) 94.6 95.0-100.0 L [facility] CenterUzitfrlOVTKUZVNL6184-16-39 14:10:18 Test Item Value Reference Range Interpretation Comments BE Art (test code = 0 See_Comment N [Automa matteo message] The BE Art) system which ge nerated this result transmit matteo reference range : <=2. The reference range was not used to interpr et this result as imesha l/abnormal. [facility] CenterImxzspiWOJKRPXUY4955-76-32 14:10:18 Test Item Value Reference Range Interpretation Comments HCO3 Art (test code = HCO3 Art) 23 22-26 N [facility] CenterOnxoeotTHIPCEDBE8831-75-92 14:10:18 Test Item Value Reference Range Interpretation Comments pO2 Art (test code = pO2 Art) 67 80-100 L [facility] CenterIfjjzmsPQYSLRHTC9910-47-96 14:10:18 Test Item Value Reference Range Interpretation Comments pCO2 Art (test code = pCO2 Art) 30 35-45 A [facility] CenterQetzuklNERQFMAEB2048-65-09 14:10:18 Test Item Value Reference Range Interpretation Comments pH Art (test code = pH Art) 7.49 7.35-7.45 H [facility] CenterXbfkbzqQFJMBCCTM5313-77-93 14:10:18 Test Item Value Reference Range Interpretation Comments PEEP Art (test code = PEEP Art) 10.0 [facility] CenterDsiskurROQQGOAWP2550-95-65 14:10:18 Test Item Value Reference Range Interpretation Comments FiO2 Art (test code = FiO2 Art) 40.0 [facility] CenterCknjtcpBPIXCMWPA9366-18-15 14:10:18 Test Item Value Reference Range Interpretation Comments Rate Art (test code = Rate Art) 12 [facility] CenterTvlvsfbUURMLRRYI8203-85-64 14:10:18 Test Item Value Reference Range Interpretation Comments Vt Art (test code = Vt Art) 400 [facility] CenterJusjgmoKRIOUXTSC6327-80-09 14:10:18 Test Item Value Reference Range Interpretation Comments Mode Art (test code = A/C (02/25/2013 N Mode Art) 09:10:18) [facility] CenterJkfkiibTSBLPSZUO2728-25-96 14:10:18 Test Item Value Reference Range Interpretation Comments Allens Art (test code = N/A (02/25/2013 N Allens Art) 09:10:18) [facility] CenterIizzklpTNAEWSBDN5552-31-33 14:10:18 Test Item Value Reference Range Interpretation Comments Temp Art (test code = Temp Art) 37.0 [facility] CenterVjgvqbcYUYPMWADF6829-36-78 14:10:18 Test Item Value Reference Range Interpretation Comments Site Art (test code = A Line (02/25/2013 N Site Art) 09:10:18) [facility] CenterXvwtkerJZCRVUQRH8490-85-92 14:10:18 Test Item Value Reference Range Interpretation Comments O2 Sat Art (test code = O2 Sat Art) 94.6 95.0-100.0 L [facility] CenterSxrovxxIRQATVWYR0941-50-71 14:10:18 Test Item Value Reference Range Interpretation Comments BE Art (test code = 0 See_Comment N [Automa matteo message] The BE Art) system which ge nerated this result transmit matteo reference range : <=2. The reference range was not used to interpr et this result as miesha l/abnormal. [facility] CenterAxsmyluWGZWFICUR2587-55-13 14:10:18 Test Item Value Reference Range Interpretation Comments HCO3 Art (test code = HCO3 Art) 23 22-26 N [facility] CenterVpysjiuWYIDUMICS1058-41-85 14:10:18 Test Item Value Reference Range Interpretation Comments pO2 Art (test code = pO2 Art) 67 80-100 L [facility] CenterKmrtumaPEHMRNSLB4306-82-87 14:10:18 Test Item Value Reference Range Interpretation Comments pCO2 Art (test code = pCO2 Art) 30 35-45 A [facility] CenterWplvgjrLRIPBHFHM7589-05-65 14:10:18 Test Item Value Reference Range Interpretation Comments pH Art (test code = pH Art) 7.49 7.35-7.45 H [facility] CenterKytnzodSZUIRDJEN7919-53-88 14:10:18 Test Item Value Reference Range Interpretation Comments PEEP Art (test code = PEEP Art) 10.0 [facility] CenterPvxsafbZADEQUYPT8776-69-45 14:10:18 Test Item Value Reference Range Interpretation Comments FiO2 Art (test code = FiO2 Art) 40.0 [facility] CenterJckirstMARDCILOL8928-94-30 14:10:18 Test Item Value Reference Range Interpretation Comments Rate Art (test code = Rate Art) 12 [facility] CenterWrvotcdMKEBPRCAX5747-20-58 14:10:18 Test Item Value Reference Range Interpretation Comments Vt Art (test code = Vt Art) 400 [facility] CenterMcjvulsWCDVHDWPN0227-01-25 14:10:18 Test Item Value Reference Range Interpretation Comments Mode Art (test code = A/C (02/25/2013 N Mode Art) 09:10:18) [facility] CenterIwcxtwfXVXLFSIPR8477-29-11 14:10:18 Test Item Value Reference Range Interpretation Comments Allens Art (test code = N/A (02/25/2013 N Allens Art) 09:10:18) [facility] CenterYqkvxpfBFAENGEFN8600-74-64 14:10:18 Test Item Value Reference Range Interpretation Comments Temp Art (test code = Temp Art) 37.0 [facility] CenterYowhycsDVFJMHTWU2797-47-08 14:10:18 Test Item Value Reference Range Interpretation Comments Site Art (test code = A Line (02/25/2013 N Site Art) 09:10:18) [facility] CenterEcohjiuIKQUOEJTW7498-08-70 14:10:18 Test Item Value Reference Range Interpretation Comments O2 Sat Art (test code = O2 Sat Art) 94.6 95.0-100.0 L [facility] CenterDqhfwyoKEUYFYVJG3057-08-94 14:10:18 Test Item Value Reference Range Interpretation Comments BE Art (test code = 0 See_Comment N [Automa matteo message] The BE Art) system which ge nerated this result transmit matteo reference range : <=2. The reference range was not used to interpr et this result as miesha l/abnormal. [facility] CenterBzydnafIOFCRPPGJ7511-94-31 14:10:18 Test Item Value Reference Range Interpretation Comments HCO3 Art (test code = HCO3 Art) 23 22-26 N [facility] CenterEwhygpaZAKGVENXR5802-68-72 14:10:18 Test Item Value Reference Range Interpretation Comments pO2 Art (test code = pO2 Art) 67 80-100 L [facility] CenterEirjxczHDLLCONGD6226-05-74 14:10:18 Test Item Value Reference Range Interpretation Comments pCO2 Art (test code = pCO2 Art) 30 35-45 A [facility] CenterYpjqckwZJJXTHFNU2293-18-04 14:10:18 Test Item Value Reference Range Interpretation Comments pH Art (test code = pH Art) 7.49 7.35-7.45 H [facility] CenterQssoxzlBTLVSIIPU2367-48-47 14:10:18 Test Item Value Reference Range Interpretation Comments PEEP Art (test code = PEEP Art) 10.0 [facility] CenterEhhmqjgSVFJFSDQW6068-42-20 14:10:18 Test Item Value Reference Range Interpretation Comments FiO2 Art (test code = FiO2 Art) 40.0 [facility] CenterZnuzyvrAEURVZFME1571-46-47 14:10:18 Test Item Value Reference Range Interpretation Comments Rate Art (test code = Rate Art) 12 [facility] CenterHtxgwdpOXXTRBCJA1978-07-21 14:10:18 Test Item Value Reference Range Interpretation Comments Vt Art (test code = Vt Art) 400 [facility] CenterRhzlzibUXZMTXDTV6460-02-21 14:10:18 Test Item Value Reference Range Interpretation Comments Mode Art (test code = A/C (02/25/2013 N Mode Art) 09:10:18) [facility] CenterIbjpjxkUCBQECPXG8380-64-58 14:10:18 Test Item Value Reference Range Interpretation Comments Allens Art (test code = N/A (02/25/2013 N Allens Art) 09:10:18) [facility] CenterNmlksvlGSCOUIGLQ2379-00-73 14:10:18 Test Item Value Reference Range Interpretation Comments Temp Art (test code = Temp Art) 37.0 [facility] CenterKjzuypyDGSGJIXJU3416-06-31 14:10:18 Test Item Value Reference Range Interpretation Comments Site Art (test code = A Line (02/25/2013 N Site Art) 09:10:18) [facility] CenterZcndjoeCABUYXLLT3231-82-13 14:10:18 Test Item Value Reference Range Interpretation Comments O2 Sat Art (test code = O2 Sat Art) 94.6 95.0-100.0 L [facility] CenterNcdkeduTHSFYSXYI8100-68-31 14:10:18 Test Item Value Reference Range Interpretation Comments BE Art (test code = 0 See_Comment N [Automa matteo message] The BE Art) system which ge nerated this result transmit matteo reference range : <=2. The reference range was not used to interpr et this result as miesha l/abnormal. [facility] CenterHbsbweeJUVPWMWAV9083-87-02 14:10:18 Test Item Value Reference Range Interpretation Comments HCO3 Art (test code = HCO3 Art) 23 22-26 N [facility] CenterDllegibFFXDEMTKN3023-41-47 14:10:18 Test Item Value Reference Range Interpretation Comments pO2 Art (test code = pO2 Art) 67 80-100 L [facility] CenterXzwepjdVVRGZVSZG8053-76-68 14:10:18 Test Item Value Reference Range Interpretation Comments pCO2 Art (test code = pCO2 Art) 30 35-45 A [facility] CenterVlunfdcSKTMIEBUK4210-84-90 14:10:18 Test Item Value Reference Range Interpretation Comments pH Art (test code = pH Art) 7.49 7.35-7.45 H [facility] CenterSnbgdsmZYQKHTGPV7685-60-30 14:10:18 Test Item Value Reference Range Interpretation Comments PEEP Art (test code = PEEP Art) 10.0 [facility] CenterCkkcwbnWSNKGGWDH0011-66-55 14:10:18 Test Item Value Reference Range Interpretation Comments FiO2 Art (test code = FiO2 Art) 40.0 [facility] CenterAqxyvgjYFDOSTMID8039-62-91 14:10:18 Test Item Value Reference Range Interpretation Comments Rate Art (test code = Rate Art) 12 [facility] CenterYpbfvptUNTKFYNNR5349-09-39 14:10:18 Test Item Value Reference Range Interpretation Comments Vt Art (test code = Vt Art) 400 [facility] CenterRtpguenZFFVTBQKR8896-68-04 14:10:18 Test Item Value Reference Range Interpretation Comments Mode Art (test code = A/C (02/25/2013 N Mode Art) 09:10:18) [facility] CenterFsessfzHARPVFIFV0724-90-08 14:10:18 Test Item Value Reference Range Interpretation Comments Allens Art (test code = N/A (02/25/2013 N Allens Art) 09:10:18) [facility] CenterMopvezqCKMQZYMET3253-88-64 14:10:18 Test Item Value Reference Range Interpretation Comments Temp Art (test code = Temp Art) 37.0 [facility] CenterVopoicsIBNADDSXE6820-43-25 14:10:18 Test Item Value Reference Range Interpretation Comments Site Art (test code = A Line (02/25/2013 N Site Art) 09:10:18) [facility] CenterLkufvoiJVZKEGFEI1011-75-08 14:10:18 Test Item Value Reference Range Interpretation Comments O2 Sat Art (test code = O2 Sat Art) 94.6 95.0-100.0 L [facility] CenterAuxwpmoULRVTWICL8696-51-86 14:10:18 Test Item Value Reference Range Interpretation Comments BE Art (test code = 0 See_Comment N [Automa matteo message] The BE Art) system which ge nerated this result transmit matteo reference range : <=2. The reference range was not used to interpr et this result as miesha l/abnormal. [facility]GjfkhciTKVZNNCSJ8538-90-84 14:10:18 Test Item Value Reference Range Interpretation Comments HCO3 Art (test code = HCO3 Art) 23 22-[address] [facility]VfajxagRKVQABYFV2159-53-99 14:10:18 Test Item Value Reference Range Interpretation Comments pO2 Art (test code = pO2 Art) 67 80-100 L [facility] ArlingtonFrrfweyWNTZMVVVR7558-76-09 14:10:18 Test Item Value Reference Range Interpretation Comments pCO2 Art (test code = pCO2 Art) 30 35-45 A [facility] ArlingtonKzfnwbdGDTQPQNFM7933-59-64 14:10:18 Test Item Value Reference Range Interpretation Comments pH Art (test code = pH Art) 7.49 7.35-7.45 H [facility]HtccwlqEDUGJLVZW5733-07-80 14:10:18 Test Item Value Reference Range Interpretation Comments PEEP Art (test code = PEEP Art) 10.0 [facility] ArlingtonBnwwlydTYCEZSMMS7627-60-65 14:10:18 Test Item Value Reference Range Interpretation Comments FiO2 Art (test code = FiO2 Art) 40.0 [facility] ArlingtonZdyabuuBEDMRPISM5251-01-83 14:10:18 Test Item Value Reference Range Interpretation Comments Rate Art (test code = Rate Art) 12 [facility] ArlingtonZowoqzuYQUKZCKEQ5177-47-86 14:10:18 Test Item Value Reference Range Interpretation Comments Vt Art (test code = Vt Art) [address] [facility] [employer] [facility] YEDGOZV7941-62-10 12:55:00 Test Item Value Reference Range Interpretation Comments Antibody Scrn (test Negative (02/25/2013 N code = Antibody Scrn) 07:55:00) [facility] [employer] KMYQQGB1716-13-84 12:55:00 Test Item Value Reference Range Interpretation Comments ABO/Rh (test code = ABO/Rh) A POS [facility] [employer] LSKOVIK0309-32-93 12:55:00 Test Item Value Reference Range Interpretation Comments Antibody Scrn (test Negative (02/25/2013 N code = Antibody Scrn) 07:55:00) [facility] [employer] RQFBWYU0185-72-31 12:55:00 Test Item Value Reference Range Interpretation Comments ABO/Rh (test code = ABO/Rh) A [facility] ZCRITHU0741-60-97 12:55:00 Test Item Value Reference Range Interpretation Comments Antibody Scrn (test Negative (02/25/2013 N code = Antibody Scrn) 07:55:00) [facility] VJVVUNZ1418-06-21 12:55:00 Test Item Value Reference Range Interpretation Comments ABO/Rh (test code = ABO/Rh) A [facility] QGVSYXL8612-98-91 12:55:00 Test Item Value Reference Range Interpretation Comments Antibody Scrn (test Negative (02/25/2013 N code = Antibody Scrn) 07:55:00) [facility] [id number] 12:55:00 Test Item Value Reference Range Interpretation Comments ABO/Rh (test code = ABO/Rh) A [facility] HWBAHWU1868-56-90 12:55:00 Test Item Value Reference Range Interpretation Comments Antibody Scrn (test Negative (02/25/2013 N code = Antibody Scrn) 07:55:00) [facility] WCEGDCZ3883-80-73 12:55:00 Test Item Value Reference Range Interpretation Comments ABO/Rh (test code = ABO/Rh) A [facility] RVQOZBM1334-76-75 12:55:00 Test Item Value Reference Range Interpretation Comments Antibody Scrn (test Negative (02/25/2013 N code = Antibody Scrn) 07:55:00) [facility] QRJFUWK7709-45-76 12:55:00 Test Item Value Reference Range Interpretation Comments ABO/Rh (test code = ABO/Rh) A [facility] KLVMJXH3516-17-48 12:16:00 Test Item Value Reference Range Interpretation Comments RBC product (test code Product available N = RBC product) (02/25/2013 07:16:00) [facility] [id number] 12:16:00 Test Item Value Reference Range Interpretation Comments RBC product (test code Product available N = RBC product) (02/25/2013 07:16:00) [facility] [id number] 12:16:00 Test Item Value Reference Range Interpretation Comments RBC product (test code Product available N = RBC product) (02/25/2013 07:16:00) [facility] BANK [id number] 12:16:00 Test Item Value Reference Range Interpretation Comments RBC product (test code Product available N = RBC product) (02/25/2013 07:16:00) [facility] [id number] 12:16:00 Test Item Value Reference Range Interpretation Comments RBC product (test code Product available N = RBC product) (02/25/2013 07:16:00) [facility] BANK [id number] 12:16:00 Test Item Value Reference Range Interpretation Comments RBC product (test code Product available N = RBC product) (02/25/2013 07:16:00) [facility]SsqpibmZGNAJBVIHB1717-73-72 09:30:00 Test Item Value Reference Range Interpretation Comments Eosinophils (test code = 0.4 See_Comment N [A utomated message] The Eosinophils) system which ge nerated this result tra nsmitted reference range : <=4.0. The reference r katie was not used to int erpret this result as normal/abnormal . [facility] HospitalVyzhsafQYVCSLVFED5916-02-76 09:30:00 Test Item Value Reference Range Interpretation Comments Basophils (test code = 0.3 See_Comment N [Aut omated message] The Basophils) system which ge nerated this result tra nsmitted reference range : <=1.0. The reference r katie was not used to int erpret this result as normal/abnormal . [facility] HospitalLmtqwpwXUDCYDCFOJ6568-85-52 09:30:00 Test Item Value Reference Range Interpretation Comments Eosinophils (test code = 0.4 See_Comment N [A utomated message] The Eosinophils) system which ge nerated this result tra nsmitted reference range : <=4.0. The reference r katie was not used to int erpret this result as normal/abnormal . [facility] HospitalCoykornOBONGZELPW7730-87-84 09:30:00 Test Item Value Reference Range Interpretation Comments Basophils (test code = 0.3 See_Comment N [Aut omated message] The Basophils) system which ge nerated this result tra nsmitted reference range : <=1.0. The reference r katie was not used to int erpret this result as normal/abnormal . [facility] HospitalHxspfkcFLVAEKGHUB7701-13-51 09:30:00 Test Item Value Reference Range Interpretation Comments Eosinophils (test code = 0.4 See_Comment N [A utomated message] The Eosinophils) system which ge nerated this result tra nsmitted reference range : <=4.0. The reference r katie was not used to int erpret this result as normal/abnormal . [facility] HospitalTcknkeoDHQEIDLYGM7309-75-80 09:30:00 Test Item Value Reference Range Interpretation Comments Basophils (test code = 0.3 See_Comment N [Aut omated message] The Basophils) system which ge nerated this result tra nsmitted reference range : <=1.0. The reference r katie was not used to int erpret this result as normal/abnormal . [facility] HospitalNoqxjtkWIWOHJOWIH0945-89-39 09:30:00 Test Item Value Reference Range Interpretation Comments Eosinophils (test code = 0.4 See_Comment N [A utomated message] The Eosinophils) system which ge nerated this result tra nsmitted reference range : <=4.0. The reference r katie was not used to int erpret this result as normal/abnormal . [facility] HospitalLkvrdgvQKGJPLAUZD1552-73-81 09:30:00 Test Item Value Reference Range Interpretation Comments Basophils (test code = 0.3 See_Comment N [Aut omated message] The Basophils) system which ge nerated this result tra nsmitted reference range : <=1.0. The reference r katie was not used to int erpret this result as normal/abnormal . [facility] HospitalEnvqkbjMJCFZVUHLJ3086-73-27 09:30:00 Test Item Value Reference Range Interpretation Comments Eosinophils (test code = 0.4 See_Comment N [A utomated message] The Eosinophils) system which ge nerated this result tra nsmitted reference range : <=4.0. The reference r katie was not used to int erpret this result as normal/abnormal . [facility] HospitalLawuguxOZZNEQRRFR0087-20-10 09:30:00 Test Item Value Reference Range Interpretation Comments Basophils (test code = 0.3 See_Comment N [Aut omated message] The Basophils) system which ge nerated this result tra nsmitted reference range : <=1.0. The reference r katie was not used to int erpret this result as normal/abnormal . [facility] HospitalMvvddyfCDXCJIZKRO8854-48-03 09:30:00 Test Item Value Reference Range Interpretation Comments Eosinophils (test code = 0.4 See_Comment N [A utomated message] The Eosinophils) system which ge nerated this result tra nsmitted reference range : <=4.0. The reference r katie was not used to int erpret this result as normal/abnormal . [facility] HospitalTrawdlvHASYBLOJFW3138-02-47 09:30:00 Test Item Value Reference Range Interpretation Comments Basophils (test code = 0.3 See_Comment N [Aut omated message] The Basophils) system which ge nerated this result tra nsmitted reference range : <=1.0. The reference r katie was not used to int erpret this result as normal/abnormal . [facility]OyfozjnRJYTLZTHJ5784-68-42 19:56:06 Test Item Value Reference Range Interpretation Comments Rate Art (test code = Rate Art) [address] [place], [place] [address]2013-08-31 19:56:06 Test Item Value Reference Range Interpretation Comments Vt Art (test code = Vt Art) 400 [facility] CenterOqkjhufMBIKBRFVF9226-10-29 19:56:06 Test Item Value Reference Range Interpretation Comments Rate Art (test code = Rate Art) [address] [place], [place] [address]2013-08-31 19:56:06 Test Item Value Reference Range Interpretation Comments Vt Art (test code = Vt Art) 400 [facility] CenterRmdfgaxMJNMCILHQ3816-06-89 19:56:06 Test Item Value Reference Range Interpretation Comments Rate Art (test code = Rate Art) [address] [place], [place] [address]2013-08-31 19:56:06 Test Item Value Reference Range Interpretation Comments Vt Art (test code = Vt Art) 400 [facility] CenterSykpaczPSSGWZFBS6220-01-80 19:56:06 Test Item Value Reference Range Interpretation Comments Rate Art (test code = Rate Art) [address] [place], [place] [id number] 19:56:06 Test Item Value Reference Range Interpretation Comments Vt Art (test code = Vt Art) 400 [facility] CenterNylqxscKAUWUMMTO1202-62-28 19:56:06 Test Item Value Reference Range Interpretation Comments Rate Art (test code = Rate Art) [address] [place], [place] [address]2013-08-31 19:56:06 Test Item Value Reference Range Interpretation Comments Vt Art (test code = Vt Art) 400 [facility] CenterGiwlvjmWMDBLUADC6148-52-33 19:56:06 Test Item Value Reference Range Interpretation Comments Rate Art (test code = Rate Art) 12 [facility] CenterGoimrcdEXBCYPOBT0009-10-06 19:56:06 Test Item Value Reference Range Interpretation Comments Vt Art (test code = Vt Art) 400 [facility] CenterIycvmajSFTVRKXVD6561-16-08 18:00:00 Test Item Value Reference Range Interpretation Comments Phosphorus (test code = Phosphorus) 3.2 2.5-4.5 N [facility] CenterEciccttWEQGUAZTQ5031-15-65 18:00:00 Test Item Value Reference Range Interpretation Comments Phosphorus (test code = Phosphorus) 3.2 2.5-4.5 N [facility] CenterUigwpfjJXZAOFQCG1123-01-56 18:00:00 Test Item Value Reference Range Interpretation Comments Phosphorus (test code = Phosphorus) 3.2 2.5-4.5 N [facility] CenterSvblgcxTKSSHMJHJ3285-32-06 18:00:00 Test Item Value Reference Range Interpretation Comments Phosphorus (test code = Phosphorus) 3.2 2.5-4.5 N [facility] CenterDvnbztwQXTPCZAZM2235-73-50 18:00:00 Test Item Value Reference Range Interpretation Comments Phosphorus (test code = Phosphorus) 3.2 2.5-4.5 N [facility] CenterBtdpptbRLQQZBSLN2554-08-96 18:00:00 Test Item Value Reference Range Interpretation Comments Phosphorus (test code = Phosphorus) 3.2 2.5-4.5 N [facility] HospitalPcyilyxLLPJXGYRYA9279-89-51 08:30:29 Test Item Value Reference Range Interpretation Comments Plav Effect Plt (test code = Plav 232 Effect Plt) [facility] HospitalSiwgoclXSNIVURFBJ4937-46-78 08:30:29 Test Item Value Reference Range Interpretation Comments Plav Effect Plt (test code = Plav 232 Effect Plt) [facility] HospitalTbvpdjdSGKMUELATO7005-07-74 08:30:29 Test Item Value Reference Range Interpretation Comments Plav Effect Plt (test code = Plav 232 Effect Plt) [facility] HospitalWgplcadCAWLAWCLMF3133-75-83 08:30:29 Test Item Value Reference Range Interpretation Comments Plav Effect Plt (test code = Plav 232 Effect Plt) [facility] HospitalJbnfpecXQFMGJVEIC1036-47-03 08:30:29 Test Item Value Reference Range Interpretation Comments Plav Effect Plt (test code = Plav 232 Effect Plt) [facility] HospitalGpucitkWYOIGKYYCG5934-60-57 08:30:29 Test Item Value Reference Range Interpretation Comments Plav Effect Plt (test code = Plav 232 Effect Plt) [facility] CenterTmrarphAKESDAHNL6954-54-70 07:55:00 Test Item Value Reference Range Interpretation Comments CK MB Index (test 0.6 See_Comment N [Automate d message] The code = CK MB Index) system w [facility] generated this result transmit matteo reference range : <=2.5. The reference range was not used to interpr et this result as miesha l/abnormal. [facility] CenterSzkwilxQKUCCSKLE3384-27-47 07:55:00 Test Item Value Reference Range Interpretation Comments Ca Norm WB (test code = Ca Norm WB) 0.99 1.05-1.25 L [facility] CenterDrhfjmyGHFEDMSFT0455-24-82 07:55:00 Test Item Value Reference Range Interpretation Comments Ca Ion WB (test code = Ca Ion WB) 0.97 1.05-1.25 L [facility] CenterLlvzeeiPNBXTAIMZ2489-72-57 07:55:00 Test Item Value Reference Range Interpretation Comments Magnesium Lvl (test code = Magnesium 2.1 1.8-2.4 N Lvl) [facility] CenterMtnebopXNJMKMKUF8316-08-46 07:55:00 Test Item Value Reference Range Interpretation Comments Phosphorus (test code = Phosphorus) 1.4 2.5-4.5 A [facility] CenterGpcdcwvMVOPLAAXT4839-51-44 07:55:00 Test Item Value Reference Range Interpretation Comments CK MB (test code = CK MB) 6.0 0.5-3.6 [facility] CenterLybulhaIAOKTVHCS7460-11-89 07:55:00 Test Item Value Reference Range Interpretation Comments Total CK (test code = Total CK) 960 12-191 [facility] CenterMokcinxDYLQETGCJ2579-73-15 07:55:00 Test Item Value Reference Range Interpretation Comments Troponin-I (test code 1.11 See_Comment A [Auto mated message] The = Troponin-I) system which g enerated this result transmit matteo reference range : <=0.40. The reference r katie was not used to interpr et this result as miesha l/abnormal. [facility] HospitalXxuheekCMCMAXTZLH9488-24-89 07:55:00 Test Item Value Reference Range Interpretation Comments Basophils (test code = 0.1 See_Comment N [Aut omated message] The Basophils) system which ge nerated this result tra nsmitted reference range : <=1.0. The reference r katie was not used to int erpret this result as normal/abnormal . [facility] HospitalXsmlujpHOLZZCVEBN6748-47-39 07:55:00 Test Item Value Reference Range Interpretation Comments Eosinophils (test code = 0.1 See_Comment N [A utomated message] The Eosinophils) system which ge nerated this result tra nsmitted reference range : <=4.0. The reference r katie was not used to int erpret this result as normal/abnormal . [facility] HospitalSyvieocCEUAAILIHP1149-87-87 07:55:00 Test Item Value Reference Range Interpretation Comments Eosinophils # (test code 0.0 See_Comment N [A utomated message] The = Eosinophils #) system whic h generated this result tra nsmitted reference range : <=0.5. The reference r katie was not used to int erpret this result as normal/abnormal . [facility] HospitalXzvcoqsZTWBFSRMKK8006-96-74 07:55:00 Test Item Value Reference Range Interpretation Comments Basophils # (test code 0.0 See_Comment N [Aut omated message] The = Basophils #) system which generated this result tra nsmitted reference range : <=0.2. The reference r katie was not used to int erpret this result as normal/abnormal . [facility] HospitalXpberjpKONYMGZFDZ2158-83-43 07:55:00 Test Item Value Reference Range Interpretation Comments INR (test code = INR) 1.38 0.85-1.17 H [facility] HospitalMdsxjhtGMBGILGPUA5738-03-51 07:55:00 Test Item Value Reference Range Interpretation Comments PT (test code = PT) 16.8 s 12.0-14.7 H [facility] HospitalUosjphlUQHWXMBRJM1933-22-78 07:55:00 Test Item Value Reference Range Interpretation Comments PTT (test code = PTT) 35.5 s 22.9-35.8 N [facility] CenterJcfwbctUTDBKLXTC9654-36-59 07:55:00 Test Item Value Reference Range Interpretation Comments CK MB Index (test 0.6 See_Comment N [Automate d message] The code = CK MB Index) system [facility] generated this result transmit matteo reference range : <=2.5. The reference range was not used to interpr et this result as miesha l/abnormal. [facility] CenterBzfruxbBQRJLAWVP3472-67-55 07:55:00 Test Item Value Reference Range Interpretation Comments Ca Norm WB (test code = Ca Norm WB) 0.99 1.05-1.25 L [facility] CenterXbkuzxuCNOGCBZDG3623-32-15 07:55:00 Test Item Value Reference Range Interpretation Comments Ca Ion WB (test code = Ca Ion WB) 0.97 1.05-1.25 L [facility] CenterQoyycmbGZNIPNKHY6899-64-26 07:55:00 Test Item Value Reference Range Interpretation Comments Magnesium Lvl (test code = Magnesium 2.1 1.8-2.4 N Lvl) [facility] CenterMuvvnolSBINOMIET8118-72-52 07:55:00 Test Item Value Reference Range Interpretation Comments Phosphorus (test code = Phosphorus) 1.4 2.5-4.5 A [facility] CenterHvmcsuwQRGTIDEIO2492-57-58 07:55:00 Test Item Value Reference Range Interpretation Comments CK MB (test code = CK MB) 6.0 0.5-3.6 H [facility] CenterLphgotxKVHKCSXTH7043-72-91 07:55:00 Test Item Value Reference Range Interpretation Comments Total CK (test code = Total CK) 960 12-191 H [facility] CenterYcjteqsRADSWIQJX3514-10-49 07:55:00 Test Item Value Reference Range Interpretation Comments Troponin-I (test code 1.11 See_Comment A [Auto mated message] The = Troponin-I) system which g enerated this result transmit matteo reference range : <=0.40. The reference r katie was not used to interpr et this result as miesha l/abnormal. [facility] HospitalIwfowzoISDQPPAMXW2810-51-30 07:55:00 Test Item Value Reference Range Interpretation Comments Basophils (test code = 0.1 See_Comment N [Aut omated message] The Basophils) system which ge nerated this result tra nsmitted reference range : <=1.0. The reference r katie was not used to int erpret this result as normal/abnormal . [facility] HospitalWthertqTUPLCBHVFH1029-43-29 07:55:00 Test Item Value Reference Range Interpretation Comments Eosinophils (test code = 0.1 See_Comment N [A utomated message] The Eosinophils) system which ge nerated this result tra nsmitted reference range : <=4.0. The reference r katie was not used to int erpret this result as normal/abnormal . [facility] HospitalKsenknfCNAUIVPNYW4551-24-85 07:55:00 Test Item Value Reference Range Interpretation Comments Eosinophils # (test code 0.0 See_Comment N [A utomated message] The = Eosinophils #) system whic h generated this result tra nsmitted reference range : <=0.5. The reference r katie was not used to int erpret this result as normal/abnormal . [facility] HospitalLpfjyxiQXAKVACBFD4133-30-78 07:55:00 Test Item Value Reference Range Interpretation Comments Basophils # (test code 0.0 See_Comment N [Aut omated message] The = Basophils #) system which generated this result tra nsmitted reference range : <=0.2. The reference r katie was not used to int erpret this result as normal/abnormal . [facility] HospitalNuqfzzqKSPAICDPQE0032-28-45 07:55:00 Test Item Value Reference Range Interpretation Comments INR (test code = INR) 1.38 0.85-1.17 H [facility] HospitalFuvuediTXTVOSBLBA6475-74-99 07:55:00 Test Item Value Reference Range Interpretation Comments PT (test code = PT) 16.8 s 12.0-14.7 H [facility] HospitalItutlqsWMBPDCYTMZ0112-16-35 07:55:00 Test Item Value Reference Range Interpretation Comments PTT (test code = PTT) 35.5 s 22.9-35.8 N [facility] CenterQkemqkzGUNKMVHZK6840-71-21 07:55:00 Test Item Value Reference Range Interpretation Comments CK MB Index (test 0.6 See_Comment N [Automate d message] The code = CK MB Index) system [facility] generated this result transmit matteo reference range : <=2.5. The reference range was not used to interpr et this result as miesha l/abnormal. [facility] CenterGisjgjtRWXGEQLRZ3980-26-31 07:55:00 Test Item Value Reference Range Interpretation Comments Ca Norm WB (test code = Ca Norm WB) 0.99 1.05-1.25 L [facility] CenterWotkridDGGTGBCLE9914-09-73 07:55:00 Test Item Value Reference Range Interpretation Comments Ca Ion WB (test code = Ca Ion WB) 0.97 1.05-1.25 L [facility] CenterZmdgcywTLACAXAYM2420-45-59 07:55:00 Test Item Value Reference Range Interpretation Comments Magnesium Lvl (test code = Magnesium 2.1 1.8-2.4 N Lvl) [facility] CenterFuuyjtfUPTQGQUQN5878-41-71 07:55:00 Test Item Value Reference Range Interpretation Comments Phosphorus (test code = Phosphorus) 1.4 2.5-4.5 A [facility] CenterXcdxbubIOGJUIUAO6776-63-54 07:55:00 Test Item Value Reference Range Interpretation Comments CK MB (test code = CK MB) 6.0 0.5-3.6 H [facility] CenterMiwbspfWCMFTLWPK5439-64-67 07:55:00 Test Item Value Reference Range Interpretation Comments Total CK (test code = Total CK) 960 12-191 H [facility] CenterLtstlyzHSFOLMAPF6092-27-09 07:55:00 Test Item Value Reference Range Interpretation Comments Troponin-I (test code 1.11 See_Comment A [Auto mated message] The = Troponin-I) system which g enerated this result transmit matteo reference range : <=0.40. The reference r katie was not used to interpr et this result as miesha l/abnormal. [facility] HospitalAzgyfkqTSMNXUOOVG8476-82-61 07:55:00 Test Item Value Reference Range Interpretation Comments Basophils (test code = 0.1 See_Comment N [Aut omated message] The Basophils) system which ge nerated this result tra nsmitted reference range : <=1.0. The reference r katie was not used to int erpret this result as normal/abnormal . [facility] HospitalRrseectQAFNCZSESE4295-98-90 07:55:00 Test Item Value Reference Range Interpretation Comments Eosinophils (test code = 0.1 See_Comment N [A utomated message] The Eosinophils) system which ge nerated this result tra nsmitted reference range : <=4.0. The reference r katie was not used to int erpret this result as normal/abnormal . [facility] HospitalHkdkstqJSHAQCXTUI1002-25-92 07:55:00 Test Item Value Reference Range Interpretation Comments Eosinophils # (test code 0.0 See_Comment N [A utomated message] The = Eosinophils #) system whic h generated this result tra nsmitted reference range : <=0.5. The reference r katie was not used to int erpret this result as normal/abnormal . [facility] HospitalGtyiyioZXJHSCCUVV0135-03-43 07:55:00 Test Item Value Reference Range Interpretation Comments Basophils # (test code 0.0 See_Comment N [Aut omated message] The = Basophils #) system which generated this result tra nsmitted reference range : <=0.2. The reference r katie was not used to int erpret this result as normal/abnormal . [facility] HospitalCmrfqqiCGJILSNHBG0616-62-80 07:55:00 Test Item Value Reference Range Interpretation Comments INR (test code = INR) 1.38 0.85-1.17 H [facility] HospitalNktmkdnPZSLZUYGCQ1224-52-62 07:55:00 Test Item Value Reference Range Interpretation Comments PT (test code = PT) 16.8 s 12.0-14.7 H [facility] HospitalRngqfwmGYIVFUGEGP9782-32-12 07:55:00 Test Item Value Reference Range Interpretation Comments PTT (test code = PTT) 35.5 s 22.9-35.8 N [facility] CenterDcjxkarVYTTFMPAB0054-43-21 07:55:00 Test Item Value Reference Range Interpretation Comments CK MB Index (test 0.6 See_Comment N [Automate d message] The code = CK MB Index) system [facility] generated this result transmit matteo reference range : <=2.5. The reference range was not used to interpr et this result as miesha l/abnormal. [facility] CenterRzoxocsKEVPSALWF0497-24-22 07:55:00 Test Item Value Reference Range Interpretation Comments Ca Norm WB (test code = Ca Norm WB) 0.99 1.05-1.25 L [facility] CenterTsaejxrYZLIQDZMD3779-27-94 07:55:00 Test Item Value Reference Range Interpretation Comments Ca Ion WB (test code = Ca Ion WB) 0.97 1.05-1.25 L [facility] CenterVfgtiohDVFGKGRNU5694-96-49 07:55:00 Test Item Value Reference Range Interpretation Comments Magnesium Lvl (test code = Magnesium 2.1 1.8-2.4 N Lvl) [facility] CenterXcfdaxxWQELTEQPD9150-55-99 07:55:00 Test Item Value Reference Range Interpretation Comments Phosphorus (test code = Phosphorus) 1.4 2.5-4.5 A [facility] CenterNplrrftODGLSKYCW2535-58-13 07:55:00 Test Item Value Reference Range Interpretation Comments CK MB (test code = CK MB) 6.0 0.5-3.6 H [facility] CenterLjecdtpGGQURXHSM2729-15-06 07:55:00 Test Item Value Reference Range Interpretation Comments Total CK (test code = Total CK) 960 12-191 H [facility] CenterGmxbxynEFMVTNTNE8999-98-46 07:55:00 Test Item Value Reference Range Interpretation Comments Troponin-I (test code 1.11 See_Comment A [Auto mated message] The = Troponin-I) system which g enerated this result transmit matteo reference range : <=0.40. The reference r katie was not used to interpr et this result as miesha l/abnormal. [facility] HospitalCvtxtugFUMOZTHXVZ4006-68-26 07:55:00 Test Item Value Reference Range Interpretation Comments Basophils (test code = 0.1 See_Comment N [Aut omated message] The Basophils) system which ge nerated this result tra nsmitted reference range : <=1.0. The reference r katie was not used to int erpret this result as normal/abnormal . [facility] HospitalNnpphccTUZZAWHJGB2075-12-48 07:55:00 Test Item Value Reference Range Interpretation Comments Eosinophils (test code = 0.1 See_Comment N [A utomated message] The Eosinophils) system which ge nerated this result tra nsmitted reference range : <=4.0. The reference r katie was not used to int erpret this result as normal/abnormal . [facility] HospitalIvnzhdjTKKPSJDSMA9112-57-58 07:55:00 Test Item Value Reference Range Interpretation Comments Eosinophils # (test code 0.0 See_Comment N [A utomated message] The = Eosinophils #) system whic h generated this result tra nsmitted reference range : <=0.5. The reference r katie was not used to int erpret this result as normal/abnormal . [facility] HospitalUgvicuvPNKYEDGWII4883-54-25 07:55:00 Test Item Value Reference Range Interpretation Comments Basophils # (test code 0.0 See_Comment N [Aut omated message] The = Basophils #) system which generated this result tra nsmitted reference range : <=0.2. The reference r katie was not used to int erpret this result as normal/abnormal . [facility] HospitalPlhpghbJUNAVGSUOC4915-26-54 07:55:00 Test Item Value Reference Range Interpretation Comments INR (test code = INR) 1.38 0.85-1.17 H [facility] HospitalWcfiswoREXQUSTLUB3852-43-95 07:55:00 Test Item Value Reference Range Interpretation Comments PT (test code = PT) 16.8 s 12.0-14.7 H [facility] HospitalGhqffidPLUCGCMJCE1523-48-76 07:55:00 Test Item Value Reference Range Interpretation Comments PTT (test code = PTT) 35.5 s 22.9-35.8 N [facility] CenterBhbssxmCKCAGMZCO9437-01-38 07:55:00 Test Item Value Reference Range Interpretation Comments CK MB Index (test 0.6 See_Comment N [Automate d message] The code = CK MB Index) system [facility] generated this result transmit matteo reference range : <=2.5. The reference range was not used to interpr et this result as miesha l/abnormal. [facility] CenterDxgtypnSIMDXRXFE2726-39-21 07:55:00 Test Item Value Reference Range Interpretation Comments Ca Norm WB (test code = Ca Norm WB) 0.99 1.05-1.25 L [facility] CenterJzprmypVOODNFXNA5325-51-26 07:55:00 Test Item Value Reference Range Interpretation Comments Ca Ion WB (test code = Ca Ion WB) 0.97 1.05-1.25 L [facility] CenterHergyqeAGTORRVZQ8139-72-39 07:55:00 Test Item Value Reference Range Interpretation Comments Magnesium Lvl (test code = Magnesium 2.1 1.8-2.4 N Lvl) [facility] CenterTouwfxwJYCFTHBKV5079-49-27 07:55:00 Test Item Value Reference Range Interpretation Comments Phosphorus (test code = Phosphorus) 1.4 2.5-4.5 A [facility] CenterEvemizjYPVYMWCRI6463-15-21 07:55:00 Test Item Value Reference Range Interpretation Comments CK MB (test code = CK MB) 6.0 0.5-3.6 H [facility] CenterHvwuguaXZZGSRPQR8246-00-04 07:55:00 Test Item Value Reference Range Interpretation Comments Total CK (test code = Total CK) 960 12-191 H [facility] CenterCrqlyznXGHBYKJIA7675-52-49 07:55:00 Test Item Value Reference Range Interpretation Comments Troponin-I (test code 1.11 See_Comment A [Auto mated message] The = Troponin-I) system which g enerated this result transmit matteo reference range : <=0.40. The reference r katie was not used to interpr et this result as miesha l/abnormal. [facility] HospitalDorqbnzVTFUJUAOSL6900-45-33 07:55:00 Test Item Value Reference Range Interpretation Comments Basophils (test code = 0.1 See_Comment N [Aut omated message] The Basophils) system which ge nerated this result tra nsmitted reference range : <=1.0. The reference r katie was not used to int erpret this result as normal/abnormal . [facility] HospitalTfaoqqjHIZXUNQBAF6339-15-82 07:55:00 Test Item Value Reference Range Interpretation Comments Eosinophils (test code = 0.1 See_Comment N [A utomated message] The Eosinophils) system which ge nerated this result tra nsmitted reference range : <=4.0. The reference r katie was not used to int erpret this result as normal/abnormal . [facility] HospitalGnhewzfIIEVRUZSWF5607-67-87 07:55:00 Test Item Value Reference Range Interpretation Comments Eosinophils # (test code 0.0 See_Comment N [A utomated message] The = Eosinophils #) system wh h generated this result tra nsmitted reference range : <=0.5. The reference r katie was not used to int erpret this result as normal/abnormal . [facility] HospitalDdpotdpXFDWGMVZGR6413-80-16 07:55:00 Test Item Value Reference Range Interpretation Comments Basophils # (test code 0.0 See_Comment N [Aut omated message] The = Basophils #) system which generated this result tra nsmitted reference range : <=0.2. The reference r katie was not used to int erpret this result as normal/abnormal . [facility] HospitalTtnvsbpSSNFNTQHAJ0724-82-41 07:55:00 Test Item Value Reference Range Interpretation Comments INR (test code = INR) 1.38 0.85-1.17 H [facility] HospitalNluimqePRKUFDJACY8405-68-55 07:55:00 Test Item Value Reference Range Interpretation Comments PT (test code = PT) 16.8 s 12.0-14.7 H [facility] HospitalVrpxhayYTNKUKBQAN1458-05-82 07:55:00 Test Item Value Reference Range Interpretation Comments PTT (test code = PTT) 35.5 s 22.9-35.8 N [facility] CenterItxmdgpBKYDXRCNN4483-98-21 07:55:00 Test Item Value Reference Range Interpretation Comments CK MB Index (test 0.6 See_Comment N [Automate d message] The code = CK MB Index) system w hich generated this result transmit matteo reference range : <=2.5. The reference range was not used to interpr et this result as miesha l/abnormal. [facility] CenterMlpiqyzSRZMAYLUG7336-31-23 07:55:00 Test Item Value Reference Range Interpretation Comments Ca Norm WB (test code = Ca Norm WB) 0.99 1.05-1.25 L [facility] CenterDjjkkpsOCEBUWCYY2162-40-84 07:55:00 Test Item Value Reference Range Interpretation Comments Ca Ion WB (test code = Ca Ion WB) 0.97 1.05-1.25 L [facility] CenterDtspgflZTZFKXAFG5464-65-77 07:55:00 Test Item Value Reference Range Interpretation Comments Magnesium Lvl (test code = Magnesium 2.1 1.8-2.4 N Lvl) [facility] CenterJwvfzzsANJPZIXZI9799-92-25 07:55:00 Test Item Value Reference Range Interpretation Comments Phosphorus (test code = Phosphorus) 1.4 2.5-4.5 A [facility] CenterWkvtyefCEGWTVIDP3615-46-00 07:55:00 Test Item Value Reference Range Interpretation Comments CK MB (test code = CK MB) 6.0 0.5-3.6 H [facility] CenterRfmnozkLCENTGHDH0501-14-56 07:55:00 Test Item Value Reference Range Interpretation Comments Total CK (test code = Total CK) 960 12-191 H [facility] CenterEbseeukTCDTMWMUH3111-69-33 07:55:00 Test Item Value Reference Range Interpretation Comments Troponin-I (test code 1.11 See_Comment A [Auto mated message] The = Troponin-I) system which g enerated this result transmit matteo reference range : <=0.40. The reference r katie was not used to interpr et this result as miesha l/abnormal. [facility] HospitalChfoyjpYYPCALGSNQ9967-90-53 07:55:00 Test Item Value Reference Range Interpretation Comments Basophils (test code = 0.1 See_Comment N [Aut omated message] The Basophils) system which ge nerated this result tra nsmitted reference range : <=1.0. The reference r katie was not used to int erpret this result as normal/abnormal . [facility] HospitalYdbltatLZPCEWJZYC1049-24-67 07:55:00 Test Item Value Reference Range Interpretation Comments Eosinophils (test code = 0.1 See_Comment N [A utomated message] The Eosinophils) system which ge nerated this result tra nsmitted reference range : <=4.0. The reference r katie was not used to int erpret this result as normal/abnormal . [facility] HospitalRzluqseVADJKBMVOC9815-16-97 07:55:00 Test Item Value Reference Range Interpretation Comments Eosinophils # (test code 0.0 See_Comment N [A utomated message] The = Eosinophils #) system whic h generated this result tra nsmitted reference range : <=0.5. The reference r katie was not used to int erpret this result as normal/abnormal . [facility] HospitalDxzajphRAXYJVNAGG6027-79-04 07:55:00 Test Item Value Reference Range Interpretation Comments Basophils # (test code 0.0 See_Comment N [Aut omated message] The = Basophils #) system which generated this result tra nsmitted reference range : <=0.2. The reference r katie was not used to int erpret this result as normal/abnormal . [facility] HospitalOpcooviGQQHXXJLCA2948-29-31 07:55:00 Test Item Value Reference Range Interpretation Comments INR (test code = INR) 1.38 0.85-1.17 H [facility] HospitalKsvkkxlFGUIISTLSC0965-00-30 07:55:00 Test Item Value Reference Range Interpretation Comments PT (test code = PT) 16.8 s 12.0-14.7 H [facility] HospitalKtabucuRCZRMOAGGJ6425-53-74 07:55:00 Test Item Value Reference Range Interpretation Comments PTT (test code = PTT) 35.5 s 22.9-35.8 N [facility] IWMBMTK1946-19-98 05:54:00 Test Item Value Reference Range Interpretation Comments RBC product (test code Product available N = RBC product) (02/24/2013 00:54:00) [facility] WYTIVZW1495-09-33 05:54:00 Test Item Value Reference Range Interpretation Comments RBC product (test code Product available N = RBC product) (02/24/2013 00:54:00) [facility] NYTOVOA2217-38-82 05:54:00 Test Item Value Reference Range Interpretation Comments RBC product (test code Product available N = RBC product) (02/24/2013 00:54:00) [facility] [employer] [id number] 05:54:00 Test Item Value Reference Range Interpretation Comments RBC product (test code Product available N = RBC product) (02/24/2013 00:54:00) [facility] [id number] 05:54:00 Test Item Value Reference Range Interpretation Comments RBC product (test code Product available N = RBC product) (02/24/2013 00:54:00) [facility] [id number] 05:54:00 Test Item Value Reference Range Interpretation Comments RBC product (test code Product available N = RBC product) (02/24/2013 00:54:00) [facility] HospitalHfcaesiYFHSMFFJOK7289-49-30 01:45:00 Test Item Value Reference Range Interpretation Comments PTT (test code = PTT) 44.0 s 22.9-35.8 H [facility] HospitalEesbnczQIHHMIXSGR3569-77-21 01:45:00 Test Item Value Reference Range Interpretation Comments INR (test code = INR) 1.34 0.85-1.17 H [facility] HospitalRjykcaiIVNSUHVKWQ4836-87-13 01:45:00 Test Item Value Reference Range Interpretation Comments PT (test code = PT) 16.4 s 12.0-14.7 H [facility] HospitalHvozwwgPFWFITIFAH2825-29-16 01:45:00 Test Item Value Reference Range Interpretation Comments PTT (test code = PTT) 44.0 s 22.9-35.8 H [facility] HospitalSobmplbGMMYJSIYJH6713-22-98 01:45:00 Test Item Value Reference Range Interpretation Comments INR (test code = INR) 1.34 0.85-1.17 H [facility] HospitalYbnejwiRHVEZJVACA8949-30-03 01:45:00 Test Item Value Reference Range Interpretation Comments PT (test code = PT) 16.4 s 12.0-14.7 H [facility] HospitalGkeqcdeGQQYIEGBBW2294-84-50 01:45:00 Test Item Value Reference Range Interpretation Comments PTT (test code = PTT) 44.0 s 22.9-35.8 H [facility] HospitalYxsnregRUUSTJNGFE6187-47-89 01:45:00 Test Item Value Reference Range Interpretation Comments INR (test code = INR) 1.34 0.85-1.17 H [facility] HospitalPpeyrpzYVZDIZONDL3132-11-31 01:45:00 Test Item Value Reference Range Interpretation Comments PT (test code = PT) 16.4 s 12.0-14.7 H [facility] HospitalQerildoMWAFACMPQH7084-24-56 01:45:00 Test Item Value Reference Range Interpretation Comments PTT (test code = PTT) 44.0 s 22.9-35.8 H [facility] HospitalPleouktEBKEVCAXTM5212-39-00 01:45:00 Test Item Value Reference Range Interpretation Comments INR (test code = INR) 1.34 0.85-1.17 H [facility] HospitalLflasdjTRHFVDNQEC6599-84-93 01:45:00 Test Item Value Reference Range Interpretation Comments PT (test code = PT) 16.4 s 12.0-14.7 H [facility]LfkwoyiHCMZVXCCOB1414-82-00 01:45:00 Test Item Value Reference Range Interpretation Comments PTT (test code = PTT) 44.0 s 22.9-35.8 H [facility] HospitalMacvrjqIPPQDPVEUX0722-18-44 01:45:00 Test Item Value Reference Range Interpretation Comments INR (test code = INR) 1.34 0.85-1.17 H [facility] HospitalBtingtwNOLDZBZXAD3152-69-87 01:45:00 Test Item Value Reference Range Interpretation Comments PT (test code = PT) 16.4 s 12.0-14.7 H [facility] HospitalKkxqiisEQNBDYBDFO1159-69-91 01:45:00 Test Item Value Reference Range Interpretation Comments PTT (test code = PTT) 44.0 s 22.9-35.8 H [facility] HospitalOoosrarKPNRJFRCAZ6972-50-21 01:45:00 Test Item Value Reference Range Interpretation Comments INR (test code = INR) 1.34 0.85-1.17 H [facility] HospitalAgvgjxrHCXOZSPTAW3096-08-14 01:45:00 Test Item Value Reference Range Interpretation Comments PT (test code = PT) 16.4 s 12.0-14.7 H [facility]PdqrmqtHACSRBRGU6953-60-43 18:10:00 Test Item Value Reference Range Interpretation Comments Vanco Tr (test code = Vanco Tr) 11.7 [facility] CenterZzzjejjQKGBZVWGA6467-04-34 18:10:00 Test Item Value Reference Range Interpretation Comments Vanco Tr TND (test code = Vanco Tr TND) unk [facility] CenterGgbpidsBNYBUCSAN1160-00-26 18:10:00 Test Item Value Reference Range Interpretation Comments Vanco Tr (test code = Vanco Tr) 11.7 [facility] CenterZczabkpUNQPKYJQF0956-70-49 18:10:00 Test Item Value Reference Range Interpretation Comments Vanco Tr TND (test code = Vanco Tr TND) [facility]17 18:10:00 Test Item Value Reference Range Interpretation Comments Vanco Tr (test code = Vanco Tr) 11.7 [facility]UtroaqkLATQMDHRQ7659-97-15 18:10:00 Test Item Value Reference Range Interpretation Comments Vanco Tr TND (test code = Vanco Tr TND) [facility]LdbkqsyXLLNTKCOE3073-16-68 18:10:00 Test Item Value Reference Range Interpretation Comments Vanco Tr (test code = Vanco Tr) 11.7 [facility] ArlingtonNcoebbjHMIMJKDDA9523-71-76 18:10:00 Test Item Value Reference Range Interpretation Comments Vanco Tr TND (test code = Vanco Tr TND) [facility]KlitxklQAESEUAWB5743-86-86 18:10:00 Test Item Value Reference Range Interpretation Comments Vanco Tr (test code = Vanco Tr) 11.7 [facility] CenterGjsgnvrEGVSJWBMF6212-09-70 18:10:00 Test Item Value Reference Range Interpretation Comments Vanco Tr TND (test code = Vanco Tr TND) [facility] HospitalXdgpultLIRAIFVCN9686-52-48 18:10:00 Test Item Value Reference Range Interpretation Comments Vanco Tr (test code = Vanco Tr) 11.7 [facility] CenterGyijbimMBRJVECAF0373-57-57 18:10:00 Test Item Value Reference Range Interpretation Comments Vanco Tr TND (test code = Vanco Tr TND) [facility] KIGBPJA0683-31-22 18:07:00 Test Item Value Reference Range Interpretation Comments RBC product (test code Product available N = RBC product) (02/23/2013 13:07:00) [facility] [id number] 18:07:00 Test Item Value Reference Range Interpretation Comments RBC product (test code Product available N = RBC product) (02/23/2013 13:07:00) [facility] DZZJYYE6518-78-67 18:07:00 Test Item Value Reference Range Interpretation Comments RBC product (test code Product available N = RBC product) (02/23/2013 13:07:00) [facility] [id number] 18:07:00 Test Item Value Reference Range Interpretation Comments RBC product (test code Product available N = RBC product) (02/23/2013 13:07:00) [facility] LeaderzOOD BANK [id number] 18:07:00 Test Item Value Reference Range Interpretation Comments RBC product (test code Product available N = RBC product) (02/23/2013 13:07:00) [facility] In[employer] BANK UBFMNSW5451-11-29 18:07:00 Test Item Value Reference Range Interpretation Comments RBC product (test code Product available N = RBC product) (02/23/2013 13:07:00) [facility] ScpvbpmOUKVBVEMU4486-73-12 10:45:19 Test Item Value Reference Range Interpretation Comments CK MB (test code = CK MB) 12.5 0.5-3.6 H [facility] ArlingtonHrgxufrKIZNKZYJM5076-77-30 10:45:19 Test Item Value Reference Range Interpretation Comments CK MB (test code = CK MB) 12.5 0.5-3.6 H [facility] ArlingtonOsdleugEPVNJEASS8039-04-42 10:45:19 Test Item Value Reference Range Interpretation Comments CK MB (test code = CK MB) 12.5 0.5-3.6 H [facility] ArlingtonCxuhndnCKHTVGFKO9722-72-86 10:45:19 Test Item Value Reference Range Interpretation Comments CK MB (test code = CK MB) 12.5 0.5-3.6 H [facility] ArlingtonVflqbxxCHLWEZXFO8683-95-33 10:45:19 Test Item Value Reference Range Interpretation Comments CK MB (test code = CK MB) 12.5 0.5-3.6 H [facility] ArlingtonXsojatkFNJHJLUKM8921-41-74 10:45:19 Test Item Value Reference Range Interpretation Comments CK MB (test code = CK MB) 12.5 0.5-3.6 H [facility] ArlingtonJsspafeHGNITNMWH5973-62-02 10:45:00 Test Item Value Reference Range Interpretation Comments Troponin-I (test code 1.34 See_Comment A [Auto mated message] The = Troponin-I) system which g enerated this result transmit matteo reference range : <=0.40. The reference r katie was not used to interpr et this result as miesha l/abnormal. [facility] ArlingtonNswkbuaZROMXVESV4896-57-29 10:45:00 Test Item Value Reference Range Interpretation Comments Total CK (test code = Total CK) 1727 05-191 H [facility] CenterRrdyyxjOWWENTKNM2790-53-98 10:45:00 Test Item Value Reference Range Interpretation Comments CK MB Index (test 0.7 See_Comment N [Automate d message] The code = CK MB Index) system w [employer] generated this result transmit matteo reference range : <=2.5. The reference range was not used to interpr et this result as miesha l/abnormal. [facility] CenterBbzjqjuOEXUQVHKI0119-94-27 10:45:00 Test Item Value Reference Range Interpretation Comments Troponin-I (test code 1.34 See_Comment A [Auto mated message] The = Troponin-I) system which g enerated this result transmit matteo reference range : <=0.40. The reference r katie was not used to interpr et this result as miesha l/abnormal. [facility] CenterWevkvlkHHWNABRHA0836-67-98 10:45:00 Test Item Value Reference Range Interpretation Comments Total CK (test code = Total CK) 1726 H [facility] CenterGmhrpzwYJHVEZMOA6723-37-08 10:45:00 Test Item Value Reference Range Interpretation Comments CK MB Index (test 0.7 See_Comment N [Automate d message] The code = CK MB Index) system w [employer] generated this result transmit matteo reference range : <=2.5. The reference range was not used to interpr et this result as miesha l/abnormal. [facility] CenterWkefjzgPBERXBBTX9070-69-19 10:45:00 Test Item Value Reference Range Interpretation Comments Troponin-I (test code 1.34 See_Comment A [Auto mated message] The = Troponin-I) system which g enerated this result transmit matteo reference range : <=0.40. The reference r katie was not used to interpr et this result as miesha l/abnormal. [facility] CenterVcakmvvDIMAYVJXW4995-84-36 10:45:00 Test Item Value Reference Range Interpretation Comments Total CK (test code = Total CK) 1727 05-191 H [facility] CenterAahfcmgQOVRZHBZH3884-30-02 10:45:00 Test Item Value Reference Range Interpretation Comments CK MB Index (test 0.7 See_Comment N [Automate d message] The code = CK MB Index) system w [employer] generated this result transmit matteo reference range : <=2.5. The reference range was not used to interpr et this result as miesha l/abnormal. [facility] CenterIcbowxxTRJEHEITF9410-91-47 10:45:00 Test Item Value Reference Range Interpretation Comments Troponin-I (test code 1.34 See_Comment A [Auto mated message] The = Troponin-I) system which g enerated this result transmit matteo reference range : <=0.40. The reference r katie was not used to interpr et this result as miesha l/abnormal. [facility] CenterIaholsqSKWTAWKPR4471-05-01 10:45:00 Test Item Value Reference Range Interpretation Comments Total CK (test code = Total CK) 1726 12-191 H [facility] CenterQfqttorXMUVUXNGI0903-84-79 10:45:00 Test Item Value Reference Range Interpretation Comments CK MB Index (test 0.7 See_Comment N [Automate d message] The code = CK MB Index) system w [facility] generated this result transmit matteo reference range : <=2.5. The reference range was not used to interpr et this result as miesha l/abnormal. [facility] CenterMkpqrhxFDLNTBNEV4851-86-19 10:45:00 Test Item Value Reference Range Interpretation Comments Troponin-I (test code 1.34 See_Comment A [Auto mated message] The = Troponin-I) system which g enerated this result transmit matteo reference range : <=0.40. The reference r katie was not used to interpr et this result as miesha l/abnormal. [facility] CenterWqrfthtSOOGCLTKB0371-88-26 10:45:00 Test Item Value Reference Range Interpretation Comments Total CK (test code = Total CK) 1726 12-191 H [facility] CenterZhpdonbCBLGTRQBL1869-67-28 10:45:00 Test Item Value Reference Range Interpretation Comments CK MB Index (test 0.7 See_Comment N [Automate d message] The code = CK MB Index) system w [employer] generated this result transmit matteo reference range : <=2.5. The reference range was not used to interpr et this result as miesha l/abnormal. [facility] CenterFdkbldcEFRQPHSWU5137-38-06 10:45:00 Test Item Value Reference Range Interpretation Comments Troponin-I (test code 1.34 See_Comment A [Auto mated message] The = Troponin-I) system which g enerated this result transmit matteo reference range : <=0.40. The reference r katie was not used to interpr et this result as miesha l/abnormal. [facility] CenterMelzkxdYLFMAUIGJ2608-76-29 10:45:00 Test Item Value Reference Range Interpretation Comments Total CK (test code = Total CK) 1727 12-191 H [facility] CenterVuoculnJIJCXELVN7775-07-78 10:45:00 Test Item Value Reference Range Interpretation Comments CK MB Index (test 0.7 See_Comment N [Automate d message] The code = CK MB Index) system w [facility] generated this result transmit matteo reference range : <=2.5. The reference range was not used to interpr et this result as miesha l/abnormal. [facility] CenterLeavelwXSCAHJAZS4083-53-43 09:00:00 Test Item Value Reference Range Interpretation Comments TSH (test code = TSH) 0.581 0.360-3.740 N [facility] CenterWszckmeYVGYUPYIH4997-42-03 09:00:00 Test Item Value Reference Range Interpretation Comments Hgb A1C (test code = Hgb A1C) 5.0 N [facility] HospitalIcxnvbqNCKCOSWMQU8414-86-03 09:00:00 Test Item Value Reference Range Interpretation Comments Basophils # (test code 0.0 See_Comment N [Aut omated message] The = Basophils #) system which generated this result tra nsmitted reference range : <=0.2. The reference r katie was not used to int erpret this result as normal/abnormal . [facility] HospitalZbehsfuXRMFCCKGOF8314-53-07 09:00:00 Test Item Value Reference Range Interpretation Comments Eosinophils # (test code 0.0 See_Comment N [A utomated message] The = Eosinophils #) system whic h generated this result tra nsmitted reference range : <=0.5. The reference r katie was not used to int erpret this result as normal/abnormal . [facility] CenterPbxsctgGNHOGTORJ2290-94-54 09:00:00 Test Item Value Reference Range Interpretation Comments TSH (test code = TSH) 0.581 0.360-3.740 N [facility] CenterFtaklzlNTITAXPWG2512-60-98 09:00:00 Test Item Value Reference Range Interpretation Comments Hgb A1C (test code = Hgb A1C) 5.0 N [facility] HospitalDkwujnmDFCIYBMZIF2273-77-29 09:00:00 Test Item Value Reference Range Interpretation Comments Basophils # (test code 0.0 See_Comment N [Aut omated message] The = Basophils #) system which generated this result tra nsmitted reference range : <=0.2. The reference r katie was not used to int erpret this result as normal/abnormal . [facility] HospitalYiczyxqPCKXBCSDNT3079-77-57 09:00:00 Test Item Value Reference Range Interpretation Comments Eosinophils # (test code 0.0 See_Comment N [A utomated message] The = Eosinophils #) system [facility] [employer] generated this result tra nsmitted reference range : <=0.5. The reference r katie was not used to int erpret this result as normal/abnormal . [facility] CenterXkgxyqlMPGBOPGRO7913-02-34 09:00:00 Test Item Value Reference Range Interpretation Comments TSH (test code = TSH) 0.581 0.360-3.740 N [facility] CenterVuvelpxEUOKLWOUR5472-59-16 09:00:00 Test Item Value Reference Range Interpretation Comments Hgb A1C (test code = Hgb A1C) 5.0 N [facility] HospitalHmjaxbkBZZFZCHEGX9177-53-75 09:00:00 Test Item Value Reference Range Interpretation Comments Basophils # (test code 0.0 See_Comment N [Aut omated message] The = Basophils #) system which generated this result tra nsmitted reference range : <=0.2. The reference r katie was not used to int erpret this result as normal/abnormal . [facility] HospitalUmdzsjgAAIDUJAMHN7671-75-85 09:00:00 Test Item Value Reference Range Interpretation Comments Eosinophils # (test code 0.0 See_Comment N [A utomated message] The = Eosinophils #) system [facility] [employer] generated this result tra nsmitted reference range : <=0.5. The reference r katie was not used to int erpret this result as normal/abnormal . [facility] CenterIygmaacBQXOHSIDS2750-07-87 09:00:00 Test Item Value Reference Range Interpretation Comments TSH (test code = TSH) 0.581 0.360-3.740 N [facility] CenterApgwxysNOSUPNLND0843-48-50 09:00:00 Test Item Value Reference Range Interpretation Comments Hgb A1C (test code = Hgb A1C) 5.0 N [facility] HospitalQamrwqdZTUWJMFMCE9490-58-17 09:00:00 Test Item Value Reference Range Interpretation Comments Basophils # (test code 0.0 See_Comment N [Aut omated message] The = Basophils #) system which generated this result tra nsmitted reference range : <=0.2. The reference r katie was not used to int erpret this result as normal/abnormal . [facility] HospitalMyiikvhXWLZKZRXNY2544-11-03 09:00:00 Test Item Value Reference Range Interpretation Comments Eosinophils # (test code 0.0 See_Comment N [A utomated message] The = Eosinophils #) system [facility] [employer] generated this result tra nsmitted reference range : <=0.5. The reference r katie was not used to int erpret this result as normal/abnormal . [facility] CenterNfmzgguVSABPECKO4781-45-36 09:00:00 Test Item Value Reference Range Interpretation Comments TSH (test code = TSH) 0.581 0.360-3.740 N [facility] CenterExyyidePWTVOUBQE7601-47-31 09:00:00 Test Item Value Reference Range Interpretation Comments Hgb A1C (test code = Hgb A1C) 5.0 N [facility] HospitalPsrnuneJTTIGFEONX5391-64-20 09:00:00 Test Item Value Reference Range Interpretation Comments Basophils # (test code 0.0 See_Comment N [Aut omated message] The = Basophils #) system which generated this result tra nsmitted reference range : <=0.2. The reference r katie was not used to int erpret this result as normal/abnormal . [facility] HospitalQmjoaqaUGFEJEGTKT3413-68-46 09:00:00 Test Item Value Reference Range Interpretation Comments Eosinophils # (test code 0.0 See_Comment N [A utomated message] The = Eosinophils #) system [facility] [employer] generated this result tra nsmitted reference range : <=0.5. The reference r katie was not used to int erpret this result as normal/abnormal . [facility] CenterSdralkzTBOEQWTLU7858-34-98 09:00:00 Test Item Value Reference Range Interpretation Comments TSH (test code = TSH) 0.581 0.360-3.740 N [facility] CenterQjadhugKYIMCLHZE3857-30-07 09:00:00 Test Item Value Reference Range Interpretation Comments Hgb A1C (test code = Hgb A1C) 5.0 N [facility] HospitalNeaanulXHEBJGMAMP2845-55-21 09:00:00 Test Item Value Reference Range Interpretation Comments Basophils # (test code 0.0 See_Comment N [Aut omated message] The = Basophils #) system which generated this result tra nsmitted reference range : <=0.2. The reference r katie was not used to int erpret this result as normal/abnormal . [facility] HospitalRdqnxfhKMALIOUPXM4926-44-53 09:00:00 Test Item Value Reference Range Interpretation Comments Eosinophils # (test code 0.0 See_Comment N [A utomated message] The = Eosinophils #) system whic h generated this result tra nsmitted reference range : <=0.5. The reference r katie was not used to int erpret this result as normal/abnormal . [facility] CenterPxsxgydOUGYHCRTG0346-31-74 04:00:00 Test Item Value Reference Range Interpretation Comments Troponin-I (test code 2.07 See_Comment A [Auto mated message] The = Troponin-I) system which g enerated this result transmit matteo reference range : <=0.40. The reference r katie was not used to interpr et this result as miesha l/abnormal. [facility] CenterDvaduxoRQJEUWRVV3687-58-32 04:00:00 Test Item Value Reference Range Interpretation Comments Total CK (test code = Total CK) 2251191 H [facility] CenterTdkhzisGEMWVZMAC7490-09-99 04:00:00 Test Item Value Reference Range Interpretation Comments Total CK (test code = Total CK) 2251191 H [facility] CenterRtndfxpDWIEIDBSB4000-86-38 04:00:00 Test Item Value Reference Range Interpretation Comments CK MB Index (test 0.9 See_Comment N [Automate d message] The code = CK MB Index) system w [facility] generated this result transmit matteo reference range : <=2.5. The reference range was not used to interpr et this result as miesha l/abnormal. [facility] CenterGjouhauVPXWYWQUU5218-09-91 04:00:00 Test Item Value Reference Range Interpretation Comments CK MB (test code = CK MB) 20.3 0.5-3.6 H [facility] CenterUokcytqVVOLVGLNQ2242-03-38 04:00:00 Test Item Value Reference Range Interpretation Comments Troponin-I (test code 2.07 See_Comment A [Auto mated message] The = Troponin-I) system which g enerated this result transmit matteo reference range : <=0.40. The reference r katie was not used to interpr et this result as miesha l/abnormal. [facility] CenterKhxrwjrGGIAEQJZM3387-86-39 04:00:00 Test Item Value Reference Range Interpretation Comments Total CK (test code = Total CK) 2251 H [facility] CenterAdbfzyjSZACGCAVE1561-49-91 04:00:00 Test Item Value Reference Range Interpretation Comments Total CK (test code = Total CK) 2251 H [facility] CenterZieovxuDLCOPLFTN7569-80-24 04:00:00 Test Item Value Reference Range Interpretation Comments CK MB Index (test 0.9 See_Comment N [Automate d message] The code = CK MB Index) system w [employer] generated this result transmit matteo reference range : <=2.5. The reference range was not used to interpr et this result as miesha l/abnormal. [facility] CenterMjtafgqXWHXYVLQX4782-28-19 04:00:00 Test Item Value Reference Range Interpretation Comments CK MB (test code = CK MB) 20.3 0.5-3.6 H [facility] CenterIencowgUBDSOOJJB0869-24-23 04:00:00 Test Item Value Reference Range Interpretation Comments Troponin-I (test code 2.07 See_Comment A [Auto mated message] The = Troponin-I) system which g enerated this result transmit matteo reference range : <=0.40. The reference r katie was not used to interpr et this result as miesha l/abnormal. [facility] CenterWikezxpFATOFRDXH9904-10-96 04:00:00 Test Item Value Reference Range Interpretation Comments Total CK (test code = Total CK) 2251 H [facility] CenterGftyebmYATIXBOVY6850-55-84 04:00:00 Test Item Value Reference Range Interpretation Comments Total CK (test code = Total CK) 2251 H [facility] CenterVfjdptgXEQFBNSOV9214-47-41 04:00:00 Test Item Value Reference Range Interpretation Comments CK MB Index (test 0.9 See_Comment N [Automate d message] The code = CK MB Index) system w [employer] generated this result transmit matteo reference range : <=2.5. The reference range was not used to interpr et this result as miesha l/abnormal. [facility] CenterFjqztauFIVPWFFZX1019-55-88 04:00:00 Test Item Value Reference Range Interpretation Comments CK MB (test code = CK MB) 20.3 0.5-3.6 H [facility] CenterCyebqhpBUELLEDYL9682-61-94 04:00:00 Test Item Value Reference Range Interpretation Comments Troponin-I (test code 2.07 See_Comment A [Auto mated message] The = Troponin-I) system which g enerated this result transmit matteo reference range : <=0.40. The reference r katie was not used to interpr et this result as miesha l/abnormal. [facility] CenterOhhiiztWNBIQILYT5268-45-35 04:00:00 Test Item Value Reference Range Interpretation Comments Total CK (test code = Total CK) 2251 H [facility] CenterFsnqyqvCYYXHLKFV3981-21-30 04:00:00 Test Item Value Reference Range Interpretation Comments Total CK (test code = Total CK) 2251 H [facility] CenterMxmgqhcVQQLYIDBO4879-88-92 04:00:00 Test Item Value Reference Range Interpretation Comments CK MB Index (test 0.9 See_Comment N [Automate d message] The code = CK MB Index) system w [facility] generated this result transmit matteo reference range : <=2.5. The reference range was not used to interpr et this result as miesha l/abnormal. [facility] CenterGxljlpxWHWYIEFYH9185-94-31 04:00:00 Test Item Value Reference Range Interpretation Comments CK MB (test code = CK MB) 20.3 0.5-3.6 H [facility] CenterVlcqmvlXLWHHBONP2015-34-30 04:00:00 Test Item Value Reference Range Interpretation Comments Troponin-I (test code 2.07 See_Comment A [Auto mated message] The = Troponin-I) system which g enerated this result transmit matteo reference range : <=0.40. The reference r katie was not used to interpr et this result as miesha l/abnormal. [facility]XosvxphPAXKCUBPV6302-65-50 04:00:00 Test Item Value Reference Range Interpretation Comments Total CK (test code = Total CK) 2251 H [facility] CenterOtuaafrPCKIRZVMJ3629-99-57 04:00:00 Test Item Value Reference Range Interpretation Comments Total CK (test code = Total CK) 2251 H [facility] CenterLfmvxciQSAPPRJNB9815-34-36 04:00:00 Test Item Value Reference Range Interpretation Comments CK MB Index (test 0.9 See_Comment N [Automate d message] The code = CK MB Index) system w [employer] generated this result transmit matteo reference range : <=2.5. The reference range was not used to interpr et this result as miesha l/abnormal. [facility] CenterDosiwmbJHIFFBBYO4556-94-49 04:00:00 Test Item Value Reference Range Interpretation Comments CK MB (test code = CK MB) 20.3 0.5-3.6 H [facility] CenterXzhzoerXJEVYIOCA5084-70-44 04:00:00 Test Item Value Reference Range Interpretation Comments Troponin-I (test code 2.07 See_Comment A [Auto mated message] The = Troponin-I) system which g enerated this result transmit matteo reference range : <=0.40. The reference r katie was not used to interpr et this result as miesha l/abnormal. [facility] CenterQhynlioJBZPIXKRB3195-77-91 04:00:00 Test Item Value Reference Range Interpretation Comments Total CK (test code = Total CK) 2 12-191 H [facility] CenterEqsqazaWBKNRYUDY2211-45-01 04:00:00 Test Item Value Reference Range Interpretation Comments Total CK (test code = Total CK) 2 12-191 H [facility] CenterWsommkhBSCBDTXWV2184-01-12 04:00:00 Test Item Value Reference Range Interpretation Comments CK MB Index (test 0.9 See_Comment N [Automate d message] The code = CK MB Index) system w [employer] generated this result transmit matteo reference range : <=2.5. The reference range was not used to interpr et this result as miesha l/abnormal. [facility] CenterMatqxpwNXXONNEDW3701-32-31 04:00:00 Test Item Value Reference Range Interpretation Comments CK MB (test code = CK MB) 20.3 0.5-3.6 H [place] [facility]ic[facility]pmIwizkmzpzrjw9541-49-18 18:55:35 Test Item Value Reference Range Interpretation Comments Culture: Respiratory w/Gram Stain (test code = Culture: Respiratory w/Gram Stain) [facility]JuanyjeBdpjikqnbino5737-14-90 18:55:35 Test Item Value Reference Range Interpretation Comments Culture: Respiratory w/Gram Stain (test code = Culture: Respiratory w/Gram Stain) [facility] HospitalHrjccazYwvnukyeyjsc8086-74-21 18:55:35 Test Item Value Reference Range Interpretation Comments Culture: Respiratory w/Gram Stain (test code = Culture: Respiratory w/Gram Stain) [facility] HospitalKkdmojpKznhaxnbemzw9484-55-92 18:55:35 Test Item Value Reference Range Interpretation Comments Culture: Respiratory w/Gram Stain (test code = Culture: Respiratory w/Gram Stain) [facility] HospitalVzzhhilObxnubcqtvsb8554-89-47 18:55:35 Test Item Value Reference Range Interpretation Comments Culture: Respiratory w/Gram Stain (test code = Culture: Respiratory w/Gram Stain) [facility] HospitalYevyiefLrmsnuelpmlx4753-09-52 18:55:35 Test Item Value Reference Range Interpretation Comments Culture: Respiratory w/Gram Stain (test code = Culture: Respiratory w/Gram Stain) [facility] HospitalQuvzgarUitnazppqnyx0323-38-15 18:15:35 Test Item Value Reference Range Interpretation Comments Culture: Blood (test code = Culture: Blood) [facility] HospitalZjnwyufJwdwivtvlnxe2258-32-53 18:15:35 Test Item Value Reference Range Interpretation Comments Culture: Blood (test code = Culture: Blood) [facility] HospitalFjtraboMpadxvgjdopu5293-69-74 18:15:35 Test Item Value Reference Range Interpretation Comments Culture: Blood (test code = Culture: Blood) [facility] HospitalWftpnlrCmprygweuxhy4646-55-82 18:15:35 Test Item Value Reference Range Interpretation Comments Culture: Blood (test code = Culture: Blood) [facility] HospitalOujdanrQknpgbmzznks7125-50-48 18:15:35 Test Item Value Reference Range Interpretation Comments Culture: Blood (test code = Culture: Blood) [facility] HospitalXdmmairBjzshgenmrqh3598-30-77 18:15:35 Test Item Value Reference Range Interpretation Comments Culture: Blood (test code = Culture: Blood) [facility] HospitalJsjfihdLevrqqfyejib4974-74-33 18:05:30 Test Item Value Reference Range Interpretation Comments Culture: Blood (test code = Culture: Blood) [facility] HospitalPcvrcdnHabcxyxyowxu3247-42-57 18:05:30 Test Item Value Reference Range Interpretation Comments Culture: Blood (test code = Culture: Blood) [facility] HospitalWibucmjOiznneglftbf9125-91-90 18:05:30 Test Item Value Reference Range Interpretation Comments Culture: Blood (test code = Culture: Blood) [facility] HospitalOciksmxKxfkulzjoigv3378-93-16 18:05:30 Test Item Value Reference Range Interpretation Comments Culture: Blood (test code = Culture: Blood) [facility] HospitalXknbosmMxzcrjxqzxix3119-27-41 18:05:30 Test Item Value Reference Range Interpretation Comments Culture: Blood (test code = Culture: Blood) [facility] HospitalFyrpubkOmirgpagdpfy3202-75-54 18:05:30 Test Item Value Reference Range Interpretation Comments Culture: Blood (test code = Culture: Blood) [facility] HospitalQctwhsfSnshmnswrbrr1564-93-81 17:25:47 Test Item Value Reference Range Interpretation Comments Culture: Urine (test code = Culture: Urine) [facility] HospitalVjvhivmTthmjibkrjqt5064-89-28 17:25:47 Test Item Value Reference Range Interpretation Comments Culture: Urine (test code = Culture: Urine) [facility] HospitalCrogiewQydbwvnrixmv0543-47-15 17:25:47 Test Item Value Reference Range Interpretation Comments Culture: Urine (test code = Culture: Urine) [facility] HospitalLslmvmzBlqieqegydwj6193-22-84 17:25:47 Test Item Value Reference Range Interpretation Comments Culture: Urine (test code = Culture: Urine) [facility] HospitalBlerickWnzkpqwflnea3740-07-42 17:25:47 Test Item Value Reference Range Interpretation Comments Culture: Urine (test code = Culture: Urine) [facility] HospitalErzvatlBuwysyvcxmuv7489-21-45 17:25:47 Test Item Value Reference Range Interpretation Comments Culture: Urine (test code = Culture: Urine) [facility]EduumoiNSDETMNAI0322-[facility]-49 07:00:00 Test Item Value Reference Range Interpretation Comments Magnesium Lvl (test code = Magnesium 1.6 1.8-2.4 L Lvl) [facility] CenterOgoxiuxMFSHSLGFG Test Item Value Reference Range Interpretation Comments ALT (test code = ALT) 23 See_Comment N [Auto mated message] The system which ge nerated this result transmit matteo reference range : <=65. The reference range was not used to interpr et this result as miesha l/abnormal. [facility] CenterOezmbplWTSLFVWJB4669-67-53 07:00:00 Test Item Value Reference Range Interpretation Comments Alk Phos (test code = Alk Phos) 45 39-136 N [facility] CenterIxtzgkrHMZRFUQKB0850-83-97 07:00:00 Test Item Value Reference Range Interpretation Comments Albumin Lvl (test code = Albumin Lvl) 3.4 3.5-5.0 L [facility] CenterCfgighnQZFTHSDPG0397-27-22 07:00:00 Test Item Value Reference Range Interpretation Comments B/C Ratio (test code = B/C Ratio) 10 6-25 N [facility] CenterYkvkqpgOEFEWEPVF6756-19-76 07:00:00 Test Item Value Reference Range Interpretation Comments Total Protein (test code = Total 5.9 6.4-8.4 L Protein) [facility] CenterThrlrkxQTBHBTDJQ9506-88-96 07:00:00 Test Item Value Reference Range Interpretation Comments Globulin (test code = Globulin) 2.5 2.0-4.0 N [facility] CenterCeoqabtEPFVICVKF9591-00-67 07:00:00 Test Item Value Reference Range Interpretation Comments Bili Total (test code = Bili Total) 0.7 0.2-1.3 N [facility] CenterRhdxlhqGFCXPDBZB5786-29-38 07:00:00 Test Item Value Reference Range Interpretation Comments A/G Ratio (test code = A/G Ratio) 1.4 0.7-1.6 N [facility] CenterEzcndxaHWQCJYWEH8803-18-94 07:00:00 Test Item Value Reference Range Interpretation Comments AST (test code = AST) 62 See_Comment H [Auto mated message] The system which ge nerated this result transmit matteo reference range : <=37. The reference range was not used to interpr et this result as miesha l/abnormal. [facility] HospitalHteffvfLOZLQZCOIK6042-74-56 07:00:00 Test Item Value Reference Range Interpretation Comments Polychrom (test code = Slight (02/22/2013 N Polychrom) 02:00:00) [facility] HospitalHglkpqrGZROURTPNA4624-16-02 07:00:00 Test Item Value Reference Range Interpretation Comments Plt Morph (test code = Normal (02/22/2013 N Plt Morph) 02:00:00) [facility] CenterAawcrwpLDHKFAAAO7059-63-40 07:00:00 Test Item Value Reference Range Interpretation Comments Magnesium Lvl (test code = Magnesium 1.6 1.8-2.4 L Lvl) [facility] CenterEscikyuMUMJQKLDR1523-44-20 07:00:00 Test Item Value Reference Range Interpretation Comments ALT (test code = ALT) 23 See_Comment N [Auto mated message] The system which ge nerated this result transmit matteo reference range : <=65. The reference range was not used to interpr et this result as miesha l/abnormal. [facility] CenterXtrnegfVHRYWXHXE5991-12-86 07:00:00 Test Item Value Reference Range Interpretation Comments Alk Phos (test code = Alk Phos) 45 39-136 N [facility] CenterPiswizzSOUVLVFDH8273-48-05 07:00:00 Test Item Value Reference Range Interpretation Comments Albumin Lvl (test code = Albumin Lvl) 3.4 3.5-5.0 L [facility] CenterLhotfvaVLIVABUII3171-45-52 07:00:00 Test Item Value Reference Range Interpretation Comments B/C Ratio (test code = B/C Ratio) 10 6-25 N [facility] CenterWsqwacaZUGNFMRWR7322-68-99 07:00:00 Test Item Value Reference Range Interpretation Comments Total Protein (test code = Total 5.9 6.4-8.4 L Protein) [facility] CenterUpivuzoWSQNWDPWM8374-18-28 07:00:00 Test Item Value Reference Range Interpretation Comments Globulin (test code = Globulin) 2.5 2.0-4.0 N [facility] CenterBvopasfYBDLBTKJY9635-49-30 07:00:00 Test Item Value Reference Range Interpretation Comments Bili Total (test code = Bili Total) 0.7 0.2-1.3 N [facility] CenterBlpkhbgGEJLCMBOX1631-67-77 07:00:00 Test Item Value Reference Range Interpretation Comments A/G Ratio (test code = A/G Ratio) 1.4 0.7-1.6 N [facility] CenterArwknjuWWIRRLNZY2186-29-87 07:00:00 Test Item Value Reference Range Interpretation Comments AST (test code = AST) 62 See_Comment H [Auto mated message] The system which ge nerated this result transmit matteo reference range : <=37. The reference range was not used to interpr et this result as miesha l/abnormal. [facility] HospitalKzigmuzCCCVREOOID2988-88-15 07:00:00 Test Item Value Reference Range Interpretation Comments Polychrom (test code = Slight (02/22/2013 N Polychrom) 02:00:00) [facility] HospitalUoanzhpWRNWTVPIOM6316-28-82 07:00:00 Test Item Value Reference Range Interpretation Comments Plt Morph (test code = Normal (02/22/2013 N Plt Morph) 02:00:00) [facility] CenterSzeplupSUPDTYEXS7990-10-69 07:00:00 Test Item Value Reference Range Interpretation Comments Magnesium Lvl (test code = Magnesium 1.6 1.8-2.4 L Lvl) [facility] CenterXbxnsieTTXHHWQKU6823-68-22 07:00:00 Test Item Value Reference Range Interpretation Comments ALT (test code = ALT) 23 See_Comment N [Auto mated message] The system which ge nerated this result transmit matteo reference range : <=65. The reference range was not used to interpr et this result as miesha l/abnormal. [facility] CenterZsnaamqBMKLBPAGH0798-33-90 07:00:00 Test Item Value Reference Range Interpretation Comments Alk Phos (test code = Alk Phos) 45 39-136 N [facility] CenterWvdcspiWHOSMQQUY1245-38-63 07:00:00 Test Item Value Reference Range Interpretation Comments Albumin Lvl (test code = Albumin Lvl) 3.4 3.5-5.0 L [facility] CenterScrhmsvJZOVGKOQF6400-94-59 07:00:00 Test Item Value Reference Range Interpretation Comments B/C Ratio (test code = B/C Ratio) 10 6-25 N [facility] CenterXdncpjiFGUDZSHXV6074-26-60 07:00:00 Test Item Value Reference Range Interpretation Comments Total Protein (test code = Total 5.9 6.4-8.4 L Protein) [facility] CenterNldbfprUZNORMMJQ2091-68-58 07:00:00 Test Item Value Reference Range Interpretation Comments Globulin (test code = Globulin) 2.5 2.0-4.0 N [facility] CenterOzujjwdHSMUQQXON0169-51-17 07:00:00 Test Item Value Reference Range Interpretation Comments Bili Total (test code = Bili Total) 0.7 0.2-1.3 N [facility] CenterWjpbavtASXEZZNWT8478-89-72 07:00:00 Test Item Value Reference Range Interpretation Comments A/G Ratio (test code = A/G Ratio) 1.4 0.7-1.6 N [facility] CenterQfuhtrxNPAFVLVCE1770-41-00 07:00:00 Test Item Value Reference Range Interpretation Comments AST (test code = AST) 62 See_Comment H [Auto mated message] The system which ge nerated this result transmit matteo reference range : <=37. The reference range was not used to interpr et this result as miesha l/abnormal. [facility] HospitalUimpigtMMROXXTAQA8153-50-07 07:00:00 Test Item Value Reference Range Interpretation Comments Polychrom (test code = Slight (02/22/2013 N Polychrom) 02:00:00) [facility] HospitalTnsgixvBZLSNECBTK0267-71-68 07:00:00 Test Item Value Reference Range Interpretation Comments Plt Morph (test code = Normal (02/22/2013 N Plt Morph) 02:00:00) [facility] CenterRffgcxwLRNHOEBRC4864-09-42 07:00:00 Test Item Value Reference Range Interpretation Comments Magnesium Lvl (test code = Magnesium 1.6 1.8-2.4 L Lvl) [facility] CenterFhawvyoMCQPXBQOA7692-22-52 07:00:00 Test Item Value Reference Range Interpretation Comments ALT (test code = ALT) 23 See_Comment N [Auto mated message] The system which ge nerated this result transmit matteo reference range : <=65. The reference range was not used to interpr et this result as miesha l/abnormal. [facility] CenterMigbhioRRBBECSZW2332-00-40 07:00:00 Test Item Value Reference Range Interpretation Comments Alk Phos (test code = Alk Phos) 45 39-136 N [facility] CenterVzfchdqGEAKASXGT4767-06-85 07:00:00 Test Item Value Reference Range Interpretation Comments Albumin Lvl (test code = Albumin Lvl) 3.4 3.5-5.0 L [facility] CenterFqlmgdhGFGZYVEQK5639-02-59 07:00:00 Test Item Value Reference Range Interpretation Comments B/C Ratio (test code = B/C Ratio) 10 6-25 N [facility] CenterMemgvkpCVQRELARU9817-15-36 07:00:00 Test Item Value Reference Range Interpretation Comments Total Protein (test code = Total 5.9 6.4-8.4 L Protein) [facility] CenterYqcdbjnLSSPVLRCJ1440-07-61 07:00:00 Test Item Value Reference Range Interpretation Comments Globulin (test code = Globulin) 2.5 2.0-4.0 N [facility] CenterLvydqxmLKGIVKUXC2094-64-49 07:00:00 Test Item Value Reference Range Interpretation Comments Bili Total (test code = Bili Total) 0.7 0.2-1.3 N [facility] CenterIycojwmWGLFBVBBV4152-17-94 07:00:00 Test Item Value Reference Range Interpretation Comments A/G Ratio (test code = A/G Ratio) 1.4 0.7-1.6 N [facility] CenterMfiwcdbJBUSUGXBV5048-17-09 07:00:00 Test Item Value Reference Range Interpretation Comments AST (test code = AST) 62 See_Comment H [Auto mated message] The system which ge nerated this result transmit matteo reference range : <=37. The reference range was not used to interpr et this result as miesha l/abnormal. [facility] HospitalIxkqdmjFEOUCOUEGH9102-69-61 07:00:00 Test Item Value Reference Range Interpretation Comments Polychrom (test code = Slight (02/22/2013 N Polychrom) 02:00:00) [facility] HospitalHkmeqygLVFIPSPGQC4351-49-02 07:00:00 Test Item Value Reference Range Interpretation Comments Plt Morph (test code = Normal (02/22/2013 N Plt Morph) 02:00:00) [facility] CenterVagzdgqTECSQCITZ5355-71-06 07:00:00 Test Item Value Reference Range Interpretation Comments Magnesium Lvl (test code = Magnesium 1.6 1.8-2.4 L Lvl) [facility] CenterWitojpjGKNFCFQDN7549-47-11 07:00:00 Test Item Value Reference Range Interpretation Comments ALT (test code = ALT) 23 See_Comment N [Auto mated message] The system which ge nerated this result transmit matteo reference range : <=65. The reference range was not used to interpr et this result as miesha l/abnormal. [facility] CenterGqphxtuMYPBMOUGL5143-01-57 07:00:00 Test Item Value Reference Range Interpretation Comments Alk Phos (test code = Alk Phos) 45 39-136 N [facility] CenterVbicfpjEXFBCVXIU5682-35-65 07:00:00 Test Item Value Reference Range Interpretation Comments Albumin Lvl (test code = Albumin Lvl) 3.4 3.5-5.0 L [facility] CenterDiydmicVDMXPAKWH3730-87-25 07:00:00 Test Item Value Reference Range Interpretation Comments B/C Ratio (test code = B/C Ratio) 10 6-25 N [facility] CenterPxrkixqAYAWWJYRJ3505-71-13 07:00:00 Test Item Value Reference Range Interpretation Comments Total Protein (test code = Total 5.9 6.4-8.4 L Protein) [facility] CenterJlhprvqBXLMHSBJL4585-04-22 07:00:00 Test Item Value Reference Range Interpretation Comments Globulin (test code = Globulin) 2.5 2.0-4.0 N [facility] CenterSnzcuidQLFWPLEUR3183-84-25 07:00:00 Test Item Value Reference Range Interpretation Comments Bili Total (test code = Bili Total) 0.7 0.2-1.3 N [facility] CenterMeshgmeYAVYTQCDQ6593-40-45 07:00:00 Test Item Value Reference Range Interpretation Comments A/G Ratio (test code = A/G Ratio) 1.4 0.7-1.6 N [facility] CenterZgbljeuEZOWHUOBT1855-11-23 07:00:00 Test Item Value Reference Range Interpretation Comments AST (test code = AST) 62 See_Comment H [Auto mated message] The system which ge nerated this result transmit matteo reference range : <=37. The reference range was not used to interpr et this result as miesha l/abnormal. [facility] HospitalGyoylxlSTKYIGLEKU3587-47-03 07:00:00 Test Item Value Reference Range Interpretation Comments Polychrom (test code = Slight (02/22/2013 N Polychrom) 02:00:00) [facility] HospitalItvqlpcSJSXAMFCUS0972-86-08 07:00:00 Test Item Value Reference Range Interpretation Comments Plt Morph (test code = Normal (02/22/2013 N Plt Morph) 02:00:00) [facility] CenterChkcgncJNLDHATNX7582-45-08 07:00:00 Test Item Value Reference Range Interpretation Comments Magnesium Lvl (test code = Magnesium 1.6 1.8-2.4 L Lvl) [facility] CenterLgmvmiqJXNBPCTUI5535-37-50 07:00:00 Test Item Value Reference Range Interpretation Comments ALT (test code = ALT) 23 See_Comment N [Auto mated message] The system which ge nerated this result transmit matteo reference range : <=65. The reference range was not used to interpr et this result as miesha l/abnormal. [facility]GjaunpaHOYLULTPE0104-78-06 07:00:00 Test Item Value Reference Range Interpretation Comments Alk Phos (test code = Alk Phos) 45 39-136 N [facility] ArlingtonJlomuzlHVOXAISZP0206-06-39 07:00:00 Test Item Value Reference Range Interpretation Comments Albumin Lvl (test code = Albumin Lvl) 3.4 3.5-5.0 L [facility] CenterTcvqbuwXNIDRLJSG1599-11-86 07:00:00 Test Item Value Reference Range Interpretation Comments B/C Ratio (test code = B/C Ratio) 10 6-25 N [facility] ArlingtonWidlznvZRVRXFKEA4394-02-27 07:00:00 Test Item Value Reference Range Interpretation Comments Total Protein (test code = Total 5.9 6.4-8.4 L Protein) [facility] CenterTatefwyDLWROXDPC9509-21-84 07:00:00 Test Item Value Reference Range Interpretation Comments Globulin (test code = Globulin) 2.5 2.0-4.0 N [facility] CenterTurwbwdKTXNVFPHU6033-52-87 07:00:00 Test Item Value Reference Range Interpretation Comments Bili Total (test code = Bili Total) 0.7 0.2-1.3 N [facility] CenterIoorerlWRJFZCIHR7092-70-13 07:00:00 Test Item Value Reference Range Interpretation Comments A/G Ratio (test code = A/G Ratio) 1.4 0.7-1.6 N [facility] CenterMzqktkzHNTLUJTES4417-88-97 07:00:00 Test Item Value Reference Range Interpretation Comments AST (test code = AST) 62 See_Comment H [Auto mated message] The system which ge nerated this result transmit matteo reference range : <=37. The reference range was not used to interpr et this result as miesha l/abnormal. [facility] HospitalTecndplAGHOGRANQJ2599-67-87 07:00:00 Test Item Value Reference Range Interpretation Comments Polychrom (test code = Slight (02/22/2013 N Polychrom) 02:00:00) [facility] HospitalWxusdkyYFWDOCZBVN8083-36-69 07:00:00 Test Item Value Reference Range Interpretation Comments Plt Morph (test code = Normal (02/22/2013 N Plt Morph) 02:00:00) [facility] CenterPrlmuwvLWHPERLSO2128-94-43 00:49:09 Test Item Value Reference Range Interpretation Comments [employer] (test code = N/A (02/21/2013 N [employer]) 19:49:09) [facility] CenterXwfyxkxOQCXTBWBT7033-60-21 00:49:09 Test Item Value Reference Range Interpretation Comments [employer] (test code = N/A (02/21/2013 N [employer]) 19:49:09) [facility] CenterLxqdxktKMCYWYVSG6733-61-65 00:49:09 Test Item Value Reference Range Interpretation Comments [employer] (test code = N/A (02/21/2013 N [employer]) 19:49:09) [facility] CenterQmklhpwNLTXTOSNS6030-83-09 00:49:09 Test Item Value Reference Range Interpretation Comments [employer] (test code = N/A (02/21/2013 N [employer]) 19:49:09) [facility] CenterVwufyieQWKMDBQHM2200-19-31 00:49:09 Test Item Value Reference Range Interpretation Comments [employer] (test code = N/A (02/21/2013 N [employer]) 19:49:09) [facility] CenterOiqlmbhZISHQKQCT7176-10-15 00:49:09 Test Item Value Reference Range Interpretation Comments [employer] (test code = N/A (02/21/2013 N [employer]) 19:49:09) [facility] HospitalJftnhflIDWDKPYQZY2731-42-48 22:20:00 Test Item Value Reference Range Interpretation Comments Fibrinogen Lvl (test code = Fibrinogen 241 230-510 N Lvl) [facility] HospitalXxdydbxCLSNSFRHDC1536-11-60 22:20:00 Test Item Value Reference Range Interpretation Comments INR (test code = INR) 1.10 0.85-1.17 N [facility] HospitalUpbrlslZNNPHWXRXX9750-79-41 22:20:00 Test Item Value Reference Range Interpretation Comments PT (test code = PT) 14.1 s 12.0-14.7 N [facility] HospitalAalgxkvVOXPZQNDIJ7888-79-20 22:20:00 Test Item Value Reference Range Interpretation Comments PTT (test code = PTT) 31.5 s 22.9-35.8 N [facility] HospitalNahbhqfTRRYOGHAUG4463-23-10 22:20:00 Test Item Value Reference Range Interpretation Comments Fibrinogen Lvl (test code = Fibrinogen 241 230-510 N Lvl) [facility] HospitalPnqnbmlADLXIOELFH9719-13-72 22:20:00 Test Item Value Reference Range Interpretation Comments INR (test code = INR) 1.10 0.85-1.17 N [facility] HospitalTsyiezfQKWARXYSRV0504-35-37 22:20:00 Test Item Value Reference Range Interpretation Comments PT (test code = PT) 14.1 s 12.0-14.7 N [facility] HospitalXbfmwlvWGSPKPXBBC5841-12-33 22:20:00 Test Item Value Reference Range Interpretation Comments PTT (test code = PTT) 31.5 s 22.9-35.8 N [facility] HospitalUznadhlETTTEMVBCL3016-87-92 22:20:00 Test Item Value Reference Range Interpretation Comments Fibrinogen Lvl (test code = Fibrinogen 241 230-510 N Lvl) [facility] HospitalZjynmeeLUMILLIRDK6873-75-61 22:20:00 Test Item Value Reference Range Interpretation Comments INR (test code = INR) 1.10 0.85-1.17 N [facility] HospitalBphoyjzOLWZLQTNST0930-40-48 22:20:00 Test Item Value Reference Range Interpretation Comments PT (test code = PT) 14.1 s 12.0-14.7 N [facility] HospitalRjipltwWDZWCQPPKK0353-76-88 22:20:00 Test Item Value Reference Range Interpretation Comments PTT (test code = PTT) 31.5 s 22.9-35.8 N [facility] HospitalZwzpumpATBHMHLXBY4164-74-24 22:20:00 Test Item Value Reference Range Interpretation Comments Fibrinogen Lvl (test code = Fibrinogen 241 230-510 N Lvl) [facility] HospitalNbvxmlpPYDMHOLDVP0421-83-44 22:20:00 Test Item Value Reference Range Interpretation Comments INR (test code = INR) 1.10 0.85-1.17 N [facility] HospitalFhsclsrTQHUUYBLOV2246-80-30 22:20:00 Test Item Value Reference Range Interpretation Comments PT (test code = PT) 14.1 s 12.0-14.7 N [facility] HospitalQafbvxvNNGMMBIWSK3773-12-92 22:20:00 Test Item Value Reference Range Interpretation Comments PTT (test code = PTT) 31.5 s 22.9-35.8 N [facility] HospitalSaljvppXOIZIVUFRX9975-37-34 22:20:00 Test Item Value Reference Range Interpretation Comments Fibrinogen Lvl (test code = Fibrinogen 241 230-510 N Lvl) [facility] HospitalRlefktnYPOPHPBSEP1599-87-03 22:20:00 Test Item Value Reference Range Interpretation Comments INR (test code = INR) 1.10 0.85-1.17 N [facility] HospitalEzfpegtBDSYZJXKWB2357-70-13 22:20:00 Test Item Value Reference Range Interpretation Comments PT (test code = PT) 14.1 s 12.0-14.7 N [facility] HospitalKdtkltwYOMULSSXPF2693-63-29 22:20:00 Test Item Value Reference Range Interpretation Comments PTT (test code = PTT) 31.5 s 22.9-35.8 N [facility] HospitalOpjlzbiWEGTUJQAPZ1121-67-95 22:20:00 Test Item Value Reference Range Interpretation Comments Fibrinogen Lvl (test code = Fibrinogen 241 230-510 N Lvl) [facility] HospitalUnvudlqRMZONHRWTJ0796-13-86 22:20:00 Test Item Value Reference Range Interpretation Comments INR (test code = INR) 1.10 0.85-1.17 N [facility] HospitalDsvemmkYRFDBFKLAB9044-55-26 22:20:00 Test Item Value Reference Range Interpretation Comments PT (test code = PT) 14.1 s 12.0-14.7 N [facility] HospitalCqkiizmLHLGDFEGUH3918-61-18 22:20:00 Test Item Value Reference Range Interpretation Comments PTT (test code = PTT) 31.5 s 22.9-35.8 N [facility] CenterUaofrcyGVSUUMUHW7781-47-04 21:41:00 Test Item Value Reference Range Interpretation Comments POC A Glu (test code = POC A Glu) 169 70-99 H [facility] CenterGmvquhySKUHOUXOZ0467-96-87 21:41:00 Test Item Value Reference Range Interpretation Comments POC A Ca Ion (test code = POC A Ca Ion) 1.48 1.05-1.25 H [facility] CenterExolwvyVLWIEXZOC5683-02-32 21:41:00 Test Item Value Reference Range Interpretation Comments POC A Hct (test code = POC A Hct) 25.0 36.0-48.0 [facility]OtvvaolCWSCJNLWJ9189-49-17 21:41:00 Test Item Value Reference Range Interpretation Comments POC A K (test code = POC A K) 3.4 3.5-5.1 L [facility] CenterUcrqomuKRBAFFICK2529-81-81 21:41:00 Test Item Value Reference Range Interpretation Comments POC A Na (test code = POC A Na) 139 135-145 N [facility] CenterKifxmfkIIMUALYQY9936-79-94 21:41:00 Test Item Value Reference Range Interpretation Comments POC A PO2 (test code = POC A PO2) 182 80-100 H [facility] CenterYjtmeprLLRRMYDXM6500-64-06 21:41:00 Test Item Value Reference Range Interpretation Comments POC A pH (test code = POC A pH) 7.39 7.35-7.45 N [facility] CenterBdzldlqFYCORXTII0184-22-39 21:41:00 Test Item Value Reference Range Interpretation Comments POC A PCO2 (test code = POC A PCO2) 45 35-45 N [facility] CenterSvbyhoeNYTQJHCCZ6349-77-84 21:41:00 Test Item Value Reference Range Interpretation Comments POC A HCO3 (test code = POC A HCO3) 27 22-26 H [facility] CenterVrktoloFSYNYXQQB8277-37-21 21:41:00 Test Item Value Reference Range Interpretation Comments POC A Source (test code = POC A Source) ART [facility] CenterNtdpovbLIXXPIUNX2873-97-55 21:41:00 Test Item Value Reference Range Interpretation Comments POC A Temp (test code = POC A Temp) 37.0 [facility] CenterAvjopfcQVGIBYCHC1393-00-76 21:41:00 Test Item Value Reference Range Interpretation Comments POC A O2 Sat (test code = POC A O2 Sat) 100.0 95.0-100.0 N [facility] CenterHefzukjKEORNGAVJ1587-41-89 21:41:00 Test Item Value Reference Range Interpretation Comments POC A BE (test code = 2 See_Comment N [Auto mated message] The POC A BE) system which ge nerated this result transmit matteo reference range : <=2. The reference range was not used to interpr et this result as miesha l/abnormal. [facility] CenterVpirnfqLGCMUWCEC3916-27-09 21:41:00 Test Item Value Reference Range Interpretation Comments POC A Glu (test code = POC A Glu) 169 70-99 H [facility] CenterWywozxoRHDEYSALD2376-99-03 21:41:00 Test Item Value Reference Range Interpretation Comments POC A Ca Ion (test code = POC A Ca Ion) 1.48 1.05-1.25 H [facility] CenterAalfzrzOEVHSSPMM8886-67-35 21:41:00 Test Item Value Reference Range Interpretation Comments POC A Hct (test code = POC A Hct) 25.0 36.0-48.0 L [facility] CenterWdawhkvROQLZVMAK7539-77-90 21:41:00 Test Item Value Reference Range Interpretation Comments POC A K (test code = POC A K) 3.4 3.5-5.1 L [facility] CenterPbpndhaYWONUPMZX4982-78-03 21:41:00 Test Item Value Reference Range Interpretation Comments POC A Na (test code = POC A Na) 139 135-145 N [facility] CenterLdrchjmREVYFTKDG4024-53-36 21:41:00 Test Item Value Reference Range Interpretation Comments POC A PO2 (test code = POC A PO2) 182 80-100 H [facility] CenterZpnqyjhUMCGTSUKN2963-29-90 21:41:00 Test Item Value Reference Range Interpretation Comments POC A pH (test code = POC A pH) 7.39 7.35-7.45 N [facility] CenterCnkgckbIBRRQRFIS3861-51-59 21:41:00 Test Item Value Reference Range Interpretation Comments POC A PCO2 (test code = POC A PCO2) 45 35-45 N [facility] CenterSejygsbXMIUXGEUA4534-01-74 21:41:00 Test Item Value Reference Range Interpretation Comments POC A HCO3 (test code = POC A HCO3) 27 22-26 H [facility] CenterTmaalzdPIWCRBGMM4766-19-64 21:41:00 Test Item Value Reference Range Interpretation Comments POC A Source (test code = POC A Source) ART [facility] CenterKdjsyajNMJOIHPFC4493-75-28 21:41:00 Test Item Value Reference Range Interpretation Comments POC A Temp (test code = POC A Temp) 37.0 [facility] CenterDurpoyoZLEAEKODB4338-69-43 21:41:00 Test Item Value Reference Range Interpretation Comments POC A O2 Sat (test code = POC A O2 Sat) 100.0 95.0-100.0 N [facility] CenterHfdqbspGOIBSGBXV5150-65-59 21:41:00 Test Item Value Reference Range Interpretation Comments POC A BE (test code = 2 See_Comment N [Auto mated message] The POC A BE) system which ge nerated this result transmit matteo reference range : <=2. The reference range was not used to interpr et this result as miesha l/abnormal. [facility] CenterEqgyspkISGECEPSG1489-62-87 21:41:00 Test Item Value Reference Range Interpretation Comments POC A Glu (test code = POC A Glu) 169 70-99 H [facility] CenterHyqgcdfCQJZZJHUE5834-54-22 21:41:00 Test Item Value Reference Range Interpretation Comments POC A Ca Ion (test code = POC A Ca Ion) 1.48 1.05-1.25 H [facility] CenterUjirgjdWDMVQBSOJ7643-11-58 21:41:00 Test Item Value Reference Range Interpretation Comments POC A Hct (test code = POC A Hct) 25.0 36.0-48.0 L [facility] CenterIchvvfpGZYQZIWPE2184-73-29 21:41:00 Test Item Value Reference Range Interpretation Comments POC A K (test code = POC A K) 3.4 3.5-5.1 L [facility] CenterLtoebsnWDRVGPGAY9048-62-64 21:41:00 Test Item Value Reference Range Interpretation Comments POC A Na (test code = POC A Na) 139 135-145 N [facility] CenterCyspnioQABOFVVDK3111-34-77 21:41:00 Test Item Value Reference Range Interpretation Comments POC A PO2 (test code = POC A PO2) 182 80-100 H [facility] CenterTqkebpqDGSVBQDZG8094-10-32 21:41:00 Test Item Value Reference Range Interpretation Comments POC A pH (test code = POC A pH) 7.39 7.35-7.45 N [facility] CenterVsqvvseEWSRBSZFB3595-30-52 21:41:00 Test Item Value Reference Range Interpretation Comments POC A PCO2 (test code = POC A PCO2) 45 35-45 N [facility] CenterVddqgvvVXFQPDINO4624-87-89 21:41:00 Test Item Value Reference Range Interpretation Comments POC A HCO3 (test code = POC A HCO3) 27 22-26 H [facility] CenterDaryzchWALKUCKQL0881-94-29 21:41:00 Test Item Value Reference Range Interpretation Comments POC A Source (test code = POC A Source) ART [facility] CenterZrynfoyUREDISHHH6337-91-93 21:41:00 Test Item Value Reference Range Interpretation Comments POC A Temp (test code = POC A Temp) 37.0 [facility] CenterOsdptdkPJDNWADYX6954-32-06 21:41:00 Test Item Value Reference Range Interpretation Comments POC A O2 Sat (test code = POC A O2 Sat) 100.0 95.0-100.0 N [facility] CenterQfadibjWYDUZFZDP3013-00-86 21:41:00 Test Item Value Reference Range Interpretation Comments POC A BE (test code = 2 See_Comment N [Auto mated message] The POC A BE) system which ge nerated this result transmit matteo reference range : <=2. The reference range was not used to interpr et this result as miesha l/abnormal. [facility] CenterXjrqbdlRGJEUNQLP1541-81-41 21:41:00 Test Item Value Reference Range Interpretation Comments POC A Glu (test code = POC A Glu) 169 70-99 H [facility] CenterIrmhaasUZMTRCLIA3469-93-80 21:41:00 Test Item Value Reference Range Interpretation Comments POC A Ca Ion (test code = POC A Ca Ion) 1.48 1.05-1.25 H [facility] CenterMlfzsqhBXWUTKXUV3713-42-37 21:41:00 Test Item Value Reference Range Interpretation Comments POC A Hct (test code = POC A Hct) 25.0 36.0-48.0 L [facility] CenterQjagazdOGPPHPPCZ4744-04-48 21:41:00 Test Item Value Reference Range Interpretation Comments POC A K (test code = POC A K) 3.4 3.5-5.1 L [facility] CenterNmfltxfPOQCOYZOP5877-74-86 21:41:00 Test Item Value Reference Range Interpretation Comments POC A Na (test code = POC A Na) 139 135-145 N [facility] CenterKdmfofeJUJFCFMOO5815-75-22 21:41:00 Test Item Value Reference Range Interpretation Comments POC A PO2 (test code = POC A PO2) 182 80-100 H [facility] CenterKdarbdoJKOGCQFDE6472-77-49 21:41:00 Test Item Value Reference Range Interpretation Comments POC A pH (test code = POC A pH) 7.39 7.35-7.45 N [facility] CenterRhboguiUSNTEZAVJ7313-68-07 21:41:00 Test Item Value Reference Range Interpretation Comments POC A PCO2 (test code = POC A PCO2) 45 35-45 N [facility] CenterKpqusctIKSLMBVTH1300-01-94 21:41:00 Test Item Value Reference Range Interpretation Comments POC A HCO3 (test code = POC A HCO3) 27 22-26 H [facility] CenterFsxtashMORPBGBNI0034-29-80 21:41:00 Test Item Value Reference Range Interpretation Comments POC A Source (test code = POC A Source) ART [facility] CenterGmbwybbZQOWEHWMD1797-99-03 21:41:00 Test Item Value Reference Range Interpretation Comments POC A Temp (test code = POC A Temp) 37.0 [facility] CenterJyasxozJTWZQCDHH6937-83-69 21:41:00 Test Item Value Reference Range Interpretation Comments POC A O2 Sat (test code = POC A O2 Sat) 100.0 95.0-100.0 N [facility] CenterEfpxcfxADFGEPEWL9549-25-26 21:41:00 Test Item Value Reference Range Interpretation Comments POC A BE (test code = 2 See_Comment N [Auto mated message] The POC A BE) system which ge nerated this result transmit matteo reference range : <=2. The reference range was not used to interpr et this result as miesha l/abnormal. [facility] CenterQebbfecUAYPVRXGE1343-26-49 21:41:00 Test Item Value Reference Range Interpretation Comments POC A Glu (test code = POC A Glu) 169 70-99 H [facility] CenterKmcdiikTASIGYPSO4189-52-73 21:41:00 Test Item Value Reference Range Interpretation Comments POC A Ca Ion (test code = POC A Ca Ion) 1.48 1.05-1.25 H [facility] CenterEahfacnESFUOHJWF6766-51-98 21:41:00 Test Item Value Reference Range Interpretation Comments POC A Hct (test code = POC A Hct) 25.0 36.0-48.0 L [facility] CenterPxwrzvfOEMQNLURT8870-96-19 21:41:00 Test Item Value Reference Range Interpretation Comments POC A K (test code = POC A K) 3.4 3.5-5.1 L [facility] CenterSzcqmryVZMKRCEJM4547-26-46 21:41:00 Test Item Value Reference Range Interpretation Comments POC A Na (test code = POC A Na) 139 135-145 N [facility] CenterLegljoeORADTIVCL2313-36-58 21:41:00 Test Item Value Reference Range Interpretation Comments POC A PO2 (test code = POC A PO2) 182 80-100 H [facility] CenterOpqgyhiXYFKXGPPS0450-44-96 21:41:00 Test Item Value Reference Range Interpretation Comments POC A pH (test code = POC A pH) 7.39 7.35-7.45 N [facility] CenterVlavdvhDAVHCMNWI2872-14-70 21:41:00 Test Item Value Reference Range Interpretation Comments POC A PCO2 (test code = POC A PCO2) 45 35-45 N [facility] CenterDhnahjkYTJJQQJQF3888-76-76 21:41:00 Test Item Value Reference Range Interpretation Comments POC A HCO3 (test code = POC A HCO3) 27 22-26 H [facility] CenterTqllnxfGVBPLLDED0657-50-07 21:41:00 Test Item Value Reference Range Interpretation Comments POC A Source (test code = POC A Source) ART [facility] CenterDaeiceqTGMZQQPEX2036-72-83 21:41:00 Test Item Value Reference Range Interpretation Comments POC A Temp (test code = POC A Temp) 37.0 [facility] CenterZuqapcgTZGVITJSX8266-29-10 21:41:00 Test Item Value Reference Range Interpretation Comments POC A O2 Sat (test code = POC A O2 Sat) 100.0 95.0-100.0 N [facility] CenterEragzazYTIEOXLHG8953-37-67 21:41:00 Test Item Value Reference Range Interpretation Comments POC A BE (test code = 2 See_Comment N [Auto mated message] The POC A BE) system which ge nerated this result transmit matteo reference range : <=2. The reference range was not used to interpr et this result as miesha l/abnormal. [facility] CenterPwtrxniFFPZDWWAN1392-69-93 21:41:00 Test Item Value Reference Range Interpretation Comments POC A Glu (test code = POC A Glu) 169 70-99 H [facility] CenterMxvtcotCXYUYOZLH8553-74-16 21:41:00 Test Item Value Reference Range Interpretation Comments POC A Ca Ion (test code = POC A Ca Ion) 1.48 1.05-1.25 H [facility] CenterRgoyartIKZXJXZPP2406-13-89 21:41:00 Test Item Value Reference Range Interpretation Comments POC A Hct (test code = POC A Hct) 25.0 36.0-48.0 L [facility] CenterJeztltzDXCATDCWO3011-90-68 21:41:00 Test Item Value Reference Range Interpretation Comments POC A K (test code = POC A K) 3.4 3.5-5.1 L [facility] CenterXdfxamwNTDZGTWMQ0834-11-24 21:41:00 Test Item Value Reference Range Interpretation Comments POC A Na (test code = POC A Na) 139 135-145 N [facility] CenterEgzzafyUZGLATSOO1917-35-48 21:41:00 Test Item Value Reference Range Interpretation Comments POC A PO2 (test code = POC A PO2) 182 80-100 H [facility] CenterOfufzhnKPDBXWGVW1666-90-74 21:41:00 Test Item Value Reference Range Interpretation Comments POC A pH (test code = POC A pH) 7.39 7.35-7.45 N [facility] CenterUetwihzJFMWPGHZR9962-01-46 21:41:00 Test Item Value Reference Range Interpretation Comments POC A PCO2 (test code = POC A PCO2) 45 35-45 N [facility] CenterPvgqgjyIITMJWTUK3456-68-59 21:41:00 Test Item Value Reference Range Interpretation Comments POC A HCO3 (test code = POC A HCO3) 27 22-26 H [facility] CenterXbkrwljRJFSQUAZG3097-39-56 21:41:00 Test Item Value Reference Range Interpretation Comments POC A Source (test code = POC A Source) ART [facility] CenterNwpazoeRLWVBTSTN4630-70-72 21:41:00 Test Item Value Reference Range Interpretation Comments POC A Temp (test code = POC A Temp) 37.0 [facility] CenterYphqzoeZEXTTOUOB0969-46-27 21:41:00 Test Item Value Reference Range Interpretation Comments POC A O2 Sat (test code = POC A O2 Sat) 100.0 95.0-100.0 N [facility] CenterOownkzkDYJQSFNYY5865-59-82 21:41:00 Test Item Value Reference Range Interpretation Comments POC A BE (test code = 2 See_Comment N [Auto mated message] The POC A BE) system which ge nerated this result transmit matteo reference range : <=2. The reference range was not used to interpr et this result as miesha l/abnormal. [facility] CenterShbarrzJLXSSTVGH6412-30-32 21:10:00 Test Item Value Reference Range Interpretation Comments POC A Glu (test code = POC A Glu) 152 70-99 H [facility] CenterWkafgvrCUKCGMZGV2095-78-39 21:10:00 Test Item Value Reference Range Interpretation Comments POC A Ca Ion (test code = POC A Ca Ion) 1.54 1.05-1.25 H [facility] CenterSexyzxeWJWOOLSXD9738-86-83 21:10:00 Test Item Value Reference Range Interpretation Comments POC A PO2 (test code = POC A PO2) 312 80-100 H [facility] CenterAvpeulsONUWDODCY5602-24-04 21:10:00 Test Item Value Reference Range Interpretation Comments POC A PCO2 (test code = POC A PCO2) 49 35-45 H [facility] CenterKztblgrUDSKNKJDA3230-56-44 21:10:00 Test Item Value Reference Range Interpretation Comments POC A HCO3 (test code = POC A HCO3) 28 22-26 H [facility] CenterZfbsbruRKENPIWMG5449-10-32 21:10:00 Test Item Value Reference Range Interpretation Comments POC A Temp (test code = POC A Temp) 37.0 [facility] CenterUoesqamQXZKEFJHN9690-40-90 21:10:00 Test Item Value Reference Range Interpretation Comments POC A Hct (test code = POC A Hct) 25.0 36.0-48.0 L [facility] CenterDmaphumCKWEBNYOQ2942-74-90 21:10:00 Test Item Value Reference Range Interpretation Comments POC A Na (test code = POC A Na) 138 135-145 N [facility] CenterRxhhiupIHZGRLKQW2860-59-94 21:10:00 Test Item Value Reference Range Interpretation Comments POC A K (test code = POC A K) 4.0 3.5-5.1 N [facility] CenterEchpsxvEXSKVJFQB4875-52-51 21:10:00 Test Item Value Reference Range Interpretation Comments POC A BE (test code = 3 See_Comment H [Auto mated message] The POC A BE) system which ge nerated this result transmit matteo reference range : <=2. The reference range was not used to interpr et this result as miesha l/abnormal. [facility] CenterNkdcuthDFQZSKLIO1562-77-70 21:10:00 Test Item Value Reference Range Interpretation Comments POC A O2 Sat (test code = POC A O2 Sat) 100.0 95.0-100.0 N [facility] CenterYymrystYNAAQLLKH6677-80-46 21:10:00 Test Item Value Reference Range Interpretation Comments POC A pH (test code = POC A pH) 7.37 7.35-7.45 N [facility] CenterUlbvowaTPMFBVVMI3487-90-72 21:10:00 Test Item Value Reference Range Interpretation Comments POC A Source (test code = POC A Source) ART [facility] CenterCpogogqCENEKSGFM9540-71-54 21:10:00 Test Item Value Reference Range Interpretation Comments POC A Glu (test code = POC A Glu) 152 70-99 H [facility] CenterCmnizlrJAGQETTAU8387-92-55 21:10:00 Test Item Value Reference Range Interpretation Comments POC A Ca Ion (test code = POC A Ca Ion) 1.54 1.05-1.25 H [facility] CenterNdbkftmAWUCMFCRU2744-66-24 21:10:00 Test Item Value Reference Range Interpretation Comments POC A PO2 (test code = POC A PO2) 312 80-100 H [facility] CenterHodjiivTNSYUGGGC7208-84-72 21:10:00 Test Item Value Reference Range Interpretation Comments POC A PCO2 (test code = POC A PCO2) 49 35-45 H [facility] CenterCgmpvmpKCOWMVKTZ3719-50-23 21:10:00 Test Item Value Reference Range Interpretation Comments POC A HCO3 (test code = POC A HCO3) 28 22-26 H [facility] CenterYzamsfyGJORCVTUG7444-00-03 21:10:00 Test Item Value Reference Range Interpretation Comments POC A Temp (test code = POC A Temp) 37.0 [facility] CenterUkemknzZAIQBISZR8483-75-13 21:10:00 Test Item Value Reference Range Interpretation Comments POC A Hct (test code = POC A Hct) 25.0 36.0-48.0 L [facility] CenterBcxadkgBOSPWOIQM2378-14-46 21:10:00 Test Item Value Reference Range Interpretation Comments POC A Na (test code = POC A Na) 138 135-145 N [facility] CenterDblukxcQEMJHLIVR8370-60-45 21:10:00 Test Item Value Reference Range Interpretation Comments POC A K (test code = POC A K) 4.0 3.5-5.1 N [facility] CenterOrltlucXUBCTISZK7579-86-96 21:10:00 Test Item Value Reference Range Interpretation Comments POC A BE (test code = 3 See_Comment H [Auto mated message] The POC A BE) system which ge nerated this result transmit matteo reference range : <=2. The reference range was not used to interpr et this result as miesha l/abnormal. [facility] CenterKrfziuaYGNXVRKAY0328-35-52 21:10:00 Test Item Value Reference Range Interpretation Comments POC A O2 Sat (test code = POC A O2 Sat) 100.0 95.0-100.0 N [facility] CenterDiovgbyLJDAYGLOI5882-78-54 21:10:00 Test Item Value Reference Range Interpretation Comments POC A pH (test code = POC A pH) 7.37 7.35-7.45 N [facility] CenterIflhcklZJAVCIHSH2509-09-36 21:10:00 Test Item Value Reference Range Interpretation Comments POC A Source (test code = POC A Source) ART [facility] CenterUfmmrntRHZVMYFUC3542-45-38 21:10:00 Test Item Value Reference Range Interpretation Comments POC A Glu (test code = POC A Glu) 152 70-99 H [facility] CenterRsfagbsWCEOSXVSY8621-75-94 21:10:00 Test Item Value Reference Range Interpretation Comments POC A Ca Ion (test code = POC A Ca Ion) 1.54 1.05-1.25 H [facility] CenterLtgyqvbGUDNKZDFB3143-63-63 21:10:00 Test Item Value Reference Range Interpretation Comments POC A PO2 (test code = POC A PO2) 312 80-100 H [facility] CenterKlrtwttZJOQZBXDH7410-04-28 21:10:00 Test Item Value Reference Range Interpretation Comments POC A PCO2 (test code = POC A PCO2) 49 35-45 H [facility] CenterBmcqnwmAGPOVYYOM2923-81-69 21:10:00 Test Item Value Reference Range Interpretation Comments POC A HCO3 (test code = POC A HCO3) 28 22-26 H [facility] CenterMbehvjaDFMMGUBNX5220-95-85 21:10:00 Test Item Value Reference Range Interpretation Comments POC A Temp (test code = POC A Temp) 37.0 [facility] CenterNasrdapLBXZWBKAV4732-10-07 21:10:00 Test Item Value Reference Range Interpretation Comments POC A Hct (test code = POC A Hct) 25.0 36.0-48.0 L [facility] CenterBabzjbnTTNSPMSTG8211-44-90 21:10:00 Test Item Value Reference Range Interpretation Comments POC A Na (test code = POC A Na) 138 135-145 N [facility] CenterJttzieyPZQFXKPFI6317-66-19 21:10:00 Test Item Value Reference Range Interpretation Comments POC A K (test code = POC A K) 4.0 3.5-5.1 N [facility] CenterKlrbuzpVBTGLEVQH0825-64-59 21:10:00 Test Item Value Reference Range Interpretation Comments POC A BE (test code = 3 See_Comment H [Auto mated message] The POC A BE) system which ge nerated this result transmit matteo reference range : <=2. The reference range was not used to interpr et this result as miesha l/abnormal. [facility] CenterLdzsimoYWHSALSKM8803-29-92 21:10:00 Test Item Value Reference Range Interpretation Comments POC A O2 Sat (test code = POC A O2 Sat) 100.0 95.0-100.0 N [facility] CenterYajjvgjNBFXIOLHG4986-05-15 21:10:00 Test Item Value Reference Range Interpretation Comments POC A pH (test code = POC A pH) 7.37 7.35-7.45 N [facility] CenterTzclcjsVZXFMCMQL0739-01-34 21:10:00 Test Item Value Reference Range Interpretation Comments POC A Source (test code = POC A Source) ART [facility] CenterYiczkxfGMYWLUJDO4994-17-50 21:10:00 Test Item Value Reference Range Interpretation Comments POC A Glu (test code = POC A Glu) 152 70-99 H [facility] CenterEprfbgqLBHWJTRAA0294-61-74 21:10:00 Test Item Value Reference Range Interpretation Comments POC A Ca Ion (test code = POC A Ca Ion) 1.54 1.05-1.25 H [facility] CenterQkaqcwwCKDNUYWAA5765-50-69 21:10:00 Test Item Value Reference Range Interpretation Comments POC A PO2 (test code = POC A PO2) 312 80-100 H [facility] CenterAptylqdWYAZPRYPG2428-21-40 21:10:00 Test Item Value Reference Range Interpretation Comments POC A PCO2 (test code = POC A PCO2) 49 35-45 H [facility] CenterPzxnmjhCPOYKQRGG6524-94-17 21:10:00 Test Item Value Reference Range Interpretation Comments POC A HCO3 (test code = POC A HCO3) 28 22-26 H [facility] CenterAvkquocQGFEYSYIL5406-78-50 21:10:00 Test Item Value Reference Range Interpretation Comments POC A Temp (test code = POC A Temp) 37.0 [facility] CenterKcglpenECOQGENFM2661-09-08 21:10:00 Test Item Value Reference Range Interpretation Comments POC A Hct (test code = POC A Hct) 25.0 36.0-48.0 L [facility] CenterPknzdqiZDWIXWSTU3670-10-31 21:10:00 Test Item Value Reference Range Interpretation Comments POC A Na (test code = POC A Na) 138 135-145 N [facility] CenterMeoojzrHNTNQCJFL1394-82-45 21:10:00 Test Item Value Reference Range Interpretation Comments POC A K (test code = POC A K) 4.0 3.5-5.1 N [facility] CenterFbmvgqkXWWYBARPE8670-65-78 21:10:00 Test Item Value Reference Range Interpretation Comments POC A BE (test code = 3 See_Comment H [Auto mated message] The POC A BE) system which ge nerated this result transmit matteo reference range : <=2. The reference range was not used to interpr et this result as miesha l/abnormal. [facility] CenterMwfeqruYRPFNNFIM6684-41-03 21:10:00 Test Item Value Reference Range Interpretation Comments POC A O2 Sat (test code = POC A O2 Sat) 100.0 95.0-100.0 N [facility] CenterBwrfhovHZARLZGMZ4362-82-48 21:10:00 Test Item Value Reference Range Interpretation Comments POC A pH (test code = POC A pH) 7.37 7.35-7.45 N [facility] CenterToswmavLXCEHBRKL8984-38-33 21:10:00 Test Item Value Reference Range Interpretation Comments POC A Source (test code = POC A Source) ART [facility] CenterWlppidiXKHOOQWET5522-00-08 21:10:00 Test Item Value Reference Range Interpretation Comments POC A Glu (test code = POC A Glu) 152 70-99 H [facility] CenterCbmcknwKAVRJUSEZ9700-53-52 21:10:00 Test Item Value Reference Range Interpretation Comments POC A Ca Ion (test code = POC A Ca Ion) 1.54 1.05-1.25 H [facility] CenterPppdsdcNJNFDPRGM1257-17-23 21:10:00 Test Item Value Reference Range Interpretation Comments POC A PO2 (test code = POC A PO2) 312 80-100 H [facility] CenterYqfwnliIVOALNNOT8518-84-80 21:10:00 Test Item Value Reference Range Interpretation Comments POC A PCO2 (test code = POC A PCO2) 49 35-45 H [facility] CenterFjqyomnYGVJKIUVY9591-13-04 21:10:00 Test Item Value Reference Range Interpretation Comments POC A HCO3 (test code = POC A HCO3) 28 22-26 H [facility] CenterAcrspnfVSBKMKIKF5847-47-17 21:10:00 Test Item Value Reference Range Interpretation Comments POC A Temp (test code = POC A Temp) 37.0 [facility] CenterWpaerhxKXHSOCFWF1833-29-81 21:10:00 Test Item Value Reference Range Interpretation Comments POC A Hct (test code = POC A Hct) 25.0 36.0-48.0 L [facility] CenterApxxdluSEQQRLZPS8652-54-89 21:10:00 Test Item Value Reference Range Interpretation Comments POC A Na (test code = POC A Na) 138 135-145 N [facility] CenterBgmeuqdWGSZHNOTA1277-80-46 21:10:00 Test Item Value Reference Range Interpretation Comments POC A K (test code = POC A K) 4.0 3.5-5.1 [facility]ZbnbomaGWIAMVEMF0378-28-36 21:10:00 Test Item Value Reference Range Interpretation Comments POC A BE (test code = 3 See_Comment H [Auto mated message] The POC A BE) system which ge nerated this result transmit matteo reference range : <=2. The reference range was not used to interpr et this result as miesha l/abnormal. [facility] CenterSuswqmuSYAHQOVUA9453-02-62 21:10:00 Test Item Value Reference Range Interpretation Comments POC A O2 Sat (test code = POC A O2 Sat) 100.0 95.0-100.0 N [facility] CenterPclldxnHIKWAHPAW7300-19-73 21:10:00 Test Item Value Reference Range Interpretation Comments POC A pH (test code = POC A pH) 7.37 7.35-7.45 N [facility] CenterUtmnefvKFOZAIRXC1761-38-02 21:10:00 Test Item Value Reference Range Interpretation Comments POC A Source (test code = POC A Source) ART [facility] CenterAzdjwvoAXLAPFQMI0227-69-62 21:10:00 Test Item Value Reference Range Interpretation Comments POC A Glu (test code = POC A Glu) 152 70-99 H [facility] CenterIzdgobkRQOYWPMDA6975-80-46 21:10:00 Test Item Value Reference Range Interpretation Comments POC A Ca Ion (test code = POC A Ca Ion) 1.54 1.05-1.25 H [facility] CenterSndbzuzNHJCEUFLU9980-55-00 21:10:00 Test Item Value Reference Range Interpretation Comments POC A PO2 (test code = POC A PO2) 312 80-100 H [facility] CenterFhrvizfVAOMUMKOV7810-90-07 21:10:00 Test Item Value Reference Range Interpretation Comments POC A PCO2 (test code = POC A PCO2) 49 35-45 H [facility] CenterAqpumefHTJDITSHC2026-61-27 21:10:00 Test Item Value Reference Range Interpretation Comments POC A HCO3 (test code = POC A HCO3) 28 22-26 H [facility] CenterGkwvhjsZDOEJANYX6027-91-26 21:10:00 Test Item Value Reference Range Interpretation Comments POC A Temp (test code = POC A Temp) 37.0 [facility] CenterNekypyxXXIFVGTPR0010-82-02 21:10:00 Test Item Value Reference Range Interpretation Comments POC A Hct (test code = POC A Hct) 25.0 36.0-48.0 L [facility] CenterOotxvilNDHMSKWWL0601-92-39 21:10:00 Test Item Value Reference Range Interpretation Comments POC A Na (test code = POC A Na) 138 135-145 N [facility] CenterBpxclubHGACDCMRP6931-54-06 21:10:00 Test Item Value Reference Range Interpretation Comments POC A K (test code = POC A K) 4.0 3.5-5.1 N [facility] CenterBhryerpJEWBWGHIN9315-32-34 21:10:00 Test Item Value Reference Range Interpretation Comments POC A BE (test code = 3 See_Comment H [Auto mated message] The POC A BE) system which ge nerated this result transmit matteo reference range : <=2. The reference range was not used to interpr et this result as miesha l/abnormal. [facility] CenterGkcsykdAMRUGCJWF0914-31-85 21:10:00 Test Item Value Reference Range Interpretation Comments POC A O2 Sat (test code = POC A O2 Sat) 100.0 95.0-100.0 N [facility] CenterAhroacrTJFAKLLFR1630-23-59 21:10:00 Test Item Value Reference Range Interpretation Comments POC A pH (test code = POC A pH) 7.37 7.35-7.45 N [facility] CenterTxnpprmGDHKENWAZ9564-12-84 21:10:00 Test Item Value Reference Range Interpretation Comments POC A Source (test code = POC A Source) ART [facility] [id number] 21:07:00 Test Item Value Reference Range Interpretation Comments FFP product (test code Product available N = FFP product) (02/21/2013 16:07:00) [facility] [id number] 21:07:00 Test Item Value Reference Range Interpretation Comments FFP product (test code Product available N = FFP product) (02/21/2013 16:07:00) [facility] [id number] 21:07:00 Test Item Value Reference Range Interpretation Comments FFP product (test code Product available N = FFP product) (02/21/2013 16:07:00) [facility] [id number] 21:07:00 Test Item Value Reference Range Interpretation Comments FFP product (test code Product available N = FFP product) (02/21/2013 16:07:00) [facility] [id number] 21:07:00 Test Item Value Reference Range Interpretation Comments FFP product (test code Product available N = FFP product) (02/21/2013 16:07:00) [facility] [id number] 21:07:00 Test Item Value Reference Range Interpretation Comments FFP product (test code Product available N = FFP product) (02/21/2013 16:07:00) [facility] [id number] 21:05:00 Test Item Value Reference Range Interpretation Comments Platelet product (test Product available N code = Platelet (02/21/2013 16:05:00) product) [facility] [id number] 21:05:00 Test Item Value Reference Range Interpretation Comments Platelet product (test Product available N code = Platelet (02/21/2013 16:05:00) product) [facility] [id number] 21:05:00 Test Item Value Reference Range Interpretation Comments Platelet product (test Product available N code = Platelet (02/21/2013 16:05:00) product) [facility] [id number] 21:05:00 Test Item Value Reference Range Interpretation Comments Platelet product (test Product available N code = Platelet (02/21/2013 16:05:00) product) [facility] [id number] 21:05:00 Test Item Value Reference Range Interpretation Comments Platelet product (test Product available N code = Platelet (02/21/2013 16:05:00) product) [facility]Source AudioBLOOD B[facility] [id number] 21:05:00 Test Item Value Reference Range Interpretation Comments Platelet product (test Product available N code = Platelet (02/21/2013 16:05:00) product) [facility]WohgukiBZXCAHJXD3241-73-12 20:52:00 Test Item Value Reference Range Interpretation Comments POC A PO2 (test code = POC A PO2) 362 80-100 H [facility] ArlingtonQkbmwvhSENOYNHKN4972-55-86 20:52:00 Test Item Value Reference Range Interpretation Comments POC A pH (test code = POC A pH) 7.40 7.35-7.45 N [facility] ArlingtonQgkspzaFCCESYDQB6622-96-53 20:52:00 Test Item Value Reference Range Interpretation Comments POC A BE (test code = 3 See_Comment H [Auto mated message] The POC A BE) system which ge nerated this result transmit matteo reference range : <=2. The reference range was not used to interpr et this result as miesha l/abnormal. [facility] ArlingtonTmdgwcaZEHBISSVI3068-24-22 20:52:00 Test Item Value Reference Range Interpretation Comments POC A PCO2 (test code = POC A PCO2) 45 35-45 N [facility] ArlingtonYuhpsmlUXLDOOXDI3221-38-18 20:52:00 Test Item Value Reference Range Interpretation Comments POC A HCO3 (test code = POC A HCO3) 28 22-26 H [facility] ArlingtonZdjiwljEWYAZAHYV9936-94-08 20:52:00 Test Item Value Reference Range Interpretation Comments POC A Hct (test code = POC A Hct) 24.0 36.0-48.0 L [facility] ArlingtonRdutnjcGSVEOBSLA4243-26-86 20:52:00 Test Item Value Reference Range Interpretation Comments POC A Na (test code = POC A Na) 139 135-145 N [facility] ArlingtonGuhpdzzQHUBMRDSN2430-38-61 20:52:00 Test Item Value Reference Range Interpretation Comments POC A Temp (test code = POC A Temp) 37.0 [facility] ArlingtonDhqwhodDDEZNATQD3144-32-94 20:52:00 Test Item Value Reference Range Interpretation Comments POC A O2 Sat (test code = POC A O2 Sat) 100.0 95.0-100.0 N [facility] CenterYdsxrsyOXDBETLGQ0436-01-32 20:52:00 Test Item Value Reference Range Interpretation Comments POC A Source (test code = POC A Source) ART [facility] CenterJbrsjztZZZXDCNSJ9949-34-21 20:52:00 Test Item Value Reference Range Interpretation Comments POC A K (test code = POC A K) 3.8 3.5-5.1 N [facility] CenterUaodakoKPJNZMWPR6179-92-98 20:52:00 Test Item Value Reference Range Interpretation Comments POC A Ca Ion (test code = POC A Ca Ion) 0.97 1.05-1.25 L [facility] CenterHmewnadTNXVNQHGN8550-12-30 20:52:00 Test Item Value Reference Range Interpretation Comments POC A Glu (test code = POC A Glu) 150 70-99 H [facility] CenterGzqulizLSQACLZTD1838-28-20 20:52:00 Test Item Value Reference Range Interpretation Comments POC A PO2 (test code = POC A PO2) 362 80-100 H [facility] CenterNloatwcOICINGXJS0668-50-59 20:52:00 Test Item Value Reference Range Interpretation Comments POC A pH (test code = POC A pH) 7.40 7.35-7.45 N [facility] CenterMnhgdmsJANUSUZPE9009-26-80 20:52:00 Test Item Value Reference Range Interpretation Comments POC A BE (test code = 3 See_Comment H [Auto mated message] The POC A BE) system which ge nerated this result transmit matteo reference range : <=2. The reference range was not used to interpr et this result as miesha l/abnormal. [facility] CenterUxwxokmTTMLRUWAF2692-82-99 20:52:00 Test Item Value Reference Range Interpretation Comments POC A PCO2 (test code = POC A PCO2) 45 35-45 N [facility] CenterPkabioyOYEGAFGRV1446-32-27 20:52:00 Test Item Value Reference Range Interpretation Comments POC A HCO3 (test code = POC A HCO3) 28 22-26 H [facility] CenterDpgvdokQQKISMLKO4376-99-79 20:52:00 Test Item Value Reference Range Interpretation Comments POC A Hct (test code = POC A Hct) 24.0 36.0-48.0 L [facility] CenterAcprpauMYXMINWFQ2235-04-57 20:52:00 Test Item Value Reference Range Interpretation Comments POC A Na (test code = POC A Na) 139 135-145 N [facility] CenterXvjzdgrKVPIBLTSJ6041-33-54 20:52:00 Test Item Value Reference Range Interpretation Comments POC A Temp (test code = POC A Temp) 37.0 [facility] CenterXlfxdjgEKVGVFMTF8436-47-61 20:52:00 Test Item Value Reference Range Interpretation Comments POC A O2 Sat (test code = POC A O2 Sat) 100.0 95.0-100.0 N [facility] CenterXkycvtsYVXLIEKXD2424-32-10 20:52:00 Test Item Value Reference Range Interpretation Comments POC A Source (test code = POC A Source) ART [facility] CenterTxvnyduHVIVSRKSP6284-63-40 20:52:00 Test Item Value Reference Range Interpretation Comments POC A K (test code = POC A K) 3.8 3.5-5.1 N [facility] CenterPlyqmzuMLLSYHECO9104-78-43 20:52:00 Test Item Value Reference Range Interpretation Comments POC A Ca Ion (test code = POC A Ca Ion) 0.97 1.05-1.25 L [facility] CenterKjxtovkLYWZJXCTA6221-65-72 20:52:00 Test Item Value Reference Range Interpretation Comments POC A Glu (test code = POC A Glu) 150 70-99 H [facility] CenterKuwirvjLOQWVVDRV3784-14-94 20:52:00 Test Item Value Reference Range Interpretation Comments POC A PO2 (test code = POC A PO2) 362 80-100 H [facility] CenterZjsghwxMESDTJPIT1448-96-75 20:52:00 Test Item Value Reference Range Interpretation Comments POC A pH (test code = POC A pH) 7.40 7.35-7.45 N [facility] CenterLgzcfwfRTLUNHPBS1038-54-55 20:52:00 Test Item Value Reference Range Interpretation Comments POC A BE (test code = 3 See_Comment H [Auto mated message] The POC A BE) system which ge nerated this result transmit matteo reference range : <=2. The reference range was not used to interpr et this result as miesha l/abnormal. [facility] CenterGejoyfeXCBPDNCWT3878-74-28 20:52:00 Test Item Value Reference Range Interpretation Comments POC A PCO2 (test code = POC A PCO2) 45 35-45 N [facility] CenterIhzwpgkPCNCCRPKW2566-75-10 20:52:00 Test Item Value Reference Range Interpretation Comments POC A HCO3 (test code = POC A HCO3) 28 22-26 H [facility] CenterRfmaqzlIIGDYOPPX3109-38-84 20:52:00 Test Item Value Reference Range Interpretation Comments POC A Hct (test code = POC A Hct) 24.0 36.0-48.0 L [facility] CenterZhjorksTUEIHYYBY2034-57-59 20:52:00 Test Item Value Reference Range Interpretation Comments POC A Na (test code = POC A Na) 139 135-145 N [facility] CenterDowirzsNHODJTZBP3679-98-60 20:52:00 Test Item Value Reference Range Interpretation Comments POC A Temp (test code = POC A Temp) 37.0 [facility] CenterSwaycogYPBRERNVP6785-42-85 20:52:00 Test Item Value Reference Range Interpretation Comments POC A O2 Sat (test code = POC A O2 Sat) 100.0 95.0-100.0 N [facility] CenterAitjyliERIABDJSS8817-48-21 20:52:00 Test Item Value Reference Range Interpretation Comments POC A Source (test code = POC A Source) ART [facility] CenterCftidxlVEDMBYRDS6920-12-05 20:52:00 Test Item Value Reference Range Interpretation Comments POC A K (test code = POC A K) 3.8 3.5-5.1 N [facility] CenterFagvvreTDHKPNRSA5247-84-85 20:52:00 Test Item Value Reference Range Interpretation Comments POC A Ca Ion (test code = POC A Ca Ion) 0.97 1.05-1.25 L [facility] CenterFrwobeqIQTXLUIKT3720-96-80 20:52:00 Test Item Value Reference Range Interpretation Comments POC A Glu (test code = POC A Glu) 150 70-99 H [facility] CenterCiibnntRXKNOLEZV3003-40-61 20:52:00 Test Item Value Reference Range Interpretation Comments POC A PO2 (test code = POC A PO2) 362 80-100 H [facility] CenterJemggjkUJIYLKTFJ7480-40-90 20:52:00 Test Item Value Reference Range Interpretation Comments POC A pH (test code = POC A pH) 7.40 7.35-7.45 N [facility] CenterEjcwumoMGOJPSKLT9192-49-29 20:52:00 Test Item Value Reference Range Interpretation Comments POC A BE (test code = 3 See_Comment H [Auto mated message] The POC A BE) system which ge nerated this result transmit matteo reference range : <=2. The reference range was not used to interpr et this result as miesha l/abnormal. [facility] CenterRkaafjrLMDVQJXGS5014-29-48 20:52:00 Test Item Value Reference Range Interpretation Comments POC A PCO2 (test code = POC A PCO2) 45 35-45 N [facility] CenterDorwuvbTRNOHMSPZ5183-51-79 20:52:00 Test Item Value Reference Range Interpretation Comments POC A HCO3 (test code = POC A HCO3) 28 22-26 H [facility] CenterEutgtnvRHBWEQSKN8670-93-23 20:52:00 Test Item Value Reference Range Interpretation Comments POC A Hct (test code = POC A Hct) 24.0 36.0-48.0 L [facility] CenterEglpmexPUTDXTQSN9715-63-42 20:52:00 Test Item Value Reference Range Interpretation Comments POC A Na (test code = POC A Na) 139 135-145 N [facility] CenterGnliovfCFAKPGTQR2243-77-58 20:52:00 Test Item Value Reference Range Interpretation Comments POC A Temp (test code = POC A Temp) 37.0 [facility] CenterMdfcjfrZMRSENKUT4684-78-63 20:52:00 Test Item Value Reference Range Interpretation Comments POC A O2 Sat (test code = POC A O2 Sat) 100.0 95.0-100.0 N [facility] CenterBmewbarKFLSZVYVQ6683-10-16 20:52:00 Test Item Value Reference Range Interpretation Comments POC A Source (test code = POC A Source) ART [facility] CenterSlbvrfyTRCWMWFCR6142-07-30 20:52:00 Test Item Value Reference Range Interpretation Comments POC A K (test code = POC A K) 3.8 3.5-5.1 N [facility] CenterUlnogeaPHRNYUSHZ9662-75-67 20:52:00 Test Item Value Reference Range Interpretation Comments POC A Ca Ion (test code = POC A Ca Ion) 0.97 1.05-1.25 L [facility] CenterHdggqcyEVYDKDKUD0807-07-78 20:52:00 Test Item Value Reference Range Interpretation Comments POC A Glu (test code = POC A Glu) 150 70-99 H [facility] CenterPmdpbouGGYYSRKDJ4121-88-13 20:52:00 Test Item Value Reference Range Interpretation Comments POC A PO2 (test code = POC A PO2) 362 80-100 H [facility] CenterUnuwkkmUDMNEJCCO7395-09-57 20:52:00 Test Item Value Reference Range Interpretation Comments POC A pH (test code = POC A pH) 7.40 7.35-7.45 N [facility] CenterSvpzcgjNTZFOPSEJ3682-26-35 20:52:00 Test Item Value Reference Range Interpretation Comments POC A BE (test code = 3 See_Comment H [Auto mated message] The POC A BE) system which ge nerated this result transmit matteo reference range : <=2. The reference range was not used to interpr et this result as miesha l/abnormal. [facility] CenterUmkjyayFVRRWGJIK6298-64-76 20:52:00 Test Item Value Reference Range Interpretation Comments POC A PCO2 (test code = POC A PCO2) 45 35-45 N [facility] CenterEfocijvERRRPHMWA9371-46-39 20:52:00 Test Item Value Reference Range Interpretation Comments POC A HCO3 (test code = POC A HCO3) 28 22-26 H [facility] CenterMltgzogGSTDUTUWC6590-13-26 20:52:00 Test Item Value Reference Range Interpretation Comments POC A Hct (test code = POC A Hct) 24.0 36.0-48.0 L [facility] CenterJxwljjqLAULXTRGY1146-78-70 20:52:00 Test Item Value Reference Range Interpretation Comments POC A Na (test code = POC A Na) 139 135-145 N [facility] CenterPnsglluKNQIRMJOY8108-73-87 20:52:00 Test Item Value Reference Range Interpretation Comments POC A Temp (test code = POC A Temp) 37.0 [facility] CenterMtzslaeVITZAMAQV4574-36-87 20:52:00 Test Item Value Reference Range Interpretation Comments POC A O2 Sat (test code = POC A O2 Sat) 100.0 95.0-100.0 N [facility] ArlingtonLpeoxhtRXYXHEGNC0988-03-08 20:52:00 Test Item Value Reference Range Interpretation Comments POC A Source (test code = POC A Source) ART [facility] CenterUnazjlkWNXKMWQNC4636-98-67 20:52:00 Test Item Value Reference Range Interpretation Comments POC A K (test code = POC A K) 3.8 3.5-5.1 N [facility] CenterNbkttqnUWDTYBELU5716-34-54 20:52:00 Test Item Value Reference Range Interpretation Comments POC A Ca Ion (test code = POC A Ca Ion) 0.97 1.05-1.25 L [facility] CenterGoqihumEMAXOAJUY0010-21-62 20:52:00 Test Item Value Reference Range Interpretation Comments POC A Glu (test code = POC A Glu) 150 70-99 H [facility] CenterYxvnuzkJESAPDTUH5661-60-20 20:52:00 Test Item Value Reference Range Interpretation Comments POC A PO2 (test code = POC A PO2) 362 80-100 H [facility] CenterCgfepqjOPYKARJMD0777-81-26 20:52:00 Test Item Value Reference Range Interpretation Comments POC A pH (test code = POC A pH) 7.40 7.35-7.45 N [facility] CenterBhlxmfhGWWAWDYDX4688-68-17 20:52:00 Test Item Value Reference Range Interpretation Comments POC A BE (test code = 3 See_Comment H [Auto mated message] The POC A BE) system which ge nerated this result transmit matteo reference range : <=2. The reference range was not used to interpr et this result as miesha l/abnormal. [facility] CenterBqddchzMIWJOCOUG6066-20-91 20:52:00 Test Item Value Reference Range Interpretation Comments POC A PCO2 (test code = POC A PCO2) 45 35-45 N [facility] CenterGtwntkbGUCFCWIYR3289-75-38 20:52:00 Test Item Value Reference Range Interpretation Comments POC A HCO3 (test code = POC A HCO3) 28 22-26 H [facility] CenterBersfjqLHTCDLGAB0234-68-29 20:52:00 Test Item Value Reference Range Interpretation Comments POC A Hct (test code = POC A Hct) 24.0 36.0-48.0 L [facility] CenterQkxkavmCBEWYPVVP8674-01-40 20:52:00 Test Item Value Reference Range Interpretation Comments POC A Na (test code = POC A Na) 139 135-145 N [facility] CenterWjrckfkPTVDMFGHQ1882-37-04 20:52:00 Test Item Value Reference Range Interpretation Comments POC A Temp (test code = POC A Temp) 37.0 [facility] CenterCtfscpeFIRBAILEV5003-36-76 20:52:00 Test Item Value Reference Range Interpretation Comments POC A O2 Sat (test code = POC A O2 Sat) 100.0 95.0-100.0 N [facility] CenterBkmdripPNSSQSKVW3833-12-85 20:52:00 Test Item Value Reference Range Interpretation Comments POC A Source (test code = POC A Source) ART [facility] CenterAkjjgkhNWBTMTKYV3496-61-13 20:52:00 Test Item Value Reference Range Interpretation Comments POC A K (test code = POC A K) 3.8 3.5-5.1 N [facility] CenterHrwzhzuWIHIYMWTI9700-49-41 20:52:00 Test Item Value Reference Range Interpretation Comments POC A Ca Ion (test code = POC A Ca Ion) 0.97 1.05-1.25 L [facility] CenterLpucmmjAUDPTBIGQ1184-18-41 20:52:00 Test Item Value Reference Range Interpretation Comments POC A Glu (test code = POC A Glu) 150 70-99 H [facility] EFCWKAE4431-82-56 20:20:00 Test Item Value Reference Range Interpretation Comments FFP product (test code Product available N = FFP product) (02/21/2013 15:20:00) [facility] [id number] 20:20:00 Test Item Value Reference Range Interpretation Comments Platelet product (test Product available N code = Platelet (02/21/2013 15:20:00) product) [facility] [id number] 20:20:00 Test Item Value Reference Range Interpretation Comments FFP product (test code Product available N = FFP product) (02/21/2013 15:20:00) [facility] [id number] 20:20:00 Test Item Value Reference Range Interpretation Comments Platelet product (test Product available N code = Platelet (02/21/2013 15:20:00) product) [facility] [id number] 20:20:00 Test Item Value Reference Range Interpretation Comments FFP product (test code Product available N = FFP product) (02/21/2013 15:20:00) [facility] [id number] 20:20:00 Test Item Value Reference Range Interpretation Comments Platelet product (test Product available N code = Platelet (02/21/2013 15:20:00) product) [facility] [id number] 20:20:00 Test Item Value Reference Range Interpretation Comments FFP product (test code Product available N = FFP product) (02/21/2013 15:20:00) [facility] [id number] 20:20:00 Test Item Value Reference Range Interpretation Comments Platelet product (test Product available N code = Platelet (02/21/2013 15:20:00) product) [facility] [id number] 20:20:00 Test Item Value Reference Range Interpretation Comments FFP product (test code Product available N = FFP product) (02/21/2013 15:20:00) [facility] [id number] 20:20:00 Test Item Value Reference Range Interpretation Comments Platelet product (test Product available N code = Platelet (02/21/2013 15:20:00) product) [facility] [id number] 20:20:00 Test Item Value Reference Range Interpretation Comments FFP product (test code Product available N = FFP product) (02/21/2013 15:20:00) [facility] [id number] 20:20:00 Test Item Value Reference Range Interpretation Comments Platelet product (test Product available N code = Platelet (02/21/2013 15:20:00) product) [facility] [id number] 20:06:00 Test Item Value Reference Range Interpretation Comments Platelet product (test Product available N code = Platelet (02/21/2013 15:06:00) product) [facility] [id number] 20:06:00 Test Item Value Reference Range Interpretation Comments Platelet product (test Product available N code = Platelet (02/21/2013 15:06:00) product) [facility] [id number] 20:06:00 Test Item Value Reference Range Interpretation Comments Platelet product (test Product available N code = Platelet (02/21/2013 15:06:00) product) [facility] [id number] 20:06:00 Test Item Value Reference Range Interpretation Comments Platelet product (test Product available N code = Platelet (02/21/2013 15:06:00) product) [facility] [id number] 20:06:00 Test Item Value Reference Range Interpretation Comments Platelet product (test Product available N code = Platelet (02/21/2013 15:06:00) product) [facility] [id number] 20:06:00 Test Item Value Reference Range Interpretation Comments Platelet product (test Product available N code = Platelet (02/21/2013 15:06:00) product) [facility] [id number] 15:46:00 Test Item Value Reference Range Interpretation Comments FFP product (test code Product available N = FFP product) (02/21/2013 10:46:00) [facility] [id number] 15:46:00 Test Item Value Reference Range Interpretation Comments FFP product (test code Product available N = FFP product) (02/21/2013 10:46:00) [facility] [id number] 15:46:00 Test Item Value Reference Range Interpretation Comments FFP product (test code Product available N = FFP product) (02/21/2013 10:46:00) [facility] [id number] 15:46:00 Test Item Value Reference Range Interpretation Comments FFP product (test code Product available N = FFP product) (02/21/2013 10:46:00) [facility] [id number] 15:46:00 Test Item Value Reference Range Interpretation Comments FFP product (test code Product available N = FFP product) (02/21/2013 10:46:00) [facility] [id number] 15:46:00 Test Item Value Reference Range Interpretation Comments FFP product (test code Product available N = FFP product) (02/21/2013 10:46:00) [facility]SgwxsowLIODUPMOLU7080-03-09 19:43:34 Test Item Value Reference Range Interpretation Comments UA Urobilinogen (test code = UA no gt 0.1-1.0 Urobilinogen) [facility] HospitalOlgouroOQHNDHEEYM5626-25-08 19:43:34 Test Item Value Reference Range Interpretation Comments UA Leuk Est (test Negative (02/20/2013 N code = UA Leuk Est) 14:43:34) [facility] HospitalEvahukjYJWKVNCRNM4006-75-10 19:43:34 Test Item Value Reference Range Interpretation Comments UA Nitrite (test code Negative (02/20/2013 N = UA Nitrite) 14:43:34) [facility]DsorgzmOGTLMWQHWF2211-74-54 19:43:34 Test Item Value Reference Range Interpretation Comments UA Glucose (test code Negative mg/dL = UA Glucose) *NA*(02/20/2013 14:43:34) [facility]woodYrqzsdaFHCYZFETYB8112-18-61 19:43:34 Test Item Value Reference Range Interpretation Comments UA Protein (test code Negative mg/dL N = UA Protein) (02/20/2013 14:43:34) [facility] HospitalKzommcqLLZGKMBRDD8877-55-35 19:43:34 Test Item Value Reference Range Interpretation Comments UA Blood (test code = Trace *ABN*(02/20/2013 A UA Blood) 14:43:34) [facility] HospitalCbaafxyCCMYLCNBUF6451-22-47 19:43:34 Test Item Value Reference Range Interpretation Comments UA Bili (test code = Negative *NA*(02/20/2013 UA Bili) 14:43:34) [facility] HospitalVqfomqnFFLYIBCUXR6778-18-80 19:43:34 Test Item Value Reference Range Interpretation Comments UA Spec Grav (test code = UA Spec Grav) 1.009 N [facility] HospitalZdkltkvLBVYRBGSFL3932-19-65 19:43:34 Test Item Value Reference Range Interpretation Comments UA Turbidity (test code = Clear (02/20/2013 N UA Turbidity) 14:43:34) [facility] HospitalRapbkbtWSBMSMKSLO4934-66-86 19:43:34 Test Item Value Reference Range Interpretation Comments UA pH (test code = UA pH) 6.0 5.0-8.0 N [facility] HospitalXlidtimSHTHKBLSRX2655-83-33 19:43:34 Test Item Value Reference Range Interpretation Comments UA Ketones (test code Negative mg/dL = UA Ketones) *NA*(02/20/2013 14:43:34) [facility] HospitalMnsrxilHAMJHWMLVW3949-05-65 19:43:34 Test Item Value Reference Range Interpretation Comments UA RBC (test code = 1 See_Comment N [Automa matteo message] The UA RBC) system which ge nerated this result transmit matteo reference range : <=2. The reference range was not used to interpr et this result as miesha l/abnormal. [facility] HospitalIjrfptlNTLPDGSAYF4889-81-15 19:43:34 Test Item Value Reference Range Interpretation Comments UA Sq Epi (test code = Few /LPF UA Sq Epi) *NA*(02/20/2013 14:43:34) [facility] HospitalWznekmtXNYEURSKFM6157-12-71 19:43:34 Test Item Value Reference Range Interpretation Comments UA Bacteria (test code Occasional /HPF = UA Bacteria) *NA*(02/20/2013 14:43:34) [facility] HospitalNglwpgeWLZIZTBVBF4905-85-08 19:43:34 Test Item Value Reference Range Interpretation Comments UA Color (test code = Colorless UA Color) *NA*(02/20/2013 14:43:34) [facility] HospitalSplnbkdDHWJUFBDPB1153-28-02 19:43:34 Test Item Value Reference Range Interpretation Comments UA Urobilinogen (test code = UA no gt 0.1-1.0 Urobilinogen) [facility] HospitalQiwpfbzUYQMFANLGQ5780-51-49 19:43:34 Test Item Value Reference Range Interpretation Comments UA Leuk Est (test Negative (02/20/2013 N code = UA Leuk Est) 14:43:34) [facility] HospitalBrpacfyVYXGPJOYPJ3921-30-83 19:43:34 Test Item Value Reference Range Interpretation Comments UA Nitrite (test code Negative (02/20/2013 N = UA Nitrite) 14:43:34) [facility] HospitalKxofbsyJTGRZSSXLM7195-60-98 19:43:34 Test Item Value Reference Range Interpretation Comments UA Glucose (test code Negative mg/dL = UA Glucose) *NA*(02/20/2013 14:43:34) [facility] HospitalPppvkrmIYOHQESUJA5030-75-05 19:43:34 Test Item Value Reference Range Interpretation Comments UA Protein (test code Negative mg/dL N = UA Protein) (02/20/2013 14:43:34) [facility] HospitalTpalzsoBNAGQEKRAY5589-62-25 19:43:34 Test Item Value Reference Range Interpretation Comments UA Blood (test code = Trace *ABN*(02/20/2013 A UA Blood) 14:43:34) [facility] HospitalKgqtljpSDDKSZHDAH1306-12-01 19:43:34 Test Item Value Reference Range Interpretation Comments UA Bili (test code = Negative *NA*(02/20/2013 UA Bili) 14:43:34) [facility] HospitalEdrsomkSIFGVUWBTH3041-36-35 19:43:34 Test Item Value Reference Range Interpretation Comments UA Spec Grav (test code = UA Spec Grav) 1.009 N [facility] HospitalZegasinLRWEHKGYYV5189-36-84 19:43:34 Test Item Value Reference Range Interpretation Comments UA Turbidity (test code = Clear (02/20/2013 N UA Turbidity) 14:43:34) [facility] HospitalSrreyefWJZJUQJMHB9945-67-68 19:43:34 Test Item Value Reference Range Interpretation Comments UA pH (test code = UA pH) 6.0 5.0-8.0 N [facility] HospitalTyycdicTYKABPQEYX9219-95-10 19:43:34 Test Item Value Reference Range Interpretation Comments UA Ketones (test code Negative mg/dL = UA Ketones) *NA*(02/20/2013 14:43:34) [facility] HospitalSwtoqcgKJNNESDGIW7802-98-77 19:43:34 Test Item Value Reference Range Interpretation Comments UA RBC (test code = 1 See_Comment N [Automa matteo message] The UA RBC) system which ge nerated this result transmit matteo reference range : <=2. The reference range was not used to interpr et this result as miesha l/abnormal. [facility] HospitalDhvympvDTAARUFINE6443-20-35 19:43:34 Test Item Value Reference Range Interpretation Comments UA Sq Epi (test code = Few /LPF UA Sq Epi) *NA*(02/20/2013 14:43:34) [facility] HospitalIjlbzsbUFBVSABYJX7507-59-68 19:43:34 Test Item Value Reference Range Interpretation Comments UA Bacteria (test code Occasional /HPF = UA Bacteria) *NA*(02/20/2013 14:43:34) [facility] HospitalAgbonfdUOTNGKVCQT0997-23-05 19:43:34 Test Item Value Reference Range Interpretation Comments UA Color (test code = Colorless UA Color) *NA*(02/20/2013 14:43:34) [facility] HospitalNitsalgRUWNZCVTDJ8279-09-68 19:43:34 Test Item Value Reference Range Interpretation Comments UA Urobilinogen (test code = UA no gt 0.1-1.0 Urobilinogen) [facility] HospitalTwkamgfLJUDZBGMZW0431-70-74 19:43:34 Test Item Value Reference Range Interpretation Comments UA Leuk Est (test Negative (02/20/2013 N code = UA Leuk Est) 14:43:34) [facility] HospitalAxazqceBERUJXXBKZ0344-34-63 19:43:34 Test Item Value Reference Range Interpretation Comments UA Nitrite (test code Negative (02/20/2013 N = UA Nitrite) 14:43:34) [facility] HospitalBafjkqtHISQXQSJBW0204-08-73 19:43:34 Test Item Value Reference Range Interpretation Comments UA Glucose (test code Negative mg/dL = UA Glucose) *NA*(02/20/2013 14:43:34) [facility] HospitalWzynkcsIQRYGHGEIA3151-12-03 19:43:34 Test Item Value Reference Range Interpretation Comments UA Protein (test code Negative mg/dL N = UA Protein) (02/20/2013 14:43:34) [facility]woodPuirdasMCFIKVUVEA6934-98-16 19:43:34 Test Item Value Reference Range Interpretation Comments UA Blood (test code = Trace *ABN*(02/20/2013 A UA Blood) 14:43:34) [facility] BrownwoodQvbwhokSZNITPDLEQ5760-44-45 19:43:34 Test Item Value Reference Range Interpretation Comments UA Bili (test code = Negative *NA*(02/20/2013 UA Bili) 14:43:34) [facility] BrownwoodUreeylyKXYUGNKDWM5188-74-10 19:43:34 Test Item Value Reference Range Interpretation Comments UA Spec Grav (test code = UA Spec Grav) 1.009 N [facility] BrownwoodAjrxuhiYSETKRIUMM6606-22-44 19:43:34 Test Item Value Reference Range Interpretation Comments UA Turbidity (test code = Clear (02/20/2013 N UA Turbidity) 14:43:34) [facility] BrownwoodRxcsnmvNVMUYHOCYV3088-31-93 19:43:34 Test Item Value Reference Range Interpretation Comments UA pH (test code = UA pH) 6.0 5.0-8.0 N [facility] BrownwoodGgdhcqsOCUHIMNAQX8400-68-81 19:43:34 Test Item Value Reference Range Interpretation Comments UA Ketones (test code Negative mg/dL = UA Ketones) *NA*(02/20/2013 14:43:34) [facility] HospitalVcagwmrKKAHBMRFVX7955-23-02 19:43:34 Test Item Value Reference Range Interpretation Comments UA RBC (test code = 1 See_Comment N [Automa matteo message] The UA RBC) system which ge nerated this result transmit matteo reference range : <=2. The reference range was not used to interpr et this result as miesha l/abnormal. [facility] BrownwoodQkwpbicZZSHDDHRGR4084-51-71 19:43:34 Test Item Value Reference Range Interpretation Comments UA Sq Epi (test code = Few /LPF UA Sq Epi) *NA*(02/20/2013 14:43:34) [facility] BrownwoodSeooqqwGCHCFWWQXU0311-89-83 19:43:34 Test Item Value Reference Range Interpretation Comments UA Bacteria (test code Occasional /HPF = UA Bacteria) *NA*(02/20/2013 14:43:34) [facility] HospitalUgymxthEGZMKAWOXV6090-86-37 19:43:34 Test Item Value Reference Range Interpretation Comments UA Color (test code = Colorless UA Color) *NA*(02/20/2013 14:43:34) [facility] HospitalGpwagssWXMEYVVOGS1692-98-53 19:43:34 Test Item Value Reference Range Interpretation Comments UA Urobilinogen (test code = UA no gt 0.1-1.0 Urobilinogen) [facility] HospitalSxkszxsIAPNWLYMDS1381-55-61 19:43:34 Test Item Value Reference Range Interpretation Comments UA Leuk Est (test Negative (02/20/2013 N code = UA Leuk Est) 14:43:34) [facility] HospitalDsehudjMYJMEBQPPZ2722-50-88 19:43:34 Test Item Value Reference Range Interpretation Comments UA Nitrite (test code Negative (02/20/2013 N = UA Nitrite) 14:43:34) [facility] HospitalKmuqfgaLKTCPNQBYI2799-66-94 19:43:34 Test Item Value Reference Range Interpretation Comments UA Glucose (test code Negative mg/dL = UA Glucose) *NA*(02/20/2013 14:43:34) [facility] HospitalFgpwubvMXMYSZBTRH2908-95-01 19:43:34 Test Item Value Reference Range Interpretation Comments UA Protein (test code Negative mg/dL N = UA Protein) (02/20/2013 14:43:34) [facility] HospitalVcytiymFWFWORRLPR4375-41-07 19:43:34 Test Item Value Reference Range Interpretation Comments UA Blood (test code = Trace *ABN*(02/20/2013 A UA Blood) 14:43:34) [facility] HospitalFjkyvwzOSBQBCAAUA5649-53-44 19:43:34 Test Item Value Reference Range Interpretation Comments UA Bili (test code = Negative *NA*(02/20/2013 UA Bili) 14:43:34) [facility] HospitalElwrbjkZQIDCUKFXU1598-48-61 19:43:34 Test Item Value Reference Range Interpretation Comments UA Spec Grav (test code = UA Spec Grav) 1.009 N [facility] HospitalMvegqjiDRIHLNLLRH1121-94-02 19:43:34 Test Item Value Reference Range Interpretation Comments UA Turbidity (test code = Clear (02/20/2013 N UA Turbidity) 14:43:34) [facility] HospitalXmsahudAVYPPTDWHY5300-41-98 19:43:34 Test Item Value Reference Range Interpretation Comments UA pH (test code = UA pH) 6.0 5.0-8.0 N [facility] HospitalBkrndiqBTDAQBBYKN8753-27-95 19:43:34 Test Item Value Reference Range Interpretation Comments UA Ketones (test code Negative mg/dL = UA Ketones) *NA*(02/20/2013 14:43:34) [facility] HospitalDtjbbkwIBDTEXXFUC7257-16-67 19:43:34 Test Item Value Reference Range Interpretation Comments UA RBC (test code = 1 See_Comment N [Automa matteo message] The UA RBC) system which ge nerated this result transmit matteo reference range : <=2. The reference range was not used to interpr et this result as miesha l/abnormal. [facility] HospitalEiewnvxREKLZXNXJF3970-78-99 19:43:34 Test Item Value Reference Range Interpretation Comments UA Sq Epi (test code = Few /LPF UA Sq Epi) *NA*(02/20/2013 14:43:34) [facility] HospitalTilgkyaROMBHTRJGO9600-63-31 19:43:34 Test Item Value Reference Range Interpretation Comments UA Bacteria (test code Occasional /HPF = UA Bacteria) *NA*(02/20/2013 14:43:34) [facility] HospitalEyrouvmLHGSNZONCP3941-73-11 19:43:34 Test Item Value Reference Range Interpretation Comments UA Color (test code = Colorless UA Color) *NA*(02/20/2013 14:43:34) [facility] HospitalZqmdehcZCQFBHKFAT4005-28-57 19:43:34 Test Item Value Reference Range Interpretation Comments UA Urobilinogen (test code = UA no gt 0.1-1.0 Urobilinogen) [facility] HospitalGgkkbuuGECBFLWZIK5467-19-43 19:43:34 Test Item Value Reference Range Interpretation Comments UA Leuk Est (test Negative (02/20/2013 N code = UA Leuk Est) 14:43:34) [facility] HospitalLeqwajvRYBAZASQBR0945-93-70 19:43:34 Test Item Value Reference Range Interpretation Comments UA Nitrite (test code Negative (02/20/2013 N = UA Nitrite) 14:43:34) [facility] HospitalIywmfwpTBVUAPUOZT6951-34-43 19:43:34 Test Item Value Reference Range Interpretation Comments UA Glucose (test code Negative mg/dL = UA Glucose) *NA*(02/20/2013 14:43:34) [facility] HospitalTowzixoMQZBSGPMXM6001-99-60 19:43:34 Test Item Value Reference Range Interpretation Comments UA Protein (test code Negative mg/dL N = UA Protein) (02/20/2013 14:43:34) [facility] HospitalNqyknwiSJHVOYELSJ6152-42-52 19:43:34 Test Item Value Reference Range Interpretation Comments UA Blood (test code = Trace *ABN*(02/20/2013 A UA Blood) 14:43:34) [facility] HospitalDcxqkbkVMXPUTDVMB8693-05-42 19:43:34 Test Item Value Reference Range Interpretation Comments UA Bili (test code = Negative *NA*(02/20/2013 UA Bili) 14:43:34) [facility] HospitalYyqtlgtVWSVEBYLDT2081-15-38 19:43:34 Test Item Value Reference Range Interpretation Comments UA Spec Grav (test code = UA Spec Grav) 1.009 N [facility] HospitalXkoapkdVYPYJNVMRS8077-33-56 19:43:34 Test Item Value Reference Range Interpretation Comments UA Turbidity (test code = Clear (02/20/2013 N UA Turbidity) 14:43:34) [facility] HospitalJtudsozVXQCTRKQLM3060-60-30 19:43:34 Test Item Value Reference Range Interpretation Comments UA pH (test code = UA pH) 6.0 5.0-8.0 N [facility] HospitalVnohjgoUQPDDDFYXF8046-30-36 19:43:34 Test Item Value Reference Range Interpretation Comments UA Ketones (test code Negative mg/dL = UA Ketones) *NA*(02/20/2013 14:43:34) [facility] HospitalFkyrqolDLYSWUPRVO1954-92-23 19:43:34 Test Item Value Reference Range Interpretation Comments UA RBC (test code = 1 See_Comment N [Automa matteo message] The UA RBC) system which ge nerated this result transmit matteo reference range : <=2. The reference range was not used to interpr et this result as miesha l/abnormal. [facility] HospitalHedaovnVEXYTQMGJZ8080-11-79 19:43:34 Test Item Value Reference Range Interpretation Comments UA Sq Epi (test code = Few /LPF UA Sq Epi) *NA*(02/20/2013 14:43:34) [facility] HospitalKfdjqziTIYYWZCYHI1098-19-91 19:43:34 Test Item Value Reference Range Interpretation Comments UA Bacteria (test code Occasional /HPF = UA Bacteria) *NA*(02/20/2013 14:43:34) [facility] HospitalOcgfhqyWXRWUIAOFJ5404-80-78 19:43:34 Test Item Value Reference Range Interpretation Comments UA Color (test code = Colorless UA Color) *NA*(02/20/2013 14:43:34) [facility] HospitalTtregogYKYSELOLVG6312-25-50 19:43:34 Test Item Value Reference Range Interpretation Comments UA Urobilinogen (test code = UA no gt 0.1-1.0 Urobilinogen) [facility] HospitalHyoxmlcFEVXGYCOBC1535-46-19 19:43:34 Test Item Value Reference Range Interpretation Comments UA Leuk Est (test Negative (02/20/2013 N code = UA Leuk Est) 14:43:34) [facility] HospitalUbmmtzwNMMETVPVHT6808-58-62 19:43:34 Test Item Value Reference Range Interpretation Comments UA Nitrite (test code Negative (02/20/2013 N = UA Nitrite) 14:43:34) [facility] HospitalZayxevoXCAPQEAQZR1244-64-61 19:43:34 Test Item Value Reference Range Interpretation Comments UA Glucose (test code Negative mg/dL = UA Glucose) *NA*(02/20/2013 14:43:34) [facility] HospitalQawdkidKIXVFNWPPN7561-62-16 19:43:34 Test Item Value Reference Range Interpretation Comments UA Protein (test code Negative mg/dL N = UA Protein) (02/20/2013 14:43:34) [facility] HospitalZjtzwemCACMNXQVLN1616-59-98 19:43:34 Test Item Value Reference Range Interpretation Comments UA Blood (test code = Trace *ABN*(02/20/2013 A UA Blood) 14:43:34) [facility] HospitalXswjtdpEIOLCGJUYJ4715-00-24 19:43:34 Test Item Value Reference Range Interpretation Comments UA Bili (test code = Negative *NA*(02/20/2013 UA Bili) 14:43:34) [facility] HospitalWwkqnnrASGLMAHXZO4483-08-91 19:43:34 Test Item Value Reference Range Interpretation Comments UA Spec Grav (test code = UA Spec Grav) 1.009 N [facility] HospitalDfvexmjNTOZMLMOTK8082-87-56 19:43:34 Test Item Value Reference Range Interpretation Comments UA Turbidity (test code = Clear (02/20/2013 N UA Turbidity) 14:43:34) [facility]woodIwoqfdkNYWRLWQRUW1573-95-78 19:43:34 Test Item Value Reference Range Interpretation Comments UA pH (test code = UA pH) 6.0 5.0-8.0 N [facility]woodKfitwaqDDVIQOUTOG6631-35-94 19:43:34 Test Item Value Reference Range Interpretation Comments UA Ketones (test code Negative mg/dL = UA Ketones) *NA*(02/20/2013 14:43:34) [facility] HospitalAobaebaKGGFOPCLGS2169-55-57 19:43:34 Test Item Value Reference Range Interpretation Comments UA RBC (test code = 1 See_Comment N [Automa matteo message] The UA RBC) system which ge nerated this result transmit matteo reference range : <=2. The reference range was not used to interpr et this result as miesha l/abnormal. [facility] HospitalMfpyzlcLDZMYFGWSS1041-84-56 19:43:34 Test Item Value Reference Range Interpretation Comments UA Sq Epi (test code = Few /LPF UA Sq Epi) *NA*(02/20/2013 14:43:34) [facility]woodRpemlukETBCSUIEXB5435-92-99 19:43:34 Test Item Value Reference Range Interpretation Comments UA Bacteria (test code Occasional /HPF = UA Bacteria) *NA*(02/20/2013 14:43:34) [facility]woodUpulbdvONDIRBNYJR9786-71-70 19:43:34 Test Item Value Reference Range Interpretation Comments UA Color (test code = Colorless UA Color) *NA*(02/20/2013 14:43:34) [facility] [id number] 19:11:48 Test Item Value Reference Range Interpretation Comments MRSA by PCR (test Negative 1(02/20/2013 N code = MRSA by PCR) 14:11:48) [facility] - JTFXHRXG3424-28-68 19:11:48 Test Item Value Reference Range Interpretation Comments MRSA by PCR (test Negative 1(02/20/2013 N code = MRSA by PCR) 14:11:48) [facility] - [id number] 19:11:48 Test Item Value Reference Range Interpretation Comments MRSA by PCR (test Negative 1(02/20/2013 N code = MRSA by PCR) 14:11:48) [facility] - [id number] 19:11:48 Test Item Value Reference Range Interpretation Comments MRSA by PCR (test Negative 1(02/20/2013 N code = MRSA by PCR) 14:11:48) [facility] - [id number] 19:11:48 Test Item Value Reference Range Interpretation Comments MRSA by PCR (test Negative 1(02/20/2013 N code = MRSA by PCR) 14:11:48) [facility] - [id number] 19:11:48 Test Item Value Reference Range Interpretation Comments MRSA by PCR (test Negative 1(02/20/2013 N code = MRSA by PCR) 14:11:48) [facility]UlftddhWQZNDSXFPC8003-08-97 19:11:39 Test Item Value Reference Range Interpretation Comments Plav Effect Plt (test code = Plav 303 Effect Plt) [facility] HospitalJubxncaQBCNBTLKMP6088-36-21 19:11:39 Test Item Value Reference Range Interpretation Comments Plav Effect Plt (test code = Plav 303 Effect Plt) [facility] HospitalXavsxvzFFQRLCTZGZ6443-80-76 19:11:39 Test Item Value Reference Range Interpretation Comments Plav Effect Plt (test code = Plav 303 Effect Plt) [facility] HospitalEavjfxtLURUFJOXBD4801-43-43 19:11:39 Test Item Value Reference Range Interpretation Comments Plav Effect Plt (test code = Plav 303 Effect Plt) [facility] HospitalBtwujlcNYTHYVPKHP0828-27-30 19:11:39 Test Item Value Reference Range Interpretation Comments Plav Effect Plt (test code = Plav 303 Effect Plt) [facility] HospitalOdtqiqcXSXTISGJPF2160-48-67 19:11:39 Test Item Value Reference Range Interpretation Comments Plav Effect Plt (test code = Plav 303 Effect Plt) [facility] YQVJKLY0608-27-39 19:11:00 Test Item Value Reference Range Interpretation Comments Antibody Scrn (test Negative (02/20/2013 N code = Antibody Scrn) 14:11:00) [facility] [id number] 19:11:00 Test Item Value Reference Range Interpretation Comments ABO/Rh (test code = ABO/Rh) A POS [facility] HospitalKvekhxaQZXAETNCEV5719-44-46 19:11:00 Test Item Value Reference Range Interpretation Comments Macrocyte (test code = 1+ *ABN*(02/20/2013 A Macrocyte) 14:11:00) [facility] [id number] 19:11:00 Test Item Value Reference Range Interpretation Comments Antibody Scrn (test Negative (02/20/2013 N code = Antibody Scrn) 14:11:00) [facility] [id number] 19:11:00 Test Item Value Reference Range Interpretation Comments ABO/Rh (test code = ABO/Rh) A POS [facility] HospitalSkjovlrMJAXPYPWSS6820-42-44 19:11:00 Test Item Value Reference Range Interpretation Comments Macrocyte (test code = 1+ *ABN*(02/20/2013 A Macrocyte) 14:11:00) [facility] [id number] 19:11:00 Test Item Value Reference Range Interpretation Comments Antibody Scrn (test Negative (02/20/2013 N code = Antibody Scrn) 14:11:00) [facility] [id number] 19:11:00 Test Item Value Reference Range Interpretation Comments ABO/Rh (test code = ABO/Rh) A POS [facility] HospitalYowtyjlYMIOYLDZQV7159-86-78 19:11:00 Test Item Value Reference Range Interpretation Comments Macrocyte (test code = 1+ *ABN*(02/20/2013 A Macrocyte) 14:11:00) [facility] [id number] 19:11:00 Test Item Value Reference Range Interpretation Comments Antibody Scrn (test Negative (02/20/2013 N code = Antibody Scrn) 14:11:00) [facility] [id number] 19:11:00 Test Item Value Reference Range Interpretation Comments ABO/Rh (test code = ABO/Rh) A POS [facility] HospitalErvwgplQZGAQGBHEV4849-59-03 19:11:00 Test Item Value Reference Range Interpretation Comments Macrocyte (test code = 1+ *ABN*(02/20/2013 A Macrocyte) 14:11:00) [facility] [id number] 19:11:00 Test Item Value Reference Range Interpretation Comments Antibody Scrn (test Negative (02/20/2013 N code = Antibody Scrn) 14:11:00) [facility] [employer] [id number] 19:11:00 Test Item Value Reference Range Interpretation Comments ABO/Rh (test code = ABO/Rh) A POS [id number] 19:11:00 Test Item Value Reference Range Interpretation Comments Macrocyte (test code = 1+ *ABN*(02/20/2013 A Macrocyte) 14:11:00) [facility] [id number] 19:11:00 Test Item Value Reference Range Interpretation Comments Antibody Scrn (test Negative (02/20/2013 N code = Antibody Scrn) 14:11:00) [facility] [id number] 19:11:00 Test Item Value Reference Range Interpretation Comments ABO/Rh (test code = ABO/Rh) [id number] 19:11:00 Test Item Value Reference Range Interpretation Comments Macrocyte (test code = 1+ *ABN*(02/20/2013 A Macrocyte) 14:11:00) [facility]
[2023-05-25 19:54] LABS: Absolute Lymphocytes (CBC) 2.1 K/uL (0.7-4.9); Hematocrit 33.4 % (36.0-45.0); Lymphocytes % 23.9 % (15.3-44.8); MCV 97.5 fL (80-100); MPV 7.3 fL (7.6-11.3); Platelets 193 thou/uL (152-406); RBC Red Blood Cell Count 3.42 M/uL (3.86-4.86)
[2023-05-25] MEDS ORDERED: CLOPIDOGREL 75 MG TABLET ONE (19:57)
[2023-05-25] MEDS ORDERED: ASPIRIN EC 81 MG TAB PO ONE (19:57)
[2023-05-25] MEDS ORDERED: NA CHLORIDE 0.9% 1,000 ML ONE (19:58)
[2023-05-25] MEDS ORDERED: FOLIC ACID 5 MG/ML VIAL ONE (19:58)
[2023-05-25 20:02] LABS: Specific Gravity 1.009 (1.005-1.030); Urine Bacteria <20 /HPF (<20); Urine Bilirubin NEGATIVE (Negative); Urine Blood Trace (Negative); Urine Clarity Clear (Clear); Urine Color Colorless (Yellow); Urine Glucose NEGATIVE (Negative); Urine Protein 1+ (Negative); Urine RBC <5 /HPF (None Seen); Urine Urobilinogen Normal (Normal); Urine pH 6.5 (5.0-7.0)
[2023-05-25 20:08] LABS: Protime INR 1.03
[2023-05-25 20:15] LABS: ALT/SGPT 27 U/L (13-56); AST/SGOT 24 U/L (15-37); Albumin 4.1 g/dL (3.4-5.0); Alkaline Phosphatase 64 U/L (45-117); Bilirubin Total 0.4 mg/dL (0.2-1.0); Lipase 30 U/L (13-75); Magnesium 2.4 mg/dL (1.6-2.4); NT PRO-BNP 481 pg/mL (<125); Potassium 4.2 mEq/L (3.5-5.1); Protein, Total 7.7 g/dL (6.4-8.2)
--- NOTE | 2023-05-25 20:29 | RAD REPORT ---
EXAM DESCRIPTION: Lexa Single View05/25/2023 7:43 pm CLINICAL HISTORY: Syncope. History of CHF and hypertension. MD discretion COMPARISON: Chest Pa And Lat (2 Views) dated 08/06/2022; Chest Pa And Lat (2 Views) dated 12/17/2015 TECHNIQUE: Portable AP view of the chest. FINDINGS: The lungs are clear. No pneumothorax or effusion. The cardiomediastinal contours are unch anged with sequelae of prior CABG and dense atherosclerotic calcifications at the aortic arch. IMPRESSION: No acute cardiopulmonary process. Stable findings as above.
[2023-05-25 20:32] LABS: Bilirubin Direct < 0.1 mg/dL (0-0.2); Bilirubin Indirect, Calculated ND mg/dL (0.2-0.8)
[2023-05-25 20:33] LABS: Troponin High Sensitivity 152.2 pg/mL (<58.9)
--- NOTE | 2023-05-25 20:33 | ER ---
Nurse's Notes [facility] Name: Cassie Huang Age: 73 yrs Sex: Female : 1950 Arrival Date: 05/25/2023 Time: 18:41 Bed 14 Private MD: Diagnosis: Syncope Near;Weakness;Non ST elevation NC;Occlusion and stenosis of left carotid artery-moderate to severe;Occlusion and stenosis of right carotid artery-less than 50% Presentation: 05/25 18:50 Ebola Screen: Patient denies travel to an Ebola-affected area in the 21 days before ll1 illness onset. 18:50 Acuity: ELIANE 2 ll1 18:50 Method Of Arrival: Wheelchair ll1 18:50 Chief complaint: Chief complaint: Pt's states "she looked like she was sleeping aa5 outside in the porch but she wasn't so I woke her up and she went inside the house but I heard a loud thump and she had fallen onto her back, she then started slurring and confused when she woke up". Pt takes Plavix. No slurring noted at this time. 18:50 Coronavirus screen: At this time, the client does not indicate any symptoms associated aa5 with coronavirus-19. No acute neurological deficit is noted. Pre-hospital glucose is not applicable to this patient. 18:50 Risk Assessment: Do you want to hurt yourself or someone else? Patient reports no aa5 desire to harm self or others. 19:10 Initial Sepsis Screen: Does the patient meet any 2 criteria? No. Patient's initial aa5 sepsis screen is negative. Does the patient have a suspected source of infection? No. Patient's initial sepsis screen is negative. Triage Assessment: 19:00 The onset of the patients symptoms was May 25, 2023 at 17:00. General: Appears in bp no apparent distress. comfortable, Behavior is calm, cooperative, appropriate for age. Neuro: Reports a syncopal episode. Stroke Activation: Symptom onset < 3 hours Physician: Stroke Attending; Name: ; Notified At: ; Arrived At: Physician: Chief Stroke Resident; Name: ; Notified At: ; Arrived At: Physician: Stroke Resident; Name: ; Notified At: ; Arrived At: Physician: ED Attending; Name: ; Notified At: ; Arrived At: Physician: ED Resident; Name: ; Notified At: ; Arrived At: Historical: - Allergies: 18:50 lactose (bulk); ll1 18:50 Levaquin; ll1 - PMHx: 18:50 High Cholesterol; CHF; Hypertension; Hypothyroidism; ll1 - PSHx: 18:50 Carotid endarterectomy; cataract repair; leg bypass; ll1 - Immunization history:: Adult Immunizations up to date. Screenin:26 [facility] ED Fall Risk Assessment (Adult) History of falling in the last 3 months, bp including since admission No falls in past 3 months (0 pts). Abuse screen: Denies threats or abuse. Denies injuries from another. Nutritional screening: No deficits noted. Tuberculosis screening: No symptoms or risk factors identified. Assessment: 18:50 Reassessment: Pt to CT via wheelchair, accompanied by me. . aa5 19:10 Reassessment: Pt back from CT, accompanied by me. . aa5 19:24 VAN Scoring: Arm Drift: Patients demonstrates NO arm weakness. Patient is VAN Negative. bp Becky Swallow Protocol Exclusion Criteria: Unable to remain alert for testing: No NPO for medical/surgical reason by provider order No Tracheostomy tube present No No thin liquids due to preexisting dysphagia/baseline modified diet thickened liquids No Exclusion Criteria Result: Proceed Brief Cognitive Screen What is your name? Normal, Where are you right now? Normal, What year is it? Normal. Oral Mechanism Examination Facial Symmetry: Normal, Motion: Normal, Lip Closure: Normal, Oral Mechanism Result: Normal. 3 oz Water Swallow Challenge: Pt able to drink all water without stopping, coughing, choking or throat clearing: Yes Result: PASS. TNKase (Tenecteplase) Screening: Contraindications: Rapidly improving condition or minor deficit: Yes. Pain: Denies pain. Neuro: Level of Consciousness is awake, alert, obeys commands, Oriented to Appropriate for age. Cardiovascular: Rhythm is sinus rhythm. 21:00 Neuro: Level of Consciousness is awake, alert, obeys commands, Oriented to Appropriate bp for age. 23:00 Reassessment: No changes from previously documented assessment. Patient is alert, bp oriented x 3, equal unlabored respirations, skin warm/dry/pink. 05/26 01:00 Reassessment: No changes from previously documented assessment. Patient is alert, bp oriented x 3, equal unlabored respirations, skin warm/dry/pink. Vital Signs: 05/25 19:00 BP 188 / 94; Pulse 87; Resp 13; Temp 98; Pulse Ox 100% ; bp 19:10 BP 189 / 84; Pulse 87; Resp 18 S; Temp 97.8(TE); Pulse Ox 100% on R/A; aa5 21:00 BP 178 / 93; Pulse 75; Resp 13; Pulse Ox 100% ; bp 23:00 BP 220 / 71; Pulse 79; Resp 15; Pulse Ox 100% ; bp 05/26 01:00 BP 195 / 59; Pulse 67; Resp 16; Pulse Ox 100% ; bp 03:00 BP 133 / 46; Pulse 63; Resp 16; Pulse Ox 97% ; bp NIH Stroke Scale Scores: 05/25 19:24 NIHSS Score: 0 bp 21:00 NIHSS Score: 0 bp ED Course: 18:46 Patient arrived in ED. mg5 18:49 Patient code stroke called. ll1 18:50 Triage completed. ll1 18:54 Jean Palm MD is Attending Physician. robin 19:00 Inserted saline lock: 22 gauge in right forearm, using aseptic technique. bp 19:04 CT Stroke Brain w/o Contrast In Process Unspecified. EDMS 19:06 Morales Lubin, RN is Primary Nurse. bp 19:26 Patient has correct armband on for positive identification. Bed in low position. Call bp light in reach. Side rails up X2. Adult w/ patient. 19:45 Stroke CXR 1 View In Process Unspecified. EDMS 20:32 Sumeet Brody MD is Hospitalizing Provider. robin 20:55 Brain Wo Cont In Process Unspecified. EDMS 21:04 CT Head Angio In Process Unspecified. EDMS 05/26 04:19 No provider procedures requiring assistance completed. Patient admitted, IV remains in bp place. Administered Medications: 05/25 18:58 CANCELLED (Duplicate Order): ns 0.9% 1000 ml IV at 1 bolus Per protocol; 1000 mL bolus robin 19:30 Drug: foLIC Acid IVPB 1 mg IVPB once Route: IVPB; Site: right antecubital; bp 05/26 04:11 Follow up: IV Status: Completed infusion bp 05/25 19:30 Drug: NS 0.9% IV 500 ml IV at bolus once Route: IV; Rate: bolus; Site: right forearm; bp 05/26 04:10 Follow up: IV Status: Completed infusion; IV Intake: 500ml bp 05/25 19:30 Drug: NS 0.9% IV 1000 ml IV at 125 ml/hr continuous Route: IV; Rate: 125 ml/hr; Site: bp right forearm; 05/26 04:10 Follow up: IV Status: Infusion continued upon admission bp 05/25 19:30 Drug: Clopidogrel PO 75 mg PO once Route: PO; bp 05/26 04:10 Follow up: Response: No adverse reaction bp 05/25 19:30 Drug: Aspirin PO 162 mg PO once Route: PO; bp 05/26 04:10 Follow up: Response: No adverse reaction bp 05/25 21:30 Drug: Metoprolol PO 25 mg PO once Route: PO; bp 05/26 04:10 Follow up: Response: No adverse reaction bp 05/25 21:30 Drug: Enoxaparin Sub-Q 60 mg Sub-Q once Route: Sub-Q; Site: left lower abdomen; bp 05/26 04:10 Follow up: Response: No adverse reaction bp 05/25 21:32 CANCELLED (Physician Discretion): rocephin1 grams IV at per protocol once; Given slow bp IV push per pharmacy instructions 22:43 Drug: Atorvastatin PO 20 mg PO once Route: PO; bp 05/26 04:10 Follow up: Response: No adverse reaction bp Intake: 04:10 IV: 500ml; Total: 500ml. bp Outcome: 05/25 20:32 Decision to Hospitalize by Provider. robin 05/26 04:19 Admitted to Med/surg accompanied by tech, via wheelchair, room 401, Report called to JESSY Condition: stable Instructed on the need for admit, 04:20 Patient left the ED. bp NIH Stroke Scale - NIH Stroke Score Date: 05/25/2023 Time: 19:24 Total Score = 0 10. Dysarthria (speech clarity - read or repeat words) - 0(Normal) 11. Extinction and Inattention (visual/tactile/auditory/spatial/personal) - 0(No abnormality) 1a. Level of Consciousness (LOC) - 0(Alert) 1b. Level of Consciousness (LOC) (Month \\T\\ Age) - 0(Both) 1c. LOC Commands (Open \\T\\ Closes Eyes/Flow Specialist) - 0(Both) 2. Best Gaze (Lateral Gaze Paresis) - 0(Normal) 3. Visual Field Loss - 0(No visual loss) 4. Facial Palsy - 0(Normal) 5a. Left Arm: Motor (10-second hold) - 0(No drift) 5b. Right Arm: Motor (10-second hold) - 0(No drift) 6a. Left Leg: Motor (5-second hold - always test supine) - 0(No drift) 6b. Right Leg: Motor (5-second hold - always test supine) - 0(No drift) 7. Limb Ataxia (finger/nose \\T\\ heel/tena - test with eyes open) - 0(Absent) 8. Sensory Loss (pinprick arms/legs/face) - 0(Normal) 9. Best Language: Aphasia (description/naming/reading) - 0(No aphasia) Initials: bp NIH Stroke Scale - NIH Stroke Score Date: 05/25/2023 Time: 21:00 Total Score = 0 10. Dysarthria (speech clarity - read or repeat words) - 0(Normal) 11. Extinction and Inattention (visual/tactile/auditory/spatial/personal) - 0(No abnormality) 1a. Level of Consciousness (LOC) - 0(Alert) 1b. Level of Consciousness (LOC) (Month \\T\\ Age) - 0(Both) 1c. LOC Commands (Open \\T\\ Closes Eyes/Flow Specialist) - 0(Both) 2. Best Gaze (Lateral Gaze Paresis) - 0(Normal) 3. Visual Field Loss - 0(No visual loss) 4. Facial Palsy - 0(Normal) 5a. Left Arm: Motor (10-second hold) - 0(No drift) 5b. Right Arm: Motor (10-second hold) - 0(No drift) 6a. Left Leg: Motor (5-second hold - always test supine) - 0(No drift) 6b. Right Leg: Motor (5-second hold - always test supine) - 0(No drift) 7. Limb Ataxia (finger/nose \\T\\ heel/tena - test with eyes open) - 0(Absent) 8. Sensory Loss (pinprick arms/legs/face) - 0(Normal) 9. Best Language: Aphasia (description/naming/reading) - 0(No aphasia) Initials: bp Signatures: Dispatcher [employer] EDJean Quinteros MD MD cha Calderon, Audri, RN RN aa5 Morales Lubin RN RN bp Cesar Palumbo RN RN ll1 Luz Fountain mg5 Corrections: (The following items were deleted from the chart) 05/25 19:21 18:50 Chief complaint: aa5 aa5 19:23 18:50 Chief complaint: Pt's states "she looked like she was sleeping aa5 outside in the porch and I woke her up and she went inside the house but I heard a loud thump and she had fallen onto her back, she then started slurring and confused when she woke up". Pt takes Plavix. No slurring noted at this time. Chief complaint: Pt's states "she looked like she was sleeping outside in the porch and I woke her up and she went inside the house but I heard a loud thump and she had fallen onto her back, she then started slurring and confused when she woke up". Pt takes Plavix. No slurring noted at this time. aa5
--- NOTE | 2023-05-25 20:33 | EDPHYS ---
Physician Documentation [facility] Name: Cassie Huang Age: 73 yrs Sex: Female : 1950 Arrival Date: 05/25/2023 Time: 18:41 Bed 14 Private MD: ED Physician Jean Palm HPI: 05/25 18:54 This 73 yrs old Female presents to ER via Wheelchair with complaints of robin Confussion, Syncope, Slurred Speech. Historical: - Allergies: 18:50 lactose (bulk); ll1 18:50 Levaquin; ll1 - PMHx: 18:50 High Cholesterol; CHF; Hypertension; Hypothyroidism; ll1 - PSHx: 18:50 Carotid endarterectomy; cataract repair; leg bypass; ll1 - Immunization history:: Adult Immunizations up to date. ROS: 20:01 Constitutional: Negative for fever, chills, and weight loss, Eyes: Negative for injury, robin pain, redness, and discharge, ENT: Negative for injury, pain, and discharge, Neck: Negative for injury, pain, and swelling, Cardiovascular: Negative for chest pain, palpitations, and edema, Respiratory: Negative for shortness of breath, cough, wheezing, and pleuritic chest pain, Abdomen/GI: Negative for abdominal pain, nausea, vomiting, diarrhea, and constipation, Back: Negative for injury and pain, : Negative for injury, bleeding, discharge, and swelling, MS/Extremity: Negative for injury and deformity, Skin: Negative for injury, rash, and discoloration, Neuro: Negative for headache, weakness, numbness, tingling, and seizure, Psych: Negative for depression, anxiety, suicide ideation, homicidal ideation, and hallucinations, Allergy/Immunology: Negative for hives, rash, and allergies, Endocrine: Negative for neck swelling, polydipsia, polyuria, polyphagia, and marked weight changes, Hematologic/Lymphatic: Negative for swollen nodes, abnormal bleeding, and unusual bruising, Exam: 20:01 Constitutional: This is a well developed, well nourished patient who is awake, alert, robin and in no acute distress. Head/Face: Normocephalic, atraumatic. Eyes: Pupils equal round and reactive to light, extra-ocular motions intact. Lids and lashes normal. Conjunctiva and sclera are non-icteric and not injected. Cornea within normal limits. Periorbital areas with no swelling, redness, or edema. ENT: Nares patent. No nasal discharge, no septal abnormalities noted. Tympanic membranes are normal and external auditory canals are clear. Oropharynx with no redness, swelling, or masses, exudates, or evidence of obstruction, uvula midline. Mucous membranes moist. Neck: Trachea midline, no thyromegaly or masses palpated, and no cervical lymphadenopathy. Supple, full range of motion without nuchal rigidity, or vertebral point tenderness. No Meningismus. Chest/axilla: Normal chest wall appearance and motion. Nontender with no deformity. No lesions are appreciated. Cardiovascular: Regular rate and rhythm with a normal S1 and S2. No gallops, murmurs, or rubs. Normal PMI, no JVD. No pulse deficits. Respiratory: Lungs have equal breath sounds bilaterally, clear to auscultation and percussion. No rales, rhonchi or wheezes noted. No increased work of breathing, no retractions or nasal flaring. Abdomen/GI: Soft, non-tender, with normal bowel sounds. No distension or tympany. No guarding or rebound. No evidence of tenderness throughout. Back: No spinal tenderness. No costovertebral tenderness. Full range of motion. Skin: Warm, dry with normal turgor. Normal color with no rashes, no lesions, and no evidence of cellulitis. MS/ Extremity: Pulses equal, no cyanosis. Neurovascular intact. Full, normal range of motion. Neuro: Awake and alert, GCS 15, oriented to person, place, time, and situation. Cranial nerves II-XII grossly intact. Motor strength 5/5 in all extremities. Sensory grossly intact. Cerebellar exam normal. Normal gait. Psych: Awake, alert, with orientation to person, place and time. Behavior, mood, and affect are within normal limits. 20:01 ECG was reviewed by the Attending Physician. Vital Signs: 19:00 BP 188 / 94; Pulse 87; Resp 13; Temp 98; Pulse Ox 100% ; bp 19:10 BP 189 / 84; Pulse 87; Resp 18 S; Temp 97.8(TE); Pulse Ox 100% on R/A; aa5 21:00 BP 178 / 93; Pulse 75; Resp 13; Pulse Ox 100% ; bp 23:00 BP 220 / 71; Pulse 79; Resp 15; Pulse Ox 100% ; bp 05/26 01:00 BP 195 / 59; Pulse 67; Resp 16; Pulse Ox 100% ; bp 03:00 BP 133 / 46; Pulse 63; Resp 16; Pulse Ox 97% ; bp NIH Stroke Scale Scores: 05/25 19:24 NIHSS Score: 0 bp 21:00 NIHSS Score: 0 bp MDM: 18:54 Patient medically screened. robin 20:02 Data reviewed: vital signs, nurses notes, lab test result(s), EKG, radiologic studies. [facility] 20:27 Differential Diagnosis: cardiac arrhythmia, cerebrovascular accident, GI bleed, robin idiopathic syncope, seizure, transient ischemic attack, vasovagal episode. Consideration of Admission/Observation Patient was admitted/placed on observation. Escalation of care including admission/observation considered. Management of patient was discussed with the following: Primary Care Provider: DR BRODY. I considered the following discharge prescriptions or medication management in the emergency department Medications were administered in the Emergency Department. See MAR. Independent interpretation of the following test(s) in the Emergency Department EKG: See my EKG interpretation above. Test considered but Not performed: Ultrasound NO ABD USG. Care significantly affected by the following chronic conditions: Hypertension, Congestive Heart Failure, Obesity, HYPOTHYROID, HIGH CHOLESTEROL. 20:29 ED course: GABINO AGUILAR AT 530 PM SYNCOPE X 2 THEN FALL IN ROOM, POSSIBLE SLURRED robin SPEECH, RESOLVED BEFORE ARRIVAL TO ED, ON ASA/PLAVIX, NO TNK, NIH 0, PER JEFF. 05/25 18:53 Order name: Basic Metabolic Panel; Complete Time: 20:36 [facility] 05/25 18:53 Order name: CBC with Diff; Complete Time: 20:00 [facility] 05/25 18:53 Order name: High Sensitivity Troponin; Complete Time: 20:36 [facility] 05/25 18:53 Order name: Protime (+inr); Complete Time: 20:22 [facility] 05/25 18:53 Order name: Ptt, Activated; Complete Time: 20:22 [facility] 05/25 18:57 Order name: LFT's [facility] 05/25 18:57 Order name: Magnesium [facility] 05/25 18:57 Order name: NT PRO-BNP [facility] 05/25 18:57 Order name: Urinalysis w/ reflexes; Complete Time: 20:22 [facility] 05/25 18:57 Order name: Lipase [facility] 05/25 22:30 Order name: Lipid Profile [facility] 05/25 23:42 Order name: CREATININE WHOLE BLOOD [facility] 05/26 00:10 Order name: Lipid Profile [facility] 05/26 01:50 Order name: CBC with Automated Diff [facility] 05/26 02:18 Order name: Troponin High Sensitivity [facility] 05/26 02:19 Order name: Basic Metabolic Panel [facility] 05/25 18:53 Order name: CT Stroke Brain w/o Contrast; Complete Time: 20:00 [facility] 05/25 18:53 Order name: Stroke CXR 1 View; Complete Time: 20:36 [facility] 05/25 18:57 Order name: CT Head Angio [facility] 05/25 18:57 Order name: CT Neck Angio [facility] 05/25 19:19 Order name: Brain Wo Cont; Complete Time: 21:50 [facility] 05/25 19:21 Order name: CT C Spine [facility] 05/25 21:54 Order name: CT [facility] 05/25 22:09 Order name: CT [facility] 05/25 18:53 Order name: EKG; Complete Time: 18:56 [facility] 05/25 20:45 Order name: CONS Physician Consult [facility] 05/25 20:45 Order name: CONS Physician Consult [facility] 05/25 18:53 Order name: Accucheck; Complete Time: 19:27 [facility] 05/25 18:53 Order name: Cardiac monitoring; Complete Time: 19:27 [facility] 05/25 18:53 Order name: EKG - Nurse/Tech; Complete Time: 19:50 [facility] 05/25 18:53 Order name: IV Saline Lock; Complete Time: 19:53 [facility] 05/25 18:53 Order name: Labs collected and sent; Complete Time: 19:53 [facility] 05/25 18:53 Order name: NPO; Complete Time: 19:27 [facility] 05/25 18:53 Order name: O2 Per Protocol; Complete Time: 19:27 [facility] 05/25 18:53 Order name: O2 Sat Monitoring; Complete Time: 19:27 [facility] 05/25 18:53 Order name: Stroke Swallow Screen; Complete Time: 19:27 EC:01 Rate is 82 beats/min. Rhythm is regular. QRS [place] is Normal. ND interval is normal. QRS robin interval is normal. QT interval is normal. No Q waves. T waves are Normal. No ST changes noted. Clinical impression: NSR w/ Non-specific ST/T Changes, LVH, and No evidence of ischemia. Interpreted by me. Reviewed by me. Administered Medications: 18:58 CANCELLED (Duplicate Order): ns 0.9% 1000 ml IV at 1 bolus Per protocol; 1000 mL bolus robin 19:30 Drug: foLIC Acid IVPB 1 mg IVPB once Route: IVPB; Site: right antecubital; bp 05/26 04:11 Follow up: IV Status: Completed infusion bp 05/25 19:30 Drug: NS 0.9% IV 500 ml IV at bolus once Route: IV; Rate: bolus; Site: right forearm; bp 05/26 04:10 Follow up: IV Status: Completed infusion; IV Intake: 500ml bp 05/25 19:30 Drug: NS 0.9% IV 1000 ml IV at 125 ml/hr continuous Route: IV; Rate: 125 ml/hr; Site: bp right forearm; 05/26 04:10 Follow up: IV Status: Infusion continued upon admission bp 05/25 19:30 Drug: Clopidogrel PO 75 mg PO once Route: PO; bp 05/26 04:10 Follow up: Response: No adverse reaction bp 05/25 19:30 Drug: Aspirin PO 162 mg PO once Route: PO; bp 05/26 04:10 Follow up: Response: No adverse reaction bp 05/25 21:30 Drug: Metoprolol PO 25 mg PO once Route: PO; bp 05/26 04:10 Follow up: Response: No adverse reaction bp 05/25 21:30 Drug: Enoxaparin Sub-Q 60 mg Sub-Q once Route: Sub-Q; Site: left lower abdomen; bp 05/26 04:10 Follow up: Response: No adverse reaction bp 05/25 21:32 CANCELLED (Physician Discretion): rocephin1 grams IV at per protocol once; Given slow bp IV push per pharmacy instructions 22:43 Drug: Atorvastatin PO 20 mg PO once Route: PO; bp 05/26 04:10 Follow up: Response: No adverse reaction bp Disposition Summary: 05/25/23 20:32 Hospitalization Ordered Notes: Hospitalization Status: Observation robin Provider: Sumeet Brody cha Condition: Fair robin Problem: new robin Symptoms: have improved robin Bed/Room Type: Standard robin Location: Telemetry/MedSurg (Inpatient)(05/26/23 02:36) rv1 Room Assignment: 401(05/26/23 02:36) rv1 Diagnosis - Syncope Near robin - Weakness robin - Non ST elevation [place] robin - Occlusion and stenosis of left carotid artery - moderate to severe robin - Occlusion and stenosis of right carotid artery - less than 50% robin Forms: - Medication Reconciliation Form robin - SBAR form robin - Leadership Thank You Letter robin NIH Stroke Scale - NIH Stroke Score Date: 05/25/2023 Time: 19:24 Total Score = 0 10. Dysarthria (speech clarity - read or repeat words) - 0(Normal) 11. Extinction and Inattention (visual/tactile/auditory/spatial/personal) - 0(No abnormality) 1a. Level of Consciousness (LOC) - 0(Alert) 1b. Level of Consciousness (LOC) (Month \T\ Age) - 0(Both) 1c. LOC Commands (Open \T\ Closes Eyes/Customer Sales Specialist) - 0(Both) 2. Best Gaze (Lateral Gaze Paresis) - 0(Normal) 3. Visual Field Loss - 0(No visual loss) 4. Facial Palsy - 0(Normal) 5a. Left Arm: Motor (10-second hold) - 0(No drift) 5b. Right Arm: Motor (10-second hold) - 0(No drift) 6a. Left Leg: Motor (5-second hold - always test supine) - 0(No drift) 6b. Right Leg: Motor (5-second hold - always test supine) - 0(No drift) 7. Limb Ataxia (finger/nose \T\ heel/tena - test with eyes open) - 0(Absent) 8. Sensory Loss (pinprick arms/legs/face) - 0(Normal) 9. Best Language: Aphasia (description/naming/reading) - 0(No aphasia) Initials: bp NIH Stroke Scale - NIH Stroke Score Date: 05/25/2023 Time: 21:00 Total Score = 0 10. Dysarthria (speech clarity - read or repeat words) - 0(Normal) 11. Extinction and Inattention (visual/tactile/auditory/spatial/personal) - 0(No abnormality) 1a. Level of Consciousness (LOC) - 0(Alert) 1b. Level of Consciousness (LOC) (Month \T\ Age) - 0(Both) 1c. LOC Commands (Open \T\ Closes Eyes/Customer Sales Specialist) - 0(Both) 2. Best Gaze (Lateral Gaze Paresis) - 0(Normal) 3. Visual Field Loss - 0(No visual loss) 4. Facial Palsy - 0(Normal) 5a. Left Arm: Motor (10-second hold) - 0(No drift) 5b. Right Arm: Motor (10-second hold) - 0(No drift) 6a. Left Leg: Motor (5-second hold - always test supine) - 0(No drift) 6b. Right Leg: Motor (5-second hold - always test supine) - 0(No drift) 7. Limb Ataxia (finger/nose \T\ heel/tena - test with eyes open) - 0(Absent) 8. Sensory Loss (pinprick arms/legs/face) - 0(Normal) 9. Best Language: Aphasia (description/naming/reading) - 0(No aphasia) Initials: bp Signatures: Dispatcher [employer] EDMS Jean Palm MD MD cha Calderon, Audri, RN RN aa5 Morales Lubin RN RN bp Lewis, Lynsay, RN RN ll1 Donna James rv1 Corrections: (The following items were deleted from the chart) 05/25 18:58 18:57 NS 0.9% IV 1000 ml IV at 1 bolus Per protocol; 1000 mL bolus ordered. robin robin 19:04 18:57 Head Angio+CT.RAD.BRZ ordered. EDMS EDMS 19:19 18:58 MR STROKE PROTOCOL+MRI.RAD.BRZ ordered. EDLA EDMS 21:32 20:49 Rocephin IV 1 grams IV at per protocol once; Given slow IV push per bp pharmacy instructions ordered. robin 22:34 20:32 Telemetry/MedSurg (observation) robin bp 22:34 20:32 robin bp 05/26 02:36 05/25 22:34 [facility] ER HOLD bp rv1 05/26 02:36 05/25 22:34 ERHOLD- bp rv1
--- NOTE | 2023-05-25 21:15 | RAD REPORT ---
EXAM DESCRIPTION: MRI - Brain Wo Cont - 05/25/2023 8:53 pm CLINICAL HISTORY: STROKE ALERT COMPARISON: Noncontrast head CT of earlier the same day TECHNIQUE: Multiplanar multisequence MRI of the brain performed without IV contrast. FINDINGS: Motion artifact somewhat limits evaluation, despite attempts at repeat imaging. No evidence of acute infarct or other diffusion signal abnormality. Small focus of near CSF signal in tensity and adjacent gliosis in the left inferior cerebellar hemisphere, suggestive of a remote small infarct. No evidence of acute intracranial hemorrhage or abnormal extra-axial fluid collections. Mild diffuse parenchymal volume loss. Ventricular caliber otherwise within normal for age. Midline st ructures are unremarkable. Scattered subcortical and deep white matter T2/FLAIR hyperintensities, nonspecific, but suggestive of chronic small vessel ischemic changes. No mass effect or midline shift. Major vascular flow voids are preserved. Mastoid air cells and paranasal sinuses are clear. IMPRESSION: No acute intracranial process. No evidence of ventriculomegaly or mass effect. Chronic findings as above.
--- NOTE | 2023-05-25 21:53 | RAD REPORT ---
EXAM DESCRIPTION: CT - Neck Angio - 05/25/2023 9:03 pm CLINICAL HISTORY: HEADACHE COMPARISON: C Spine Wo Con dated 05/25/2023; Head angio dated 05/25/2023 TECHNIQUE: Axial CT angiography images of the head was performed with multiplanar and maximum intens ity projection reconstructions. Images performed following intravenous administration of 100mL Isovue 370. All CT scans are performed using dose optimization technique as appropriate and may include automated exposure control or mA/KV adjustment according to patient size. Quantification of carotid stenosis, if any, is performed according to NASCET criteria. FINDINGS: A left aortic arch is identified with normal three vessel configuration of the great vesse ls. 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 Moderate to severe narrowing at the origin of the left common carotid artery. No other significant fl ow abnormality is seen of the common carotid bilaterally. No significant stenosis is identified involving the cervical segments of both internal carotid arteri es. Minimal caliber attenuation due to non calcified atherosclerotic plaque of the proximal right ICA . Both vertebral arteries are occluded at their origins and reconstitute at mid V2 segments. The right vertebral artery is nondominant. IMPRESSION: Moderate to severe atherosclerotic narrowing at the origin of the left common carotid ar juvenal. Minimal caliber attenuation of the proximal right ICA, with less than 50% stenosis. 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 CAROTID STENOSIS REFERENCE USING NASCET CRITERIA: % ICA stenosis = (1 - narrowest ICA diameter/diameter of distal cervical ICA) x 100. Mild - <50% stenosis. Moderate - 50-69% stenosis. Severe - 70-94% stenosis. Near occlusion - 95-99% stenosis. Occluded - 100% stenosis.
[2023-05-25] MEDS ORDERED: ENOXAPARIN 60 MG/0.6 ML SQ ONE (21:54)
[2023-05-25] MEDS ORDERED: METOPROLOL TAR 25 MG TAB ONE (21:54)
--- NOTE | 2023-05-25 22:09 | RAD REPORT ---
EXAM DESCRIPTION: CT - C Spine Wo Con - 05/25/2023 9:03 pm CLINICAL HISTORY: Pain COMPARISON: None. TECHNIQUE: Axial noncontrast thin axial CT images of the cervical spine were obtained with sagittal and coronal reconstruction images generated and reviewed. All CT scans are performed using dose optimization technique as appropriate and may include automated exposure control or mA/KV adjustment according to patient size. FINDINGS: Cervical body height and alignment are normal. Multilevel degenerative changes with endplate remodeling and minimal spondylolisthesis. Suspected mil d central canal stenosis. Variable degrees of neural foraminal narrowing due to uncovertebral joint a nd facet arthropathy, up to moderate to severe on the right at C3-4 and C5-6, and on the left at C5-6 and C6-7. No fracture or acute bony abnormality. No paraspinal mass or hematoma. IMPRESSION: No acute fracture or subluxation of the cervical spine. Multilevel degenerative changes as above.
--- NOTE | 2023-05-25 22:19 | RAD REPORT ---
EXAM DESCRIPTION: CT - Head angio - 05/25/2023 9:03 pm CLINICAL HISTORY: STROKE ALERT COMPARISON: Ct Stroke Brain Wo Cont dated 05/25/2023 TECHNIQUE: Axial CT angiography images of the head was performed with multiplanar and maximum intens ity projection reconstructions. Images performed following intravenous administration of 100mL Isovue 370. All CT scans are performed using dose optimization technique as appropriate and may include automated exposure control or mA/KV adjustment according to patient size. FINDINGS: No evidence of large vessel occlusion. No evidence of aneurysm or dissection flap is detec matteo. No flow-limiting stenosis or vascular malformation identified. Antegrade flow is seen in the vertebral arteries. The vertebral arteries are codominant. The visualized dural venous sinuses are grossly patent. IMPRESSION: No evidence of large vessel occlusion or flow-limiting stenosis.
[2023-05-25] MEDS ORDERED: ATORVASTATIN 20 MG TAB ONE (22:50)
[2023-05-26 00:10] LABS: HDL Cholesterol 56 mg/dL (40-60); LDL Cholesterol, Calculated 39 mg/dL (<130)
[2023-05-26] MEDS: NA CHLORIDE 0.9% 1,000 ML IV SCH ×2 (00:37→10:37)
[2023-05-26] MEDS ORDERED: ONDANSETRON 4 MG/2 ML VIAL IV PRN (00:37)
[2023-05-26] MEDS: ENOXAPARIN 60 MG/0.6 ML SQ SCH ×2 (00:37→09:00)
[2023-05-26] MEDS ORDERED: ACETAMINOPHEN 500 MG TAB PO PRN (00:37)
[2023-05-26] MEDS ORDERED: FAMOTIDINE 20 MG/2 ML VIAL IV ONE (01:00)
[2023-05-26 01:36] LABS: Absolute Lymphocytes (CBC) 2.9 K/uL (0.7-4.9); Hematocrit 32.8 % (36.0-45.0); Lymphocytes % 34.6 % (15.3-44.8); MPV 7.4 fL (7.6-11.3); Platelets 205 thou/uL (152-406); RBC Red Blood Cell Count 3.38 M/uL (3.86-4.86)
[2023-05-26 02:15] LABS: Potassium 3.5 mEq/L (3.5-5.1)
[2023-05-26 04:11] VITALS: BMI 26.6
[2023-05-26] MEDS ORDERED: ASPIRIN EC 81 MG TAB PO SCH (09:00)
[2023-05-26] MEDS ORDERED: FOLIC ACID 1 MG in NA CHLORIDE 0.9% 50 ML IV SCH (09:00)
[2023-05-26] MEDS ORDERED: FAMOTIDINE 20 MG/2 ML VIAL IV SCH (09:00)
[2023-05-26] MEDS ORDERED: CLOPIDOGREL 75 MG TABLET PO SCH (09:00)
[2023-05-26 09:19] VITALS: O2SAT 97
[2023-05-26 12:57] VITALS: BP 181/77; TEMP 97.7
--- NOTE | 2023-05-26 15:10 | EKG ---
Test Date: 2023-05-26 Test Time: 10:29:53 Towel Weaver: DION MEASUREMENT RESULTS: Intervals: Rate: 66 [place]: 148 QRSD: 96 QT: 442 QTc: 463 [place]: P: 77 [place]: 148 QRS: 74 T: 121 INTERPRETIVE STATEMENTS: Normal sinus rhythm Minimal voltage criteria for LVH, may be normal variant Nonspecific ST and T wave abnormality Abnormal ECG Compared to ECG 05/25/2023 19:30:10 ST (T wave) deviation now present Electronically Signed On 05-26-23 15:09:56 SPECIAL WEAPONS AND TACTICS OFFICER by Kulwinder Peterson
--- NOTE | 2023-05-26 15:13 | EKG ---
Test Date: 2023-05-25 Test Time: 19:30:10 Insulation Helper: BERNICE MEASUREMENT RESULTS: Intervals: Rate: 82 [place]: 142 QRSD: 94 QT: 410 QTc: 479 [place]: P: 88 [place]: 142 QRS: 89 T: 90 INTERPRETIVE STATEMENTS: Normal sinus rhythm Minimal voltage criteria for LVH, may be normal variant Borderline ECG Compared to ECG 08/06/2022 13:17:51 Left ventricular hypertrophy now present ST (T wave) deviation no longer present Electronically Signed On 05-26-23 15:10:39 MARINE CARGO INSPECTOR by Kulwinder Peterson
--- NOTE | 2023-05-27 00:31 | SS ---
Date of Discharge: 05/26/2023 History Of Present Illness: The patient presented to the emergency room with symptoms of syncope or near syncope, confusion, and some slurred speech. This was recognized by her . According to the patient, she had been working outside yesterday and has bent over and changed position frequently as well. Came into the house, sat down, and apparently this episode happened. By the time she was in the ER, basically it cleared. time was 5 minutes or less. Past History: The patient has long history of cardiovascular events, including endarterectomies, car otids, bilateral and stents. Sees a test rider in [place]. She has been on various medications fo r this, which she has continued. She has recently had a change in her statin medication, otherwise h as been stable. In the ER, slightly hypertensive, which has fluctuated from time to time to slightly dehydrated and I V was started felt that she has a window for clot busters and therefore, we just maintaine d her usual medication plus IV fluids. She had slight elevation of the troponin on 2 occasions, seen by Cardiology, felt possibly was secondary to trauma. The neurologist felt she could be discharged to follow up with him on an outpatient basis for EEGs. When I saw her, she was fully orientated. Sp eech was normal. Excello that she was at baseline and she was discharged in good condition. Continue o n her same medication. To follow up with Dr. Nava for EEG; test rider in [place] as necessary, she usually does an annual stress test and visit; and my office mid week. HR/MODL Voice ID: [id number] Report ID: [id number]
== END 2023-05-26 14:40 | disposition home or self-care (01) | DRG 282 ==
LOC: ER 18:41 → ERHOLD 20:41 → 4TH 05-26 03:31
PROVIDERS: ADMIT Family Medicine; ATTEND Family Medicine
DX: I21.4 Non-ST elevation (NSTEMI) myocardial infarction (principal); E86.0 Dehydration; I10 Essential (primary) hypertension; E03.9 Hypothyroidism, unspecified; E78.00 Pure hypercholesterolemia, unspecified; I65.23 Occlusion and stenosis of bilateral carotid arteries; Z88.8 Allergy status to other drugs, medicaments and biological substances; R55 Syncope and collapse; Z88.1 Allergy status to other antibiotic agents; W18.30XA Fall on same level, unspecified, initial encounter; Y93.9 Activity, unspecified; Y99.9 Unspecified external cause status; Y92.019 Unspecified place in single-family (private) house as the place of occurrence of the external cause
CPT/HCPCS: 36415; 70450; 70496; 70498; 70551; 71045; 72125; 80048; 80061; 80076; 81001; 82565; 82947; 83690; 83735; 83880; 84484; 85025; 85610; 85730; 93005; J1650; J7030; Q9967